=== PATIENT | male | born 1940 | race Caucasian/White ===

== ENCOUNTER → 2018-03-09 11:28 | Outpatient (CLI) | payer MEDICARE, SELFPAY ==
--- NOTE | 2018-03-09 11:35 | XR_ITS ---
XR KUB HISTORY: ITS.REASON: BLADDER CLACULUS ORDERING PHYSICIAN: Cong King MD PATIENT AGE: 77 years COMPARISON: None FINDINGS: The bowel gas pattern is unremarkable. No obvious obstruction.. No abnormal calcifications are evident. No obvious renal or ureteral calculi.. No acute bony anomalies evident. There are calcifications on the left-sided pelvis likely phleboliths. I see no definite abnormal calculus overlying the region of the urinary bladder. 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
== END ==
PROVIDERS: PCP Nurse Practitioner Family; Visit Provider Urology
DX: N21.0 Calculus in bladder (principal)
CPT/HCPCS: 74018

== ENCOUNTER → 2018-07-13 12:36 | Outpatient (CLI) | payer MEDICARE, SELFPAY | PROVIDERS: PCP Nurse Practitioner Family; Visit Provider Urology | DX: R97.20 Elevated prostate specific antigen [PSA] (principal) | CPT/HCPCS: 36415; 84153 ==

== ENCOUNTER → 2019-05-03 10:41 | Outpatient (CLI) | payer MEDICARE, SELFPAY ==
--- NOTE | 2019-05-03 10:45 | XR_ITS ---
PROCEDURE: XR CHEST 2V CLINICAL HISTORY: COUGH COMPARISON: No exams were available for comparison FINDINGS: There is mild cardiomegaly. There has been a prior median sternotomy. No CHF. Slight density is noted in the left lung base and could be due to an area of atelectasis or infiltrate. There is minimal blunting of the left CP angle. No acute bony findings. IMPRESSION: Mild left basilar atelectasis or infiltrate with small left effusion Dictated by: Taurus James MD 05/03/2019 17:04 Electronically signed by Taurus James MD in [place] 05/03/2019 17:04
== END ==
PROVIDERS: PCP Nurse Practitioner Family; Visit Provider Nurse Practitioner Family
DX: R05 Cough (principal)
CPT/HCPCS: 71046

== ENCOUNTER → 2019-06-14 13:09 | Outpatient (POV) | payer MEDICARE, SELFPAY | PROVIDERS: Visit Provider Dermatology | DX: Z00.00 Encounter for general adult medical examination without abnormal findings (principal) ==

== ENCOUNTER → 2019-09-23 10:44 | Outpatient (CLI) | payer MEDICARE, SELFPAY ==
--- NOTE | 2019-09-23 10:50 | XR_ITS ---
PROCEDURE: XR CHEST 2V CLINICAL HISTORY: COUGH COMPARISON: XR CHEST 2V from 05/03/2019 FINDINGS: There has been a prior median sternotomy. There is moderate patient rotation. There is borderline cardiomegaly without failure. Lungs are clear. There are mild degenerative changes in the thoracic spine No acute bony abnormalities. IMPRESSION: No acute findings. Dictated by: Taurus James MD 09/23/2019 11:24 Electronically signed by Taurus James MD in [place] 09/23/2019 11:24
== END ==
PROVIDERS: PCP Nurse Practitioner Family; Visit Provider Nurse Practitioner Family
DX: R05 Cough (principal)
CPT/HCPCS: 71046

== ENCOUNTER → 2020-02-29 11:09 | Outpatient (CLI) | payer MEDICARE, SELFPAY ==
[2020-02-29 13:21] LABS: Alanine Aminotransferase 16 U/L (12-78); Albumin/Globulin Ratio 1.3 (1.1-1.8); Alkaline Phosphatase 74 U/L (38-126); Anion Gap 10.2 mEq/L (5-15); Aspartate Amino Transferase 30 U/L (17-59); Bilirubin,Total 1.6 mg/dl (0.2-1.3); Blood Urea Nitrogen 17 mg/dl (9-20); Carbon Dioxide 29 mmol/L (22.0-30.0); Chloride 100 mmol/L (98-107); Cholesterol 119 mg/dl (140-200); Estimated Glomerular Filt Rate 93 ml/min (>60); GFR (African American) 113 ML/MIN (>60); Glucose 93 mg/dl (74-100); HDL Cholesterol 60 mg/dl (40-60); Potassium 4.2 mmoL/L (3.5-5.1); Sodium 135 mmol/L (136-145); Triglycerides 64 mg/dl (30-150); VLDL Cholesterol 13 mg/dL (0-40)
[2020-02-29 13:32] LABS: Direct LDL Cholesterol 53.76 mg/dL (100-129)
== END ==
PROVIDERS: Visit Provider Internal Medicine Cardiovascular Disease
DX: E78.2 Mixed hyperlipidemia (principal)
CPT/HCPCS: 36415; 80053; 80061

== ENCOUNTER → 2020-05-01 11:10 | Outpatient (POV) | payer MEDICARE, SELFPAY | PROVIDERS: Visit Provider Dermatology | DX: Z00.00 Encounter for general adult medical examination without abnormal findings (principal) ==

== ENCOUNTER → 2020-10-29 12:44 | Outpatient (CLI) | payer MEDICARE, SELFPAY ==
--- NOTE | 2020-10-29 12:55 | XR_ITS ---
PROCEDURE: XR FOOT WT BEARING LT 3V CLINICAL INDICATION: PAIN COMPARISON: No exams were available for comparison FINDINGS: No fracture or dislocation. No lytic or blastic change. There is normal mineralization. There is mild hallux valgus with mild osteoarthritic change of the 1st metatarsophalangeal joint and at the 1st interphalangeal joint. Flexion deformity involves the 2nd through 5th toes. There is a lucency present at the base of the 5th metatarsal and may be due to an old fracture or ununited ossification center. Other findings:None. IMPRESSION: The flexion deformity of the toes with old fracture versus ununited ossification center at the base of the 5th metatarsal. Mild hallux valgus with osteoarthritic change of the 1st MTP joint and 1st interphalangeal joint Dictated by: Taurus James MD 10/29/2020 13:39 Taurus James MD in [place] 10/29/2020 13:39
--- NOTE | 2020-10-29 12:55 | XR_ITS ---
PROCEDURE: XR FOOT WT BEARING RT 3V CLINICAL INDICATION: PAIN COMPARISON: No exams were available for comparison FINDINGS: No fracture or dislocation. No lytic or blastic change. There is normal mineralization. Flexion deformity involves the 1st 2nd 3rd 4th and 5th toes. No significant arthritic change. Other findings:None. IMPRESSION: Flexion deformity of the toes otherwise negative Dictated by: Taurus James MD 10/29/2020 13:37 Taurus James MD in [place] 10/29/2020 13:37
== END ==
PROVIDERS: PCP Nurse Practitioner Family; Visit Provider Podiatrist
DX: M79.673 Pain in unspecified foot (principal)
CPT/HCPCS: 73630

== ENCOUNTER → 2020-11-16 09:27 | Outpatient (CLI) | payer MEDICARE, SELFPAY ==
--- NOTE | 2020-11-16 09:37 | MR_ITS ---
PROCEDURE: MR ABDOMEN WO/W CON CLINICAL INDICATION: EVALUATE LIVER LESION No prior abdominal imaging done here. Pt had prior cholecystectomy and denies any abdominal pain. Pt's son states he has this area on his liver for years , had imaging many years ago, and was told it was nothing to worry about. Pt's bilirubin has recently elevated from 1.1 to 1.6. His new doctor wanted imaging to evaluate the liver and bile ducts. COMPARISON: DX XR CHEST 2V from 09/23/2019 TECHNIQUE: Routine multiplanar multi echo sequences are performed without and with gadolinium enhancement. FINDINGS: There is a 3 x 1.7 x 1.8 cm lobulated lesion within the anterior segment of the right hepatic lobe hypointense on T1 and hyperintense on T2 demonstrating lobular peripheral contrast enhancement with centripetal filling in of the enhancement on the delayed images. This is consistent with a hemangioma. There is some nonspecific flash enhancement adjacent to this lesion on the arterial phase images and also some minimal subcapsular enhancement just posterior to this area on the arterial images. Incidental note is made of a small cystic area in the body of the pancreas posteriorly measuring approximately 7 mm and suggestion of a small cystic area in the tail the pancreas at 7 mm. Motion artifact somewhat obscures fine detail at these areas. There are small bilateral renal cysts. Artifact is present from median sternotomy wires. There has been a prior cholecystectomy. There is mild biliary ectasia which may be reservoir response to the prior cholecystectomy. No filling defects are evident. No evidence of common duct stones. IMPRESSION: 1. 3 cm lobulated lesion in the right hepatic lobe consistent with a hemangioma as described above. 2. Nonspecific flash enhancement adjacent to this area and in the right hepatic lobe laterally. 3. Prior cholecystectomy with mild biliary ectasia. 4. Small cystic lesions of the pancreas nonspecific. Follow-up may confirm stability. Dictated by: Taurus James MD 11/18/2020 11:07 Taurus James MD in [place] 11/18/2020 11:07
== END ==
PROVIDERS: PCP Nurse Practitioner Family; Visit Provider Nurse Practitioner Family
DX: D37.6 Neoplasm of uncertain behavior of liver, gallbladder and bile ducts (principal)
CPT/HCPCS: 74183; 76376; A9576

== ENCOUNTER 2020-12-16 12:30 | Emergency (ER) | payer MEDICARE, SELFPAY ==
[2020-12-16 12:40] VITALS: BP 180/101; PULSE 79; RESP 18; TEMP 36.5; O2SAT 97; BMI 23.7
[2020-12-16 13:09] VITALS: BP 165/87; PULSE 79; RESP 18; TEMP 36.5; O2SAT 97; BMI 23.7
[2020-12-16 13:16] LABS: Apearance,Urine Clear (Clear); Color,Urine Dark Yellow (Yellow); Glucose,Urine (UA) Negative (Negative); Ketones,Urine Negative (Negative); Protein,Urine Negative (Negative); Specific Gravity, Urine 1.025 (1.005-1.030)
--- NOTE | 2020-12-16 13:16 | HMH.EDUTC ---
[facility] [place] Disposition Clinical Impression: UTI (urinary tract infection) Qualifiers: Urinary tract infection type: acute cystitis Hematuria presence: with hematuria Qualified Code(s): N30.01 - Acute cystitis with hematuria Disposition: Home, Self-Care Condition on Discharge: Good Instructions: DI for Urinary Tract Infection (UTI) Additional Instructions: Pauly Martinez or your urologist should be able to request urine culture results Thursday afternoon or Thursday to confirm you are on the right antibiotic Prescriptions: levoFLOXacin [Levaquin 500mg tab] 500 mg PO DAILY 7 Days #7 tab Transmission Status: Pending to [facility] Referrals: Pauly aMrtinez [Primary Care Provider] - Time of Disposition: 13:25 Medical Decision Making - Raúl Inquiry Pt receiving controlled substance: No Vital Signs: 12/16/20 12:40 12/16/20 13:09 Temperature 97.7 F 97.7 F Temperature Source Oral Oral Pulse Rate [Left Radial] 79 79 Respiratory Rate 18 18 Blood Pressure [Left Arm] 180/101 H 165/87 H Blood Pressure Mean [Left Arm] 127 113 Blood Pressure Source [Left Arm] Automatic Cuff Automatic Cuff Blood Pressure Position [Left Arm] Sitting Sitting 02 Sat by Pulse Oximetry 97 97 Oxygen Delivery Method Room Air Room Air - Lab Data Lab results reviewed: Yes: I reviewed the patient's lab results. Orders (Tests/Meds): ORDERS Category Date Time Status Urine Culture Stat Micro 12/16/20 13:15 Ordered [facility] [place] HPI - General Stated complaint: possible UTI Time Seen by Provider: 12/16/20 13:17 Mode of Arrival: Ambulatory Source of Information: Patient Limitations: No Limitations Description of Symptoms (Recalled from Triage Doc. by RN): pt reports burning with urination since having a scope to his bladder on Thursday of last week. Pt reports he has previously had a scope and developed a UTI afterwards. Pt reports he did take a 3 day course of Bactrim after procedure last week but his symptoms have not improved. Pt also reports frequent urination. HEENT Symptoms (Recalled from RN notes): No Resp Symptoms (Recalled from RN notes): No Skin Symptoms (Recalled from RN notes): No MS Symptoms (Recalled from RN notes): No Functional Status (Recalled from RN notes): wnl - History of Present Illness Provider Complaint: Patient had a cystoscopy nearly 2 weeks ago for pre-op testing prior to having a procedure for BPH. He took 3 days of Bactrim following procedure. He complains of frequency, urgency, dysuria, and feeling on incomplete emptying of bladder. No fever. No nausea or vomiting. Onset (ago): week(s) (2) Quality: burning Relieving factors: none Exacerbating factors: none Associated symptoms: denies other symptoms Treatments prior to arrival: other (Bactrim) - Related Data Home Medications Medication Instructions Recorded Confirmed dutasteride 0.5 mg capsule 0.5 mg PO ONCE 12/01/17 11/01/20 levothyroxine 50 mcg tablet 50 mcg PO DAILY tab 12/01/17 11/01/20 ropinirole 0.25 mg tablet 0.25 mg PO TID 12/01/17 11/01/20 alfuzosin 10 mg tablet,extended 10 mg PO DAILY 11/01/20 11/01/20 release 24 hr aspirin 81 mg tablet,delayed 81 mg PO DAILY 11/01/20 11/01/20 release atorvastatin 20 mg tablet 20 mg PO DAILY 11/01/20 11/01/20 ergocalciferol (vitamin D2) 1,250 1,250 mcg PO WEEKLY 11/01/20 11/01/20 mcg (50,000 unit) capsule losartan 50 mg tablet 50 mg PO DAILY 11/01/20 11/01/20 metoprolol succinate 50 mg 50 mg PO DAILY 11/01/20 11/01/20 tablet,extended release 24 hr pantoprazole 40 mg tablet,delayed 40 mg PO DAILY 11/01/20 11/01/20 release ropinirole 3 mg tablet 3 mg PO HS 11/01/20 11/01/20 tamsulosin 0.4 mg capsule 0.4 mg PO HS 11/01/20 11/01/20 Previous Rx's Medication Instructions Recorded levoFLOXacin [Levaquin 500mg 500 mg PO DAILY 7 Days #7 tab 12/16/20 tab] Allergies Allergy/AdvReac Type Severity Reaction Status Date / Time No Known Allergies Allergy Verified 11/01/20 1
[2020-12-16 13:17] LABS: Bilirubin,Urine Negative (Negative); Blood, Urine Trace (Negative); UTC Leukocyte Esterase,Urine 2+ (Negative); UTC Nitrate,Urine Negative (Negative); Urobilinogen,Urine 2 EU/dl (0.2)
[2020-12-16 13:37] VITALS: BP 165/87; PULSE 79; RESP 18; TEMP 36.5; O2SAT 97
== END 2020-12-16 13:37 | disposition home or self-care (01) ==
PROVIDERS: Emergency Provider Physician Assistant; PCP Nurse Practitioner Family
DX: N30.01 Acute cystitis with hematuria (principal); I10 Essential (primary) hypertension; E03.9 Hypothyroidism, unspecified; Z79.899 Other long term (current) drug therapy
CPT/HCPCS: G0463; 81003; 87086; 87088; 87186; 99202

== ENCOUNTER → 2021-03-14 12:50 | Outpatient (CLI) | payer MEDICARE, SELFPAY | PROVIDERS: Visit Provider Physician Assistant | DX: R05 Cough (principal) | CPT/HCPCS: 87070; 87205 ==

== ENCOUNTER → 2021-03-18 11:58 | Outpatient (CLI) | payer MEDICARE, SELFPAY ==
--- NOTE | 2021-03-18 | CA_ITS ---
APPROVED REPORT Administrative Aide: SHILPA Laterality: Bilateral Study Quality: Adequate Indications: CVA/ suspected stroke Risk Factors Hypertension: TIA/CVA History Hx. of CVA two years ago Doppler Spectral Velocity Analysis ECA (R) 70.60/7.10 cm/s ECA (L) 59.10/5.80 cm/s dICA (R) 70.60/19.30 cm/s dICA (L) 54.60/18.60 cm/s Rogelio (R) 57.80/18.00 cm/s Rogelio (L) 48.80/16.10 cm/s pICA (R) 33.70/9.60 cm/s pICA (L) 55.20/16.10 cm/s dCCA (R) 48.20/12.20 cm/s dCCA (L) 41.10/9.60 cm/s pCCA (R) 59.90/9.00 cm/s pCCA (L) 49.40/10.90 cm/s Vert (R) 41.10/10.90 cm/s Vert (L) 30.80/9.00 cm/s ICA/CCA 1.47 ICA/CCA 1.34 Findings Study suggests less than 20% stenosis of the bilateral internal carotid arteries. Duplex evaluation demonstrates antegrade flow of the bilateral vertebral arteries. Conclusion Study suggests less than 20% stenosis of the bilateral internal carotid arteries. Duplex evaluation demonstrates antegrade flow of the bilateral vertebral arteries. Electronically signed by : Taurus James MD 03/18/2021 17:16:22
[2021-03-18 12:54] LABS: Basophils # 0.1 K/mm3 (0-0.2); Basophils % 0.4 % (0.1-2.0); Eosinophils # 0.1 K/mm3 (0.0-0.4); Eosinophils % 0.6 % (0.1-12.0); Hematocrit 42.8 % (42.0-52.0); Hemoglobin 13.3 g/dL (14.1-18.0); Lymphocytes # 3.2 K/mm3 (0.7-4.5); Lymphocytes % 27.7 % (10-50); Mean Corpuscular HGB Conc 31.1 g/dL (31.8-35.4); Mean Corpuscular Hemoglobin 27.5 pg (27.0-31.2); Mean Corpuscular Volume 88.4 fl (80-94); Mean Platelet Volume 7.9 fl (7.4-10.4); Monocytes # 0.9 K/mm3 (0.1-1.0); Monocytes % 7.3 % (1.7-9.3); Neutrophils # 7.5 K/mm3 (1.8-7.8); Neutrophils % 63.9 % (37.0-80.0); Platelet Count 200 K/mm3 (142-424); Red Blood Count 4.84 M/mm3 (4.60-6.20); Red Cell Distribution Width 13.9 % (11.5-17.5); White Blood Count 11.7 K/mm3 (4.8-10.8)
[2021-03-18 13:50] LABS: Ferritin 38.7 ng/ml (17.9-464)
== END ==
PROVIDERS: PCP Family Medicine; Visit Provider Specialist
DX: E83.10 Disorder of iron metabolism, unspecified (principal); I63.89 Other cerebral infarction
CPT/HCPCS: 36415; 82728; 82746; 85025; 93880

== ENCOUNTER → 2021-06-18 17:10 | Outpatient (CLI) | payer MEDICARE, SELFPAY ==
[2021-06-18 18:11] LABS: Basophils # 0.1 K/mm3 (0-0.2); Basophils % 0.6 % (0.1-2.0); Eosinophils # 0.1 K/mm3 (0.0-0.4); Eosinophils % 1.8 % (0.1-12.0); Hematocrit 45.3 % (42.0-52.0); Hemoglobin 14.2 g/dL (14.1-18.0); Lymphocytes # 2.3 K/mm3 (0.7-4.5); Lymphocytes % 28.8 % (10-50); Mean Corpuscular HGB Conc 31.4 g/dL (31.8-35.4); Mean Corpuscular Hemoglobin 29.8 pg (27.0-31.2); Mean Corpuscular Volume 94.7 fl (80-94); Mean Platelet Volume 9.7 fl (7.4-10.4); Monocytes # 0.6 K/mm3 (0.1-1.0); Monocytes % 7.6 % (1.7-9.3); Neutrophils # 4.9 K/mm3 (1.8-7.8); Neutrophils % 61.3 % (37.0-80.0); Platelet Count 242 K/mm3 (142-424); Red Blood Count 4.79 M/mm3 (4.60-6.20); Red Cell Distribution Width 14.5 % (11.5-17.5)
[2021-06-18 18:46] LABS: Alanine Aminotransferase 18 U/L (12-78); Albumin Level 3.8 g/dl (3.5-5.0); Albumin/Globulin Ratio 1.4 (1.1-1.8); Alkaline Phosphatase 63 U/L (38-126); Anion Gap 13.2 mEq/L (5-15); Aspartate Amino Transferase 27 U/L (17-59); Bilirubin,Total 1.3 mg/dl (0.2-1.3); Blood Urea Nitrogen 16 mg/dl (9-20); Calcium 8.9 mg/dl (8.4-10.2); Carbon Dioxide 31 mmol/L (22.0-30.0); Chloride 100 mmol/L (98-107); Chol/HDL Ratio 3.5 (1-3.5); Cholesterol 159 mg/dl (140-200); Estimated Glomerular Filt Rate 93 ml/min (>60); GFR (African American) 112 ML/MIN (>60); Globulin 2.8 g/dL (1.3-3.2); Glucose 75 mg/dl (74-100); HDL Cholesterol 46 mg/dl (40-60); Potassium 4.2 mmoL/L (3.5-5.1); Sodium 140 mmol/L (136-145); Total Protein,Serum 6.6 g/dl (6.3-8.2); Triglycerides 64 mg/dl (30-150); VLDL Cholesterol 13 mg/dL (0-40)
[2021-06-18 18:57] LABS: Direct LDL Cholesterol 82.18 mg/dL (100-129)
[2021-06-18 19:14] LABS: Prostate Specific Ag Screen 2.9 ng/ml (0.0-4.0); Thyroid Stimulating Hormone 2.72 uIU/mL (0.465-4.68)
== END ==
PROVIDERS: Visit Provider Internal Medicine
DX: I25.10 Atherosclerotic heart disease of native coronary artery without angina pectoris (principal); I10 Essential (primary) hypertension; E78.5 Hyperlipidemia, unspecified; I69.998 Other sequelae following unspecified cerebrovascular disease; R63.1 Polydipsia; N40.1 Benign prostatic hyperplasia with lower urinary tract symptoms; Z12.5 Encounter for screening for malignant neoplasm of prostate; Z95.3 Presence of xenogenic heart valve
CPT/HCPCS: 80053; 80061; 84443; 85025; G0103

== ENCOUNTER → 2022-04-30 19:27 | Outpatient (CLI) | payer MEDICARE, SELFPAY ==
[2022-04-30 20:27] LABS: Basophils # 0.1 K/mm3 (0-0.2); Basophils % 0.9 % (0.1-2.0); Eosinophils # 0.2 K/mm3 (0.0-0.4); Hematocrit 43.3 % (42.0-52.0); Hemoglobin 13.4 g/dL (14.1-18.0); Lymphocytes # 2.1 K/mm3 (0.7-4.5); Lymphocytes % 27.3 % (10-50); Mean Corpuscular HGB Conc 30.9 g/dL (31.8-35.4); Mean Corpuscular Hemoglobin 28.7 pg (27.0-31.2); Mean Corpuscular Volume 92.8 fl (80-94); Mean Platelet Volume 9.2 fl (7.4-10.4); Monocytes # 0.6 K/mm3 (0.1-1.0); Monocytes % 7.4 % (1.7-9.3); Neutrophils # 4.9 K/mm3 (1.8-7.8); Neutrophils % 62.4 % (37.0-80.0); Platelet Count 250 K/mm3 (142-424); Red Blood Count 4.66 M/mm3 (4.60-6.20); Red Cell Distribution Width 14.4 % (11.5-17.5); White Blood Count 7.8 K/mm3 (4.8-10.8)
[2022-04-30 20:54] LABS: Erythrocyte Sedimentation Rate 10 mm/hr (0-20)
[2022-04-30 20:57] LABS: Alanine Aminotransferase 17 U/L (12-78); Albumin Level 3.8 g/dl (3.5-5.0); Albumin/Globulin Ratio 1.4 (1.1-1.8); Alkaline Phosphatase 74 U/L (38-126); Anion Gap 10.3 mEq/L (5-15); Aspartate Amino Transferase 26 U/L (17-59); Bilirubin,Total 1.2 mg/dl (0.2-1.3); Blood Urea Nitrogen 21 mg/dl (9-20); Calcium 8.5 mg/dl (8.4-10.2); Carbon Dioxide 30 mmol/L (22.0-30.0); Chloride 102 mmol/L (98-107); Chol/HDL Ratio 3.1 (1-3.5); Cholesterol 116 mg/dl (140-200); Estimated Glomerular Filt Rate 81 ml/min (>60); GFR (African American) 98 ML/MIN (>60); Globulin 2.8 g/dL (1.3-3.2); Glucose 69 mg/dl (74-100); HDL Cholesterol 37 mg/dl (40-60); Potassium 4.3 mmoL/L (3.5-5.1); Sodium 138 mmol/L (136-145); Total Protein,Serum 6.6 g/dl (6.3-8.2); Triglycerides 90 mg/dl (30-150); VLDL Cholesterol 18 mg/dL (0-40)
[2022-04-30 21:28] LABS: Prostate Specific Ag Screen 3.4 ng/ml (0.0-4.0); Thyroid Stimulating Hormone 4.01 uIU/mL (0.465-4.68)
[2022-05-02 14:12] LABS: Direct LDL Cholesterol 53 mg/dL (100-129)
== END ==
PROVIDERS: PCP Internal Medicine; Visit Provider Internal Medicine
DX: I25.10 Atherosclerotic heart disease of native coronary artery without angina pectoris (principal); I10 Essential (primary) hypertension; E03.9 Hypothyroidism, unspecified; E78.5 Hyperlipidemia, unspecified; M79.671 Pain in right foot; G25.81 Restless legs syndrome; Z12.5 Encounter for screening for malignant neoplasm of prostate
CPT/HCPCS: 80053; 80061; 84443; 85025; 85651; G0103

== ENCOUNTER → 2023-01-21 17:01 | Outpatient (CLI) | payer MEDICARE, SELFPAY ==
[2023-01-21 18:25] LABS: Basophils % 0.5 % (0.1-2.0); Eosinophils # 0.2 K/mm3 (0.0-0.4); Eosinophils % 2.3 % (0.1-12.0); Hematocrit 44.8 % (42.0-52.0); Hemoglobin 14.1 g/dL (14.1-18.0); Lymphocytes # 2.1 K/mm3 (0.7-4.5); Lymphocytes % 27.4 % (10-50); Mean Corpuscular HGB Conc 31.4 g/dL (31.8-35.4); Mean Corpuscular Hemoglobin 27.9 pg (27.0-31.2); Mean Platelet Volume 9.4 fl (7.4-10.4); Monocytes # 0.7 K/mm3 (0.1-1.0); Neutrophils # 4.6 K/mm3 (1.8-7.8); Neutrophils % 60.7 % (37.0-80.0); Platelet Count 229 K/mm3 (142-424); Red Blood Count 5.04 M/mm3 (4.60-6.20); Red Cell Distribution Width 14.8 % (11.5-17.5); White Blood Count 7.6 K/mm3 (4.8-10.8)
[2023-01-21 19:11] LABS: Alanine Aminotransferase 25 U/L (12-78); Albumin Level 3.9 g/dl (3.5-5.0); Albumin/Globulin Ratio 1.5 (1.1-1.8); Alkaline Phosphatase 66 U/L (38-126); Anion Gap 14.3 mEq/L (5-15); Aspartate Amino Transferase 31 U/L (17-59); Bilirubin,Total 1.4 mg/dl (0.2-1.3); Blood Urea Nitrogen 18 mg/dl (9-20); Calcium 8.6 mg/dl (8.4-10.2); Carbon Dioxide 29 mmol/L (22.0-30.0); Chloride 101 mmol/L (98-107); Chol/HDL Ratio 3.2 (1-3.5); Cholesterol 121 mg/dl (140-200); Estimated Glomerular Filt Rate 81 ml/min (>60); GFR (African American) 98 ML/MIN (>60); Globulin 2.6 g/dL (1.3-3.2); Glucose 81 mg/dl (74-100); HDL Cholesterol 38 mg/dl (40-60); Potassium 4.3 mmoL/L (3.5-5.1); Sodium 140 mmol/L (136-145); Total Protein,Serum 6.5 g/dl (6.3-8.2); Triglycerides 100 mg/dl (30-150); VLDL Cholesterol 20 mg/dL (0-40)
[2023-01-21 19:23] LABS: Direct LDL Cholesterol 61.92 mg/dL (100-129)
[2023-01-21 19:43] LABS: Prostate Specific Ag Screen 3.8 ng/ml (0.0-4.0); Thyroid Stimulating Hormone 3.88 uIU/mL (0.465-4.68)
== END ==
PROVIDERS: PCP Internal Medicine; Visit Provider Internal Medicine
DX: I25.10 Atherosclerotic heart disease of native coronary artery without angina pectoris (principal); I10 Essential (primary) hypertension; E78.5 Hyperlipidemia, unspecified; R53.83 Other fatigue; G25.81 Restless legs syndrome; Z85.820 Personal history of malignant melanoma of skin; Z95.3 Presence of xenogenic heart valve; Z12.5 Encounter for screening for malignant neoplasm of prostate
CPT/HCPCS: 80053; 80061; 84443; 85025; G0103

== ENCOUNTER → 2023-04-06 11:56 | Outpatient (CLI) | payer MEDICARE, SELFPAY ==
--- NOTE | 2023-04-06 12:05 | XR_ITS ---
FINAL REPORT CLINICAL HISTORY: Ankle Pain FINDINGS: LEFT ANKLE Three views demonstrate no acute fracture or dislocation. The visualized joint spaces are normally aligned there are mild degenerative changes. A small posterior calcaneal spur is noted. There is soft tissue swelling. IMPRESSION: No acute bony abnormality. Reviewed, Interpreted and Dictated by Bull Walker III, MD Transcribed by Giselle Ríos Authenticated and [facility]
--- NOTE | 2023-04-06 12:05 | XR_ITS ---
FINAL REPORT CLINICAL HISTORY: Foot Pain COMPARISON: 10/29/2020 FINDINGS: RIGHT FOOT 3 views of the right foot were obtained. There is no acute fracture or dislocation. There are mild degenerative changes. Small calcaneal spurs are seen. There is a stable subchondral focus in the third metatarsal which could represent bone island. Soft tissues are unremarkable. IMPRESSION: No acute bony abnormality. Reviewed, Interpreted and Dictated by Bull Walker III, MD Transcribed by Giselle Ríos Authenticated and [facility]
--- NOTE | 2023-04-06 12:05 | XR_ITS ---
FINAL REPORT CLINICAL HISTORY: Foot Pain FINDINGS: LEFT FOOT Three views demonstrate no acute fracture or dislocation. The visualized joint spaces are normally aligned. There are mild degenerative changes. A small posterior calcaneal spur is noted. There is soft tissue swelling. IMPRESSION: No acute bony abnormality. Reviewed, Interpreted and Dictated by Bull Walker III, MD Transcribed by Giselle Ríos Authenticated and [facility]
--- NOTE | 2023-04-06 12:05 | XR_ITS ---
FINAL REPORT CLINICAL HISTORY: Ankle Pain COMPARISON: 10/29/2020 FINDINGS: RIGHT ANKLE 3 views of the right ankle were obtained. There is no acute fracture or dislocation. There are mild degenerative changes. Small calcaneal spurs are seen. There is a stable subchondral focus in the third metatarsal which could represent bone island. Soft tissues are unremarkable. IMPRESSION: No acute bony abnormality. Reviewed, Interpreted and Dictated by Bull Walker III, MD Transcribed by Giselle Ríos Authenticated and [facility]
== END ==
PROVIDERS: PCP Internal Medicine; Visit Provider Nurse Practitioner Family
DX: M25.572 Pain in left ankle and joints of left foot (principal); M25.571 Pain in right ankle and joints of right foot; M79.672 Pain in left foot; M79.671 Pain in right foot
CPT/HCPCS: 73610; 73630

== ENCOUNTER → 2023-04-28 16:49 | Outpatient (CLI) | payer MEDICARE, SELFPAY ==
[2023-04-28 16:53] LABS: Microscopic, Urine URINE MICROSCOPIC (MICROSCOPIC)
[2023-04-28 17:49] LABS: Appearance,Urine CLOUDY (Clear); Blood, Urine 3+ (Negative); Color,Urine RED (Yellow); Glucose,Urine (UA) TRACE (Negative); Ketones,Urine TRACE (Negative); Leukocyte Esterase,Urine 2+ (Negative); Nitrate,Urine POSITIVE (Negative); PH,Urine 6.5 (5.0-8.5); Protein,Urine 3+ (Negative)
[2023-04-28 17:52] LABS: Bilirubin,Urine 2+ (Negative)
[2023-04-28 18:18] LABS: Bacteria,Urine 1+ /lpf; RBC,Urine TNTC #/hpf (0-3); WBC,Urine TNTC #/hpf (0-3)
== END ==
PROVIDERS: PCP Internal Medicine; Visit Provider Internal Medicine
DX: R31.0 Gross hematuria (principal); R10.9 Unspecified abdominal pain; N39.0 Urinary tract infection, site not specified
CPT/HCPCS: 81001; 87086

== ENCOUNTER → 2023-04-29 12:52 | Outpatient (CLI) | payer MEDICARE, SELFPAY ==
--- NOTE | 2023-04-29 | CT_ITS ---
FINAL REPORT TECHNIQUE: Axial images through the abdomen and pelvis were performed without contrast. This study was performed with techniques to keep radiation doses as low as reasonably achievable, (ALARA). Individualized dose reduction techniques using automated exposure control or adjustment of mA and/or kV according to the patient's size were employed. CLINICAL HISTORY: gross hematuria, UTI, abd pain FINDINGS: ABDOMEN: There is mild atelectasis or scar in the lung bases. The heart size is normal. There is a nonspecific low-attenuation area in the mid liver measuring 25 mm of uncertain etiology, could represent focal fatty infiltration or a mass. The patient is status post cholecystectomy. The spleen is normal. No adrenal mass is identified. The aorta is normal in caliber. There is no significant free fluid or adenopathy. There is a 16 mm mass in the lateral left kidney which can not be accurately characterized without contrast, favor a cyst. There is a 7 mm mass in the medial right kidney which is not definitely a cyst. Moderate vascular calcification is identified. There is no nephrolithiasis. There is no hydronephrosis. PELVIS: The appendix is not identified. There is diffuse colonic diverticulosis. There is a probable stone in the bladder measuring 15 mm. There is diffuse prostate enlargement. There is no significant free fluid or adenopathy. There are severe degenerative changes of the hips. IMPRESSION: Probable bladder stone. Diffuse prostate enlargement, may represent BPH. Bilateral renal masses. If indicated, renal mass protocol CT or MRI may be helpful. Nonspecific hepatic abnormality. Follow-up CT or MRI may be helpful. Reviewed, Interpreted and Dictated by Bull Walker III, MD Transcribed by Reena Burch Authenticated and [facility]
== END ==
PROVIDERS: PCP Internal Medicine; Visit Provider Internal Medicine
DX: R10.9 Unspecified abdominal pain (principal); N39.0 Urinary tract infection, site not specified; R31.0 Gross hematuria
CPT/HCPCS: 74176

== ENCOUNTER → 2023-05-06 11:41 | Outpatient (CLI) | payer MEDICARE, SELFPAY ==
[2023-05-06 13:43] LABS: Blood Urea Nitrogen 18 mg/dl (9-20)
[2023-05-06 17:24] LABS: Estimated Glomerular Filt Rate 64 ml/min (>60); GFR (African American) 77 ML/MIN (>60)
== END ==
PROVIDERS: PCP Internal Medicine; Visit Provider Internal Medicine
DX: N28.89 Other specified disorders of kidney and ureter (principal)
CPT/HCPCS: 36415; 82565; 84520

== ENCOUNTER 2023-11-11 11:04 | Emergency (ER) | payer MEDICARE, SELFPAY ==
[2023-11-11] VITALS (8 sets, daily range): BP systolic 165–198; BP diastolic 91–112; PULSE 77–106; RESP 20–22; TEMP 36.4–36.7; O2SAT 93–95; BMI 29.8
--- NOTE | 2023-11-11 11:32 | XR_ITS ---
FINAL REPORT CLINICAL HISTORY: HTN, hypoxemia FINDINGS: SINGLE-VIEW CHEST There is cardiomegaly. The patient is status post median sternotomy. The lungs are clear. There is no pneumothorax. IMPRESSION: No acute cardiopulmonary process. Reviewed, Interpreted and Dictated by Bull Walker III, MD Transcribed by Reena Burch Authenticated and [facility]
--- NOTE | 2023-11-11 11:33 | CT_ITS ---
FINAL REPORT CLINICAL HISTORY: tachycardia, hypoxemia COMPARISON: None FINDINGS: Thin section axial CT images of the chest were obtained with contrast. 3D reformatted images were also obtained. This study was performed with techniques to keep radiation doses as low as reasonably achievable (ALARA). Individualized dose reduction techniques using automated exposure control or adjustment of mA and/or kV according to the patient's size were employed. There is no evidence of pulmonary embolism. 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 There is no evidence of mediastinal or hilar mass or adenopathy. Cardiomegaly is noted. Prior median sternotomy. There is no evidence of pulmonary mass or nodule. There is mild scarring. There is mild atelectasis in the lung bases. Limited images of the upper abdomen demonstrate a 24 mm low-attenuation focus in the lateral aspect of the liver which is nonspecific. Postcholecystectomy. IMPRESSION: No evidence of pulmonary embolism. 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 24 mm focus lateral aspect of the liver, nonspecific. If indicated, follow-up abdomen CT with contrast or liver MRI could better evaluate. Reviewed, Interpreted and Dictated by Bull Walker III, MD Transcribed by Laura Casiano Authenticated and [facility]
--- NOTE | 2023-11-11 11:39 | ECG_ITS ---
APPROVED REPORT Exam: Resting ECG HR:92 bpm ECG Measurements Heart Rate [address] 181 P 41 QRSd 98 QRS -31 QT 356 T 62 QTc 405 Conclusion SINUS RHYTHM Electronically signed by : KIMBERLY LOUIS, 11/12/2023 12:50:40
--- NOTE | 2023-11-11 11:44 | HMH.EDGENADL ---
Discharge Plan Disposition Patient Disposition: Home, Self-Care Chief Complaint: Weakness Prescriptions Prescriptions: No Action losartan 50 mg tablet 50 mg PO DAILY aspirin [Adult Aspirin Regimen] 81 mg tablet,delayed release (DR/EC) 81 mg PO DAILY atorvastatin 20 mg tablet 20 mg PO DAILY tamsulosin 0.4 mg capsule 0.4 mg PO HS pantoprazole 40 mg tablet,delayed release (DR/EC) 40 mg PO DAILY loratadine [Allergy Relief (loratadine)] 10 mg tablet 10 mg PO DAILY Qty: 30 2RF dutasteride [Avodart] 0.5 mg capsule 0.5 mg PO ONCE levothyroxine [Synthroid] 50 mcg tablet 50 mcg PO DAILY Bystolic 10 mg tablet 10 mg PO DAILY Qty: 90 3RF Slow Fe 142 mg (45 mg iron) tablet extended release 142 mg PO DAILY Qty: 30 12RF Referrals Follow up/Referrals: Clifford Horner MD [Primary Care Provider] - See instructions Activity Restrictions/Add. Instructions Additional Instructions/Restrictions: Call your family doctor to establish care for this visit to the emergency department and schedule follow-up within 48 hours to ensure improvement. If you have any worsening of your condition or any other concerning signs or symptoms, return to the emergency department or your primary care doctor for further evaluation. Take 2 losartan daily and continue monitoring your blood pressure for a week. If it continues to be elevated beyond that, you can talk to your family physician about adding on hydrochlorothiazide, or taking combination pill of losartan and hydrochlorothiazide (or a combination pill with a similar family of drugs) Clinical Impressions Clinical Impression: Hypertension Discharge ED Provider: Xavier Sy General Adult HPI General Chief complaint: Weakness Stated complaint: High BP Time Seen by Provider: 11/11/23 11:08 Mode of Arrival: Wheelchair Source of Information: Patient Limitations: No Limitations Description of Symptoms (Recalled from ER Triage Doc. by RN): Pt. is here with complaints of hypertension and dizziness for about 1 week. He has a history of a CABG with valve replacement in 2020 and a subsequent stroke after. He has residual left sided weakeness. He ambulates with a walker at home most of the time, but in the last week has become more weak and dizzy. He states he takes Losartan 50 mg daily but since his BP has been running high he has been taking 2 tablets (100 mg) daily for the last week. 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 Patient states that he has had hypertensive blood pressures at home over the past 2 or 3 weeks. Has been taking his losartan 40 as prescribed, other than the past couple of days. He has taken 60 mg and 80 mg. He notes that when he takes 80 mg of losartan, his blood pressure is much more within control. Denies headache, dizziness, chest pain, shortness of breath, nausea or vomiting, lower extremity swelling, fevers or chills, or any other concerns. Came in for further evaluation because he was unable to see his family doctor today. Please note that above description of symptoms, in this electronic medical record under categorization of recalled from ER triage doctor by RN are reflective of an initial nursing assessment, however, is not reflective of my full history and physical exam that was personally taken and clarified. Consequentially, this preceding description of symptoms, which may include the patient's categorized chief complaint in the EMR, do not reflect my personal clinical impression, and the ultimate description of history of present illness and patient stated complaints should be deferred to this section of the note. Unless stated otherwise or congruent with this section of the note, additional signs, symptoms, or incongruence should be interpreted as inaccurate with my clinical impression. Related Data Home Medications Medication Instructions Recorded Confirmed dutasteride 0.5 mg capsule 0.5 mg PO ONCE stool softner 12/01/17 11/11/23 (Avodart) levothyroxine 50 mcg tablet 50 mcg PO DAILY hypothyroidism 12/01/17 11/11/23 (Synthroid) aspirin 81 mg tablet,delayed 81 mg PO DAILY Blood thinner 11/01/20 11/11/23 release (Adult Aspirin Regimen) atorvastatin 20 mg tablet 20 mg PO DAILY Cholesterol 11/01/20 11/11/23 losartan 50 mg tablet 50 mg PO DAILY Cholesterol 11/01/20 11/11/23 pantoprazole 40 mg tablet,delayed 40 mg PO DAILY GERD 11/01/20 11/11/23 release tamsulosin 0.4 mg capsule 0.4 mg PO HS BPH 11/01/20 11/11/23 Previous Rx's Medication Instructions Recorded nebivolol 10 mg tablet (Bystolic) 10 mg PO DAILY #90 tabs 02/11/21 loratadine 10 mg tablet (Allergy 10 mg PO DAILY #30 tabs 03/11/21 Relief (loratadine)) ferrous sulfate 142 mg (45 mg 142 mg PO DAILY #30 tabs 03/25/21 iron) tablet,extended release (Slow Fe) Allergies Allergy/AdvReac Type Severity Reaction Status Date / Time No Known Allergies Allergy Verified 04/06/23 13:33 [facility] Disclaimer: The information contained in this section may have been updated after the patient was seen, as this information can be updated by other users. Social History Smoking Status: Never smoker second hand exposure: No alcohol intake: never substance use type: denies use current occupational status: retired Travel in the last 8 weeks: None ROS Obtained: Yes All systems reviewed & no additional complaints except as documented Physical Exam General General appearance: alert and in no apparent distress Head Head exam: atraumatic and normocephalic Eye Eye exam: Present normal appearance, PERRL and EOMI ENT ENT exam: Present mucous membranes moist Neck Neck exam: Present normal inspection, full ROM and trachea midline Respiratory Respiratory exam: Absent respiratory distress, wheezes, stridor, accessory muscle use or prolonged expiratory phase Cardiovascular Cardiovascular exam: Present normal rhythm Abdominal Exam Abdominal exam: Present soft; Absent distention, tenderness, guarding, rebound or rigidity Extremities Exam Extremities exam: Absent edema Neurological Exam Neurological exam: Present alert, oriented X3, CN II-XII intact and normal gait; Absent motor sensory deficit Skin Skin exam: Present warm and dry; Absent diaphoresis or erythema Medical Decision Making Medical Records Medical records reviewed: Yes I reviewed the patient's medical records. Raúl Inquiry Pt receiving controlled substance: No Raúl was queried for this patient: No Vital Signs: 11/11/23 11:13 11/11/23 12:09 11/11/23 12:45 Temperature 97.6 F Temperature Source Oral Pulse Rate 89 106 H Pulse Rate [Right Brachial] 104 H Respiratory Rate 22 Blood Pressure 190/100 H 170/112 H Blood Pressure [Right Arm] 198/96 H Blood Pressure Mean [Right Arm] 130 Blood Pressure Source [Right Arm] Automatic Cuff Blood Pressure Position [Right Arm] Sitting 02 Sat by Pulse Oximetry 94 L 94 L 94 L Oxygen Delivery Method Room Air 11/11/23 13:15 11/11/23 13:30 11/11/23 14:00 Temperature Temperature Source Pulse Rate 84 77 Pulse Rate [Right Brachial] Respiratory Rate Blood Pressure 170/112 H 166/91 H 165/97 H Blood Pressure [Right Arm] Blood Pressure Mean [Right Arm] Blood Pressure Source [Right Arm] Blood Pressure Position [Right Arm] 02 Sat by Pulse Oximetry 95 93 L Oxygen Delivery Method Lab Data Lab Results 11/11/23 11:41: Urine Color Yellow, Urine Appearance Clear, Urine pH 7.0, Ur Specific [place] 1.015, Urine Protein Negative, Urine Glucose (UA) Negative, Urine Ketones Negative, Urine Blood Trace-i, Urine Nitrate Negative, Urine Bilirubin Negative, Urine Urobilinogen 0.2, Ur Leukocyte Esterase 1+ A, Urine RBC Occasional, Urine WBC 5-10, Ur Squamous Epith Cells Occasional, Urine Bacteria 1+ 11/11/23 11:48: WBC 9.0, RBC 5.19, Hgb 15.7, Hct 49.6, MCV 95.6 H, MCH 30.3, MCHC 31.7 L, RDW 14.3, Plt Count 232, MPV 8.9, Neut % (Auto) 78.2, Lymph % (Auto) 15.3, [place] % (Auto) 4.8, Eos % (Auto) 0.9, Baso % (Auto) 0.8, Neut # (Auto) 7.1, Lymph # (Auto) 1.4, [place] # (Auto) 0.4, Eos # (Auto) 0.1, Baso # (Auto) 0.1, Sodium 139, Potassium 3.6, Chloride 100, Carbon Dioxide 32 H, Anion Gap 10.6, BUN 15, Creatinine 1.00, Estimated Creat Clear 78, Estimated GFR 71, Est GFR ( Amer) 86, Glucose 118 H, Calcium 8.9, Total Bilirubin 1.5 H, AST 45, ALT 43, Alkaline Phosphatase 67, Troponin I < 0.01, NT-Pro-B Natriuret Pep 571 H, Total Protein 7.8, Albumin 4.5, Globulin 3.3 H, Albumin/Globulin Ratio 1.4 11/11/23 11:48 11/11/23 11:48 Orders (Tests/Meds): ED MEDICATIONS Generic Name Dose Route Start Last Admin Trade Name Freq PRN Reason Stop Dose Admin Sodium Chloride 10 ml 11/11/23 12:30 Sodium Chloride 0.9% 10ml Syr (Rad Only) IV 12/11/23 12:29 NEEDED PRN Maintain IV Site Discontinued Medications Generic Name Dose Route Start Last Admin Trade Name Kailyn PRN Reason Stop Dose Admin Iopamidol 70 ml 11/11/23 12:30 11/11/23 12:38 Iopamidol-370 (76%);100ml Bottle IV 11/11/23 12:31 70 ml ONCE ONE Administration Labetalol HCl 10 mg 11/11/23 12:50 11/11/23 13:15 Labetalol 20mg/4ml Syringe IV 11/11/23 12:51 10 mg ONCE ONE Administration Sodium Chloride 50 ml 11/11/23 12:30 11/11/23 12:38 0.9 % Sodium Chloride 50 Ml Vial IV 11/11/23 12:31 50 ml ONCE ONE Administration ORDERS Category Date Time Status CT angio chest PE protocol Stat Cat Scan 11/11/23 11:33 Completed CXR --portable [XR chest portable] Stat Exams 11/11/23 11:32 Completed Brain Natriuretic Peptide Stat Lab 11/11/23 11:48 Completed CBC w/Auto Diff [Complete Blood Count Auto Diff] Stat Lab 11/11/23 11:48 Completed CMP [Comprehensive Metabolic Panel] Stat Lab 11/11/23 11:48 Completed Trop I [Troponin I] Stat Lab 11/11/23 11:48 Completed Troponin I Q3H Lab 11/11/23 14:45 Ordered Troponin I Q3H Lab 11/11/23 17:45 Ordered UA [Urinalysis and Microscopic] Stat Lab 11/11/23 11:41 Completed Urine Culture Stat Micro 11/11/23 11:41 Received HEART Score History (anamnesis): Slightly suspicious ECG: Normal Age: >65 years Risk factors: 3 or more risk factors Troponin: </= normal limit HEART Score: 4 Medical Decision Narrative: 83-year-old male with history tension, previous CVA after CABG/aortic valve replacement with minimal deficits, but left-sided weakness presenting with hypertension. Patient states that he has had hypertensive blood pressures at home over the past 2 or 3 weeks. Has been taking his losartan 40 as prescribed, other than the past couple of days. He has taken 60 mg and 80 mg. He notes that when he takes 80 mg of losartan, his blood pressure is much more within control. Denies headache, dizziness, chest pain, shortness of breath, nausea or vomiting, lower extremity swelling, fevers or chills, or any other concerns. Came in for further evaluation because he was unable to see his family doctor today. History was obtained via conversation with patient. On arrival, patient hemodynamically stable, alert, oriented x4, appropriate, GCS 15, moving all extremities spontaneously, pupils equal and reactive to light. Full physical exam performed and significant for patient is hypertensive nearly 200/100. Intermittently tachycardic rate around 100 bpm. He is saturating 90 to 92% during my evaluation with good waveform on the monitor, but denying any shortness of breath or symptoms at this time.. Differential includes CHF, PE, pneumothorax, pneumonia, bronchitis, COPD, dissection, among others. Patient was given labetalol 10 mg for symptomatic management and correction of underlying abnormalities. Workup independently interpreted and significant for nonactionable CBC or chemistry. Kidney function normal. LFTs normal. Troponin negative, BNP mildly elevated at 570. Chest x-ray without acute cardiopulmonary airspace disease. Because patient initially hypoxemic on arrival, CTA of the chest was ordered. Patient has ectatic thoracic aorta, but no evidence of PE, pneumothorax, pneumonia. See radiology read for full review of final results. Independent interpretation of EKG shows sinus rhythm 92 beats a minute no ST or T wave changes concerning for acute ischemia. Patient has leftward leaning axis. OK, QRS, QT intervals within normal limits. Heart score 4. Given patient presentation, workup, history, this most likely represents asymptomatic hypertension. Prior to discharge, patient was given another dose of his home 50 mg losartan. Blood pressure steadily trended downward and patient remained asymptomatic. Is recommended he follow-up with family doctor regarding this visit to the emergency department. Because patient at baseline without signs or symptoms of clinical decompensation, deemed appropriate for discharge. Results were relayed to patient who voiced understanding and were agreeable to outpatient management and follow up. I discussed my clinical impression with patient and answered all questions. At this time, the evidence for any other entities in the differential is insufficient to warrant any further testing or ED observation. This was explained as well. Advisory was given that persistent or worsening symptoms require further evaluation. I confirmed the understanding of this discussion. Critical Care Critical Care Time Critical Care Time: No
[2023-11-11 11:46] LABS: Microscopic, Urine URINE MICROSCOPIC (MICROSCOPIC)
[2023-11-11 11:52] LABS: Appearance,Urine CLEAR (Clear); Bilirubin,Urine Negative (Negative); Blood, Urine TRACE-I (Negative); Color,Urine YELLOW (Yellow); Glucose,Urine (UA) Negative (Negative); Ketones,Urine Negative (Negative); Leukocyte Esterase,Urine 1+ (Negative); Nitrate,Urine Negative (Negative); Protein,Urine Negative (Negative); Specific Gravity, Urine 1.015 (1.005-1.030); Urobilinogen,Urine 0.2 EU/dl (0.2)
[2023-11-11 11:57] LABS: Basophils # 0.1 K/mm3 (0-0.2); Basophils % 0.8 % (0.1-2.0); Eosinophils # 0.1 K/mm3 (0.0-0.4); Eosinophils % 0.9 % (0.1-12.0); Hematocrit 49.6 % (42.0-52.0); Hemoglobin 15.7 g/dL (14.1-18.0); Lymphocytes # 1.4 K/mm3 (0.7-4.5); Lymphocytes % 15.3 % (10-50); Mean Corpuscular HGB Conc 31.7 g/dL (31.8-35.4); Mean Corpuscular Hemoglobin 30.3 pg (27.0-31.2); Mean Corpuscular Volume 95.6 fl (80-94); Mean Platelet Volume 8.9 fl (7.4-10.4); Monocytes # 0.4 K/mm3 (0.1-1.0); Monocytes % 4.8 % (1.7-9.3); Neutrophils # 7.1 K/mm3 (1.8-7.8); Neutrophils % 78.2 % (37.0-80.0); Platelet Count 232 K/mm3 (142-424); Red Blood Count 5.19 M/mm3 (4.60-6.20); Red Cell Distribution Width 14.3 % (11.5-17.5)
[2023-11-11 12:04] LABS: Alanine Aminotransferase 43 U/L (12-78); Albumin Level 4.5 g/dl (3.5-5.0); Albumin/Globulin Ratio 1.4 (1.1-1.8); Alkaline Phosphatase 67 U/L (38-126); Anion Gap 10.6 mEq/L (5-15); Aspartate Amino Transferase 45 U/L (17-59); Bilirubin,Total 1.5 mg/dl (0.2-1.3); Blood Urea Nitrogen 15 mg/dl (9-20); Calcium 8.9 mg/dl (8.4-10.2); Carbon Dioxide 32 mmol/L (22.0-30.0); Chloride 100 mmol/L (98-107); Creatinine Clearance Estimated 78 mL/min (50-200); Estimated Glomerular Filt Rate 71 ml/min (>60); GFR (African American) 86 ML/MIN (>60); Globulin 3.3 g/dL (1.3-3.2); Glucose 118 mg/dl (74-100); Potassium 3.6 mmoL/L (3.5-5.1); Sodium 139 mmol/L (136-145); Total Protein,Serum 7.8 g/dl (6.3-8.2)
[2023-11-11 12:18] LABS: NT Pro Brain Natriuretic Pep. 571 pg/mL (0-450)
[2023-11-11 12:26] LABS: Troponin I < 0.01 ng/ml (0.00-0.034)
--- NOTE | 2023-11-11 12:26 | PC.NURSE ---
pt gone to ct
[2023-11-11 12:28] LABS: Bacteria,Urine 1+ /lpf; RBC,Urine Occasional #/hpf (0-3); Squamous Epithelial Cell,Urine Occasional #/hpf (0-5)
[2023-11-11] MEDS: 0.9 % SODIUM CHLORIDE 50 ML VIAL IV (12:38)
[2023-11-11] MEDS: IOPAMIDOL-370 (76%);100ML BOTTLE 70 ML IV (12:38)
[2023-11-11] MEDS: LABETALOL 20MG/4ML SYRINGE 10 MG IV (13:15)
--- NOTE | 2023-11-11 13:16 | PC.NURSE ---
pt took home dose losartan 50mg, ok per MD
== END 2023-11-11 15:06 | disposition home or self-care (01) ==
PROVIDERS: Emergency Provider Emergency Medicine; PCP Internal Medicine
DX: R42 Dizziness and giddiness (principal); I10 Essential (primary) hypertension; I69.354 Hemiplegia and hemiparesis following cerebral infarction affecting left non-dominant side; I77.810 Thoracic aortic ectasia
CPT/HCPCS: 71045; 71275; 80053; 81001; 83880; 84484; 85025; 87086; 93005; 96374; 99285; Q9967

== ENCOUNTER 2024-05-24 13:00 | Outpatient (RCR) | payer MEDICARE, SELFPAY ==
--- NOTE | 2024-04-19 13:51 | HMH.PTOPEV ---
PT Outpatient Evaluation Rehab PT Outpatient Evaluation Start: 04/19/24 12:56 Freq: Status: Active Protocol: Document 04/19/24 13:40 JOSE J (Rec: 04/19/24 13:51 JOSE J [id number]) E-signed By Dangelo Rodriguez, PT Outpatient Therapy Subjective History Subjective History Pt reports h/o chronic left ankle stiffness since left sided CVA ~3 1/2 wks ago. Pt reports left ankle passive mobility has improved over the last 3 months following ~4 months of hyperbaric O2 chamber treatments. Pt reports no left ankle pain, able to ambulate at home w/RW for 1- 2minutes, despite limited left ankle and knee ROM and tone. New diagnosis of cancer in past 12 No months? Chief Complaint Spasms,Stiff Symptoms Relieved By Activity Current Functional Limitations Standing,Walking Ankle/Foot Eval Palpation Tenderness left Ankle/Foot Palpation Overall Comment 0/4 gloablly left foot, ankle ROM Ankle/Foot Dorsiflexion w/Knee Flexed +25 Active Range of Motion (degrees) Ankle/Foot Dorsiflexion W/Knee Flexed +5 Passive Range Motion (degrees) Ankle/Foot Plantar Flexion Active Range 25-50 of Motion (degrees) Ankle/Foot Plantar Flexion Passive Range 5-50 of Motion (degrees) Ankle/Foot Eversion Active Range of +35 Motion (degrees) Ankle/Foot Eversion Passive Range of 0 Motion (degrees) Ankle/Foot Inversion Active Range of 35-45 Motion (degrees) Ankle/Foot Inversion Passive Range of 0-45 Motion (degrees) MMT Ankle Dorsiflexion Strength Grade 1 Trace Ankle Plantarflexion Strength Grade 2- Poor- Foot Eversion Strength Grade 1 Trace Foot Inversion Strength Grade 2- Poor- Outpatient Therapy Assessment Impairments Problems/Impairmments Impaired Range of Motion, Impaired Strength,Impaired Walking,Impaired Standing, Subjective C/O Pain,Impaired Self Care/Self Management Prognosis Rehab Potential Fair Clinical Impression Consistent with Diagnosis Yes Short Term Goals Number of Weeks 4 Increase Range of Motion Yes: 35-50% of WFL PROM left ankle Increase Strength Yes: 2/5 left ankle Increase Ability to Walk Yes: 5min Increase Ability to Stand Yes: 5min Patient to be Ind w/ HEP Yes Patient to be Ind w/ Advanced HEP Yes Outpatient Therapy Plan of Care Treatment Plan May Include Therapeutic Exercise Including Home Yes Exercise Program Manual Therapy Techniques Yes Neuromuscular Re-education Yes Therapeutic Activities to Return to Yes Previous Functional/Work Level Gait Training Yes ADL/Self Care Education Yes Dry Needling Yes Thermal Modalities Yes Electrical Stimulation Yes Ultrasound/Phonophoresis Yes Iontophoresis Yes Orthotics/Bracing/Splinting Yes Eval/Re-Eval Yes Frequency Times per week 1-2 Duration Number of Weeks 4-6 Addendums This patient is a candidate for social No or vocational rehab? Patient/Guardian verbally acknowledges Yes understanding of treatment program and consents to further treatment? Patient/Guardian verbally acknowledges Yes understanding of diagnosis, prognosis and goals for treatment? Eval Complexity PT Charges 21113 - High Complexity Shoulder/Elbow Eval Shoulder Objective Measurements Elbow Objective Measurements PHYSICIAN CERTIFICATION: I certify the specified therapy services for Jorge King are required, authorized, and reviewed every 30 days.
--- NOTE | 2024-05-19 13:51 | HMH.RHREAS ---
Rehab Reassessment Rehab OP Re-assessment Start: 04/19/24 12:56 Freq: Status: Active Protocol: Document 05/19/24 13:43 JOSE J (Rec: 05/19/24 13:50 JOSE J [id number]) E-signed By Dangelo Rodriguez, PT Rehab Re-assessment Subjective Subjective Pt reports no pain in left LE/ foot/ankle this pm on VAS, and 'I think it looks better since we started and with doing the exercises at home.' Objective Objective Notes PROM: LEFT ANKLE DF +3, PF 3- 55, 0-30, EVR 0-9 MMT: LEFT ANKLE DF 1/5, PF 1/5 , EVR 0/5, INV 0/5 TTP: LEFT DISTAL FIBULAR HEAD 0-4 Assessment Progress Assessment Slower Than Expected Assessment Notes SIGNIFICANT PROGRESSION W/LEFT ANKLE PROM, OTHERWISE NO CHANGES IN STRENGTH OR TTP Patient goals met STG'S 2/6 Goals Not Met STG'S 4/6 Plan Plan Pt to continue w/skilled P.T. to make further improvements in ROM, strength, and TTP to allow for optimal function. Also, we are still awaiting from referring PCP office or [facility] George for possible (K) AFO fabrication for LLE. Frequency of Therapy 1-2x/wk Duration of therapy 2-4wks Time and Billing Re-Eval Time 11 Re-Eval Billing Units 0 PHYSICIAN CERTIFICATION: I certify the specified therapy services for Jorge King are required, authorized, and reviewed every 30 days.
== END 2024-05-24 23:59 | disposition home or self-care (01) ==
LOC: PT 13:00
PROVIDERS: Visit Provider Internal Medicine
DX: M21.372 Foot drop, left foot (principal); M25.572 Pain in left ankle and joints of left foot
CPT/HCPCS: 97014; 97140; 97163; 97164; G0283

== ENCOUNTER 2024-05-29 10:44 | Emergency (ER) | payer MEDICARE, SELFPAY ==
[2024-05-29 10:38] VITALS: BP 212/112; PULSE 106; RESP 18; TEMP 36.6; O2SAT 96; BMI 27.1
[2024-05-29 10:48] LABS: Microscopic, Urine URINE MICROSCOPIC (MICROSCOPIC)
[2024-05-29 10:49] LABS: Appearance,Urine SL CLOUDY (Clear); Bilirubin,Urine Negative (Negative); Blood, Urine 2+ (Negative); Color,Urine YELLOW (Yellow); Glucose,Urine (UA) Negative (Negative); Ketones,Urine Negative (Negative); Leukocyte Esterase,Urine 2+ (Negative); Nitrate,Urine Negative (Negative); Protein,Urine 1+ (Negative); Specific Gravity, Urine 1.025 (1.005-1.030); Urobilinogen,Urine 0.2 EU/dl (0.2)
[2024-05-29 11:05] LABS: Bacteria,Urine 1+ /lpf
--- NOTE | 2024-05-29 11:11 | CT_ITS ---
PROCEDURE INFORMATION: Exam: CTA Chest With Contrast Exam date and time: 05/29/2024 12:30 PM Age: 83 years old Clinical indication: Dyspnea; Additional info: Sirs +, janeway lesions, tachycardic TECHNIQUE: Imaging protocol: Computed tomographic angiography of the chest with contrast. Exam focused on the arteries. 3D rendering (Not supervised by radiologist): MIP and/or 3D reconstructed images were created by the technologist. Radiation optimization: All CT scans at this facility use at least one of these dose optimization techniques: automated exposure control; mA and/or kV adjustment per patient size (includes targeted exams where dose is matched to clinical indication); or iterative reconstruction. Contrast material: ISOVUE; Contrast volume: 70 ml; Contrast route: INTRAVENOUS (IV); COMPARISON: CT ANGIO CHEST PE PROTOCOL 11/11/2023 12:27 PM FINDINGS: Pulmonary arteries: Normal. No pulmonary emboli. Aorta: Unremarkable. No aortic aneurysm. No aortic dissection. Lungs: Calcified granuloma right middle lobe. Bibasilar atelectasis versus parenchymal scarring.Thoracic spondylosis with multilevel disc degeneration. Pleural spaces: Unremarkable. No pneumothorax. No pleural effusion. Heart: Unremarkable. No cardiomegaly. No pericardial effusion. Coronary arteries: Coronary artery calcification versus bypass Lymph nodes: Calcified mediastinal and hilar lymph nodes Liver: Decreased density throughout the liver compatible with hepatic steatosis. Bones/joints: Sternotomy Soft tissues: Unremarkable. IMPRESSION: 1. No evidence of acute abnormality. 2. Clinically correlate if appropriate, follow-up with PET-CT imaging for further evaluation
--- NOTE | 2024-05-29 11:11 | CT_ITS ---
PROCEDURE INFORMATION: Exam: CT Abdomen And Pelvis With Contrast Exam date and time: 05/29/2024 12:30 PM Age: 83 years old Clinical indication: Abdominal pain; Generalized; Additional info: Abd pain, inability to urinate, sirs + TECHNIQUE: Imaging protocol: Computed tomography of the abdomen and pelvis with contrast. Radiation optimization: All CT scans at this facility use at least one of these dose optimization techniques: automated exposure control; mA and/or kV adjustment per patient size (includes targeted exams where dose is matched to clinical indication); or iterative reconstruction. Contrast material: ISOVUE; Contrast volume: 70 ml; Contrast route: IV; COMPARISON: CT ABDOMEN PELVIS WO CON 04/29/2023 1:19 PM FINDINGS: Lungs: Bibasilar atelectasis versus parenchymal scarring. Diaphragm: Small hiatal hernia Liver: Decreased density throughout the liver compatible with hepatic steatosis. Persistent hypoattenuating focus within the right lobe of the liver findings may correspond to a slowly enhancing hemangioma. Gallbladder and biliary ducts: Cholecystectomy Pancreas: Pancreas unremarkable Spleen: The spleen is unremarkable. Adrenal glands: Adrenal glands unremarkable. Kidneys and ureters: Bilateral renal cysts Stomach and bowel: Colonic diverticulosis. No evidence of diverticulitis. Mild-moderate stool burden. Demonstration of focal stool ball in the rectum with associated mild dilatation of the rectum to 7 cm. Appendix: No evidence of appendicitis. Intraperitoneal space: Unremarkable. No free air. No significant fluid collection. Vasculature: Scattered regions of atherosclerotic vascular calcification within the abdominal aorta and common iliac arteries. Lymph nodes: Unremarkable. No enlarged lymph nodes. Urinary bladder: Mild thickening of the bladder wall may reflect incomplete distension. Could not exclude changes of cystitis. Reproductive: Markedly enlarged prostate gland demonstrating heterogeneous enhancement. Bones/joints: Unremarkable. No acute fracture. Soft tissues: Fat filled inguinal hernias. IMPRESSION: 1. Mild thickening of the bladder wall may reflect incomplete distension. Could not exclude changes of cystitis. 2. Markedly enlarged prostate gland demonstrating heterogeneous enhancement. Correlate with PSA levels. 3. Please see above report for discussion of nonacute findings. COMMENTS: Consistent with the [employer]'s Incidental Findings Committee white paper (J Am Collins Radiol 2018): Any incidental renal lesion less than 1 cm or classified as too small to characterize, or any incidental cystic renal lesion characterized as simple-appearing, is likely benign. No follow-up imaging is recommended for these lesions per consensus recommendations based on imaging criteria.
[2024-05-29 11:26] LABS: Alanine Aminotransferase 28 U/L (12-78); Albumin Level 3.9 g/dl (3.5-5.0); Albumin/Globulin Ratio 1.1 (1.1-1.8); Alkaline Phosphatase 55 U/L (38-126); Aspartate Amino Transferase 34 U/L (17-59); Bilirubin,Total 1.6 mg/dl (0.2-1.3); Blood Urea Nitrogen 19 mg/dl (9-20); Calcium 8.9 mg/dl (8.4-10.2); Carbon Dioxide 32 mmol/L (22.0-30.0); Chloride 98 mmol/L (98-107); Creatinine Clearance Estimated 71 mL/min (50-200); Estimated Glomerular Filt Rate 92 ml/min (>60); GFR (African American) 111 ML/MIN (>60); Globulin 3.7 g/dL (1.3-3.2); Glucose 116 mg/dl (74-100); Lactic Acid 1.4 mmol/L (0.7-2.1); Lipase 32 U/L (23-300); Sodium 133 mmol/L (136-145); Total Protein,Serum 7.6 g/dl (6.3-8.2)
[2024-05-29 11:31] LABS: C-Reactive Protein 173.9 mg/L (0-4)
[2024-05-29 11:38] VITALS: BP 159/93; PULSE 96; O2SAT 97
--- NOTE | 2024-05-29 11:43 | ED_ITS ---
Discharge Plan Disposition Patient Disposition: Home, Self-Care Condition: Good Prescriptions Prescriptions: New ciprofloxacin HCl 500 mg tablet 500 mg PO BID Qty: 20 0RF No Action aspirin [Adult Aspirin Regimen] 81 mg tablet,delayed release (DR/EC) 81 mg PO DAILY atorvastatin 20 mg tablet 20 mg PO DAILY tamsulosin 0.4 mg capsule 0.4 mg PO HS ropinirole 4 mg tablet PO HS Patient Comments: TAKE 1 TABLET BY MOUTH AT BEDTIME levothyroxine [Synthroid] 50 mcg tablet 50 mcg PO DAILY dutasteride [Avodart] 0.5 mg capsule 0.5 mg PO DAILY losartan 100 mg tablet See Rx Instructions .ROUTE .COMPLEX Qty: 90 1RF Dose Instruction: Take 1 tablet by mouth once daily Rx Instructions: Take 1 tablet by mouth once daily carvedilol 3.125 mg tablet 3.125 mg PO BID Qty: 60 2RF Rx Instructions: must administer with a meal/food Referrals Follow up/Referrals: Clifford Horner MD [Primary Care Provider] - See instructions Vinayak Sabillon MD [Staff Physician] - See instructions Activity Restrictions/Add. Instructions Additional Instructions/Restrictions: You were evaluated in the emergency department today. Please follow-up closely with your primary care provider as well as with urology. order to delivery supervisor your prescription for antibiotics and take the full course as prescribed. Make sure you stay hydrated. Return to the emergency department right away for new or worsening symptoms such as fevers greater than 100.4 ?F, intractable nausea and vomiting, or other concerns Clinical Impressions Clinical Impression: UTI (urinary tract infection) Qualifiers: Urinary tract infection type: acute cystitis Hematuria presence: with hematuria Qualified Code(s): N30.01 - Acute cystitis with hematuria Instructions Patient Instructions: DI for Urinary Tract Infection (UTI) Print Language Print Language: Malaysian Discharge ED Provider: Feli Freeman General Adult HPI General Chief complaint: Urogenital-Male Stated complaint: WEAKNESS Time Seen by Provider: 05/29/24 10:49 Mode of Arrival: EMS Source of Information: Patient and EMS Limitations: No Limitations Description of Symptoms (Recalled from ER Triage Doc. by RN): PT FROM HOME VIA EMS FOR WEAKNESS, NAUSEA, DECREASED URINARY OUTPUT AND PAINFUL URINATION. 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 He arrives by EMS from home, where he lives with his . He states that has been feeling bad for several days. He also notes that he had red spots pop up on his hands, which she notes are not painful or itchy. He denies experiencing any like this in the past. He also denies any history of urinary tract infection or need for Michele catheter placement in the past. No other concerns such as fevers, chills, chest pain, shortness of breath, vomiting, changes in bowel movements, or swelling. He denies any history of bloodstream infection or endocarditis. Related Data Home Medications ?Medication ?Instructions ?Recorded ?Confirmed levothyroxine 50 mcg tablet 50 mcg PO DAILY hypothyroidism 12/01/17 05/19/24 (Synthroid) aspirin 81 mg tablet,delayed 81 mg PO DAILY Blood thinner 11/01/20 05/19/24 release (Adult Aspirin Regimen) atorvastatin 20 mg tablet 20 mg PO DAILY Cholesterol 11/01/20 05/19/24 tamsulosin 0.4 mg capsule 0.4 mg PO HS BPH 11/01/20 05/19/24 dutasteride 0.5 mg capsule 0.5 mg PO DAILY stool softner 02/17/24 05/19/24 (Avodart) ropinirole 4 mg tablet mg PO HS 02/17/24 05/19/24 Previous Rx's ?Medication ?Instructions ?Recorded losartan 100 mg tablet See Rx Instructions .Route 05/20/24 .COMPLEX #90 tabs carvedilol 3.125 mg tablet 3.125 mg PO BID #60 tabs 05/26/24 ciprofloxacin HCl 500 mg tablet 500 mg PO BID #20 tabs 05/29/24 Allergies Allergy/AdvReac Type Severity Reaction Status Date / Time No Known Allergies Allergy Verified 05/19/24 14:38 [facility] Disclaimer: The information contained in this section may have been updated after the patient was seen, as this information can be updated by other users. Social History Smoking Status: Never smoker second hand exposure: No alcohol intake: never substance use type: denies use current occupational status: retired Travel in the last 8 weeks: None Other Medical History Have you received the Flu Vaccine for this season: Yes Have you received the Pneumonia Vaccine: No ROS Obtained: Yes All systems reviewed & no additional complaints except as documented Physical Exam General General appearance: alert, in no apparent distress and obese Head Head exam: atraumatic and normocephalic Eye Eye exam: Present normal appearance, PERRL and EOMI ENT ENT exam: Present normal exam, normal oropharynx, mucous membranes moist and normal external ear exam Neck Neck exam: Present normal inspection, full ROM and trachea midline; Absent tenderness Chest Chest inspection: Present normal inspection and symmetric chest wall rise; Absent tenderness Respiratory Respiratory exam: Present normal lung sounds bilaterally; Absent respiratory distress, wheezes, stridor or accessory muscle use Cardiovascular Cardiovascular exam: Present regular rate and normal rhythm Abdominal Exam Abdominal exam: Present soft, distention and tenderness; Absent guarding, rebound or rigidity Extremities Exam Extremities exam: Present normal inspection, full ROM and normal capillary refill; Absent tenderness or edema Back Exam Back exam: Present normal inspection and full ROM; Absent tenderness Neurological Exam Neurological exam: Present alert, oriented X3 and CN II-XII intact; Absent motor sensory deficit Psychiatric Psychiatric exam: Present normal affect and normal mood Skin Skin exam: Present warm, dry and rash (Nontender erythematous macules to the bilateral hands with no bullae or sloughing) Medical Decision Making Medical Records Medical records reviewed: Yes I reviewed the patient's medical records. Screening: Per USPSTF and CDC recommendations, given the prevalence of disease in our region, it is our hospital?s policy to screen for HIV and viral Hepatitis for all patients aged 18 and over and those with ongoing risk factors. Raúl Inquiry Pt receiving controlled substance: No Vital Signs: 05/29/24 10:38 05/29/24 11:38 05/29/24 12:01 Temperature 97.9 F Temperature Source Oral Pulse Rate 96 H 100 H Pulse Rate [Radial] 106 H Respiratory Rate 18 Blood Pressure 159/93 H 123/80 Blood Pressure [Right Arm] 212/112 H Blood Pressure Mean 115 94 Blood Pressure Mean [Right Arm] 145 Blood Pressure Source [Right Arm] Automatic Cuff Blood Pressure Position [Right Arm] Sitting 02 Sat by Pulse Oximetry 96 97 95 Oxygen Delivery Method Room Air Room Air Room Air 05/29/24 14:54 Temperature 98.9 F Temperature Source Pulse Rate 81 Pulse Rate [Radial] Respiratory Rate 18 Blood Pressure 167/93 H Blood Pressure [Right Arm] Blood Pressure Mean Blood Pressure Mean [Right Arm] Blood Pressure Source [Right Arm] Blood Pressure Position [Right Arm] 02 Sat by Pulse Oximetry Oxygen Delivery Method Lab Data Lab results reviewed: Yes I reviewed the patient's lab results. Lab Results 05/29/24 10:41: Urine Color Yellow, Urine Appearance Sl cloudy, Urine pH 6.0, Ur Specific [place] 1.025, Urine Protein 1+ A, Urine Glucose (UA) Negative, Urine Ketones Negative, Urine Blood 2+ A, Urine Nitrate Negative, Urine Bilirubin Negative, Urine Urobilinogen 0.2, Ur Leukocyte Esterase 2+ A, Urine RBC 5-10, Urine WBC 10-20, Ur Squamous Epith Cells 5-10, Urine Bacteria 1+ 05/29/24 10:55: PT 11.2, INR 1.00, APTT 23.9, Sodium 133 L, Potassium 4.0, Chloride 98, Carbon Dioxide 32 H, Anion Gap 7.0, BUN 19, Creatinine 0.80, Estimated Creat Clear 71, Estimated GFR 92, Est GFR ( Amer) 111, Glucose 116 H, Lactate 1.4, Calcium 8.9, Total Bilirubin 1.6 H, AST 34, ALT 28, Alkaline Phosphatase 55, Troponin I < 0.01, C-Reactive Protein 173.9 H, Total Protein 7.6, Albumin 3.9, Globulin 3.7 H, Albumin/Globulin Ratio 1.1, Lipase 32, Procalcitonin 0.079, TSH 3.06, Thyroxine (T4) 7.4 05/29/24 11:30: WBC 11.9 H, RBC 4.74, Hgb 13.8 L, Hct 41.4 L, MCV 87.2, MCH 29.1, MCHC 33.4, RDW 13.9, Plt Count 284, MPV 7.6, Neut % (Auto) 79.4, Lymph % (Auto) 11.6, [place] % (Auto) 8.2, Eos % (Auto) 0.3, Baso % (Auto) 0.6, Neut # (Auto) 9.4 H, Lymph # (Auto) 1.4, [place] # (Auto) 1.0, Eos # (Auto) 0.0, Baso # (Auto) 0.1, HIV 1&2 Antibody Rapid Nonreactive 05/29/24 11:30 05/29/24 10:55 Orders (Tests/Meds): ED MEDICATIONS Discontinued Medications Generic Name Dose Route Start Last Admin Trade Name Freq PRN Reason Stop Dose Admin Ceftriaxone Sodium 2 gm/ 100 mls @ 200 mls/hr 05/29/24 13:31 05/29/24 13:53 Sodium Chloride IV 05/29/24 14:00 200 mls/hr ONCE ONE Administration Sodium Chloride 1,000 mls @ 999 mls/hr 05/29/24 13:31 05/29/24 13:54 Sod Chlor 0.9% 1000ml Bag IV 05/29/24 14:31 999 mls/hr .Q1H1M ONE Administration Iopamidol 70 ml 05/29/24 12:28 05/29/24 12:30 Iopamidol-370 (76%);100ml Bottle IV 05/29/24 12:29 70 ml ONCE ONE Administration Sodium Chloride 50 ml 05/29/24 12:28 05/29/24 12:30 0.9 % Sodium Chloride 50 Ml Vial IV 05/29/24 12:29 50 ml ONCE ONE Administration Sodium Chloride 10 ml 05/29/24 12:28 05/29/24 12:30 Sodium Chloride 0.9% 10ml Syr (Rad Only) IV 06/28/24 12:27 10 ml NEEDED PRN Administration Maintain IV Site ORDERS Category Date Time Status CT abdomen pelvis w con Stat Cat Scan 05/29/24 11:[address] angio chest PE protocol Stat Cat Scan 05/29/24 11:11 Completed Activated Partial Thrombo Time Stat Lab 05/29/24 10:55 Completed CBC w/Auto Diff [Complete Blood Count Auto Diff] Stat Lab 05/29/24 11:30 Completed CMP [Comprehensive Metabolic Panel] Stat Lab 05/29/24 10:55 Completed CRP [C-Reactive Protein] Stat Lab 05/29/24 10:55 Completed HIV (1&2) Antibody Rapid Stat Lab 05/29/24 11:30 Completed Hep C Ab with Reflex to RNA Stat Lab 05/29/24 11:30 Received Lactic Acid Stat Lab 05/29/24 10:55 Completed Lipase Stat Lab 05/29/24 10:55 Completed Procalcitonin Stat Lab 05/29/24 10:55 Completed Prothrombin Time INR Stat Lab 05/29/24 10:55 Completed T4 (Thyroxine) Stat Lab 05/29/24 10:55 Completed TSH [Thyroid Stimulating Hormone] Stat Lab 05/29/24 10:55 Completed Trop I [Troponin I] Stat Lab 05/29/24 10:55 Completed UA [Urinalysis and Microscopic] Stat Lab 05/29/24 10:41 Completed Blood Culture Stat Micro 05/29/24 11:30 Received Urine Culture Stat Micro 05/29/24 10:41 Received ECG Data Tracing #1: I reviewed this ECG and interpreted as documented below: Sinus tachycardia with a ventricular rate of [address] changes concerning for ischemia. Normal intervals. ECG initial impression date: 05/29/24 ECG initial impression time: 12:18 Medical Decision Narrative: In summary, this patient is a 83-year-old male presenting to the Emergency Department for evaluation of urinary symptoms as well as red spots on his hands. Differential diagnoses considered include but are not limited to cystitis, pyelonephritis, sepsis, endocarditis, YASMIN, acute urinary retention, BPH, prostatitis. Ruling out the most morbid conditions drove assessment. It should be noted patient's history includes CAD status post CABG, aortic valve replacement, hypertension which may or may not be at goal therapy. This complicates all aspects of care by increasing patient's risk for morbidity. On exam, the patient is lying in bed in no acute distress. He is hypertensive and mildly tachycardic on cardiac telemetry. He has erythematous macules on his hands as well as mild abdominal distention and tenderness. No rebound or guarding. Considering the red spots on his hands, I considered a diagnosis of endocarditis, but he is afebrile and nontoxic-appearing. He is very mildly tachycardic, however, with a history of aortic valve replacement. Workup included broad lab evaluation to evaluate for infectious and metabolic causes of his symptoms including inflammatory markers, blood cultures, and lactic as well as CTA PE protocol and CT abdomen pelvis with IV contrast. Sepsis bolus not administered, as the patient has history of cardiac dysfunction and I feel it could be potentially detrimental to him. I independently interpreted CT scans prior to the radiologist read and noted concernsfor cystitis but no other acutely concerning abnormalities. Please see their read for final interpretation. Labs were obtained that demonstrated very mild leukocytosis and elevated CRP. Urinalysis is concerning for infection. He also has very mild hyponatremia. No significant YASMIN, no significant elevation in procalcitonin. Blood cultures were sent and are pending. On reassessment of the patient remains afebrile and vitals are normal on cardiac telemetry. Tachycardia improved with IV fluid resuscitation. I again considered endocarditis given the lesions on his hands, however he is afebrile with very minimal leukocytosis, no significant elevation in procalcitonin, no septic emboli or other concern noted on CT imaging. Nonetheless, I did send blood cultures which are pending and we will certainly call the patient back if they end up coming back positive. He was given a dose of IV Rocephin here to treat urinary tract infection, and ultimately I feel that given he is improved and has reassuring workup otherwise, he is appropriate for discharge home. I gave him prescription for ciprofloxacin to take at home, instructions for close outpatient follow-up, and strict return precautions. He was discharged after all questions were answered. Critical Care Critical Care Time Critical Care Time: No
[2024-05-29 11:45] LABS: Procalcitonin 0.079 ng/mL (0.0-2.0); T4 (Thyroxine) 7.4 ug/dl (5.53-11.0); Troponin I < 0.01 ng/ml (0.00-0.034)
[2024-05-29 11:46] LABS: Basophils # 0.1 K/mm3 (0-0.2); Basophils % 0.6 % (0.1-2.0); Eosinophils % 0.3 % (0.1-12.0); Hematocrit 41.4 % (42.0-52.0); Hemoglobin 13.8 g/dL (14.1-18.0); Lymphocytes # 1.4 K/mm3 (0.7-4.5); Lymphocytes % 11.6 % (10-50); Mean Corpuscular HGB Conc 33.4 g/dL (31.8-35.4); Mean Corpuscular Hemoglobin 29.1 pg (27.0-31.2); Mean Corpuscular Volume 87.2 fl (80-94); Mean Platelet Volume 7.6 fl (7.4-10.4); Monocytes % 8.2 % (1.7-9.3); Neutrophils # 9.4 K/mm3 (1.8-7.8); Neutrophils % 79.4 % (37.0-80.0); Platelet Count 284 K/mm3 (142-424); Red Blood Count 4.74 M/mm3 (4.60-6.20); Red Cell Distribution Width 13.9 % (11.5-17.5); White Blood Count 11.9 K/mm3 (4.8-10.8)
[2024-05-29 11:50] LABS: Activated Partial Thrombo Time 23.9 seconds (22.8-30.6); Prothrombin Time 11.2 seconds (10.1-12.5)
[2024-05-29 11:59] LABS: Thyroid Stimulating Hormone 3.06 uIU/mL (0.465-4.68)
[2024-05-29 12:01] VITALS: BP 123/80; PULSE 100; O2SAT 95
--- NOTE | 2024-05-29 12:17 | ECG_ITS ---
APPROVED REPORT Exam: Resting ECG HR:127 bpm ECG Measurements Heart Rate 127 AXES OR 148 P 38 QRSd 79 QRS -41 QT 307 T 57 QTc 382 Conclusion SINUS TACHYCARDIA POSSIBLE RIGHT VENTRICULAR CONDUCTION DELAY [RSR (QR) IN V1/V2] INFERIOR MYOCARDIAL INFARCTION , PROBABLY OLD [40+ ms Q WAVE AND/OR ST/T ABNORMALITY IN II/aVF] Electronically signed by : JINNY BACA, 05/29/2024 16:29:34
--- NOTE | 2024-05-29 12:28 | PC.NURSE ---
PT TO CT
[2024-05-29] MEDS: 0.9 % SODIUM CHLORIDE 50 ML VIAL IV (12:30)
[2024-05-29] MEDS: SODIUM CHLORIDE 0.9% 10ML SYR (RAD ONLY) 10 ML IV (12:30)
[2024-05-29] MEDS: IOPAMIDOL-370 (76%);100ML BOTTLE 70 ML IV (12:30)
--- NOTE | 2024-05-29 12:38 | PC.NURSE ---
PT RETURNED FROM CT
[2024-05-29] MEDS: CEFTRIAXONE SODIUM 2 GM in 0.9 % SODIUM CHLORIDE 100 ML IV (13:53)
[2024-05-29] MEDS: 0.9 % SODIUM CHLORIDE 1000ML 1,000 ML 999 ML IV (13:54)
--- NOTE | 2024-05-29 13:55 | PC.NURSE ---
SPOKE WITH FOR DISCHARGE PLAN, WILL ATTEMPT TO REACH NEIGHBOR FOR RIDE
[2024-05-29 14:36] LABS: HIV (1&2) Antibody Rapid NONREACTIVE (NONREACTIVE)
[2024-05-29 14:54] VITALS: BP 167/93; PULSE 81; RESP 18; TEMP 37.2; O2SAT 94
[2024-05-31 05:15] LABS: HCV Ab Non Reactive (Non Reactive)
== END 2024-05-29 14:57 | disposition home or self-care (01) ==
PROVIDERS: Emergency Provider Emergency Medicine; PCP Internal Medicine
DX: N30.01 Acute cystitis with hematuria (principal); R53.1 Weakness; R11.0 Nausea; R30.9 Painful micturition, unspecified; R33.9 Retention of urine, unspecified; R30.0 Dysuria; R14.0 Abdominal distension (gaseous); R21 Rash and other nonspecific skin eruption
CPT/HCPCS: 71275; 74177; 80053; 81001; 83605; 83690; 84145; 84436; 84443; 84484; 85025; 85610; 85730; 86140; 86803; 87040; 87086; 87389; 93005; 96360; 96361; 96374; 99285; J0696; J7030; Q9967

== ENCOUNTER 2024-06-23 17:09 | Outpatient (CLI) | payer MEDICARE, SELFPAY ==
[2024-06-23 16:13] LABS: Basophils # 0.1 K/mm3 (0-0.2); Basophils % 0.8 % (0.1-2.0); Eosinophils # 0.4 K/mm3 (0.0-0.4); Eosinophils % 5.6 % (0.1-12.0); Hematocrit 43.3 % (42.0-52.0); Hemoglobin 14.1 g/dL (14.1-18.0); Lymphocytes % 27.3 % (10-50); Mean Corpuscular HGB Conc 32.6 g/dL (31.8-35.4); Mean Corpuscular Hemoglobin 29.5 pg (27.0-31.2); Mean Corpuscular Volume 90.4 fl (80-94); Monocytes # 0.6 K/mm3 (0.1-1.0); Monocytes % 8.7 % (1.7-9.3); Neutrophils # 4.1 K/mm3 (1.8-7.8); Neutrophils % 57.6 % (37.0-80.0); Platelet Count 237 K/mm3 (142-424); Red Blood Count 4.79 M/mm3 (4.60-6.20); Red Cell Distribution Width 14.5 % (11.5-17.5); White Blood Count 7.1 K/mm3 (4.8-10.8)
[2024-06-23 18:10] LABS: Alanine Aminotransferase 19 U/L (12-78); Albumin Level 3.7 g/dl (3.5-5.0); Albumin/Globulin Ratio 1.4 (1.1-1.8); Alkaline Phosphatase 65 U/L (38-126); Anion Gap 10.3 mEq/L (5-15); Aspartate Amino Transferase 24 U/L (17-59); Bilirubin,Total 1.4 mg/dl (0.2-1.3); Blood Urea Nitrogen 17 mg/dl (9-20); Calcium 8.4 mg/dl (8.4-10.2); Carbon Dioxide 31 mmol/L (22.0-30.0); Chloride 101 mmol/L (98-107); Chol/HDL Ratio 2.9 (1-3.5); Cholesterol 124 mg/dl (140-200); Estimated Glomerular Filt Rate 92 ml/min (>60); GFR (African American) 111 ML/MIN (>60); Globulin 2.7 g/dL (1.3-3.2); Glucose 78 mg/dl (74-100); HDL Cholesterol 43 mg/dl (40-60); Potassium 4.3 mmoL/L (3.5-5.1); Sodium 138 mmol/L (136-145); Total Protein,Serum 6.4 g/dl (6.3-8.2); Triglycerides 96 mg/dl (30-150); VLDL Cholesterol 19 mg/dL (0-40)
[2024-06-23 18:21] LABS: Direct LDL Cholesterol 64.57 mg/dL (100-129)
[2024-06-23 18:40] LABS: Prostate Specific Ag Screen 6.3 ng/ml (0.0-4.0); Thyroid Stimulating Hormone 5.28 uIU/mL (0.465-4.68)
== END 2024-06-23 23:59 | disposition home or self-care (01) ==
LOC: LAB.DROPOF 17:09
PROVIDERS: PCP Internal Medicine; Visit Provider Internal Medicine
DX: E78.5 Hyperlipidemia, unspecified (principal); I10 Essential (primary) hypertension; I25.10 Atherosclerotic heart disease of native coronary artery without angina pectoris; Z12.5 Encounter for screening for malignant neoplasm of prostate; E03.9 Hypothyroidism, unspecified
CPT/HCPCS: 80053; 80061; 84443; 85025; G0103

== ENCOUNTER 2024-09-26 17:20 | Outpatient (CLI) | payer MEDICARE, SELFPAY ==
[2024-09-26 18:10] LABS: Anion Gap 12.4 mEq/L (5-15); Blood Urea Nitrogen 21 mg/dl (9-20); Calcium 8.9 mg/dl (8.4-10.2); Carbon Dioxide 31 mmol/L (22.0-30.0); Chloride 100 mmol/L (98-107); Estimated Glomerular Filt Rate 80 ml/min (>60); GFR (African American) 97 ML/MIN (>60); Glucose 80 mg/dl (74-100); Potassium 4.4 mmoL/L (3.5-5.1); Sodium 139 mmol/L (136-145)
== END 2024-09-26 23:59 | disposition home or self-care (01) ==
LOC: LAB.DROPOF 17:21
PROVIDERS: PCP Internal Medicine; Visit Provider Internal Medicine
DX: I10 Essential (primary) hypertension (principal)
CPT/HCPCS: 80048

== ENCOUNTER 2024-12-21 15:08 | Outpatient (RCR) | payer MEDICARE, SELFPAY ==
--- NOTE | 2024-12-21 17:17 | HMH.PTOPEV ---
PT Outpatient Evaluation Rehab PT Outpatient Evaluation Start: 12/21/24 15:24 Freq: Status: Active Protocol: Document 12/21/24 15:24 LEXY (Rec: 12/21/24 17:17 PHOARIA [id number]) E-signed By Saud Trerazas, PT Outpatient Therapy Subjective History Subjective History Mr. King is an 84 year-old man who presents with L sided weakness following a stroke ~4 -5 years ago from an open heart surgery complication. Pt has a PMH of HTN under control with medication, and had cataract surgery a few months ago. He denies any visual changes, loss of sensation, or numbness/ tingling from stroke. He currently lives with his who is his primary contractor buyer, and his son helps as well. He states that he can dress himself and requires some help bathing, cooking, and with transfers from his . He states that he is independent with bed mobility and requires some assist for transfers but tries to stand 15-20x/day. Pt has been in WC since the stroke and states that he can stand up for 6-7 minutes and can take a few steps to transfer but wants to get back to walking. His home has a ramp to enter and is accessible. Pt attended PT at [facility] in 2023, but had to quit because of the winter weather. Pt states he does not have pain, numbness, or tingling, except some pain in his R foot from a corn, but is going to see a DrChristiano in ~2 weeks to look at it. Pt states that his biggest goal is to get back to standing and walking around again. Chief Complaint Weakness Prior Functional Limitations Reaching,Lifting,Housework, Driving,Standing,Squatting, Recreation Activity,Walking, Stairs,Balance Current Functional Limitations Reaching,Lifting,Housework, Driving,Standing,Squatting, Recreation Activity,Walking, Stairs,Balance Hip/Knee Eval Assistive Device Assistive Devices Rolling / Wheeled Walker, Wheelchair MMT left Hip Flexion Strength Grade 4 Good Hip Abduction Strength Grade 5 Normal Hip Adduction Strength Grade 4 Good Knee Extension Strength Grade 4 Good Knee Flexion Strength Grade 4 Good Knee Flexors Muscle Tone Description Moderate Hypertonicity right Hip Flexion Strength Grade 5 Normal Hip Abduction Strength Grade 5 Normal Hip Adduction Strength Grade 4 Good Knee Extension Strength Grade 4 Good Knee Flexion Strength Grade 5 Normal Knee Flexors Muscle Tone Description Rigidity ROM left Knee Extension Passive Range of Motion ( Lacking 39 degrees) Knee Flexion Passive Range of Motion ( 39-115 degrees) Knee ROM Limitations Contracture,Muscle Tone right Hip ROM Limitations Muscle Tone,Contractures Knee Extension Passive Range of Motion ( Lacking 16 degrees) Knee Flexion Passive Range of Motion ( 16-116 degrees) Knee ROM Limitations Contracture,Muscle Tone DTR Rt Patellar 1+ Lt Patellar 1+ Sensation bilateral Comment ~equal bilaterally Ankle/Foot Eval ROM left Ankle/Foot Dorsiflexion W/Knee Flexed Lack 5 Passive Range Motion (degrees) Ankle/Foot Eversion Passive Range of 0 Motion (degrees) Ankle/Foot Inversion Passive Range of 0-44 Motion (degrees) Ankle/Foot ROM Limitations Muscle Tone right Ankle/Foot Dorsiflexion w/Knee Flexed Lack 5 Active Range of Motion (degrees) Ankle/Foot Eversion Passive Range of 0-20 Motion (degrees) Ankle/Foot Inversion Passive Range of 0 Motion (degrees) Ankle/Foot ROM Limitations Soft Tissue Tightness MMT left Ankle Dorsiflexion Strength Grade 2 Poor Ankle Plantarflexion Strength Grade Not Tested right Ankle Dorsiflexion Strength Grade 4 Good Ankle Plantarflexion Strength Grade Not Tested Lower Extremity Functional Index Activities Today, do you or would you have any difficulty at all with: a.Any of your usual work, housework or Extreme difficulty or unable school activities to perform activity b. Your usual hobbies, recreational or Extreme difficulty or unable sporting activities to perform activity c. Getting into or out of the bath Extreme difficulty or unable to perform activity d. Walking between rooms Extreme difficulty or unable to perform activity e. Putting on your shoes or socks Extreme difficulty or unable to perform activity f. Squatting Extreme difficulty or unable to perform activity g. Lifting an object, like a bag of Extreme difficulty or unable groceries from the floor to perform activity h. Performing light activities around Moderate difficulty your home i. Performing heavy activities around Extreme difficulty or unable your home to perform activity j. Getting into or out of a car Extreme difficulty or unable to perform activity k. Walking 2 blocks Extreme difficulty or unable to perform activity l. Walking a mile Extreme difficulty or unable to perform activity m. Going up or down 10 stairs (about 1 Extreme difficulty or unable flight of stairs) to perform activity n. Standing for 1 hour Moderate difficulty o. Sitting for 1 hour No difficulty p. Running on even ground Extreme difficulty or unable to perform activity q. Running on uneven ground Extreme difficulty or unable to perform activity r. Making sharp turns while running fast Extreme difficulty or unable to perform activity s. Hopping Extreme difficulty or unable to perform activity t. Rolling over in bed Moderate difficulty LEFI Score Lower Extremity Functional Index Score 10 Miscellaneous Dx PT Eval Objective Objective Patient has a L knee flexion contracture (lack 39 degrees of extension) and is limited in R knee extension (lack 16 degrees of extension). R ankle PF/INV increased tone, resting position in 44 degrees of ankle INV Significant B/L hip IR/ER musculature tightness and PROM limited to <5 degrees Sit/stand/step transfer ModA x2 Scooting in chair IND Supine/sit transfer Chase Outpatient Therapy Assessment Impairments Problems/Impairmments Impaired Range of Motion, Impaired Strength,Impaired Endurance,Impaired Transfers, Impaired Gait Pattern,Impaired Walking,Impaired Standing, Impaired Driving,Impaired Lifting,Impaired Shower/ Bathing,Impaired Household Care,Impaired Stair Climbing, Impaired Incline Stepping, Impaired Stepping on Uneven Surface,Impaired Bending, Impaired Recreational Activities,Impaired Self Care/ Self Management Prognosis Rehab Potential Good Comment Patient presents with signs/ symptoms consistent with L sided weakness and increased tightness of knee flexors and ankle plantarflexors/invertors from CVA. Patient has B/L knee contractures (lacking 39 of L knee extension and 16 deg of R knee extension), potentially from increased tonicity of knee flexors. Pt's L ankle was resting in 44 degrees of inversion due to PF /INV increased tone, but was able to get to neutral inv/ev with passive stretch. Patient demonstrated good isolated LE strength B/L, but due to knee flexion contractures and increased tone in PF/INV muscles, pt demonstrated poor gait mechanics. Pt demonstrated vaulting onto R LE with excessive hip flexion and knee flexion. Patient will benefit from skilled physical therapy to increase A/PROM and strength throughout BLE to improve gait mechanics and transfer ability to allow pt to walk around the house for his ADLs. Clinical Impression Consistent with Diagnosis Yes Additional details: R29.669 Other symptoms and signs involving the musculoskeletal system M62.58 Muscle wasting and atrophy, not elsewhere classified, other site Short Term Goals Number of Weeks 4 Increase Range of Motion Yes: Increase in 10 degrees of L knee extension PROM from baseline Increase Strength Yes: 3/5 L ankle DF Improve Transfers Yes: Sit/stand/step transfer with Chase Improve LEFI Score Yes: 13 Patient to be Ind w/ Advanced HEP Yes Skilled Nursing Goals Number of Weeks 6 Increase Range of Motion Yes: Increase in 20 degrees of L knee extension PROM from baseline Increase Strength Yes: L ankle DF 4/5 Improve Transfers Yes: Sit/stand/step transfer independently Increase Ability to Walk Yes: Walk 10 feet with Chase Increase Ability to Stand Yes: Stand for 15 minutes with CGA Improve LEFI Score Yes: 20 Patient to be Ind w/ Advanced HEP Yes Outpatient Therapy Plan of Care Treatment Plan May Include Therapeutic Exercise Including Home Yes Exercise Program Manual Therapy Techniques Yes Neuromuscular Re-education Yes Therapeutic Activities to Return to Yes Previous Functional/Work Level Gait Training Yes ADL/Self Care Education Yes Thermal Modalities Yes Electrical Stimulation Yes Ultrasound/Phonophoresis Yes Orthotics/Bracing/Splinting Yes Eval/Re-Eval Yes Frequency Times per week 2-3 Duration Number of Weeks 8 Addendums This patient is a candidate for social No or vocational rehab? Patient/Guardian verbally acknowledges Yes understanding of treatment program and consents to further treatment? Patient/Guardian verbally acknowledges Yes understanding of diagnosis, prognosis and goals for treatment? Eval Complexity PT Charges 50036 - High Complexity Shoulder/Elbow Eval Shoulder Objective Measurements Elbow Objective Measurements PHYSICIAN CERTIFICATION: I certify the specified therapy services for Jorge King are required, authorized, and reviewed every 30 days.
== END 2024-12-21 23:59 | disposition home or self-care (01) ==
LOC: PT 15:08
PROVIDERS: Visit Provider Internal Medicine
DX: M24.575 Contracture, left foot (principal); M62.58 Muscle wasting and atrophy, not elsewhere classified, other site; R29.898 Other symptoms and signs involving the musculoskeletal system
CPT/HCPCS: 97163; 97530

== ENCOUNTER 2025-01-19 14:00 | Outpatient (RCR) | payer MEDICARE, SELFPAY ==
--- NOTE | 2025-01-19 15:46 | HMH.RHREAS ---
Rehab Reassessment Rehab OP Re-assessment Start: 01/03/25 13:02 Freq: Status: Active Protocol: Document 01/19/25 15:32 PHOARIA (Rec: 01/19/25 15:46 PHORNE [id number]) E-signed By Saud Terrazas, PT Rehab Re-assessment Subjective Subjective Pt reports he feels he is slightly stronger and able to stand for longer periods of time. He reports he was unable to attend therapy last week due to lack of transportation. Objective Objective Notes MMT R LE: HIP FLEX 5/5, HIP ABD 4+/5, HIP ADD 5/5, ANKLE DF 4/5 MMT L LE: HIP FLEX 4+/5, HIP ABD 4/5, HIP ADD 4+/5, ANKLE DF 2/5 PROM R knee: 15-116 deg PROM L knee: 25-115 deg Standing: Pt able to stand for ~5 min total with CGA X 1 for statis standing balance. Sit/stand: Pt requires MOD A x 2 for sit/stand transfers at this time. Assessment Progress Assessment Progressing as Expected Assessment Notes Pt has shown some improvement in B LE knee flexion contracture and increased endurance to all standing activity. He has been unable to take steps or attempt gait at this time. B hip MMT strength has improved some , but L ankle ROM and strength have shown little improvement. Skilled therapy services continue to be indicated to improve strength, transfer ability, and endurance to standing activity to further aid improvements in all functional mobility. Patient goals met ST/5 LT/7 Plan Plan Continue per inititial POC. Frequency of Therapy 2 x/wk Duration of therapy 4 wks Time and Billing Re-Eval Time 12 Re-Eval Billing 0 Units Charge for PT No reassessment? PHYSICIAN CERTIFICATION: I certify the specified therapy services for Jorge King are required, authorized, and reviewed every 30 days.
== END 2025-01-19 23:59 | disposition home or self-care (01) ==
LOC: PT 14:00
PROVIDERS: Visit Provider Internal Medicine
DX: M24.575 Contracture, left foot (principal)
CPT/HCPCS: 97110; 97140; 97530

== ENCOUNTER 2025-02-16 13:00 | Outpatient (RCR) | payer MEDICARE, SELFPAY | END 2025-02-16 23:59 | disposition home or self-care (01) | LOC: PT 13:00 | PROVIDERS: Visit Provider Internal Medicine | DX: M24.575 Contracture, left foot (principal); M62.58 Muscle wasting and atrophy, not elsewhere classified, other site; R29.898 Other symptoms and signs involving the musculoskeletal system | CPT/HCPCS: 97110; 97140; 97530 ==

== ENCOUNTER 2025-02-21 11:49 | Outpatient (CLI) | payer MEDICARE, SELFPAY ==
--- OUTSIDE RECORDS SUMMARY | 2025-02-23 11:51 | XMS_ITS | Encounter Summary ---
Author Organization [employer] ([place], [place], [place], [place]) Address [address] [place] [address] Care Team Providers Care Tour Coordinator Name Role Phone Unavailable Primary Care Provider Unavailabl e Encounter Details Date Type Department Care Team (Late st Contact Info) Description 11/17/2018 Transcribed Document [facility] [place] [address] [place] [address] ProviderErika MD [address] [place] [address] Social History Tobacco Use Types Packs/Day Years Used Date Smoking Tobacco: Never Assessed Sex and Gender Information Value Date Recorded Sex Assigned at Not on file Legal Sex Male 5:03 PM CDT Gender Identity Not on file Sexual Orientation Not on file documented as of this encounter Miscellaneous Notes * Cerner Conversion Note - Erika Jose MD - 11/17/2018 11:22 AM CDT Care Management Assessment/Plan Entered On: 11/17/2018 11:25 EDT Performed On: 11/17/2018 11:22 EDT by ODALYS FAULKNER Rn-RotoprinterPheresis Specialist Note Documentation Status Complete : Yes ODALYS FAULKNER Rn-Rotoprinter - 11/17/2018 11:22 EDT Patient History Information Obtained from, Care Mgt : Medical Record Emergency Contact #1 : Connie Emergency Contact #1 (H) Emergency Contact #1 Relationship : Emergency Contact #2 : Sheridan King Emergency Contact #2 (C) Emergency Contact #2 Relationship : daughter Living Situation : Home Current Home Treatments : None Patient History Note : 11/17/18 Pt sleeping and no family at the bedside. 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 From the medical record it appears pt is . Currently on 2L nc and has iv drips of insulin and nitro. RRS MODERATE. Will discuss STR and hh and pt when pt is awake. CF ODALYS FAULKNER, Rn-Rotoprinter - 11/17/2018 11:22 EDT Electronically signed by Parveen hilario Conversion Security Control Center Operator Cerner at 12/08/2022 12:11 PM CDT documented in this encounter Plan of Treatment Not on file documented as of this encounter Visit Diagnoses Not on filedocumented in this encounter
--- OUTSIDE RECORDS SUMMARY | 2025-02-23 11:51 | XMS_ITS | Encounter Summary ---
Author Organization [employer] ([place], [place], [place], [place]) Address [address] [place] [address] Care Team Providers Care Coat Presser Name Role Phone Unavailable Primary Care Provider Unavailabl e Encounter Details Date Type Department Care Team (Late st Contact Info) Description 11/17/2018 Transcribed Document [facility] Cardiology [address] [place] [address] Lc Armendariz MD [address] [facility] [address] [place] [address] Social History Tobacco Use Types Packs/Day Years Used Date Smoking Tobacco: Never Assessed Sex and Gender Information Value Date Recorded Sex Assigned at Not on file Legal Sex Male 5:03 PM CDT Gender Identity Not on file Sexual Orientation Not on file documented as of this encounter Miscellaneous Notes * Cerner Conversion Note - Lc Armendariz MD - 11/17/2018 10:26 AM EDT Patient: DOTTIE VILLASENOR Age: 78 years Sex: Male : 1940 Associated Diagnoses: None Author: LC ARMENDARIZ MD-CAR Basic Information PCP: Sanjuana Espino MD Control Electrician: Porfirio Combs MD Chief Complaint s/p bioprosthetic AVR and root reimplantation with CABG x 1 (RUSSELL to LAD) History of Present Illness 78 year old male who is POD 1 AVR with root reimplantation and CABG x 1. He is extubated and hemodynamically stable, however he does not open his eyes or follow commands with no verbal response. Cardiology has been consulted post operatively. Review of Systems JESSICA secondary to :LOC Health Status Allergies (2) Active Reaction No Known Allergies None Documented No Known Medication Allergies None Documented Home Medications (5) Active Avodart 0.5 mg oral capsule 0.5 mg = 1 Cap, Oral, AC Dinner levothyroxine 50 mcg (0.05 mg) oral tablet 50 mcg = 1 Tab, Oral, Daily losartan 100 mg oral tablet 100 mg = 1 Tab, Oral, Daily metoprolol extended release 50 mg, Oral, Daily rOPINIRole 2 mg oral tablet 2 mg = 1 Tab, Oral, At Bedtime Allergies: Allergic Reactions (Selected) No Known Allergies No Known Medication Allergies Current medications: (Selected) Inpatient Medications Ordered Avodart: 0.5 mg, Oral, AC Dinner Bactroban 2% nasal ointment: 1 Application, Nostrils Both, BID Dextrose 5% with 0.225% NaCl intravenous solution 1,000 mL: 30 mL/Hr, IntraVENous DuoNeb 0.5 mg-2.5 mg/3 mL inhalation solution: 3 mL, Nebulized Inhalation, RT_Q4H, PRN: Shortness of Breath Insulin regular injection 100 Units + Sodium Chloride 0.9% intravenous solution 100 mL: Corrective Insulin Drip, IntraVENous Lasix: 20 mg, IV Push, 1-Time, PRN: Other (See Comment) Lopressor: 12.5 mg, Oral, Q12H Milk of Magnesia 8% oral suspension: 30 mL, Oral, Q8H, PRN: Constipation Nitrostat: 0.4 mg, SubLINgual, Q5Min, PRN: Pain Normal Saline Flush: 10 mL, IV Push, Q12H Normal Saline Flush: 10 mL, IV Push, See Comment, PRN: IV Use Reglan: 5 mg, IV Push, Q6H, PRN: Nausea/Vomiting Senokot: 17.2 mg, Oral, BID Zofran: 4 mg, IV Push, Q4H, PRN: Nausea acetaminophen: 325 mg, Oral, Q4H, PRN: Fever albumin human 5% intravenous solution: 12.5 Gram, 250 mL, IntraVENous, Daily, PRN: Other (See Comment) albuterol CFC free 90 mcg/inh inhalation aerosol with adapter: 2 Puff, Inhalation, 1-Time aspirin: 81 mg, Oral, Daily calcium chloride: 1 Gram, 10 mL, 200 mL/Hr, IV Piggyback, 1-Time, PRN: Other (See Comment) dexmedetomidine injection 400 mcg + NaCl 0.9% for drip 100 mL: Titrate, IntraVENous levothyroxine: 50 mcg, Oral, Daily losartan: 100 mg, Oral, Daily magnesium sulfate + Sodium Chloride 0.9% intravenous solution 50 mL: 1 Gram, 2 mL, 100 mL/Hr, IV Piggyback, 1-Time, PRN: Other (See Comment) morphine: 4 mg, IV Push, Q30Min, PRN: Pain (Severe 7-10) nitroglycerin injection 25 mg + D5W Premix Diluent for Drip 250 mL: TITRATE, IntraVENous oxyCODONE: 5 mg, Oral, Q6H, PRN: Pain (Moderate 4-6) potassium chloride 10 mEq/50 mL intravenous solution: 10 mEq, 50 mL, 50 mL/Hr, IV Piggyback, Q1H, PRN: Other (See Comment) rOPINIRole: 2 mg, Oral, At Bedtime sodium bicarbonate 50 mEq per amp (adult): 100 mEq, IV Push, 1-Time, PRN: Other (See Comment) sodium bicarbonate 50 mEq per amp (adult): 50 mEq, IV Push, 1-Time, PRN: Other (See Comment) Documented Medications Documented Avodart 0.5 mg oral capsule: 1 Cap, Oral, AC Dinner, 0 Refill(s) levothyroxine 50 mcg (0.05 mg) oral tablet: 1 Tab, Oral, Daily, 60 Tab, 0 Refill(s) losartan 100 mg oral tablet: 1 Tab, Oral, Daily, 0 Refill(s) metoprolol extended release: 50 mg, Oral, Daily, 0 Refill(s) rOPINIRole 2 mg oral tablet: 1 Tab, Oral, At Bedtime, 0 Refill(s) Problem list: All Problems Aneurysm, thoracic aortic / [id number] / Confirmed Aortic valve insufficiency / 022588410 / Confirmed Arthritis / 3733804 / Confirmed At risk for sleep apnea / 43003174 / Confirmed CAD (coronary artery disease) / 65660560 / Confirmed Disorder of prostate ( enlarged) / 00575806 / Confirmed HTN - Hypertension / 6561846967 / Confirmed Hypothyroidism / 70245631 / Confirmed Frequent urination / 290499559 / Confirmed Cancer of skin of face / 5037729725 / Confirmed Nocturia / 854503678 / Confirmed Restless legs syndrome / 15362623 / Confirmed Prostate stricture / 77725833 / Confirmed Resolved: Bladder stone / 687423001 Canceled: Aneurysm / [id number] Canceled: Thyroid disease / 881021309 Histories No education data available. Social & Psychosocial Habits Alcohol 04/16/2017 Alcohol Use History, Social Habits No Alcohol Use in Last Twelve Months No Home/Environment 11/15/2018 Lives with: Spouse Living situation: Home/Independent Substance Abuse 04/16/2017 Recreational Drug Use History No Recreational Drug Use Last 12 Months No Tobacco 04/16/2017 Smoking Status Never smoker Past Medical History: Active HTN - Hypertension (1129978386) Hypothyroidism (66360622) Family History: Entire family history is negative. Procedure history: heart cath on 11/05/2018 at 78 Years. cholescystectoy. right inguinal hernia repair. colonoscopy. Left hernia repair. Bladder stone removed. skin cancer removed from nose. Physical Examination VS/Measurements Vitals Signs (last 24 hrs) Last Charted Minimum Maximum Temp 97 (NOV 16 12:45) 97 (NOV 16 12:45) 97.5 (NOV 16 12:30) Apical HR 83 (NOV 17 08:54) 69 (NOV 16 20:59) 83 (NOV 17 08:54) Mon HR 85 (NOV 17 09:00) 59 (NOV 16 22:45) 90 (NOV 17 07:15) Resp Rate H 34 (NOV 17 09:00) L 7 (NOV 16 13:00) H 38 (NOV 17 04:00) SBP 123 (NOV 16 13:00) 123 (NOV 16 13:00) 123 (NOV 16 13:00) DBP 68 (NOV 16 13:00) 68 (NOV 16 13:00) 68 (NOV 16 13:00) MAP 95 (NOV 17 09:00) 62 (NOV 17 01:00) 123 (NOV 16 13:15) SpO2 100 (NOV 17 09:00) 96 (NOV 17 05:25) 100 (NOV 16 12:30) General: Mild distress, Not alert and oriented. Eye: Pupils are equal, round and reactive to light. HENT: Oral mucosa is moist, No pharyngeal erythema. Neck: Supple, Non-tender, No carotid bruit. Respiratory: Breath sounds: Bilateral, Rhonchi present. Cardiovascular: Normal rate, Regular rhythm, No murmur. Gastrointestinal: Soft, Non-tender. Musculoskeletal: No tenderness, No swelling. Integumentary: Warm, Dry, [place]. Neurologic: Not alert, Not oriented. Psychiatric: not responsive. Review / Management NOV 17 03:12 142 110 20 / H 115 4.1 25 1.10 \ NOV 17 03:12 \ L 10.7 / H 15.3 L 112 / L 32.1 \ Cardiac Markers (Current Encounter/Past 24 Hours) No Cardiac Marker Results Found (Past 24 Hours) Blood Gases (Current Encounter/Past 24 Hours) pH Art 7.48 HI 11/17/2018 05:17 pCO2 Art 31.2 LOW 11/17/2018 05:17 pO2 Art 93.1 11/17/2018 05:17 HCO3 Art 23.4 11/17/2018 05:17 BE Art .4 11/17/2018 05:17 sO2 Art 98.5 11/17/2018 05:17 tHb Art 11.0 LOW 11/17/2018 05:17 FHHb <2.4 NA 11/17/2018 05:17 ctO2 15.1 NA 11/17/2018 05:17 FIO2 Art 40 NA 11/17/2018 05:17 Delivery Device Type Art Non-Invasive Ventilation 11/17/2018 05:17 Temperature, F Art 98.6 NA 11/17/2018 05:17 Art Blood Gas (ABG) Site Arterial Line NA 11/17/2018 05:17 Acceptable Taurus's Test Art Non-Applicable NA 11/17/2018 05:17 Ventilator Mode Art N/A NA 11/17/2018 05:17 Tidal Volume Set Art 450.0 NA 11/16/2018 13:12 Set Rate Art 14.0 NA 11/17/2018 05:17 Respiratory Rate Art 52.0 NA 11/17/2018 05:17 CPAP/PEEP Art 5.0 NA 11/16/2018 18:24 Pressure Support Art 8.0 NA 11/16/2018 18:24 Comment Art nppv 18/8 NA 11/17/2018 05:17 pH Art POC 7.430 11/16/2018 12:06 pCO2 Art POC 43.0 11/16/2018 12:06 pO2 Art POC 433.0 HI 11/16/2018 12:06 HCO3 Art POC 28.5 HI 11/16/2018 12:06 tCO2 Art POC 30.0 HI 11/16/2018 12:06 BE Art POC 4.0 HI 11/16/2018 12:06 sO2 Art POC >99.9 HI 11/16/2018 12:06 ABG Num of Draw Attempts 1 NA 11/17/2018 05:17 Radiology Results (Last 48 hours) [id number] -- 11/16/2018 06:45 CR Chest 2 Vws (11/15/2018 15:38) Result: TWO VIEW CHEST 11/15/2018 1:33 PMHISTORY: Preoperative respiratory clearance. COMPARISON: None.FINDINGS: The heart is normal in size . There is ectasia of the aortawith calcified plaque identified. The mediastinum is unremarkable . Thelungs are hyperexpanded. There is emphysema. There is no pneumothorax .The osseous structures are unremarkable . IMPRESSION: No acute cardiopulmonary process .Images reviewed, interpreted, and dictated by Dr. Niles Escalante.Transcribed by Clarence Roberts PA-C.Simona have personally viewed, interpreted and dictated the examination. Ihave read and agree with the above final transcribed report. CR Chest 1 Vw Portable (11/16/2018 12:55) Result: PORTABLE CHEST HISTORY: Pneumothorax.COMPARISON: 1 day prior.FINDINGS: The heart is stable in size. The patient is status post mediansternotomy. The endotracheal tube is in the mid thoracic trachea. Anasogastric tube extends below the diaphragm. Left-sided Keller-Ganzcatheter tip is in the left main pulmonary artery. Left-sided chest tubeand mediastinal drain are present. There is no pneumothorax. There ispulmonary vascular congestion. IMPRESSION: Post-operative changes with pulmonary vascular congestion.Images reviewed, interpreted, and dictated by Dr. Mindy Jane.Transcribed by Daniel Houston PA-C.Simona have personally viewed, interpreted and dictated the examination. Ihave read and agree with the above final transcribed report. CR Chest 1 Vw Portable (11/17/2018 03:00) Result: PORTABLE CHEST HISTORY: Pneumothorax.COMPARISON: PCXR from the previous day.FINDINGS: The heart is normal in size. Keller-Jovanna catheter tips in theleft pulmonary artery. There is improved pulmonary vascular congestion.There is a trace left pleural effusion.. There is no pneumothorax. Thereis unusual air density in the superior mediastinum of unknown etiology.Pneumomediastinum is not excluded. IMPRESSION: Postoperative changes with unusual air density in thesuperior mediastinum of unknown etiology. Pneumomediastinum is notexcluded and close interval follow-up recommended.Images reviewed, interpreted, and dictated by Dr. Niles Escalante.Transcribed by Daniel Houston PA-C.I have personally viewed, interpreted and dictated the examination. Ihave read and agree with the above final transcribed report. Results review: Labs (Last four charted values) WBC H 15.3 (NOV 17) 7.2 (NOV 15) HB L 10.7 (NOV 17) L 10.7 (NOV 16) L 11.2 (NOV 16) L 11.4 (NOV 16) HCT L 32.1 (NOV 17) L 32.9 (NOV 16) L 33.9 (NOV 16) L 34.1 (NOV 16) Plt L 112 (NOV 17) L 104 (NOV 16) 204 (NOV 15) Na 142 (NOV 17) 142 (NOV 16) 140 (NOV 15) K 4.1 (NOV 17) 3.9 (NOV 16) 4.6 (NOV 16) 3.6 (NOV 16) Cl 110 (NOV 17) 111 (NOV 16) 105 (NOV 15) CO2 25 (NOV 17) 25 (NOV 16) 31 (NOV 15) BUN 20 (NOV 17) 19 (NOV 16) 18 (NOV 15) Cr 1.10 (NOV 17) 1.00 (NOV 16) 1.00 (NOV 15) Glu R H 115 (NOV 17) H 113 (NOV 16) 89 (NOV 15) Ca L 7.9 (NOV 17) L 8.0 (NOV 16) 8.7 (NOV 15) PT 11.3 (NOV 15) INR 1.0 (NOV 15) PTT 25.7 (NOV 15) AST 29 (NOV 15) ALT 33 (NOV 15) ALK P 65 (NOV 15) T Bili H 1.9 (NOV 15) PTN 6.5 (NOV 15) ALB 3.7 (NOV 15) . Open Heart - 11/16/18; Porfirio Gaxiola IV, MD Resection and Grafting of Ascending Thoracic Aortic Aneurysm (30 mm Hemashield graft), 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 and Reimplantation of Coronaries (29 mm Medtronic Freestyle) CABG x 1 (RUSSELL>LAD). Impression and Plan IMPRESSION: CAD post op CABG x 1 (RUSSELL to LAD) Aortic insufficiency with ascending arotic aneurysm S/P Resection and Grafting of Ascending Thoracic Aortic Aneurysm, 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 and Reimplantation of Coronaries, CABG x 1 (RUSSELL>LAD). 11/16/18 Metabolic encephalopathy post operative HTN HLD Hypothyroidism. PLAN; Agree with Metoprolol, continue ARB with hold parameters AM labs documented in this encounter Plan of Treatment Not on file documented as of this encounter Visit Diagnoses Not on filedocumented in this encounter
--- OUTSIDE RECORDS SUMMARY | 2025-02-23 11:51 | XMS_ITS | Encounter Summary ---
Author Organization [employer] ([place], [place], [place], [place]) Address [address] [place] [address] Care Team Providers Care News Gathering Technician Name Role Phone Unavailable Primary Care Provider Unavailabl e Encounter Details Date Type Department Care Team (Late st Contact Info) Description 11/21/2018 Transcribed Document [facility] [place] [address] [place] [address] ProviderErika MD [address] [place] [address] Social History Tobacco Use Types Packs/Day Years Used Date Smoking Tobacco: Never Assessed Sex and Gender Information Value Date Recorded Sex Assigned at Not on file Legal Sex Male 5:03 PM CDT Gender Identity Not on file Sexual Orientation Not on file documented as of this encounter Miscellaneous Notes * Cerner Conversion Note - Historical ProviderMD - 11/21/2018 2:00 AM CDT Doctor Of Osteopathy Details Entered On: 11/21/2018 1:40 EDT Performed On: 11/21/2018 2:00 EDT by SHERRIE FUENTES, RN Order Details Transport Mode Order Detail : Portable Isolation Precautions Order Detail : Contact precautions Order Detail : N/A IV Order Detail : 1 Oxygen Order Detail : 1 Nurse Collect Order Detail : 1 Lift/Transfer : Moderate assist Central Line Order Detail : Yes Room Service : Not Appropriate Arterial Line : No SHERRIE FUENTES, RN - 11/21/2018 1:40 EDT Electronically signed by Christina Saini Conversion Critical Power Install Technician Felipe at 12/08/2022 12:39 PM CDT documented in this encounter Plan of Treatment Not on file documented as of this encounter Visit Diagnoses Not on filedocumented in this encounter
--- OUTSIDE RECORDS SUMMARY | 2025-02-23 11:51 | XMS_ITS | Encounter Summary ---
Author Organization [employer] ([place], [place], [place], [place]) Address [address] [place] [address] Care Team Providers Care Manager Consumer Insights Name Role Phone Unavailable Primary Care Provider Unavailabl e Encounter Details Date Type Department Care Team (Late st Contact Info) Description 11/22/[address] [facility] [place] Family Medicine [address] [place] [address] ProviderErika MD [address] [place] [address] Social History Tobacco Use Types Packs/Day Years Used Date Smoking Tobacco: Never Assessed Sex and Gender Information Value Date Recorded Sex Assigned at Not on file Legal Sex Male 5:03 PM CDT Gender Identity Not on file Sexual Orientation Not on file documented as of this encounter Miscellaneous Notes * [employer]ner Conversion Note - Erika ProviderMD - 11/22/2018 8:21 AM CDT FEES Evaluation Entered On: 11/22/2018 9:34 EDT Performed On: 11/22/2018 9:23 EDT by JOSSUE RODRÍGUEZ DELIVERY DIRECTOR General Information Visit Type, DELIVERY DIRECTOR : Re-Evaluation Patient Orders : DELIVERY DIRECTOR Fxnl Limitation Documentation x 1 -111 Start: 11/22/18 8:22:14 EDT - SYSTEM, SYSTEM FEES - Start: 11/22/18 8:21:00 EDT, Routine, For Swallow Eval and Treat -111 MARIEL ROBLES PA DELIVERY DIRECTOR Fxnl Limitation Documentation - Start: 11/20/18 9:37:47 EDT, Continuous Order -111 SYSTEM, SYSTEM Speech Language Pathology Additional Tx - Start: 11/20/18 9:36:00 EDT, For Dysphagia, Continuous Order -111 Admission Date : Admission Date/Time: 11/16/18 06:45:00 Medical Chart Reviewed, DELIVERY DIRECTOR : Yes Personal Devices : Personal Devices No Devices Recorded Assistive Devices : Assistive Devices No Devices Recorded Active Diagnoses : 11/17/2018 00:00 Atherosclerotic heart disease of [place] coronary artery without angina pectoris 11/17/2018 00:00 Essential (primary) hypertension 11/17/2018 00:00 Hypothyroidism, unspecified 11/17/2018 00:00 Nonrheumatic aortic (valve) insufficiency 11/17/2018 00:00 Restless legs syndrome 11/17/2018 00:00 Thoracic aortic aneurysm, without rupture 11/17/2018 00:00 Thrombocytopenia, unspecified 11/16/2018 00:00 Atherosclerotic heart disease of [place] coronary artery without angina pectoris 11/16/2018 00:00 Nonrheumatic aortic (valve) insufficiency 11/16/2018 00:00 Thoracic aortic aneurysm, without rupture Therapy Diagnosis, DELIVERY DIRECTOR : normal oral skills, moderate pharyngeal dysphagia Previous Speech/Language Evaluations : N/A Previous Swallow Precautions : Bedside 11/20 recommended instrumental prior to initiating PO diet Previous Cognitive Evaluations : N/A Diet/Intake Prior to Current Admission : Regular/thin Diet/Intake During Current Admission : NPO with TF via Corpak Gag Reflex Intact : Yes Intubation Comment, DELIVERY DIRECTOR : 11/16-11/17 Vital Signs RTF : Vitals Temp BP Pulse RR SpO2 FIO2 Date Wt(kg) Wt(lb) 11/20 09:15 ---- 133/75 --- 18 97 --- 11/16 79.2 174 11/20 09:00 ---- 133/75 --- 22 97 3.0L/m 11/15 79.2 174 11/20 08:45 ---- 136/79 --- 25 97 --- 11/20 08:30 ---- 136/79 --- 20 97 --- 11/20 08:15 ---- 137/73 --- 21 98 --- 24 Hr Tmax: No Data Available 36 Hr Tmax: No Data Available Vital Signs are the last 5 in the past 48 hours. Weights display the last 5 within 7 days. Initial Wt: 11/15 79.2 kg 174 lb Respiratory Assessment Comment : nasal cannula JOSSUE RODRÍGUEZ SLP - 11/22/2018 9:23 EDT General Status Patient Received Status, DELIVERY DIRECTOR : Long sitting in bed Patient Left Status, DELIVERY DIRECTOR : Long sitting in bed JOSSUE RODRÍGUEZ SLP - 11/22/2018 9:23 EDT Pain Assessment Pain Scaled Used : FACES Pain Score Pre-Intervention : 2 JOSSUE RODRÍGUEZ SLP - 11/22/2018 9:23 EDT Image 1 - Images currently included in the form version of this document have not been included in the text rendition version of the form. FEES Exam Swallow Outcome FEES : Impaired Swallow Positions FEES : Upright 90 degrees Head Control FEES : Neutral head position Trunk Control FEES : Upright centered position Presentation Style FEES : Staff Location of Scope FEES : Naris, left Sensitive to Scope Movement : No Appearance of hypopharynx : Feeding tube Consistencies Trialed FEES : Thin by straw, [place] by straw, Pureed, Regular solids JOSSUE RODRÍGUEZ SLP - 11/22/2018 9:23 EDT Swallow Impressions Impressions, FEES : Pharyngeal dysphagia JOSSUE RODRÍGUEZ SLP - 11/22/2018 9:23 EDT 8 Point Penetration/Aspiration Grid Thin by Straw : 8 [place] by Straw : 1 Pureed : 1 Regular Solids : 1 JOSSUE RODRÍGUEZ SLP - 11/22/2018 9:23 EDT Swallow Impairment Severity : Moderate JOSSUE RODRÍGUEZ SLP - 11/22/2018 9:23 EDT FEES Overall Impressions : Pt seated at 90 degrees in bed. Scope passed easily via L naris, Corpak in place via R. Pharynx clear of pooled or standing secretions. Slightly asymmetric movement of the cords and arynteoids with reduced movement on the L. Pt presents with normal oral skills and moderate pharyngeal dysphagia. Pharyngeal skills are characterized by mistiming and impaired laryngeal sensation. There is trace silent aspiration of thins which occurs during the swallow. Cued coughs and throat clears are effective at clearing aspirated material. There is no further penetration or aspiration with nectar, puree, or regular solids. There is no abnormal pharyngeal residue. Pt is safe to initiate a reg/nectar diet. Discussed with CT Surgery PA who OK'd PO diet order. D/c Corpak at discretion of MD or when pt is consuming enough PO calories for adequate nutritional intake. ST will tx dysphagia, ice/sips of water OK after oral care and between meals. Repeat study end of the week JOSSUE RODRÍGUEZ SLP - 11/22/2018 9:34 EDT Swallow Recommendations Recommended Diet Type, SwRec : Regular Recommended Liquid Diet, SwRec : [place] Feeding Presentation Style, SwRec : No restrictions Swallow Position, SwRec : Upright 90 degrees Supervision Level w/Meals, SwRec : Assist, standby Recommended Med Present, SwRec : Crushed, Whole, With nectar, With puree/pudding, No medications with water Recommended Exam, Sw Rec : FEES Repeat Swallow Exam Timeframe : 3-6 days JOSSUE RODRÍGUEZ SLP - 11/22/2018 9:34 EDT Therapy Indication Assessment DELIVERY DIRECTOR Indicated : Yes DELIVERY DIRECTOR Problem List : Impaired, Swallowing JOSSUE RODRÍGUEZ SLP - 11/22/2018 9:34 EDT Swallow Plan/Goals Treatment Frequency, DELIVERY DIRECTOR : 5 times per wk Treatment Plan Est w/Pt/Caregvr, Swallow : Yes JOSSUE RODRÍGUEZ SLP - 11/22/2018 9:34 EDT Swallow LTG Grid DELIVERY DIRECTOR Shelter Goal #1 DELIVERY DIRECTOR Shelter Goal #2 Swallow LTG : Establish safe oral diet without aspiration Improve swallowing function for oral intake Status : Goal met Initial Date Met : 11/22/2018 EDT JOSSUE RODRÍGUEZ SLP - 11/22/2018 9:34 EDT JOSSUE RODRÍGUEZ SLP - 11/22/2018 9:34 EDT Swallow Goals Grid Goal #1 Goal #2 Goal #3 Goal #4 Swallow STG : Other: Participate in FEES Improve swallow timing Demonstrate/verbalize importance of oral care prior to ice/water Other: repeat instrumental Related To : Aspiration prevention, Return to oral intake Aspiration prevention Aspiration prevention Measurement by repeat instrumental exam Date to Meet : 11/21/2018 EDT 11/26/2018 EDT 11/26/2018 EDT 11/26/2018 EDT Status : Goal met Initial goal Initial goal Initial goal Date Met : 11/22/2018 EDT JOSSUE RODRÍGUEZ SLP - 11/22/2018 9:34 EDT JOSSUE RODRÍGUEZ SLP - 11/22/2018 9:34 EDT JOSSUE RODRÍGUEZ SLP - 11/22/2018 9:34 EDT JOSSUE RODRÍGUEZ SLP - 11/22/2018 9:34 EDT Education Barriers To Learning : Other: pt is confused Individuals Taught : Child JOSSUE RODRÍGUEZ SLP - 11/22/2018 9:34 EDT DELIVERY DIRECTOR Education Assessment Grid 1 Aspiration : Needs further teaching Diet Recommendation : Needs further teaching Dysphagia : Needs further teaching Free Water Protocol : Needs further teaching Ice Chips : Needs further teaching Oral Care : Needs further teaching JOSSUE RODRÍGUEZ SLP - 11/22/2018 9:34 EDT DELIVERY DIRECTOR Education Assessment Grid 2 Speech Language Pathology Treatment Plan : Needs further teaching JOSSUE RODRÍGUEZ SLP - 11/22/2018 9:[address] [facility] DELIVERY DIRECTOR Charges FEES : 1 JOSSUE RODRÍGUEZ SLP - 11/22/2018 9:34 EDT documented in this encounter Plan of Treatment Not on file documented as of this encounter Visit Diagnoses Not on filedocumented in this encounter
--- OUTSIDE RECORDS SUMMARY | 2025-02-23 11:51 | XMS_ITS | Encounter Summary ---
Author Organization [employer] ([place], [place], [place], [place]) Address [address] [place] [address] Care Team Providers Care Director School Of Nursing Name Role Phone Unavailable Primary Care Provider Unavailabl e Encounter Details Date Type Department Care Team (Late st Contact Info) Description 11/17/2018 Transcribed Document [facility] [place] [address] [place] [address] ProviderErika MD [address] [place] [address] Social History Tobacco Use Types Packs/Day Years Used Date Smoking Tobacco: Never Assessed Sex and Gender Information Value Date Recorded Sex Assigned at Not on file Legal Sex Male 5:03 PM CDT Gender Identity Not on file Sexual Orientation Not on file documented as of this encounter Miscellaneous Notes * [employer]ner Conversion Note - Historical ProviderMD - 11/17/2018 2:00 AM CDT Early Childhood Lead Teacher Details Entered On: 11/17/2018 7:39 EDT Performed On: 11/17/2018 2:00 EDT by Alpesh Barraza RN Order Details Transport Mode Order Detail : Ambulatory Isolation Precautions Order Detail : Contact precautions Order Detail : N/A IV Order Detail : 1 Oxygen Order Detail : 1 Nurse Collect Order Detail : 1 Lift/Transfer : Moderate assist Central Line Order Detail : Yes Room Service : Not Appropriate Arterial Line : Yes Alpesh Barraza RN - 11/17/2018 7:38 EDT Electronically signed by Christina Saini Conversion Manager Professional Development Cerner at 12/08/2022 12:10 PM CDT documented in this encounter Plan of Treatment Not on file documented as of this encounter Visit Diagnoses Not on filedocumented in this encounter
--- OUTSIDE RECORDS SUMMARY | 2025-02-23 11:51 | XMS_ITS | Encounter Summary ---
Author Organization [employer] ([place], [place], [place], [place]) Address [address] [place] [address] Care Team Providers Care Equipment Cleaner Name Role Phone Unavailable Primary Care Provider Unavailabl e Encounter Details Date Type Department Care Team (Late st Contact Info) Description 11/21/2018 Transcribed Document [facility] [place] Family Medicine [address] [place] [address] ProviderErika MD [address] [place] [address] Social History Tobacco Use Types Packs/Day Years Used Date Smoking Tobacco: Never Assessed Sex and Gender Information Value Date Recorded Sex Assigned at Not on file Legal Sex Male 5:03 PM CDT Gender Identity Not on file Sexual Orientation Not on file documented as of this encounter Miscellaneous Notes * [employer]ner Conversion Note - Historical ProviderMD - 11/21/2018 5:00 AM CDT Height and Weight, Routine Entered On: 11/21/2018 5:37 EDT Performed On: 11/21/2018 5:00 EDT by SHERRIE FUENTES RN Height and Weight, Routine Routine Weight Source : Bed scale Routine Weight Entry Format : Metric Routine Weight, Kilograms : 81.8 kg(Converted to: 180 lb 5 oz) Routine Weight Calculation : 81.8 kg Height Source : Measured Height Entry Format : [place] Height, Feet : 6 ft Height, Inches : 1 Inch Clinical Height : 185.42 cm Body Surface Area (BSA), Routine : 2.06 m2 Body Mass Index (BMI), Routine : 23.79 kg/m2 SHERRIE FUENTES RN - 11/21/2018 5:37 EDT documented in this encounter Plan of Treatment Not on file documented as of this encounter Visit Diagnoses Not on filedocumented in this encounter
--- OUTSIDE RECORDS SUMMARY | 2025-02-23 11:51 | XMS_ITS | Encounter Summary ---
Author Organization [employer] ([place], [place], [place], [place]) Address [address] [place] [address] Care Team Providers Care Coat Ironer Hand Name Role Phone Unavailable Primary Care Provider Unavailabl e Encounter Details Date Type Department Care Team (Late st Contact Info) Description 11/17/2018 Transcribed Document [facility] [place] [address] [place] [address] ProviderErika MD [address] [place] [address] Social History Tobacco Use Types Packs/Day Years Used Date Smoking Tobacco: Never Assessed Sex and Gender Information Value Date Recorded Sex Assigned at Not on file Legal Sex Male 5:03 PM CDT Gender Identity Not on file Sexual Orientation Not on file documented as of this encounter Miscellaneous Notes * [employer]ner Conversion Note - Historical ProviderMD - 11/17/2018 5:00 AM CDT Height and Weight, Routine Entered On: 11/17/2018 7:37 EDT Performed On: 11/17/2018 5:00 EDT by Alpesh Barraza RN Height and Weight, Routine Routine Weight Source : Bed scale Routine Weight Entry Format : Metric Routine Weight, Kilograms : 81.6 kg(Converted to: 179 lb 14 oz) Routine Weight Calculation : 81.6 kg Height Source : Measured Height Entry Format : [place] Height, Feet : 6 ft Height, Inches : 1 Inch Clinical Height : 185.42 cm Body Surface Area (BSA), Routine : 2.06 m2 Body Mass Index (BMI), Routine : 23.73 kg/m2 Alpesh Barraza RN - 11/17/2018 7:37 EDT documented in this encounter Plan of Treatment Not on file documented as of this encounter Visit Diagnoses Not on filedocumented in this encounter
--- OUTSIDE RECORDS SUMMARY | 2025-02-23 11:51 | XMS_ITS | Encounter Summary ---
Author Organization [employer] ([place], [place], [place], [place]) Address [address] [place] [address] Care Team Providers Care Field Application Engineer Name Role Phone Unavailable Primary Care Provider Unavailabl e Encounter Details Date Type Department Care Team (Late st Contact Info) Description 11/22/2018 Transcribed Document [facility] [place] [address] [place] [address] ProviderErika MD [address] [place] [address] Social History Tobacco Use Types Packs/Day Years Used Date Smoking Tobacco: Never Assessed Sex and Gender Information Value Date Recorded Sex Assigned at Not on file Legal Sex Male 5:03 PM CDT Gender Identity Not on file Sexual Orientation Not on file documented as of this encounter Miscellaneous Notes * [employer] Conversion Note - Historical ProviderMD - 11/22/2018 5:00 AM CDT Height and Weight, Routine Entered On: 11/22/2018 6:09 EDT Performed On: 11/22/2018 5:00 EDT by Amanda Sigala RN Height and Weight, Routine Routine Weight Source : Bed scale Routine Weight Entry Format : Metric Amanda Sigala RN - 11/22/2018 6:08 EDT Amanda Sigala RN - 11/22/2018 6:15 EDT Height Source : Measured Height Entry Format : [place] Height, Feet : 6 ft Height, Inches : 1 Inch Clinical Height : 185.42 cm Amanda Sigala RN - 11/22/2018 6:08 EDT Amanda Sigala RN - 11/22/2018 6:15 EDT documented in this encounter Plan of Treatment Not on file documented as of this encounter Visit Diagnoses Not on filedocumented in this encounter
--- OUTSIDE RECORDS SUMMARY | 2025-02-23 11:51 | XMS_ITS | Encounter Summary ---
Author Organization [email or web address] ([place], [place], [place], [place]) Address [address] [place] [address] Care Team Providers Care Marine Steam Fitter Helper Name Role Phone Unavailable Primary Care Provider Unavailabl e Encounter Details Date Type Department Care Team (Late st Contact Info) Description 11/21/2018 Transcribed Document [facility] [place] [address] [place] [address] ProviderErika MD [address] [place], [place] [id number] Social History Tobacco Use Types Packs/Day Years Used Date Smoking Tobacco: Never Assessed Sex and Gender Information Value Date Recorded Sex Assigned at Not on file Legal Sex Male 5:03 PM CDT Gender Identity Not on file Sexual Orientation Not on file documented as of this encounter Miscellaneous Notes * Cerner Conversion Note - Erika Jose MD - 11/21/2018 8:21 AM CDT Patient: DOTTIE VILLASENOR Age: 78 years Sex: Male : 1940 Associated Diagnoses: None Author: MICHAEL RODRIGUEZ MD Basic Information ICU Day 5 POD# 5 s/p AAA repair, aortic root replacement, CABG X 1 He is more awake now but is not moving left side either spontaneously or to commands. Review of Systems Constitutional: Negative, Lethargic . Eye: Negative. Ear/Nose/Mouth/Throat: Negative. Respiratory: Negative. Cardiovascular: Negative. Gastrointestinal: Negative. Genitourinary: Michele in place. Endocrine: Negative. Immunologic: Negative. Musculoskeletal: Negative. Integumentary: Negative. Neurologic: Confusion, Confusion improving., Not moving his left side to commands. Psychiatric: Negative. All other systems are negative Health Status Allergies: Allergies (2) Active Reaction No Known Allergies None Documented No Known Medication Allergies None Documented Current medications: Medications by Classification Cardiovascular nitroglycerin 25 mg + D5W Premix Diluent 250 mL (nitroglycer - Bag Volume (mL) = 250, Initial Rate: 5 mcg/Min, IntraVENous, TITRATE, SBP Less Than 140 nitroglycerin (Nitrostat) - 0.4 mg, SubLINgual, Tab, Q5Min, PRN for Pain, Routine metoprolol (metoprolol tartrate) - 50 mg, Oral, Tab, Q12H, Routine furosemide (Lasix) - 20 mg, IV Push, Inj, 1-Time, PRN for Other (See Comment), Routine losartan - 100 mg, Oral, Tab, Daily, Routine Respiratory albuterol (albuterol CFC free 90 mcg/inh inhalation aerosol - 2 Puff, Inhalation, Inh, 1-Time albuterol-ipratropium (DuoNeb 0.5 mg-2.5 mg/3 mL inhalation - 3 mL, Nebulized Inhalation, Inh, RT_Q4H, PRN for Shortness of Breath, Routine GI ondansetron (Zofran) - 4 mg, IV Push, Inj, Q4H, PRN for Nausea, Routine magnesium hydroxide (Milk of Magnesia 8% oral suspension) - 30 mL, Oral, Liquid, Q8H, PRN for Constipation, Routine sodium bicarbonate (sodium bicarbonate 50 mEq per amp (adult - 50 mEq, IV Push, Inj, 1-Time, PRN for Other (See Comment), Routine sodium bicarbonate (sodium bicarbonate 50 mEq per amp (adult - 100 mEq, IV Push, Inj, 1-Time, PRN for Other (See Comment), Routine magnesium sulfate + Sodium Chloride 0.9% intravenous solutio - 1 Gram 2 mL, IV Piggyback, 1-Time, Administer over 30 Minute(s), PRN for Other (See Comment), Routine senna (Senokot) - 17.2 mg, Oral, Tab, BID, Routine metoclopramide (Reglan) - 5 mg, IV Push, Inj, Q6H, PRN for Nausea/Vomiting, Routine Endocrine levothyroxine - 50 mcg, Oral, Tab, Daily, Routine Neuro magnesium sulfate + Sodium Chloride 0.9% intravenous solutio - 1 Gram 2 mL, IV Piggyback, 1-Time, Administer over 30 Minute(s), PRN for Other (See Comment), Routine *Duplicate* rOPINIRole - 2 mg, Oral, Tab, At Bedtime, Routine HEENT saliva substitutes - 1 Curtis, Buccal, Liquid, Q2H, PRN for Other (See Comment), Routine Pain Meds morphine - 4 mg, IV Push, Inj, Q30Min, PRN for Pain (Severe 7-10), Routine oxyCODONE - 5 mg, Oral, Tab, Q6H, PRN for Pain (Moderate 4-6), Routine aspirin - 81 mg, Oral, EC Tab, Daily, Routine acetaminophen - 325 mg, Oral, Tab, Q4H, PRN for Fever, Routine Sedatives dexmedetomidine 400 mcg + Sodium Chloride 0.9% intravenous s - Bag Volume (mL) = 100, Initial Rate: 0.2 mcg/kg/Hr, IntraVENous, Titrate, RASS Equal to 0, RASS Equal to -1 Vitamins calcium chloride - 1 Gram 10 mL, IV Piggyback, 1-Time, Administer over 30 Minute(s), PRN for Other (See Comment), Routine magnesium sulfate + Sodium Chloride 0.9% intravenous solutio - 1 Gram 2 mL, IV Piggyback, 1-Time, Administer over 30 Minute(s), PRN for Other (See Comment), Routine *Duplicate* potassium chloride (potassium chloride 10 mEq/50 mL intraven - 10 mEq 50 mL, IV Piggyback, Inj, Q1H, Administer over 1 Hour(s), PRN for Other (See Comment), Routine sodium chloride (Normal Saline Flush) - 10 mL, IV Push, Inj, Q12H, Routine sodium chloride (Normal Saline Flush) - 10 mL, IV Push, Inj, See Comment, PRN for IV Use, Routine Other albumin human (albumin human 5% intravenous solution) - 12.5 Gram 250 mL, IntraVENous, Inj, Daily, PRN for Other (See Comment), Routine Undefined Medications dutasteride (Avodart) - 0.5 mg, Oral, Cap, AC Dinner, Routine emollients, topical (Chap Stick) - 1 Application, Topical, Stick, Q1H, PRN for Other (See Comment), Routine hydrALAZINE - 10 mg, IV Push, Inj, Q6H, PRN for Hypertension, Routine insulin regular (insulin regular sliding scale) - Scale A, SubCutaneous, Inj, Q6H, Routine insulin regular 100 Units + Sodium Chloride 0.9% intravenous - 100 mL, Bag Volume (mL) = 100, IntraVENous Problem list: Active Problems (13) Aneurysm, thoracic aortic Aortic valve insufficiency Arthritis At risk for sleep apnea CAD (coronary artery disease) Cancer of skin of face Disorder of prostate ( enlarged) Frequent urination HTN - Hypertension Hypothyroidism Nocturia Prostate stricture Restless legs syndrome Physical Examination Intake and Output Intake & Output Totals Last 24 Hours (7a-7a) Intake (16 Events) Continuous Infusions (6 mL) Medications (34.17 mL) Enteral Feeding Amount (720 mL) Output (12 Events) Michele Catheter (1310 mL) Input Total: 760.17 mL Output Total: 1310 mL Balance: -549.83 mL VS/Measurements Vitals Signs (last 24 hrs) Last Charted Minimum Maximum Apical HR H 108 (NOV 20 21:26) H 108 (NOV 20:) H 115 (NOV 20 13:22) Mon HR 102 (NOV 21 07:52) 84 (NOV 20 22:30) 121 (NOV 20 13:00) Resp Rate H 23 (NOV 21 07:52) 18 (NOV 20 09:15) H 35 (NOV 20 11:43) SBP 130 (NOV 21 07:00) L 84 (NOV 20 22:00) H 157 (NOV 20 21:26) DBP 69 (NOV 21 07:00) L 50 (NOV 20 20:30) 88 (NOV 20 19:00) MAP 93 (NOV 21 07:00) 63 (NOV 20 22:00) 117 (NOV 20 21:00) SpO2 97 (NOV 21 07:52) L 92 (NOV 20 11:43) 99 (NOV 20 15:41) General: Awake but somnolent.. Eye: Pupils are equal, round and reactive to light. HENT: Normocephalic. Neck: Supple. Respiratory: Lungs are clear to auscultation. Cardiovascular: Normal rate, Sinus tachycardia. Gastrointestinal: Soft, Non-tender. Lymphatics: No lymphadenopathy neck, axilla, groin. Musculoskeletal: Normal range of motion. Integumentary: Warm, Dry. Neurologic: Awke but somnolent. More awake than yesterday., Not moving left side.. Review / Management Results review: Labs (Last four charted values) WBC 9.3 (NOV 21) H 11.1 (NOV 20) H 15.0 (NOV 19) H 17.7 (NOV 18) HB L 11.2 (NOV 21) L 9.8 (NOV 20) L 10.0 (NOV 19) L 10.2 (NOV 18) HCT L 33.2 (NOV 21) L 29.9 (NOV 20) L 30.3 (NOV 19) L 30.3 (NOV 18) Plt L 156 (NOV 21) L 108 (NOV 20) L 101 (NOV 19) L 103 (NOV 18) Na 139 (NOV 21) 139 (NOV 20) 138 (NOV 19) 138 (NOV 18) K 3.9 (NOV 21) 3.8 (NOV 20) 4.0 (NOV 19) 3.8 (NOV 18) Cl 104 (NOV 21) 106 (NOV 20) 105 (NOV 19) 106 (NOV 18) CO2 29 (NOV 21) 30 (NOV 20) 28 (NOV 19) 27 (NOV 18) BUN H 24 (NOV 21) H 24 (NOV 20) 21 (NOV 19) 19 (NOV 18) Cr 0.70 (NOV 21) 0.70 (NOV 20) 0.70 (NOV 19) 0.90 (NOV 18) Glu R H 129 (NOV 21) H 153 (NOV 20) H 184 (NOV 19) H 200 (NOV 18) Ca L 8.3 (NOV 21) L 8.0 (NOV 20) L 7.9 (NOV 19) L 7.7 (NOV 18) PT 11.3 (NOV 15) INR 1.0 (NOV 15) PTT 25.7 (NOV 15) AST 29 (NOV 15) ALT 33 (NOV 15) ALK P 65 (NOV 15) T Bili H 1.9 (NOV 15) PTN 6.5 (NOV 15) ALB 3.7 (NOV 15) . Radiology results Radiology Results (Last 48 hours) [id number] -- 11/16/2018 06:45 CR Chest 1 Vw Portable (11/20/2018 04:12) Result: PORTABLE CHEST 11/20/2018 4:00 AMHISTORY: Shortness of breathCOMPARISON: 1 day priorFINDINGS: A Pelsor-Jovanna catheter tip terminates in the SVC. The Pelsor-Ganzcatheter has been retracted. The cardiac silhouette is moderatelyenlarged. The mediastinal and hilar contours are unremarkable. Thereare slightly increased small bilateral pleural effusions. There is nopneumothorax. The visualized osseous structures demonstrate no acuteabnormalities.IMPRESSION: Slightly increased small bilateral pleural effusions. Images reviewed, interpreted, and dictated by Dr. Andres Arcos.Transcribed by Nilton Samayoa.I have personally viewed, interpreted and dictated the examination. Danial read and agree with the above final transcribed report. CR Abdomen 1 Vw Portable (11/20/2018 13:15) Result: KUB HISTORY: Feeding tube placement.COMPARISON: None.FINDINGS: The feeding tube is identified below the diaphragm. The bowelgas pattern is nonspecific. There are no abnormally dilated loops ofbowel.IMPRESSION: Feeding tube tip terminates at the junction of the secondand third portions of the duodenum.Images reviewed, interpreted, and dictated by Dr. Andres Arcos.Transcribed by Nilton Samayoa.I have personally viewed, interpreted and dictated the examination. Danial read and agree with the above final transcribed report. Impression and Plan POD# 4 s/p AAA repair, aortic root replacement and CABG X 1. NEURO: He is lethargic and more arousable but still has confusion persists. He is not moving his left side either spontaneously or to commands. He is requiring restraints for his own safety. We will obtain a heat CT. CVS: Hypertensive and tachycardic. Lopressor dose was increased but he was placed back on NTG drip. Will add Norvasc to his antihypertensive regimen and wean NTG off. RESP: Stable. Encourage IS use. Still requiring supplemental oxygen. GI: Needs swallow study and speech evaluation before resumption of diet. Will need feeding tube placed for meds and nutritional support if he fails swallow evaulation. RENAL: Cr is table at 0.7. HEME: Pletelet count is improving. Plt 156 today. HCT stable documented in this encounter Plan of Treatment Not on file documented as of this encounter Visit Diagnoses Not on filedocumented in this encounter
--- OUTSIDE RECORDS SUMMARY | 2025-02-23 11:51 | XMS_ITS | Encounter Summary ---
Author Organization [employer] ([place], [place], [place], [place]) Address [address] [place] [address] Care Team Providers Care Dross Skimmer Name Role Phone Unavailable Primary Care Provider Unavailabl e Encounter Details Date Type Department Care Team (Late st Contact Info) Description 11/22/2018 Transcribed Document [facility] Family Medicine [address] [place] [address] ProviderErika MD [address], [place] [id number] Social History Tobacco Use Types Packs/Day Years Used Date Smoking Tobacco: Never Assessed Sex and Gender Information Value Date Recorded Sex Assigned at Not on file Legal Sex Male 5:03 PM CDT Gender Identity Not on file Sexual Orientation Not on file documented as of this encounter Miscellaneous Notes * Cerner Conversion Note - Erika ProviderMD - 11/22/2018 11:21 AM CDT Patient: DOTTIE VILLASENOR Age: 78 Years Sex: Male : 1940 Subjective Patient lying in bed. Still weak on left side. Review of Systems Respiratory - wearing [address] GI - has NG tube. Objective Vitals & Measurements HR: 108(Monitored) RR: 35 BP: 129/70 SpO2: 96% HT: 185.42 cm HT: 185.42 cm WT: 84.3 kg BMI: 24.52 Physical Exam Speech - fluent Motor - 0/5 in left arm 1-2/5 in left leg. Assessment/Plan 78 year old male who underwent resection and grafting of ascending thoracic aortic aneurysm, aortic valve replacement with stentless aortic valve root and reimplantation of coronaries, coronary artery bypass grafting X 1 ( left internal mammary artery graft to left anterior descending ) on November 16 . Post operatively , staff has noted left sided weakness and neglect . A head CT suggests right parietal ischemia. A cranial MRI is pending . 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 Recommend : a) Agree with aspirin a day. b) Follow up on fasting lipid panel. c) Follow up on cranial MRI . d) I have initiated stroke order sets. e) If he developed atrial fibrillation, consideration would need to be given to anticoagulation. f) I agree with SCDs that have been ordered. g) NPO until cleared by Speech. h) At discharge he should follow up with an outpatient neurologist and not drive until released by a physician. Medications Inpatient acetaminophen, 325 mg= 1 Tab, Oral, Q4H, PRN albumin human 5% intravenous solution, 12.5 Gram= 250 mL, IntraVENous, Daily, PRN albuterol CFC free 90 mcg/inh inhalation aerosol with adapter, 2 Puff, Inhalation, 1-Time aspirin, 81 mg= 1 Tab, Oral, Daily Avodart, 0.5 mg= 1 Cap, Oral, AC Dinner calcium chloride Chap Stick, 1 Application, Topical, Q1H, PRN dexmedetomidine injection 400 mcg + NaCl 0.9% for drip 100 mL Dextrose 5% with 0.225% NaCl intravenous solution 1,000 mL, 1000 mL, IntraVENous DuoNeb 0.5 mg-2.5 mg/3 mL inhalation solution, 3 mL, Nebulized Inhalation , RT_Q4H, PRN hydrALAZINE, 10 mg= 0.5 mL, IV Push, Q6H, PRN insulin regular sliding scale, Scale A, SubCutaneous, Q6H Lasix, 20 mg= 2 mL, IV Push, 1-Time, PRN levothyroxine, 50 mcg= 1 Tab, Oral, Daily losartan, 100 mg= 2 Tab, Oral, Daily magnesium sulfate + Sodium Chloride 0.9% intravenous solution 50 mL metoprolol tartrate, 50 mg= 1 Tab, Oral, Q12H Milk of Magnesia 8% oral suspension, 30 mL, Oral, Q8H, PRN morphine, 4 mg= 1 mL, IV Push, Q30Min, PRN nitroglycerin injection 25 mg + D5W Premix Diluent for Drip 250 mL Nitrostat, 0.4 mg= 1 Tab, SubLINgual, Q5Min, PRN Normal Saline Flush, 10 mL, IV Push, Q12H Normal Saline Flush, 10 mL, IV Push, See Comment, PRN Norvasc, 10 mg= 1 Tab, Oral, Daily oxyCODONE, 5 mg= 1 Tab, Oral, Q6H, PRN potassium chloride 10 mEq/50 mL intravenous solution, 10 mEq= 50 mL, IV Piggyback, Q1H, PRN Reglan, 5 mg= 1 mL, IV Push, Q6H, PRN rOPINIRole, 2 mg= 2 Tab, Oral, At Bedtime saliva substitutes, 1 [place], Buccal, Q2H, PRN Senokot, 17.2 mg= 2 Tab, Oral, BID sodium bicarbonate 50 mEq per amp (adult), 50 mEq= 50 mL, IV Push, 1-Time, PRN sodium bicarbonate 50 mEq per amp (adult), 100 mEq= 100 mL, IV Push, 1-Time, PRN Zofran, 4 mg= 2 mL, IV Push, Q4H, PRN documented in this encounter Plan of Treatment Not on file documented as of this encounter Visit Diagnoses Not on filedocumented in this encounter
--- OUTSIDE RECORDS SUMMARY | 2025-02-23 11:51 | XMS_ITS | Encounter Summary ---
Author Organization [employer] ([place], [place], [place], [place]) Address [address] [place] [address] Care Team Providers Care Target Aircraft Controller Name Role Phone Unavailable Primary Care Provider Unavailabl e Encounter Details Date Type Department Care Team (Late st Contact Info) Description 11/21/2018 Transcribed Document [facility] [place] [address] [place] [address] ProviderErika MD [address] [place] [address] Social History Tobacco Use Types Packs/Day Years Used Date Smoking Tobacco: Never Assessed Sex and Gender Information Value Date Recorded Sex Assigned at Not on file Legal Sex Male 5:03 PM CDT Gender Identity Not on file Sexual Orientation Not on file documented as of this encounter Miscellaneous Notes * Cerner Conversion Note - Erika Jose MD - 11/21/2018 4:22 PM CDT Patient: JORGE VILLASENOR Age: 78 Years Sex: Male : 1940 Chief Complaint Date of Symptom Onset: 11/16/18 Time of Symptom Onset: NA History of Present Illness Patient is a 78 year old male with a history of CAD,HTN,hypothyroidism,restless leg syndrome. He was admitted for CABG and aortic valve replacement. After surgery, he was noted to have some less movement of his left side. However, he has been very hard to awake for the last 4 days. He woke up completely today, and he doesn't seem to notice any deficit, but is noted to be having trouble swallowing and is neglecting the left side. Review of Systems 10 point review of systems negative except for above Physical Exam Vitals & Measurements HR: 96(Monitored) RR: 26 BP: 128/63 BP: 142/66(Line) SpO2: 96% HT: 185.42 cm WT: 81.8 kg BMI: 23.79 NAD Neck supple, no carotid bruit, lymph node negative Cardiac rrr, slight murmur chest ctab Abdomen soft, non-tender, non-distended Calves supple extremities good pulses, skin noted large chest surgery A0x3 No Aphasia, noted dysarthria Fundoscopic exam deferred due to small pupils CN 2-12 intact (left sdie facial droop) Extremities 5/5 strength on right, Left side 1/5/strength, slight catch left arm sensation intact to light touch, neglecting Reflexes 1+ throughout, toes upgoing on left No tremor Gait deferred Assessment/Plan Orders: MRI Brain WO 78 year old male with recent surgery. He developed what appears to be a right parietal lobe infarct afterwards. He is noted to already have an ECHO and duplex. Will get an MRI to confirm. 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 Use in Last 12 Months: No. Home/Environment Lives with Spouse. Living situation: Home/Independent. Substance Abuse Drug Use Hx: No. Use in Last 12 Months: No. Tobacco Smoking Status Never smoker. Allergies No Known Allergies No Known Medication Allergies Medications Inpatient acetaminophen, 325 mg= 1 Tab, [...] mg= 0.5 mL, IV Push, Q6H, PRN Insulin regular injection 100 Units + Sodium Chloride 0.9% intravenous solution 100 mL insulin regular sliding scale, Scale A, SubCutaneous, [...] Tab, Oral, At Bedtime saliva substitutes, 1 [place], Buccal, Q2H, PRN Senokot, 17.2 mg= 2 Tab, Oral, BID sodium bicarbonate 50 mEq per amp (adult), 50 mEq= 50 mL, IV Push, 1-Time, PRN sodium bicarbonate 50 mEq per amp (adult), 100 mEq= 100 mL, IV Push, 1-Time, PRN Zofran, 4 mg= 2 mL, IV Push, Q4H, PRN Home Avodart 0.5 mg oral capsule, 0.5 mg= 1 Cap, Oral, AC Dinner levothyroxine 50 mcg (0.05 mg) oral tablet, 50 mcg= 1 Tab, Oral, Daily losartan 100 mg oral tablet, 100 mg= 1 Tab, Oral, Daily metoprolol extended release, 50 mg, Oral, Daily rOPINIRole 2 mg oral tablet, 2 mg= 1 Tab, Oral, At Bedtime Lab Results NOV 21 05:04 139 104 H 24 / H 129 3.9 29 0.70 \ Diagnostic Results Direct Visualization:yes,CT Discussed with Radiologist or Reviewed Report: HEAD CT 11/21/2018 8:22 AM IMPRESSION: Questionable loss of sulci in the right parietal region. Consider MRI. Duplex RIGHT: < 20% stenosis of the prox ICA. Normal antegrade vertebral flow. No evidence of subclavian steal. LEFT: Intimal thickening only in the prox ICA. Normal antegrade vertebral flow. No evidence of subclavian steal. ECHO IMPRESSION: 1. Normal left ventricular size, mild left ventricular hypertrophy. No regional wall motion abnormalities. Ejection fraction 55% to 60%. Normal right ventricular size and function. 2. 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 Mildly dilated aortic root measuring 3.9 cm. Mild central aortic insufficiency. 3. Mild mitral and tricuspid regurgitation. 4. Following cardiopulmonary bypass, left ventricular function was unchanged. 5. A bioprosthetic aortic valve, root and ascending aortic conduit had been placed. There was no perivalvular leak, no aortic insufficiency, and no significant gradient across the valve. documented in this encounter Plan of Treatment Not on file documented as of this encounter Visit Diagnoses Not on filedocumented in this encounter
--- OUTSIDE RECORDS SUMMARY | 2025-02-23 11:51 | XMS_ITS | Encounter Summary ---
Author Organization [employer] ([place], [place], [place], [place]) Address [address] [place] [address] Care Team Providers Care Project Management It Specialist Name Role Phone Unavailable Primary Care Provider Unavailabl e Encounter Details Date Type Department Care Team (Late st Contact Info) Description 11/22/2018 Transcribed Document [facility] [place] Family Medicine [address] [place] [address] ProviderErika MD [address] [place] [address] Social History Tobacco Use Types Packs/Day Years Used Date Smoking Tobacco: Never Assessed Sex and Gender Information Value Date Recorded Sex Assigned at Not on file Legal Sex Male 5:03 PM CDT Gender Identity Not on file Sexual Orientation Not on file documented as of this encounter Miscellaneous Notes * Cerner Conversion Note - Erika ProviderMD - 11/22/2018 1:55 PM CDT Care Management Assessment/Plan Entered On: 11/22/2018 13:56 EDT Performed On: 11/22/2018 13:55 EDT by ODALYS FAULKNER Rn-E Business ConsultantLoan Expeditor Note Care Management Note : 11/22/18 Pt has had a cva. Spoke to his Connie and son Sumeet at the bedside. Pt is lfacid on the left side. Discussed the need for STR and they decided on [facility]. Sent pt info via [facility] to [facility]. CF Documentation Status Complete : Yes ODALYS FAULKNER Rn-E Business Consultant - 11/22/2018 13:55 EDT Patient History Emergency Contact #1 : Connie Emergency Contact #1 (H) Emergency Contact #1 Relationship : Emergency Contact #2 : Sheridan Fernando Emergency Contact #2 (C) Emergency Contact #2 Relationship : daughter Living Situation : Home Patient Lives With : Spouse Current Home Treatments : None Patient History Note Report : ODALYS FAULKNER Rn-E Business Consultant - 11/17/18 11:25:13 11/17/18 Pt sleeping and no family at the bedside. 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 From the medical record it appears pt is . Currently on 2L nc and has iv drips of insulin and nitro. RRS MODERATE. Will discuss STR and hh and pt when pt is awake. CF ODALYS FAULKNER Rn-E Business Consultant - 11/22/2018 13:55 EDT Electronically signed by [facility], [facility] Conversion Human Resources Administrator Cerner at 12/08/2022 12:32 PM CDT documented in this encounter Plan of Treatment Not on file documented as of this encounter Visit Diagnoses Not on filedocumented in this encounter
--- OUTSIDE RECORDS SUMMARY | 2025-02-23 11:51 | XMS_ITS | Encounter Summary ---
Author Organization [employer] ([place], [place], [place], [place]) Address [address] [place] [address] Care Team Providers Care Surgery Scheduling Coordinator Name Role Phone Unavailable Primary Care Provider Unavailabl e Encounter Details Date Type Department Care Team (Late st Contact Info) Description 11/22/2018 Transcribed Document [facility] [place] Family Medicine [address] [place] [address] ProviderErika MD [address] [place] [address] Social History Tobacco Use Types Packs/Day Years Used Date Smoking Tobacco: Never Assessed Sex and Gender Information Value Date Recorded Sex Assigned at Not on file Legal Sex Male 5:03 PM CDT Gender Identity Not on file Sexual Orientation Not on file documented as of this encounter Miscellaneous Notes * Cerner Conversion Note - Erika ProviderMD - 11/22/2018 11:18 AM CDT Spiritual Care Assessment Entered On: 11/24/2018 2:44 EDT Performed On: 11/22/2018 11:18 EDT by LEONEL GUZMAN Chaplain General Information Alevism Preference : Hoahaoism LEONEL GUZMAN Chaplain - 11/24/2018 2:35 EDT Spiritual Assessment Spiritual Assessment Comment/Summary Points : Prov. empathetic engaged listening: Pt. is Hoahaoism, spouse & son visit pt. regularly, Spouse & Pt. in their late teens. Pt. enjoys reminiscing and story telling, Pt. looking forward to [facility] rehab noting he wants/needs to work hard, Prov. copy of [employer] for which pt. was very appreciative. Concluded visit with prayer. Spirital Assessment Comment/Summary Report : SPIRITUAL ASSESSMENT COMMENT/SUMMARY Spiritual Assessment Comment/Summary 11/18/18 10:32:00 Patient off vent, opens eyes but groggy. Nodded affirmatively to offer for prayer. A daughter arrived and confirmed patient open to prayer and making slow progress. She and family are alternating visiting. Signed By: MARCOS GASCA EDWIN, Chaplain - 11/24/2018 2:35 EDT documented in this encounter Plan of Treatment Not on file documented as of this encounter Visit Diagnoses Not on filedocumented in this encounter
--- OUTSIDE RECORDS SUMMARY | 2025-02-23 11:52 | XMS_ITS | Encounter Summary ---
Author Organization [employer] ([place], [place], [place], [place]) Address [address] [place] [address] Care Team Providers Care Inseam Trimmer Name Role Phone Unavailable Primary Care Provider Unavailabl e Encounter Details Date Type Department Care Team (Late st Contact Info) Description 11/30/2018 Transcribed Document [facility] [place] [address] [place] [address] ProviderErika MD [address] [place] [address] Social History Tobacco Use Types Packs/Day Years Used Date Smoking Tobacco: Never Assessed Sex and Gender Information Value Date Recorded Sex Assigned at Not on file Legal Sex Male 5:03 PM CDT Gender Identity Not on file Sexual Orientation Not on file documented as of this encounter Miscellaneous Notes * Cerner Conversion Note - Erika ProviderMD - 11/30/2018 3:24 PM CDT Care Management Assessment/Plan Entered On: 11/30/2018 15:30 EDT Performed On: 11/30/2018 15:24 EDT by SUZANNA HAINES Social Worker Care Management Note Anticipated Discharge Date : 12/01/2018 14:00 EDT Care Management Note : Covering today for D/c planning, pt back on 3E room 330. Discussed w/ Carmen from [facility] who is still following pt. She has submitted pt info to for approval. Pt had EGD 11/29 which revealed duodenal ulcer w/ clot but no bleeding, no intervention needed, Off heparin gtt, watching pt's INR and H & H. Speech signed off today, pt is cleared for thins. Met w/ pt and family and informed them of [facility] situation. Also discussed outpt Cardiac Rehab. They prefer to go to [facility]. Phoned them and left msg, sent pt info to them. CM will cont to follow. Care Management Note Report : ANGELA NAIR Social Worker - 11/26/18 11:20:05 Continue to follow for discharge needs and arrangements, chart reviewed, admission day 10, transfer from [facility], on room air, WBC=11.2, INR=1.1, PTT=55.8, on IV Heparin gtt due to DVT in left arm, MBS completed today now on regular cardiac diet with thin liquids, PT/OT following (not seen on 11/25/18) followed up with [facility] today regarding possible admission - plan is to submit for approval today after being seen by therapy. Awaiting ANGELA NAIR Social Worker - 11/26/18 11:24:04 Continue to follow for discharge needs and arrangements, chart reviewed, admission day 10, transfer from [facility], on room air, WBC=11.2, INR=1.1, PTT=55.8, on IV Heparin gtt due to DVT in left arm, MBS completed today now on regular cardiac diet with thin liquids, PT/OT following (not seen on 11/25/18) followed up with [facility] today regarding possible admission - plan is to submit for approval today after being seen by therapy, for their MD approval. Once accepting MD in place, bed in place and patient is medically stable will be able to transfer due to patient not requiring a insurance prior auth. CM will continue to follow. ODALYS FAULKNER Rn-Operation Agent - 11/24/18 13:22:19 11/24/18 Andra from [facility] called to let me know they started a precert on this pt. CF ODALYS FAULKNER Rn-Operation Agent - 11/22/18 13:56:32 11/22/18 Pt has had a cva. Spoke to his Connie and son Sumeet at the bedside. Pt is lfacid on the left side. Discussed the need for STR and they decided on [facility]. Sent pt info via [id number] to [facility]. CF Documentation Status Complete : Yes SUZANNA HAINES Gasoline Engine Inspector - 11/30/2018 15:24 EDT Discharge Planning Details Persons Assisting Patient at Home : Spouse SUZANNA HAINES Social Worker - 11/30/2018 15:24 EDT Electronically signed by [facility] Conversion Talkback Host Felipe at 12/08/2022 12:27 PM CDT documented in this encounter Plan of Treatment Not on file documented as of this encounter Visit Diagnoses Not on filedocumented in this encounter
--- OUTSIDE RECORDS SUMMARY | 2025-02-23 11:52 | XMS_ITS | Encounter Summary ---
Author Organization [employer] ([place], [place], [place], [place]) Address [address] [place] [address] Care Team Providers Care Electronic Gluing Machine Operator Name Role Phone Unavailable Primary Care Provider Unavailabl e Encounter Details Date Type Department Care Team (Late st Contact Info) Description 11/30/2018 Transcribed Document [facility] [place] Family Medicine [address] [place] [address] ProviderErika MD [address] [place] [address] Social History Tobacco Use Types Packs/Day Years Used Date Smoking Tobacco: Never Assessed Sex and Gender Information Value Date Recorded Sex Assigned at Not on file Legal Sex Male 5:03 PM CDT Gender Identity Not on file Sexual Orientation Not on file documented as of this encounter Miscellaneous Notes * Cerner Conversion Note - Historical ProviderMD - 11/30/2018 5:00 AM CDT Chart Check - Review Order Profile Entered On: 11/30/2018 3:25 EDT Performed On: 11/30/2018 5:00 EDT by Dixie Fox RN Chart Check Powerplans Initiated/Discontinued as Appropriate : Yes All Active Orders Reviewed : Yes Dixie Fox RN - 11/30/2018 3:25 EDT documented in this encounter Plan of Treatment Not on file documented as of this encounter Visit Diagnoses Not on filedocumented in this encounter
--- OUTSIDE RECORDS SUMMARY | 2025-02-23 11:52 | XMS_ITS | Encounter Summary ---
Author Organization [employer] ([place], [place], [place], [place]) Address [address] [place] [address] Care Team Providers Care Studio Operation Engineer Name Role Phone Unavailable Primary Care Provider Unavailabl e Encounter Details Date Type Department Care Team (Late st Contact Info) Description 11/29/2018 Transcribed Document [facility] [place] Family Medicine [address] [place] [address] ProviderErika MD [address] [place] [address] Social History Tobacco Use Types Packs/Day Years Used Date Smoking Tobacco: Never Assessed Sex and Gender Information Value Date Recorded Sex Assigned at Not on file Legal Sex Male 5:03 PM CDT Gender Identity Not on file Sexual Orientation Not on file documented as of this encounter Miscellaneous Notes * Cerner Conversion Note - Historical ProviderMD - 11/29/2018 5:00 PM CDT Chart Check - Review Order Profile Entered On: 11/29/2018 17:38 EDT Performed On: 11/29/2018 17:00 EDT by CHIQUI STATON, RN Chart Check All Active Orders Reviewed : Yes CHIQUI STATON RN - 11/29/2018 17:38 EDT Electronically signed by Christina Saini Conversion Door To Door Sales Representative Cerner at 12/08/2022 12:25 PM CDT documented in this encounter Plan of Treatment Not on file documented as of this encounter Visit Diagnoses Not on filedocumented in this encounter
--- OUTSIDE RECORDS SUMMARY | 2025-02-23 11:52 | XMS_ITS | Encounter Summary ---
Author Organization [employer] ([place], [place], [place], [place]) Address [address] [place] [address] Care Team Providers Care Officer Captain Name Role Phone Unavailable Primary Care Provider Unavailabl e Encounter Details Date Type Department Care Team (Late st Contact Info) Description 11/30/2018 Transcribed Document [facility] [place] [address] [place] [address] ProviderErika MD [address] [place] [address] Social History Tobacco Use Types Packs/Day Years Used Date Smoking Tobacco: Never Assessed Sex and Gender Information Value Date Recorded Sex Assigned at Not on file Legal Sex Male 5:03 PM CDT Gender Identity Not on file Sexual Orientation Not on file documented as of this encounter Miscellaneous Notes * Cerner Conversion Note - Historical ProviderMD - 11/30/2018 3:17 PM CDT Attempt to Treat, PT Entered On: 11/30/2018 15:17 EDT Performed On: 11/30/2018 15:17 EDT by SENIA QUINTANA PTA Attempt to Treat Unable to Treat Due To : Patient Refusal Inability to Treat Comment : Patient was eating; will check back 12/01. Notification : SENIA Soria PTA - 11/30/2018 15:17 EDT documented in this encounter Plan of Treatment Not on file documented as of this encounter Visit Diagnoses Not on filedocumented in this encounter
--- OUTSIDE RECORDS SUMMARY | 2025-02-23 11:52 | XMS_ITS | Encounter Summary ---
Author Organization [employer] ([place], [place], [place], [place]) Address [address] [place] [address] Care Team Providers Care Inserter Promotional Item Name Role Phone Unavailable Primary Care Provider Unavailjuliana e Encounter Details Date Type Department Care Team (Late st Contact Info) Description 11/29/2018 Transcribed Document [facility] [place] [address] [place] [address] ProviderErika MD [address] [place] [address] Social History Tobacco Use Types Packs/Day Years Used Date Smoking Tobacco: Never Assessed Sex and Gender Information Value Date Recorded Sex Assigned at Not on file Legal Sex Male 5:03 PM CDT Gender Identity Not on file Sexual Orientation Not on file documented as of this encounter Miscellaneous Notes * Cerner Conversion Note - Erika ProviderMD - 11/29/2018 9:14 AM CDT Treatment Intervention, OT Entered On: 11/29/2018 13:12 EDT Performed On: 11/29/2018 9:14 EDT by DAKOTA VELAZQUEZ, OTR/L General Information, OT Visit Type, OT : Treatment Note Patient Orders : Order Date Order Ordering 11/22/2018 11:18 OT Evaluation and Treatment Ordered By: JAY JAY CRESPO MD-DIANE 11/23/2018 15:21 OT Additional Treatment Ordered By: Active Diagnoses : Thoracic aortic aneurysm, ruptured 11/29/2018 00:00 Acute embolism and thrombosis of unspecified deep veins of unspecified lower extremity 11/29/2018 00:00 Acute posthemorrhagic anemia 11/29/2018 00:00 Gastrointestinal hemorrhage, unspecified 11/23/2018 00:00 Cerebral infarction, unspecified 11/17/2018 00:00 Atherosclerotic heart disease of [place] coronary artery without angina pectoris 11/17/2018 00:00 Essential (primary) hypertension 11/17/2018 00:00 Hypothyroidism, unspecified 11/17/2018 00:00 Nonrheumatic aortic (valve) insufficiency 11/17/2018 00:00 Restless legs syndrome 11/17/2018 00:00 Thoracic aortic aneurysm, without rupture 11/17/2018 00:00 Thrombocytopenia, unspecified 11/16/2018 00:00 Atherosclerotic heart disease of [place] coronary artery without angina pectoris 11/16/2018 00:00 Nonrheumatic aortic (valve) insufficiency 11/16/2018 00:00 Thoracic aortic aneurysm, without rupture Admission Date : 11/16/2018 06:45 Co-treated by, OT : ex assistant/program director (ROLL COVERER) Personal Devices : Personal Devices No Devices Recorded Assistive Devices : Assistive Devices No Devices Recorded DAKOTA VELAZQUEZ OTR/Ginny - 11/29/2018 13:08 EDT General Status Patient Received Status : Supine in bed Treatment Start Time : 11/29/2018 8:51 EDT Patient Left Status : Supine in bed, RN/PCT informed, All needs met and within reach RN/PCT Informed Comment : TONJA Sanchez Treatment End Time : 11/29/2018 9:14 EDT Treatment Time : 23 Minute(s) DAKOTA VELAZQUEZ OTR/Ginny - 11/29/2018 13:08 EDT Therapeutic Exercises, OT OT Range of Motion Grid Exercise #1 Exercise : Passive Range Of Motion (PROM) Location : Upper extremity Laterality : Left Position : Supine Reps : 10x Time : 8 mins DAKOTA VELAZQUEZ OTR/Ginny - 11/29/2018 13:08 EDT Functional Mobility Mobility Grid Bed Scooting : Rehab Total assistance Supine to Sit : Rehab Maximal assistance (Comment: x2 [DAKOTA VELAZQUEZ OTR/Ginny - 11/29/2018 13:08 EDT] ) Sit to Supine : Rehab Maximal assistance (Comment: x2 [DAKOTA VELAZQUEZ OTR/Ginny - 11/29/2018 13:08 EDT] ) DAKOTA VELAZQUEZ OTR/Ginny - 11/29/2018 13:08 EDT Plan of Care, OT OT Tx Plan/Goals Established w Patient : Yes DAKOTA VELAZQUEZ OTR/L - 11/29/2018 13:08 EDT Middle School Teacher Goals, OT Self Feeding LTG Grid Goal #1 Activity : Self feeding Assist : Independent, modified Date to Meet : 12/07/2018 EDT Goal Status : Progressing, continue CAROLINEDAKOTA Luana OTR/L - 11/29/2018 13:08 EDT Grooming LTG Grid Goal #1 Activity : Grooming Assist : Assist, minimal Date to Meet : 12/07/2018 EDT Goal Status : Initial goal CAROLINE TRISTANJAYCOB Craft OTR/L - 11/29/2018 13:08 EDT Dressing, Upper Body LTG Grid Goal #1 Activity : Dressing, Upper Body Assist : Assist, minimal Date to Meet : 12/07/2018 EDT Goal Status : Initial goal CAROLINE TRISTANJAYCOB Craft OTR/L - 11/29/2018 13:08 EDT Toilet Transfer LTG Grid Goal #1 Activity : Toilet Transfer, Stand Pivot Sit Assist : Assist, moderate Date to Meet : 12/07/2018 EDT Goal Status : Initial goal DAKOTA VELAZQUEZ OTR/L - 11/29/2018 13:08 EDT Bed Mobility/ Bed Transfer LTG Grid Goal #1 Activity : Bed Mobility/Bed Transfer Assist : Assist, moderate Date to Meet : 12/07/2018 EDT Goal Status : Progressing, continue CAROLINE TRISTANEULOGIOTYRELL Luana OTR/L - 11/29/2018 13:08 EDT Other LTG Grid Goal #1 Goal #2 Goal #3 Goal : pt to participate in AAROM of L UE Pt to complete self ROM of L UE Pt to sit EOB 5 minutes with supervision and cueing during functional task Date to Meet : 12/07/2018 EDT 12/07/2018 EDT 12/07/2018 EDT Goal Status : Progressing, continue Initial goal Progressing, continue DAKOTA VELAZQUEZ, OTR/L - 11/29/2018 13:08 EDT DAKOTA VELAZQUEZ OTR/L - 11/29/2018 13:08 EDT DAKOTA VELAZQUEZ, OTR/L - 11/29/2018 13:08 EDT Treatment Note Subjective Comment : Pt and RN okay'd OT tx at this time Patient's Response to Treatment : Pt tolerated OT tx well Additional Objective Information : Pt supine in bed upon OT arrival. Pt to EOB with Max Ax2. Pt sat EOB for ~10 mins with Min A initially, progressing to supervision for static sitting balance. Pt returned to supine with Max Ax2. While supine in bed, pt tolerated LUE PROM exercises (shoulder flexion, elbow flexion/extension, and wrist flexion/extension) 10x each. Pt required Total A to scoot toward HOB. Pt left supine in bed with call light/phone within reach. Assessment : Pt would continue to benefit from skilled OT services to improve fxnl status. Plan for Treatment : Continue with pt's POC per pt tolerance. DAKOTA VELAZQUEZ OTR/L - 11/29/2018 13:08 EDT Pain Assessment Pain Scaled Used : 0-10 Pain scale Pain Score Pre-Intervention : 0 DAKOTA VELAZQUEZ OTR/L - 11/29/2018 13:08 EDT Image 1 - Images currently included in the form version of this document have not been included in the text rendition version of the form. [facility] OT Charges OT Ther Activities Ea 15 Min : 1 OT Therapeutic Exercise Ea 15Min : 1 DAKOTA VELAZQUEZ OTR/L - 11/29/2018 13:08 EDT documented in this encounter Plan of Treatment Not on file documented as of this encounter Visit Diagnoses Not on filedocumented in this encounter
--- OUTSIDE RECORDS SUMMARY | 2025-02-23 11:52 | XMS_ITS | Encounter Summary ---
Author Organization [employer] ([place], [place], [place], [place]) Address [address] [place] [address] Care Team Providers Care Replenishment Buyer Name Role Phone Unavailable Primary Care Provider Unavailabl e Encounter Details Date Type Department Care Team (Late st Contact Info) Description 11/29/2018 Transcribed Document [facility] [place] [address] [place] [address] ProviderErika MD [address] [place] [address] Social History Tobacco Use Types Packs/Day Years Used Date Smoking Tobacco: Never Assessed Sex and Gender Information Value Date Recorded Sex Assigned at Not on file Legal Sex Male 5:03 PM CDT Gender Identity Not on file Sexual Orientation Not on file documented as of this encounter Miscellaneous Notes * Cerner Conversion Note - Erika ProviderMD - 11/29/2018 2:51 PM CDT [facility] Endo PACU Summary Primary Physician: RIGOBERTO YU MD Finalized Date/Time: 11/29/18 15:36:07 Pt. Name: VILLASENOR DOTTIE Ladan Gerber/Sex: 1940 Male Med Rec #: [id number] Physician: JULIO CESAR CARVALHO MD-[facility] Financial #: [id number] Pt. Type: I Room/Bed: 330/1 Admit/Disch: 11/16/18 06:45:00 - Institution: [facility] Endo PACU Case Times Entry 1 In PACU I 11/29/18 15:10:00 Ready for PACU 11/29/18 15:35:00 Discharge Discharge from PACU 11/29/18 15:35:00 I Last Modified By: Destiney Mckenzie RN 11/29/18 15:35:51 [facility] Endo PACU Case Times Audit 11/29/18 15:35:51 Industrial Maintenance Manager: JAYOSETC Modifier: DEROSETC <+> 1 Ready for PACU Discharge <+> 1 Discharge from PACU I Finalized By: Destiney Mckenzie RN Document Signatures Signed By: Destiney Mckenzie RN 11/29/18 15:36 Electronically signed by Parveen [facility] Conversion [employer] And Policy Professor Cerner at 12/08/2022 12:16 PM CDT documented in this encounter Plan of Treatment Not on file documented as of this encounter Visit Diagnoses Not on filedocumented in this encounter
--- OUTSIDE RECORDS SUMMARY | 2025-02-23 11:52 | XMS_ITS | Encounter Summary ---
Author Organization [employer] ([place], [place], [place], [place]) Address [address] [place] [address] Care Team Providers Care Library Attendant Name Role Phone Unavailable Primary Care Provider Unavailabl e Encounter Details Date Type Department Care Team (Late st Contact Info) Description 11/29/2018 Transcribed Document [facility] [place] Family Medicine [address] [place] [address] ProviderErika MD [address] [place], [place] [id number] Social History Tobacco Use Types Packs/Day Years Used Date Smoking Tobacco: Never Assessed Sex and Gender Information Value Date Recorded Sex Assigned at Not on file Legal Sex Male 5:03 PM CDT Gender Identity Not on file Sexual Orientation Not on file documented as of this encounter Miscellaneous Notes * Cerner Conversion Note - Erika Jose MD - 11/29/2018 8:28 AM CDT Patient: DOTTIE VILLASENOR Age: 78 years Sex: Male : 1940 Associated Diagnoses: CAD (coronary artery disease), [place] coronary artery; Thrombocytopenia; Coronary artery disease; HTN (hypertension); Hypothyroidism; Aortic insufficiency; RLS (restless legs syndrome); Thoracic ascending aortic aneurysm; Right MCA CVA (cerebral vascular accident); Acute blood loss anemia; LUE DVT (deep venous thrombosis); GI bleed Author: MARIEL ROBLES PA Basic Information POD#13 S/P Resection and Grafting of Ascending Thoracic Aortic Aneurysm (30 mm Hemashield graft), 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 and Reimplantation of Coronaries (29 mm Medtronic Freestyle), CABG x 1 (RUSSELL>LAD). 11/17/18: The pt is extubated and O2 saturations 100% 3L/NC. The pt does not follow commands. He did slightly node his head yes when I asked him if he could hear us. 11/18/18: The pt is more alert today. He is still extremely weak and voice is at a mumble and still not moving much. His dtr who is present at his bedside said that he was speaking mroe to her. 11/19/18 The pt is about the same today. He does open his eyes but did not tell me his name. He continues to be extremely weak and did not move his extremities to command. The RN states she did see him lift his right arm to scratch face when his bipap mask was on. 11/22/18: The pt has progressed over the weekend. His voice is much stronger. He is moving his right side. Left side is weak. 11/23/18: The pt is pleasant and working with S.T. He remains with left sided paralysis. He sat in a chair for several hours today. 11/24/18: The pt is OOB in a chair, eating breakfast. He is very pleasant and voices no complaints. 11/25/18: Sleepy this morning - wants to get up to chair today, no change in left side weakness 11/26/18: Improved left arm swelling, up to chair, eating without difficulty 11/27/18: Continued improvement in left arm swelling 11/28/18: Transferred back to CTVU with GI bleed 11/29/18: The pt is on protonix gtt. He voices no complaints. Review of Systems Constitutional: Weakness. Respiratory: No shortness of breath. Cardiovascular: No chest pain. Neurologic: left side paralysis. Health Status Allergies: Allergic Reactions (Selected) No Known Allergies No Known Medication Allergies, Allergies (2) Active Reaction No Known Allergies None Documented No Known Medication Allergies None Documented Physical Examination Intake and Output 24 hour intake: Total 1,918 ml 24 hour output: Total 1,750 ml VS/Measurements Vital Measurements 11/29/2018 7:00 EDT Heart Rate Monitored 102 bpm HI Systolic Blood Pressure 139 mmHg Diastolic Blood Pressure 64 mmHg Mean Arterial Pressure (MAP)-BMDI 89 Oxygen Saturation 100 % Oxygen Therapy Mode Nasal cannula Oxygen Flow Rate 2 Liter/Min 11/29/2018 4:00 EDT Temperature, Fahrenheit 97.9 Deg F Clinical Temperature, C 36.6 Deg C General: No acute distress, Alert and talking appropriatly, he doesn't remember events clearly. HENT: Normocephalic. Neck: Supple. Respiratory: Respirations are non-labored. Breath sounds: Diminished. Cardiovascular: 102 beats per minute, Regular rhythm, S1, S2, Tachycardia. Gastrointestinal: Soft, Non-tender, Non-distended, Normal bowel sounds. Integumentary: Warm, Dry, [place], incision is C/D/I. Neurologic: Alert, left sided paralysis. Psychiatric: Cooperative, Appropriate mood & affect. Review / Management Results review: NOV 29 06:05 139 108 H 34 / 102 4.4 25 0.90 \ NOV 29 06:05 \ L 9.8 / H 15.4 283 / L 29.8 \ Blood Gases (Current Encounter/Past 24 Hours) No Blood Gas Results Found (Past 24 Hours) Coagulation Results (Current Encounter/Past 24 Hours) PT 31.3 Second(s) NH 11/29/2018 06:38 PTT 27.6 Second(s) 11/28/2018 08:53 INR 3.0 NH 11/29/2018 06:38 . Impression and Plan Plan: 11/17/18 -POD#1 -MTs left in place secondary to drainage 11/18/18 -POD#2 -MTs D/C without any immediate complications and the pt tolerated well -PWs left in place 11/19/18 -POD#3 -Possible Neuro consult -Check ammonia level 11/20/18: -POD#4 -Ammonia level normal -NEURO: He was slow to wake up post op and is more lucid today but some element of confusion persists. He is able to converse but overnight he pulled in NGT out. he is requiring restraints for his own safety. CVS: Hypertensive and tachycardic. Will increase lopressor dose today. RESP: Stable. Encourage IS use. Still requiring supplemental oxygen. GI: Needs swallow study and speech evaluation before resumption of diet. Will need feeding tube placed for meds and nutritional support if he fails swallow evaulation. RENAL: Cr is stable at 0.7. HEME: [place] count is improving. HCT stable 11/21/18: -POD#5 -NEURO: He is lethargic and more arousable but still has confusion persists. He is not moving his left side either spontaneously or to commands. He is requiring restraints for his own safety. We will obtain a head CT. CVS: Hypertensive and tachycardic. Lopressor dose [...] is improving. Plt 156 today. HCT stable -CT Scan of Head without 11/22/18: -POD#6 -FEEs today -MRI -PWs D/C without any immediate complications and the pt tolerated well 11/23/18 -POD#7 -MRI of Brain: Multifocal areas restricted diffusion consistent with acute ischemic infarct. -S.Hannah. is working with pt -Pt will need inpatient rehab at the time of discharge- has sent information to [facility] -[facility] 11/24/18 -POD#8 -Awaiting [facility] -Awaiting response from [facility] 11/25/18 -POD#9 -left upper extremity venous doppler - doppler this am positive for LUE DVT - will start coumadin and heparin bridge -awaiting [facility] 11/26/18 -POD#10 -Heparin drip and coumadin for LUE DVT -Left arm swelling improved today -INR 1.1 today, INR goal 2-3 -Possibly transfer to [facility] this weekend 11/27/18: -POD#11 -Left arm swelling continues to improve -Continues on Coumadin and heparin bridge -INR: 1.4 (1.1 yesterday) goal: 2 to 3 -[facility] soon,? Tomorrow 11/28/18: -POD#12 -BP in 70s-80s this AM -He had a dark black stool and has had a couple of fluid boluses -Heparin was D/C'd and his INR is 2.0 this AM (on coumadin 5mg qd) -Hct is down to 23.6 -GI med has been consulted and he is to undergo EGD -Also some blood has been set up. -[facility] 11/29/18: -POD#13 -Upper endoscopy showed duodenal ulceration with a clot. Unable even to visualize the small pyloric ulcer. Unable to do any interventions. There was no active bleeding from the adherent clot and distal to the ulceration. The patient is to be kept in the intensive care unit. Talk to CT surgeon, Dr. Gaxiola and to the staff nurse if active bleeding. If not able to do endoscopic intervention, need a computerized tomographic angiogram and embolization or surgery. -H/H 9.8/29.8 -INR 3.0 -ASA and Coumadin D/C due to GI bleed. -Transfer [facility] EF 55-60% per echo 11/16/18 DVT Prophylaxis: SCDs Diagnosis CAD (coronary artery disease), [place] coronary artery - Admitting, Medical. Thrombocytopenia - Working, Medical. Coronary artery disease - Discharge, Medical. HTN (hypertension) - Pre-Op Diagnosis, Medical. Hypothyroidism - Pre-Op Diagnosis, Medical. Aortic insufficiency - Admitting, Medical. Aortic insufficiency - Discharge, Medical. RLS (restless legs syndrome) - Pre-Op Diagnosis, Medical. Thoracic ascending aortic aneurysm - Admitting, Medical. Thoracic ascending aortic aneurysm - Discharge, Medical. Right MCA CVA (cerebral vascular accident) - Discharge, Medical. Acute blood loss anemia - Discharge, Medical. LUE DVT (deep venous thrombosis) - Discharge, Medical. GI bleed - Discharge, Medical. documented in this encounter Plan of Treatment Not on file documented as of this encounter Visit Diagnoses Not on filedocumented in this encounter
--- OUTSIDE RECORDS SUMMARY | 2025-02-23 11:52 | XMS_ITS | Encounter Summary ---
Author Organization [employer] ([place], [place], [place], [place]) Address [address] [place] [address] Care Team Providers Care Segment Block Layer Name Role Phone Unavailable Primary Care Provider Unavailabl e Encounter Details Date Type Department Care Team (Late st Contact Info) Description 11/29/2018 Transcribed Document [facility] Family Medicine [address] [place] [address] ProviderErika MD [address] [place] [address] Social History Tobacco Use Types Packs/Day Years Used Date Smoking Tobacco: Never Assessed Sex and Gender Information Value Date Recorded Sex Assigned at Not on file Legal Sex Male 5:03 PM CDT Gender Identity Not on file Sexual Orientation Not on file documented as of this encounter Miscellaneous Notes * Cerner Conversion Note - Historical ProviderMD - 11/29/2018 5:00 AM CDT Chart Check - Review Order Profile Entered On: 11/29/2018 7:19 EDT Performed On: 11/29/2018 5:00 EDT by CHARLES LIAO RN Chart Check Chart Reviewed Date and Time : 11/29/2018 7:19 EDT Powerplans Initiated/Discontinued as Appropriate : Not applicable CHARLES LIAO RN - 11/29/2018 7:19 EDT Electronically signed by Christina Saini Conversion [employer] Measurer Cerner at 12/08/2022 12:13 PM CDT documented in this encounter Plan of Treatment Not on file documented as of this encounter Visit Diagnoses Not on filedocumented in this encounter
--- OUTSIDE RECORDS SUMMARY | 2025-02-23 11:52 | XMS_ITS | Encounter Summary ---
Author Organization [employer] ([place], [place], [place], [place]) Address [address] [place] [address] Care Team Providers Care Application Counselor Name Role Phone Unavailable Primary Care Provider Unavailabl e Encounter Details Date Type Department Care Team (Late st Contact Info) Description 11/29/2018 Transcribed Document [facility] Family Medicine [address] [place] [address] ProviderErika MD [address] [place], [place] [phone] Social History Tobacco Use Types Packs/Day Years Used Date Smoking Tobacco: Never Assessed Sex and Gender Information Value Date Recorded Sex Assigned at Not on file Legal Sex Male 5:03 PM CDT Gender Identity Not on file Sexual Orientation Not on file documented as of this encounter Miscellaneous Notes * Cerner Conversion Note - Erika ProviderMD - 11/29/2018 1:37 PM CDT Discharge Summary, PEWTER FINISHER Entered On: 11/29/2018 13:40 EDT Performed On: 11/29/2018 13:37 EDT by JOSSUE RODRÍGUEZ PEWTER FINISHER Discharge Notation. PEWTER FINISHER Dysphagia Treatment After Discharge : No Discharge Diet : Regular Discharge Liquids : Thin Discharge Summary Comment, PEWTER FINISHER : Attempted to see pt for language tx. Pt's and son are present who state that pt has returned entirely to baseline from a language and cognitive perspective. They state that pt currently has no deficits. Will go ahead and sign off in accordance to and son's wishes. Reviewed MBS results from last week. Nothing further for ST to offer. JOSSUE RODRÍGUEZ SLP - 11/29/2018 13:37 EDT LTG Lang/Comm/Cog LTG PEWTER FINISHER Operations Supervisor 2Nd Shift Goal 1 Operations Supervisor 2Nd Shift Goal 2 Goals : Improved spoken language expression at the time of discharge Improved auditory/spoken language comprehension at the time of discharge Status : Discontinue Discontinue JOSSUE RODRÍGUEZ SLP - 11/29/2018 13:37 EDT JOSSUE RODRÍGUEZ, [facility] - 11/29/2018 13:37 EDT STG Lang_Comm_Cog Motor Speech STG Grid Goal #1 Activity : Improve intelligibility of speech Status : Discontinue JOSSUE RODRÍGUEZ [facility] - 11/29/2018 13:37 EDT Auditory Comprehension Grid Goal #1 Goal #2 Activity : Follow directions, 3 step commands simple Comprehend paragraph complex Status : Discontinue Discontinue JOSSUE RODRÍGUEZ [facility] - 11/29/2018 13:37 EDT JOSSUE RODRÍGUEZ, [facility] - 11/29/2018 13:37 EDT Verbal Expression STG Grid Goal #1 Activity : Generate items in a category Status : Discontinue JOSSUE RODRÍGUEZ [employer] FINISHER - 11/29/2018 13:37 EDT Reading Comprehension STG Grid Goal #1 Activity : Visual perception deficits Status : Discontinue JOSSUE RODRÍGUEZ [facility] - 11/29/2018 13:37 EDT Attention STG Grid Goal #1 Activity : Other: Probe Status : Goal met Date Met : 11/24/2018 EDT JOSSUE RODRÍGUEZ [facility] - 11/29/2018 13:37 EDT Memory STG Grid Goal #1 Goal #2 Goal #3 Activity : Other: Probe Improve short term functional delayed Improve short term working memory Status : Goal met Discontinue Discontinue Date Met : 11/24/2018 EDT JOSSUE RODRÍGUEZ, [facility] - 11/29/2018 13:37 EDT JOSSUE RODRÍGUEZ, [facility] - 11/29/2018 13:37 EDT JOSSUE RODRÍGUEZ, [facility] - 11/29/2018 13:37 EDT Problem Solving STG Grid Goal #1 Goal #2 Goal #3 Goal #4 Activity : Generate a list of simple/concrete items Label items in a category, complex/abstract Other: Probe Improve simple problem solving Status : Discontinue Discontinue Goal met Discontinue Date Met : 11/24/2018 EDT JOSSUE RODRÍGUEZ, [facility] - 11/29/2018 13:37 EDT JOSSUE RODRÍGUEZ, [facility] - 11/29/2018 13:37 EDT JOSSUE RODRÍGUEZ, [facility] - 11/29/2018 13:37 EDT JOSSUE RODRÍGUEZ, PEWTER FINISHER - 11/29/2018 13:37 EDT Swallow Plan/Goals Swallow LTG Grid PEWTER FINISHER Operations Supervisor 2Nd Shift Goal #1 PEWTER FINISHER Fpc Goal #2 Swallow LTG : Establish safe oral diet without aspiration Improve swallowing function for oral intake Status : Goal met Goal met Date Met : 11/22/2018 EDT 11/26/2018 EDT JOSSUE RODRÍGUEZ SLP - 11/29/2018 13:37 EDT JOSSUE RODRÍGUEZ SLP - 11/29/2018 13:37 EDT Swallow Goals Grid Goal #1 Goal [...] EDT 11/26/2018 EDT Status : Goal met Goal met Discontinue Goal met Date Met : 11/22/2018 EDT 11/26/2018 EDT 11/26/2018 EDT JOSSUE RODRÍGUEZ SLP - 11/29/2018 13:37 EDT JOSSUE RODRÍGUEZ SLP - 11/29/2018 13:37 EDT JOSSUE RODRÍGUEZ SLP - 11/29/2018 13:37 EDT JOSSUE RODRÍGUEZ SLP - 11/29/2018 13:37 EDT documented in this encounter Plan of Treatment Not on file documented as of this encounter Visit Diagnoses Not on filedocumented in this encounter
--- OUTSIDE RECORDS SUMMARY | 2025-02-23 11:52 | XMS_ITS | Encounter Summary ---
Author Organization [employer] ([place], [place], [place], [place]) Address [address] [place] [address] Care Team Providers Care Entry Level Name Role Phone Unavailable Primary Care Provider Unavailabl e Encounter Details Date Type Department Care Team (Late st Contact Info) Description 11/17/2018 Transcribed Document [facility] Family Medicine [address] [place] [address] ProviderErika MD [address] [place], [place] [phone] Social History Tobacco Use Types Packs/Day Years Used Date Smoking Tobacco: Never Assessed Sex and Gender Information Value Date Recorded Sex Assigned at Not on file Legal Sex Male 5:03 PM CDT Gender Identity Not on file Sexual Orientation Not on file documented as of this encounter Miscellaneous Notes * Cerner Conversion Note - Erika Jose MD - 11/17/2018 8:35 AM CDT Patient: DOTTIE VILLASENOR Age: 78 years Sex: Male : 1940 Associated Diagnoses: CAD (coronary artery disease), [place] coronary artery; Thrombocytopenia; Coronary artery disease; HTN (hypertension); Hypothyroidism; Aortic insufficiency; RLS (restless legs syndrome); Thoracic ascending aortic aneurysm Author: MARIEL ROBLES PA Basic Information POD#1 S/P Resection and Grafting of Ascending Thoracic [...] asked him if he could hear us. Health Status Allergies: Allergies (2) Active Reaction No Known Allergies None Documented No Known Medication Allergies None Documented Current medications: Ntg 20mcg/min Insulin 1U/hr Physical Examination Intake and Output 24 hour intake: Total 3,245 ml 24 hour output: Urinary catheter 2,070 ml, Total 3,020 ml MT 500ml / 12 hours (950/24hr) VS/Measurements Vital Measurements 11/17/2018 7:44 EDT Heart Rate Monitored 86 bpm Oxygen Saturation 100 % Oxygen Therapy Mode Nasal cannula Oxygen Flow Rate 3 Liter/Min 11/17/2018 7:00 EDT Temperature, Celsius 38 Deg C Clinical Temperature, F 100.4 Deg F Systolic BP, Arterial Line 1 155 mmHg HI Diastolic BP, Arterial Line 1 67 mmHg Mean Arterial Pressure, Line 1 93 mmHg General: No acute distress, Not alert and oriented. HENT: Normocephalic. Neck: Supple. Respiratory: Respirations are non-labored. Breath sounds: Diminished. Cardiovascular: Normal rate, 86 beats per minute, Regular rhythm, S1, S2, No edema. Musculoskeletal: Lower extremity exam: Palpable bilateral DP pulses. Integumentary: Warm, Dry, [place]. Neurologic: Not alert. Review / Management Results review: NOV 17 03:12 142 110 20 / H 115 4.1 25 1.10 \ NOV 17 03:12 \ L 10.7 / H 15.3 L 112 / L 32.1 \ Blood Gases (Current Encounter/Past 24 Hours) pH Art 7.48 MT 11/17/2018 05:17 pCO2 Art 31.2 LOW 11/17/2018 [...] 43.0 11/16/2018 12:06 pO2 Art POC 433.0 MT 11/16/2018 12:06 HCO3 Art POC 28.5 MT 11/16/2018 12:06 tCO2 Art POC 30.0 MT 11/16/2018 12:06 BE Art POC 4.0 MT 11/16/2018 12:06 sO2 Art POC >99.9 MT 11/16/2018 12:06 ABG Num of Draw Attempts 1 11/17/2018 05:17 Coagulation Results (Current Encounter/Past 24 Hours) No Coagulation Results Found (Past 24 Hours) . Impression and Plan Plan: 11/17/18 -POD#1 -MTs left in place secondary to drainage EF 55-60% per echo 11/16/18 DVT Prophylaxis: SCDs Diagnosis CAD (coronary artery disease), [place] coronary artery - Admitting, Medical. Thrombocytopenia - Working, Medical. Coronary artery disease - Discharge, Medical. HTN (hypertension) - Pre-Op Diagnosis, Medical. Hypothyroidism - Pre-Op Diagnosis, Medical. Aortic insufficiency - Admitting, Medical. Aortic insufficiency - Discharge, Medical. RLS (restless legs syndrome) - Pre-Op Diagnosis, Medical. Thoracic ascending aortic aneurysm - Admitting, Medical. Thoracic ascending aortic aneurysm - Discharge, Medical. documented in this encounter Plan of Treatment Not on file documented as of this encounter Visit Diagnoses Not on filedocumented in this encounter
--- OUTSIDE RECORDS SUMMARY | 2025-02-23 11:52 | XMS_ITS | Encounter Summary ---
Author Organization [employer] ([place], [place], [place], [place]) Address [address] [place] [address] Care Team Providers Care Lace Winder Name Role Phone Unavailable Primary Care Provider Unavailabl e Encounter Details Date Type Department Care Team (Late st Contact Info) Description 11/23/2018 Transcribed Document [facility] [place] [address] [place] [address] ProviderErika MD [address] [place] [address] Social History Tobacco Use Types Packs/Day Years Used Date Smoking Tobacco: Never Assessed Sex and Gender Information Value Date Recorded Sex Assigned at Not on file Legal Sex Male 5:03 PM CDT Gender Identity Not on file Sexual Orientation Not on file documented as of this encounter Miscellaneous Notes * Cerner Conversion Note - Erika ProviderMD - 11/23/2018 3:21 PM CDT Treatment Intervention, OT Entered On: 11/30/2018 15:29 EDT Performed On: 11/30/2018 15:16 EDT by AUDREY GRANDE, OTR/L General Information, OT Visit Type, OT [...] unspecified 11/17/2018 00:00 Atherosclerotic heart disease of [place] coronary artery without angina pectoris 11/17/2018 00:00 Essential (primary) hypertension 11/17/2018 00:00 Hypothyroidism, unspecified 11/17/2018 00:00 Nonrheumatic aortic (valve) insufficiency 11/17/2018 00:00 Restless legs syndrome 11/17/2018 00:00 Thoracic aortic aneurysm, without rupture 11/17/2018 00:00 Thrombocytopenia, unspecified 11/16/2018 00:00 Atherosclerotic heart disease of [place] coronary artery without angina pectoris 11/16/2018 00:00 Nonrheumatic aortic (valve) insufficiency 11/16/2018 00:00 Thoracic aortic aneurysm, without rupture Admission Date : 11/16/2018 06:45 Assisted by, OT : Nursing Personal Devices : Personal Devices No Devices Recorded Assistive Devices : Assistive Devices No Devices Recorded AUDREY GRANDE OTR/Ginny - 11/30/2018 15:25 EDT General Status Patient Received Status : Up in chair Treatment Start Time : 11/30/2018 15:03 EDT Patient Left Status : Supine in bed, RN/PCT informed, All needs met and within reach RN/PCT Informed Comment : TONJA Franco Treatment End Time : 11/30/2018 15:16 EDT Treatment Time : 13 Minute(s) AUDREY GRANDE OTR/Ginny - 11/30/2018 15:25 EDT Functional Mobility Mobility Grid Sit to Stand : Rehab Maximal assistance (Comment: x2 [AUDREY GRANDE OTR/Ginny - 11/30/2018 15:25 EDT] ) Chair to Bed : Rehab Maximal assistance (Comment: x2 [AUDREY GRANDE OTR/Ginny - 11/30/2018 15:25 EDT] ) Stand to Sit : Rehab Maximal assistance (Comment: x2 [AUDREY GRANDE OTR/Ginny - 11/30/2018 15:25 EDT] ) Sit to Supine : Rehab Maximal assistance (Comment: x2 [AUDREY GRANDE OTR/Ginny - 11/30/2018 15:25 EDT] ) AUDREY GRANDE OTR/Ginny - 11/30/2018 15:25 EDT Plan of Care, OT OT Tx Plan/Goals Established w Patient : Yes AUDREY GRANDE OTR/Ginny - 11/30/2018 15:25 EDT Intermediate Goals, OT Self Feeding LTG Grid Goal #1 Activity : Self feeding Assist : Independent, modified Date to Meet : 12/07/2018 EDT Goal Status : Progressing, continue AUDREY GRANDE OTR/L - 11/30/2018 15:25 EDT Grooming LTG Grid Goal #1 Activity : Grooming Assist : Assist, minimal Date to Meet : 12/07/2018 EDT Goal Status : Initial goal AUDREY GRANDE OTR/L - 11/30/2018 15:25 EDT Dressing, Upper Body LTG Grid Goal #1 Activity : Dressing, Upper Body Assist : Assist, minimal Date to Meet : 12/07/2018 EDT Goal Status : Initial goal AUDREY GRANDE OTR/L - 11/30/2018 15:25 EDT Toilet Transfer LTG Grid Goal #1 Activity : Toilet Transfer, Stand Pivot Sit Assist : Assist, moderate Date to Meet : 12/07/2018 EDT Goal Status : Progressing, continue AUDREY GRANDE OTR/L - 11/30/2018 15:25 EDT Bed Mobility/ Bed Transfer LTG Grid Goal #1 Activity : Bed Mobility/Bed Transfer Assist : Assist, moderate Date to Meet : 12/07/2018 EDT Goal Status : Progressing, continue AUDREY GRANDE OTR/L - 11/30/2018 15:25 EDT Other LTG Grid Goal #1 Goal #2 Goal #3 Goal : pt to participate in AAROM of L UE Pt to complete self ROM of L UE Pt to sit EOB 5 minutes with supervision and cueing during functional task Date to Meet : 12/07/2018 EDT 12/07/2018 EDT 12/07/2018 EDT Goal Status : Progressing, continue Initial goal Progressing, continue AUDREY GRANDE OTR/L - 11/30/2018 15:25 EDT AUDREY GRANDE OTR/L - 11/30/2018 15:25 EDT AUDREY GRANDE OTR/L - 11/30/2018 15:25 EDT Treatment Note Subjective Comment : Pt agreeable. Patient's Response to Treatment : pt given UE and LE excercises. Educated pt on quad sets in supine. Pt's L LE knee is contracted. When asked how long it has been that why, pt stating he is not sure. Family states he has been in the hospital 2 weeks. Pt had a stroke s/p CABG. Additional Objective Information : Pt up in chair, just finished lunch. Family present. MaxAx2 chair to bed transfer, HIRE CAR DRIVER. RN assisting. Pt's L UE very weak. Pt's L LE very weak. MaxAx2 sit to supine and to scoot pt up in bed. Assessment : Progressing. AUDREY GRANDE OTR/L - 11/30/2018 15:25 EDT Pain Assessment Pain Scaled Used : 0-10 Pain scale Pain Score Post-Intervention. : 0 AUDREY GRANDE OTR/L - 11/30/2018 15:25 EDT Image 1 - Images currently included in the form version of this document have not been included in the text rendition version of the form. [facility] OT Charges OT Ther Activities Ea 15 Min : 1 AUDREY GRANDE OTR/Ginny - 11/30/2018 15:25 EDT Electronically signed by Christina Saini Conversion Hostess Party Sales Representative Cerner at 12/12/2022 8:26 AM CDT documented in this encounter Plan of Treatment Not on file documented as of this encounter Visit Diagnoses Not on filedocumented in this encounter
--- OUTSIDE RECORDS SUMMARY | 2025-02-23 11:52 | XMS_ITS | Encounter Summary ---
Author Organization [employer] ([place], [place], [place], [place]) Address [address] [place] [address] Care Team Providers Care Experimental Flight Test Mechanic Name Role Phone Unavailable Primary Care Provider Unavailabl e Encounter Details Date Type Department Care Team (Late st Contact Info) Description 11/22/2018 Transcribed Document [facility] [place] Family Medicine [address] [place] [address] ProviderErika MD [address] [place], [place] [id number] Social History Tobacco Use Types Packs/Day Years Used Date Smoking Tobacco: Never Assessed Sex and Gender Information Value Date Recorded Sex Assigned at Not on file Legal Sex Male 5:03 PM CDT Gender Identity Not on file Sexual Orientation Not on file documented as of this encounter Miscellaneous Notes * Cerner Conversion Note - Erika Jose MD - 11/22/2018 8:34 AM CDT Patient: DOTTIE VILLASENOR Age: 78 years Sex: Male : 1940 Associated Diagnoses: CAD (coronary artery disease), [place] coronary artery; Thrombocytopenia; Coronary artery disease; HTN (hypertension); Hypothyroidism; Aortic insufficiency; RLS (restless legs syndrome); Thoracic ascending aortic aneurysm Author: MARIEL ROBLES PA Basic Information POD#6 S/P Resection and Grafting of Ascending Thoracic [...] face when his bipap mask was on. : The pt has progressed over the weekend. His voice is much stronger. He is moving his right side. Left side is weak. Review of Systems Constitutional: Weakness. Health Status Allergies: Allergies (2) Active Reaction No Known Allergies None Documented No Known Medication Allergies None Documented Physical Examination Intake and Output 24 hour intake: Total 305 ml 24 hour output: Total 2275 ml VS/Measurements Vital Measurements 11/22/2018 7:58 EDT Oxygen Saturation 97 % Oxygen Therapy Mode Nasal cannula Oxygen Flow Rate 2 Liter/Min 11/22/2018 5:00 EDT Temperature, Celsius 37.7 Deg C Clinical Temperature, F 99.9 Deg F Heart Rate Monitored 98 bpm Systolic Blood Pressure 126 mmHg Diastolic Blood Pressure 76 mmHg Mean Arterial Pressure (MAP)-BMDI 94 Oxygen Saturation 98 % General: Alert and oriented, No acute distress. HENT: Normocephalic. Neck: Supple. Respiratory: Respirations are non-labored. Breath sounds: Diminished. Cardiovascular: Normal rate, 98 beats per minute, Regular rhythm, S1, S2, No edema. Integumentary: Warm, Dry, [place], incision is C/D/I. Neurologic: Alert, left sided weakness. Orientation: To person, To place, To time. Psychiatric: Cooperative, Appropriate mood & affect. Review / Management Results review: NOV 22 05:11 137 104 21 / H 142 4.3 28 0.70 \ NOV 22 05:11 \ L 11.6 / H 10.3 195 / L 34.7 \ Blood Gases (Current Encounter/Past 24 Hours) No Blood Gas Results Found (Past 24 Hours) Coagulation Results (Current Encounter/Past 24 Hours) No Coagulation Results Found (Past 24 Hours) . Impression and Plan Plan: 11/17/18 -POD#1 -MTs left in place secondary to drainage 11/18/18 -POD#2 -MTs D/C without any immediate complications and the pt tolerated well -PWs left in place 11/19/18 -POD#3 -Possible Neuro consult -Check ammonia level 11/20/18: -Ammonia level normal -NEURO: He was slow [...] Pletelet count is improving. HCT stable 11/21/18: -NEURO: He is lethargic and more arousable [...] stable -CT Scan of Head without 11/22/18: -FEEs today -MRI -PWs D/C without any immediate complications and the pt tolerated well EF 55-60% per echo 11/16/18 DVT Prophylaxis: SCDs Diagnosis CAD (coronary artery disease), [place] coronary artery - Admitting, Medical. Thrombocytopenia - Working, Medical. Coronary artery disease - Discharge, Medical. HTN (hypertension) - Pre-Op Diagnosis, Medical. Hypothyroidism - Pre-Op Diagnosis, Medical. Aortic insufficiency - Admitting, Medical. Aortic insufficiency - Discharge, Medical. RLS (restless legs syndrome) - Pre-Op Diagnosis, Medical. Thoracic ascending aortic aneurysm - Admitting, Medical. Thoracic ascending aortic aneurysm - Discharge, Medical. Electronically signed by Parveen, [facility] Conversion Independent Film Maker Cerner at 12/08/2022 12:25 PM CDT documented in this encounter Plan of Treatment Not on file documented as of this encounter Visit Diagnoses Not on filedocumented in this encounter
--- OUTSIDE RECORDS SUMMARY | 2025-02-23 11:52 | XMS_ITS | Encounter Summary ---
Author Organization [email or web address] ([place], [place], [place], [place]) Address [address] [place] [address] Care Team Providers Care Insurance Commissioner Name Role Phone Unavailable Primary Care Provider Unavailabl e Encounter Details Date Type Department Care Team (Late st Contact Info) Description 11/30/2018 Transcribed Document [facility] [place] Family Medicine [address] [place] [address] ProviderErika MD [address] [place] [address] Social History Tobacco Use Types Packs/Day Years Used Date Smoking Tobacco: Never Assessed Sex and Gender Information Value Date Recorded Sex Assigned at Not on file Legal Sex Male 5:03 PM CDT Gender Identity Not on file Sexual Orientation Not on file documented as of this encounter Miscellaneous Notes * Cerner Conversion Note - Erika Jose MD - 11/30/2018 12:24 PM CDT Patient: JORGE VILLASENOR Age: 78 Years Sex: Male : 1940 Subjective Patient continues to have left sided weakness. Since I last saw him, he developed a GI bleed and yesterday underwent an EGD which revealed a duodenal ulcer . A metal clip was placed at one side of the ulcer but another clip could not be placed at the other end of the ulcer. Patient has been started on Carafate and and Cytotec. Review of Systems Heme - Due to GI bleed, patient has been taken off Coumadin and aspirin. Dr. Perez is recommending that antiplatelets be held for one week from yesterday. Objective Vitals & Measurements T: 36.6 ??C TMIN: 36.3 ??C TMAX: 36.8 ??C HR: 97(Monitored) RR: 18 BP: 119/72 SpO2: 94% HT: 185.42 cm WT: 74.57 kg BMI: 21.69 Physical Exam Speech - fluent Motor - left sided hemiparesis. Assessment/Plan 78 year old male who underwent [...] suggests right parietal ischemia. A cranial MRI shows areas of bilateral acute ischemia , the most clinically relevant areas of ischemia being in the cortex of the right frontal and parietal lobes. A perioperative embolus is the most likely cause of the strokes. He also was started on anticoagulation earlier this month for a left upper extremity DVT . However, he has now been taken off anticoagulants and antiplatelet agents due to a bleeding duodenal ulcer. Recommend : a) When able , resume anti platelet agent and/ or anti coagulant. b) At discharge he should follow up with an outpatient neurologist and not drive until released by a physician. If patient is still here next week, I will check back next week. Medications Inpatient acetaminophen, 325 mg= 1 Tab, Oral, Q4H, PRN Avodart, 0.5 mg= 1 Cap, Oral, AC Dinner calcium chloride Carafate, 1 Gram= 10 mL, Oral, AC and at Bedtime Chap Stick, 1 Application, Topical, Q1H, PRN Colace, 100 mg= 1 Cap, Oral, BID Cytotec, 100 mcg= 1 Tab, Oral, QID Dulcolax Laxative, 10 mg= 1 Supp, Rectal, 1-Time, PRN DuoNeb 0.5 mg-2.5 mg/3 mL inhalation solution, 3 mL, Nebulized Inhalation , RT_Q4H, PRN hydrALAZINE, 10 mg= 0.5 mL, IV Push, Q6H, PRN Lactated Ringers Injection intravenous solution 1,000 mL, 1000 mL, IntraVENous lidocaine 1% injectable solution, 0.5 mL, IntraDermal, 1-Time, PRN losartan, 100 mg= 2 Tab, Oral, Daily metoprolol tartrate, 50 mg= 1 Tab, Oral, Q12H Milk of Magnesia 8% oral suspension, 30 mL, Oral, Q8H, PRN Normal Saline Flush, 10 mL, IV Push, See Comment, PRN Normal Saline Flush, 10 mL, IV Push, Q8H Norvasc, 10 mg= 1 Tab, Oral, Daily pantoprazole, 40 mg= 1 Tab, Oral, BID Reglan, 5 mg= 1 mL, IV Push, Q6H, PRN rOPINIRole, 2 mg= 2 Tab, Oral, BID saliva substitutes, 1 [place], Buccal, Q2H, PRN Senokot, 17.2 mg= 2 Tab, Oral, BID Synthroid, 50 mcg= 2.5 mL, IV Push, Q48H Zofran, 4 mg= 2 mL, IV Push, Q4H, PRN documented in this encounter Plan of Treatment Not on file documented as of this encounter Visit Diagnoses Not on filedocumented in this encounter
--- OUTSIDE RECORDS SUMMARY | 2025-02-23 11:52 | XMS_ITS | Encounter Summary ---
Author Organization [employer] ([place], [place], [place], [place]) Address [address] [place] [address] Care Team Providers Care Cleaner Signs Name Role Phone Unavailable Primary Care Provider Unavailabl e Encounter Details Date Type Department Care Team (Late st Contact Info) Description 11/22/2018 Transcribed Document [facility] [place] [address] [place] [address] ProviderErika MD [address] [place] [address] Social History Tobacco Use Types Packs/Day Years Used Date Smoking Tobacco: Never Assessed Sex and Gender Information Value Date Recorded Sex Assigned at Not on file Legal Sex Male 5:03 PM CDT Gender Identity Not on file Sexual Orientation Not on file documented as of this encounter Miscellaneous Notes * Cerner Conversion Note - Erika ProviderMD - 11/22/2018 11:16 AM CDT Discharge Instructions Entered On: 11/22/2018 11:16 EDT Performed On: 11/22/2018 11:16 EDT by JAY JAY CRESPO MD-NEU DC Instructions D Community Services : Outpt Cardiac Rehab [facility] [phone] F [phone] They will call pt w/ appt time. SUZANNA HAINES, Fast Food Restaurant Manager - 11/30/2018 15:30 EDT Driving After Discharge : Do not drive, Other: No driving or operating heavy machinery until released by a physician. JAY JAY CRESPO MD-NEU - 11/22/2018 11:16 EDT documented in this encounter Plan of Treatment Not on file documented as of this encounter Visit Diagnoses Not on filedocumented in this encounter
--- OUTSIDE RECORDS SUMMARY | 2025-02-23 11:52 | XMS_ITS | Encounter Summary ---
Author Organization [employer] ([place], [place], [place], [place]) Address [address] [place] [address] Care Team Providers Care Law Firm Receptionist Name Role Phone Unavailable Primary Care Provider Unavailabl e Encounter Details Date Type Department Care Team (Late st Contact Info) Description 11/30/2018 Transcribed Document [facility] [place] [address] [place] [address] ProviderErika MD [address] [place], [place] [id number] Social History Tobacco Use Types Packs/Day Years Used Date Smoking Tobacco: Never Assessed Sex and Gender Information Value Date Recorded Sex Assigned at Not on file Legal Sex Male 5:03 PM CDT Gender Identity Not on file Sexual Orientation Not on file documented as of this encounter Miscellaneous Notes * Cerner Conversion Note - Erika Jose MD - 11/30/2018 8:51 AM CDT Patient: JORGE VILLASENOR Age: 78 years Sex: Male : 1940 Associated Diagnoses: CAD (coronary artery disease), [place] coronary artery; Thrombocytopenia; Coronary artery disease; HTN (hypertension); Hypothyroidism; Aortic insufficiency; RLS (restless legs syndrome); Thoracic ascending aortic aneurysm; Right MCA CVA (cerebral vascular accident); Acute blood loss anemia; LUE DVT (deep venous thrombosis); GI bleed Author: GISSEL ZHANG PA Basic Information POD#14 S/P Resection and Grafting of Ascending Thoracic [...] on protonix gtt. He voices no complaints. 11/30/18: No complaints, transferred back to tele yesterday Review of Systems Constitutional: Weakness. Respiratory: No shortness of breath. Cardiovascular: No chest pain. Neurologic: left side paralysis. Health Status Allergies: Allergic Reactions (Selected) No Known Allergies No Known Medication Allergies, Allergies (2) Active Reaction No Known Allergies None Documented No Known Medication Allergies None Documented Physical Examination Intake and Output 24 hour intake: Total 140 ml 24 hour output: Total 225 ml VS/Measurements Vital Measurements 11/30/2018 6:10 EDT Temperature, Fahrenheit 97.3 Deg F Heart Rate Monitored 89 bpm Systolic Blood Pressure 116 mmHg Diastolic Blood Pressure 61 mmHg Oxygen Saturation 94 % Oxygen Therapy Mode Nasal cannula Oxygen Flow Rate 2 Liter/Min General: No acute distress, Alert and talking appropriatly, he doesn't remember events clearly. HENT: Normocephalic. Neck: Supple. Respiratory: Respirations are non-labored. Breath sounds: Diminished. Cardiovascular: Normal rate, 96 beats per minute, Regular rhythm, S1, S2. Gastrointestinal: Soft, Non-tender, Non-distended, Normal bowel sounds. Integumentary: Warm, Dry, [place], incision is C/D/I. Neurologic: Alert, left sided paralysis. Psychiatric: Cooperative, Appropriate mood & affect. Review / Management Results review: NOV 30 06:50 136 105 H 24 / 92 4.1 25 0.80 \ NOV 30 06:50 \ L 8.8 / H 11.8 288 / L 26.3 \ Blood Gases (Current Encounter/Past 24 Hours) No Blood Gas Results Found (Past 24 Hours) Coagulation Results (Current Encounter/Past 24 Hours) PT 27.4 Second(s) CA 11/30/2018 07:23 INR 2.6 CA 11/30/2018 07:23 . Impression and Plan Plan: 11/17/18 -POD#1 [...] restricted diffusion consistent with acute ischemic infarct. -S.T. is working with pt -Pt will need inpatient rehab at the time of discharge- CM has sent information to [facility]18 -POD#8 -[facility] -Awaiting response from [facility] 11/25/18 -POD#9 -left upper extremity venous doppler - doppler this am positive for LUE DVT - will start coumadin and heparin bridge -awaiting [facility] 11/26/18 -POD#10 -Heparin drip and coumadin for LUE DVT -Left arm swelling improved today -INR 1.1 today, INR goal 2-3 -Possibly transfer to [facility] this weekend 11/27/18: -POD#11 -Left arm swelling continues to improve -Continues on Coumadin and heparin bridge -INR: 1.4 (1.1 yesterday) goal: 2 to 3 -[facility] soon,? Tomorrow 11/28/18: -POD#12 -BP in 70s-80s this AM -He had a dark black stool and has had a couple of fluid boluses -Heparin was D/C'd and his INR is 2.0 this AM (on coumadin 5mg qd) -Hct is down to 23.6 -GI med has been consulted and he is to undergo EGD -Also some blood has been set up. -Transferred to [facility] 11/29/18: -POD#13 -Upper endoscopy showed duodenal ulceration [...] D/C due to GI bleed. -[facility] 11/30/18 POD # 14 EGD yesterday - duodenal ulceration with clot, no active bleeding and no intervention performed INR trending down, off coumadin and heparin Speech signed off yesterday - speech and cognition back to baseline Watch INR and [facility] upon discharge EF 55-60% per echo 11/16/18 DVT Prophylaxis: SCDs Diagnosis CAD (coronary artery disease), [place] coronary artery - Admitting, Medical. Thrombocytopenia - [...] Discharge, Medical. GI bleed - Discharge, Medical. Electronically signed by Interface, [facility] Conversion Varnish Blender Cerner at 12/08/2022 12:34 PM CDT documented in this encounter Plan of Treatment Not on file documented as of this encounter Visit Diagnoses Not on filedocumented in this encounter
--- OUTSIDE RECORDS SUMMARY | 2025-02-23 11:52 | XMS_ITS | Encounter Summary ---
Author Organization [employer] ([place], [place], [place], [place]) Address [address] [place] [address] Care Team Providers Care Sterile Instrument Technician Name Role Phone Unavailable Primary Care Provider Unavailabl e Encounter Details Date Type Department Care Team (Late st Contact Info) Description 11/22/2018 Transcribed Document [facility] [place] Family Medicine [address] [place] [address] ProviderErika MD [address] [place] [address] Social History Tobacco Use Types Packs/Day Years Used Date Smoking Tobacco: Never Assessed Sex and Gender Information Value Date Recorded Sex Assigned at Not on file Legal Sex Male 5:03 PM CDT Gender Identity Not on file Sexual Orientation Not on file documented as of this encounter Miscellaneous Notes * [employer]ner Conversion Note - Historical ProviderMD - 11/22/2018 12:18 PM CDT MARKETING CONTENT COORDINATOR Attempt to Treat Entered On: 11/22/2018 12:20 EDT Performed On: 11/22/2018 12:18 EDT by JOSSUE RODRÍGUEZ SLP Attempt to Treat Inability to Treat Comment : New orders received from Neurologist. ST is currently following pt for dysphagia. Will await neuro dx for full communication JOSSUE Mccarthy, MARKETING CONTENT COORDINATOR - 11/22/2018 12:18 EDT documented in this encounter Plan of Treatment Not on file documented as of this encounter Visit Diagnoses Not on filedocumented in this encounter
--- OUTSIDE RECORDS SUMMARY | 2025-02-23 11:52 | XMS_ITS | Encounter Summary ---
Author Organization [employer] ([place], [place], [place], [place]) Address [address] [place] [address] Care Team Providers Care Board Design Engineer Name Role Phone Unavailable Primary Care Provider Unavailabl e Encounter Details Date Type Department Care Team (Late st Contact Info) Description 11/22/2018 Transcribed Document [facility] [place] [address] [place] [address] ProviderErika MD [address] [place] [address] Social History Tobacco Use Types Packs/Day Years Used Date Smoking Tobacco: Never Assessed Sex and Gender Information Value Date Recorded Sex Assigned at Not on file Legal Sex Male 5:03 PM CDT Gender Identity Not on file Sexual Orientation Not on file documented as of this encounter Miscellaneous Notes * [employer]ner Conversion Note - Historical ProviderMD - 11/22/2018 5:00 AM CDT Chart Check - Review Order Profile Entered On: 11/22/2018 6:15 EDT Performed On: 11/22/2018 5:00 EDT by Amanda Sigala RN Chart Check Chart Reviewed Date and Time : 11/22/2018 6:15 EDT Powerplans Initiated/Discontinued as Appropriate : Yes All Active Orders Reviewed : Yes Amanda Sigala RN - 11/22/2018 6:15 EDT documented in this encounter Plan of Treatment Not on file documented as of this encounter Visit Diagnoses Not on filedocumented in this encounter
--- OUTSIDE RECORDS SUMMARY | 2025-02-23 11:52 | XMS_ITS | Encounter Summary ---
Author Organization [employer] ([place], [place], [place], [place]) Address [address] [place] [address] Care Team Providers Care Powder Core Tester Name Role Phone Unavailable Primary Care Provider Unavailabl e Encounter Details Date Type Department Care Team (Late st Contact Info) Description 11/29/2018 Transcribed Document [facility] [place] Family Medicine [address] [place] [address] ProviderErika MD [address] [place], [place] [id number] Social History Tobacco Use Types Packs/Day Years Used Date Smoking Tobacco: Never Assessed Sex and Gender Information Value Date Recorded Sex Assigned at Not on file Legal Sex Male 5:03 PM CDT Gender Identity Not on file Sexual Orientation Not on file documented as of this encounter Miscellaneous Notes * Cerner Conversion Note - Historical ProviderMD - 11/29/2018 2:00 AM CDT Certified Retinal Angiographer Details Entered On: 11/29/2018 1:39 EDT Performed On: 11/29/2018 2:00 EDT by CHARLES LIAO, RN Order Details Transport Mode Order Detail : Stretcher/Gurney Isolation Precautions Order Detail : Contact precautions Order Detail : N/A IV Order Detail : 1 Oxygen Order Detail : 0 Nurse Collect Order Detail : 1 Lift/Transfer : Maximal assist Central Line Order Detail : No Room Service : Not Appropriate Arterial Line : No CHARLES LIAO, RN - 11/29/2018 1:39 EDT documented in this encounter Plan of Treatment Not on file documented as of this encounter Visit Diagnoses Not on filedocumented in this encounter
--- OUTSIDE RECORDS SUMMARY | 2025-02-23 11:52 | XMS_ITS | Encounter Summary ---
Author Organization [employer] ([place], [place], [place], [place]) Address [address] [place] [address] Care Team Providers Care Manager Gyn Name Role Phone Unavailable Primary Care Provider Unavailabl e Encounter Details Date Type Department Care Team (Late st Contact Info) Description 11/18/2018 Transcribed Document [facility] [place] [address] [place] [address] ProviderErika MD [address] [place] [address] Social History Tobacco Use Types Packs/Day Years Used Date Smoking Tobacco: Never Assessed Sex and Gender Information Value Date Recorded Sex Assigned at Not on file Legal Sex Male 5:03 PM CDT Gender Identity Not on file Sexual Orientation Not on file documented as of this encounter Miscellaneous Notes * Cerner Conversion Note - Erika ProviderMD - 11/18/2018 4:18 PM CDT Treatment Intervention, PT Entered On: 11/23/2018 10:31 EDT Performed On: 11/23/2018 10:24 EDT by SENIA QUINTANA PTA General Information, PT Visit Type, PT : Treatment Note Patient Orders : Order Date Order Ordering 11/16/2018 12:28 Consult to Physical Therapy Ordered By: JULIO CESAR CARVALHO MD-CAT 11/18/2018 16:18 PT Additional Treatment Ordered By: ROGER LEWIS, PT 11/22/2018 11:18 PT Evaluation and Treatment Ordered By: JAY JAY CRESPO MD-DIANE Active Diagnoses : 11/17/2018 00:00 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 11/17/2018 00:00 Essential (primary) hypertension 11/17/2018 00:00 Hypothyroidism, unspecified 11/17/2018 00:00 Nonrheumatic aortic (valve) insufficiency 11/17/2018 00:00 Restless legs syndrome 11/17/2018 00:00 Thoracic aortic aneurysm, without rupture 11/17/2018 00:00 Thrombocytopenia, unspecified 11/16/2018 00:00 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 11/16/2018 00:00 Nonrheumatic aortic (valve) insufficiency 11/16/2018 00:00 Thoracic aortic aneurysm, without rupture Admission Date : 11/16/2018 06:45 Co-treated by, PT : Occupational Therapist Personal Devices : Personal Devices No Devices Recorded Assistive Devices : Assistive Devices No Devices Recorded SENIA QUINTANA PTA - 11/23/2018 10:24 EDT General Status Patient Received Status : Supine in bed Treatment Start Time : 11/23/2018 8:24 EDT Patient Left Status : Up in chair, Family/Visitors at bedside, All needs met and within reach RN/PCT Informed Comment : TONJA treviño to treat. Treatment End Time : 11/23/2018 8:50 EDT Treatment Time : 26 Minute(s) SENIA QUINTANA PTA - 11/23/2018 10:24 EDT Therapeutic Exercises PT Therapeutic Exercise Grid Exercise #1 Exercises : Ankle pumps, Long arc Location : Lower extremity Laterality : Right Position : Sitting supported Reps : 10 Sets : 1 Resistance : None Assistance : Supervision Cueing : Moderate verbal cues SENIA QUINTANA PTA - 11/23/2018 10:24 EDT PT Range of Motion Grid Exercise #1 Exercise #2 Exercise : Passive Range Of Motion (PROM) Active Assistive Range Of Motion (AAROM) Location : Upper extremity Upper extremity Laterality : Left Right Position : Supine Supine Reps : 10 10 Sets : 1 1 Resistance : None None Assistance : Assist, total Assist, minimal Cueing : Moderate verbal cues Moderate verbal cues Special Technique/Precautions : patient had muscle twitch with effort SENIA QUINTANA PTA - 11/23/2018 10:24 EDT SENIA QUINTANA PTA - 11/23/2018 10:24 EDT Functional Mobility Mobility Grid Supine to Sit : Rehab Maximal assistance (Comment: x2 [SENIA QUINTANA PTA - 11/23/2018 10:24 EDT] ) Sit to Stand : Rehab Total assistance Bed to Chair : Rehab Total assistance (Comment: SPT [SENIA QUINTANA PTA - 11/23/2018 10:24 EDT] ) SENIA QUINTANA PTA - 11/23/2018 10:24 EDT Bed Comment : patient required max verbal cues for assisting therapy with transfers; increased joint stiffness in brittany LE noted and flaccid LLE SENIA QUINTANA PTA - 11/23/2018 10:24 EDT Gait Training/Assessment, PT Weight Bearing Status Maintained : Yes Weight Bearing Status : Full Gait Assistance Level : Unable to assess/activity not appropriate SENIA QUINTANA PTA - 11/23/2018 10:24 EDT Cognitive Treatment, PT Orientation : Not oriented to time SENIA QUINTANA PTA - 11/23/2018 10:24 EDT Edu Topics Physical Therapy Education Grid Role of Physical Therapy : Returns demonstration Therapeutic Exercises : Returns demonstration, Needs further teaching Transfer Training : Returns demonstration, Needs further teaching SENIA QUINTANA PTA - 11/23/2018 10:24 EDT Indication Assesessment, PT Physical Therapy Indicated : Yes SENIA QUINTANA PTA - 11/23/2018 10:24 EDT Plan of Care, PT PT Tx Plan/Goals Established w Patient : Yes SENIA QUINTANA PTA - 11/23/2018 10:24 EDT Short Term Goals Mobility/Bed Mobility STG PT Grid Goal #1 Activity : Supine to sit Assist : Assist, minimal Date to Meet : 11/25/2018 EDT Goal Status : Progressing, continue SENIA QUINTANA PTA - 11/23/2018 10:24 EDT Transfer STG Grid Goal #1 Destination : Chair, with arms Type : Stand Pivot Sit Assist : Assist, moderate Date to Meet : 11/25/2018 EDT Goal Status : Progressing, continue SENIA QUINTANA PTA - 11/23/2018 10:24 EDT Resist Coater Developer Goals Mobility/Bed Mobility LTG PT Grid Goal #1 Activity : Sit to stand Assist : Assist, minimal Date to Meet : 12/02/2018 EDT Goal Status : Intial Goal SENIA QUNITANA PTA - 11/23/2018 10:24 EDT Transfer LTG Grid Goal #1 Destination : Chair, with arms Type : Stand Pivot Sit Assist : Assist, minimal Date to Meet : 12/02/2018 EDT Goal Status : Intial Goal SENIA QUINTANA PTA - 11/23/2018 10:24 EDT Treatment Note Subjective Comment : Patient agrees to treat and wants to get up to the chair Additional Objective Information : patients breakfast tray set up for him and was able to feed himself with RUE Assessment : Patient tolerated therapy well this date and would benefit from rehab placement Plan for Treatment : Continue per POC. SENIA QUINTANA PTA - 11/23/2018 10:24 EDT Pain Assessment Pain Comment : no complaints of pain noted SENIA QUINTANA PTA - 11/23/2018 10:24 EDT Image 1 - Images currently included in the form version of this document have not been included in the text rendition version of the form. Anticipated Discharge Needs, OT/PT Anticipated Discharge to OT : Unit, rehabilitation SENIA QUINTANA PTA - 11/23/2018 10:24 EDT [place] [facility] Charges PT Therap. Exercise 15 min : 1 PT Ther Activities Ea 15 Min : 1 SENIA QUINTANA PTA - 11/23/2018 10:24 EDT documented in this encounter Plan of Treatment Not on file documented as of this encounter Visit Diagnoses Not on filedocumented in this encounter
--- OUTSIDE RECORDS SUMMARY | 2025-02-23 11:52 | XMS_ITS | Encounter Summary ---
Author Organization [employer] ([place], [place], [place], [place]) Address [address] [place] [address] Care Team Providers Care Naval Aircrewman Name Role Phone Unavailable Primary Care Provider Unavailabl e Encounter Details Date Type Department Care Team (Late st Contact Info) Description 11/30/2018 Transcribed Document [facility] [place] [facility] [place] [address] ProviderErika MD [address] [place] [address] Social History Tobacco Use Types Packs/Day Years Used Date Smoking Tobacco: Never Assessed Sex and Gender Information Value Date Recorded Sex Assigned at Not on file Legal Sex Male 5:03 PM CDT Gender Identity Not on file Sexual Orientation Not on file documented as of this encounter Miscellaneous Notes * Cerner Conversion Note - Erika Jose MD - 11/30/2018 3:31 PM CDT [address] [address] Patient Copy Patient Information: Name: DOTTIE VILLASENOR Current Date: 11/30/2018 15:31:38 : 1940 Patient [address]: [address] [place] [id number] Patient Attending Physician: JULIO CESAR CARVALHO MD-CAT Primary Care Provider: DEMETRICE ARMIJO NP-[facility] Primary Care Provider Discharge Diagnosis: Acute blood loss anemia; Aortic insufficiency; Coronary artery disease; GI bleed; LUE DVT (deep venous thrombosis); Right MCA CVA (cerebral vascular accident); Thoracic ascending aortic aneurysm Weight on Admission: 174 lb, 5 oz Weight at Discharge: 164 lb, 1 oz Comment: Follow-up Instructions: With: Address: When: JOHN BOW[facility] [address], [address] [place] [address] Business (1) Within 6 weeks Comments: Patient should call for a follow up appointment with [facility]. Discharge Instructions: Driving after Discharge: Do not drive, Other: No driving or operating heavy machinery until released by a physician. Community Services: Outpt [facility] [phone] They will call pt w/ appt time. Immunizations Documented During Stay: No Immunizations Found Heart Failure Discharge Instructions (if any): Stroke Related Discharge Instructions (if any): Warfarin Related Discharge Instructions (if any): Final Medication List: Other Medications dutasteride (Avodart 0.5 mg oral capsule) 1 Capsule(s) Oral Before Dinner. levothyroxine (levothyroxine 50 mcg (0.05 mg) oral tablet) 1 Tablet(s) Oral Every Day. losartan (losartan 100 mg oral tablet) 1 Tablet(s) Oral Every Day. metoprolol (metoprolol extended release) 50 Milligram(s) Oral Every Day. rOPINIRole (rOPINIRole 2 mg oral tablet) 1 Tablet(s) Oral At Bedtime. Patient Allergies: No Known Medication Allergies; No Known Allergies Medication Instructions: Take your medications faithfully. Do NOT skip medication. Do NOT stop taking medications without the direction of a physician. Carry a list of your medications with you at all times, and take this medication list with you to your first follow up visit. Report any side effects. Avoid herbal remedies unless discussed with your physician. As part of your treatment plan, your physician may have prescribed a limited course of a controlled substance. This medication may be given to help people with moderate or severe pain or for other medical conditions, but there are risks involved with treatment. Common side effects may include nausea, constipation, drowsiness, sweating, itching, dry mouth, and rash. More serious side effects may include cognitive and motor impairment, like problems with thinking, concentrating, alertness, and movement (e.g. slowed reflexes), and driving and operating heavy machinery can be dangerous. It is important for you to talk to your physician if you have these side effects or questions. These controlled substances can produce physical dependence and be habit-forming if taken for an extended period of time, which means that the body has gotten used to them and may experience withdrawal symptoms if they are abruptly stopped. Withdrawal symptoms can include runny nose, sweating, goose bumps, diarrhea, abdominal cramping, rapid heartbeat, difficulty sleeping, and nervousness. Patient education materials: Stroke Prevention Some medical conditions and behaviors are associated with an increased chance of having a stroke. You may prevent a stroke by making healthy choices and managing medical conditions. How can I reduce my risk of having a stroke? Stay physically active. Get at least 30 minutes of activity on most or all days. ??? Do notsmoke. It may also be helpful to avoid exposure to secondhand smoke. ??? Limit alcohol use. Moderate alcohol use is considered to be: ? No more than 2 drinks per day for men. ? No more than 1 drink per day for non women. ??? Eat healthy foods. This involves: ? Eating 5 or more servings of fruits and vegetables a day. ? Making dietary changes that address high blood pressure (hypertension), high cholesterol, diabetes, or obesity. ??? Manage your cholesterol levels. ? Making food choices that are high in fiber and low in saturated fat, trans fat, and cholesterol may control cholesterol levels. ? Take any prescribed medicines to control cholesterol as directed by your health care provider. ??? Manage your diabetes. ? Controlling your carbohydrate and sugar intake is recommended to manage diabetes. ? Take any prescribed medicines to control diabetes as directed by your health care provider. ??? Control your hypertension. ? Making food choices that are low in salt (sodium), saturated fat, trans fat, and cholesterol is recommended to manage hypertension. ? Ask your health care provider if you need treatment to lower your blood pressure. Take any prescribed medicines to control hypertension as directed by your health care provider. ? If you are 18?39 years of age, have your blood pressure checked every 3?5 years. If you are 40 years of age or older, have your blood pressure checked every year. ??? Maintain a healthy weight. ? Reducing calorie intake and making food choices that are low in sodium, saturated fat, trans fat, and cholesterol are recommended to manage weight. ??? Stop drug abuse. ??? Avoid taking control pills. ? Talk to your health care provider about the risks of taking control pills if you are over 35 years old, smoke, get migraines, or have ever had a blood clot. ??? Get evaluated for sleep disorders (sleep apnea). ? Talk to your health care provider about getting a sleep evaluation if you snore a lot or have excessive sleepiness. ??? Take medicines only as directed by your health care provider. ? For some people, aspirin or blood thinners (anticoagulants) are helpful in reducing the risk of forming abnormal blood clots that can lead to stroke. If you have the irregular heart rhythm of atrial fibrillation, you should be on a blood thinner unless there is a good reason you cannot take them. ? Understand all your medicine instructions. ??? Make sure that other conditions (such as anemia or atherosclerosis) are addressed. Get help right away if: ??? You have sudden weakness or numbness of the face, arm, or leg, especially on one side of the body. ??? Your face or eyelid droops to one side. ??? You have sudden confusion. ??? You have trouble speaking (aphasia) or understanding. ??? You have sudden trouble seeing in one or both eyes. ??? You have sudden trouble walking. ??? You have dizziness. ??? You have a loss of balance or coordination. ??? You have a sudden, severe headache with no known cause. ??? You have new chest pain or an irregular heartbeat. Any of these symptoms may represent a serious problem that is an emergency. Do not wait to see if the symptoms will go away. Get medical help at once. Call your local emergency services (911 in [place] Do not drive yourself to the hospital. This information is not intended to replace advice given to you by your health care provider. Make sure you discuss any questions you have with your health care provider. Document Released: 09/17/2005 Document Revised: 01/15/2017 Document Reviewed: 02/10/2014 [employer] ([employer]) Interactive Patient Education ? 2017 [employer] CIGARETTE SMOKING: The facts are clear, cigarette smoking will shorten your life. Smoking can cause many illnesses along the way. As a healthcare provider, we recommend that you stop smoking. Assistance with quitting is available by contacting 2-786-WANS-NOW. This is a free resource providing counseling, support, and referral. Or you may contact your personal physician. 4 WAYS TO GET AHEAD OF SEPSIS SEPSIS is a MEDICAL EMERGENCY. Time matters! Infections put you and your family at risk for a life-threatening condition called sepsis. Sepsis is the body???s extreme response to an infection. It is life-threatening, and without timely treatment, sepsis can rapidly lead to tissue damage, organ failure, and . Sepsis happens when an infection you already have???in your skin, lungs, urinary tract or somewhere else???triggers a chain reaction throughout your body. 1 PREVENT INFECTIONS Take good care of chronic conditions. Talk to your doctor about getting the recommended vaccines. 2 PRACTICE GOOD HYGIENE Wash your hands frequently. Keep cuts or open sores clean and covered until they are healed. 3 KNOW THE SYMPTOMS Confusion or disorientation Shortness of breath High heart rate Fever, shivering, or feeling very cold Extreme pain or discomfort Clammy or sweaty skin 4 ACT FAST Get medical care IMMEDIATELY if you suspect sepsis or if you have an infection that???s not getting better or is getting worse. To learn more about sepsis and how to prevent infections, visit www.cdc.gov/sepsis. STROKE is an EMERGENCY Every Minute Counts ACT F.A.S.T! FACE ?? Facial droop ?? Uneven smile ARM ?? Arm numbness ?? Arm weakness SPEECH ?? Slurred speech ?? Difficulty speaking or understanding TIME ?? Call 911 and get to the hospital immediately Have the ambulance go to the nearest stroke center. STROKE Risk Factors High blood pressure High cholesterol Heart Disease Diabetes Smoking Heavy alcohol use Physical inactivity and obesity Atrial Fibrillation (irregular heartbeat) Family history of stroke Reminder: Be sure to sign up for the [facility] patient portal, which gives you 16/03 access to your medical information ??? including these discharge instructions ??? using your computer, smartphone, or tablet. Just go to [email or web address] to get started. Questions? Call . [facility] would like to thank you for allowing us to assist you with your healthcare needs. HAMILTON Jarvis ROBERT H, (or sales representative sales manager) have received the above patient education materials/instructions and have verbalized understanding: Patient Signature _ Date/Time Patient Pipeline Integrity Engineer Signature (if needed) Date/Time Clinician/Hospital Pipeline Integrity Engineer Signature (if needed) Date/Time Electronically signed by Parveen [facility] [place] Conversion Vp Corporate Partnerships Felipe at 12/08/2022 12:33 PM CDT documented in this encounter Plan of Treatment Not on file documented as of this encounter Visit Diagnoses Not on filedocumented in this encounter
--- OUTSIDE RECORDS SUMMARY | 2025-02-23 11:52 | XMS_ITS | Encounter Summary ---
Author Organization [employer] ([place], [place], [place], [place]) Address [address] [place] [address] Care Team Providers Care Physical Therapy Teacher Name Role Phone Unavailable Primary Care Provider Unavailjuliana e Encounter Details Date Type Department Care Team (Late st Contact Info) Description 11/17/2018 Transcribed Document [facility] [place] Family Medicine [address] [place] [address] ProviderErika MD [address] [place] [address] Social History Tobacco Use Types Packs/Day Years Used Date Smoking Tobacco: Never Assessed Sex and Gender Information Value Date Recorded Sex Assigned at Not on file Legal Sex Male 5:03 PM CDT Gender Identity Not on file Sexual Orientation Not on file documented as of this encounter Miscellaneous Notes * Cerner Conversion Note - Erika ProviderMD - 11/17/2018 11:49 AM CDT Nutrition Assessment Entered On: 11/17/2018 11:49 EDT Performed On: 11/17/2018 11:49 EDT by Lizabeth Marti, Signals Intelligence Analysis Manager Nutrition Assessment Nutrition Assessment Reason : Consult Current Nutrition Regimen Comment : 11/17: RD rec'd verbal consult from RN to initiate TF per Dr. Whiting. RN reports pt extubated but too sleepy for po diet. RN states pt has NGT. 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 No family present. DX: CAD, AAA, KATHRYN PMH: HTN, restless leg syndrome, hx of skin ca LABS: glucose 115, FSBG 132, 129, 127, 122, Mg2.7, K+ 3.4, WBC 15.3 MEDS: senna, albumin prn, KCl prn, pain prn Drips: insulin, D5W @ 30ml/hr (122 kcal) SKIN: wnls + sternum midline incision GI: LBM INDUSTRY ANALYST, hypoactive BS, +NGT, +chest tube (1030 ml) HT: 185cm (6'1) ADMIT WT: 79kg/174# BMI: 23 IBW: 79kg/100% NFPE: insignificant EST NEEDS: 8628-3334 kcal (25-30kcal/kg), 95g pro (1.2g/kg) Lizabeth Marti Dietician - 11/17/2018 11:44 EDT Teaching/Learning Assessment Lizabeth Marit Dietician - 11/17/2018 11:52 EDT Lizabeth Marti Dietician - 11/17/2018 11:53 EDT Nutrition Diagnoses Oral or Nutrition Support Intake : Inadequate oral intake Oral or Nutr Support Intake Related To : clinical condition/pt too dowsy for po intake Oral or Nutr Support Intake Evidenced by : need for EN Oral or Nutrition Support Intake Status : Active Lizabeth Marti Dietician - 11/17/2018 11:44 EDT Nutrition Interventions Enteral/Parenteral Nutrition : Initiate enteral nutrition Lizabeth Marti Dietician - 11/17/2018 11:44 EDT Monitoring/Evaluation Enteral Nutrition Intake : Formula/Solution, Feeding tube flush, Tube Feeding Tolerance Weight Status : Weight Maintanence Gastrointestinal Function : Bowel Function Lizabeth Marti Dietician - 11/17/2018 11:44 EDT Nutrition Recommendations Dietitian Recommendations : 1. recommend d/c D5W and initiate TF: osmolite 1.5 @ 60ml/hr + 1 proteinex daily (provides 2040 kcal, 98g pro). FW per MD. goal: provide nutrition, meet est needs 2. as medically able, recommend initate po diet (cardiac) w/consitencies per MANUFACTURING PLANT CONTROLLER. RD will monitor need for supplement. goal: establish po intake 3. obtain wt 2x weekly goal: no significant unintended changes high risk Nutrition Care Level : High Lizabeth Marti Dietician - 11/17/2018 11:44 EDT Electronically signed by Christina Siani Conversion Wire Winding Machine Tender Cerner at 12/08/2022 12:24 PM CDT documented in this encounter Plan of Treatment Not on file documented as of this encounter Visit Diagnoses Not on filedocumented in this encounter
--- OUTSIDE RECORDS SUMMARY | 2025-02-23 11:52 | XMS_ITS | Encounter Summary ---
Author Organization [facility] ([place], [place], [place], [place]) Address [address] [place] [address] Care Team Providers Care Mold Filler And Drainer Name Role Phone Unavailable Primary Care Provider Unavailabl e Encounter Details Date Type Department Care Team (Late st Contact Info) Description 11/30/2018 Transcribed Document [facility] [place] [address] [place] [address] ProviderErika MD [address] [place] [address] Social History Tobacco Use Types Packs/Day Years Used Date Smoking Tobacco: Never Assessed Sex and Gender Information Value Date Recorded Sex Assigned at Not on file Legal Sex Male 5:03 PM CDT Gender Identity Not on file Sexual Orientation Not on file documented as of this encounter Miscellaneous Notes * Cerner Conversion Note - Historical ProviderMD - 11/30/2018 1:56 PM CDT Attempt to Treat, OT Entered On: 11/30/2018 14:23 EDT Performed On: 11/30/2018 13:56 EDT by AUDREY GRANDE OTR/Ginny Attempt to Treat Unable to Treat Due To : Patient Unavailable Inability to Treat Comment : Pt eating at this time. OT will f/u as schedule permits. Notification : AUDREY Gonzalez OTR/L - 11/30/2018 14:22 EDT documented in this encounter Plan of Treatment Not on file documented as of this encounter Visit Diagnoses Not on filedocumented in this encounter
--- OUTSIDE RECORDS SUMMARY | 2025-02-23 11:52 | XMS_ITS | Encounter Summary ---
Author Organization [employer] ([place], [place], [place], [place]) Address [address] [place] [address] Care Team Providers Care Senior Web Analyst Name Role Phone Unavailable Primary Care Provider Unavailabl e Encounter Details Date Type Department Care Team (Late st Contact Info) Description 11/29/2018 Transcribed Document [facility] [place] [address] [place] [address] ProviderErika MD [address] [place] [address] Social History Tobacco Use Types Packs/Day Years Used Date Smoking Tobacco: Never Assessed Sex and Gender Information Value Date Recorded Sex Assigned at Not on file Legal Sex Male 5:03 PM CDT Gender Identity Not on file Sexual Orientation Not on file documented as of this encounter Miscellaneous Notes * Cerner Conversion Note - Historical ProviderMD - 11/29/2018 11:15 AM CDT CONTROL INTEGRATION ENGINEER Attempt to Treat Entered On: 11/29/2018 11:15 EDT Performed On: 11/29/2018 11:15 EDT by JOSSUE RODRÍGUEZ SLP Attempt to Treat Unable to Treat Due To : Patient Unavailable Inability to Treat Comment : Pt in the process of transferring to . RN reports pt is to have procedure this afternoon. ST will check back as schedule allows Notification : TONJA Sanchez, JOSSUE TELLEZ, ERIC - 11/29/2018 11:15 EDT documented in this encounter Plan of Treatment Not on file documented as of this encounter Visit Diagnoses Not on filedocumented in this encounter
--- OUTSIDE RECORDS SUMMARY | 2025-02-23 11:52 | XMS_ITS | Encounter Summary ---
Author Organization [employer] ([place], [place], [place], [place]) Address [address] [place] [address] Care Team Providers Care Construction Specialist Name Role Phone Unavailable Primary Care Provider Unavailabl e Encounter Details Date Type Department Care Team (Late st Contact Info) Description 11/30/2018 Transcribed Document [facility] [address] [place] [address] ProviderErika MD [address] [place] [address] Social History Tobacco Use Types Packs/Day Years Used Date Smoking Tobacco: Never Assessed Sex and Gender Information Value Date Recorded Sex Assigned at Not on file Legal Sex Male 5:03 PM CDT Gender Identity Not on file Sexual Orientation Not on file documented as of this encounter Miscellaneous Notes * Cerner Conversion Note - Historical ProviderMD - 11/30/2018 5:00 PM CDT Chart Check - Review Order Profile Entered On: 11/30/2018 18:03 EDT Performed On: 11/30/2018 17:00 EDT by CHIQUI STATON, RN Chart Check All Active Orders Reviewed : Yes CHIQUI STATON RN - 11/30/2018 18:02 EDT documented in this encounter Plan of Treatment Not on file documented as of this encounter Visit Diagnoses Not on filedocumented in this encounter
--- OUTSIDE RECORDS SUMMARY | 2025-02-23 11:52 | XMS_ITS | Encounter Summary ---
Author Organization [employer] ([place], [place], [place], [place]) Address [address] [place] [address] Care Team Providers Care Fuel Truck Driver Name Role Phone Unavailable Primary Care Provider Unavailabl e Encounter Details Date Type Department Care Team (Late st Contact Info) Description 11/29/2018 Transcribed Document [facility] [place] [address] [place] [address] ProviderErika MD [address] [place] [address] Social History Tobacco Use Types Packs/Day Years Used Date Smoking Tobacco: Never Assessed Sex and Gender Information Value Date Recorded Sex Assigned at Not on file Legal Sex Male 5:03 PM CDT Gender Identity Not on file Sexual Orientation Not on file documented as of this encounter Miscellaneous Notes * Cerner Conversion Note - Erika ProviderMD - 11/29/2018 2:[address] [facility] Endo IntraOp Summary Primary Physician: RIGOBERTO YU MD Finalized Date/Time: 11/29/18 15:07:06 Pt. Name: DOTTIE VILLASENOR /Sex: 1940 Male Med Rec #: [id number] Physician: JULIO CESAR CARVALHO MD-[facility] Financial #: [id number] Pt. Type: I Room/Bed: [facility]/ Admit/Disch: 11/16/18 06:45:00 - Institution: [facility] Endo - Case Attendance Entry 1 Entry 2 Entry 3 Case Attendee RIGOBERTO YU MD Reynolds, Ashley N, RN JONNATHAN LUBIN Role Performed Surgeon/Proceduralist, Wildlife Conservation Officer, First Scrub, First First Time In 11/29/18 14:47:00 11/29/18 14:47:00 11/29/18 14:47:00 Time Out 11/29/18 15:09:00 11/29/18 15:09:00 11/29/18 15:09:00 Procedure EGD w Control Bleeding EGD w Control Bleeding EGD w Control Bleeding Other Attendee Superficial Wound Closed By: Last Modified By: Gem Parekh RN Reynolds, Ashley N, RN Reynolds, Ashley N, RN 11/29/18 15:06:55 11/29/18 15:06:55 11/29/18 15:06:55 Entry 4 Entry 5 Case Attendee Cassie Patino Crna CORNEA, MIHAELA, MD Role Performed COST ENGINEER/Nurse Cosmetic Sales Consultant Anesthesiologist of Record Time In 11/29/18 14:47:00 11/29/18 14:47:00 Time Out 11/29/18 15:09:00 11/29/18 15:09:00 Procedure EGD w Control Bleeding EGD w Control Bleeding Other Attendee Superficial Wound Closed By: Last Modified By: Gem Parekh RN Reynolds, Ashley N, RN 11/29/18 15:06:55 11/29/18 15:06:55 [facility] Endo - Case Attendance Audit 11/29/18 15:06:55 Director Of Environmental Services: [email or web address] Modifier: [email or web address] 1 <+> Time Out 1 <*> Procedure EGD w Control Bleeding 2 <+> Time Out 2 <*> Procedure EGD w Control Bleeding 3 <+> Time Out 3 <*> Procedure EGD w Control Bleeding 4 <+> Time Out 4 <*> Procedure EGD w Control Bleeding 5 <+> Time Out 5 <*> Procedure EGD w Control Bleeding 11/29/18 14:59:16 Director Of Environmental Services: [email or web address] Modifier: [email or web address] <+> 1 Procedure <+> 2 Procedure <+> 3 Procedure <+> 4 Procedure <+> 5 Procedure 11/29/18 14:59:14 Director Of Environmental Services: [email or web address] Modifier: [email or web address] 1 <-> Procedure Esophagogastroduodenoscopy 2 <-> Procedure Esophagogastroduodenoscopy 3 <-> Procedure Esophagogastroduodenoscopy 4 <-> Procedure Esophagogastroduodenoscopy 5 <-> Procedure Esophagogastroduodenoscopy 11/29/18 14:49:19 Director Of Environmental Services: [email or web address] Modifier: [email or web address] 1 <*> Procedure Esophagogastroduodenoscopy 2 <+> Time In 2 <*> Procedure Esophagogastroduodenoscopy 3 <+> Time In 3 <*> Procedure Esophagogastroduodenoscopy 4 <+> Time In 4 <*> Procedure Esophagogastroduodenoscopy 5 <+> Time In 5 <*> Procedure Esophagogastroduodenoscopy 11/29/18 14:48:29 Director Of Environmental Services: [email or web address] Modifier: [email or web address] 1 <+> Time In 1 <*> Procedure Esophagogastroduodenoscopy <+> 2 Case Attendee <+> 2 Role Performed <+> 2 Procedure <+> 3 Case Attendee <+> 3 Role Performed <+> 3 Procedure <+> 4 Case Attendee <+> 4 Role Performed <+> 4 Procedure <+> 5 Case Attendee <+> 5 Role Performed <+> [address] [facility] Endo - Case times Entry 1 Patient In Room Time 11/29/18 14:47:00 Out Room Time 11/29/18 15:09:00 Anesthesia Start Time 11/29/18 14:47:00 Stop Time 11/29/18 15:09:00 Surgery / Procedure Times Start Time 11/29/18 14:51:00 Stop Time 11/29/18 15:06:00 Last Modified By: Gem Parekh RN 11/29/18 15:06:53 [facility] Endo - Case times Audit 11/29/18 15:06:53 Director Of Environmental Services: [email or web address] Modifier: [email or web address] <+> 1 Out Room Time <+> 1 Stop Time <+> 1 Stop Time 11/29/18 14:51:51 Director Of Environmental Services: [email or web address] Modifier: [email or web address] <+> [address] [facility] Endo - Delays Entry 1 Delay Reason Other Duration 0 Minute(s) Last Modified By: Gem Parekh RN 11/29/18 14:48:33 [facility] Endo - Departure from OR Entry 1 Integumentary Assessment Integumentary WDL Assessment WDL Transfer/Handoff Transfer to PACU Phase I Handoff Method Bedside/Face to face Post-op Transport Stretcher/Gurney Via Patient Transport Gem Parekh RN, Accompanied by Cassie Patino Crna Last Modified By: Gem Parekh RN 11/29/18 14:48:36 [facility] Endo - Endoscopy Details Entry 1 Abdomen Procedure Soft, Non-Tender Assessment Procedure Abdomen 11/29/18 14:47:00 Assessment D/T Radio Frequency Ablation Last Modified By: Gem Parekh RN 11/29/18 14:48:41 [facility] Endo - Fire Risk Assessment Entry 1 Fire Info Surgical Site or 1- Yes Incision Above the Xyphoid Open O2 Source 1- Yes (Mask or Cannula) Available Ignition 1- Yes (ESU, Laser, Light Source) Fire Risk 3 Assessment Score Fire Score Fire Risk Yes Assessment Complete Fire Risk Gem Parekh RN Assessment Verified By Fire Risk 11/29/18 14:47:00 Assessment Verified Date/Time Fire Risk High Risk Protocol Yes Implemented Standard Fire Yes Safety Precautions Followed Last Modified By: Gem Parekh RN 11/29/18 14:48:48 [facility] Endo - General Case Web Production Assistant 1 Case Information OR Endo 01 [facility] Case Level 1 Room Verified Yes Wound Class II - Clean-Contaminated Specialty SN Gastroenterology Anesthesia Type MAC ASA Class 4 Diagnosis Preop Diagnosis GI Bleed Postop Same As Preop Yes Postop Diagnosis GI Bleed Last Modified By: Gem Parekh RN 11/29/18 14:48:58 [facility] Endo - Implant Log Entry 1 Entry 2 Type Implant (Synthetic) Implant (Synthetic) Implant Log Implant Type Tissue Implant Type Implant CLIP II RESOLUTION CLIP II RESOLUTION Identification [id number] Description Implant Quantity 1 1 Implant Site Implant Identification Model Number Implant Identification Serial Number Implant [id number] Identification Lot Number Implant [place] Sci:Interv [place] Sci:Interv Identification Cardiology Cardiology Tire Servicer Name: Implant [id number] Identification Catalog Number Implant Size Implant Has an Yes Yes Expiration Date Implant Expiration 09/05/21 07/10/21 Date Wasted Radioactive Material Time Implanted Tissue Implant Continue for Tissue Implant Documentation Tissue Identification Number Graft Prep Per Tire Servicer Instructions: Tissue Preparation Method: Reconstitution Solution: Reconstitution Solution Lot Number Reconstitution Solution Expiration Date: Thawing Solution Thawing Solution Lot Number Thawing Solution Expiration Date Preparation Materials, Other Preparation Materials, Other Lot Number Preparation Materials, Other Expiration Date Tissue Prepared/Processed By Tire Servicer Paperwork Completed Implant Type Comment clip failed Last Modified By: Gem Parekh RN Reynolds, Ashley N, RN 11/29/18 15:00:27 11/29/18 15:06:45 [facility] Endo - Implant Log Audit 11/29/18 15:06:45 Director Of Environmental Services: GARY Modifier: [email or web address] 2 <*> Implant Identification Description CLIP II RESOLUTION [id number] <+> Implant Type Comment 11/29/18 15:04:27 Director Of Environmental Services: [email or web address] Modifier: [email or web address] <+> 2 Implant Identification Description <+> 2 Implant Identification Lot Number <+> 2 Implant Identification Tire Servicer Name: <+> 2 Implant Expiration Date <+> 2 Implant Quantity <+> 2 Implant Identification Catalog Number <+> 2 Implant Has an Expiration Date <+> [address] [facility] Endo - Intraoperative Assessment Entry 1 Valid History / Yes Physical in Chart Preoperative Yes Checklist Reviewed/Evaluated Patient is Latex No Sensitive Level of WDL Consciousness (WDL = Alert, Oriented to Person, Place, and Time) Last Modified By: Gem Parekh RN 11/29/18 14:49:01 [facility] Endo - Intraoperative Equipment Entry 1 Entry 2 Type Scope Scope Equipment Equipment ID Number Setting Intraop Monitoring Electrocardiogram Three lead placement Three lead placement (ECG) Electrode Placement Blood Pressure Source Blood Pressure Arm, left upper Arm, left upper Location Pulse Oximeter Hand, right Hand, right Probe Site Antiembolic Devices Antiembolic Devices Antiembolic Device Location Antiembolic Device ID Number Antiembolic Device Setting Scopes Flexible Endoscopes Gastroscope Gastroscope Used Scope Serial H E1 Number/Identificatio n Number Photo/Video Documentation Photo Yes Yes Video No No Intraop Equipment Comment Last Modified By: Gem Parekh RN Reynolds, Ashley N, RN 11/29/18 14:49:07 11/29/18 14:56:48 [facility] Endo - Intraoperative Equipment Audit 11/29/18 14:56:48 Director Of Environmental Services: [email or web address] Modifier: [email or web address] <+> 2 Photo <+> 2 Video <+> 2 Electrocardiogram (ECG) Electrode Placement <+> 2 Blood Pressure Location <+> 2 Pulse Oximeter Probe Site <+> 2 Flexible Endoscopes Used <+> 2 Scope Serial Number/Identification Number <+> [address] [facility] Endo - Patient Positioning Entry 1 Procedure EGD w Control Bleeding Body Position Lateral, right side up Left Arm Position Resting at side Right Arm Position Resting at side Left Leg Position Other Right Leg Position Other Position Comments Right leg over left leg, uncrossed Feet Uncrossed Yes Pressure Points Yes Checked Positioned By Gem Parekh RN Position Verified Positioning Yes Verified by Surgeon Last Modified By: Gem Parekh RN 11/29/18 14:59:16 [facility] Endo - Patient Positioning Audit 11/29/18 14:59:16 Director Of Environmental Services: [email or web address] Modifier: [email or web address] <+> 1 Procedure 11/29/18 14:59:14 Director Of Environmental Services: [email or web address] Modifier: [email or web address] 1 <-> Procedure Esophagogastroduodenoscopy [facility] Endo - Sign In Entry 1 Patient, Site, Yes Procedure Identified Surgical Consent Yes Confirmed Surgical Site N/A Marked by person performing procedure Airway Hypothermia Risk No Warming Measures No Taken Last Modified By: Gem Parekh RN 11/29/18 14:49:18 [facility] Endo - Sign Out Entry 1 RN Confirmation Surgical Yes Procedure(s) Identified Instrument, Sponge N/A and Sharps Counts Correct/Documented Equipment Problems N/A Documented Specimen Labeled N/A Correctly Urinary Catheter N/A Documented in IView Safety Checklist Yes Elements Complete? RN Sign Out Gem Parekh RN Signature RN Sign Out 11/29/18 15:07:00 Signature Date/Time Plan of Care Outcome - Fire Risk OUTCOME STATEMENT: Goal met Patient is free from injury related to surgical fire Plan of Care Outcome - Pt Positioning OUTCOME STATEMENT: Goal met Absence of signs and symptoms of positioning injury. Plan of Care Outcome - Skin Prep OUTCOME STATEMENT: Goal met Intraoperative care is consistent with measures to prevent infection Plan of Care Outcome - Xray/Images OUTCOME STATEMENT: N/A Absence of observable signs or symptoms of radiation injury Plan of Care Outcome - Counts OUTCOME STATEMENT: Goal met Absence of signs and symptoms of injury related to extraneous objects Last Modified By: Gem Parekh RN 11/29/18 15:07:01 [facility] Endo - Surgical Procedures Entry 1 Procedure EGD w Control Bleeding Primary Procedure Yes Primary Surgeon RIGOBERTO YU MD Start 11/29/18 14:51:00 Stop 11/29/18 15:06:00 Anesthesia Type MAC Specialty SN Gastroenterology Wound Class II - Clean-Contaminated Last Modified By: Gem Parekh RN 11/29/18 15:07:04 [facility] Endo - Surgical Procedures Audit 11/29/18 15:07:04 Director Of Environmental Services: [email or web address] Modifier: [email or web address] <+> 1 Stop 11/29/18 14:59:15 Director Of Environmental Services: [email or web address] Modifier: [email or web address] 1 <*> Procedure Esophagogastroduodenoscopy 1 <+> Start 11/29/18 14:49:23 Director Of Environmental Services: [email or web address] Modifier: [email or web address] 1 <*> Procedure Esophagogastroduodenoscopy 1 <+> Specialty [facility] Endo - Time Out Entry 1 Procedure to be EGD w Control Bleeding Performed Time Out Time Out Pause Time 11/29/18 14:49:00 All activity Yes suspended (unless life threatening emergency) Team Verbally Correct patient Confirms Information identity, Consent form is present and accurate, Agreement on the procedure to be done, Correct patient position, Performed before each procedure if multiple procedures, Reconcile problems if responses among team members differ Antibiotic N/A Prophylaxis Administered Or In Progress Within the Last 60 Minutes Beta Rachael N/A Administered Venous N/A Thromboembolism Prophylaxis Required Anticipated Critical Events Surgeon None expected Last Modified By: Gem Parekh RN 11/29/18 14:59:17 [facility] Endo - Time Out Audit 11/29/18 14:59:17 Director Of Environmental Services: [email or web address] Modifier: [email or web address] <+> 1 Procedure to be Performed 11/29/18 14:59:15 Director Of Environmental Services: [email or web address] Modifier: [email or web address] 1 <-> Procedure to be Performed Esophagogastroduodenoscopy Case Comments <None> Finalized By: Gem Parekh RN Document Signatures Signed By: Gem Parekh RN 11/29/18 15:07 Electronically signed by [facility] Conversion Glass Forming Engineer Cerner at 12/08/2022 12:33 PM CDT documented in this encounter Plan of Treatment Not on file documented as of this encounter Visit Diagnoses Not on filedocumented in this encounter
--- OUTSIDE RECORDS SUMMARY | 2025-02-23 11:52 | XMS_ITS | Encounter Summary ---
Author Organization [facility] ([place], [place], [place], [place]) Address [address] [place] [address] Care Team Providers Care Compressor Repairer Name Role Phone Unavailable Primary Care Provider Unavailabl e Encounter Details Date Type Department Care Team (Late st Contact Info) Description 11/17/2018 Transcribed Document [facility] [place] [address] [place] [address] ProviderErika MD [address] [place] [address] Social History Tobacco Use Types Packs/Day Years Used Date Smoking Tobacco: Never Assessed Sex and Gender Information Value Date Recorded Sex Assigned at Not on file Legal Sex Male 5:03 PM CDT Gender Identity Not on file Sexual Orientation Not on file documented as of this encounter Miscellaneous Notes * Cerner Conversion Note - Historical ProviderMD - 11/17/2018 5:00 AM CDT Chart Check - Review Order Profile Entered On: 11/17/2018 7:38 EDT Performed On: 11/17/2018 5:00 EDT by Alpesh Barraza RN Chart Check Chart Reviewed Date and Time : 11/17/2018 7:37 EDT Powerplans Initiated/Discontinued as Appropriate : Yes All Active Orders Reviewed : Yes Alpesh Barraza RN - 11/17/2018 7:37 EDT documented in this encounter Plan of Treatment Not on file documented as of this encounter Visit Diagnoses Not on filedocumented in this encounter
--- OUTSIDE RECORDS SUMMARY | 2025-02-23 11:52 | XMS_ITS | Encounter Summary ---
Author Organization [employer] ([place], [place], [place], [place]) Address [address] [place] [address] Care Team Providers Care Mule Rider Name Role Phone Unavailable Primary Care Provider Unavailabl e Encounter Details Date Type Department Care Team (Late st Contact Info) Description 11/22/2018 Transcribed Document [facility] [place] [address] [place] [address] ProviderErika MD [address] [place] [address] Social History Tobacco Use Types Packs/Day Years Used Date Smoking Tobacco: Never Assessed Sex and Gender Information Value Date Recorded Sex Assigned at Not on file Legal Sex Male 5:03 PM CDT Gender Identity Not on file Sexual Orientation Not on file documented as of this encounter Miscellaneous Notes * Cerner Conversion Note - Erika ProviderMD - 11/22/2018 11:18 AM CDT Evaluation, Occupational Therapy Entered On: 11/23/2018 15:09 EDT Performed On: 11/23/2018 8:50 EDT by TARI MOORE OTR/Ginny General Information, OT Visit Type, OT : Initial evaluation Patient Orders : Order Date Order Ordering 11/22/2018 11:18 OT Evaluation and Treatment Ordered By: JAY JAY CRESPO MD-DIANE Active Diagnoses : 11/23/2018 00:00 Cerebral infarction, unspecified 11/17/2018 00:00 Atherosclerotic heart disease of [place] coronary artery without angina pectoris 11/17/2018 00:00 Essential (primary) hypertension 11/17/2018 00:00 Hypothyroidism, unspecified 11/17/2018 00:00 Nonrheumatic aortic (valve) insufficiency 11/17/2018 00:00 Restless legs syndrome 11/17/2018 00:00 Thoracic aortic aneurysm, without rupture 11/17/2018 00:00 Thrombocytopenia, unspecified 11/16/2018 00:00 Atherosclerotic heart disease of [place] coronary artery without angina pectoris 11/16/2018 00:00 Nonrheumatic aortic (valve) insufficiency 11/16/2018 00:00 Thoracic aortic aneurysm, without rupture Therapy Diagnosis, OT : decreased independence secondary to weakness L sided weakness Onset of Problem, OT : 11/16/2018 EDT Admission Date : 11/16/2018 06:45 Co-treated by, OT : Physical Therapist Personal Devices : Personal Devices No Devices Recorded Assistive Devices : Assistive Devices No Devices Recorded TARI MOORE OTR/L 11/23/2018 15:07 EDT General Information Comment, OT : CVA L sided weakness. Aortic Aneurysm Ascending Repair, CABG w Aortic Valve, Transesophageal Echocardiogram TARI MOORE OTR/L 11/23/2018 15:10 EDT General Status Patient Received Status : Supine in bed Patient Left Status : Up in chair, RN/PCT informed, All needs met and within reach, Other: lift under RN/PCT Informed Comment : TARI Esquivel OTR/L 11/23/2018 15:10 EDT History and Environment, OT Living Situation, Therapy : Home Patient Lives With : Spouse Persons Assisting Patient at Home : Spouse Persons Providing Information : Child/Children Home Setup : One story Stairs : Yes Stair Location(s) : Inside, Outside Inside Stairs, Number of Steps : 1 Stairs Inside Comment : 1 step down into bedroom Outside Stairs, Number of Steps : 2 Railing Outside : No TARI MOORE OTR/L 11/23/2018 15:10 EDT Prior LOF Bathing, OT : Assist needed Prior LOF Bed Mobility : Assist needed Prior LOF Upper Body Dressing, OT : Assist needed Prior LOF Lower Body Dressing, OT : Assist needed Prior LOF Toileting : Assist needed Prior LOF Transfer : Assist needed Prior LOF Grooming, OT : Assist needed Prior LOF Wheel Chair Mobility : Assist needed Prior LOF for IADLs, OT : Assist needed TARI MOORE OTR/L 11/23/2018 15:10 EDT Upper Extremity Upper Extremity Dominance : Right Right UE Active ROM : Impaired Right UE Strength : Impaired TARI MOORE OTR/L 11/23/2018 15:10 EDT Right Upper Extremity Detailed ROM Grid Right Shoulder Flexion Range Right Elbow Flexion Range Active : 90 WFL TARI MOORE OTR/L 11/23/2018 15:10 EDT TARI MOORE OTR/L 11/23/2018 15:10 EDT Left UE Active ROM : Impaired Left UE Strength : Impaired TARI MOORE OTR/L 11/23/2018 15:10 EDT Left Upper Extremity Detailed ROM Grid Left Shoulder Flexion Range Active : 0 TARI MOORE OTR/L 11/23/2018 15:10 EDT RadialDeviation 0-20 LUE Elbow Flexion 0-150 : 1/trace Elbow Extension 0-0 : 1/trace Wrist Flexion 0-80 : 1/trace Wrist Extension 0-70 : 1/trace TARI MOORE OTR/L 11/23/2018 15:10 EDT Hand Histologist Technologist Test : trace with digits TARI MOORE OTR/L 11/23/2018 15:10 EDT Self Care/Home Management, OT Self Feeding Assist Level, OT : Assist, minimal Grooming Assist Level, OT : Assist, moderate Bathing Assist Level, OT : Assist, maximal Upper Body Dressing Assist Level, OT : Assist, maximal Lower Body Dressing Assist Level, OT : Assist, total Toileting Assist Level : Assist, total Toilet Transfer Assist Level : Assist, maximal Toilet Transfer Device : Belt, gait TARI MOORE OTRL 11/23/2018 15:10 EDT Cognition Assessment, OT Orientation : Not oriented to situation, Not oriented to time TARI MOORE OTRL 11/23/2018 15:10 EDT Indication Assessment, OT Occupational Therapy Indicated : Yes Problem List, OT : Impaired, bed mobility, Impaired, activities daily living, Impaired, endurance tolerance, Impaired functional mobility, Impaired, joint mobility, Impaired, muscle tone, Impaired, sitting balance, Impaired, standing balance, Impaired, strength, Impaired, transfers Potential Barriers, OT : Pain Rehabilitation Potential, OT : Guarded TARI MOORE OTR/L 11/23/2018 15:10 EDT Plan of Care, OT OT Tx Plan/Goals Established w Patient : Yes OT Frequency Rehab : Five days per week OT Duration Rehab : Fourteen days OT Treatments Planned : Activities of daily living, Balance training, Caregiver training, Functional mobility training, Neuromuscular reeducation, Safety education, Therapeutic activities, Therapeutic exercises TARI MOORE OTR/Ginny - 11/23/2018 15:10 EDT Irrigation Worker Goals, OT Self Feeding LTG Grid Goal #1 Activity : Self feeding Assist : Independent, modified Date to Meet : 12/07/2018 EDT Goal Status : Initial TERESABRYANTRAIMARY JANE ANGELES/Ginny - 11/23/2018 15:10 EDT Grooming LTG Grid Goal #1 Activity : Grooming Assist : Assist, minimal Date to Meet : 12/07/2018 EDT Goal Status : Initial goal TARI MOORE OTR/Ginny - 11/23/2018 15:10 EDT Dressing, Upper Body LTG Grid Goal #1 Activity : Dressing, Upper Body Assist : Assist, minimal Date to Meet : 12/07/2018 EDT Goal Status : Initial goal TARI MOORE OTR/Ginny - 11/23/2018 15:10 EDT Toilet Transfer LTG Grid Goal #1 Activity : Toilet Transfer, Stand Pivot Sit Assist : Assist, moderate Date to Meet : 12/07/2018 EDT Goal Status : Initial goal TARI MOORE OTR/L - 11/23/2018 15:10 EDT Bed Mobility/ Bed Transfer LTG Grid Goal #1 Activity : Bed Mobility/Bed Transfer Assist : Assist, moderate Date to Meet : 12/07/2018 EDT Goal Status : Initial goal TARI MOORE OTR/Ginny - 11/23/2018 15:10 EDT Other LTG Grid Goal #1 Goal #2 Goal #3 Goal : pt to participate in AAROM of L UE Pt to complete self ROM of L UE Pt to sit EOB 5 minutes with supervision and cueing during functional task Date to Meet : 12/07/2018 EDT 12/07/2018 EDT 12/07/2018 EDT Goal Status : Initial goal Initial goal Initial goal TARI MOORE OTR/Ginny - 11/23/2018 15:10 EDT TARI MOORE OTR/L - 11/23/2018 15:10 EDT TARI MOORE OTR/L - 11/23/2018 15:10 EDT Treatment Note Subjective Comment : agreeable Patient's Response to Treatment : pt tolerated fairly Additional Objective Information : pt to EOB max x2. Sat with min assist. Cueing to adjust lean. SPT max x2to chair. Min for self feeding. L hand with trace movements when cued to squeeze both hands at same time. Educated daugther on TA task. Assessment : pt will need rehab Plan for Treatment : see poc TARI MOORE OTR/L - 11/23/2018 15:10 EDT Pain Assessment Pain Score Post-Intervention. : not rated TARI MOORE OTR/L - 11/23/2018 15:10 EDT Image 1 - Images currently included in the form version of this document have not been included in the text rendition version of the form. Anticipated Discharge Needs, OT/PT Anticipated Discharge to OT : Unit, rehabilitation TARI MOORE OTR/L - 11/23/2018 15:[address] [facility] OT Charges OT Eval High Complexity : 1 TARI MOORE OTR/L - 11/23/2018 15:10 EDT documented in this encounter Plan of Treatment Not on file documented as of this encounter Visit Diagnoses Not on filedocumented in this encounter
--- OUTSIDE RECORDS SUMMARY | 2025-02-23 11:52 | XMS_ITS | Encounter Summary ---
Author Organization [employer] ([place], [place], [place], [place]) Address [address] [place] [address] Care Team Providers Care Loan Operations Specialist Name Role Phone Unavailable Primary Care Provider Unavailabl e Encounter Details Date Type Department Care Team (Late st Contact Info) Description 11/18/2018 Transcribed Document [facility] Cardiology [address] [place] [address] Lc Armendariz MD [address] [facility] [address] [place] [address] Social History Tobacco Use Types Packs/Day Years Used Date Smoking Tobacco: Never Assessed Sex and Gender Information Value Date Recorded Sex Assigned at Not on file Legal Sex Male 5:03 PM CDT Gender Identity Not on file Sexual Orientation Not on file documented as of this encounter Miscellaneous Notes * Cerner Conversion Note - Lc Armendariz MD - 11/18/2018 9:09 AM EDT Patient: DOTTIE VILLASENOR Age: 78 years Sex: Male : 1940 Associated Diagnoses: None Author: LC ARMENDARIZ MD-CAR Subjective Slightly more responsive today, family at bedside Health Status Current medications: (Selected) Inpatient Medications Ordered Avodart: 0.5 mg, Oral, AC Dinner Bactroban 2% nasal ointment: 1 Application, Nostrils Both, BID Chap Stick: 1 Application, Topical, Q1H, PRN: Other (See Comment) Dextrose 5% with 0.225% NaCl intravenous solution 1,000 mL: 30 mL/Hr, IntraVENous DuoNeb 0.5 mg-2.5 mg/3 mL inhalation solution: 3 mL, Nebulized Inhalation, RT_Q4H, PRN: Shortness of Breath Insulin regular injection 100 Units + Sodium Chloride 0.9% intravenous solution 100 mL: Corrective Insulin Drip, IntraVENous Lasix: 20 mg, IV Push, 1-Time, PRN: Other (See Comment) Lopressor: 25 mg, Oral, Q12H Milk of Magnesia 8% [...] 0.9% for drip 100 mL: Titrate, IntraVENous hydrALAZINE: 10 mg, IV Push, Q6H, PRN: Hypertension levothyroxine: 50 mcg, Oral, Daily losartan: 100 [...] Comment) rOPINIRole: 2 mg, Oral, At Bedtime saliva substitutes: 1 [place], Buccal, Q2H, PRN: Other (See Comment) sodium bicarbonate 50 mEq per amp (adult): 100 mEq, IV Push, 1-Time, PRN: Other (See Comment) sodium bicarbonate 50 mEq per amp (adult): 50 mEq, IV Push, 1-Time, PRN: Other (See Comment), Home Medications (5) Active Avodart 0.5 mg oral capsule 0.5 mg = 1 Cap, Oral, AC Dinner levothyroxine 50 mcg (0.05 mg) oral tablet 50 mcg = 1 Tab, Oral, Daily losartan 100 mg oral tablet 100 mg = 1 Tab, Oral, Daily metoprolol extended release 50 mg, Oral, Daily rOPINIRole 2 mg oral tablet 2 mg = 1 Tab, Oral, At Bedtime Objective Intake and Output 24 hour intake: Total 473 ml 24 hour output: Total 1,700 ml VS/Measurements Vitals Signs (last 24 hrs) Last Charted Minimum Maximum Apical HR H 103 (NOV 17 21:21) 83 (NOV 17 08:54) H 103 (NOV 17 21:21) Mon HR 91 (NOV 18 06:00) 81 (NOV 17 08:45) 117 (NOV 18 01:00) Resp Rate 20 (NOV 18 06:00) L 7 (NOV 17 08:30) H 34 (NOV 17 09:00) SBP 127 (NOV 18 06:00) 111 (NOV 17 16:00) 132 (NOV 18 04:00) DBP 66 (NOV 18 06:00) L 55 (NOV 17 23:00) 76 (NOV 17 19:00) MAP 93 (NOV 18 06:00) 73 (NOV 18 05:00) 100 (NOV 17 18:30) SpO2 100 (NOV 18 06:00) 97 (NOV 17 10:45) 100 (NOV 17 08:15) General: Alert and oriented, No acute distress. Eye: Pupils are equal, round and reactive to light, Normal conjunctiva, Vision unchanged. HENT: Normocephalic. Neck: Supple, Non-tender, No carotid bruit, No jugular venous distention. Respiratory: Lungs are clear to auscultation, Respirations are non-labored, Breath sounds are equal, Symmetrical chest wall expansion. Cardiovascular: Normal rate, Regular rhythm, No murmur, Good pulses equal in all extremities. Gastrointestinal: Soft, Non-distended, Normal bowel sounds. Musculoskeletal: Normal range of motion, Normal strength. Integumentary: Warm, Dry, [place]. Neurologic: Alert, Oriented. Psychiatric: Cooperative, Appropriate mood & affect. Results Review NOV 18 03:37 138 106 19 / H 200 3.8 27 0.90 \ NOV 18 03:37 \ L 10.2 / H 17.7 L 103 / L 30.3 \ Cardiac Markers (Current Encounter/Past 24 Hours) No Cardiac Marker Results Found (Past 24 Hours) Radiology Results (Last 48 hours) [id number] -- 11/16/2018 06:45 CR Chest 1 Vw Portable (11/16/2018 12:55) Result: PORTABLE CHEST HISTORY: Pneumothorax.COMPARISON: 1 day prior.FINDINGS: The heart is stable in size. The patient is status post mediansternotomy. The endotracheal tube is in the mid thoracic trachea. Anasogastric tube extends below the diaphragm. Left-sided Eleroy-Ganzcatheter tip is in the left main pulmonary artery. Left-sided chest tubeand mediastinal drain are present. There is no pneumothorax. There ispulmonary vascular congestion. IMPRESSION: Post-operative changes with pulmonary vascular congestion.Images reviewed, interpreted, and dictated by Dr. Mindy Jane.Transcribed by Daniel Houston PA-C.I have personally viewed, interpreted and dictated the examination. Ihave read and agree with the above final transcribed report. CR Chest 1 Vw Portable (11/17/2018 03:00) Result: PORTABLE CHEST HISTORY: Pneumothorax.COMPARISON: PCXR from the previous day.FINDINGS: The heart is normal in size. Eleroy-Jovanna catheter tips in theleft pulmonary artery. There [...] transcribed report. CR Chest 1 Vw Portable (11/18/2018 03:45) Result: PORTABLE CHESTHISTORY: Pleural effusion.COMPARISON: PCXR from the previous day.FINDINGS: The heart is stable in size. The patient has undergoneprevious CABG. Previously seen left pleural effusion has resolved. Thereis mild pulmonary vascular congestion. There is no pneumothorax. Thesupport devices are in good position. IMPRESSION: Improved vascular congestion with resolution of previouslyseen left pleural effusion.Images reviewed, interpreted, and dictated by Dr. Niles Escalante.Transcribed by Daniel Houston PA-C. Impression and Plan IMPRESSION: CAD post op CABG x 1 (RUSSELL to LAD) Aortic insufficiency with ascending arotic aneurysm S/P Resection and Grafting of Ascending Thoracic Aortic Aneurysm, 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 and Reimplantation of Coronaries, CABG x 1 (RUSSELL>LAD). 11/16/18 Metabolic encephalopathy post operative HTN HLD Hypothyroidism. PLAN; 11/18/18 Continue current CV Rx Consider adding PO hydralazine for better BP control AM Labs 11/17/18 Agree with Metoprolol, continue ARB with hold parameters AM labs documented in this encounter Plan of Treatment Not on file documented as of this encounter Visit Diagnoses Not on filedocumented in this encounter
--- OUTSIDE RECORDS SUMMARY | 2025-02-23 11:52 | XMS_ITS | Encounter Summary ---
Author Organization [employer] ([place], [place], [place], [place]) Address [address] [place] [address] Care Team Providers Care Credit Collection Specialist Name Role Phone Unavailable Primary Care Provider Unavailabl e Encounter Details Date Type Department Care Team (Late st Contact Info) Description 11/23/2018 Transcribed Document [facility] [place] [address] [place] [address] ProviderErika MD [address] [place] [address] Social History Tobacco Use Types Packs/Day Years Used Date Smoking Tobacco: Never Assessed Sex and Gender Information Value Date Recorded Sex Assigned at Not on file Legal Sex Male 5:03 PM CDT Gender Identity Not on file Sexual Orientation Not on file documented as of this encounter Miscellaneous Notes * Cerner Conversion Note - Erika ProviderMD - 11/23/2018 9:00 PM CDT NIH Stroke Scale *Q Entered On: 11/23/2018 20:19 EDT Performed On: 11/23/2018 21:00 EDT by SHELDON MUELLER RN NIH Stroke Scale *Q NIH Assessment Interval : Other: shift Time of Assessment : 11/23/2018 20:00 EDT [facility] Clinician Administering Scale : SHELDON MUELLER RN NIH Level of Consciousness (1A) : Alert NIH LOC Questions (1B) : Answers one question correctly NIH LOC Commands (1C) : Performs both tasks correctly NIH Best Gaze (2) : Normal NIH Visual (3) : No visual loss NIH Facial Palsy (4) : Normal symmetrical movements NIH Motor Arm, Left (5A) : No effort against gravity NIH Motor Arm, Right (5B) : No drift NIH Motor Leg, Left (6A) : No effort against gravity NIH Motor Leg, Right (6B) : No drift NIH Limb Ataxia (7) : Present in one limb NIH Sensory (8) : Xrhq-gt-[id number] sensory loss NIH Best Language (9) : No aphasia NIH Dysarthria (10) : Normal Extinction and Inattention (11) : No abnormality NIH Scale Score : 9 SHELDON MUELLER RN - 11/23/2018 20:14 EDT documented in this encounter Plan of Treatment Not on file documented as of this encounter Visit Diagnoses Not on filedocumented in this encounter
--- OUTSIDE RECORDS SUMMARY | 2025-02-23 11:52 | XMS_ITS | Encounter Summary ---
Author Organization [employer] ([place], [place], [place], [place]) Address [address] [place] [address] Care Team Providers Care Field Specialist Name Role Phone Unavailable Primary Care Provider Unavailabl e Encounter Details Date Type Department Care Team (Late st Contact Info) Description 11/22/2018 Transcribed Document [facility] [place] [address] [place] [address] ProviderErika MD [address] [place] [address] Social History Tobacco Use Types Packs/Day Years Used Date Smoking Tobacco: Never Assessed Sex and Gender Information Value Date Recorded Sex Assigned at Not on file Legal Sex Male 5:03 PM CDT Gender Identity Not on file Sexual Orientation Not on file documented as of this encounter Miscellaneous Notes * Cerner Conversion Note - Historical ProviderMD - 11/22/2018 3:00 AM CDT Nutrition Assessment Entered On: 11/22/2018 8:52 EDT Performed On: 11/22/2018 8:[address], TAMMIE Nutrition Assessment Nutrition Assessment Reason : Follow Up, Nutrition support DAVION GREEN RD, TAMMIE - 11/22/2018 8:48 EDT Current Nutrition Regimen Comment : 11/22: Pt remains on TF, tolerating Jevity 1.5 at goal rate. Did have BM yesterday. SCIENTIST ENGINEER okayed pt for po diet this am- follow up after breakfast and pt had eating 50% of meal. Pt stated he would enjoy ensure as well. Spoke with RN about observing 1-2 more meals before removing corpak and speaking with MD as well. 11/18: Check on: Pt is on Osmolite 1.5 @ 50m/hr + 1 [id number] daily advancing toward goal of 60ml/hr + 1 [id number] daily. No SCIENTIST ENGINEER consult noted, discussed if any concern for aspiration/lethargy to recommend swallow eval. Pt has cardiac diet and TF active but Pt not alert enough for diet, states he is only wetting mouth with sponge. She reports at home he was a great eater but that he is still coming out of anesthesia effects, has opened eyes but not moved around or been alert much yet. DX: CAD, AAA, KATHRYN PMH: HTN, restless leg syndrome, hx of skin ca LABS: Glu 142, WBC 10.3, FSB, 131, 145, 141 MEDS: senna, SSI SKIN: sternum midline incision; 1-2+ edema GI: + BM 11/21; 1-2+ edema Diet: Cardiac, NTL Intake: ~50% x 1 meal Nutrition Support: Jevity 1.5 @ 60ml/hr + 1 [id number] daily, HT: 185cm (6'1) ADMIT WT: 79kg/174# Current Wt: 81.6kg (11/17), 82.4kg (11/18) , 84.3 kg (11/22) BMI: 23 IBW: 79kg/100% EST NEEDS: 9568-6055 kcal (25-30kcal/kg), 95g pro (1.2g/kg) DAVION GREEN RD, LD - 11/22/2018 12:04 EDT Nutrition Diagnoses Oral or Nutrition Support Intake : Inadequate oral intake Oral or Nutr Support Intake Related To : clinical condition/pt too dowsy for po intake Oral or Nutr Support Intake Evidenced by : need for EN Oral or Nutrition Support Intake Status : Active DAVION GREEN RD, LD - 11/22/2018 8:48 EDT Nutrition Interventions Enteral/Parenteral Nutrition : Continue current enteral nutrition regimen DAVION GREEN RD, LD - 11/22/2018 8:48 EDT Monitoring/Evaluation Energy Intake : Total energy intake Enteral Nutrition Intake : Tube Feeding Tolerance Protein Intake : Total protein Weight Status : Weight Maintanence DAVION GREEN RD, LD - 11/22/2018 8:48 EDT Nutrition Recommendations Dietitian Recommendations : 1. If pt able to eat 50% of meals, recommend removal of corpak and D/C TF. Will add Ensure BID Goal: po intake >50%; incrase long/pro intake 2. If pt does not continue to eat at least 50% fo meals, consider changing TF to nocturnal regimen Jevity1.5 @ 60ml/hr x 12 hours ( Provides 1080 kcal; 46 gm pro) goal: provide nutrition, meet est needs 3. Obtain wt 2x weekly goal: no significant unintended changes high risk DAVION GREEN, RD, LD - 11/22/2018 12:04 EDT Electronically signed by Parveen, [facility] Conversion Vehicle Return Associate Cerner at 12/08/2022 12:11 PM CDT documented in this encounter Plan of Treatment Not on file documented as of this encounter Visit Diagnoses Not on filedocumented in this encounter
--- OUTSIDE RECORDS SUMMARY | 2025-02-23 11:52 | XMS_ITS | Encounter Summary ---
Author Organization [employer] ([place], [place], [place], [place]) Address [address] [place] [address] Care Team Providers Care Avionics Safety Inspector Name Role Phone Unavailable Primary Care Provider Unavailabl e Encounter Details Date Type Department Care Team (Late st Contact Info) Description 11/22/2018 Transcribed Document [facility] [place] [address] [place] [address] ProviderErika MD [address] [place] [address] Social History Tobacco Use Types [...] Height and Weight, Routine Entered On: 11/22/2018 6:36 EDT Performed On: 11/22/2018 5:00 EDT by Amanda Sigala RN Height and Weight, Routine Routine Weight Source : Bed scale Routine Weight Entry Format : Metric Routine Weight, Kilograms : 84.3 kg(Converted to: 185 lb 14 oz) Routine Weight Calculation : 84.3 kg Height Source : Measured Height Entry Format : [place] Height, Feet : 6 ft Height, Inches : 1 Inch Clinical Height : 185.42 cm Body Surface Area (BSA), Routine : 2.09 m2 Body Mass Index (BMI), Routine : 24.52 kg/m2 Amanda Sigala, TONJA - 11/22/2018 6:36 EDT documented in this encounter Plan of Treatment Not on file documented as of this encounter Visit Diagnoses Not on filedocumented in this encounter
--- OUTSIDE RECORDS SUMMARY | 2025-02-23 11:52 | XMS_ITS | Encounter Summary ---
Author Organization [employer] ([place], [place], [place], [place]) Address [address] [place] [address] Care Team Providers Care Catalog Specialist Name Role Phone Unavailable Primary Care Provider Unavailabl e Encounter Details Date Type Department Care Team (Late st Contact Info) Description 11/22/2018 Transcribed Document [facility] Family Medicine [address] [place] [address] ProviderErika MD [address] [place] [address] Social History Tobacco Use Types Packs/Day Years Used Date Smoking Tobacco: Never Assessed Sex and Gender Information Value Date Recorded Sex Assigned at Not on file Legal Sex Male 5:03 PM CDT Gender Identity Not on file Sexual Orientation Not on file documented as of this encounter Miscellaneous Notes * Cerner Conversion Note - Erika Jose MD - 11/22/2018 11:18 AM CDT Language/Communication/Cognition Eval Entered On: 11/23/2018 13:41 EDT Performed On: 11/23/2018 13:41 EDT by MAMTA SOLO SLP General Information Therapy Diagnosis, DRY CLEANER HELPER : 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 Respiratory Assessment Comment : Nasal cannula MAMTA SOLO, ERIC - 11/23/2018 14:12 EDT Visit Type, DRY CLEANER HELPER : Initial evaluation Patient Orders : Speech Language Pathology Evaluation and Treatment -111 Start: 11/22/18 11:18:00 EDT, Routine, For Speech Language Cognitive Eval and Treat - JAY JAY CRESPO MD-DIANE DRY CLEANER HELPER Fxnl Limitation Documentation - Start: 11/20/18 9:37:47 EDT, Continuous Order -111 SYSTEM, SYSTEM Speech Language Pathology Additional Tx - Start: 11/20/18 9:36:00 EDT, For Dysphagia, Continuous Order -111 Admission Date : Admission Date/Time: 11/16/18 06:45:00 Medical Chart Reviewed, DRY CLEANER HELPER : Yes Personal Devices : Personal Devices No Devices Recorded Assistive Devices : Assistive Devices No Devices Recorded Active Diagnoses : 11/23/2018 00:00 Cerebral infarction, unspecified 11/17/2018 00:00 Atherosclerotic heart disease of [place] coronary artery without angina pectoris 11/17/2018 00:00 Essential (primary) hypertension 11/17/2018 00:00 Hypothyroidism, unspecified 11/17/2018 00:00 Nonrheumatic aortic (valve) insufficiency 11/17/2018 00:00 Restless legs syndrome 11/17/2018 00:00 Thoracic aortic aneurysm, without rupture 11/17/2018 00:00 Thrombocytopenia, unspecified 11/16/2018 00:00 Atherosclerotic heart disease of [place] coronary artery without angina pectoris 11/16/2018 00:00 Nonrheumatic aortic (valve) insufficiency 11/16/2018 00:00 Thoracic aortic aneurysm, without rupture Previous Speech/Language Evaluations : N/A Previous Swallow Precautions : Bedside 11/20 recommended instrumental prior to initiating PO diet Previous Cognitive Evaluations : N/A Diet/Intake Prior to Current Admission : Regular/thin Diet/Intake During Current Admission : NPO with TF via Corpak Gag Reflex Intact : Yes Intubation Comment, DRY CLEANER HELPER : 11/16-11/17 Vital Signs RTF : Vitals [...] Initial Wt: 11/15 79.2 kg 174 lb MAMTA SOLO SLP - 11/23/2018 13:41 EDT General Status Patient Received Status, DRY CLEANER HELPER : Supine in bed Patient Left Status, DRY CLEANER HELPER : Supine in bed MAMTA SOLO SLP - 11/23/2018 14:12 EDT Pain Assessment Pain Scaled Used : 0-10 Pain scale Pain Score Pre-Intervention : 0 MAMTA SOLO SLP - 11/23/2018 14:12 EDT Image 1 - Images currently included in the form version of this document have not been included in the text rendition version of the form. Oral Mechanism Dysarthria : Yes Dysarthria Comment : Mild slurring of speech though speech remain 100% intelligible Brief Phonation Quality : Breathy Resonance Types : Appropriate Oral Mechanism for Daily Living : Intact DRY CLEANER HELPER Cough : Weak MAMTA SOLO SLP - 11/23/2018 14:12 EDT Motor Speech Intelligible Speech for Daily Living, Motor Sp : Intact MAMTA SOLO SLP - 11/23/2018 14:12 EDT Auditory Comprehension Auditory Comp for Daily Living : Impaired Body Parts Resp Possible, ASLC : 10 Body Parts Resp Correct, ASLC : 10 Body Parts Accuracy %, ASLC : 100 % Common Objects Resp Possible, ASLC : 10 Common Objects Resp Correct, ASLC : 10 Common Objects Accuracy %, ASLC : 100 % 1 Step Cmnds Resp Possible, ASLC : 5 1 Step Cmnds Resp Correct, ASLC : 5 1 Step Cmnds Accuracy %, ASLC : 100 % 2 Step Cmnds Sim Resp Possible, ASLC : 5 2 Step Cmnds Sim Resp Correct, ASLC : 5 2 Step Cmnds Sim Accuracy %, ASLC : 100 % 3 Step Cmnds Sim Resp Possible, ASLC : 3 3 Step Cmnds Sim Resp Correct, ASLC : 0 3 Step Cmnds Sim Accuracy %, ASLC : 0 % Yes/No Quest Sim Resp Possible, ASLC : 5 Yes/No Quest Sim Resp Correct, ASLC : 5 Yes/No Quest Sim Accuracy %, ASLC : 100 % Yes/No Quest Comp Resp Possible, ASLC : 7 Yes/No Quest Comp Resp Correct, ASLC : 7 Yes/No Quest Comp Accuracy %, ASLC : 100 % Paragraph Sim Resp Possible, ASLC : 6 Paragraph Sim Resp Correct, ASLC : 6 Paragraph Sim Accuracy %, ASLC : 100 % Conversation Simple : Follows conversation without difficulty. Responses are appropriate. Response Delayed : No MAMTA SOLO SLP - 11/23/2018 14:12 EDT Verbal Expression Verbal Expression for Daily Living : Impaired Able to Communicate Functional Needs : No diffiuculty Auto Seq: SUREKHA, # Possible Responses : 7 Auto Seq: SUREKHA, # Correct Responses : 7 Auto Seq: SUREKHA, Accuracy Percent : 100 % Auto Seq: Counting, # Possible Responses : 10 Automatic Sequence: Counting, Number of Correct Responses : 10 Auto Seq: Counting, Accuracy Percent : 100 % Phrases, # of Possible Responses : 5 Phrases, # of Correct Responses : 5 Repetition: Phrases, Accuracy Percent : 100 % Body Parts, # Possible Responses : 5 Body Parts, # Correct Responses : 5 Naming: Body Parts, Accuracy Percent : 100 % Objects, # of Possible Responses : 10 Objects, # of Correct Responses : 10 Naming: Objects, Accuracy Percent : 100 % Phrase Completion: # Possible Responses : 10 Phrase Completion: # Correct Responses : 8 Phrase Completion: Accuracy Percent : 80 % Wh- Qstn: OBJ Name, # Possible Responses : 10 Wh- Qstn: OBJ Name, # Correct Responses : 10 Wh- Qstn: OBJ Name, Accuracy Percent : 100 % Wh- Qstn: OBJ Funct, # Possible Response : 5 Wh- Qstn: OBJ Funct, # Correct Response : 5 Wh- Qstn: OBJ Function, Accuracy Pct : 100 % Divergent Naming #10 # Correct : 4 Divergent Naming #1 Time : 60 Second(s) MAMTA SOLO SLP - 11/23/2018 14:12 EDT Reading Comprehension Reading Comprehension for Daily Living : Impaired (Comment: Reading impacted by L neglect [MAMTA SOLO SLP - 11/23/2018 14:12 EDT] ) MAMTA SOLO SLP - 11/23/2018 14:12 EDT Written Expression Writing for Daily Living : Impaired, Could not complete assessment (Comment: Pt is L hand dominant per pt report. LUE paralysis noted. [MAMTA SOLO SLP - 11/23/2018 14:12 EDT] ) MAMTA SOLO SLP - 11/23/2018 14:12 EDT Attention Attention for Daily Living : Needs additional assessment MAMTA SOLO SLP - 11/23/2018 14:12 EDT Memory Memory for Daily Living : Could not complete assessment MAMTA SOLO SLP - 11/23/2018 14:12 EDT Problem Solving Problem Solving for Daily Living : Needs additional assessment Simple Naming: # Possible Responses : 5 Simple Naming: # Correct Responses : 0 Simple Convergent Naming: Cueing : None MAMTA SOLO SLP - 11/23/2018 14:12 EDT Evaluation Methods Types of Evaluation, DRY CLEANER HELPER : Informal MAMTA SOLO SLP - 11/23/2018 14:12 EDT [facility] Impressions Impressions, Speech/Lang/Cog : Other: Mixed expressive/receptive communication impairment [facility] Overall Impressions : Communication evaluation completed given acute L MCA infarct. 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 Pt presents with mild dysarthria of speech and a moderate mixed expressive/receptive language impairment. Speech is mildly slurred but remains 100% intelligible at the word, phrase, and conversational level. Pt is able to identify/name common body parts and objects. Y/n and simple paragraph comprehension are intact. Pt was able to follow 1 and 2 step directions without difficulty. Pt had noted difficulty with following 3 step commands, convergent naming, and divergent naming tasks. Seems to be unaware of deficits and may benefit from further cognitive evaluation. Reading is significantly impacted by L neglect and writing was not evaluated given LUE paralysis (pt is L hand dominant per his report). MAMTA SOLO SLP - 11/23/2018 14:12 EDT Therapy Indication Assessment DRY CLEANER HELPER Indicated : Yes DRY CLEANER HELPER Interdisciplinary Consultation Needs : No DRY CLEANER HELPER Problem List : Impaired, Spoken Language Comprehension, Impaired, Spoken Language Expression MAMTA SOLO SLP - 11/23/2018 14:12 EDT LTG Lang/Comm/Cog LTG DRY CLEANER HELPER Manager Communication Goal 1 Manager Communication Goal 2 Goals : Improved spoken language expression at the time of discharge Improved auditory/spoken language comprehension at the time of discharge Status : Initial Initial MAMTA SOLO SLP - 11/23/2018 14:12 EDT MAMTA SOLO SLP - 11/23/2018 14:12 EDT STG Lang_Comm_Cog Treatment Frequency, LCC : 5 times per wk Treatment Plan Est w/Pt/Caregvr, LCC : Yes Treatment Duration, LCC : One week Therapy at Next Level of Care, LCC : Acute inpatient rehab MAMTA SOLO SLP - 11/23/2018 14:12 EDT Motor Speech STG Grid Goal #1 Activity : Improve intelligibility of speech Comp Strategies : Slow rate, Overarticulation, Increased loudness Status : Initial MAMTA SOLO SLP - 11/23/2018 14:12 EDT Auditory Comprehension Grid Goal #1 Goal #2 Activity : Follow directions, 3 step commands simple Comprehend paragraph complex MAMTA SOLO SLP - 11/23/2018 14:12 EDT MAMTA SOLO SLP - 11/23/2018 14:12 EDT Verbal Expression STG Grid Goal #1 Activity : Generate items in a category MAMTA SOLO SLP - 11/23/2018 14:12 EDT Reading Comprehension STG Grid Goal #1 Activity : Visual perception deficits MAMTA SOLO SLP - 11/23/2018 14:12 EDT (Comment: L neglect [MAMTA SOLO SLP - 11/23/2018 14:12 EDT] ) Attention STG Grid Goal #1 Activity : Other: Probe MAMTA SOLO SLP - 11/23/2018 14:12 EDT Memory STG Grid Goal #1 Activity : Other: MAMTA Acharya SLP - 11/23/2018 14:12 EDT Problem Solving STG Grid Goal #1 Goal #2 Goal #3 Activity : Generate a list of simple/concrete items Label items in a category, complex/abstract Other: MAMTA Acharya SLP - 11/23/2018 14:12 EDT MAMTA SOLO SLP - 11/23/2018 14:12 EDT MAMTA SOLO SLP - 11/23/2018 14:12 EDT Education Barriers To Learning : Acuity of Illness, Cognitive deficit Individuals Taught : Patient Readiness to Learn : Cooperative Readiness to Learn : Explanation MAMTA SOLO SLP - 11/23/2018 14:12 EDT DRY CLEANER HELPER Education Assessment Grid 1 Evaluation Results : Verbalizes understanding MAMTA SOLO SLP - 11/23/2018 14:12 EDT DRY CLEANER HELPER Education Assessment Grid 2 Treatment Plan : Verbalizes understanding MAMTA SOLO SLP - 11/23/2018 14:[address] [facility] Evaluation of Speech Production & Language : 1 MAMTA SOLO SLP - 11/23/2018 14:12 EDT Anticipated Discharge Needs, DRY CLEANER HELPER Anticipated Discharge to OT : Rehab, high intensity Recommend Continued Therapy at Discharge : Yes MAMTA SOLO SLP - 11/23/2018 14:12 EDT documented in this encounter Plan of Treatment Not on file documented as of this encounter Visit Diagnoses Not on filedocumented in this encounter
--- OUTSIDE RECORDS SUMMARY | 2025-02-23 11:52 | XMS_ITS | Encounter Summary ---
Author Organization [employer] ([place], [place], [place], [place]) Address [address] [place] [address] Care Team Providers Care Bill Collector Name Role Phone Unavailable Primary Care Provider Unavailabl e Encounter Details Date Type Department Care Team (Late st Contact Info) Description 11/25/2018 Transcribed Document [facility] [place] [address] [place] [address] ProviderErika MD [address] [place] [address] Social History Tobacco Use Types Packs/Day Years Used Date Smoking Tobacco: Never Assessed Sex and Gender Information Value Date Recorded Sex Assigned at Not on file Legal Sex Male 5:03 PM CDT Gender Identity Not on file Sexual Orientation Not on file documented as of this encounter Miscellaneous Notes * Cerner Conversion Note - Erika ProviderMD - 11/25/2018 9:00 AM CDT NIH Stroke Scale *Q Entered On: 11/25/2018 11:41 EDT Performed On: 11/25/2018 9:00 EDT by Elissa Rodarte RN NIH Stroke Scale *Q NIH Assessment Interval : Other: Q12H Time of Assessment : 11/25/2018 9:00 EDT [facility] Clinician Administering Scale : Elissa Rodarte RN NIH Level of Consciousness (1A) : Alert NIH LOC Questions (1B) : Answers both questions correctly NIH LOC Commands (1C) : Performs [...] No drift NIH Limb Ataxia (7) : Absent NIH Sensory (8) : Normal NIH Best Language (9) : No aphasia NIH Dysarthria (10) : Normal Extinction and Inattention (11) : No abnormality NIH Scale Score : 6 Elissa Rodarte RN - 11/25/2018 11:39 EDT documented in this encounter Plan of Treatment Not on file documented as of this encounter Visit Diagnoses Not on filedocumented in this encounter
--- OUTSIDE RECORDS SUMMARY | 2025-02-23 11:52 | XMS_ITS | Encounter Summary ---
Author Organization [employer] ([place], [place], [place], [place]) Address [address] [place] [address] Care Team Providers Care Trim Sawyer Name Role Phone Unavailable Primary Care Provider Unavailabl e Encounter Details Date Type Department Care Team (Late st Contact Info) Description 11/29/2018 Transcribed Document [facility] [place] [facility] [place] [address] ProviderErika MD [address], [place] [id number] Social History Tobacco Use Types Packs/Day Years Used Date Smoking Tobacco: Never Assessed Sex and Gender Information Value Date Recorded Sex Assigned at Not on file Legal Sex Male 5:03 PM CDT Gender Identity Not on file Sexual Orientation Not on file documented as of this encounter Miscellaneous Notes * Cerner Conversion Note - Erika Jose MD - 11/29/2018 3:08 PM CDT Patient: DOTTIE VILLASENOR Age: 78 Years Sex: Male : 1940 *Operation EGD w Control Bleeding, Indication for Surgery GI bleed. *Preoperative Diagnosis GI Bleed *Postoperative Diagnosis Duodenal ulcer with bleeding. *Surgeon(s) Primary Surgeon RIGOBERTO YU MD (Surgeon/Proceduralist, First) *Estimated Blood Loss Minimal. *Findings Normal esophagus. Normal stomach. A semi-circumferential ulcer at the bulb with stigmata of bleeding. Confirmed with a duodenoscope. A metal clip was able to placed at one side of the ulcer. Attempt to place another clip to the other side of the ulcer was not successful. Washed with saline. No residual bleeding. *Specimen(s) NA Complications None Resume diet. Cytotec for 1 month. Carafate x 7 days. OK to start other antiplatelet agents one week after today if no evidence of rebleeding. Date of Service Date/Time of Service SN - Proc - Start Time: 11/29/18 14:51:00 (EDT) (11/29/18 14:59:15 EDT) documented in this encounter Plan of Treatment Not on file documented as of this encounter Visit Diagnoses Not on filedocumented in this encounter
--- OUTSIDE RECORDS SUMMARY | 2025-02-23 11:52 | XMS_ITS | Encounter Summary ---
Author Organization [employer] ([place], [place], [place], [place]) Address [address] [place] [address] Care Team Providers Care Form Setter Helper Name Role Phone Unavailable Primary Care Provider Unavailabl e Encounter Details Date Type Department Care Team (Late st Contact Info) Description 11/17/2018 Transcribed Document [facility] Family Medicine [address] [place] [address] ProviderErika MD [address] [place] [address] Social History Tobacco Use Types Packs/Day Years Used Date Smoking Tobacco: Never Assessed Sex and Gender Information Value Date Recorded Sex Assigned at Not on file Legal Sex Male 5:03 PM CDT Gender Identity Not on file Sexual Orientation Not on file documented as of this encounter Miscellaneous Notes * Cerner Conversion Note - Historical ProviderMD - 11/17/2018 5:00 PM CDT Chart Check - Review Order Profile Entered On: 11/17/2018 17:23 EDT Performed On: 11/17/2018 17:00 EDT by REESE OCONNOR Rn Chart Check Chart Reviewed Date and Time : 11/17/2018 17:23 EDT Powerplans Initiated/Discontinued as Appropriate : Yes All Active Orders Reviewed : Yes REESE OCONNOR Rn - 11/17/2018 17:23 EDT documented in this encounter Plan of Treatment Not on file documented as of this encounter Visit Diagnoses Not on filedocumented in this encounter
--- OUTSIDE RECORDS SUMMARY | 2025-02-23 11:52 | XMS_ITS | Encounter Summary ---
Author Organization [employer] ([place], [place], [place], [place]) Address [address] [place] [address] Care Team Providers Care Manager Nursing Name Role Phone Unavailable Primary Care Provider Unavailabl e Encounter Details Date Type Department Care Team (Late st Contact Info) Description 11/17/2018 Transcribed Document [facility] [place] [address] [place] [address] ProviderErika MD [address] [place] [address] Social History Tobacco Use Types Packs/Day Years Used Date Smoking Tobacco: Never Assessed Sex and Gender Information Value Date Recorded Sex Assigned at Not on file Legal Sex Male 5:03 PM CDT Gender Identity Not on file Sexual Orientation Not on file documented as of this encounter Miscellaneous Notes * Cerner Conversion Note - Historical ProviderMD - 11/17/2018 1:44 PM CDT Attempt to Treat, PT Entered On: 11/17/2018 13:45 EDT Performed On: 11/17/2018 13:44 EDT by ROGER LEWIS PT Attempt to Treat Unable to Treat Due To : Patient on hold Inability to Treat Comment : Hold today and check back tomorrow per Shonda EVANGELISTA due to pt not alert enough for PT ROGER LEWIS, PT - 11/17/2018 13:44 EDT documented in this encounter Plan of Treatment Not on file documented as of this encounter Visit Diagnoses Not on filedocumented in this encounter
--- OUTSIDE RECORDS SUMMARY | 2025-02-23 11:52 | XMS_ITS | Encounter Summary ---
Author Organization [employer] ([place], [place], [place], [place]) Address [address] [place] [address] Care Team Providers Care Hub Lead Name Role Phone Unavailable Primary Care Provider Unavailabl e Encounter Details Date Type Department Care Team (Late st Contact Info) Description 11/22/2018 Transcribed Document [facility] [address] [place] [address] ProviderErika MD [address] [place], [place] [id number] Social History Tobacco Use Types Packs/Day Years Used Date Smoking Tobacco: Never Assessed Sex and Gender Information Value Date Recorded Sex Assigned at Not on file Legal Sex Male 5:03 PM CDT Gender Identity Not on file Sexual Orientation Not on file documented as of this encounter Miscellaneous Notes * Cerner Conversion Note - Historical ProviderMD - 11/22/2018 2:00 AM CDT Planning Assistant Details Entered On: 11/22/2018 6:09 EDT Performed On: 11/22/2018 2:00 EDT by Amanda Sigala RN Order Details Transport Mode Order Detail : Portable Isolation Precautions Order Detail : Contact precautions Order Detail : N/A IV Order Detail : 1 Oxygen Order Detail : 1 Nurse Collect Order Detail : 1 Lift/Transfer : Maximal assist Central Line Order Detail : Yes Room Service : Not Appropriate Arterial Line : No Amanda Sigala RN - 11/22/2018 6:09 EDT documented in this encounter Plan of Treatment Not on file documented as of this encounter Visit Diagnoses Not on filedocumented in this encounter
--- OUTSIDE RECORDS SUMMARY | 2025-02-23 11:52 | XMS_ITS | Encounter Summary ---
Author Organization [email or web address] ([place], [place], [place], [place]) Address [address] [place] [address] Care Team Providers Care Seo Executive Name Role Phone Unavailable Primary Care Provider Unavailabl e Encounter Details Date Type Department Care Team (Late st Contact Info) Description 11/29/2018 Transcribed Document [facility] [place] [address] [place] [address] ProviderErika MD [address] [place] [address] Social History Tobacco Use Types Packs/Day Years Used Date Smoking Tobacco: Never Assessed Sex and Gender Information Value Date Recorded Sex Assigned at Not on file Legal Sex Male 5:03 PM CDT Gender Identity Not on file Sexual Orientation Not on file documented as of this encounter Miscellaneous Notes * Cerner Conversion Note - Erika ProviderMD - 11/29/2018 2:30 PM CDT [facility] Onel PreOp Summary Primary Physician: RIGBOERTO YU MD Finalized Date/Time: 11/29/18 14:12:35 Pt. Name: DOTTIE VILLASENOR Ladan /Sex: 1940 Male Med Rec #: [id number] Physician: JULIO CESAR CARVALHO [facility] Financial #: [id number] Pt. Type: I Room/Bed: 330/1 Admit/Disch: 11/16/18 06:45:00 - Institution: [facility] Onel PreOp Case Times Entry 1 In Preop 11/29/18 13:59:00 Ready for Holding n/a Room Patient Ready for 11/29/18 14:12:00 Surgery Patient Out of Preop 11/29/18 14:12:00 Patient Out of n/a Holding Room Last Modified By: Gem Osborne Rn 11/29/18 14:12:33 [facility] Endo PreOp Case Times Audit 11/29/18 14:12:33 Deck Lid Fitter: ASHLEYSTAPLETON Modifier: ASHLEYSTAPLETON <+> 1 Patient Out of Preop <+> 1 Patient Ready for Surgery Finalized By: Gem Osborne Rn Document Signatures Signed By: Gem Osborne Rn 11/29/18 14:12 documented in this encounter Plan of Treatment Not on file documented as of this encounter Visit Diagnoses Not on filedocumented in this encounter
--- OUTSIDE RECORDS SUMMARY | 2025-02-23 11:53 | XMS_ITS | Encounter Summary ---
Author Organization [employer] ([place], [place], [place], [place]) Address [address] [place] [address] Care Team Providers Care Transitional Care Nurse Name Role Phone Unavailable Primary Care Provider Unavailabl e Encounter Details Date Type Department Care Team (Late st Contact Info) Description 11/25/2018 Transcribed Document [facility] [place] [address] [place] [address] ProviderErika MD [address] [place] [address] Social History Tobacco Use Types Packs/Day Years Used Date Smoking Tobacco: Never Assessed Sex and Gender Information Value Date Recorded Sex Assigned at Not on file Legal Sex Male 5:03 PM CDT Gender Identity Not on file Sexual Orientation Not on file documented as of this encounter Miscellaneous Notes * Cerner Conversion Note - Historical ProviderMD - 11/25/2018 11:22 AM CDT RX Interventions Entered On: 11/25/2018 12:22 EDT Performed On: 11/25/2018 12:20 EDT by THERESA CAZARES [facility] Clinical Interventions Heparin Per Weight-Based Protocol : Yes THERESA CAZARES [facility] - 11/25/2018 12:20 EDT Heparin Per Weight-Based Protocol Heparin Per Wgt-Based Protocol, Order : Heparin - reviewed initiation with TONJA Randall 3E. wt 79.23 kg, rounded to 80 kg. Dx: DVT/Bridge to warfarin. Initial bolus: 80 Units/kg, 6400 Units Initial rate: 18 Units/kg/hr, 14.4 mL/hr. Heparin Per Wgt-Based Protocol, Value : 177 Dollar Heparin Per Wgt-Based Protocol, Time : 20 Minute(s) THERESA CAZARES RPh - 11/25/2018 12:20 EDT Electronically signed by Parveen [facility] Conversion [employer] Manager Cerner at 12/08/2022 12:35 PM CDT documented in this encounter Plan of Treatment Not on file documented as of this encounter Visit Diagnoses Not on filedocumented in this encounter
--- OUTSIDE RECORDS SUMMARY | 2025-02-23 11:53 | XMS_ITS | Encounter Summary ---
Author Organization [employer] ([place], [place], [place], [place]) Address [address] [place] [address] Care Team Providers Care Clinical Specialist Medical Device Name Role Phone Unavailable Primary Care Provider Unavailabl e Encounter Details Date Type Department Care Team (Late st Contact Info) Description 11/23/2018 Transcribed Document [facility] [place] [address] [place] [address] ProviderErika MD [address] [place] [address] Social History Tobacco Use Types Packs/Day Years Used Date Smoking Tobacco: Never Assessed Sex and Gender Information Value Date Recorded Sex Assigned at Not on file Legal Sex Male 5:03 PM CDT Gender Identity Not on file Sexual Orientation Not on file documented as of this encounter Miscellaneous Notes * Cerner Conversion Note - Historical ProviderMD - 11/23/2018 1:36 PM CDT Ferryboat Ticket Taker Details Entered On: 11/23/2018 16:44 EDT Performed On: 11/23/2018 13:36 EDT by Ana Munoz RN Order Details Transport Mode Order Detail : Portable Isolation Precautions Order Detail : Contact precautions Order Detail : N/A Lift/Transfer : Maximal assist Central Line Order Detail : Yes Room Service : Not Appropriate Arterial Line : No Ana Munoz RN - 11/23/2018 16:44 EDT documented in this encounter Plan of Treatment Not on file documented as of this encounter Visit Diagnoses Not on filedocumented in this encounter
--- OUTSIDE RECORDS SUMMARY | 2025-02-23 11:53 | XMS_ITS | Encounter Summary ---
Author Organization [employer] ([place], [place], [place], [place]) Address [address] [place] [address] Care Team Providers Care Sewing Machines Salesperson Name Role Phone Unavailable Primary Care Provider Unavailabl e Encounter Details Date Type Department Care Team (Late st Contact Info) Description 11/23/2018 Transcribed Document [facility] [place] Medicine [address] [place] [address] ProviderErika MD [address] [place] [address] Social History Tobacco Use Types Packs/Day Years Used Date Smoking Tobacco: Never Assessed Sex and Gender Information Value Date Recorded Sex Assigned at Not on file Legal Sex Male 5:03 PM CDT Gender Identity Not on file Sexual Orientation Not on file documented as of this encounter Miscellaneous Notes * Cerner Conversion Note - Historical ProviderMD - 11/23/2018 1:36 PM CDT Education-Cardiac Topics Entered On: 11/23/2018 16:44 EDT Performed On: 11/23/2018 13:36 EDT by Ana Munoz RN Teaching/Learning Assessment Barriers To Learning : Acuity of Illness, Cognitive deficit Highest Level of Education : University degree(s) Learning Style Preferences Patient : None Learning Style Preferences Family : None Ana Munoz RN - 11/23/2018 16:44 EDT Electronically signed by Christina Saini Conversion Jig Boring Machine Operator For Metal Cerner at 12/08/2022 12:29 PM CDT documented in this encounter Plan of Treatment Not on file documented as of this encounter Visit Diagnoses Not on filedocumented in this encounter
--- OUTSIDE RECORDS SUMMARY | 2025-02-23 11:53 | XMS_ITS | Encounter Summary ---
Author Organization [employer] ([place], [place], [place], [place]) Address [address] [place] [address] Care Team Providers Care Sliver Handler Name Role Phone Unavailable Primary Care Provider Unavailabl e Encounter Details Date Type Department Care Team (Late st Contact Info) Description 11/24/2018 Transcribed Document [facility] [place] [address] [place] [address] ProviderErika MD [address] [place], [place] [id number] Social History Tobacco Use Types Packs/Day Years Used Date Smoking Tobacco: Never Assessed Sex and Gender Information Value Date Recorded Sex Assigned at Not on file Legal Sex Male 5:03 PM CDT Gender Identity Not on file Sexual Orientation Not on file documented as of this encounter Miscellaneous Notes * Cerner Conversion Note - Erika Jose MD - 11/24/2018 10:15 AM CDT Patient: JORGE VILLASENOR Age: 78 years Sex: Male : 1940 Associated Diagnoses: CAD (coronary artery disease), [place] coronary artery; Thrombocytopenia; Coronary artery disease; HTN (hypertension); Hypothyroidism; Aortic insufficiency; RLS (restless legs syndrome); Thoracic ascending aortic aneurysm; Right MCA CVA (cerebral vascular accident) Author: MARIEL ROBLES PA Basic Information POD#8 S/P Resection and Grafting of Ascending Thoracic [...] is very pleasant and voices no complaints. Review of Systems Constitutional: Weakness. Health Status Allergies: Allergies (2) Active Reaction No Known Allergies None Documented No Known Medication Allergies None Documented Physical Examination Intake and Output 24 hour intake: Total 220 ml 24 hour output: Total 350 ml VS/Measurements Vital Measurements 11/24/2018 8:16 EDT Heart Rate, Apical 97 bpm 11/24/2018 8:00 EDT Temperature, Fahrenheit 97.1 Deg F Clinical Temperature, C 36.2 Deg C Systolic Blood Pressure 124 mmHg Diastolic Blood Pressure 66 mmHg Mean Arterial Pressure (MAP)-BMDI 90 Oxygen Saturation 95 % Oxygen Therapy Mode Nasal cannula Oxygen Flow Rate 3 Liter/Min General: Alert and oriented, No acute distress. HENT: Normocephalic. Neck: Supple. Respiratory: Respirations are non-labored. Breath sounds: Diminished. Cardiovascular: Normal rate, 82 beats per minute, Regular rhythm, S1, S2, No edema. Integumentary: Warm, Dry, [place], incision is C/D/I. Neurologic: Alert, left sided paralysis. Orientation: To person, To place, To time. Psychiatric: Cooperative, Appropriate mood & affect. Review / Management Results review: NOV 24 03:27 137 102 H 29 / 98 4.5 28 0.80 \ NOV 24 03:27 \ L 11.7 / H 13.1 272 / L 35.5 \ Blood Gases (Current Encounter/Past 24 Hours) [...] of discharge- CM has sent information to [facility] -Transfer to [facility] 11/24/18 -POD#8 -Awaiting transfer to [facility] -Awaiting response from [facility] EF 55-60% per echo 11/16/18 DVT Prophylaxis: SCDs Diagnosis CAD (coronary artery disease), [place] coronary artery - Admitting, Medical. Thrombocytopenia - [...] CVA (cerebral vascular accident) - Discharge, Medical. Electronically signed by Interface, [facility] Conversion Lean Engineer Cerner at 12/08/2022 12:10 PM CDT documented in this encounter Plan of Treatment Not on file documented as of this encounter Visit Diagnoses Not on filedocumented in this encounter
--- OUTSIDE RECORDS SUMMARY | 2025-02-23 11:53 | XMS_ITS | Encounter Summary ---
Author Organization [employer] ([place], [place], [place], [place]) Address [address] [place] [address] Care Team Providers Care Health Services Coordinator Name Role Phone Unavailable Primary Care Provider Unavailabl e Encounter Details Date Type Department Care Team (Late st Contact Info) Description 11/28/2018 Transcribed Document [facility] Family Medicine [address] [place] [address] ProviderErika MD [address] [place], [place] [id number] Social History Tobacco Use Types Packs/Day Years Used Date Smoking Tobacco: Never Assessed Sex and Gender Information Value Date Recorded Sex Assigned at Not on file Legal Sex Male 5:03 PM CDT Gender Identity Not on file Sexual Orientation Not on file documented as of this encounter Miscellaneous Notes * Cerner Conversion Note - Erika Jose MD - 11/28/2018 9:27 AM CDT Patient: DOTTIE VILLASENOR Age: 78 years Sex: Male : 1940 Associated Diagnoses: CAD (coronary artery disease), [place] coronary artery; Thrombocytopenia; Coronary artery disease; HTN (hypertension); Hypothyroidism; Aortic insufficiency; RLS (restless legs syndrome); Thoracic ascending aortic aneurysm; Right MCA CVA (cerebral vascular accident) Author: JULIO CESAR CARVALHO MD-CAT Basic Information POD#10 S/P Resection and Grafting of Ascending Thoracic [...] 11/27/18: Continued improvement in left arm swelling Review of Systems Constitutional: Weakness. Respiratory: No shortness of breath. Cardiovascular: No chest pain. Neurologic: Alert and oriented X4, left side paralysis. Health Status Allergies: Allergic Reactions (Selected) No Known Allergies No Known Medication Allergies, Allergies (2) Active Reaction No Known Allergies None Documented No Known Medication Allergies None Documented Current medications: (Selected) Inpatient Medications Ordered Avodart: 0.5 mg, Oral, AC Dinner Chap Stick: 1 Application, Topical, Q1H, PRN: Other (See Comment) Colace: 100 mg, Oral, BID Dulcolax Laxative: 10 mg, Rectal, 1-Time, PRN: Constipation DuoNeb 0.5 mg-2.5 mg/3 mL inhalation solution: 3 mL, Nebulized Inhalation, RT_Q4H, PRN: Shortness of Breath Milk of Magnesia 8% oral suspension: 30 mL, Oral, Q8H, PRN: Constipation Normal Saline 250 mL: 250 mL/Hr, IntraVENous Normal Saline Flush: 10 mL, IV Push, Q8H Normal Saline Flush: 10 mL, IV Push, See Comment, PRN: Other (See Comment) Norvasc: 10 mg, Oral, Daily Protonix: 40 mg, IV Push, BID Reglan: 5 mg, IV Push, Q6H, PRN: Nausea/Vomiting Senokot: 17.2 mg, Oral, BID Zofran: 4 mg, IV Push, Q4H, PRN: Nausea acetaminophen: 325 mg, Oral, Q4H, PRN: Fever aspirin: 81 mg, Oral, Daily calcium chloride: 1 Gram, 10 mL, 200 mL/Hr, IV Piggyback, 1-Time, PRN: Other (See Comment) hydrALAZINE: 10 mg, IV Push, Q6H, PRN: Hypertension levothyroxine: 50 mcg, Oral, Daily losartan: 100 mg, Oral, Daily metoprolol tartrate: 50 mg, Oral, Q12H rOPINIRole: 2 mg, Oral, At Bedtime saliva substitutes: 1 [place], Buccal, Q2H, PRN: Other (See Comment) warfarin: 5 mg, Oral, Daily Documented Medications Documented Avodart 0.5 mg oral capsule: 1 Cap, Oral, AC Dinner, 0 Refill(s) levothyroxine 50 mcg (0.05 mg) oral tablet: 1 Tab, Oral, Daily, 60 Tab, 0 Refill(s) losartan 100 mg oral tablet: 1 Tab, Oral, Daily, 0 Refill(s) metoprolol extended release: 50 mg, Oral, Daily, 0 Refill(s) rOPINIRole 2 mg oral tablet: 1 Tab, Oral, At Bedtime, 0 Refill(s), Medications (24) Active Scheduled: (12) #NaCl 0.9% *FLUSH* inj 10 mL 10 mL, IV Push, Q8H amLODIPine 10 mg tab 10 mg 1 Tab, Oral, Daily aspirin 81 mg chew tab 81 mg 1 Tab, Oral, Daily docusate sodium 100 mg cap 100 mg 1 Cap, Oral, BID dutasteride 0.5 mg cap 0.5 mg 1 Cap, Oral, AC Dinner levothyroxine 50 mcg tab 50 mcg 1 Tab, Oral, Daily losartan 50 mg tab 100 mg 2 Tab, Oral, Daily metoprolol tartrate 50 mg tab 50 mg 1 Tab, Oral, Q12H pantoprazole 40 mg inj 40 mg, IV Push, BID rOPINIRole 1 mg tab 2 mg 2 Tab, Oral, At Bedtime senna 8.6 mg tab 17.2 mg 2 Tab, Oral, BID warfarin 5 mg tab 5 mg 1 Tab, Oral, Daily Continuous: (1) NaCl 0.9% 250 mL 250 mL, IntraVENous, 250 mL/Hr PRN: (11) #NaCl 0.9% *FLUSH* inj 10 mL 10 mL, IV Push, See Comment acetaminophen 325 mg tab 325 mg 1 Tab, Oral, Q4H albuterol-ipratropium inh 3 mL 3 mL, Nebulized Inhalation, RT_Q4H bisacodyl 10 mg supp 10 mg 1 Supp, Rectal, 1-Time calcium chloride 1 Gram 10 mL, IV Piggyback, 1-Time hydrALAZINE 20 mg/1 mL inj 10 mg 0.5 mL, IV Push, Q6H magnesium hydroxide 8% liq 30 mL 30 mL, Oral, Q8H metoclopramide 10 mg/2 mL inj 5 mg 1 mL, IV Push, Q6H ondansetron 4 mg/2 mL inj 4 mg 2 mL, IV Push, Q4H padimate O Lip balm stick 1 Application, Topical, Q1H saliva substitute liq 59 mL 1 [place], Buccal, Q2H Problem list: Medical Aneurysm, thoracic aortic / SNOMED CT 7423720929 / Confirmed Aortic valve insufficiency / SNOMED CT 081627197 / Confirmed Arthritis / SNOMED CT 3070230 / Confirmed At risk for sleep apnea / IMO [id number] / Confirmed CAD (coronary artery disease) / SNOMED CT 86434934 / Confirmed HTN - Hypertension / SNOMED CT 3501800226 / Confirmed Hypothyroidism / SNOMED CT 56410771 / Confirmed Frequent urination / SNOMED CT 245205234 / Confirmed Nocturia / SNOMED CT 858235137 / Confirmed Prostate stricture / SNOMED CT 33294694 / Confirmed, Active Problems (13) Aneurysm, thoracic aortic Aortic valve insufficiency Arthritis At risk for sleep apnea CAD (coronary artery disease) Cancer of skin of face Disorder of prostate ( enlarged) Frequent urination HTN - Hypertension Hypothyroidism Nocturia Prostate stricture Restless legs syndrome Physical Examination VS/Measurements Vitals Signs (last 24 hrs) Last Charted Minimum Maximum Temp 97.5 (APR 07 08:34) 97.5 (NOV 28 08:34) 97.5 (NOV 27 09:31) Apical HR H 107 (NOV 27 21:21) H 101 (NOV 27 09:48) H 107 (NOV 27 21:21) Mon HR 106 (NOV 28 08:56) 94 (NOV 28 02:30) 107 (NOV 27 21:18) Resp Rate 18 (NOV 28 05:30) 16 (NOV 27 18:15) 20 (NOV 27 09:31) SBP 98 (NOV 28 08:56) L 70 (NOV 28 08:00) 105 (NOV 27 18:15) DBP L 57 (NOV 28 08:56) L 42 (NOV 28 05:10) 65 (NOV 28 08:30) MAP 69 (NOV 28 08:56) 52 (NOV 28 05:10) 75 (NOV 28 04:14) SpO2 98 (NOV 28 08:56) L 93 (NOV 27 21:18) 99 (NOV 28 08:27) General: No acute distress. Respiratory: Respirations are non-labored. Breath sounds: Diminished. Cardiovascular: Normal rate, 101 beats per minute, Regular rhythm, S1, S2, left upper extremity swelling - improved today. Integumentary: Warm, Dry, [place], incision is C/D/I. Neurologic: Alert, Oriented, left sided paralysis. Psychiatric: Cooperative, Appropriate mood & affect. Review / Management Results review: NOV 28 02:54 137 106 H 47 / H 129 4.7 25 0.90 \ NOV 28 02:54 \ L 7.9 / H 15.4 353 / L 23.6 \ Blood Gases (Current Encounter/Past 24 Hours) No Blood Gas Results Found (Past 24 Hours) Coagulation Results (Current Encounter/Past 24 Hours) PT 20.8 Second(s) [facility] 11/28/2018 09:08 PTT 27.6 Second(s) 11/28/2018 08:53 INR 2.0 [facility] 11/28/2018 09:08 . Impression and Plan Plan: 11/17/18 -POD#1 [...] of discharge- CM has sent information to [facility] -Transfer to [facility] 11/24/18 -POD#8 -Awaiting transfer to [facility] -Awaiting response from [facility] 11/25/18 -left upper extremity venous doppler - doppler this am positive for LUE DVT - will start coumadin and heparin bridge -awaiting [facility] 11/26/18 -Heparin drip and coumadin for LUE DVT Left arm swelling improved today INR 1.1 today, INR goal 2-3 Possibly transfer to [facility] this weekend 11/27/18: Left arm swelling continues to improve Continues on Coumadin and heparin bridge INR: 1.4 (1.1 yesterday) goal: 2 to 3 [facility] soon,? Tomorrow 11/28/18 BP in 70s-80s this AM He had a dark black stool and has had a couple of fluid boluses Heparin was D/C'd and his INR is 2.0 this AM (on coumadin 5mg qd) Hct is down to 23.6 GI med has been consulted and he is to undergo EGD Also some blood has been set up. Transferred to [facility] EF 55-60% per echo 11/16/18 DVT Prophylaxis: SCDs Diagnosis CAD (coronary artery disease), [place] coronary artery - Admitting, Medical. Thrombocytopenia - [...] CVA (cerebral vascular accident) - Discharge, Medical. documented in this encounter Plan of Treatment Not on file documented as of this encounter Visit Diagnoses Not on filedocumented in this encounter
--- OUTSIDE RECORDS SUMMARY | 2025-02-23 11:53 | XMS_ITS | Clinical Summary ---
Author Organization [facility] Address [address] [place] [address] Care Team Providers Care Cable Installer Repairer Name Role Phone Clifford Horner MD Primary Care Provider [phone] Allergies No known active allergies Medications dutasteride (Avodart) 0.5 MG capsule Take 1 capsule (0.5 mg) by mouth 1 (one) time each day. 07/04/2024 Active losartan (Cozaar) 100 MG tablet Take 1 tablet (100 mg) by mouth 1 (one) time each day. 05/22/2024 Active levothyroxine (Synthroid, Levoxyl) 50 MCG tablet Take 1 tablet (50 mcg) by mouth 1 (one) time each day. Active aspirin (Aspir-Low) 81 MG EC tablet 01/31/2019 Active carvedilol (Coreg) 3.125 MG tablet Take 1 tablet (3.125 mg) by mouth 2 (two) times a day with meals. 05/27/2024 Active ciprofloxacin (Cipro) 500 MG tablet Take 1 tablet (500 mg) by mouth 2 (two) times a day. 05/29/2024 Active metoprolol tartrate (Lopressor) 25 MG tablet 01/31/2019 Active rOPINIRole (Requip) 4 MG tablet Take 1 tablet (4 mg) by mouth every night. 02/06/2024 Active Baclofen 5 MG tablet Take 2 tablets (10 mg) by mouth every night. 90 tablet 2 07/19/2024 Active Active Problems Problem Noted Date Diagnosed Date Left spastic hemiparesis 08/11/2024 Family History Medical History Relation Name Comments Colon cancer Father Colon cancer Other Relation Name Status Comments Father Other Social History Tobacco Use Types Packs/Day Years Used Date Smoking Tobacco: Former PHQ-2 Answer Date Recorded Patient Health Questionnaire-2 Score 0 07/19/2024 Sex and Gender Information Value Date Recorded Sex Assigned at Not on file Legal Sex Male 8:11 PM EDT Gender Identity Not on file Sexual Orientation Not on file Last Filed Vital Signs Vital Sign Reading Time Taken Comments Blood Pressure 177/106 08/11/2024 12:35 PM EST Pulse 72 08/11/2024 12:35 PM EST Temperature 36.4 C (97.6 F) 07/28/2018 2:04 PM EST Respiratory Rate 18 08/11/2024 12:35 PM EST Oxygen Saturation 96% 08/11/2024 12:35 PM EST Inhaled Oxygen Concentration - - Weight 90.7 kg (200 lb) 08/11/2024 12:35 PM EST Height 182.9 cm (6') 08/11/2024 12:35 PM EST Body Mass Index 27.12 08/11/2024 12:35 PM EST Plan of Treatment Health Maintenance Due Date Last Done Comments [facility]-Medicare Annual Wellness (AWV) 1940 [facility]-Infant/Child/Adol SDOH Screenings 1940 [facility]- SDOH Screenings 1957 [facility]-Adult SDOH Screenings 1958 [facility]-DTaP,Tdap,and Td Vaccine s (1 - Tdap) 1959 [facility]-RSV Vaccine: 60+ Years o r (1 - 1-dose 75+ series) 2014 [facility]-CGHCO-09 Vaccine (3 - Moderna risk series) 02/11/2021 01/14/2021, 12/17/2020 [facility]-Influenza Vaccine (#1) 2025 07/12/2024 [facility]-Pneumococcal Vaccine: 50 + Years (2 of 2 - PCV) 07/12/2025 07/12/2024 [facility]-Depression Screening 07/19/2025 07/19/2024 [facility]-Zoster Vaccines Completed 06/25/2022, 01/17/2022 [facility]-Obesity Intervention Completed 024, 07/19/2024 HPV Vaccines Aged Out No longer eligi ble based on patient's age to complete this topic [facility]-HIB Vaccines Aged Out No longer e ligible based on patient's age to complete this topic [facility]-Hepatitis A Vaccines Aged Out No longer eligible based on patient's age to complete this topic [facility]-IPV Vaccines Aged Out No longer e ligible based on patient's age to complete this topic [facility]-Rotavirus Vaccines Aged Out No lo nger eligible based on patient's age to complete this topic Insurance MEDICARE Care Teams Cable Installer Repairer Relationship Specialty Start Date End Date Clifford Horner MD [address] [facility] [address] [place] [address] PCP - General 07/14/24
--- OUTSIDE RECORDS SUMMARY | 2025-02-23 11:53 | XMS_ITS | Encounter Summary ---
Author Organization [employer] ([place], [place], [place], [place]) Address [address] [place] [address] Care Team Providers Care Dishtank Operator Name Role Phone Unavailable Primary Care Provider Unavailabl e Encounter Details Date Type Department Care Team (Late st Contact Info) Description 11/24/2018 Transcribed Document [facility] [place] [address] [place] [address] ProviderErika MD [address] [place] [address] Social History Tobacco Use Types Packs/Day Years Used Date Smoking Tobacco: Never Assessed Sex and Gender Information Value Date Recorded Sex Assigned at Not on file Legal Sex Male 5:03 PM CDT Gender Identity Not on file Sexual Orientation Not on file documented as of this encounter Miscellaneous Notes * [employer]ner Conversion Note - Historical ProviderMD - 11/24/2018 3:37 PM CDT Attempt to Treat, OT Entered On: 11/24/2018 15:38 EDT Performed On: 11/24/2018 15:37 EDT by RASHIDA HAQ OTR/L Attempt to Treat Unable to Treat Due To : Patient Unavailable Inability to Treat Comment : Discussed with RN and RN states pt is not available due to in process of moving from CVT 3 to 300. RASHIDA HAQ OTR/L - 11/24/2018 15:37 EDT documented in this encounter Plan of Treatment Not on file documented as of this encounter Visit Diagnoses Not on filedocumented in this encounter
--- OUTSIDE RECORDS SUMMARY | 2025-02-23 11:53 | XMS_ITS | Encounter Summary ---
Author Organization [employer] ([place], [place], [place], [place]) Address [address] [place] [address] Care Team Providers Care Rigging Up Worker Name Role Phone Unavailable Primary Care Provider Unavailabl e Encounter Details Date Type Department Care Team (Late st Contact Info) Description 11/18/2018 Transcribed Document [facility] [place] Family Medicine [address] [place] [address] ProviderErika MD [address] [place] [address] Social History Tobacco Use Types Packs/Day Years Used Date Smoking Tobacco: Never Assessed Sex and Gender Information Value Date Recorded Sex Assigned at Not on file Legal Sex Male 5:03 PM CDT Gender Identity Not on file Sexual Orientation Not on file documented as of this encounter Miscellaneous Notes * [employer]ner Conversion Note - Historical ProviderMD - 11/18/2018 5:00 AM CDT Height and Weight, Routine Entered On: 11/18/2018 4:42 EDT Performed On: 11/18/2018 5:00 EDT by DANYA GILES RN Height and Weight, Routine Routine Weight Source : Bed scale Routine Weight Entry Format : Metric Routine Weight, Kilograms : 82.4 kg(Converted to: 181 lb 11 oz) Routine Weight Calculation : 82.4 kg Height Source : Measured Height Entry Format : Sebastian Height, Feet : 6 ft Height, Inches : 1 Inch Clinical Height : 185.42 cm Body Surface Area (BSA), Routine : 2.07 m2 Body Mass Index (BMI), Routine : 23.97 kg/m2 DANYA GILES RN - 11/18/2018 4:42 EDT documented in this encounter Plan of Treatment Not on file documented as of this encounter Visit Diagnoses Not on filedocumented in this encounter
--- OUTSIDE RECORDS SUMMARY | 2025-02-23 11:53 | XMS_ITS | Encounter Summary ---
Author Organization [employer] ([place], [place], [place], [place]) Address [address] [place] [address] Care Team Providers Care Bill Recapitulation Clerk Name Role Phone Unavailable Primary Care Provider Unavailabl e Encounter Details Date Type Department Care Team (Late st Contact Info) Description 11/25/2018 Transcribed Document [facility] [place] Family Medicine [address] [place] [address] ProviderErika MD [address] [place] [address] Social History Tobacco Use Types Packs/Day Years Used Date Smoking Tobacco: Never Assessed Sex and Gender Information Value Date Recorded Sex Assigned at Not on file Legal Sex Male 5:03 PM CDT Gender Identity Not on file Sexual Orientation Not on file documented as of this encounter Miscellaneous Notes * Cerner Conversion Note - Historical ProviderMD - 11/25/2018 3:00 AM CDT Nutrition Assessment Entered On: 11/25/2018 13:02 EDT Performed On: 11/25/2018 13:01 EDT by DAVION GREEN, RD, LD Nutrition Assessment Current Nutrition Regimen Comment : 11/25: Spoke with pt and family- reports good appetite and intake, eating almost all his lunch. Likes vanilla and chocolate ensures 11/22: Pt remains on TF, tolerating Jevity 1.5 at goal rate. Did have BM yesterday. RESIN COATER okayed pt for po diet this am- follow up after breakfast and pt had eating 50% of meal. Pt stated he would enjoy ensure as well. Spoke with RN about observing 1-2 more meals before removing corpak and speaking with MD as well. DX: CAD, AAA, KATHRYN PMH: HTN, restless leg syndrome, hx of skin ca LABS: BUN 29, WBC 11.5 MEDS: senna, SSI SKIN: sternum midline incision; 1-2+ edema GI: + BM 11/24 Diet: Cardiac, NTL + ensure BID Intake: avg 30% x 3 meals, however pt reports eating ~75% of lunch today (family confirmed this) HT: 185cm (6'1) ADMIT WT: 79kg/174# Current Wt: 81.6kg (11/17), 82.4kg (11/18) , 84.3 kg (11/22), 81.8 kg (11/24) BMI: 23 IBW: 79kg/100% EST NEEDS: 8232-3680 kcal (25-30kcal/kg), 95g pro (1.2g/kg) DAVION GREEN RD, TAMMIE - 11/25/2018 15:06 EDT Nutrition Diagnoses Oral or Nutrition Support Intake : Inadequate oral intake Oral or Nutr Support Intake Related To : clinical condition/pt too dowsy for po intake Oral or Nutr Support Intake Evidenced by : avg 30% of meals Oral or Nutrition Support Intake Status : Active DAVION GREEN RD, LD - 11/25/2018 13:03 EDT Nutrition Interventions Meals and Snacks : Liquid consistency-nectar thick liquids, Sodium modified diet Nutrition Supplement Therapy : Commercial beverage DAVION GREEN RD, LD - 11/25/2018 13:03 EDT Monitoring/Evaluation Energy Intake : Total energy intake Food Intake : Amount of food Protein Intake : Total protein Weight Status : Weight Maintanence DAVION GREEN RD, LD - 11/25/2018 13:03 EDT Nutrition Recommendations Dietitian Recommendations : 1. Continue po diet, encourage intake. Will increase Ensure to TID Goal: increase po intake of meals 2. Obtain wt 2x weekly goal: no significant unintended changes Moderate risk DAVION GREEN RD, TAMMIE - 11/25/2018 15:06 EDT Electronically signed by Christina Saini Conversion Radar Air Traffic Controller Cerner at 12/08/2022 12:13 PM CDT documented in this encounter Plan of Treatment Not on file documented as of this encounter Visit Diagnoses Not on filedocumented in this encounter
--- OUTSIDE RECORDS SUMMARY | 2025-02-23 11:53 | XMS_ITS | Encounter Summary ---
Author Organization [employer] ([place], [place], [place], [place]) Address [address] [place] [address] Care Team Providers Care Senior Medical Billing Specialist Name Role Phone Unavailable Primary Care Provider Unavailabl e Encounter Details Date Type Department Care Team (Late st Contact Info) Description 12/01/2018 Transcribed Document [facility] [place] [place] Family Medicine [address] [place] [address] ProviderErika MD [address] [place] [address] Social History Tobacco Use Types Packs/Day Years Used Date Smoking Tobacco: Never Assessed Sex and Gender Information Value Date Recorded Sex Assigned at Not on file Legal Sex Male 5:03 PM CDT Gender Identity Not on file Sexual Orientation Not on file documented as of this encounter Miscellaneous Notes * Cerner Conversion Note - Historical ProviderMD - 12/01/2018 5:00 AM CDT Chart Check - Review Order Profile Entered On: 12/01/2018 3:05 EDT Performed On: 12/01/2018 5:00 EDT by Dixie Fox RN Chart Check Powerplans Initiated/Discontinued as Appropriate : Yes All Active Orders Reviewed : Yes Dixie Fox RN - 12/01/2018 3:05 EDT Electronically signed by Christina Saini Conversion Building Guard Deputy Sheriff Cerner at 12/08/2022 12:10 PM CDT documented in this encounter Plan of Treatment Not on file documented as of this encounter Visit Diagnoses Not on filedocumented in this encounter
--- OUTSIDE RECORDS SUMMARY | 2025-02-23 11:53 | XMS_ITS | Encounter Summary ---
Author Organization [employer] ([place], [place], [place], [place]) Address [address] [place] [address] Care Team Providers Care Bilingual Hr Generalist Name Role Phone Unavailable Primary Care Provider Unavailabl e Encounter Details Date Type Department Care Team (Late st Contact Info) Description 12/01/2018 Transcribed Document [facility] Family Medicine [address] [place] [address] ProviderErika MD [address] [place] [address] Social History Tobacco Use Types Packs/Day Years Used Date Smoking Tobacco: Never Assessed Sex and Gender Information Value Date Recorded Sex Assigned at Not on file Legal Sex Male 5:03 PM CDT Gender Identity Not on file Sexual Orientation Not on file documented as of this encounter Miscellaneous Notes * Cerner Conversion Note - Erika Jose MD - 12/01/2018 1:54 PM CDT [facility] [place] [address] DOTTIE VILLASENOR :1940 Visit Time:11/16/2018 Your Visit Summary Your Care Team Admitting Physician - JULIO CESAR CARVALHO MD-CAT Attending Physician - JULIO CESAR CARVALHO MD-YADIRA Primary Care Physician - DEMETRICE ARMIJO NP-FAM Referring Physician - DEMETRICE ARMIJO NP-FAM Your Diagnosis Acute blood loss anemia Aortic insufficiency, Aortic insufficiency CAD (coronary artery disease), [place] coronary artery, Coronary artery disease GI bleed HTN (hypertension) Hypothyroidism LUE DVT (deep venous thrombosis) Right MCA CVA (cerebral vascular accident) RLS (restless legs syndrome) Thoracic aortic aneurysm, ruptured, Thoracic aortic aneurysm, ruptured Thoracic ascending aortic aneurysm, Thoracic ascending aortic aneurysm Thrombocytopenia Discharge Vitals Heart Rate (Monitored) 98 Blood Pressure 106/55 What to do next Instructions From Your Care Team [facility]Stroke [facility] RN report #[phone] DC Summary #[phone] You may shower. Make sure your back stays facing the shower head until you are ready to rinse. Use antibacterial soap and water daily. DO NOT soak in water or apply any antibiotic ointments or lotions. You may resume your usual bathing routine when all the scabs have fallen off and you are left with a pink scar. Any remaining stitches will be removed at the follow-up with your surgeon. Take your temperature daily. IF you have a fever greater than [address], call the surgeon. DO NOT drive for 6 weeks or operate any heavy machinery. MAKE sure you are having a bowel movement every 3 days while taking narcotic pain medication. Discharge Activity: Discharge Activity: Activity as tolerated Diet: Discharge Diet: Resume usual diet as tolerated Follow-Up Appointments Follow Up with JULIO CESAR DEY When 12/20/2018 01:15 PM EDT Where: [address] [place] [place] [address]- Business (1) Follow Up with JULIO CESAR CARVALHO When 12/15/2018 12:15 PM EDT Where: [address] [place] [address] Business (1) Follow Up with DEMETRICE ARMIJO When Within 1 week Comments When you are discharged from [facility] please call to make a 1 week hospital follow-up appointment. Where: [address] [place] [address]- Follow Up with JOHN BOWEN When Within 6 weeks Comments Patient should call for a follow up appointment with [facility]. Where: [address] [place] [address]- Business (1) Medications What How Much When Instructions Next Dose New acetaminophen (acetaminophen 325 mg oral tablet) 1 Tablet(s) Oral Every 4 Hours as needed for Fever New albuterol-ipratropium (DuoNeb 0.5 mg-2.5 mg/ 3 mL inhalation solution) 3 Milliliter(s) Nebulized Inhalation Every 4 Hours as needed for Shortness of Breath New amLODIPine (Norvasc 10 mg oral tablet) 1 Tablet(s) Oral Every Day New atorvastatin (Lipitor 20 mg oral tablet) 1 Tablet(s) Oral At Bedtime New docusate (Colace 100 mg oral capsule) 1 Capsule(s) Oral Two Times A Day New emollients, topical (Chap Stick) 1 Application(s) Topical Every Hour as needed for Other (See Comment) New magnesium hydroxide (Milk of Magnesia 8% oral suspension) 30 Milliliter(s) Oral Every 8 Hours as needed for Constipation New metoclopramide (Reglan) 5 Milligram(s) Intravenous Push Every 6 Hours as needed for Nausea/Vomiting New miSOPROStol (Cytotec 100 mcg oral tablet) 1 Tablet(s) Oral Four Times A Day New ondansetron (Zofran 2 mg/ mL injectable solution) 2 Milliliter(s) Intravenous Push Every 4 Hours as needed for Nausea New pantoprazole (pantoprazole 40 mg oral delayed release tablet) 1 Tablet(s) Oral Two Times A Day New sucralfate (Carafate 1 g/ 10 mL oral suspension) 10 Milliliter(s) Oral Before Meals and at Bedtime Changed metoprolol (Metoprolol Tartrate 25 mg oral tablet) 1 Tablet(s) Oral Two Times A Day Changed rOPINIRole (rOPINIRole 1 mg oral tablet) 2 Tablet(s) Oral Two Times A Day Unchanged dutasteride (Avodart 0.5 mg oral capsule) 1 Capsule(s) Oral Before Dinner Unchanged levothyroxine (levothyroxine 50 mcg (0.05 mg) oral tablet) 1 Tablet(s) Oral Every Day Unchanged losartan (losartan 100 mg oral tablet) 1 Tablet(s) Oral Every Day Take your medications faithfully. Do NOT skip [...] cramping, rapid heartbeat, difficulty sleeping, and nervousness. Please dispose of unused and medications per your retail pharmacy guidance. Allergies No Known Allergies No Known Medication Allergies Immunizations This Visit No Immunizations Found Stroke/TIA Instructions Individualized Stroke Risk Factors Individualized Stroke Risk Factors *Q: Coronary artery disease, High cholesterol, Previous stroke Stroke/TIA Signs/Symptoms to Report Immediately: Sudden onset difficulty speaking, Sudden onset difficulty understanding speech, Sudden onset change in vision, Sudden onset weakness particulary on one side of the body, Sudden onset numbness/tingling, Sudden severe headache, Sudden dizziness or trouble with gait, Call : EMS activation is crucial Mutually Agreed Upon Goals My LDL Level: My LDL Level: Education Materials Smoking Hazards Smoking cigarettes is extremely bad for your health. Tobacco smoke has over 200 known poisons in it. It contains the poisonous gases nitrogen oxide and carbon monoxide. There are over 60 chemicals in tobacco smoke that cause cancer. Some of the chemicals found in cigarette smoke include: ??? Cyanide. ??? Benzene. ??? Formaldehyde. ??? Methanol (wood alcohol). ??? Acetylene (fuel used in welding torches). ??? Ammonia. Even smoking lightly shortens your life expectancy by several years. You can greatly reduce the risk of medical problems for you and your family by stopping now. Smoking is the most preventable cause of and disease in our society. Within days of quitting smoking, your circulation improves, you decrease the risk of having a heart attack, and your lung capacity improves. There may be some increased phlegm in the first few days after quitting, and it may take months for your lungs to clear up completely. Quitting for 10 years reduces your risk of developing lung cancer to almost that of a nonsmoker. WHAT ARE THE RISKS OF SMOKING? Cigarette smokers have an increased risk of many serious medical problems, including: ??? Lung cancer. ??? Lung disease (such as pneumonia, bronchitis, and emphysema). ??? Heart attack and chest pain due to the heart not getting enough oxygen (angina). ??? Heart disease and peripheral blood vessel disease. ??? Hypertension. ??? Stroke. ??? Oral cancer (cancer of the lip, mouth, or voice box). ??? Bladder cancer. ??? Pancreatic cancer. ??? Cervical cancer. ??? complications, including premature . ??? Stillbirths and smaller babies, defects, and genetic damage to sperm. ??? Early menopause. ??? Lower estrogen level for women. ??? Infertility. ??? Facial wrinkles. ??? Blindness. ??? Increased risk of broken bones (fractures). ??? Senile dementia. ??? Stomach ulcers and internal bleeding. ??? Delayed wound healing and increased risk of complications during surgery. Because of secondhand smoke exposure, children of smokers have an increased risk of the following: ??? Sudden syndrome (SIDS). ??? Respiratory infections. ??? Lung cancer. ??? Heart disease. ??? Ear infections. WHY IS SMOKING ADDICTIVE? Nicotine is the chemical agent in tobacco that is capable of causing addiction or dependence. When you smoke and inhale, nicotine is absorbed rapidly into the bloodstream through your lungs. Both inhaled and noninhaled nicotine may be addictive. WHAT ARE THE BENEFITS OF QUITTING? There are many health benefits to quitting smoking. Some are: ??? The likelihood of developing cancer and heart disease decreases. Health improvements are seen almost immediately. ??? Blood pressure, pulse rate, and breathing patterns start returning to normal soon after quitting. ??? People who quit may see an improvement in their overall quality of life. HOW DO YOU QUIT SMOKING? Smoking is an addiction with both physical and psychological effects, and longtime habits can be hard to change. Your health care provider can recommend: ??? Programs and community resources, which may include group support, education, or therapy. ??? Replacement products, such as patches, gum, and nasal sprays. Use these products only as directed. Do not replace cigarette smoking with electronic cigarettes (commonly called e-cigarettes). The safety of e-cigarettes is unknown, and some may contain harmful chemicals. FOR MORE INFORMATION ??? [place] [employer]: www.lung.org ??? [place] [employer]: www.cancer.org This information is not intended to replace advice given to you by your health care provider. Make sure you discuss any questions you have with your health care provider. Document Released: 09/17/2005 Document Revised: 12/01/2016 Document Reviewed: 01/30/2014 [employer] Patient Education ?? 2017 [employer] How to Take Your Blood Pressure HOW DO I GET A BLOOD PRESSURE MACHINE? You can buy an electronic home blood pressure machine at your local pharmacy. Insurance will sometimes cover the cost if you have a prescription. ??? Ask your doctor what type of machine is best for you. There are different machines for your arm and your wrist. ??? If you decide to buy a machine to check your blood pressure on your arm, first check the size of your arm so you can buy the right size cuff. To check the size of your arm: ? Use a measuring tape that shows both inches and centimeters. ? Wrap the measuring tape around the upper-middle part of your arm. You may need someone to help you measure. ? Write down your arm measurement in both inches and centimeters. ??? To measure your blood pressure correctly, it is important to have the right size cuff. ? If your arm is up to 13 inches (up to 34 centimeters), get an adult cuff size. ? If your arm is 13 to 17 inches (35 to 44 centimeters), get a large adult cuff size. ? If your arm is 17 to 20 inches (45 to 52 centimeters), get an adult thigh cuff. WHAT DO THE NUMBERS MEAN? There are two numbers that make up your blood pressure. For example: 120/80. ? The first number (120 in our example) is called the systolic pressure. It is a measure of the pressure in your blood vessels when your heart is pumping blood. ? The second number (80 in our example) is called the diastolic pressure. It is a measure of the pressure in your blood vessels when your heart is resting between beats. ??? Your doctor will tell you what your blood pressure should be. WHAT SHOULD I DO BEFORE I CHECK MY BLOOD PRESSURE? Try to rest or relax for at least 30 minutes before you check your blood pressure. ??? Do notsmoke. ??? Do nothave any drinks with caffeine, such as: ? Soda. ? Coffee. ? Tea. ??? Check your blood pressure in a quiet room. ??? Sit down and stretch out your arm on a table. Keep your arm at about the level of your heart. Let your arm relax. ??? Make sure that your legs are not crossed. HOW DO I CHECK MY BLOOD PRESSURE? Follow the directions that came with your machine. ??? Make sure you remove any tight-fitting clothing from your arm or wrist. Wrap the cuff around your upper arm or wrist. You should be able to fit a finger between the cuff and your arm. If you cannot fit a finger between the cuff and your arm, it is too tight and should be removed and rewrapped. ??? Some units require you to manually pump up the arm cuff. ??? Automatic units inflate the cuff when you press a button. ??? Cuff deflation is automatic in both models. ??? After the cuff is inflated, the unit measures your blood pressure and pulse. The readings are shown on a monitor. Hold still and breathe normally while the cuff is inflated. ??? Getting a reading takes less than a minute. ??? Some models store readings in a memory. Some provide a printout of readings. If your machine does not store your readings, keep a written record. ??? Take readings with you to your next visit with your doctor. This information is not intended to replace advice given to you by your health care provider. Make sure you discuss any questions you have with your health care provider. Document Released: 07/23/2009 Document Revised: 08/31/2015 Document Reviewed: 10/05/2014 [employer] Interactive Patient Education ?? 2017 [employer] How to Take a Pulse Your pulse is the increase in pressure inside the blood vessels that carry blood from your heart to the rest of your body (arteries). Every time your heart beats, you can feel your pulse in an artery near the surface of your skin. You can easily feel your pulse in the artery in your wrist (radial artery) and in the artery in your neck (carotid artery). Taking your pulse can tell you how fast your heart is beating and whether it has a normal rhythm. You can also tell whether your heart is beating strongly or weakly. What you need to know about pulse rates Your pulse is the same as your heart rate. Both are measured in beats per minute (bpm). A normal resting heart rate varies depending on a person's age. ??? Infants under 1 year of age: Normal heart rate of 100???160 bpm. ??? Children 1???2 years of age: Normal heart rate of 90???150 bpm. ??? Children 2???5 years of age: Normal heart rate of 80???140 bpm. ??? Children 6???12 years of age: Normal heart rate of 70???120 bpm. ??? Everyone over 12 years of age: Normal heart rate of 60???100 bpm. There can be a lot of variation in your pulse. It can be different depending on the time of day or the amount of exercise that you get. It changes with your fitness level. Many things can change the speed and regularity of your pulse. These include: ??? Exercise. ??? Fever. ??? Stress. ??? Heart problems. ??? Poor circulation. ??? Medicines. How to take your pulse To take your pulse, all you need is a digital stopwatch or a clock or watch that has a second hand. The best time to measure your resting pulse is in the morning before you start moving around. Take it as soon as you wake up or after resting for about 10 minutes. There are no firm rules about how often to check your pulse. In general, it is a good idea to check your pulse at least once a month. Measuring your pulse is a good way to check your heart health. Checking your pulse before and after exercise can tell you if you are getting the right amount of exercise. This is called finding your target heart rate. Your target heart rate depends on your age, fitness, and health. Ask your health care provider what would be a safe target heart rate for you during exercise. Radial PulseTo check the pulse in your radial artery: 1. Turn one hand palm-up and relax your arm. 2. Place the first two fingers of your other hand gently over your wrist, just below the base of your thumb. 3. Place your fingertips just inside the bone that runs along the outside of your arm. 4. Slowly increase pressure until you feel a pulsing beneath your fingers. You may need to move your fingers slightly. 5. Do notpress too hard. Too much pressure may cut off blood supply. 6. Count how many pulse beats you feel in 1 minute. Or, count how many pulse beats you feel in 30 seconds and double that number. 7. Pay attention to the rhythm of the pulse. It should be steady and even. Carotid PulseTo check the pulse in your carotid artery: 1. Place two fingers just to one side of your Duc???s apple so that you feel a pulsing beneath your fingers. 2. Do notpress too hard. Too much pressure may cut off blood supply and can make you dizzy. 3. Count how many pulse beats you feel in 1 minute. Or, count how many pulse beats you feel in 30 seconds and double that number. 4. Pay attention to the rhythm of the pulse. It should be steady and even. Contact a health care provider if: ??? Your pulse is too slow or too fast. ??? Your pulse is weak or hard to find. ??? You have skipped beats or extra beats. ??? Your pulse has an irregular rhythm. ??? You have an abnormal pulse along with dizziness, fatigue, or shortness of breath. This information is not intended to replace advice given to you by your health care provider. Make sure you discuss any questions you have with your health care provider. Document Released: 02/14/2004 Document Revised: 02/27/2017 Document Reviewed: 01/13/2017 [employer] Interactive Patient Education ?? 2017 [employer] Coronary Artery Bypass Grafting, Care After Refer to this sheet in the next few weeks. These instructions provide you with information on caring for yourself after your procedure. Your health care provider may also give you more specific instructions. Your treatment has been planned according to current medical practices, but problems sometimes occur. Call your health care provider if you have any problems or questions after your procedure. WHAT TO EXPECT AFTER THE PROCEDURE Recovery from surgery will be different for everyone. Some people feel well after 3 or 4 weeks, while for others it takes longer. After your procedure, it is typical to have the following: ??? Nausea and a lack of appetite. ??? Constipation. ??? Weakness and fatigue. ??? Depression or irritability. ??? Pain or discomfort at your incision site. HOME CARE INSTRUCTIONS ??? Take medicines only as directed by your health care provider. Do not stop taking medicines or start any new medicines without first checking with your health care provider. ??? Take your pulse as directed by your health care provider. ??? Perform deep breathing as directed by your health care provider. If you were given a device called an incentive spirometer, use it to practice deep breathing several times a day. Support your chest with a pillow or your arms when you take deep breaths or cough. ??? Keep incision areas clean, dry, and protected. Remove or change any bandages (dressings) only as directed by your health care provider. You may have skin adhesive strips over the incision areas. Do not take the strips off. They will fall off on their own. ??? Check incision areas daily for any swelling, redness, or drainage. ??? If incisions were made in your legs, do the following: ? Avoid crossing your legs. ? Avoid sitting for long periods of time. Change positions every 30 minutes. ? Elevate your legs when you are sitting. ??? Wear compression stockings as directed by your health care provider. These stockings help keep blood clots from forming in your legs. ??? Take showers once your health care provider approves. Until then, only take sponge baths. Pat incisions dry. Do not rub incisions with a washcloth or towel. Do not take baths, swim, or use a hot tub until your health care provider approves. ??? Eat foods that are high in fiber, such as raw fruits and vegetables, whole grains, beans, and nuts. Meats should be lean cut. Avoid canned, processed, and fried foods. ??? Drink enough fluid to keep your urine clear or pale yellow. ??? Weigh yourself every day. This helps identify if you are retaining fluid that may make your heart and lungs work harder. ??? Rest and limit activity as directed by your health care provider. You may be instructed to: ? Stop any activity at once if you have chest pain, shortness of breath, irregular heartbeats, or dizziness. Get help right away if you have any of these symptoms. ? Move around frequently for short periods or take short walks as directed by your health care provider. Increase your activities gradually. You may need physical therapy or cardiac rehabilitation to help strengthen your muscles and build your endurance. ? Avoid lifting, pushing, or pulling anything heavier than 10 lb (4.5 kg) for at least 6 weeks after surgery. ??? Do not drive until your health care provider approves. ??? Ask your health care provider when you may return to work. ??? Ask your health care provider when you may resume sexual activity. ??? Keep all follow-up visits as directed by your health care provider. This is important. SEEK MEDICAL CARE IF: ??? You have swelling, redness, increasing pain, or drainage at the site of an incision. ??? You have a fever. ??? You have swelling in your ankles or legs. ??? You have pain in your legs. ??? You gain 2 or more pounds (0.9 kg) a day. ??? You are nauseous or vomit. ??? You have diarrhea. SEEK IMMEDIATE MEDICAL CARE IF: ??? You have chest pain that goes to your jaw or arms. ??? You have shortness of breath. ??? You have a fast or irregular heartbeat. ??? You notice a clicking in your breastbone (sternum) when you move. ??? You have numbness or weakness in your arms or legs. ??? You feel dizzy or light-headed. MAKE SURE YOU: ??? Understand these instructions. ??? Will watch your condition. ??? Will get help right away if you are not doing well or get worse. This information is not intended to replace advice given to you by your health care provider. Make sure you discuss any questions you have with your health care provider. Document Released: 02/27/2006 Document Revised: 08/31/2015 Document Reviewed: 01/17/2014 [employer] Interactive Patient Education ?? 2017 [employer] Bleeding Precautions When on Anticoagulant Therapy WHAT IS ANTICOAGULANT THERAPY? Anticoagulant therapy is taking medicine to prevent or reduce blood clots. It is also called blood thinner therapy. Blood clots that form in your blood vessels can be dangerous. They can break loose and travel to your heart, lungs, or brain. This increases your risk of a heart attack or stroke. Anticoagulant therapy causes blood to clot more slowly. You may need anticoagulant therapy if you have: ??? A medical condition that increases the likelihood that blood clots will form. ??? A heart defect or a problem with heart rhythm. It is also a common treatment after heart surgery, such as valve replacement. WHAT ARE COMMON TYPES OF ANTICOAGULANT THERAPY? Anticoagulant medicine can be injected or taken by mouth. If you need anticoagulant therapy quickly at the hospital, the medicine may be injected under your skin or given through an IV tube. Heparin is a common example of an anticoagulant that you may get at the hospital. Most anticoagulant therapy is in the form of pills that you take at home every day. These may include: ??? Aspirin. This common blood thinner works by preventing blood cells (platelets) from sticking together to form a clot. Aspirin is not as strong as anticoagulants that slow down the time that it takes for your body to form a clot. ??? Clopidogrel. This is a newer type of drug that affects platelets. It is stronger than aspirin. ??? Warfarin. This is the most common anticoagulant. It changes the way your body uses vitamin K, a vitamin that helps your blood to clot. The risk of bleeding is higher with warfarin than with aspirin. You will need frequent blood tests to make sure you are taking the safest amount. ??? New anticoagulants. Several new drugs have been approved. They are all taken by mouth. Studies show that these drugs work as well as warfarin. They do not require blood testing. They may cause less bleeding risk than warfarin. WHAT DO I NEED TO REMEMBER WHEN TAKING ANTICOAGULANT THERAPY? Anticoagulant therapy decreases your risk of forming a blood clot, but it increases your risk of bleeding. Work closely with your health care provider to make sure you are taking your medicine safely. These tips can help: ??? Learn ways to reduce your risk of bleeding. ??? If you are taking warfarin: ? Have blood tests as ordered by your health care provider. ? Do notmake any sudden changes to your diet. Vitamin K in your diet can make warfarin less effective. ? Do notget . This medicine may cause defects. ??? Take your medicine at the same time every day. If you forget to take your medicine, take it as soon as you remember. If you miss a whole day, do not double your dose of medicine. Take your normal dose and call your health care provider to check in. ??? Do notstop taking your medicine on your own. ??? Tell your health care provider before you start taking any new medicine, vitamin, or herbal product. Some of these could interfere with your therapy. ??? Tell all of your health care providers that you are on anticoagulant therapy. ??? Do nothave surgery, medical procedures, or dental work until you tell your health care provider that you are on anticoagulant therapy. WHAT CAN AFFECT HOW ANTICOAGULANTS WORK? Certain foods, vitamins, medicines, supplements, and herbal medicines change the way that anticoagulant therapy works. They may increase or decrease the effects of your anticoagulant therapy. Either result can be dangerous for you. ??? Many zdrw-uet-ijzicfw medicines for pain, colds, or stomach problems interfere with anticoagulant therapy. Take these only as told by your health care provider. ??? Do notdrink alcohol. It can interfere with your medicine and increase your risk of an injury that causes bleeding. ??? If you are taking warfarin, do not begin eating more foods that contain vitamin K. These include leafy green vegetables. Ask your health care provider if you should avoid any foods. WHAT ARE SOME WAYS TO PREVENT BLEEDING? You can prevent bleeding by taking certain precautions: ??? Be extra careful when you use knives, scissors, or other sharp objects. ??? Use an electric razor instead of a blade. ??? Do notuse toothpicks. ??? Use a soft toothbrush. ??? Wear shoes that have nonskid soles. ??? Use bath mats and handrails in your bathroom. ??? Wear gloves while you do yard work. ??? Wear a helmet when you ride a bike. ??? Wear your seat belt. ??? Prevent falls by removing loose rugs and extension cords from areas where you walk. ??? Do notplay contact sports or participate in other activities that have a high risk of injury. WHEN SHOULD I CONTACT MY HEALTH CARE PROVIDER? Call your health care provider if: ??? You miss a dose of medicine: ? And you are not sure what to do. ? For more than one day. ??? You have: ? Menstrual bleeding that is heavier than normal. ? Blood in your urine. ? A bloody nose or bleeding gums. ? Easy bruising. ? Blood in your stool (feces) or have black and tarry stool. ? Side effects from your medicine. ??? You feel weak or dizzy. ??? You become . Seek immediate medical care if: ??? You have bleeding that will not stop. ??? You have sudden and severe headache or belly pain. ??? You vomit or you cough up bright red blood. ??? You have a severe blow to your head. WHAT ARE SOME QUESTIONS TO ASK MY HEALTH CARE PROVIDER? What is the best anticoagulant therapy for my condition? What side effects should I watch for? When should I take my medicine? What should I do if I forget to take it? Will I need to have regular blood tests? Do I need to change my diet? Are there foods or drinks that I should avoid? What activities are safe for me? What should I do if I want to get ? This information is not intended to replace advice given to you by your health care provider. Make sure you discuss any questions you have with your health care provider. Document Released: 07/21/2016 Document Reviewed: 07/21/2016 [employer] Patient Education ?? 2017 [employer]. Atrial Fibrillation Introduction Atrial fibrillation is a type of heartbeat that is irregular or fast (rapid). If you have this condition, your heart keeps quivering in a weird (chaotic) way. This condition can make it so your heart cannot pump blood normally. Having this condition gives a person more risk for stroke, heart failure, and other heart problems. There are different types of atrial fibrillation. Talk with your doctor to learn about the type that you have. Follow these instructions at home: ??? Take wzmf-bxh-zjbmzqe and prescription medicines only as told by your doctor. ??? If your doctor prescribed a blood-thinning medicine, take it exactly as told. Taking too much of it can cause bleeding. If you do not take enough of it, you will not have the protection that you need against stroke and other problems. ??? Do notuse any tobacco products. These include cigarettes, chewing tobacco, and e-cigarettes. If you need help quitting, ask your doctor. ??? If you have apnea (obstructive sleep apnea), manage it as told by your doctor. ??? Do notdrink alcohol. ??? Do notdrink beverages that have caffeine. These include coffee, soda, and tea. ??? Maintain a healthy weight. Do not use diet pills unless your doctor says they are safe for you. Diet pills may make heart problems worse. ??? Follow diet instructions as told by your doctor. ??? Exercise regularly as told by your doctor. ??? Keep all follow-up visits as told by your doctor. This is important. Contact a doctor if: ??? You notice a change in the speed, rhythm, or strength of your heartbeat. ??? You are taking a blood-thinning medicine and you notice more bruising. ??? You get tired more easily when you move or exercise. Get help right away if: ??? You have pain in your chest or your belly (abdomen). ??? You have sweating or weakness. ??? You feel sick to your stomach (nauseous). ??? You notice blood in your throw up (vomit), poop (stool), or pee (urine). ??? You are short of breath. ??? You suddenly have swollen feet and ankles. ??? You feel dizzy. ??? Your suddenly get weak or numb in your face, arms, or legs, especially if it happens on one side of your body. ??? You have trouble talking, trouble understanding, or both. ??? Your face or your eyelid droops on one side. These symptoms may be an emergency. Do not wait to see if the symptoms will go away. Get medical help right away. Call your local emergency services (911 in the [place] Do not drive yourself to the hospital. This information is not intended to replace advice given to you by your health care provider. Make sure you discuss any questions you have with your health care provider. Document Released: 05/19/2009 Document Revised: 01/15/2017 Document Reviewed: 12/05/2015 ?? 2017 [employer] Stroke Prevention Some medical conditions and behaviors [...] health care provider. ? If you are 18???39 years of age, have your blood pressure checked every 3???5 years. If you are 40 years of [...] 09/17/2005 Document Revised: 01/15/2017 Document Reviewed: 02/10/2014 [employer] Patient Education ?? 2017 [employer]. misoprostol (reji ramos) [facility] What is the most important information I should know about misoprostol? Misoprostol can cause defects, premature , uterine rupture, miscarriage, or incomplete miscarriage and dangerous uterine bleeding. Do not use misoprostol if you are . If you are able to become , you will need to have a negative test before starting this treatment. You will also need to use effective control to prevent during treatment. What is misoprostol? Misoprostol reduces stomach acid and helps protect the stomach from damage that can be caused by taking a nonsteroidal anti-inflammatory drug (NSAID) such as aspirin, ibuprofen (Advil, Motrin), naproxen (Aleve), celecoxib, diclofenac, indomethacin, meloxicam, and others. Misoprostol is used to prevent stomach ulcers during treatment with aspirin or an NSAID. Misoprostol may also be used for purposes not listed in this medication guide. What should I discuss with my healthcare provider before taking misoprostol? You should not use this medicine if you are allergic to misoprostol or other prostaglandins, or if you are . To make sure misoprostol is safe for you, tell your doctor if you have: ? inflammatory bowel disease (IBD), irritable bowel syndrome (IBS), or other intestinal problems; ?? heart disease; or ?? if you are dehydrated. FDA category X. Misoprostol can cause defects, premature , uterine rupture, miscarriage, or incomplete miscarriage and dangerous uterine bleeding. Do not use misoprostol if you are . Use effective control to prevent while you are using this medicine, and for at least 1 month after your treatment ends. If you are able to become , you will need to have a negative test before you start taking misoprostol. Treatment with this medicine should begin on the second or third day of your menstrual period. Stop taking this medicine and tell your doctor right away if you become during treatment. It is not known whether misoprostol passes into breast milk or if it could harm a nursing baby. Tell your doctor if you are breast-feeding a baby. How should I take misoprostol? Follow all directions on your prescription label. Do not take this medicine in larger or smaller amounts or for longer than recommended. Do not share this medicine with another person. Misoprostol is usually taken with meals and at bedtime. Follow your doctor's instructions. You may have nausea, stomach cramps, or diarrhea while taking this medicine, especially during the first few weeks after you start taking misoprostol. These symptoms usually last for about a week. Call your doctor if you have severe nausea, stomach pain, or diarrhea lasting longer than 8 days. Read all medication guides or patient instructions provided with this medicine each time your receive a new supply. Store at room temperature away from moisture and heat. What happens if I miss a dose? Take the missed dose as soon as you remember. However, if it is almost time for the next dose, skip the missed dose and take only the next regularly scheduled dose. Do not take a double dose of this medication. What happens if I overdose? Seek emergency medical attention or call the Poison Help line at . What should I avoid while taking misoprostol? Ask your doctor before using an antacid, and use only the type your doctor recommends. Some antacids can increase your risk of diarrhea while you are taking misoprostol. What are the possible side effects of misoprostol? Get emergency medical help if you have any of these signs of an allergic reaction: hives; difficult breathing; swelling of your face, lips, tongue, or throat. Call your doctor at once if you have: ? severe ongoing stomach discomfort or diarrhea; or ?? dehydration symptoms--feeling very thirsty or hot, being unable to urinate, heavy sweating, or hot and dry skin. Common side effects may include: ? diarrhea; ?? stomach pain, nausea, upset stomach, gas; ?? vaginal bleeding or spotting, heavy menstrual flow; or ?? menstrual cramps. This is not a complete list of side effects and others may occur. Call your doctor for medical advice about side effects. You may report side effects to FDA at 9-734-IEC-4991. What other drugs will affect misoprostol? Other drugs may interact with misoprostol, including prescription and jakl-rfk-hdisuqy medicines, vitamins, and herbal products. Tell each of your health care providers about all medicines you use now and any medicine you start or stop using. Where can I get more information? Your pharmacist can provide more information about misoprostol. Remember, keep this and all other medicines out of the reach of children, never share your medicines with others, and use this medication only for the indication prescribed. Every effort has been made to ensure that the information provided by [employer] is accurate, up-to-date, and complete, but no guarantee is made to that effect. Drug information contained herein may be time sensitive. [employer] information has been compiled for use by healthcare practitioners and consumers in the [place] and therefore [employer] does not warrant that uses outside of the [place] are appropriate, unless specifically indicated otherwise. [employer] drug information does not endorse drugs, diagnose patients or recommend therapy. [employer] drug information is an informational resource designed to assist licensed healthcare practitioners in caring for their patients and/or to serve consumers viewing this service as a supplement to, and not a substitute for, the expertise, skill, knowledge and judgment of healthcare practitioners. The absence of a warning for a given drug or drug combination in no way should be construed to indicate that the drug or drug combination is safe, effective or appropriate for any given patient. [employer] does not assume any responsibility for any aspect of healthcare administered with the aid of information [employer] provides. The information contained herein is not intended to cover all possible uses, directions, precautions, warnings, drug interactions, allergic reactions, or adverse effects. If you have questions about the drugs you are taking, check with your doctor, nurse or pharmacist. Copyright 4136-2188 [employer] Version: 8.01. Revision Date: 03/02/2014.sucralfate (oral) (angelica MICHELE fate) Carafate What is the most important information I should know about sucralfate? Follow all directions on your medicine label and package. Tell each of your healthcare providers about all your medical conditions, allergies, and all medicines you use. What is sucralfate? Sucralfate is an anti-ulcer medication. Sucralfate is not greatly absorbed into the body through the digestive tract. It works mainly in the lining of the stomach by adhering to ulcer sites and protecting them from acids, enzymes, and bile salts. Sucralfate is used to treat an active duodenal ulcer. Sucralfate can heal an active ulcer, but it will not prevent future ulcers from occurring. Sucralfate may also be used for purposes not listed in this medication guide. What should I discuss with my healthcare provider before taking sucralfate? You should not use sucralfate if you are allergic to it. To make sure sucralfate is safe for you, tell your doctor if you have: ? diabetes; ?? kidney disease (or if you are on dialysis); or ?? trouble swallowing tablets. FDA category B. Sucralfate is not expected to harm an unborn baby. Tell your doctor if you are or plan to become during treatment. It is not known whether sucralfate passes into breast milk or if it could harm a nursing baby. Tell your doctor if you are breast-feeding a baby. How should I take sucralfate? Follow all directions on your prescription label. Do not take this medicine in larger or smaller amounts or for longer than recommended. Take sucralfate on an empty stomach, at least 1 hour before or 2 hours after a meal. Shake the oral suspension (liquid) well just before you measure a dose. Measure the liquid with a special dose-measuring spoon or medicine cup. If you do not have a dose-measuring device, ask your pharmacist for one. Use this medication for the full prescribed length of time. Your symptoms may improve before the ulcer is completely healed. Store at room temperature away from moisture and heat. What happens if I miss a dose? Take the missed dose as soon as you remember, but avoid taking any other medications within 2 hours before or after you take sucralfate. Skip the missed dose if it is almost time for your next scheduled dose. Do not take extra medicine to make up the missed dose. What happens if I overdose? Seek emergency medical attention or call the Poison Help line at . What should I avoid while taking sucralfate? Avoid taking any other medications within 2 hours before or after you take sucralfate. Sucralfate can make it harder for your body to absorb other medications you take by mouth. Avoid using antacids without your doctor's advice. Use only the type of antacid your doctor recommends. Some antacids can make it harder for sucralfate to work in your stomach. If your doctor does recommend using an antacid, avoid taking it within 30 minutes before or after taking sucralfate. What are the possible side effects of sucralfate? Get emergency medical help if you have any of these signs of an allergic reaction: hives; difficult breathing; swelling of your face, lips, tongue, or throat. Common side effects may include: ? nausea, vomiting, upset stomach; ?? stomach pain; ?? constipation, diarrhea; ?? mild itching or skin rash; ?? sleep problems (insomnia); ?? dizziness, drowsiness, spinning sensation; ?? headache; or ?? back pain. This is not a complete list of side effects and others may occur. Call your doctor for medical advice about side effects. You may report side effects to FDA at 5-963-IJE-6434. What other drugs will affect sucralfate? Sucralfate can make it harder for your body to absorb other medications you take by mouth. Avoid taking any other medications within 2 hours before or after you take sucralfate. Other drugs may interact with sucralfate, including prescription and rbkk-lqq-sipqmgi medicines, vitamins, and herbal products. Tell each of your health care providers about all medicines you use now and any medicine you start or stop using. Where can I get more information? Your pharmacist can provide more information about sucralfate. Remember, keep this and all other medicines out of the reach of children, never share your medicines with others, and use this medication only for the indication prescribed. Every effort has been made to ensure that the information provided by [employer] is accurate, up-to-date, and complete, but no guarantee is made to that effect. Drug information contained herein may be time sensitive. [employer] information has been compiled for use by healthcare practitioners and consumers in the [place] and therefore [employer] does not warrant that uses outside of the [place] are appropriate, unless specifically indicated otherwise. [employer] drug information does not endorse drugs, diagnose patients or recommend therapy. [employer] drug information is an informational resource designed to assist licensed healthcare practitioners in caring for their patients and/or to serve consumers viewing this service as a supplement to, and not a substitute for, the expertise, skill, knowledge and judgment of healthcare practitioners. The absence of a warning for a given drug or drug combination in no way should be construed to indicate that the drug or drug combination is safe, effective or appropriate for any given patient. [employer] does not assume any responsibility for any aspect of healthcare administered with the aid of information [employer] provides. The information contained herein is not intended to cover all possible uses, directions, precautions, warnings, drug interactions, allergic reactions, or adverse effects. If you have questions about the drugs you are taking, check with your doctor, nurse or pharmacist. Copyright 7145-2274 [employer] Version: 8.01. Revision Date: 01/03/2013.sucralfate (oral) (angelica MICHELE fate) Carafate What is the most important information I should know about sucralfate? Follow all directions on your medicine label and package. Tell each of your healthcare providers about all your medical conditions, allergies, and all medicines you use. What is sucralfate? Sucralfate is an anti-ulcer medication. Sucralfate is not greatly absorbed into the body through the digestive tract. It works mainly in the lining of the stomach by adhering to ulcer sites and protecting them from acids, enzymes, and bile salts. Sucralfate is used to treat an active duodenal ulcer. Sucralfate can heal an active ulcer, but it will not prevent future ulcers from occurring. Sucralfate may also be used for purposes not listed in this medication guide. What should I discuss with my healthcare provider before taking sucralfate? You should not use sucralfate if you are allergic to it. To make sure sucralfate is safe for you, tell your doctor if you have: ? diabetes; ?? kidney disease (or if you are on dialysis); or ?? trouble swallowing tablets. FDA category B. Sucralfate is not expected to harm an unborn baby. Tell your doctor if you are or plan to become during treatment. It is not known whether sucralfate passes into breast milk or if it could harm a nursing baby. Tell your doctor if you are breast-feeding a baby. How should I take sucralfate? Follow all directions on your prescription label. Do not take this medicine in larger or smaller amounts or for longer than recommended. Take sucralfate on an empty stomach, at least 1 hour before or 2 hours after a meal. Shake the oral suspension (liquid) well just before you measure a dose. Measure the liquid with a special dose-measuring spoon or medicine cup. If you do not have a dose-measuring device, ask your pharmacist for one. Use this medication for the full prescribed length of time. Your symptoms may improve before the ulcer is completely healed. Store at room temperature away from moisture and heat. What happens if I miss a dose? Take the missed dose as soon as you remember, but avoid taking any other medications within 2 hours before or after you take sucralfate. Skip the missed dose if it is almost time for your next scheduled dose. Do not take extra medicine to make up the missed dose. What happens if I overdose? Seek emergency medical attention or call the Poison Help line at . What should I avoid while taking sucralfate? Avoid taking any other medications within 2 hours before or after you take sucralfate. Sucralfate can make it harder for your body to absorb other medications you take by mouth. Avoid using antacids without your doctor's advice. Use only the type of antacid your doctor recommends. Some antacids can make it harder for sucralfate to work in your stomach. If your doctor does recommend using an antacid, avoid taking it within 30 minutes before or after taking sucralfate. What are the possible side effects of sucralfate? Get emergency medical help if you have any of these signs of an allergic reaction: hives; difficult breathing; swelling of your face, lips, tongue, or throat. Common side effects may include: ? nausea, vomiting, upset stomach; ?? stomach pain; ?? constipation, diarrhea; ?? mild itching or skin rash; ?? sleep problems (insomnia); ?? dizziness, drowsiness, spinning sensation; ?? headache; or ?? back pain. This is not a complete list of side effects and others may occur. Call your doctor for medical advice about side effects. You may report side effects to FDA at 7-188-WST-6263. What other drugs will affect sucralfate? Sucralfate can make it harder for your body to absorb other medications you take by mouth. Avoid taking any other medications within 2 hours before or after you take sucralfate. Other drugs may interact with sucralfate, including prescription and cmfv-sqn-pupnaif medicines, vitamins, and herbal products. Tell each of your health care providers about all medicines you use now and any medicine you start or stop using. Where can I get more information? Your pharmacist can provide more information about sucralfate. Remember, keep this and all other medicines out of the reach of children, never share your medicines with others, and use this medication only for the indication prescribed. Every effort has been made to ensure that the information provided by [employer] is accurate, up-to-date, and complete, but no guarantee is made to that effect. Drug information contained herein may be time sensitive. [employer] information has been compiled for use by healthcare practitioners and consumers in the [place] and therefore [employer] does not warrant that uses outside of the [place] are appropriate, unless specifically indicated otherwise. [employer] drug information does not endorse drugs, diagnose patients or recommend therapy. [employer] drug information is an informational resource designed to assist licensed healthcare practitioners in caring for their patients and/or to serve consumers viewing this service as a supplement to, and not a substitute for, the expertise, skill, knowledge and judgment of healthcare practitioners. The absence of a warning for a given drug or drug combination in no way should be construed to indicate that the drug or drug combination is safe, effective or appropriate for any given patient. [employer] does not assume any responsibility for any aspect of healthcare administered with the aid of information [facility] provides. The information contained herein is not intended to cover all possible uses, directions, precautions, warnings, drug interactions, allergic reactions, or adverse effects. If you have questions about the drugs you are taking, check with your doctor, nurse or pharmacist. Copyright 8162-9121 [employer]ub. Version: 8.01. Revision Date: 01/03/2013. Emergency Awareness and Preventative Care STROKE is an EMERGENCY Every Minute Counts Act FAST and Check for these signs: FACE Does the face look uneven? ARM Does one arm drift down? SPEECH Does their speech sound strange? TIME Call at any sign of stroke Stroke Risk Factors Atrial Fibrillation (irregular heartbeat) Diabetes Family history of stroke Heart Disease Heavy alcohol use High Blood Pressure High Cholesterol Physical inactivity and obesity Smoking Cigarette Smoking The facts are clear, cigarette smoking will shorten your life. Smoking can cause many illnesses along the way. As a healthcare provider, we recommend that you stop smoking. Assistance with quitting is available by contacting 1-958-[facility]. This is a free resource providing counseling, support, and referral. Or you may contact your personal physician. National Suicide Prevention Lifeline: The National Suicide Prevention Lifeline is a national network of local crisis centers that provides free and confidential emotional support to people in suicidal crisis or emotional distress 24 hours a day, 7 days a week. Don't Wait! Stop a Heart Attack Before it Starts What is a heart attack? A heart attack is damage or to a part of the heart from severely decreased or lack of blood flow to the heart. Over time, arteries can become narrow from the buildup of fat and cholesterol, which is called plaque. The plaque can rupture causing a blood clot to form. When the blood clot forms, the artery can become severely narrowed or completely blocked, causing a heart attack. Heart attack is the leading cause of in the [place]. 85% of muscle damage occurs within the first 2 hours. Delay in the recognition of heart attack symptoms increases the chances of . Know the early symptoms of a heart attack: Nausea Feeling of fullness in chest Jaw Pain Pain that travels down one or both arms Fatigue/being tired Anxiety Back Pain Chest pressure, squeezing, or discomfort Shortness of breath Sweating, or a cold sweat Feeling of impending doom There are unusual signs of a heart attack, too! Women, the elderly, and diabetics may present with atypical symptoms: Fainting/dizziness Weakness Confusion Risk Factors for a Heart Attack Some heart disease risk factors, such as age and family history, cannot be changed. Others, like smoking and lack of exercise, can be changed. Smoking High Cholesterol High Blood Pressure Family History Obesity Age Gender (Males are at higher risk) Lack of Exercise Diabetes Diet Stress Excessive Alcohol Intake If you or someone you know is experiencing the signs and symptoms of a heart attack, DON???T DELAY. Call immediately and seek help. If someone collapses, perform CPR! Do not attempt to drive if you are having symptoms of heart attack. Hands-Only CPR Why Hands-Only CPR? Hands-Only CPR has been shown to be as effective as conventional CPR for cardiac arrests that occur outside of a hospital. Survival depends on immediately receiving CPR from someone nearby. How do you perform Hands-Only CPR? There are two easy steps: Call if you see a teen or adult collapse Push hard and fast in the center of the chest at a beat of 100 beats per minute. Save a life! 4 WAYS TO GET AHEAD OF SEPSIS SEPSIS is a MEDICAL EMERGENCY. Time matters! Infections put you and your family at risk for a life-threatening condition called sepsis. Sepsis is the body's extreme response to an infection. It is life-threatening, and without timely treatment, sepsis can rapidly lead to tissue damage, organ failure, and . Sepsis happens when an infection you already have-in your skin, lungs, urinary tract or somewhere else-triggers a chain reaction throughout your body. 1 [...] sepsis or if you have an infection that is not getting better or is getting worse. To learn more about sepsis and how to prevent infections, visit www.cdc.gov/sepsis. Patient Portal documented in this encounter Plan of Treatment Not on file documented as of this encounter Visit Diagnoses Not on filedocumented in this encounter
--- OUTSIDE RECORDS SUMMARY | 2025-02-23 11:53 | XMS_ITS | Clinical Summary ---
Author Organization [facility] Address [address] [place] [phone] Phone Care Team Providers Care Machine Tool Designer Name Role Phone Svitlana Manley MD Primary Care Provider [phone] Social History Tobacco Use Types Packs/Day Years Used Date Smoking Tobacco: Never Assessed Sex and Gender Information Value Date Recorded Sex Assigned at Not on file Legal Sex Male 2:22 PM EDT Gender Identity Not on file Sexual Orientation Not on file Plan of Treatment Health Maintenance Due Date Last Done Comments Wellness Exam Medicare 1943 DTaP/TDaP/Td (1 - Tdap) 1958 Pneumococcal Vaccine 50+ (1 of 1 - PCV) 1989 Zoster (1 of 2) 1989 RSV or 60+ (1 - 1-d ose 75+ series) 2014 COVID-19 Vaccine ( - 2023-2 5 season) 2024 Influenza Vaccine (Season Ended) 2025 Hepatitis B Vaccine Aged Out No longe r eligible based on patient's age to complete this topic Meningococcal B Vaccine Aged Out No l onger eligible based on patient's age to complete this topic Insurance MEDICARE [place] PART A AND B Care Teams Machine Tool Designer Relationship Specialty Start Date End Date Svitlana Manley MD [address] [place] [phone] PCP - General Family Medicine 04/10/16
--- OUTSIDE RECORDS SUMMARY | 2025-02-23 11:53 | XMS_ITS | Encounter Summary ---
Author Organization [facility] ([place], [place], [place], [place]) Address [address] [place] [address] Care Team Providers Care Conveyor System Dispatcher Name Role Phone Unavailable Primary Care Provider Unavailabl e Encounter Details Date Type Department Care Team (Late st Contact Info) Description 11/20/2018 Transcribed Document [facility] Medicine [address] [place] [address] Eloy Rodrigues MD [address] [place], [place] [id number] Social History Tobacco Use Types Packs/Day Years Used Date Smoking Tobacco: Never Assessed Sex and Gender Information Value Date Recorded Sex Assigned at Not on file Legal Sex Male 5:03 PM CDT Gender Identity Not on file Sexual Orientation Not on file documented as of this encounter Miscellaneous Notes * Cerner Conversion Note - Eloy Rodrigues MD - 11/20/2018 5:32 PM EDT DATE OF STUDY: REFERRING PHYSICIAN: Porfirio Gaxiola IV, MD PATIENT DATA: Gender: Male. Age: 78. Race: . Height: 73 inches. Weight: 174 pounds. Body mass index: 23.11. TEST COMMENTS: Spirometry data is acceptable and reproducible according to ATS criteria. Flow volume loops are acceptable. Exhalation time more than 6 seconds. There is skewing of expiratory limb, hinting of airway obstruction. SPIROMETRY: 1. FVC 2.88 L, 63% predicted. 2. FEV1 1.93 L, 59% predicted. 3. FEV1/FVC percentage predicted 67. Diffusion lung capacity was 128% of predicted when corrected to alveolar volume. IMPRESSION: 1. Moderate airway obstruction, GOLD criteria, chronic obstructive pulmonary disease, stage II. 2. Diffusion lung capacity was increased when corrected to alveolar volume. Clinical correlation is indicated for hyperreactive airway disease versus obesity (body mass index really 23). Eloy Rodrigues M.D. Dict: 11/20/2018 16:32:27 Trans: 11/20/2018 22:52:43 Processed: 11/22/2018 09:57:30 [place] CC1: Eloy Rodrigues M.D. documented in this encounter Plan of Treatment Not on file documented as of this encounter Visit Diagnoses Not on filedocumented in this encounter
--- OUTSIDE RECORDS SUMMARY | 2025-02-23 11:53 | XMS_ITS | Encounter Summary ---
Author Organization [employer] ([place], [place], [place], [place]) Address [address] [place] [address] Care Team Providers Care Homicide Investigator Name Role Phone Unavailable Primary Care Provider Unavailabl e Encounter Details Date Type Department Care Team (Late st Contact Info) Description 12/01/2018 Transcribed Document [facility] [place] [address] [place] [address] ProviderErika MD [address] [place] [address] Social History Tobacco Use Types Packs/Day Years Used Date Smoking Tobacco: Never Assessed Sex and Gender Information Value Date Recorded Sex Assigned at Not on file Legal Sex Male 5:03 PM CDT Gender Identity Not on file Sexual Orientation Not on file documented as of this encounter Miscellaneous Notes * Cerner Conversion Note - Historical ProviderMD - 12/01/2018 5:00 PM CDT Discharge Summary, PT Entered On: 12/01/2018 18:31 EDT Performed On: 12/01/2018 17:00 EDT by KISHA BROWER, PT Discharge Summary Discharge Summary Provider Notified : Physical Therapy Reason for Discharge : Discharged from hospital Discharged to, Therapy : Unit, rehabilitation Discharge Summary Comment, PT : pt last seen 11/29 and noted to be max assist x 2 for supine to sit to supine had PROM done KISHA BROWER, PT - 12/01/2018 18:30 EDT Short Term Goals Mobility/Bed Mobility STG PT Grid Goal #1 Activity : Supine to sit Assist : Assist, minimal Date to Meet : 11/25/2018 EDT Goal Status : Not met KISHA BROWER, PT - 12/01/2018 18:30 EDT Transfer STG Grid Goal #1 Destination : Chair, with arms Type : Stand Pivot Sit Assist : Assist, moderate Date to Meet : 11/25/2018 EDT Goal Status : Not met KISHA BROWER, PT - 12/01/2018 18:30 EDT Longterm Goals Mobility/Bed Mobility LTG PT Grid Goal #1 Activity : Sit to stand Assist : Assist, minimal Date to Meet : 12/02/2018 EDT Goal Status : Not met KISHA BROWER, PT - 12/01/2018 18:30 EDT Transfer LTG Grid Goal #1 Destination : Chair, with arms Type : Stand Pivot Sit Assist : Assist, minimal Date to Meet : 12/02/2018 EDT Goal Status : Not met KISHA BROWER, PT - 12/01/2018 18:30 EDT Electronically signed by Christina Saini Conversion Aboriginal Education Worker Coordinator Cerner at 12/08/2022 12:38 PM CDT documented in this encounter Plan of Treatment Not on file documented as of this encounter Visit Diagnoses Not on filedocumented in this encounter
--- OUTSIDE RECORDS SUMMARY | 2025-02-23 11:53 | XMS_ITS | Clinical Summary ---
Author Organization [employer] ([place], [place], [place], [place]) Address [address] [place] [id number] Care Team Providers Care Install Technician Name Role Phone Unavailable Primary Care Provider Unavailabl e Social History Tobacco Use Types Packs/Day Years Used Date Smoking Tobacco: Never Assessed Sex and Gender Information Value Date Recorded Sex Assigned at Not on file Legal Sex Male 5:03 PM CDT Gender Identity Not on file Sexual Orientation Not on file Plan of Treatment Not on file
--- OUTSIDE RECORDS SUMMARY | 2025-02-23 11:53 | XMS_ITS | Encounter Summary ---
Author Organization [employer] ([place], [place], [place], [place]) Address [address] [place] [address] Care Team Providers Care Oil Distributor Tender Name Role Phone Unavailable Primary Care Provider Unavailabl e Encounter Details Date Type Department Care Team (Late st Contact Info) Description 11/20/2018 Transcribed Document [facility] [place] [address] [place] [address] ProviderErika MD [address] [place] [address] Social History Tobacco Use Types Packs/Day Years Used Date Smoking Tobacco: Never Assessed Sex and Gender Information Value Date Recorded Sex Assigned at Not on file Legal Sex Male 5:03 PM CDT Gender Identity Not on file Sexual Orientation Not on file documented as of this encounter Miscellaneous Notes * Cerner Conversion Note - Erika Jose MD - 11/20/2018 1:07 PM CDT Rapid Response Team Documentation Entered On: 11/20/2018 13:09 EDT Performed On: 11/20/2018 13:07 EDT by MICHAEL WALLER RN Rapid Response Event Time Rapid Response Team Called : 11/20/2018 9:53 EDT Rapid Response Team Arrival Time : 11/20/2018 12:30 EDT Rapid Response Team Event End Time : 11/20/2018 13:05 EDT Rapid Response Event Intiated By : Hospital Staff Rapid Response Team Initiation Reason : Other: Feeding tube placement Rapid Response Event Location Type : Critical Care Rapid Response Team Initiation Reason Details : CTVU3. Corpak feeding tube placed via Cortrak device for medication administration. 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 Essential (primary) hypertension Hypothyroidism, unspecified Nonrheumatic aortic (valve) insufficiency Nonrheumatic aortic (valve) insufficiency Restless legs syndrome Thoracic aortic aneurysm, without rupture Thoracic aortic aneurysm, without rupture Thrombocytopenia, unspecified Rapid Response Medical Background : Aneurysm, thoracic aortic (Medical) Aortic valve insufficiency (Medical) Arthritis (Medical) At risk for sleep apnea (Medical) CAD (coronary artery disease) (Medical) Cancer of skin of face (Patient Stated) Disorder of prostate ( enlarged) (Patient Stated) Frequent urination (Medical) HTN - Hypertension (Medical) Hypothyroidism (Medical) Nocturia (Medical) Prostate stricture (Medical) Restless legs syndrome (Patient Stated) Rapid Response Allergies : Substance Category Reactions Severity No Known Allergies Drug No Known Medication Allergies Drug Rapid Response Recent Vital Signs : 11/20/2018 11:00 Systolic Blood Pressure 120 11/20/2018 11:00 Diastolic Blood Pressure 69 11/20/2018 11:00 Systolic BP, Arterial Line 1 149 11/20/2018 11:00 Diastolic BP, Arterial Line 1 69 11/20/2018 11:43 Heart Rate Monitored 115 11/20/2018 11:43 Respiratory Rate 35 11/20/2018 11:00 Temperature, Celsius 37.9 11/20/2018 11:43 Oxygen Saturation 92 Rapid Response Recent Lab Results : 11/20/2018 03:22 Sodium Level 139 (136-146) 11/20/2018 03:22 Potassium Level 3.8 (3.5-5.1) 11/16/2018 12:38 Calcium Ionized 1.17 (1.12-1.32) 11/20/2018 03:22 Calcium Level LOW 8.0 (8.4-10.1) 11/17/2018 03:12 Magnesium Level HI 2.7 (1.5-2.4) 11/15/2018 14:15 eAVG Glucose NA 126 11/16/2018 11:57 Glucose POC HI 132 (70-105) 11/20/2018 06:51 Glucose POC2 HI 126 (70-110) 11/20/2018 03:22 Chloride Level 106 (102-112) 11/20/2018 03:22 Carbon Dioxide Level 30 (21-32) 11/20/2018 03:22 Blood Urea Nitrogen HI 24 (7-22) 11/20/2018 03:22 Creatinine Level 0.70 (0.70-1.30) 11/15/2018 14:15 PT 11.3 (9.6-12.0) 11/15/2018 14:15 INR 1.0 (0.9-1.1) 11/15/2018 14:15 PTT 25.7 (22.0-32.0) 11/15/2018 14:15 Hgb A1C 6.00 (4.20-6.30) 11/20/2018 03:22 Hgb LOW 9.8 (13.5-17.3) 11/20/2018 03:22 Hct LOW 29.9 (40.1-51.0) 11/20/2018 03:22 RBC LOW 3.39 (4.20-5.70) 11/20/2018 03:22 WBC HI 11.1 (3.6-9.5) 11/20/2018 03:22 Platelet Count LOW 108 (163-369) 11/17/2018 05:13 pH Art HI 7.48 (7.35-7.45) 11/17/2018 05:13 pCO2 Art LOW 31.2 (35.0-45.0) 11/17/2018 05:13 pO2 Art 93.1 (80.0-100.0) 11/17/2018 05:13 HCO3 Art 23.4 (20.0-26.0) 11/17/2018 05:13 BE Art .4 (-2.0-2.0) 11/17/2018 05:13 sO2 Art 98.5 (95.0-100.0) Weight/BMI : Clinical Weight/BMI CLINICALWEIGHT: 79.23 kg (11/16/18 13:40:00) CLINICALWEIGHT: 79.23 kg (11/15/18 13:52:00) Body Mass Index: 23 kg/m2 (11/16/18 13:40:00) Body Mass Index: 23 kg/m2 (11/15/18 13:52:00) Patient Condition at End of Event : No S/S of Acute Distress Patient Disposition Post Event : No change in location/level of care Rapid Response Oil Distributor Tender #1 : MICHAEL WALLER, RN MICHAEL WALLER, RN - 11/20/2018 13:07 EDT Electronically signed by Parveen [facility] Conversion Operations Forester Cerner at 12/08/2022 12:16 PM CDT documented in this encounter Plan of Treatment Not on file documented as of this encounter Visit Diagnoses Not on filedocumented in this encounter
--- OUTSIDE RECORDS SUMMARY | 2025-02-23 11:53 | XMS_ITS | Encounter Summary ---
Author Organization [employer] ([place], [place], [place], [place]) Address [address] [place] [address] Care Team Providers Care Bindery Assistant Name Role Phone Unavailable Primary Care Provider Unavailabl e Encounter Details Date Type Department Care Team (Late st Contact Info) Description 11/16/2018 Transcribed Document [facility] [place] [address] [place] [address] ProviderErika MD [address] [place] [address] Social History Tobacco Use Types Packs/Day Years Used Date Smoking Tobacco: Never Assessed Sex and Gender Information Value Date Recorded Sex Assigned at Not on file Legal Sex Male 5:03 PM CDT Gender Identity Not on file Sexual Orientation Not on file documented as of this encounter Miscellaneous Notes * Cerner Conversion Note - Erika Jose MD - 11/16/2018 12:15 PM CDT DATE OF PROCEDURE:11/16/2018 PREOPERATIVE DIAGNOSIS(ES): 1. Ascending thoracic aortic aneurysm. 2. Aortic insufficiency. 3. Coronary artery disease. 4. Hypertension. 5. Hypothyroidism. POSTOPERATIVE DIAGNOSIS(ES): 1. Ascending thoracic aortic aneurysm. 2. Aortic insufficiency. 3. Coronary artery disease. 4. Hypertension. 5. Hypothyroidism. PROCEDURE: Resection and grafting of ascending thoracic aortic aneurysm, aortic valve replacement with stentless aortic valve root and reimplantation of coronaries, coronary artery bypass grafting x1 (left internal mammary artery graft to left anterior descending). SURGEON: Porfirio Gaxiola IV, MD LAYUP WORKER: Saud Oliver (AMANDA) ANESTHESIA: General orotracheal. CLINICAL NOTE: The patient is a 78-year-old man with increasing fatigue over the past few months. He was noted to have a cardiac murmur and an echocardiogram revealed a severely dilated aorta, mild to moderate aortic insufficiency, and mild to moderate mitral insufficiency with an ejection fraction of 55%. Chest CT scan revealed an ascending thoracic aortic aneurysm of 6.4 cm with tapering of aorta to 3.5 cm prior to the aortic arch. Cardiac catheterization revealed one-vessel coronary artery disease of the left anterior descending coronary. DESCRIPTION OF PROCEDURE: With the patient in supine position and under adequate general anesthesia, the chest, abdomen, and legs were prepped and draped in a sterile manner. A median sternotomy was performed and the left internal mammary artery was taken down. The patient was fully heparinized. The pericardium was opened and a pericardial cradle was created. The aorta and right atrium were cannulated and cardiopulmonary bypass was begun. The coronary artery for grafting was dissected. A cannula for the administration of cardioplegia was inserted into the ascending aorta. The patient was maintained in normothermia and iced saline slush was placed on the surface of the heart. The aorta was clamped and cardioplegia was administered through the aortic root. Additional cardioplegia was given directly in the coronary ostia to maintain myocardial hypothermia. A small opening was made in the right superior pulmonary vein to provide a left heart vent. The ascending thoracic aorta was transected just above the sinotubular junction. The ascending thoracic aortic aneurysm was completely excised with a cuff of aortic tissue distally just below the cross-clamp. Since there was aneurysmal dilatation all the way to the aortic valve annulus, and with mild to moderate aortic insufficiency, it was elected to replace the aortic valve with a stentless aortic valve root. The left main and right coronary arteries were dissected out with surrounding buttons of aortic tissue. The remaining proximal aortic tissue was excised. The aortic valve was insufficient. The aortic valve was excised. The aortic valve annulus was sized to a 29-mm Medtronic Freestyle graft. While the graft was being washed, a 30-mm Hemashield woven Dacron graft was anastomosed to the patient's distal ascending thoracic aorta in an end-to-end fashion with continuous 4-0 Prolene. The aortic valve was then replaced with a 29-mm Medtronic Freestyle graft. The left main coronary artery stump of the graft was excised. The proximal end of the graft was then anastomosed to the patient's aortic valve annulus in an end-to-end fashion with continuous 4-0 Prolene. The patient's left main coronary artery was anastomosed to the previously made opening with continuous 4-0 Prolene. The right coronary artery stump of the graft was then excised, and the patient's right coronary artery was anastomosed to the graft in an end-to-end fashion. The woven Dacron graft was then cut to an appropriate length proximally. The Freestyle graft was then anastomosed to the woven Dacron graft in an end-to-end fashion with continuous 4-0 Prolene. The opening in the right superior pulmonary vein was closed with a 4-0 Prolene suture. All anastomotic sites were sealed with Tisseel sealant. The left internal mammary artery was then grafted to left anterior descending coronary. The quality of the coronary and conduit was good. The probe size was 1.5 mm and the anastomosis was done with continuous 7-0 Prolene. The mammary artery pedicle was tacked to the epicardium. Air was evacuated from the heart and the aorta was unclamped after a total cross-clamp time of 120 minutes. Epicardial pacing wires were placed on the surface of the right ventricle and right atrium and brought up percutaneously below the sternotomy. The patient was weaned from cardiopulmonary bypass on no inotropic support after a total bypass time of 153 minutes. After stability was assured, the venous and arterial cannulas were removed. Protamine was given to reverse the heparin. Hemostasis was obtained. One mediastinal tube and one left pleural tube were each inserted through separate stab wound incisions. The sternum was reapproximated with interrupted sternal wires and the wound was closed in layers. A sterile dressing was applied. All sponge, needle, and instrument counts were correct. The patient tolerated the procedure well and he went to the intensive care unit in stable condition. Porfirio Gaxiola IV, M.D. Dict: 11/16/2018 12:15:27 Trans: 11/16/2018 15:09:34 CC1: Porfirio Gaxiola IV, M.D. Electronically signed by Parveen [facility] Conversion Refrigerator Room Clerk Cerner at 12/08/2022 12:25 PM CDT documented in this encounter Plan of Treatment Not on file documented as of this encounter Visit Diagnoses Not on filedocumented in this encounter
--- OUTSIDE RECORDS SUMMARY | 2025-02-23 11:53 | XMS_ITS | Encounter Summary ---
Author Organization [employer] ([place], [place], [place], [place]) Address [address] [place] [address] Care Team Providers Care Junior Engineer Name Role Phone Unavailable Primary Care Provider Unavailabl e Encounter Details Date Type Department Care Team (Late st Contact Info) Description 11/25/2018 Transcribed Document [facility] [place] Family Medicine [address] [place] [address] ProviderErika MD [address] [place] [address] Social History Tobacco Use Types Packs/Day Years Used Date Smoking Tobacco: Never Assessed Sex and Gender Information Value Date Recorded Sex Assigned at Not on file Legal Sex Male 5:03 PM CDT Gender Identity Not on file Sexual Orientation Not on file documented as of this encounter Miscellaneous Notes * Cerner Conversion Note - Historical ProviderMD - 11/25/2018 5:00 PM CDT Chart Check - Review Order Profile Entered On: 11/25/2018 16:38 EDT Performed On: 11/25/2018 17:00 EDT by lEissa Rodarte RN Chart Check Chart Reviewed Date and Time : 11/25/2018 16:38 EDT Powerplans Initiated/Discontinued as Appropriate : Yes All Active Orders Reviewed : Yes Elissa Rodarte RN - 11/25/2018 16:38 EDT documented in this encounter Plan of Treatment Not on file documented as of this encounter Visit Diagnoses Not on filedocumented in this encounter
--- OUTSIDE RECORDS SUMMARY | 2025-02-23 11:53 | XMS_ITS | Encounter Summary ---
Author Organization [employer] ([place], [place], [place], [place]) Address [address] [place] [address] Care Team Providers Care Cordwood Cutter Name Role Phone Unavailable Primary Care Provider Unavailabl e Encounter Details Date Type Department Care Team (Late st Contact Info) Description 11/25/2018 Transcribed Document [facility] [place] [address] [place] [address] ProviderErika MD [address] [place] [address] Social History Tobacco Use Types Packs/Day Years Used Date Smoking Tobacco: Never Assessed Sex and Gender Information Value Date Recorded Sex Assigned at Not on file Legal Sex Male 5:03 PM CDT Gender Identity Not on file Sexual Orientation Not on file documented as of this encounter Miscellaneous Notes * Cerner Conversion Note - Historical ProviderMD - 11/25/2018 3:07 PM CDT Attempt to Treat, PT Entered On: 11/25/2018 15:08 EDT Performed On: 11/25/2018 15:07 EDT by SENIA QUINTANA PTA Attempt to Treat Unable to Treat Due To : Patient Unavailable Inability to Treat Comment : Patient was being put on the bed balderrama; willl check back 11/26. Notification : SENIA Snyder PTA - 11/25/2018 15:07 EDT documented in this encounter Plan of Treatment Not on file documented as of this encounter Visit Diagnoses Not on filedocumented in this encounter
--- OUTSIDE RECORDS SUMMARY | 2025-02-23 11:53 | XMS_ITS | Encounter Summary ---
Author Organization [employer] ([place], [place], [place], [place]) Address [address] [place] [address] Care Team Providers Care Salesperson Sewing Machines Name Role Phone Unavailable Primary Care Provider Unavailabl e Encounter Details Date Type Department Care Team (Late st Contact Info) Description 11/16/2018 Transcribed Document [facility] [place] Family Medicine [address] [place] [address] ProviderErika MD [address] [id number] Social History Tobacco Use Types Packs/Day Years Used Date Smoking Tobacco: Never Assessed Sex and Gender Information Value Date Recorded Sex Assigned at Not on file Legal Sex Male 5:03 PM CDT Gender Identity Not on file Sexual Orientation Not on file documented as of this encounter Miscellaneous Notes * Cerner Conversion Note - Erika Jose MD - 11/16/2018 12:30 PM CDT Patient: DOTTIE VILLASENOR Age: 78 years Sex: Male : 1940 Associated Diagnoses: Thoracic ascending aortic aneurysm; Aortic insufficiency; Coronary artery disease Author: JULIO CESAR CARVALHO MD-CAT Postoperative Information Preoperative Diagnosis: Thoracic ascending aortic aneurysm - Discharge, Medical, Aortic insufficiency - Discharge, Medical, Coronary artery disease - Discharge, Medical. Postoperative Diagnosis: Thoracic ascending aortic aneurysm - Discharge, Medical, Aortic insufficiency - Discharge, Medical, Coronary artery disease - Discharge, Medical. Performed by: JULIO CESAR CARVALHO MD-CAT. Mouthpiece Maker: ERASMO LÓPEZ PA. Notes: Procedure: Resection and Grafting of Ascending Thoracic Aortic Aneurysm (30 mm Hemashield graft), 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 and Reimplantation of Coronaries (29 mm Medtronic Freestyle), CABG x 1 (RUSSELL>LAD). documented in this encounter Plan of Treatment Not on file documented as of this encounter Visit Diagnoses Not on filedocumented in this encounter
--- OUTSIDE RECORDS SUMMARY | 2025-02-23 11:53 | XMS_ITS | Encounter Summary ---
Author Organization [employer] ([place], [place], [place], [place]) Address [address] [place] [address] Care Team Providers Care Business Operations Coordinator Name Role Phone Unavailable Primary Care Provider Unavailabl e Encounter Details Date Type Department Care Team (Late st Contact Info) Description 11/16/2018 Transcribed Document [facility] [place] Family Medicine [address] [place] [address] ProviderErika MD [address] [place] [address] Social History Tobacco Use Types Packs/Day Years Used Date Smoking Tobacco: Never Assessed Sex and Gender Information Value Date Recorded Sex Assigned at Not on file Legal Sex Male 5:03 PM CDT Gender Identity Not on file Sexual Orientation Not on file documented as of this encounter Miscellaneous Notes * Cerner Conversion Note - Erika ProviderMD - 11/16/2018 6:40 AM CDT Admission History, Adult Entered On: 11/16/2018 13:42 EDT Performed On: 11/16/2018 13:40 EDT by FROY NEIL RN Advance Directive Patient has Advance Directive *Q : No, patient refuses Advance Directive information FROY NEIL RN - 11/16/2018 13:37 EDT Anesthesia/Transfusion History Family History of Anesthesia Reaction : No prior transfusion(s) Transfusion History : Prior anesthesia without reaction Family History of Anesthesia Reaction : None FROY NEIL RN - 11/16/2018 13:37 EDT Functional Assessment Living Situation : Home Patient Lives With : Alone Current Home Treatments : None FROY NEIL RN - 11/16/2018 13:37 EDT General Info Contact Password : VANDANADBFROY CHEN RN - 11/16/2018 13:43 EDT Arrived From : Home Mode of Arrival on Unit : Ambulatory Legal Guardian : Spouse Support Person/Patient Hand Spring Repairer Helper : Yes Support Person/Pt Rep Name : Connie- Sumeet - son Support Person/Pt Rep Contact Information : [phone] home [phone] - cell Want Family/Rep/Phys Notified of Admit : No Emergency Contact #1 : Abydesi FROY NEIL RN - 11/16/2018 13:37 EDT Emergency Contact #1 (H) FROY NEIL RN - 11/16/2018 13:43 EDT Emergency Contact #1 Relationship : NEIL, FROY Tao RN - 11/16/2018 13:37 EDT Emergency Contact #2 : Sheridan King Emergency Contact #2 (C) Emergency Contact #2 Relationship : daughter RASHAAD FROY Tao RN - 11/16/2018 13:43 EDT Information Obtained From : Patient, Medical Record Primary Language : Citizen Of [place] Preferred Communication Mode : Verbal Communication Barrier : None Objects to Sharing Info w Family : No FROY NEIL RN - 11/16/2018 13:37 EDT Fall Risk Scales ABCs Fall Injury Risk Identification : Age, Bones ABC Fall Injury Risk : Moderate to high injury risk DECKER Hx Falls Immediate/Within 3 Months : No Decker Secondary Diagnosis : Yes DECKER Use of Ambulatory Aid : Bed rest/Nurse assist DECKER IV Therapy or IV Access : Yes Decker Gait/Transferring : Normal, bedrest, immobile Decker Mental Status : Oriented to own ability Decker Fall Risk Score : 35 DECKER Fall Scale Risk Level : 25-45 Medium Risk [place] Fall Interventions : Adequate lighting, Assistive devices within reach, Bed in low position, Call device within reach, Fall prevention handout/education per facility policy, Frequent orientation to call device, Frequent orientation to surroundings, Hourly comfort/safety rounds, Non-slip footwear, Personal items within reach, Reinforced to call for assistance before getting out of bed, Room free of clutter/spills, Upper side-rails up, Wheels locked, Wires/Cords secured FROY NEIL RN - 11/16/2018 13:37 EDT Health Histories Smoking Status : Never (less than 100 in lifetime; none in last 30 days) Smokeless Tobacco Status : Never FROY NEIL RN - 11/16/2018 13:37 EDT Social History (As Of: 11/16/2018 13:42:04 EDT) Tobacco: Smoking Status Never smoker. (Last Updated: 04/16/2017 10:10:58 EDT by ADRIANA YOUNG RN) Alcohol: Alcohol Use History No. Use in Last 12 Months: No. (Last Updated: 04/16/2017 10:11:06 EDT by ADRIANA YOUNG RN) Substance Abuse: Drug Use Hx: No. Use in Last 12 Months: No. (Last Updated: 04/16/2017 10:11:23 EDT by ADRIANA YOUNG RN) Home/Environment: Lives with Spouse. Living situation: Home/Independent. (Last Updated: 11/15/2018 13:53:56 EDT by ANGELA KEY RN) Height and Weight, Clinical Dosing Height Source : Measured Height Entry Format : [place] Height, Feet : 6 ft(Converted to: 183 cm, 72 Inch) Height, Inches : 1 Inch(Converted to: 0 ft 1 Inch, 2.54 cm) Clinical Height : 185.42 cm Weight Source : Standing scale Weight Entry Format : [place] Clinical Dosing Weight : 79.23 kg Weight, Pounds : 174 lb Weight, Ounces : 5 oz Body Surface Area (BSA) : 2.03 m2 Body Mass Index : 23 kg/m2 [place] Body Weight : 79 kg FROY NEIL RN - 11/16/2018 13:37 EDT Infectious Disease History Infectious Disease History : Chicken pox/Shingles, Measles, Mumps Fever/Chills Last 48 Hours : No Travel To Regions with Travel Advisories : No Travel Outside [place] Within Last 30 Days : No Contact With Traveler to Advisory Region : No Tuberculosis Symptoms : None FROY NEIL RN - 11/16/2018 13:37 EDT Influenza Vaccine Asmt, Adult Previous Vaccines from Immunization Schedule : No qualifying data available. Influenza Immunization, Current Season : No Inactivated Flu Vaccine Contraindications : No contraindications to inactivated influenza vaccine Transplant Workup/Recent Transplant : No Order for Influenza Vaccine : Declined Vaccination FROY NEIL RN - 11/16/2018 13:37 EDT Pneumococcal Vaccine Previous Vaccines from Immunization Schedule : No qualifying data available. Pneumonia Immunization Received : Yes FROY NEIL RN - 11/16/2018 13:37 EDT Nutrition History Eating Poorly Due to Decreased Appetite : No Unplanned Weight Loss in Past 3-6 Months : No Malnutrition Screening Tool Total(mal) : 0 Malnutrition Screening Tool Risk Level : Patient not at risk FROY NEIL RN - 11/16/2018 13:37 EDT Psychosocial History Do You Have a History of the Following? : Patient denies history Currently in Unsafe Situation : No Tried to Harm Yourself in the Past? : No Thoughts of Harming/Killing Yourself : No FROY NEIL RN - 11/16/2018 13:37 EDT Sleep Apnea Risk Assmt Hx of Obstructive Sleep Apnea Diagnosis : No Snore Loudly : No Tired, Fatigued, or Sleepy During Day : Yes Observed Stopping Breathing During Sleep : No Have/Are Being Treated for Hypertension : Yes BMI Greater Than 35 kg/m2 : No Age over 50 Years Old : Yes Neck Circumference Greater Than 40 cm : Yes Gender Male : Yes STOP-BANG Sleep Apnea Risk Level Score : 5 FROY NEIL RN - 11/16/2018 13:37 EDT Valuables and Belongings Valuables and Belongings : No clothing, No comfort items, No jewelry FROY NEIL RN - 11/16/2018 13:37 EDT documented in this encounter Plan of Treatment Not on file documented as of this encounter Visit Diagnoses Not on filedocumented in this encounter
--- OUTSIDE RECORDS SUMMARY | 2025-02-23 11:53 | XMS_ITS | Encounter Summary ---
Author Organization [employer] ([place], [place], [place], [place]) Address [address] [place] [address] Care Team Providers Care Metal Treater Name Role Phone Unavailable Primary Care Provider Unavailabl e Encounter Details Date Type Department Care Team (Late st Contact Info) Description 11/18/2018 Transcribed Document [facility] [place] Family Medicine [address] [place] [address] ProviderErika MD [address] [place] [address] Social History Tobacco Use Types Packs/Day Years Used Date Smoking Tobacco: Never Assessed Sex and Gender Information Value Date Recorded Sex Assigned at Not on file Legal Sex Male 5:03 PM CDT Gender Identity Not on file Sexual Orientation Not on file documented as of this encounter Miscellaneous Notes * Cerner Conversion Note - Erika ProviderMD - 11/18/2018 3:00 AM CDT Nutrition Assessment Entered On: 11/18/2018 11:22 EDT Performed On: 11/18/2018 10:37 EDT by Bev Olvera Clinical Dietitian Nutrition Assessment Nutrition Learning Needs : None at this time Bev Olvera Clinical Dietitian - 11/18/2018 11:31 EDT Nutrition Assessment Reason : Follow Up, Nutrition support Bev Olvera Clinical Dietitian - 11/18/2018 11:19 EDT Current Nutrition Regimen Comment : 11/18: Check on: Pt is on Osmolite 1.5 @ 50m/hr + 1 [id number] daily advancing toward goal of 60ml/hr + 1 [id number] daily. No BEATING MACHINE OPERATOR consult noted, discussed if any concern for [...] moved around or been alert much yet. 11/17: RD rec'd verbal consult from RN to initiate TF per Dr. Whiting. RN reports pt extubated but too sleepy for po diet. RN states pt has NGT. 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 No family present. DX: CAD, AAA, KATHRYN PMH: HTN, restless leg syndrome, hx of skin ca LABS: glucose 200, FSB, 153, 156, 184 MEDS: aspirin, levothyroxine, senna, PRN KCl Drips: insulin SKIN: sternum midline incision; chest tube 370ml GI: LBM FORMULATOR (admit 11/16), hypoactive BS, +NGT Nutrition Support: Osmolite 1.5 @ 60ml/hr + 1 [id number] daily, water flush 10ml q1hr HT: 185cm (6'1) ADMIT WT: 79kg/174# Current Wt: 81.6kg (11/17), 82.4kg (11/18) BMI: 23 IBW: 79kg/100% EST NEEDS: 5042-9069 kcal (25-30kcal/kg), 95g pro (1.2g/kg) Bev Olvera Clinical Dietitian - 11/18/2018 11:31 EDT Nutrition Diagnoses Oral or Nutrition Support Intake : Inadequate oral intake Oral or Nutr Support Intake Related To : clinical condition/pt too dowsy for po intake Oral or Nutr Support Intake Evidenced by : need for EN Oral or Nutrition Support Intake Status : Active Bev Olvera Clinical Dietitian - 11/18/2018 11:31 EDT Nutrition Interventions Enteral/Parenteral Nutrition : Continue current enteral nutrition regimen Nutrition Supplement Therapy : Food additives (specify) Bev Olvera Clinical Dietitian - 11/18/2018 11:31 EDT Monitoring/Evaluation Energy Intake : Total energy intake Enteral Nutrition Intake : Formula/Solution Protein Intake : Total protein Weight Status : Weight Maintanence Gastrointestinal Function : Bowel Function Integumentary : Wound Status Bev Olvera Clinical Dietitian - 11/18/2018 11:31 EDT Nutrition Recommendations Dietitian Recommendations : 1. Continue TF: Osmolite 1.5 @ 60ml/hr + 1 [id number] daily (provides 2040 kcal, 98g pro). FW per MD. goal: provide nutrition, meet est needs 2. As medically able, recommend swallow eval if appropriate; rec (cardiac) w/consistencies per BEATING MACHINE OPERATOR. RD will monitor need for supplement. goal: establish po intake 3. Obtain wt 2x weekly goal: no significant unintended changes high risk Nutrition Care Level : High Bev Olvera, Clinical Dietitian - 11/18/2018 11:31 EDT documented in this encounter Plan of Treatment Not on file documented as of this encounter Visit Diagnoses Not on filedocumented in this encounter
--- OUTSIDE RECORDS SUMMARY | 2025-02-23 11:53 | XMS_ITS | Encounter Summary ---
Author Organization [employer] ([place], [place], [place], [place]) Address [address] [place] [address] Care Team Providers Care Golf Starter And Ranger Name Role Phone Unavailable Primary Care Provider Unavailabl e Encounter Details Date Type Department Care Team (Late st Contact Info) Description 11/18/2018 Transcribed Document [facility] [place] [address] [place] [address] ProviderErika MD [address] [place] [address] Social History Tobacco Use Types Packs/Day Years Used Date Smoking Tobacco: Never Assessed Sex and Gender Information Value Date Recorded Sex Assigned at Not on file Legal Sex Male 5:03 PM CDT Gender Identity Not on file Sexual Orientation Not on file documented as of this encounter Miscellaneous Notes * Cerner Conversion Note - Historical ProviderMD - 11/18/2018 5:00 PM CDT Chart Check - Review Order Profile Entered On: 11/18/2018 19:20 EDT Performed On: 11/18/2018 17:00 EDT by Daksha Urrutia, RN Chart Check All Active Orders Reviewed : Yes Daksha Urrutia, RN - 11/18/2018 19:20 EDT documented in this encounter Plan of Treatment Not on file documented as of this encounter Visit Diagnoses Not on filedocumented in this encounter
--- OUTSIDE RECORDS SUMMARY | 2025-02-23 11:53 | XMS_ITS | Encounter Summary ---
Author Organization [employer] ([place], [place], [place], [place]) Address [address] [place] [address] Care Team Providers Care Agricultural Extension Officer Name Role Phone Unavailable Primary Care Provider Unavailabl e Encounter Details Date Type Department Care Team (Late st Contact Info) Description 11/28/2018 Transcribed Document [facility] [place] [address] [place] [address] ProviderErika MD [address] [place], [place] [id number] Social History Tobacco Use Types Packs/Day Years Used Date Smoking Tobacco: Never Assessed Sex and Gender Information Value Date Recorded Sex Assigned at Not on file Legal Sex Male 5:03 PM CDT Gender Identity Not on file Sexual Orientation Not on file documented as of this encounter Miscellaneous Notes * Cerner Conversion Note - Historical ProviderMD - 11/28/2018 2:00 AM CDT University Demonstrator Details Entered On: 11/28/2018 2:45 EDT Performed On: 11/28/2018 2:00 EDT by Robyn Benitez, RN Order Details Transport Mode Order Detail : Stretcher/Gurney Isolation Precautions Order Detail : Contact precautions Order Detail : N/A IV Order Detail : 1 Oxygen Order Detail : 0 Nurse Collect Order Detail : 0 Lift/Transfer : Maximal assist Central Line Order Detail : No Room Service : Not Appropriate Arterial Line : No Robyn Benitez, RN - 11/28/2018 2:44 EDT documented in this encounter Plan of Treatment Not on file documented as of this encounter Visit Diagnoses Not on filedocumented in this encounter
--- OUTSIDE RECORDS SUMMARY | 2025-02-23 11:53 | XMS_ITS | Encounter Summary ---
Author Organization [employer] ([place], [place], [place], [place]) Address [address] [place] [address] Care Team Providers Care Client Support Coordinator Name Role Phone Unavailable Primary Care Provider Unavailabl e Encounter Details Date Type Department Care Team (Late st Contact Info) Description 12/01/2018 Transcribed Document [facility] [place] Family Medicine [address] [place] [address] ProviderErika MD [address] [place] [address] Social History Tobacco Use Types Packs/Day Years Used Date Smoking Tobacco: Never Assessed Sex and Gender Information Value Date Recorded Sex Assigned at Not on file Legal Sex Male 5:03 PM CDT Gender Identity Not on file Sexual Orientation Not on file documented as of this encounter Miscellaneous Notes * Cerner Conversion Note - Historical ProviderMD - 12/01/2018 11:54 AM CDT QM STK-2 Antithrombotic - Disch v5.3 Entered On: 12/01/2018 11:54 EDT Performed On: 12/01/2018 11:54 EDT by GISSEL ZHANG PA Antithrombotic Therapy Reason for Not Prescribing Antithrombotic Therapy at Discharge : Risk of bleeding GISSEL ZHANG PA - 12/01/2018 11:54 EDT documented in this encounter Plan of Treatment Not on file documented as of this encounter Visit Diagnoses Not on filedocumented in this encounter
--- OUTSIDE RECORDS SUMMARY | 2025-02-23 11:53 | XMS_ITS | Encounter Summary ---
Author Organization [employer] ([place], [place], [place], [place]) Address [address] [place] [address] Care Team Providers Care Lead Ios Developer Name Role Phone Unavailable Primary Care Provider Unavailabl e Encounter Details Date Type Department Care Team (Late st Contact Info) Description 11/24/2018 Transcribed Document [facility] [place] Family Medicine [address] [place] [address] ProviderErika MD [address] [place] [address] Social History Tobacco Use Types Packs/Day Years Used Date Smoking Tobacco: Never Assessed Sex and Gender Information Value Date Recorded Sex Assigned at Not on file Legal Sex Male 5:03 PM CDT Gender Identity Not on file Sexual Orientation Not on file documented as of this encounter Miscellaneous Notes * Cerner Conversion Note - Historical ProviderMD - 11/24/2018 2:00 AM CDT Cold Rolling Machine Setter Details Entered On: 11/24/2018 3:36 EDT Performed On: 11/24/2018 2:00 EDT by SHELDON MUELLER RN Order Details Transport Mode Order Detail : Stretcher/Gurney Isolation Precautions Order Detail : Contact precautions Order Detail : N/A IV Order Detail : 1 Oxygen Order Detail : 1 Nurse Collect Order Detail : 1 Lift/Transfer : Maximal assist Central Line Order Detail : No Room Service : Not Appropriate Arterial Line : No SHELDON MUELLER RN - 11/24/2018 3:35 EDT documented in this encounter Plan of Treatment Not on file documented as of this encounter Visit Diagnoses Not on filedocumented in this encounter
--- OUTSIDE RECORDS SUMMARY | 2025-02-23 11:53 | XMS_ITS | Encounter Summary ---
Author Organization [employer] ([place], [place], [place], [place]) Address [address] [place] [address] Care Team Providers Care Supervisor Road Administrator Name Role Phone Unavailable Primary Care Provider Unavailabl e Encounter Details Date Type Department Care Team (Late st Contact Info) Description 12/01/2018 Transcribed Document [facility] [place] Family Medicine [address] [place] [address] ProviderErika MD [address] [place] [address] Social History Tobacco Use Types Packs/Day Years Used Date Smoking Tobacco: Never Assessed Sex and Gender Information Value Date Recorded Sex Assigned at Not on file Legal Sex Male 5:03 PM CDT Gender Identity Not on file Sexual Orientation Not on file documented as of this encounter Miscellaneous Notes * Cerner Conversion Note - Erika Jose MD - 12/01/2018 1:47 PM CDT Patient Education Materials Follows: Smoking Hazards Smoking cigarettes is extremely bad for your health. Tobacco smoke has over 200 known poisons in it. It contains the poisonous gases nitrogen oxide and carbon monoxide. There are over 60 chemicals in tobacco smoke that cause cancer. Some of the chemicals found in cigarette smoke include: ??? Cyanide. ? Benzene. ? Formaldehyde. ? Methanol (wood alcohol). ? Acetylene (fuel used in welding torches). ? Ammonia. ? Even smoking lightly shortens your life expectancy [...] serious medical problems, including: ??? Lung cancer. ? Lung disease (such as pneumonia, bronchitis, and emphysema). ? Heart attack and chest pain due to the heart not getting enough oxygen (angina). ? Heart disease and peripheral blood vessel disease. ? Hypertension. ? Stroke. ? Oral cancer (cancer of the lip, mouth, or voice box). ? Bladder cancer. ? Pancreatic cancer. ? Cervical cancer. ? complications, including premature . ? Stillbirths and smaller babies, defects, and genetic damage to sperm. ? Early menopause. ? Lower estrogen level for women. ? Infertility. ? Facial wrinkles. ? Blindness. ? Increased risk of broken bones (fractures). ? Senile dementia. ? Stomach ulcers and internal bleeding. ? Delayed wound healing and increased risk of complications during surgery. Because of secondhand smoke exposure, children of smokers have an increased risk of the following: ??? Sudden infant syndrome (SIDS). ? Respiratory infections. ? Lung cancer. ? Heart disease. ? Ear infections. ? WHY IS SMOKING ADDICTIVE? Nicotine is the [...] decreases. Health improvements are seen almost immediately. ? Blood pressure, pulse rate, and breathing patterns start returning to normal soon after quitting. ? People who quit may see an improvement in their overall quality of life. ? HOW DO YOU QUIT SMOKING? Smoking is [...] contain harmful chemicals. FOR MORE INFORMATION ??? [place] [employer]: www.lung.org ??? [place] [employer]: www.cancer.org This information is not intended to replace advice given to you by your health care provider. Make sure you discuss any questions you have with your health care provider. Document Released: 09/17/2005 Document Revised: 12/01/2016 Document Reviewed: 01/30/2014 [employer] Interactive Patient Education ? 2017 [employer] How to Take Your Blood Pressure [...] check the size of your arm: ? ? Use a measuring tape that shows both inches and centimeters. ? ? Wrap the measuring tape around the upper-middle part of your arm. You may need someone to help you measure. ? ? Write down your arm measurement in both inches and centimeters. ? To measure your blood pressure correctly, it is important to have the right size cuff. ? ? If your arm is up to 13 inches (up to 34 centimeters), get an adult cuff size. ? If your arm is 13 to 17 inches (35 to 44 centimeters), get a large adult cuff size. ? ? If your arm is 17 to 20 inches (45 to 52 centimeters), get an adult thigh cuff. ? WHAT DO THE NUMBERS MEAN? There are [...] 07/23/2009 Document Revised: 08/31/2015 Document Reviewed: 10/05/2014 [employer] Interactive Patient Education ? 2017 [employer] How to Take a Pulse Your [...] year of age: Normal heart rate of 100?160 bpm. ??? Children 1?2 years of age: Normal heart rate of 90?150 bpm. ??? Children 2?5 years of age: Normal heart rate of 80?140 bpm. ??? Children 6?12 years of age: Normal heart rate of 70?120 bpm. ??? Everyone over 12 years of age: Normal heart rate of 60?100 bpm. There can be a lot of [...] fingers just to one side of your Duc?s apple so that you feel a pulsing [...] 02/14/2004 Document Revised: 02/27/2017 Document Reviewed: 01/13/2017 [employer] Interactive Patient Education ? 2017 [employer] Coronary Artery Bypass Grafting, Care After [...] ??? Nausea and a lack of appetite. ? Constipation. ??? Weakness and fatigue. ? Depression or irritability. ? Pain or discomfort at your incision site. [...] following: ? Avoid crossing your legs. ? ? Avoid sitting for long periods of time. Change positions every 30 minutes. ? ? Elevate your legs when you are [...] not drive until your health care provider approves.? Ask your health care provider when you [...] ??? You have pain in your legs. ? You gain 2 or more pounds (0.9 kg) a day. ??? You are nauseous or vomit. ??? You have diarrhea.? SEEK IMMEDIATE MEDICAL CARE IF: ??? You have chest pain that goes to your jaw or arms. ??? You have shortness of breath. ? You have a fast or irregular heartbeat. ? You notice a clicking in your breastbone (sternum) when you move. ? You have numbness or weakness in your arms or legs. ??? You feel dizzy or light-headed. ? MAKE SURE YOU: ??? Understand these instructions. [...] 02/27/2006 Document Revised: 08/31/2015 Document Reviewed: 01/17/2014 [employer] Interactive Patient Education ? 2017 [employer] Bleeding Precautions When on Anticoagulant Therapy [...] medicine can be injected or taken by mouth.?If you need anticoagulant therapy quickly at the [...] can be dangerous for you. ??? Many [id number] medicines for pain, colds, or stomach problems [...] provider. Document Released: 07/21/2016 Document Reviewed: 07/21/2016 [employer] Interactive Patient Education ? 2017 [employer] Atrial Fibrillation Introduction Atrial fibrillation is a [...] Follow these instructions at home: ??? Take uvdt-vrq-gmkzkzo and prescription medicines only as told by [...] 05/19/2009 Document Revised: 01/15/2017 Document Reviewed: 12/05/2015 ? 2017 [employer] Stroke Prevention Some medical conditions and behaviors [...] 09/17/2005 Document Revised: 01/15/2017 Document Reviewed: 02/10/2014 [employer] Interactive Patient Education ? 2017 [employer] documented in this encounter Plan of Treatment Not on file documented as of this encounter Visit Diagnoses Not on filedocumented in this encounter
--- OUTSIDE RECORDS SUMMARY | 2025-02-23 11:53 | XMS_ITS | Encounter Summary ---
Author Organization [email or web address] ([place], [place], [place], [place]) Address [address] [place] [address] Care Team Providers Care Architectural Model Maker Name Role Phone Unavailable Primary Care Provider Unavailabl e Encounter Details Date Type Department Care Team (Late st Contact Info) Description 11/20/2018 Transcribed Document [facility] [place] Family Medicine [address] [place] [address] ProviderErika MD [address] [place], [place] [id number] Social History Tobacco Use Types Packs/Day Years Used Date Smoking Tobacco: Never Assessed Sex and Gender Information Value Date Recorded Sex Assigned at Not on file Legal Sex Male 5:03 PM CDT Gender Identity Not on file Sexual Orientation Not on file documented as of this encounter Miscellaneous Notes * Cerner Conversion Note - Erika Jose MD - 11/20/2018 8:02 AM CDT Patient: DOTTIE VILLASENOR Age: 78 years Sex: Male : 1940 Associated Diagnoses: None Author: MICHAEL RODRIGUEZ MD Basic Information ICU Day 4 POD# 4 s/p AAA repair, aortic root replacement, CABG X 1 Review of Systems Constitutional: Negative, Lethargic . Eye: Negative. Ear/Nose/Mouth/Throat: Negative. Respiratory: Negative. Cardiovascular: Negative. Gastrointestinal: Negative. Genitourinary: Michele in place. Endocrine: Negative. Immunologic: Negative. Musculoskeletal: Negative. Integumentary: Negative. Neurologic: Confusion, Confusion improving.. Psychiatric: Negative. All other systems are negative [...] Tab, Q5Min, PRN for Pain, Routine metoprolol (Lopressor) - 25 mg, Oral, Tab, Q12H, Routine metoprolol (metoprolol tartrate) - 50 mg, [...] Bedtime, Routine HEENT saliva substitutes - 1 [place], Buccal, Liquid, Q2H, PRN for Other (See [...] Output Totals Last 24 Hours (7a-7a) Intake (36 Events) Continuous Infusions (72 mL) Medications (10 mL) Enteral Feeding Amount (1380 mL) Output (12 Events) Michele Catheter (900 mL) Input Total: 1462 mL Output Total: 900 mL Balance: 562 mL VS/Measurements Vitals Signs (last 24 hrs) Last Charted Minimum Maximum Apical HR 97 (NOV 19 09:26) 97 (NOV 19 09:26) 97 (NOV 19 09:26) Mon HR 107 (NOV 20 07:34) 90 (NOV 19 13:15) 112 (NOV 19 21:00) Resp Rate 20 (NOV 20 07:34) 15 (NOV 19 13:15) H 28 (NOV 19 17:00) SBP 136 (NOV 20 06:00) 99 (NOV 19 09:30) 136 (NOV 20 06:00) DBP 77 (NOV 20 06:00) L 55 (NOV 19 09:30) 77 (NOV 20 03:00) MAP 98 (NOV 20 06:00) 71 (NOV 19 08:45) 100 (NOV 20 06:00) SpO2 99 (NOV 20 07:34) 98 (NOV 19 08:45) 100 (NOV 20 01:00) General: Awake but somnolent.. Eye: Pupils are equal, round and reactive to light. HENT: Normocephalic. Neck: Supple. Respiratory: Lungs are clear to auscultation. Cardiovascular: Normal rate, Sinus tachycardia. Gastrointestinal: Soft, Non-tender. Lymphatics: No lymphadenopathy neck, axilla, groin. Musculoskeletal: Normal range of motion. Integumentary: Warm, Dry. Neurologic: Awke but somnolent. More awake than yesterday.. Review / Management Results review: Labs (Last four charted values) WBC H 11.1 (NOV 20) H 15.0 (NOV 19) H 17.7 (NOV 18) H 15.3 (NOV 17) HB L 9.8 (NOV 20) L 10.0 (NOV 19) L 10.2 (NOV 18) L 10.4 (NOV 17) HCT L 29.9 (NOV 20) L 30.3 (NOV 19) L 30.3 (NOV 18) L 30.9 (NOV 17) Plt L 108 (NOV 20) L 101 (NOV 19) L 103 (NOV 18) L 112 (NOV 17) Na 139 (NOV 20) 138 (NOV 19) 138 (NOV 18) 142 (NOV 17) K 3.8 (NOV 20) 4.0 (NOV 19) 3.8 (NOV 18) 3.8 (NOV 17) Cl 106 (NOV 20) 105 (NOV 19) 106 (NOV 18) 110 (NOV 17) CO2 30 (NOV 20) 28 (NOV 19) 27 (NOV 18) 25 (NOV 17) BUN H 24 (NOV 20) 21 (NOV 19) 19 (NOV 18) 20 (NOV 17) Cr 0.70 (NOV 20) 0.70 (NOV 19) 0.90 (NOV 18) 1.10 (NOV 17) Glu R H 153 (NOV 20) H 184 (NOV 19) H 200 (NOV 18) H 115 (NOV 17) Ca L 8.0 (NOV 20) L 7.9 (NOV 19) L 7.7 (NOV 18) L 7.9 (NOV 17) PT 11.3 (NOV 15) INR 1.0 (NOV 15) PTT 25.7 (NOV 15) AST 29 (NOV 15) ALT 33 (NOV 15) ALK P 65 (NOV 15) T Bili H 1.9 (NOV 15) PTN 6.5 (NOV 15) ALB 3.7 (NOV 15) . Radiology results Radiology Results (Last 48 hours) [id number] -- 11/16/2018 06:45 CR Chest 1 Vw Portable (11/19/2018 03:30) Result: PORTABLE CHEST 11/19/2018 9:00 AM HISTORY: Pleural effusion.COMPARISON: 1 day prior.FINDINGS: The heart is stable in size. Left-sided chest tube has beenremoved while remaining support devices are stable in position. There ispersistent left basilar atelectasis. There is no pneumothorax . Theosseous structures are unremarkable . IMPRESSION: Left-sided chest tube removal without pneumothorax.Persistent left basilar atelectasis.Images reviewed, interpreted, and dictated by Dr. Niles Escalante.Transcribed by Daniel Houston PA-C.I have personally viewed, interpreted and dictated the examination. Ihave read and agree with the above final transcribed report. CR Chest 1 Vw Portable (11/20/2018 04:12) Result: PORTABLE CHEST 11/20/2018 4:00 AMHISTORY: Shortness of breathCOMPARISON: 1 day priorFINDINGS: A [place]-Jovanna catheter tip terminates in the SVC. The [place]-Ganzcatheter has been retracted. The cardiac silhouette is moderatelyenlarged. The mediastinal and hilar contours are unremarkable. Thereare slightly increased small bilateral pleural effusions. There is nopneumothorax. The visualized osseous structures demonstrate no acuteabnormalities.IMPRESSION: Slightly increased small bilateral pleural effusions. Images reviewed, interpreted, and dictated by Dr. Andres Arcos.Transcribed by Nilton Samayoa. Impression and Plan POD# 4 s/p AAA repair, aortic root replacement and CABG X 1. NEURO: He was slow to wake up post [...] HEME: Pletelet count is improving. HCT stable documented in this encounter Plan of Treatment Not on file documented as of this encounter Visit Diagnoses Not on filedocumented in this encounter
--- OUTSIDE RECORDS SUMMARY | 2025-02-23 11:53 | XMS_ITS | Encounter Summary ---
Author Organization [employer] ([place], [place], [place], [place]) Address [address] [place] [address] Care Team Providers Care Rack Loader Name Role Phone Unavailable Primary Care Provider Unavailabl e Encounter Details Date Type Department Care Team (Late st Contact Info) Description 11/28/2018 Transcribed Document [facility] [place] [address] [place] [address] ProviderErika MD [address] [place] [address] Social History Tobacco Use Types Packs/Day Years Used Date Smoking Tobacco: Never Assessed Sex and Gender Information Value Date Recorded Sex Assigned at Not on file Legal Sex Male 5:03 PM CDT Gender Identity Not on file Sexual Orientation Not on file documented as of this encounter Miscellaneous Notes * Cerner Conversion Note - Erika ProviderMD - 11/28/2018 8:36 AM CDT Rapid Response Team Documentation Entered On: 11/28/2018 8:40 EDT Performed On: 11/28/2018 8:36 EDT by MICHAEL WALLER RN Rapid Response Event Rapid Response Team Event Interventions : Additional Lab Testing, IV fluid bolus Patient Disposition Post Event : Transfer to critical care Rapid Response Rack Loader #1 : MICHAEL WALLER RN Rapid Response Rack Loader #2 : DIA BINGHAM RN Rapid Response Rack Loader #3 : SRINIVAS LEAL RN DURHAM, CAMERON, TONJA - 11/28/2018 10:24 EDT Time Rapid Response Team Called : 11/28/2018 8:05 EDT Rapid Response Team Arrival Time : 11/28/2018 8:06 EDT Rapid Response Team Event End Time : 11/28/2018 8:35 EDT Rapid Response Event Intiated By : Hospital Staff Rapid Response Team Initiation Reason : Systolic Blood Pressure <90 or >200 despite treatment Rapid Response Event Location Type : Non Critical Care Rapid Response Team Initiation Reason Details : [id number]. PRINCIPAL PROGRAMMER notified of pt with decrease in BP despite treatment. MD notified. Bolus given and pt labwork obtained. 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 Cerebral infarction, unspecified Essential (primary) hypertension Hypothyroidism, unspecified Nonrheumatic aortic (valve) insufficiency Nonrheumatic aortic (valve) insufficiency Restless legs syndrome Thoracic aortic aneurysm, ruptured Thoracic aortic aneurysm, ruptured Thoracic aortic aneurysm, without rupture Thoracic aortic [...] Drug Rapid Response Recent Vital Signs : 11/28/2018 08:30 Systolic Blood Pressure 101 11/28/2018 08:30 Diastolic Blood Pressure 65 11/28/2018 08:34 Heart Rate Monitored 103 11/27/2018 21:21 Heart Rate, Apical 107 11/28/2018 05:30 Respiratory Rate 18 11/28/2018 08:34 Temperature, Fahrenheit 97.5 11/28/2018 08:34 Oxygen Saturation 98 Rapid Response Recent Lab Results : 11/28/2018 02:54 Sodium Level 137 (136-146) 11/28/2018 02:54 Potassium Level 4.7 (3.5-5.1) 11/16/2018 12:38 Calcium Ionized 1.17 (1.12-1.32) 11/28/2018 02:54 Calcium Level LOW 8.2 (8.4-10.1) 11/17/2018 03:12 Magnesium Level HI 2.7 (1.5-2.4) 11/15/2018 14:15 eAVG Glucose NA 126 11/16/2018 11:57 Glucose POC HI 132 (70-105) 11/25/2018 05:35 Glucose POC2 87 (70-110) 11/28/2018 02:54 Chloride Level 106 (102-112) 11/28/2018 02:54 Carbon Dioxide Level 25 (21-32) 11/28/2018 02:54 Blood Urea Nitrogen HI 47 (7-22) 11/28/2018 02:54 Creatinine Level 0.90 (0.70-1.30) 11/28/2018 02:54 PT HI 19.3 (9.6-12.0) 11/28/2018 02:54 INR HI 1.8 (0.9-1.1) 11/26/2018 10:40 PTT HI 55.8 (22.0-32.0) 11/15/2018 14:15 Hgb A1C 6.00 (4.20-6.30) 11/28/2018 02:54 Hgb LOW 9.0 (13.5-17.3) 11/28/2018 02:54 Hct LOW 29.2 (40.1-51.0) 11/28/2018 02:54 RBC LOW 3.15 (4.20-5.70) 11/28/2018 02:54 WBC HI 15.4 (3.6-9.5) 11/28/2018 02:54 Platelet Count 353 (163-369) 11/17/2018 05:13 pH Art HI 7.48 [...] Body Mass Index: 23 kg/m2 (11/15/18 13:52:00) MICHAEL WALLER RN - 11/28/2018 8:[address] [facility] [facility] Con[facility] Clinical Dietitian Cerner at 12/08/2022 12:11 PM CDT documented in this encounter Plan of Treatment Not on file documented as of this encounter Visit Diagnoses Not on filedocumented in this encounter
--- OUTSIDE RECORDS SUMMARY | 2025-02-23 11:53 | XMS_ITS | Encounter Summary ---
Author Organization [employer] ([place], [place], [place], [place]) Address [address] [place] [address] Care Team Providers Care Stock Preparer Name Role Phone Unavailable Primary Care Provider Unavailabl e Encounter Details Date Type Department Care Team (Late st Contact Info) Description 11/16/2018 Transcribed Document [facility] [place] Family Medicine [address] [place] [address] ProviderErika MD [address] [place] [address] Social History Tobacco Use Types Packs/Day Years Used Date Smoking Tobacco: Never Assessed Sex and Gender Information Value Date Recorded Sex Assigned at Not on file Legal Sex Male 5:03 PM CDT Gender Identity Not on file Sexual Orientation Not on file documented as of this encounter Miscellaneous Notes * Cerner Conversion Note - Historical ProviderMD - 11/16/2018 12:27 PM CDT Pain Assessment Entered On: 11/20/2018 19:36 EDT Performed On: 11/20/2018 14:22 EDT by Pham King Rn Intervention Information: acetaminophen Performed by Pham King Rn on 11/20/2018 13:22:00 EDT acetaminophen,325mg Oral,Fever Pain Assessment Pain Assessment : Follow-up assessment Pain Scale Goal : 4 Pain Scale Used : 0-10 Scale Pham King Rn - 11/20/2018 19:36 EDT Pain Scale Intensity : Non pain medication administration Pham King Rn - 11/20/2018 19:36 EDT Image 4 - Images currently included in the form version of this document have not been included in the text rendition version of the form. documented in this encounter Plan of Treatment Not on file documented as of this encounter Visit Diagnoses Not on filedocumented in this encounter
--- OUTSIDE RECORDS SUMMARY | 2025-02-23 11:53 | XMS_ITS | Encounter Summary ---
Author Organization [employer] ([place], [place], [place], [place]) Address [address] [place] [address] Care Team Providers Care Travelers' Aid Worker Name Role Phone Unavailable Primary Care Provider Unavailabl e Encounter Details Date Type Department Care Team (Late st Contact Info) Description 11/30/2018 Transcribed Document [facility] [place] [address] [place] [address] ProviderErika MD [address] [place] [address] Social History Tobacco Use Types Packs/Day Years Used Date Smoking Tobacco: Never Assessed Sex and Gender Information Value Date Recorded Sex Assigned at Not on file Legal Sex Male 5:03 PM CDT Gender Identity Not on file Sexual Orientation Not on file documented as of this encounter Miscellaneous Notes * Cerner Conversion Note - Historical ProviderMD - 11/30/2018 2:00 AM CDT Insurance Sales Executive Details Entered On: 11/30/2018 0:59 EDT Performed On: 11/30/2018 2:00 EDT by Dixie Fox, RN Order Details Transport Mode Order Detail : Stretcher/Gurney Isolation Precautions Order Detail : Contact precautions Order Detail : N/A IV Order Detail : 1 Oxygen Order Detail : 1 Nurse Collect Order Detail : 0 Lift/Transfer : Maximal assist Central Line Order Detail : No Room Service : Not Appropriate Arterial Line : No Dixie Fox, RN - 11/30/2018 0:59 EDT documented in this encounter Plan of Treatment Not on file documented as of this encounter Visit Diagnoses Not on filedocumented in this encounter
--- OUTSIDE RECORDS SUMMARY | 2025-02-23 11:53 | XMS_ITS | Encounter Summary ---
Author Organization [employer] ([place], [place], [place], [place]) Address [address] [place] [address] Care Team Providers Care Merchant Mariner Name Role Phone Unavailable Primary Care Provider Unavailabl e Encounter Details Date Type Department Care Team (Late st Contact Info) Description 12/01/2018 Transcribed Document [facility] [place] [address] [place] [address] ProviderErika MD [address] [place] [address] Social History Tobacco Use Types Packs/Day Years Used Date Smoking Tobacco: Never Assessed Sex and Gender Information Value Date Recorded Sex Assigned at Not on file Legal Sex Male 5:03 PM CDT Gender Identity Not on file Sexual Orientation Not on file documented as of this encounter Miscellaneous Notes * Cerner Conversion Note - Erika Jose MD - 12/01/2018 11:24 AM CDT Care Management Assessment/Plan Entered On: 12/01/2018 11:25 EDT Performed On: 12/01/2018 11:24 EDT by ANGELA NAIR Social Worker Care Management Note Anticipated Discharge Date : 12/01/2018 14:00 EDT ANGELA NAIR Social Worker - 12/01/2018 11:24 EDT Care Management Note : Continue to follow for discharge needs and arrangements, chart reviewed, received word from [facility] that bed is available for patient today, on their stroke unit. Patient to be transported via [facility], p/u set for 3pm. RN report to be called to [phone] and discharge summary to be faxed to [phone]. Pt, RN and family aware and in agreement with plan. ANGELA NAIR Social Worker - 12/01/2018 11:35 EDT Care Management Note Report : SUZANNA HAINES Social Worker - 11/30/18 15:30:18 Covering today for D/c planning, pt back on 3E room 330. Discussed w/ Carmen from [facility] who is still following pt. She has submitted pt info to MD for approval. Pt had EGD 11/29 which revealed duodenal ulcer w/ clot but no bleeding, no intervention needed, Off heparin gtt, watching pt's INR and H & H. Speech signed off today, pt is cleared for thins. Met w/ pt and family and informed them of [facility] situation. Also discussed outpt Cardiac Rehab. They prefer to go to [facility]. Phoned them and left msg, sent pt info to them. CM will cont to follow. ANGELA NAIR Analysis Consultant - 11/26/18 11:20:05 Continue to follow for discharge needs and arrangements, chart reviewed, admission day 10, transfer from CTVU, on room air, WBC=11.2, INR=1.1, PTT=55.8, on IV Heparin gtt due to DVT in left arm, MBS completed today now on regular cardiac diet with thin liquids, PT/OT following (not seen on 11/25/18) followed up with [facility] today regarding possible admission - plan is to submit for approval today after being seen by therapy. Awaiting ANGELA NAIR Analysis Consultant - 11/26/18 11:24:04 Continue to follow for discharge needs and arrangements, chart reviewed, admission day 10, transfer from CTVU, on room air, WBC=11.2, INR=1.1, PTT=55.8, on IV Heparin gtt due to DVT in left arm, MBS completed today now on regular cardiac diet with thin liquids, PT/OT following (not seen on 11/25/18) followed up with [facility] today regarding possible admission - plan is to submit for approval today after being seen by therapy, for their MD approval. Once accepting MD in place, bed in place and patient is medically stable will be able to transfer due to patient not requiring a insurance prior auth. CM will continue to follow. ODALYS FAULKNER, Rn-Drop Man - 11/24/18 13:22:19 11/24/18 Andra from [facility] called to let me know they started a precert on this pt. CF ODALYS FAULKNER Rn-Drop Man - 11/22/18 13:56:32 11/22/18 Pt has had a cva. Spoke to his Connie and son Sumeet at the bedside. Pt is lfacid on the left side. Discussed the need for STR and they decided on [facility]. Sent pt info via [employer] to [facility]. CF Documentation Status Complete : Yes ANGELA NAIR Social Worker - 12/01/2018 11:24 EDT Discharge Planning Details Home Caregiver Name/Relationship : Connie King [phone] spouse Discharge Placement Needs : Rehabilitation unit/facility Persons Assisting Patient at Home : Caregiver(s) Transportation Needs : Ambulance Discharge Dialysis Arrangements : No Family/Guardian Notified Transfer Plans : Yes ANGELA NAIR Social Worker - 12/01/2018 11:35 EDT Info/List/Choices Provided Patient Offered Choice/Affiliations Explained : Yes List/Info Provided Pt/Fam/Support Person : Other: Acute Rehab Important Medicare Message Reviewed With : Spouse Important Medicare Message Reviewed D/T : 12/01/2018 11:15 EDT Patient/Family Notified of Plan : Yes Patient/Family Notified : Connie King Spouse [phone] ANGELA NAIR Social Worker - 12/01/2018 11:35 EDT Final Discharge Disposition Note-CM Discharge To Care Management : IRF -Inpatient Rehabilitation Facility-62 Name of Receiving Facility/Provider-CM : [facility] Stroke unit ANGELA NAIR Social Worker - 12/01/2018 11:35 EDT documented in this encounter Plan of Treatment Not on file documented as of this encounter Visit Diagnoses Not on filedocumented in this encounter
--- OUTSIDE RECORDS SUMMARY | 2025-02-23 11:53 | XMS_ITS | Encounter Summary ---
Author Organization [employer] ([place], [place], [place], [place]) Address [address] [place] [address] Care Team Providers Care Nursing Informatics Clinical Analyst Name Role Phone Unavailable Primary Care Provider Unavailabl e Encounter Details Date Type Department Care Team (Late st Contact Info) Description 11/18/2018 Transcribed Document [facility] [place] [address] [place] [address] ProviderErika MD [address] [place] [address] Social History Tobacco Use Types Packs/Day Years Used Date Smoking Tobacco: Never Assessed Sex and Gender Information Value Date Recorded Sex Assigned at Not on file Legal Sex Male 5:03 PM CDT Gender Identity Not on file Sexual Orientation Not on file documented as of this encounter Miscellaneous Notes * Cerner Conversion Note - Historical ProviderMD - 11/18/2018 2:00 AM CDT Senior Energy Consultant Details Entered On: 11/18/2018 4:41 EDT Performed On: 11/18/2018 2:00 EDT by DANYA GILES RN Order Details Transport Mode Order Detail : Ambulatory Isolation Precautions Order Detail : Contact precautions Order Detail : N/A IV Order Detail : 1 Oxygen Order Detail : 1 Nurse Collect Order Detail : 1 Lift/Transfer : Moderate assist Central Line Order Detail : Yes Room Service : Not Appropriate Arterial Line : Yes DANYA GILES RN - 11/18/2018 4:41 EDT Electronically signed by Christina Saini Conversion Science And Operations Officer Cerner at 12/08/2022 12:31 PM CDT documented in this encounter Plan of Treatment Not on file documented as of this encounter Visit Diagnoses Not on filedocumented in this encounter
--- OUTSIDE RECORDS SUMMARY | 2025-02-23 11:53 | XMS_ITS | Encounter Summary ---
Author Organization [employer] ([place], [place], [place], [place]) Address [address] [place] [address] Care Team Providers Care Supervisor Sawing And Assembly Name Role Phone Unavailable Primary Care Provider Unavailabl e Encounter Details Date Type Department Care Team (Late st Contact Info) Description 11/16/2018 Transcribed Document [facility] [place] [address] [place] [address] ProviderErika MD [address] [place] [address] Social History Tobacco Use Types Packs/Day Years Used Date Smoking Tobacco: Never Assessed Sex and Gender Information Value Date Recorded Sex Assigned at Not on file Legal Sex Male 5:03 PM CDT Gender Identity Not on file Sexual Orientation Not on file documented as of this encounter Miscellaneous Notes * Cerner Conversion Note - Erika ProviderMD - 11/16/2018 7:30 AM CDT [facility] Main OR Preop Summary Primary Physician: JULIO CESAR CARVALHO MD-CAT Finalized Date/Time: 11/16/18 07:12:04 Pt. Name: DOTTIE VILLASENOR D.O.B./Sex: 1940 Male Med Rec #: [id number] Physician: JULIO CESAR CARVALHO MD-CAT Financial #: [id number] Pt. Type: I Room/Bed: ASA/8 Admit/Disch: 11/16/18 06:45:00 - Institution: [facility] PreOp Case Times Entry 1 In Preop 11/16/18 05:35:00 Ready for Holding n/a Room Patient Ready for 11/16/18 06:30:00 Surgery Patient Out of Preop 11/16/18 07:05:00 Patient Out of n/a Holding Room Last Modified By: JILLIAN BEATTY TONJA 11/16/18 07:12:02 Finalized By: JILLIAN BEATTY RN Document Signatures Signed By: JILLIAN BEATTY RN 11/16/18 07:12 documented in this encounter Plan of Treatment Not on file documented as of this encounter Visit Diagnoses Not on filedocumented in this encounter
--- OUTSIDE RECORDS SUMMARY | 2025-02-23 11:53 | XMS_ITS | Encounter Summary ---
Author Organization [employer] ([place], [place], [place], [place]) Address [address] [place] [address] Care Team Providers Care Facility Maintenance Mechanic Name Role Phone Unavailable Primary Care Provider Unavailabl e Encounter Details Date Type Department Care Team (Late st Contact Info) Description 11/20/2018 Transcribed Document [facility] [place] Family Medicine [address] [place] [address] ProviderErika MD [address] [place] [address] Social History Tobacco Use Types Packs/Day Years Used Date Smoking Tobacco: Never Assessed Sex and Gender Information Value Date Recorded Sex Assigned at Not on file Legal Sex Male 5:03 PM CDT Gender Identity Not on file Sexual Orientation Not on file documented as of this encounter Miscellaneous Notes * Cerner Conversion Note - Erika ProviderMD - 11/20/2018 9:36 AM CDT MANDOLIN REPAIRER Note Entered On: 11/24/2018 13:28 EDT Performed On: 11/24/2018 13:19 EDT by MAMTA SOLO, MANDOLIN REPAIRER Dysphagia Exercise Technique Dysphagia Therapy/Treatment Type #1 : Timing exercises Dysphagia Therapy/Tx # Possible Resp #1 : 15 Dysphagia Therapy/Tx # Correct Resp #1 : 15 Dysphagia Therapy/Tx # % Accuracy #1 : 100 % Dysphagia Therapy/Treatment Type #2 : Swallow, effortful Dysphagia Therapy/Tx # Possible Resp #2 : 15 Dysphagia Therapy/Tx # Correct Resp #2 : 15 Dysphagia Therapy/Tx # % Accuracy #2 : 100 % MAMTA SOLO SLP - 11/24/2018 13:19 EDT PO Trials Dysphagia Exercise Technique PO Trial #1 Consistency Trialed : [place] Oral Symptoms : None observed Pharyngeal Signs : None observed MAMTA SOLO SLP - 11/24/2018 13:19 EDT Attention Attention for Daily Living : Intact Attention: Focused, # Possible Responses : 6 Attention: Focused, # Correct Responses : 6 Attention: Focused, Accuracy Percent : 100 % Attention: Focused, Cueing : None Attention: Sustained, Accuracy Percent : 100 % Attention: Sustained, # Possible Responses : 5 Attention: Sustained, # Correct Responses : 5 Attention: Sustained, Cueing : None MAMTA SOLO SLP - 11/24/2018 13:19 EDT Memory Memory for Daily Living : Impaired Biographical Orien, # Possible Responses : 8 Biographical Orien, # Correct Responses : 8 Biographical Orien, Accuracy Pct : 100 % Orien Remote Mem, # Possible Response : 4 Orien Remote Mem, # Correct Responses : 2 Temporal Orien Remote Mem, Accuracy Pct : 50 % Spatial Orientation, # Possible Response : 4 Spatial Orientation, # Correct Responses : 0 Spatial Orientation, Accuracy Percent : 0 % Immediate, Number of Possible Responses : 6 Immediate, Number of Correct Responses : 6 Immediate, Accuracy Percent : 100 % ST Funct Delayed, # Possible Responses : 5 ST Funct Delayed, # Correct Responses : 2 ST Functional Delayed, Accuracy Pct : 40 % Short Term Functional Delayed, Cueing : Moderate MAMTA SOLO SLP - 11/24/2018 13:19 EDT Problem Solving Cmplx Prob Solving: # Possible Responses : 6 Cmplx Prob Solving: # Correct Responses : 2 Cmplx Prob Solving: Accuracy Pct : 33.3 % MAMTA SOLO SLP - 11/24/2018 13:19 EDT Swallow Plan/Goals Swallow LTG Grid MANDOLIN REPAIRER Buffer Inflated Pad Goal #1 MANDOLIN REPAIRER Buffer Inflated Pad Goal #2 Swallow LTG : Establish safe oral diet without aspiration Improve swallowing function for oral intake Status : Goal met Progressing, continue Date Met : 11/22/2018 EDT MAMTA SOLO SLP - 11/24/2018 13:19 EDT MAMTA SOLO SLP - 11/24/2018 13:19 EDT Swallow Goals Grid Goal #1 Goal [...] EDT 11/26/2018 EDT Status : Goal met Progressing, continue Progressing, continue Initial goal Date Met : 11/22/2018 EDT MAMTA SOLO, [facility] - 11/24/2018 13:19 EDT MAMTA SOLO MANDOLIN REPAIRER - 11/24/2018 13:19 EDT MAMTA SOLO MANDOLIN REPAIRER - 11/24/2018 13:19 EDT MAMTA SOLO [facility] - 11/24/2018 13:19 EDT LTG Lang/Comm/Cog LTG MANDOLIN REPAIRER Penitentiary Goal 1 Penitentiary Goal 2 Goals : Improved spoken language expression at the time of discharge Improved auditory/spoken language comprehension at the time of discharge Status : Initial Initial MAMTA SOLO [facility] - 11/24/2018 13:19 EDT MAMTA SOLO SLP - 11/24/2018 13:19 EDT STG Lang_Comm_Cog Motor Speech STG Grid Goal #1 Activity : Improve intelligibility of speech Status : Initial MAMTA SOLO [facility] - 11/24/2018 13:19 EDT Auditory Comprehension Grid Goal #1 Goal #2 Activity : Follow directions, 3 step commands simple Comprehend paragraph complex MAMTA SOLO [facility] - 11/24/2018 13:19 EDT MAMTA SOLO [facility] - 11/24/2018 13:19 EDT Verbal Expression STG Grid Goal #1 Activity : Generate items in a category MAMTA SOLO [facility] - 11/24/2018 13:19 EDT Reading Comprehension STG Grid Goal #1 Activity : Visual perception deficits MAMTA SOLO [facility] - 11/24/2018 13:19 EDT Attention STG Grid Goal #1 Activity : Other: Probe Status : Goal met Date Met : 11/24/2018 TGT MAMTA SOLO [facility] - 11/24/2018 13:19 EDT Memory STG Grid Goal #1 Goal #2 Goal #3 Activity : Other: Probe Improve short term functional delayed Improve short term working memory Status : Goal met Initial Initial Date Met : 11/24/2018 TGT MAMTA SOLO [facility] - 11/24/2018 13:19 EDT MAMTA SOLO [facility] - 11/24/2018 13:19 EDT MAMTA SOLO [facility] - 11/24/2018 13:19 EDT Problem Solving STG Grid Goal #1 Goal #2 Goal #3 Goal #4 Activity : Generate a list of simple/concrete items Label items in a category, complex/abstract Other: Probe Improve simple problem solving Status : Initial Initial Goal met Date Met : 11/24/2018 EDT MAMTA SOLO SLP - 11/24/2018 13:19 EDT MAMTA SOLO SLP - 11/24/2018 13:19 EDT MAMTA SOLO SLP - 11/24/2018 13:19 EDT MAMTA SOLO SLP - 11/24/2018 13:19 EDT Subjective/Assessment/Plan MANDOLIN REPAIRER Patient Concern : Pt was awake and lying in bed. Agreeable to tx. MANDOLIN REPAIRER Therapy/Treatment Asmt Cmnt : Pt seen for speech and dysphagia tx. Great participation in tx. Requires continuous cues for accurate completion of timing exercises. No overt pharyngeal patterns with nectar liquids. Further cogntive probe completed. Pt presents with a moderate cognitive deficits characterized by impairments in memory, orientation, and problem solving. POC updated. MANDOLIN REPAIRER Plan : Continue per POC. Repeat swallow study Thursday. MAMTA SOLO SLP - 11/24/2018 13:19 EDT Education Barriers To Learning : Cognitive deficit Individuals Taught : Patient Readiness to Learn : Cooperative Readiness to Learn : Explanation MAMTA SOLO SLP - 11/24/2018 13:19 EDT MANDOLIN REPAIRER Education Assessment Grid 1 Evaluation Results : Verbalizes understanding MAMTA SOLO SLP - 11/24/2018 13:19 EDT MANDOLIN REPAIRER Education Assessment Grid 2 Treatment Plan : Verbalizes understanding MAMTA SOLO SLP - 11/24/2018 13:[address] [facility] MANDOLIN REPAIRER Charges Speech Therapy : 1 Treatment-Swallowing : 1 MAMTA SOLO SLP - 11/24/2018 13:19 EDT Anticipated Discharge Needs, MANDOLIN REPAIRER Anticipated Discharge to OT : Rehab, high intensity Recommend Continued Therapy at Discharge : Yes MAMTA SOLO SLP - 11/24/2018 13:19 EDT documented in this encounter Plan of Treatment Not on file documented as of this encounter Visit Diagnoses Not on filedocumented in this encounter
--- OUTSIDE RECORDS SUMMARY | 2025-02-23 11:53 | XMS_ITS | Encounter Summary ---
Author Organization [employer] ([place], [place], [place], [place]) Address [address] [place] [address] Care Team Providers Care Drawer Hardware Worker Name Role Phone Unavailable Primary Care Provider Unavailabl e Encounter Details Date Type Department Care Team (Late st Contact Info) Description 11/24/2018 Transcribed Document [facility] [place] Family Medicine [address] [place] [address] ProviderErika MD [address] [place] [address] Social History Tobacco Use Types Packs/Day Years Used Date Smoking Tobacco: Never Assessed Sex and Gender Information Value Date Recorded Sex Assigned at Not on file Legal Sex Male 5:03 PM CDT Gender Identity Not on file Sexual Orientation Not on file documented as of this encounter Miscellaneous Notes * Cerner Conversion Note - Historical ProviderMD - 11/24/2018 5:00 AM CDT Chart Check - Review Order Profile Entered On: 11/24/2018 3:38 EDT Performed On: 11/24/2018 5:00 EDT by SHELDON MUELLER RN Chart Check Chart Reviewed Date and Time : 11/24/2018 3:37 EDT Powerplans Initiated/Discontinued as Appropriate : Yes All Active Orders Reviewed : Yes Chart Reviewed With : SHELDON MUELLER, SHELDON DORMAN, TONJA - 11/24/2018 3:37 EDT documented in this encounter Plan of Treatment Not on file documented as of this encounter Visit Diagnoses Not on filedocumented in this encounter
--- OUTSIDE RECORDS SUMMARY | 2025-02-23 11:53 | XMS_ITS | Encounter Summary ---
Author Organization [employer] ([place], [place], [place], [place]) Address [address] [place] [address] Care Team Providers Care Process Tank Tender Name Role Phone Unavailable Primary Care Provider Unavailabl e Encounter Details Date Type Department Care Team (Late st Contact Info) Description 11/16/2018 Transcribed Document [facility] [place] [address] [place] [address] ProviderErika MD [address] [place] [address] Social History Tobacco Use Types Packs/Day Years Used Date Smoking Tobacco: Never Assessed Sex and Gender Information Value Date Recorded Sex Assigned at Not on file Legal Sex Male 5:03 PM CDT Gender Identity Not on file Sexual Orientation Not on file documented as of this encounter Miscellaneous Notes * Cerner Conversion Note - Historical ProviderMD - 11/16/2018 12:27 PM CDT Consult Phone Call Documentation Entered On: 11/16/2018 13:34 EDT Performed On: 11/16/2018 12:27 EDT [facility] Call for Consults Consult Phone Call/Page Attempt : First call [facility] Pratt [facility] - 11/16/2018 13:34 EDT Electronically signed by Christina Saini Conversion Medical Staff Services Manager Cerner at 12/08/2022 12:13 PM CDT documented in this encounter Plan of Treatment Not on file documented as of this encounter Visit Diagnoses Not on filedocumented in this encounter
--- OUTSIDE RECORDS SUMMARY | 2025-02-23 11:53 | XMS_ITS | Encounter Summary ---
Author Organization [employer] ([place], [place], [place], [place]) Address [address] [place] [address] Care Team Providers Care Electronics Processor Name Role Phone Unavailable Primary Care Provider Unavailabl e Encounter Details Date Type Department Care Team (Late st Contact Info) Description 11/25/2018 Transcribed Document [facility] [place] [address] [place] [address] ProviderErika MD [address] [place] [address] Social History Tobacco Use Types Packs/Day Years Used Date Smoking Tobacco: Never Assessed Sex and Gender Information Value Date Recorded Sex Assigned at Not on file Legal Sex Male 5:03 PM CDT Gender Identity Not on file Sexual Orientation Not on file documented as of this encounter Miscellaneous Notes * Cerner Conversion Note - Historical ProviderMD - 11/25/2018 6:00 PM CDT RX Interventions Entered On: 11/25/2018 11:43 EDT Performed On: 11/25/2018 11:42 EDT by MONSERRAT MERINO RPh Clinical Interventions Clarify Drug Order : Yes MONSERRAT MERINO RPh - 11/25/2018 11:42 EDT Clarify Drug Order Clarify Drug Order, Order : INR pending Clarify Drug Order, Value : 0 Dollar Clarify Drug Order, Time : 10 Minute(s) MONSERRAT MERINO RPh - 11/25/2018 11:42 EDT documented in this encounter Plan of Treatment Not on file documented as of this encounter Visit Diagnoses Not on filedocumented in this encounter
--- OUTSIDE RECORDS SUMMARY | 2025-02-23 11:53 | XMS_ITS | Encounter Summary ---
Author Organization [employer] ([place], [place], [place], [place]) Address [address] [place] [address] Care Team Providers Care Chef Manager Name Role Phone Unavailable Primary Care Provider Unavailabl e Encounter Details Date Type Department Care Team (Late st Contact Info) Description 11/30/2018 Transcribed Document [facility] [place] Medicine [address] [place] [address] ProviderErika MD [address] [place] [address] Social History Tobacco Use Types Packs/Day Years Used Date Smoking Tobacco: Never Assessed Sex and Gender Information Value Date Recorded Sex Assigned at Not on file Legal Sex Male 5:03 PM CDT Gender Identity Not on file Sexual Orientation Not on file documented as of this encounter Miscellaneous Notes * Cerner Conversion Note - Historical ProviderMD - 11/30/2018 4:00 AM CDT Height and Weight, Routine Entered On: 11/30/2018 6:12 EDT Performed On: 11/30/2018 4:00 EDT by Dixie Fox RN Height and Weight, Routine Routine Weight Source : Bed scale Routine Weight Entry Format : [place] Routine Weight, Pounds : 164 lb Routine Weight, Ounces : 1 oz Routine Weight Calculation : 74.57 kg Height Source : Measured Height Entry Format : [place] Height, Feet : 6 ft Height, Inches : 1 Inch Clinical Height : 185.42 cm Body Surface Area (BSA), Routine : 1.98 m2 Body Mass Index (BMI), Routine : 21.69 kg/m2 Dixie Fox RN - 11/30/2018 6:12 EDT Electronically signed by Christina Saini Conversion Inspector Assemblies And Installations Cerner at 12/08/2022 12:39 PM CDT documented in this encounter Plan of Treatment Not on file documented as of this encounter Visit Diagnoses Not on filedocumented in this encounter
--- OUTSIDE RECORDS SUMMARY | 2025-02-23 11:53 | XMS_ITS | Encounter Summary ---
Author Organization [employer] [facility] ([place], [place], [place], [place]) Address [address] [place] [address] Care Team Providers Care Billet Driller Name Role Phone Unavailable Primary Care Provider Unavailabl e Encounter Details Date Type Department Care Team (Late st Contact Info) Description 11/16/2018 Transcribed Document [facility] [place] [facility] [address] [place] [address] ProviderErika MD [address] [place] [address] Social History Tobacco Use Types Packs/Day Years Used Date Smoking Tobacco: Never Assessed Sex and Gender Information Value Date Recorded Sex Assigned at Not on file Legal Sex Male 5:03 PM CDT Gender Identity Not on file Sexual Orientation Not on file documented as of this encounter Miscellaneous Notes * Cerner Conversion Note - Erika ProviderMD - 11/16/2018 8:20 AM CDT [facility] Main OR IntraOp Summary Primary Physician: JULIO CESAR CARVALHO MD-CAT Finalized Date/Time: 11/17/18 10:03:54 Pt. Name: DOTTIE VILLASENOR D.O.B./Sex: 1940 Male Med Rec #: [id number] Physician: JULIO CESAR CARVALHO MD-CAT Financial #: [id number] Pt. Type: I Room/Bed: [facility] Admit/Disch: 11/16/18 06:45:00 - Institution: [facility] IntraOp Case Attendance Entry 1 Entry 2 Entry 3 Case Attendee JULIO CESAR CARVALHO MD-CAT ALTIZER, LISA E, RN Alton Gamble, water resources engineer Role Performed Surgeon/Proceduralist, Geospatial Intelligence Analyst, First Supervisor Slitting And Shipping First Time In 11/16/18 07:06:00 11/16/18 07:06:00 11/16/18 07:06:00 Time Out 11/16/18 12:30:00 11/16/18 12:30:00 11/16/18 11:07:00 Procedure Transesophageal Transesophageal Transesophageal Echocardiogram Echocardiogram Echocardiogram Other Attendee Superficial Wound Closed By: Last Modified By: RADHA VALENCIA, RN RADHA VALENCIA, RN RADHA VALENCIA, RN 11/16/18 12:40:56 11/16/18 12:40:56 11/16/18 11:17:17 Entry 4 Entry 5 Entry 6 Case Attendee MELODY MASON, MD BO GRIMM CAROLYN, RN Role Performed Scrub, First Anesthesiologist Geospatial Intelligence Analyst, Second Time In 11/16/18 07:06:00 11/16/18 07:06:00 11/16/18 07:06:00 Time Out 11/16/18 12:30:00 11/16/18 12:30:00 11/16/18 08:05:00 Procedure Transesophageal Transesophageal Transesophageal Echocardiogram Echocardiogram Echocardiogram Other Attendee Superficial Wound Closed By: Last Modified By: RADHA VALENCIA RN RADHA VALENCIA, RN RADHA VALENCIA, RN 11/16/18 12:40:56 11/16/18 12:40:56 11/16/18 08:21:45 Entry 7 Entry 8 Entry 9 Case Attendee ERASMO LÓPEZ PA MEECE, PAUL, PA Grimes, Jennifer, [place] Pref Card Builder Role Performed Physician mail handler assistant Physician mail handler assistant Geospatial Intelligence Analyst, Second Time In 11/16/18 07:06:00 11/16/18 09:00:00 11/16/18 09:31:00 Time Out 11/16/18 07:45:00 11/16/18 12:30:00 11/16/18 09:50:00 Procedure Aortic Aneurysm Aortic Aneurysm Aortic Aneurysm Ascending Repair, CABG Ascending Repair, CABG Ascending Repair, CABG w Aortic Valve, w Aortic Valve, w Aortic Valve, Transesophageal Transesophageal Transesophageal Echocardiogram Echocardiogram Echocardiogram Other Attendee BREAK Superficial Wound Closed By: Last Modified By: RADHA VALENCIA, RN RADHA VALENCIA, RN RADHA VALENCIA, RN 11/16/18 08:24:20 11/16/18 12:40:56 11/16/18 09:39:14 Entry 10 Entry 11 Entry 12 Case Attendee Colette Alexander, LISETH Dimas, Alton Gamble, water resources engineer Pref Card Builder Supervisor Slitting And Shipping Role Performed Scrub, First Supervisor Slitting And Shipping Supervisor Slitting And Shipping Time In 11/16/18 10:32:00 11/16/18 11:05:00 11/16/18 11:17:00 Time Out 11/16/18 10:47:00 11/16/18 11:18:00 11/16/18 12:13:00 Procedure Aortic Aneurysm Aortic Aneurysm Aortic Aneurysm Ascending Repair, CABG Ascending Repair, CABG Ascending Repair, CABG w Aortic Valve, w Aortic Valve, w Aortic Valve Transesophageal Transesophageal Echocardiogram Echocardiogram Other Attendee BREAK BRREAK Superficial Wound Closed By: Last Modified By: RADHA VALENCIA, RN RADHA VALENCIA RN ALTIZER, LISA E RN 11/16/18 10:47:10 11/16/18 11:17:17 11/16/18 12:25:17 Entry 13 Case Attendee LISETH ROE, Supervisor Slitting And Shipping Role Performed Supervisor Slitting And Shipping Time In 11/16/18 12:13:00 Time Out 11/16/18 12:30:00 Procedure Aortic Aneurysm Ascending Repair, CABG w Aortic Valve, Transesophageal Echocardiogram Other Attendee Superficial Wound Closed By: Last Modified By: RADHA VALENCIA, TONJA 11/16/18 12:40:56 [facility] IntraOp Case Attendance Audit 11/16/18 12:40:56 Fiscal Manager: ALTIZEL Modifier: ALTIZEL 1 <+> Time Out 1 <*> Procedure Transesophageal Echocardiogram 2 <+> Time Out 2 <*> Procedure Transesophageal Echocardiogram 3 <*> Procedure Transesophageal Echocardiogram 4 <+> Time Out 4 <*> Procedure Transesophageal Echocardiogram 5 <+> Time Out 5 <*> Procedure Transesophageal Echocardiogram 6 <*> Procedure Transesophageal Echocardiogram 7 <*> Procedure Aortic Aneurysm Ascending Repair, CABG w Aortic Valve, Transesophageal Echocardiogram 8 <+> Time Out 8 <*> Procedure Aortic Aneurysm Ascending Repair, CABG w Aortic Valve, Transesophageal Echocardiogram 9 <*> Procedure Aortic Aneurysm Ascending Repair, CABG w Aortic Valve, Transesophageal Echocardiogram 10 <*> Procedure Aortic Aneurysm Ascending Repair, CABG w Aortic Valve, Transesophageal Echocardiogram 11 <*> Procedure Aortic Aneurysm Ascending Repair, CABG w Aortic Valve, Transesophageal Echocardiogram 12 <*> Procedure Aortic Aneurysm Ascending Repair, CABG w Aortic Valve 13 <+> Time Out 13 <*> Procedure Aortic Aneurysm Ascending Repair, CABG w Aortic Valve, Transesophageal Echocardiogram 11/16/18 12:25:17 Fiscal Manager: ALTIZEL Modifier: ALTIZEL 12 <+> Time Out 12 <*> Procedure Aortic Aneurysm Ascending Repair, CABG w Aortic Valve <+> 13 Case Attendee <+> 13 Role Performed <+> 13 Time In <+> 13 Procedure 11/16/18 11:17:39 Fiscal Manager: ALTIZEL Modifier: ALTIZEL <+> 12 Case Attendee <+> 12 Role Performed <+> 12 Time In <+> 12 Procedure 11/16/18 11:17:17 Fiscal Manager: ALTIZEL Modifier: ALTIZEL 3 <+> Time Out 3 <*> Procedure Transesophageal Echocardiogram <+> 11 Case Attendee <+> 11 Role Performed <+> 11 Time In <+> 11 Time Out <+> 11 Procedure <+> 11 Other Attendee 11/16/18 10:47:10 Fiscal Manager: ALTIZEL Modifier: ALTIZEL <+> 10 Case Attendee <+> 10 Role Performed <+> 10 Time In <+> 10 Time Out <+> 10 Procedure <+> 10 Other Attendee 11/16/18 09:58:31 Fiscal Manager: ALTIZEL Modifier: ALTIZEL <+> 1 Procedure <+> 2 Procedure <+> 3 Procedure <+> 4 Procedure <+> 5 Procedure <+> 6 Procedure 7 <*> Procedure Aortic Aneurysm Ascending Repair, CABG w Aortic Valve 8 <*> Procedure Aortic Aneurysm Ascending Repair, CABG w Aortic Valve 9 <*> Procedure Aortic Aneurysm Ascending Repair, CABG w Aortic Valve 11/16/18 09:50:06 Fiscal Manager: ALTIZEL Modifier: ALTIZEL 9 <+> Time Out 9 <*> Procedure Aortic Aneurysm Ascending Repair, CABG w Aortic Valve 11/16/18 09:39:14 Fiscal Manager: ALTIZEL Modifier: ALTIZEL <+> 9 Case Attendee <+> 9 Role Performed <+> 9 Time In <+> 9 Procedure <+> 9 Other Attendee 11/16/18 09:28:12 Fiscal Manager: ALTIZEL Modifier: ALTIZEL <+> 8 Case Attendee <+> 8 Role Performed <+> 8 Time In <+> 8 Procedure 11/16/18 08:24:20 Fiscal Manager: ALTIZEL Modifier: ALTIZEL 7 <+> Time Out 7 <*> Procedure Aortic Aneurysm Ascending Repair, CABG w Aortic Valve 11/16/18 08:21:45 Fiscal Manager: ALTIZEL Modifier: ALTIZEL <+> 6 Time Out 11/16/18 08:10:59 Fiscal Manager: ALTIZEL Modifier: ALTIZEL 6 <*> Time In 11/16/18 07:00:00 <+> 7 Case Attendee <+> 7 Role Performed <+> 7 Time In <+> 7 Procedure 11/16/18 07:19:51 Fiscal Manager: ALTIZEL Modifier: ALTIZEL <+> 2 Time In <+> 3 Time In <+> 4 Time In <+> 5 Time In 11/16/18 07:19:37 Fiscal Manager: ALTIZEL Modifier: ALTIZEL <+> 1 Time In <+> 2 Case Attendee <+> 2 Role Performed <+> 3 Case Attendee <+> 3 Role Performed <+> 4 Case Attendee <+> 4 Role Performed <+> 5 Case Attendee <+> 5 Role Performed <+> 6 Case Attendee <+> 6 Role Performed <+> 6 Time In [facility] IntraOp Case Times Entry 1 Patient In Room Time 11/16/18 07:06:00 Out Room Time 11/16/18 12:30:00 Anesthesia Start Time 11/16/18 07:06:00 Stop Time 11/16/18 12:30:00 Anesthesia Ready 11/16/18 07:06:00 Surgery / Procedure Times Start Time 11/16/18 08:20:00 Stop Time 11/16/18 12:22:00 Last Modified By: RADHA VALENCIA RN 11/16/18 07:17:32 [facility] IntraOp Case Times Audit 11/16/18 12:30:30 Fiscal Manager: ALTIZEL Modifier: ALTIZEL <+> 1 Out Room Time <+> 1 Stop Time <+> 1 Stop Time 11/16/18 08:21:57 Fiscal Manager: ALTIZEL Modifier: ALTIZEL <+> 1 Start Time [facility] IntraOp Cautery Entry 1 ESU Identification Cautery Type Monopolar ESU ID Number [id number] ID Type Hospital Number Cautery Settings Cut Setting 20 Coag Setting 40 ESU Grounding Pad Ground Pad Type Adult Grounding Pad Site Left buttock Grounding Pad RADHA VALENCIA RN Applied By Grounding Pad Site Warm, Dry, Intact Skin Condition Before Cautery Site Skin Condition WDL Before Comment Grounding Pad Site Unchanged Skin Condition After Cautery Site Skin Condition WDL After Comment Last Modified By: RADHA VALENCIA RN 11/16/18 08:42:12 [facility] IntraOp Communication Entry 1 Entry 2 Entry 3 Communication To Family/Significant other Other Family/Significant other Comment CTVU-START Communication By RADHA VALENCIA, RN RADHA VALENCIA, RN RADHA VALENCIA, RN Date and Time 11/16/18 08:27:00 11/16/18 08:27:00 11/16/18 09:06:00 Last Modified By: RADHA VALENCIA RN RADHA VALENCIA, RN RADHA VALENCIA, RN 11/16/18 08:27:20 11/16/18 08:27:20 11/16/18 09:10:41 Entry 4 Entry 5 Entry 6 Communication To Other Family/Significant other Family/Significant other Comment CTVU-ON PUMP Communication By RADHA VALENCIA RN RADHA VALENCIA, RN RADHA VALENCIA, RN Date and Time 11/16/18 09:06:00 11/16/18 10:22:00 11/16/18 11:26:00 Last Modified By: RADHA VALENCIA RN RADHA VALENCIA, RN RADHA VALENCIA, RN 11/16/18 09:10:41 11/16/18 10:22:56 11/16/18 11:31:42 Entry 7 Entry 8 Entry 9 Communication To Other Family/Significant other Other Comment CTVU-OFF PUMP CTVU-CLOSING Communication By RADHA VALENCIA, RN RADHA VALENCIA, RN RADHA VALENCIA, RN Date and Time 11/16/18 11:38:00 11/16/18 12:01:00 11/16/18 12:04:00 Last Modified By: RADHA VALENCIA RN RADHA VALENCIA, RN RADHA VALENCIA, RN 11/16/18 11:53:58 11/16/18 12:13:00 11/16/18 12:13:00 [facility] IntraOp Communication Audit 11/16/18 12:13:00 Fiscal Manager: ALTIZEL Modifier: ALTIZEL <+> 8 Communication By <+> 8 Date and Time <+> 8 Communication To <+> 9 Communication By <+> 9 Date and Time <+> 9 Communication To <+> 9 Comment 11/16/18 11:53:58 Fiscal Manager: ALTIZEL Modifier: ALTIZEL <+> 7 Communication By <+> 7 Date and Time <+> 7 Communication To <+> 7 Comment 11/16/18 11:31:42 Fiscal Manager: ALTIZEL Modifier: ALTIZEL <+> 6 Communication By <+> 6 Date and Time <+> 6 Communication To 11/16/18 10:22:56 Fiscal Manager: ALTIZEL Modifier: ALTIZEL <+> 5 Communication By <+> 5 Date and Time <+> 5 Communication To 11/16/18 09:10:41 Fiscal Manager: ALTIZEL Modifier: ALTIZEL <+> 3 Communication By <+> 3 Date and Time <+> 3 Communication To <+> 4 Communication By <+> 4 Date and Time <+> 4 Communication To <+> 4 Comment [facility] IntraOp Counts Verification Entry 1 Entry 2 Procedure Aortic Aneurysm Aortic Aneurysm Ascending Repair, CABG Ascending Repair, CABG w Aortic Valve, w Aortic Valve, Transesophageal Transesophageal Echocardiogram Echocardiogram Count Info Count Type Sponge, Sharps, Sponge, Sharps, Instrument, Instrument, Miscellaneous Miscellaneous Counts Verification Baseline/pre-procedure Before wound closure Sequence Count Results Correct, surgeon notified If Incorrect or Waived complete the Counts Action Taken form: If Intentional Retention, complete the Intential Retention form: Counts Performed By Count Performed By MELODY MASON ROY (Scrub) Count Performed By RADHA VALENCIA RN ALTIZER, LISA E, RN (RN) Last Modified By: RADHA VALENCIA RN ALTIZER, LISA E, RN 11/16/18 07:20:29 11/16/18 11:54:29 [facility] IntraOp Counts Verification Audit 11/16/18 11:54:29 Fiscal Manager: ALTIZEL Modifier: ALTIZEL <+> 2 Procedure <+> 2 Count Type <+> 2 Counts Verification Sequence <+> 2 Count Results <+> 2 Count Performed By (Scrub) <+> 2 Count Performed By (RN) 11/16/18 09:58:33 Fiscal Manager: ALTIZEL Modifier: ALTIZEL 1 <*> Procedure Aortic Aneurysm Ascending Repair, CABG w Aortic Valve [facility] IntraOp Counts Final Entry 1 Procedure Aortic Aneurysm Ascending Repair, CABG w Aortic Valve, Transesophageal Echocardiogram Final Count Info Count Type Sponge, Sharps, Instrument, Miscellaneous Counts Verification Skin Closure/end of Sequence procedure Count Results Correct, surgeon notified Counts Performed By Count Performed By MELODY MASON (Scrub) Count Performed By RADHA VALENCIA RN (RN) Last Modified By: RADHA VALENCIA RN 11/16/18 12:01:46 [facility] IntraOp Cultures and Spec Summary Entry 1 Cultrures and Specimens Specimen Ordered: Yes Specimens Types Pathology Specimen(s) Labeled Pathology and Sent to Last Modified By: RADHA VALENCIA RN 11/16/18 09:22:38 [facility] IntraOp Departure from OR Entry 1 Integumentary Assessment Integumentary WDL Assessment WDL Transfer/Handoff Transfer to ICU - Cardiovascular Post-op Transport Bed (including Via specialty) Patient Transport SHERRY NICHOLS, Accompanied by Tye KHAN Tom, water resources engineer Last Modified By: RADHA VALENCIA RN 11/16/18 08:42:33 [facility] IntraOp Drains and Tubes Entry 1 Entry 2 Device Type Chest Tube Chest Tube Size 32 Fr. straight 28 Fr. right angle Drain/Tube Activity Tube secured/stabilized Tube secured/stabilized Drain/Tube Suction Drain/Tube Drainage Device Location Mediastinum Mediastinum Method of Drainage Continuous suction Continuous suction Chest Tubes Water-Seal 20 cm suction Water-Seal 20 cm suction Connectivity Tube Dressing Dry, Intact Dry, Intact Condition Surgical Drains and Tubes Irrigation Comment Last Modified By: RADHA VALENCIA RN ALTIZER, LISA E, RN 11/16/18 08:42:54 11/16/18 08:42:54 [facility] IntraOp Dressing and Packing Entry 1 Entry 2 Type Dressing Dressing Location Mediastinum Mediastinum Wound Dressing Item 4x4's, Skin Closure Glue 4x4's Wound Packing Type Tape Type Supplemental Applications Applied By Other Comments Soft cloth paper tape Soft cloth paper tape Last Modified By: RADHA VALENCIA RN ALTIZER, LISA E, RN 11/16/18 08:43:06 11/16/18 08:53:50 [facility] IntraOp Dressing and Packing Audit 11/16/18 08:53:50 Fiscal Manager: SAIGEIZEL Modifier: ALTIZEL <+> 2 Type <+> 2 Location <+> 2 Wound Dressing Item <+> 2 Other Comments [facility] IntraOp Fire Risk Assessment Entry 1 Fire Info Surgical Site or 1- Yes Incision Above the Xyphoid Open O2 Source 0- No (Mask or Cannula) Available Ignition 1- Yes (ESU, Laser, Light Source) Fire Risk 2 Assessment Score Fire Score Fire Risk Yes Assessment Complete Fire Risk RADHA VALENCIA RN Assessment Verified By Fire Risk 11/16/18 07:10:00 Assessment Verified Date/Time Fire Risk Standard Fire Yes Safety Precautions Followed Last Modified By: RADHA VALENCIA RN 11/16/18 07:20:01 [facility] IntraOp Fire Risk Assessment Audit 11/16/18 08:43:21 Fiscal Manager: SAIGEIZEL Modifier: ALTIZEL 1 <*> Fire Risk Assessment Verified 11/16/18 07:19:00 Date/Time [facility] IntraOp General Case Rotary Shear Operator 1 Case Information OR OR 14 [facility] Case Level 2 Room Verified Yes Wound Class I - Clean Specialty SN Cardio Thoracic Anesthesia Type General ASA Class 4 Diagnosis Preop Diagnosis CAD, AORTIC VALVE DISEASE, ASCENDING AORTIC ANEURSYM Postop Diagnosis SEE MD POST OP NOTE Last Modified By: RADHA VALENCIA RN 11/16/18 08:50:46 [facility] IntraOp Implant Log Entry 1 Entry 2 Type Implant (Synthetic) Tissue Implant (Biologic) Implant Log Implant Type Grafts, non-biological Tissue Implant Type Heart valve Implant [facility] PLAT VALVE AORT ROOT Identification [id number] [facility] [id number] Description Implant Quantity 1 1 Implant Site AORTA AORTA Implant Identification Model Number Implant [id number] Identification Serial Number Implant Identification Lot Number Implant Michel Ind:Maquet:Cv Medtronic:Card Surg:Tech Identification Survey Data Technician Name: Implant [id number] Identification Catalog Number Implant Size Implant Has an Yes Yes Expiration Date Implant Expiration 08/23/23 05/20/22 Date Wasted Radioactive Material Time Implanted Tissue Implant Continue for Tissue Implant Documentation Tissue Identification Number Graft Prep Per Yes Survey Data Technician Instructions: Tissue Preparation N/A Method: Reconstitution Solution: Reconstitution Solution Lot Number Reconstitution Solution Expiration Date: Thawing Solution Thawing Solution Lot Number Thawing Solution Expiration Date Preparation NACL Materials, Other Preparation [id number] Materials, Other Lot Number Preparation 06/22/22 Materials, Other Expiration Date Tissue MARLON, MELODY Prepared/Processed By Survey Data Technician Yes Paperwork Completed Implant Type Comment Last Modified By: RADHA VALENCIA RN ALTIZER, LISA E, RN 11/16/18 09:42:38 11/16/18 09:42:38 [facility] IntraOp Intraoperative Assessment Entry 1 Handoff Reported to RADHA VALENCIA RN Valid History / Yes Physical in Chart Preoperative Yes Checklist Reviewed/Evaluated Allergies Reviewed Yes Patient is Latex No Sensitive Isolation Not applicable Precautions Noted Level of WDL Consciousness (WDL = Alert, Oriented to Person, Place, and Time) Patient's Normal WDL Level of Consciousness Variance(s) Skin Assessment Yes Verified Present Upon IVs Arrival to OR Last Modified By: RADHA VALENCIA RN 11/16/18 08:25:54 [facility] IntraOp Intraoperative Equipment Entry 1 Equipment Intraop Monitoring Blood Pressure Non-Invasive BP Device Source Blood Pressure Arm, right upper Location Pulse Oximeter Hand, left Probe Site Antiembolic Devices Scopes Photo/Video Documentation Last Modified By: RADHA VALENCIA RN 11/16/18 08:51:22 [facility] IntraOp Medication Admin Entry 1 Entry 2 Entry 3 Medication/Irrigant papverine HCL 30mg/ml lidocaine 1% 50ml vial NS 0.9% 50ml injection 10ml - [id number] - [id number] - [id number] Combo Med List Time Administered Route of FLUSH MAMMARY LOCAL FLUSH Administration Dose Dose 150 8 30 Unit of Measure mg ml ml Volume Administered By JULIO CESAR CARVALHO MD-[facility] ERASMO LÓPEZ PA MEECE, PAUL, PA Procedure Irrigation Irrigant Volume In Irrigant Volume Out Last Modified By: RADHA VALENCIA RN ALTIZER, LISA E, RN ALTIZER, LISA E, RN 11/16/18 08:52:11 11/16/18 11:07:14 11/16/18 08:52:11 Entry 4 Entry 5 Medication/Irrigant Ancef 1Gm advantage KT TISSEEL VH SD vial - [id number] Combo Med List Time Administered Route of IRRIGATION TOPICAL Administration Dose Dose 1 10 Unit of Measure gram ml Volume Administered By JULIO CESAR CARVALHO MD-CAT JULIO CESAR CARVALHO MD-CAT Procedure Irrigation Irrigant Volume In Irrigant Volume Out Last Modified By: RADHA VALENCIA RN ALTIZER, LISA E, RN 11/16/18 08:52:11 11/16/18 09:49:07 [facility] IntraOp Medication Admin Audit 11/16/18 11:07:14 Fiscal Manager: ALTIZEL Modifier: ALTIZEL 2 <*> Medication/Irrigant lidocaine 1% 50ml vial - [id number] <*> Administered By ALLA SORIANO RN 11/16/18 09:49:07 Fiscal Manager: ALTIZEL Modifier: ALTIZEL <+> 5 Medication/Irrigant <+> 5 Route of Administration <+> 5 Administered By <+> 5 Dose <+> 5 Unit of Measure [facility] IntraOp Patient Positioning Entry 1 Procedure Aortic Aneurysm Ascending Repair, CABG w Aortic Valve, Transesophageal Echocardiogram Body Position Supine Left Arm Position Tucked and padded at side Right Arm Position Tucked and padded at side Left Leg Position Uncrossed, parallel Right Leg Position Uncrossed, parallel Feet Uncrossed Yes Pressure Points Yes Checked Positioning Devices Head Rest, Pad, Elbow, Safety Strap, Thighs, Wedge, Roll, Shoulder Device Position Tempurpedic mattress pad & Megadyne gel pad under patient, foam khoury headrest, foam ulnar nerve protectors, safety belt pre-prep, positioning assisted by anesthesiologist Positioned By RADHA VALENCIA RN, ALLA SORIANO RN, SHERRY NICHOLS MD Position Verified Positioning Yes Verified by Anesthesia Positioning Yes Verified by Surgeon Last Modified By: RADHA VALENCIA RN 11/16/18 08:49:03 [facility] IntraOp Patient Positioning Audit 11/16/18 09:58:34 Fiscal Manager: ALTIZEL Modifier: ALTIZEL 1 <*> Procedure Aortic Aneurysm Ascending Repair, CABG w Aortic Valve [facility] IntraOp Sign In Entry 1 Patient, Site, Yes Procedure Identified Surgical Consent Yes Confirmed Relevant Surgical Yes Documents Available Surgical Site N/A Marked by person performing procedure Anesthesia Machine Yes Check Completed Medication Checks Yes Completed Allergies Yes Airway Difficult Yes Airway/Aspiration Risk Difficult Yes Airway/Aspiration Intervention Equipment Available Blood Loss Risk Yes Blood Loss Yes Intervention Equipment Prepared and Ready Hypothermia Risk Yes Warming Measures Yes Taken Last Modified By: RADHA VALENCIA RN 11/16/18 07:19:47 [facility] IntraOp Sign Out Entry 1 RN Confirmation Surgical Yes Procedure(s) Identified Instrument, Sponge Yes and Sharps Counts Correct/Documented Equipment Problems Yes Documented Specimen Labeled Yes Correctly Urinary Catheter Yes Documented in IView Flores Patient Yes Recovery Concerns Reviewed with Anesthesia Provider, Surgeon and RN Flores Patient Yes Management Concerns Reviewed with Anesthesia Provider, Surgeon and RN Safety Checklist Yes Elements Complete? RN Sign Out RADHA VALENCIA RN Signature RN Sign Out 11/16/18 12:41:00 Signature Date/Time Plan of Care Outcome - [...] of Care Outcome - Xray/Images OUTCOME STATEMENT: Goal met Absence of observable signs or symptoms of radiation injury Plan of Care Outcome - Counts OUTCOME STATEMENT: Goal met Absence of signs and symptoms of injury related to extraneous objects Last Modified By: RADHA VALENCIA RN 11/16/18 12:41:17 [facility] IntraOp Skin Prep Entry 1 Procedure Transesophageal Echocardiogram Prescribed Yes Pre-Surgical Prep Completed Prep Area Chin to TOES Intraop Prep Integumentary WDL Assessment WDL Patients Normal WDL Integumentary Variance(s) Prep Agents Chloraprep Prep by RADHA VALENCIA RN Skin Prep Comment Xander Soriano also prepped Hair Removal Last Modified By: RADHA VALENCIA RN 11/16/18 08:52:45 [facility] IntraOp Skin Prep Audit 11/16/18 09:58:34 Fiscal Manager: ALTIZEL Modifier: ALTIZEL <+> 1 Procedure [facility] IntraOp Surgical Procedures Entry 1 Entry 2 Entry 3 Procedure Aortic Aneurysm CABG w Aortic Valve Transesophageal Ascending Repair Echocardiogram Modifiers Additional LUMA, MEDIAN STERNOTOMY, Procedure CABG X 1, DONOR Description RUSSELL,ASCENDING AORTIC ANEURYSM REPAIR, AORTIC VALVE REPLACEMENT Primary Procedure Yes No No Primary Surgeon JULIO CESAR CARVALHO MD-JULIO CESAR LLOYD MD-SHERRY JOHNSON MD Start 11/16/18 08:20:00 11/16/18 08:20:00 11/16/18 08:20:00 Stop 11/16/18 12:22:00 11/16/18 12:22:00 11/16/18 12:22:00 Physician States Cecum Reached Anesthesia Type General General General Specialty SN Cardio Thoracic SN Cardio Thoracic SN Anesthesia Wound Class I - Clean I - Clean I - Clean Last Modified By: RADHA VALENCIA RN ALTIZER, LISA E, RN ALTIZER, LISA E, RN 11/16/18 09:57:36 11/16/18 08:49:06 11/16/18 09:58:24 [facility] IntraOp Surgical Procedures Audit 11/16/18 12:41:26 Fiscal Manager: ALTIZEL Modifier: ALTIZEL <+> 1 Stop <+> 2 Stop <+> 3 Stop 11/16/18 10:51:43 Fiscal Manager: ALTIZEL Modifier: ALTIZEL 1 <*> Procedure Aortic Aneurysm Ascending Repair 11/16/18 10:17:14 Fiscal Manager: ALTIZEL Modifier: ALTIZEL <+> 3 Start 11/16/18 09:58:24 Fiscal Manager: ALTIZEL Modifier: ALTIZEL <+> 3 Procedure <+> 3 Primary Procedure <+> 3 Primary Surgeon <+> 3 Specialty <+> 3 Wound Class <+> 3 Anesthesia Type 11/16/18 09:57:36 Fiscal Manager: ALTIZEL Modifier: ALTIZEL 1 <*> Procedure Aortic Aneurysm Ascending Repair 1 <*> Additional Procedure Description (ASCENDING AORTIC ANEURYSM REPAIR, CABG, POSSIBLE AORTIC VALVE REPLACEMENT) [facility] IntraOp Temp Regulation Devices Entry 1 Entry 2 Temp Regulation Temperature Forced Air Warming Warm blankets Regulation Device device Temperature 180740 Regulation Device Serial/Unit Number Temperature Lower body Full body Regulation Site Temperature Device 43 DEG C Setting Temperature RADHA VALENCIA RN ALTIZER, LISA E, RN Regulation Device Applied by Temperature CATIA HUGGER TURNED ON Regulation Comment AFTER AORTIC CROSS CLAMP REMOVED Last Modified By: RADHA VALENCIA RN ALTIZER, LISA E, RN 11/16/18 08:53:25 11/16/18 08:53:25 [facility] IntraOP Time Out Entry 1 Procedure to be Aortic Aneurysm Performed Ascending Repair, CABG w Aortic Valve, Transesophageal Echocardiogram Time Out Time Out Pause Time 11/16/18 08:20:00 All activity Yes suspended (unless life threatening emergency) Team Verbally Correct patient Confirms Information identity, Consent form is present and accurate, Agreement on the procedure to be done, Correct patient position, Confirm antibiotics have been administered, Confirm the skin prep has dried, Confirm prosthesis/implant/devic e is present, Performed in location of procedure after prepped/draped Antibiotic Yes Prophylaxis Administered Or In Progress Within the Last 60 Minutes Beta Rachael Yes Administered Venous Yes Thromboembolism Prophylaxis Required Anticipated Critical Events Surgeon None expected Anesthesia Provider None expected Nursing Assures Sterility of instruments Essential Imaging N/A Labeled and Displayed Last Modified By: RADHA VALENCIA RN 11/16/18 09:58:34 [facility] IntraOP Time Out Audit 11/16/18 09:58:34 Fiscal Manager: EARNESTINE Modifier: ALTIZEL 1 <*> Procedure to be Performed Aortic Aneurysm Ascending Repair, CABG w Aortic Valve Case Comments <None> Finalized By: JODI PITT Document Signatures Signed By: RADHA VALENCIA RN 11/16/18 12:41 JODI PITT 11/17/18 10:03 Unfinalized History Date/Time Username Reason for Unfinalizing Freetext Reason for Unfinalizing 11/17/18 09:59 [email or web address] Correct Billing Electronically signed by Parveen [facility] Conversion Van Helper Cerner at 12/08/2022 12:09 PM CDT documented in this encounter Plan of Treatment Not on file documented as of this encounter Visit Diagnoses Not on filedocumented in this encounter
--- OUTSIDE RECORDS SUMMARY | 2025-02-23 11:53 | XMS_ITS | Encounter Summary ---
Author Organization [employer] ([place], [place], [place], [place]) Address [address] [place] [address] Care Team Providers Care Admissions Consultant Name Role Phone Unavailable Primary Care Provider Unavailabl e Encounter Details Date Type Department Care Team (Late st Contact Info) Description 11/20/2018 Transcribed Document [facility] [place] [address] [place] [address] ProviderErika MD [address] [place] [address] Social History Tobacco Use Types Packs/Day Years Used Date Smoking Tobacco: Never Assessed Sex and Gender Information Value Date Recorded Sex Assigned at Not on file Legal Sex Male 5:03 PM CDT Gender Identity Not on file Sexual Orientation Not on file documented as of this encounter Miscellaneous Notes * Cerner Conversion Note - Erika Jose MD - 11/20/2018 8:38 AM CDT Swallow Evaluation Entered On: 11/20/2018 9:26 EDT Performed On: 11/20/2018 9:21 EDT by TORREY ZUNIGA SLP General Information Visit Type, WATCH REPAIRER : Initial evaluation Patient Orders : WATCH REPAIRER Fxnl Limitation Documentation x 1 -111 Start: 11/20/18 8:39:00 EDT - SYSTEM, SYSTEM WATCH REPAIRER Bedside Swallow Evaluation - Start: 11/20/18 8:38:00 EDT, Routine, For Swallow Eval and Treat -111 MICHAEL RODRIGUEZ MD Ordering Provider : MICHAEL RODRIGUEZ MD Admission Date : Admission Date/Time: 11/16/18 06:45:00 Personal Devices : Personal Devices No Devices Recorded Assistive Devices : Assistive Devices No Devices Recorded Active Diagnoses : 11/17/2018 00:00 Atherosclerotic heart disease of [place] coronary artery without angina pectoris 11/17/2018 00:00 Essential (primary) hypertension 11/17/2018 00:00 Hypothyroidism, unspecified 11/17/2018 00:00 Nonrheumatic aortic (valve) insufficiency 11/17/2018 00:00 Restless legs syndrome 11/17/2018 00:00 Thoracic aortic aneurysm, without rupture 11/17/2018 00:00 Thrombocytopenia, unspecified 11/16/2018 00:00 Atherosclerotic heart disease of [place] coronary artery without angina pectoris 11/16/2018 00:00 Nonrheumatic aortic (valve) insufficiency 11/16/2018 00:00 Thoracic aortic aneurysm, without rupture Therapy Diagnosis, WATCH REPAIRER : overt signs and symptoms of aspiration at bedside Previous Speech/Language Evaluations : N/A Previous Swallow Precautions : N/A Previous Cognitive Evaluations : N/A Diet/Intake Prior to Current Admission : Regular/thin Diet/Intake During Current Admission : NPO Intubation Comment, WATCH REPAIRER : 11/16-11/17 Vital Signs RTF : Vitals [...] kg 174 lb Respiratory Assessment Comment : Nasal cannula 3 L/min TORREY ZUNIGA WATCH REPAIRER - 11/20/2018 9:21 EDT General Status Patient Received Status, WATCH REPAIRER : Long sitting in bed Patient Left Status, WATCH REPAIRER : Long sitting in bed TORREY ZUNIGA SLP - 11/20/2018 9:21 EDT Pain Assessment Pain Scaled Used : FACES Duration : 0 TORREY ZUNIGA SLP - 11/20/2018 9:21 EDT Image 1 - Images currently included in the form version of this document have not been included in the text rendition version of the form. Oral Mechanism Dysarthria : No Brief Phonation Quality : Hoarse, Other: Weak Resonance Types : Appropriate WATCH REPAIRER Cough : Weak Facial Appearance: : Symmetrical Labial Appearance : Symmetrical Labial Function : Weak lip strength, upper, Weak lip strength, lower Condition of Dentition : Intact Lingual Appearance : Symmetrical Lingual Function : Lateralization, impaired left, Lateralization, impaired right, Other: overall weakness Soft Palate (Velum) Appearance : Symmetrical Soft Palate Function : Function intact Hard Palate Appearance/ Structure : Structure intact Mandible Appearance/Structure : Intact Mandibular Function : Impaired strength with resistance, closing, Impaired strength with resistance, opening TORREY ZUNIGA SLP - 11/20/2018 9:21 EDT Bedside Swallow Swallow Outcome BS Swallow : Impaired Oral Care Completed : Yes Head Control BS Swallow : Neutral head position Presentation Style BS Swallow : Clinician Swallow Position BS Swallow : Upright 90 degrees Trunk Control BS Swallow : Upright centered position Consistencies Trialed BS Swallow : Ice chips, Thin by spoon, Thin by cup, Thin by straw, Pureed TORREY ZUNIGA SLP - 11/20/2018 9:21 EDT Swallow Impressions Bedside Swallow Overall Impressions : Patient is a 78 year old male status post resection and grafting of throacic aortic aneurysm, aortic valve replacement and CABG x1 on 11/16. Patient's voice and cough noted to be weak. Patient presents with overt signs and symptoms of aspiration at bedside. Patient throat cleared with ice chips on 1/2 trials and throat cleared with thin via straw. Multiple swallows noted with thin via straw and puree. WATCH REPAIRER unable to determine safe diet at bedside, recommend FEES to further assess swallow function. Continue NPO with alternate means of nutrition and meds until FEES. WATCH REPAIRER discussed results and recs with patient and family. TORREY ZUNIGA SLP - 11/20/2018 9:26 EDT Impressions, BS Swallow : Signs/Symptoms of pharyngeal dysphagia Swallowing Outcome Measures : Functional Oral Intake Scale (FOIS) Functional Oral Intake Scale (FOIS) : Level I TORREY ZUNIGA WATCH REPAIRER - 11/20/2018 9:21 EDT Swallow Recommendations Recommended Diet Type, SwRec : Non-oral feeding, NPO Swallow Position, SwRec : Upright 90 degrees Recommended Med Present, SwRec : Non-oral Recommended Exam, Sw Rec : FEES Repeat Swallow Exam Timeframe : 1-3 days TORREY ZUNIGA SLP - 11/20/2018 9:26 EDT Therapy Indication Assessment WATCH REPAIRER Indicated : Yes WATCH REPAIRER Problem List : Impaired, Swallowing TORREY ZUNIGA SLP - 11/20/2018 9:26 EDT Swallow Plan/Goals Treatment Frequency, WATCH REPAIRER : 4 times per wk Treatment Duration, WATCH REPAIRER : Two weeks TORREY ZUNIGA SLP - 11/20/2018 9:26 EDT Swallow LTG Grid WATCH REPAIRER Nurses Medical Assistants Phlebotomists Goal #1 Swallow LTG : Establish safe oral diet without aspiration Status : Initial TORREY ZUNIGA SLP - 11/20/2018 9:26 EDT Swallow Goals Grid Goal #1 Swallow STG : Other: Participate in FEES Related To : Aspiration prevention, Return to oral intake Date to Meet : 11/21/2018 EDT Status : Initial goal TORREY ZUNIGA SLP - 11/20/2018 9:26 EDT Education Barriers To Learning : None evident Individuals Taught : Patient Readiness to Learn : Cooperative Readiness to Learn : Demonstration TORREY ZUNIGA SLP - 11/20/2018 9:26 EDT WATCH REPAIRER Education Assessment Grid 1 Diet Recommendation : Verbalizes understanding Dysphagia : Verbalizes understanding Non-Oral Nutrition : Verbalizes understanding NPO : Verbalizes understanding TORREY ZUNIGA SLP - 11/20/2018 9:26 EDT WATCH REPAIRER Education Assessment Grid 2 Treatment Plan : Verbalizes understanding TORREY ZUNIGA SLP - 11/20/2018 9:[address] [place] WATCH REPAIRER Charges Evaluation Swallowing Function : 1 TORREY ZUNIGA SLP - 11/20/2018 9:26 EDT Functional Limitation Reporting, WATCH REPAIRER Functional Limitation Visit Type, WATCH REPAIRER : Initial evaluation Severity Determination Method, WATCH REPAIRER : Clinical Judgment, Swallowing Swallow G8996 - Current Mod, WATCH REPAIRER : 80 - 99% impaired, limited or restricted (CM) Swallow G8997 - Proj Goal Mod, WATCH REPAIRER : 1 - 19% impaired, limited or restricted (CI) TORREY ZUNIGA SLP - 11/20/2018 9:26 EDT Electronically signed by Parveen [facility] Conversion Sprinkling System Irrigator Cerner at 12/08/2022 12:30 PM CDT documented in this encounter Plan of Treatment Not on file documented as of this encounter Visit Diagnoses Not on filedocumented in this encounter
--- OUTSIDE RECORDS SUMMARY | 2025-02-23 11:53 | XMS_ITS | Encounter Summary ---
Author Organization [employer] ([place], [place], [place], [place]) Address [address] [place] [address] Care Team Providers Care Mine Production Engineer Name Role Phone Unavailable Primary Care Provider Unavailabl e Encounter Details Date Type Department Care Team (Late st Contact Info) Description 12/01/2018 Transcribed Document [facility] [place] [address] [place] [address] ProviderErika MD [address] [place] [address] Social History Tobacco Use Types Packs/Day Years Used Date Smoking Tobacco: Never Assessed Sex and Gender Information Value Date Recorded Sex Assigned at Not on file Legal Sex Male 5:03 PM CDT Gender Identity Not on file Sexual Orientation Not on file documented as of this encounter Miscellaneous Notes * Cerner Conversion Note - Historical ProviderMD - 12/01/2018 2:00 AM CDT Evaporator Helper Details Entered On: 12/01/2018 0:23 EDT Performed On: 12/01/2018 2:00 EDT by Dixie Fox, RN Order [...] Line : No Dixie Fox, RN - 12/01/2018 0:22 EDT documented in this encounter Plan of Treatment Not on file documented as of this encounter Visit Diagnoses Not on filedocumented in this encounter
--- OUTSIDE RECORDS SUMMARY | 2025-02-23 11:53 | XMS_ITS | Encounter Summary ---
Author Organization [employer] ([place], [place], [place], [place]) Address [address] [place] [address] Care Team Providers Care Supervisor Hot Strip Mill Name Role Phone Unavailable Primary Care Provider Unavailabl e Encounter Details Date Type Department Care Team (Late st Contact Info) Description 12/01/2018 Transcribed Document [facility] [place] [address] [place] [address] ProviderErika MD [address] [place] [address] Social History Tobacco Use Types Packs/Day Years Used Date Smoking Tobacco: Never Assessed Sex and Gender Information Value Date Recorded Sex Assigned at Not on file Legal Sex Male 5:03 PM CDT Gender Identity Not on file Sexual Orientation Not on file documented as of this encounter Miscellaneous Notes * Cerner Conversion Note - Erika Jose MD - 12/01/2018 1:35 PM CDT Stroke/Warfarin Instructions Entered On: 12/01/2018 13:36 EDT Performed On: 12/01/2018 13:35 EDT by NAIN JARRETT RN Stroke/Warfarin Instructions Stroke/TIA Discharge Ins : Open Warfarin Discharge Ins : N/A NAIN JARRETT RN - 12/01/2018 13:35 EDT Stroke/TIA Discharge Instructions Individualized Stroke Risk Factors *Q : Coronary artery disease, High cholesterol, Previous stroke Stroke Education Handouts Given *Q : Yes NAIN JARRETT RN - 12/01/2018 13:35 EDT Stroke Education Materials Given-Grid Activation of EMS *Q : Verbalizes understanding Follow-up Care After Discharge *Q : Verbalizes understanding Medications prescribed at DC *Q : Verbalizes understanding Risk Factors for Stroke *Q : Verbalizes understanding Warning S&S of Stroke *Q : Verbalizes understanding NAIN JARRETT RN - 12/01/2018 13:35 EDT Stroke/TIA Signs/Symptoms to Report Immediately : Sudden onset difficulty speaking, Sudden onset difficulty understanding speech, Sudden onset change in vision, Sudden onset weakness particulary on one side of the body, Sudden onset numbness/tingling, Sudden severe headache, Sudden dizziness or trouble with gait, Call : EMS activation is crucial My LDL Level: : LDL Level Cholesterol LDL Calculation: 62.2 mg/dL (11/15/18 14:15:00) NAIN JARRETT RN - 12/01/2018 13:35 EDT documented in this encounter Plan of Treatment Not on file documented as of this encounter Visit Diagnoses Not on filedocumented in this encounter
--- OUTSIDE RECORDS SUMMARY | 2025-02-23 11:53 | XMS_ITS | Encounter Summary ---
Author Organization [employer] ([place], [place], [place], [place]) Address [address] [place] [address] Care Team Providers Care Methodologist Name Role Phone Unavailable Primary Care Provider Unavailabl e Encounter Details Date Type Department Care Team (Late st Contact Info) Description 11/25/2018 Transcribed Document [facility] [place] Medicine [address] [place] [address] ProviderErika MD [address] [place] [address] Social History Tobacco Use Types Packs/Day Years Used Date Smoking Tobacco: Never Assessed Sex and Gender Information Value Date Recorded Sex Assigned at Not on file Legal Sex Male 5:03 PM CDT Gender Identity Not on file Sexual Orientation Not on file documented as of this encounter Miscellaneous Notes * Cerner Conversion Note - Erika Jose MD - 11/25/2018 1:48 PM CDT Patient: DOTTIE VILLASENOR Age: 78 Years Sex: Male : 1940 Subjective Patient has been moved to floor bed since I last saw him. His and son are in room and they tell me patient is still very weak on left side. Review of Systems heme - patient has been found to have a left upper extremity DVT and is being started on IV heparin and Coumadin. GI - nurse reports that patient ate about 30% of his breakfast. Objective Vitals & Measurements T: 36.9 ??C TMIN: 36.3 ??C TMAX: 37.2 ??C HR: 78(Monitored) RR: 18 BP: 124/74 SpO2: 95% Physical Exam Speech -fluent Motor - left sided weakness. Assessment/Plan 78 year old male who underwent [...] the most likely cause of the strokes. Recommend : a) Given DVT , I agree with anticoagulation. b) At discharge he should follow up with an outpatient neurologist and not drive until released by a physician. I have spent over 25 minutes on this case today. Over half that time was spent counseling and son. I pulled up MRI images and showed them the areas of cerebral infarction. I explained that the recovery from a stroke can take up to two years. I explained that strokes are unpredictable but that he could could regain anywhere between 20 - 80% function over months. I will follow intermittently. Medications Inpatient acetaminophen, 325 mg= 1 Tab, Oral, Q4H, PRN aspirin, 81 mg= 1 Tab, Oral, Daily Avodart, 0.5 mg= 1 Cap, Oral, AC Dinner calcium chloride Chap Stick, 1 Application, Topical, Q1H, PRN Colace, 100 mg= 1 Cap, Oral, BID Dulcolax Laxative, 10 mg= 1 Supp, Rectal, 1-Time, PRN DuoNeb 0.5 mg-2.5 mg/3 mL inhalation solution, 3 mL, Nebulized Inhalation , RT_Q4H, PRN heparin injection 25,000 Units + NaCl 0.45% Premix Diluent 250 mL hydrALAZINE, 10 mg= 0.5 mL, IV Push, Q6H, PRN levothyroxine, 50 mcg= 1 Tab, Oral, Daily losartan, 100 mg= 2 Tab, Oral, Daily metoprolol tartrate, 50 mg= 1 Tab, Oral, Q12H Milk of Magnesia 8% oral suspension, 30 mL, Oral, Q8H, PRN Normal Saline Flush, 10 mL, IV Push, See Comment, PRN Normal Saline Flush, 10 mL, IV Push, Q8H Norvasc, 10 mg= 1 Tab, Oral, Daily Reglan, 5 mg= 1 mL, IV Push, Q6H, PRN rOPINIRole, 2 mg= 2 Tab, Oral, At Bedtime saliva substitutes, 1 [place], Buccal, Q2H, PRN Senokot, 17.2 mg= 2 Tab, Oral, BID warfarin, 5 mg= 1 Tab, Oral, Daily Zofran, 4 mg= 2 mL, IV Push, Q4H, PRN Electronically signed by Parveen, [facility] Conversion Manufacturing Plant Technician Cerner at 12/08/2022 12:38 PM CDT documented in this encounter Plan of Treatment Not on file documented as of this encounter Visit Diagnoses Not on filedocumented in this encounter
--- OUTSIDE RECORDS SUMMARY | 2025-02-23 11:53 | XMS_ITS | Encounter Summary ---
Author Organization [employer] ([place], [place], [place], [place]) Address [address] [place] [address] Care Team Providers Care Production Recorder Name Role Phone Unavailable Primary Care Provider Unavailabl e Encounter Details Date Type Department Care Team (Late st Contact Info) Description 11/18/2018 Transcribed Document [facility] [place] [address] [place] [address] ProviderErika MD [address] [place] [address] Social History Tobacco Use Types Packs/Day Years Used Date Smoking Tobacco: Never Assessed Sex and Gender Information Value Date Recorded Sex Assigned at Not on file Legal Sex Male 5:03 PM CDT Gender Identity Not on file Sexual Orientation Not on file documented as of this encounter Miscellaneous Notes * Cerner Conversion Note - Erika ProviderMD - 11/18/2018 5:00 AM CDT Chart Check - Review Order Profile Entered On: 11/18/2018 4:42 EDT Performed On: 11/18/2018 5:00 EDT by DANYA GILES RN Chart Check Chart Reviewed Date and Time : 11/18/2018 4:42 EDT Powerplans Initiated/Discontinued as Appropriate : Yes All Active Orders Reviewed : Yes DANYA GILES RN - 11/18/2018 4:42 EDT documented in this encounter Plan of Treatment Not on file documented as of this encounter Visit Diagnoses Not on filedocumented in this encounter
--- OUTSIDE RECORDS SUMMARY | 2025-02-23 11:53 | XMS_ITS | Encounter Summary ---
Author Organization [employer] ([place], [place], [place], [place]) Address [address] [place] [address] Care Team Providers Care Turpentine Distiller Name Role Phone Unavailable Primary Care Provider Unavailabl e Encounter Details Date Type Department Care Team (Late st Contact Info) Description 11/28/2018 Transcribed Document [facility] [place] Family Medicine [address] [place] [address] ProviderErika MD [address] [place] [address] Social History Tobacco Use Types Packs/Day Years Used Date Smoking Tobacco: Never Assessed Sex and Gender Information Value Date Recorded Sex Assigned at Not on file Legal Sex Male 5:03 PM CDT Gender Identity Not on file Sexual Orientation Not on file documented as of this encounter Miscellaneous Notes * Cerner Conversion Note - Historical ProviderMD - 11/28/2018 5:00 PM CDT Chart Check - Review Order Profile Entered On: 11/28/2018 17:22 EDT Performed On: 11/28/2018 17:00 EDT by REESE OCONNOR Rn Chart Check Chart Reviewed Date and Time : 11/28/2018 17:22 EDT Powerplans Initiated/Discontinued as Appropriate : Yes All Active Orders Reviewed : Yes REESE OCONNOR Rn - 11/28/2018 17:22 EDT documented in this encounter Plan of Treatment Not on file documented as of this encounter Visit Diagnoses Not on filedocumented in this encounter
--- OUTSIDE RECORDS SUMMARY | 2025-02-23 11:53 | XMS_ITS | Encounter Summary ---
Author Organization [employer] ([place], [place], [place], [place]) Address [address] [place] [address] Care Team Providers Care Clothes Wringer Name Role Phone Unavailable Primary Care Provider Unavailabl e Encounter Details Date Type Department Care Team (Late st Contact Info) Description 11/16/2018 Transcribed Document [facility] [place] Family Medicine [address] [place] [address] ProviderErika MD [address] [place] [address] Social History Tobacco Use Types Packs/Day Years Used Date Smoking Tobacco: Never Assessed Sex and Gender Information Value Date Recorded Sex Assigned at Not on file Legal Sex Male 5:03 PM CDT Gender Identity Not on file Sexual Orientation Not on file documented as of this encounter Miscellaneous Notes * Cerner Conversion Note - Erika ProviderMD - 11/16/2018 12:27 PM CDT Pain Assessment Entered On: 11/16/2018 18:56 EDT Performed On: 11/16/2018 13:23 EDT by FROY NEIL RN Intervention Information: morphine Performed by FROY NEIL RN on 11/16/2018 12:53:00 EDT morphine,4mg IV Push,Cordis,Pain (Severe 7-10) Pain Assessment Pain Assessment : Follow-up assessment Pain Scale Goal : 4 Pain Scale Used : FACES FROY NEIL RN - 11/16/2018 18:55 EDT Pain Scale Intensity : 4 FROY NEIL RN - 11/16/2018 18:55 EDT Image 4 - Images currently included in the form version of this document have not been included in the text rendition version of the form. Electronically signed by Christina Saini Conversion Golf Club Head Inspector And Adjuster Cerner at 12/12/2022 8:26 AM CDT documented in this encounter Plan of Treatment Not on file documented as of this encounter Visit Diagnoses Not on filedocumented in this encounter
--- OUTSIDE RECORDS SUMMARY | 2025-02-23 11:53 | XMS_ITS | Encounter Summary ---
Author Organization [employer] ([place], [place], [place], [place]) Address [address] [place] [address] Care Team Providers Care Frontload Driver Name Role Phone Unavailable Primary Care Provider Unavailabl e Encounter Details Date Type Department Care Team (Late st Contact Info) Description 12/01/2018 Transcribed Document [facility] [place] [address] [place] [address] ProviderErika MD [address] [place] [address] Social History Tobacco Use Types Packs/Day Years Used Date Smoking Tobacco: Never Assessed Sex and Gender Information Value Date Recorded Sex Assigned at Not on file Legal Sex Male 5:03 PM CDT Gender Identity Not on file Sexual Orientation Not on file documented as of this encounter Miscellaneous Notes * Cerner Conversion Note - Erika Jose MD - 12/01/2018 1:32 PM CDT [address] [address] Patient Copy Patient Information: Name: DOTTIE VILLASENOR Current Date: 12/01/2018 13:32:25 : 1940 Patient Address: [address] [place] [id number] Patient Attending Physician: JULIO CESAR CARVALHO MD-CAT Primary Care Provider: DEMETRICE ARMIJO NP-[facility] Primary Care Provider Discharge Diagnosis: Acute blood loss anemia; Aortic insufficiency; Coronary artery disease; GI bleed; LUE DVT (deep venous thrombosis); Right MCA CVA (cerebral vascular accident); Thoracic ascending aortic aneurysm Weight on Admission: 174 lb, 5 oz Weight at Discharge: 159 lb Comment: Follow-up Instructions: With: Address: When: DEMETRICE ARMIJO [address] [place], [place] [id number] Within 1 week Comments: When you are discharged from [facility] please call to make a 1 week hospital follow-up appointment. With: Address: When: JULIO CESAR DEY [address] [place] [place] [address] Business (1) 1:15 PM With: Address: When: JULIO CESAR CARVALHO [address] [place] [address] Business (1) Within 2 weeks With: Address: When: JOHN BOWEN [address] [place] [address] Business (1) Within 6 weeks Comments: Patient should call for a follow up appointment with [facility]. Discharge Instructions: Driving after Discharge: Do not drive, Other: No driving or operating heavy machinery until released by a physician. Community Services: Outpt Cardiac Rehab [facility] [phone] They will call pt w/ appt time. Immunizations Documented During Stay: No Immunizations Found Heart Failure Discharge Instructions (if any): Stroke Related Discharge Instructions (if any): Warfarin Related Discharge Instructions (if any): Final Medication List: Other Medications acetaminophen (acetaminophen 325 mg oral tablet) 1 Tablet(s) Oral Every 4 Hours as needed Fever. albuterol-ipratropium (DuoNeb 0.5 mg-2.5 mg/3 mL inhalation solution) 3 Milliliter(s) Nebulized Inhalation Every 4 Hours as needed Shortness of Breath. amLODIPine (Norvasc 10 mg oral tablet) 1 Tablet(s) Oral Every Day. atorvastatin (Lipitor 20 mg oral tablet) 1 Tablet(s) Oral At Bedtime. docusate (Colace 100 mg oral capsule) 1 Capsule(s) Oral Two Times A Day. dutasteride (Avodart 0.5 mg oral capsule) 1 Capsule(s) Oral Before Dinner. emollients, topical (Chap Stick) 1 Application(s) Topical Every Hour as needed Other (See Comment). levothyroxine (levothyroxine 50 mcg (0.05 mg) oral tablet) 1 Tablet(s) Oral Every Day. losartan (losartan 100 mg oral tablet) 1 Tablet(s) Oral Every Day. magnesium hydroxide (Milk of Magnesia 8% oral suspension) 30 Milliliter(s) Oral Every 8 Hours as needed Constipation. metoclopramide (Reglan) 5 Milligram(s) Intravenous Push Every 6 Hours as needed Nausea/Vomiting. metoprolol (Metoprolol Tartrate 25 mg oral tablet) 1 Tablet(s) Oral Two Times A Day. miSOPROStol (Cytotec 100 mcg oral tablet) 1 Tablet(s) Oral Four Times A Day. ondansetron (Zofran 2 mg/mL injectable solution) 2 Milliliter(s) Intravenous Push Every 4 Hours as needed Nausea. pantoprazole (pantoprazole 40 mg oral delayed release tablet) 1 Tablet(s) Oral Two Times A Day. rOPINIRole (rOPINIRole 1 mg oral tablet) 2 Tablet(s) Oral Two Times A Day. sucralfate (Carafate 1 g/10 mL oral suspension) 10 Milliliter(s) Oral Before Meals and at Bedtime. Patient Allergies: No Known Medication Allergies; [...] 09/17/2005 Document Revised: 01/15/2017 Document Reviewed: 02/10/2014 [employer] Interactive Patient Education ? 2017 [employer] CIGARETTE SMOKING: The facts are clear, cigarette smoking will shorten your life. Smoking can cause many illnesses along the way. As a healthcare provider, we recommend that you stop smoking. Assistance with quitting is available by contacting 7-983-JGSJ-NOW. This is a free resource providing counseling, [...] Be sure to sign up for the [employer] patient portal, which gives you 16/03 access to your medical information ??? including these discharge instructions ??? using your computer, smartphone, or tablet. Just go to [employer] to get started. Questions? Call . [facility] would like to thank you for allowing us to assist you with your healthcare needs. HAMILTON Jarivs ROBERT H, (or patient care representative) have received the above patient education materials/instructions and have verbalized understanding: Patient Signature _ Date/Time Patient Lead Portfolio Manager Signature (if needed) Date/Time Clinician/Hospital Lead Portfolio Manager Signature (if needed) Date/Time documented in this encounter Plan of Treatment Not on file documented as of this encounter Visit Diagnoses Not on filedocumented in this encounter
--- OUTSIDE RECORDS SUMMARY | 2025-02-23 11:53 | XMS_ITS | Encounter Summary ---
Author Organization [employer] ([place], [place], [place], [place]) Address [address] [place] [address] Care Team Providers Care Hand Counter Name Role Phone Unavailable Primary Care Provider Unavailabl e Encounter Details Date Type Department Care Team (Late st Contact Info) Description 11/23/2018 Transcribed Document [facility] [place] Family Medicine [address] [place] [address] ProviderErika MD [address] [place], [place] [id number] Social History Tobacco Use Types Packs/Day Years Used Date Smoking Tobacco: Never Assessed Sex and Gender Information Value Date Recorded Sex Assigned at Not on file Legal Sex Male 5:03 PM CDT Gender Identity Not on file Sexual Orientation Not on file documented as of this encounter Miscellaneous Notes * Cerner Conversion Note - Erika Jose MD - 11/23/2018 1:08 PM CDT Patient: DOTTIE VILLASENOR Age: 78 years Sex: Male : 1940 Associated Diagnoses: CAD (coronary artery disease), [place] coronary artery; Thrombocytopenia; Coronary artery disease; HTN (hypertension); Hypothyroidism; Aortic insufficiency; RLS (restless legs syndrome); Thoracic ascending aortic aneurysm; Right MCA CVA (cerebral vascular accident) Author: MARIEL ROBLES [place] Basic Information POD#6 [...] in a chair for several hours today. Review of Systems Constitutional: Weakness. Health Status Allergies: Allergies (2) Active Reaction No Known Allergies None Documented No Known Medication Allergies None Documented Physical Examination Intake and Output 24 hour intake: Total 250 ml 24 hour output: Total 1,590 ml VS/Measurements Vital Measurements 11/23/2018 13:00 EDT Heart Rate Monitored 88 bpm Systolic Blood Pressure 96 mmHg Diastolic Blood Pressure 63 mmHg Mean Arterial Pressure (MAP)-BMDI 74 Oxygen Saturation 92 % LOW 11/23/2018 12:00 EDT Temperature, Fahrenheit 97.8 Deg F Clinical Temperature, C 36.6 Deg C Oxygen Therapy Mode Nasal cannula Oxygen Flow Rate 2 Liter/Min General: Alert and oriented, No acute distress. HENT: Normocephalic. Neck: Supple. Respiratory: Respirations are non-labored. Breath sounds: Diminished. Cardiovascular: Normal rate, 88 beats per minute, Regular rhythm, S1, S2, No edema. Integumentary: Warm, Dry, [place], incision is C/D/I. Neurologic: Alert, left sided weakness. Orientation: To person, To place, To time. Psychiatric: Cooperative, Appropriate mood & affect. Review / Management Results review: NOV 23 08:23 136 102 H 26 / 104 4.7 29 0.80 \ NOV 23 08:23 \ L 11.5 / H 13.5 254 / L 35.5 \ Blood Gases (Current [...] restricted diffusion consistent with acute ischemic infarct. -SChristianoT. is working with pt -Pt will need inpatient rehab at the time of discharge- MELLISSA has sent information to [facility] -Transfer to 3 east EF 55-60% per echo 11/16/18 DVT Prophylaxis: SCDs Diagnosis CAD (coronary artery disease), [place] coronary artery - Admitting, Medical. Thrombocytopenia - [...] accident) - Discharge, Medical. Electronically signed by Michele Saini Conversion Electrical And Instrument Engineer Cerner at 12/08/2022 12:36 PM CDT documented in this encounter Plan of Treatment Not on file documented as of this encounter Visit Diagnoses Not on filedocumented in this encounter
--- OUTSIDE RECORDS SUMMARY | 2025-02-23 11:53 | XMS_ITS | Encounter Summary ---
Author Organization [employer] ([place], [place], [place], [place]) Address [address] [place] [address] Care Team Providers Care Tuber Machine Operator Helper Name Role Phone Unavailable Primary Care Provider Unavailabl e Encounter Details Date Type Department Care Team (Late st Contact Info) Description 11/16/2018 Transcribed Document [facility] [place] Family Medicine [address] [place] [address] ProviderErika MD [address] [place] [address] Social History Tobacco Use Types Packs/Day Years Used Date Smoking Tobacco: Never Assessed Sex and Gender Information Value Date Recorded Sex Assigned at Not on file Legal Sex Male 5:03 PM CDT Gender Identity Not on file Sexual Orientation Not on file documented as of this encounter Miscellaneous Notes * Cerner Conversion Note - Erika ProviderMD - 11/16/2018 12:27 PM CDT Evaluation, Physical Therapy Entered On: 11/18/2018 11:59 EDT Performed On: 11/18/2018 9:32 EDT by ROGER LEWIS, PT General Information, PT Visit Type, PT : Initial evaluation Therapy Diagnosis, PT : Decreased strength and functional mobility General Information Comment, PT : Admitted with Ascending Thoracic Aortic Aneurysm, Aortic Insufficiency On 11/16 had Resection and Grafting of Ascending Thoracic Aortic Aneurysm, 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 and Reimplatation of Coronaries, CABGX1 Hx of CAD, HTN, Hypothyroidism ROGER LEWIS, PT - 11/18/2018 16:07 EDT Patient Orders : Order Date Order Ordering 11/16/2018 12:28 Consult to Physical Therapy Ordered By: JULIO CESAR CARVALHO MD-CAT Active Diagnoses : 11/17/2018 00:00 Atherosclerotic heart disease of [place] coronary artery without angina pectoris 11/17/2018 00:00 Essential (primary) hypertension 11/17/2018 00:00 Hypothyroidism, unspecified 11/17/2018 00:00 Nonrheumatic aortic (valve) insufficiency 11/17/2018 00:00 Restless legs syndrome 11/17/2018 00:00 Thoracic aortic aneurysm, without rupture 11/17/2018 00:00 Thrombocytopenia, unspecified 11/16/2018 00:00 Atherosclerotic heart disease of [place] coronary artery without angina pectoris 11/16/2018 00:00 Nonrheumatic aortic (valve) insufficiency 11/16/2018 00:00 Thoracic aortic aneurysm, without rupture Admission Date : 11/16/2018 06:45 Personal Devices : Personal Devices No Devices Recorded Assistive Devices : Assistive Devices No Devices Recorded ROGER LEWIS, PT - 11/18/2018 11:59 EDT General Status Patient Received Status : Supine in bed Treatment Start Time : 11/18/2018 9:17 EDT Patient Left Status : Supine in bed, RN/PCT informed, Communication board completed, All needs met and within reach RN/PCT Informed Comment : OK to see per RN but in bed only today Treatment End Time : 11/18/2018 9:32 EDT Treatment Time : 15 Minute(s) ROGER LEWIS PT - 11/18/2018 16:07 EDT History and Environment Living Situation, Therapy : Home Patient Lives With : Spouse Persons Assisting Patient at Home : Spouse Persons Providing Information : Child/Children Home Equipment Therapy, PT : None Home Setup : One story Stairs : Yes Stair Location(s) : Inside, Outside Inside Stairs, Number of Steps : 1 Stairs Inside Comment : 1 step down into bedroom Outside Stairs, Number of Steps : 2 Railing Outside : No ROGER LEWIS PT - 11/18/2018 16:07 EDT Prior Level of Function PT GRID Prior LOF Ambulation, Household : Independent Prior LOF Ambulation, Community : Independent Prior LOF Bed Mobility : Independent Prior LOF Toileting : Independent Prior LOF Transfer : Independent ROGER LEWIS PT - 11/18/2018 16:07 EDT Intervention Summary BP Systolic Pre-intervention : 137 mmHg BP Diastolic Pre-intervention : 80 mmHg O2 Pre-Intervention : 3 L SpO2 Pre-Intervention : 100 % BP Systolic Post-intervention : 143 mmHg BP Diastolic Post-intervention : 79 mmHg O2 Post-Intervention : 3 L ROGER LEWIS, PT - 11/18/2018 16:07 EDT Upper Extremity Upper Extremity Dominance : Left ROGER LEWIS, PT - 11/18/2018 16:07 EDT Right Upper Extremity Detailed ROM Grid Right Shoulder Flexion Range Right Shoulder Abduction Range Right Elbow Extension Range Passive : 45 45 Lacks 20 ROGER LEWIS, PT - 11/18/2018 16:07 EDT ROGER LEWIS, PT - 11/18/2018 16:07 EDT ROGER LEWIS, PT - 11/18/2018 16:07 EDT Left Upper Extremity Detailed ROM Grid Left Shoulder Flexion Range Left Shoulder Abduction Range Left Elbow Extension Range Passive : 10 10 Lacks 10 ROGER LEWIS, PT - 11/18/2018 16:07 EDT ROGER LEWIS, PT - 11/18/2018 16:07 EDT ROGER LEWIS, PT - 11/18/2018 16:07 EDT Upper Extremity Comment : No movement on command. LUE may have increased tone or tremor. Moves differently than GEORGI ROGER LEWIS, PT - 11/18/2018 16:07 EDT Lower Extremity RLE Passive ROM : WFL LLE Passive ROM : WFL Lower Extremity Comment : No movement on command but resists at times ROGER LEWIS, PT - 11/18/2018 16:07 EDT Gait Training/Assessment, PT Gait Assistance Level : Unable to assess/activity not appropriate Walking Distance : Too weak ROGER LEWIS, PT - 11/18/2018 16:07 EDT Cognition Assessment, PT Cognition Assessment Comment : Hard to understand. Nods head and answers questions but mumbles. OK Lethargic Follows Basic Command Assessment : No ROGER LEWIS, PT - 11/18/2018 16:07 EDT Edu Topics Physical Therapy Education Grid Therapeutic Exercises : Needs further teaching ROGER LEWIS, PT - 11/18/2018 16:07 EDT Indication Assesessment, PT Physical Therapy Indicated : Yes PT Problem List : Impaired, endurance tolerance, Impaired, strength Potential Barriers To Therapy : Acuity of Illness Rehabilitation Potential : Good ROGER LEWIS, PT - 11/18/2018 16:07 EDT Plan of Care, PT PT Tx Plan/Goals Established w Patient : Yes PT Frequency Rehab : Daily PT Duration Rehab : Fourteen days PT Treatments Planned : Balance training, Bed mobility training, Gait training, Therapeutic exercises, Transfer training ROGER LEWIS, PT - 11/18/2018 16:07 EDT Short Term Goals Mobility/Bed Mobility STG PT Grid Goal #1 Activity : Supine to sit Assist : Assist, minimal Date to Meet : 11/25/2018 EDT Goal Status : Initial goal ROGER LEWIS, PT - 11/18/2018 16:07 EDT Transfer STG Grid Goal #1 Destination : Chair, with arms Type : Stand Pivot Sit Assist : Assist, moderate Date to Meet : 11/25/2018 EDT Goal Status : Intial Goal ROGER LEWIS, PT - 11/18/2018 16:07 EDT Alf Goals Mobility/Bed Mobility LTG PT Grid Goal #1 Activity : Sit to stand Assist : Assist, minimal Date to Meet : 12/02/2018 EDT Goal Status : Intial Goal ROGER LEWIS, PT - 11/18/2018 16:07 EDT Transfer LTG Grid Goal #1 Destination : Chair, with arms Type : Stand Pivot Sit Assist : Assist, minimal Date to Meet : 12/02/2018 EDT Goal Status : Intial Goal ROGER LEWIS, PT - 11/18/2018 16:07 EDT Treatment Note Subjective Comment : Mumbled to answer questions and was hard to understand. Patient's Response to Treatment : Not following directions Additional Objective Information : He got PROMX10 with UE's and LE's with facilitation to promote active movement. Assessment : Needs to work on sitting balance EOB and transfers if able with 2 assist. May do better EOB Plan for Treatment : Ex Bed Mobiltiy Sitting Balance Transfers/Gt ROGER LEWIS, PT - 11/18/2018 16:07 EDT Pain Assessment Pain Scaled Used : 0-10 Pain scale Pain Score Pre-Intervention : 0 ROGER LEWIS, PT - 11/18/2018 16:07 EDT Image 1 - Images currently included in the form version of this document have not been included in the text rendition version of the form. Anticipated Discharge Needs, OT/PT Anticipated Discharge to OT : Unit, rehabilitation ROGER LEWIS, PT - 11/18/2018 16:07 EDT [place] PT Charges PT Eval Moderate Complexity : 1 ROGER LEWIS, PT - 11/18/2018 16:07 EDT documented in this encounter Plan of Treatment Not on file documented as of this encounter Visit Diagnoses Not on filedocumented in this encounter
--- OUTSIDE RECORDS SUMMARY | 2025-02-23 11:53 | XMS_ITS | Encounter Summary ---
Author Organization [employer] ([place], [place], [place], [place]) Address [address] [place] [address] Care Team Providers Care Collections Clerk Name Role Phone Unavailable Primary Care Provider Unavailabl e Encounter Details Date Type Department Care Team (Late st Contact Info) Description 12/01/2018 Transcribed Document [facility] [place] Family Medicine [address] [place] [address] ProviderErika MD [address] [place] [address] Social History Tobacco Use Types Packs/Day Years Used Date Smoking Tobacco: Never Assessed Sex and Gender Information Value Date Recorded Sex Assigned at Not on file Legal Sex Male 5:03 PM CDT Gender Identity Not on file Sexual Orientation Not on file documented as of this encounter Miscellaneous Notes * Cerner Conversion Note - Erika Jose MD - 12/01/2018 1:36 PM CDT Nursing Discharge Summary Entered On: 12/01/2018 13:45 EDT Performed On: 12/01/2018 13:36 EDT by NAIN JARRETT detective lieutenant Documentation Discharge Date/Time : 12/01/2018 15:13 EDT NAIN JARRETT RN - 12/01/2018 16:34 EDT Patient Disposition, General : Discharge Discharge To : Rehabilitation unit/facility Name of Receiving Facility/Provider : [facility] Mode Of Departure, General Discharge : Ambulance/BLS Accompanied By, Discharge : Unaccompanied IV Discontinued : Yes Medications Given to Patient : No Personal Belongings With Patient : Yes Pt's Own Supply of Medications Returned : No Prescriptions Given to Patient : No Discharge Instructions Reviewed With, Opportunity For Questions Given : Other: provided written information to patient. Teaching Method : Printed materials Teaching Evaluation : Verbalizes understanding Education Comment : explanation of all nursing procedyres and rationale for given CABG packet and BP information provided to patient and discussed at [place]. Verbalized understanding. Worker's Compensation Paperwork Completed : NAIN Gomez RN - 12/01/2018 13:36 EDT documented in this encounter Plan of Treatment Not on file documented as of this encounter Visit Diagnoses Not on filedocumented in this encounter
--- OUTSIDE RECORDS SUMMARY | 2025-02-23 11:53 | XMS_ITS | Encounter Summary ---
Author Organization [employer] ([place], [place], [place], [place]) Address [address] [place] [address] Care Team Providers Care Wet End Operator Name Role Phone Unavailable Primary Care Provider Unavailabl e Encounter Details Date Type Department Care Team (Late st Contact Info) Description 11/25/2018 Transcribed Document [facility] [place] Family Medicine [address] [place] [address] ProviderErika MD [address] [place], [place] [phone] Social History Tobacco Use Types Packs/Day Years Used Date Smoking Tobacco: Never Assessed Sex and Gender Information Value Date Recorded Sex Assigned at Not on file Legal Sex Male 5:03 PM CDT Gender Identity Not on file Sexual Orientation Not on file documented as of this encounter Miscellaneous Notes * Cerner Conversion Note - Erika Jose MD - 11/25/2018 9:33 AM CDT Patient: DOTTIE VILLASENOR Age: 78 years Sex: Male : 1940 Associated Diagnoses: CAD (coronary artery disease), [place] coronary artery; Thrombocytopenia; Coronary artery disease; HTN (hypertension); Hypothyroidism; Aortic insufficiency; RLS (restless legs syndrome); Thoracic ascending aortic aneurysm; Right MCA CVA (cerebral vascular accident) Author: GISSEL ZHANG [place] Basic Information POD#9 S/P Resection and Grafting of Ascending Thoracic [...] today, no change in left side weakness Review of Systems Constitutional: Weakness. Health Status Allergies: Allergies (2) Active Reaction No Known Allergies None Documented No Known Medication Allergies None Documented Physical Examination Intake and Output 24 hour intake: Total 20 ml 24 hour output: Total 200 ml VS/Measurements Vital Measurements 11/25/2018 9:05 EDT Oxygen Therapy Mode Nasal cannula Oxygen Flow Rate 3 Liter/Min 11/25/2018 8:21 EDT Heart Rate, Apical 86 bpm Oxygen Saturation 96 % 11/25/2018 5:26 EDT Temperature, Fahrenheit 97.3 Deg F Systolic Blood Pressure 110 mmHg Diastolic Blood Pressure 70 mmHg General: Alert and oriented, No acute distress. Respiratory: Respirations are non-labored. Breath sounds: Diminished. Cardiovascular: Normal rate, 82 beats per minute, Regular rhythm, S1, S2, left upper extremity swelling. Integumentary: Warm, Dry, [place], incision is C/D/I. Neurologic: Alert, left sided paralysis. Orientation: To person, To place, To time. Psychiatric: Cooperative, Appropriate mood & affect. Review / Management Results review: NOV 25 03:57 136 102 H 29 / 97 4.5 27 0.80 \ NOV 25 03:57 \ L 11.0 / H 11.1 284 / L 33.4 \ Blood Gases (Current Encounter/Past 24 Hours) [...] of discharge- CM has sent information to [facility] -Transfer to [facility] 11/24/18 -POD#8 -Awaiting transfer to [facility] -Awaiting response from [facility] 11/25/18 -left upper extremity venous doppler - doppler this am positive for LUE DVT - will start coumadin and heparin bridge -awaiting [facility] EF 55-60% per echo 11/16/18 DVT Prophylaxis: SCDs Diagnosis CAD (coronary artery disease), [place] coronary artery - Admitting, Medical. Thrombocytopenia - [...] accident) - Discharge, Medical. Electronically signed by Christina Saini Conversion Statistical Programmer Analyst Cerner at 12/08/2022 12:35 PM CDT documented in this encounter Plan of Treatment Not on file documented as of this encounter Visit Diagnoses Not on filedocumented in this encounter
--- OUTSIDE RECORDS SUMMARY | 2025-02-23 11:53 | XMS_ITS | Referral Summary ---
Author Organization [employer] ([place], [place], [place], [place]) Address [address] [place] [address] Care Team Providers Care Lead Developer Name Role Phone Unavailable Primary Care [...]
--- OUTSIDE RECORDS SUMMARY | 2025-02-23 11:53 | XMS_ITS | Encounter Summary ---
Author Organization [employer] ([place], [place], [place], [place]) Address [address] [place] [address] Care Team Providers Care Piper Installer Name Role Phone Unavailable Primary Care Provider Unavailabl e Encounter Details Date Type Department Care Team (Late st Contact Info) Description 11/23/2018 Transcribed Document [facility] [place] Family Medicine [address] [place] [address] ProviderErika MD [address] [place] [address] Social History Tobacco Use Types Packs/Day Years Used Date Smoking Tobacco: Never Assessed Sex and Gender Information Value Date Recorded Sex Assigned at Not on file Legal Sex Male 5:03 PM CDT Gender Identity Not on file Sexual Orientation Not on file documented as of this encounter Miscellaneous Notes * Cerner Conversion Note - Erika Jose MD - 11/23/2018 3:05 PM CDT Patient: JORGE VILLASENOR Age: 78 Years Sex: Male : 1940 Subjective Patient's daughter is in room and tells me patient is still weak on left side. Review of Systems GI - patient has NG tube in place. Objective Vitals & Measurements T: 36.6 ??C TMIN: 36.3 ??C TMAX: 37.2 ??C HR: 88(Monitored) RR: 7 BP: 96/63 SpO2: 92% Physical Exam EOMI Motor - 0/5 in left arm 1-2/5 in left leg. TESTS Cholesterol - 129 LDL - 62 Cranial MRI - a) Acute infarcts in the right frontal and parietal cortex. b) Patchy area of acute infarction in the area of the left frontal lobe. I have reviewed this film and the largest areas of infarctions are in the right frontal and right parietal cortex. Assessment/Plan 78 year old male who underwent [...] cause of the strokes. Recommend : a) Agree with aspirin a day. b) I have initiated stroke order sets. c) If he developed atrial fibrillation, consideration would need to be given to anticoagulation. d) I agree with SCDs that have been ordered. e) NPO until cleared by Speech. f) At discharge he should follow up with an outpatient neurologist and not drive until released by a physician. Medications Inpatient acetaminophen, 325 mg= 1 Tab, Oral, Q4H, PRN albuterol CFC free 90 mcg/inh inhalation [...] regular sliding scale, Scale A, SubCutaneous, Q6H levothyroxine, 50 mcg= 1 Tab, Oral, Daily [...] Tab, Oral, At Bedtime saliva substitutes, 1 [place], Buccal, Q2H, PRN Senokot, 17.2 mg= 2 Tab, Oral, BID Zofran, 4 mg= 2 mL, IV Push, Q4H, PRN Electronically signed by Praveen, [facility] Conversion Front Desk Team Member Cerner at 12/08/2022 12:26 PM CDT documented in this encounter Plan of Treatment Not on file documented as of this encounter Visit Diagnoses Not on filedocumented in this encounter
--- OUTSIDE RECORDS SUMMARY | 2025-02-23 11:53 | XMS_ITS | Encounter Summary ---
Author Organization [employer] ([place], [place], [place], [place]) Address [address] [place] [address] Care Team Providers Care Bootmaker Name Role Phone Unavailable Primary Care Provider Unavailabl e Encounter Details Date Type Department Care Team (Late st Contact Info) Description 12/01/2018 Transcribed Document [facility] [place] [address] [place] [address] ProviderErika MD [address] [place], [place] [id number] Social History Tobacco Use Types Packs/Day Years Used Date Smoking Tobacco: Never Assessed Sex and Gender Information Value Date Recorded Sex Assigned at Not on file Legal Sex Male 5:03 PM CDT Gender Identity Not on file Sexual Orientation Not on file documented as of this encounter Miscellaneous Notes * Cerner Conversion Note - Erika Jose MD - 12/01/2018 10:02 AM CDT Patient: DOTTIE VILLASENOR Age: 78 years Sex: Male : 1940 Associated Diagnoses: CAD (coronary artery disease), [place] coronary artery; Thrombocytopenia; Coronary artery disease; HTN (hypertension); Hypothyroidism; Aortic insufficiency; RLS (restless legs syndrome); Thoracic ascending aortic aneurysm; Right MCA CVA (cerebral vascular accident); Acute blood loss anemia; LUE DVT (deep venous thrombosis); GI bleed Author: GISSEL ZHANG PA Basic Information POD#15 S/P Resection and Grafting of Ascending Thoracic [...] complaints. 11/30/18: No complaints, transferred back to [facility] yesterday 12/01/18: Up to chair today, hopefully to [facility] today Review of Systems Constitutional: Weakness. Respiratory: No shortness of breath. Cardiovascular: No chest pain. Neurologic: left side paralysis. Health Status Allergies: Allergic Reactions (Selected) No Known Allergies No Known Medication Allergies, Allergies (2) Active Reaction No Known Allergies None Documented No Known Medication Allergies None Documented Physical Examination Intake and Output Is and Os not accurate VS/Measurements Vital Measurements 12/01/2018 6:00 EDT Temperature, Fahrenheit 97.8 Deg F Heart Rate Monitored 93 bpm Systolic Blood Pressure 119 mmHg Diastolic Blood Pressure 66 mmHg Oxygen Saturation 95 % Oxygen Therapy Mode Room air General: Alert and oriented, No acute distress, Alert and talking appropriatly, he doesn't remember events clearly. HENT: Normocephalic. Neck: Supple. Respiratory: Lungs are clear to auscultation, Respirations are non-labored, Breath sounds are equal. Cardiovascular: 107 beats per minute, Regular rhythm, S1, S2, Tachycardia, No edema. Gastrointestinal: Soft, Non-tender, Non-distended, Normal bowel sounds. Musculoskeletal: left arm swelling. Integumentary: Warm, Dry, [place], incision is C/D/I. Neurologic: Alert, left sided paralysis. Psychiatric: Cooperative, Appropriate mood & affect. Review / Management Results review: DEC 01 05:53 136 104 H 24 / 98 3.7 25 0.80 \ DEC 01 05:53 \ L 9.2 / H 10.8 315 / L 27.8 \ Blood Gases (Current Encounter/Past 24 Hours) No Blood Gas Results Found (Past 24 Hours) Coagulation Results (Current Encounter/Past 24 Hours) PT 14.6 Second(s) [facility] 12/01/2018 06:53 INR 1.4 [facility] 12/01/2018 06:53 . Impression and Plan Plan: 11/17/18 -POD#1 [...] time of discharge- has sent information to [facility] -Transfer to [facility] 11/24/18 -POD#8 -Awaiting transfer to [facility] -Awaiting response from [facility] 11/25/18 -POD#9 -left upper extremity venous doppler - doppler this am positive for LUE DVT - will start coumadin and heparin bridge -awaiting [facility] 11/26/18 -POD#10 -Heparin drip and coumadin for LUE DVT -Left arm swelling improved today -INR 1.1 today, INR goal 2-3 -Possibly transfer to [facility] this weekend 11/27/18: -POD#11 -Left arm swelling continues to improve -Continues on Coumadin and heparin bridge -INR: 1.4 (1.1 yesterday) goal: 2 to 3 -[facility] soon,? Tomorrow 11/28/18: -POD#12 -BP [...] blood has been set up. -Transferred to [facility] 11/29/18: -POD#13 -Upper endoscopy showed duodenal ulceration [...] D/C due to GI bleed. -Transfer to [facility] 11/30/18 POD # 14 EGD yesterday - duodenal ulceration with clot, no active bleeding and no intervention performed INR trending down, off coumadin and heparin Speech signed off yesterday - speech and cognition back to baseline Watch INR and [facility] upon discharge 12/01/18 POD # 15 Bed available at [facility] today\.brTH stable, INR 1.4 EF 55-60% per echo 11/16/18 DVT Prophylaxis: SCDs Diagnosis CAD (coronary artery disease), [place] coronary artery - Admitting, Medical. Thrombocytopenia - [...] bleed - Discharge, Medical. Electronically signed by Parveen [facility] Conversion Utility Driver Cerner at 12/08/2022 12:20 PM CDT documented in this encounter Plan of Treatment Not on file documented as of this encounter Visit Diagnoses Not on filedocumented in this encounter
--- OUTSIDE RECORDS SUMMARY | 2025-02-23 11:53 | XMS_ITS | Encounter Summary ---
Author Organization [employer] ([place], [place], [place], [place]) Address [address] [place] [address] Care Team Providers Care Wood Barrel Reconditioner Name Role Phone Unavailable Primary Care Provider Unavailabl e Encounter Details Date Type Department Care Team (Late st Contact Info) Description 11/18/2018 Transcribed Document [facility] [place] Family Medicine [address] [place] [address] ProviderErika MD [address] [place] [address] Social History Tobacco Use Types Packs/Day Years Used Date Smoking Tobacco: Never Assessed Sex and Gender Information Value Date Recorded Sex Assigned at Not on file Legal Sex Male 5:03 PM CDT Gender Identity Not on file Sexual Orientation Not on file documented as of this encounter Miscellaneous Notes * Cerner Conversion Note - Erika ProviderMD - 11/18/2018 10:32 AM CDT Spiritual Care Assessment Entered On: 11/18/2018 10:54 EDT Performed On: 11/18/2018 10:32 EDT by MARCOS GASCA General Information Initial Visit : Yes Referred by : Poly Packer And Heat Sealer initiated Referral Reason Comment : Post-op visit Ministry Provided to : Patient, Family/Significant other Holiness Preference : [employer] MARCOS GASCA P - 11/18/2018 10:51 EDT Spiritual Assessment Patient's Community/Relationship : Strength in patient's life Supportive/Healthy Relationships : Yes Spiritual Assessment Comment/Summary Points : Patient off vent, opens eyes but groggy. Nodded affirmatively to offer for prayer. A daughter arrived and confirmed patient open to prayer and making slow progress. She and family are alternating visiting. Spirital Assessment Comment/Summary Report : SPIRITUAL ASSESSMENT COMMENT/SUMMARY No qualifying data available. MARCOS GASCA - 11/18/2018 10:51 EDT Interventions Emotional Support : Empathic/Engaged listening, Family/Significant other supported, Relationship strengths identified Spiritual and Holiness : Prayer shared, Spiritual/Holiness support provided MARCOS GASCA P - 11/18/2018 10:51 EDT Electronically signed by Parveen, [facility] Conversion Pamphlet Distributor Cerner at 12/08/2022 12:34 PM CDT documented in this encounter Plan of Treatment Not on file documented as of this encounter Visit Diagnoses Not on filedocumented in this encounter
--- OUTSIDE RECORDS SUMMARY | 2025-02-23 11:53 | XMS_ITS | Encounter Summary ---
Author Organization [employer] ([place], [place], [place], [place]) Address [address] [place] [address] Care Team Providers Care Banking Center Manager Name Role Phone Unavailable Primary Care Provider Unavailabl e Encounter Details Date Type Department Care Team (Late st Contact Info) Description 11/18/2018 Transcribed Document [facility] [place] Family Medicine [address] [place] [address] ProviderErika MD [address] [place], [place] [phone] Social History Tobacco Use Types Packs/Day Years Used Date Smoking Tobacco: Never Assessed Sex and Gender Information Value Date Recorded Sex Assigned at Not on file Legal Sex Male 5:03 PM CDT Gender Identity Not on file Sexual Orientation Not on file documented as of this encounter Miscellaneous Notes * Cerner Conversion Note - Erika Jose MD - 11/18/2018 3:08 PM CDT Patient: DOTTIE VILLASENOR Age: 78 years Sex: Male : 1940 Associated Diagnoses: CAD (coronary artery disease), [place] coronary artery; Thrombocytopenia; Coronary artery disease; HTN (hypertension); Hypothyroidism; Aortic insufficiency; RLS (restless legs syndrome); Thoracic ascending aortic aneurysm Author: MARIEL ROBLES PA Basic Information POD#2 S/P Resection and Grafting of Ascending Thoracic [...] that he was speaking mroe to her. Review of Systems Constitutional: Weakness. Health Status Allergies: Allergies (2) Active Reaction No Known Allergies None Documented No Known Medication Allergies None Documented Current medications: Ntg 90mcg/min Insulin Physical Examination Intake and Output 24 hour intake: Total 1146 ml 24 hour output: Urinary catheter 910 ml, Total 1280 ml MT 140ml / 12 hours (370/24hr) VS/Measurements Vital Measurements 11/18/2018 14:00 EDT Temperature, Celsius 37.5 Deg C Clinical Temperature, F 99.5 Deg F Heart Rate Monitored 89 bpm Systolic Blood Pressure 106 mmHg Diastolic Blood Pressure 68 mmHg Mean Arterial Pressure (MAP)-BMDI 82 Systolic BP, Arterial Line 1 145 mmHg HI Diastolic BP, Arterial Line 1 62 mmHg Mean Arterial Pressure, Line 1 85 mmHg Oxygen Saturation 100 % Oxygen Therapy Mode Nasal cannula Oxygen Flow Rate 3 Liter/Min General: No acute distress, Alert. HENT: Normocephalic. Neck: Supple. Respiratory: Respirations are non-labored. Breath sounds: Diminished. Cardiovascular: Normal rate, 89 beats per minute, Regular rhythm, S1, S2, No edema. Integumentary: Warm, Dry, [place], incision is C/D/I. Neurologic: Alert, he did slightly move bilateral toes. Psychiatric: Cooperative. Review / Management Results review: NOV 18 03:37 138 106 19 / H 200 3.8 27 0.90 \ NOV 18 03:37 \ L 10.2 / H 17.7 L 103 / L 30.3 \ Blood Gases (Current Encounter/Past 24 Hours) No Blood Gas Results Found (Past 24 Hours) Coagulation Results (Current Encounter/Past 24 Hours) No Coagulation Results Found (Past 24 Hours) . Impression and Plan Plan: 11/17/18 -POD#1 -MTs left in place secondary to drainage 11/18/18 -POD#2 -MTs D/C without any immediate complications and the pt tolerated well -PWs left in place EF 55-60% per echo 11/16/18 DVT Prophylaxis: SCDs Diagnosis CAD (coronary artery disease), [place] coronary artery - Admitting, Medical. Thrombocytopenia - Working, Medical. Coronary artery disease - Discharge, Medical. HTN (hypertension) - Pre-Op Diagnosis, Medical. Hypothyroidism - Pre-Op Diagnosis, Medical. Aortic insufficiency - Admitting, Medical. Aortic insufficiency - Discharge, Medical. RLS (restless legs syndrome) - Pre-Op Diagnosis, Medical. Thoracic ascending aortic aneurysm - Admitting, Medical. Thoracic ascending aortic aneurysm - Discharge, Medical. Electronically signed by Parveen, [facility] Conversion Automatic Beading Lathe Operator Cerner at 12/08/2022 12:19 PM CDT documented in this encounter Plan of Treatment Not on file documented as of this encounter Visit Diagnoses Not on filedocumented in this encounter
--- OUTSIDE RECORDS SUMMARY | 2025-02-23 11:53 | XMS_ITS | Encounter Summary ---
Author Organization [employer] ([place], [place], [place], [place]) Address [address] [place] [address] Care Team Providers Care Vp Marketing Services And Skin Name Role Phone Unavailable Primary Care Provider Unavailabl e Encounter Details Date Type Department Care Team (Late st Contact Info) Description 11/25/2018 Transcribed Document [facility] [place] [address] [place] [address] ProviderErika MD [address] [place] [address] Social History Tobacco Use Types Packs/Day Years Used Date Smoking Tobacco: Never Assessed Sex and Gender Information Value Date Recorded Sex Assigned at Not on file Legal Sex Male 5:03 PM CDT Gender Identity Not on file Sexual Orientation Not on file documented as of this encounter Miscellaneous Notes * Cerner Conversion Note - Historical ProviderMD - 11/25/2018 2:16 PM CDT Attempt to Treat, OT Entered On: 11/25/2018 15:07 EDT Performed On: 11/25/2018 14:16 EDT by DAKOTA VELAZQUEZ OTR/Ginny Attempt to Treat Unable to Treat Due To : Patient Unavailable Inability to Treat Comment : Pt being placed on bed balderrama. OT will follow up as schedule permits. Notification : TONJA Bowers SHEENAGH E OTR/L - 11/25/2018 15:07 EDT documented in this encounter Plan of Treatment Not on file documented as of this encounter Visit Diagnoses Not on filedocumented in this encounter
--- OUTSIDE RECORDS SUMMARY | 2025-02-23 11:53 | XMS_ITS | Encounter Summary ---
Author Organization [employer] ([place], [place], [place], [place]) Address [address] [place] [address] Care Team Providers Care Substation Supervisor Name Role Phone Unavailable Primary Care Provider Unavailabl e Encounter Details Date Type Department Care Team (Late st Contact Info) Description 11/16/2018 Transcribed Document [facility] [place] [address] [place] [address] ProviderErika MD [address] [place] [address] Social History Tobacco Use Types [...] Performed On: 11/16/2018 12:27 EDT by Lorin Pratt, [facility] Phone Call for Consults Consult Phone Call/Page Attempt : Other: Valve: no call Lorin Pratt [facility] - 11/16/2018 13:34 EDT documented in this encounter Plan of Treatment Not on file documented as of this encounter Visit Diagnoses Not on filedocumented in this encounter
--- OUTSIDE RECORDS SUMMARY | 2025-02-23 11:53 | XMS_ITS | Encounter Summary ---
Author Organization [employer] [facility] ([place], [place], [place], [place]) Address [address] [place] [address] Care Team Providers Care Composer Teaching Artist Name Role Phone Unavailable Primary Care Provider Unavailabl e Encounter Details Date Type Department Care Team (Late st Contact Info) Description 11/28/2018 Transcribed Document [facility] [place] [address] [place] [address] ProviderErika MD [address] [place] [address] Social History Tobacco Use Types Packs/Day Years Used Date Smoking Tobacco: Never Assessed Sex and Gender Information Value Date Recorded Sex Assigned at Not on file Legal Sex Male 5:03 PM CDT Gender Identity Not on file Sexual Orientation Not on file documented as of this encounter Miscellaneous Notes * Cerner Conversion Note - Erika ProviderMD - 11/28/2018 10:19 AM CDT [facility] Main OR IntraOp Summary Primary Physician: SAMAN BERNSTEIN MD-GAE Finalized Date/Time: 11/30/18 09:14:16 Pt. Name: DOTTIE VILLASENOR D.O.B./Sex: 1940 Male Med Rec #: [id number] Physician: JULIO CESAR CARVALHO MD-[facility] Financial #: [id number] Pt. Type: I Room/Bed: [facility]/1 Admit/Disch: 11/16/18 06:45:00 - Institution: [facility] IntraOp Case Attendance Entry 1 Entry 2 Entry 3 Case Attendee SAMAN BERNSTEIN MD-SALMA GARCIA MD WURTELE, JOHN L. Role Performed Surgeon/Proceduralist, Anesthesiologist Certified Welding Inspector, Ancillary First Time In 11/28/18 10:10:00 11/28/18 10:10:00 11/28/18 10:10:00 Time Out 11/28/18 10:35:00 11/28/18 10:35:00 11/28/18 10:35:00 Procedure Esophagogastroduodenosco Esophagogastroduodenosco Esophagogastroduodenosco py py py Other Attendee Superficial Wound Closed By: Last Modified By: Sukumar Casanova, Sukumar Gibbs, Sukumar Gibbs RN 11/28/18 11:00:07 11/28/18 11:00:07 11/28/18 11:00:07 Entry 4 Entry 5 Case Attendee Dianne Garcia, Sukumar Gibbs, TONJA Role Performed Dowel Machine Operator, First Dowel Machine Operator, Second Time In 11/28/18 10:10:00 11/28/18 10:10:00 Time Out 11/28/18 10:35:00 11/28/18 10:35:00 Procedure Esophagogastroduodenosco Esophagogastroduodenosco py py Other Attendee Superficial Wound Closed By: Last Modified By: Sukumar Casanova, Sukumar Gibbs RN 11/28/18 11:00:07 11/28/18 11:00:07 [facility] IntraOp Case Attendance Audit 11/28/18 11:00:07 Drum Sander Offbearer: ANDRADES Modifier: PANTANOS 1 <+> Time Out 1 <*> Procedure Esophagogastroduodenoscopy 2 <+> Time Out 2 <*> Procedure Esophagogastroduodenoscopy 3 <+> Time Out 3 <*> Procedure Esophagogastroduodenoscopy 4 <+> Time Out 4 <*> Procedure Esophagogastroduodenoscopy 5 <+> Time Out 5 <*> Procedure Esophagogastroduodenoscopy 11/28/18 10:20:36 Drum Sander Offbearer: FABIANAANOS Modifier: PANTANOS <+> 1 Procedure 2 <+> Time In 2 <*> Procedure Esophagogastroduodenoscopy 3 <+> Time In 3 <*> Procedure Esophagogastroduodenoscopy 4 <+> Time In 4 <*> Procedure Esophagogastroduodenoscopy 5 <+> Time In 5 <*> Procedure Esophagogastroduodenoscopy [facility] IntraOp Case Times Entry 1 Patient In Room Time 11/28/18 10:10:00 Out Room Time 11/28/18 10:35:00 Anesthesia Start Time 11/28/18 10:10:00 Stop Time 11/28/18 10:35:00 Surgery / Procedure Times Start Time 11/28/18 10:19:00 Stop Time 11/28/18 10:33:00 Last Modified By: Sukumar Casanova RN 11/28/18 10:59:40 [facility] IntraOp Case Times Audit 11/28/18 10:59:40 Drum Sander Offbearer: PANTANOS Modifier: PANTANOS <+> 1 Out Room Time <+> 1 Stop Time <+> 1 Stop Time 11/28/18 10:22:00 Drum Sander Offbearer: PANTANOS Modifier: PANTANOS <+> 1 Start Time [facility] IntraOp Departure from OR Entry 1 Integumentary Assessment Transfer/Handoff Transfer to PACU Phase I Handoff Method Bedside/Face to face, Online nursing summary Post-op Transport Stretcher/Gurney Via Patient Transport Sukumar Casanova RN, Accompanied by SALMA MARROQUIN MD Last Modified By: Sukumar Casanova RN 11/28/18 10:25:50 [facility] IntraOp Departure from OR Audit 11/28/18 10:25:50 Drum Sander Offbearer: FABIANAANOS Modifier: PANTANOS 1 <*> Patient Transport Accompanied by Sukumar Casanova RN [facility] IntraOp Fire Risk Assessment Entry 1 Fire Info Surgical Site or 1- Yes Incision Above the Xyphoid Open O2 Source 0- No (Mask or Cannula) Available Ignition 0- No (ESU, Laser, Light Source) Fire Risk 1 Assessment Score Fire Score Fire Risk Yes Assessment Complete Fire Risk Sukumar Casanova RN Assessment Verified By Fire Risk 11/28/18 10:15:00 Assessment Verified Date/Time Fire Risk Standard Fire Yes Safety Precautions Followed Last Modified By: Sukumar Casanova RN 11/28/18 10:15:58 [facility] IntraOp General Case Elastic Tape Inserter 1 Case Information OR OR [facility] Case Level 1 Room Verified Yes Wound Class II - Clean-Contaminated Specialty SN Gastroenterology Anesthesia Type General ASA Class 4E Diagnosis Preop Diagnosis GASTRIC BLEED Postop Same As Preop Yes Postop Diagnosis GASTRIC BLEED Last Modified By: Sukumar Casanova RN 11/28/18 10:18:38 [facility] IntraOp General Case Data Audit 11/28/18 10:18:38 Drum Sander Offbearer: WILL Modifier: PANTANOS <+> 1 Postop Same As Preop <+> 1 Preop Diagnosis <+> 1 Postop Diagnosis [facility] IntraOp Intraoperative Assessment Entry 1 Handoff Method Bedside/Face to face, Online nursing summary Valid History / Yes Physical in Chart Preoperative Yes Checklist Reviewed/Evaluated Allergies Reviewed Yes Patient is Latex No Sensitive Level of WDL Consciousness (WDL = Alert, Oriented to Person, Place, and Time) Skin Assessment No Verified Present Upon IVs Arrival to OR Last Modified By: Sukumar Casanova RN 11/28/18 10:21:06 [facility] IntraOp Intraoperative Equipment Entry 1 Type Monitoring Equipment Intraop Monitoring Electrocardiogram Three lead placement (ECG) Electrode Placement Blood Pressure Non-Invasive BP Device Source Blood Pressure Arm, right upper Location Pulse Oximeter Hand, left Probe Site Antiembolic Devices Scopes Photo/Video Documentation Last Modified By: Sukumar Casanova RN 11/28/18 10:21:34 [facility] IntraOp Patient Positioning Entry 1 Procedure Esophagogastroduodenosco py Body Position Supine Left Arm Position Tucked and padded at side Right Arm Position Tucked and padded at side Left Leg Position Uncrossed, parallel Right Leg Position Uncrossed, parallel Feet Uncrossed Yes Pressure Points Yes Checked Positioning Devices Roll, Hip, Pillows, Safety Strap, Thighs Positioned By SAMAN BERNSTEIN MD-TAO, SALMA MARROQUIN MD, Dianne Garcia, TONJA Position Verified Positioning Yes Verified by Anesthesia Positioning Yes Verified by Surgeon Last Modified By: Sukumar Casanova RN 11/28/18 10:20:33 [facility] IntraOp Sign In Entry 1 Patient, Site, Yes Procedure Identified Surgical Consent Yes Confirmed Relevant Surgical Yes Documents Available Surgical Site N/A Marked by person performing procedure Anesthesia Machine Yes Check Completed Medication Checks Yes Completed Allergies No Airway Difficult Yes Airway/Aspiration Risk Difficult Yes Airway/Aspiration Intervention Equipment Available Blood Loss Risk No Blood Loss Yes Intervention Equipment Prepared and Ready Blood Identifiers Not applicable Verified Per Policy Hypothermia Risk No Warming Measures Yes Taken Last Modified By: Sukumar Casanova RN 11/28/18 10:22:31 [facility] IntraOp Sign Out Entry 1 RN Confirmation Surgical Yes Procedure(s) Identified Instrument, Sponge N/A and Sharps Counts Correct/Documented Equipment Problems N/A Documented Specimen Labeled N/A Correctly Urinary Catheter N/A Documented in IView Flores Patient Yes Recovery Concerns Reviewed with Anesthesia Provider, Surgeon and RN Flores Patient Yes Management Concerns Reviewed with Anesthesia Provider, Surgeon and RN Safety Checklist Yes Elements Complete? RN Sign Out Sukumar Casanova RN Signature RN Sign Out 11/28/18 10:59:00 Signature Date/Time Plan of Care Outcome - [...] related to extraneous objects Last Modified By: Sukumra Casanova RN 11/28/18 11:00:01 [facility] IntraOp Sign Out Audit 11/28/18 11:00:01 Drum Sander Offbearer: WILL Modifier: WILL <+> 1 RN Sign Out Signature Date/Time [facility] IntraOp Surgical Procedures Entry 1 Procedure Esophagogastroduodenosco py Additional (EGD WITH CONTROL OF Procedure BLEEDING) Description Primary Procedure Yes Primary Surgeon SAMAN BERNSTEIN MD-TAO Start 11/28/18 10:19:00 Stop 11/28/18 10:33:00 Anesthesia Type General Specialty SN Gastroenterology Wound Class II - Clean-Contaminated Last Modified By: Sukumar Casanova RN 11/28/18 10:59:52 [facility] IntraOp Surgical Procedures Audit 11/28/18 10:59:52 Drum Sander Offbearer: WILL Modifier: WILL 1 <*> Procedure Esophagogastroduodenoscopy 1 <+> Specialty 11/28/18 10:59:43 Drum Sander Offbearer: WILL Modifier: WILL <+> 1 Start <+> 1 Stop [facility] IntraOp Temp Regulation Devices Entry 1 Temp Regulation Temperature Warm blankets Regulation Device Temperature Full body Regulation Site Last Modified By: Sukumar Casanova RN 11/28/18 10:26:13 [facility] IntraOP Time Out Entry 1 Procedure to be Esophagogastroduodenosco Performed py Time Out Time Out Pause Time 11/28/18 10:18:00 All activity Yes suspended (unless life threatening emergency) Team Verbally Correct patient Confirms Information identity, Correct side and site are marked, Consent form is present and accurate, Agreement on the procedure to be done, Correct patient position, Relevant images/results properly labeled/appropriately displayed, Confirm antibiotics have been administered, Confirm the skin prep has dried, Confirm prosthesis/implant/devic e is present, Performed in location of procedure after prepped/draped Antibiotic N/A Prophylaxis Administered Or In Progress Within the Last 60 Minutes Beta Rachael N/A Administered Venous N/A Thromboembolism Prophylaxis Required Anticipated Critical Events Surgeon None expected, Critical or unexpected steps, Anticipated blood loss, Special equipment need Anesthesia Provider Patient specific concerns, None expected Nursing Assures Sterility of instruments, Equipment concerns or issues, Implant Availability Essential Imaging Yes Labeled and Displayed Last Modified By: Sukumar Casanova RN 11/28/18 10:21:53 [facility] IntraOP Time Out Audit 11/28/18 10:21:53 Drum Sander Offbearer: WILL Modifier: WILL 1 <+> Time Out Pause Time 1 <*> Procedure to be Performed Esophagogastroduodenoscopy Case Comments <None> Finalized By: JODI PITT Document Signatures Signed By: Sukumar Casanova RN 11/28/18 11:00 JODI PITT 11/30/18 09:14 Unfinalized History Date/Time Username Reason for Unfinalizing Freetext Reason for Unfinalizing 11/30/18 09:13 [email or web address] Correct Billing Electronically signed by Parveen [facility] Conversion Strategic Account Director Cerner at 12/08/2022 12:19 PM CDT documented in this encounter Plan of Treatment Not on file documented as of this encounter Visit Diagnoses Not on filedocumented in this encounter
--- OUTSIDE RECORDS SUMMARY | 2025-02-23 11:53 | XMS_ITS | Encounter Summary ---
Author Organization [employer] ([place], [place], [place], [place]) Address [address] [place] [address] Care Team Providers Care [place] Pilot Name Role Phone Unavailable Primary Care Provider Unavailabl e Encounter Details Date Type Department Care Team (Late st Contact Info) Description 11/28/2018 Transcribed Document [facility] [place] Family Medicine [address] [place] [address] ProviderErika MD [address] [place] [address] Social History Tobacco Use Types Packs/Day Years Used Date Smoking Tobacco: Never Assessed Sex and Gender Information Value Date Recorded Sex Assigned at Not on file Legal Sex Male 5:03 PM CDT Gender Identity Not on file Sexual Orientation Not on file documented as of this encounter Miscellaneous Notes * Cerner Conversion Note - Historical ProviderMD - 11/28/2018 5:00 AM CDT Chart Check - Review Order Profile Entered On: 11/28/2018 5:01 EDT Performed On: 11/28/2018 5:00 EDT by Robyn Benitez, RN Chart Check Chart Reviewed Date and Time : 11/28/2018 5:00 EDT All Active Orders Reviewed : Yes Robyn Benitez, RN - 11/28/2018 5:01 EDT Electronically signed by Christina Saini Conversion Licensed Physical Therapist Felipe at 12/08/2022 12:19 PM CDT documented in this encounter Plan of Treatment Not on file documented as of this encounter Visit Diagnoses Not on filedocumented in this encounter
--- OUTSIDE RECORDS SUMMARY | 2025-02-23 11:53 | XMS_ITS | Encounter Summary ---
Author Organization [employer] ([place], [place], [place], [place]) Address [address] [place] [address] Care Team Providers Care Physician/Ophthalmologist Name Role Phone Unavailable Primary Care Provider Unavailabl e Encounter Details Date Type Department Care Team (Late st Contact Info) Description 11/24/2018 Transcribed Document [facility] [place] [address] [place] [address] ProviderErika MD [address] [place] [address] Social History Tobacco Use Types Packs/Day Years Used Date Smoking Tobacco: Never Assessed Sex and Gender Information Value Date Recorded Sex Assigned at Not on file Legal Sex Male 5:03 PM CDT Gender Identity Not on file Sexual Orientation Not on file documented as of this encounter Miscellaneous Notes * Cerner Conversion Note - Erika ProviderMD - 11/24/2018 5:00 PM CDT Chart Check - Review Order Profile Entered On: 11/24/2018 16:47 EDT Performed On: 11/24/2018 17:00 EDT by Lizz Pedro Rn Chart Check Chart Reviewed Date and Time : 11/24/2018 16:47 EDT [employer] Initiated/Discontinued as Appropriate : Yes All Active Orders Reviewed : Yes Lizz Pedro Rn - 11/24/2018 16:47 EDT documented in this encounter Plan of Treatment Not on file documented as of this encounter Visit Diagnoses Not on filedocumented in this encounter
--- OUTSIDE RECORDS SUMMARY | 2025-02-23 11:53 | XMS_ITS | Encounter Summary ---
Author Organization [employer] ([place], [place], [place], [place]) Address [address] [place] [address] Care Team Providers Care Cosmetics Counter Manager Name Role Phone Unavailable Primary Care Provider Unavailabl e Encounter Details Date Type Department Care Team (Late st Contact Info) Description 12/01/2018 Transcribed Document [facility] [place] Family Medicine [address] [place] [address] ProviderErika MD [address] [place] [address] Social History Tobacco Use Types Packs/Day Years Used Date Smoking Tobacco: Never Assessed Sex and Gender Information Value Date Recorded Sex Assigned at Not on file Legal Sex Male 5:03 PM CDT Gender Identity Not on file Sexual Orientation Not on file documented as of this encounter Miscellaneous Notes * Cerner Conversion Note - Erika Jose MD - 12/01/2018 3:[address] [facility] [address] VILLASENOR DOTTIE Pickering :1940 Visit Time:11/16/2018 Your Visit Summary Your Care Team Admitting Physician - JULIO CESAR CARVALHO MD-CAT Attending Physician - JULIO CESAR CARVALHO MD-YADIRA Primary Care Physician - DEMETRICE ARMIJO NP-FAM Referring Physician - DEMETRICE ARMIJO NP-FAM Your Diagnosis Acute blood loss anemia Aortic insufficiency, Aortic insufficiency CAD (coronary artery disease), [place] coronary artery, Coronary artery disease GI bleed HTN (hypertension) Hypothyroidism LUE DVT (deep venous thrombosis) Right MCA CVA (cerebral vascular accident) RLS (restless legs syndrome) Thoracic aortic aneurysm, ruptured, Thoracic aortic aneurysm, ruptured Thoracic ascending aortic aneurysm, Thoracic ascending aortic aneurysm Thrombocytopenia Discharge Vitals Temperature 36.5 ??C Heart Rate 103 Respiratory Rate 16 Blood Pressure 108/62 What to do next Instructions From Your Care Team [facility]-Stroke Unit RN report #[phone] DC Summary #[phone] You may shower. Make sure your back [...] IF you have a fever greater than [address], call the surgeon. DO NOT drive for [...] Where: [address] [place] [address]- Business (1) Follow Up with JULIO CESAR CARVALHO When 12/15/2018 12:15 PM EDT Where: [address] [place] [address] Business (1) Follow Up with DEMETRICE ARMIJO When Within 1 week Comments When you are discharged from [facility] please call to make a 1 week hospital follow-up appointment. Where: [address] [place] [address]- Follow Up with JOHN BOWEN When Within 6 weeks Comments Patient should call for a follow up appointment with [facility]. Where: [address] [place] [address]- Business (1) Medications What How [...] oral tablet) 1 Tablet(s) Oral Every Day Hold if SBP < 90 New aspirin (Aspirin Enteric Coated 81 mg oral delayed release tablet) 1 Tablet(s) Oral Every Day Resume on if no evidence of re-bleeding. New atorvastatin (Lipitor 20 mg oral tablet) 1 Tablet(s) Oral At Bedtime New docusate (Colace 100 mg oral capsule) 1 Capsule(s) Oral Two Times A Day New emollients, topical (Chap Stick) 1 Application(s) Topical Every Hour as needed for Other (See Comment) New magnesium hydroxide (Milk of Magnesia 8% oral suspension) 30 Milliliter(s) Oral Every 8 Hours as needed for Constipation New metoclopramide (metoclopramide 5 mg oral tablet) 1 Tablet(s) Oral Every 6 Hours as needed for Nausea/Vomiting New miSOPROStol (Cytotec 100 mcg oral tablet) 1 Tablet(s) Oral Four Times A Day New ondansetron (ondansetron 4 mg oral tablet) 1 Tablet(s) Oral Every 4 Hours as needed for Nausea New pantoprazole (pantoprazole 40 mg oral delayed release tablet) 1 Tablet(s) Oral Two Times A Day New sucralfate (Carafate 1 g/ 10 mL oral suspension) 10 Milliliter(s) Oral Before Meals and at Bedtime Changed metoprolol (Metoprolol Tartrate 25 mg oral tablet) 1 Tablet(s) Oral Two Times A Day Hold if HR < 60 Changed rOPINIRole (rOPINIRole 1 mg oral tablet) 2 Tablet(s) Oral Two Times A Day Unchanged dutasteride (Avodart 0.5 mg oral capsule) 1 Capsule(s) Oral Before Dinner Unchanged levothyroxine (levothyroxine 50 mcg (0.05 mg) oral tablet) 1 Tablet(s) Oral Every Day Unchanged losartan (losartan 100 mg oral tablet) 1 Tablet(s) Oral Every Day Hold if SBP < 90 Take your medications faithfully. Do NOT skip [...] the following: ??? Sudden infant syndrome (SIDS). ??? Respiratory infections. ??? Lung [...] contain harmful chemicals. FOR MORE INFORMATION ??? [place] [employer]: www.lung.org ??? [place] [employer]: www.cancer.org This information is not intended to replace advice given to you by your health care provider. Make sure you discuss any questions you have with your health care provider. Document Released: 09/17/2005 Document Revised: 12/01/2016 Document Reviewed: 01/30/2014 [employer] Interactive Patient Education ?? 2017 [employer]. How to Take Your Blood Pressure HOW [...] 07/23/2009 Document Revised: 08/31/2015 Document Reviewed: 10/05/2014 Elsevier Interactive Patient Education ?? 2017 Elsevier Inc. How to Take a Pulse Your [...] 02/14/2004 Document Revised: 02/27/2017 Document Reviewed: 01/13/2017 [employer] Interactive Patient Education ?? 2017 [employer]. Coronary Artery Bypass Grafting, Care After [...] 02/27/2006 Document Revised: 08/31/2015 Document Reviewed: 01/17/2014 [employer] Interactive Patient Education ?? 2017 [employer]. Bleeding Precautions When on Anticoagulant Therapy [...] can be dangerous for you. ??? Many znrj-xdh-bopmhgp medicines for pain, colds, or stomach problems [...] provider. Document Released: 07/21/2016 Document Reviewed: 07/21/2016 [employer] Interactive Patient Education ?? 2017 [employer] Inc. Atrial Fibrillation Introduction Atrial fibrillation is [...] Follow these instructions at home: ??? Take ylsu-miz-hstmxcp and prescription medicines only as told by [...] 09/17/2005 Document Revised: 01/15/2017 Document Reviewed: 02/10/2014 [employer] Interactive Patient Education ?? 2017 [employer]. misoprostol (reji ramos) [facility] What is the most important information I [...] disease; or ?? if you are dehydrated. [facility] category X. Misoprostol can cause defects, premature [...] may report side effects to FDA at 5-088-HET-9731. What other drugs will affect misoprostol? Other drugs may interact with misoprostol, including prescription and eech-jxy-etnanis medicines, vitamins, and herbal products. Tell each [...] to ensure that the information provided by [employer]. ('[employer]') is accurate, up-to-date, and complete, but no guarantee is made to that effect. Drug information contained herein may be time sensitive. [employer] information has been compiled for use by healthcare practitioners and consumers in the [place] and therefore [employer] does not warrant that uses outside of the [place] are appropriate, unless specifically indicated otherwise. [employer] drug information does not endorse drugs, diagnose patients or recommend therapy. [employer] drug information is an informational resource designed [...] effective or appropriate for any given patient. [facility] does not assume any responsibility for any aspect of healthcare administered with the aid of information [facility] provides. The information contained herein is not intended to cover all possible uses, directions, precautions, warnings, drug interactions, allergic reactions, or adverse effects. If you have questions about the drugs you are taking, check with your doctor, nurse or pharmacist. Copyright 0829-3915 [facility]. Version: 8.01. Revision Date: 03/02/2014.sucralfate (oral) (angelica [...] may report side effects to FDA at 7-416-MGG-9745. What other drugs will affect sucralfate? Sucralfate can make it harder for your body to absorb other medications you take by mouth. Avoid taking any other medications within 2 hours before or after you take sucralfate. Other drugs may interact with sucralfate, including prescription and hago-idq-jjhezjc medicines, vitamins, and herbal products. Tell each [...] to ensure that the information provided by [employer]. ('[employer]um') is accurate, up-to-date, and complete, but no guarantee is made to that effect. Drug information contained herein may be time sensitive. [employer] information has been compiled for use by healthcare practitioners and consumers in the [place] and therefore [employer] does not warrant that uses outside of the [place] are appropriate, unless specifically indicated otherwise. [employer] drug information does not endorse drugs, diagnose patients or recommend therapy. [employer] drug information is an informational resource designed [...] effective or appropriate for any given patient. [employer] does not assume any responsibility for any aspect of healthcare administered with the aid of information [employer] provides. The information contained herein is not intended to cover all possible uses, directions, precautions, warnings, drug interactions, allergic reactions, or adverse effects. If you have questions about the drugs you are taking, check with your doctor, nurse or pharmacist. Copyright 3540-2270 [employer]. Version: 8.01. Revision Date: 01/03/2013.sucralfate (oral) (angelica [...] may report side effects to FDA at 4-747-YOL-3276. What other drugs will affect sucralfate? Sucralfate can make it harder for your body to absorb other medications you take by mouth. Avoid taking any other medications within 2 hours before or after you take sucralfate. Other drugs may interact with sucralfate, including prescription and gvga-jee-zfroqbt medicines, vitamins, and herbal products. Tell each [...] to ensure that the information provided by [employer]. ('[employer]um') is accurate, up-to-date, and complete, but no guarantee is made to that effect. Drug information contained herein may be time sensitive. [employer] information has been compiled for use by healthcare practitioners and consumers in the [place] and therefore [employer] does not warrant that uses outside of the [place] are appropriate, unless specifically indicated otherwise. [employer] drug information does not endorse drugs, diagnose patients or recommend therapy. [employer] drug information is an informational resource designed [...] effective or appropriate for any given patient. [facility] does not assume any responsibility for any aspect of healthcare administered with the aid of information [facility] provides. The information contained herein is not intended to cover all possible uses, directions, precautions, warnings, drug interactions, allergic reactions, or adverse effects. If you have questions about the drugs you are taking, check with your doctor, nurse or pharmacist. Copyright 3851-7466 [employer]. Version: 8.01. Revision Date: 01/03/2013. Emergency Awareness [...] Assistance with quitting is available by contacting 2-714-AFPX-NOW. This is a free resource providing counseling, [...] not getting better or is getting worse. Electronically signed by Parveen, Christina Conversion General Service Technician Cerner at 12/08/2022 12:20 PM CDT documented in this encounter Plan of Treatment Not on file documented as of this encounter Visit Diagnoses Not on filedocumented in this encounter
--- OUTSIDE RECORDS SUMMARY | 2025-02-23 11:53 | XMS_ITS | Encounter Summary ---
Author Organization [employer] ([place], [place], [place], [place]) Address [address] [place] [address] Care Team Providers Care Manager Health Name Role Phone Unavailable Primary Care Provider Unavailabl e Encounter Details Date Type Department Care Team (Late st Contact Info) Description 11/24/2018 Transcribed Document [facility] [place] [address] [place] [address] ProviderErika MD [address] [place] [address] Social History Tobacco Use Types Packs/Day Years Used Date Smoking Tobacco: Never Assessed Sex and Gender Information Value Date Recorded Sex Assigned at Not on file Legal Sex Male 5:03 PM CDT Gender Identity Not on file Sexual Orientation Not on file documented as of this encounter Miscellaneous Notes * Cerner Conversion Note - Historical ProviderMD - 11/24/2018 4:00 AM CDT Height and Weight, Routine Entered On: 11/24/2018 3:37 EDT Performed On: 11/24/2018 4:00 EDT by SHELDON MUELLER RN Height and Weight, Routine Routine Weight Source : Bed scale Routine Weight Entry Format : [place]berg Routine Weight, Pounds : 180 lb Routine Weight, Ounces : 8 oz Routine Weight Calculation : 82.05 kg Height Source : Measured Height Entry Format : [place]berg Height, Feet : 6 ft Height, Inches : 1 Inch Clinical Height : 185.42 cm Body Surface Area (BSA), Routine : 2.06 m2 Body Mass Index (BMI), Routine : 23.87 kg/m2 SHELDON MUELLER RN - 11/24/2018 3:36 EDT documented in this encounter Plan of Treatment Not on file documented as of this encounter Visit Diagnoses Not on filedocumented in this encounter
--- OUTSIDE RECORDS SUMMARY | 2025-02-23 11:53 | XMS_ITS | Encounter Summary ---
Author Organization [employer] ([place], [place], [place], [place]) Address [address] [place] [address] Care Team Providers Care Mitochondrial Disorders Counselor Name Role Phone Unavailable Primary Care Provider Unavailabl e Encounter Details Date Type Department Care Team (Late st Contact Info) Description 11/23/2018 Transcribed Document [facility] [place] Family Medicine [address] [place] [address] ProviderErika MD [address] [place] [address] Social History Tobacco Use Types Packs/Day Years Used Date Smoking Tobacco: Never Assessed Sex and Gender Information Value Date Recorded Sex Assigned at Not on file Legal Sex Male 5:03 PM CDT Gender Identity Not on file Sexual Orientation Not on file documented as of this encounter Miscellaneous Notes * Cerner Conversion Note - Historical ProviderMD - 11/23/2018 1:36 PM CDT Education-Wound Care Entered On: 11/23/2018 16:44 EDT Performed On: 11/23/2018 13:36 EDT by Ana Munoz RN Teaching/Learning Assessment Barriers To Learning : Acuity of Illness, Cognitive deficit Highest Level of Education : University degree(s) Learning Style Preferences Patient : None Learning Style Preferences Family : None Ana Munoz RN - 11/23/2018 16:44 EDT Electronically signed by Christina Saini Conversion Director Of Operations Home Health Cerner at 12/08/2022 12:25 PM CDT documented in this encounter Plan of Treatment Not on file documented as of this encounter Visit Diagnoses Not on filedocumented in this encounter
--- OUTSIDE RECORDS SUMMARY | 2025-02-23 11:53 | XMS_ITS | Encounter Summary ---
Author Organization [employer] ([place], [place], [place], [place]) Address [address] [place] [address] Care Team Providers Care Md Do Resident Urgent Care Name Role Phone Unavailable Primary Care Provider Unavailabl e Encounter Details Date Type Department Care Team (Late st Contact Info) Description 11/24/2018 Transcribed Document [facility] [place] [address] [place] [address] ProviderErika MD [address] [place] [address] Social History Tobacco Use Types Packs/Day Years Used Date Smoking Tobacco: Never Assessed Sex and Gender Information Value Date Recorded Sex Assigned at Not on file Legal Sex Male 5:03 PM CDT Gender Identity Not on file Sexual Orientation Not on file documented as of this encounter Miscellaneous Notes * Cerner Conversion Note - Historical ProviderMD - 11/24/2018 1:21 PM CDT Care Management Assessment/Plan Entered On: 11/24/2018 13:22 EDT Performed On: 11/24/2018 13:21 EDT by ODALYS FAULKNER Rn-It Operations SpecialistContract Coordinator Note Care Management Note : 11/24/18 Andra from [facility] called to let me know they started a precert on this pt. CF Care Management Note Report : ODALYS FAULKNER Rn-It Operations Specialist - 11/22/18 13:56:32 11/22/18 Pt has had a cva. Spoke to his Connie and son Sumeet at the bedside. Pt is lfacid on the left side. Discussed the need for STR and they decided on [facility]. Sent pt info via [employer] to [facility]. CF Documentation Status Complete : Yes ODALYS FAULKNER Rn-It Operations Specialist - 11/24/2018 13:21 EDT Electronically signed by Parveen [facility] Conversion Retail Support Manager [employer] at 12/08/2022 12:31 PM CDT documented in this encounter Plan of Treatment Not on file documented as of this encounter Visit Diagnoses Not on filedocumented in this encounter
--- OUTSIDE RECORDS SUMMARY | 2025-02-23 11:53 | XMS_ITS | Encounter Summary ---
Author Organization [employer] ([place], [place], [place], [place]) Address [address] [place] [address] Care Team Providers Care Major Assembler Name Role Phone Unavailable Primary Care Provider Unavailabl e Encounter Details Date Type Department Care Team (Late st Contact Info) Description 11/28/[address] [facility] [place] Family Medicine [address] [place] [address] ProviderErika MD [address] [place], [place] [id number] Social History Tobacco Use Types Packs/Day Years Used Date Smoking Tobacco: Never Assessed Sex and Gender Information Value Date Recorded Sex Assigned at Not on file Legal Sex Male 5:03 PM CDT Gender Identity Not on file Sexual Orientation Not on file documented as of this encounter Miscellaneous Notes * Cerner Conversion Note - Historical ProviderMD - 11/28/2018 4:12 AM CDT Spiritual Care Short Form Entered On: 11/28/2018 5:35 EDT Performed On: 11/28/2018 4:12 EDT by MALU SHEPARD Chaplain-Non Cert General Information, Spiritual Care Reason for Visit : Other: LEAD [employer]GOMAN Intervention/Comment/Summary Points : Pt fell back to sleep after RNs finished assessing pt. No needs at this time. Gnosticist Preference : Hindu MALU SHEPARD Chaplain-Non Cert - 11/28/2018 5:34 EDT documented in this encounter Plan of Treatment Not on file documented as of this encounter Visit Diagnoses Not on filedocumented in this encounter
--- OUTSIDE RECORDS SUMMARY | 2025-02-23 11:53 | XMS_ITS | Encounter Summary ---
Author Organization [facility] Address [address] [place] [address] Care Team Providers Care Blacksmith Helper Name Role Phone Sanjuana Valdez APRN Primary Care Provider [phone] Clifford Horner MD Primary Care Provider [phone] Encounter Details Date Type Department Care Team (Late st Contact Info) Description 06/02/2022 [facility] [address] [place] [address] Joanna Zamora, DPM [address] [place], [place] [id number] Contracture of left ankle (Primary Dx); Contracture of joint of left foot Social History Tobacco Use Types Packs/Day Years Used Date Smoking Tobacco: Former Sex and Gender Information Value Date Recorded Sex Assigned at Not on file Legal Sex Male 8:11 PM EDT Gender Identity Not on file Sexual Orientation Not on file documented as of this encounter Plan of Treatment Not on file documented as of this encounter Visit Diagnoses Diagnosis Contracture of left ankle- Primary Contracture of joint of left foot documented in this encounter Care Teams Blacksmith Helper Relationship Specialty Start Date End Date Sanjuana Valdez APRN [address] [place] [address] PCP - General 01/04/21 07/13/24 Clifford Horner MD [address] [place] [address] PCP - General 07/14/24 documented as of this encounter
--- OUTSIDE RECORDS SUMMARY | 2025-02-23 11:53 | XMS_ITS | Encounter Summary ---
Author Organization [employer] ([place], [place], [place], [place]) Address [address] [place] [address] Care Team Providers Care Supervising Fire Marshal Name Role Phone Unavailable Primary Care Provider Unavailabl e Encounter Details Date Type Department Care Team (Late st Contact Info) Description 11/28/2018 Transcribed Document [facility] [place] [facility] [place] [address] [place] [address] ProviderErika MD [address] [place] [address] Social History Tobacco Use Types Packs/Day Years Used Date Smoking Tobacco: Never Assessed Sex and Gender Information Value Date Recorded Sex Assigned at Not on file Legal Sex Male 5:03 PM CDT Gender Identity Not on file Sexual Orientation Not on file documented as of this encounter Miscellaneous Notes * Cerner Conversion Note - Erika Jose MD - 11/28/2018 1:58 PM CDT Rapid Response Team Documentation Entered On: 11/28/2018 14:02 EDT Performed On: 11/28/2018 13:58 EDT by MICHAEL WALLER RN Rapid Response Event Time Rapid Response Team Called : 11/28/2018 13:27 EDT Rapid Response Team Arrival Time : 11/28/2018 13:30 EDT Rapid Response Team Event End Time : 11/28/2018 13:50 EDT Rapid Response Event Intiated By : Hospital Staff Rapid Response Team Initiation Reason : Peripheral IV start Rapid Response Event Location Type : Critical Care Rapid Response Team Initiation Reason Details : [id number]. Pt requiring additional IV access. 20R shoulder x1 attempt using vein fisher troll line. Rapid Response Admission Diagnosis : Atherosclerotic heart disease of [place] coronary artery without angina pectoris Atherosclerotic heart disease of [place] coronary artery without angina pectoris Cerebral infarction, [...] Rapid Response Recent Vital Signs : 11/28/2018 10:00 Systolic Blood Pressure 84 11/28/2018 10:00 Diastolic Blood Pressure 52 11/28/2018 10:00 Heart Rate Monitored 104 11/28/2018 09:00 Heart Rate, Apical Not Done: Not Appropriate at t 11/28/2018 10:00 Respiratory Rate 19 11/28/2018 10:00 Temperature, Fahrenheit 98.6 11/28/2018 10:00 Oxygen Saturation 99 Rapid Response Recent Lab Results : 11/28/2018 [...] 11/28/2018 02:54 Creatinine Level 0.90 (0.70-1.30) 11/28/2018 08:27 PT HI 20.8 (9.6-12.0) 11/28/2018 08:27 INR HI 2.0 (0.9-1.1) 11/28/2018 08:27 PTT 27.6 (22.0-32.0) 11/15/2018 14:15 Hgb A1C 6.00 (4.20-6.30) 11/28/2018 08:27 Hgb LOW 7.9 (13.5-17.3) 11/28/2018 08:27 Hct LOW 23.6 (40.1-51.0) 11/28/2018 02:54 RBC LOW 3.15 (4.20-5.70) [...] change in location/level of care Rapid Response Supervising Fire Marshal #1 : MICHAEL WALLER, RN MICHAEL WALLER, RN - 11/28/2018 13:58 EDT Electronically signed by Parveen [facility] Conversion Head Athletic Trainer Cerner at 12/08/2022 12:28 PM CDT documented in this encounter Plan of Treatment Not on file documented as of this encounter Visit Diagnoses Not on filedocumented in this encounter
--- OUTSIDE RECORDS SUMMARY | 2025-02-23 11:53 | XMS_ITS | Encounter Summary ---
Author Organization [employer] ([place], [place], [place], [place]) Address [address] [place] [address] Care Team Providers Care Patient Intake Coordinator Name Role Phone Unavailable Primary Care Provider Unavailabl e Encounter Details Date Type Department Care Team (Late st Contact Info) Description 11/23/2018 Transcribed Document [facility] [place] [address] [place] [address] ProviderErika MD [address] [place] [address] Social History Tobacco Use Types Packs/Day Years Used Date Smoking Tobacco: Never Assessed Sex and Gender Information Value Date Recorded Sex Assigned at Not on file Legal Sex Male 5:03 PM CDT Gender Identity Not on file Sexual Orientation Not on file documented as of this encounter Miscellaneous Notes * Cerner Conversion Note - Historical ProviderMD - 11/23/2018 5:00 PM CDT Chart Check - Review Order Profile Entered On: 11/23/2018 16:45 EDT Performed On: 11/23/2018 17:00 EDT by Ana Munoz RN Chart Check Chart Reviewed Date and Time : 11/23/2018 16:45 EDT [employer] Initiated/Discontinued as Appropriate : Yes Ana Munoz RN - 11/23/2018 16:45 EDT Electronically signed by Christina Saini Conversion Meteorological Equipment Repairer Cerner at 12/08/2022 12:29 PM CDT documented in this encounter Plan of Treatment Not on file documented as of this encounter Visit Diagnoses Not on filedocumented in this encounter
--- OUTSIDE RECORDS SUMMARY | 2025-02-23 11:54 | XMS_ITS | Encounter Summary ---
Author Organization [employer] ([place], [place], [place], [place]) Address [address] [place] [address] Care Team Providers Care Cleaning Custodian Name Role Phone Unavailable Primary Care Provider Unavailabl e Encounter Details Date Type Department Care Team (Late st Contact Info) Description 11/19/2018 Transcribed Document [facility] [place] Family Medicine [address] [place] [address] ProviderErika MD [address] [place], [place] [id number] Social History Tobacco Use Types Packs/Day Years Used Date Smoking Tobacco: Never Assessed Sex and Gender Information Value Date Recorded Sex Assigned at Not on file Legal Sex Male 5:03 PM CDT Gender Identity Not on file Sexual Orientation Not on file documented as of this encounter Miscellaneous Notes * [employer]ner Conversion Note - Erika Jose MD - 11/19/2018 9:16 AM CDT Patient: DOTTIE VILLASENOR Age: 78 years Sex: Male : 1940 Associated Diagnoses: CAD (coronary artery disease), [place] coronary artery; Thrombocytopenia; Coronary artery disease; HTN (hypertension); Hypothyroidism; Aortic insufficiency; RLS (restless legs syndrome); Thoracic ascending aortic aneurysm Author: MARIEL ROBLES PA Basic Information POD#3 S/P Resection and Grafting of Ascending Thoracic [...] face when his bipap mask was on. Review of Systems Constitutional: Weakness. Health Status Allergies: Allergies (2) Active Reaction No Known Allergies None Documented No Known Medication Allergies None Documented Current medications: Ntg 30mcg/min Insulin 1U/hr Physical Examination Intake and Output 24 hour intake: Total 1813 ml 24 hour output: Urinary catheter 670 ml, Total 710 ml VS/Measurements Vital Measurements 11/19/2018 9:16 EDT Heart Rate Monitored 99 bpm Oxygen Saturation 98 % 11/19/2018 8:00 EDT Temperature, Celsius 37.6 Deg C Clinical Temperature, F 99.7 Deg F Systolic Blood Pressure 122 mmHg Diastolic Blood Pressure 69 mmHg Mean Arterial Pressure (MAP)-BMDI 88 Systolic BP, Arterial Line 1 138 mmHg Diastolic BP, Arterial Line 1 63 mmHg Mean Arterial Pressure, Line 1 85 mmHg Oxygen Therapy Mode BiPAP FiO2 50 % General: No acute distress, Alert. HENT: Normocephalic. Neck: Supple. Respiratory: Respirations are non-labored. Breath sounds: Diminished. Cardiovascular: Normal rate, 99 beats per minute, Regular rhythm, S1, S2, No edema. Integumentary: Warm, Dry, [place], incision is C/D/I, He did not follow any commands. Neurologic: Alert. Review / Management Results review: NOV 19 04:08 138 105 21 / H 184 4.0 28 0.70 \ NOV 19 04:08 \ L 10.0 / H 15.0 L 101 / L 30.3 \ Blood Gases (Current [...] -POD#3 -Possible Neuro consult -Check ammonia level EF 55-60% per echo 11/16/18 DVT Prophylaxis: SCDs Diagnosis CAD (coronary artery disease), [place] coronary artery - Admitting, Medical. Thrombocytopenia - [...]
--- OUTSIDE RECORDS SUMMARY | 2025-02-23 11:54 | XMS_ITS | Encounter Summary ---
Author Organization [employer] ([place], [place], [place], [place]) Address [address] [place] [address] Care Team Providers Care Poultry Farmer Egg Name Role Phone Unavailable Primary Care Provider Unavailabl e Encounter Details Date Type Department Care Team (Late st Contact Info) Description 11/27/2018 Transcribed Document [facility] [place] Family Medicine [address] [place] [address] ProviderErika MD [address] [place], [place] [id number] Social History Tobacco Use Types Packs/Day Years Used Date Smoking Tobacco: Never Assessed Sex and Gender Information Value Date Recorded Sex Assigned at Not on file Legal Sex Male 5:03 PM CDT Gender Identity Not on file Sexual Orientation Not on file documented as of this encounter Miscellaneous Notes * Cerner Conversion Note - Erika Jose MD - 11/27/2018 4:26 PM CDT Patient: DOTTIE VILLASENOR Age: 78 years Sex: Male : 1940 Associated Diagnoses: CAD (coronary artery disease), [place] coronary artery; Thrombocytopenia; Coronary artery disease; HTN (hypertension); Hypothyroidism; Aortic insufficiency; RLS (restless legs syndrome); Thoracic ascending aortic aneurysm; Right MCA CVA (cerebral vascular accident) Author: YOLANDA SWARTZ PA Basic Information POD#10 S/P Resection and Grafting [...] X4, left side paralysis. Health Status Allergies: Allergies (2) Active Reaction No Known Allergies None Documented No Known Medication Allergies None Documented Physical Examination VS/Measurements Vital Measurements 11/27/2018 9:48 EDT Heart Rate, Apical 101 bpm HI 11/27/2018 9:31 EDT Temperature, Fahrenheit 97.5 Deg F Systolic Blood Pressure 96 mmHg Diastolic Blood Pressure 58 mmHg LOW Oxygen Saturation 95 % Oxygen Therapy Mode Room air General: No acute distress. Respiratory: Respirations are non-labored. Breath sounds: Diminished. Cardiovascular: Normal rate, 101 beats per minute, Regular rhythm, S1, S2, left upper extremity swelling - improved today. Integumentary: Warm, Dry, [place], incision is C/D/I. Neurologic: Alert, Oriented, left sided paralysis. Psychiatric: Cooperative, Appropriate mood & affect. Review / Management Results review: NOV 27 06:12 136 102 21 / 96 4.3 27 0.80 \ NOV 27 06:12 \ L 11.8 / H 11.6 332 / L 35.7 \ Blood Gases (Current Encounter/Past 24 Hours) No Blood Gas Results Found (Past 24 Hours) Coagulation Results (Current Encounter/Past 24 Hours) PT 14.8 Second(s) ME 11/27/2018 07:36 PTT 55.8 Second(s) ME 11/26/2018 11:12 INR 1.4 ME 11/27/2018 07:36 . Impression and Plan Plan: 11/17/18 -POD#1 [...] restricted diffusion consistent with acute ischemic infarct. -[facility]ane is working with pt -Pt will need inpatient rehab at the time of discharge- has sent information to [facility] -Transfer to [facility] 11/24/18 -POD#8 -Awaiting transfer to [facility] -Awaiting response from [facility] 11/25/18 -left upper extremity venous doppler - doppler this am positive for LUE DVT - will start coumadin and heparin bridge -awaiting [facility] 11/26/18 -Heparin drip and coumadin for LUE DVT Left arm swelling improved today INR 1.1 today, INR goal 2-3 Possibly transfer to [facility] this weekend 11/27/18: Left arm swelling continues to improve Continues on Coumadin and heparin bridge INR: 1.4 (1.1 yesterday) goal: 2 to 3 [facility] soon,? Tomorrow EF 55-60% per echo 11/16/18 DVT Prophylaxis: SCDs Diagnosis CAD (coronary artery disease), [place] coronary artery - Admitting, Medical. Thrombocytopenia - [...]
--- OUTSIDE RECORDS SUMMARY | 2025-02-23 11:54 | XMS_ITS | Encounter Summary ---
Author Organization [employer] ([place], [place], [place], [place]) Address [address] [place] [address] Care Team Providers Care Correctional Case Manager Name Role Phone Unavailable Primary Care Provider Unavailabl e Encounter Details Date Type Department Care Team (Late st Contact Info) Description 11/05/2018 Transcribed Document [facility] [place] [address] [place] [address] ProviderErika MD [address] [place] [address] Social History Tobacco Use Types Packs/Day Years Used Date Smoking Tobacco: Never Assessed Sex and Gender Information Value Date Recorded Sex Assigned at Not on file Legal Sex Male 5:03 PM CDT Gender Identity Not on file Sexual Orientation Not on file documented as of this encounter Miscellaneous Notes * Cerner Conversion Note - Erika ProviderMD - 11/05/2018 12:46 PM CDT Nursing Discharge Summary Entered On: 11/05/2018 12:46 EDT Performed On: 11/05/2018 12:46 EDT by SRIRAM PATEL RN Discharge Documentation Discharge Date/Time : 11/05/2018 13:15 EDT SRIRAM PATEL RN - 11/05/2018 14:47 EDT Patient Disposition, General : Discharge Discharge To : Home with ambulatory/outpatient follow-up Mode Of Departure, General Discharge : Wheelchair Accompanied By, Discharge : Son IV Discontinued : Yes Medications Given to Patient : Yes Personal Belongings With Patient : Yes Prescriptions Given to Patient : No Discharge Instructions Reviewed With, Opportunity For Questions Given : Patient, Son Patient Education Completed : Yes Teaching Method : Explanation, Printed materials Teaching Evaluation : Returns demonstration, Verbalizes understanding Worker's Compensation Paperwork Completed : No SRIRAM PATEL RN - 11/05/2018 12:46 EDT Electronically signed by Parveen Cox [place] Conversion Branch Service Representative Cerner at 12/08/2022 12:20 PM CDT documented in this encounter Plan of Treatment Not on file documented as of this encounter Visit Diagnoses Not on filedocumented in this encounter
--- OUTSIDE RECORDS SUMMARY | 2025-02-23 11:54 | XMS_ITS | Encounter Summary ---
Author Organization [employer] ([place], [place], [place], [place]) Address [address] [place] [address] Care Team Providers Care Technology Infusion Specialist Name Role Phone Unavailable Primary Care Provider Unavailabl e Encounter Details Date Type Department Care Team (Late st Contact Info) Description 11/28/2018 Transcribed Document [facility] [place] Family Medicine [address] [place] [address] ProviderErika MD [address] [place] [address] Social History Tobacco Use Types Packs/Day Years Used Date Smoking Tobacco: Never Assessed Sex and Gender Information Value Date Recorded Sex Assigned at Not on file Legal Sex Male 5:03 PM CDT Gender Identity Not on file Sexual Orientation Not on file documented as of this encounter Miscellaneous Notes * Cerner Conversion Note - Historical ProviderMD - 11/28/2018 8:26 AM CDT Consult Phone Call Documentation Entered On: 11/28/2018 11:41 EDT Performed On: 11/28/2018 8:26 EDT by DIA BINGHAM, RN Phone Call for Consults Consult Phone Call/Page Attempt : First call DIA BINGHAM RN - 11/28/2018 11:41 EDT documented in this encounter Plan of Treatment Not on file documented as of this encounter Visit Diagnoses Not on filedocumented in this encounter
--- OUTSIDE RECORDS SUMMARY | 2025-02-23 11:54 | XMS_ITS | Encounter Summary ---
Author Organization [employer] ([place], [place], [place], [place]) Address [address] [place] [address] Care Team Providers Care Development Director Name Role Phone Unavailable Primary Care Provider Unavailabl e Encounter Details Date Type Department Care Team (Late st Contact Info) Description 11/27/2018 Transcribed Document [facility] [place] Family Medicine [address] [place] [address] ProviderErika MD [address] [place], [place] [id number] Social History Tobacco Use Types Packs/Day Years Used Date Smoking Tobacco: Never Assessed Sex and Gender Information Value Date Recorded Sex Assigned at Not on file Legal Sex Male 5:03 PM CDT Gender Identity Not on file Sexual Orientation Not on file documented as of this encounter Miscellaneous Notes * Cerner Conversion Note - Historical ProviderMD - 11/27/2018 2:00 AM CDT Node Js Developer Details Entered On: 11/27/2018 3:00 EDT Performed On: 11/27/2018 2:00 EDT by Robyn Benitez, RN Order [...] Line : No Robyn Benitez, RN - 11/27/2018 3:00 EDT Electronically signed by Christina Saini Conversion Collector Of Internal Revenue Cerner at 12/08/2022 12:30 PM CDT documented in this encounter Plan of Treatment Not on file documented as of this encounter Visit Diagnoses Not on filedocumented in this encounter
--- OUTSIDE RECORDS SUMMARY | 2025-02-23 11:54 | XMS_ITS | Encounter Summary ---
Author Organization [employer] ([place], [place], [place], [place]) Address [address] [place] [address] Care Team Providers Care Servomechanism Assembler Name Role Phone Unavailable Primary Care Provider Unavailabl e Encounter Details Date Type Department Care Team (Late st Contact Info) Description 11/19/2018 Transcribed Document [facility] [place] [address] [place] [address] ProviderErika MD [address] [place] [...] Note - Erika Jose MD - 11/19/2018 12:34 PM CDT Clinical Dietitian Note Entered On: 11/19/2018 12:36 EDT Performed On: 11/19/2018 12:[address], LD Clinical Dietitian Note Clinical Dietitian Note : 11/19: Checked on pt, tolerating TF at goal rate. No BM noted (day 4). Pt remains decreased alertness-unsafe for po. Spoke with RN about changing TF regimen to add fiber. EST NEEDS: [id number] kcal (25-30kcal/kg), 95g pro (1.2g/kg) 1. Change TF to Jevity 1.5 @ 60 ml/hr + 1 bottle [id number] daily (Provides 2040 kcal; 99 gm pro) Goal: meet est needs 2. Monitor alertness and appropriateness for TICKET COLLECTOR eval Goal: est safe po diet 3. Weigh pt 2x weekly Goal: no sig weight changes High Risk DAVION GREEN RD, LD - 11/19/2018 12:43 EDT Electronically signed by Parveen, [facility] Conversion [employer] Spanish Teacher Cerner at 12/08/2022 12:18 PM CDT documented in this encounter Plan of Treatment Not on file documented as of this encounter Visit Diagnoses Not on filedocumented in this encounter
--- OUTSIDE RECORDS SUMMARY | 2025-02-23 11:54 | XMS_ITS | Encounter Summary ---
Author Organization [employer] ([place], [place], [place], [place]) Address [address] [place] [address] Care Team Providers Care Neurosurgery Research Director Name Role Phone Unavailable Primary Care Provider Unavailabl e Encounter Details Date Type Department Care Team (Late st Contact Info) Description 11/05/2018 Transcribed Document [facility] Family Medicine [address] [place] [address] ProviderErika MD [address] [place] [address] Social History Tobacco Use Types Packs/Day Years Used Date Smoking Tobacco: Never Assessed Sex and Gender Information Value Date Recorded Sex Assigned at Not on file Legal Sex Male 5:03 PM CDT Gender Identity Not on file Sexual Orientation Not on file documented as of this encounter Miscellaneous Notes * [employer]ner Conversion Note - Historical ProviderMD - 11/05/2018 12:24 PM CDT Event Note Entered On: 11/05/2018 12:27 EDT Performed On: 11/05/2018 12:24 EDT by SRIRAM PATEL RN Event Note Event Date/Time : 11/05/2018 12:20 EDT Description of Event : 1220: Pt's heart rate is in 40's , low 50's. BP 143/76. Nina Garvin RN notified of heart rate. To keep medications/doseages the same since pt. is in need of aneurysm repair. TONJA Mcdonnell CARLA L, RN - 11/05/2018 12:24 EDT documented in this encounter Plan of Treatment Not on file documented as of this encounter Visit Diagnoses Not on filedocumented in this encounter
--- OUTSIDE RECORDS SUMMARY | 2025-02-23 11:54 | XMS_ITS | Encounter Summary ---
Author Organization [employer] ([place], [place], [place], [place]) Address [address] [place] [address] Care Team Providers Care Pilates Instructor Name Role Phone Unavailable Primary Care Provider Unavailabl e Encounter Details Date Type Department Care Team (Late st Contact Info) Description 11/21/2018 Transcribed Document [facility] [place] [address] [place] [address] ProviderErika MD [address] [place] [address] Social History Tobacco Use Types Packs/Day Years Used Date Smoking Tobacco: Never Assessed Sex and Gender Information Value Date Recorded Sex Assigned at Not on file Legal Sex Male 5:03 PM CDT Gender Identity Not on file Sexual Orientation Not on file documented as of this encounter Miscellaneous Notes * Cerner Conversion Note - Historical ProviderMD - 11/21/2018 5:00 AM CDT Chart Check - Review Order Profile Entered On: 11/21/2018 5:38 EDT Performed On: 11/21/2018 5:00 EDT by SHERRIE FUENTES RN Chart Check Chart Reviewed Date and Time : 11/21/2018 5:00 EDT Power[employer] Initiated/Discontinued as Appropriate : Yes All Active Orders Reviewed : Yes SHERRIE FUENTES RN - 11/21/2018 5:38 EDT documented in this encounter Plan of Treatment Not on file documented as of this encounter Visit Diagnoses Not on filedocumented in this encounter
--- OUTSIDE RECORDS SUMMARY | 2025-02-23 11:54 | XMS_ITS | Encounter Summary ---
Author Organization [employer] ([place], [place], [place], [place]) Address [address] [place] [address] Care Team Providers Care Drum Sander Offbearer Name Role Phone Unavailable Primary Care Provider Unavailabl e Encounter Details Date Type Department Care Team (Late st Contact Info) Description 11/16/2018 Transcribed Document [facility] [place] Family Medicine [address] [place] [address] ProviderErika MD [address] [place] [address] Social History Tobacco Use Types Packs/Day Years Used Date Smoking Tobacco: Never Assessed Sex and Gender Information Value Date Recorded Sex Assigned at Not on file Legal Sex Male 5:03 PM CDT Gender Identity Not on file Sexual Orientation Not on file documented as of this encounter Miscellaneous Notes * [employer]ner Conversion Note - Historical ProviderMD - 11/16/2018 5:00 PM CDT Chart Check - Review Order Profile Entered On: 11/16/2018 18:59 EDT Performed On: 11/16/2018 17:00 EDT by FROY NEIL RN Chart Check Chart Reviewed Date and Time : 11/16/2018 18:59 EDT Powerplans Initiated/Discontinued as Appropriate : Yes All Active Orders Reviewed : Yes FROY NEIL RN - 11/16/2018 18:59 EDT documented in this encounter Plan of Treatment Not on file documented as of this encounter Visit Diagnoses Not on filedocumented in this encounter
--- OUTSIDE RECORDS SUMMARY | 2025-02-23 11:54 | XMS_ITS | Encounter Summary ---
Author Organization [employer] ([place], [place], [place], [place]) Address [address] [place] [address] Care Team Providers Care Web Content Writer Name Role Phone Unavailable Primary Care Provider Unavailabl e Encounter Details Date Type Department Care Team (Late st Contact Info) Description 11/05/2018 Transcribed Document [facility] [place] Family Medicine [address] [place] [address] ProviderErika MD [address] [place] [address] Social History Tobacco Use Types Packs/Day Years Used Date Smoking Tobacco: Never Assessed Sex and Gender Information Value Date Recorded Sex Assigned at Not on file Legal Sex Male 5:03 PM CDT Gender Identity Not on file Sexual Orientation Not on file documented as of this encounter Miscellaneous Notes * Cerner Conversion Note - Erika ProviderMD - 11/05/2018 8:49 AM CDT Pre Procedure Adult Entered On: 11/05/2018 8:55 EDT Performed On: 11/05/2018 8:49 EDT by SRIRAM PATEL RN Height and Weight, Clinical Dosing Height Source : Stated Height Entry Format : [place] Height, Feet : 6 ft(Converted to: 183 cm, 72 Inch) Height, Inches : 1 Inch(Converted to: 0 ft 1 Inch, 2.54 cm) Clinical Height : 185.42 cm Weight Source : Standing scale Weight Entry Format : [place] Clinical Dosing Weight : 77.27 kg Weight, Pounds : 170 lb Body Surface Area (BSA) : 2.01 m2 Body Mass Index : 22.5 kg/m2 [place] Body Weight : 79 kg SRIRAM PATEL RN - 11/05/2018 8:49 EDT Health Histories Smoking Status : Never (less than 100 in lifetime; none in last 30 days) Smokeless Tobacco Status : Never SRIRAM PATEL RN - 11/05/2018 8:49 EDT Social History (As Of: 11/05/2018 08:55:48 EDT) Tobacco: Smoking Status Never smoker. (Last Updated: 04/16/2017 10:10:58 EDT by ADRIANA YOUNG RN) Alcohol: Alcohol Use History No. Use in Last 12 Months: No. (Last Updated: 04/16/2017 10:11:06 EDT by ADRIANA YOUNG RN) Substance Abuse: Drug Use Hx: No. Use in Last 12 Months: No. (Last Updated: 04/16/2017 10:11:23 EDT by ADRIANA YOUNG RN) Infectious Disease History Infectious Disease History : Chicken pox/Shingles, Measles, Mumps Fever/Chills Last 48 Hours : No Travel To Reg[place] with Travel Advisories : No Travel Outside [place] Within Last 30 Days : No Contact With Traveler to Advisory Region : No Tuberculosis Symptoms : None SRIRAM PATEL RN - 11/05/2018 8:49 EDT Anesthesia/Transfusion History Family History of Anesthesia Reaction : No prior transfusion(s) Blood Transfusion Acceptable to Patient : Yes Transfusion History : Prior anesthesia without reaction Family History of Anesthesia Reaction : None SRIRAM PATEL RN - 11/05/2018 8:49 EDT Functional Assessment Living Situation : Home Patient Lives With : Spouse Persons Assisting Patient at Home : Spouse Current Daily Living Assistance : None Mobility Assistance Prior to Admission : Independent Current Home Treatments : None Professional Skilled Services : None SRIRAM PATEL RN - 11/05/2018 8:49 EDT Psychosocial History Does Someone Depend on You for Care? : No Do You Have a History of the Following? : Patient denies history Currently in Unsafe Situation : No Tried to Harm Yourself in the Past? : No Thoughts of Harming/Killing Yourself : No SRIRAM PATEL RN - 11/05/2018 8:49 EDT Advance Directive Patient has Advance Directive *Q : No, patient refuses Advance Directive information SRIRAM PATEL RN - 11/05/2018 8:49 EDT Spiritual/Cultural Needs Significant Loss/Crisis in Past 3 Years : No Any Spiritual/Cultural Needs or Requests : No Oriental Orthodox Preference : Evangelical SRIRAM PATEL RN - 11/05/2018 8:49 EDT Teaching/Learning Assessment Barriers To Learning : None evident Individuals Taught : Patient Learning Style Preferences Patient : Verbal explanation SRIRAM PATEL RN - 11/05/2018 8:49 EDT Education Topics, Periop Preadmission Perioperative Education Grid IV's : Verbalizes understanding NPO Status/Directions : Verbalizes understanding Responsible Adult : Verbalizes understanding SRIRAM PATEL RN - 11/05/2018 8:49 EDT General Info Arrived From : Home Mode of Arrival on Unit : Ambulatory Legal Guardian : Son Want Family/Rep/Phys Notified of Admit : No Emergency Contact #1 : Dami Emergency Contact #1 Emergency Contact #1 Relationship : son Emergency Contact #2 : Connie Emergency Contact #2 Emergency Contact #2 Relationship : spouse Chief Complaint : Here for cardiac cath Information Obtained From : Patient Primary Language : Singaporean Preferred Communication Mode : Verbal Communication Barrier : None Objects to Sharing Info w Family : No SRIRAM PATEL RN - 11/05/2018 8:49 EDT Vital Measurements Temperature Source : Temporal artery scanning Temperature Mode : Fahrenheit Temperature, Fahrenheit : 98.2 Deg F Clinical Temperature, C : 36.8 Deg C Pulse Method : Non-Invasive BP Device Peripheral Pulse Rate : 72 bpm Respiratory Rate : 14 Breaths/Min Blood Pressure Location : Arm, right upper Blood Pressure Source : Non-Invasive BP Device Systolic Blood Pressure : 184 mmHg (HI) Diastolic Blood Pressure : 90 mmHg Oxygen Saturation : 98 % Oxygen Therapy Mode : Room air SRIRAM PATEL RN - 11/05/2018 8:49 EDT Sleep Apnea Risk Assmt Hx of [...] Sleep Apnea Risk Level Score : 5 SRIRAM PATEL RN - 11/05/2018 8:49 EDT Aiden Scale Aiden Sensory Perception : No impairment Aiden Moisture : Rarely moist Aiden Activity : Walks occasionally Aiden Mobility : No limitation Aiden Nutrition : Adequate Aiden Friction and Shear : Potential problem Aiden Score : 20 SRIRAM PATEL RN - 11/05/2018 8:49 EDT Oxygen Therapy Oxygen Therapy Mode : Room air SRIRAM PATEL RN - 11/05/2018 8:49 EDT Pain Assessment Pain Scale Used : 0-10 Scale SRIRAM PATEL RN - 11/05/2018 8:49 EDT Fall Risk Scales ABCs Fall Injury Risk Identification : None DECKER Hx Falls Immediate/Within 3 Months : No [place]cker Secondary Diagnosis : No DECKER Use of Ambulatory Aid : None DECKER IV Therapy or IV Access : Yes [place] Gait/Transferring : Normal, bedrest, immobile [place] Mental Status : Oriented to own ability [place] Fall Risk Score : 20 DECKER Fall Scale Risk Level : 0-24 Low Risk [place] Fall Interventions : Adequate lighting, Bed in low position, Hourly comfort/safety rounds, Non-slip footwear, Personal items within reach, Room free of clutter/spills, Upper side-rails up, Wheels locked, Wires/Cords secured SRIRAM PATEL RN - 11/05/2018 8:49 EDT Valuables and Belongings Valuables and Belongings : Clothing, Personal items, Medications, No comfort items, No jewelry, No assistive devices, No respiratory devices Clothing : Common streetwear Clothing Disposition : Bedside Personal Items : Reyes, Credit cards, Wallet Personal Items Disposition : With family Medication Disposition : With family Medication Brought With Patient : Yes SRIRAM PATEL RN - 11/05/2018 8:49 EDT Pain Scale Intensity : 0 SRIRAM PATEL RN - 11/05/2018 8:49 EDT Image 4 - Images currently included in the form version of this document have not been included in the text rendition version of the form. Kavin Coma Kavin Best Motor Response : Obey commands [place] Best Verbal Response : Oriented Kavin Eye Opening Response : Spontaneous [place] Coma Score : 15 SRIRAM PATEL RN - 11/05/2018 8:49 EDT documented in this encounter Plan of Treatment Not on file documented as of this encounter Visit Diagnoses Not on filedocumented in this encounter
--- OUTSIDE RECORDS SUMMARY | 2025-02-23 11:54 | XMS_ITS | Data Portability ---
Author Organization LIZ XIMENA Leavitt [facility] Address [address] [facility] [address] [place] [address] Assessment Encounter Date Assessment Date Assessment LastModified by Organization Details LastModified Time 07/01/2023 07/01/2023 PREOPERATIVE DIAGNOSIS: Bladder calculus, 13 mm. POSTOPERATIVE DIAGNOSIS: Bladder calculus, 13 mm with BPH. PROCEDURE: Cystolitholapaxy with dilation of distal urethra. 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 SURGEON: Cong Villasenor MD ANESTHESIA: General. DRAINS: 18-Serbian urethral Michele catheter. INDICATIONS: Patient with previous history of meatal stenosis. He recently presented with a finding of a 13-mm bladder calculus. We discussed removing this calculus to hopefully prevent infection and irritative symptoms. He understands and wishes to proceed. OPERATIVE NOTE: After satisfactory general anesthesia, he was carefully placed in the lithotomy position. He has previously had as stroke and has some contracture, but was able to place him in lithotomy in a very conservative manner. His adduction was carefully placed. Genitalia were prepped and draped in normal fashion. A 22-Serbian cystoscopy sheath was introduced. Pendulous urethra revealed some difficulty introducing at the meatus. I then used the Cheyenne sounds to dilate the distal urethra up to 24-Serbian. I then easily advanced down the urethra. The prostate was mildly obstructing. He had a slight median lobe. Upon entering the bladder, a single stone was seen. A 500 micron fiber was used to fragment the stone into tiny material, which was then irrigated free with a Urobag device. He had some slight bleeding at his bladder neck and I elected to place a Michele catheter considering his urethral dilation as well. I placed the catheter without difficulty, and placed 30 mL in the balloon. Clear urine emitted. It was placed to a leg bag. He was converted back to supine position, transferred to postop recovery room in stable condition. He will follow up early next week for ureteral catheter removal. Stone fragments were sent for analysis. [email or web address] Not available 07/02/2023 05:09:25 Plan of Treatment Reminders Order Date Submit Date Provider Last Modified By Organization Details Last Modified Time Details Appointments None recorded. Lab urinalysis , dipstick, auto 2018 019 [facility] Extended Services With [facility], [address], [address] [place] [address], [address], 9 08:09:21 urinalysis , dipstick, auto 2018 019 [facility] With [facility], [address], [place] [address], [place], [address], 9 14:02:35 Referral None recorded. Procedures None recorded. Surgeries None recorded. Imaging None recorded. Medication Orders trospium ER 60 mg capsule,ex tended release 24 hr 2022 023 [facility] [address] [place], [address], 3 14:33:52 alfuzosin ER 10 mg tablet,ext ended release 24 hr 2018 019 [facility] [address] [place], [address], 9 15:32:14 Patient TargetsNo targets recorded. Patient Instructions Encounter Date Encounter Id Patient Instructions Last Modified By Organization Details Last Modified Time 05/16/2019 [id number] At this point given the patient's comorbid status we would like to manage him medically if possible. I'm encouraged by his improvement with alpha yandy therapy. If he does not improve in not from medical therapy we may consider bladder outlet surgery. If he wanted to endeavor into bladder outlet surgery we would need to perform urodynamics given his history of stroke. He will follow-up in 6 weeks. [email or web address] Not available 05/16/2019 14:03:13 06/27/2019 [id number] continue medical therapy [email or web address] Not available 06/29/2019 08:09:20 Reason for Referral None Reported. Results Created Date Observation Date Name Description Value Unit Range Abnormal Flag Note LastModifiedBy Organization Detail LastModifiedTime 06/27/2006/27/2019 urina lysis , dipst ick, auto Unknown Analyte Yellow Not Available [facility] Extended Services With [address], [place], [address], 06/27/2019 15:52:46 06/27/2006/27/2019 urina lysis , dipst ick, auto Unknown Analyte Clear Not Available [facility] With [place] [address] [facility] [address], [place], [address], 06/27/2019 15:52:46 06/27/20 19 06/27/2019 urina lysis , dipst ick, auto Unknown Analyte 1.010 Not Available [facility] With [place] [address], [place], [address], 06/27/2019 15:52:46 06/27/20 19 06/27/2019 urina lysis , dipst ick, auto Unknown Analyte 1.003 - 1.035 Not Available [facility] [address], [place], [address], 06/27/2019 15:52:46 06/27/20 19 06/27/2019 urina lysis , dipst ick, auto Unknown Analyte 7.0 Not Available [facility] With [place] [address] [facility] [address], [place], [address], 06/27/2019 15:52:46 06/27/20 19 06/27/2019 urina lysis , dipst ick, auto Unknown Analyte 5.0 - 8.0 Not Available [facility] [place] Extended Services With [facility] [address], [place], [address], 06/27/2019 15:52:46 06/27/20 19 06/27/2019 urina lysis , dipst ick, auto Unknown Analyte Negati ve Not Available [facility] [place] Extended Services With [facility] [address], [place], [address], 06/27/2019 15:52:46 06/27/20 19 06/27/2019 urina lysis , dipst ick, auto Unknown Analyte Negati ve Not Available [facility] [place] Extended Services With [facility] [address], [place], [address], 06/27/2019 15:52:46 06/27/20 19 06/27/2019 urina lysis , dipst ick, auto Unknown Analyte Negati ve Not Available [facility] [place] Extended Services With [facility] [address], [place], [address], 06/27/2019 15:52:46 06/27/2006/27/2019 urina lysis , dipst ick, auto Unknown Analyte Negati ve Not Available [facility] [place] Extended Services With [facility] [address], [place], [address], 06/27/2019 15:52:46 06/27/20 19 06/27/2019 urina lysis , dipst ick, auto Unknown Analyte Negtiv e Not Available [facility] [place] Extended Services With [facility] [address], [place], [address], 06/27/2019 15:52:46 06/27/20 19 06/27/2019 urina lysis , dipst ick, auto Unknown Analyte Negati ve - Trace Not Available [facility] [place] Extended Services With [facility] [address], [place], [address], 06/27/2019 15:52:46 06/27/20 19 06/27/2019 urina lysis , dipst ick, auto Unknown Analyte Normal Not Available [facility] [place] Extended Services With [facility] [address], [place], [address], 06/27/2019 15:52:46 06/27/20 19 06/27/2019 urina lysis , dipst ick, auto Unknown Analyte Normal Not Available [facility] [place] Extended Services With [facility] [address], [place], [address], 06/27/2019 15:52:46 06/27/20 19 06/27/2019 urina lysis , dipst ick, auto Unknown Analyte Negati ve Not Available [facility] [place] Extended Services With [facility] [address], [place], [address], 06/27/2019 15:52:46 06/27/20 19 06/27/2019 urina lysis , dipst ick, auto Unknown Analyte Negati ve Not Available [facility] [place] Extended Services With [facility] [address], [place], [address], 06/27/2019 15:52:46 06/27/20 19 06/27/2019 urina lysis , dipst ick, auto Unknown Analyte Normal Not Available [facility] [place] Extended Services With [facility] [address], [place], [address], 06/27/2019 15:52:46 06/27/20 19 06/27/2019 urina lysis , dipst ick, auto Unknown Analyte Normal - 1mg/dl Not Available [facility] [place] Extended Services With [facility] [address], [place], [address], 06/27/2019 15:52:46 06/27/2006/27/2019 urina lysis , dipst ick, auto Unknown Analyte Negati ve Not Available [facility] [place] [facility] Services With [facility] [address], [place], [address], 06/27/2019 15:52:46 06/27/2006/27/2019 urina lysis , dipst ick, auto Unknown Analyte Negati ve Not Available [facility] [place] [facility] Services With [facility] [address], [place], [address], 06/27/2019 15:52:46 06/27/20 19 06/27/2019 urina lysis , dipst ick, auto Unknown Analyte Negati ve Not Available [facility] [place] [facility] With [facility] [address], [place], [address], 06/27/2019 15:52:46 06/27/2006/27/2019 urina lysis , dipst ick, auto Unknown Analyte Negati ve Not Available [facility] [place] [facility] Services With [facility] [address], [place], [address], 06/27/2019 15:52:46 06/27/20 19 06/27/2019 urina lysis , dipst ick, auto Unknown Analyte Clean Catch Not Available [facility] [place] [facility] Services With [facility] [address] [facility] [address], [place], [address], 06/27/2019 15:52:46 06/27/20 19 06/27/2019 urina lysis , dipst ick, auto Unknown Analyte Automa jamshid Not Available [facility] [place] [facility] Services With [facility] [address] [facility] [address], [place], [address], 06/27/2019 15:52:46 05/16/20 19 05/16/2019 urina lysis , dipst ick, auto Unknown Analyte Yellow Not Available [facility] [place] [facility] [address] [facility] [address], [place], [address], 05/16/2019 13:23:16 05/16/20 19 05/16/2019 urina lysis , dipst ick, auto Unknown Analyte Clear Not Available [facility] [place] [facility] [address] [facility] [address], [place], [address], 05/16/2019 13:23:16 05/16/20 19 05/16/2019 urina lysis , dipst ick, auto Unknown Analyte 1.020 Not Available [facility] With [facility] [address] [facility] [address], [place], [address], 05/16/2019 13:23:16 05/16/2005/16/2019 urina lysis , dipst ick, auto Unknown Analyte 1.003 - 1.035 Not Available [facility] [place] Extended Services With [facility] [address] [facility] [address], [place], [address], 05/16/2019 13:23:16 05/16/20 19 05/16/2019 urina lysis , dipst ick, auto Unknown Analyte 5.0 Not Available [facility] [place] [facility] [address] [facility] [address], [place], [address], 05/16/2019 13:23:16 05/16/20 19 05/16/2019 urina lysis , dipst ick, auto Unknown Analyte 5.0 - 8.0 Not Available [facility] [place] [facility] Services With [facility] [address], [place], [address], 05/16/2019 13:23:16 05/16/20 19 05/16/2019 urina lysis , dipst ick, auto Unknown Analyte Negati ve Not Available [facility] [place] [facility] With [facility] [address], [place], [address], 05/16/2019 13:23:16 05/16/20 19 05/16/2019 urina lysis , dipst ick, auto Unknown Analyte Negati ve Not Available [facility] [place] [facility] With [facility] [address], [place], [address], 05/16/2019 13:23:16 05/16/20 19 05/16/2019 urina lysis , dipst ick, auto Unknown Analyte Negati ve Not Available [facility] [place] [facility] With [facility] [address], [place], [address], 05/16/2019 13:23:16 05/16/20 19 05/16/2019 urina lysis , dipst ick, auto Unknown Analyte Negati ve Not Available [facility] [place] [facility] With [facility] [address], [place], [address], 05/16/2019 13:23:16 05/16/20 19 05/16/2019 urina lysis , dipst ick, auto Unknown Analyte Negtiv e Not Available [facility] [place] [facility] With [facility] [address], [place], [address], 05/16/2019 13:23:16 05/16/20 19 05/16/2019 urina lysis , dipst ick, auto Unknown Analyte Negati ve - Trace Not Available [facility] [place] [facility] With [facility] [address], [place], [address], 05/16/2019 13:23:16 05/16/20 19 05/16/2019 urina lysis , dipst ick, auto Unknown Analyte Normal Not Available [facility] With [facility] [address], [place], [address], 05/16/2019 13:23:16 05/16/20 19 05/16/2019 urina lysis , dipst ick, auto Unknown Analyte Normal Not Available [facility] [address], [place], [address], 05/16/2019 13:23:16 05/16/20 19 05/16/2019 urina lysis , dipst ick, auto Unknown Analyte 15 mg/dl (Sm) Not Available [facility] Extended Services With [facility] [address], [place], [address], 05/16/2019 13:23:16 05/16/20 19 05/16/2019 urina lysis , dipst ick, auto Unknown Analyte Negati ve Not Available [facility] Services With [facility] [address], [place], [address], 05/16/2019 13:23:16 05/16/20 19 05/16/2019 urina lysis , dipst ick, auto Unknown Analyte Normal Not Available [facility] [address], [place], [address], 05/16/2019 13:23:16 05/16/20 19 05/16/2019 urina lysis , dipst ick, auto Unknown Analyte Normal - 1mg/dl Not Available [facility] [place] [facility] Services With [facility] [address], [place], [address], 05/16/2019 13:23:16 05/16/20 19 05/16/2019 urina lysis , dipst ick, auto Unknown Analyte Negati ve Not Available [facility] [place] [facility] With [facility] [address], [place], [address], 05/16/2019 13:23:16 05/16/20 19 05/16/2019 urina lysis , dipst ick, auto Unknown Analyte Negati ve Not Available [facility] [place] [facility] With [facility] [address], [place], [address], 05/16/2019 13:23:16 05/16/20 19 05/16/2019 urina lysis , dipst ick, auto Unknown Analyte Negati ve Not Available [facility] [place] [facility] With [facility] [address], [place], [address], 05/16/2019 13:23:16 05/16/20 19 05/16/2019 urina lysis , dipst ick, auto Unknown Analyte Negati ve Not Available [facility] [place] [facility] With [facility] [address], [place], [address], 05/16/2019 13:23:16 05/16/20 19 05/16/2019 urina lysis , dipst ick, auto Unknown Analyte Clean Catch Not Available [facility] [place] [facility] With [facility] [address], [place], [address], 05/16/2019 13:23:16 05/16/20 19 05/16/2019 urina lysis , dipst ick, auto Unknown Analyte Automa jamshid Not Available [facility] [place] [facility] With [facility] [address], [place], [address], 05/16/2019 13:23:16 07/01/20 23 07/07/2023 STONE GERMAINE SIS composition SEE BELOW normal Calci um Oxala te Dihyd rate (Wedd ellit e) 15% Calci um Oxala te Monoh ydrat e (Whew ellit e) 70% Carbo stephany Apati te (Dahl lite) 15% See Note 1 Not Available [facility] [address] [place] [address], [address], 07/07/2023 18:14:54 07/01/2007/07/2023 STONE GERMAINE SIS weight 0.344 g normal Note 1 This test was devel oped and its germaine tical perfo rmanc e nadeem cteri stics have been deter mined by [facility]. It has not been clear ed or appro brayden by the FDA. This assay has been valid ated pursu ant to the CLIA regul ation s and is used for clini long purpo ses. Not Available [facility] [address] [place], [address], 07/07/2023 18:14:54 Result Notes None recorded. Problems Name Problem SNOMED Code Status Onset Date Resolution Date Notes Provider Name and Address Organization Details Recorded Time Lower urinary tract symptoms due to benign prostatic hypertrophy 7900393809478 1 Active 2018 LEYLA SHAH JR, MD [address] [place] [address], [address] , [facility] 9 11:50:21 Increased frequency of urination 870543181 Active 2018 LEYLA SHAH JR, MD [address] [place] [address], [address], [facility] 9 20:29:31 Nocturia 606075425 Active 2018 LEYLA SHAH JR, MD [address] [place] [address], [address], [facility] 9 20:29:35 Problem Notes None recorded. Procedures Surgical History Date Name Laterality Status Provider Name and Address Organization Details Recorded Time 03/02/20 19 Post Void Residual; Ultrasound completed Rima Ivory [facility] 03/02/2019 11:46:22 04/16/20 17 MEATOTOMY, EXCEPT IN INFANT (SURG) completed CONG VILLASENOR MD [address] [place] [address], [address], [facility] 04/29/2017 10:19:09 Heart Surgery completed Deseriee Flora [facility] 03/02/2019 11:35:52 cholecystectomy completed [facility] 05/19/2023 16:19:30 Hernia Repair completed [facility] 05/19/2023 16:19:41 Prostate Surgery completed [facility] 05/19/2023 16:19:58 Urinary Bladder completed [facility] 05/19/2023 16:20:09 Imaging Results None recorded. Procedure Notes None recorded. Medical Equipment None Reported. Allergies No known drug allergies Medications Name Sig Start Date Stop Date Status Note LastModified by Organization Details LastModified Time losartan 50 mg tablet Take 1 tablet every day by oral route. active Not Available Not Available No t Available atorvastat in 20 mg tablet Take 1 tablet every day by oral route. active Not Available Not Available No t Available Multiple Vitamin capsule Daily active Duration: 30 days;Frequ ency: daily;Medi cation Descriptio n: multivitam in; Dosage:1; Route:oral ; refills:3; Quantity:1 00 capsule Not Available Not Available Not Available Synthroid 100 mcg tablet Take 1 tablet every day by oral route. active Not Available Not Available No t Available sucralfate (bulk) powder active Not Available Not Available Not Available tamsulosin 0.4 mg capsule Take 1 capsule every day by oral route for 90 days. 2019 active Not Available Not Available Not Avai lable Micardis 80 mg tablet Daily active Frequency: daily;Medi cation Descriptio n: telmisarta n; Dosage:1; Route:oral ; refills:5; Quantity:3 0 tablet Not Available Not Available Not Available ropinirole 2 mg tablet Take 1 tablet 3 times a day by oral route. active Not Available Not Available No t Available pantoprazo le 40 mg tablet,del ayed release Take 1 tablet every day by oral route. active Not Available Not Available No t Available cefuroxime axetil 500 mg tablet Take 1 tablet every 12 hours by oral route. 2022 active son requests Rx changed to [facility] as pt will not be returning to [facility], so Rx called to new pharmacy per request Not Available Not Available Not Available dutasterid e 0.5 mg capsule Take 1 capsule by mouth once daily 2019 active Not Available Not Available Not Avai lable alfuzosin ER 10 mg tablet,ext ended release 24 hr Take 1 tablet every day by oral route. 2018 active Not Available Not Available Not Avai lable Vitamin C active Medication Descriptio n: ascorbic acid; refills:0 Not Available Not Available Not Available vitamin B complex active Medication Descriptio n: multivitam in; refills:0 Not Available Not Available Not Available Vitamin D3 Daily active Frequency : daily;Medi cation Descriptio n: cholecalci ferol; Route:oral ; refills:0 Not Available Not Available Not Available Asprin Ec Low Dose active Not Available Not Available Not Available trospium ER 60 mg capsule,ex tended release 24 hr Take 1 capsule every day by oral route. 2022 active Not Available Not Available Not Avai lable levothyrox ine 50 mcg capsule Take 1 capsule every day by oral route. active Not Available Not Available No t Available loratadine 10 mg capsule Take 1 capsule every day by oral route. active Not Available Not Available No t Available metoprolol succ 25 mg-hydroch lorothiazi de 12.5 mg tablet,ext .rel 24 hr Take 1 tablet every day by oral route. active Not Available Not Available No t Available Vitals Date Recorded Body height Body mass index (BMI) Body weight Provider Name and Address Organization Details Last Updated DateTime 05/16/2019 185.42 cm 21.1 kg/m2 66089.78 [facility] 05/16/2019 13:22:42 Date Recorded Body height Systolic And Diastolic Provider Name and Address Organization Details Last Updated DateTime 06/27/2019 185.42 cm 143/77 mm[Hg] [facility] 06/27/2019 15:52:00 Date Recorded Body height Body mass index (BMI) Body weight Provider Name and Address Organization Details Last Updated DateTime 07/08/2023 182.88 cm 29.8 kg/m2 66030.32 g John Emanuel [facility] 07/08/2023 13:21:37 Social History Question Answer Notes LastModified by Organizat ion Details LastModified Time Tobacco Smoking Status [facility]2019 11:35:35 Marital Status Informatio n not available 03/02/2019 What Was The Date Of Your Most Recent Tobacco Screening? 03/02/2019 Information not available 10/11/2019 What Is Your Relationship Status? [email or web address] Information not available 05/19/2023 Has Tobacco Cessation Counseling Been Provided? No [email or web address] Information not available 05/19/2023 Sex: Unknown Functional Status Question Answer Note LastModified by Organizat ion Details LastModified Time Do you use any illicit or recreational drugs? No [email or web address] Information not available 05/19/2023 Do you or have you ever used any other forms of tobacco or nicotine? No [email or web address] Information not available 05/19/2023 What is your level of alcohol consumption? 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 Family History Relationship Description Onset Age of this Age Resolved Age Notes LastModified by Organization Details LastModified Time Unspecified Relation Family history of malignant neoplasm colon cancer [id number] Not available 05/19/2023 16:18:41 Unspecified Relation Kidney stone paulina Not available 05/2019 11:35:27 Medical History Condition Response Other Y Arthritis Y Cancer Y Stroke Y High Cholesterol Y High PSA Y Kidney Disease Y Heart Attack (CA) Y Urinary Tract Infection Y Cardiac Disease Y Hypertension Y Past Encounters Encounter ID Performer Location Encounter Start Date Encounter Closed Date Diagnosis/Indication Diagnosis SNOMED-CT Code Diagnosis ICD10 Code Diagnosis Note [id number] LEYLA SHAH JR, MD [address] FLO[address] [place] [id number] 5 03/02/2019 11:00:32 03/07/2019 10:05:38 Lower urinary tract symptoms due to benign prostatic hypertrophy [id number] 9101 N40.1 Increased frequency of urination 462551003 R35.0 Nocturia [id number] R35.1 [id number] LEYLA SHAH JR, MD [facility] [address] [facility] [address] [place] [id number] 8 05/16/2019 13:05:53 05/18/2019 08:09:55 Lower urinary tract symptoms due to benign prostatic hypertrophy [id number] 9101 N40.1 [id number] LEYLA SHAH JR, MD [facility] N EXTENDED [facility] [address] [facility] [address] [place] [id number] [id number] 06/27/2019 14:58:19 06/30/2019 11:19:02 Lower urinary tract symptoms due to benign prostatic hypertrophy [id number] 9101 N40.1 Nocturia 161939012 R35.1 [id number] MD JONES [facility] [address] [place] [phone] 05/19/2023 14:49:48 05/19/2023 16:47:49 Urinary bladder stone [id number] N21.0 follow upp 2 months , earlier if necessary [id number] CONG VILLASENOR MD SURGERY SCHEDULE [address] [place] [address] 07/01/2023 10:05:11 07/01/2023 10:05:30 [id number] MD JONES [facility] [address] [place], [place] [phone] 07/08/2023 13:06:58 07/08/2023 14:09:02 Urinary bladder stone [id number] N21.0 follow upp 2 months , earlier if necessary, he will complete his antibiotic s Increased frequency of urination 240751045 R35.0 as above Health Concerns Section Related Observation LastModified by Organization Detai ls LastModified Time None Recorded Concern Status LastModified by Organization Details LastModified Time None Recorded Advance Directives Directive None Recorded Payers Insurance Date Sequence Insurance Name Policy Number Policy Mullen Covered Member ID Mullen Member ID Guarantor Name 05/19/2023 1 [place] Jorge Villasenor [id number] Jorge Pickering Fernando 09/06/2023 1 [employer] (MEDICARE REPLACEMENT/A DVANTAGE - PPO) Jorge Villasenor [id number] Jorge Villasenor Notes Date Note Type Note Provider Name and Address Organization Details Recorded Time 05/16/2019 text/html Patient is in to day for evaluation of frequency and urgency with diminished urine stream. He is a pleasant 78-year-old gentleman who is been treated with finasteride for BPH for years but is never been on alpha blockade. He estimates he has nocturia every 45 minutes and significant urgency and frequency during the day with occasional urgency incontinence. In November 2018 he underwent heart surgery with aortic valve replacement and suffered a stroke at that time. His urinary symptoms have worsened. He does have a history of bladder stone which was removed 2-3 years ago cystoscopically. He does report hypotensive side effects with Flomax. He denies hematuria and dysuria. Patient has been on Uroxatral for the last 6 weeks with improved lower urinary tract symptoms and no side effects. He continues to have frequency and urgency and is asking about considering bladder outlet surgery. He was evaluated by another urologist in the interim. Renal ultrasound in March 2019 is negative. 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 Uroflow shows voided volume of 151 mL, peak flow rate of 9.3 average flow rate of 9.3. LEYLA SHAH JR, MD [address] [place], [address], [facility] 05/16/2019 14:03:31 06/27/2019 text/html Patient is in to day for evaluation of frequency and urgency with diminished urine stream. He is a pleasant 78-year-old gentleman who is been treated with finasteride for BPH for years but is never been on alpha blockade. He estimates he has nocturia every 45 minutes and significant urgency and frequency during the day with occasional urgency incontinence. In November 2018 he underwent heart surgery with aortic valve replacement and suffered a stroke at that time. His urinary symptoms have worsened. He does have a history of bladder stone which was removed 2-3 years ago cystoscopically. He does report hypotensive side effects with Flomax. He denies hematuria and dysuria. He was evaluated by another urologist . Renal ultrasound in March 2019 is negative. 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 Uroflow shows voided volume of 151 mL, peak flow rate of 9.3 average flow rate of 9.3. patient is now treated with Avodart and Uroxatral. He has noticed significant improvement in lower urinary tract symptoms and does not think bladder outlet surgery is needed at this time. He wishes to continue with medical therapy. He does still have problems with nocturia but this is somewhat improved. LEYLA SHAH JR, MD [address] [place] [address], [phone], [facility] 06/29/2019 08:09:36 05/19/2023 text/html pt with h/o meat al stenosis and previous bladder stones. Since last visit with me he has had repair of ascending aortic and cabg during which he suffered a stroke. He has had some recent hematuria and found to has 13mm bladder stone. He does have urgency and discussed may be due to stone and or stroke. He is in wheel chair and has considerable weakness and unsteadiness. here today with his son. discussed stone removal would require anesthesia. certain risks associated with that for him. HE will consider it. HE had a Resume treatment in [place] about 3 years ago. I reviewed ct scan disc for [facility] CONG VILLASENOR MD [address] [place] [address] [place], [address], [facility] 05/21/2023 11:32:44 07/08/2023 text/html Patient is here to follow-up 1 week after cystoscopy and laser of bladder stone. He has a Michele catheter in place as he had urethral dilation for some meatal stenosis. Catheter was removed without difficulty. He has had previous history of stroke and has some issues with urinary urgency and frequency. We discussed a trial of trospium. His prostate did not appear to be significantly obstructing had recent cystoscopy. CONG VILLASENOR MD [facility] [place], [address], [facility] 07/08/2023 14:34:03
--- OUTSIDE RECORDS SUMMARY | 2025-02-23 11:54 | XMS_ITS | Encounter Summary ---
Author Organization [employer] ([place], [place], [place], [place]) Address [address] [place] [address] Care Team Providers Care Java Application Developer Name Role Phone Unavailable Primary Care Provider Unavailabl e Encounter Details Date Type Department Care Team (Late st Contact Info) Description 11/27/2018 Transcribed Document [facility] [place] [address] [place] [address] ProviderErika MD [address] [place] [address] Social History Tobacco Use Types Packs/Day Years Used Date Smoking Tobacco: Never Assessed Sex and Gender Information Value Date Recorded Sex Assigned at Not on file Legal Sex Male 5:03 PM CDT Gender Identity Not on file Sexual Orientation Not on file documented as of this encounter Miscellaneous Notes * Cerner Conversion Note - Historical ProviderMD - 11/27/2018 5:00 AM CDT Chart Check - Review Order Profile Entered On: 11/27/2018 3:00 EDT Performed On: 11/27/2018 5:00 EDT by Robyn Benitez, RN Chart Check Chart Reviewed Date and Time : 11/27/2018 3:00 EDT All Active Orders Reviewed : Yes Robyn Benitez, RN - 11/27/2018 3:00 EDT documented in this encounter Plan of Treatment Not on file documented as of this encounter Visit Diagnoses Not on filedocumented in this encounter
--- OUTSIDE RECORDS SUMMARY | 2025-02-23 11:54 | XMS_ITS | Encounter Summary ---
Author Organization [employer] ([place], [place], [place], [place]) Address [address] [place] [address] Care Team Providers Care Leather Case Finisher Name Role Phone Unavailable Primary Care Provider Unavailabl e Encounter Details Date Type Department Care Team (Late st Contact Info) Description 11/16/2018 Transcribed Document [facility] [place] Family Medicine [address] [place] [address] ProviderErika MD [address] [place] [address] Social History Tobacco Use Types Packs/Day Years Used Date Smoking Tobacco: Never Assessed Sex and Gender Information Value Date Recorded Sex Assigned at Not on file Legal Sex Male 5:03 PM CDT Gender Identity Not on file Sexual Orientation Not on file documented as of this encounter Miscellaneous Notes * Cerner Conversion Note - Erika Jose MD - 11/16/2018 8:44 AM CDT DATE OF PROCEDURE:11/16/2018 PREOPERATIVE DIAGNOSIS(ES): Ascending aortic aneurysm. POSTOPERATIVE DIAGNOSIS(ES): Ascending aortic aneurysm PROCEDURE: 1. Left radial arterial line. 2. Lak[place]-Jovanna catheter. SURGEON: Porfirio Gaxiola IV, MD Procedure performed by: Saud Oliver PA-C INDICATIONS: The patient is a 78-year-old male, who is being brought to the operating room today for repair of an ascending aortic aneurysm with possible aortic valvular replacement, requiring hemodynamic monitoring lines. Also, the patient has single-vessel coronary artery disease and will have a RUSSELL graft applied. DESCRIPTION OF PROCEDURE: The patient was brought into the operating room on 11/16/2018. His left wrist was prepped and draped in sterile fashion. An Arrow introducer was placed within the left radial artery receiving good systemic blood pressure tracings. We then went onto the left subclavian area, which was prepped and draped in sterile fashion. A guidewire was placed within the left subclavian vein. A MAC introducer was applied over guidewire, then a [place]-Jovanna catheter was advanced down MAC introducer to pulmonary artery, pulmonary artery wedge position. The patient tolerated both procedures well without any blood loss. Dictated By: Saud Oliver PA-C For Porfirio Gaxiola IV, M.D. Richard Floyd, IV, M.D. Dict: 11/16/2018 08:44:48 Trans: 11/16/2018 12:16:26 CC1: Porfirio Gaxiola IV, M.D. documented in this encounter Plan of Treatment Not on file documented as of this encounter Visit Diagnoses Not on filedocumented in this encounter
--- OUTSIDE RECORDS SUMMARY | 2025-02-23 11:54 | XMS_ITS | Encounter Summary ---
Author Organization [employer] ([place], [place], [place], [place]) Address [address] [place] [address] Care Team Providers Care Senior Product Development Scientist Name Role Phone Unavailable Primary Care Provider Unavailabl e Encounter Details Date Type Department Care Team (Late st Contact Info) Description 11/26/2018 Transcribed Document [facility] [place] [address] [place] [address] ProviderErika MD [address] [place], [place] [id number] Social History Tobacco Use Types Packs/Day Years Used Date Smoking Tobacco: Never Assessed Sex and Gender Information Value Date Recorded Sex Assigned at Not on file Legal Sex Male 5:03 PM CDT Gender Identity Not on file Sexual Orientation Not on file documented as of this encounter Miscellaneous Notes * Cerner Conversion Note - Erika Jose MD - 11/26/2018 11:29 AM CDT Patient: DOTTIE VILLASENOR Age: 78 years Sex: Male : 1940 Associated Diagnoses: CAD (coronary artery disease), [place] coronary artery; Thrombocytopenia; Coronary artery disease; HTN (hypertension); Hypothyroidism; Aortic insufficiency; RLS (restless legs syndrome); Thoracic ascending aortic aneurysm; Right MCA CVA (cerebral vascular accident) Author: GISSEL ZHANG PA Basic Information POD#10 S/P Resection and [...] swelling, up to chair, eating without difficulty Review of Systems Constitutional: Weakness. Respiratory: No shortness of breath. Cardiovascular: No chest pain. Neurologic: Alert and oriented X4, left side paralysis. Health Status Allergies: Allergies (2) Active Reaction No Known Allergies None Documented No Known Medication Allergies None Documented Physical Examination Intake and Output 24 hour intake: Total 7,250 ml 24 hour output: Total 120 ml VS/Measurements Vital Measurements 11/26/2018 9:59 EDT Heart Rate, Apical 96 bpm 11/26/2018 9:44 EDT Temperature, Fahrenheit 98.3 Deg F Systolic Blood Pressure 89 mmHg LOW Diastolic Blood Pressure 55 mmHg LOW 11/26/2018 8:33 EDT Oxygen Therapy Mode Room air 11/26/2018 5:41 EDT Oxygen Saturation 96 % General: Alert and oriented, No acute distress. Respiratory: Respirations are non-labored. Breath sounds: Diminished. Cardiovascular: Normal rate, 87 beats per minute, Regular rhythm, S1, S2, left upper extremity swelling - improved today. Integumentary: Warm, Dry, [place], incision is C/D/I. Neurologic: Alert, left sided paralysis. Orientation: To person, To place, To time. Psychiatric: Cooperative, Appropriate mood & affect. Review / Management Results review: NOV 26 04:46 136 L 101 H 24 / 105 4.2 29 0.80 \ NOV 26 04:46 \ L 12.6 / H 11.2 H 372 / L 38.1 \ Blood Gases (Current Encounter/Past 24 Hours) No Blood Gas Results Found (Past 24 Hours) Coagulation Results (Current Encounter/Past 24 Hours) PT 11.8 Second(s) 11/26/2018 05:49 PTT 55.8 Second(s) HI 11/26/2018 11:12 INR 1.1 11/26/2018 05:49 . Impression and Plan Plan: 11/17/18 -POD#1 [...] of discharge- CM has sent information to [facility] -Transfer to [facility] 11/24/18 -POD#8 -Awaiting transfer to [facility] -Awaiting response from [facility] 11/25/18 -left upper extremity venous doppler - doppler this am positive for LUE DVT - will start coumadin and heparin bridge -awaiting [facility] 11/26/18 -Heparin drip and coumadin for LUE DVT Left arm swelling improved today INR 1.1 today, INR goal 2-3 Possibly transfer to [facility] this weekend EF 55-60% per echo 11/16/18 DVT Prophylaxis: SCDs Diagnosis CAD (coronary artery disease), [place] coronary artery - Admitting, Medical. Thrombocytopenia - [...]
--- OUTSIDE RECORDS SUMMARY | 2025-02-23 11:54 | XMS_ITS | Encounter Summary ---
Author Organization [employer] ([place], [place], [place], [place]) Address [address] [place] [address] Care Team Providers Care E Commerce Director Name Role Phone Unavailable Primary Care Provider Unavailabl e Encounter Details Date Type Department Care Team (Late st Contact Info) Description 11/27/2018 Transcribed Document [facility] [place] Family Medicine [address] [place] [address] ProviderErika MD [address] [place] [address] Social History Tobacco Use Types Packs/Day Years Used Date Smoking Tobacco: Never Assessed Sex and Gender Information Value Date Recorded Sex Assigned at Not on file Legal Sex Male 5:03 PM CDT Gender Identity Not on file Sexual Orientation Not on file documented as of this encounter Miscellaneous Notes * Cerner Conversion Note - Historical ProviderMD - 11/27/2018 5:00 PM CDT Chart Check - Review Order Profile Entered On: 11/27/2018 19:40 EDT Performed On: 11/27/2018 17:00 EDT by Nida Thomas RN Chart Check Chart Reviewed Date and Time : 11/27/2018 19:40 EDT Powerplans Initiated/Discontinued as Appropriate : Yes All Active Orders Reviewed : Yes Nida Thomas RN - 11/27/2018 19:40 EDT documented in this encounter Plan of Treatment Not on file documented as of this encounter Visit Diagnoses Not on filedocumented in this encounter
--- OUTSIDE RECORDS SUMMARY | 2025-02-23 11:54 | XMS_ITS | Encounter Summary ---
Author Organization [email or web address] ([place], [place], [place], [place]) Address [address] [place] [address] Care Team Providers Care Efficiency Engineer Name Role Phone Unavailable Primary Care Provider Unavailabl e Encounter Details Date Type Department Care Team (Late st Contact Info) Description 11/28/2018 Transcribed Document [facility] [place] [address] [place] [address] ProviderErika MD [address] [place] [address] Social History Tobacco Use Types Packs/Day Years Used Date Smoking Tobacco: Never Assessed Sex and Gender Information Value Date Recorded Sex Assigned at Not on file Legal Sex Male 5:03 PM CDT Gender Identity Not on file Sexual Orientation Not on file documented as of this encounter Miscellaneous Notes * Cerner Conversion Note - Erika Jose MD - 11/28/2018 11:04 AM CDT DATE OF CONSULTATION: 11/28/2018 CONSULTING PHYSICIAN: CT Surgeon. REASON FOR CONSULTATION: For evaluation of melena. HISTORY OF PRESENT ILLNESS: This is a 78-year-old patient with multiple medical problems, history of CAD, hypertension, and hypothyroidism, who underwent CABG and thoracic aortic aneurysm repair on the , and developed an acute infarct, seen on MRI, and he was on warfarin and heparin drip. At 3:00 in the morning, he had a black tarry stool. So, heparin was discontinued at 3:00 in the morning. His PTT had come back normal. His PT was 2.0 this morning. Coumadin was held. His blood pressure was 70. Gave him fluid challenge. It came back to 100. I was consulted this morning at around 8:39 for evaluation for his GI bleeding. MEDICATIONS: 1. Tylenol. 2. Albumin. 3. Albuterol. 4. Aspirin. 5. Avodart. 6. Calcium. 7. DuoNeb. 8. Hydroxyzine. 9. Insulin. 10. Synthroid. 11. Morphine. 12. Nitroglycerin. 13. Normal saline fluid. 14. Reglan. REVIEW OF SYSTEMS: 12 systems reviewed from looking in the chart. Patient is a poor historian. PHYSICAL EXAMINATION: Difficult to get history from the patient, mostly from the old chart: GENERAL: Pale, dehydrated, sick-looking patient. No abdominal pain. VITAL SIGNS: Heart rate was in the 90s, blood pressure 110/70, respirations 26, weight ____ kg. HEENT: PERRLA. No cyanosis. NECK: No lymphadenopathy. LUNGS: No crackles or wheezing. HEART: No murmur. ABDOMEN: Soft. EXTREMITIES: Left-sided weakness noted. No edema. No lymphadenopathy. SKIN: Mid abdominal and mid chest scar noted from recent surgery. Otherwise, detailed examination could not be done. DATABASE: Laboratory evaluation report noted BUN 47, hemoglobin dropped from 12.8 to 7.9, creatinine was normal. BMP: White count was 11,000, it has gone to 15,000. Hemoglobin dropped from 9 to 7.9 this morning. Patient has had workup done in the past. Echo showed normal ventricular function with ejection fraction of 55%. Ascending aortic dilatation was 6 cm; this was before surgery. Aortic root was 3.9 cm with mild simple aortic insufficiency. IMPRESSION AND PLAN: 1. Upper gastrointestinal bleeding present with melena. 2. Severe anemia. 3. Severely elevated BUN and creatinine. 4. On heparin and Coumadin. Recommended Protonix drip, upper endoscopy, and 2 units of blood transfusion. Upper endoscopy showed duodenal ulceration with a clot. Unable even to visualize the small pyloric ulcer. Unable to do any interventions. There was no active bleeding from the adherent clot and distal to the ulceration. The patient is to be continued to be kept in the intensive care unit. Talk to CT surgeon, Dr. Gaxiola and to the staff nurse if active bleeding. If not able to do endoscopic intervention, need a computerized tomographic angiogram and embolization or surgery. Hold blood thinners if you give fresh frozen plasma. Now, the risk of thrombosis is high from stroke, infarction. INR is 2. Advise if bleeding, to give fresh frozen plasma and embolization at that time. Discussed with the cardiothoracic surgeon and he is agreeable with the plan and supportive therapy of 2 units of blood transfusion and n.p.o. on supportive management. Monitor the hemoglobin, INR, and BMP. Follow up tomorrow for postprocedure followup. Robinson Collazo M.D. Dict: 11/28/2018 11:04:00 Trans: 11/28/2018 13:39:59 CC1: Robinson oCllazo M.D. CC2: Negra Garcia M.D. CC3: Jacob Coy MD documented in this encounter Plan of Treatment Not on file documented as of this encounter Visit Diagnoses Not on filedocumented in this encounter
--- OUTSIDE RECORDS SUMMARY | 2025-02-23 11:54 | XMS_ITS | Encounter Summary ---
Author Organization [employer] ([place], [place], [place], [place]) Address [address] [place] [address] Care Team Providers Care Lean Manufacturing Engineer Name Role Phone Unavailable Primary Care Provider Unavailabl e Encounter Details Date Type Department Care Team (Late st Contact Info) Description 11/19/2018 Transcribed Document [facility] Cardiology [address] [place] [address] Lc Armendariz MD [address] [facility] [address] [place] [address] Social History Tobacco Use Types Packs/Day Years Used Date Smoking Tobacco: Never Assessed Sex and Gender Information Value Date Recorded Sex Assigned at Not on file Legal Sex Male 5:03 PM CDT Gender Identity Not on file Sexual Orientation Not on file documented as of this encounter Miscellaneous Notes * Cerner Conversion Note - Lc Armendariz MD - 11/19/2018 9:31 AM EDT Patient: DOTTIE VILLASENOR Age: 78 years Sex: Male : 1940 Associated Diagnoses: None Author: LC ARMENDARIZ MD-CAR Subjective Answers questions, still somewhat somnolent Health Status Current medications: (Selected) Inpatient Medications [...] mg, Oral, At Bedtime saliva substitutes: 1 [place], Buccal, Q2H, PRN: Other (See Comment) sodium [...] Intake and Output 24 hour intake: Total 1,815 ml 24 hour output: Total 710 ml VS/Measurements Vitals Signs (last 24 hrs) Last Charted Minimum Maximum Apical HR H 101 (NOV 18 20:33) H 101 (NOV 18 20:33) H 101 (NOV 18 20:33) Mon HR 97 (NOV 19 08:00) 80 (NOV 18 08:35) 102 (NOV 18 19:37) Resp Rate 17 (NOV 19 08:00) 17 (NOV 19 07:00) H 28 (NOV 19 01:00) SBP 122 (NOV 19 08:00) 101 (NOV 19 04:00) H 153 (NOV 18 12:00) DBP 69 (NOV 19 08:00) L 53 (NOV 19 04:00) 84 (NOV 18 12:00) MAP 85 (NOV 19 08:00) 71 (NOV 19 04:00) 111 (NOV 18 12:00) SpO2 99 (NOV 19 08:00) 97 (NOV 18 19:37) 100 (NOV 18 08:35) General: Alert and oriented, No acute distress. [...] of motion, Normal strength. Integumentary: Warm, Dry, [place]. Neurologic: Alert, Oriented. Psychiatric: Cooperative, Appropriate mood & affect. Results Review NOV 19 04:08 138 105 21 / H 184 4.0 28 0.70 \ NOV 19 04:08 \ L 10.0 / H 15.0 L 101 / L 30.3 \ Radiology Results (Last 48 hours) [id number] -- 11/16/2018 06:45 CR Chest 1 Vw Portable (11/18/2018 03:45) [...] transcribed report. CR Chest 1 Vw Portable (11/19/2018 03:30) [...] encephalopathy post operative HTN HLD Hypothyroidism. PLAN; 11/19/18 No changes to CV Rx at this point Encourage mobilization as appropriate Will sign off today 11/18/18 Continue current CV Rx Consider adding PO hydralazine for better BP control AM Labs 11/17/18 Agree with Metoprolol, continue ARB with hold parameters AM labs documented in this encounter Plan of Treatment Not on file documented as of this encounter Visit Diagnoses Not on filedocumented in this encounter
--- OUTSIDE RECORDS SUMMARY | 2025-02-23 11:54 | XMS_ITS | Encounter Summary ---
Author Organization [employer] ([place], [place], [place], [place]) Address [address] [place] [address] Care Team Providers Care Platen Drier Operator Name Role Phone Unavailable Primary Care Provider Unavailabl e Encounter Details Date Type Department Care Team (Late st Contact Info) Description 11/28/2018 Transcribed Document [facility] [place] Family Medicine [address] [place] [address] ProviderErika MD [address] [place] [address] Social History Tobacco Use Types Packs/Day Years Used Date Smoking Tobacco: Never Assessed Sex and Gender Information Value Date Recorded Sex Assigned at Not on file Legal Sex Male 5:03 PM CDT Gender Identity Not on file Sexual Orientation Not on file documented as of this encounter Miscellaneous Notes * Cerner Conversion Note - Erika Jose MD - 11/28/2018 4:37 AM CDT Rapid Response Team Documentation Entered On: 11/28/2018 4:44 EDT Performed On: 11/28/2018 4:37 EDT by COREY MACHUCA RN Rapid Response Event Rapid Response Event Intiated By : Hospital Staff Rapid Response Team Initiation Reason : Change in cardiovascular status Rapid Response Event Location Type : Non Critical Care Rapid Response Team Initiation Reason Details : 333 pt with dark tarry stool on heparin gtt paged heparin gtt stopped. CBC noted am labs completed. Rapid Response Admission Diagnosis : Atherosclerotic heart disease of [place] coronary artery without angina pectoris Atherosclerotic heart disease of [place] coronary artery without angina pectoris Cerebral infarction, [...] Rapid Response Recent Vital Signs : 11/28/2018 03:41 Systolic Blood Pressure 85 11/28/2018 03:41 Diastolic Blood Pressure 47 11/28/2018 03:41 Heart Rate Monitored 95 11/27/2018 21:21 Heart Rate, Apical 107 11/27/2018 18:15 Respiratory Rate 16 11/28/2018 02:30 Temperature, Fahrenheit 97.8 11/27/2018 21:18 Oxygen Saturation 93 Rapid Response Recent Lab Results : 11/28/2018 [...] (7-22) 11/28/2018 02:54 Creatinine Level 0.90 (0.70-1.30) 11/27/2018 06:12 PT HI 14.8 (9.6-12.0) 11/27/2018 06:12 INR HI 1.4 (0.9-1.1) 11/26/2018 10:40 PTT HI 55.8 (22.0-32.0) [...] Body Mass Index: 23 kg/m2 (11/15/18 13:52:00) Rapid Response Team Recommendation/Response : Call MD Request Critical care Telemetry standing orders NS bolus if ok with MD Type and cross if ok with MD q 15 minute blood pressure checks Patient Condition at End of Event : No S/S of Acute Distress Patient Disposition Post Event : No change in location/level of care Rapid Response Platen Drier Operator #1 : COREY MACHUCA, RN COREY MACHUCA, RN - 11/28/2018 4:37 EDT Electronically signed by Parveen [facility] Conversion Industrial Conveyor Belt Repairer Cerner at 12/08/2022 12:39 PM CDT documented in this encounter Plan of Treatment Not on file documented as of this encounter Visit Diagnoses Not on filedocumented in this encounter
--- OUTSIDE RECORDS SUMMARY | 2025-02-23 11:54 | XMS_ITS | Encounter Summary ---
Author Organization [employer] ([place], [place], [place], [place]) Address [address] [place] [address] Care Team Providers Care Railway Station Manager Name Role Phone Unavailable Primary Care Provider Unavailabl e Encounter Details Date Type Department Care Team (Late st Contact Info) Description 11/28/2018 Transcribed Document [facility] [place] Family Medicine [address] [place] [address] ProviderErika MD [address] [place] [address] Social History Tobacco Use Types Packs/Day Years Used Date Smoking Tobacco: Never Assessed Sex and Gender Information Value Date Recorded Sex Assigned at Not on file Legal Sex Male 5:03 PM CDT Gender Identity Not on file Sexual Orientation Not on file documented as of this encounter Miscellaneous Notes * Cerner Conversion Note - Historical ProviderMD - 11/28/2018 9:30 AM CDT Attempt to Treat, PT Entered On: 11/28/2018 10:30 EDT Performed On: 11/28/2018 9:30 EDT by DEMETRICE MURPHY, PT Attempt to Treat Unable to Treat Due To : Acuity of Illness, Patient on hold Inability to Treat Comment : pt transferred to CTVU 21 due to GI bleed and hypotension. WIll hold PTx today and check back tomorrow Notification : Discussed with DEMETRICE Hernandez RN, PT - 11/28/2018 10:29 EDT Electronically signed by Christina Saini Conversion Licensed Physical Therapist Assistant Cerjuju at 12/08/2022 12:29 PM CDT documented in this encounter Plan of Treatment Not on file documented as of this encounter Visit Diagnoses Not on filedocumented in this encounter
--- OUTSIDE RECORDS SUMMARY | 2025-02-23 11:54 | XMS_ITS | Encounter Summary ---
Author Organization [employer] ([place], [place], [place], [place]) Address [address] [place] [address] Care Team Providers Care Research Quality Assurance Analyst Name Role Phone Unavailable Primary Care Provider Unavailabl e Encounter Details Date Type Department Care Team (Late st Contact Info) Description 11/26/2018 Transcribed Document [facility] [address] [place] [address] ProviderErika MD [address] [place] [address] Social History Tobacco Use Types Packs/Day Years Used Date Smoking Tobacco: Never Assessed Sex and Gender Information Value Date Recorded Sex Assigned at Not on file Legal Sex Male 5:03 PM CDT Gender Identity Not on file Sexual Orientation Not on file documented as of this encounter Miscellaneous Notes * Cerner Conversion Note - Erika ProviderMD - 11/26/2018 11:16 AM CDT Care Management Assessment/Plan Entered On: 11/26/2018 11:20 EDT Performed On: 11/26/2018 11:16 EDT by ANGELA NAIR Social Worker Care Management Note Care Management Note : Continue to follow for discharge needs and arrangements, chart reviewed, admission day 10, transfer from CTVU, on room air, WBC=11.2, INR=1.1, PTT=55.8, on IV Heparin gtt due to DVT in left arm, MBS completed today now on regular cardiac diet with thin liquids, PT/OT following (not seen on 11/25/18) followed up with [facility] today regarding possible admission - plan is to submit for approval today after being seen by therapy, for their MD approval. Once accepting MD in place, bed in place and patient is medically stable will be able to transfer due to patient not requiring a insurance prior auth. CM will continue to follow. ANGELA NAIR Social Worker - 11/26/2018 11:21 EDT Care Management Note Report : LUCIE, ODALYS, Rn-Destination Sign Repairer - 11/24/18 13:22:19 11/24/18 Andra from [facility] called to let me know they started a precert on this pt. CF ODALYS FAULKNER, Rn-Destination Sign Repairer - 11/22/18 13:56:32 11/22/18 Pt has had a cva. Spoke to his Connie and son Sumeet at the bedside. Pt is lfacid on the left side. Discussed the need for STR and they decided on [facility]. Sent pt info via Tynt to [facility]. CF Documentation Status Complete : Yes ANGELA NAIR, Circle Edger - 11/26/2018 11:16 EDT Electronically signed by Parveen [facility] Conversion Clay Processing Labourer Cerner at 12/08/2022 12:12 PM CDT documented in this encounter Plan of Treatment Not on file documented as of this encounter Visit Diagnoses Not on filedocumented in this encounter
--- OUTSIDE RECORDS SUMMARY | 2025-02-23 11:54 | XMS_ITS | Encounter Summary ---
Author Organization [employer] [facility] ([place], [place], [place], [place]) Address [address] [place] [address] Care Team Providers Care Float Tender Name Role Phone Unavailable Primary Care Provider Unavailabl e Encounter Details Date Type Department Care Team (Late st Contact Info) Description 11/21/[address] [facility] [place] Family Medicine [address] [place] [address] ProviderErika MD [address] [place] [address] Social History Tobacco Use Types Packs/Day Years Used Date Smoking Tobacco: Never Assessed Sex and Gender Information Value Date Recorded Sex Assigned at Not on file Legal Sex Male 5:03 PM CDT Gender Identity Not on file Sexual Orientation Not on file documented as of this encounter Miscellaneous Notes * Cerner Conversion Note - Erika ProviderMD - 11/21/2018 9:37 AM CDT Consult Phone Call Documentation Entered On: 11/21/2018 9:41 EDT Performed On: 11/21/2018 9:37 EDT by José Miguel Tran, [facility] Phone Call for Consults Consult Phone Call/Page Attempt : Other: Nurse spoke to Dr. Amaro. José Miguel Tran [facility] - 11/21/2018 9:40 EDT documented in this encounter Plan of Treatment Not on file documented as of this encounter Visit Diagnoses Not on filedocumented in this encounter
--- OUTSIDE RECORDS SUMMARY | 2025-02-23 11:54 | XMS_ITS | Encounter Summary ---
Author Organization [employer] ([place], [place], [place], [place]) Address [address] [place] [address] Care Team Providers Care Facility Maintenance Worker Name Role Phone Unavailable Primary Care Provider Unavailabl e Encounter Details Date Type Department Care Team (Late st Contact Info) Description 11/05/2018 Transcribed Document [facility] [place] Family Medicine [address] [place] [address] ProviderErika MD [address] [place] [address] Social History Tobacco Use Types Packs/Day Years Used Date Smoking Tobacco: Never Assessed Sex and Gender Information Value Date Recorded Sex Assigned at Not on file Legal Sex Male 5:03 PM CDT Gender Identity Not on file Sexual Orientation Not on file documented as of this encounter Miscellaneous Notes * Cerner Conversion Note - Erika ProviderMD - 11/05/2018 12:48 PM CDT [address] [address] Patient Copy Patient Information: Name: DOTTIE VILLASENOR Current Date: 11/05/2018 12:48:54 : 1940 Patient Address: [address] [place] [id number] Patient Attending Physician: LEYLA ARMENDARIZ MD-CAR Primary Care Provider: DEMETRICE ARMIJO NP-JORGE Primary Care Provider Discharge Diagnosis: Weight on Admission: 170 lb, 0 oz Comment: Follow-up Instructions: With: Address: When: JULIO CESAR GAXIOLA [address] [place] [address], [address] [phone] Business (1) 1:30 PM Comments: Follow up with Dr. Gaxiola , surgeon, October at 1:30 pm With: Address: When: [address]IO [address]ESAR [address] [place] [address] Nightingale (1) 1:15 PM Comments: Follow up with Dr. Combs November at 1:15 pm ...notify him sooner if any problems Discharge Instructions: Diet after Discharge: Heart healthy diet Activity after Discharge: Rest and relax today, No strenuous activities, Other: do not lift over one pound with your right arm for 2 days Driving after Discharge: Other: do not drive for 24 hours after the procedure Showering/Bathing:Other: you may remove the dressing from your right arm tomorrow and then shower. No tub baths or soaking your arm in water until the incision has fully healed. Wound/Incision Care after Discharge: Keep operative site/wound site clean and dry, Other: remove the dressing from your right arm tomorrow and then gently clean with soap and water daily Immunizations Documented During Stay: No Immunizations Found Worker's Compensation Paperwork Completed: No Special Instructions: IF bleeding, apply pressure as shown and call 911. Follow post radial ( arm) instructions.....see attached sheet Heart Failure Discharge Instructions (if any): Stroke Related Discharge Instructions (if any): Warfarin Related Discharge Instructions (if any): Final Medication List: Other Medications dutasteride (Avodart 0.5 mg oral capsule) 1 Capsule(s) Oral At Bedtime. levothyroxine (levothyroxine 50 mcg (0.05 mg) oral tablet) 1 Tablet(s) Oral At Bedtime. losartan (losartan 100 mg oral tablet) 1 Tablet(s) Oral Every Day. metoprolol (metoprolol extended release) 1 Tablet(s) Oral Every Day. rOPINIRole (rOPINIRole 2 mg oral tablet) 1 Tablet(s) Oral Every Day. Patient Allergies: No Known Medication Allergies Medication Instructions: Take your medications faithfully. [...] difficulty sleeping, and nervousness. Patient education materials: Moderate Conscious Sedation, Adult, Care After These instructions provide you with information about caring for yourself after your procedure. Your health care provider may also give you more specific instructions. Your treatment has been planned according to current medical practices, but problems sometimes occur. Call your health care provider if you have any problems or questions after your procedure. What can I expect after the procedure? After your procedure, it is common: ??? To feel sleepy for several hours. ??? To feel clumsy and have poor balance for several hours. ??? To have poor judgment for several hours. ??? To vomit if you eat too soon. Follow these instructions at home: For at least 24 hours after the procedure: ??? Do not: ? Participate in activities where you could fall or become injured. ? Drive. ? Use heavy machinery. ? Drink alcohol. ? Take sleeping pills or medicines that cause drowsiness. ? Make important decisions or sign legal documents. ? Take care of children on your own. ??? Rest. Eating and drinking ??? Follow the diet recommended by your health care provider. ??? If you vomit: ? Drink water, juice, or soup when you can drink without vomiting. ? Make sure you have little or no nausea before eating solid foods. General instructions ??? Have a responsible adult stay with you until you are awake and alert. ??? Take [id number] and prescription medicines only as told by your health care provider. ??? If you smoke, do not smoke without supervision. ??? Keep all follow-up visits as told by your health care provider. This is important. Contact a health care provider if: ??? You keep feeling nauseous or you keep vomiting. ??? You feel light-headed. ??? You develop a rash. ??? You have a fever. Get help right away if: ??? You have trouble breathing. This information is not intended to replace advice given to you by your health care provider. Make sure you discuss any questions you have with your health care provider. Document Released: 05/31/2014 Document Revised: 01/12/2017 Document Reviewed: 11/29/2016 [employer] Interactive Patient Education ? 2017 [employer]. Radial Site Care Introduction Refer to this sheet in the next few weeks. These instructions provide you with information about caring for yourself after your procedure. Your health care provider may also give you more specific instructions. Your treatment has been planned according to current medical practices, but problems sometimes occur. Call your health care provider if you have any problems or questions after your procedure. What can I expect after the procedure? After your procedure, it is typical to have the following: ??? Bruising at the radial site that usually fades within 1?2 weeks. ??? Blood collecting in the tissue (hematoma) that may be painful to the touch. It should usually decrease in size and tenderness within 1?2 weeks. Follow these instructions at home: ??? Take medicines only as directed by your health care provider. ??? You may shower 24?48 hours after the procedure or as directed by your health care provider. Remove the bandage (dressing) and gently wash the site with plain soap and water. Pat the area dry with a clean towel. Do not rub the site, because this may cause bleeding. ??? Do nottake baths, swim, or use a hot tub until your health care provider approves. ??? Check your insertion site every day for redness, swelling, or drainage. ??? Do notapply powder or lotion to the site. ??? Do notflex or bend the affected arm for 24 hours or as directed by your health care provider. ??? Do notpush or pull heavy objects with the affected arm for 24 hours or as directed by your health care provider. ??? Do notlift over 10 lb (4.5 kg) for 5 days after your procedure or as directed by your health care provider. ??? Ask your health care provider when it is okay to:? Return to work or school. ? Resume usual physical activities or sports. ? Resume sexual activity. ??? Do notdrive home if you are discharged the same day as the procedure. Have someone else drive you. ??? You may drive 24 hours after the procedure unless otherwise instructed by your health care provider. ??? Do notoperate machinery or power tools for 24 hours after the procedure. ??? If your procedure was done as an outpatient procedure, which means that you went home the same day as your procedure, a responsible adult should be with you for the first 24 hours after you arrive home. ??? Keep all follow-up visits as directed by your health care provider. This is important. Contact a health care provider if: ??? You have a fever. ??? You have chills. ??? You have increased bleeding from the radial site. Hold pressure on the site. Get help right away if: ??? You have unusual pain at the radial site. ??? You have redness, warmth, or swelling at the radial site. ??? You have drainage (other than a small amount of blood on the dressing) from the radial site. ??? The radial site is bleeding, and the bleeding does not stop after 30 minutes of holding steady pressure on the site. ??? Your arm or hand becomes pale, cool, tingly, or numb. This information is not intended to replace advice given to you by your health care provider. Make sure you discuss any questions you have with your health care provider. Document Released: 09/12/2011 Document Revised: 01/15/2017 Document Reviewed: 02/26/2015 ? 2017 Elsevier Angiogram, Care After Refer to this sheet in the next few weeks. These instructions provide you with information about caring for yourself after your procedure. Your health care provider may also give you more specific instructions. Your treatment has been planned according to current medical practices, but problems sometimes occur. Call your health care provider if you have any problems or questions after your procedure. What can I expect after the procedure? After your procedure, it is typical to have the following: ??? Bruising at the catheter insertion site that usually fades within 1?2 weeks. ??? Blood collecting in the tissue (hematoma) that may be painful to the touch. It should usually decrease in size and tenderness within 1?2 weeks. Follow these instructions at home: ??? Take medicines only as directed by your health care provider. ??? You may shower 24?48 hours after the procedure or as directed by your health care provider. Remove the bandage (dressing) and gently wash the site with plain soap and water. Pat the area dry with a clean towel. Do not rub the site, because this may cause bleeding. ??? Do nottake baths, swim, or use a hot tub until your health care provider approves. ??? Check your insertion site every day for redness, swelling, or drainage. ??? Do not apply powder or lotion to the site. ??? Do notlift over 10 lb (4.5 kg) for 5 days after your procedure or as directed by your health care provider. ??? Ask your health care provider when it is okay to: ? Return to work or school. ? Resume usual physical activities or sports. ? Resume sexual activity. ??? Do notdrive home if you are discharged the same day as the procedure. Have someone else drive you. ??? You may drive 24 hours after the procedure unless otherwise instructed by your health care provider. ??? Do notoperate machinery or power tools for 24 hours after the procedure or as directed by your health care provider. ??? If your procedure was done as an outpatient procedure, which means that you went home the same day as your procedure, a responsible adult should be with you for the first 24 hours after you arrive home. ??? Keep all follow-up visits as directed by your health care provider. This is important. Contact a health care provider if: ??? You have a fever. ??? You have chills. ??? You have increased bleeding from the catheter insertion site. Hold pressure on the site. Get help right away if: ??? You have unusual pain at the catheter insertion site. ??? You have redness, warmth, or swelling at the catheter insertion site. ??? You have drainage (other than a small amount of blood on the dressing) from the catheter insertion site. ??? The catheter insertion site is bleeding, and the bleeding does not stop after 30 minutes of holding steady pressure on the site. ??? The area near or just beyond the catheter insertion site becomes pale, cool, tingly, or numb. This information is not intended to replace advice given to you by your health care provider. Make sure you discuss any questions you have with your health care provider. Document Released: 02/26/2006 Document Revised: 01/15/2017 Document Reviewed: 01/11/2014 [employer] Mail Interactive Patient Education ? 2017 [employer]. CIGARETTE SMOKING: The facts are clear, cigarette smoking will shorten your life. Smoking can cause many illnesses along the way. As a healthcare provider, we recommend that you stop smoking. Assistance with quitting is available by contacting 8-946-TFXY-NOW. This is a free resource providing counseling, [...] Be sure to sign up for the [employer] patient portal, which gives you 16/03 access to your medical information ??? including these discharge instructions ??? using your computer, smartphone, or tablet. Just go to [employer] to get started. Questions? Call . [facility] would like to thank you for allowing us to assist you with your healthcare needs. HAMILTON Jarvis ROBERT H, (or motor vehicle representative) have received the above patient education materials/instructions and have verbalized understanding: Patient Signature _ Date/Time Patient Foil Stamp Operator Signature (if needed) Date/Time Clinician/Hospital Foil Stamp Operator Signature (if needed) Date/Time Electronically signed by Parveen, [facility] Conversion Paintless Dent Repair Technician Cerner at 12/08/2022 12:14 PM CDT documented in this encounter Plan of Treatment Not on file documented as of this encounter Visit Diagnoses Not on filedocumented in this encounter
--- OUTSIDE RECORDS SUMMARY | 2025-02-23 11:54 | XMS_ITS | Encounter Summary ---
Author Organization [employer] ([place], [place], [place], [place]) Address [address] [place] [address] Care Team Providers Care Crusher Dry Ground Mica Name Role Phone Unavailable Primary Care Provider Unavailabl e Encounter Details Date Type Department Care Team (Late st Contact Info) Description 11/05/2018 Transcribed Document [facility] [place] Medicine [address] [place] [address] ProviderErika MD [address] [place] [address] Social History Tobacco Use Types Packs/Day Years Used Date Smoking Tobacco: Never Assessed Sex and Gender Information Value Date Recorded Sex Assigned at Not on file Legal Sex Male 5:03 PM CDT Gender Identity Not on file Sexual Orientation Not on file documented as of this encounter Miscellaneous Notes * Cerner Conversion Note - Erika Jose MD - 11/05/2018 12:46 PM CDT Discharge Instructions Entered On: 11/05/2018 12:48 EDT Performed On: 11/05/2018 12:46 EDT by SRIRAM PATEL RN DC Instructions HWD Stroke/TIA Discharge Ins : N/A Heart Failure Discharge Ins : N/A Warfarin Discharge Ins : N/A Diet After Discharge : Heart healthy diet Activity After Discharge : Rest and relax today, No strenuous activities, Other: do not lift over one pound with your right arm for 2 days Driving After Discharge : Other: do not drive for 24 hours after the procedure Showering/Bathing : Other: you may remove the dressing from your right arm tomorrow and then shower. No tub baths or soaking your arm in water until the incision has fully healed. Wound/Incision Care After Discharge : Keep operative site/wound site clean and dry, Other: remove the dressing from your right arm tomorrow and then gently clean with soap and water daily Special Instructions : IF bleeding, apply pressure as shown and call 911. Follow post radial ( arm) instructions.....see attached sheet SRIRAM PATEL RN - 11/05/2018 12:46 EDT documented in this encounter Plan of Treatment Not on file documented as of this encounter Visit Diagnoses Not on filedocumented in this encounter
--- OUTSIDE RECORDS SUMMARY | 2025-02-23 11:54 | XMS_ITS | Encounter Summary ---
Author Organization [employer] ([place], [place], [place], [place]) Address [address] [place] [address] Care Team Providers Care Irrigating Pump Operator Name Role Phone Unavailable Primary Care Provider Unavailabl e Encounter Details Date Type Department Care Team (Late st Contact Info) Description 11/16/2018 Transcribed Document [facility] [address] [place] [address] Niles Nunez MD [address] [place], [place] [id number] Social History Tobacco Use Types Packs/Day Years Used Date Smoking Tobacco: Never Assessed Sex and Gender Information Value Date Recorded Sex Assigned at Not on file Legal Sex Male 5:03 PM CDT Gender Identity Not on file Sexual Orientation Not on file documented as of this encounter Miscellaneous Notes * Cerner Conversion Note - Niles Nunez MD - 11/16/2018 2:07 PM EDT DATE OF SERVICE: 11/16/2018 INTRAOPERATIVE TRANSESOPHAGEAL ECHOCARDIOGRAM REPORT SURGEON: Porfirio Gaxiola IV, MD PROCEDURE: Coronary artery bypass grafting, aortic valve replacement, and ascending aorta replacement. CLINICAL INDICATION: For ascending aortic aneurysm. DESCRIPTION OF PROCEDURE: Procedure was carried out in the operating room with the patient under general anesthesia. The Blake Omniplane probe was passed easily and the images were acquired by Dr. Nunez. The aortic valve was tricuspid with normal mobile leaflets. There was mild aortic insufficiency with a central jet. There was no aortic stenosis from the aortic valve max and mean gradients of 4 and 2 mmHg, and aortic valve area of 3.3 square centimeter by continuity equation. The aortic annulus measured 2.2 cm. Aortic root was 3.9 cm. Sinotubular junction measured 3.5 cm. The ascending aorta was 6 cm. Aortic arch measured 3.2 cm and descending aorta measured 3.4 cm. Mitral valve leaflets were normal. There was no mitral stenosis with mitral valve mean gradient of 1 mmHg with mitral valve area of 3.8 square centimeter by pressure half-time. There was mild mitral regurgitation. Regurgitant jet was central. Pulmonary venous flow pattern showed normal flow. There was no clot noted in left atrial appendage. Tricuspid valve morphology was normal. There was mild tricuspid regurgitation. Interatrial septum was intact with a normal intact fossa ovalis. Color flow demonstrated no flow across the septum. Pulmonary valve showed trace insufficiency. Interventricular septum was intact. Left ventricle was normal size with mild left ventricular hypertrophy. Septal wall measuring 1.3 cm. There were no regional wall motion abnormalities. Ejection fraction was estimated to be 55% to 60%. Right ventricle was normal size and function. Lateral mitral E prime was greater than 10 cm/sec, consistent with normal diastolic function. There was minimal aortic atherosclerosis. There was no aortic dissection seen. There were no pleural effusions and no pericardial fluid. Following cardiopulmonary bypass, left ventricular function was unchanged. There were no new regional wall motion abnormalities. Ejection fraction was still 55% to 60%. A 29 mm freestyle aortic valve had been placed with no perivalvular leak and no aortic insufficiency. Max and mean gradients across the prosthetic valve were 5 and 3 mmHg. An ascending aortic tube graft had also been performed. There was no aortic dissection seen and there were no other significant changes following cardiopulmonary bypass. IMPRESSION: 1. Normal left ventricular size, mild [...] and no significant gradient across the valve. These findings were discussed with surgeon, Dr. Gaxiola. Niles Nunez M.D. Dict: 11/16/2018 13:07:12 Trans: 11/16/2018 19:19:29 CC1: Niles Nunez M.D. documented in this encounter Plan of Treatment Not on file documented as of this encounter Visit Diagnoses Not on filedocumented in this encounter
--- OUTSIDE RECORDS SUMMARY | 2025-02-23 11:54 | XMS_ITS | Encounter Summary ---
Author Organization [employer] ([place], [place], [place], [place]) Address [address] [place] [address] Care Team Providers Care Color Straining Bag Washer Name Role Phone Unavailable Primary Care Provider Unavailabl e Encounter Details Date Type Department Care Team (Late st Contact Info) Description 11/26/2018 Transcribed Document [facility] [place] [facility] [address] [place] [address] ProviderErika MD [address] [place] [address] Social History Tobacco Use Types Packs/Day Years Used Date Smoking Tobacco: Never Assessed Sex and Gender Information Value Date Recorded Sex Assigned at Not on file Legal Sex Male 5:03 PM CDT Gender Identity Not on file Sexual Orientation Not on file documented as of this encounter Miscellaneous Notes * Cerner Conversion Note - Erika ProviderMD - 11/26/2018 7:00 AM CDT MBSS/VFSS Evaluation Entered On: 11/26/2018 9:23 EDT Performed On: 11/26/2018 9:15 EDT by JOSSUE RODRÍGUEZ HOUSE PAINTER General Information Visit Type, HOUSE PAINTER : Re-Evaluation Patient Orders : HOUSE PAINTER Fxoliver Limitation Documentation x 1 -111 Start: 11/25/18 10:29:25 EDT - SYSTEM, SYSTEM Speech Language Pathology Modified Barium Swallow Study - Start: 11/26/18 7:00:00 EDT, Routine, For Other (see special instructions), Dysphagia -111 GISSEL ZHANG PA HOUSE PAINTER Fxnl Limitation Documentation - Start: 11/20/18 9:37:47 EDT, Continuous Order -111 SYSTEM, SYSTEM Speech Language Pathology Additional Tx - Start: 11/20/18 9:36:00 EDT, For Dysphagia, Continuous Order -111 Admission Date : Admission Date/Time: 11/16/18 06:45:00 Medical Chart Reviewed, HOUSE PAINTER : Yes Personal Devices : Personal Devices No Devices Recorded Assistive Devices : Assistive Devices No Devices Recorded Active Diagnoses : 11/23/2018 00:00 Cerebral infarction, unspecified 11/17/2018 00:00 Atherosclerotic heart disease of [place] coronary artery without angina pectoris 11/17/2018 00:00 Essential (primary) hypertension 11/17/2018 00:00 Hypothyroidism, unspecified 11/17/2018 00:00 Nonrheumatic aortic (valve) insufficiency 11/17/2018 00:00 Restless legs syndrome 11/17/2018 00:00 Thoracic aortic aneurysm, without rupture 11/17/2018 00:00 Thrombocytopenia, unspecified 11/16/2018 00:00 Atherosclerotic heart disease of [place] coronary artery without angina pectoris 11/16/2018 00:00 Nonrheumatic aortic (valve) insufficiency 11/16/2018 00:00 Thoracic aortic aneurysm, without rupture Therapy Diagnosis, HOUSE PAINTER : functional oropharyngeal skills Previous Speech/Language Evaluations : N/A Previous Swallow Precautions : Bedside 11/20 recommended instrumental prior to initiating PO diet, FEES recommended reg/nectar. Pt has participated in tx and is ready for a repeat study Previous Cognitive Evaluations : this admit Diet/Intake Prior to Current Admission : Regular/thin Diet/Intake During Current Admission : reg/thin following MBS Intubation Comment, HOUSE PAINTER : 11/16-11/17 Vital Signs RTF : Vitals [...] Respiratory Assessment Comment : nasal cannula JOSSUE RODRÍGUEZ, ERIC - 11/26/2018 9:15 EDT General Status Patient Received Status, HOUSE PAINTER : Up in chair Patient Left Status, HOUSE PAINTER : Up in chair JOSSUE RODRÍGUEZ SLP - 11/26/2018 9:15 EDT Pain Assessment Pain Scaled Used : FACES Pain Score Pre-Intervention : 2 JOSSUE RODRÍGUEZ SLP - 11/26/2018 9:15 EDT Image 1 - Images currently included in the form version of this document have not been included in the text rendition version of the form. MBSS/VFSS Exam Swallow Outcome MB/VFSS : Intact Swallow Positions MB/VFSS : Upright 90 degrees Head Control MB/VFSS : Neutral head position Trunk Control MB/VFSS : Upright centered position Presentation Style MB/VFSS : Clinician Consistencies Trialed MB/VFSS : Thin by straw, [place] by straw, Pudding JOSSUE RODRÍGUEZ, ERIC - 11/26/2018 9:15 EDT Swallow Impressions Impressions, MBSS/VFSS : Functional swallow for oral intake JOSSUE RODRÍGUEZ SLP - 11/26/2018 9:15 EDT 8 Point Penetration/Aspiration Grid Thin by Straw : 1 [place] by Straw : 1 Pudding : 1 JOSSUE RODRÍGUEZ SLP - 11/26/2018 9:15 EDT MBSS/VFSS Overall Impressions : Pt seated at 90 degrees in Haustead BRIDGER chair. Exaggerated lordosis of the cervical spine observed during study. Pt presents with functional oral and pharyngeal skills. Initially, there was trace penetration of thins which occured during the swallow as a result of mistiming. Cued coughs are required to clear the vestibule. As study and trials progressed, timing normalized and there was no further penetration with thins. Additionally, there was no penetration of nectar or pudding. Solids were not tested as he has been consuming them for a week now. There is very mild vallecular and pyriform residue which is cleared with a spontaneous reswallow. At this time, pt may advance to a reg/thin diet. No further dysphagia tx indicated though ST will continue to follow for cognition. Discussed briefly with CTS PA. JOSSUE RODRÍGUEZ, HOUSE PAINTER - 11/26/2018 9:15 EDT Swallow Recommendations Recommended Diet Type, SwRec : Regular Recommended Liquid Diet, SwRec : Thin Swallow Position, SwRec : Upright 90 degrees Supervision Level w/Meals, SwRec : Independent, modified Recommended Med Present, SwRec : As per nursing JOSSUE RODRÍGUEZ SLP - 11/26/2018 9:15 EDT Therapy Indication Assessment HOUSE PAINTER Indicated : No HOUSE PAINTER Not Indicated : At prior level of function JOSSUE RODRÍGUEZ SLP - 11/26/2018 9:15 EDT Swallow Plan/Goals Swallow LTG Grid HOUSE PAINTER Logging Crew Supervisor Goal #1 HOUSE PAINTER Assisted Goal #2 Swallow LTG : Establish safe oral diet without aspiration Improve swallowing function for oral intake Status : Goal met Goal met Date Met : 11/22/2018 EDT 11/26/2018 EDT JOSSUE RODRÍGUEZ SLP - 11/26/2018 9:15 EDT JOSSUE RODRÍGUEZ SLP - 11/26/2018 9:15 EDT Swallow Goals Grid Goal #1 Goal [...] EDT 11/26/2018 EDT JOSSUE RODRÍGUEZ SLP - 11/26/2018 9:15 EDT JOSSUE RODRÍGUEZ SLP - 11/26/2018 9:15 EDT JOSSUE RODRÍGUEZ SLP - 11/26/2018 9:15 EDT JOSSUE RODRÍGUEZ SLP - 11/26/2018 9:15 EDT Education Barriers To Learning : Cognitive deficit Individuals Taught : Patient JOSSUE RODRÍGUEZ SLP - 11/26/2018 9:15 EDT HOUSE PAINTER Education Assessment Grid 1 Aspiration : Needs further teaching Diet Recommendation : Needs further teaching JOSSUE RODRÍGUEZ SLP - 11/26/2018 9:[address] [facility] HOUSE PAINTER Charges Modified Barium Swallow : 1 JOSSUE RODRÍGUEZ SLP - 11/26/2018 9:15 EDT documented in this encounter Plan of Treatment Not on file documented as of this encounter Visit Diagnoses Not on filedocumented in this encounter
--- OUTSIDE RECORDS SUMMARY | 2025-02-23 11:54 | XMS_ITS | Encounter Summary ---
Author Organization [employer] ([place], [place], [place], [place]) Address [address] [place] [address] Care Team Providers Care Guide Foreign Tour Name Role Phone Unavailable Primary Care Provider Unavailabl e Encounter Details Date Type Department Care Team (Late st Contact Info) Description 11/26/2018 Transcribed Document [facility] [facility] [address] [place] [address] ProviderErika MD [address] [place] [address] Social History Tobacco Use Types Packs/Day Years Used Date Smoking Tobacco: Never Assessed Sex and Gender Information Value Date Recorded Sex Assigned at Not on file Legal Sex Male 5:03 PM CDT Gender Identity Not on file Sexual Orientation Not on file documented as of this encounter Miscellaneous Notes * Cerner Conversion Note - Historical ProviderMD - 11/26/2018 5:00 PM CDT Chart Check - Review Order Profile Entered On: 11/26/2018 20:37 EDT Performed On: 11/26/2018 17:00 EDT by Nida Thomas RN Chart Check Chart Reviewed Date and Time : 11/26/2018 20:37 EDT Powerplans Initiated/Discontinued as Appropriate : Yes All Active Orders Reviewed : Yes Nida Thomas RN - 11/26/2018 20:37 EDT documented in this encounter Plan of Treatment Not on file documented as of this encounter Visit Diagnoses Not on filedocumented in this encounter
--- OUTSIDE RECORDS SUMMARY | 2025-02-23 11:54 | XMS_ITS | Encounter Summary ---
Author Organization [employer] ([place], [place], [place], [place]) Address [address] [place] [address] Care Team Providers Care Truck Trailer Final Inspector Name Role Phone Unavailable Primary Care Provider Unavailabl e Encounter Details Date Type Department Care Team (Late st Contact Info) Description 11/15/2018 Transcribed Document [facility] [place] Family Medicine [address] [place] [address] ProviderErika MD [address] [place] [address] Social History Tobacco Use Types Packs/Day Years Used Date Smoking Tobacco: Never Assessed Sex and Gender Information Value Date Recorded Sex Assigned at Not on file Legal Sex Male 5:03 PM CDT Gender Identity Not on file Sexual Orientation Not on file documented as of this encounter Miscellaneous Notes * Cerner Conversion Note - Erika ProviderMD - 11/15/2018 1:52 PM CDT PAT Adult Entered On: 11/15/2018 14:02 EDT Performed On: 11/15/2018 13:52 EDT by ANGELA KEY RN Height and Weight, Clinical Dosing Height Source : Measured Height Entry Format : [place] Height, Feet : 6 ft(Converted to: 183 cm, 72 Inch) Height, Inches : 1 Inch(Converted to: 0 ft 1 Inch, 2.54 cm) Clinical Height : 185.42 cm Weight Source : Standing scale Weight Entry Format : [place] Clinical Dosing Weight : 79.23 kg Weight, Pounds : 174 lb Weight, Ounces : 5 oz Body Surface Area (BSA) : 2.03 m2 Body Mass Index : 23 kg/m2 [place] Body Weight : 79 kg ANGELA KEY RN - 11/15/2018 13:52 EDT Health Histories Smoking Status : Never (less than 100 in lifetime; none in last 30 days) Smokeless Tobacco Status : Never ANGELA KEY RN - 11/15/2018 13:52 EDT Social History (As Of: 11/15/2018 14:02:18 EDT) Tobacco: Smoking Status Never smoker. (Last [...] 11/15/2018 13:53:56 EDT by ANGELA KEY RN) Infectious Disease History Infectious Disease History : Chicken pox/Shingles, Measles, Mumps Active Surveillance Screen Assessment : Patient does not meet any of above criteria Active Surveillance Screen Negative : Yes Travel To Regions with Travel Advisories : No Travel Outside [place] Within Last 30 Days : No Contact With Traveler to Advisory Region : No Tuberculosis Symptoms : None ANGELA KEY RN - 11/15/2018 13:52 EDT Anesthesia/Transfusion History Family History of Anesthesia Reaction : No prior transfusion(s) Transfusion History : Prior anesthesia without reaction Family History of Anesthesia Reaction : None ANGELA KEY RN - 11/15/2018 13:52 EDT Functional Assessment Functional ADL Evaluation Index EBN Bathing : Independent (2) Dressing : Independent (2) Toileting : Independent (2) Transferring Bed or Chair : Independent (2) Continence : Independent (2) Feeding : Independent (2) ANGELA KEY RN - 11/15/2018 13:52 EDT ADL Index Score : 12 ANGELA KEY RN - 11/15/2018 13:52 EDT Advance Directive Patient has Advance Directive *Q : No, patient refuses Advance Directive information ANGELA KEY RN - 11/15/2018 13:52 EDT Spiritual/Cultural Needs Any Spiritual/Cultural Needs or Requests : No ANGELA KEY RN - 11/15/2018 13:52 EDT Psychosocial History Do You Have a History of the Following? : Patient denies history Currently in Unsafe Situation : No Tried to Harm Yourself in the Past? : No Thoughts of Harming/Killing Yourself : No ANGELA KEY RN - 11/15/2018 13:52 EDT Education Topics, Periop Preadmission Perioperative Education Grid Arrival Time/Place : Verbalizes understanding Central Lines : Verbalizes understanding CHG Preoperative Bathing/Cloths : Verbalizes understanding Incentive Spirometry : Verbalizes understanding Infection Control : Verbalizes understanding IV's : Verbalizes understanding NPO Status/Directions : Verbalizes understanding Pain Management : Verbalizes understanding Preprocedure Preparations : Verbalizes understanding Preprocedure Tests/Labs : Verbalizes understanding Remove Body Piercings : Verbalizes understanding Take/Hold Medications Pre-Procedure : Verbalizes understanding ANGELA KEY RN - 11/15/2018 13:52 EDT General Info Arrived From : Home Mode of Arrival on Unit : Ambulatory Legal Guardian : Spouse Support Person/Patient Bag Machine Operator : Yes Support Person/Pt Rep Name : Connie- Sumeet - son Support Person/Pt Rep Contact Information : [phone] home [phone] - cell Want Family/Rep/Phys Notified of Admit : No Emergency Contact #1 : Connie Emergency Contact #1 Emergency Contact #1 Relationship : Emergency Contact #2 : Sumeet Emergency Contact #2 Emergency Contact #2 Relationship : son Information Obtained From : Patient, Medical Record Primary Language : [place] Citizen Preferred Communication Mode : Verbal Communication Barrier : None Objects to Sharing Info w Family : No ANGELA KEY RN - 11/15/2018 13:52 EDT Aiden Scale Aiden Sensory Perception : No impairment Aiden Moisture : Rarely moist Aiden Activity : Walks frequently Aiden Mobility : No limitation Aiden Nutrition : Adequate Aiden Friction and Shear : No apparent problem Aiden Score : 22 ANGELA KEY RN - 11/15/2018 13:52 EDT Sleep Apnea Risk Assmt Hx of [...] Sleep Apnea Risk Level Score : 5 ANGELA KEY RN - 11/15/2018 13:52 EDT Electronically signed by Parveen [facility] Conversion Clinical Nursing Manager Cerner at 12/08/2022 12:30 PM CDT documented in this encounter Plan of Treatment Not on file documented as of this encounter Visit Diagnoses Not on filedocumented in this encounter
--- OUTSIDE RECORDS SUMMARY | 2025-02-23 11:54 | XMS_ITS | Encounter Summary ---
Author Organization [employer] ([place], [place], [place], [place]) Address [address] [place] [address] Care Team Providers Care Commercial Fisher Name Role Phone Unavailable Primary Care Provider Unavailabl e Encounter Details Date Type Department Care Team (Late st Contact Info) Description 11/28/2018 Transcribed Document [facility] [place] Family Medicine [address] [place] [address] ProviderErika MD [address] [place], [place] [address] Social History Tobacco Use Types Packs/Day Years Used Date Smoking Tobacco: Never Assessed Sex and Gender Information Value Date Recorded Sex Assigned at Not on file Legal Sex Male 5:03 PM CDT Gender Identity Not on file Sexual Orientation Not on file documented as of this encounter Miscellaneous Notes * Cerner Conversion Note - Historical ProviderMD - 11/28/2018 8:17 PM CDT Education-Wound Care Entered On: 11/29/2018 1:39 EDT Performed On: 11/28/2018 20:17 EDT by CHARLES LIAO RN Teaching/Learning Assessment Barriers To Learning : None evident Highest Level of Education : University degree(s) Learning Style Preferences Patient : Verbal explanation Learning Style Preferences Family : None CHARLES LIAO RN - 11/29/2018 1:35 EDT Education Topics, Wound Care Wound Education Grid Hygiene : Verbalizes understanding Incontinence Management : Verbalizes understanding Plan of Care : Verbalizes understanding Positioning : Verbalizes understanding Pressure Relief : Verbalizes understanding Skin Care : Verbalizes understanding CHARLES LIAO RN - 11/29/2018 1:35 EDT documented in this encounter Plan of Treatment Not on file documented as of this encounter Visit Diagnoses Not on filedocumented in this encounter
--- OUTSIDE RECORDS SUMMARY | 2025-02-23 11:54 | XMS_ITS | Encounter Summary ---
Author Organization [employer] ([place], [place], [place], [place]) Address [address] [place] [address] Care Team Providers Care Metal Tank Builder Name Role Phone Unavailable Primary Care Provider Unavailabl e Encounter Details Date Type Department Care Team (Late st Contact Info) Description 11/05/2018 Transcribed Document [facility] [place] Family [facility] [address] [place] [address] ProviderErika MD [address] [place] [address] Social History Tobacco Use Types Packs/Day Years Used Date Smoking Tobacco: Never Assessed Sex and Gender Information Value Date Recorded Sex Assigned at Not on file Legal Sex Male 5:03 PM CDT Gender Identity Not on file Sexual Orientation Not on file documented as of this encounter Miscellaneous Notes * Cerner Conversion Note - Erika Jose MD - 11/05/2018 12:48 PM CDT Patient Education Materials Follows: Moderate Conscious Sedation, Adult, Care After These [...] you are awake and alert. ??? Take [id number] and prescription medicines only as told by [...] 05/31/2014 Document Revised: 01/12/2017 Document Reviewed: 11/29/2016 [employer] Patient Education ? 2017 [employer] Pulmonary Medicine Radial Site Care Introduction Refer to this [...] 01/15/2017 Document Reviewed: 02/26/2015 ? 2017 [employer] Radiology Angiogram, Care After Refer to this sheet [...] 02/26/2006 Document Revised: 01/15/2017 Document Reviewed: 01/11/2014 [employer] Interactive Patient Education ? 2017 [employer] Electronically signed by Christina Saini Conversion Experimental Mechanic Electrical Felipe at 12/08/2022 12:35 PM CDT documented in this encounter Plan of Treatment Not on file documented as of this encounter Visit Diagnoses Not on filedocumented in this encounter
--- OUTSIDE RECORDS SUMMARY | 2025-02-23 11:54 | XMS_ITS | Encounter Summary ---
Author Organization [employer] ([place], [place], [place], [place]) Address [address] [place] [address] Care Team Providers Care Keno Writer / Runner Name Role Phone Unavailable Primary Care Provider Unavailabl e Encounter Details Date Type Department Care Team (Late st Contact Info) Description 11/05/2018 Transcribed Document [facility] Cardiology [address] [place] [address] Lc Armendariz MD [address] [facility] [address] [place] [address] Social History Tobacco Use Types Packs/Day Years Used Date Smoking Tobacco: Never Assessed Sex and Gender Information Value Date Recorded Sex Assigned at Not on file Legal Sex Male 5:03 PM CDT Gender Identity Not on file Sexual Orientation Not on file documented as of this encounter Miscellaneous Notes * Cerner Conversion Note - Lc Armendariz MD - 11/05/2018 9:00 AM EDT Patient: DOTTIE VILLASENOR Age: 78 years Sex: Male : 1940 Associated Diagnoses: None Author: LC ARMENDARIZ MD-[facility] Basic Information PCP: Sanjuana Valdez Cardiology; Porfirio Combs MD Chief Complaint Surgical clearance History of Present Illness This is a 78 year old male with a history of HTN and hypothyroidism. He was seeb by Dr Combs for evalaution of a heart murumur. The patient underwent an echo that revealed severely dialated aorta. He then underwent a CT of the chest that showed an ascending thoracic aortic aneurysm of 6.2cm in tansverse diameter which will require surgery. He has been scheduled for cardiac cath to assess need for CABG while undergoing repair of aneurysm. Review of Systems Constitutional: Negative except as documented in history of present illness. Eye: Negative except as documented in history of present illness. Ear/Nose/Mouth/Throat: Negative except as documented in history of present illness. Respiratory: Negative except as documented in history of present illness. Cardiovascular: Negative except as documented in history of present illness. Gastrointestinal: Negative except as documented in history of present illness. Genitourinary: Negative except as documented in history of present illness. Hematology/Lymphatics: Negative except as documented in history of present illness. Endocrine: Negative except as documented in history of present illness. Immunologic: Negative except as documented in history of present illness. Musculoskeletal: Negative except as documented in history of present illness. Integumentary: Negative except as documented in history of present illness. Neurologic: Negative except as documented in history of present illness. Psychiatric: Negative except as documented in history of present illness. Health Status Allergies (1) Active Reaction No Known Medication Allergies None Documented Home Medications (1) Active Avodart 0.5 mg oral capsule , Oral, Daily Allergies: Allergic Reactions (Selected) No Known Medication Allergies Current medications: (Selected) Inpatient Medications Ordered Normal Saline Flush: 10 mL, IV Push, Q12H Normal Saline Flush: 10 mL, IV Push, See Comment, PRN: IV Use Sodium Chloride 0.9% intravenous solution 500 mL: Titrate, IntraVENous Documented Medications Documented Avodart 0.5 mg oral capsule: 1 Cap, Oral, At Bedtime, 0 Refill(s) levothyroxine 50 mcg (0.05 mg) oral tablet: 1 Tab, Oral, At Bedtime, 60 Tab, 0 Refill(s) losartan 100 mg oral tablet: 1 Tab, Oral, Daily, 0 Refill(s) metoprolol extended release: 1 Tab, Oral, Daily, 0 Refill(s) rOPINIRole 2 mg oral tablet: 1 Tab, Oral, Daily, 0 Refill(s) Problem list: All Problems Prostate stricture / SNOMED CT 76015037 / Confirmed HTN - Hypertension / SNOMED CT 7351193193 / Confirmed Hypothyroidism / SNOMED CT 39229101 / Confirmed Aneurysm / SNOMED CT 8895659854 / Confirmed Disorder of prostate / SNOMED CT 84251243 / Confirmed Thyroid disease / SNOMED CT 442055776 / Confirmed Restless legs syndrome / SNOMED CT 56020450 / Confirmed Cancer of skin of face / SNOMED CT 6961145729 / Confirmed At risk for sleep apnea / IMO 65391591 / Confirmed Resolved: Bladder stone / SNOMED CT 862007618 Histories No education data available. Social & Psychosocial Habits Alcohol 04/16/2017 Alcohol Use History, Social Habits No Alcohol Use in Last Twelve Months No Substance Abuse 04/16/2017 Recreational Drug Use History No Recreational Drug Use Last 12 Months No Tobacco 04/16/2017 Smoking Status Never smoker Past Medical History: Active HTN - Hypertension (4184341703) Hypothyroidism (42221011) Family History: Entire family history is negative. Procedure history: cholescystectoy. right inguinal hernia repair. colonoscopy. Left hernia repair. Bladder stone removed. skin cancer removed from nose. Social History Social & Psychosocial Habits Alcohol 04/16/2017 Alcohol Use History, Social Habits No Alcohol Use in Last Twelve Months No Substance Abuse 04/16/2017 Recreational Drug Use History No Recreational Drug Use Last 12 Months No Tobacco 04/16/2017 Smoking Status Never smoker . Physical Examination General: Alert and oriented. Eye: Pupils are equal, round and reactive to light. HENT: Normocephalic. Neck: Supple, No carotid bruit, No jugular venous distention. Respiratory: Lungs are clear to auscultation, Respirations are non-labored, Breath sounds are equal. Cardiovascular: Normal rate, Regular rhythm, No murmur, No gallop, Good pulses equal in all extremities. Gastrointestinal: Soft, Non-tender, Non-distended, Normal bowel sounds. Musculoskeletal: Normal range of motion, Normal strength. Integumentary: Warm, Dry, [place]. Neurologic: Alert, Oriented. Psychiatric: Cooperative. Review / Management No qualifying data available Cardiac Markers (Current Encounter/Past 24 Hours) No Cardiac Marker Results Found (Past 24 Hours) Blood Gases (Current Encounter/Past 24 Hours) No Blood Gas Results Found (Past 24 Hours) No Radiology Results Found Results review: No qualifying data available. Impression and Plan IMPRESSION: * Ascending thoracic aortic aneurysm of 6.2cm in tansverse diameter * HTN * Hypothyroidism PLAN; Coronary angiogram. Risks, benefris, and alternative therapy discussed with the patient in detail. He has given verbal and written consent. documented in this encounter Plan of Treatment Not on file documented as of this encounter Visit Diagnoses Not on filedocumented in this encounter
--- OUTSIDE RECORDS SUMMARY | 2025-02-23 11:54 | XMS_ITS | Encounter Summary ---
Author Organization [employer] ([place], [place], [place], [place]) Address [address] [place] [address] Care Team Providers Care Bee Robber Name Role Phone Unavailable Primary Care Provider Unavailabl e Encounter Details Date Type Department Care Team (Late st Contact Info) Description 11/16/2018 Transcribed Document [facility] [place] [address] [place] [address] ProviderErika MD [address] [id number] Social History Tobacco Use Types Packs/Day Years Used Date Smoking Tobacco: Never Assessed Sex and Gender Information Value Date Recorded Sex Assigned at Not on file Legal Sex Male 5:03 PM CDT Gender Identity Not on file Sexual Orientation Not on file documented as of this encounter Miscellaneous Notes * Cerner Conversion Note - Erika Jose MD - 11/16/2018 7:08 AM CDT Patient: DOTTIE VILLASENOR Age: 78 years Sex: Male : 1940 Associated Diagnoses: None Author: COREY MADRIGAL APRN Chief Complaint CAD, KATHRYN, ascending aortic aneurysm Review of Systems ROS reviewed as documented in chart no change since last seen by surgeon Health Status Allergies: Allergic Reactions (Selected) No Known Allergies No Known Medication Allergies, Allergies (2) Active Reaction No Known Allergies None Documented No Known Medication Allergies None Documented Current medications: (Selected) Inpatient Medications Ordered Ancef: 2 Gram, 50 mL, 100 mL/Hr, IV Piggyback, PREOP Bactroban 2% nasal ointment: 1 Application, Nostrils Both, BID Lactated Ringers Injection intravenous solution 1,000 mL: 20 mL/Hr, IntraVENous Lactated Ringers Injection intravenous solution 1,000 mL: 30 mL/Hr, IntraVENous Nitrostat: 0.4 mg, SubLINgual, Q5Min, PRN: Pain albuterol CFC free 90 mcg/inh inhalation aerosol with adapter: 2 Puff, Inhalation, 1-Time lidocaine 1% preservative-free injectable solution: 0.5 mL, IntraDermal, 1-Time midazolam: 2 mg, IV Push, Q10Min, PRN: Anxiety Documented Medications Documented Avodart 0.5 mg oral capsule: 1 Cap, Oral, AC Dinner, 0 Refill(s) levothyroxine 50 mcg (0.05 mg) oral tablet: 1 Tab, Oral, Daily, 60 Tab, 0 Refill(s) losartan 100 mg oral tablet: 1 Tab, Oral, Daily, 0 Refill(s) metoprolol extended release: 50 mg, Oral, Daily, 0 Refill(s) rOPINIRole 2 mg oral tablet: 1 Tab, Oral, At Bedtime, 0 Refill(s), Home Medications (5) Active Avodart 0.5 mg oral capsule 0.5 mg = 1 Cap, Oral, AC Dinner levothyroxine 50 mcg (0.05 mg) oral tablet 50 mcg = 1 Tab, Oral, Daily losartan 100 mg oral tablet 100 mg = 1 Tab, Oral, Daily metoprolol extended release 50 mg, Oral, Daily rOPINIRole 2 mg oral tablet 2 mg = 1 Tab, Oral, At Bedtime , Medications (8) Active Scheduled: (4) albuterol 90 mcg/1 puff inh 6.7 g 2 Puff, Inhalation, 1-Time ceFAZolin/D5w 2 Gram 50 mL, IV Piggyback, PREOP lidocaine 1% *PF* inj 2 mL 0.5 mL, IntraDermal, 1-Time mupirocin 2% nasal oint 1 g 1 Application, Nostrils Both, BID Continuous: (2) lactated ringers 1,000 mL 1,000 mL, IntraVENous, 30 mL/Hr lactated ringers 1,000 mL 1,000 mL, IntraVENous, 20 mL/Hr PRN: (2) midazolam 1 mg/1 mL inj 2 mL 2 mg 2 mL, IV Push, Q10Min nitroglycerin 0.4 mg tab # 25 btl 0.4 mg 1 Tab, SubLINgual, Q5Min Problem list: All Problems Prostate stricture / SNOMED CT 70659745 / Confirmed Restless legs syndrome / SNOMED CT 45094354 / Confirmed Nocturia / SNOMED CT 061300905 / Confirmed Cancer of skin of face / SNOMED CT 1339788318 / Confirmed Frequent urination / SNOMED CT 255513034 / Confirmed Hypothyroidism / SNOMED CT 23865837 / Confirmed HTN - Hypertension / SNOMED CT 4819722025 / Confirmed Disorder of prostate ( enlarged) / SNOMED CT 47581303 / Confirmed CAD (coronary artery disease) / SNOMED CT 21635270 / Confirmed At risk for sleep apnea / IMO 01654440 / Confirmed Arthritis / SNOMED CT 9539593 / Confirmed Aortic valve insufficiency / SNOMED CT 515436855 / Confirmed Aneurysm, thoracic aortic / SNOMED CT 4622400078 / Confirmed, Active Problems (13) Aneurysm, thoracic aortic Aortic valve insufficiency Arthritis At risk for sleep apnea CAD (coronary artery disease) Cancer of skin of face Disorder of prostate ( enlarged) Frequent urination HTN - Hypertension Hypothyroidism Nocturia Prostate stricture Restless legs syndrome Histories Past Medical History: Active HTN - Hypertension (6819353859) Hypothyroidism (07125346) Family History: Entire family history is negative. [...] Smoking Status Never smoker . Physical Examination VS/Measurements Vital Signs/Vital Measures 11/16/2018 7:00 EDT Temperature Source Temporal artery scanning Temperature Mode Fahrenheit Temperature, Fahrenheit 98.7 Deg F Heart Rate Monitored 58 bpm LOW Respiratory Rate 18 Breaths/Min Systolic Blood Pressure 193 mmHg HI Diastolic Blood Pressure 82 mmHg Oxygen Saturation 96 % Oxygen Therapy Mode Room air , Vitals Signs (last 24 hrs) Last Charted Minimum Maximum Temp 98.7 (NOV 16 07:00) 98.7 (NOV 16 07:00) 98.7 (NOV 16 07:00) Mon HR 58 (NOV 16 07:00) 58 (NOV 16 07:00) 58 (NOV 16 07:00) Resp Rate 18 (NOV 16 07:00) 18 (NOV 16 07:00) 18 (NOV 16 07:00) SBP H 193 (NOV 16 07:00) H 193 (NOV 16 07:00) H 193 (NOV 16 07:00) DBP 82 (NOV 16 07:00) 82 (NOV 16 07:00) 82 (NOV 16 07:00) SpO2 96 (NOV 16 07:00) 96 (NOV 16 07:00) 96 (NOV 16 07:00) , Measurements from flowsheet : Measurements 11/15/2018 13:52 EDT Height Source Measured Height Entry Format [place] Height/Length, DANISH (ft) 6 ft Height/Length DANISH 1 Inch CLINICALHEIGHT 185.42 cm [place] Body Weight 79 kg Weight Source Standing scale Weight Entry Format [place] Weight Czech lb 174 lb Weight Czech oz 5 oz CLINICALWEIGHT 79.23 kg Body Surface Area (BSA) 2.03 m2 Body Mass Index 23 kg/m2 General: Alert and oriented, No acute distress. Eye: Pupils are equal, round and reactive to light, Extraocular movements are intact, glasses. HENT: Normocephalic, Normal hearing. Neck: Supple, Non-tender. Respiratory: Lungs are clear to auscultation, Respirations are non-labored. Cardiovascular: Normal rate, Regular rhythm, No gallop, No edema, murmur 2/6. Gastrointestinal: Soft, Non-tender. Genitourinary: No costovertebral angle tenderness. Lymphatics: No lymphadenopathy neck, axilla, groin. Musculoskeletal: Normal range of motion, Normal strength. Integumentary: Warm, Dry, [place]. Neurologic: Alert, Oriented. Psychiatric: Cooperative, Appropriate mood & affect. Review / Management Results review: Labs (Last four charted values) WBC 7.2 (NOV 15) HB 13.6 (NOV 15) HCT 41.9 (NOV 15) Plt 204 (NOV 15) Na 140 (NOV 15) K 4.3 (NOV 15) Cl 105 (NOV 15) CO2 31 (NOV 15) BUN 18 (NOV 15) Cr 1.00 (NOV 15) Glu R 89 (NOV 15) Ca 8.7 (NOV 15) PT 11.3 (NOV 15) INR 1.0 (NOV 15) PTT 25.7 (NOV 15) AST 29 (NOV 15) ALT 33 (NOV 15) ALK P 65 (NOV 15) T Bili H 1.9 (NOV 15) PTN 6.5 (NOV 15) ALB 3.7 (NOV 15) , Lab results 11/16/2018 6:29 EDT eGFR 78 mL/min/1.73m2 eGFR NonAfrican 65 mL/min/1.73m2 Creatinine POC 1.1 mg/dL 11/16/2018 6:25 EDT ABO/Rh Repeat O POS 11/15/2018 14:15 EDT Sodium Level 140 mmol/L Potassium Level 4.3 mmol/L Chloride Level 105 mmol/L Carbon Dioxide Level 31 mmol/L Anion Gap 8 LOW Glucose Level 89 mg/dL Blood Urea Nitrogen 18 mg/dL CREATININE 1.00 mg/dL eGFR >60 mL/min/1.73m2 eGFR NonAfrican >60 mL/min/1.73m2 Bun/Creatinine 18.0 Calcium Level 8.7 mg/dL Protein Total 6.5 Gram/dL Albumin Level 3.7 Gram/dL Globulin 2.8 Gram/dL A/G Ratio 1.3 Bilirubin Total 1.9 mg/dL HI Alk Phos 65 Units/Liter AST 29 Units/Liter ALT 33 Units/Liter Hgb A1C 6.00 % eAVG Glucose 126 mg/dL NA WBC 7.2 K/uL RBC 4.72 Million/uL Hgb 13.6 g/dL Hct 41.9 % MCV 88.8 fL MCH 28.8 pg MCHC 32.5 Gram/dL Platelet Count 204 K/uL MPV 10.8 fL RDW 14.2 % Neut % 56.0 % Neut # 4.00 K/uL Lymph % 32.4 % Lymph # 2.32 x10(3)/uL [place] % 9.5 % [place] # 0.68 K/uL Eos % 1.1 % Eos # 0.08 x10(3)/uL Baso % 0.7 % Baso # 0.05 x10(3)/uL Slide Review No IG# 0.02 x10(3)/uL IG% 0.30 % PT 11.3 Second(s) INR 1.0 PTT 25.7 Second(s) Cholesterol Tot 129 mg/dL Triglyceride 59 mg/dL Cholesterol HDL 55.0 mg/dL NA Cholesterol LDL Calculation 62.2 mg/dL Cholesterol/HDL Ratio 2.3 LDL/HDL Ratio 1.1 Cholesterol VLDL Calculation 11.8 mg/dL ABO/Rh O POS Antibody Screen Negative ABSC Crossmatch Computer XM OK Crossmatch Computer XM OK 11/15/2018 13:34 EDT Urine Type U CleanCatch Urine Color Yellow Urine Appearance Clear Urine Specific [place] 1.016 Urine pH Dipstick 6.5 Urine Leukocyte Esterase Negative Urine Nitrite Negative Urine Protein Dipstick Negative Urine Glucose Dipstick Negative Urine Ketones Dipstick Negative Urine Urobilinogen Dipstick 0.2 EU/dL Urine Bilirubin Dipstick Negative Urine Blood Dipstick Negative 11/15/2018 13:33 EDT RBC Product Ready RBC Ready # of Units 2 . Impression and Plan Condition: Stable. documented in this encounter Plan of Treatment Not on file documented as of this encounter Visit Diagnoses Not on filedocumented in this encounter
== END 2025-02-21 23:59 | disposition home or self-care (01) ==
LOC: LAB.DROPOF 02-23 11:50
PROVIDERS: PCP Internal Medicine; Visit Provider Internal Medicine
DX: N39.0 Urinary tract infection, site not specified (principal)
CPT/HCPCS: 87086; 87088; 87186

== ENCOUNTER 2025-03-02 15:26 | Outpatient (CLI) | payer MEDICARE, SELFPAY ==
--- OUTSIDE RECORDS SUMMARY | 2025-03-02 15:29 | XMS_ITS | Encounter Summary ---
Author Organization [employer] ([place], [place], [place], [place]) Address [address] [place] [address] Care Team Providers Care Waistband Setter Lockstitch Name Role Phone Unavailable Primary Care Provider Unavailabl e Encounter Details Date Type Department Care Team (Late st Contact Info) Description 11/22/2018 Transcribed Document [facility] [place] [address] [place] [address] ProviderErika MD [address] [place] [address] Social History Tobacco Use Types [...] Source : Measured Height Entry Format : [place] Height, Feet : 6 ft Height, Inches : 1 Inch Clinical Height : 185.42 cm Amanda Sigala RN - 11/22/2018 6:08 EDT Amanda Sigala RN - 11/22/2018 6:15 EDT Electronically signed by Christina Saini Conversion Commercial Real Estate Attorney Cerner at 12/08/2022 12:34 PM CDT documented in this encounter Plan of Treatment Not on file documented as of this encounter Visit Diagnoses Not on filedocumented in this encounter
--- OUTSIDE RECORDS SUMMARY | 2025-03-02 15:29 | XMS_ITS | Encounter Summary ---
Author Organization [employer] ([place], [place], [place], [place]) Address [address] [place] [address] Care Team Providers Care Income Tax Investigator Name Role Phone Unavailable Primary Care Provider Unavailabl e Encounter Details Date Type Department Care Team (Late st Contact Info) Description 11/17/2018 Transcribed Document [facility] [place] Medicine [address] [place] [address] ProviderErika MD [address] [place] [address] Social History Tobacco Use Types Packs/Day Years Used Date Smoking Tobacco: Never Assessed Sex and Gender Information Value Date Recorded Sex Assigned at Not on file Legal Sex Male 5:03 PM CDT Gender Identity Not on file Sexual Orientation Not on file documented as of this encounter Miscellaneous Notes * Cerner Conversion Note - Erika Joes MD - 11/17/2018 11:22 AM CDT Care Management Assessment/Plan Entered On: 11/17/2018 11:25 EDT Performed On: 11/17/2018 11:22 EDT by ODALYS FAULKNER Rn-Game And Fish ProtectorInternal Medicine Physician Assistant Note Documentation Status Complete : Yes ODALYS FAULKNER Rn-Game And Fish Protector - 11/17/2018 11:22 EDT Patient History Information [...] when pt is awake. CF ODALYS FAULKNER, Rn-Game And Fish Protector - 11/17/2018 11:22 EDT documented in this encounter Plan of Treatment Not on file documented as of this encounter Visit Diagnoses Not on filedocumented in this encounter
--- OUTSIDE RECORDS SUMMARY | 2025-03-02 15:29 | XMS_ITS | Encounter Summary ---
Author Organization [employer] ([place], [place], [place], [place]) Address [address] [place] [address] Care Team Providers Care Certified Medical Transcriptionist Name Role Phone Unavailable Primary Care Provider Unavailabl e Encounter Details Date Type Department Care Team (Late st Contact Info) Description 11/22/2018 Transcribed Document [facility] [place] [address] [place] [address] ProviderErika MD [address] [place] [address] Social History Tobacco Use Types [...] On: 11/22/2018 9:23 EDT by JOSSUE RODRÍGUEZ PULLEY MAINTAINER General Information Visit Type, PULLEY MAINTAINER : Re-Evaluation Patient Orders : PULLEY MAINTAINER Fxnl Limitation Documentation x 1 -111 Start: 11/22/18 8:22:14 EDT - SYSTEM, SYSTEM FEES - Start: 11/22/18 8:21:00 EDT, Routine, For Swallow Eval and Treat -111 MARIEL ROBLES PA PULLEY MAINTAINER Fxnl Limitation Documentation - Start: 11/20/18 9:37:47 EDT, Continuous Order -111 SYSTEM, SYSTEM Speech Language Pathology Additional Tx - Start: 11/20/18 9:36:00 EDT, For Dysphagia, Continuous Order -111 Admission Date : Admission Date/Time: 11/16/18 06:45:00 Medical Chart Reviewed, PULLEY MAINTAINER : Yes Personal Devices : Personal Devices No Devices Recorded Assistive Devices : Assistive Devices No Devices Recorded Active Diagnoses : 11/17/2018 00:00 Atherosclerotic heart disease of [place] coronary artery without angina pectoris 11/17/2018 00:00 Essential (primary) hypertension 11/17/2018 00:00 Hypothyroidism, unspecified 11/17/2018 00:00 Nonrheumatic aortic (valve) insufficiency 11/17/2018 00:00 Restless legs syndrome 11/17/2018 00:00 Thoracic aortic aneurysm, without rupture 11/17/2018 00:00 Thrombocytopenia, unspecified 11/16/2018 00:00 Atherosclerotic heart disease of [place] coronary artery without angina pectoris 11/16/2018 00:00 Nonrheumatic aortic (valve) insufficiency 11/16/2018 00:00 Thoracic aortic aneurysm, without rupture Therapy Diagnosis, PULLEY MAINTAINER : normal oral skills, moderate pharyngeal dysphagia Previous Speech/Language Evaluations : N/A Previous Swallow Precautions : Bedside 11/20 recommended instrumental prior to initiating PO diet Previous Cognitive Evaluations : N/A Diet/Intake Prior to Current Admission : Regular/thin Diet/Intake During Current Admission : NPO with TF via [place] Gag Reflex Intact : Yes Intubation Comment, PULLEY MAINTAINER : 11/16-11/17 Vital Signs RTF : Vitals [...] 9:23 EDT General Status Patient Received Status, PULLEY MAINTAINER : Long sitting in bed Patient Left Status, PULLEY MAINTAINER : Long sitting in bed JOSSUE RODRÍGUEZ [...] Consistencies Trialed FEES : Thin by straw, [place] by straw, Pureed, Regular solids JOSSUE RODRÍGUEZ SLP - 11/22/2018 9:23 EDT Swallow Impressions Impressions, FEES : Pharyngeal dysphagia JOSSUE RODRÍGUEZ SLP - 11/22/2018 9:23 EDT 8 Point Penetration/Aspiration Grid Thin by Straw : 8 [place] by Straw : 1 Pureed : 1 [...] : Regular Recommended Liquid Diet, SwRec : [place] Feeding Presentation Style, SwRec : No restrictions Swallow Position, SwRec : Upright 90 degrees Supervision Level w/Meals, SwRec : Assist, standby Recommended Med Present, SwRec : Crushed, Whole, With nectar, With puree/pudding, No medications with water Recommended Exam, Sw Rec : FEES Repeat Swallow Exam Timeframe : 3-6 days JOSSUE RODRÍGUEZ SLP - 11/22/2018 9:34 EDT Therapy Indication Assessment PULLEY MAINTAINER Indicated : Yes PULLEY MAINTAINER Problem List : Impaired, Swallowing JOSSUE RODRÍGUEZ SLP - 11/22/2018 9:34 EDT Swallow Plan/Goals Treatment Frequency, PULLEY MAINTAINER : 5 times per wk Treatment Plan Est w/Pt/Caregvr, Swallow : Yes JOSSUE RODRÍGUEZ SLP - 11/22/2018 9:34 EDT Swallow LTG Grid PULLEY MAINTAINER Mcfp Goal #1 PULLEY MAINTAINER Investigations Manager Goal #2 Swallow LTG : Establish safe [...] JOSSUE RODRÍGUEZ SLP - 11/22/2018 9:34 EDT PULLEY MAINTAINER Education Assessment Grid 1 Aspiration : Needs further teaching Diet Recommendation : Needs further teaching Dysphagia : Needs further teaching Free Water Protocol : Needs further teaching Ice Chips : Needs further teaching Oral Care : Needs further teaching JOSSUE RODRÍGUEZ SLP - 11/22/2018 9:34 EDT PULLEY MAINTAINER Education Assessment Grid 2 Speech Language Pathology Treatment Plan : Needs further teaching JOSSUE RODRÍGUEZ SLP - 11/22/2018 9:[address] [place] PULLEY MAINTAINER Charges FEES : 1 JOSSUE RODRÍGUEZ SLP - 11/22/2018 9:34 EDT documented in this encounter Plan of Treatment Not on file documented as of this encounter Visit Diagnoses Not on filedocumented in this encounter
--- OUTSIDE RECORDS SUMMARY | 2025-03-02 15:29 | XMS_ITS | Encounter Summary ---
Author Organization [employer] ([place], [place], [place], [place]) Address [address] [place] [address] Care Team Providers Care Aws Software Development Engineer Name Role Phone Unavailable Primary Care Provider Unavailabl e Encounter Details Date Type Department Care Team (Late st Contact Info) Description 11/17/2018 Transcribed Document [facility] [place] [address] [place] [address] ProviderErika MD [address] [place] [address] Social History Tobacco Use Types [...] Source : Measured Height Entry Format : [place] Height, Feet : 6 ft Height, Inches [...]
--- OUTSIDE RECORDS SUMMARY | 2025-03-02 15:29 | XMS_ITS | Encounter Summary ---
Author Organization [employer] ([place], [place], [place], [place]) Address [address] [place] [address] Care Team Providers Care Tongue And Groove Machine Operator Name Role Phone Unavailable Primary Care Provider Unavailabl e Encounter Details Date Type Department Care Team (Late st Contact Info) Description 11/22/2018 Transcribed Document [facility] [place] Family Medicine [address] [place] [address] ProviderErika MD [address] [place] [address] Social History Tobacco Use Types [...] On: 11/22/2018 13:55 EDT by ODALYS FAULKNER Rn-Radiology TransporterEntry Examiner Note Care Management Note : 11/22/18 Pt has had a cva. Spoke to his Connie and son Sumeet at the bedside. Pt is lfacid on the left side. Discussed the need for STR and they decided on [facility]. Sent pt info via Chug to [facility]. CF Documentation Status Complete : Yes ODALYS FAULKNER Rn-Radiology Transporter - 11/22/2018 13:55 EDT Patient History Emergency Contact #1 : Connie Emergency Contact #1 (H) Emergency Contact #1 Relationship : Emergency Contact #2 : Sheridan Fernando Emergency Contact #2 (C) Emergency Contact #2 Relationship : daughter Living Situation : Home Patient Lives With : Spouse Current Home Treatments : None Patient History Note Report : ODALYS FAULKNER Rn-Radiology Transporter - 11/17/18 11:25:13 11/17/18 Pt sleeping and [...] when pt is awake. CF ODALYS FAULKNER Rn-Radiology Transporter - 11/22/2018 13:55 EDT Electronically signed by [facility], [facility] Conversion Superintendent Marine Oil Terminal Cerner at 12/08/2022 12:32 PM CDT documented in this encounter Plan of Treatment Not on file documented as of this encounter Visit Diagnoses Not on filedocumented in this encounter
--- OUTSIDE RECORDS SUMMARY | 2025-03-02 15:29 | XMS_ITS | Encounter Summary ---
Author Organization [employer] ([place], [place], [place], [place]) Address [address] [place] [address] Care Team Providers Care Polishing Wheel Setter Name Role Phone Unavailable Primary Care Provider Unavailabl e Encounter Details Date Type Department Care Team (Late st Contact Info) Description 11/17/2018 Transcribed Document [facility] [address] [place] [address] Lc Armendariz MD [address] [facility] [address] [place] [address] Social History Tobacco Use Types [...] MD-CAR Basic Information PCP: Sanjuana Espino MD Grinder Hand: Porfirio Combs MD Chief Complaint s/p bioprosthetic [...] list: All Problems Aneurysm, thoracic aortic / 2395620484 / Confirmed Aortic valve insufficiency / 750133452 / Confirmed Arthritis / 1770529 / Confirmed At risk for sleep apnea / 36346487 / Confirmed CAD (coronary artery disease) / 48475561 / Confirmed Disorder of prostate ( enlarged) / 82126657 / Confirmed HTN - Hypertension / 6528863698 / Confirmed Hypothyroidism / 85189982 / Confirmed Frequent urination / 957441792 / Confirmed Cancer of skin of face / 3045346619 / Confirmed Nocturia / 998427266 / Confirmed Restless legs syndrome / 89492396 / Confirmed Prostate stricture / 09380623 / Confirmed Resolved: Bladder stone / 678600971 Canceled: Aneurysm / 2949081035 Canceled: Thyroid disease / 083601540 Histories No education data available. Social & Psychosocial Habits Alcohol 04/16/2017 Alcohol Use History, Social Habits No Alcohol Use in Last Twelve Months No Home/Environment 11/15/2018 Lives with: Spouse Living situation: Home/Independent Substance Abuse 04/16/2017 Recreational Drug Use History No Recreational Drug Use Last 12 Months No Tobacco 04/16/2017 Smoking Status Never smoker Past Medical History: Active HTN - Hypertension (2610399907) Hypothyroidism (43665344) Family History: Entire family history is negative. [...] No tenderness, No swelling. Integumentary: Warm, Dry, [place]. Neurologic: Not alert, Not oriented. Psychiatric: not [...] 11/17/2018 05:17 Radiology Results (Last 48 hours) [id number] -- 11/16/2018 06:45 CR Chest 2 Vws [...] Anasogastric tube extends below the diaphragm. Left-sided Mobile-Ganzcatheter tip is in the left main pulmonary [...] day.FINDINGS: The heart is normal in size. Mobile-Jovanna catheter tips in theleft pulmonary artery. There [...]
--- OUTSIDE RECORDS SUMMARY | 2025-03-02 15:29 | XMS_ITS | Encounter Summary ---
Author Organization [employer] ([place], [place], [place], [place]) Address [address] [place] [address] Care Team Providers Care Rental Car Ferry Driver Name Role Phone Unavailable Primary Care Provider Unavailabl e Encounter Details Date Type Department Care Team (Late st Contact Info) Description 11/17/2018 Transcribed Document [facility] Family Medicine [address] [place] [address] ProviderErika MD [address] [place] [address] Social History Tobacco Use [...] Historical ProviderMD - 11/17/2018 2:00 AM CDT Test Examiner Details Entered On: 11/17/2018 7:39 EDT Performed [...] EDT Electronically signed by Christina Saini Conversion Performance Test Consultant Cerner at 12/08/2022 12:10 PM CDT documented in this encounter Plan of Treatment Not on file documented as of this encounter Visit Diagnoses Not on filedocumented in this encounter
--- OUTSIDE RECORDS SUMMARY | 2025-03-02 15:29 | XMS_ITS | Encounter Summary ---
Author Organization [employer] ([place], [place], [place], [place]) Address [address] [place] [address] Care Team Providers Care Box Brander Name Role Phone Unavailable Primary Care Provider Unavailabl e Encounter Details Date Type Department Care Team (Late st Contact Info) Description 11/22/2018 Transcribed Document [facility] Family Medicine [address] [place] [address] ProviderErika MD [address] [place] [address] Social History Tobacco Use Types [...] EDT by LEONEL GUZMAN Chaplain General Information Jain Preference : Amish LEONEL GUZMAN Chaplain - 11/24/2018 2:35 EDT Spiritual Assessment Spiritual Assessment Comment/Summary Points : Prov. empathetic engaged listening: Pt. is Amish, spouse & son visit pt. regularly, Spouse & Pt. in their late teens. Pt. enjoys reminiscing and story telling, Pt. looking forward to [facility] rehab noting he wants/needs to work hard, [...]
--- OUTSIDE RECORDS SUMMARY | 2025-03-02 15:29 | XMS_ITS | Encounter Summary ---
Author Organization [employer] ([place], [place], [place], [place]) Address [address] [place] [address] Care Team Providers Care Online Media Director Name Role Phone Unavailable Primary Care Provider Unavailabl e Encounter Details Date Type Department Care Team (Late st Contact Info) Description 11/21/2018 Transcribed Document [facility] [place] [address] [place] [address] ProviderErika MD [address] [place] [address] Social History Tobacco Use Types [...] Source : Measured Height Entry Format : [place] Height, Feet : 6 ft Height, Inches [...]
--- OUTSIDE RECORDS SUMMARY | 2025-03-02 15:30 | XMS_ITS | Encounter Summary ---
Author Organization [employer] ([place], [place], [place], [place]) Address [address] [place] [address] Care Team Providers Care Transplanter Orchid Name Role Phone Unavailable Primary Care Provider Unavailabl e Encounter Details Date Type Department Care Team (Late st Contact Info) Description 11/25/2018 Transcribed Document [facility] [address] [place] [address] ProviderErika MD [address] [place], [place] [id number] Social History Tobacco Use Types Packs/Day Years [...] 1940 Associated Diagnoses: CAD (coronary artery disease), [place] coronary artery; Thrombocytopenia; Coronary artery disease; HTN [...] left upper extremity swelling. Integumentary: Warm, Dry, [place], incision is C/D/I. Neurologic: Alert, left sided [...] of discharge- CM has sent information to [facility] -[facility] -POD#8 -[facility] -Awaiting response from [facility] 11/25/18 -left upper extremity venous doppler - doppler this am positive for LUE DVT - will start coumadin and heparin bridge -awaiting [facility] EF 55-60% per echo 11/16/18 DVT Prophylaxis: SCDs Diagnosis CAD (coronary artery disease), [place] coronary artery - Admitting, Medical. Thrombocytopenia - [...]
--- OUTSIDE RECORDS SUMMARY | 2025-03-02 15:30 | XMS_ITS | Encounter Summary ---
Author Organization [employer] ([place], [place], [place], [place]) Address [address] [place] [address] Care Team Providers Care Boiler Room Helper Name Role Phone Unavailable Primary Care Provider Unavailabl e Encounter Details Date Type Department Care Team (Late st Contact Info) Description 11/29/2018 Transcribed Document [facility] [place] [facility] [place] [address] ProviderErika MD [address], [place] [id number] Social History Tobacco Use Types Packs/Day Years [...] Time: 11/29/18 14:51:00 (EDT) (11/29/18 14:59:15 EDT) Electronically signed by hCristina Saini Conversion Executive Administrative Assistant Cerner at 12/08/2022 12:28 PM CDT documented in this encounter Plan of Treatment Not on file documented as of this encounter Visit Diagnoses Not on filedocumented in this encounter
--- OUTSIDE RECORDS SUMMARY | 2025-03-02 15:30 | XMS_ITS | Encounter Summary ---
Author Organization [employer] ([place], [place], [place], [place]) Address [address] [place] [address] Care Team Providers Care Die Fitter Name Role Phone Unavailable Primary Care Provider Unavailabl e Encounter Details Date Type Department Care Team (Late st Contact Info) Description 11/30/2018 Transcribed Document [facility] [place] [address] [place] [address] ProviderErika MD [address] [place] [address] Social History Tobacco Use Types [...] CHIQUI STATON RN - 11/30/2018 18:02 EDT Electronically signed by Christina Saini Conversion Supervisor [employer] Cleaning [employer] Storage Cerner at 12/08/2022 12:16 PM CDT documented in this encounter Plan of Treatment Not on file documented as of this encounter Visit Diagnoses Not on filedocumented in this encounter
--- OUTSIDE RECORDS SUMMARY | 2025-03-02 15:30 | XMS_ITS | Encounter Summary ---
Author Organization [facility] Address [address] [place] [address] Care Team Providers Care Hard Rock Drill Operator Name Role Phone Sanjuana Valdez APRN Primary Care Provider [phone] Clifford Horner MD Primary Care Provider [phone] Encounter Details Date Type Department Care Team (Late st Contact Info) Description 06/02/2022 [facility] [address] [place] [address] Joanna Zamora, DPM [address] [place], [place] [id number] Contracture of left ankle (Primary Dx); Contracture [...] foot documented in this encounter Care Teams Hard Rock Drill Operator Relationship Specialty Start Date End Date Sanjuana Valdez APRN [address] [place] [address] PCP - General 01/04/21 07/13/24 Clifford Horner MD [address] [place] [address] PCP - General 07/14/24 documented as of this encounter
--- OUTSIDE RECORDS SUMMARY | 2025-03-02 15:30 | XMS_ITS | Encounter Summary ---
Author Organization [employer] ([place], [place], [place], [place]) Address [address] [place] [address] Care Team Providers Care Tire Balancer Name Role Phone Unavailable Primary Care Provider Unavailabl e Encounter Details Date Type Department Care Team (Late st Contact Info) Description 11/18/2018 Transcribed Document [facility] [place] [address] [place] [address] ProviderErika MD [address] [place] [address] Social History Tobacco Use Types [...] Source : Measured Height Entry Format : [place] Height, Feet : 6 ft Height, Inches [...]
--- OUTSIDE RECORDS SUMMARY | 2025-03-02 15:30 | XMS_ITS | Encounter Summary ---
Author Organization [employer] ([place], [place], [place], [place]) Address [address] [place] [address] Care Team Providers Care Retail Analytics Manager Name Role Phone Unavailable Primary Care Provider Unavailabl e Encounter Details Date Type Department Care Team (Late st Contact Info) Description 11/30/2018 Transcribed Document [facility] Family Medicine [address] [place] [address] ProviderErika MD [address] [place], [place] [id number] Social History Tobacco Use Types Packs/Day Years [...] 1940 Associated Diagnoses: CAD (coronary artery disease), [place] coronary artery; Thrombocytopenia; Coronary artery disease; HTN [...] Non-distended, Normal bowel sounds. Integumentary: Warm, Dry, [place], incision is C/D/I. Neurologic: Alert, left sided [...] (Current Encounter/Past 24 Hours) PT 27.4 Second(s) [place] 11/30/2018 07:23 INR 2.6 [place] 11/30/2018 07:23 . Impression and Plan Plan: [...] of discharge- CM has sent information to [facility] -Transfer to [facility] 11/24/18 -POD#8 -Awaiting transfer to [facility] -Awaiting response from [facility] 11/25/18 -POD#9 -left upper extremity venous doppler - doppler this am positive for LUE DVT - will start coumadin and heparin bridge -awaiting [facility] 11/26/18 -POD#10 -Heparin drip and coumadin for LUE DVT -Left arm swelling improved today -INR 1.1 today, INR goal 2-3 -Possibly transfer to [facility] this weekend 11/27/18: -POD#11 -Left arm swelling continues to improve -Continues on Coumadin and heparin bridge -INR: 1.4 (1.1 yesterday) goal: 2 to 3 -[facility] soon,? Tomorrow 11/28/18: -POD#12 -BP in 70s-80s this AM -He had a dark black stool and has had a couple of fluid boluses -Heparin was D/C'd and his INR is 2.0 this AM (on coumadin 5mg qd) -Hct is down to 23.6 -GI med has been consulted and he is to undergo EGD -Also some blood has been set up. -Transferred to [facility] 11/29/18: -POD#13 -Upper endoscopy showed duodenal ulceration [...] D/C due to GI bleed. -Transfer to [facility] 11/30/18 POD # 14 EGD yesterday - duodenal ulceration with clot, no active bleeding and no intervention performed INR trending down, off coumadin and heparin Speech signed off yesterday - speech and cognition back to baseline Watch INR and [facility] upon discharge EF 55-60% per echo 11/16/18 DVT Prophylaxis: SCDs Diagnosis CAD (coronary artery disease), [place] coronary artery - Admitting, Medical. Thrombocytopenia - [...] - Discharge, Medical. Electronically signed by Interface, [facility] Conversion Front Desk Person Cerner at 12/08/2022 12:34 PM CDT documented in this encounter Plan of Treatment Not on file documented as of this encounter Visit Diagnoses Not on filedocumented in this encounter
--- OUTSIDE RECORDS SUMMARY | 2025-03-02 15:30 | XMS_ITS | Encounter Summary ---
Author Organization [employer] ([place], [place], [place], [place]) Address [address] [place] [address] Care Team Providers Care Medical Customer Service Representative Name Role Phone Unavailable Primary Care Provider Unavailabl e Encounter Details Date Type Department Care Team (Late st Contact Info) Description 11/22/2018 Transcribed Document [facility] [place] [address] [place] [address] ProviderErika MD [address] [place] [address] Social History Tobacco Use Types [...] at goal rate. Did have BM yesterday. INSTALLER INSPECTOR FINAL okayed pt for po diet this am- follow up after breakfast and pt had eating 50% of meal. Pt stated he would enjoy ensure as well. Spoke with RN about observing 1-2 more meals before removing corpak and speaking with MD as well. 11/18: Check on: Pt is on Osmolite 1.5 @ 50m/hr + 1 [id number] daily advancing toward goal of 60ml/hr + 1 Qydhrenvd40 daily. No INSTALLER INSPECTOR FINAL consult noted, discussed if any concern for [...] Support: Jevity 1.5 @ 60ml/hr + 1 [id number] daily, HT: 185cm (6'1) ADMIT WT: 79kg/174# Current Wt: 81.6kg (11/17), 82.4kg (11/18) , 84.3 kg (11/22) BMI: 23 IBW: 79kg/100% EST NEEDS: 4558-8160 kcal (25-30kcal/kg), 95g pro (1.2g/kg) DAVION GREEN [...] 11/22/2018 12:04 EDT Electronically signed by Parveen, [facility] Conversion Director Of Reimbursement Cerner at 12/08/2022 12:11 PM CDT documented in this encounter Plan of Treatment Not on file documented as of this encounter Visit Diagnoses Not on filedocumented in this encounter
--- OUTSIDE RECORDS SUMMARY | 2025-03-02 15:30 | XMS_ITS | Encounter Summary ---
Author Organization [employer] ([place], [place], [place], [place]) Address [address] [place] [address] Care Team Providers Care Enterprise Systems Architect Name Role Phone Unavailable Primary Care Provider Unavailabl e Encounter Details Date Type Department Care Team (Late st Contact Info) Description 11/23/2018 Transcribed Document [facility] [place] Family Medicine [address] [place] [address] ProviderErika MD [address] [place] [address] Social History Tobacco Use Types [...] unspecified 11/17/2018 00:00 Atherosclerotic heart disease of [place] coronary artery without angina pectoris 11/17/2018 00:00 Essential (primary) hypertension 11/17/2018 00:00 Hypothyroidism, unspecified 11/17/2018 00:00 Nonrheumatic aortic (valve) insufficiency 11/17/2018 00:00 Restless legs syndrome 11/17/2018 00:00 Thoracic aortic aneurysm, without rupture 11/17/2018 00:00 Thrombocytopenia, unspecified 11/16/2018 00:00 Atherosclerotic heart disease of [place] coronary artery without angina pectoris 11/16/2018 00:00 [...] AUDREY GRANDE OTR/Ginny - 11/30/2018 15:25 EDT U.[employer]. Revenue Officer Goals, OT Self Feeding LTG Grid Goal [...] Family present. MaxAx2 chair to bed transfer, FLAVOR TANK TENDER. RN assisting. Pt's L UE very weak. [...] AUDREY GRANDE OTR/Ginny - 11/30/2018 15:25 EDT documented in this encounter Plan of Treatment Not on file documented as of this encounter Visit Diagnoses Not on filedocumented in this encounter
--- OUTSIDE RECORDS SUMMARY | 2025-03-02 15:30 | XMS_ITS | Clinical Summary ---
Author Organization [facility] Address [address] [place] [address] Care Team Providers Care Analytical Strategist Name Role Phone Clifford Horner MD Primary Care Provider [phone] Allergies No known active allergies Medications dutasteride [...] r (1 - 1-dose 75+ series) 2014 [id number] Vaccine (3 - Moderna risk series) 02/11/2021 [...] complete this topic Insurance MEDICARE Care Teams Analytical Strategist Relationship Specialty Start Date End Date Clifford Horner MD [address] [facility] [address] [place] [address] PCP - General 07/14/24
--- OUTSIDE RECORDS SUMMARY | 2025-03-02 15:30 | XMS_ITS | Encounter Summary ---
Author Organization [employer] ([place], [place], [place], [place]) Address [address] [place] [address] Care Team Providers Care Manager Of Network Name Role Phone Unavailable Primary Care Provider Unavailabl e Encounter Details Date Type Department Care Team (Late st Contact Info) Description 11/30/2018 Transcribed Document [facility] [place] [address] [place] [address] ProviderErika MD [address] [place] [address] Social History Tobacco Use Types [...]
--- OUTSIDE RECORDS SUMMARY | 2025-03-02 15:30 | XMS_ITS | Encounter Summary ---
Author Organization [employer] ([place], [place], [place], [place]) Address [address] [place] [address] Care Team Providers Care Director Packaging Name Role Phone Unavailable Primary Care Provider Unavailabl e Encounter Details Date Type Department Care Team (Late st Contact Info) Description 11/18/2018 Transcribed Document [facility] [place] [address] [place] [address] ProviderErika MD [address] [place] [address] Social History Tobacco Use Types [...] : 11/17/2018 00:00 Atherosclerotic heart disease of [place] coronary artery without angina pectoris 11/17/2018 00:00 Essential (primary) hypertension 11/17/2018 00:00 Hypothyroidism, unspecified 11/17/2018 00:00 Nonrheumatic aortic (valve) insufficiency 11/17/2018 00:00 Restless legs syndrome 11/17/2018 00:00 Thoracic aortic aneurysm, without rupture 11/17/2018 00:00 Thrombocytopenia, unspecified 11/16/2018 00:00 Atherosclerotic heart disease of [place] coronary artery without angina pectoris 11/16/2018 00:00 [...] SENIA QUINTANA PTA - 11/23/2018 10:24 EDT Half-Way Goals Mobility/Bed Mobility LTG PT Grid Goal #1 Activity : Sit to stand Assist : Assist, minimal Date to Meet : 12/02/2018 EDT Goal Status : Intial Goal SENIA QUINTANA PTA - 11/23/2018 10:24 EDT Transfer LTG [...] SENIA QUINTANA PTA - 11/23/2018 10:24 EDT [place] PT Charges PT Therap. Exercise 15 min : 1 PT Ther Activities Ea 15 Min : 1 SENIA QUINTANA PTA - 11/23/2018 10:24 EDT Electronically signed by Christina Saini Conversion Electrical Manufacturing Technician Cerner at 12/12/2022 8:26 AM CDT documented in this encounter Plan of Treatment Not on file documented as of this encounter Visit Diagnoses Not on filedocumented in this encounter
--- OUTSIDE RECORDS SUMMARY | 2025-03-02 15:30 | XMS_ITS | Encounter Summary ---
Author Organization [employer] ([place], [place], [place], [place]) Address [address] [place] [address] Care Team Providers Care Radiologic Technologist Name Role Phone Unavailable Primary Care Provider Unavailabl e Encounter Details Date Type Department Care Team (Late st Contact Info) Description 11/25/2018 Transcribed Document [facility] [place] [place] Medicine [address] [place] [address] ProviderErika MD [address] [place] [address] Social History Tobacco Use Types [...] Time of Assessment : 11/25/2018 9:00 EDT [facility] Clinician Administering Scale : Elissa Rodarte RN [...]
--- OUTSIDE RECORDS SUMMARY | 2025-03-02 15:30 | XMS_ITS | Encounter Summary ---
Author Organization [employer] ([place], [place], [place], [place]) Address [address] [place] [address] Care Team Providers Care Data Entry Representative Name Role Phone Unavailable Primary Care Provider Unavailabl e Encounter Details Date Type Department Care Team (Late st Contact Info) Description 11/22/2018 Transcribed Document [facility] [place] [address] [place] [address] ProviderErika MD [address] [place] [address] Social History Tobacco Use [...] EDT Electronically signed by Christina Saini Conversion [employer] Assistant Principal Cerner at 12/08/2022 12:18 PM CDT documented in this encounter Plan of Treatment Not on file documented as of this encounter Visit Diagnoses Not on filedocumented in this encounter
--- OUTSIDE RECORDS SUMMARY | 2025-03-02 15:30 | XMS_ITS | Encounter Summary ---
Author Organization [employer] ([place], [place], [place], [place]) Address [address] [place] [address] Care Team Providers Care Buff Wheel Fabricator Name Role Phone Unavailable Primary Care Provider Unavailabl e Encounter Details Date Type Department Care Team (Late st Contact Info) Description 11/22/2018 Transcribed Document [facility] [place] [place] [address] [place] [address] ProviderErika MD [address] [place], [place] [id number] Social History Tobacco Use Types Packs/Day Years [...] of Systems Respiratory - wearing 02 by [facility] - has NG tube. Objective Vitals [...] Tab, Oral, At Bedtime saliva substitutes, 1 [place], Buccal, Q2H, PRN Senokot, 17.2 mg= 2 [...]
--- OUTSIDE RECORDS SUMMARY | 2025-03-02 15:30 | XMS_ITS | Encounter Summary ---
Author Organization [employer] ([place], [place], [place], [place]) Address [address] [place] [address] Care Team Providers Care Bandage Maker Name Role Phone Unavailable Primary Care Provider Unavailabl e Encounter Details Date Type Department Care Team (Late st Contact Info) Description 11/18/2018 Transcribed Document [facility] Family Medicine [address] [place] [address] ProviderErika MD [address] [place] [address] Social History Tobacco Use Types [...]
--- OUTSIDE RECORDS SUMMARY | 2025-03-02 15:30 | XMS_ITS | Encounter Summary ---
Author Organization [employer] ([place], [place], [place], [place]) Address [address] [place] [address] Care Team Providers Care Passenger Relations Representative Name Role Phone Unavailable Primary Care Provider Unavailabl e Encounter Details Date Type Department Care Team (Late st Contact Info) Description 11/18/2018 Transcribed Document [facility] [place] Family Medicine [address] [place] [address] ProviderErika MD [address] [place] [address] Social History Tobacco Use Types [...] on Osmolite 1.5 @ 50m/hr + 1 [id number] daily advancing toward goal of 60ml/hr + 1 [id number] daily. No CAREER BASED INTERVENTION COORDINATOR consult noted, discussed if any concern for [...] midline incision; chest tube 370ml GI: LBM BRAKE ASSEMBLER (admit 11/16), hypoactive BS, +NGT Nutrition Support: Osmolite 1.5 @ 60ml/hr + 1 [id number] daily, water flush 10ml q1hr HT: 185cm (6'1) ADMIT WT: 79kg/174# Current Wt: 81.6kg (11/17), 82.4kg (11/18) BMI: 23 IBW: 79kg/100% EST NEEDS: 0189-9599 kcal (25-30kcal/kg), 95g pro (1.2g/kg) Bev Olvera [...] TF: Osmolite 1.5 @ 60ml/hr + 1 daily (provides 2040 kcal, 98g pro). FW per MD. goal: provide nutrition, meet est needs 2. As medically able, recommend swallow eval if appropriate; rec (cardiac) w/consistencies per CAREER BASED INTERVENTION COORDINATOR. RD will monitor need for supplement. goal: [...]
--- OUTSIDE RECORDS SUMMARY | 2025-03-02 15:30 | XMS_ITS | Encounter Summary ---
Author Organization [employer] ([place], [place], [place], [place]) Address [address] [place] [address] Care Team Providers Care Student Counsellor Name Role Phone Unavailable Primary Care Provider Unavailabl e Encounter Details Date Type Department Care Team (Late st Contact Info) Description 11/30/2018 Transcribed Document [facility] [place] Family Medicine [address] [place] [address] ProviderErika MD [address] [place] [address] Social History Tobacco Use Types [...] 3E room 330. Discussed w/ Carmen from [facility] who is still following pt. She has submitted pt info to for approval. Pt had EGD 11/29 which revealed duodenal ulcer w/ clot but no bleeding, no intervention needed, Off heparin gtt, watching pt's INR and H & H. Speech signed off today, pt is cleared for thins. Met w/ pt and family and informed them of [facility] situation. Also discussed outpt Cardiac Rehab. They prefer to go to [facility]. Phoned them and left msg, [...] (not seen on 11/25/18) followed up with [facility] today regarding possible admission - plan is [...] (not seen on 11/25/18) followed up with [facility] today regarding possible admission - plan is to submit for approval today after being seen by therapy, for their MD approval. Once accepting MD in place, bed in place and patient is medically stable will be able to transfer due to patient not requiring a insurance prior auth. CM will continue to follow. ODALYS FAULKNER Rn-Farmworker [employer] - 11/24/18 13:22:19 11/24/18 Andra from [facility] called to let me know they started a precert on this pt. CF ODALYS FAULKNER Rn-Farmworker [employer] - 11/22/18 13:56:32 11/22/18 Pt has had a cva. Spoke to his Connie and son Sumeet at the bedside. Pt is lfacid on the left side. Discussed the need for STR and they decided on [facility]. Sent pt info via [employer] to [facility]. CF Documentation Status Complete : Yes SUZANNA HAINES Welding Machine Operator - 11/30/2018 15:24 EDT Discharge Planning Details Persons Assisting Patient at Home : Spouse SUZANNA HAINES Social Worker - 11/30/2018 15:24 EDT Electronically signed by [facility] Conversion Rag Boiler Felipe at 12/08/2022 12:27 PM CDT documented in this encounter Plan of Treatment Not on file documented as of this encounter Visit Diagnoses Not on filedocumented in this encounter
--- OUTSIDE RECORDS SUMMARY | 2025-03-02 15:30 | XMS_ITS | Encounter Summary ---
Author Organization [employer] ([place], [place], [place], [place]) Address [address] [place] [address] Care Team Providers Care Group Rooms Coordinator Name Role Phone Unavailable Primary Care Provider Unavailabl e Encounter Details Date Type Department Care Team (Late st Contact Info) Description 11/29/2018 Transcribed Document [facility] [place] Family Medicine [address] [place] [address] ProviderErika MD [address] [place] [address] Social History Tobacco Use Types Packs/Day Years Used Date Smoking Tobacco: Never Assessed Sex and Gender Information Value Date Recorded Sex Assigned at Not on file Legal Sex Male 5:03 PM CDT Gender Identity Not on file Sexual Orientation Not on file documented as of this encounter Miscellaneous Notes * Cerner Conversion Note - Historical ProviderMD - 11/29/2018 11:15 AM CDT CRM DYNAMICS DEVELOPER Attempt to Treat Entered On: 11/29/2018 11:15 [...]
--- OUTSIDE RECORDS SUMMARY | 2025-03-02 15:30 | XMS_ITS | Encounter Summary ---
Author Organization [employer] ([place], [place], [place], [place]) Address [address] [place] [address] Care Team Providers Care Field Sales Executive Name Role Phone Unavailable Primary Care Provider Unavailabl e Encounter Details Date Type Department Care Team (Late st Contact Info) Description 11/30/2018 Transcribed Document [facility] [place] [address] [place] [address] ProviderErika MD [address] [place] [address] Social History Tobacco Use Types [...]
--- OUTSIDE RECORDS SUMMARY | 2025-03-02 15:30 | XMS_ITS | Encounter Summary ---
Author Organization [employer] ([place], [place], [place], [place]) Address [address] [place] [address] Care Team Providers Care Fleet Administrator Name Role Phone Unavailable Primary Care Provider Unavailabl e Encounter Details Date Type Department Care Team (Late st Contact Info) Description 11/30/2018 Transcribed Document [facility] [place] Family Medicine [address] [place] [address] ProviderErika MD [address] [place] [address] Social History Tobacco Use Types [...]
--- OUTSIDE RECORDS SUMMARY | 2025-03-02 15:30 | XMS_ITS | Encounter Summary ---
Author Organization [employer] ([place], [place], [place], [place]) Address [address] [place] [address] Care Team Providers Care Final Inspector Balance Wheel Name Role Phone Unavailable Primary Care Provider Unavailabl e Encounter Details Date Type Department Care Team (Late st Contact Info) Description 11/29/2018 Transcribed Document [facility] [place] [address] [place] [address] Provider, MD Erika [address] [place] [address] Social History Tobacco Use Types Packs/Day Years Used Date Smoking Tobacco: Never Assessed Sex and Gender Information Value Date Recorded Sex Assigned at Not on file Legal Sex Male 5:03 PM CDT Gender Identity Not on file Sexual Orientation Not on file documented as of this encounter Miscellaneous Notes * Cerner Conversion Note - Erika ProviderMD - 11/29/2018 2:30 PM CDT [facility] Onel PreOp Summary Primary Physician: RIGOBERTO YU MD Finalized Date/Time: 11/29/18 14:12:35 Pt. Name: DOTTIE VILLASENOR Ladan /Sex: 1940 Male Med Rec #: [id number] Physician: JULIO CESAR CARVALHO MD-[facility] Financial #: [id number] Pt. Type: I Room/Bed: 330/1 Admit/Disch: 11/16/18 06:45:00 - Institution: [facility] Onel PreOp Case Times Entry 1 In Preop 11/29/18 13:59:00 Ready for Holding n/a Room Patient Ready for 11/29/18 14:12:00 Surgery Patient Out of Preop 11/29/18 14:12:00 Patient Out of n/a Holding Room Last Modified By: Gem Osborne Rn 11/29/18 14:12:33 [facility] Endo PreOp Case Times Audit 11/29/18 14:12:33 Door Repairer Bus: ASHLEYSTAPLETON Modifier: ASHLEYSTAPLETON <+> 1 Patient Out of Preop <+> 1 Patient Ready for Surgery Finalized By: Gem Osborne Rn Document Signatures Signed By: Gem Osborne Rn 11/29/18 14:12 documented in this encounter Plan of Treatment Not on file documented as of this encounter Visit Diagnoses Not on filedocumented in this encounter
--- OUTSIDE RECORDS SUMMARY | 2025-03-02 15:30 | XMS_ITS | Encounter Summary ---
Author Organization [employer] ([place], [place], [place], [place]) Address [address] [place] [address] Care Team Providers Care Garage Door Technician Name Role Phone Unavailable Primary Care Provider Unavailabl e Encounter Details Date Type Department Care Team (Late st Contact Info) Description 11/22/2018 Transcribed Document [facility] [place] [address] [place] [address] ProviderErika MD [address] [place], [place] [id number] Social History Tobacco Use Types Packs/Day Years [...] 1940 Associated Diagnoses: CAD (coronary artery disease), [place] coronary artery; Thrombocytopenia; Coronary artery disease; HTN [...] S1, S2, No edema. Integumentary: Warm, Dry, [place], incision is C/D/I. Neurologic: Alert, left sided [...] Prophylaxis: SCDs Diagnosis CAD (coronary artery disease), [place] coronary artery - Admitting, Medical. Thrombocytopenia - Working, Medical. Coronary artery disease - Discharge, Medical. HTN (hypertension) - Pre-Op Diagnosis, Medical. Hypothyroidism - Pre-Op Diagnosis, Medical. Aortic insufficiency - Admitting, Medical. Aortic insufficiency - Discharge, Medical. RLS (restless legs syndrome) - Pre-Op Diagnosis, Medical. Thoracic ascending aortic aneurysm - Admitting, Medical. Thoracic ascending aortic aneurysm - Discharge, Medical. Electronically signed by Parveen, [facility] Conversion Head Of Sales Cerner at 12/08/2022 12:25 PM CDT documented in this encounter Plan of Treatment Not on file documented as of this encounter Visit Diagnoses Not on filedocumented in this encounter
--- OUTSIDE RECORDS SUMMARY | 2025-03-02 15:30 | XMS_ITS | Encounter Summary ---
Author Organization [employer] ([place], [place], [place], [place]) Address [address] [place] [address] Care Team Providers Care Surgical Garment Assembly Supervisor Name Role Phone Unavailable Primary Care Provider Unavailabl e Encounter Details Date Type Department Care Team (Late st Contact Info) Description 11/29/2018 Transcribed Document [facility] [place] [address] [place] [address] ProviderErika MD [address] [place] [address] Social History Tobacco Use Types [...] CHIQUI STATON RN - 11/29/2018 17:38 EDT documented in this encounter Plan of Treatment Not on file documented as of this encounter Visit Diagnoses Not on filedocumented in this encounter
--- OUTSIDE RECORDS SUMMARY | 2025-03-02 15:30 | XMS_ITS | Encounter Summary ---
Author Organization [employer] ([place], [place], [place], [place]) Address [address] [place] [address] Care Team Providers Care Production Planner Name Role Phone Unavailable Primary Care Provider Unavailabl e Encounter Details Date Type Department Care Team (Late st Contact Info) Description 11/18/2018 Transcribed Document [facility] [place] Family Medicine [address] [place] [address] ProviderErika MD [address] [place] [address] Social History Tobacco Use Types [...] Initial Visit : Yes Referred by : [place] Support Worker initiated Referral Reason Comment : Post-op visit Ministry Provided to : Patient, Family/Significant other Catholic Preference : Cheondo[employer] MARCOS GASCA P - [...] other supported, Relationship strengths identified Spiritual and Catholic : Prayer shared, Spiritual/Catholic support provided MARCOS GASCA P - 11/18/2018 10:51 EDT documented in this encounter Plan of Treatment Not on file documented as of this encounter Visit Diagnoses Not on filedocumented in this encounter
--- OUTSIDE RECORDS SUMMARY | 2025-03-02 15:30 | XMS_ITS | Encounter Summary ---
Author Organization [employer] ([place], [place], [place], [place]) Address [address] [place] [address] Care Team Providers Care Caterpillar Mechanic Name Role Phone Unavailable Primary Care Provider Unavailabl e Encounter Details Date Type Department Care Team (Late st Contact Info) Description 11/22/[address] [facility] [place] [address] [place] [address] ProviderErika MD [address] [place] [address] Social History Tobacco Use Types [...] unspecified 11/17/2018 00:00 Atherosclerotic heart disease of [place] coronary artery without angina pectoris 11/17/2018 00:00 Essential (primary) hypertension 11/17/2018 00:00 Hypothyroidism, unspecified 11/17/2018 00:00 Nonrheumatic aortic (valve) insufficiency 11/17/2018 00:00 Restless legs syndrome 11/17/2018 00:00 Thoracic aortic aneurysm, without rupture 11/17/2018 00:00 Thrombocytopenia, unspecified 11/16/2018 00:00 Atherosclerotic heart disease of [place] coronary artery without angina pectoris 11/16/2018 00:00 [...] TARI MOORE OTR/L 11/23/2018 15:10 EDT Hand Jewelry Sales Coordinator Test : trace with digits TARI MOORE [...] TARI MOORE OTR/Ginny - 11/23/2018 15:10 EDT Senior Care Goals, OT Self Feeding LTG Grid Goal #1 Activity : Self feeding Assist : Independent, modified Date to Meet : 12/07/2018 EDT Goal Status : Initial TERESABRYANTARIMARY JANE ANGELES/Ginny - 11/23/2018 15:10 EDT Grooming [...] TARI MOORE OTR/L - 11/23/2018 15:10 EDT Electronically signed by Michele Saini Conversion Supervisor Electron Tube Processing Cerner at 12/08/2022 12:19 PM CDT documented in this encounter Plan of Treatment Not on file documented as of this encounter Visit Diagnoses Not on filedocumented in this encounter
--- OUTSIDE RECORDS SUMMARY | 2025-03-02 15:30 | XMS_ITS | Encounter Summary ---
Author Organization [employer] ([place], [place], [place], [place]) Address [address] [place] [address] Care Team Providers Care Chemistry Physics Teacher Name Role Phone Unavailable Primary Care Provider Unavailabl e Encounter Details Date Type Department Care Team (Late st Contact Info) Description 11/17/2018 Transcribed Document [facility] [place] Family Medicine [address] [place] [address] ProviderErika MD [address] [place] [address] Social History Tobacco Use Types [...]
--- OUTSIDE RECORDS SUMMARY | 2025-03-02 15:30 | XMS_ITS | Encounter Summary ---
Author Organization [employer] ([place], [place], [place], [place]) Address [address] [place] [address] Care Team Providers Care Director Of Religious Life Name Role Phone Unavailable Primary Care Provider Unavailabl e Encounter Details Date Type Department Care Team (Late st Contact Info) Description 11/25/2018 Transcribed Document [facility] [place] [facility] [place] [address] [place] [address] ProviderErika MD [address] [place] [address] Social History Tobacco Use [...]
--- OUTSIDE RECORDS SUMMARY | 2025-03-02 15:30 | XMS_ITS | Encounter Summary ---
Author Organization [employer] ([place], [place], [place], [place]) Address [address] [place] [address] Care Team Providers Care Missile Inspector Preflight Name Role Phone Unavailable Primary Care Provider Unavailjuliana e Encounter Details Date Type Department Care Team (Late st Contact Info) Description 11/17/2018 Transcribed Document [facility] [place] Family Medicine [address] [place] [address] ProviderErika MD [address] [place] [address] Social History Tobacco Use Types [...] On: 11/17/2018 11:49 EDT by Lizabeth Marti, Hydroelectric Mechanic Nutrition Assessment Nutrition Assessment Reason : Consult [...] wnls + sternum midline incision GI: LBM VESSEL SLAGMAN, hypoactive BS, +NGT, +chest tube (1030 ml) HT: 185cm (6'1) ADMIT WT: 79kg/174# BMI: 23 IBW: 79kg/100% NFPE: insignificant EST NEEDS: 9859-9267 kcal (25-30kcal/kg), 95g pro (1.2g/kg) Lizabeth Marti Dietician - 11/17/2018 11:44 EDT Teaching/Learning Assessment Lizabeth Marti Dietician - 11/17/2018 11:52 EDT Lizabeth Marti [...] recommend initate po diet (cardiac) w/consitencies per PIG LEAD MELTER HELPER. RD will monitor need for supplement. goal: establish po intake 3. obtain wt 2x weekly goal: no significant unintended changes high risk Nutrition Care Level : High Lizabeth Marti Dietician - 11/17/2018 11:44 EDT documented in this encounter Plan of Treatment Not on file documented as of this encounter Visit Diagnoses Not on filedocumented in this encounter
--- OUTSIDE RECORDS SUMMARY | 2025-03-02 15:30 | XMS_ITS | Encounter Summary ---
Author Organization [employer] ([place], [place], [place], [place]) Address [address] [place] [address] Care Team Providers Care Operating Cost Clerk Name Role Phone Unavailable Primary Care Provider Unavailabl e Encounter Details Date Type Department Care Team (Late st Contact Info) Description 11/22/2018 Transcribed Document [facility] [place] Family Medicine [address] [place] [address] ProviderErika MD [address] [place] [address] Social History Tobacco Use Types [...] Source : Measured Height Entry Format : [place] Height, Feet : 6 ft Height, Inches [...]
--- OUTSIDE RECORDS SUMMARY | 2025-03-02 15:30 | XMS_ITS | Encounter Summary ---
Author Organization [employer] ([place], [place], [place], [place]) Address [address] [place] [address] Care Team Providers Care Housing Specialist Name Role Phone Unavailable Primary Care Provider Unavailabl e Encounter Details Date Type Department Care Team (Late st Contact Info) Description 11/29/2018 Transcribed Document [facility] [place] [address] [place] [address] ProviderErika MD [address] [place] [address] Social History Tobacco Use Types Packs/Day Years Used Date Smoking Tobacco: Never Assessed Sex and Gender Information Value Date Recorded Sex Assigned at Not on file Legal Sex Male 5:03 PM CDT Gender Identity Not on file Sexual Orientation Not on file documented as of this encounter Miscellaneous Notes * [employer] Conversion Note - Historical ProviderMD - 11/29/2018 2:00 AM CDT Weapons Officer Details Entered On: 11/29/2018 1:39 EDT Performed [...]
--- OUTSIDE RECORDS SUMMARY | 2025-03-02 15:30 | XMS_ITS | Encounter Summary ---
Author Organization [employer] ([place], [place], [place], [place]) Address [address] [place] [address] Care Team Providers Care Deputy General Counsel Name Role Phone Unavailable Primary Care Provider Unavailabl e Encounter Details Date Type Department Care Team (Late st Contact Info) Description 11/22/2018 Transcribed Document [facility] [place] [address] [place] [address] ProviderErika MD [address] [place] [address] Social History Tobacco Use Types Packs/Day Years Used Date Smoking Tobacco: Never Assessed Sex and Gender Information Value Date Recorded Sex Assigned at Not on file Legal Sex Male 5:03 PM CDT Gender Identity Not on file Sexual Orientation Not on file documented as of this encounter Miscellaneous Notes * [employer]ner Conversion Note - Historical ProviderMD - 11/22/2018 2:00 AM CDT Cottonseed Meat Presser Details Entered On: 11/22/2018 6:09 EDT Performed [...]
--- OUTSIDE RECORDS SUMMARY | 2025-03-02 15:30 | XMS_ITS | Encounter Summary ---
Author Organization [employer] ([place], [place], [place], [place]) Address [address] [place] [address] Care Team Providers Care Lobby Concierge Name Role Phone Unavailable Primary Care Provider Unavailabl e Encounter Details Date Type Department Care Team (Late st Contact Info) Description 11/18/2018 Transcribed Document [facility] [place] [address] [place] [address] ProviderErika MD [address] [place] [address] Social History Tobacco Use Types [...]
--- OUTSIDE RECORDS SUMMARY | 2025-03-02 15:30 | XMS_ITS | Encounter Summary ---
Author Organization [employer] ([place], [place], [place], [place]) Address [address] [place] [address] Care Team Providers Care Engraver Pantograph Name Role Phone Unavailable Primary Care Provider Unavailabl e Encounter Details Date Type Department Care Team (Late st Contact Info) Description 11/25/2018 Transcribed Document [facility] [place] [address] [place] [address] ProviderErika MD [address] [place] [address] Social History Tobacco Use Types [...]
--- OUTSIDE RECORDS SUMMARY | 2025-03-02 15:30 | XMS_ITS | Encounter Summary ---
Author Organization [employer] ([place], [place], [place], [place]) Address [address] [place] [address] Care Team Providers Care Seismic Computer Name Role Phone Unavailable Primary Care Provider Unavailjuliana e Encounter Details Date Type Department Care Team (Late st Contact Info) Description 11/29/2018 Transcribed Document [facility] [place] Family Medicine [address] [place] [address] ProviderErika MD [address] [place] [address] Social History Tobacco Use Types [...] unspecified 11/17/2018 00:00 Atherosclerotic heart disease of [place] coronary artery without angina pectoris 11/17/2018 00:00 Essential (primary) hypertension 11/17/2018 00:00 Hypothyroidism, unspecified 11/17/2018 00:00 Nonrheumatic aortic (valve) insufficiency 11/17/2018 00:00 Restless legs syndrome 11/17/2018 00:00 Thoracic aortic aneurysm, without rupture 11/17/2018 00:00 Thrombocytopenia, unspecified 11/16/2018 00:00 Atherosclerotic heart disease of [place] coronary artery without angina pectoris 11/16/2018 00:00 Nonrheumatic aortic (valve) insufficiency 11/16/2018 00:00 Thoracic aortic aneurysm, without rupture Admission Date : 11/16/2018 06:45 Co-treated by, OT : diversional therapist's assistant (CERAMIC COATER MACHINE) Personal Devices : Personal Devices No Devices [...] DAKOTA VELAZQUEZ OTR/L - 11/29/2018 13:08 EDT Mcfp Goals, OT Self Feeding LTG Grid Goal #1 Activity : Self feeding Assist : Independent, modified Date to Meet : 12/07/2018 EDT Goal Status : Progressing, continue CAROLINEDAKOTA Luana OTR/L - 11/29/2018 13:08 EDT Grooming LTG Grid Goal #1 Activity : Grooming Assist : Assist, minimal Date to Meet : 12/07/2018 EDT Goal Status : Initial goal CRAOLINE TRISTANJAYCOB Craft OTR/L - 11/29/2018 13:08 EDT [...]
--- OUTSIDE RECORDS SUMMARY | 2025-03-02 15:30 | XMS_ITS | Encounter Summary ---
Author Organization [employer] ([place], [place], [place], [place]) Address [address] [place] [address] Care Team Providers Care Branch Maker Name Role Phone Unavailable Primary Care Provider Unavailabl e Encounter Details Date Type Department Care Team (Late st Contact Info) Description 11/25/2018 Transcribed Document [facility] [place] Family Medicine [address] [place] [address] ProviderErika MD [address] [place] [address] Social History Tobacco Use Types [...] 11/25/2018 12:20 EDT by THERESA CAZARES [facility] Clinical Interventions Heparin Per Weight-Based Protocol : Yes THERESA CAZARES [facility] - 11/25/2018 12:20 EDT Heparin Per Weight-Based [...] THERESA CAZARES RPh - 11/25/2018 12:20 EDT documented in this encounter Plan of Treatment Not on file documented as of this encounter Visit Diagnoses Not on filedocumented in this encounter
--- OUTSIDE RECORDS SUMMARY | 2025-03-02 15:30 | XMS_ITS | Encounter Summary ---
Author Organization [employer] ([place], [place], [place], [place]) Address [address] [place] [address] Care Team Providers Care Dishwasher Preparer Name Role Phone Unavailable Primary Care Provider Unavailabl e Encounter Details Date Type Department Care Team (Late st Contact Info) Description 11/18/2018 Transcribed Document [facility] [place] [address] [place] [address] ProviderErika MD [address] [place], [place] [id number] Social History Tobacco Use Types Packs/Day Years [...] 1940 Associated Diagnoses: CAD (coronary artery disease), [place] coronary artery; Thrombocytopenia; Coronary artery disease; HTN [...] S1, S2, No edema. Integumentary: Warm, Dry, [place], incision is C/D/I. Neurologic: Alert, he did [...] Prophylaxis: SCDs Diagnosis CAD (coronary artery disease), in[place] coronary artery - Admitting, Medical. Thrombocytopenia - Working, Medical. Coronary artery disease - Discharge, Medical. HTN (hypertension) - Pre-Op Diagnosis, Medical. Hypothyroidism - Pre-Op Diagnosis, Medical. Aortic insufficiency - Admitting, Medical. Aortic insufficiency - Discharge, Medical. RLS (restless legs syndrome) - Pre-Op Diagnosis, Medical. Thoracic ascending aortic aneurysm - Admitting, Medical. Thoracic ascending aortic aneurysm - Discharge, Medical. Electronically signed by Parveen, [facility] Conversion Dust Collector Treater Cerner at 12/08/2022 12:19 PM CDT documented in this encounter Plan of Treatment Not on file documented as of this encounter Visit Diagnoses Not on filedocumented in this encounter
--- OUTSIDE RECORDS SUMMARY | 2025-03-02 15:30 | XMS_ITS | Encounter Summary ---
Author Organization [employer] ([place], [place], [place], [place]) Address [address] [place] [address] Care Team Providers Care Certified Professional Ergonomist Name Role Phone Unavailable Primary Care Provider Unavailabl e Encounter Details Date Type Department Care Team (Late st Contact Info) Description 11/23/2018 Transcribed Document [facility] [place] Family Medicine [address] [place] [address] ProviderErika MD [address] [place] [address] Social History Tobacco Use Types [...] Time of Assessment : 11/23/2018 20:00 EDT [facility] Clinician Administering Scale : SHELDON MUELLER RN [...] in one limb NIH Sensory (8) : [id number]-[id number] sensory loss NIH Best Language (9) : No aphasia NIH Dysarthria (10) : Normal Extinction and Inattention (11) : No abnormality NIH Scale Score : 9 SHELDON MUELLER RN - 11/23/2018 20:14 EDT documented in this encounter Plan of Treatment Not on file documented as of this encounter Visit Diagnoses Not on filedocumented in this encounter
--- OUTSIDE RECORDS SUMMARY | 2025-03-02 15:30 | XMS_ITS | Encounter Summary ---
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 Respiratory Assessment Comment : Nasal cannula MAMTA SOLO, ERIC - 11/23/2018 14:12 EDT Visit Type, SMALL BUSINESS SALES REPRESENTATIVE : Initial evaluation Patient Orders : Speech Language Pathology Evaluation and Treatment -111 Start: 11/22/18 11:18:00 EDT, Routine, For Speech Language Cognitive Eval and Treat - JAY JAY CRESPO MD-DIANE SMALL BUSINESS SALES REPRESENTATIVE Fxnl Limitation Documentation - Start: 11/20/18 9:37:47 EDT, Continuous Order -111 SYSTEM, SYSTEM Speech Language Pathology Additional Tx - Start: 11/20/18 9:36:00 EDT, For Dysphagia, Continuous Order -111 Admission Date : Admission Date/Time: 11/16/18 06:45:00 Medical Chart Reviewed, SMALL BUSINESS SALES REPRESENTATIVE : Yes Personal Devices : Personal Devices No Devices Recorded Assistive Devices : Assistive Devices No Devices Recorded Active Diagnoses : 11/23/2018 00:00 Cerebral infarction, unspecified 11/17/2018 00:00 Atherosclerotic heart disease of [place] coronary artery without angina pectoris 11/17/2018 00:00 Essential (primary) hypertension 11/17/2018 00:00 Hypothyroidism, unspecified 11/17/2018 00:00 Nonrheumatic aortic (valve) insufficiency 11/17/2018 00:00 Restless legs syndrome 11/17/2018 00:00 Thoracic aortic aneurysm, without rupture 11/17/2018 00:00 Thrombocytopenia, unspecified 11/16/2018 00:00 Atherosclerotic heart disease of [place] coronary artery without angina pectoris 11/16/2018 00:00 [...] Gag Reflex Intact : Yes Intubation Comment, SMALL BUSINESS SALES REPRESENTATIVE : 11/16-11/17 Vital Signs RTF : Vitals [...] 13:41 EDT General Status Patient Received Status, SMALL BUSINESS SALES REPRESENTATIVE : Supine in bed Patient Left Status, SMALL BUSINESS SALES REPRESENTATIVE : Supine in bed MAMTA SOLO SLP [...] Oral Mechanism for Daily Living : Intact SMALL BUSINESS SALES REPRESENTATIVE Cough : Weak MAMTA SOLO SLP - [...] 14:12 EDT Evaluation Methods Types of Evaluation, SMALL BUSINESS SALES REPRESENTATIVE : Informal MAMTA SOLO SLP - 11/23/2018 14:12 EDT [facility] Impressions Impressions, Speech/Lang/Cog : Other: Mixed expressive/receptive communication impairment [facility] Overall Impressions : Communication evaluation completed given [...] - 11/23/2018 14:12 EDT Therapy Indication Assessment SMALL BUSINESS SALES REPRESENTATIVE Indicated : Yes SMALL BUSINESS SALES REPRESENTATIVE Interdisciplinary Consultation Needs : No SMALL BUSINESS SALES REPRESENTATIVE Problem List : Impaired, Spoken Language Comprehension, Impaired, Spoken Language Expression MAMTA SOLO SLP - 11/23/2018 14:12 EDT LTG Lang/Comm/Cog LTG SMALL BUSINESS SALES REPRESENTATIVE Collector Of Aquarium Specimens Goal 1 Collector Of Aquarium Specimens Goal 2 Goals : Improved spoken language [...] MAMTA SOLO SLP - 11/23/2018 14:12 EDT SMALL BUSINESS SALES REPRESENTATIVE Education Assessment Grid 1 Evaluation Results : Verbalizes understanding MMATA SOLO SLP - 11/23/2018 14:12 EDT SMALL BUSINESS SALES REPRESENTATIVE Education Assessment Grid 2 Treatment Plan : Verbalizes understanding MAMTA SOLO SLP - 11/23/2018 14:[address] [facility] Evaluation of Speech Production & Language : 1 MAMTA SOLO SLP - 11/23/2018 14:12 EDT Anticipated Discharge Needs, SMALL BUSINESS SALES REPRESENTATIVE Anticipated Discharge to OT : Rehab, high intensity Recommend Continued Therapy at Discharge : Yes MAMTA SOLO SLP - 11/23/2018 14:12 EDT documented in this encounter Plan of Treatment Not on file documented as of this encounter Visit Diagnoses Not on filedocumented in this encounter
--- OUTSIDE RECORDS SUMMARY | 2025-03-02 15:30 | XMS_ITS | Encounter Summary ---
Author Organization [employer] ([place], [place], [place], [place]) Address [address] [place] [address] Care Team Providers Care Cattle Driver Name Role Phone Unavailable Primary Care Provider Unavailabl e Encounter Details Date Type Department Care Team (Late st Contact Info) Description 11/25/2018 Transcribed Document [facility] [place] [address] [place] [address] ProviderErika MD [address] [place] [address] Social History Tobacco Use Types [...] Tab, Oral, At Bedtime saliva substitutes, 1 [place], Buccal, Q2H, PRN Senokot, 17.2 mg= 2 Tab, Oral, BID warfarin, 5 mg= 1 Tab, Oral, Daily Zofran, 4 mg= 2 mL, IV Push, Q4H, PRN Electronically signed by Parveen, [facility] Conversion Assembler Insulator Cerner at 12/08/2022 12:38 PM CDT documented in this encounter Plan of Treatment Not on file documented as of this encounter Visit Diagnoses Not on filedocumented in this encounter
--- OUTSIDE RECORDS SUMMARY | 2025-03-02 15:30 | XMS_ITS | Encounter Summary ---
Author Organization [employer] ([place], [place], [place], [place]) Address [address] [place] [address] Care Team Providers Care Ice Cream Vendor Name Role Phone Unavailable Primary Care Provider Unavailabl e Encounter Details Date Type Department Care Team (Late st Contact Info) Description 11/21/2018 Transcribed Document [facility] [place] Medicine [address] [place] [address] ProviderErika MD [address] [place] [address] Social History Tobacco Use Types Packs/Day Years Used Date Smoking Tobacco: Never Assessed Sex and Gender Information Value Date Recorded Sex Assigned at Not on file Legal Sex Male 5:03 PM CDT Gender Identity Not on file Sexual Orientation Not on file documented as of this encounter Miscellaneous Notes * Cerner Conversion Note - Historical ProviderMD - 11/21/2018 2:00 AM CDT Traffic Supervisor Details Entered On: 11/21/2018 1:40 EDT Performed [...] EDT Electronically signed by Christina Saini Conversion Well Service Pump Equipment Operator Felipe at 12/08/2022 12:39 PM CDT documented in this encounter Plan of Treatment Not on file documented as of this encounter Visit Diagnoses Not on filedocumented in this encounter
--- OUTSIDE RECORDS SUMMARY | 2025-03-02 15:30 | XMS_ITS | Encounter Summary ---
Author Organization [employer] ([place], [place], [place], [place]) Address [address] [place] [address] Care Team Providers Care Crib Attendant Name Role Phone Unavailable Primary Care Provider Unavailabl e Encounter Details Date Type Department Care Team (Late st Contact Info) Description 11/21/2018 Transcribed Document [facility] [place] [address] [place] [address] ProviderErika MD [address] [place] [address] Social History Tobacco Use Types [...] MRI to confirm. -continue asa, statin -Continue PT/OT/HARVEST MANAGER -control blood pressure, aim for whatever is [...] Tab, Oral, At Bedtime saliva substitutes, 1 [place], Buccal, Q2H, PRN Senokot, 17.2 mg= 2 [...] and no significant gradient across the valve. Electronically signed by Christina Saini Conversion Interlocking Pavement Installer Cerner at 12/08/2022 12:30 PM CDT documented in this encounter Plan of Treatment Not on file documented as of this encounter Visit Diagnoses Not on filedocumented in this encounter
--- OUTSIDE RECORDS SUMMARY | 2025-03-02 15:30 | XMS_ITS | Encounter Summary ---
Author Organization [employer] ([place], [place], [place], [place]) Address [address] [place] [address] Care Team Providers Care Senior Clinical Sas Programmer Name Role Phone Unavailable Primary Care Provider Unavailabl e Encounter Details Date Type Department Care Team (Late st Contact Info) Description 11/22/2018 Transcribed Document [facility] [place] [address] [place] [address] ProviderErika MD [address] [place] [address] Social History Tobacco Use Types [...] D Community Services : Outpt Cardiac Rehab [facility] [phone] F [phone] They will call pt w/ appt time. SUZANNA HAINES, Workcell Operator - 11/30/2018 15:30 EDT Driving After Discharge : Do not drive, Other: No driving or operating heavy machinery until released by a physician. JAY JAY CRESPO MD-NEU - 11/22/2018 11:16 EDT documented in this encounter Plan of Treatment Not on file documented as of this encounter Visit Diagnoses Not on filedocumented in this encounter
--- OUTSIDE RECORDS SUMMARY | 2025-03-02 15:30 | XMS_ITS | Encounter Summary ---
Author Organization [employer] ([place], [place], [place], [place]) Address [address] [place] [address] Care Team Providers Care Traffic Inspector Name Role Phone Unavailable Primary Care Provider Unavailabl e Encounter Details Date Type Department Care Team (Late st Contact Info) Description 11/29/2018 Transcribed Document [facility] [place] Medicine [address] [place] [address] ProviderErika MD [address] [place] [address] Social History Tobacco Use Types Packs/Day Years Used Date Smoking Tobacco: Never Assessed Sex and Gender Information Value Date Recorded Sex Assigned at Not on file Legal Sex Male 5:03 PM CDT Gender Identity Not on file Sexual Orientation Not on file documented as of this encounter Miscellaneous Notes * Cerner Conversion Note - Erika ProviderMD - 11/29/2018 2:51 PM CDT [facility] IntraOp Summary Primary Physician: RIGOBERTO YU MD Finalized Date/Time: 11/29/18 15:07:06 Pt. Name: DOTTIE VILLASENOR Ladan Gerber/Sex: 1940 Male Med Rec #: [id number] Physician: JULIO CESAR CARVALHO MD-[facility] Financial #: [id number] Pt. Type: I Room/Bed: [facility]/ Admit/Disch: 11/16/18 06:45:00 - Institution: [facility] - Case Attendance Entry 1 Entry 2 Entry 3 Case Attendee RIGOBERTO YU MD Reynolds, Ashley N, RN JONNATHAN LUBIN Role Performed Surgeon/Proceduralist, Nozzleman, First Scrub, First First Time In 11/29/18 [...] Patino Crna CORNEA, MIHAELA, MD Role Performed NETWORK ADMIN/Nurse Chemical Sales Representative Anesthesiologist of Record Time In 11/29/18 14:47:00 11/29/18 14:47:00 Time Out 11/29/18 15:09:00 11/29/18 15:09:00 Procedure EGD w Control Bleeding EGD w Control Bleeding Other Attendee Superficial Wound Closed By: Last Modified By: Gem Parekh RN Reynolds, Ashley N, RN 11/29/18 15:06:55 11/29/18 15:06:55 [facility] - Case Attendance Audit 11/29/18 15:06:55 Receiving Tank Operator: [email or web address] Modifier: [email or web address] 1 <+> Time Out 1 <*> Procedure EGD w Control Bleeding 2 <+> Time Out 2 <*> Procedure EGD w Control Bleeding 3 <+> Time Out 3 <*> Procedure EGD w Control Bleeding 4 <+> Time Out 4 <*> Procedure EGD w Control Bleeding 5 <+> Time Out 5 <*> Procedure EGD w Control Bleeding 11/29/18 14:59:16 Receiving Tank Operator: [email or web address] Modifier: [email or web address] <+> 1 Procedure <+> 2 Procedure <+> 3 Procedure <+> 4 Procedure <+> 5 Procedure 11/29/18 14:59:14 Receiving Tank Operator: [email or web address] Modifier: [email or web address] 1 <-> Procedure Esophagogastroduodenoscopy 2 <-> Procedure Esophagogastroduodenoscopy 3 <-> Procedure Esophagogastroduodenoscopy 4 <-> Procedure Esophagogastroduodenoscopy 5 <-> Procedure Esophagogastroduodenoscopy 11/29/18 14:49:19 Receiving Tank Operator: [email or web address] Modifier: [email or web address] 1 <*> Procedure Esophagogastroduodenoscopy 2 <+> Time In 2 <*> Procedure Esophagogastroduodenoscopy 3 <+> Time In 3 <*> Procedure Esophagogastroduodenoscopy 4 <+> Time In 4 <*> Procedure Esophagogastroduodenoscopy 5 <+> Time In 5 <*> Procedure Esophagogastroduodenoscopy 11/29/18 14:48:29 Receiving Tank Operator: [email or web address] Modifier: [email or web address] 1 <+> Time In 1 <*> Procedure Esophagogastroduodenoscopy <+> 2 Case Attendee <+> 2 Role Performed <+> 2 Procedure <+> 3 Case Attendee <+> 3 Role Performed <+> 3 Procedure <+> 4 Case Attendee <+> 4 Role Performed <+> 4 Procedure <+> 5 Case Attendee <+> 5 Role Performed <+> 5 Procedure [facility] - Case times Entry 1 Patient In Room Time 11/29/18 14:47:00 Out Room Time 11/29/18 15:09:00 Anesthesia Start Time 11/29/18 14:47:00 Stop Time 11/29/18 15:09:00 Surgery / Procedure Times Start Time 11/29/18 14:51:00 Stop Time 11/29/18 15:06:00 Last Modified By: Gem Parekh RN 11/29/18 15:06:53 [facility] - Case times Audit 11/29/18 15:06:53 Receiving Tank Operator: [email or web address] Modifier: [email or web address] <+> 1 Out Room Time <+> 1 Stop Time <+> 1 Stop Time 11/29/18 14:51:51 Receiving Tank Operator: [email or web address] Modifier: [email or web address] <+> 1 Start Time [facility] - Delays Entry 1 Delay Reason Other Duration 0 Minute(s) Last Modified By: Gem Parekh RN 11/29/18 14:48:33 [facility] - Departure from OR Entry 1 Integumentary Assessment Integumentary WDL Assessment WDL Transfer/Handoff Transfer to PACU Phase I Handoff Method Bedside/Face to face Post-op Transport Stretcher/Gurney Via Patient Transport Gem Parekh RN, Accompanied by Cassie Patino Crna Last Modified By: Gem Parekh RN 11/29/18 14:48:36 [facility] - Endoscopy Details Entry 1 Abdomen Procedure Soft, Non-Tender Assessment Procedure Abdomen 11/29/18 14:47:00 Assessment D/T Radio Frequency Ablation Last Modified By: Gem Parekh RN 11/29/18 14:48:41 [facility] - Fire Risk Assessment Entry 1 [...] Modified By: Gem Parekh RN 11/29/18 14:48:48 [facility] - General Case Lamination Spinner 1 Case Information OR Endo 01 [facility] Case Level 1 Room Verified Yes Wound Class II - Clean-Contaminated Specialty SN Gastroenterology Anesthesia Type MAC ASA Class 4 Diagnosis Preop Diagnosis GI Bleed Postop Same As Preop Yes Postop Diagnosis GI Bleed Last Modified By: Gem Parekh RN 11/29/18 14:48:58 [facility] - Implant Log Entry 1 Entry 2 Type Implant (Synthetic) Implant (Synthetic) Implant Log Implant Type Tissue Implant Type Implant CLIP II RESOLUTION CLIP II RESOLUTION Identification [id number] Description Implant Quantity 1 1 Implant Site Implant Identification Model Number Implant Identification Serial Number Implant [id number] Identification Lot Number Implant [place] Sci:Interv [place] Sci:Interv Identification Cardiology Cardiology Circular Saw Filer Name: Implant [id number] Identification Catalog Number Implant Size Implant Has an Yes Yes Expiration Date Implant Expiration 09/05/21 07/10/21 Date Wasted Radioactive Material Time Implanted Tissue Implant Continue for Tissue Implant Documentation Tissue Identification Number Graft Prep Per Circular Saw Filer Instructions: Tissue Preparation Method: Reconstitution Solution: Reconstitution Solution Lot Number Reconstitution Solution Expiration Date: Thawing Solution Thawing Solution Lot Number Thawing Solution Expiration Date Preparation Materials, Other Preparation Materials, Other Lot Number Preparation Materials, Other Expiration Date Tissue Prepared/Processed By Circular Saw Filer Paperwork Completed Implant Type Comment clip failed Last Modified By: Gem Parekh RN Reynolds, Ashley N, RN 11/29/18 15:00:27 11/29/18 15:06:45 [facility] - Implant Log Audit 11/29/18 15:06:45 Receiving Tank Operator: GARY Modifier: [email or web address] 2 <*> Implant Identification Description CLIP II RESOLUTION [id number] <+> Implant Type Comment 11/29/18 15:04:27 Receiving Tank Operator: [email or web address] Modifier: [email or web address] <+> 2 Implant Identification Description <+> 2 Implant Identification Lot Number <+> 2 Implant Identification Circular Saw Filer Name: <+> 2 Implant Expiration Date <+> 2 Implant Quantity <+> 2 Implant Identification Catalog Number <+> 2 Implant Has an Expiration Date <+> 2 Type [facility] - Intraoperative Assessment Entry 1 Valid History / Yes Physical in Chart Preoperative Yes Checklist Reviewed/Evaluated Patient is Latex No Sensitive Level of WDL Consciousness (WDL = Alert, Oriented to Person, Place, and Time) Last Modified By: Gem Parekh RN 11/29/18 14:49:01 [facility] - Intraoperative Equipment Entry 1 Entry [...] Ashley N, RN 11/29/18 14:49:07 11/29/18 14:56:48 [facility] - Intraoperative Equipment Audit 11/29/18 14:56:48 Receiving Tank Operator: [email or web address] Modifier: [email or web address] <+> 2 Photo <+> 2 Video <+> 2 Electrocardiogram (ECG) Electrode Placement <+> 2 Blood Pressure Location <+> 2 Pulse Oximeter Probe Site <+> 2 Flexible Endoscopes Used <+> 2 Scope Serial Number/Identification Number <+> 2 Type [facility] - Patient Positioning Entry 1 Procedure [...] Modified By: Gem Parekh RN 11/29/18 14:59:16 [facility] - Patient Positioning Audit 11/29/18 14:59:16 Receiving Tank Operator: [email or web address] Modifier: [email or web address] <+> 1 Procedure 11/29/18 14:59:14 Receiving Tank Operator: [email or web address] Modifier: [email or web address] 1 <-> Procedure Esophagogastroduodenoscopy [facility] - Sign In Entry 1 Patient, Site, Yes Procedure Identified Surgical Consent Yes Confirmed Surgical Site N/A Marked by person performing procedure Airway Hypothermia Risk No Warming Measures No Taken Last Modified By: Gem Parekh RN 11/29/18 14:49:18 [facility] - Sign Out Entry 1 RN [...] Modified By: Gem Parekh RN 11/29/18 15:07:01 [facility] - Surgical Procedures Entry 1 Procedure EGD w Control Bleeding Primary Procedure Yes Primary Surgeon RIGOBERTO YU MD Start 11/29/18 14:51:00 Stop 11/29/18 15:06:00 Anesthesia Type MAC Specialty SN Gastroenterology Wound Class II - Clean-Contaminated Last Modified By: Gem Parekh RN 11/29/18 15:07:04 [facility] - Surgical Procedures Audit 11/29/18 15:07:04 Receiving Tank Operator: [email or web address] Modifier: [email or web address] <+> 1 Stop 11/29/18 14:59:15 Receiving Tank Operator: [email or web address] Modifier: [email or web address] 1 <*> Procedure Esophagogastroduodenoscopy 1 <+> Start 11/29/18 14:49:23 Receiving Tank Operator: [email or web address] Modifier: [email or web address] 1 <*> Procedure Esophagogastroduodenoscopy 1 <+> Specialty [facility] - Time Out Entry 1 Procedure [...] Modified By: Gem Parekh RN 11/29/18 14:59:17 [facility] - Time Out Audit 11/29/18 14:59:17 Receiving Tank Operator: [email or web address] Modifier: [email or web address] <+> 1 Procedure to be Performed 11/29/18 14:59:15 Receiving Tank Operator: [email or web address] Modifier: [email or web address] 1 <-> Procedure to be Performed Esophagogastroduodenoscopy Case Comments <None> Finalized By: Gem Parekh RN Document Signatures Signed By: Gem Parekh RN 11/29/18 15:07 Electronically signed by Parveen [facility] Conversion Thermodynamics Engineer Cerner at 12/08/2022 12:33 PM CDT documented in this encounter Plan of Treatment Not on file documented as of this encounter Visit Diagnoses Not on filedocumented in this encounter
--- OUTSIDE RECORDS SUMMARY | 2025-03-02 15:30 | XMS_ITS | Encounter Summary ---
Author Organization [employer] ([place], [place], [place], [place]) Address [address] [place] [address] Care Team Providers Care Scheduling Assistant Name Role Phone Unavailable Primary Care Provider Unavailabl e Encounter Details Date Type Department Care Team (Late st Contact Info) Description 11/22/2018 Transcribed Document [facility] [place] Family Medicine [address] [place] [address] ProviderErika MD [address] [place] [address] Social History Tobacco Use Types Packs/Day Years Used Date Smoking Tobacco: Never Assessed Sex and Gender Information Value Date Recorded Sex Assigned at Not on file Legal Sex Male 5:03 PM CDT Gender Identity Not on file Sexual Orientation Not on file documented as of this encounter Miscellaneous Notes * Cerner Conversion Note - Historical ProviderMD - 11/22/2018 12:18 PM CDT SERVICE OPERATOR Attempt to Treat Entered On: 11/22/2018 12:20 EDT Performed On: 11/22/2018 12:18 EDT by JOSSUE RODRÍGUEZ SLP Attempt to Treat Inability to Treat Comment : New orders received from Neurologist. ST is currently following pt for dysphagia. Will await neuro dx for full communication JOSSUE Mccarthy, SERVICE OPERATOR - 11/22/2018 12:18 EDT documented in this encounter Plan of Treatment Not on file documented as of this encounter Visit Diagnoses Not on filedocumented in this encounter
--- OUTSIDE RECORDS SUMMARY | 2025-03-02 15:30 | XMS_ITS | Encounter Summary ---
Author Organization [employer] ([place], [place], [place], [place]) Address [address] [place] [address] Care Team Providers Care Physician/Ophthalmologist Name Role Phone Unavailable Primary Care Provider Unavailabl e Encounter Details Date Type Department Care Team (Late st Contact Info) Description 11/29/2018 Transcribed Document [facility] [place] [address] [place] [address] ProviderErika MD [address] [place] [address] Social History Tobacco Use Types [...] CHARLES LIAO RN - 11/29/2018 7:19 EDT documented in this encounter Plan of Treatment Not on file documented as of this encounter Visit Diagnoses Not on filedocumented in this encounter
--- OUTSIDE RECORDS SUMMARY | 2025-03-02 15:30 | XMS_ITS | Encounter Summary ---
Author Organization [employer] ([place], [place], [place], [place]) Address [address] [place] [address] Care Team Providers Care Rotor Casting Machine Setup Operator Name Role Phone Unavailable Primary Care Provider Unavailabl e Encounter Details Date Type Department Care Team (Late st Contact Info) Description 11/25/2018 Transcribed Document [facility] Family Medicine [address] [place] [address] ProviderErika MD [address] [place] [address] Social History Tobacco Use Types [...]
--- OUTSIDE RECORDS SUMMARY | 2025-03-02 15:30 | XMS_ITS | Encounter Summary ---
Author Organization [employer] ([place], [place], [place], [place]) Address [address] [place] [address] Care Team Providers Care Video News Editor Name Role Phone Unavailable Primary Care Provider Unavailabl e Encounter Details Date Type Department Care Team (Late st Contact Info) Description 11/29/2018 Transcribed Document [facility] Family Medicine [address] [place] [address] ProviderErika MD [address] [place] [address] Social History Tobacco Use Types Packs/Day Years Used Date Smoking Tobacco: Never Assessed Sex and Gender Information Value Date Recorded Sex Assigned at Not on file Legal Sex Male 5:03 PM CDT Gender Identity Not on file Sexual Orientation Not on file documented as of this encounter Miscellaneous Notes * Cerner Conversion Note - Erika ProviderMD - 11/29/2018 2:51 PM CDT [facility] Endo PACU Summary Primary Physician: RIGOBERTO YU MD Finalized Date/Time: 11/29/18 15:36:07 Pt. Name: DOTTIE VILLASENORO.B./Sex: 1940 Male Med Rec #: [id number] Physician: JULIO CESAR CARVALHO MD-[facility] Financial #: [id number] Pt. Type: I Room/Bed: 330/1 Admit/Disch: 11/16/18 06:45:00 - Institution: [facility] Endo PACU Case Times Entry 1 In PACU I 11/29/18 15:10:00 Ready for PACU 11/29/18 15:35:00 Discharge Discharge from PACU 11/29/18 15:35:00 I Last Modified By: Destiney Mckenzie RN 11/29/18 15:35:51 [facility] Endo PACU Case Times Audit 11/29/18 15:35:51 Dentist/Owner: [email or web address] Modifier: [email or web address] <+> 1 Ready for PACU Discharge <+> 1 Discharge from PACU I Finalized By: Destiney Mckenzie RN Document Signatures Signed By: Destiney Mckenzie RN 11/29/18 15:36 Electronically signed by Parveen [facility] Conversion Leave Specialist Cerner at 12/08/2022 12:16 PM CDT documented in this encounter Plan of Treatment Not on file documented as of this encounter Visit Diagnoses Not on filedocumented in this encounter
--- OUTSIDE RECORDS SUMMARY | 2025-03-02 15:30 | XMS_ITS | Encounter Summary ---
Author Organization [employer] ([place], [place], [place], [place]) Address [address] [place] [address] Care Team Providers Care Marketing Secretary Name Role Phone Unavailable Primary Care Provider Unavailabl e Encounter Details Date Type Department Care Team (Late st Contact Info) Description 11/21/2018 Transcribed Document [facility] [place] Family Medicine [address] [place] [address] ProviderErika MD [address] [place], [place] [id number] Social History Tobacco Use Types Packs/Day Years [...] Bedtime, Routine HEENT saliva substitutes - 1 [place], Buccal, Liquid, Q2H, PRN for Other (See [...] Radiology results Radiology Results (Last 48 hours) [id number] -- 11/16/2018 06:45 CR Chest 1 Vw Portable (11/20/2018 04:12) Result: PORTABLE CHEST 11/20/2018 4:00 AMHISTORY: Shortness of breathCOMPARISON: 1 day priorFINDINGS: A [place]-Jovanna catheter tip terminates in the SVC. The [place]-Ganzcatheter has been retracted. The cardiac silhouette is [...]
--- OUTSIDE RECORDS SUMMARY | 2025-03-02 15:30 | XMS_ITS | Encounter Summary ---
Author Organization [employer] ([place], [place], [place], [place]) Address [address] [place] [address] Care Team Providers Care Chemical Research Worker Name Role Phone Unavailable Primary Care Provider Unavailabl e Encounter Details Date Type Department Care Team (Late st Contact Info) Description 11/17/2018 Transcribed Document [facility] [place] [address] [place] [address] ProviderErika MD [address] [place] [address] Social History Tobacco Use Types [...]
--- OUTSIDE RECORDS SUMMARY | 2025-03-02 15:30 | XMS_ITS | Encounter Summary ---
Author Organization [employer] ([place], [place], [place], [place]) Address [address] [place] [address] Care Team Providers Care Measurement And Sensing Technician Name Role Phone Unavailable Primary Care Provider Unavailabl e Encounter Details Date Type Department Care Team (Late st Contact Info) Description 11/29/2018 Transcribed Document [facility] Family Medicine [address] [place] [address] ProviderErika MD [address] [place], [place] [id number] Social History Tobacco Use Types Packs/Day Years [...] Non-distended, Normal bowel sounds. Integumentary: Warm, Dry, [place], incision is C/D/I. Neurologic: Alert, left sided [...] (Current Encounter/Past 24 Hours) PT 31.3 Second(s) MT 11/29/2018 06:38 PTT 27.6 Second(s) 11/28/2018 08:53 INR 3.0 MT 11/29/2018 06:38 . Impression and Plan Plan: [...] time of discharge- has sent information to [facility] -[facility] 11/24/18 -POD#8 -[facility]ing [facility] -Awaiting response from 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 11/26/18 -POD#10 -Heparin drip and coumadin for LUE DVT -Left arm swelling improved today -INR 1.1 today, INR goal 2-3 -Possibly transfer to [facility] this weekend 11/27/18: -POD#11 -Left arm swelling continues to improve -Continues on Coumadin and heparin bridge -INR: 1.4 (1.1 yesterday) goal: 2 to 3 -[facility] soon,? Tomorrow 11/28/18: -POD#12 -BP [...] blood has been set up. -[facility]18: -POD#13 -Upper endoscopy showed [...] D/C due to GI bleed. -[facility] EF 55-60% per echo 11/16/18 DVT Prophylaxis: [...]
--- OUTSIDE RECORDS SUMMARY | 2025-03-02 15:30 | XMS_ITS | Clinical Summary ---
Author Organization [email or web address] ([place], [place], [place], [place]) Address [address] [place] [address] Care Team Providers Care Deployment Engineer Name Role Phone Unavailable Primary Care [...]
--- OUTSIDE RECORDS SUMMARY | 2025-03-02 15:30 | XMS_ITS | Encounter Summary ---
Author Organization [employer] ([place], [place], [place], [place]) Address [address] [place] [address] Care Team Providers Care Roll Plugger Machine Operator Name Role Phone Unavailable Primary Care Provider Unavailabl e Encounter Details Date Type Department Care Team (Late st Contact Info) Description 11/29/2018 Transcribed Document [facility] [place] [address] [place] [address] ProviderErika MD [address] [place], [place] [phone] Social History Tobacco Use Types Packs/Day Years Used Date Smoking Tobacco: Never Assessed Sex and Gender Information Value Date Recorded Sex Assigned at Not on file Legal Sex Male 5:03 PM CDT Gender Identity Not on file Sexual Orientation Not on file documented as of this encounter Miscellaneous Notes * Cerner Conversion Note - Erika ProviderMD - 11/29/2018 1:37 PM CDT Discharge Summary, COMMERCIAL BANKER Entered On: 11/29/2018 13:40 EDT Performed On: 11/29/2018 13:37 EDT by JOSSUE RODRÍGUEZ COMMERCIAL BANKER Discharge Notation. COMMERCIAL BANKER Dysphagia Treatment After Discharge : No Discharge Diet : Regular Discharge Liquids : Thin Discharge Summary Comment, COMMERCIAL BANKER : Attempted to see pt for language [...] - 11/29/2018 13:37 EDT LTG Lang/Comm/Cog LTG COMMERCIAL BANKER Alf Goal 1 Alf Goal 2 Goals : Improved spoken language expression at the time of discharge Improved auditory/spoken language comprehension at the time of discharge Status : Discontinue Discontinue JOSSUE RODRÍGUEZ SLP - 11/29/2018 13:37 EDT JOSSUE RODRÍGUEZ, [facility] - 11/29/2018 13:37 EDT STG Lang_Comm_Cog Motor Speech STG Grid Goal #1 Activity : Improve intelligibility of speech Status : Discontinue JOSSUE RODRÍGUEZ [facility] - 11/29/2018 13:37 EDT Auditory Comprehension Grid Goal #1 Goal #2 Activity : Follow directions, 3 step commands simple Comprehend paragraph complex Status : Discontinue Discontinue JOSSUE RODRÍGUEZ [facility] - 11/29/2018 13:37 EDT JOSSUE RODRÍGUEZ, [facility] - 11/29/2018 13:37 EDT Verbal Expression STG Grid Goal #1 Activity : Generate items in a category Status : Discontinue JOSSUE RODRÍGUEZ COMMERCIAL BANKER - 11/29/2018 13:37 EDT Reading Comprehension STG Grid Goal #1 Activity : Visual perception deficits Status : Discontinue JOSSUE RODRÍGUEZ [facility] - 11/29/2018 13:37 EDT Attention STG Grid Goal #1 Activity : Other: Probe Status : Goal met Date Met : 11/24/2018 EDT JOSSUE RODRÍGUEZ [facility] - 11/29/2018 13:37 EDT Memory STG Grid Goal #1 Goal #2 Goal #3 Activity : Other: Probe Improve short term functional delayed Improve short term working memory Status : Goal met Discontinue Discontinue Date Met : 11/24/2018 EDT JOSSUE RODRÍGUEZ, [facility] - 11/29/2018 13:37 EDT JOSSUE RODRÍGUEZ, [facility] - 11/29/2018 13:37 EDT JOSSUE RODRÍGUEZ, [facility] - 11/29/2018 13:37 EDT Problem Solving STG Grid Goal #1 Goal #2 Goal #3 Goal #4 Activity : Generate a list of simple/concrete items Label items in a category, complex/abstract Other: Probe Improve simple problem solving Status : Discontinue Discontinue Goal met Discontinue Date Met : 11/24/2018 EDT JOSSUE RODRÍGUEZ, COMMERCIAL BANKER - 11/29/2018 13:37 EDT JOSSUE RODRÍGUEZ, [facility] - 11/29/2018 13:37 EDT JOSSUE RODRÍGUEZ, [facility] - 11/29/2018 13:37 EDT JOSSUE RODRÍGUEZ, COMMERCIAL BANKER - 11/29/2018 13:37 EDT Swallow Plan/Goals Swallow LTG Grid COMMERCIAL BANKER Alf Goal #1 COMMERCIAL BANKER Public Health Registrar Goal #2 Swallow LTG : Establish safe [...]
--- OUTSIDE RECORDS SUMMARY | 2025-03-02 15:30 | XMS_ITS | Encounter Summary ---
Author Organization [email or web address] ([place], [place], [place], [place]) Address [address] [place] [address] Care Team Providers Care Billing And Accounting Staff Assistant Name Role Phone Unavailable Primary Care Provider Unavailabl e Encounter Details Date Type Department Care Team (Late st Contact Info) Description 11/25/2018 Transcribed Document [facility] [place] [address] [place] [address] ProviderErika MD [address] [place] [address] Social History Tobacco Use Types [...] EDT Performed On: 11/25/2018 17:00 EDT by Elissa Rodarte RN Chart Check Chart Reviewed Date and Time : 11/25/2018 16:38 EDT Powerplans Initiated/Discontinued as Appropriate : Yes All Active Orders Reviewed : Yes Elissa Rodarte RN - 11/25/2018 16:38 EDT Electronically signed by Christina Saini Conversion Calendering Machine Operator Cerner at 12/08/2022 12:37 PM CDT documented in this encounter Plan of Treatment Not on file documented as of this encounter Visit Diagnoses Not on filedocumented in this encounter
--- OUTSIDE RECORDS SUMMARY | 2025-03-02 15:30 | XMS_ITS | Encounter Summary ---
Author Organization [employer] ([place], [place], [place], [place]) Address [address] [place] [address] Care Team Providers Care Coding Machine Operator Name Role Phone Unavailable Primary Care Provider Unavailabl e Encounter Details Date Type Department Care Team (Late st Contact Info) Description 11/30/2018 Transcribed Document [facility] [place] Family Medicine [facility] [place] [address] ProviderErika MD [address] [place] [address] Social History Tobacco Use Types [...] Jose MD - 11/30/2018 3:31 PM CDT [address] [address] Patient Copy Patient Information: Name: DOTTIE VILLASENOR Current Date: 11/30/2018 15:31:38 : 1940 Patient Address: [address] [place] [id number] Patient Attending Physician: JULIO CESAR CARVALHO MD-[facility] Primary Care Provider: DEMETRICE ARMIJO NP-[facility] Primary Care Provider Discharge Diagnosis: Acute blood loss anemia; Aortic insufficiency; Coronary artery disease; GI bleed; LUE DVT (deep venous thrombosis); Right MCA CVA (cerebral vascular accident); Thoracic ascending aortic aneurysm Weight on Admission: 174 lb, 5 oz Weight at Discharge: 164 lb, 1 oz Comment: Follow-up Instructions: With: Address: When: JOHN BOWEN [address], [address] [place] [address] Business (1) Within 6 weeks Comments: Patient should call for a follow up appointment with [facility]. Discharge Instructions: Driving after Discharge: Do not drive, Other: No driving or operating heavy machinery until released by a physician. Community Services: Outpt Cardiac Rehab [facility] [phone] They will call pt w/ appt time. [...] 09/17/2005 Document Revised: 01/15/2017 Document Reviewed: 02/10/2014 Elsewise[employer] Interactive Patient Education ? 2017 [employer] CIGARETTE SMOKING: The facts are clear, cigarette smoking will shorten your life. Smoking can cause many illnesses along the way. As a healthcare provider, we recommend that you stop smoking. Assistance with quitting is available by contacting 9-191-ZQGQ-NOW. This is a free resource providing counseling, [...] Be sure to sign up for the [facility] patient portal, which gives you 16/03 access to your medical information ??? including these discharge instructions ??? using your computer, smartphone, or tablet. Just go to [place] to get started. Questions? Call . [facility] would like to thank you for allowing us to assist you with your healthcare needs. HAMILTON Jarvis ROBERT H, (or novelties sales representative) have received the above patient education materials/instructions and have verbalized understanding: Patient Signature _ Date/Time Patient Machine Driller Signature (if needed) Date/Time Clinician/Hospital Machine Driller Signature (if needed) Date/Time Electronically signed by Parveen [facility] Conversion Formstone Fitter Felipe at 12/08/2022 12:33 PM CDT documented in this encounter Plan of Treatment Not on file documented as of this encounter Visit Diagnoses Not on filedocumented in this encounter
--- OUTSIDE RECORDS SUMMARY | 2025-03-02 15:30 | XMS_ITS | Encounter Summary ---
Author Organization [employer] ([place], [place], [place], [place]) Address [address] [place] [address] Care Team Providers Care Endocrinology Specialist Name Role Phone Unavailable Primary Care Provider Unavailabl e Encounter Details Date Type Department Care Team (Late st Contact Info) Description 11/18/2018 Transcribed Document [facility] Cardiology [address] [place] [address] Lc Armendariz MD [address] [facility] [address] [place] [address] Social History Tobacco Use Types [...] mg, Oral, At Bedtime saliva substitutes: 1 [place], Buccal, Q2H, PRN: Other (See Comment) sodium [...] of motion, Normal strength. Integumentary: Warm, Dry, [place]. Neurologic: Alert, Oriented. Psychiatric: Cooperative, Appropriate mood & affect. Results Review NOV 18 03:37 138 106 19 / H 200 3.8 27 0.90 \ NOV 18 03:37 \ L 10.2 / H 17.7 L 103 / L 30.3 \ Cardiac Markers (Current Encounter/Past 24 Hours) No Cardiac Marker Results Found (Past 24 Hours) Radiology Results (Last 48 hours) [id number] -- 11/16/2018 06:45 CR Chest 1 Vw Portable (11/16/2018 12:55) Result: PORTABLE CHEST HISTORY: Pneumothorax.COMPARISON: 1 day prior.FINDINGS: The heart is stable in size. The patient is status post mediansternotomy. The endotracheal tube is in the mid thoracic trachea. Anasogastric tube extends below the diaphragm. Left-sided [place]-Ganzcatheter tip is in the left main pulmonary [...] day.FINDINGS: The heart is normal in size. [place]-Jovanna catheter tips in theleft pulmonary artery. There [...]
--- OUTSIDE RECORDS SUMMARY | 2025-03-02 15:30 | XMS_ITS | Encounter Summary ---
Author Organization [employer] ([place], [place], [place], [place]) Address [address] [place] [address] Care Team Providers Care Cigarette Book Maker Name Role Phone Unavailable Primary Care Provider Unavailabl e Encounter Details Date Type Department Care Team (Late st Contact Info) Description 11/18/2018 Transcribed Document [facility] [place] [address] [place] [address] ProviderErika MD [address] [place] [address] Social History Tobacco Use Types Packs/Day Years Used Date Smoking Tobacco: Never Assessed Sex and Gender Information Value Date Recorded Sex Assigned at Not on file Legal Sex Male 5:03 PM CDT Gender Identity Not on file Sexual Orientation Not on file documented as of this encounter Miscellaneous Notes * Cerner Conversion Note - Historical ProviderMD - 11/18/2018 2:00 AM CDT Edge Worker Details Entered On: 11/18/2018 4:41 EDT Performed [...] DANYA GILES RN - 11/18/2018 4:41 EDT documented in this encounter Plan of Treatment Not on file documented as of this encounter Visit Diagnoses Not on filedocumented in this encounter
--- OUTSIDE RECORDS SUMMARY | 2025-03-02 15:30 | XMS_ITS | Encounter Summary ---
Author Organization [employer] ([place], [place], [place], [place]) Address [address] [place] [address] Care Team Providers Care Dye Can Operator Name Role Phone Unavailable Primary Care Provider Unavailabl e Encounter Details Date Type Department Care Team (Late st Contact Info) Description 11/17/2018 Transcribed Document [facility] [address] [place] [address] ProviderErika MD [address] [place], [place] [phone] Social History Tobacco Use Types Packs/Day Years [...] 1940 Associated Diagnoses: CAD (coronary artery disease), [place] coronary artery; Thrombocytopenia; Coronary artery disease; HTN [...] Palpable bilateral DP pulses. Integumentary: Warm, Dry, [place]. Neurologic: Not alert. Review / Management Results review: NOV 17 03:12 142 110 20 / H 115 4.1 25 1.10 \ NOV 17 03:12 \ L 10.7 / H 15.3 L 112 / L 32.1 \ Blood Gases (Current Encounter/Past 24 Hours) pH Art 7.48 [place] 11/17/2018 05:17 pCO2 Art 31.2 LOW 11/17/2018 [...] 43.0 11/16/2018 12:06 pO2 Art POC 433.0 [place] 11/16/2018 12:06 HCO3 Art POC 28.5 [place] 11/16/2018 12:06 tCO2 Art POC 30.0 [place] 11/16/2018 12:06 BE Art POC 4.0 [place] 11/16/2018 12:06 sO2 Art POC >99.9 [place] 11/16/2018 12:06 ABG Num of Draw Attempts 1 11/17/2018 05:17 Coagulation Results (Current Encounter/Past 24 Hours) No Coagulation Results Found (Past 24 Hours) . Impression and Plan Plan: 11/17/18 -POD#1 -MTs left in place secondary to drainage EF 55-60% per echo 11/16/18 DVT Prophylaxis: SCDs Diagnosis CAD (coronary artery disease), [place] coronary artery - Admitting, Medical. Thrombocytopenia - [...]
--- OUTSIDE RECORDS SUMMARY | 2025-03-02 15:30 | XMS_ITS | Encounter Summary ---
Author Organization [employer] ([place], [place], [place], [place]) Address [address] [place] [address] Care Team Providers Care Employee Benefits Manager Name Role Phone Unavailable Primary Care Provider Unavailabl e Encounter Details Date Type Department Care Team (Late st Contact Info) Description 11/17/2018 Transcribed Document [facility] [place] [address] [place] [address] ProviderErika MD [address] [place] [address] Social History Tobacco Use Types [...] ROGER LEWIS, PT - 11/17/2018 13:44 EDT Electronically signed by Christina Saini Conversion Wide Area Network Administrator Cerner at 12/08/2022 12:19 PM CDT documented in this encounter Plan of Treatment Not on file documented as of this encounter Visit Diagnoses Not on filedocumented in this encounter
--- OUTSIDE RECORDS SUMMARY | 2025-03-02 15:30 | XMS_ITS | Encounter Summary ---
Author Organization [employer] ([place], [place], [place], [place]) Address [address] [place] [address] Care Team Providers Care Two Needle Machine Operator Name Role Phone Unavailable Primary Care Provider Unavailabl e Encounter Details Date Type Department Care Team (Late st Contact Info) Description 11/25/2018 Transcribed Document [facility] [place] [address] [place] [address] ProviderErika MD [address] [place] [address] Social History Tobacco Use Types [...] at goal rate. Did have BM yesterday. SYNCHRONIZER okayed pt for po diet this am- [...] (11/24) BMI: 23 IBW: 79kg/100% EST NEEDS: 9226-8419 kcal (25-30kcal/kg), 95g pro (1.2g/kg) DAVION GREEN [...] GREEN RD, TAMMIE - 11/25/2018 15:06 EDT documented in this encounter Plan of Treatment Not on file documented as of this encounter Visit Diagnoses Not on filedocumented in this encounter
--- OUTSIDE RECORDS SUMMARY | 2025-03-02 15:30 | XMS_ITS | Encounter Summary ---
Author Organization [employer] ([place], [place], [place], [place]) Address [address] [place] [address] Care Team Providers Care Leather Cleaner Name Role Phone Unavailable Primary Care Provider Unavailabl e Encounter Details Date Type Department Care Team (Late st Contact Info) Description 11/30/2018 Transcribed Document [facility] [place] [address] [place] [address] ProviderErika MD [address] [place] [address] Social History Tobacco Use Types [...] 2 Tab, Oral, BID saliva substitutes, 1 [place], Buccal, Q2H, PRN Senokot, 17.2 mg= 2 Tab, Oral, BID Synthroid, 50 mcg= 2.5 mL, IV Push, Q48H Zofran, 4 mg= 2 mL, IV Push, Q4H, PRN documented in this encounter Plan of Treatment Not on file documented as of this encounter Visit Diagnoses Not on filedocumented in this encounter
--- NOTE | 2025-03-02 15:31 | XR_ITS ---
FINAL REPORT CLINICAL HISTORY: Right third toe pain, arthritis right foot COMPARISON: 04/06/2023 FINDINGS: RIGHT FOOT: 2 views of the right foot were obtained. There is no acute fracture or dislocation. However, visualization of the toes is limited of the mid and distal phalanges of the toes secondary to hammertoe deformity. There is no fracture identified of the visualized portions of the toes. There is mild degenerative change of the first MTP joint and of the midfoot. A small posterior calcaneal spur is identified. There is no soft tissue abnormality. IMPRESSION: Chronic changes as above. Given limitations of visualization of the mid and distal phalanges of the toes, if there is high suspicion of fracture recommend dedicated radiographs of the digits. Reviewed, Interpreted and Dictated by Anna Zabala MD Transcribed by Inge Fernandez Authenticated and [facility]
--- OUTSIDE RECORDS SUMMARY | 2025-03-02 15:31 | XMS_ITS | Encounter Summary ---
Author Organization [email or web address] ([place], [place], [place], [place]) Address [address] [place] [address] Care Team Providers Care Cook Fish Eggs Name Role Phone Unavailable Primary Care Provider Unavailabl e Encounter Details Date Type Department Care Team (Late st Contact Info) Description 11/23/2018 Transcribed Document [facility] [place] [address] [place] [address] ProviderErika MD [address] [place], [place] [phone] Social History Tobacco Use Types Packs/Day Years [...] 1940 Associated Diagnoses: CAD (coronary artery disease), [place] coronary artery; Thrombocytopenia; Coronary artery disease; [...] S1, S2, No edema. Integumentary: Warm, Dry, [place], incision is C/D/I. Neurologic: Alert, left sided [...] of discharge- MELLISSA has sent information to [facility] -Transfer to [address] EF 55-60% per echo 11/16/18 DVT Prophylaxis: SCDs Diagnosis CAD (coronary artery disease), [place] coronary artery - Admitting, Medical. Thrombocytopenia [...]
--- OUTSIDE RECORDS SUMMARY | 2025-03-02 15:31 | XMS_ITS | Encounter Summary ---
Author Organization [employer] ([place], [place], [place], [place]) Address [address] [place] [address] Care Team Providers Care Card Checker Name Role Phone Unavailable Primary Care Provider Unavailabl e Encounter Details Date Type Department Care Team (Late st Contact Info) Description 12/01/2018 Transcribed Document [facility] [place] Family Medicine [address] [place] [address] ProviderErika MD [address] [place] [address] Social History Tobacco Use Types Packs/Day Years Used Date Smoking Tobacco: Never Assessed Sex and Gender Information Value Date Recorded Sex Assigned at Not on file Legal Sex Male 5:03 PM CDT Gender Identity Not on file Sexual Orientation Not on file documented as of this encounter Miscellaneous Notes * Cerner Conversion Note - rEika Jose MD - 12/01/2018 1:36 PM CDT Nursing Discharge Summary Entered On: 12/01/2018 13:45 EDT Performed On: 12/01/2018 13:36 EDT by NAIN JARRETT science writer Documentation Discharge Date/Time : 12/01/2018 15:13 EDT NAIN JARRETT RN - 12/01/2018 16:34 EDT Patient Disposition, General : Discharge Discharge To : Rehabilitation unit/facility Name of Receiving Facility/Provider : [facility] Mode Of Departure, General Discharge : [...] information provided to patient and discussed at MT. Verbalized understanding. Worker's Compensation Paperwork Completed : NAIN Gomez RN - 12/01/2018 13:36 EDT documented in this encounter Plan of Treatment Not on file documented as of this encounter Visit Diagnoses Not on filedocumented in this encounter
--- OUTSIDE RECORDS SUMMARY | 2025-03-02 15:31 | XMS_ITS | Encounter Summary ---
Author Organization [employer] ([place], [place], [place], [place]) Address [address] [place] [address] Care Team Providers Care Pottery Kiln Builder Name Role Phone Unavailable Primary Care Provider Unavailabl e Encounter Details Date Type Department Care Team (Late st Contact Info) Description 11/28/2018 Transcribed Document [facility] [place] Family Medicine [address] [place] [address] ProviderErika MD [address] [place] [address] Social History Tobacco Use Types [...]
--- OUTSIDE RECORDS SUMMARY | 2025-03-02 15:31 | XMS_ITS | Encounter Summary ---
Author Organization [employer] ([place], [place], [place], [place]) Address [address] [place] [address] Care Team Providers Care Supervisor Pyrotechnic Loading Name Role Phone Unavailable Primary Care Provider Unavailabl e Encounter Details Date Type Department Care Team (Late st Contact Info) Description 12/01/2018 Transcribed Document [facility] [place] [address] [place] [address] ProviderErika MD [address] [place] [address] Social History Tobacco Use Types [...] KISHA BROWER, PT - 12/01/2018 18:30 EDT Skirt Trimmer Goals Mobility/Bed Mobility LTG PT Grid Goal [...] KISHA BROWER, PT - 12/01/2018 18:30 EDT documented in this encounter Plan of Treatment Not on file documented as of this encounter Visit Diagnoses Not on filedocumented in this encounter
--- OUTSIDE RECORDS SUMMARY | 2025-03-02 15:31 | XMS_ITS | Encounter Summary ---
Author Organization [employer] ([place], [place], [place], [place]) Address [address] [place] [address] Care Team Providers Care Glue Wheel Operator Name Role Phone Unavailable Primary Care Provider Unavailabl e Encounter Details Date Type Department Care Team (Late st Contact Info) Description 11/28/2018 Transcribed Document [facility] [place] [address] [place] [address] ProviderErika MD [address] [place] [address] Social History Tobacco Use Types [...] 11/28/2018 11:04:00 Trans: 11/28/2018 13:39:59 CC1: Robinson Collazo M.D. CC2: Negra Garcia M.D. CC3: Jacob Coy MD Electronically signed by Parveen [facility] Conversion Credit Support Specialist Cerner at 12/08/2022 12:31 PM CDT documented in this encounter Plan of Treatment Not on file documented as of this encounter Visit Diagnoses Not on filedocumented in this encounter
--- OUTSIDE RECORDS SUMMARY | 2025-03-02 15:31 | XMS_ITS | Encounter Summary ---
Author Organization [employer] [facility] ([place], [place], [place], [place]) Address [address] [place] [address] Care Team Providers Care Whey Department Operator Name Role Phone Unavailable Primary Care Provider Unavailabl e Encounter Details Date Type Department Care Team (Late st Contact Info) Description 11/28/2018 Transcribed Document [facility] [place] [address] [place] [address] ProviderErika MD [address] [place] [address] Social History Tobacco Use Types Packs/Day Years Used Date Smoking Tobacco: Never Assessed Sex and Gender Information Value Date Recorded Sex Assigned at Not on file Legal Sex Male 5:03 PM CDT Gender Identity Not on file Sexual Orientation Not on file documented as of this encounter Miscellaneous Notes * Cerner Conversion Note - Erika ProviderMD - 11/28/2018 10:19 AM CDT [facility] Main OR IntraOp Summary Primary Physician: SAMAN BERNSTEIN MD-GAE Finalized Date/Time: 11/30/18 09:14:16 Pt. Name: DOTTIE VILLASENOR D.O.B./Sex: 1940 Male Med Rec #: [id number] Physician: JULIO CESAR CARVALHO MD-[facility] Financial #: [id number] Pt. Type: I Room/Bed: [facility]/1 Admit/Disch: 11/16/18 06:45:00 - Institution: [facility] IntraOp Case Attendance Entry 1 Entry 2 Entry 3 Case Attendee SAMAN BERNSTEIN MD-SALMA GARCIA MD WURTELE, JOHN L. Role Performed Surgeon/Proceduralist, Anesthesiologist Psychotherapist Counselor, Ancillary First Time In 11/28/18 10:10:00 11/28/18 10:10:00 11/28/18 10:10:00 Time Out 11/28/18 10:35:00 11/28/18 10:35:00 11/28/18 10:35:00 Procedure Esophagogastroduodenosco Esophagogastroduodenosco Esophagogastroduodenosco py py py Other Attendee Superficial Wound Closed By: Last Modified By: Sukumar Casanova, Sukumar Gibbs, Sukumar Gibbs RN 11/28/18 11:00:07 11/28/18 11:00:07 11/28/18 11:00:07 Entry 4 Entry 5 Case Attendee Dianne Garcia, Sukumar Gibbs, TONJA Role Performed Transportation Dispatch Manager, First Transportation Dispatch Manager, Second Time In 11/28/18 10:10:00 11/28/18 10:10:00 Time Out 11/28/18 10:35:00 11/28/18 10:35:00 Procedure Esophagogastroduodenosco Esophagogastroduodenosco py py Other Attendee Superficial Wound Closed By: Last Modified By: Sukumar Casanova, Sukumar Gibbs RN 11/28/18 11:00:07 11/28/18 11:00:07 [facility] IntraOp Case Attendance Audit 11/28/18 11:00:07 Log Processor Operator: ANDRADES Modifier: PANTANOS 1 <+> Time Out 1 <*> Procedure Esophagogastroduodenoscopy 2 <+> Time Out 2 <*> Procedure Esophagogastroduodenoscopy 3 <+> Time Out 3 <*> Procedure Esophagogastroduodenoscopy 4 <+> Time Out 4 <*> Procedure Esophagogastroduodenoscopy 5 <+> Time Out 5 <*> Procedure Esophagogastroduodenoscopy 11/28/18 10:20:36 Log Processor Operator: FABIANAANOS Modifier: PANTANOS <+> 1 Procedure 2 <+> Time In 2 <*> Procedure Esophagogastroduodenoscopy 3 <+> Time In 3 <*> Procedure Esophagogastroduodenoscopy 4 <+> Time In 4 <*> Procedure Esophagogastroduodenoscopy 5 <+> Time In 5 <*> Procedure Esophagogastroduodenoscopy [facility] IntraOp Case Times Entry 1 Patient In Room Time 11/28/18 10:10:00 Out Room Time 11/28/18 10:35:00 Anesthesia Start Time 11/28/18 10:10:00 Stop Time 11/28/18 10:35:00 Surgery / Procedure Times Start Time 11/28/18 10:19:00 Stop Time 11/28/18 10:33:00 Last Modified By: Sukumar Casanova RN 11/28/18 10:59:40 [facility] IntraOp Case Times Audit 11/28/18 10:59:40 Log Processor Operator: PANTANOS Modifier: PANTANOS <+> 1 Out Room Time <+> 1 Stop Time <+> 1 Stop Time 11/28/18 10:22:00 Log Processor Operator: PANTANOS Modifier: PANTANOS <+> 1 Start Time [facility] IntraOp Departure from OR Entry 1 Integumentary Assessment Transfer/Handoff Transfer to PACU Phase I Handoff Method Bedside/Face to face, Online nursing summary Post-op Transport Stretcher/Gurney Via Patient Transport Sukumar Casanova RN, Accompanied by SALMA MARROQUIN MD Last Modified By: Sukumar Casanova RN 11/28/18 10:25:50 [facility] IntraOp Departure from OR Audit 11/28/18 10:25:50 Log Processor Operator: FABIANAANOS Modifier: PANTANOS 1 <*> Patient Transport Accompanied by Sukumar Casanova RN [facility] IntraOp Fire Risk Assessment Entry 1 [...] Modified By: Sukumar Casanova RN 11/28/18 10:15:58 [facility] IntraOp General Case Boiler House Operator 1 Case Information OR OR [facility] Case Level 1 Room Verified Yes Wound Class II - Clean-Contaminated Specialty SN Gastroenterology Anesthesia Type General ASA Class 4E Diagnosis Preop Diagnosis GASTRIC BLEED Postop Same As Preop Yes Postop Diagnosis GASTRIC BLEED Last Modified By: Sukumar Casanova RN 11/28/18 10:18:38 [facility] IntraOp General Case Data Audit 11/28/18 10:18:38 Log Processor Operator: WILL Modifier: PANTANOS <+> 1 Postop Same As Preop <+> 1 Preop Diagnosis <+> 1 Postop Diagnosis [facility] IntraOp Intraoperative Assessment Entry 1 Handoff [...] Modified By: Sukumar Casanova RN 11/28/18 10:21:06 [facility] IntraOp Intraoperative Equipment Entry 1 Type Monitoring Equipment Intraop Monitoring Electrocardiogram Three lead placement (ECG) Electrode Placement Blood Pressure Non-Invasive BP Device Source Blood Pressure Arm, right upper Location Pulse Oximeter Hand, left Probe Site Antiembolic Devices Scopes Photo/Video Documentation Last Modified By: Sukumar Casanova RN 11/28/18 10:21:34 [facility] IntraOp Patient Positioning Entry 1 Procedure [...] Modified By: Sukumar Casanova RN 11/28/18 10:20:33 [facility] IntraOp Sign In Entry 1 Patient, [...] Modified By: Sukumar Casanova RN 11/28/18 10:22:31 [facility] IntraOp Sign Out Entry 1 RN [...] related to extraneous objects Last Modified By: Sukumar Casanova RN 11/28/18 11:00:01 [facility] IntraOp Sign Out Audit 11/28/18 11:00:01 Log Processor Operator: WILL Modifier: WILL <+> 1 RN Sign Out Signature Date/Time [facility] IntraOp Surgical Procedures Entry 1 Procedure Esophagogastroduodenosco py Additional (EGD WITH CONTROL OF Procedure BLEEDING) Description Primary Procedure Yes Primary Surgeon SAMAN BERNSTEIN MD-TAO Start 11/28/18 10:19:00 Stop 11/28/18 10:33:00 Anesthesia Type General Specialty SN Gastroenterology Wound Class II - Clean-Contaminated Last Modified By: Sukumar Casanova RN 11/28/18 10:59:52 [facility] IntraOp Surgical Procedures Audit 11/28/18 10:59:52 Log Processor Operator: WILL Modifier: WILL 1 <*> Procedure Esophagogastroduodenoscopy 1 <+> Specialty 11/28/18 10:59:43 Log Processor Operator: WILL Modifier: WILL <+> 1 Start <+> 1 Stop [facility] IntraOp Temp Regulation Devices Entry 1 Temp Regulation Temperature Warm blankets Regulation Device Temperature Full body Regulation Site Last Modified By: Sukumar Casanova RN 11/28/18 10:26:13 [facility] IntraOP Time Out Entry 1 Procedure [...] Modified By: Sukumar Casanova RN 11/28/18 10:21:53 [facility] IntraOP Time Out Audit 11/28/18 10:21:53 Log Processor Operator: WILL Modifier: WILL 1 <+> Time Out Pause Time 1 <*> Procedure to be Performed Esophagogastroduodenoscopy Case Comments <None> Finalized By: JODI PITT Document Signatures Signed By: Sukumar Casanova RN 11/28/18 11:00 JODI PITT 11/30/18 09:14 Unfinalized History Date/Time Username Reason for Unfinalizing Freetext Reason for Unfinalizing 11/30/18 09:13 [email or web address] Correct Billing Electronically signed by Parveen [facility] Conversion Spindle Tester Cerner at 12/08/2022 12:19 PM CDT documented in this encounter Plan of Treatment Not on file documented as of this encounter Visit Diagnoses Not on filedocumented in this encounter
--- OUTSIDE RECORDS SUMMARY | 2025-03-02 15:31 | XMS_ITS | Encounter Summary ---
Author Organization [employer] ([place], [place], [place], [place]) Address [address] [place] [address] Care Team Providers Care Brass Plater Name Role Phone Unavailable Primary Care Provider Unavailabl e Encounter Details Date Type Department Care Team (Late st Contact Info) Description 11/16/2018 Transcribed Document [facility] [place] Family Medicine [address] [place] [address] ProviderErika MD [address] [id number] Social History Tobacco Use Types Packs/Day Years [...] All Problems Prostate stricture / SNOMED CT 11724967 / Confirmed Restless legs syndrome / SNOMED CT 93127324 / Confirmed Nocturia / SNOMED CT 761306475 / Confirmed Cancer of skin of face / SNOMED CT 4311885274 / Confirmed Frequent urination / SNOMED CT 041146006 / Confirmed Hypothyroidism / SNOMED CT 37915459 / Confirmed HTN - Hypertension / SNOMED CT 7829271538 / Confirmed Disorder of prostate ( enlarged) / SNOMED CT 77839660 / Confirmed CAD (coronary artery disease) / SNOMED CT 60505891 / Confirmed At risk for sleep apnea / IMO 52353790 / Confirmed Arthritis / SNOMED CT 4044854 / Confirmed Aortic valve insufficiency / SNOMED CT 414206317 / Confirmed Aneurysm, thoracic aortic / SNOMED CT 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 [...] EDT Height Source Measured Height Entry Format Cannon Height/Length, SWEDISH (ft) 6 ft Height/Length SWEDISH 1 Inch CLINICALHEIGHT 185.42 cm Ernul Body Weight 79 kg Weight Source Standing scale Weight Entry Format Cannon Weight Dominican lb 174 lb Weight Dominican oz 5 oz CLINICALWEIGHT 79.23 kg Body [...] of motion, Normal strength. Integumentary: Warm, Dry, [place]. Neurologic: Alert, Oriented. Psychiatric: Cooperative, Appropriate mood [...] % 32.4 % Lymph # 2.32 x10(3)/uL Blanco % 9.5 % HI Blanco # 0.68 K/uL Eos % 1.1 % [...] Color Yellow Urine Appearance Clear Urine Specific [place] 1.016 Urine pH Dipstick 6.5 Urine Leukocyte [...]
--- OUTSIDE RECORDS SUMMARY | 2025-03-02 15:31 | XMS_ITS | Encounter Summary ---
Author Organization [employer] ([place], [place], [place], [place]) Address [address] [place] [address] Care Team Providers Care [place] Program Coordinator Name Role Phone Unavailable Primary Care Provider Unavailabl e Encounter Details Date Type Department Care Team (Late st Contact Info) Description 11/16/2018 Transcribed Document [facility] [place] [facility] [address] [place] [address] ProviderErika MD [address] [place] [address] Social History Tobacco Use Types Packs/Day Years Used Date Smoking Tobacco: Never Assessed Sex and Gender Information Value Date Recorded Sex Assigned at Not on file Legal Sex Male 5:03 PM CDT Gender Identity Not on file Sexual Orientation Not on file documented as of this encounter Miscellaneous Notes * Cerner Conversion Note - Erika ProviderMD - 11/16/2018 8:20 AM CDT [facility] Main OR IntraOp Summary Primary Physician: JULIO CESAR CARVALHO MD-CAT Finalized Date/Time: 11/17/18 10:03:54 Pt. Name: DOTTIE VILLASENOR D.O.B./Sex: 1940 Male Med Rec #: [id number] Physician: JULIO CESAR CARVALHO MD-CAT Financial #: [id number] Pt. Type: I Room/Bed: [facility] Admit/Disch: 11/16/18 06:45:00 - Institution: [facility] IntraOp Case Attendance Entry 1 Entry 2 Entry 3 Case Attendee JULIO CESAR CARVALHO MD-CAT ALTIZER, LISA E, RN Alton Gamble, electrologist Role Performed Surgeon/Proceduralist, Paint Mixer Machine, First Special Education Math Teacher First Time In 11/16/18 07:06:00 11/16/18 07:06:00 [...] CAROLYN, RN Role Performed Scrub, First Anesthesiologist Paint Mixer Machine, Second Time In 11/16/18 07:06:00 11/16/18 07:06:00 [...] [place] Pref Card Builder Role Performed Physician application assistant Physician application assistant Paint Mixer Machine, Second Time In 11/16/18 07:06:00 11/16/18 09:00:00 [...] Attendee Colette Alexander, LISETH Dimas, Alton Gamble, electrologist Pref Card Builder Special Education Math Teacher Role Performed Scrub, First Special Education Math Teacher Special Education Math Teacher Time In 11/16/18 10:32:00 11/16/18 11:05:00 11/16/18 [...] 12:25:17 Entry 13 Case Attendee LISETH ROE, Special Education Math Teacher Role Performed Special Education Math Teacher Time In 11/16/18 12:13:00 Time Out 11/16/18 12:30:00 Procedure Aortic Aneurysm Ascending Repair, CABG w Aortic Valve, Transesophageal Echocardiogram Other Attendee Superficial Wound Closed By: Last Modified By: RADHA VALENCIA, TONJA 11/16/18 12:40:56 [facility] IntraOp Case Attendance Audit 11/16/18 12:40:56 Adult Education Teacher: ALTIZEL Modifier: ALTIZEL 1 <+> Time Out [...] w Aortic Valve, Transesophageal Echocardiogram 11/16/18 12:25:17 Adult Education Teacher: ALTIZEL Modifier: ALTIZEL 12 <+> Time Out 12 <*> Procedure Aortic Aneurysm Ascending Repair, CABG w Aortic Valve <+> 13 Case Attendee <+> 13 Role Performed <+> 13 Time In <+> 13 Procedure 11/16/18 11:17:39 Adult Education Teacher: ALTIZEL Modifier: ALTIZEL <+> 12 Case Attendee <+> 12 Role Performed <+> 12 Time In <+> 12 Procedure 11/16/18 11:17:17 Adult Education Teacher: ALTIZEL Modifier: ALTIZEL 3 <+> Time Out 3 <*> Procedure Transesophageal Echocardiogram <+> 11 Case Attendee <+> 11 Role Performed <+> 11 Time In <+> 11 Time Out <+> 11 Procedure <+> 11 Other Attendee 11/16/18 10:47:10 Adult Education Teacher: ALTIZEL Modifier: ALTIZEL <+> 10 Case Attendee <+> 10 Role Performed <+> 10 Time In <+> 10 Time Out <+> 10 Procedure <+> 10 Other Attendee 11/16/18 09:58:31 Adult Education Teacher: ALTIZEL Modifier: ALTIZEL <+> 1 Procedure <+> 2 Procedure <+> 3 Procedure <+> 4 Procedure <+> 5 Procedure <+> 6 Procedure 7 <*> Procedure Aortic Aneurysm Ascending Repair, CABG w Aortic Valve 8 <*> Procedure Aortic Aneurysm Ascending Repair, CABG w Aortic Valve 9 <*> Procedure Aortic Aneurysm Ascending Repair, CABG w Aortic Valve 11/16/18 09:50:06 Adult Education Teacher: ALTIZEL Modifier: ALTIZEL 9 <+> Time Out 9 <*> Procedure Aortic Aneurysm Ascending Repair, CABG w Aortic Valve 11/16/18 09:39:14 Adult Education Teacher: ALTIZEL Modifier: ALTIZEL <+> 9 Case Attendee <+> 9 Role Performed <+> 9 Time In <+> 9 Procedure <+> 9 Other Attendee 11/16/18 09:28:12 Adult Education Teacher: ALTIZEL Modifier: ALTIZEL <+> 8 Case Attendee <+> 8 Role Performed <+> 8 Time In <+> 8 Procedure 11/16/18 08:24:20 Adult Education Teacher: ALTIZEL Modifier: ALTIZEL 7 <+> Time Out 7 <*> Procedure Aortic Aneurysm Ascending Repair, CABG w Aortic Valve 11/16/18 08:21:45 Adult Education Teacher: ALTIZEL Modifier: ALTIZEL <+> 6 Time Out 11/16/18 08:10:59 Adult Education Teacher: ALTIZEL Modifier: ALTIZEL 6 <*> Time In 11/16/18 07:00:00 <+> 7 Case Attendee <+> 7 Role Performed <+> 7 Time In <+> 7 Procedure 11/16/18 07:19:51 Adult Education Teacher: ALTIZEL Modifier: ALTIZEL <+> 2 Time In <+> 3 Time In <+> 4 Time In <+> 5 Time In 11/16/18 07:19:37 Adult Education Teacher: ALTIZEL Modifier: ALTIZEL <+> 1 Time In <+> 2 Case Attendee <+> 2 Role Performed <+> 3 Case Attendee <+> 3 Role Performed <+> 4 Case Attendee <+> 4 Role Performed <+> 5 Case Attendee <+> 5 Role Performed <+> 6 Case Attendee <+> 6 Role Performed <+> 6 Time In [facility] IntraOp Case Times Entry 1 Patient In Room Time 11/16/18 07:06:00 Out Room Time 11/16/18 12:30:00 Anesthesia Start Time 11/16/18 07:06:00 Stop Time 11/16/18 12:30:00 Anesthesia Ready 11/16/18 07:06:00 Surgery / Procedure Times Start Time 11/16/18 08:20:00 Stop Time 11/16/18 12:22:00 Last Modified By: RADHA VALENCIA RN 11/16/18 07:17:32 [facility] IntraOp Case Times Audit 11/16/18 12:30:30 Adult Education Teacher: ALTIZEL Modifier: ALTIZEL <+> 1 Out Room Time <+> 1 Stop Time <+> 1 Stop Time 11/16/18 08:21:57 Adult Education Teacher: ALTIZEL Modifier: ALTIZEL <+> 1 Start Time [facility] IntraOp Cautery Entry 1 ESU Identification Cautery Type Monopolar ESU ID Number [id number] ID Type Hospital Number Cautery Settings Cut [...] Modified By: RADHA VALENCIA RN 11/16/18 08:42:12 [facility] IntraOp Communication Entry 1 Entry 2 [...] RN 11/16/18 11:53:58 11/16/18 12:13:00 11/16/18 12:13:00 [facility] IntraOp Communication Audit 11/16/18 12:13:00 Adult Education Teacher: ALTIZEL Modifier: ALTIZEL <+> 8 Communication By <+> 8 Date and Time <+> 8 Communication To <+> 9 Communication By <+> 9 Date and Time <+> 9 Communication To <+> 9 Comment 11/16/18 11:53:58 Adult Education Teacher: ALTIZEL Modifier: ALTIZEL <+> 7 Communication By <+> 7 Date and Time <+> 7 Communication To <+> 7 Comment 11/16/18 11:31:42 Adult Education Teacher: ALTIZEL Modifier: ALTIZEL <+> 6 Communication By <+> 6 Date and Time <+> 6 Communication To 11/16/18 10:22:56 Adult Education Teacher: ALTIZEL Modifier: ALTIZEL <+> 5 Communication By <+> 5 Date and Time <+> 5 Communication To 11/16/18 09:10:41 Adult Education Teacher: ALTIZEL Modifier: ALTIZEL <+> 3 Communication By <+> 3 Date and Time <+> 3 Communication To <+> 4 Communication By <+> 4 Date and Time <+> 4 Communication To <+> 4 Comment [facility] IntraOp Counts Verification Entry 1 Entry [...] LISA E, RN 11/16/18 07:20:29 11/16/18 11:54:29 [facility] IntraOp Counts Verification Audit 11/16/18 11:54:29 Adult Education Teacher: ALTIZEL Modifier: ALTIZEL <+> 2 Procedure <+> 2 Count Type <+> 2 Counts Verification Sequence <+> 2 Count Results <+> 2 Count Performed By (Scrub) <+> 2 Count Performed By (RN) 11/16/18 09:58:33 Adult Education Teacher: ALTIZEL Modifier: ALTIZEL 1 <*> Procedure Aortic Aneurysm Ascending Repair, CABG w Aortic Valve [facility] IntraOp Counts Final Entry 1 Procedure Aortic Aneurysm Ascending Repair, CABG w Aortic Valve, Transesophageal Echocardiogram Final Count Info Count Type Sponge, Sharps, Instrument, Miscellaneous Counts Verification Skin Closure/end of Sequence procedure Count Results Correct, surgeon notified Counts Performed By Count Performed By MELODY MASON (Scrub) Count Performed By RADHA VALENCIA RN (RN) Last Modified By: RADHA VALENCIA RN 11/16/18 12:01:46 [facility] IntraOp Cultures and Spec Summary Entry 1 Cultrures and Specimens Specimen Ordered: Yes Specimens Types Pathology Specimen(s) Labeled Pathology and Sent to Last Modified By: RADHA VALENCIA RN 11/16/18 09:22:38 [facility] IntraOp Departure from OR Entry 1 Integumentary Assessment Integumentary WDL Assessment WDL Transfer/Handoff Transfer to ICU - Cardiovascular Post-op Transport Bed (including Via specialty) Patient Transport SHERRY NICHOLS, Accompanied by Tye KHAN Tom, electrologist Last Modified By: RADHA VALENCIA RN 11/16/18 08:42:33 [facility] IntraOp Drains and Tubes Entry 1 [...] LISA E, RN 11/16/18 08:42:54 11/16/18 08:42:54 [facility] IntraOp Dressing and Packing Entry 1 Entry 2 Type Dressing Dressing Location Mediastinum Mediastinum Wound Dressing Item 4x4's, Skin Closure Glue 4x4's Wound Packing Type Tape Type Supplemental Applications Applied By Other Comments Soft cloth paper tape Soft cloth paper tape Last Modified By: RADHA VALENCIA RN ALTIZER, LISA E, RN 11/16/18 08:43:06 11/16/18 08:53:50 [facility] IntraOp Dressing and Packing Audit 11/16/18 08:53:50 Adult Education Teacher: SAIGEIZEL Modifier: ALTIZEL <+> 2 Type <+> 2 Location <+> 2 Wound Dressing Item <+> 2 Other Comments [facility] IntraOp Fire Risk Assessment Entry 1 [...] Yes Safety Precautions Followed Last Modified By: RAHDA VALENCIA RN 11/16/18 07:20:01 [facility] IntraOp Fire Risk Assessment Audit 11/16/18 08:43:21 Adult Education Teacher: SAIGEIZEL Modifier: ALTIZEL 1 <*> Fire Risk Assessment Verified 11/16/18 07:19:00 Date/Time [facility] IntraOp General Case Continuous Miner 1 Case Information OR OR 14 [facility] Case Level 2 Room Verified Yes Wound Class I - Clean Specialty SN Cardio Thoracic Anesthesia Type General ASA Class 4 Diagnosis Preop Diagnosis CAD, AORTIC VALVE DISEASE, ASCENDING AORTIC ANEURSYM Postop Diagnosis SEE MD POST OP NOTE Last Modified By: RADHA VALENCIA RN 11/16/18 08:50:46 [facility] IntraOp Implant Log Entry 1 Entry 2 Type Implant (Synthetic) Tissue Implant (Biologic) Implant Log Implant Type Grafts, non-biological Tissue Implant Type Heart valve Implant [facility] PLAT VALVE AORT ROOT Identification [id number] [id number] Description Implant Quantity 1 1 Implant Site AORTA AORTA Implant Identification Model Number Implant [id number] Identification Serial Number Implant Identification Lot Number Implant Michel Ind:Maquet:Cv Medtronic:Card Surg:Tech Identification Kitchen And Bath Designer Name: Implant [id number] Identification Catalog Number Implant Size Implant Has an Yes Yes Expiration Date Implant Expiration 08/23/23 05/20/22 Date Wasted Radioactive Material Time Implanted Tissue Implant Continue for Tissue Implant Documentation Tissue Identification Number Graft Prep Per Yes Kitchen And Bath Designer Instructions: Tissue Preparation N/A Method: Reconstitution Solution: Reconstitution Solution Lot Number Reconstitution Solution Expiration Date: Thawing Solution Thawing Solution Lot Number Thawing Solution Expiration Date Preparation NACL Materials, Other Preparation [id number] Materials, Other Lot Number Preparation 06/22/22 Materials, Other Expiration Date Tissue MARLON, MELODY Prepared/Processed By Kitchen And Bath Designer Yes Paperwork Completed Implant Type Comment Last Modified By: RADHA VALENCIA RN ALTIZER, LISA E, RN 11/16/18 09:42:38 11/16/18 09:42:38 [facility] IntraOp Intraoperative Assessment Entry 1 Handoff [...] Modified By: RADHA VALENCIA RN 11/16/18 08:25:54 [facility] IntraOp Intraoperative Equipment Entry 1 Equipment Intraop Monitoring Blood Pressure Non-Invasive BP Device Source Blood Pressure Arm, right upper Location Pulse Oximeter Hand, left Probe Site Antiembolic Devices Scopes Photo/Video Documentation Last Modified By: RADHA VALENCIA RN 11/16/18 08:51:22 [facility] IntraOp Medication Admin Entry 1 Entry 2 Entry 3 Medication/Irrigant papverine HCL 30mg/ml lidocaine 1% 50ml vial NS 0.9% 50ml injection 10ml - [id number] - [id number] - [id number] Combo Med List Time Administered Route of FLUSH MAMMARY LOCAL FLUSH Administration Dose Dose 150 8 30 Unit of Measure mg ml ml Volume Administered By JULIO CESAR CARVALHO MD-[facility] PA MEECE, PAUL, PA Procedure Irrigation Irrigant Volume In Irrigant Volume Out Last Modified By: RADHA VALENCIA RN ALTIZER, LISA E, RN ALTIZER, LISA E, RN 11/16/18 08:52:11 11/16/18 11:07:14 11/16/18 08:52:11 Entry 4 Entry 5 Medication/Irrigant Ancef 1Gm advantage KT TISSEEL VH SD vial - [id number] Combo Med List Time Administered Route of IRRIGATION TOPICAL Administration Dose Dose 1 10 Unit of Measure gram ml Volume Administered By JULIO CESAR CARVALHO MD-CAT JULIO CESAR CARVALHO MD-CAT Procedure Irrigation Irrigant Volume In Irrigant Volume Out Last Modified By: RADHA VALENCIA RN ALTIZER, LISA E, RN 11/16/18 08:52:11 11/16/18 09:49:07 [facility] IntraOp Medication Admin Audit 11/16/18 11:07:14 Adult Education Teacher: ALTIZEL Modifier: ALTIZEL 2 <*> Medication/Irrigant lidocaine 1% 50ml vial - [id number] 2 <*> Administered By ALLA SORIANO RN 11/16/18 09:49:07 Adult Education Teacher: ALTIZEL Modifier: ALTIZEL <+> 5 Medication/Irrigant <+> 5 Route of Administration <+> 5 Administered By <+> 5 Dose <+> 5 Unit of Measure [facility] IntraOp Patient Positioning Entry 1 Procedure [...] Modified By: RADHA VALENCIA RN 11/16/18 08:49:03 [facility] IntraOp Patient Positioning Audit 11/16/18 09:58:34 Adult Education Teacher: ALTIZEL Modifier: ALTIZEL 1 <*> Procedure Aortic Aneurysm Ascending Repair, CABG w Aortic Valve [facility] IntraOp Sign In Entry 1 Patient, [...] Modified By: RADHA VALENCIA RN 11/16/18 07:19:47 [facility] IntraOp Sign Out Entry 1 RN [...] Modified By: RADHA VALENCIA RN 11/16/18 12:41:17 [facility] IntraOp Skin Prep Entry 1 Procedure Transesophageal Echocardiogram Prescribed Yes Pre-Surgical Prep Completed Prep Area Chin to TOES Intraop Prep Integumentary WDL Assessment WDL Patients Normal WDL Integumentary Variance(s) Prep Agents Chloraprep Prep by RADHA VALENCIA RN Skin Prep Comment Xander Soriano also prepped Hair Removal Last Modified By: RADHA VALENCIA RN 11/16/18 08:52:45 [facility] IntraOp Skin Prep Audit 11/16/18 09:58:34 Adult Education Teacher: ALTIZEL Modifier: ALTIZEL <+> 1 Procedure [facility] IntraOp Surgical Procedures Entry 1 Entry [...] RN 11/16/18 09:57:36 11/16/18 08:49:06 11/16/18 09:58:24 [facility] IntraOp Surgical Procedures Audit 11/16/18 12:41:26 Adult Education Teacher: ALTIZEL Modifier: ALTIZEL <+> 1 Stop <+> 2 Stop <+> 3 Stop 11/16/18 10:51:43 Adult Education Teacher: ALTIZEL Modifier: ALTIZEL 1 <*> Procedure Aortic Aneurysm Ascending Repair 11/16/18 10:17:14 Adult Education Teacher: ALTIZEL Modifier: ALTIZEL <+> 3 Start 11/16/18 09:58:24 Adult Education Teacher: ALTIZEL Modifier: ALTIZEL <+> 3 Procedure <+> 3 Primary Procedure <+> 3 Primary Surgeon <+> 3 Specialty <+> 3 Wound Class <+> 3 Anesthesia Type 11/16/18 09:57:36 Adult Education Teacher: ALTIZEL Modifier: ALTIZEL 1 <*> Procedure Aortic Aneurysm Ascending Repair 1 <*> Additional Procedure Description (ASCENDING AORTIC ANEURYSM REPAIR, CABG, POSSIBLE AORTIC VALVE REPLACEMENT) [facility] IntraOp Temp Regulation Devices Entry 1 Entry 2 Temp Regulation Temperature Forced Air Warming Warm blankets Regulation Device device Temperature [id number] Regulation Device Serial/Unit Number Temperature Lower body Full body Regulation Site Temperature Device 43 DEG C Setting Temperature RADHA VALENCIA RN ALTIZER, LISA E, RN Regulation Device Applied by Temperature CATIA HUGGER TURNED ON Regulation Comment AFTER AORTIC CROSS CLAMP REMOVED Last Modified By: RADHA VALENCIA RN ALTIZER, LISA E, RN 11/16/18 08:53:25 11/16/18 08:53:25 [facility] IntraOP Time Out Entry 1 Procedure [...] Modified By: RADHA VALENCIA RN 11/16/18 09:58:34 [facility] IntraOP Time Out Audit 11/16/18 09:58:34 Adult Education Teacher: EARNESTINE Modifier: ALTIZEL 1 <*> Procedure to be Performed Aortic Aneurysm Ascending Repair, CABG w Aortic Valve Case Comments <None> Finalized By: JODI PITT Document Signatures Signed By: RADHA VALENCIA RN 11/16/18 12:41 JODI PITT 11/17/18 10:03 Unfinalized History Date/Time Username Reason for Unfinalizing Freetext Reason for Unfinalizing 11/17/18 09:59 [email or web address] Correct Billing Electronically signed by Parveen [facility] Conversion Building Maintenance Mechanic Cerner at 12/08/2022 12:09 PM CDT documented in this encounter Plan of Treatment Not on file documented as of this encounter Visit Diagnoses Not on filedocumented in this encounter
--- OUTSIDE RECORDS SUMMARY | 2025-03-02 15:31 | XMS_ITS | Encounter Summary ---
Author Organization [employer] ([place], [place], [place], [place]) Address [address] [place] [address] Care Team Providers Care Regional Sales Manager Name Role Phone Unavailable Primary Care Provider Unavailabl e Encounter Details Date Type Department Care Team (Late st Contact Info) Description 11/16/2018 Transcribed Document [facility] [place] [facility] [address] [place] [address] ProviderErika MD [address] [place] [address] Social History Tobacco Use Types Packs/Day Years Used Date Smoking Tobacco: Never Assessed Sex and Gender Information Value Date Recorded Sex Assigned at Not on file Legal Sex Male 5:03 PM CDT Gender Identity Not on file Sexual Orientation Not on file documented as of this encounter Miscellaneous Notes * Cerner Conversion Note - Erika ProviderMD - 11/16/2018 7:30 AM CDT [facility] Main OR Preop Summary Primary Physician: JULIO CESAR CARVALHO MD-CAT Finalized Date/Time: 11/16/18 07:12:04 Pt. Name: DOTTIE VILLASENOR D.O.B./Sex: 1940 Male Med Rec #: [id number] Physician: JULIO CESAR CARVALHO MD-CAT Financial #: [id number] Pt. Type: I Room/Bed: ASA/8 Admit/Disch: 11/16/18 06:45:00 - Institution: [facility] PreOp Case Times Entry 1 In Preop [...]
--- OUTSIDE RECORDS SUMMARY | 2025-03-02 15:31 | XMS_ITS | Encounter Summary ---
Author Organization [employer] ([place], [place], [place], [place]) Address [address] [place] [address] Care Team Providers Care Chief Executive Name Role Phone Unavailable Primary Care Provider Unavailabl e Encounter Details Date Type Department Care Team (Late st Contact Info) Description 11/24/2018 Transcribed Document [facility] [address] [place] [address] ProviderErika MD [address] [place] [address] Social History Tobacco Use Types [...] On: 11/24/2018 13:21 EDT by ODALYS FAULKNER Rn-Transportation Maintenance OperatorSquirt Machine Operator Note Care Management Note : 11/24/18 Andra from [facility] called to let me know they started a precert on this pt. CF Care Management Note Report : ODALYS FAULKNER Rn-Transportation Maintenance Operator - 11/22/18 13:56:32 11/22/18 Pt has had a cva. Spoke to his Connie and son Sumeet at the bedside. Pt is lfacid on the left side. Discussed the need for STR and they decided on [facility]. Sent pt info via [employer] to [facility]. CF Documentation Status Complete : Yes ODALYS FAULKNER Rn-Transportation Maintenance Operator - 11/24/2018 13:21 EDT Electronically signed by Parveen [facility] Conversion Mass Spectrometry Manager [employer] at 12/08/2022 12:31 PM CDT documented in this encounter Plan of Treatment Not on file documented as of this encounter Visit Diagnoses Not on filedocumented in this encounter
--- OUTSIDE RECORDS SUMMARY | 2025-03-02 15:31 | XMS_ITS | Encounter Summary ---
Author Organization [employer] ([place], [place], [place], [place]) Address [address] [place] [address] Care Team Providers Care Arts Manager Name Role Phone Unavailable Primary Care Provider Unavailabl e Encounter Details Date Type Department Care Team (Late st Contact Info) Description 11/23/2018 Transcribed Document [facility] [place] [address] [place] [address] ProviderErika MD [address] [place] [address] Social History Tobacco Use Types Packs/Day Years Used Date Smoking Tobacco: Never Assessed Sex and Gender Information Value Date Recorded Sex Assigned at Not on file Legal Sex Male 5:03 PM CDT Gender Identity Not on file Sexual Orientation Not on file documented as of this encounter Miscellaneous Notes * Cerner Conversion Note - Historical ProviderMD - 11/23/2018 1:36 PM CDT Refractory Repairer Details Entered On: 11/23/2018 16:44 EDT Performed [...]
--- OUTSIDE RECORDS SUMMARY | 2025-03-02 15:31 | XMS_ITS | Encounter Summary ---
Author Organization [employer] ([place], [place], [place], [place]) Address [address] [place] [address] Care Team Providers Care Automatic Glove Turner And Former Name Role Phone Unavailable Primary Care Provider Unavailabl e Encounter Details Date Type Department Care Team (Late st Contact Info) Description 11/16/2018 Transcribed Document [facility] [address] [place] [address] ProviderErika MD [address] [place] [address] Social History Tobacco Use Types [...] On: 11/16/2018 12:27 EDT by Lorin Pratt[facility] Phone Call for Consults Consult Phone Call/Page Attempt : Other: Valve: no call Lorin Pratt [facility] - 11/16/2018 13:34 EDT Electronically signed by Christina Saini Conversion Residential Direct Support Professional Cerner at 12/08/2022 12:36 PM CDT documented in this encounter Plan of Treatment Not on file documented as of this encounter Visit Diagnoses Not on filedocumented in this encounter
--- OUTSIDE RECORDS SUMMARY | 2025-03-02 15:31 | XMS_ITS | Encounter Summary ---
Author Organization [employer] ([place], [place], [place], [place]) Address [address] [place] [address] Care Team Providers Care Office Clerk Routine Name Role Phone Unavailable Primary Care Provider Unavailabl e Encounter Details Date Type Department Care Team (Late st Contact Info) Description 12/01/2018 Transcribed Document [facility] Family Medicine [address] [place] [address] ProviderErika MD [address] [place] [address] Social History Tobacco Use Types [...] GISSEL ZHANG PA - 12/01/2018 11:54 EDT Electronically signed by Christina Saini Conversion Regulatory Compliance Specialist Cerner at 12/08/2022 12:11 PM CDT documented in this encounter Plan of Treatment Not on file documented as of this encounter Visit Diagnoses Not on filedocumented in this encounter
--- OUTSIDE RECORDS SUMMARY | 2025-03-02 15:31 | XMS_ITS | Encounter Summary ---
Author Organization [employer] ([place], [place], [place], [place]) Address [address] [place] [address] Care Team Providers Care Stone Paver Name Role Phone Unavailable Primary Care Provider Unavailabl e Encounter Details Date Type Department Care Team (Late st Contact Info) Description 11/16/2018 Transcribed Document [facility] [place] [address] [place] [address] ProviderErika MD [address] [place] [address] Social History Tobacco Use Types [...] Ambulatory Legal Guardian : Spouse Support Person/Patient Restaurant Assistant Manager : Yes Support Person/Pt Rep Name : Connie- Sumeet - son Support Person/Pt Rep Contact Information : [phone] home [phone] - cell Want Family/Rep/Phys Notified of Admit [...] : Patient, Medical Record Primary Language : Zambian Preferred Communication Mode : Verbal Communication Barrier [...] Scale Risk Level : 25-45 Medium Risk [place] Fall Interventions : Adequate lighting, Assistive devices [...] Source : Measured Height Entry Format : Ida Height, Feet : 6 ft(Converted to: 183 cm, 72 Inch) Height, Inches : 1 Inch(Converted to: 0 ft 1 Inch, 2.54 cm) Clinical Height : 185.42 cm Weight Source : Standing scale Weight Entry Format : Ida Clinical Dosing Weight : 79.23 kg Weight, Pounds : 174 lb Weight, Ounces : 5 oz Body Surface Area (BSA) : 2.03 m2 Body Mass Index : 23 kg/m2 [place] Body Weight : 79 kg FROY NEIL [...] FROY NEIL RN - 11/16/2018 13:37 EDT Electronically signed by Christina Saini Conversion Telecommunication Tower Technician Cerner at 12/08/2022 12:19 PM CDT documented in this encounter Plan of Treatment Not on file documented as of this encounter Visit Diagnoses Not on filedocumented in this encounter
--- OUTSIDE RECORDS SUMMARY | 2025-03-02 15:31 | XMS_ITS | Encounter Summary ---
Author Organization [employer] ([place], [place], [place], [place]) Address [address] [place] [address] Care Team Providers Care Diving Instructor Name Role Phone Unavailable Primary Care Provider Unavailabl e Encounter Details Date Type Department Care Team (Late st Contact Info) Description 11/24/2018 Transcribed Document [facility] [place] Family Medicine [address] [place] [address] ProviderErika MD [address] [place] [address] Social History Tobacco Use Types [...] Bed scale Routine Weight Entry Format : [place] Routine Weight, Pounds : 180 lb Routine Weight, Ounces : 8 oz Routine Weight Calculation : 82.05 kg Height Source : Measured Height Entry Format : [place] Height, Feet : 6 ft Height, Inches : 1 Inch Clinical Height : 185.42 cm Body Surface Area (BSA), Routine : 2.06 m2 Body Mass Index (BMI), Routine : 23.87 kg/m2 SHELDON MUELLER RN - 11/24/2018 3:36 EDT Electronically signed by Christina Saini Conversion Traveling Repair Accountant Cerner at 12/08/2022 12:39 PM CDT documented in this encounter Plan of Treatment Not on file documented as of this encounter Visit Diagnoses Not on filedocumented in this encounter
--- OUTSIDE RECORDS SUMMARY | 2025-03-02 15:31 | XMS_ITS | Encounter Summary ---
Author Organization [employer] ([place], [place], [place], [place]) Address [address] [place] [address] Care Team Providers Care Building Mover Name Role Phone Unavailable Primary Care Provider Unavailabl e Encounter Details Date Type Department Care Team (Late st Contact Info) Description 12/01/2018 Transcribed Document [facility] [place] Family Medicine [address] [place] [address] ProviderErika MD [address] [place] [address] Social History Tobacco Use Types [...] Jose MD - 12/01/2018 1:32 PM CDT [address] [address] Patient Copy Patient Information: Name: DOTTIE VILLASENOR Current Date: 12/01/2018 13:32:25 : 1940 Patient Address: [address] [place] [id number] Patient Attending Physician: JULIO CESAR CARVALHO MD-CAT Primary Care Provider: DEMETRICE ARMIJO NP-[facility] Primary Care Provider Discharge Diagnosis: Acute blood loss anemia; Aortic insufficiency; Coronary artery disease; GI bleed; LUE DVT (deep venous thrombosis); Right MCA CVA (cerebral vascular accident); Thoracic ascending aortic aneurysm Weight on Admission: 174 lb, 5 oz Weight at Discharge: 159 lb Comment: Follow-up Instructions: With: Address: When: DEMETRICE ARMIJO [address] [place], [place] [id number] Within 1 week Comments: When you are discharged from [facility] please call to make a 1 week hospital follow-up appointment. With: Address: When: JULIO CESAR DEY [address] SE[place] [address] Business (1) 1:15 PM With: Address: When: JULIO CESAR CARVALHO [address] [place] [address] Business (1) Within 2 weeks With: Address: When: JOHN BOWEN [address], [address] [place] [address] Business (1) Within 6 weeks Comments: Patient should call for a follow up appointment with [facility] Neurology. Discharge Instructions: Driving after Discharge: Do not drive, Other: No driving or operating heavy machinery until released by a physician. Community Services: Outpt Cardiac [facility] [phone] They will call pt w/ appt time. [...] 09/17/2005 Document Revised: 01/15/2017 Document Reviewed: 02/10/2014 [employer] Interactive Patient Education ? 2017 [employer] CIGARETTE SMOKING: The facts are clear, cigarette smoking will shorten your life. Smoking can cause many illnesses along the way. As a healthcare provider, we recommend that you stop smoking. Assistance with quitting is available by contacting 2-348-UBHE-NOW. This is a free resource providing counseling, [...] Be sure to sign up for the [employer] [facility] patient portal, which gives you 16/03 access to your medical information ??? including these discharge instructions ??? using your computer, smartphone, or tablet. Just go to [employer] to get started. Questions? Call . [facility] would like to thank you for allowing us to assist you with your healthcare needs. HAMILTON Jarvis ROBERT H, (or accounts receivable representative) have received the above patient education materials/instructions and have verbalized understanding: Patient Signature _ Date/Time Patient Laundry Assistant Signature (if needed) Date/Time Clinician/Hospital Laundry Assistant Signature (if needed) Date/Time documented in this encounter Plan of Treatment Not on file documented as of this encounter Visit Diagnoses Not on filedocumented in this encounter
--- OUTSIDE RECORDS SUMMARY | 2025-03-02 15:31 | XMS_ITS | Encounter Summary ---
Author Organization [employer] ([place], [place], [place], [place]) Address [address] [place] [address] Care Team Providers Care Shrink Pit Operator Name Role Phone Unavailable Primary Care Provider Unavailabl e Encounter Details Date Type Department Care Team (Late st Contact Info) Description 11/23/2018 Transcribed Document [facility] [place] [address] [place] [address] ProviderErika MD [address] [place] [address] Social History Tobacco Use Types [...]
--- OUTSIDE RECORDS SUMMARY | 2025-03-02 15:31 | XMS_ITS | Encounter Summary ---
Author Organization [employer] ([place], [place], [place], [place]) Address [address] [place] [address] Care Team Providers Care Preparation Center Coordinator Name Role Phone Unavailable Primary Care Provider Unavailabl e Encounter Details Date Type Department Care Team (Late st Contact Info) Description 12/01/2018 Transcribed Document [facility] [place] [address] [place] [address] ProviderErika MD [address] [place] [address] Social History Tobacco Use Types [...] Jose MD - 12/01/2018 1:54 PM CDT [facility] [place] [address] DOTTIE VILLASENOR :1940 Visit Time:11/16/2018 Your Visit Summary Your Care Team Admitting Physician - JULIO CESAR CARVALHO MD-CAT Attending Physician - JULIO CESAR CARVALHO MD-YADIRA Primary Care Physician - DEMETRICE ARMIJO NP-FAM Referring Physician - DEMETRICE ARMIJO NP-FAM Your Diagnosis Acute blood loss anemia Aortic insufficiency, Aortic insufficiency CAD (coronary artery disease), [place] coronary artery, Coronary artery disease GI bleed [...] Your Care Team [facility]-Stroke [facility] RN report #[phone] [place] Summary #[phone] You may shower. Make sure your back [...] IF you have a fever greater than [id number], call the surgeon. DO NOT drive for [...] Where: [address] [place] [address]- Business (1) Follow Up with JULIO CESAR CARVALHO When 12/15/2018 12:15 PM EDT Where: [address] [place] [address] Business (1) Follow Up with DEMETRICE ARMIJO When Within 1 week Comments When you are discharged from [facility] please call to make a 1 week hospital follow-up appointment. Where: [address] [place] [address]- Follow Up with JOHN BOWEN When Within 6 weeks Comments Patient should call for a follow up appointment with [facility] Neurology. Where: [address] [place] [address]- Business (1) Medications What How [...] contain harmful chemicals. FOR MORE INFORMATION ??? [place] [employer]: www.lung.org ??? [place] [employer]: www.cancer.org This information is not intended to replace advice given to you by your health care provider. Make sure you discuss any questions you have with your health care provider. Document Released: 09/17/2005 Document Revised: 12/01/2016 Document Reviewed: 01/30/2014 [employer] Interactive Patient Education ?? 2017 [employer] How to Take Your Blood Pressure [...] 07/23/2009 Document Revised: 08/31/2015 Document Reviewed: 10/05/2014 [employer] Patient Education ?? 2017 [employer] How to Take a Pulse Your [...] 02/14/2004 Document Revised: 02/27/2017 Document Reviewed: 01/13/2017 [employer] Patient Education ?? 2017 [employer] Coronary Artery Bypass Grafting, Care After [...] 02/27/2006 Document Revised: 08/31/2015 Document Reviewed: 01/17/2014 [employer] Patient Education ?? 2017 [employer] Bleeding Precautions When on Anticoagulant Therapy [...] can be dangerous for you. ??? Many yogu-shb-iawilwc medicines for pain, colds, or stomach problems [...] provider. Document Released: 07/21/2016 Document Reviewed: 07/21/2016 [employer] Patient Education ?? 2017 [employer]. Atrial Fibrillation Introduction Atrial fibrillation is a [...] Follow these instructions at home: ??? Take meqz-fgg-qfpilxb and prescription medicines only as told by [...] 09/17/2005 Document Revised: 01/15/2017 Document Reviewed: 02/10/2014 [employer] Patient Education ?? 2017 [employer]. misoprostol (reji ramos) [facility] What is the most important information [...] may report side effects to FDA at 7-338-MLX-6472. What other drugs will affect misoprostol? Other drugs may interact with misoprostol, including prescription and gyop-lbl-zgjiclb medicines, vitamins, and herbal products. Tell each [...] to ensure that the information provided by [employer]. ('[employer]') is accurate, up-to-date, and complete, but no guarantee is made to that effect. Drug information contained herein may be time sensitive. [employer] information has been compiled for use by healthcare practitioners and consumers in the [place] and therefore [employer] does not warrant that uses outside of the [place] are appropriate, unless specifically indicated otherwise. [employer] drug information does not endorse drugs, diagnose patients or recommend therapy. [employer] drug information is an informational resource designed [...] effective or appropriate for any given patient. [employer] does not assume any responsibility for any aspect of healthcare administered with the aid of information [employer] provides. The information contained herein is not intended to cover all possible uses, directions, precautions, warnings, drug interactions, allergic reactions, or adverse effects. If you have questions about the drugs you are taking, check with your doctor, nurse or pharmacist. Copyright 5745-8383 [employer]. Version: 8.01. Revision Date: 03/02/2014.sucralfate (oral) (angelica [...] may report side effects to FDA at 0-471-PHR-1529. What other drugs will affect sucralfate? Sucralfate can make it harder for your body to absorb other medications you take by mouth. Avoid taking any other medications within 2 hours before or after you take sucralfate. Other drugs may interact with sucralfate, including prescription and tixm-rck-mcumfop medicines, vitamins, and herbal products. Tell each [...] to ensure that the information provided by [employer]. ('[employer]') is accurate, up-to-date, and complete, but no guarantee is made to that effect. Drug information contained herein may be time sensitive. [employer] information has been compiled for use by healthcare practitioners and consumers in the [place] and therefore [employer] does not warrant that uses outside of the [place] are appropriate, unless specifically indicated otherwise. [employer] drug information does not endorse drugs, diagnose patients or recommend therapy. [employer] drug information is an informational resource designed [...] effective or appropriate for any given patient. [employer] does not assume any responsibility for any aspect of healthcare administered with the aid of information [employer] provides. The information contained herein is not intended to cover all possible uses, directions, precautions, warnings, drug interactions, allergic reactions, or adverse effects. If you have questions about the drugs you are taking, check with your doctor, nurse or pharmacist. Copyright 5236-7806 [employer]. Version: 8.01. Revision Date: 01/03/2013.sucralfate (oral) (angelica [...] may report side effects to FDA at 0-020-XWR-8502. What other drugs will affect sucralfate? Sucralfate can make it harder for your body to absorb other medications you take by mouth. Avoid taking any other medications within 2 hours before or after you take sucralfate. Other drugs may interact with sucralfate, including prescription and ghai-swp-ukcpxfj medicines, vitamins, and herbal products. Tell each [...] to ensure that the information provided by [employer]. ('[employer]') is accurate, up-to-date, and complete, but no guarantee is made to that effect. Drug information contained herein may be time sensitive. [employer]Say information has been compiled for use by healthcare practitioners and consumers in the [place] and therefore [employer] does not warrant that uses outside of the [place] are appropriate, unless specifically indicated otherwise. [employer] drug information does not endorse drugs, diagnose patients or recommend therapy. [employer] drug information is an informational resource designed [...] effective or appropriate for any given patient. [employer] does not assume any responsibility for any aspect of healthcare administered with the aid of information [facility] provides. The information contained herein is not intended to cover all possible uses, directions, precautions, warnings, drug interactions, allergic reactions, or adverse effects. If you have questions about the drugs you are taking, check with your doctor, nurse or pharmacist. Copyright 1562-1798 [employer]. Version: 8.01. Revision Date: 01/03/2013. Emergency Awareness [...] Assistance with quitting is available by contacting 7-530-PUPOGameologyNOW. This is a free resource providing counseling, [...]
--- OUTSIDE RECORDS SUMMARY | 2025-03-02 15:31 | XMS_ITS | Encounter Summary ---
Author Organization [employer] ([place], [place], [place], [place]) Address [address] [place] [address] Care Team Providers Care Senior Loan Processor Name Role Phone Unavailable Primary Care Provider Unavailabl e Encounter Details Date Type Department Care Team (Late st Contact Info) Description 11/16/2018 Transcribed Document [facility] [place] [address] [place] [address] ProviderErika MD [address], [place] [id number] Social History Tobacco Use Types Packs/Day Years [...] Medical. Performed by: JULIO CESAR CARVALHO MD-CAT. Field Producer: ERASMO LÓPEZ PA. Notes: Procedure: Resection and [...]
--- OUTSIDE RECORDS SUMMARY | 2025-03-02 15:31 | XMS_ITS | Encounter Summary ---
Author Organization [employer] ([place], [place], [place], [place]) Address [address] [place] [address] Care Team Providers Care Research Soil Scientist Name Role Phone Unavailable Primary Care Provider Unavailabl e Encounter Details Date Type Department Care Team (Late st Contact Info) Description 11/28/2018 Transcribed Document [facility] [place] [address] [place] [address] ProviderErika MD [address] [place] [address] Social History Tobacco Use Types [...] Admission Diagnosis : Atherosclerotic heart disease of [place] coronary artery without angina pectoris Atherosclerotic heart disease of [place] coronary artery without angina pectoris Cerebral infarction, [...] change in location/level of care Rapid Response Research Soil Scientist #1 : COREY MACHUCA, RN COREY MACHUCA, RN - 11/28/2018 4:37 EDT Electronically signed by Parveen [facility] [place] Conversion Rib Sawyer Cerner at 12/08/2022 12:39 PM CDT documented in this encounter Plan of Treatment Not on file documented as of this encounter Visit Diagnoses Not on filedocumented in this encounter
--- OUTSIDE RECORDS SUMMARY | 2025-03-02 15:31 | XMS_ITS | Encounter Summary ---
Author Organization [employer] ([place], [place], [place], [place]) Address [address] [place] [address] Care Team Providers Care Veneer Stock Grader Name Role Phone Unavailable Primary Care Provider Unavailabl e Encounter Details Date Type Department Care Team (Late st Contact Info) Description 11/16/2018 Transcribed Document [facility] [place] [address] [place] [address] ProviderErika MD [address] [place] [address] Social History Tobacco Use Types [...]
--- OUTSIDE RECORDS SUMMARY | 2025-03-02 15:31 | XMS_ITS | Encounter Summary ---
Author Organization [employer] ([place], [place], [place], [place]) Address [address] [place] [address] Care Team Providers Care Assistant Professor Of Nursing Name Role Phone Unavailable Primary Care Provider Unavailabl e Encounter Details Date Type Department Care Team (Late st Contact Info) Description 11/24/2018 Transcribed Document [facility] [place] Family Medicine [address] [place] [address] ProviderErika MD [address] [place] [address] Social History Tobacco Use [...]
--- OUTSIDE RECORDS SUMMARY | 2025-03-02 15:31 | XMS_ITS | Encounter Summary ---
Author Organization [employer] ([place], [place], [place], [place]) Address [address] [place] [address] Care Team Providers Care Radiological Engineer Name Role Phone Unavailable Primary Care Provider Unavailabl e Encounter Details Date Type Department Care Team (Late st Contact Info) Description 11/24/2018 Transcribed Document [facility] [place] [address] [place] [address] ProviderErika MD [address] [place] [address] Social History Tobacco Use Types [...]
--- OUTSIDE RECORDS SUMMARY | 2025-03-02 15:31 | XMS_ITS | Encounter Summary ---
Author Organization [employer] ([place], [place], [place], [place]) Address [address] [place] [address] Care Team Providers Care Ferryboat Captain Name Role Phone Unavailable Primary Care Provider Unavailabl e Encounter Details Date Type Department Care Team (Late st Contact Info) Description 12/01/2018 Transcribed Document [facility] [place] [address] [place] [address] ProviderErika MD [address] [place] [address] Social History Tobacco Use Types [...] Jose MD - 12/01/2018 3:00 PM CDT [facility] [place] [address] VILLASENOR DOTTIE Ladan :1940 Visit Time:11/16/2018 Your Visit Summary Your Care Team Admitting Physician - JULIO CESAR CARVALHO MD-CAT Attending Physician - JULIO CESAR CARVALHO MD-YADIRA Primary Care Physician - DEMETRICE ARMIJO NP-FAM Referring Physician - DEMETRICE ARMIJO NP-FAM Your Diagnosis Acute blood loss anemia Aortic insufficiency, Aortic insufficiency CAD (coronary artery disease), [place] coronary artery, Coronary artery disease GI bleed [...] do next Instructions From Your Care Team [facility]-Stroke Unit RN report #[phone] DC Summary #[phone] You may shower. Make sure your back [...] IF you have a fever greater than [id number], call the surgeon. DO NOT drive for [...] Where: [address] [place] [address]- Business (1) Follow Up with JULIO CESAR CARVALHO When 12/15/2018 12:15 PM EDT Where: [address] [place] [address] Business (1) Follow Up with DEMETRICE ARMIJO When Within 1 week Comments When you are discharged from [facility] please call to make a 1 week hospital follow-up appointment. Where: [address] [place] [address]- Follow Up with JOHN BOWEN When Within 6 weeks Comments Patient should call for a follow up appointment with [facility]. Where: [address] [place] [address]- Business (1) Medications What How [...] contain harmful chemicals. FOR MORE INFORMATION ??? [place] [employer]: www.lung.org ??? [place] [employer]: www.cancer.org This information is not intended to replace advice given to you by your health care provider. Make sure you discuss any questions you have with your health care provider. Document Released: 09/17/2005 Document Revised: 12/01/2016 Document Reviewed: 01/30/2014 [employer] Interactive Patient Education ?? 2017 [employer]. How to Take Your Blood Pressure HOW [...] 02/14/2004 Document Revised: 02/27/2017 Document Reviewed: 01/13/2017 [employer] Patient Education ?? 2017 [employer]. Coronary Artery Bypass Grafting, Care After [...] 02/27/2006 Document Revised: 08/31/2015 Document Reviewed: 01/17/2014 [employer] Patient Education ?? 2017 [employer]. Bleeding Precautions When on Anticoagulant Therapy [...] can be dangerous for you. ??? Many xqwh-fmn-grzakyu medicines for pain, colds, or stomach problems [...] provider. Document Released: 07/21/2016 Document Reviewed: 07/21/2016 [employer] Interactive Patient Education ?? 2017 [employer]. Atrial Fibrillation Introduction Atrial fibrillation is [...] Follow these instructions at home: ??? Take wlpc-cbb-jngkndo and prescription medicines only as told by [...] 09/17/2005 Document Revised: 01/15/2017 Document Reviewed: 02/10/2014 [employer] Interactive Patient Education ?? 2017 [employer]. misoprostol (reji ramos) [facility] What is the most important information I [...] disease; or ?? if you are dehydrated. [facility] category X. Misoprostol can cause defects, [...] may report side effects to FDA at 7-126-QSM-5914. What other drugs will affect misoprostol? Other drugs may interact with misoprostol, including prescription and khfu-jgw-whxcvrf medicines, vitamins, and herbal products. Tell each [...] to ensure that the information provided by [employer]. ('Mult[employer]') is accurate, up-to-date, and complete, but no guarantee is made to that effect. Drug information contained herein may be time sensitive. [employer] information has been compiled for use by healthcare practitioners and consumers in the [place] and therefore Hitch does not warrant that uses outside of the [place] are appropriate, unless specifically indicated otherwise. [employer] drug information does not endorse drugs, diagnose patients or recommend therapy. [employer] drug information is an informational resource designed [...] effective or appropriate for any given patient. [facility] does not assume any responsibility for any aspect of healthcare administered with the aid of information [facility] provides. The information contained herein is not intended to cover all possible uses, directions, precautions, warnings, drug interactions, allergic reactions, or adverse effects. If you have questions about the drugs you are taking, check with your doctor, nurse or pharmacist. Copyright 8187-8170 [facility]. Version: 8.01. Revision Date: 03/02/2014.sucralfate (oral) (angelica [...] may report side effects to FDA at 3-010-TUN-2574. What other drugs will affect sucralfate? Sucralfate can make it harder for your body to absorb other medications you take by mouth. Avoid taking any other medications within 2 hours before or after you take sucralfate. Other drugs may interact with sucralfate, including prescription and bnnn-ebh-trmwifv medicines, vitamins, and herbal products. Tell each [...] to ensure that the information provided by [employer]. ('Multum') is accurate, up-to-date, and complete, but no guarantee is made to that effect. Drug information contained herein may be time sensitive. Hitch information has been compiled for use by healthcare practitioners and consumers in the [place] and therefore Hitch does not warrant that uses outside of the [place] are appropriate, unless specifically indicated otherwise. [employer] drug information does not endorse drugs, diagnose patients or recommend therapy. [employer] drug information is an informational resource designed [...] effective or appropriate for any given patient. [employer] does not assume any responsibility for any aspect of healthcare administered with the aid of information Hitch provides. The information contained herein is not intended to cover all possible uses, directions, precautions, warnings, drug interactions, allergic reactions, or adverse effects. If you have questions about the drugs you are taking, check with your doctor, nurse or pharmacist. Copyright 2025-5087 [employer]. Version: 8.01. Revision Date: 01/03/2013.sucralfate (oral) (angelica [...] may report side effects to FDA at 6-150-FZF-5250. What other drugs will affect sucralfate? Sucralfate can make it harder for your body to absorb other medications you take by mouth. Avoid taking any other medications within 2 hours before or after you take sucralfate. Other drugs may interact with sucralfate, including prescription and luqu-lyt-rtszgyf medicines, vitamins, and herbal products. Tell each [...] to ensure that the information provided by [employer]. ('Multum') is accurate, up-to-date, and complete, but no guarantee is made to that effect. Drug information contained herein may be time sensitive. Hitch information has been compiled for use by healthcare practitioners and consumers in the [place] and therefore Hitch does not warrant that uses outside of the [place] are appropriate, unless specifically indicated otherwise. [employer] drug information does not endorse drugs, diagnose patients or recommend therapy. [employer] drug information is an informational resource designed [...] effective or appropriate for any given patient. [facility] does not assume any responsibility for any aspect of healthcare administered with the aid of information [facility] provides. The information contained herein is not intended to cover all possible uses, directions, precautions, warnings, drug interactions, allergic reactions, or adverse effects. If you have questions about the drugs you are taking, check with your doctor, nurse or pharmacist. Copyright 1473-0848 [employer]. Version: 8.01. Revision Date: 01/03/2013. Emergency Awareness [...] Assistance with quitting is available by contacting 6-468-KBTM-NOW. This is a free resource providing counseling, [...] not getting better or is getting worse. documented in this encounter Plan of Treatment Not on file documented as of this encounter Visit Diagnoses Not on filedocumented in this encounter
--- OUTSIDE RECORDS SUMMARY | 2025-03-02 15:31 | XMS_ITS | Encounter Summary ---
Author Organization [employer] ([place], [place], [place], [place]) Address [address] [place] [address] Care Team Providers Care Director Teen Post Name Role Phone Unavailable Primary Care Provider Unavailabl e Encounter Details Date Type Department Care Team (Late st Contact Info) Description 11/30/2018 Transcribed Document [facility] [place] [address] [place] [address] ProviderErika MD [address] [place], [...] Bed scale Routine Weight Entry Format : Posey Routine Weight, Pounds : 164 lb Routine Weight, Ounces : 1 oz Routine Weight Calculation : 74.57 kg Height Source : Measured Height Entry Format : Posey Height, Feet : 6 ft Height, Inches : 1 Inch Clinical Height : 185.42 cm Body Surface Area (BSA), Routine : 1.98 m2 Body Mass Index (BMI), Routine : 21.69 kg/m2 Dixie Fox RN - 11/30/2018 6:12 EDT Electronically signed by Christina Saini Conversion Health And Safety Inspector Cerner at 12/08/2022 12:39 PM CDT documented in this encounter Plan of Treatment Not on file documented as of this encounter Visit Diagnoses Not on filedocumented in this encounter
--- OUTSIDE RECORDS SUMMARY | 2025-03-02 15:31 | XMS_ITS | Encounter Summary ---
Author Organization [employer] ([place], [place], [place], [place]) Address [address] [place] [address] Care Team Providers Care Cooling Tower Operator Name Role Phone Unavailable Primary Care Provider Unavailabl e Encounter Details Date Type Department Care Team (Late st Contact Info) Description 11/20/2018 Transcribed Document [facility] [place] Family Medicine [address] [place] [address] ProviderErika MD [address] [place] [address] Social History Tobacco Use Types Packs/Day Years Used Date Smoking Tobacco: Never Assessed Sex and Gender Information Value Date Recorded Sex Assigned at Not on file Legal Sex Male 5:03 PM CDT Gender Identity Not on file Sexual Orientation Not on file documented as of this encounter Miscellaneous Notes * Cerner Conversion Note - Erika ProviderMD - 11/20/2018 9:36 AM CDT GLASS ROLLING MACHINE OPERATOR Note Entered On: 11/24/2018 13:28 EDT Performed On: 11/24/2018 13:19 EDT by MAMTA SOLO, GLASS ROLLING MACHINE OPERATOR Dysphagia Exercise Technique Dysphagia Therapy/Treatment Type #1 [...] Technique PO Trial #1 Consistency Trialed : [place] Oral Symptoms : None observed Pharyngeal Signs [...] 13:19 EDT Swallow Plan/Goals Swallow LTG Grid GLASS ROLLING MACHINE OPERATOR Alf Goal #1 GLASS ROLLING MACHINE OPERATOR Alf Goal #2 Swallow LTG : Establish safe [...] Date Met : 11/22/2018 EDT MAMTA SOLO, [facility] - 11/24/2018 13:19 EDT MAMTA SOLO GLASS ROLLING MACHINE OPERATOR - 11/24/2018 13:19 EDT MAMTA SOLO GLASS ROLLING MACHINE OPERATOR - 11/24/2018 13:19 EDT MAMTA SOLO [facility] - 11/24/2018 13:19 EDT LTG Lang/Comm/Cog LTG GLASS ROLLING MACHINE OPERATOR Alf Goal 1 Alf Goal 2 Goals : Improved spoken language expression at the time of discharge Improved auditory/spoken language comprehension at the time of discharge Status : Initial Initial MAMTA SOLO [facility] - 11/24/2018 13:19 EDT MAMTA SOLO SLP - 11/24/2018 13:19 EDT STG Lang_Comm_Cog Motor Speech STG Grid Goal #1 Activity : Improve intelligibility of speech Status : Initial MAMTA SOLO [facility] - 11/24/2018 13:19 EDT Auditory Comprehension Grid Goal #1 Goal #2 Activity : Follow directions, 3 step commands simple Comprehend paragraph complex MAMTA SOLO [facility] - 11/24/2018 13:19 EDT MAMTA SOLO [facility] - 11/24/2018 13:19 EDT Verbal Expression STG Grid Goal #1 Activity : Generate items in a category MAMTA SOLO [facility] - 11/24/2018 13:19 EDT Reading Comprehension STG Grid Goal #1 Activity : Visual perception deficits MAMTA SOLO [facility] - 11/24/2018 13:19 EDT Attention STG Grid Goal #1 Activity : Other: Probe Status : Goal met Date Met : 11/24/2018 TGT MAMTA SOLO [facility] - 11/24/2018 13:19 EDT Memory STG Grid Goal #1 Goal #2 Goal #3 Activity : Other: Probe Improve short term functional delayed Improve short term working memory Status : Goal met Initial Initial Date Met : 11/24/2018 TGT MAMTA SOLO [facility] - 11/24/2018 13:19 EDT MAMTA SOLO [facility] - 11/24/2018 13:19 EDT MAMTA SOLO [facility] - 11/24/2018 13:19 EDT Problem Solving STG [...] SOLO SLP - 11/24/2018 13:19 EDT Subjective/Assessment/Plan GLASS ROLLING MACHINE OPERATOR Patient Concern : Pt was awake and lying in bed. Agreeable to tx. GLASS ROLLING MACHINE OPERATOR Therapy/Treatment Asmt Cmnt : Pt seen for speech and dysphagia tx. Great participation in tx. Requires continuous cues for accurate completion of timing exercises. No overt pharyngeal patterns with nectar liquids. Further cogntive probe completed. Pt presents with a moderate cognitive deficits characterized by impairments in memory, orientation, and problem solving. POC updated. GLASS ROLLING MACHINE OPERATOR Plan : Continue per POC. Repeat swallow study Thursday. MAMTA SOLO SLP - 11/24/2018 13:19 EDT Education Barriers To Learning : Cognitive deficit Individuals Taught : Patient Readiness to Learn : Cooperative Readiness to Learn : Explanation MAMTA SOLO SLP - 11/24/2018 13:19 EDT GLASS ROLLING MACHINE OPERATOR Education Assessment Grid 1 Evaluation Results : Verbalizes understanding MAMTA SOLO SLP - 11/24/2018 13:19 EDT GLASS ROLLING MACHINE OPERATOR Education Assessment Grid 2 Treatment Plan : Verbalizes understanding MAMTA SOLO SLP - 11/24/2018 13:[address] [facility] GLASS ROLLING MACHINE OPERATOR Charges Speech Therapy : 1 Treatment-Swallowing : 1 MAMTA SOLO SLP - 11/24/2018 13:19 EDT Anticipated Discharge Needs, GLASS ROLLING MACHINE OPERATOR Anticipated Discharge to OT : Rehab, high intensity Recommend Continued Therapy at Discharge : Yes MAMTA SOLO SLP - 11/24/2018 13:19 EDT documented in this encounter Plan of Treatment Not on file documented as of this encounter Visit Diagnoses Not on filedocumented in this encounter
--- OUTSIDE RECORDS SUMMARY | 2025-03-02 15:31 | XMS_ITS | Encounter Summary ---
Author Organization [employer] ([place], [place], [place], [place]) Address [address] [place] [address] Care Team Providers Care Registered Dietician Name Role Phone Unavailable Primary Care Provider Unavailabl e Encounter Details Date Type Department Care Team (Late st Contact Info) Description 11/30/2018 Transcribed Document [facility] [place] [address] [place] [address] ProviderErika MD [address] [place] [address] Social History Tobacco Use [...] Historical ProviderMD - 11/30/2018 2:00 AM CDT [employer] Details Entered On: 11/30/2018 0:59 EDT Performed [...]
--- OUTSIDE RECORDS SUMMARY | 2025-03-02 15:31 | XMS_ITS | Encounter Summary ---
Author Organization [employer] ([place], [place], [place], [place]) Address [address] [place] [address] Care Team Providers Care Firestopper Installer Name Role Phone Unavailable Primary Care Provider Unavailabl e Encounter Details Date Type Department Care Team (Late st Contact Info) Description 11/24/2018 Transcribed Document [facility] [place] [address] [place] [address] ProviderErika MD [address] [place], [place] [id number] Social History Tobacco Use Types Packs/Day Years [...] 1940 Associated Diagnoses: CAD (coronary artery disease), [facility] coronary artery; Thrombocytopenia; Coronary artery disease; HTN [...] S1, S2, No edema. Integumentary: Warm, Dry, [place], incision is C/D/I. Neurologic: Alert, left sided [...] of discharge- CM has sent information to [facility] -Transfer to [facility] 11/24/18 -POD#8 -Awaiting transfer to [facility] -Awaiting response from [facility] EF 55-60% per echo 11/16/18 DVT Prophylaxis: SCDs Diagnosis CAD (coronary artery disease), [facility] coronary artery - Admitting, Medical. Thrombocytopenia - [...] - Discharge, Medical. Electronically signed by Interface, [facility] Conversion Sales Representative Sales Manager Cerner at 12/08/2022 12:10 PM CDT documented in this encounter Plan of Treatment Not on file documented as of this encounter Visit Diagnoses Not on filedocumented in this encounter
--- OUTSIDE RECORDS SUMMARY | 2025-03-02 15:31 | XMS_ITS | Encounter Summary ---
Author Organization [employer] ([place], [place], [place], [place]) Address [address] [place] [address] Care Team Providers Care Enterprise Resource Planner Name Role Phone Unavailable Primary Care Provider Unavailabl e Encounter Details Date Type Department Care Team (Late st Contact Info) Description 11/16/2018 Transcribed Document [facility] [place] Family Medicine [address] [place] [address] ProviderErika MD [address] [place] [address] Social History Tobacco Use Types [...]
--- OUTSIDE RECORDS SUMMARY | 2025-03-02 15:31 | XMS_ITS | Clinical Summary ---
Author Organization [facility] Address [address] [place] [phone] Phone Care Team Providers Care Bullet Lubricant Mixer Name Role Phone Svitlana Manley MD Primary Care Provider [phone] Social History Tobacco Use Types Packs/Day Years [...] - 2023-2 5 season) 2024 Influenza Vaccine (#1) 2025 Hepatitis B Vaccine Aged Out No longe r eligible based on patient's age to complete this topic Meningococcal B Vaccine Aged Out No l onger eligible based on patient's age to complete this topic Insurance MEDICARE [place] PART A AND B Care Teams Bullet Lubricant Mixer Relationship Specialty Start Date End Date Svitlana Manley MD [address] [place] [phone] PCP - General Family Medicine 04/10/16
--- OUTSIDE RECORDS SUMMARY | 2025-03-02 15:31 | XMS_ITS | Encounter Summary ---
Author Organization [employer] ([place], [place], [place], [place]) Address [address] [place] [address] Care Team Providers Care Technology Applications Consultant Name Role Phone Unavailable Primary Care Provider Unavailabl e Encounter Details Date Type Department Care Team (Late st Contact Info) Description 11/16/2018 Transcribed Document [facility] [address] [place] [address] Niles Nunez MD [address] [place], [place] [id number] Social History Tobacco Use Types Packs/Day Years [...]
--- OUTSIDE RECORDS SUMMARY | 2025-03-02 15:31 | XMS_ITS | Encounter Summary ---
Author Organization [employer] ([place], [place], [place], [place]) Address [address] [place] [address] Care Team Providers Care American Indian Studies Professor Name Role Phone Unavailable Primary Care Provider Unavailabl e Encounter Details Date Type Department Care Team (Late st Contact Info) Description 11/28/2018 Transcribed Document [facility] [place] Family Medicine [address] [place] [address] ProviderErika MD [address] [place] [address] Social History Tobacco Use Types [...] Spiritual Care Reason for Visit : Other: NEUROLOGIST Intervention/Comment/Summary Points : Pt fell back to sleep after RNs finished assessing pt. No needs at this time. [facility] Preference : Nondenominational MALU SHEPARD Chaplain-Non Cert - 11/28/2018 5:34 EDT documented in this encounter Plan of Treatment Not on file documented as of this encounter Visit Diagnoses Not on filedocumented in this encounter
--- OUTSIDE RECORDS SUMMARY | 2025-03-02 15:31 | XMS_ITS | Encounter Summary ---
Author Organization [employer] ([place], [place], [place], [place]) Address [address] [place] [address] Care Team Providers Care Vat Packer Name Role Phone Unavailable Primary Care Provider Unavailabl e Encounter Details Date Type Department Care Team (Late st Contact Info) Description 12/01/2018 Transcribed Document [facility] [place] [address] [place] [address] ProviderErika MD [address] [place] [address] Social History Tobacco Use Types [...] Dixie Fox RN - 12/01/2018 3:05 EDT documented in this encounter Plan of Treatment Not on file documented as of this encounter Visit Diagnoses Not on filedocumented in this encounter
--- OUTSIDE RECORDS SUMMARY | 2025-03-02 15:31 | XMS_ITS | Encounter Summary ---
Author Organization [employer] ([place], [place], [place], [place]) Address [address] [place] [address] Care Team Providers Care Sales And Service Change Leader Name Role Phone Unavailable Primary Care Provider Unavailabl e Encounter Details Date Type Department Care Team (Late st Contact Info) Description 11/20/2018 Transcribed Document [facility] [place] Family Medicine [address] [place] [address] ProviderErika MD [address] [place] [address] Social History Tobacco Use [...] TORREY ZUNIGA SLP General Information Visit Type, GUIDE DELEGATE : Initial evaluation Patient Orders : GUIDE DELEGATE Fxnl Limitation Documentation x 1 -111 Start: 11/20/18 8:39:00 EDT - SYSTEM, SYSTEM GUIDE DELEGATE Bedside Swallow Evaluation - Start: 11/20/18 8:38:00 EDT, Routine, For Swallow Eval and Treat -111 MICHAEL RODRIGUEZ MD Ordering Provider : MICHAEL RODRIGUEZ MD Admission Date : Admission Date/Time: 11/16/18 06:45:00 Personal Devices : Personal Devices No Devices Recorded Assistive Devices : Assistive Devices No Devices Recorded Active Diagnoses : 11/17/2018 00:00 Atherosclerotic heart disease of [place] coronary artery without angina pectoris 11/17/2018 00:00 Essential (primary) hypertension 11/17/2018 00:00 Hypothyroidism, unspecified 11/17/2018 00:00 Nonrheumatic aortic (valve) insufficiency 11/17/2018 00:00 Restless legs syndrome 11/17/2018 00:00 Thoracic aortic aneurysm, without rupture 11/17/2018 00:00 Thrombocytopenia, unspecified 11/16/2018 00:00 Atherosclerotic heart disease of [place] coronary artery without angina pectoris 11/16/2018 00:00 Nonrheumatic aortic (valve) insufficiency 11/16/2018 00:00 Thoracic aortic aneurysm, without rupture Therapy Diagnosis, GUIDE DELEGATE : overt signs and symptoms of aspiration at bedside Previous Speech/Language Evaluations : N/A Previous Swallow Precautions : N/A Previous Cognitive Evaluations : N/A Diet/Intake Prior to Current Admission : Regular/thin Diet/Intake During Current Admission : NPO Intubation Comment, GUIDE DELEGATE : 11/16-11/17 Vital Signs RTF : Vitals [...] : Nasal cannula 3 L/min TORREY ZUNIGA GUIDE DELEGATE - 11/20/2018 9:21 EDT General Status Patient Received Status, GUIDE DELEGATE : Long sitting in bed Patient Left Status, GUIDE DELEGATE : Long sitting in bed TORREY ZUNIGA [...] Hoarse, Other: Weak Resonance Types : Appropriate GUIDE DELEGATE Cough : Weak Facial Appearance: : Symmetrical [...] noted with thin via straw and puree. GUIDE DELEGATE unable to determine safe diet at bedside, recommend FEES to further assess swallow function. Continue NPO with alternate means of nutrition and meds until FEES. GUIDE DELEGATE discussed results and recs with patient and family. TORREY ZUNIGA SLP - 11/20/2018 9:26 EDT Impressions, BS Swallow : Signs/Symptoms of pharyngeal dysphagia Swallowing Outcome Measures : Functional Oral Intake Scale (FOIS) Functional Oral Intake Scale (FOIS) : Level I TORREY ZUNIGA GUIDE DELEGATE - 11/20/2018 9:21 EDT Swallow Recommendations Recommended Diet Type, SwRec : Non-oral feeding, NPO Swallow Position, SwRec : Upright 90 degrees Recommended Med Present, SwRec : Non-oral Recommended Exam, Sw Rec : FEES Repeat Swallow Exam Timeframe : 1-3 days TORREY ZUNIGA SLP - 11/20/2018 9:26 EDT Therapy Indication Assessment GUIDE DELEGATE Indicated : Yes GUIDE DELEGATE Problem List : Impaired, Swallowing TORREY ZUNIGA SLP - 11/20/2018 9:26 EDT Swallow Plan/Goals Treatment Frequency, GUIDE DELEGATE : 4 times per wk Treatment Duration, GUIDE DELEGATE : Two weeks TORREY ZUNIGA SLP - 11/20/2018 9:26 EDT Swallow LTG Grid GUIDE DELEGATE Jail Goal #1 Swallow LTG : Establish safe [...] TORREY ZUNIGA SLP - 11/20/2018 9:26 EDT GUIDE DELEGATE Education Assessment Grid 1 Diet Recommendation : Verbalizes understanding Dysphagia : Verbalizes understanding Non-Oral Nutrition : Verbalizes understanding NPO : Verbalizes understanding TORREY ZUNIGA SLP - 11/20/2018 9:26 EDT GUIDE DELEGATE Education Assessment Grid 2 Treatment Plan : Verbalizes understanding TORREY ZUNIGA SLP - 11/20/2018 9:[address] [facility] GUIDE DELEGATE Charges Evaluation Swallowing Function : 1 TORREY ZUNIGA SLP - 11/20/2018 9:26 EDT Functional Limitation Reporting, GUIDE DELEGATE Functional Limitation Visit Type, GUIDE DELEGATE : Initial evaluation Severity Determination Method, GUIDE DELEGATE : Clinical Judgment, Swallowing Swallow G8996 - Current Mod, GUIDE DELEGATE : 80 - 99% impaired, limited or restricted (CM) Swallow G8997 - Proj Goal Mod, GUIDE DELEGATE : 1 - 19% impaired, limited or restricted (CI) TORREY ZUNIGA SLP - 11/20/2018 9:26 EDT Electronically signed by Parveen [facility] Conversion Extension Agent Cerner at 12/08/2022 12:30 PM CDT documented in this encounter Plan of Treatment Not on file documented as of this encounter Visit Diagnoses Not on filedocumented in this encounter
--- OUTSIDE RECORDS SUMMARY | 2025-03-02 15:31 | XMS_ITS | Encounter Summary ---
Author Organization [employer] ([place], [place], [place], [place]) Address [address] [place] [address] Care Team Providers Care Malted Milk Masher Name Role Phone Unavailable Primary Care Provider Unavailabl e Encounter Details Date Type Department Care Team (Late st Contact Info) Description 11/24/2018 Transcribed Document [facility] [place] Family Medicine [address] [place] [address] ProviderErika MD [address] [place] [address] Social History Tobacco Use Types [...]
--- OUTSIDE RECORDS SUMMARY | 2025-03-02 15:31 | XMS_ITS | Encounter Summary ---
Author Organization [employer] ([place], [place], [place], [place]) Address [address] [place] [address] Care Team Providers Care Licensed Massage Therapist Name Role Phone Unavailable Primary Care Provider Unavailabl e Encounter Details Date Type Department Care Team (Late st Contact Info) Description 11/16/2018 Transcribed Document [facility] [place] [facility] [address] [place] [address] ProviderErika MD [address] [place] [address] Social History Tobacco Use Types [...] On: 11/16/2018 12:27 EDT by Lorin Pratt [facility] Phone Call for Consults Consult Phone Call/Page Attempt : First call Lorin Pratt [facility] - 11/16/2018 13:34 EDT Electronically signed by Christina Saini Conversion Plywood And Veneer Repairer Cerner at 12/08/2022 12:13 PM CDT documented in this encounter Plan of Treatment Not on file documented as of this encounter Visit Diagnoses Not on filedocumented in this encounter
--- OUTSIDE RECORDS SUMMARY | 2025-03-02 15:31 | XMS_ITS | Encounter Summary ---
Author Organization [employer] ([place], [place], [place], [place]) Address [address] [place] [address] Care Team Providers Care Electrical Engineering Manager Name Role Phone Unavailable Primary Care Provider Unavailabl e Encounter Details Date Type Department Care Team (Late st Contact Info) Description 11/21/2018 Transcribed Document [facility] [place] Family Medicine [address] [place] [address] ProviderErika MD [address] [place] [address] Social History Tobacco Use Types [...] 11/21/2018 9:37 EDT by José Miguel Tran, [facility] COORD Phone Call for Consults Consult Phone Call/Page Attempt : Other: Nurse spoke to Dr. Amaro. José Miguel Tran [facility] COORD - 11/21/2018 9:40 EDT Electronically signed by Christina Saini Conversion Digital Marketing Apprentice Felipe at 12/08/2022 12:25 PM CDT documented in this encounter Plan of Treatment Not on file documented as of this encounter Visit Diagnoses Not on filedocumented in this encounter
--- OUTSIDE RECORDS SUMMARY | 2025-03-02 15:31 | XMS_ITS | Encounter Summary ---
Author Organization [employer] ([place], [place], [place], [place]) Address [address] [place] [address] Care Team Providers Care Air Tank Assembler Name Role Phone Unavailable Primary Care Provider Unavailabl e Encounter Details Date Type Department Care Team (Late st Contact Info) Description 11/16/2018 Transcribed Document [facility] [place] [address] [place] [address] ProviderErika MD [address] [place] [address] Social History Tobacco Use Types [...]
--- OUTSIDE RECORDS SUMMARY | 2025-03-02 15:31 | XMS_ITS | Encounter Summary ---
Author Organization [employer] ([place], [place], [place], [place]) Address [address] [place] [address] Care Team Providers Care Law Examiner Name Role Phone Unavailable Primary Care Provider Unavailabl e Encounter Details Date Type Department Care Team (Late st Contact Info) Description 11/28/2018 Transcribed Document [facility] [place] [address] [place] [address] ProviderErika MD [address] [place] [address] Social History Tobacco Use Types [...] Hernandez RN, PT - 11/28/2018 10:29 EDT documented in this encounter Plan of Treatment Not on file documented as of this encounter Visit Diagnoses Not on filedocumented in this encounter
--- OUTSIDE RECORDS SUMMARY | 2025-03-02 15:31 | XMS_ITS | Encounter Summary ---
Author Organization [employer] ([place], [place], [place], [place]) Address [address] [place] [address] Care Team Providers Care Shipper And Receiving Name Role Phone Unavailable Primary Care Provider Unavailabl e Encounter Details Date Type Department Care Team (Late st Contact Info) Description 11/16/2018 Transcribed Document [facility] [place] Family Medicine [address] [place] [address] ProviderErika MD [address] [place] [address] Social History Tobacco Use Types [...] : 11/17/2018 00:00 Atherosclerotic heart disease of [place] coronary artery without angina pectoris 11/17/2018 00:00 Essential (primary) hypertension 11/17/2018 00:00 Hypothyroidism, unspecified 11/17/2018 00:00 Nonrheumatic aortic (valve) insufficiency 11/17/2018 00:00 Restless legs syndrome 11/17/2018 00:00 Thoracic aortic aneurysm, without rupture 11/17/2018 00:00 Thrombocytopenia, unspecified 11/16/2018 00:00 Atherosclerotic heart disease of [place] coronary artery without angina pectoris 11/16/2018 00:00 [...] LEWIS, PT - 11/18/2018 16:07 EDT ROGER LEIWS, PT - 11/18/2018 16:07 EDT Left Upper [...] training, Gait training, Therapeutic exercises, Transfer training ROEGR LEWIS, PT - 11/18/2018 16:07 EDT Short [...] ROGER LEWIS, PT - 11/18/2018 16:07 EDT Detention Goals Mobility/Bed Mobility LTG PT Grid Goal [...] ROGER LEWIS, PT - 11/18/2018 16:07 EDT [place] PT Charges PT Eval Moderate Complexity : 1 ROGER LEWIS, PT - 11/18/2018 16:07 EDT Electronically signed by Parveen, Christina Conversion Exercise Equipment Repair Technician Cerner at 12/08/2022 12:19 PM CDT documented in this encounter Plan of Treatment Not on file documented as of this encounter Visit Diagnoses Not on filedocumented in this encounter
--- OUTSIDE RECORDS SUMMARY | 2025-03-02 15:31 | XMS_ITS | Encounter Summary ---
Author Organization [employer] ([place], [place], [place], [place]) Address [address] [place] [address] Care Team Providers Care General Helper Name Role Phone Unavailable Primary Care Provider Unavailabl e Encounter Details Date Type Department Care Team (Late st Contact Info) Description 11/16/2018 Transcribed Document [facility] [place] Family Medicine [address] [place] [address] ProviderErika MD [address] [place] [address] Social History Tobacco Use Types [...] PROCEDURE: 1. Left radial arterial line. 2. Gaylord-Jovanna catheter. SURGEON: Porfirio Gaxiola IV, MD Procedure [...] introducer was applied over guidewire, then a Gaylord-Jovanna catheter was advanced down MAC introducer to [...]
--- OUTSIDE RECORDS SUMMARY | 2025-03-02 15:31 | XMS_ITS | Encounter Summary ---
Author Organization [employer] ([place], [place], [place], [place]) Address [address] [place] [address] Care Team Providers Care Right Of Way Buyer Name Role Phone Unavailable Primary Care Provider Unavailabl e Encounter Details Date Type Department Care Team (Late st Contact Info) Description 11/28/2018 Transcribed Document [facility] [place] Family Medicine [address] [place] [address] ProviderErika MD [address] [place], [place] [address] Social History Tobacco Use Types Packs/Day Years [...]
--- OUTSIDE RECORDS SUMMARY | 2025-03-02 15:31 | XMS_ITS | Encounter Summary ---
Author Organization [email or web address] ([place], [place], [place], [place]) Address [address] [place] [address] Care Team Providers Care Hemodialysis Charge Nurse Name Role Phone Unavailable Primary Care Provider Unavailabl e Encounter Details Date Type Department Care Team (Late st Contact Info) Description 11/24/2018 Transcribed Document [facility] [place] Family Medicine [address] [place] [address] ProviderErika MD [address] [place] [address] Social History Tobacco Use Types Packs/Day Years Used Date Smoking Tobacco: Never Assessed Sex and Gender Information Value Date Recorded Sex Assigned at Not on file Legal Sex Male 5:03 PM CDT Gender Identity Not on file Sexual Orientation Not on file documented as of this encounter Miscellaneous Notes * Cerner Conversion Note - Historical ProviderMD - 11/24/2018 2:00 AM CDT [employer] Details Entered On: 11/24/2018 3:36 EDT Performed [...]
--- OUTSIDE RECORDS SUMMARY | 2025-03-02 15:31 | XMS_ITS | Encounter Summary ---
Author Organization [employer] ([place], [place], [place], [place]) Address [address] [place] [address] Care Team Providers Care Structural Steel Trades Worker Name Role Phone Unavailable Primary Care Provider Unavailabl e Encounter Details Date Type Department Care Team (Late st Contact Info) Description 11/28/2018 Transcribed Document [facility] [place] Family Medicine [address] [place] [address] ProviderErika MD [address] [place] [address] Social History Tobacco Use Types [...] access. 20R shoulder x1 attempt using vein dyeing machine back tender. 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 Audit Clerk Cerner at 12/08/2022 12:28 PM CDT documented in this encounter Plan of Treatment Not on file documented as of this encounter Visit Diagnoses Not on filedocumented in this encounter
--- OUTSIDE RECORDS SUMMARY | 2025-03-02 15:31 | XMS_ITS | Encounter Summary ---
Author Organization [employer] ([place], [place], [place], [place]) Address [address] [place] [address] Care Team Providers Care Sonography Technologist Name Role Phone Unavailable Primary Care Provider Unavailabl e Encounter Details Date Type Department Care Team (Late st Contact Info) Description 11/28/2018 Transcribed Document [facility] [place] Family Medicine [address] [place] [address] ProviderErika MD [address] [place] [address] Social History Tobacco Use Types [...] : Transfer to critical care Rapid Response Sonography Technologist #1 : MICHAEL WALLER RN Rapid Response Sonography Technologist #2 : DIA BINGHAM RN Rapid Response Sonography Technologist #3 : SRINIVAS LEAL RN [place], CAMERON, [...] Team Initiation Reason Details : [address]E 333. INWEAVER notified of pt with decrease in BP despite treatment. MD notified. Bolus given and pt labwork obtained. 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
--- OUTSIDE RECORDS SUMMARY | 2025-03-02 15:31 | XMS_ITS | Encounter Summary ---
Author Organization [employer] ([place], [place], [place], [place]) Address [address] [place] [address] Care Team Providers Care Bilingual Hr Generalist Name Role Phone Unavailable Primary Care Provider Unavailabl e Encounter Details Date Type Department Care Team (Late st Contact Info) Description 11/28/2018 Transcribed Document [facility] [place] [address] [place] [address] ProviderErika MD [address] [place] [address] Social History Tobacco Use Types [...] Robyn Benitez, RN - 11/28/2018 5:01 EDT documented in this encounter Plan of Treatment Not on file documented as of this encounter Visit Diagnoses Not on filedocumented in this encounter
--- OUTSIDE RECORDS SUMMARY | 2025-03-02 15:31 | XMS_ITS | Encounter Summary ---
Author Organization [employer] ([place], [place], [place], [place]) Address [address] [place] [address] Care Team Providers Care Safety Associate Name Role Phone Unavailable Primary Care Provider Unavailabl e Encounter Details Date Type Department Care Team (Late st Contact Info) Description 11/23/2018 Transcribed Document [facility] [place] Family Medicine [address] [place] [address] ProviderErika MD [address] [place] [address] Social History Tobacco Use Types [...]
--- OUTSIDE RECORDS SUMMARY | 2025-03-02 15:31 | XMS_ITS | Encounter Summary ---
Author Organization [employer] ([place], [place], [place], [place]) Address [address] [place] [address] Care Team Providers Care Beef Grinder Name Role Phone Unavailable Primary Care Provider Unavailabl e Encounter Details Date Type Department Care Team (Late st Contact Info) Description 11/20/2018 Transcribed Document [facility] Medicine [id number] Eloy Rodrigues MD [address] [place], [place] [id number] Social History Tobacco Use Types Packs/Day Years [...] 16:32:27 Trans: 11/20/2018 22:52:43 Processed: 11/22/2018 09:57:30 Pierz CC1: Eloy Rodrigues M.D. documented in this encounter Plan of Treatment Not on file documented as of this encounter Visit Diagnoses Not on filedocumented in this encounter
--- OUTSIDE RECORDS SUMMARY | 2025-03-02 15:31 | XMS_ITS | Encounter Summary ---
Author Organization [employer] ([place], [place], [place], [place]) Address [address] [place] [address] Care Team Providers Care Pharmacy Operations Manager Name Role Phone Unavailable Primary Care Provider Unavailabl e Encounter Details Date Type Department Care Team (Late st Contact Info) Description 12/01/2018 Transcribed Document [facility] [place] Family Medicine [address] [place] [address] ProviderErika MD [address] [place] [address] Social History Tobacco Use Types [...] and arrangements, chart reviewed, received word from [facility] that bed is available for patient today, on their stroke unit. Patient to be transported via [facility], p/u set for 3pm. RN report to be called to [phone] and discharge summary to be faxed to [phone]. Pt, RN and family aware and in agreement with plan. ANGELA NAIR Social Worker - 12/01/2018 11:35 EDT Care Management Note Report : SUZANNA HAINES Social Worker - 11/30/18 15:30:18 Covering today for D/c planning, pt back on 3E room 330. Discussed w/ Carmen from [facility] who is still following pt. She has submitted pt info to MD for approval. Pt had EGD 11/29 which revealed duodenal ulcer w/ clot but no bleeding, no intervention needed, Off heparin gtt, watching pt's INR and H & H. Speech signed off today, pt is cleared for thins. Met w/ pt and family and informed them of [facility] situation. Also discussed outpt Cardiac Rehab. They prefer to go to [facility]. Phoned them and left msg, sent pt info to them. CM will cont to follow. ANGELA NAIR Client Technical Support Associate - 11/26/18 11:20:05 Continue to follow for discharge needs and arrangements, chart reviewed, admission day 10, transfer from [facility], on room air, WBC=11.2, INR=1.1, PTT=55.8, on IV Heparin gtt due to DVT in left arm, MBS completed today now on regular cardiac diet with thin liquids, PT/OT following (not seen on 11/25/18) followed up with [facility] today regarding possible admission - plan is to submit for approval today after being seen by therapy. Awaiting ANGELA NAIR Client Technical Support Associate - 11/26/18 11:24:04 Continue to follow for discharge needs and arrangements, chart reviewed, admission day 10, transfer from [facility], on room air, WBC=11.2, INR=1.1, PTT=55.8, on IV Heparin gtt due to DVT in left arm, MBS completed today now on regular cardiac diet with thin liquids, PT/OT following (not seen on 11/25/18) followed up with [facility] today regarding possible admission - plan is to submit for approval today after being seen by therapy, for their MD approval. Once accepting MD in place, bed in place and patient is medically stable will be able to transfer due to patient not requiring a insurance prior auth. CM will continue to follow. ODALYS FAULKNER, Rn-Aerial Erector - 11/24/18 13:22:19 11/24/18 Andra from [facility] called to let me know they started a precert on this pt. CF ODALYS FAULKNER Rn-Aerial Erector - 11/22/18 13:56:32 11/22/18 Pt has had a cva. Spoke to his Connie and son Sumeet at the bedside. Pt is lfacid on the left side. Discussed the need for STR and they decided on [facility]. Sent pt info via [employer] to [facility]. CF Documentation Status Complete : Yes ANGELA NAIR Social Worker - 12/01/2018 11:24 EDT Discharge Planning Details Home Caregiver Name/Relationship : Connie King [phone] spouse Discharge Placement Needs : Rehabilitation unit/facility [...] Yes Patient/Family Notified : Connie King Spouse [phone] ANGELA NAIR Social Worker - 12/01/2018 11:35 EDT Final Discharge Disposition Note-CM Discharge To Care Management : IRF -Inpatient Rehabilitation Facility-62 Name of Receiving Facility/Provider-CM : [facility] Stroke unit ANGELA NAIR Social Worker - 12/01/2018 11:35 EDT documented in this encounter Plan of Treatment Not on file documented as of this encounter Visit Diagnoses Not on filedocumented in this encounter
--- OUTSIDE RECORDS SUMMARY | 2025-03-02 15:31 | XMS_ITS | Encounter Summary ---
Author Organization [employer] ([place], [place], [place], [place]) Address [address] [place] [address] Care Team Providers Care Clinical Sciences Professor Name Role Phone Unavailable Primary Care Provider Unavailabl e Encounter Details Date Type Department Care Team (Late st Contact Info) Description 12/01/2018 Transcribed Document [facility] [place] [address] [place] [address] ProviderErika MD [address] [place], [place] [id number] Social History Tobacco Use Types Packs/Day Years [...] 1940 Associated Diagnoses: CAD (coronary artery disease), [place] coronary artery; Thrombocytopenia; Coronary artery disease; HTN [...] complaints. 11/30/18: No complaints, transferred back to [facility] yesterday 12/01/18: Up to chair today, hopefully to [facility] today Review of Systems Constitutional: Weakness. [...] Musculoskeletal: left arm swelling. Integumentary: Warm, Dry, [place], incision is C/D/I. Neurologic: Alert, left sided [...] (Current Encounter/Past 24 Hours) PT 14.6 Second(s) AR 12/01/2018 06:53 INR 1.4 AR 12/01/2018 06:53 . Impression and Plan Plan: [...] time of discharge- has sent information to [facility] -Transfer to [facility] 11/24/18 -POD#8 -Awaiting transfer to [facility] -Awaiting response from [facility] 11/25/18 -POD#9 -left upper extremity venous doppler - doppler this am positive for LUE DVT - will start coumadin and heparin bridge -awaiting [facility] 11/26/18 -POD#10 -Heparin drip and coumadin for LUE DVT -Left arm swelling improved today -INR 1.1 today, INR goal 2-3 -Possibly transfer to [facility] this weekend 11/27/18: -POD#11 -Left arm swelling continues to improve -Continues on Coumadin and heparin bridge -INR: 1.4 (1.1 yesterday) goal: 2 to 3 -[facility] soon,? Tomorrow 11/28/18: -POD#12 -BP in 70s-80s this AM -He had a dark black stool and has had a couple of fluid boluses -Heparin was D/C'd and his INR is 2.0 this AM (on coumadin 5mg qd) -Hct is down to 23.6 -GI med has been consulted and he is to undergo EGD -Also some blood has been set up. -Transferred to [facility] 11/29/18: -POD#13 -Upper endoscopy showed duodenal [...] D/C due to GI bleed. -Transfer to [facility] 11/30/18 POD # 14 EGD yesterday - duodenal ulceration with clot, no active bleeding and no intervention performed INR trending down, off coumadin and heparin Speech signed off yesterday - speech and cognition back to baseline Watch INR and H&H [facility] upon discharge 12/01/18 POD # 15 Bed available at [facility] today\.brTH stable, INR 1.4 EF 55-60% per echo 11/16/18 DVT Prophylaxis: SCDs Diagnosis CAD (coronary artery disease), [place] coronary artery - Admitting, Medical. Thrombocytopenia - [...] - Discharge, Medical. Electronically signed by Parveen [facility] Conversion Quotation Checker Cerner at 12/08/2022 12:20 PM CDT documented in this encounter Plan of Treatment Not on file documented as of this encounter Visit Diagnoses Not on filedocumented in this encounter
--- OUTSIDE RECORDS SUMMARY | 2025-03-02 15:31 | XMS_ITS | Encounter Summary ---
Author Organization [employer] ([place], [place], [place], [place]) Address [address] [place] [address] Care Team Providers Care System Specialist Name Role Phone Unavailable Primary Care Provider Unavailabl e Encounter Details Date Type Department Care Team (Late st Contact Info) Description 11/16/2018 Transcribed Document [facility] [place] [address] [place] [address] ProviderErika MD [address] [place] [address] Social History Tobacco Use Types [...] anterior descending). SURGEON: Porfirio Gaxiola IV, MD CYLINDER BLOCK MECHANIC: Saud Oliver (AMANDA) ANESTHESIA: General orotracheal. CLINICAL [...] Gaxiola IV, M.D. Electronically signed by Parveen [facility] Conversion Field Assessor Cerner at 12/08/2022 12:25 PM CDT documented in this encounter Plan of Treatment Not on file documented as of this encounter Visit Diagnoses Not on filedocumented in this encounter
--- OUTSIDE RECORDS SUMMARY | 2025-03-02 15:31 | XMS_ITS | Encounter Summary ---
Author Organization [employer] ([place], [place], [place], [place]) Address [address] [place] [address] Care Team Providers Care Communication Instructor Name Role Phone Unavailable Primary Care Provider Unavailabl e Encounter Details Date Type Department Care Team (Late st Contact Info) Description 11/28/2018 Transcribed Document [facility] [place] [address] [place] [address] ProviderErika MD [address] [place] [address] Social History Tobacco Use Types [...]
--- OUTSIDE RECORDS SUMMARY | 2025-03-02 15:31 | XMS_ITS | Encounter Summary ---
Author Organization [employer] ([place], [place], [place], [place]) Address [address] [place] [address] Care Team Providers Care Construction Engineering Manager Name Role Phone Unavailable Primary Care Provider Unavailabl e Encounter Details Date Type Department Care Team (Late st Contact Info) Description 11/20/2018 Transcribed Document [facility] [place] [address] [place] [address] ProviderErika MD [address] [place] [address] Social History Tobacco Use Types [...] Admission Diagnosis : Atherosclerotic heart disease of [place] coronary artery without angina pectoris Atherosclerotic heart disease of [place] coronary artery without angina pectoris Essential (primary) [...] change in location/level of care Rapid Response Construction Engineering Manager #1 : MICHAEL WALLER, RN MICHAEL WALLER, RN - 11/20/2018 13:07 EDT Electronically signed by Parveen [facility] Conversion Medical Claims Processor Cerner at 12/08/2022 12:16 PM CDT documented in this encounter Plan of Treatment Not on file documented as of this encounter Visit Diagnoses Not on filedocumented in this encounter
--- OUTSIDE RECORDS SUMMARY | 2025-03-02 15:31 | XMS_ITS | Encounter Summary ---
Author Organization [employer] ([place], [place], [place], [place]) Address [address] [place] [address] Care Team Providers Care City Administrator Name Role Phone Unavailable Primary Care Provider Unavailabl e Encounter Details Date Type Department Care Team (Late st Contact Info) Description 12/01/2018 Transcribed Document [facility] [place] [address] [place] [address] ProviderErika MD [address] [place] [address] Social History Tobacco Use Types Packs/Day Years Used Date Smoking Tobacco: Never Assessed Sex and Gender Information Value Date Recorded Sex Assigned at Not on file Legal Sex Male 5:03 PM CDT Gender Identity Not on file Sexual Orientation Not on file documented as of this encounter Miscellaneous Notes * [employer]ner Conversion Note - Historical ProviderMD - 12/01/2018 2:00 AM CDT Pace Analyst Details Entered On: 12/01/2018 0:23 EDT Performed [...]
--- OUTSIDE RECORDS SUMMARY | 2025-03-02 15:31 | XMS_ITS | Encounter Summary ---
Author Organization [employer] ([place], [place], [place], [place]) Address [address] [place] [address] Care Team Providers Care Carrier Blower Name Role Phone Unavailable Primary Care Provider Unavailabl e Encounter Details Date Type Department Care Team (Late st Contact Info) Description 11/28/2018 Transcribed Document [facility] [place] [address] [place] [address] ProviderErika MD [address] [place], [place] [phone] Social History Tobacco Use Types Packs/Day Years [...] 1940 Associated Diagnoses: CAD (coronary artery disease), [place] coronary artery; Thrombocytopenia; Coronary artery disease; HTN [...] mg, Oral, At Bedtime saliva substitutes: 1 [place], Buccal, Q2H, PRN: Other (See Comment) warfarin: [...] Q1H saliva substitute liq 59 mL 1 [place], Buccal, Q2H Problem list: Medical Aneurysm, thoracic aortic / SNOMED CT 1505885497 / Confirmed Aortic valve insufficiency / SNOMED CT 612124612 / Confirmed Arthritis / SNOMED CT 6748051 / Confirmed At risk for sleep apnea / IMO 08172166 / Confirmed CAD (coronary artery disease) / SNOMED CT 19478210 / Confirmed HTN - Hypertension / SNOMED CT 8704810688 / Confirmed Hypothyroidism / SNOMED CT 27340186 / Confirmed Frequent urination / SNOMED CT 725767687 / Confirmed Nocturia / SNOMED CT 923736092 / Confirmed Prostate stricture / SNOMED CT 65014225 / Confirmed, Active Problems (13) Aneurysm, thoracic [...] swelling - improved today. Integumentary: Warm, Dry, [place], incision is C/D/I. Neurologic: Alert, Oriented, left [...] (Current Encounter/Past 24 Hours) PT 20.8 Second(s) AK 11/28/2018 09:08 PTT 27.6 Second(s) 11/28/2018 08:53 INR 2.0 AK 11/28/2018 09:08 . Impression and Plan Plan: [...] of discharge- CM has sent information to [facility] -Transfer to [facility] 11/24/18 -POD#8 -Awaiting transfer to [facility] -Awaiting response from [facility] 11/25/18 -left upper extremity venous doppler - doppler this am positive for LUE DVT - will start coumadin and heparin bridge -awaiting [facility] 11/26/18 -Heparin drip and coumadin for LUE DVT Left arm swelling improved today INR 1.1 today, INR goal 2-3 Possibly transfer to [facility] this weekend 11/27/18: Left arm swelling continues to improve Continues on Coumadin and heparin bridge INR: 1.4 (1.1 yesterday) goal: 2 to 3 [facility] soon,? Tomorrow 11/28/18 BP in 70s-80s [...] Prophylaxis: SCDs Diagnosis CAD (coronary artery disease), [place] coronary artery - Admitting, Medical. Thrombocytopenia - [...]
--- OUTSIDE RECORDS SUMMARY | 2025-03-02 15:31 | XMS_ITS | Referral Summary ---
Author Organization [employer] ([place], [place], [place], [place]) Address [address] [place] [address] Care Team Providers Care Parts Identifier Name Role Phone Unavailable Primary Care Provider [...]
--- OUTSIDE RECORDS SUMMARY | 2025-03-02 15:31 | XMS_ITS | Encounter Summary ---
Author Organization [employer] ([place], [place], [place], [place]) Address [address] [place] [address] Care Team Providers Care Security Officer Supervisor Name Role Phone Unavailable Primary Care Provider Unavailabl e Encounter Details Date Type Department Care Team (Late st Contact Info) Description 11/23/2018 Transcribed Document [facility] [place] Medicine [address] [place] [address] ProviderErika MD [address] [place] [address] Social History Tobacco Use Types [...] EDT Electronically signed by Christina Saini Conversion Electrocardiograph Operator Cerner at 12/08/2022 12:29 PM CDT documented in this encounter Plan of Treatment Not on file documented as of this encounter Visit Diagnoses Not on filedocumented in this encounter
--- OUTSIDE RECORDS SUMMARY | 2025-03-02 15:31 | XMS_ITS | Encounter Summary ---
Author Organization [employer] ([place], [place], [place], [place]) Address [address] [place] [address] Care Team Providers Care Data Librarian Name Role Phone Unavailable Primary Care Provider Unavailabl e Encounter Details Date Type Department Care Team (Late st Contact Info) Description 11/23/2018 Transcribed Document [facility] [place] [address] [place] [address] ProviderErika MD [address] [place] [address] Social History Tobacco Use Types [...] Tab, Oral, At Bedtime saliva substitutes, 1 [place], Buccal, Q2H, PRN Senokot, 17.2 mg= 2 Tab, Oral, BID Zofran, 4 mg= 2 mL, IV Push, Q4H, PRN Electronically signed by Parveen, [facility] Conversion Chemical Tester Cerner at 12/08/2022 12:26 PM CDT documented in this encounter Plan of Treatment Not on file documented as of this encounter Visit Diagnoses Not on filedocumented in this encounter
--- OUTSIDE RECORDS SUMMARY | 2025-03-02 15:31 | XMS_ITS | Encounter Summary ---
Author Organization [employer] ([place], [place], [place], [place]) Address [address] [place] [address] Care Team Providers Care Car Framer Name Role Phone Unavailable Primary Care Provider Unavailabl e Encounter Details Date Type Department Care Team (Late st Contact Info) Description 11/20/2018 Transcribed Document [facility] [place] [address] [place] [address] ProviderErika MD [address], [place] [phone] Social History Tobacco Use Types Packs/Day Years [...] Bedtime, Routine HEENT saliva substitutes - 1 [place], Buccal, Liquid, Q2H, PRN for Other (See [...] Radiology results Radiology Results (Last 48 hours) [id number] -- 11/16/2018 06:45 CR Chest 1 Vw [...] Shortness of breathCOMPARISON: 1 day priorFINDINGS: A [place] catheter tip terminates in the SVC. The [place]-Ganzcatheter has been retracted. The cardiac silhouette is [...] HEME: [place] count is improving. HCT stable Electronically signed by Christina Saini Conversion Supervisor Inventory Merchandising Cerner at 12/08/2022 12:13 PM CDT documented in this encounter Plan of Treatment Not on file documented as of this encounter Visit Diagnoses Not on filedocumented in this encounter
--- OUTSIDE RECORDS SUMMARY | 2025-03-02 15:31 | XMS_ITS | Encounter Summary ---
Author Organization [employer] ([place], [place], [place], [place]) Address [address] [place] [address] Care Team Providers Care Injection Molding Machine Tender Name Role Phone Unavailable Primary Care Provider Unavailabl e Encounter Details Date Type Department Care Team (Late st Contact Info) Description 12/01/2018 Transcribed Document [facility] [place] [address] [place] [address] ProviderErika MD [address] [place] [...] 09/17/2005 Document Revised: 12/01/2016 Document Reviewed: 01/30/2014 [employer] Interactive Patient Education ? 2017 [employer] How to Take Your Blood Pressure [...] 07/23/2009 Document Revised: 08/31/2015 Document Reviewed: 10/05/2014 [employer] Interactive Patient Education ? 2017 [employer] How to Take a Pulse Your [...] 02/14/2004 Document Revised: 02/27/2017 Document Reviewed: 01/13/2017 [employer] Interactive Patient Education ? 2017 [employer] Coronary Artery Bypass Grafting, Care After [...] 02/27/2006 Document Revised: 08/31/2015 Document Reviewed: 01/17/2014 [employer] Interactive Patient Education ? 2017 [employer] Bleeding Precautions When on Anticoagulant Therapy [...] can be dangerous for you. ??? Many oopk-cuo-leamsjq medicines for pain, colds, or stomach problems [...] provider. Document Released: 07/21/2016 Document Reviewed: 07/21/2016 [employer] Interactive Patient Education ? 2017 [employer] Atrial Fibrillation Introduction Atrial fibrillation is [...] Follow these instructions at home: ??? Take aqha-yko-xeiqgnv and prescription medicines only as told by [...] 02/10/2014 [employer] Interactive Patient Education ? 2017 [employer] documented in this encounter Plan of Treatment Not on file documented as of this encounter Visit Diagnoses Not on filedocumented in this encounter
--- OUTSIDE RECORDS SUMMARY | 2025-03-02 15:31 | XMS_ITS | Encounter Summary ---
Author Organization [employer] ([place], [place], [place], [place]) Address [address] [place] [address] Care Team Providers Care Rn Acute Name Role Phone Unavailable Primary Care Provider Unavailabl e Encounter Details Date Type Department Care Team (Late st Contact Info) Description 12/01/2018 Transcribed Document [facility] [place] [address] [place] [address] ProviderErika MD [address] [place] [address] Social History Tobacco Use Types [...]
--- OUTSIDE RECORDS SUMMARY | 2025-03-02 15:31 | XMS_ITS | Encounter Summary ---
Author Organization [employer] ([place], [place], [place], [place]) Address [address] [place] [address] Care Team Providers Care Childcare Center Administrator Name Role Phone Unavailable Primary Care Provider Unavailabl e Encounter Details Date Type Department Care Team (Late st Contact Info) Description 11/28/2018 Transcribed Document [facility] [place] [address] [place] [address] ProviderErika MD [address] [place] [address] Social History Tobacco Use [...] Historical ProviderMD - 11/28/2018 2:00 AM CDT Raw Material Handler Details Entered On: 11/28/2018 2:45 EDT Performed [...]
--- OUTSIDE RECORDS SUMMARY | 2025-03-02 15:31 | XMS_ITS | Encounter Summary ---
Author Organization [employer] ([place], [place], [place], [place]) Address [address] [place] [address] Care Team Providers Care Golf Professional Name Role Phone Unavailable Primary Care Provider Unavailabl e Encounter Details Date Type Department Care Team (Late st Contact Info) Description 11/21/2018 Transcribed Document [place] Family Medicine [address] [place] [address] ProviderErika MD [address] [place] [address] Social History Tobacco Use Types [...]
--- OUTSIDE RECORDS SUMMARY | 2025-03-02 15:32 | XMS_ITS | Encounter Summary ---
Author Organization [employer] ([place], [place], [place], [place]) Address [address] [place] [address] Care Team Providers Care Recycling Crew Supervisor Name Role Phone Unavailable Primary Care Provider Unavailabl e Encounter Details Date Type Department Care Team (Late st Contact Info) Description 11/26/2018 Transcribed Document [facility] Family Medicine [address] [place] [address] ProviderErika MD [address] [place] [address] Social History Tobacco Use Types [...] on 11/25/18) followed up with [facility] today regarding possible admission - plan [...] Care Management Note Report : LUCIE, ODALYS, Rn-Quality Specialist - 11/24/18 13:22:19 11/24/18 Andra from [facility] called to let me know they started a precert on this pt. CF ODALYS FAULKNER, Rn-Quality Specialist - 11/22/18 13:56:32 11/22/18 Pt has had a cva. Spoke to his Connie and son Sumeet at the bedside. Pt is lfacid on the left side. Discussed the need for STR and they decided on [facility]. Sent pt info via [employer] to [facility]. CF Documentation Status Complete : Yes ANGELA NAIR, Dermatology Teacher - 11/26/2018 11:16 EDT Electronically signed by Parveen [facility] Conversion Floating Labor Gang Supervisor Cerner at 12/08/2022 12:12 PM CDT documented in this encounter Plan of Treatment Not on file documented as of this encounter Visit Diagnoses Not on filedocumented in this encounter
--- OUTSIDE RECORDS SUMMARY | 2025-03-02 15:32 | XMS_ITS | Encounter Summary ---
Author Organization [employer] ([place], [place], [place], [place]) Address [address] [place] [address] Care Team Providers Care Microsoft Systems Engineer Name Role Phone Unavailable Primary Care Provider Unavailabl e Encounter Details Date Type Department Care Team (Late st Contact Info) Description 11/05/2018 Transcribed Document [facility] [place] Family Medicine [address] [place] [address] ProviderErika MD [address] [place] [address] Social History Tobacco Use Types [...] 11/05/2018 12:46 EDT Electronically signed by Parveen [facility] Conversion Back Seam Stitcher Cerner at 12/08/2022 12:20 PM CDT documented in this encounter Plan of Treatment Not on file documented as of this encounter Visit Diagnoses Not on filedocumented in this encounter
--- OUTSIDE RECORDS SUMMARY | 2025-03-02 15:32 | XMS_ITS | Encounter Summary ---
Author Organization [employer] ([place], [place], [place], [place]) Address [address] [place] [address] Care Team Providers Care Director Database Name Role Phone Unavailable Primary Care Provider Unavailabl e Encounter Details Date Type Department Care Team (Late st Contact Info) Description 11/05/2018 Transcribed Document [facility] Family Medicine [address] [place] [address] ProviderErika MD [address] [place] [address] Social History Tobacco Use [...] Source : Stated Height Entry Format : [place] Height, Feet : 6 ft(Converted to: 183 cm, 72 Inch) Height, Inches : 1 Inch(Converted to: 0 ft 1 Inch, 2.54 cm) Clinical Height : 185.42 cm Weight Source : Standing scale Weight Entry Format : [place] Clinical Dosing Weight : 77.27 kg Weight, Pounds : 170 lb Body Surface Area (BSA) : 2.01 m2 Body Mass Index : 22.5 kg/m2 [place] Body Weight : 79 kg SRIRAM PATEL [...] Any Spiritual/Cultural Needs or Requests : No Mandaen Preference : Sabianist SRIRAM PATEL RN - 11/05/2018 8:49 EDT [...] Obtained From : Patient Primary Language : [place] Island[place] Preferred Communication Mode : Verbal Communication Barrier [...] Scale Risk Level : 0-24 Low Risk [place] Fall Interventions : Adequate lighting, Bed in [...] the text rendition version of the form. Bath Coma Kavin Best Motor Response : Obey commands Kavin Best Verbal Response : Oriented Kavin Eye Opening Response : Spontaneous [place] Coma Score : 15 SRIRAM PATEL RN - 11/05/2018 8:49 EDT documented in this encounter Plan of Treatment Not on file documented as of this encounter Visit Diagnoses Not on filedocumented in this encounter
--- OUTSIDE RECORDS SUMMARY | 2025-03-02 15:32 | XMS_ITS | Encounter Summary ---
Author Organization [employer] ([place], [place], [place], [place]) Address [address] [place] [address] Care Team Providers Care Prints And Drawings Curator Name Role Phone Unavailable Primary Care Provider Unavailabl e Encounter Details Date Type Department Care Team (Late st Contact Info) Description 11/19/2018 Transcribed Document [facility] Cardiology [address] [place] [address] Lc Armendariz MD [address] [facility] [address] [place] [address] Social History Tobacco Use Types [...] mg, Oral, At Bedtime saliva substitutes: 1 [place], Buccal, Q2H, PRN: Other (See Comment) sodium [...] of motion, Normal strength. Integumentary: Warm, Dry, [place]. Neurologic: Alert, Oriented. Psychiatric: Cooperative, Appropriate mood & affect. Results Review NOV 19 04:08 138 105 21 / H 184 4.0 28 0.70 \ NOV 19 04:08 \ L 10.0 / H 15.0 L 101 / L 30.3 \ Radiology Results (Last 48 hours) [id number] -- 11/16/2018 06:45 CR Chest 1 Vw [...]
--- OUTSIDE RECORDS SUMMARY | 2025-03-02 15:32 | XMS_ITS | Encounter Summary ---
Author Organization [employer] ([place], [place], [place], [place]) Address [address] [place] [address] Care Team Providers Care Chicken Handler Name Role Phone Unavailable Primary Care Provider Unavailabl e Encounter Details Date Type Department Care Team (Late st Contact Info) Description 11/19/2018 Transcribed Document [facility] [place] [address] [place] [address] ProviderErika MD [address] [place], [place] [id number] Social History Tobacco Use Types Packs/Day Years [...] 1940 Associated Diagnoses: CAD (coronary artery disease), [place] coronary artery; Thrombocytopenia; Coronary artery disease; HTN [...] S1, S2, No edema. Integumentary: Warm, Dry, [place], incision is C/D/I, He did not follow [...] Prophylaxis: SCDs Diagnosis CAD (coronary artery disease), [place] coronary artery - Admitting, Medical. Thrombocytopenia - [...]
--- OUTSIDE RECORDS SUMMARY | 2025-03-02 15:32 | XMS_ITS | Encounter Summary ---
Author Organization [employer] ([place], [place], [place], [place]) Address [address] [place] [address] Care Team Providers Care Teacher Preschool Name Role Phone Unavailable Primary Care Provider Unavailabl e Encounter Details Date Type Department Care Team (Late st Contact Info) Description 11/05/2018 Transcribed Document [facility] Cardiology [address] [place] [address] Lc Armendariz MD [address] [facility] [address] [place] [address] Social History Tobacco Use Types [...] 1940 Associated Diagnoses: None Author: LC ARMENDARIZ MD-[facility] Basic Information PCP: Sanjuana Valdez Cardiology; Porfirio [...] All Problems Prostate stricture / SNOMED CT 62674632 / Confirmed HTN - Hypertension / SNOMED CT 7612941035 / Confirmed Hypothyroidism / SNOMED CT 45787759 / Confirmed Aneurysm / SNOMED CT 6840783659 / Confirmed Disorder of prostate / SNOMED CT 15416225 / Confirmed Thyroid disease / SNOMED CT 509819042 / Confirmed Restless legs syndrome / SNOMED CT 26624922 / Confirmed Cancer of skin of face / SNOMED CT 5394525723 / Confirmed At risk for sleep apnea / IMO 54814323 / Confirmed Resolved: Bladder stone / SNOMED CT 249747416 Histories No education data available. Social & Psychosocial Habits Alcohol 04/16/2017 Alcohol Use History, Social Habits No Alcohol Use in Last Twelve Months No Substance Abuse 04/16/2017 Recreational Drug Use History No Recreational Drug Use Last 12 Months No Tobacco 04/16/2017 Smoking Status Never smoker Past Medical History: Active HTN - Hypertension (8271388966) Hypothyroidism (79780950) Family History: Entire family history is negative. [...] of motion, Normal strength. Integumentary: Warm, Dry, [place]. Neurologic: Alert, Oriented. Psychiatric: Cooperative. Review / [...]
--- OUTSIDE RECORDS SUMMARY | 2025-03-02 15:32 | XMS_ITS | Encounter Summary ---
Author Organization [employer] ([place], [place], [place], [place]) Address [address] [place] [address] Care Team Providers Care Slot Ambassador Name Role Phone Unavailable Primary Care Provider Unavailabl e Encounter Details Date Type Department Care Team (Late st Contact Info) Description 11/05/2018 Transcribed Document [facility] [place] Family Medicine [address] [place] [address] ProviderErika MD [address] [place] [address] Social History Tobacco Use Types [...]
--- OUTSIDE RECORDS SUMMARY | 2025-03-02 15:32 | XMS_ITS | Encounter Summary ---
Author Organization [employer] ([place], [place], [place], [place]) Address [address] [place] [address] Care Team Providers Care Rides Attendant Name Role Phone Unavailable Primary Care Provider Unavailabl e Encounter Details Date Type Department Care Team (Late st Contact Info) Description 11/19/2018 Transcribed Document [facility] [place] Family Medicine [address] [place] [address] ProviderErika MD [address] [place] [address] Social History Tobacco Use Types [...] TF regimen to add fiber. EST NEEDS: 5575-7011 kcal (25-30kcal/kg), 95g pro (1.2g/kg) 1. Change TF to Jevity 1.5 @ 60 ml/hr + 1 bottle [id number] daily (Provides 2040 kcal; 99 gm pro) Goal: meet est needs 2. Monitor alertness and appropriateness for AUTOMOBILE BODY REPAIR CHIEF eval Goal: est safe po diet 3. Weigh pt 2x weekly Goal: no sig weight changes High Risk [address], LD - 11/19/2018 12:43 EDT Electronically signed by Parveen, [facility] Conversion Supervisor Telephone Clerks Cerner at 12/08/2022 12:18 PM CDT documented in this encounter Plan of Treatment Not on file documented as of this encounter Visit Diagnoses Not on filedocumented in this encounter
--- OUTSIDE RECORDS SUMMARY | 2025-03-02 15:32 | XMS_ITS | Encounter Summary ---
Author Organization [employer] ([place], [place], [place], [place]) Address [address] [place] [address] Care Team Providers Care Solutions Development Analyst Name Role Phone Unavailable Primary Care Provider Unavailabl e Encounter Details Date Type Department Care Team (Late st Contact Info) Description 11/27/2018 Transcribed Document [facility] [place] Family Medicine [address] [place] [address] ProviderErika MD [address] [place], [place] [id number] Social History Tobacco Use Types Packs/Day Years [...] 1940 Associated Diagnoses: CAD (coronary artery disease), [place] coronary artery; Thrombocytopenia; Coronary artery disease; HTN [...] swelling - improved today. Integumentary: Warm, Dry, [place], incision is C/D/I. Neurologic: Alert, Oriented, left [...] (Current Encounter/Past 24 Hours) PT 14.8 Second(s) CA 11/27/2018 07:36 PTT 55.8 Second(s) CA 11/26/2018 11:12 INR 1.4 CA 11/27/2018 07:36 . Impression and Plan Plan: [...] time of discharge- has sent information to [facility] -Transfer to [facility] 11/24/18 -POD#8 -Awaiting transfer to [facility] -Awaiting response from [facility] 11/25/18 -left upper extremity venous doppler - doppler this am positive for LUE DVT - will start coumadin and heparin bridge -awaiting [facility] 11/26/18 -Heparin drip and coumadin for LUE DVT Left arm swelling improved today INR 1.1 today, INR goal 2-3 Possibly transfer to [facility] this weekend 11/27/18: Left arm swelling continues to improve Continues on Coumadin and heparin bridge INR: 1.4 (1.1 yesterday) goal: 2 to [address] [facility] soon,? Tomorrow EF 55-60% per echo 11/16/18 DVT Prophylaxis: SCDs Diagnosis CAD (coronary artery disease), [place] coronary artery - Admitting, Medical. Thrombocytopenia - [...]
--- OUTSIDE RECORDS SUMMARY | 2025-03-02 15:32 | XMS_ITS | Encounter Summary ---
Author Organization [employer] ([place], [place], [place], [place]) Address [address] [place] [address] Care Team Providers Care Buzzle Buffer Name Role Phone Unavailable Primary Care Provider Unavailabl e Encounter Details Date Type Department Care Team (Late st Contact Info) Description 11/26/2018 Transcribed Document [facility] [place] Family Medicine [address] [place] [address] ProviderErika MD [address] [place], [place] [id number] Social History Tobacco Use Types Packs/Day Years [...] 1940 Associated Diagnoses: CAD (coronary artery disease), [place] coronary artery; Thrombocytopenia; Coronary artery disease; HTN [...] swelling - improved today. Integumentary: Warm, Dry, [place], incision is C/D/I. Neurologic: Alert, left sided [...] of discharge- CM has sent information to [facility] -Transfer to [facility] 11/24/18 -POD#8 -Awaiting transfer to [facility] -Awaiting response from [facility] 11/25/18 -left upper extremity venous doppler - doppler this am positive for LUE DVT - will start coumadin and heparin bridge -awaiting [facility] 11/26/18 -Heparin drip and coumadin for LUE DVT Left arm swelling improved today INR 1.1 today, INR goal 2-3 Possibly transfer to [facility] this weekend EF 55-60% per echo 11/16/18 DVT Prophylaxis: SCDs Diagnosis CAD (coronary artery disease), [place] coronary artery - Admitting, Medical. Thrombocytopenia - [...]
--- OUTSIDE RECORDS SUMMARY | 2025-03-02 15:32 | XMS_ITS | Encounter Summary ---
Author Organization [employer] ([place], [place], [place], [place]) Address [address] [place] [address] Care Team Providers Care Compound Worker Name Role Phone Unavailable Primary Care Provider Unavailabl e Encounter Details Date Type Department Care Team (Late st Contact Info) Description 11/15/2018 Transcribed Document [facility] Family Medicine [address] [place] [address] ProviderErika MD [address] [place] [address] Social History Tobacco Use Types [...] Source : Measured Height Entry Format : [place] Height, Feet : 6 ft(Converted to: 183 cm, 72 Inch) Height, Inches : 1 Inch(Converted to: 0 ft 1 Inch, 2.54 cm) Clinical Height : 185.42 cm Weight Source : Standing scale Weight Entry Format : [place] Clinical Dosing Weight : 79.23 kg Weight, Pounds : 174 lb Weight, Ounces : 5 oz Body Surface Area (BSA) : 2.03 m2 Body Mass Index : 23 kg/m2 [place] Body Weight : 79 kg ANGELA KEY [...] Ambulatory Legal Guardian : Spouse Support Person/Patient Infrastructure Manager : Yes Support Person/Pt Rep Name : Connie- Sumeet - son Support Person/Pt Rep Contact Information : [phone] home [phone] - cell Want Family/Rep/Phys Notified of Admit : No Emergency Contact #1 : Connie Emergency Contact #1 Emergency Contact #1 Relationship : Emergency Contact #2 : Sumeet Emergency Contact #2 Emergency Contact #2 Relationship : son Information Obtained From : Patient, Medical Record Primary Language : Pakistani Preferred Communication Mode : Verbal Communication Barrier [...] 11/15/2018 13:52 EDT Electronically signed by Parveen [facility] Conversion Medical Equipment Repair Technician Cerner at 12/08/2022 12:30 PM CDT documented in this encounter Plan of Treatment Not on file documented as of this encounter Visit Diagnoses Not on filedocumented in this encounter
--- OUTSIDE RECORDS SUMMARY | 2025-03-02 15:32 | XMS_ITS | Encounter Summary ---
Author Organization [employer] ([place], [place], [place], [place]) Address [address] [place] [address] Care Team Providers Care Accounts Adjustable Clerk Name Role Phone Unavailable Primary Care Provider Unavailabl e Encounter Details Date Type Department Care Team (Late st Contact Info) Description 11/05/2018 Transcribed Document [facility] [place] [address] [place] [address] ProviderErika MD [address] [place] [address] Social History Tobacco Use Types [...] you are awake and alert. ??? Take ztub-eyf-begygcg and prescription medicines only as told by [...] 05/31/2014 Document Revised: 01/12/2017 Document Reviewed: 11/29/2016 [employer] Interactive Patient Education ? 2017 [employer] Pulmonary Medicine Radial Site Care Introduction [...] 01/11/2014 Elsevier Interactive Patient Education ? 2017 [employer] documented in this encounter Plan of Treatment Not on file documented as of this encounter Visit Diagnoses Not on filedocumented in this encounter
--- OUTSIDE RECORDS SUMMARY | 2025-03-02 15:32 | XMS_ITS | Encounter Summary ---
Author Organization [employer] ([place], [place], [place], [place]) Address [address] [place] [address] Care Team Providers Care Oil Rigger Name Role Phone Unavailable Primary Care Provider Unavailabl e Encounter Details Date Type Department Care Team (Late st Contact Info) Description 11/05/2018 Transcribed Document [facility] [place] Family Medicine [address] [place] [address] ProviderErika MD [address] [place] [address] Social History Tobacco Use [...]
--- OUTSIDE RECORDS SUMMARY | 2025-03-02 15:32 | XMS_ITS | Encounter Summary ---
Author Organization [employer] ([place], [place], [place], [place]) Address [address] [place] [address] Care Team Providers Care Supervisor Type Bar And Segment Name Role Phone Unavailable Primary Care Provider Unavailabl e Encounter Details Date Type Department Care Team (Late st Contact Info) Description 11/26/[address] [facility] [place] Family Medicine [address] [place] [address] ProviderErika MD [address] [place] [address] Social History Tobacco Use Types [...] On: 11/26/2018 9:15 EDT by JOSSUE RODRÍGUEZ MODULAR SET CREW MEMBER General Information Visit Type, MODULAR SET CREW MEMBER : Re-Evaluation Patient Orders : MODULAR SET CREW MEMBER Fxoilver Limitation Documentation x 1 -111 Start: 11/25/18 10:29:25 EDT - SYSTEM, SYSTEM Speech Language Pathology Modified Barium Swallow Study - Start: 11/26/18 7:00:00 EDT, Routine, For Other (see special instructions), Dysphagia -111 GISSEL ZHANG PA MODULAR SET CREW MEMBER Fxnl Limitation Documentation - Start: 11/20/18 9:37:47 EDT, Continuous Order -111 SYSTEM, SYSTEM Speech Language Pathology Additional Tx - Start: 11/20/18 9:36:00 EDT, For Dysphagia, Continuous Order -111 Admission Date : Admission Date/Time: 11/16/18 06:45:00 Medical Chart Reviewed, MODULAR SET CREW MEMBER : Yes Personal Devices : Personal Devices No Devices Recorded Assistive Devices : Assistive Devices No Devices Recorded Active Diagnoses : 11/23/2018 00:00 Cerebral infarction, unspecified 11/17/2018 00:00 Atherosclerotic heart disease of [place] coronary artery without angina pectoris 11/17/2018 00:00 Essential (primary) hypertension 11/17/2018 00:00 Hypothyroidism, unspecified 11/17/2018 00:00 Nonrheumatic aortic (valve) insufficiency 11/17/2018 00:00 Restless legs syndrome 11/17/2018 00:00 Thoracic aortic aneurysm, without rupture 11/17/2018 00:00 Thrombocytopenia, unspecified 11/16/2018 00:00 Atherosclerotic heart disease of [place] coronary artery without angina pectoris 11/16/2018 00:00 Nonrheumatic aortic (valve) insufficiency 11/16/2018 00:00 Thoracic aortic aneurysm, without rupture Therapy Diagnosis, MODULAR SET CREW MEMBER : functional oropharyngeal skills Previous Speech/Language Evaluations : N/A Previous Swallow Precautions : Bedside 11/20 recommended instrumental prior to initiating PO diet, FEES recommended reg/nectar. Pt has participated in tx and is ready for a repeat study Previous Cognitive Evaluations : this admit Diet/Intake Prior to Current Admission : Regular/thin Diet/Intake During Current Admission : reg/thin following MBS Intubation Comment, MODULAR SET CREW MEMBER : 11/16-11/17 Vital Signs RTF : Vitals [...] 9:15 EDT General Status Patient Received Status, MODULAR SET CREW MEMBER : Up in chair Patient Left Status, MODULAR SET CREW MEMBER : Up in chair JOSSUE RODRÍGUEZ SLP [...] Consistencies Trialed MB/VFSS : Thin by straw, [place] by straw, Pudding JOSSUE RODRÍGUEZ, ERIC - 11/26/2018 9:15 EDT Swallow Impressions Impressions, MBSS/VFSS : Functional swallow for oral intake JOSSUE RODRÍGUEZ SLP - 11/26/2018 9:15 EDT 8 Point Penetration/Aspiration Grid Thin by Straw : 1 [place] by Straw : 1 Pudding : 1 [...] Discussed briefly with CTS PA. JOSSUE RODRÍGUEZ, MODULAR SET CREW MEMBER - 11/26/2018 9:15 EDT Swallow Recommendations Recommended Diet Type, SwRec : Regular Recommended Liquid Diet, SwRec : Thin Swallow Position, SwRec : Upright 90 degrees Supervision Level w/Meals, SwRec : Independent, modified Recommended Med Present, SwRec : As per nursing JOSSUE RODRÍGUEZ SLP - 11/26/2018 9:15 EDT Therapy Indication Assessment MODULAR SET CREW MEMBER Indicated : No MODULAR SET CREW MEMBER Not Indicated : At prior level of function JOSSUE RODRÍGUEZ SLP - 11/26/2018 9:15 EDT Swallow Plan/Goals Swallow LTG Grid MODULAR SET CREW MEMBER Nursing Home Goal #1 MODULAR SET CREW MEMBER Heart Doctor Goal #2 Swallow LTG : Establish safe oral diet without aspiration Improve swallowing function for oral intake Status : Goal met Goal met Date Met : 11/22/2018 EDT 11/26/2018 EDT JOSSUE RODRÍGUEZ SLP - 11/26/2018 9:15 EDT JOSSEU RODRÍGUEZ SLP - 11/26/2018 9:15 EDT Swallow [...] JOSSUE RODRÍGUEZ SLP - 11/26/2018 9:15 EDT MODULAR SET CREW MEMBER Education Assessment Grid 1 Aspiration : Needs further teaching Diet Recommendation : Needs further teaching JOSSUE RODRÍGUEZ SLP - 11/26/2018 9:[address] [facility] MODULAR SET CREW MEMBER Charges Modified Barium Swallow : 1 JOSSUE RODRÍGUEZ SLP - 11/26/2018 9:15 EDT documented in this encounter Plan of Treatment Not on file documented as of this encounter Visit Diagnoses Not on filedocumented in this encounter
--- OUTSIDE RECORDS SUMMARY | 2025-03-02 15:32 | XMS_ITS | Encounter Summary ---
Author Organization [employer] ([place], [place], [place], [place]) Address [address] [place] [address] Care Team Providers Care Linen Room Supervisor Name Role Phone Unavailable Primary Care Provider Unavailabl e Encounter Details Date Type Department Care Team (Late st Contact Info) Description 11/05/2018 Transcribed Document [facility] [place] [address] [place] [address] ProviderErika MD [address] [place] [address] Social History Tobacco Use Types Packs/Day Years Used Date Smoking Tobacco: Never Assessed Sex and Gender Information Value Date Recorded Sex Assigned at Not on file Legal Sex Male 5:03 PM CDT Gender Identity Not on file Sexual Orientation Not on file documented as of this encounter Miscellaneous Notes * Cerner Conversion Note - Erika ProviderMD - 11/05/2018 12:48 PM CDT [address] [address] Patient Copy Patient Information: Name: DOTTIE VILLASENOR Current Date: 11/05/2018 12:48:54 : 1940 Patient Address: [address] [place] [id number] Patient Attending Physician: LEYLA ARMENDARIZ MD-CAR Primary Care Provider: DEMETRICE ARMIJO NP-JORGE Primary Care Provider Discharge Diagnosis: Weight on Admission: 170 lb, 0 oz Comment: Follow-up Instructions: With: Address: When: JULIO CESAR GAXIOLA [address] [place] [address], [address] [address] Business (1) 1:30 PM Comments: Follow up with Dr. Gaxiola , surgeon, October at 1:30 pm With: Address: When: JULIO CESAR [address] [place] [address] [facility] (1) 1:15 PM Comments: Follow up with [...] you are awake and alert. ??? Take qwax-aqg-npkrhbr and prescription medicines only as told by [...] 05/31/2014 Document Revised: 01/12/2017 Document Reviewed: 11/29/2016 [employer] Interactive Patient Education ? 2017 [employer]. Radial Site Care Introduction Refer to this [...] 02/26/2006 Document Revised: 01/15/2017 Document Reviewed: 01/11/2014 [employer] Interactive Patient Education ? 2017 [employer]. CIGARETTE SMOKING: The facts are clear, cigarette smoking will shorten your life. Smoking can cause many illnesses along the way. As a healthcare provider, we recommend that you stop smoking. Assistance with quitting is available by contacting 8-219-ACFF-NOW. This is a free resource providing counseling, [...] Be sure to sign up for the [employer] patient portal, which gives you 16/03 access to your medical information ??? including these discharge instructions ??? using your computer, smartphone, or tablet. Just go to [employer] to get started. Questions? Call . [facility] would like to thank you for allowing us to assist you with your healthcare needs. HAMILTON Jarvis ROBERT H, (or customer development representative) have received the above patient education materials/instructions and have verbalized understanding: Patient Signature _ Date/Time Patient Lead Nitrate Processor Signature (if needed) Date/Time Clinician/Hospital Lead Nitrate Processor Signature (if needed) Date/Time Electronically signed by Parveen, [facility] Conversion Gear Shaver Set Up Operator Cerner at 12/08/2022 12:14 PM CDT documented in this encounter Plan of Treatment Not on file documented as of this encounter Visit Diagnoses Not on filedocumented in this encounter
--- OUTSIDE RECORDS SUMMARY | 2025-03-02 15:32 | XMS_ITS | Encounter Summary ---
Author Organization [employer] ([place], [place], [place], [place]) Address [address] [place] [address] Care Team Providers Care Police Sergeant Precinct Name Role Phone Unavailable Primary Care Provider Unavailabl e Encounter Details Date Type Department Care Team (Late st Contact Info) Description 11/27/2018 Transcribed Document [facility] [place] [address] [place] [address] ProviderErika MD [address] [place] [address] Social History Tobacco Use Types [...]
--- OUTSIDE RECORDS SUMMARY | 2025-03-02 15:32 | XMS_ITS | Encounter Summary ---
Author Organization [employer] ([place], [place], [place], [place]) Address [address] [place] [address] Care Team Providers Care Type Disk Quality Control Supervisor Name Role Phone Unavailable Primary Care Provider Unavailabl e Encounter Details Date Type Department Care Team (Late st Contact Info) Description 11/26/2018 Transcribed Document [facility] [place] Family Medicine [address] [place] [address] ProviderErika MD [address] [place] [address] Social History Tobacco Use Types [...]
--- OUTSIDE RECORDS SUMMARY | 2025-03-02 15:32 | XMS_ITS | Data Portability ---
Author Organization LIZ XIMENA Leavitt NEPHI CLOSED Address [address] [facility] [place] [address] Assessment Encounter Date Assessment Date Assessment LastModified by Organization Details LastModified Time 07/01/2023 07/01/2023 PREOPERATIVE DIAGNOSIS: Bladder calculus, 13 mm. POSTOPERATIVE DIAGNOSIS: Bladder calculus, 13 mm with BPH. PROCEDURE: Cystolitholapaxy with dilation of distal urethra. 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 SURGEON: Cong Villasenor MD ANESTHESIA: General. DRAINS: 18-Romanian urethral Michele catheter. INDICATIONS: Patient with previous [...] prepped and draped in normal fashion. A 22-Romanian cystoscopy sheath was introduced. Pendulous urethra revealed some difficulty introducing at the meatus. I then used the [place] sounds to dilate the distal urethra up to 24-Romanian. I then easily advanced down the urethra. [...] Lab urinalysis , dipstick, auto 2018 019 [facility], [address], [address] [place] [address], [address], 9 08:09:21 urinalysis , dipstick, auto 2018 019 [facility], [address], [address], [place], [address], 9 14:02:35 Referral None recorded. Procedures None recorded. Surgeries None recorded. Imaging None recorded. Medication Orders trospium ER 60 mg capsule,ex tended release [address] [facility] [address] [place], [address], 3 14:33:52 alfuzosin ER 10 mg tablet,ext ended release 24 hr 2018 019 [facility] [address], [address] [place], [address], 9 15:32:14 Patient TargetsNo targets recorded. Patient Instructions Encounter Date Encounter Id Patient Instructions Last Modified By Organization Details Last Modified Time 05/16/2019 [id number] At this point given the patient's comorbid [...] weeks. [email or web address] Not available 05/16/2019 14:03:13 06/27/2019 [id number] continue medical therapy [email or web address] Not available 06/29/2019 08:09:20 Reason for Referral None Reported. Results Created Date Observation Date Name Description Value Unit Range Abnormal Flag Note LastModifiedBy Organization Detail LastModifiedTime 06/27/2006/27/2019 urina lysis , dipst ick, auto Unknown Analyte Yellow Not Available [facility] Extended Services With [address], [place], [address], 06/27/2019 15:52:46 06/27/2006/27/2019 urina lysis , dipst ick, auto Unknown Analyte Clear Not Available [facility] Extended Services With [place] [address] [facility] [address], [place], [address], 06/27/2019 15:52:46 06/27/20 19 06/27/2019 urina lysis , dipst ick, auto Unknown Analyte 1.010 Not Available [facility] With [place] [address], [place], [address], 06/27/2019 15:52:46 06/27/20 19 06/27/2019 urina lysis , dipst ick, auto Unknown Analyte 1.003 - 1.035 Not Available [facility] [address], [place], [address], 06/27/2019 15:52:46 06/27/20 19 06/27/2019 urina lysis , dipst ick, auto Unknown Analyte 7.0 Not Available [facility] Extended Services With [place] [address] [facility] [address], [place], [address], 06/27/2019 15:52:46 06/27/20 19 06/27/2019 urina lysis , dipst ick, auto Unknown Analyte 5.0 - 8.0 Not Available [facility] [place] [facility] [address], [place], [address], 06/27/2019 15:52:46 06/27/20 19 06/27/2019 urina lysis , dipst ick, auto Unknown Analyte Negati ve Not Available [facility] [place] [facility] [address], [place], [address], 06/27/2019 15:52:46 06/27/20 19 06/27/2019 urina lysis , dipst ick, auto Unknown Analyte Negati ve Not Available [facility] [place] [facility] [address], [place], [address], 06/27/2019 15:52:46 06/27/20 19 06/27/2019 urina lysis , dipst ick, auto Unknown Analyte Negati ve Not Available [facility] [place] [facility] [address], [place], [address], 06/27/2019 15:52:46 06/27/2006/27/2019 urina lysis , dipst ick, auto Unknown Analyte Negati ve Not Available [facility] [place] [facility] [address], [place], [address], 06/27/2019 15:52:46 06/27/20 19 06/27/2019 urina lysis , dipst ick, auto Unknown Analyte Negtiv e Not Available [facility] [place] [facility] [address], [place], [address], 06/27/2019 15:52:46 06/27/20 19 06/27/2019 urina lysis , dipst ick, auto Unknown Analyte Negati ve - Trace Not Available [facility] [place] [facility] [address], [place], [address], 06/27/2019 15:52:46 06/27/20 19 06/27/2019 urina lysis , dipst ick, auto Unknown Analyte Normal Not Available [facility] [place] [facility] [address], [place], [address], 06/27/2019 15:52:46 06/27/20 19 06/27/2019 urina lysis , dipst ick, auto Unknown Analyte Normal Not Available [facility] [place] [facility] [address], [place], [address], 06/27/2019 15:52:46 06/27/20 19 06/27/2019 urina lysis , dipst ick, auto Unknown Analyte Negati ve Not Available [facility] [place] [facility] [address], [place], [address], 06/27/2019 15:52:46 06/27/20 19 06/27/2019 urina lysis , dipst ick, auto Unknown Analyte Negati ve Not Available [facility] [place] [facility] [address], [place], [address], 06/27/2019 15:52:46 06/27/20 19 06/27/2019 urina lysis , dipst ick, auto Unknown Analyte Normal Not Available [facility] [place] [facility] [address], [place], [address], 06/27/2019 15:52:46 06/27/20 19 06/27/2019 urina lysis , dipst ick, auto Unknown Analyte Normal - 1mg/dl Not Available [facility] [place] [facility] [address], [place], [address], 06/27/2019 15:52:46 06/27/2006/27/2019 urina lysis , dipst ick, auto Unknown Analyte Negati ve Not Available [facility] [place] [facility] [address], [place], [address], 06/27/2019 15:52:46 06/27/2006/27/2019 urina lysis , dipst ick, auto Unknown Analyte Negati ve Not Available [facility] [place] [facility] [address], [place], [address], 06/27/2019 15:52:46 06/27/20 19 06/27/2019 urina lysis , dipst ick, auto Unknown Analyte Negati ve Not Available [facility] [place] [facility] [address], [place], [address], 06/27/2019 15:52:46 06/27/2006/27/2019 urina lysis , dipst ick, auto Unknown Analyte Negati ve Not Available [facility] [place] [facility] [address], [place], [address], 06/27/2019 15:52:46 06/27/20 19 06/27/2019 urina lysis , dipst ick, auto Unknown Analyte Clean Catch Not Available [facility] [place] [facility] [address] [facility] [address], [place], [address], 06/27/2019 15:52:46 06/27/20 19 06/27/2019 urina lysis , dipst ick, auto Unknown Analyte Automa jamshid Not Available [facility] [place] [facility] [address] [facility] [address], [place], [address], 06/27/2019 15:52:46 05/16/20 19 05/16/2019 urina lysis , dipst ick, auto Unknown Analyte Yellow Not Available [facility] [place] [facility] [address] [facility] [address], [place], [address], 05/16/2019 13:23:16 05/16/20 19 05/16/2019 urina lysis , dipst ick, auto Unknown Analyte Clear Not Available [facility] [place] [facility] [address] [facility] [address], [place], [address], 05/16/2019 13:23:16 05/16/20 19 05/16/2019 urina lysis , dipst ick, auto Unknown Analyte 1.020 Not Available [facility] [address] [facility] [address], [place], [address], 05/16/2019 13:23:16 05/16/2005/16/2019 urina lysis , dipst ick, auto Unknown Analyte 1.003 - 1.035 Not Available [facility] [place] [facility] [address] [facility] [address], [place], [address], 05/16/2019 13:23:16 05/16/20 19 05/16/2019 urina lysis , dipst ick, auto Unknown Analyte 5.0 Not Available [facility] [place] [facility] [address] [facility] [address], [place], [address], 05/16/2019 13:23:16 05/16/20 19 05/16/2019 urina lysis , dipst ick, auto Unknown Analyte 5.0 - 8.0 Not Available [facility] [place] [facility] [address], [place], [address], 05/16/2019 13:23:16 05/16/20 19 05/16/2019 urina lysis , dipst ick, auto Unknown Analyte Negati ve Not Available [facility] [place] [facility] [address], [place], [address], 05/16/2019 13:23:16 05/16/20 19 05/16/2019 urina lysis , dipst ick, auto Unknown Analyte Negati ve Not Available [facility] [place] [facility] [address], [place], [address], 05/16/2019 13:23:16 05/16/20 19 05/16/2019 urina lysis , dipst ick, auto Unknown Analyte Negati ve Not Available [facility] [place] [facility] [address], [place], [address], 05/16/2019 13:23:16 05/16/20 19 05/16/2019 urina lysis , dipst ick, auto Unknown Analyte Negati ve Not Available [facility] [place] [facility] [address], [place], [address], 05/16/2019 13:23:16 05/16/20 19 05/16/2019 urina lysis , dipst ick, auto Unknown Analyte Negtiv e Not Available [facility] [place] [facility] [address], [place], [address], 05/16/2019 13:23:16 05/16/20 19 05/16/2019 urina lysis , dipst ick, auto Unknown Analyte Negati ve - Trace Not Available [facility] [place] [facility] [address], [place], [address], 05/16/2019 13:23:16 05/16/20 19 05/16/2019 urina lysis , dipst ick, auto Unknown Analyte Normal Not Available [facility] [address], [place], [address], 05/16/2019 13:23:16 05/16/20 19 05/16/2019 urina lysis , dipst ick, auto Unknown Analyte Normal Not Available [facility] [address], [place], [address], 05/16/2019 13:23:16 05/16/20 19 05/16/2019 urina lysis , dipst ick, auto Unknown Analyte 15 mg/dl (Sm) Not Available [facility] [address], [place], [address], 05/16/2019 13:23:16 05/16/20 19 05/16/2019 urina lysis , dipst ick, auto Unknown Analyte Negati ve Not Available [facility] [address], [place], [address], 05/16/2019 13:23:16 05/16/20 19 05/16/2019 urina lysis , dipst ick, auto Unknown Analyte Normal Not Available [facility] [address], [place], [address], 05/16/2019 13:23:16 05/16/20 19 05/16/2019 urina lysis , dipst ick, auto Unknown Analyte Normal - 1mg/dl Not Available [facility] [place] [facility] [address], [place], [address], 05/16/2019 13:23:16 05/16/20 19 05/16/2019 urina lysis , dipst ick, auto Unknown Analyte Negati ve Not Available [facility] [place] [facility] [address], [place], [address], 05/16/2019 13:23:16 05/16/20 19 05/16/2019 urina lysis , dipst ick, auto Unknown Analyte Negati ve Not Available [facility] [place] [facility] [address], [place], [address], 05/16/2019 13:23:16 05/16/20 19 05/16/2019 urina lysis , dipst ick, auto Unknown Analyte Negati ve Not Available [facility] [place] [facility] [address], [place], [address], 05/16/2019 13:23:16 05/16/20 19 05/16/2019 urina lysis , dipst ick, auto Unknown Analyte Negati ve Not Available [facility] [place] [facility] [address], [place], [address], 05/16/2019 13:23:16 05/16/20 19 05/16/2019 urina lysis , dipst ick, auto Unknown Analyte Clean Catch Not Available [facility] [place] [facility] [address], [place], [address], 05/16/2019 13:23:16 05/16/20 19 05/16/2019 urina lysis , dipst ick, auto Unknown Analyte Automa jamshid Not Available [facility] [place] [facility] [address], [place], [address], 05/16/2019 13:23:16 07/01/20 23 07/07/2023 STONE GERMAINE SIS composition SEE BELOW normal Calci um Oxala te Dihyd rate (Wedd ellit e) 15% Calci um Oxala te Monoh ydrat e (Whew ellit e) 70% Carbo stephany Apati te (Dahl lite) 15% See Note 1 Not Available [facility] [address] [place] [address], [address], 07/07/2023 18:14:54 07/01/2007/07/2023 STONE GERMAINE SIS weight [...] for clini long purpo ses. Not Available [facility] [address] [place], [address], 07/07/2023 18:14:54 Result Notes None recorded. Problems Name Problem SNOMED Code Status Onset Date Resolution Date Notes Provider Name and Address Organization Details Recorded Time Lower urinary tract symptoms due to benign prostatic hypertrophy 4250236866470 1 Active 2018 LEYLA SHAH JR, MD [address] [place] [address], [address] , [facility] 9 11:50:21 Increased frequency of urination 095342338 Active 2018 LEYLA SHAH JR, MD [address] [place] [address], [address], [facility] 9 20:29:31 Nocturia 012662785 Active 2018 LEYLA SHAH JR, MD [address] [place] [address], [address], [facility] 9 20:29:35 Problem Notes None recorded. Procedures Surgical History Date Name Laterality Status Provider Name and Address Organization Details Recorded Time 03/02/20 19 Post Void Residual; Ultrasound completed Rima Ivory [facility] 03/02/2019 11:46:22 04/16/20 17 MEATOTOMY, EXCEPT IN (SURG) completed CONG VILLASENOR MD [address] [place] [address], [address], [facility] 04/29/2017 10:19:09 Heart Surgery completed Deseriee Friendship [facility] 03/02/2019 11:35:52 cholecystectomy completed Mary [facility] 05/19/2023 16:19:30 Hernia Repair completed [facility] 05/19/2023 16:19:41 Prostate Surgery completed [facility] 05/19/2023 16:19:58 Urinary Bladder completed [facility] 05/19/2023 16:20:09 Imaging Results None recorded. Procedure [...] 2022 active son requests Rx changed to [facility] as pt will not be returning to [facility], so Rx called to new pharmacy [...] Updated DateTime 05/16/2019 185.42 cm 21.1 kg/m2 47196.78 g [facility] 05/16/2019 13:22:42 Date Recorded Body height Systolic And Diastolic Provider Name and Address Organization Details Last Updated DateTime 06/27/2019 185.42 cm 143/77 mm[facility]Hg[facility] 06/27/2019 15:52:00 Date Recorded Body height Body mass index (BMI) Body weight Provider Name and Address Organization Details Last Updated DateTime 07/08/2023 182.88 cm 29.8 kg/m2 82846.32 g John Emanuel [facility] 07/08/2023 13:21:37 Social History Question Answer Notes LastModified by Organizat ion Details LastModified Time Tobacco Smoking [facility] 03/02/2019 11:35:35 Marital Status Informatio n not available 03/02/2019 What Was The Date Of Your Most Recent Tobacco Screening? 03/02/2019 Information not available 10/11/2019 What Is Your Relationship Status? Information not available 05/19/2023 Has Tobacco Cessation Counseling Been Provided? No [email or web address] Information not available 05/19/2023 Sex: Unknown Functional Status Question Answer Note LastModified by Organizat ion Details LastModified Time Do you use any illicit or recreational drugs? No Information not available 05/19/2023 Do you or have you ever used any other forms of tobacco or nicotine? No [email or web address] Information not available 05/19/2023 What is your level of alcohol consumption? 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 Family History Relationship Description Onset Age of this Age Resolved Age Notes LastModified by Organization Details LastModified Time Unspecified Relation Family history of malignant neoplasm colon cancer [email or web address] Not available 05/19/2023 16:18:41 Unspecified Relation Kidney stone paulina Not available 05/2019 11:35:27 Medical History Condition Response Cardiac Disease Y Other Y Arthritis Y High Cholesterol Y High PSA Y Heart Attack ([place]) Y Cancer Y Urinary Tract Infection Y Stroke Y Hypertension Y Kidney Disease Y Past Encounters Encounter ID Performer Location Encounter Start Date Encounter Closed Date Diagnosis/Indication Diagnosis SNOMED-CT Code Diagnosis ICD10 Code Diagnosis Note [id number] LEYLA SHAH JR, MD [address] [place] [phone] 03/02/2019 11:00:32 03/07/2019 10:05:38 Lower urinary tract symptoms due to benign prostatic hypertrophy 1641658553 9101 N40.1 Increased frequency of urination 035415785 R35.0 Nocturia 290970778 R35.1 [id number] LEYLA SHAH JR, MD [facility] [address] [facility] [place] [phone] 05/16/2019 13:05:53 05/18/2019 08:09:55 Lower urinary tract symptoms due to benign prostatic hypertrophy 0933582920 9101 N40.1 [id number] LEYLA SHAH JR, MD [facility] EX[facility] [address] [facility] [place] [phone] 06/27/2019 14:58:19 06/30/2019 11:19:02 Lower urinary tract symptoms due to benign prostatic hypertrophy 6225363797 9101 N40.1 Nocturia 587594808 R35.1 [id number] MD JONES [facility]ONT[facility]Z [facility] [address] [place] [id number] 05/19/2023 14:49:48 05/19/2023 16:47:49 Urinary bladder stone 80672637 N21.0 follow upp 2 months , earlier if necessary [id number] CONG VILLASENOR MD SURGERY SCHEDULE [address] [place] [address] 07/01/2023 10:05:11 07/01/2023 10:05:30 [id number] MD JONES [facility]Z [facility] [address] [place], [place] [phone] 07/08/2023 13:06:58 07/08/2023 14:09:02 Urinary bladder stone 35895455 N21.0 follow upp 2 months , earlier if necessary, he will complete his antibiotic s Increased frequency of urination 802928166 R35.0 as above Health Concerns Section Related Observation LastModified by Organization Detai ls LastModified Time None Recorded Concern Status LastModified by Organization Details LastModified Time None Recorded Advance Directives Directive None Recorded Payers Insurance Date Sequence Insurance Name Policy Number Policy Mullen Covered Member ID Mullen Member ID Guarantor Name 05/19/2023 1 [place] Jorge Villasenor [id number] Jorge Pickering Fernando 09/06/2023 1 [employer] (MEDICARE REPLACEMENT/A DVANTAGE - PPO) Jorge Villasenor [id number] Jorge Villasenor Notes Date Note Type Note [...] of 9.3. LEYLA SHAH JR, MD [address] [place], [address], [facility] 05/16/2019 14:03:31 06/27/2019 text/html Patient is [...] is somewhat improved. LEYLA SHAH JR, MD [address] [place] [address], [phone], [facility] 06/29/2019 08:09:36 05/19/2023 text/html pt with [...] it. HE had a Resume treatment in [place] about 3 years ago[address] I reviewed ct scan disc for [facility] CONG VILLASENOR MD [address] [place] [address] [place], [address], [facility] 05/21/2023 11:32:44 07/08/2023 text/html Patient is [...] obstructing had recent cystoscopy. CONG VILLASENOR MD [facility] [place], [address], [facility] 07/08/2023 14:34:03
--- OUTSIDE RECORDS SUMMARY | 2025-03-02 15:32 | XMS_ITS | Encounter Summary ---
Author Organization [employer] ([place], [place], [place], [place]) Address [address] [place] [address] Care Team Providers Care Size Worker Name Role Phone Unavailable Primary Care Provider Unavailabl e Encounter Details Date Type Department Care Team (Late st Contact Info) Description 11/27/2018 Transcribed Document [facility] Family Medicine [address] [place] [address] ProviderErika MD [address] [place], [place] [id number] Social History Tobacco Use Types Packs/Day Years Used Date Smoking Tobacco: Never Assessed Sex and Gender Information Value Date Recorded Sex Assigned at Not on file Legal Sex Male 5:03 PM CDT Gender Identity Not on file Sexual Orientation Not on file documented as of this encounter Miscellaneous Notes * Cerner Conversion Note - Historical ProviderMD - 11/27/2018 2:00 AM CDT Registered Massage Therapist Details Entered On: 11/27/2018 3:00 EDT Performed [...]
--- OUTSIDE RECORDS SUMMARY | 2025-03-02 15:32 | XMS_ITS | Encounter Summary ---
Author Organization [employer] ([place], [place], [place], [place]) Address [address] [place] [address] Care Team Providers Care Fur Glazer Name Role Phone Unavailable Primary Care Provider Unavailabl e Encounter Details Date Type Department Care Team (Late st Contact Info) Description 11/27/2018 Transcribed Document [facility] [place] [address] [place] [address] ProviderErika MD [address] [place] [address] Social History Tobacco Use Types [...]
== END 2025-03-02 23:59 | disposition home or self-care (01) ==
LOC: RAD 15:27
PROVIDERS: PCP Internal Medicine; Visit Provider Internal Medicine
DX: M19.071 Primary osteoarthritis, right ankle and foot (principal); R93.6 Abnormal findings on diagnostic imaging of limbs; M20.41 Other hammer toe(s) (acquired), right foot; M20.42 Other hammer toe(s) (acquired), left foot; L98.491 Non-pressure chronic ulcer of skin of other sites limited to breakdown of skin
CPT/HCPCS: 73620

== ENCOUNTER 2025-04-27 13:00 | Outpatient (CLI) | payer MEDICARE, SELFPAY ==
--- OUTSIDE RECORDS SUMMARY | 2025-04-28 11:07 | XMS_ITS | Encounter Summary ---
Author Organization [employer] ([place], [place], [place], [place]) Address [address] [place] [address] Care Team Providers Care Chief Lifestyle Officer Name Role Phone Unavailable Primary Care Provider Unavailabl e Encounter Details Date Type Department Care Team (Late st Contact Info) Description 11/17/2018 Transcribed Document [facility] [place] [address] [place] [address] ProviderErika MD [address] [place] [address] Social History Tobacco Use Types [...] On: 11/17/2018 11:22 EDT by ODALYS FAULKNER Rn-Media ClerkPublic Address Servicer Note Documentation Status Complete : Yes ODALYS FAULKNER Rn-Media Clerk - 11/17/2018 11:22 EDT Patient History Information [...] when pt is awake. CF ODALYS FAULKNER, Rn-Media Clerk - 11/17/2018 11:22 EDT documented in this encounter Plan of Treatment Not on file documented as of this encounter Visit Diagnoses Not on filedocumented in this encounter
--- OUTSIDE RECORDS SUMMARY | 2025-04-28 11:07 | XMS_ITS | Encounter Summary ---
Author Organization [employer] ([place], [place], [place], [place]) Address [address] [place] [address] Care Team Providers Care Patient Care Assistant Name Role Phone Unavailable Primary Care Provider Unavailabl e Encounter Details Date Type Department Care Team (Late st Contact Info) Description 11/21/2018 Transcribed Document [facility] [place] [address] [place] [address] ProviderErika MD [address] [place] [address] Social History Tobacco Use Types [...] Source : Measured Height Entry Format : [place] Height, Feet : 6 ft Height, Inches [...]
--- OUTSIDE RECORDS SUMMARY | 2025-04-28 11:07 | XMS_ITS | Encounter Summary ---
Author Organization [employer] ([place], [place], [place], [place]) Address [address] [place] [address] Care Team Providers Care Right Of Way Clearer Name Role Phone Unavailable Primary Care Provider Unavailabl e Encounter Details Date Type Department Care Team (Late st Contact Info) Description 11/22/2018 Transcribed Document [facility] [place] [address] [place] [address] ProviderErika MD [address] [place] [address] Social History Tobacco Use Types [...] EDT by LEONEL GUZMAN Chaplain General Information Spiritism Preference : Taoism LEONEL GUZMAN Chaplain - 11/24/2018 2:35 EDT Spiritual Assessment Spiritual Assessment Comment/Summary Points : Prov. empathetic engaged listening: Pt. is Taoism, spouse & son visit pt. regularly, Spouse & Pt. in their late teens. Pt. enjoys reminiscing and story telling, Pt. looking forward to [facility] rehab noting he wants/needs to work hard, [...]
--- OUTSIDE RECORDS SUMMARY | 2025-04-28 11:07 | XMS_ITS | Encounter Summary ---
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 Respiratory Assessment Comment : Nasal cannula MAMTA SOLO, ERIC - 11/23/2018 14:12 EDT Visit Type, CYTOTECHNOLOGIST/HISTOTECHNOLOGIST : Initial evaluation Patient Orders : Speech Language Pathology Evaluation and Treatment -111 Start: 11/22/18 11:18:00 EDT, Routine, For Speech Language Cognitive Eval and Treat - JAY JAY CRESPO MD-DIANE CYTOTECHNOLOGIST/HISTOTECHNOLOGIST Fxnl Limitation Documentation - Start: 11/20/18 9:37:47 EDT, Continuous Order -111 SYSTEM, SYSTEM Speech Language Pathology Additional Tx - Start: 11/20/18 9:36:00 EDT, For Dysphagia, Continuous Order -111 Admission Date : Admission Date/Time: 11/16/18 06:45:00 Medical Chart Reviewed, CYTOTECHNOLOGIST/HISTOTECHNOLOGIST : Yes Personal Devices : Personal Devices No Devices Recorded Assistive Devices : Assistive Devices No Devices Recorded Active Diagnoses : 11/23/2018 00:00 Cerebral infarction, unspecified 11/17/2018 00:00 Atherosclerotic heart disease of [place] coronary artery without angina pectoris 11/17/2018 00:00 Essential (primary) hypertension 11/17/2018 00:00 Hypothyroidism, unspecified 11/17/2018 00:00 Nonrheumatic aortic (valve) insufficiency 11/17/2018 00:00 Restless legs syndrome 11/17/2018 00:00 Thoracic aortic aneurysm, without rupture 11/17/2018 00:00 Thrombocytopenia, unspecified 11/16/2018 00:00 Atherosclerotic heart disease of [place] coronary artery without angina pectoris 11/16/2018 00:00 [...] Gag Reflex Intact : Yes Intubation Comment, CYTOTECHNOLOGIST/HISTOTECHNOLOGIST : 11/16-11/17 Vital Signs RTF : Vitals [...] 13:41 EDT General Status Patient Received Status, CYTOTECHNOLOGIST/HISTOTECHNOLOGIST : Supine in bed Patient Left Status, CYTOTECHNOLOGIST/HISTOTECHNOLOGIST : Supine in bed MAMTA SOLO SLP [...] Oral Mechanism for Daily Living : Intact CYTOTECHNOLOGIST/HISTOTECHNOLOGIST Cough : Weak MAMTA SOLO SLP - [...] Responses are appropriate. Response Delayed : No AMMTA SOLO SLP - 11/23/2018 14:12 EDT Verbal [...] 14:12 EDT Evaluation Methods Types of Evaluation, CYTOTECHNOLOGIST/HISTOTECHNOLOGIST : Informal MAMTA SOLO SLP - 11/23/2018 14:12 EDT [facility] Impressions Impressions, Speech/Lang/Cog : Other: Mixed expressive/receptive communication impairment [facility] Overall Impressions : Communication evaluation [...] - 11/23/2018 14:12 EDT Therapy Indication Assessment CYTOTECHNOLOGIST/HISTOTECHNOLOGIST Indicated : Yes CYTOTECHNOLOGIST/HISTOTECHNOLOGIST Interdisciplinary Consultation Needs : No CYTOTECHNOLOGIST/HISTOTECHNOLOGIST Problem List : Impaired, Spoken Language Comprehension, Impaired, Spoken Language Expression MAMTA SOLO SLP - 11/23/2018 14:12 EDT LTG Lang/Comm/Cog LTG CYTOTECHNOLOGIST/HISTOTECHNOLOGIST Tax Accountant Goal 1 Tax Accountant Goal 2 Goals : Improved spoken language [...] MAMTA SOLO SLP - 11/23/2018 14:12 EDT CYTOTECHNOLOGIST/HISTOTECHNOLOGIST Education Assessment Grid 1 Evaluation Results : Verbalizes understanding MAMTA SOLO SLP - 11/23/2018 14:12 EDT CYTOTECHNOLOGIST/HISTOTECHNOLOGIST Education Assessment Grid 2 Treatment Plan : Verbalizes understanding MAMTA SOLO SLP - 11/23/2018 14:[address] [facility] Evaluation of Speech Production & Language : 1 MAMTA SOLO SLP - 11/23/2018 14:12 EDT Anticipated Discharge Needs, CYTOTECHNOLOGIST/HISTOTECHNOLOGIST Anticipated Discharge to OT : Rehab, high intensity Recommend Continued Therapy at Discharge : Yes MAMTA SOLO SLP - 11/23/2018 14:12 EDT documented in this encounter Plan of Treatment Not on file documented as of this encounter Visit Diagnoses Not on filedocumented in this encounter
--- OUTSIDE RECORDS SUMMARY | 2025-04-28 11:07 | XMS_ITS | Encounter Summary ---
Author Organization [employer] ([place], [place], [place], [place]) Address [address] [place] [address] Care Team Providers Care Shear Helper Name Role Phone Unavailable Primary Care Provider Unavailabl e Encounter Details Date Type Department Care Team (Late st Contact Info) Description 11/21/2018 Transcribed Document [facility] [place] [address] [place] [address] ProviderErika MD [address] [place] [address] Social History Tobacco Use Types [...] MRI to confirm. -continue asa, statin -Continue PT/OT/HEEL SEAT FITTER MACHINE -control blood pressure, aim for whatever is [...] Tab, Oral, At Bedtime saliva substitutes, 1 [place], Buccal, Q2H, PRN Senokot, 17.2 mg= 2 [...]
--- OUTSIDE RECORDS SUMMARY | 2025-04-28 11:07 | XMS_ITS | Encounter Summary ---
Author Organization [employer] ([place], [place], [place], [place]) Address [address] [place] [address] Care Team Providers Care Edge Molder Name Role Phone Unavailable Primary Care Provider Unavailabl e Encounter Details Date Type Department Care Team (Late st Contact Info) Description 11/17/2018 Transcribed Document [facility] [place] [address] [place] [address] ProviderErika MD [address] [place] [address] Social History Tobacco Use Types Packs/Day Years Used Date Smoking Tobacco: Never Assessed Sex and Gender Information Value Date Recorded Sex Assigned at Not on file Legal Sex Male 5:03 PM CDT Gender Identity Not on file Sexual Orientation Not on file documented as of this encounter Miscellaneous Notes * Cerner Conversion Note - Historical ProviderMD - 11/17/2018 2:00 AM CDT Bulb Assembler Details Entered On: 11/17/2018 7:39 EDT Performed [...] Alpesh Barraza RN - 11/17/2018 7:38 EDT documented in this encounter Plan of Treatment Not on file documented as of this encounter Visit Diagnoses Not on filedocumented in this encounter
--- OUTSIDE RECORDS SUMMARY | 2025-04-28 11:07 | XMS_ITS | Encounter Summary ---
Author Organization [employer] ([place], [place], [place], [place]) Address [address] [place] [address] Care Team Providers Care Duct Layer Helper Name Role Phone Unavailable Primary Care Provider Unavailabl e Encounter Details Date Type Department Care Team (Late st Contact Info) Description 11/22/2018 Transcribed Document [facility] [place] [address] [place] [address] ProviderErika MD [address] [place] [address] Social History Tobacco Use Types [...] Source : Measured Height Entry Format : [place] Height, Feet : 6 ft Height, Inches : 1 Inch Clinical Height : 185.42 cm Amanda Sigala RN - 11/22/2018 6:08 EDT Amanda Sigala RN - 11/22/2018 6:15 EDT documented in this encounter Plan of Treatment Not on file documented as of this encounter Visit Diagnoses Not on filedocumented in this encounter
--- OUTSIDE RECORDS SUMMARY | 2025-04-28 11:07 | XMS_ITS | Encounter Summary ---
Author Organization [employer] ([place], [place], [place], [place]) Address [address] [place] [address] Care Team Providers Care Electrical Systems Design Engineer Name Role Phone Unavailable Primary Care Provider Unavailabl e Encounter Details Date Type Department Care Team (Late st Contact Info) Description 11/22/2018 Transcribed Document [facility] [place] [address] [place] [address] ProviderErika MD [address] [place], [place] [id number] Social History Tobacco Use Types Packs/Day Years [...] 1940 Associated Diagnoses: CAD (coronary artery disease), elem coronary artery; Thrombocytopenia; Coronary artery disease; HTN [...] S1, S2, No edema. Integumentary: Warm, Dry, [place], incision is C/D/I. Neurologic: Alert, left sided [...] Prophylaxis: SCDs Diagnosis CAD (coronary artery disease), elem coronary artery - Admitting, Medical. Thrombocytopenia - Working, Medical. Coronary artery disease - Discharge, Medical. HTN (hypertension) - Pre-Op Diagnosis, Medical. Hypothyroidism - Pre-Op Diagnosis, Medical. Aortic insufficiency - Admitting, Medical. Aortic insufficiency - Discharge, Medical. RLS (restless legs syndrome) - Pre-Op Diagnosis, Medical. Thoracic ascending aortic aneurysm - Admitting, Medical. Thoracic ascending aortic aneurysm - Discharge, Medical. Electronically signed by Parveen, [facility] Conversion Chief Procurement Officer Cerner at 12/08/2022 12:25 PM CDT documented in this encounter Plan of Treatment Not on file documented as of this encounter Visit Diagnoses Not on filedocumented in this encounter
--- OUTSIDE RECORDS SUMMARY | 2025-04-28 11:07 | XMS_ITS | Encounter Summary ---
Author Organization [employer] ([place], [place], [place], [place]) Address [address] [place] [address] Care Team Providers Care Mobile Sales Technician Name Role Phone Unavailable Primary Care Provider Unavailabl e Encounter Details Date Type Department Care Team (Late st Contact Info) Description 11/22/2018 Transcribed Document [facility] [place] [address] [place] [address] ProviderErika MD [address] [place] [address] Social History Tobacco Use [...] at goal rate. Did have BM yesterday. KINDER TEACHER okayed pt for po diet this am- follow up after breakfast and pt had eating 50% of meal. Pt stated he would enjoy ensure as well. Spoke with RN about observing 1-2 more meals before removing corpak and speaking with MD as well. 11/18: Check on: Pt is on Osmolite 1.5 @ 50m/hr + 1 [id number] daily advancing toward goal of 60ml/hr + 1 [id number] daily. No KINDER TEACHER consult noted, discussed if any concern for [...] Support: Jevity 1.5 @ 60ml/hr + 1 [id number] daily, HT: 185cm (6'1) ADMIT WT: 79kg/174# Current Wt: 81.6kg (11/17), 82.4kg (11/18) , 84.3 kg (11/22) BMI: 23 IBW: 79kg/100% EST NEEDS: 7667-8169 kcal (25-30kcal/kg), 95g pro (1.2g/kg) DAVION GREEN [...] 11/22/2018 12:04 EDT Electronically signed by Parveen, [facility] Conversion Plunger Shovel Operator Cerner at 12/08/2022 12:11 PM CDT documented in this encounter Plan of Treatment Not on file documented as of this encounter Visit Diagnoses Not on filedocumented in this encounter
--- OUTSIDE RECORDS SUMMARY | 2025-04-28 11:07 | XMS_ITS | Encounter Summary ---
Author Organization [employer] ([place], [place], [place], [place]) Address [address] [place] [address] Care Team Providers Care Embroidery Finisher Name Role Phone Unavailable Primary Care Provider Unavailabl e Encounter Details Date Type Department Care Team (Late st Contact Info) Description 11/22/2018 Transcribed Document [facility] [place] [address] [place] [address] ProviderErika MD [address] [place] [address] Social History Tobacco Use Types [...] On: 11/22/2018 13:55 EDT by ODALYS FAULKNER Rn-Engineering OfficerContract Associate Manager Note Care Management Note : 11/22/18 Pt has had a cva. Spoke to his Connie and son Sumeet at the bedside. Pt is lfacid on the left side. Discussed the need for STR and they decided on [facility]. Sent pt info via [employer] to [facility]. CF Documentation Status Complete : Yes ODALYS FAULKNER Rn-Engineering Officer - 11/22/2018 13:55 EDT Patient History Emergency Contact #1 : Connie Emergency Contact #1 (H) Emergency Contact #1 Relationship : Emergency Contact #2 : Sheridan Fernando Emergency Contact #2 (C) Emergency Contact #2 Relationship : daughter Living Situation : Home Patient Lives With : Spouse Current Home Treatments : None Patient History Note Report : ODALYS FAULKNER Rn-Engineering Officer - 11/17/18 11:25:13 11/17/18 Pt sleeping and [...] when pt is awake. CF ODALYS FAULKNER Rn-Engineering Officer - 11/22/2018 13:55 EDT Electronically signed by [facility] Conversion Warranty Coordinator Cerner at 12/08/2022 12:32 PM CDT documented in this encounter Plan of Treatment Not on file documented as of this encounter Visit Diagnoses Not on filedocumented in this encounter
--- OUTSIDE RECORDS SUMMARY | 2025-04-28 11:07 | XMS_ITS | Encounter Summary ---
Author Organization [employer] ([place], [place], [place], [place]) Address [address] [place] [address] Care Team Providers Care Ic Engineer Name Role Phone Unavailable Primary Care Provider Unavailabl e Encounter Details Date Type Department Care Team (Late st Contact Info) Description 11/21/2018 Transcribed Document [facility] Family Medicine [address] [place] [address] ProviderErika MD [address] [place] [address] Social History Tobacco Use Types Packs/Day Years Used Date Smoking Tobacco: Never Assessed Sex and Gender Information Value Date Recorded Sex Assigned at Not on file Legal Sex Male 5:03 PM CDT Gender Identity Not on file Sexual Orientation Not on file documented as of this encounter Miscellaneous Notes * Cerner Conversion Note - Historical ProviderMD - 11/21/2018 2:00 AM CDT Pulley Mortiser Operator Details Entered On: 11/21/2018 1:40 EDT Performed [...] SHERRIE FUENTES, RN - 11/21/2018 1:40 EDT documented in this encounter Plan of Treatment Not on file documented as of this encounter Visit Diagnoses Not on filedocumented in this encounter
--- OUTSIDE RECORDS SUMMARY | 2025-04-28 11:07 | XMS_ITS | Encounter Summary ---
Author Organization [email or web address] ([place], [place], [place], [place]) Address [address] [place] [address] Care Team Providers Care Coffee Supervisor Name Role Phone Unavailable Primary Care Provider Unavailabl e Encounter Details Date Type Department Care Team (Late st Contact Info) Description 11/22/2018 Transcribed Document [facility] Family Medicine [address] [place] [address] ProviderErika MD [address] [id number] Social History Tobacco Use Types Packs/Day Years [...] of Systems Respiratory - wearing 02 by NE GI - has NG tube. Objective Vitals [...] Tab, Oral, At Bedtime saliva substitutes, 1 [place], Buccal, Q2H, PRN Senokot, 17.2 mg= 2 [...]
--- OUTSIDE RECORDS SUMMARY | 2025-04-28 11:07 | XMS_ITS | Encounter Summary ---
Author Organization [employer] ([place], [place], [place], [place]) Address [address] [place] [address] Care Team Providers Care Manager Human Resources Name Role Phone Unavailable Primary Care Provider Unavailabl e Encounter Details Date Type Department Care Team (Late st Contact Info) Description 11/22/2018 Transcribed Document [facility] [place] [address] [place] [address] ProviderErika MD [address] [place] [address] Social History Tobacco Use Types Packs/Day Years Used Date Smoking Tobacco: Never Assessed Sex and Gender Information Value Date Recorded Sex Assigned at Not on file Legal Sex Male 5:03 PM CDT Gender Identity Not on file Sexual Orientation Not on file documented as of this encounter Miscellaneous Notes * [employer]ner Conversion Note - Historical ProviderMD - 11/22/2018 12:18 PM CDT BREAD STACKER Attempt to Treat Entered On: 11/22/2018 12:20 EDT Performed On: 11/22/2018 12:18 EDT by JOSSUE RODRÍGUEZ SLP Attempt to Treat Inability to Treat Comment : New orders received from Neurologist. ST is currently following pt for dysphagia. Will await neuro dx for full communication JOSSUE Mccarthy, BREAD STACKER - 11/22/2018 12:18 EDT Electronically signed by Christina S[employer] Executive Security Cerner at 12/08/2022 12:12 PM CDT documented in this encounter Plan of Treatment Not on file documented as of this encounter Visit Diagnoses Not on filedocumented in this encounter
--- OUTSIDE RECORDS SUMMARY | 2025-04-28 11:07 | XMS_ITS | Encounter Summary ---
Author Organization [employer] ([place], [place], [place], [place]) Address [address] [place] [address] Care Team Providers Care Rotary Cutter Operator Name Role Phone Unavailable Primary Care Provider Unavailabl e Encounter Details Date Type Department Care Team (Late st Contact Info) Description 11/17/2018 Transcribed Document [facility] Cardiology [address] [place] [address] Lc Armendariz MD [address] [facility] [address] [place] [address] Social History Tobacco Use Types [...] MD-CAR Basic Information PCP: Sanjuana Espino MD Manager Multimedia: Porfirio Combs MD Chief Complaint s/p bioprosthetic [...] list: All Problems Aneurysm, thoracic aortic / 0923716495 / Confirmed Aortic valve insufficiency / 072633438 / Confirmed Arthritis / 7545329 / Confirmed At risk for sleep apnea / 25385154 / Confirmed CAD (coronary artery disease) / 84397742 / Confirmed Disorder of prostate ( enlarged) / 27379626 / Confirmed HTN - Hypertension / 7442163060 / Confirmed Hypothyroidism / 99486882 / Confirmed Frequent urination / 431693409 / Confirmed Cancer of skin of face / 5391433842 / Confirmed Nocturia / 630141788 / Confirmed Restless legs syndrome / 96062438 / Confirmed Prostate stricture / 93005930 / Confirmed Resolved: Bladder stone / 001005399 Canceled: Aneurysm / 2887726869 Canceled: Thyroid disease / 067298602 Histories No education data available. Social & Psychosocial Habits Alcohol 04/16/2017 Alcohol Use History, Social Habits No Alcohol Use in Last Twelve Months No Home/Environment 11/15/2018 Lives with: Spouse Living situation: Home/Independent Substance Abuse 04/16/2017 Recreational Drug Use History No Recreational Drug Use Last 12 Months No Tobacco 04/16/2017 Smoking Status Never smoker Past Medical History: Active HTN - Hypertension (2129100168) Hypothyroidism (66827749) Family History: Entire family history is negative. [...] No tenderness, No swelling. Integumentary: Warm, Dry, [place]. Neurologic: Not alert, Not oriented. Psychiatric: not [...] 11/17/2018 05:17 Radiology Results (Last 48 hours) [id number] -- 11/16/2018 06:45 CR Chest 2 Vws [...] Anasogastric tube extends below the diaphragm. Left-sided [place]-Ganzcatheter tip is in the left main pulmonary [...] day.FINDINGS: The heart is normal in size. [place]-Jovanna catheter tips in theleft pulmonary artery. There [...]
--- OUTSIDE RECORDS SUMMARY | 2025-04-28 11:07 | XMS_ITS | Encounter Summary ---
Author Organization [employer] ([place], [place], [place], [place]) Address [address] [place] [address] Care Team Providers Care Unstacker Name Role Phone Unavailable Primary Care Provider Unavailabl e Encounter Details Date Type Department Care Team (Late st Contact Info) Description 11/17/2018 Transcribed Document [facility] [place] [address] [place] [address] ProviderErika MD [address] [place] [address] Social History Tobacco Use Types [...] Source : Measured Height Entry Format : [place] Height, Feet : 6 ft Height, Inches [...]
--- OUTSIDE RECORDS SUMMARY | 2025-04-28 11:07 | XMS_ITS | Encounter Summary ---
Author Organization [employer] ([place], [place], [place], [place]) Address [address] [place] [address] Care Team Providers Care Defence Intelligence Analyst Name Role Phone Unavailable Primary Care Provider Unavailabl e Encounter Details Date Type Department Care Team (Late st Contact Info) Description 11/21/2018 Transcribed Document [facility] [place] [address] [place] [address] ProviderErika MD [address] [place], [place] [id number] Social History Tobacco Use Types Packs/Day Years [...] Bedtime, Routine HEENT saliva substitutes - 1 [place], Buccal, Liquid, Q2H, PRN for Other (See [...] Radiology results Radiology Results (Last 48 hours) [id number] -- 11/16/2018 06:45 CR Chest 1 Vw Portable (11/20/2018 04:12) Result: PORTABLE CHEST 11/20/2018 4:00 AMHISTORY: Shortness of breathCOMPARISON: 1 day priorFINDINGS: A [place]-Jovanna catheter tip terminates in the SVC. The [place]-Ganzcatheter has been retracted. The cardiac silhouette is [...]
--- OUTSIDE RECORDS SUMMARY | 2025-04-28 11:07 | XMS_ITS | Encounter Summary ---
Author Organization [employer] ([place], [place], [place], [place]) Address [address] [place] [address] Care Team Providers Care Frame Bender Name Role Phone Unavailable Primary Care Provider Unavailabl e Encounter Details Date Type Department Care Team (Late st Contact Info) Description 11/22/2018 Transcribed Document [facility] [place] [address] [place] [address] ProviderErika MD [address] [place], [place] [id number] Social History Tobacco Use Types Packs/Day Years Used Date Smoking Tobacco: Never Assessed Sex and Gender Information Value Date Recorded Sex Assigned at Not on file Legal Sex Male 5:03 PM CDT Gender Identity Not on file Sexual Orientation Not on file documented as of this encounter Miscellaneous Notes * Cerner Conversion Note - Historical ProviderMD - 11/22/2018 2:00 AM CDT Internet Database Specialist Details Entered On: 11/22/2018 6:09 EDT Performed [...]
--- OUTSIDE RECORDS SUMMARY | 2025-04-28 11:07 | XMS_ITS | Encounter Summary ---
Author Organization [employer] ([place], [place], [place], [place]) Address [address] [place] [address] Care Team Providers Care Primary Education Professor Name Role Phone Unavailable Primary Care Provider Unavailabl e Encounter Details Date Type Department Care Team (Late st Contact Info) Description 11/22/2018 Transcribed Document [facility] [place] [address] [place] [address] ProviderErika MD [address] [place] [address] Social History Tobacco Use Types [...] On: 11/22/2018 9:23 EDT by JOSSUE RODRÍGUEZ NETWORK OPERATIONS MANAGER General Information Visit Type, NETWORK OPERATIONS MANAGER : Re-Evaluation Patient Orders : NETWORK OPERATIONS MANAGER Fxnl Limitation Documentation x 1 -111 Start: 11/22/18 8:22:14 EDT - SYSTEM, SYSTEM FEES - Start: 11/22/18 8:21:00 EDT, Routine, For Swallow Eval and Treat -111 MARILE ROBLES PA NETWORK OPERATIONS MANAGER Fxnl Limitation Documentation - Start: 11/20/18 9:37:47 EDT, Continuous Order -111 SYSTEM, SYSTEM Speech Language Pathology Additional Tx - Start: 11/20/18 9:36:00 EDT, For Dysphagia, Continuous Order -111 Admission Date : Admission Date/Time: 11/16/18 06:45:00 Medical Chart Reviewed, NETWORK OPERATIONS MANAGER : Yes Personal Devices : Personal Devices No Devices Recorded Assistive Devices : Assistive Devices No Devices Recorded Active Diagnoses : 11/17/2018 00:00 Atherosclerotic heart disease of [place] coronary artery without angina pectoris 11/17/2018 00:00 Essential (primary) hypertension 11/17/2018 00:00 Hypothyroidism, unspecified 11/17/2018 00:00 Nonrheumatic aortic (valve) insufficiency 11/17/2018 00:00 Restless legs syndrome 11/17/2018 00:00 Thoracic aortic aneurysm, without rupture 11/17/2018 00:00 Thrombocytopenia, unspecified 11/16/2018 00:00 Atherosclerotic heart disease of [place] coronary artery without angina pectoris 11/16/2018 00:00 Nonrheumatic aortic (valve) insufficiency 11/16/2018 00:00 Thoracic aortic aneurysm, without rupture Therapy Diagnosis, NETWORK OPERATIONS MANAGER : normal oral skills, moderate pharyngeal dysphagia Previous Speech/Language Evaluations : N/A Previous Swallow Precautions : Bedside 11/20 recommended instrumental prior to initiating PO diet Previous Cognitive Evaluations : N/A Diet/Intake Prior to Current Admission : Regular/thin Diet/Intake During Current Admission : NPO with TF via [place] Gag Reflex Intact : Yes Intubation Comment, NETWORK OPERATIONS MANAGER : 11/16-11/17 Vital Signs RTF : Vitals [...] 9:23 EDT General Status Patient Received Status, NETWORK OPERATIONS MANAGER : Long sitting in bed Patient Left Status, NETWORK OPERATIONS MANAGER : Long sitting in bed JOSSUE RODRÍGUEZ [...] Consistencies Trialed FEES : Thin by straw, [place] by straw, Pureed, Regular solids JOSSUE RODRÍGUEZ SLP - 11/22/2018 9:23 EDT Swallow Impressions Impressions, FEES : Pharyngeal dysphagia JOSSUE RODRÍGUEZ SLP - 11/22/2018 9:23 EDT 8 Point Penetration/Aspiration Grid Thin by Straw : 8 [place] by Straw : 1 Pureed : 1 Regular Solids : 1 JSOSUE RODRÍGUEZ SLP - 11/22/2018 9:23 EDT Swallow [...] : Regular Recommended Liquid Diet, SwRec : [place] Feeding Presentation Style, SwRec : No restrictions Swallow Position, SwRec : Upright 90 degrees Supervision Level w/Meals, SwRec : Assist, standby Recommended Med Present, SwRec : Crushed, Whole, With nectar, With puree/pudding, No medications with water Recommended Exam, Sw Rec : FEES Repeat Swallow Exam Timeframe : 3-6 days JOSSUE RODRÍGUEZ SLP - 11/22/2018 9:34 EDT Therapy Indication Assessment NETWORK OPERATIONS MANAGER Indicated : Yes NETWORK OPERATIONS MANAGER Problem List : Impaired, Swallowing JOSSUE RODRÍGUEZ SLP - 11/22/2018 9:34 EDT Swallow Plan/Goals Treatment Frequency, NETWORK OPERATIONS MANAGER : 5 times per wk Treatment Plan Est w/Pt/Caregvr, Swallow : Yes JOSSUE RODRÍGUEZ SLP - 11/22/2018 9:34 EDT Swallow LTG Grid NETWORK OPERATIONS MANAGER Crew Member Goal #1 NETWORK OPERATIONS MANAGER Crew Member Goal #2 Swallow LTG : Establish safe oral diet without aspiration Improve swallowing function for oral intake Status : Goal met Initial Date Met : 11/22/2018 EDT JOSSUE RODRÍGUEZ SLP - 11/22/2018 9:34 EDT JSOSUE RODRÍGUEZ SLP - 11/22/2018 9:34 EDT Swallow [...] JOSSUE RODRÍGUEZ SLP - 11/22/2018 9:34 EDT NETWORK OPERATIONS MANAGER Education Assessment Grid 1 Aspiration : Needs further teaching Diet Recommendation : Needs further teaching Dysphagia : Needs further teaching Free Water Protocol : Needs further teaching Ice Chips : Needs further teaching Oral Care : Needs further teaching JOSSUE RODRÍGUEZ SLP - 11/22/2018 9:34 EDT NETWORK OPERATIONS MANAGER Education Assessment Grid 2 Speech Language Pathology Treatment Plan : Needs further teaching JOSSUE RODRÍGUEZ SLP - 11/22/2018 9:[address] [facility] NETWORK OPERATIONS MANAGER Charges FEES : 1 JOSSUE RODRÍGUEZ SLP - 11/22/2018 9:34 EDT documented in this encounter Plan of Treatment Not on file documented as of this encounter Visit Diagnoses Not on filedocumented in this encounter
--- OUTSIDE RECORDS SUMMARY | 2025-04-28 11:08 | XMS_ITS | Encounter Summary ---
Author Organization [employer] ([place], [place], [place], [place]) Address [address] [place] [address] Care Team Providers Care Benefits Consultant Name Role Phone Unavailable Primary Care Provider Unavailabl e Encounter Details Date Type Department Care Team (Late st Contact Info) Description 11/23/2018 Transcribed Document [facility] [place] [address] [place] [address] ProviderErika MD [address] [place] [address] Social History Tobacco Use Types [...] unspecified 11/17/2018 00:00 Atherosclerotic heart disease of [place] coronary artery without angina pectoris 11/17/2018 00:00 Essential (primary) hypertension 11/17/2018 00:00 Hypothyroidism, unspecified 11/17/2018 00:00 Nonrheumatic aortic (valve) insufficiency 11/17/2018 00:00 Restless legs syndrome 11/17/2018 00:00 Thoracic aortic aneurysm, without rupture 11/17/2018 00:00 Thrombocytopenia, unspecified 11/16/2018 00:00 Atherosclerotic heart disease of [place] coronary artery without angina pectoris 11/16/2018 00:00 [...] AUDREY GRANDE OTR/Ginny - 11/30/2018 15:25 EDT Power Tong Operator Goals, OT Self Feeding LTG Grid Goal [...] Family present. MaxAx2 chair to bed transfer, BARBER SHOP MANAGER. RN assisting. Pt's L UE very weak. [...] EDT Electronically signed by Christina Saini Conversion Type Disk Quality Control Supervisor Cerner at 12/12/2022 8:26 AM CDT documented in this encounter Plan of Treatment Not on file documented as of this encounter Visit Diagnoses Not on filedocumented in this encounter
--- OUTSIDE RECORDS SUMMARY | 2025-04-28 11:08 | XMS_ITS | Encounter Summary ---
Author Organization [employer] ([place], [place], [place], [place]) Address [address] [place] [address] Care Team Providers Care Director Compliance Name Role Phone Unavailable Primary Care Provider Unavailabl e Encounter Details Date Type Department Care Team (Late st Contact Info) Description 11/29/2018 Transcribed Document [facility] [place] [address] [place] [address] ProviderErika MD [address] [place] [address] Social History Tobacco Use Types [...]
--- OUTSIDE RECORDS SUMMARY | 2025-04-28 11:08 | XMS_ITS | Encounter Summary ---
Author Organization [employer] ([place], [place], [place], [place]) Address [address] [place] [address] Care Team Providers Care Cane Furniture Maker Name Role Phone Unavailable Primary Care Provider Unavailabl e Encounter Details Date Type Department Care Team (Late st Contact Info) Description 11/29/2018 Transcribed Document [facility] [place] [facility] [place] [address] ProviderErika MD [address] [id number] Social History Tobacco Use Types Packs/Day Years [...] (EDT) (11/29/18 14:59:15 EDT) Electronically signed by Christina Saini Conversion Processing Talc And Borate Supervisor Cerner at 12/08/2022 12:28 PM CDT documented in this encounter Plan of Treatment Not on file documented as of this encounter Visit Diagnoses Not on filedocumented in this encounter
--- OUTSIDE RECORDS SUMMARY | 2025-04-28 11:08 | XMS_ITS | Encounter Summary ---
Author Organization [employer] ([place], [place], [place], [place]) Address [address] [place] [address] Care Team Providers Care Grades 7 And 8 Visiting Teacher Name Role Phone Unavailable Primary Care Provider Unavailabl e Encounter Details Date Type Department Care Team (Late st Contact Info) Description 11/22/2018 Transcribed Document [facility] [place] [address] [place] [address] ProviderErika MD [address] [place] [address] Social History Tobacco Use Types [...] D Community Services : Outpt Cardiac Rehab [facility] [phone] F [phone] They will call pt w/ appt time. SUZANNA HAINES, Service Electrician - 11/30/2018 15:30 EDT Driving After Discharge : Do not drive, Other: No driving or operating heavy machinery until released by a physician. JAY JAY CRESPO MD-NEU - 11/22/2018 11:16 EDT documented in this encounter Plan of Treatment Not on file documented as of this encounter Visit Diagnoses Not on filedocumented in this encounter
--- OUTSIDE RECORDS SUMMARY | 2025-04-28 11:08 | XMS_ITS | Encounter Summary ---
Author Organization [employer] ([place], [place], [place], [place]) Address [address] [place] [address] Care Team Providers Care Best Worker Name Role Phone Unavailable Primary Care Provider Unavailabl e Encounter Details Date Type Department Care Team (Late st Contact Info) Description 11/29/2018 Transcribed Document [facility] [place] [address] [place] [address] ProviderErika MD [address] [place], [place] [id number] Social History Tobacco Use Types Packs/Day Years Used Date Smoking Tobacco: Never Assessed Sex and Gender Information Value Date Recorded Sex Assigned at Not on file Legal Sex Male 5:03 PM CDT Gender Identity Not on file Sexual Orientation Not on file documented as of this encounter Miscellaneous Notes * Cerner Conversion Note - Erika ProviderMD - 11/29/2018 1:37 PM CDT Discharge Summary, EX CHEF Entered On: 11/29/2018 13:40 EDT Performed On: 11/29/2018 13:37 EDT by JOSSUE RODRÍGUEZ EX CHEF Discharge Notation. EX CHEF Dysphagia Treatment After Discharge : No Discharge Diet : Regular Discharge Liquids : Thin Discharge Summary Comment, EX CHEF : Attempted to see pt for language [...] - 11/29/2018 13:37 EDT LTG Lang/Comm/Cog LTG EX CHEF Nursing Home Goal 1 Nursing Home Goal 2 Goals : Improved spoken language expression at the time of discharge Improved auditory/spoken language comprehension at the time of discharge Status : Discontinue Discontinue JOSSUE RODRÍGUEZ SLP - 11/29/2018 13:37 EDT JOSSUE RODRÍGUEZ, [facility] - 11/29/2018 13:37 EDT STG Lang_Comm_Cog Motor Speech STG Grid Goal #1 Activity : Improve intelligibility of speech Status : Discontinue JOSSUE RODRÍGUEZ [facility] - 11/29/2018 13:37 EDT Auditory Comprehension Grid Goal #1 Goal #2 Activity : Follow directions, 3 step commands simple Comprehend paragraph complex Status : Discontinue Discontinue JOSSUE RODRÍGUEZ [facility] - 11/29/2018 13:37 EDT JOSSUE RODRÍGUEZ, [facility] - 11/29/2018 13:37 EDT Verbal Expression STG Grid Goal #1 Activity : Generate items in a category Status : Discontinue JOSSUE RODRÍGUEZ EX CHEF - 11/29/2018 13:37 EDT Reading Comprehension STG Grid Goal #1 Activity : Visual perception deficits Status : Discontinue JOSSUE RODRÍGUEZ [facility] - 11/29/2018 13:37 EDT Attention STG Grid Goal #1 Activity : Other: Probe Status : Goal met Date Met : 11/24/2018 EDT JOSSUE RODRÍGUEZ [facility] - 11/29/2018 13:37 EDT Memory STG Grid Goal #1 Goal #2 Goal #3 Activity : Other: Probe Improve short term functional delayed Improve short term working memory Status : Goal met Discontinue Discontinue Date Met : 11/24/2018 EDT JOSSUE RODRÍGUEZ, [facility] - 11/29/2018 13:37 EDT JOSSUE RODRÍGUEZ, [facility] - 11/29/2018 13:37 EDT JOSSUE RODRÍGUEZ, [facility] - 11/29/2018 13:37 EDT Problem Solving STG Grid Goal #1 Goal #2 Goal #3 Goal #4 Activity : Generate a list of simple/concrete items Label items in a category, complex/abstract Other: Probe Improve simple problem solving Status : Discontinue Discontinue Goal met Discontinue Date Met : 11/24/2018 EDT JOSSUE RODRÍGUEZ, [facility] - 11/29/2018 13:37 EDT JOSSUE RODRÍGUEZ, [facility] - 11/29/2018 13:37 EDT JOSSUE RODRÍGUEZ, [facility] - 11/29/2018 13:37 EDT JOSSUE RODRÍGUEZ, EX CHEF - 11/29/2018 13:37 EDT Swallow Plan/Goals Swallow LTG Grid EX CHEF Orthotic/Prosthetic Clinician Goal #1 EX CHEF Nursing Home Goal #2 Swallow LTG : Establish safe [...]
--- OUTSIDE RECORDS SUMMARY | 2025-04-28 11:08 | XMS_ITS | Encounter Summary ---
Author Organization [employer] ([place], [place], [place], [place]) Address [address] [place] [address] Care Team Providers Care Research Rn Spec Name Role Phone Unavailable Primary Care Provider Unavailabl e Encounter Details Date Type Department Care Team (Late st Contact Info) Description 11/30/2018 Transcribed Document [facility] [place] [address] [place] [address] ProviderErika MD [address] [place] [address] Social History Tobacco Use Types [...] SENIA Soria PTA - 11/30/2018 15:17 EDT Electronically signed by Christina Saini Conversion Radiology Interventional Physician Cerner at 12/08/2022 12:19 PM CDT documented in this encounter Plan of Treatment Not on file documented as of this encounter Visit Diagnoses Not on filedocumented in this encounter
--- OUTSIDE RECORDS SUMMARY | 2025-04-28 11:08 | XMS_ITS | Encounter Summary ---
Author Organization [employer] ([place], [place], [place], [place]) Address [address] [place] [address] Care Team Providers Care Deck Mechanic Name Role Phone Unavailable Primary Care Provider Unavailabl e Encounter Details Date Type Department Care Team (Late st Contact Info) Description 11/23/2018 Transcribed Document [facility] [place] [address] [place] [address] ProviderErika MD [address] [place] [address] Social History Tobacco Use Types [...] Time of Assessment : 11/23/2018 20:00 EDT [facility] Clinician Administering Scale : SHELDON MUELLER [...] in one limb NIH Sensory (8) : Amod-jm-ijdooayr sensory loss NIH Best Language (9) : No aphasia NIH Dysarthria (10) : Normal Extinction and Inattention (11) : No abnormality NIH Scale Score : 9 SHELDON MUELLER RN - 11/23/2018 20:14 EDT Electronically signed by Christina Saini Conversion Workforce Development Assistant Cerner at 12/08/2022 12:13 PM CDT documented in this encounter Plan of Treatment Not on file documented as of this encounter Visit Diagnoses Not on filedocumented in this encounter
--- OUTSIDE RECORDS SUMMARY | 2025-04-28 11:08 | XMS_ITS | Encounter Summary ---
Author Organization [employer] ([place], [place], [place], [place]) Address [address] [place] [address] Care Team Providers Care Asset Protection Representative Name Role Phone Unavailable Primary Care Provider Unavailabl e Encounter Details Date Type Department Care Team (Late st Contact Info) Description 11/29/2018 Transcribed Document [facility] [place] [address] [place] [address] ProviderErika MD [address] [place] [address] Social History Tobacco Use [...] Performed On: 11/29/2018 5:00 EDT by CHARLES ILAO RN Chart Check Chart Reviewed Date and Time : 11/29/2018 7:19 EDT Powerplans Initiated/Discontinued as Appropriate : Not applicable CHARLES LIAO RN - 11/29/2018 7:19 EDT documented in this encounter Plan of Treatment Not on file documented as of this encounter Visit Diagnoses Not on filedocumented in this encounter
--- OUTSIDE RECORDS SUMMARY | 2025-04-28 11:08 | XMS_ITS | Encounter Summary ---
Author Organization [employer] ([place], [place], [place], [place]) Address [address] [place] [address] Care Team Providers Care Pest Control Worker Helper Name Role Phone Unavailable Primary Care Provider Unavailabl e Encounter Details Date Type Department Care Team (Late st Contact Info) Description 11/30/2018 Transcribed Document [facility] [place] [address] [place] [address] ProviderErika MD [address] [place] [address] Social History Tobacco Use Types [...]
--- OUTSIDE RECORDS SUMMARY | 2025-04-28 11:08 | XMS_ITS | Encounter Summary ---
Author Organization [employer] ([place], [place], [place], [place]) Address [address] [place] [address] Care Team Providers Care Director Multimedia Name Role Phone Unavailable Primary Care Provider Unavailabl e Encounter Details Date Type Department Care Team (Late st Contact Info) Description 11/30/2018 Transcribed Document [facility] [place] [address] [place] [address] ProviderErika MD [address] [place] [address] Social History Tobacco Use Types [...] 3E room 330. Discussed w/ Carmen from [facility] who is still following pt. She has submitted pt info to for approval. Pt had EGD 11/29 which revealed duodenal ulcer w/ clot but no bleeding, no intervention needed, Off heparin gtt, watching pt's INR and H & H. Speech signed off today, pt is cleared for thins. Met w/ pt and family and informed them of [facility] situation. Also discussed outpt Cardiac Rehab. They prefer to go to [facility]. Phoned them and left msg, sent [...] (not seen on 11/25/18) followed up with [facility] today regarding possible admission - plan is [...] (not seen on 11/25/18) followed up with [facility] today regarding possible admission - plan is to submit for approval today after being seen by therapy, for their MD approval. Once accepting MD in place, bed in place and patient is medically stable will be able to transfer due to patient not requiring a insurance prior auth. CM will continue to follow. ODALYS FAULKNER Rn-Dealer Card Room - 11/24/18 13:22:19 11/24/18 Andra from [facility] called to let me know they started a precert on this pt. CF ODALYS FAULKNER Rn-Dealer Card Room - 11/22/18 13:56:32 11/22/18 Pt has had a cva. Spoke to his Connie and son Sumeet at the bedside. Pt is lfacid on the left side. Discussed the need for STR and they decided on [facility]. Sent pt info via [employer] to [facility]. CF Documentation Status Complete : Yes SUZANNA HAINES Check Writer - 11/30/2018 15:24 EDT Discharge Planning Details Persons Assisting Patient at Home : Spouse SUZANNA HAINES Social Worker - 11/30/2018 15:24 EDT Electronically signed by [facility] Conversion Offset Label Rewinder Felipe at 12/08/2022 12:27 PM CDT documented in this encounter Plan of Treatment Not on file documented as of this encounter Visit Diagnoses Not on filedocumented in this encounter
--- OUTSIDE RECORDS SUMMARY | 2025-04-28 11:08 | XMS_ITS | Encounter Summary ---
Author Organization [employer] ([place], [place], [place], [place]) Address [address] [place] [address] Care Team Providers Care Wood Heel Flap Trimmer Name Role Phone Unavailable Primary Care Provider Unavailabl e Encounter Details Date Type Department Care Team (Late st Contact Info) Description 11/30/[address] [facility] [place] [address] [place] [address] ProviderErika MD [address] [place], [place] [phone] Social History Tobacco Use Types Packs/Day Years [...] 1940 Associated Diagnoses: CAD (coronary artery disease), [place] coronary artery; Thrombocytopenia; Coronary artery disease; HTN [...] Non-distended, Normal bowel sounds. Integumentary: Warm, Dry, [place], incision is C/D/I. Neurologic: Alert, left sided [...] (Current Encounter/Past 24 Hours) PT 27.4 Second(s) NV 11/30/2018 07:23 INR 2.6 NV 11/30/2018 07:23 . Impression and Plan Plan: [...] of discharge- CM has sent information to [facility] -Transfer to [facility] 11/24/18 -POD#8 -Awaiting transfer to [facility] -Awaiting response from [facility] 11/25/18 -POD#9 -left upper extremity venous doppler - doppler this am positive for LUE DVT - will start coumadin and heparin bridge -awaiting [facility] 11/26/18 -POD#10 -Heparin drip and coumadin for LUE DVT -Left arm swelling improved today -INR 1.1 today, INR goal 2-3 -Possibly transfer to [facility] this weekend 11/27/18: -POD#11 -Left arm swelling continues to improve -Continues on Coumadin and heparin bridge -INR: 1.4 (1.1 yesterday) goal: 2 to 3 -[facility] soon,? Tomorrow 11/28/18: -POD#12 -BP [...] blood has been set up. -Transferred to [facility] 11/29/18: -POD#13 -Upper endoscopy showed duodenal [...] D/C due to GI bleed. -Transfer to [facility] 11/30/18 POD # 14 EGD yesterday - duodenal ulceration with clot, no active bleeding and no intervention performed INR trending down, off coumadin and heparin Speech signed off yesterday - speech and cognition back to baseline Watch INR and H&H [facility] upon discharge EF 55-60% per echo 11/16/18 DVT Prophylaxis: SCDs Diagnosis CAD (coronary artery disease), [place] coronary artery - Admitting, Medical. Thrombocytopenia - [...] - Discharge, Medical. Electronically signed by Interface, [facility] Conversion Environment Coordinator Cerner at 12/08/2022 12:34 PM CDT documented in this encounter Plan of Treatment Not on file documented as of this encounter Visit Diagnoses Not on filedocumented in this encounter
--- OUTSIDE RECORDS SUMMARY | 2025-04-28 11:08 | XMS_ITS | Encounter Summary ---
Author Organization [employer] ([place], [place], [place], [place]) Address [address] [place] [address] Care Team Providers Care Motor Vehicle Dispatcher Name Role Phone Unavailable Primary Care Provider Unavailabl e Encounter Details Date Type Department Care Team (Late st Contact Info) Description 11/29/2018 Transcribed Document [facility] [place] [address] [place] [address] ProviderErika MD [address] [place] [address] Social History Tobacco Use Types Packs/Day Years Used Date Smoking Tobacco: Never Assessed Sex and Gender Information Value Date Recorded Sex Assigned at Not on file Legal Sex Male 5:03 PM CDT Gender Identity Not on file Sexual Orientation Not on file documented as of this encounter Miscellaneous Notes * Cerner Conversion Note - Historical ProviderMD - 11/29/2018 11:15 AM CDT UNIFORM ROOM ATTENDANT Attempt to Treat Entered On: 11/29/2018 11:15 [...]
--- OUTSIDE RECORDS SUMMARY | 2025-04-28 11:08 | XMS_ITS | Encounter Summary ---
Author Organization [employer] ([place], [place], [place], [place]) Address [address] [place] [address] Care Team Providers Care Bull Gang Worker Name Role Phone Unavailable Primary Care Provider Unavailabl e Encounter Details Date Type Department Care Team (Late st Contact Info) Description 11/30/2018 Transcribed Document [facility] [place] [address] [place] [address] ProviderErika MD [address] [place] [address] Social History Tobacco Use [...] 2 Tab, Oral, BID saliva substitutes, 1 Jordan, Buccal, Q2H, PRN Senokot, 17.2 mg= 2 Tab, Oral, BID Synthroid, 50 mcg= 2.5 mL, IV Push, Q48H Zofran, 4 mg= 2 mL, IV Push, Q4H, PRN documented in this encounter Plan of Treatment Not on file documented as of this encounter Visit Diagnoses Not on filedocumented in this encounter
--- OUTSIDE RECORDS SUMMARY | 2025-04-28 11:08 | XMS_ITS | Encounter Summary ---
Author Organization [employer] ([place], [place], [place], [place]) Address [address] [place] [address] Care Team Providers Care Pipeline Construction Inspector Name Role Phone Unavailable Primary Care Provider Unavailabl e Encounter Details Date Type Department Care Team (Late st Contact Info) Description 11/22/2018 Transcribed Document [facility] [place] Family Medicine [address] [place] [address] ProviderErika MD [address] [place] [address] Social History Tobacco Use Types [...] unspecified 11/17/2018 00:00 Atherosclerotic heart disease of [place] coronary artery without angina pectoris 11/17/2018 00:00 Essential (primary) hypertension 11/17/2018 00:00 Hypothyroidism, unspecified 11/17/2018 00:00 Nonrheumatic aortic (valve) insufficiency 11/17/2018 00:00 Restless legs syndrome 11/17/2018 00:00 Thoracic aortic aneurysm, without rupture 11/17/2018 00:00 Thrombocytopenia, unspecified 11/16/2018 00:00 Atherosclerotic heart disease of [place] coronary artery without angina pectoris 11/16/2018 00:00 [...] TARI MOORE OTR/L 11/23/2018 15:10 EDT Hand Construction Crew Member Test : trace with digits TARI MOORE [...] TARI MOORE OTR/Ginny - 11/23/2018 15:10 EDT Perlite Grinder Goals, OT Self Feeding LTG Grid Goal [...]
--- OUTSIDE RECORDS SUMMARY | 2025-04-28 11:08 | XMS_ITS | Encounter Summary ---
Author Organization [employer] ([place], [place], [place], [place]) Address [address] [place] [address] Care Team Providers Care Reel Film Inspector Name Role Phone Unavailable Primary Care Provider Unavailabl e Encounter Details Date Type Department Care Team (Late st Contact Info) Description 11/29/2018 Transcribed Document [facility] [place] Family Medicine [address] [place] [address] ProviderErika MD [address] [place], [place] [id number] Social History Tobacco Use Types Packs/Day Years Used Date Smoking Tobacco: Never Assessed Sex and Gender Information Value Date Recorded Sex Assigned at Not on file Legal Sex Male 5:03 PM CDT Gender Identity Not on file Sexual Orientation Not on file documented as of this encounter Miscellaneous Notes * Cerner Conversion Note - Historical ProviderMD - 11/29/2018 2:00 AM CDT Supervisory Aide Details Entered On: 11/29/2018 1:39 EDT Performed On: 11/29/2018 2:00 EDT by CAHRLES LIAO, RN Order Details Transport Mode Order [...]
--- OUTSIDE RECORDS SUMMARY | 2025-04-28 11:08 | XMS_ITS | Encounter Summary ---
Author Organization [employer] ([place], [place], [place], [place]) Address [address] [place] [address] Care Team Providers Care Asp Net C Developer Name Role Phone Unavailable Primary Care Provider Unavailabl e Encounter Details Date Type Department Care Team (Late st Contact Info) Description 11/30/2018 Transcribed Document [facility] [place] [facility] [place] [address] ProviderErika MD [address] [place] [address] Social History Tobacco Use Types [...] Jose MD - 11/30/2018 3:31 PM CDT [address] [address] Patient Copy Patient Information: Name: DOTTIE VILLASENOR Current Date: 11/30/2018 15:31:38 : 1940 Patient Address: [address] [place] [id number] Patient Attending Physician: JULIO CESAR CARVALHO MD-[facility] Primary Care Provider: DEMETRICE ARMIJO NP-[facility] Primary Care Provider Discharge Diagnosis: Acute blood loss anemia; Aortic insufficiency; Coronary artery disease; GI bleed; LUE DVT (deep venous thrombosis); Right MCA CVA (cerebral vascular accident); Thoracic ascending aortic aneurysm Weight on Admission: 174 lb, 5 oz Weight at Discharge: 164 lb, 1 oz Comment: Follow-up Instructions: With: Address: When: JOHN BOWEN [address], [address] [place] [address] Business (1) Within 6 weeks Comments: Patient should call for a follow up appointment with [facility]. Discharge Instructions: Driving after Discharge: Do not drive, Other: No driving or operating heavy machinery until released by a physician. Community Services: Outpt Cardiac Rehab [facility] [phone] They will call pt w/ appt time. [...] 09/17/2005 Document Revised: 01/15/2017 Document Reviewed: 02/10/2014 [employer] Interactive Patient Education ? 2017 [employer] CIGARETTE SMOKING: The facts are clear, cigarette smoking will shorten your life. Smoking can cause many illnesses along the way. As a healthcare provider, we recommend that you stop smoking. Assistance with quitting is available by contacting 1-744-SZKS-NOW. This is a free resource providing counseling, [...] Be sure to sign up for the [facility] patient portal, which gives you 16/03 access to your medical information ??? including these discharge instructions ??? using your computer, smartphone, or tablet. Just go to [employer] to get started. Questions? Call . [facility] would like to thank you for allowing us to assist you with your healthcare needs. HAMILTON Jarvis ROBERT H, (or marketing sales representative) have received the above patient education materials/instructions and have verbalized understanding: Patient Signature _ Date/Time Patient Meal Miller Signature (if needed) Date/Time Clinician/Hospital Meal Miller Signature (if needed) Date/Time documented in this encounter Plan of Treatment Not on file documented as of this encounter Visit Diagnoses Not on filedocumented in this encounter
--- OUTSIDE RECORDS SUMMARY | 2025-04-28 11:08 | XMS_ITS | Encounter Summary ---
Author Organization [employer] ([place], [place], [place], [place]) Address [address] [place] [address] Care Team Providers Care Soybean Specialties Cook Name Role Phone Unavailable Primary Care Provider Unavailabl e Encounter Details Date Type Department Care Team (Late st Contact Info) Description 11/29/2018 Transcribed Document [facility] [place] [address] [place] [address] ProviderErika MD [address] [place], [place] [id number] Social History Tobacco Use Types Packs/Day Years [...] 1940 Associated Diagnoses: CAD (coronary artery disease), [place] coronary artery; Thrombocytopenia; Coronary artery disease; HTN [...] Non-distended, Normal bowel sounds. Integumentary: Warm, Dry, Luis M. Cintron, incision is C/D/I. Neurologic: Alert, left sided [...] (Current Encounter/Past 24 Hours) PT 31.3 Second(s) [place] 11/29/2018 06:38 PTT 27.6 Second(s) 11/28/2018 08:53 INR 3.0 [place] 11/29/2018 06:38 . Impression and Plan Plan: [...] time of discharge- has sent information to [facility] -Transfer to [facility] 11/24/18 -POD#8 -Awaiting transfer to [facility] -Awaiting response from [facility] 11/25/18 -POD#9 -left upper extremity venous doppler - doppler this am positive for LUE DVT - will start coumadin and heparin bridge -awaiting [facility] 11/26/18 -POD#10 -Heparin drip and coumadin for LUE DVT -Left arm swelling improved today -INR 1.1 today, INR goal 2-3 -Possibly transfer to [facility] this weekend 11/27/18: -POD#11 -Left arm swelling continues to improve -Continues on Coumadin and heparin bridge -INR: 1.4 (1.1 yesterday) goal: 2 to 3 -[facility] soon,? Tomorrow 11/28/18: -POD#12 -BP [...] blood has been set up. -[facility] 11/29/18: -POD#13 -Upper endoscopy showed duodenal ulceration [...] D/C due to GI bleed. -Transfer to [facility] EF 55-60% per echo 11/16/18 DVT Prophylaxis: SCDs Diagnosis CAD (coronary artery disease), [place] coronary artery - Admitting, Medical. Thrombocytopenia - [...]
--- OUTSIDE RECORDS SUMMARY | 2025-04-28 11:08 | XMS_ITS | Encounter Summary ---
Author Organization [employer] ([place], [place], [place], [place]) Address [address] [place] [address] Care Team Providers Care Quenching Machine Operator Name Role Phone Unavailable Primary Care Provider Unavailjuliana e Encounter Details Date Type Department Care Team (Late st Contact Info) Description 11/29/2018 Transcribed Document [facility] [place] [address] [place] [address] ProviderErika MD [address] [place] [address] Social History Tobacco Use Types [...] unspecified 11/17/2018 00:00 Atherosclerotic heart disease of [place] coronary artery without angina pectoris 11/17/2018 00:00 Essential (primary) hypertension 11/17/2018 00:00 Hypothyroidism, unspecified 11/17/2018 00:00 Nonrheumatic aortic (valve) insufficiency 11/17/2018 00:00 Restless legs syndrome 11/17/2018 00:00 Thoracic aortic aneurysm, without rupture 11/17/2018 00:00 Thrombocytopenia, unspecified 11/16/2018 00:00 Atherosclerotic heart disease of [place] coronary artery without angina pectoris 11/16/2018 00:00 Nonrheumatic aortic (valve) insufficiency 11/16/2018 00:00 Thoracic aortic aneurysm, without rupture Admission Date : 11/16/2018 06:45 Co-treated by, OT : phlebotomy lab assistant (ECONOMICS INSTRUCTOR) Personal Devices : Personal Devices No Devices [...] DAKOTA VELAZQUEZ OTR/L - 11/29/2018 13:08 EDT Mental Health Director Goals, OT Self Feeding LTG Grid Goal [...]
--- OUTSIDE RECORDS SUMMARY | 2025-04-28 11:08 | XMS_ITS | Encounter Summary ---
Author Organization [employer] ([place], [place], [place], [place]) Address [address] [place] [address] Care Team Providers Care Fish And Wildlife Warden Name Role Phone Unavailable Primary Care Provider Unavailabl e Encounter Details Date Type Department Care Team (Late st Contact Info) Description 11/22/2018 Transcribed Document [facility] [place] Family Medicine [address] [place] [address] ProviderErika MD [address] [place] [address] Social History Tobacco Use Types [...] Source : Measured Height Entry Format : Upson Height, Feet : 6 ft Height, Inches [...]
--- OUTSIDE RECORDS SUMMARY | 2025-04-28 11:08 | XMS_ITS | Encounter Summary ---
Author Organization [employer] ([place], [place], [place], [place]) Address [address] [place] [address] Care Team Providers Care Road Engineer Name Role Phone Unavailable Primary Care Provider Unavailabl e Encounter Details Date Type Department Care Team (Late st Contact Info) Description 11/22/2018 Transcribed Document [facility] [place] Family Medicine [address] [place] [address] ProviderErika MD [address] [place] [address] Social History Tobacco Use Types [...] EDT Electronically signed by Christina Saini Conversion Reproductive Healthcare Assistant Cerner at 12/08/2022 12:18 PM CDT documented in this encounter Plan of Treatment Not on file documented as of this encounter Visit Diagnoses Not on filedocumented in this encounter
--- OUTSIDE RECORDS SUMMARY | 2025-04-28 11:08 | XMS_ITS | Encounter Summary ---
Author Organization [employer] ([place], [place], [place], [place]) Address [address] [place] [address] Care Team Providers Care Airport Ramp Supervisor Name Role Phone Unavailable Primary Care Provider Unavailabl e Encounter Details Date Type Department Care Team (Late st Contact Info) Description 11/30/2018 Transcribed Document [facility] [place] Family Medicine [address] [place] [address] ProviderErika MD [address] [place] [address] Social History Tobacco Use Types [...]
--- OUTSIDE RECORDS SUMMARY | 2025-04-28 11:08 | XMS_ITS | Encounter Summary ---
Author Organization [employer] ([place], [place], [place], [place]) Address [address] [place] [address] Care Team Providers Care Supervisory It Specialist Name Role Phone Unavailable Primary Care Provider Unavailabl e Encounter Details Date Type Department Care Team (Late st Contact Info) Description 11/29/2018 Transcribed Document [facility] [place] Family Medicine [address] [place] [address] ProviderErika MD [address] [place] [address] Social History Tobacco Use Types Packs/Day Years Used Date Smoking Tobacco: Never Assessed Sex and Gender Information Value Date Recorded Sex Assigned at Not on file Legal Sex Male 5:03 PM CDT Gender Identity Not on file Sexual Orientation Not on file documented as of this encounter Miscellaneous Notes * Cerner Conversion Note - Erika ProviderMD - 11/29/2018 2:51 PM CDT [facility]o IntraOp Summary Primary Physician: RIGOBERTO YU MD Finalized Date/Time: 11/29/18 15:07:06 Pt. Name: DOTTIE VILLASENOR /Sex: 1940 Male Med Rec #: [id number] Physician: JULIO CESAR CARVALHO MD-[facility] Financial #: [id number] Pt. Type: I Room/Bed: [facility]/ Admit/Disch: 11/16/18 06:45:00 - Institution: [facility] End[facility] - Case Attendance Entry 1 Entry 2 Entry 3 Case Attendee RIGOBERTO YU MD Reynolds, Ashley N, RN JONNATHAN LUBIN Role Performed Surgeon/Proceduralist, Electronics Maintenance Technician, First Scrub, First First Time In 11/29/18 [...] Patino Crna CORNEA, MIHAELA, MD Role Performed ENTRY LEVEL ACCOUNTING CLERK/Nurse Laboratory Analyst Anesthesiologist of Record Time In 11/29/18 14:47:00 11/29/18 14:47:00 Time Out 11/29/18 15:09:00 11/29/18 15:09:00 Procedure EGD w Control Bleeding EGD w Control Bleeding Other Attendee Superficial Wound Closed By: Last Modified By: Gem Parekh RN Reynolds, Ashley N, RN 11/29/18 15:06:55 11/29/18 15:06:55 [facility] - Case Attendance Audit 11/29/18 15:06:55 Biophysics Professor: [email or web address] Modifier: [email or web address] 1 <+> Time Out 1 <*> Procedure EGD w Control Bleeding 2 <+> Time Out 2 <*> Procedure EGD w Control Bleeding 3 <+> Time Out 3 <*> Procedure EGD w Control Bleeding 4 <+> Time Out 4 <*> Procedure EGD w Control Bleeding 5 <+> Time Out 5 <*> Procedure EGD w Control Bleeding 11/29/18 14:59:16 Biophysics Professor: [email or web address] Modifier: [email or web address] <+> 1 Procedure <+> 2 Procedure <+> 3 Procedure <+> 4 Procedure <+> 5 Procedure 11/29/18 14:59:14 Biophysics Professor: [email or web address] Modifier: [email or web address] 1 <-> Procedure Esophagogastroduodenoscopy 2 <-> Procedure Esophagogastroduodenoscopy 3 <-> Procedure Esophagogastroduodenoscopy 4 <-> Procedure Esophagogastroduodenoscopy 5 <-> Procedure Esophagogastroduodenoscopy 11/29/18 14:49:19 Biophysics Professor: [email or web address] Modifier: [email or web address] 1 <*> Procedure Esophagogastroduodenoscopy 2 <+> Time In 2 <*> Procedure Esophagogastroduodenoscopy 3 <+> Time In 3 <*> Procedure Esophagogastroduodenoscopy 4 <+> Time In 4 <*> Procedure Esophagogastroduodenoscopy 5 <+> Time In 5 <*> Procedure Esophagogastroduodenoscopy 11/29/18 14:48:29 Biophysics Professor: [email or web address] Modifier: [email or web address] 1 <+> Time In 1 <*> Procedure Esophagogastroduodenoscopy <+> 2 Case Attendee <+> 2 Role Performed <+> 2 Procedure <+> 3 Case Attendee <+> 3 Role Performed <+> 3 Procedure <+> 4 Case Attendee <+> 4 Role Performed <+> 4 Procedure <+> 5 Case Attendee <+> 5 Role Performed <+> 5 Procedure [facility] - Case times Entry 1 Patient In Room Time 11/29/18 14:47:00 Out Room Time 11/29/18 15:09:00 Anesthesia Start Time 11/29/18 14:47:00 Stop Time 11/29/18 15:09:00 Surgery / Procedure Times Start Time 11/29/18 14:51:00 Stop Time 11/29/18 15:06:00 Last Modified By: Gem Parekh RN 11/29/18 15:06:53 [facility] - Case times Audit 11/29/18 15:06:53 Biophysics Professor: [email or web address] Modifier: [email or web address] <+> 1 Out Room Time <+> 1 Stop Time <+> 1 Stop Time 11/29/18 14:51:51 Biophysics Professor: [email or web address] Modifier: [email or web address] <+> 1 Start Time [facility] - Delays Entry 1 Delay Reason Other Duration 0 Minute(s) Last Modified By: Gem Parekh RN 11/29/18 14:48:33 [facility] - Departure from OR Entry 1 Integumentary Assessment Integumentary WDL Assessment WDL Transfer/Handoff Transfer to PACU Phase I Handoff Method Bedside/Face to face Post-op Transport Stretcher/Gurney Via Patient Transport Gem Parekh RN, Accompanied by Cassie Patino Crna Last Modified By: Gem Parekh RN 11/29/18 14:48:36 [facility] - Endoscopy Details Entry 1 Abdomen Procedure Soft, Non-Tender Assessment Procedure Abdomen 11/29/18 14:47:00 Assessment D/T Radio Frequency Ablation Last Modified By: Gem Parekh RN 11/29/18 14:48:41 [facility] - Fire Risk Assessment Entry 1 [...] Modified By: Gem Parekh RN 11/29/18 14:48:48 [facility] - General Case Insurance Actuary 1 Case Information OR Endo 01 [facility] Case Level 1 Room Verified Yes Wound Class II - Clean-Contaminated Specialty SN Gastroenterology Anesthesia Type MAC ASA Class 4 Diagnosis Preop Diagnosis GI Bleed Postop Same As Preop Yes Postop Diagnosis GI Bleed Last Modified By: Gem Parekh RN 11/29/18 14:48:58 [facility] - Implant Log Entry 1 Entry 2 Type Implant (Synthetic) Implant (Synthetic) Implant Log Implant Type Tissue Implant Type Implant CLIP II RESOLUTION CLIP II RESOLUTION Identification [id number] Description Implant Quantity 1 1 Implant Site Implant Identification Model Number Implant Identification Serial Number Implant [id number] Identification Lot Number Implant [place] Sci:Interv [place] Sci:Interv Identification Cardiology Cardiology Service Center Appraiser Name: Implant [id number] Identification Catalog Number Implant Size Implant Has an Yes Yes Expiration Date Implant Expiration 09/05/21 07/10/21 Date Wasted Radioactive Material Time Implanted Tissue Implant Continue for Tissue Implant Documentation Tissue Identification Number Graft Prep Per Service Center Appraiser Instructions: Tissue Preparation Method: Reconstitution Solution: Reconstitution Solution Lot Number Reconstitution Solution Expiration Date: Thawing Solution Thawing Solution Lot Number Thawing Solution Expiration Date Preparation Materials, Other Preparation Materials, Other Lot Number Preparation Materials, Other Expiration Date Tissue Prepared/Processed By Service Center Appraiser Paperwork Completed Implant Type Comment clip failed Last Modified By: Gem Parekh RN Reynolds, Ashley N, RN 11/29/18 15:00:27 11/29/18 15:06:45 [facility] - Implant Log Audit 11/29/18 15:06:45 Biophysics Professor: GARY Modifier: [email or web address] 2 <*> Implant Identification Description CLIP II RESOLUTION [id number] 2 <+> Implant Type Comment 11/29/18 15:04:27 Biophysics Professor: [email or web address] Modifier: [email or web address] <+> 2 Implant Identification Description <+> 2 Implant Identification Lot Number <+> 2 Implant Identification Service Center Appraiser Name: <+> 2 Implant Expiration Date <+> 2 Implant Quantity <+> 2 Implant Identification Catalog Number <+> 2 Implant Has an Expiration Date <+> 2 Type [facility] - Intraoperative Assessment Entry 1 Valid History / Yes Physical in Chart Preoperative Yes Checklist Reviewed/Evaluated Patient is Latex No Sensitive Level of WDL Consciousness (WDL = Alert, Oriented to Person, Place, and Time) Last Modified By: Gem Parekh RN 11/29/18 14:49:01 [facility] - Intraoperative Equipment Entry 1 Entry [...] Ashley N, RN 11/29/18 14:49:07 11/29/18 14:56:48 [facility] - Intraoperative Equipment Audit 11/29/18 14:56:48 Biophysics Professor: [email or web address] Modifier: [email or web address] <+> 2 Photo <+> 2 Video <+> 2 Electrocardiogram (ECG) Electrode Placement <+> 2 Blood Pressure Location <+> 2 Pulse Oximeter Probe Site <+> 2 Flexible Endoscopes Used <+> 2 Scope Serial Number/Identification Number <+> 2 Type [facility] - Patient Positioning Entry 1 Procedure [...] Modified By: Gem Parekh RN 11/29/18 14:59:16 [facility] - Patient Positioning Audit 11/29/18 14:59:16 Biophysics Professor: [email or web address] Modifier: [email or web address] <+> 1 Procedure 11/29/18 14:59:14 Biophysics Professor: [email or web address] Modifier: [email or web address] 1 <-> Procedure Esophagogastroduodenoscopy [facility] - Sign In Entry 1 Patient, Site, Yes Procedure Identified Surgical Consent Yes Confirmed Surgical Site N/A Marked by person performing procedure Airway Hypothermia Risk No Warming Measures No Taken Last Modified By: Gem Parekh RN 11/29/18 14:49:18 [facility] - Sign Out Entry 1 RN [...] Modified By: Gem Parekh RN 11/29/18 15:07:01 [facility] - Surgical Procedures Entry 1 Procedure EGD w Control Bleeding Primary Procedure Yes Primary Surgeon RIGOBERTO YU MD Start 11/29/18 14:51:00 Stop 11/29/18 15:06:00 Anesthesia Type MAC Specialty SN Gastroenterology Wound Class II - Clean-Contaminated Last Modified By: Gem Parekh RN 11/29/18 15:07:04 [facility] - Surgical Procedures Audit 11/29/18 15:07:04 Biophysics Professor: [email or web address] Modifier: [email or web address] <+> 1 Stop 11/29/18 14:59:15 Biophysics Professor: [email or web address] Modifier: [email or web address] 1 <*> Procedure Esophagogastroduodenoscopy 1 <+> Start 11/29/18 14:49:23 Biophysics Professor: [email or web address] Modifier: [email or web address] 1 <*> Procedure Esophagogastroduodenoscopy 1 <+> Specialty [facility] - Time Out Entry 1 Procedure [...] Modified By: Gem Parekh RN 11/29/18 14:59:17 [facility] - Time Out Audit 11/29/18 14:59:17 Biophysics Professor: [email or web address] Modifier: [email or web address] <+> 1 Procedure to be Performed 11/29/18 14:59:15 Biophysics Professor: [email or web address] Modifier: [email or web address] 1 <-> Procedure to be Performed Esophagogastroduodenoscopy Case Comments <None> Finalized By: Gem Parekh RN Document Signatures Signed By: Gem Parekh RN 11/29/18 15:07 Electronically signed by Parveen [facility] Conversion Batch Attendant Cerner at 12/08/2022 12:33 PM CDT documented in this encounter Plan of Treatment Not on file documented as of this encounter Visit Diagnoses Not on filedocumented in this encounter
--- OUTSIDE RECORDS SUMMARY | 2025-04-28 11:08 | XMS_ITS | Encounter Summary ---
Author Organization [employer] ([place], [place], [place], [place]) Address [address] [place] [address] Care Team Providers Care Medical Records Receptionist Name Role Phone Unavailable Primary Care Provider Unavailabl e Encounter Details Date Type Department Care Team (Late st Contact Info) Description 11/30/2018 Transcribed Document [facility] Family Medicine [address] [place] [address] ProviderErika MD [address] [place] [address] Social History Tobacco Use Types [...]
--- OUTSIDE RECORDS SUMMARY | 2025-04-28 11:08 | XMS_ITS | Encounter Summary ---
Author Organization [employer] ([place], [place], [place], [place]) Address [address] [place] [address] Care Team Providers Care Chemistry Account Manager Name Role Phone Unavailable Primary Care Provider Unavailabl e Encounter Details Date Type Department Care Team (Late st Contact Info) Description 11/29/2018 Transcribed Document [facility] [place] Family Medicine [address] [place] [address] ProviderErika MD [address] [place] [address] Social History Tobacco Use [...] - 11/29/2018 2:51 PM CDT [facility] Endo PACU Summary Primary Physician: RIGOBERTO YU MD Finalized Date/Time: 11/29/18 15:36:07 Pt. Name: VILLASENOR DOTTIE Ladan /Sex: 1940 Male Med Rec #: [id number] Physician: JULIO CESAR CARVALHO MD-[facility] Financial #: [id number] Pt. Type: I Room/Bed: 330/1 Admit/Disch: 11/16/18 06:45:00 - Institution: [facility] Endo PACU Case Times Entry 1 In PACU I 11/29/18 15:10:00 Ready for PACU 11/29/18 15:35:00 Discharge Discharge from PACU 11/29/18 15:35:00 I Last Modified By: Destiney Mckenzie RN 11/29/18 15:35:51 [facility] Endo PACU Case Times Audit 11/29/18 15:35:51 Ui Ux Developer: [email or web address] Modifier: [email or web address] <+> 1 Ready for PACU Discharge <+> 1 Discharge from PACU I Finalized By: Destiney Mckenzie RN Document Signatures Signed By: Destiney Mckenzie RN 11/29/18 15:36 documented in this encounter Plan of Treatment Not on file documented as of this encounter Visit Diagnoses Not on filedocumented in this encounter
--- OUTSIDE RECORDS SUMMARY | 2025-04-28 11:09 | XMS_ITS | Encounter Summary ---
Author Organization [employer] ([place], [place], [place], [place]) Address [address] [place] [address] Care Team Providers Care Scheduler Conveyor Name Role Phone Unavailable Primary Care Provider Unavailabl e Encounter Details Date Type Department Care Team (Late st Contact Info) Description 11/17/2018 Transcribed Document [facility] [place] [address] [place] [address] ProviderErika MD [address] [place] [address] Social History Tobacco Use Types [...]
--- OUTSIDE RECORDS SUMMARY | 2025-04-28 11:09 | XMS_ITS | Encounter Summary ---
Author Organization [employer] ([place], [place], [place], [place]) Address [address] [place] [address] Care Team Providers Care Dean Of Chapel Name Role Phone Unavailable Primary Care Provider Unavailabl e Encounter Details Date Type Department Care Team (Late st Contact Info) Description 11/17/2018 Transcribed Document [facility] [place] [address] [place] [address] ProviderErika MD [address] [place] [address] Social History Tobacco Use Types [...] REESE OCONNOR Rn - 11/17/2018 17:23 EDT Electronically signed by Christina Saini Conversion Superintendent Renting Managing Cerner at 12/08/2022 12:31 PM CDT documented in this encounter Plan of Treatment Not on file documented as of this encounter Visit Diagnoses Not on filedocumented in this encounter
--- OUTSIDE RECORDS SUMMARY | 2025-04-28 11:10 | XMS_ITS | Encounter Summary ---
Author Organization [employer] ([place], [place], [place], [place]) Address [address] [place] [address] Care Team Providers Care Chief Reservoir Engineering Name Role Phone Unavailable Primary Care Provider Unavailjuliana e Encounter Details Date Type Department Care Team (Late st Contact Info) Description 11/17/2018 Transcribed Document [facility] [place] [address] [place] [address] ProviderErika MD [address] [place] [address] Social History Tobacco Use Types [...] On: 11/17/2018 11:49 EDT by Lizabeth Marti, Signal Repairer Nutrition Assessment Nutrition Assessment Reason : Consult [...] wnls + sternum midline incision GI: LBM TREASURY REPRESENTATIVE, hypoactive BS, +NGT, +chest tube (1030 ml) HT: 185cm (6'1) ADMIT WT: 79kg/174# BMI: 23 IBW: 79kg/100% NFPE: insignificant EST NEEDS: 3920-0360 kcal (25-30kcal/kg), 95g pro (1.2g/kg) Lizabeth Marti [...] recommend initate po diet (cardiac) w/consitencies per PIERCE AND SHAVE PRESS OPERATOR. RD will monitor need for supplement. [...]
--- OUTSIDE RECORDS SUMMARY | 2025-04-28 11:10 | XMS_ITS | Encounter Summary ---
Author Organization [employer] ([place], [place], [place], [place]) Address [address] [place] [address] Care Team Providers Care Centerless Grinding Machine Adjuster Name Role Phone Unavailable Primary Care Provider Unavailabl e Encounter Details Date Type Department Care Team (Late st Contact Info) Description 11/17/2018 Transcribed Document [facility] [place] [address] [place] [address] ProviderErika MD [address] [place] [address] Social History Tobacco Use Types [...]
--- OUTSIDE RECORDS SUMMARY | 2025-04-28 11:11 | XMS_ITS | Encounter Summary ---
Author Organization [employer] ([place], [place], [place], [place]) Address [address] [place] [address] Care Team Providers Care Cargo Station Worker Name Role Phone Unavailable Primary Care Provider Unavailabl e Encounter Details Date Type Department Care Team (Late st Contact Info) Description 11/17/2018 Transcribed Document [facility] [place] [address] [place] [address] ProviderErika MD [address] [place], [place] [id number] Social History Tobacco Use Types Packs/Day Years [...] 1940 Associated Diagnoses: CAD (coronary artery disease), [place] coronary artery; Thrombocytopenia; Coronary artery disease; [...] Palpable bilateral DP pulses. Integumentary: Warm, Dry, [place]. Neurologic: Not alert. Review / Management Results review: NOV 17 03:12 142 110 20 / H 115 4.1 25 1.10 \ NOV 17 03:12 \ L 10.7 / H 15.3 L 112 / L 32.1 \ Blood Gases (Current Encounter/Past 24 Hours) pH Art 7.48 TX 11/17/2018 05:17 pCO2 Art 31.2 LOW 11/17/2018 [...] 43.0 11/16/2018 12:06 pO2 Art POC 433.0 TX 11/16/2018 12:06 HCO3 Art POC 28.5 TX 11/16/2018 12:06 tCO2 Art POC 30.0 TX 11/16/2018 12:06 BE Art POC 4.0 TX 11/16/2018 12:06 sO2 Art POC >99.9 TX 11/16/2018 12:06 ABG Num of Draw Attempts 1 11/17/2018 05:17 Coagulation Results (Current Encounter/Past 24 Hours) No Coagulation Results Found (Past 24 Hours) . Impression and Plan Plan: 11/17/18 -POD#1 -MTs left in place secondary to drainage EF 55-60% per echo 11/16/18 DVT Prophylaxis: SCDs Diagnosis CAD (coronary artery disease), [place] coronary artery - Admitting, Medical. Thrombocytopenia [...]
--- OUTSIDE RECORDS SUMMARY | 2025-04-28 11:12 | XMS_ITS | Encounter Summary ---
Author Organization [employer] ([place], [place], [place], [place]) Address [address] [place] [address] Care Team Providers Care Peoplesoft Financials Name Role Phone Unavailable Primary Care Provider Unavailabl e Encounter Details Date Type Department Care Team (Late st Contact Info) Description 12/01/2018 Transcribed Document [facility] [place] [address] [place] [address] ProviderErika MD [address] [place] [address] Social History Tobacco Use Types [...] Jose MD - 12/01/2018 1:54 PM CDT [facility] [place] [address] DOTTIE VILLASENOR :1940 Visit Time:11/16/2018 Your Visit Summary Your Care Team Admitting Physician - JULIO CESAR CARVALHO MD-CAT Attending Physician - JULIO CESAR CARVALHO MD-YADIRA Primary Care Physician - DEMETRICE ARMIJO NP-FAM Referring Physician - DEMETRICE ARMIJO NP-FAM Your Diagnosis Acute blood loss anemia Aortic insufficiency, Aortic insufficiency CAD (coronary artery disease), [place] coronary artery, Coronary artery disease GI bleed [...] Your Care Team [facility]-Stroke [facility] RN report #[phone] DC Summary #[phone] You may shower. Make sure your back [...] IF you have a fever greater than [address], call the surgeon. DO NOT drive for [...] Where: [address] [place] [address]- Business (1) Follow Up with JULIO CESAR CARVALHO When 12/15/2018 12:15 PM EDT Where: [address] [place] [address] Business (1) Follow Up with DEMETRICE ARMIJO When Within 1 week Comments When you are discharged from [facility] please call to make a 1 week hospital follow-up appointment. Where: [address] [place] [address]- Follow Up with JOHN BOWEN When Within 6 weeks Comments Patient should call for a follow up appointment with [facility]. Where: [address] [place] [address]- Business (1) Medications What How [...] contain harmful chemicals. FOR MORE INFORMATION ??? [place] [employer]: www.lung.org ??? [place] Cancer Society: www.cancer.org This information is not intended to replace advice given to you by your health care provider. Make sure you discuss any questions you have with your health care provider. Document Released: 09/17/2005 Document Revised: 12/01/2016 Document Reviewed: 01/30/2014 ElseClipmarks Interactive Patient Education ?? 2017 [employer] How to Take Your Blood Pressure [...] 07/23/2009 Document Revised: 08/31/2015 Document Reviewed: 10/05/2014 [employer] Interactive Patient Education ?? 2017 [employer]. How to Take a Pulse Your [...] 02/14/2004 Document Revised: 02/27/2017 Document Reviewed: 01/13/2017 [employer] Interactive Patient Education ?? 2017 [employer]. Coronary Artery Bypass Grafting, Care After [...] 02/27/2006 Document Revised: 08/31/2015 Document Reviewed: 01/17/2014 [employer] Interactive Patient Education ?? 2017 [employer] Bleeding Precautions When on Anticoagulant Therapy [...] can be dangerous for you. ??? Many ukrj-vii-nlrnnfo medicines for pain, colds, or stomach problems [...] provider. Document Released: 07/21/2016 Document Reviewed: 07/21/2016 [employer] Interactive Patient Education ?? 2017 [employer]. Atrial Fibrillation Introduction Atrial fibrillation is a [...] Follow these instructions at home: ??? Take wymc-gkc-glvlnes and prescription medicines only as told by [...] 09/17/2005 Document Revised: 01/15/2017 Document Reviewed: 02/10/2014 [employer] Interactive Patient Education ?? 2017 [employer]. misoprostol (reji ramos) [facility] What is the most important information [...] may report side effects to FDA at 2-156-JLG-4768. What other drugs will affect misoprostol? Other drugs may interact with misoprostol, including prescription and nkfa-hjs-vanhoni medicines, vitamins, and herbal products. Tell each [...] to ensure that the information provided by [employer]Plan[employer]. ('Multum') is accurate, up-to-date, and complete, but no guarantee is made to that effect. Drug information contained herein may be time sensitive. Kypha information has been compiled for use by healthcare practitioners and consumers in the [place] and therefore Kypha does not warrant that uses outside of the [place] are appropriate, unless specifically indicated otherwise. StickyADS.tvs drug information does not endorse drugs, diagnose patients or recommend therapy. StickyADS.tvs drug information is an informational resource designed [...] effective or appropriate for any given patient. Kypha does not assume any responsibility for any aspect of healthcare administered with the aid of information Kypha provides. The information contained herein is not intended to cover all possible uses, directions, precautions, warnings, drug interactions, allergic reactions, or adverse effects. If you have questions about the drugs you are taking, check with your doctor, nurse or pharmacist. Copyright 4178-8194 [employer]Planet. Version: 8.01. Revision Date: 03/02/2014.sucralfate (oral) (angelica [...] may report side effects to FDA at 5-852-UCF-5241. What other drugs will affect sucralfate? Sucralfate can make it harder for your body to absorb other medications you take by mouth. Avoid taking any other medications within 2 hours before or after you take sucralfate. Other drugs may interact with sucralfate, including prescription and mxsr-nsz-fmobmyb medicines, vitamins, and herbal products. Tell each [...] to ensure that the information provided by [employer]. ('Multum') is accurate, up-to-date, and complete, but no guarantee is made to that effect. Drug information contained herein may be time sensitive. Kypha information has been compiled for use by healthcare practitioners and consumers in the [place] and therefore Kypha does not warrant that uses outside of the [place] are appropriate, unless specifically indicated otherwise. StickyADS.tvs drug information does not endorse drugs, diagnose patients or recommend therapy. StickyADS.tvs drug information is an informational resource designed [...] effective or appropriate for any given patient. Kypha does not assume any responsibility for any aspect of healthcare administered with the aid of information Kypha provides. The information contained herein is not intended to cover all possible uses, directions, precautions, warnings, drug interactions, allergic reactions, or adverse effects. If you have questions about the drugs you are taking, check with your doctor, nurse or pharmacist. Copyright 5322-5728 [employer]. Version: 8.01. Revision Date: 01/03/2013.sucralfate (oral) (angelica [...] may report side effects to FDA at 2-774-ODG-8279. What other drugs will affect sucralfate? Sucralfate can make it harder for your body to absorb other medications you take by mouth. Avoid taking any other medications within 2 hours before or after you take sucralfate. Other drugs may interact with sucralfate, including prescription and zhlu-ona-qavfpdc medicines, vitamins, and herbal products. Tell each [...] to ensure that the information provided by [employer]. ('Multum') is accurate, up-to-date, and complete, but no guarantee is made to that effect. Drug information contained herein may be time sensitive. Kypha information has been compiled for use by healthcare practitioners and consumers in the [place] and therefore Kypha does not warrant that uses outside of the [place] are appropriate, unless specifically indicated otherwise. StickyADS.tvs drug information does not endorse drugs, diagnose patients or recommend therapy. StickyADS.tvs drug information is an informational resource designed [...] effective or appropriate for any given patient. Kypha does not assume any responsibility for any aspect of healthcare administered with the aid of information [facility] provides. The information contained herein is not intended to cover all possible uses, directions, precautions, warnings, drug interactions, allergic reactions, or adverse effects. If you have questions about the drugs you are taking, check with your doctor, nurse or pharmacist. Copyright 7117-3153 [employer]. Version: 8.01. Revision Date: 01/03/2013. Emergency Awareness [...] Assistance with quitting is available by contacting 5-782-XJXYMaventus Group IncNOW. This is a free resource providing counseling, [...]
--- OUTSIDE RECORDS SUMMARY | 2025-04-28 11:12 | XMS_ITS | Encounter Summary ---
Author Organization [employer] ([place], [place], [place], [place]) Address [address] [place] [address] Care Team Providers Care Research Interviewer Name Role Phone Unavailable Primary Care Provider Unavailabl e Encounter Details Date Type Department Care Team (Late st Contact Info) Description 12/01/2018 Transcribed Document [facility] [place] [address] [place] [address] ProviderErika MD [address] [place] [address] Social History Tobacco Use Types [...] On: 12/01/2018 13:36 EDT by NAIN JARRETT automotive paint technician Documentation Discharge Date/Time : 12/01/2018 15:13 EDT NAIN JARRETT RN - 12/01/2018 16:34 EDT Patient Disposition, General : Discharge Discharge To : Rehabilitation unit/facility Name of Receiving Facility/Provider : [facility] Mode Of Departure, General Discharge : [...] information provided to patient and discussed at GA. Verbalized understanding. Worker's Compensation Paperwork Completed : NAIN Gomez RN - 12/01/2018 13:36 EDT documented in this encounter Plan of Treatment Not on file documented as of this encounter Visit Diagnoses Not on filedocumented in this encounter
--- OUTSIDE RECORDS SUMMARY | 2025-04-28 11:12 | XMS_ITS | Encounter Summary ---
Author Organization [employer] ([place], [place], [place], [place]) Address [address] [place] [address] Care Team Providers Care Phys Assistant Name Role Phone Unavailable Primary Care Provider Unavailabl e Encounter Details Date Type Department Care Team (Late st Contact Info) Description 11/25/2018 Transcribed Document [facility] [place] [address] [place] [address] ProviderrEika MD [address] [place], [place] [id number] Social History Tobacco Use Types Packs/Day Years [...] 1940 Associated Diagnoses: CAD (coronary artery disease), [place] coronary artery; Thrombocytopenia; Coronary artery disease; HTN [...] left upper extremity swelling. Integumentary: Warm, Dry, [place], incision is C/D/I. Neurologic: Alert, left sided [...] of discharge- CM has sent information to [facility] -[facility] 11/24/18 -POD#8 -Awaiting [facility] to [facility] -Awaiting response from [facility] 11/25/18 -left upper extremity venous doppler - doppler this am positive for LUE DVT - will start coumadin and heparin bridge -awaiting [facility] EF 55-60% per echo 11/16/18 DVT Prophylaxis: SCDs Diagnosis CAD (coronary artery disease), [place] coronary artery - Admitting, Medical. Thrombocytopenia - [...] Medical. Electronically signed by Christina Saini Conversion Research Quality Assurance Analyst Cerner at 12/08/2022 12:35 PM CDT documented in this encounter Plan of Treatment Not on file documented as of this encounter Visit Diagnoses Not on filedocumented in this encounter
--- OUTSIDE RECORDS SUMMARY | 2025-04-28 11:12 | XMS_ITS | Encounter Summary ---
Author Organization Healthcare Address [address] [place] [address] Care Team Providers Care Middle School French Teacher Name Role Phone Sanjuana Valdez APRN Primary Care Provider [phone] Clifford Horner MD Primary Care Provider [phone] Encounter Details Date Type Department Care Team (Late st Contact Info) Description 06/02/2022 Community [facility] Community Practice [address] [place] [address] Joanna Zamora, DPM [address] [place], [place] [id number] Contracture of left ankle (Primary Dx); Contracture [...] foot documented in this encounter Care Teams Middle [employer] French Teacher Relationship Specialty Start Date End Date Sanjuana Valdez APRN [address] [place] [address] PCP - General 01/04/21 07/13/24 Clifford Horner MD [address] [place] [address] PCP - General 07/14/24 documented as of this encounter
--- OUTSIDE RECORDS SUMMARY | 2025-04-28 11:12 | XMS_ITS | Encounter Summary ---
Author Organization [employer] ([place], [place], [place], [place]) Address [address] [place] [address] Care Team Providers Care Resource Coordinator Name Role Phone Unavailable Primary Care Provider Unavailabl e Encounter Details Date Type Department Care Team (Late st Contact Info) Description 12/01/2018 Transcribed Document [facility] Family Medicine [facility] [place] [address] ProviderErika MD [address] [place] [address] Social History Tobacco Use [...] Jose MD - 12/01/2018 1:32 PM CDT [address] [address] Patient Copy Patient Information: Name: DOTTIE VILLASENOR Current Date: 12/01/2018 13:32:25 : 1940 Patient Address: [address] [place] [id number] Patient Attending Physician: JULIO CESAR CARVALHO MD-CAT Primary Care Provider: DEMETRICE ARMIJO NP-[facility] Primary Care Provider Discharge Diagnosis: Acute blood loss anemia; Aortic insufficiency; Coronary artery disease; GI bleed; LUE DVT (deep venous thrombosis); Right MCA CVA (cerebral vascular accident); Thoracic ascending aortic aneurysm Weight on Admission: 174 lb, 5 oz Weight at Discharge: 159 lb Comment: Follow-up Instructions: With: Address: When: DEMETRICE ARMIJO [address] [place], [place] [id number] Within 1 week Comments: When you are discharged from [facility] please call to make a 1 week hospital follow-up appointment. With: Address: When: JULIO CESAR DEY [address] [place] [address] Business (1) 1:15 PM With: Address: When: JULIO CESAR CARVALHO [address] [place] [address] Business (1) Within 2 weeks With: Address: When: JOHN BOWEN [address] [place] [address] Business (1) Within 6 weeks Comments: Patient should call for a follow up appointment with [facility]. Discharge Instructions: Driving after Discharge: Do not drive, Other: No driving or operating heavy machinery until released by a physician. Community Services: Outpt Cardiac Rehab [facility] [phone] They will call pt w/ appt time. [...] 09/17/2005 Document Revised: 01/15/2017 Document Reviewed: 02/10/2014 [employer] Interactive Patient Education ? 2017 [employer]. CIGARETTE SMOKING: The facts are clear, cigarette smoking will shorten your life. Smoking can cause many illnesses along the way. As a healthcare provider, we recommend that you stop smoking. Assistance with quitting is available by contacting 8-427-OIFP-NOW. This is a free resource providing counseling, [...] Be sure to sign up for the [facility] patient portal, which gives you 16/03 access to your medical information ??? including these discharge instructions ??? using your computer, smartphone, or tablet. Just go to [employer] to get started. Questions? Call . [facility] would like to thank you for allowing us to assist you with your healthcare needs. HAMILTON Jarvis ROBERT H, (or sales representative marine supplies) have received the above patient education materials/instructions and have verbalized understanding: Patient Signature _ Date/Time Patient Windshield Repair Technician Signature (if needed) Date/Time Clinician/Hospital Windshield Repair Technician Signature (if needed) Date/Time documented in this encounter Plan of Treatment Not on file documented as of this encounter Visit Diagnoses Not on filedocumented in this encounter
--- OUTSIDE RECORDS SUMMARY | 2025-04-28 11:12 | XMS_ITS | Encounter Summary ---
Author Organization [employer] ([place], [place], [place], [place]) Address [address] [place] [address] Care Team Providers Care Licensed Veterinary Technician Name Role Phone Unavailable Primary Care Provider Unavailabl e Encounter Details Date Type Department Care Team (Late st Contact Info) Description 11/18/2018 Transcribed Document [facility] [place] [address] [place] [address] ProviderErika MD [address] [place] [address] Social History Tobacco Use Types [...] Initial Visit : Yes Referred by : Medical Records Assistant initiated Referral Reason Comment : Post-op visit Ministry Provided to : Patient, Family/Significant other Quaker Preference : Sabianism MARCOS GASCA P - 11/18/2018 10:51 EDT [...] other supported, Relationship strengths identified Spiritual and Quaker : Prayer shared, Spiritual/Quaker support provided MARCOS GASCA P - 11/18/2018 10:51 EDT documented in this encounter Plan of Treatment Not on file documented as of this encounter Visit Diagnoses Not on filedocumented in this encounter
--- OUTSIDE RECORDS SUMMARY | 2025-04-28 11:12 | XMS_ITS | Encounter Summary ---
Author Organization [employer] ([place], [place], [place], [place]) Address [address] [place] [address] Care Team Providers Care Geothermal Technician Name Role Phone Unavailable Primary Care Provider Unavailabl e Encounter Details Date Type Department Care Team (Late st Contact Info) Description 11/18/2018 Transcribed Document [facility] [place] [address] [place] [address] ProviderErika MD [address] [place] [address] Social History Tobacco Use Types [...] Source : Measured Height Entry Format : [place] Height, Feet : 6 ft Height, Inches [...]
--- OUTSIDE RECORDS SUMMARY | 2025-04-28 11:12 | XMS_ITS | Encounter Summary ---
Author Organization [employer] ([place], [place], [place], [place]) Address [address] [place] [address] Care Team Providers Care Saxophone Assembler Name Role Phone Unavailable Primary Care Provider Unavailabl e Encounter Details Date Type Department Care Team (Late st Contact Info) Description 11/18/2018 Transcribed Document [facility] [place] [address] [place] [address] ProviderErika MD [address] [place] [address] Social History Tobacco Use Types [...]
--- OUTSIDE RECORDS SUMMARY | 2025-04-28 11:12 | XMS_ITS | Encounter Summary ---
Author Organization [employer] ([place], [place], [place], [place]) Address [address] [place] [address] Care Team Providers Care Vasc Tech Name Role Phone Unavailable Primary Care Provider Unavailabl e Encounter Details Date Type Department Care Team (Late st Contact Info) Description 11/18/2018 Transcribed Document [facility] [place] [address] [place] [address] ProviderErika MD [address] [place] [address] Social History Tobacco Use Types Packs/Day Years Used Date Smoking Tobacco: Never Assessed Sex and Gender Information Value Date Recorded Sex Assigned at Not on file Legal Sex Male 5:03 PM CDT Gender Identity Not on file Sexual Orientation Not on file documented as of this encounter Miscellaneous Notes * Cerner Conversion Note - Historical ProviderMD - 11/18/2018 2:00 AM CDT Loft Worker Apprentice Details Entered On: 11/18/2018 4:41 EDT Performed [...] EDT Electronically signed by Christina Saini Conversion Hoop Flaring Machine Operator Cerner at 12/08/2022 12:31 PM CDT documented in this encounter Plan of Treatment Not on file documented as of this encounter Visit Diagnoses Not on filedocumented in this encounter
--- OUTSIDE RECORDS SUMMARY | 2025-04-28 11:12 | XMS_ITS | Clinical Summary ---
Author Organization [facility] Address [address] [place] [phone] Phone Care Team Providers Care Manager Video Games Name Role Phone Svitlana Manley MD Primary Care Provider [phone] Social History Tobacco Use Types Packs/Day Years [...] [place] PART A [place] B Care Teams Manager Video Games Relationship Specialty Start Date End Date Svitlana Manley MD [address] [place] [phone] PCP - General Family Medicine 04/10/16
--- OUTSIDE RECORDS SUMMARY | 2025-04-28 11:12 | XMS_ITS | Encounter Summary ---
Author Organization [employer] ([place], [place], [place], [place]) Address [address] [place] [address] Care Team Providers Care Law Office Receptionist Name Role Phone Unavailable Primary Care Provider Unavailabl e Encounter Details Date Type Department Care Team (Late st Contact Info) Description 11/25/2018 Transcribed Document [facility] [place] [address] [place] [address] ProviderErika MD [address] [place] [address] Social History Tobacco Use Types [...] at goal rate. Did have BM yesterday. IC DESIGNER CUSTOM okayed pt for po diet this am- [...] (11/24) BMI: 23 IBW: 79kg/100% EST NEEDS: 8685-5440 kcal (25-30kcal/kg), 95g pro (1.2g/kg) DAVION GREEN [...]
--- OUTSIDE RECORDS SUMMARY | 2025-04-28 11:12 | XMS_ITS | Encounter Summary ---
Author Organization [employer] ([place], [place], [place], [place]) Address [address] [place] [address] Care Team Providers Care Head Machinist Name Role Phone Unavailable Primary Care Provider Unavailabl e Encounter Details Date Type Department Care Team (Late st Contact Info) Description 11/25/2018 Transcribed Document [facility] [place] [address] [place] [address] ProviderErika MD [address] [place] [address] Social History Tobacco Use Types [...]
--- OUTSIDE RECORDS SUMMARY | 2025-04-28 11:12 | XMS_ITS | Encounter Summary ---
Author Organization [employer] ([place], [place], [place], [place]) Address [address] [place] [address] Care Team Providers Care Denture Contour Wire Specialist Name Role Phone Unavailable Primary Care Provider Unavailabl e Encounter Details Date Type Department Care Team (Late st Contact Info) Description 11/25/2018 Transcribed Document [facility] [place] [address] [place] [address] ProviderErika MD [address] [place] [address] Social History Tobacco Use Types [...]
--- OUTSIDE RECORDS SUMMARY | 2025-04-28 11:12 | XMS_ITS | Clinical Summary ---
Author Organization [facility] Address [address] [place] [address] Care Team Providers Care Back Filler Operator Name Role Phone Clifford Horner MD Primary Care Provider [phone] Allergies No known active allergies Medications dutasteride [...] Done Comments [facility]-Medicare Annual Wellness (AWV) 1940 [facility]-/Child/Adol SDOH Screenings 1940 [facility]- SDOH Screenings 1957 [facility]-Adult SDOH Screenings 1957 [facility]-DTaP,Tdap,and Td Vaccine s (1 - Tdap) 1958 [facility]-RSV Vaccine: 60+ Years o r (1 - 1-dose 75+ series) 2014 [id number] Vaccine (3 - Moderna risk series) 02/11/2021 [...] complete this topic Insurance MEDICARE Care Teams Back Filler Operator Relationship Specialty Start Date End Date Clifford Horner MD [address] [facility] [address] [place] [address] PCP - General 07/14/24
--- OUTSIDE RECORDS SUMMARY | 2025-04-28 11:12 | XMS_ITS | Encounter Summary ---
Author Organization [employer] ([place], [place], [place], [place]) Address [address] [place] [address] Care Team Providers Care Control Room Operator Name Role Phone Unavailable Primary Care Provider Unavailabl e Encounter Details Date Type Department Care Team (Late st Contact Info) Description 11/25/2018 Transcribed Document [facility] [place] Family [place] [address] [place] [address] ProviderErika MD [address] [place] [address] Social History Tobacco Use Types [...]
--- OUTSIDE RECORDS SUMMARY | 2025-04-28 11:12 | XMS_ITS | Encounter Summary ---
Author Organization [employer] ([place], [place], [place], [place]) Address [address] [place] [address] Care Team Providers Care Cigarette Package Examiner Name Role Phone Unavailable Primary Care Provider Unavailabl e Encounter Details Date Type Department Care Team (Late st Contact Info) Description 12/01/2018 Transcribed Document [facility] [place] Family Medicine [address] [place] [address] ProviderErika MD [address] [place] [address] Social History Tobacco Use Types [...] of the following: ??? Sudden syndrome (SIDS). ? Respiratory infections. ? Lung [...] contain harmful chemicals. FOR MORE INFORMATION ??? [place] [employer]: www.lung.org ??? [place] [employer]: www.cancer.org This information is not intended to replace advice given to you by your health care provider. Make sure you discuss any questions you have with your health care provider. Document Released: 09/17/2005 Document Revised: 12/01/2016 Document Reviewed: 01/30/2014 [employer] Interactive Patient Education ? 2017 [employer] How to Take Your Blood Pressure [...] 07/23/2009 Document Revised: 08/31/2015 Document Reviewed: 10/05/2014 [employer] Interactive Patient Education ? 2017 [employer]. How to Take a Pulse Your [...] 02/14/2004 Document Revised: 02/27/2017 Document Reviewed: 01/13/2017 [employer] Interactive Patient Education ? 2017 [employer] Coronary Artery Bypass Grafting, Care After [...] 02/27/2006 Document Revised: 08/31/2015 Document Reviewed: 01/17/2014 [employer] Interactive Patient Education ? 2017 [employer] Bleeding Precautions When on Anticoagulant Therapy [...] can be dangerous for you. ??? Many tfsm-poq-nyhyzdd medicines for pain, colds, or stomach problems [...] provider. Document Released: 07/21/2016 Document Reviewed: 07/21/2016 [employer] Interactive Patient Education ? 2017 [employer] Atrial Fibrillation Introduction Atrial fibrillation is [...] Follow these instructions at home: ??? Take cyyb-lnz-tgcfhku and prescription medicines only as told by [...] 02/10/2014 Elsevier Interactive Patient Education ? 2017 [employer] documented in this encounter Plan of Treatment Not on file documented as of this encounter Visit Diagnoses Not on filedocumented in this encounter
--- OUTSIDE RECORDS SUMMARY | 2025-04-28 11:12 | XMS_ITS | Encounter Summary ---
Author Organization [employer] ([place], [place], [place], [place]) Address [address] [place] [address] Care Team Providers Care Electronic Warfare Specialist Name Role Phone Unavailable Primary Care Provider Unavailabl e Encounter Details Date Type Department Care Team (Late st Contact Info) Description 11/18/2018 Transcribed Document [facility] [place] [address] [place] [address] ProviderErika MD [address] [place] [address] Social History Tobacco Use Types [...]
--- OUTSIDE RECORDS SUMMARY | 2025-04-28 11:12 | XMS_ITS | Encounter Summary ---
Author Organization [employer] ([place], [place], [place], [place]) Address [address] [place] [address] Care Team Providers Care Gyroscopic Instrument Tester Name Role Phone Unavailable Primary Care Provider Unavailabl e Encounter Details Date Type Department Care Team (Late st Contact Info) Description 11/18/2018 Transcribed Document [facility] [place] [address] [place] [address] ProviderErika MD [address] [place] [address] Social History Tobacco Use Types [...] on Osmolite 1.5 @ 50m/hr + 1 [id number] daily advancing toward goal of 60ml/hr + 1 [id number] daily. No ICHTHYOLOGY TEACHER consult noted, discussed if any concern [...] midline incision; chest tube 370ml GI: LBM DRAMATIC TEACHER (admit 11/16), hypoactive BS, +NGT Nutrition Support: Osmolite 1.5 @ 60ml/hr + 1 [id number] daily, water flush 10ml q1hr HT: 185cm (6'1) ADMIT WT: 79kg/174# Current Wt: 81.6kg (11/17), 82.4kg (11/18) BMI: 23 IBW: 79kg/100% EST NEEDS: 7729-8699 kcal (25-30kcal/kg), 95g pro (1.2g/kg) Bev Olvera [...] TF: Osmolite 1.5 @ 60ml/hr + 1 [id number] daily (provides 2040 kcal, 98g pro). FW per MD. goal: provide nutrition, meet est needs 2. As medically able, recommend swallow eval if appropriate; rec (cardiac) w/consistencies per ICHTHYOLOGY TEACHER. RD will monitor need for supplement. goal: [...]
--- OUTSIDE RECORDS SUMMARY | 2025-04-28 11:12 | XMS_ITS | Encounter Summary ---
Author Organization [employer] ([place], [place], [place], [place]) Address [address] [place] [address] Care Team Providers Care Wood Bucker Name Role Phone Unavailable Primary Care Provider Unavailabl e Encounter Details Date Type Department Care Team (Late st Contact Info) Description 11/25/2018 Transcribed Document [facility] [place] Family Medicine [address] [place] [address] ProviderErika MD [address] [place] [address] Social History Tobacco Use Types [...]
--- OUTSIDE RECORDS SUMMARY | 2025-04-28 11:12 | XMS_ITS | Encounter Summary ---
Author Organization [employer] ([place], [place], [place], [place]) Address [address] [place] [address] Care Team Providers Care Global Supply Chain Director Name Role Phone Unavailable Primary Care Provider Unavailabl e Encounter Details Date Type Department Care Team (Late st Contact Info) Description 11/18/2018 Transcribed Document [facility] Cardiology [address] [place] [address] Lc Armendariz MD [address] [facility] [address] [place] [address] Social History Tobacco Use Types [...] mg, Oral, At Bedtime saliva substitutes: 1 [place], Buccal, Q2H, PRN: Other (See Comment) sodium [...] of motion, Normal strength. Integumentary: Warm, Dry, [place]. Neurologic: Alert, Oriented. Psychiatric: Cooperative, Appropriate mood & affect. Results Review NOV 18 03:37 138 106 19 / H 200 3.8 27 0.90 \ NOV 18 03:37 \ L 10.2 / H 17.7 L 103 / L 30.3 \ Cardiac Markers (Current Encounter/Past 24 Hours) No Cardiac Marker Results Found (Past 24 Hours) Radiology Results (Last 48 hours) [id number] -- 11/16/2018 06:45 CR Chest 1 Vw Portable (11/16/2018 12:55) Result: PORTABLE CHEST HISTORY: Pneumothorax.COMPARISON: 1 day prior.FINDINGS: The heart is stable in size. The patient is status post mediansternotomy. The endotracheal tube is in the mid thoracic trachea. Anasogastric tube extends below the diaphragm. Left-sided [place]-Ganzcatheter tip is in the left main pulmonary [...] day.FINDINGS: The heart is normal in size. [place]ov[place] catheter tips in theleft pulmonary artery. There [...]
--- OUTSIDE RECORDS SUMMARY | 2025-04-28 11:12 | XMS_ITS | Clinical Summary ---
Author Organization [employer] ([place], [place], [place], [place]) Address [address] [place] [address] Care Team Providers Care Manager Leadership Development Name Role Phone Unavailable Primary Care Provider [...]
--- OUTSIDE RECORDS SUMMARY | 2025-04-28 11:12 | XMS_ITS | Encounter Summary ---
Author Organization [employer] ([place], [place], [place], [place]) Address [address] [place] [address] Care Team Providers Care Patient Day Coordinator Name Role Phone Unavailable Primary Care Provider Unavailabl e Encounter Details Date Type Department Care Team (Late st Contact Info) Description 11/25/2018 Transcribed Document [facility] [place] [address] [place] [address] ProviderErika MD [address] [place], [place] [id number] Social History Tobacco Use Types Packs/Day Years [...] Tab, Oral, At Bedtime saliva substitutes, 1 [place], Buccal, Q2H, PRN Senokot, 17.2 mg= 2 Tab, Oral, BID warfarin, 5 mg= 1 Tab, Oral, Daily Zofran, 4 mg= 2 mL, IV Push, Q4H, PRN Electronically signed by Parveen, [facility] Conversion Snow Removal/Plowing Cerner at 12/08/2022 12:38 PM CDT documented in this encounter Plan of Treatment Not on file documented as of this encounter Visit Diagnoses Not on filedocumented in this encounter
--- OUTSIDE RECORDS SUMMARY | 2025-04-28 11:12 | XMS_ITS | Encounter Summary ---
Author Organization [employer] ([place], [place], [place], [place]) Address [address] [place] [address] Care Team Providers Care Market President Name Role Phone Unavailable Primary Care Provider Unavailabl e Encounter Details Date Type Department Care Team (Late st Contact Info) Description 11/18/2018 Transcribed Document [facility] [place] [address] [place] [address] ProviderErika MD [address] [place] [address] Social History Tobacco Use Types [...] : 11/17/2018 00:00 Atherosclerotic heart disease of [place] coronary artery without angina pectoris 11/17/2018 00:00 Essential (primary) hypertension 11/17/2018 00:00 Hypothyroidism, unspecified 11/17/2018 00:00 Nonrheumatic aortic (valve) insufficiency 11/17/2018 00:00 Restless legs syndrome 11/17/2018 00:00 Thoracic aortic aneurysm, without rupture 11/17/2018 00:00 Thrombocytopenia, unspecified 11/16/2018 00:00 Atherosclerotic heart disease of [place] coronary artery without angina pectoris 11/16/2018 00:00 [...] SENIA QUINTANA PTA - 11/23/2018 10:24 EDT [facility] Goals Mobility/Bed Mobility LTG PT Grid Goal [...] SENIA QUINTANA PTA - 11/23/2018 10:24 EDT [place] PT Charges PT Therap. Exercise 15 min : 1 PT Ther Activities Ea 15 Min : 1 SENIA QUINTANA PTA - 11/23/2018 10:24 EDT documented in this encounter Plan of Treatment Not on file documented as of this encounter Visit Diagnoses Not on filedocumented in this encounter
--- OUTSIDE RECORDS SUMMARY | 2025-04-28 11:12 | XMS_ITS | Encounter Summary ---
Author Organization [employer] ([place], [place], [place], [place]) Address [address] [place] [address] Care Team Providers Care Senior Principal Architect Name Role Phone Unavailable Primary Care Provider Unavailabl e Encounter Details Date Type Department Care Team (Late st Contact Info) Description 11/25/2018 Transcribed Document [facility] [place] [address] [place] [address] ProviderErika MD [address] [place] [address] Social History Tobacco Use Types [...] On: 11/25/2018 12:20 EDT by THERESA CAZARES [facility] Clinical Interventions Heparin Per Weight-Based Protocol : Yes THERESA CAZARES [facility] - 11/25/2018 12:20 EDT Heparin Per [...] 11/25/2018 12:20 EDT Electronically signed by Parveen [facility] Conversion Birth Attendant Cerner at 12/08/2022 12:35 PM CDT documented in this encounter Plan of Treatment Not on file documented as of this encounter Visit Diagnoses Not on filedocumented in this encounter
--- OUTSIDE RECORDS SUMMARY | 2025-04-28 11:12 | XMS_ITS | Encounter Summary ---
Author Organization [employer] ([place], [place], [place], [place]) Address [address] [place] [address] Care Team Providers Care Roofing Supervisor Name Role Phone Unavailable Primary Care Provider Unavailabl e Encounter Details Date Type Department Care Team (Late st Contact Info) Description 11/18/2018 Transcribed Document [facility] [place] Family Medicine [address] [place] [address] ProviderErika MD [address] [place], [place] [id number] Social History Tobacco Use Types Packs/Day Years [...] 1940 Associated Diagnoses: CAD (coronary artery disease), [place] coronary artery; Thrombocytopenia; Coronary artery disease; HTN [...] S1, S2, No edema. Integumentary: Warm, Dry, [place], incision is C/D/I. Neurologic: Alert, he did [...] Prophylaxis: SCDs Diagnosis CAD (coronary artery disease), [place] coronary artery - Admitting, Medical. Thrombocytopenia - Working, Medical. Coronary artery disease - Discharge, Medical. HTN (hypertension) - Pre-Op Diagnosis, Medical. Hypothyroidism - Pre-Op Diagnosis, Medical. Aortic insufficiency - Admitting, Medical. Aortic insufficiency - Discharge, Medical. RLS (restless legs syndrome) - Pre-Op Diagnosis, Medical. Thoracic ascending aortic aneurysm - Admitting, Medical. Thoracic ascending aortic aneurysm - Discharge, Medical. Electronically signed by Parveen, [facility] Conversion Photo Lab Manager Cerner at 12/08/2022 12:19 PM CDT documented in this encounter Plan of Treatment Not on file documented as of this encounter Visit Diagnoses Not on filedocumented in this encounter
--- OUTSIDE RECORDS SUMMARY | 2025-04-28 11:12 | XMS_ITS | Encounter Summary ---
Author Organization [employer] ([place], [place], [place], [place]) Address [address] [place] [address] Care Team Providers Care Quill Machine Tender Name Role Phone Unavailable Primary Care Provider Unavailabl e Encounter Details Date Type Department Care Team (Late st Contact Info) Description 11/25/2018 Transcribed Document [facility] [place] [address] [place] [address] ProviderErika MD [address] [place] [address] Social History Tobacco Use Types [...] Time of Assessment : 11/25/2018 9:00 EDT [facility] Clinician Administering Scale : Elissa Rodarte [...]
--- OUTSIDE RECORDS SUMMARY | 2025-04-28 11:13 | XMS_ITS | Encounter Summary ---
Author Organization [employer] ([place], [place], [place], [place]) Address [address] [place] [address] Care Team Providers Care Croze Cutter Helper Name Role Phone Unavailable Primary Care Provider Unavailabl e Encounter Details Date Type Department Care Team (Late st Contact Info) Description 11/15/2018 Transcribed Document [facility] [place] [address] [place] [address] ProviderErika MD [address] [place] [address] Social History Tobacco Use Types [...] Source : Measured Height Entry Format : [place] Height, Feet : 6 ft(Converted to: 183 cm, 72 Inch) Height, Inches : 1 Inch(Converted to: 0 ft 1 Inch, 2.54 cm) Clinical Height : 185.42 cm Weight Source : Standing scale Weight Entry Format : [place] Clinical Dosing Weight : 79.23 kg Weight, Pounds : 174 lb Weight, Ounces : 5 oz Body Surface Area (BSA) : 2.03 m2 Body Mass Index : 23 kg/m2 [place] Body Weight : 79 kg ANGELA KEY [...] Ambulatory Legal Guardian : Spouse Support Person/Patient Sports Management Intern : Yes Support Person/Pt Rep Name : Connie- Sumeet - son Support Person/Pt Rep Contact Information : [phone] home [phone] - cell Want Family/Rep/Phys Notified of Admit : No Emergency Contact #1 : Connie Emergency Contact #1 Emergency Contact #1 Relationship : Emergency Contact #2 : Smueet Emergency Contact #2 Emergency Contact #2 Relationship [...] 11/15/2018 13:52 EDT Electronically signed by Parveen [facility] Conversion Tent Assembler Cerner at 12/08/2022 12:30 PM CDT documented in this encounter Plan of Treatment Not on file documented as of this encounter Visit Diagnoses Not on filedocumented in this encounter
--- OUTSIDE RECORDS SUMMARY | 2025-04-28 11:13 | XMS_ITS | Encounter Summary ---
Author Organization [employer] ([place], [place], [place], [place]) Address [address] [place] [address] Care Team Providers Care Underwater Roboticist Name Role Phone Unavailable Primary Care Provider Unavailabl e Encounter Details Date Type Department Care Team (Late st Contact Info) Description 11/24/2018 Transcribed Document [facility] [place] [address] [place] [address] ProviderErika MD [address] [place], [place] [id number] Social History Tobacco Use Types Packs/Day Years [...] 1940 Associated Diagnoses: CAD (coronary artery disease), [place] coronary artery; Thrombocytopenia; Coronary artery disease; HTN [...] S1, S2, No edema. Integumentary: Warm, Dry, [place], incision is C/D/I. Neurologic: Alert, left sided [...] of discharge- CM has sent information to [facility] -Transfer to [facility] 11/24/18 -POD#8 -Awaiting transfer to [facility] -Awaiting response from [facility] EF 55-60% per echo 11/16/18 DVT Prophylaxis: SCDs Diagnosis CAD (coronary artery disease), [place] coronary artery - Admitting, Medical. Thrombocytopenia - [...] - Discharge, Medical. Electronically signed by Interface, [facility] Conversion Floor Molder Cerner at 12/08/2022 12:10 PM CDT documented in this encounter Plan of Treatment Not on file documented as of this encounter Visit Diagnoses Not on filedocumented in this encounter
--- OUTSIDE RECORDS SUMMARY | 2025-04-28 11:13 | XMS_ITS | Encounter Summary ---
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
--- OUTSIDE RECORDS SUMMARY | 2025-04-28 11:13 | XMS_ITS | Encounter Summary ---
Author Organization [employer] ([place], [place], [place], [place]) Address [address] [place] [address] Care Team Providers Care Corporate Strategy Analyst Name Role Phone Unavailable Primary Care Provider Unavailabl e Encounter Details Date Type Department Care Team (Late st Contact Info) Description 11/23/2018 Transcribed Document [facility] [place] [address] [place] [address] ProviderErika MD [address] [place] [address] Social History Tobacco Use Types [...]
--- OUTSIDE RECORDS SUMMARY | 2025-04-28 11:13 | XMS_ITS | Encounter Summary ---
Author Organization [employer] ([place], [place], [place], [place]) Address [address] [place] [address] Care Team Providers Care Junior Data Analyst Name Role Phone Unavailable Primary Care Provider Unavailabl e Encounter Details Date Type Department Care Team (Late st Contact Info) Description 12/01/2018 Transcribed Document [facility] [place] Family Medicine [address] [place] [address] ProviderErika MD [address] [place] [address] Social History Tobacco Use Types [...] Jose MD - 12/01/2018 3:00 PM CDT [facility] [place] [address] VILLASENOR DOTTIE Pickering :1940 Visit Time:11/16/2018 Your Visit Summary Your Care Team Admitting Physician - JULIO CESAR CARVALHO MD-CAT Attending Physician - JULIO CESAR CARVALHO MD-YADIRA Primary Care Physician - DEMETRICE ARMIJO NP-FAM Referring Physician - DEMETRICE ARMIJO NP-FAM Your Diagnosis Acute blood loss anemia Aortic insufficiency, Aortic insufficiency CAD (coronary artery disease), [place] coronary artery, Coronary artery disease GI bleed [...] do next Instructions From Your Care Team [facility]-Stroke Unit RN report #[phone] DC Summary #[phone] You may shower. Make sure your back [...] IF you have a fever greater than [id number], call the surgeon. DO NOT drive for [...] Where: [address] [place] [address]- Business (1) Follow Up with JULIO CESAR CARVALHO When 12/15/2018 12:15 PM EDT Where: [address] [place] [address] Business (1) Follow Up with DEMETRICE ARMIJO When Within 1 week Comments When you are discharged from [facility] please call to make a 1 week hospital follow-up appointment. Where: [address] [place] [address]- Follow Up with JOHN BOWEN When Within 6 weeks Comments Patient should call for a follow up appointment with [facility]. Where: [address] [place] [address]- Business (1) Medications What How [...] contain harmful chemicals. FOR MORE INFORMATION ??? [place] [employer]: www.lung.org ??? [place] [employer]: www.cancer.org This information is not intended to replace advice given to you by your health care provider. Make sure you discuss any questions you have with your health care provider. Document Released: 09/17/2005 Document Revised: 12/01/2016 Document Reviewed: 01/30/2014 [employer] Interactive Patient Education ?? 2017 [employer]. How to Take Your Blood Pressure HOW [...] 02/14/2004 Document Revised: 02/27/2017 Document Reviewed: 01/13/2017 [employer] Interactive Patient Education ?? 2017 [employer] Coronary Artery Bypass Grafting, Care After [...] 02/27/2006 Document Revised: 08/31/2015 Document Reviewed: 01/17/2014 [employer] Interactive Patient Education ?? 2017 [employer] Bleeding Precautions When on Anticoagulant Therapy [...] can be dangerous for you. ??? Many uqwm-lcu-liqzdfv medicines for pain, colds, or stomach problems [...] provider. Document Released: 07/21/2016 Document Reviewed: 07/21/2016 [employer] Interactive Patient Education ?? 2017 [employer] Atrial Fibrillation Introduction Atrial fibrillation is [...] Follow these instructions at home: ??? Take hozl-bnj-ylfgduz and prescription medicines only as told by [...] 09/17/2005 Document Revised: 01/15/2017 Document Reviewed: 02/10/2014 [employer] Interactive Patient Education ?? 2017 XIHA. misoprostol (reji ramos) [facility] What is the most important [...] disease; or ?? if you are dehydrated. [facility] category X. Misoprostol can cause defects, premature [...] may report side effects to FDA at 2-357-WHF-1512. What other drugs will affect misoprostol? Other drugs may interact with misoprostol, including prescription and mmhn-gqk-nawghfr medicines, vitamins, and herbal products. Tell each [...] to ensure that the information provided by Section 101. ('Mult[employer]') is accurate, up-to-date, and complete, but no guarantee is made to that effect. Drug information contained herein may be time sensitive. [employer] information has been compiled for use by healthcare practitioners and consumers in the [place] and therefore [employer] does not warrant that uses outside of the [place] are appropriate, unless specifically indicated otherwise. [employer] drug information does not endorse drugs, diagnose patients or recommend therapy. [employer] drug information is an informational resource designed [...] effective or appropriate for any given patient. [facility] does not assume any responsibility for any aspect of healthcare administered with the aid of information [facility] provides. The information contained herein is not intended to cover all possible uses, directions, precautions, warnings, drug interactions, allergic reactions, or adverse effects. If you have questions about the drugs you are taking, check with your doctor, nurse or pharmacist. Copyright 2998-9153 [facility]. Version: 8.01. Revision Date: 03/02/2014.sucralfate (oral) [...] may report side effects to FDA at 9-316-MBQ-5289. What other drugs will affect sucralfate? Sucralfate can make it harder for your body to absorb other medications you take by mouth. Avoid taking any other medications within 2 hours before or after you take sucralfate. Other drugs may interact with sucralfate, including prescription and chxe-gwq-nedzlsf medicines, vitamins, and herbal products. Tell each [...] to ensure that the information provided by Section 101. ('[employer]') is accurate, up-to-date, and complete, but no guarantee is made to that effect. Drug information contained herein may be time sensitive. [employer] information has been compiled for use by healthcare practitioners and consumers in the [place] and therefore [employer] does not warrant that uses outside of the [place] are appropriate, unless specifically indicated otherwise. [employer] drug information does not endorse drugs, diagnose patients or recommend therapy. [employer] drug information is an informational resource designed [...] effective or appropriate for any given patient. [employer] does not assume any responsibility for any aspect of healthcare administered with the aid of information [employer] provides. The information contained herein is not intended to cover all possible uses, directions, precautions, warnings, drug interactions, allergic reactions, or adverse effects. If you have questions about the drugs you are taking, check with your doctor, nurse or pharmacist. Copyright 0792-6158 Section 101. Version: 8.01. Revision Date: 01/03/2013.sucralfate (oral) (angelica [...] may report side effects to FDA at 2-590-EMI-5001. What other drugs will affect sucralfate? Sucralfate can make it harder for your body to absorb other medications you take by mouth. Avoid taking any other medications within 2 hours before or after you take sucralfate. Other drugs may interact with sucralfate, including prescription and iykx-jgh-wzzdqol medicines, vitamins, and herbal products. Tell each [...] to ensure that the information provided by Section 101. ('Multum') is accurate, up-to-date, and complete, but no guarantee is made to that effect. Drug information contained herein may be time sensitive. [employer] information has been compiled for use by healthcare practitioners and consumers in the [place] and therefore [employer] does not warrant that uses outside of the [place] are appropriate, unless specifically indicated otherwise. [employer] drug information does not endorse drugs, diagnose patients or recommend therapy. [employer] drug information is an informational resource designed [...] effective or appropriate for any given patient. [facility] does not assume any responsibility for any aspect of healthcare administered with the aid of information [facility] provides. The information contained herein is not intended to cover all possible uses, directions, precautions, warnings, drug interactions, allergic reactions, or adverse effects. If you have questions about the drugs you are taking, check with your doctor, nurse or pharmacist. Copyright 4095-4917 Section 101. Version: 8.01. Revision Date: 01/03/2013. Emergency Awareness [...] Assistance with quitting is available by contacting 3-603-DSWZ-NOW. This is a free resource providing counseling, [...] worse. Electronically signed by Parveen, Christina Conversion Cable Installer Repairer Cerner at 12/08/2022 12:20 PM CDT documented in this encounter Plan of Treatment Not on file documented as of this encounter Visit Diagnoses Not on filedocumented in this encounter
--- OUTSIDE RECORDS SUMMARY | 2025-04-28 11:13 | XMS_ITS | Encounter Summary ---
Author Organization [employer] ([place], [place], [place], [place]) Address [address] [place] [address] Care Team Providers Care Dispatcher Tugboat Name Role Phone Unavailable Primary Care Provider Unavailabl e Encounter Details Date Type Department Care Team (Late st Contact Info) Description 11/20/2018 Transcribed Document [facility] [place] Family Medicine [address] [place] [address] ProviderErika MD [address] [place] [address] Social History Tobacco Use Types [...] TORREY ZUNIGA SLP General Information Visit Type, GEODETIC ENGINEER : Initial evaluation Patient Orders : GEODETIC ENGINEER Fxnl Limitation Documentation x 1 -111 Start: 11/20/18 8:39:00 EDT - SYSTEM, SYSTEM GEODETIC ENGINEER Bedside Swallow Evaluation - Start: 11/20/18 8:38:00 EDT, Routine, For Swallow Eval and Treat -111 MICHAEL RODRIGUEZ MD Ordering Provider : MICHAEL RODRIGUEZ MD Admission Date : Admission Date/Time: 11/16/18 06:45:00 Personal Devices : Personal Devices No Devices Recorded Assistive Devices : Assistive Devices No Devices Recorded Active Diagnoses : 11/17/2018 00:00 Atherosclerotic heart disease of [place] coronary artery without angina pectoris 11/17/2018 00:00 Essential (primary) hypertension 11/17/2018 00:00 Hypothyroidism, unspecified 11/17/2018 00:00 Nonrheumatic aortic (valve) insufficiency 11/17/2018 00:00 Restless legs syndrome 11/17/2018 00:00 Thoracic aortic aneurysm, without rupture 11/17/2018 00:00 Thrombocytopenia, unspecified 11/16/2018 00:00 Atherosclerotic heart disease of [place] coronary artery without angina pectoris 11/16/2018 00:00 Nonrheumatic aortic (valve) insufficiency 11/16/2018 00:00 Thoracic aortic aneurysm, without rupture Therapy Diagnosis, GEODETIC ENGINEER : overt signs and symptoms of aspiration at bedside Previous Speech/Language Evaluations : N/A Previous Swallow Precautions : N/A Previous Cognitive Evaluations : N/A Diet/Intake Prior to Current Admission : Regular/thin Diet/Intake During Current Admission : NPO Intubation Comment, GEODETIC ENGINEER : 11/16-11/17 Vital Signs RTF : Vitals [...] Assessment Comment : Nasal cannula 3 L/min TORRYE ZUNIGA GEODETIC ENGINEER - 11/20/2018 9:21 EDT General Status Patient Received Status, GEODETIC ENGINEER : Long sitting in bed Patient Left Status, GEODETIC ENGINEER : Long sitting in bed TORREY ZUNIGA [...] Hoarse, Other: Weak Resonance Types : Appropriate GEODETIC ENGINEER Cough : Weak Facial Appearance: : Symmetrical [...] noted with thin via straw and puree. GEODETIC ENGINEER unable to determine safe diet at bedside, recommend FEES to further assess swallow function. Continue NPO with alternate means of nutrition and meds until FEES. GEODETIC ENGINEER discussed results and recs with patient and family. TORREY ZUNIGA SLP - 11/20/2018 9:26 EDT Impressions, BS Swallow : Signs/Symptoms of pharyngeal dysphagia Swallowing Outcome Measures : Functional Oral Intake Scale (FOIS) Functional Oral Intake Scale (FOIS) : Level I TORREY ZUNIGA GEODETIC ENGINEER - 11/20/2018 9:21 EDT Swallow Recommendations Recommended Diet Type, SwRec : Non-oral feeding, NPO Swallow Position, SwRec : Upright 90 degrees Recommended Med Present, SwRec : Non-oral Recommended Exam, Sw Rec : FEES Repeat Swallow Exam Timeframe : 1-3 days TORREY ZUNIGA SLP - 11/20/2018 9:26 EDT Therapy Indication Assessment GEODETIC ENGINEER Indicated : Yes GEODETIC ENGINEER Problem List : Impaired, Swallowing TORREY ZUNIGA SLP - 11/20/2018 9:26 EDT Swallow Plan/Goals Treatment Frequency, GEODETIC ENGINEER : 4 times per wk Treatment Duration, GEODETIC ENGINEER : Two weeks TORREY ZUNIGA SLP - 11/20/2018 9:26 EDT Swallow LTG Grid GEODETIC ENGINEER Book Or Script Editor Goal #1 Swallow LTG : Establish safe [...] TORREY ZUNIGA SLP - 11/20/2018 9:26 EDT GEODETIC ENGINEER Education Assessment Grid 1 Diet Recommendation : Verbalizes understanding Dysphagia : Verbalizes understanding Non-Oral Nutrition : Verbalizes understanding NPO : Verbalizes understanding TORREY ZUNIGA SLP - 11/20/2018 9:26 EDT GEODETIC ENGINEER Education Assessment Grid 2 Treatment Plan : Verbalizes understanding TORREY ZUNIGA SLP - 11/20/2018 9:[address] [place] GEODETIC ENGINEER Charges Evaluation Swallowing Function : 1 TORREY ZUNIGA SLP - 11/20/2018 9:26 EDT Functional Limitation Reporting, GEODETIC ENGINEER Functional Limitation Visit Type, GEODETIC ENGINEER : Initial evaluation Severity Determination Method, GEODETIC ENGINEER : Clinical Judgment, Swallowing Swallow G8996 - Current Mod, GEODETIC ENGINEER : 80 - 99% impaired, limited or restricted (CM) Swallow G8997 - Proj Goal Mod, GEODETIC ENGINEER : 1 - 19% impaired, limited or restricted (CI) TORREY ZUNIGA SLP - 11/20/2018 9:26 EDT documented in this encounter Plan of Treatment Not on file documented as of this encounter Visit Diagnoses Not on filedocumented in this encounter
--- OUTSIDE RECORDS SUMMARY | 2025-04-28 11:13 | XMS_ITS | Encounter Summary ---
Author Organization [employer] ([place], [place], [place], [place]) Address [address] [place] [address] Care Team Providers Care Dispatch Clerk Name Role Phone Unavailable Primary Care Provider Unavailabl e Encounter Details Date Type Department Care Team (Late st Contact Info) Description 11/05/2018 Transcribed Document [facility] [place] Family Medicine [address] [place] [address] ProviderErika MD [address] [place] [address] Social History Tobacco Use Types [...] you are awake and alert. ??? Take ximj-dzl-rljjxbz and prescription medicines only as told by [...] 05/31/2014 Document Revised: 01/12/2017 Document Reviewed: 11/29/2016 [employer] Interactive Patient Education ? 2017 [employer] Pulmonary Medicine Radial Site Care Introduction [...] 01/11/2014 Elsevier Interactive Patient Education ? 2017 [employer] documented in this encounter Plan of Treatment Not on file documented as of this encounter Visit Diagnoses Not on filedocumented in this encounter
--- OUTSIDE RECORDS SUMMARY | 2025-04-28 11:13 | XMS_ITS | Encounter Summary ---
Author Organization [employer] ([place], [place], [place], [place]) Address [address] [place] [address] Care Team Providers Care Earth Science Teacher Name Role Phone Unavailable Primary Care Provider Unavailabl e Encounter Details Date Type Department Care Team (Late st Contact Info) Description 11/23/2018 Transcribed Document [facility] [place] Family Medicine [address] [place] [address] ProviderErika MD [address] [place], [place] [id number] Social History Tobacco Use Types Packs/Day Years Used Date Smoking Tobacco: Never Assessed Sex and Gender Information Value Date Recorded Sex Assigned at Not on file Legal Sex Male 5:03 PM CDT Gender Identity Not on file Sexual Orientation Not on file documented as of this encounter Miscellaneous Notes * Cerner Conversion Note - Eirka Jose MD - 11/23/2018 1:08 PM CDT [...] S1, S2, No edema. Integumentary: Warm, Dry, [place], incision is C/D/I. Neurologic: Alert, left sided [...] of discharge- MELLISSA has sent information to [facility] -Transfer to 3 east EF 55-60% per [...]
--- OUTSIDE RECORDS SUMMARY | 2025-04-28 11:13 | XMS_ITS | Encounter Summary ---
Author Organization [employer] ([place], [place], [place], [place]) Address [address] [place] [address] Care Team Providers Care Wood Car Builder Name Role Phone Unavailable Primary Care Provider Unavailabl e Encounter Details Date Type Department Care Team (Late st Contact Info) Description 12/01/2018 Transcribed Document [facility] [place] [address] [place] [address] ProviderErika MD [address] [place] [address] Social History Tobacco Use Types [...]
--- OUTSIDE RECORDS SUMMARY | 2025-04-28 11:13 | XMS_ITS | Encounter Summary ---
Author Organization [employer] ([place], [place], [place], [place]) Address [address] [place] [address] Care Team Providers Care Assistant Child Care Teacher Name Role Phone Unavailable Primary Care Provider Unavailabl e Encounter Details Date Type Department Care Team (Late st Contact Info) Description 11/24/2018 Transcribed Document [facility] [place] Family Medicine [address] [place] [address] ProviderErika MD [address] [place] [address] Social History Tobacco Use Types [...] Bed scale Routine Weight Entry Format : [place] Routine Weight, Pounds : 180 lb Routine Weight, Ounces : 8 oz Routine Weight Calculation : 82.05 kg Height Source : Measured Height Entry Format : [place] Height, Feet : 6 ft Height, Inches [...]
--- OUTSIDE RECORDS SUMMARY | 2025-04-28 11:13 | XMS_ITS | Encounter Summary ---
Author Organization [employer] ([place], [place], [place], [place]) Address [address] [place] [address] Care Team Providers Care Adjunct Art History Instructor Name Role Phone Unavailable Primary Care Provider Unavailabl e Encounter Details Date Type Department Care Team (Late st Contact Info) Description 11/16/2018 Transcribed Document [facility] [place] [address] [place] [address] ProviderErika MD [address] [place] [address] Social History Tobacco Use Types Packs/Day Years Used Date Smoking Tobacco: Never Assessed Sex and Gender Information Value Date Recorded Sex Assigned at Not on file Legal Sex Male 5:03 PM CDT Gender Identity Not on file Sexual Orientation Not on file documented as of this encounter Miscellaneous Notes * Cerner Conversion Note - Erika ProviderMD - 11/16/2018 8:20 AM CDT [facility] Main OR IntraOp Summary Primary Physician: JULIO CESAR CARVALHO MD-CAT Finalized Date/Time: 11/17/18 10:03:54 Pt. Name: DOTTIE VILLASENOR D.O.B./Sex: 1940 Male Med Rec #: [id number] Physician: JULIO CESAR CARVALHO MD-CAT Financial #: [id number] Pt. Type: I Room/Bed: [facility] Admit/Disch: 11/16/18 06:45:00 - Institution: [facility] IntraOp Case Attendance Entry 1 Entry 2 Entry 3 Case Attendee JULIO CESAR CARVALHO MD-CAT ALTIZER, LISA E, RN Alton Gamble, acetylene cylinder packing mixer Role Performed Surgeon/Proceduralist, Sterile Processing Technologist, First Senior Oracle Soa Developer First Time In 11/16/18 07:06:00 11/16/18 07:06:00 [...] CAROLYN, RN Role Performed Scrub, First Anesthesiologist Sterile Processing Technologist, Second Time In 11/16/18 07:06:00 11/16/18 07:06:00 [...] [place] Pref Card Builder Role Performed Physician press assistant and feeder Physician press assistant and feeder Sterile Processing Technologist, Second Time In 11/16/18 07:06:00 11/16/18 09:00:00 [...] Attendee Colette Alexander, LISETH Dimas, Alton Gamble, acetylene cylinder packing mixer Pref Card Builder Senior Oracle Soa Developer Role Performed Scrub, First Senior Oracle Soa Developer Senior Oracle Soa Developer Time In 11/16/18 10:32:00 11/16/18 11:05:00 11/16/18 [...] 12:25:17 Entry 13 Case Attendee LISETH ROE, Senior Oracle Soa Developer Role Performed Senior Oracle Soa Developer Time In 11/16/18 12:13:00 Time Out 11/16/18 12:30:00 Procedure Aortic Aneurysm Ascending Repair, CABG w Aortic Valve, Transesophageal Echocardiogram Other Attendee Superficial Wound Closed By: Last Modified By: RADHA VALENCIA, TONJA 11/16/18 12:40:56 [facility] IntraOp Case Attendance Audit 11/16/18 12:40:56 Stack Attendant: ALTIZEL Modifier: ALTIZEL 1 <+> Time Out [...] w Aortic Valve, Transesophageal Echocardiogram 11/16/18 12:25:17 Stack Attendant: ALTIZEL Modifier: ALTIZEL 12 <+> Time Out 12 <*> Procedure Aortic Aneurysm Ascending Repair, CABG w Aortic Valve <+> 13 Case Attendee <+> 13 Role Performed <+> 13 Time In <+> 13 Procedure 11/16/18 11:17:39 Stack Attendant: ALTIZEL Modifier: ALTIZEL <+> 12 Case Attendee <+> 12 Role Performed <+> 12 Time In <+> 12 Procedure 11/16/18 11:17:17 Stack Attendant: ALTIZEL Modifier: ALTIZEL 3 <+> Time Out 3 <*> Procedure Transesophageal Echocardiogram <+> 11 Case Attendee <+> 11 Role Performed <+> 11 Time In <+> 11 Time Out <+> 11 Procedure <+> 11 Other Attendee 11/16/18 10:47:10 Stack Attendant: ALTIZEL Modifier: ALTIZEL <+> 10 Case Attendee <+> 10 Role Performed <+> 10 Time In <+> 10 Time Out <+> 10 Procedure <+> 10 Other Attendee 11/16/18 09:58:31 Stack Attendant: ALTIZEL Modifier: ALTIZEL <+> 1 Procedure <+> 2 Procedure <+> 3 Procedure <+> 4 Procedure <+> 5 Procedure <+> 6 Procedure 7 <*> Procedure Aortic Aneurysm Ascending Repair, CABG w Aortic Valve 8 <*> Procedure Aortic Aneurysm Ascending Repair, CABG w Aortic Valve 9 <*> Procedure Aortic Aneurysm Ascending Repair, CABG w Aortic Valve 11/16/18 09:50:06 Stack Attendant: ALTIZEL Modifier: ALTIZEL 9 <+> Time Out 9 <*> Procedure Aortic Aneurysm Ascending Repair, CABG w Aortic Valve 11/16/18 09:39:14 Stack Attendant: ALTIZEL Modifier: ALTIZEL <+> 9 Case Attendee <+> 9 Role Performed <+> 9 Time In <+> 9 Procedure <+> 9 Other Attendee 11/16/18 09:28:12 Stack Attendant: ALTIZEL Modifier: ALTIZEL <+> 8 Case Attendee <+> 8 Role Performed <+> 8 Time In <+> 8 Procedure 11/16/18 08:24:20 Stack Attendant: ALTIZEL Modifier: ALTIZEL 7 <+> Time Out 7 <*> Procedure Aortic Aneurysm Ascending Repair, CABG w Aortic Valve 11/16/18 08:21:45 Stack Attendant: ALTIZEL Modifier: ALTIZEL <+> 6 Time Out 11/16/18 08:10:59 Stack Attendant: ALTIZEL Modifier: ALTIZEL 6 <*> Time In 11/16/18 07:00:00 <+> 7 Case Attendee <+> 7 Role Performed <+> 7 Time In <+> 7 Procedure 11/16/18 07:19:51 Stack Attendant: ALTIZEL Modifier: ALTIZEL <+> 2 Time In <+> 3 Time In <+> 4 Time In <+> 5 Time In 11/16/18 07:19:37 Stack Attendant: ALTIZEL Modifier: ALTIZEL <+> 1 Time In <+> 2 Case Attendee <+> 2 Role Performed <+> 3 Case Attendee <+> 3 Role Performed <+> 4 Case Attendee <+> 4 Role Performed <+> 5 Case Attendee <+> 5 Role Performed <+> 6 Case Attendee <+> 6 Role Performed <+> 6 Time In [facility] IntraOp Case Times Entry 1 Patient In Room Time 11/16/18 07:06:00 Out Room Time 11/16/18 12:30:00 Anesthesia Start Time 11/16/18 07:06:00 Stop Time 11/16/18 12:30:00 Anesthesia Ready 11/16/18 07:06:00 Surgery / Procedure Times Start Time 11/16/18 08:20:00 Stop Time 11/16/18 12:22:00 Last Modified By: RADHA VALENCIA RN 11/16/18 07:17:32 [facility] IntraOp Case Times Audit 11/16/18 12:30:30 Stack Attendant: ALTIZEL Modifier: ALTIZEL <+> 1 Out Room Time <+> 1 Stop Time <+> 1 Stop Time 11/16/18 08:21:57 Stack Attendant: ALTIZEL Modifier: ALTIZEL <+> 1 Start Time [facility] IntraOp Cautery Entry 1 ESU Identification Cautery Type Monopolar ESU ID Number [id number] ID Type Hospital Number Cautery Settings Cut [...] Modified By: RADHA VALENCIA RN 11/16/18 08:42:12 [facility] IntraOp Communication Entry 1 Entry 2 [...] RN 11/16/18 11:53:58 11/16/18 12:13:00 11/16/18 12:13:00 [facility] IntraOp Communication Audit 11/16/18 12:13:00 Stack Attendant: ALTIZEL Modifier: ALTIZEL <+> 8 Communication By <+> 8 Date and Time <+> 8 Communication To <+> 9 Communication By <+> 9 Date and Time <+> 9 Communication To <+> 9 Comment 11/16/18 11:53:58 Stack Attendant: ALTIZEL Modifier: ALTIZEL <+> 7 Communication By <+> 7 Date and Time <+> 7 Communication To <+> 7 Comment 11/16/18 11:31:42 Stack Attendant: ALTIZEL Modifier: ALTIZEL <+> 6 Communication By <+> 6 Date and Time <+> 6 Communication To 11/16/18 10:22:56 Stack Attendant: ALTIZEL Modifier: ALTIZEL <+> 5 Communication By <+> 5 Date and Time <+> 5 Communication To 11/16/18 09:10:41 Stack Attendant: ALTIZEL Modifier: ALTIZEL <+> 3 Communication By <+> 3 Date and Time <+> 3 Communication To <+> 4 Communication By <+> 4 Date and Time <+> 4 Communication To <+> 4 Comment [facility] IntraOp Counts Verification Entry 1 Entry [...] LISA E, RN 11/16/18 07:20:29 11/16/18 11:54:29 [facility] IntraOp Counts Verification Audit 11/16/18 11:54:29 Stack Attendant: ALTIZEL Modifier: ALTIZEL <+> 2 Procedure <+> 2 Count Type <+> 2 Counts Verification Sequence <+> 2 Count Results <+> 2 Count Performed By (Scrub) <+> 2 Count Performed By (RN) 11/16/18 09:58:33 Stack Attendant: ALTIZEL Modifier: ALTIZEL 1 <*> Procedure Aortic Aneurysm Ascending Repair, CABG w Aortic Valve [facility] IntraOp Counts Final Entry 1 Procedure Aortic Aneurysm Ascending Repair, CABG w Aortic Valve, Transesophageal Echocardiogram Final Count Info Count Type Sponge, Sharps, Instrument, Miscellaneous Counts Verification Skin Closure/end of Sequence procedure Count Results Correct, surgeon notified Counts Performed By Count Performed By MELODY MASON (Scrub) Count Performed By RADHA VALENCIA RN (RN) Last Modified By: RADHA VALENCIA RN 11/16/18 12:01:46 [facility] IntraOp Cultures and Spec Summary Entry 1 Cultrures and Specimens Specimen Ordered: Yes Specimens Types Pathology Specimen(s) Labeled Pathology and Sent to Last Modified By: RADHA VALENCIA RN 11/16/18 09:22:38 [facility] IntraOp Departure from OR Entry 1 Integumentary Assessment Integumentary WDL Assessment WDL Transfer/Handoff Transfer to ICU - Cardiovascular Post-op Transport Bed (including Via specialty) Patient Transport SHERRY NICHOLS, Accompanied by Tye KHAN Tom, acetylene cylinder packing mixer Last Modified By: RADHA VALENCIA RN 11/16/18 08:42:33 [facility] IntraOp Drains and Tubes Entry 1 [...] LISA E, RN 11/16/18 08:42:54 11/16/18 08:42:54 [facility] IntraOp Dressing and Packing Entry 1 Entry 2 Type Dressing Dressing Location Mediastinum Mediastinum Wound Dressing Item 4x4's, Skin Closure Glue 4x4's Wound Packing Type Tape Type Supplemental Applications Applied By Other Comments Soft cloth paper tape Soft cloth paper tape Last Modified By: RADHA VALENCIA RN ALTIZER, LISA E, RN 11/16/18 08:43:06 11/16/18 08:53:50 [facility] IntraOp Dressing and Packing Audit 11/16/18 08:53:50 Stack Attendant: SAIGEIZEL Modifier: ALTIZEL <+> 2 Type <+> 2 Location <+> 2 Wound Dressing Item <+> 2 Other Comments [facility] IntraOp Fire Risk Assessment Entry 1 [...] Modified By: RADHA VALENCIA RN 11/16/18 07:20:01 [facility] IntraOp Fire Risk Assessment Audit 11/16/18 08:43:21 Stack Attendant: SAIGEIZEL Modifier: ALTIZEL 1 <*> Fire Risk Assessment Verified 11/16/18 07:19:00 Date/Time [facility] IntraOp General Case Button Maker And Installer 1 Case Information OR OR 14 [facility] Case Level 2 Room Verified Yes Wound Class I - Clean Specialty SN Cardio Thoracic Anesthesia Type General ASA Class 4 Diagnosis Preop Diagnosis CAD, AORTIC VALVE DISEASE, ASCENDING AORTIC ANEURSYM Postop Diagnosis SEE MD POST OP NOTE Last Modified By: RADHA VALENCIA RN 11/16/18 08:50:46 [facility] IntraOp Implant Log Entry 1 Entry 2 Type Implant (Synthetic) Tissue Implant (Biologic) Implant Log Implant Type Grafts, non-biological Tissue Implant Type Heart valve Implant [facility]N PLAT VALVE AORT ROOT Identification [id number] [id number] Description Implant Quantity 1 1 Implant Site AORTA AORTA Implant Identification Model Number Implant [id number] Identification Serial Number Implant Identification Lot Number Implant Michel Ind:Maquet:Cv Medtronic:Card Surg:Tech Identification Corporate Risk Analyst Name: Implant [id number] Identification Catalog Number Implant Size Implant Has an Yes Yes Expiration Date Implant Expiration 08/23/23 05/20/22 Date Wasted Radioactive Material Time Implanted Tissue Implant Continue for Tissue Implant Documentation Tissue Identification Number Graft Prep Per Yes Corporate Risk Analyst Instructions: Tissue Preparation N/A Method: Reconstitution Solution: Reconstitution Solution Lot Number Reconstitution Solution Expiration Date: Thawing Solution Thawing Solution Lot Number Thawing Solution Expiration Date Preparation NACL Materials, Other Preparation [id number] Materials, Other Lot Number Preparation 06/22/22 Materials, Other Expiration Date Tissue MARLON, MELODY Prepared/Processed By Corporate Risk Analyst Yes Paperwork Completed Implant Type Comment Last Modified By: RADHA VALENCIA RN ALTIZER, LISA E, RN 11/16/18 09:42:38 11/16/18 09:42:38 [facility] IntraOp Intraoperative Assessment Entry 1 Handoff [...] Modified By: RADHA VALENCIA RN 11/16/18 08:25:54 [facility] IntraOp Intraoperative Equipment Entry 1 Equipment Intraop Monitoring Blood Pressure Non-Invasive BP Device Source Blood Pressure Arm, right upper Location Pulse Oximeter Hand, left Probe Site Antiembolic Devices Scopes Photo/Video Documentation Last Modified By: RADHA VALENCIA RN 11/16/18 08:51:22 [facility] IntraOp Medication Admin Entry 1 Entry 2 Entry 3 Medication/Irrigant papverine HCL 30mg/ml lidocaine 1% 50ml vial NS 0.9% 50ml injection 10ml - [id number] - [id number] - [id number] Combo Med List Time Administered Route of FLUSH MAMMARY LOCAL FLUSH Administration Dose Dose 150 8 30 Unit of Measure mg ml ml Volume Administered By JULIO CESAR CARVALHO MD-[facility] ERASMO LÓPEZ PA MEECE, PAUL, PA Procedure Irrigation Irrigant Volume In Irrigant Volume Out Last Modified By: RADHA VALENCIA RN ALTIZER, LISA E, RN ALTIZER, LISA E, RN 11/16/18 08:52:11 11/16/18 11:07:14 11/16/18 08:52:11 Entry 4 Entry 5 Medication/Irrigant Ancef 1Gm advantage KT TISSEEL VH SD vial - [id number] Combo Med List Time Administered Route of IRRIGATION TOPICAL Administration Dose Dose 1 10 Unit of Measure gram ml Volume Administered By JULIO CESAR CARVALHO MD-CAT JULIO CESAR CARVALHO MD-CAT Procedure Irrigation Irrigant Volume In Irrigant Volume Out Last Modified By: RADHA VALENCIA RN ALTIZER, LISA E, RN 11/16/18 08:52:11 11/16/18 09:49:07 [facility] IntraOp Medication Admin Audit 11/16/18 11:07:14 Stack Attendant: ALTIZEL Modifier: ALTIZEL 2 <*> Medication/Irrigant lidocaine 1% 50ml vial - [id number] <*> Administered By ALLA SORIANO RN 11/16/18 09:49:07 Stack Attendant: ALTIZEL Modifier: ALTIZEL <+> 5 Medication/Irrigant <+> 5 Route of Administration <+> 5 Administered By <+> 5 Dose <+> 5 Unit of Measure [facility] IntraOp Patient Positioning Entry 1 Procedure [...] Modified By: RADHA VALENCIA RN 11/16/18 08:49:03 [facility] IntraOp Patient Positioning Audit 11/16/18 09:58:34 Stack Attendant: ALTIZEL Modifier: ALTIZEL 1 <*> Procedure Aortic Aneurysm Ascending Repair, CABG w Aortic Valve [facility] IntraOp Sign In Entry 1 Patient, [...] Modified By: RADHA VALENCIA RN 11/16/18 07:19:47 [facility] IntraOp Sign Out Entry 1 RN [...] Modified By: RADHA VALENCIA RN 11/16/18 12:41:17 [facility] IntraOp Skin Prep Entry 1 Procedure Transesophageal Echocardiogram Prescribed Yes Pre-Surgical Prep Completed Prep Area Chin to TOES Intraop Prep Integumentary WDL Assessment WDL Patients Normal WDL Integumentary Variance(s) Prep Agents Chloraprep Prep by RADHA VALENCIA RN Skin Prep Comment Xander Soriano also prepped Hair Removal Last Modified By: RADHA VALENCIA RN 11/16/18 08:52:45 [facility] IntraOp Skin Prep Audit 11/16/18 09:58:34 Stack Attendant: ALTIZEL Modifier: ALTIZEL <+> 1 Procedure [facility] IntraOp Surgical Procedures Entry 1 Entry [...] RN 11/16/18 09:57:36 11/16/18 08:49:06 11/16/18 09:58:24 [facility] IntraOp Surgical Procedures Audit 11/16/18 12:41:26 Stack Attendant: ALTIZEL Modifier: ALTIZEL <+> 1 Stop <+> 2 Stop <+> 3 Stop 11/16/18 10:51:43 Stack Attendant: ALTIZEL Modifier: ALTIZEL 1 <*> Procedure Aortic Aneurysm Ascending Repair 11/16/18 10:17:14 Stack Attendant: ALTIZEL Modifier: ALTIZEL <+> 3 Start 11/16/18 09:58:24 Stack Attendant: ALTIZEL Modifier: ALTIZEL <+> 3 Procedure <+> 3 Primary Procedure <+> 3 Primary Surgeon <+> 3 Specialty <+> 3 Wound Class <+> 3 Anesthesia Type 11/16/18 09:57:36 Stack Attendant: ALTIZEL Modifier: ALTIZEL 1 <*> Procedure Aortic Aneurysm Ascending Repair 1 <*> Additional Procedure Description (ASCENDING AORTIC ANEURYSM REPAIR, CABG, POSSIBLE AORTIC VALVE REPLACEMENT) [facility] IntraOp Temp Regulation Devices Entry 1 Entry 2 Temp Regulation Temperature Forced Air Warming Warm blankets Regulation Device device Temperature [id number] Regulation Device Serial/Unit Number Temperature Lower body Full body Regulation Site Temperature Device 43 DEG C Setting Temperature RADHA VALENCIA RN ALTIZER, LISA E, RN Regulation Device Applied by Temperature CATIA HUGGER TURNED ON Regulation Comment AFTER AORTIC CROSS CLAMP REMOVED Last Modified By: RADHA VALENCIA RN ALTIZER, LISA E, RN 11/16/18 08:53:25 11/16/18 08:53:25 [facility] IntraOP Time Out Entry 1 Procedure [...] Modified By: RADHA VALENCIA RN 11/16/18 09:58:34 [facility] IntraOP Time Out Audit 11/16/18 09:58:34 Stack Attendant: EARNESTINE Modifier: ALTIZEL 1 <*> Procedure to be Performed Aortic Aneurysm Ascending Repair, CABG w Aortic Valve Case Comments <None> Finalized By: JODI PITT Document Signatures Signed By: RADHA VALENCIA RN 11/16/18 12:41 JODI PITT 11/17/18 10:03 Unfinalized History Date/Time Username Reason for Unfinalizing Freetext Reason for Unfinalizing 11/17/18 09:59 [email or web address] Correct Billing Electronically signed by Parveen [facility] Conversion Mobile Game Engineer Cerner at 12/08/2022 12:09 PM CDT documented in this encounter Plan of Treatment Not on file documented as of this encounter Visit Diagnoses Not on filedocumented in this encounter
--- OUTSIDE RECORDS SUMMARY | 2025-04-28 11:13 | XMS_ITS | Encounter Summary ---
Author Organization [employer] ([place], [place], [place], [place]) Address [address] [place] [address] Care Team Providers Care Coating Mixer Supervisor Name Role Phone Unavailable Primary Care Provider Unavailabl e Encounter Details Date Type Department Care Team (Late st Contact Info) Description 12/01/2018 Transcribed Document [facility] [place] [address] [place] [address] ProviderErika MD [address] [place] [address] Social History Tobacco Use Types Packs/Day Years Used Date Smoking Tobacco: Never Assessed Sex and Gender Information Value Date Recorded Sex Assigned at Not on file Legal Sex Male 5:03 PM CDT Gender Identity Not on file Sexual Orientation Not on file documented as of this encounter Miscellaneous Notes * Cerner Conversion Note - Historical ProviderMD - 12/01/2018 2:00 AM CDT Sales Representative Wire Rope Details Entered On: 12/01/2018 0:23 EDT Performed [...] Dixie Fox, RN - 12/01/2018 0:22 EDT Electronically signed by Christina Saini Conversion Natural Resources Specialist Cerner at 12/08/2022 12:32 PM CDT documented in this encounter Plan of Treatment Not on file documented as of this encounter Visit Diagnoses Not on filedocumented in this encounter
--- OUTSIDE RECORDS SUMMARY | 2025-04-28 11:13 | XMS_ITS | Encounter Summary ---
Author Organization [employer] ([place], [place], [place], [place]) Address [address] [place] [address] Care Team Providers Care Outdoor Education Teacher Name Role Phone Unavailable Primary Care Provider Unavailabl e Encounter Details Date Type Department Care Team (Late st Contact Info) Description 11/16/2018 Transcribed Document [facility] [place] [address] [place] [address] ProviderErika MD [address] [place] [address] Social History Tobacco Use [...] Erika ProviderMD - 11/16/2018 7:[address] [facility] Main OR Preop Summary Primary Physician: JULIO CESAR CARVALHO MD-CAT Finalized Date/Time: 11/16/18 07:12:04 Pt. Name: DOTTIE VILLASENOR D.O.B./Sex: 1940 Male Med Rec #: [id number] Physician: JULIO CESAR CARVALHO MD-CAT Financial #: [id number] Pt. Type: I Room/Bed: ASA/8 Admit/Disch: 11/16/18 06:45:00 - Institution: [facility] PreOp Case Times Entry 1 In Preop [...]
--- OUTSIDE RECORDS SUMMARY | 2025-04-28 11:13 | XMS_ITS | Encounter Summary ---
Author Organization [employer] ([place], [place], [place], [place]) Address [address] [place] [address] Care Team Providers Care Automatic Bow Maker Machine Tender Name Role Phone Unavailable Primary Care Provider Unavailabl e Encounter Details Date Type Department Care Team (Late st Contact Info) Description 11/20/2018 Transcribed Document [facility] [place] [address] [place] [address] ProviderErika MD [address] [id number] Social History Tobacco Use Types [...] Bedtime, Routine HEENT saliva substitutes - 1 [place], Buccal, Liquid, Q2H, PRN for Other (See [...] Radiology results Radiology Results (Last 48 hours) [id number] -- 11/16/2018 06:45 CR Chest 1 Vw [...] Shortness of breathCOMPARISON: 1 day priorFINDINGS: A Buchanan-Jovanna catheter tip terminates in the SVC. The Buchanan-Ganzcatheter has been retracted. The cardiac silhouette is [...]
--- OUTSIDE RECORDS SUMMARY | 2025-04-28 11:13 | XMS_ITS | Encounter Summary ---
Author Organization [employer] ([place], [place], [place], [place]) Address [address] [place] [address] Care Team Providers Care Child Caregiver Private Home Name Role Phone Unavailable Primary Care Provider Unavailabl e Encounter Details Date Type Department Care Team (Late st Contact Info) Description 12/01/2018 Transcribed Document [facility] [place] [address] [place] [address] ProviderErika MD [address] [place] [address] Social History Tobacco Use [...]
--- OUTSIDE RECORDS SUMMARY | 2025-04-28 11:13 | XMS_ITS | Encounter Summary ---
Author Organization [employer] ([place], [place], [place], [place]) Address [address] [place] [address] Care Team Providers Care Beam House Inspector Name Role Phone Unavailable Primary Care Provider Unavailabl e Encounter Details Date Type Department Care Team (Late st Contact Info) Description 11/16/2018 Transcribed Document [facility] [place] [address] [place] [address] ProviderErika MD [address] [place] [address] Social History Tobacco Use Types [...] Ambulatory Legal Guardian : Spouse Support Person/Patient Animal Care Giver : Yes Support Person/Pt Rep Name : Connie- Sumeet - son Support Person/Pt Rep Contact Information : [phone] home [phone] - cell Want Family/Rep/Phys Notified of Admit [...] : Patient, Medical Record Primary Language : Zimbabwean Preferred Communication Mode : Verbal Communication Barrier [...] Scale Risk Level : 25-45 Medium Risk [place] Fall Interventions : Adequate lighting, Assistive devices [...] Source : Measured Height Entry Format : Pitman Height, Feet : 6 ft(Converted to: 183 cm, 72 Inch) Height, Inches : 1 Inch(Converted to: 0 ft 1 Inch, 2.54 cm) Clinical Height : 185.42 cm Weight Source : Standing scale Weight Entry Format : Pitman Clinical Dosing Weight : 79.23 kg Weight, Pounds : 174 lb Weight, Ounces : 5 oz Body Surface Area (BSA) : 2.03 m2 Body Mass Index : 23 kg/m2 [place] Body Weight : 79 kg FROY NEIL [...]
--- OUTSIDE RECORDS SUMMARY | 2025-04-28 11:13 | XMS_ITS | Encounter Summary ---
Author Organization [employer] ([place], [place], [place], [place]) Address [address] [place] [address] Care Team Providers Care Rotating Field Assembler Name Role Phone Unavailable Primary Care Provider Unavailabl e Encounter Details Date Type Department Care Team (Late st Contact Info) Description 11/26/2018 Transcribed Document [facility] [place] Family Medicine [address] [place] [address] ProviderErika MD [address] [place] [address] Social History Tobacco Use Types [...]
--- OUTSIDE RECORDS SUMMARY | 2025-04-28 11:13 | XMS_ITS | Encounter Summary ---
Author Organization [employer] ([place], [place], [place], [place]) Address [address] [place] [address] Care Team Providers Care Risk Assessor Name Role Phone Unavailable Primary Care Provider Unavailabl e Encounter Details Date Type Department Care Team (Late st Contact Info) Description 11/23/2018 Transcribed Document [facility] [place] [address] [place] [address] ProviderErika MD [address] [place], [...] Historical ProviderMD - 11/23/2018 1:36 PM CDT Manager Fraud Details Entered On: 11/23/2018 16:44 EDT Performed [...]
--- OUTSIDE RECORDS SUMMARY | 2025-04-28 11:13 | XMS_ITS | Referral Summary ---
Author Organization [employer] ([place], [place]) Address [address] [place] [address] Care Team Providers Care Systems Support Engineer Name Role Phone Unavailable Primary Care [...]
--- OUTSIDE RECORDS SUMMARY | 2025-04-28 11:13 | XMS_ITS | Encounter Summary ---
Author Organization [facility] ([place], [place], [place], [place]) Address [address] [place] [address] Care Team Providers Care Lead Auditor Name Role Phone Unavailable Primary Care Provider Unavailabl e Encounter Details Date Type Department Care Team (Late st Contact Info) Description 11/28/2018 Transcribed Document [facility] [place] [address] [place] [address] ProviderErika MD [address] [place], [place] [id number] Social History Tobacco Use Types Packs/Day Years [...] 1940 Associated Diagnoses: CAD (coronary artery disease), [place] coronary artery; Thrombocytopenia; Coronary artery disease; HTN [...] mg, Oral, At Bedtime saliva substitutes: 1 [place], Buccal, Q2H, PRN: Other (See Comment) warfarin: [...] Q1H saliva substitute liq 59 mL 1 [place], Buccal, Q2H Problem list: Medical Aneurysm, thoracic aortic / SNOMED CT 7079417698 / Confirmed Aortic valve insufficiency / SNOMED CT 485807992 / Confirmed Arthritis / SNOMED CT 9874247 / Confirmed At risk for sleep apnea / IMO 94527254 / Confirmed CAD (coronary artery disease) / SNOMED CT 25435581 / Confirmed HTN - Hypertension / SNOMED CT 9606062214 / Confirmed Hypothyroidism / SNOMED CT 54530588 / Confirmed Frequent urination / SNOMED CT 705283710 / Confirmed Nocturia / SNOMED CT 880140574 / Confirmed Prostate stricture / SNOMED CT 00911916 / Confirmed, Active Problems (13) Aneurysm, thoracic [...] swelling - improved today. Integumentary: Warm, Dry, Gas, incision is C/D/I. Neurologic: Alert, Oriented, left [...] of discharge- CM has sent information to [facility] -Transfer to [facility] 11/24/18 -POD#8 -Awaiting transfer to [facility] -Awaiting response from [facility] 11/25/18 -left upper extremity venous doppler - doppler this am positive for LUE DVT - will start coumadin and heparin bridge -awaiting [facility] 11/26/18 -Heparin drip and coumadin for LUE DVT Left arm swelling improved today INR 1.1 today, INR goal 2-3 Possibly transfer to [facility] this weekend 11/27/18: Left arm swelling continues to improve Continues on Coumadin and heparin bridge INR: 1.4 (1.1 yesterday) goal: 2 to 3 [facility] soon,? Tomorrow 11/28/18 BP in 70s-80s this [...] Prophylaxis: SCDs Diagnosis CAD (coronary artery disease), [place] coronary artery - Admitting, Medical. Thrombocytopenia - [...] Medical. Electronically signed by Christina Saini Conversion Picker And Sorter Load And Unload Cerner at 12/08/2022 12:16 PM CDT documented in this encounter Plan of Treatment Not on file documented as of this encounter Visit Diagnoses Not on filedocumented in this encounter
--- OUTSIDE RECORDS SUMMARY | 2025-04-28 11:13 | XMS_ITS | Encounter Summary ---
Author Organization [employer] ([place], [place], [place], [place]) Address [address] [place] [address] Care Team Providers Care Career Manager Name Role Phone Unavailable Primary Care Provider Unavailabl e Encounter Details Date Type Department Care Team (Late st Contact Info) Description 11/24/2018 Transcribed Document [facility] [place] [address] [place] [address] ProviderErika MD [address] [place] [address] Social History Tobacco Use Types [...] ProviderMD - 11/24/2018 2:00 AM CDT Marine Animal Trainer Details Entered On: 11/24/2018 3:36 EDT Performed [...]
--- OUTSIDE RECORDS SUMMARY | 2025-04-28 11:13 | XMS_ITS | Encounter Summary ---
Author Organization [email or web address] ([place], [place], [place], [place]) Address [address] [place] [address] Care Team Providers Care Extras Casting Director Name Role Phone Unavailable Primary Care Provider Unavailabl e Encounter Details Date Type Department Care Team (Late st Contact Info) Description 11/16/2018 Transcribed Document [facility] [place] [address] [place] [address] ProviderErika MD [address] [place] [address] Social History Tobacco Use Types [...] : 11/17/2018 00:00 Atherosclerotic heart disease of [place] coronary artery without angina pectoris 11/17/2018 00:00 Essential (primary) hypertension 11/17/2018 00:00 Hypothyroidism, unspecified 11/17/2018 00:00 Nonrheumatic aortic (valve) insufficiency 11/17/2018 00:00 Restless legs syndrome 11/17/2018 00:00 Thoracic aortic aneurysm, without rupture 11/17/2018 00:00 Thrombocytopenia, unspecified 11/16/2018 00:00 Atherosclerotic heart disease of [place] coronary artery without angina pectoris 11/16/2018 00:00 [...] ROGER LEWIS, PT - 11/18/2018 16:07 EDT [place] PT Charges PT Eval Moderate Complexity : 1 ROGER LEWIS, PT - 11/18/2018 16:07 EDT documented in this encounter Plan of Treatment Not on file documented as of this encounter Visit Diagnoses Not on filedocumented in this encounter
--- OUTSIDE RECORDS SUMMARY | 2025-04-28 11:13 | XMS_ITS | Encounter Summary ---
Author Organization [employer] ([place], [place], [place], [place]) Address [address] [place] [address] Care Team Providers Care Scout Executive Name Role Phone Unavailable Primary Care Provider Unavailabl e Encounter Details Date Type Department Care Team (Late st Contact Info) Description 11/05/2018 Transcribed Document [facility] [place] [address] [place] [address] ProviderErika MD [address] [place] [address] Social History Tobacco Use Types [...] Source : Stated Height Entry Format : Dickenson Height, Feet : 6 ft(Converted to: 183 cm, 72 Inch) Height, Inches : 1 Inch(Converted to: 0 ft 1 Inch, 2.54 cm) Clinical Height : 185.42 cm Weight Source : Standing scale Weight Entry Format : Dickenson Clinical Dosing Weight : 77.27 kg Weight, Pounds : 170 lb Body Surface Area (BSA) : 2.01 m2 Body Mass Index : 22.5 kg/m2 [place] Body Weight : 79 kg SRIRAM PATEL [...] Any Spiritual/Cultural Needs or Requests : No Gnosticist Preference : Caodaism SRIRAM PATEL RN - 11/05/2018 8:49 EDT [...] Obtained From : Patient Primary Language : Luxembourger Preferred Communication Mode : Verbal Communication Barrier [...] % Oxygen Therapy Mode : Room air SRRIAM PATEL RN - 11/05/2018 8:49 EDT Sleep [...] Scale Risk Level : 0-24 Low Risk [place] Fall Interventions : Adequate lighting, Bed in [...] rendition version of the form. Kavin Coma [place] Best Motor Response : Obey commands Kavin Best Verbal Response : Oriented [place] Eye Opening Response : Spontaneous Kavin Coma Score : 15 SRIRAM PATEL RN - 11/05/2018 8:49 EDT documented in this encounter Plan of Treatment Not on file documented as of this encounter Visit Diagnoses Not on filedocumented in this encounter
--- OUTSIDE RECORDS SUMMARY | 2025-04-28 11:13 | XMS_ITS | Encounter Summary ---
Author Organization [employer] ([place], [place], [place], [place]) Address [address] [place] [address] Care Team Providers Care Direct Care Staffer Name Role Phone Unavailable Primary Care Provider Unavailabl e Encounter Details Date Type Department Care Team (Late st Contact Info) Description 11/23/2018 Transcribed Document [facility] [place] [address] [place] [address] ProviderErika MD [address] [place] [address] Social History Tobacco Use Types [...] Ana Munoz RN - 11/23/2018 16:45 EDT documented in this encounter Plan of Treatment Not on file documented as of this encounter Visit Diagnoses Not on filedocumented in this encounter
--- OUTSIDE RECORDS SUMMARY | 2025-04-28 11:13 | XMS_ITS | Encounter Summary ---
Author Organization [employer] ([place], [place], [place], [place]) Address [address] [place] [address] Care Team Providers Care Atomic Physics Teacher Name Role Phone Unavailable Primary Care Provider Unavailabl e Encounter Details Date Type Department Care Team (Late st Contact Info) Description 11/16/2018 Transcribed Document [facility] [place] [address] [place] [address] ProviderErika MD [address] [place] [address] Social History Tobacco Use [...]
--- OUTSIDE RECORDS SUMMARY | 2025-04-28 11:13 | XMS_ITS | Encounter Summary ---
Author Organization [employer] ([place], [place], [place], [place]) Address [address] [place] [address] Care Team Providers Care Ctrs Name Role Phone Unavailable Primary Care Provider Unavailabl e Encounter Details Date Type Department Care Team (Late st Contact Info) Description 11/24/2018 Transcribed Document [facility] [place] [address] [place] [address] ProviderErika MD [address] [place] [address] Social History Tobacco Use Types [...]
--- OUTSIDE RECORDS SUMMARY | 2025-04-28 11:13 | XMS_ITS | Encounter Summary ---
Author Organization [employer] ([place], [place], [place], [place]) Address [address] [place] [address] Care Team Providers Care Photo Lab Manager Name Role Phone Unavailable Primary Care Provider Unavailabl e Encounter Details Date Type Department Care Team (Late st Contact Info) Description 11/16/2018 Transcribed Document [facility] [place] [address] [place] [address] ProviderErika MD [address] [place] [address] Social History Tobacco Use Types [...] anterior descending). SURGEON: Porfirio Gaxiola IV, MD PUBLIC SAFETY TELECOMMUNICATOR: Saud Oliver (AMANDA) ANESTHESIA: General orotracheal. CLINICAL [...] Gaxiola IV, M.D. Electronically signed by Parveen [facility] Conversion Principal Law Clerk Cerner at 12/08/2022 12:25 PM CDT documented in this encounter Plan of Treatment Not on file documented as of this encounter Visit Diagnoses Not on filedocumented in this encounter
--- OUTSIDE RECORDS SUMMARY | 2025-04-28 11:13 | XMS_ITS | Encounter Summary ---
Author Organization [employer] ([place], [place], [place], [place]) Address [address] [place] [address] Care Team Providers Care Pillowcase Sewer Name Role Phone Unavailable Primary Care Provider Unavailabl e Encounter Details Date Type Department Care Team (Late st Contact Info) Description 11/16/2018 Transcribed Document [facility] [place] Family Medicine [address] [place] [address] ProviderErika MD [address] [place] [address] Social History Tobacco Use Types [...] PROCEDURE: 1. Left radial arterial line. 2. [place]-Jovanna catheter. SURGEON: Porfirio Gaxiola IV, MD Procedure [...] introducer was applied over guidewire, then a [place]-Jovanna catheter was advanced down MAC introducer to pulmonary artery, pulmonary artery wedge position. The patient tolerated both procedures well without any blood loss. Dictated By: Saud Oliver PA-C For Porfirio Gaxiola IV, M.D. Richard Floyd, IV, M.D. Dict: 11/16/2018 08:44:48 Trans: 11/16/2018 12:16:26 CC1: Porfirio Gaxiola IV, M.D. Electronically signed by Christina Saini Conversion Director Of Sales Marketing Cerner at 12/08/2022 12:37 PM CDT documented in this encounter Plan of Treatment Not on file documented as of this encounter Visit Diagnoses Not on filedocumented in this encounter
--- OUTSIDE RECORDS SUMMARY | 2025-04-28 11:13 | XMS_ITS | Encounter Summary ---
Author Organization [employer] ([place], [place], [place], [place]) Address [address] [place] [address] Care Team Providers Care Medical Device Name Role Phone Unavailable Primary Care Provider Unavailabl e Encounter Details Date Type Department Care Team (Late st Contact Info) Description 11/16/2018 Transcribed Document [facility] [place] [address] [place] [address] ProviderErika MD [address], [place] [id number] Social History Tobacco Use Types Packs/Day Years [...] Medical. Performed by: JULIO CESAR CARVALHO MD-CAT. Prepleater: ERASMO LÓPEZ PA. Notes: Procedure: Resection and [...]
--- OUTSIDE RECORDS SUMMARY | 2025-04-28 11:13 | XMS_ITS | Encounter Summary ---
Author Organization [employer] ([place], [place], [place], [place]) Address [address] [place] [address] Care Team Providers Care Cut Out Machine Operator Name Role Phone Unavailable Primary Care Provider Unavailabl e Encounter Details Date Type Department Care Team (Late st Contact Info) Description 11/16/2018 Transcribed Document [facility] [place] [address] [place] [address] ProviderErika MD [address] [place], [...] On: 11/16/2018 12:27 EDT by [facility] Pratt [facility] Phone Call for Consults Consult Phone Call/Page Attempt : First call [facility] - 11/16/2018 13:34 EDT documented in this encounter Plan of Treatment Not on file documented as of this encounter Visit Diagnoses Not on filedocumented in this encounter
--- OUTSIDE RECORDS SUMMARY | 2025-04-28 11:13 | XMS_ITS | Encounter Summary ---
Author Organization [employer] ([place], [place], [place], [place]) Address [address] [place] [address] Care Team Providers Care Household Refrigerator Mechanic Name Role Phone Unavailable Primary Care Provider Unavailabl e Encounter Details Date Type Department Care Team (Late st Contact Info) Description 11/28/2018 Transcribed Document [facility] [place] [address] [place] [address] ProviderErika MD [address] [place], [place] [id number] Social History Tobacco Use Types Packs/Day Years [...] Spiritual Care Reason for Visit : Other: INSTRUCTION ASSISTANT PRINCIPAL Intervention/Comment/Summary Points : Pt fell back to sleep after RNs finished assessing pt. No needs at this time. Sikhism Preference : Voodoo MALU SHEPARD Chaplain-Non Cert - 11/28/2018 5:34 EDT documented in this encounter Plan of Treatment Not on file documented as of this encounter Visit Diagnoses Not on filedocumented in this encounter
--- OUTSIDE RECORDS SUMMARY | 2025-04-28 11:13 | XMS_ITS | Encounter Summary ---
Author Organization [employer] ([place], [place], [place], [place]) Address [address] [place] [address] Care Team Providers Care Seo Executive Name Role Phone Unavailable Primary Care Provider Unavailabl e Encounter Details Date Type Department Care Team (Late st Contact Info) Description 11/05/2018 Transcribed Document [facility] [place] Family Medicine [address] [place] [address] ProviderErika MD [address] [place] [address] Social History Tobacco Use Types [...]
--- OUTSIDE RECORDS SUMMARY | 2025-04-28 11:13 | XMS_ITS | Encounter Summary ---
Author Organization [employer] ([place], [place], [place], [place]) Address [address] [place] [address] Care Team Providers Care Newspaper Clipper Name Role Phone Unavailable Primary Care Provider Unavailabl e Encounter Details Date Type Department Care Team (Late st Contact Info) Description 11/30/2018 Transcribed Document [facility] [place] [address] [place] [address] ProviderErika MD [address] [place] [address] Social History Tobacco Use Types [...] ProviderMD - 11/30/2018 2:00 AM CDT Teacher Of The Visually Impaired Details Entered On: 11/30/2018 0:59 EDT Performed [...] Dixie Fox, RN - 11/30/2018 0:59 EDT Electronically signed by Christina Saini Conversion Carpet Yarn Winder Operator Cerner at 12/08/2022 12:34 PM CDT documented in this encounter Plan of Treatment Not on file documented as of this encounter Visit Diagnoses Not on filedocumented in this encounter
--- OUTSIDE RECORDS SUMMARY | 2025-04-28 11:13 | XMS_ITS | Encounter Summary ---
Author Organization [employer] ([place], [place], [place], [place]) Address [address] [place] [address] Care Team Providers Care Lead Nuclear Medicine Technologist Name Role Phone Unavailable Primary Care Provider Unavailabl e Encounter Details Date Type Department Care Team (Late st Contact Info) Description 11/28/2018 Transcribed Document [facility] [place] [address] [place] [address] ProviderErika MD [address] [place] [address] Social History Tobacco Use Types [...]
--- OUTSIDE RECORDS SUMMARY | 2025-04-28 11:13 | XMS_ITS | Encounter Summary ---
Author Organization [employer] ([place], [place], [place], [place]) Address [address] [place] [address] Care Team Providers Care Poultry Boner Name Role Phone Unavailable Primary Care Provider Unavailabl e Encounter Details Date Type Department Care Team (Late st Contact Info) Description 11/28/2018 Transcribed Document [facility] [place] [address] [place] [address] ProviderErika MD [address] [place] [address] Social History Tobacco Use Types [...] EDT Electronically signed by Christina Saini Conversion Title One Kindergarten Teacher Felipe at 12/08/2022 12:19 PM CDT documented in this encounter Plan of Treatment Not on file documented as of this encounter Visit Diagnoses Not on filedocumented in this encounter
--- OUTSIDE RECORDS SUMMARY | 2025-04-28 11:13 | XMS_ITS | Encounter Summary ---
Author Organization [employer] ([place], [place], [place], [place]) Address [address] [place] [address] Care Team Providers Care Glass Selector Name Role Phone Unavailable Primary Care Provider Unavailabl e Encounter Details Date Type Department Care Team (Late st Contact Info) Description 12/01/2018 Transcribed Document [facility] [place] [address] [place] [address] ProviderErika MD [address] [place] [address] Social History Tobacco Use Types [...] and arrangements, chart reviewed, received word from [facility] that bed is available for patient today, on their stroke unit. Patient to be transported via [facility], p/u set for 3pm. RN report to be called to [phone] and discharge summary to be faxed to [phone]. Pt, RN and family aware and in agreement with plan. ANGELA NAIR Social Worker - 12/01/2018 11:35 EDT Care Management Note Report : SUZANNA HAINES Social Worker - 11/30/18 15:30:18 Covering today for D/c planning, pt back on 3E room 330. Discussed w/ Carmen from [facility] who is still following pt. She has submitted pt info to MD for approval. Pt had EGD 11/29 which revealed duodenal ulcer w/ clot but no bleeding, no intervention needed, Off heparin gtt, watching pt's INR and H & H. Speech signed off today, pt is cleared for thins. Met w/ pt and family and informed them of [facility] situation. Also discussed outpt Cardiac Rehab. [facility]. Phoned them and left msg, sent pt info to them. CM will cont to follow. ANGELA NAIR Chief Of Staff - 11/26/18 11:20:05 Continue to follow for discharge needs and arrangements, chart reviewed, admission day 10, transfer from [facility], on room air, WBC=11.2, INR=1.1, PTT=55.8, on IV Heparin gtt due to DVT in left arm, MBS completed today now on regular cardiac diet with thin liquids, PT/OT following (not seen on 11/25/18) followed up with [facility] today regarding possible admission - plan is to submit for approval today after being seen by therapy. Awaiting ANGELA NAIR Chief Of Staff - 11/26/18 11:24:04 Continue to follow for discharge needs and arrangements, chart reviewed, admission day 10, transfer from [facility], on room air, WBC=11.2, INR=1.1, PTT=55.8, on IV Heparin gtt due to DVT in left arm, MBS completed today now on regular cardiac diet with thin liquids, PT/OT following (not seen on 11/25/18) followed up with [facility] today regarding possible admission - plan is to submit for approval today after being seen by therapy, for their MD approval. Once accepting MD in place, bed in place and patient is medically stable will be able to transfer due to patient not requiring a insurance prior auth. CM will continue to follow. ODALYS FAULKNER, Rn-Cis Coordinator - 11/24/18 13:22:19 11/24/[address] [facility] called to let me know they started a precert on this pt. CF ODALYS FAULKNER Rn-Cis Coordinator - 11/22/18 13:56:32 11/22/18 Pt has had a cva. Spoke to his Connie and son Sumeet at the bedside. Pt is lfacid on the left side. Discussed the need for STR and they decided on [facility]. Sent pt info via [facility] to [facility]. CF Documentation Status Complete : Yes ANGELA NAIR Social Worker - 12/01/2018 11:24 EDT Discharge Planning Details Home Caregiver Name/Relationship : Connie King [phone] spouse Discharge Placement Needs : Rehabilitation unit/facility [...] Yes Patient/Family Notified : Connie King Spouse [phone] ANGELA NAIR Social Worker - 12/01/2018 11:35 EDT Final Discharge Disposition Note-CM Discharge To Care Management : IRF -Inpatient Rehabilitation Facility-62 Name of Receiving Facility/Provider-CM : [facility] Stroke unit ANGELA NAIR Social Worker - 12/01/2018 11:35 EDT Electronically signed by Christina Saini Conversion Dumper Central Concrete Mixing Plant Cerner at 12/08/2022 12:25 PM CDT documented in this encounter Plan of Treatment Not on file documented as of this encounter Visit Diagnoses Not on filedocumented in this encounter
--- OUTSIDE RECORDS SUMMARY | 2025-04-28 11:13 | XMS_ITS | Encounter Summary ---
Author Organization [employer] ([place], [place], [place], [place]) Address [address] [place] [address] Care Team Providers Care Satellite Dish Technician Name Role Phone Unavailable Primary Care Provider Unavailabl e Encounter Details Date Type Department Care Team (Late st Contact Info) Description 11/16/2018 Transcribed Document [facility] [address] [place] [address] Niles Nunez MD [address] [place], [place] [id number] Social History Tobacco Use Types Packs/Day Years [...]
--- OUTSIDE RECORDS SUMMARY | 2025-04-28 11:13 | XMS_ITS | Encounter Summary ---
Author Organization [employer] ([place], [place], [place], [place]) Address [address] [place] [address] Care Team Providers Care Early Interventionist Name Role Phone Unavailable Primary Care Provider Unavailabl e Encounter Details Date Type Department Care Team (Late st Contact Info) Description 11/23/2018 Transcribed Document [facility] [place] [address] [place] [address] ProviderErika MD [address] [place] [address] Social History Tobacco Use Types [...]
--- OUTSIDE RECORDS SUMMARY | 2025-04-28 11:13 | XMS_ITS | Encounter Summary ---
Author Organization [employer] ([place], [place], [place], [place]) Address [address] [place] [address] Care Team Providers Care Filler And Trimmer Name Role Phone Unavailable Primary Care Provider Unavailabl e Encounter Details Date Type Department Care Team (Late st Contact Info) Description 11/24/2018 Transcribed Document [facility] [place] [address] [place] [address] ProviderErika MD [address] [place] [address] Social History Tobacco Use Types [...] RASHIDA HAQ OTR/L - 11/24/2018 15:37 EDT Electronically signed by Christina Saini Conversion Rope Making Machine Operator Cerner at 12/08/2022 12:32 PM CDT documented in this encounter Plan of Treatment Not on file documented as of this encounter Visit Diagnoses Not on filedocumented in this encounter
--- OUTSIDE RECORDS SUMMARY | 2025-04-28 11:13 | XMS_ITS | Encounter Summary ---
Author Organization [employer] ([place], [place], [place], [place]) Address [address] [place] [address] Care Team Providers Care Set Illustrator Name Role Phone Unavailable Primary Care Provider Unavailabl e Encounter Details Date Type Department Care Team (Late st Contact Info) Description 11/20/2018 Transcribed Document [facility] Family Medicine [address] [place] [address] ProviderErika MD [address] [place] [...] Erika ProviderMD - 11/20/2018 9:36 AM CDT CAST [employer] DRAIN PIPE LAYER Note Entered On: 11/24/2018 13:28 EDT Performed On: 11/24/2018 13:19 EDT by MAMTA SOLO, [employer] PIPE L[employer]ER Dysphagia Exercise Technique Dysphagia Therapy/Treatment Type #1 [...] Technique PO Trial #1 Consistency Trialed : [place] Oral Symptoms : None observed Pharyngeal Signs [...] 13:19 EDT Swallow Plan/Goals Swallow LTG Grid [employer] LAYER Rug Layer Goal #1 CAST [employer]ON DRAIN PIPE LAYER Rug Layer Goal #2 Swallow LTG : Establish safe [...] Date Met : 11/22/2018 EDT MAMTA SOLO, [facility] - 11/24/2018 13:19 EDT MAMAT SOLO [employer] - 11/24/2018 13:19 EDT MAMTA SOLO [employer] - 11/24/2018 13:19 EDT MAMTA SOLO [facility] - 11/24/2018 13:19 EDT LTG Lang/Comm/Cog LTG CA[employer] Rug Layer Goal 1 Rug Layer Goal 2 Goals : Improved spoken language expression at the time of discharge Improved auditory/spoken language comprehension at the time of discharge Status : Initial Initial MAMTA SOLO [facility] - 11/24/2018 13:19 EDT MAMTA SOLO SLP - 11/24/2018 13:19 EDT STG Lang_Comm_Cog Motor Speech STG Grid Goal #1 Activity : Improve intelligibility of speech Status : Initial MAMTA SOLO [facility] - 11/24/2018 13:19 EDT Auditory Comprehension Grid Goal #1 Goal #2 Activity : Follow directions, 3 step commands simple Comprehend paragraph complex MAMTA SOLO [facility] - 11/24/2018 13:19 EDT MAMTA SOLO [facility] - 11/24/2018 13:19 EDT Verbal Expression STG Grid Goal #1 Activity : Generate items in a category MAMTA SOLO [facility] - 11/24/2018 13:19 EDT Reading Comprehension STG Grid Goal #1 Activity : Visual perception deficits MAMTA SOLO [facility] - 11/24/2018 13:19 EDT Attention STG Grid Goal #1 Activity : Other: Probe Status : Goal met Date Met : 11/24/2018 TGT MAMTA SOLO [facility] - 11/24/2018 13:19 EDT Memory STG Grid Goal #1 Goal #2 Goal #3 Activity : Other: Probe Improve short term functional delayed Improve short term working memory Status : Goal met Initial Initial Date Met : 11/24/2018 TGT MAMTA SOLO [facility] - 11/24/2018 13:19 EDT MAMTA SOLO [facility] - 11/24/2018 13:19 EDT MAMTA SOLO [facility] - 11/24/2018 13:19 EDT Problem [...] SOLO SLP - 11/24/2018 13:19 EDT Subjective/Assessment/Plan CA[employer] P[employer] LAYER Patient Concern : Pt was awake and lying in bed. Agreeable to tx. CA[employer] D[employer] PIPE LAYER Therapy/Treatment Asmt Cmnt : Pt seen for speech and dysphagia tx. Great participation in tx. Requires continuous cues for accurate completion of timing exercises. No overt pharyngeal patterns with nectar liquids. Further cogntive probe completed. Pt presents with a moderate cognitive deficits characterized by impairments in memory, orientation, and problem solving. POC updated. CA[employer] DRA[employer] PIPE LAYER Plan : Continue per POC. Repeat swallow study Thursday. MAMTA SOLO SLP - 11/24/2018 13:19 EDT Education Barriers To Learning : Cognitive deficit Individuals Taught : Patient Readiness to Learn : Cooperative Readiness to Learn : Explanation MAMTA SOLO SLP - 11/24/2018 13:19 EDT [employer]IPE [employer] Education Assessment Grid 1 Evaluation Results : Verbalizes understanding MAMTA SOLO SLP - 11/24/2018 13:19 EDT [employer] Education Assessment Grid 2 Treatment Plan : Verbalizes understanding MAMTA SOLO SLP - 11/24/2018 13:[address] [facility] [facility] [employer]ER Charges Speech Therapy : 1 Treatment-Swallowing : 1 MAMTA SOLO SLP - 11/24/2018 13:19 EDT Anticipated Discharge Needs, [employer]ER Anticipated Discharge to OT : Rehab, high intensity Recommend Continued Therapy at Discharge : Yes MAMTA SOLO SLP - 11/24/2018 13:19 EDT documented in this encounter Plan of Treatment Not on file documented as of this encounter Visit Diagnoses Not on filedocumented in this encounter
--- OUTSIDE RECORDS SUMMARY | 2025-04-28 11:13 | XMS_ITS | Encounter Summary ---
Author Organization [employer] ([place], [place], [place], [place]) Address [address] [place] [address] Care Team Providers Care Airline Lounge Receptionist Name Role Phone Unavailable Primary Care Provider Unavailabl e Encounter Details Date Type Department Care Team (Late st Contact Info) Description 12/01/2018 Transcribed Document [facility] [place] [address] [place] [address] ProviderErika MD [address] [place] [address] Social History Tobacco Use Types [...]
--- OUTSIDE RECORDS SUMMARY | 2025-04-28 11:13 | XMS_ITS | Encounter Summary ---
Author Organization [employer] ([place], [place], [place], [place]) Address [address] [place] [address] Care Team Providers Care Molder Sweep Name Role Phone Unavailable Primary Care Provider Unavailabl e Encounter Details Date Type Department Care Team (Late st Contact Info) Description 11/21/2018 Transcribed Document [facility] [place] Family Medicine [address] [place] [address] ProviderErika MD [address] [place] [address] Social History Tobacco Use Types Packs/Day Years Used Date Smoking Tobacco: Never Assessed Sex and Gender Information Value Date Recorded Sex Assigned at Not on file Legal Sex Male 5:03 PM CDT Gender Identity Not on file Sexual Orientation Not on file documented as of this encounter Miscellaneous Notes * Radhaner Conversion Note - Erika ProviderMD - 11/21/2018 9:37 AM CDT Consult Phone Call Documentation Entered On: 11/21/2018 9:41 EDT Performed On: 11/21/2018 9:37 EDT by José Miguel Tran, [facility] Phone Call for Consults Consult Phone Call/Page Attempt : Other: Nurse spoke to Dr. Amaro. José Miguel Tran [facility] - 11/21/2018 9:40 EDT documented in this encounter Plan of Treatment Not on file documented as of this encounter Visit Diagnoses Not on filedocumented in this encounter
--- OUTSIDE RECORDS SUMMARY | 2025-04-28 11:13 | XMS_ITS | Encounter Summary ---
Author Organization [employer] ([place], [place], [place], [place]) Address [address] [place] [address] Care Team Providers Care Railroad Cook Name Role Phone Unavailable Primary Care Provider Unavailabl e Encounter Details Date Type Department Care Team (Late st Contact Info) Description 11/28/2018 Transcribed Document [facility] [place] Family Medicine [address] [place] [address] ProviderErika MD [address] [place] [address] Social History Tobacco Use Types [...]
--- OUTSIDE RECORDS SUMMARY | 2025-04-28 11:13 | XMS_ITS | Encounter Summary ---
Author Organization [employer] [facility] ([place], [place], [place], [place]) Address [address] [place] [address] Care Team Providers Care Suction Plate Carrier Cleaner Name Role Phone Unavailable Primary Care Provider Unavailabl e Encounter Details Date Type Department Care Team (Late st Contact Info) Description 11/28/2018 Transcribed Document [facility] [place] [address] [place] [address] ProviderErika MD [address] [place] [address] Social History Tobacco Use Types Packs/Day Years Used Date Smoking Tobacco: Never Assessed Sex and Gender Information Value Date Recorded Sex Assigned at Not on file Legal Sex Male 5:03 PM CDT Gender Identity Not on file Sexual Orientation Not on file documented as of this encounter Miscellaneous Notes * Cerner Conversion Note - Erika ProviderMD - 11/28/2018 10:19 AM CDT [facility] Main OR IntraOp Summary Primary Physician: SAMAN BERNSTEIN MD-GAE Finalized Date/Time: 11/30/18 09:14:16 Pt. Name: DOTTIE VILLASENOR D.O.B./Sex: 1940 Male Med Rec #: [id number] Physician: JULIO CESAR CARVALHO MD-[facility] Financial #: [id number] Pt. Type: I Room/Bed: [facility]/1 Admit/Disch: 11/16/18 06:45:00 - Institution: [facility] IntraOp Case Attendance Entry 1 Entry 2 Entry 3 Case Attendee SAMAN BERNSTEIN MD-SALMA GARCIA MD WURTELE, JOHN L. Role Performed Surgeon/Proceduralist, Anesthesiologist Hedis Registered Nurse Rn, Ancillary First Time In 11/28/18 10:10:00 11/28/18 10:10:00 11/28/18 10:10:00 Time Out 11/28/18 10:35:00 11/28/18 10:35:00 11/28/18 10:35:00 Procedure Esophagogastroduodenosco Esophagogastroduodenosco Esophagogastroduodenosco py py py Other Attendee Superficial Wound Closed By: Last Modified By: Sukumar Casanova, Sukumar Gibbs, Sukumar Gibbs RN 11/28/18 11:00:07 11/28/18 11:00:07 11/28/18 11:00:07 Entry 4 Entry 5 Case Attendee Dianne Garcia, Sukumar Gibbs, TONJA Role Performed Scientific Laboratory Supervisor, First Scientific Laboratory Supervisor, Second Time In 11/28/18 10:10:00 11/28/18 10:10:00 Time Out 11/28/18 10:35:00 11/28/18 10:35:00 Procedure Esophagogastroduodenosco Esophagogastroduodenosco py py Other Attendee Superficial Wound Closed By: Last Modified By: Sukumar Casanova, Sukumar Gibbs RN 11/28/18 11:00:07 11/28/18 11:00:07 [facility] IntraOp Case Attendance Audit 11/28/18 11:00:07 Instrumentation Manager: ANDRADES Modifier: PANTANOS 1 <+> Time Out 1 <*> Procedure Esophagogastroduodenoscopy 2 <+> Time Out 2 <*> Procedure Esophagogastroduodenoscopy 3 <+> Time Out 3 <*> Procedure Esophagogastroduodenoscopy 4 <+> Time Out 4 <*> Procedure Esophagogastroduodenoscopy 5 <+> Time Out 5 <*> Procedure Esophagogastroduodenoscopy 11/28/18 10:20:36 Instrumentation Manager: FABIANAANOS Modifier: PANTANOS <+> 1 Procedure 2 <+> Time In 2 <*> Procedure Esophagogastroduodenoscopy 3 <+> Time In 3 <*> Procedure Esophagogastroduodenoscopy 4 <+> Time In 4 <*> Procedure Esophagogastroduodenoscopy 5 <+> Time In 5 <*> Procedure Esophagogastroduodenoscopy [facility] IntraOp Case Times Entry 1 Patient In Room Time 11/28/18 10:10:00 Out Room Time 11/28/18 10:35:00 Anesthesia Start Time 11/28/18 10:10:00 Stop Time 11/28/18 10:35:00 Surgery / Procedure Times Start Time 11/28/18 10:19:00 Stop Time 11/28/18 10:33:00 Last Modified By: Sukumar Casanova RN 11/28/18 10:59:40 [facility] IntraOp Case Times Audit 11/28/18 10:59:40 Instrumentation Manager: PANTANOS Modifier: PANTANOS <+> 1 Out Room Time <+> 1 Stop Time <+> 1 Stop Time 11/28/18 10:22:00 Instrumentation Manager: PANTANOS Modifier: PANTANOS <+> 1 Start Time [facility] IntraOp Departure from OR Entry 1 Integumentary Assessment Transfer/Handoff Transfer to PACU Phase I Handoff Method Bedside/Face to face, Online nursing summary Post-op Transport Stretcher/Gurney Via Patient Transport Sukumar Casanova RN, Accompanied by SALMA MARROQUIN MD Last Modified By: Sukumar Casanova RN 11/28/18 10:25:50 [facility] IntraOp Departure from OR Audit 11/28/18 10:25:50 Instrumentation Manager: FABIANAANOS Modifier: PANTANOS 1 <*> Patient Transport Accompanied by Sukumar Casanova RN [facility] IntraOp Fire Risk Assessment Entry 1 Fire [...] Modified By: Sukumar Casanova RN 11/28/18 10:15:58 [facility] IntraOp General Case Director Of Sustainable Design 1 Case Information OR OR [facility] Case Level 1 Room Verified Yes Wound Class II - Clean-Contaminated Specialty SN Gastroenterology Anesthesia Type General ASA Class 4E Diagnosis Preop Diagnosis GASTRIC BLEED Postop Same As Preop Yes Postop Diagnosis GASTRIC BLEED Last Modified By: Sukumar Casanova RN 11/28/18 10:18:38 [facility] IntraOp General Case Data Audit 11/28/18 10:18:38 Instrumentation Manager: WILL Modifier: PANTANOS <+> 1 Postop Same As Preop <+> 1 Preop Diagnosis <+> 1 Postop Diagnosis [facility] IntraOp Intraoperative Assessment Entry 1 Handoff Method Bedside/Face to face, Online nursing summary Valid History / Yes Physical in Chart Preoperative Yes Checklist Reviewed/Evaluated Allergies Reviewed Yes Patient is Latex No Sensitive Level of WDL Consciousness (WDL = Alert, Oriented to Person, Place, and Time) Skin Assessment No Verified Present Upon IVs Arrival to OR Last Modified By: Sukumar Casanova RN 11/28/18 10:21:06 [facility] IntraOp Intraoperative Equipment Entry 1 Type Monitoring Equipment Intraop Monitoring Electrocardiogram Three lead placement (ECG) Electrode Placement Blood Pressure Non-Invasive BP Device Source Blood Pressure Arm, right upper Location Pulse Oximeter Hand, left Probe Site Antiembolic Devices Scopes Photo/Video Documentation Last Modified By: Sukumar Casanova RN 11/28/18 10:21:34 [facility] IntraOp Patient Positioning Entry 1 Procedure Esophagogastroduodenosco [...] Modified By: Sukumar Casanova RN 11/28/18 10:20:33 [facility] IntraOp Sign In Entry 1 Patient, Site, [...] Modified By: Sukumar Casanova RN 11/28/18 10:22:31 [facility] IntraOp Sign Out Entry 1 RN Confirmation [...] Modified By: Sukumar Casanova RN 11/28/18 11:00:01 [facility] IntraOp Sign Out Audit 11/28/18 11:00:01 Instrumentation Manager: WILL Modifier: WILL <+> 1 RN Sign Out Signature Date/Time [facility] IntraOp Surgical Procedures Entry 1 Procedure Esophagogastroduodenosco py Additional (EGD WITH CONTROL OF Procedure BLEEDING) Description Primary Procedure Yes Primary Surgeon SAMAN BERNSTEIN MD-TAO Start 11/28/18 10:19:00 Stop 11/28/18 10:33:00 Anesthesia Type General Specialty SN Gastroenterology Wound Class II - Clean-Contaminated Last Modified By: Sukumar Casanova RN 11/28/18 10:59:52 [facility] IntraOp Surgical Procedures Audit 11/28/18 10:59:52 Instrumentation Manager: WILL Modifier: WILL 1 <*> Procedure Esophagogastroduodenoscopy 1 <+> Specialty 11/28/18 10:59:43 Instrumentation Manager: WILL Modifier: WILL <+> 1 Start <+> 1 Stop [facility] IntraOp Temp Regulation Devices Entry 1 Temp Regulation Temperature Warm blankets Regulation Device Temperature Full body Regulation Site Last Modified By: Sukumar Casanova RN 11/28/18 10:26:13 [facility] IntraOP Time Out Entry 1 Procedure to [...] Modified By: Sukumar Casanova RN 11/28/18 10:21:53 [facility] IntraOP Time Out Audit 11/28/18 10:21:53 Instrumentation Manager: WILL Modifier: WILL 1 <+> Time Out Pause Time 1 <*> Procedure to be Performed Esophagogastroduodenoscopy Case Comments <None> Finalized By: JODI PITT Document Signatures Signed By: Sukumar Casanova RN 11/28/18 11:00 JODI PITT 11/30/18 09:14 Unfinalized History Date/Time Username Reason for Unfinalizing Freetext Reason for Unfinalizing 11/30/18 09:13 [email or web address] Correct Billing Electronically signed by Parveen [facility] Conversion Foil Spooler Cerner at 12/08/2022 12:19 PM CDT documented in this encounter Plan of Treatment Not on file documented as of this encounter Visit Diagnoses Not on filedocumented in this encounter
--- OUTSIDE RECORDS SUMMARY | 2025-04-28 11:13 | XMS_ITS | Encounter Summary ---
Author Organization [employer] ([place], [place], [place], [place]) Address [address] [place] [address] Care Team Providers Care Aircraft Maintenance Manager Name Role Phone Unavailable Primary Care Provider Unavailabl e Encounter Details Date Type Department Care Team (Late st Contact Info) Description 11/16/2018 Transcribed Document [facility] [place] Family Medicine [address] [place] [address] ProviderErika MD [address] [place] [address] Social History Tobacco Use Types [...] form. Electronically signed by Christina Saini Conversion Operating Room Registered Nurse Cerner at 12/12/2022 8:26 AM CDT documented in this encounter Plan of Treatment Not on file documented as of this encounter Visit Diagnoses Not on filedocumented in this encounter
--- OUTSIDE RECORDS SUMMARY | 2025-04-28 11:13 | XMS_ITS | Encounter Summary ---
Author Organization [employer] ([place], [place], [place], [place]) Address [address] [place] [address] Care Team Providers Care Fuel Island Attendant Name Role Phone Unavailable Primary Care Provider Unavailabl e Encounter Details Date Type Department Care Team (Late st Contact Info) Description 11/23/2018 Transcribed Document [facility] [place] [address] [place] [address] ProviderErika MD [address] [place] [address] Social History Tobacco Use Types [...] Tab, Oral, At Bedtime saliva substitutes, 1 [place], Buccal, Q2H, PRN Senokot, 17.2 mg= 2 Tab, Oral, BID Zofran, 4 mg= 2 mL, IV Push, Q4H, PRN Electronically signed by Parveen, [facility] Conversion Electrical Journeyman Cerner at 12/08/2022 12:26 PM CDT documented in this encounter Plan of Treatment Not on file documented as of this encounter Visit Diagnoses Not on filedocumented in this encounter
--- OUTSIDE RECORDS SUMMARY | 2025-04-28 11:13 | XMS_ITS | Encounter Summary ---
Author Organization [employer] ([place], [place], [place], [place]) Address [address] [place] [address] Care Team Providers Care Laundry Room Attendant Name Role Phone Unavailable Primary Care Provider Unavailabl e Encounter Details Date Type Department Care Team (Late st Contact Info) Description 11/24/2018 Transcribed Document [facility] [place] [address] [place] [address] ProviderErika MD [address] [place] [address] Social History Tobacco Use Types [...]
--- OUTSIDE RECORDS SUMMARY | 2025-04-28 11:13 | XMS_ITS | Encounter Summary ---
Author Organization [employer] ([place], [place], [place], [place]) Address [address] [place] [address] Care Team Providers Care Seismic Prospecting Observer Helper Name Role Phone Unavailable Primary Care Provider Unavailabl e Encounter Details Date Type Department Care Team (Late st Contact Info) Description 11/28/2018 Transcribed Document [facility] [place] [address] [place] [address] ProviderErika MD [address] [place], [place] [id number] Social History Tobacco Use Types Packs/Day Years Used Date Smoking Tobacco: Never Assessed Sex and Gender Information Value Date Recorded Sex Assigned at Not on file Legal Sex Male 5:03 PM CDT Gender Identity Not on file Sexual Orientation Not on file documented as of this encounter Miscellaneous Notes * Cerner Conversion Note - Historical ProviderMD - 11/28/2018 2:00 AM CDT Safety Consultant Details Entered On: 11/28/2018 2:45 EDT Performed [...]
--- OUTSIDE RECORDS SUMMARY | 2025-04-28 11:13 | XMS_ITS | Encounter Summary ---
Author Organization [employer] ([place], [place], [place], [place]) Address [address] [place] [address] Care Team Providers Care Wastewater Analyst Lab Analyst Name Role Phone Unavailable Primary Care Provider Unavailabl e Encounter Details Date Type Department Care Team (Late st Contact Info) Description 12/01/2018 Transcribed Document [facility] [place] Family Medicine [address] [place] [address] ProviderErika MD [address] [place], [place] [id number] Social History Tobacco Use Types Packs/Day Years [...] 1940 Associated Diagnoses: CAD (coronary artery disease), [place] coronary artery; Thrombocytopenia; Coronary artery disease; HTN [...] complaints. 11/30/18: No complaints, transferred back to [facility] yesterday 12/01/18: Up to chair today, hopefully to [facility] today Review of Systems Constitutional: Weakness. [...] Musculoskeletal: left arm swelling. Integumentary: Warm, Dry, [place], incision is C/D/I. Neurologic: Alert, left sided [...] (Current Encounter/Past 24 Hours) PT 14.6 Second(s) [place] 12/01/2018 06:53 INR 1.4 [place] 12/01/2018 06:53 . Impression and Plan Plan: [...] time of discharge- has sent information to [facility] -Transfer to [facility] 11/24/18 -POD#8 -Awaiting transfer to [facility] -Awaiting response from [facility] 11/25/18 -POD#9 -left upper extremity venous doppler - doppler this am positive for LUE DVT - will start coumadin and heparin bridge -awaiting [facility] 11/26/18 -POD#10 -Heparin drip and coumadin for LUE DVT -Left arm swelling improved today -INR 1.1 today, INR goal 2-3 -Possibly transfer to [facility] this weekend 11/27/18: -POD#11 -Left arm swelling continues to improve -Continues on Coumadin and heparin bridge -INR: 1.4 (1.1 yesterday) goal: 2 to 3 -[facility] soon,? Tomorrow 11/28/18: -POD#12 -BP in [...] has been set up. -Transferred to [facility] 11/29/18: -POD#13 -Upper endoscopy showed duodenal [...] D/C due to GI bleed. -[facility] 11/30/18 POD # 14 EGD yesterday - duodenal ulceration with clot, no active bleeding and no intervention performed INR trending down, off coumadin and heparin Speech signed off yesterday - speech and cognition back to baseline Watch INR and H&[facility] upon discharge 12/01/18 POD # 15 Bed available at [facility] today\.brTH stable, INR 1.4 EF 55-60% per echo 11/16/18 DVT Prophylaxis: SCDs Diagnosis CAD (coronary artery disease), [place] coronary artery - Admitting, Medical. Thrombocytopenia - [...] - Discharge, Medical. Electronically signed by Parveen [facility] Conversion Medical Instrument Technician Cerner at 12/08/2022 12:20 PM CDT documented in this encounter Plan of Treatment Not on file documented as of this encounter Visit Diagnoses Not on filedocumented in this encounter
--- OUTSIDE RECORDS SUMMARY | 2025-04-28 11:13 | XMS_ITS | Encounter Summary ---
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
--- OUTSIDE RECORDS SUMMARY | 2025-04-28 11:13 | XMS_ITS | Encounter Summary ---
Author Organization [employer] ([place], [place], [place], [place]) Address [address] [place] [address] Care Team Providers Care Survey Analyst Name Role Phone Unavailable Primary Care Provider Unavailabl e Encounter Details Date Type Department Care Team (Late st Contact Info) Description 11/16/2018 Transcribed Document [facility] [place] Family Medicine [address] [place] [address] ProviderErika MD [address] [place] [address] Social History Tobacco Use Types [...]
--- OUTSIDE RECORDS SUMMARY | 2025-04-28 11:13 | XMS_ITS | Encounter Summary ---
Author Organization [employer] ([place], [place], [place], [place]) Address [address] [place] [address] Care Team Providers Care Telegraph Printer Mechanic Name Role Phone Unavailable Primary Care Provider Unavailabl e Encounter Details Date Type Department Care Team (Late st Contact Info) Description 11/28/2018 Transcribed Document [facility] [place] [address] [place] [address] ProviderErika MD [address] [place] [address] Social History Tobacco Use Types [...]
--- OUTSIDE RECORDS SUMMARY | 2025-04-28 11:13 | XMS_ITS | Encounter Summary ---
Author Organization [employer] ([place], [place], [place], [place]) Address [address] [place] [address] Care Team Providers Care Agile Scrum Coach Name Role Phone Unavailable Primary Care Provider Unavailabl e Encounter Details Date Type Department Care Team (Late st Contact Info) Description 11/28/2018 Transcribed Document [facility] [place] [address] [place] [address] ProviderErika MD [address] [place] [address] Social History Tobacco Use Types [...] access. 20R shoulder x1 attempt using vein cut filer. 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
--- OUTSIDE RECORDS SUMMARY | 2025-04-28 11:13 | XMS_ITS | Encounter Summary ---
Author Organization [employer] ([place], [place], [place], [place]) Address [address] [place] [address] Care Team Providers Care Regional Account Manager Name Role Phone Unavailable Primary Care Provider Unavailabl e Encounter Details Date Type Department Care Team (Late st Contact Info) Description 11/16/2018 Transcribed Document [facility] [place] [address] [place] [address] ProviderErika MD [address] [place] [address] Social History Tobacco Use Types [...] On: 11/16/2018 12:27 EDT by Lorin Pratt, [facility] Phone Call for Consults Consult Phone Call/Page Attempt : Other: Valve: no call Lorin Pratt [facility] - 11/16/2018 13:34 EDT documented in this encounter Plan of Treatment Not on file documented as of this encounter Visit Diagnoses Not on filedocumented in this encounter
--- OUTSIDE RECORDS SUMMARY | 2025-04-28 11:13 | XMS_ITS | Encounter Summary ---
Author Organization [employer] ([place], [place], [place], [place]) Address [address] [place] [address] Care Team Providers Care Hand Nailer Name Role Phone Unavailable Primary Care Provider Unavailabl e Encounter Details Date Type Department Care Team (Late st Contact Info) Description 11/21/2018 Transcribed Document [facility] [place] [address] [place] [address] ProviderErika MD [address] [place] [address] Social History Tobacco Use [...]
--- OUTSIDE RECORDS SUMMARY | 2025-04-28 11:13 | XMS_ITS | Encounter Summary ---
Author Organization [employer] ([place], [place], [place], [place]) Address [address] [place] [address] Care Team Providers Care Silver Designer Name Role Phone Unavailable Primary Care Provider Unavailabl e Encounter Details Date Type Department Care Team (Late st Contact Info) Description 11/28/2018 Transcribed Document [facility] [place] Family Medicine [address] [place] [address] ProviderErika MD [address] [place] [address] Social History Tobacco Use Types [...] : Transfer to critical care Rapid Response Silver Designer #1 : MICHAEL WALLER RN Rapid Response Silver Designer #2 : DIA BINGHAM RN Rapid Response Silver Designer #3 : SRINIVAS LEAL RN [place], CAMER[place], [...] Team Initiation Reason Details : 3E 333. YARN HAULER notified of pt with decrease in BP despite treatment. MD notified. Bolus given and pt labwork obtained. 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
--- OUTSIDE RECORDS SUMMARY | 2025-04-28 11:13 | XMS_ITS | Encounter Summary ---
Author Organization [employer] ([place], [place], [place], [place]) Address [address] [place] [address] Care Team Providers Care Meter Repairer Name Role Phone Unavailable Primary Care Provider Unavailabl e Encounter Details Date Type Department Care Team (Late st Contact Info) Description 11/20/2018 Transcribed Document [facility] Pulm & Critical Care Medicine [address] [place] [address] Eloy Rodrigues MD [address] [place], [place] [id number] Social History Tobacco Use Types Packs/Day Years [...] 16:32:27 Trans: 11/20/2018 22:52:43 Processed: 11/22/2018 09:57:30 [place] CC1: Eloy Rodrigues M.D. documented in this encounter Plan of Treatment Not on file documented as of this encounter Visit Diagnoses Not on filedocumented in this encounter
--- OUTSIDE RECORDS SUMMARY | 2025-04-28 11:13 | XMS_ITS | Encounter Summary ---
Author Organization [employer] ([place], [place], [place], [place]) Address [address] [place] [address] Care Team Providers Care Cushion Stuffer Name Role Phone Unavailable Primary Care Provider Unavailabl e Encounter Details Date Type Department Care Team (Late st Contact Info) Description 11/28/2018 Transcribed Document [facility] [place] [address] [place] [address] ProviderErika MD [address] [place] [address] Social History Tobacco Use Types [...]
--- OUTSIDE RECORDS SUMMARY | 2025-04-28 11:13 | XMS_ITS | Encounter Summary ---
Author Organization [employer] ([place], [place], [place], [place]) Address [address] [place] [address] Care Team Providers Care Stroke Coordinator Name Role Phone Unavailable Primary Care Provider Unavailabl e Encounter Details Date Type Department Care Team (Late st Contact Info) Description 11/28/2018 Transcribed Document [facility] [place] Family Medicine [address] [place] [address] ProviderErika MD [address] [place], [place] [address] Social History Tobacco Use Types Packs/Day Years [...]
--- OUTSIDE RECORDS SUMMARY | 2025-04-28 11:13 | XMS_ITS | Encounter Summary ---
Author Organization [employer] ([place], [place], [place], [place]) Address [address] [place] [address] Care Team Providers Care Salvation Army Officer Name Role Phone Unavailable Primary Care Provider Unavailabl e Encounter Details Date Type Department Care Team (Late st Contact Info) Description 11/24/2018 Transcribed Document [facility] [place] Family Medicine [address] [place] [address] ProviderErika MD [address] [place] [address] Social History Tobacco Use Types [...] On: 11/24/2018 13:21 EDT by ODALYS FAULKNER Rn-Shampoo TechnicianLobster Fisherman Note Care Management Note : 11/24/18 Andra from [facility] called to let me know they started a precert on this pt. CF Care Management Note Report : ODALYS FAULKNER Rn-Shampoo Technician - 11/22/18 13:56:32 11/22/18 Pt has had a cva. Spoke to his Connie and son Sumeet at the bedside. Pt is lfacid on the left side. Discussed the need for STR and they decided on [facility]. Sent pt info via [employer] to [facility]. CF Documentation Status Complete : Yes ODALYS FAULKNER Rn-Shampoo Technician - 11/24/2018 13:21 EDT Electronically signed by Parveen [facility] Conversion Deflector Operator Cerjuju at 12/08/2022 12:31 PM CDT documented in this encounter Plan of Treatment Not on file documented as of this encounter Visit Diagnoses Not on filedocumented in this encounter
--- OUTSIDE RECORDS SUMMARY | 2025-04-28 11:13 | XMS_ITS | Encounter Summary ---
Author Organization [employer] ([place], [place], [place], [place]) Address [address] [place] [address] Care Team Providers Care Credit Officer Name Role Phone Unavailable Primary Care Provider Unavailabl e Encounter Details Date Type Department Care Team (Late st Contact Info) Description 12/01/2018 Transcribed Document [facility] [place] [address] [place] [address] ProviderErika MD [address] [place] [address] Social History Tobacco Use Types [...] KISHA BROWER, PT - 12/01/2018 18:30 EDT [facility] Goals Mobility/Bed Mobility LTG PT Grid Goal [...] EDT Electronically signed by Christina Saini Conversion Duplicating Machine Servicer Cerner at 12/08/2022 12:38 PM CDT documented in this encounter Plan of Treatment Not on file documented as of this encounter Visit Diagnoses Not on filedocumented in this encounter
--- OUTSIDE RECORDS SUMMARY | 2025-04-28 11:13 | XMS_ITS | Encounter Summary ---
Author Organization [employer] ([place], [place], [place], [place]) Address [address] [place] [address] Care Team Providers Care Aeronautical Engineering Professor Name Role Phone Unavailable Primary Care Provider Unavailabl e Encounter Details Date Type Department Care Team (Late st Contact Info) Description 11/30/2018 Transcribed Document [facility] [place] Family Medicine [address] [place] [address] ProviderErika MD [address] [place] [address] Social History Tobacco Use Types [...] Bed scale Routine Weight Entry Format : [place] Routine Weight, Pounds : 164 lb Routine Weight, Ounces : 1 oz Routine Weight Calculation : 74.57 kg Height Source : Measured Height Entry Format : [place] Height, Feet : 6 ft Height, Inches : 1 Inch Clinical Height : 185.42 cm Body Surface Area (BSA), Routine : 1.98 m2 Body Mass Index (BMI), Routine : 21.69 kg/m2 Dixie Fox RN - 11/30/2018 6:12 EDT documented in this encounter Plan of Treatment Not on file documented as of this encounter Visit Diagnoses Not on filedocumented in this encounter
--- OUTSIDE RECORDS SUMMARY | 2025-04-28 11:13 | XMS_ITS | Encounter Summary ---
Author Organization [employer] ([place], [place], [place], [place]) Address [address] [place] [address] Care Team Providers Care Cloth Washer Operator Name Role Phone Unavailable Primary Care Provider Unavailabl e Encounter Details Date Type Department Care Team (Late st Contact Info) Description 11/16/2018 Transcribed Document [facility] [place] [address] [place] [address] ProviderErika MD [address], [place] [id number] Social History Tobacco Use Types Packs/Day Years [...] All Problems Prostate stricture / SNOMED CT 87588748 / Confirmed Restless legs syndrome / SNOMED CT 72299503 / Confirmed Nocturia / SNOMED CT 925381354 / Confirmed Cancer of skin of face / SNOMED CT 9435561450 / Confirmed Frequent urination / SNOMED CT 597175261 / Confirmed Hypothyroidism / SNOMED CT 29881985 / Confirmed HTN - Hypertension / SNOMED CT 6919260658 / Confirmed Disorder of prostate ( enlarged) / SNOMED CT 88296288 / Confirmed CAD (coronary artery disease) / SNOMED CT 58653217 / Confirmed At risk for sleep apnea / IMO 95200842 / Confirmed Arthritis / SNOMED CT 9623787 / Confirmed Aortic valve insufficiency / SNOMED CT 496582904 / Confirmed Aneurysm, 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 [...] EDT Height Source Measured Height Entry Format [place] Height/Length, TOGOLESE (ft) 6 ft Height/Length TOGOLESE 1 Inch CLINICALHEIGHT 185.42 cm [place] Body Weight 79 kg Weight Source Standing scale Weight Entry Format [place] Weight [place] lb 174 lb Weight [place] oz 5 oz CLINICALWEIGHT 79.23 kg Body [...] of motion, Normal strength. Integumentary: Warm, Dry, [place]. Neurologic: Alert, Oriented. Psychiatric: Cooperative, Appropriate mood [...] % 32.4 % Lymph # 2.32 x10(3)/uL [place] % 9.5 % HI [place] # 0.68 K/uL Eos % 1.1 % [...] Color Yellow Urine Appearance Clear Urine Specific [place] 1.016 Urine pH Dipstick 6.5 Urine Leukocyte Esterase Negative Urine Nitrite Negative Urine Protein Dipstick Negative Urine Glucose Dipstick Negative Urine Ketones Dipstick Negative Urine Urobilinogen Dipstick 0.2 EU/dL Urine Bilirubin Dipstick Negative Urine Blood Dipstick Negative 11/15/2018 13:33 EDT RBC Product Ready RBC Ready # of Units 2 . Impression and Plan Condition: Stable. Electronically signed by Christina Saini Conversion Head Banquet Waiter/Waitress Cerner at 12/08/2022 12:35 PM CDT documented in this encounter Plan of Treatment Not on file documented as of this encounter Visit Diagnoses Not on filedocumented in this encounter
--- OUTSIDE RECORDS SUMMARY | 2025-04-28 11:14 | XMS_ITS | Encounter Summary ---
Author Organization [employer] ([place], [place], [place], [place]) Address [address] [place] [address] Care Team Providers Care Water Plumber Name Role Phone Unavailable Primary Care Provider Unavailabl e Encounter Details Date Type Department Care Team (Late st Contact Info) Description 11/05/2018 Transcribed Document [facility] [place] [address] [place] [address] ProviderErika MD [address] [place] [address] Social History Tobacco Use Types [...] - 11/05/2018 12:46 EDT Electronically signed by Christina Saini Conversion Superintendent Marine Oil Terminal Cerner at 12/08/2022 12:12 PM CDT documented in this encounter Plan of Treatment Not on file documented as of this encounter Visit Diagnoses Not on filedocumented in this encounter
--- OUTSIDE RECORDS SUMMARY | 2025-04-28 11:14 | XMS_ITS | Encounter Summary ---
Author Organization [employer] ([place], [place], [place], [place]) Address [address] [place] [address] Care Team Providers Care Circular Tank Cooper Name Role Phone Unavailable Primary Care Provider Unavailabl e Encounter Details Date Type Department Care Team (Late st Contact Info) Description 11/27/2018 Transcribed Document [facility] [place] [address] [place] [address] ProviderErika MD [address] [place] [address] Social History Tobacco Use Types [...]
--- OUTSIDE RECORDS SUMMARY | 2025-04-28 11:14 | XMS_ITS | Encounter Summary ---
Author Organization [employer] ([place], [place], [place], [place]) Address [address] [place] [address] Care Team Providers Care Tuber Operator Name Role Phone Unavailable Primary Care Provider Unavailabl e Encounter Details Date Type Department Care Team (Late st Contact Info) Description 11/27/2018 Transcribed Document [facility] [place] [address] [place] [address] ProviderErika MD [address] [place], [place] [id number] Social History Tobacco Use Types Packs/Day Years Used Date Smoking Tobacco: Never Assessed Sex and Gender Information Value Date Recorded Sex Assigned at Not on file Legal Sex Male 5:03 PM CDT Gender Identity Not on file Sexual Orientation Not on file documented as of this encounter Miscellaneous Notes * Cerner Conversion Note - Historical ProviderMD - 11/27/2018 2:00 AM CDT Plant Operations Vice President Details Entered On: 11/27/2018 3:00 EDT Performed [...]
--- OUTSIDE RECORDS SUMMARY | 2025-04-28 11:14 | XMS_ITS | Encounter Summary ---
Author Organization [employer] ([place], [place], [place], [place]) Address [address] [place] [address] Care Team Providers Care Fiber Designer Name Role Phone Unavailable Primary Care Provider Unavailabl e Encounter Details Date Type Department Care Team (Late st Contact Info) Description 11/05/2018 Transcribed Document [facility] [place] [address] [place] [address] ProviderErika MD [address] [place] [address] Social History Tobacco Use Types [...] 11/05/2018 12:46 EDT Electronically signed by Parveen [facility] Conversion Value Analysis Coordinator Cerner at 12/08/2022 12:20 PM CDT documented in this encounter Plan of Treatment Not on file documented as of this encounter Visit Diagnoses Not on filedocumented in this encounter
--- OUTSIDE RECORDS SUMMARY | 2025-04-28 11:14 | XMS_ITS | Encounter Summary ---
Author Organization [employer] ([place], [place], [place], [place]) Address [address] [place] [address] Care Team Providers Care Telegraphic Typewriter Operator Chief Name Role Phone Unavailable Primary Care Provider Unavailabl e Encounter Details Date Type Department Care Team (Late st Contact Info) Description 11/05/2018 Transcribed Document [facility] [place] [address] [place] [address] ProviderErika MD [address] [place] [address] Social History Tobacco Use Types Packs/Day Years Used Date Smoking Tobacco: Never Assessed Sex and Gender Information Value Date Recorded Sex Assigned at Not on file Legal Sex Male 5:03 PM CDT Gender Identity Not on file Sexual Orientation Not on file documented as of this encounter Miscellaneous Notes * Cerner Conversion Note - Erika ProviderMD - 11/05/2018 12:48 PM CDT [address] [address] Patient Copy Patient Information: Name: DOTTIE VILLASENOR Current Date: 11/05/2018 12:48:54 : 1940 Patient Address: [address] [place] [id number] Patient Attending Physician: LEYLA ARMENDARIZ MD-CAR Primary Care Provider: DEMETRICE ARMIJO NP-JORGE Primary Care Provider Discharge Diagnosis: Weight on Admission: 170 lb, 0 oz Comment: Follow-up Instructions: With: Address: When: JULIO CESAR GAXIOLA [address] [place] [address], [address] [address] Business (1) 1:30 PM Comments: Follow up with Dr. Gaxiola , surgeon, October at 1:30 pm With: Address: When: JULIO [address]ESAR [address] [place] [address] [email or web address] (1) 1:15 PM Comments: Follow up with [...] you are awake and alert. ??? Take fonb-qys-uotpdgb and prescription medicines only as told by [...] 05/31/2014 Document Revised: 01/12/2017 Document Reviewed: 11/29/2016 [employer] Interactive Patient Education ? 2017 [employer]. Radial Site Care Introduction Refer to this [...] 02/26/2006 Document Revised: 01/15/2017 Document Reviewed: 01/11/2014 [employer] Interactive Patient Education ? 2017 [employer]. CIGARETTE SMOKING: The facts are clear, cigarette smoking will shorten your life. Smoking can cause many illnesses along the way. As a healthcare provider, we recommend that you stop smoking. Assistance with quitting is available by contacting 2-548-TCAW-NOW. This is a free resource providing counseling, [...] Be sure to sign up for the [email or web address] patient portal, which gives you 16/03 access to your medical information ??? including these discharge instructions ??? using your computer, smartphone, or tablet. Just go to [employer] to get started. Questions? Call . [facility] would like to thank you for allowing us to assist you with your healthcare needs. HAMILTON Jarvis ROBERT H, (or investment representative) have received the above patient education materials/instructions and have verbalized understanding: Patient Signature _ Date/Time Patient Sewer Pipe Layer Signature (if needed) Date/Time Clinician/Hospital Sewer Pipe Layer Signature (if needed) Date/Time Electronically signed by Parveen, [facility] Conversion Retanned Leather Roller Cerner at 12/08/2022 12:14 PM CDT documented in this encounter Plan of Treatment Not on file documented as of this encounter Visit Diagnoses Not on filedocumented in this encounter
--- OUTSIDE RECORDS SUMMARY | 2025-04-28 11:14 | XMS_ITS | Encounter Summary ---
Author Organization [employer] ([place], [place], [place], [place]) Address [address] [place] [address] Care Team Providers Care Engineer Design And Construction Name Role Phone Unavailable Primary Care Provider Unavailabl e Encounter Details Date Type Department Care Team (Late st Contact Info) Description 11/27/2018 Transcribed Document [facility] [place] Family Medicine [address] [place] [address] ProviderErika MD [address] [place], [place] [id number] Social History Tobacco Use Types Packs/Day Years [...] 1940 Associated Diagnoses: CAD (coronary artery disease), nikolai coronary artery; Thrombocytopenia; Coronary artery disease; HTN [...] swelling - improved today. Integumentary: Warm, Dry, [place], incision is C/D/I. Neurologic: Alert, Oriented, left [...] (Current Encounter/Past 24 Hours) PT 14.8 Second(s) [place] 11/27/2018 07:36 PTT 55.8 Second(s) [place] 11/26/2018 11:12 INR 1.4 [place] 11/27/2018 07:36 . Impression and Plan Plan: [...] time of discharge- has sent information to [facility] -Transfer to [facility] 11/24/18 -POD#8 -Awaiting transfer to [facility] -Awaiting response from [facility] 11/25/18 -left upper extremity venous doppler - doppler this am positive for LUE DVT - will start coumadin and heparin bridge -awaiting [facility] 11/26/18 -Heparin drip and coumadin for LUE DVT Left arm swelling improved today INR 1.1 today, INR goal 2-3 Possibly transfer to [facility] this weekend 11/27/18: Left arm swelling continues to improve Continues on Coumadin and heparin bridge INR: 1.4 (1.1 yesterday) goal: 2 to 3 [facility] soon,? Tomorrow EF 55-60% per echo 11/16/18 DVT Prophylaxis: SCDs Diagnosis CAD (coronary artery disease), nikolai coronary artery - Admitting, Medical. Thrombocytopenia - [...]
--- OUTSIDE RECORDS SUMMARY | 2025-04-28 11:14 | XMS_ITS | Encounter Summary ---
Author Organization [employer] ([place], [place], [place], [place]) Address [address] [place] [address] Care Team Providers Care Retail Consultant Name Role Phone Unavailable Primary Care Provider Unavailabl e Encounter Details Date Type Department Care Team (Late st Contact Info) Description 11/19/2018 Transcribed Document [facility] [place] [address] [place] [address] ProviderErika MD [address] [place], [place] [id number] Social History Tobacco Use Types Packs/Day Years [...] 1940 Associated Diagnoses: CAD (coronary artery disease), [place] coronary artery; Thrombocytopenia; Coronary artery disease; HTN [...] S1, S2, No edema. Integumentary: Warm, Dry, [place], incision is C/D/I, He did not follow [...] Prophylaxis: SCDs Diagnosis CAD (coronary artery disease), [place]q coronary artery - Admitting, Medical. Thrombocytopenia - [...]
--- OUTSIDE RECORDS SUMMARY | 2025-04-28 11:14 | XMS_ITS | Encounter Summary ---
Author Organization [employer] ([place], [place], [place], [place]) Address [address] [place] [address] Care Team Providers Care Solar Installation Helper Name Role Phone Unavailable Primary Care Provider Unavailabl e Encounter Details Date Type Department Care Team (Late st Contact Info) Description 11/26/2018 Transcribed Document [facility] [place] Family Medicine [address] [place] [address] ProviderErika MD [address] [place], [place] [id number] Social History Tobacco Use Types Packs/Day Years [...] 1940 Associated Diagnoses: CAD (coronary artery disease), [place] coronary artery; Thrombocytopenia; Coronary artery disease; HTN [...] swelling - improved today. Integumentary: Warm, Dry, [place], incision is C/D/I. Neurologic: Alert, left sided [...] of discharge- CM has sent information to [facility] -Transfer to [facility] 11/24/18 -POD#8 -Awaiting transfer to [facility] -Awaiting response from [facility] 11/25/18 -left upper extremity venous doppler - doppler this am positive for LUE DVT - will start coumadin and heparin bridge -awaiting [facility] 11/26/18 -Heparin drip and coumadin for LUE DVT Left arm swelling improved today INR 1.1 today, INR goal 2-3 Possibly transfer to [facility] this weekend EF 55-60% per echo 11/16/18 DVT Prophylaxis: SCDs Diagnosis CAD (coronary artery disease), [place] coronary artery - Admitting, Medical. Thrombocytopenia - [...]
--- OUTSIDE RECORDS SUMMARY | 2025-04-28 11:14 | XMS_ITS | Encounter Summary ---
Author Organization [employer] ([place], [place], [place], [place]) Address [address] [place] [address] Care Team Providers Care Bowling Ball Patcher Name Role Phone Unavailable Primary Care Provider Unavailabl e Encounter Details Date Type Department Care Team (Late st Contact Info) Description 11/27/2018 Transcribed Document [facility] [place] Family Medicine [address] [place] [address] ProviderErika MD [address] [place] [address] Social History Tobacco Use Types [...]
--- OUTSIDE RECORDS SUMMARY | 2025-04-28 11:14 | XMS_ITS | Encounter Summary ---
Author Organization [employer] ([place], [place], [place], [place]) Address [address] [place] [address] Care Team Providers Care Astronomy Teacher Name Role Phone Unavailable Primary Care Provider Unavailabl e Encounter Details Date Type Department Care Team (Late st Contact Info) Description 11/05/2018 Transcribed Document [facility] Cardiology [address] [place] [address] Lc Armendariz MD [address] [facility] [address] [place] [address] Social History Tobacco Use Types Packs/Day Years Used Date Smoking Tobacco: Never Assessed Sex and Gender Information Value Date Recorded Sex Assigned at Not on file Legal Sex Male 5:03 PM CDT Gender Identity Not on file Sexual Orientation Not on file documented as of this encounter Miscellaneous Notes * Cerner Conversion Note - Lc Armendarzi MD - 11/05/2018 9:00 AM EDT Patient: DOTTIE VILLASENOR Age: 78 years Sex: Male : 1940 Associated Diagnoses: None Author: LC ARMENDARIZ [facility] Basic Information PCP: Sanjuana Valdez Cardiology; Porfirio [...] All Problems Prostate stricture / SNOMED CT 71266396 / Confirmed HTN - Hypertension / SNOMED CT 3289557148 / Confirmed Hypothyroidism / SNOMED CT 61033273 / Confirmed Aneurysm / SNOMED CT 4667083507 / Confirmed Disorder of prostate / SNOMED CT 34330507 / Confirmed Thyroid disease / SNOMED CT 853312052 / Confirmed Restless legs syndrome / SNOMED CT 11588988 / Confirmed Cancer of skin of face / SNOMED CT 6514079139 / Confirmed At risk for sleep apnea / IMO 43022495 / Confirmed Resolved: Bladder stone / SNOMED CT 514947070 Histories No education data available. Social & Psychosocial Habits Alcohol 04/16/2017 Alcohol Use History, Social Habits No Alcohol Use in Last Twelve Months No Substance Abuse 04/16/2017 Recreational Drug Use History No Recreational Drug Use Last 12 Months No Tobacco 04/16/2017 Smoking Status Never smoker Past Medical History: Active HTN - Hypertension (4129054209) Hypothyroidism (85016660) Family History: Entire family history is negative. [...] of motion, Normal strength. Integumentary: Warm, Dry, [place]. Neurologic: Alert, Oriented. Psychiatric: Cooperative. Review / [...]
--- OUTSIDE RECORDS SUMMARY | 2025-04-28 11:14 | XMS_ITS | Encounter Summary ---
Author Organization [employer] ([place], [place], [place], [place]) Address [address] [place] [address] Care Team Providers Care Production Control Expert Name Role Phone Unavailable Primary Care Provider Unavailabl e Encounter Details Date Type Department Care Team (Late st Contact Info) Description 11/26/2018 Transcribed Document [facility] Family Medicine [address] [place] [address] ProviderErika MD [address] [place] [address] Social History Tobacco Use Types [...] (not seen on 11/25/18) followed up with [facility] today regarding possible admission - plan is [...] Care Management Note Report : LUCIE, ODALYS, Rn-Collar Tacker - 11/24/18 13:22:19 11/24/18 Andra from [facility] called to let me know they started a precert on this pt. CF ODALYS FAULKNER, Rn-Collar Tacker - 11/22/18 13:56:32 11/22/18 Pt has had a cva. Spoke to his Connie and son Sumeet at the bedside. Pt is lfacid on the left side. Discussed the need for STR and they decided on [facility]. Sent pt info via Vericept to [facility]. CF Documentation Status Complete : Yes ANGELA NAIR, Elementary Teacher - 11/26/2018 11:16 EDT Electronically signed by Parveen [facility] Conversion Manager Policy Cerner at 12/08/2022 12:12 PM CDT documented in this encounter Plan of Treatment Not on file documented as of this encounter Visit Diagnoses Not on filedocumented in this encounter
--- OUTSIDE RECORDS SUMMARY | 2025-04-28 11:14 | XMS_ITS | Encounter Summary ---
Author Organization [employer] ([place], [place], [place], [place]) Address [address] [place] [address] Care Team Providers Care Supplier Quality Engineering Manager Name Role Phone Unavailable Primary Care Provider Unavailabl e Encounter Details Date Type Department Care Team (Late st Contact Info) Description 11/26/2018 Transcribed Document [facility] [place] Family Medicine [address] [place] [address] ProviderErika MD [address] [place] [address] Social History Tobacco Use Types [...] On: 11/26/2018 9:15 EDT by JOSSUE RODRÍGUEZ REGISTERED SAFETY ENGINEER General Information Visit Type, REGISTERED SAFETY ENGINEER : Re-Evaluation Patient Orders : REGISTERED SAFETY ENGINEER Fxoliver Limitation Documentation x 1 -111 Start: 11/25/18 10:29:25 EDT - SYSTEM, SYSTEM Speech Language Pathology Modified Barium Swallow Study - Start: 11/26/18 7:00:00 EDT, Routine, For Other (see special instructions), Dysphagia -111 GISSEL ZHANG PA REGISTERED SAFETY ENGINEER Fxnl Limitation Documentation - Start: 11/20/18 9:37:47 EDT, Continuous Order -111 SYSTEM, SYSTEM Speech Language Pathology Additional Tx - Start: 11/20/18 9:36:00 EDT, For Dysphagia, Continuous Order -111 Admission Date : Admission Date/Time: 11/16/18 06:45:00 Medical Chart Reviewed, REGISTERED SAFETY ENGINEER : Yes Personal Devices : Personal Devices No Devices Recorded Assistive Devices : Assistive Devices No Devices Recorded Active Diagnoses : 11/23/2018 00:00 Cerebral infarction, unspecified 11/17/2018 00:00 Atherosclerotic heart disease of [place] coronary artery without angina pectoris 11/17/2018 00:00 Essential (primary) hypertension 11/17/2018 00:00 Hypothyroidism, unspecified 11/17/2018 00:00 Nonrheumatic aortic (valve) insufficiency 11/17/2018 00:00 Restless legs syndrome 11/17/2018 00:00 Thoracic aortic aneurysm, without rupture 11/17/2018 00:00 Thrombocytopenia, unspecified 11/16/2018 00:00 Atherosclerotic heart disease of [place] coronary artery without angina pectoris 11/16/2018 00:00 Nonrheumatic aortic (valve) insufficiency 11/16/2018 00:00 Thoracic aortic aneurysm, without rupture Therapy Diagnosis, REGISTERED SAFETY ENGINEER : functional oropharyngeal skills Previous Speech/Language Evaluations : N/A Previous Swallow Precautions : Bedside 11/20 recommended instrumental prior to initiating PO diet, FEES recommended reg/nectar. Pt has participated in tx and is ready for a repeat study Previous Cognitive Evaluations : this admit Diet/Intake Prior to Current Admission : Regular/thin Diet/Intake During Current Admission : reg/thin following MBS Intubation Comment, REGISTERED SAFETY ENGINEER : 11/16-11/17 Vital Signs RTF : [...] 9:15 EDT General Status Patient Received Status, REGISTERED SAFETY ENGINEER : Up in chair Patient Left Status, REGISTERED SAFETY ENGINEER : Up in chair JOSSUE RODRÍGUEZ SLP [...] Consistencies Trialed MB/VFSS : Thin by straw, [place] by straw, Pudding JOSSUE RODRÍGUEZ, ERIC - 11/26/2018 9:15 EDT Swallow Impressions Impressions, MBSS/VFSS : Functional swallow for oral intake JOSSUE RODRÍGUEZ SLP - 11/26/2018 9:15 EDT 8 Point Penetration/Aspiration Grid Thin by Straw : 1 [place] by Straw : 1 Pudding : 1 [...] Discussed briefly with CTS PA. JOSSUE RODRÍGUEZ, REGISTERED SAFETY ENGINEER - 11/26/2018 9:15 EDT Swallow Recommendations Recommended Diet Type, SwRec : Regular Recommended Liquid Diet, SwRec : Thin Swallow Position, SwRec : Upright 90 degrees Supervision Level w/Meals, SwRec : Independent, modified Recommended Med Present, SwRec : As per nursing JOSSUE RODRÍGUEZ SLP - 11/26/2018 9:15 EDT Therapy Indication Assessment REGISTERED SAFETY ENGINEER Indicated : No REGISTERED SAFETY ENGINEER Not Indicated : At prior level of function JOSSUE RODRÍGUEZ SLP - 11/26/2018 9:15 EDT Swallow Plan/Goals Swallow LTG Grid REGISTERED SAFETY ENGINEER Senior Living Goal #1 REGISTERED SAFETY ENGINEER Senior Living Goal #2 Swallow LTG : Establish safe [...] JOSSUE RODRÍGUEZ SLP - 11/26/2018 9:15 EDT REGISTERED SAFETY ENGINEER Education Assessment Grid 1 Aspiration : Needs further teaching Diet Recommendation : Needs further teaching JOSSUE RODRÍGUEZ SLP - 11/26/2018 9:[address] [facility] REGISTERED SAFETY ENGINEER Charges Modified Barium Swallow : 1 JOSSUE RODRÍGUEZ SLP - 11/26/2018 9:15 EDT Electronically signed by Christina Saini Conversion Account Classification Clerk Cerner at 12/08/2022 12:34 PM CDT documented in this encounter Plan of Treatment Not on file documented as of this encounter Visit Diagnoses Not on filedocumented in this encounter
--- OUTSIDE RECORDS SUMMARY | 2025-04-28 11:14 | XMS_ITS | Encounter Summary ---
Author Organization [employer] ([place], [place], [place], [place]) Address [address] [place] [address] Care Team Providers Care Gas Plant Dispatcher Name Role Phone Unavailable Primary Care Provider Unavailabl e Encounter Details Date Type Department Care Team (Late st Contact Info) Description 11/19/2018 Transcribed Document [facility] Cardiology [address] [place] [address] Lc Armendariz MD [address] [facility] [address] [place] [address] Social History Tobacco Use Types [...] mg, Oral, At Bedtime saliva substitutes: 1 [place], Buccal, Q2H, PRN: Other (See Comment) sodium [...] of motion, Normal strength. Integumentary: Warm, Dry, [place]. Neurologic: Alert, Oriented. Psychiatric: Cooperative, Appropriate mood & affect. Results Review NOV 19 04:08 138 105 21 / H 184 4.0 28 0.70 \ NOV 19 04:08 \ L 10.0 / H 15.0 L 101 / L 30.3 \ Radiology Results (Last 48 hours) [id number] -- 11/16/2018 06:45 CR Chest 1 Vw [...]
--- OUTSIDE RECORDS SUMMARY | 2025-04-28 11:14 | XMS_ITS | Encounter Summary ---
Author Organization [employer] ([place], [place], [place], [place]) Address [address] [place] [address] Care Team Providers Care Radioactive Waste Disposal Dispatcher Name Role Phone Unavailable Primary Care Provider Unavailabl e Encounter Details Date Type Department Care Team (Late st Contact Info) Description 11/19/2018 Transcribed Document [facility] Family Medicine [address] [place] [address] ProviderErika MD [address] [place] [address] Social History Tobacco Use [...] TF regimen to add fiber. EST NEEDS: 3552-3055 kcal (25-30kcal/kg), 95g pro (1.2g/kg) 1. Change TF to Jevity 1.5 @ 60 ml/hr + 1 bottle [id number] daily (Provides 2040 kcal; 99 gm pro) Goal: meet est needs 2. Monitor alertness and appropriateness for HOSIERY OPERATOR eval Goal: est safe po diet 3. Weigh pt 2x weekly Goal: no sig weight changes High Risk [address]ION [address], LD - 11/19/2018 12:43 EDT Electronically signed by Parveen, [facility] Conversion Nurse Substance Abuse Cerner at 12/08/2022 12:18 PM CDT documented in this encounter Plan of Treatment Not on file documented as of this encounter Visit Diagnoses Not on filedocumented in this encounter
== END 2025-04-27 23:59 ==
LOC: LAB.DROPOF 04-28 11:05
PROVIDERS: PCP Internal Medicine; Visit Provider Internal Medicine
DX: N39.0 Urinary tract infection, site not specified (principal)
CPT/HCPCS: 87086; 87088

== ENCOUNTER 2025-05-04 13:38 | Outpatient (RCR) | payer MEDICARE, SELFPAY ==
[2025-05-04] MEDS: ERTAPENEM SODIUM 1 GM VIAL IM (14:09)
[2025-05-04 14:15] VITALS: BP 168/85; PULSE 95; RESP 18; O2SAT 98
[2025-05-04 14:43] LABS: Chloride 104 mmol/L (98-107)
[2025-05-04 14:44] LABS: Potassium 3.9 mmoL/L (3.5-5.1); Sodium 138 mmol/L (136-145)
[2025-05-04 14:46] LABS: Blood Urea Nitrogen 17 mg/dl (9-20); Creatinine,Serum 0.90 mg/dl (0.66-1.25); Estimated Glomerular Filt Rate 80 ml/min (>60); GFR (African American) 97 ML/MIN (>60)
[2025-05-04 14:47] LABS: Anion Gap 9.9 mEq/L (5-15); Calcium 8.8 mg/dl (8.4-10.2); Carbon Dioxide 28 mmol/L (22.0-30.0); Glucose 102 mg/dl (74-100)
== END 2025-05-04 14:30 ==
LOC: INF 13:38
PROVIDERS: PCP Internal Medicine; Visit Provider Internal Medicine
DX: N39.0 Urinary tract infection, site not specified (principal); B96.20 Unspecified Escherichia coli [E. coli] as the cause of diseases classified elsewhere; Z16.12 Extended spectrum beta lactamase (ESBL) resistance
CPT/HCPCS: 36415; 80048; 96372; J1335

== ENCOUNTER 2025-05-08 12:52 | Outpatient (CLI) | payer MEDICARE, SELFPAY ==
--- OUTSIDE RECORDS SUMMARY | 2025-05-08 12:55 | XMS_ITS | Encounter Summary ---
Author Organization [employer] ([place], [place], [place], [place]) Address [address] [place] [address] Care Team Providers Care Slitter Cut Off Operator Name Role Phone Unavailable Primary Care Provider Unavailabl e Encounter Details Date Type Department Care Team (Late st Contact Info) Description 11/22/2018 Transcribed Document [facility] [address] [place] [address] ProviderErika MD [address] [place] [address] Social History Tobacco Use Types [...] EDT by LEONEL GUZMAN Chaplain General Information Restorationist Preference : [employer]eterian LEONEL GUZMAN Chaplain - 11/24/2018 2:35 EDT Spiritual Assessment Spiritual Assessment Comment/Summary Points : Prov. empathetic engaged listening: Pt. is [employer]ian, spouse & son visit pt. regularly, Spouse & Pt. in their late teens. Pt. enjoys reminiscing and story telling, Pt. looking forward to [facility] rehab noting he wants/needs to work hard, [...]
--- OUTSIDE RECORDS SUMMARY | 2025-05-08 12:55 | XMS_ITS | Encounter Summary ---
Author Organization [employer] ([place], [place], [place], [place]) Address [address] [place] [address] Care Team Providers Care Supervisor Lending Activities Name Role Phone Unavailable Primary Care Provider Unavailabl e Encounter Details Date Type Department Care Team (Late st Contact Info) Description 11/17/2018 Transcribed Document [facility] [place] [address] [place] [address] ProviderErika MD [address] [place] [address] Social History Tobacco Use Types [...] Source : Measured Height Entry Format : [place] Height, Feet : 6 ft Height, Inches : 1 Inch Clinical Height : 185.42 cm Body Surface Area (BSA), Routine : 2.06 m2 Body Mass Index (BMI), Routine : 23.73 kg/m2 Alpesh Barraza RN - 11/17/2018 7:37 EDT Electronically signed by Christina Saini Conversion Bag Filler Machine Operator Cerner at 12/08/2022 12:13 PM CDT documented in this encounter Plan of Treatment Not on file documented as of this encounter Visit Diagnoses Not on filedocumented in this encounter
--- OUTSIDE RECORDS SUMMARY | 2025-05-08 12:55 | XMS_ITS | Encounter Summary ---
Author Organization [employer] ([place], [place], [place], [place]) Address [address] [place] [address] Care Team Providers Care Material Control Clerk Name Role Phone Unavailable Primary Care Provider Unavailabl e Encounter Details Date Type Department Care Team (Late st Contact Info) Description 11/21/2018 Transcribed Document [facility] Family Medicine [address] [place] [address] ProviderErika MD [address] [place] [address] Social History Tobacco Use [...] Source : Measured Height Entry Format : [place] Height, Feet : 6 ft Height, Inches [...]
--- OUTSIDE RECORDS SUMMARY | 2025-05-08 12:55 | XMS_ITS | Encounter Summary ---
Author Organization [employer] ([place], [place], [place], [place]) Address [address] [place] [address] Care Team Providers Care Fourdrinier Machine Operator Name Role Phone Unavailable Primary Care Provider Unavailabl e Encounter Details Date Type Department Care Team (Late st Contact Info) Description 11/17/2018 Transcribed Document [facility] [place] Family Medicine [address] [place] [address] ProviderErika MD [address] [place] [address] Social History Tobacco Use Types Packs/Day Years Used Date Smoking Tobacco: Never Assessed Sex and Gender Information Value Date Recorded Sex Assigned at Not on file Legal Sex Male 5:03 PM CDT Gender Identity Not on file Sexual Orientation Not on file documented as of this encounter Miscellaneous Notes * Cerner Conversion Note - Historical ProviderMD - 11/17/2018 2:00 AM CDT Ship Rigger Apprentice Details Entered On: 11/17/2018 7:39 EDT Performed [...]
--- OUTSIDE RECORDS SUMMARY | 2025-05-08 12:55 | XMS_ITS | Encounter Summary ---
Author Organization [employer] ([place], [place], [place], [place]) Address [address] [place] [address] Care Team Providers Care Papier Mache' Molder Name Role Phone Unavailable Primary Care Provider Unavailabl e Encounter Details Date Type Department Care Team (Late st Contact Info) Description 11/17/2018 Transcribed Document [facility] [place] Family Medicine [address] [place] [address] ProviderErika MD [address] [place] [address] Social History Tobacco Use Types [...] On: 11/17/2018 11:22 EDT by ODALYS FAULKNER Rn-Java LeadTmr Teacher Note Documentation Status Complete : Yes ODALYS FAULKNER Rn-Java Lead - 11/17/2018 11:22 EDT Patient History Information [...] when pt is awake. CF ODALYS FAULKNER, Rn-Java Lead - 11/17/2018 11:22 EDT documented in this encounter Plan of Treatment Not on file documented as of this encounter Visit Diagnoses Not on filedocumented in this encounter
--- OUTSIDE RECORDS SUMMARY | 2025-05-08 12:55 | XMS_ITS | Encounter Summary ---
Author Organization [employer] ([place], [place], [place], [place]) Address [address] [place] [address] Care Team Providers Care Band Sawmill Operator Name Role Phone Unavailable Primary Care Provider Unavailabl e Encounter Details Date Type Department Care Team (Late st Contact Info) Description 11/22/2018 Transcribed Document [facility] [place] Family Medicine [address] [place] [address] ProviderErika MD [address] [place] [address] Social History Tobacco Use [...] On: 11/22/2018 9:23 EDT by JOSSUE RODRÍGUEZ PAINT STOCKMAN General Information Visit Type, PAINT STOCKMAN : Re-Evaluation Patient Orders : PAINT STOCKMAN Fxnl Limitation Documentation x 1 -111 Start: 11/22/18 8:22:14 EDT - SYSTEM, SYSTEM FEES - Start: 11/22/18 8:21:00 EDT, Routine, For Swallow Eval and Treat -111 MARIEL ROBLES PA PAINT STOCKMAN Fxnl Limitation Documentation - Start: 11/20/18 9:37:47 EDT, Continuous Order -111 SYSTEM, SYSTEM Speech Language Pathology Additional Tx - Start: 11/20/18 9:36:00 EDT, For Dysphagia, Continuous Order -111 Admission Date : Admission Date/Time: 11/16/18 06:45:00 Medical Chart Reviewed, PAINT STOCKMAN : Yes Personal Devices : Personal Devices No Devices Recorded Assistive Devices : Assistive Devices No Devices Recorded Active Diagnoses : 11/17/2018 00:00 Atherosclerotic heart disease of [place] coronary artery without angina pectoris 11/17/2018 00:00 Essential (primary) hypertension 11/17/2018 00:00 Hypothyroidism, unspecified 11/17/2018 00:00 Nonrheumatic aortic (valve) insufficiency 11/17/2018 00:00 Restless legs syndrome 11/17/2018 00:00 Thoracic aortic aneurysm, without rupture 11/17/2018 00:00 Thrombocytopenia, unspecified 11/16/2018 00:00 Atherosclerotic heart disease of [place] coronary artery without angina pectoris 11/16/2018 00:00 Nonrheumatic aortic (valve) insufficiency 11/16/2018 00:00 Thoracic aortic aneurysm, without rupture Therapy Diagnosis, PAINT STOCKMAN : normal oral skills, moderate pharyngeal dysphagia Previous Speech/Language Evaluations : N/A Previous Swallow Precautions : Bedside 11/20 recommended instrumental prior to initiating PO diet Previous Cognitive Evaluations : N/A Diet/Intake Prior to Current Admission : Regular/thin Diet/Intake During Current Admission : NPO with TF via [place] Gag Reflex Intact : Yes Intubation Comment, PAINT STOCKMAN : 11/16-11/17 Vital Signs RTF : Vitals [...] 9:23 EDT General Status Patient Received Status, PAINT STOCKMAN : Long sitting in bed Patient Left Status, PAINT STOCKMAN : Long sitting in bed JOSSUE RODRÍGUEZ [...] Consistencies Trialed FEES : Thin by straw, [place] by straw, Pureed, Regular solids JOSSUE RODRÍGUEZ SLP - 11/22/2018 9:23 EDT Swallow Impressions Impressions, FEES : Pharyngeal dysphagia JOSSUE RODRÍGUEZ SLP - 11/22/2018 9:23 EDT 8 Point Penetration/Aspiration Grid Thin by Straw : 8 [place] by Straw : 1 Pureed : 1 [...] : Regular Recommended Liquid Diet, SwRec : [place] Feeding Presentation Style, SwRec : No restrictions Swallow Position, SwRec : Upright 90 degrees Supervision Level w/Meals, SwRec : Assist, standby Recommended Med Present, SwRec : Crushed, Whole, With nectar, With puree/pudding, No medications with water Recommended Exam, Sw Rec : FEES Repeat Swallow Exam Timeframe : 3-6 days JOSSUE RODRÍGUEZ SLP - 11/22/2018 9:34 EDT Therapy Indication Assessment PAINT STOCKMAN Indicated : Yes PAINT STOCKMAN Problem List : Impaired, Swallowing JOSSUE RODRÍGUEZ SLP - 11/22/2018 9:34 EDT Swallow Plan/Goals Treatment Frequency, PAINT STOCKMAN : 5 times per wk Treatment Plan Est w/Pt/Caregvr, Swallow : Yes JOSSUE RODRÍGUEZ SLP - 11/22/2018 9:34 EDT Swallow LTG Grid PAINT STOCKMAN Celery Stripper Goal #1 PAINT STOCKMAN Residential Goal #2 Swallow LTG : Establish safe oral diet without aspiration Improve swallowing function for oral intake Status : Goal met Initial Date Met : 11/22/2018 EDT JOSSUE RODRÍGUZE SLP - 11/22/2018 9:34 EDT JOSSUE RODRÍGUEZ [...] JOSSUE RODRÍGUEZ SLP - 11/22/2018 9:34 EDT PAINT STOCKMAN Education Assessment Grid 1 Aspiration : Needs further teaching Diet Recommendation : Needs further teaching Dysphagia : Needs further teaching Free Water Protocol : Needs further teaching Ice Chips : Needs further teaching Oral Care : Needs further teaching JOSSUE RODRÍGUEZ SLP - 11/22/2018 9:34 EDT PAINT STOCKMAN Education Assessment Grid 2 Speech Language Pathology Treatment Plan : Needs further teaching JOSSUE RODRÍGUEZ SLP - 11/22/2018 9:[address] [facility] PAINT STOCKMAN Charges FEES : 1 JOSSUE RODRÍGUEZ SLP - 11/22/2018 9:34 EDT documented in this encounter Plan of Treatment Not on file documented as of this encounter Visit Diagnoses Not on filedocumented in this encounter
--- OUTSIDE RECORDS SUMMARY | 2025-05-08 12:55 | XMS_ITS | Encounter Summary ---
Author Organization [employer] ([place], [place], [place], [place]) Address [address] [place] [address] Care Team Providers Care Dress Designer Name Role Phone Unavailable Primary Care Provider Unavailabl e Encounter Details Date Type Department Care Team (Late st Contact Info) Description 11/22/2018 Transcribed Document [facility] [place] [address] [place] [address] ProviderErika MD [address] [place] [address] Social History Tobacco Use [...] On: 11/22/2018 13:55 EDT by ODALYS FAULKNER Rn-Calibration EngineerCharge Entry Note Care Management Note : 11/22/18 Pt has had a cva. Spoke to his Connie and son Sumeet at the bedside. Pt is lfacid on the left side. Discussed the need for STR and they decided on [facility]. Sent pt info via [facility] to [facility]. CF Documentation Status Complete : Yes ODALYS FAULKNER Rn-Calibration Engineer - 11/22/2018 13:55 EDT Patient History Emergency Contact #1 : Connie Emergency Contact #1 (H) Emergency Contact #1 Relationship : Emergency Contact #2 : Sheridan Fernando Emergency Contact #2 (C) Emergency Contact #2 Relationship : daughter Living Situation : Home Patient Lives With : Spouse Current Home Treatments : None Patient History Note Report : ODALYS FAULKNER Rn-Calibration Engineer - 11/17/18 11:25:13 11/17/18 Pt sleeping and [...] when pt is awake. CF ODALYS FAULKNER Rn-Calibration Engineer - 11/22/2018 13:55 EDT Electronically signed by [facility], [facility] Conversion Business Analyst Sales Operations Cerner at 12/08/2022 12:32 PM CDT documented in this encounter Plan of Treatment Not on file documented as of this encounter Visit Diagnoses Not on filedocumented in this encounter
--- OUTSIDE RECORDS SUMMARY | 2025-05-08 12:55 | XMS_ITS | Encounter Summary ---
Author Organization [employer] ([place], [place], [place], [place]) Address [address] [place] [address] Care Team Providers Care Teletype Clerk Name Role Phone Unavailable Primary Care Provider Unavailabl e Encounter Details Date Type Department Care Team (Late st Contact Info) Description 11/21/2018 Transcribed Document [facility] [place] Family Medicine [address] [place] [address] ProviderErika MD [address] [place] [address] Social History Tobacco Use Types Packs/Day Years Used Date Smoking Tobacco: Never Assessed Sex and Gender Information Value Date Recorded Sex Assigned at Not on file Legal Sex Male 5:03 PM CDT Gender Identity Not on file Sexual Orientation Not on file documented as of this encounter Miscellaneous Notes * Cerner Conversion Note - Historical ProviderMD - 11/21/2018 2:00 AM CDT Master Technician Details Entered On: 11/21/2018 1:40 EDT Performed [...]
--- OUTSIDE RECORDS SUMMARY | 2025-05-08 12:55 | XMS_ITS | Encounter Summary ---
Author Organization [employer] ([place], [place], [place], [place]) Address [address] [place] [address] Care Team Providers Care Artist Suspect Name Role Phone Unavailable Primary Care Provider Unavailabl e Encounter Details Date Type Department Care Team (Late st Contact Info) Description 11/17/2018 Transcribed Document [facility] Cardiology [address] [place] [address] Lc Armendariz MD [address] [facility] [address] [place] [address] Social History Tobacco Use Types [...] MD-CAR Basic Information PCP: Sanjuana Espino MD Cabin Service Agent: Porfirio Combs MD Chief Complaint s/p bioprosthetic [...] list: All Problems Aneurysm, thoracic aortic / 0635755355 / Confirmed Aortic valve insufficiency / 773958084 / Confirmed Arthritis / 9392373 / Confirmed At risk for sleep apnea / 44359164 / Confirmed CAD (coronary artery disease) / 13267267 / Confirmed Disorder of prostate ( enlarged) / 08031461 / Confirmed HTN - Hypertension / 8659906713 / Confirmed Hypothyroidism / 21422177 / Confirmed Frequent urination / 314857868 / Confirmed Cancer of skin of face / 3330078736 / Confirmed Nocturia / 596069580 / Confirmed Restless legs syndrome / 78271613 / Confirmed Prostate stricture / 86325896 / Confirmed Resolved: Bladder stone / 393319465 Canceled: Aneurysm / 2633379419 Canceled: Thyroid disease / 374811633 Histories No education data available. Social & Psychosocial Habits Alcohol 04/16/2017 Alcohol Use History, Social Habits No Alcohol Use in Last Twelve Months No Home/Environment 11/15/2018 Lives with: Spouse Living situation: Home/Independent Substance Abuse 04/16/2017 Recreational Drug Use History No Recreational Drug Use Last 12 Months No Tobacco 04/16/2017 Smoking Status Never smoker Past Medical History: Active HTN - Hypertension (2473756012) Hypothyroidism (80524408) Family History: Entire family history is negative. [...] No tenderness, No swelling. Integumentary: Warm, Dry, [place]. Neurologic: Not alert, Not oriented. Psychiatric: not [...] 11/17/2018 05:17 Radiology Results (Last 48 hours) [id number] -- 11/16/2018 06:45 CR Chest 2 Vws [...] Anasogastric tube extends below the diaphragm. Left-sided Hills-Ganzcatheter tip is in the left main pulmonary [...] day.FINDINGS: The heart is normal in size. Hills-Jovanna catheter tips in theleft pulmonary artery. There [...]
--- OUTSIDE RECORDS SUMMARY | 2025-05-08 12:55 | XMS_ITS | Encounter Summary ---
Author Organization [employer] ([place], [place], [place], [place]) Address [address] [place] [address] Care Team Providers Care Security Orderly Name Role Phone Unavailable Primary Care Provider Unavailabl e Encounter Details Date Type Department Care Team (Late st Contact Info) Description 11/22/2018 Transcribed Document [facility] [place] [address] [place] [address] ProviderErika MD [address] [place] [address] Social History Tobacco Use Types [...] Source : Measured Height Entry Format : [place] Height, Feet : 6 ft Height, Inches : 1 Inch Clinical Height : 185.42 cm Amanda Sigala RN - 11/22/2018 6:08 EDT Amanda Sigala RN - 11/22/2018 6:15 EDT Electronically signed by Christina Saini Conversion Operations Systems Specialist Cerner at 12/08/2022 12:34 PM CDT documented in this encounter Plan of Treatment Not on file documented as of this encounter Visit Diagnoses Not on filedocumented in this encounter
--- OUTSIDE RECORDS SUMMARY | 2025-05-08 12:55 | XMS_ITS | Encounter Summary ---
Author Organization [employer] ([place], [place], [place], [place]) Address [address] [place] [address] Care Team Providers Care Development Advisor Name Role Phone Unavailable Primary Care Provider Unavailabl e Encounter Details Date Type Department Care Team (Late st Contact Info) Description 11/21/2018 Transcribed Document [facility] [place] [address] [place] [address] ProviderErika MD [address] [place] [address] Social History Tobacco Use [...] MRI to confirm. -continue asa, statin -Continue PT/OT/TACTICAL RESPONSE GROUP OFFICER -control blood pressure, aim for whatever is [...] Tab, Oral, At Bedtime saliva substitutes, 1 [place], Buccal, Q2H, PRN Senokot, 17.2 mg= 2 [...]
--- OUTSIDE RECORDS SUMMARY | 2025-05-08 12:55 | XMS_ITS | Encounter Summary ---
Author Organization [employer] ([place], [place], [place], [place]) Address [address] [place] [address] Care Team Providers Care Talent Associate Name Role Phone Unavailable Primary Care Provider Unavailabl e Encounter Details Date Type Department Care Team (Late st Contact Info) Description 11/21/2018 Transcribed Document [facility] [place] [address] [place] [address] ProviderErika MD [address] [place], [place] [id number] Social History Tobacco Use Types Packs/Day Years [...] Bedtime, Routine HEENT saliva substitutes - 1 [place], Buccal, Liquid, Q2H, PRN for Other (See [...] Radiology results Radiology Results (Last 48 hours) [id number] -- 11/16/2018 06:45 CR Chest 1 Vw Portable (11/20/2018 04:12) Result: PORTABLE CHEST 11/20/2018 4:00 AMHISTORY: Shortness of breathCOMPARISON: 1 day priorFINDINGS: A [place]-Jovanna catheter tip terminates in the SVC. The Marquette-Ganzcatheter has been retracted. The cardiac silhouette is [...]
--- OUTSIDE RECORDS SUMMARY | 2025-05-08 12:56 | XMS_ITS | Encounter Summary ---
Author Organization [employer] ([place], [place], [place], [place]) Address [address] [place] [address] Care Team Providers Care Manager Requirements Name Role Phone Unavailable Primary Care Provider Unavailabl e Encounter Details Date Type Department Care Team (Late st Contact Info) Description 11/30/2018 Transcribed Document [facility] [place] [address] [place] [address] ProviderErika MD [address] [place], [place] [phone] Social History Tobacco Use Types Packs/Day Years [...] 1940 Associated Diagnoses: CAD (coronary artery disease), [place] coronary artery; Thrombocytopenia; Coronary artery disease; HTN [...] Non-distended, Normal bowel sounds. Integumentary: Warm, Dry, [place], incision is C/D/I. Neurologic: Alert, left sided [...] (Current Encounter/Past 24 Hours) PT 27.4 Second(s) FL 11/30/2018 07:23 INR 2.6 FL 11/30/2018 07:23 . Impression and Plan Plan: [...] of discharge- CM has sent information to [facility] -Transfer to [facility] 11/24/18 -POD#8 -Awaiting transfer to [facility] -Awaiting response from [facility] 11/25/18 -POD#9 -left upper extremity venous doppler - doppler this am positive for LUE DVT - will start coumadin and heparin bridge -awaiting [facility] 11/26/18 -POD#10 -Heparin drip and coumadin for LUE DVT -Left arm swelling improved today -INR 1.1 today, INR goal 2-3 -Possibly transfer to [facility] this weekend 11/27/18: -POD#11 -Left arm swelling continues to improve -Continues on Coumadin and heparin bridge -INR: 1.4 (1.1 yesterday) goal: 2 to 3 -[facility] soon,? Tomorrow 11/28/18: -POD#12 -BP in 70s-80s this AM -He had a dark black stool and has had a couple of fluid boluses -Heparin was D/C'd and his INR is 2.0 this AM (on coumadin 5mg qd) -Hct is down to 23.6 -GI med has been consulted and he is to undergo EGD -Also some blood has been set up. -Transferred to [facility] 11/29/18: -POD#13 -Upper endoscopy showed [...] D/C due to GI bleed. -Transfer to [facility] 11/30/18 POD # 14 EGD yesterday - duodenal ulceration with clot, no active bleeding and no intervention performed INR trending down, off coumadin and heparin Speech signed off yesterday - speech and cognition back to baseline Watch INR and [facility] upon discharge EF 55-60% per echo 11/16/18 DVT Prophylaxis: SCDs Diagnosis CAD (coronary artery disease), [place] coronary artery - Admitting, Medical. Thrombocytopenia - [...] - Discharge, Medical. Electronically signed by Interface, [facility] Conversion Line Assigner Cerner at 12/08/2022 12:34 PM CDT documented in this encounter Plan of Treatment Not on file documented as of this encounter Visit Diagnoses Not on filedocumented in this encounter
--- OUTSIDE RECORDS SUMMARY | 2025-05-08 12:56 | XMS_ITS | Encounter Summary ---
Author Organization [employer] ([place], [place], [place], [place]) Address [address] [place] [address] Care Team Providers Care Director Of Sustainability Name Role Phone Unavailable Primary Care Provider Unavailabl e Encounter Details Date Type Department Care Team (Late st Contact Info) Description 11/17/2018 Transcribed Document [facility] [place] Medicine [address] [place] [address] ProviderErika MD [address] [place] [address] Social History Tobacco Use Types [...]
--- OUTSIDE RECORDS SUMMARY | 2025-05-08 12:56 | XMS_ITS | Encounter Summary ---
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 Respiratory Assessment Comment : Nasal cannula MAMTA SOLO, ERIC - 11/23/2018 14:12 EDT Visit Type, AIRCRAFT PAINTER : Initial evaluation Patient Orders : Speech Language Pathology Evaluation and Treatment -111 Start: 11/22/18 11:18:00 EDT, Routine, For Speech Language Cognitive Eval and Treat - JAY JAY CRESPO MD-DIANE AIRCRAFT PAINTER Fxnl Limitation Documentation - Start: 11/20/18 9:37:47 EDT, Continuous Order -111 SYSTEM, SYSTEM Speech Language Pathology Additional Tx - Start: 11/20/18 9:36:00 EDT, For Dysphagia, Continuous Order -111 Admission Date : Admission Date/Time: 11/16/18 06:45:00 Medical Chart Reviewed, AIRCRAFT PAINTER : Yes Personal Devices : Personal Devices No Devices Recorded Assistive Devices : Assistive Devices No Devices Recorded Active Diagnoses : 11/23/2018 00:00 Cerebral infarction, unspecified 11/17/2018 00:00 Atherosclerotic heart disease of [place] coronary artery without angina pectoris 11/17/2018 00:00 Essential (primary) hypertension 11/17/2018 00:00 Hypothyroidism, unspecified 11/17/2018 00:00 Nonrheumatic aortic (valve) insufficiency 11/17/2018 00:00 Restless legs syndrome 11/17/2018 00:00 Thoracic aortic aneurysm, without rupture 11/17/2018 00:00 Thrombocytopenia, unspecified 11/16/2018 00:00 Atherosclerotic heart disease of [place] coronary artery without angina pectoris 11/16/2018 00:00 [...] Gag Reflex Intact : Yes Intubation Comment, AIRCRAFT PAINTER : 11/16-11/17 Vital Signs RTF : [...] 13:41 EDT General Status Patient Received Status, AIRCRAFT PAINTER : Supine in bed Patient Left Status, AIRCRAFT PAINTER : Supine in bed MAMTA SOLO SLP [...] Oral Mechanism for Daily Living : Intact AIRCRAFT PAINTER Cough : Weak MAMTA SOLO SLP - [...] (Comment: Reading impacted by L neglect [MAMTA SLOO SLP - 11/23/2018 14:12 EDT] ) MAMTA SOLO SLP - 11/23/2018 14:12 EDT Written Expression Writing for Daily Living : Impaired, Could not complete assessment (Comment: Pt is L hand dominant per pt report. LUE paralysis noted. [AMMTA SOLO SLP - 11/23/2018 14:12 EDT] ) [...] 14:12 EDT Evaluation Methods Types of Evaluation, AIRCRAFT PAINTER : Informal MAMTA SOLO SLP - 11/23/2018 14:12 EDT [facility] Impressions Impressions, Speech/Lang/Cog : Other: Mixed expressive/receptive communication impairment [facility] Overall Impressions : Communication evaluation completed [...] - 11/23/2018 14:12 EDT Therapy Indication Assessment AIRCRAFT PAINTER Indicated : Yes AIRCRAFT PAINTER Interdisciplinary Consultation Needs : No AIRCRAFT PAINTER Problem List : Impaired, Spoken Language Comprehension, Impaired, Spoken Language Expression MAMTA SOLO SLP - 11/23/2018 14:12 EDT LTG Lang/Comm/Cog LTG AIRCRAFT PAINTER Detention Goal 1 Detention Goal 2 Goals : Improved spoken language [...] MAMTA SOLO SLP - 11/23/2018 14:12 EDT AIRCRAFT PAINTER Education Assessment Grid 1 Evaluation Results : Verbalizes understanding MAMTA SOLO SLP - 11/23/2018 14:12 EDT AIRCRAFT PAINTER Education Assessment Grid 2 Treatment Plan : Verbalizes understanding MAMTA SOLO SLP - 11/23/2018 14:[address] [facility] Evaluation of Speech Production & Language : 1 MAMTA SOLO SLP - 11/23/2018 14:12 EDT Anticipated Discharge Needs, AIRCRAFT PAINTER Anticipated Discharge to OT : Rehab, high intensity Recommend Continued Therapy at Discharge : Yes MAMTA SOLO SLP - 11/23/2018 14:12 EDT documented in this encounter Plan of Treatment Not on file documented as of this encounter Visit Diagnoses Not on filedocumented in this encounter
--- OUTSIDE RECORDS SUMMARY | 2025-05-08 12:56 | XMS_ITS | Encounter Summary ---
Author Organization [employer] ([place], [place], [place], [place]) Address [address] [place] [address] Care Team Providers Care Him Analyst Name Role Phone Unavailable Primary Care Provider Unavailabl e Encounter Details Date Type Department Care Team (Late st Contact Info) Description 11/30/2018 Transcribed Document [facility] [place] Family Medicine [address] [place] [address] ProviderErika MD [address] [place] [address] Social History Tobacco Use Types [...]
--- OUTSIDE RECORDS SUMMARY | 2025-05-08 12:56 | XMS_ITS | Encounter Summary ---
Author Organization [employer] ([place], [place], [place], [place]) Address [address] [place] [address] Care Team Providers Care Clinical Ob Name Role Phone Unavailable Primary Care Provider Unavailabl e Encounter Details Date Type Department Care Team (Late st Contact Info) Description 11/30/2018 Transcribed Document [facility] [place] Family Medicine [address] [place] [address] ProviderErika MD [address] [place] [address] Social History Tobacco Use Types [...]
--- OUTSIDE RECORDS SUMMARY | 2025-05-08 12:56 | XMS_ITS | Encounter Summary ---
Author Organization [employer] ([place], [place], [place], [place]) Address [address] [place] [address] Care Team Providers Care Slot Shift Supervisor Name Role Phone Unavailable Primary Care Provider Unavailabl e Encounter Details Date Type Department Care Team (Late st Contact Info) Description 11/30/2018 Transcribed Document [facility] [place] [address] [place] [address] ProviderErika MD [address] [place] [address] Social History Tobacco Use Types [...]
--- OUTSIDE RECORDS SUMMARY | 2025-05-08 12:56 | XMS_ITS | Encounter Summary ---
Author Organization [employer] ([place], [place], [place], [place]) Address [address] [place] [address] Care Team Providers Care Packing And Wrapping Supervisor Name Role Phone Unavailable Primary Care Provider Unavailabl e Encounter Details Date Type Department Care Team (Late st Contact Info) Description 11/29/2018 Transcribed Document [facility] [place] [address] [place] [address] ProviderErika MD [address] [place], [place] [phone] Social History Tobacco Use Types Packs/Day Years Used Date Smoking Tobacco: Never Assessed Sex and Gender Information Value Date Recorded Sex Assigned at Not on file Legal Sex Male 5:03 PM CDT Gender Identity Not on file Sexual Orientation Not on file documented as of this encounter Miscellaneous Notes * [employer] Conversion Note - Erika ProviderMD - 11/29/2018 1:37 PM CDT Discharge Summary, COMMISSIONING SPECIALIST Entered On: 11/29/2018 13:40 EDT Performed On: 11/29/2018 13:37 EDT by JOSSUE RODRÍGUEZ COMMISSIONING SPECIALIST Discharge Notation. COMMISSIONING SPECIALIST Dysphagia Treatment After Discharge : No Discharge Diet : Regular Discharge Liquids : Thin Discharge Summary Comment, COMMISSIONING SPECIALIST : Attempted to see pt for language [...] - 11/29/2018 13:37 EDT LTG Lang/Comm/Cog LTG COMMISSIONING SPECIALIST Detention Goal 1 Detention Goal 2 Goals : Improved spoken language expression at the time of discharge Improved auditory/spoken language comprehension at the time of discharge Status : Discontinue Discontinue JOSSUE RODRÍGUEZ SLP - 11/29/2018 13:37 EDT JOSSUE RODRÍGUEZ, [facility] - 11/29/2018 13:37 EDT STG Lang_Comm_Cog Motor Speech STG Grid Goal #1 Activity : Improve intelligibility of speech Status : Discontinue JOSSUE RODRÍGUEZ [facility] - 11/29/2018 13:37 EDT Auditory Comprehension Grid Goal #1 Goal #2 Activity : Follow directions, 3 step commands simple Comprehend paragraph complex Status : Discontinue Discontinue JOSSUE RODRÍGUEZ [facility] - 11/29/2018 13:37 EDT JOSSUE RODRÍGUEZ, [facility] - 11/29/2018 13:37 EDT Verbal Expression STG Grid Goal #1 Activity : Generate items in a category Status : Discontinue JOSSUE RODRÍGUEZ COMMISSIONING SPECIALIST - 11/29/2018 13:37 EDT Reading Comprehension STG Grid Goal #1 Activity : Visual perception deficits Status : Discontinue JOSSUE RODRÍGUEZ [facility] - 11/29/2018 13:37 EDT Attention STG Grid Goal #1 Activity : Other: Probe Status : Goal met Date Met : 11/24/2018 EDT JOSSUE RODRÍGUEZ [facility] - 11/29/2018 13:37 EDT Memory STG Grid Goal #1 Goal #2 Goal #3 Activity : Other: Probe Improve short term functional delayed Improve short term working memory Status : Goal met Discontinue Discontinue Date Met : 11/24/2018 EDT JOSSUE RODRÍGUEZ, [facility] - 11/29/2018 13:37 EDT JOSSUE RODRÍGUEZ, [facility] - 11/29/2018 13:37 EDT JOSSUE RODRÍGUEZ, [facility] - 11/29/2018 13:37 EDT Problem Solving STG Grid Goal #1 Goal #2 Goal #3 Goal #4 Activity : Generate a list of simple/concrete items Label items in a category, complex/abstract Other: Probe Improve simple problem solving Status : Discontinue Discontinue Goal met Discontinue Date Met : 11/24/2018 EDT JOSSUE RODRÍGUEZ, COMMISSIONING SPECIALIST - 11/29/2018 13:37 EDT JOSSUE RODRÍGUEZ, [facility] - 11/29/2018 13:37 EDT JOSSUE RODRÍGUEZ, [facility] - 11/29/2018 13:37 EDT JOSSUE RODRÍGUEZ, COMMISSIONING SPECIALIST - 11/29/2018 13:37 EDT Swallow Plan/Goals Swallow LTG Grid COMMISSIONING SPECIALIST Detention Goal #1 COMMISSIONING SPECIALIST Final Inspection Supervisor Goal #2 Swallow LTG : Establish safe [...]
--- OUTSIDE RECORDS SUMMARY | 2025-05-08 12:56 | XMS_ITS | Encounter Summary ---
Author Organization [employer] ([place], [place], [place], [place]) Address [address] [place] [address] Care Team Providers Care Peanut Shaker Name Role Phone Unavailable Primary Care Provider Unavailabl e Encounter Details Date Type Department Care Team (Late st Contact Info) Description 11/29/2018 Transcribed Document [facility] [place] [address] [place] [address] ProviderErika MD [address] [place] [address] Social History Tobacco Use Types [...] ProviderMD - 11/29/2018 2:51 PM CDT [facility] Endo PACU Summary Primary Physician: RIGOBERTO YU MD Finalized Date/Time: 11/29/18 15:36:07 Pt. Name: VILLASENOR DOTTIE Ladan /Sex: 1940 Male Med Rec #: [id number] Physician: JULIO CESAR CARVALHO MD-[facility] Financial #: [id number] Pt. Type: I Room/Bed: 330/1 Admit/Disch: 11/16/18 06:45:00 - Institution: [facility] Endo PACU Case Times Entry 1 In PACU I 11/29/18 15:10:00 Ready for PACU 11/29/18 15:35:00 Discharge Discharge from PACU 11/29/18 15:35:00 I Last Modified By: Destiney Mckenzie RN 11/29/18 15:35:51 [facility] Endo PACU Case Times Audit 11/29/18 15:35:51 Childcare Attendant: JAYOSETC Modifier: DEROSETC <+> 1 Ready for PACU Discharge <+> 1 Discharge from PACU I Finalized By: Destiney Mckenzie RN Document Signatures Signed By: Destiney Mckenzie RN 11/29/18 15:36 documented in this encounter Plan of Treatment Not on file documented as of this encounter Visit Diagnoses Not on filedocumented in this encounter
--- OUTSIDE RECORDS SUMMARY | 2025-05-08 12:56 | XMS_ITS | Encounter Summary ---
Author Organization [employer] ([place], [place], [place], [place]) Address [address] [place] [address] Care Team Providers Care Blow Pit Helper Name Role Phone Unavailable Primary Care Provider Unavailabl e Encounter Details Date Type Department Care Team (Late st Contact Info) Description 11/29/2018 Transcribed Document [facility] [place] [address] [place] [address] ProviderErika MD [address] [place], [place] [id number] Social History Tobacco Use Types Packs/Day Years [...] 1940 Associated Diagnoses: CAD (coronary artery disease), apache coronary artery; Thrombocytopenia; Coronary artery disease; HTN [...] Non-distended, Normal bowel sounds. Integumentary: Warm, Dry, [place], incision is C/D/I. Neurologic: Alert, left sided [...] (Current Encounter/Past 24 Hours) PT 31.3 Second(s) PA 11/29/2018 06:38 PTT 27.6 Second(s) 11/28/2018 08:53 INR 3.0 PA 11/29/2018 06:38 . Impression and Plan Plan: [...] time of discharge- has sent information to [facility] -Transfer to [facility] 11/24/18 -POD#8 -Awaiting transfer to [facility] -Awaiting response from [facility] 11/25/18 -POD#9 -left upper extremity venous doppler - doppler this am positive for LUE DVT - will start coumadin and heparin bridge -awaiting [facility] 11/26/18 -POD#10 -Heparin drip and coumadin for LUE DVT -Left arm swelling improved today -INR 1.1 today, INR goal 2-3 -Possibly transfer to [facility] this weekend 11/27/18: -POD#11 -Left arm swelling continues to improve -Continues on Coumadin and heparin bridge -INR: 1.4 (1.1 yesterday) goal: 2 to 3 -[facility] soon,? Tomorrow 11/28/18: -POD#12 -BP [...] blood has been set up. -[facility] 11/29/18: -POD#13 -Upper endoscopy showed duodenal [...] D/C due to GI bleed. -Transfer to [facility] EF 55-60% per echo 11/16/18 DVT Prophylaxis: SCDs Diagnosis CAD (coronary artery disease), apache coronary artery - Admitting, Medical. Thrombocytopenia - [...]
--- OUTSIDE RECORDS SUMMARY | 2025-05-08 12:56 | XMS_ITS | Encounter Summary ---
Author Organization [employer] ([place], [place], [place], [place]) Address [address] [place] [address] Care Team Providers Care Tag And Label Cutter Name Role Phone Unavailable Primary Care Provider Unavailabl e Encounter Details Date Type Department Care Team (Late st Contact Info) Description 11/22/2018 Transcribed Document [facility] [place] Family Medicine [address] [place] [address] ProviderErika MD [address] [place] [address] Social History Tobacco Use Types [...] Source : Measured Height Entry Format : Garza Height, Feet : 6 ft Height, Inches [...]
--- OUTSIDE RECORDS SUMMARY | 2025-05-08 12:56 | XMS_ITS | Encounter Summary ---
Author Organization [employer] ([place], [place], [place], [place]) Address [address] [place] [address] Care Team Providers Care Shipwright Apprentice Name Role Phone Unavailable Primary Care Provider Unavailabl e Encounter Details Date Type Department Care Team (Late st Contact Info) Description 11/29/2018 Transcribed Document [facility] [place] [address] ProviderErika MD [address] [place], [place] [id number] Social History Tobacco Use Types Packs/Day Years [...] EDT) Electronically signed by Christina Saini Conversion Explosive Ordnance Technician Cerner at 12/08/2022 12:28 PM CDT documented in this encounter Plan of Treatment Not on file documented as of this encounter Visit Diagnoses Not on filedocumented in this encounter
--- OUTSIDE RECORDS SUMMARY | 2025-05-08 12:56 | XMS_ITS | Encounter Summary ---
Author Organization [email or web address] ([place], [place], [place], [place]) Address [address] [place] [address] Care Team Providers Care Stitcher Utility Name Role Phone Unavailable Primary Care Provider Unavailabl e Encounter Details Date Type Department Care Team (Late st Contact Info) Description 11/30/2018 Transcribed Document [facility] [place] [address] [place] [address] ProviderErika MD [address] [place] [address] Social History Tobacco Use Types [...] 3E room 330. Discussed w/ Carmen from [facility] who is still following pt. She has submitted pt info to for approval. Pt had EGD 11/29 which revealed duodenal ulcer w/ clot but no bleeding, no intervention needed, Off heparin gtt, watching pt's INR and H & H. Speech signed off today, pt is cleared for thins. Met w/ pt and family and informed them of [facility] situation. Also discussed outpt Cardiac Rehab. They prefer to go to [facility]. Phoned them and left msg, sent [...] (not seen on 11/25/18) followed up with [facility] today regarding possible admission - [...] (not seen on 11/25/18) followed up with [facility] today regarding possible admission - plan is to submit for approval today after being seen by therapy, for their MD approval. Once accepting MD in place, bed in place and patient is medically stable will be able to transfer due to patient not requiring a insurance prior auth. CM will continue to follow. ODALYS FAULKNER Rn-Sheet Rock Installer - 11/24/18 13:22:19 11/24/18 Andra from [facility] called to let me know they started a precert on this pt. CF ODALYS FAULKNER Rn-Sheet Rock Installer - 11/22/18 13:56:32 11/22/18 Pt has had a cva. Spoke to his Connie and son Sumeet at the bedside. Pt is lfacid on the left side. Discussed the need for STR and they decided on [facility]. Sent pt info via [employer] to [facility]. CF Documentation Status Complete : Yes SUZANNA HAINES Building Custodian - 11/30/2018 15:24 EDT Discharge Planning Details Persons Assisting Patient at Home : Spouse SUZANNA HAINES Social Worker - 11/30/2018 15:24 EDT Electronically signed by [facility] Conversion Machine Stuffer Felipe at 12/08/2022 12:27 PM CDT documented in this encounter Plan of Treatment Not on file documented as of this encounter Visit Diagnoses Not on filedocumented in this encounter
--- OUTSIDE RECORDS SUMMARY | 2025-05-08 12:56 | XMS_ITS | Encounter Summary ---
Author Organization [employer] ([place], [place], [place], [place]) Address [address] [place] [address] Care Team Providers Care Water Attendant Name Role Phone Unavailable Primary Care Provider Unavailabl e Encounter Details Date Type Department Care Team (Late st Contact Info) Description 11/23/2018 Transcribed Document [facility] [place] Family Medicine [address] [place] [address] ProviderErika MD [address] [place] [address] Social History Tobacco Use Types [...] unspecified 11/17/2018 00:00 Atherosclerotic heart disease of [place] coronary artery without angina pectoris 11/17/2018 00:00 Essential (primary) hypertension 11/17/2018 00:00 Hypothyroidism, unspecified 11/17/2018 00:00 Nonrheumatic aortic (valve) insufficiency 11/17/2018 00:00 Restless legs syndrome 11/17/2018 00:00 Thoracic aortic aneurysm, without rupture 11/17/2018 00:00 Thrombocytopenia, unspecified 11/16/2018 00:00 Atherosclerotic heart disease of [place] coronary artery without angina pectoris 11/16/2018 00:00 [...] AUDREY GRANDE OTR/Ginny - 11/30/2018 15:25 EDT Electrical Machinist Goals, OT Self Feeding LTG Grid Goal [...] Family present. MaxAx2 chair to bed transfer, PREPRESS TECHNICIAN. RN assisting. Pt's L UE very weak. [...] Ther Activities Ea 15 Min : 1 UADREY GRANDE OTR/Ginny - 11/30/2018 15:25 EDT Electronically signed by Christina Saini Conversion Boat Canvas Maker And Installer Cerner at 12/12/2022 8:26 AM CDT documented in this encounter Plan of Treatment Not on file documented as of this encounter Visit Diagnoses Not on filedocumented in this encounter
--- OUTSIDE RECORDS SUMMARY | 2025-05-08 12:56 | XMS_ITS | Encounter Summary ---
Author Organization [employer] ([place], [place], [place], [place]) Address [address] [place] [address] Care Team Providers Care Greenhouse Instructor Name Role Phone Unavailable Primary Care Provider Unavailabl e Encounter Details Date Type Department Care Team (Late st Contact Info) Description 11/22/[address] [facility] [place] Family Medicine [address] [place] [address] ProviderErika MD [address], [place] [id number] Social History Tobacco Use Types Packs/Day Years [...] of Systems Respiratory - wearing 02 by [facility] - has NG tube. Objective Vitals [...] Tab, Oral, At Bedtime saliva substitutes, 1 [place], Buccal, Q2H, PRN Senokot, 17.2 mg= 2 [...]
--- OUTSIDE RECORDS SUMMARY | 2025-05-08 12:56 | XMS_ITS | Encounter Summary ---
Author Organization [employer] ([place], [place], [place], [place]) Address [address] [place] [address] Care Team Providers Care Machinist Supervisor Name Role Phone Unavailable Primary Care Provider Unavailabl e Encounter Details Date Type Department Care Team (Late st Contact Info) Description 11/29/2018 Transcribed Document [facility] [place] Family Medicine [address] [place] [address] ProviderErika MD [address] [place] [address] Social History Tobacco Use Types [...]
--- OUTSIDE RECORDS SUMMARY | 2025-05-08 12:56 | XMS_ITS | Encounter Summary ---
Author Organization [employer] ([place], [place], [place], [place]) Address [address] [place] [address] Care Team Providers Care Structural Steel Trades Worker Name Role Phone Unavailable Primary Care Provider Unavailabl e Encounter Details Date Type Department Care Team (Late st Contact Info) Description 11/22/2018 Transcribed Document [facility] [place] Family Medicine [address] [place] [address] ProviderErika MD [address] [place] [address] Social History Tobacco Use Types [...] at goal rate. Did have BM yesterday. UPWARD BOUND DIRECTOR okayed pt for po diet this am- follow up after breakfast and pt had eating 50% of meal. Pt stated he would enjoy ensure as well. Spoke with RN about observing 1-2 more meals before removing corpak and speaking with MD as well. 11/18: Check on: Pt is on Osmolite 1.5 @ 50m/hr + 1 [id number] daily advancing toward goal of 60ml/hr + 1 [id number] daily. No UPWARD BOUND DIRECTOR consult noted, discussed if any concern for [...] Support: Jevity 1.5 @ 60ml/hr + 1 [id number] daily, HT: 185cm (6'1) ADMIT WT: 79kg/174# Current Wt: 81.6kg (11/17), 82.4kg (11/18) , 84.3 kg (11/22) BMI: 23 IBW: 79kg/100% EST NEEDS: 2144-7937 kcal (25-30kcal/kg), 95g pro (1.2g/kg) DAVION GREEN [...] 11/22/2018 12:04 EDT Electronically signed by Parveen, [facility] Conversion Architecture Professor Cerner at 12/08/2022 12:11 PM CDT documented in this encounter Plan of Treatment Not on file documented as of this encounter Visit Diagnoses Not on filedocumented in this encounter
--- OUTSIDE RECORDS SUMMARY | 2025-05-08 12:56 | XMS_ITS | Encounter Summary ---
Author Organization [employer] ([place], [place], [place], [place]) Address [address] [place] [address] Care Team Providers Care Field Cane Scaler Name Role Phone Unavailable Primary Care Provider Unavailabl e Encounter Details Date Type Department Care Team (Late st Contact Info) Description 11/29/[address] [facility] [place] Family Medicine [address] [place] [address] ProviderErika MD [address] [place], [place] [id number] Social History Tobacco Use Types Packs/Day Years Used Date Smoking Tobacco: Never Assessed Sex and Gender Information Value Date Recorded Sex Assigned at Not on file Legal Sex Male 5:03 PM CDT Gender Identity Not on file Sexual Orientation Not on file documented as of this encounter Miscellaneous Notes * Cerner Conversion Note - Historical ProviderMD - 11/29/2018 2:00 AM CDT Alliances Consultant Details Entered On: 11/29/2018 1:39 EDT Performed [...]
--- OUTSIDE RECORDS SUMMARY | 2025-05-08 12:56 | XMS_ITS | Encounter Summary ---
Author Organization [employer] ([place], [place], [place], [place]) Address [address] [place] [address] Care Team Providers Care Robotic Welding Operator Name Role Phone Unavailable Primary Care Provider Unavailabl e Encounter Details Date Type Department Care Team (Late st Contact Info) Description 11/30/2018 Transcribed Document [facility] [place] Family Medicine [address] [place] [address] ProviderErika MD [address] [place] [address] Social History Tobacco Use Types [...]
--- OUTSIDE RECORDS SUMMARY | 2025-05-08 12:56 | XMS_ITS | Encounter Summary ---
Author Organization [employer] ([place], [place], [place], [place]) Address [address] [place] [address] Care Team Providers Care Clinical Cytogeneticist Name Role Phone Unavailable Primary Care Provider Unavailabl e Encounter Details Date Type Department Care Team (Late st Contact Info) Description 11/22/2018 Transcribed Document [facility] [place] [address] [place] [address] ProviderErika MD [address] [place], [place] [id number] Social History Tobacco Use Types Packs/Day Years Used Date Smoking Tobacco: Never Assessed Sex and Gender Information Value Date Recorded Sex Assigned at Not on file Legal Sex Male 5:03 PM CDT Gender Identity Not on file Sexual Orientation Not on file documented as of this encounter Miscellaneous Notes * Cerner Conversion Note - Historical ProviderMD - 11/22/2018 2:00 AM CDT Software Client Architect Details Entered On: 11/22/2018 6:09 EDT Performed [...]
--- OUTSIDE RECORDS SUMMARY | 2025-05-08 12:56 | XMS_ITS | Encounter Summary ---
Author Organization [employer] ([place], [place], [place], [place]) Address [address] [place] [address] Care Team Providers Care Pot Reliner Name Role Phone Unavailable Primary Care Provider Unavailabl e Encounter Details Date Type Department Care Team (Late st Contact Info) Description 11/22/2018 Transcribed Document [facility] [place] [address] [place] [address] ProviderErika MD [address] [place] [address] Social History Tobacco Use Types [...] unspecified 11/17/2018 00:00 Atherosclerotic heart disease of [place] coronary artery without angina pectoris 11/17/2018 00:00 Essential (primary) hypertension 11/17/2018 00:00 Hypothyroidism, unspecified 11/17/2018 00:00 Nonrheumatic aortic (valve) insufficiency 11/17/2018 00:00 Restless legs syndrome 11/17/2018 00:00 Thoracic aortic aneurysm, without rupture 11/17/2018 00:00 Thrombocytopenia, unspecified 11/16/2018 00:00 Atherosclerotic heart disease of [place] coronary artery without angina pectoris 11/16/2018 00:00 [...] TARI MOORE OTR/L 11/23/2018 15:10 EDT Hand Marketing Information Analyst Test : trace with digits TARI MOORE [...] TARI MOORE OTR/Ginny - 11/23/2018 15:10 EDT Skiver Machine Goals, OT Self Feeding LTG Grid Goal [...]
--- OUTSIDE RECORDS SUMMARY | 2025-05-08 12:56 | XMS_ITS | Encounter Summary ---
Author Organization [employer] ([place], [place], [place], [place]) Address [address] [place] [address] Care Team Providers Care Slab Depiler Operator Name Role Phone Unavailable Primary Care Provider Unavailabl e Encounter Details Date Type Department Care Team (Late st Contact Info) Description 11/30/2018 Transcribed Document [facility] [place] [address] [place] [address] ProviderErika MD [address] [place] [address] Social History Tobacco Use Types [...] 2 Tab, Oral, BID saliva substitutes, 1 [place], Buccal, Q2H, PRN Senokot, 17.2 mg= 2 Tab, Oral, BID Synthroid, 50 mcg= 2.5 mL, IV Push, Q48H Zofran, 4 mg= 2 mL, IV Push, Q4H, PRN documented in this encounter Plan of Treatment Not on file documented as of this encounter Visit Diagnoses Not on filedocumented in this encounter
--- OUTSIDE RECORDS SUMMARY | 2025-05-08 12:56 | XMS_ITS | Encounter Summary ---
Author Organization [employer] ([place], [place], [place], [place]) Address [address] [place] [address] Care Team Providers Care Vision Therapist Name Role Phone Unavailable Primary Care Provider Unavailabl e Encounter Details Date Type Department Care Team (Late st Contact Info) Description 11/30/2018 Transcribed Document [facility] [place] [facility] [address] ProviderErika MD [address] [place] [address] Social History Tobacco Use Types [...] Jose MD - 11/30/2018 3:31 PM CDT [address] [address] Patient Copy Patient Information: Name: DOTTIE VILLASENOR Current Date: 11/30/2018 15:31:38 : 1940 Patient Address: [address] [place] [id number] Patient Attending Physician: JULIO CESAR CARVALHO MD-CAT Primary Care Provider: DEMETRICE ARMIJO NP-[facility] Primary Care Provider Discharge Diagnosis: Acute blood loss anemia; Aortic insufficiency; Coronary artery disease; GI bleed; LUE DVT (deep venous thrombosis); Right MCA CVA (cerebral vascular accident); Thoracic ascending aortic aneurysm Weight on Admission: 174 lb, 5 oz Weight at Discharge: 164 lb, 1 oz Comment: Follow-up Instructions: With: Address: When: JOHN BOWEN [address], [address] [place] [address] Business (1) Within 6 weeks Comments: Patient should call for a follow up appointment with [facility]. Discharge Instructions: Driving after Discharge: Do not drive, Other: No driving or operating heavy machinery until released by a physician. Community Services: Outpt Cardiac Rehab [facility] [phone] They will call pt w/ appt time. [...] 09/17/2005 Document Revised: 01/15/2017 Document Reviewed: 02/10/2014 [employer] Interactive Patient Education ? 2017 [employer] CIGARETTE SMOKING: The facts are clear, cigarette smoking will shorten your life. Smoking can cause many illnesses along the way. As a healthcare provider, we recommend that you stop smoking. Assistance with quitting is available by contacting 2-877-RICR-NOW. This is a free resource providing counseling, [...] Be sure to sign up for the [facility] patient portal, which gives you 16/03 access to your medical information ??? including these discharge instructions ??? using your computer, smartphone, or tablet. Just go to [place] to get started. Questions? Call . [facility] would like to thank you for allowing us to assist you with your healthcare needs. HAMILTON Jarvis ROBERT H, (or labor representative) have received the above patient education materials/instructions and have verbalized understanding: Patient Signature _ Date/Time Patient Steam Drier Operator Signature (if needed) Date/Time Clinician/Hospital Steam Drier Operator Signature (if needed) Date/Time Electronically signed by Parveen [facility] Conversion Clinical Documentation Specialist Felipe at 12/08/2022 12:33 PM CDT documented in this encounter Plan of Treatment Not on file documented as of this encounter Visit Diagnoses Not on filedocumented in this encounter
--- OUTSIDE RECORDS SUMMARY | 2025-05-08 12:56 | XMS_ITS | Encounter Summary ---
Author Organization [employer] ([place], [place], [place], [place]) Address [address] [place] [address] Care Team Providers Care Rail Engineer Name Role Phone Unavailable Primary Care Provider Unavailabl e Encounter Details Date Type Department Care Team (Late st Contact Info) Description 11/29/2018 Transcribed Document [facility] [place] [address] [place] [address] ProviderErika MD [address] [place] [address] Social History Tobacco Use Types Packs/Day Years Used Date Smoking Tobacco: Never Assessed Sex and Gender Information Value Date Recorded Sex Assigned at Not on file Legal Sex Male 5:03 PM CDT Gender Identity Not on file Sexual Orientation Not on file documented as of this encounter Miscellaneous Notes * Cerner Conversion Note - Erika ProviderMD - 11/29/2018 2:51 PM CDT [facility] IntraOp Summary Primary Physician: RIGOBERTO YU MD Finalized Date/Time: 11/29/18 15:07:06 Pt. Name: DOTTIE VILLASENOR /Sex: 1940 Male Med Rec #: [id number] Physician: JULIO CESAR CARVALHO MD[facility] Financial #: [id number] Pt. Type: I Room/Bed: [facility]/ Admit/Disch: 11/16/18 06:45:00 - Institution: [facility] - Case Attendance Entry 1 Entry 2 Entry 3 Case Attendee RIGOBERTO YU MD Reynolds, Ashley N, RN JONNATHAN LUBIN Role Performed Surgeon/Proceduralist, Teacher Adventure Education, First Scrub, First First Time In 11/29/18 [...] Patino Crna CORNEA, MIHAELA, MD Role Performed APPLICATION INTEGRATOR/Nurse Circular Distributor Anesthesiologist of Record Time In 11/29/18 14:47:00 11/29/18 14:47:00 Time Out 11/29/18 15:09:00 11/29/18 15:09:00 Procedure EGD w Control Bleeding EGD w Control Bleeding Other Attendee Superficial Wound Closed By: Last Modified By: Gem Parekh RN Reynolds, Ashley N, RN 11/29/18 15:06:55 11/29/18 15:06:55 [facility] - Case Attendance Audit 11/29/18 15:06:55 Back Seam Stitcher: [email or web address] Modifier: [email or web address] 1 <+> Time Out 1 <*> Procedure EGD w Control Bleeding 2 <+> Time Out 2 <*> Procedure EGD w Control Bleeding 3 <+> Time Out 3 <*> Procedure EGD w Control Bleeding 4 <+> Time Out 4 <*> Procedure EGD w Control Bleeding 5 <+> Time Out 5 <*> Procedure EGD w Control Bleeding 11/29/18 14:59:16 Back Seam Stitcher: [email or web address] Modifier: [email or web address] <+> 1 Procedure <+> 2 Procedure <+> 3 Procedure <+> 4 Procedure <+> 5 Procedure 11/29/18 14:59:14 Back Seam Stitcher: [email or web address] Modifier: [email or web address] 1 <-> Procedure Esophagogastroduodenoscopy 2 <-> Procedure Esophagogastroduodenoscopy 3 <-> Procedure Esophagogastroduodenoscopy 4 <-> Procedure Esophagogastroduodenoscopy 5 <-> Procedure Esophagogastroduodenoscopy 11/29/18 14:49:19 Back Seam Stitcher: [email or web address] Modifier: [email or web address] 1 <*> Procedure Esophagogastroduodenoscopy 2 <+> Time In 2 <*> Procedure Esophagogastroduodenoscopy 3 <+> Time In 3 <*> Procedure Esophagogastroduodenoscopy 4 <+> Time In 4 <*> Procedure Esophagogastroduodenoscopy 5 <+> Time In 5 <*> Procedure Esophagogastroduodenoscopy 11/29/18 14:48:29 Back Seam Stitcher: [email or web address] Modifier: [email or web address] 1 <+> Time In 1 <*> Procedure Esophagogastroduodenoscopy <+> 2 Case Attendee <+> 2 Role Performed <+> 2 Procedure <+> 3 Case Attendee <+> 3 Role Performed <+> 3 Procedure <+> 4 Case Attendee <+> 4 Role Performed <+> 4 Procedure <+> 5 Case Attendee <+> 5 Role Performed <+> 5 Procedure [facility] - Case times Entry 1 Patient In Room Time 11/29/18 14:47:00 Out Room Time 11/29/18 15:09:00 Anesthesia Start Time 11/29/18 14:47:00 Stop Time 11/29/18 15:09:00 Surgery / Procedure Times Start Time 11/29/18 14:51:00 Stop Time 11/29/18 15:06:00 Last Modified By: Gem Parekh RN 11/29/18 15:06:53 [facility] - Case times Audit 11/29/18 15:06:53 Back Seam Stitcher: [email or web address] Modifier: [email or web address] <+> 1 Out Room Time <+> 1 Stop Time <+> 1 Stop Time 11/29/18 14:51:51 Back Seam Stitcher: [email or web address] Modifier: [email or web address] <+> 1 Start Time [facility] - Delays Entry 1 Delay Reason Other Duration 0 Minute(s) Last Modified By: Gem Parekh RN 11/29/18 14:48:33 [facility] - Departure from OR Entry 1 Integumentary Assessment Integumentary WDL Assessment WDL Transfer/Handoff Transfer to PACU Phase I Handoff Method Bedside/Face to face Post-op Transport Stretcher/Gurney Via Patient Transport Gem Parekh RN, Accompanied by Cassie Patino Crna Last Modified By: Gem Parekh RN 11/29/18 14:48:36 [facility] - Endoscopy Details Entry 1 Abdomen Procedure Soft, Non-Tender Assessment Procedure Abdomen 11/29/18 14:47:00 Assessment D/T Radio Frequency Ablation Last Modified By: Gem Parekh RN 11/29/18 14:48:41 [facility] - Fire Risk Assessment Entry 1 [...] Modified By: Gem Parekh RN 11/29/18 14:48:48 [facility] - General Case Lumber Estimator 1 Case Information OR Endo 01 [facility] Case Level 1 Room Verified Yes Wound Class II - Clean-Contaminated Specialty SN Gastroenterology Anesthesia Type MAC ASA Class 4 Diagnosis Preop Diagnosis GI Bleed Postop Same As Preop Yes Postop Diagnosis GI Bleed Last Modified By: Gem Parekh RN 11/29/18 14:48:58 [facility] - Implant Log Entry 1 Entry 2 Type Implant (Synthetic) Implant (Synthetic) Implant Log Implant Type Tissue Implant Type Implant CLIP II RESOLUTION CLIP II RESOLUTION Identification [id number] Description Implant Quantity 1 1 Implant Site Implant Identification Model Number Implant Identification Serial Number Implant [id number] Identification Lot Number Implant [place] Sci:Interv [place] Sci:Interv Identification Cardiology Cardiology Hospice Volunteer Coordinator Name: Implant 3 [id number] Identification Catalog Number Implant Size Implant Has an Yes Yes Expiration Date Implant Expiration 09/05/21 07/10/21 Date Wasted Radioactive Material Time Implanted Tissue Implant Continue for Tissue Implant Documentation Tissue Identification Number Graft Prep Per Hospice Volunteer Coordinator Instructions: Tissue Preparation Method: Reconstitution Solution: Reconstitution Solution Lot Number Reconstitution Solution Expiration Date: Thawing Solution Thawing Solution Lot Number Thawing Solution Expiration Date Preparation Materials, Other Preparation Materials, Other Lot Number Preparation Materials, Other Expiration Date Tissue Prepared/Processed By Hospice Volunteer Coordinator Paperwork Completed Implant Type Comment clip failed Last Modified By: Gem Parekh RN Reynolds, Ashley N, RN 11/29/18 15:00:27 11/29/18 15:06:45 [facility] - Implant Log Audit 11/29/18 15:06:45 Back Seam Stitcher: GARY Modifier: [email or web address] 2 <*> Implant Identification Description CLIP II RESOLUTION [id number] <+> Implant Type Comment 11/29/18 15:04:27 Back Seam Stitcher: [email or web address] Modifier: [email or web address] <+> 2 Implant Identification Description <+> 2 Implant Identification Lot Number <+> 2 Implant Identification Hospice Volunteer Coordinator Name: <+> 2 Implant Expiration Date <+> 2 Implant Quantity <+> 2 Implant Identification Catalog Number <+> 2 Implant Has an Expiration Date <+> 2 Type [facility] - Intraoperative Assessment Entry 1 Valid History / Yes Physical in Chart Preoperative Yes Checklist Reviewed/Evaluated Patient is Latex No Sensitive Level of WDL Consciousness (WDL = Alert, Oriented to Person, Place, and Time) Last Modified By: Gem Parekh RN 11/29/18 14:49:01 [facility] - Intraoperative Equipment Entry 1 Entry [...] Ashley N, RN 11/29/18 14:49:07 11/29/18 14:56:48 [facility] - Intraoperative Equipment Audit 11/29/18 14:56:48 Back Seam Stitcher: [email or web address] Modifier: [email or web address] <+> 2 Photo <+> 2 Video <+> 2 Electrocardiogram (ECG) Electrode Placement <+> 2 Blood Pressure Location <+> 2 Pulse Oximeter Probe Site <+> 2 Flexible Endoscopes Used <+> 2 Scope Serial Number/Identification Number <+> 2 Type [facility] - Patient Positioning Entry 1 Procedure [...] Modified By: Gem Parekh RN 11/29/18 14:59:16 [facility] - Patient Positioning Audit 11/29/18 14:59:16 Back Seam Stitcher: [email or web address] Modifier: [email or web address] <+> 1 Procedure 11/29/18 14:59:14 Back Seam Stitcher: [email or web address] Modifier: [email or web address] 1 <-> Procedure Esophagogastroduodenoscopy [facility] - Sign In Entry 1 Patient, Site, Yes Procedure Identified Surgical Consent Yes Confirmed Surgical Site N/A Marked by person performing procedure Airway Hypothermia Risk No Warming Measures No Taken Last Modified By: Gem Parekh RN 11/29/18 14:49:18 [facility] - Sign Out Entry 1 RN [...] Modified By: Gem Parekh RN 11/29/18 15:07:01 [facility] - Surgical Procedures Entry 1 Procedure EGD w Control Bleeding Primary Procedure Yes Primary Surgeon RIGOBERTO YU MD Start 11/29/18 14:51:00 Stop 11/29/18 15:06:00 Anesthesia Type MAC Specialty SN Gastroenterology Wound Class II - Clean-Contaminated Last Modified By: Gem Parekh RN 11/29/18 15:07:04 [facility] - Surgical Procedures Audit 11/29/18 15:07:04 Back Seam Stitcher: [email or web address] Modifier: [email or web address] <+> 1 Stop 11/29/18 14:59:15 Back Seam Stitcher: [email or web address] Modifier: [email or web address] 1 <*> Procedure Esophagogastroduodenoscopy 1 <+> Start 11/29/18 14:49:23 Back Seam Stitcher: [email or web address] Modifier: [email or web address] 1 <*> Procedure Esophagogastroduodenoscopy 1 <+> Specialty [facility] - Time Out Entry 1 Procedure [...] Modified By: Gem Parekh RN 11/29/18 14:59:17 [facility] - Time Out Audit 11/29/18 14:59:17 Back Seam Stitcher: [email or web address] Modifier: [email or web address] <+> 1 Procedure to be Performed 11/29/18 14:59:15 Back Seam Stitcher: [email or web address] Modifier: [email or web address] 1 <-> Procedure to be Performed Esophagogastroduodenoscopy Case Comments <None> Finalized By: Gem Parekh RN Document Signatures Signed By: Gem Parekh RN 11/29/18 15:07 Electronically signed by Parveen [facility] Conversion Metaphysics Teacher Cerner at 12/08/2022 12:33 PM CDT documented in this encounter Plan of Treatment Not on file documented as of this encounter Visit Diagnoses Not on filedocumented in this encounter
--- OUTSIDE RECORDS SUMMARY | 2025-05-08 12:56 | XMS_ITS | Encounter Summary ---
Author Organization [employer] ([place], [place], [place], [place]) Address [address] [place] [address] Care Team Providers Care Furniture Sprayer Name Role Phone Unavailable Primary Care Provider Unavailabl e Encounter Details Date Type Department Care Team (Late st Contact Info) Description 11/23/2018 Transcribed Document [facility] [place] Family Medicine [address] [place] [address] ProviderErika MD [address] [place] [address] Social History Tobacco Use [...] Time of Assessment : 11/23/2018 20:00 EDT [facility] Clinician Administering Scale : SHELDON MUELLER RN [...] in one limb NIH Sensory (8) : Xckr-rn-hoxiwson sensory loss NIH Best Language (9) : No aphasia NIH Dysarthria (10) : Normal Extinction and Inattention (11) : No abnormality NIH Scale Score : 9 SHELDON MUELLER RN - 11/23/2018 20:14 EDT documented in this encounter Plan of Treatment Not on file documented as of this encounter Visit Diagnoses Not on filedocumented in this encounter
--- OUTSIDE RECORDS SUMMARY | 2025-05-08 12:56 | XMS_ITS | Encounter Summary ---
Author Organization [facility] ([place], [place], [place], [place]) Address [address] [place] [address] Care Team Providers Care Financial Reporting Analyst Name Role Phone Unavailable Primary Care Provider Unavailabl e Encounter Details Date Type Department Care Team (Late st Contact Info) Description 11/22/2018 Transcribed Document [facility] [place] Family Medicine [address] [place] [address] ProviderErika MD [address] [place], [place] [id number] Social History Tobacco Use Types Packs/Day Years [...] 1940 Associated Diagnoses: CAD (coronary artery disease), [place] coronary artery; Thrombocytopenia; Coronary artery disease; HTN [...] S1, S2, No edema. Integumentary: Warm, Dry, [place], incision is C/D/I. Neurologic: Alert, left sided [...] Prophylaxis: SCDs Diagnosis CAD (coronary artery disease), [place] coronary artery - Admitting, Medical. Thrombocytopenia - Working, Medical. Coronary artery disease - Discharge, Medical. HTN (hypertension) - Pre-Op Diagnosis, Medical. Hypothyroidism - Pre-Op Diagnosis, Medical. Aortic insufficiency - Admitting, Medical. Aortic insufficiency - Discharge, Medical. RLS (restless legs syndrome) - Pre-Op Diagnosis, Medical. Thoracic ascending aortic aneurysm - Admitting, Medical. Thoracic ascending aortic aneurysm - Discharge, Medical. Electronically signed by Parveen, [facility] Conversion Regional Coordinator Cerner at 12/08/2022 12:25 PM CDT documented in this encounter Plan of Treatment Not on file documented as of this encounter Visit Diagnoses Not on filedocumented in this encounter
--- OUTSIDE RECORDS SUMMARY | 2025-05-08 12:56 | XMS_ITS | Encounter Summary ---
Author Organization [employer] ([place], [place], [place], [place]) Address [address] [place] [address] Care Team Providers Care Business Economist Name Role Phone Unavailable Primary Care Provider Unavailabl e Encounter Details Date Type Department Care Team (Late st Contact Info) Description 11/22/2018 Transcribed Document [facility] [place] Family Medicine [address] [place] [address] ProviderErika MD [address] [place] [address] Social History Tobacco Use Types [...] D Community Services : Outpt Cardiac Rehab [facility] [phone] F [phone] They will call pt w/ appt time. SUZANNA HAINES, Licensed Loan Officer Assistant - 11/30/2018 15:30 EDT Driving After Discharge : Do not drive, Other: No driving or operating heavy machinery until released by a physician. JAY JAY CRESPO MD-NEU - 11/22/2018 11:16 EDT Electronically signed by Christina Saini Conversion Java Front End Web Developer Cerner at 12/08/2022 12:24 PM CDT documented in this encounter Plan of Treatment Not on file documented as of this encounter Visit Diagnoses Not on filedocumented in this encounter
--- OUTSIDE RECORDS SUMMARY | 2025-05-08 12:56 | XMS_ITS | Encounter Summary ---
Author Organization [employer] ([place], [place], [place], [place]) Address [address] [place] [address] Care Team Providers Care Manufacturing Engineering Technologist Name Role Phone Unavailable Primary Care Provider Unavailabl e Encounter Details Date Type Department Care Team (Late st Contact Info) Description 11/29/2018 Transcribed Document [facility] [place] Family Medicine [address] [place] [address] ProviderErika MD [address] [place] [address] Social History Tobacco Use Types [...]
--- OUTSIDE RECORDS SUMMARY | 2025-05-08 12:56 | XMS_ITS | Encounter Summary ---
Author Organization [employer] ([place], [place], [place], [place]) Address [address] [place] [address] Care Team Providers Care Sap Data Architect Name Role Phone Unavailable Primary Care Provider Unavailabl e Encounter Details Date Type Department Care Team (Late st Contact Info) Description 11/22/2018 Transcribed Document [facility] [place] [address] [place] [address] ProviderErika MD [address] [place] [address] Social History Tobacco Use Types [...]
--- OUTSIDE RECORDS SUMMARY | 2025-05-08 12:56 | XMS_ITS | Encounter Summary ---
Author Organization [employer] ([place], [place], [place], [place]) Address [address] [place] [address] Care Team Providers Care Watch Parts Inspector Name Role Phone Unavailable Primary Care Provider Unavailabl e Encounter Details Date Type Department Care Team (Late st Contact Info) Description 11/22/2018 Transcribed Document [facility] [place] Family Medicine [address] [place] [address] ProviderErika MD [address] [place] [address] Social History Tobacco Use Types Packs/Day Years Used Date Smoking Tobacco: Never Assessed Sex and Gender Information Value Date Recorded Sex Assigned at Not on file Legal Sex Male 5:03 PM CDT Gender Identity Not on file Sexual Orientation Not on file documented as of this encounter Miscellaneous Notes * Cerner Conversion Note - Historical ProviderMD - 11/22/2018 12:18 PM CDT PATIENT EDUCATOR Attempt to Treat Entered On: 11/22/2018 12:20 EDT Performed On: 11/22/2018 12:18 EDT by JOSSUE RODRÍGUEZ SLP Attempt to Treat Inability to Treat Comment : New orders received from Neurologist. ST is currently following pt for dysphagia. Will await neuro dx for full communication JOSSUE Mccarthy, PATIENT EDUCATOR - 11/22/2018 12:18 EDT Electronically signed by Christina Saini Conversion Orthodontic Laboratory Technician Cerner at 12/08/2022 12:12 PM CDT documented in this encounter Plan of Treatment Not on file documented as of this encounter Visit Diagnoses Not on filedocumented in this encounter
--- OUTSIDE RECORDS SUMMARY | 2025-05-08 12:56 | XMS_ITS | Encounter Summary ---
Author Organization [employer] ([place], [place], [place], [place]) Address [address] [place] [address] Care Team Providers Care Black Mill Operator Name Role Phone Unavailable Primary Care Provider Unavailjuliana e Encounter Details Date Type Department Care Team (Late st Contact Info) Description 11/29/2018 Transcribed Document [facility] [place] [address] [place] [address] ProviderErika MD [address] [place] [address] Social History Tobacco Use Types [...] unspecified 11/17/2018 00:00 Atherosclerotic heart disease of [place] coronary artery without angina pectoris 11/17/2018 00:00 Essential (primary) hypertension 11/17/2018 00:00 Hypothyroidism, unspecified 11/17/2018 00:00 Nonrheumatic aortic (valve) insufficiency 11/17/2018 00:00 Restless legs syndrome 11/17/2018 00:00 Thoracic aortic aneurysm, without rupture 11/17/2018 00:00 Thrombocytopenia, unspecified 11/16/2018 00:00 Atherosclerotic heart disease of [place] coronary artery without angina pectoris 11/16/2018 00:00 Nonrheumatic aortic (valve) insufficiency 11/16/2018 00:00 Thoracic aortic aneurysm, without rupture Admission Date : 11/16/2018 06:45 Co-treated by, OT : licensed physical therapist assistant (INTERVENTIONAL RADIOLOGY RN) Personal Devices : Personal Devices No Devices [...] DAKOTA VELAZQUEZ OTR/L - 11/29/2018 13:08 EDT Penitentiary Goals, OT Self Feeding LTG Grid Goal [...] DAKOTA VELAZQUEZ OTR/L - 11/29/2018 13:08 EDT Electronically signed by Christina Saini Conversion Men'S Locker Room Attendant Cerner at 12/08/2022 12:19 PM CDT documented in this encounter Plan of Treatment Not on file documented as of this encounter Visit Diagnoses Not on filedocumented in this encounter
--- OUTSIDE RECORDS SUMMARY | 2025-05-08 12:56 | XMS_ITS | Encounter Summary ---
Author Organization [employer] ([place], [place], [place], [place]) Address [address] [place] [address] Care Team Providers Care Data Management Specialist Name Role Phone Unavailable Primary Care Provider Unavailabl e Encounter Details Date Type Department Care Team (Late st Contact Info) Description 11/29/2018 Transcribed Document [facility] [place] Family Medicine [address] [place] [address] ProviderErika MD [address] [place] [address] Social History Tobacco Use Types Packs/Day Years Used Date Smoking Tobacco: Never Assessed Sex and Gender Information Value Date Recorded Sex Assigned at Not on file Legal Sex Male 5:03 PM CDT Gender Identity Not on file Sexual Orientation Not on file documented as of this encounter Miscellaneous Notes * Cerner Conversion Note - Historical ProviderMD - 11/29/2018 11:15 AM CDT BOX OFFICE MANAGER Attempt to Treat Entered On: 11/29/2018 11:15 [...]
--- OUTSIDE RECORDS SUMMARY | 2025-05-08 12:57 | XMS_ITS | Encounter Summary ---
Author Organization [employer] ([place], [place], [place], [place]) Address [address] [place] [address] Care Team Providers Care Hat Binder Name Role Phone Unavailable Primary Care Provider Unavailabl e Encounter Details Date Type Department Care Team (Late st Contact Info) Description 12/01/2018 Transcribed Document [facility] [place] Family Medicine [address] [place] [address] ProviderErika MD [address] [place] [address] Social History Tobacco Use Types [...]
--- OUTSIDE RECORDS SUMMARY | 2025-05-08 12:57 | XMS_ITS | Encounter Summary ---
Author Organization [employer] ([place], [place], [place], [place]) Address [address] [place] [address] Care Team Providers Care Motor Patrol Operator Name Role Phone Unavailable Primary Care Provider Unavailabl e Encounter Details Date Type Department Care Team (Late st Contact Info) Description 12/01/2018 Transcribed Document [facility] [place] [address] [place] [address] ProviderErika MD [address] [place] [address] Social History Tobacco Use Types [...] contain harmful chemicals. FOR MORE INFORMATION ??? [place] [employer]: www.lung.org ??? [place] [employer]: www.cancer.org This information is not intended to replace advice given to you by your health care provider. Make sure you discuss any questions you have with your health care provider. Document Released: 09/17/2005 Document Revised: 12/01/2016 Document Reviewed: 01/30/2014 [employer] Interactive Patient Education ? 2017 [employer] How to Take Your Blood Pressure [...] 07/23/2009 Document Revised: 08/31/2015 Document Reviewed: 10/05/2014 [employer] Interactive Patient Education ? 2017 [employer] How to Take a Pulse Your [...] 02/14/2004 Document Revised: 02/27/2017 Document Reviewed: 01/13/2017 [employer] Interactive Patient Education ? 2017 [employer] Coronary Artery Bypass Grafting, Care After [...] 02/27/2006 Document Revised: 08/31/2015 Document Reviewed: 01/17/2014 [employer] Interactive Patient Education ? 2017 [employer] Bleeding Precautions When on Anticoagulant Therapy [...] can be dangerous for you. ??? Many lfrv-ahv-sociknm medicines for pain, colds, or stomach problems [...] provider. Document Released: 07/21/2016 Document Reviewed: 07/21/2016 [employer] Interactive Patient Education ? 2017 [employer] Atrial Fibrillation Introduction Atrial fibrillation is [...] Follow these instructions at home: ??? Take jtil-fqp-mbuztgc and prescription medicines only as told by [...] 02/10/2014 [employer] Interactive Patient Education ? 2017 [employer] documented in this encounter Plan of Treatment Not on file documented as of this encounter Visit Diagnoses Not on filedocumented in this encounter
--- OUTSIDE RECORDS SUMMARY | 2025-05-08 12:57 | XMS_ITS | Encounter Summary ---
Author Organization [employer] ([place], [place], [place], [place]) Address [address] [place] [address] Care Team Providers Care Crushed Stone Grader Name Role Phone Unavailable Primary Care Provider Unavailabl e Encounter Details Date Type Department Care Team (Late st Contact Info) Description 11/23/2018 Transcribed Document [facility] [place] [address] [place] [address] ProviderErika MD [address] [place] [address] Social History Tobacco Use [...] Historical ProviderMD - 11/23/2018 1:36 PM CDT Ecology Teacher Details Entered On: 11/23/2018 16:44 EDT Performed [...] EDT Electronically signed by Christina Saini Conversion Head Sugar Reprocess Operator Cerner at 12/08/2022 12:18 PM CDT documented in this encounter Plan of Treatment Not on file documented as of this encounter Visit Diagnoses Not on filedocumented in this encounter
--- OUTSIDE RECORDS SUMMARY | 2025-05-08 12:57 | XMS_ITS | Encounter Summary ---
Author Organization Healthcare Address [address] [place] [address] Care Team Providers Care Urban Gardening Specialist Name Role Phone Sanjuana Valdez APRN Primary Care Provider [phone] Clifford Horner MD Primary Care Provider [phone] Encounter Details Date Type Department Care Team (Late st Contact Info) Description 06/02/2022 Community [facility] Community Practice [address] [place] [address] Joanna Zamora, DPM [address] [place], [place] [id number] Contracture of left ankle (Primary Dx); Contracture [...] foot documented in this encounter Care Teams Urban Gardening Specialist Relationship Specialty Start Date End Date Sanjuana Valdez APRN [address] [place] [address] PCP - General 01/04/21 07/13/24 Clifford Horner MD [address] [place] [address] PCP - General 07/14/24 documented as of this encounter
--- OUTSIDE RECORDS SUMMARY | 2025-05-08 12:57 | XMS_ITS | Encounter Summary ---
Author Organization [employer] ([place], [place], [place], [place]) Address [address] [place] [address] Care Team Providers Care Application Performance Engineer Name Role Phone Unavailable Primary Care Provider Unavailabl e Encounter Details Date Type Department Care Team (Late st Contact Info) Description 11/16/2018 Transcribed Document [facility] Family Medicine [address] [place] [address] ProviderErika MD [address] [place] [address] Social History Tobacco Use Types Packs/Day Years Used Date Smoking Tobacco: Never Assessed Sex and Gender Information Value Date Recorded Sex Assigned at Not on file Legal Sex Male 5:03 PM CDT Gender Identity Not on file Sexual Orientation Not on file documented as of this encounter Miscellaneous Notes * Cerner Conversion Note - Erika ProviderMD - 11/16/2018 8:20 AM CDT [facility] Main OR IntraOp Summary Primary Physician: JULIO CESAR CARVALHO MD-CAT Finalized Date/Time: 11/17/18 10:03:54 Pt. Name: DOTTIE VILLASENOR D.O.B./Sex: 1940 Male Med Rec #: [id number] Physician: JULIO CESAR CARVALHO MD-CAT Financial #: [id number] Pt. Type: I Room/Bed: [facility] Admit/Disch: 11/16/18 06:45:00 - Institution: [facility] IntraOp Case Attendance Entry 1 Entry 2 Entry 3 Case Attendee JULIO CESAR CARVALHO MD-CAT ALTIZER, LISA E, RN Alton Gamble, salon leader Role Performed Surgeon/Proceduralist, Filenet Developer, First Dental Laboratory Technician Apprentice First Time In 11/16/18 07:06:00 11/16/18 07:06:00 [...] CAROLYN, RN Role Performed Scrub, First Anesthesiologist Filenet Developer, Second Time In 11/16/18 07:06:00 11/16/18 07:06:00 [...] [place] Pref Card Builder Role Performed Physician assistant winemaker Physician assistant winemaker Filenet Developer, Second Time In 11/16/18 07:06:00 11/16/18 09:00:00 [...] Attendee Colette Alexander, LISETH Dimas, Alton Gamble, salon leader Pref Card Builder Dental Laboratory Technician Apprentice Role Performed Scrub, First Dental Laboratory Technician Apprentice Dental Laboratory Technician Apprentice Time In 11/16/18 10:32:00 11/16/18 11:05:00 11/16/18 [...] 12:25:17 Entry 13 Case Attendee LISETH ROE, Dental Laboratory Technician Apprentice Role Performed Dental Laboratory Technician Apprentice Time In 11/16/18 12:13:00 Time Out 11/16/18 12:30:00 Procedure Aortic Aneurysm Ascending Repair, CABG w Aortic Valve, Transesophageal Echocardiogram Other Attendee Superficial Wound Closed By: Last Modified By: RADHA VALENCIA, TONJA 11/16/18 12:40:56 [facility] IntraOp Case Attendance Audit 11/16/18 12:40:56 Oil Mixer: ALTIZEL Modifier: ALTIZEL 1 <+> Time Out [...] w Aortic Valve, Transesophageal Echocardiogram 11/16/18 12:25:17 Oil Mixer: ALTIZEL Modifier: ALTIZEL 12 <+> Time Out 12 <*> Procedure Aortic Aneurysm Ascending Repair, CABG w Aortic Valve <+> 13 Case Attendee <+> 13 Role Performed <+> 13 Time In <+> 13 Procedure 11/16/18 11:17:39 Oil Mixer: ALTIZEL Modifier: ALTIZEL <+> 12 Case Attendee <+> 12 Role Performed <+> 12 Time In <+> 12 Procedure 11/16/18 11:17:17 Oil Mixer: ALTIZEL Modifier: ALTIZEL 3 <+> Time Out 3 <*> Procedure Transesophageal Echocardiogram <+> 11 Case Attendee <+> 11 Role Performed <+> 11 Time In <+> 11 Time Out <+> 11 Procedure <+> 11 Other Attendee 11/16/18 10:47:10 Oil Mixer: ALTIZEL Modifier: ALTIZEL <+> 10 Case Attendee <+> 10 Role Performed <+> 10 Time In <+> 10 Time Out <+> 10 Procedure <+> 10 Other Attendee 11/16/18 09:58:31 Oil Mixer: ALTIZEL Modifier: ALTIZEL <+> 1 Procedure <+> 2 Procedure <+> 3 Procedure <+> 4 Procedure <+> 5 Procedure <+> 6 Procedure 7 <*> Procedure Aortic Aneurysm Ascending Repair, CABG w Aortic Valve 8 <*> Procedure Aortic Aneurysm Ascending Repair, CABG w Aortic Valve 9 <*> Procedure Aortic Aneurysm Ascending Repair, CABG w Aortic Valve 11/16/18 09:50:06 Oil Mixer: ALTIZEL Modifier: ALTIZEL 9 <+> Time Out 9 <*> Procedure Aortic Aneurysm Ascending Repair, CABG w Aortic Valve 11/16/18 09:39:14 Oil Mixer: ALTIZEL Modifier: ALTIZEL <+> 9 Case Attendee <+> 9 Role Performed <+> 9 Time In <+> 9 Procedure <+> 9 Other Attendee 11/16/18 09:28:12 Oil Mixer: ALTIZEL Modifier: ALTIZEL <+> 8 Case Attendee <+> 8 Role Performed <+> 8 Time In <+> 8 Procedure 11/16/18 08:24:20 Oil Mixer: ALTIZEL Modifier: ALTIZEL 7 <+> Time Out 7 <*> Procedure Aortic Aneurysm Ascending Repair, CABG w Aortic Valve 11/16/18 08:21:45 Oil Mixer: ALTIZEL Modifier: ALTIZEL <+> 6 Time Out 11/16/18 08:10:59 Oil Mixer: ALTIZEL Modifier: ALTIZEL 6 <*> Time In 11/16/18 07:00:00 <+> 7 Case Attendee <+> 7 Role Performed <+> 7 Time In <+> 7 Procedure 11/16/18 07:19:51 Oil Mixer: ALTIZEL Modifier: ALTIZEL <+> 2 Time In <+> 3 Time In <+> 4 Time In <+> 5 Time In 11/16/18 07:19:37 Oil Mixer: ALTIZEL Modifier: ALTIZEL <+> 1 Time In <+> 2 Case Attendee <+> 2 Role Performed <+> 3 Case Attendee <+> 3 Role Performed <+> 4 Case Attendee <+> 4 Role Performed <+> 5 Case Attendee <+> 5 Role Performed <+> 6 Case Attendee <+> 6 Role Performed <+> 6 Time In [facility] IntraOp Case Times Entry 1 Patient In Room Time 11/16/18 07:06:00 Out Room Time 11/16/18 12:30:00 Anesthesia Start Time 11/16/18 07:06:00 Stop Time 11/16/18 12:30:00 Anesthesia Ready 11/16/18 07:06:00 Surgery / Procedure Times Start Time 11/16/18 08:20:00 Stop Time 11/16/18 12:22:00 Last Modified By: RADHA VALENCIA RN 11/16/18 07:17:32 [facility] IntraOp Case Times Audit 11/16/18 12:30:30 Oil Mixer: ALTIZEL Modifier: ALTIZEL <+> 1 Out Room Time <+> 1 Stop Time <+> 1 Stop Time 11/16/18 08:21:57 Oil Mixer: ALTIZEL Modifier: ALTIZEL <+> 1 Start Time [facility] IntraOp Cautery Entry 1 ESU Identification Cautery Type Monopolar ESU ID Number [id number] ID Type Hospital Number Cautery Settings Cut [...] Modified By: RADHA VALENCIA RN 11/16/18 08:42:12 [facility] IntraOp Communication Entry 1 Entry 2 [...] RN 11/16/18 11:53:58 11/16/18 12:13:00 11/16/18 12:13:00 [facility] IntraOp Communication Audit 11/16/18 12:13:00 Oil Mixer: ALTIZEL Modifier: ALTIZEL <+> 8 Communication By <+> 8 Date and Time <+> 8 Communication To <+> 9 Communication By <+> 9 Date and Time <+> 9 Communication To <+> 9 Comment 11/16/18 11:53:58 Oil Mixer: ALTIZEL Modifier: ALTIZEL <+> 7 Communication By <+> 7 Date and Time <+> 7 Communication To <+> 7 Comment 11/16/18 11:31:42 Oil Mixer: ALTIZEL Modifier: ALTIZEL <+> 6 Communication By <+> 6 Date and Time <+> 6 Communication To 11/16/18 10:22:56 Oil Mixer: ALTIZEL Modifier: ALTIZEL <+> 5 Communication By <+> 5 Date and Time <+> 5 Communication To 11/16/18 09:10:41 Oil Mixer: ALTIZEL Modifier: ALTIZEL <+> 3 Communication By <+> 3 Date and Time <+> 3 Communication To <+> 4 Communication By <+> 4 Date and Time <+> 4 Communication To <+> 4 Comment [facility] IntraOp Counts Verification Entry 1 Entry [...] LISA E, RN 11/16/18 07:20:29 11/16/18 11:54:29 [facility] IntraOp Counts Verification Audit 11/16/18 11:54:29 Oil Mixer: ALTIZEL Modifier: ALTIZEL <+> 2 Procedure <+> 2 Count Type <+> 2 Counts Verification Sequence <+> 2 Count Results <+> 2 Count Performed By (Scrub) <+> 2 Count Performed By (RN) 11/16/18 09:58:33 Oil Mixer: ALTIZEL Modifier: ALTIZEL 1 <*> Procedure Aortic Aneurysm Ascending Repair, CABG w Aortic Valve [facility] IntraOp Counts Final Entry 1 Procedure Aortic Aneurysm Ascending Repair, CABG w Aortic Valve, Transesophageal Echocardiogram Final Count Info Count Type Sponge, Sharps, Instrument, Miscellaneous Counts Verification Skin Closure/end of Sequence procedure Count Results Correct, surgeon notified Counts Performed By Count Performed By MELODY MASON (Scrub) Count Performed By RADHA VALENCIA RN (RN) Last Modified By: RADHA VALENCIA RN 11/16/18 12:01:46 [facility] IntraOp Cultures and Spec Summary Entry 1 Cultrures and Specimens Specimen Ordered: Yes Specimens Types Pathology Specimen(s) Labeled Pathology and Sent to Last Modified By: RADHA VALENCIA RN 11/16/18 09:22:38 [facility] IntraOp Departure from OR Entry 1 Integumentary Assessment Integumentary WDL Assessment WDL Transfer/Handoff Transfer to ICU - Cardiovascular Post-op Transport Bed (including Via specialty) Patient Transport SHERRY NICHOLS, Accompanied by Tye KHAN Tom, salon leader Last Modified By: RADHA VALENCIA RN 11/16/18 08:42:33 [facility] IntraOp Drains and Tubes Entry 1 [...] LISA E, RN 11/16/18 08:42:54 11/16/18 08:42:54 [facility] IntraOp Dressing and Packing Entry 1 Entry 2 Type Dressing Dressing Location Mediastinum Mediastinum Wound Dressing Item 4x4's, Skin Closure Glue 4x4's Wound Packing Type Tape Type Supplemental Applications Applied By Other Comments Soft cloth paper tape Soft cloth paper tape Last Modified By: RADHA VALENCIA RN ALTIZER, LISA E, RN 11/16/18 08:43:06 11/16/18 08:53:50 [facility] IntraOp Dressing and Packing Audit 11/16/18 08:53:50 Oil Mixer: SAIGEIZEL Modifier: ALTIZEL <+> 2 Type <+> 2 Location <+> 2 Wound Dressing Item <+> 2 Other Comments [facility] IntraOp Fire Risk Assessment Entry 1 [...] Modified By: RADHA VALENCIA RN 11/16/18 07:20:01 [facility] IntraOp Fire Risk Assessment Audit 11/16/18 08:43:21 Oil Mixer: SAIGEIZEL Modifier: ALTIZEL 1 <*> Fire Risk Assessment Verified 11/16/18 07:19:00 Date/Time [facility] IntraOp General Case Environmental Auditor 1 Case Information OR OR 14 [facility] Case Level 2 Room Verified Yes Wound Class I - Clean Specialty SN Cardio Thoracic Anesthesia Type General ASA Class 4 Diagnosis Preop Diagnosis CAD, AORTIC VALVE DISEASE, ASCENDING AORTIC ANEURSYM Postop Diagnosis SEE MD POST OP NOTE Last Modified By: RADHA VALENCIA RN 11/16/18 08:50:46 [facility] IntraOp Implant Log Entry 1 Entry 2 Type Implant (Synthetic) Tissue Implant (Biologic) Implant Log Implant Type Grafts, non-biological Tissue Implant Type Heart valve Implant [facility] PLAT VALVE AORT ROOT Identification [id number] [facility] [id number] Description Implant Quantity 1 1 Implant Site AORTA AORTA Implant Identification Model Number Implant [id number] Identification Serial Number Implant Identification Lot Number Implant Michel Ind:Maquet:Cv Medtronic:Card Surg:Tech Identification Supervisor Grower Name: Implant [id number] Identification Catalog Number Implant Size Implant Has an Yes Yes Expiration Date Implant Expiration 08/23/23 05/20/22 Date Wasted Radioactive Material Time Implanted Tissue Implant Continue for Tissue Implant Documentation Tissue Identification Number Graft Prep Per Yes Supervisor Grower Instructions: Tissue Preparation N/A Method: Reconstitution Solution: Reconstitution Solution Lot Number Reconstitution Solution Expiration Date: Thawing Solution Thawing Solution Lot Number Thawing Solution Expiration Date Preparation NACL Materials, Other Preparation [id number] Materials, Other Lot Number Preparation 06/22/22 Materials, Other Expiration Date Tissue MARLON, MELODY Prepared/Processed By Supervisor Grower Yes Paperwork Completed Implant Type Comment Last Modified By: RADHA VALENCIA RN ALTIZER, LISA E, RN 11/16/18 09:42:38 11/16/18 09:42:38 [facility] IntraOp Intraoperative Assessment Entry 1 Handoff [...] Modified By: RADHA VALENCIA RN 11/16/18 08:25:54 [facility] IntraOp Intraoperative Equipment Entry 1 Equipment Intraop Monitoring Blood Pressure Non-Invasive BP Device Source Blood Pressure Arm, right upper Location Pulse Oximeter Hand, left Probe Site Antiembolic Devices Scopes Photo/Video Documentation Last Modified By: RADHA VALENCIA RN 11/16/18 08:51:22 [facility] IntraOp Medication Admin Entry 1 Entry 2 Entry 3 Medication/Irrigant papverine HCL 30mg/ml lidocaine 1% 50ml vial NS 0.9% 50ml injection 10ml - [id number] - [id number] - [id number] Combo Med List Time Administered Route of FLUSH MAMMARY LOCAL FLUSH Administration Dose Dose 150 8 30 Unit of Measure mg ml ml Volume Administered By JULIO CESAR CARVALHO MD-[facility] LÓPEZ PA MEECE, PAUL, PA Procedure Irrigation Irrigant Volume In Irrigant Volume Out Last Modified By: RADHA VALENCIA RN ALTIZER, LISA E, RN ALTIZER, LISA E, RN 11/16/18 08:52:11 11/16/18 11:07:14 11/16/18 08:52:11 Entry 4 Entry 5 Medication/Irrigant Ancef 1Gm advantage KT TISSEEL VH SD vial - [id number] Combo Med List Time Administered Route of IRRIGATION TOPICAL Administration Dose Dose 1 10 Unit of Measure gram ml Volume Administered By JULIO CESAR CARVALHO MD-CAT JULIO CESAR CARVALHO MD-CAT Procedure Irrigation Irrigant Volume In Irrigant Volume Out Last Modified By: RADHA VALENCIA RN ALTIZER, LISA E, RN 11/16/18 08:52:11 11/16/18 09:49:07 [facility] IntraOp Medication Admin Audit 11/16/18 11:07:14 Oil Mixer: ALTIZEL Modifier: ALTIZEL 2 <*> Medication/Irrigant lidocaine 1% 50ml vial - [id number] <*> Administered By ALLA SORIANO RN 11/16/18 09:49:07 Oil Mixer: ALTIZEL Modifier: ALTIZEL <+> 5 Medication/Irrigant <+> 5 Route of Administration <+> 5 Administered By <+> 5 Dose <+> 5 Unit of Measure [facility] IntraOp Patient Positioning Entry 1 Procedure [...] Modified By: RADHA VALENCIA RN 11/16/18 08:49:03 [facility] IntraOp Patient Positioning Audit 11/16/18 09:58:34 Oil Mixer: ALTIZEL Modifier: ALTIZEL 1 <*> Procedure Aortic Aneurysm Ascending Repair, CABG w Aortic Valve [facility] IntraOp Sign In Entry 1 Patient, [...] Modified By: RADHA VALENCIA RN 11/16/18 07:19:47 [facility] IntraOp Sign Out Entry 1 RN [...] Modified By: RADHA VALENCIA RN 11/16/18 12:41:17 [facility] IntraOp Skin Prep Entry 1 Procedure Transesophageal Echocardiogram Prescribed Yes Pre-Surgical Prep Completed Prep Area Chin to TOES Intraop Prep Integumentary WDL Assessment WDL Patients Normal WDL Integumentary Variance(s) Prep Agents Chloraprep Prep by RADHA VALENCIA RN Skin Prep Comment Xander Soriano also prepped Hair Removal Last Modified By: RADHA VALENCIA RN 11/16/18 08:52:45 [facility] IntraOp Skin Prep Audit 11/16/18 09:58:34 Oil Mixer: ALTIZEL Modifier: ALTIZEL <+> 1 Procedure [facility] IntraOp Surgical Procedures Entry 1 Entry [...] RN 11/16/18 09:57:36 11/16/18 08:49:06 11/16/18 09:58:24 [facility] IntraOp Surgical Procedures Audit 11/16/18 12:41:26 Oil Mixer: ALTIZEL Modifier: ALTIZEL <+> 1 Stop <+> 2 Stop <+> 3 Stop 11/16/18 10:51:43 Oil Mixer: ALTIZEL Modifier: ALTIZEL 1 <*> Procedure Aortic Aneurysm Ascending Repair 11/16/18 10:17:14 Oil Mixer: ALTIZEL Modifier: ALTIZEL <+> 3 Start 11/16/18 09:58:24 Oil Mixer: ALTIZEL Modifier: ALTIZEL <+> 3 Procedure <+> 3 Primary Procedure <+> 3 Primary Surgeon <+> 3 Specialty <+> 3 Wound Class <+> 3 Anesthesia Type 11/16/18 09:57:36 Oil Mixer: ALTIZEL Modifier: ALTIZEL 1 <*> Procedure Aortic Aneurysm Ascending Repair 1 <*> Additional Procedure Description (ASCENDING AORTIC ANEURYSM REPAIR, CABG, POSSIBLE AORTIC VALVE REPLACEMENT) [facility] IntraOp Temp Regulation Devices Entry 1 Entry 2 Temp Regulation Temperature Forced Air Warming Warm blankets Regulation Device device Temperature [id number] Regulation Device Serial/Unit Number Temperature Lower body Full body Regulation Site Temperature Device 43 DEG C Setting Temperature RADHA VALENCIA RN ALTIZER, LISA E, RN Regulation Device Applied by Temperature CATIA HUGGER TURNED ON Regulation Comment AFTER AORTIC CROSS CLAMP REMOVED Last Modified By: RADHA VALENCIA RN ALTIZER, LISA E, RN 11/16/18 08:53:25 11/16/18 08:53:25 [facility] IntraOP Time Out Entry 1 Procedure [...] Modified By: RADHA VALENCIA RN 11/16/18 09:58:34 [facility] IntraOP Time Out Audit 11/16/18 09:58:34 Oil Mixer: EARNESTINE Modifier: ALTIZEL 1 <*> Procedure to be Performed Aortic Aneurysm Ascending Repair, CABG w Aortic Valve Case Comments <None> Finalized By: JODI PITT Document Signatures Signed By: RADHA VALENCIA RN 11/16/18 12:41 JODI PITT 11/17/18 10:03 Unfinalized History Date/Time Username Reason for Unfinalizing Freetext Reason for Unfinalizing 11/17/18 09:59 [email or web address] Correct Billing Electronically signed by Parveen [facility] Conversion Assistant Winemaker Cerner at 12/08/2022 12:09 PM CDT documented in this encounter Plan of Treatment Not on file documented as of this encounter Visit Diagnoses Not on filedocumented in this encounter
--- OUTSIDE RECORDS SUMMARY | 2025-05-08 12:57 | XMS_ITS | Encounter Summary ---
Author Organization [employer] ([place], [place], [place], [place]) Address [address] [place] [address] Care Team Providers Care Supervisor Dry Paste Name Role Phone Unavailable Primary Care Provider Unavailabl e Encounter Details Date Type Department Care Team (Late st Contact Info) Description 12/01/2018 Transcribed Document [facility] Family Medicine Replaced by [facility] [place] [address] ProviderErika MD [address] [place] [address] Social History Tobacco Use Types [...] Jose MD - 12/01/2018 1:32 PM CDT [address] [address] Patient Copy Patient Information: Name: DOTTIE VILLASENOR Current Date: 12/01/2018 13:32:25 : 1940 Patient Address: [address] [place] [id number] Patient Attending Physician: JULIO CESAR CARVALHO MD-CAT Primary Care Provider: DEMETRICE ARMIJO NP-[facility] Primary Care Provider Discharge Diagnosis: Acute blood loss anemia; Aortic insufficiency; Coronary artery disease; GI bleed; LUE DVT (deep venous thrombosis); Right MCA CVA (cerebral vascular accident); Thoracic ascending aortic aneurysm Weight on Admission: 174 lb, 5 oz Weight at Discharge: 159 lb Comment: Follow-up Instructions: With: Address: When: DEMETRICE ARMIJO [address] [place], [place] [id number] Within 1 week Comments: When you are discharged from [facility] please call to make a 1 week hospital follow-up appointment. With: Address: When: JULIO CESAR DEY [address] [place] [address] Business (1) 1:15 PM With: Address: When: JULIO CESAR CARVALHO [address] [place] [address] Business (1) Within 2 weeks With: Address: When: JOHN BOWEN [address] [place] [address] Business (1) Within 6 weeks Comments: Patient should call for a follow up appointment with [facility] Neurology. Discharge Instructions: Driving after Discharge: Do not drive, Other: No driving or operating heavy machinery until released by a physician. Community Services: Outpt Cardiac Rehab [facility] [phone] They will call pt w/ appt time. [...] 09/17/2005 Document Revised: 01/15/2017 Document Reviewed: 02/10/2014 [employer] Patient Education ? 2017 [employer] CIGARETTE SMOKING: The facts are clear, cigarette smoking will shorten your life. Smoking can cause many illnesses along the way. As a healthcare provider, we recommend that you stop smoking. Assistance with quitting is available by contacting 3-647-EXAJ-NOW. This is a free resource providing counseling, [...] Be sure to sign up for the [facility] patient portal, which gives you 16/03 access to your medical information ??? including these discharge instructions ??? using your computer, smartphone, or tablet. Just go to [employer] to get started. Questions? Call . [facility] would like to thank you for allowing us to assist you with your healthcare needs. HAMILTON Jarvis ROBERT H, (or publications sales representative) have received the above patient education materials/instructions and have verbalized understanding: Patient Signature _ Date/Time Patient Pipe Line Walker Signature (if needed) Date/Time Clinician/Hospital Pipe Line Walker Signature (if needed) Date/Time documented in this encounter Plan of Treatment Not on file documented as of this encounter Visit Diagnoses Not on filedocumented in this encounter
--- OUTSIDE RECORDS SUMMARY | 2025-05-08 12:57 | XMS_ITS | Encounter Summary ---
Author Organization [employer] ([place], [place], [place], [place]) Address [address] [place] [address] Care Team Providers Care Medical Imaging Technologist Name Role Phone Unavailable Primary Care Provider Unavailabl e Encounter Details Date Type Department Care Team (Late st Contact Info) Description 11/25/2018 Transcribed Document [facility] Family Medicine [address] [place] [address] ProviderErika MD [address] [place] [address] Social History Tobacco Use Types [...]
--- OUTSIDE RECORDS SUMMARY | 2025-05-08 12:57 | XMS_ITS | Encounter Summary ---
Author Organization [employer] ([place], [place], [place], [place]) Address [address] [place] [address] Care Team Providers Care Driller And Reamer Name Role Phone Unavailable Primary Care Provider Unavailabl e Encounter Details Date Type Department Care Team (Late st Contact Info) Description 11/24/2018 Transcribed Document [facility] [place] [facility] Family Medicine [address] [place] [address] ProviderErika MD [address] [place] [address] Social History Tobacco Use Types [...] On: 11/24/2018 13:21 EDT by ODALYS FAULKNER Rn-Visual DeveloperWastewater Supervisor Note Care Management Note : 11/24/18 Andra from [facility] called to let me know they started a precert on this pt. CF Care Management Note Report : ODALYS FUALKNER Rn-Visual Developer - 11/22/18 13:56:32 11/22/18 Pt has had a cva. Spoke to his Connie and son Sumeet at the bedside. Pt is lfacid on the left side. Discussed the need for STR and they decided on [facility]. Sent pt info via [employer] to [facility]. CF Documentation Status Complete : Yes ODALYS FAULKNER Rn-Visual Developer - 11/24/2018 13:21 EDT Electronically signed by Parveen [facility] Conversion Cannery Worker [employer] at 12/08/2022 12:31 PM CDT documented in this encounter Plan of Treatment Not on file documented as of this encounter Visit Diagnoses Not on filedocumented in this encounter
--- OUTSIDE RECORDS SUMMARY | 2025-05-08 12:57 | XMS_ITS | Clinical Summary ---
Author Organization [facility] Address [address] [place] [phone] Phone Care Team Providers Care Insight Leader Name Role Phone Svitlana Manley MD Primary Care Provider Social History Tobacco Use Types Packs/Day Years [...] COVID-19 Vaccine ( - 2023-2 5 season) 2025 Influenza Vaccine (#1) 2025 Hepatitis B Vaccine Aged Out No longe r eligible based on patient's age to complete this topic Meningococcal B Vaccine Aged Out No l onger eligible based on patient's age to complete this topic Insurance MEDICARE [place] PART A AND B Care Teams Insight Leader Relationship Specialty Start Date End Date Svitlana Manley MD [address] [place] [phone] PCP - General Family Medicine 04/10/16
--- OUTSIDE RECORDS SUMMARY | 2025-05-08 12:57 | XMS_ITS | Encounter Summary ---
Author Organization [employer] ([place], [place], [place], [place]) Address [address] [place] [address] Care Team Providers Care Doggy Daycare Activities Director Name Role Phone Unavailable Primary Care Provider Unavailabl e Encounter Details Date Type Department Care Team (Late st Contact Info) Description 11/17/2018 Transcribed Document [facility] [place] Family Medicine [address] [place] [address] ProviderErika MD [address] [place], [place] [id number] Social History Tobacco Use Types Packs/Day Years [...] 1940 Associated Diagnoses: CAD (coronary artery disease), [place] coronary artery; Thrombocytopenia; Coronary artery disease; HTN [...] Palpable bilateral DP pulses. Integumentary: Warm, Dry, [place]. Neurologic: Not alert. Review / Management Results review: NOV 17 03:12 142 110 20 / H 115 4.1 25 1.10 \ NOV 17 03:12 \ L 10.7 / H 15.3 L 112 / L 32.1 \ Blood Gases (Current Encounter/Past 24 Hours) pH Art 7.48 MN 11/17/2018 05:17 pCO2 Art 31.2 LOW 11/17/2018 [...] 43.0 11/16/2018 12:06 pO2 Art POC 433.0 MN 11/16/2018 12:06 HCO3 Art POC 28.5 MN 11/16/2018 12:06 tCO2 Art POC 30.0 MN 11/16/2018 12:06 BE Art POC 4.0 MN 11/16/2018 12:06 sO2 Art POC >99.9 MN 11/16/2018 12:06 ABG Num of Draw Attempts 1 11/17/2018 05:17 Coagulation Results (Current Encounter/Past 24 Hours) No Coagulation Results Found (Past 24 Hours) . Impression and Plan Plan: 11/17/18 -POD#1 -MTs left in place secondary to drainage EF 55-60% per echo 11/16/18 DVT Prophylaxis: SCDs Diagnosis CAD (coronary artery disease), [place] coronary artery - Admitting, Medical. Thrombocytopenia - Working, Medical. Coronary artery disease - Discharge, Medical. HTN (hypertension) - Pre-Op Diagnosis, Medical. Hypothyroidism - Pre-Op Diagnosis, Medical. Aortic insufficiency - Admitting, Medical. Aortic insufficiency - Discharge, Medical. RLS (restless legs syndrome) - Pre-Op Diagnosis, Medical. Thoracic ascending aortic aneurysm - Admitting, Medical. Thoracic ascending aortic aneurysm - Discharge, Medical. Electronically signed by Christina Saini Conversion Induction Coordination Engineer Cerner at 12/08/2022 12:19 PM CDT documented in this encounter Plan of Treatment Not on file documented as of this encounter Visit Diagnoses Not on filedocumented in this encounter
--- OUTSIDE RECORDS SUMMARY | 2025-05-08 12:57 | XMS_ITS | Encounter Summary ---
Author Organization [employer] ([place], [place], [place], [place]) Address [address] [place] [address] Care Team Providers Care Test Desk Operator Name Role Phone Unavailable Primary Care Provider Unavailabl e Encounter Details Date Type Department Care Team (Late st Contact Info) Description 11/18/2018 Transcribed Document [facility] Cardiology [address] [place] [address] Lc Armendariz MD [address] [facility] [address] [place] [address] Social History Tobacco Use Types [...] mg, Oral, At Bedtime saliva substitutes: 1 [place], Buccal, Q2H, PRN: Other (See Comment) sodium [...] of motion, Normal strength. Integumentary: Warm, Dry, [place]. Neurologic: Alert, Oriented. Psychiatric: Cooperative, Appropriate mood & affect. Results Review NOV 18 03:37 138 106 19 / H 200 3.8 27 0.90 \ NOV 18 03:37 \ L 10.2 / H 17.7 L 103 / L 30.3 \ Cardiac Markers (Current Encounter/Past 24 Hours) No Cardiac Marker Results Found (Past 24 Hours) Radiology Results (Last 48 hours) [id number] -- 11/16/2018 06:45 CR Chest 1 Vw Portable (11/16/2018 12:55) Result: PORTABLE CHEST HISTORY: Pneumothorax.COMPARISON: 1 day prior.FINDINGS: The heart is stable in size. The patient is status post mediansternotomy. The endotracheal tube is in the mid thoracic trachea. Anasogastric tube extends below the diaphragm. Left-sided [place]-Ganzcatheter tip is in the left main pulmonary [...] day.FINDINGS: The heart is normal in size. [place]ov[place] catheter tips in theleft pulmonary artery. There [...]
--- OUTSIDE RECORDS SUMMARY | 2025-05-08 12:57 | XMS_ITS | Encounter Summary ---
Author Organization [employer] ([place], [place], [place], [place]) Address [address] [place] [address] Care Team Providers Care Extension Associate Name Role Phone Unavailable Primary Care Provider Unavailabl e Encounter Details Date Type Department Care Team (Late st Contact Info) Description 11/18/2018 Transcribed Document [facility] [place] [address] [place] [address] ProviderErika MD [address] [place], [place] [phone] Social History Tobacco Use Types Packs/Day Years [...] 1940 Associated Diagnoses: CAD (coronary artery disease), [place] coronary artery; Thrombocytopenia; Coronary artery disease; HTN [...] S1, S2, No edema. Integumentary: Warm, Dry, [place], incision is C/D/I. Neurologic: Alert, he did [...] Prophylaxis: SCDs Diagnosis CAD (coronary artery disease), [place] coronary artery - Admitting, Medical. Thrombocytopenia - Working, Medical. Coronary artery disease - Discharge, Medical. HTN (hypertension) - Pre-Op Diagnosis, Medical. Hypothyroidism - Pre-Op Diagnosis, Medical. Aortic insufficiency - Admitting, Medical. Aortic insufficiency - Discharge, Medical. RLS (restless legs syndrome) - Pre-Op Diagnosis, Medical. Thoracic ascending aortic aneurysm - Admitting, Medical. Thoracic ascending aortic aneurysm - Discharge, Medical. Electronically signed by Parveen, [facility] Conversion Wood Flour Miller Cerner at 12/08/2022 12:19 PM CDT documented in this encounter Plan of Treatment Not on file documented as of this encounter Visit Diagnoses Not on filedocumented in this encounter
--- OUTSIDE RECORDS SUMMARY | 2025-05-08 12:57 | XMS_ITS | Encounter Summary ---
Author Organization [employer] ([place], [place], [place], [place]) Address [address] [place] [address] Care Team Providers Care Refueling Ramp Supervisor Name Role Phone Unavailable Primary Care Provider Unavailabl e Encounter Details Date Type Department Care Team (Late st Contact Info) Description 11/18/2018 Transcribed Document [facility] [place] Family Medicine [address] [place] [address] ProviderErika MD [address] [place] [address] Social History Tobacco Use [...] : 11/17/2018 00:00 Atherosclerotic heart disease of three affiliated coronary artery without angina pectoris 11/17/2018 00:00 Essential (primary) hypertension 11/17/2018 00:00 Hypothyroidism, unspecified 11/17/2018 00:00 Nonrheumatic aortic (valve) insufficiency 11/17/2018 00:00 Restless legs syndrome 11/17/2018 00:00 Thoracic aortic aneurysm, without rupture 11/17/2018 00:00 Thrombocytopenia, unspecified 11/16/2018 00:00 Atherosclerotic heart disease of three affiliated coronary artery without angina pectoris 11/16/2018 00:00 [...] SENIA QUINTANA PTA - 11/23/2018 10:24 EDT Fdc Goals Mobility/Bed Mobility LTG PT Grid Goal [...] SENIA QUINTANA PTA - 11/23/2018 10:24 EDT [place] PT Charges PT Therap. Exercise 15 min : 1 PT Ther Activities Ea 15 Min : 1 SENIA QUINTANA PTA - 11/23/2018 10:24 EDT documented in this encounter Plan of Treatment Not on file documented as of this encounter Visit Diagnoses Not on filedocumented in this encounter
--- OUTSIDE RECORDS SUMMARY | 2025-05-08 12:57 | XMS_ITS | Encounter Summary ---
Author Organization [employer] ([place], [place], [place], [place]) Address [address] [place] [address] Care Team Providers Care Speech Therapist Name Role Phone Unavailable Primary Care Provider Unavailabl e Encounter Details Date Type Department Care Team (Late st Contact Info) Description 12/01/2018 Transcribed Document [facility] [place] Family Medicine [address] [place] [address] ProviderErika MD [address] [place] [address] Social History Tobacco Use Types Packs/Day Years Used Date Smoking Tobacco: Never Assessed Sex and Gender Information Value Date Recorded Sex Assigned at Not on file Legal Sex Male 5:03 PM CDT Gender Identity Not on file Sexual Orientation Not on file documented as of this encounter Miscellaneous Notes * Cerner Conversion Note - Historical ProviderMD - 12/01/2018 2:00 AM CDT Casting Director Details Entered On: 12/01/2018 0:23 EDT Performed [...] EDT Electronically signed by Christina Saini Conversion Apartment Leasing Consultant Cerner at 12/08/2022 12:32 PM CDT documented in this encounter Plan of Treatment Not on file documented as of this encounter Visit Diagnoses Not on filedocumented in this encounter
--- OUTSIDE RECORDS SUMMARY | 2025-05-08 12:57 | XMS_ITS | Encounter Summary ---
Author Organization [employer] ([place], [place], [place], [place]) Address [address] [place] [address] Care Team Providers Care Purchasing Buyer Name Role Phone Unavailable Primary Care Provider Unavailabl e Encounter Details Date Type Department Care Team (Late st Contact Info) Description 11/23/2018 Transcribed Document [facility] Family Medicine [address] [place] [address] ProviderErika MD [address] [place], [place] [phone] Social History Tobacco Use Types Packs/Day Years [...] 1940 Associated Diagnoses: CAD (coronary artery disease), [place] coronary artery; Thrombocytopenia; Coronary artery disease; HTN [...] S1, S2, No edema. Integumentary: Warm, Dry, [place], incision is C/D/I. Neurologic: Alert, left sided [...] of discharge- MELLISSA has sent information to [facility] -Transfer to 3 east EF 55-60% per echo 11/16/18 DVT Prophylaxis: SCDs Diagnosis CAD (coronary artery disease), [place] coronary artery - Admitting, Medical. Thrombocytopenia - [...]
--- OUTSIDE RECORDS SUMMARY | 2025-05-08 12:57 | XMS_ITS | Encounter Summary ---
Author Organization [employer] ([place], [place], [place], [place]) Address [address] [place] [address] Care Team Providers Care Art Manager Name Role Phone Unavailable Primary Care Provider Unavailabl e Encounter Details Date Type Department Care Team (Late st Contact Info) Description 12/01/2018 Transcribed Document [facility] [place] Medicine [address] [place] [address] ProviderErika MD [address] [place], [...] and arrangements, chart reviewed, received word from [facility] that bed is available for patient today, on their stroke unit. Patient to be transported via [facility], p/u set for 3pm. RN report to be called to [phone] and discharge summary to be faxed to [phone]. Pt, RN and family aware and in agreement with plan. ANGELA NAIR Social Worker - 12/01/2018 11:35 EDT Care Management Note Report : SUZANNA HAINES Social Worker - 11/30/18 15:30:18 Covering today for D/c planning, pt back on 3E room 330. Discussed w/ Carmen from [facility] who is still following pt. She has submitted pt info to MD for approval. Pt had EGD 11/29 which revealed duodenal ulcer w/ clot but no bleeding, no intervention needed, Off heparin gtt, watching pt's INR and H & H. Speech signed off today, pt is cleared for thins. Met w/ pt and family and informed them of [facility] situation. Also discussed outpt Cardiac Rehab. They prefer to go to [facility]. Phoned them and left msg, sent pt info to them. CM will cont to follow. ANGELA NAIR Mold Laminator - 11/26/18 11:20:05 Continue to follow for discharge needs and arrangements, chart reviewed, admission day 10, transfer from [facility], on room air, WBC=11.2, INR=1.1, PTT=55.8, on IV Heparin gtt due to DVT in left arm, MBS completed today now on regular cardiac diet with thin liquids, PT/OT following (not seen on 11/25/18) followed up with [facility] today regarding possible admission - plan is to submit for approval today after being seen by therapy. Awaiting ANGELA NAIR Mold Laminator - 11/26/18 11:24:04 Continue to follow for discharge needs and arrangements, chart reviewed, admission day 10, transfer from [facility]VU, on room air, WBC=11.2, INR=1.1, PTT=55.8, on IV Heparin gtt due to DVT in left arm, MBS completed today now on regular cardiac diet with thin liquids, PT/OT following (not seen on 11/25/18) followed up with [facility] today regarding possible admission - plan is to submit for approval today after being seen by therapy, for their MD approval. Once accepting MD in place, bed in place and patient is medically stable will be able to transfer due to patient not requiring a insurance prior auth. CM will continue to follow. ODALYS FAULKNER, Rn-Resistor Inspector - 11/24/18 13:22:19 11/24/18 Andra from [facility] called to let me know they started a precert on this pt. CF ODAYLS FAULKNER Rn-Resistor Inspector - 11/22/18 13:56:32 11/22/18 Pt has had a cva. Spoke to his Connie and son Sumeet at the bedside. Pt is lfacid on the left side. Discussed the need for STR and they decided on [facility]. Sent pt info via [employer] to [facility]. CF Documentation Status Complete : Yes ANGELA NAIR Social Worker - 12/01/2018 11:24 EDT Discharge Planning Details Home Caregiver Name/Relationship : Connie King [phone] spouse Discharge Placement Needs : Rehabilitation unit/facility [...] Yes Patient/Family Notified : Connie King Spouse [phone] ANGELA NAIR Social Worker - 12/01/2018 11:35 EDT Final Discharge Disposition Note-CM Discharge To Care Management : IRF -Inpatient Rehabilitation Facility-62 Name of Receiving Facility/Provider-CM : [facility] Stroke unit ANGELA NAIR Social Worker - 12/01/2018 11:35 EDT documented in this encounter Plan of Treatment Not on file documented as of this encounter Visit Diagnoses Not on filedocumented in this encounter
--- OUTSIDE RECORDS SUMMARY | 2025-05-08 12:57 | XMS_ITS | Encounter Summary ---
Author Organization [employer] ([place], [place], [place], [place]) Address [address] [place] [address] Care Team Providers Care Forensic Specialist Name Role Phone Unavailable Primary Care Provider Unavailabl e Encounter Details Date Type Department Care Team (Late st Contact Info) Description 12/01/2018 Transcribed Document [facility] [place] Family Medicine [address] [place] [address] ProviderErika MD [address] [place] [address] Social History Tobacco Use Types [...] Jose MD - 12/01/2018 3:00 PM CDT [facility] [place] [address] VILLASENOR DOTTIE Pickering :1940 Visit Time:11/16/2018 Your Visit Summary Your Care Team Admitting Physician - JULIO CESAR CARVALHO MD-CAT Attending Physician - JULIO CESAR CARVALHO MD-YADIRA Primary Care Physician - DEMETRICE ARMIJO NP-FAM Referring Physician - DEMETRICE ARMIJO NP-FAM Your Diagnosis Acute blood loss anemia Aortic insufficiency, Aortic insufficiency CAD (coronary artery disease), [place] coronary artery, Coronary artery disease GI bleed [...] do next Instructions From Your Care Team [facility]-Stroke Unit RN report #[phone] DC Summary #[phone] You may shower. Make sure your back [...] IF you have a fever greater than [address], call the surgeon. DO NOT drive for [...] Where: [address] [place] [address]- Business (1) Follow Up with JULIO CESAR CARVALHO When 12/15/2018 12:15 PM EDT Where: [address] [place] [address] Business (1) Follow Up with DEMETRICE ARMIJO When Within 1 week Comments When you are discharged from [facility] please call to make a 1 week hospital follow-up appointment. Where: [address] [place] [address]- Follow Up with JOHN BOWEN When Within 6 weeks Comments Patient should call for a follow up appointment with [facility] Neurology. Where: [address] [place] [address]- Business (1) Medications What How [...] contain harmful chemicals. FOR MORE INFORMATION ??? [place] [employer]: www.lung.org ??? [place] [employer]: www.cancer.org This information is not intended to replace advice given to you by your health care provider. Make sure you discuss any questions you have with your health care provider. Document Released: 09/17/2005 Document Revised: 12/01/2016 Document Reviewed: 01/30/2014 [employer] Patient Education ?? 2017 [employer] [place]. How to Take Your Blood Pressure HOW [...] 02/14/2004 Document Revised: 02/27/2017 Document Reviewed: 01/13/2017 [employer] Interactive Patient Education ?? 2017 [employer] Coronary Artery Bypass Grafting, Care After [...] 02/27/2006 Document Revised: 08/31/2015 Document Reviewed: 01/17/2014 [employer] Patient Education ?? 2017 [employer] Bleeding Precautions When on Anticoagulant Therapy [...] can be dangerous for you. ??? Many dwub-yin-ddhsbxc medicines for pain, colds, or stomach problems [...] provider. Document Released: 07/21/2016 Document Reviewed: 07/21/2016 [employer] Interactive Patient Education ?? 2017 [employer] Atrial Fibrillation Introduction Atrial fibrillation is [...] Follow these instructions at home: ??? Take tywe-xcl-mntqqyi and prescription medicines only as told by [...] 09/17/2005 Document Revised: 01/15/2017 Document Reviewed: 02/10/2014 [employer] Interactive Patient Education ?? 2017 [employer] [place]. misoprostol (reji ramos) [facility] What is the most important information [...] disease; or ?? if you are dehydrated. [facility] category X. Misoprostol can cause defects, premature [...] may report side effects to FDA at 1-859-QDC-0545. What other drugs will affect misoprostol? Other drugs may interact with misoprostol, including prescription and iczp-kyz-bronvse medicines, vitamins, and herbal products. Tell each [...] to ensure that the information provided by [employer]. [employer]') is accurate, up-to-date, and complete, but no guarantee is made to that effect. Drug information contained herein may be time sensitive. [employer] information has been compiled for use by healthcare practitioners and consumers in the [place] and therefore [employer] does not warrant that uses outside of the [place] are appropriate, unless specifically indicated otherwise. [employer] drug information does not endorse drugs, diagnose patients or recommend therapy. [employer] drug information is an informational resource designed [...] effective or appropriate for any given patient. [facility] does not assume any responsibility for any aspect of healthcare administered with the aid of information [facility] provides. The information contained herein is not intended to cover all possible uses, directions, precautions, warnings, drug interactions, allergic reactions, or adverse effects. If you have questions about the drugs you are taking, check with your doctor, nurse or pharmacist. Copyright 8509-4447 [facility]. Version: 8.01. Revision Date: 03/02/2014.sucralfate (oral) [...] may report side effects to FDA at 8-490-OJL-1605. What other drugs will affect sucralfate? Sucralfate can make it harder for your body to absorb other medications you take by mouth. Avoid taking any other medications within 2 hours before or after you take sucralfate. Other drugs may interact with sucralfate, including prescription and jglt-woc-ocrrbez medicines, vitamins, and herbal products. Tell each [...] to ensure that the information provided by [employer]') is accurate, up-to-date, and complete, but no guarantee is made to that effect. Drug information contained herein may be time sensitive. [employer] information has been compiled for use by healthcare practitioners and consumers in the [place] and therefore [employer] does not warrant that uses outside of the [place] are appropriate, unless specifically indicated otherwise. [employer] drug information does not endorse drugs, diagnose patients or recommend therapy. [employer] drug information is an informational resource designed [...] effective or appropriate for any given patient. [employer] does not assume any responsibility for any aspect of healthcare administered with the aid of information [employer] provides. The information contained herein is not intended to cover all possible uses, directions, precautions, warnings, drug interactions, allergic reactions, or adverse effects. If you have questions about the drugs you are taking, check with your doctor, nurse or pharmacist. Copyright 3239-6853 [employer]. Version: 8.01. Revision Date: 01/03/2013.sucralfate (oral) (angelica [...] may report side effects to FDA at 4-156-KYF-4595. What other drugs will affect sucralfate? Sucralfate can make it harder for your body to absorb other medications you take by mouth. Avoid taking any other medications within 2 hours before or after you take sucralfate. Other drugs may interact with sucralfate, including prescription and avsz-cao-mgfmtws medicines, vitamins, and herbal products. Tell each [...] to ensure that the information provided by [employer]') is accurate, up-to-date, and complete, but no guarantee is made to that effect. Drug information contained herein may be time sensitive. [employer] information has been compiled for use by healthcare practitioners and consumers in the [place] and therefore [employer] does not warrant that uses outside of the [place] are appropriate, unless specifically indicated otherwise. [employer] drug information does not endorse drugs, diagnose patients or recommend therapy. [employer] drug information is an informational resource designed [...] effective or appropriate for any given patient. [facility] does not assume any responsibility for any aspect of healthcare administered with the aid of information [facility] provides. The information contained herein is not intended to cover all possible uses, directions, precautions, warnings, drug interactions, allergic reactions, or adverse effects. If you have questions about the drugs you are taking, check with your doctor, nurse or pharmacist. Copyright 8868-5109 [employer]. Version: 8.01. Revision Date: 01/03/2013. Emergency Awareness [...] Assistance with quitting is available by contacting 6-815-ELWI-NOW. This is a free resource providing counseling, [...]
--- OUTSIDE RECORDS SUMMARY | 2025-05-08 12:57 | XMS_ITS | Encounter Summary ---
Author Organization [employer] ([place], [place], [place], [place]) Address [address] [place] [address] Care Team Providers Care Furnace Reliner Name Role Phone Unavailable Primary Care Provider Unavailabl e Encounter Details Date Type Department Care Team (Late st Contact Info) Description 11/17/2018 Transcribed Document [facility] [place] Family Medicine [address] [place] [address] ProviderErika MD [address] [place] [address] Social History Tobacco Use Types [...]
--- OUTSIDE RECORDS SUMMARY | 2025-05-08 12:57 | XMS_ITS | Encounter Summary ---
Author Organization [employer] ([place], [place], [place], [place]) Address [address] [place] [address] Care Team Providers Care Station Mechanic Name Role Phone Unavailable Primary Care Provider Unavailabl e Encounter Details Date Type Department Care Team (Late st Contact Info) Description 11/28/2018 Transcribed Document [facility] [place] Family Medicine [address] [place] [address] ProviderErika MD [address] [place] [address] Social History Tobacco Use [...] : Transfer to critical care Rapid Response Station Mechanic #1 : MICHAEL WALLER RN Rapid Response Station Mechanic #2 : DIA BINGHAM RN Rapid Response Station Mechanic #3 : SRINIVAS LEAL RN [place], [place], [...] Team Initiation Reason Details : 3E 333. PRESS BRAKE OPERATOR notified of pt with decrease in BP despite treatment. MD notified. Bolus given and pt labwork obtained. Rapid Response Admission Diagnosis : Atherosclerotic heart disease of [place] coronary artery without angina pectoris Atherosclerotic heart disease of [place] coronary artery without angina pectoris Cerebral infarction, [...] MICHAEL WALLER RN - 11/28/2018 8:36 EDT documented in this encounter Plan of Treatment Not on file documented as of this encounter Visit Diagnoses Not on filedocumented in this encounter
--- OUTSIDE RECORDS SUMMARY | 2025-05-08 12:57 | XMS_ITS | Encounter Summary ---
Author Organization [employer] ([place], [place], [place], [place]) Address [address] [place] [address] Care Team Providers Care Modeling Teacher Name Role Phone Unavailable Primary Care Provider Unavailabl e Encounter Details Date Type Department Care Team (Late st Contact Info) Description 11/24/2018 Transcribed Document [facility] [place] Family Medicine [address] [place] [address] ProviderErika MD [address] [place] [address] Social History Tobacco Use Types [...]
--- OUTSIDE RECORDS SUMMARY | 2025-05-08 12:57 | XMS_ITS | Referral Summary ---
Author Organization [employer] ([place], [place], [place], [place]) Address [address] [place] [address] Care Team Providers Care Precision Layout Worker Name Role Phone Unavailable Primary Care [...]
--- OUTSIDE RECORDS SUMMARY | 2025-05-08 12:57 | XMS_ITS | Encounter Summary ---
Author Organization [employer] ([place], [place], [place], [place]) Address [address] [place] [address] Care Team Providers Care Hand Tire Trimmer Name Role Phone Unavailable Primary Care Provider Unavailabl e Encounter Details Date Type Department Care Team (Late st Contact Info) Description 11/29/2018 Transcribed Document [facility] [place] Family Medicine [address] [place] [address] ProviderErika MD [address] [place] [address] Social History Tobacco Use Types Packs/Day Years Used Date Smoking Tobacco: Never Assessed Sex and Gender Information Value Date Recorded Sex Assigned at Not on file Legal Sex Male 5:03 PM CDT Gender Identity Not on file Sexual Orientation Not on file documented as of this encounter Miscellaneous Notes * Cerner Conversion Note - Erika ProviderMD - 11/29/2018 2:30 PM CDT [facility] Onel PreOp Summary Primary Physician: RIGOBERTO YU MD Finalized Date/Time: 11/29/18 14:12:35 Pt. Name: DOTTIE VILLASENOR Ladan /Sex: 1940 Male Med Rec #: [id number] Physician: JULIO CESAR CARVALHO MD-[facility] Financial #: [id number] Pt. Type: I Room/Bed: 330/1 Admit/Disch: 11/16/18 06:45:00 - Institution: [facility] Onel PreOp Case Times Entry 1 In Preop 11/29/18 13:59:00 Ready for Holding n/a Room Patient Ready for 11/29/18 14:12:00 Surgery Patient Out of Preop 11/29/18 14:12:00 Patient Out of n/a Holding Room Last Modified By: Gem Osborne Rn 11/29/18 14:12:33 [facility] Endo PreOp Case Times Audit 11/29/18 14:12:33 Manager Restaurant: [employer] Modifier: [place] <+> 1 Patient Out of Preop <+> 1 Patient Ready for Surgery Finalized By: Gem Osborne Rn Document Signatures Signed By: Gem Osborne Rn 11/29/18 14:12 documented in this encounter Plan of Treatment Not on file documented as of this encounter Visit Diagnoses Not on filedocumented in this encounter
--- OUTSIDE RECORDS SUMMARY | 2025-05-08 12:57 | XMS_ITS | Encounter Summary ---
Author Organization [employer] ([place], [place], [place], [place]) Address [address] [place] [address] Care Team Providers Care Window Framer Name Role Phone Unavailable Primary Care Provider Unavailabl e Encounter Details Date Type Department Care Team (Late st Contact Info) Description 11/25/2018 Transcribed Document [facility] [place] Family Medicine [address] [place] [address] ProviderErika MD [address] [place], [...] at goal rate. Did have BM yesterday. RECAPPER okayed pt for po diet this am- [...] (11/24) BMI: 23 IBW: 79kg/100% EST NEEDS: 9340-6219 kcal (25-30kcal/kg), 95g pro (1.2g/kg) DAVION GREEN [...]
--- OUTSIDE RECORDS SUMMARY | 2025-05-08 12:57 | XMS_ITS | Encounter Summary ---
Author Organization [employer] ([place], [place], [place], [place]) Address [address] [place] [address] Care Team Providers Care Broadcast Transmitter Operator Name Role Phone Unavailable Primary Care Provider Unavailabl e Encounter Details Date Type Department Care Team (Late st Contact Info) Description 12/01/2018 Transcribed Document [facility] [place] Family Medicine [address] [place] [address] ProviderErika MD [address] [place], [place] [id number] Social History Tobacco Use Types Packs/Day Years [...] 1940 Associated Diagnoses: CAD (coronary artery disease), [place] coronary artery; Thrombocytopenia; Coronary artery disease; HTN [...] complaints. 11/30/18: No complaints, transferred back to [facility] yesterday 12/01/18: Up to chair today, hopefully to [facility] today Review of Systems Constitutional: Weakness. [...] Musculoskeletal: left arm swelling. Integumentary: Warm, Dry, Twodot, incision is C/D/I. Neurologic: Alert, left sided [...] (Current Encounter/Past 24 Hours) PT 14.6 Second(s) DC 12/01/2018 06:53 INR 1.4 DC 12/01/2018 06:53 . Impression and Plan Plan: [...] time of discharge- has sent information to [facility] -Transfer to [facility] 11/24/18 -POD#8 -Awaiting transfer to [facility] -Awaiting response from [facility] 11/25/18 -POD#9 -left upper extremity venous doppler - doppler this am positive for LUE DVT - will start coumadin and heparin bridge -awaiting [facility] 11/26/18 -POD#10 -Heparin drip and coumadin for LUE DVT -Left arm swelling improved today -INR 1.1 today, INR goal 2-3 -Possibly transfer to [facility] this weekend 11/27/18: -POD#11 -Left arm swelling continues to improve -Continues on Coumadin and heparin bridge -INR: 1.4 (1.1 yesterday) goal: 2 to 3 -[facility] soon,? Tomorrow 11/28/18: -POD#12 -BP in 70s-80s this AM -He had a dark black stool and has had a couple of fluid boluses -Heparin was D/C'd and his INR is 2.0 this AM (on coumadin 5mg qd) -Hct is down to 23.6 -GI med has been consulted and he is to undergo EGD -Also some blood has been set up. -Transferred to [facility] 11/29/18: -POD#13 -Upper endoscopy showed duodenal ulceration [...] D/C due to GI bleed. -Transfer to [facility] 11/30/18 POD # 14 EGD yesterday - duodenal ulceration with clot, no active bleeding and no intervention performed INR trending down, off coumadin and heparin Speech signed off yesterday - speech and cognition back to baseline Watch INR and [facility] upon discharge 12/01/18 POD # 15 Bed available at [facility] today\.brTH stable, INR 1.4 EF 55-60% per echo 11/16/18 DVT Prophylaxis: SCDs Diagnosis CAD (coronary artery disease), [place] coronary artery - Admitting, Medical. Thrombocytopenia - [...] Medical. Electronically signed by Parveen [facility] Conversion Item Repair Manager Cerner at 12/08/2022 12:20 PM CDT documented in this encounter Plan of Treatment Not on file documented as of this encounter Visit Diagnoses Not on filedocumented in this encounter
--- OUTSIDE RECORDS SUMMARY | 2025-05-08 12:57 | XMS_ITS | Encounter Summary ---
Author Organization [employer] ([place], [place], [place], [place]) Address [address] [place] [address] Care Team Providers Care Office Machine Punch Operator Name Role Phone Unavailable Primary Care Provider Unavailabl e Encounter Details Date Type Department Care Team (Late st Contact Info) Description 11/17/2018 Transcribed Document [facility] [place] [address] [place] [address] ProviderErika MD [address] [place] [address] Social History Tobacco Use Types [...]
--- OUTSIDE RECORDS SUMMARY | 2025-05-08 12:57 | XMS_ITS | Encounter Summary ---
Author Organization [employer] ([place], [place], [place], [place]) Address [address] [place] [address] Care Team Providers Care Cement Mason Maintenance Name Role Phone Unavailable Primary Care Provider Unavailabl e Encounter Details Date Type Department Care Team (Late st Contact Info) Description 11/23/2018 Transcribed Document [facility] [place] [facility] [place] Medicine [address] [place] [address] ProviderErika MD [address] [place], [...] Tab, Oral, At Bedtime saliva substitutes, 1 [place], Buccal, Q2H, PRN Senokot, 17.2 mg= 2 Tab, Oral, BID Zofran, 4 mg= 2 mL, IV Push, Q4H, PRN Electronically signed by Parveen, [facility] Conversion School Age Program Associate Cerner at 12/08/2022 12:26 PM CDT documented in this encounter Plan of Treatment Not on file documented as of this encounter Visit Diagnoses Not on filedocumented in this encounter
--- OUTSIDE RECORDS SUMMARY | 2025-05-08 12:57 | XMS_ITS | Encounter Summary ---
Author Organization [employer] ([place], [place], [place], [place]) Address [address] [place] [address] Care Team Providers Care Manager Inpatient Name Role Phone Unavailable Primary Care Provider Unavailabl e Encounter Details Date Type Department Care Team (Late st Contact Info) Description 11/25/2018 Transcribed Document [facility] [place] Family Medicine [address] [place] [address] ProviderErika MD [address] [place] [address] Social History Tobacco Use [...] On: 11/25/2018 14:16 EDT by DAKOTA VELAZQUEZ OTR/L Attempt to Treat Unable to Treat [...]
--- OUTSIDE RECORDS SUMMARY | 2025-05-08 12:57 | XMS_ITS | Encounter Summary ---
Author Organization [employer] ([place], [place], [place], [place]) Address [address] [place] [address] Care Team Providers Care Wharfmaster Name Role Phone Unavailable Primary Care Provider Unavailabl e Encounter Details Date Type Department Care Team (Late st Contact Info) Description 11/18/2018 Transcribed Document [facility] [place] [address] [place] [address] ProviderErika MD [address] [place] [address] Social History Tobacco Use [...] Source : Measured Height Entry Format : [place] Height, Feet : 6 ft Height, Inches : 1 Inch Clinical Height : 185.42 cm Body Surface Area (BSA), Routine : 2.07 m2 Body Mass Index (BMI), Routine : 23.97 kg/m2 DANYA GILES RN - 11/18/2018 4:42 EDT Electronically signed by Christina Saini Conversion Horizontal Boring Mill Operator Cerner at 12/08/2022 12:30 PM CDT documented in this encounter Plan of Treatment Not on file documented as of this encounter Visit Diagnoses Not on filedocumented in this encounter
--- OUTSIDE RECORDS SUMMARY | 2025-05-08 12:57 | XMS_ITS | Encounter Summary ---
Author Organization [employer] ([place], [place], [place], [place]) Address [address] [place] [address] Care Team Providers Care Federal Mediation Commissioner Name Role Phone Unavailable Primary Care Provider Unavailabl e Encounter Details Date Type Department Care Team (Late st Contact Info) Description 11/25/2018 Transcribed Document [facility] [place] Family Medicine [address] [place] [address] ProviderErika MD [address] [place] [address] Social History Tobacco Use Types [...] SENIA Snyder PTA - 11/25/2018 15:07 EDT Electronically signed by Christina Saini Conversion Marketing Traffic Coordinator Cerner at 12/08/2022 12:26 PM CDT documented in this encounter Plan of Treatment Not on file documented as of this encounter Visit Diagnoses Not on filedocumented in this encounter
--- OUTSIDE RECORDS SUMMARY | 2025-05-08 12:57 | XMS_ITS | Encounter Summary ---
Author Organization [employer] ([place], [place], [place], [place]) Address [address] [place] [address] Care Team Providers Care Marketing Producer Name Role Phone Unavailable Primary Care Provider Unavailabl e Encounter Details Date Type Department Care Team (Late st Contact Info) Description 11/25/2018 Transcribed Document [facility] [place] [address] [place] [address] ProviderErika MD [address] [place] [address] Social History Tobacco Use Types [...] On: 11/25/2018 12:20 EDT by THERESA CAZARES [facility] Clinical Interventions Heparin Per Weight-Based Protocol : Yes THERESA CAZARES [facility] - 11/25/2018 12:20 EDT Heparin Per [...] 11/25/2018 12:20 EDT Electronically signed by Parveen [facility] Conversion Business Analysis Analyst Cerner at 12/08/2022 12:35 PM CDT documented in this encounter Plan of Treatment Not on file documented as of this encounter Visit Diagnoses Not on filedocumented in this encounter
--- OUTSIDE RECORDS SUMMARY | 2025-05-08 12:57 | XMS_ITS | Encounter Summary ---
Author Organization [employer] ([place], [place], [place], [place]) Address [address] [place] [address] Care Team Providers Care Ice Guard Inspector Name Role Phone Unavailable Primary Care Provider Unavailabl e Encounter Details Date Type Department Care Team (Late st Contact Info) Description 12/01/2018 Transcribed Document [facility] [place] Family Medicine [address] [place] [address] ProviderErika MD [address] [place] [address] Social History Tobacco Use Types [...]
--- OUTSIDE RECORDS SUMMARY | 2025-05-08 12:57 | XMS_ITS | Encounter Summary ---
Author Organization [employer] ([place], [place], [place], [place]) Address [address] [place] [address] Care Team Providers Care P D Driver Name Role Phone Unavailable Primary Care Provider Unavailabl e Encounter Details Date Type Department Care Team (Late st Contact Info) Description 11/25/2018 Transcribed Document [facility] [place] [address] [place] [address] ProviderErika MD [address] [place], [place] [id number] Social History Tobacco Use Types Packs/Day Years [...] Tab, Oral, At Bedtime saliva substitutes, 1 [place], Buccal, Q2H, PRN Senokot, 17.2 mg= 2 Tab, Oral, BID warfarin, 5 mg= 1 Tab, Oral, Daily Zofran, 4 mg= 2 mL, IV Push, Q4H, PRN Electronically signed by Parveen, [facility] Conversion Programmer Business Cerner at 12/08/2022 12:38 PM CDT documented in this encounter Plan of Treatment Not on file documented as of this encounter Visit Diagnoses Not on filedocumented in this encounter
--- OUTSIDE RECORDS SUMMARY | 2025-05-08 12:57 | XMS_ITS | Encounter Summary ---
Author Organization [employer] ([place], [place], [place], [place]) Address [address] [place] [address] Care Team Providers Care Frozen Food Department Manager Name Role Phone Unavailable Primary Care Provider Unavailabl e Encounter Details Date Type Department Care Team (Late st Contact Info) Description 12/01/2018 Transcribed Document [facility] [place] Family Medicine [address] [place] [address] ProviderErika MD [address] [place] [address] Social History Tobacco Use Types [...]
--- OUTSIDE RECORDS SUMMARY | 2025-05-08 12:57 | XMS_ITS | Encounter Summary ---
Author Organization [employer] ([place], [place], [place], [place]) Address [address] [place] [address] Care Team Providers Care Chief Service Observer Name Role Phone Unavailable Primary Care Provider Unavailabl e Encounter Details Date Type Department Care Team (Late st Contact Info) Description 11/18/[address] [facility] [place] Family Medicine [address] [place] [address] ProviderErika MD [address] [place] [address] Social History Tobacco Use Types Packs/Day Years Used Date Smoking Tobacco: Never Assessed Sex and Gender Information Value Date Recorded Sex Assigned at Not on file Legal Sex Male 5:03 PM CDT Gender Identity Not on file Sexual Orientation Not on file documented as of this encounter Miscellaneous Notes * Cerner Conversion Note - Historical ProviderMD - 11/18/2018 2:00 AM CDT Light Truck Driver Details Entered On: 11/18/2018 4:41 EDT Performed [...]
--- OUTSIDE RECORDS SUMMARY | 2025-05-08 12:57 | XMS_ITS | Encounter Summary ---
Author Organization [employer] ([place], [place], [place], [place]) Address [address] [place] [address] Care Team Providers Care Food And Beverage Operations Manager Name Role Phone Unavailable Primary Care Provider Unavailabl e Encounter Details Date Type Department Care Team (Late st Contact Info) Description 11/18/2018 Transcribed Document [facility] [place] [address] [place] [address] ProviderErika MD [address] [place] [address] Social History Tobacco Use Types [...] on Osmolite 1.5 @ 50m/hr + 1 [id number] daily advancing toward goal of 60ml/hr + 1 [id number] daily. No CLINICAL SALES CONSULTANT consult noted, discussed if any concern for [...] midline incision; chest tube 370ml GI: LBM VICE PRESIDENT OF PROCUREMENT (admit 11/16), hypoactive BS, +NGT Nutrition Support: Osmolite 1.5 @ 60ml/hr + 1 [id number] daily, water flush 10ml q1hr HT: 185cm (6'1) ADMIT WT: 79kg/174# Current Wt: 81.6kg (11/17), 82.4kg (11/18) BMI: 23 IBW: 79kg/100% EST NEEDS: 3372-3621 kcal (25-30kcal/kg), 95g pro (1.2g/kg) Bev Olvera [...] TF: Osmolite 1.5 @ 60ml/hr + 1 [id number] daily (provides 2040 kcal, 98g pro). FW per MD. goal: provide nutrition, meet est needs 2. As medically able, recommend swallow eval if appropriate; rec (cardiac) w/consistencies per CLINICAL SALES CONSULTANT. RD will monitor need for supplement. goal: [...]
--- OUTSIDE RECORDS SUMMARY | 2025-05-08 12:57 | XMS_ITS | Encounter Summary ---
Author Organization [employer] ([place], [place], [place], [place]) Address [address] [place] [address] Care Team Providers Care Form Designer Name Role Phone Unavailable Primary Care Provider Unavailabl e Encounter Details Date Type Department Care Team (Late st Contact Info) Description 12/01/2018 Transcribed Document [facility] [place] Family Medicine [address] [place] [address] ProviderErika MD [address] [place] [address] Social History Tobacco Use Types [...] Jose MD - 12/01/2018 1:54 PM CDT [place] [address] DOTTIE VILLASENOR :1940 Visit Time:11/16/2018 Your Visit Summary Your Care Team Admitting Physician - JULIO CESAR CARVALHO MD-CAT Attending Physician - JULIO CESAR CARVALHO MD-YADIRA Primary Care Physician - DEMETRICE ARMIJO NP-FAM Referring Physician - DEMETRICE ARMIJO NP-FAM Your Diagnosis Acute blood loss anemia Aortic insufficiency, Aortic insufficiency CAD (coronary artery disease), [place] coronary artery, Coronary artery disease GI bleed [...] Your Care Team [facility] RN report #[phone] DC Summary #[phone] You may shower. Make sure your back [...] IF you have a fever greater than [address], call the surgeon. DO NOT drive for [...] Where: [address] [place] [address]- Business (1) Follow Up with JULIO CESAR CARVALHO When 12/15/2018 12:15 PM EDT Where: [address] [place] [address] Business (1) Follow Up with DEMETRICE ARMIJO When Within 1 week Comments When you are discharged from [facility] please call to make a 1 week hospital follow-up appointment. Where: [address] [place] [address]- Follow Up with JOHN BOWEN When Within 6 weeks Comments Patient should call for a follow up appointment with [facility]. Where: [address] [place] [address]- Business (1) Medications What How [...] contain harmful chemicals. FOR MORE INFORMATION ??? [place] [employer]: www.lung.org ??? [place] [employer]: www.cancer.org This information is not intended to replace advice given to you by your health care provider. Make sure you discuss any questions you have with your health care provider. Document Released: 09/17/2005 Document Revised: 12/01/2016 Document Reviewed: 01/30/2014 [employer] Interactive Patient Education ?? 2017 [employer] How to Take Your Blood Pressure [...] 07/23/2009 Document Revised: 08/31/2015 Document Reviewed: 10/05/2014 [employer] Interactive Patient Education ?? 2017 [employer]. How to Take a Pulse Your [...] 02/14/2004 Document Revised: 02/27/2017 Document Reviewed: 01/13/2017 [employer] Patient Education ?? 2017 [employer]. Coronary Artery Bypass Grafting, Care After [...] 02/27/2006 Document Revised: 08/31/2015 Document Reviewed: 01/17/2014 [employer] Interactive Patient Education ?? 2017 [employer] Bleeding Precautions When on Anticoagulant Therapy [...] can be dangerous for you. ??? Many hler-ncb-bymvpwh medicines for pain, colds, or stomach problems [...] provider. Document Released: 07/21/2016 Document Reviewed: 07/21/2016 [employer] Interactive Patient Education ?? 2017 [employer]. Atrial Fibrillation Introduction Atrial fibrillation is a [...] Follow these instructions at home: ??? Take owzp-ygy-rqzlhav and prescription medicines only as told by [...] 09/17/2005 Document Revised: 01/15/2017 Document Reviewed: 02/10/2014 [employer] Interactive Patient Education ?? 2017 [employer]. misoprostol (reji ramos) [facility] What is the most important information [...] may report side effects to FDA at 0-786-IQL-4214. What other drugs will affect misoprostol? Other drugs may interact with misoprostol, including prescription and zzuv-lqn-ijitojz medicines, vitamins, and herbal products. Tell each [...] to ensure that the information provided by [employer]. ('Multum') is accurate, up-to-date, and complete, but no guarantee is made to that effect. Drug information contained herein may be time sensitive. [employer] information has been compiled for use by healthcare practitioners and consumers in the [place] and therefore [employer] does not warrant that uses outside of the [place] are appropriate, unless specifically indicated otherwise. [employer] drug information does not endorse drugs, diagnose patients or recommend therapy. [employer] drug information is an informational resource designed [...] effective or appropriate for any given patient. [employer] does not assume any responsibility for any aspect of healthcare administered with the aid of information [employer] provides. The information contained herein is not intended to cover all possible uses, directions, precautions, warnings, drug interactions, allergic reactions, or adverse effects. If you have questions about the drugs you are taking, check with your doctor, nurse or pharmacist. Copyright 4219-0372 [employer]. Version: 8.01. Revision Date: 03/02/2014.sucralfate (oral) (angelica [...] may report side effects to FDA at 0-549-YGU-3035. What other drugs will affect sucralfate? Sucralfate can make it harder for your body to absorb other medications you take by mouth. Avoid taking any other medications within 2 hours before or after you take sucralfate. Other drugs may interact with sucralfate, including prescription and puqr-qpv-ypvmyiw medicines, vitamins, and herbal products. Tell each [...] to ensure that the information provided by [employer]. ('Multum') is accurate, up-to-date, and complete, but no guarantee is made to that effect. Drug information contained herein may be time sensitive. [employer] information has been compiled for use by healthcare practitioners and consumers in the [place] and therefore [employer] does not warrant that uses outside of the [place] are appropriate, unless specifically indicated otherwise. [employer] drug information does not endorse drugs, diagnose patients or recommend therapy. [employer] drug information is an informational resource designed [...] effective or appropriate for any given patient. [employer] does not assume any responsibility for any aspect of healthcare administered with the aid of information [employer] provides. The information contained herein is not intended to cover all possible uses, directions, precautions, warnings, drug interactions, allergic reactions, or adverse effects. If you have questions about the drugs you are taking, check with your doctor, nurse or pharmacist. Copyright 8733-4633 [employer]. Version: 8.01. Revision Date: 01/03/2013.sucralfate (oral) (angelica [...] may report side effects to FDA at 3-454-QFT-3232. What other drugs will affect sucralfate? Sucralfate can make it harder for your body to absorb other medications you take by mouth. Avoid taking any other medications within 2 hours before or after you take sucralfate. Other drugs may interact with sucralfate, including prescription and amze-fgx-zpqrhoo medicines, vitamins, and herbal products. Tell each [...] to ensure that the information provided by [employer]. ('Multum') is accurate, up-to-date, and complete, but no guarantee is made to that effect. Drug information contained herein may be time sensitive. [employer] information has been compiled for use by healthcare practitioners and consumers in the [place] and therefore [employer] does not warrant that uses outside of the [place] are appropriate, unless specifically indicated otherwise. [employer] drug information does not endorse drugs, diagnose patients or recommend therapy. [employer] drug information is an informational resource designed [...] effective or appropriate for any given patient. [employer] does not assume any responsibility for any aspect of healthcare administered with the aid of information [facility] provides. The information contained herein is not intended to cover all possible uses, directions, precautions, warnings, drug interactions, allergic reactions, or adverse effects. If you have questions about the drugs you are taking, check with your doctor, nurse or pharmacist. Copyright 2641-3486 [employer]. Version: 8.01. Revision Date: 01/03/2013. Emergency Awareness [...] Assistance with quitting is available by contacting 8-279-UEODSofa LabsNOW. This is a free resource providing counseling, [...]
--- OUTSIDE RECORDS SUMMARY | 2025-05-08 12:57 | XMS_ITS | Encounter Summary ---
Author Organization [employer] ([place], [place], [place], [place]) Address [address] [place] [address] Care Team Providers Care Brick Setter Operator Name Role Phone Unavailable Primary Care Provider Unavailabl e Encounter Details Date Type Department Care Team (Late st Contact Info) Description 11/30/2018 Transcribed Document [facility] [place] [address] [place] [address] ProviderErika MD [address] [place], [...] Bed scale Routine Weight Entry Format : Aurora Routine Weight, Pounds : 164 lb Routine Weight, Ounces : 1 oz Routine Weight Calculation : 74.57 kg Height Source : Measured Height Entry Format : Aurora Height, Feet : 6 ft Height, Inches [...]
--- OUTSIDE RECORDS SUMMARY | 2025-05-08 12:57 | XMS_ITS | Encounter Summary ---
Author Organization [employer] ([place], [place], [place], [place]) Address [address] [place] [address] Care Team Providers Care Ripsaw Operator Name Role Phone Unavailable Primary Care Provider Unavailabl e Encounter Details Date Type Department Care Team (Late st Contact Info) Description 11/18/2018 Transcribed Document [facility] [place] Medicine [address] [place] [address] ProviderErika MD [address] [place] [address] Social History Tobacco Use Types [...] Initial Visit : Yes Referred by : Flexible Nanny initiated Referral Reason Comment : Post-op visit Ministry Provided to : Patient, Family/Significant other Lutheran Preference : Holiness MARCOS GASCA P - 11/18/2018 10:51 EDT [...] other supported, Relationship strengths identified Spiritual and Lutheran : Prayer shared, Spiritual/Lutheran support provided MARCOS GASCA P - 11/18/2018 10:51 EDT Electronically signed by Parveen, [facility] Conversion Balance Bridge Assembler Cerner at 12/08/2022 12:34 PM CDT documented in this encounter Plan of Treatment Not on file documented as of this encounter Visit Diagnoses Not on filedocumented in this encounter
--- OUTSIDE RECORDS SUMMARY | 2025-05-08 12:57 | XMS_ITS | Encounter Summary ---
Author Organization [employer] ([place], [place], [place], [place]) Address [address] [place] [address] Care Team Providers Care Valve Steamer Name Role Phone Unavailable Primary Care Provider Unavailabl e Encounter Details Date Type Department Care Team (Late st Contact Info) Description 11/18/2018 Transcribed Document [facility] [place] Family Medicine [address] [place] [address] ProviderErika MD [address] [place] [address] Social History Tobacco Use Types [...]
--- OUTSIDE RECORDS SUMMARY | 2025-05-08 12:57 | XMS_ITS | Encounter Summary ---
Author Organization [employer] ([place], [place], [place], [place]) Address [address] [place] [address] Care Team Providers Care Professional Wrestler Name Role Phone Unavailable Primary Care Provider Unavailabl e Encounter Details Date Type Department Care Team (Late st Contact Info) Description 11/25/[address] [facility] [place] [address] [place] [address] ProviderErika MD [address] [place] [address] Social History Tobacco Use Types [...]
--- OUTSIDE RECORDS SUMMARY | 2025-05-08 12:57 | XMS_ITS | Encounter Summary ---
Author Organization [employer] ([place], [place], [place], [place]) Address [address] [place] [address] Care Team Providers Care Assisted Sales Representative Name Role Phone Unavailable Primary Care Provider Unavailabl e Encounter Details Date Type Department Care Team (Late st Contact Info) Description 12/01/2018 Transcribed Document [facility] [place] Family Medicine [address] [place] [address] ProviderErika MD [address] [place] [address] Social History Tobacco Use Types [...] On: 12/01/2018 13:36 EDT by NAIN JARRETT sanitation laborer Documentation Discharge Date/Time : 12/01/2018 15:13 EDT NAIN JARRETT RN - 12/01/2018 16:34 EDT Patient Disposition, General : Discharge Discharge To : Rehabilitation unit/facility Name of Receiving Facility/Provider : [facility] Mode Of Departure, General Discharge : Ambulance/BLS [...] information provided to patient and discussed at [place]. Verbalized understanding. Worker's Compensation Paperwork Completed : NAIN Gomez RN - 12/01/2018 13:36 EDT documented in this encounter Plan of Treatment Not on file documented as of this encounter Visit Diagnoses Not on filedocumented in this encounter
--- OUTSIDE RECORDS SUMMARY | 2025-05-08 12:57 | XMS_ITS | Encounter Summary ---
Author Organization [employer] ([place], [place], [place], [place]) Address [address] [place] [address] Care Team Providers Care High Density Press Operator Name Role Phone Unavailable Primary Care Provider Unavailabl e Encounter Details Date Type Department Care Team (Late st Contact Info) Description 11/24/2018 Transcribed Document [facility] [place] Family Medicine [address] [place] [address] ProviderErika MD [address] [place], [place] [id number] Social History Tobacco Use Types Packs/Day Years [...] 1940 Associated Diagnoses: CAD (coronary artery disease), [place] coronary artery; Thrombocytopenia; Coronary artery disease; HTN [...] S1, S2, No edema. Integumentary: Warm, Dry, [place], incision is C/D/I. Neurologic: Alert, left sided [...] of discharge- CM has sent information to [facility] -Transfer to [facility] 11/24/18 -POD#8 -Awaiting transfer to [facility] -Awaiting response from [facility] EF 55-60% per echo 11/16/18 DVT Prophylaxis: SCDs Diagnosis CAD (coronary artery disease), [place] coronary artery - Admitting, Medical. Thrombocytopenia - [...] - Discharge, Medical. Electronically signed by Interface, [facility] Conversion Switchman Supervisor Cerner at 12/08/2022 12:10 PM CDT documented in this encounter Plan of Treatment Not on file documented as of this encounter Visit Diagnoses Not on filedocumented in this encounter
--- OUTSIDE RECORDS SUMMARY | 2025-05-08 12:57 | XMS_ITS | Encounter Summary ---
Author Organization [employer] ([place], [place], [place], [place]) Address [address] [place] [address] Care Team Providers Care Document Preparer Microfilming Name Role Phone Unavailable Primary Care Provider Unavailabl e Encounter Details Date Type Department Care Team (Late st Contact Info) Description 11/30/2018 Transcribed Document [facility] [place] [address] [place] [address] ProviderErika MD [address] [place] [address] Social History Tobacco Use Types Packs/Day Years Used Date Smoking Tobacco: Never Assessed Sex and Gender Information Value Date Recorded Sex Assigned at Not on file Legal Sex Male 5:03 PM CDT Gender Identity Not on file Sexual Orientation Not on file documented as of this encounter Miscellaneous Notes * Cerner Conversion Note - Historical ProviderMD - 11/30/2018 2:00 AM CDT Ophthalmic Technologist Details Entered On: 11/30/2018 0:59 EDT Performed [...]
--- OUTSIDE RECORDS SUMMARY | 2025-05-08 12:57 | XMS_ITS | Clinical Summary ---
Author Organization [employer] ([place], [place], [place], [place]) Address [address] [place] [address] Care Team Providers Care Vice President Digital Strategist Name Role Phone Unavailable Primary Care Provider [...]
--- OUTSIDE RECORDS SUMMARY | 2025-05-08 12:57 | XMS_ITS | Encounter Summary ---
Author Organization [employer] ([place], [place], [place], [place]) Address [address] [place] [address] Care Team Providers Care Bobbin Cleaner Name Role Phone Unavailable Primary Care Provider Unavailabl e Encounter Details Date Type Department Care Team (Late st Contact Info) Description 11/25/[address] [facility] [place] Family Medicine [address] [place] [address] ProviderErika MD [address] [place], [place] [id number] Social History Tobacco Use Types Packs/Day Years [...] 1940 Associated Diagnoses: CAD (coronary artery disease), [place] coronary artery; Thrombocytopenia; Coronary artery disease; HTN [...] left upper extremity swelling. Integumentary: Warm, Dry, [place], incision is C/D/I. Neurologic: Alert, left sided [...] information to [facility] -Transfer to [facility] 11/24/18 -POD#8 -Awaiting transfer to [facility] -Awaiting response from [facility] 11/25/18 -left upper extremity venous doppler - doppler this am positive for LUE DVT - will start coumadin and heparin bridge -awaiting [facility] EF 55-60% per echo 11/16/18 DVT Prophylaxis: SCDs Diagnosis CAD (coronary artery disease), [place] coronary artery - Admitting, Medical. Thrombocytopenia - [...]
--- OUTSIDE RECORDS SUMMARY | 2025-05-08 12:57 | XMS_ITS | Encounter Summary ---
Author Organization [employer] ([place], [place], [place], [place]) Address [address] [place] [address] Care Team Providers Care Piece Dye Worker Name Role Phone Unavailable Primary Care Provider Unavailabl e Encounter Details Date Type Department Care Team (Late st Contact Info) Description 11/16/2018 Transcribed Document [facility] [place] [address] [place] [address] ProviderErika MD [address] [place] [address] Social History Tobacco Use Types [...] Performed On: 11/16/2018 13:23 EDT by FROY NELI RN Intervention Information: morphine Performed by FROY [...]
--- OUTSIDE RECORDS SUMMARY | 2025-05-08 12:57 | XMS_ITS | Encounter Summary ---
Author Organization [employer] ([place], [place], [place], [place]) Address [address] [place] [address] Care Team Providers Care Denier Control Operator Name Role Phone Unavailable Primary Care Provider Unavailabl e Encounter Details Date Type Department Care Team (Late st Contact Info) Description 11/25/[address] [facility] [place] Family Medicine [address] [place] [address] ProviderErika MD [address] [place] [address] Social History Tobacco Use Types [...] Time of Assessment : 11/25/2018 9:00 EDT [facility] Clinician Administering Scale : Elissa [...]
--- OUTSIDE RECORDS SUMMARY | 2025-05-08 12:57 | XMS_ITS | Encounter Summary ---
Author Organization [employer] ([place], [place], [place], [place]) Address [address] [place] [address] Care Team Providers Care Automotive Brake Technician Name Role Phone Unavailable Primary Care Provider Unavailabl e Encounter Details Date Type Department Care Team (Late st Contact Info) Description 11/24/2018 Transcribed Document [facility] [place] [address] [place] [address] ProviderErika MD [address] [place] [address] Social History Tobacco Use Types Packs/Day Years Used Date Smoking Tobacco: Never Assessed Sex and Gender Information Value Date Recorded Sex Assigned at Not on file Legal Sex Male 5:03 PM CDT Gender Identity Not on file Sexual Orientation Not on file documented as of this encounter Miscellaneous Notes * Cerner Conversion Note - Historical ProviderMD - 11/24/2018 2:00 AM CDT Chief Transfer And Pumphouse Operator Details Entered On: 11/24/2018 3:36 EDT Performed [...]
--- OUTSIDE RECORDS SUMMARY | 2025-05-08 12:57 | XMS_ITS | Encounter Summary ---
Author Organization [employer] ([place], [place], [place], [place]) Address [address] [place] [address] Care Team Providers Care Events And Promotions Assistant Name Role Phone Unavailable Primary Care Provider Unavailabl e Encounter Details Date Type Department Care Team (Late st Contact Info) Description 11/23/2018 Transcribed Document [facility] [place] Family Medicine [address] [place] [address] ProviderErika MD [address] [place] [address] Social History Tobacco Use [...]
--- OUTSIDE RECORDS SUMMARY | 2025-05-08 12:57 | XMS_ITS | Encounter Summary ---
Author Organization [employer] ([place], [place], [place], [place]) Address [address] [place] [address] Care Team Providers Care Port Warden Name Role Phone Unavailable Primary Care Provider Unavailabl e Encounter Details Date Type Department Care Team (Late st Contact Info) Description 11/24/2018 Transcribed Document [facility] [place] [address] [place] [address] ProviderErika MD [address] [place] [address] Social History Tobacco Use Types [...] Bed scale Routine Weight Entry Format : Hines Routine Weight, Pounds : 180 lb Routine Weight, Ounces : 8 oz Routine Weight Calculation : 82.05 kg Height Source : Measured Height Entry Format : Hines Height, Feet : 6 ft Height, Inches [...]
--- OUTSIDE RECORDS SUMMARY | 2025-05-08 12:57 | XMS_ITS | Encounter Summary ---
Author Organization [employer] ([place], [place], [place], [place]) Address [address] [place] [address] Care Team Providers Care Finger Waver Name Role Phone Unavailable Primary Care Provider Unavailabl e Encounter Details Date Type Department Care Team (Late st Contact Info) Description 11/24/2018 Transcribed Document [facility] [place] Family Medicine [address] [place] [address] ProviderErika MD [address] [place] [address] Social History Tobacco Use Types [...]
--- OUTSIDE RECORDS SUMMARY | 2025-05-08 12:57 | XMS_ITS | Encounter Summary ---
Author Organization [employer] ([place], [place], [place], [place]) Address [address] [place] [address] Care Team Providers Care Fire And Safety Helper Name Role Phone Unavailable Primary Care Provider Unavailabl e Encounter Details Date Type Department Care Team (Late st Contact Info) Description 11/23/2018 Transcribed Document [facility] [place] Family Medicine [address] [place] [address] ProviderErika MD [address] [place] [address] Social History Tobacco Use Types [...]
--- OUTSIDE RECORDS SUMMARY | 2025-05-08 12:57 | XMS_ITS | Encounter Summary ---
Author Organization [employer] ([place], [place], [place], [place]) Address [address] [place] [address] Care Team Providers Care Commercial Construction Project Manager Name Role Phone Unavailable Primary Care Provider Unavailjuliana e Encounter Details Date Type Department Care Team (Late st Contact Info) Description 11/17/2018 Transcribed Document [facility] Family Medicine [address] [place] [address] ProviderErika MD [address] [place] [address] Social History Tobacco Use Types [...] On: 11/17/2018 11:49 EDT by Lizabeth Marti, Supervisor Metal [employer]ans Nutrition Assessment Nutrition Assessment Reason : Consult [...] wnls + sternum midline incision GI: LBM PLANT SUPERINTENDENT, hypoactive BS, +NGT, +chest tube (1030 ml) HT: 185cm (6'1) ADMIT WT: 79kg/174# BMI: 23 IBW: 79kg/100% NFPE: insignificant EST NEEDS: 3607-9923 kcal (25-30kcal/kg), 95g pro (1.2g/kg) Lizabeth Marti [...] recommend initate po diet (cardiac) w/consitencies per ALUMINUM SIDING MECHANIC. RD will monitor need for supplement. goal: [...]
--- OUTSIDE RECORDS SUMMARY | 2025-05-08 12:57 | XMS_ITS | Encounter Summary ---
Author Organization [employer] ([place], [place], [place], [place]) Address [address] [place] [address] Care Team Providers Care Hydraulic Operator Name Role Phone Unavailable Primary Care Provider Unavailabl e Encounter Details Date Type Department Care Team (Late st Contact Info) Description 12/01/2018 Transcribed Document [facility] [place] Family Medicine [address] [place] [address] ProviderErika MD [address] [place] [address] Social History Tobacco Use Types [...] KISHA BROWER, PT - 12/01/2018 18:30 EDT Detention Goals Mobility/Bed Mobility LTG PT [...]
--- OUTSIDE RECORDS SUMMARY | 2025-05-08 12:57 | XMS_ITS | Encounter Summary ---
Author Organization [employer] ([place], [place], [place], [place]) Address [address] [place] [address] Care Team Providers Care Pollution Control Chemist Name Role Phone Unavailable Primary Care Provider Unavailabl e Encounter Details Date Type Department Care Team (Late st Contact Info) Description 11/23/2018 Transcribed Document [facility] [place] [address] [place] [address] ProviderErika MD [address] [place] [address] Social History Tobacco Use [...]
--- OUTSIDE RECORDS SUMMARY | 2025-05-08 12:57 | XMS_ITS | Encounter Summary ---
Author Organization [employer] ([place], [place], [place], [place]) Address [address] [place] [address] Care Team Providers Care Arts Manager Name Role Phone Unavailable Primary Care Provider Unavailabl e Encounter Details Date Type Department Care Team (Late st Contact Info) Description 11/18/2018 Transcribed Document [facility] [place] [address] [place] [address] ProviderErika MD [address] [place] [address] Social History Tobacco Use Types [...]
--- OUTSIDE RECORDS SUMMARY | 2025-05-08 12:57 | XMS_ITS | Clinical Summary ---
Author Organization [facility] Address [address] [place] [address] Care Team Providers Care Transfusion Nurse Name Role Phone Clifford Horner MD Primary Care Provider [phone] Allergies No known active allergies Medications dutasteride [...] r (1 - 1-dose 75+ series) 2014 [id number] Vaccine (3 - Moderna risk series) 02/11/2021 [...] complete this topic Insurance MEDICARE Care Teams Transfusion Nurse Relationship Specialty Start Date End Date Clifford Horner MD [address] [facility] [address] [place] [address] PCP - General 07/14/24
--- OUTSIDE RECORDS SUMMARY | 2025-05-08 12:57 | XMS_ITS | Encounter Summary ---
Author Organization [employer] ([place], [place], [place], [place]) Address [address] [place] [address] Care Team Providers Care Gas Main Fitter Helper Name Role Phone Unavailable Primary Care Provider Unavailabl e Encounter Details Date Type Department Care Team (Late st Contact Info) Description 11/24/2018 Transcribed Document [facility] [place] [address] [place] [address] ProviderErika MD [address] [place] [address] Social History Tobacco Use Types [...] SHELDON DORMAN, TONJA - 11/24/2018 3:37 EDT Electronically signed by Christina Saini Conversion Veterinary Surgery Technologist Felipe at 12/08/2022 12:12 PM CDT documented in this encounter Plan of Treatment Not on file documented as of this encounter Visit Diagnoses Not on filedocumented in this encounter
--- OUTSIDE RECORDS SUMMARY | 2025-05-08 12:58 | XMS_ITS | Encounter Summary ---
Author Organization [employer] ([place], [place], [place], [place]) Address [address] [place] [address] Care Team Providers Care Career Development Manager Name Role Phone Unavailable Primary Care Provider Unavailabl e Encounter Details Date Type Department Care Team (Late st Contact Info) Description 11/28/2018 Transcribed Document [facility] [place] [address] [place] [address] ProviderErika MD [address] [place] [address] Social History Tobacco Use Types [...] Jacob Coy MD Electronically signed by Parveen [facility] Conversion Kennel Hand Cerner at 12/08/2022 12:31 PM CDT documented in this encounter Plan of Treatment Not on file documented as of this encounter Visit Diagnoses Not on filedocumented in this encounter
--- OUTSIDE RECORDS SUMMARY | 2025-05-08 12:58 | XMS_ITS | Encounter Summary ---
Author Organization [employer] ([place], [place], [place], [place]) Address [address] [place] [address] Care Team Providers Care Access Representative Name Role Phone Unavailable Primary Care Provider Unavailabl e Encounter Details Date Type Department Care Team (Late st Contact Info) Description 11/20/2018 Transcribed Document [facility] [place] [facility] [place] [address] [place] [address] ProviderErika MD [address] [id number] Social History Tobacco Use Types Packs/Day Years [...] Bedtime, Routine HEENT saliva substitutes - 1 [place], Buccal, Liquid, Q2H, PRN for Other (See [...] Radiology results Radiology Results (Last 48 hours) [id number] -- 11/16/2018 06:45 CR Chest 1 Vw [...] Shortness of breathCOMPARISON: 1 day priorFINDINGS: A Williams-Jovanna catheter tip terminates in the SVC. The Williams-Ganzcatheter has been retracted. The cardiac silhouette is [...]
--- OUTSIDE RECORDS SUMMARY | 2025-05-08 12:58 | XMS_ITS | Encounter Summary ---
Author Organization [employer] [place] ([place], [place], [place], [place]) Address [address] [place] [address] Care Team Providers Care Ditcher Operator Name Role Phone Unavailable Primary Care Provider Unavailabl e Encounter Details Date Type Department Care Team (Late st Contact Info) Description 11/28/2018 Transcribed Document [facility] [place] [address] [place] [address] ProviderErika MD [address] [place] [address] Social History Tobacco Use Types [...]
--- OUTSIDE RECORDS SUMMARY | 2025-05-08 12:58 | XMS_ITS | Encounter Summary ---
Author Organization [employer] ([place], [place], [place], [place]) Address [address] [place] [address] Care Team Providers Care Bdr Name Role Phone Unavailable Primary Care Provider Unavailabl e Encounter Details Date Type Department Care Team (Late st Contact Info) Description 11/28/2018 Transcribed Document 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
--- OUTSIDE RECORDS SUMMARY | 2025-05-08 12:58 | XMS_ITS | Encounter Summary ---
Author Organization [employer] ([place], [place], [place], [place]) Address [address] [place] [address] Care Team Providers Care Systems Specialist Name Role Phone Unavailable Primary Care Provider Unavailabl e Encounter Details Date Type Department Care Team (Late st Contact Info) Description 11/16/2018 Transcribed Document [facility] [place] [address] [place] [address] ProviderErika MD [address] [place] [address] Social History Tobacco Use Types [...] On: 11/16/2018 12:27 EDT by Lorin Pratt, [facility] Phone Call for Consults Consult Phone Call/Page Attempt : Other: Valve: no call Lorin Pratt [facility] - 11/16/2018 13:34 EDT documented in this encounter Plan of Treatment Not on file documented as of this encounter Visit Diagnoses Not on filedocumented in this encounter
--- OUTSIDE RECORDS SUMMARY | 2025-05-08 12:58 | XMS_ITS | Encounter Summary ---
Author Organization [employer] ([place], [place], [place], [place]) Address [address] [place] [address] Care Team Providers Care Interventional Pain Physician Name Role Phone Unavailable Primary Care Provider Unavailabl e Encounter Details Date Type Department Care Team (Late st Contact Info) Description 11/16/2018 Transcribed Document [facility] [place] [address] [place] [address] ProviderErika MD [address] [id number] Social History Tobacco Use Types Packs/Day Years [...] All Problems Prostate stricture / SNOMED CT 65010224 / Confirmed Restless legs syndrome / SNOMED CT 85665581 / Confirmed Nocturia / SNOMED CT 502568083 / Confirmed Cancer of skin of face / SNOMED CT 2826853281 / Confirmed Frequent urination / SNOMED CT 497661137 / Confirmed Hypothyroidism / SNOMED CT 65763337 / Confirmed HTN - Hypertension / SNOMED CT 6053561624 / Confirmed Disorder of prostate ( enlarged) / SNOMED CT 31881108 / Confirmed CAD (coronary artery disease) / SNOMED CT 33788653 / Confirmed At risk for sleep apnea / IMO 68023342 / Confirmed Arthritis / SNOMED CT 9079175 / Confirmed Aortic valve insufficiency / SNOMED CT 119401614 / Confirmed Aneurysm, 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 [...] EDT Height Source Measured Height Entry Format Charles Height/Length, BENGALI (ft) 6 ft Height/Length BENGALI 1 Inch CLINICALHEIGHT 185.42 cm [place] Body Weight 79 kg Weight Source Standing scale Weight Entry Format Charles Weight Swiss lb 174 lb Weight Swiss oz 5 oz CLINICALWEIGHT 79.23 kg Body [...] of motion, Normal strength. Integumentary: Warm, Dry, [place]. Neurologic: Alert, Oriented. Psychiatric: Cooperative, Appropriate mood [...] % 32.4 % Lymph # 2.32 x10(3)/uL Angelina % 9.5 % HI Angelina # 0.68 K/uL Eos % 1.1 % [...] Color Yellow Urine Appearance Clear Urine Specific [place] 1.016 Urine pH Dipstick 6.5 Urine Leukocyte [...]
--- OUTSIDE RECORDS SUMMARY | 2025-05-08 12:58 | XMS_ITS | Encounter Summary ---
Author Organization [employer] ([place], [place], [place], [place]) Address [address] [place] [address] Care Team Providers Care Backhoe Operator Name Role Phone Unavailable Primary Care Provider Unavailabl e Encounter Details Date Type Department Care Team (Late st Contact Info) Description 11/16/2018 Transcribed Document [facility] [place] [address] [place] [address] ProviderErika MD [address] [place] [address] Social History Tobacco Use Types [...] anterior descending). SURGEON: Porfirio Gaxiola IV, MD FITTER MECHANIC: Saud Oliver (AMANDA) ANESTHESIA: General orotracheal. [...] Gaxiola IV, M.D. Electronically signed by Parveen [facility] Conversion Welding Process Engineer Cerner at 12/08/2022 12:25 PM CDT documented in this encounter Plan of Treatment Not on file documented as of this encounter Visit Diagnoses Not on filedocumented in this encounter
--- OUTSIDE RECORDS SUMMARY | 2025-05-08 12:58 | XMS_ITS | Encounter Summary ---
Author Organization [employer] ([place], [place], [place], [place]) Address [address] [place] [address] Care Team Providers Care Publishing Editor Name Role Phone Unavailable Primary Care Provider Unavailabl e Encounter Details Date Type Department Care Team (Late st Contact Info) Description 11/28/2018 Transcribed Document [facility] [place] [address] [place] [address] ProviderErika MD [address] [place] [address] Social History Tobacco Use Types [...]
--- OUTSIDE RECORDS SUMMARY | 2025-05-08 12:58 | XMS_ITS | Encounter Summary ---
Author Organization [employer] ([place], [place], [place], [place]) Address [address] [place] [address] Care Team Providers Care Galvanizer Zinc Name Role Phone Unavailable Primary Care Provider Unavailabl e Encounter Details Date Type Department Care Team (Late st Contact Info) Description 11/16/2018 Transcribed Document [facility] [place] [address] [place] [address] ProviderErika MD [address] [place] [address] Social History Tobacco Use Types [...]
--- OUTSIDE RECORDS SUMMARY | 2025-05-08 12:58 | XMS_ITS | Encounter Summary ---
Author Organization [employer] ([place], [place], [place], [place]) Address [address] [place] [address] Care Team Providers Care Community Relations Police Lieutenant Name Role Phone Unavailable Primary Care Provider Unavailabl e Encounter Details Date Type Department Care Team (Late st Contact Info) Description 11/16/2018 Transcribed Document [facility] [place] [address] [place] [address] ProviderErika MD [address] [place] [address] Social History Tobacco Use Types [...] ROGER LEWIS, PT - 11/18/2018 16:07 EDT Salesperson Flying Squad Goals Mobility/Bed Mobility LTG PT Grid Goal [...] ROGER LEWIS, PT - 11/18/2018 16:07 EDT [place] PT Charges PT Eval Moderate Complexity : 1 ROGER LEWIS, PT - 11/18/2018 16:07 EDT documented in this encounter Plan of Treatment Not on file documented as of this encounter Visit Diagnoses Not on filedocumented in this encounter
--- OUTSIDE RECORDS SUMMARY | 2025-05-08 12:58 | XMS_ITS | Encounter Summary ---
Author Organization [employer] ([place], [place], [place], [place]) Address [address] [place] [address] Care Team Providers Care Supervisor Cold Rolling Name Role Phone Unavailable Primary Care Provider Unavailabl e Encounter Details Date Type Department Care Team (Late st Contact Info) Description 11/28/2018 Transcribed Document [facility] [place] [address] [place] [address] ProviderErika MD [address] [place], [place] [phone] Social History Tobacco Use Types Packs/Day Years Used Date Smoking Tobacco: Never Assessed Sex and Gender Information Value Date Recorded Sex Assigned at Not on file Legal Sex Male 5:03 PM CDT Gender Identity Not on file Sexual Orientation Not on file documented as of this encounter Miscellaneous Notes * Cerner Conversion Note - Historical ProviderMD - 11/28/2018 2:00 AM CDT Scientific Programmer Details Entered On: 11/28/2018 2:45 EDT Performed [...]
--- OUTSIDE RECORDS SUMMARY | 2025-05-08 12:58 | XMS_ITS | Encounter Summary ---
Author Organization [employer] ([place], [place], [place], [place]) Address [address] [place] [address] Care Team Providers Care Head Rigger Name Role Phone Unavailable Primary Care Provider Unavailabl e Encounter Details Date Type Department Care Team (Late st Contact Info) Description 11/16/2018 Transcribed Document [facility] [place] [address] [place] [address] ProviderErika MD [address] [place] [address] Social History Tobacco Use Types [...] PROCEDURE: 1. Left radial arterial line. 2. [place]-Jovanna catheter. SURGEON: Porfirio Gaxiola IV, MD Procedure [...] introducer was applied over guidewire, then a [place]-Jovanna catheter was advanced down MAC introducer to [...]
--- OUTSIDE RECORDS SUMMARY | 2025-05-08 12:58 | XMS_ITS | Encounter Summary ---
Author Organization [facility] ([place], [place], [place], [place]) Address [address] [place] [address] Care Team Providers Care Non Cdl Driver Name Role Phone Unavailable Primary Care Provider Unavailabl e Encounter Details Date Type Department Care Team (Late st Contact Info) Description 11/28/2018 Transcribed Document [facility] [place] [address] [place] [address] ProviderErika MD [address] [place] [address] Social History Tobacco Use Types Packs/Day Years Used Date Smoking Tobacco: Never Assessed Sex and Gender Information Value Date Recorded Sex Assigned at Not on file Legal Sex Male 5:03 PM CDT Gender Identity Not on file Sexual Orientation Not on file documented as of this encounter Miscellaneous Notes * Cerner Conversion Note - Erika ProviderMD - 11/28/2018 10:19 AM CDT [facility] Main OR IntraOp Summary Primary Physician: SAMAN BERNSTEIN MD-GAE Finalized Date/Time: 11/30/18 09:14:16 Pt. Name: DOTTIE VILLASENOR D.O.B./Sex: 1940 Male Med Rec #: [id number] Physician: JULIO CESAR CARVALHO MD-[facility] Financial #: [id number] Pt. Type: I Room/Bed: [facility]/1 Admit/Disch: 11/16/18 06:45:00 - Institution: [facility] IntraOp Case Attendance Entry 1 Entry 2 Entry 3 Case Attendee SAMAN BERNSTEIN MD-SALMA GARCIA MD WURTELE, JOHN L. Role Performed Surgeon/Proceduralist, Anesthesiologist Solvent Process Extractor Operator, Ancillary First Time In 11/28/18 10:10:00 11/28/18 10:10:00 11/28/18 10:10:00 Time Out 11/28/18 10:35:00 11/28/18 10:35:00 11/28/18 10:35:00 Procedure Esophagogastroduodenosco Esophagogastroduodenosco Esophagogastroduodenosco py py py Other Attendee Superficial Wound Closed By: Last Modified By: Sukumar Casanova, Sukumar Gibbs, Sukumar Gibbs RN 11/28/18 11:00:07 11/28/18 11:00:07 11/28/18 11:00:07 Entry 4 Entry 5 Case Attendee Dianne Garcia, Sukumar Gibbs, TONJA Role Performed Tunnel Miner, First Tunnel Miner, Second Time In 11/28/18 10:10:00 11/28/18 10:10:00 Time Out 11/28/18 10:35:00 11/28/18 10:35:00 Procedure Esophagogastroduodenosco Esophagogastroduodenosco py py Other Attendee Superficial Wound Closed By: Last Modified By: Sukumar Casanova, Sukumar Gibbs RN 11/28/18 11:00:07 11/28/18 11:00:07 [facility] IntraOp Case Attendance Audit 11/28/18 11:00:07 Strip Machine Operator: ANDRADES Modifier: PANTANOS 1 <+> Time Out 1 <*> Procedure Esophagogastroduodenoscopy 2 <+> Time Out 2 <*> Procedure Esophagogastroduodenoscopy 3 <+> Time Out 3 <*> Procedure Esophagogastroduodenoscopy 4 <+> Time Out 4 <*> Procedure Esophagogastroduodenoscopy 5 <+> Time Out 5 <*> Procedure Esophagogastroduodenoscopy 11/28/18 10:20:36 Strip Machine Operator: FABIANAANOS Modifier: PANTANOS <+> 1 Procedure 2 <+> Time In 2 <*> Procedure Esophagogastroduodenoscopy 3 <+> Time In 3 <*> Procedure Esophagogastroduodenoscopy 4 <+> Time In 4 <*> Procedure Esophagogastroduodenoscopy 5 <+> Time In 5 <*> Procedure Esophagogastroduodenoscopy [facility] IntraOp Case Times Entry 1 Patient In Room Time 11/28/18 10:10:00 Out Room Time 11/28/18 10:35:00 Anesthesia Start Time 11/28/18 10:10:00 Stop Time 11/28/18 10:35:00 Surgery / Procedure Times Start Time 11/28/18 10:19:00 Stop Time 11/28/18 10:33:00 Last Modified By: Sukumar Casanova RN 11/28/18 10:59:40 [facility] IntraOp Case Times Audit 11/28/18 10:59:40 Strip Machine Operator: PANTANOS Modifier: PANTANOS <+> 1 Out Room Time <+> 1 Stop Time <+> 1 Stop Time 11/28/18 10:22:00 Strip Machine Operator: PANTANOS Modifier: PANTANOS <+> 1 Start Time [facility] IntraOp Departure from OR Entry 1 Integumentary Assessment Transfer/Handoff Transfer to PACU Phase I Handoff Method Bedside/Face to face, Online nursing summary Post-op Transport Stretcher/Gurney Via Patient Transport Sukumar Casanova RN, Accompanied by SALMA MARROQUIN MD Last Modified By: Sukumar Casanova RN 11/28/18 10:25:50 [facility] IntraOp Departure from OR Audit 11/28/18 10:25:50 Strip Machine Operator: FABIANAANOS Modifier: PANTANOS 1 <*> Patient Transport Accompanied by Sukumar Casanova RN [facility] IntraOp Fire Risk Assessment Entry 1 Fire [...] Modified By: Sukumar Casanova RN 11/28/18 10:15:58 [facility] IntraOp General Case Kitchen Runner 1 Case Information OR OR [facility] Case Level 1 Room Verified Yes Wound Class II - Clean-Contaminated Specialty SN Gastroenterology Anesthesia Type General ASA Class 4E Diagnosis Preop Diagnosis GASTRIC BLEED Postop Same As Preop Yes Postop Diagnosis GASTRIC BLEED Last Modified By: Sukumar Casanova RN 11/28/18 10:18:38 [facility] IntraOp General Case Data Audit 11/28/18 10:18:38 Strip Machine Operator: WILL Modifier: PANTANOS <+> 1 Postop Same As Preop <+> 1 Preop Diagnosis <+> 1 Postop Diagnosis [facility] IntraOp Intraoperative Assessment Entry 1 Handoff Method Bedside/Face to face, Online nursing summary Valid History / Yes Physical in Chart Preoperative Yes Checklist Reviewed/Evaluated Allergies Reviewed Yes Patient is Latex No Sensitive Level of WDL Consciousness (WDL = Alert, Oriented to Person, Place, and Time) Skin Assessment No Verified Present Upon IVs Arrival to OR Last Modified By: Sukumar Casanova RN 11/28/18 10:21:06 [facility] IntraOp Intraoperative Equipment Entry 1 Type Monitoring Equipment Intraop Monitoring Electrocardiogram Three lead placement (ECG) Electrode Placement Blood Pressure Non-Invasive BP Device Source Blood Pressure Arm, right upper Location Pulse Oximeter Hand, left Probe Site Antiembolic Devices Scopes Photo/Video Documentation Last Modified By: Sukumar Casanova RN 11/28/18 10:21:34 [facility] IntraOp Patient Positioning Entry 1 Procedure Esophagogastroduodenosco [...] Modified By: Sukumar Casanova RN 11/28/18 10:20:33 [facility] IntraOp Sign In Entry 1 Patient, Site, [...] Modified By: Sukumar Casanova RN 11/28/18 10:22:31 [facility] IntraOp Sign Out Entry 1 RN Confirmation [...] Modified By: Sukumar Casanova RN 11/28/18 11:00:01 [facility] IntraOp Sign Out Audit 11/28/18 11:00:01 Strip Machine Operator: WILL Modifier: WILL <+> 1 RN Sign Out Signature Date/Time [facility] IntraOp Surgical Procedures Entry 1 Procedure Esophagogastroduodenosco py Additional (EGD WITH CONTROL OF Procedure BLEEDING) Description Primary Procedure Yes Primary Surgeon SAMAN BERNSTEIN MD-TAO Start 11/28/18 10:19:00 Stop 11/28/18 10:33:00 Anesthesia Type General Specialty SN Gastroenterology Wound Class II - Clean-Contaminated Last Modified By: Sukumar Casanova RN 11/28/18 10:59:52 [facility] IntraOp Surgical Procedures Audit 11/28/18 10:59:52 Strip Machine Operator: WILL Modifier: WILL 1 <*> Procedure Esophagogastroduodenoscopy 1 <+> Specialty 11/28/18 10:59:43 Strip Machine Operator: WILL Modifier: WILL <+> 1 Start <+> 1 Stop [facility] IntraOp Temp Regulation Devices Entry 1 Temp Regulation Temperature Warm blankets Regulation Device Temperature Full body Regulation Site Last Modified By: Sukumar Casanova RN 11/28/18 10:26:13 [facility] IntraOP Time Out Entry 1 Procedure to [...] Labeled and Displayed Last Modified By: Sukumar aCsanova RN 11/28/18 10:21:53 [facility] IntraOP Time Out Audit 11/28/18 10:21:53 Strip Machine Operator: WILL Modifier: WILL 1 <+> Time Out Pause Time 1 <*> Procedure to be Performed Esophagogastroduodenoscopy Case Comments <None> Finalized By: JODI PITT Document Signatures Signed By: Sukumar Casanova RN 11/28/18 11:00 JODI PITT 11/30/18 09:14 Unfinalized History Date/Time Username Reason for Unfinalizing Freetext Reason for Unfinalizing 11/30/18 09:13 [email or web address] Correct Billing Electronically signed by Parveen [facility] Conversion Crop Adjuster Cerner at 12/08/2022 12:19 PM CDT documented in this encounter Plan of Treatment Not on file documented as of this encounter Visit Diagnoses Not on filedocumented in this encounter
--- OUTSIDE RECORDS SUMMARY | 2025-05-08 12:58 | XMS_ITS | Encounter Summary ---
Author Organization [employer] ([place], [place], [place], [place]) Address [address] [place] [address] Care Team Providers Care Radar Scientist Name Role Phone Unavailable Primary Care Provider Unavailabl e Encounter Details Date Type Department Care Team (Late st Contact Info) Description 11/16/2018 Transcribed Document [facility] [place] Medicine [address] [place] [address] ProviderErika MD [address] [id number] Social History Tobacco Use Types Packs/Day Years [...] Medical. Performed by: JULIO CESAR CARVALHO MD-CAT. Personnel Placement Specialist: ERASMO LÓPEZ PA. Notes: Procedure: Resection and [...]
--- OUTSIDE RECORDS SUMMARY | 2025-05-08 12:58 | XMS_ITS | Encounter Summary ---
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
--- OUTSIDE RECORDS SUMMARY | 2025-05-08 12:58 | XMS_ITS | Encounter Summary ---
Author Organization [employer] ([place], [place], [place], [place]) Address [address] [place] [address] Care Team Providers Care Field Marketer Name Role Phone Unavailable Primary Care Provider Unavailabl e Encounter Details Date Type Department Care Team (Late st Contact Info) Description 11/28/2018 Transcribed Document [facility] [place] Family Medicine [address] [place] [address] ProviderErika MD [address] [place], [place] [id number] Social History Tobacco Use Types Packs/Day Years [...] 1940 Associated Diagnoses: CAD (coronary artery disease), elim ir[place] coronary artery; Thrombocytopenia; Coronary artery disease; [...] mg, Oral, At Bedtime saliva substitutes: 1 [place], Buccal, Q2H, PRN: Other (See Comment) warfarin: [...] Q1H saliva substitute liq 59 mL 1 [place], Buccal, Q2H Problem list: Medical Aneurysm, thoracic aortic / SNOMED CT 4401276740 / Confirmed Aortic valve insufficiency / SNOMED CT 371186286 / Confirmed Arthritis / SNOMED CT 9627084 / Confirmed At risk for sleep apnea / IMO [id number] / Confirmed CAD (coronary artery disease) / SNOMED CT 78655004 / Confirmed HTN - Hypertension / SNOMED CT 0314417626 / Confirmed Hypothyroidism / SNOMED CT 55979689 / Confirmed Frequent urination / SNOMED CT 150047295 / Confirmed Nocturia / SNOMED CT 191813633 / Confirmed Prostate stricture / SNOMED CT 12990196 / Confirmed, Active Problems (13) Aneurysm, thoracic [...] swelling - improved today. Integumentary: Warm, Dry, [place], incision is C/D/I. Neurologic: Alert, Oriented, left [...] (Current Encounter/Past 24 Hours) PT 20.8 Second(s) IA 11/28/2018 09:08 PTT 27.6 Second(s) 11/28/2018 08:53 INR 2.0 IA 11/28/2018 09:08 . Impression and Plan Plan: [...] of discharge- CM has sent information to [facility] -Transfer [facility] 11/24/18 -POD#8 -Awaiting transfer to [facility] -Awaiting response from [facility] 11/25/18 -left upper extremity venous doppler - doppler this am positive for LUE DVT - will start coumadin and heparin bridge -awaiting [facility] 11/26/18 -Heparin drip and coumadin for LUE DVT Left arm swelling improved today INR 1.1 today, INR goal 2-3 Possibly transfer to [facility] this weekend 11/27/18: Left arm swelling continues to improve Continues on Coumadin and heparin bridge INR: 1.4 (1.1 yesterday) goal: 2 to 3 [facility] soon,? Tomorrow 11/28/18 BP in 70s-80s this [...] Prophylaxis: SCDs Diagnosis CAD (coronary artery disease), elim ira coronary artery - Admitting, Medical. Thrombocytopenia [...]
--- OUTSIDE RECORDS SUMMARY | 2025-05-08 12:58 | XMS_ITS | Encounter Summary ---
Author Organization [employer] ([place], [place], [place], [place]) Address [address] [place] [address] Care Team Providers Care Patrol Inspector Name Role Phone Unavailable Primary Care Provider Unavailabl e Encounter Details Date Type Department Care Team (Late st Contact Info) Description 11/16/2018 Transcribed Document [facility] [place] [address] [place] [address] ProviderErika MD [address] [place] [address] Social History Tobacco Use Types [...] Ambulatory Legal Guardian : Spouse Support Person/Patient Ice Cream Scooper : Yes Support Person/Pt Rep Name : Connie- Sumeet - son Support Person/Pt Rep Contact Information : [phone] home [phone] - cell Want Family/Rep/Phys Notified of Admit [...] : Patient, Medical Record Primary Language : Irish Preferred Communication Mode : Verbal Communication Barrier [...] Scale Risk Level : 25-45 Medium Risk Sieper Fall Interventions : Adequate lighting, Assistive devices [...] Source : Measured Height Entry Format : [place] Height, Feet : 6 ft(Converted to: 183 cm, 72 Inch) Height, Inches : 1 Inch(Converted to: 0 ft 1 Inch, 2.54 cm) Clinical Height : 185.42 cm Weight Source : Standing scale Weight Entry Format : [place] Clinical Dosing Weight : 79.23 kg Weight, Pounds : 174 lb Weight, Ounces : 5 oz Body Surface Area (BSA) : 2.03 m2 Body Mass Index : 23 kg/m2 Sedan Body Weight : 79 kg FROY NEIL [...]
--- OUTSIDE RECORDS SUMMARY | 2025-05-08 12:58 | XMS_ITS | Encounter Summary ---
Author Organization [employer] ([place], [place], [place], [place]) Address [address] [place] [address] Care Team Providers Care Supervisor Compressed Yeast Name Role Phone Unavailable Primary Care Provider Unavailabl e Encounter Details Date Type Department Care Team (Late st Contact Info) Description 11/16/2018 Transcribed Document [facility] [address] [place] [address] Niles Nunez MD [address] [place], [place] [id number] Social History Tobacco Use Types Packs/Day Years [...]
--- OUTSIDE RECORDS SUMMARY | 2025-05-08 12:58 | XMS_ITS | Encounter Summary ---
Author Organization [employer] ([place], [place], [place], [place]) Address [address] [place] [address] Care Team Providers Care Retail Financial Analyst Name Role Phone Unavailable Primary Care Provider Unavailabl e Encounter Details Date Type Department Care Team (Late st Contact Info) Description 11/28/2018 Transcribed Document [facility] [place] [address] [place] [address] ProviderErika MD [address] [place] [address] Social History Tobacco Use Types [...] access. 20R shoulder x1 attempt using vein hog stomach preparer. 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
--- OUTSIDE RECORDS SUMMARY | 2025-05-08 12:58 | XMS_ITS | Encounter Summary ---
Author Organization [employer] ([place], [place], [place], [place]) Address [address] [place] [address] Care Team Providers Care Commercial Real Estate Agent Name Role Phone Unavailable Primary Care Provider Unavailabl e Encounter Details Date Type Department Care Team (Late st Contact Info) Description 11/28/2018 Transcribed Document [facility] [place] Medicine [address] [place] [address] ProviderErika MD [address] [place], [...]
--- OUTSIDE RECORDS SUMMARY | 2025-05-08 12:58 | XMS_ITS | Encounter Summary ---
Author Organization [employer] ([place], [place], [place], [place]) Address [address] [place] [address] Care Team Providers Care Creative Manager Name Role Phone Unavailable Primary Care Provider Unavailabl e Encounter Details Date Type Department Care Team (Late st Contact Info) Description 11/28/2018 Transcribed Document [facility] [place] Family Medicine [address] [place] [address] ProviderErika MD [address] [place] [address] Social History Tobacco Use Types [...]
--- OUTSIDE RECORDS SUMMARY | 2025-05-08 12:58 | XMS_ITS | Encounter Summary ---
Author Organization [employer] ([place], [place], [place], [place]) Address [address] [place] [address] Care Team Providers Care Leather Piece Inspector Name Role Phone Unavailable Primary Care Provider Unavailabl e Encounter Details Date Type Department Care Team (Late st Contact Info) Description 11/28/2018 Transcribed Document [facility] [place] Medicine [address] [place] [address] ProviderErika MD [address] [place] [address] Social History Tobacco Use Types [...] Spiritual Care Reason for Visit : Other: CUSHION GUM APPLICATOR Intervention/Comment/Summary Points : Pt fell back to sleep after RNs finished assessing pt. No needs at this time. Presybeterian Preference : Yazidi MALU SHEPARD Chaplain-Non Cert - 11/28/2018 5:34 EDT Electronically signed by Christina Saini Conversion Photographic Machine Operator Felipe at 12/08/2022 12:11 PM CDT documented in this encounter Plan of Treatment Not on file documented as of this encounter Visit Diagnoses Not on filedocumented in this encounter
--- OUTSIDE RECORDS SUMMARY | 2025-05-08 12:58 | XMS_ITS | Encounter Summary ---
Author Organization [employer] ([place], [place], [place], [place]) Address [address] [place] [address] Care Team Providers Care Hematology Oncology Consultant Name Role Phone Unavailable Primary Care Provider Unavailabl e Encounter Details Date Type Department Care Team (Late st Contact Info) Description 11/16/2018 Transcribed Document [facility] [place] Family [place] [address] [place] [address] ProviderErika MD [address] [place] [address] Social History Tobacco Use Types [...]
--- OUTSIDE RECORDS SUMMARY | 2025-05-08 12:58 | XMS_ITS | Encounter Summary ---
Author Organization [employer] ([place], [place], [place], [place]) Address [address] [place] [address] Care Team Providers Care Vice President Of Talent Acquisition Name Role Phone Unavailable Primary Care Provider Unavailabl e Encounter Details Date Type Department Care Team (Late st Contact Info) Description 11/16/2018 Transcribed Document [facility] [place] [address] [place] [address] ProviderErika MD [address] [place] [address] Social History Tobacco Use Types Packs/Day Years Used Date Smoking Tobacco: Never Assessed Sex and Gender Information Value Date Recorded Sex Assigned at Not on file Legal Sex Male 5:03 PM CDT Gender Identity Not on file Sexual Orientation Not on file documented as of this encounter Miscellaneous Notes * [employer]ner Conversion Note - Erika ProviderMD - 11/16/2018 7:30 AM CDT [facility] Main OR Preop Summary Primary Physician: JULIO CESAR CARVALHO MD-CAT Finalized Date/Time: 11/16/18 07:12:04 Pt. Name: DOTTIE VILLASENOR D.O.B./Sex: 1940 Male Med Rec #: [id number] Physician: JULIO CESAR CARVALHO MD-CAT Financial #: [id number] Pt. Type: I Room/Bed: ASA/8 Admit/Disch: 11/16/18 06:45:00 - Institution: [facility] PreOp Case Times Entry 1 In Preop [...]
--- OUTSIDE RECORDS SUMMARY | 2025-05-08 12:58 | XMS_ITS | Encounter Summary ---
Author Organization [employer] ([place], [place], [place], [place]) Address [address] [place] [address] Care Team Providers Care Needle Setter Name Role Phone Unavailable Primary Care Provider Unavailabl e Encounter Details Date Type Department Care Team (Late st Contact Info) Description 11/21/2018 Transcribed Document [facility] [place] Family Medicine [address] [place] [address] ProviderErika MD [address] [place] [address] Social History Tobacco Use Types [...] SHERRIE FUENTES RN - 11/21/2018 5:38 EDT Electronically signed by Christina Saini Conversion Business English Instructor Cerner at 12/08/2022 12:24 PM CDT documented in this encounter Plan of Treatment Not on file documented as of this encounter Visit Diagnoses Not on filedocumented in this encounter
--- OUTSIDE RECORDS SUMMARY | 2025-05-08 12:58 | XMS_ITS | Encounter Summary ---
Author Organization [employer] ([place], [place], [place], [place]) Address [address] [place] [address] Care Team Providers Care Pickler Helper Name Role Phone Unavailable Primary Care Provider Unavailabl e Encounter Details Date Type Department Care Team (Late st Contact Info) Description 11/20/2018 Transcribed Document [facility] [place] Family Medicine [address] [place] [address] ProviderErika MD [address] [place] [address] Social History Tobacco Use Types [...] TORREY ZUNIGA SLP General Information Visit Type, SQL ENGINEER : Initial evaluation Patient Orders : SQL ENGINEER Fxnl Limitation Documentation x 1 -111 Start: 11/20/18 8:39:00 EDT - SYSTEM, SYSTEM SQL ENGINEER Bedside Swallow Evaluation - Start: 11/20/18 8:38:00 EDT, Routine, For Swallow Eval and Treat -111 MICHAEL RODRIGUEZ MD Ordering Provider : MICHAEL RODRIGUEZ MD Admission Date : Admission Date/Time: 11/16/18 06:45:00 Personal Devices : Personal Devices No Devices Recorded Assistive Devices : Assistive Devices No Devices Recorded Active Diagnoses : 11/17/2018 00:00 Atherosclerotic heart disease of [place] coronary artery without angina pectoris 11/17/2018 00:00 Essential (primary) hypertension 11/17/2018 00:00 Hypothyroidism, unspecified 11/17/2018 00:00 Nonrheumatic aortic (valve) insufficiency 11/17/2018 00:00 Restless legs syndrome 11/17/2018 00:00 Thoracic aortic aneurysm, without rupture 11/17/2018 00:00 Thrombocytopenia, unspecified 11/16/2018 00:00 Atherosclerotic heart disease of [place] coronary artery without angina pectoris 11/16/2018 00:00 Nonrheumatic aortic (valve) insufficiency 11/16/2018 00:00 Thoracic aortic aneurysm, without rupture Therapy Diagnosis, SQL ENGINEER : overt signs and symptoms of aspiration at bedside Previous Speech/Language Evaluations : N/A Previous Swallow Precautions : N/A Previous Cognitive Evaluations : N/A Diet/Intake Prior to Current Admission : Regular/thin Diet/Intake During Current Admission : NPO Intubation Comment, SQL ENGINEER : 11/16-11/17 Vital Signs RTF : [...] : Nasal cannula 3 L/min TORREY ZUNIGA SQL ENGINEER - 11/20/2018 9:21 EDT General Status Patient Received Status, SQL ENGINEER : Long sitting in bed Patient Left Status, SQL ENGINEER : Long sitting in bed TORREY [...] Hoarse, Other: Weak Resonance Types : Appropriate SQL ENGINEER Cough : Weak Facial Appearance: : [...] noted with thin via straw and puree. SQL ENGINEER unable to determine safe diet at bedside, recommend FEES to further assess swallow function. Continue NPO with alternate means of nutrition and meds until FEES. SQL ENGINEER discussed results and recs with patient and family. TORREY ZUNIGA SLP - 11/20/2018 9:26 EDT Impressions, BS Swallow : Signs/Symptoms of pharyngeal dysphagia Swallowing Outcome Measures : Functional Oral Intake Scale (FOIS) Functional Oral Intake Scale (FOIS) : Level I TORREY ZUNIGA SQL ENGINEER - 11/20/2018 9:21 EDT Swallow Recommendations Recommended Diet Type, SwRec : Non-oral feeding, NPO Swallow Position, SwRec : Upright 90 degrees Recommended Med Present, SwRec : Non-oral Recommended Exam, Sw Rec : FEES Repeat Swallow Exam Timeframe : 1-3 days TORREY ZUNIGA SLP - 11/20/2018 9:26 EDT Therapy Indication Assessment SQL ENGINEER Indicated : Yes SQL ENGINEER Problem List : Impaired, Swallowing TORREY ZUNIGA SLP - 11/20/2018 9:26 EDT Swallow Plan/Goals Treatment Frequency, SQL ENGINEER : 4 times per wk Treatment Duration, SQL ENGINEER : Two weeks TORREY ZUNIGA SLP - 11/20/2018 9:26 EDT Swallow LTG Grid SQL ENGINEER [employer] Barista Goal #1 Swallow LTG : Establish safe [...] TORREY ZUNIGA SLP - 11/20/2018 9:26 EDT SQL ENGINEER Education Assessment Grid 1 Diet Recommendation : Verbalizes understanding Dysphagia : Verbalizes understanding Non-Oral Nutrition : Verbalizes understanding NPO : Verbalizes understanding TORREY ZUNIGA SLP - 11/20/2018 9:26 EDT SQL ENGINEER Education Assessment Grid 2 Treatment Plan : Verbalizes understanding TORREY ZUNIGA SLP - 11/20/2018 9:[address] [facility] SQL ENGINEER Charges Evaluation Swallowing Function : 1 TORREY ZUNIGA SLP - 11/20/2018 9:26 EDT Functional Limitation Reporting, SQL ENGINEER Functional Limitation Visit Type, SQL ENGINEER : Initial evaluation Severity Determination Method, SQL ENGINEER : Clinical Judgment, Swallowing Swallow G8996 - Current Mod, SQL ENGINEER : 80 - 99% impaired, limited or restricted (CM) Swallow G8997 - Proj Goal Mod, SQL ENGINEER : 1 - 19% impaired, limited or restricted (CI) TORREY ZUNIGA SLP - 11/20/2018 9:26 EDT Electronically signed by Parveen [facility] Conversion Exercise Scientist Cerner at 12/08/2022 12:30 PM CDT documented in this encounter Plan of Treatment Not on file documented as of this encounter Visit Diagnoses Not on filedocumented in this encounter
--- OUTSIDE RECORDS SUMMARY | 2025-05-08 12:58 | XMS_ITS | Encounter Summary ---
Author Organization [employer] ([place], [place], [place], [place]) Address [address] [place] [address] Care Team Providers Care Hat Brim Curler Name Role Phone Unavailable Primary Care Provider Unavailabl e Encounter Details Date Type Department Care Team (Late st Contact Info) Description 11/21/2018 Transcribed Document [facility] [place] Family Medicine [address] [place] [address] ProviderErika MD [address] [place] [address] Social History Tobacco Use Types [...] On: 11/21/2018 9:37 EDT by José Miguel rTan, [facility] Phone Call for Consults Consult Phone Call/Page Attempt : Other: Nurse spoke to Dr. Amaro. José Miguel Tran [facility] - 11/21/2018 9:40 EDT documented in this encounter Plan of Treatment Not on file documented as of this encounter Visit Diagnoses Not on filedocumented in this encounter
--- OUTSIDE RECORDS SUMMARY | 2025-05-08 12:58 | XMS_ITS | Encounter Summary ---
Author Organization [employer] ([place], [place], [place], [place]) Address [address] [place] [address] Care Team Providers Care Transmission Superintendent Name Role Phone Unavailable Primary Care Provider Unavailabl e Encounter Details Date Type Department Care Team (Late st Contact Info) Description 11/20/2018 Transcribed Document [facility] [place] [address] [place] [address] ProviderErika MD [address] [place] [address] Social History Tobacco Use Types Packs/Day Years Used Date Smoking Tobacco: Never Assessed Sex and Gender Information Value Date Recorded Sex Assigned at Not on file Legal Sex Male 5:03 PM CDT Gender Identity Not on file Sexual Orientation Not on file documented as of this encounter Miscellaneous Notes * [employer]ner Conversion Note - Erika ProviderMD - 11/20/2018 9:36 AM CDT BALANCE STAFF INSPECTOR Note Entered On: 11/24/2018 13:28 EDT Performed On: 11/24/2018 13:19 EDT by MAMTA SOLO, BALANCE STAFF INSPECTOR Dysphagia Exercise Technique Dysphagia Therapy/Treatment Type #1 [...] Technique PO Trial #1 Consistency Trialed : [place] Oral Symptoms : None observed Pharyngeal Signs [...] 13:19 EDT Swallow Plan/Goals Swallow LTG Grid BALANCE STAFF INSPECTOR J2Ee Application Developer Goal #1 BALANCE STAFF INSPECTOR J2Ee Application Developer Goal #2 Swallow LTG : Establish safe [...] Date Met : 11/22/2018 EDT MAMTA SOLO, [facility] - 11/24/2018 13:19 EDT MAMTA SOLO BALANCE STAFF INSPECTOR - 11/24/2018 13:19 EDT MAMTA SOLO BALANCE STAFF INSPECTOR - 11/24/2018 13:[address] [facility] - 11/24/2018 13:19 EDT LTG Lang/Comm/Cog LTG BALANCE STAFF INSPECTOR Jail Goal 1 J2Ee Application Developer Goal 2 Goals : Improved spoken language expression at the time of discharge Improved auditory/spoken language comprehension at the time of discharge Status : Initial Initial MAMTA SOLO [facility] - 11/24/2018 13:19 EDT MAMTA SOLO SLP - 11/24/2018 13:19 EDT STG Lang_Comm_Cog Motor Speech STG Grid Goal #1 Activity : Improve intelligibility of speech Status : Initial MAMTA SOLO [facility] - 11/24/2018 13:19 EDT Auditory Comprehension Grid Goal #1 Goal #2 Activity : Follow directions, 3 step commands simple Comprehend paragraph complex MAMTA SOLO [facility] [place] - 11/24/2018 13:[address] [facility] - 11/24/2018 13:19 EDT Verbal Expression STG Grid Goal #1 Activity : Generate items in a category MAMTA SOLO [facility] - 11/24/2018 13:19 EDT Reading Comprehension STG Grid Goal #1 Activity : Visual perception deficits MAMTA SOLO [facility] - 11/24/2018 13:19 EDT Attention STG Grid Goal #1 Activity : Other: Probe Status : Goal met Date Met : 11/24/[address] [facility] - 11/24/2018 13:19 EDT Memory STG Grid Goal #1 Goal #2 Goal #3 Activity : Other: Probe Improve short term functional delayed Improve short term working memory Status : Goal met Initial Initial Date Met : 11/24/[address] [facility] - 11/24/2018 13:[address] [facility] - 11/24/2018 13:[address] [facility] - 11/24/2018 13:19 EDT Problem Solving STG [...] SOLO SLP - 11/24/2018 13:19 EDT Subjective/Assessment/Plan BALANCE STAFF INSPECTOR Patient Concern : Pt was awake and lying in bed. Agreeable to tx. BALANCE STAFF INSPECTOR Therapy/Treatment Asmt Cmnt : Pt seen for speech and dysphagia tx. Great participation in tx. Requires continuous cues for accurate completion of timing exercises. No overt pharyngeal patterns with nectar liquids. Further cogntive probe completed. Pt presents with a moderate cognitive deficits characterized by impairments in memory, orientation, and problem solving. POC updated. BALANCE STAFF INSPECTOR Plan : Continue per POC. Repeat swallow study Thursday. MAMTA SOLO SLP - 11/24/2018 13:19 EDT Education Barriers To Learning : Cognitive deficit Individuals Taught : Patient Readiness to Learn : Cooperative Readiness to Learn : Explanation MAMTA SOLO SLP - 11/24/2018 13:19 EDT BALANCE STAFF INSPECTOR Education Assessment Grid 1 Evaluation Results : Verbalizes understanding MAMTA SOLO SLP - 11/24/2018 13:19 EDT BALANCE STAFF INSPECTOR Education Assessment Grid 2 Treatment Plan : Verbalizes understanding MAMTA SOLO SLP - 11/24/2018 13:[address] [facility] BALANCE STAFF INSPECTOR Charges Speech Therapy : 1 Treatment-Swallowing : 1 MAMTA SOLO SLP - 11/24/2018 13:19 EDT Anticipated Discharge Needs, BALANCE STAFF INSPECTOR Anticipated Discharge to OT : Rehab, high intensity Recommend Continued Therapy at Discharge : Yes MAMTA SOLO SLP - 11/24/2018 13:19 EDT documented in this encounter Plan of Treatment Not on file documented as of this encounter Visit Diagnoses Not on filedocumented in this encounter
--- OUTSIDE RECORDS SUMMARY | 2025-05-08 12:58 | XMS_ITS | Encounter Summary ---
Author Organization [employer] ([place], [place], [place], [place]) Address [address] [place] [address] Care Team Providers Care Airbrush Artist Name Role Phone Unavailable Primary Care Provider Unavailabl e Encounter Details Date Type Department Care Team (Late st Contact Info) Description 11/20/2018 Transcribed Document [facility] Pulm & Critical Care Medicine [address] [place] [address] Eloy Rodrigues MD [address] [place], [place] [id number] Social History Tobacco Use Types Packs/Day Years [...] versus obesity (body mass index really 23). Eoly Rodrigues M.D. Dict: 11/20/2018 16:32:27 Trans: 11/20/2018 22:52:43 Processed: 11/22/2018 09:57:30 [place] CC1: Eloy Rodrigues M.D. documented in this encounter Plan of Treatment Not on file documented as of this encounter Visit Diagnoses Not on filedocumented in this encounter
--- OUTSIDE RECORDS SUMMARY | 2025-05-08 12:58 | XMS_ITS | Encounter Summary ---
Author Organization [employer] ([place], [place], [place], [place]) Address [address] [place] [address] Care Team Providers Care Press Department Manager Name Role Phone Unavailable Primary Care Provider Unavailabl e Encounter Details Date Type Department Care Team (Late st Contact Info) Description 11/28/2018 Transcribed Document [facility] [place] [address] [place] [address] ProviderErika MD [address] [place], [place] [id number] Social History Tobacco Use Types Packs/Day Years [...]
--- OUTSIDE RECORDS SUMMARY | 2025-05-08 12:58 | XMS_ITS | Encounter Summary ---
Author Organization [employer] ([place], [place], [place], [place]) Address [address] [place] [address] Care Team Providers Care Registered Dietetic Technician Name Role Phone Unavailable Primary Care Provider Unavailabl e Encounter Details Date Type Department Care Team (Late st Contact Info) Description 11/16/2018 Transcribed Document [facility] [place] Family Medicine [address] [place] [address] ProviderErika MD [address] [place] [address] Social History Tobacco Use Types [...] On: 11/16/2018 12:27 EDT by [facility]att [facility] Phone Call for Consults Consult Phone Call/Page Attempt : First call [facility] 11/16/2018 13:34 EDT documented in this encounter Plan of Treatment Not on file documented as of this encounter Visit Diagnoses Not on filedocumented in this encounter
--- OUTSIDE RECORDS SUMMARY | 2025-05-08 12:59 | XMS_ITS | Encounter Summary ---
Author Organization [employer] ([place], [place], [place], [place]) Address [address] [place] [address] Care Team Providers Care Tomahawk Weapon System Operator Name Role Phone Unavailable Primary Care Provider Unavailabl e Encounter Details Date Type Department Care Team (Late st Contact Info) Description 11/26/2018 Transcribed Document [facility] [place] Family Medicine [address] [place] [address] ProviderErika MD [address] [place], [place] [id number] Social History Tobacco Use Types Packs/Day Years [...] 1940 Associated Diagnoses: CAD (coronary artery disease), [place] coronary artery; Thrombocytopenia; Coronary artery disease; HTN [...] swelling - improved today. Integumentary: Warm, Dry, [place], incision is C/D/I. Neurologic: Alert, left sided [...] to [facility] -Transfer to [facility] 11/24/18 -POD#8 -Awaiting transfer to [facility] -Awaiting response from [facility] 11/25/18 -left upper extremity venous doppler - doppler this am positive for LUE DVT - will start coumadin and heparin bridge -awaiting [facility] 11/26/18 -Heparin drip and coumadin for LUE DVT Left arm swelling improved today INR 1.1 today, INR goal 2-3 Possibly transfer to [facility] this weekend EF 55-60% per echo 11/16/18 DVT Prophylaxis: SCDs Diagnosis CAD (coronary artery disease), [place] coronary artery - Admitting, Medical. Thrombocytopenia - [...] Medical. Electronically signed by Michele Saini Conversion Bevel Gear Generator Operator Cerner at 12/08/2022 12:25 PM CDT documented in this encounter Plan of Treatment Not on file documented as of this encounter Visit Diagnoses Not on filedocumented in this encounter
--- OUTSIDE RECORDS SUMMARY | 2025-05-08 12:59 | XMS_ITS | Encounter Summary ---
Author Organization [employer] ([place], [place], [place], [place]) Address [address] [place] [address] Care Team Providers Care Mold Setter Name Role Phone Unavailable Primary Care Provider Unavailabl e Encounter Details Date Type Department Care Team (Late st Contact Info) Description 11/05/2018 Transcribed Document [facility] [place] [address] [place] [address] ProviderErika MD [address] [place] [address] Social History Tobacco Use Types [...] 11/05/2018 12:46 EDT Electronically signed by Parveen [facility] Conversion President Commercial Bank Cerner at 12/08/2022 12:20 PM CDT documented in this encounter Plan of Treatment Not on file documented as of this encounter Visit Diagnoses Not on filedocumented in this encounter
--- OUTSIDE RECORDS SUMMARY | 2025-05-08 12:59 | XMS_ITS | Encounter Summary ---
Author Organization [employer] ([place], [place], [place], [place]) Address [address] [place] [address] Care Team Providers Care Merchandising Team Lead Name Role Phone Unavailable Primary Care Provider Unavailabl e Encounter Details Date Type Department Care Team (Late st Contact Info) Description 11/19/2018 Transcribed Document [facility] [place] Medicine [address] [place] [address] ProviderErika MD [address] [place] [address] Social History Tobacco Use Types [...] TF regimen to add fiber. EST NEEDS: 3994-3786 kcal (25-30kcal/kg), 95g pro (1.2g/kg) 1. Change TF to Jevity 1.5 @ 60 ml/hr + 1 bottle [id number] daily (Provides 2040 kcal; 99 gm pro) Goal: meet est needs 2. Monitor alertness and appropriateness for BLOCK CUTTER eval Goal: est safe po diet 3. Weigh pt 2x weekly Goal: no sig weight changes High Risk [address], LD - 11/19/2018 12:43 EDT Electronically signed by Parveen, [facility] Conversion Die Storage Clerk Cerner at 12/08/2022 12:18 PM CDT documented in this encounter Plan of Treatment Not on file documented as of this encounter Visit Diagnoses Not on filedocumented in this encounter
--- OUTSIDE RECORDS SUMMARY | 2025-05-08 12:59 | XMS_ITS | Encounter Summary ---
Author Organization [employer] ([place], [place], [place], [place]) Address [address] [place] [address] Care Team Providers Care Entry Level Software Developer Name Role Phone Unavailable Primary Care Provider Unavailabl e Encounter Details Date Type Department Care Team (Late st Contact Info) Description 11/15/2018 Transcribed Document [facility] [place] [address] [place] [address] ProviderErika MD [address] [place] [address] Social History Tobacco Use Types [...] Source : Measured Height Entry Format : [place] Height, Feet : 6 ft(Converted to: 183 cm, 72 Inch) Height, Inches : 1 Inch(Converted to: 0 ft 1 Inch, 2.54 cm) Clinical Height : 185.42 cm Weight Source : Standing scale Weight Entry Format : [place] Clinical Dosing Weight : 79.23 kg Weight, Pounds : 174 lb Weight, Ounces : 5 oz Body Surface Area (BSA) : 2.03 m2 Body Mass Index : 23 kg/m2 [place] Body Weight : 79 kg ANGELA KEY [...] Ambulatory Legal Guardian : Spouse Support Person/Patient Hosiery Operator : Yes Support Person/Pt Rep Name : Connie- Sumeet - son Support Person/Pt Rep Contact Information : [phone] home [phone] - cell Want Family/Rep/Phys Notified of Admit : No Emergency Contact #1 : Connie Emergency Contact #1 Emergency Contact #1 Relationship : Emergency Contact #2 : Sumeet Emergency Contact #2 Emergency Contact #2 Relationship : son Information Obtained From : Patient, Medical Record Primary Language : Croatian Preferred Communication Mode : Verbal Communication Barrier : None Objects to Sharing Info w Family : No ANGELA EKY RN - 11/15/2018 13:52 EDT Aiden Scale [...] 11/15/2018 13:52 EDT Electronically signed by Parveen [facility] Conversion Batter Depositor Cerner at 12/08/2022 12:30 PM CDT documented in this encounter Plan of Treatment Not on file documented as of this encounter Visit Diagnoses Not on filedocumented in this encounter
--- OUTSIDE RECORDS SUMMARY | 2025-05-08 12:59 | XMS_ITS | Encounter Summary ---
Author Organization [employer] ([place], [place], [place], [place]) Address [address] [place] [address] Care Team Providers Care Parts Order And Stock Clerk Name Role Phone Unavailable Primary Care Provider Unavailabl e Encounter Details Date Type Department Care Team (Late st Contact Info) Description 11/19/2018 Transcribed Document [facility] Cardiology [address] [place] [address] Lc Armendariz MD [address] [facility] [address] [place] [address] Social History Tobacco Use Types [...] mg, Oral, At Bedtime saliva substitutes: 1 [place], Buccal, Q2H, PRN: Other (See Comment) sodium [...] of motion, Normal strength. Integumentary: Warm, Dry, [place]. Neurologic: Alert, Oriented. Psychiatric: Cooperative, Appropriate mood & affect. 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 11/16/18 Metabolic encephalopathy post operative HTN HLD [...]
--- OUTSIDE RECORDS SUMMARY | 2025-05-08 12:59 | XMS_ITS | Encounter Summary ---
Author Organization [employer] ([place], [place], [place], [place]) Address [address] [place] [address] Care Team Providers Care Interpreter And Translator Name Role Phone Unavailable Primary Care Provider Unavailabl e Encounter Details Date Type Department Care Team (Late st Contact Info) Description 11/26/2018 Transcribed Document [facility] [place] [address] [place] [address] ProviderErika MD [address] [place] [address] Social History Tobacco Use Types [...] (not seen on 11/25/18) followed up with [facility] today regarding possible admission - plan [...] Care Management Note Report : LUCIE, ODALYS, Rn-Meat Specialist - 11/24/18 13:22:19 11/24/18 Andra from [facility] called to let me know they started a precert on this pt. CF ODALYS FAULKNER, Rn-Meat Specialist - 11/22/18 13:56:32 11/22/18 Pt has had a cva. Spoke to his Connie and son Sumeet at the bedside. Pt is lfacid on the left side. Discussed the need for STR and they decided on [facility]. Sent pt info via [employer] to [facility]. CF Documentation Status Complete : Yes ANGELA NAIR, Production Clerk - 11/26/2018 11:16 EDT Electronically signed by Parveen [facility] Conversion Clay Digger Cerner at 12/08/2022 12:12 PM CDT documented in this encounter Plan of Treatment Not on file documented as of this encounter Visit Diagnoses Not on filedocumented in this encounter
--- OUTSIDE RECORDS SUMMARY | 2025-05-08 12:59 | XMS_ITS | Encounter Summary ---
Author Organization [employer] ([place], [place], [place], [place]) Address [address] [place] [address] Care Team Providers Care Hereditary Cancer Program Coordinator Name Role Phone Unavailable Primary Care Provider Unavailabl e Encounter Details Date Type Department Care Team (Late st Contact Info) Description 11/05/2018 Transcribed Document [facility] [place] [address] [place] [address] ProviderErika MD [address] [place] [address] Social History Tobacco Use Types [...] Jose MD - 11/05/2018 12:48 PM CDT [address] [address] Patient Copy Patient Information: Name: DOTTIE VILLASENOR Current Date: 11/05/2018 12:48:54 : 1940 Patient Address: [address] [place] [id number] Patient Attending Physician: LEYLA ARMENDARIZ MD-CAR Primary Care Provider: DEMETRICE ARMIJO NP-JORGE Primary Care Provider Discharge Diagnosis: Weight on Admission: 170 lb, 0 oz Comment: Follow-up Instructions: With: Address: When: JULIO CESAR GAXIOLA [address] [place] [address], [address] [address] Business (1) 1:30 PM Comments: Follow up with Dr. Gaxiola , surgeon, October at 1:30 pm With: Address: When: JULIO CESAR [address] [place] [address] K Spine (1) 1:15 PM Comments: Follow up with [...] you are awake and alert. ??? Take bxxi-bmo-mkothqj and prescription medicines only as told by [...] 05/31/2014 Document Revised: 01/12/2017 Document Reviewed: 11/29/2016 [employer] Interactive Patient Education ? 2017 [employer]. Radial Site Care Introduction Refer to this [...] 02/26/2006 Document Revised: 01/15/2017 Document Reviewed: 01/11/2014 [employer] Interactive Patient Education ? 2017 [employer]. CIGARETTE SMOKING: The facts are clear, cigarette smoking will shorten your life. Smoking can cause many illnesses along the way. As a healthcare provider, we recommend that you stop smoking. Assistance with quitting is available by contacting 7-377-FIBU-NOW. This is a free resource providing counseling, [...] Be sure to sign up for the [employer] patient portal, which gives you 16/03 access to your medical information ??? including these discharge instructions ??? using your computer, smartphone, or tablet. Just go to [employer] to get started. Questions? Call . [facility] would like to thank you for allowing us to assist you with your healthcare needs. HAMILTON Jarvis ROBERT H, (or payable representative) have received the above patient education materials/instructions and have verbalized understanding: Patient Signature _ Date/Time Patient Fitness And Wellness Coordinator Signature (if needed) Date/Time Clinician/Hospital Fitness And Wellness Coordinator Signature (if needed) Date/Time Electronically signed by Parveen, [facility] Conversion Radiology Scheduler Cerner at 12/08/2022 12:14 PM CDT documented in this encounter Plan of Treatment Not on file documented as of this encounter Visit Diagnoses Not on filedocumented in this encounter
--- OUTSIDE RECORDS SUMMARY | 2025-05-08 12:59 | XMS_ITS | Encounter Summary ---
Author Organization [employer] ([place], [place], [place], [place]) Address [address] [place] [address] Care Team Providers Care Early Morning Name Role Phone Unavailable Primary Care Provider Unavailabl e Encounter Details Date Type Department Care Team (Late st Contact Info) Description 11/05/2018 Transcribed Document [facility] [place] Family Medicine [address] [place] [address] ProviderErika MD [address] [place] [address] Social History Tobacco Use Types [...]
--- OUTSIDE RECORDS SUMMARY | 2025-05-08 12:59 | XMS_ITS | Encounter Summary ---
Author Organization [employer] ([place], [place], [place], [place]) Address [address] [place] [address] Care Team Providers Care Drilling Engineering Manager Name Role Phone Unavailable Primary Care Provider Unavailabl e Encounter Details Date Type Department Care Team (Late st Contact Info) Description 11/05/2018 Transcribed Document [facility] [place] [address] [place] [address] ProviderErika MD [address] [place], [...]
--- OUTSIDE RECORDS SUMMARY | 2025-05-08 12:59 | XMS_ITS | Encounter Summary ---
Author Organization [employer] ([place], [place], [place], [place]) Address [address] [place] [address] Care Team Providers Care Heel Builder Machine Name Role Phone Unavailable Primary Care Provider Unavailabl e Encounter Details Date Type Department Care Team (Late st Contact Info) Description 11/19/2018 Transcribed Document [facility] [place] Medicine [address] [place] [address] ProviderErika MD [address] [place], [place] [id number] Social History Tobacco Use Types Packs/Day Years [...] 1940 Associated Diagnoses: CAD (coronary artery disease), [place] coronary artery; Thrombocytopenia; Coronary artery disease; HTN [...] S1, S2, No edema. Integumentary: Warm, Dry, [place], incision is C/D/I, He did not follow [...] Prophylaxis: SCDs Diagnosis CAD (coronary artery disease), [place] coronary artery - Admitting, Medical. Thrombocytopenia - [...]
--- OUTSIDE RECORDS SUMMARY | 2025-05-08 12:59 | XMS_ITS | Encounter Summary ---
Author Organization [employer] ([place], [place], [place], [place]) Address [address] [place] [address] Care Team Providers Care Coal Getter Name Role Phone Unavailable Primary Care Provider Unavailabl e Encounter Details Date Type Department Care Team (Late st Contact Info) Description 11/05/2018 Transcribed Document [facility] Cardiology [address] [place] [address] Lc Armendariz MD [address] [facility] [address] [place] [address] Social History Tobacco Use Types [...] 1940 Associated Diagnoses: None Author: LC ARMENDARIZ MD-[facility] Basic Information PCP: Sanjuana Valdez [...] All Problems Prostate stricture / SNOMED CT 70909181 / Confirmed HTN - Hypertension / SNOMED CT 3754884845 / Confirmed Hypothyroidism / SNOMED CT 64485098 / Confirmed Aneurysm / SNOMED CT 4476539142 / Confirmed Disorder of prostate / SNOMED CT 53353800 / Confirmed Thyroid disease / SNOMED CT 801572871 / Confirmed Restless legs syndrome / SNOMED CT 54437512 / Confirmed Cancer of skin of face / SNOMED CT 9297236240 / Confirmed At risk for sleep apnea / IMO 19935074 / Confirmed Resolved: Bladder stone / SNOMED CT 576606331 Histories No education data available. Social & Psychosocial Habits Alcohol 04/16/2017 Alcohol Use History, Social Habits No Alcohol Use in Last Twelve Months No Substance Abuse 04/16/2017 Recreational Drug Use History No Recreational Drug Use Last 12 Months No Tobacco 04/16/2017 Smoking Status Never smoker Past Medical History: Active HTN - Hypertension (7183371629) Hypothyroidism (73292001) Family History: Entire family history is negative. [...] of motion, Normal strength. Integumentary: Warm, Dry, [place]. Neurologic: Alert, Oriented. Psychiatric: Cooperative. Review / [...]
--- OUTSIDE RECORDS SUMMARY | 2025-05-08 12:59 | XMS_ITS | Encounter Summary ---
Author Organization [employer] ([place], [place], [place], [place]) Address [address] [place] [address] Care Team Providers Care Disk Sharpener Name Role Phone Unavailable Primary Care Provider Unavailabl e Encounter Details Date Type Department Care Team (Late st Contact Info) Description 11/27/2018 Transcribed Document [facility] [place] [address] [place] [address] ProviderErika MD [address] [place] [address] Social History Tobacco Use Types [...]
--- OUTSIDE RECORDS SUMMARY | 2025-05-08 12:59 | XMS_ITS | Encounter Summary ---
Author Organization [employer] ([place], [place], [place], [place]) Address [address] [place] [address] Care Team Providers Care Millwright Apprentice Name Role Phone Unavailable Primary Care Provider Unavailabl e Encounter Details Date Type Department Care Team (Late st Contact Info) Description 11/27/2018 Transcribed Document [facility] [place] [address] [place] [address] ProviderErika MD [address] [place], [place] [id number] Social History Tobacco Use Types Packs/Day Years [...] 1940 Associated Diagnoses: CAD (coronary artery disease), [place] coronary artery; Thrombocytopenia; Coronary artery disease; HTN [...] swelling - improved today. Integumentary: Warm, Dry, [place], incision is C/D/I. Neurologic: Alert, Oriented, left [...] (Current Encounter/Past 24 Hours) PT 14.8 Second(s) [place] 11/27/2018 07:36 PTT 55.8 Second(s) NH 11/26/2018 11:12 INR 1.4 [place] 11/27/2018 07:36 . Impression and Plan Plan: [...] time of discharge- has sent information to [facility] -Transfer to [facility] 11/24/18 -POD#8 -Awaiting transfer to [facility] -Awaiting response from [facility] 11/25/18 -left upper extremity venous doppler - doppler this am positive for LUE DVT - will start coumadin and heparin bridge -awaiting [facility] 11/26/18 -Heparin drip and coumadin for LUE DVT Left arm swelling improved today INR 1.1 today, INR goal 2-3 Possibly transfer to [facility] this weekend 11/27/18: Left arm swelling continues to improve Continues on Coumadin and heparin bridge INR: 1.4 (1.1 yesterday) goal: 2 to 3 [facility] soon,? Tomorrow EF 55-60% per echo 11/16/18 DVT Prophylaxis: SCDs Diagnosis CAD (coronary artery disease), [place] coronary artery - Admitting, Medical. Thrombocytopenia - [...]
--- OUTSIDE RECORDS SUMMARY | 2025-05-08 12:59 | XMS_ITS | Encounter Summary ---
Author Organization [employer] ([place], [place], [place], [place]) Address [address] [place] [address] Care Team Providers Care Director Of Manufacturing Operations Name Role Phone Unavailable Primary Care Provider Unavailabl e Encounter Details Date Type Department Care Team (Late st Contact Info) Description 11/05/2018 Transcribed Document [facility] [place] Family Medicine [address] [place] [address] ProviderErika MD [address] [place] [address] Social History Tobacco Use Types [...] Source : Stated Height Entry Format : [place] Height, Feet : 6 ft(Converted to: 183 cm, 72 Inch) Height, Inches : 1 Inch(Converted to: 0 ft 1 Inch, 2.54 cm) Clinical Height : 185.42 cm Weight Source : Standing scale Weight Entry Format : [place] Clinical Dosing Weight : 77.27 kg Weight, Pounds : 170 lb Body Surface Area (BSA) : 2.01 m2 Body Mass Index : 22.5 kg/m2 [place] Body Weight : 79 kg SRIRAM PATEL [...] Any Spiritual/Cultural Needs or Requests : No Worship Preference : Denominational SRIRAM PATEL RN - 11/05/2018 8:49 EDT [...] Obtained From : Patient Primary Language : Macedonian Preferred Communication Mode : Verbal Communication Barrier [...] Scale Risk Level : 0-24 Low Risk [place] Fall Interventions : Adequate lighting, Bed in [...] Oriented [place] Eye Opening Response : Spontaneous [place] Coma Score : 15 SRIRAM PATEL RN - 11/05/2018 8:49 EDT documented in this encounter Plan of Treatment Not on file documented as of this encounter Visit Diagnoses Not on filedocumented in this encounter
--- OUTSIDE RECORDS SUMMARY | 2025-05-08 12:59 | XMS_ITS | Encounter Summary ---
Author Organization [employer] ([place], [place], [place], [place]) Address [address] [place] [address] Care Team Providers Care Vacuum Frame Operator Name Role Phone Unavailable Primary Care Provider Unavailabl e Encounter Details Date Type Department Care Team (Late st Contact Info) Description 11/05/2018 Transcribed Document [facility] [place] Family [place] [address] [place] [address] ProviderErika MD [address] [place] [address] Social History Tobacco Use Types [...] you are awake and alert. ??? Take ofmt-nkk-lwvnuxt and prescription medicines only as told by [...] 05/31/2014 Document Revised: 01/12/2017 Document Reviewed: 11/29/2016 [employer] Interactive Patient Education ? 2017 [employer] Pulmonary Medicine Radial Site Care Introduction [...] 01/11/2014 Elsevier Interactive Patient Education ? 2017 [employer] documented in this encounter Plan of Treatment Not on file documented as of this encounter Visit Diagnoses Not on filedocumented in this encounter
--- OUTSIDE RECORDS SUMMARY | 2025-05-08 12:59 | XMS_ITS | Encounter Summary ---
Author Organization [employer] ([place], [place], [place], [place]) Address [address] [place] [address] Care Team Providers Care Aircraft Accessories Mechanic Name Role Phone Unavailable Primary Care Provider Unavailabl e Encounter Details Date Type Department Care Team (Late st Contact Info) Description 11/26/2018 Transcribed Document [facility] Family Medicine [address] [place] [address] ProviderErika MD [address] [place] [address] Social History Tobacco Use Types [...]
--- OUTSIDE RECORDS SUMMARY | 2025-05-08 12:59 | XMS_ITS | Encounter Summary ---
Author Organization [employer] ([place], [place], [place], [place]) Address [address] [place] [address] Care Team Providers Care Sausage Canner Name Role Phone Unavailable Primary Care Provider Unavailabl e Encounter Details Date Type Department Care Team (Late st Contact Info) Description 11/27/2018 Transcribed Document [facility] [place] [address] [place] [address] ProviderErika MD [address] [place] [address] Social History Tobacco Use Types [...]
--- OUTSIDE RECORDS SUMMARY | 2025-05-08 12:59 | XMS_ITS | Encounter Summary ---
Author Organization [employer] ([place], [place], [place], [place]) Address [address] [place] [address] Care Team Providers Care Flight Control Specialist Name Role Phone Unavailable Primary Care Provider Unavailabl e Encounter Details Date Type Department Care Team (Late st Contact Info) Description 11/26/[address] [facility] [place] Family Medicine [address] [place] [address] ProviderErika MD [address] [place] [address] Social History Tobacco Use Types [...] On: 11/26/2018 9:15 EDT by JOSSUE RODRÍGUEZ FEDERAL JUDGE General Information Visit Type, FEDERAL JUDGE : Re-Evaluation Patient Orders : FEDERAL JUDGE Fxoliver Limitation Documentation x 1 -111 Start: 11/25/18 10:29:25 EDT - SYSTEM, SYSTEM Speech Language Pathology Modified Barium Swallow Study - Start: 11/26/18 7:00:00 EDT, Routine, For Other (see special instructions), Dysphagia -111 GISSEL ZHANG PA FEDERAL JUDGE Fxnl Limitation Documentation - Start: 11/20/18 9:37:47 EDT, Continuous Order -111 SYSTEM, SYSTEM Speech Language Pathology Additional Tx - Start: 11/20/18 9:36:00 EDT, For Dysphagia, Continuous Order -111 Admission Date : Admission Date/Time: 11/16/18 06:45:00 Medical Chart Reviewed, FEDERAL JUDGE : Yes Personal Devices : Personal Devices No Devices Recorded Assistive Devices : Assistive Devices No Devices Recorded Active Diagnoses : 11/23/2018 00:00 Cerebral infarction, unspecified 11/17/2018 00:00 Atherosclerotic heart disease of [place] coronary artery without angina pectoris 11/17/2018 00:00 Essential (primary) hypertension 11/17/2018 00:00 Hypothyroidism, unspecified 11/17/2018 00:00 Nonrheumatic aortic (valve) insufficiency 11/17/2018 00:00 Restless legs syndrome 11/17/2018 00:00 Thoracic aortic aneurysm, without rupture 11/17/2018 00:00 Thrombocytopenia, unspecified 11/16/2018 00:00 Atherosclerotic 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 Pt has participated in tx and is ready for a repeat study Previous Cognitive Evaluations : this admit Diet/Intake Prior to Current Admission : Regular/thin Diet/Intake During Current Admission : reg/thin following MBS Intubation Comment, FEDERAL JUDGE : 11/16-11/17 Vital Signs RTF : Vitals [...] 9:15 EDT General Status Patient Received Status, FEDERAL JUDGE : Up in chair Patient Left Status, FEDERAL JUDGE : Up in chair JOSSUE RODRÍGUEZ SLP [...] Consistencies Trialed MB/VFSS : Thin by straw, [place] by straw, Pudding JOSSUE RODRÍGUEZ, ERIC - 11/26/2018 9:15 EDT Swallow Impressions Impressions, MBSS/VFSS : Functional swallow for oral intake JOSSUE RODRÍGUEZ SLP - 11/26/2018 9:15 EDT 8 Point Penetration/Aspiration Grid Thin by Straw : 1 [place] by Straw : 1 Pudding : 1 [...] Discussed briefly with CTS PA. JOSSUE RODRÍGUEZ, FEDERAL JUDGE - 11/26/2018 9:15 EDT Swallow Recommendations Recommended Diet Type, SwRec : Regular Recommended Liquid Diet, SwRec : Thin Swallow Position, SwRec : Upright 90 degrees Supervision Level w/Meals, SwRec : Independent, modified Recommended Med Present, SwRec : As per nursing JOSSUE RODRÍGUEZ SLP - 11/26/2018 9:15 EDT Therapy Indication Assessment FEDERAL JUDGE Indicated : No FEDERAL JUDGE Not Indicated : At prior level of function JOSSUE RODRÍGUEZ SLP - 11/26/2018 9:15 EDT Swallow Plan/Goals Swallow LTG Grid FEDERAL JUDGE Jail Goal #1 FEDERAL JUDGE Filter Press Tender Head Goal #2 Swallow LTG : Establish safe [...] JOSSUE RODRÍGUEZ SLP - 11/26/2018 9:15 EDT FEDERAL JUDGE Education Assessment Grid 1 Aspiration : Needs further teaching Diet Recommendation : Needs further teaching JOSSUE RODRÍGUEZ SLP - 11/26/2018 9:[address] [facility] [facility] FEDERAL JUDGE Charges Modified Barium Swallow : 1 JOSSUE RODRÍGUEZ SLP - 11/26/2018 9:15 EDT documented in this encounter Plan of Treatment Not on file documented as of this encounter Visit Diagnoses Not on filedocumented in this encounter
--- OUTSIDE RECORDS SUMMARY | 2025-05-08 12:59 | XMS_ITS | Encounter Summary ---
Author Organization [employer] ([place], [place], [place], [place]) Address [address] [place] [address] Care Team Providers Care Acid Loader Name Role Phone Unavailable Primary Care Provider Unavailabl e Encounter Details Date Type Department Care Team (Late st Contact Info) Description 11/27/2018 Transcribed Document [facility] [place] Family Medicine [address] [place] [address] ProviderErika MD [address] [place], [place] [id number] Social History Tobacco Use Types Packs/Day Years Used Date Smoking Tobacco: Never Assessed Sex and Gender Information Value Date Recorded Sex Assigned at Not on file Legal Sex Male 5:03 PM CDT Gender Identity Not on file Sexual Orientation Not on file documented as of this encounter Miscellaneous Notes * Cerner Conversion Note - Historical ProviderMD - 11/27/2018 2:00 AM CDT Control Tower Radio Operator Details Entered On: 11/27/2018 3:00 EDT Performed [...]
[2025-05-08] MEDS: ERTAPENEM SODIUM 1 GM VIAL IM (13:23)
[2025-05-08 13:32] VITALS: BP 181/87; PULSE 89; RESP 18; O2SAT 94
== END 2025-05-08 13:32 | disposition home or self-care (01) ==
LOC: INF 12:53
PROVIDERS: PCP Internal Medicine; Visit Provider Internal Medicine
DX: N30.01 Acute cystitis with hematuria (principal)
CPT/HCPCS: 96372; J1335

== ENCOUNTER 2025-05-09 13:02 | Outpatient (CLI) | payer MEDICARE, SELFPAY ==
--- OUTSIDE RECORDS SUMMARY | 2025-05-09 13:07 | XMS_ITS | Encounter Summary ---
Author Organization [employer] ([place], [place], [place], [place]) Address [address] [place] [address] Care Team Providers Care Language Interpreter Name Role Phone Unavailable Primary Care Provider Unavailabl e Encounter Details Date Type Department Care Team (Late st Contact Info) Description 11/22/2018 Transcribed Document [facility] [place] [address] [place] [address] ProviderErika MD [address] [place] [address] Social History Tobacco Use Types [...] On: 11/22/2018 9:23 EDT by JOSSUE RODRÍGUEZ INTERNET SECURITY SPECIALIST General Information Visit Type, INTERNET SECURITY SPECIALIST : Re-Evaluation Patient Orders : INTERNET SECURITY SPECIALIST Fxnl Limitation Documentation x 1 -111 Start: 11/22/18 8:22:14 EDT - SYSTEM, SYSTEM FEES - Start: 11/22/18 8:21:00 EDT, Routine, For Swallow Eval and Treat -111 MARIEL ROBLES PA INTERNET SECURITY SPECIALIST Fxnl Limitation Documentation - Start: 11/20/18 9:37:47 EDT, Continuous Order -111 SYSTEM, SYSTEM Speech Language Pathology Additional Tx - Start: 11/20/18 9:36:00 EDT, For Dysphagia, Continuous Order -111 Admission Date : Admission Date/Time: 11/16/18 06:45:00 Medical Chart Reviewed, INTERNET SECURITY SPECIALIST : Yes Personal Devices : Personal Devices No Devices Recorded Assistive Devices : Assistive Devices No Devices Recorded Active Diagnoses : 11/17/2018 00:00 Atherosclerotic heart disease of [place] coronary artery without angina pectoris 11/17/2018 00:00 Essential (primary) hypertension 11/17/2018 00:00 Hypothyroidism, unspecified 11/17/2018 00:00 Nonrheumatic aortic (valve) insufficiency 11/17/2018 00:00 Restless legs syndrome 11/17/2018 00:00 Thoracic aortic aneurysm, without rupture 11/17/2018 00:00 Thrombocytopenia, unspecified 11/16/2018 00:00 Atherosclerotic heart disease of [place] coronary artery without angina pectoris 11/16/2018 00:00 Nonrheumatic aortic (valve) insufficiency 11/16/2018 00:00 Thoracic aortic aneurysm, without rupture Therapy Diagnosis, INTERNET SECURITY SPECIALIST : normal oral skills, moderate pharyngeal dysphagia Previous Speech/Language Evaluations : N/A Previous Swallow Precautions : Bedside 11/20 recommended instrumental prior to initiating PO diet Previous Cognitive Evaluations : N/A Diet/Intake Prior to Current Admission : Regular/thin Diet/Intake During Current Admission : NPO with TF via [place] Gag Reflex Intact : Yes Intubation Comment, INTERNET SECURITY SPECIALIST : 11/16-11/17 Vital Signs RTF : Vitals [...] 9:23 EDT General Status Patient Received Status, INTERNET SECURITY SPECIALIST : Long sitting in bed Patient Left Status, INTERNET SECURITY SPECIALIST : Long sitting in bed JOSSUE RODRÍGUEZ [...] Consistencies Trialed FEES : Thin by straw, [place] by straw, Pureed, Regular solids JOSSUE RODRÍGUEZ SLP - 11/22/2018 9:23 EDT Swallow Impressions Impressions, FEES : Pharyngeal dysphagia JOSSUE RODRÍGUEZ SLP - 11/22/2018 9:23 EDT 8 Point Penetration/Aspiration Grid Thin by Straw : 8 [place] by Straw : 1 Pureed : 1 [...] : Regular Recommended Liquid Diet, SwRec : [place] Feeding Presentation Style, SwRec : No restrictions Swallow Position, SwRec : Upright 90 degrees Supervision Level w/Meals, SwRec : Assist, standby Recommended Med Present, SwRec : Crushed, Whole, With nectar, With puree/pudding, No medications with water Recommended Exam, Sw Rec : FEES Repeat Swallow Exam Timeframe : 3-6 days JOSSUE RODRÍGUEZ SLP - 11/22/2018 9:34 EDT Therapy Indication Assessment INTERNET SECURITY SPECIALIST Indicated : Yes INTERNET SECURITY SPECIALIST Problem List : Impaired, Swallowing JOSSUE RODRÍGUEZ SLP - 11/22/2018 9:34 EDT Swallow Plan/Goals Treatment Frequency, INTERNET SECURITY SPECIALIST : 5 times per wk Treatment Plan Est w/Pt/Caregvr, Swallow : Yes JOSSUE RODRÍGUEZ SLP - 11/22/2018 9:34 EDT Swallow LTG Grid INTERNET SECURITY SPECIALIST Trust Advisor Goal #1 INTERNET SECURITY SPECIALIST Long-Term Goal #2 Swallow LTG : Establish safe [...] JOSSUE RODRÍGUEZ SLP - 11/22/2018 9:34 EDT INTERNET SECURITY SPECIALIST Education Assessment Grid 1 Aspiration : Needs further teaching Diet Recommendation : Needs further teaching Dysphagia : Needs further teaching Free Water Protocol : Needs further teaching Ice Chips : Needs further teaching Oral Care : Needs further teaching JOSSUE RODRÍGUEZ SLP - 11/22/2018 9:34 EDT INTERNET SECURITY SPECIALIST Education Assessment Grid 2 Speech Language Pathology Treatment Plan : Needs further teaching JOSSUE RODRÍGUEZ SLP - 11/22/2018 9:[address] [facility] INTERNET SECURITY SPECIALIST Charges FEES : 1 JOSSUE RODRÍGUEZ SLP - 11/22/2018 9:34 EDT documented in this encounter Plan of Treatment Not on file documented as of this encounter Visit Diagnoses Not on filedocumented in this encounter
--- OUTSIDE RECORDS SUMMARY | 2025-05-09 13:07 | XMS_ITS | Encounter Summary ---
Author Organization [employer] ([place], [place], [place], [place]) Address [address] [place] [address] Care Team Providers Care Obstetrics Technician Name Role Phone Unavailable Primary Care Provider Unavailabl e Encounter Details Date Type Department Care Team (Late st Contact Info) Description 11/22/2018 Transcribed Document [facility] [place] [address] [place] [address] ProviderErika MD [address] [place] [...] Source : Measured Height Entry Format : [place] Height, Feet : 6 ft Height, Inches : 1 Inch Clinical Height : 185.42 cm Amanda Sigala RN - 11/22/2018 6:08 EDT Amanda Sigala RN - 11/22/2018 6:15 EDT documented in this encounter Plan of Treatment Not on file documented as of this encounter Visit Diagnoses Not on filedocumented in this encounter
--- OUTSIDE RECORDS SUMMARY | 2025-05-09 13:07 | XMS_ITS | Encounter Summary ---
Author Organization [employer] ([place], [place], [place], [place]) Address [address] [place] [address] Care Team Providers Care Electronic Technologist Name Role Phone Unavailable Primary Care Provider Unavailabl e Encounter Details Date Type Department Care Team (Late st Contact Info) Description 11/22/2018 Transcribed Document [facility] [place] Family Medicine [address] [place] [address] ProviderErika MD [address] [place] [address] Social History Tobacco Use [...] EDT by LEONEL GUZMAN Chaplain General Information Mosque Preference : Orthodoxy LEONEL GUZMAN Chaplain - 11/24/2018 2:35 EDT Spiritual Assessment Spiritual Assessment Comment/Summary Points : Prov. empathetic engaged listening: Pt. is Orthodoxy, spouse & son visit pt. regularly, Spouse & Pt. in their late teens. Pt. enjoys reminiscing and story telling, Pt. looking forward to [facility] rehab noting he wants/needs to work [...]
--- OUTSIDE RECORDS SUMMARY | 2025-05-09 13:08 | XMS_ITS | Encounter Summary ---
Author Organization [employer] ([place], [place], [place], [place]) Address [address] [place] [address] Care Team Providers Care Hairspring Inspector Name Role Phone Unavailable Primary Care Provider Unavailabl e Encounter Details Date Type Department Care Team (Late st Contact Info) Description 11/29/[address] [facility] [place] Family Medicine [address] [place] [address] ProviderErika MD [address] [place] [address] Social History Tobacco Use Types [...] EDT Electronically signed by Christina Saini Conversion Quality Assurance Project Manager Cerner at 12/08/2022 12:25 PM CDT documented in this encounter Plan of Treatment Not on file documented as of this encounter Visit Diagnoses Not on filedocumented in this encounter
--- OUTSIDE RECORDS SUMMARY | 2025-05-09 13:08 | XMS_ITS | Encounter Summary ---
Author Organization [employer] ([place], [place], [place], [place]) Address [address] [place] [address] Care Team Providers Care Windows Systems Admin Name Role Phone Unavailable Primary Care Provider Unavailabl e Encounter Details Date Type Department Care Team (Late st Contact Info) Description 11/25/2018 Transcribed Document [facility] [place] [address] [place] [address] ProviderErika MD [address] [place], [...] Time of Assessment : 11/25/2018 9:00 EDT [facility] Clinician Administering Scale : Elissa [...]
--- OUTSIDE RECORDS SUMMARY | 2025-05-09 13:08 | XMS_ITS | Encounter Summary ---
Author Organization [employer] ([place], [place], [place], [place]) Address [address] [place] [address] Care Team Providers Care Office Assistant Name Role Phone Unavailable Primary Care Provider Unavailabl e Encounter Details Date Type Department Care Team (Late st Contact Info) Description 11/29/2018 Transcribed Document [facility] [place] Family Medicine [address] [place] [address] ProviderErika MD [address] [place], [place] [phone] Social History Tobacco Use Types Packs/Day Years [...] 1940 Associated Diagnoses: CAD (coronary artery disease), [place] coronary artery; Thrombocytopenia; Coronary artery disease; HTN [...] Non-distended, Normal bowel sounds. Integumentary: Warm, Dry, [place], incision is C/D/I. Neurologic: Alert, left sided [...] (Current Encounter/Past 24 Hours) PT 31.3 Second(s) AL 11/29/2018 06:38 PTT 27.6 Second(s) 11/28/2018 08:53 INR 3.0 [place] 11/29/2018 06:38 . Impression and Plan Plan: [...] time of discharge- has sent information to [facility] -Transfer to [facility] 11/24/18 -POD#8 -Awaiting transfer to [facility] -Awaiting response from [facility] 11/25/18 -POD#9 -left upper extremity venous doppler - doppler this am positive for LUE DVT - will start coumadin and heparin bridge -awaiting [facility] 11/26/18 -POD#10 -Heparin drip and coumadin for LUE DVT -Left arm swelling improved today -INR 1.1 today, INR goal 2-3 -Possibly transfer to [facility] this weekend 11/27/18: -POD#11 -Left arm swelling continues to improve -Continues on Coumadin and heparin bridge -INR: 1.4 (1.1 yesterday) goal: 2 to 3 -[facility] soon,? Tomorrow 11/28/18: -POD#12 -BP in 70s-80s this AM -He had a dark black stool and has had a couple of fluid boluses -Heparin was D/C'd and his INR is 2.0 this AM (on coumadin 5mg qd) -Hct is down to 23.6 -GI med has been consulted and he is to undergo EGD -Also some blood has been set up. -[facility]red to [facility] 11/29/18: -POD#13 -Upper endoscopy showed duodenal [...] D/C due to GI bleed. -Transfer to [facility] EF 55-60% per echo 11/16/18 DVT Prophylaxis: SCDs Diagnosis CAD (coronary artery disease), [place] coronary artery - Admitting, Medical. Thrombocytopenia - [...] bleed - Discharge, Medical. Electronically signed by Christina Saini Conversion Security Flex Utility Officer Cerner at 12/08/2022 12:15 PM CDT documented in this encounter Plan of Treatment Not on file documented as of this encounter Visit Diagnoses Not on filedocumented in this encounter
--- OUTSIDE RECORDS SUMMARY | 2025-05-09 13:08 | XMS_ITS | Encounter Summary ---
Author Organization [employer] ([place], [place], [place], [place]) Address [address] [place] [address] Care Team Providers Care Tire Maintenance Technician Name Role Phone Unavailable Primary Care Provider Unavailjuliana e Encounter Details Date Type Department Care Team (Late st Contact Info) Description 11/29/2018 Transcribed Document [facility] [place] Family Medicine [address] [place] [address] ProviderErika MD [address] [place] [address] Social History Tobacco Use [...] unspecified 11/17/2018 00:00 Atherosclerotic heart disease of [place] coronary artery without angina pectoris 11/17/2018 00:00 Essential (primary) hypertension 11/17/2018 00:00 Hypothyroidism, unspecified 11/17/2018 00:00 Nonrheumatic aortic (valve) insufficiency 11/17/2018 00:00 Restless legs syndrome 11/17/2018 00:00 Thoracic aortic aneurysm, without rupture 11/17/2018 00:00 Thrombocytopenia, unspecified 11/16/2018 00:00 Atherosclerotic heart 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
--- OUTSIDE RECORDS SUMMARY | 2025-05-09 13:08 | XMS_ITS | Encounter Summary ---
Author Organization [employer] ([place], [place], [place], [place]) Address [address] [place] [address] Care Team Providers Care Exhibitions Curator Name Role Phone Unavailable Primary Care Provider Unavailabl e Encounter Details Date Type Department Care Team (Late st Contact Info) Description 11/18/2018 Transcribed Document [facility] Cardiology [address] [place] [address] Lc Armendariz MD [address] [facility] [address] [place] [address] Social History Tobacco Use Types [...] mg, Oral, At Bedtime saliva substitutes: 1 [place], Buccal, Q2H, PRN: Other (See Comment) sodium [...] of motion, Normal strength. Integumentary: Warm, Dry, [place]. Neurologic: Alert, Oriented. Psychiatric: Cooperative, Appropriate mood & affect. Results Review NOV 18 03:37 138 106 19 / H 200 3.8 27 0.90 \ NOV 18 03:37 \ L 10.2 / H 17.7 L 103 / L 30.3 \ Cardiac Markers (Current Encounter/Past 24 Hours) No Cardiac Marker Results Found (Past 24 Hours) Radiology Results (Last 48 hours) [id number] -- 11/16/2018 06:45 CR Chest 1 Vw Portable (11/16/2018 12:55) Result: PORTABLE CHEST HISTORY: Pneumothorax.COMPARISON: 1 day prior.FINDINGS: The heart is stable in size. The patient is status post mediansternotomy. The endotracheal tube is in the mid thoracic trachea. Anasogastric tube extends below the diaphragm. Left-sided [place]-Ganzcatheter tip is in the left main pulmonary [...] day.FINDINGS: The heart is normal in size. [place] catheter tips in theleft pulmonary artery. There [...]
--- OUTSIDE RECORDS SUMMARY | 2025-05-09 13:08 | XMS_ITS | Encounter Summary ---
Author Organization [employer] ([place], [place], [place], [place]) Address [address] [place] [address] Care Team Providers Care Pre Sales Technical Engineer Name Role Phone Unavailable Primary Care Provider Unavailabl e Encounter Details Date Type Department Care Team (Late st Contact Info) Description 11/25/2018 Transcribed Document [facility] [place] [address] [place] [address] ProviderErika MD [address] [place], [...]
--- OUTSIDE RECORDS SUMMARY | 2025-05-09 13:08 | XMS_ITS | Encounter Summary ---
Author Organization [employer] ([place], [place], [place], [place]) Address [address] [place] [address] Care Team Providers Care Creative Writer Name Role Phone Unavailable Primary Care Provider Unavailabl e Encounter Details Date Type Department Care Team (Late st Contact Info) Description 11/29/2018 Transcribed Document [facility] [place] Family Medicine [address] [place] [address] ProviderErika MD [address] [place] [address] Social History Tobacco Use Types [...]
--- OUTSIDE RECORDS SUMMARY | 2025-05-09 13:08 | XMS_ITS | Encounter Summary ---
Author Organization [employer] ([place], [place], [place], [place]) Address [address] [place] [address] Care Team Providers Care Brand Inspector Name Role Phone Unavailable Primary Care Provider Unavailabl e Encounter Details Date Type Department Care Team (Late st Contact Info) Description 11/17/2018 Transcribed Document [facility] Cardiology [address] [place] [address] cL Armendariz MD [address] [facility] [address] [place] [address] Social History Tobacco Use Types [...] MD-CAR Basic Information PCP: Sanjuana Espino MD Car Unloader: Porfirio Combs MD Chief Complaint s/p bioprosthetic [...] list: All Problems Aneurysm, thoracic aortic / [id number] / Confirmed Aortic valve insufficiency / 242961939 / Confirmed Arthritis / 6804676 / Confirmed At risk for sleep apnea / 16682939 / Confirmed CAD (coronary artery disease) / 98864236 / Confirmed Disorder of prostate ( enlarged) / 34419451 / Confirmed HTN - Hypertension / 6921394835 / Confirmed Hypothyroidism / 88207234 / Confirmed Frequent urination / 176082728 / Confirmed Cancer of skin of face / 8591918357 / Confirmed Nocturia / 121533385 / Confirmed Restless legs syndrome / 28846875 / Confirmed Prostate stricture / 70818331 / Confirmed Resolved: Bladder stone / 671211504 Canceled: Aneurysm / 0311281911 Canceled: Thyroid disease / 344593038 Histories No education data available. Social & Psychosocial Habits Alcohol 04/16/2017 Alcohol Use History, Social Habits No Alcohol Use in Last Twelve Months No Home/Environment 11/15/2018 Lives with: Spouse Living situation: Home/Independent Substance Abuse 04/16/2017 Recreational Drug Use History No Recreational Drug Use Last 12 Months No Tobacco 04/16/2017 Smoking Status Never smoker Past Medical History: Active HTN - Hypertension (9057574671) Hypothyroidism (35864733) Family History: Entire family history is negative. [...] No tenderness, No swelling. Integumentary: Warm, Dry, [place]. Neurologic: Not alert, Not oriented. Psychiatric: not [...] 11/17/2018 05:17 Radiology Results (Last 48 hours) [id number] -- 11/16/2018 06:45 CR Chest 2 Vws [...] Anasogastric tube extends below the diaphragm. Left-sided [place]-Ganzcatheter tip is in the left main pulmonary [...] day.FINDINGS: The heart is normal in size. [place]ovanna catheter tips in theleft pulmonary artery. There [...]
--- OUTSIDE RECORDS SUMMARY | 2025-05-09 13:08 | XMS_ITS | Encounter Summary ---
Author Organization [employer] ([place], [place], [place], [place]) Address [address] [place] [address] Care Team Providers Care Shrimping Boat Captain Name Role Phone Unavailable Primary Care Provider Unavailabl e Encounter Details Date Type Department Care Team (Late st Contact Info) Description 11/29/2018 Transcribed Document [facility] [place] Family Medicine [facility] [place] [address] ProviderErika MD [address], [place] [phone] Social History Tobacco Use Types Packs/Day Years [...] EDT) Electronically signed by Christina Saini Conversion Single Fold Machine Operator Cerner at 12/08/2022 12:28 PM CDT documented in this encounter Plan of Treatment Not on file documented as of this encounter Visit Diagnoses Not on filedocumented in this encounter
--- OUTSIDE RECORDS SUMMARY | 2025-05-09 13:08 | XMS_ITS | Encounter Summary ---
Author Organization [employer] ([place], [place], [place], [place]) Address [address] [place] [address] Care Team Providers Care Soil Conservation Technician Name Role Phone Unavailable Primary Care Provider Unavailabl e Encounter Details Date Type Department Care Team (Late st Contact Info) Description 11/22/2018 Transcribed Document [facility] [place] [address] [place] [address] ProviderErika MD [address] [place], [place] [phone] Social History Tobacco Use Types Packs/Day Years [...] S1, S2, No edema. Integumentary: Warm, Dry, [place], incision is C/D/I. Neurologic: Alert, left sided [...] - Discharge, Medical. Electronically signed by Parveen, [facility] Conversion Real Estate Internship Cerner at 12/08/2022 12:25 PM CDT documented in this encounter Plan of Treatment Not on file documented as of this encounter Visit Diagnoses Not on filedocumented in this encounter
--- OUTSIDE RECORDS SUMMARY | 2025-05-09 13:08 | XMS_ITS | Encounter Summary ---
Author Organization [employer] ([place], [place], [place], [place]) Address [address] [place] [address] Care Team Providers Care Life Management Teacher Name Role Phone Unavailable Primary Care Provider Unavailabl e Encounter Details Date Type Department Care Team (Late st Contact Info) Description 11/21/2018 Transcribed Document [facility] [place] Family Medicine [address] [place] [address] ProviderErika MD [address] [place] [address] Social History Tobacco Use [...] Source : Measured Height Entry Format : [place] Height, Feet : 6 ft Height, Inches [...]
--- OUTSIDE RECORDS SUMMARY | 2025-05-09 13:08 | XMS_ITS | Encounter Summary ---
Author Organization [employer] ([place], [place], [place], [place]) Address [address] [place] [address] Care Team Providers Care Physical Chemistry Teacher Name Role Phone Unavailable Primary Care Provider Unavailabl e Encounter Details Date Type Department Care Team (Late st Contact Info) Description 11/29/2018 Transcribed Document [facility] [place] [address] [place] [address] ProviderErika MD [address] [place] [address] Social History Tobacco Use Types Packs/Day Years Used Date Smoking Tobacco: Never Assessed Sex and Gender Information Value Date Recorded Sex Assigned at Not on file Legal Sex Male 5:03 PM CDT Gender Identity Not on file Sexual Orientation Not on file documented as of this encounter Miscellaneous Notes * Cerner Conversion Note - Erika ProviderMD - 11/29/2018 2:51 PM CDT [facility] Endo PACU Summary Primary Physician: RIGOBERTO YU MD Finalized Date/Time: 11/29/18 15:36:07 Pt. Name: VILLASENOR DOTTIE Ladan /Sex: 1940 Male Med Rec #: [id number] Physician: JULIO CESAR CARVALHO MD-[facility] Financial #: [id number] Pt. Type: I Room/Bed: 330/1 Admit/Disch: 11/16/18 06:45:00 - Institution: [facility] Endo PACU Case Times Entry 1 In PACU I 11/29/18 15:10:00 Ready for PACU 11/29/18 15:35:00 Discharge Discharge from PACU 11/29/18 15:35:00 I Last Modified By: Destiney Mckenzie RN 11/29/18 15:35:51 [facility] Endo PACU Case Times Audit 11/29/18 15:35:51 Java Front End Web Developer: [email or web address] Modifier: [email or web address] <+> 1 Ready for PACU Discharge <+> 1 Discharge from PACU I Finalized By: Destiney Mckenzie RN Document Signatures Signed By: Destiney Mckenzie RN 11/29/18 15:36 Electronically signed by Parveen [facility] Conversion Automatic Equipment Technician Cerner at 12/08/2022 12:16 PM CDT documented in this encounter Plan of Treatment Not on file documented as of this encounter Visit Diagnoses Not on filedocumented in this encounter
--- OUTSIDE RECORDS SUMMARY | 2025-05-09 13:08 | XMS_ITS | Encounter Summary ---
Author Organization [employer] ([place], [place], [place], [place]) Address [address] [place] [address] Care Team Providers Care Global Clinical Leader Name Role Phone Unavailable Primary Care Provider Unavailabl e Encounter Details Date Type Department Care Team (Late st Contact Info) Description 11/23/2018 Transcribed Document [facility] [place] [address] [place] [address] ProviderErika MD [address] [place] [address] Social History Tobacco Use Types [...] Time of Assessment : 11/23/2018 20:00 EDT [facility] Clinician Administering Scale : SHELDON MUELLER RN [...] in one limb NIH Sensory (8) : Aiau-cc-hqzyonoa sensory loss NIH Best Language (9) : No aphasia NIH Dysarthria (10) : Normal Extinction and Inattention (11) : No abnormality NIH Scale Score : 9 SHELDON MUELLER RN - 11/23/2018 20:14 EDT documented in this encounter Plan of Treatment Not on file documented as of this encounter Visit Diagnoses Not on filedocumented in this encounter
--- OUTSIDE RECORDS SUMMARY | 2025-05-09 13:08 | XMS_ITS | Encounter Summary ---
Author Organization [employer] ([place], [place], [place], [place]) Address [address] [place] [address] Care Team Providers Care Commercial Lines Sales Executive Name Role Phone Unavailable Primary Care Provider Unavailabl e Encounter Details Date Type Department Care Team (Late st Contact Info) Description 11/17/2018 Transcribed Document [facility] [place] [address] [place] [address] ProviderErika MD [address] [place], [place] [phone] Social History Tobacco Use Types Packs/Day Years [...] 1940 Associated Diagnoses: CAD (coronary artery disease), [place] coronary artery; Thrombocytopenia; Coronary artery disease; HTN [...] Palpable bilateral DP pulses. Integumentary: Warm, Dry, [place]. Neurologic: Not alert. Review / Management Results review: NOV 17 03:12 142 110 20 / H 115 4.1 25 1.10 \ NOV 17 03:12 \ L 10.7 / H 15.3 L 112 / L 32.1 \ Blood Gases (Current Encounter/Past 24 Hours) pH Art 7.48 VT 11/17/2018 05:17 pCO2 Art 31.2 LOW 11/17/2018 [...] 43.0 11/16/2018 12:06 pO2 Art POC 433.0 VT 11/16/2018 12:06 HCO3 Art POC 28.5 VT 11/16/2018 12:06 tCO2 Art POC 30.0 VT 11/16/2018 12:06 BE Art POC 4.0 VT 11/16/2018 12:06 sO2 Art POC >99.9 VT 11/16/2018 12:06 ABG Num of Draw Attempts 1 11/17/2018 05:17 Coagulation Results (Current Encounter/Past 24 Hours) No Coagulation Results Found (Past 24 Hours) . Impression and Plan Plan: 11/17/18 -POD#1 -MTs left in place secondary to drainage EF 55-60% per echo 11/16/18 DVT Prophylaxis: SCDs Diagnosis CAD (coronary artery disease), [place] coronary artery - Admitting, Medical. Thrombocytopenia - [...] Medical. Electronically signed by Christina Saini Conversion Electronics Warfare Technician Cerner at 12/08/2022 12:19 PM CDT documented in this encounter Plan of Treatment Not on file documented as of this encounter Visit Diagnoses Not on filedocumented in this encounter
--- OUTSIDE RECORDS SUMMARY | 2025-05-09 13:08 | XMS_ITS | Encounter Summary ---
Author Organization [employer] ([place], [place], [place], [place]) Address [address] [place] [address] Care Team Providers Care Physical Plant Manager Name Role Phone Unavailable Primary Care Provider Unavailabl e Encounter Details Date Type Department Care Team (Late st Contact Info) Description 11/29/2018 Transcribed Document [facility] [place] [address] [place] [address] ProviderErika MD [address] [place], [place] [id number] Social History Tobacco Use Types Packs/Day Years Used Date Smoking Tobacco: Never Assessed Sex and Gender Information Value Date Recorded Sex Assigned at Not on file Legal Sex Male 5:03 PM CDT Gender Identity Not on file Sexual Orientation Not on file documented as of this encounter Miscellaneous Notes * Cerner Conversion Note - Historical ProviderMD - 11/29/2018 2:00 AM CDT Control Room Supervisor Details Entered On: 11/29/2018 1:39 EDT Performed [...] CHARLES LIAO, RN - 11/29/2018 1:39 EDT Electronically signed by Christina Saini Conversion Licensed Psychiatric Technician Cerner at 12/08/2022 12:30 PM CDT documented in this encounter Plan of Treatment Not on file documented as of this encounter Visit Diagnoses Not on filedocumented in this encounter
--- OUTSIDE RECORDS SUMMARY | 2025-05-09 13:08 | XMS_ITS | Encounter Summary ---
Author Organization [employer] ([place], [place], [place], [place]) Address [address] [place] [address] Care Team Providers Care Dietary Internship Name Role Phone Unavailable Primary Care Provider Unavailabl e Encounter Details Date Type Department Care Team (Late st Contact Info) Description 11/23/2018 Transcribed Document [facility] [place] [address] [place] [address] ProviderErika MD [address] [place] [address] Social History Tobacco Use Types [...] unspecified 11/17/2018 00:00 Atherosclerotic heart disease of [place] coronary artery without angina pectoris 11/17/2018 00:00 Essential (primary) hypertension 11/17/2018 00:00 Hypothyroidism, unspecified 11/17/2018 00:00 Nonrheumatic aortic (valve) insufficiency 11/17/2018 00:00 Restless legs syndrome 11/17/2018 00:00 Thoracic aortic aneurysm, without rupture 11/17/2018 00:00 Thrombocytopenia, unspecified 11/16/2018 00:00 Atherosclerotic heart disease of [place] coronary artery without angina pectoris 11/16/2018 00:00 [...] Plan/Goals Established w Patient : Yes AUDREY GARNDE OTR/Ginny - 11/30/2018 15:25 EDT Disassembler Goals, OT Self Feeding LTG Grid Goal [...] Family present. MaxAx2 chair to bed transfer, SPANISH TRANSLATOR. RN assisting. Pt's L UE very weak. [...] EDT Electronically signed by Christina Saini Conversion Echocardiography Radiology Technologist Cerner at 12/12/2022 8:26 AM CDT documented in this encounter Plan of Treatment Not on file documented as of this encounter Visit Diagnoses Not on filedocumented in this encounter
--- OUTSIDE RECORDS SUMMARY | 2025-05-09 13:08 | XMS_ITS | Encounter Summary ---
Author Organization [employer] ([place], [place], [place], [place]) Address [address] [place] [address] Care Team Providers Care Funeral Car Chauffeur Name Role Phone Unavailable Primary Care Provider Unavailjuliana e Encounter Details Date Type Department Care Team (Late st Contact Info) Description 11/17/2018 Transcribed Document [facility] [place] [address] [place] [address] ProviderErika MD [address] [place] [address] Social History Tobacco Use Types [...] On: 11/17/2018 11:49 EDT by Lizabeth Marti, Retail District Manager Nutrition Assessment Nutrition Assessment Reason : [...] wnls + sternum midline incision GI: LBM CONSERVATION ENFORCEMENT OFFICER, hypoactive BS, +NGT, +chest tube (1030 ml) HT: 185cm (6'1) ADMIT WT: 79kg/174# BMI: 23 IBW: 79kg/100% NFPE: insignificant EST NEEDS: 6981-3717 kcal (25-30kcal/kg), 95g pro (1.2g/kg) Lizabeth Marti [...] recommend initate po diet (cardiac) w/consitencies per MACHINING TECHNICIAN. RD will monitor need for supplement. goal: [...]
--- OUTSIDE RECORDS SUMMARY | 2025-05-09 13:08 | XMS_ITS | Encounter Summary ---
Author Organization [employer] ([place], [place], [place], [place]) Address [address] [place] [address] Care Team Providers Care Corporate Lawyer Name Role Phone Unavailable Primary Care Provider Unavailabl e Encounter Details Date Type Department Care Team (Late st Contact Info) Description 11/17/2018 Transcribed Document [facility] [place] [address] [place] [address] ProviderErika MD [address] [place] [address] Social History Tobacco Use Types [...] Source : Measured Height Entry Format : [place] Height, Feet : 6 ft Height, Inches : 1 Inch Clinical Height : 185.42 cm Body Surface Area (BSA), Routine : 2.06 m2 Body Mass Index (BMI), Routine : 23.73 kg/m2 Alpesh Barraza RN - 11/17/2018 7:37 EDT Electronically signed by Christina Saini Conversion Costumed Character Entertainer Cerner at 12/08/2022 12:13 PM CDT documented in this encounter Plan of Treatment Not on file documented as of this encounter Visit Diagnoses Not on filedocumented in this encounter
--- OUTSIDE RECORDS SUMMARY | 2025-05-09 13:08 | XMS_ITS | Encounter Summary ---
Author Organization [employer] ([place], [place], [place], [place]) Address [address] [place] [address] Care Team Providers Care Station Worker Name Role Phone Unavailable Primary Care Provider Unavailabl e Encounter Details Date Type Department Care Team (Late st Contact Info) Description 11/30/2018 Transcribed Document [facility] [place] [address] [place] [address] ProviderErika MD [address] [place] [address] Social History Tobacco Use Types [...]
--- OUTSIDE RECORDS SUMMARY | 2025-05-09 13:08 | XMS_ITS | Encounter Summary ---
Author Organization [employer] ([place], [place], [place], [place]) Address [address] [place] [address] Care Team Providers Care Elementary School Director Name Role Phone Unavailable Primary Care Provider Unavailabl e Encounter Details Date Type Department Care Team (Late st Contact Info) Description 11/22/2018 Transcribed Document [facility] [place] [address] [place] [address] ProviderErika MD [address] [place] [phone] Social History Tobacco Use Types Packs/Day Years [...] of Systems Respiratory - wearing 02 by [place] GI - has NG tube. Objective Vitals [...] Tab, Oral, At Bedtime saliva substitutes, 1 [place], Buccal, Q2H, PRN Senokot, 17.2 mg= 2 [...]
--- OUTSIDE RECORDS SUMMARY | 2025-05-09 13:08 | XMS_ITS | Encounter Summary ---
Author Organization [employer] ([place], [place], [place], [place]) Address [address] [place] [address] Care Team Providers Care Airplane Mechanic Apprentice Name Role Phone Unavailable Primary Care Provider Unavailabl e Encounter Details Date Type Department Care Team (Late st Contact Info) Description 11/22/2018 Transcribed Document [facility] [place] [address] [place] [address] ProviderErika MD [address] [place] [address] Social History Tobacco Use [...] at goal rate. Did have BM yesterday. POUNCING LATHE OPERATOR okayed pt for po diet this am- follow up after breakfast and pt had eating 50% of meal. Pt stated he would enjoy ensure as well. Spoke with RN about observing 1-2 more meals before removing corpak and speaking with MD as well. 11/18: Check on: Pt is on Osmolite 1.5 @ 50m/hr + 1 [id number] daily advancing toward goal of 60ml/hr + 1 [id number] daily. No POUNCING LATHE OPERATOR consult noted, discussed if any concern [...] Support: Jevity 1.5 @ 60ml/hr + 1 [id number] daily, HT: 185cm (6'1) ADMIT WT: 79kg/174# Current Wt: 81.6kg (11/17), 82.4kg (11/18) , 84.3 kg (11/22) BMI: 23 IBW: 79kg/100% EST NEEDS: 8504-5858 kcal (25-30kcal/kg), 95g pro (1.2g/kg) DAVION GREEN [...] 11/22/2018 12:04 EDT Electronically signed by Parveen, [facility] Conversion Computer Education Teacher Cerner at 12/08/2022 12:11 PM CDT documented in this encounter Plan of Treatment Not on file documented as of this encounter Visit Diagnoses Not on filedocumented in this encounter
--- OUTSIDE RECORDS SUMMARY | 2025-05-09 13:08 | XMS_ITS | Encounter Summary ---
Author Organization [employer] ([place], [place], [place], [place]) Address [address] [place] [address] Care Team Providers Care Rustic Fence Builder Name Role Phone Unavailable Primary Care Provider Unavailabl e Encounter Details Date Type Department Care Team (Late st Contact Info) Description 11/17/2018 Transcribed Document [facility] [place] [address] [place] [address] ProviderErika MD [address] [place] [address] Social History Tobacco Use Types Packs/Day Years Used Date Smoking Tobacco: Never Assessed Sex and Gender Information Value Date Recorded Sex Assigned at Not on file Legal Sex Male 5:03 PM CDT Gender Identity Not on file Sexual Orientation Not on file documented as of this encounter Miscellaneous Notes * Cerner Conversion Note - Historical ProviderMD - 11/17/2018 2:00 AM CDT Scanning Clerk Details Entered On: 11/17/2018 7:39 EDT Performed [...]
--- OUTSIDE RECORDS SUMMARY | 2025-05-09 13:08 | XMS_ITS | Encounter Summary ---
Author Organization [employer] ([place], [place], [place], [place]) Address [address] [place] [address] Care Team Providers Care Pre K Special Education Teacher Name Role Phone Unavailable Primary Care Provider Unavailabl e Encounter Details Date Type Department Care Team (Late st Contact Info) Description 11/22/2018 Transcribed Document [facility] [place] [address] [place] [address] ProviderErika MD [address] [place] [address] Social History Tobacco Use [...] Source : Measured Height Entry Format : [place] Height, Feet : 6 ft Height, Inches [...]
--- OUTSIDE RECORDS SUMMARY | 2025-05-09 13:08 | XMS_ITS | Encounter Summary ---
Author Organization [employer] ([place], [place], [place], [place]) Address [address] [place] [address] Care Team Providers Care Assistant Dean Of Students Name Role Phone Unavailable Primary Care Provider Unavailabl e Encounter Details Date Type Department Care Team (Late st Contact Info) Description 11/30/2018 Transcribed Document [facility] [place] Family Medicine [address] [place] [address] ProviderErika MD [address] [place] [address] Social History Tobacco Use Types [...]
--- OUTSIDE RECORDS SUMMARY | 2025-05-09 13:08 | XMS_ITS | Encounter Summary ---
Author Organization [employer] ([place], [place], [place], [place]) Address [address] [place] [address] Care Team Providers Care Community Support Specialist Name Role Phone Unavailable Primary Care Provider Unavailabl e Encounter Details Date Type Department Care Team (Late st Contact Info) Description 11/22/2018 Transcribed Document [facility] [place] [address] [place] [address] ProviderErika MD [address] [place] [address] Social History Tobacco Use Types [...] D Community Services : Outpt Cardiac Rehab [facility] [phone] F [phone] They will call pt w/ appt time. SUZANNA HAINES, Finished Cloth Examiner - 11/30/2018 15:30 EDT Driving After Discharge : Do not drive, Other: No driving or operating heavy machinery until released by a physician. JAY JAY CRESPO MD-NEU - 11/22/2018 11:16 EDT documented in this encounter Plan of Treatment Not on file documented as of this encounter Visit Diagnoses Not on filedocumented in this encounter
--- OUTSIDE RECORDS SUMMARY | 2025-05-09 13:08 | XMS_ITS | Encounter Summary ---
Author Organization [employer] ([place], [place], [place], [place]) Address [address] [place] [address] Care Team Providers Care Offset Plate Maker Name Role Phone Unavailable Primary Care Provider Unavailabl e Encounter Details Date Type Department Care Team (Late st Contact Info) Description 11/30/2018 Transcribed Document [facility] [place] [address] [place] [address] ProviderErkia MD [address] [place], [place] [phone] Social History Tobacco Use Types Packs/Day Years [...] Non-distended, Normal bowel sounds. Integumentary: Warm, Dry, [place], incision is C/D/I. Neurologic: Alert, left sided [...] (Current Encounter/Past 24 Hours) PT 27.4 Second(s) NE 11/30/2018 07:23 INR 2.6 NE 11/30/2018 07:23 . 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 Tomorrow 11/28/18: -POD#12 -BP in [...] has been set up. -Transferred to [facility] 11/29/18: -POD#13 -Upper endoscopy showed duodenal [...] D/C due to GI bleed. -Transfer to [facility] 11/30/18 POD # 14 EGD yesterday [...] - Discharge, Medical. Electronically signed by Interface, [facility] Conversion Solutions Delivery Consultant Cerner at 12/08/2022 12:34 PM CDT documented in this encounter Plan of Treatment Not on file documented as of this encounter Visit Diagnoses Not on filedocumented in this encounter
--- OUTSIDE RECORDS SUMMARY | 2025-05-09 13:08 | XMS_ITS | Encounter Summary ---
Author Organization [employer] ([place], [place], [place], [place]) Address [address] [place] [address] Care Team Providers Care Color Strainer Name Role Phone Unavailable Primary Care Provider Unavailabl e Encounter Details Date Type Department Care Team (Late st Contact Info) Description 11/22/2018 Transcribed Document [facility] [place] [address] [place] [address] ProviderErika MD [address] [place] [address] Social History Tobacco Use [...] On: 11/22/2018 13:55 EDT by ODALYS FAULKNER Rn-Mailroom PersonnelSupervisor Accounting Clerks Note Care Management Note : 11/22/18 Pt has had a cva. Spoke to his Connie and son Sumeet at the bedside. Pt is lfacid on the left side. Discussed the need for STR and they decided on [facility]. Sent pt info via [employer] to [facility]. CF Documentation Status Complete : Yes ODALYS FAULKNER Rn-Mailroom Personnel - 11/22/2018 13:55 EDT Patient History Emergency Contact #1 : Connie Emergency Contact #1 (H) Emergency Contact #1 Relationship : Emergency Contact #2 : Sheridan Fernando Emergency Contact #2 (C) Emergency Contact #2 Relationship : daughter Living Situation : Home Patient Lives With : Spouse Current Home Treatments : None Patient History Note Report : ODALYS FAULKNER Rn-Mailroom Personnel - 11/17/18 11:25:13 11/17/18 Pt sleeping and [...] when pt is awake. CF ODALYS FAULKNER Rn-Mailroom Personnel - 11/22/2018 13:55 EDT Electronically signed by [facility] Conversion Trim Die Maker Cerner at 12/08/2022 12:32 PM CDT documented in this encounter Plan of Treatment Not on file documented as of this encounter Visit Diagnoses Not on filedocumented in this encounter
--- OUTSIDE RECORDS SUMMARY | 2025-05-09 13:08 | XMS_ITS | Encounter Summary ---
Author Organization [employer] ([place], [place], [place], [place]) Address [address] [place] [address] Care Team Providers Care Reversal Print Inspector Name Role Phone Unavailable Primary Care Provider Unavailabl e Encounter Details Date Type Department Care Team (Late st Contact Info) Description 11/17/2018 Transcribed Document [facility] [place] [address] [place] [address] ProviderErika MD [address] [place] [address] Social History Tobacco Use Types [...]
--- OUTSIDE RECORDS SUMMARY | 2025-05-09 13:08 | XMS_ITS | Encounter Summary ---
Author Organization [employer] ([place], [place], [place], [place]) Address [address] [place] [address] Care Team Providers Care Transactional Paralegal Name Role Phone Unavailable Primary Care Provider Unavailabl e Encounter Details Date Type Department Care Team (Late st Contact Info) Description 11/22/2018 Transcribed Document [facility] [place] Family Medicine [address] [place] [address] ProviderErika MD [address] [place], [place] [id number] Social History Tobacco Use Types Packs/Day Years Used Date Smoking Tobacco: Never Assessed Sex and Gender Information Value Date Recorded Sex Assigned at Not on file Legal Sex Male 5:03 PM CDT Gender Identity Not on file Sexual Orientation Not on file documented as of this encounter Miscellaneous Notes * [employer]ner Conversion Note - Historical ProviderMD - 11/22/2018 2:00 AM CDT [facility] Sales Details Entered On: 11/22/2018 6:09 EDT Performed [...] Amanda Sigala RN - 11/22/2018 6:09 EDT Electronically signed by Christina Saini Conversion Learning Disabilities Teacher Cerner at 12/08/2022 12:17 PM CDT documented in this encounter Plan of Treatment Not on file documented as of this encounter Visit Diagnoses Not on filedocumented in this encounter
--- OUTSIDE RECORDS SUMMARY | 2025-05-09 13:08 | XMS_ITS | Encounter Summary ---
Author Organization [employer] ([place], [place], [place], [place]) Address [address] [place] [address] Care Team Providers Care Charge Entry Name Role Phone Unavailable Primary Care Provider Unavailabl e Encounter Details Date Type Department Care Team (Late st Contact Info) Description 11/17/2018 Transcribed Document [facility] [place] [address] [place] [address] ProviderErika MD [address] [place], [...] EDT Electronically signed by Christina Saini Conversion Electrolysis Needle Operator Cerner at 12/08/2022 12:19 PM CDT documented in this encounter Plan of Treatment Not on file documented as of this encounter Visit Diagnoses Not on filedocumented in this encounter
--- OUTSIDE RECORDS SUMMARY | 2025-05-09 13:08 | XMS_ITS | Encounter Summary ---
Author Organization [employer] ([place], [place], [place], [place]) Address [address] [place] [address] Care Team Providers Care Freight Car Repairer Name Role Phone Unavailable Primary Care Provider Unavailabl e Encounter Details Date Type Department Care Team (Late st Contact Info) Description 11/22/2018 Transcribed Document [facility] [place] [address] [place] [address] ProviderErika MD [address] [place] [address] Social History Tobacco Use Types [...] unspecified 11/17/2018 00:00 Atherosclerotic heart disease of [place] coronary artery without angina pectoris 11/17/2018 00:00 Essential (primary) hypertension 11/17/2018 00:00 Hypothyroidism, unspecified 11/17/2018 00:00 Nonrheumatic aortic (valve) insufficiency 11/17/2018 00:00 Restless legs syndrome 11/17/2018 00:00 Thoracic aortic aneurysm, without rupture 11/17/2018 00:00 Thrombocytopenia, unspecified 11/16/2018 00:00 Atherosclerotic heart disease of [place] coronary artery without angina pectoris 11/16/2018 00:00 [...] TARI MOORE OTR/L 11/23/2018 15:10 EDT Hand Teletype Technician Test : trace with digits TARI MOORE [...] TARI MOORE OTR/Ginny - 11/23/2018 15:10 EDT Vehicle Sales Professional Goals, OT Self Feeding LTG Grid Goal [...]
--- OUTSIDE RECORDS SUMMARY | 2025-05-09 13:08 | XMS_ITS | Encounter Summary ---
Author Organization [employer] ([place], [place], [place], [place]) Address [address] [place] [address] Care Team Providers Care Ear Nose Throat Physician Name Role Phone Unavailable Primary Care Provider Unavailabl e Encounter Details Date Type Department Care Team (Late st Contact Info) Description 11/29/2018 Transcribed Document [facility] [place] [address] [place] [address] ProviderErika MD [address] [place] [address] Social History Tobacco Use Types Packs/Day Years Used Date Smoking Tobacco: Never Assessed Sex and Gender Information Value Date Recorded Sex Assigned at Not on file Legal Sex Male 5:03 PM CDT Gender Identity Not on file Sexual Orientation Not on file documented as of this encounter Miscellaneous Notes * Cerner Conversion Note - Historical ProviderMD - 11/29/2018 11:15 AM CDT TAILMAN Attempt to Treat Entered On: 11/29/2018 11:15 [...]
--- OUTSIDE RECORDS SUMMARY | 2025-05-09 13:08 | XMS_ITS | Encounter Summary ---
Author Organization [employer] ([place], [place], [place], [place]) Address [address] [place] [address] Care Team Providers Care Equipment Operator Wage Hand Name Role Phone Unavailable Primary Care Provider Unavailabl e Encounter Details Date Type Department Care Team (Late st Contact Info) Description 11/29/2018 Transcribed Document [facility] [place] [address] [place] [address] ProviderErika MD [address] [place] [address] Social History Tobacco Use Types [...] VILLASENOR /Sex: 1940 Male Med Rec #: [id number] Physician: JULIO CESAR CARVALHO MD-[facility] Financial #: [id number] Pt. Type: I Room/Bed: [facility]/ Admit/Disch: 11/16/18 06:45:00 - Institution: [facility] Endo - Case Attendance Entry 1 Entry 2 Entry 3 Case Attendee RIGOBERTO YU MD Reynolds, Ashley N, RN JONNATHAN LUBIN Role Performed Surgeon/Proceduralist, Ict Security Specialist, First Scrub, First First Time In 11/29/18 [...] Patino Crna CORNEA, MIHAELA, MD Role Performed STREET COMMISSIONER/Nurse Ecological Economist Anesthesiologist of Record Time In 11/29/18 14:47:00 11/29/18 14:47:00 Time Out 11/29/18 15:09:00 11/29/18 15:09:00 Procedure EGD w Control Bleeding EGD w Control Bleeding Other Attendee Superficial Wound Closed By: Last Modified By: Gem Parekh RN Reynolds, Ashley N, RN 11/29/18 15:06:55 11/29/18 15:06:55 [facility] Endo - Case Attendance Audit 11/29/18 15:06:55 Circuit Design Engineer: [email or web address] Modifier: [email or web address] 1 <+> Time Out 1 <*> Procedure EGD w Control Bleeding 2 <+> Time Out 2 <*> Procedure EGD w Control Bleeding 3 <+> Time Out 3 <*> Procedure EGD w Control Bleeding 4 <+> Time Out 4 <*> Procedure EGD w Control Bleeding 5 <+> Time Out 5 <*> Procedure EGD w Control Bleeding 11/29/18 14:59:16 Circuit Design Engineer: [email or web address] Modifier: [email or web address] <+> 1 Procedure <+> 2 Procedure <+> 3 Procedure <+> 4 Procedure <+> 5 Procedure 11/29/18 14:59:14 Circuit Design Engineer: [email or web address] Modifier: [email or web address] 1 <-> Procedure Esophagogastroduodenoscopy 2 <-> Procedure Esophagogastroduodenoscopy 3 <-> Procedure Esophagogastroduodenoscopy 4 <-> Procedure Esophagogastroduodenoscopy 5 <-> Procedure Esophagogastroduodenoscopy 11/29/18 14:49:19 Circuit Design Engineer: [email or web address] Modifier: [email or web address] 1 <*> Procedure Esophagogastroduodenoscopy 2 <+> Time In 2 <*> Procedure Esophagogastroduodenoscopy 3 <+> Time In 3 <*> Procedure Esophagogastroduodenoscopy 4 <+> Time In 4 <*> Procedure Esophagogastroduodenoscopy 5 <+> Time In 5 <*> Procedure Esophagogastroduodenoscopy 11/29/18 14:48:29 Circuit Design Engineer: [email or web address] Modifier: [email or web address] 1 <+> Time In [...] Endo - Case times Audit 11/29/18 15:06:53 Circuit Design Engineer: [email or web address] Modifier: [email or web address] <+> 1 Out Room Time <+> 1 Stop Time <+> 1 Stop Time 11/29/18 14:51:51 Circuit Design Engineer: [email or web address] Modifier: [email or web address] <+> 1 Start Time [...] Patient Transport Gem Parekh RN, Accompanied by Casise Patino Crna Last Modified By: Gem Parekh [...] 14:48:48 [facility] Endo - General Case Rug Sizer 1 Case Information OR Endo 01 [facility] [...] CLIP II RESOLUTION CLIP II RESOLUTION Identification [id number] Description Implant Quantity 1 1 Implant Site Implant Identification Model Number Implant Identification Serial Number Implant [id number] Identification Lot Number Implant Napoleon Sci:Interv Napoleon Sci:Interv Identification Cardiology Cardiology City Bus Driver Name: Implant 3 [id number] Identification Catalog Number Implant Size Implant Has an Yes Yes Expiration Date Implant Expiration 09/05/21 07/10/21 Date Wasted Radioactive Material Time Implanted Tissue Implant Continue for Tissue Implant Documentation Tissue Identification Number Graft Prep Per City Bus Driver Instructions: Tissue Preparation Method: Reconstitution Solution: Reconstitution Solution Lot Number Reconstitution Solution Expiration Date: Thawing Solution Thawing Solution Lot Number Thawing Solution Expiration Date Preparation Materials, Other Preparation Materials, Other Lot Number Preparation Materials, Other Expiration Date Tissue Prepared/Processed By City Bus Driver Paperwork Completed Implant Type Comment clip failed Last Modified By: Gem Parekh RN Reynolds, Ashley N, RN 11/29/18 15:00:27 11/29/18 15:06:45 [facility] Endo - Implant Log Audit 11/29/18 15:06:45 Circuit Design Engineer: GARY Modifier: [email or web address] 2 <*> Implant Identification Description CLIP II RESOLUTION [id number] <+> Implant Type Comment 11/29/18 15:04:27 Circuit Design Engineer: [email or web address] Modifier: [email or web address] <+> 2 Implant Identification Description <+> 2 Implant Identification Lot Number <+> 2 Implant Identification City Bus Driver Name: <+> 2 Implant Expiration Date <+> [...] Endo - Intraoperative Equipment Audit 11/29/18 14:56:48 Circuit Design Engineer: [email or web address] Modifier: [email or web address] <+> 2 Photo <+> [...] Endo - Patient Positioning Audit 11/29/18 14:59:16 Circuit Design Engineer: [email or web address] Modifier: [email or web address] <+> 1 Procedure 11/29/18 14:59:14 Circuit Design Engineer: [email or web address] Modifier: [email or web address] 1 <-> Procedure Esophagogastroduodenoscopy [...] Endo - Surgical Procedures Audit 11/29/18 15:07:04 Circuit Design Engineer: [email or web address] Modifier: [email or web address] <+> 1 Stop 11/29/18 14:59:15 Circuit Design Engineer: [email or web address] Modifier: [email or web address] 1 <*> Procedure Esophagogastroduodenoscopy 1 <+> Start 11/29/18 14:49:23 Circuit Design Engineer: [email or web address] Modifier: [email or web address] 1 <*> Procedure Esophagogastroduodenoscopy [...] Endo - Time Out Audit 11/29/18 14:59:17 Circuit Design Engineer: [email or web address] Modifier: [email or web address] <+> 1 Procedure to be Performed 11/29/18 14:59:15 Circuit Design Engineer: [email or web address] Modifier: [email or web address] 1 <-> Procedure to be Performed Esophagogastroduodenoscopy Case Comments <None> Finalized By: Gem Parekh RN Document Signatures Signed By: Gem Parekh RN 11/29/18 15:07 Electronically signed by Parveen [facility] Conversion Car Park Attendant Cerner at 12/08/2022 12:33 PM CDT documented in this encounter Plan of Treatment Not on file documented as of this encounter Visit Diagnoses Not on filedocumented in this encounter
--- OUTSIDE RECORDS SUMMARY | 2025-05-09 13:08 | XMS_ITS | Encounter Summary ---
Author Organization [employer] ([place], [place], [place], [place]) Address [address] [place] [address] Care Team Providers Care Cdl Truck Driver Name Role Phone Unavailable Primary Care Provider Unavailabl e Encounter Details Date Type Department Care Team (Late st Contact Info) Description 11/30/2018 Transcribed Document [facility] [place] [address] [place] [address] ProviderErika MD [address] [place] [address] Social History Tobacco Use Types [...]
--- OUTSIDE RECORDS SUMMARY | 2025-05-09 13:08 | XMS_ITS | Encounter Summary ---
Author Organization [employer] ([place], [place], [place], [place]) Address [address] [place] [address] Care Team Providers Care Lab Head Name Role Phone Unavailable Primary Care Provider Unavailabl e Encounter Details Date Type Department Care Team (Late st Contact Info) Description 11/29/2018 Transcribed Document [facility] [place] [address] [place] [address] ProviderErika MD [address] [place] [address] Social History Tobacco Use Types Packs/Day Years Used Date Smoking Tobacco: Never Assessed Sex and Gender Information Value Date Recorded Sex Assigned at Not on file Legal Sex Male 5:03 PM CDT Gender Identity Not on file Sexual Orientation Not on file documented as of this encounter Miscellaneous Notes * Cerner Conversion Note - Erika ProviderMD - 11/29/2018 2:30 PM CDT [facility] Onel PreOp Summary Primary Physician: RIGOBERTO YU MD Finalized Date/Time: 11/29/18 14:12:35 Pt. Name: DOTTIE VILLASENOR Ladan /Sex: 1940 Male Med Rec #: [id number] Physician: JULIO CESAR CARVALHO [facility] Financial #: [id number] Pt. Type: I Room/Bed: 330/1 Admit/Disch: 11/16/18 06:45:00 - Institution: [facility] Onel PreOp Case Times Entry 1 In Preop 11/29/18 13:59:00 Ready for Holding n/a Room Patient Ready for 11/29/18 14:12:00 Surgery Patient Out of Preop 11/29/18 14:12:00 Patient Out of n/a Holding Room Last Modified By: Gem Osborne Rn 11/29/18 14:12:33 [facility] Endo PreOp Case Times Audit 11/29/18 14:12:33 Group Home Worker: ASHLEYSTAPLETON Modifier: [email or web address] <+> 1 Patient Out of Preop <+> 1 Patient Ready for Surgery Finalized By: Gem Osborne Rn Document Signatures Signed By: Gem Osborne Rn 11/29/18 14:12 documented in this encounter Plan of Treatment Not on file documented as of this encounter Visit Diagnoses Not on filedocumented in this encounter
--- OUTSIDE RECORDS SUMMARY | 2025-05-09 13:08 | XMS_ITS | Encounter Summary ---
Author Organization [employer] ([place], [place], [place], [place]) Address [address] [place] [address] Care Team Providers Care Educational Advisor Name Role Phone Unavailable Primary Care Provider Unavailabl e Encounter Details Date Type Department Care Team (Late st Contact Info) Description 11/22/[address] [facility] [place] [address] [place] [address] ProviderErika MD [address] [place] [address] Social History Tobacco Use Types [...]
--- OUTSIDE RECORDS SUMMARY | 2025-05-09 13:08 | XMS_ITS | Encounter Summary ---
Author Organization [employer] ([place], [place], [place], [place]) Address [address] [place] [address] Care Team Providers Care Tilt Tray Driver Name Role Phone Unavailable Primary Care Provider Unavailabl e Encounter Details Date Type Department Care Team (Late st Contact Info) Description 11/22/2018 Transcribed Document [facility] [address] [place] [address] ProviderErika MD [address] [place] [address] Social History Tobacco Use Types Packs/Day Years Used Date Smoking Tobacco: Never Assessed Sex and Gender Information Value Date Recorded Sex Assigned at Not on file Legal Sex Male 5:03 PM CDT Gender Identity Not on file Sexual Orientation Not on file documented as of this encounter Miscellaneous Notes * Cerner Conversion Note - Historical ProviderMD - 11/22/2018 12:18 PM CDT GASOLINE POWER SHOVEL OPERATOR Attempt to Treat Entered On: 11/22/2018 12:20 EDT Performed On: 11/22/2018 12:18 EDT by JOSSUE RODRÍGUEZ SLP Attempt to Treat Inability to Treat Comment : New orders received from Neurologist. ST is currently following pt for dysphagia. Will await neuro dx for full communication JOSSUE Mccarthy, GASOLINE POWER SHOVEL OPERATOR - 11/22/2018 12:18 EDT documented in this encounter Plan of Treatment Not on file documented as of this encounter Visit Diagnoses Not on filedocumented in this encounter
--- OUTSIDE RECORDS SUMMARY | 2025-05-09 13:08 | XMS_ITS | Encounter Summary ---
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 Respiratory Assessment Comment : Nasal cannula MAMTA SOLO, ERIC - 11/23/2018 14:12 EDT Visit Type, FLEECE TIER : Initial evaluation Patient Orders : Speech Language Pathology Evaluation and Treatment -111 Start: 11/22/18 11:18:00 EDT, Routine, For Speech Language Cognitive Eval and Treat - JAY JAY CRESPO MD-DIANE FLEECE TIER Fxnl Limitation Documentation - Start: 11/20/18 9:37:47 EDT, Continuous Order -111 SYSTEM, SYSTEM Speech Language Pathology Additional Tx - Start: 11/20/18 9:36:00 EDT, For Dysphagia, Continuous Order -111 Admission Date : Admission Date/Time: 11/16/18 06:45:00 Medical Chart Reviewed, FLEECE TIER : Yes Personal Devices : Personal Devices No Devices Recorded Assistive Devices : Assistive Devices No Devices Recorded Active Diagnoses : 11/23/2018 00:00 Cerebral infarction, unspecified 11/17/2018 00:00 Atherosclerotic heart disease of [place] coronary artery without angina pectoris 11/17/2018 00:00 Essential (primary) hypertension 11/17/2018 00:00 Hypothyroidism, unspecified 11/17/2018 00:00 Nonrheumatic aortic (valve) insufficiency 11/17/2018 00:00 Restless legs syndrome 11/17/2018 00:00 Thoracic aortic aneurysm, without rupture 11/17/2018 00:00 Thrombocytopenia, unspecified 11/16/2018 00:00 Atherosclerotic heart disease of [place] coronary artery without angina pectoris 11/16/2018 00:00 [...] Gag Reflex Intact : Yes Intubation Comment, FLEECE TIER : 11/16-11/17 Vital Signs RTF : Vitals [...] Wt: 11/15 79.2 kg 174 lb MAMTA SLOO SLP - 11/23/2018 13:41 EDT General Status Patient Received Status, FLEECE TIER : Supine in bed Patient Left Status, FLEECE TIER : Supine in bed MAMTA SOLO SLP [...] Oral Mechanism for Daily Living : Intact FLEECE TIER Cough : Weak MAMTA SOLO SLP - [...] 14:12 EDT Evaluation Methods Types of Evaluation, FLEECE TIER : Informal MAMTA SOLO SLP - 11/23/2018 14:12 EDT [facility] Impressions Impressions, Speech/Lang/Cog : Other: Mixed expressive/receptive communication impairment [facility] Overall Impressions : Communication evaluation completed given [...] - 11/23/2018 14:12 EDT Therapy Indication Assessment FLEECE TIER Indicated : Yes FLEECE TIER Interdisciplinary Consultation Needs : No FLEECE TIER Problem List : Impaired, Spoken Language Comprehension, Impaired, Spoken Language Expression MAMTA SOLO SLP - 11/23/2018 14:12 EDT LTG Lang/Comm/Cog LTG FLEECE TIER Fpc Goal 1 Fpc Goal 2 Goals : Improved spoken language [...] Grid Goal #1 Activity : Other: Probe MATMA SOLO SLP - 11/23/2018 14:12 EDT Memory [...] MAMTA SOLO SLP - 11/23/2018 14:12 EDT FLEECE TIER Education Assessment Grid 1 Evaluation Results : Verbalizes understanding MAMTA SOLO SLP - 11/23/2018 14:12 EDT FLEECE TIER Education Assessment Grid 2 Treatment Plan : Verbalizes understanding MAMTA SOLO SLP - 11/23/2018 14:[address] [facility] Evaluation of Speech Production & Language : 1 MAMTA SOLO SLP - 11/23/2018 14:12 EDT Anticipated Discharge Needs, FLEECE TIER Anticipated Discharge to OT : Rehab, high intensity Recommend Continued Therapy at Discharge : Yes MAMTA SOLO SLP - 11/23/2018 14:12 EDT documented in this encounter Plan of Treatment Not on file documented as of this encounter Visit Diagnoses Not on filedocumented in this encounter
--- OUTSIDE RECORDS SUMMARY | 2025-05-09 13:08 | XMS_ITS | Encounter Summary ---
Author Organization [employer] ([place], [place], [place], [place]) Address [address] [place] [address] Care Team Providers Care Seniour Insight Manager Name Role Phone Unavailable Primary Care Provider Unavailabl e Encounter Details Date Type Department Care Team (Late st Contact Info) Description 11/25/2018 Transcribed Document [facility] [place] [address] [place] [address] ProviderErika MD [address] [place] [address] Social History Tobacco Use Types [...] MONSERRAT MERINO RPh - 11/25/2018 11:42 EDT Electronically signed by Christina Saini Conversion Development System Efficiency Manager Felipe at 12/08/2022 12:18 PM CDT documented in this encounter Plan of Treatment Not on file documented as of this encounter Visit Diagnoses Not on filedocumented in this encounter
--- OUTSIDE RECORDS SUMMARY | 2025-05-09 13:08 | XMS_ITS | Encounter Summary ---
Author Organization [employer] ([place], [place], [place], [place]) Address [address] [place] [address] Care Team Providers Care Casting Plug Assembler Name Role Phone Unavailable Primary Care Provider Unavailabl e Encounter Details Date Type Department Care Team (Late st Contact Info) Description 11/30/2018 Transcribed Document [facility] [place] [address] [place] [address] ProviderErika MD [address] [place] [address] Social History Tobacco Use Types [...] 2 Tab, Oral, BID saliva substitutes, 1 [place], Buccal, Q2H, PRN Senokot, 17.2 mg= 2 Tab, Oral, BID Synthroid, 50 mcg= 2.5 mL, IV Push, Q48H Zofran, 4 mg= 2 mL, IV Push, Q4H, PRN documented in this encounter Plan of Treatment Not on file documented as of this encounter Visit Diagnoses Not on filedocumented in this encounter
--- OUTSIDE RECORDS SUMMARY | 2025-05-09 13:08 | XMS_ITS | Encounter Summary ---
Author Organization [employer] ([place], [place], [place], [place]) Address [address] [place] [address] Care Team Providers Care Fish And Wildlife Warden Name Role Phone Unavailable Primary Care Provider Unavailabl e Encounter Details Date Type Department Care Team (Late st Contact Info) Description 11/30/2018 Transcribed Document [facility] [place] [facility] [place] [address] ProviderErika MD [address] [place] [address] Social History Tobacco Use Types [...] Jose MD - 11/30/2018 3:31 PM CDT [address] [address] Patient Copy Patient Information: Name: DOTTIE VILLASENOR Current Date: 11/30/2018 15:31:38 : 1940 Patient Address: [address] [place] [id number] Patient Attending Physician: JULIO CESAR CARVALHO MD-[facility] Primary Care Provider: DEMETRICE ARMIJO NP-[facility] Primary Care Provider Discharge Diagnosis: Acute blood loss anemia; Aortic insufficiency; Coronary artery disease; GI bleed; LUE DVT (deep venous thrombosis); Right MCA CVA (cerebral vascular accident); Thoracic ascending aortic aneurysm Weight on Admission: 174 lb, 5 oz Weight at Discharge: 164 lb, 1 oz Comment: Follow-up Instructions: With: Address: When: JOHN BOWEN [address], [address] [place] [address] Business (1) Within 6 weeks Comments: Patient should call for a follow up appointment with [facility]. Discharge Instructions: Driving after Discharge: Do not drive, Other: No driving or operating heavy machinery until released by a physician. Community Services: Outpt Cardiac Rehab [facility] [phone] They will call pt w/ appt time. [...] 09/17/2005 Document Revised: 01/15/2017 Document Reviewed: 02/10/2014 [employer] Interactive Patient Education ? 2017 [employer] CIGARETTE SMOKING: The facts are clear, cigarette smoking will shorten your life. Smoking can cause many illnesses along the way. As a healthcare provider, we recommend that you stop smoking. Assistance with quitting is available by contacting 3-688-CRIF-NOW. This is a free resource providing counseling, [...] Be sure to sign up for the [employer] patient portal, which gives you 16/03 access to your medical information ??? including these discharge instructions ??? using your computer, smartphone, or tablet. Just go to [employer] to get started. Questions? Call . [facility] would like to thank you for allowing us to assist you with your healthcare needs. HAMILTON Jarvis ROBERT H, (or premium service representative) have received the above patient education materials/instructions and have verbalized understanding: Patient Signature _ Date/Time Patient Board Of Education Secretary Signature (if needed) Date/Time Clinician/Hospital Board Of Education Secretary Signature (if needed) Date/Time Electronically signed by Parveen [facility] Conversion Spin Instructor Felipe at 12/08/2022 12:33 PM CDT documented in this encounter Plan of Treatment Not on file documented as of this encounter Visit Diagnoses Not on filedocumented in this encounter
--- OUTSIDE RECORDS SUMMARY | 2025-05-09 13:08 | XMS_ITS | Encounter Summary ---
Author Organization [employer] ([place], [place], [place], [place]) Address [address] [place] [address] Care Team Providers Care Rn Oncology Name Role Phone Unavailable Primary Care Provider Unavailabl e Encounter Details Date Type Department Care Team (Late st Contact Info) Description 11/30/2018 Transcribed Document [facility] [place] Family [place] [address] [place] [address] ProviderErika MD [address] [place] [address] Social History Tobacco Use Types [...]
--- OUTSIDE RECORDS SUMMARY | 2025-05-09 13:08 | XMS_ITS | Encounter Summary ---
Author Organization [employer] ([place], [place], [place], [place]) Address [address] [place] [address] Care Team Providers Care Curb Setter Name Role Phone Unavailable Primary Care Provider Unavailabl e Encounter Details Date Type Department Care Team (Late st Contact Info) Description 11/25/2018 Transcribed Document [facility] [place] Family Medicine [address] [place] [address] ProviderErika MD [address] [place] [address] Social History Tobacco Use Types [...] On: 11/25/2018 12:20 EDT by THERESA CAZARES [facility] Clinical Interventions Heparin Per Weight-Based Protocol : Yes THERESA CAZARES [facility] - 11/25/2018 12:20 EDT Heparin Per Weight-Based [...] 11/25/2018 12:20 EDT Electronically signed by Parveen [facility] Conversion Cement Rubber Cerner at 12/08/2022 12:35 PM CDT documented in this encounter Plan of Treatment Not on file documented as of this encounter Visit Diagnoses Not on filedocumented in this encounter
--- OUTSIDE RECORDS SUMMARY | 2025-05-09 13:08 | XMS_ITS | Encounter Summary ---
Author Organization [employer] ([place], [place], [place], [place]) Address [address] [place] [address] Care Team Providers Care Booster Operator Name Role Phone Unavailable Primary Care Provider Unavailabl e Encounter Details Date Type Department Care Team (Late st Contact Info) Description 11/18/2018 Transcribed Document [facility] [place] [address] [place] [address] ProviderErika MD [address] [place] [address] Social History Tobacco Use Types [...] : 11/17/2018 00:00 Atherosclerotic heart disease of nome coronary artery without angina pectoris 11/17/2018 00:00 Essential (primary) hypertension 11/17/2018 00:00 Hypothyroidism, unspecified 11/17/2018 00:00 Nonrheumatic aortic (valve) insufficiency 11/17/2018 00:00 Restless legs syndrome 11/17/2018 00:00 Thoracic aortic aneurysm, without rupture 11/17/2018 00:00 Thrombocytopenia, unspecified 11/16/2018 00:00 Atherosclerotic heart disease of nome coronary artery without angina pectoris 11/16/2018 00:00 [...] SENIA QUINTANA PTA - 11/23/2018 10:24 EDT Usp Goals Mobility/Bed Mobility LTG PT Grid Goal [...] SENIA QUINTANA PTA - 11/23/2018 10:24 EDT [place] PT Charges PT Therap. Exercise 15 min : 1 PT Ther Activities Ea 15 Min : 1 SENIA QUINTANA PTA - 11/23/2018 10:24 EDT documented in this encounter Plan of Treatment Not on file documented as of this encounter Visit Diagnoses Not on filedocumented in this encounter
--- OUTSIDE RECORDS SUMMARY | 2025-05-09 13:08 | XMS_ITS | Encounter Summary ---
Author Organization [employer] ([place], [place], [place], [place]) Address [address] [place] [address] Care Team Providers Care Polymerization Engineer Name Role Phone Unavailable Primary Care Provider Unavailabl e Encounter Details Date Type Department Care Team (Late st Contact Info) Description 11/29/2018 Transcribed Document [facility] [place] Family Medicine [address] [place] [address] ProviderErika MD [address] [place], [place] [id number] Social History Tobacco Use Types Packs/Day Years Used Date Smoking Tobacco: Never Assessed Sex and Gender Information Value Date Recorded Sex Assigned at Not on file Legal Sex Male 5:03 PM CDT Gender Identity Not on file Sexual Orientation Not on file documented as of this encounter Miscellaneous Notes * Cerner Conversion Note - Erika ProviderMD - 11/29/2018 1:37 PM CDT Discharge Summary, RUBBER STAMP DIE INSPECTOR Entered On: 11/29/2018 13:40 EDT Performed On: 11/29/2018 13:37 EDT by JOSSUE RODRÍGUEZ RUBBER STAMP DIE INSPECTOR Discharge Notation. RUBBER STAMP DIE INSPECTOR Dysphagia Treatment After Discharge : No Discharge Diet : Regular Discharge Liquids : Thin Discharge Summary Comment, RUBBER STAMP DIE INSPECTOR : Attempted to see pt for language [...] - 11/29/2018 13:37 EDT LTG Lang/Comm/Cog LTG RUBBER STAMP DIE INSPECTOR Group Home Goal 1 Group Home Goal 2 Goals : Improved spoken language expression at the time of discharge Improved auditory/spoken language comprehension at the time of discharge Status : Discontinue Discontinue JOSSUE RODRÍGUEZ SLP - 11/29/2018 13:37 EDT JOSSUE RODRÍGUEZ, [facility] - 11/29/2018 13:37 EDT STG Lang_Comm_Cog Motor Speech STG Grid Goal #1 Activity : Improve intelligibility of speech Status : Discontinue JOSSUE RODRÍGUEZ [facility] - 11/29/2018 13:37 EDT Auditory Comprehension Grid Goal #1 Goal #2 Activity : Follow directions, 3 step commands simple Comprehend paragraph complex Status : Discontinue Discontinue JOSSUE RODRÍGUEZ [facility] - 11/29/2018 13:37 EDT JOSSUE RODRÍGUEZ, [facility] - 11/29/2018 13:37 EDT Verbal Expression STG Grid Goal #1 Activity : Generate items in a category Status : Discontinue JOSSUE RODRÍGUEZ RUBBER STAMP DIE INSPECTOR - 11/29/2018 13:37 EDT Reading Comprehension STG Grid Goal #1 Activity : Visual perception deficits Status : Discontinue JOSSUE RODRÍGUEZ [facility] - 11/29/2018 13:37 EDT Attention STG Grid Goal #1 Activity : Other: Probe Status : Goal met Date Met : 11/24/2018 EDT JOSSUE RODRÍGUEZ [facility] - 11/29/2018 13:37 EDT Memory STG Grid Goal #1 Goal #2 Goal #3 Activity : Other: Probe Improve short term functional delayed Improve short term working memory Status : Goal met Discontinue Discontinue Date Met : 11/24/2018 EDT JOSSUE RODRÍGUEZ, [facility] - 11/29/2018 13:37 EDT JOSSUE RODRÍGUEZ, [facility] - 11/29/2018 13:37 EDT JOSSUE RODRÍGUEZ, [facility] - 11/29/2018 13:37 EDT Problem Solving STG Grid Goal #1 Goal #2 Goal #3 Goal #4 Activity : Generate a list of simple/concrete items Label items in a category, complex/abstract Other: Probe Improve simple problem solving Status : Discontinue Discontinue Goal met Discontinue Date Met : 11/24/2018 EDT JOSSUE RODRÍGUEZ, RUBBER STAMP DIE INSPECTOR - 11/29/2018 13:37 EDT JOSSUE RODRÍGUEZ, [facility] - 11/29/2018 13:37 EDT JOSSUE RODRÍGUEZ, [facility] - 11/29/2018 13:37 EDT JOSSUE RODRÍGUEZ, RUBBER STAMP DIE INSPECTOR - 11/29/2018 13:37 EDT Swallow Plan/Goals Swallow LTG Grid RUBBER STAMP DIE INSPECTOR Group Home Goal #1 RUBBER STAMP DIE INSPECTOR Strategic Advisor Goal #2 Swallow LTG : Establish safe [...]
--- OUTSIDE RECORDS SUMMARY | 2025-05-09 13:08 | XMS_ITS | Encounter Summary ---
Author Organization [employer] ([place], [place], [place], [place]) Address [address] [place] [address] Care Team Providers Care Seed Service Advisor Name Role Phone Unavailable Primary Care Provider Unavailabl e Encounter Details Date Type Department Care Team (Late st Contact Info) Description 11/17/2018 Transcribed Document [facility] [place] [address] [place] [address] ProviderErika MD [address] [place] [address] Social History Tobacco Use Types [...]
--- OUTSIDE RECORDS SUMMARY | 2025-05-09 13:08 | XMS_ITS | Encounter Summary ---
Author Organization [employer] ([place], [place], [place], [place]) Address [address] [place] [address] Care Team Providers Care Control Board Operator Name Role Phone Unavailable Primary Care Provider Unavailabl e Encounter Details Date Type Department Care Team (Late st Contact Info) Description 11/21/2018 Transcribed Document [facility] [place] Family Medicine [address] [place] [address] ProviderErika MD [address] [place] [address] Social History Tobacco Use Types [...] MRI to confirm. -continue asa, statin -Continue PT/OT/BOX TOE CUTTER -control blood pressure, aim for whatever is [...] Tab, Oral, At Bedtime saliva substitutes, 1 [place], Buccal, Q2H, PRN Senokot, 17.2 mg= 2 [...]
--- OUTSIDE RECORDS SUMMARY | 2025-05-09 13:08 | XMS_ITS | Encounter Summary ---
Author Organization [employer] ([place], [place], [place], [place]) Address [address] [place] [address] Care Team Providers Care Manager Loss Prevention Name Role Phone Unavailable Primary Care Provider Unavailabl e Encounter Details Date Type Department Care Team (Late st Contact Info) Description 11/21/2018 Transcribed Document [facility] [place] Family Medicine [address] [place] [address] ProviderErika MD [address] [place] [address] Social History Tobacco Use Types Packs/Day Years Used Date Smoking Tobacco: Never Assessed Sex and Gender Information Value Date Recorded Sex Assigned at Not on file Legal Sex Male 5:03 PM CDT Gender Identity Not on file Sexual Orientation Not on file documented as of this encounter Miscellaneous Notes * Cerner Conversion Note - Historical ProviderMD - 11/21/2018 2:00 AM CDT Sales Center Associate Details Entered On: 11/21/2018 1:40 EDT Performed [...]
--- OUTSIDE RECORDS SUMMARY | 2025-05-09 13:08 | XMS_ITS | Encounter Summary ---
Author Organization [employer] ([place], [place], [place], [place]) Address [address] [place] [address] Care Team Providers Care Requisition Approver Name Role Phone Unavailable Primary Care Provider Unavailabl e Encounter Details Date Type Department Care Team (Late st Contact Info) Description 11/17/2018 Transcribed Document [facility] [place] Family Medicine [address] [place] [address] ProviderErika MD [address] [place] [address] Social History Tobacco Use Types [...] On: 11/17/2018 11:22 EDT by ODALYS FAULKNER Rn-Director Investment BankingDean Of Women Note Documentation Status Complete : Yes ODALYS FAULKNER Rn-Director Investment Banking - 11/17/2018 11:22 EDT Patient History Information [...] when pt is awake. CF ODALYS FAULKNER, Rn-Director Investment Banking - 11/17/2018 11:22 EDT Electronically signed by Parveen hilario Conversion Engineering Technology Instructor Cerner at 12/08/2022 12:11 PM CDT documented in this encounter Plan of Treatment Not on file documented as of this encounter Visit Diagnoses Not on filedocumented in this encounter
--- OUTSIDE RECORDS SUMMARY | 2025-05-09 13:08 | XMS_ITS | Encounter Summary ---
Author Organization [employer] ([place], [place], [place], [place]) Address [address] [place] [address] Care Team Providers Care Style Advisor Name Role Phone Unavailable Primary Care Provider Unavailabl e Encounter Details Date Type Department Care Team (Late st Contact Info) Description 11/30/2018 Transcribed Document [facility] [place] [address] [place] [address] ProviderErika MD [address] [place] [address] Social History Tobacco Use Types [...] 3E room 330. Discussed w/ Carmen from [facility] who is still following pt. She has submitted pt info to for approval. Pt had EGD 11/29 which revealed duodenal ulcer w/ clot but no bleeding, no intervention needed, Off heparin gtt, watching pt's INR and H & H. Speech signed off today, pt is cleared for thins. Met w/ pt and family and informed them of [facility] situation. Also discussed outpt Cardiac Rehab. They prefer to go to [facility]. Phoned them and left msg, [...] (not seen on 11/25/18) followed up with [facility] today regarding possible admission - [...] (not seen on 11/25/18) followed up with [facility] today regarding possible admission - plan is to submit for approval today after being seen by therapy, for their MD approval. Once accepting MD in place, bed in place and patient is medically stable will be able to transfer due to patient not requiring a insurance prior auth. CM will continue to follow. ODALYS FAULKNER Rn-Carbon Coater Machine Operator - 11/24/18 13:22:19 11/24/18 Andra from [facility] called to let me know they started a precert on this pt. CF ODALYS FAULKNER Rn-Carbon Coater Machine Operator - 11/22/18 13:56:32 11/22/18 Pt has had a cva. Spoke to his Connie and son Sumeet at the bedside. Pt is lfacid on the left side. Discussed the need for STR and they decided on [facility]. Sent pt info via [employer] to [facility]. CF Documentation Status Complete : Yes SUZANNA HAINES Rail Track Layer - 11/30/2018 15:24 EDT Discharge Planning Details Persons Assisting Patient at Home : Spouse SUZANNA HAINES Social Worker - 11/30/2018 15:24 EDT Electronically signed by [facility] Conversion Installers Mechanical Felipe at 12/08/2022 12:27 PM CDT documented in this encounter Plan of Treatment Not on file documented as of this encounter Visit Diagnoses Not on filedocumented in this encounter
--- OUTSIDE RECORDS SUMMARY | 2025-05-09 13:08 | XMS_ITS | Encounter Summary ---
Author Organization [employer] ([place], [place], [place], [place]) Address [address] [place] [address] Care Team Providers Care Beef Breaker Name Role Phone Unavailable Primary Care Provider Unavailabl e Encounter Details Date Type Department Care Team (Late st Contact Info) Description 11/21/2018 Transcribed Document [facility] [place] Family Medicine [address] [place] [address] ProviderErika MD [address] [place], [place] [id number] Social History Tobacco Use Types Packs/Day Years [...] Bedtime, Routine HEENT saliva substitutes - 1 [place], Buccal, Liquid, Q2H, PRN for Other (See [...] Radiology results Radiology Results (Last 48 hours) [id number] -- 11/16/2018 06:45 CR Chest 1 Vw Portable (11/20/2018 04:12) Result: PORTABLE CHEST 11/20/2018 4:00 AMHISTORY: Shortness of breathCOMPARISON: 1 day priorFINDINGS: A [place]-Jovanna catheter tip terminates in the SVC. The [place]-Ganzcatheter has been retracted. The cardiac silhouette is [...]
--- OUTSIDE RECORDS SUMMARY | 2025-05-09 13:09 | XMS_ITS | Encounter Summary ---
Author Organization [employer] ([place], [place], [place], [place]) Address [address] [place] [address] Care Team Providers Care Under Trimmer Name Role Phone Unavailable Primary Care Provider Unavailabl e Encounter Details Date Type Department Care Team (Late st Contact Info) Description 12/01/2018 Transcribed Document [facility] [place] Family Medicine [address] [place] [address] ProviderErika MD [address] [place] [address] Social History Tobacco Use Types [...] contain harmful chemicals. FOR MORE INFORMATION ??? [place] [employer]: www.lung.org ??? [place] [employer]: www.cancer.org This information is not intended to replace advice given to you by your health care provider. Make sure you discuss any questions you have with your health care provider. Document Released: 09/17/2005 Document Revised: 12/01/2016 Document Reviewed: 01/30/2014 [employer] Interactive Patient Education ? 2017 [employer] How to Take Your Blood Pressure [...] 07/23/2009 Document Revised: 08/31/2015 Document Reviewed: 10/05/2014 [employer] Interactive Patient Education ? 2017 [employer] How to Take a Pulse Your [...] 02/14/2004 Document Revised: 02/27/2017 Document Reviewed: 01/13/2017 [employer] Interactive Patient Education ? 2017 [employer] Coronary Artery Bypass Grafting, Care After [...] 02/27/2006 Document Revised: 08/31/2015 Document Reviewed: 01/17/2014 [employer] Interactive Patient Education ? 2017 [employer] Bleeding Precautions When on Anticoagulant Therapy [...] can be dangerous for you. ??? Many jtuv-klw-wfkkkwr medicines for pain, colds, or stomach problems [...] provider. Document Released: 07/21/2016 Document Reviewed: 07/21/2016 [employer] Interactive Patient Education ? 2017 [employer] Atrial Fibrillation Introduction Atrial fibrillation is [...] Follow these instructions at home: ??? Take bylo-kyj-fmudwoi and prescription medicines only as told by [...] 02/10/2014 [employer] Interactive Patient Education ? 2017 [employer] documented in this encounter Plan of Treatment Not on file documented as of this encounter Visit Diagnoses Not on filedocumented in this encounter
--- OUTSIDE RECORDS SUMMARY | 2025-05-09 13:09 | XMS_ITS | Encounter Summary ---
Author Organization [employer] ([place], [place], [place], [place]) Address [address] [place] [address] Care Team Providers Care Yarn Comber Name Role Phone Unavailable Primary Care Provider Unavailabl e Encounter Details Date Type Department Care Team (Late st Contact Info) Description 11/25/2018 Transcribed Document [facility] Family Medicine [address] [place] [address] ProviderErika MD [address] [place], [place] [phone] Social History Tobacco Use Types Packs/Day Years [...] Tab, Oral, At Bedtime saliva substitutes, 1 [place], Buccal, Q2H, PRN Senokot, 17.2 mg= 2 Tab, Oral, BID warfarin, 5 mg= 1 Tab, Oral, Daily Zofran, 4 mg= 2 mL, IV Push, Q4H, PRN Electronically signed by Parveen, [facility] Conversion Gill Box Tender Cerner at 12/08/2022 12:38 PM CDT documented in this encounter Plan of Treatment Not on file documented as of this encounter Visit Diagnoses Not on filedocumented in this encounter
--- OUTSIDE RECORDS SUMMARY | 2025-05-09 13:09 | XMS_ITS | Encounter Summary ---
Author Organization [employer] ([place], [place], [place], [place]) Address [address] [place] [address] Care Team Providers Care Book Packer Name Role Phone Unavailable Primary Care Provider Unavailabl e Encounter Details Date Type Department Care Team (Late st Contact Info) Description 11/18/2018 Transcribed Document [facility] [place] [address] [place] [address] ProviderErika MD [address] [place] [address] Social History Tobacco Use Types [...]
--- OUTSIDE RECORDS SUMMARY | 2025-05-09 13:09 | XMS_ITS | Encounter Summary ---
Author Organization [employer] ([place], [place], [place], [place]) Address [address] [place] [address] Care Team Providers Care Parole Hearing Officer Name Role Phone Unavailable Primary Care Provider Unavailabl e Encounter Details Date Type Department Care Team (Late st Contact Info) Description 11/23/2018 Transcribed Document [facility] [place] [address] [place] [address] ProviderErika MD [address] [place] [address] Social History Tobacco Use Types Packs/Day Years Used Date Smoking Tobacco: Never Assessed Sex and Gender Information Value Date Recorded Sex Assigned at Not on file Legal Sex Male 5:03 PM CDT Gender Identity Not on file Sexual Orientation Not on file documented as of this encounter Miscellaneous Notes * Cerner Conversion Note - Historical ProviderMD - 11/23/2018 1:36 PM CDT Locomotive Supervisor Details Entered On: 11/23/2018 16:44 EDT Performed [...] EDT Electronically signed by Christina Saini Conversion Lead Man Over All Dies In Pattern Shop Cerner at 12/08/2022 12:18 PM CDT documented in this encounter Plan of Treatment Not on file documented as of this encounter Visit Diagnoses Not on filedocumented in this encounter
--- OUTSIDE RECORDS SUMMARY | 2025-05-09 13:09 | XMS_ITS | Encounter Summary ---
Author Organization [employer] ([place], [place], [place], [place]) Address [address] [place] [address] Care Team Providers Care Optical Effects Line Up Person Name Role Phone Unavailable Primary Care Provider Unavailabl e Encounter Details Date Type Department Care Team (Late st Contact Info) Description 11/25/2018 Transcribed Document [facility] [place] [address] [place] [address] ProviderErika MD [address] [place], [place] [id number] Social History Tobacco Use Types Packs/Day Years [...] 1940 Associated Diagnoses: CAD (coronary artery disease), [place] coronary artery; Thrombocytopenia; Coronary artery disease; HTN [...] left upper extremity swelling. Integumentary: Warm, Dry, [place], incision is C/D/I. Neurologic: Alert, left sided [...] discharge- CM has sent information to [facility] -Transfer to [facility] 11/24/18 -POD#8 -Awaiting transfer to [facility] -Awaiting response from [facility] 11/25/18 -left upper extremity venous doppler - doppler this am positive for LUE DVT - will start coumadin and heparin bridge -awaiting [facility] EF 55-60% per echo 11/16/18 DVT Prophylaxis: SCDs Diagnosis CAD (coronary artery disease), [place] coronary artery - Admitting, Medical. Thrombocytopenia - [...]
--- OUTSIDE RECORDS SUMMARY | 2025-05-09 13:09 | XMS_ITS | Encounter Summary ---
Author Organization [employer] ([place], [place], [place], [place]) Address [address] [place] [address] Care Team Providers Care Survey Instrument Operator Name Role Phone Unavailable Primary Care Provider Unavailabl e Encounter Details Date Type Department Care Team (Late st Contact Info) Description 11/24/2018 Transcribed Document [facility] [place] [address] [place] [address] ProviderErika MD [address] [place] [address] Social History Tobacco Use Types [...] Bed scale Routine Weight Entry Format : [place] Routine Weight, Pounds : 180 lb Routine Weight, Ounces : 8 oz Routine Weight Calculation : 82.05 kg Height Source : Measured Height Entry Format : [place] Height, Feet : 6 ft Height, Inches [...]
--- OUTSIDE RECORDS SUMMARY | 2025-05-09 13:09 | XMS_ITS | Encounter Summary ---
Author Organization [employer] ([place], [place], [place], [place]) Address [address] [place] [address] Care Team Providers Care Charge Account Identification Clerk Name Role Phone Unavailable Primary Care Provider Unavailabl e Encounter Details Date Type Department Care Team (Late st Contact Info) Description 11/18/2018 Transcribed Document [facility] [place] [address] [place] [address] ProviderErika MD [address] [place] [address] Social History Tobacco Use Types [...] Initial Visit : Yes Referred by : Supervisor Photocomposition initiated Referral Reason Comment : Post-op visit Ministry Provided to : Patient, Family/Significant other Yarsani Preference : [employer] MARCOS GASCA P - 11/18/2018 10:51 EDT [...] other supported, Relationship strengths identified Spiritual and Yarsani : Prayer shared, Spiritual/Yarsani support provided MARCOS GASCA P - 11/18/2018 10:51 EDT Electronically signed by Parveen, [facility] Conversion Hospital Nursing Assistant Cerner at 12/08/2022 12:34 PM CDT documented in this encounter Plan of Treatment Not on file documented as of this encounter Visit Diagnoses Not on filedocumented in this encounter
--- OUTSIDE RECORDS SUMMARY | 2025-05-09 13:09 | XMS_ITS | Encounter Summary ---
Author Organization [employer] ([place], [place], [place], [place]) Address [address] [place] [address] Care Team Providers Care Literacy Consultant Name Role Phone Unavailable Primary Care Provider Unavailabl e Encounter Details Date Type Department Care Team (Late st Contact Info) Description 11/30/2018 Transcribed Document [facility] [place] [address] [place] [address] ProviderErika MD [address] [place] [address] Social History Tobacco Use Types Packs/Day Years Used Date Smoking Tobacco: Never Assessed Sex and Gender Information Value Date Recorded Sex Assigned at Not on file Legal Sex Male 5:03 PM CDT Gender Identity Not on file Sexual Orientation Not on file documented as of this encounter Miscellaneous Notes * Cerner Conversion Note - Historical ProviderMD - 11/30/2018 2:00 AM CDT Patient Relations Manager Details Entered On: 11/30/2018 0:59 EDT Performed [...]
--- OUTSIDE RECORDS SUMMARY | 2025-05-09 13:09 | XMS_ITS | Encounter Summary ---
Author Organization [employer] ([place], [place], [place], [place]) Address [address] [place] [address] Care Team Providers Care Shading Painter Name Role Phone Unavailable Primary Care Provider Unavailabl e Encounter Details Date Type Department Care Team (Late st Contact Info) Description 11/24/2018 Transcribed Document [facility] [place] Family Medicine [address] [place] [address] ProviderErika MD [address] [place] [address] Social History Tobacco Use Types [...] EDT Electronically signed by Christina Saini Conversion Pineapple Plantation Manager Cerner at 12/08/2022 12:32 PM CDT documented in this encounter Plan of Treatment Not on file documented as of this encounter Visit Diagnoses Not on filedocumented in this encounter
--- OUTSIDE RECORDS SUMMARY | 2025-05-09 13:09 | XMS_ITS | Encounter Summary ---
Author Organization [employer] ([place], [place], [place], [place]) Address [address] [place] [address] Care Team Providers Care Card Placer Name Role Phone Unavailable Primary Care Provider Unavailabl e Encounter Details Date Type Department Care Team (Late st Contact Info) Description 12/01/2018 Transcribed Document [facility] [place] Family Medicine [address] [place] [address] ProviderErika MD [address] [place] [address] Social History Tobacco Use Types [...]
--- OUTSIDE RECORDS SUMMARY | 2025-05-09 13:09 | XMS_ITS | Encounter Summary ---
Author Organization [employer] ([place], [place], [place], [place]) Address [address] [place] [address] Care Team Providers Care Wharf Tender Name Role Phone Unavailable Primary Care Provider Unavailabl e Encounter Details Date Type Department Care Team (Late st Contact Info) Description 11/18/[address] [facility] [place] Medicine [address] [place] [address] ProviderErika MD [address] [place] [address] Social History Tobacco Use Types Packs/Day Years Used Date Smoking Tobacco: Never Assessed Sex and Gender Information Value Date Recorded Sex Assigned at Not on file Legal Sex Male 5:03 PM CDT Gender Identity Not on file Sexual Orientation Not on file documented as of this encounter Miscellaneous Notes * Cerner Conversion Note - Historical ProviderMD - 11/18/2018 2:00 AM CDT Sofa Inspector Details Entered On: 11/18/2018 4:41 EDT Performed [...]
--- OUTSIDE RECORDS SUMMARY | 2025-05-09 13:09 | XMS_ITS | Encounter Summary ---
Author Organization [employer] ([place], [place], [place]) Address [address] [place] [address] Care Team Providers Care Equine Dentist Name Role Phone Unavailable Primary Care Provider Unavailabl e Encounter Details Date Type Department Care Team (Late st Contact Info) Description 11/24/2018 Transcribed Document [facility] [place] [address] [place] [address] ProviderErika MD [address] [place] [address] Social History Tobacco Use [...] Historical ProviderMD - 11/24/2018 2:00 AM CDT Electrical Manufacturing Engineer Details Entered On: 11/24/2018 3:36 EDT Performed [...] SHELDON MUELLER RN - 11/24/2018 3:35 EDT Electronically signed by Christina Saini Conversion Balancing Machine Set Up Worker Cerner at 12/08/2022 12:38 PM CDT documented in this encounter Plan of Treatment Not on file documented as of this encounter Visit Diagnoses Not on filedocumented in this encounter
--- OUTSIDE RECORDS SUMMARY | 2025-05-09 13:09 | XMS_ITS | Encounter Summary ---
Author Organization [employer] ([place], [place], [place], [place]) Address [address] [place] [address] Care Team Providers Care Infection Control Practitioner Name Role Phone Unavailable Primary Care Provider Unavailabl e Encounter Details Date Type Department Care Team (Late st Contact Info) Description 11/18/2018 Transcribed Document [facility] [place] Family Medicine [address] [place] [address] ProviderErika MD [address] [place] [address] Social History Tobacco Use [...] Daksha Urrutia, RN - 11/18/2018 19:20 EDT Electronically signed by Christina Saini Conversion Marketing Education Teacher Cerner at 12/08/2022 12:26 PM CDT documented in this encounter Plan of Treatment Not on file documented as of this encounter Visit Diagnoses Not on filedocumented in this encounter
--- OUTSIDE RECORDS SUMMARY | 2025-05-09 13:09 | XMS_ITS | Encounter Summary ---
Author Organization [employer] ([place], [place], [place], [place]) Address [address] [place] [address] Care Team Providers Care Champagne Maker Name Role Phone Unavailable Primary Care Provider Unavailabl e Encounter Details Date Type Department Care Team (Late st Contact Info) Description 11/23/2018 Transcribed Document [facility] [place] [address] [place] [address] ProviderErika MD [address] [place], [...] Tab, Oral, At Bedtime saliva substitutes, 1 [place], Buccal, Q2H, PRN Senokot, 17.2 mg= 2 Tab, Oral, BID Zofran, 4 mg= 2 mL, IV Push, Q4H, PRN Electronically signed by Parveen, [facility] Conversion Photonics Technician Cerner at 12/08/2022 12:26 PM CDT documented in this encounter Plan of Treatment Not on file documented as of this encounter Visit Diagnoses Not on filedocumented in this encounter
--- OUTSIDE RECORDS SUMMARY | 2025-05-09 13:09 | XMS_ITS | Encounter Summary ---
Author Organization [employer] ([place], [place], [place], [place]) Address [address] [place] [address] Care Team Providers Care Engineering Leader Name Role Phone Unavailable Primary Care Provider Unavailabl e Encounter Details Date Type Department Care Team (Late st Contact Info) Description 11/23/2018 Transcribed Document [facility] [place] Family Medicine [address] [place] [address] ProviderErika MD [address] [place] [address] Social History Tobacco Use [...]
--- OUTSIDE RECORDS SUMMARY | 2025-05-09 13:09 | XMS_ITS | Encounter Summary ---
Author Organization [employer] ([place], [place], [place], [place]) Address [address] [place] [address] Care Team Providers Care Systems Architecture Analyst Name Role Phone Unavailable Primary Care Provider Unavailabl e Encounter Details Date Type Department Care Team (Late st Contact Info) Description 12/01/2018 Transcribed Document [facility] [place] Family Medicine [address] [place] [address] ProviderErika MD [address] [place] [address] Social History Tobacco Use Types [...] KISHA BROWER, PT - 12/01/2018 18:30 EDT Retirement Goals Mobility/Bed Mobility LTG PT Grid Goal [...]
--- OUTSIDE RECORDS SUMMARY | 2025-05-09 13:09 | XMS_ITS | Encounter Summary ---
Author Organization [employer] ([place], [place], [place], [place]) Address [address] [place] [address] Care Team Providers Care Motion Graphics Designer Name Role Phone Unavailable Primary Care Provider Unavailabl e Encounter Details Date Type Department Care Team (Late st Contact Info) Description 11/30/2018 Transcribed Document [facility] [place] [address] [place] [address] ProviderErika MD [address] [place] [address] Social History Tobacco Use Types [...] Bed scale Routine Weight Entry Format : [place] Routine Weight, Pounds : 164 lb Routine Weight, Ounces : 1 oz Routine Weight Calculation : 74.57 kg Height Source : Measured Height Entry Format : [place] Height, Feet : 6 ft Height, Inches [...]
--- OUTSIDE RECORDS SUMMARY | 2025-05-09 13:09 | XMS_ITS | Encounter Summary ---
Author Organization [employer] ([place], [place], [place], [place]) Address [address] [place] [address] Care Team Providers Care Mechanic/Welder Name Role Phone Unavailable Primary Care Provider Unavailabl e Encounter Details Date Type Department Care Team (Late st Contact Info) Description 12/01/2018 Transcribed Document [facility] [place] [address] [place] [address] ProviderErika MD [address] [place] [address] Social History Tobacco Use [...]
--- OUTSIDE RECORDS SUMMARY | 2025-05-09 13:09 | XMS_ITS | Encounter Summary ---
Author Organization [employer] ([place], [place], [place], [place]) Address [address] [place] [address] Care Team Providers Care Mission Planner Name Role Phone Unavailable Primary Care Provider Unavailabl e Encounter Details Date Type Department Care Team (Late st Contact Info) Description 11/18/2018 Transcribed Document [facility] [place] [address] [place] [address] ProviderErika MD [address] [place] [address] Social History Tobacco Use Types [...] on Osmolite 1.5 @ 50m/hr + 1 [id number] daily advancing toward goal of 60ml/hr + 1 Rjkugcaut52 daily. No CHARGE AUDITOR consult noted, discussed if any concern for [...] midline incision; chest tube 370ml GI: LBM PONY EDGER (admit 11/16), hypoactive BS, +NGT Nutrition Support: Osmolite 1.5 @ 60ml/hr + 1 Jyffxhomf25 daily, water flush 10ml q1hr HT: 185cm (6'1) ADMIT WT: 79kg/174# Current Wt: 81.6kg (11/17), 82.4kg (11/18) BMI: 23 IBW: 79kg/100% EST NEEDS: 1748-5335 kcal (25-30kcal/kg), 95g pro (1.2g/kg) Bev Olvera [...] TF: Osmolite 1.5 @ 60ml/hr + 1 yvdjfetgf58 daily (provides 2040 kcal, 98g pro). FW per MD. goal: provide nutrition, meet est needs 2. As medically able, recommend swallow eval if appropriate; rec (cardiac) w/consistencies per CHARGE AUDITOR. RD will monitor need for supplement. goal: [...]
--- OUTSIDE RECORDS SUMMARY | 2025-05-09 13:09 | XMS_ITS | Clinical Summary ---
Author Organization [facility] Address [address] [place] [phone] Phone Care Team Providers Care Rv Repair Technician Name Role Phone Svitlana Manley MD Primary [...] [place] PART A [place] B Care Teams Rv Repair Technician Relationship Specialty Start Date End Date Svitlana Manley MD [address] [place] [phone] PCP - General Family Medicine 04/10/16
--- OUTSIDE RECORDS SUMMARY | 2025-05-09 13:09 | XMS_ITS | Encounter Summary ---
Author Organization [employer] ([place], [place], [place], [place]) Address [address] [place] [address] Care Team Providers Care Customer Success Manager Name Role Phone Unavailable Primary Care Provider Unavailabl e Encounter Details Date Type Department Care Team (Late st Contact Info) Description 11/24/2018 Transcribed Document [facility] [place] [address] [place] [address] ProviderErika MD [address] [place] [address] Social History Tobacco Use Types [...] EDT Electronically signed by Christina Saini Conversion Respiratory Medicine Physician Felipe at 12/08/2022 12:12 PM CDT documented in this encounter Plan of Treatment Not on file documented as of this encounter Visit Diagnoses Not on filedocumented in this encounter
--- OUTSIDE RECORDS SUMMARY | 2025-05-09 13:09 | XMS_ITS | Encounter Summary ---
Author Organization [employer] ([place], [place], [place], [place]) Address [address] [place] [address] Care Team Providers Care Pulling Unit Operator Name Role Phone Unavailable Primary Care Provider Unavailabl e Encounter Details Date Type Department Care Team (Late st Contact Info) Description 11/23/2018 Transcribed Document [facility] [place] [address] [place] [address] ProviderErika MD [address] [place] [address] Social History Tobacco Use Types [...]
--- OUTSIDE RECORDS SUMMARY | 2025-05-09 13:09 | XMS_ITS | Encounter Summary ---
Author Organization [employer] ([place], [place], [place], [place]) Address [address] [place] [address] Care Team Providers Care Strawhat Blocking Operator Name Role Phone Unavailable Primary Care Provider Unavailabl e Encounter Details Date Type Department Care Team (Late st Contact Info) Description 11/23/2018 Transcribed Document [facility] [place] [address] [place] [address] ProviderErika MD [address] [place], [place] [id number] Social History Tobacco Use Types Packs/Day Years [...] 1940 Associated Diagnoses: CAD (coronary artery disease), [place] coronary artery; Thrombocytopenia; Coronary artery disease; HTN (hypertension); Hypothyroidism; Aortic insufficiency; RLS (restless legs syndrome); Thoracic ascending aortic aneurysm; Right MCA CVA (cerebral vascular accident) Author: MARIEL RBOLES [place] Basic Information POD#6 S/P Resection and [...] S1, S2, No edema. Integumentary: Warm, Dry, [place], incision is C/D/I. Neurologic: Alert, left sided [...] of discharge- MELLISSA has sent information to [facility] -Transfer to 3 east EF 55-60% per echo 11/16/18 DVT Prophylaxis: SCDs Diagnosis CAD (coronary artery disease), [place] coronary artery - Admitting, Medical. Thrombocytopenia - [...]
--- OUTSIDE RECORDS SUMMARY | 2025-05-09 13:09 | XMS_ITS | Encounter Summary ---
Author Organization [employer] ([place], [place], [place], [place]) Address [address] [place] [address] Care Team Providers Care Hair Salon Manager Name Role Phone Unavailable Primary Care Provider Unavailabl e Encounter Details Date Type Department Care Team (Late st Contact Info) Description 11/23/[address] [facility] [place] Family Medicine [address] [place] [address] ProviderErika MD [address] [place] [address] Social History Tobacco Use Types [...] EDT Electronically signed by Christina Saini Conversion Tunnel Elastic Operator Zigzag Cerner at 12/08/2022 12:29 PM CDT documented in this encounter Plan of Treatment Not on file documented as of this encounter Visit Diagnoses Not on filedocumented in this encounter
--- OUTSIDE RECORDS SUMMARY | 2025-05-09 13:09 | XMS_ITS | Encounter Summary ---
Author Organization [employer] ([place], [place], [place], [place]) Address [address] [place] [address] Care Team Providers Care Cement Rubber Name Role Phone Unavailable Primary Care Provider Unavailabl e Encounter Details Date Type Department Care Team (Late st Contact Info) Description 12/01/2018 Transcribed Document [facility] [place] [address] [place] [address] ProviderErika MD [address] [place] [address] Social History Tobacco Use Types [...] Jose MD - 12/01/2018 1:54 PM CDT [facility] [place] [address] DOTTIE VILLASENOR :1940 Visit Time:11/16/2018 Your Visit Summary Your Care Team Admitting Physician - JULIO CESAR CARVALHO MD-CAT Attending Physician - JULIO CESAR CARVALHO MD-YADIRA Primary Care Physician - DEMETRICE ARMIJO NP-FAM Referring Physician - DEMETRICE ARMIJO NP-FAM Your Diagnosis Acute blood loss anemia Aortic insufficiency, Aortic insufficiency CAD (coronary artery disease), [place] coronary artery, Coronary artery disease GI bleed [...] Your Care Team [facility]-Stroke Unit RN report #[id number] DC Summary #[phone] You may shower. Make sure your back [...] IF you have a fever greater than [address], call the surgeon. DO NOT drive for [...] Where: [address] [place] [place] [address]- Business (1) Follow Up with JULIO CESAR CARVALHO When 12/15/2018 12:15 PM EDT Where: [address] [place] [address] Business (1) Follow Up with DEMETRICE ARMIJO When Within 1 week Comments When you are discharged from [facility] please call to make a 1 week hospital follow-up appointment. Where: [address] [place] [address]- Follow Up with JOHN BOWEN When Within 6 weeks Comments Patient should call for a follow up appointment with [facility]. Where: [address] [place] [address]- Business (1) Medications What How [...] contain harmful chemicals. FOR MORE INFORMATION ??? [place] [employer]: www.lung.org ??? [place] [employer]: www.cancer.org This information is not intended to replace advice given to you by your health care provider. Make sure you discuss any questions you have with your health care provider. Document Released: 09/17/2005 Document Revised: 12/01/2016 Document Reviewed: 01/30/2014 [employer] Interactive Patient Education ?? 2017 [employer] How to Take Your Blood Pressure [...] 07/23/2009 Document Revised: 08/31/2015 Document Reviewed: 10/05/2014 [employer] Interactive Patient Education ?? 2017 [employer] How to Take a Pulse Your [...] 02/14/2004 Document Revised: 02/27/2017 Document Reviewed: 01/13/2017 [employer] Interactive Patient Education ?? 2017 [employer] Coronary Artery Bypass Grafting, Care After [...] 02/27/2006 Document Revised: 08/31/2015 Document Reviewed: 01/17/2014 [employer] Interactive Patient Education ?? 2017 [employer] Bleeding Precautions When on Anticoagulant Therapy [...] can be dangerous for you. ??? Many jukg-tuq-shpnamf medicines for pain, colds, or stomach problems [...] provider. Document Released: 07/21/2016 Document Reviewed: 07/21/2016 [employer] Interactive Patient Education ?? 2017 [employer]. Atrial Fibrillation Introduction Atrial fibrillation is a [...] Follow these instructions at home: ??? Take jdzn-gwf-lrortqv and prescription medicines only as told by [...] 09/17/2005 Document Revised: 01/15/2017 Document Reviewed: 02/10/2014 [employer] Interactive Patient Education ?? 2017 [employer]. misoprostol (reji ramos) [facility] What is the most important [...] may report side effects to FDA at 3-797-OKP-8266. What other drugs will affect misoprostol? Other drugs may interact with misoprostol, including prescription and rxre-dvx-dotvvkl medicines, vitamins, and herbal products. Tell each [...] to ensure that the information provided by [employer]. ('[employer]') is accurate, up-to-date, and complete, but no guarantee is made to that effect. Drug information contained herein may be time sensitive. [employer] information has been compiled for use by healthcare practitioners and consumers in the [place] and therefore [employer] does not warrant that uses outside of the [place] are appropriate, unless specifically indicated otherwise. [employer]s drug information does not endorse drugs, diagnose patients or recommend therapy. [employer]s drug information is an informational resource designed [...] effective or appropriate for any given patient. [employer] does not assume any responsibility for any aspect of healthcare administered with the aid of information [employer] provides. The information contained herein is not intended to cover all possible uses, directions, precautions, warnings, drug interactions, allergic reactions, or adverse effects. If you have questions about the drugs you are taking, check with your doctor, nurse or pharmacist. Copyright 2703-1434 [employer]. Version: 8.01. Revision Date: 03/02/2014.sucralfate (oral) (angelica [...] may report side effects to FDA at 4-307-OZH-1301. What other drugs will affect sucralfate? Sucralfate can make it harder for your body to absorb other medications you take by mouth. Avoid taking any other medications within 2 hours before or after you take sucralfate. Other drugs may interact with sucralfate, including prescription and ebtf-cnx-cobsjnk medicines, vitamins, and herbal products. Tell each [...] to ensure that the information provided by [employer]. ('[employer]') is accurate, up-to-date, and complete, but no guarantee is made to that effect. Drug information contained herein may be time sensitive. [employer] information has been compiled for use by healthcare practitioners and consumers in the [place] and therefore [employer] does not warrant that uses outside of the [place] are appropriate, unless specifically indicated otherwise. [employer]s drug information does not endorse drugs, diagnose patients or recommend therapy. [employer]s drug information is an informational resource designed [...] effective or appropriate for any given patient. [employer] does not assume any responsibility for any aspect of healthcare administered with the aid of information [employer] provides. The information contained herein is not intended to cover all possible uses, directions, precautions, warnings, drug interactions, allergic reactions, or adverse effects. If you have questions about the drugs you are taking, check with your doctor, nurse or pharmacist. Copyright 7919-5162 [employer]. Version: 8.01. Revision Date: 01/03/2013.sucralfate (oral) (angelica [...] may report side effects to FDA at 0-437-VCC-8249. What other drugs will affect sucralfate? Sucralfate can make it harder for your body to absorb other medications you take by mouth. Avoid taking any other medications within 2 hours before or after you take sucralfate. Other drugs may interact with sucralfate, including prescription and diue-cjz-qsefgxm medicines, vitamins, and herbal products. Tell each [...] to ensure that the information provided by [employer]. ('[employer]') is accurate, up-to-date, and complete, but no guarantee is made to that effect. Drug information contained herein may be time sensitive. [employer] information has been compiled for use by healthcare practitioners and consumers in the [place] and therefore [employer] does not warrant that uses outside of the [place] are appropriate, unless specifically indicated otherwise. [employer]s drug information does not endorse drugs, diagnose patients or recommend therapy. [employer]s drug information is an informational resource designed [...] effective or appropriate for any given patient. [employer] does not assume any responsibility for any aspect of healthcare administered with the aid of information [facility] provides. The information contained herein is not intended to cover all possible uses, directions, precautions, warnings, drug interactions, allergic reactions, or adverse effects. If you have questions about the drugs you are taking, check with your doctor, nurse or pharmacist. Copyright 5735-6227 [employer]. Version: 8.01. Revision Date: 01/03/2013. Emergency Awareness [...] Assistance with quitting is available by contacting 2-556-OWUMBirdbackNOW. This is a free resource providing counseling, [...]
--- OUTSIDE RECORDS SUMMARY | 2025-05-09 13:09 | XMS_ITS | Clinical Summary ---
Author Organization [employer] ([place], [place], [place], [place]) Address [address] [place] [address] Care Team Providers Care Judge Name Role Phone Unavailable Primary Care Provider [...]
--- OUTSIDE RECORDS SUMMARY | 2025-05-09 13:09 | XMS_ITS | Encounter Summary ---
Author Organization [employer] ([place], [place], [place], [place]) Address [address] [place] [address] Care Team Providers Care Plater Production Name Role Phone Unavailable Primary Care Provider Unavailabl e Encounter Details Date Type Department Care Team (Late st Contact Info) Description 11/24/2018 Transcribed Document [facility] [place] Family Medicine [address] [place] [address] ProviderErika MD [address] [place] [address] Social History Tobacco Use Types [...] On: 11/24/2018 13:21 EDT by ODALYS FAULKNER Rn-All Source Intelligence AnalystStress Analyst Note Care Management Note : 11/24/18 Andra from [facility] called to let me know they started a precert on this pt. CF Care Management Note Report : ODALYS FAULKNER Rn-All Source Intelligence Analyst - 11/22/18 13:56:32 11/22/18 Pt has had a cva. Spoke to his Connie and son Sumeet at the bedside. Pt is lfacid on the left side. Discussed the need for STR and they decided on [facility]. Sent pt info via [employer] to [facility]. CF Documentation Status Complete : Yes ODALYS FAULKNER Rn-All Source Intelligence Analyst - 11/24/2018 13:21 EDT Electronically signed by Parveen [facility] Conversion Nuclear Design Engineer Cerjuju at 12/08/2022 12:31 PM CDT documented in this encounter Plan of Treatment Not on file documented as of this encounter Visit Diagnoses Not on filedocumented in this encounter
--- OUTSIDE RECORDS SUMMARY | 2025-05-09 13:09 | XMS_ITS | Clinical Summary ---
Author Organization [facility] Address [address] [place] [address] Care Team Providers Care Freezing Room Worker Name Role Phone Clifford Horner MD Primary Care Provider [phone] Allergies No known active allergies Medications dutasteride [...] r (1 - 1-dose 75+ series) 2014 [id number] Vaccine (3 - Moderna risk series) 02/11/2021 [...] complete this topic Insurance MEDICARE Care Teams Freezing Room Worker Relationship Specialty Start Date End Date Clifford Horner MD [address] [facility] [address] [place] [address] PCP - General 07/14/24
--- OUTSIDE RECORDS SUMMARY | 2025-05-09 13:09 | XMS_ITS | Encounter Summary ---
Author Organization [employer] ([place], [place], [place], [place]) Address [address] [place] [address] Care Team Providers Care Creative Arts Music Therapist Name Role Phone Unavailable Primary Care Provider Unavailabl e Encounter Details Date Type Department Care Team (Late st Contact Info) Description 12/01/2018 Transcribed Document [facility] [place] [address] [place] [address] ProviderErika MD [address] [place] [address] Social History Tobacco Use Types [...] Jose MD - 12/01/2018 1:32 PM CDT [address] [address] Patient Copy Patient Information: Name: DOTTIE VILLASENOR Current Date: 12/01/2018 13:32:25 : 1940 Patient Address: [address] [place] [id number] Patient Attending Physician: JULIO CESAR CARVALHO MD-CAT Primary Care Provider: DEMETRICE ARMIJO NP-[facility] Primary Care Provider Discharge Diagnosis: Acute blood loss anemia; Aortic insufficiency; Coronary artery disease; GI bleed; LUE DVT (deep venous thrombosis); Right MCA CVA (cerebral vascular accident); Thoracic ascending aortic aneurysm Weight on Admission: 174 lb, 5 oz Weight at Discharge: 159 lb Comment: Follow-up Instructions: With: Address: When: DEMETRICE ARMIJO [address] [place], [place] [id number] Within 1 week Comments: When you are discharged from [facility] please call to make a 1 week hospital follow-up appointment. With: Address: When: JULIO CESAR DEY [address] [place] [address] Business (1) 1:15 PM With: Address: When: JULIO CESAR CARVALHO [address] [place] [address] Business (1) Within 2 weeks With: Address: When: JOHN BOWEN [address], [address] [place] [address] Business (1) Within 6 weeks Comments: Patient should call for a follow up appointment with [facility] Neurology. Discharge Instructions: Driving after Discharge: Do not drive, Other: No driving or operating heavy machinery until released by a physician. Community Services: Outpt Cardiac Rehab [facility] [phone] They will call pt w/ appt time. [...] 09/17/2005 Document Revised: 01/15/2017 Document Reviewed: 02/10/2014 [employer] Patient Education ? 2017 [employer] CIGARETTE SMOKING: The facts are clear, cigarette smoking will shorten your life. Smoking can cause many illnesses along the way. As a healthcare provider, we recommend that you stop smoking. Assistance with quitting is available by contacting 8-232-MLTG-NOW. This is a free resource providing counseling, [...] Be sure to sign up for the [facility] patient portal, which gives you 16/03 access to your medical information ??? including these discharge instructions ??? using your computer, smartphone, or tablet. Just go to [employer] to get started. Questions? Call . [facility] would like to thank you for allowing us to assist you with your healthcare needs. HAMILTON Jarvis ROBERT H, (or self pay representative) have received the above patient education materials/instructions and have verbalized understanding: Patient Signature _ Date/Time Patient Journeyman Pipefitter Signature (if needed) Date/Time Clinician/Hospital Journeyman Pipefitter Signature (if needed) Date/Time documented in this encounter Plan of Treatment Not on file documented as of this encounter Visit Diagnoses Not on filedocumented in this encounter
--- OUTSIDE RECORDS SUMMARY | 2025-05-09 13:09 | XMS_ITS | Encounter Summary ---
Author Organization [employer] ([place], [place], [place], [place]) Address [address] [place] [address] Care Team Providers Care Carrot Grader Inspector Name Role Phone Unavailable Primary Care Provider Unavailabl e Encounter Details Date Type Department Care Team (Late st Contact Info) Description 11/25/2018 Transcribed Document [facility] [place] [address] [place] [address] ProviderErika MD [address] [place] [address] Social History Tobacco Use Types [...]
--- OUTSIDE RECORDS SUMMARY | 2025-05-09 13:09 | XMS_ITS | Encounter Summary ---
Author Organization [employer] ([place], [place], [place], [place]) Address [address] [place] [address] Care Team Providers Care Bulk Driver Name Role Phone Unavailable Primary Care Provider Unavailabl e Encounter Details Date Type Department Care Team (Late st Contact Info) Description 11/25/2018 Transcribed Document [facility] [place] [address] [place] [address] ProviderErika MD [address] [place] [address] Social History Tobacco Use Types [...]
--- OUTSIDE RECORDS SUMMARY | 2025-05-09 13:09 | XMS_ITS | Encounter Summary ---
Author Organization [employer] ([place], [place], [place], [place]) Address [address] [place] [address] Care Team Providers Care Vision Impaired Teacher Name Role Phone Unavailable Primary Care Provider Unavailabl e Encounter Details Date Type Department Care Team (Late st Contact Info) Description 11/18/2018 Transcribed Document [facility] [place] [address] [place] [address] ProviderErika MD [address] [place], [place] [id number] Social History Tobacco Use Types Packs/Day Years [...] 1940 Associated Diagnoses: CAD (coronary artery disease), [place] coronary artery; Thrombocytopenia; Coronary artery disease; HTN [...] S1, S2, No edema. Integumentary: Warm, Dry, [place], incision is C/D/I. Neurologic: Alert, he did [...] Prophylaxis: SCDs Diagnosis CAD (coronary artery disease), [place] coronary artery - Admitting, Medical. Thrombocytopenia - [...]
--- OUTSIDE RECORDS SUMMARY | 2025-05-09 13:09 | XMS_ITS | Encounter Summary ---
Author Organization Healthcare Address [address] [place] [address] Care Team Providers Care Key Filer Name Role Phone Sanjuana Valdez APRN Primary Care Provider [phone] Clifford Horner MD Primary Care Provider [phone] Encounter Details Date Type Department Care Team (Late st Contact Info) Description 06/02/2022 [facility] [address] [place] [address] Joanna Zamora, DPM [address] [place], [place] [id number] Contracture of left ankle (Primary Dx); Contracture [...] foot documented in this encounter Care Teams Key Filer Relationship Specialty Start Date End Date Sanjuana Valdez APRN [address] [place] [address] PCP - General 01/04/21 07/13/24 Clifford Horner MD [address] [place] [address] PCP - General 07/14/24 documented as of this encounter
--- OUTSIDE RECORDS SUMMARY | 2025-05-09 13:09 | XMS_ITS | Encounter Summary ---
Author Organization [employer] ([place], [place], [place], [place]) Address [address] [place] [address] Care Team Providers Care Plant Care Worker Name Role Phone Unavailable Primary Care Provider Unavailabl e Encounter Details Date Type Department Care Team (Late st Contact Info) Description 11/25/2018 Transcribed Document [facility] [place] [address] [place] [address] ProviderErika MD [address] [place] [address] Social History Tobacco Use Types [...] at goal rate. Did have BM yesterday. JEWELRY MANAGER okayed pt for po diet this am- [...] (11/24) BMI: 23 IBW: 79kg/100% EST NEEDS: 3670-0049 kcal (25-30kcal/kg), 95g pro (1.2g/kg) DAVION GREEN [...]
--- OUTSIDE RECORDS SUMMARY | 2025-05-09 13:09 | XMS_ITS | Encounter Summary ---
Author Organization [employer] ([place], [place], [place], [place]) Address [address] [place] [address] Care Team Providers Care Section Gang Worker Name Role Phone Unavailable Primary Care Provider Unavailabl e Encounter Details Date Type Department Care Team (Late st Contact Info) Description 12/01/2018 Transcribed Document [facility] [place] [address] [place] [address] ProviderErika MD [address] [place] [address] Social History Tobacco Use Types [...] On: 12/01/2018 13:36 EDT by NAIN JARRETT undercollar baster Documentation Discharge Date/Time : 12/01/2018 15:13 EDT NAIN JARRETT RN - 12/01/2018 16:34 EDT Patient Disposition, General : Discharge Discharge To : Rehabilitation unit/facility Name of Receiving Facility/Provider : [facility] Mode Of Departure, General Discharge : Ambulance/BLS [...] information provided to patient and discussed at [place]. Verbalized understanding. Worker's Compensation Paperwork Completed : NAIN Gomez RN - 12/01/2018 13:36 EDT documented in this encounter Plan of Treatment Not on file documented as of this encounter Visit Diagnoses Not on filedocumented in this encounter
--- OUTSIDE RECORDS SUMMARY | 2025-05-09 13:09 | XMS_ITS | Encounter Summary ---
Author Organization [employer] ([place], [place], [place], [place]) Address [address] [place] [address] Care Team Providers Care Turbine Measurements Engineer Name Role Phone Unavailable Primary Care Provider Unavailabl e Encounter Details Date Type Department Care Team (Late st Contact Info) Description 11/18/2018 Transcribed Document [facility] [place] [address] [place] [address] ProviderErika MD [address] [place] [address] Social History Tobacco Use Types [...] Source : Measured Height Entry Format : [place] Height, Feet : 6 ft Height, Inches [...]
--- OUTSIDE RECORDS SUMMARY | 2025-05-09 13:10 | XMS_ITS | Encounter Summary ---
Author Organization [employer] ([place], [place], [place], [place]) Address [address] [place] [address] Care Team Providers Care Room Designer Name Role Phone Unavailable Primary Care Provider Unavailabl e Encounter Details Date Type Department Care Team (Late st Contact Info) Description 11/26/2018 Transcribed Document [facility] [place] [address] [place] [address] ProviderErika MD [address] [place] [address] Social History Tobacco Use [...] On: 11/26/2018 9:15 EDT by JOSSUE RODRÍGUEZ SUPPLY CHAIN PROJECT MANAGER General Information Visit Type, SUPPLY CHAIN PROJECT MANAGER : Re-Evaluation Patient Orders : SUPPLY CHAIN PROJECT MANAGER Fxoliver Limitation Documentation x 1 -111 Start: 11/25/18 10:29:25 EDT - SYSTEM, SYSTEM Speech Language Pathology Modified Barium Swallow Study - Start: 11/26/18 7:00:00 EDT, Routine, For Other (see special instructions), Dysphagia -111 GISSEL ZHANG PA SUPPLY CHAIN PROJECT MANAGER Fxnl Limitation Documentation - Start: 11/20/18 9:37:47 EDT, Continuous Order -111 SYSTEM, SYSTEM Speech Language Pathology Additional Tx - Start: 11/20/18 9:36:00 EDT, For Dysphagia, Continuous Order -111 Admission Date : Admission Date/Time: 11/16/18 06:45:00 Medical Chart Reviewed, SUPPLY CHAIN PROJECT MANAGER : Yes Personal Devices : Personal Devices No Devices Recorded Assistive Devices : Assistive Devices No Devices Recorded Active Diagnoses : 11/23/2018 00:00 Cerebral infarction, unspecified 11/17/2018 00:00 Atherosclerotic heart disease of [place] coronary artery without angina pectoris 11/17/2018 00:00 Essential (primary) hypertension 11/17/2018 00:00 Hypothyroidism, unspecified 11/17/2018 00:00 Nonrheumatic aortic (valve) insufficiency 11/17/2018 00:00 Restless legs syndrome 11/17/2018 00:00 Thoracic aortic aneurysm, without rupture 11/17/2018 00:00 Thrombocytopenia, unspecified 11/16/2018 00:00 Atherosclerotic heart disease of [place] coronary artery without angina pectoris 11/16/2018 00:00 Nonrheumatic aortic (valve) insufficiency 11/16/2018 00:00 Thoracic aortic aneurysm, without rupture Therapy Diagnosis, SUPPLY CHAIN PROJECT MANAGER : functional oropharyngeal skills Previous Speech/Language Evaluations : N/A Previous Swallow Precautions : Bedside 11/20 recommended instrumental prior to initiating PO diet, FEES recommended reg/nectar. Pt has participated in tx and is ready for a repeat study Previous Cognitive Evaluations : this admit Diet/Intake Prior to Current Admission : Regular/thin Diet/Intake During Current Admission : reg/thin following MBS Intubation Comment, SUPPLY CHAIN PROJECT MANAGER : 11/16-11/17 Vital Signs RTF : [...] 9:15 EDT General Status Patient Received Status, SUPPLY CHAIN PROJECT MANAGER : Up in chair Patient Left Status, SUPPLY CHAIN PROJECT MANAGER : Up in chair JOSSUE RODRÍGUEZ SLP [...] Trialed MB/VFSS : Thin by straw, [place] by straw, Pudding JOSSUE RODRÍGEUZ, ERIC - 11/26/2018 9:15 EDT Swallow Impressions Impressions, MBSS/VFSS : Functional swallow for oral intake JOSSUE RODRÍGUEZ SLP - 11/26/2018 9:15 EDT 8 Point Penetration/Aspiration Grid Thin by Straw : 1 [place] by Straw : 1 Pudding : 1 [...] Discussed briefly with CTS PA. JOSSUE RODRÍGUEZ, SUPPLY CHAIN PROJECT MANAGER - 11/26/2018 9:15 EDT Swallow Recommendations Recommended Diet Type, SwRec : Regular Recommended Liquid Diet, SwRec : Thin Swallow Position, SwRec : Upright 90 degrees Supervision Level w/Meals, SwRec : Independent, modified Recommended Med Present, SwRec : As per nursing JOSSUE RODRÍGUEZ SLP - 11/26/2018 9:15 EDT Therapy Indication Assessment SUPPLY CHAIN PROJECT MANAGER Indicated : No SUPPLY CHAIN PROJECT MANAGER Not Indicated : At prior level of function JOSSUE RODRÍGUEZ SLP - 11/26/2018 9:15 EDT Swallow Plan/Goals Swallow LTG Grid SUPPLY CHAIN PROJECT MANAGER Jail Goal #1 SUPPLY CHAIN PROJECT MANAGER Record Producer Goal #2 Swallow LTG : Establish safe [...] JOSSUE RODRÍGUEZ SLP - 11/26/2018 9:15 EDT SUPPLY CHAIN PROJECT MANAGER Education Assessment Grid 1 Aspiration : Needs further teaching Diet Recommendation : Needs further teaching JOSSUE RODRÍGUEZ SLP - 11/26/2018 9:[address] [place] SUPPLY CHAIN PROJECT MANAGER Charges Modified Barium Swallow : 1 JOSSUE RODRÍGUEZ SLP - 11/26/2018 9:15 EDT documented in this encounter Plan of Treatment Not on file documented as of this encounter Visit Diagnoses Not on filedocumented in this encounter
--- OUTSIDE RECORDS SUMMARY | 2025-05-09 13:10 | XMS_ITS | Encounter Summary ---
Author Organization [employer] ([place], [place], [place], [place]) Address [address] [place] [address] Care Team Providers Care Continuous Improvement Director Name Role Phone Unavailable Primary Care Provider Unavailabl e Encounter Details Date Type Department Care Team (Late st Contact Info) Description 11/28/2018 Transcribed Document [facility] [facility] [place] [address] [place] [address] ProviderErika MD [address] [place] [address] Social History Tobacco Use Types [...] Jacob Coy MD Electronically signed by Parveen [facility] Conversion Brush Hand Cerner at 12/08/2022 12:31 PM CDT documented in this encounter Plan of Treatment Not on file documented as of this encounter Visit Diagnoses Not on filedocumented in this encounter
--- OUTSIDE RECORDS SUMMARY | 2025-05-09 13:10 | XMS_ITS | Encounter Summary ---
Author Organization [employer] ([place], [place], [place], [place]) Address [address] [place] [address] Care Team Providers Care Furniture Technician Name Role Phone Unavailable Primary Care Provider Unavailabl e Encounter Details Date Type Department Care Team (Late st Contact Info) Description 11/26/2018 Transcribed Document [facility] [place] [address] [place] [address] ProviderErika MD [address] [place], [place] [phone] Social History Tobacco Use Types Packs/Day Years [...] 1940 Associated Diagnoses: CAD (coronary artery disease), [place] coronary artery; Thrombocytopenia; Coronary artery disease; HTN [...] swelling - improved today. Integumentary: Warm, Dry, [place], incision is C/D/I. Neurologic: Alert, left sided [...] to [facility] -Transfer to [facility] 11/24/18 -POD#8 -Awaiting transfer to [facility] -Awaiting response from [facility] 11/25/18 -left upper extremity venous doppler - doppler this am positive for LUE DVT - will start coumadin and heparin bridge -awaiting [facility] 11/26/18 -Heparin drip and coumadin for LUE DVT Left arm swelling improved today INR 1.1 today, INR goal 2-3 Possibly transfer to [facility] this weekend EF 55-60% per echo 11/16/18 DVT Prophylaxis: SCDs Diagnosis CAD (coronary artery disease), [place] coronary artery - Admitting, Medical. Thrombocytopenia - [...]
--- OUTSIDE RECORDS SUMMARY | 2025-05-09 13:10 | XMS_ITS | Encounter Summary ---
Author Organization [employer] ([place], [place], [place], [place]) Address [address] [place] [address] Care Team Providers Care Aoc Airspace Control Officer Name Role Phone Unavailable Primary Care Provider Unavailabl e Encounter Details Date Type Department Care Team (Late st Contact Info) Description 12/01/2018 Transcribed Document [facility] [place] [address] [place] [address] ProviderErika MD [address] [place], [place] [phone] Social History Tobacco Use Types Packs/Day Years [...] complaints. 11/30/18: No complaints, transferred back to [facility] yesterday 12/01/18: Up to chair today, hopefully to [facility] today Review of Systems Constitutional: Weakness. [...] Musculoskeletal: left arm swelling. Integumentary: Warm, Dry, [place], incision is C/D/I. Neurologic: Alert, left sided [...] (Current Encounter/Past 24 Hours) PT 14.6 Second(s) [place] 12/01/2018 06:53 INR 1.4 [place] 12/01/2018 06:53 . Impression and Plan Plan: [...] time of discharge- has sent information to [facility] -Transfer to [facility] 11/24/18 -POD#8 -Awaiting transfer to [facility] -Awaiting response from [facility] 11/25/18 -POD#9 -left upper extremity venous doppler - doppler this am positive for LUE DVT - will start coumadin and heparin bridge -awaiting [facility] 11/26/18 -POD#10 -Heparin drip and coumadin for LUE DVT -Left arm swelling improved today -INR 1.1 today, INR goal 2-3 -Possibly transfer to [facility] this weekend 11/27/18: -POD#11 -Left arm swelling continues to improve -Continues on Coumadin and heparin bridge -INR: 1.4 (1.1 yesterday) goal: 2 to 3 -[facility] soon,? Tomorrow 11/28/18: -POD#12 -BP in 70s-80s this AM -He had a dark black stool and has had a couple of fluid boluses -Heparin was D/C'd and his INR is 2.0 this AM (on coumadin 5mg qd) -Hct is down to 23.6 -GI med has been consulted and he is to undergo EGD -Also some blood has been set up. -Transferred to [facility] 11/29/18: -POD#13 -Upper endoscopy showed duodenal [...] D/C due to GI bleed. -Transfer to [facility] 11/30/18 POD # 14 EGD yesterday - duodenal ulceration with clot, no active bleeding and no intervention performed INR trending down, off coumadin and heparin Speech signed off yesterday - speech and cognition back to baseline Watch INR and [facility] upon discharge 12/01/18 POD # 15 Bed available at [facility] today\.brTH stable, INR 1.4 EF 55-60% [...] - Discharge, Medical. Electronically signed by Parveen [facility] Conversion Senior Sourcing Manager Cerner at 12/08/2022 12:20 PM CDT documented in this encounter Plan of Treatment Not on file documented as of this encounter Visit Diagnoses Not on filedocumented in this encounter
--- OUTSIDE RECORDS SUMMARY | 2025-05-09 13:10 | XMS_ITS | Encounter Summary ---
Author Organization [employer] ([place], [place], [place], [place]) Address [address] [place] [address] Care Team Providers Care Metal Drawer Name Role Phone Unavailable Primary Care Provider Unavailabl e Encounter Details Date Type Department Care Team (Late st Contact Info) Description 11/28/2018 Transcribed Document [facility] [place] [address] [place] [address] ProviderErika MD [address] [place] [address] Social History Tobacco Use Types [...] DIA BINGHAM RN - 11/28/2018 11:41 EDT Electronically signed by Christina Saini Conversion Portable Grinding Machine Operator Cerner at 12/08/2022 12:39 PM CDT documented in this encounter Plan of Treatment Not on file documented as of this encounter Visit Diagnoses Not on filedocumented in this encounter
--- OUTSIDE RECORDS SUMMARY | 2025-05-09 13:10 | XMS_ITS | Encounter Summary ---
Author Organization [employer] ([place], [place], [place], [place]) Address [address] [place] [address] Care Team Providers Care Color Technician Name Role Phone Unavailable Primary Care Provider Unavailabl e Encounter Details Date Type Department Care Team (Late st Contact Info) Description 11/28/2018 Transcribed Document [facility] [place] [address] [place] [address] ProviderErika MD [address] [place] [address] Social History Tobacco Use [...] : Transfer to critical care Rapid Response Color Technician #1 : MICHAEL WALLER RN Rapid Response Color Technician #2 : DIA BINGHAM RN Rapid Response Color Technician #3 : SRINIVAS LEAL RN [place], [place]ER[place], [...] Team Initiation Reason Details : 3E 333. MANUAL LATHE OPERATOR notified of pt with decrease in BP despite treatment. MD notified. Bolus given and pt labwork obtained. Rapid Response Admission Diagnosis : Atherosclerotic heart disease of [place] coronary artery without angina pectoris Atherosclerotic heart disease of [place] coronary artery without angina pectoris Cerebral infarction, [...] - 11/28/2018 8:36 EDT Electronically signed by [facility] Conversion Facility Maintenance Worker Cerner at 12/08/2022 12:11 PM CDT documented in this encounter Plan of Treatment Not on file documented as of this encounter Visit Diagnoses Not on filedocumented in this encounter
--- OUTSIDE RECORDS SUMMARY | 2025-05-09 13:10 | XMS_ITS | Encounter Summary ---
Author Organization [employer] ([place], [place], [place], [place]) Address [address] [place] [address] Care Team Providers Care Auth Specialist Name Role Phone Unavailable Primary Care Provider Unavailabl e Encounter Details Date Type Department Care Team (Late st Contact Info) Description 11/16/2018 Transcribed Document [facility] [place] [address] [place] [address] ProviderErika MD [address] [place], [place] [id number] Social History Tobacco Use Types Packs/Day Years [...] All Problems Prostate stricture / SNOMED CT 77004761 / Confirmed Restless legs syndrome / SNOMED CT 29027810 / Confirmed Nocturia / SNOMED CT 178501912 / Confirmed Cancer of skin of face / SNOMED CT 7176753491 / Confirmed Frequent urination / SNOMED CT 150371276 / Confirmed Hypothyroidism / SNOMED CT 34087207 / Confirmed HTN - Hypertension / SNOMED CT 7624397262 / Confirmed Disorder of prostate ( enlarged) / SNOMED CT 83318236 / Confirmed CAD (coronary artery disease) / SNOMED CT 50188750 / Confirmed At risk for sleep apnea / IMO 74858338 / Confirmed Arthritis / SNOMED CT 7771135 / Confirmed Aortic valve insufficiency / SNOMED CT 237305089 / Confirmed Aneurysm, thoracic aortic / SNOMED CT 5277508165 / Confirmed, Active Problems (13) Aneurysm, thoracic aortic Aortic valve insufficiency Arthritis At risk for sleep apnea CAD (coronary artery disease) Cancer of skin of face Disorder of prostate ( enlarged) Frequent urination HTN - Hypertension Hypothyroidism Nocturia Prostate stricture Restless legs syndrome Histories Past Medical History: Active HTN - Hypertension (0588266738) Hypothyroidism (18796755) Family History: Entire family history is negative. [...] EDT Height Source Measured Height Entry Format [place] Height/Length, HUNG[place]IAN (ft) 6 ft Height/Length HUNGARIAN 1 Inch CLINICALHEIGHT 185.42 cm [place] Body Weight 79 kg Weight Source Standing scale Weight Entry Format [place] Weight [place] lb 174 lb Weight Ghanaian oz 5 oz CLINICALWEIGHT 79.23 kg Body [...] of motion, Normal strength. Integumentary: Warm, Dry, [place]. Neurologic: Alert, Oriented. Psychiatric: Cooperative, Appropriate mood [...] % 32.4 % Lymph # 2.32 x10(3)/uL Grand % 9.5 % HI Grand # 0.68 K/uL Eos % 1.1 % [...] Color Yellow Urine Appearance Clear Urine Specific [place] 1.016 Urine pH Dipstick 6.5 Urine Leukocyte [...]
--- OUTSIDE RECORDS SUMMARY | 2025-05-09 13:10 | XMS_ITS | Encounter Summary ---
Author Organization [employer] ([place], [place], [place]) Address [address] [place] [address] Care Team Providers Care Biomedical Engineering Professor Name Role Phone Unavailable Primary Care Provider Unavailabl e Encounter Details Date Type Department Care Team (Late st Contact Info) Description 11/15/2018 Transcribed Document [facility] [place] [address] [place] [address] ProviderErika MD [address] [place] [address] Social History Tobacco Use Types [...] Source : Measured Height Entry Format : [place] Height, Feet : 6 ft(Converted to: 183 cm, 72 Inch) Height, Inches : 1 Inch(Converted to: 0 ft 1 Inch, 2.54 cm) Clinical Height : 185.42 cm Weight Source : Standing scale Weight Entry Format : [place] Clinical Dosing Weight : 79.23 kg Weight, Pounds : 174 lb Weight, Ounces : 5 oz Body Surface Area (BSA) : 2.03 m2 Body Mass Index : 23 kg/m2 [place] [employer] Body Weight : 79 kg ANGELA KEY [...] No. (Last Updated: 04/16/2017 10:11:06 EDT by ARDIANA YOUNG RN) Substance Abuse: Drug Use Hx: [...] Ambulatory Legal Guardian : Spouse Support Person/Patient Center Mgr : Yes Support Person/Pt Rep Name : Connie- Sumeet - son Support Person/Pt Rep Contact Information : [phone] home [phone] - cell Want Family/Rep/Phys Notified of Admit : No Emergency Contact #1 : Connie Emergency Contact #1 Emergency Contact #1 Relationship : Emergency Contact #2 : Sumeet Emergency Contact #2 Emergency Contact #2 Relationship : son Information Obtained From : Patient, Medical Record Primary Language : Kinyarwanda Preferred Communication Mode : Verbal Communication Barrier [...] 11/15/2018 13:52 EDT Electronically signed by Parveen [facility] Conversion Paving Foreman Cerner at 12/08/2022 12:30 PM CDT documented in this encounter Plan of Treatment Not on file documented as of this encounter Visit Diagnoses Not on filedocumented in this encounter
--- OUTSIDE RECORDS SUMMARY | 2025-05-09 13:10 | XMS_ITS | Referral Summary ---
Author Organization [employer] ([place], [place], [place], [place]) Address [address] [place] [address] Care Team Providers Care Repairer Pump Name Role Phone Unavailable Primary Care Provider [...]
--- OUTSIDE RECORDS SUMMARY | 2025-05-09 13:10 | XMS_ITS | Encounter Summary ---
Author Organization [employer] [facility] ([place], [place], [place], [place]) Address [address] [place] [address] Care Team Providers Care Insurance Processor Name Role Phone Unavailable Primary Care Provider Unavailabl e Encounter Details Date Type Department Care Team (Late st Contact Info) Description 11/28/2018 Transcribed Document [facility] [place] Medicine [address] [place] [address] ProviderErika MD [address] [place] [address] Social History Tobacco Use [...] Erika ProviderMD - 11/28/2018 10:19 AM CDT [facility] Main OR IntraOp Summary Primary Physician: SAMAN BERNSTEIN MD-GAE Finalized Date/Time: 11/30/18 09:14:16 Pt. Name: DOTTIE VILLASENOR D.O.B./Sex: 1940 Male Med Rec #: [id number] Physician: JULIO CESAR CARVALHO MD-[facility] Financial #: [id number] Pt. Type: I Room/Bed: [facility]/1 Admit/Disch: 11/16/18 06:45:00 - Institution: [facility] IntraOp Case Attendance Entry 1 Entry 2 Entry 3 Case Attendee SAMAN BERNSTEIN MD-SALMA GARCIA MD WURTELE, JOHN L. Role Performed Surgeon/Proceduralist, Anesthesiologist Marine Pilot, Ancillary First Time In 11/28/18 10:10:00 11/28/18 10:10:00 11/28/18 10:10:00 Time Out 11/28/18 10:35:00 11/28/18 10:35:00 11/28/18 10:35:00 Procedure Esophagogastroduodenosco Esophagogastroduodenosco Esophagogastroduodenosco py py py Other Attendee Superficial Wound Closed By: Last Modified By: Sukumar Casanova, Sukumar Gibbs, Sukumar Gibbs RN 11/28/18 11:00:07 11/28/18 11:00:07 11/28/18 11:00:07 Entry 4 Entry 5 Case Attendee Dianne Garcia, Sukumar Gibbs, TONJA Role Performed Staff Developer, First Staff Developer, Second Time In 11/28/18 10:10:00 11/28/18 10:10:00 Time Out 11/28/18 10:35:00 11/28/18 10:35:00 Procedure Esophagogastroduodenosco Esophagogastroduodenosco py py Other Attendee Superficial Wound Closed By: Last Modified By: Sukumar Casanova, Sukumar Gibbs RN 11/28/18 11:00:07 11/28/18 11:00:07 [facility] IntraOp Case Attendance Audit 11/28/18 11:00:07 Production Shift Supervisor: ANDRADES Modifier: PANTANOS 1 <+> Time Out 1 <*> Procedure Esophagogastroduodenoscopy 2 <+> Time Out 2 <*> Procedure Esophagogastroduodenoscopy 3 <+> Time Out 3 <*> Procedure Esophagogastroduodenoscopy 4 <+> Time Out 4 <*> Procedure Esophagogastroduodenoscopy 5 <+> Time Out 5 <*> Procedure Esophagogastroduodenoscopy 11/28/18 10:20:36 Production Shift Supervisor: FABIANAANOS Modifier: PANTANOS <+> 1 Procedure 2 <+> Time In 2 <*> Procedure Esophagogastroduodenoscopy 3 <+> Time In 3 <*> Procedure Esophagogastroduodenoscopy 4 <+> Time In 4 <*> Procedure Esophagogastroduodenoscopy 5 <+> Time In 5 <*> Procedure Esophagogastroduodenoscopy [facility] IntraOp Case Times Entry 1 Patient In Room Time 11/28/18 10:10:00 Out Room Time 11/28/18 10:35:00 Anesthesia Start Time 11/28/18 10:10:00 Stop Time 11/28/18 10:35:00 Surgery / Procedure Times Start Time 11/28/18 10:19:00 Stop Time 11/28/18 10:33:00 Last Modified By: Sukumar Casanova RN 11/28/18 10:59:40 [facility] IntraOp Case Times Audit 11/28/18 10:59:40 Production Shift Supervisor: PANTANOS Modifier: PANTANOS <+> 1 Out Room Time <+> 1 Stop Time <+> 1 Stop Time 11/28/18 10:22:00 Production Shift Supervisor: PANTANOS Modifier: PANTANOS <+> 1 Start Time [facility] IntraOp Departure from OR Entry 1 Integumentary Assessment Transfer/Handoff Transfer to PACU Phase I Handoff Method Bedside/Face to face, Online nursing summary Post-op Transport Stretcher/Gurney Via Patient Transport Sukumar Casanova RN, Accompanied by SALMA MARROQUIN MD Last Modified By: Sukumar Casanova RN 11/28/18 10:25:50 [facility] IntraOp Departure from OR Audit 11/28/18 10:25:50 Production Shift Supervisor: FABIANAANOS Modifier: PANTANOS 1 <*> Patient Transport Accompanied by Sukumar Casanova RN [facility] IntraOp Fire Risk Assessment Entry 1 Fire [...] Modified By: Sukumar Casanova RN 11/28/18 10:15:58 [facility] IntraOp General Case Sales Producer 1 Case Information OR OR [facility] Case Level 1 Room Verified Yes Wound Class II - Clean-Contaminated Specialty SN Gastroenterology Anesthesia Type General ASA Class 4E Diagnosis Preop Diagnosis GASTRIC BLEED Postop Same As Preop Yes Postop Diagnosis GASTRIC BLEED Last Modified By: Sukumar Casanova RN 11/28/18 10:18:38 [facility] IntraOp General Case Data Audit 11/28/18 10:18:38 Production Shift Supervisor: WILL Modifier: PANTANOS <+> 1 Postop Same As Preop <+> 1 Preop Diagnosis <+> 1 Postop Diagnosis [facility] IntraOp Intraoperative Assessment Entry 1 Handoff Method Bedside/Face to face, Online nursing summary Valid History / Yes Physical in Chart Preoperative Yes Checklist Reviewed/Evaluated Allergies Reviewed Yes Patient is Latex No Sensitive Level of WDL Consciousness (WDL = Alert, Oriented to Person, Place, and Time) Skin Assessment No Verified Present Upon IVs Arrival to OR Last Modified By: Sukumar Casanova RN 11/28/18 10:21:06 [facility] IntraOp Intraoperative Equipment Entry 1 Type Monitoring Equipment Intraop Monitoring Electrocardiogram Three lead placement (ECG) Electrode Placement Blood Pressure Non-Invasive BP Device Source Blood Pressure Arm, right upper Location Pulse Oximeter Hand, left Probe Site Antiembolic Devices Scopes Photo/Video Documentation Last Modified By: Sukumar Casanova RN 11/28/18 10:21:34 [facility] IntraOp Patient Positioning Entry 1 Procedure Esophagogastroduodenosco [...] Modified By: Sukumar Casanova RN 11/28/18 10:20:33 [facility] IntraOp Sign In Entry 1 Patient, Site, [...] Modified By: Sukumar Casanova RN 11/28/18 10:22:31 [facility] IntraOp Sign Out Entry 1 RN Confirmation [...] Modified By: Sukumar Casanova RN 11/28/18 11:00:01 [facility] IntraOp Sign Out Audit 11/28/18 11:00:01 Production Shift Supervisor: WILL Modifier: WILL <+> 1 RN Sign Out Signature Date/Time [facility] IntraOp Surgical Procedures Entry 1 Procedure Esophagogastroduodenosco py Additional (EGD WITH CONTROL OF Procedure BLEEDING) Description Primary Procedure Yes Primary Surgeon SAMAN BERNSTEIN MD-TAO Start 11/28/18 10:19:00 Stop 11/28/18 10:33:00 Anesthesia Type General Specialty SN Gastroenterology Wound Class II - Clean-Contaminated Last Modified By: Sukumar Casanova RN 11/28/18 10:59:52 [facility] IntraOp Surgical Procedures Audit 11/28/18 10:59:52 Production Shift Supervisor: WILL Modifier: WILL 1 <*> Procedure Esophagogastroduodenoscopy 1 <+> Specialty 11/28/18 10:59:43 Production Shift Supervisor: WILL Modifier: WILL <+> 1 Start <+> 1 Stop [facility] IntraOp Temp Regulation Devices Entry 1 Temp Regulation Temperature Warm blankets Regulation Device Temperature Full body Regulation Site Last Modified By: Sukumar Casanova RN 11/28/18 10:26:13 [facility] IntraOP Time Out Entry 1 Procedure to [...] Modified By: Sukumar Casanova RN 11/28/18 10:21:53 [facility] IntraOP Time Out Audit 11/28/18 10:21:53 Production Shift Supervisor: WILL Modifier: WILL 1 <+> Time Out Pause Time 1 <*> Procedure to be Performed Esophagogastroduodenoscopy Case Comments <None> Finalized By: JODI PITT Document Signatures Signed By: Sukumar Casanova RN 11/28/18 11:00 JODI PITT 11/30/18 09:14 Unfinalized History Date/Time Username Reason for Unfinalizing Freetext Reason for Unfinalizing 11/30/18 09:13 [email or web address] Correct Billing Electronically signed by Parveen [facility] Conversion Apprenticeship Training Representative Cerner at 12/08/2022 12:19 PM CDT documented in this encounter Plan of Treatment Not on file documented as of this encounter Visit Diagnoses Not on filedocumented in this encounter
--- OUTSIDE RECORDS SUMMARY | 2025-05-09 13:10 | XMS_ITS | Encounter Summary ---
Author Organization [employer] ([place], [place], [place], [place]) Address [address] [place] [address] Care Team Providers Care Refrigeration Supervisor Name Role Phone Unavailable Primary Care Provider Unavailabl e Encounter Details Date Type Department Care Team (Late st Contact Info) Description 11/24/2018 Transcribed Document [facility] [place] Medicine [address] [place] [address] ProviderErika MD [address] [place], [place] [id number] Social History Tobacco Use Types Packs/Day Years [...] 1940 Associated Diagnoses: CAD (coronary artery disease), [place] coronary artery; Thrombocytopenia; Coronary artery disease; HTN [...] S1, S2, No edema. Integumentary: Warm, Dry, [place], incision is C/D/I. Neurologic: Alert, left sided [...] CM has sent information to [facility] -Transfer to [facility] 11/24/18 -POD#8 -Awaiting transfer to [facility] -Awaiting response from [facility] EF 55-60% per echo 11/16/18 DVT Prophylaxis: SCDs Diagnosis CAD (coronary artery disease), [place] coronary artery - Admitting, Medical. Thrombocytopenia - [...] - Discharge, Medical. Electronically signed by Interface, [facility] Conversion Welt Pocket Machine Operator Cerner at 12/08/2022 12:10 PM CDT documented in this encounter Plan of Treatment Not on file documented as of this encounter Visit Diagnoses Not on filedocumented in this encounter
--- OUTSIDE RECORDS SUMMARY | 2025-05-09 13:10 | XMS_ITS | Encounter Summary ---
Author Organization [employer] ([place], [place], [place], [place]) Address [address] [place] [address] Care Team Providers Care Small Electric Engine Technician Name Role Phone Unavailable Primary Care Provider Unavailabl e Encounter Details Date Type Department Care Team (Late st Contact Info) Description 11/16/2018 Transcribed Document [facility] [place] [address] [place] [address] ProviderErika MD [address] [place] [address] Social History Tobacco Use Types [...] PROCEDURE: 1. Left radial arterial line. 2. Heber-Jovanna catheter. SURGEON: Porfirio Gaxiola IV, MD Procedure [...] introducer was applied over guidewire, then a Heber-Jovanna catheter was advanced down MAC introducer to [...]
--- OUTSIDE RECORDS SUMMARY | 2025-05-09 13:10 | XMS_ITS | Encounter Summary ---
Author Organization [employer] ([place], [place], [place], [place]) Address [address] [place] [address] Care Team Providers Care Teasel Setter Name Role Phone Unavailable Primary Care Provider Unavailabl e Encounter Details Date Type Department Care Team (Late st Contact Info) Description 11/16/2018 Transcribed Document [facility] [place] Family Medicine [address] [place] [address] ProviderErika MD [address] [place] [address] Social History Tobacco Use Types [...] form. Electronically signed by Christina Saini Conversion Electric Organ Inspector And Repairer Cerner at 12/12/2022 8:26 AM CDT documented in this encounter Plan of Treatment Not on file documented as of this encounter Visit Diagnoses Not on filedocumented in this encounter
--- OUTSIDE RECORDS SUMMARY | 2025-05-09 13:10 | XMS_ITS | Encounter Summary ---
Author Organization [employer] ([place], [place], [place], [place]) Address [address] [place] [address] Care Team Providers Care Mental Health Coordinator Name Role Phone Unavailable Primary Care Provider Unavailabl e Encounter Details Date Type Department Care Team (Late st Contact Info) Description 11/28/2018 Transcribed Document [facility] [place] [address] [place] [address] ProviderErika MD [address] [place] [address] Social History Tobacco Use Types [...] REESE OCONNOR Rn - 11/28/2018 17:22 EDT Electronically signed by Christina Saini Conversion Fighting Vehicle Systems Maintainer Cerner at 12/08/2022 12:28 PM CDT documented in this encounter Plan of Treatment Not on file documented as of this encounter Visit Diagnoses Not on filedocumented in this encounter
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
--- OUTSIDE RECORDS SUMMARY | 2025-05-09 13:10 | XMS_ITS | Encounter Summary ---
Author Organization [employer] ([place], [place], [place], [place]) Address [address] [place] [address] Care Team Providers Care Colorist Photography Name Role Phone Unavailable Primary Care Provider Unavailabl e Encounter Details Date Type Department Care Team (Late st Contact Info) Description 11/05/2018 Transcribed Document [facility] [place] [address] [place] [address] ProviderErika MD [address] [place] [address] Social History Tobacco Use Types [...] 11/05/2018 12:46 EDT Electronically signed by Parveen [facility] Conversion Master Black Belt Cerner at 12/08/2022 12:20 PM CDT documented in this encounter Plan of Treatment Not on file documented as of this encounter Visit Diagnoses Not on filedocumented in this encounter
--- OUTSIDE RECORDS SUMMARY | 2025-05-09 13:10 | XMS_ITS | Encounter Summary ---
Author Organization [employer] ([place], [place], [place], [place]) Address [address] [place] [address] Care Team Providers Care Airplane Tube Builder Name Role Phone Unavailable Primary Care Provider Unavailabl e Encounter Details Date Type Department Care Team (Late st Contact Info) Description 11/28/[address] 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
--- OUTSIDE RECORDS SUMMARY | 2025-05-09 13:10 | XMS_ITS | Encounter Summary ---
Author Organization [employer] ([place], [place], [place], [place]) Address [address] [place] [address] Care Team Providers Care Model And Mold Maker Plaster Name Role Phone Unavailable Primary Care Provider Unavailabl e Encounter Details Date Type Department Care Team (Late st Contact Info) Description 11/20/2018 Transcribed Document [facility] [place] [address] [place] [address] ProviderErika MD [address] [id number] Social History Tobacco Use Types Packs/Day Years [...] Bedtime, Routine HEENT saliva substitutes - 1 Meredith, Buccal, Liquid, Q2H, PRN for Other (See [...] Radiology results Radiology Results (Last 48 hours) [id number] -- 11/16/2018 06:45 CR Chest 1 Vw [...] Shortness of breathCOMPARISON: 1 day priorFINDINGS: A Elma-Jovanna catheter tip terminates in the SVC. The Elma-Ganzcatheter has been retracted. The cardiac silhouette is [...]
--- OUTSIDE RECORDS SUMMARY | 2025-05-09 13:10 | XMS_ITS | Encounter Summary ---
Author Organization [employer] ([place], [place], [place], [place]) Address [address] [place] [address] Care Team Providers Care Railroad Engineer Name Role Phone Unavailable Primary Care Provider Unavailabl e Encounter Details Date Type Department Care Team (Late st Contact Info) Description 11/28/2018 Transcribed Document [facility] [facility] [place] [address] [place] [address] ProviderErika MD [address] [place] [address] Social History Tobacco Use Types [...]
--- OUTSIDE RECORDS SUMMARY | 2025-05-09 13:10 | XMS_ITS | Encounter Summary ---
Author Organization [employer] ([place], [place], [place], [place]) Address [address] [place] [address] Care Team Providers Care Set Up And Lay Out Inspector Name Role Phone Unavailable Primary Care Provider Unavailabl e Encounter Details Date Type Department Care Team (Late st Contact Info) Description 11/16/2018 Transcribed Document [facility] [place] [address] [place] [address] ProviderErika MD [address] [place] [address] Social History Tobacco Use Types [...] Ambulatory Legal Guardian : Spouse Support Person/Patient Overage Shortage And Damage Clerk : Yes Support Person/Pt Rep Name : Connie- Sumeet - son Support Person/Pt Rep Contact Information : [phone] home [phone] - cell Want Family/Rep/Phys Notified of Admit [...] : Patient, Medical Record Primary Language : Hungarian Preferred Communication Mode : Verbal Communication Barrier [...] Scale Risk Level : 25-45 Medium Risk [place] Fall Interventions : Adequate lighting, Assistive devices [...] Source : Measured Height Entry Format : [place] Height, Feet : 6 ft(Converted to: 183 cm, 72 Inch) Height, Inches : 1 Inch(Converted to: 0 ft 1 Inch, 2.54 cm) Clinical Height : 185.42 cm Weight Source : Standing scale Weight Entry Format : [place] Clinical Dosing Weight : 79.23 kg Weight, Pounds : 174 lb Weight, Ounces : 5 oz Body Surface Area (BSA) : 2.03 m2 Body Mass Index : 23 kg/m2 [place] Body Weight : 79 kg FROY NEIL [...]
--- OUTSIDE RECORDS SUMMARY | 2025-05-09 13:10 | XMS_ITS | Encounter Summary ---
Author Organization [employer] ([place], [place], [place], [place]) Address [address] [place] [address] Care Team Providers Care Agriculture Laboratory Technician Name Role Phone Unavailable Primary Care Provider Unavailabl e Encounter Details Date Type Department Care Team (Late st Contact Info) Description 11/05/2018 Transcribed Document [facility] [place] Family Medicine [address] [place] [address] ProviderErika MD [address] [place] [address] Social History Tobacco Use Types Packs/Day Years Used Date Smoking Tobacco: Never Assessed Sex and Gender Information Value Date Recorded Sex Assigned at Not on file Legal Sex Male 5:03 PM CDT Gender Identity Not on file Sexual Orientation Not on file documented as of this encounter Miscellaneous Notes * Cerner Conversion Note - Erika ProviderMD - 11/05/2018 12:48 PM [address]T [address] [address] Patient Copy Patient Information: Name: DOTTIE VILLASENOR Current Date: 11/05/2018 12:48:54 : 1940 Patient Address: [address] [place] [id number] Patient Attending Physician: LEYLA ARMENDARIZ MD-CAR Primary Care Provider: DEMETRICE ARMIJO NP-JORGE Primary Care Provider Discharge Diagnosis: Weight on Admission: 170 lb, 0 oz Comment: Follow-up Instructions: With: Address: When: JULIO CESAR GAXIOLA [address] [place] [address], [address] [id number] Business (1) 1:30 PM Comments: Follow up with Dr. Gaxiola , surgeon, October at 1:30 pm With: Address: When: JULIO CESAR [address] [place] [address] Sencera (1) 1:15 PM Comments: Follow up with [...] you are awake and alert. ??? Take mfdh-ejd-pakukyk and prescription medicines only as told by [...] 05/31/2014 Document Revised: 01/12/2017 Document Reviewed: 11/29/2016 [employer] Interactive Patient Education ? 2017 Gem. Radial Site Care Introduction Refer to this [...] 02/26/2006 Document Revised: 01/15/2017 Document Reviewed: 01/11/2014 [employer] Interactive Patient Education ? 2017 Gem. CIGARETTE SMOKING: The facts are clear, cigarette smoking will shorten your life. Smoking can cause many illnesses along the way. As a healthcare provider, we recommend that you stop smoking. Assistance with quitting is available by contacting 5-560-XOPS-NOW. This is a free resource providing counseling, [...] Be sure to sign up for the [employer] patient portal, which gives you 16/03 access to your medical information ??? including these discharge instructions ??? using your computer, smartphone, or tablet. Just go to [employer] to get started. Questions? Call . [facility] would like to thank you for allowing us to assist you with your healthcare needs. HAMILTON Jarvis ROBERT H, (or screening representative) have received the above patient education materials/instructions and have verbalized understanding: Patient Signature _ Date/Time Patient Large Engine Assembler Signature (if needed) Date/Time Clinician/Hospital Large Engine Assembler Signature (if needed) Date/Time Electronically signed by Parveen, [facility] Conversion Supervisor Belt And Link Assembly Cerner at 12/08/2022 12:14 PM CDT documented in this encounter Plan of Treatment Not on file documented as of this encounter Visit Diagnoses Not on filedocumented in this encounter
--- OUTSIDE RECORDS SUMMARY | 2025-05-09 13:10 | XMS_ITS | Encounter Summary ---
Author Organization [employer] ([place], [place], [place], [place]) Address [address] [place] [address] Care Team Providers Care Class B Truck Driver Name Role Phone Unavailable Primary Care Provider Unavailabl e Encounter Details Date Type Department Care Team (Late st Contact Info) Description 11/05/2018 Transcribed Document [facility] [place] Family Medicine [address] [place] [address] ProviderErika MD [address] [place], [...] Electronically signed by Christina Saini Conversion Business Analysis Consultant Cerner at 12/08/2022 12:12 PM CDT documented in this encounter Plan of Treatment Not on file documented as of this encounter Visit Diagnoses Not on filedocumented in this encounter
--- OUTSIDE RECORDS SUMMARY | 2025-05-09 13:10 | XMS_ITS | Encounter Summary ---
Author Organization [employer] ([place], [place], [place], [place]) Address [address] [place] [address] Care Team Providers Care Technology Specialist Name Role Phone Unavailable Primary Care Provider Unavailabl e Encounter Details Date Type Department Care Team (Late st Contact Info) Description 11/05/2018 Transcribed Document [facility] Cardiology [address] [place] [address] Lc Armendariz MD [address] [facility] [address] [place] [address] Social History Tobacco Use Types [...] 1940 Associated Diagnoses: None Author: LC ARMENDARIZ MD-[facility] Basic Information PCP: Sanjuana Valdez Cardiology; Porfirio [...] All Problems Prostate stricture / SNOMED CT 57372654 / Confirmed HTN - Hypertension / SNOMED CT 2964364633 / Confirmed Hypothyroidism / SNOMED CT 17972134 / Confirmed Aneurysm / SNOMED CT 5428846823 / Confirmed Disorder of prostate / SNOMED CT 51518398 / Confirmed Thyroid disease / SNOMED CT 153849910 / Confirmed Restless legs syndrome / SNOMED CT 95925748 / Confirmed Cancer of skin of face / SNOMED CT 8859278843 / Confirmed At risk for sleep apnea / IMO 26139099 / Confirmed Resolved: Bladder stone / SNOMED CT 225544765 Histories No education data available. Social & Psychosocial Habits Alcohol 04/16/2017 Alcohol Use History, Social Habits No Alcohol Use in Last Twelve Months No Substance Abuse 04/16/2017 Recreational Drug Use History No Recreational Drug Use Last 12 Months No Tobacco 04/16/2017 Smoking Status Never smoker Past Medical History: Active HTN - Hypertension (2314291423) Hypothyroidism (08203390) Family History: Entire family history is negative. [...] of motion, Normal strength. Integumentary: Warm, Dry, [place]. Neurologic: Alert, Oriented. Psychiatric: Cooperative. Review / [...]
--- OUTSIDE RECORDS SUMMARY | 2025-05-09 13:10 | XMS_ITS | Encounter Summary ---
Author Organization [employer] ([place], [place], [place], [place]) Address [address] [place] [address] Care Team Providers Care Pond Scaler Name Role Phone Unavailable Primary Care Provider Unavailabl e Encounter Details Date Type Department Care Team (Late st Contact Info) Description 12/01/2018 Transcribed Document [facility] [place] [address] [place] [address] ProviderErika MD [address] [place] [address] Social History Tobacco Use Types Packs/Day Years Used Date Smoking Tobacco: Never Assessed Sex and Gender Information Value Date Recorded Sex Assigned at Not on file Legal Sex Male 5:03 PM CDT Gender Identity Not on file Sexual Orientation Not on file documented as of this encounter Miscellaneous Notes * Cerner Conversion Note - Historical ProviderMD - 12/01/2018 2:00 AM CDT Speech Language Specialist Details Entered On: 12/01/2018 0:23 EDT Performed [...] EDT Electronically signed by Christina Saini Conversion Category Development Analyst Cerner at 12/08/2022 12:32 PM CDT documented in this encounter Plan of Treatment Not on file documented as of this encounter Visit Diagnoses Not on filedocumented in this encounter
--- OUTSIDE RECORDS SUMMARY | 2025-05-09 13:10 | XMS_ITS | Encounter Summary ---
Author Organization [employer] ([place], [place], [place]) Address [address] [place] [address] Care Team Providers Care Intervention Specialist Name Role Phone Unavailable Primary Care Provider Unavailabl e Encounter Details Date Type Department Care Team (Late st Contact Info) Description 11/28/2018 Transcribed Document [facility] [place] Medicine [address] [place] [address] ProviderErika MD [address] [place] [address] Social History Tobacco Use Types [...] access. 20R shoulder x1 attempt using vein roving hand. 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
--- OUTSIDE RECORDS SUMMARY | 2025-05-09 13:10 | XMS_ITS | Encounter Summary ---
Author Organization [employer] ([place], [place], [place], [place]) Address [address] [place] [address] Care Team Providers Care Senior Analyst Programmer Name Role Phone Unavailable Primary Care Provider Unavailabl e Encounter Details Date Type Department Care Team (Late st Contact Info) Description 11/20/2018 Transcribed Document [facility] Medicine [address] [facility] [address] [place] [address] Eloy Rodrigues MD [address] [facility] [address] [place], [place] [id number] Social History Tobacco Use Types Packs/Day Years [...] 16:32:27 Trans: 11/20/2018 22:52:43 Processed: 11/22/2018 09:57:30 [place] [employer] CC1: Eloy Rodrigues M.D. documented in this encounter Plan of Treatment Not on file documented as of this encounter Visit Diagnoses Not on filedocumented in this encounter
--- OUTSIDE RECORDS SUMMARY | 2025-05-09 13:10 | XMS_ITS | Encounter Summary ---
Author Organization [employer] ([place], [place], [place], [place]) Address [address] [place] [address] Care Team Providers Care Education Officer Name Role Phone Unavailable Primary Care Provider Unavailabl e Encounter Details Date Type Department Care Team (Late st Contact Info) Description 11/19/2018 Transcribed Document [facility] [place] Medicine [address] [place] [address] ProviderErika MD [address] [place], [place] [id number] Social History Tobacco Use Types Packs/Day Years [...] 1940 Associated Diagnoses: CAD (coronary artery disease), [place] coronary artery; Thrombocytopenia; Coronary artery disease; HTN [...] S1, S2, No edema. Integumentary: Warm, Dry, [place], incision is C/D/I, He did not follow [...] Prophylaxis: SCDs Diagnosis CAD (coronary artery disease), [place] coronary artery - Admitting, Medical. Thrombocytopenia - [...]
--- OUTSIDE RECORDS SUMMARY | 2025-05-09 13:10 | XMS_ITS | Encounter Summary ---
Author Organization [employer] ([place], [place], [place], [place]) Address [address] [place] [address] Care Team Providers Care Ear Flap Binder Name Role Phone Unavailable Primary Care Provider Unavailabl e Encounter Details Date Type Department Care Team (Late st Contact Info) Description 11/27/2018 Transcribed Document [facility] [place] Family Medicine [address] [place] [address] ProviderErika MD [address] [place] [address] Social History Tobacco Use Types [...]
--- OUTSIDE RECORDS SUMMARY | 2025-05-09 13:10 | XMS_ITS | Encounter Summary ---
Author Organization [employer] ([place], [place], [place], [place]) Address [address] [place] [address] Care Team Providers Care Security Expert Name Role Phone Unavailable Primary Care Provider Unavailabl e Encounter Details Date Type Department Care Team (Late st Contact Info) Description 11/16/2018 Transcribed Document [facility] [place] Family Medicine [address] [place] [address] ProviderErika MD [address] [place] [address] Social History Tobacco Use Types [...] VILLASENOR D.O.B./Sex: 1940 Male Med Rec #: [id number] Physician: JULIO CESAR CARVALHO MD-CAT Financial #: [id number] Pt. Type: I Room/Bed: ASA/8 Admit/Disch: 11/16/18 [...]
--- OUTSIDE RECORDS SUMMARY | 2025-05-09 13:10 | XMS_ITS | Encounter Summary ---
Author Organization [employer] ([place], [place], [place], [place]) Address [address] [place] [address] Care Team Providers Care Relations Specialist Name Role Phone Unavailable Primary Care Provider Unavailabl e Encounter Details Date Type Department Care Team (Late st Contact Info) Description 11/19/2018 Transcribed Document [facility] [place] [address] [place] [address] ProviderErika MD [address] [place] [address] Social History Tobacco Use Types [...] TF regimen to add fiber. EST NEEDS: 0494-0983 kcal (25-30kcal/kg), 95g pro (1.2g/kg) 1. Change TF to Jevity 1.5 @ 60 ml/hr + 1 bottle [id number] daily (Provides 2040 kcal; 99 gm pro) Goal: meet est needs 2. Monitor alertness and appropriateness for FLOW WORKER eval Goal: est safe po diet 3. Weigh pt 2x weekly Goal: no sig weight changes High Risk DAVION GREEN RD, LD - 11/19/2018 12:43 EDT Electronically signed by Parveen, [facility] Conversion Marine Consultant Cerner at 12/08/2022 12:18 PM CDT documented in this encounter Plan of Treatment Not on file documented as of this encounter Visit Diagnoses Not on filedocumented in this encounter
--- OUTSIDE RECORDS SUMMARY | 2025-05-09 13:10 | XMS_ITS | Encounter Summary ---
Author Organization [employer] ([place], [place], [place], [place]) Address [address] [place] [address] Care Team Providers Care Ambulance Assistant Name Role Phone Unavailable Primary Care Provider Unavailabl e Encounter Details Date Type Department Care Team (Late st Contact Info) Description 11/27/2018 Transcribed Document [facility] [place] [address] [place] [address] ProviderErika MD [address] [place], [place] [id number] Social History Tobacco Use Types Packs/Day Years Used Date Smoking Tobacco: Never Assessed Sex and Gender Information Value Date Recorded Sex Assigned at Not on file Legal Sex Male 5:03 PM CDT Gender Identity Not on file Sexual Orientation Not on file documented as of this encounter Miscellaneous Notes * Cerner Conversion Note - Historical ProviderMD - 11/27/2018 2:00 AM CDT Online Marketer Details Entered On: 11/27/2018 3:00 EDT Performed [...]
--- OUTSIDE RECORDS SUMMARY | 2025-05-09 13:10 | XMS_ITS | Encounter Summary ---
Author Organization [employer] ([place], [place], [place], [place]) Address [address] [place] [address] Care Team Providers Care Fiberglass Boat Assembly Supervisor Name Role Phone Unavailable Primary Care Provider Unavailabl e Encounter Details Date Type Department Care Team (Late st Contact Info) Description 11/24/2018 Transcribed Document [facility] [place] [address] [place] [address] ProviderErika MD [address] [place], [...]
--- OUTSIDE RECORDS SUMMARY | 2025-05-09 13:10 | XMS_ITS | Encounter Summary ---
Author Organization [employer] ([place], [place], [place], [place]) Address [address] [place] [address] Care Team Providers Care Ends Breakage Clerk Name Role Phone Unavailable Primary Care Provider Unavailabl e Encounter Details Date Type Department Care Team (Late st Contact Info) Description 11/16/2018 Transcribed Document [facility] [place] Family Medicine [address] [place] [address] ProviderErika MD [address] [place] [address] Social History Tobacco Use Types [...] : 11/17/2018 00:00 Atherosclerotic heart disease of [place] dehe coronary artery without angina pectoris 11/17/2018 00:00 Essential (primary) hypertension 11/17/2018 00:00 Hypothyroidism, unspecified 11/17/2018 00:00 Nonrheumatic aortic (valve) insufficiency 11/17/2018 00:00 Restless legs syndrome 11/17/2018 00:00 Thoracic aortic aneurysm, without rupture 11/17/2018 00:00 Thrombocytopenia, unspecified 11/16/2018 00:00 Atherosclerotic heart disease of yocha dehe coronary artery without angina pectoris 11/16/2018 [...] ROGER LEWIS, PT - 11/18/2018 16:07 EDT Fishing Floats Assembler Goals Mobility/Bed Mobility LTG PT Grid Goal [...] ROGER LEWIS, PT - 11/18/2018 16:07 EDT [place] PT Charges PT Eval Moderate Complexity : 1 ROGER LEWIS, PT - 11/18/2018 16:07 EDT documented in this encounter Plan of Treatment Not on file documented as of this encounter Visit Diagnoses Not on filedocumented in this encounter
--- OUTSIDE RECORDS SUMMARY | 2025-05-09 13:10 | XMS_ITS | Encounter Summary ---
Author Organization [employer] ([place], [place], [place], [place]) Address [address] [place] [address] Care Team Providers Care Plaster Pattern Caster Name Role Phone Unavailable Primary Care Provider Unavailabl e Encounter Details Date Type Department Care Team (Late st Contact Info) Description 11/16/2018 Transcribed Document [facility] [address] [place] [address] Niles Nunez MD [address] [place], [place] [address] Social History Tobacco Use Types Packs/Day Years [...]
--- OUTSIDE RECORDS SUMMARY | 2025-05-09 13:10 | XMS_ITS | Encounter Summary ---
Author Organization [employer] ([place], [place], [place], [place]) Address [address] [place] [address] Care Team Providers Care Button Station Worker Name Role Phone Unavailable Primary Care Provider Unavailabl e Encounter Details Date Type Department Care Team (Late st Contact Info) Description 11/27/2018 Transcribed Document [facility] [place] [address] [place] [address] ProviderErika MD [address] [place] [address] Social History Tobacco Use Types [...]
--- OUTSIDE RECORDS SUMMARY | 2025-05-09 13:10 | XMS_ITS | Encounter Summary ---
Author Organization [employer] ([place], [place], [place], [place]) Address [address] [place] [address] Care Team Providers Care Envelope Adjuster Name Role Phone Unavailable Primary Care Provider Unavailabl e Encounter Details Date Type Department Care Team (Late st Contact Info) Description 11/16/2018 Transcribed Document [facility] [place] Family Medicine [address] [place] [address] ProviderErika MD [address] [place] [address] Social History Tobacco Use [...] On: 11/16/2018 12:27 EDT by Lorin Pratt [facility] Phone Call for Consults Consult Phone Call/Page Attempt : First call Lorin Pratt [facility] - 11/16/2018 13:34 EDT documented in this encounter Plan of Treatment Not on file documented as of this encounter Visit Diagnoses Not on filedocumented in this encounter
--- OUTSIDE RECORDS SUMMARY | 2025-05-09 13:10 | XMS_ITS | Encounter Summary ---
Author Organization [employer] ([place], [place], [place], [place]) Address [address] [place] [address] Care Team Providers Care Catcher Plug Name Role Phone Unavailable Primary Care Provider Unavailabl e Encounter Details Date Type Department Care Team (Late st Contact Info) Description 11/26/2018 Transcribed Document [facility] [place] Family Medicine [address] [place] [address] ProviderErika MD [address] [place] [address] Social History Tobacco Use Types [...]
--- OUTSIDE RECORDS SUMMARY | 2025-05-09 13:10 | XMS_ITS | Encounter Summary ---
Author Organization [employer] ([place], [place], [place], [place]) Address [address] [place] [address] Care Team Providers Care Research Laboratory Specialist Name Role Phone Unavailable Primary Care Provider Unavailabl e Encounter Details Date Type Department Care Team (Late st Contact Info) Description 11/28/2018 Transcribed Document [facility] [place] Family [place] [address] [place] [address] ProviderErika MD [address] [place], [place] [phone] Social History Tobacco Use Types Packs/Day Years [...] mg, Oral, At Bedtime saliva substitutes: 1 Saxe, Buccal, Q2H, PRN: Other (See Comment) warfarin: [...] Q1H saliva substitute liq 59 mL 1 Saxe, Buccal, Q2H Problem list: Medical Aneurysm, thoracic aortic / SNOMED CT 2264770443 / Confirmed Aortic valve insufficiency / SNOMED CT 172767565 / Confirmed Arthritis / SNOMED CT 6623446 / Confirmed At risk for sleep apnea / IMO 44710594 / Confirmed CAD (coronary artery disease) / SNOMED CT 02580805 / Confirmed HTN - Hypertension / SNOMED CT 6549697400 / Confirmed Hypothyroidism / SNOMED CT 29998059 / Confirmed Frequent urination / SNOMED CT 025696891 / Confirmed Nocturia / SNOMED CT 492120463 / Confirmed Prostate stricture / SNOMED CT 59465202 / Confirmed, Active Problems (13) Aneurysm, thoracic [...] swelling - improved today. Integumentary: Warm, Dry, [place], incision is C/D/I. Neurologic: Alert, Oriented, left [...] (Current Encounter/Past 24 Hours) PT 20.8 Second(s) [place] 11/28/2018 09:08 PTT 27.6 Second(s) 11/28/2018 08:53 INR 2.0 [place] 11/28/2018 09:08 . Impression and Plan Plan: [...] of discharge- CM has sent information to [facility] -Transfer to [facility] 11/24/18 -POD#8 -Awaiting transfer to [facility] -Awaiting response from [facility] 11/25/18 -left upper extremity venous doppler - doppler this am positive for LUE DVT - will start coumadin and heparin bridge -awaiting [facility] 11/26/18 -Heparin drip and coumadin for LUE DVT Left arm swelling improved today INR 1.1 today, INR goal 2-3 Possibly transfer to [facility] this weekend 11/27/18: Left arm swelling continues to improve Continues on Coumadin and heparin bridge INR: 1.4 (1.1 yesterday) goal: 2 to 3 [facility] soon,? Tomorrow 11/28/18 BP in [...]
--- OUTSIDE RECORDS SUMMARY | 2025-05-09 13:10 | XMS_ITS | Encounter Summary ---
Author Organization [employer] ([place], [place], [place], [place]) Address [address] [place] [address] Care Team Providers Care Coil Winder Repair Name Role Phone Unavailable Primary Care Provider Unavailabl e Encounter Details Date Type Department Care Team (Late st Contact Info) Description 11/05/2018 Transcribed Document [facility] [place] [address] [place] [address] ProviderErika MD [address] [place] [address] Social History Tobacco Use Types [...]
--- OUTSIDE RECORDS SUMMARY | 2025-05-09 13:10 | XMS_ITS | Encounter Summary ---
Author Organization [employer] ([place], [place], [place], [place]) Address [address] [place] [address] Care Team Providers Care Licensed Pesticide Applicator Name Role Phone Unavailable Primary Care Provider Unavailabl e Encounter Details Date Type Department Care Team (Late st Contact Info) Description 12/01/2018 Transcribed Document [facility] [place] [address] [place] [address] ProviderErika MD [address] [place] [address] Social History Tobacco Use Types [...]
--- OUTSIDE RECORDS SUMMARY | 2025-05-09 13:10 | XMS_ITS | Encounter Summary ---
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 No needs at this time. Mandaeism Preference : Episcopalian MALU SHEPARD Chaplain-Non Cert - 11/28/2018 5:34 EDT documented in this encounter Plan of Treatment Not on file documented as of this encounter Visit Diagnoses Not on filedocumented in this encounter
--- OUTSIDE RECORDS SUMMARY | 2025-05-09 13:10 | XMS_ITS | Encounter Summary ---
Author Organization [employer] ([place], [place], [place], [place]) Address [address] [place] [address] Care Team Providers Care Interlocking Installer Name Role Phone Unavailable Primary Care Provider Unavailabl e Encounter Details Date Type Department Care Team (Late st Contact Info) Description 11/16/2018 Transcribed Document [facility] [place] Family Medicine [address] [place] [address] ProviderErika MD [address] [place] [address] Social History Tobacco Use Types Packs/Day Years Used Date Smoking Tobacco: Never Assessed Sex and Gender Information Value Date Recorded Sex Assigned at Not on file Legal Sex Male 5:03 PM CDT Gender Identity Not on file Sexual Orientation Not on file documented as of this encounter Miscellaneous Notes * Cerner Conversion Note - Erika ProviderMD - 11/16/2018 8:20 AM CDT [facility] Main OR IntraOp Summary Primary Physician: JULIO CESAR CARVALHO MD-CAT Finalized Date/Time: 11/17/18 10:03:54 Pt. Name: DOTTIE VILLASENOR D.O.B./Sex: 1940 Male Med Rec #: [id number] Physician: JULIO CESAR CARVALHO MD-CAT Financial #: [id number] Pt. Type: I Room/Bed: [facility] Admit/Disch: 11/16/18 06:45:00 - Institution: [facility] IntraOp Case Attendance Entry 1 Entry 2 Entry 3 Case Attendee JULIO CESAR CARVALHO MD-CAT ALTIZER, LISA E, RN Alton Gamble, utility repairer Role Performed Surgeon/Proceduralist, Microscopist, First Rand Butting Machine Operator First Time In 11/16/18 07:06:00 11/16/18 07:06:00 [...] CAROLYN, RN Role Performed Scrub, First Anesthesiologist Microscopist, Second Time In 11/16/18 07:06:00 11/16/18 07:06:00 [...] Pref Card Builder Role Performed Physician assistant professor of criminal justice Physician assistant professor of criminal justice Microscopist, Second Time In 11/16/18 07:06:00 11/16/18 09:00:00 [...] Attendee Colette Alexander, LISETH Dimas, Alton Gamble, utility repairer Pref Card Builder Rand Butting Machine Operator Role Performed Scrub, First Rand Butting Machine Operator Rand Butting Machine Operator Time In 11/16/18 10:32:00 11/16/18 11:05:00 11/16/18 [...] 12:25:17 Entry 13 Case Attendee LISETH ROE, Rand Butting Machine Operator Role Performed Rand Butting Machine Operator Time In 11/16/18 12:13:00 Time Out 11/16/18 12:30:00 Procedure Aortic Aneurysm Ascending Repair, CABG w Aortic Valve, Transesophageal Echocardiogram Other Attendee Superficial Wound Closed By: Last Modified By: RADHA VALENCIA, TONJA 11/16/18 12:40:56 [facility] IntraOp Case Attendance Audit 11/16/18 12:40:56 Ice Cream Dipper: ALTIZEL Modifier: ALTIZEL 1 <+> Time Out [...] w Aortic Valve, Transesophageal Echocardiogram 11/16/18 12:25:17 Ice Cream Dipper: ALTIZEL Modifier: ALTIZEL 12 <+> Time Out 12 <*> Procedure Aortic Aneurysm Ascending Repair, CABG w Aortic Valve <+> 13 Case Attendee <+> 13 Role Performed <+> 13 Time In <+> 13 Procedure 11/16/18 11:17:39 Ice Cream Dipper: ALTIZEL Modifier: ALTIZEL <+> 12 Case Attendee <+> 12 Role Performed <+> 12 Time In <+> 12 Procedure 11/16/18 11:17:17 Ice Cream Dipper: ALTIZEL Modifier: ALTIZEL 3 <+> Time Out 3 <*> Procedure Transesophageal Echocardiogram <+> 11 Case Attendee <+> 11 Role Performed <+> 11 Time In <+> 11 Time Out <+> 11 Procedure <+> 11 Other Attendee 11/16/18 10:47:10 Ice Cream Dipper: ALTIZEL Modifier: ALTIZEL <+> 10 Case Attendee <+> 10 Role Performed <+> 10 Time In <+> 10 Time Out <+> 10 Procedure <+> 10 Other Attendee 11/16/18 09:58:31 Ice Cream Dipper: ALTIZEL Modifier: ALTIZEL <+> 1 Procedure <+> 2 Procedure <+> 3 Procedure <+> 4 Procedure <+> 5 Procedure <+> 6 Procedure 7 <*> Procedure Aortic Aneurysm Ascending Repair, CABG w Aortic Valve 8 <*> Procedure Aortic Aneurysm Ascending Repair, CABG w Aortic Valve 9 <*> Procedure Aortic Aneurysm Ascending Repair, CABG w Aortic Valve 11/16/18 09:50:06 Ice Cream Dipper: ALTIZEL Modifier: ALTIZEL 9 <+> Time Out 9 <*> Procedure Aortic Aneurysm Ascending Repair, CABG w Aortic Valve 11/16/18 09:39:14 Ice Cream Dipper: ALTIZEL Modifier: ALTIZEL <+> 9 Case Attendee <+> 9 Role Performed <+> 9 Time In <+> 9 Procedure <+> 9 Other Attendee 11/16/18 09:28:12 Ice Cream Dipper: ALTIZEL Modifier: ALTIZEL <+> 8 Case Attendee <+> 8 Role Performed <+> 8 Time In <+> 8 Procedure 11/16/18 08:24:20 Ice Cream Dipper: ALTIZEL Modifier: ALTIZEL 7 <+> Time Out 7 <*> Procedure Aortic Aneurysm Ascending Repair, CABG w Aortic Valve 11/16/18 08:21:45 Ice Cream Dipper: ALTIZEL Modifier: ALTIZEL <+> 6 Time Out 11/16/18 08:10:59 Ice Cream Dipper: ALTIZEL Modifier: ALTIZEL 6 <*> Time In 11/16/18 07:00:00 <+> 7 Case Attendee <+> 7 Role Performed <+> 7 Time In <+> 7 Procedure 11/16/18 07:19:51 Ice Cream Dipper: ALTIZEL Modifier: ALTIZEL <+> 2 Time In <+> 3 Time In <+> 4 Time In <+> 5 Time In 11/16/18 07:19:37 Ice Cream Dipper: ALTIZEL Modifier: ALTIZEL <+> 1 Time In <+> 2 Case Attendee <+> 2 Role Performed <+> 3 Case Attendee <+> 3 Role Performed <+> 4 Case Attendee <+> 4 Role Performed <+> 5 Case Attendee <+> 5 Role Performed <+> 6 Case Attendee <+> 6 Role Performed <+> 6 Time In [facility] IntraOp Case Times Entry 1 Patient In Room Time 11/16/18 07:06:00 Out Room Time 11/16/18 12:30:00 Anesthesia Start Time 11/16/18 07:06:00 Stop Time 11/16/18 12:30:00 Anesthesia Ready 11/16/18 07:06:00 Surgery / Procedure Times Start Time 11/16/18 08:20:00 Stop Time 11/16/18 12:22:00 Last Modified By: RADHA VALENCIA RN 11/16/18 07:17:32 [facility] IntraOp Case Times Audit 11/16/18 12:30:30 Ice Cream Dipper: ALTIZEL Modifier: ALTIZEL <+> 1 Out Room Time <+> 1 Stop Time <+> 1 Stop Time 11/16/18 08:21:57 Ice Cream Dipper: ALTIZEL Modifier: ALTIZEL <+> 1 Start Time [facility] IntraOp Cautery Entry 1 ESU Identification Cautery Type Monopolar ESU ID Number [id number] ID Type Hospital Number Cautery Settings Cut [...] Modified By: RADHA VALENCIA RN 11/16/18 08:42:12 [facility] IntraOp Communication Entry 1 Entry [...] RN 11/16/18 11:53:58 11/16/18 12:13:00 11/16/18 12:13:00 [facility] IntraOp Communication Audit 11/16/18 12:13:00 Ice Cream Dipper: ALTIZEL Modifier: ALTIZEL <+> 8 Communication By <+> 8 Date and Time <+> 8 Communication To <+> 9 Communication By <+> 9 Date and Time <+> 9 Communication To <+> 9 Comment 11/16/18 11:53:58 Ice Cream Dipper: ALTIZEL Modifier: ALTIZEL <+> 7 Communication By <+> 7 Date and Time <+> 7 Communication To <+> 7 Comment 11/16/18 11:31:42 Ice Cream Dipper: ALTIZEL Modifier: ALTIZEL <+> 6 Communication By <+> 6 Date and Time <+> 6 Communication To 11/16/18 10:22:56 Ice Cream Dipper: ALTIZEL Modifier: ALTIZEL <+> 5 Communication By <+> 5 Date and Time <+> 5 Communication To 11/16/18 09:10:41 Ice Cream Dipper: ALTIZEL Modifier: ALTIZEL <+> 3 Communication By <+> 3 Date and Time <+> 3 Communication To <+> 4 Communication By <+> 4 Date and Time <+> 4 Communication To <+> 4 Comment [facility] IntraOp Counts Verification Entry 1 [...] LISA E, RN 11/16/18 07:20:29 11/16/18 11:54:29 [facility] IntraOp Counts Verification Audit 11/16/18 11:54:29 Ice Cream Dipper: ALTIZEL Modifier: ALTIZEL <+> 2 Procedure <+> 2 Count Type <+> 2 Counts Verification Sequence <+> 2 Count Results <+> 2 Count Performed By (Scrub) <+> 2 Count Performed By (RN) 11/16/18 09:58:33 Ice Cream Dipper: ALTIZEL Modifier: ALTIZEL 1 <*> Procedure Aortic Aneurysm Ascending Repair, CABG w Aortic Valve [facility] IntraOp Counts Final Entry 1 Procedure Aortic Aneurysm Ascending Repair, CABG w Aortic Valve, Transesophageal Echocardiogram Final Count Info Count Type Sponge, Sharps, Instrument, Miscellaneous Counts Verification Skin Closure/end of Sequence procedure Count Results Correct, surgeon notified Counts Performed By Count Performed By MELODY MASON (Scrub) Count Performed By RADHA VALENCIA RN (RN) Last Modified By: RADHA VALENCIA RN 11/16/18 12:01:46 [facility] IntraOp Cultures and Spec Summary Entry 1 Cultrures and Specimens Specimen Ordered: Yes Specimens Types Pathology Specimen(s) Labeled Pathology and Sent to Last Modified By: RADHA VALENCIA RN 11/16/18 09:22:38 [facility] IntraOp Departure from OR Entry 1 Integumentary Assessment Integumentary WDL Assessment WDL Transfer/Handoff Transfer to ICU - Cardiovascular Post-op Transport Bed (including Via specialty) Patient Transport SHERRY NICHOLS, Accompanied by Tye KHAN Tom, utility repairer Last Modified By: RADHA VALENCIA RN 11/16/18 08:42:33 [facility] IntraOp Drains and Tubes Entry [...] LISA E, RN 11/16/18 08:42:54 11/16/18 08:42:54 [facility] IntraOp Dressing and Packing Entry 1 Entry 2 Type Dressing Dressing Location Mediastinum Mediastinum Wound Dressing Item 4x4's, Skin Closure Glue 4x4's Wound Packing Type Tape Type Supplemental Applications Applied By Other Comments Soft cloth paper tape Soft cloth paper tape Last Modified By: RADHA VALENCIA RN ALTIZER, LISA E, RN 11/16/18 08:43:06 11/16/18 08:53:50 [facility] IntraOp Dressing and Packing Audit 11/16/18 08:53:50 Ice Cream Dipper: SAIGEIZEL Modifier: ALTIZEL <+> 2 Type <+> 2 Location <+> 2 Wound Dressing Item <+> 2 Other Comments [facility] IntraOp Fire Risk Assessment Entry [...] Modified By: RADHA VALENCIA RN 11/16/18 07:20:01 [facility] IntraOp Fire Risk Assessment Audit 11/16/18 08:43:21 Ice Cream Dipper: SAIGEIZEL Modifier: ALTIZEL 1 <*> Fire Risk Assessment Verified 11/16/18 07:19:00 Date/Time [facility] IntraOp General Case Video News Editor 1 Case Information OR OR 14 [facility] Case Level 2 Room Verified Yes Wound Class I - Clean Specialty SN Cardio Thoracic Anesthesia Type General ASA Class 4 Diagnosis Preop Diagnosis CAD, AORTIC VALVE DISEASE, ASCENDING AORTIC ANEURSYM Postop Diagnosis SEE MD POST OP NOTE Last Modified By: RADHA VALENCIA RN 11/16/18 08:50:46 [facility] IntraOp Implant Log Entry 1 Entry 2 Type Implant (Synthetic) Tissue Implant (Biologic) Implant Log Implant Type Grafts, non-biological Tissue Implant Type Heart valve Implant [facility] PLAT VALVE AORT ROOT Identification [id number] [facility] [id number] Description Implant Quantity 1 1 Implant Site AORTA AORTA Implant Identification Model Number Implant [id number] Identification Serial Number Implant Identification Lot Number Implant Michel Ind:Maquet:Cv Medtronic:Card Surg:Tech Identification Director Pharmacovigilance Name: Implant [id number] Identification Catalog Number Implant Size Implant Has an Yes Yes Expiration Date Implant Expiration 08/23/23 05/20/22 Date Wasted Radioactive Material Time Implanted Tissue Implant Continue for Tissue Implant Documentation Tissue Identification Number Graft Prep Per Yes Director Pharmacovigilance Instructions: Tissue Preparation N/A Method: Reconstitution Solution: Reconstitution Solution Lot Number Reconstitution Solution Expiration Date: Thawing Solution Thawing Solution Lot Number Thawing Solution Expiration Date Preparation NACL Materials, Other Preparation [id number] Materials, Other Lot Number Preparation 06/22/22 Materials, Other Expiration Date Tissue MARLON, MELODY Prepared/Processed By Director Pharmacovigilance Yes Paperwork Completed Implant Type Comment Last Modified By: RADHA VALENCIA RN ALTIZER, LISA E, RN 11/16/18 09:42:38 11/16/18 09:42:38 [facility] IntraOp Intraoperative Assessment Entry 1 [...] Modified By: RADHA VALENCIA RN 11/16/18 08:25:54 [facility] IntraOp Intraoperative Equipment Entry 1 Equipment Intraop Monitoring Blood Pressure Non-Invasive BP Device Source Blood Pressure Arm, right upper Location Pulse Oximeter Hand, left Probe Site Antiembolic Devices Scopes Photo/Video Documentation Last Modified By: RADHA VALENCIA RN 11/16/18 08:51:22 [facility] IntraOp Medication Admin Entry 1 Entry 2 Entry 3 Medication/Irrigant papverine HCL 30mg/ml lidocaine 1% 50ml vial NS 0.9% 50ml injection 10ml - [id number] - [id number] - [id number] Combo Med List Time Administered Route of FLUSH MAMMARY LOCAL FLUSH Administration Dose Dose 150 8 30 Unit of Measure mg ml ml Volume Administered By JULIO CESAR CARVALHO MD-[facility] ERASMO LÓPEZ PA MEECE, PAUL, PA Procedure Irrigation Irrigant Volume In Irrigant Volume Out Last Modified By: RADHA VALENCIA RN ALTIZER, LISA E, RN ALTIZER, LISA E, RN 11/16/18 08:52:11 11/16/18 11:07:14 11/16/18 08:52:11 Entry 4 Entry 5 Medication/Irrigant Ancef 1Gm advantage KT TISSEEL VH SD vial - [id number] Combo Med List Time Administered Route of IRRIGATION TOPICAL Administration Dose Dose 1 10 Unit of Measure gram ml Volume Administered By JULIO CESAR CARVALHO MD-CAT JULIO CESAR CARVALHO MD-CAT Procedure Irrigation Irrigant Volume In Irrigant Volume Out Last Modified By: RADHA VALENCIA RN ALTIZER, LISA E, RN 11/16/18 08:52:11 11/16/18 09:49:07 [facility] IntraOp Medication Admin Audit 11/16/18 11:07:14 Ice Cream Dipper: ALTIZEL Modifier: ALTIZEL 2 <*> Medication/Irrigant lidocaine 1% 50ml vial - [id number] 2 <*> Administered By ALLA SORIANO RN 11/16/18 09:49:07 Ice Cream Dipper: ALTIZEL Modifier: ALTIZEL <+> 5 Medication/Irrigant <+> 5 Route of Administration <+> 5 Administered By <+> 5 Dose <+> 5 Unit of Measure [facility] IntraOp Patient Positioning Entry 1 [...] Modified By: RADHA VALENCIA RN 11/16/18 08:49:03 [facility] IntraOp Patient Positioning Audit 11/16/18 09:58:34 Ice Cream Dipper: ALTIZEL Modifier: ALTIZEL 1 <*> Procedure Aortic Aneurysm Ascending Repair, CABG w Aortic Valve [facility] IntraOp Sign In Entry 1 [...] Modified By: RADHA VALENCIA RN 11/16/18 07:19:47 [facility] IntraOp Sign Out Entry 1 [...] Modified By: RADHA VALENCIA RN 11/16/18 12:41:17 [facility] IntraOp Skin Prep Entry 1 Procedure Transesophageal Echocardiogram Prescribed Yes Pre-Surgical Prep Completed Prep Area Chin to TOES Intraop Prep Integumentary WDL Assessment WDL Patients Normal WDL Integumentary Variance(s) Prep Agents Chloraprep Prep by RADHA VALENCIA RN Skin Prep Comment Xander Soriano also prepped Hair Removal Last Modified By: RADHA VALENCIA RN 11/16/18 08:52:45 [facility] IntraOp Skin Prep Audit 11/16/18 09:58:34 Ice Cream Dipper: ALTIZEL Modifier: ALTIZEL <+> 1 Procedure [facility] IntraOp Surgical Procedures Entry 1 [...] RN 11/16/18 09:57:36 11/16/18 08:49:06 11/16/18 09:58:24 [facility] IntraOp Surgical Procedures Audit 11/16/18 12:41:26 Ice Cream Dipper: ALTIZEL Modifier: ALTIZEL <+> 1 Stop <+> 2 Stop <+> 3 Stop 11/16/18 10:51:43 Ice Cream Dipper: ALTIZEL Modifier: ALTIZEL 1 <*> Procedure Aortic Aneurysm Ascending Repair 11/16/18 10:17:14 Ice Cream Dipper: ALTIZEL Modifier: ALTIZEL <+> 3 Start 11/16/18 09:58:24 Ice Cream Dipper: ALTIZEL Modifier: ALTIZEL <+> 3 Procedure <+> 3 Primary Procedure <+> 3 Primary Surgeon <+> 3 Specialty <+> 3 Wound Class <+> 3 Anesthesia Type 11/16/18 09:57:36 Ice Cream Dipper: ALTIZEL Modifier: ALTIZEL 1 <*> Procedure Aortic Aneurysm Ascending Repair 1 <*> Additional Procedure Description (ASCENDING AORTIC ANEURYSM REPAIR, CABG, POSSIBLE AORTIC VALVE REPLACEMENT) [facility] IntraOp Temp Regulation Devices Entry 1 Entry 2 Temp Regulation Temperature Forced Air Warming Warm blankets Regulation Device device Temperature 400189 Regulation Device Serial/Unit Number Temperature Lower body Full body Regulation Site Temperature Device 43 DEG C Setting Temperature RADHA VALENCIA RN ALTIZER, LISA E, RN Regulation Device Applied by Temperature CATIA HUGGER TURNED ON Regulation Comment AFTER AORTIC CROSS CLAMP REMOVED Last Modified By: RADHA VALENCIA RN ALTIZER, LISA E, RN 11/16/18 08:53:25 11/16/18 08:53:25 [facility] IntraOP Time Out Entry 1 [...] Modified By: RADHA VALENCIA RN 11/16/18 09:58:34 [facility] IntraOP Time Out Audit 11/16/18 09:58:34 Ice Cream Dipper: EARNESTINE Modifier: ALTIZEL 1 <*> Procedure to be Performed Aortic Aneurysm Ascending Repair, CABG w Aortic Valve Case Comments <None> Finalized By: JODI PITT Document Signatures Signed By: RADHA VALENCIA RN 11/16/18 12:41 JODI PITT 11/17/18 10:03 Unfinalized History Date/Time Username Reason for Unfinalizing Freetext Reason for Unfinalizing 11/17/18 09:59 [email or web address] Correct Billing Electronically signed by Parveen [facility] Conversion Peer Tutor Cerner at 12/08/2022 12:09 PM CDT documented in this encounter Plan of Treatment Not on file documented as of this encounter Visit Diagnoses Not on filedocumented in this encounter
--- OUTSIDE RECORDS SUMMARY | 2025-05-09 13:10 | XMS_ITS | Encounter Summary ---
Author Organization [employer] ([place], [place], [place], [place]) Address [address] [place] [address] Care Team Providers Care Tape Fastener Machine Operator Name Role Phone Unavailable Primary Care Provider Unavailabl e Encounter Details Date Type Department Care Team (Late st Contact Info) Description 12/01/2018 Transcribed Document [facility] [place] Family Medicine [address] [place] [address] ProviderErika MD [address] [place] [address] Social History Tobacco Use Types [...] Jose MD - 12/01/2018 3:00 PM CDT [facility] [place] [address] VILLASENOR DOTTIE Pickering :1940 Visit Time:11/16/2018 Your Visit Summary Your Care Team Admitting Physician - JULIO CESAR CARVALHO MD-CAT Attending Physician - JULIO CESAR CARVALHO MD-YADIRA Primary Care Physician - DEMETRICE ARMIJO NP-FAM Referring Physician - DEMETRICE ARMIJO NP-FAM Your Diagnosis Acute blood loss anemia Aortic insufficiency, Aortic insufficiency CAD (coronary artery disease), [place] coronary artery, Coronary artery disease GI bleed [...] do next Instructions From Your Care Team [facility]-Stroke Unit RN report #[phone] DC Summary #[phone] You may shower. Make sure your back [...] IF you have a fever greater than [id number], call the surgeon. DO NOT drive for [...] Where: [address] [place] [address]- Business (1) Follow Up with JULIO CESAR CARVALHO When 12/15/2018 12:15 PM EDT Where: [address] [place] [address] Business (1) Follow Up with DEMETRICE ARMIJO When Within 1 week Comments When you are discharged from [facility] please call to make a 1 week hospital follow-up appointment. Where: [address] [place] [address]- Follow Up with JOHN BOWEN When Within 6 weeks Comments Patient should call for a follow up appointment with [facility]. Where: [address] [place] [address]- Business (1) Medications What How [...] contain harmful chemicals. FOR MORE INFORMATION ??? [place] [employer]: www.lung.org ??? [place] [employer]: www.cancer.org This information is not intended to replace advice given to you by your health care provider. Make sure you discuss any questions you have with your health care provider. Document Released: 09/17/2005 Document Revised: 12/01/2016 Document Reviewed: 01/30/2014 [employer] Interactive Patient Education ?? 2017 [employer]. How to Take Your Blood Pressure HOW [...] 02/14/2004 Document Revised: 02/27/2017 Document Reviewed: 01/13/2017 [employer] Interactive Patient Education ?? 2017 [employer]. Coronary Artery Bypass Grafting, Care After [...] 02/27/2006 Document Revised: 08/31/2015 Document Reviewed: 01/17/2014 [employer] Interactive Patient Education ?? 2017 [employer] Bleeding Precautions When on Anticoagulant Therapy [...] can be dangerous for you. ??? Many pizx-vmb-meuzrbx medicines for pain, colds, or stomach problems [...] provider. Document Released: 07/21/2016 Document Reviewed: 07/21/2016 [employer] Interactive Patient Education ?? 2017 [employer] Atrial Fibrillation Introduction Atrial fibrillation is [...] Follow these instructions at home: ??? Take pstd-afz-xzjeiyv and prescription medicines only as told by [...] 09/17/2005 Document Revised: 01/15/2017 Document Reviewed: 02/10/2014 [employer] Interactive Patient Education ?? 2017 [employer]. misoprostol (reji ramos) [facility] What is the most important information [...] disease; or ?? if you are dehydrated. [facility] category X. Misoprostol can cause defects, premature [...] may report side effects to FDA at 2-894-VQT-0800. What other drugs will affect misoprostol? Other drugs may interact with misoprostol, including prescription and awfr-ran-vdsdtkf medicines, vitamins, and herbal products. Tell each [...] to ensure that the information provided by [employer]. ('[employer]') is accurate, up-to-date, and complete, but no guarantee is made to that effect. Drug information contained herein may be time sensitive. Liquid [employer] information has been compiled for use by healthcare practitioners and consumers in the [place] and therefore [employer] does not warrant that uses outside of the [place] are appropriate, unless specifically indicated otherwise. [employer] drug information does not endorse drugs, diagnose patients or recommend therapy. [employer] drug information is an informational resource designed [...] effective or appropriate for any given patient. [facility] does not assume any responsibility for any aspect of healthcare administered with the aid of information [facility] provides. The information contained herein is not intended to cover all possible uses, directions, precautions, warnings, drug interactions, allergic reactions, or adverse effects. If you have questions about the drugs you are taking, check with your doctor, nurse or pharmacist. Copyright 5388-8834 [facility]. Version: 8.01. Revision Date: 03/02/2014.sucralfate [...] may report side effects to FDA at 8-288-UAX-6882. What other drugs will affect sucralfate? Sucralfate can make it harder for your body to absorb other medications you take by mouth. Avoid taking any other medications within 2 hours before or after you take sucralfate. Other drugs may interact with sucralfate, including prescription and qgju-drn-dizjtyq medicines, vitamins, and herbal products. Tell each [...] to ensure that the information provided by [employer]. ('[employer]') is accurate, up-to-date, and complete, but no guarantee is made to that effect. Drug information contained herein may be time sensitive. [employer] information has been compiled for use by healthcare practitioners and consumers in the [place] and therefore [employer] does not warrant that uses outside of the [place] are appropriate, unless specifically indicated otherwise. [employer] drug information does not endorse drugs, diagnose patients or recommend therapy. [employer] drug information is an informational resource designed [...] effective or appropriate for any given patient. [employer] does not assume any responsibility for any aspect of healthcare administered with the aid of information [employer] provides. The information contained herein is not intended to cover all possible uses, directions, precautions, warnings, drug interactions, allergic reactions, or adverse effects. If you have questions about the drugs you are taking, check with your doctor, nurse or pharmacist. Copyright 7085-9987 [employer]. Version: 8.01. Revision Date: 01/03/2013.sucralfate (oral) (angelica [...] may report side effects to FDA at 4-310-RCZ-0495. What other drugs will affect sucralfate? Sucralfate can make it harder for your body to absorb other medications you take by mouth. Avoid taking any other medications within 2 hours before or after you take sucralfate. Other drugs may interact with sucralfate, including prescription and cqiv-kjb-clbemke medicines, vitamins, and herbal products. Tell each [...] to ensure that the information provided by [employer]. ('[employer]') is accurate, up-to-date, and complete, but no guarantee is made to that effect. Drug information contained herein may be time sensitive. [employer] information has been compiled for use by healthcare practitioners and consumers in the [place] and therefore [employer] does not warrant that uses outside of the [place] are appropriate, unless specifically indicated otherwise. [employer] drug information does not endorse drugs, diagnose patients or recommend therapy. [employer] drug information is an informational resource designed [...] effective or appropriate for any given patient. [facility] does not assume any responsibility for any aspect of healthcare administered with the aid of information [facility] provides. The information contained herein is not intended to cover all possible uses, directions, precautions, warnings, drug interactions, allergic reactions, or adverse effects. If you have questions about the drugs you are taking, check with your doctor, nurse or pharmacist. Copyright 1115-2548 [employer]. Version: 8.01. Revision Date: 01/03/2013. Emergency Awareness [...] Assistance with quitting is available by contacting 7-831-HCHI-NOW. This is a free resource providing counseling, [...]
--- OUTSIDE RECORDS SUMMARY | 2025-05-09 13:10 | XMS_ITS | Encounter Summary ---
Author Organization [employer] ([place], [place], [place], [place]) Address [address] [place] [address] Care Team Providers Care Rolling Mill Operator Helper Name Role Phone Unavailable Primary Care Provider Unavailabl e Encounter Details Date Type Department Care Team (Late st Contact Info) Description 11/16/2018 Transcribed Document [facility] [place] [address] [place] [address] ProviderErika MD [address] [place] [address] Social History Tobacco Use Types [...] On: 11/16/2018 12:27 EDT by Lorin Pratt, [facility] Phone Call for Consults Consult Phone Call/Page Attempt : Other: Valve: no call Lorin Pratt [facility] - 11/16/2018 13:34 EDT Electronically signed by Christina Saini Conversion Senior Medical Billing Specialist Cerner at 12/08/2022 12:36 PM CDT documented in this encounter Plan of Treatment Not on file documented as of this encounter Visit Diagnoses Not on filedocumented in this encounter
--- OUTSIDE RECORDS SUMMARY | 2025-05-09 13:10 | XMS_ITS | Encounter Summary ---
Author Organization [employer] ([place], [place], [place], [place]) Address [address] [place] [address] Care Team Providers Care Endband Sizer Name Role Phone Unavailable Primary Care Provider Unavailabl e Encounter Details Date Type Department Care Team (Late st Contact Info) Description 11/26/2018 Transcribed Document [facility] Family Medicine [address] [place] [address] ProviderErika MD [address] [place] [address] Social History Tobacco Use Types [...] (not seen on 11/25/18) followed up with [facility] today regarding possible admission - plan is [...] Care Management Note Report : LUCIE, ODALYS, Rn-Hand Mica Plate Layer - 11/24/18 13:22:19 11/24/18 Andra from [facility] called to let me know they started a precert on this pt. CF ODALYS FAULKNER, Rn-Hand Mica Plate Layer - 11/22/18 13:56:32 11/22/18 Pt has had a cva. Spoke to his Connie and son Sumeet at the bedside. Pt is lfacid on the left side. Discussed the need for STR and they decided on [facility]. Sent pt info via [employer] to [facility]. CF Documentation Status Complete : Yes ANGELA NAIR, State Pilot - 11/26/2018 11:16 EDT Electronically signed by Parveen [facility] Conversion Shooter Helper Cerner at 12/08/2022 12:12 PM CDT documented in this encounter Plan of Treatment Not on file documented as of this encounter Visit Diagnoses Not on filedocumented in this encounter
--- OUTSIDE RECORDS SUMMARY | 2025-05-09 13:10 | XMS_ITS | Encounter Summary ---
Author Organization [employer] ([place], [place], [place], [place]) Address [address] [place] [address] Care Team Providers Care Diamond Selector Name Role Phone Unavailable Primary Care Provider Unavailabl e Encounter Details Date Type Department Care Team (Late st Contact Info) Description 11/21/2018 Transcribed Document [facility] [place] [address] [place] [address] ProviderErika MD [address] [place] [address] Social History Tobacco Use Types [...]
--- OUTSIDE RECORDS SUMMARY | 2025-05-09 13:10 | XMS_ITS | Encounter Summary ---
Author Organization [employer] ([place], [place], [place], [place]) Address [address] [place] [address] Care Team Providers Care Sorting Machine Operator Name Role Phone Unavailable Primary Care Provider Unavailabl e Encounter Details Date Type Department Care Team (Late st Contact Info) Description 11/16/2018 Transcribed Document [facility] [place] Family Medicine [address] [place] [address] ProviderErika MD [address] [place] [id number] Social History Tobacco Use Types Packs/Day Years [...] Medical. Performed by: JULIO CESAR CARVALHO MD-CAT. Talent Associate: ERASMO LÓPEZ PA. Notes: Procedure: Resection and [...]
--- OUTSIDE RECORDS SUMMARY | 2025-05-09 13:10 | XMS_ITS | Encounter Summary ---
Author Organization [employer] ([place], [place], [place], [place]) Address [address] [place] [address] Care Team Providers Care Twist Maker Name Role Phone Unavailable Primary Care Provider Unavailabl e Encounter Details Date Type Department Care Team (Late st Contact Info) Description 11/20/2018 Transcribed Document [facility] Family Medicine [address] [place] [address] ProviderErika MD [address] [place] [address] Social History Tobacco Use Types Packs/Day Years Used Date Smoking Tobacco: Never Assessed Sex and Gender Information Value Date Recorded Sex Assigned at Not on file Legal Sex Male 5:03 PM CDT Gender Identity Not on file Sexual Orientation Not on file documented as of this encounter Miscellaneous Notes * Cerner Conversion Note - Erika ProviderMD - 11/20/2018 9:36 AM CDT INTEGRATION SOFTWARE ENGINEER Note Entered On: 11/24/2018 13:28 EDT Performed On: 11/24/2018 13:19 EDT by MAMTA SOLO, INTEGRATION SOFTWARE ENGINEER Dysphagia Exercise Technique Dysphagia Therapy/Treatment Type #1 [...] Technique PO Trial #1 Consistency Trialed : [place] Oral Symptoms : None observed Pharyngeal Signs [...] 13:19 EDT Swallow Plan/Goals Swallow LTG Grid INTEGRATION SOFTWARE ENGINEER Naval Architect Specialist Goal #1 INTEGRATION SOFTWARE ENGINEER Naval Architect Specialist Goal #2 Swallow LTG : Establish safe [...] Date Met : 11/22/2018 EDT MAMTA SOLO, [facility] - 11/24/2018 13:19 EDT MAMTA SOLO INTEGRATION SOFTWARE ENGINEER - 11/24/2018 13:19 EDT MAMTA SOLO INTEGRATION SOFTWARE ENGINEER - 11/24/2018 13:19 EDT MAMTA SOLO [facility] - 11/24/2018 13:19 EDT LTG Lang/Comm/Cog LTG INTEGRATION SOFTWARE ENGINEER [place] Goal 1 Naval Architect Specialist Goal 2 Goals : Improved spoken language expression at the time of discharge Improved auditory/spoken language comprehension at the time of discharge Status : Initial Initial MAMTA SOLO [facility] - 11/24/2018 13:19 EDT MAMTA SOLO SLP - 11/24/2018 13:19 EDT STG Lang_Comm_Cog Motor Speech STG Grid Goal #1 Activity : Improve intelligibility of speech Status : Initial MAMTA SOLO [facility] - 11/24/2018 13:19 EDT Auditory Comprehension Grid Goal #1 Goal #2 Activity : Follow directions, 3 step commands simple Comprehend paragraph complex MAMTA SOLO [facility] - 11/24/2018 13:19 EDT MAMTA SOLO [facility] - 11/24/2018 13:19 EDT Verbal Expression STG Grid Goal #1 Activity : Generate items in a category MAMTA SOLO [facility] - 11/24/2018 13:19 EDT Reading Comprehension STG Grid Goal #1 Activity : Visual perception deficits MAMTA SOLO [facility] - 11/24/2018 13:19 EDT Attention STG Grid Goal #1 Activity : Other: Probe Status : Goal met Date Met : 11/24/2018 TGT MAMTA SOLO [facility] - 11/24/2018 13:19 EDT Memory STG Grid Goal #1 Goal #2 Goal #3 Activity : Other: Probe Improve short term functional delayed Improve short term working memory Status : Goal met Initial Initial Date Met : 11/24/2018 TGT MAMTA SOLO [facility] - 11/24/2018 13:19 EDT MAMTA SOLO [facility] - 11/24/2018 13:19 EDT MAMTA SOLO [facility] - 11/24/2018 13:19 EDT Problem [...] SOLO SLP - 11/24/2018 13:19 EDT Subjective/Assessment/Plan INTEGRATION SOFTWARE ENGINEER Patient Concern : Pt was awake and lying in bed. Agreeable to tx. INTEGRATION SOFTWARE ENGINEER Therapy/Treatment Asmt Cmnt : Pt seen for speech and dysphagia tx. Great participation in tx. Requires continuous cues for accurate completion of timing exercises. No overt pharyngeal patterns with nectar liquids. Further cogntive probe completed. Pt presents with a moderate cognitive deficits characterized by impairments in memory, orientation, and problem solving. POC updated. INTEGRATION SOFTWARE ENGINEER Plan : Continue per POC. Repeat swallow study Thursday. MAMTA SOLO SLP - 11/24/2018 13:19 EDT Education Barriers To Learning : Cognitive deficit Individuals Taught : Patient Readiness to Learn : Cooperative Readiness to Learn : Explanation MAMTA SOLO SLP - 11/24/2018 13:19 EDT INTEGRATION SOFTWARE ENGINEER Education Assessment Grid 1 Evaluation Results : Verbalizes understanding MAMTA SOLO SLP - 11/24/2018 13:19 EDT INTEGRATION SOFTWARE ENGINEER Education Assessment Grid 2 Treatment Plan : Verbalizes understanding MAMTA SOLO SLP - 11/24/2018 13:[address] [facility] INTEGRATION SOFTWARE ENGINEER Charges Speech Therapy : 1 Treatment-Swallowing : 1 MAMTA SOLO SLP - 11/24/2018 13:19 EDT Anticipated Discharge Needs, INTEGRATION SOFTWARE ENGINEER Anticipated Discharge to OT : Rehab, high intensity Recommend Continued Therapy at Discharge : Yes MAMTA SOLO SLP - 11/24/2018 13:19 EDT documented in this encounter Plan of Treatment Not on file documented as of this encounter Visit Diagnoses Not on filedocumented in this encounter
--- OUTSIDE RECORDS SUMMARY | 2025-05-09 13:10 | XMS_ITS | Encounter Summary ---
Author Organization [employer] ([place], [place], [place], [place]) Address [address] [place] [address] Care Team Providers Care Hazmat Tanker Driver Name Role Phone Unavailable Primary Care Provider Unavailabl e Encounter Details Date Type Department Care Team (Late st Contact Info) Description 11/16/2018 Transcribed Document [facility] [place] Family Medicine [address] [place] [address] ProviderErika MD [address] [place] [address] Social History Tobacco Use Types [...]
--- OUTSIDE RECORDS SUMMARY | 2025-05-09 13:10 | XMS_ITS | Encounter Summary ---
Author Organization [employer] ([place], [place], [place], [place]) Address [address] [place] [address] Care Team Providers Care Industrial Property Appraiser Name Role Phone Unavailable Primary Care Provider Unavailabl e Encounter Details Date Type Department Care Team (Late st Contact Info) Description 11/05/2018 Transcribed Document [facility] [place] [address] [place] [address] ProviderErika MD [address] [place] [address] Social History Tobacco Use [...] Source : Stated Height Entry Format : Williams Height, Feet : 6 ft(Converted to: 183 cm, 72 Inch) Height, Inches : 1 Inch(Converted to: 0 ft 1 Inch, 2.54 cm) Clinical Height : 185.42 cm Weight Source : Standing scale Weight Entry Format : Williams Clinical Dosing Weight : 77.27 kg Weight, Pounds : 170 lb Body Surface Area (BSA) : 2.01 m2 Body Mass Index : 22.5 kg/m2 [place] Body Weight : 79 kg SRIRAM PATEL [...] Any Spiritual/Cultural Needs or Requests : No Protestant Preference : Latter-Day SRIRAM PATEL RN - 11/05/2018 8:49 EDT [...] Obtained From : Patient Primary Language : Argentine Preferred Communication Mode : Verbal Communication Barrier [...] Scale Risk Level : 0-24 Low Risk [place] Fall Interventions : Adequate lighting, Bed in [...] Oriented [place] Eye Opening Response : Spontaneous [place] Coma Score : 15 SRIRAM PATEL RN - 11/05/2018 8:49 EDT documented in this encounter Plan of Treatment Not on file documented as of this encounter Visit Diagnoses Not on filedocumented in this encounter
--- OUTSIDE RECORDS SUMMARY | 2025-05-09 13:10 | XMS_ITS | Encounter Summary ---
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 Conversion Manager Background Cerner at 12/08/2022 12:16 PM CDT documented in this encounter Plan of Treatment Not on file documented as of this encounter Visit Diagnoses Not on filedocumented in this encounter
--- OUTSIDE RECORDS SUMMARY | 2025-05-09 13:10 | XMS_ITS | Encounter Summary ---
Author Organization [employer] ([place], [place], [place], [place]) Address [address] [place] [address] Care Team Providers Care Piggery Worker Name Role Phone Unavailable Primary Care Provider Unavailabl e Encounter Details Date Type Department Care Team (Late st Contact Info) Description 11/28/2018 Transcribed Document [facility] [place] Family Medicine [address] [place] [address] ProviderErika MD [address] [place] [address] Social History Tobacco Use Types [...]
--- OUTSIDE RECORDS SUMMARY | 2025-05-09 13:10 | XMS_ITS | Encounter Summary ---
Author Organization [employer] ([place], [place], [place], [place]) Address [address] [place] [address] Care Team Providers Care Pension Fund Manager Name Role Phone Unavailable Primary Care Provider Unavailabl e Encounter Details Date Type Department Care Team (Late st Contact Info) Description 11/05/2018 Transcribed Document [facility] [place] Family Medicine [address] [place] [address] ProviderErika MD [address] [place] [address] Social History Tobacco Use Types [...] you are awake and alert. ??? Take saag-wrx-kljvyui and prescription medicines only as told by [...] 05/31/2014 Document Revised: 01/12/2017 Document Reviewed: 11/29/2016 [employer] Interactive Patient Education ? 2017 [employer] Pulmonary Medicine Radial Site Care Introduction [...] 01/11/2014 Elsevier Interactive Patient Education ? 2017 [employer] Electronically signed by Christina Saini Conversion Protective Services Case Worker Felipe at 12/08/2022 12:35 PM CDT documented in this encounter Plan of Treatment Not on file documented as of this encounter Visit Diagnoses Not on filedocumented in this encounter
--- OUTSIDE RECORDS SUMMARY | 2025-05-09 13:10 | XMS_ITS | Encounter Summary ---
Author Organization [employer] ([place], [place], [place], [place]) Address [address] [place] [address] Care Team Providers Care Dairy Farm Supervisor Name Role Phone Unavailable Primary Care Provider Unavailabl e Encounter Details Date Type Department Care Team (Late st Contact Info) Description 11/21/2018 Transcribed Document [facility] [place] Family Medicine [address] [place] [address] ProviderErika MD [address] [place] [address] Social History Tobacco Use [...] 11/21/2018 9:37 EDT by José Miguel Tran, [facility] Phone Call for Consults Consult Phone Call/Page Attempt : Other: Nurse spoke to Dr. Amaro. José Miguel Tran [facility] - 11/21/2018 9:40 EDT Electronically signed by Christina Saini Conversion Technical Services Librarian Felipe at 12/08/2022 12:25 PM CDT documented in this encounter Plan of Treatment Not on file documented as of this encounter Visit Diagnoses Not on filedocumented in this encounter
--- OUTSIDE RECORDS SUMMARY | 2025-05-09 13:10 | XMS_ITS | Encounter Summary ---
Author Organization [employer] ([place], [place], [place], [place]) Address [address] [place] [address] Care Team Providers Care Wood Gouger Name Role Phone Unavailable Primary Care Provider Unavailabl e Encounter Details Date Type Department Care Team (Late st Contact Info) Description 11/16/2018 Transcribed Document [facility] [place] [address] [place] [address] ProviderErika MD [address] [place] [address] Social History Tobacco Use Types [...] anterior descending). SURGEON: Porfirio Gaxiola IV, MD LIBERAL ARTS DEAN: Saud Oliver (AMANDA) ANESTHESIA: General orotracheal. CLINICAL [...] Gaxiola IV, M.D. Electronically signed by Parveen [facility] Conversion Local Owner Operator Truck Driver Cerner at 12/08/2022 12:25 PM CDT documented in this encounter Plan of Treatment Not on file documented as of this encounter Visit Diagnoses Not on filedocumented in this encounter
--- OUTSIDE RECORDS SUMMARY | 2025-05-09 13:10 | XMS_ITS | Encounter Summary ---
Author Organization [employer] ([place], [place], [place], [place]) Address [address] [place] [address] Care Team Providers Care Brake Holder Name Role Phone Unavailable Primary Care Provider Unavailabl e Encounter Details Date Type Department Care Team (Late st Contact Info) Description 11/27/2018 Transcribed Document [facility] [place] [address] [place] [address] ProviderErika MD [address] [place], [place] [id number] Social History Tobacco Use Types Packs/Day Years [...] 1940 Associated Diagnoses: CAD (coronary artery disease), [place] coronary artery; Thrombocytopenia; Coronary artery disease; HTN [...] swelling - improved today. Integumentary: Warm, Dry, [place], incision is C/D/I. Neurologic: Alert, Oriented, left [...] (Current Encounter/Past 24 Hours) PT 14.8 Second(s) AR 11/27/2018 07:36 PTT 55.8 Second(s) AR 11/26/2018 11:12 INR 1.4 AR 11/27/2018 07:36 . Impression and Plan Plan: [...] time of discharge- has sent information to [facility] -Transfer to [facility] 11/24/18 -POD#8 -Awaiting transfer to [facility] -Awaiting response from [facility] 11/25/18 -left upper extremity venous doppler - doppler this am positive for LUE DVT - will start coumadin and heparin bridge -awaiting [facility] 11/26/18 -Heparin drip and coumadin for LUE DVT Left arm swelling improved today INR 1.1 today, INR goal 2-3 Possibly transfer to [facility] this weekend 11/27/18: Left arm swelling continues to improve Continues on Coumadin and heparin bridge INR: 1.4 (1.1 yesterday) goal: 2 to 3 [facility] soon,? Tomorrow EF 55-60% per echo 11/16/18 DVT Prophylaxis: SCDs Diagnosis CAD (coronary artery disease), [place] coronary artery - Admitting, Medical. Thrombocytopenia - [...]
--- OUTSIDE RECORDS SUMMARY | 2025-05-09 13:10 | XMS_ITS | Encounter Summary ---
Author Organization [employer] ([place], [place], [place], [place]) Address [address] [place] [address] Care Team Providers Care Release Manager Name Role Phone Unavailable Primary Care Provider Unavailabl e Encounter Details Date Type Department Care Team (Late st Contact Info) Description 11/28/2018 Transcribed Document [facility] [place] [address] [place] [address] ProviderErika MD [address] [place], [place] [id number] Social History Tobacco Use Types Packs/Day Years [...]
--- OUTSIDE RECORDS SUMMARY | 2025-05-09 13:10 | XMS_ITS | Encounter Summary ---
Author Organization [employer] ([place], [place], [place], [place]) Address [address] [place] [address] Care Team Providers Care Chairman Of The Board Name Role Phone Unavailable Primary Care Provider Unavailabl e Encounter Details Date Type Department Care Team (Late st Contact Info) Description 12/01/[address] [facility] [place] [address] [place] [address] ProviderErika MD [address] [place] [address] Social History Tobacco Use Types [...] and arrangements, chart reviewed, received word from [facility] that bed is available for patient today, on their stroke unit. Patient to be transported via [facility], p/u set for 3pm. RN report to be called to [phone] and discharge summary to be faxed to [phone]. Pt, RN and family aware and in agreement with plan. ANGELA NAIR Social Worker - 12/01/2018 11:35 EDT Care Management Note Report : SUZANNA HAINES Social Worker - 11/30/18 15:30:18 Covering today for D/c planning, pt back on 3E room 330. Discussed w/ Carmen from [facility] who is still following pt. She has submitted pt info to MD for approval. Pt had EGD 11/29 which revealed duodenal ulcer w/ clot but no bleeding, no intervention needed, Off heparin gtt, watching pt's INR and H & H. Speech signed off today, pt is cleared for thins. Met w/ pt and family and informed them of [facility] situation. Also discussed outpt Cardiac Rehab. They prefer to go to [facility]. Phoned them and left msg, sent pt info to them. CM will cont to follow. ANGELA NAIR Group Account Director - 11/26/18 11:20:05 Continue to follow for discharge needs and arrangements, chart reviewed, admission day 10, transfer from [facility], on room air, WBC=11.2, INR=1.1, PTT=55.8, on IV Heparin gtt due to DVT in left arm, MBS completed today now on regular cardiac diet with thin liquids, PT/OT following (not seen on 11/25/18) followed up with [facility] today regarding possible admission - plan is to submit for approval today after being seen by therapy. Awaiting ANGELA NAIR Group Account Director - 11/26/18 11:24:04 Continue to follow for discharge needs and arrangements, chart reviewed, admission day 10, transfer from [facility], on room air, WBC=11.2, INR=1.1, PTT=55.8, on IV Heparin gtt due to DVT in left arm, MBS completed today now on regular cardiac diet with thin liquids, PT/OT following (not seen on 11/25/18) followed up with [facility] today regarding possible admission - plan is to submit for approval today after being seen by therapy, for their MD approval. Once accepting MD in place, bed in place and patient is medically stable will be able to transfer due to patient not requiring a insurance prior auth. CM will continue to follow. ODALYS FAULKNER, Rn-Mems Device Scientist - 11/24/18 13:22:19 11/24/18 Andra from [facility] called to let me know they started a precert on this pt. CF ODALYS FAULKNER Rn-Mems Device Scientist - 11/22/18 13:56:32 11/22/18 Pt has had a cva. Spoke to his Connie and son Sumeet at the bedside. Pt is lfacid on the left side. Discussed the need for STR and they decided on [facility]. Sent pt info via [employer] to [facility]. CF Documentation Status Complete : Yes ANGELA NAIR Social Worker - 12/01/2018 11:24 EDT Discharge Planning Details Home Caregiver Name/Relationship : Connie King [phone] spouse Discharge Placement Needs : Rehabilitation unit/facility [...] Yes Patient/Family Notified : Connie King Spouse [phone] ANGELA NAIR Social Worker - 12/01/2018 11:35 EDT Final Discharge Disposition Note-CM Discharge To Care Management : IRF -Inpatient Rehabilitation Facility-62 Name of Receiving Facility/Provider-CM : [facility] Stroke unit ANGELA NAIR Social Worker - 12/01/2018 11:35 EDT documented in this encounter Plan of Treatment Not on file documented as of this encounter Visit Diagnoses Not on filedocumented in this encounter
--- OUTSIDE RECORDS SUMMARY | 2025-05-09 13:10 | XMS_ITS | Encounter Summary ---
Author Organization [employer] ([place], [place], [place], [place]) Address [address] [place] [address] Care Team Providers Care Wind Technician Name Role Phone Unavailable Primary Care Provider Unavailabl e Encounter Details Date Type Department Care Team (Late st Contact Info) Description 11/20/2018 Transcribed Document [facility] [place] [address] [place] [address] ProviderErika MD [address] [place] [address] Social History Tobacco Use Types [...] TORREY ZUNIGA SLP General Information Visit Type, CRANKSHAFT STRAIGHTENER : Initial evaluation Patient Orders : CRANKSHAFT STRAIGHTENER Fxnl Limitation Documentation x 1 -111 Start: 11/20/18 8:39:00 EDT - SYSTEM, SYSTEM CRANKSHAFT STRAIGHTENER Bedside Swallow Evaluation - Start: 11/20/18 8:38:00 EDT, Routine, For Swallow Eval and Treat -111 MICHAEL RODRIGUEZ MD Ordering Provider : MICHAEL RODRIGUEZ MD Admission Date : Admission Date/Time: 11/16/18 06:45:00 Personal Devices : Personal Devices No Devices Recorded Assistive Devices : Assistive Devices No Devices Recorded Active Diagnoses : 11/17/2018 00:00 Atherosclerotic heart disease of [place] coronary artery without angina pectoris 11/17/2018 00:00 Essential (primary) hypertension 11/17/2018 00:00 Hypothyroidism, unspecified 11/17/2018 00:00 Nonrheumatic aortic (valve) insufficiency 11/17/2018 00:00 Restless legs syndrome 11/17/2018 00:00 Thoracic aortic aneurysm, without rupture 11/17/2018 00:00 Thrombocytopenia, unspecified 11/16/2018 00:00 Atherosclerotic heart disease of [place] coronary artery without angina pectoris 11/16/2018 00:00 Nonrheumatic aortic (valve) insufficiency 11/16/2018 00:00 Thoracic aortic aneurysm, without rupture Therapy Diagnosis, CRANKSHAFT STRAIGHTENER : overt signs and symptoms of aspiration at bedside Previous Speech/Language Evaluations : N/A Previous Swallow Precautions : N/A Previous Cognitive Evaluations : N/A Diet/Intake Prior to Current Admission : Regular/thin Diet/Intake During Current Admission : NPO Intubation Comment, CRANKSHAFT STRAIGHTENER : 11/16-11/17 Vital Signs RTF : Vitals [...] : Nasal cannula 3 L/min TORREY ZUNIGA CRANKSHAFT STRAIGHTENER - 11/20/2018 9:21 EDT General Status Patient Received Status, CRANKSHAFT STRAIGHTENER : Long sitting in bed Patient Left Status, CRANKSHAFT STRAIGHTENER : Long sitting in bed TORREY ZUNIGA [...] Hoarse, Other: Weak Resonance Types : Appropriate CRANKSHAFT STRAIGHTENER Cough : Weak Facial Appearance: : Symmetrical [...] noted with thin via straw and puree. CRANKSHAFT STRAIGHTENER unable to determine safe diet at bedside, recommend FEES to further assess swallow function. Continue NPO with alternate means of nutrition and meds until FEES. CRANKSHAFT STRAIGHTENER discussed results and recs with patient and family. TORREY ZUNIGA SLP - 11/20/2018 9:26 EDT Impressions, BS Swallow : Signs/Symptoms of pharyngeal dysphagia Swallowing Outcome Measures : Functional Oral Intake Scale (FOIS) Functional Oral Intake Scale (FOIS) : Level I TORREY ZUNIGA CRANKSHAFT STRAIGHTENER - 11/20/2018 9:21 EDT Swallow Recommendations Recommended Diet Type, SwRec : Non-oral feeding, NPO Swallow Position, SwRec : Upright 90 degrees Recommended Med Present, SwRec : Non-oral Recommended Exam, Sw Rec : FEES Repeat Swallow Exam Timeframe : 1-3 days TORREY ZUNIGA SLP - 11/20/2018 9:26 EDT Therapy Indication Assessment CRANKSHAFT STRAIGHTENER Indicated : Yes CRANKSHAFT STRAIGHTENER Problem List : Impaired, Swallowing TORREY ZUNIGA SLP - 11/20/2018 9:26 EDT Swallow Plan/Goals Treatment Frequency, CRANKSHAFT STRAIGHTENER : 4 times per wk Treatment Duration, CRANKSHAFT STRAIGHTENER : Two weeks TORREY ZUNIGA SLP - 11/20/2018 9:26 EDT Swallow LTG Grid CRANKSHAFT STRAIGHTENER Spotter Goal #1 Swallow LTG : Establish safe [...] TORREY ZUNIGA SLP - 11/20/2018 9:26 EDT CRANKSHAFT STRAIGHTENER Education Assessment Grid 1 Diet Recommendation : Verbalizes understanding Dysphagia : Verbalizes understanding Non-Oral Nutrition : Verbalizes understanding NPO : Verbalizes understanding TORREY ZUNIGA SLP - 11/20/2018 9:26 EDT CRANKSHAFT STRAIGHTENER Education Assessment Grid 2 Treatment Plan : Verbalizes understanding TORREY ZUNIGA SLP - 11/20/2018 9:[address] [facility] CRANKSHAFT STRAIGHTENER Charges Evaluation Swallowing Function : 1 TORREY ZUNIGA SLP - 11/20/2018 9:26 EDT Functional Limitation Reporting, CRANKSHAFT STRAIGHTENER Functional Limitation Visit Type, CRANKSHAFT STRAIGHTENER : Initial evaluation Severity Determination Method, CRANKSHAFT STRAIGHTENER : Clinical Judgment, Swallowing Swallow G8996 - Current Mod, CRANKSHAFT STRAIGHTENER : 80 - 99% impaired, limited or restricted (CM) Swallow G8997 - Proj Goal Mod, CRANKSHAFT STRAIGHTENER : 1 - 19% impaired, limited or restricted (CI) TORREY ZUNIGA SLP - 11/20/2018 9:26 EDT Electronically signed by Parveen [facility] Conversion Admissions Director Cerner at 12/08/2022 12:30 PM CDT documented in this encounter Plan of Treatment Not on file documented as of this encounter Visit Diagnoses Not on filedocumented in this encounter
--- OUTSIDE RECORDS SUMMARY | 2025-05-09 13:10 | XMS_ITS | Encounter Summary ---
Author Organization [employer] ([place], [place], [place], [place]) Address [address] [place] [address] Care Team Providers Care Corporate Learning Consultant Name Role Phone Unavailable Primary Care Provider Unavailabl e Encounter Details Date Type Department Care Team (Late st Contact Info) Description 11/19/2018 Transcribed Document [facility] Cardiology [address] [place] [address] Lc Armendariz MD [address] [facility] [address] [place] [address] Social History Tobacco Use Types [...] mg, Oral, At Bedtime saliva substitutes: 1 [place], Buccal, Q2H, PRN: Other (See Comment) sodium [...] of motion, Normal strength. Integumentary: Warm, Dry, [place]. Neurologic: Alert, Oriented. Psychiatric: Cooperative, Appropriate mood & affect. Results Review NOV 19 04:08 138 105 21 / H 184 4.0 28 0.70 \ NOV 19 04:08 \ L 10.0 / H 15.0 L 101 / L 30.3 \ Radiology Results (Last 48 hours) [id number] -- 11/16/2018 06:45 CR Chest 1 Vw [...]
--- OUTSIDE RECORDS SUMMARY | 2025-05-09 13:10 | XMS_ITS | Encounter Summary ---
Author Organization [employer] ([place], [place], [place], [place]) Address [address] [place] [address] Care Team Providers Care Crusher Screen Repairer Name Role Phone Unavailable Primary Care Provider Unavailabl e Encounter Details Date Type Department Care Team (Late st Contact Info) Description 11/16/2018 Transcribed Document [facility] [place] Medicine [address] [place] [address] ProviderErika MD [address] [place] [address] Social History Tobacco Use Types [...] form. Electronically signed by Christina Saini Conversion Wet Process Assistant Head Miller Cerner at 12/08/2022 12:14 PM CDT documented in this encounter Plan of Treatment Not on file documented as of this encounter Visit Diagnoses Not on filedocumented in this encounter
[2025-05-09 13:19] VITALS: BP 180/88; PULSE 81; RESP 18; TEMP 36.7; O2SAT 96
[2025-05-09] MEDS: ERTAPENEM SODIUM 1 GM VIAL IM (13:19)
== END 2025-05-09 13:25 | disposition home or self-care (01) ==
LOC: INF 13:04
PROVIDERS: PCP Internal Medicine; Visit Provider Internal Medicine
DX: N30.01 Acute cystitis with hematuria (principal)
CPT/HCPCS: 96372; J1335

== ENCOUNTER 2025-05-10 12:48 | Outpatient (CLI) | payer MEDICARE, SELFPAY ==
--- OUTSIDE RECORDS SUMMARY | 2025-05-10 12:51 | XMS_ITS | Encounter Summary ---
Author Organization [employer] ([place], [place], [place], [place]) Address [address] [place] [address] Care Team Providers Care Respiratory Medicine Physician Name Role Phone Unavailable Primary Care Provider Unavailabl e Encounter Details Date Type Department Care Team (Late st Contact Info) Description 11/29/2018 Transcribed Document [facility] Family Medicine [address] [place] [address] ProviderErika MD [address] [place] [address] Social History Tobacco Use Types [...] EDT Performed On: 11/29/2018 5:00 EDT by CHALRES LIAO RN Chart Check Chart Reviewed Date and Time : 11/29/2018 7:19 EDT Powerplans Initiated/Discontinued as Appropriate : Not applicable CHARLES LIAO RN - 11/29/2018 7:19 EDT documented in this encounter Plan of Treatment Not on file documented as of this encounter Visit Diagnoses Not on filedocumented in this encounter
--- OUTSIDE RECORDS SUMMARY | 2025-05-10 12:51 | XMS_ITS | Encounter Summary ---
Author Organization [employer] ([place], [place], [place], [place]) Address [address] [place] [address] Care Team Providers Care Drywall Taper Name Role Phone Unavailable Primary Care Provider Unavailjuliana e Encounter Details Date Type Department Care Team (Late st Contact Info) Description 11/29/2018 Transcribed Document [facility] [place] [address] [place] [address] ProviderErika MD [address] [place] [address] Social History Tobacco Use Types [...] Evaluation and Treatment Ordered By: JAY JAY CREPSO MD-DIANE 11/23/2018 15:21 OT Additional Treatment Ordered By: Active Diagnoses : Thoracic aortic aneurysm, ruptured 11/29/2018 00:00 Acute embolism and thrombosis of unspecified deep veins of unspecified lower extremity 11/29/2018 00:00 Acute posthemorrhagic anemia 11/29/2018 00:00 Gastrointestinal hemorrhage, unspecified 11/23/2018 00:00 Cerebral infarction, unspecified 11/17/2018 00:[address] disease [address] [place] coronary artery without angina pectoris 11/17/2018 00:00 Essential (primary) hypertension 11/17/2018 00:00 Hypothyroidism, unspecified 11/17/2018 00:00 Nonrheumatic aortic (valve) insufficiency 11/17/2018 00:00 Restless legs syndrome 11/17/2018 00:00 Thoracic aortic aneurysm, without rupture 11/17/2018 00:00 Thrombocytopenia, unspecified 11/16/2018 00:[address] heart disease of [place] coronary artery without angina pectoris 11/16/2018 00:00 Nonrheumatic aortic (valve) insufficiency 11/16/2018 00:00 Thoracic aortic aneurysm, without rupture Admission Date : 11/16/2018 06:45 Co-treated by, OT : property assistant (MEDIA SUPERVISOR) Personal Devices : Personal Devices No Devices [...] DAKOTA VELAZQUEZ OTR/L - 11/29/2018 13:08 EDT Long-Term Goals, OT Self Feeding LTG Grid Goal [...] VELAZQUEZ, OTR/L - 11/29/2018 13:08 EDT DAKOTA VEALZQUEZ OTR/L - 11/29/2018 13:08 EDT DAKOTA VELAZQUEZ, [...]
--- OUTSIDE RECORDS SUMMARY | 2025-05-10 12:51 | XMS_ITS | Encounter Summary ---
Author Organization [employer] ([place], [place], [place], [place]) Address [address] [place] [address] Care Team Providers Care Metal Casket Assembler Name Role Phone Unavailable Primary Care Provider Unavailabl e Encounter Details Date Type Department Care Team (Late st Contact Info) Description 11/21/2018 Transcribed Document [facility] [place] Family Medicine [address] [place] [address] ProviderErika MD [address] [place] [address] Social History Tobacco Use Types [...] MRI to confirm. -continue asa, statin -Continue PT/OT/SENIOR STEREO COMPILER TEAM LEAD -control blood pressure, aim for whatever is [...] Tab, Oral, At Bedtime saliva substitutes, 1 [place], Buccal, Q2H, PRN Senokot, 17.2 mg= 2 [...]
--- OUTSIDE RECORDS SUMMARY | 2025-05-10 12:51 | XMS_ITS | Encounter Summary ---
Author Organization [employer] ([place], [place], [place], [place]) Address [address] [place] [address] Care Team Providers Care Net Trainer Name Role Phone Unavailable Primary Care Provider Unavailabl e Encounter Details Date Type Department Care Team (Late st Contact Info) Description 11/22/2018 Transcribed Document [facility] [place] [address] [place] [address] ProviderErika MD [address] [place] [address] Social History Tobacco Use Types [...] EDT by LEONEL GUZMAN Chaplain General Information Mu-Ism Preference : Alevism LEONEL GUZMAN Chaplain - 11/24/2018 2:35 EDT Spiritual Assessment Spiritual Assessment Comment/Summary Points : Prov. empathetic engaged listening: Pt. is Alevism, spouse & son visit pt. regularly, Spouse & Pt. in their late teens. Pt. enjoys reminiscing and story telling, Pt. looking forward to [facility] rehab noting he wants/needs to work [...]
--- OUTSIDE RECORDS SUMMARY | 2025-05-10 12:51 | XMS_ITS | Encounter Summary ---
Author Organization [employer] ([place], [place], [place], [place]) Address [address] [place] [address] Care Team Providers Care Plug And Mold Finisher Name Role Phone Unavailable Primary Care Provider Unavailabl e Encounter Details Date Type Department Care Team (Late st Contact Info) Description 11/17/2018 Transcribed Document [facility] [place] Family Medicine [address] [place] [address] ProviderErika MD [address] [place] [address] Social History Tobacco Use Types [...] Source : Measured Height Entry Format : [place] Height, Feet : 6 ft Height, Inches [...]
--- OUTSIDE RECORDS SUMMARY | 2025-05-10 12:51 | XMS_ITS | Encounter Summary ---
Author Organization [employer] ([place], [place], [place], [place]) Address [address] [place] [address] Care Team Providers Care Statistical Typist Name Role Phone Unavailable Primary Care Provider Unavailabl e Encounter Details Date Type Department Care Team (Late st Contact Info) Description 11/22/2018 Transcribed Document [facility] [place] [address] [place] [address] ProviderErika MD [address] [place] [address] Social History Tobacco Use Types [...] Services : Outpt Cardiac Rehab [facility] [phone] F [phone] They will call pt w/ appt time. SUZANNA HAINES, Process Chemist - 11/30/2018 15:30 EDT Driving After Discharge : Do not drive, Other: No driving or operating heavy machinery until released by a physician. JAY JAY CRESPO MD-NEU - 11/22/2018 11:16 EDT documented in this encounter Plan of Treatment Not on file documented as of this encounter Visit Diagnoses Not on filedocumented in this encounter
--- OUTSIDE RECORDS SUMMARY | 2025-05-10 12:51 | XMS_ITS | Encounter Summary ---
Author Organization [employer] ([place], [place], [place], [place]) Address [address] [place] [address] Care Team Providers Care Human Factors Specialist Name Role Phone Unavailable Primary Care Provider Unavailabl e Encounter Details Date Type Department Care Team (Late st Contact Info) Description 11/22/2018 Transcribed Document [facility] [place] Medicine [address] [place] [address] ProviderErika MD [address] [place] [address] Social History Tobacco Use Types Packs/Day Years Used Date Smoking Tobacco: Never Assessed Sex and Gender Information Value Date Recorded Sex Assigned at Not on file Legal Sex Male 5:03 PM CDT Gender Identity Not on file Sexual Orientation Not on file documented as of this encounter Miscellaneous Notes * Cerner Conversion Note - Historical ProviderMD - 11/22/2018 2:00 AM CDT Crate Opener Details Entered On: 11/22/2018 6:09 EDT Performed [...]
--- OUTSIDE RECORDS SUMMARY | 2025-05-10 12:51 | XMS_ITS | Encounter Summary ---
Author Organization [employer] ([place], [place], [place], [place]) Address [address] [place] [address] Care Team Providers Care Manufacturing Engineer Assembly Name Role Phone Unavailable Primary Care Provider Unavailabl e Encounter Details Date Type Department Care Team (Late st Contact Info) Description 11/17/[address] [facility] [place] [address] [place] [address] ProviderErika MD [address] [place] [address] Social History Tobacco Use Types [...]
--- OUTSIDE RECORDS SUMMARY | 2025-05-10 12:51 | XMS_ITS | Encounter Summary ---
Author Organization [employer] ([place], [place], [place], [place]) Address [address] [place] [address] Care Team Providers Care Human Resource Consultant Name Role Phone Unavailable Primary Care Provider Unavailabl e Encounter Details Date Type Department Care Team (Late st Contact Info) Description 11/30/2018 Transcribed Document [facility] [place] [address] [place] [address] ProviderErika MD [address] [place] [address] Social History Tobacco Use Types [...] AUDREY Gonzalez OTR/L - 11/30/2018 14:22 EDT Electronically signed by Christina Saini Conversion Automotive Fuel Injection Servicer Cerner at 12/08/2022 12:25 PM CDT documented in this encounter Plan of Treatment Not on file documented as of this encounter Visit Diagnoses Not on filedocumented in this encounter
--- OUTSIDE RECORDS SUMMARY | 2025-05-10 12:51 | XMS_ITS | Encounter Summary ---
Author Organization [employer] ([place], [place], [place], [place]) Address [address] [place] [address] Care Team Providers Care Production Machine Tender Name Role Phone Unavailable Primary Care Provider Unavailabl e Encounter Details Date Type Department Care Team (Late st Contact Info) Description 11/17/2018 Transcribed Document [facility] [place] Family Medicine [address] [place] [address] ProviderErika MD [address] [place] [address] Social History Tobacco Use [...]
--- OUTSIDE RECORDS SUMMARY | 2025-05-10 12:51 | XMS_ITS | Encounter Summary ---
Author Organization [employer] ([place], [place], [place], [place]) Address [address] [place] [address] Care Team Providers Care Escalator Mechanic Name Role Phone Unavailable Primary Care Provider Unavailabl e Encounter Details Date Type Department Care Team (Late st Contact Info) Description 11/29/2018 Transcribed Document [facility] [place] [address] [place] [address] ProviderErika MD [address] [place] [address] Social History Tobacco Use Types Packs/Day Years Used Date Smoking Tobacco: Never Assessed Sex and Gender Information Value Date Recorded Sex Assigned at Not on file Legal Sex Male 5:03 PM CDT Gender Identity Not on file Sexual Orientation Not on file documented as of this encounter Miscellaneous Notes * Cerner Conversion Note - Erika ProviderMD - 11/29/2018 2:51 PM CDT [facility] Endo PACU Summary Primary Physician: RIGOBERTO YU MD Finalized Date/Time: 11/29/18 15:36:07 Pt. Name: VILLASENOR DOTTIE Ladan /Sex: 1940 Male Med Rec #: [id number] Physician: JULIO CESAR CARVALHO MD-[facility] Financial #: [id number] Pt. Type: I Room/Bed: 330/1 Admit/Disch: 11/16/18 06:45:00 - Institution: [facility] Endo PACU Case Times Entry 1 In PACU I 11/29/18 15:10:00 Ready for PACU 11/29/18 15:35:00 Discharge Discharge from PACU 11/29/18 15:35:00 I Last Modified By: Destiney Mckenzie RN 11/29/18 15:35:51 [facility] Endo PACU Case Times Audit 11/29/18 15:35:51 Banker Mason: [email or web address] Modifier: [email or web address] <+> 1 Ready for PACU Discharge <+> 1 Discharge from PACU I Finalized By: Destiney Mckenzie RN Document Signatures Signed By: Destiney Mckenzie RN 11/29/18 15:36 Electronically signed by Parveen [facility] Conversion Block Cleaner Cerner at 12/08/2022 12:16 PM CDT documented in this encounter Plan of Treatment Not on file documented as of this encounter Visit Diagnoses Not on filedocumented in this encounter
--- OUTSIDE RECORDS SUMMARY | 2025-05-10 12:51 | XMS_ITS | Encounter Summary ---
Author Organization [employer] ([place], [place], [place], [place]) Address [address] [place] [address] Care Team Providers Care Hand Candy Dipper Name Role Phone Unavailable Primary Care Provider Unavailabl e Encounter Details Date Type Department Care Team (Late st Contact Info) Description 11/22/2018 Transcribed Document [facility] [place] Family Medicine [address] [place] [address] ProviderErika MD [address] [place] [address] Social History Tobacco Use [...] Source : Measured Height Entry Format : [place] Height, Feet : 6 ft Height, Inches : 1 Inch Clinical Height : 185.42 cm Amanda Sigala RN - 11/22/2018 6:08 EDT Amanda Sigala RN - 11/22/2018 6:15 EDT documented in this encounter Plan of Treatment Not on file documented as of this encounter Visit Diagnoses Not on filedocumented in this encounter
--- OUTSIDE RECORDS SUMMARY | 2025-05-10 12:51 | XMS_ITS | Encounter Summary ---
Author Organization [employer] ([place], [place], [place], [place]) Address [address] [place] [address] Care Team Providers Care Picking Belt Operator Name Role Phone Unavailable Primary Care Provider Unavailabl e Encounter Details Date Type Department Care Team (Late st Contact Info) Description 11/23/2018 Transcribed Document [facility] [place] Family Medicine [address] [place] [address] ProviderErika MD [address] [place] [address] Social History Tobacco Use [...] unspecified 11/17/2018 00:00 Atherosclerotic heart disease of [place] coronary artery without angina pectoris 11/17/2018 00:00 Essential (primary) hypertension 11/17/2018 00:00 Hypothyroidism, unspecified 11/17/2018 00:00 Nonrheumatic aortic (valve) insufficiency 11/17/2018 00:00 Restless legs syndrome 11/17/2018 00:00 Thoracic aortic aneurysm, without rupture 11/17/2018 00:00 Thrombocytopenia, unspecified 11/16/2018 00:00 Atherosclerotic heart disease of [place] coronary artery without angina pectoris 11/16/2018 [...] AUDREY GRANDE OTR/Ginny - 11/30/2018 15:25 EDT Field Support Rep Goals, OT Self Feeding LTG Grid Goal [...] Family present. MaxAx2 chair to bed transfer, ENGINEERING PSYCHOLOGIST. RN assisting. Pt's L UE very weak. [...]
--- OUTSIDE RECORDS SUMMARY | 2025-05-10 12:51 | XMS_ITS | Encounter Summary ---
Author Organization [employer] ([place], [place], [place], [place]) Address [address] [place] [address] Care Team Providers Care Tailer In Name Role Phone Unavailable Primary Care Provider Unavailabl e Encounter Details Date Type Department Care Team (Late st Contact Info) Description 11/22/2018 Transcribed Document [facility] [place] [address] [place] [address] ProviderErika MD [address] [place], [place] [id number] Social History Tobacco Use Types Packs/Day Years [...] 1940 Associated Diagnoses: CAD (coronary artery disease), [place] coronary artery; Thrombocytopenia; Coronary artery disease; HTN [...] S1, S2, No edema. Integumentary: Warm, Dry, [place], incision is C/D/I. Neurologic: Alert, left sided [...] Prophylaxis: SCDs Diagnosis CAD (coronary artery disease), [place] coronary artery - Admitting, Medical. Thrombocytopenia - Working, Medical. Coronary artery disease - Discharge, Medical. HTN (hypertension) - Pre-Op Diagnosis, Medical. Hypothyroidism - Pre-Op Diagnosis, Medical. Aortic insufficiency - Admitting, Medical. Aortic insufficiency - Discharge, Medical. RLS (restless legs syndrome) - Pre-Op Diagnosis, Medical. Thoracic ascending aortic aneurysm - Admitting, Medical. Thoracic ascending aortic aneurysm - Discharge, Medical. Electronically signed by Parveen, [facility] Conversion Sales Representative Groceries Cerner at 12/08/2022 12:25 PM CDT documented in this encounter Plan of Treatment Not on file documented as of this encounter Visit Diagnoses Not on filedocumented in this encounter
--- OUTSIDE RECORDS SUMMARY | 2025-05-10 12:51 | XMS_ITS | Encounter Summary ---
Author Organization [employer] ([place], [place], [place], [place]) Address [address] [place] [address] Care Team Providers Care Central Melt Specialist Name Role Phone Unavailable Primary Care Provider Unavailabl e Encounter Details Date Type Department Care Team (Late st Contact Info) Description 11/30/2018 Transcribed Document [facility] [place] Family Medicine [address] [place] [address] ProviderErika MD [address] [place] [address] Social History Tobacco Use Types [...]
--- OUTSIDE RECORDS SUMMARY | 2025-05-10 12:51 | XMS_ITS | Encounter Summary ---
Author Organization [employer] ([place], [place], [place], [place]) Address [address] [place] [address] Care Team Providers Care Director Business Management Name Role Phone Unavailable Primary Care Provider Unavailabl e Encounter Details Date Type Department Care Team (Late st Contact Info) Description 11/30/2018 Transcribed Document [facility] [place] Family Medicine [facility] [place] [address] ProviderErika MD [address] [place] [address] Social History Tobacco Use Types [...] Jose MD - 11/30/2018 3:31 PM CDT [address] [address] Patient Copy Patient Information: Name: DOTTIE VILLASENOR Current Date: 11/30/2018 15:31:38 : 1940 Patient Address: [address] [place] [id number] Patient Attending Physician: JULIO CESAR CARVALHO MD-[facility] Primary Care Provider: DEMETRICE ARMIJO NP-[facility] Primary Care Provider Discharge Diagnosis: Acute blood loss anemia; Aortic insufficiency; Coronary artery disease; GI bleed; LUE DVT (deep venous thrombosis); Right MCA CVA (cerebral vascular accident); Thoracic ascending aortic aneurysm Weight on Admission: 174 lb, 5 oz Weight at Discharge: 164 lb, 1 oz Comment: Follow-up Instructions: With: Address: When: JOHN BOWEN [address], [address] [place] [address] Business (1) Within 6 weeks Comments: Patient should call for a follow up appointment with [facility]. Discharge Instructions: Driving after Discharge: Do not drive, Other: No driving or operating heavy machinery until released by a physician. Community Services: Outpt Cardiac Rehab [facility] [phone] They will call pt w/ appt time. [...] 09/17/2005 Document Revised: 01/15/2017 Document Reviewed: 02/10/2014 [employer] Interactive Patient Education ? 2017 [employer] CIGARETTE SMOKING: The facts are clear, cigarette smoking will shorten your life. Smoking can cause many illnesses along the way. As a healthcare provider, we recommend that you stop smoking. Assistance with quitting is available by contacting 1-790-MPTC-NOW. This is a free resource providing counseling, [...] Be sure to sign up for the [employer] patient portal, which gives you 16/03 access to your medical information ??? including these discharge instructions ??? using your computer, smartphone, or tablet. Just go to [employer] to get started. Questions? Call . [facility] would like to thank you for allowing us to assist you with your healthcare needs. HAMILTON Jarvis ROBERT H, (or termite control representative) have received the above patient education materials/instructions and have verbalized understanding: Patient Signature _ Date/Time Patient Funder Signature (if needed) Date/Time Clinician/Hospital Funder Signature (if needed) Date/Time Electronically signed by Parveen [facility] Conversion Plumbing Service Technician Felipe at 12/08/2022 12:33 PM CDT documented in this encounter Plan of Treatment Not on file documented as of this encounter Visit Diagnoses Not on filedocumented in this encounter
--- OUTSIDE RECORDS SUMMARY | 2025-05-10 12:51 | XMS_ITS | Encounter Summary ---
Author Organization [employer] ([place], [place], [place], [place]) Address [address] [place] [address] Care Team Providers Care Veterinary Science Teacher Name Role Phone Unavailable Primary Care Provider Unavailabl e Encounter Details Date Type Department Care Team (Late st Contact Info) Description 11/29/2018 Transcribed Document [facility] [place] [address] [place] [address] ProviderErika MD [address] [place], [...] Historical ProviderMD - 11/29/2018 11:15 AM CDT INFORMATION TECHNOLOGY TECHNICIAN Attempt to Treat Entered On: 11/29/2018 11:15 [...]
--- OUTSIDE RECORDS SUMMARY | 2025-05-10 12:51 | XMS_ITS | Encounter Summary ---
Author Organization [employer] ([place], [place], [place], [place]) Address [address] [place] [address] Care Team Providers Care Dyer Helper Name Role Phone Unavailable Primary Care Provider Unavailabl e Encounter Details Date Type Department Care Team (Late st Contact Info) Description 11/22/2018 Transcribed Document [facility] [place] [address] [place] [address] ProviderErika MD [address] [place] [address] Social History Tobacco Use Types [...]
--- OUTSIDE RECORDS SUMMARY | 2025-05-10 12:51 | XMS_ITS | Encounter Summary ---
Author Organization [employer] ([place], [place], [place], [place]) Address [address] [place] [address] Care Team Providers Care Director [employer] Name Role Phone Unavailable Primary Care Provider Unavailabl e Encounter Details Date Type Department Care Team (Late st Contact Info) Description 11/29/2018 Transcribed Document [facility] [place] Family Medicine [address] [place] [address] ProviderErika MD [address] [place], [place] [id number] Social History Tobacco Use Types Packs/Day Years Used Date Smoking Tobacco: Never Assessed Sex and Gender Information Value Date Recorded Sex Assigned at Not on file Legal Sex Male 5:03 PM CDT Gender Identity Not on file Sexual Orientation Not on file documented as of this encounter Miscellaneous Notes * Cerner Conversion Note - Erika ProviderMD - 11/29/2018 1:37 PM CDT Discharge Summary, ASSISTANCE SPECIALIST Entered On: 11/29/2018 13:40 EDT Performed On: 11/29/2018 13:37 EDT by JOSSUE RODRÍGUEZ ASSISTANCE SPECIALIST Discharge Notation. ASSISTANCE SPECIALIST Dysphagia Treatment After Discharge : No Discharge Diet : Regular Discharge Liquids : Thin Discharge Summary Comment, ASSISTANCE SPECIALIST : Attempted to see pt for [...] - 11/29/2018 13:37 EDT LTG Lang/Comm/Cog LTG ASSISTANCE SPECIALIST Fci Goal 1 Fci Goal 2 Goals : Improved spoken language expression at the time of discharge Improved auditory/spoken language comprehension at the time of discharge Status : Discontinue Discontinue JOSSUE RODRÍGUEZ SLP - 11/29/2018 13:37 EDT JOSSUE RODRÍGUEZ, [facility] - 11/29/2018 13:37 EDT STG Lang_Comm_Cog Motor Speech STG Grid Goal #1 Activity : Improve intelligibility of speech Status : Discontinue JOSSUE RODRÍGUEZ [facility] - 11/29/2018 13:37 EDT Auditory Comprehension Grid Goal #1 Goal #2 Activity : Follow directions, 3 step commands simple Comprehend paragraph complex Status : Discontinue Discontinue JOSSUE RODRÍGUEZ [facility] - 11/29/2018 13:37 EDT JOSSUE RORDÍGUEZ, [facility] - 11/29/2018 13:37 EDT Verbal Expression STG Grid Goal #1 Activity : Generate items in a category Status : Discontinue JOSSUE RODRÍGUEZ ASSISTANCE SPECIALIST - 11/29/2018 13:37 EDT Reading Comprehension STG Grid Goal #1 Activity : Visual perception deficits Status : Discontinue JOSSUE RODRÍGUEZ [facility] - 11/29/2018 13:37 EDT Attention STG Grid Goal #1 Activity : Other: Probe Status : Goal met Date Met : 11/24/2018 EDT JOSSUE RODRÍGUEZ [facility] - 11/29/2018 13:37 EDT Memory STG Grid Goal #1 Goal #2 Goal #3 Activity : Other: Probe Improve short term functional delayed Improve short term working memory Status : Goal met Discontinue Discontinue Date Met : 11/24/2018 EDT JOSSUE RODRÍGUEZ, [facility] - 11/29/2018 13:37 EDT JOSSUE RODRÍGUEZ, [facility] - 11/29/2018 13:37 EDT JOSSUE RODRÍGUEZ, [facility] - 11/29/2018 13:37 EDT Problem Solving STG Grid Goal #1 Goal #2 Goal #3 Goal #4 Activity : Generate a list of simple/concrete items Label items in a category, complex/abstract Other: Probe Improve simple problem solving Status : Discontinue Discontinue Goal met Discontinue Date Met : 11/24/2018 EDT JOSSUE RODRÍGUEZ, ASSISTANCE SPECIALIST - 11/29/2018 13:37 EDT JOSSUE RODRÍGUEZ, [facility] - 11/29/2018 13:37 EDT JOSSUE RODRÍGUEZ, [facility] - 11/29/2018 13:37 EDT JOSSUE RODRÍGUEZ, ASSISTANCE SPECIALIST - 11/29/2018 13:37 EDT Swallow Plan/Goals Swallow LTG Grid ASSISTANCE SPECIALIST Fci Goal #1 ASSISTANCE SPECIALIST Calibration Checker Goal #2 Swallow LTG : Establish safe [...]
--- OUTSIDE RECORDS SUMMARY | 2025-05-10 12:51 | XMS_ITS | Encounter Summary ---
Author Organization [employer] ([place], [place], [place], [place]) Address [address] [place] [address] Care Team Providers Care Tape Control Skin Or Spar Mill Operator Name Role Phone Unavailable Primary Care Provider Unavailabl e Encounter Details Date Type Department Care Team (Late st Contact Info) Description 11/22/2018 Transcribed Document [facility] [place] [address] [place] [address] ProviderErika MD [address] [place] [address] Social History Tobacco Use Types [...] On: 11/22/2018 9:23 EDT by JOSSUE RODRÍGUEZ WEB ASSISTANT General Information Visit Type, WEB ASSISTANT : Re-Evaluation Patient Orders : WEB ASSISTANT Fxnl Limitation Documentation x 1 -111 Start: 11/22/18 8:22:14 EDT - SYSTEM, SYSTEM FEES - Start: 11/22/18 8:21:00 EDT, Routine, For Swallow Eval and Treat -111 MARIEL ROBLES PA WEB ASSISTANT Fxnl Limitation Documentation - Start: 11/20/18 9:37:47 EDT, Continuous Order -111 SYSTEM, SYSTEM Speech Language Pathology Additional Tx - Start: 11/20/18 9:36:00 EDT, For Dysphagia, Continuous Order -111 Admission Date : Admission Date/Time: 11/16/18 06:45:00 Medical Chart Reviewed, WEB ASSISTANT : Yes Personal Devices : Personal Devices No Devices Recorded Assistive Devices : Assistive Devices No Devices Recorded Active Diagnoses : 11/17/2018 00:00 Atherosclerotic heart disease of [place] coronary artery without angina pectoris 11/17/2018 00:00 Essential (primary) hypertension 11/17/2018 00:00 Hypothyroidism, unspecified 11/17/2018 00:00 Nonrheumatic aortic (valve) insufficiency 11/17/2018 00:00 Restless legs syndrome 11/17/2018 00:00 Thoracic aortic aneurysm, without rupture 11/17/2018 00:00 Thrombocytopenia, unspecified 11/16/2018 00:00 Atherosclerotic heart disease of [place] coronary artery without angina pectoris 11/16/2018 00:00 Nonrheumatic aortic (valve) insufficiency 11/16/2018 00:00 Thoracic aortic aneurysm, without rupture Therapy Diagnosis, WEB ASSISTANT : normal oral skills, moderate pharyngeal dysphagia Previous Speech/Language Evaluations : N/A Previous Swallow Precautions : Bedside 11/20 recommended instrumental prior to initiating PO diet Previous Cognitive Evaluations : N/A Diet/Intake Prior to Current Admission : Regular/thin Diet/Intake During Current Admission : NPO with TF via [place] Gag Reflex Intact : Yes Intubation Comment, WEB ASSISTANT : 11/16-11/17 Vital Signs RTF : Vitals [...] 9:23 EDT General Status Patient Received Status, WEB ASSISTANT : Long sitting in bed Patient Left Status, WEB ASSISTANT : Long sitting in bed JOSSUE RODRÍGUEZ [...] Consistencies Trialed FEES : Thin by straw, [place] by straw, Pureed, Regular solids JOSSUE RODRÍGUEZ SLP - 11/22/2018 9:23 EDT Swallow Impressions Impressions, FEES : Pharyngeal dysphagia JOSSUE RODRÍGUEZ SLP - 11/22/2018 9:23 EDT 8 Point Penetration/Aspiration Grid Thin by Straw : 8 [place] by Straw : 1 Pureed : 1 [...] : Regular Recommended Liquid Diet, SwRec : [place] Feeding Presentation Style, SwRec : No restrictions Swallow Position, SwRec : Upright 90 degrees Supervision Level w/Meals, SwRec : Assist, standby Recommended Med Present, SwRec : Crushed, Whole, With nectar, With puree/pudding, No medications with water Recommended Exam, Sw Rec : FEES Repeat Swallow Exam Timeframe : 3-6 days JOSSUE RODRÍGUEZ SLP - 11/22/2018 9:34 EDT Therapy Indication Assessment WEB ASSISTANT Indicated : Yes WEB ASSISTANT Problem List : Impaired, Swallowing JOSSUE RODRÍGUEZ SLP - 11/22/2018 9:34 EDT Swallow Plan/Goals Treatment Frequency, WEB ASSISTANT : 5 times per wk Treatment Plan Est w/Pt/Caregvr, Swallow : Yes JOSSUE RODRÍGUEZ SLP - 11/22/2018 9:34 EDT Swallow LTG Grid WEB ASSISTANT Cold Saw Operator Goal #1 WEB ASSISTANT Mcfp Goal #2 Swallow LTG : Establish safe [...] JOSSUE RODRÍGUEZ SLP - 11/22/2018 9:34 EDT WEB ASSISTANT Education Assessment Grid 1 Aspiration : Needs further teaching Diet Recommendation : Needs further teaching Dysphagia : Needs further teaching Free Water Protocol : Needs further teaching Ice Chips : Needs further teaching Oral Care : Needs further teaching JOSSUE RODRÍGUEZ SLP - 11/22/2018 9:34 EDT WEB ASSISTANT Education Assessment Grid 2 Speech Language Pathology Treatment Plan : Needs further teaching JOSSUE RODRÍGUEZ SLP - 11/22/2018 9:[address] [facility] [facility] WEB ASSISTANT Charges FEES : 1 JOSSUE RODRÍGUEZ SLP - 11/22/2018 9:34 EDT documented in this encounter Plan of Treatment Not on file documented as of this encounter Visit Diagnoses Not on filedocumented in this encounter
--- OUTSIDE RECORDS SUMMARY | 2025-05-10 12:51 | XMS_ITS | Encounter Summary ---
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 Respiratory Assessment Comment : Nasal cannula MAMTA SOLO, ERIC - 11/23/2018 14:12 EDT Visit Type, GAS SCRUBBER OPERATOR : Initial evaluation Patient Orders : Speech Language Pathology Evaluation and Treatment -111 Start: 11/22/18 11:18:00 EDT, Routine, For Speech Language Cognitive Eval and Treat - JAY JAY CRESPO MD-DIANE GAS SCRUBBER OPERATOR Fxnl Limitation Documentation - Start: 11/20/18 9:37:47 EDT, Continuous Order -111 SYSTEM, SYSTEM Speech Language Pathology Additional Tx - Start: 11/20/18 9:36:00 EDT, For Dysphagia, Continuous Order -111 Admission Date : Admission Date/Time: 11/16/18 06:45:00 Medical Chart Reviewed, GAS SCRUBBER OPERATOR : Yes Personal Devices : Personal Devices No Devices Recorded Assistive Devices : Assistive Devices No Devices Recorded Active Diagnoses : 11/23/2018 00:00 Cerebral infarction, unspecified 11/17/2018 00:00 Atherosclerotic heart disease of [place] coronary artery without angina pectoris 11/17/2018 00:00 Essential (primary) hypertension 11/17/2018 00:00 Hypothyroidism, unspecified 11/17/2018 00:00 Nonrheumatic aortic (valve) insufficiency 11/17/2018 00:00 Restless legs syndrome 11/17/2018 00:00 Thoracic aortic aneurysm, without rupture 11/17/2018 00:00 Thrombocytopenia, unspecified 11/16/2018 00:00 Atherosclerotic heart disease of [place] coronary artery without angina pectoris 11/16/2018 00:00 [...] Gag Reflex Intact : Yes Intubation Comment, GAS SCRUBBER OPERATOR : 11/16-11/17 Vital Signs RTF : Vitals [...] 13:41 EDT General Status Patient Received Status, GAS SCRUBBER OPERATOR : Supine in bed Patient Left Status, GAS SCRUBBER OPERATOR : Supine in bed MAMTA SOLO SLP [...] Oral Mechanism for Daily Living : Intact GAS SCRUBBER OPERATOR Cough : Weak MAMTA SOLO SLP - [...] 14:12 EDT Evaluation Methods Types of Evaluation, GAS SCRUBBER OPERATOR : Informal MAMTA SOLO SLP - 11/23/2018 14:12 EDT [facility] Impressions Impressions, Speech/Lang/Cog : Other: Mixed expressive/receptive communication impairment [facility] Overall Impressions : Communication evaluation completed [...] - 11/23/2018 14:12 EDT Therapy Indication Assessment GAS SCRUBBER OPERATOR Indicated : Yes GAS SCRUBBER OPERATOR Interdisciplinary Consultation Needs : No GAS SCRUBBER OPERATOR Problem List : Impaired, Spoken Language Comprehension, Impaired, Spoken Language Expression MAMTA SOLO SLP - 11/23/2018 14:12 EDT LTG Lang/Comm/Cog LTG GAS SCRUBBER OPERATOR Detention Goal 1 Detention Goal 2 Goals [...] MAMTA SOLO SLP - 11/23/2018 14:12 EDT GAS SCRUBBER OPERATOR Education Assessment Grid 1 Evaluation Results : Verbalizes understanding MAMTA SOLO SLP - 11/23/2018 14:12 EDT GAS SCRUBBER OPERATOR Education Assessment Grid 2 Treatment Plan : Verbalizes understanding MAMTA SOLO SLP - 11/23/2018 14:[address] [facility] Charges Evaluation of Speech Production & Language : 1 MAMTA SOLO SLP - 11/23/2018 14:12 EDT Anticipated Discharge Needs, GAS SCRUBBER OPERATOR Anticipated Discharge to OT : Rehab, high intensity Recommend Continued Therapy at Discharge : Yes MAMTA SOLO SLP - 11/23/2018 14:12 EDT documented in this encounter Plan of Treatment Not on file documented as of this encounter Visit Diagnoses Not on filedocumented in this encounter
--- OUTSIDE RECORDS SUMMARY | 2025-05-10 12:51 | XMS_ITS | Encounter Summary ---
Author Organization [employer] ([place], [place], [place], [place]) Address [address] [place] [address] Care Team Providers Care Inspector Aligning Name Role Phone Unavailable Primary Care Provider Unavailabl e Encounter Details Date Type Department Care Team (Late st Contact Info) Description 11/22/2018 Transcribed Document [facility] [place] [address] [place] [address] ProviderErika MD [address], [place] [id number] Social History Tobacco Use Types Packs/Day Years [...] of Systems Respiratory - wearing 02 by [facility] - has NG tube. Objective Vitals [...] Tab, Oral, At Bedtime saliva substitutes, 1 [place], Buccal, Q2H, PRN Senokot, 17.2 mg= 2 Tab, Oral, BID sodium bicarbonate 50 mEq per amp (adult), 50 mEq= 50 mL, IV Push, 1-Time, PRN sodium bicarbonate 50 mEq per amp (adult), 100 mEq= 100 mL, IV Push, 1-Time, PRN Zofran, 4 mg= 2 mL, IV Push, Q4H, PRN Electronically signed by Christina Saini Conversion Marketing Services Specialist Cerner at 12/08/2022 12:16 PM CDT documented in this encounter Plan of Treatment Not on file documented as of this encounter Visit Diagnoses Not on filedocumented in this encounter
--- OUTSIDE RECORDS SUMMARY | 2025-05-10 12:51 | XMS_ITS | Encounter Summary ---
Author Organization [employer] ([place], [place], [place], [place]) Address [address] [place] [address] Care Team Providers Care Configuration Technician Name Role Phone Unavailable Primary Care Provider Unavailabl e Encounter Details Date Type Department Care Team (Late st Contact Info) Description 11/17/2018 Transcribed Document [facility] [place] [address] [place] [address] ProviderErika MD [address] [place] [address] Social History Tobacco Use Types [...] On: 11/17/2018 11:22 EDT by ODALYS FAULKNER Rn-Emergency Response OfficerPublic Health Physician Note Documentation Status Complete : Yes ODALYS FAULKNER Rn-Emergency Response Officer - 11/17/2018 11:22 EDT Patient History Information [...] when pt is awake. CF ODALYS FAULKNER, Rn-Emergency Response Officer - 11/17/2018 11:22 EDT Electronically signed by Parveen hilario Conversion Avionics Electrical Engineer Cerner at 12/08/2022 12:11 PM CDT documented in this encounter Plan of Treatment Not on file documented as of this encounter Visit Diagnoses Not on filedocumented in this encounter
--- OUTSIDE RECORDS SUMMARY | 2025-05-10 12:51 | XMS_ITS | Encounter Summary ---
Author Organization [employer] ([place], [place], [place], [place]) Address [address] [place] [address] Care Team Providers Care Scanning Tech Name Role Phone Unavailable Primary Care Provider Unavailabl e Encounter Details Date Type Department Care Team (Late st Contact Info) Description 11/30/2018 Transcribed Document [facility] [place] [address] [place] [address] ProviderErika MD [address] [place] [address] Social History Tobacco Use Types [...] 3E room 330. Discussed w/ Carmen from [facility] who is still following pt. She has submitted pt info to for approval. Pt had EGD 11/29 which revealed duodenal ulcer w/ clot but no bleeding, no intervention needed, Off heparin gtt, watching pt's INR and H & H. Speech signed off today, pt is cleared for thins. Met w/ pt and family and informed them of [facility] situation. Also discussed outpt Cardiac Rehab. They prefer to go to [facility]. Phoned them and left msg, sent [...] (not seen on 11/25/18) followed up with [facility] today regarding possible admission - plan [...] (not seen on 11/25/18) followed up with [facility] today regarding possible admission - plan is to submit for approval today after being seen by therapy, for their MD approval. Once accepting MD in place, bed in place and patient is medically stable will be able to transfer due to patient not requiring a insurance prior auth. CM will continue to follow. ODALYS FAULKNER Rn-Morgue Attendant - 11/24/18 13:22:19 11/24/18 Andra from [facility] called to let me know they started a precert on this pt. CF ODALYS FAULKNER Rn-Morgue Attendant - 11/22/18 13:56:32 11/22/18 Pt has had a cva. Spoke to his Connie and son Sumeet at the bedside. Pt is lfacid on the left side. Discussed the need for STR and they decided on [facility]. Sent pt info via [employer] to [facility]. CF Documentation Status Complete : Yes SUZANNA HAINES Plant Protection Superintendent - 11/30/2018 15:24 EDT Discharge Planning Details Persons Assisting Patient at Home : Spouse SUZANNA HAINES Social Worker - 11/30/2018 15:24 EDT Electronically signed by [facility] Conversion Director Educational Radio Felipe at 12/08/2022 12:27 PM CDT documented in this encounter Plan of Treatment Not on file documented as of this encounter Visit Diagnoses Not on filedocumented in this encounter
--- OUTSIDE RECORDS SUMMARY | 2025-05-10 12:51 | XMS_ITS | Encounter Summary ---
Author Organization [employer] ([place], [place], [place], [place]) Address [address] [place] [address] Care Team Providers Care Fundraising Assistant Name Role Phone Unavailable Primary Care Provider Unavailabl e Encounter Details Date Type Department Care Team (Late st Contact Info) Description 11/21/2018 Transcribed Document [facility] [place] [address] [place] [address] ProviderErika MD [address] [place] [address] Social History Tobacco Use Types Packs/Day Years Used Date Smoking Tobacco: Never Assessed Sex and Gender Information Value Date Recorded Sex Assigned at Not on file Legal Sex Male 5:03 PM CDT Gender Identity Not on file Sexual Orientation Not on file documented as of this encounter Miscellaneous Notes * Cerner Conversion Note - Historical ProviderMD - 11/21/2018 2:00 AM CDT Wall Mirror Department Supervisor Details Entered On: 11/21/2018 1:40 EDT [...] - 11/21/2018 1:40 EDT Electronically signed by hCristina Saini Conversion Manufacturing Project Engineer Felipe at 12/08/2022 12:39 PM CDT documented in this encounter Plan of Treatment Not on file documented as of this encounter Visit Diagnoses Not on filedocumented in this encounter
--- OUTSIDE RECORDS SUMMARY | 2025-05-10 12:51 | XMS_ITS | Encounter Summary ---
Author Organization [employer] ([place], [place], [place], [place]) Address [address] [place] [address] Care Team Providers Care Semi Driver Name Role Phone Unavailable Primary Care Provider Unavailabl e Encounter Details Date Type Department Care Team (Late st Contact Info) Description 11/21/2018 Transcribed Document [facility] [place] Medicine [address] [place] [address] ProviderErika MD [address] [place] [address] Social History Tobacco Use Types [...] Source : Measured Height Entry Format : Cook Height, Feet : 6 ft Height, Inches [...]
--- OUTSIDE RECORDS SUMMARY | 2025-05-10 12:51 | XMS_ITS | Encounter Summary ---
Author Organization [employer] ([place], [place], [place], [place]) Address [address] [place] [address] Care Team Providers Care Superintendent Division Name Role Phone Unavailable Primary Care Provider Unavailabl e Encounter Details Date Type Department Care Team (Late st Contact Info) Description 11/23/2018 Transcribed Document [facility] [place] [address] [place] [address] ProviderErika MD [address] [place] [address] Social History Tobacco Use Types [...] Time of Assessment : 11/23/2018 20:00 EDT [facility] Clinician Administering Scale : SHELDON MUELLER [...] in one limb NIH Sensory (8) : Bust-rh-ublgcnqt sensory loss NIH Best Language (9) : No aphasia NIH Dysarthria (10) : Normal Extinction and Inattention (11) : No abnormality NIH Scale Score : 9 SHELDON MUELLER RN - 11/23/2018 20:14 EDT documented in this encounter Plan of Treatment Not on file documented as of this encounter Visit Diagnoses Not on filedocumented in this encounter
--- OUTSIDE RECORDS SUMMARY | 2025-05-10 12:51 | XMS_ITS | Encounter Summary ---
Author Organization [employer] ([place], [place], [place], [place]) Address [address] [place] [address] Care Team Providers Care Supervisor Canvas Products Name Role Phone Unavailable Primary Care Provider Unavailabl e Encounter Details Date Type Department Care Team (Late st Contact Info) Description 11/22/2018 Transcribed Document [facility] [place] [address] [place] [address] ProviderErika MD [address] [place] [address] Social History Tobacco Use Types [...] unspecified 11/17/2018 00:00 Atherosclerotic heart disease of [place] [...] TARI MOORE OTR/L 11/23/2018 15:10 EDT Hand Certified Physical Therapist Assistant Test : trace with digits TARI MOORE [...] TARI MOORE OTR/Ginny - 11/23/2018 15:10 EDT Supervisor Dry Paste Goals, OT Self Feeding LTG Grid Goal [...]
--- OUTSIDE RECORDS SUMMARY | 2025-05-10 12:51 | XMS_ITS | Encounter Summary ---
Author Organization [employer] ([place], [place], [place], [place]) Address [address] [place] [address] Care Team Providers Care Shoe Lacer Name Role Phone Unavailable Primary Care Provider Unavailabl e Encounter Details Date Type Department Care Team (Late st Contact Info) Description 11/30/[address] [facility] [place] [address] [place] [address] ProviderErika MD [address] [place], [place] [id number] Social History Tobacco Use Types Packs/Day Years [...] 1940 Associated Diagnoses: CAD (coronary artery disease), [place] coronary artery; Thrombocytopenia; Coronary artery disease; HTN [...] Non-distended, Normal bowel sounds. Integumentary: Warm, Dry, [place], incision is C/D/I. Neurologic: Alert, left sided [...] (Current Encounter/Past 24 Hours) PT 27.4 Second(s) VT 11/30/2018 07:23 INR 2.6 VT 11/30/2018 07:23 . Impression and Plan Plan: [...] of discharge- CM has sent information to [facility] -Transfer to [facility] 11/24/18 -POD#8 -Awaiting transfer to [facility] -Awaiting response from [facility] 11/25/18 -POD#9 -left upper extremity venous doppler - doppler this am positive for LUE DVT - will start coumadin and heparin bridge -awaiting [facility] 11/26/18 -POD#10 -Heparin drip and coumadin for LUE DVT -Left arm swelling improved today -INR 1.1 today, INR goal 2-3 -Possibly transfer to [facility] this weekend 11/27/18: -POD#11 -Left arm swelling continues to improve -Continues on Coumadin and heparin bridge -INR: 1.4 (1.1 yesterday) goal: 2 to 3 -[facility] soon,? Tomorrow 11/28/18: -POD#12 -BP in 70s-80s this AM -He had a dark black stool and has had a couple of fluid boluses -Heparin was D/C'd and his INR is 2.0 this AM (on coumadin 5mg qd) -Hct is down to 23.6 -GI med has been consulted and he is to undergo EGD -Also some blood has been set up. -Transferred to [facility] 11/29/18: -POD#13 -Upper endoscopy showed [...] D/C due to GI bleed. -Transfer to [facility] 11/30/18 POD # 14 EGD yesterday - duodenal ulceration with clot, no active bleeding and no intervention performed INR trending down, off coumadin and heparin Speech signed off yesterday - speech and cognition back to baseline Watch INR and H&H [facility] upon discharge EF 55-60% per echo 11/16/18 DVT Prophylaxis: SCDs Diagnosis CAD (coronary artery disease), [place] coronary artery - Admitting, Medical. Thrombocytopenia - [...] Discharge, Medical. Electronically signed by Interface, [facility] Conversion Avionics Engineer Cerner at 12/08/2022 12:34 PM CDT documented in this encounter Plan of Treatment Not on file documented as of this encounter Visit Diagnoses Not on filedocumented in this encounter
--- OUTSIDE RECORDS SUMMARY | 2025-05-10 12:51 | XMS_ITS | Encounter Summary ---
Author Organization [employer] ([place], [place], [place], [place]) Address [address] [place] [address] Care Team Providers Care Clinical Trainer Name Role Phone Unavailable Primary Care Provider Unavailabl e Encounter Details Date Type Department Care Team (Late st Contact Info) Description 11/21/2018 Transcribed Document [facility] [place] [address] [place] [address] ProviderErika MD [address] [place], [place] [phone] Social History Tobacco Use Types Packs/Day Years [...] Bedtime, Routine HEENT saliva substitutes - 1 [place], Buccal, Liquid, Q2H, PRN for Other (See [...] Radiology results Radiology Results (Last 48 hours) [id number] -- 11/16/2018 06:45 CR Chest 1 Vw Portable (11/20/2018 04:12) Result: PORTABLE CHEST 11/20/2018 4:00 AMHISTORY: Shortness of breathCOMPARISON: 1 day priorFINDINGS: A [place]-Jovanna catheter tip terminates in the SVC. The [place]-Ganzcatheter has been retracted. The cardiac silhouette is [...]
--- OUTSIDE RECORDS SUMMARY | 2025-05-10 12:51 | XMS_ITS | Encounter Summary ---
Author Organization [employer] ([place], [place], [place], [place]) Address [address] [place] [address] Care Team Providers Care Scientific Recruiter Name Role Phone Unavailable Primary Care Provider Unavailabl e Encounter Details Date Type Department Care Team (Late st Contact Info) Description 11/30/2018 Transcribed Document [facility] [place] Medicine [address] [place] [address] ProviderErika MD [address] [place] [address] Social History Tobacco Use Types [...]
--- OUTSIDE RECORDS SUMMARY | 2025-05-10 12:51 | XMS_ITS | Encounter Summary ---
Author Organization [employer] ([place], [place], [place], [place]) Address [address] [place] [address] Care Team Providers Care Pin Feather Machine Operator Name Role Phone Unavailable Primary Care Provider Unavailabl e Encounter Details Date Type Department Care Team (Late st Contact Info) Description 11/22/2018 Transcribed Document [facility] [place] [address] [address] ProviderErika MD [address] [place] [address] Social History Tobacco Use Types [...] On: 11/22/2018 13:55 EDT by ODALYS FAULKNER Rn-Centrifugal Station OperatorChild Care Education Coordinator Note Care Management Note : 11/22/18 Pt has had a cva. Spoke to his Connie and son Sumeet at the bedside. Pt is lfacid on the left side. Discussed the need for STR and they decided on [facility]. Sent pt info via [employer] to [facility]. CF Documentation Status Complete : Yes ODALYS FAULKNER Rn-Centrifugal Station Operator - 11/22/2018 13:55 EDT Patient History Emergency Contact #1 : Connie Emergency Contact #1 (H) Emergency Contact #1 Relationship : Emergency Contact #2 : Sheridan Fernando Emergency Contact #2 (C) Emergency Contact #2 Relationship : daughter Living Situation : Home Patient Lives With : Spouse Current Home Treatments : None Patient History Note Report : ODALYS FAULKNER Rn-Centrifugal Station Operator - 11/17/18 11:25:13 11/17/18 Pt sleeping and [...] when pt is awake. CF ODALYS FAULKNER Rn-Centrifugal Station Operator - 11/22/2018 13:55 EDT Electronically signed by [facility], [facility] Conversion Plastic Surgery Coordinator Cerner at 12/08/2022 12:32 PM CDT documented in this encounter Plan of Treatment Not on file documented as of this encounter Visit Diagnoses Not on filedocumented in this encounter
--- OUTSIDE RECORDS SUMMARY | 2025-05-10 12:51 | XMS_ITS | Encounter Summary ---
Author Organization [employer] ([place], [place], [place], [place]) Address [address] [place] [address] Care Team Providers Care Mobility Specialist Name Role Phone Unavailable Primary Care Provider Unavailabl e Encounter Details Date Type Department Care Team (Late st Contact Info) Description 11/29/2018 Transcribed Document [facility] [place] [facility] [place] [address] ProviderErika MD [address], [place] [phone] Social History Tobacco Use Types Packs/Day Years [...]
--- OUTSIDE RECORDS SUMMARY | 2025-05-10 12:51 | XMS_ITS | Encounter Summary ---
Author Organization [employer] ([place], [place], [place], [place]) Address [address] [place] [address] Care Team Providers Care Certified Legal Investigator Name Role Phone Unavailable Primary Care Provider Unavailabl e Encounter Details Date Type Department Care Team (Late st Contact Info) Description 11/30/2018 Transcribed Document [facility] [place] [address] [place] [address] ProviderErika MD [address] [place] [address] Social History Tobacco Use Types [...]
--- OUTSIDE RECORDS SUMMARY | 2025-05-10 12:51 | XMS_ITS | Encounter Summary ---
Author Organization [employer] ([place], [place], [place], [place]) Address [address] [place] [address] Care Team Providers Care Electronic Health Records Specialist Name Role Phone Unavailable Primary Care Provider Unavailabl e Encounter Details Date Type Department Care Team (Late st Contact Info) Description 11/17/2018 Transcribed Document [facility] Cardiology [address] [place] [address] Lc Armendariz MD [address] [facility] [address] [place] [address] Social History Tobacco Use Types [...] MD-CAR Basic Information PCP: Sanjuana Espino MD Hand Deicer Element Winder: Porfirio Combs MD Chief Complaint s/p bioprosthetic [...] list: All Problems Aneurysm, thoracic aortic / 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 / Confirmed Aortic valve insufficiency / 445390112 / Confirmed Arthritis / 7657591 / Confirmed At risk for sleep apnea / 18498557 / Confirmed CAD (coronary artery disease) / 04968797 / Confirmed Disorder of prostate ( enlarged) / 98606104 / Confirmed HTN - Hypertension / 6176043642 / Confirmed Hypothyroidism / 56211325 / Confirmed Frequent urination / 835355396 / Confirmed Cancer of skin of face / 2195034359 / Confirmed Nocturia / 320479782 / Confirmed Restless legs syndrome / 22556240 / Confirmed Prostate stricture / 49216593 / Confirmed Resolved: Bladder stone / 798188165 Canceled: Aneurysm / 1046978530 Canceled: Thyroid disease / 122207594 Histories No education data available. Social & Psychosocial Habits Alcohol 04/16/2017 Alcohol Use History, Social Habits No Alcohol Use in Last Twelve Months No Home/Environment 11/15/2018 Lives with: Spouse Living situation: Home/Independent Substance Abuse 04/16/2017 Recreational Drug Use History No Recreational Drug Use Last 12 Months No Tobacco 04/16/2017 Smoking Status Never smoker Past Medical History: Active HTN - Hypertension (0078175439) Hypothyroidism (42337075) Family History: Entire family history is negative. [...] No tenderness, No swelling. Integumentary: Warm, Dry, [place]. Neurologic: Not alert, Not oriented. Psychiatric: not [...] 11/17/2018 05:17 Radiology Results (Last 48 hours) [id number] -- 11/16/2018 06:45 CR Chest 2 Vws [...] Anasogastric tube extends below the diaphragm. Left-sided [place]-Ganzcatheter tip is in the left main pulmonary [...] day.FINDINGS: The heart is normal in size. [place]-Jovanna catheter tips in theleft pulmonary artery. There [...]
--- OUTSIDE RECORDS SUMMARY | 2025-05-10 12:51 | XMS_ITS | Encounter Summary ---
Author Organization [employer] ([place], [place], [place], [place]) Address [address] [place] [address] Care Team Providers Care Cold Working Inspector Name Role Phone Unavailable Primary Care Provider Unavailabl e Encounter Details Date Type Department Care Team (Late st Contact Info) Description 11/22/2018 Transcribed Document [facility] [place] [address] [place] [address] ProviderErika MD [address] [place] [address] Social History Tobacco Use Types [...] at goal rate. Did have BM yesterday. TRAFFIC MANAGER okayed pt for po diet this am- follow up after breakfast and pt had eating 50% of meal. Pt stated he would enjoy ensure as well. Spoke with RN about observing 1-2 more meals before removing corpak and speaking with MD as well. 11/18: Check on: Pt is on Osmolite 1.5 @ 50m/hr + 1 [id number] daily advancing toward goal of 60ml/hr + 1 Dupxlnpxg42 daily. No TRAFFIC MANAGER consult noted, discussed if any concern for [...] Support: Jevity 1.5 @ 60ml/hr + 1 [id number] daily, HT: 185cm (6'1) ADMIT WT: 79kg/174# Current Wt: 81.6kg (11/17), 82.4kg (11/18) , 84.3 kg (11/22) BMI: 23 IBW: 79kg/100% EST NEEDS: 7245-3069 kcal (25-30kcal/kg), 95g pro (1.2g/kg) DAVION GREEN [...] 11/22/2018 12:04 EDT Electronically signed by Parveen, [facility] Conversion Supervisor Lump Room Cerner at 12/08/2022 12:11 PM CDT documented in this encounter Plan of Treatment Not on file documented as of this encounter Visit Diagnoses Not on filedocumented in this encounter
--- OUTSIDE RECORDS SUMMARY | 2025-05-10 12:51 | XMS_ITS | Encounter Summary ---
Author Organization [employer] ([place], [place], [place], [place]) Address [address] [place] [address] Care Team Providers Care Aerographer Name Role Phone Unavailable Primary Care Provider Unavailabl e Encounter Details Date Type Department Care Team (Late st Contact Info) Description 11/29/2018 Transcribed Document [facility] [place] [address] [place] [address] ProviderErika MD [address] [place], [place] [phone] Social History Tobacco Use Types Packs/Day Years Used Date Smoking Tobacco: Never Assessed Sex and Gender Information Value Date Recorded Sex Assigned at Not on file Legal Sex Male 5:03 PM CDT Gender Identity Not on file Sexual Orientation Not on file documented as of this encounter Miscellaneous Notes * Cerner Conversion Note - Historical ProviderMD - 11/29/2018 2:00 AM CDT Strap Cutting Machine Operator Details Entered On: 11/29/2018 1:39 EDT Performed [...]
--- OUTSIDE RECORDS SUMMARY | 2025-05-10 12:51 | XMS_ITS | Encounter Summary ---
Author Organization [employer] ([place], [place], [place], [place]) Address [address] [place] [address] Care Team Providers Care Weatherization Administrator Name Role Phone Unavailable Primary Care Provider Unavailabl e Encounter Details Date Type Department Care Team (Late st Contact Info) Description 11/30/2018 Transcribed Document [facility] [place] [address] [place] [address] ProviderErika MD [address] [place], [...] 2 Tab, Oral, BID saliva substitutes, 1 [place], Buccal, Q2H, PRN Senokot, 17.2 mg= 2 Tab, Oral, BID Synthroid, 50 mcg= 2.5 mL, IV Push, Q48H Zofran, 4 mg= 2 mL, IV Push, Q4H, PRN Electronically signed by Christina Saini Conversion Accounts Payable Administrator Cerner at 12/08/2022 12:29 PM CDT documented in this encounter Plan of Treatment Not on file documented as of this encounter Visit Diagnoses Not on filedocumented in this encounter
--- OUTSIDE RECORDS SUMMARY | 2025-05-10 12:51 | XMS_ITS | Encounter Summary ---
Author Organization [employer] ([place], [place], [place], [place]) Address [address] [place] [address] Care Team Providers Care Applications Instructor Name Role Phone Unavailable Primary Care Provider Unavailabl e Encounter Details Date Type Department Care Team (Late st Contact Info) Description 11/17/2018 Transcribed Document [facility] [place] [address] [place] [address] ProviderErika MD [address] [place] [address] Social History Tobacco Use Types [...]
--- OUTSIDE RECORDS SUMMARY | 2025-05-10 12:51 | XMS_ITS | Encounter Summary ---
Author Organization [employer] ([place], [place], [place], [place]) Address [address] [place] [address] Care Team Providers Care Bench Molder Apprentice Name Role Phone Unavailable Primary Care Provider Unavailabl e Encounter Details Date Type Department Care Team (Late st Contact Info) Description 11/22/2018 Transcribed Document [facility] [place] Family Medicine [address] [place] [address] ProviderErika MD [address] [place] [address] Social History Tobacco Use Types Packs/Day Years Used Date Smoking Tobacco: Never Assessed Sex and Gender Information Value Date Recorded Sex Assigned at Not on file Legal Sex Male 5:03 PM CDT Gender Identity Not on file Sexual Orientation Not on file documented as of this encounter Miscellaneous Notes * Cerner Conversion Note - Historical ProviderMD - 11/22/2018 12:18 PM CDT HOLTER TECHNICIAN Attempt to Treat Entered On: 11/22/2018 12:20 EDT Performed On: 11/22/2018 12:18 EDT by JOSSUE RODRÍGUEZ SLP Attempt to Treat Inability to Treat Comment : New orders received from Neurologist. ST is currently following pt for dysphagia. Will await neuro dx for full communication JOSSUE Mccarthy, HOLTER TECHNICIAN - 11/22/2018 12:18 EDT Electronically signed by Christina Saini Conversion Wafer Fabrication Technician Cerner at 12/08/2022 12:12 PM CDT documented in this encounter Plan of Treatment Not on file documented as of this encounter Visit Diagnoses Not on filedocumented in this encounter
--- OUTSIDE RECORDS SUMMARY | 2025-05-10 12:51 | XMS_ITS | Encounter Summary ---
Author Organization [employer] ([place], [place], [place], [place]) Address [address] [place] [address] Care Team Providers Care Oil And Gas Drafter Name Role Phone Unavailable Primary Care Provider Unavailabl e Encounter Details Date Type Department Care Team (Late st Contact Info) Description 11/29/[address] [facility] [place] Family Medicine [address] [place] [address] ProviderErika MD [address] [place] [address] Social History Tobacco Use [...] EDT Electronically signed by Christina Saini Conversion Wastewater Treatment Engineer Cerner at 12/08/2022 12:25 PM CDT documented in this encounter Plan of Treatment Not on file documented as of this encounter Visit Diagnoses Not on filedocumented in this encounter
--- OUTSIDE RECORDS SUMMARY | 2025-05-10 12:51 | XMS_ITS | Encounter Summary ---
Author Organization [employer] ([place], [place], [place], [place]) Address [address] [place] [address] Care Team Providers Care Windrower Operator Name Role Phone Unavailable Primary Care Provider Unavailabl e Encounter Details Date Type Department Care Team (Late st Contact Info) Description 11/29/2018 Transcribed Document [facility] [place] [address] [place] [address] ProviderErika MD [address] [place] [address] Social History Tobacco Use Types Packs/Day Years Used Date Smoking Tobacco: Never Assessed Sex and Gender Information Value Date Recorded Sex Assigned at Not on file Legal Sex Male 5:03 PM CDT Gender Identity Not on file Sexual Orientation Not on file documented as of this encounter Miscellaneous Notes * Cerner Conversion Note - Erika ProviderMD - 11/29/2018 2:51 PM CDT [facility] IntraOp Summary Primary Physician: RIGOBERTO YU MD Finalized Date/Time: 11/29/18 15:07:06 Pt. Name: DOTTIE VILLASENOR /Sex: 1940 Male Med Rec #: [id number] Physician: JULIO CESAR CARVALHO MD-[facility] Financial #: [id number] Pt. Type: I Room/Bed: [facility]/ Admit/Disch: 11/16/18 06:45:00 - Institution: [facility] - Case Attendance Entry 1 Entry 2 Entry 3 Case Attendee RIGOBERTO YU MD Reynolds, Ashley N, RN JONNATHAN LUBIN Role Performed Surgeon/Proceduralist, Superintendent Operations Division, First Scrub, First First Time In 11/29/18 [...] Patino Crna CORNEA, MIHAELA, MD Role Performed INSTRUCTOR APPAREL MANUFACTURE/Nurse Automotive Wholesale Parts Advisor Anesthesiologist of Record Time In 11/29/18 14:47:00 11/29/18 14:47:00 Time Out 11/29/18 15:09:00 11/29/18 15:09:00 Procedure EGD w Control Bleeding EGD w Control Bleeding Other Attendee Superficial Wound Closed By: Last Modified By: Gem Parekh RN Reynolds, Ashley N, RN 11/29/18 15:06:55 11/29/18 15:06:55 [facility] - Case Attendance Audit 11/29/18 15:06:55 Cold Molding Press Operator: [email or web address] Modifier: [email or web address] 1 <+> Time Out 1 <*> Procedure EGD w Control Bleeding 2 <+> Time Out 2 <*> Procedure EGD w Control Bleeding 3 <+> Time Out 3 <*> Procedure EGD w Control Bleeding 4 <+> Time Out 4 <*> Procedure EGD w Control Bleeding 5 <+> Time Out 5 <*> Procedure EGD w Control Bleeding 11/29/18 14:59:16 Cold Molding Press Operator: [email or web address] Modifier: [email or web address] <+> 1 Procedure <+> 2 Procedure <+> 3 Procedure <+> 4 Procedure <+> 5 Procedure 11/29/18 14:59:14 Cold Molding Press Operator: [email or web address] Modifier: [email or web address] 1 <-> Procedure Esophagogastroduodenoscopy 2 <-> Procedure Esophagogastroduodenoscopy 3 <-> Procedure Esophagogastroduodenoscopy 4 <-> Procedure Esophagogastroduodenoscopy 5 <-> Procedure Esophagogastroduodenoscopy 11/29/18 14:49:19 Cold Molding Press Operator: [email or web address] Modifier: [email or web address] 1 <*> Procedure Esophagogastroduodenoscopy 2 <+> Time In 2 <*> Procedure Esophagogastroduodenoscopy 3 <+> Time In 3 <*> Procedure Esophagogastroduodenoscopy 4 <+> Time In 4 <*> Procedure Esophagogastroduodenoscopy 5 <+> Time In 5 <*> Procedure Esophagogastroduodenoscopy 11/29/18 14:48:29 Cold Molding Press Operator: [email or web address] Modifier: [email or web address] 1 <+> Time In 1 <*> Procedure Esophagogastroduodenoscopy <+> 2 Case Attendee <+> 2 Role Performed <+> 2 Procedure <+> 3 Case Attendee <+> 3 Role Performed <+> 3 Procedure <+> 4 Case Attendee <+> 4 Role Performed <+> 4 Procedure <+> 5 Case Attendee <+> 5 Role Performed <+> 5 Procedure [facility] - Case times Entry 1 Patient In Room Time 11/29/18 14:47:00 Out Room Time 11/29/18 15:09:00 Anesthesia Start Time 11/29/18 14:47:00 Stop Time 11/29/18 15:09:00 Surgery / Procedure Times Start Time 11/29/18 14:51:00 Stop Time 11/29/18 15:06:00 Last Modified By: Gem Parekh RN 11/29/18 15:06:53 [facility] - Case times Audit 11/29/18 15:06:53 Cold Molding Press Operator: [email or web address] Modifier: [email or web address] <+> 1 Out Room Time <+> 1 Stop Time <+> 1 Stop Time 11/29/18 14:51:51 Cold Molding Press Operator: [email or web address] Modifier: [email or web address] <+> 1 Start Time [facility] - Delays Entry 1 Delay Reason Other Duration 0 Minute(s) Last Modified By: Gem Parekh RN 11/29/18 14:48:33 [facility] - Departure from OR Entry 1 Integumentary Assessment Integumentary WDL Assessment WDL Transfer/Handoff Transfer to PACU Phase I Handoff Method Bedside/Face to face Post-op Transport Stretcher/Gurney Via Patient Transport Gem Parekh RN, Accompanied by Cassie Patino Crna Last Modified By: Gem Parekh RN 11/29/18 14:48:36 [facility] - Endoscopy Details Entry 1 Abdomen Procedure Soft, Non-Tender Assessment Procedure Abdomen 11/29/18 14:47:00 Assessment D/T Radio Frequency Ablation Last Modified By: Gem Parekh RN 11/29/18 14:48:41 [facility] - Fire Risk Assessment Entry 1 [...] Modified By: Gem Parekh RN 11/29/18 14:48:48 [facility] - General Case Executive Recruiter 1 Case Information OR Endo 01 [facility] Case Level 1 Room Verified Yes Wound Class II - Clean-Contaminated Specialty SN Gastroenterology Anesthesia Type MAC ASA Class 4 Diagnosis Preop Diagnosis GI Bleed Postop Same As Preop Yes Postop Diagnosis GI Bleed Last Modified By: Gem Parekh RN 11/29/18 14:48:58 [facility] - Implant Log Entry 1 Entry 2 Type Implant (Synthetic) Implant (Synthetic) Implant Log Implant Type Tissue Implant Type Implant CLIP II RESOLUTION CLIP II RESOLUTION Identification [id number] Description Implant Quantity 1 1 Implant Site Implant Identification Model Number Implant Identification Serial Number Implant [id number] Identification Lot Number Implant [employer]:Interv [employer] Sci:Interv Identification Cardiology Cardiology Neurology Physician Assistant Name: Implant [id number] Identification Catalog Number Implant Size Implant Has an Yes Yes Expiration Date Implant Expiration 09/05/21 07/10/21 Date Wasted Radioactive Material Time Implanted Tissue Implant Continue for Tissue Implant Documentation Tissue Identification Number Graft Prep Per Neurology Physician Assistant Instructions: Tissue Preparation Method: Reconstitution Solution: Reconstitution Solution Lot Number Reconstitution Solution Expiration Date: Thawing Solution Thawing Solution Lot Number Thawing Solution Expiration Date Preparation Materials, Other Preparation Materials, Other Lot Number Preparation Materials, Other Expiration Date Tissue Prepared/Processed By Neurology Physician Assistant Paperwork Completed Implant Type Comment clip failed Last Modified By: Gem Parekh RN Reynolds, Ashley N, RN 11/29/18 15:00:27 11/29/18 15:06:45 [facility] - Implant Log Audit 11/29/18 15:06:45 Cold Molding Press Operator: GARY Modifier: [email or web address] 2 <*> Implant Identification Description CLIP II RESOLUTION [id number] <+> Implant Type Comment 11/29/18 15:04:27 Cold Molding Press Operator: [email or web address] Modifier: [email or web address] <+> 2 Implant Identification Description <+> 2 Implant Identification Lot Number <+> 2 Implant Identification Neurology Physician Assistant Name: <+> 2 Implant Expiration Date <+> 2 Implant Quantity <+> 2 Implant Identification Catalog Number <+> 2 Implant Has an Expiration Date <+> 2 Type [facility] - Intraoperative Assessment Entry 1 Valid History / Yes Physical in Chart Preoperative Yes Checklist Reviewed/Evaluated Patient is Latex No Sensitive Level of WDL Consciousness (WDL = Alert, Oriented to Person, Place, and Time) Last Modified By: eGm Parekh RN 11/29/18 14:49:01 [facility] - Intraoperative Equipment Entry 1 Entry [...] Ashley N, RN 11/29/18 14:49:07 11/29/18 14:56:48 [facility] - Intraoperative Equipment Audit 11/29/18 14:56:48 Cold Molding Press Operator: [email or web address] Modifier: [email or web address] <+> 2 Photo <+> 2 Video <+> 2 Electrocardiogram (ECG) Electrode Placement <+> 2 Blood Pressure Location <+> 2 Pulse Oximeter Probe Site <+> 2 Flexible Endoscopes Used <+> 2 Scope Serial Number/Identification Number <+> 2 Type [facility] - Patient Positioning Entry 1 Procedure [...] Modified By: Gem Parekh RN 11/29/18 14:59:16 [facility] - Patient Positioning Audit 11/29/18 14:59:16 Cold Molding Press Operator: [email or web address] Modifier: [email or web address] <+> 1 Procedure 11/29/18 14:59:14 Cold Molding Press Operator: [email or web address] Modifier: [email or web address] 1 <-> Procedure Esophagogastroduodenoscopy [facility] - Sign In Entry 1 Patient, Site, Yes Procedure Identified Surgical Consent Yes Confirmed Surgical Site N/A Marked by person performing procedure Airway Hypothermia Risk No Warming Measures No Taken Last Modified By: Gem Parekh RN 11/29/18 14:49:18 [facility] - Sign Out Entry 1 RN [...] Modified By: Gem Parekh RN 11/29/18 15:07:01 [facility] - Surgical Procedures Entry 1 Procedure EGD w Control Bleeding Primary Procedure Yes Primary Surgeon RIGOBERTO YU MD Start 11/29/18 14:51:00 Stop 11/29/18 15:06:00 Anesthesia Type MAC Specialty SN Gastroenterology Wound Class II - Clean-Contaminated Last Modified By: Gem Parekh RN 11/29/18 15:07:04 [facility] - Surgical Procedures Audit 11/29/18 15:07:04 Cold Molding Press Operator: [email or web address] Modifier: [email or web address] <+> 1 Stop 11/29/18 14:59:15 Cold Molding Press Operator: [email or web address] Modifier: [email or web address] 1 <*> Procedure Esophagogastroduodenoscopy 1 <+> Start 11/29/18 14:49:23 Cold Molding Press Operator: [email or web address] Modifier: [email or web address] 1 <*> Procedure Esophagogastroduodenoscopy 1 <+> Specialty [facility] - Time Out Entry 1 Procedure [...] Modified By: Gem Parekh RN 11/29/18 14:59:17 [facility] - Time Out Audit 11/29/18 14:59:17 Cold Molding Press Operator: [email or web address] Modifier: [email or web address] <+> 1 Procedure to be Performed 11/29/18 14:59:15 Cold Molding Press Operator: [email or web address] Modifier: [email or web address] 1 <-> Procedure to be Performed Esophagogastroduodenoscopy Case Comments <None> Finalized By: Gem Parekh RN Document Signatures Signed By: Gem Parekh RN 11/29/18 15:07 documented in this encounter Plan of Treatment Not on file documented as of this encounter Visit Diagnoses Not on filedocumented in this encounter
--- OUTSIDE RECORDS SUMMARY | 2025-05-10 12:51 | XMS_ITS | Encounter Summary ---
Author Organization [employer] ([place], [place], [place], [place]) Address [address] [place] [address] Care Team Providers Care Capacity Manager Name Role Phone Unavailable Primary Care Provider Unavailabl e Encounter Details Date Type Department Care Team (Late st Contact Info) Description 11/17/2018 Transcribed Document [facility] [place] Family Medicine [address] [place] [address] ProviderErika MD [address] [place] [address] Social History Tobacco Use Types Packs/Day Years Used Date Smoking Tobacco: Never Assessed Sex and Gender Information Value Date Recorded Sex Assigned at Not on file Legal Sex Male 5:03 PM CDT Gender Identity Not on file Sexual Orientation Not on file documented as of this encounter Miscellaneous Notes * Cerner Conversion Note - Historical ProviderMD - 11/17/2018 2:00 AM CDT Parts Clerk Plant Maintenance Details Entered On: 11/17/2018 7:39 EDT Performed [...]
--- OUTSIDE RECORDS SUMMARY | 2025-05-10 12:51 | XMS_ITS | Encounter Summary ---
Author Organization [employer] ([place], [place], [place], [place]) Address [address] [place] [address] Care Team Providers Care Director Of Retail Analytics Name Role Phone Unavailable Primary Care Provider Unavailabl e Encounter Details Date Type Department Care Team (Late st Contact Info) Description 11/29/2018 Transcribed Document [facility] [place] Family Medicine [address] [place] [address] ProviderErika MD [address] [place], [place] [id number] Social History Tobacco Use Types Packs/Day Years [...] 1940 Associated Diagnoses: CAD (coronary artery disease), eagle coronary artery; Thrombocytopenia; Coronary artery disease; HTN [...] Non-distended, Normal bowel sounds. Integumentary: Warm, Dry, [place], incision is C/D/I. Neurologic: Alert, left sided [...] (Current Encounter/Past 24 Hours) PT 31.3 Second(s) [place] 11/29/2018 06:38 PTT 27.6 Second(s) 11/28/2018 08:53 INR 3.0 [place] 11/29/2018 06:38 . Impression and Plan Plan: [...] time of discharge- has sent information to [facility] -Transfer to [facility] 11/24/18 -POD#8 -Awaiting transfer to [facility] -Awaiting response from [facility] 11/25/18 -POD#9 -left upper extremity venous doppler - doppler this am positive for LUE DVT - will start coumadin and heparin bridge -awaiting [facility] 11/26/18 -POD#10 -Heparin drip and coumadin for LUE DVT -Left arm swelling improved today -INR 1.1 today, INR goal 2-3 -Possibly transfer to [facility] this weekend 11/27/18: -POD#11 -Left arm swelling continues to improve -Continues on Coumadin and heparin bridge -INR: 1.4 (1.1 yesterday) goal: 2 to 3 -[facility] soon,? Tomorrow 11/28/18: -POD#12 -BP [...] blood has been set up. -[facility] 11/29/18: -POD#13 -Upper endoscopy showed duodenal [...] D/C due to GI bleed. -Transfer to [facility] EF 55-60% per echo 11/16/18 DVT Prophylaxis: SCDs Diagnosis CAD (coronary artery disease), eagle coronary artery - Admitting, Medical. Thrombocytopenia - [...]
--- OUTSIDE RECORDS SUMMARY | 2025-05-10 12:51 | XMS_ITS | Encounter Summary ---
Author Organization [employer] ([place], [place], [place], [place]) Address [address] [place] [address] Care Team Providers Care Order Dispatcher Name Role Phone Unavailable Primary Care Provider Unavailabl e Encounter Details Date Type Department Care Team (Late st Contact Info) Description 11/22/2018 Transcribed Document [facility] [place] Medicine [address] [place] [address] ProviderErika MD [address] [place] [address] Social History Tobacco Use Types [...] Source : Measured Height Entry Format : [place] Height, Feet : 6 ft Height, Inches [...]
--- OUTSIDE RECORDS SUMMARY | 2025-05-10 12:52 | XMS_ITS | Encounter Summary ---
Author Organization [employer] ([place], [place], [place], [place]) Address [address] [place] [address] Care Team Providers Care Manager Business Banking Name Role Phone Unavailable Primary Care Provider Unavailabl e Encounter Details Date Type Department Care Team (Late st Contact Info) Description 12/01/[address] [facility] [place] Family Medicine [address] [place] [address] ProviderErika MD [address] [place] [address] Social History Tobacco Use Types [...] Jose MD - 12/01/2018 1:54 PM CDT [facility] [address] DOTTIE VILLASENOR :1940 Visit Time:11/16/2018 Your Visit Summary Your Care Team Admitting Physician - JULIO CESAR CARVALHO MD-CAT Attending Physician - JULIO CESAR CARVALHO MD-YADIRA Primary Care Physician - DEMETRICE ARMIJO NP-FAM Referring Physician - DEMETRICE ARMIJO NP-FAM Your Diagnosis Acute blood loss anemia Aortic insufficiency, Aortic insufficiency CAD (coronary artery disease), [place] coronary artery, Coronary artery disease GI [...] Your Care Team [facility] RN report #[phone] DC Summary #[phone] You may shower. Make sure your back [...] IF you have a fever greater than [address], call the surgeon. DO NOT drive for [...] Where: [address] [place] [address]- Business (1) Follow Up with JULIO CESAR CARVALHO When 12/15/2018 12:15 PM EDT Where: [address] [place] [address] Business (1) Follow Up with DEMETRICE ARMIJO When Within 1 week Comments When you are discharged from [facility] please call to make a 1 week hospital follow-up appointment. Where: [address] [place] [address]- Follow Up with JOHN BOWEN When Within 6 weeks Comments Patient should call for a follow up appointment with [facility]. Where: [address] [place] [address]- Business (1) Medications What How [...] contain harmful chemicals. FOR MORE INFORMATION ??? [place] Lung Association: www.lung.org ??? [place] Cancer Society: www.cancer.org This information is not intended to replace advice given to you by your health care provider. Make sure you discuss any questions you have with your health care provider. Document Released: 09/17/2005 Document Revised: 12/01/2016 Document Reviewed: 01/30/2014 ElseRealDeck Interactive Patient Education ?? 2017 [employer]Mob Inc. How to Take Your Blood Pressure [...] 07/23/2009 Document Revised: 08/31/2015 Document Reviewed: 10/05/2014 AdMob Interactive Patient Education ?? 2017 [employer] Inc. How to Take a Pulse Your [...] 02/14/2004 Document Revised: 02/27/2017 Document Reviewed: 01/13/2017 [employer]Mob Interactive Patient Education ?? 2017 [employer] Inc. Coronary Artery Bypass Grafting, Care After [...] 02/27/2006 Document Revised: 08/31/2015 Document Reviewed: 01/17/2014 AdMob Interactive Patient Education ?? 2017 [employer] Inc. Bleeding Precautions When on Anticoagulant Therapy [...] can be dangerous for you. ??? Many aplq-dgz-gddphde medicines for pain, colds, or stomach problems [...] provider. Document Released: 07/21/2016 Document Reviewed: 07/21/2016 [employer]Mob Interactive Patient Education ?? 2017 [employer]. Atrial Fibrillation Introduction Atrial fibrillation is a [...] Follow these instructions at home: ??? Take tlwk-psz-msmpfyz and prescription medicines only as told by [...] 09/17/2005 Document Revised: 01/15/2017 Document Reviewed: 02/10/2014 [employer]Mob Interactive Patient Education ?? 2017 [employer]. misoprostol (reji ramos) [facility] What is the most important information [...] may report side effects to FDA at 9-470-WNS-7172. What other drugs will affect misoprostol? Other drugs may interact with misoprostol, including prescription and pbpq-jyw-tkmfkng medicines, vitamins, and herbal products. Tell each [...] to ensure that the information provided by [employer]. ('Multum') is accurate, up-to-date, and complete, but no guarantee is made to that effect. Drug information contained herein may be time sensitive. [employer] information has been compiled for use by healthcare practitioners and consumers in the [place] and therefore [employer]ic[employer] does not warrant that uses outside of the [place] are appropriate, unless specifically indicated otherwise. Healthline Networkss drug information does not endorse drugs, diagnose patients or recommend therapy. Healthline [employer]s drug information is an informational resource designed [...] effective or appropriate for any given patient. [employer] does not assume any responsibility for any aspect of healthcare administered with the aid of information [employer] provides. The information contained herein is not intended to cover all possible uses, directions, precautions, warnings, drug interactions, allergic reactions, or adverse effects. If you have questions about the drugs you are taking, check with your doctor, nurse or pharmacist. Copyright 8144-9268 Sur[employer]. Version: 8.01. Revision Date: 03/02/2014.sucralfate (oral) (angelica [...] may report side effects to FDA at 2-780-NKQ-4649. What other drugs will affect sucralfate? Sucralfate can make it harder for your body to absorb other medications you take by mouth. Avoid taking any other medications within 2 hours before or after you take sucralfate. Other drugs may interact with sucralfate, including prescription and qpwg-gnn-nmhtbkk medicines, vitamins, and herbal products. Tell each [...] to ensure that the information provided by [employer]. ('Multum') is accurate, up-to-date, and complete, but no guarantee is made to that effect. Drug information contained herein may be time sensitive. [employer]icii information has been compiled for use by healthcare practitioners and consumers in the [place] and therefore [employer]icii does not warrant that uses outside of the [place] are appropriate, unless specifically indicated otherwise. Healthline Networkss drug information does not endorse drugs, diagnose patients or recommend therapy. Healthline Networkss drug information is an informational resource designed [...] effective or appropriate for any given patient. [employer] does not assume any responsibility for any aspect of healthcare administered with the aid of information Sedic[employer] provides. The information contained herein is not intended to cover all possible uses, directions, precautions, warnings, drug interactions, allergic reactions, or adverse effects. If you have questions about the drugs you are taking, check with your doctor, nurse or pharmacist. Copyright 0436-2761 Surphace. Version: 8.01. Revision Date: 01/03/2013.sucralfate (oral) (angelica [...] may report side effects to FDA at 6-976-HKM-7157. What other drugs will affect sucralfate? Sucralfate can make it harder for your body to absorb other medications you take by mouth. Avoid taking any other medications within 2 hours before or after you take sucralfate. Other drugs may interact with sucralfate, including prescription and bbxf-ups-ailampe medicines, vitamins, and herbal products. Tell each [...] to ensure that the information provided by Sur[employer]. ('Multum') is accurate, up-to-date, and complete, but no guarantee is made to that effect. Drug information contained herein may be time sensitive. Sedicii information has been compiled for use by healthcare practitioners and consumers in the [place] and therefore [employer]icii does not warrant that uses outside of the [place] are appropriate, unless specifically indicated otherwise. Healthline Networkss drug information does not endorse drugs, diagnose patients or recommend therapy. Healthline Networkss drug information is an informational resource designed [...] effective or appropriate for any given patient. [employer] does not assume any responsibility for any aspect of healthcare administered with the aid of information [facility] [employer] provides. The information contained herein is not intended to cover all possible uses, directions, precautions, warnings, drug interactions, allergic reactions, or adverse effects. If you have questions about the drugs you are taking, check with your doctor, nurse or pharmacist. Copyright 5155-5898 Surphace. Version: 8.01. Revision Date: 01/03/2013. Emergency Awareness [...] Assistance with quitting is available by contacting 5-034-YHHPMakers AcademyNOW. This is a free resource providing counseling, [...]
--- OUTSIDE RECORDS SUMMARY | 2025-05-10 12:52 | XMS_ITS | Encounter Summary ---
Author Organization [employer] ([place], [place], [place], [place]) Address [address] [place] [address] Care Team Providers Care Paper Inserter Name Role Phone Unavailable Primary Care Provider Unavailabl e Encounter Details Date Type Department Care Team (Late st Contact Info) Description 11/18/2018 Transcribed Document [facility] [place] [address] [place] [address] ProviderErika MD [address] [place] [address] Social History Tobacco Use [...] EDT Electronically signed by Christina Saini Conversion Automatic Pad Making Machine Operator Cerner at 12/08/2022 12:26 PM CDT documented in this encounter Plan of Treatment Not on file documented as of this encounter Visit Diagnoses Not on filedocumented in this encounter
--- OUTSIDE RECORDS SUMMARY | 2025-05-10 12:52 | XMS_ITS | Encounter Summary ---
Author Organization [employer] ([place], [place], [place], [place]) Address [address] [place] [address] Care Team Providers Care Home Stereo Equipment Installer Name Role Phone Unavailable Primary Care Provider Unavailabl e Encounter Details Date Type Department Care Team (Late st Contact Info) Description 12/01/2018 Transcribed Document [facility] [place] [address] [place] [address] ProviderErika MD [address] [place] [address] Social History Tobacco Use Types Packs/Day Years Used Date Smoking Tobacco: Never Assessed Sex and Gender Information Value Date Recorded Sex Assigned at Not on file Legal Sex Male 5:03 PM CDT Gender Identity Not on file Sexual Orientation Not on file documented as of this encounter Miscellaneous Notes * Cerner Conversion Note - Erika oJse MD - 12/01/2018 1:47 PM CDT Patient [...] contain harmful chemicals. FOR MORE INFORMATION ??? [place] Lung Association: www.lung.org ??? [place] Cancer Society: www.cancer.org This information is not intended to replace advice given to you by your health care provider. Make sure you discuss any questions you have with your health care provider. Document Released: 09/17/2005 Document Revised: 12/01/2016 Document Reviewed: 01/30/2014 Aviso[employer] Inc. Interactive Patient Education ? 2017 Aviso, Inc. Inc. How to Take Your Blood Pressure [...] 07/23/2009 Document Revised: 08/31/2015 Document Reviewed: 10/05/2014 ElseQuibb Interactive Patient Education ? 2017 ElseQuibb Inc. How to Take a Pulse Your [...] 02/14/2004 Document Revised: 02/27/2017 Document Reviewed: 01/13/2017 A[employer]o, Inc. Interactive Patient Education ? 2017 Aviso, Inc. Inc. Coronary Artery Bypass Grafting, Care After [...] 02/27/2006 Document Revised: 08/31/2015 Document Reviewed: 01/17/2014 ElseQuibb Interactive Patient Education ? 2017 Aviso, Inc. Inc. Bleeding Precautions When on Anticoagulant Therapy [...] can be dangerous for you. ??? Many hqmg-tcf-igdigcv medicines for pain, colds, or stomach problems [...] provider. Document Released: 07/21/2016 Document Reviewed: 07/21/2016 A[employer] Inc. Interactive Patient Education ? 2017 Aviso, Inc. Inc. Atrial Fibrillation Introduction Atrial fibrillation is [...] Follow these instructions at home: ??? Take vilr-umj-dsmeivm and prescription medicines only as told by [...] 02/10/2014 Elsevier Interactive Patient Education ? 2017 ElseQuibb Inc. documented in this encounter Plan of Treatment Not on file documented as of this encounter Visit Diagnoses Not on filedocumented in this encounter
--- OUTSIDE RECORDS SUMMARY | 2025-05-10 12:52 | XMS_ITS | Encounter Summary ---
Author Organization [employer] ([place], [place], [place], [place]) Address [address] [place] [address] Care Team Providers Care Investment Executive Name Role Phone Unavailable Primary Care Provider Unavailabl e Encounter Details Date Type Department Care Team (Late st Contact Info) Description 11/25/2018 Transcribed Document [facility] [place] [address] [place] [address] ProviderErika MD [address] [place] [address] Social History Tobacco Use Types [...] On: 11/25/2018 12:20 EDT by THERESA CAZARES [facility] Clinical Interventions Heparin Per Weight-Based Protocol : Yes THERESA CAZARES [facility] - 11/25/2018 12:20 EDT Heparin Per Weight-Based [...]
--- OUTSIDE RECORDS SUMMARY | 2025-05-10 12:52 | XMS_ITS | Encounter Summary ---
Author Organization Healthcare Address [address] [place] [address] Care Team Providers Care Barrel Rifler Broach Name Role Phone Sanjuana aVldez APRN Primary Care Provider [phone] Clifford Horner MD Primary Care Provider [phone] Encounter Details Date Type Department Care Team (Late st Contact Info) Description 06/02/2022 [facility] [address] [place] [address] Joanna Zamora, DPM [address] [place], [place] [id number] Contracture of left ankle (Primary Dx); Contracture [...] foot documented in this encounter Care Teams Barrel Rifler Broach Relationship Specialty Start Date End Date Sanjuana Valdez APRN [address] [place] [address] PCP - General 01/04/21 07/13/24 Clifford Horner MD [address] [place] [address] PCP - General 07/14/24 documented as of this encounter
--- OUTSIDE RECORDS SUMMARY | 2025-05-10 12:52 | XMS_ITS | Encounter Summary ---
Author Organization [employer] ([place], [place], [place]) Address [address] [place] [address] Care Team Providers Care Level Vial Setter Name Role Phone Unavailable Primary Care Provider Unavailabl e Encounter Details Date Type Department Care Team (Late st Contact Info) Description 11/18/2018 Transcribed Document [facility] [place] [address] [place] [address] ProviderErika MD [address] [place] [address] Social History Tobacco Use Types [...] : 11/17/2018 00:00 Atherosclerotic heart disease of [place] coronary artery without angina pectoris 11/17/2018 00:00 Essential (primary) hypertension 11/17/2018 00:00 Hypothyroidism, unspecified 11/17/2018 00:00 Nonrheumatic aortic (valve) insufficiency 11/17/2018 00:00 Restless legs syndrome 11/17/2018 00:00 Thoracic aortic aneurysm, without rupture 11/17/2018 00:00 Thrombocytopenia, unspecified 11/16/2018 00:00 Atherosclerotic heart disease of [place] coronary artery without angina pectoris 11/16/2018 00:00 [...] PT Orientation : Not oriented to time SENAI QUINTANA PTA - 11/23/2018 10:24 EDT Edu [...] SENIA QUINTANA PTA - 11/23/2018 10:24 EDT [facility] Goals Mobility/Bed Mobility LTG PT Grid Goal [...] SENIA QUINTANA PTA - 11/23/2018 10:24 EDT [place] PT Charges PT Therap. Exercise 15 min : 1 PT Ther Activities Ea 15 Min : 1 SENIA QUINTANA PTA - 11/23/2018 10:24 EDT documented in this encounter Plan of Treatment Not on file documented as of this encounter Visit Diagnoses Not on filedocumented in this encounter
--- OUTSIDE RECORDS SUMMARY | 2025-05-10 12:52 | XMS_ITS | Encounter Summary ---
Author Organization [employer] ([place], [place], [place], [place]) Address [address] [place] [address] Care Team Providers Care Third Helper Name Role Phone Unavailable Primary Care Provider Unavailabl e Encounter Details Date Type Department Care Team (Late st Contact Info) Description 11/25/2018 Transcribed Document [facility] [place] Family Medicine [address] [place] [address] ProviderErika MD [address] [place], [place] [id number] Social History Tobacco Use Types Packs/Day Years [...] 1940 Associated Diagnoses: CAD (coronary artery disease), [place] coronary artery; Thrombocytopenia; Coronary artery disease; HTN [...] left upper extremity swelling. Integumentary: Warm, Dry, [place], incision is C/D/I. Neurologic: Alert, left sided [...] of discharge- CM has sent information to [facility] -Transfer to [facility] 11/24/18 -POD#8 -Awaiting transfer to [facility] -Awaiting response from [facility] 11/25/18 -left upper extremity venous doppler - doppler this am positive for LUE DVT - will start coumadin and heparin bridge -awaiting [facility] EF 55-60% per echo 11/16/18 DVT Prophylaxis: SCDs Diagnosis CAD (coronary artery disease), [place] coronary artery - Admitting, Medical. Thrombocytopenia - [...]
--- OUTSIDE RECORDS SUMMARY | 2025-05-10 12:52 | XMS_ITS | Encounter Summary ---
Author Organization [employer] ([place], [place], [place], [place]) Address [address] [place] [address] Care Team Providers Care Foster Parent Name Role Phone Unavailable Primary Care Provider Unavailabl e Encounter Details Date Type Department Care Team (Late st Contact Info) Description 11/17/2018 Transcribed Document [facility] [place] Family Medicine [address] [place] [address] ProviderErika MD [address] [place], [place] [id number] Social History Tobacco Use Types Packs/Day Years [...] 1940 Associated Diagnoses: CAD (coronary artery disease), [place] coronary artery; Thrombocytopenia; Coronary artery disease; HTN [...] Palpable bilateral DP pulses. Integumentary: Warm, Dry, [place]. Neurologic: Not alert. Review / Management Results review: NOV 17 03:12 142 110 20 / H 115 4.1 25 1.10 \ NOV 17 03:12 \ L 10.7 / H 15.3 L 112 / L 32.1 \ Blood Gases (Current Encounter/Past 24 Hours) pH Art 7.48 KS 11/17/2018 05:17 pCO2 Art 31.2 LOW 11/17/2018 [...] 43.0 11/16/2018 12:06 pO2 Art POC 433.0 [place] 11/16/2018 12:06 HCO3 Art POC 28.5 [place] 11/16/2018 12:06 tCO2 Art POC 30.0 KS 11/16/2018 12:06 BE Art POC 4.0 KS 11/16/2018 12:06 sO2 Art POC >99.9 [place] 11/16/2018 12:06 ABG Num of Draw Attempts 1 11/17/2018 05:17 Coagulation Results (Current Encounter/Past 24 Hours) No Coagulation Results Found (Past 24 Hours) . Impression and Plan Plan: 11/17/18 -POD#1 -MTs left in place secondary to drainage EF 55-60% per echo 11/16/18 DVT Prophylaxis: SCDs Diagnosis CAD (coronary artery disease), [place] coronary artery - Admitting, Medical. Thrombocytopenia - [...]
--- OUTSIDE RECORDS SUMMARY | 2025-05-10 12:52 | XMS_ITS | Encounter Summary ---
Author Organization [employer] ([place], [place], [place], [place]) Address [address] [place] [address] Care Team Providers Care Print Production Manager Name Role Phone Unavailable Primary Care Provider Unavailabl e Encounter Details Date Type Department Care Team (Late st Contact Info) Description 11/25/2018 Transcribed Document [facility] [place] Family Medicine [address] [place] [address] ProviderErika MD [address] [place], [...] SHEENAGH E OTR/L - 11/25/2018 15:07 EDT Electronically signed by Christina Saini Conversion V Belt Mold Assembler And Curer Cerner at 12/08/2022 12:14 PM CDT documented in this encounter Plan of Treatment Not on file documented as of this encounter Visit Diagnoses Not on filedocumented in this encounter
--- OUTSIDE RECORDS SUMMARY | 2025-05-10 12:52 | XMS_ITS | Encounter Summary ---
Author Organization [employer] ([place], [place], [place], [place]) Address [address] [place] [address] Care Team Providers Care Bottom Crane Operator Name Role Phone Unavailable Primary Care Provider Unavailabl e Encounter Details Date Type Department Care Team (Late st Contact Info) Description 11/23/2018 Transcribed Document [facility] [place] [address] [place] [address] ProviderErika MD [address] [place] [address] Social History Tobacco Use Types [...]
--- OUTSIDE RECORDS SUMMARY | 2025-05-10 12:52 | XMS_ITS | Encounter Summary ---
Author Organization [employer] ([place], [place], [place], [place]) Address [address] [place] [address] Care Team Providers Care Wrapper Operator Name Role Phone Unavailable Primary Care Provider Unavailabl e Encounter Details Date Type Department Care Team (Late st Contact Info) Description 11/18/2018 Transcribed Document [facility] [place] Medicine [address] [place] [address] ProviderErika MD [address] [place] [address] Social History Tobacco Use Types [...]
--- OUTSIDE RECORDS SUMMARY | 2025-05-10 12:52 | XMS_ITS | Encounter Summary ---
Author Organization [employer] ([place], [place], [place], [place]) Address [address] [place] [address] Care Team Providers Care Pie Crimping Machine Operator Name Role Phone Unavailable Primary Care Provider Unavailabl e Encounter Details Date Type Department Care Team (Late st Contact Info) Description 11/25/2018 Transcribed Document [facility] [place] [address] [place] [address] ProviderErika MD [address] [place] [address] Social History Tobacco Use Types [...] Tab, Oral, At Bedtime saliva substitutes, 1 Cactus, Buccal, Q2H, PRN Senokot, 17.2 mg= 2 Tab, Oral, BID warfarin, 5 mg= 1 Tab, Oral, Daily Zofran, 4 mg= 2 mL, IV Push, Q4H, PRN Electronically signed by Parveen, [facility] Conversion Form Layer Cerner at 12/08/2022 12:38 PM CDT documented in this encounter Plan of Treatment Not on file documented as of this encounter Visit Diagnoses Not on filedocumented in this encounter
--- OUTSIDE RECORDS SUMMARY | 2025-05-10 12:52 | XMS_ITS | Clinical Summary ---
Author Organization [employer] ([place], [place], [place], [place]) Address [address] [place] [address] Care Team Providers Care Fbi Profiler Name Role Phone Unavailable Primary Care Provider [...]
--- OUTSIDE RECORDS SUMMARY | 2025-05-10 12:52 | XMS_ITS | Encounter Summary ---
Author Organization [employer] ([place], [place], [place], [place]) Address [address] [place] [address] Care Team Providers Care Billing Manager Name Role Phone Unavailable Primary Care Provider Unavailabl e Encounter Details Date Type Department Care Team (Late st Contact Info) Description 11/18/2018 Transcribed Document [facility] [place] [address] [place] [address] ProviderErika MD [address] [place] [address] Social History Tobacco Use Types [...] on Osmolite 1.5 @ 50m/hr + 1 [id number] daily advancing toward goal of 60ml/hr + 1 [id number] daily. No DIPPER AND DRIER consult noted, discussed if any concern for [...] midline incision; chest tube 370ml GI: LBM WELLNESS PROGRAM COORDINATOR (admit 11/16), hypoactive BS, +NGT Nutrition Support: Osmolite 1.5 @ 60ml/hr + 1 [id number] daily, water flush 10ml q1hr HT: 185cm (6'1) ADMIT WT: 79kg/174# Current Wt: 81.6kg (11/17), 82.4kg (11/18) BMI: 23 IBW: 79kg/100% EST NEEDS: 0649-4743 kcal (25-30kcal/kg), 95g pro (1.2g/kg) Bev Olvera [...] TF: Osmolite 1.5 @ 60ml/hr + 1 [id number] daily (provides 2040 kcal, 98g pro). FW per MD. goal: provide nutrition, meet est needs 2. As medically able, recommend swallow eval if appropriate; rec (cardiac) w/consistencies per DIPPER AND DRIER. RD will monitor need for supplement. goal: [...]
--- OUTSIDE RECORDS SUMMARY | 2025-05-10 12:52 | XMS_ITS | Encounter Summary ---
Author Organization [employer] ([place], [place], [place], [place]) Address [address] [place] [address] Care Team Providers Care Appliance Service Technician Name Role Phone Unavailable Primary Care Provider Unavailabl e Encounter Details Date Type Department Care Team (Late st Contact Info) Description 11/18/2018 Transcribed Document [facility] [place] Family Medicine [address] [place] [address] ProviderErika MD [address] [place] [address] Social History Tobacco Use Types Packs/Day Years Used Date Smoking Tobacco: Never Assessed Sex and Gender Information Value Date Recorded Sex Assigned at Not on file Legal Sex Male 5:03 PM CDT Gender Identity Not on file Sexual Orientation Not on file documented as of this encounter Miscellaneous Notes * Cerner Conversion Note - Historical ProviderMD - 11/18/2018 2:00 AM CDT Turpentiner Details Entered On: 11/18/2018 4:41 EDT Performed [...] EDT Electronically signed by Christina Saini Conversion Nursing Information Systems Coordinator Cerner at 12/08/2022 12:31 PM CDT documented in this encounter Plan of Treatment Not on file documented as of this encounter Visit Diagnoses Not on filedocumented in this encounter
--- OUTSIDE RECORDS SUMMARY | 2025-05-10 12:52 | XMS_ITS | Clinical Summary ---
Author Organization [facility] Address [address] [place] [phone] Phone Care Team Providers Care Hand Profiler Name Role Phone Svitlana Manley MD Primary Care Provider [phone] Social History Tobacco Use Types Packs/Day Years [...] [place] PART A AND B Care Teams Hand Profiler Relationship Specialty Start Date End Date Svitlana Manley MD [address] [place] [phone] PCP - General Family Medicine 04/10/16
--- OUTSIDE RECORDS SUMMARY | 2025-05-10 12:52 | XMS_ITS | Encounter Summary ---
Author Organization [employer] ([place], [place], [place], [place]) Address [address] [place] [address] Care Team Providers Care Solution Maker Name Role Phone Unavailable Primary Care Provider Unavailabl e Encounter Details Date Type Department Care Team (Late st Contact Info) Description 11/29/2018 Transcribed Document [facility] [place] [address] [place] [address] ProviderErika MD [address] [place] [address] Social History Tobacco Use Types [...] Ladan /Sex: 1940 Male Med Rec #: [id number] Physician: JULIO CESAR CARVALHO MD-[facility] Financial #: [id number] Pt. Type: I Room/Bed: 330/1 Admit/Disch: 11/16/18 [...] Endo PreOp Case Times Audit 11/29/18 14:12:33 Sock Knitter: ASHLEYSTAPLETON Modifier: ASHLEYSTAPLETON <+> 1 Patient Out of Preop <+> 1 Patient Ready for Surgery Finalized By: Gem Osborne Rn Document Signatures Signed By: Gem Osborne Rn 11/29/18 14:12 Electronically signed by Christina Saini Conversion Material Handling Technician Cerner at 12/08/2022 12:10 PM CDT documented in this encounter Plan of Treatment Not on file documented as of this encounter Visit Diagnoses Not on filedocumented in this encounter
--- OUTSIDE RECORDS SUMMARY | 2025-05-10 12:52 | XMS_ITS | Encounter Summary ---
Author Organization [employer] ([place], [place], [place], [place]) Address [address] [place] [address] Care Team Providers Care Manager Protein Name Role Phone Unavailable Primary Care Provider Unavailabl e Encounter Details Date Type Department Care Team (Late st Contact Info) Description 11/18/2018 Transcribed Document [facility] [place] [address] [place] [address] ProviderErika MD [address] [place] [address] Social History Tobacco Use [...] Source : Measured Height Entry Format : [place] Height, Feet : 6 ft Height, Inches [...]
--- OUTSIDE RECORDS SUMMARY | 2025-05-10 12:52 | XMS_ITS | Encounter Summary ---
Author Organization [employer] ([place], [place], [place], [place]) Address [address] [place] [address] Care Team Providers Care Tapper Helper Name Role Phone Unavailable Primary Care Provider Unavailjluiana e Encounter Details Date Type Department Care Team (Late st Contact Info) Description 11/17/2018 Transcribed Document [facility] [place] [address] [place] [address] ProviderErika MD [address] [place] [address] Social History Tobacco Use Types [...] On: 11/17/2018 11:49 EDT by Lizabeth Marti, Gray Mixing Operator Nutrition Assessment Nutrition Assessment Reason : Consult [...] wnls + sternum midline incision GI: LBM CORKING MACHINE OPERATOR, hypoactive BS, +NGT, +chest tube (1030 ml) HT: 185cm (6'1) ADMIT WT: 79kg/174# BMI: 23 IBW: 79kg/100% NFPE: insignificant EST NEEDS: 7110-6612 kcal (25-30kcal/kg), 95g pro (1.2g/kg) Lizabeth Marti [...] recommend initate po diet (cardiac) w/consitencies per ZINC SKIMMER. RD will monitor need for supplement. goal: [...]
--- OUTSIDE RECORDS SUMMARY | 2025-05-10 12:52 | XMS_ITS | Encounter Summary ---
Author Organization [employer] ([place], [place], [place], [place]) Address [address] [place] [address] Care Team Providers Care Filter Press Operator Name Role Phone Unavailable Primary Care Provider Unavailabl e Encounter Details Date Type Department Care Team (Late st Contact Info) Description 11/25/2018 Transcribed Document [facility] [place] [address] [place] [address] ProviderErika MD [address] [place] [address] Social History Tobacco Use [...]
--- OUTSIDE RECORDS SUMMARY | 2025-05-10 12:52 | XMS_ITS | Encounter Summary ---
Author Organization [employer] ([place], [place], [place], [place]) Address [address] [place] [address] Care Team Providers Care Incident Commander Name Role Phone Unavailable Primary Care Provider Unavailabl e Encounter Details Date Type Department Care Team (Late st Contact Info) Description 11/25/2018 Transcribed Document [facility] [place] [address] [place] [address] ProviderErika MD [address] [place] [address] Social History Tobacco Use Types [...]
--- OUTSIDE RECORDS SUMMARY | 2025-05-10 12:52 | XMS_ITS | Encounter Summary ---
Author Organization [employer] ([place], [place], [place], [place]) Address [address] [place] [address] Care Team Providers Care Research Geneticist Name Role Phone Unavailable Primary Care Provider Unavailabl e Encounter Details Date Type Department Care Team (Late st Contact Info) Description 12/01/2018 Transcribed Document [facility] Family Medicine [address] [place] [address] ProviderErika MD [address] [place] [address] Social History Tobacco Use Types [...]
--- OUTSIDE RECORDS SUMMARY | 2025-05-10 12:52 | XMS_ITS | Encounter Summary ---
Author Organization [employer] ([place], [place], [place], [place]) Address [address] [place] [address] Care Team Providers Care Ship [place] Pilot Name Role Phone Unavailable Primary Care Provider Unavailabl e Encounter Details Date Type Department Care Team (Late st Contact Info) Description 12/01/2018 Transcribed Document [facility] [place] [address] [place] [address] ProviderErika MD [address] [place] [address] Social History Tobacco Use Types [...]
--- OUTSIDE RECORDS SUMMARY | 2025-05-10 12:52 | XMS_ITS | Encounter Summary ---
Author Organization [email or web address] ([place], [place], [place], [place]) Address [address] [place] [address] Care Team Providers Care Extension Supervisor Name Role Phone Unavailable Primary Care Provider Unavailabl e Encounter Details Date Type Department Care Team (Late st Contact Info) Description 11/25/2018 Transcribed Document [facility] [place] [address] [place] [address] ProviderErika MD [address] [place] [address] Social History Tobacco Use Types [...] EDT Electronically signed by Christina Saini Conversion Raschel Knitting Machine Operator Felipe at 12/08/2022 12:18 PM CDT documented in this encounter Plan of Treatment Not on file documented as of this encounter Visit Diagnoses Not on filedocumented in this encounter
--- OUTSIDE RECORDS SUMMARY | 2025-05-10 12:52 | XMS_ITS | Encounter Summary ---
Author Organization [employer] ([place], [place], [place], [place]) Address [address] [place] [address] Care Team Providers Care Cloud Architect Name Role Phone Unavailable Primary Care Provider Unavailabl e Encounter Details Date Type Department Care Team (Late st Contact Info) Description 11/18/2018 Transcribed Document [facility] Cardiology [address] [place] [address] Lc Armendariz MD [address] [facility] [address] [place] [address] Social History Tobacco Use Types [...] mg, Oral, At Bedtime saliva substitutes: 1 [place], Buccal, Q2H, PRN: Other (See Comment) sodium [...] of motion, Normal strength. Integumentary: Warm, Dry, [place]. Neurologic: Alert, Oriented. Psychiatric: Cooperative, Appropriate mood & affect. Results Review NOV 18 03:37 138 106 19 / H 200 3.8 27 0.90 \ NOV 18 03:37 \ L 10.2 / H 17.7 L 103 / L 30.3 \ Cardiac Markers (Current Encounter/Past 24 Hours) No Cardiac Marker Results Found (Past 24 Hours) Radiology Results (Last 48 hours) [id number] -- 11/16/2018 06:45 CR Chest 1 Vw Portable (11/16/2018 12:55) Result: PORTABLE CHEST HISTORY: Pneumothorax.COMPARISON: 1 day prior.FINDINGS: The heart is stable in size. The patient is status post mediansternotomy. The endotracheal tube is in the mid thoracic trachea. Anasogastric tube extends below the diaphragm. Left-sided [place]-Ganzcatheter tip is in the left main pulmonary [...] day.FINDINGS: The heart is normal in size. [place]-Jovanna catheter tips in theleft pulmonary artery. There [...]
--- OUTSIDE RECORDS SUMMARY | 2025-05-10 12:52 | XMS_ITS | Clinical Summary ---
Author Organization [facility] Address [address] [place] [address] Care Team Providers Care Casing Runner Name Role Phone Clifford Horner MD Primary Care Provider [phone] Allergies No known active allergies Medications dutasteride [...] r (1 - 1-dose 75+ series) 2014 [id number] Vaccine (3 - Moderna risk series) 02/11/2021 [...] complete this topic Insurance MEDICARE Care Teams Casing Runner Relationship Specialty Start Date End Date Clifford Horner MD [address] [facility] [address] [place] [address] PCP - General 07/14/24
--- OUTSIDE RECORDS SUMMARY | 2025-05-10 12:52 | XMS_ITS | Encounter Summary ---
Author Organization [employer] ([place], [place], [place], [place]) Address [address] [place] [address] Care Team Providers Care Fish And Wildlife Biologist Name Role Phone Unavailable Primary Care Provider Unavailabl e Encounter Details Date Type Department Care Team (Late st Contact Info) Description 11/25/2018 Transcribed Document [facility] [place] [address] [place] [address] ProviderErika MD [address] [place] [address] Social History Tobacco Use [...] Time of Assessment : 11/25/2018 9:00 EDT [facility] Clinician Administering Scale : Elissa [...]
--- OUTSIDE RECORDS SUMMARY | 2025-05-10 12:52 | XMS_ITS | Encounter Summary ---
Author Organization [employer] ([place], [place], [place], [place]) Address [address] [place] [address] Care Team Providers Care Orthotic/Prosthetic Practitioner Name Role Phone Unavailable Primary Care Provider Unavailabl e Encounter Details Date Type Department Care Team (Late st Contact Info) Description 12/01/2018 Transcribed Document [facility] [place] Family Medicine [facility] [place] [address] ProviderErika MD [address] [place] [address] Social History Tobacco Use Types [...] Jose MD - 12/01/2018 1:32 PM CDT [address] [address] Patient Copy Patient Information: Name: DOTTIE VILLASENOR Current Date: 12/01/2018 13:32:25 : 1940 Patient Address: [address] [place] [phone] Patient Attending Physician: JULIO CESAR CARVALHO MD-[facility] Primary Care Provider: DEMETRICE ARMIJO NP-[facility] Primary Care Provider Discharge Diagnosis: Acute blood loss anemia; Aortic insufficiency; Coronary artery disease; GI bleed; LUE DVT (deep venous thrombosis); Right MCA CVA (cerebral vascular accident); Thoracic ascending aortic aneurysm Weight on Admission: 174 lb, 5 oz Weight at Discharge: 159 lb Comment: Follow-up Instructions: With: Address: When: DEMETRICE ARMIJO [address] [place], [place] [id number] Within 1 week Comments: When you are discharged from [facility] please call to make a 1 week hospital follow-up appointment. With: Address: When: JULIO CESAR DEY [address] [place] [address] Business (1) 1:15 PM With: Address: When: JULIO CESAR CARVALHO [address] [place] [address] Business (1) Within 2 weeks With: Address: When: JOHN BOWEN [address] [place] [address] Business (1) Within 6 weeks Comments: Patient should call for a follow up appointment with [facility] Neurology. Discharge Instructions: Driving after Discharge: Do not drive, Other: No driving or operating heavy machinery until released by a physician. Community Services: Outpt Cardiac Rehab [facility] [phone] They will call pt w/ appt time. [...] 09/17/2005 Document Revised: 01/15/2017 Document Reviewed: 02/10/2014 [employer] Patient Education ? 2017 [employer] CIGARETTE SMOKING: The facts are clear, cigarette smoking will shorten your life. Smoking can cause many illnesses along the way. As a healthcare provider, we recommend that you stop smoking. Assistance with quitting is available by contacting 1-030-DRGB-NOW. This is a free resource providing counseling, [...] Be sure to sign up for the [facility] patient portal, which gives you 16/03 access to your medical information ??? including these discharge instructions ??? using your computer, smartphone, or tablet. Just go to [employer] to get started. Questions? Call . [facility] would like to thank you for allowing us to assist you with your healthcare needs. HAMILTON Jarvis ROBERT H, (or artist's representative) have received the above patient education materials/instructions and have verbalized understanding: Patient Signature _ Date/Time Patient Forestry Professor Signature (if needed) Date/Time Clinician/Hospital Forestry Professor Signature (if needed) Date/Time documented in this encounter Plan of Treatment Not on file documented as of this encounter Visit Diagnoses Not on filedocumented in this encounter
--- OUTSIDE RECORDS SUMMARY | 2025-05-10 12:52 | XMS_ITS | Encounter Summary ---
Author Organization [employer] ([place], [place], [place], [place]) Address [address] [place] [address] Care Team Providers Care Ore Sampler Name Role Phone Unavailable Primary Care Provider Unavailabl e Encounter Details Date Type Department Care Team (Late st Contact Info) Description 11/25/2018 Transcribed Document [facility] [place] [address] [place] [address] ProviderErika MD [address] [place], [...] at goal rate. Did have BM yesterday. LAND LEASE INFORMATION CLERK okayed pt for po diet this am- [...] (11/24) BMI: 23 IBW: 79kg/100% EST NEEDS: 9551-5506 kcal (25-30kcal/kg), 95g pro (1.2g/kg) DAVION GREEN [...]
--- OUTSIDE RECORDS SUMMARY | 2025-05-10 12:52 | XMS_ITS | Encounter Summary ---
Author Organization [employer] ([place], [place], [place], [place]) Address [address] [place] [address] Care Team Providers Care Medicare Insurance Specialist Name Role Phone Unavailable Primary Care Provider Unavailabl e Encounter Details Date Type Department Care Team (Late st Contact Info) Description 12/01/2018 Transcribed Document [facility] [place] [address] [place] [address] ProviderErika MD [address] [place] [address] Social History Tobacco Use Types [...] On: 12/01/2018 13:36 EDT by NAIN JARRETT chief wheelage clerk Documentation Discharge Date/Time : 12/01/2018 15:13 EDT NAIN JARRETT RN - 12/01/2018 16:34 EDT Patient Disposition, General : Discharge Discharge To : Rehabilitation unit/facility Name of Receiving Facility/Provider : [facility] Mode Of Departure, General Discharge : [...] information provided to patient and discussed at [place]. Verbalized understanding. Worker's Compensation Paperwork Completed : NAIN Gomez RN - 12/01/2018 13:36 EDT documented in this encounter Plan of Treatment Not on file documented as of this encounter Visit Diagnoses Not on filedocumented in this encounter
--- OUTSIDE RECORDS SUMMARY | 2025-05-10 12:52 | XMS_ITS | Encounter Summary ---
Author Organization [employer] ([place], [place], [place], [place]) Address [address] [place] [address] Care Team Providers Care Family Law Mediator Name Role Phone Unavailable Primary Care Provider Unavailabl e Encounter Details Date Type Department Care Team (Late st Contact Info) Description 11/18/2018 Transcribed Document [facility] [place] Family Medicine [address] [place] [address] ProviderErika MD [address] [place] [address] Social History Tobacco Use [...] Initial Visit : Yes Referred by : Tariff Counsel initiated Referral Reason Comment : Post-op visit Ministry Provided to : Patient, Family/Significant other Voodoo Preference : Latter-Day MARCOS GASCA P - 11/18/2018 10:51 EDT [...] other supported, Relationship strengths identified Spiritual and Voodoo : Prayer shared, Spiritual/Voodoo support provided MARCOS GASCA P - 11/18/2018 10:51 EDT Electronically signed by Parveen, [facility] Conversion Light Fixture Servicer Cerner at 12/08/2022 12:34 PM CDT documented in this encounter Plan of Treatment Not on file documented as of this encounter Visit Diagnoses Not on filedocumented in this encounter
--- OUTSIDE RECORDS SUMMARY | 2025-05-10 12:52 | XMS_ITS | Encounter Summary ---
Author Organization [employer] ([place], [place], [place], [place]) Address [address] [place] [address] Care Team Providers Care Fractionation Supervisor Name Role Phone Unavailable Primary Care Provider Unavailabl e Encounter Details Date Type Department Care Team (Late st Contact Info) Description 11/18/2018 Transcribed Document [facility] [place] [address] [place] [address] ProviderErika MD [address] [place], [place] [id number] Social History Tobacco Use Types Packs/Day Years [...] 1940 Associated Diagnoses: CAD (coronary artery disease), [place] coronary artery; Thrombocytopenia; Coronary artery disease; [...] S1, S2, No edema. Integumentary: Warm, Dry, [place], incision is C/D/I. Neurologic: Alert, he did [...] Prophylaxis: SCDs Diagnosis CAD (coronary artery disease), [place] coronary artery - Admitting, Medical. Thrombocytopenia [...] Medical. Electronically signed by Parveen, [facility] Conversion Detention Officer Cerner at 12/08/2022 12:19 PM CDT documented in this encounter Plan of Treatment Not on file documented as of this encounter Visit Diagnoses Not on filedocumented in this encounter
--- OUTSIDE RECORDS SUMMARY | 2025-05-10 12:53 | XMS_ITS | Encounter Summary ---
Author Organization [email or web address] ([place], [place], [place], [place]) Address [address] [place] [address] Care Team Providers Care Ux Visual Designer Name Role Phone Unavailable Primary Care Provider Unavailabl e Encounter Details Date Type Department Care Team (Late st Contact Info) Description 11/16/2018 Transcribed Document [facility] [place] [address] [place] [address] ProviderErika MD [address] [place] [address] Social History Tobacco Use Types [...]
--- OUTSIDE RECORDS SUMMARY | 2025-05-10 12:53 | XMS_ITS | Encounter Summary ---
Author Organization [employer] ([place], [place], [place], [place]) Address [address] [place] [address] Care Team Providers Care Technician Support Engineer Name Role Phone Unavailable Primary Care Provider Unavailabl e Encounter Details Date Type Department Care Team (Late st Contact Info) Description 11/20/2018 Transcribed Document [facility] [place] Family Medicine [address] [place] [address] ProviderErika MD [address] [place] [address] Social History Tobacco Use Types [...] TORREY ZUNIGA SLP General Information Visit Type, GHOST WRITER : Initial evaluation Patient Orders : GHOST WRITER Fxnl Limitation Documentation x 1 -111 Start: 11/20/18 8:39:00 EDT - SYSTEM, SYSTEM GHOST WRITER Bedside Swallow Evaluation - Start: 11/20/18 8:38:00 EDT, Routine, For Swallow Eval and Treat -111 MICHAEL RODRIGUEZ MD Ordering Provider : MICHAEL RODRIGUEZ MD Admission Date : Admission Date/Time: 11/16/18 06:45:00 Personal Devices : Personal Devices No Devices Recorded Assistive Devices : Assistive Devices No Devices Recorded Active Diagnoses : 11/17/2018 00:00 Atherosclerotic heart disease of red devil coronary artery without angina pectoris 11/17/2018 00:00 Essential (primary) hypertension 11/17/2018 00:00 Hypothyroidism, unspecified 11/17/2018 00:00 Nonrheumatic aortic (valve) insufficiency 11/17/2018 00:00 Restless legs syndrome 11/17/2018 00:00 Thoracic aortic aneurysm, without rupture 11/17/2018 00:00 Thrombocytopenia, unspecified 11/16/2018 00:00 Atherosclerotic heart disease of red devil coronary artery without angina pectoris 11/16/2018 00:00 Nonrheumatic aortic (valve) insufficiency 11/16/2018 00:00 Thoracic aortic aneurysm, without rupture Therapy Diagnosis, GHOST WRITER : overt signs and symptoms of aspiration at bedside Previous Speech/Language Evaluations : N/A Previous Swallow Precautions : N/A Previous Cognitive Evaluations : N/A Diet/Intake Prior to Current Admission : Regular/thin Diet/Intake During Current Admission : NPO Intubation Comment, GHOST WRITER : 11/16-11/17 Vital Signs RTF : Vitals [...] : Nasal cannula 3 L/min TORREY ZUNIGA GHOST WRITER - 11/20/2018 9:21 EDT General Status Patient Received Status, GHOST WRITER : Long sitting in bed Patient Left Status, GHOST WRITER : Long sitting in bed TORREY ZUNIGA [...] Hoarse, Other: Weak Resonance Types : Appropriate GHOST WRITER Cough : Weak Facial Appearance: : Symmetrical [...] noted with thin via straw and puree. GHOST WRITER unable to determine safe diet at bedside, recommend FEES to further assess swallow function. Continue NPO with alternate means of nutrition and meds until FEES. GHOST WRITER discussed results and recs with patient and family. TORREY ZUNIGA SLP - 11/20/2018 9:26 EDT Impressions, BS Swallow : Signs/Symptoms of pharyngeal dysphagia Swallowing Outcome Measures : Functional Oral Intake Scale (FOIS) Functional Oral Intake Scale (FOIS) : Level I TORREY ZUNIGA GHOST WRITER - 11/20/2018 9:21 EDT Swallow Recommendations Recommended Diet Type, SwRec : Non-oral feeding, NPO Swallow Position, SwRec : Upright 90 degrees Recommended Med Present, SwRec : Non-oral Recommended Exam, Sw Rec : FEES Repeat Swallow Exam Timeframe : 1-3 days TORREY ZUNIGA SLP - 11/20/2018 9:26 EDT Therapy Indication Assessment GHOST WRITER Indicated : Yes GHOST WRITER Problem List : Impaired, Swallowing TORREY ZUNIGA SLP - 11/20/2018 9:26 EDT Swallow Plan/Goals Treatment Frequency, GHOST WRITER : 4 times per wk Treatment Duration, GHOST WRITER : Two weeks TORREY ZUNIGA SLP - 11/20/2018 9:26 EDT Swallow LTG Grid GHOST WRITER Jew[employer] Casting Model Maker Apprentice Goal #1 Swallow LTG : Establish safe [...] TORREY ZUNIGA SLP - 11/20/2018 9:26 EDT GHOST WRITER Education Assessment Grid 1 Diet Recommendation : Verbalizes understanding Dysphagia : Verbalizes understanding Non-Oral Nutrition : Verbalizes understanding NPO : Verbalizes understanding TORREY ZUNIGA SLP - 11/20/2018 9:26 EDT GHOST WRITER Education Assessment Grid 2 Treatment Plan : Verbalizes understanding TORREY ZUNIGA SLP - 11/20/2018 9:[address] [facility] GHOST WRITER Charges Evaluation Swallowing Function : 1 TORREY ZUNIGA SLP - 11/20/2018 9:26 EDT Functional Limitation Reporting, GHOST WRITER Functional Limitation Visit Type, GHOST WRITER : Initial evaluation Severity Determination Method, GHOST WRITER : Clinical Judgment, Swallowing Swallow G8996 - Current Mod, GHOST WRITER : 80 - 99% impaired, limited or restricted (CM) Swallow G8997 - Proj Goal Mod, GHOST WRITER : 1 - 19% impaired, limited or restricted (CI) TORREY ZUNIGA SLP - 11/20/2018 9:26 EDT Electronically signed by Parveen [facility] Conversion Contracts Advisor Cerner at 12/08/2022 12:30 PM CDT documented in this encounter Plan of Treatment Not on file documented as of this encounter Visit Diagnoses Not on filedocumented in this encounter
--- OUTSIDE RECORDS SUMMARY | 2025-05-10 12:53 | XMS_ITS | Encounter Summary ---
Author Organization [employer] ([place], [place], [place], [place]) Address [address] [place] [address] Care Team Providers Care Equipment Driver Name Role Phone Unavailable Primary Care Provider Unavailabl e Encounter Details Date Type Department Care Team (Late st Contact Info) Description 11/28/2018 Transcribed Document [facility] [place] [address] [place] [address] ProviderErika MD [address] [place], [...] Admission Diagnosis : Atherosclerotic heart disease of sun'aq coronary artery without angina pectoris Atherosclerotic heart disease of sun'aq coronary artery without angina pectoris Cerebral infarction, [...] change in location/level of care Rapid Response Equipment Driver #1 : COREY MACHUCA, RN COREY MACHUCA, RN - 11/28/2018 4:37 EDT Electronically signed by Parveen [facility] Conversion Motorcycle Repair Shop Supervisor Cerner at 12/08/2022 12:39 PM CDT documented in this encounter Plan of Treatment Not on file documented as of this encounter Visit Diagnoses Not on filedocumented in this encounter
--- OUTSIDE RECORDS SUMMARY | 2025-05-10 12:53 | XMS_ITS | Encounter Summary ---
Author Organization [employer] ([place], [place], [place], [place]) Address [address] [place] [address] Care Team Providers Care Auto Clutch Rebuilder Name Role Phone Unavailable Primary Care Provider Unavailabl e Encounter Details Date Type Department Care Team (Late st Contact Info) Description 12/01/2018 Transcribed Document [facility] [place] Family Medicine [address] [place] [address] ProviderErika MD [address] [place] [address] Social History Tobacco Use Types [...] Jose MD - 12/01/2018 3:00 PM CDT [facility] [place] [address] VILLASENOR DOTTIE Pickering :1940 Visit Time:11/16/2018 Your Visit Summary Your Care Team Admitting Physician - JULIO CESAR CARVALHO MD-CAT Attending Physician - JULIO CESAR CARVALHO MD-YADIRA Primary Care Physician - DEMETRICE ARMIJO NP-FAM Referring Physician - DEMETRICE ARMIJO NP-FAM Your Diagnosis Acute blood loss anemia Aortic insufficiency, Aortic insufficiency CAD (coronary artery disease), [place] coronary artery, Coronary artery disease GI bleed [...] do next Instructions From Your Care Team [facility]-Stroke Unit RN report #[phone] DC Summary #[phone] You may shower. Make sure your back [...] IF you have a fever greater than [address], call the surgeon. DO NOT drive for [...] Where: [address] [place] [address]- Business (1) Follow Up with JULIO CESAR CARVALHO When 12/15/2018 12:15 PM EDT Where: [address] [place] [address] Business (1) Follow Up with DEMETRICE ARMIJO When Within 1 week Comments When you are discharged from [facility] please call to make a 1 week hospital follow-up appointment. Where: [address] [place] [address]- Follow Up with JOHN BOWEN When Within 6 weeks Comments Patient should call for a follow up appointment with [facility] Neurology. Where: [address] [place] [address]- Business (1) Medications What How [...] contain harmful chemicals. FOR MORE INFORMATION ??? [place] [employer]: www.lung.org ??? [place] [employer]: www.cancer.org This information is not intended to replace advice given to you by your health care provider. Make sure you discuss any questions you have with your health care provider. Document Released: 09/17/2005 Document Revised: 12/01/2016 Document Reviewed: 01/30/2014 [employer] Interactive Patient Education ?? 2017 [employer]. How to Take Your Blood Pressure HOW [...] 02/14/2004 Document Revised: 02/27/2017 Document Reviewed: 01/13/2017 [employer] Interactive Patient Education ?? 2017 [employer]. Coronary Artery Bypass Grafting, Care After [...] 02/27/2006 Document Revised: 08/31/2015 Document Reviewed: 01/17/2014 [employer] Interactive Patient Education ?? 2017 [employer]. Bleeding Precautions When on Anticoagulant Therapy [...] can be dangerous for you. ??? Many sdhm-dil-fssepjs medicines for pain, colds, or stomach problems [...] provider. Document Released: 07/21/2016 Document Reviewed: 07/21/2016 [employer] Interactive Patient Education ?? 2017 [employer]. Atrial Fibrillation Introduction Atrial fibrillation is [...] Follow these instructions at home: ??? Take lxlx-tlb-ntdrovm and prescription medicines only as told by [...] 09/17/2005 Document Revised: 01/15/2017 Document Reviewed: 02/10/2014 [employer] Interactive Patient Education ?? 2017 [employer]. misoprostol (reji ramos) [facility] What is the most important information [...] disease; or ?? if you are dehydrated. [facility] category X. Misoprostol can cause defects, [...] may report side effects to FDA at 7-781-YLQ-3630. What other drugs will affect misoprostol? Other drugs may interact with misoprostol, including prescription and qqrr-icm-lvfwyvo medicines, vitamins, and herbal products. Tell each [...] to ensure that the information provided by [employer]. ('[employer]') is accurate, up-to-date, and complete, but no guarantee is made to that effect. Drug information contained herein may be time sensitive. [employer]um information has been compiled for use by healthcare practitioners and consumers in the [place] and therefore [employer] does not warrant that uses outside of the [place] are appropriate, unless specifically indicated otherwise. [employer] drug information does not endorse drugs, diagnose patients or recommend therapy. [employer] drug information is an informational resource designed [...] effective or appropriate for any given patient. [facility] does not assume any responsibility for any aspect of healthcare administered with the aid of information [facility] provides. The information contained herein is not intended to cover all possible uses, directions, precautions, warnings, drug interactions, allergic reactions, or adverse effects. If you have questions about the drugs you are taking, check with your doctor, nurse or pharmacist. Copyright 8854-4528 [facility]. Version: 8.01. Revision Date: 03/02/2014.sucralfate (oral) [...] may report side effects to FDA at 2-602-UBM-5580. What other drugs will affect sucralfate? Sucralfate can make it harder for your body to absorb other medications you take by mouth. Avoid taking any other medications within 2 hours before or after you take sucralfate. Other drugs may interact with sucralfate, including prescription and nili-iww-eqbwkzj medicines, vitamins, and herbal products. Tell each [...] to ensure that the information provided by [employer]. ('[employer]') is accurate, up-to-date, and complete, but no guarantee is made to that effect. Drug information contained herein may be time sensitive. [employer] information has been compiled for use by healthcare practitioners and consumers in the [place] and therefore [employer] does not warrant that uses outside of the [place] are appropriate, unless specifically indicated otherwise. [employer] drug information does not endorse drugs, diagnose patients or recommend therapy. [employer] drug information is an informational resource designed [...] effective or appropriate for any given patient. [employer] does not assume any responsibility for any aspect of healthcare administered with the aid of information [employer] provides. The information contained herein is not intended to cover all possible uses, directions, precautions, warnings, drug interactions, allergic reactions, or adverse effects. If you have questions about the drugs you are taking, check with your doctor, nurse or pharmacist. Copyright 0674-0493 [employer]. Version: 8.01. Revision Date: 01/03/2013.sucralfate (oral) (angelica [...] may report side effects to FDA at 7-146-NYB-8038. What other drugs will affect sucralfate? Sucralfate can make it harder for your body to absorb other medications you take by mouth. Avoid taking any other medications within 2 hours before or after you take sucralfate. Other drugs may interact with sucralfate, including prescription and jzpp-ufy-ftoerty medicines, vitamins, and herbal products. Tell each [...] to ensure that the information provided by [employer]. ('[employer]') is accurate, up-to-date, and complete, but no guarantee is made to that effect. Drug information contained herein may be time sensitive. [employer] information has been compiled for use by healthcare practitioners and consumers in the [place] and therefore [employer] does not warrant that uses outside of the [place] are appropriate, unless specifically indicated otherwise. [employer] drug information does not endorse drugs, diagnose patients or recommend therapy. [employer] drug information is an informational resource designed [...] effective or appropriate for any given patient. [facility] does not assume any responsibility for any aspect of healthcare administered with the aid of information [facility] provides. The information contained herein is not intended to cover all possible uses, directions, precautions, warnings, drug interactions, allergic reactions, or adverse effects. If you have questions about the drugs you are taking, check with your doctor, nurse or pharmacist. Copyright 6609-3883 [employer]. Version: 8.01. Revision Date: 01/03/2013. Emergency Awareness [...] Assistance with quitting is available by contacting 9-502-NFIL-NOW. This is a free resource providing counseling, [...]
--- OUTSIDE RECORDS SUMMARY | 2025-05-10 12:53 | XMS_ITS | Encounter Summary ---
Author Organization [employer] ([place], [place], [place], [place]) Address [address] [place] [address] Care Team Providers Care Taker Down Name Role Phone Unavailable Primary Care Provider Unavailabl e Encounter Details Date Type Department Care Team (Late st Contact Info) Description 11/24/2018 Transcribed Document [facility] [place] [address] [place] [address] ProviderErika MD [address] [place] [address] Social History Tobacco Use Types [...] EDT Electronically signed by Christina Saini [employer]version [employer] Laboratory Director Cerner at 12/08/2022 12:32 PM CDT documented in this encounter Plan of Treatment Not on file documented as of this encounter Visit Diagnoses Not on filedocumented in this encounter
--- OUTSIDE RECORDS SUMMARY | 2025-05-10 12:53 | XMS_ITS | Encounter Summary ---
Author Organization [employer] ([place], [place], [place], [place]) Address [address] [place] [address] Care Team Providers Care Log Check Scaler Name Role Phone Unavailable Primary Care Provider Unavailabl e Encounter Details Date Type Department Care Team (Late st Contact Info) Description 11/28/2018 Transcribed Document [facility] [place] Family Medicine [address] [place] [address] ProviderErika MD [address] [place] [address] Social History Tobacco Use Types [...]
--- OUTSIDE RECORDS SUMMARY | 2025-05-10 12:53 | XMS_ITS | Encounter Summary ---
Author Organization [employer] ([place], [place], [place], [place]) Address [address] [place] [address] Care Team Providers Care Negative Retoucher Name Role Phone Unavailable Primary Care Provider Unavailabl e Encounter Details Date Type Department Care Team (Late st Contact Info) Description 11/16/2018 Transcribed Document [facility] [place] [address] [place] [address] ProviderErkia MD [address], [place] [id number] Social History Tobacco Use Types Packs/Day Years [...] All Problems Prostate stricture / SNOMED CT 63295844 / Confirmed Restless legs syndrome / SNOMED CT 65670766 / Confirmed Nocturia / SNOMED CT 019758393 / Confirmed Cancer of skin of face / SNOMED CT 1624418302 / Confirmed Frequent urination / SNOMED CT 942436545 / Confirmed Hypothyroidism / SNOMED CT 56212785 / Confirmed HTN - Hypertension / SNOMED CT 6121939560 / Confirmed Disorder of prostate ( enlarged) / SNOMED CT 54355444 / Confirmed CAD (coronary artery disease) / SNOMED CT 40975262 / Confirmed At risk for sleep apnea / IMO 26841977 / Confirmed Arthritis / SNOMED CT 3168886 / Confirmed Aortic valve insufficiency / SNOMED CT 053969844 / Confirmed Aneurysm, thoracic aortic / SNOMED CT 5072002734 / Confirmed, Active Problems (13) Aneurysm, thoracic aortic Aortic valve insufficiency Arthritis At risk for sleep apnea CAD (coronary artery disease) Cancer of skin of face Disorder of prostate ( enlarged) Frequent urination HTN - Hypertension Hypothyroidism Nocturia Prostate stricture Restless legs syndrome Histories Past Medical History: Active HTN - Hypertension (0357942137) Hypothyroidism (32572638) Family History: Entire family history is negative. [...] EDT Height Source Measured Height Entry Format [place] Height/Length, MACEDONIAN (ft) 6 ft Height/Length MACEDONIAN 1 Inch CLINICALHEIGHT 185.42 cm P[place]ys Body Weight 79 kg Weight Source Standing scale Weight Entry Format [place] Weight Nigerian lb 174 lb Weight Nigerian oz 5 oz CLINICALWEIGHT 79.23 kg Body [...] of motion, Normal strength. Integumentary: Warm, Dry, Ferdinand. Neurologic: Alert, Oriented. Psychiatric: Cooperative, Appropriate mood [...] % 32.4 % Lymph # 2.32 x10(3)/uL [place] % 9.5 % HI [place] # 0.68 K/uL Eos % 1.1 % [...] Color Yellow Urine Appearance Clear Urine Specific [place] 1.016 Urine pH Dipstick 6.5 Urine Leukocyte [...]
--- OUTSIDE RECORDS SUMMARY | 2025-05-10 12:53 | XMS_ITS | Encounter Summary ---
Author Organization [employer] ([place], [place], [place], [place]) Address [address] [place] [address] Care Team Providers Care Energy Manager Name Role Phone Unavailable Primary Care Provider Unavailabl e Encounter Details Date Type Department Care Team (Late st Contact Info) Description 11/20/2018 Transcribed Document [facility] [place] Family Medicine [address] [place] [address] ProviderErika MD [address] [id number] Social History Tobacco Use Types Packs/Day Years [...] Routine HEENT saliva substitutes - 1 [place], Buccal, Liquid, Q2H, PRN for Other (See [...] Radiology results Radiology Results (Last 48 hours) [id number] -- 11/16/2018 06:45 CR Chest 1 Vw [...] Shortness of breathCOMPARISON: 1 day priorFINDINGS: A Livingston-Jovanna catheter tip terminates in the SVC. The Livingston-Ganzcatheter has been retracted. The cardiac silhouette is [...]
--- OUTSIDE RECORDS SUMMARY | 2025-05-10 12:53 | XMS_ITS | Encounter Summary ---
Author Organization [facility] ([place], [place], [place], [place]) Address [address] [place] [address] Care Team Providers Care Greenhouse Specialist Name Role Phone Unavailable Primary Care Provider Unavailabl e Encounter Details Date Type Department Care Team (Late st Contact Info) Description 11/28/2018 Transcribed Document [facility] [place] [address] [place] [address] ProviderErika MD [address] [place] [address] Social History Tobacco Use Types Packs/Day Years Used Date Smoking Tobacco: Never Assessed Sex and Gender Information Value Date Recorded Sex Assigned at Not on file Legal Sex Male 5:03 PM CDT Gender Identity Not on file Sexual Orientation Not on file documented as of this encounter Miscellaneous Notes * Cerner Conversion Note - Erika ProviderMD - 11/28/2018 10:19 AM CDT [facility] Main OR IntraOp Summary Primary Physician: SAMAN BERNSTEIN MD-GAE Finalized Date/Time: 11/30/18 09:14:16 Pt. Name: DOTTIE VILLASEONR D.O.B./Sex: 1940 Male Med Rec #: [id number] Physician: JULIO CESAR CARVALHO MD-[facility] Financial #: [id number] Pt. Type: I Room/Bed: [facility]/1 Admit/Disch: 11/16/18 06:45:00 - Institution: [facility] IntraOp Case Attendance Entry 1 Entry 2 Entry 3 Case Attendee SAMAN BERNSTEIN MD-SALMA GARCIA MD WURTELE, JOHN L. Role Performed Surgeon/Proceduralist, Anesthesiologist Endocrinologist, Ancillary First Time In 11/28/18 10:10:00 11/28/18 10:10:00 11/28/18 10:10:00 Time Out 11/28/18 10:35:00 11/28/18 10:35:00 11/28/18 10:35:00 Procedure Esophagogastroduodenosco Esophagogastroduodenosco Esophagogastroduodenosco py py py Other Attendee Superficial Wound Closed By: Last Modified By: Sukumar Casanova, Sukumar Gibbs, Sukumar Gibbs RN 11/28/18 11:00:07 11/28/18 11:00:07 11/28/18 11:00:07 Entry 4 Entry 5 Case Attendee Dianne Garcia, Sukumar Gibbs, TONJA Role Performed Managed Care Analyst, First Managed Care Analyst, Second Time In 11/28/18 10:10:00 11/28/18 10:10:00 Time Out 11/28/18 10:35:00 11/28/18 10:35:00 Procedure Esophagogastroduodenosco Esophagogastroduodenosco py py Other Attendee Superficial Wound Closed By: Last Modified By: Sukumar Casanova, Sukumar Gibbs RN 11/28/18 11:00:07 11/28/18 11:00:07 [facility] IntraOp Case Attendance Audit 11/28/18 11:00:07 Electrical Instrument Technician: ANDRADES Modifier: PANTANOS 1 <+> Time Out 1 <*> Procedure Esophagogastroduodenoscopy 2 <+> Time Out 2 <*> Procedure Esophagogastroduodenoscopy 3 <+> Time Out 3 <*> Procedure Esophagogastroduodenoscopy 4 <+> Time Out 4 <*> Procedure Esophagogastroduodenoscopy 5 <+> Time Out 5 <*> Procedure Esophagogastroduodenoscopy 11/28/18 10:20:36 Electrical Instrument Technician: FABIANAANOS Modifier: PANTANOS <+> 1 Procedure 2 <+> Time In 2 <*> Procedure Esophagogastroduodenoscopy 3 <+> Time In 3 <*> Procedure Esophagogastroduodenoscopy 4 <+> Time In 4 <*> Procedure Esophagogastroduodenoscopy 5 <+> Time In 5 <*> Procedure Esophagogastroduodenoscopy [facility] IntraOp Case Times Entry 1 Patient In Room Time 11/28/18 10:10:00 Out Room Time 11/28/18 10:35:00 Anesthesia Start Time 11/28/18 10:10:00 Stop Time 11/28/18 10:35:00 Surgery / Procedure Times Start Time 11/28/18 10:19:00 Stop Time 11/28/18 10:33:00 Last Modified By: Sukumar Casanova RN 11/28/18 10:59:40 [facility] IntraOp Case Times Audit 11/28/18 10:59:40 Electrical Instrument Technician: PANTANOS Modifier: PANTANOS <+> 1 Out Room Time <+> 1 Stop Time <+> 1 Stop Time 11/28/18 10:22:00 Electrical Instrument Technician: PANTANOS Modifier: PANTANOS <+> 1 Start Time [facility] IntraOp Departure from OR Entry 1 Integumentary Assessment Transfer/Handoff Transfer to PACU Phase I Handoff Method Bedside/Face to face, Online nursing summary Post-op Transport Stretcher/Gurney Via Patient Transport Sukumar Casanova RN, Accompanied by SALMA MARROQUIN MD Last Modified By: Sukumar Casanova RN 11/28/18 10:25:50 [facility] IntraOp Departure from OR Audit 11/28/18 10:25:50 Electrical Instrument Technician: FABIANAANOS Modifier: PANTANOS 1 <*> Patient Transport Accompanied by Sukumar Casanova RN [facility] IntraOp Fire Risk Assessment Entry [...] Modified By: Sukumar Casanova RN 11/28/18 10:15:58 [facility] IntraOp General Case Sales Vendor 1 Case Information OR OR [facility] Case Level 1 Room Verified Yes Wound Class II - Clean-Contaminated Specialty SN Gastroenterology Anesthesia Type General ASA Class 4E Diagnosis Preop Diagnosis GASTRIC BLEED Postop Same As Preop Yes Postop Diagnosis GASTRIC BLEED Last Modified By: Sukumar Casanova RN 11/28/18 10:18:38 [facility] IntraOp General Case Data Audit 11/28/18 10:18:38 Electrical Instrument Technician: WILL Modifier: PANTANOS <+> 1 Postop Same As Preop <+> 1 Preop Diagnosis <+> 1 Postop Diagnosis [facility] IntraOp Intraoperative Assessment Entry 1 [...] Modified By: Sukumar Casanova RN 11/28/18 10:21:06 [facility] IntraOp Intraoperative Equipment Entry 1 Type Monitoring Equipment Intraop Monitoring Electrocardiogram Three lead placement (ECG) Electrode Placement Blood Pressure Non-Invasive BP Device Source Blood Pressure Arm, right upper Location Pulse Oximeter Hand, left Probe Site Antiembolic Devices Scopes Photo/Video Documentation Last Modified By: Sukumar Casanova RN 11/28/18 10:21:34 [facility] IntraOp Patient Positioning Entry 1 [...] Modified By: Sukumar Casanova RN 11/28/18 10:20:33 [facility] IntraOp Sign In Entry 1 [...] Modified By: Sukumar Casanova RN 11/28/18 10:22:31 [facility] IntraOp Sign Out Entry 1 [...] Modified By: Sukumar Casanova RN 11/28/18 11:00:01 [facility] IntraOp Sign Out Audit 11/28/18 11:00:01 Electrical Instrument Technician: WILL Modifier: WILL <+> 1 RN Sign Out Signature Date/Time [facility] IntraOp Surgical Procedures Entry 1 Procedure Esophagogastroduodenosco py Additional (EGD WITH CONTROL OF Procedure BLEEDING) Description Primary Procedure Yes Primary Surgeon SAMAN BERNSTEIN MD-TAO Start 11/28/18 10:19:00 Stop 11/28/18 10:33:00 Anesthesia Type General Specialty SN Gastroenterology Wound Class II - Clean-Contaminated Last Modified By: Sukumar Casanova RN 11/28/18 10:59:52 [facility] IntraOp Surgical Procedures Audit 11/28/18 10:59:52 Electrical Instrument Technician: WILL Modifier: WILL 1 <*> Procedure Esophagogastroduodenoscopy 1 <+> Specialty 11/28/18 10:59:43 Electrical Instrument Technician: WILL Modifier: WILL <+> 1 Start <+> 1 Stop [facility] IntraOp Temp Regulation Devices Entry 1 Temp Regulation Temperature Warm blankets Regulation Device Temperature Full body Regulation Site Last Modified By: Sukumar Casanova RN 11/28/18 10:26:13 [facility] IntraOP Time Out Entry 1 [...] Modified By: Sukumar Casanova RN 11/28/18 10:21:53 [facility] IntraOP Time Out Audit 11/28/18 10:21:53 Electrical Instrument Technician: WILL Modifier: WILL 1 <+> Time Out Pause Time 1 <*> Procedure to be Performed Esophagogastroduodenoscopy Case Comments <None> Finalized By: JODI PITT Document Signatures Signed By: Sukumar Casanova RN 11/28/18 11:00 JODI PITT 11/30/18 09:14 Unfinalized History Date/Time Username Reason for Unfinalizing Freetext Reason for Unfinalizing 11/30/18 09:13 [email or web address] Correct Billing Electronically signed by Parveen [facility] Conversion Transit Manager Cerner at 12/08/2022 12:19 PM CDT documented in this encounter Plan of Treatment Not on file documented as of this encounter Visit Diagnoses Not on filedocumented in this encounter
--- OUTSIDE RECORDS SUMMARY | 2025-05-10 12:53 | XMS_ITS | Encounter Summary ---
Author Organization [employer] ([place], [place], [place], [place]) Address [address] [place] [address] Care Team Providers Care Silk Blocker Name Role Phone Unavailable Primary Care Provider Unavailabl e Encounter Details Date Type Department Care Team (Late st Contact Info) Description 11/16/2018 Transcribed Document [facility] [address] [place] [address] ProviderErika MD [address], [place] [id number] Social History Tobacco Use Types Packs/Day Years [...] Medical. Performed by: JULIO CESAR CARVALHO MD-CAT. Data Integration Developer: ERASMO LÓPEZ PA. Notes: Procedure: Resection and [...]
--- OUTSIDE RECORDS SUMMARY | 2025-05-10 12:53 | XMS_ITS | Encounter Summary ---
Author Organization [employer] ([place], [place], [place], [place]) Address [address] [place] [address] Care Team Providers Care Rn Field Name Role Phone Unavailable Primary Care Provider Unavailabl e Encounter Details Date Type Department Care Team (Late st Contact Info) Description 11/24/2018 Transcribed Document [facility] [place] [address] [place] [address] ProviderErika MD [address] [place] [address] Social History Tobacco Use Types [...]
--- OUTSIDE RECORDS SUMMARY | 2025-05-10 12:53 | XMS_ITS | Encounter Summary ---
Author Organization [employer] ([place], [place], [place], [place]) Address [address] [place] [address] Care Team Providers Care Child Protective Investigator Name Role Phone Unavailable Primary Care Provider Unavailabl e Encounter Details Date Type Department Care Team (Late st Contact Info) Description 11/24/2018 Transcribed Document [facility] [place] [address] [place] [address] ProviderErika MD [address] [place] [address] Social History Tobacco Use Types [...]
--- OUTSIDE RECORDS SUMMARY | 2025-05-10 12:53 | XMS_ITS | Encounter Summary ---
Author Organization [employer] ([place], [place], [place], [place]) Address [address] [place] [address] Care Team Providers Care Retail Reset Merchandiser Name Role Phone Unavailable Primary Care Provider Unavailabl e Encounter Details Date Type Department Care Team (Late st Contact Info) Description 12/01/2018 Transcribed Document [facility] [place] [address] [place] [address] ProviderErika MD [address] [place] [address] Social History Tobacco Use Types [...]
--- OUTSIDE RECORDS SUMMARY | 2025-05-10 12:53 | XMS_ITS | Encounter Summary ---
Author Organization [employer] ([place], [place], [place], [place]) Address [address] [place] [address] Care Team Providers Care Online Merchandiser Name Role Phone Unavailable Primary Care Provider Unavailabl e Encounter Details Date Type Department Care Team (Late st Contact Info) Description 12/01/2018 Transcribed Document [facility] [place] Family Medicine [address] [place] [address] ProviderErika MD [address] [place], [place] [id number] Social History Tobacco Use Types Packs/Day Years [...] 1940 Associated Diagnoses: CAD (coronary artery disease), [place] coronary artery; Thrombocytopenia; Coronary artery disease; HTN [...] No complaints, transferred back to [facility] yesterday 12/01/18: Up to chair today, hopefully to [facility] today Review of Systems Constitutional: Weakness. Respiratory: [...] Musculoskeletal: left arm swelling. Integumentary: Warm, Dry, [place], incision is C/D/I. Neurologic: Alert, left [...] (Current Encounter/Past 24 Hours) PT 14.6 Second(s) [place] 12/01/2018 06:53 INR 1.4 [place] 12/01/2018 06:53 . Impression and Plan Plan: [...] time of discharge- has sent information to [facility] -Transfer to [facility] 11/24/18 -POD#8 -Awaiting transfer to [facility] -Awaiting response from [facility] 11/25/18 -POD#9 -left upper extremity venous doppler - doppler this am positive for LUE DVT - will start coumadin and heparin bridge -awaiting [facility] 11/26/18 -POD#10 -Heparin drip and coumadin for LUE DVT -Left arm swelling improved today -INR 1.1 today, INR goal 2-3 -Possibly transfer to [facility] this weekend 11/27/18: -POD#11 -Left arm swelling continues to improve -Continues on Coumadin and heparin bridge -INR: 1.4 (1.1 yesterday) goal: 2 to 3 -[facility] soon,? Tomorrow 11/28/18: -POD#12 -BP in 70s-80s this AM -He had a dark black stool and has had a couple of fluid boluses -Heparin was D/C'd and his INR is 2.0 this AM (on coumadin 5mg qd) -Hct is down to 23.6 -GI med has been consulted and he is to undergo EGD -Also some blood has been set up. -Transferred to [facility] 11/29/18: -POD#13 -Upper endoscopy showed duodenal [...] D/C due to GI bleed. -Transfer to [facility] 11/30/18 POD # 14 EGD yesterday - duodenal ulceration with clot, no active bleeding and no intervention performed INR trending down, off coumadin and heparin Speech signed off yesterday - speech and cognition back to baseline Watch INR and H&[facility] upon discharge 12/01/18 POD # 15 Bed available at [facility] today\.brTH stable, INR 1.4 EF 55-60% per echo 11/16/18 DVT Prophylaxis: SCDs Diagnosis CAD (coronary artery disease), [place] coronary artery - Admitting, Medical. Thrombocytopenia - [...] - Discharge, Medical. Electronically signed by Parveen [facility] Conversion Printing Table Worker Cerner at 12/08/2022 12:20 PM CDT documented in this encounter Plan of Treatment Not on file documented as of this encounter Visit Diagnoses Not on filedocumented in this encounter
--- OUTSIDE RECORDS SUMMARY | 2025-05-10 12:53 | XMS_ITS | Encounter Summary ---
Author Organization [employer] ([place], [place], [place], [place]) Address [address] [place] [address] Care Team Providers Care Instrument Technician Helper Name Role Phone Unavailable Primary Care Provider Unavailabl e Encounter Details Date Type Department Care Team (Late st Contact Info) Description 11/23/2018 Transcribed Document [facility] [place] [address] [place] [address] ProviderErika MD [address] [place] [address] Social History Tobacco Use Types [...]
--- OUTSIDE RECORDS SUMMARY | 2025-05-10 12:53 | XMS_ITS | Encounter Summary ---
Author Organization [employer] ([place], [place], [place], [place]) Address [address] [place] [address] Care Team Providers Care Learning And Development Associate Name Role Phone Unavailable Primary Care Provider Unavailabl e Encounter Details Date Type Department Care Team (Late st Contact Info) Description 11/15/2018 Transcribed Document [facility] [place] Family Medicine [address] [place] [address] ProviderErika MD [address] [place] [address] Social History Tobacco Use Types [...] Source : Measured Height Entry Format : [place] Height, Feet : 6 ft(Converted to: 183 cm, 72 Inch) Height, Inches : 1 Inch(Converted to: 0 ft 1 Inch, 2.54 cm) Clinical Height : 185.42 cm Weight Source : Standing scale Weight Entry Format : [place] Clinical Dosing Weight : 79.23 kg Weight, Pounds : 174 lb Weight, Ounces : 5 oz Body Surface Area (BSA) : 2.03 m2 Body Mass Index : 23 kg/m2 [place] Body Weight : 79 kg ANGELA KEY [...] Ambulatory Legal Guardian : Spouse Support Person/Patient Reconciling Clerk : Yes Support Person/Pt Rep Name : Connie- Sumeet - son Support Person/Pt Rep Contact Information : [phone] home [phone] - cell Want Family/Rep/Phys Notified of Admit : No Emergency Contact #1 : Connie Emergency Contact #1 Emergency Contact #1 Relationship : Emergency Contact #2 : Sumeet Emergency Contact #2 Emergency Contact #2 Relationship : son Information Obtained From : Patient, Medical Record Primary Language : Syriac Preferred Communication Mode : Verbal Communication Barrier [...] 11/15/2018 13:52 EDT Electronically signed by Parveen [facility] Conversion Wallpaper Inspector And Shipper Cerner at 12/08/2022 12:30 PM CDT documented in this encounter Plan of Treatment Not on file documented as of this encounter Visit Diagnoses Not on filedocumented in this encounter
--- OUTSIDE RECORDS SUMMARY | 2025-05-10 12:53 | XMS_ITS | Encounter Summary ---
Author Organization [employer] ([place], [place], [place], [place]) Address [address] [place] [address] Care Team Providers Care Registered Nurse Cardiac Name Role Phone Unavailable Primary Care Provider Unavailabl e Encounter Details Date Type Department Care Team (Late st Contact Info) Description 11/16/2018 Transcribed Document [facility] [place] Family Medicine [address] [place] [address] ProviderErika MD [address] [place] [address] Social History Tobacco Use Types [...] form. Electronically signed by Christina Saini Conversion Computer Programming Professor Cerner at 12/08/2022 12:14 PM CDT documented in this encounter Plan of Treatment Not on file documented as of this encounter Visit Diagnoses Not on filedocumented in this encounter
--- OUTSIDE RECORDS SUMMARY | 2025-05-10 12:53 | XMS_ITS | Encounter Summary ---
Author Organization [employer] ([place], [place], [place], [place]) Address [address] [place] [address] Care Team Providers Care Dealer Sales Manager Name Role Phone Unavailable Primary Care Provider Unavailabl e Encounter Details Date Type Department Care Team (Late st Contact Info) Description 11/24/2018 Transcribed Document [facility] [place] [address] [place] [address] ProviderErika MD [address] [place] [address] Social History Tobacco Use Types [...] Bed scale Routine Weight Entry Format : [place] Routine Weight, Pounds : 180 lb Routine Weight, Ounces : 8 oz Routine Weight Calculation : 82.05 kg Height Source : Measured Height Entry Format : [place] Height, Feet : 6 ft Height, Inches [...]
--- OUTSIDE RECORDS SUMMARY | 2025-05-10 12:53 | XMS_ITS | Encounter Summary ---
Author Organization [employer] ([place], [place], [place], [place]) Address [address] [place] [address] Care Team Providers Care Core Machine Operator Name Role Phone Unavailable Primary Care Provider Unavailabl e Encounter Details Date Type Department Care Team (Late st Contact Info) Description 11/28/2018 Transcribed Document [facility] [place] [address] [place] [address] ProviderErika MD [address] [place], [place] [phone] Social History Tobacco Use Types Packs/Day Years Used Date Smoking Tobacco: Never Assessed Sex and Gender Information Value Date Recorded Sex Assigned at Not on file Legal Sex Male 5:03 PM CDT Gender Identity Not on file Sexual Orientation Not on file documented as of this encounter Miscellaneous Notes * [employer] Conversion Note - Historical ProviderMD - 11/28/2018 2:00 AM CDT Public Opinion Survey Taker Details Entered On: 11/28/2018 2:45 EDT Performed On: 11/28/2018 2:00 EDT by Robny Benitez, RN Order Details Transport Mode Order [...]
--- OUTSIDE RECORDS SUMMARY | 2025-05-10 12:53 | XMS_ITS | Encounter Summary ---
Author Organization [employer] ([place], [place], [place], [place]) Address [address] [place] [address] Care Team Providers Care Safety Technician Name Role Phone Unavailable Primary Care Provider Unavailabl e Encounter Details Date Type Department Care Team (Late st Contact Info) Description 11/23/2018 Transcribed Document [facility] [place] [address] [place] [address] ProviderErika MD [address] [place] [address] Social History Tobacco Use [...]
--- OUTSIDE RECORDS SUMMARY | 2025-05-10 12:53 | XMS_ITS | Encounter Summary ---
Author Organization [employer] ([place], [place], [place], [place]) Address [address] [place] [address] Care Team Providers Care Glue Cook Name Role Phone Unavailable Primary Care Provider Unavailabl e Encounter Details Date Type Department Care Team (Late st Contact Info) Description 11/16/2018 Transcribed Document [facility] [place] Family Medicine [address] [place] [address] ProviderErika MD [address] [place] [address] Social History Tobacco Use Types Packs/Day Years Used Date Smoking Tobacco: Never Assessed Sex and Gender Information Value Date Recorded Sex Assigned at Not on file Legal Sex Male 5:03 PM CDT Gender Identity Not on file Sexual Orientation Not on file documented as of this encounter Miscellaneous Notes * Cerner Conversion Note - Erika ProviderMD - 11/16/2018 8:20 AM CDT [facility] Main OR IntraOp Summary Primary Physician: JULIO CESAR CARVALHO MD-CAT Finalized Date/Time: 11/17/18 10:03:54 Pt. Name: DOTTIE VILLASENOR D.O.B./Sex: 1940 Male Med Rec #: [id number] Physician: JULIO CESAR CARVALHO MD-CAT Financial #: [id number] Pt. Type: I Room/Bed: [facility] Admit/Disch: 11/16/18 06:45:00 - Institution: [facility] IntraOp Case Attendance Entry 1 Entry 2 Entry 3 Case Attendee JULIO CESAR CARVALHO MD-CAT ALTIZER, LISA E, RN Alton Gamble, manager food beverage Role Performed Surgeon/Proceduralist, Game Bird Farmer, First Vp Training First Time In 11/16/18 07:06:00 11/16/18 07:06:00 [...] CAROLYN, RN Role Performed Scrub, First Anesthesiologist Game Bird Farmer, Second Time In 11/16/18 07:06:00 11/16/18 07:06:00 [...] Pref Card Builder Role Performed Physician assistant operator Physician assistant operator Game Bird Farmer, Second Time In 11/16/18 07:06:00 11/16/18 09:00:00 [...] Attendee Colette Alexander, LISETH Dimas, Alton Gamble, manager food beverage Pref Card Builder Vp Training Role Performed Scrub, First Vp Training Vp Training Time In 11/16/18 10:32:00 11/16/18 11:05:00 11/16/18 [...] 12:25:17 Entry 13 Case Attendee LISETH ROE, Vp Training Role Performed Vp Training Time In 11/16/18 12:13:00 Time Out 11/16/18 12:30:00 Procedure Aortic Aneurysm Ascending Repair, CABG w Aortic Valve, Transesophageal Echocardiogram Other Attendee Superficial Wound Closed By: Last Modified By: RADHA VALENCIA, TONJA 11/16/18 12:40:56 [facility] IntraOp Case Attendance Audit 11/16/18 12:40:56 Physical Therapy Aid: ALTIZEL Modifier: ALTIZEL 1 <+> Time Out [...] w Aortic Valve, Transesophageal Echocardiogram 11/16/18 12:25:17 Physical Therapy Aid: ALTIZEL Modifier: ALTIZEL 12 <+> Time Out 12 <*> Procedure Aortic Aneurysm Ascending Repair, CABG w Aortic Valve <+> 13 Case Attendee <+> 13 Role Performed <+> 13 Time In <+> 13 Procedure 11/16/18 11:17:39 Physical Therapy Aid: ALTIZEL Modifier: ALTIZEL <+> 12 Case Attendee <+> 12 Role Performed <+> 12 Time In <+> 12 Procedure 11/16/18 11:17:17 Physical Therapy Aid: ALTIZEL Modifier: ALTIZEL 3 <+> Time Out 3 <*> Procedure Transesophageal Echocardiogram <+> 11 Case Attendee <+> 11 Role Performed <+> 11 Time In <+> 11 Time Out <+> 11 Procedure <+> 11 Other Attendee 11/16/18 10:47:10 Physical Therapy Aid: ALTIZEL Modifier: ALTIZEL <+> 10 Case Attendee <+> 10 Role Performed <+> 10 Time In <+> 10 Time Out <+> 10 Procedure <+> 10 Other Attendee 11/16/18 09:58:31 Physical Therapy Aid: ALTIZEL Modifier: ALTIZEL <+> 1 Procedure <+> 2 Procedure <+> 3 Procedure <+> 4 Procedure <+> 5 Procedure <+> 6 Procedure 7 <*> Procedure Aortic Aneurysm Ascending Repair, CABG w Aortic Valve 8 <*> Procedure Aortic Aneurysm Ascending Repair, CABG w Aortic Valve 9 <*> Procedure Aortic Aneurysm Ascending Repair, CABG w Aortic Valve 11/16/18 09:50:06 Physical Therapy Aid: ALTIZEL Modifier: ALTIZEL 9 <+> Time Out 9 <*> Procedure Aortic Aneurysm Ascending Repair, CABG w Aortic Valve 11/16/18 09:39:14 Physical Therapy Aid: ALTIZEL Modifier: ALTIZEL <+> 9 Case Attendee <+> 9 Role Performed <+> 9 Time In <+> 9 Procedure <+> 9 Other Attendee 11/16/18 09:28:12 Physical Therapy Aid: ALTIZEL Modifier: ALTIZEL <+> 8 Case Attendee <+> 8 Role Performed <+> 8 Time In <+> 8 Procedure 11/16/18 08:24:20 Physical Therapy Aid: ALTIZEL Modifier: ALTIZEL 7 <+> Time Out 7 <*> Procedure Aortic Aneurysm Ascending Repair, CABG w Aortic Valve 11/16/18 08:21:45 Physical Therapy Aid: ALTIZEL Modifier: ALTIZEL <+> 6 Time Out 11/16/18 08:10:59 Physical Therapy Aid: ALTIZEL Modifier: ALTIZEL 6 <*> Time In 11/16/18 07:00:00 <+> 7 Case Attendee <+> 7 Role Performed <+> 7 Time In <+> 7 Procedure 11/16/18 07:19:51 Physical Therapy Aid: ALTIZEL Modifier: ALTIZEL <+> 2 Time In <+> 3 Time In <+> 4 Time In <+> 5 Time In 11/16/18 07:19:37 Physical Therapy Aid: ALTIZEL Modifier: ALTIZEL <+> 1 Time In <+> 2 Case Attendee <+> 2 Role Performed <+> 3 Case Attendee <+> 3 Role Performed <+> 4 Case Attendee <+> 4 Role Performed <+> 5 Case Attendee <+> 5 Role Performed <+> 6 Case Attendee <+> 6 Role Performed <+> 6 Time In [facility] IntraOp Case Times Entry 1 Patient In Room Time 11/16/18 07:06:00 Out Room Time 11/16/18 12:30:00 Anesthesia Start Time 11/16/18 07:06:00 Stop Time 11/16/18 12:30:00 Anesthesia Ready 11/16/18 07:06:00 Surgery / Procedure Times Start Time 11/16/18 08:20:00 Stop Time 11/16/18 12:22:00 Last Modified By: RADHA VALENCIA RN 11/16/18 07:17:32 [facility] IntraOp Case Times Audit 11/16/18 12:30:30 Physical Therapy Aid: ALTIZEL Modifier: ALTIZEL <+> 1 Out Room Time <+> 1 Stop Time <+> 1 Stop Time 11/16/18 08:21:57 Physical Therapy Aid: ALTIZEL Modifier: ALTIZEL <+> 1 Start Time [facility] IntraOp Cautery Entry 1 ESU Identification Cautery Type Monopolar ESU ID Number [id number] ID Type Hospital Number Cautery Settings Cut [...] Modified By: RADHA VALENCIA RN 11/16/18 08:42:12 [facility] IntraOp Communication Entry 1 Entry 2 Entry [...] RN 11/16/18 11:53:58 11/16/18 12:13:00 11/16/18 12:13:00 [facility] IntraOp Communication Audit 11/16/18 12:13:00 Physical Therapy Aid: ALTIZEL Modifier: ALTIZEL <+> 8 Communication By <+> 8 Date and Time <+> 8 Communication To <+> 9 Communication By <+> 9 Date and Time <+> 9 Communication To <+> 9 Comment 11/16/18 11:53:58 Physical Therapy Aid: ALTIZEL Modifier: ALTIZEL <+> 7 Communication By <+> 7 Date and Time <+> 7 Communication To <+> 7 Comment 11/16/18 11:31:42 Physical Therapy Aid: ALTIZEL Modifier: ALTIZEL <+> 6 Communication By <+> 6 Date and Time <+> 6 Communication To 11/16/18 10:22:56 Physical Therapy Aid: ALTIZEL Modifier: ALTIZEL <+> 5 Communication By <+> 5 Date and Time <+> 5 Communication To 11/16/18 09:10:41 Physical Therapy Aid: ALTIZEL Modifier: ALTIZEL <+> 3 Communication By <+> 3 Date and Time <+> 3 Communication To <+> 4 Communication By <+> 4 Date and Time <+> 4 Communication To <+> 4 Comment [facility] IntraOp Counts Verification Entry 1 Entry 2 [...] LISA E, RN 11/16/18 07:20:29 11/16/18 11:54:29 [facility] IntraOp Counts Verification Audit 11/16/18 11:54:29 Physical Therapy Aid: ALTIZEL Modifier: ALTIZEL <+> 2 Procedure <+> 2 Count Type <+> 2 Counts Verification Sequence <+> 2 Count Results <+> 2 Count Performed By (Scrub) <+> 2 Count Performed By (RN) 11/16/18 09:58:33 Physical Therapy Aid: ALTIZEL Modifier: ALTIZEL 1 <*> Procedure Aortic Aneurysm Ascending Repair, CABG w Aortic Valve [facility] IntraOp Counts Final Entry 1 Procedure Aortic Aneurysm Ascending Repair, CABG w Aortic Valve, Transesophageal Echocardiogram Final Count Info Count Type Sponge, Sharps, Instrument, Miscellaneous Counts Verification Skin Closure/end of Sequence procedure Count Results Correct, surgeon notified Counts Performed By Count Performed By MELODY MASON (Scrub) Count Performed By RADHA VALENCIA RN (RN) Last Modified By: RADHA VALENCIA RN 11/16/18 12:01:46 [facility] IntraOp Cultures and Spec Summary Entry 1 Cultrures and Specimens Specimen Ordered: Yes Specimens Types Pathology Specimen(s) Labeled Pathology and Sent to Last Modified By: RADHA VALENCIA RN 11/16/18 09:22:38 [facility] IntraOp Departure from OR Entry 1 Integumentary Assessment Integumentary WDL Assessment WDL Transfer/Handoff Transfer to ICU - Cardiovascular Post-op Transport Bed (including Via specialty) Patient Transport SHERRY NICHOLS, Accompanied by Tye KHAN Tom, manager food beverage Last Modified By: RADHA VALENCIA RN 11/16/18 08:42:33 [facility] IntraOp Drains and Tubes Entry 1 Entry [...] LISA E, RN 11/16/18 08:42:54 11/16/18 08:42:54 [facility] IntraOp Dressing and Packing Entry 1 Entry 2 Type Dressing Dressing Location Mediastinum Mediastinum Wound Dressing Item 4x4's, Skin Closure Glue 4x4's Wound Packing Type Tape Type Supplemental Applications Applied By Other Comments Soft cloth paper tape Soft cloth paper tape Last Modified By: RADHA VALENCIA RN ALTIZER, LISA E, RN 11/16/18 08:43:06 11/16/18 08:53:50 [facility] IntraOp Dressing and Packing Audit 11/16/18 08:53:50 Physical Therapy Aid: SAIGEIZEL Modifier: ALTIZEL <+> 2 Type <+> 2 Location <+> 2 Wound Dressing Item <+> 2 Other Comments [facility] IntraOp Fire Risk Assessment Entry 1 Fire [...] Modified By: RADHA VALENCIA RN 11/16/18 07:20:01 [facility] IntraOp Fire Risk Assessment Audit 11/16/18 08:43:21 Physical Therapy Aid: SAIGEIZEL Modifier: ALTIZEL 1 <*> Fire Risk Assessment Verified 11/16/18 07:19:00 Date/Time [facility] IntraOp General Case Research Editor 1 Case Information OR OR 14 [facility] Case Level 2 Room Verified Yes Wound Class I - Clean Specialty SN Cardio Thoracic Anesthesia Type General ASA Class 4 Diagnosis Preop Diagnosis CAD, AORTIC VALVE DISEASE, ASCENDING AORTIC ANEURSYM Postop Diagnosis SEE MD POST OP NOTE Last Modified By: RADHA VALENCIA RN 11/16/18 08:50:46 [facility] IntraOp Implant Log Entry 1 Entry 2 Type Implant (Synthetic) Tissue Implant (Biologic) Implant Log Implant Type Grafts, non-biological Tissue Implant Type Heart valve Implant [facility] PLAT VALVE AORT ROOT Identification [id number] [facility] [id number] Description Implant Quantity 1 1 Implant Site AORTA AORTA Implant Identification Model Number Implant [id number] Identification Serial Number Implant Identification Lot Number Implant Michel Ind:Maquet:Cv Medtronic:Card Surg:Tech Identification Twist Maker Name: Implant [id number] Identification Catalog Number Implant Size Implant Has an Yes Yes Expiration Date Implant Expiration 08/23/23 05/20/22 Date Wasted Radioactive Material Time Implanted Tissue Implant Continue for Tissue Implant Documentation Tissue Identification Number Graft Prep Per Yes Twist Maker Instructions: Tissue Preparation N/A Method: Reconstitution Solution: Reconstitution Solution Lot Number Reconstitution Solution Expiration Date: Thawing Solution Thawing Solution Lot Number Thawing Solution Expiration Date Preparation NACL Materials, Other Preparation [id number] Materials, Other Lot Number Preparation 06/22/22 Materials, Other Expiration Date Tissue MARLON, MELODY Prepared/Processed By Twist Maker Yes Paperwork Completed Implant Type Comment Last Modified By: RADHA VALENCIA RN ALTIZER, LISA E, RN 11/16/18 09:42:38 11/16/18 09:42:38 [facility] IntraOp Intraoperative Assessment Entry 1 Handoff Reported [...] Modified By: RADHA VALENCIA RN 11/16/18 08:25:54 [facility] IntraOp Intraoperative Equipment Entry 1 Equipment Intraop Monitoring Blood Pressure Non-Invasive BP Device Source Blood Pressure Arm, right upper Location Pulse Oximeter Hand, left Probe Site Antiembolic Devices Scopes Photo/Video Documentation Last Modified By: RADHA VALENCIA RN 11/16/18 08:51:22 [facility] IntraOp Medication Admin Entry 1 Entry 2 Entry 3 Medication/Irrigant papverine HCL 30mg/ml lidocaine 1% 50ml vial NS 0.9% 50ml injection 10ml - [id number] - [id number] - [id number] Combo Med List Time Administered Route of FLUSH MAMMARY LOCAL FLUSH Administration Dose Dose 150 8 30 Unit of Measure mg ml ml Volume Administered By JULIO CESAR CARVALHO MD-[facility] ERASMO LÓPEZ PA MEECE, PAUL, PA Procedure Irrigation Irrigant Volume In Irrigant Volume Out Last Modified By: RADHA VALENCIA RN ALTIZER, LISA E, RN ALTIZER, LISA E, RN 11/16/18 08:52:11 11/16/18 11:07:14 11/16/18 08:52:11 Entry 4 Entry 5 Medication/Irrigant Ancef 1Gm advantage KT TISSEEL VH SD vial - [id number] Combo Med List Time Administered Route of IRRIGATION TOPICAL Administration Dose Dose 1 10 Unit of Measure gram ml Volume Administered By JULIO CESAR CARVALHO MD-CAT JULIO CESAR CARVALHO MD-CAT Procedure Irrigation Irrigant Volume In Irrigant Volume Out Last Modified By: RADHA VALENCIA RN ALTIZER, LISA E, RN 11/16/18 08:52:11 11/16/18 09:49:07 [facility] IntraOp Medication Admin Audit 11/16/18 11:07:14 Physical Therapy Aid: ALTIZEL Modifier: ALTIZEL 2 <*> Medication/Irrigant lidocaine 1% 50ml vial - [id number] <*> Administered By ALLA SORIANO RN 11/16/18 09:49:07 Physical Therapy Aid: ALTIZEL Modifier: ALTIZEL <+> 5 Medication/Irrigant <+> 5 Route of Administration <+> 5 Administered By <+> 5 Dose <+> 5 Unit of Measure [facility] IntraOp Patient Positioning Entry 1 Procedure Aortic [...] Modified By: RADHA VALENCIA RN 11/16/18 08:49:03 [facility] IntraOp Patient Positioning Audit 11/16/18 09:58:34 Physical Therapy Aid: ALTIZEL Modifier: ALTIZEL 1 <*> Procedure Aortic Aneurysm Ascending Repair, CABG w Aortic Valve [facility] IntraOp Sign In Entry 1 Patient, Site, [...] Modified By: RADHA VALENCIA RN 11/16/18 07:19:47 [facility] IntraOp Sign Out Entry 1 RN Confirmation [...] Modified By: RADHA VALENCIA RN 11/16/18 12:41:17 [facility] IntraOp Skin Prep Entry 1 Procedure Transesophageal Echocardiogram Prescribed Yes Pre-Surgical Prep Completed Prep Area Chin to TOES Intraop Prep Integumentary WDL Assessment WDL Patients Normal WDL Integumentary Variance(s) Prep Agents Chloraprep Prep by RADHA VALENCIA RN Skin Prep Comment Xander Soriano also prepped Hair Removal Last Modified By: RADHA VALENCIA RN 11/16/18 08:52:45 [facility] IntraOp Skin Prep Audit 11/16/18 09:58:34 Physical Therapy Aid: ALTIZEL Modifier: ALTIZEL <+> 1 Procedure [facility] IntraOp Surgical Procedures Entry 1 Entry 2 [...] RN 11/16/18 09:57:36 11/16/18 08:49:06 11/16/18 09:58:24 [facility] IntraOp Surgical Procedures Audit 11/16/18 12:41:26 Physical Therapy Aid: ALTIZEL Modifier: ALTIZEL <+> 1 Stop <+> 2 Stop <+> 3 Stop 11/16/18 10:51:43 Physical Therapy Aid: ALTIZEL Modifier: ALTIZEL 1 <*> Procedure Aortic Aneurysm Ascending Repair 11/16/18 10:17:14 Physical Therapy Aid: ALTIZEL Modifier: ALTIZEL <+> 3 Start 11/16/18 09:58:24 Physical Therapy Aid: ALTIZEL Modifier: ALTIZEL <+> 3 Procedure <+> 3 Primary Procedure <+> 3 Primary Surgeon <+> 3 Specialty <+> 3 Wound Class <+> 3 Anesthesia Type 11/16/18 09:57:36 Physical Therapy Aid: ALTIZEL Modifier: ALTIZEL 1 <*> Procedure Aortic Aneurysm Ascending Repair 1 <*> Additional Procedure Description (ASCENDING AORTIC ANEURYSM REPAIR, CABG, POSSIBLE AORTIC VALVE REPLACEMENT) [facility] IntraOp Temp Regulation Devices Entry 1 Entry 2 Temp Regulation Temperature Forced Air Warming Warm blankets Regulation Device device Temperature [id number] Regulation Device Serial/Unit Number Temperature Lower body Full body Regulation Site Temperature Device 43 DEG C Setting Temperature RADHA VALENCIA RN ALTIZER, LISA E, RN Regulation Device Applied by Temperature CATIA HUGGER TURNED ON Regulation Comment AFTER AORTIC CROSS CLAMP REMOVED Last Modified By: RADHA VALENCIA RN ALTIZER, LISA E, RN 11/16/18 08:53:25 11/16/18 08:53:25 [facility] IntraOP Time Out Entry 1 Procedure to [...] Modified By: RADHA VALENCIA RN 11/16/18 09:58:34 [facility] IntraOP Time Out Audit 11/16/18 09:58:34 Physical Therapy Aid: EARNESTINE Modifier: ALTIZEL 1 <*> Procedure to be Performed Aortic Aneurysm Ascending Repair, CABG w Aortic Valve Case Comments <None> Finalized By: JODI PITT Document Signatures Signed By: RADHA VALENCIA RN 11/16/18 12:41 JODI PITT 11/17/18 10:03 Unfinalized History Date/Time Username Reason for Unfinalizing Freetext Reason for Unfinalizing 11/17/18 09:59 [email or web address] Correct Billing Electronically signed by Parveen [facility] Conversion Cook Box Filler Cerner at 12/08/2022 12:09 PM CDT documented in this encounter Plan of Treatment Not on file documented as of this encounter Visit Diagnoses Not on filedocumented in this encounter
--- OUTSIDE RECORDS SUMMARY | 2025-05-10 12:53 | XMS_ITS | Encounter Summary ---
Author Organization [employer] ([place], [place], [place], [place]) Address [address] [place] [address] Care Team Providers Care Senior Software Qa Engineer Name Role Phone Unavailable Primary Care Provider Unavailabl e Encounter Details Date Type Department Care Team (Late st Contact Info) Description 11/23/2018 Transcribed Document [facility] [place] Family Medicine [address] [place] [address] ProviderErika MD [address] [place], [place] [id number] Social History Tobacco Use Types Packs/Day Years [...] 1940 Associated Diagnoses: CAD (coronary artery disease), [place] coronary artery; Thrombocytopenia; Coronary artery disease; HTN [...] S1, S2, No edema. Integumentary: Warm, Dry, [place], incision is C/D/I. Neurologic: Alert, left sided [...] of discharge- MELLISSA has sent information to [facility] -Transfer to [address] EF 55-60% per echo 11/16/18 DVT Prophylaxis: SCDs Diagnosis CAD (coronary artery disease), [place] coronary artery - Admitting, Medical. Thrombocytopenia - [...]
--- OUTSIDE RECORDS SUMMARY | 2025-05-10 12:53 | XMS_ITS | Encounter Summary ---
Author Organization [employer] ([place], [place], [place], [place]) Address [address] [place] [address] Care Team Providers Care Manager Urgent Care Name Role Phone Unavailable Primary Care Provider Unavailabl e Encounter Details Date Type Department Care Team (Late st Contact Info) Description 11/28/2018 Transcribed Document [facility] [place] Medicine [address] [place] [address] ProviderErika MD [address] [place] [address] Social History Tobacco Use Types [...] access. 20R shoulder x1 attempt using vein residential property manager. 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
--- OUTSIDE RECORDS SUMMARY | 2025-05-10 12:53 | XMS_ITS | Encounter Summary ---
Author Organization [employer] ([place], [place], [place], [place]) Address [address] [place] [address] Care Team Providers Care Ladle Watcher Name Role Phone Unavailable Primary Care Provider Unavailabl e Encounter Details Date Type Department Care Team (Late st Contact Info) Description 11/28/2018 Transcribed Document [facility] [place] [address] [place] [address] ProviderErika MD [address] [place] [address] Social History Tobacco Use Types [...] EDT Electronically signed by Christina Saini Conversion Turner Splitter Machine Operator Cerner at 12/08/2022 12:29 PM CDT documented in this encounter Plan of Treatment Not on file documented as of this encounter Visit Diagnoses Not on filedocumented in this encounter
--- OUTSIDE RECORDS SUMMARY | 2025-05-10 12:53 | XMS_ITS | Encounter Summary ---
Author Organization [employer] ([place], [place], [place], [place]) Address [address] [place] [address] Care Team Providers Care Accounts Executive Name Role Phone Unavailable Primary Care Provider Unavailabl e Encounter Details Date Type Department Care Team (Late st Contact Info) Description 11/16/2018 Transcribed Document [facility] [place] [address] [place] [address] ProviderErika MD [address] [place] [address] Social History Tobacco Use Types Packs/Day Years Used Date Smoking Tobacco: Never Assessed Sex and Gender Information Value Date Recorded Sex Assigned at Not on file Legal Sex Male 5:03 PM CDT Gender Identity Not on file Sexual Orientation Not on file documented as of this encounter Miscellaneous Notes * Cerner Conversion Note - Erika ProviderMD - 11/16/2018 7:30 AM CDT [facility] Main OR Preop Summary Primary Physician: JULIO CESAR CARVALHO MD-CAT Finalized Date/Time: 11/16/18 07:12:04 Pt. Name: DOTTIE VILLASENOR D.O.B./Sex: 1940 Male Med Rec #: [id number] Physician: JULIO CESAR CARVALHO MD-CAT Financial #: [id number] Pt. Type: I Room/Bed: ASA/8 Admit/Disch: 11/16/18 06:45:00 - Institution: [facility] PreOp Case Times Entry 1 In Preop [...]
--- OUTSIDE RECORDS SUMMARY | 2025-05-10 12:53 | XMS_ITS | Encounter Summary ---
Author Organization [employer] ([place], [place], [place], [place]) Address [address] [place] [address] Care Team Providers Care Category Director Name Role Phone Unavailable Primary Care Provider Unavailabl e Encounter Details Date Type Department Care Team (Late st Contact Info) Description 11/24/2018 Transcribed Document [facility] [place] Family Medicine [address] [place] [address] ProviderErika MD [address] [place], [place] [phone] Social History Tobacco Use Types Packs/Day Years [...] 1940 Associated Diagnoses: CAD (coronary artery disease), [place] coronary artery; Thrombocytopenia; Coronary artery disease; HTN [...] S1, S2, No edema. Integumentary: Warm, Dry, [place], incision is C/D/I. Neurologic: Alert, left sided [...] of discharge- CM has sent information to [facility] -Transfer to [facility] 11/24/18 -POD#8 -Awaiting transfer to [facility] -Awaiting response from [facility] EF 55-60% per echo 11/16/18 DVT Prophylaxis: SCDs Diagnosis CAD (coronary artery disease), [place] coronary artery - Admitting, Medical. Thrombocytopenia - [...] - Discharge, Medical. Electronically signed by Interface, [facility] Conversion Bulk Sausage Casing Tier Off Cerner at 12/08/2022 12:10 PM CDT documented in this encounter Plan of Treatment Not on file documented as of this encounter Visit Diagnoses Not on filedocumented in this encounter
--- OUTSIDE RECORDS SUMMARY | 2025-05-10 12:53 | XMS_ITS | Encounter Summary ---
Author Organization [employer] ([place], [place], [place], [place]) Address [address] [place] [address] Care Team Providers Care Fuel Pilot Engineer Name Role Phone Unavailable Primary Care Provider Unavailabl e Encounter Details Date Type Department Care Team (Late st Contact Info) Description 12/01/2018 Transcribed Document [facility] [place] Family Medicine [address] [place] [address] ProviderErika MD [address] [place] [address] Social History Tobacco Use Types [...] KISHA BROWER, PT - 12/01/2018 18:30 EDT Correction Goals Mobility/Bed Mobility LTG PT Grid Goal [...] EDT Electronically signed by Christina Saini Conversion Landscape Horticulture Instructor Cerner at 12/08/2022 12:38 PM CDT documented in this encounter Plan of Treatment Not on file documented as of this encounter Visit Diagnoses Not on filedocumented in this encounter
--- OUTSIDE RECORDS SUMMARY | 2025-05-10 12:53 | XMS_ITS | Encounter Summary ---
Author Organization [employer] ([place], [place], [place], [place]) Address [address] [place] [address] Care Team Providers Care Wool Hat Hydraulicker Name Role Phone Unavailable Primary Care Provider Unavailabl e Encounter Details Date Type Department Care Team (Late st Contact Info) Description 11/28/2018 Transcribed Document [facility] [place] [address] [place] [address] ProviderErika MD [address] [place] [address] Social History Tobacco Use Types [...] EDT Electronically signed by Christina Saini Conversion Dynamite Packing Machine Operator Cerner at 12/08/2022 12:28 PM CDT documented in this encounter Plan of Treatment Not on file documented as of this encounter Visit Diagnoses Not on filedocumented in this encounter
--- OUTSIDE RECORDS SUMMARY | 2025-05-10 12:53 | XMS_ITS | Encounter Summary ---
Author Organization [employer] ([place], [place], [place], [place]) Address [address] [place] [address] Care Team Providers Care Insolvency Practitioner Name Role Phone Unavailable Primary Care Provider Unavailabl e Encounter Details Date Type Department Care Team (Late st Contact Info) Description 11/23/2018 Transcribed Document [facility] [place] [address] [place] [address] ProviderErika MD [address] [place] [address] Social History Tobacco Use Types [...] Tab, Oral, At Bedtime saliva substitutes, 1 [place], Buccal, Q2H, PRN Senokot, 17.2 mg= 2 Tab, Oral, BID Zofran, 4 mg= 2 mL, IV Push, Q4H, PRN Electronically signed by Parveen, [facility] Conversion Program Facilitator Cerner at 12/08/2022 12:26 PM CDT documented in this encounter Plan of Treatment Not on file documented as of this encounter Visit Diagnoses Not on filedocumented in this encounter
--- OUTSIDE RECORDS SUMMARY | 2025-05-10 12:53 | XMS_ITS | Encounter Summary ---
Author Organization [employer] ([place], [place], [place], [place]) Address [address] [place] [address] Care Team Providers Care Editing Computer Publisher Name Role Phone Unavailable Primary Care Provider Unavailabl e Encounter Details Date Type Department Care Team (Late st Contact Info) Description 11/24/2018 Transcribed Document [facility] [place] Family Medicine [address] [place] [address] ProviderErika MD [address] [place] [address] Social History Tobacco Use Types Packs/Day Years Used Date Smoking Tobacco: Never Assessed Sex and Gender Information Value Date Recorded Sex Assigned at Not on file Legal Sex Male 5:03 PM CDT Gender Identity Not on file Sexual Orientation Not on file documented as of this encounter Miscellaneous Notes * Cerner Conversion Note - Historical ProviderMD - 11/24/2018 2:00 AM CDT Mold Forms Builder Details Entered On: 11/24/2018 3:36 EDT Performed [...]
--- OUTSIDE RECORDS SUMMARY | 2025-05-10 12:53 | XMS_ITS | Encounter Summary ---
Author Organization [employer] ([place], [place], [place], [place]) Address [address] [place] [address] Care Team Providers Care Dialysis Clinical Manager Name Role Phone Unavailable Primary Care Provider Unavailabl e Encounter Details Date Type Department Care Team (Late st Contact Info) Description 12/01/2018 Transcribed Document [facility] [place] [address] [place] [address] ProviderErika MD [address] [place] [address] Social History Tobacco Use Types Packs/Day Years Used Date Smoking Tobacco: Never Assessed Sex and Gender Information Value Date Recorded Sex Assigned at Not on file Legal Sex Male 5:03 PM CDT Gender Identity Not on file Sexual Orientation Not on file documented as of this encounter Miscellaneous Notes * Cerner Conversion Note - Historical ProviderMD - 12/01/2018 2:00 AM CDT Thermostat Repairer Details Entered On: 12/01/2018 0:23 EDT Performed [...]
--- OUTSIDE RECORDS SUMMARY | 2025-05-10 12:53 | XMS_ITS | Encounter Summary ---
Author Organization [employer] ([place], [place], [place], [place]) Address [address] [place] [address] Care Team Providers Care Halfway House Counselor Name Role Phone Unavailable Primary Care Provider Unavailabl e Encounter Details Date Type Department Care Team (Late st Contact Info) Description 11/28/2018 Transcribed Document [facility] [place] [address] [place] [address] ProviderErika MD [address] [place] [address] Social History Tobacco Use [...] Jacob Coy MD Electronically signed by Parveen [facility] Conversion Firer Tunnel Kiln Cerner at 12/08/2022 12:31 PM CDT documented in this encounter Plan of Treatment Not on file documented as of this encounter Visit Diagnoses Not on filedocumented in this encounter
--- OUTSIDE RECORDS SUMMARY | 2025-05-10 12:53 | XMS_ITS | Encounter Summary ---
Author Organization [employer] ([place], [place], [place], [place]) Address [address] [place] [address] Care Team Providers Care Steward/Stewardess Bath Name Role Phone Unavailable Primary Care Provider Unavailabl e Encounter Details Date Type Department Care Team (Late st Contact Info) Description 11/30/2018 Transcribed Document [facility] [place] [address] [place] [address] ProviderErika MD [address] [place] [address] Social History Tobacco Use Types Packs/Day Years Used Date Smoking Tobacco: Never Assessed Sex and Gender Information Value Date Recorded Sex Assigned at Not on file Legal Sex Male 5:03 PM CDT Gender Identity Not on file Sexual Orientation Not on file documented as of this encounter Miscellaneous Notes * Cerner Conversion Note - Historical ProviderMD - 11/30/2018 2:00 AM CDT Candy Spreader Helper Details Entered On: 11/30/2018 0:59 EDT Performed [...]
--- OUTSIDE RECORDS SUMMARY | 2025-05-10 12:53 | XMS_ITS | Encounter Summary ---
Author Organization [employer] ([place], [place], [place], [place]) Address [address] [place] [address] Care Team Providers Care Manager Retail Name Role Phone Unavailable Primary Care Provider Unavailabl e Encounter Details Date Type Department Care Team (Late st Contact Info) Description 11/28/2018 Transcribed Document [facility] [place] [address] [place] [address] ProviderErika MD [address] [place] [address] Social History Tobacco Use Types [...] : Transfer to critical care Rapid Response Manager Retail #1 : MICHAEL WALLER RN Rapid Response Manager Retail #2 : DIA BINGHAM RN Rapid Response Manager Retail #3 : SRINIVAS LEAL RN [place], [place]ER[place], [...] Team Initiation Reason Details : 3E 333. VP LAB notified of pt with decrease in BP despite treatment. MD notified. Bolus given and pt labwork obtained. 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 Conversion Turret Punch Operator Cerner at 12/08/2022 12:11 PM CDT documented in this encounter Plan of Treatment Not on file documented as of this encounter Visit Diagnoses Not on filedocumented in this encounter
--- OUTSIDE RECORDS SUMMARY | 2025-05-10 12:53 | XMS_ITS | Encounter Summary ---
Author Organization [employer] ([place], [place], [place], [place]) Address [address] [place] [address] Care Team Providers Care Air Cargo Agent Name Role Phone Unavailable Primary Care Provider Unavailabl e Encounter Details Date Type Department Care Team (Late st Contact Info) Description 11/16/2018 Transcribed Document [facility] [place] [address] [place] [address] ProviderErika MD [address] [place] [address] Social History Tobacco Use Types [...] : 11/17/2018 00:00 Atherosclerotic heart disease of [place] coronary artery without angina pectoris 11/17/2018 00:00 Essential (primary) hypertension 11/17/2018 00:00 Hypothyroidism, unspecified 11/17/2018 00:00 Nonrheumatic aortic (valve) insufficiency 11/17/2018 00:00 Restless legs syndrome 11/17/2018 00:00 Thoracic aortic aneurysm, without rupture 11/17/2018 00:00 Thrombocytopenia, unspecified 11/16/2018 00:00 Atherosclerotic heart disease of [place] coronary artery without angina pectoris 11/16/2018 00:00 [...] ROGER LEWIS, PT - 11/18/2018 16:07 EDT Farm Implement Mechanic Goals Mobility/Bed Mobility LTG PT Grid Goal [...] ROGER LEWIS, PT - 11/18/2018 16:07 EDT [place] PT Charges PT Eval Moderate Complexity : 1 ROGER LEWIS, PT - 11/18/2018 16:07 EDT documented in this encounter Plan of Treatment Not on file documented as of this encounter Visit Diagnoses Not on filedocumented in this encounter
--- OUTSIDE RECORDS SUMMARY | 2025-05-10 12:53 | XMS_ITS | Encounter Summary ---
Author Organization [employer] ([place], [place], [place], [place]) Address [address] [place] [address] Care Team Providers Care Gas Station Cashier Name Role Phone Unavailable Primary Care Provider Unavailabl e Encounter Details Date Type Department Care Team (Late st Contact Info) Description 11/28/2018 Transcribed Document [facility] [place] [address] [place] [address] ProviderErika MD [address] [place], [place] [address] Social History Tobacco Use Types Packs/Day Years [...] CHARLES LIAO RN - 11/29/2018 1:35 EDT Electronically signed by Christina Saini Conversion Industrial Chemistry Teacher Cerner at 12/08/2022 12:33 PM CDT documented in this encounter Plan of Treatment Not on file documented as of this encounter Visit Diagnoses Not on filedocumented in this encounter
--- OUTSIDE RECORDS SUMMARY | 2025-05-10 12:53 | XMS_ITS | Encounter Summary ---
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
--- OUTSIDE RECORDS SUMMARY | 2025-05-10 12:53 | XMS_ITS | Encounter Summary ---
Author Organization [employer] ([place], [place], [place], [place]) Address [address] [place] [address] Care Team Providers Care Cath Lab Nurse Name Role Phone Unavailable Primary Care Provider Unavailabl e Encounter Details Date Type Department Care Team (Late st Contact Info) Description 11/28/2018 Transcribed Document [facility] [place] [address] [place] [address] ProviderErika MD [address] [place] [address] Social History Tobacco Use Types [...] Spiritual Care Reason for Visit : Other: PROTECTION OFFICER Intervention/Comment/Summary Points : Pt fell back to sleep after RNs finished assessing pt. No needs at this time. Congregational Preference : Oriental Orthodox MALU SHEPARD Chaplain-Non Cert - 11/28/2018 5:34 EDT Electronically signed by Christina Saini Conversion Director [facility] Felipe at 12/08/2022 12:11 PM CDT documented in this encounter Plan of Treatment Not on file documented as of this encounter Visit Diagnoses Not on filedocumented in this encounter
--- OUTSIDE RECORDS SUMMARY | 2025-05-10 12:53 | XMS_ITS | Encounter Summary ---
Author Organization [employer] ([place], [place], [place], [place]) Address [address] [place] [address] Care Team Providers Care Truck Loader Name Role Phone Unavailable Primary Care Provider Unavailabl e Encounter Details Date Type Department Care Team (Late st Contact Info) Description 11/16/2018 Transcribed Document [facility] [address] [place] [address] Niles Nunez MD [address] [place], [place] [id number] Social History Tobacco Use Types Packs/Day Years [...]
--- OUTSIDE RECORDS SUMMARY | 2025-05-10 12:53 | XMS_ITS | Encounter Summary ---
Author Organization [employer] ([place], [place], [place], [place]) Address [address] [place] [address] Care Team Providers Care Chief Of Party Name Role Phone Unavailable Primary Care Provider Unavailabl e Encounter Details Date Type Department Care Team (Late st Contact Info) Description 11/16/2018 Transcribed Document [facility] [place] Family Medicine [address] [place] [address] ProviderErika MD [address] [place] [address] Social History Tobacco Use [...] On: 11/16/2018 12:27 EDT by Lorin Pratt, [facility] Phone Call for Consults Consult Phone Call/Page Attempt : Other: Valve: no call Lorin Pratt [facility] - 11/16/2018 13:34 EDT documented in this encounter Plan of Treatment Not on file documented as of this encounter Visit Diagnoses Not on filedocumented in this encounter
--- OUTSIDE RECORDS SUMMARY | 2025-05-10 12:53 | XMS_ITS | Encounter Summary ---
Author Organization [employer] ([place], [place], [place], [place]) Address [address] [place] [address] Care Team Providers Care Anode Adjuster Name Role Phone Unavailable Primary Care Provider Unavailabl e Encounter Details Date Type Department Care Team (Late st Contact Info) Description 11/20/2018 Transcribed Document [facility] [place] [address] [place] [address] ProviderErika MD [address] [place] [address] Social History Tobacco Use Types Packs/Day Years Used Date Smoking Tobacco: Never Assessed Sex and Gender Information Value Date Recorded Sex Assigned at Not on file Legal Sex Male 5:03 PM CDT Gender Identity Not on file Sexual Orientation Not on file documented as of this encounter Miscellaneous Notes * Cerner Conversion Note - Erika ProviderMD - 11/20/2018 9:36 AM CDT TRAFFIC LINE PAINTER Note Entered On: 11/24/2018 13:28 EDT Performed On: 11/24/2018 13:19 EDT by MAMTA SOLO, TRAFFIC LINE PAINTER Dysphagia Exercise Technique Dysphagia Therapy/Treatment Type #1 [...] Technique PO Trial #1 Consistency Trialed : [place] Oral Symptoms : None observed Pharyngeal Signs [...] 13:19 EDT Swallow Plan/Goals Swallow LTG Grid TRAFFIC LINE PAINTER Parts Finisher Goal #1 TRAFFIC LINE PAINTER Parts Finisher Goal #2 Swallow LTG : Establish safe [...] Date Met : 11/22/2018 EDT MAMTA SOLO, [facility] - 11/24/2018 13:19 EDT MAMTA SOLO TRAFFIC LINE PAINTER - 11/24/2018 13:19 EDT MAMTA SOLO TRAFFIC LINE PAINTER - 11/24/2018 13:19 EDT MAMTA SOLO [facility] - 11/24/2018 13:19 EDT LTG Lang/Comm/Cog LTG TRAFFIC LINE PAINTER Custodial Goal 1 Parts Finisher Goal 2 Goals : Improved spoken language expression at the time of discharge Improved auditory/spoken language comprehension at the time of discharge Status : Initial Initial MAMTA SOLO [facility] - 11/24/2018 13:19 EDT MAMTA SOLO SLP - 11/24/2018 13:19 EDT STG Lang_Comm_Cog Motor Speech STG Grid Goal #1 Activity : Improve intelligibility of speech Status : Initial MAMTA SOLO [facility] - 11/24/2018 13:19 EDT Auditory Comprehension Grid Goal #1 Goal #2 Activity : Follow directions, 3 step commands simple Comprehend paragraph complex MAMTA SOLO [facility] - 11/24/2018 13:19 EDT MAMTA SOLO [facility] - 11/24/2018 13:19 EDT Verbal Expression STG Grid Goal #1 Activity : Generate items in a category MAMTA SOLO [facility] - 11/24/2018 13:19 EDT Reading Comprehension STG Grid Goal #1 Activity : Visual perception deficits MAMTA SOLO [facility] - 11/24/2018 13:19 EDT Attention STG Grid Goal #1 Activity : Other: Probe Status : Goal met Date Met : 11/24/2018 TGT MAMTA SOLO [facility] - 11/24/2018 13:19 EDT Memory STG Grid Goal #1 Goal #2 Goal #3 Activity : Other: Probe Improve short term functional delayed Improve short term working memory Status : Goal met Initial Initial Date Met : 11/24/2018 TGT MAMTA SOLO [facility] - 11/24/2018 13:19 EDT MAMTA SOLO [facility] - 11/24/2018 13:19 EDT MAMTA SOLO [facility] - 11/24/2018 13:19 EDT Problem Solving STG Grid Goal #1 Goal #2 Goal #3 Goal #4 Activity : Generate a list of simple/concrete items Label items in a category, complex/abstract Other: Probe Improve simple problem solving Status : Initial Initial Goal met Date Met : 11/24/2018 EDT MAMTA SOLO SLP - 11/24/2018 13:19 EDT MAMTA SOLO SLP - 11/24/2018 13:19 EDT MAMAT SOLO SLP - 11/24/2018 13:19 EDT MAMTA SOLO SLP - 11/24/2018 13:19 EDT Subjective/Assessment/Plan TRAFFIC LINE PAINTER Patient Concern : Pt was awake and lying in bed. Agreeable to tx. TRAFFIC LINE PAINTER Therapy/Treatment Asmt Cmnt : Pt seen for speech and dysphagia tx. Great participation in tx. Requires continuous cues for accurate completion of timing exercises. No overt pharyngeal patterns with nectar liquids. Further cogntive probe completed. Pt presents with a moderate cognitive deficits characterized by impairments in memory, orientation, and problem solving. POC updated. TRAFFIC LINE PAINTER Plan : Continue per POC. Repeat swallow study Thursday. MAMTA SOLO SLP - 11/24/2018 13:19 EDT Education Barriers To Learning : Cognitive deficit Individuals Taught : Patient Readiness to Learn : Cooperative Readiness to Learn : Explanation MAMTA SOLO SLP - 11/24/2018 13:19 EDT TRAFFIC LINE PAINTER Education Assessment Grid 1 Evaluation Results : Verbalizes understanding MAMTA SOLO SLP - 11/24/2018 13:19 EDT TRAFFIC LINE PAINTER Education Assessment Grid 2 Treatment Plan : Verbalizes understanding MAMTA OSLO SLP - 11/24/2018 13:[address] [facility] TRAFFIC LINE PAINTER Charges Speech Therapy : 1 Treatment-Swallowing : 1 MAMTA SOLO SLP - 11/24/2018 13:19 EDT Anticipated Discharge Needs, TRAFFIC LINE PAINTER Anticipated Discharge to OT : Rehab, high intensity Recommend Continued Therapy at Discharge : Yes MAMTA SOLO SLP - 11/24/2018 13:19 EDT documented in this encounter Plan of Treatment Not on file documented as of this encounter Visit Diagnoses Not on filedocumented in this encounter
--- OUTSIDE RECORDS SUMMARY | 2025-05-10 12:53 | XMS_ITS | Encounter Summary ---
Author Organization [employer] ([place], [place], [place], [place]) Address [address] [place] [address] Care Team Providers Care Refrigerating Engineer Name Role Phone Unavailable Primary Care Provider Unavailabl e Encounter Details Date Type Department Care Team (Late st Contact Info) Description 11/26/[address] [facility] [place] [address] [place] [address] ProviderErika MD [address] [place] [address] Social History Tobacco Use Types [...]
--- OUTSIDE RECORDS SUMMARY | 2025-05-10 12:53 | XMS_ITS | Referral Summary ---
Author Organization [employer] ([place], [place], [place], [place]) Address [address] [place] [address] Care Team Providers Care Literature Teacher Name Role Phone Unavailable Primary Care [...]
--- OUTSIDE RECORDS SUMMARY | 2025-05-10 12:53 | XMS_ITS | Encounter Summary ---
Author Organization [employer] ([place], [place], [place], [place]) Address [address] [place] [address] Care Team Providers Care Hat Designer Name Role Phone Unavailable Primary Care Provider Unavailabl e Encounter Details Date Type Department Care Team (Late st Contact Info) Description 11/23/2018 Transcribed Document [facility] [place] [address] [place] [address] ProviderErika MD [address] [place] [address] Social History Tobacco Use Types Packs/Day Years Used Date Smoking Tobacco: Never Assessed Sex and Gender Information Value Date Recorded Sex Assigned at Not on file Legal Sex Male 5:03 PM CDT Gender Identity Not on file Sexual Orientation Not on file documented as of this encounter Miscellaneous Notes * Cerner Conversion Note - Historical ProviderMD - 11/23/2018 1:36 PM CDT Higher Level Teaching Assistant Details Entered On: 11/23/2018 16:44 EDT Performed [...]
--- OUTSIDE RECORDS SUMMARY | 2025-05-10 12:53 | XMS_ITS | Encounter Summary ---
Author Organization [employer] ([place], [place], [place], [place]) Address [address] [place] [address] Care Team Providers Care Animal Feeder Name Role Phone Unavailable Primary Care Provider Unavailabl e Encounter Details Date Type Department Care Team (Late st Contact Info) Description 11/16/2018 Transcribed Document [facility] [place] [address] [place] [address] ProviderErika MD [address] [place] [address] Social History Tobacco Use Types [...] 11/16/2018 12:27 EDT by [facility]in [facility]att [facility] Phone Call for Consults Consult Phone Call/Page Attempt : First call Lorin Pratt [facility] - 11/16/2018 13:34 EDT documented in this encounter Plan of Treatment Not on file documented as of this encounter Visit Diagnoses Not on filedocumented in this encounter
--- OUTSIDE RECORDS SUMMARY | 2025-05-10 12:53 | XMS_ITS | Encounter Summary ---
Author Organization [employer] ([place], [place], [place], [place]) Address [address] [place] [address] Care Team Providers Care Swimming Pool Cleaner Name Role Phone Unavailable Primary Care Provider Unavailabl e Encounter Details Date Type Department Care Team (Late st Contact Info) Description 11/05/2018 Transcribed Document [facility] [place] Medicine [address] [place] [address] ProviderErika MD [address] [place] [address] Social History Tobacco Use Types [...]
--- OUTSIDE RECORDS SUMMARY | 2025-05-10 12:53 | XMS_ITS | Encounter Summary ---
Author Organization [employer] ([place], [place], [place], [place]) Address [address] [place] [address] Care Team Providers Care Copy Clerk Name Role Phone Unavailable Primary Care Provider Unavailabl e Encounter Details Date Type Department Care Team (Late st Contact Info) Description 11/20/2018 Transcribed Document [facility] Pulm & Critical Care Medicine [address] [facility] [facility] [address] [place] [address] Eloy Rodrigues MD [address] [place], [place] [id number] Social History Tobacco Use Types Packs/Day Years Used Date Smoking Tobacco: Never Assessed Sex and Gender Information Value Date Recorded Sex Assigned at Not on file Legal Sex Male 5:03 PM CDT Gender Identity Not on file Sexual Orientation Not on file documented as of this encounter Miscellaneous Notes * Cerner Conversion Note - lEoy Rodrigues MD - 11/20/2018 5:32 PM EDT [...] Trans: 11/20/2018 22:52:43 Processed: 11/22/2018 09:57:30 [place] CC1: Eloy Rodrigues M.D. documented in this encounter Plan of Treatment Not on file documented as of this encounter Visit Diagnoses Not on filedocumented in this encounter
--- OUTSIDE RECORDS SUMMARY | 2025-05-10 12:53 | XMS_ITS | Encounter Summary ---
Author Organization [employer] ([place], [place], [place], [place]) Address [address] [place] [address] Care Team Providers Care Dictaphone Operator Name Role Phone Unavailable Primary Care Provider Unavailabl e Encounter Details Date Type Department Care Team (Late st Contact Info) Description 11/16/2018 Transcribed Document [facility] [place] Family Medicine [address] [place] [address] ProviderErika MD [address] [place] [address] Social History Tobacco Use Types [...] Ambulatory Legal Guardian : Spouse Support Person/Patient Nanosystems Engineer : Yes Support Person/Pt Rep Name : Connie- Sumeet - son Support Person/Pt Rep Contact Information : [phone] home [phone] - cell Want Family/Rep/Phys Notified of Admit [...] : Patient, Medical Record Primary Language : Czech Preferred Communication Mode : Verbal Communication Barrier [...] Scale Risk Level : 25-45 Medium Risk [place] Fall Interventions : Adequate lighting, Assistive devices [...] Home/Independent. (Last Updated: 11/15/2018 13:53:56 EDT by ANEGLA KEY RN) Height and Weight, Clinical Dosing Height Source : Measured Height Entry Format : [place] Height, Feet : 6 ft(Converted to: 183 cm, 72 Inch) Height, Inches : 1 Inch(Converted to: 0 ft 1 Inch, 2.54 cm) Clinical Height : 185.42 cm Weight Source : Standing scale Weight Entry Format : [place] Clinical Dosing Weight : 79.23 kg Weight, Pounds : 174 lb Weight, Ounces : 5 oz Body Surface Area (BSA) : 2.03 m2 Body Mass Index : 23 kg/m2 [place] Body Weight : 79 kg FROY NEIL [...]
--- OUTSIDE RECORDS SUMMARY | 2025-05-10 12:53 | XMS_ITS | Encounter Summary ---
Author Organization [employer] ([place], [place], [place], [place]) Address [address] [place] [address] Care Team Providers Care Supervisor [place] Name Role Phone Unavailable Primary Care Provider Unavailabl e Encounter Details Date Type Department Care Team (Late st Contact Info) Description 11/16/2018 Transcribed Document [facility] [place] Family Medicine [address] [place] [address] ProviderErika MD [address] [place] [address] Social History Tobacco Use [...] PROCEDURE: 1. Left radial arterial line. 2. [place]-Jovanna catheter. SURGEON: Porfirio Gaxiola IV, MD Procedure [...] introducer was applied over guidewire, then a [place]-Ojvanna catheter was advanced down MAC introducer to [...]
--- OUTSIDE RECORDS SUMMARY | 2025-05-10 12:53 | XMS_ITS | Encounter Summary ---
Author Organization [employer] ([place], [place], [place], [place]) Address [address] [place] [address] Care Team Providers Care Trigonometry Tutor Name Role Phone Unavailable Primary Care Provider Unavailabl e Encounter Details Date Type Department Care Team (Late st Contact Info) Description 11/28/2018 Transcribed Document [facility] [place] Family Medicine [address] [place] [address] ProviderErika MD [address] [place] [address] Social History Tobacco Use Types [...]
--- OUTSIDE RECORDS SUMMARY | 2025-05-10 12:53 | XMS_ITS | Encounter Summary ---
Author Organization [employer] ([place], [place], [place], [place]) Address [address] [place] [address] Care Team Providers Care Core Winder Machine Operator Name Role Phone Unavailable Primary Care Provider Unavailabl e Encounter Details Date Type Department Care Team (Late st Contact Info) Description 11/24/2018 Transcribed Document [facility] [place] Family Medicine [address] [place] [address] ProviderErika MD [address] [place] [address] Social History Tobacco Use Types [...] On: 11/24/2018 13:21 EDT by ODALYS FAULKNER Rn-Refinery Operator Helper Crude UnitPerforator Operator Oil Well Note Care Management Note : 11/24/18 Andra from [facility] called to let me know they started a precert on this pt. CF Care Management Note Report : ODALYS FAULKNER Rn-Refinery Operator Helper Crude Unit - 11/22/18 13:56:32 11/22/18 Pt has had a cva. Spoke to his Connie and son Sumeet at the bedside. Pt is lfacid on the left side. Discussed the need for STR and they decided on [facility]. Sent pt info via Circle to [facility]. CF Documentation Status Complete : Yes ODALYS FAULKNER Rn-Refinery Operator Helper Crude Unit - 11/24/2018 13:21 EDT Electronically signed by Parveen [facility] Conversion Edi Programmer Cerjuju at 12/08/2022 12:31 PM CDT documented in this encounter Plan of Treatment Not on file documented as of this encounter Visit Diagnoses Not on filedocumented in this encounter
--- OUTSIDE RECORDS SUMMARY | 2025-05-10 12:53 | XMS_ITS | Encounter Summary ---
Author Organization [employer] ([place], [place], [place], [place]) Address [address] [place] [address] Care Team Providers Care Trimmer Hand Name Role Phone Unavailable Primary Care Provider Unavailabl e Encounter Details Date Type Department Care Team (Late st Contact Info) Description 11/16/2018 Transcribed Document [facility] [place] Family Medicine [address] [place] [address] ProviderErika MD [address] [place] [address] Social History Tobacco Use Types [...] anterior descending). SURGEON: Porfirio Gaxiola IV, MD GLASS ENAMEL MIXER: Saud Oliver (AMANDA) ANESTHESIA: General orotracheal. CLINICAL [...] Gaxiola IV, M.D. Electronically signed by Parveen [facility] Conversion Ranch Hand Livestock Cerner at 12/08/2022 12:25 PM CDT documented in this encounter Plan of Treatment Not on file documented as of this encounter Visit Diagnoses Not on filedocumented in this encounter
--- OUTSIDE RECORDS SUMMARY | 2025-05-10 12:53 | XMS_ITS | Encounter Summary ---
Author Organization [employer] ([place], [place], [place], [place]) Address [address] [place] [address] Care Team Providers Care Internal Audit Director Name Role Phone Unavailable Primary Care Provider Unavailabl e Encounter Details Date Type Department Care Team (Late st Contact Info) Description 11/16/2018 Transcribed Document [facility] [place] Family Medicine [address] [place] [address] ProviderErika MD [address] [place] [address] Social History Tobacco Use Types [...] FROY NEIL RN - 11/16/2018 18:59 EDT Electronically signed by Christina Saini Conversion Senior Mobile Web Developer Cerner at 12/08/2022 12:37 PM CDT documented in this encounter Plan of Treatment Not on file documented as of this encounter Visit Diagnoses Not on filedocumented in this encounter
--- OUTSIDE RECORDS SUMMARY | 2025-05-10 12:53 | XMS_ITS | Encounter Summary ---
Author Organization [employer] ([place], [place], [place], [place]) Address [address] [place] [address] Care Team Providers Care Senior Java Web Developer Name Role Phone Unavailable Primary Care Provider Unavailabl e Encounter Details Date Type Department Care Team (Late st Contact Info) Description 11/21/2018 Transcribed Document [facility] [place] Medicine [address] [place] [address] ProviderErika MD [address] [place], [...] 11/21/2018 9:37 EDT by José Miguel Tran, [facility] Phone Call for Consults Consult Phone Call/Page Attempt : Other: Nurse spoke to Dr. Amaro. José Miguel Trna [facility] - 11/21/2018 9:40 EDT documented in this encounter Plan of Treatment Not on file documented as of this encounter Visit Diagnoses Not on filedocumented in this encounter
--- OUTSIDE RECORDS SUMMARY | 2025-05-10 12:53 | XMS_ITS | Encounter Summary ---
Author Organization [employer] ([place], [place], [place], [place]) Address [address] [place] [address] Care Team Providers Care Die Maker Electronic Name Role Phone Unavailable Primary Care Provider Unavailabl e Encounter Details Date Type Department Care Team (Late st Contact Info) Description 11/30/2018 Transcribed Document [facility] [place] [address] [place] [address] ProviderErika MD [address] [place] [address] Social History Tobacco Use [...] Bed scale Routine Weight Entry Format : [place] Routine Weight, Pounds : 164 lb Routine Weight, Ounces : 1 oz Routine Weight Calculation : 74.57 kg Height Source : Measured Height Entry Format : [place] Height, Feet : 6 ft Height, Inches [...]
--- OUTSIDE RECORDS SUMMARY | 2025-05-10 12:53 | XMS_ITS | Encounter Summary ---
Author Organization [employer] ([place], [place], [place], [place]) Address [address] [place] [address] Care Team Providers Care Fountain Operator Name Role Phone Unavailable Primary Care Provider Unavailabl e Encounter Details Date Type Department Care Team (Late st Contact Info) Description 11/21/2018 Transcribed Document [facility] [place] Family Medicine [address] [place] [address] ProviderErika MD [address] [place] [address] Social History Tobacco Use Types [...]
--- OUTSIDE RECORDS SUMMARY | 2025-05-10 12:53 | XMS_ITS | Encounter Summary ---
Author Organization [employer] ([place], [place], [place], [place]) Address [address] [place] [address] Care Team Providers Care Demonstrator Electric Gas Appliances Name Role Phone Unavailable Primary Care Provider Unavailabl e Encounter Details Date Type Department Care Team (Late st Contact Info) Description 11/28/2018 Transcribed Document [facility] [place] [address] [place] [address] ProviderErika MD [address] [place], [place] [id number] Social History Tobacco Use Types Packs/Day Years [...] mg, Oral, At Bedtime saliva substitutes: 1 [place], Buccal, Q2H, PRN: Other (See Comment) warfarin: [...] Q1H saliva substitute liq 59 mL 1 [place], Buccal, Q2H Problem list: Medical Aneurysm, thoracic aortic / SNOMED CT 8435289886 / Confirmed Aortic valve insufficiency / SNOMED CT 741293117 / Confirmed Arthritis / SNOMED CT 5492419 / Confirmed At risk for sleep apnea / IMO [id number] / Confirmed CAD (coronary artery disease) / SNOMED CT 70970124 / Confirmed HTN - Hypertension / SNOMED CT 4112451929 / Confirmed Hypothyroidism / SNOMED CT 44824677 / Confirmed Frequent urination / SNOMED CT 128943414 / Confirmed Nocturia / SNOMED CT 889507044 / Confirmed Prostate stricture / SNOMED CT 67848150 / Confirmed, Active Problems (13) Aneurysm, thoracic [...] swelling - improved today. Integumentary: Warm, Dry, [place], incision is C/D/I. Neurologic: Alert, Oriented, left [...] (Current Encounter/Past 24 Hours) PT 20.8 Second(s) NC 11/28/2018 09:08 PTT 27.6 Second(s) 11/28/2018 08:53 INR 2.0 NC 11/28/2018 09:08 . Impression and Plan Plan: [...] of discharge- CM has sent information to [facility] -Transfer [facility] 11/24/18 -POD#8 -Awaiting transfer to [facility] -Awaiting response from [facility] 11/25/18 -left upper extremity venous doppler - doppler this am positive for LUE DVT - will start coumadin and heparin bridge -awaiting [facility] 11/26/18 -Heparin drip and coumadin for LUE DVT Left arm swelling improved today INR 1.1 today, INR goal 2-3 Possibly transfer to [facility] this weekend 11/27/18: Left arm swelling continues to improve Continues on Coumadin and heparin bridge INR: 1.4 (1.1 yesterday) goal: 2 to 3 [facility] soon,? Tomorrow 11/28/18 BP in 70s-80s this [...]
--- OUTSIDE RECORDS SUMMARY | 2025-05-10 12:53 | XMS_ITS | Encounter Summary ---
Author Organization [employer] ([place], [place], [place], [place]) Address [address] [place] [address] Care Team Providers Care Public Speaking Coach Name Role Phone Unavailable Primary Care Provider Unavailabl e Encounter Details Date Type Department Care Team (Late st Contact Info) Description 12/01/2018 Transcribed Document [facility] [place] Family Medicine [address] [place] [address] ProviderErika MD [address] [place] [address] Social History Tobacco Use Types [...] and arrangements, chart reviewed, received word from [facility] that bed is available for patient today, on their stroke unit. Patient to be transported via [facility], p/u set for 3pm. RN report to be called to [phone] and discharge summary to be faxed to [phone]. Pt, RN and family aware and in agreement with plan. ANGELA NAIR Social Worker - 12/01/2018 11:35 EDT Care Management Note Report : SUZANNA HAINES Social Worker - 11/30/18 15:30:18 Covering today for D/c planning, pt back on 3E room 330. Discussed w/ Carmen from [facility] who is still following pt. She has submitted pt info to MD for approval. Pt had EGD 11/29 which revealed duodenal ulcer w/ clot but no bleeding, no intervention needed, Off heparin gtt, watching pt's INR and H & H. Speech signed off today, pt is cleared for thins. Met w/ pt and family and informed them of [facility] situation. Also discussed outpt Cardiac Rehab. They prefer to go to [facility]. Phoned them and left msg, sent pt info to them. CM will cont to follow. ANGELA NAIR Cabana Attendant - 11/26/18 11:20:05 Continue to follow for discharge needs and arrangements, chart reviewed, admission day 10, transfer from [facility], on room air, WBC=11.2, INR=1.1, PTT=55.8, on IV Heparin gtt due to DVT in left arm, MBS completed today now on regular cardiac diet with thin liquids, PT/OT following (not seen on 11/25/18) followed up with [facility] today regarding possible admission - plan is to submit for approval today after being seen by therapy. Awaiting ANGELA NAIR Cabana Attendant - 11/26/18 11:24:04 Continue to follow for discharge needs and arrangements, chart reviewed, admission day 10, transfer from [facility], on room air, WBC=11.2, INR=1.1, PTT=55.8, on IV Heparin gtt due to DVT in left arm, MBS completed today now on regular cardiac diet with thin liquids, PT/OT following (not seen on 11/25/18) followed up with [facility] today regarding possible admission - plan is to submit for approval today after being seen by therapy, for their MD approval. Once accepting MD in place, bed in place and patient is medically stable will be able to transfer due to patient not requiring a insurance prior auth. CM will continue to follow. ODALYS FAULKNER, Rn-Cabinet Finisher - 11/24/18 13:22:19 11/24/18 Andra from [facility] called to let me know they started a precert on this pt. CF ODALYS FAULKNER Rn-Cabinet Finisher - 11/22/18 13:56:32 11/22/18 Pt has had a cva. Spoke to his Connie and son Sumeet at the bedside. Pt is lfacid on the left side. Discussed the need for STR and they decided on [facility]. Sent pt info via [employer] to [facility]. CF Documentation Status Complete : Yes ANGELA NAIR Social Worker - 12/01/2018 11:24 EDT Discharge Planning Details Home Caregiver Name/Relationship : Connie King [phone] spouse Discharge Placement Needs : Rehabilitation unit/facility [...] Yes Patient/Family Notified : Connie King Spouse [phone] ANGELA NAIR Social Worker - 12/01/2018 11:35 EDT Final Discharge Disposition Note-CM Discharge To Care Management : IRF -Inpatient Rehabilitation Facility-62 Name of Receiving Facility/Provider-CM : [facility] Stroke unit ANGELA NAIR Social Worker - 12/01/2018 11:35 EDT documented in this encounter Plan of Treatment Not on file documented as of this encounter Visit Diagnoses Not on filedocumented in this encounter
--- OUTSIDE RECORDS SUMMARY | 2025-05-10 12:54 | XMS_ITS | Encounter Summary ---
Author Organization [employer] ([place], [place], [place], [place]) Address [address] [place] [address] Care Team Providers Care Locomotive Repairer Diesel Name Role Phone Unavailable Primary Care Provider Unavailabl e Encounter Details Date Type Department Care Team (Late st Contact Info) Description 11/19/2018 Transcribed Document [facility] Cardiology [address] [place] [address] Lc Armendariz MD [address] [facility] [address] [place] [address] Social History Tobacco Use Types [...] mg, Oral, At Bedtime saliva substitutes: 1 [place], Buccal, Q2H, PRN: Other (See Comment) sodium [...] of motion, Normal strength. Integumentary: Warm, Dry, [place]. Neurologic: Alert, Oriented. Psychiatric: Cooperative, Appropriate mood & affect. Results Review NOV 19 04:08 138 105 21 / H 184 4.0 28 0.70 \ NOV 19 04:08 \ L 10.0 / H 15.0 L 101 / L 30.3 \ Radiology Results (Last 48 hours) [id number] -- 11/16/2018 06:45 CR Chest 1 Vw [...]
--- OUTSIDE RECORDS SUMMARY | 2025-05-10 12:54 | XMS_ITS | Encounter Summary ---
Author Organization [employer] ([place], [place], [place], [place]) Address [address] [place] [address] Care Team Providers Care Watch Engineer Name Role Phone Unavailable Primary Care Provider Unavailabl e Encounter Details Date Type Department Care Team (Late st Contact Info) Description 11/19/2018 Transcribed Document [facility] [place] Family Medicine [address] [place] [address] ProviderErika MD [address] [place] [address] Social History Tobacco Use Types [...] TF regimen to add fiber. EST NEEDS: 6734-4575 kcal (25-30kcal/kg), 95g pro (1.2g/kg) 1. Change TF to Jevity 1.5 @ 60 ml/hr + 1 bottle [id number] daily (Provides 2040 kcal; 99 gm pro) Goal: meet est needs 2. Monitor alertness and appropriateness for PIANO PLAYER eval Goal: est safe po diet 3. Weigh pt 2x weekly Goal: no sig weight changes High Risk DAVION [address]EN RD, LD - 11/19/2018 12:43 EDT Electronically signed by Parveen, [facility] Conversion Financial Auditor Cerner at 12/08/2022 12:18 PM CDT documented in this encounter Plan of Treatment Not on file documented as of this encounter Visit Diagnoses Not on filedocumented in this encounter
--- OUTSIDE RECORDS SUMMARY | 2025-05-10 12:54 | XMS_ITS | Encounter Summary ---
Author Organization [employer] ([place], [place], [place], [place]) Address [address] [place] [address] Care Team Providers Care Stock Car Driver Name Role Phone Unavailable Primary Care Provider Unavailabl e Encounter Details Date Type Department Care Team (Late st Contact Info) Description 11/26/2018 Transcribed Document [facility] [place] [address] [place] [address] ProviderErika MD [address] [place] [address] Social History Tobacco Use Types [...] (not seen on 11/25/18) followed up with [facility] today regarding possible admission - plan is [...] Care Management Note Report : LUCIE, ODALYS, Rn-Automatic Door Mechanic - 11/24/18 13:22:19 11/24/18 Andra from [facility] called to let me know they started a precert on this pt. CF ODALYS FAULKNER, Rn-Automatic Door Mechanic - 11/22/18 13:56:32 11/22/18 Pt has had a cva. Spoke to his Connie and son Sumeet at the bedside. Pt is lfacid on the left side. Discussed the need for STR and they decided on [facility]. Sent pt info via [employer] to [facility]. CF Documentation Status Complete : Yes ANGELA NAIR, Retail Sales Consultant - 11/26/2018 11:16 EDT Electronically signed by Parveen [facility] Conversion Casting Coordinator Cerner at 12/08/2022 12:12 PM CDT documented in this encounter Plan of Treatment Not on file documented as of this encounter Visit Diagnoses Not on filedocumented in this encounter
--- OUTSIDE RECORDS SUMMARY | 2025-05-10 12:54 | XMS_ITS | Encounter Summary ---
Author Organization [employer] ([place], [place], [place], [place]) Address [address] [place] [address] Care Team Providers Care Coal Trimmer Machine Operator Name Role Phone Unavailable Primary Care Provider Unavailabl e Encounter Details Date Type Department Care Team (Late st Contact Info) Description 11/05/[address] [facility] [place] Family Medicine [address] [place] [address] ProviderErika MD [address] [place] [address] Social History Tobacco Use [...] Erika ProviderMD - 11/05/2018 12:48 PM CDT [address] [address] Patient Copy Patient Information: Name: DOTTIE VILLASENOR Current Date: 11/05/2018 12:48:54 : 1940 Patient Address: [address] [place] [id number] Patient Attending Physician: LEYLA ARMENDARIZ MD-CAR Primary Care Provider: DEMETRICE ARMIJO NP-JORGE Primary Care Provider Discharge Diagnosis: Weight on Admission: 170 lb, 0 oz Comment: Follow-up Instructions: With: Address: When: JULIO CESAR GAXIOLA [address] [place] [address], [address] [address] Business (1) 1:30 PM Comments: Follow up with Dr. Gaxiola , surgeon, October at 1:30 pm With: Address: When: JULIO CESAR [address] [place] [address] [employer] (1) 1:15 PM Comments: Follow up with [...] you are awake and alert. ??? Take mqar-aai-fiuhsyj and prescription medicines only as told by [...] 05/31/2014 Document Revised: 01/12/2017 Document Reviewed: 11/29/2016 [employer] Patient Education ? 2017 Postcard on the Run. Radial Site Care Introduction Refer to this [...] 02/26/2006 Document Revised: 01/15/2017 Document Reviewed: 01/11/2014 [employer] Patient Education ? 2017 Postcard on the Run. CIGARETTE SMOKING: The facts are clear, cigarette smoking will shorten your life. Smoking can cause many illnesses along the way. As a healthcare provider, we recommend that you stop smoking. Assistance with quitting is available by contacting 1-843-BGTZ-NOW. This is a free resource providing counseling, [...] Be sure to sign up for the [employer] patient portal, which gives you 16/03 access to your medical information ??? including these discharge instructions ??? using your computer, smartphone, or tablet. Just go to [employer] to get started. Questions? Call . [facility] would like to thank you for allowing us to assist you with your healthcare needs. HAMILTON Jarvis ROBERT H, (or door to door sales representative) have received the above patient education materials/instructions and have verbalized understanding: Patient Signature _ Date/Time Patient Tour Sales Representative Signature (if needed) Date/Time Clinician/Hospital Tour Sales Representative Signature (if needed) Date/Time Electronically signed by Parveen, [facility] Conversion Pan Cleaner Cerner at 12/08/2022 12:14 PM CDT documented in this encounter Plan of Treatment Not on file documented as of this encounter Visit Diagnoses Not on filedocumented in this encounter
--- OUTSIDE RECORDS SUMMARY | 2025-05-10 12:54 | XMS_ITS | Encounter Summary ---
Author Organization [employer] ([place], [place], [place], [place]) Address [address] [place] [address] Care Team Providers Care Incinerator Operator Name Role Phone Unavailable Primary Care Provider Unavailabl e Encounter Details Date Type Department Care Team (Late st Contact Info) Description 11/27/2018 Transcribed Document [facility] [place] Family Medicine [address] [place] [address] ProviderErika MD [address] [place], [place] [id number] Social History Tobacco Use Types Packs/Day Years [...] 1940 Associated Diagnoses: CAD (coronary artery disease), [place] coronary artery; Thrombocytopenia; Coronary artery disease; HTN [...] swelling - improved today. Integumentary: Warm, Dry, [place], incision is C/D/I. Neurologic: Alert, Oriented, left [...] (Current Encounter/Past 24 Hours) PT 14.8 Second(s) GA 11/27/2018 07:36 PTT 55.8 Second(s) GA 11/26/2018 11:12 INR 1.4 [place] 11/27/2018 07:36 . Impression and Plan Plan: [...] discharge- has sent information to [facility] -Transfer to [facility] 11/24/18 -POD#8 -Awaiting transfer to [facility] -Awaiting response from [facility] 11/25/18 -left upper extremity venous doppler - doppler this am positive for LUE DVT - will start coumadin and heparin bridge -awaiting [facility] 11/26/18 -Heparin drip and coumadin for LUE DVT Left arm swelling improved today INR 1.1 today, INR goal 2-3 Possibly transfer to [facility] this weekend 11/27/18: Left arm swelling continues to improve Continues on Coumadin and heparin bridge INR: 1.4 (1.1 yesterday) goal: 2 to 3 [facility] soon,? Tomorrow EF 55-60% per echo 11/16/18 DVT Prophylaxis: SCDs Diagnosis CAD (coronary artery disease), [place] coronary artery - Admitting, Medical. Thrombocytopenia - [...]
--- OUTSIDE RECORDS SUMMARY | 2025-05-10 12:54 | XMS_ITS | Encounter Summary ---
Author Organization [employer] ([place], [place], [place], [place]) Address [address] [place] [address] Care Team Providers Care Commercial Banker Name Role Phone Unavailable Primary Care Provider Unavailabl e Encounter Details Date Type Department Care Team (Late st Contact Info) Description 11/05/2018 Transcribed Document [facility] [place] [address] [place] [address] ProviderErika MD [address] [place] [address] Social History Tobacco Use Types [...] 11/05/2018 12:46 EDT Electronically signed by Parveen [facility] Conversion Building Principal Cerner at 12/08/2022 12:20 PM CDT documented in this encounter Plan of Treatment Not on file documented as of this encounter Visit Diagnoses Not on filedocumented in this encounter
--- OUTSIDE RECORDS SUMMARY | 2025-05-10 12:54 | XMS_ITS | Encounter Summary ---
Author Organization [employer] ([place], [place], [place], [place]) Address [address] [place] [address] Care Team Providers Care Superintendent Oil Field Drilling Name Role Phone Unavailable Primary Care Provider Unavailabl e Encounter Details Date Type Department Care Team (Late st Contact Info) Description 11/05/2018 Transcribed Document [facility] Cardiology [address] [place] [address] Lc Armendariz MD [address] [facility] [address] [place] [address] Social History Tobacco Use Types [...] 1940 Associated Diagnoses: None Author: LC ARMENDARIZ MD-[facility] Basic Information PCP: Sanjuana Valdez [...] All Problems Prostate stricture / SNOMED CT 32695499 / Confirmed HTN - Hypertension / SNOMED CT 7331291934 / Confirmed Hypothyroidism / SNOMED CT 61468639 / Confirmed Aneurysm / SNOMED CT 5882186290 / Confirmed Disorder of prostate / SNOMED CT 65100715 / Confirmed Thyroid disease / SNOMED CT 486325889 / Confirmed Restless legs syndrome / SNOMED CT 27469177 / Confirmed Cancer of skin of face / SNOMED CT 6209418202 / Confirmed At risk for sleep apnea / IMO 91718731 / Confirmed Resolved: Bladder stone / SNOMED CT 071839796 Histories No education data available. Social & Psychosocial Habits Alcohol 04/16/2017 Alcohol Use History, Social Habits No Alcohol Use in Last Twelve Months No Substance Abuse 04/16/2017 Recreational Drug Use History No Recreational Drug Use Last 12 Months No Tobacco 04/16/2017 Smoking Status Never smoker Past Medical History: Active HTN - Hypertension (8889193887) Hypothyroidism (89706800) Family History: Entire family history is negative. [...] of motion, Normal strength. Integumentary: Warm, Dry, [place]. Neurologic: Alert, Oriented. Psychiatric: Cooperative. Review / [...]
--- OUTSIDE RECORDS SUMMARY | 2025-05-10 12:54 | XMS_ITS | Encounter Summary ---
Author Organization [employer] ([place], [place], [place], [place]) Address [address] [place] [address] Care Team Providers Care Poultry Hanger Name Role Phone Unavailable Primary Care Provider Unavailabl e Encounter Details Date Type Department Care Team (Late st Contact Info) Description 11/26/2018 Transcribed Document [facility] [place] [address] [place] [address] ProviderErika MD [address] [place], [place] [id number] Social History Tobacco Use Types Packs/Day Years [...] 1940 Associated Diagnoses: CAD (coronary artery disease), [place] coronary artery; Thrombocytopenia; Coronary artery disease; HTN [...] swelling - improved today. Integumentary: Warm, Dry, [place], incision is C/D/I. Neurologic: Alert, left sided [...] discharge- CM has sent information to [facility] -Transfer to [facility] 11/24/18 -POD#8 -Awaiting transfer to [facility] -Awaiting response from [facility] 11/25/18 -left upper extremity venous doppler - doppler this am positive for LUE DVT - will start coumadin and heparin bridge -awaiting [facility] 11/26/18 -Heparin drip and coumadin for LUE DVT Left arm swelling improved today INR 1.1 today, INR goal 2-[address] [facility] this weekend EF 55-60% per echo 11/16/18 DVT Prophylaxis: SCDs Diagnosis CAD (coronary artery disease), [place] coronary artery - Admitting, Medical. Thrombocytopenia - [...]
--- OUTSIDE RECORDS SUMMARY | 2025-05-10 12:54 | XMS_ITS | Encounter Summary ---
Author Organization [employer] ([place], [place], [place], [place]) Address [address] [place] [address] Care Team Providers Care Credit Reporting Clerk Name Role Phone Unavailable Primary Care Provider Unavailabl e Encounter Details Date Type Department Care Team (Late st Contact Info) Description 11/05/2018 Transcribed Document [facility] [place] [address] [place] [address] ProviderErika MD [address] [place] [address] Social History Tobacco Use Types [...]
--- OUTSIDE RECORDS SUMMARY | 2025-05-10 12:54 | XMS_ITS | Encounter Summary ---
Author Organization [employer] ([place], [place], [place], [place]) Address [address] [place] [address] Care Team Providers Care Allopathic Doctor Name Role Phone Unavailable Primary Care Provider Unavailabl e Encounter Details Date Type Department Care Team (Late st Contact Info) Description 11/27/2018 Transcribed Document [facility] [place] [address] [place] [address] ProviderErika MD [address] [place], [place] [id number] Social History Tobacco Use Types Packs/Day Years Used Date Smoking Tobacco: Never Assessed Sex and Gender Information Value Date Recorded Sex Assigned at Not on file Legal Sex Male 5:03 PM CDT Gender Identity Not on file Sexual Orientation Not on file documented as of this encounter Miscellaneous Notes * Cerner Conversion Note - Historical ProviderMD - 11/27/2018 2:00 AM CDT Retail Furniture Sales Details Entered On: 11/27/2018 3:00 EDT Performed [...]
--- OUTSIDE RECORDS SUMMARY | 2025-05-10 12:54 | XMS_ITS | Encounter Summary ---
Author Organization [facility] ([place], [place], [place], [place]) Address [address] [place] [address] Care Team Providers Care Supplier Quality Manager Name Role Phone Unavailable Primary Care Provider Unavailabl e Encounter Details Date Type Department Care Team (Late st Contact Info) Description 11/26/2018 Transcribed Document [facility] [place] [address] [place] [address] ProviderErika MD [address] [place] [address] Social History Tobacco Use Types [...] On: 11/26/2018 9:15 EDT by JOSSUE RODRÍGUEZ LENS INSERTER General Information Visit Type, LENS INSERTER : Re-Evaluation Patient Orders : LENS INSERTER Fxoliver Limitation Documentation x 1 -111 Start: 11/25/18 10:29:25 EDT - SYSTEM, SYSTEM Speech Language Pathology Modified Barium Swallow Study - Start: 11/26/18 7:00:00 EDT, Routine, For Other (see special instructions), Dysphagia -111 GISSEL ZHANG PA LENS INSERTER Fxnl Limitation Documentation - Start: 11/20/18 9:37:47 EDT, Continuous Order -111 SYSTEM, SYSTEM Speech Language Pathology Additional Tx - Start: 11/20/18 9:36:00 EDT, For Dysphagia, Continuous Order -111 Admission Date : Admission Date/Time: 11/16/18 06:45:00 Medical Chart Reviewed, LENS INSERTER : Yes Personal Devices : Personal Devices [...] Thoracic aortic aneurysm, without rupture Therapy Diagnosis, LENS INSERTER : functional oropharyngeal skills Previous Speech/Language Evaluations : N/A Previous Swallow Precautions : Bedside 11/20 recommended instrumental prior to initiating PO diet, FEES recommended reg/nectar. Pt has participated in tx and is ready for a repeat study Previous Cognitive Evaluations : this admit Diet/Intake Prior to Current Admission : Regular/thin Diet/Intake During Current Admission : reg/thin following MBS Intubation Comment, LENS INSERTER : 11/16-11/17 Vital Signs RTF : Vitals [...] 9:15 EDT General Status Patient Received Status, LENS INSERTER : Up in chair Patient Left Status, LENS INSERTER : Up in chair JOSSUE RODRÍGUEZ SLP [...] Consistencies Trialed MB/VFSS : Thin by straw, [place] by straw, Pudding JOSSUE RODRÍGUEZ, ERIC - 11/26/2018 9:15 EDT Swallow Impressions Impressions, MBSS/VFSS : Functional swallow for oral intake JOSSUE RODRÍGUEZ SLP - 11/26/2018 9:15 EDT 8 Point Penetration/Aspiration Grid Thin by Straw : 1 [place] by Straw : 1 Pudding : 1 [...] Discussed briefly with CTS PA. JOSSUE RODRÍGUEZ, LENS INSERTER - 11/26/2018 9:15 EDT Swallow Recommendations Recommended Diet Type, SwRec : Regular Recommended Liquid Diet, SwRec : Thin Swallow Position, SwRec : Upright 90 degrees Supervision Level w/Meals, SwRec : Independent, modified Recommended Med Present, SwRec : As per nursing JOSSUE RODRÍGUEZ SLP - 11/26/2018 9:15 EDT Therapy Indication Assessment LENS INSERTER Indicated : No LENS INSERTER Not Indicated : At prior level of function JOSSUE RODRÍGUEZ SLP - 11/26/2018 9:15 EDT Swallow Plan/Goals Swallow LTG Grid LENS INSERTER Long-Term Goal #1 LENS INSERTER Chip Frier Goal #2 Swallow LTG : Establish safe [...] : 11/22/2018 EDT 11/26/2018 EDT 11/26/2018 EDT JOSSEU RODRÍGUEZ SLP - 11/26/2018 9:15 EDT JOSSUE RODRÍGUEZ SLP - 11/26/2018 9:15 EDT JOSSUE RODRÍGUEZ SLP - 11/26/2018 9:15 EDT JOSSUE RODRÍGUEZ SLP - 11/26/2018 9:15 EDT Education Barriers To Learning : Cognitive deficit Individuals Taught : Patient JOSSUE RODRÍGUEZ SLP - 11/26/2018 9:15 EDT LENS INSERTER Education Assessment Grid 1 Aspiration : Needs further teaching Diet Recommendation : Needs further teaching JOSSUE RODRÍGUEZ SLP - 11/26/2018 9:[address] [facility] LENS INSERTER Charges Modified Barium Swallow : 1 JOSSUE RODRÍGUEZ SLP - 11/26/2018 9:15 EDT documented in this encounter Plan of Treatment Not on file documented as of this encounter Visit Diagnoses Not on filedocumented in this encounter
--- OUTSIDE RECORDS SUMMARY | 2025-05-10 12:54 | XMS_ITS | Encounter Summary ---
Author Organization [employer] ([place], [place], [place], [place]) Address [address] [place] [address] Care Team Providers Care Ware Finisher Name Role Phone Unavailable Primary Care Provider Unavailabl e Encounter Details Date Type Department Care Team (Late st Contact Info) Description 11/05/2018 Transcribed Document [facility] [place] [address] [place] [address] ProviderErika MD [address] [place] [address] Social History Tobacco Use [...] Source : Stated Height Entry Format : Swift Height, Feet : 6 ft(Converted to: 183 cm, 72 Inch) Height, Inches : 1 Inch(Converted to: 0 ft 1 Inch, 2.54 cm) Clinical Height : 185.42 cm Weight Source : Standing scale Weight Entry Format : Swift Clinical Dosing Weight : 77.27 kg Weight, Pounds : 170 lb Body Surface Area (BSA) : 2.01 m2 Body Mass Index : 22.5 kg/m2 [place] Body Weight : 79 kg SRIRAM PATEL [...] Thoughts of Harming/Killing Yourself : No SRIRAM APTEL RN - 11/05/2018 8:49 EDT Advance Directive Patient has Advance Directive *Q : No, patient refuses Advance Directive information SRIRAM PATEL RN - 11/05/2018 8:49 EDT Spiritual/Cultural Needs Significant Loss/Crisis in Past 3 Years : No Any Spiritual/Cultural Needs or Requests : No Catholic Preference : Baptism SRIRAM PATEL RN - 11/05/2018 8:49 EDT [...] Obtained From : Patient Primary Language : Montenegrin Preferred Communication Mode : Verbal Communication Barrier [...] Scale Risk Level : 0-24 Low Risk [place] Fall Interventions : Adequate lighting, Bed in [...] Oriented [place] Eye Opening Response : Spontaneous [place] Coma Score : 15 SRIRAM PATEL RN - 11/05/2018 8:49 EDT documented in this encounter Plan of Treatment Not on file documented as of this encounter Visit Diagnoses Not on filedocumented in this encounter
--- OUTSIDE RECORDS SUMMARY | 2025-05-10 12:54 | XMS_ITS | Encounter Summary ---
Author Organization [employer] ([place], [place], [place], [place]) Address [address] [place] [address] Care Team Providers Care Braille Translator Name Role Phone Unavailable Primary Care Provider Unavailabl e Encounter Details Date Type Department Care Team (Late st Contact Info) Description 11/19/2018 Transcribed Document [facility] [place] [address] [place] [address] ProviderErika MD [address] [place], [place] [phone] Social History Tobacco Use Types Packs/Day Years [...] 1940 Associated Diagnoses: CAD (coronary artery disease), [place] coronary artery; Thrombocytopenia; Coronary artery disease; HTN [...] S1, S2, No edema. Integumentary: Warm, Dry, [place], incision is C/D/I, He did not follow [...] Prophylaxis: SCDs Diagnosis CAD (coronary artery disease), [place] coronary artery - Admitting, Medical. Thrombocytopenia - [...]
--- OUTSIDE RECORDS SUMMARY | 2025-05-10 12:54 | XMS_ITS | Encounter Summary ---
Author Organization [employer] ([place], [place], [place], [place]) Address [address] [place] [address] Care Team Providers Care Level Vial Setter Name Role Phone Unavailable Primary Care Provider Unavailabl e Encounter Details Date Type Department Care Team (Late st Contact Info) Description 11/05/2018 Transcribed Document [facility] [place] [address] [place] [address] ProviderErika MD [address] [place] [address] Social History Tobacco Use Types [...] you are awake and alert. ??? Take nkcx-xnq-yvqfeno and prescription medicines only as told by [...] 05/31/2014 Document Revised: 01/12/2017 Document Reviewed: 11/29/2016 [employer] Interactive Patient Education ? 2017 [employer] Pulmonary Medicine Radial Site Care Introduction [...] 01/11/2014 Elsevier Interactive Patient Education ? 2017 [employer] documented in this encounter Plan of Treatment Not on file documented as of this encounter Visit Diagnoses Not on filedocumented in this encounter
--- OUTSIDE RECORDS SUMMARY | 2025-05-10 12:54 | XMS_ITS | Encounter Summary ---
Author Organization [employer] ([place], [place], [place], [place]) Address [address] [place] [address] Care Team Providers Care Sight Effects Specialist Name Role Phone Unavailable Primary Care Provider Unavailabl e Encounter Details Date Type Department Care Team (Late st Contact Info) Description 11/27/2018 Transcribed Document [facility] [place] [address] [place] [address] ProviderErika MD [address] [place], [...]
--- OUTSIDE RECORDS SUMMARY | 2025-05-10 12:54 | XMS_ITS | Encounter Summary ---
Author Organization [employer] ([place], [place], [place], [place]) Address [address] [place] [address] Care Team Providers Care Skill Training Program Coordinator Name Role Phone Unavailable Primary Care Provider Unavailabl e Encounter Details Date Type Department Care Team (Late st Contact Info) Description 11/27/2018 Transcribed Document [facility] [place] [address] [place] [address] ProviderErika MD [address] [place] [address] Social History Tobacco Use Types [...]
[2025-05-10] MEDS: ERTAPENEM SODIUM 1 GM VIAL IM (13:14)
[2025-05-10 13:15] VITALS: BP 180/95; PULSE 82; RESP 18; O2SAT 95
== END 2025-05-10 13:20 | disposition home or self-care (01) ==
LOC: INF 12:49
PROVIDERS: PCP Internal Medicine; Visit Provider Internal Medicine
DX: N39.0 Urinary tract infection, site not specified (principal); B96.20 Unspecified Escherichia coli [E. coli] as the cause of diseases classified elsewhere
CPT/HCPCS: 96372; J1335

== ENCOUNTER 2025-05-11 13:07 | Outpatient (CLI) | payer MEDICARE, SELFPAY ==
--- OUTSIDE RECORDS SUMMARY | 2025-05-11 13:10 | XMS_ITS | Clinical Summary ---
Author Organization [facility] Address [address] [place] [phone] Phone Care Team Providers Care Production Painter Name Role Phone Svitlana Manley MD Primary [...] [place] A [place] B Care Teams Production Painter Relationship Specialty Start Date End Date Svitlana Manley MD [address] [place] [phone] PCP - General Family Medicine 04/10/16
--- OUTSIDE RECORDS SUMMARY | 2025-05-11 13:10 | XMS_ITS | Clinical Summary ---
Author Organization Address [address] [place] [address] Care Team Providers Care Media Services Coordinator Name Role Phone Clifford Horner MD Primary Care Provider [phone] Allergies No known active allergies Medications dutasteride [...] r (1 - 1-dose 75+ series) 2014 [id number] Vaccine (3 - Moderna risk series) 02/11/2021 [...] complete this topic Insurance MEDICARE Care Teams Media Services Coordinator Relationship Specialty Start Date End Date Clifford Horner MD [address] [facility] [address] [place] [address] PCP - General 07/14/24
--- OUTSIDE RECORDS SUMMARY | 2025-05-11 13:10 | XMS_ITS | Encounter Summary ---
Author Organization [facility] Address [address] [place] [address] Care Team Providers Care Knurling Machine Operator Name Role Phone Sanjuana aVldez APRN Primary Care Provider [phone] Clifford Horner MD Primary Care Provider [phone] Encounter Details Date Type Department Care Team (Late st Contact Info) Description 06/02/2022 Community [facility] Community Practice [address] [place] [address] Joanna Zamora, DPM [address] [place], [place] [id number] Contracture of left ankle (Primary Dx); Contracture [...] foot documented in this encounter Care Teams Knurling Machine Operator Relationship Specialty Start Date End Date Sanjuana Valdez APRN [address] [place] [address] PCP - General 01/04/21 07/13/24 Clifford Horner MD [address] [place] [address] PCP - General 07/14/24 documented as of this encounter
[2025-05-11] MEDS: ERTAPENEM SODIUM 1 GM VIAL IM (13:27)
[2025-05-11 13:30] VITALS: BP 192/89; PULSE 79; RESP 18; TEMP 36.6; O2SAT 98
== END 2025-05-11 13:40 | disposition home or self-care (01) ==
LOC: INF 13:08
PROVIDERS: PCP Internal Medicine; Visit Provider Internal Medicine
DX: N39.0 Urinary tract infection, site not specified (principal); B96.20 Unspecified Escherichia coli [E. coli] as the cause of diseases classified elsewhere; Z16.12 Extended spectrum beta lactamase (ESBL) resistance
CPT/HCPCS: 96372; J1335

== ENCOUNTER 2025-05-12 13:15 | Outpatient (CLI) | payer MEDICARE, SELFPAY ==
--- OUTSIDE RECORDS SUMMARY | 2025-05-12 13:18 | XMS_ITS | Clinical Summary ---
Author Organization [facility] Address [address] [place] [phone] Phone Care Team Providers Care Rail Flaw Detector Operator Name Role Phone Svitlana Manley MD Primary [...] [place] PART A [place] B Care Teams Rail Flaw Detector Operator Relationship Specialty Start Date End Date Svitlana Manley MD [address] [place] [phone] PCP - General Family Medicine 04/10/16
--- OUTSIDE RECORDS SUMMARY | 2025-05-12 13:18 | XMS_ITS | Clinical Summary ---
Author Organization [facility] Address [address] [place] [address] Care Team Providers Care Talend Developer Name Role Phone Clifford Horner MD Primary Care Provider [phone] Allergies No known active allergies Medications dutasteride [...] r (1 - 1-dose 75+ series) 2014 [id number]-08 Vaccine (3 - Moderna risk series) 02/11/2021 [...] complete this topic Insurance MEDICARE Care Teams Talend Developer Relationship Specialty Start Date End Date Clifford Horner MD [address] [facility] [address] [place] [address] PCP - General 07/14/24
--- OUTSIDE RECORDS SUMMARY | 2025-05-12 13:18 | XMS_ITS | Encounter Summary ---
Author Organization Healthcare Address [address] [place] [address] Care Team Providers Care Supervisor Broadloom Name Role Phone Sanjuana Valdez APRN Primary Care Provider [phone] lCifford Horner MD Primary Care Provider [phone] Encounter Details Date Type Department Care Team (Late st Contact Info) Description 06/02/2022 Community [facility] Community Practice [address] [place] [address] Joanna Zamora, DPM [address] [place] [address] [place], [place] [phone] Contracture of left ankle (Primary Dx); Contracture [...] foot documented in this encounter Care Teams Supervisor [place]loom Relationship Specialty Start Date End Date Sanjuana Valdez APRN [address] [place] [address] PCP - General 01/04/21 07/13/24 Clifford Horner MD [address] [place] [address] PCP - General 07/14/24 documented as of this encounter
[2025-05-12] MEDS: ERTAPENEM SODIUM 1 GM VIAL IM (13:28)
[2025-05-12 13:40] VITALS: BP 152/87; PULSE 77; RESP 20; O2SAT 95
== END 2025-05-12 23:59 | disposition home or self-care (01) ==
LOC: INF 13:16
PROVIDERS: PCP Internal Medicine; Visit Provider Internal Medicine
DX: N39.0 Urinary tract infection, site not specified (principal); B96.20 Unspecified Escherichia coli [E. coli] as the cause of diseases classified elsewhere
CPT/HCPCS: 96372; J1335

== ENCOUNTER 2025-05-13 13:02 | Outpatient (CLI) | payer MEDICARE, SELFPAY ==
--- OUTSIDE RECORDS SUMMARY | 2025-05-13 13:06 | XMS_ITS | Encounter Summary ---
Author Organization [employer] ([place], [place], [place], [place]) Address [address] [place] [address] Care Team Providers Care Third Helper Name Role Phone Unavailable Primary Care Provider Unavailabl e Encounter Details Date Type Department Care Team (Late st Contact Info) Description 11/23/2018 Transcribed Document [facility] [place] Family Medicine [address] [place] [address] ProviderErika MD [address] [place] [address] Social History Tobacco Use Types [...] Time of Assessment : 11/23/2018 20:00 EDT [facility] Clinician Administering Scale : SHELDON MUELLER [...] in one limb NIH Sensory (8) : Jeyy-gh-jxoavzne sensory loss NIH Best Language (9) : No aphasia NIH Dysarthria (10) : Normal Extinction and Inattention (11) : No abnormality NIH Scale Score : 9 SHELDON MUELLER RN - 11/23/2018 20:14 EDT Electronically signed by Christina Saini Conversion Java User Interface Developer Cerner at 12/08/2022 12:13 PM CDT documented in this encounter Plan of Treatment Not on file documented as of this encounter Visit Diagnoses Not on filedocumented in this encounter
--- OUTSIDE RECORDS SUMMARY | 2025-05-13 13:06 | XMS_ITS | Encounter Summary ---
Author Organization [employer] ([place], [place], [place], [place]) Address [address] [place] [address] Care Team Providers Care Director Of Nuclear Medicine Name Role Phone Unavailable Primary Care Provider Unavailabl e Encounter Details Date Type Department Care Team (Late st Contact Info) Description 11/29/2018 Transcribed Document [facility] [place] Family Medicine [address] [place] [address] ProviderErika MD [address] [place] [address] Social History Tobacco Use Types [...]
--- OUTSIDE RECORDS SUMMARY | 2025-05-13 13:06 | XMS_ITS | Encounter Summary ---
Author Organization [employer] ([place], [place], [place], [place]) Address [address] [place] [address] Care Team Providers Care Film Sound Coordinator Name Role Phone Unavailable Primary Care Provider Unavailabl e Encounter Details Date Type Department Care Team (Late st Contact Info) Description 11/29/2018 Transcribed Document [facility] [place] [address] [place] [address] ProviderErika MD [address] [place] [address] Social History Tobacco Use Types Packs/Day Years Used Date Smoking Tobacco: Never Assessed Sex and Gender Information Value Date Recorded Sex Assigned at Not on file Legal Sex Male 5:03 PM CDT Gender Identity Not on file Sexual Orientation Not on file documented as of this encounter Miscellaneous Notes * [employer]ner Conversion Note - Erika ProviderMD - 11/29/2018 2:30 PM CDT [facility] Onel PreOp Summary Primary Physician: RIGOBERTO YU MD Finalized Date/Time: 11/29/18 14:12:35 Pt. Name: DOTTIE VILLASENOR Ladan /Sex: 1940 Male Med Rec #: [id number] Physician: JULIO CESAR CARVALHO MD-[facility] Financial #: [id number] Pt. Type: I Room/Bed: 330/1 Admit/Disch: 11/16/18 06:45:00 - Institution: [facility] Onel PreOp Case Times Entry 1 In Preop 11/29/18 13:59:00 Ready for Holding n/a Room Patient Ready for 11/29/18 14:12:00 Surgery Patient Out of Preop 11/29/18 14:12:00 Patient Out of n/a Holding Room Last Modified By: Gem Osborne Rn 11/29/18 14:12:33 [facility] Endo PreOp Case Times Audit 11/29/18 14:12:33 News Clerk: ASHLEYSTAPLETON Modifier: ASHLEYSTAPLETON <+> 1 Patient Out of Preop <+> 1 Patient Ready for Surgery Finalized By: Gem Osborne Rn Document Signatures Signed By: Gem Osborne Rn 11/29/18 14:12 documented in this encounter Plan of Treatment Not on file documented as of this encounter Visit Diagnoses Not on filedocumented in this encounter
--- OUTSIDE RECORDS SUMMARY | 2025-05-13 13:06 | XMS_ITS | Encounter Summary ---
Author Organization [employer] ([place], [place], [place], [place]) Address [address] [place] [address] Care Team Providers Care Sorting Livestock Worker Name Role Phone Unavailable Primary Care Provider Unavailabl e Encounter Details Date Type Department Care Team (Late st Contact Info) Description 11/18/2018 Transcribed Document [facility] [place] Family Medicine [address] [place] [address] ProviderErika MD [address] [place] [address] Social History Tobacco Use Types [...] : 11/17/2018 00:00 Atherosclerotic heart disease of elem coronary artery without angina pectoris 11/17/2018 00:00 Essential (primary) hypertension 11/17/2018 00:00 Hypothyroidism, unspecified 11/17/2018 00:00 Nonrheumatic aortic (valve) insufficiency 11/17/2018 00:00 Restless legs syndrome 11/17/2018 00:00 Thoracic aortic aneurysm, without rupture 11/17/2018 00:00 Thrombocytopenia, unspecified 11/16/2018 00:00 Atherosclerotic heart disease of elem coronary artery without angina pectoris 11/16/2018 00:00 [...] SENIA QUINTANA PTA - 11/23/2018 10:24 EDT [facility] Goals Mobility/Bed Mobility LTG PT Grid Goal [...] SENIA QUINTANA PTA - 11/23/2018 10:24 EDT [place] PT Charges PT Therap. Exercise 15 min : 1 PT Ther Activities Ea 15 Min : 1 SENIA QUINTANA PTA - 11/23/2018 10:24 EDT Electronically signed by Christina Saini Conversion Senior Marketing Data Analyst Cerner at 12/12/2022 8:26 AM CDT documented in this encounter Plan of Treatment Not on file documented as of this encounter Visit Diagnoses Not on filedocumented in this encounter
--- OUTSIDE RECORDS SUMMARY | 2025-05-13 13:06 | XMS_ITS | Encounter Summary ---
Author Organization [employer] ([place], [place], [place], [place]) Address [address] [place] [address] Care Team Providers Care Directional Survey Drafter Name Role Phone Unavailable Primary Care Provider Unavailabl e Encounter Details Date Type Department Care Team (Late st Contact Info) Description 11/30/2018 Transcribed Document [facility] [place] Family Medicine [address] [place] [address] ProviderErika MD [address] [place], [place] [id number] Social History Tobacco Use Types Packs/Day Years [...] 1940 Associated Diagnoses: CAD (coronary artery disease), [place] coronary artery; Thrombocytopenia; Coronary artery disease; HTN [...] Non-distended, Normal bowel sounds. Integumentary: Warm, Dry, [place], incision is C/D/I. Neurologic: Alert, left sided [...] (Current Encounter/Past 24 Hours) PT 27.4 Second(s) DE 11/30/2018 07:23 INR 2.6 DE 11/30/2018 07:23 . Impression and Plan Plan: [...] of discharge- CM has sent information to [facility] -Transfer to [facility] 11/24/18 -POD#8 -Awaiting transfer to [facility] -Awaiting response from [facility] 11/25/18 -POD#9 -left upper extremity venous doppler - doppler this am positive for LUE DVT - will start coumadin and heparin bridge -awaiting [facility] 11/26/18 -POD#10 -Heparin drip and coumadin for LUE DVT -Left arm swelling improved today -INR 1.1 today, INR goal 2-3 -Possibly transfer to [facility] this weekend 11/27/18: -POD#11 -Left arm swelling continues to improve -Continues on Coumadin and heparin bridge -INR: 1.4 (1.1 yesterday) goal: 2 to 3 -[facility] soon,? Tomorrow 11/28/18: -POD#12 -BP in [...] been set up. -Transferred to [facility] 11/29/18: -POD#13 -Upper endoscopy showed duodenal [...] D/C due to GI bleed. -Transfer to [facility] 11/30/18 POD # 14 EGD yesterday - duodenal ulceration with clot, no active bleeding and no intervention performed INR trending down, off coumadin and heparin Speech signed off yesterday - speech and cognition back to baseline Watch INR and [facility] upon discharge EF 55-60% per echo 11/16/18 DVT Prophylaxis: SCDs Diagnosis CAD (coronary artery disease), [place] coronary artery - Admitting, Medical. Thrombocytopenia - [...] - Discharge, Medical. Electronically signed by Interface, [facility] Conversion Jack Machine Operator Cerner at 12/08/2022 12:34 PM CDT documented in this encounter Plan of Treatment Not on file documented as of this encounter Visit Diagnoses Not on filedocumented in this encounter
--- OUTSIDE RECORDS SUMMARY | 2025-05-13 13:06 | XMS_ITS | Encounter Summary ---
Author Organization [employer] ([place], [place], [place], [place]) Address [address] [place] [address] Care Team Providers Care Scouring Train Operator Name Role Phone Unavailable Primary Care Provider Unavailabl e Encounter Details Date Type Department Care Team (Late st Contact Info) Description 11/21/2018 Transcribed Document [facility] [place] Family Medicine [address] [place] [address] ProviderErika MD [address] [place] [address] Social History Tobacco Use [...] Historical ProviderMD - 11/21/2018 2:00 AM CDT Spreader Details Entered On: 11/21/2018 1:40 EDT Performed [...]
--- OUTSIDE RECORDS SUMMARY | 2025-05-13 13:06 | XMS_ITS | Encounter Summary ---
Author Organization [email or web address] ([place], [place], [place], [place]) Address [address] [place] [address] Care Team Providers Care Medicare Biller Name Role Phone Unavailable Primary Care Provider Unavailabl e Encounter Details Date Type Department Care Team (Late st Contact Info) Description 11/22/2018 Transcribed Document [facility] [place] Family Medicine [address] [place] [address] ProviderErika MD [address] [place] [address] Social History Tobacco Use [...] D Community Services : Outpt Cardiac Rehab [facility] [phone] F [phone] They will call pt w/ appt time. SUZANNA HAINES, Store Receiving Clerk - 11/30/2018 15:30 EDT Driving After Discharge : Do not drive, Other: No driving or operating heavy machinery until released by a physician. JAY JAY CRESPO MD-NEU - 11/22/2018 11:16 EDT Electronically signed by Christina Saini Conversion Wood Boat Builder Supervisor Cerner at 12/08/2022 12:24 PM CDT documented in this encounter Plan of Treatment Not on file documented as of this encounter Visit Diagnoses Not on filedocumented in this encounter
--- OUTSIDE RECORDS SUMMARY | 2025-05-13 13:06 | XMS_ITS | Encounter Summary ---
Author Organization [employer] ([place], [place], [place], [place]) Address [address] [place] [address] Care Team Providers Care Business Operations Consultant Name Role Phone Unavailable Primary Care Provider Unavailabl e Encounter Details Date Type Department Care Team (Late st Contact Info) Description 11/22/2018 Transcribed Document [facility] [place] [address] [place] [address] ProviderErika MD [address] [place] [address] Social History Tobacco Use Types [...] at goal rate. Did have BM yesterday. CONSERVATION ASSISTANT okayed pt for po diet this am- follow up after breakfast and pt had eating 50% of meal. Pt stated he would enjoy ensure as well. Spoke with RN about observing 1-2 more meals before removing corpak and speaking with MD as well. 11/18: Check on: Pt is on Osmolite 1.5 @ 50m/hr + 1 Vflxqxump62 daily advancing toward goal of 60ml/hr + 1 Qzxqsvxol77 daily. No CONSERVATION ASSISTANT consult noted, discussed if any concern for [...] Support: Jevity 1.5 @ 60ml/hr + 1 Tzmdxqvib11 daily, HT: 185cm (6'1) ADMIT WT: 79kg/174# Current Wt: 81.6kg (11/17), 82.4kg (11/18) , 84.3 kg (11/22) BMI: 23 IBW: 79kg/100% EST NEEDS: 8026-1283 kcal (25-30kcal/kg), 95g pro (1.2g/kg) DAVION GREEN [...] 11/22/2018 12:04 EDT Electronically signed by Parveen, [facility] Conversion Director Of Strategic Partnerships Cerner at 12/08/2022 12:11 PM CDT documented in this encounter Plan of Treatment Not on file documented as of this encounter Visit Diagnoses Not on filedocumented in this encounter
--- OUTSIDE RECORDS SUMMARY | 2025-05-13 13:06 | XMS_ITS | Encounter Summary ---
Author Organization [employer] ([place], [place], [place], [place]) Address [address] [place] [address] Care Team Providers Care Laboratory Technician Name Role Phone Unavailable Primary Care Provider Unavailabl e Encounter Details Date Type Department Care Team (Late st Contact Info) Description 11/30/2018 Transcribed Document [facility] [place] Family Medicine [address] [place] [address] ProviderErika MD [address] [place] [address] Social History Tobacco Use Types [...]
--- OUTSIDE RECORDS SUMMARY | 2025-05-13 13:06 | XMS_ITS | Encounter Summary ---
Author Organization [employer] ([place], [place], [place], [place]) Address [address] [place] [address] Care Team Providers Care Perinatal Coordinator Name Role Phone Unavailable Primary Care Provider Unavailabl e Encounter Details Date Type Department Care Team (Late st Contact Info) Description 11/22/2018 Transcribed Document [facility] [place] Family Medicine [address] [place] [address] ProviderErika MD [address] [place] [address] Social History Tobacco Use Types [...] : Measured Height Entry Format : [place] Height, Feet : 6 ft Height, Inches [...]
--- OUTSIDE RECORDS SUMMARY | 2025-05-13 13:06 | XMS_ITS | Encounter Summary ---
Author Organization [employer] ([place], [place], [place], [place]) Address [address] [place] [address] Care Team Providers Care Apparel Embroidery Digitizer Name Role Phone Unavailable Primary Care Provider Unavailabl e Encounter Details Date Type Department Care Team (Late st Contact Info) Description 11/30/2018 Transcribed Document [facility] [place] Family Medicine [address] [place] [address] ProviderErika MD [address] [place] [address] Social History Tobacco Use Types [...]
--- OUTSIDE RECORDS SUMMARY | 2025-05-13 13:06 | XMS_ITS | Encounter Summary ---
Author Organization [email or web address] ([place], [place], [place], [place]) Address [address] [place] [address] Care Team Providers Care Health And Safety Representative Name Role Phone Unavailable Primary Care Provider Unavailabl e Encounter Details Date Type Department Care Team (Late st Contact Info) Description 11/17/2018 Transcribed Document [facility] [place] Family Medicine [address] [place] [address] ProviderErika MD [address] [place] [address] Social History Tobacco Use Types [...] Source : Measured Height Entry Format : [place] Height, Feet : 6 ft Height, Inches : 1 Inch Clinical Height : 185.42 cm Body Surface Area (BSA), Routine : 2.06 m2 Body Mass Index (BMI), Routine : 23.73 kg/m2 Alpesh Barraza RN - 11/17/2018 7:37 EDT Electronically signed by Christina Saini Conversion Segmental Paving Supervisor Cerner at 12/08/2022 12:13 PM CDT documented in this encounter Plan of Treatment Not on file documented as of this encounter Visit Diagnoses Not on filedocumented in this encounter
--- OUTSIDE RECORDS SUMMARY | 2025-05-13 13:06 | XMS_ITS | Encounter Summary ---
Author Organization [facility] ([place], [place], [place], [place]) Address [address] [place] [address] Care Team Providers Care Billboard Mechanic Name Role Phone Unavailable Primary Care Provider Unavailabl e Encounter Details Date Type Department Care Team (Late st Contact Info) Description 11/29/2018 Transcribed Document [facility] [place] [address] [place] [address] ProviderErika MD [address] [place], [place] [id number] Social History Tobacco Use Types Packs/Day Years [...] 1940 Associated Diagnoses: CAD (coronary artery disease), [place] coronary artery; Thrombocytopenia; Coronary artery disease; HTN [...] Non-distended, Normal bowel sounds. Integumentary: Warm, Dry, [place], incision is C/D/I. Neurologic: Alert, left sided [...] (Current Encounter/Past 24 Hours) PT 31.3 Second(s) CT 11/29/2018 06:38 PTT 27.6 Second(s) 11/28/2018 08:[address] 11/29/2018 06:38 . Impression and Plan Plan: [...] time of discharge- has sent information to [facility] -Transfer to [facility] 11/24/18 -POD#8 -Awaiting transfer to [facility] -Awaiting response from [facility] 11/25/18 -POD#9 -left upper extremity venous doppler - doppler this am positive for LUE DVT - will start coumadin and heparin bridge -awaiting [facility] 11/26/18 -POD#10 -Heparin drip and coumadin for LUE DVT -Left arm swelling improved today -INR 1.1 today, INR goal 2-3 -Possibly transfer to [facility] this weekend 11/27/18: -POD#11 -Left arm swelling continues to improve -Continues on Coumadin and heparin bridge -INR: 1.4 (1.1 yesterday) goal: 2 to 3 -[facility] soon,? Tomorrow 11/28/18: -POD#12 -BP [...] blood has been set up. -Transferred to [facility] 11/29/18: -POD#13 -Upper endoscopy showed duodenal ulceration [...] D/C due to GI bleed. -Transfer to [facility] EF 55-60% per echo 11/16/18 DVT Prophylaxis: SCDs Diagnosis CAD (coronary artery disease), [place] coronary artery - Admitting, Medical. Thrombocytopenia - [...]
--- OUTSIDE RECORDS SUMMARY | 2025-05-13 13:06 | XMS_ITS | Encounter Summary ---
Author Organization [employer] ([place], [place], [place], [place]) Address [address] [place] [address] Care Team Providers Care Gambreler Helper Name Role Phone Unavailable Primary Care Provider Unavailabl e Encounter Details Date Type Department Care Team (Late st Contact Info) Description 11/22/2018 Transcribed Document [facility] [place] Medicine [address] [place] [address] ProviderErika MD [address] [phone] Social History Tobacco Use Types Packs/Day Years [...] of Systems Respiratory - wearing 02 by [facility] GI - has NG tube. Objective Vitals [...] Tab, Oral, At Bedtime saliva substitutes, 1 [place], Buccal, Q2H, PRN Senokot, 17.2 mg= 2 [...]
--- OUTSIDE RECORDS SUMMARY | 2025-05-13 13:06 | XMS_ITS | Encounter Summary ---
Author Organization [employer] ([place], [place], [place], [place]) Address [address] [place] [address] Care Team Providers Care Ski Patroller Name Role Phone Unavailable Primary Care Provider Unavailabl e Encounter Details Date Type Department Care Team (Late st Contact Info) Description 11/21/2018 Transcribed Document [facility] [place] Family Medicine [address] [place] [address] ProviderErika MD [address] [place], [place] [id number] Social History Tobacco Use Types Packs/Day Years [...] Bedtime, Routine HEENT saliva substitutes - 1 [place], Buccal, Liquid, Q2H, PRN for Other (See [...] Radiology results Radiology Results (Last 48 hours) [id number] -- 11/16/2018 06:45 CR Chest 1 Vw Portable (11/20/2018 04:12) Result: PORTABLE CHEST 11/20/2018 4:00 AMHISTORY: Shortness of breathCOMPARISON: 1 day priorFINDINGS: A Gulliver-Jovanna catheter tip terminates in the SVC. The Gulliver-Ganzcatheter has been retracted. The cardiac silhouette is [...]
--- OUTSIDE RECORDS SUMMARY | 2025-05-13 13:06 | XMS_ITS | Encounter Summary ---
Author Organization [employer] ([place], [place], [place], [place]) Address [address] [place] [address] Care Team Providers Care Extract Wringer Name Role Phone Unavailable Primary Care Provider Unavailabl e Encounter Details Date Type Department Care Team (Late st Contact Info) Description 11/29/2018 Transcribed Document [facility] [place] [address] [place] [address] ProviderErika MD [address] [place] [...] Erika ProviderMD - 11/29/2018 2:51 PM CDT [facility] Endo PACU Summary Primary Physician: RIGOBERTO YU MD Finalized Date/Time: 11/29/18 15:36:07 Pt. Name: VILLASENOR DOTTIE Ladan /Sex: 1940 Male Med Rec #: [id number] Physician: JULIO CESAR CARVALHO MD-[facility] Financial #: [id number] Pt. Type: I Room/Bed: 330/1 Admit/Disch: 11/16/18 06:45:00 - Institution: [facility] Endo PACU Case Times Entry 1 In PACU I 11/29/18 15:10:00 Ready for PACU 11/29/18 15:35:00 Discharge Discharge from PACU 11/29/18 15:35:00 I Last Modified By: Destiney Mckenzie RN 11/29/18 15:35:51 [facility] Endo PACU Case Times Audit 11/29/18 15:35:51 Sap Crm Developer: [email or web address] Modifier: [email or web address] <+> 1 Ready for PACU Discharge <+> 1 Discharge from PACU I Finalized By: Destiney Mckenzie RN Document Signatures Signed By: Destiney Mckenzie RN 11/29/18 15:36 Electronically signed by Parveen [facility] Conversion Licensed Practical Nurse Cerner at 12/08/2022 12:16 PM CDT documented in this encounter Plan of Treatment Not on file documented as of this encounter Visit Diagnoses Not on filedocumented in this encounter
--- OUTSIDE RECORDS SUMMARY | 2025-05-13 13:06 | XMS_ITS | Encounter Summary ---
Author Organization [employer] ([place], [place], [place], [place]) Address [address] [place] [address] Care Team Providers Care Cow Tester Name Role Phone Unavailable Primary Care Provider Unavailabl e Encounter Details Date Type Department Care Team (Late st Contact Info) Description 11/29/2018 Transcribed Document [facility] [place] Family Medicine [address] [place] [address] ProviderErika MD [address] [place] [address] Social History Tobacco Use Types Packs/Day Years Used Date Smoking Tobacco: Never Assessed Sex and Gender Information Value Date Recorded Sex Assigned at Not on file Legal Sex Male 5:03 PM CDT Gender Identity Not on file Sexual Orientation Not on file documented as of this encounter Miscellaneous Notes * Cerner Conversion Note - Historical ProviderMD - 11/29/2018 11:15 AM CDT JOURNEYMAN MEAT CUTTER Attempt to Treat Entered On: 11/29/2018 11:15 [...] JOSSUE TELLEZ, ERIC - 11/29/2018 11:15 EDT Electronically signed by Christina Saini Conversion Marine Engineering Professor Cerner at 12/08/2022 12:18 PM CDT documented in this encounter Plan of Treatment Not on file documented as of this encounter Visit Diagnoses Not on filedocumented in this encounter
--- OUTSIDE RECORDS SUMMARY | 2025-05-13 13:06 | XMS_ITS | Encounter Summary ---
Author Organization [employer] ([place], [place], [place], [place]) Address [address] [place] [address] Care Team Providers Care Clinical Lab Assistant Name Role Phone Unavailable Primary Care Provider Unavailabl e Encounter Details Date Type Department Care Team (Late st Contact Info) Description 11/29/2018 Transcribed Document [facility] [place] [address] [place] [address] ProviderErika MD [address] [place] [address] Social History Tobacco Use Types [...] MD Finalized Date/Time: 11/29/18 15:07:06 Pt. Name: DTOTIE VILLASENOR /Sex: 1940 Male Med Rec #: [id number] Physician: JULIO CESAR CARVALHO MD-[facility] Financial #: [id number] Pt. Type: I Room/Bed: [facility]/ Admit/Disch: 11/16/18 06:45:00 - Institution: [facility] Endo - Case Attendance Entry 1 Entry 2 Entry 3 Case Attendee RIGOBERTO YU MD Reynolds, Ashley N, RN JONNATHAN LUBIN Role Performed Surgeon/Proceduralist, Ed Educational Aide, First Scrub, First First Time In 11/29/18 [...] Patino Crna CORNEA, MIHAELA, MD Role Performed SEA FOAM KISS MAKER/Nurse Egg Packer Anesthesiologist of Record Time In 11/29/18 14:47:00 11/29/18 14:47:00 Time Out 11/29/18 15:09:00 11/29/18 15:09:00 Procedure EGD w Control Bleeding EGD w Control Bleeding Other Attendee Superficial Wound Closed By: Last Modified By: Gem Parekh RN Reynolds, Ashley N, RN 11/29/18 15:06:55 11/29/18 15:06:55 [facility] Endo - Case Attendance Audit 11/29/18 15:06:55 Physician/Internist: [email or web address] Modifier: [email or web address] 1 <+> Time Out 1 <*> Procedure EGD w Control Bleeding 2 <+> Time Out 2 <*> Procedure EGD w Control Bleeding 3 <+> Time Out 3 <*> Procedure EGD w Control Bleeding 4 <+> Time Out 4 <*> Procedure EGD w Control Bleeding 5 <+> Time Out 5 <*> Procedure EGD w Control Bleeding 11/29/18 14:59:16 Physician/Internist: [email or web address] Modifier: [email or web address] <+> 1 Procedure <+> 2 Procedure <+> 3 Procedure <+> 4 Procedure <+> 5 Procedure 11/29/18 14:59:14 Physician/Internist: [email or web address] Modifier: [email or web address] 1 <-> Procedure Esophagogastroduodenoscopy 2 <-> Procedure Esophagogastroduodenoscopy 3 <-> Procedure Esophagogastroduodenoscopy 4 <-> Procedure Esophagogastroduodenoscopy 5 <-> Procedure Esophagogastroduodenoscopy 11/29/18 14:49:19 Physician/Internist: [email or web address] Modifier: [email or web address] 1 <*> Procedure Esophagogastroduodenoscopy 2 <+> Time In 2 <*> Procedure Esophagogastroduodenoscopy 3 <+> Time In 3 <*> Procedure Esophagogastroduodenoscopy 4 <+> Time In 4 <*> Procedure Esophagogastroduodenoscopy 5 <+> Time In 5 <*> Procedure Esophagogastroduodenoscopy 11/29/18 14:48:29 Physician/Internist: [email or web address] Modifier: [email or web address] 1 <+> Time In [...] Endo - Case times Audit 11/29/18 15:06:53 Physician/Internist: [email or web address] Modifier: [email or web address] <+> 1 Out Room Time <+> 1 Stop Time <+> 1 Stop Time 11/29/18 14:51:51 Physician/Internist: [email or web address] Modifier: [email or web address] <+> 1 Start Time [...] [facility] Endo - General Case Realty Specialist 1 Case Information [facility] 01 [facility] [...] CLIP II RESOLUTION CLIP II RESOLUTION Identification [id number] Description Implant Quantity 1 1 Implant Site Implant Identification Model Number Implant Identification Serial Number Implant [id number] Identification Lot Number Implant [place] [employer]:Interv [place] Sci:Interv Identification Cardiology Cardiology Spring Salvage Worker Name: Implant 3 [id number] Identification Catalog Number Implant Size Implant Has an Yes Yes Expiration Date Implant Expiration 09/05/21 07/10/21 Date Wasted Radioactive Material Time Implanted Tissue Implant Continue for Tissue Implant Documentation Tissue Identification Number Graft Prep Per Spring Salvage Worker Instructions: Tissue Preparation Method: Reconstitution Solution: Reconstitution Solution Lot Number Reconstitution Solution Expiration Date: Thawing Solution Thawing Solution Lot Number Thawing Solution Expiration Date Preparation Materials, Other Preparation Materials, Other Lot Number Preparation Materials, Other Expiration Date Tissue Prepared/Processed By Spring Salvage Worker Paperwork Completed Implant Type Comment clip failed Last Modified By: Gem Parekh RN Reynolds, Ashley N, RN 11/29/18 15:00:27 11/29/18 15:06:45 [facility] Endo - Implant Log Audit 11/29/18 15:06:45 Physician/Internist: GARY Modifier: [email or web address] 2 <*> Implant Identification Description CLIP II RESOLUTION [id number] <+> Implant Type Comment 11/29/18 15:04:27 Physician/Internist: [email or web address] Modifier: [email or web address] <+> 2 Implant Identification Description <+> 2 Implant Identification Lot Number <+> 2 Implant Identification Spring Salvage Worker Name: <+> 2 Implant Expiration Date <+> [...] Endo - Intraoperative Equipment Audit 11/29/18 14:56:48 Physician/Internist: [email or web address] Modifier: [email or web address] <+> 2 Photo <+> [...] Endo - Patient Positioning Audit 11/29/18 14:59:16 Physician/Internist: [email or web address] Modifier: [email or web address] <+> 1 Procedure 11/29/18 14:59:14 Physician/Internist: [email or web address] Modifier: [email or web address] 1 <-> Procedure Esophagogastroduodenoscopy [...] Endo - Surgical Procedures Audit 11/29/18 15:07:04 Physician/Internist: [email or web address] Modifier: [email or web address] <+> 1 Stop 11/29/18 14:59:15 Physician/Internist: [email or web address] Modifier: [email or web address] 1 <*> Procedure Esophagogastroduodenoscopy 1 <+> Start 11/29/18 14:49:23 Physician/Internist: [email or web address] Modifier: [email or web address] 1 <*> Procedure Esophagogastroduodenoscopy [...] Endo - Time Out Audit 11/29/18 14:59:17 Physician/Internist: [email or web address] Modifier: [email or web address] <+> 1 Procedure to be Performed 11/29/18 14:59:15 Physician/Internist: [email or web address] Modifier: [email or web address] 1 <-> Procedure to be Performed Esophagogastroduodenoscopy Case Comments <None> Finalized By: Gem Parekh RN Document Signatures Signed By: Gem Parekh RN 11/29/18 15:07 Electronically signed by Parveen [facility] Conversion Ware Finisher Cerner at 12/08/2022 12:33 PM CDT documented in this encounter Plan of Treatment Not on file documented as of this encounter Visit Diagnoses Not on filedocumented in this encounter
--- OUTSIDE RECORDS SUMMARY | 2025-05-13 13:06 | XMS_ITS | Encounter Summary ---
Author Organization [employer] ([place], [place], [place], [place]) Address [address] [place] [address] Care Team Providers Care Cisco Certified Network Associate Name Role Phone Unavailable Primary Care Provider Unavailabl e Encounter Details Date Type Department Care Team (Late st Contact Info) Description 11/17/[address] [facility] [place] Family Medicine [address] [place] [address] ProviderErika MD [address] [place] [...] Historical ProviderMD - 11/17/2018 2:00 AM CDT Special Education Resource Teacher Details Entered On: 11/17/2018 7:39 EDT [...]
--- OUTSIDE RECORDS SUMMARY | 2025-05-13 13:06 | XMS_ITS | Encounter Summary ---
Author Organization [employer] ([place], [place], [place], [place]) Address [address] [place] [address] Care Team Providers Care Clinical Trial Coordinator Name Role Phone Unavailable Primary Care Provider Unavailabl e Encounter Details Date Type Department Care Team (Late st Contact Info) Description 11/22/2018 Transcribed Document [facility] [place] Family Medicine [address] [place] [address] ProviderErika MD [address] [place] [address] Social History Tobacco Use Types [...] On: 11/22/2018 9:23 EDT by JOSSUE RODRÍGUEZ INSTRUMENT REPAIRER General Information Visit Type, INSTRUMENT REPAIRER : Re-Evaluation Patient Orders : INSTRUMENT REPAIRER Fxnl Limitation Documentation x 1 -111 Start: 11/22/18 8:22:14 EDT - SYSTEM, SYSTEM FEES - Start: 11/22/18 8:21:00 EDT, Routine, For Swallow Eval and Treat -111 MARIEL ROBLES PA INSTRUMENT REPAIRER Fxnl Limitation Documentation - Start: 11/20/18 9:37:47 EDT, Continuous Order -111 SYSTEM, SYSTEM Speech Language Pathology Additional Tx - Start: 11/20/18 9:36:00 EDT, For Dysphagia, Continuous Order -111 Admission Date : Admission Date/Time: 11/16/18 06:45:00 Medical Chart Reviewed, INSTRUMENT REPAIRER : Yes Personal Devices : Personal Devices No Devices Recorded Assistive Devices : Assistive Devices No Devices Recorded Active Diagnoses : 11/17/2018 00:00 Atherosclerotic heart disease of [place] coronary artery without angina pectoris 11/17/2018 00:00 Essential (primary) hypertension 11/17/2018 00:00 Hypothyroidism, unspecified 11/17/2018 00:00 Nonrheumatic aortic (valve) insufficiency 11/17/2018 00:00 Restless legs syndrome 11/17/2018 00:00 Thoracic aortic aneurysm, without rupture 11/17/2018 00:00 Thrombocytopenia, unspecified 11/16/2018 00:00 Atherosclerotic heart disease of [place] coronary artery without angina pectoris 11/16/2018 00:00 Nonrheumatic aortic (valve) insufficiency 11/16/2018 00:00 Thoracic aortic aneurysm, without rupture Therapy Diagnosis, INSTRUMENT REPAIRER : normal oral skills, moderate pharyngeal dysphagia Previous Speech/Language Evaluations : N/A Previous Swallow Precautions : Bedside 11/20 recommended instrumental prior to initiating PO diet Previous Cognitive Evaluations : N/A Diet/Intake Prior to Current Admission : Regular/thin Diet/Intake During Current Admission : NPO with TF via [place]ak Gag Reflex Intact : Yes Intubation Comment, INSTRUMENT REPAIRER : 11/16-11/17 Vital Signs RTF : [...] 9:23 EDT General Status Patient Received Status, INSTRUMENT REPAIRER : Long sitting in bed Patient Left Status, INSTRUMENT REPAIRER : Long sitting in bed JOSSUE RODRÍGUEZ [...] Consistencies Trialed FEES : Thin by straw, [place] by straw, Pureed, Regular solids JOSSUE RODRÍGUEZ SLP - 11/22/2018 9:23 EDT Swallow Impressions Impressions, FEES : Pharyngeal dysphagia JOSSUE RODRÍGUEZ SLP - 11/22/2018 9:23 EDT 8 Point Penetration/Aspiration Grid Thin by Straw : 8 [place] by Straw : 1 Pureed : 1 [...] : Regular Recommended Liquid Diet, SwRec : [place] Feeding Presentation Style, SwRec : No restrictions Swallow Position, SwRec : Upright 90 degrees Supervision Level w/Meals, SwRec : Assist, standby Recommended Med Present, SwRec : Crushed, Whole, With nectar, With puree/pudding, No medications with water Recommended Exam, Sw Rec : FEES Repeat Swallow Exam Timeframe : 3-6 days JOSSUE RODRÍGUEZ SLP - 11/22/2018 9:34 EDT Therapy Indication Assessment INSTRUMENT REPAIRER Indicated : Yes INSTRUMENT REPAIRER Problem List : Impaired, Swallowing JOSSUE RODRÍGUEZ SLP - 11/22/2018 9:34 EDT Swallow Plan/Goals Treatment Frequency, INSTRUMENT REPAIRER : 5 times per wk Treatment Plan Est w/Pt/Caregvr, Swallow : Yes JOSSUE RODRÍGUEZ SLP - 11/22/2018 9:34 EDT Swallow LTG Grid INSTRUMENT REPAIRER Diver Pumper Goal #1 INSTRUMENT REPAIRER Fci Goal #2 Swallow LTG : Establish safe [...] JOSSUE RODRÍGUEZ SLP - 11/22/2018 9:34 EDT INSTRUMENT REPAIRER Education Assessment Grid 1 Aspiration : Needs further teaching Diet Recommendation : Needs further teaching Dysphagia : Needs further teaching Free Water Protocol : Needs further teaching Ice Chips : Needs further teaching Oral Care : Needs further teaching JOSSUE RODRÍGUEZ SLP - 11/22/2018 9:34 EDT INSTRUMENT REPAIRER Education Assessment Grid 2 Speech Language Pathology Treatment Plan : Needs further teaching JOSSUE RODRÍGUEZ SLP - 11/22/2018 9:[address] [facility] INSTRUMENT REPAIRER Charges FEES : 1 JOSSUE RODRÍGUEZ SLP - 11/22/2018 9:34 EDT Electronically signed by Christina Saini Conversion Client Technical Support Associate Cerner at 12/08/2022 12:37 PM CDT documented in this encounter Plan of Treatment Not on file documented as of this encounter Visit Diagnoses Not on filedocumented in this encounter
--- OUTSIDE RECORDS SUMMARY | 2025-05-13 13:06 | XMS_ITS | Encounter Summary ---
Author Organization [employer] ([place], [place], [place], [place]) Address [address] [place] [address] Care Team Providers Care Cardiopulmonary Technician And Eeg Tech Name Role Phone Unavailable Primary Care Provider Unavailabl e Encounter Details Date Type Department Care Team (Late st Contact Info) Description 11/17/2018 Transcribed Document [facility] Cardiology [address] [place] [address] Lc Armendariz MD [address] [facility] [address] [place] [address] Social History Tobacco Use Types [...] Male : 1940 Associated Diagnoses: None Author: CL ARMENDARIZ MD-CAR Basic Information PCP: Sanjuana Espino MD Jewelry Bench Molder: Porfirio Combs MD Chief Complaint s/p bioprosthetic [...] list: All Problems Aneurysm, thoracic aortic / 6457908713 / Confirmed Aortic valve insufficiency / 776870194 / Confirmed Arthritis / 9404007 / Confirmed At risk for sleep apnea / 68478272 / Confirmed CAD (coronary artery disease) / 54140594 / Confirmed Disorder of prostate ( enlarged) / 66238559 / Confirmed HTN - Hypertension / 3375444593 / Confirmed Hypothyroidism / 87371393 / Confirmed Frequent urination / 775361567 / Confirmed Cancer of skin of face / 1150043651 / Confirmed Nocturia / 019027340 / Confirmed Restless legs syndrome / 65994278 / Confirmed Prostate stricture / 09957319 / Confirmed Resolved: Bladder stone / 264638090 Canceled: Aneurysm / 4346701374 Canceled: Thyroid disease / 613309804 Histories No education data available. Social & Psychosocial Habits Alcohol 04/16/2017 Alcohol Use History, Social Habits No Alcohol Use in Last Twelve Months No Home/Environment 11/15/2018 Lives with: Spouse Living situation: Home/Independent Substance Abuse 04/16/2017 Recreational Drug Use History No Recreational Drug Use Last 12 Months No Tobacco 04/16/2017 Smoking Status Never smoker Past Medical History: Active HTN - Hypertension (3815511828) Hypothyroidism (39457725) Family History: Entire family history is negative. [...] No tenderness, No swelling. Integumentary: Warm, Dry, [place]. Neurologic: Not alert, Not oriented. Psychiatric: not [...] 11/17/2018 05:17 Radiology Results (Last 48 hours) [id number] -- 11/16/2018 06:45 CR Chest 2 Vws [...] Anasogastric tube extends below the diaphragm. Left-sided [place]-Ganzcatheter tip is in the left main pulmonary [...] day.FINDINGS: The heart is normal in size. [place]-Jovanna catheter tips in theleft pulmonary artery. There [...]
--- OUTSIDE RECORDS SUMMARY | 2025-05-13 13:06 | XMS_ITS | Encounter Summary ---
Author Organization [employer] ([place], [place], [place], [place]) Address [address] [place] [address] Care Team Providers Care Ground Operations Superintendent Name Role Phone Unavailable Primary Care Provider Unavailabl e Encounter Details Date Type Department Care Team (Late st Contact Info) Description 11/22/2018 Transcribed Document [facility] [place] Family Medicine [address] [place] [address] ProviderErika MD [address] [place] [address] Social History Tobacco Use Types [...]
--- OUTSIDE RECORDS SUMMARY | 2025-05-13 13:06 | XMS_ITS | Encounter Summary ---
Author Organization [employer] ([place], [place], [place], [place]) Address [address] [place] [address] Care Team Providers Care Plumbing Manager Name Role Phone Unavailable Primary Care Provider Unavailabl e Encounter Details Date Type Department Care Team (Late st Contact Info) Description 11/17/2018 Transcribed Document [facility] [place] [address] [place] [address] ProviderErika MD [address] [place] [address] Social History Tobacco Use Types [...] On: 11/17/2018 11:22 EDT by ODALYS FAULKNER Rn-Spray ApplicatorManager Reimbursement Note Documentation Status Complete : Yes ODALYS FAULKNER Rn-Spray Applicator - 11/17/2018 11:22 EDT Patient History Information [...] when pt is awake. CF ODALYS FAULKNER, Rn-Spray Applicator - 11/17/2018 11:22 EDT documented in this encounter Plan of Treatment Not on file documented as of this encounter Visit Diagnoses Not on filedocumented in this encounter
--- OUTSIDE RECORDS SUMMARY | 2025-05-13 13:06 | XMS_ITS | Encounter Summary ---
Author Organization [employer] ([place], [place], [place], [place]) Address [address] [place] [address] Care Team Providers Care Repairer Welding Systems And Equipment Name Role Phone Unavailable Primary Care Provider Unavailabl e Encounter Details Date Type Department Care Team (Late st Contact Info) Description 11/21/2018 Transcribed Document [facility] [place] [address] [place] [address] ProviderErika MD [address] [place] [address] Social History Tobacco Use Types [...] MRI to confirm. -continue asa, statin -Continue PT/OT/PETROLEUM PRODUCTION ENGINEER -control blood pressure, aim for whatever is [...] Tab, Oral, At Bedtime saliva substitutes, 1 [place], Buccal, Q2H, PRN Senokot, 17.2 mg= 2 [...] valve. Electronically signed by Christina Saini Conversion Catering Convention Services Manager Cerner at 12/08/2022 12:30 PM CDT documented in this encounter Plan of Treatment Not on file documented as of this encounter Visit Diagnoses Not on filedocumented in this encounter
--- OUTSIDE RECORDS SUMMARY | 2025-05-13 13:06 | XMS_ITS | Encounter Summary ---
Author Organization [employer] ([place], [place], [place], [place]) Address [address] [place] [address] Care Team Providers Care Beater Boss Name Role Phone Unavailable Primary Care Provider Unavailabl e Encounter Details Date Type Department Care Team (Late st Contact Info) Description 11/29/2018 Transcribed Document [facility] [place] [address] [place] [address] ProviderErika MD [address] [place], [place] [id number] Social History Tobacco Use Types Packs/Day Years Used Date Smoking Tobacco: Never Assessed Sex and Gender Information Value Date Recorded Sex Assigned at Not on file Legal Sex Male 5:03 PM CDT Gender Identity Not on file Sexual Orientation Not on file documented as of this encounter Miscellaneous Notes * Cerner Conversion Note - Historical ProviderMD - 11/29/2018 2:00 AM CDT Restaurant Supervisor Details Entered On: 11/29/2018 1:39 EDT [...] EDT Electronically signed by Christina Saini Conversion [employer] Chemistry Teacher Cerner at 12/08/2022 12:30 PM CDT documented in this encounter Plan of Treatment Not on file documented as of this encounter Visit Diagnoses Not on filedocumented in this encounter
--- OUTSIDE RECORDS SUMMARY | 2025-05-13 13:06 | XMS_ITS | Encounter Summary ---
Author Organization [employer] ([place], [place], [place], [place]) Address [address] [place] [address] Care Team Providers Care Leaf Sorter Name Role Phone Unavailable Primary Care Provider Unavailabl e Encounter Details Date Type Department Care Team (Late st Contact Info) Description 11/22/2018 Transcribed Document [facility] [place] [address] [place] [address] ProviderErika MD [address] [place] [...] On: 11/22/2018 13:55 EDT by ODALYS FAULKNER Rn-Refueling Ramp SupervisorSoftware Test Automation Engineer Note Care Management Note : 11/22/18 Pt has had a cva. Spoke to his Connie and son Sumeet at the bedside. Pt is lfacid on the left side. Discussed the need for STR and they decided on [facility]. Sent pt info via [employer] to [facility]. CF Documentation Status Complete : Yes ODALYS FAULKNER Rn-Refueling Ramp Supervisor - 11/22/2018 13:55 EDT Patient History Emergency Contact #1 : Connie Emergency Contact #1 (H) Emergency Contact #1 Relationship : Emergency Contact #2 : Sheridan Fernando Emergency Contact #2 (C) Emergency Contact #2 Relationship : daughter Living Situation : Home Patient Lives With : Spouse Current Home Treatments : None Patient History Note Report : ODALYS FAULKNER Rn-Refueling Ramp Supervisor - 11/17/18 11:25:13 11/17/18 Pt sleeping and [...] when pt is awake. CF ODALYS FAULKNER Rn-Refueling Ramp Supervisor - 11/22/2018 13:55 EDT Electronically signed by [facility] Conversion Interventional Physiatrist Cerner at 12/08/2022 12:32 PM CDT documented in this encounter Plan of Treatment Not on file documented as of this encounter Visit Diagnoses Not on filedocumented in this encounter
--- OUTSIDE RECORDS SUMMARY | 2025-05-13 13:06 | XMS_ITS | Encounter Summary ---
Author Organization [employer] ([place], [place], [place], [place]) Address [address] [place] [address] Care Team Providers Care Home Performance Consultant Name Role Phone Unavailable Primary Care Provider Unavailabl e Encounter Details Date Type Department Care Team (Late st Contact Info) Description 11/30/2018 Transcribed Document [facility] [place] Family [place] [address] [place] [address] ProviderErika MD [address] [place] [address] Social History Tobacco Use Types [...]
--- OUTSIDE RECORDS SUMMARY | 2025-05-13 13:06 | XMS_ITS | Encounter Summary ---
Author Organization [employer] ([place], [place], [place], [place]) Address [address] [place] [address] Care Team Providers Care Brood Station Manager Name Role Phone Unavailable Primary Care Provider Unavailabl e Encounter Details Date Type Department Care Team (Late st Contact Info) Description 11/17/2018 Transcribed Document [facility] [place] [address] [place] [address] ProviderErika MD [address] [place] [address] Social History Tobacco Use [...]
--- OUTSIDE RECORDS SUMMARY | 2025-05-13 13:06 | XMS_ITS | Encounter Summary ---
Author Organization [employer] ([place], [place], [place], [place]) Address [address] [place] [address] Care Team Providers Care Tactical Debriefer Officer Name Role Phone Unavailable Primary Care Provider Unavailabl e Encounter Details Date Type Department Care Team (Late st Contact Info) Description 11/22/2018 Transcribed Document [facility] [place] Family Medicine [address] [place] [address] ProviderErika MD [address] [place] [address] Social History Tobacco Use [...] EDT by LEONEL GUZMAN Chaplain General Information Anabaptist Preference : Anabaptism LEONEL GUZMAN Chaplain - 11/24/2018 2:35 EDT Spiritual Assessment Spiritual Assessment Comment/Summary Points : Prov. empathetic engaged listening: Pt. is Anabaptism, spouse & son visit pt. regularly, Spouse & Pt. in their late teens. Pt. enjoys reminiscing and story telling, Pt. looking forward to [facility] rehab noting he wants/needs to work [...]
--- OUTSIDE RECORDS SUMMARY | 2025-05-13 13:06 | XMS_ITS | Encounter Summary ---
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 Respiratory Assessment Comment : Nasal cannula MAMTA SOLO, ERIC - 11/23/2018 14:12 EDT Visit Type, CLERK SPECIALIST : Initial evaluation Patient Orders : Speech Language Pathology Evaluation and Treatment -111 Start: 11/22/18 11:18:00 EDT, Routine, For Speech Language Cognitive Eval and Treat - JAY JAY CRESPO MD-DIANE CLERK SPECIALIST Fxnl Limitation Documentation - Start: 11/20/18 9:37:47 EDT, Continuous Order -111 SYSTEM, SYSTEM Speech Language Pathology Additional Tx - Start: 11/20/18 9:36:00 EDT, For Dysphagia, Continuous Order -111 Admission Date : Admission Date/Time: 11/16/18 06:45:00 Medical Chart Reviewed, CLERK SPECIALIST : Yes Personal Devices : Personal Devices No Devices Recorded Assistive Devices : Assistive Devices No Devices Recorded Active Diagnoses : 11/23/2018 00:00 Cerebral infarction, unspecified 11/17/2018 00:00 Atherosclerotic heart disease of [place] coronary artery without angina pectoris 11/17/2018 00:00 Essential (primary) hypertension 11/17/2018 00:00 Hypothyroidism, unspecified 11/17/2018 00:00 Nonrheumatic aortic (valve) insufficiency 11/17/2018 00:00 Restless legs syndrome 11/17/2018 00:00 Thoracic aortic aneurysm, without rupture 11/17/2018 00:00 Thrombocytopenia, unspecified 11/16/2018 00:00 Atherosclerotic heart disease of [place] coronary artery without angina pectoris 11/16/2018 00:00 [...] Gag Reflex Intact : Yes Intubation Comment, CLERK SPECIALIST : 11/16-11/17 Vital Signs RTF : [...] 13:41 EDT General Status Patient Received Status, CLERK SPECIALIST : Supine in bed Patient Left Status, CLERK SPECIALIST : Supine in bed MAMTA SOLO SLP [...] Oral Mechanism for Daily Living : Intact CLERK SPECIALIST Cough : Weak MAMTA SOLO SLP - [...] 14:12 EDT Evaluation Methods Types of Evaluation, CLERK SPECIALIST : Informal MAMTA SOLO SLP - 11/23/2018 [...] - 11/23/2018 14:12 EDT Therapy Indication Assessment CLERK SPECIALIST Indicated : Yes CLERK SPECIALIST Interdisciplinary Consultation Needs : No CLERK SPECIALIST Problem List : Impaired, Spoken Language Comprehension, Impaired, Spoken Language Expression MAMTA SOLO SLP - 11/23/2018 14:12 EDT LTG Lang/Comm/Cog LTG CLERK SPECIALIST Intermediate Goal 1 Intermediate Goal 2 Goals : Improved spoken language [...] MAMTA SOLO SLP - 11/23/2018 14:12 EDT AMMTA SOLO SLP - 11/23/2018 14:12 EDT Education Barriers To Learning : Acuity of Illness, Cognitive deficit Individuals Taught : Patient Readiness to Learn : Cooperative Readiness to Learn : Explanation MAMTA SOLO SLP - 11/23/2018 14:12 EDT CLERK SPECIALIST Education Assessment Grid 1 Evaluation Results : Verbalizes understanding MAMTA SOLO SLP - 11/23/2018 14:12 EDT CLERK SPECIALIST Education Assessment Grid 2 Treatment Plan : Verbalizes understanding MAMTA SOLO SLP - 11/23/2018 14:[address] [facility] Evaluation of Speech Production & Language : 1 MAMTA SOLO SLP - 11/23/2018 14:12 EDT Anticipated Discharge Needs, CLERK SPECIALIST Anticipated Discharge to OT : Rehab, high intensity Recommend Continued Therapy at Discharge : Yes MAMTA SOLO SLP - 11/23/2018 14:12 EDT documented in this encounter Plan of Treatment Not on file documented as of this encounter Visit Diagnoses Not on filedocumented in this encounter
--- OUTSIDE RECORDS SUMMARY | 2025-05-13 13:06 | XMS_ITS | Encounter Summary ---
Author Organization [employer] ([place], [place], [place], [place]) Address [address] [place] [address] Care Team Providers Care Otologist Name Role Phone Unavailable Primary Care Provider Unavailabl e Encounter Details Date Type Department Care Team (Late st Contact Info) Description 11/17/2018 Transcribed Document [facility] [place] [address] [place] [address] ProviderErika MD [address] [place], [place] [id number] Social History Tobacco Use Types Packs/Day Years [...] 1940 Associated Diagnoses: CAD (coronary artery disease), [place] coronary artery; Thrombocytopenia; Coronary artery disease; HTN [...] Palpable bilateral DP pulses. Integumentary: Warm, Dry, [place]. Neurologic: Not alert. Review / Management Results review: NOV 17 03:12 142 110 20 / H 115 4.1 25 1.10 \ NOV 17 03:12 \ L 10.7 / H 15.3 L 112 / L 32.1 \ Blood Gases (Current Encounter/Past 24 Hours) pH Art 7.48 [place] 11/17/2018 05:17 pCO2 Art 31.2 LOW 11/17/2018 [...] 43.0 11/16/2018 12:06 pO2 Art POC 433.0 [place] 11/16/2018 12:06 HCO3 Art POC 28.5 [place] 11/16/2018 12:06 tCO2 Art POC 30.0 [place] 11/16/2018 12:06 BE Art POC 4.0 [place] 11/16/2018 12:06 sO2 Art POC >99.9 [place] 11/16/2018 12:06 ABG Num of Draw Attempts 1 11/17/2018 05:17 Coagulation Results (Current Encounter/Past 24 Hours) No Coagulation Results Found (Past 24 Hours) . Impression and Plan Plan: 11/17/18 -POD#1 -MTs left in place secondary to drainage EF 55-60% per echo 11/16/18 DVT Prophylaxis: SCDs Diagnosis CAD (coronary artery disease), [place] coronary artery - Admitting, Medical. Thrombocytopenia - [...]
--- OUTSIDE RECORDS SUMMARY | 2025-05-13 13:06 | XMS_ITS | Encounter Summary ---
Author Organization [employer] ([place], [place], [place], [place]) Address [address] [place] [address] Care Team Providers Care Instrument Maker Apprentice Name Role Phone Unavailable Primary Care Provider Unavailabl e Encounter Details Date Type Department Care Team (Late st Contact Info) Description 11/30/2018 Transcribed Document [facility] [place] [address] [place] [address] ProviderErika MD [address] [place] [address] Social History Tobacco Use Types [...] 2 Tab, Oral, BID saliva substitutes, 1 [place], Buccal, Q2H, PRN Senokot, 17.2 mg= 2 Tab, Oral, BID Synthroid, 50 mcg= 2.5 mL, IV Push, Q48H Zofran, 4 mg= 2 mL, IV Push, Q4H, PRN documented in this encounter Plan of Treatment Not on file documented as of this encounter Visit Diagnoses Not on filedocumented in this encounter
--- OUTSIDE RECORDS SUMMARY | 2025-05-13 13:06 | XMS_ITS | Encounter Summary ---
Author Organization [employer] ([place], [place], [place], [place]) Address [address] [place] [address] Care Team Providers Care Rn Paralegal Name Role Phone Unavailable Primary Care Provider Unavailabl e Encounter Details Date Type Department Care Team (Late st Contact Info) Description 11/22/2018 Transcribed Document [facility] [place] [address] [place] [address] ProviderErika MD [address] [place] [address] Social History Tobacco Use Types [...] Source : Measured Height Entry Format : [place] Height, Feet : 6 ft Height, Inches : 1 Inch Clinical Height : 185.42 cm Amanda Sigala RN - 11/22/2018 6:08 EDT Amanda Sigala RN - 11/22/2018 6:15 EDT documented in this encounter Plan of Treatment Not on file documented as of this encounter Visit Diagnoses Not on filedocumented in this encounter
--- OUTSIDE RECORDS SUMMARY | 2025-05-13 13:06 | XMS_ITS | Encounter Summary ---
Author Organization [employer] ([place], [place], [place], [place]) Address [address] [place] [address] Care Team Providers Care Bodily Injury Adjuster Name Role Phone Unavailable Primary Care Provider Unavailabl e Encounter Details Date Type Department Care Team (Late st Contact Info) Description 11/29/2018 Transcribed Document [facility] [place] Medicine [address] [place] [address] ProviderErika MD [address] [place], [place] [id number] Social History Tobacco Use Types Packs/Day Years Used Date Smoking Tobacco: Never Assessed Sex and Gender Information Value Date Recorded Sex Assigned at Not on file Legal Sex Male 5:03 PM CDT Gender Identity Not on file Sexual Orientation Not on file documented as of this encounter Miscellaneous Notes * Cerner Conversion Note - Erika ProviderMD - 11/29/2018 1:37 PM CDT Discharge Summary, GRAIN SPOUTER Entered On: 11/29/2018 13:40 EDT Performed On: 11/29/2018 13:37 EDT by JOSSUE RODRÍGUEZ GRAIN SPOUTER Discharge Notation. GRAIN SPOUTER Dysphagia Treatment After Discharge : No Discharge Diet : Regular Discharge Liquids : Thin Discharge Summary Comment, GRAIN SPOUTER : Attempted to see pt for language [...] - 11/29/2018 13:37 EDT LTG Lang/Comm/Cog LTG GRAIN SPOUTER Mcc Goal 1 Mcc Goal 2 Goals : Improved spoken language expression at the time of discharge Improved auditory/spoken language comprehension at the time of discharge Status : Discontinue Discontinue JOSSUE RODRÍGUEZ SLP - 11/29/2018 13:37 EDT JOSSUE RODRÍGUEZ, [facility] - 11/29/2018 13:37 EDT STG Lang_Comm_Cog Motor Speech STG Grid Goal #1 Activity : Improve intelligibility of speech Status : Discontinue JSOSUE RODRÍGUEZ [facility] - 11/29/2018 13:37 [...] a category Status : Discontinue JOSSUE RODRÍGUEZ GRAIN SPOUTER - 11/29/2018 13:37 EDT Reading Comprehension STG [...] Date Met : 11/24/2018 EDT JOSSUE RODRÍGUEZ, GRAIN SPOUTER - 11/29/2018 13:37 EDT JOSSUE ORDRÍGUEZ, [facility] - 11/29/2018 13:37 EDT JOSSUE RODRÍGUEZ, [facility] - 11/29/2018 13:37 EDT JOSSUE RODRÍGUEZ, GRAIN SPOUTER - 11/29/2018 13:37 EDT Swallow Plan/Goals Swallow LTG Grid GRAIN SPOUTER Mcc Goal #[address] Interpreter Goal #2 Swallow LTG : Establish safe [...]
--- OUTSIDE RECORDS SUMMARY | 2025-05-13 13:06 | XMS_ITS | Encounter Summary ---
Author Organization [employer] ([place], [place], [place], [place]) Address [address] [place] [address] Care Team Providers Care Storm Window Installer Name Role Phone Unavailable Primary Care Provider Unavailjuliana e Encounter Details Date Type Department Care Team (Late st Contact Info) Description 11/17/2018 Transcribed Document [facility] [place] Family Medicine [address] [place] [address] ProviderErika MD [address] [place] [address] Social History Tobacco Use Types [...] On: 11/17/2018 11:49 EDT by Lizabeth Marti, Roof Bolter Nutrition Assessment Nutrition Assessment Reason : Consult [...] wnls + sternum midline incision GI: LBM PRODUCT DEVELOPMENT ECOLOGIST, hypoactive BS, +NGT, +chest tube (1030 ml) HT: 185cm (6'1) ADMIT WT: 79kg/174# BMI: 23 IBW: 79kg/100% NFPE: insignificant EST NEEDS: 5031-2828 kcal (25-30kcal/kg), 95g pro (1.2g/kg) Lizabeth Marti [...] recommend initate po diet (cardiac) w/consitencies per DRAPERY HANGER. RD will monitor need for supplement. goal: [...]
--- OUTSIDE RECORDS SUMMARY | 2025-05-13 13:06 | XMS_ITS | Encounter Summary ---
Author Organization [employer] ([place], [place], [place], [place]) Address [address] [place] [address] Care Team Providers Care Artificial Cherry Maker Name Role Phone Unavailable Primary Care Provider Unavailabl e Encounter Details Date Type Department Care Team (Late st Contact Info) Description 11/30/2018 Transcribed Document [facility] [place] [address] [place] [address] ProviderErika MD [address] [place] [address] Social History Tobacco Use Types [...]
--- OUTSIDE RECORDS SUMMARY | 2025-05-13 13:06 | XMS_ITS | Encounter Summary ---
Author Organization [employer] ([place], [place], [place], [place]) Address [address] [place] [address] Care Team Providers Care Event Coordinator Marketing And Sales Name Role Phone Unavailable Primary Care Provider Unavailjuliana e Encounter Details Date Type Department Care Team (Late st Contact Info) Description 11/29/2018 Transcribed Document [facility] [place] Family Medicine [address] [place] [address] ProviderErika MD [address] [place] [address] Social History Tobacco Use Types [...] unspecified 11/17/2018 00:00 Atherosclerotic heart disease of [place] coronary artery without angina pectoris 11/17/2018 00:00 Essential (primary) hypertension 11/17/2018 00:00 Hypothyroidism, unspecified 11/17/2018 00:00 Nonrheumatic aortic (valve) insufficiency 11/17/2018 00:00 Restless legs syndrome 11/17/2018 00:00 Thoracic aortic aneurysm, without rupture 11/17/2018 00:00 Thrombocytopenia, unspecified 11/16/2018 00:00 Atherosclerotic heart disease of [place] coronary artery without angina pectoris 11/16/2018 00:00 Nonrheumatic aortic (valve) insufficiency 11/16/2018 00:00 Thoracic aortic aneurysm, without rupture Admission Date : 11/16/2018 06:45 Co-treated by, OT : conservation assistant (OVER THE HORIZON TARGETING SUPERVISOR) Personal Devices : Personal Devices No [...] DAKOTA VELAZQUEZ OTR/L - 11/29/2018 13:08 EDT Retirement Goals, OT Self Feeding LTG Grid Goal [...] Electronically signed by Christina Saini Conversion Industrial Electrician Journeyman Cerner at 12/08/2022 12:19 PM CDT documented in this encounter Plan of Treatment Not on file documented as of this encounter Visit Diagnoses Not on filedocumented in this encounter
--- OUTSIDE RECORDS SUMMARY | 2025-05-13 13:06 | XMS_ITS | Encounter Summary ---
Author Organization [employer] ([place], [place], [place], [place]) Address [address] [place] [address] Care Team Providers Care Service Correspondent Name Role Phone Unavailable Primary Care Provider Unavailabl e Encounter Details Date Type Department Care Team (Late st Contact Info) Description 11/22/2018 Transcribed Document [facility] [place] Family Medicine [address] [place] [address] ProviderErika MD [address] [place], [place] [phone] Social History Tobacco Use Types Packs/Day Years [...] 1940 Associated Diagnoses: CAD (coronary artery disease), [place] coronary artery; Thrombocytopenia; Coronary artery disease; HTN [...] S1, S2, No edema. Integumentary: Warm, Dry, [place], incision is C/D/I. Neurologic: Alert, left sided [...] Prophylaxis: SCDs Diagnosis CAD (coronary artery disease), [place] coronary artery - Admitting, Medical. Thrombocytopenia - Working, Medical. Coronary artery disease - Discharge, Medical. HTN (hypertension) - Pre-Op Diagnosis, Medical. Hypothyroidism - Pre-Op Diagnosis, Medical. Aortic insufficiency - Admitting, Medical. Aortic insufficiency - Discharge, Medical. RLS (restless legs syndrome) - Pre-Op Diagnosis, Medical. Thoracic ascending aortic aneurysm - Admitting, Medical. Thoracic ascending aortic aneurysm - Discharge, Medical. Electronically signed by Parveen, [facility] Conversion Soda Column Operator Cerner at 12/08/2022 12:25 PM CDT documented in this encounter Plan of Treatment Not on file documented as of this encounter Visit Diagnoses Not on filedocumented in this encounter
--- OUTSIDE RECORDS SUMMARY | 2025-05-13 13:06 | XMS_ITS | Encounter Summary ---
Author Organization [employer] ([place], [place], [place], [place]) Address [address] [place] [address] Care Team Providers Care Compensation Intern Name Role Phone Unavailable Primary Care Provider Unavailabl e Encounter Details Date Type Department Care Team (Late st Contact Info) Description 11/17/2018 Transcribed Document [facility] [place] Family Medicine [address] [place] [address] ProviderErika MD [address] [place] [address] Social History Tobacco Use Types [...]
--- OUTSIDE RECORDS SUMMARY | 2025-05-13 13:06 | XMS_ITS | Encounter Summary ---
Author Organization [employer] ([place], [place], [place], [place]) Address [address] [place] [address] Care Team Providers Care Agriscience Instructor Name Role Phone Unavailable Primary Care Provider Unavailabl e Encounter Details Date Type Department Care Team (Late st Contact Info) Description 11/30/2018 Transcribed Document [facility] [place] Family Medicine [address] [place] [address] ProviderErika MD [address] [place] [address] Social History Tobacco Use Types [...] 3E room 330. Discussed w/ Carmen from [facility] who is still following pt. She has submitted pt info to for approval. Pt had EGD 11/29 which revealed duodenal ulcer w/ clot but no bleeding, no intervention needed, Off heparin gtt, watching pt's INR and H & H. Speech signed off today, pt is cleared for thins. Met w/ pt and family and informed them of [facility] situation. Also discussed outpt Cardiac Rehab. They prefer to go to [facility]. Phoned them and left msg, [...] (not seen on 11/25/18) followed up with [facility] today regarding possible admission - plan [...] (not seen on 11/25/18) followed up with [facility] today regarding possible admission - plan is to submit for approval today after being seen by therapy, for their MD approval. Once accepting MD in place, bed in place and patient is medically stable will be able to transfer due to patient not requiring a insurance prior auth. CM will continue to follow. ODALYS FAULKNER Rn-Silk Screener - 11/24/18 13:22:19 11/24/18 Andra from [facility] called to let me know they started a precert on this pt. CF ODALYS FAULKNER Rn-Silk Screener - 11/22/18 13:56:32 11/22/18 Pt has had a cva. Spoke to his Connie and son Sumeet at the bedside. Pt is lfacid on the left side. Discussed the need for STR and they decided on [facility]. Sent pt info via [employer] to [facility]. CF Documentation Status Complete : Yes SUZANNA HAINES Assistant Quality Manager - 11/30/2018 15:24 EDT Discharge Planning Details Persons Assisting Patient at Home : Spouse SUZANNA HAINES Social Worker - 11/30/2018 15:24 EDT Electronically signed by [facility] Conversion Sports Lawyer Felipe at 12/08/2022 12:27 PM CDT documented in this encounter Plan of Treatment Not on file documented as of this encounter Visit Diagnoses Not on filedocumented in this encounter
--- OUTSIDE RECORDS SUMMARY | 2025-05-13 13:06 | XMS_ITS | Encounter Summary ---
Author Organization [employer] ([place], [place], [place], [place]) Address [address] [place] [address] Care Team Providers Care Wedding Planner Name Role Phone Unavailable Primary Care Provider Unavailabl e Encounter Details Date Type Department Care Team (Late st Contact Info) Description 11/21/2018 Transcribed Document [facility] [place] [address] [place] [address] ProviderErika MD [address] [place] [address] Social History Tobacco Use Types [...] Source : Measured Height Entry Format : [place] Height, Feet : 6 ft Height, Inches [...]
--- OUTSIDE RECORDS SUMMARY | 2025-05-13 13:06 | XMS_ITS | Encounter Summary ---
Author Organization [employer] ([place], [place], [place], [place]) Address [address] [place] [address] Care Team Providers Care Silk Top Hat Body Maker Name Role Phone Unavailable Primary Care Provider Unavailabl e Encounter Details Date Type Department Care Team (Late st Contact Info) Description 11/25/2018 Transcribed Document [facility] [place] [address] [place] [address] ProviderErika MD [address] [place] [address] Social History Tobacco Use Types [...] Time of Assessment : 11/25/2018 9:00 EDT [facility] Clinician Administering Scale : Elissa Rodarte RN [...]
--- OUTSIDE RECORDS SUMMARY | 2025-05-13 13:06 | XMS_ITS | Encounter Summary ---
Author Organization [employer] ([place], [place], [place], [place]) Address [address] [place] [address] Care Team Providers Care Computer Lab Para Professional Name Role Phone Unavailable Primary Care Provider Unavailabl e Encounter Details Date Type Department Care Team (Late st Contact Info) Description 11/17/2018 Transcribed Document [facility] [place] [address] [place] [address] ProviderErika MD [address] [place] [address] Social History Tobacco Use Types [...]
--- OUTSIDE RECORDS SUMMARY | 2025-05-13 13:06 | XMS_ITS | Encounter Summary ---
Author Organization [employer] ([place], [place], [place], [place]) Address [address] [place] [address] Care Team Providers Care Fire Hydrant Operator Name Role Phone Unavailable Primary Care Provider Unavailabl e Encounter Details Date Type Department Care Team (Late st Contact Info) Description 11/29/2018 Transcribed Document [facility] [place] Family Medicine [address] [place] [address] ProviderErika MD [address] [place] [address] Social History Tobacco Use Types [...]
--- OUTSIDE RECORDS SUMMARY | 2025-05-13 13:06 | XMS_ITS | Encounter Summary ---
Author Organization [employer] ([place], [place], [place], [place]) Address [address] [place] [address] Care Team Providers Care Washer And Capper Machine Operator Name Role Phone Unavailable Primary Care Provider Unavailabl e Encounter Details Date Type Department Care Team (Late st Contact Info) Description 11/30/2018 Transcribed Document [facility] [place] [facility] [place] [address] ProviderErika MD [address] [place] [address] Social History Tobacco Use Types [...] Jose MD - 11/30/2018 3:31 PM CDT [address] [address] Patient Copy Patient Information: Name: DOTTIE VILLASENOR Current Date: 11/30/2018 15:31:38 : 1940 Patient Address: [address] [place] [id number] Patient Attending Physician: JULIO CESAR CARVALHO MD-CAT Primary Care Provider: DEMETRICE ARMIJO NP-[facility] Primary Care Provider Discharge Diagnosis: Acute blood loss anemia; Aortic insufficiency; Coronary artery disease; GI bleed; LUE DVT (deep venous thrombosis); Right MCA CVA (cerebral vascular accident); Thoracic ascending aortic aneurysm Weight on Admission: 174 lb, 5 oz Weight at Discharge: 164 lb, 1 oz Comment: Follow-up Instructions: With: Address: When: JOHN BOWEN [address], [address] [place] [address] Business (1) Within 6 weeks Comments: Patient should call for a follow up appointment with [facility]. Discharge Instructions: Driving after Discharge: Do not drive, Other: No driving or operating heavy machinery until released by a physician. Community Services: Outpt Cardiac Rehab [facility] [phone] They will call pt w/ appt time. [...] 09/17/2005 Document Revised: 01/15/2017 Document Reviewed: 02/10/2014 [employer] Interactive Patient Education ? 2017 [employer] CIGARETTE SMOKING: The facts are clear, cigarette smoking will shorten your life. Smoking can cause many illnesses along the way. As a healthcare provider, we recommend that you stop smoking. Assistance with quitting is available by contacting 3-598-GULO-NOW. This is a free resource providing counseling, [...] Be sure to sign up for the [facility] patient portal, which gives you 16/03 access to your medical information ??? including these discharge instructions ??? using your computer, smartphone, or tablet. Just go to [employer] to get started. Questions? Call . [facility] would like to thank you for allowing us to assist you with your healthcare needs. HAMILTON Jarvis ROBERT H, (or wireless sales representative) have received the above patient education materials/instructions and have verbalized understanding: Patient Signature _ Date/Time Patient Combined Rail Operator Signature (if needed) Date/Time Clinician/Hospital Combined Rail Operator Signature (if needed) Date/Time Electronically signed by Parveen [facility] Conversion District Court Judge Felipe at 12/08/2022 12:33 PM CDT documented in this encounter Plan of Treatment Not on file documented as of this encounter Visit Diagnoses Not on filedocumented in this encounter
--- OUTSIDE RECORDS SUMMARY | 2025-05-13 13:06 | XMS_ITS | Encounter Summary ---
Author Organization [employer] ([place], [place], [place], [place]) Address [address] [place] [address] Care Team Providers Care Autographer Name Role Phone Unavailable Primary Care Provider Unavailabl e Encounter Details Date Type Department Care Team (Late st Contact Info) Description 11/29/2018 Transcribed Document [facility] [place] [facility] [place] [address] ProviderErika MD [address] [id number] Social History Tobacco Use Types Packs/Day Years [...]
--- OUTSIDE RECORDS SUMMARY | 2025-05-13 13:06 | XMS_ITS | Encounter Summary ---
Author Organization [employer] ([place], [place], [place], [place]) Address [address] [place] [address] Care Team Providers Care Gasoline Tractor Operator Name Role Phone Unavailable Primary Care Provider Unavailabl e Encounter Details Date Type Department Care Team (Late st Contact Info) Description 11/22/2018 Transcribed Document [facility] [place] [address] [place] [address] ProviderErkia MD [address] [place] [address] Social [...] unspecified 11/17/2018 00:00 Atherosclerotic heart disease of [place] coronary artery without angina pectoris 11/17/2018 00:00 Essential (primary) hypertension 11/17/2018 00:00 Hypothyroidism, unspecified 11/17/2018 00:00 Nonrheumatic aortic (valve) insufficiency 11/17/2018 00:00 Restless legs syndrome 11/17/2018 00:00 Thoracic aortic aneurysm, without rupture 11/17/2018 00:00 Thrombocytopenia, unspecified 11/16/2018 00:00 Atherosclerotic heart disease of [place] coronary artery without angina pectoris 11/16/2018 [...] TARI MOORE OTR/L 11/23/2018 15:10 EDT Hand Factory Supervisor Test : trace with digits TARI MOORE [...] TARI MOORE OTR/Ginny - 11/23/2018 15:10 EDT Manager Card Goals, OT Self Feeding LTG Grid Goal [...]
--- OUTSIDE RECORDS SUMMARY | 2025-05-13 13:06 | XMS_ITS | Encounter Summary ---
Author Organization [employer] ([place], [place], [place], [place]) Address [address] [place] [address] Care Team Providers Care Fabric Designer Name Role Phone Unavailable Primary Care Provider Unavailabl e Encounter Details Date Type Department Care Team (Late st Contact Info) Description 11/22/2018 Transcribed Document [facility] [place] Family Medicine [address] [place] [address] ProviderErika MD [address] [place], [place] [phone] Social History Tobacco Use Types Packs/Day Years Used Date Smoking Tobacco: Never Assessed Sex and Gender Information Value Date Recorded Sex Assigned at Not on file Legal Sex Male 5:03 PM CDT Gender Identity Not on file Sexual Orientation Not on file documented as of this encounter Miscellaneous Notes * Cerner Conversion Note - Historical ProviderMD - 11/22/2018 2:00 AM CDT Hogshead Wrecker Details Entered On: 11/22/2018 6:09 EDT Performed [...] EDT Electronically signed by Christina Saini Conversion Associate Director Of Development Cerner at 12/08/2022 12:17 PM CDT documented in this encounter Plan of Treatment Not on file documented as of this encounter Visit Diagnoses Not on filedocumented in this encounter
--- OUTSIDE RECORDS SUMMARY | 2025-05-13 13:06 | XMS_ITS | Encounter Summary ---
Author Organization [employer] ([place], [place], [place], [place]) Address [address] [place] [address] Care Team Providers Care Engineering Department Chair Name Role Phone Unavailable Primary Care Provider Unavailabl e Encounter Details Date Type Department Care Team (Late st Contact Info) Description 11/23/2018 Transcribed Document [facility] [place] [address] [place] [address] ProviderErika MD [address] [place] [address] Social History Tobacco Use Types [...] unspecified 11/17/2018 00:00 Atherosclerotic heart disease of [place] coronary artery without angina pectoris 11/17/2018 00:00 Essential (primary) hypertension 11/17/2018 00:00 Hypothyroidism, unspecified 11/17/2018 00:00 Nonrheumatic aortic (valve) insufficiency 11/17/2018 00:00 Restless legs syndrome 11/17/2018 00:00 Thoracic aortic aneurysm, without rupture 11/17/2018 00:00 Thrombocytopenia, unspecified 11/16/2018 00:00 Atherosclerotic heart disease of [place] coronary artery without angina pectoris 11/16/2018 00:00 [...] AUDREY GRANDE OTR/Ginny - 11/30/2018 15:25 EDT Machinist Goals, OT Self Feeding LTG Grid [...] AUDREY GRANDE OTR/L - 11/30/2018 15:25 EDT AUDERY GRANDE OTR/L - 11/30/2018 15:25 EDT Treatment [...] Family present. MaxAx2 chair to bed transfer, PROGRAM HOST. RN assisting. Pt's L UE very weak. [...]
--- OUTSIDE RECORDS SUMMARY | 2025-05-13 13:06 | XMS_ITS | Encounter Summary ---
Author Organization [employer] ([place], [place], [place], [place]) Address [address] [place] [address] Care Team Providers Care Shift Mgr Name Role Phone Unavailable Primary Care Provider Unavailabl e Encounter Details Date Type Department Care Team (Late st Contact Info) Description 11/22/2018 Transcribed Document [facility] [place] [address] [place] [address] ProviderErika MD [address] [place] [address] Social History Tobacco Use Types Packs/Day Years Used Date Smoking Tobacco: Never Assessed Sex and Gender Information Value Date Recorded Sex Assigned at Not on file Legal Sex Male 5:03 PM CDT Gender Identity Not on file Sexual Orientation Not on file documented as of this encounter Miscellaneous Notes * Cerner Conversion Note - Historical ProviderMD - 11/22/2018 12:18 PM CDT CORROSION CONTROL SPECIALIST Attempt to Treat Entered On: 11/22/2018 12:20 EDT Performed On: 11/22/2018 12:18 EDT by JOSSUE RODRÍGUEZ SLP Attempt to Treat Inability to Treat Comment : New orders received from Neurologist. ST is currently following pt for dysphagia. Will await neuro dx for full communication JOSSUE Mccarthy, CORROSION CONTROL SPECIALIST - 11/22/2018 12:18 EDT documented in this encounter Plan of Treatment Not on file documented as of this encounter Visit Diagnoses Not on filedocumented in this encounter
--- OUTSIDE RECORDS SUMMARY | 2025-05-13 13:07 | XMS_ITS | Encounter Summary ---
Author Organization [employer] ([place], [place], [place], [place]) Address [address] [place] [address] Care Team Providers Care Firefighting Equipment Specialist Name Role Phone Unavailable Primary Care Provider Unavailabl e Encounter Details Date Type Department Care Team (Late st Contact Info) Description 11/20/2018 Transcribed Document [facility] [place] [address] [place] [address] ProviderErika MD [address] [place] [address] Social History Tobacco Use Types [...] TORREY ZUNIGA SLP General Information Visit Type, PARKING ASSISTANT : Initial evaluation Patient Orders : PARKING ASSISTANT Fxnl Limitation Documentation x 1 -111 Start: 11/20/18 8:39:00 EDT - SYSTEM, SYSTEM PARKING ASSISTANT Bedside Swallow Evaluation - Start: 11/20/18 8:38:00 EDT, Routine, For Swallow Eval and Treat -111 MICHAEL RODRIGUEZ MD Ordering Provider : MICHAEL RODRIGUEZ MD Admission Date : Admission Date/Time: 11/16/18 06:45:00 Personal Devices : Personal Devices No Devices Recorded Assistive Devices : Assistive Devices No Devices Recorded Active Diagnoses : 11/17/2018 00:00 Atherosclerotic heart disease of [place] coronary artery without angina pectoris 11/17/2018 00:00 Essential (primary) hypertension 11/17/2018 00:00 Hypothyroidism, unspecified 11/17/2018 00:00 Nonrheumatic aortic (valve) insufficiency 11/17/2018 00:00 Restless legs syndrome 11/17/2018 00:00 Thoracic aortic aneurysm, without rupture 11/17/2018 00:00 Thrombocytopenia, unspecified 11/16/2018 00:00 Atherosclerotic heart disease of [place] coronary artery without angina pectoris 11/16/2018 00:00 Nonrheumatic aortic (valve) insufficiency 11/16/2018 00:00 Thoracic aortic aneurysm, without rupture Therapy Diagnosis, PARKING ASSISTANT : overt signs and symptoms of aspiration at bedside Previous Speech/Language Evaluations : N/A Previous Swallow Precautions : N/A Previous Cognitive Evaluations : N/A Diet/Intake Prior to Current Admission : Regular/thin Diet/Intake During Current Admission : NPO Intubation Comment, PARKING ASSISTANT : 11/16-11/17 Vital Signs RTF : [...] : Nasal cannula 3 L/min TORREY ZUNIGA PARKING ASSISTANT - 11/20/2018 9:21 EDT General Status Patient Received Status, PARKING ASSISTANT : Long sitting in bed Patient Left Status, PARKING ASSISTANT : Long sitting in bed TORREY ZUNIGA [...] Hoarse, Other: Weak Resonance Types : Appropriate PARKING ASSISTANT Cough : Weak Facial Appearance: : Symmetrical [...] noted with thin via straw and puree. PARKING ASSISTANT unable to determine safe diet at bedside, recommend FEES to further assess swallow function. Continue NPO with alternate means of nutrition and meds until FEES. PARKING ASSISTANT discussed results and recs with patient and family. TORREY ZUNIGA SLP - 11/20/2018 9:26 EDT Impressions, BS Swallow : Signs/Symptoms of pharyngeal dysphagia Swallowing Outcome Measures : Functional Oral Intake Scale (FOIS) Functional Oral Intake Scale (FOIS) : Level I TORREY ZUNIGA PARKING ASSISTANT - 11/20/2018 9:21 EDT Swallow Recommendations Recommended Diet Type, SwRec : Non-oral feeding, NPO Swallow Position, SwRec : Upright 90 degrees Recommended Med Present, SwRec : Non-oral Recommended Exam, Sw Rec : FEES Repeat Swallow Exam Timeframe : 1-3 days TORREY ZUNIGA SLP - 11/20/2018 9:26 EDT Therapy Indication Assessment PARKING ASSISTANT Indicated : Yes PARKING ASSISTANT Problem List : Impaired, Swallowing TORREY ZUNIGA SLP - 11/20/2018 9:26 EDT Swallow Plan/Goals Treatment Frequency, PARKING ASSISTANT : 4 times per wk Treatment Duration, PARKING ASSISTANT : Two weeks TORREY ZUNIGA SLP - 11/20/2018 9:26 EDT Swallow LTG Grid PARKING ASSISTANT Residential Fee Appraiser Goal #1 Swallow LTG : Establish safe [...] TORREY ZUNIGA SLP - 11/20/2018 9:26 EDT PARKING ASSISTANT Education Assessment Grid 1 Diet Recommendation : Verbalizes understanding Dysphagia : Verbalizes understanding Non-Oral Nutrition : Verbalizes understanding NPO : Verbalizes understanding TORREY ZUNIGA SLP - 11/20/2018 9:26 EDT PARKING ASSISTANT Education Assessment Grid 2 Treatment Plan : Verbalizes understanding TORREY ZUNIGA SLP - 11/20/2018 9:[address] [facility] PARKING ASSISTANT Charges Evaluation Swallowing Function : 1 TORREY ZUNIGA SLP - 11/20/2018 9:26 EDT Functional Limitation Reporting, PARKING ASSISTANT Functional Limitation Visit Type, PARKING ASSISTANT : Initial evaluation Severity Determination Method, PARKING ASSISTANT : Clinical Judgment, Swallowing Swallow G8996 - Current Mod, PARKING ASSISTANT : 80 - 99% impaired, limited or restricted (CM) Swallow G8997 - Proj Goal Mod, PARKING ASSISTANT : 1 - 19% impaired, limited or restricted (CI) TORREY ZUNIGA SLP - 11/20/2018 9:26 EDT Electronically signed by Parveen [facility] Conversion Casing Machine Operator Cerner at 12/08/2022 12:30 PM CDT documented in this encounter Plan of Treatment Not on file documented as of this encounter Visit Diagnoses Not on filedocumented in this encounter
--- OUTSIDE RECORDS SUMMARY | 2025-05-13 13:07 | XMS_ITS | Encounter Summary ---
Author Organization [employer] ([place], [place], [place], [place]) Address [address] [place] [address] Care Team Providers Care Furnace Installer Helper Name Role Phone Unavailable Primary Care Provider Unavailabl e Encounter Details Date Type Department Care Team (Late st Contact Info) Description 11/28/2018 Transcribed Document [facility] [place] [address] [place] [address] ProviderErika MD [address] [place] [address] Social History Tobacco Use Types [...] access. 20R shoulder x1 attempt using vein hand lens polisher. Rapid Response Admission Diagnosis : Atherosclerotic heart disease of [place] coronary artery without angina pectoris Atherosclerotic heart disease of [place] coronary artery without angina pectoris Cerebral infarction, [...] change in location/level of care Rapid Response Furnace Installer Helper #1 : MICHAEL WALLER, RN MICHAEL WALLER, RN - 11/28/2018 13:58 EDT Electronically signed by Parveen [facility] Conversion Vessel Ordinary Seaman Cerner at 12/08/2022 12:28 PM CDT documented in this encounter Plan of Treatment Not on file documented as of this encounter Visit Diagnoses Not on filedocumented in this encounter
--- OUTSIDE RECORDS SUMMARY | 2025-05-13 13:07 | XMS_ITS | Encounter Summary ---
Author Organization [employer] ([place], [place], [place], [place]) Address [address] [place] [address] Care Team Providers Care Press Feeder Broomcorn Name Role Phone Unavailable Primary Care Provider Unavailabl e Encounter Details Date Type Department Care Team (Late st Contact Info) Description 11/23/2018 Transcribed Document [facility] [place] [address] [place] [address] ProviderErika MD [address] [place] [address] Social History Tobacco Use Types Packs/Day Years Used Date Smoking Tobacco: Never Assessed Sex and Gender Information Value Date Recorded Sex Assigned at Not on file Legal Sex Male 5:03 PM CDT Gender Identity Not on file Sexual Orientation Not on file documented as of this encounter Miscellaneous Notes * Cerner Conversion Note - Historical ProviderMD - 11/23/2018 1:36 PM CDT [employer] Skilled Maintenance Supervisor Details Entered On: 11/23/2018 16:44 EDT [...]
--- OUTSIDE RECORDS SUMMARY | 2025-05-13 13:07 | XMS_ITS | Encounter Summary ---
Author Organization [employer] [facility] ([place], [place], [place], [place]) Address [address] [place] [address] Care Team Providers Care Barrel Planer Name Role Phone Unavailable Primary Care Provider Unavailabl e Encounter Details Date Type Department Care Team (Late st Contact Info) Description 11/28/2018 Transcribed Document [facility] [place] [address] [place] [address] ProviderErika MD [address] [place] [address] Social History Tobacco Use Types Packs/Day Years Used Date Smoking Tobacco: Never Assessed Sex and Gender Information Value Date Recorded Sex Assigned at Not on file Legal Sex Male 5:03 PM CDT Gender Identity Not on file Sexual Orientation Not on file documented as of this encounter Miscellaneous Notes * Cerner Conversion Note - Erika ProviderMD - 11/28/2018 10:19 AM CDT [facility] Main OR IntraOp Summary Primary Physician: SAMAN BERNSTEIN MD-GAE Finalized Date/Time: 11/30/18 09:14:16 Pt. Name: DOTTIE VILLASENOR D.O.B./Sex: 1940 Male Med Rec #: [id number] Physician: JULIO CESAR CARVALHO MD-[facility] Financial #: [id number] Pt. Type: I Room/Bed: [facility]/1 Admit/Disch: 11/16/18 06:45:00 - Institution: [facility] IntraOp Case Attendance Entry 1 Entry 2 Entry 3 Case Attendee SAMAN BERNSTEIN MD-SALMA GARCIA MD WURTELE, JOHN L. Role Performed Surgeon/Proceduralist, Anesthesiologist Slat Basket Maker Helper Machine, Ancillary First Time In 11/28/18 10:10:00 11/28/18 10:10:00 11/28/18 10:10:00 Time Out 11/28/18 10:35:00 11/28/18 10:35:00 11/28/18 10:35:00 Procedure Esophagogastroduodenosco Esophagogastroduodenosco Esophagogastroduodenosco py py py Other Attendee Superficial Wound Closed By: Last Modified By: Sukumar Casanova, Sukumar Gibbs, Sukumar Gibbs RN 11/28/18 11:00:07 11/28/18 11:00:07 11/28/18 11:00:07 Entry 4 Entry 5 Case Attendee Dianne Garcia, Sukumar Gibbs, TONJA Role Performed Electromyographic Technician, First Electromyographic Technician, Second Time In 11/28/18 10:10:00 11/28/18 10:10:00 Time Out 11/28/18 10:35:00 11/28/18 10:35:00 Procedure Esophagogastroduodenosco Esophagogastroduodenosco py py Other Attendee Superficial Wound Closed By: Last Modified By: Sukumar Casanova, Sukumar Gibbs RN 11/28/18 11:00:07 11/28/18 11:00:07 [facility] IntraOp Case Attendance Audit 11/28/18 11:00:07 Kick Plate Installer: ANDRADES Modifier: PANTANOS 1 <+> Time Out 1 <*> Procedure Esophagogastroduodenoscopy 2 <+> Time Out 2 <*> Procedure Esophagogastroduodenoscopy 3 <+> Time Out 3 <*> Procedure Esophagogastroduodenoscopy 4 <+> Time Out 4 <*> Procedure Esophagogastroduodenoscopy 5 <+> Time Out 5 <*> Procedure Esophagogastroduodenoscopy 11/28/18 10:20:36 Kick Plate Installer: FABIANAANOS Modifier: PANTANOS <+> 1 Procedure 2 <+> Time In 2 <*> Procedure Esophagogastroduodenoscopy 3 <+> Time In 3 <*> Procedure Esophagogastroduodenoscopy 4 <+> Time In 4 <*> Procedure Esophagogastroduodenoscopy 5 <+> Time In 5 <*> Procedure Esophagogastroduodenoscopy [facility] IntraOp Case Times Entry 1 Patient In Room Time 11/28/18 10:10:00 Out Room Time 11/28/18 10:35:00 Anesthesia Start Time 11/28/18 10:10:00 Stop Time 11/28/18 10:35:00 Surgery / Procedure Times Start Time 11/28/18 10:19:00 Stop Time 11/28/18 10:33:00 Last Modified By: Sukumar Casanova RN 11/28/18 10:59:40 [facility] IntraOp Case Times Audit 11/28/18 10:59:40 Kick Plate Installer: PANTANOS Modifier: PANTANOS <+> 1 Out Room Time <+> 1 Stop Time <+> 1 Stop Time 11/28/18 10:22:00 Kick Plate Installer: PANTANOS Modifier: PANTANOS <+> 1 Start Time [facility] IntraOp Departure from OR Entry 1 Integumentary Assessment Transfer/Handoff Transfer to PACU Phase I Handoff Method Bedside/Face to face, Online nursing summary Post-op Transport Stretcher/Gurney Via Patient Transport Sukumar Casanova RN, Accompanied by SALMA MARROQUIN MD Last Modified By: Sukumar Casanova RN 11/28/18 10:25:50 [facility] IntraOp Departure from OR Audit 11/28/18 10:25:50 Kick Plate Installer: FABIANAANOS Modifier: PANTANOS 1 <*> Patient Transport Accompanied by Sukumar Casanova RN [facility] IntraOp Fire Risk Assessment Entry 1 Fire [...] Modified By: Sukumar Casanova RN 11/28/18 10:15:58 [facility] IntraOp General Case Gristmill Operator 1 Case Information OR OR [facility] Case Level 1 Room Verified Yes Wound Class II - Clean-Contaminated Specialty SN Gastroenterology Anesthesia Type General ASA Class 4E Diagnosis Preop Diagnosis GASTRIC BLEED Postop Same As Preop Yes Postop Diagnosis GASTRIC BLEED Last Modified By: Sukumar Casanova RN 11/28/18 10:18:38 [facility] IntraOp General Case Data Audit 11/28/18 10:18:38 Kick Plate Installer: WILL Modifier: PANTANOS <+> 1 Postop Same As Preop <+> 1 Preop Diagnosis <+> 1 Postop Diagnosis [facility] IntraOp Intraoperative Assessment Entry 1 Handoff Method Bedside/Face to face, Online nursing summary Valid History / Yes Physical in Chart Preoperative Yes Checklist Reviewed/Evaluated Allergies Reviewed Yes Patient is Latex No Sensitive Level of WDL Consciousness (WDL = Alert, Oriented to Person, Place, and Time) Skin Assessment No Verified Present Upon IVs Arrival to OR Last Modified By: Sukumar Casanova RN 11/28/18 10:21:06 [facility] IntraOp Intraoperative Equipment Entry 1 Type Monitoring Equipment Intraop Monitoring Electrocardiogram Three lead placement (ECG) Electrode Placement Blood Pressure Non-Invasive BP Device Source Blood Pressure Arm, right upper Location Pulse Oximeter Hand, left Probe Site Antiembolic Devices Scopes Photo/Video Documentation Last Modified By: Sukumar Casanova RN 11/28/18 10:21:34 [facility] IntraOp Patient Positioning Entry 1 Procedure Esophagogastroduodenosco [...] Modified By: Sukumar Casanova RN 11/28/18 10:20:33 [facility] IntraOp Sign In Entry 1 Patient, Site, [...] Modified By: Sukumar Casanova RN 11/28/18 10:22:31 [facility] IntraOp Sign Out Entry 1 RN Confirmation [...] Checklist Yes Elements Complete? RN Sign Out uSkumar Casanova RN Signature RN Sign Out 11/28/18 [...] Modified By: Sukumar Casanova RN 11/28/18 11:00:01 [facility] IntraOp Sign Out Audit 11/28/18 11:00:01 Kick Plate Installer: WILL Modifier: WILL <+> 1 RN Sign Out Signature Date/Time [facility] IntraOp Surgical Procedures Entry 1 Procedure Esophagogastroduodenosco py Additional (EGD WITH CONTROL OF Procedure BLEEDING) Description Primary Procedure Yes Primary Surgeon SAMAN BERNSTEIN MD-TAO Start 11/28/18 10:19:00 Stop 11/28/18 10:33:00 Anesthesia Type General Specialty SN Gastroenterology Wound Class II - Clean-Contaminated Last Modified By: Sukumar Casanova RN 11/28/18 10:59:52 [facility] IntraOp Surgical Procedures Audit 11/28/18 10:59:52 Kick Plate Installer: WILL Modifier: WILL 1 <*> Procedure Esophagogastroduodenoscopy 1 <+> Specialty 11/28/18 10:59:43 Kick Plate Installer: WILL Modifier: WILL <+> 1 Start <+> 1 Stop [facility] IntraOp Temp Regulation Devices Entry 1 Temp Regulation Temperature Warm blankets Regulation Device Temperature Full body Regulation Site Last Modified By: Sukumar Casanova RN 11/28/18 10:26:13 [facility] IntraOP Time Out Entry 1 Procedure to [...] Modified By: Sukumar Casanova RN 11/28/18 10:21:53 [facility] IntraOP Time Out Audit 11/28/18 10:21:53 Kick Plate Installer: WILL Modifier: WILL 1 <+> Time Out Pause Time 1 <*> Procedure to be Performed Esophagogastroduodenoscopy Case Comments <None> Finalized By: JODI PITT Document Signatures Signed By: Sukumar Casanova RN 11/28/18 11:00 JODI PITT 11/30/18 09:14 Unfinalized History Date/Time Username Reason for Unfinalizing Freetext Reason for Unfinalizing 11/30/18 09:13 [email or web address] Correct Billing Electronically signed by Parveen [facility] Conversion Occupational Therapy Department Chair Cerner at 12/08/2022 12:19 PM CDT documented in this encounter Plan of Treatment Not on file documented as of this encounter Visit Diagnoses Not on filedocumented in this encounter
--- OUTSIDE RECORDS SUMMARY | 2025-05-13 13:07 | XMS_ITS | Encounter Summary ---
Author Organization [employer] ([place], [place], [place], [place]) Address [address] [place] [address] Care Team Providers Care Building Manager Name Role Phone Unavailable Primary Care Provider Unavailabl e Encounter Details Date Type Department Care Team (Late st Contact Info) Description 11/28/2018 Transcribed Document [facility] [place] [address] [place] [address] ProviderErika MD [address] [place] [address] Social History Tobacco Use Types [...] : Transfer to critical care Rapid Response Building Manager #1 : MICHAEL WALLER RN Rapid Response Building Manager #2 : DIA BINGHAM RN Rapid Response Building Manager #3 : SRINIVAS LEAL RN [place], [place], [...] Team Initiation Reason Details : 3E 333. MUTUAL FUNDS AGENT notified of pt with decrease in BP despite treatment. MD notified. Bolus given and pt labwork obtained. 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
--- OUTSIDE RECORDS SUMMARY | 2025-05-13 13:07 | XMS_ITS | Encounter Summary ---
Author Organization [employer] ([place], [place], [place], [place]) Address [address] [place] [address] Care Team Providers Care Recovery Engineer Name Role Phone Unavailable Primary Care Provider Unavailabl e Encounter Details Date Type Department Care Team (Late st Contact Info) Description 12/01/2018 Transcribed Document [facility] [place] [address] [place] [address] ProviderErika MD [address] [place] [address] Social History Tobacco Use Types [...]
--- OUTSIDE RECORDS SUMMARY | 2025-05-13 13:07 | XMS_ITS | Encounter Summary ---
Author Organization [employer] ([place], [place], [place], [place]) Address [address] [place] [address] Care Team Providers Care L D Rn Name Role Phone Unavailable Primary Care Provider Unavailabl e Encounter Details Date Type Department Care Team (Late st Contact Info) Description 11/25/2018 Transcribed Document [facility] [place] [address] [place] [address] ProviderErika MD [address] [place] [address] Social History Tobacco Use Types [...]
--- OUTSIDE RECORDS SUMMARY | 2025-05-13 13:07 | XMS_ITS | Encounter Summary ---
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 No needs at this time. Roman Catholic Preference : Pentecostal MALU SHEPARD Chaplain-Non Cert - 11/28/2018 5:34 EDT Electronically signed by Christina Saini Conversion Configuration Management Analyst Felipe at 12/08/2022 12:11 PM CDT documented in this encounter Plan of Treatment Not on file documented as of this encounter Visit Diagnoses Not on filedocumented in this encounter
--- OUTSIDE RECORDS SUMMARY | 2025-05-13 13:07 | XMS_ITS | Encounter Summary ---
Author Organization [employer] ([place], [place], [place], [place]) Address [address] [place] [address] Care Team Providers Care Bathhouse Keeper Name Role Phone Unavailable Primary Care Provider Unavailabl e Encounter Details Date Type Department Care Team (Late st Contact Info) Description 12/01/2018 Transcribed Document [facility] [place] [address] [place] [address] ProviderErika MD [address] [place] [address] Social History Tobacco Use Types [...] MD - 12/01/2018 3:[address] [facility] [place] [address] VILLASENOR DOTTIE Pickering :1940 Visit Time:11/16/2018 Your Visit Summary Your Care Team Admitting Physician - JULIO CESAR CARVALHO MD-CAT Attending Physician - JULIO CESAR CARVALHO MD-YADIRA Primary Care Physician - DEMETRICE ARMIJO NP-FAM Referring Physician - DEMETRICE ARMIJO NP-FAM Your Diagnosis Acute blood loss anemia Aortic insufficiency, Aortic insufficiency CAD (coronary artery disease), [place] coronary artery, Coronary artery disease GI bleed [...] do next Instructions From Your Care Team [facility]-Stroke Unit RN report #[phone] [place] Summary #[phone] You may shower. Make sure your back [...] IF you have a fever greater than [id number], call the surgeon. DO NOT drive for [...] Where: [address] [facility] [address]- Business (1) Follow Up with JULIO CESAR CARVALHO When 12/15/2018 12:15 PM EDT Where: [address] [place] [address] Business (1) Follow Up with DEMETRICE ARMIJO When Within 1 week Comments When you are discharged from [facility] please call to make a 1 week hospital follow-up appointment. Where: [address] [place] [address]- Follow Up with JOHN BOWEN When Within 6 weeks Comments Patient should call for a follow up appointment with [facility]. Where: [address] [place] [address]- Business (1) Medications What How [...] contain harmful chemicals. FOR MORE INFORMATION ??? [place] [employer]: www.lung.org ??? [place] [employer]: www.cancer.org This information is not intended to replace advice given to you by your health care provider. Make sure you discuss any questions you have with your health care provider. Document Released: 09/17/2005 Document Revised: 12/01/2016 Document Reviewed: 01/30/2014 [employer] Patient Education ?? 2017 [employer]. How to Take Your Blood Pressure HOW [...] 02/14/2004 Document Revised: 02/27/2017 Document Reviewed: 01/13/2017 [employer] Patient Education ?? 2017 [employer] Coronary Artery Bypass Grafting, Care After [...] 02/27/2006 Document Revised: 08/31/2015 Document Reviewed: 01/17/2014 [employer] Patient Education ?? 2017 [employer] Bleeding Precautions When on Anticoagulant Therapy [...] can be dangerous for you. ??? Many cazr-kpn-lvwrqnp medicines for pain, colds, or stomach problems [...] provider. Document Released: 07/21/2016 Document Reviewed: 07/21/2016 [employer] Patient Education ?? 2017 [employer] Atrial Fibrillation Introduction Atrial fibrillation is [...] Follow these instructions at home: ??? Take joas-urd-vusjcvy and prescription medicines only as told by [...] 09/17/2005 Document Revised: 01/15/2017 Document Reviewed: 02/10/2014 [employer] Patient Education ?? 2017 [employer]. misoprostol (reji ramos) [facility] What is the most important [...] disease; or ?? if you are dehydrated. [facility] category X. Misoprostol can cause defects, premature [...] may report side effects to FDA at 8-142-QCY-4131. What other drugs will affect misoprostol? Other drugs may interact with misoprostol, including prescription and jijf-ice-gdewbvu medicines, vitamins, and herbal products. Tell each [...] to ensure that the information provided by [employer]. ('[employer]') is accurate, up-to-date, and complete, but no guarantee is made to that effect. Drug information contained herein may be time sensitive. [employer] information has been compiled for use by healthcare practitioners and consumers in the [place] and therefore [employer] does not warrant that uses outside of the [place] are appropriate, unless specifically indicated otherwise. [employer] drug information does not endorse drugs, diagnose patients or recommend therapy. [employer] drug information is an informational resource designed [...] effective or appropriate for any given patient. [facility] does not assume any responsibility for any aspect of healthcare administered with the aid of information [facility] provides. The information contained herein is not intended to cover all possible uses, directions, precautions, warnings, drug interactions, allergic reactions, or adverse effects. If you have questions about the drugs you are taking, check with your doctor, nurse or pharmacist. Copyright 3171-6025 [facility] [employer] [facility] [facility]. Version: 8.01. Revision Date: 03/02/2014.sucralfate (oral) [...] may report side effects to FDA at 5-013-PPI-2322. What other drugs will affect sucralfate? Sucralfate can make it harder for your body to absorb other medications you take by mouth. Avoid taking any other medications within 2 hours before or after you take sucralfate. Other drugs may interact with sucralfate, including prescription and sqel-suq-xcwewra medicines, vitamins, and herbal products. Tell each [...] to ensure that the information provided by [employer]. ('[employer]') is accurate, up-to-date, and complete, but no guarantee is made to that effect. Drug information contained herein may be time sensitive. [employer] information has been compiled for use by healthcare practitioners and consumers in the [place] and therefore [employer] does not warrant that uses outside of the [place] are appropriate, unless specifically indicated otherwise. [employer] drug information does not endorse drugs, diagnose patients or recommend therapy. [employer] drug information is an informational resource designed [...] effective or appropriate for any given patient. [employer] does not assume any responsibility for any aspect of healthcare administered with the aid of information [employer] provides. The information contained herein is not intended to cover all possible uses, directions, precautions, warnings, drug interactions, allergic reactions, or adverse effects. If you have questions about the drugs you are taking, check with your doctor, nurse or pharmacist. Copyright 9407-1432 [employer]. Version: 8.01. Revision Date: 01/03/2013.sucralfate (oral) (angelica [...] may report side effects to FDA at 2-423-UAP-4142. What other drugs will affect sucralfate? Sucralfate can make it harder for your body to absorb other medications you take by mouth. Avoid taking any other medications within 2 hours before or after you take sucralfate. Other drugs may interact with sucralfate, including prescription and wplt-rtn-ftieevg medicines, vitamins, and herbal products. Tell each [...] to ensure that the information provided by [employer]. ('[employer]') is accurate, up-to-date, and complete, but no guarantee is made to that effect. Drug information contained herein may be time sensitive. [employer] information has been compiled for use by healthcare practitioners and consumers in the [place] and therefore [employer] does not warrant that uses outside of the [place] are appropriate, unless specifically indicated otherwise. [employer] drug information does not endorse drugs, diagnose patients or recommend therapy. [employer] drug information is an informational resource designed [...] effective or appropriate for any given patient. [facility] does not assume any responsibility for any aspect of healthcare administered with the aid of information [facility] provides. The information contained herein is not intended to cover all possible uses, directions, precautions, warnings, drug interactions, allergic reactions, or adverse effects. If you have questions about the drugs you are taking, check with your doctor, nurse or pharmacist. Copyright 9710-2659 [employer]. Version: 8.01. Revision Date: 01/03/2013. Emergency Awareness [...] Assistance with quitting is available by contacting 8-280-LUJH-NOW. This is a free resource providing counseling, [...] worse. Electronically signed by Parveen, Christina [employer] Traveling Sales Executive [employer]ner at 12/08/2022 12:20 PM CDT documented in this encounter Plan of Treatment Not on file documented as of this encounter Visit Diagnoses Not on filedocumented in this encounter
--- OUTSIDE RECORDS SUMMARY | 2025-05-13 13:07 | XMS_ITS | Encounter Summary ---
Author Organization [employer] ([place], [place], [place], [place]) Address [address] [place] [address] Care Team Providers Care Fruit Preserver Name Role Phone Unavailable Primary Care Provider Unavailabl e Encounter Details Date Type Department Care Team (Late st Contact Info) Description 11/25/2018 Transcribed Document [facility] [place] Medicine [address] [place] [address] ProviderErika MD [address] [place] [address] Social History Tobacco Use Types [...] Patient was being put on the bed balderraam; willl check back 11/26. Notification : SENIA Snyder PTA - 11/25/2018 15:07 EDT Electronically signed by Christina Saini [employer] Field Technician Cerner at 12/08/2022 12:26 PM CDT documented in this encounter Plan of Treatment Not on file documented as of this encounter Visit Diagnoses Not on filedocumented in this encounter
--- OUTSIDE RECORDS SUMMARY | 2025-05-13 13:07 | XMS_ITS | Encounter Summary ---
Author Organization [employer] ([place], [place], [place], [place]) Address [address] [place] [address] Care Team Providers Care Canary Raiser Name Role Phone Unavailable Primary Care Provider Unavailabl e Encounter Details Date Type Department Care Team (Late st Contact Info) Description 11/18/2018 Transcribed Document [facility] [place] [address] [place] [address] ProviderErika MD [address] [place], [...]
--- OUTSIDE RECORDS SUMMARY | 2025-05-13 13:07 | XMS_ITS | Encounter Summary ---
Author Organization [employer] ([place], [place], [place], [place]) Address [address] [place] [address] Care Team Providers Care Trial Manager Name Role Phone Unavailable Primary Care Provider Unavailabl e Encounter Details Date Type Department Care Team (Late st Contact Info) Description 11/16/2018 Transcribed Document [facility] [place] Family Medicine [address] [place] [address] ProviderErika MD [address] [place] [address] Social History Tobacco Use Types Packs/Day Years Used Date Smoking Tobacco: Never Assessed Sex and Gender Information Value Date Recorded Sex Assigned at Not on file Legal Sex Male 5:03 PM CDT Gender Identity Not on file Sexual Orientation Not on file documented as of this encounter Miscellaneous Notes * Cerner Conversion Note - Erika ProviderMD - 11/16/2018 8:20 AM CDT [facility] Main OR IntraOp Summary Primary Physician: JULIO CESAR CARVALHO MD-CAT Finalized Date/Time: 11/17/18 10:03:54 Pt. Name: DOTTIE VILLASENOR D.O.B./Sex: 1940 Male Med Rec #: [id number] Physician: JULIO CESAR CARVALHO MD-CAT Financial #: [id number] Pt. Type: I Room/Bed: [facility] Admit/Disch: 11/16/18 06:45:00 - Institution: [facility] IntraOp Case Attendance Entry 1 Entry 2 Entry 3 Case Attendee JULIO CESAR CARVALHO MD-CAT ALTIZER, LISA E, RN Alton Gamble, remote inpatient coder Role Performed Surgeon/Proceduralist, Walking Dragline Operator, First Director Of Outside Sales First Time In 11/16/18 07:06:00 11/16/18 07:06:00 [...] CAROLYN, RN Role Performed Scrub, First Anesthesiologist Walking Dragline Operator, Second Time In 11/16/18 07:06:00 11/16/18 07:06:00 [...] Pref Card Builder Role Performed Physician assistant plant controller Physician assistant plant controller Walking Dragline Operator, Second Time In 11/16/18 07:06:00 11/16/18 09:00:00 [...] Attendee Colette Alexander, LISETH Dimas, Alton Gamble, remote inpatient coder Pref Card Builder Director Of Outside Sales Role Performed Scrub, First Director Of Outside Sales Director Of Outside Sales Time In 11/16/18 10:32:00 11/16/18 11:05:00 11/16/18 [...] 12:25:17 Entry 13 Case Attendee LISETH ROE, Director Of Outside Sales Role Performed Director Of Outside Sales Time In 11/16/18 12:13:00 Time Out 11/16/18 12:30:00 Procedure Aortic Aneurysm Ascending Repair, CABG w Aortic Valve, Transesophageal Echocardiogram Other Attendee Superficial Wound Closed By: Last Modified By: RADHA VALENCIA, TONJA 11/16/18 12:40:56 [facility] IntraOp Case Attendance Audit 11/16/18 12:40:56 Binder Cutter Hand: ALTIZEL Modifier: ALTIZEL 1 <+> Time Out [...] w Aortic Valve, Transesophageal Echocardiogram 11/16/18 12:25:17 Binder Cutter Hand: ALTIZEL Modifier: ALTIZEL 12 <+> Time Out 12 <*> Procedure Aortic Aneurysm Ascending Repair, CABG w Aortic Valve <+> 13 Case Attendee <+> 13 Role Performed <+> 13 Time In <+> 13 Procedure 11/16/18 11:17:39 Binder Cutter Hand: ALTIZEL Modifier: ALTIZEL <+> 12 Case Attendee <+> 12 Role Performed <+> 12 Time In <+> 12 Procedure 11/16/18 11:17:17 Binder Cutter Hand: ALTIZEL Modifier: ALTIZEL 3 <+> Time Out 3 <*> Procedure Transesophageal Echocardiogram <+> 11 Case Attendee <+> 11 Role Performed <+> 11 Time In <+> 11 Time Out <+> 11 Procedure <+> 11 Other Attendee 11/16/18 10:47:10 Binder Cutter Hand: ALTIZEL Modifier: ALTIZEL <+> 10 Case Attendee <+> 10 Role Performed <+> 10 Time In <+> 10 Time Out <+> 10 Procedure <+> 10 Other Attendee 11/16/18 09:58:31 Binder Cutter Hand: ALTIZEL Modifier: ALTIZEL <+> 1 Procedure <+> 2 Procedure <+> 3 Procedure <+> 4 Procedure <+> 5 Procedure <+> 6 Procedure 7 <*> Procedure Aortic Aneurysm Ascending Repair, CABG w Aortic Valve 8 <*> Procedure Aortic Aneurysm Ascending Repair, CABG w Aortic Valve 9 <*> Procedure Aortic Aneurysm Ascending Repair, CABG w Aortic Valve 11/16/18 09:50:06 Binder Cutter Hand: ALTIZEL Modifier: ALTIZEL 9 <+> Time Out 9 <*> Procedure Aortic Aneurysm Ascending Repair, CABG w Aortic Valve 11/16/18 09:39:14 Binder Cutter Hand: ALTIZEL Modifier: ALTIZEL <+> 9 Case Attendee <+> 9 Role Performed <+> 9 Time In <+> 9 Procedure <+> 9 Other Attendee 11/16/18 09:28:12 Binder Cutter Hand: ALTIZEL Modifier: ALTIZEL <+> 8 Case Attendee <+> 8 Role Performed <+> 8 Time In <+> 8 Procedure 11/16/18 08:24:20 Binder Cutter Hand: ALTIZEL Modifier: ALTIZEL 7 <+> Time Out 7 <*> Procedure Aortic Aneurysm Ascending Repair, CABG w Aortic Valve 11/16/18 08:21:45 Binder Cutter Hand: ALTIZEL Modifier: ALTIZEL <+> 6 Time Out 11/16/18 08:10:59 Binder Cutter Hand: ALTIZEL Modifier: ALTIZEL 6 <*> Time In 11/16/18 07:00:00 <+> 7 Case Attendee <+> 7 Role Performed <+> 7 Time In <+> 7 Procedure 11/16/18 07:19:51 Binder Cutter Hand: ALTIZEL Modifier: ALTIZEL <+> 2 Time In <+> 3 Time In <+> 4 Time In <+> 5 Time In 11/16/18 07:19:37 Binder Cutter Hand: ALTIZEL Modifier: ALTIZEL <+> 1 Time In <+> 2 Case Attendee <+> 2 Role Performed <+> 3 Case Attendee <+> 3 Role Performed <+> 4 Case Attendee <+> 4 Role Performed <+> 5 Case Attendee <+> 5 Role Performed <+> 6 Case Attendee <+> 6 Role Performed <+> 6 Time In [facility] IntraOp Case Times Entry 1 Patient In Room Time 11/16/18 07:06:00 Out Room Time 11/16/18 12:30:00 Anesthesia Start Time 11/16/18 07:06:00 Stop Time 11/16/18 12:30:00 Anesthesia Ready 11/16/18 07:06:00 Surgery / Procedure Times Start Time 11/16/18 08:20:00 Stop Time 11/16/18 12:22:00 Last Modified By: RADHA VALENCIA RN 11/16/18 07:17:32 [facility] IntraOp Case Times Audit 11/16/18 12:30:30 Binder Cutter Hand: ALTIZEL Modifier: ALTIZEL <+> 1 Out Room Time <+> 1 Stop Time <+> 1 Stop Time 11/16/18 08:21:57 Binder Cutter Hand: ALTIZEL Modifier: ALTIZEL <+> 1 Start Time [facility] IntraOp Cautery Entry 1 ESU Identification Cautery Type Monopolar ESU ID Number [id number] ID Type Hospital Number Cautery Settings Cut [...] Modified By: RADHA VALENCIA RN 11/16/18 08:42:12 [facility] IntraOp Communication Entry 1 Entry 2 Entry [...] RN 11/16/18 11:53:58 11/16/18 12:13:00 11/16/18 12:13:00 [facility] IntraOp Communication Audit 11/16/18 12:13:00 Binder Cutter Hand: ALTIZEL Modifier: ALTIZEL <+> 8 Communication By <+> 8 Date and Time <+> 8 Communication To <+> 9 Communication By <+> 9 Date and Time <+> 9 Communication To <+> 9 Comment 11/16/18 11:53:58 Binder Cutter Hand: ALTIZEL Modifier: ALTIZEL <+> 7 Communication By <+> 7 Date and Time <+> 7 Communication To <+> 7 Comment 11/16/18 11:31:42 Binder Cutter Hand: ALTIZEL Modifier: ALTIZEL <+> 6 Communication By <+> 6 Date and Time <+> 6 Communication To 11/16/18 10:22:56 Binder Cutter Hand: ALTIZEL Modifier: ALTIZEL <+> 5 Communication By <+> 5 Date and Time <+> 5 Communication To 11/16/18 09:10:41 Binder Cutter Hand: ALTIZEL Modifier: ALTIZEL <+> 3 Communication By <+> 3 Date and Time <+> 3 Communication To <+> 4 Communication By <+> 4 Date and Time <+> 4 Communication To <+> 4 Comment [facility] IntraOp Counts Verification Entry 1 Entry 2 [...] LISA E, RN 11/16/18 07:20:29 11/16/18 11:54:29 [facility] IntraOp Counts Verification Audit 11/16/18 11:54:29 Binder Cutter Hand: ALTIZEL Modifier: ALTIZEL <+> 2 Procedure <+> 2 Count Type <+> 2 Counts Verification Sequence <+> 2 Count Results <+> 2 Count Performed By (Scrub) <+> 2 Count Performed By (RN) 11/16/18 09:58:33 Binder Cutter Hand: ALTIZEL Modifier: ALTIZEL 1 <*> Procedure Aortic Aneurysm Ascending Repair, CABG w Aortic Valve [facility] IntraOp Counts Final Entry 1 Procedure Aortic Aneurysm Ascending Repair, CABG w Aortic Valve, Transesophageal Echocardiogram Final Count Info Count Type Sponge, Sharps, Instrument, Miscellaneous Counts Verification Skin Closure/end of Sequence procedure Count Results Correct, surgeon notified Counts Performed By Count Performed By MELODY MASON (Scrub) Count Performed By RADHA VALENCIA RN (RN) Last Modified By: RADHA VALENCIA RN 11/16/18 12:01:46 [facility] IntraOp Cultures and Spec Summary Entry 1 Cultrures and Specimens Specimen Ordered: Yes Specimens Types Pathology Specimen(s) Labeled Pathology and Sent to Last Modified By: RADHA VALENCIA RN 11/16/18 09:22:38 [facility] IntraOp Departure from OR Entry 1 Integumentary Assessment Integumentary WDL Assessment WDL Transfer/Handoff Transfer to ICU - Cardiovascular Post-op Transport Bed (including Via specialty) Patient Transport SHERRY NICHOLS, Accompanied by Tye KHAN Tom, remote inpatient coder Last Modified By: RADHA VALENCIA RN 11/16/18 08:42:33 [facility] IntraOp Drains and Tubes Entry 1 Entry [...] LISA E, RN 11/16/18 08:42:54 11/16/18 08:42:54 [facility] IntraOp Dressing and Packing Entry 1 Entry 2 Type Dressing Dressing Location Mediastinum Mediastinum Wound Dressing Item 4x4's, Skin Closure Glue 4x4's Wound Packing Type Tape Type Supplemental Applications Applied By Other Comments Soft cloth paper tape Soft cloth paper tape Last Modified By: RADHA VALENCIA RN ALTIZER, LISA E, RN 11/16/18 08:43:06 11/16/18 08:53:50 [facility] IntraOp Dressing and Packing Audit 11/16/18 08:53:50 Binder Cutter Hand: SAIGEIZEL Modifier: ALTIZEL <+> 2 Type <+> 2 Location <+> 2 Wound Dressing Item <+> 2 Other Comments [facility] IntraOp Fire Risk Assessment Entry 1 Fire [...] Modified By: RADHA VALENCIA RN 11/16/18 07:20:01 [facility] IntraOp Fire Risk Assessment Audit 11/16/18 08:43:21 Binder Cutter Hand: SAIGEIZEL Modifier: ALTIZEL 1 <*> Fire Risk Assessment Verified 11/16/18 07:19:00 Date/Time [facility] IntraOp General Case Tile Picker 1 Case Information OR OR 14 [facility] Case Level 2 Room Verified Yes Wound Class I - Clean Specialty SN Cardio Thoracic Anesthesia Type General ASA Class 4 Diagnosis Preop Diagnosis CAD, AORTIC VALVE DISEASE, ASCENDING AORTIC ANEURSYM Postop Diagnosis SEE MD POST OP NOTE Last Modified By: RADHA VALENCIA RN 11/16/18 08:50:46 [facility] IntraOp Implant Log Entry 1 Entry 2 Type Implant (Synthetic) Tissue Implant (Biologic) Implant Log Implant Type Grafts, non-biological Tissue Implant Type Heart valve Implant [facility] PLAT VALVE AORT ROOT Identification [id number] [facility] [id number] Description Implant Quantity 1 1 Implant Site AORTA AORTA Implant Identification Model Number Implant [id number] Identification Serial Number Implant Identification Lot Number Implant Michel Ind:Maquet:Cv Medtronic:Card Surg:Tech Identification Caddy Master Name: Implant [id number] Identification Catalog Number Implant Size Implant Has an Yes Yes Expiration Date Implant Expiration 08/23/23 05/20/22 Date Wasted Radioactive Material Time Implanted Tissue Implant Continue for Tissue Implant Documentation Tissue Identification Number Graft Prep Per Yes Caddy Master Instructions: Tissue Preparation N/A Method: Reconstitution Solution: Reconstitution Solution Lot Number Reconstitution Solution Expiration Date: Thawing Solution Thawing Solution Lot Number Thawing Solution Expiration Date Preparation NACL Materials, Other Preparation [id number] Materials, Other Lot Number Preparation 06/22/22 Materials, Other Expiration Date Tissue MARLON, MELODY Prepared/Processed By Caddy Master Yes Paperwork Completed Implant Type Comment Last Modified By: RADHA VALENCIA RN ALTIZER, LISA E, RN 11/16/18 09:42:38 11/16/18 09:42:38 [facility] IntraOp Intraoperative Assessment Entry 1 Handoff Reported [...] Modified By: RADHA VALENCIA RN 11/16/18 08:25:54 [facility] IntraOp Intraoperative Equipment Entry 1 Equipment Intraop Monitoring Blood Pressure Non-Invasive BP Device Source Blood Pressure Arm, right upper Location Pulse Oximeter Hand, left Probe Site Antiembolic Devices Scopes Photo/Video Documentation Last Modified By: RADHA VALENCIA RN 11/16/18 08:51:22 [facility] IntraOp Medication Admin Entry 1 Entry 2 Entry 3 Medication/Irrigant papverine HCL 30mg/ml lidocaine 1% 50ml vial NS 0.9% 50ml injection 10ml - [id number] - [id number] - [id number] Combo Med List Time Administered Route of FLUSH MAMMARY LOCAL FLUSH Administration Dose Dose 150 8 30 Unit of Measure mg ml ml Volume Administered By JULIO CESAR CARVALHO MD-[facility] ERASMO LÓPEZ PA MEECE, PAUL, PA Procedure Irrigation Irrigant Volume In Irrigant Volume Out Last Modified By: RADHA VALENCIA RN ALTIZER, LISA E, RN ALTIZER, LISA E, RN 11/16/18 08:52:11 11/16/18 11:07:14 11/16/18 08:52:11 Entry 4 Entry 5 Medication/Irrigant Ancef 1Gm advantage KT TISSEEL VH SD vial - [id number] Combo Med List Time Administered Route of IRRIGATION TOPICAL Administration Dose Dose 1 10 Unit of Measure gram ml Volume Administered By JULIO CESAR CARVALHO MD-CAT JULIO CESAR CARVALHO MD-CAT Procedure Irrigation Irrigant Volume In Irrigant Volume Out Last Modified By: RADHA VALENCIA RN ALTIZER, LISA E, RN 11/16/18 08:52:11 11/16/18 09:49:07 [facility] IntraOp Medication Admin Audit 11/16/18 11:07:14 Binder Cutter Hand: ALTIZEL Modifier: ALTIZEL 2 <*> Medication/Irrigant lidocaine 1% 50ml vial - [id number] 2 <*> Administered By ALLA SORIANO RN 11/16/18 09:49:07 Binder Cutter Hand: ALTIZEL Modifier: ALTIZEL <+> 5 Medication/Irrigant <+> 5 Route of Administration <+> 5 Administered By <+> 5 Dose <+> 5 Unit of Measure [facility] IntraOp Patient Positioning Entry 1 Procedure Aortic [...] Modified By: RADHA VALENCIA RN 11/16/18 08:49:03 [facility] IntraOp Patient Positioning Audit 11/16/18 09:58:34 Binder Cutter Hand: ALTIZEL Modifier: ALTIZEL 1 <*> Procedure Aortic Aneurysm Ascending Repair, CABG w Aortic Valve [facility] IntraOp Sign In Entry 1 Patient, Site, [...] Modified By: RADHA VALENCIA RN 11/16/18 07:19:47 [facility] IntraOp Sign Out Entry 1 RN Confirmation [...] Modified By: RADHA VALENCIA RN 11/16/18 12:41:17 [facility] IntraOp Skin Prep Entry 1 Procedure Transesophageal Echocardiogram Prescribed Yes Pre-Surgical Prep Completed Prep Area Chin to TOES Intraop Prep Integumentary WDL Assessment WDL Patients Normal WDL Integumentary Variance(s) Prep Agents Chloraprep Prep by RADHA VALENCIA RN Skin Prep Comment Xander Soriano also prepped Hair Removal Last Modified By: RADHA VALENCIA RN 11/16/18 08:52:45 [facility] Intra[facility] Skin Prep Audit 11/16/18 09:58:34 Binder Cutter Hand: ALTIZEL Modifier: ALTIZEL <+> 1 Procedure [facility] IntraOp Surgical Procedures Entry 1 Entry 2 [...] I - Clean Last Modified By: RADHA VLAENCIA RN ALTIZER, LISA E, RN ALTIZER, LISA E, RN 11/16/18 09:57:36 11/16/18 08:49:06 11/16/18 09:58:24 [facility] IntraOp Surgical Procedures Audit 11/16/18 12:41:26 Binder Cutter Hand: ALTIZEL Modifier: ALTIZEL <+> 1 Stop <+> 2 Stop <+> 3 Stop 11/16/18 10:51:43 Binder Cutter Hand: ALTIZEL Modifier: ALTIZEL 1 <*> Procedure Aortic Aneurysm Ascending Repair 11/16/18 10:17:14 Binder Cutter Hand: ALTIZEL Modifier: ALTIZEL <+> 3 Start 11/16/18 09:58:24 Binder Cutter Hand: ALTIZEL Modifier: ALTIZEL <+> 3 Procedure <+> 3 Primary Procedure <+> 3 Primary Surgeon <+> 3 Specialty <+> 3 Wound Class <+> 3 Anesthesia Type 11/16/18 09:57:36 Binder Cutter Hand: ALTIZEL Modifier: ALTIZEL 1 <*> Procedure Aortic Aneurysm Ascending Repair 1 <*> Additional Procedure Description (ASCENDING AORTIC ANEURYSM REPAIR, CABG, POSSIBLE AORTIC VALVE REPLACEMENT) [facility] IntraOp Temp Regulation Devices Entry 1 Entry 2 Temp Regulation Temperature Forced Air Warming Warm blankets Regulation Device device Temperature [id number] Regulation Device Serial/Unit Number Temperature Lower body Full body Regulation Site Temperature Device 43 DEG C Setting Temperature RADHA VALENCIA RN ALTIZER, LISA E, RN Regulation Device Applied by Temperature CATIA HUGGER TURNED ON Regulation Comment AFTER AORTIC CROSS CLAMP REMOVED Last Modified By: RADHA VALENCIA RN ALTIZER, LISA E, RN 11/16/18 08:53:25 11/16/18 08:53:25 [facility] Intra[facility] Time Out Entry 1 Procedure to [...] Modified By: RADHA VALENCIA RN 11/16/18 09:58:34 [facility] Intra[facility] Time Out Audit 11/16/18 09:58:34 Binder Cutter Hand: EARNESTINE Modifier: ALTIZEL 1 <*> Procedure to be Performed Aortic Aneurysm Ascending Repair, CABG w Aortic Valve Case Comments <None> Finalized By: JODI PITT Document Signatures Signed By: RADHA VALENCIA RN 11/16/18 12:41 JODI PITT 11/17/18 10:03 Unfinalized History Date/Time Username Reason for Unfinalizing Freetext Reason for Unfinalizing 11/17/18 09:59 [email or web address] Correct Billing Electronically signed by Parveen [facility] Conversion Appliance Sales Associate Cerner at 12/08/2022 12:09 PM CDT documented in this encounter Plan of Treatment Not on file documented as of this encounter Visit Diagnoses Not on filedocumented in this encounter
--- OUTSIDE RECORDS SUMMARY | 2025-05-13 13:07 | XMS_ITS | Encounter Summary ---
Author Organization [employer] ([place], [place], [place], [place]) Address [address] [place] [address] Care Team Providers Care Generation Mechanic Helper Name Role Phone Unavailable Primary Care Provider Unavailabl e Encounter Details Date Type Department Care Team (Late st Contact Info) Description 11/20/2018 Transcribed Document 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
--- OUTSIDE RECORDS SUMMARY | 2025-05-13 13:07 | XMS_ITS | Encounter Summary ---
Author Organization [employer] ([place], [place], [place], [place]) Address [address] [place] [address] Care Team Providers Care Marine Pilot Name Role Phone Unavailable Primary Care Provider Unavailabl e Encounter Details Date Type Department Care Team (Late st Contact Info) Description 12/01/2018 Transcribed Document [facility] [place] [address] [place] [address] ProviderErika MD [address] [place], [...] and arrangements, chart reviewed, received word from [facility] that bed is available for patient today, on their stroke unit. Patient to be transported via [facility], p/u set for 3pm. RN report to be called to [phone] and discharge summary to be faxed to [phone]. Pt, RN and family aware and in agreement with plan. ANGELA NAIR Social Worker - 12/01/2018 11:35 EDT Care Management Note Report : SUZANNA HAINES Social Worker - 11/30/18 15:30:18 Covering today for D/c planning, pt back on 3E room 330. Discussed w/ Carmen from [facility] who is still following pt. She has submitted pt info to MD for approval. Pt had EGD 11/29 which revealed duodenal ulcer w/ clot but no bleeding, no intervention needed, Off heparin gtt, watching pt's INR and H & H. Speech signed off today, pt is cleared for thins. Met w/ pt and family and informed them of [facility] situation. Also discussed outpt Cardiac Rehab. They prefer to go to [facility]. Phoned them and left msg, sent pt info to them. CM will cont to follow. ANGELA NAIR Sorority Supervisor - 11/26/18 11:20:05 Continue to follow for discharge needs and arrangements, chart reviewed, admission day 10, transfer from [facility], on room air, WBC=11.2, INR=1.1, PTT=55.8, on IV Heparin gtt due to DVT in left arm, MBS completed today now on regular cardiac diet with thin liquids, PT/OT following (not seen on 11/25/18) followed up with [facility] today regarding possible admission - plan is to submit for approval today after being seen by therapy. Awaiting ANGELA NAIR Sorority Supervisor - 11/26/18 11:24:04 Continue to follow for discharge needs and arrangements, chart reviewed, admission day 10, transfer from [facility], on room air, WBC=11.2, INR=1.1, PTT=55.8, on IV Heparin gtt due to DVT in left arm, MBS completed today now on regular cardiac diet with thin liquids, PT/OT following (not seen on 11/25/18) followed up with [facility] today regarding possible admission - plan is to submit for approval today after being seen by therapy, for their MD approval. Once accepting MD in place, bed in place and patient is medically stable will be able to transfer due to patient not requiring a insurance prior auth. CM will continue to follow. ODALYS FAULKNER, Rn-Ultrasound Sonographer - 11/24/18 13:22:19 11/24/18 Andra from [facility] called to let me know they started a precert on this pt. CF ODALYS FAULKNER Rn-Ultrasound Sonographer - 11/22/18 13:56:32 11/22/18 Pt has had a cva. Spoke to his Connie and son Sumeet at the bedside. Pt is lfacid on the left side. Discussed the need for STR and they decided on [facility]. Sent pt info via [employer] to [facility]. CF Documentation Status Complete : Yes ANGELA NAIR Social Worker - 12/01/2018 11:24 EDT Discharge Planning Details Home Caregiver Name/Relationship : Connie King [phone] spouse Discharge Placement Needs : Rehabilitation unit/facility [...] Yes Patient/Family Notified : Connie King Spouse [phone] ANGELA NAIR Social Worker - 12/01/2018 11:35 EDT Final Discharge Disposition Note-CM Discharge To Care Management : IRF -Inpatient Rehabilitation Facility-62 Name of Receiving Facility/Provider-CM : [facility] Stroke unit ANGELA NAIR Social Worker - 12/01/2018 11:35 EDT documented in this encounter Plan of Treatment Not on file documented as of this encounter Visit Diagnoses Not on filedocumented in this encounter
--- OUTSIDE RECORDS SUMMARY | 2025-05-13 13:07 | XMS_ITS | Encounter Summary ---
Author Organization [employer] ([place], [place], [place], [place]) Address [address] [place] [address] Care Team Providers Care Supervisor Drying And Softening Name Role Phone Unavailable Primary Care Provider Unavailabl e Encounter Details Date Type Department Care Team (Late st Contact Info) Description 11/24/2018 Transcribed Document [facility] [place] [address] [place] [address] ProviderErika MD [address] [place] [address] Social History Tobacco Use Types [...] On: 11/24/2018 13:21 EDT by ODALYS FAULKNER Rn-Ultrasound Applications SpecialistLapel Padder Blindstitch Note Care Management Note : 11/24/18 Andra from [facility] called to let me know they started a precert on this pt. CF Care Management Note Report : ODALYS FAULKNER Rn-Ultrasound Applications Specialist - 11/22/18 13:56:32 11/22/18 Pt has had a cva. Spoke to his Connie and son Sumeet at the bedside. Pt is lfacid on the left side. Discussed the need for STR and they decided on [facility]. Sent pt info via [employer] to [facility]. CF Documentation Status Complete : Yes ODALYS FAULKNER Rn-Ultrasound Applications Specialist - 11/24/2018 13:21 EDT Electronically signed by Parveen [facility] Conversion Law Examiner Cerjuju at 12/08/2022 12:31 PM CDT documented in this encounter Plan of Treatment Not on file documented as of this encounter Visit Diagnoses Not on filedocumented in this encounter
--- OUTSIDE RECORDS SUMMARY | 2025-05-13 13:07 | XMS_ITS | Encounter Summary ---
Author Organization [employer] ([place], [place], [place], [place]) Address [address] [place] [address] Care Team Providers Care Dragsaw Operator Name Role Phone Unavailable Primary Care Provider Unavailabl e Encounter Details Date Type Department Care Team (Late st Contact Info) Description 11/24/2018 Transcribed Document [facility] [place] Family Medicine [address] [place] [address] ProviderErika MD [address] [place], [...] EDT Electronically signed by Christina Saini Conversion Hospitalist Nocturnist Physician Felipe at 12/08/2022 12:12 PM CDT documented in this encounter Plan of Treatment Not on file documented as of this encounter Visit Diagnoses Not on filedocumented in this encounter
--- OUTSIDE RECORDS SUMMARY | 2025-05-13 13:07 | XMS_ITS | Clinical Summary ---
Author Organization [employer] ([place], [place], [place], [place]) Address [address] [place] [id number] Care Team Providers Care Supervisor Files Name Role Phone Unavailable Primary Care Provider [...]
--- OUTSIDE RECORDS SUMMARY | 2025-05-13 13:07 | XMS_ITS | Encounter Summary ---
Author Organization [employer] ([place], [place], [place], [place]) Address [address] [place] [address] Care Team Providers Care Technical Service Engineer Name Role Phone Unavailable Primary Care Provider Unavailabl e Encounter Details Date Type Department Care Team (Late st Contact Info) Description 11/18/2018 Transcribed Document [facility] Family Medicine [address] [place] [address] ProviderErika MD [address] [place] [address] Social History Tobacco Use Types [...] Initial Visit : Yes Referred by : Hair Mixer initiated Referral Reason Comment : Post-op visit Ministry Provided to : Patient, Family/Significant other Baptist Preference : Lutheran MARCOS GASCA P - 11/18/2018 10:51 EDT [...] other supported, Relationship strengths identified Spiritual and Baptist : Prayer shared, Spiritual/Baptist support provided MARCOS GASCA P - 11/18/2018 10:51 EDT documented in this encounter Plan of Treatment Not on file documented as of this encounter Visit Diagnoses Not on filedocumented in this encounter
--- OUTSIDE RECORDS SUMMARY | 2025-05-13 13:07 | XMS_ITS | Encounter Summary ---
Author Organization [employer] ([place], [place], [place], [place]) Address [address] [place] [address] Care Team Providers Care Predictive Maintenance Specialist Name Role Phone Unavailable Primary Care Provider Unavailabl e Encounter Details Date Type Department Care Team (Late st Contact Info) Description 12/01/2018 Transcribed Document [facility] [place] Family Medicine [address] [place] [address] ProviderErika MD [address] [place] [address] Social History Tobacco Use Types [...] contain harmful chemicals. FOR MORE INFORMATION ??? [place] [employer]: www.lung.org ??? [place] [employer]: www.cancer.org This information is not intended to replace advice given to you by your health care provider. Make sure you discuss any questions you have with your health care provider. Document Released: 09/17/2005 Document Revised: 12/01/2016 Document Reviewed: 01/30/2014 Optify Interactive Patient Education ? 2017 Optify Inc. How to Take Your Blood Pressure [...] 07/23/2009 Document Revised: 08/31/2015 Document Reviewed: 10/05/2014 ElseKSE Interactive Patient Education ? 2017 ElseKSE Inc. How to Take a Pulse Your [...] 02/14/2004 Document Revised: 02/27/2017 Document Reviewed: 01/13/2017 Optify Interactive Patient Education ? 2017 [employer]ify Inc. Coronary Artery Bypass Grafting, Care After [...] 02/27/2006 Document Revised: 08/31/2015 Document Reviewed: 01/17/2014 ElseKSE Interactive Patient Education ? 2017 Optify Inc. Bleeding Precautions When on Anticoagulant Therapy [...] can be dangerous for you. ??? Many wnsc-vzy-lxirnaj medicines for pain, colds, or stomach problems [...] provider. Document Released: 07/21/2016 Document Reviewed: 07/21/2016 Optify Interactive Patient Education ? 2017 Optify Inc. Atrial Fibrillation Introduction Atrial fibrillation is [...] Follow these instructions at home: ??? Take oorg-nmj-ksxbomg and prescription medicines only as told by [...] 02/10/2014 Elsevier Interactive Patient Education ? 2017 ElseKSE Inc. documented in this encounter Plan of Treatment Not on file documented as of this encounter Visit Diagnoses Not on filedocumented in this encounter
--- OUTSIDE RECORDS SUMMARY | 2025-05-13 13:07 | XMS_ITS | Encounter Summary ---
Author Organization [facility] Address [address] [place] [address] Care Team Providers Care Director Of Dance Name Role Phone Sanjuana Valdez APRN Primary Care Provider [phone] Clifford Horner MD Primary Care Provider [phone] Encounter Details Date Type Department Care Team (Late st Contact Info) Description 06/02/2022 [facility] Community [facility] [address] [place] [address] Joanna Zamora, DPM [address] [place], [place] [id number] Contracture of left ankle (Primary Dx); Contracture [...] foot documented in this encounter Care Teams Director Of Dance Relationship Specialty Start Date End Date Sanjuana Valdez APRN [address] [place] [address] PCP - General 01/04/21 07/13/24 Clifford Horner MD [address] [place] [address] PCP - General 07/14/24 documented as of this encounter
--- OUTSIDE RECORDS SUMMARY | 2025-05-13 13:07 | XMS_ITS | Clinical Summary ---
Author Organization [facility] Address [address] [place] [phone] Phone Care Team Providers Care Sheet Metal Helper Name Role Phone Svitlana Manley MD Primary [...] [place] PART A [place] B Care Teams Sheet Metal Helper Relationship Specialty Start Date End Date Svitlana Manley MD [address] [place] [phone] PCP - General Family Medicine 04/10/16
--- OUTSIDE RECORDS SUMMARY | 2025-05-13 13:07 | XMS_ITS | Encounter Summary ---
Author Organization [employer] ([place], [place], [place], [place]) Address [address] [place] [address] Care Team Providers Care Down Filler Name Role Phone Unavailable Primary Care Provider Unavailabl e Encounter Details Date Type Department Care Team (Late st Contact Info) Description 11/18/2018 Transcribed Document [facility] Family Medicine [address] [place] [address] ProviderErika MD [address] [place] [address] Social History Tobacco Use Types [...] on Osmolite 1.5 @ 50m/hr + 1 [id number] daily advancing toward goal of 60ml/hr + 1 [id number] daily. No RESTAURANT ASSISTANT consult noted, discussed if any concern [...] midline incision; chest tube 370ml GI: LBM SUPERVISOR ASPHALT PAVING (admit 11/16), hypoactive BS, +NGT Nutrition Support: Osmolite 1.5 @ 60ml/hr + 1 [id number] daily, water flush 10ml q1hr HT: 185cm (6'1) ADMIT WT: 79kg/174# Current Wt: 81.6kg (11/17), 82.4kg (11/18) BMI: 23 IBW: 79kg/100% EST NEEDS: 0018-8234 kcal (25-30kcal/kg), 95g pro (1.2g/kg) Bev Olvera [...] TF: Osmolite 1.5 @ 60ml/hr + 1 [id number] daily (provides 2040 kcal, 98g pro). FW per MD. goal: provide nutrition, meet est needs 2. As medically able, recommend swallow eval if appropriate; rec (cardiac) w/consistencies per RESTAURANT ASSISTANT. RD will monitor need for supplement. goal: [...]
--- OUTSIDE RECORDS SUMMARY | 2025-05-13 13:07 | XMS_ITS | Encounter Summary ---
Author Organization [employer] ([place], [place], [place], [place]) Address [address] [place] [address] Care Team Providers Care Joint Creaser Name Role Phone Unavailable Primary Care Provider Unavailabl e Encounter Details Date Type Department Care Team (Late st Contact Info) Description 12/01/2018 Transcribed Document [facility] [place] [address] [place] [address] ProviderErika MD [address] [place], [place] [id number] Social History Tobacco Use Types Packs/Day Years [...] 1940 Associated Diagnoses: CAD (coronary artery disease), [place] coronary artery; Thrombocytopenia; Coronary artery disease; HTN [...] complaints. 11/30/18: No complaints, transferred back to [facility] yesterday 12/01/18: Up to chair today, hopefully to [facility] today Review of Systems Constitutional: Weakness. [...] Musculoskeletal: left arm swelling. Integumentary: Warm, Dry, Olar, incision is C/D/I. Neurologic: Alert, left sided [...] time of discharge- has sent information to [facility] -Transfer to [facility] 11/24/18 -POD#8 -Awaiting [facility] -Awaiting response from [facility] 11/25/18 -POD#9 -left upper extremity venous doppler - doppler this am positive for LUE DVT - will start coumadin and heparin bridge -awaiting [facility] 11/26/18 -POD#10 -Heparin drip and coumadin for LUE DVT -Left arm swelling improved today -INR 1.1 today, INR goal 2-3 -Possibly transfer to [facility] this weekend 11/27/18: -POD#11 -Left arm swelling continues to improve -Continues on Coumadin and heparin bridge -INR: 1.4 (1.1 yesterday) goal: 2 to 3 -[facility] soon,? Tomorrow 11/28/18: -POD#12 -BP in 70s-80s this AM -He had a dark black stool and has had a couple of fluid boluses -Heparin was D/C'd and his INR is 2.0 this AM (on coumadin 5mg qd) -Hct is down to 23.6 -GI med has been consulted and he is to undergo EGD -Also some blood has been set up. -Transferred to [facility] 11/29/18: -POD#13 -Upper endoscopy showed duodenal ulceration [...] D/C due to GI bleed. -Transfer [facility] 11/30/18 POD # 14 EGD yesterday - duodenal ulceration with clot, no active bleeding and no intervention performed INR trending down, off coumadin and heparin Speech signed off yesterday - speech and cognition back to baseline Watch INR and [facility] upon discharge 12/01/18 POD # 15 Bed available at [facility] today\.brTH stable, INR 1.4 EF 55-60% per echo 11/16/18 DVT Prophylaxis: SCDs Diagnosis CAD (coronary artery disease), [place] coronary artery - Admitting, Medical. Thrombocytopenia - [...] - Discharge, Medical. Electronically signed by Parveen [facility] Conversion Supervisor Cereal Cerner at 12/08/2022 12:20 PM CDT documented in this encounter Plan of Treatment Not on file documented as of this encounter Visit Diagnoses Not on filedocumented in this encounter
--- OUTSIDE RECORDS SUMMARY | 2025-05-13 13:07 | XMS_ITS | Encounter Summary ---
Author Organization [employer] ([place], [place], [place], [place]) Address [address] [place] [address] Care Team Providers Care Commercial Baker Helper Name Role Phone Unavailable Primary Care Provider Unavailabl e Encounter Details Date Type Department Care Team (Late st Contact Info) Description 11/28/2018 Transcribed Document [facility] Family Medicine [address] [place] [address] ProviderErika MD [address] [place], [place] [id number] Social History Tobacco Use Types Packs/Day Years Used Date Smoking Tobacco: Never Assessed Sex and Gender Information Value Date Recorded Sex Assigned at Not on file Legal Sex Male 5:03 PM CDT Gender Identity Not on file Sexual Orientation Not on file documented as of this encounter Miscellaneous Notes * Cerner Conversion Note - Historical ProviderMD - 11/28/2018 2:00 AM CDT Injection Moulding Machine Operator Details Entered On: 11/28/2018 2:45 EDT Performed [...]
--- OUTSIDE RECORDS SUMMARY | 2025-05-13 13:07 | XMS_ITS | Encounter Summary ---
Author Organization [employer] ([place], [place], [place], [place]) Address [address] [place] [address] Care Team Providers Care Campus Recruiting Coordinator Name Role Phone Unavailable Primary Care Provider Unavailabl e Encounter Details Date Type Department Care Team (Late st Contact Info) Description 11/25/2018 Transcribed Document [facility] Family Medicine [address] [place] [address] ProviderErika MD [address] [place] [address] Social History Tobacco Use Types [...]
--- OUTSIDE RECORDS SUMMARY | 2025-05-13 13:07 | XMS_ITS | Encounter Summary ---
Author Organization [employer] ([place], [place], [place], [place]) Address [address] [place] [address] Care Team Providers Care Legal Archivist Name Role Phone Unavailable Primary Care Provider Unavailabl e Encounter Details Date Type Department Care Team (Late st Contact Info) Description 11/20/2018 Transcribed Document [facility] Pulm & Critical Care Medicine [address] [facility] [address] [place] [address] Eloy Rodrigues MD [address] [facility] [address] [place], [place] [id number] Social History Tobacco Use Types Packs/Day Years [...] 16:32:27 Trans: 11/20/2018 22:52:43 Processed: 11/22/2018 09:57:30 [place] CC1: Eloy Rodrigues M.D. documented in this encounter Plan of Treatment Not on file documented as of this encounter Visit Diagnoses Not on filedocumented in this encounter
--- OUTSIDE RECORDS SUMMARY | 2025-05-13 13:07 | XMS_ITS | Encounter Summary ---
Author Organization [facility] ([place], [place], [place], [place]) Address [address] [place] [address] Care Team Providers Care Improvement Director Name Role Phone Unavailable Primary Care Provider Unavailabl e Encounter Details Date Type Department Care Team (Late st Contact Info) Description 11/16/[address] [facility] Family Medicine [address] [place] [address] ProviderErika MD [address] [place] [address] Social History Tobacco Use Types [...] form. Electronically signed by Christina Saini Conversion Senior Field Service Engineer Cerner at 12/12/2022 8:26 AM CDT documented in this encounter Plan of Treatment Not on file documented as of this encounter Visit Diagnoses Not on filedocumented in this encounter
--- OUTSIDE RECORDS SUMMARY | 2025-05-13 13:07 | XMS_ITS | Encounter Summary ---
Author Organization [employer] ([place], [place], [place], [place]) Address [address] [place] [address] Care Team Providers Care Marketing Operations Analyst Name Role Phone Unavailable Primary Care Provider Unavailabl e Encounter Details Date Type Department Care Team (Late st Contact Info) Description 11/18/2018 Transcribed Document [facility] Family Medicine [address] [place] [address] ProviderErika MD [address] [place] [address] Social History Tobacco Use Types [...]
--- OUTSIDE RECORDS SUMMARY | 2025-05-13 13:07 | XMS_ITS | Encounter Summary ---
Author Organization [employer] ([place], [place], [place], [place]) Address [address] [place] [address] Care Team Providers Care Resource Coordinator Name Role Phone Unavailable Primary Care Provider Unavailabl e Encounter Details Date Type Department Care Team (Late st Contact Info) Description 12/01/2018 Transcribed Document [facility] [place] [address] [place] [address] ProviderErika MD [address] [place] [address] Social History Tobacco Use Types [...]
--- OUTSIDE RECORDS SUMMARY | 2025-05-13 13:07 | XMS_ITS | Encounter Summary ---
Author Organization [employer] ([place], [place], [place], [place]) Address [address] [place] [address] Care Team Providers Care Cooker Operator Name Role Phone Unavailable Primary Care Provider Unavailabl e Encounter Details Date Type Department Care Team (Late st Contact Info) Description 12/01/2018 Transcribed Document [facility] [place] [facility] [place] [address] ProviderErika MD [address] [place] [address] Social History Tobacco Use Types [...] Jose MD - 12/01/2018 1:32 PM CDT [address] [address] Patient Copy Patient Information: Name: DOTTIE VILLASENOR Current Date: 12/01/2018 13:32:25 : 1940 Patient Address: [address] [place] [phone] Patient Attending Physician: JULIO CESAR CARVALHO MD-CAT Primary Care Provider: DEMETRICE ARMIJO NP-[facility] Primary Care Provider Discharge Diagnosis: Acute blood loss anemia; Aortic insufficiency; Coronary artery disease; GI bleed; LUE DVT (deep venous thrombosis); Right MCA CVA (cerebral vascular accident); Thoracic ascending aortic aneurysm Weight on Admission: 174 lb, 5 oz Weight at Discharge: 159 lb Comment: Follow-up Instructions: With: Address: When: DEMETRICE ARMIJO [address] [place], [place] [id number] Within 1 week Comments: When you are discharged from [facility] please call to make a 1 week hospital follow-up appointment. With: Address: When: JULIO CESAR DEY [address] [place] [address] Business (1) 1:15 PM With: Address: When: JULIO CESAR CARVALHO [address] [place] [address] Business (1) Within 2 weeks With: Address: When: JOHN BOWEN [address] [place] [address] Business (1) Within 6 weeks Comments: Patient should call for a follow up appointment with [facility] Neurology. Discharge Instructions: Driving after Discharge: Do not drive, Other: No driving or operating heavy machinery until released by a physician. Community Services: Outpt Cardiac Rehab [facility] [phone] They will call pt w/ appt time. [...] 09/17/2005 Document Revised: 01/15/2017 Document Reviewed: 02/10/2014 Bl[employer] Interactive Patient Education ? 2017 [employer] Inc. CIGARETTE SMOKING: The facts are clear, cigarette smoking will shorten your life. Smoking can cause many illnesses along the way. As a healthcare provider, we recommend that you stop smoking. Assistance with quitting is available by contacting 5-378-VSDN-NOW. This is a free resource providing counseling, [...] Be sure to sign up for the [facility] patient portal, which gives you 16/03 access to your medical information ??? including these discharge instructions ??? using your computer, smartphone, or tablet. Just go to [employer] to get started. Questions? Call . [facility] would like to thank you for allowing us to assist you with your healthcare needs. HAMILTON Jarvis ROBERT H, (or passenger relations representative) have received the above patient education materials/instructions and have verbalized understanding: Patient Signature _ Date/Time Patient Retail Service Lead Merchandiser Signature (if needed) Date/Time Clinician/Hospital Retail Service Lead Merchandiser Signature (if needed) Date/Time documented in this encounter Plan of Treatment Not on file documented as of this encounter Visit Diagnoses Not on filedocumented in this encounter
--- OUTSIDE RECORDS SUMMARY | 2025-05-13 13:07 | XMS_ITS | Encounter Summary ---
Author Organization [employer] ([place], [place], [place], [place]) Address [address] [place] [address] Care Team Providers Care Inspector Aide Name Role Phone Unavailable Primary Care Provider Unavailabl e Encounter Details Date Type Department Care Team (Late st Contact Info) Description 11/25/2018 Transcribed Document [facility] Family Medicine [address] [place] [address] ProviderErika MD [address] [place], [place] [id number] Social History Tobacco Use Types Packs/Day Years [...] Push, Q4H, PRN Electronically signed by Parveen, [facility] Conversion Third Rigger Cerner at 12/08/2022 12:38 PM CDT documented in this encounter Plan of Treatment Not on file documented as of this encounter Visit Diagnoses Not on filedocumented in this encounter
--- OUTSIDE RECORDS SUMMARY | 2025-05-13 13:07 | XMS_ITS | Encounter Summary ---
Author Organization [employer] ([place], [place], [place], [place]) Address [address] [place] [address] Care Team Providers Care Motor Driver Name Role Phone Unavailable Primary Care Provider Unavailabl e Encounter Details Date Type Department Care Team (Late st Contact Info) Description 11/30/2018 Transcribed Document [facility] [place] Family Medicine [address] [place] [address] ProviderErika MD [address] [place] [address] Social History Tobacco Use Types [...] Bed scale Routine Weight Entry Format : Cecil Routine Weight, Pounds : 164 lb Routine Weight, Ounces : 1 oz Routine Weight Calculation : 74.57 kg Height Source : Measured Height Entry Format : Cecil Height, Feet : 6 ft Height, Inches [...]
--- OUTSIDE RECORDS SUMMARY | 2025-05-13 13:07 | XMS_ITS | Encounter Summary ---
Author Organization [employer] ([place], [place], [place], [place]) Address [address] [place] [address] Care Team Providers Care Technical Operations Specialist Name Role Phone Unavailable Primary Care Provider Unavailabl e Encounter Details Date Type Department Care Team (Late st Contact Info) Description 11/25/2018 Transcribed Document [facility] [place] [place] Medicine [address] [place] [address] ProviderErika MD [address] [place] [address] Social History Tobacco Use Types [...] On: 11/25/2018 12:20 EDT by THERESA CAZARES [facility] Clinical Interventions Heparin Per Weight-Based Protocol : Yes THERESA CAZARES [facility] - 11/25/2018 12:20 EDT Heparin Per [...] 11/25/2018 12:20 EDT Electronically signed by Parveen [facility] Conversion Epic Trainer Cerner at 12/08/2022 12:35 PM CDT documented in this encounter Plan of Treatment Not on file documented as of this encounter Visit Diagnoses Not on filedocumented in this encounter
--- OUTSIDE RECORDS SUMMARY | 2025-05-13 13:07 | XMS_ITS | Encounter Summary ---
Author Organization [facility] ([place], [place], [place], [place]) Address [address] [place] [address] Care Team Providers Care Housekeeper Child Care Name Role Phone Unavailable Primary Care Provider Unavailabl e Encounter Details Date Type Department Care Team (Late st Contact Info) Description 12/01/2018 Transcribed Document [facility] [place] [address] [place] [address] ProviderErika MD [address] [place] [address] Social History Tobacco Use Types [...]
--- OUTSIDE RECORDS SUMMARY | 2025-05-13 13:07 | XMS_ITS | Encounter Summary ---
Author Organization [employer] ([place], [place], [place], [place]) Address [address] [place] [address] Care Team Providers Care Rolling Chair Pusher Name Role Phone Unavailable Primary Care Provider Unavailabl e Encounter Details Date Type Department Care Team (Late st Contact Info) Description 11/28/2018 Transcribed Document [facility] [place] [address] [place] [address] ProviderErika MD [address] [place] [address] Social History Tobacco Use Types [...]
--- OUTSIDE RECORDS SUMMARY | 2025-05-13 13:07 | XMS_ITS | Referral Summary ---
Author Organization [employer] ([place], [place], [place], [place]) Address [address] [place] [address] Care Team Providers Care Substitute Bus Driver Name Role Phone Unavailable Primary Care [...]
--- OUTSIDE RECORDS SUMMARY | 2025-05-13 13:07 | XMS_ITS | Encounter Summary ---
Author Organization [employer] ([place], [place], [place], [place]) Address [address] [place] [address] Care Team Providers Care Shot Core Drill Operator Name Role Phone Unavailable Primary Care Provider Unavailabl e Encounter Details Date Type Department Care Team (Late st Contact Info) Description 11/24/[address] [facility] [place] [address] [place] [address] ProviderErika MD [address] [place] [address] Social History Tobacco Use [...] EDT Electronically signed by Christina Saini Conversion Aqueduct And Reservoir Keeper Cerner at 12/08/2022 12:32 PM CDT documented in this encounter Plan of Treatment Not on file documented as of this encounter Visit Diagnoses Not on filedocumented in this encounter
--- OUTSIDE RECORDS SUMMARY | 2025-05-13 13:07 | XMS_ITS | Encounter Summary ---
Author Organization [employer] ([place], [place], [place], [place]) Address [address] [place] [address] Care Team Providers Care Home Theater Experience Expert Name Role Phone Unavailable Primary Care Provider Unavailabl e Encounter Details Date Type Department Care Team (Late st Contact Info) Description 12/01/2018 Transcribed Document [facility] [place] Medicine [address] [place] [address] ProviderErika MD [address] [place] [address] Social History Tobacco Use Types [...]
--- OUTSIDE RECORDS SUMMARY | 2025-05-13 13:07 | XMS_ITS | Encounter Summary ---
Author Organization [employer] ([place], [place], [place], [place]) Address [address] [place] [address] Care Team Providers Care Weather Reporter Name Role Phone Unavailable Primary Care Provider Unavailabl e Encounter Details Date Type Department Care Team (Late st Contact Info) Description 11/18/2018 Transcribed Document [facility] [place] [address] [place] [address] ProviderErika MD [address] [place] [address] Social History Tobacco Use Types Packs/Day Years Used Date Smoking Tobacco: Never Assessed Sex and Gender Information Value Date Recorded Sex Assigned at Not on file Legal Sex Male 5:03 PM CDT Gender Identity Not on file Sexual Orientation Not on file documented as of this encounter Miscellaneous Notes * Cerner Conversion Note - Historical ProviderMD - 11/18/2018 2:00 AM CDT Crop Puller Details Entered On: 11/18/2018 4:41 EDT Performed [...]
--- OUTSIDE RECORDS SUMMARY | 2025-05-13 13:07 | XMS_ITS | Encounter Summary ---
Author Organization [employer] ([place], [place], [place], [place]) Address [address] [place] [address] Care Team Providers Care Base Filler Operator Name Role Phone Unavailable Primary Care Provider Unavailabl e Encounter Details Date Type Department Care Team (Late st Contact Info) Description 11/20/2018 Transcribed Document [facility] [place] [address] [place] [address] ProviderErika MD [address] [place] [address] Social History Tobacco Use Types Packs/Day Years Used Date Smoking Tobacco: Never Assessed Sex and Gender Information Value Date Recorded Sex Assigned at Not on file Legal Sex Male 5:03 PM CDT Gender Identity Not on file Sexual Orientation Not on file documented as of this encounter Miscellaneous Notes * Cerner Conversion Note - Erika ProviderMD - 11/20/2018 9:36 AM CDT SUPERVISOR NUCLEAR MEDICINE Note Entered On: 11/24/2018 13:28 EDT Performed On: 11/24/2018 13:19 EDT by MAMTA SOLO, SUPERVISOR NUCLEAR MEDICINE Dysphagia Exercise Technique Dysphagia Therapy/Treatment Type #1 [...] Technique PO Trial #1 Consistency Trialed : [place] Oral Symptoms : None observed Pharyngeal Signs [...] 13:19 EDT Swallow Plan/Goals Swallow LTG Grid SUPERVISOR NUCLEAR MEDICINE [place] Goal #1 SUPERVISOR NUCLEAR MEDICINE [place] Goal #2 Swallow LTG : Establish safe [...] Date Met : 11/22/2018 EDT MAMTA SOLO, [facility] - 11/24/2018 13:19 EDT MAMTA SOLO SUPERVISOR NUCLEAR MEDICINE - 11/24/2018 13:19 EDT MAMTA SOLO SUPERVISOR NUCLEAR MEDICINE - 11/24/2018 13:19 EDT MAMTA SOLO [facility] - 11/24/2018 13:19 EDT LTG Lang/Comm/Cog LTG SUPERVISOR NUCLEAR MEDICINE Detention Goal 1 [place] Goal 2 Goals : Improved spoken language expression at the time of discharge Improved auditory/spoken language comprehension at the time of discharge Status : Initial Initial MAMTA SOLO [facility] - 11/24/2018 13:19 EDT MAMTA SOLO SLP - 11/24/2018 13:19 EDT STG Lang_Comm_Cog Motor Speech STG Grid Goal #1 Activity : Improve intelligibility of speech Status : Initial MAMTA SOLO [facility] - 11/24/2018 13:19 EDT Auditory Comprehension Grid Goal #1 Goal #2 Activity : Follow directions, 3 step commands simple Comprehend paragraph complex MAMTA SOLO [facility] - 11/24/2018 13:19 EDT MAMTA SOLO [facility] - 11/24/2018 13:19 EDT Verbal Expression STG Grid Goal #1 Activity : Generate items in a category MAMTA SOLO [facility] - 11/24/2018 13:19 EDT Reading Comprehension STG Grid Goal #1 Activity : Visual perception deficits MAMTA SOLO [facility] - 11/24/2018 13:19 EDT Attention STG Grid Goal #1 Activity : Other: Probe Status : Goal met Date Met : 11/24/2018 TGT MAMTA SOLO [facility] - 11/24/2018 13:19 EDT Memory STG Grid Goal #1 Goal #2 Goal #3 Activity : Other: Probe Improve short term functional delayed Improve short term working memory Status : Goal met Initial Initial Date Met : 11/24/2018 TGT MAMTA SOLO [facility] - 11/24/2018 13:19 EDT MAMTA SOLO [facility] - 11/24/2018 13:19 EDT MAMTA SOLO [facility] - 11/24/2018 13:19 EDT Problem Solving STG [...] SOLO SLP - 11/24/2018 13:19 EDT Subjective/Assessment/Plan SUPERVISOR NUCLEAR MEDICINE Patient Concern : Pt was awake and lying in bed. Agreeable to tx. SUPERVISOR NUCLEAR MEDICINE Therapy/Treatment Asmt Cmnt : Pt seen for speech and dysphagia tx. Great participation in tx. Requires continuous cues for accurate completion of timing exercises. No overt pharyngeal patterns with nectar liquids. Further cogntive probe completed. Pt presents with a moderate cognitive deficits characterized by impairments in memory, orientation, and problem solving. POC updated. SUPERVISOR NUCLEAR MEDICINE Plan : Continue per POC. Repeat swallow study Thursday. MAMTA SOLO SLP - 11/24/2018 13:19 EDT Education Barriers To Learning : Cognitive deficit Individuals Taught : Patient Readiness to Learn : Cooperative Readiness to Learn : Explanation MAMTA SOLO SLP - 11/24/2018 13:19 EDT SUPERVISOR NUCLEAR MEDICINE Education Assessment Grid 1 Evaluation Results : Verbalizes understanding MAMTA SOLO SLP - 11/24/2018 13:19 EDT SUPERVISOR NUCLEAR MEDICINE Education Assessment Grid 2 Treatment Plan : Verbalizes understanding MAMTA SOLO SLP - 11/24/2018 13:[address] [place] SUPERVISOR NUCLEAR MEDICINE Charges Speech Therapy : 1 Treatment-Swallowing : 1 MAMTA SOLO SLP - 11/24/2018 13:19 EDT Anticipated Discharge Needs, SUPERVISOR NUCLEAR MEDICINE Anticipated Discharge to OT : Rehab, high intensity Recommend Continued Therapy at Discharge : Yes MAMTA SOLO SLP - 11/24/2018 13:19 EDT documented in this encounter Plan of Treatment Not on file documented as of this encounter Visit Diagnoses Not on filedocumented in this encounter
--- OUTSIDE RECORDS SUMMARY | 2025-05-13 13:07 | XMS_ITS | Encounter Summary ---
Author Organization [employer] ([place], [place], [place], [place]) Address [address] [place] [address] Care Team Providers Care Boarding Room Fixer Name Role Phone Unavailable Primary Care Provider Unavailabl e Encounter Details Date Type Department Care Team (Late st Contact Info) Description 11/25/2018 Transcribed Document [facility] [place] [address] [place] [address] ProviderErika MD [address] [place] [...] at goal rate. Did have BM yesterday. WOODENWARE ASSEMBLER okayed pt for po diet this am- [...] (11/24) BMI: 23 IBW: 79kg/100% EST NEEDS: [id number] kcal (25-30kcal/kg), 95g pro (1.2g/kg) DAVION GREEN [...]
--- OUTSIDE RECORDS SUMMARY | 2025-05-13 13:07 | XMS_ITS | Encounter Summary ---
Author Organization [employer] ([place], [place], [place], [place]) Address [address] [place] [address] Care Team Providers Care Reagent Tender Name Role Phone Unavailable Primary Care Provider Unavailabl e Encounter Details Date Type Department Care Team (Late st Contact Info) Description 11/18/2018 Transcribed Document [facility] Cardiology [address] [place] [address] Lc Armendariz MD [address] [facility] [address] [place] [address] Social History Tobacco Use Types [...] mg, Oral, At Bedtime saliva substitutes: 1 [place], Buccal, Q2H, PRN: Other (See Comment) sodium [...] of motion, Normal strength. Integumentary: Warm, Dry, [place]. Neurologic: Alert, Oriented. Psychiatric: Cooperative, Appropriate mood & affect. Results Review NOV 18 03:37 138 106 19 / H 200 3.8 27 0.90 \ NOV 18 03:37 \ L 10.2 / H 17.7 L 103 / L 30.3 \ Cardiac Markers (Current Encounter/Past 24 Hours) No Cardiac Marker Results Found (Past 24 Hours) Radiology Results (Last 48 hours) [id number] -- 11/16/2018 06:45 CR Chest 1 Vw Portable (11/16/2018 12:55) Result: PORTABLE CHEST HISTORY: Pneumothorax.COMPARISON: 1 day prior.FINDINGS: The heart is stable in size. The patient is status post mediansternotomy. The endotracheal tube is in the mid thoracic trachea. Anasogastric tube extends below the diaphragm. Left-sided Ferguson-Ganzcatheter tip is in the left main pulmonary [...] day.FINDINGS: The heart is normal in size. Ferguson-Jovanna catheter tips in theleft pulmonary artery. There [...]
--- OUTSIDE RECORDS SUMMARY | 2025-05-13 13:07 | XMS_ITS | Encounter Summary ---
Author Organization [employer] ([place], [place], [place], [place]) Address [address] [place] [address] Care Team Providers Care Jacket Changer Name Role Phone Unavailable Primary Care Provider Unavailabl e Encounter Details Date Type Department Care Team (Late st Contact Info) Description 11/18/2018 Transcribed Document [facility] [place] [address] [place] [address] ProviderErika MD [address] [place], [place] [id number] Social History Tobacco Use Types Packs/Day Years [...] 1940 Associated Diagnoses: CAD (coronary artery disease), [place] coronary artery; Thrombocytopenia; Coronary artery disease; HTN [...] S1, S2, No edema. Integumentary: Warm, Dry, [place], incision is C/D/I. Neurologic: Alert, he did [...] Prophylaxis: SCDs Diagnosis CAD (coronary artery disease), [place] coronary artery - Admitting, Medical. Thrombocytopenia - Working, Medical. Coronary artery disease - Discharge, Medical. HTN (hypertension) - Pre-Op Diagnosis, Medical. Hypothyroidism - Pre-Op Diagnosis, Medical. Aortic insufficiency - Admitting, Medical. Aortic insufficiency - Discharge, Medical. RLS (restless legs syndrome) - Pre-Op Diagnosis, Medical. Thoracic ascending aortic aneurysm - Admitting, Medical. Thoracic ascending aortic aneurysm - Discharge, Medical. Electronically signed by Parveen, [facility] Conversion Theology Professor Cerner at 12/08/2022 12:19 PM CDT documented in this encounter Plan of Treatment Not on file documented as of this encounter Visit Diagnoses Not on filedocumented in this encounter
--- OUTSIDE RECORDS SUMMARY | 2025-05-13 13:07 | XMS_ITS | Encounter Summary ---
Author Organization [employer] ([place], [place], [place], [place]) Address [address] [place] [address] Care Team Providers Care Assisted Living Home Director Name Role Phone Unavailable Primary Care Provider Unavailabl e Encounter Details Date Type Department Care Team (Late st Contact Info) Description 11/16/2018 Transcribed Document [facility] [place] [address] [place] [address] ProviderErika MD [address] [place] [address] Social History Tobacco Use Types [...]
--- OUTSIDE RECORDS SUMMARY | 2025-05-13 13:07 | XMS_ITS | Encounter Summary ---
Author Organization [employer] ([place], [place], [place], [place]) Address [address] [place] [address] Care Team Providers Care Adolescent Coordinator Name Role Phone Unavailable Primary Care Provider Unavailabl e Encounter Details Date Type Department Care Team (Late st Contact Info) Description 11/25/2018 Transcribed Document [facility] [place] [address] [place] [address] ProviderErika MD [address] [place], [place] [id number] Social History Tobacco Use Types Packs/Day Years [...] 1940 Associated Diagnoses: CAD (coronary artery disease), [place] coronary artery; Thrombocytopenia; Coronary artery disease; HTN [...] left upper extremity swelling. Integumentary: Warm, Dry, [place], incision is C/D/I. Neurologic: Alert, left sided [...] of discharge- CM has sent information to [facility] -Transfer to [facility] 11/24/18 -POD#8 -Awaiting transfer to [facility] -Awaiting response from [facility] 11/25/18 -left upper extremity venous doppler - doppler this am positive for LUE DVT - will start coumadin and heparin bridge -awaiting [facility] EF 55-60% per echo 11/16/18 DVT Prophylaxis: SCDs Diagnosis CAD (coronary artery disease), [place] coronary artery - Admitting, Medical. Thrombocytopenia - [...]
--- OUTSIDE RECORDS SUMMARY | 2025-05-13 13:07 | XMS_ITS | Encounter Summary ---
Author Organization [employer] ([place], [place], [place], [place]) Address [address] [place] [address] Care Team Providers Care Solar Energy Sales Specialist Name Role Phone Unavailable Primary Care Provider Unavailabl e Encounter Details Date Type Department Care Team (Late st Contact Info) Description 12/01/2018 Transcribed Document [facility] [place] [address] [place] [address] ProviderErika MD [address] [place] [address] Social History Tobacco Use Types [...] MD - 12/01/2018 1:54 PM CDT [facility] [place] [address] DOTTIE VILLASENOR :1940 Visit Time:11/16/2018 Your Visit Summary Your Care Team Admitting Physician - JULIO CESAR CARVALHO MD-CAT Attending Physician - JULIO CESAR CARVALHO MD-YADIRA Primary Care Physician - DEMETRICE ARMIJO NP-FAM Referring Physician - DEMETRICE ARMIJO NP-FAM Your Diagnosis Acute blood loss anemia Aortic insufficiency, Aortic insufficiency CAD (coronary artery disease), [place] coronary artery, Coronary artery disease GI [...] Your Care Team [facility]-Stroke Unit RN report #[phone] [place] Summary #[phone] You may shower. Make sure your back [...] IF you have a fever greater than [id number], call the surgeon. DO NOT drive for [...] Where: [address] [place] [address]- Business (1) Follow Up with JULIO CESAR CARVALHO When 12/15/2018 12:15 PM EDT Where: [address] [place] [address] Business (1) Follow Up with DEMETRICE ARMIJO When Within 1 week Comments When you are discharged from [facility] please call to make a 1 week hospital follow-up appointment. Where: [address] [place] [address]- Follow Up with JOHN BOWEN When Within 6 weeks Comments Patient should call for a follow up appointment with [facility] Neurology. Where: [address] [place] [address]- Business (1) Medications What How [...] contain harmful chemicals. FOR MORE INFORMATION ??? [employer]: www.lung.org ??? [employer] Society: www.cancer.org This information is not intended to replace advice given to you by your health care provider. Make sure you discuss any questions you have with your health care provider. Document Released: 09/17/2005 Document Revised: 12/01/2016 Document Reviewed: 01/30/2014 [employer] Interactive Patient Education ?? 2017 [employer] How to Take Your Blood Pressure [...] 07/23/2009 Document Revised: 08/31/2015 Document Reviewed: 10/05/2014 [employer] Interactive Patient Education ?? 2017 [employer] How to Take a Pulse Your [...] 02/14/2004 Document Revised: 02/27/2017 Document Reviewed: 01/13/2017 [employer] Interactive Patient Education ?? 2017 [employer] Coronary Artery Bypass Grafting, Care After [...] 02/27/2006 Document Revised: 08/31/2015 Document Reviewed: 01/17/2014 [employer] Interactive Patient Education ?? 2017 [employer] Bleeding Precautions When on Anticoagulant Therapy [...] can be dangerous for you. ??? Many hnxg-njk-kxhadov medicines for pain, colds, or stomach problems [...] provider. Document Released: 07/21/2016 Document Reviewed: 07/21/2016 [employer] Interactive Patient Education ?? 2017 [employer]. Atrial Fibrillation Introduction Atrial fibrillation is a [...] Follow these instructions at home: ??? Take fljq-huc-kiakpin and prescription medicines only as told by [...] 09/17/2005 Document Revised: 01/15/2017 Document Reviewed: 02/10/2014 [employer] Interactive Patient Education ?? 2017 [employer]. misoprostol (reji ramos) [facility] What is the most important [...] may report side effects to FDA at 0-543-RWB-5149. What other drugs will affect misoprostol? Other drugs may interact with misoprostol, including prescription and aqwo-mdi-olabrul medicines, vitamins, and herbal products. Tell each [...] to ensure that the information provided by [employer]. ('[employer]') is accurate, up-to-date, and complete, but no guarantee is made to that effect. Drug information contained herein may be time sensitive. [employer] information has been compiled for use by healthcare practitioners and consumers in the [place] and therefore [employer] does not warrant that uses outside of the [place] are appropriate, unless specifically indicated otherwise. [employer] drug information does not endorse drugs, diagnose patients or recommend therapy. [employer] drug information is an informational resource designed [...] effective or appropriate for any given patient. [employer] does not assume any responsibility for any aspect of healthcare administered with the aid of information [employer] provides. The information contained herein is not intended to cover all possible uses, directions, precautions, warnings, drug interactions, allergic reactions, or adverse effects. If you have questions about the drugs you are taking, check with your doctor, nurse or pharmacist. Copyright 3576-4318 [employer]. Version: 8.01. Revision Date: 03/02/2014.sucralfate (oral) (angelica [...] may report side effects to FDA at 4-148-VKA-5163. What other drugs will affect sucralfate? Sucralfate can make it harder for your body to absorb other medications you take by mouth. Avoid taking any other medications within 2 hours before or after you take sucralfate. Other drugs may interact with sucralfate, including prescription and wlfc-gey-pitbyxk medicines, vitamins, and herbal products. Tell each [...] to ensure that the information provided by [employer] ('[employer]') is accurate, up-to-date, and complete, but no guarantee is made to that effect. Drug information contained herein may be time sensitive. [employer] information has been compiled for use by healthcare practitioners and consumers in the [place] and therefore [employer] does not warrant that uses outside of the [place] are appropriate, unless specifically indicated otherwise. [employer] drug information does not endorse drugs, diagnose patients or recommend therapy. [employer] drug information is an informational resource designed [...] effective or appropriate for any given patient. [employer] does not assume any responsibility for any aspect of healthcare administered with the aid of information [employer] provides. The information contained herein is not intended to cover all possible uses, directions, precautions, warnings, drug interactions, allergic reactions, or adverse effects. If you have questions about the drugs you are taking, check with your doctor, nurse or pharmacist. Copyright 3845-7262 [employer]. Version: 8.01. Revision Date: 01/03/2013.sucralfate (oral) (angelica [...] may report side effects to FDA at 4-681-KTB-7002. What other drugs will affect sucralfate? Sucralfate can make it harder for your body to absorb other medications you take by mouth. Avoid taking any other medications within 2 hours before or after you take sucralfate. Other drugs may interact with sucralfate, including prescription and keas-bmo-yksxtvn medicines, vitamins, and herbal products. Tell each [...] to ensure that the information provided by [employer]. ('[employer]') is accurate, up-to-date, and complete, but no guarantee is made to that effect. Drug information contained herein may be time sensitive. [employer] information has been compiled for use by healthcare practitioners and consumers in the [place] and therefore [employer] does not warrant that uses outside of the [place] are appropriate, unless specifically indicated otherwise. [employer] drug information does not endorse drugs, diagnose patients or recommend therapy. [employer] drug information is an informational resource designed [...] effective or appropriate for any given patient. [employer] does not assume any responsibility for any aspect of healthcare administered with the aid of information [facility] provides. The information contained herein is not intended to cover all possible uses, directions, precautions, warnings, drug interactions, allergic reactions, or adverse effects. If you have questions about the drugs you are taking, check with your doctor, nurse or pharmacist. Copyright 4156-1380 [employer]. Version: 8.01. Revision Date: 01/03/2013. Emergency Awareness [...] Assistance with quitting is available by contacting 1-441-FULQDotfluxNOW. This is a free resource providing counseling, [...]
--- OUTSIDE RECORDS SUMMARY | 2025-05-13 13:07 | XMS_ITS | Encounter Summary ---
Author Organization [employer] ([place], [place], [place], [place]) Address [address] [place] [address] Care Team Providers Care Sales Service Executive Name Role Phone Unavailable Primary Care Provider Unavailabl e Encounter Details Date Type Department Care Team (Late st Contact Info) Description 11/28/2018 Transcribed Document [facility] Family Medicine [address] [place] [address] ProviderErika MD [address] [place], [...]
--- OUTSIDE RECORDS SUMMARY | 2025-05-13 13:07 | XMS_ITS | Encounter Summary ---
Author Organization [employer] ([place], [place], [place], [place]) Address [address] [place] [address] Care Team Providers Care Cobol Mainframe Developer Name Role Phone Unavailable Primary Care Provider Unavailabl e Encounter Details Date Type Department Care Team (Late st Contact Info) Description 11/16/2018 Transcribed Document [facility] Family Medicine [address] [place] [address] ProviderErika MD [address] [place] [address] Social History Tobacco Use Types [...] : 11/17/2018 00:00 Atherosclerotic heart disease of [place] coronary artery without angina pectoris 11/17/2018 00:00 Essential (primary) hypertension 11/17/2018 00:00 Hypothyroidism, unspecified 11/17/2018 00:00 Nonrheumatic aortic (valve) insufficiency 11/17/2018 00:00 Restless legs syndrome 11/17/2018 00:00 Thoracic aortic aneurysm, without rupture 11/17/2018 00:00 Thrombocytopenia, unspecified 11/16/2018 00:00 Atherosclerotic heart disease of [place] coronary artery without angina pectoris 11/16/2018 [...] ROGER LEWIS, PT - 11/18/2018 16:07 EDT Utility Worker Roller Shop Goals Mobility/Bed Mobility LTG PT Grid Goal [...] ROGER LEWIS, PT - 11/18/2018 16:07 EDT [place] PT Charges PT Eval Moderate Complexity : 1 ROGER LEWIS, PT - 11/18/2018 16:07 EDT Electronically signed by Parveen, Christina Conversion Trimming Department Blocker Cerner at 12/08/2022 12:19 PM CDT documented in this encounter Plan of Treatment Not on file documented as of this encounter Visit Diagnoses Not on filedocumented in this encounter
--- OUTSIDE RECORDS SUMMARY | 2025-05-13 13:07 | XMS_ITS | Encounter Summary ---
Author Organization [employer] ([place], [place], [place], [place]) Address [address] [place] [address] Care Team Providers Care Resource Analyst Name Role Phone Unavailable Primary Care Provider Unavailabl e Encounter Details Date Type Department Care Team (Late st Contact Info) Description 11/23/2018 Transcribed Document [facility] [place] [address] [place] [address] ProviderErika MD [address] [place] [address] Social History Tobacco Use Types [...] EDT Electronically signed by Christina Saini Conversion Cement Production Plant Operator Cerner at 12/08/2022 12:25 PM CDT documented in this encounter Plan of Treatment Not on file documented as of this encounter Visit Diagnoses Not on filedocumented in this encounter
--- OUTSIDE RECORDS SUMMARY | 2025-05-13 13:07 | XMS_ITS | Encounter Summary ---
Author Organization [employer] ([place], [place], [place], [place]) Address [address] [place] [address] Care Team Providers Care Rim Roller Operator Name Role Phone Unavailable Primary Care Provider Unavailabl e Encounter Details Date Type Department Care Team (Late st Contact Info) Description 12/01/2018 Transcribed Document [facility] [place] Family Medicine [address] [place] [address] ProviderErika MD [address] [place] [address] Social History Tobacco Use Types [...] On: 12/01/2018 13:36 EDT by NAIN JARRETT oracle security consultant Documentation Discharge Date/Time : 12/01/2018 15:13 EDT NAIN JARRETT RN - 12/01/2018 16:34 EDT Patient Disposition, General : Discharge Discharge To : Rehabilitation unit/facility Name of Receiving Facility/Provider : [facility] Mode Of Departure, General Discharge [...]
--- OUTSIDE RECORDS SUMMARY | 2025-05-13 13:07 | XMS_ITS | Encounter Summary ---
Author Organization [employer] ([place], [place], [place], [place]) Address [address] [place] [address] Care Team Providers Care Security Operations Manager Name Role Phone Unavailable Primary Care Provider Unavailabl e Encounter Details Date Type Department Care Team (Late st Contact Info) Description 11/23/2018 Transcribed Document [facility] [place] Family Medicine [address] [place] [address] ProviderErika MD [address] [place], [place] [id number] Social History Tobacco Use Types Packs/Day Years Used Date Smoking Tobacco: Never Assessed Sex and Gender Information Value Date Recorded Sex Assigned at Not on file Legal Sex Male 5:03 PM CDT Gender Identity Not on file Sexual Orientation Not on file documented as of this encounter Miscellaneous Notes * Cerner Conversion Note - Erika Jose MD - 11/23/2018 3:05 PM CDT Patient: DOTTIE VILLASENOR Age: 78 [...] Tab, Oral, At Bedtime saliva substitutes, 1 [place], Buccal, Q2H, PRN Senokot, 17.2 mg= 2 Tab, Oral, BID Zofran, 4 mg= 2 mL, IV Push, Q4H, PRN documented in this encounter Plan of Treatment Not on file documented as of this encounter Visit Diagnoses Not on filedocumented in this encounter
--- OUTSIDE RECORDS SUMMARY | 2025-05-13 13:07 | XMS_ITS | Encounter Summary ---
Author Organization [employer] ([place], [place], [place], [place]) Address [address] [place] [address] Care Team Providers Care Manager Advertising Name Role Phone Unavailable Primary Care Provider Unavailabl e Encounter Details Date Type Department Care Team (Late st Contact Info) Description 11/16/2018 Transcribed Document [facility] [place] Family Medicine [address] [place] [address] ProviderErika MD [address] [place] [address] Social History Tobacco Use Types [...] Ambulatory Legal Guardian : Spouse Support Person/Patient Clothing Cutter : Yes Support Person/Pt Rep Name : Connie- Sumeet - son Support Person/Pt Rep Contact Information : [phone] home [phone] - cell Want Family/Rep/Phys Notified of Admit : No Emergency Contact #1 : Abydesi FROY NEIL RN - 11/16/2018 13:37 EDT Emergency Contact #1 (H) FROY NEIL RN - 11/16/2018 13:43 EDT Emergency Contact #1 Relationship : NEIL, FROY Tao RN - 11/16/2018 13:37 EDT Emergency Contact #2 : Sheridan King Emergency Contact #2 (C) Emergency Contact #2 Relationship : daughter RASHAAD FROY aTo RN - 11/16/2018 13:43 EDT Information Obtained From : Patient, Medical Record Primary Language : Tamazight Preferred Communication Mode : Verbal Communication Barrier [...] Scale Risk Level : 25-45 Medium Risk Carbon Fall Interventions : Adequate lighting, Assistive devices [...] Source : Measured Height Entry Format : [place] Height, Feet : 6 ft(Converted to: 183 cm, 72 Inch) Height, Inches : 1 Inch(Converted to: 0 ft 1 Inch, 2.54 cm) Clinical Height : 185.42 cm Weight Source : Standing scale Weight Entry Format : [place] Clinical Dosing Weight : 79.23 kg Weight, Pounds : 174 lb Weight, Ounces : 5 oz Body Surface Area (BSA) : 2.03 m2 Body Mass Index : 23 kg/m2 [place] Body Weight : 79 kg FROY NEIL [...]
--- OUTSIDE RECORDS SUMMARY | 2025-05-13 13:07 | XMS_ITS | Encounter Summary ---
Author Organization [employer] ([place], [place], [place], [place]) Address [address] [place] [address] Care Team Providers Care Rn Pool Name Role Phone Unavailable Primary Care Provider Unavailabl e Encounter Details Date Type Department Care Team (Late st Contact Info) Description 11/16/2018 Transcribed Document [facility] [place] Family Medicine [address] [place] [address] ProviderErika MD [address] [place] [address] Social History Tobacco Use Types [...] On: 11/16/2018 12:27 EDT by [facility]att [facility] Phone Call for Consults Consult Phone Call/Page Attempt : First call Lorin [facility]att [facility] - 11/16/2018 13:34 EDT documented in this encounter Plan of Treatment Not on file documented as of this encounter Visit Diagnoses Not on filedocumented in this encounter
--- OUTSIDE RECORDS SUMMARY | 2025-05-13 13:07 | XMS_ITS | Encounter Summary ---
Author Organization [employer] ([place], [place], [place], [place]) Address [address] [place] [address] Care Team Providers Care Head Esthetician Name Role Phone Unavailable Primary Care Provider Unavailabl e Encounter Details Date Type Department Care Team (Late st Contact Info) Description 11/24/2018 Transcribed Document [facility] [place] Family Medicine [address] [place] [address] ProviderErika MD [address] [place] [address] Social History Tobacco Use Types [...] Bed scale Routine Weight Entry Format : [place] Routine Weight, Pounds : 180 lb Routine Weight, Ounces : 8 oz Routine Weight Calculation : 82.05 kg Height Source : Measured Height Entry Format : [place] Height, Feet : 6 ft Height, Inches [...]
--- OUTSIDE RECORDS SUMMARY | 2025-05-13 13:07 | XMS_ITS | Clinical Summary ---
Author Organization [facility] Address [address] [place] [address] Care Team Providers Care Red Hat Linux Engineer Name Role Phone Clifford Horner MD Primary Care Provider [phone] Allergies No known active allergies Medications dutasteride [...] r (1 - 1-dose 75+ series) 2014 [id number] Vaccine (3 - Moderna risk series) 02/11/2021 [...] complete this topic Insurance MEDICARE Care Teams Red Hat Linux Engineer Relationship Specialty Start Date End Date Clifford Horner MD [address] [facility] [address] [place] [address] PCP - General 07/14/24
--- OUTSIDE RECORDS SUMMARY | 2025-05-13 13:07 | XMS_ITS | Encounter Summary ---
Author Organization [employer] ([place], [place], [place], [place]) Address [address] [place] [address] Care Team Providers Care Flight Manager Name Role Phone Unavailable Primary Care Provider Unavailabl e Encounter Details Date Type Department Care Team (Late st Contact Info) Description 11/25/2018 Transcribed Document [facility] [place] [address] [place] [address] ProviderErika MD [address] [place] [address] Social History Tobacco Use Types [...] EDT Electronically signed by Christina Saini Conversion Telecommunications Professional Cerner at 12/08/2022 12:37 PM CDT documented in this encounter Plan of Treatment Not on file documented as of this encounter Visit Diagnoses Not on filedocumented in this encounter
--- OUTSIDE RECORDS SUMMARY | 2025-05-13 13:07 | XMS_ITS | Encounter Summary ---
Author Organization [employer] ([place], [place], [place], [place]) Address [address] [place] [address] Care Team Providers Care Executive Director Of Nursing Name Role Phone Unavailable Primary Care Provider Unavailabl e Encounter Details Date Type Department Care Team (Late st Contact Info) Description 12/01/2018 Transcribed Document [facility] [place] Family Medicine [address] [place] [address] ProviderErika MD [address] [place] [address] Social History Tobacco Use Types Packs/Day Years Used Date Smoking Tobacco: Never Assessed Sex and Gender Information Value Date Recorded Sex Assigned at Not on file Legal Sex Male 5:03 PM CDT Gender Identity Not on file Sexual Orientation Not on file documented as of this encounter Miscellaneous Notes * Cerner Conversion Note - Historical ProviderMD - 12/01/2018 2:00 AM CDT Spa Receptionist Details Entered On: 12/01/2018 0:23 EDT Performed [...]
--- OUTSIDE RECORDS SUMMARY | 2025-05-13 13:07 | XMS_ITS | Encounter Summary ---
Author Organization [employer] ([place], [place], [place], [place]) Address [address] [place] [address] Care Team Providers Care Tripper Name Role Phone Unavailable Primary Care Provider Unavailabl e Encounter Details Date Type Department Care Team (Late st Contact Info) Description 11/18/2018 Transcribed Document [facility] [place] Family Medicine [address] [place] [address] ProviderErika MD [address] [place] [address] Social History Tobacco Use Types [...] Source : Measured Height Entry Format : [place] Height, Feet : 6 ft Height, Inches [...]
--- OUTSIDE RECORDS SUMMARY | 2025-05-13 13:07 | XMS_ITS | Encounter Summary ---
Author Organization [employer] ([place], [place], [place], [place]) Address [address] [place] [address] Care Team Providers Care Air Value Tester Name Role Phone Unavailable Primary Care Provider Unavailabl e Encounter Details Date Type Department Care Team (Late st Contact Info) Description 11/16/2018 Transcribed Document [facility] [place] Medicine [address] [place] [address] ProviderErika MD [address] [place] [address] Social History Tobacco Use [...] ProviderMD - 11/16/2018 7:30 AM CDT [facility] Main OR Preop Summary Primary Physician: JULIO CESAR CARVALHO MD-CAT Finalized Date/Time: 11/16/18 07:12:04 Pt. Name: DOTTIE VILLASENOR D.O.B./Sex: 1940 Male Med Rec #: [id number] Physician: JULIO CESAR CARVALHO MD-CAT Financial #: [id number] Pt. Type: I Room/Bed: ASA/8 Admit/Disch: 11/16/18 06:45:00 - Institution: [facility] PreOp Case Times Entry 1 In [...]
--- OUTSIDE RECORDS SUMMARY | 2025-05-13 13:07 | XMS_ITS | Encounter Summary ---
Author Organization [employer] ([place], [place], [place], [place]) Address [address] [place] [address] Care Team Providers Care Animal Stunner Name Role Phone Unavailable Primary Care Provider Unavailabl e Encounter Details Date Type Department Care Team (Late st Contact Info) Description 11/23/2018 Transcribed Document [facility] [place] Family Medicine [address] [place] [address] ProviderErika MD [address] [place], [place] [id number] Social History Tobacco Use Types Packs/Day Years [...] 1940 Associated Diagnoses: CAD (coronary artery disease), [place] coronary artery; Thrombocytopenia; Coronary artery disease; HTN [...] S1, S2, No edema. Integumentary: Warm, Dry, [place], incision is C/D/I. Neurologic: Alert, left sided [...] Prophylaxis: SCDs Diagnosis CAD (coronary artery disease), [place] coronary artery - Admitting, Medical. Thrombocytopenia - [...] Medical. Electronically signed by Michele Saini Conversion Ultrasound Applications Specialist Cerner at 12/08/2022 12:36 PM CDT documented in this encounter Plan of Treatment Not on file documented as of this encounter Visit Diagnoses Not on filedocumented in this encounter
--- OUTSIDE RECORDS SUMMARY | 2025-05-13 13:07 | XMS_ITS | Encounter Summary ---
Author Organization [employer] ([place], [place], [place], [place]) Address [address] [place] [address] Care Team Providers Care Business Banking Sales Assistant Name Role Phone Unavailable Primary Care Provider Unavailabl e Encounter Details Date Type Department Care Team (Late st Contact Info) Description 11/23/2018 Transcribed Document [facility] [place] [address] [place] [address] ProviderErika MD [address] [place] [address] Social History Tobacco Use Types [...]
--- OUTSIDE RECORDS SUMMARY | 2025-05-13 13:07 | XMS_ITS | Encounter Summary ---
Author Organization [employer] ([place], [place], [place], [place]) Address [address] [place] [address] Care Team Providers Care Ironworker Apprentice Shop Name Role Phone Unavailable Primary Care Provider Unavailabl e Encounter Details Date Type Department Care Team (Late st Contact Info) Description 11/24/2018 Transcribed Document [facility] [place] [address] [place] [address] ProviderErika MD [address] [place], [place] [id number] Social History Tobacco Use Types Packs/Day Years [...] 1940 Associated Diagnoses: CAD (coronary artery disease), [place] coronary artery; Thrombocytopenia; Coronary artery disease; HTN [...] S1, S2, No edema. Integumentary: Warm, Dry, [place], incision is C/D/I. Neurologic: Alert, left sided [...] information to [facility] -Transfer to [facility] 11/24/18 -POD#8 -Awaiting transfer to [facility] -Awaiting response from [facility] EF 55-60% per echo 11/16/18 DVT Prophylaxis: SCDs Diagnosis CAD (coronary artery disease), [place] coronary artery - Admitting, Medical. Thrombocytopenia - [...] - Discharge, Medical. Electronically signed by Interface, [facility] Conversion Autocad Electrical Designer Cerner at 12/08/2022 12:10 PM CDT documented in this encounter Plan of Treatment Not on file documented as of this encounter Visit Diagnoses Not on filedocumented in this encounter
--- OUTSIDE RECORDS SUMMARY | 2025-05-13 13:07 | XMS_ITS | Encounter Summary ---
Author Organization [employer] ([place], [place], [place], [place]) Address [address] [place] [address] Care Team Providers Care Sand Worker Name Role Phone Unavailable Primary Care Provider Unavailabl e Encounter Details Date Type Department Care Team (Late st Contact Info) Description 11/30/2018 Transcribed Document [facility] [place] Family Medicine [address] [place] [address] ProviderErika MD [address] [place] [address] Social History Tobacco Use Types Packs/Day Years Used Date Smoking Tobacco: Never Assessed Sex and Gender Information Value Date Recorded Sex Assigned at Not on file Legal Sex Male 5:03 PM CDT Gender Identity Not on file Sexual Orientation Not on file documented as of this encounter Miscellaneous Notes * Cerner Conversion Note - Historical ProviderMD - 11/30/2018 2:00 AM CDT Night Time Babysitter Details Entered On: 11/30/2018 0:59 EDT Performed [...]
--- OUTSIDE RECORDS SUMMARY | 2025-05-13 13:07 | XMS_ITS | Encounter Summary ---
Author Organization [employer] ([place], [place], [place], [place]) Address [address] [place] [address] Care Team Providers Care Director School Of Nursing Name Role Phone Unavailable Primary Care Provider Unavailabl e Encounter Details Date Type Department Care Team (Late st Contact Info) Description 11/16/2018 Transcribed Document [facility] [place] [facility] [place] [address] [place] [address] ProviderErika MD [address] [place] [address] Social History Tobacco Use Types [...] anterior descending). SURGEON: Porfirio Gaxiola IV, MD EMISSIONS TECHNICIAN: Saud Oliver (AMANDA) ANESTHESIA: General orotracheal. CLINICAL [...] IV, M.D. Electronically signed by Parveen [facility] Conversion Pilot Steam Yacht Cerner at 12/08/2022 12:25 PM CDT documented in this encounter Plan of Treatment Not on file documented as of this encounter Visit Diagnoses Not on filedocumented in this encounter
--- OUTSIDE RECORDS SUMMARY | 2025-05-13 13:07 | XMS_ITS | Encounter Summary ---
Author Organization [employer] ([place], [place], [place], [place]) Address [address] [place] [address] Care Team Providers Care Quality Assurance Inspector Name Role Phone Unavailable Primary Care Provider Unavailabl e Encounter Details Date Type Department Care Team (Late st Contact Info) Description 11/24/2018 Transcribed Document [facility] [place] [address] [place] [address] ProviderErika MD [address] [place] [address] Social History Tobacco Use Types [...]
--- OUTSIDE RECORDS SUMMARY | 2025-05-13 13:07 | XMS_ITS | Encounter Summary ---
Author Organization [employer] ([place], [place], [place], [place]) Address [address] [place] [address] Care Team Providers Care Pushcart Peddler Name Role Phone Unavailable Primary Care Provider Unavailabl e Encounter Details Date Type Department Care Team (Late st Contact Info) Description 11/23/2018 Transcribed Document [facility] [place] [address] [place] [address] ProviderErika MD [address] [place], [...] EDT Electronically signed by Christina Saini Conversion Movement Education Specialist Cerner at 12/08/2022 12:29 PM CDT documented in this encounter Plan of Treatment Not on file documented as of this encounter Visit Diagnoses Not on filedocumented in this encounter
--- OUTSIDE RECORDS SUMMARY | 2025-05-13 13:07 | XMS_ITS | Encounter Summary ---
Author Organization [employer] ([place], [place], [place], [place]) Address [address] [place] [address] Care Team Providers Care Forestry Patrolman Name Role Phone Unavailable Primary Care Provider Unavailabl e Encounter Details Date Type Department Care Team (Late st Contact Info) Description 11/24/2018 Transcribed Document [facility] [place] [address] [place] [address] ProviderErika MD [address] [place] [address] Social History Tobacco Use Types Packs/Day Years Used Date Smoking Tobacco: Never Assessed Sex and Gender Information Value Date Recorded Sex Assigned at Not on file Legal Sex Male 5:03 PM CDT Gender Identity Not on file Sexual Orientation Not on file documented as of this encounter Miscellaneous Notes * Cerner Conversion Note - Historical ProviderMD - 11/24/2018 2:00 AM CDT Director Of Research Center Details Entered On: 11/24/2018 3:36 EDT Performed [...]
--- OUTSIDE RECORDS SUMMARY | 2025-05-13 13:08 | XMS_ITS | Encounter Summary ---
Author Organization [employer] ([place], [place], [place], [place]) Address [address] [place] [address] Care Team Providers Care Band Bias Machine Operator Name Role Phone Unavailable Primary Care Provider Unavailabl e Encounter Details Date Type Department Care Team (Late st Contact Info) Description 11/15/2018 Transcribed Document [facility] [place] Family Medicine [address] [place] [address] ProviderErika MD [address] [place] [address] Social History Tobacco Use Types [...] Source : Measured Height Entry Format : [place] Height, Feet : 6 ft(Converted to: 183 cm, 72 Inch) Height, Inches : 1 Inch(Converted to: 0 ft 1 Inch, 2.54 cm) Clinical Height : 185.42 cm Weight Source : Standing scale Weight Entry Format : [place] Clinical Dosing Weight : 79.23 kg Weight, Pounds : 174 lb Weight, Ounces : 5 oz Body Surface Area (BSA) : 2.03 m2 Body Mass Index : 23 kg/m2 [place] Body Weight : 79 kg ANGELA KEY [...] Ambulatory Legal Guardian : Spouse Support Person/Patient Shearing Machine Operator : Yes Support Person/Pt Rep Name : Connie- Sumeet - son Support Person/Pt Rep Contact Information : [phone] home [phone] - cell Want Family/Rep/Phys Notified of Admit : No Emergency Contact #1 : Connie Emergency Contact #1 Emergency Contact #1 Relationship : Emergency Contact #2 : Sumeet Emergency Contact #2 Emergency Contact #2 Relationship : son Information Obtained From : Patient, Medical Record Primary Language : Frisian Preferred Communication Mode : Verbal Communication Barrier [...] ANGELA KEY RN - 11/15/2018 13:52 EDT documented in this encounter Plan of Treatment Not on file documented as of this encounter Visit Diagnoses Not on filedocumented in this encounter
--- OUTSIDE RECORDS SUMMARY | 2025-05-13 13:08 | XMS_ITS | Encounter Summary ---
Author Organization [employer] ([place], [place], [place], [place]) Address [address] [place] [address] Care Team Providers Care Auto Body Straightener Name Role Phone Unavailable Primary Care Provider Unavailabl e Encounter Details Date Type Department Care Team (Late st Contact Info) Description 11/05/2018 Transcribed Document [facility] [place] Family Medicine [address] [place] [address] ProviderErika MD [address] [place] [address] Social History Tobacco Use Types [...]
--- OUTSIDE RECORDS SUMMARY | 2025-05-13 13:08 | XMS_ITS | Encounter Summary ---
Author Organization [employer] ([place], [place], [place], [place]) Address [address] [place] [address] Care Team Providers Care Fine Wire Drawer Name Role Phone Unavailable Primary Care Provider Unavailabl e Encounter Details Date Type Department Care Team (Late st Contact Info) Description 11/28/2018 Transcribed Document [facility] [place] Family Medicine [address] [place] [address] ProviderErika MD [address] [place] [address] Social History Tobacco Use Types [...]
--- OUTSIDE RECORDS SUMMARY | 2025-05-13 13:08 | XMS_ITS | Encounter Summary ---
Author Organization [employer] ([place], [place], [place], [place]) Address [address] [place] [address] Care Team Providers Care Interior Design Faculty Member Name Role Phone Unavailable Primary Care Provider Unavailabl e Encounter Details Date Type Department Care Team (Late st Contact Info) Description 11/16/2018 Transcribed Document [facility] [place] Family Medicine [address] [place] [address] ProviderErika MD [address] [place] [address] Social History Tobacco Use Types [...] On: 11/16/2018 12:27 EDT by Lorin Pratt, [facility] Phone Call for Consults Consult Phone Call/Page Attempt : Other: Valve: no call Lorin Pratt [facility] - 11/16/2018 13:34 EDT documented in this encounter Plan of Treatment Not on file documented as of this encounter Visit Diagnoses Not on filedocumented in this encounter
--- OUTSIDE RECORDS SUMMARY | 2025-05-13 13:08 | XMS_ITS | Encounter Summary ---
Author Organization [employer] ([place], [place], [place], [place]) Address [address] [place] [address] Care Team Providers Care Legal Records Manager Name Role Phone Unavailable Primary Care Provider Unavailabl e Encounter Details Date Type Department Care Team (Late st Contact Info) Description 11/20/2018 Transcribed Document [facility] [place] Family Medicine [address] [place] [address] ProviderErika MD [address] [place], [place] [id number] Social History Tobacco Use Types Packs/Day Years [...] Bedtime, Routine HEENT saliva substitutes - 1 [place], Buccal, Liquid, Q2H, PRN for Other (See [...] Radiology results Radiology Results (Last 48 hours) [id number] -- 11/16/2018 06:45 CR Chest 1 Vw [...] Shortness of breathCOMPARISON: 1 day priorFINDINGS: A [place]ov[place] catheter tip terminates in the SVC. The [place]-Ganzcatheter has been retracted. The cardiac silhouette is [...]
--- OUTSIDE RECORDS SUMMARY | 2025-05-13 13:08 | XMS_ITS | Encounter Summary ---
Author Organization [employer] ([place], [place], [place], [place]) Address [address] [place] [address] Care Team Providers Care Break Off Worker Name Role Phone Unavailable Primary Care Provider Unavailabl e Encounter Details Date Type Department Care Team (Late st Contact Info) Description 11/27/2018 Transcribed Document [facility] [place] Family Medicine [address] [place] [address] ProviderErika MD [address] [place], [place] [id number] Social History Tobacco Use Types Packs/Day Years [...] 1940 Associated Diagnoses: CAD (coronary artery disease), [place] coronary artery; Thrombocytopenia; Coronary artery disease; HTN [...] swelling - improved today. Integumentary: Warm, Dry, [place], incision is C/D/I. Neurologic: Alert, Oriented, left [...] (Current Encounter/Past 24 Hours) PT 14.8 Second(s) IN 11/27/2018 07:36 PTT 55.8 Second(s) IN 11/26/2018 11:12 INR 1.4 IN 11/27/2018 07:36 . Impression and Plan Plan: [...] time of discharge- has sent information to [facility] -Transfer to [facility] 11/24/18 -POD#8 -Awaiting transfer to [facility] -Awaiting response from [facility] 11/25/18 -left upper extremity venous doppler - doppler this am positive for LUE DVT - will start coumadin and heparin bridge -awaiting [facility] 11/26/18 -Heparin drip and coumadin for LUE DVT Left arm swelling improved today INR 1.1 today, INR goal 2-3 Possibly transfer to [facility] this weekend 11/27/18: Left arm swelling continues to improve Continues on Coumadin and heparin bridge INR: 1.4 (1.1 yesterday) goal: 2 to 3 [facility] soon,? Tomorrow EF 55-60% per echo 11/16/18 DVT Prophylaxis: SCDs Diagnosis CAD (coronary artery disease), [place] coronary artery - Admitting, Medical. Thrombocytopenia - [...]
--- OUTSIDE RECORDS SUMMARY | 2025-05-13 13:08 | XMS_ITS | Encounter Summary ---
Author Organization [employer] ([place], [place], [place], [place]) Address [address] [place] [address] Care Team Providers Care Surveillance Officer Name Role Phone Unavailable Primary Care Provider Unavailabl e Encounter Details Date Type Department Care Team (Late st Contact Info) Description 11/16/2018 Transcribed Document [facility] [place] Family Medicine [address] [place] [address] ProviderErika MD [address], [place] [id number] Social History Tobacco Use Types Packs/Day Years [...] All Problems Prostate stricture / SNOMED CT 93397876 / Confirmed Restless legs syndrome / SNOMED CT 98750145 / Confirmed Nocturia / SNOMED CT 567759318 / Confirmed Cancer of skin of face / SNOMED CT 9740605352 / Confirmed Frequent urination / SNOMED CT 868638003 / Confirmed Hypothyroidism / SNOMED CT 14205032 / Confirmed HTN - Hypertension / SNOMED CT 3241460403 / Confirmed Disorder of prostate ( enlarged) / SNOMED CT 47099312 / Confirmed CAD (coronary artery disease) / SNOMED CT 18393751 / Confirmed At risk for sleep apnea / IMO 76985212 / Confirmed Arthritis / SNOMED CT 1178291 / Confirmed Aortic valve insufficiency / SNOMED CT 824497510 / Confirmed Aneurysm, 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 [...] EDT Height Source Measured Height Entry Format Barnes Height/Length, LATVIAN (ft) 6 ft Height/Length LATVIAN 1 Inch CLINICALHEIGHT 185.42 cm [place] Body Weight 79 kg Weight Source Standing scale Weight Entry Format Barnes Weight Russian lb 174 lb Weight Russian oz 5 oz CLINICALWEIGHT 79.23 kg Body [...] of motion, Normal strength. Integumentary: Warm, Dry, [place]. Neurologic: Alert, Oriented. Psychiatric: Cooperative, Appropriate mood [...] % 32.4 % Lymph # 2.32 x10(3)/uL [place] % 9.5 % HI [place] # 0.68 K/uL Eos % 1.1 % [...] Color Yellow Urine Appearance Clear Urine Specific Gamaliel 1.016 Urine pH Dipstick 6.5 Urine Leukocyte [...]
--- OUTSIDE RECORDS SUMMARY | 2025-05-13 13:08 | XMS_ITS | Encounter Summary ---
Author Organization [employer] ([place], [place], [place], [place]) Address [address] [place] [address] Care Team Providers Care Fish Pitcher Name Role Phone Unavailable Primary Care Provider Unavailabl e Encounter Details Date Type Department Care Team (Late st Contact Info) Description 11/27/2018 Transcribed Document [facility] [place] [address] [place] [address] ProviderErika MD [address] [place] [address] Social History Tobacco Use Types [...] Electronically signed by Christina Saini Conversion Operations Management Professionals Felipe at 12/08/2022 12:24 PM CDT documented in this encounter Plan of Treatment Not on file documented as of this encounter Visit Diagnoses Not on filedocumented in this encounter
--- OUTSIDE RECORDS SUMMARY | 2025-05-13 13:08 | XMS_ITS | Encounter Summary ---
Author Organization [employer] ([place], [place], [place], [place]) Address [address] [place] [address] Care Team Providers Care Parasitologist Name Role Phone Unavailable Primary Care Provider Unavailabl e Encounter Details Date Type Department Care Team (Late st Contact Info) Description 11/05/2018 Transcribed Document [facility] Cardiology [address] [place] [address] Lc Armendariz MD [address] [facility] [address] [place] [address] Social History Tobacco Use Types [...] 1940 Associated Diagnoses: None Author: LC ARMENDARIZ MD-[facility] Basic Information PCP: [facility]; Porfirio [...] All Problems Prostate stricture / SNOMED CT 17827923 / Confirmed HTN - Hypertension / SNOMED CT 2689142659 / Confirmed Hypothyroidism / SNOMED CT 81348875 / Confirmed Aneurysm / SNOMED CT 7687628817 / Confirmed Disorder of prostate / SNOMED CT 47959966 / Confirmed Thyroid disease / SNOMED CT 196180480 / Confirmed Restless legs syndrome / SNOMED CT 69464678 / Confirmed Cancer of skin of face / SNOMED CT 0914156258 / Confirmed At risk for sleep apnea / IMO 06696982 / Confirmed Resolved: Bladder stone / SNOMED CT 718308490 Histories No education data available. Social & Psychosocial Habits Alcohol 04/16/2017 Alcohol Use History, Social Habits No Alcohol Use in Last Twelve Months No Substance Abuse 04/16/2017 Recreational Drug Use History No Recreational Drug Use Last 12 Months No Tobacco 04/16/2017 Smoking Status Never smoker Past Medical History: Active HTN - Hypertension (8722246832) Hypothyroidism (20624064) Family History: Entire family history is negative. [...] of motion, Normal strength. Integumentary: Warm, Dry, [place]. Neurologic: Alert, Oriented. Psychiatric: Cooperative. Review / [...]
--- OUTSIDE RECORDS SUMMARY | 2025-05-13 13:08 | XMS_ITS | Encounter Summary ---
Author Organization [employer] ([place], [place], [place], [place]) Address [address] [place] [address] Care Team Providers Care Physician Chief Of Pathology Name Role Phone Unavailable Primary Care Provider Unavailabl e Encounter Details Date Type Department Care Team (Late st Contact Info) Description 11/27/2018 Transcribed Document [facility] [place] Family Medicine [address] [place] [address] ProviderErika MD [address] [place] [address] Social History Tobacco Use Types [...]
--- OUTSIDE RECORDS SUMMARY | 2025-05-13 13:08 | XMS_ITS | Encounter Summary ---
Author Organization [employer] ([place], [place], [place], [place]) Address [address] [place] [address] Care Team Providers Care Telemarketing Manager Name Role Phone Unavailable Primary Care Provider Unavailabl e Encounter Details Date Type Department Care Team (Late st Contact Info) Description 11/05/2018 Transcribed Document [facility] [place] Family Medicine [address] [place] [address] ProviderErika MD [address] [place] [address] Social History Tobacco Use Types [...] you are awake and alert. ??? Take ceco-oku-ayfsypf and prescription medicines only as told by [...] 05/31/2014 Document Revised: 01/12/2017 Document Reviewed: 11/29/2016 [employer] Interactive Patient Education ? 2017 [employer] Pulmonary Medicine Radial Site Care Introduction [...] 01/11/2014 Elsevier Interactive Patient Education ? 2017 [employer] Electronically signed by Christina Saini Conversion Manager Process Improvement Felipe at 12/08/2022 12:35 PM CDT documented in this encounter Plan of Treatment Not on file documented as of this encounter Visit Diagnoses Not on filedocumented in this encounter
--- OUTSIDE RECORDS SUMMARY | 2025-05-13 13:08 | XMS_ITS | Encounter Summary ---
Author Organization [employer] ([place], [place], [place], [place]) Address [address] [place] [address] Care Team Providers Care Tank Setter Name Role Phone Unavailable Primary Care Provider Unavailabl e Encounter Details Date Type Department Care Team (Late st Contact Info) Description 11/28/2018 Transcribed Document [facility] [place] [address] [place] [address] ProviderErika MD [address] [place] [address] Social History Tobacco Use Types [...]
--- OUTSIDE RECORDS SUMMARY | 2025-05-13 13:08 | XMS_ITS | Encounter Summary ---
Author Organization [employer] ([place], [place], [place], [place]) Address [address] [place] [address] Care Team Providers Care Circulation Tender Name Role Phone Unavailable Primary Care Provider Unavailabl e Encounter Details Date Type Department Care Team (Late st Contact Info) Description 11/28/2018 Transcribed Document [facility] [place] [address] [place] [address] ProviderErika MD [address] [place] [address] Social History Tobacco Use Types [...] Jacob Coy MD Electronically signed by Parveen [facility] Conversion Application Support Analyst Cerner at 12/08/2022 12:31 PM CDT documented in this encounter Plan of Treatment Not on file documented as of this encounter Visit Diagnoses Not on filedocumented in this encounter
--- OUTSIDE RECORDS SUMMARY | 2025-05-13 13:08 | XMS_ITS | Encounter Summary ---
Author Organization [employer] ([place], [place], [place], [place]) Address [address] [place] [address] Care Team Providers Care Children'S Court Magistrate Name Role Phone Unavailable Primary Care Provider Unavailabl e Encounter Details Date Type Department Care Team (Late st Contact Info) Description 11/26/2018 Transcribed Document [facility] [place] [address] [place] [address] ProviderErika MD [address] [place] [address] Social History Tobacco Use Types [...] (not seen on 11/25/18) followed up with [facility] today regarding possible admission - [...] Care Management Note Report : LUCIE, ODALYS, Rn-Finishing Inspector - 11/24/18 13:22:19 11/24/18 Andra from [facility] called to let me know they started a precert on this pt. CF ODALYS FAULKNER, Rn-Finishing Inspector - 11/22/18 13:56:32 11/22/18 Pt has had a cva. Spoke to his Connie and son Sumeet at the bedside. Pt is lfacid on the left side. Discussed the need for STR and they decided on [facility]. Sent pt info via [employer] to [facility]. CF Documentation Status Complete : Yes ANGELA NAIR, Chemical Recovery Operator - 11/26/2018 11:16 EDT Electronically signed by Parveen [facility] Conversion Health Social Work Professor Cerner at 12/08/2022 12:12 PM CDT documented in this encounter Plan of Treatment Not on file documented as of this encounter Visit Diagnoses Not on filedocumented in this encounter
--- OUTSIDE RECORDS SUMMARY | 2025-05-13 13:08 | XMS_ITS | Encounter Summary ---
Author Organization [employer] ([place], [place], [place], [place]) Address [address] [place] [address] Care Team Providers Care Lamination Technician Name Role Phone Unavailable Primary Care Provider Unavailabl e Encounter Details Date Type Department Care Team (Late st Contact Info) Description 11/16/2018 Transcribed Document [facility] [place] Family Medicine [address] [place] [address] ProviderErika MD [address], [place] [id number] Social History Tobacco Use Types Packs/Day Years [...] Medical. Performed by: JULIO CESAR CARVALHO MD-CAT. Bandoleer Packer: ERASMO LÓPEZ PA. Notes: Procedure: Resection and [...]
--- OUTSIDE RECORDS SUMMARY | 2025-05-13 13:08 | XMS_ITS | Encounter Summary ---
Author Organization [employer] ([place], [place], [place], [place]) Address [address] [place] [address] Care Team Providers Care Family Practice Doctor Name Role Phone Unavailable Primary Care Provider Unavailabl e Encounter Details Date Type Department Care Team (Late st Contact Info) Description 11/26/2018 Transcribed Document [facility] [place] Family Medicine [address] [place] [address] ProviderErika MD [address] [place], [place] [phone] Social History Tobacco Use Types Packs/Day Years [...] 1940 Associated Diagnoses: CAD (coronary artery disease), [place] coronary artery; Thrombocytopenia; Coronary artery disease; HTN [...] swelling - improved today. Integumentary: Warm, Dry, [place], incision is C/D/I. Neurologic: Alert, left sided [...] to [facility] -Transfer to [facility] 11/24/18 -POD#8 -Awaiting transfer to [facility] -Awaiting response from [facility] 11/25/18 -left upper extremity venous doppler - doppler this am positive for LUE DVT - will start coumadin and heparin bridge -awaiting [facility] 11/26/18 -Heparin drip and coumadin for LUE DVT Left arm swelling improved today INR 1.1 today, INR goal 2-3 Possibly transfer to [facility] this weekend EF 55-60% per echo 11/16/18 DVT Prophylaxis: SCDs Diagnosis CAD (coronary artery disease), [place] coronary artery - Admitting, Medical. Thrombocytopenia - [...]
--- OUTSIDE RECORDS SUMMARY | 2025-05-13 13:08 | XMS_ITS | Encounter Summary ---
Author Organization [employer] ([place], [place], [place], [place]) Address [address] [place] [address] Care Team Providers Care Land Sales Agent Name Role Phone Unavailable Primary Care Provider Unavailabl e Encounter Details Date Type Department Care Team (Late st Contact Info) Description 11/16/2018 Transcribed Document [facility] [address] [place] [address] Niles Nunez MD [address] [place], [place] [id number] Social History Tobacco Use Types Packs/Day Years [...]
--- OUTSIDE RECORDS SUMMARY | 2025-05-13 13:08 | XMS_ITS | Encounter Summary ---
Author Organization [employer] ([place], [place], [place], [place]) Address [address] [place] [address] Care Team Providers Care Ibm Bpm Architect Name Role Phone Unavailable Primary Care Provider Unavailabl e Encounter Details Date Type Department Care Team (Late st Contact Info) Description 11/16/2018 Transcribed Document [facility] [place] Family Medicine [address] [place] [address] ProviderErika MD [address] [place] [address] Social History Tobacco Use Types [...]
--- OUTSIDE RECORDS SUMMARY | 2025-05-13 13:08 | XMS_ITS | Encounter Summary ---
Author Organization [employer] ([place], [place], [place], [place]) Address [address] [place] [address] Care Team Providers Care Application Packaging Specialist Name Role Phone Unavailable Primary Care Provider Unavailabl e Encounter Details Date Type Department Care Team (Late st Contact Info) Description 11/19/2018 Transcribed Document [facility] [place] Family Medicine [address] [place] [address] ProviderErika MD [address] [place], [place] [phone] Social History Tobacco Use Types Packs/Day Years [...] 1940 Associated Diagnoses: CAD (coronary artery disease), [place] coronary artery; Thrombocytopenia; Coronary artery disease; HTN [...] S1, S2, No edema. Integumentary: Warm, Dry, [place], incision is C/D/I, He did not follow [...] Prophylaxis: SCDs Diagnosis CAD (coronary artery disease), [place] coronary artery - Admitting, Medical. Thrombocytopenia - [...]
--- OUTSIDE RECORDS SUMMARY | 2025-05-13 13:08 | XMS_ITS | Encounter Summary ---
Author Organization [employer] ([place], [place], [place], [place]) Address [address] [place] [address] Care Team Providers Care Wardrobe Mistress Name Role Phone Unavailable Primary Care Provider Unavailabl e Encounter Details Date Type Department Care Team (Late st Contact Info) Description 11/05/2018 Transcribed Document [facility] [place] [address] [place] [address] ProviderErika MD [address] [place] [address] Social History Tobacco Use Types [...]
--- OUTSIDE RECORDS SUMMARY | 2025-05-13 13:08 | XMS_ITS | Encounter Summary ---
Author Organization [employer] ([place], [place], [place], [place]) Address [address] [place] [address] Care Team Providers Care Causticiser Name Role Phone Unavailable Primary Care Provider Unavailabl e Encounter Details Date Type Department Care Team (Late st Contact Info) Description 11/26/2018 Transcribed Document [facility] [place] Family Medicine [address] [place] [address] ProviderErika MD [address] [place] [address] Social History Tobacco Use Types [...]
--- OUTSIDE RECORDS SUMMARY | 2025-05-13 13:08 | XMS_ITS | Encounter Summary ---
Author Organization [employer] ([place], [place], [place], [place]) Address [address] [place] [address] Care Team Providers Care Laborer Filter Plant Name Role Phone Unavailable Primary Care Provider Unavailabl e Encounter Details Date Type Department Care Team (Late st Contact Info) Description 11/16/2018 Transcribed Document [facility] [place] Family Medicine [address] [place] [address] ProviderErika MD [address] [place] [address] Social History Tobacco Use Types [...] PROCEDURE: 1. Left radial arterial line. 2. Astatula-Jovanna catheter. SURGEON: Porfirio Gaxiola IV, MD Procedure [...] introducer was applied over guidewire, then a Astatula-Jovanna catheter was advanced down MAC introducer to pulmonary artery, pulmonary artery wedge position. The patient tolerated both procedures well without any blood loss. Dictated By: Saud Oliver PA-C For Porfirio Gaxiola IV, M.D. Richard Floyd, IV, M.D. Dict: 11/16/2018 08:44:48 Trans: 11/16/2018 12:16:26 CC1: Porfirio Gaxiola IV, M.D. Electronically signed by Christina Saini Conversion Operations Officer Trust Department Cerner at 12/08/2022 12:37 PM CDT documented in this encounter Plan of Treatment Not on file documented as of this encounter Visit Diagnoses Not on filedocumented in this encounter
--- OUTSIDE RECORDS SUMMARY | 2025-05-13 13:08 | XMS_ITS | Encounter Summary ---
Author Organization [employer] ([place], [place], [place], [place]) Address [address] [place] [address] Care Team Providers Care Bus Driver Supervisor Name Role Phone Unavailable Primary Care Provider Unavailabl e Encounter Details Date Type Department Care Team (Late st Contact Info) Description 11/28/2018 Transcribed Document [facility] [place] [address] [place] [address] ProviderErika MD [address] [place], [place] [id number] Social History Tobacco Use Types Packs/Day Years [...] 1940 Associated Diagnoses: CAD (coronary artery disease), [place] coronary artery; Thrombocytopenia; Coronary artery disease; HTN [...] mg, Oral, At Bedtime saliva substitutes: 1 [place], Buccal, Q2H, PRN: Other (See Comment) warfarin: [...] Q1H saliva substitute liq 59 mL 1 [place], Buccal, Q2H Problem list: Medical Aneurysm, thoracic aortic / SNOMED CT 4940118391 / Confirmed Aortic valve insufficiency / SNOMED CT 137380856 / Confirmed Arthritis / SNOMED CT 0830201 / Confirmed At risk for sleep apnea / IMO 31056672 / Confirmed CAD (coronary artery disease) / SNOMED CT 28956714 / Confirmed HTN - Hypertension / SNOMED CT 2423017070 / Confirmed Hypothyroidism / SNOMED CT 39686855 / Confirmed Frequent urination / SNOMED CT 752883912 / Confirmed Nocturia / SNOMED CT 080798875 / Confirmed Prostate stricture / SNOMED CT 57136744 / Confirmed, Active Problems (13) Aneurysm, thoracic [...] swelling - improved today. Integumentary: Warm, Dry, [place], incision is C/D/I. Neurologic: Alert, Oriented, left [...] (Current Encounter/Past 24 Hours) PT 20.8 Second(s) [place] 11/28/2018 09:08 PTT 27.6 Second(s) 11/28/2018 08:53 INR 2.0 [place] 11/28/2018 09:08 . Impression and Plan Plan: [...] CM has sent information to [facility] -Transfer to [facility] 11/24/18 -POD#8 -Awaiting transfer to [facility] -Awaiting response from [facility] 11/25/18 -left upper extremity venous doppler - doppler this am positive for LUE DVT - will start coumadin and heparin bridge -awaiting [facility] 11/26/18 -Heparin drip and coumadin for LUE DVT Left arm swelling improved today INR 1.1 today, INR goal 2-3 Possibly transfer to [facility] this weekend 11/27/18: Left arm swelling continues to improve Continues on Coumadin and heparin bridge INR: 1.4 (1.1 yesterday) goal: 2 to 3 [facility] soon,? Tomorrow 11/28/18 BP in 70s-80s this [...] Prophylaxis: SCDs Diagnosis CAD (coronary artery disease), [place] coronary artery - Admitting, Medical. Thrombocytopenia - [...]
--- OUTSIDE RECORDS SUMMARY | 2025-05-13 13:08 | XMS_ITS | Encounter Summary ---
Author Organization [employer] ([place], [place], [place], [place]) Address [address] [place] [address] Care Team Providers Care Inserter Name Role Phone Unavailable Primary Care Provider Unavailabl e Encounter Details Date Type Department Care Team (Late st Contact Info) Description 11/28/2018 Transcribed Document [facility] [place] [place] Family Medicine [address] [place] [address] ProviderErika MD [address] [place] [address] Social History Tobacco Use [...] Admission Diagnosis : Atherosclerotic heart disease of [place] coronary artery without angina pectoris Atherosclerotic heart disease of [place] coronary artery without angina pectoris Cerebral infarction, [...] change in location/level of care Rapid Response Inserter #1 : COREY MACHUCA, RN COREY MACHUCA, RN - 11/28/2018 4:37 EDT Electronically signed by Parveen [facility] Conversion Kennel Technician Cerner at 12/08/2022 12:39 PM CDT documented in this encounter Plan of Treatment Not on file documented as of this encounter Visit Diagnoses Not on filedocumented in this encounter
--- OUTSIDE RECORDS SUMMARY | 2025-05-13 13:08 | XMS_ITS | Encounter Summary ---
Author Organization [employer] ([place], [place], [place], [place]) Address [address] [place] [address] Care Team Providers Care End Lathe Operator Name Role Phone Unavailable Primary Care Provider Unavailabl e Encounter Details Date Type Department Care Team (Late st Contact Info) Description 11/21/2018 Transcribed Document [facility] [place] [address] [place] [address] ProviderErika MD [address] [place] [address] Social History Tobacco Use Types [...]
--- OUTSIDE RECORDS SUMMARY | 2025-05-13 13:08 | XMS_ITS | Encounter Summary ---
Author Organization [employer] ([place], [place], [place], [place]) Address [address] [place] [address] Care Team Providers Care Barrel Builder Name Role Phone Unavailable Primary Care Provider Unavailabl e Encounter Details Date Type Department Care Team (Late st Contact Info) Description 11/19/2018 Transcribed Document [facility] Cardiology [address] [place] [address] Lc Armendariz MD [address] [facility] [address] [place] [address] Social History Tobacco Use Types [...] mg, Oral, At Bedtime saliva substitutes: 1 [place], Buccal, Q2H, PRN: Other (See Comment) sodium [...] of motion, Normal strength. Integumentary: Warm, Dry, [place]. Neurologic: Alert, Oriented. Psychiatric: Cooperative, Appropriate mood & affect. Results Review NOV 19 04:08 138 105 21 / H 184 4.0 28 0.70 \ NOV 19 04:08 \ L 10.0 / H 15.0 L 101 / L 30.3 \ Radiology Results (Last 48 hours) [id number] -- 11/16/2018 06:45 CR Chest 1 Vw [...]
--- OUTSIDE RECORDS SUMMARY | 2025-05-13 13:08 | XMS_ITS | Encounter Summary ---
Author Organization [employer] ([place], [place], [place], [place]) Address [address] [place] [address] Care Team Providers Care Mother'S Helper Name Role Phone Unavailable Primary Care Provider Unavailabl e Encounter Details Date Type Department Care Team (Late st Contact Info) Description 11/28/2018 Transcribed Document [facility] [place] [address] [place] [address] ProviderErika MD [address] [place], [place] [address] Social History Tobacco Use Types Packs/Day Years [...]
--- OUTSIDE RECORDS SUMMARY | 2025-05-13 13:08 | XMS_ITS | Encounter Summary ---
Author Organization [employer] ([place], [place], [place], [place]) Address [address] [place] [address] Care Team Providers Care Wind Energy Technician Name Role Phone Unavailable Primary Care Provider Unavailabl e Encounter Details Date Type Department Care Team (Late st Contact Info) Description 11/19/2018 Transcribed Document [facility] [place] [place] [address] [place] [address] ProviderErika MD [address] [place] [address] Social History Tobacco Use Types [...] TF regimen to add fiber. EST NEEDS: 8091-6816 kcal (25-30kcal/kg), 95g pro (1.2g/kg) 1. Change TF to Jevity 1.5 @ 60 ml/hr + 1 bottle daily (Provides 2040 kcal; 99 gm pro) Goal: meet est needs 2. Monitor alertness and appropriateness for BEEF FARMER eval Goal: est safe po diet 3. Weigh pt 2x weekly Goal: no sig weight changes High Risk DAVION [address], LD - 11/19/2018 12:43 EDT Electronically signed by Parveen, [facility] Conversion Electric Blasting Cap Assembler Cerner at 12/08/2022 12:18 PM CDT documented in this encounter Plan of Treatment Not on file documented as of this encounter Visit Diagnoses Not on filedocumented in this encounter
--- OUTSIDE RECORDS SUMMARY | 2025-05-13 13:08 | XMS_ITS | Encounter Summary ---
Author Organization [employer] ([place], [place], [place], [place]) Address [address] [place] [address] Care Team Providers Care Airplane Pilot Supervisor Name Role Phone Unavailable Primary Care Provider Unavailabl e Encounter Details Date Type Department Care Team (Late st Contact Info) Description 11/26/2018 Transcribed Document [facility] [place] [address] [place] [address] ProviderErika MD [address] [place] [address] Social History Tobacco Use Types [...] On: 11/26/2018 9:15 EDT by JOSSUE RODRÍGUEZ COLOR DIPPER General Information Visit Type, COLOR DIPPER : Re-Evaluation Patient Orders : COLOR DIPPER Fxoliver Limitation Documentation x 1 -111 Start: 11/25/18 10:29:25 EDT - SYSTEM, SYSTEM Speech Language Pathology Modified Barium Swallow Study - Start: 11/26/18 7:00:00 EDT, Routine, For Other (see special instructions), Dysphagia -111 GISSEL ZHANG PA COLOR DIPPER Fxnl Limitation Documentation - Start: 11/20/18 9:37:47 EDT, Continuous Order -111 SYSTEM, SYSTEM Speech Language Pathology Additional Tx - Start: 11/20/18 9:36:00 EDT, For Dysphagia, Continuous Order -111 Admission Date : Admission Date/Time: 11/16/18 06:45:00 Medical Chart Reviewed, COLOR DIPPER : Yes Personal Devices : Personal Devices No Devices Recorded Assistive Devices : Assistive Devices No Devices Recorded Active Diagnoses : 11/23/2018 00:00 Cerebral infarction, unspecified 11/17/2018 00:00 Atherosclerotic heart disease of [place] coronary artery without angina pectoris 11/17/2018 00:00 Essential (primary) hypertension 11/17/2018 00:00 Hypothyroidism, unspecified 11/17/2018 00:00 Nonrheumatic aortic (valve) insufficiency 11/17/2018 00:00 Restless legs syndrome 11/17/2018 00:00 Thoracic aortic aneurysm, without rupture 11/17/2018 00:00 Thrombocytopenia, unspecified 11/16/2018 00:00 Atherosclerotic heart disease of [place] coronary artery without angina pectoris 11/16/2018 00:00 Nonrheumatic aortic (valve) insufficiency 11/16/2018 00:00 Thoracic aortic aneurysm, without rupture Therapy Diagnosis, COLOR DIPPER : functional oropharyngeal skills Previous Speech/Language Evaluations : N/A Previous Swallow Precautions : Bedside 11/20 recommended instrumental prior to initiating PO diet, FEES recommended reg/nectar. Pt has participated in tx and is ready for a repeat study Previous Cognitive Evaluations : this admit Diet/Intake Prior to Current Admission : Regular/thin Diet/Intake During Current Admission : reg/thin following MBS Intubation Comment, COLOR DIPPER : 11/16-11/17 Vital Signs RTF : Vitals [...] 9:15 EDT General Status Patient Received Status, COLOR DIPPER : Up in chair Patient Left Status, COLOR DIPPER : Up in chair JOSSUE RODRÍGUEZ SLP [...] Consistencies Trialed MB/VFSS : Thin by straw, [place] by straw, Pudding JOSSUE RODRÍGUEZ, ERIC - 11/26/2018 9:15 EDT Swallow Impressions Impressions, MBSS/VFSS : Functional swallow for oral intake JOSSUE RODRÍGUEZ SLP - 11/26/2018 9:15 EDT 8 Point Penetration/Aspiration Grid Thin by Straw : 1 [place] by Straw : 1 Pudding : 1 [...] Discussed briefly with CTS PA. JOSSUE RODRÍGUEZ, COLOR DIPPER - 11/26/2018 9:15 EDT Swallow Recommendations Recommended Diet Type, SwRec : Regular Recommended Liquid Diet, SwRec : Thin Swallow Position, SwRec : Upright 90 degrees Supervision Level w/Meals, SwRec : Independent, modified Recommended Med Present, SwRec : As per nursing JOSSUE RODRÍGUEZ SLP - 11/26/2018 9:15 EDT Therapy Indication Assessment COLOR DIPPER Indicated : No COLOR DIPPER Not Indicated : At prior level of function JOSSUE RODRÍGUEZ SLP - 11/26/2018 9:15 EDT Swallow Plan/Goals Swallow LTG Grid COLOR DIPPER Jail Goal #1 COLOR DIPPER Auto Body Estimator Goal #2 Swallow LTG : Establish safe [...] JOSSUE RODRÍGUEZ SLP - 11/26/2018 9:15 EDT COLOR DIPPER Education Assessment Grid 1 Aspiration : Needs further teaching Diet Recommendation : Needs further teaching JOSSUE RODRÍGUEZ SLP - 11/26/2018 9:[address] [facility] COLOR DIPPER Charges Modified Barium Swallow : 1 JOSSUE RODRÍGUEZ SLP - 11/26/2018 9:15 EDT Electronically signed by Christina Saini Conversion Residential Framing Carpenter Cerner at 12/08/2022 12:34 PM CDT documented in this encounter Plan of Treatment Not on file documented as of this encounter Visit Diagnoses Not on filedocumented in this encounter
--- OUTSIDE RECORDS SUMMARY | 2025-05-13 13:08 | XMS_ITS | Encounter Summary ---
Author Organization [employer] ([place], [place], [place], [place]) Address [address] [place] [address] Care Team Providers Care Hairspring I Inspector Name Role Phone Unavailable Primary Care Provider Unavailabl e Encounter Details Date Type Department Care Team (Late st Contact Info) Description 11/05/2018 Transcribed Document [facility] [place] [address] [place] [address] ProviderErika MD [address] [place] [address] Social History Tobacco Use Types [...] Source : Stated Height Entry Format : [place] Height, Feet : 6 ft(Converted to: 183 cm, 72 Inch) Height, Inches : 1 Inch(Converted to: 0 ft 1 Inch, 2.54 cm) Clinical Height : 185.42 cm Weight Source : Standing scale Weight Entry Format : [place] Clinical Dosing Weight : 77.27 kg Weight, Pounds : 170 lb Body Surface Area (BSA) : 2.01 m2 Body Mass Index : 22.5 kg/m2 [place] Body Weight : 79 kg SRIRAM PATEL [...] Any Spiritual/Cultural Needs or Requests : No Congregation Preference : Sabianism SRIRAM PATEL RN - 11/05/2018 8:49 EDT [...] Obtained From : Patient Primary Language : Brazilian Preferred Communication Mode : Verbal Communication Barrier [...] Potential problem Aiden Score : 20 SRIRAM PAETL RN - 11/05/2018 8:49 EDT Oxygen Therapy [...] Scale Risk Level : 0-24 Low Risk [place] Fall Interventions : Adequate lighting, Bed in [...] Oriented Kavin Eye Opening Response : Spontaneous [place] Coma Score : 15 SRIRAM PATEL RN - 11/05/2018 8:49 EDT Electronically signed by Christina Saini Conversion Electrical Service Technician Cerner at 12/08/2022 12:36 PM CDT documented in this encounter Plan of Treatment Not on file documented as of this encounter Visit Diagnoses Not on filedocumented in this encounter
--- OUTSIDE RECORDS SUMMARY | 2025-05-13 13:08 | XMS_ITS | Encounter Summary ---
Author Organization [employer] ([place], [place], [place], [place]) Address [address] [place] [address] Care Team Providers Care Stud Setter Name Role Phone Unavailable Primary Care Provider Unavailabl e Encounter Details Date Type Department Care Team (Late st Contact Info) Description 11/05/2018 Transcribed Document [facility] [place] [address] [place] [address] ProviderErika MD [address] [place] [address] Social History Tobacco Use Types Packs/Day Years Used Date Smoking Tobacco: Never Assessed Sex and Gender Information Value Date Recorded Sex Assigned at Not on file Legal Sex Male 5:03 PM CDT Gender Identity Not on file Sexual Orientation Not on file documented as of this encounter Miscellaneous Notes * Cerner Conversion Note - Erika ProviderMD - 11/05/2018 12:48 PM CDT [address] [address] Patient Copy Patient Information: Name: DOTTIE VILLASENOR Current Date: 11/05/2018 12:48:54 : 1940 Patient Address: [address] [place] [id number] Patient Attending Physician: LEYLA ARMENDARIZ MD-CAR Primary Care Provider: DEMETRICE ARMIJO NP-JORGE Primary Care Provider Discharge Diagnosis: Weight on Admission: 170 lb, 0 oz Comment: Follow-up Instructions: With: Address: When: JULIO CESAR GAXIOLA [address] [place] [address], [address] [phone] Business (1) 1:30 PM Comments: Follow up with Dr. Gaxiola , surgeon, October at 1:30 pm With: Address: When: JULIO CESAR [address] [place] [address] Scrybe (1) 1:15 PM Comments: Follow up with [...] you are awake and alert. ??? Take hykv-mup-szhagqu and prescription medicines only as told by [...] 05/31/2014 Document Revised: 01/12/2017 Document Reviewed: 11/29/2016 [employer] Interactive Patient Education ? 2017 [employer]. Radial Site Care Introduction Refer to this [...] 02/26/2006 Document Revised: 01/15/2017 Document Reviewed: 01/11/2014 [employer] Interactive Patient Education ? 2017 [employer]. CIGARETTE SMOKING: The facts are clear, cigarette smoking will shorten your life. Smoking can cause many illnesses along the way. As a healthcare provider, we recommend that you stop smoking. Assistance with quitting is available by contacting 5-114-YXAP-NOW. This is a free resource providing counseling, [...] Be sure to sign up for the [employer] patient portal, which gives you 16/03 access to your medical information ??? including these discharge instructions ??? using your computer, smartphone, or tablet. Just go to [employer] to get started. Questions? Call . [facility] would like to thank you for allowing us to assist you with your healthcare needs. HAMILTON Jarvis ROBERT H, (or enrollment eligibility representative) have received the above patient education materials/instructions and have verbalized understanding: Patient Signature _ Date/Time Patient Game Design Instructor Signature (if needed) Date/Time Clinician/Hospital Game Design Instructor Signature (if needed) Date/Time Electronically signed by Parveen, [facility] Conversion Automatic Clipper And Stripper Cerner at 12/08/2022 12:14 PM CDT documented in this encounter Plan of Treatment Not on file documented as of this encounter Visit Diagnoses Not on filedocumented in this encounter
--- OUTSIDE RECORDS SUMMARY | 2025-05-13 13:08 | XMS_ITS | Encounter Summary ---
Author Organization [employer] ([place], [place], [place], [place]) Address [address] [place] [address] Care Team Providers Care Epic Professional Name Role Phone Unavailable Primary Care Provider Unavailabl e Encounter Details Date Type Department Care Team (Late st Contact Info) Description 11/21/2018 Transcribed Document [facility] [place] [address] [place] [address] ProviderErika MD [address] [place] [address] Social History Tobacco Use Types [...] 11/21/2018 9:37 EDT by José Miguel Tran, [facility] Phone Call for Consults Consult Phone Call/Page Attempt : Other: Nurse spoke to Dr. Amaro. José Miguel Tran [facility] - 11/21/2018 9:40 EDT documented in this encounter Plan of Treatment Not on file documented as of this encounter Visit Diagnoses Not on filedocumented in this encounter
--- OUTSIDE RECORDS SUMMARY | 2025-05-13 13:08 | XMS_ITS | Encounter Summary ---
Author Organization [employer] ([place], [place], [place], [place]) Address [address] [place] [address] Care Team Providers Care Butter Melter Name Role Phone Unavailable Primary Care Provider Unavailabl e Encounter Details Date Type Department Care Team (Late st Contact Info) Description 11/05/2018 Transcribed Document [facility] [place] [address] [place] [address] ProviderErika MD [address] [place] [address] Social History Tobacco Use Types [...] 11/05/2018 12:46 EDT Electronically signed by Parveen [facility] Conversion Senior Solutions Consultant Cerner at 12/08/2022 12:20 PM CDT documented in this encounter Plan of Treatment Not on file documented as of this encounter Visit Diagnoses Not on filedocumented in this encounter
--- OUTSIDE RECORDS SUMMARY | 2025-05-13 13:08 | XMS_ITS | Encounter Summary ---
Author Organization [employer] ([place], [place], [place], [place]) Address [address] [place] [address] Care Team Providers Care Fisher Terrapin Name Role Phone Unavailable Primary Care Provider Unavailabl e Encounter Details Date Type Department Care Team (Late st Contact Info) Description 11/27/2018 Transcribed Document [facility] [place] [address] [place] [address] ProviderErika MD [address] [place], [place] [id number] Social History Tobacco Use Types Packs/Day Years Used Date Smoking Tobacco: Never Assessed Sex and Gender Information Value Date Recorded Sex Assigned at Not on file Legal Sex Male 5:03 PM CDT Gender Identity Not on file Sexual Orientation Not on file documented as of this encounter Miscellaneous Notes * Cerner Conversion Note - Historical ProviderMD - 11/27/2018 2:00 AM CDT Manager Integrity Details Entered On: 11/27/2018 3:00 EDT Performed [...] EDT Electronically signed by Christina Saini Conversion Checkering Machine Adjuster Cerner at 12/08/2022 12:30 PM CDT documented in this encounter Plan of Treatment Not on file documented as of this encounter Visit Diagnoses Not on filedocumented in this encounter
[2025-05-13] MEDS: ERTAPENEM SODIUM 1 GM VIAL IM (13:15)
== END 2025-05-13 13:30 | disposition home or self-care (01) ==
LOC: INF 13:04
PROVIDERS: PCP Internal Medicine; Visit Provider Internal Medicine
DX: N39.0 Urinary tract infection, site not specified (principal); B96.20 Unspecified Escherichia coli [E. coli] as the cause of diseases classified elsewhere; Z16.12 Extended spectrum beta lactamase (ESBL) resistance
CPT/HCPCS: 96372; J1335

== ENCOUNTER 2025-05-26 08:52 | Outpatient (CLI) | payer MEDICARE, SELFPAY ==
[2025-05-26 13:18] LABS: Microscopic, Urine URINE MICROSCOPIC (MICROSCOPIC)
[2025-05-26 14:19] LABS: Bilirubin,Urine Negative (Negative); Color,Urine YELLOW (Yellow); Glucose,Urine (UA) Negative (Negative); Ketones,Urine Negative (Negative); Leukocyte Esterase,Urine Negative (Negative); PH,Urine 6.5 (5.0-8.5); Protein,Urine Negative (Negative); Specific Gravity, Urine 1.015 (1.005-1.030); Urobilinogen,Urine 0.2 EU/dl (0.2)
[2025-05-26 14:32] LABS: Squamous Epithelial Cell,Urine Occasional #/hpf (0-5)
[2025-05-26 14:33] LABS: Amorphous Sediment,Urine 2+ /lpf; Bacteria,Urine 1+ /lpf
--- OUTSIDE RECORDS SUMMARY | 2025-05-29 08:56 | XMS_ITS | Encounter Summary ---
Author Organization [employer] ([place], [place], [place], [place]) Address [address] [place] [address] Care Team Providers Care Supervisor Contact And Service Clerks Name Role Phone Unavailable Primary Care Provider Unavailabl e Encounter Details Date Type Department Care Team (Late st Contact Info) Description 11/22/2018 Transcribed Document [facility] [place] [facility] [place] [address] [place] [address] ProviderErika MD [address] [place] [address] Social History Tobacco Use Types Packs/Day Years Used Date Smoking Tobacco: Never Assessed Sex and Gender Information Value Date Recorded Sex Assigned at Not on file Legal Sex Male 5:03 PM CDT Gender Identity Not on file Sexual Orientation Not on file documented as of this encounter Miscellaneous Notes * [employer] Conversion Note - Historical ProviderMD - 11/22/2018 12:18 PM CDT CONTINUOUS PROCESS MACHINE OPERATOR Attempt to Treat Entered On: 11/22/2018 12:20 EDT Performed On: 11/22/2018 12:18 EDT by JOSSUE RODRÍGUEZ SLP Attempt to Treat Inability to Treat Comment : New orders received from Neurologist. ST is currently following pt for dysphagia. Will await neuro dx for full communication JOSSUE Mccarthy, CONTINUOUS PROCESS MACHINE OPERATOR - 11/22/2018 12:18 EDT documented in this encounter Plan of Treatment Not on file documented as of this encounter Visit Diagnoses Not on filedocumented in this encounter
--- OUTSIDE RECORDS SUMMARY | 2025-05-29 08:56 | XMS_ITS | Encounter Summary ---
Author Organization [employer] ([place], [place], [place], [place]) Address [address] [place] [address] Care Team Providers Care Design Quality Engineer Name Role Phone Unavailable Primary Care Provider Unavailabl e Encounter Details Date Type Department Care Team (Late st Contact Info) Description 11/22/2018 Transcribed Document [facility] [place] [address] [place] [address] ProviderErika MD [address] [place], [place] [id number] Social History Tobacco Use Types Packs/Day Years Used Date Smoking Tobacco: Never Assessed Sex and Gender Information Value Date Recorded Sex Assigned at Not on file Legal Sex Male 5:03 PM CDT Gender Identity Not on file Sexual Orientation Not on file documented as of this encounter Miscellaneous Notes * Cerner Conversion Note - Historical ProviderMD - 11/22/2018 2:00 AM CDT Professor Of Kinesiology Details Entered On: 11/22/2018 6:09 EDT Performed [...]
--- OUTSIDE RECORDS SUMMARY | 2025-05-29 08:56 | XMS_ITS | Encounter Summary ---
Author Organization [employer] ([place], [place], [place], [place]) Address [address] [place] [address] Care Team Providers Care Notching Machine Operator Name Role Phone Unavailable Primary Care Provider Unavailabl e Encounter Details Date Type Department Care Team (Late st Contact Info) Description 11/17/2018 Transcribed Document [facility] [place] Medicine [address] [place] [address] ProviderErika MD [address] [place] [address] Social History Tobacco Use Types Packs/Day Years Used Date Smoking Tobacco: Never Assessed Sex and Gender Information Value Date Recorded Sex Assigned at Not on file Legal Sex Male 5:03 PM CDT Gender Identity Not on file Sexual Orientation Not on file documented as of this encounter Miscellaneous Notes * Cerner Conversion Note - Historical ProviderMD - 11/17/2018 2:00 AM CDT Machine Setup Operator Details Entered On: 11/17/2018 7:39 EDT Performed [...]
--- OUTSIDE RECORDS SUMMARY | 2025-05-29 08:56 | XMS_ITS | Encounter Summary ---
Author Organization [employer] ([place], [place], [place], [place]) Address [address] [place] [address] Care Team Providers Care Poultry Trimmer Name Role Phone Unavailable Primary Care Provider Unavailabl e Encounter Details Date Type Department Care Team (Late st Contact Info) Description 11/22/2018 Transcribed Document [facility] [place] [address] [place] [address] ProviderErika MD [address] [place] [address] Social History Tobacco Use Types [...] EDT by LEONEL GUZMAN Chaplain General Information Shinto Preference : Restorationist LEONEL GUZMAN Chaplain - 11/24/2018 2:35 EDT Spiritual Assessment Spiritual Assessment Comment/Summary Points : Prov. empathetic engaged listening: Pt. is Restorationist, spouse & son visit pt. regularly, Spouse & Pt. in their late teens. Pt. enjoys reminiscing and story telling, Pt. looking forward to [facility] rehab noting he wants/needs to work [...]
--- OUTSIDE RECORDS SUMMARY | 2025-05-29 08:56 | XMS_ITS | Encounter Summary ---
Author Organization [employer] ([place], [place], [place], [place]) Address [address] [place] [address] Care Team Providers Care Medical Communication Specialist Name Role Phone Unavailable Primary Care Provider Unavailabl e Encounter Details Date Type Department Care Team (Late st Contact Info) Description 11/21/2018 Transcribed Document [facility] [place] Family [place] [address] [place] [address] ProviderErika MD [address] [place] [address] Social History Tobacco Use Types [...] Source : Measured Height Entry Format : [place] Height, Feet : 6 ft Height, Inches : 1 Inch Clinical Height : 185.42 cm Body Surface Area (BSA), Routine : 2.06 m2 Body Mass Index (BMI), Routine : 23.79 kg/m2 SHERRIE FUENTES RN - 11/21/2018 5:37 EDT Electronically signed by Christina Saini Conversion Circular Knife Cutter Machine Cerner at 12/08/2022 12:31 PM CDT documented in this encounter Plan of Treatment Not on file documented as of this encounter Visit Diagnoses Not on filedocumented in this encounter
--- OUTSIDE RECORDS SUMMARY | 2025-05-29 08:56 | XMS_ITS | Encounter Summary ---
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 Respiratory Assessment Comment : Nasal cannula MAMTA SOLO, ERIC - 11/23/2018 14:12 EDT Visit Type, OBSTETRICS TECH : Initial evaluation Patient Orders : Speech Language Pathology Evaluation and Treatment -111 Start: 11/22/18 11:18:00 EDT, Routine, For Speech Language Cognitive Eval and Treat - JAY JAY CRESPO MD-DIANE OBSTETRICS TECH Fxnl Limitation Documentation - Start: 11/20/18 9:37:47 EDT, Continuous Order -111 SYSTEM, SYSTEM Speech Language Pathology Additional Tx - Start: 11/20/18 9:36:00 EDT, For Dysphagia, Continuous Order -111 Admission Date : Admission Date/Time: 11/16/18 06:45:00 Medical Chart Reviewed, OBSTETRICS TECH : Yes Personal Devices : Personal Devices No Devices Recorded Assistive Devices : Assistive Devices No Devices Recorded Active Diagnoses : 11/23/2018 00:00 Cerebral infarction, unspecified 11/17/2018 00:00 Atherosclerotic heart disease of [place] [...] Gag Reflex Intact : Yes Intubation Comment, OBSTETRICS TECH : 11/16-11/17 Vital Signs RTF : Vitals [...] 13:41 EDT General Status Patient Received Status, OBSTETRICS TECH : Supine in bed Patient Left Status, OBSTETRICS TECH : Supine in bed MAMTA SOLO SLP [...] Oral Mechanism for Daily Living : Intact OBSTETRICS TECH Cough : Weak MAMTA SOLO SLP - [...] 14:12 EDT Evaluation Methods Types of Evaluation, OBSTETRICS TECH : Informal MAMTA SOLO SLP - 11/23/2018 14:12 EDT [facility] Impressions Impressions, Speech/Lang/Cog : Other: Mixed expressive/receptive communication impairment [facility] Overall Impressions : Communication evaluation [...] - 11/23/2018 14:12 EDT Therapy Indication Assessment OBSTETRICS TECH Indicated : Yes OBSTETRICS TECH Interdisciplinary Consultation Needs : No OBSTETRICS TECH Problem List : Impaired, Spoken Language Comprehension, Impaired, Spoken Language Expression MAMTA SOLO SLP - 11/23/2018 14:12 EDT LTG Lang/Comm/Cog LTG OBSTETRICS TECH Ribbon Hand Goal 1 Ribbon Hand Goal 2 Goals : Improved spoken language [...] items in a category, complex/abstract Other: MAMTA Achraya SLP - 11/23/2018 14:12 EDT MAMTA SOLO SLP - 11/23/2018 14:12 EDT MAMTA SOLO SLP - 11/23/2018 14:12 EDT Education Barriers To Learning : Acuity of Illness, Cognitive deficit Individuals Taught : Patient Readiness to Learn : Cooperative Readiness to Learn : Explanation MAMTA SOLO SLP - 11/23/2018 14:12 EDT OBSTETRICS TECH Education Assessment Grid 1 Evaluation Results : Verbalizes understanding MAMTA SOLO SLP - 11/23/2018 14:12 EDT OBSTETRICS TECH Education Assessment Grid 2 Treatment Plan : Verbalizes understanding MAMTA SOLO SLP - 11/23/2018 14:[address] [facility] Evaluation of Speech Production & Language : 1 MAMTA SOLO SLP - 11/23/2018 14:12 EDT Anticipated Discharge Needs, OBSTETRICS TECH Anticipated Discharge to OT : Rehab, high intensity Recommend Continued Therapy at Discharge : Yes MAMTA SOLO SLP - 11/23/2018 14:12 EDT Electronically signed by Michele Saini Conversion Software Development Test Engineer Cerner at 12/08/2022 12:14 PM CDT documented in this encounter Plan of Treatment Not on file documented as of this encounter Visit Diagnoses Not on filedocumented in this encounter
--- OUTSIDE RECORDS SUMMARY | 2025-05-29 08:56 | XMS_ITS | Encounter Summary ---
Author Organization [employer] ([place], [place], [place], [place]) Address [address] [place] [address] Care Team Providers Care Health Outreach Worker Name Role Phone Unavailable Primary Care Provider Unavailabl e Encounter Details Date Type Department Care Team (Late st Contact Info) Description 11/22/2018 Transcribed Document [facility] [place] [address] [place] [address] ProviderErika MD [address] [place] [address] Social History Tobacco Use Types [...] On: 11/22/2018 9:23 EDT by JOSSUE RODRÍGUEZ PLAYBACK OPERATOR General Information Visit Type, PLAYBACK OPERATOR : Re-Evaluation Patient Orders : PLAYBACK OPERATOR Fxnl Limitation Documentation x 1 -111 Start: 11/22/18 8:22:14 EDT - SYSTEM, SYSTEM FEES - Start: 11/22/18 8:21:00 EDT, Routine, For Swallow Eval and Treat -111 MARIEL ROBLES PA PLAYBACK OPERATOR Fxnl Limitation Documentation - Start: 11/20/18 9:37:47 EDT, Continuous Order -111 SYSTEM, SYSTEM Speech Language Pathology Additional Tx - Start: 11/20/18 9:36:00 EDT, For Dysphagia, Continuous Order -111 Admission Date : Admission Date/Time: 11/16/18 06:45:00 Medical Chart Reviewed, PLAYBACK OPERATOR : Yes Personal Devices : Personal Devices No Devices Recorded Assistive Devices : Assistive Devices No Devices Recorded Active Diagnoses : 11/17/2018 00:00 Atherosclerotic heart disease of [place] coronary artery without angina pectoris 11/17/2018 00:00 Essential (primary) hypertension 11/17/2018 00:00 Hypothyroidism, unspecified 11/17/2018 00:00 Nonrheumatic aortic (valve) insufficiency 11/17/2018 00:00 Restless legs syndrome 11/17/2018 00:00 Thoracic aortic aneurysm, without rupture 11/17/2018 00:00 Thrombocytopenia, unspecified 11/16/2018 00:00 Atherosclerotic heart disease of [place] coronary artery without angina pectoris 11/16/2018 00:00 Nonrheumatic aortic (valve) insufficiency 11/16/2018 00:00 Thoracic aortic aneurysm, without rupture Therapy Diagnosis, PLAYBACK OPERATOR : normal oral skills, moderate pharyngeal dysphagia Previous Speech/Language Evaluations : N/A Previous Swallow Precautions : Bedside 11/20 recommended instrumental prior to initiating PO diet Previous Cognitive Evaluations : N/A Diet/Intake Prior to Current Admission : Regular/thin Diet/Intake During Current Admission : NPO with TF via [place] Gag Reflex Intact : Yes Intubation Comment, PLAYBACK OPERATOR : 11/16-11/17 Vital Signs RTF : [...] 9:23 EDT General Status Patient Received Status, PLAYBACK OPERATOR : Long sitting in bed Patient Left Status, PLAYBACK OPERATOR : Long sitting in bed JOSSUE RODRÍGUEZ [...] Consistencies Trialed FEES : Thin by straw, [place] by straw, Pureed, Regular solids JOSSUE RODRÍGUEZ SLP - 11/22/2018 9:23 EDT Swallow Impressions Impressions, FEES : Pharyngeal dysphagia JOSSUE RODRÍGUEZ SLP - 11/22/2018 9:23 EDT 8 Point Penetration/Aspiration Grid Thin by Straw : 8 [place] by Straw : 1 Pureed : 1 [...] : Regular Recommended Liquid Diet, SwRec : [place] Feeding Presentation Style, SwRec : No restrictions Swallow Position, SwRec : Upright 90 degrees Supervision Level w/Meals, SwRec : Assist, standby Recommended Med Present, SwRec : Crushed, Whole, With nectar, With puree/pudding, No medications with water Recommended Exam, Sw Rec : FEES Repeat Swallow Exam Timeframe : 3-6 days JOSSUE RODRÍGUEZ SLP - 11/22/2018 9:34 EDT Therapy Indication Assessment PLAYBACK OPERATOR Indicated : Yes PLAYBACK OPERATOR Problem List : Impaired, Swallowing JOSSUE RODRÍGUEZ SLP - 11/22/2018 9:34 EDT Swallow Plan/Goals Treatment Frequency, PLAYBACK OPERATOR : 5 times per wk Treatment Plan Est w/Pt/Caregvr, Swallow : Yes JOSSUE RODRÍGUEZ SLP - 11/22/2018 9:34 EDT Swallow LTG Grid PLAYBACK OPERATOR Long-Term Goal #1 PLAYBACK OPERATOR Long-Term Goal #2 Swallow LTG : Establish [...] JOSSUE RODRÍGUEZ SLP - 11/22/2018 9:34 EDT PLAYBACK OPERATOR Education Assessment Grid 1 Aspiration : Needs further teaching Diet Recommendation : Needs further teaching Dysphagia : Needs further teaching Free Water Protocol : Needs further teaching Ice Chips : Needs further teaching Oral Care : Needs further teaching JOSSUE RODRÍGUEZ SLP - 11/22/2018 9:34 EDT PLAYBACK OPERATOR Education Assessment Grid 2 Speech Language Pathology Treatment Plan : Needs further teaching JOSSUE RODRÍGUEZ SLP - 11/22/2018 9:[address] [place] PLAYBACK OPERATOR Charges FEES : 1 JOSSUE RODRÍGUEZ SLP - 11/22/2018 9:34 EDT documented in this encounter Plan of Treatment Not on file documented as of this encounter Visit Diagnoses Not on filedocumented in this encounter
--- OUTSIDE RECORDS SUMMARY | 2025-05-29 08:56 | XMS_ITS | Encounter Summary ---
Author Organization [employer] ([place], [place], [place], [place]) Address [address] [place] [address] Care Team Providers Care Screen Printing Machine Operator Helper Name Role Phone Unavailable Primary Care Provider Unavailabl e Encounter Details Date Type Department Care Team (Late st Contact Info) Description 11/22/2018 Transcribed Document [facility] [place] [address] [place] [address] ProviderErika MD [address] [place] [address] Social History Tobacco Use Types [...] On: 11/22/2018 13:55 EDT by ODALYS FAULKNER Rn-Senior Clinical Data ManagerLab Manager Note Care Management Note : 11/22/18 Pt has had a cva. Spoke to his Connie and son Sumeet at the bedside. Pt is lfacid on the left side. Discussed the need for STR and they decided on [facility]. Sent pt info via [employer] to [facility]. CF Documentation Status Complete : Yes ODALYS FAULKNER Rn-Senior Clinical Data Manager - 11/22/2018 13:55 EDT Patient History Emergency Contact #1 : Connie Emergency Contact #1 (H) Emergency Contact #1 Relationship : Emergency Contact #2 : Sheridan Fernando Emergency Contact #2 (C) Emergency Contact #2 Relationship : daughter Living Situation : Home Patient Lives With : Spouse Current Home Treatments : None Patient History Note Report : ODALYS FAULKNER Rn-Senior Clinical Data Manager - 11/17/18 11:25:13 11/17/18 Pt sleeping and [...] when pt is awake. CF ODALYS FAULKNER Rn-Senior Clinical Data Manager - 11/22/2018 13:55 EDT Electronically signed by [facility], [facility] Conversion Laboratory Inspector Cerner at 12/08/2022 12:32 PM CDT documented in this encounter Plan of Treatment Not on file documented as of this encounter Visit Diagnoses Not on filedocumented in this encounter
--- OUTSIDE RECORDS SUMMARY | 2025-05-29 08:56 | XMS_ITS | Encounter Summary ---
Author Organization [employer] ([place], [place], [place], [place]) Address [address] [place] [address] Care Team Providers Care Entry Level Web Developer Name Role Phone Unavailable Primary Care Provider Unavailabl e Encounter Details Date Type Department Care Team (Late st Contact Info) Description 11/17/2018 Transcribed Document [facility] Cardiology [address] [place] [address] Lc Armendariz MD [address] [facility] [address] [place] [address] Social History Tobacco Use Types [...] LC ARMENDARIZ MD-CAR Basic Information PCP: Sanjuana Espnio MD Computer Programming Manager: Porfirio Combs MD Chief Complaint s/p bioprosthetic [...] list: All Problems Aneurysm, thoracic aortic / 6092953849 / Confirmed Aortic valve insufficiency / 842068750 / Confirmed Arthritis / 9466736 / Confirmed At risk for sleep apnea / 14835954 / Confirmed CAD (coronary artery disease) / 31902989 / Confirmed Disorder of prostate ( enlarged) / 25014990 / Confirmed HTN - Hypertension / 7342445131 / Confirmed Hypothyroidism / 72604306 / Confirmed Frequent urination / 572053015 / Confirmed Cancer of skin of face / 2083297756 / Confirmed Nocturia / 808859810 / Confirmed Restless legs syndrome / 91331317 / Confirmed Prostate stricture / 42058471 / Confirmed Resolved: Bladder stone / 280034367 Canceled: Aneurysm / 4199746912 Canceled: Thyroid disease / 835606851 Histories No education data available. Social & Psychosocial Habits Alcohol 04/16/2017 Alcohol Use History, Social Habits No Alcohol Use in Last Twelve Months No Home/Environment 11/15/2018 Lives with: Spouse Living situation: Home/Independent Substance Abuse 04/16/2017 Recreational Drug Use History No Recreational Drug Use Last 12 Months No Tobacco 04/16/2017 Smoking Status Never smoker Past Medical History: Active HTN - Hypertension (9151617528) Hypothyroidism (71267929) Family History: Entire family history is negative. [...] No tenderness, No swelling. Integumentary: Warm, Dry, [place]. Neurologic: Not alert, Not oriented. Psychiatric: not [...] 11/17/2018 05:17 Radiology Results (Last 48 hours) [id number] -- 11/16/2018 06:45 CR Chest 2 Vws [...] Anasogastric tube extends below the diaphragm. Left-sided [place]-Ganzcatheter tip is in the left main pulmonary [...] day.FINDINGS: The heart is normal in size. [place]-Jovanna catheter tips in theleft pulmonary artery. There [...]
--- OUTSIDE RECORDS SUMMARY | 2025-05-29 08:56 | XMS_ITS | Encounter Summary ---
Author Organization [employer] ([place], [place], [place], [place]) Address [address] [place] [address] Care Team Providers Care Explosives Truck Driver Name Role Phone Unavailable Primary Care Provider Unavailabl e Encounter Details Date Type Department Care Team (Late st Contact Info) Description 11/21/2018 Transcribed Document [facility] [place] [address] [place] [address] ProviderErika MD [address] [place] [address] Social History Tobacco Use Types [...] MRI to confirm. -continue asa, statin -Continue PT/OT/DESIGNER -control blood pressure, aim for whatever is [...] Tab, Oral, At Bedtime saliva substitutes, 1 [place], Buccal, Q2H, PRN Senokot, 17.2 mg= 2 [...]
--- OUTSIDE RECORDS SUMMARY | 2025-05-29 08:56 | XMS_ITS | Encounter Summary ---
Author Organization [employer] ([place], [place], [place], [place]) Address [address] [place] [address] Care Team Providers Care Lead Android Developer Name Role Phone Unavailable Primary Care Provider Unavailabl e Encounter Details Date Type Department Care Team (Late st Contact Info) Description 11/17/2018 Transcribed Document [facility] [place] Family Medicine [address] [place] [address] ProviderErika MD [address] [place] [address] Social History Tobacco Use Types [...] Source : Measured Height Entry Format : [place] Height, Feet : 6 ft Height, Inches [...]
--- OUTSIDE RECORDS SUMMARY | 2025-05-29 08:56 | XMS_ITS | Encounter Summary ---
Author Organization [employer] ([place], [place], [place], [place]) Address [address] [place] [address] Care Team Providers Care Electrical Design Engineer Name Role Phone Unavailable Primary Care Provider Unavailabl e Encounter Details Date Type Department Care Team (Late st Contact Info) Description 11/21/2018 Transcribed Document [facility] [place] [address] [place] [address] ProviderErika MD [address] [place], [place] [id number] Social History Tobacco Use Types Packs/Day Years [...] Bedtime, Routine HEENT saliva substitutes - 1 [place], Buccal, Liquid, Q2H, PRN for Other (See [...] Radiology results Radiology Results (Last 48 hours) [id number] -- 11/16/2018 06:45 CR Chest 1 Vw Portable (11/20/2018 04:12) Result: PORTABLE CHEST 11/20/2018 4:00 AMHISTORY: Shortness of breathCOMPARISON: 1 day priorFINDINGS: A [place]-Jovanna catheter tip terminates in the SVC. The [place]-Ganzcatheter has been retracted. The cardiac silhouette is [...]
--- OUTSIDE RECORDS SUMMARY | 2025-05-29 08:56 | XMS_ITS | Encounter Summary ---
Author Organization [employer] ([place], [place], [place], [place]) Address [address] [place] [address] Care Team Providers Care Forester Silviculture Name Role Phone Unavailable Primary Care Provider Unavailabl e Encounter Details Date Type Department Care Team (Late st Contact Info) Description 11/22/2018 Transcribed Document [facility] [place] [address] [place] [address] ProviderErika MD [address] [place] [address] Social History Tobacco Use Types [...] Source : Measured Height Entry Format : [place] Height, Feet : 6 ft Height, Inches : 1 Inch Clinical Height : 185.42 cm Amanda Sigala RN - 11/22/2018 6:08 EDT Amanda Sigala RN - 11/22/2018 6:15 EDT documented in this encounter Plan of Treatment Not on file documented as of this encounter Visit Diagnoses Not on filedocumented in this encounter
--- OUTSIDE RECORDS SUMMARY | 2025-05-29 08:56 | XMS_ITS | Encounter Summary ---
Author Organization [facility] ([place], [place], [place], [place]) Address [address] [place] [address] Care Team Providers Care Pediatric Genetic Counselor Name Role Phone Unavailable Primary Care Provider Unavailabl e Encounter Details Date Type Department Care Team (Late st Contact Info) Description 11/22/2018 Transcribed Document [facility] [place] [address] [place] [address] ProviderErika MD [address] [place] [id number] Social History Tobacco Use Types Packs/Day Years [...] of Systems Respiratory - wearing 02 by IN GI - has NG tube. Objective Vitals [...] Tab, Oral, At Bedtime saliva substitutes, 1 [place], Buccal, Q2H, PRN Senokot, 17.2 mg= 2 [...]
--- OUTSIDE RECORDS SUMMARY | 2025-05-29 08:56 | XMS_ITS | Encounter Summary ---
Author Organization [employer] ([place], [place], [place], [place]) Address [address] [place] [address] Care Team Providers Care Porter Luggage Name Role Phone Unavailable Primary Care Provider Unavailabl e Encounter Details Date Type Department Care Team (Late st Contact Info) Description 11/21/2018 Transcribed Document [facility] [place] [address] [place] [address] ProviderErika MD [address] [place] [address] Social History Tobacco Use Types Packs/Day Years Used Date Smoking Tobacco: Never Assessed Sex and Gender Information Value Date Recorded Sex Assigned at Not on file Legal Sex Male 5:03 PM CDT Gender Identity Not on file Sexual Orientation Not on file documented as of this encounter Miscellaneous Notes * Cerner Conversion Note - Historical ProviderMD - 11/21/2018 2:00 AM CDT Cartridge Feeder Details Entered On: 11/21/2018 1:40 EDT Performed [...] signed by Christina Saini Conversion [employer] Technology Teacher Felipe at 12/08/2022 12:39 PM CDT documented in this encounter Plan of Treatment Not on file documented as of this encounter Visit Diagnoses Not on filedocumented in this encounter
--- OUTSIDE RECORDS SUMMARY | 2025-05-29 08:56 | XMS_ITS | Encounter Summary ---
Author Organization [employer] ([place], [place], [place], [place]) Address [address] [place] [address] Care Team Providers Care Pocket Setter Lockstitch Name Role Phone Unavailable Primary Care Provider Unavailabl e Encounter Details Date Type Department Care Team (Late st Contact Info) Description 11/17/2018 Transcribed Document [facility] [place] [address] [place] [address] ProviderErika MD [address] [place] [address] Social History Tobacco Use Types [...] 11/17/2018 11:22 EDT by ODALYS FAULKNER Rn-Director Of Home EconomicsRadial Drill Operator For Plastic Note Documentation Status Complete : Yes ODALYS FAULKNER Rn-Director Of Home Economics - 11/17/2018 11:22 EDT Patient History Information [...] pt is awake. CF ODALYS FAULKNER, Rn-Director Of Home Economics - 11/17/2018 11:22 EDT documented in this encounter Plan of Treatment Not on file documented as of this encounter Visit Diagnoses Not on filedocumented in this encounter
--- OUTSIDE RECORDS SUMMARY | 2025-05-29 08:57 | XMS_ITS | Encounter Summary ---
Author Organization [employer] ([place], [place], [place], [place]) Address [address] [place] [address] Care Team Providers Care Data Center Operator Name Role Phone Unavailable Primary Care Provider Unavailabl e Encounter Details Date Type Department Care Team (Late st Contact Info) Description 11/22/2018 Transcribed Document [facility] [place] [address] [place] [address] ProviderErika MD [address] [place], [place] [phone] Social History Tobacco Use Types Packs/Day Years [...] 1940 Associated Diagnoses: CAD (coronary artery disease), [place] coronary artery; Thrombocytopenia; Coronary artery disease; HTN [...] S1, S2, No edema. Integumentary: Warm, Dry, [place], incision is C/D/I. Neurologic: Alert, left sided [...] Prophylaxis: SCDs Diagnosis CAD (coronary artery disease), [place] coronary artery - Admitting, Medical. Thrombocytopenia - Working, Medical. Coronary artery disease - Discharge, Medical. HTN (hypertension) - Pre-Op Diagnosis, Medical. Hypothyroidism - Pre-Op Diagnosis, Medical. Aortic insufficiency - Admitting, Medical. Aortic insufficiency - Discharge, Medical. RLS (restless legs syndrome) - Pre-Op Diagnosis, Medical. Thoracic ascending aortic aneurysm - Admitting, Medical. Thoracic ascending aortic aneurysm - Discharge, Medical. Electronically signed by Parveen, [facility] Conversion Check Processing Clerk Cerner at 12/08/2022 12:25 PM CDT documented in this encounter Plan of Treatment Not on file documented as of this encounter Visit Diagnoses Not on filedocumented in this encounter
--- OUTSIDE RECORDS SUMMARY | 2025-05-29 08:57 | XMS_ITS | Encounter Summary ---
Author Organization [employer] ([place], [place], [place], [place]) Address [address] [place] [address] Care Team Providers Care Pants Presser Automatic Name Role Phone Unavailable Primary Care Provider Unavailabl e Encounter Details Date Type Department Care Team (Late st Contact Info) Description 11/29/2018 Transcribed Document [facility] [place] Family Medicine [address] [place] [address] ProviderErika MD [address] [place] [address] Social History Tobacco Use Types [...] - 11/29/2018 2:51 PM CDT [facility] Endo IntraOp Summary Primary Physician: RIGOBERTO YU MD Finalized Date/Time: 11/29/18 15:07:06 Pt. Name: DOTTIE VILLASENOR /Sex: 1940 Male Med Rec #: [id number] Physician: JULIO CESAR CARVALHO MD-[facility] Financial #: [id number] Pt. Type: I Room/Bed: [facility]/ Admit/Disch: 11/16/18 06:45:00 - Institution: [facility] Endo - Case Attendance Entry 1 Entry 2 Entry 3 Case Attendee RIGOBERTO YU MD Reynolds, Ashley N, RN JONNATHAN LUBIN Role Performed Surgeon/Proceduralist, Laboratory Coordinator, First Scrub, First First Time In 11/29/18 [...] Patino Crna CORNEA, MIHAELA, MD Role Performed DERMATOLOGY SALES REPRESENTATIVE/Nurse Project Construction Manager Anesthesiologist of Record Time In 11/29/18 14:47:00 11/29/18 14:47:00 Time Out 11/29/18 15:09:00 11/29/18 15:09:00 Procedure EGD w Control Bleeding EGD w Control Bleeding Other Attendee Superficial Wound Closed By: Last Modified By: Gem Parekh RN Reynolds, Ashley N, RN 11/29/18 15:06:55 11/29/18 15:06:55 [facility] Endo - Case Attendance Audit 11/29/18 15:06:55 Spareribs Trimmer: [email or web address] Modifier: [email or web address] 1 <+> Time Out 1 <*> Procedure EGD w Control Bleeding 2 <+> Time Out 2 <*> Procedure EGD w Control Bleeding 3 <+> Time Out 3 <*> Procedure EGD w Control Bleeding 4 <+> Time Out 4 <*> Procedure EGD w Control Bleeding 5 <+> Time Out 5 <*> Procedure EGD w Control Bleeding 11/29/18 14:59:16 Spareribs Trimmer: [email or web address] Modifier: [email or web address] <+> 1 Procedure <+> 2 Procedure <+> 3 Procedure <+> 4 Procedure <+> 5 Procedure 11/29/18 14:59:14 Spareribs Trimmer: [email or web address] Modifier: [email or web address] 1 <-> Procedure Esophagogastroduodenoscopy 2 <-> Procedure Esophagogastroduodenoscopy 3 <-> Procedure Esophagogastroduodenoscopy 4 <-> Procedure Esophagogastroduodenoscopy 5 <-> Procedure Esophagogastroduodenoscopy 11/29/18 14:49:19 Spareribs Trimmer: [email or web address] Modifier: [email or web address] 1 <*> Procedure Esophagogastroduodenoscopy 2 <+> Time In 2 <*> Procedure Esophagogastroduodenoscopy 3 <+> Time In 3 <*> Procedure Esophagogastroduodenoscopy 4 <+> Time In 4 <*> Procedure Esophagogastroduodenoscopy 5 <+> Time In 5 <*> Procedure Esophagogastroduodenoscopy 11/29/18 14:48:29 Spareribs Trimmer: [email or web address] Modifier: [email or web address] 1 <+> Time In 1 <*> Procedure Esophagogastroduodenoscopy <+> 2 Case Attendee <+> 2 Role Performed <+> 2 Procedure <+> 3 Case Attendee <+> 3 Role Performed <+> 3 Procedure <+> 4 Case Attendee <+> 4 Role Performed <+> 4 Procedure <+> 5 Case Attendee <+> 5 Role Performed <+> 5 Procedure [facility] Endo - Case times Entry 1 Patient In Room Time 11/29/18 14:47:00 Out Room Time 11/29/18 15:09:00 Anesthesia Start Time 11/29/18 14:47:00 Stop Time 11/29/18 15:09:00 Surgery / Procedure Times Start Time 11/29/18 14:51:00 Stop Time 11/29/18 15:06:00 Last Modified By: Gem Parekh RN 11/29/18 15:06:53 [facility] Endo - Case times Audit 11/29/18 15:06:53 Spareribs Trimmer: [email or web address] Modifier: [email or web address] <+> 1 Out Room Time <+> 1 Stop Time <+> 1 Stop Time 11/29/18 14:51:51 Spareribs Trimmer: [email or web address] Modifier: [email or web address] <+> 1 Start Time [facility] Endo - Delays Entry 1 Delay Reason Other Duration 0 Minute(s) Last Modified By: Gem Parekh RN 11/29/18 14:48:33 [facility] Endo - Departure from OR Entry 1 Integumentary Assessment Integumentary WDL Assessment WDL Transfer/Handoff Transfer to PACU Phase I Handoff Method Bedside/Face to face Post-op Transport Stretcher/Gurney Via Patient Transport Gem Parekh RN, Accompanied by Cassie Patino Crna Last Modified By: Gem Parekh RN 11/29/18 14:48:36 [facility] Endo - Endoscopy Details Entry 1 Abdomen Procedure Soft, Non-Tender Assessment Procedure Abdomen 11/29/18 14:47:00 Assessment D/T Radio Frequency Ablation Last Modified By: Gem Parekh RN 11/29/18 14:48:41 [facility] Endo - Fire Risk Assessment Entry 1 [...] Modified By: Gem Parekh RN 11/29/18 14:48:48 [facility] Endo - General Case Manager Photography 1 Case Information OR Endo 01 [facility] Case Level 1 Room Verified Yes Wound Class II - Clean-Contaminated Specialty SN Gastroenterology Anesthesia Type MAC ASA Class 4 Diagnosis Preop Diagnosis GI Bleed Postop Same As Preop Yes Postop Diagnosis GI Bleed Last Modified By: Gem Parekh RN 11/29/18 14:48:58 [facility] Endo - Implant Log Entry 1 Entry 2 Type Implant (Synthetic) Implant (Synthetic) Implant Log Implant Type Tissue Implant Type Implant CLIP II RESOLUTION CLIP II RESOLUTION Identification [id number] Description Implant Quantity 1 1 Implant Site Implant Identification Model Number Implant Identification Serial Number Implant [id number] Identification Lot Number Implant [place] Sci:Interv [place] Sci:Interv Identification Cardiology Cardiology Outreach Liaison Name: Implant [id number] Identification Catalog Number Implant Size Implant Has an Yes Yes Expiration Date Implant Expiration 09/05/21 07/10/21 Date Wasted Radioactive Material Time Implanted Tissue Implant Continue for Tissue Implant Documentation Tissue Identification Number Graft Prep Per Outreach Liaison Instructions: Tissue Preparation Method: Reconstitution Solution: Reconstitution Solution Lot Number Reconstitution Solution Expiration Date: Thawing Solution Thawing Solution Lot Number Thawing Solution Expiration Date Preparation Materials, Other Preparation Materials, Other Lot Number Preparation Materials, Other Expiration Date Tissue Prepared/Processed By Outreach Liaison Paperwork Completed Implant Type Comment clip failed Last Modified By: Gem Parekh RN Reynolds, Ashley N, RN 11/29/18 15:00:27 11/29/18 15:06:45 [facility] Endo - Implant Log Audit 11/29/18 15:06:45 Spareribs Trimmer: [email or web address] Modifier: [email or web address] 2 <*> Implant Identification Description CLIP II RESOLUTION [id number] <+> Implant Type Comment 11/29/18 15:04:27 Spareribs Trimmer: [email or web address] Modifier: [email or web address] <+> 2 Implant Identification Description <+> 2 Implant Identification Lot Number <+> 2 Implant Identification Outreach Liaison Name: <+> 2 Implant Expiration Date <+> 2 Implant Quantity <+> 2 Implant Identification Catalog Number <+> 2 Implant Has an Expiration Date <+> 2 Type [facility] Endo - Intraoperative Assessment Entry 1 Valid History / Yes Physical in Chart Preoperative Yes Checklist Reviewed/Evaluated Patient is Latex No Sensitive Level of WDL Consciousness (WDL = Alert, Oriented to Person, Place, and Time) Last Modified By: Gem Parekh RN 11/29/18 14:49:01 [facility] Endo - Intraoperative Equipment Entry 1 Entry [...] Ashley N, RN 11/29/18 14:49:07 11/29/18 14:56:48 [facility] Endo - Intraoperative Equipment Audit 11/29/18 14:56:48 Spareribs Trimmer: [email or web address] Modifier: [email or web address] <+> 2 Photo <+> 2 Video <+> 2 Electrocardiogram (ECG) Electrode Placement <+> 2 Blood Pressure Location <+> 2 Pulse Oximeter Probe Site <+> 2 Flexible Endoscopes Used <+> 2 Scope Serial Number/Identification Number <+> 2 Type [facility] Endo - Patient Positioning Entry 1 Procedure [...] Modified By: Gem Parekh RN 11/29/18 14:59:16 [facility] Endo - Patient Positioning Audit 11/29/18 14:59:16 Spareribs Trimmer: [email or web address] Modifier: [email or web address] <+> 1 Procedure 11/29/18 14:59:14 Spareribs Trimmer: [email or web address] Modifier: [email or web address] 1 <-> Procedure Esophagogastroduodenoscopy [facility] Endo - Sign In Entry 1 Patient, Site, Yes Procedure Identified Surgical Consent Yes Confirmed Surgical Site N/A Marked by person performing procedure Airway Hypothermia Risk No Warming Measures No Taken Last Modified By: Gem Parekh RN 11/29/18 14:49:18 [facility] Endo - Sign Out Entry 1 RN [...] Modified By: Gem Parekh RN 11/29/18 15:07:01 [facility] Endo - Surgical Procedures Entry 1 Procedure EGD w Control Bleeding Primary Procedure Yes Primary Surgeon RIGOBERTO YU MD Start 11/29/18 14:51:00 Stop 11/29/18 15:06:00 Anesthesia Type MAC Specialty SN Gastroenterology Wound Class II - Clean-Contaminated Last Modified By: Gem Parekh RN 11/29/18 15:07:04 [facility] Endo - Surgical Procedures Audit 11/29/18 15:07:04 Spareribs Trimmer: [email or web address] Modifier: [email or web address] <+> 1 Stop 11/29/18 14:59:15 Spareribs Trimmer: [email or web address] Modifier: [email or web address] 1 <*> Procedure Esophagogastroduodenoscopy 1 <+> Start 11/29/18 14:49:23 Spareribs Trimmer: [email or web address] Modifier: [email or web address] 1 <*> Procedure Esophagogastroduodenoscopy 1 <+> Specialty [facility] Endo - Time Out Entry 1 Procedure [...] Modified By: Gem Parekh RN 11/29/18 14:59:17 [facility] Endo - Time Out Audit 11/29/18 14:59:17 Spareribs Trimmer: [email or web address] Modifier: [email or web address] <+> 1 Procedure to be Performed 11/29/18 14:59:15 Spareribs Trimmer: [email or web address] Modifier: [email or web address] 1 <-> Procedure to be Performed Esophagogastroduodenoscopy Case Comments <None> Finalized By: Gem Parekh RN Document Signatures Signed By: Gem Parekh RN 11/29/18 15:07 Electronically signed by Parveen [facility] Conversion Research Soil Scientist Cerner at 12/08/2022 12:33 PM CDT documented in this encounter Plan of Treatment Not on file documented as of this encounter Visit Diagnoses Not on filedocumented in this encounter
--- OUTSIDE RECORDS SUMMARY | 2025-05-29 08:57 | XMS_ITS | Encounter Summary ---
Author Organization [employer] ([place], [place], [place], [place]) Address [address] [place] [address] Care Team Providers Care Maintenance Helper Utility Engineer Name Role Phone Unavailable Primary Care Provider Unavailabl e Encounter Details Date Type Department Care Team (Late st Contact Info) Description 11/29/2018 Transcribed Document [facility] [place] Family Medicine [address] [place] [address] ProviderErika MD [address] [place] [address] Social History Tobacco Use Types Packs/Day Years Used Date Smoking Tobacco: Never Assessed Sex and Gender Information Value Date Recorded Sex Assigned at Not on file Legal Sex Male 5:03 PM CDT Gender Identity Not on file Sexual Orientation Not on file documented as of this encounter Miscellaneous Notes * Cerner Conversion Note - Erika ProviderMD - 11/29/2018 2:51 PM CDT [facility] Endo PACU Summary Primary Physician: RIGOBERTO YU MD Finalized Date/Time: 11/29/18 15:36:07 Pt. Name: VILLASENOR DOTTIE Ladan /Sex: 1940 Male Med Rec #: [id number] Physician: JULIO CESAR CARVALHO MD-[facility] Financial #: [id number] Pt. Type: I Room/Bed: 330/1 Admit/Disch: 11/16/18 06:45:00 - Institution: [facility] Endo PACU Case Times Entry 1 In PACU I 11/29/18 15:10:00 Ready for PACU 11/29/18 15:35:00 Discharge Discharge from PACU 11/29/18 15:35:00 I Last Modified By: Destiney Mckenzie RN 11/29/18 15:35:51 [facility] Endo PACU Case Times Audit 11/29/18 15:35:51 Research Instructor: [email or web address] Modifier: [email or web address] <+> 1 Ready for PACU Discharge <+> 1 Discharge from PACU I Finalized By: Destiney Mckenzie RN Document Signatures Signed By: Destiney Mckenzie RN 11/29/18 15:36 Electronically signed by Parveen [facility] Conversion Entry Level Accounting Clerk Cerner at 12/08/2022 12:16 PM CDT documented in this encounter Plan of Treatment Not on file documented as of this encounter Visit Diagnoses Not on filedocumented in this encounter
--- OUTSIDE RECORDS SUMMARY | 2025-05-29 08:57 | XMS_ITS | Encounter Summary ---
Author Organization [employer] ([place], [place], [place], [place]) Address [address] [place] [address] Care Team Providers Care Asphalt Still Operator Name Role Phone Unavailable Primary Care Provider Unavailabl e Encounter Details Date Type Department Care Team (Late st Contact Info) Description 11/22/2018 Transcribed Document [facility] [place] [address] [place] [address] ProviderErika MD [address] [place], [...] unspecified 11/17/2018 00:00 Atherosclerotic heart disease of [place] coronary artery without angina pectoris 11/17/2018 00:00 Essential (primary) hypertension 11/17/2018 00:00 Hypothyroidism, unspecified 11/17/2018 00:00 Nonrheumatic aortic (valve) insufficiency 11/17/2018 00:00 Restless legs syndrome 11/17/2018 00:00 Thoracic aortic aneurysm, without rupture 11/17/2018 00:00 Thrombocytopenia, unspecified 11/16/2018 00:00 Atherosclerotic heart disease of [place] coronary artery without angina pectoris 11/16/2018 00:00 [...] TARI MOORE OTR/L 11/23/2018 15:10 EDT Hand Translational Specialist Test : trace with digits TARI MOORE [...] TARI MOORE OTR/Ginny - 11/23/2018 15:10 EDT Detention Goals, OT Self Feeding LTG Grid Goal [...]
--- OUTSIDE RECORDS SUMMARY | 2025-05-29 08:57 | XMS_ITS | Encounter Summary ---
Author Organization [employer] ([place], [place], [place], [place]) Address [address] [place] [address] Care Team Providers Care Marking Clerk Name Role Phone Unavailable Primary Care Provider Unavailabl e Encounter Details Date Type Department Care Team (Late st Contact Info) Description 11/30/2018 Transcribed Document [facility] [place] [address] [place] [address] ProviderErika MD [address] [place], [place] [id number] Social History Tobacco Use Types Packs/Day Years [...] 1940 Associated Diagnoses: CAD (coronary artery disease), [place] coronary artery; Thrombocytopenia; Coronary artery disease; HTN [...] Non-distended, Normal bowel sounds. Integumentary: Warm, Dry, [place], incision is C/D/I. Neurologic: Alert, left sided [...] (Current Encounter/Past 24 Hours) PT 27.4 Second(s) UT 11/30/2018 07:23 INR 2.6 UT 11/30/2018 07:23 . Impression and Plan Plan: [...] discharge- CM has sent information to [facility] -Transfer to [facility] 11/24/18 -POD#8 -Awaiting transfer to [facility] -Awaiting response from [facility] 11/25/18 -POD#9 -left upper extremity venous doppler - doppler this am positive for LUE DVT - will start coumadin and heparin bridge -awaiting [facility] 11/26/18 -POD#10 -Heparin drip and coumadin for LUE DVT -Left arm swelling improved today -INR 1.1 today, INR goal 2-3 -Possibly transfer to [facility] this weekend 11/27/18: -POD#11 -Left arm swelling continues to improve -Continues on Coumadin and heparin bridge -INR: 1.4 (1.1 yesterday) goal: 2 to 3 -[facility] soon,? Tomorrow 11/28/18: -POD#12 -BP in 70s-80s this AM -He had a dark black stool and has had a couple of fluid boluses -Heparin was D/C'd and his INR is 2.0 this AM (on coumadin 5mg qd) -Hct is down to 23.6 -GI med has been consulted and he is to undergo EGD -Also some blood has been set up. -Transferred to [facility] 11/29/18: -POD#13 -Upper endoscopy showed [...] D/C due to GI bleed. -Transfer to [facility] 11/30/18 POD # 14 EGD yesterday - duodenal ulceration with clot, no active bleeding and no intervention performed INR trending down, off coumadin and heparin Speech signed off yesterday - speech and cognition back to baseline Watch INR and [facility] upon discharge EF 55-60% per echo 11/16/18 DVT Prophylaxis: SCDs Diagnosis CAD (coronary artery disease), [place] coronary artery - Admitting, Medical. Thrombocytopenia - [...] - Discharge, Medical. Electronically signed by Interface, [facility] Conversion Death Clearance Coordinator Cerner at 12/08/2022 12:34 PM CDT documented in this encounter Plan of Treatment Not on file documented as of this encounter Visit Diagnoses Not on filedocumented in this encounter
--- OUTSIDE RECORDS SUMMARY | 2025-05-29 08:57 | XMS_ITS | Encounter Summary ---
Author Organization [employer] ([place], [place], [place], [place]) Address [address] [place] [address] Care Team Providers Care Drum Straightener Name Role Phone Unavailable Primary Care Provider Unavailabl e Encounter Details Date Type Department Care Team (Late st Contact Info) Description 11/22/2018 Transcribed Document [facility] [place] Family Medicine [address] [place] [address] ProviderErika MD [address] [place] [address] Social History Tobacco Use Types [...]
--- OUTSIDE RECORDS SUMMARY | 2025-05-29 08:57 | XMS_ITS | Encounter Summary ---
Author Organization [employer] ([place], [place], [place], [place]) Address [address] [place] [address] Care Team Providers Care Bioinformatics Team Member Name Role Phone Unavailable Primary Care Provider Unavailabl e Encounter Details Date Type Department Care Team (Late st Contact Info) Description 11/22/2018 Transcribed Document [facility] [place] Family Medicine [address] [place] [address] ProviderErika MD [address] [place] [address] Social History Tobacco Use Types [...] at goal rate. Did have BM yesterday. CABBAGE SALTER okayed pt for po diet this am- follow up after breakfast and pt had eating 50% of meal. Pt stated he would enjoy ensure as well. Spoke with RN about observing 1-2 more meals before removing corpak and speaking with MD as well. 11/18: Check on: Pt is on Osmolite 1.5 @ 50m/hr + 1 [id number] daily advancing toward goal of 60ml/hr + 1 [id number] daily. No CABBAGE SALTER consult noted, discussed if any concern for [...] Support: Jevity 1.5 @ 60ml/hr + 1 [id number] daily, HT: 185cm (6'1) ADMIT WT: 79kg/174# Current Wt: 81.6kg (11/17), 82.4kg (11/18) , 84.3 kg (11/22) BMI: 23 IBW: 79kg/100% EST NEEDS: 7815-9149 kcal (25-30kcal/kg), 95g pro (1.2g/kg) DAVION GREEN [...] 11/22/2018 12:04 EDT Electronically signed by Parveen, [facility] Conversion Hotel Security Officer Cerner at 12/08/2022 12:11 PM CDT documented in this encounter Plan of Treatment Not on file documented as of this encounter Visit Diagnoses Not on filedocumented in this encounter
--- OUTSIDE RECORDS SUMMARY | 2025-05-29 08:57 | XMS_ITS | Encounter Summary ---
Author Organization [employer] ([place], [place], [place], [place]) Address [address] [place] [address] Care Team Providers Care Veneer Stock Grader Name Role Phone Unavailable Primary Care Provider Unavailabl e Encounter Details Date Type Department Care Team (Late st Contact Info) Description 11/29/2018 Transcribed Document [facility] [place] Family Medicine [address] [place] [address] ProviderErika MD [address] [place] [address] Social History Tobacco Use [...]
--- OUTSIDE RECORDS SUMMARY | 2025-05-29 08:57 | XMS_ITS | Encounter Summary ---
Author Organization [employer] ([place], [place], [place], [place]) Address [address] [place] [address] Care Team Providers Care Greenhouse Assistant Name Role Phone Unavailable Primary Care Provider Unavailabl e Encounter Details Date Type Department Care Team (Late st Contact Info) Description 11/29/2018 Transcribed Document [facility] [place] [address] [place] [address] ProviderErika MD [address] [place] [address] Social History Tobacco Use Types [...] Electronically signed by Christina Saini Conversion Manager Environmental Affairs Cerner at 12/08/2022 12:13 PM CDT documented in this encounter Plan of Treatment Not on file documented as of this encounter Visit Diagnoses Not on filedocumented in this encounter
--- OUTSIDE RECORDS SUMMARY | 2025-05-29 08:57 | XMS_ITS | Encounter Summary ---
Author Organization [employer] ([place], [place], [place], [place]) Address [address] [place] [address] Care Team Providers Care Program Management Specialist Name Role Phone Unavailable Primary Care Provider Unavailabl e Encounter Details Date Type Department Care Team (Late st Contact Info) Description 11/30/2018 Transcribed Document [facility] [place] [address] [place] [address] ProviderErika MD [address] [place] [address] Social History Tobacco Use Types [...] 2 Tab, Oral, BID saliva substitutes, 1 [place], Buccal, Q2H, PRN Senokot, 17.2 mg= 2 Tab, Oral, BID Synthroid, 50 mcg= 2.5 mL, IV Push, Q48H Zofran, 4 mg= 2 mL, IV Push, Q4H, PRN documented in this encounter Plan of Treatment Not on file documented as of this encounter Visit Diagnoses Not on filedocumented in this encounter
--- OUTSIDE RECORDS SUMMARY | 2025-05-29 08:57 | XMS_ITS | Encounter Summary ---
Author Organization [employer] ([place], [place], [place], [place]) Address [address] [place] [address] Care Team Providers Care Retort Pre Cooker Name Role Phone Unavailable Primary Care Provider Unavailabl e Encounter Details Date Type Department Care Team (Late st Contact Info) Description 11/29/2018 Transcribed Document [facility] [place] [facility] [place] [address] ProviderErika MD [address] [place], [place] [phone] Social History Tobacco Use Types Packs/Day Years [...] EDT) Electronically signed by Christina Saini Conversion Route Sales Delivery Driver Cerner at 12/08/2022 12:28 PM CDT documented in this encounter Plan of Treatment Not on file documented as of this encounter Visit Diagnoses Not on filedocumented in this encounter
--- OUTSIDE RECORDS SUMMARY | 2025-05-29 08:57 | XMS_ITS | Encounter Summary ---
Author Organization [facility] ([place], [place], [place], [place]) Address [address] [place] [address] Care Team Providers Care Flat Folder Name Role Phone Unavailable Primary Care Provider Unavailabl e Encounter Details Date Type Department Care Team (Late st Contact Info) Description 11/30/2018 Transcribed Document [facility] [place] [address] ProviderErika MD [address] [place] [address] Social History Tobacco Use [...] Jose MD - 11/30/2018 3:31 PM CDT [address] [address] Patient Copy Patient Information: Name: DOTTIE VILLASENOR Current Date: 11/30/2018 15:31:38 : 1940 Patient Address: [address] [place] [phone] Patient Attending Physician: JULIO CESAR CARVALHO MD-[facility] Primary Care Provider: DEMETRICE ARMIJO NP-[facility] Primary Care Provider Discharge Diagnosis: Acute blood loss anemia; Aortic insufficiency; Coronary artery disease; GI bleed; LUE DVT (deep venous thrombosis); Right MCA CVA (cerebral vascular accident); Thoracic ascending aortic aneurysm Weight on Admission: 174 lb, 5 oz Weight at Discharge: 164 lb, 1 oz Comment: Follow-up Instructions: With: Address: When: JOHN BOWEN [address], [address] [place] [address] Business (1) Within 6 weeks Comments: Patient should call for a follow up appointment with [facility]. Discharge Instructions: Driving after Discharge: Do not drive, Other: No driving or operating heavy machinery until released by a physician. Community Services: Outpt Cardiac Rehab [facility] [phone] They will call pt w/ appt time. [...] 09/17/2005 Document Revised: 01/15/2017 Document Reviewed: 02/10/2014 [employer] Interactive Patient Education ? 2017 [employer] CIGARETTE SMOKING: The facts are clear, cigarette smoking will shorten your life. Smoking can cause many illnesses along the way. As a healthcare provider, we recommend that you stop smoking. Assistance with quitting is available by contacting 9-371-YZZS-NOW. This is a free resource providing counseling, [...] Be sure to sign up for the [facility] patient portal, which gives you 16/03 access to your medical information ??? including these discharge instructions ??? using your computer, smartphone, or tablet. Just go to [facility] to get started. Questions? Call . [facility] would like to thank you for allowing us to assist you with your healthcare needs. HAMILTON Jarvis ROBERT H, (or financial service representative) have received the above patient education materials/instructions and have verbalized understanding: Patient Signature _ Date/Time Patient Time Clock Repairer Signature (if needed) Date/Time Clinician/Hospital Time Clock Repairer Signature (if needed) Date/Time Electronically signed by Parveen [facility] [employer] Taxonomist Felipe at 12/08/2022 12:33 PM CDT documented in this encounter Plan of Treatment Not on file documented as of this encounter Visit Diagnoses Not on filedocumented in this encounter
--- OUTSIDE RECORDS SUMMARY | 2025-05-29 08:57 | XMS_ITS | Data Portability ---
Author Organization [facility] XIME[facility] CLOSED Address [address] [place] [address] Assessment Encounter Date Assessment Date Assessment LastModified by Organization Details LastModified Time 07/01/2023 07/01/2023 PREOPERATIVE DIAGNOSIS: Bladder calculus, 13 mm. POSTOPERATIVE DIAGNOSIS: Bladder calculus, 13 mm with BPH. PROCEDURE: Cystolitholapaxy with dilation of distal urethra. 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 SURGEON: Cong Villasenor MD ANESTHESIA: General. DRAINS: 18-[place] Islander urethral Michele catheter. INDICATIONS: Patient with previous [...] prepped and draped in normal fashion. A 22-[place] Islander cystoscopy sheath was introduced. Pendulous urethra revealed some difficulty introducing at the meatus. I then used the [place] sounds to dilate the distal urethra up to 24-[place] Islander. I then easily advanced down the urethra. [...] Lab urinalysis , dipstick, auto 2018 019 [facility] Extended Services With [facility], [address], [address] [place] [address], [address], 9 08:09:21 urinalysis , dipstick, auto 2018 019 [facility] Extended Services With [facility], [address], [place] [address], [place], [address], 9 14:02:35 Referral None recorded. Procedures None recorded. Surgeries None recorded. Imaging None recorded. Medication Orders trospium ER 60 mg capsule,ex tended release 24 hr [address] [facility] [address] [place], [address], 3 14:33:52 alfuzosin ER 10 mg tablet,ext ended release 24 hr 2018 019 [facility] [address] [place], [address], 9 15:32:14 Patient TargetsNo targets recorded. Patient Instructions Encounter Date Encounter Id Patient Instructions Last Modified By Organization Details Last Modified Time 05/16/2019 [id number] At this point given the patient's comorbid [...] weeks. [email or web address] Not available 05/16/2019 14:03:13 06/27/2019 [id number] continue medical therapy [email or web address] Not available 06/29/2019 08:09:20 Reason for Referral None Reported. Results Created Date Observation Date Name Description Value Unit Range Abnormal Flag Note LastModifiedBy Organization Detail LastModifiedTime 06/27/2006/27/2019 urina lysis , dipst ick, auto Unknown Analyte Yellow Not Available [facility] Extended Services With [address], [place], [address], 06/27/2019 15:52:46 06/27/2006/27/2019 urina lysis , dipst ick, auto Unknown Analyte Clear Not Available [facility] Extended Services With [place] [address] [facility] [address], [place], [address], 06/27/2019 15:52:46 06/27/20 19 06/27/2019 urina lysis , dipst ick, auto Unknown Analyte 1.010 Not Available [facility] Extended Services With [place] [address], [place], [address], 06/27/2019 15:52:46 06/27/20 19 06/27/2019 urina lysis , dipst ick, auto Unknown Analyte 1.003 - 1.035 Not Available [facility] With [facility] [address], [place], [address], 06/27/2019 15:52:46 06/27/20 19 06/27/2019 urina lysis , dipst ick, auto Unknown Analyte 7.0 Not Available [facility] Extended Services With [place] [address] [facility] [address], [place], [address], 06/27/2019 15:52:46 06/27/20 19 06/27/2019 urina lysis , dipst ick, auto Unknown Analyte 5.0 - 8.0 Not Available [facility] With [facility] [address], [place], [address], 06/27/2019 15:52:46 06/27/20 19 06/27/2019 urina lysis , dipst ick, auto Unknown Analyte Negati ve Not Available [facility] With [facility] [address], [place], [address], 06/27/2019 15:52:46 06/27/20 19 06/27/2019 urina lysis , dipst ick, auto Unknown Analyte Negati ve Not Available [facility] [place] [facility] With [facility] [address], [place], [address], 06/27/2019 15:52:46 06/27/20 19 06/27/2019 urina lysis , dipst ick, auto Unknown Analyte Negati ve Not Available [facility] With [facility] [address], [place], [address], 06/27/2019 15:52:46 06/27/2006/27/2019 urina lysis , dipst ick, auto Unknown Analyte Negati ve Not Available [facility] With [facility] [address], [place], [address], 06/27/2019 15:52:46 06/27/20 19 06/27/2019 urina lysis , dipst ick, auto Unknown Analyte Negtiv e Not Available [facility] With [facility] [address], [place], [address], 06/27/2019 15:52:46 06/27/20 19 06/27/2019 urina lysis , dipst ick, auto Unknown Analyte Negati ve - Trace Not Available [facility] With [facility] [address], [place], [address], 06/27/2019 15:52:46 06/27/20 19 06/27/2019 urina lysis , dipst ick, auto Unknown Analyte Normal Not Available [facility] [place] [facility] Services With [facility] [address], [place], [address], 06/27/2019 15:52:46 06/27/20 19 06/27/2019 urina lysis , dipst ick, auto Unknown Analyte Normal Not Available [facility] [place] [facility] With [facility] [address], [place], [address], 06/27/2019 15:52:46 06/27/20 19 06/27/2019 urina lysis , dipst ick, auto Unknown Analyte Negati ve Not Available [facility] [place] [facility] With [facility] [address], [place], [address], 06/27/2019 15:52:46 06/27/20 19 06/27/2019 urina lysis , dipst ick, auto Unknown Analyte Negati ve Not Available [facility] [place] [facility] With [facility] [address], [place], [address], 06/27/2019 15:52:46 06/27/20 19 06/27/2019 urina lysis , dipst ick, auto Unknown Analyte Normal Not Available [facility] [place] [facility] Services With [facility] [address], [place], [address], 06/27/2019 15:52:46 06/27/20 19 06/27/2019 urina lysis , dipst ick, auto Unknown Analyte Normal - 1mg/dl Not Available [facility] [place] [facility] With [facility] [address], [place], [address], 06/27/2019 15:52:46 06/27/2006/27/2019 urina lysis , dipst ick, auto Unknown Analyte Negati ve Not Available [facility] [place] [facility] With [facility] [address], [place], [address], 06/27/2019 15:52:46 06/27/2006/27/2019 urina lysis , dipst ick, auto Unknown Analyte Negati ve Not Available [facility] [place] [facility] With [facility] [address], [place], [address], 06/27/2019 15:52:46 06/27/20 19 06/27/2019 urina lysis , dipst ick, auto Unknown Analyte Negati ve Not Available [facility] [place] [facility] [address], [place], [address], 06/27/2019 15:52:46 06/27/2006/27/2019 urina lysis , dipst ick, auto Unknown Analyte Negati ve Not Available [facility] With [facility] [address], [place], [address], 06/27/2019 15:52:46 06/27/20 19 06/27/2019 urina lysis , dipst ick, auto Unknown Analyte Clean Catch Not Available [facility] [address] [facility] [address], [place], [address], 06/27/2019 15:52:46 06/27/20 19 06/27/2019 urina lysis , dipst ick, auto Unknown Analyte Automa jamshid Not Available [facility] [address] [facility] [address], [place], [address], 06/27/2019 15:52:46 05/16/20 19 05/16/2019 urina lysis , dipst ick, auto Unknown Analyte Yellow Not Available [facility] [address] [facility] [address], [place], [address], 05/16/2019 13:23:16 05/16/20 19 05/16/2019 urina lysis , dipst ick, auto Unknown Analyte Clear Not Available [facility] [address] [facility] [address], [place], [address], 05/16/2019 13:23:16 05/16/20 19 05/16/2019 urina lysis , dipst ick, auto Unknown Analyte 1.020 Not Available [facility] Extended Services With [facility] [address] [facility] [address], [place], [address], 05/16/2019 13:23:16 05/16/2005/16/2019 urina lysis , dipst ick, auto Unknown Analyte 1.003 - 1.035 Not Available [facility] [place] [facility] With [facility] [address] [facility] [address], [place], [address], 05/16/2019 13:23:16 05/16/20 19 05/16/2019 urina lysis , dipst ick, auto Unknown Analyte 5.0 Not Available [facility] [address] [facility] [address], [place], [address], 05/16/2019 13:23:16 05/16/20 19 05/16/2019 urina lysis , dipst ick, auto Unknown Analyte 5.0 - 8.0 Not Available [facility] With [facility] [address], [place], [address], 05/16/2019 13:23:16 05/16/20 19 05/16/2019 urina lysis , dipst ick, auto Unknown Analyte Negati ve Not Available [facility] With [facility] [address], [place], [address], 05/16/2019 13:23:16 05/16/20 19 05/16/2019 urina lysis , dipst ick, auto Unknown Analyte Negati ve Not Available [facility] With [facility] [address], [place], [address], 05/16/2019 13:23:16 05/16/20 19 05/16/2019 urina lysis , dipst ick, auto Unknown Analyte Negati ve Not Available [facility] [place] [facility] With [facility] [address], [place], [address], 05/16/2019 13:23:16 05/16/20 19 05/16/2019 urina lysis , dipst ick, auto Unknown Analyte Negati ve Not Available [facility] With [facility] [address], [place], [address], 05/16/2019 13:23:16 05/16/20 19 05/16/2019 urina lysis , dipst ick, auto Unknown Analyte Negtiv e Not Available [facility] [place] [facility] With [facility] [address], [place], [address], 05/16/2019 13:23:16 05/16/20 19 05/16/2019 urina lysis , dipst ick, auto Unknown Analyte Negati ve - Trace Not Available [facility] [place] [facility] With [facility] [address], [place], [address], 05/16/2019 13:23:16 05/16/20 19 05/16/2019 urina lysis , dipst ick, auto Unknown Analyte Normal Not Available [facility] Extended Services With [facility] [address], [place], [address], 05/16/2019 13:23:16 05/16/20 19 05/16/2019 urina lysis , dipst ick, auto Unknown Analyte Normal Not Available [facility] Extended Services With [facility] [address], [place], [address], 05/16/2019 13:23:16 05/16/20 19 05/16/2019 urina lysis , dipst ick, auto Unknown Analyte 15 mg/dl (Sm) Not Available [facility] Extended Services With [facility] [address], [place], [address], 05/16/2019 13:23:16 05/16/20 19 05/16/2019 urina lysis , dipst ick, auto Unknown Analyte Negati ve Not Available [facility] Extended Services With [facility] [address], [place], [address], 05/16/2019 13:23:16 05/16/20 19 05/16/2019 urina lysis , dipst ick, auto Unknown Analyte Normal Not Available [facility] Extended Services With [facility] [address], [place], [address], 05/16/2019 13:23:16 05/16/20 19 05/16/2019 urina lysis , dipst ick, auto Unknown Analyte Normal - 1mg/dl Not Available [facility] [place] [facility] With [facility] [address], [place], [address], 05/16/2019 13:23:16 05/16/20 19 05/16/2019 urina lysis , dipst ick, auto Unknown Analyte Negati ve Not Available [facility] With [facility] [address], [place], [address], 05/16/2019 13:23:16 05/16/20 19 05/16/2019 urina lysis , dipst ick, auto Unknown Analyte Negati ve Not Available [facility] With [facility] [address], [place], [address], 05/16/2019 13:23:16 05/16/20 19 05/16/2019 urina lysis , dipst ick, auto Unknown Analyte Negati ve Not Available [facility] [address], [place], [address], 05/16/2019 13:23:16 05/16/20 19 05/16/2019 urina lysis , dipst ick, auto Unknown Analyte Negati ve Not Available [facility] With [facility] [address], [place], [address], 05/16/2019 13:23:16 05/16/20 19 05/16/2019 urina lysis , dipst ick, auto Unknown Analyte Clean Catch Not Available [facility] With [facility] [address], [place], [address], 05/16/2019 13:23:16 05/16/20 19 05/16/2019 urina lysis , dipst ick, auto Unknown Analyte Automa jamshid Not Available [facility] With [facility] [address], [place], [address], 05/16/2019 13:23:16 07/01/20 23 07/07/2023 STONE GERMAINE SIS composition SEE BELOW normal Calci um Oxala te Dihyd rate (Wedd ellit e) 15% Calci um Oxala te Monoh ydrat e (Whew ellit e) 70% Carbo stephany Apati te (Dahl lite) 15% See Note 1 Not Available [facility] [address] [place] [address], [address], 07/07/2023 18:14:54 07/01/2007/07/2023 STONE GERMAINE SIS weight [...] for clini long purpo ses. Not Available [facility] [address] [place], [address], 07/07/2023 18:14:54 Result Notes None recorded. Problems Name Problem SNOMED Code Status Onset Date Resolution Date Notes Provider Name and Address Organization Details Recorded Time Lower urinary tract symptoms due to benign prostatic hypertrophy 6517658727039 1 Active 2018 LEYLA SHAH JR, MD [address] [place] [address], [address] , [facility] 9 11:50:21 Increased frequency of urination 697556507 Active 2018 LEYLA SHAH JR, MD [address] [place] [address], [address], [facility] 9 20:29:31 Nocturia 925856689 Active 2018 LEYLA SHAH JR, MD [address] [place] [address], [address], [facility] 9 20:29:35 Problem Notes None recorded. Procedures Surgical History Date Name Laterality Status Provider Name and Address Organization Details Recorded Time 03/02/20 19 Post Void Residual; Ultrasound completed Rima Ivory [facility] 03/02/2019 11:46:22 04/16/20 17 MEATOTOMY, EXCEPT IN (SURG) completed CONG VILLASENOR MD [address] [place] [address], [address], [facility] 04/29/2017 10:19:09 Heart Surgery completed Deseriee Erie [facility] 03/02/2019 11:35:52 cholecystectomy completed [facility] 05/19/2023 16:19:30 Hernia Repair completed [facility] 05/19/2023 16:19:41 Prostate Surgery completed [facility] 05/19/2023 16:19:58 Urinary Bladder completed [facility] 05/19/2023 16:20:09 Imaging Results None recorded. [...] 2022 active son requests Rx changed to [facility] as pt will not be returning to [facility], so Rx called to new pharmacy per [...] Updated DateTime 05/16/2019 185.42 cm 21.1 kg/m2 54328.78 [facility] 05/16/2019 13:22:42 Date Recorded Body height Systolic And Diastolic Provider Name and Address Organization Details Last Updated DateTime 06/27/2019 185.42 cm 143/77 mm[Hg] [facility] 06/27/2019 15:52:00 Date Recorded Body height Body mass index (BMI) Body weight Provider Name and Address Organization Details Last Updated DateTime 07/08/2023 182.88 cm 29.8 kg/m2 81462.32 g John Emanuel [facility] 07/08/2023 13:21:37 Social History Question Answer Notes LastModified by Organizat ion Details LastModified Time Tobacco Smoking Status Never Smoker [facility] 03/02/2019 11:35:35 Marital Status Informatio n not available 03/02/2019 What Was The Date Of Your Most Recent Tobacco Screening? 03/02/2019 Information not available 10/11/2019 What Is Your Relationship Status? Information not available 05/19/2023 Has Tobacco Cessation Counseling Been Provided? No [email or web address] Information not available 05/19/2023 Sex: Unknown Functional Status Question Answer Note LastModified by Organizat ion Details LastModified Time Do you use any illicit or recreational drugs? No [email or web address] Information not available 05/19/2023 Do you or have you ever used any other forms of tobacco or nicotine? No Information not available 05/19/2023 What is your level of alcohol consumption? 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 Family History Relationship Description Onset Age of this Age Resolved Age Notes LastModified by Organization Details LastModified Time Unspecified Relation Family history of malignant neoplasm colon cancer [email or web address] Not available 05/19/2023 16:18:41 Unspecified Relation Kidney stone paulina Not available 05/2019 11:35:27 Medical History Condition Response Cardiac Disease Y Other Y Arthritis Y High Cholesterol Y High PSA Y Heart Attack ([place]) Y Cancer Y Urinary Tract Infection Y Stroke Y Hypertension Y Kidney Disease Y Past Encounters Encounter ID Performer Location Encounter Start Date Encounter Closed Date Diagnosis/Indication Diagnosis SNOMED-CT Code Diagnosis ICD10 Code Diagnosis IMO Codes Diagnosis Note [id number] LEYLA SHAH JR, MD [address] [place] [address] 03/02/2019 11:00:32 03/07/2019 10:05:38 Lower urinary tract symptoms due to benign prostatic hypertrophy 7050013593 9101 N40.1 Increased frequency of urination 851121116 R35.0 Nocturia 566590233 R35.1 [id number] LEYLA SHAH JR, MD [facility] [address] [facility] [address] [place] [phone] 05/16/2019 13:05:53 05/18/2019 08:09:55 Lower urinary tract symptoms due to benign prostatic hypertrophy 2805173844 9101 N40.1 [id number] LEYLA SHAH JR, MD [facility]ED SERVICES [address] [facility] [address] [place] [phone] 06/27/2019 14:58:19 06/30/2019 11:19:02 Lower urinary tract symptoms due to benign prostatic hypertrophy 9832554712 9101 N40.1 Nocturia 350315517 R35.1 [id number] MD JONES FONTANEZ [facility] [address] [place] [address] 05/19/2023 14:49:48 05/19/2023 16:47:49 Urinary bladder stone 07487687 N21.0 follow upp 2 months , earlier if necessary [id number] CONG VILLASENOR MD SURGERY SCHEDULE [address] [place] [address] 07/01/2023 10:05:11 07/01/2023 10:05:30 [id number] MD JONES FONTANEZ [facility] [address] [place] [address] 07/08/2023 13:06:58 07/08/2023 14:09:02 Urinary bladder stone 50926289 N21.0 follow upp 2 months , earlier if necessary, he will complete his antibiotic s Increased frequency of urination 692881673 R35.0 as above Health Concerns Section Related Observation LastModified by Organization Detai ls LastModified Time None Recorded Concern Status LastModified by Organization Details LastModified Time None Recorded Advance Directives Directive None Recorded Payers Insurance Date Sequence Insurance Name Policy Number Policy Mullen Covered Member ID Mullen Member ID Guarantor Name 05/19/2023 1 [place] Jorge Villasenor [id number] Jorge Pickering Fernando 09/06/2023 1 [employer] (MEDICARE REPLACEMENT/A DVANTAGE - PPO) Jorge Pickering Fernando [id number] Jorge Pickering Fernando Notes Date Note Type Note Provider Name and Address Organization Details Recorded Time 05/16/2019 text/html Patient is in today for evaluation of frequency and urgency with [...] of 9.3. LEYLA SHAH JR, MD [address] [place], [address], [facility] 05/16/2019 14:03:31 06/27/2019 text/html Patient is in today for evaluation of frequency and urgency with [...] is somewhat improved. LEYLA SHAH JR, MD [address] [place] [address], [address], [facility] 06/29/2019 08:09:36 05/19/2023 text/html pt with h/o meatal stenosis and previous bladder stones. Since last [...] it. HE had a Resume treatment in [place] about 3 years ago. I reviewed ct scan disc for [facility] CONG VILLASENOR MD [address] [place] [address] [place], [address], [facility] 05/21/2023 11:32:44 07/08/2023 text/html Patient is [...] obstructing had recent cystoscopy. CONG VILLASENOR MD [address] [place], [address], [facility] 07/08/2023 14:34:03
--- OUTSIDE RECORDS SUMMARY | 2025-05-29 08:57 | XMS_ITS | Encounter Summary ---
Author Organization [employer] ([place], [place], [place], [place]) Address [address] [place] [address] Care Team Providers Care Scientific Photographer Name Role Phone Unavailable Primary Care Provider Unavailabl e Encounter Details Date Type Department Care Team (Late st Contact Info) Description 11/29/2018 Transcribed Document [facility] [place] Family Medicine [address] [place] [address] ProviderErika MD [address] [place], [place] [id number] Social History Tobacco Use Types Packs/Day Years Used Date Smoking Tobacco: Never Assessed Sex and Gender Information Value Date Recorded Sex Assigned at Not on file Legal Sex Male 5:03 PM CDT Gender Identity Not on file Sexual Orientation Not on file documented as of this encounter Miscellaneous Notes * Cerner Conversion Note - Erika ProviderMD - 11/29/2018 1:37 PM CDT Discharge Summary, MACHINE WELDER Entered On: 11/29/2018 13:40 EDT Performed On: 11/29/2018 13:37 EDT by JOSSUE RODRÍGUEZ MACHINE WELDER Discharge Notation. MACHINE WELDER Dysphagia Treatment After Discharge : No Discharge Diet : Regular Discharge Liquids : Thin Discharge Summary Comment, MACHINE WELDER : Attempted to see pt for language [...] - 11/29/2018 13:37 EDT LTG Lang/Comm/Cog LTG MACHINE WELDER Skilled Nursing Goal 1 Skilled Nursing Goal 2 Goals : Improved spoken language expression at the time of discharge Improved auditory/spoken language comprehension at the time of discharge Status : Discontinue Discontinue JOSSUE RODRÍGUEZ SLP - 11/29/2018 13:37 EDT JOSSUE RODRÍGUEZ, [facility] - 11/29/2018 13:37 EDT STG Lang_Comm_Cog Motor Speech STG Grid Goal #1 Activity : Improve intelligibility of speech Status : Discontinue JOSSUE RODRÍGUEZ [facility] - 11/29/2018 13:37 EDT Auditory Comprehension Grid Goal #1 Goal #2 Activity : Follow directions, 3 step commands simple Comprehend paragraph complex Status : Discontinue Discontinue JOSSUE RODRÍGUEZ [facility] - 11/29/2018 13:37 EDT JOSSUE RODRÍGUEZ, [facility] - 11/29/2018 13:37 EDT Verbal Expression STG Grid Goal #1 Activity : Generate items in a category Status : Discontinue JOSSUE RODRÍGUEZ MACHINE WELDER - 11/29/2018 13:37 EDT Reading Comprehension STG Grid Goal #1 Activity : Visual perception deficits Status : Discontinue JOSSUE RODRÍGUEZ [facility] - 11/29/2018 13:37 EDT Attention STG Grid Goal #1 Activity : Other: Probe Status : Goal met Date Met : 11/24/2018 EDT JOSSUE RODRÍGUEZ [facility] - 11/29/2018 13:37 EDT Memory STG Grid Goal #1 Goal #2 Goal #3 Activity : Other: Probe Improve short term functional delayed Improve short term working memory Status : Goal met Discontinue Discontinue Date Met : 11/24/2018 EDT JOSSUE RODRÍGUEZ, [facility] - 11/29/2018 13:37 EDT JOSSUE RODRÍGUEZ, [facility] - 11/29/2018 13:37 EDT JOSSUE RODRÍGUEZ, [facility] - 11/29/2018 13:37 EDT Problem Solving STG Grid Goal #1 Goal #2 Goal #3 Goal #4 Activity : Generate a list of simple/concrete items Label items in a category, complex/abstract Other: Probe Improve simple problem solving Status : Discontinue Discontinue Goal met Discontinue Date Met : 11/24/2018 EDT JOSSUE RODRGÍUEZ, [facility] - 11/29/2018 13:37 EDT JOSSUE RODRÍGUEZ, [facility] - 11/29/2018 13:37 EDT JOSSUE RODRÍGUEZ, [facility] - 11/29/2018 13:37 EDT JOSSUE RODRÍGUEZ, MACHINE WELDER - 11/29/2018 13:37 EDT Swallow Plan/Goals Swallow LTG Grid MACHINE WELDER Skilled Nursing Goal #1 MACHINE WELDER Runner Out Goal #2 Swallow LTG : Establish safe [...]
--- OUTSIDE RECORDS SUMMARY | 2025-05-29 08:57 | XMS_ITS | Encounter Summary ---
Author Organization [employer] ([place], [place], [place], [place]) Address [address] [place] [address] Care Team Providers Care Fisher Reef Net Name Role Phone Unavailable Primary Care Provider Unavailjuliana e Encounter Details Date Type Department Care Team (Late st Contact Info) Description 11/29/2018 Transcribed Document [facility] [place] Family Medicine [address] [place] [address] ProviderErika MD [address] [place] [address] Social History Tobacco Use Types [...] 11/17/2018 00:00 Atherosclerotic heart disease of [place] coronary artery without angina pectoris 11/17/2018 00:00 Essential (primary) hypertension 11/17/2018 00:00 Hypothyroidism, unspecified 11/17/2018 00:00 Nonrheumatic aortic (valve) insufficiency 11/17/2018 00:00 Restless legs syndrome 11/17/2018 00:00 Thoracic aortic aneurysm, without rupture 11/17/2018 00:00 Thrombocytopenia, unspecified 11/16/2018 00:00 Atherosclerotic heart disease of [place] coronary artery without angina pectoris 11/16/2018 00:00 Nonrheumatic aortic (valve) insufficiency 11/16/2018 00:00 Thoracic aortic aneurysm, without rupture Admission Date : 11/16/2018 06:45 Co-treated by, OT : real estate executive assistant (OPERATIONS PLANT ATTENDANT) Personal Devices : Personal Devices No Devices [...] DAKOTA VELAZQUEZ OTR/L - 11/29/2018 13:08 EDT Group Home Goals, OT Self Feeding LTG Grid Goal [...]
--- OUTSIDE RECORDS SUMMARY | 2025-05-29 08:57 | XMS_ITS | Encounter Summary ---
Author Organization [employer] ([place], [place], [place], [place]) Address [address] [place] [address] Care Team Providers Care Renewals Specialist Name Role Phone Unavailable Primary Care Provider Unavailabl e Encounter Details Date Type Department Care Team (Late st Contact Info) Description 11/22/2018 Transcribed Document [facility] [place] Family Medicine [address] [place] [address] ProviderErika MD [address] [place] [address] Social History Tobacco Use Types [...] Community Services : Outpt Cardiac Rehab [facility] [phone] They will call pt w/ appt time. SUZANNA HAINES, Fixed Income Manager - 11/30/2018 15:30 EDT Driving After Discharge : Do not drive, Other: No driving or operating heavy machinery until released by a physician. JAY JAY CRESPO MD-NEU - 11/22/2018 11:16 EDT documented in this encounter Plan of Treatment Not on file documented as of this encounter Visit Diagnoses Not on filedocumented in this encounter
--- OUTSIDE RECORDS SUMMARY | 2025-05-29 08:57 | XMS_ITS | Encounter Summary ---
Author Organization [employer] ([place], [place], [place], [place]) Address [address] [place] [address] Care Team Providers Care Svp Group Director Name Role Phone Unavailable Primary Care Provider Unavailabl e Encounter Details Date Type Department Care Team (Late st Contact Info) Description 11/22/2018 Transcribed Document [facility] [place] Family Medicine [address] [place] [address] ProviderErika MD [address] [place] [address] Social History Tobacco Use [...] Source : Measured Height Entry Format : Vale Height, Feet : 6 ft Height, Inches : 1 Inch Clinical Height : 185.42 cm Body Surface Area (BSA), Routine : 2.09 m2 Body Mass Index (BMI), Routine : 24.52 kg/m2 Amanda Sigala, TONJA - 11/22/2018 6:36 EDT Electronically signed by Christina Saini Conversion Heavy Equipment Diesel Mechanic Cerner at 12/08/2022 12:18 PM CDT documented in this encounter Plan of Treatment Not on file documented as of this encounter Visit Diagnoses Not on filedocumented in this encounter
--- OUTSIDE RECORDS SUMMARY | 2025-05-29 08:57 | XMS_ITS | Encounter Summary ---
Author Organization [employer] ([place], [place], [place], [place]) Address [address] [place] [address] Care Team Providers Care Animator Name Role Phone Unavailable Primary Care Provider Unavailabl e Encounter Details Date Type Department Care Team (Late st Contact Info) Description 11/30/[address] [facility] [place] Family Medicine [address] [place] [address] ProviderErika MD [address] [place] [address] Social History Tobacco Use [...] room 330. Discussed w/ Carmen from [facility] who is still following pt. She has submitted pt info to for approval. Pt had EGD 11/29 which revealed duodenal ulcer w/ clot but no bleeding, no intervention needed, Off heparin gtt, watching pt's INR and H & H. Speech signed off today, pt is cleared for thins. Met w/ pt and family and informed them of [facility] situation. Also discussed outpt Cardiac Rehab. They prefer to go to [facility]. Phoned them and left msg, sent pt [...] seen on 11/25/18) followed up with [facility] today regarding possible admission - plan [...] seen on 11/25/18) followed up with [facility] today regarding possible admission - plan is to submit for approval today after being seen by therapy, for their MD approval. Once accepting MD in place, bed in place and patient is medically stable will be able to transfer due to patient not requiring a insurance prior auth. CM will continue to follow. ODALYS FAULKNER Rn-Account [employer] - 11/24/18 13:22:19 11/24/[address] [facility] called to let me know they started a precert on this pt. CF ODALYS FAULKNER Rn-[employer] - 11/22/18 13:56:32 11/22/18 Pt has had a cva. Spoke to his Connie and son Sumeet at the bedside. Pt is lfacid on the left side. Discussed the need for STR and they decided on [facility]. Sent pt info via [facility] to [facility]. CF Documentation Status Complete : Yes SUZANNA HAINES C4 Planner - 11/30/2018 15:24 EDT Discharge Planning Details Persons Assisting Patient at Home : Spouse SUZANNA HAINES Social Worker - 11/30/2018 15:24 EDT Electronically signed by [facility] Conversion Street Department Dispatcher Felipe at 12/08/2022 12:27 PM CDT documented in this encounter Plan of Treatment Not on file documented as of this encounter Visit Diagnoses Not on filedocumented in this encounter
--- OUTSIDE RECORDS SUMMARY | 2025-05-29 08:57 | XMS_ITS | Encounter Summary ---
Author Organization [employer] ([place], [place], [place], [place]) Address [address] [place] [address] Care Team Providers Care Handle Attacher Name Role Phone Unavailable Primary Care Provider Unavailabl e Encounter Details Date Type Department Care Team (Late st Contact Info) Description 11/29/2018 Transcribed Document [facility] [place] Family Medicine [address] [place] [address] ProviderErika MD [address] [place], [place] [id number] Social History Tobacco Use Types Packs/Day Years [...] 1940 Associated Diagnoses: CAD (coronary artery disease), [place] coronary artery; Thrombocytopenia; Coronary artery disease; HTN [...] Non-distended, Normal bowel sounds. Integumentary: Warm, Dry, [place], incision is C/D/I. Neurologic: Alert, left sided [...] (Current Encounter/Past 24 Hours) PT 31.3 Second(s) MA 11/29/2018 06:38 PTT 27.6 Second(s) 11/28/2018 08:53 INR 3.0 MA 11/29/2018 06:38 . Impression and Plan Plan: [...] discharge- has sent information to [facility] -Transfer to [facility] 11/24/18 -POD#8 -Awaiting transfer to [facility] -Awaiting response from [facility] [...] been set up. -[facility] 11/29/18: -POD#13 -Upper endoscopy showed duodenal [...] to GI bleed. -Transfer to [facility] EF 55-60% per echo 11/16/18 DVT Prophylaxis: SCDs Diagnosis CAD (coronary artery disease), [place] coronary artery - Admitting, Medical. Thrombocytopenia - [...]
--- OUTSIDE RECORDS SUMMARY | 2025-05-29 08:57 | XMS_ITS | Encounter Summary ---
Author Organization [employer] ([place], [place], [place], [place]) Address [address] [place] [address] Care Team Providers Care Basin Finish Operator Tig Welder Name Role Phone Unavailable Primary Care Provider Unavailabl e Encounter Details Date Type Department Care Team (Late st Contact Info) Description 11/23/2018 Transcribed Document [facility] [place] Family Medicine [address] [place] [address] ProviderErika MD [address] [place] [address] Social History Tobacco Use Types [...] unspecified 11/17/2018 00:00 Atherosclerotic heart disease of [place] coronary artery without angina pectoris 11/17/2018 00:00 Essential (primary) hypertension 11/17/2018 00:00 Hypothyroidism, unspecified 11/17/2018 00:00 Nonrheumatic aortic (valve) insufficiency 11/17/2018 00:00 Restless legs syndrome 11/17/2018 00:00 Thoracic aortic aneurysm, without rupture 11/17/2018 00:00 Thrombocytopenia, unspecified 11/16/2018 00:00 Atherosclerotic heart disease of [place] coronary artery without angina pectoris 11/16/2018 [...] AUDREY GRANDE OTR/Ginny - 11/30/2018 15:25 EDT Outpatient Coding Specialist Goals, OT Self Feeding LTG Grid Goal [...] Family present. MaxAx2 chair to bed transfer, POLISHER HAND. RN assisting. Pt's L UE very weak. [...]
--- OUTSIDE RECORDS SUMMARY | 2025-05-29 08:57 | XMS_ITS | Encounter Summary ---
Author Organization [employer] ([place], [place], [place], [place]) Address [address] [place] [address] Care Team Providers Care Perinatal Social Worker Name Role Phone Unavailable Primary Care Provider Unavailabl e Encounter Details Date Type Department Care Team (Late st Contact Info) Description 11/29/[address] [facility] [place] Family Medicine [address] [place] [address] ProviderErika MD [address] [place], [place] [id number] Social History Tobacco Use Types Packs/Day Years Used Date Smoking Tobacco: Never Assessed Sex and Gender Information Value Date Recorded Sex Assigned at Not on file Legal Sex Male 5:03 PM CDT Gender Identity Not on file Sexual Orientation Not on file documented as of this encounter Miscellaneous Notes * Cerner Conversion Note - Historical ProviderMD - 11/29/2018 2:00 AM CDT Manager Wound Care Details Entered On: 11/29/2018 1:39 EDT Performed [...] EDT Electronically signed by Christina Saini Conversion Lithographic Press Operator Apprentice Cerner at 12/08/2022 12:30 PM CDT documented in this encounter Plan of Treatment Not on file documented as of this encounter Visit Diagnoses Not on filedocumented in this encounter
--- OUTSIDE RECORDS SUMMARY | 2025-05-29 08:57 | XMS_ITS | Encounter Summary ---
Author Organization [employer] ([place], [place], [place], [place]) Address [address] [place] [address] Care Team Providers Care Science Professor Name Role Phone Unavailable Primary Care Provider Unavailabl e Encounter Details Date Type Department Care Team (Late st Contact Info) Description 11/23/2018 Transcribed Document [facility] Family Medicine [address] [place] [address] ProviderErika MD [address] [place] [address] Social History Tobacco Use Types [...] Time of Assessment : 11/23/2018 20:00 EDT [facility] Clinician Administering Scale : SHELDON MUELLER [...] in one limb NIH Sensory (8) : [id number] sensory loss NIH Best Language (9) : No aphasia NIH Dysarthria (10) : Normal Extinction and Inattention (11) : No abnormality NIH Scale Score : 9 SHELDON MUELLER RN - 11/23/2018 20:14 EDT documented in this encounter Plan of Treatment Not on file documented as of this encounter Visit Diagnoses Not on filedocumented in this encounter
--- OUTSIDE RECORDS SUMMARY | 2025-05-29 08:57 | XMS_ITS | Encounter Summary ---
Author Organization [employer] ([place], [place], [place], [place]) Address [address] [place] [address] Care Team Providers Care Global Sales Director Name Role Phone Unavailable Primary Care Provider Unavailabl e Encounter Details Date Type Department Care Team (Late st Contact Info) Description 11/29/2018 Transcribed Document [facility] [place] [address] [place] [address] ProviderErika MD [address] [place] [address] Social History Tobacco Use Types Packs/Day Years Used Date Smoking Tobacco: Never Assessed Sex and Gender Information Value Date Recorded Sex Assigned at Not on file Legal Sex Male 5:03 PM CDT Gender Identity Not on file Sexual Orientation Not on file documented as of this encounter Miscellaneous Notes * Cerner Conversion Note - Historical ProviderMD - 11/29/2018 11:15 AM CDT COTTON MACHINE OPERATOR Attempt to Treat Entered On: 11/29/2018 11:15 [...]
--- OUTSIDE RECORDS SUMMARY | 2025-05-29 08:58 | XMS_ITS | Encounter Summary ---
Author Organization [employer] ([place], [place], [place], [place]) Address [address] [place] [address] Care Team Providers Care Vp Analytics Name Role Phone Unavailable Primary Care Provider Unavailabl e Encounter Details Date Type Department Care Team (Late st Contact Info) Description 11/17/2018 Transcribed Document [facility] [place] Family Medicine [address] [place] [address] ProviderErika MD [address] [place], [place] [phone] Social History Tobacco Use Types Packs/Day Years [...] 1940 Associated Diagnoses: CAD (coronary artery disease), [place] coronary artery; Thrombocytopenia; Coronary artery disease; HTN [...] Palpable bilateral DP pulses. Integumentary: Warm, Dry, [place]. Neurologic: Not alert. Review / Management Results review: NOV 17 03:12 142 110 20 / H 115 4.1 25 1.10 \ NOV 17 03:12 \ L 10.7 / H 15.3 L 112 / L 32.1 \ Blood Gases (Current Encounter/Past 24 Hours) pH Art 7.48 MI 11/17/2018 05:17 pCO2 Art 31.2 LOW 11/17/2018 [...] 43.0 11/16/2018 12:06 pO2 Art POC 433.0 MI 11/16/2018 12:06 HCO3 Art POC 28.5 MI 11/16/2018 12:06 tCO2 Art POC 30.0 MI 11/16/2018 12:06 BE Art POC 4.0 MI 11/16/2018 12:06 sO2 Art POC >99.9 MI 11/16/2018 12:06 ABG Num of Draw Attempts 1 11/17/2018 05:17 Coagulation Results (Current Encounter/Past 24 Hours) No Coagulation Results Found (Past 24 Hours) . Impression and Plan Plan: 11/17/18 -POD#1 -MTs left in place secondary to drainage EF 55-60% per echo 11/16/18 DVT Prophylaxis: SCDs Diagnosis CAD (coronary artery disease), [place] coronary artery - Admitting, Medical. Thrombocytopenia - [...]
--- OUTSIDE RECORDS SUMMARY | 2025-05-29 08:58 | XMS_ITS | Encounter Summary ---
Author Organization [employer] ([place], [place], [place], [place]) Address [address] [place] [address] Care Team Providers Care Inspector And Mender Name Role Phone Unavailable Primary Care Provider Unavailabl e Encounter Details Date Type Department Care Team (Late st Contact Info) Description 11/30/2018 Transcribed Document [facility] [place] Family Medicine [address] [place] [address] ProviderErika MD [address] [place] [address] Social History Tobacco Use [...]
--- OUTSIDE RECORDS SUMMARY | 2025-05-29 08:58 | XMS_ITS | Encounter Summary ---
Author Organization [facility] Address [address] [place] [address] Care Team Providers Care Scruff Worker Name Role Phone Sanjuana Valdez APRN Primary Care Provider [phone] Clifford Horner MD Primary Care Provider [phone] Encounter Details Date Type Department Care Team (Late st Contact Info) Description 06/02/2022 [facility] [address] [place] [address] Joanna Zamora, DPM [address] [place], [place] [phone] Contracture of left ankle (Primary Dx); Contracture [...] foot documented in this encounter Care Teams Scruff Worker Relationship Specialty Start Date End Date Sanjuana Valdez APRN [address] [place] [address] PCP - General 01/04/21 07/13/24 Clifford Horner MD [address] [place] [address] PCP - General 07/14/24 documented as of this encounter
--- OUTSIDE RECORDS SUMMARY | 2025-05-29 08:58 | XMS_ITS | Encounter Summary ---
Author Organization [employer] ([place], [place], [place], [place]) Address [address] [place] [address] Care Team Providers Care Electrical Lineworker Name Role Phone Unavailable Primary Care Provider Unavailabl e Encounter Details Date Type Department Care Team (Late st Contact Info) Description 11/25/2018 Transcribed Document [facility] [place] Family Medicine [address] [place] [address] ProviderErika MD [address] [place] [address] Social History Tobacco Use Types [...] Time of Assessment : 11/25/2018 9:00 EDT [facility] Clinician Administering Scale : Elissa Rodarte [...]
--- OUTSIDE RECORDS SUMMARY | 2025-05-29 08:58 | XMS_ITS | Encounter Summary ---
Author Organization [employer] ([place], [place], [place], [place]) Address [address] [place] [address] Care Team Providers Care Risk Officer Name Role Phone Unavailable Primary Care Provider Unavailabl e Encounter Details Date Type Department Care Team (Late st Contact Info) Description 11/18/2018 Transcribed Document [facility] [place] Family Medicine [address] [place] [address] ProviderErika MD [address] [place] [address] Social History Tobacco Use Types Packs/Day Years Used Date Smoking Tobacco: Never Assessed Sex and Gender Information Value Date Recorded Sex Assigned at Not on file Legal Sex Male 5:03 PM CDT Gender Identity Not on file Sexual Orientation Not on file documented as of this encounter Miscellaneous Notes * Cerner Conversion Note - Historical ProviderMD - 11/18/2018 2:00 AM CDT Lumber Estimator Details Entered On: 11/18/2018 4:41 EDT Performed [...] EDT Electronically signed by Christina Saini Conversion Broke Beater Machine Operator Cerner at 12/08/2022 12:31 PM CDT documented in this encounter Plan of Treatment Not on file documented as of this encounter Visit Diagnoses Not on filedocumented in this encounter
--- OUTSIDE RECORDS SUMMARY | 2025-05-29 08:58 | XMS_ITS | Encounter Summary ---
Author Organization [employer] ([place], [place], [place], [place]) Address [address] [place] [address] Care Team Providers Care Record Retrieval Specialist Name Role Phone Unavailable Primary Care Provider Unavailabl e Encounter Details Date Type Department Care Team (Late st Contact Info) Description 11/25/2018 Transcribed Document [facility] [place] [address] [place] [address] ProviderErika MD [address] [place], [place] [phone] Social History Tobacco Use Types Packs/Day Years [...] 1940 Associated Diagnoses: CAD (coronary artery disease), [place] coronary artery; Thrombocytopenia; Coronary artery disease; HTN [...] left upper extremity swelling. Integumentary: Warm, Dry, [place], incision is C/D/I. Neurologic: Alert, left [...] of discharge- CM has sent information to [facility] -Transfer to [facility] 11/24/18 -POD#8 -Awaiting transfer to [facility] -Awaiting response from [facility] 11/25/18 -left upper extremity venous doppler - doppler this am positive for LUE DVT - will start coumadin and heparin bridge -awaiting [facility] EF 55-60% per echo 11/16/18 DVT Prophylaxis: SCDs Diagnosis CAD (coronary artery disease), [place] coronary artery - Admitting, Medical. Thrombocytopenia - [...]
--- OUTSIDE RECORDS SUMMARY | 2025-05-29 08:58 | XMS_ITS | Encounter Summary ---
Author Organization [employer] ([place], [place], [place], [place]) Address [address] [place] [address] Care Team Providers Care Quality Assurance Assistant Name Role Phone Unavailable Primary Care Provider Unavailabl e Encounter Details Date Type Department Care Team (Late st Contact Info) Description 11/23/2018 Transcribed Document [facility] [place] [address] [place] [address] ProviderErika MD [address] [place], [place] [phone] Social History Tobacco Use Types Packs/Day Years [...] 1940 Associated Diagnoses: CAD (coronary artery disease), [place] coronary artery; Thrombocytopenia; Coronary artery disease; HTN [...] S1, S2, No edema. Integumentary: Warm, Dry, [place], incision is C/D/I. Neurologic: Alert, left sided [...] of discharge- MELLISSA has sent information to [facility] -Transfer to [facility] EF 55-60% per echo 11/16/18 DVT Prophylaxis: SCDs Diagnosis CAD (coronary artery disease), [place] coronary artery - Admitting, Medical. Thrombocytopenia - [...]
--- OUTSIDE RECORDS SUMMARY | 2025-05-29 08:58 | XMS_ITS | Clinical Summary ---
Author Organization [employer] ([place], [place], [place], [place]) Address [address] [place] [address] Care Team Providers Care Velvet Weaver Name Role Phone Unavailable Primary Care Provider [...]
--- OUTSIDE RECORDS SUMMARY | 2025-05-29 08:58 | XMS_ITS | Encounter Summary ---
Author Organization [employer] ([place], [place], [place], [place]) Address [address] [place] [address] Care Team Providers Care Robotics Technician Name Role Phone Unavailable Primary Care Provider Unavailabl e Encounter Details Date Type Department Care Team (Late st Contact Info) Description 11/18/2018 Transcribed Document [facility] [place] Family Medicine [address] [place] [address] ProviderErika MD [address] [place], [...] on Osmolite 1.5 @ 50m/hr + 1 [id number] daily advancing toward goal of 60ml/hr + 1 [id number] daily. No SECRETARY BOOK KEEPER consult noted, discussed if any concern for [...] midline incision; chest tube 370ml GI: LBM FROG OR OYSTER FARMWORKER (admit 11/16), hypoactive BS, +NGT Nutrition Support: Osmolite 1.5 @ 60ml/hr + 1 [id number] daily, water flush 10ml q1hr HT: 185cm (6'1) ADMIT WT: 79kg/174# Current Wt: 81.6kg (11/17), 82.4kg (11/18) BMI: 23 IBW: 79kg/100% EST NEEDS: 7491-5453 kcal (25-30kcal/kg), 95g pro (1.2g/kg) Bev Olvera [...] TF: Osmolite 1.5 @ 60ml/hr + 1 [id number] daily (provides 2040 kcal, 98g pro). FW per MD. goal: provide nutrition, meet est needs 2. As medically able, recommend swallow eval if appropriate; rec (cardiac) w/consistencies per SECRETARY BOOK KEEPER. RD will monitor need for supplement. goal: [...]
--- OUTSIDE RECORDS SUMMARY | 2025-05-29 08:58 | XMS_ITS | Clinical Summary ---
Author Organization [facility] Address [address] [place] [address] Care Team Providers Care Dev Technical Mgr Name Role Phone Clifford Horner MD Primary Care Provider Allergies No known active allergies Medications dutasteride [...] r (1 - 1-dose 75+ series) 2014 [id number] Vaccine (3 - Moderna risk series) 02/11/2021 [...] complete this topic Insurance MEDICARE Care Teams Dev Technical Mgr Relationship Specialty Start Date End Date Clifford Horner MD [address] [facility] [address] [place] [address] PCP - General 07/14/24
--- OUTSIDE RECORDS SUMMARY | 2025-05-29 08:58 | XMS_ITS | Encounter Summary ---
Author Organization [employer] ([place], [place], [place], [place]) Address [address] [place] [address] Care Team Providers Care Facility Mechanic Name Role Phone Unavailable Primary Care Provider Unavailabl e Encounter Details Date Type Department Care Team (Late st Contact Info) Description 11/23/2018 Transcribed Document [facility] [place] [address] [place] [address] ProviderErika MD [address] [place] [address] Social History Tobacco Use Types Packs/Day Years Used Date Smoking Tobacco: Never Assessed Sex and Gender Information Value Date Recorded Sex Assigned at Not on file Legal Sex Male 5:03 PM CDT Gender Identity Not on file Sexual Orientation Not on file documented as of this encounter Miscellaneous Notes * Cerner Conversion Note - Historical ProviderMD - 11/23/2018 1:36 PM CDT Photoengraving Etcher Apprentice Details Entered On: 11/23/2018 16:44 EDT Performed [...] Electronically signed by Christina Saini Conversion Automotive Brake Specialist Cerner at 12/08/2022 12:18 PM CDT documented in this encounter Plan of Treatment Not on file documented as of this encounter Visit Diagnoses Not on filedocumented in this encounter
--- OUTSIDE RECORDS SUMMARY | 2025-05-29 08:58 | XMS_ITS | Encounter Summary ---
Author Organization [employer] ([place], [place], [place], [place]) Address [address] [place] [address] Care Team Providers Care Chief Contract Officer Name Role Phone Unavailable Primary Care Provider Unavailabl e Encounter Details Date Type Department Care Team (Late st Contact Info) Description 11/17/2018 Transcribed Document [facility] [place] [address] [place] [address] ProviderErika MD [address] [place], [...] EDT Electronically signed by Christina Saini Conversion Irrigation Equipment Remover Cerner at 12/08/2022 12:19 PM CDT documented in this encounter Plan of Treatment Not on file documented as of this encounter Visit Diagnoses Not on filedocumented in this encounter
--- OUTSIDE RECORDS SUMMARY | 2025-05-29 08:58 | XMS_ITS | Encounter Summary ---
Author Organization [employer] ([place], [place], [place], [place]) Address [address] [place] [address] Care Team Providers Care Cardiothoracic Surgeon Name Role Phone Unavailable Primary Care Provider Unavailabl e Encounter Details Date Type Department Care Team (Late st Contact Info) Description 11/25/2018 Transcribed Document [facility] [place] [address] [place] [address] ProviderErika MD [address] [place] [address] Social History Tobacco Use Types [...]
--- OUTSIDE RECORDS SUMMARY | 2025-05-29 08:58 | XMS_ITS | Encounter Summary ---
Author Organization [employer] ([place], [place], [place], [place]) Address [address] [place] [address] Care Team Providers Care Journeyman Painter Name Role Phone Unavailable Primary Care Provider Unavailabl e Encounter Details Date Type Department Care Team (Late st Contact Info) Description 11/23/2018 Transcribed Document [facility] [place] Family Medicine [address] [place] [address] ProviderErika MD [address] [place] [address] Social History Tobacco Use Types [...]
--- OUTSIDE RECORDS SUMMARY | 2025-05-29 08:58 | XMS_ITS | Encounter Summary ---
Author Organization [employer] ([place], [place], [place], [place]) Address [address] [place] [address] Care Team Providers Care Bank Credit Card Collection Clerk Name Role Phone Unavailable Primary Care Provider Unavailabl e Encounter Details Date Type Department Care Team (Late st Contact Info) Description 11/30/2018 Transcribed Document [facility] [place] [address] [place] [address] ProviderErika MD [address] [place] [address] Social History Tobacco Use Types Packs/Day Years Used Date Smoking Tobacco: Never Assessed Sex and Gender Information Value Date Recorded Sex Assigned at Not on file Legal Sex Male 5:03 PM CDT Gender Identity Not on file Sexual Orientation Not on file documented as of this encounter Miscellaneous Notes * Cerner Conversion Note - Historical ProviderMD - 11/30/2018 2:00 AM CDT Milieu Technician Details Entered On: 11/30/2018 0:59 EDT Performed [...]
--- OUTSIDE RECORDS SUMMARY | 2025-05-29 08:58 | XMS_ITS | Encounter Summary ---
Author Organization [employer] ([place], [place], [place], [place]) Address [address] [place] [address] Care Team Providers Care President & Ceo [employer] Name Role Phone Unavailable Primary Care Provider Unavailabl e Encounter Details Date Type Department Care Team (Late st Contact Info) Description 11/18/2018 Transcribed Document [facility] [place] [address] [place] [address] ProviderErika MD [address] [place] [address] Social History Tobacco Use Types [...] Initial Visit : Yes Referred by : Parts Sales Associate initiated Referral Reason Comment : Post-op visit Ministry Provided to : Patient, Family/Significant other Judaism Preference : Buddhist MARCOS GASCA P - 11/18/2018 10:51 EDT [...] other supported, Relationship strengths identified Spiritual and Judaism : Prayer shared, Spiritual/Judaism support provided MARCOS GASCA P - 11/18/2018 10:51 EDT Electronically signed by Parveen, [facility] Conversion Stripper And Taper Cerner at 12/08/2022 12:34 PM CDT documented in this encounter Plan of Treatment Not on file documented as of this encounter Visit Diagnoses Not on filedocumented in this encounter
--- OUTSIDE RECORDS SUMMARY | 2025-05-29 08:58 | XMS_ITS | Encounter Summary ---
Author Organization [employer] ([place], [place], [place], [place]) Address [address] [place] [address] Care Team Providers Care Chairlift Operator Name Role Phone Unavailable Primary Care Provider Unavailabl e Encounter Details Date Type Department Care Team (Late st Contact Info) Description 11/25/2018 Transcribed Document [facility] [place] [address] [place] [address] ProviderErika MD [address] [place], [place] [id number] Social History Tobacco Use Types Packs/Day Years [...] Tab, Oral, At Bedtime saliva substitutes, 1 [place], Buccal, Q2H, PRN Senokot, 17.2 mg= 2 Tab, Oral, BID warfarin, 5 mg= 1 Tab, Oral, Daily Zofran, 4 mg= 2 mL, IV Push, Q4H, PRN Electronically signed by Parveen, [facility] Conversion Materials Inspector Cerner at 12/08/2022 12:38 PM CDT documented in this encounter Plan of Treatment Not on file documented as of this encounter Visit Diagnoses Not on filedocumented in this encounter
--- OUTSIDE RECORDS SUMMARY | 2025-05-29 08:58 | XMS_ITS | Encounter Summary ---
Author Organization [employer] ([place], [place], [place], [place]) Address [address] [place] [address] Care Team Providers Care Slab Stripper Name Role Phone Unavailable Primary Care Provider Unavailjuliana e Encounter Details Date Type Department Care Team (Late st Contact Info) Description 11/17/2018 Transcribed Document [facility] [place] Family Medicine [address] [place] [address] ProviderErika MD [address] [place] [address] Social History Tobacco Use Types [...] On: 11/17/2018 11:49 EDT by Lizabeth Marti, Clinical Data Manager Nutrition Assessment Nutrition Assessment Reason : [...] wnls + sternum midline incision GI: LBM TRANSIT SPECIALIST, hypoactive BS, +NGT, +chest tube (1030 ml) HT: 185cm (6'1) ADMIT WT: 79kg/174# BMI: 23 IBW: 79kg/100% NFPE: insignificant EST NEEDS: 2402-5195 kcal (25-30kcal/kg), 95g pro (1.2g/kg) Lizabeth Marti [...] recommend initate po diet (cardiac) w/consitencies per RIGHT OF WAY WORKER. RD will monitor need for supplement. goal: establish po intake 3. obtain wt 2x weekly goal: no significant unintended changes high risk Nutrition Care Level : High Lizabeth Marti Dietician - 11/17/2018 11:44 EDT Electronically signed by Christina Saini Conversion Java Web Application Developer Cerner at 12/08/2022 12:24 PM CDT documented in this encounter Plan of Treatment Not on file documented as of this encounter Visit Diagnoses Not on filedocumented in this encounter
--- OUTSIDE RECORDS SUMMARY | 2025-05-29 08:58 | XMS_ITS | Encounter Summary ---
Author Organization [employer] ([place], [place], [place], [place]) Address [address] [place] [address] Care Team Providers Care Operating Table Assembler Name Role Phone Unavailable Primary Care Provider Unavailabl e Encounter Details Date Type Department Care Team (Late st Contact Info) Description 11/25/2018 Transcribed Document [facility] [place] [address] [place] [address] ProviderErika MD [address] [place] [address] Social History Tobacco Use [...]
--- OUTSIDE RECORDS SUMMARY | 2025-05-29 08:58 | XMS_ITS | Encounter Summary ---
Author Organization [employer] ([place], [place], [place], [place]) Address [address] [place] [address] Care Team Providers Care Production Cook Name Role Phone Unavailable Primary Care Provider Unavailabl e Encounter Details Date Type Department Care Team (Late st Contact Info) Description 11/17/2018 Transcribed Document [facility] [place] [address] [place] [address] ProviderErika MD [address] [place] [address] Social History Tobacco Use Types [...]
--- OUTSIDE RECORDS SUMMARY | 2025-05-29 08:58 | XMS_ITS | Encounter Summary ---
Author Organization [employer] ([place], [place], [place], [place]) Address [address] [place] [address] Care Team Providers Care Home Child Care Provider Name Role Phone Unavailable Primary Care Provider Unavailabl e Encounter Details Date Type Department Care Team (Late st Contact Info) Description 11/29/2018 Transcribed Document [facility] Family Medicine [address] [place] [address] ProviderErika MD [address] [place] [address] Social History Tobacco Use Types [...] ProviderMD - 11/29/2018 2:30 PM CDT [facility] Onel PreOp Summary Primary Physician: RIGOBERTO YU MD Finalized Date/Time: 11/29/18 14:12:35 Pt. Name: DOTTIE VILLASENOR Ladan /Sex: 1940 Male Med Rec #: [id number] Physician: JULIO CESAR CARVALHO MD-[facility] Financial #: [id number] Pt. Type: I Room/Bed: 330/1 Admit/Disch: 11/16/18 06:45:00 - Institution: [facility] Onel PreOp Case Times Entry 1 In Preop 11/29/18 13:59:00 Ready for Holding n/a Room Patient Ready for 11/29/18 14:12:00 Surgery Patient Out of Preop 11/29/18 14:12:00 Patient Out of n/a Holding Room Last Modified By: Gem Osborne Rn 11/29/18 14:12:33 [facility] Endo PreOp Case Times Audit 11/29/18 14:12:33 Manager Food Beverage: ASHLEYSTAPLETON Modifier: ASHLEYSTAPLETON <+> 1 Patient Out of Preop <+> 1 Patient Ready for Surgery Finalized By: Gem Osborne Rn Document Signatures Signed By: Gem Osborne Rn 11/29/18 14:12 documented in this encounter Plan of Treatment Not on file documented as of this encounter Visit Diagnoses Not on filedocumented in this encounter
--- OUTSIDE RECORDS SUMMARY | 2025-05-29 08:58 | XMS_ITS | Encounter Summary ---
Author Organization [employer] ([place], [place], [place], [place]) Address [address] [place] [address] Care Team Providers Care Recycling Assistant Name Role Phone Unavailable Primary Care Provider Unavailabl e Encounter Details Date Type Department Care Team (Late st Contact Info) Description 12/01/2018 Transcribed Document [facility] [place] Family [place] [address] [place] [address] ProviderErika MD [address] [place] [address] Social History Tobacco Use Types [...]
--- OUTSIDE RECORDS SUMMARY | 2025-05-29 08:58 | XMS_ITS | Encounter Summary ---
Author Organization [employer] ([place], [place], [place], [place]) Address [address] [place] [address] Care Team Providers Care Executive Consultant Name Role Phone Unavailable Primary Care Provider Unavailabl e Encounter Details Date Type Department Care Team (Late st Contact Info) Description 11/18/2018 Transcribed Document [facility] [place] Family [place] [address] [place] [address] ProviderErika MD [address] [place], [place] [id number] Social History Tobacco Use Types Packs/Day Years [...] 1940 Associated Diagnoses: CAD (coronary artery disease), cachil dehe coronary artery; Thrombocytopenia; Coronary artery disease; [...] S1, S2, No edema. Integumentary: Warm, Dry, [place], incision is C/D/I. Neurologic: Alert, he did [...] Prophylaxis: SCDs Diagnosis CAD (coronary artery disease), cachil dehe coronary artery - Admitting, Medical. Thrombocytopenia - Working, Medical. Coronary artery disease - Discharge, Medical. HTN (hypertension) - Pre-Op Diagnosis, Medical. Hypothyroidism - Pre-Op Diagnosis, Medical. Aortic insufficiency - Admitting, Medical. Aortic insufficiency - Discharge, Medical. RLS (restless legs syndrome) - Pre-Op Diagnosis, Medical. Thoracic ascending aortic aneurysm - Admitting, Medical. Thoracic ascending aortic aneurysm - Discharge, Medical. Electronically signed by Parveen, [facility] Conversion Informatics Nurse Cerner at 12/08/2022 12:19 PM CDT documented in this encounter Plan of Treatment Not on file documented as of this encounter Visit Diagnoses Not on filedocumented in this encounter
--- OUTSIDE RECORDS SUMMARY | 2025-05-29 08:58 | XMS_ITS | Encounter Summary ---
Author Organization [employer] ([place], [place], [place], [place]) Address [address] [place] [address] Care Team Providers Care Supervisory Cbp Officer Name Role Phone Unavailable Primary Care Provider Unavailabl e Encounter Details Date Type Department Care Team (Late st Contact Info) Description 12/01/2018 Transcribed Document [facility] [place] [address] [place] [address] ProviderErika MD [address] [place], [...]
--- OUTSIDE RECORDS SUMMARY | 2025-05-29 08:58 | XMS_ITS | Encounter Summary ---
Author Organization [employer] ([place], [place], [place], [place]) Address [address] [place] [address] Care Team Providers Care Casino Operations Supervisor Name Role Phone Unavailable Primary Care Provider Unavailabl e Encounter Details Date Type Department Care Team (Late st Contact Info) Description 11/18/2018 Transcribed Document [facility] [place] Family Medicine [address] [place] [address] ProviderErika MD [address] [place] [address] Social History Tobacco Use Types [...] EDT Electronically signed by Christina Saini Conversion Electrogalvanizing Machine Operator Cerner at 12/08/2022 12:26 PM CDT documented in this encounter Plan of Treatment Not on file documented as of this encounter Visit Diagnoses Not on filedocumented in this encounter
--- OUTSIDE RECORDS SUMMARY | 2025-05-29 08:58 | XMS_ITS | Encounter Summary ---
Author Organization [employer] ([place], [place], [place], [place]) Address [address] [place] [address] Care Team Providers Care Director Of Outreach Name Role Phone Unavailable Primary Care Provider Unavailabl e Encounter Details Date Type Department Care Team (Late st Contact Info) Description 11/25/2018 Transcribed Document [facility] [place] Family Medicine [address] [place] [address] ProviderErika MD [address] [place] [address] Social History Tobacco Use Types [...] at goal rate. Did have BM yesterday. WARP PREPARER okayed pt for po diet this am- [...] (11/24) BMI: 23 IBW: 79kg/100% EST NEEDS: 3454-1184 kcal (25-30kcal/kg), 95g pro (1.2g/kg) DAVION GREEN [...]
--- OUTSIDE RECORDS SUMMARY | 2025-05-29 08:58 | XMS_ITS | Encounter Summary ---
Author Organization [employer] ([place], [place], [place], [place]) Address [address] [place] [address] Care Team Providers Care Open Hearth Door Liner Name Role Phone Unavailable Primary Care Provider Unavailabl e Encounter Details Date Type Department Care Team (Late st Contact Info) Description 11/25/2018 Transcribed Document [facility] [place] [address] [place] [address] ProviderErika MD [address] [place] [address] Social History Tobacco Use Types [...] On: 11/25/2018 12:20 EDT by THERESA CAZARES [facility] Clinical Interventions Heparin Per Weight-Based Protocol : Yes THERESA CAZARES [facility] - 11/25/2018 12:20 EDT Heparin Per Weight-Based [...]
--- OUTSIDE RECORDS SUMMARY | 2025-05-29 08:58 | XMS_ITS | Encounter Summary ---
Author Organization [employer] ([place], [place], [place], [place]) Address [address] [place] [address] Care Team Providers Care Budget Engineer Name Role Phone Unavailable Primary Care Provider Unavailabl e Encounter Details Date Type Department Care Team (Late st Contact Info) Description 11/30/2018 Transcribed Document [facility] [place] Family [place] [address] [place] [address] ProviderErika MD [address] [place] [address] Social History Tobacco Use Types [...] signed by Christina Saini Conversion Director Of Retail Operations Cerner at 12/08/2022 12:25 PM CDT documented in this encounter Plan of Treatment Not on file documented as of this encounter Visit Diagnoses Not on filedocumented in this encounter
--- OUTSIDE RECORDS SUMMARY | 2025-05-29 08:58 | XMS_ITS | Encounter Summary ---
Author Organization [employer] ([place], [place], [place], [place]) Address [address] [place] [address] Care Team Providers Care Manager Molecular Name Role Phone Unavailable Primary Care Provider Unavailabl e Encounter Details Date Type Department Care Team (Late st Contact Info) Description 11/18/2018 Transcribed Document [facility] [place] [address] [place] [address] ProviderErika MD [address] [place] [address] Social History Tobacco Use [...]
--- OUTSIDE RECORDS SUMMARY | 2025-05-29 08:58 | XMS_ITS | Encounter Summary ---
Author Organization [employer] ([place], [place], [place], [place]) Address [address] [place] [address] Care Team Providers Care Traffic And Transport Planner Name Role Phone Unavailable Primary Care Provider Unavailabl e Encounter Details Date Type Department Care Team (Late st Contact Info) Description 11/30/[address] [facility] [place] Family Medicine [address] [place] [address] ProviderErika MD [address] [place] [address] Social History Tobacco Use Types [...]
--- OUTSIDE RECORDS SUMMARY | 2025-05-29 08:58 | XMS_ITS | Encounter Summary ---
Author Organization [employer] ([place], [place], [place], [place]) Address [address] [place] [address] Care Team Providers Care Buckle Strap Puncher Name Role Phone Unavailable Primary Care Provider Unavailabl e Encounter Details Date Type Department Care Team (Late st Contact Info) Description 11/23/2018 Transcribed Document [facility] [place] Family [place] [address] [place] [address] ProviderErika MD [address] [place] [address] Social History Tobacco Use Types [...]
--- OUTSIDE RECORDS SUMMARY | 2025-05-29 08:58 | XMS_ITS | Encounter Summary ---
Author Organization [employer] ([place], [place], [place], [place]) Address [address] [place] [address] Care Team Providers Care Wrapper Caser Name Role Phone Unavailable Primary Care Provider Unavailabl e Encounter Details Date Type Department Care Team (Late st Contact Info) Description 11/25/2018 Transcribed Document [facility] [place] Family [place] [address] [place] [address] ProviderErika MD [address] [place] [address] Social History Tobacco Use Types [...] EDT Performed On: 11/25/2018 17:00 EDT by Elisas Rodarte RN Chart Check Chart Reviewed Date and Time : 11/25/2018 16:38 EDT [employer] Initiated/Discontinued as Appropriate : Yes All Active Orders Reviewed : Yes Elissa Rodarte RN - 11/25/2018 16:38 EDT documented in this encounter Plan of Treatment Not on file documented as of this encounter Visit Diagnoses Not on filedocumented in this encounter
--- OUTSIDE RECORDS SUMMARY | 2025-05-29 08:58 | XMS_ITS | Encounter Summary ---
Author Organization [employer] ([place], [place], [place], [place]) Address [address] [place] [address] Care Team Providers Care Surveillance Observer Name Role Phone Unavailable Primary Care Provider Unavailabl e Encounter Details Date Type Department Care Team (Late st Contact Info) Description 11/18/2018 Transcribed Document [facility] Cardiology [address] [place] [address] Lc Armendariz MD [address] [facility] [address] [place] [address] Social History Tobacco Use Types [...] mg, Oral, At Bedtime saliva substitutes: 1 [place], Buccal, Q2H, PRN: Other (See Comment) sodium [...] of motion, Normal strength. Integumentary: Warm, Dry, [place]. Neurologic: Alert, Oriented. Psychiatric: Cooperative, Appropriate mood & affect. Results Review NOV 18 03:37 138 106 19 / H 200 3.8 27 0.90 \ NOV 18 03:37 \ L 10.2 / H 17.7 L 103 / L 30.3 \ Cardiac Markers (Current Encounter/Past 24 Hours) No Cardiac Marker Results Found (Past 24 Hours) Radiology Results (Last 48 hours) [id number] -- 11/16/2018 06:45 CR Chest 1 Vw Portable (11/16/2018 12:55) Result: PORTABLE CHEST HISTORY: Pneumothorax.COMPARISON: 1 day prior.FINDINGS: The heart is stable in size. The patient is status post mediansternotomy. The endotracheal tube is in the mid thoracic trachea. Anasogastric tube extends below the diaphragm. Left-sided Spofford-Ganzcatheter tip is in the left main pulmonary [...] day.FINDINGS: The heart is normal in size. Spofford-Jovanna catheter tips in theleft pulmonary artery. There [...]
--- OUTSIDE RECORDS SUMMARY | 2025-05-29 08:58 | XMS_ITS | Encounter Summary ---
Author Organization [employer] ([place], [place], [place], [place]) Address [address] [place] [address] Care Team Providers Care Seed Buyer Name Role Phone Unavailable Primary Care Provider Unavailabl e Encounter Details Date Type Department Care Team (Late st Contact Info) Description 11/23/2018 Transcribed Document [facility] [place] [address] [place] [address] ProviderErika MD [address] [place] [address] Social History Tobacco Use Types [...] Tab, Oral, At Bedtime saliva substitutes, 1 [place], Buccal, Q2H, PRN Senokot, 17.2 mg= 2 Tab, Oral, BID Zofran, 4 mg= 2 mL, IV Push, Q4H, PRN Electronically signed by Parveen, [facility] Conversion Demolition Hammer Operator Cerner at 12/08/2022 12:26 PM CDT documented in this encounter Plan of Treatment Not on file documented as of this encounter Visit Diagnoses Not on filedocumented in this encounter
--- OUTSIDE RECORDS SUMMARY | 2025-05-29 08:58 | XMS_ITS | Encounter Summary ---
Author Organization [employer] ([place], [place], [place], [place]) Address [address] [place] [address] Care Team Providers Care Mechanical Striper Name Role Phone Unavailable Primary Care Provider Unavailabl e Encounter Details Date Type Department Care Team (Late st Contact Info) Description 11/17/2018 Transcribed Document [facility] [place] Family Medicine [address] [place] [address] ProviderErika MD [address] [place] [...] EDT Electronically signed by Christina Saini Conversion Hog Confinement System Manager Cerner at 12/08/2022 12:31 PM CDT documented in this encounter Plan of Treatment Not on file documented as of this encounter Visit Diagnoses Not on filedocumented in this encounter
--- OUTSIDE RECORDS SUMMARY | 2025-05-29 08:58 | XMS_ITS | Encounter Summary ---
Author Organization [employer] ([place], [place], [place], [place]) Address [address] [place] [address] Care Team Providers Care Granite Cutter Apprentice Name Role Phone Unavailable Primary Care Provider Unavailabl e Encounter Details Date Type Department Care Team (Late st Contact Info) Description 11/18/2018 Transcribed Document [facility] [place] [address] [place] [address] ProviderErika MD [address] [place] [address] Social History Tobacco Use Types [...] : 11/17/2018 00:00 Atherosclerotic heart disease of [place] coronary artery without angina pectoris 11/17/2018 00:00 Essential (primary) hypertension 11/17/2018 00:00 Hypothyroidism, unspecified 11/17/2018 00:00 Nonrheumatic aortic (valve) insufficiency 11/17/2018 00:00 Restless legs syndrome 11/17/2018 00:00 Thoracic aortic aneurysm, without rupture 11/17/2018 00:00 Thrombocytopenia, unspecified 11/16/2018 00:00 Atherosclerotic heart disease of [place] coronary artery without angina pectoris 11/16/2018 00:00 [...] SENIA QUINTANA PTA - 11/23/2018 10:24 EDT Fpc Goals Mobility/Bed Mobility LTG PT Grid Goal [...] SENIA QUINTANA PTA - 11/23/2018 10:24 EDT Parchment PT Charges PT Therap. Exercise 15 min : 1 PT Ther Activities Ea 15 Min : 1 SENIA QUINTANA PTA - 11/23/2018 10:24 EDT documented in this encounter Plan of Treatment Not on file documented as of this encounter Visit Diagnoses Not on filedocumented in this encounter
--- OUTSIDE RECORDS SUMMARY | 2025-05-29 08:58 | XMS_ITS | Encounter Summary ---
Author Organization [employer] ([place], [place], [place], [place]) Address [address] [place] [address] Care Team Providers Care Grounds Foreman Name Role Phone Unavailable Primary Care Provider Unavailabl e Encounter Details Date Type Department Care Team (Late st Contact Info) Description 11/18/2018 Transcribed Document [facility] [place] Family Medicine [address] [place] [address] ProviderErika MD [address] [place] [address] Social History Tobacco Use Types [...] Source : Measured Height Entry Format : Tofte Height, Feet : 6 ft Height, Inches [...]
--- OUTSIDE RECORDS SUMMARY | 2025-05-29 08:58 | XMS_ITS | Encounter Summary ---
Author Organization [employer] ([place], [place], [place], [place]) Address [address] [place] [address] Care Team Providers Care Lens Mold Setter Name Role Phone Unavailable Primary Care Provider Unavailabl e Encounter Details Date Type Department Care Team (Late st Contact Info) Description 11/30/2018 Transcribed Document [facility] [place] Family Medicine [address] [place] [address] ProviderErika MD [address] [place] [address] Social History Tobacco Use Types [...]
--- OUTSIDE RECORDS SUMMARY | 2025-05-29 08:58 | XMS_ITS | Encounter Summary ---
Author Organization [employer] ([place], [place], [place], [place]) Address [address] [place] [address] Care Team Providers Care Weight Count Operator Name Role Phone Unavailable Primary Care Provider Unavailabl e Encounter Details Date Type Department Care Team (Late st Contact Info) Description 12/01/2018 Transcribed Document [facility] [place] Family Medicine [address] [place] [address] ProviderErika MD [address] [place] [address] Social History Tobacco Use Types [...] Jose MD - 12/01/2018 1:[address] [facility] [place] [address] DOTTIE VILLASENOR :1940 Visit Time:11/16/2018 Your Visit Summary Your Care Team Admitting Physician - JULIO CESAR CARVALHO MD-CAT Attending Physician - JULIO CESAR CARVALHO MD-YADIRA Primary Care Physician - DEMETRICE ARMIJO NP-FAM Referring Physician - DEMETRICE ARMIJO NP-FAM Your Diagnosis Acute blood loss anemia Aortic insufficiency, Aortic insufficiency CAD (coronary artery disease), [place] coronary artery, Coronary artery disease GI bleed [...] Your Care Team [facility]-Stroke [facility] RN report #[phone] DC Summary #[phone] You may shower. Make sure your back [...] IF you have a fever greater than [address], call the surgeon. DO NOT drive for [...] Where: [address] [place] [address]- Business (1) Follow Up with JULIO CESAR CARVALHO When 12/15/2018 12:15 PM EDT Where: [address] [place] [address] Business (1) Follow Up with DEMETRICE ARMIJO When Within 1 week Comments When you are discharged from [facility] please call to make a 1 week hospital follow-up appointment. Where: [address] [place] [address]- Follow Up with JOHN BOWEN When Within 6 weeks Comments Patient should call for a follow up appointment with [facility] Neurology. Where: [address] [place] [address]- Business (1) Medications What How [...] contain harmful chemicals. FOR MORE INFORMATION ??? [place] Lung Association: www.lung.org ??? [place] Cancer Society: www.cancer.org This information is not intended to replace advice given to you by your health care provider. Make sure you discuss any questions you have with your health care provider. Document Released: 09/17/2005 Document Revised: 12/01/2016 Document Reviewed: 01/30/2014 ElseSynosia The[employer] Interactive Patient Education ?? 2017 [employer] Inc. How to Take Your Blood Pressure [...] 07/23/2009 Document Revised: 08/31/2015 Document Reviewed: 10/05/2014 [employer] Interactive Patient Education ?? 2017 [employer] Inc. How to Take a Pulse Your [...] 02/14/2004 Document Revised: 02/27/2017 Document Reviewed: 01/13/2017 [employer] Interactive Patient Education ?? 2017 [employer]. Coronary Artery Bypass Grafting, Care After [...] 02/27/2006 Document Revised: 08/31/2015 Document Reviewed: 01/17/2014 [employer] Interactive Patient Education ?? 2017 [employer] Inc. Bleeding Precautions When on Anticoagulant Therapy [...] can be dangerous for you. ??? Many xsse-mco-gftvaiz medicines for pain, colds, or stomach problems [...] provider. Document Released: 07/21/2016 Document Reviewed: 07/21/2016 [employer] Interactive Patient Education ?? 2017 [employer]. Atrial Fibrillation Introduction Atrial fibrillation is a [...] Follow these instructions at home: ??? Take kpod-ore-rzbvcxi and prescription medicines only as told by [...] 09/17/2005 Document Revised: 01/15/2017 Document Reviewed: 02/10/2014 [employer] Interactive Patient Education ?? 2017 [employer]. misoprostol (reji ramos) [facility] What is the most [...] may report side effects to FDA at 1-550-JHY-0087. What other drugs will affect misoprostol? Other drugs may interact with misoprostol, including prescription and ufrl-rmx-zwgzsxu medicines, vitamins, and herbal products. Tell each [...] to ensure that the information provided by [employer]. ('Multum') is accurate, up-to-date, and complete, but no guarantee is made to that effect. Drug information contained herein may be time sensitive. mth sense information has been compiled for use by healthcare practitioners and consumers in the [place] and therefore mth sense does not warrant that uses outside of the [place] are appropriate, unless specifically indicated otherwise. Exo[employer]ous drug information does not endorse drugs, diagnose patients or recommend therapy. ExoYous drug information is an informational resource designed [...] effective or appropriate for any given patient. mth sense does not assume any responsibility for any aspect of healthcare administered with the aid of information mth sense provides. The information contained herein is not intended to cover all possible uses, directions, precautions, warnings, drug interactions, allergic reactions, or adverse effects. If you have questions about the drugs you are taking, check with your doctor, nurse or pharmacist. Copyright 0005-1114 [employer]. Version: 8.01. Revision Date: 03/02/2014.sucralfate (oral) (angelica [...] may report side effects to FDA at 2-541-SEO-6774. What other drugs will affect sucralfate? Sucralfate can make it harder for your body to absorb other medications you take by mouth. Avoid taking any other medications within 2 hours before or after you take sucralfate. Other drugs may interact with sucralfate, including prescription and ffgc-hrl-cxjyygb medicines, vitamins, and herbal products. Tell each [...] to ensure that the information provided by [employer]. ('Multum') is accurate, up-to-date, and complete, but no guarantee is made to that effect. Drug information contained herein may be time sensitive. mth sense information has been compiled for use by healthcare practitioners and consumers in the [place] and therefore mth sense does not warrant that uses outside of the [place] are appropriate, unless specifically indicated otherwise. ExoYous drug information does not endorse drugs, diagnose patients or recommend therapy. ExoYous drug information is an informational resource designed [...] effective or appropriate for any given patient. mth sense does not assume any responsibility for any aspect of healthcare administered with the aid of information mth sense provides. The information contained herein is not intended to cover all possible uses, directions, precautions, warnings, drug interactions, allergic reactions, or adverse effects. If you have questions about the drugs you are taking, check with your doctor, nurse or pharmacist. Copyright 3340-4423 [employer]. Version: 8.01. Revision Date: 01/03/2013.sucralfate (oral) (angelica [...] may report side effects to FDA at 8-808-ERZ-3358. What other drugs will affect sucralfate? Sucralfate can make it harder for your body to absorb other medications you take by mouth. Avoid taking any other medications within 2 hours before or after you take sucralfate. Other drugs may interact with sucralfate, including prescription and vtqc-kxc-lvjklfw medicines, vitamins, and herbal products. Tell each [...] to ensure that the information provided by [employer]. ('Multum') is accurate, up-to-date, and complete, but no guarantee is made to that effect. Drug information contained herein may be time sensitive. mth sense information has been compiled for use by healthcare practitioners and consumers in the [place] and therefore mth sense does not warrant that uses outside of the [place] are appropriate, unless specifically indicated otherwise. ExoYous drug information does not endorse drugs, diagnose patients or recommend therapy. ExoYous drug information is an informational resource designed [...] effective or appropriate for any given patient. mth sense does not assume any responsibility for any aspect of healthcare administered with the aid of information Merged With [facility] provides. The information contained herein is not intended to cover all possible uses, directions, precautions, warnings, drug interactions, allergic reactions, or adverse effects. If you have questions about the drugs you are taking, check with your doctor, nurse or pharmacist. Copyright 7828-6587 [employer]. Version: 8.01. Revision Date: 01/03/2013. Emergency Awareness [...] Assistance with quitting is available by contacting 9-142-OXYXEmunamedicaNOW. This is a free resource providing counseling, [...]
--- OUTSIDE RECORDS SUMMARY | 2025-05-29 08:58 | XMS_ITS | Encounter Summary ---
Author Organization [email or web address] ([place], [place], [place], [place]) Address [address] [place] [address] Care Team Providers Care Commodity Buyer Name Role Phone Unavailable Primary Care Provider Unavailabl e Encounter Details Date Type Department Care Team (Late st Contact Info) Description 12/01/2018 Transcribed Document [facility] [place] Family Medicine [address] [place] [address] ProviderErika MD [address] [place] [address] Social History Tobacco Use Types [...] On: 12/01/2018 13:36 EDT by NAIN JARRETT analysis mgr Documentation Discharge Date/Time : 12/01/2018 15:13 EDT NAIN JARRETT RN - 12/01/2018 16:34 EDT Patient Disposition, General : Discharge Discharge To : Rehabilitation unit/facility Name of Receiving Facility/Provider : [facility] Mode Of Departure, General Discharge : [...] information provided to patient and discussed at [place]. Verbalized understanding. Worker's Compensation Paperwork Completed : NAIN Gomez RN - 12/01/2018 13:36 EDT documented in this encounter Plan of Treatment Not on file documented as of this encounter Visit Diagnoses Not on filedocumented in this encounter
--- OUTSIDE RECORDS SUMMARY | 2025-05-29 08:58 | XMS_ITS | Clinical Summary ---
Author Organization [facility] Address [address] [place] [phone] Phone Care Team Providers Care Children'S Nursery Assistant Name Role Phone Svitlana Manley MD Primary [...] [place] PART A AND B Care Teams Children'S Nursery Assistant Relationship Specialty Start Date End Date Svitlana Manley MD [address] [place] [phone] PCP - General Family Medicine 04/10/16
--- OUTSIDE RECORDS SUMMARY | 2025-05-29 08:58 | XMS_ITS | Encounter Summary ---
Author Organization [employer] ([place], [place], [place], [place]) Address [address] [place] [address] Care Team Providers Care Grapple Operator Name Role Phone Unavailable Primary Care Provider Unavailabl e Encounter Details Date Type Department Care Team (Late st Contact Info) Description 12/01/2018 Transcribed Document [facility] [place] [facility] [place] [address] ProviderErika MD [address] [place] [address] Social History Tobacco Use [...] Jose MD - 12/01/2018 1:32 PM CDT [address] [address] Patient Copy Patient Information: Name: DOTTIE VILLASENOR Current Date: 12/01/2018 13:32:25 : 1940 Patient Address: [address] [place] [phone] Patient Attending Physician: JULIO CESAR CARVALHO MD-CAT Primary Care Provider: DEMETRICE ARMIJO NP-[facility] Primary Care Provider Discharge Diagnosis: Acute blood loss anemia; Aortic insufficiency; Coronary artery disease; GI bleed; LUE DVT (deep venous thrombosis); Right MCA CVA (cerebral vascular accident); Thoracic ascending aortic aneurysm Weight on Admission: 174 lb, 5 oz Weight at Discharge: 159 lb Comment: Follow-up Instructions: With: Address: When: DEMETRICE ARMIJO [address] [place], [place] [id number] Within 1 week Comments: When you are discharged from [facility] please call to make a 1 week hospital follow-up appointment. With: Address: When: JULIO CESAR DEY [address] [place] [address] Business (1) 1:15 PM With: Address: When: JULIO CESAR CARVALHO [address] [place] [address] Business (1) Within 2 weeks With: Address: When: JOHN BOWEN [address] [place] [address] Business (1) Within 6 weeks Comments: Patient should call for a follow up appointment with [facility] Neurology. Discharge Instructions: Driving after Discharge: Do not drive, Other: No driving or operating heavy machinery until released by a physician. Community Services: Outpt Cardiac Rehab [facility] [phone] They will call pt w/ appt time. [...] 09/17/2005 Document Revised: 01/15/2017 Document Reviewed: 02/10/2014 [employer] Interactive Patient Education ? 2017 [employer]. CIGARETTE SMOKING: The facts are clear, cigarette smoking will shorten your life. Smoking can cause many illnesses along the way. As a healthcare provider, we recommend that you stop smoking. Assistance with quitting is available by contacting 1-635-ARFI-NOW. This is a free resource providing counseling, [...] Be sure to sign up for the [employer] patient portal, which gives you 16/03 access to your medical information ??? including these discharge instructions ??? using your computer, smartphone, or tablet. Just go to [employer] to get started. Questions? Call . [facility] would like to thank you for allowing us to assist you with your healthcare needs. HAMILTON Jarvis ROBERT H, (or cash applications representative) have received the above patient education materials/instructions and have verbalized understanding: Patient Signature _ Date/Time Patient Oracle Scm Consultant Signature (if needed) Date/Time Clinician/Hospital Oracle Scm Consultant Signature (if needed) Date/Time documented in this encounter Plan of Treatment Not on file documented as of this encounter Visit Diagnoses Not on filedocumented in this encounter
--- OUTSIDE RECORDS SUMMARY | 2025-05-29 08:58 | XMS_ITS | Encounter Summary ---
Author Organization [employer] ([place], [place], [place], [place]) Address [address] [place] [address] Care Team Providers Care Fowl Blood Tester Name Role Phone Unavailable Primary Care Provider Unavailabl e Encounter Details Date Type Department Care Team (Late st Contact Info) Description 11/25/2018 Transcribed Document [facility] [place] [address] [place] [address] ProviderErika MD [address] [place] [address] Social History Tobacco Use Types [...]
--- OUTSIDE RECORDS SUMMARY | 2025-05-29 08:58 | XMS_ITS | Encounter Summary ---
Author Organization [employer] ([place], [place], [place], [place]) Address [address] [place] [address] Care Team Providers Care Public Health Administrator Name Role Phone Unavailable Primary Care Provider Unavailabl e Encounter Details Date Type Department Care Team (Late st Contact Info) Description 12/01/2018 Transcribed Document [facility] [place] [address] [place] [address] ProviderErika MD [address] [place] [address] Social History Tobacco Use Types [...] contain harmful chemicals. FOR MORE INFORMATION ??? [place] [employer]: www.lung.org ??? [place] Cancer Society: www.cancer.org This information is not intended to replace advice given to you by your health care provider. Make sure you discuss any questions you have with your health care provider. Document Released: 09/17/2005 Document Revised: 12/01/2016 Document Reviewed: 01/30/2014 [employer] Interactive Patient Education ? 2017 [employer] Inc. How to Take Your Blood Pressure [...] 07/23/2009 Document Revised: 08/31/2015 Document Reviewed: 10/05/2014 Else[employer]fold[employer] Inc[employer] Interactive Patient Education ? 2017 Else[employer]fold, Inc. Inc. How to Take a Pulse Your [...] 02/14/2004 Document Revised: 02/27/2017 Document Reviewed: 01/13/2017 [employer] Interactive Patient Education ? 2017 [employer]. Coronary Artery Bypass Grafting, Care After [...] 02/27/2006 Document Revised: 08/31/2015 Document Reviewed: 01/17/2014 [employer]fold, [employer] Interactive Patient Education ? 2017 [employer]. Bleeding Precautions When on Anticoagulant Therapy [...] can be dangerous for you. ??? Many dqcs-tuu-xywdzyw medicines for pain, colds, or stomach problems [...] provider. Document Released: 07/21/2016 Document Reviewed: 07/21/2016 [employer] Interactive Patient Education ? 2017 [employer]. Atrial Fibrillation Introduction Atrial fibrillation is [...] Follow these instructions at home: ??? Take wgjs-gsf-kfafrkq and prescription medicines only as told by [...] 02/10/2014 Elsevier Interactive Patient Education ? 2017 ElseEnfold, Inc. Inc. documented in this encounter Plan of Treatment Not on file documented as of this encounter Visit Diagnoses Not on filedocumented in this encounter
--- OUTSIDE RECORDS SUMMARY | 2025-05-29 08:59 | XMS_ITS | Encounter Summary ---
Author Organization [employer] ([place], [place], [place], [place]) Address [address] [place] [address] Care Team Providers Care Administrative Judge Name Role Phone Unavailable Primary Care Provider Unavailabl e Encounter Details Date Type Department Care Team (Late st Contact Info) Description 11/20/2018 Transcribed Document [facility] [place] Family Medicine [address] [place] [address] ProviderErika MD [address] [place] [...] TORREY ZUNIGA SLP General Information Visit Type, PANELBOARD TANK PUMPER : Initial evaluation Patient Orders : PANELBOARD TANK PUMPER Fxnl Limitation Documentation x 1 -111 Start: 11/20/18 8:39:00 EDT - SYSTEM, SYSTEM PANELBOARD TANK PUMPER Bedside Swallow Evaluation - Start: 11/20/18 8:38:00 [...] Thoracic aortic aneurysm, without rupture Therapy Diagnosis, PANELBOARD TANK PUMPER : overt signs and symptoms of aspiration at bedside Previous Speech/Language Evaluations : N/A Previous Swallow Precautions : N/A Previous Cognitive Evaluations : N/A Diet/Intake Prior to Current Admission : Regular/thin Diet/Intake During Current Admission : NPO Intubation Comment, PANELBOARD TANK PUMPER : 11/16-11/17 Vital Signs RTF : Vitals [...] : Nasal cannula 3 L/min TORREY ZUNIGA PANELBOARD TANK PUMPER - 11/20/2018 9:21 EDT General Status Patient Received Status, PANELBOARD TANK PUMPER : Long sitting in bed Patient Left Status, PANELBOARD TANK PUMPER : Long sitting in bed TORREY ZUNIGA [...] Hoarse, Other: Weak Resonance Types : Appropriate PANELBOARD TANK PUMPER Cough : Weak Facial Appearance: : Symmetrical [...] noted with thin via straw and puree. PANELBOARD TANK PUMPER unable to determine safe diet at bedside, recommend FEES to further assess swallow function. Continue NPO with alternate means of nutrition and meds until FEES. PANELBOARD TANK PUMPER discussed results and recs with patient and family. TORREY ZUNIGA SLP - 11/20/2018 9:26 EDT Impressions, BS Swallow : Signs/Symptoms of pharyngeal dysphagia Swallowing Outcome Measures : Functional Oral Intake Scale (FOIS) Functional Oral Intake Scale (FOIS) : Level I TORREY ZUNIGA PANELBOARD TANK PUMPER - 11/20/2018 9:21 EDT Swallow Recommendations Recommended Diet Type, SwRec : Non-oral feeding, NPO Swallow Position, SwRec : Upright 90 degrees Recommended Med Present, SwRec : Non-oral Recommended Exam, Sw Rec : FEES Repeat Swallow Exam Timeframe : 1-3 days TORREY ZUNIGA SLP - 11/20/2018 9:26 EDT Therapy Indication Assessment PANELBOARD TANK PUMPER Indicated : Yes PANELBOARD TANK PUMPER Problem List : Impaired, Swallowing TORREY ZUNIGA SLP - 11/20/2018 9:26 EDT Swallow Plan/Goals Treatment Frequency, PANELBOARD TANK PUMPER : 4 times per wk Treatment Duration, PANELBOARD TANK PUMPER : Two weeks TORREY ZUNIGA SLP - 11/20/2018 9:26 EDT Swallow LTG Grid PANELBOARD TANK PUMPER Diesel Engine Ii Pipe Fitter Goal #1 Swallow LTG : Establish safe [...] TORREY ZUNIGA SLP - 11/20/2018 9:26 EDT PANELBOARD TANK PUMPER Education Assessment Grid 1 Diet Recommendation : Verbalizes understanding Dysphagia : Verbalizes understanding Non-Oral Nutrition : Verbalizes understanding NPO : Verbalizes understanding TORREY ZUNIGA SLP - 11/20/2018 9:26 EDT PANELBOARD TANK PUMPER Education Assessment Grid 2 Treatment Plan : Verbalizes understanding TORREY ZUNIGA SLP - 11/20/2018 9:[address] [facility] PANELBOARD TANK PUMPER Charges Evaluation Swallowing Function : 1 TORREY ZUNIGA SLP - 11/20/2018 9:26 EDT Functional Limitation Reporting, PANELBOARD TANK PUMPER Functional Limitation Visit Type, PANELBOARD TANK PUMPER : Initial evaluation Severity Determination Method, PANELBOARD TANK PUMPER : Clinical Judgment, Swallowing Swallow G8996 - Current Mod, PANELBOARD TANK PUMPER : 80 - 99% impaired, limited or restricted (CM) Swallow G8997 - Proj Goal Mod, PANELBOARD TANK PUMPER : 1 - 19% impaired, limited or restricted (CI) TORREY ZUNIGA SLP - 11/20/2018 9:26 EDT Electronically signed by Parveen [facility] Conversion Lithographic Press Feeder Cerner at 12/08/2022 12:30 PM CDT documented in this encounter Plan of Treatment Not on file documented as of this encounter Visit Diagnoses Not on filedocumented in this encounter
--- OUTSIDE RECORDS SUMMARY | 2025-05-29 08:59 | XMS_ITS | Encounter Summary ---
Author Organization [employer] ([place], [place], [place], [place]) Address [address] [place] [address] Care Team Providers Care District Superintendent Name Role Phone Unavailable Primary Care Provider Unavailabl e Encounter Details Date Type Department Care Team (Late st Contact Info) Description 12/01/2018 Transcribed Document [facility] [place] [address] [place] [address] ProviderErika MD [address] [place] [address] Social History Tobacco Use Types [...] MD - 12/01/2018 3:00 PM CDT [facility] [place] [address] VILLASENOR DOTTIE Pickering :1940 Visit Time:11/16/2018 Your Visit Summary Your Care Team Admitting Physician - JULIO CESAR CARVALHO MD-CAT Attending Physician - JULIO CESAR CARVALHO MD-YADIRA Primary Care Physician - DEMETRICE ARMIJO NP-FAM Referring Physician - DEMETRICE ARMIJO NP-FAM Your Diagnosis Acute blood loss anemia Aortic insufficiency, Aortic insufficiency CAD (coronary artery disease), [place]andreau coronary artery, Coronary artery disease GI bleed [...] do next Instructions From Your Care Team [facility]-Stroke Unit RN report #[phone] DC Summary #[phone] You may shower. Make sure your back [...] IF you have a fever greater than [address]387, call the surgeon. DO NOT drive for [...] Where: [address] [place] [address]- Business (1) Follow Up with JULIO CESAR CARVALHO When 12/15/2018 12:15 PM EDT Where: [address] [place] [address] Business (1) Follow Up with DEMETRICE ARMIJO When Within 1 week Comments When you are discharged from [facility] please call to make a 1 week hospital follow-up appointment. Where: [address] [place] [address]- Follow Up with JOHN BOWEN When Within 6 weeks Comments Patient should call for a follow up appointment with [facility]. Where: [address] [place] [address]- Business (1) Medications What How [...] 09/17/2005 Document Revised: 12/01/2016 Document Reviewed: 01/30/2014 [employer] Patient Education ?? 2017 [employer]. How to Take Your Blood Pressure HOW [...] 02/14/2004 Document Revised: 02/27/2017 Document Reviewed: 01/13/2017 [employer] Patient Education ?? 2017 [employer]. Coronary Artery Bypass Grafting, Care After [...] 02/27/2006 Document Revised: 08/31/2015 Document Reviewed: 01/17/2014 [employer] Patient Education ?? 2017 [employer]. Bleeding Precautions When on Anticoagulant Therapy [...] can be dangerous for you. ??? Many newk-xwg-yyvuene medicines for pain, colds, or stomach problems [...] provider. Document Released: 07/21/2016 Document Reviewed: 07/21/2016 [employer] Patient Education ?? 2017 [employer]. Atrial Fibrillation Introduction Atrial fibrillation is [...] Follow these instructions at home: ??? Take xbkt-ttw-nveyrtv and prescription medicines only as told by [...] 09/17/2005 Document Revised: 01/15/2017 Document Reviewed: 02/10/2014 [employer] Patient Education ?? 2017 [employer]. misoprostol (reji ramos) [facility] What is the most [...] disease; or ?? if you are dehydrated. [facility] category X. Misoprostol can cause defects, [...] may report side effects to FDA at 6-971-GMJ-6388. What other drugs will affect misoprostol? Other drugs may interact with misoprostol, including prescription and jcyd-deg-kptaznb medicines, vitamins, and herbal products. Tell each [...] to ensure that the information provided by [employer]. ('[employer]') is accurate, up-to-date, and complete, but no guarantee is made to that effect. Drug information contained herein may be time sensitive. [employer] information has been compiled for use by healthcare practitioners and consumers in the [place] and therefore [employer] does not warrant that uses outside of the [place] are appropriate, unless specifically indicated otherwise. [employer] drug information does not endorse drugs, diagnose patients or recommend therapy. [employer] drug information is an informational resource designed [...] effective or appropriate for any given patient. [facility] does not assume any responsibility for any aspect of healthcare administered with the aid of information [facility] provides. The information contained herein is not intended to cover all possible uses, directions, precautions, warnings, drug interactions, allergic reactions, or adverse effects. If you have questions about the drugs you are taking, check with your doctor, nurse or pharmacist. Copyright 9822-7938 [facility]. Version: 8.01. Revision Date: [...] may report side effects to FDA at 7-461-LXZ-7119. What other drugs will affect sucralfate? Sucralfate can make it harder for your body to absorb other medications you take by mouth. Avoid taking any other medications within 2 hours before or after you take sucralfate. Other drugs may interact with sucralfate, including prescription and ofzo-awo-ihxupvh medicines, vitamins, and herbal products. Tell each [...] to ensure that the information provided by [employer]. ('[employer]') is accurate, up-to-date, and complete, but no guarantee is made to that effect. Drug information contained herein may be time sensitive. [employer] information has been compiled for use by healthcare practitioners and consumers in the [place] and therefore [employer] does not warrant that uses outside of the [place] are appropriate, unless specifically indicated otherwise. [employer] drug information does not endorse drugs, diagnose patients or recommend therapy. [employer] drug information is an informational resource designed [...] effective or appropriate for any given patient. [employer] does not assume any responsibility for any aspect of healthcare administered with the aid of information [employer] provides. The information contained herein is not intended to cover all possible uses, directions, precautions, warnings, drug interactions, allergic reactions, or adverse effects. If you have questions about the drugs you are taking, check with your doctor, nurse or pharmacist. Copyright 5424-5156 [employer]. Version: 8.01. Revision Date: 01/03/2013.sucralfate (oral) (angelica [...] may report side effects to FDA at 0-427-MHA-8715. What other drugs will affect sucralfate? Sucralfate can make it harder for your body to absorb other medications you take by mouth. Avoid taking any other medications within 2 hours before or after you take sucralfate. Other drugs may interact with sucralfate, including prescription and ogko-kpr-xioojac medicines, vitamins, and herbal products. Tell each [...] to ensure that the information provided by [employer]. ('[employer]') is accurate, up-to-date, and complete, but no guarantee is made to that effect. Drug information contained herein may be time sensitive. [employer] information has been compiled for use by healthcare practitioners and consumers in the [place] and therefore [employer] does not warrant that uses outside of the [place] are appropriate, unless specifically indicated otherwise. [employer] drug information does not endorse drugs, diagnose patients or recommend therapy. [employer] drug information is an informational resource designed [...] effective or appropriate for any given patient. [facility] does not assume any responsibility for any aspect of healthcare administered with the aid of information [facility] provides. The information contained herein is not intended to cover all possible uses, directions, precautions, warnings, drug interactions, allergic reactions, or adverse effects. If you have questions about the drugs you are taking, check with your doctor, nurse or pharmacist. Copyright 2890-4453 [employer]. Version: 8.01. Revision Date: 01/03/2013. Emergency Awareness [...] Assistance with quitting is available by contacting 8-288-DJYV-NOW. This is a free resource providing counseling, [...]
--- OUTSIDE RECORDS SUMMARY | 2025-05-29 08:59 | XMS_ITS | Encounter Summary ---
Author Organization [employer] ([place], [place], [place], [place]) Address [address] [place] [address] Care Team Providers Care Community Outreach Coordinator Name Role Phone Unavailable Primary Care Provider Unavailabl e Encounter Details Date Type Department Care Team (Late st Contact Info) Description 11/21/2018 Transcribed Document [facility] [place] Family Medicine [address] [place] [address] ProviderErika MD [address] [place] [address] Social History Tobacco Use Types [...] 11/21/2018 9:37 EDT by José Miguel Tran, [facility] Phone Call for Consults Consult Phone Call/Page Attempt : Other: Nurse spoke to Dr. Amaro. José Miguel Tran [facility] - 11/21/2018 9:40 EDT documented in this encounter Plan of Treatment Not on file documented as of this encounter Visit Diagnoses Not on filedocumented in this encounter
--- OUTSIDE RECORDS SUMMARY | 2025-05-29 08:59 | XMS_ITS | Encounter Summary ---
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 Conversion Track Supervisor Cerner at 12/08/2022 12:16 PM CDT documented in this encounter Plan of Treatment Not on file documented as of this encounter Visit Diagnoses Not on filedocumented in this encounter
--- OUTSIDE RECORDS SUMMARY | 2025-05-29 08:59 | XMS_ITS | Encounter Summary ---
Author Organization [employer] ([place], [place], [place], [place]) Address [address] [place] [address] Care Team Providers Care Devops Solutions Architect Name Role Phone Unavailable Primary Care Provider Unavailabl e Encounter Details Date Type Department Care Team (Late st Contact Info) Description 12/01/2018 Transcribed Document [facility] [place] Family Medicine [address] [place] [address] ProviderErika MD [address] [place] [address] Social History Tobacco Use Types [...] KISHA BROWER, PT - 12/01/2018 18:30 EDT Web Production Manager Goals Mobility/Bed Mobility LTG PT Grid Goal [...]
--- OUTSIDE RECORDS SUMMARY | 2025-05-29 08:59 | XMS_ITS | Encounter Summary ---
Author Organization [employer] ([place], [place], [place], [place]) Address [address] [place] [address] Care Team Providers Care Rib Builder Name Role Phone Unavailable Primary Care Provider Unavailabl e Encounter Details Date Type Department Care Team (Late st Contact Info) Description 11/16/2018 Transcribed Document [facility] [address] [place] [address] Niles Nunez MD [address] [place], [place] [id number] Social History Tobacco Use Types Packs/Day Years [...]
--- OUTSIDE RECORDS SUMMARY | 2025-05-29 08:59 | XMS_ITS | Encounter Summary ---
Author Organization [employer] ([place], [place], [place], [place]) Address [address] [place] [address] Care Team Providers Care Sales Representative Electric Service Name Role Phone Unavailable Primary Care Provider Unavailabl e Encounter Details Date Type Department Care Team (Late st Contact Info) Description 11/28/[address] [facility] [place] [address] [place] [address] ProviderErika MD [address] [place] [address] Social History Tobacco Use [...]
--- OUTSIDE RECORDS SUMMARY | 2025-05-29 08:59 | XMS_ITS | Encounter Summary ---
Author Organization [employer] ([place], [place], [place], [place]) Address [address] [place] [address] Care Team Providers Care Carton Counter Feeder Name Role Phone Unavailable Primary Care Provider Unavailabl e Encounter Details Date Type Department Care Team (Late st Contact Info) Description 11/24/2018 Transcribed Document [facility] [place] Family Medicine [address] [place] [address] ProviderErika MD [address] [place] [address] Social History Tobacco Use Types [...] On: 11/24/2018 13:21 EDT by ODALYS FAULKNER Rn-Looper FixerAudio Experience Expert Note Care Management Note : 11/24/18 Andra from [facility] called to let me know they started a precert on this pt. CF Care Management Note Report : ODALYS FAULKNER Rn-Looper Fixer - 11/22/18 13:56:32 11/22/18 Pt has had a cva. Spoke to his Connie and son Sumeet at the bedside. Pt is lfacid on the left side. Discussed the need for STR and they decided on [facility]. Sent pt info via [employer] to [facility]. CF Documentation Status Complete : Yes ODALYS FAULKNER Rn-Looper Fixer - 11/24/2018 13:21 EDT Electronically signed by Parveen [facility] Conversion Photo Journalist Cerjuju at 12/08/2022 12:31 PM CDT documented in this encounter Plan of Treatment Not on file documented as of this encounter Visit Diagnoses Not on filedocumented in this encounter
--- OUTSIDE RECORDS SUMMARY | 2025-05-29 08:59 | XMS_ITS | Encounter Summary ---
Author Organization [employer] ([place], [place], [place], [place]) Address [address] [place] [address] Care Team Providers Care Flare Maker Name Role Phone Unavailable Primary Care Provider Unavailabl e Encounter Details Date Type Department Care Team (Late st Contact Info) Description 11/28/2018 Transcribed Document [facility] [place] [address] [place] [address] ProviderErika MD [address] [place] [address] Social History Tobacco Use Types [...] Jacob Coy MD Electronically signed by Parveen [facility] Conversion Food And Beverage Director Cerner at 12/08/2022 12:31 PM CDT documented in this encounter Plan of Treatment Not on file documented as of this encounter Visit Diagnoses Not on filedocumented in this encounter
--- OUTSIDE RECORDS SUMMARY | 2025-05-29 08:59 | XMS_ITS | Encounter Summary ---
Author Organization [employer] ([place], [place], [place], [place]) Address [address] [place] [address] Care Team Providers Care Hospice Administrator Name Role Phone Unavailable Primary Care Provider Unavailabl e Encounter Details Date Type Department Care Team (Late st Contact Info) Description 12/01/2018 Transcribed Document [facility] [place] [address] [place] [address] ProviderErika MD [address] [place], [place] [id number] Social History Tobacco Use Types Packs/Day Years [...] complaints. 11/30/18: No complaints, transferred back to [facility] yesterday 12/01/18: Up to chair today, hopefully to [facility] today Review of Systems Constitutional: [...] Musculoskeletal: left arm swelling. Integumentary: Warm, Dry, [place], incision is C/D/I. Neurologic: Alert, left sided [...] (Current Encounter/Past 24 Hours) PT 14.6 Second(s) [place] 12/01/2018 06:53 INR 1.4 [place] 12/01/2018 06:53 . Impression and Plan Plan: [...] time of discharge- has sent information to [facility] -Transfer to [facility] 11/24/18 -POD#8 -Awaiting transfer to [facility] -Awaiting response from [facility] 11/25/18 -POD#9 -left upper extremity venous doppler - doppler this am positive for LUE DVT - will start coumadin and heparin bridge -awaiting [facility] 11/26/18 -POD#10 -Heparin drip and coumadin for LUE DVT -Left arm swelling improved today -INR 1.1 today, INR goal 2-3 -Possibly transfer to [facility] this weekend 11/27/18: -POD#11 -Left arm swelling continues to improve -Continues on Coumadin and heparin bridge -INR: 1.4 (1.1 yesterday) goal: 2 to 3 -[facility] soon,? Tomorrow 11/28/18: -POD#12 -BP [...] blood has been set up. -Transferred to [facility] 11/29/18: -POD#13 -Upper endoscopy showed duodenal [...] D/C due to GI bleed. -Transfer to [facility] 11/30/18 POD # 14 EGD yesterday - duodenal ulceration with clot, no active bleeding and no intervention performed INR trending down, off coumadin and heparin Speech signed off yesterday - speech and cognition back to baseline Watch INR and H&H [facility] upon discharge 12/01/18 POD # 15 Bed available at [facility] today\.brTH stable, INR 1.4 EF [...] - Discharge, Medical. Electronically signed by Parveen [facility] Conversion Pharmacy Benefits Coordinator Cerner at 12/08/2022 12:20 PM CDT documented in this encounter Plan of Treatment Not on file documented as of this encounter Visit Diagnoses Not on filedocumented in this encounter
--- OUTSIDE RECORDS SUMMARY | 2025-05-29 08:59 | XMS_ITS | Encounter Summary ---
Author Organization [employer] ([place], [place], [place], [place]) Address [address] [place] [address] Care Team Providers Care Quality Assurance Assistant Name Role Phone Unavailable Primary Care Provider Unavailabl e Encounter Details Date Type Department Care Team (Late st Contact Info) Description 11/24/2018 Transcribed Document [facility] [place] Family Medicine [address] [place] [address] ProviderErika MD [address] [place] [address] Social History Tobacco Use Types [...]
--- OUTSIDE RECORDS SUMMARY | 2025-05-29 08:59 | XMS_ITS | Encounter Summary ---
Author Organization [employer] ([place], [place], [place], [place]) Address [address] [place] [address] Care Team Providers Care Insulation Worker Interior Surface Name Role Phone Unavailable Primary Care Provider Unavailabl e Encounter Details Date Type Department Care Team (Late st Contact Info) Description 11/16/2018 Transcribed Document [facility] [place] [address] [place] [address] ProviderErika MD [address] [place], [place] [id number] Social History Tobacco Use Types Packs/Day Years [...] disease - Discharge, Medical. Performed by: JULIO CSEAR CARVALHO MD-CAT. Operations And Maintenance Technican: ERASMO LÓPEZ PA. Notes: Procedure: Resection and [...]
--- OUTSIDE RECORDS SUMMARY | 2025-05-29 08:59 | XMS_ITS | Encounter Summary ---
Author Organization [employer] ([place], [place], [place], [place]) Address [address] [place] [address] Care Team Providers Care Horseradish Grinder Name Role Phone Unavailable Primary Care Provider Unavailabl e Encounter Details Date Type Department Care Team (Late st Contact Info) Description 11/24/2018 Transcribed Document [facility] [place] Family Medicine [address] [place] [address] ProviderErika MD [address] [place], [place] [phone] Social History Tobacco Use Types Packs/Day Years [...] Associated Diagnoses: CAD (coronary artery disease), [place] coronary artery; Thrombocytopenia; Coronary artery disease; HTN [...] S1, S2, No edema. Integumentary: Warm, Dry, [place], incision is C/D/I. Neurologic: Alert, left sided [...] CM has sent information to [facility] -Transfer to [facility] 11/24/18 -POD#8 -Awaiting transfer to [facility] -Awaiting response from [facility] EF 55-60% per echo 11/16/18 DVT Prophylaxis: SCDs Diagnosis CAD (coronary artery disease), [place] coronary artery - Admitting, Medical. Thrombocytopenia - [...] - Discharge, Medical. Electronically signed by Interface, [facility] Conversion Vascular Specialists Cerner at 12/08/2022 12:10 PM CDT documented in this encounter Plan of Treatment Not on file documented as of this encounter Visit Diagnoses Not on filedocumented in this encounter
--- OUTSIDE RECORDS SUMMARY | 2025-05-29 08:59 | XMS_ITS | Encounter Summary ---
Author Organization [employer] ([place], [place], [place], [place]) Address [address] [place] [address] Care Team Providers Care Ballistics Expert Name Role Phone Unavailable Primary Care Provider Unavailabl e Encounter Details Date Type Department Care Team (Late st Contact Info) Description 11/24/2018 Transcribed Document [facility] [place] [address] [place] [address] ProviderErika MD [address] [place] [address] Social History Tobacco Use Types Packs/Day Years Used Date Smoking Tobacco: Never Assessed Sex and Gender Information Value Date Recorded Sex Assigned at Not on file Legal Sex Male 5:03 PM CDT Gender Identity Not on file Sexual Orientation Not on file documented as of this encounter Miscellaneous Notes * Cerner Conversion Note - Historical ProviderMD - 11/24/2018 2:00 AM CDT Milieu Technician Details Entered On: 11/24/2018 3:36 EDT Performed [...]
--- OUTSIDE RECORDS SUMMARY | 2025-05-29 08:59 | XMS_ITS | Encounter Summary ---
Author Organization [employer] ([place], [place], [place], [place]) Address [address] [place] [address] Care Team Providers Care Booth Cashier Name Role Phone Unavailable Primary Care Provider Unavailabl e Encounter Details Date Type Department Care Team (Late st Contact Info) Description 11/30/2018 Transcribed Document [facility] [place] Medicine [address] [place] [address] ProviderErika MD [address] [place] [address] Social History Tobacco Use Types [...] Bed scale Routine Weight Entry Format : [place] Routine Weight, Pounds : 164 lb Routine Weight, Ounces : 1 oz Routine Weight Calculation : 74.57 kg Height Source : Measured Height Entry Format : [place] Height, Feet : 6 ft Height, Inches [...]
--- OUTSIDE RECORDS SUMMARY | 2025-05-29 08:59 | XMS_ITS | Encounter Summary ---
Author Organization [employer] ([place], [place], [place], [place]) Address [address] [place] [address] Care Team Providers Care Manager Zone Name Role Phone Unavailable Primary Care Provider Unavailabl e Encounter Details Date Type Department Care Team (Late st Contact Info) Description 11/16/2018 Transcribed Document [facility] [place] Family Medicine [address] [place] [address] ProviderErika MD [address] [place] [address] Social History Tobacco Use Types [...]
--- OUTSIDE RECORDS SUMMARY | 2025-05-29 08:59 | XMS_ITS | Encounter Summary ---
Author Organization [employer] ([place], [place], [place], [place]) Address [address] [place] [address] Care Team Providers Care Employment Specialist Name Role Phone Unavailable Primary Care Provider Unavailabl e Encounter Details Date Type Department Care Team (Late st Contact Info) Description 11/28/2018 Transcribed Document [facility] [place] Family Medicine [address] [place] [address] ProviderErika MD [address] [place], [place] [phone] Social History Tobacco Use Types Packs/Day Years [...] Spiritual Care Reason for Visit : Other: HOME CARE ASSOCIATE Intervention/Comment/Summary Points : Pt fell back to sleep after RNs finished assessing pt. No needs at this time. Faith Preference : [employer] MALU SHEPARD Chaplain-Non Cert - 11/28/2018 5:34 EDT documented in this encounter Plan of Treatment Not on file documented as of this encounter Visit Diagnoses Not on filedocumented in this encounter
--- OUTSIDE RECORDS SUMMARY | 2025-05-29 08:59 | XMS_ITS | Encounter Summary ---
Author Organization [employer] ([place], [place], [place], [place]) Address [address] [place] [address] Care Team Providers Care Wash Box Operator Name Role Phone Unavailable Primary Care Provider Unavailabl e Encounter Details Date Type Department Care Team (Late st Contact Info) Description 11/20/2018 Transcribed Document [facility] [place] [address] [place] [address] ProviderErika MD [address] [place], [place] [phone] Social History Tobacco Use Types Packs/Day Years [...] Bedtime, Routine HEENT saliva substitutes - 1 [place], Buccal, Liquid, Q2H, PRN for Other (See [...] Radiology results Radiology Results (Last 48 hours) [id number] -- 11/16/2018 06:45 CR Chest 1 Vw [...] Shortness of breathCOMPARISON: 1 day priorFINDINGS: A [place]ok[place]-Jovanna catheter tip terminates in the SVC. The Mokane-Ganzcatheter has been retracted. The cardiac silhouette is [...]
--- OUTSIDE RECORDS SUMMARY | 2025-05-29 08:59 | XMS_ITS | Encounter Summary ---
Author Organization [employer] ([place], [place], [place], [place]) Address [address] [place] [address] Care Team Providers Care Turn Down Attendant Name Role Phone Unavailable Primary Care Provider Unavailabl e Encounter Details Date Type Department Care Team (Late st Contact Info) Description 11/20/2018 Transcribed Document [facility] Pulm & Critical Care Medicine [address] [facility] [address] [place] [address] Eloy Rodrigues MD [address] [facility] [address] [address] [facility] [address] [place], [place] [address] Social History Tobacco Use Types Packs/Day Years [...] 16:32:27 Trans: 11/20/2018 22:52:43 Processed: 11/22/2018 09:57:30 [place] CC1: Eloy Rodrigues M.D. documented in this encounter Plan of Treatment Not on file documented as of this encounter Visit Diagnoses Not on filedocumented in this encounter
--- OUTSIDE RECORDS SUMMARY | 2025-05-29 08:59 | XMS_ITS | Encounter Summary ---
Author Organization [employer] ([place], [place], [place], [place]) Address [address] [place] [address] Care Team Providers Care Credit Counselor Name Role Phone Unavailable Primary Care Provider Unavailabl e Encounter Details Date Type Department Care Team (Late st Contact Info) Description 11/28/2018 Transcribed Document [facility] [place] Medicine [address] [place] [address] ProviderErika MD [address] [place] [address] Social History Tobacco Use Types [...] : Transfer to critical care Rapid Response Credit Counselor #1 : MICHAEL WALLER RN Rapid Response Credit Counselor #2 : DIA BINGHAM RN Rapid Response Credit Counselor #3 : SRINIVAS LEAL RN [place], [place], [...] Team Initiation Reason Details : 3E 333. DIRECTOR MEDICAL notified of pt with decrease in BP despite treatment. MD notified. Bolus given and pt labwork obtained. 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
--- OUTSIDE RECORDS SUMMARY | 2025-05-29 08:59 | XMS_ITS | Encounter Summary ---
Author Organization [employer] ([place], [place], [place], [place]) Address [address] [place] [address] Care Team Providers Care Mold Sheet Cleaner Name Role Phone Unavailable Primary Care Provider Unavailabl e Encounter Details Date Type Department Care Team (Late st Contact Info) Description 12/01/2018 Transcribed Document [facility] [place] [address] [place] [address] ProviderErika MD [address] [place] [address] Social History Tobacco Use Types Packs/Day Years Used Date Smoking Tobacco: Never Assessed Sex and Gender Information Value Date Recorded Sex Assigned at Not on file Legal Sex Male 5:03 PM CDT Gender Identity Not on file Sexual Orientation Not on file documented as of this encounter Miscellaneous Notes * Cerner Conversion Note - Historical ProviderMD - 12/01/2018 2:00 AM CDT Automatic Lehr Operator Details Entered On: 12/01/2018 0:23 EDT Performed [...]
--- OUTSIDE RECORDS SUMMARY | 2025-05-29 08:59 | XMS_ITS | Encounter Summary ---
Author Organization [employer] ([place], [place], [place], [place]) Address [address] [place] [address] Care Team Providers Care Production Painter Name Role Phone Unavailable Primary Care Provider Unavailabl e Encounter Details Date Type Department Care Team (Late st Contact Info) Description 11/28/2018 Transcribed Document [facility] [place] Family Medicine [address] [place] [address] ProviderErika MD [address] [place], [place] [address] Social History Tobacco Use Types Packs/Day Years [...]
--- OUTSIDE RECORDS SUMMARY | 2025-05-29 08:59 | XMS_ITS | Encounter Summary ---
Author Organization [employer] ([place], [place], [place], [place]) Address [address] [place] [address] Care Team Providers Care Scientific Database Curator Name Role Phone Unavailable Primary Care Provider Unavailabl e Encounter Details Date Type Department Care Team (Late st Contact Info) Description 11/28/2018 Transcribed Document [facility] [place] [address] [place] [address] ProviderErika MD [address] [place] [address] Social History Tobacco Use Types [...]
--- OUTSIDE RECORDS SUMMARY | 2025-05-29 08:59 | XMS_ITS | Encounter Summary ---
Author Organization [employer] ([place], [place], [place], [place]) Address [address] [place] [address] Care Team Providers Care Wholesaler Name Role Phone Unavailable Primary Care Provider Unavailabl e Encounter Details Date Type Department Care Team (Late st Contact Info) Description 11/16/2018 Transcribed Document [facility] [place] Family Medicine [address] [place] [address] ProviderErika MD [address] [place] [address] Social History Tobacco Use Types Packs/Day Years Used Date Smoking Tobacco: Never Assessed Sex and Gender Information Value Date Recorded Sex Assigned at Not on file Legal Sex Male 5:03 PM CDT Gender Identity Not on file Sexual Orientation Not on file documented as of this encounter Miscellaneous Notes * Cerner Conversion Note - Erika ProviderMD - 11/16/2018 7:30 AM CDT [facility] Main OR Preop Summary Primary Physician: JULIO CESAR CARVALHO MD-CAT Finalized Date/Time: 11/16/18 07:12:04 Pt. Name: DOTTIE VILLASENOR D.O.B./Sex: 1940 Male Med Rec #: [id number] Physician: JULIO CESAR CARVALHO MD-CAT Financial #: [id number] Pt. Type: I Room/Bed: ASA/8 Admit/Disch: 11/16/18 06:45:00 - Institution: [facility] PreOp Case Times Entry 1 In Preop [...]
--- OUTSIDE RECORDS SUMMARY | 2025-05-29 08:59 | XMS_ITS | Encounter Summary ---
Author Organization [employer] ([place], [place], [place], [place]) Address [address] [place] [address] Care Team Providers Care Tailor Fitter Name Role Phone Unavailable Primary Care Provider Unavailabl e Encounter Details Date Type Department Care Team (Late st Contact Info) Description 11/24/2018 Transcribed Document [facility] [place] [address] [place] [address] ProviderErika MD [address] [place] [address] Social History Tobacco Use Types [...]
--- OUTSIDE RECORDS SUMMARY | 2025-05-29 08:59 | XMS_ITS | Encounter Summary ---
Author Organization [employer] ([place], [place], [place], [place]) Address [address] [place] [address] Care Team Providers Care Dial Equipment Engineer Name Role Phone Unavailable Primary Care Provider Unavailabl e Encounter Details Date Type Department Care Team (Late st Contact Info) Description 11/28/2018 Transcribed Document [facility] [place] [address] [place] [address] ProviderErika MD [address] [place] [...] access. 20R shoulder x1 attempt using vein momd teacher. 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
--- OUTSIDE RECORDS SUMMARY | 2025-05-29 08:59 | XMS_ITS | Encounter Summary ---
Author Organization [employer] ([place], [place], [place], [place]) Address [address] [place] [address] Care Team Providers Care Medical Driver Name Role Phone Unavailable Primary Care Provider Unavailabl e Encounter Details Date Type Department Care Team (Late st Contact Info) Description 11/23/2018 Transcribed Document [facility] [place] Family Medicine [address] [place] [address] ProviderErika MD [address] [place] [address] Social History Tobacco Use Types [...]
--- OUTSIDE RECORDS SUMMARY | 2025-05-29 08:59 | XMS_ITS | Encounter Summary ---
Author Organization [employer] ([place], [place], [place], [place]) Address [address] [place] [address] Care Team Providers Care Senior Managing Director Name Role Phone Unavailable Primary Care Provider Unavailabl e Encounter Details Date Type Department Care Team (Late st Contact Info) Description 11/21/2018 Transcribed Document [facility] [place] [address] [place] [address] ProviderErika MD [address] [place] [address] Social History Tobacco Use [...]
--- OUTSIDE RECORDS SUMMARY | 2025-05-29 08:59 | XMS_ITS | Referral Summary ---
Author Organization [employer] ([place], [place], [place], [place]) Address [address] [place] [address] Care Team Providers Care Senior Partner Name Role Phone Unavailable Primary Care Provider [...]
--- OUTSIDE RECORDS SUMMARY | 2025-05-29 08:59 | XMS_ITS | Encounter Summary ---
Author Organization [employer] ([place], [place], [place], [place]) Address [address] [place] [address] Care Team Providers Care Dean Name Role Phone Unavailable Primary Care Provider Unavailabl e Encounter Details Date Type Department Care Team (Late st Contact Info) Description 11/16/2018 Transcribed Document [facility] [place] Family Medicine [address] [place] [address] ProviderErika MD [address] [place] [address] Social History Tobacco Use Types [...] : 11/17/2018 00:00 Atherosclerotic heart disease of [place] coronary artery without angina pectoris 11/17/2018 00:00 Essential (primary) hypertension 11/17/2018 00:00 Hypothyroidism, unspecified 11/17/2018 00:00 Nonrheumatic aortic (valve) insufficiency 11/17/2018 00:00 Restless legs syndrome 11/17/2018 00:00 Thoracic aortic aneurysm, without rupture 11/17/2018 00:00 Thrombocytopenia, unspecified 11/16/2018 00:00 Atherosclerotic heart disease of [place] coronary artery without angina pectoris 11/16/2018 00:00 [...] ROGER LEWIS, PT - 11/18/2018 16:07 EDT Skilled Nursing Goals Mobility/Bed Mobility LTG PT Grid Goal [...] ROGER LEWIS, PT - 11/18/2018 16:07 EDT [place] PT Charges PT Eval Moderate Complexity : 1 ROGER LEWIS, PT - 11/18/2018 16:07 EDT Electronically signed by Parveen, Christina Conversion Deputy Sheriff Building Guard Cerner at 12/08/2022 12:19 PM CDT documented in this encounter Plan of Treatment Not on file documented as of this encounter Visit Diagnoses Not on filedocumented in this encounter
--- OUTSIDE RECORDS SUMMARY | 2025-05-29 08:59 | XMS_ITS | Encounter Summary ---
Author Organization [employer] ([place], [place], [place], [place]) Address [address] [place] [address] Care Team Providers Care Triple Valve Mechanic Name Role Phone Unavailable Primary Care Provider Unavailabl e Encounter Details Date Type Department Care Team (Late st Contact Info) Description 12/01/2018 Transcribed Document [facility] [place] Family Medicine [address] [place] [address] ProviderErika MD [address] [place] [address] Social History Tobacco Use Types [...]
--- OUTSIDE RECORDS SUMMARY | 2025-05-29 08:59 | XMS_ITS | Encounter Summary ---
Author Organization [employer] ([place], [place], [place], [place]) Address [address] [place] [address] Care Team Providers Care Closet Organizer Name Role Phone Unavailable Primary Care Provider Unavailabl e Encounter Details Date Type Department Care Team (Late st Contact Info) Description 11/28/2018 Transcribed Document [facility] [place] Family Medicine [address] [place] [address] ProviderErika MD [address] [place], [place] [id number] Social History Tobacco Use Types Packs/Day Years Used Date Smoking Tobacco: Never Assessed Sex and Gender Information Value Date Recorded Sex Assigned at Not on file Legal Sex Male 5:03 PM CDT Gender Identity Not on file Sexual Orientation Not on file documented as of this encounter Miscellaneous Notes * Cerner Conversion Note - Historical ProviderMD - 11/28/2018 2:00 AM CDT Web Applications Administrator Details Entered On: 11/28/2018 2:45 EDT Performed [...] Robyn Benitez, RN - 11/28/2018 2:44 EDT Electronically signed by Christina Saini Conversion Family And Consumer Education Teacher Cerner at 12/08/2022 12:20 PM CDT documented in this encounter Plan of Treatment Not on file documented as of this encounter Visit Diagnoses Not on filedocumented in this encounter
--- OUTSIDE RECORDS SUMMARY | 2025-05-29 08:59 | XMS_ITS | Encounter Summary ---
Author Organization [employer] ([place], [place], [place], [place]) Address [address] [place] [address] Care Team Providers Care Pump And Blower Operator Name Role Phone Unavailable Primary Care Provider Unavailabl e Encounter Details Date Type Department Care Team (Late st Contact Info) Description 11/16/2018 Transcribed Document [facility] [place] [address] [place] [address] ProviderErika MD [address] [place] [address] Social History Tobacco Use Types [...] On: 11/16/2018 12:27 EDT by Lorin Pratt, [facility] Phone Call for Consults Consult Phone Call/Page Attempt : Other: Valve: no call Lorin Pratt [facility] - 11/16/2018 13:34 EDT documented in this encounter Plan of Treatment Not on file documented as of this encounter Visit Diagnoses Not on filedocumented in this encounter
--- OUTSIDE RECORDS SUMMARY | 2025-05-29 08:59 | XMS_ITS | Encounter Summary ---
Author Organization [employer] ([place], [place], [place], [place]) Address [address] [place] [address] Care Team Providers Care Sheet Rock Layer Name Role Phone Unavailable Primary Care Provider Unavailabl e Encounter Details Date Type Department Care Team (Late st Contact Info) Description 11/16/2018 Transcribed Document [facility] [place] Family Medicine [address] [place] [address] ProviderErika MD [address] [place] [address] Social History Tobacco Use Types [...] On: 11/16/2018 12:27 EDT by Lorin Pratt [facility] Phone Call for Consults Consult Phone Call/Page Attempt : First call Lorin Pratt [facility] - 11/16/2018 13:34 EDT documented in this encounter Plan of Treatment Not on file documented as of this encounter Visit Diagnoses Not on filedocumented in this encounter
--- OUTSIDE RECORDS SUMMARY | 2025-05-29 08:59 | XMS_ITS | Encounter Summary ---
Author Organization [facility] ([place], [place], [place], [place]) Address [address] [place] [address] Care Team Providers Care Software Tools Engineer Name Role Phone Unavailable Primary Care Provider Unavailabl e Encounter Details Date Type Department Care Team (Late st Contact Info) Description 11/16/2018 Transcribed Document [facility] [place] Family Medicine [address] [place] [address] ProviderErika MD [address] [place] [address] Social History Tobacco Use Types [...] form. Electronically signed by Christina Saini Conversion Construction Field Engineer Cerner at 12/12/2022 8:26 AM CDT documented in this encounter Plan of Treatment Not on file documented as of this encounter Visit Diagnoses Not on filedocumented in this encounter
--- OUTSIDE RECORDS SUMMARY | 2025-05-29 08:59 | XMS_ITS | Encounter Summary ---
Author Organization [employer] ([place], [place], [place], [place]) Address [address] [place] [address] Care Team Providers Care Perinatal Tech Name Role Phone Unavailable Primary Care Provider Unavailabl e Encounter Details Date Type Department Care Team (Late st Contact Info) Description 11/28/2018 Transcribed Document [facility] [place] Family Medicine [address] [place] [address] ProviderErika MD [address] [place], [place] [phone] Social History Tobacco Use Types Packs/Day Years [...] 1940 Associated Diagnoses: CAD (coronary artery disease), [place] coronary artery; Thrombocytopenia; Coronary artery disease; HTN [...] mg, Oral, At Bedtime saliva substitutes: 1 [place], Buccal, Q2H, PRN: Other (See Comment) warfarin: [...] Q1H saliva substitute liq 59 mL 1 [place], Buccal, Q2H Problem list: Medical Aneurysm, thoracic aortic / SNOMED CT 3258542475 / Confirmed Aortic valve insufficiency / SNOMED CT 930048932 / Confirmed Arthritis / SNOMED CT 3417457 / Confirmed At risk for sleep apnea / IMO [id number] / Confirmed CAD (coronary artery disease) / SNOMED CT 85487470 / Confirmed HTN - Hypertension / SNOMED CT 9367000816 / Confirmed Hypothyroidism / SNOMED CT 53981006 / Confirmed Frequent urination / SNOMED CT 686989737 / Confirmed Nocturia / SNOMED CT 035891637 / Confirmed Prostate stricture / SNOMED CT 69003105 / Confirmed, Active Problems (13) Aneurysm, thoracic [...] swelling - improved today. Integumentary: Warm, Dry, [place], incision is C/D/I. Neurologic: Alert, Oriented, left [...] (Current Encounter/Past 24 Hours) PT 20.8 Second(s) [place] 11/28/2018 09:08 PTT 27.6 Second(s) 11/28/2018 08:53 INR 2.0 [place] 11/28/2018 09:08 . Impression and Plan Plan: [...] of discharge- CM has sent information to [facility] -Transfer to [facility] 11/24/18 -POD#8 -Awaiting transfer to [facility] -Awaiting response from [facility] 11/25/18 -left upper extremity venous doppler - doppler this am positive for LUE DVT - will start coumadin and heparin bridge -awaiting [facility] 11/26/18 -Heparin drip and coumadin for LUE DVT Left arm swelling improved today INR 1.1 today, INR goal 2-3 Possibly transfer to [facility] this weekend 11/27/18: Left arm swelling continues to improve Continues on Coumadin and heparin bridge INR: 1.4 (1.1 yesterday) goal: 2 to 3 [facility] soon,? Tomorrow 11/28/18 BP in 70s-80s this [...] Prophylaxis: SCDs Diagnosis CAD (coronary artery disease), [place] coronary artery - Admitting, Medical. Thrombocytopenia - [...]
--- OUTSIDE RECORDS SUMMARY | 2025-05-29 08:59 | XMS_ITS | Encounter Summary ---
Author Organization [employer] ([place], [place], [place], [place]) Address [address] [place] [address] Care Team Providers Care Auto Rental Clerk Name Role Phone Unavailable Primary Care Provider Unavailabl e Encounter Details Date Type Department Care Team (Late st Contact Info) Description 11/16/2018 Transcribed Document [facility] [place] [address] [place] [address] ProviderErika MD [address] [place] [address] Social History Tobacco Use Types [...] Ambulatory Legal Guardian : Spouse Support Person/Patient Earth Science Professor : Yes Support Person/Pt Rep Name : Connie- Sumeet - son Support Person/Pt Rep Contact Information : [phone] home [phone] - cell Want Family/Rep/Phys Notified of Admit [...] : Patient, Medical Record Primary Language : Khmer Preferred Communication Mode : Verbal Communication Barrier [...] Scale Risk Level : 25-45 Medium Risk [place] Fall Interventions : Adequate lighting, Assistive devices [...] Source : Measured Height Entry Format : Jenkins Height, Feet : 6 ft(Converted to: 183 cm, 72 Inch) Height, Inches : 1 Inch(Converted to: 0 ft 1 Inch, 2.54 cm) Clinical Height : 185.42 cm Weight Source : Standing scale Weight Entry Format : Jenkins Clinical Dosing Weight : 79.23 kg Weight, Pounds : 174 lb Weight, Ounces : 5 oz Body Surface Area (BSA) : 2.03 m2 Body Mass Index : 23 kg/m2 Carter Body Weight : 79 kg FROY NEIL [...]
--- OUTSIDE RECORDS SUMMARY | 2025-05-29 08:59 | XMS_ITS | Encounter Summary ---
Author Organization [employer] ([place], [place], [place], [place]) Address [address] [place] [address] Care Team Providers Care Green Lumber Grader Name Role Phone Unavailable Primary Care Provider Unavailabl e Encounter Details Date Type Department Care Team (Late st Contact Info) Description 11/20/2018 Transcribed Document [facility] [place] [address] [place] [address] ProviderErika MD [address] [place] [address] Social History Tobacco Use Types Packs/Day Years Used Date Smoking Tobacco: Never Assessed Sex and Gender Information Value Date Recorded Sex Assigned at Not on file Legal Sex Male 5:03 PM CDT Gender Identity Not on file Sexual Orientation Not on file documented as of this encounter Miscellaneous Notes * Cerner Conversion Note - Erika ProviderMD - 11/20/2018 9:36 AM CDT GENETICS NURSE Note Entered On: 11/24/2018 13:28 EDT Performed On: 11/24/2018 13:19 EDT by MAMTA SOLO, GENETICS NURSE Dysphagia Exercise Technique Dysphagia Therapy/Treatment Type #1 [...] Technique PO Trial #1 Consistency Trialed : [place] Oral Symptoms : None observed Pharyngeal Signs [...] 13:19 EDT Swallow Plan/Goals Swallow LTG Grid GENETICS NURSE Checkout Operator Goal #1 GENETICS NURSE Fci Goal #2 Swallow LTG : Establish [...] Met : 11/22/2018 EDT MAMTA SOLO, [facility] - 11/24/2018 13:19 EDT MAMTA SOLO GENETICS NURSE - 11/24/2018 13:19 EDT MAMTA SOLO GENETICS NURSE - 11/24/2018 13:19 EDT MAMTA SOLO [facility] - 11/24/2018 13:19 EDT LTG Lang/Comm/Cog LTG GENETICS NURSE Checkout Operator Goal 1 Checkout Operator Goal 2 Goals : Improved spoken language expression at the time of discharge Improved auditory/spoken language comprehension at the time of discharge Status : Initial Initial MAMTA SOLO [facility] - 11/24/2018 13:19 EDT MAMTA SOLO SLP - 11/24/2018 13:19 EDT STG Lang_Comm_Cog Motor Speech STG Grid Goal #1 Activity : Improve intelligibility of speech Status : Initial MAMTA SOLO [facility] - 11/24/2018 13:19 EDT Auditory Comprehension Grid Goal #1 Goal #2 Activity : Follow directions, 3 step commands simple Comprehend paragraph complex MAMTA SOLO [facility] - 11/24/2018 13:19 EDT MAMTA SOLO [facility] - 11/24/2018 13:19 EDT Verbal Expression STG Grid Goal #1 Activity : Generate items in a category MAMTA SOLO [facility] - 11/24/2018 13:19 EDT Reading Comprehension STG Grid Goal #1 Activity : Visual perception deficits MAMTA SOLO [facility] - 11/24/2018 13:19 EDT Attention STG Grid Goal #1 Activity : Other: Probe Status : Goal met Date Met : 11/24/2018 TGT MAMTA SOLO [facility] - 11/24/2018 13:19 EDT Memory STG Grid Goal #1 Goal #2 Goal #3 Activity : Other: Probe Improve short term functional delayed Improve short term working memory Status : Goal met Initial Initial Date Met : 11/24/2018 TGT MAMTA SOLO [facility] - 11/24/2018 13:19 EDT MAMTA SOLO [facility] - 11/24/2018 13:19 EDT MAMTA SOLO [facility] - 11/24/2018 13:19 EDT Problem [...] SOLO SLP - 11/24/2018 13:19 EDT Subjective/Assessment/Plan GENETICS NURSE Patient Concern : Pt was awake and lying in bed. Agreeable to tx. GENETICS NURSE Therapy/Treatment Asmt Cmnt : Pt seen for speech and dysphagia tx. Great participation in tx. Requires continuous cues for accurate completion of timing exercises. No overt pharyngeal patterns with nectar liquids. Further cogntive probe completed. Pt presents with a moderate cognitive deficits characterized by impairments in memory, orientation, and problem solving. POC updated. GENETICS NURSE Plan : Continue per POC. Repeat swallow study Thursday. MAMTA SOLO SLP - 11/24/2018 13:19 EDT Education Barriers To Learning : Cognitive deficit Individuals Taught : Patient Readiness to Learn : Cooperative Readiness to Learn : Explanation MAMTA SOLO SLP - 11/24/2018 13:19 EDT GENETICS NURSE Education Assessment Grid 1 Evaluation Results : Verbalizes understanding MAMTA SOLO SLP - 11/24/2018 13:19 EDT GENETICS NURSE Education Assessment Grid 2 Treatment Plan : Verbalizes understanding MAMTA SOLO SLP - 11/24/2018 13:[address] [facility] [place] GENETICS NURSE Charges Speech Therapy : 1 Treatment-Swallowing : 1 MAMTA SOLO SLP - 11/24/2018 13:19 EDT Anticipated Discharge Needs, GENETICS NURSE Anticipated Discharge to OT : Rehab, high intensity Recommend Continued Therapy at Discharge : Yes MAMTA SOLO SLP - 11/24/2018 13:19 EDT documented in this encounter Plan of Treatment Not on file documented as of this encounter Visit Diagnoses Not on filedocumented in this encounter
--- OUTSIDE RECORDS SUMMARY | 2025-05-29 08:59 | XMS_ITS | Encounter Summary ---
Author Organization [employer] ([place], [place], [place], [place]) Address [address] [place] [address] Care Team Providers Care Agency Cashier Name Role Phone Unavailable Primary Care Provider Unavailabl e Encounter Details Date Type Department Care Team (Late st Contact Info) Description 12/01/2018 Transcribed Document [facility] [place] [address] [place] [address] ProviderErika MD [address] [place] [address] Social History Tobacco Use Types [...] chart reviewed, received word from [facility] that bed is available for patient today, on their stroke unit. Patient to be transported via [facility], p/u set for 3pm. RN report to be called to [phone] and discharge summary to be faxed to [phone]. Pt, RN and family aware and in agreement with plan. ANGELA NAIR Social Worker - 12/01/2018 11:35 EDT Care Management Note Report : SUZANNA HAINES Social Worker - 11/30/18 15:30:18 Covering today for D/c planning, pt back on 3E room 330. Discussed w/ Carmen from [facility] who is still following pt. She has submitted pt info to MD for approval. Pt had EGD 11/29 which revealed duodenal ulcer w/ clot but no bleeding, no intervention needed, Off heparin gtt, watching pt's INR and H & H. Speech signed off today, pt is cleared for thins. Met w/ pt and family and informed them of [facility] situation. Also discussed outpt Cardiac Rehab. They prefer to go to [facility]. Phoned them and left msg, sent pt info to them. CM will cont to follow. ANGELA NAIR Crimping Machine Operator - 11/26/18 11:20:05 Continue to follow for discharge needs and arrangements, chart reviewed, admission day 10, transfer from CTVU, on room air, WBC=11.2, INR=1.1, PTT=55.8, on IV Heparin gtt due to DVT in left arm, MBS completed today now on regular cardiac diet with thin liquids, PT/OT following (not seen on 11/25/18) followed up with [facility] today regarding possible admission - plan is to submit for approval today after being seen by therapy. Awaiting ANGELA NAIR Crimping Machine Operator - 11/26/18 11:24:04 Continue to follow for discharge needs and arrangements, chart reviewed, admission day 10, transfer from CTVU, on room air, WBC=11.2, INR=1.1, PTT=55.8, on IV Heparin gtt due to DVT in left arm, MBS completed today now on regular cardiac diet with thin liquids, PT/OT following (not seen on 11/25/18) followed up with [facility] today regarding possible admission - plan is to submit for approval today after being seen by therapy, for their MD approval. Once accepting MD in place, bed in place and patient is medically stable will be able to transfer due to patient not requiring a insurance prior auth. CM will continue to follow. ODALYS FAULKNER, Rn-Pest Control Supervisor - 11/24/18 13:22:19 11/24/18 Andra from [facility] called to let me know they started a precert on this pt. CF ODALYS FAULKNER Rn-Pest Control Supervisor - 11/22/18 13:56:32 11/22/18 Pt has had a cva. Spoke to his Connie and son Sumeet at the bedside. Pt is lfacid on the left side. Discussed the need for STR and they decided on [facility]. Sent pt info via [employer] to [facility]. CF Documentation Status Complete : Yes ANGELA NAIR Social Worker - 12/01/2018 11:24 EDT Discharge Planning Details Home Caregiver Name/Relationship : Connie King [phone] spouse Discharge Placement Needs : Rehabilitation unit/facility [...] Yes Patient/Family Notified : Connie King Spouse [phone] ANGELA NAIR Social Worker - 12/01/2018 11:35 EDT Final Discharge Disposition Note-CM Discharge To Care Management : IRF -Inpatient Rehabilitation Facility-62 Name of Receiving Facility/Provider-CM : [facility] Stroke unit ANGELA NAIR Social Worker - 12/01/2018 11:35 EDT documented in this encounter Plan of Treatment Not on file documented as of this encounter Visit Diagnoses Not on filedocumented in this encounter
--- OUTSIDE RECORDS SUMMARY | 2025-05-29 08:59 | XMS_ITS | Encounter Summary ---
Author Organization [facility] [facility] ([place], [place], [place], [place]) Address [address] [place] [address] Care Team Providers Care Advice Nurse Name Role Phone Unavailable Primary Care Provider Unavailabl e Encounter Details Date Type Department Care Team (Late st Contact Info) Description 11/28/2018 Transcribed Document [facility] [place] [address] [place] [address] ProviderErika MD [address] [place] [address] Social History Tobacco Use Types Packs/Day Years Used Date Smoking Tobacco: Never Assessed Sex and Gender Information Value Date Recorded Sex Assigned at Not on file Legal Sex Male 5:03 PM CDT Gender Identity Not on file Sexual Orientation Not on file documented as of this encounter Miscellaneous Notes * Cerner Conversion Note - Erika ProviderMD - 11/28/2018 10:[address] [facility] Main OR IntraOp Summary Primary Physician: SAMAN BERNSTEIN MD-GAE Finalized Date/Time: 11/30/18 09:14:16 Pt. Name: DOTTIE VILLASENOR D.O.B./Sex: 1940 Male Med Rec #: [id number] Physician: JULIO CESAR CARVALHO MD-[facility] Financial #: [id number] Pt. Type: I Room/Bed: [facility]/1 Admit/Disch: 11/16/18 06:45:00 - Institution: [facility] IntraOp Case Attendance Entry 1 Entry 2 Entry 3 Case Attendee SAMAN BERNSTEIN MD-SALMA GARCIA MD WURTELE, JOHN L. Role Performed Surgeon/Proceduralist, Anesthesiologist Hydrogen Operator, Ancillary First Time In 11/28/18 10:10:00 11/28/18 10:10:00 11/28/18 10:10:00 Time Out 11/28/18 10:35:00 11/28/18 10:35:00 11/28/18 10:35:00 Procedure Esophagogastroduodenosco Esophagogastroduodenosco Esophagogastroduodenosco py py py Other Attendee Superficial Wound Closed By: Last Modified By: Sukumar Casanova, Sukumar Gibbs, Sukumar Gibbs RN 11/28/18 11:00:07 11/28/18 11:00:07 11/28/18 11:00:07 Entry 4 Entry 5 Case Attendee Dianne Garcia, Sukumar Gibbs, TONJA Role Performed Data Integration Developer, First Data Integration Developer, Second Time In 11/28/18 10:10:00 11/28/18 10:10:00 Time Out 11/28/18 10:35:00 11/28/18 10:35:00 Procedure Esophagogastroduodenosco Esophagogastroduodenosco py py Other Attendee Superficial Wound Closed By: Last Modified By: Sukumar Casanova, Sukumar Gibbs RN 11/28/18 11:00:07 11/28/18 11:00:07 [facility] IntraOp Case Attendance Audit 11/28/18 11:00:07 Tube Skiver: ANDRADES Modifier: PANTANOS 1 <+> Time Out 1 <*> Procedure Esophagogastroduodenoscopy 2 <+> Time Out 2 <*> Procedure Esophagogastroduodenoscopy 3 <+> Time Out 3 <*> Procedure Esophagogastroduodenoscopy 4 <+> Time Out 4 <*> Procedure Esophagogastroduodenoscopy 5 <+> Time Out 5 <*> Procedure Esophagogastroduodenoscopy 11/28/18 10:20:36 Tube Skiver: FABIANAANOS Modifier: PANTANOS <+> 1 Procedure 2 <+> Time In 2 <*> Procedure Esophagogastroduodenoscopy 3 <+> Time In 3 <*> Procedure Esophagogastroduodenoscopy 4 <+> Time In 4 <*> Procedure Esophagogastroduodenoscopy 5 <+> Time In 5 <*> Procedure Esophagogastroduodenoscopy [facility] IntraOp Case Times Entry 1 Patient In Room Time 11/28/18 10:10:00 Out Room Time 11/28/18 10:35:00 Anesthesia Start Time 11/28/18 10:10:00 Stop Time 11/28/18 10:35:00 Surgery / Procedure Times Start Time 11/28/18 10:19:00 Stop Time 11/28/18 10:33:00 Last Modified By: Sukumar Casanova RN 11/28/18 10:59:40 [facility] IntraOp Case Times Audit 11/28/18 10:59:40 Tube Skiver: PANTANOS Modifier: PANTANOS <+> 1 Out Room Time <+> 1 Stop Time <+> 1 Stop Time 11/28/18 10:22:00 Tube Skiver: PANTANOS Modifier: PANTANOS <+> [address] [facility] IntraOp Departure from OR Entry 1 Integumentary Assessment Transfer/Handoff Transfer to PACU Phase I Handoff Method Bedside/Face to face, Online nursing summary Post-op Transport Stretcher/Gurney Via Patient Transport Sukumar Casanova RN, Accompanied by SALMA MARROQUIN MD Last Modified By: Sukumar Casanova RN 11/28/18 10:25:50 [facility] IntraOp Departure from OR Audit 11/28/18 10:25:50 Tube Skiver: FABIANAANOS Modifier: PANTANOS 1 <*> Patient Transport Accompanied by Sukumar Casanova RN [facility] IntraOp Fire Risk Assessment Entry 1 [...] Modified By: Sukumar Casanova RN 11/28/18 10:15:58 [facility] IntraOp General Case Raise Miner 1 Case Information OR OR [facility] Case Level 1 Room Verified Yes Wound Class II - Clean-Contaminated Specialty SN Gastroenterology Anesthesia Type General ASA Class 4E Diagnosis Preop Diagnosis GASTRIC BLEED Postop Same As Preop Yes Postop Diagnosis GASTRIC BLEED Last Modified By: Sukumar Casanova RN 11/28/18 10:18:38 [facility] IntraOp General Case Data Audit 11/28/18 10:18:38 Tube Skiver: WILL Modifier: PANTANOS <+> 1 Postop Same As Preop <+> 1 Preop Diagnosis <+> [address] [facility] IntraOp Intraoperative Assessment Entry 1 Handoff [...] Modified By: Sukumar Casanova RN 11/28/18 10:21:06 [facility] IntraOp Intraoperative Equipment Entry 1 Type Monitoring Equipment Intraop Monitoring Electrocardiogram Three lead placement (ECG) Electrode Placement Blood Pressure Non-Invasive BP Device Source Blood Pressure Arm, right upper Location Pulse Oximeter Hand, left Probe Site Antiembolic Devices Scopes Photo/Video Documentation Last Modified By: Sukumar Casanova RN 11/28/18 10:21:34 [facility] IntraOp Patient Positioning Entry 1 Procedure [...] Modified By: Sukumar Casanova RN 11/28/18 10:20:33 [facility] IntraOp Sign In Entry 1 Patient, [...] Modified By: Sukumar Casanova RN 11/28/18 10:22:31 [facility] IntraOp Sign Out Entry 1 RN [...] Modified By: Sukumar Casanova RN 11/28/18 11:00:01 [facility] IntraOp Sign Out Audit 11/28/18 11:00:01 Tube Skiver: WILL Modifier: WILL <+> 1 RN Sign Out Signature Date/Time [facility] IntraOp Surgical Procedures Entry 1 Procedure Esophagogastroduodenosco py Additional (EGD WITH CONTROL OF Procedure BLEEDING) Description Primary Procedure Yes Primary Surgeon SAMAN BERNSTEIN MD-TAO Start 11/28/18 10:19:00 Stop 11/28/18 10:33:00 Anesthesia Type General Specialty SN Gastroenterology Wound Class II - Clean-Contaminated Last Modified By: Sukumar Casanova RN 11/28/18 10:59:52 [facility] IntraOp Surgical Procedures Audit 11/28/18 10:59:52 Tube Skiver: WILL Modifier: WILL 1 <*> Procedure Esophagogastroduodenoscopy 1 <+> Specialty 11/28/18 10:59:43 Tube Skiver: WILL Modifier: WILL <+> 1 Start <+> [address] [facility] IntraOp Temp Regulation Devices Entry 1 Temp Regulation Temperature Warm blankets Regulation Device Temperature Full body Regulation Site Last Modified By: Sukumar Casanova RN 11/28/18 10:26:13 [facility] IntraOP Time Out Entry 1 Procedure [...] Modified By: Sukumar Casanova RN 11/28/18 10:21:53 [facility] IntraOP Time Out Audit 11/28/18 10:21:53 Tube Skiver: WILL Modifier: WILL 1 <+> Time Out Pause Time 1 <*> Procedure to be Performed Esophagogastroduodenoscopy Case Comments <None> Finalized By: JODI PITT Document Signatures Signed By: Sukumar Casanova RN 11/28/18 11:00 JODI PITT 11/30/18 09:14 Unfinalized History Date/Time Username Reason for Unfinalizing Freetext Reason for Unfinalizing 11/30/18 09:13 [email or web address] Correct Billing Electronically signed by Parveen [facility] Conversion Abalone Sheller Cerner at 12/08/2022 12:19 PM CDT documented in this encounter Plan of Treatment Not on file documented as of this encounter Visit Diagnoses Not on filedocumented in this encounter
--- OUTSIDE RECORDS SUMMARY | 2025-05-29 08:59 | XMS_ITS | Encounter Summary ---
Author Organization [employer] ([place], [place], [place], [place]) Address [address] [place] [address] Care Team Providers Care Manager Telecom Name Role Phone Unavailable Primary Care Provider Unavailabl e Encounter Details Date Type Department Care Team (Late st Contact Info) Description 11/16/2018 Transcribed Document [facility] [place] Family Medicine [address] [place] [address] ProviderErika MD [address] [place] [address] Social History Tobacco Use Types Packs/Day Years Used Date Smoking Tobacco: Never Assessed Sex and Gender Information Value Date Recorded Sex Assigned at Not on file Legal Sex Male 5:03 PM CDT Gender Identity Not on file Sexual Orientation Not on file documented as of this encounter Miscellaneous Notes * Cerner Conversion Note - Erika ProviderMD - 11/16/2018 8:20 AM CDT [facility] Main OR IntraOp Summary Primary Physician: JULIO CESAR CARVALHO MD-CAT Finalized Date/Time: 11/17/18 10:03:54 Pt. Name: DOTTIE VILLASENOR D.O.B./Sex: 1940 Male Med Rec #: [id number] Physician: JULIO CESAR CARVALHO MD-CAT Financial #: [id number] Pt. Type: I Room/Bed: [facility] Admit/Disch: 11/16/18 06:45:00 - Institution: [facility] IntraOp Case Attendance Entry 1 Entry 2 Entry 3 Case Attendee JULIO CESAR CARVALHO MD-CAT ALTIZER, LISA E, RN Alton Gamble, office clin asst Role Performed Surgeon/Proceduralist, Segmental Wall Installer, First Certified Registered Nurse Practitioner First Time In 11/16/18 07:06:00 11/16/18 07:06:00 [...] CAROLYN, RN Role Performed Scrub, First Anesthesiologist Segmental Wall Installer, Second Time In 11/16/18 07:06:00 11/16/18 07:06:00 [...] [place] Pref Card Builder Role Performed Physician orthodontist assistant Physician orthodontist assistant Segmental Wall Installer, Second Time In 11/16/18 07:06:00 11/16/18 09:00:00 [...] Attendee Colette Alexander, LISETH Dimas, Alton Gamble, office clin asst Pref Card Builder Certified Registered Nurse Practitioner Role Performed Scrub, First Certified Registered Nurse Practitioner Certified Registered Nurse Practitioner Time In 11/16/18 10:32:00 11/16/18 11:05:00 11/16/18 [...] 12:25:17 Entry 13 Case Attendee LISETH ROE, Certified Registered Nurse Practitioner Role Performed Certified Registered Nurse Practitioner Time In 11/16/18 12:13:00 Time Out 11/16/18 12:30:00 Procedure Aortic Aneurysm Ascending Repair, CABG w Aortic Valve, Transesophageal Echocardiogram Other Attendee Superficial Wound Closed By: Last Modified By: RADHA VALENCIA, TONJA 11/16/18 12:40:56 [facility] IntraOp Case Attendance Audit 11/16/18 12:40:56 Spanner Operator: ALTIZEL Modifier: ALTIZEL 1 <+> Time Out [...] w Aortic Valve, Transesophageal Echocardiogram 11/16/18 12:25:17 Spanner Operator: ALTIZEL Modifier: ALTIZEL 12 <+> Time Out 12 <*> Procedure Aortic Aneurysm Ascending Repair, CABG w Aortic Valve <+> 13 Case Attendee <+> 13 Role Performed <+> 13 Time In <+> 13 Procedure 11/16/18 11:17:39 Spanner Operator: ALTIZEL Modifier: ALTIZEL <+> 12 Case Attendee <+> 12 Role Performed <+> 12 Time In <+> 12 Procedure 11/16/18 11:17:17 Spanner Operator: ALTIZEL Modifier: ALTIZEL 3 <+> Time Out 3 <*> Procedure Transesophageal Echocardiogram <+> 11 Case Attendee <+> 11 Role Performed <+> 11 Time In <+> 11 Time Out <+> 11 Procedure <+> 11 Other Attendee 11/16/18 10:47:10 Spanner Operator: ALTIZEL Modifier: ALTIZEL <+> 10 Case Attendee <+> 10 Role Performed <+> 10 Time In <+> 10 Time Out <+> 10 Procedure <+> 10 Other Attendee 11/16/18 09:58:31 Spanner Operator: ALTIZEL Modifier: ALTIZEL <+> 1 Procedure <+> 2 Procedure <+> 3 Procedure <+> 4 Procedure <+> 5 Procedure <+> 6 Procedure 7 <*> Procedure Aortic Aneurysm Ascending Repair, CABG w Aortic Valve 8 <*> Procedure Aortic Aneurysm Ascending Repair, CABG w Aortic Valve 9 <*> Procedure Aortic Aneurysm Ascending Repair, CABG w Aortic Valve 11/16/18 09:50:06 Spanner Operator: ALTIZEL Modifier: ALTIZEL 9 <+> Time Out 9 <*> Procedure Aortic Aneurysm Ascending Repair, CABG w Aortic Valve 11/16/18 09:39:14 Spanner Operator: ALTIZEL Modifier: ALTIZEL <+> 9 Case Attendee <+> 9 Role Performed <+> 9 Time In <+> 9 Procedure <+> 9 Other Attendee 11/16/18 09:28:12 Spanner Operator: ALTIZEL Modifier: ALTIZEL <+> 8 Case Attendee <+> 8 Role Performed <+> 8 Time In <+> 8 Procedure 11/16/18 08:24:20 Spanner Operator: ALTIZEL Modifier: ALTIZEL 7 <+> Time Out 7 <*> Procedure Aortic Aneurysm Ascending Repair, CABG w Aortic Valve 11/16/18 08:21:45 Spanner Operator: ALTIZEL Modifier: ALTIZEL <+> 6 Time Out 11/16/18 08:10:59 Spanner Operator: ALTIZEL Modifier: ALTIZEL 6 <*> Time In 11/16/18 07:00:00 <+> 7 Case Attendee <+> 7 Role Performed <+> 7 Time In <+> 7 Procedure 11/16/18 07:19:51 Spanner Operator: ALTIZEL Modifier: ALTIZEL <+> 2 Time In <+> 3 Time In <+> 4 Time In <+> 5 Time In 11/16/18 07:19:37 Spanner Operator: ALTIZEL Modifier: ALTIZEL <+> 1 Time In <+> 2 Case Attendee <+> 2 Role Performed <+> 3 Case Attendee <+> 3 Role Performed <+> 4 Case Attendee <+> 4 Role Performed <+> 5 Case Attendee <+> 5 Role Performed <+> 6 Case Attendee <+> 6 Role Performed <+> 6 Time In [facility] Intra[facility] Case Times Entry 1 Patient In Room Time 11/16/18 07:06:00 Out Room Time 11/16/18 12:30:00 Anesthesia Start Time 11/16/18 07:06:00 Stop Time 11/16/18 12:30:00 Anesthesia Ready 11/16/18 07:06:00 Surgery / Procedure Times Start Time 11/16/18 08:20:00 Stop Time 11/16/18 12:22:00 Last Modified By: RADHA VALENCIA RN 11/16/18 07:17:32 [facility] IntraOp Case Times Audit 11/16/18 12:30:30 Spanner Operator: ALTIZEL Modifier: ALTIZEL <+> 1 Out Room Time <+> 1 Stop Time <+> 1 Stop Time 11/16/18 08:21:57 Spanner Operator: ALTIZEL Modifier: ALTIZEL <+> 1 Start Time [facility] IntraOp Cautery Entry 1 ESU Identification Cautery Type Monopolar ESU ID Number [id number] ID Type Hospital Number Cautery Settings Cut [...] Modified By: RADHA VALENCIA RN 11/16/18 08:42:12 [facility] IntraOp Communication Entry 1 Entry 2 Entry [...] RN 11/16/18 11:53:58 11/16/18 12:13:00 11/16/18 12:13:00 [facility] IntraOp Communication Audit 11/16/18 12:13:00 Spanner Operator: ALTIZEL Modifier: ALTIZEL <+> 8 Communication By <+> 8 Date and Time <+> 8 Communication To <+> 9 Communication By <+> 9 Date and Time <+> 9 Communication To <+> 9 Comment 11/16/18 11:53:58 Spanner Operator: ALTIZEL Modifier: ALTIZEL <+> 7 Communication By <+> 7 Date and Time <+> 7 Communication To <+> 7 Comment 11/16/18 11:31:42 Spanner Operator: ALTIZEL Modifier: ALTIZEL <+> 6 Communication By <+> 6 Date and Time <+> 6 Communication To 11/16/18 10:22:56 Spanner Operator: ALTIZEL Modifier: ALTIZEL <+> 5 Communication By <+> 5 Date and Time <+> 5 Communication To 11/16/18 09:10:41 Spanner Operator: ALTIZEL Modifier: ALTIZEL <+> 3 Communication By <+> 3 Date and Time <+> 3 Communication To <+> 4 Communication By <+> 4 Date and Time <+> 4 Communication To <+> 4 Comment [facility] Intra[facility] Counts Verification Entry 1 Entry 2 [...] LISA E, RN 11/16/18 07:20:29 11/16/18 11:54:29 [facility] Intra[facility] Counts Verification Audit 11/16/18 11:54:29 Spanner Operator: ALTIZEL Modifier: ALTIZEL <+> 2 Procedure <+> 2 Count Type <+> 2 Counts Verification Sequence <+> 2 Count Results <+> 2 Count Performed By (Scrub) <+> 2 Count Performed By (RN) 11/16/18 09:58:33 Spanner Operator: ALTIZEL Modifier: ALTIZEL 1 <*> Procedure Aortic Aneurysm Ascending Repair, CABG w Aortic Valve [facility] IntraOp Counts Final Entry 1 Procedure Aortic Aneurysm Ascending Repair, CABG w Aortic Valve, Transesophageal Echocardiogram Final Count Info Count Type Sponge, Sharps, Instrument, Miscellaneous Counts Verification Skin Closure/end of Sequence procedure Count Results Correct, surgeon notified Counts Performed By Count Performed By MELODY MASON (Scrub) Count Performed By RADHA VALENCIA RN (RN) Last Modified By: RADHA VALENCIA RN 11/16/18 12:01:46 [facility] IntraOp Cultures and Spec Summary Entry 1 Cultrures and Specimens Specimen Ordered: Yes Specimens Types Pathology Specimen(s) Labeled Pathology and Sent to Last Modified By: RADHA VALENCIA RN 11/16/18 09:22:38 [facility] IntraOp Departure from OR Entry 1 Integumentary Assessment Integumentary WDL Assessment WDL Transfer/Handoff Transfer to ICU - Cardiovascular Post-op Transport Bed (including Via specialty) Patient Transport SHERRY NICHOLS, Accompanied by Tye KHAN Tom, office clin asst Last Modified By: RADHA VALENCIA RN 11/16/18 08:42:33 [facility] IntraOp Drains and Tubes Entry 1 Entry [...] LISA E, RN 11/16/18 08:42:54 11/16/18 08:42:54 [facility] IntraOp Dressing and Packing Entry 1 Entry 2 Type Dressing Dressing Location Mediastinum Mediastinum Wound Dressing Item 4x4's, Skin Closure Glue 4x4's Wound Packing Type Tape Type Supplemental Applications Applied By Other Comments Soft cloth paper tape Soft cloth paper tape Last Modified By: RADHA VALENCIA RN ALTIZER, LISA E, RN 11/16/18 08:43:06 11/16/18 08:53:50 [facility] Intra[facility] Dressing and Packing Audit 11/16/18 08:53:50 Spanner Operator: SAIGEIZEL Modifier: ALTIZEL <+> 2 Type <+> 2 Location <+> 2 Wound Dressing Item <+> 2 Other Comments [facility] IntraOp Fire Risk Assessment Entry 1 Fire [...] Modified By: RADHA VALENCIA RN 11/16/18 07:20:01 [facility] IntraOp Fire Risk Assessment Audit 11/16/18 08:43:21 Spanner Operator: SAIGEIZEL Modifier: ALTIZEL 1 <*> Fire Risk Assessment Verified 11/16/18 07:19:00 Date/Time [facility] IntraOp General Case Bench Lay Out Technician 1 Case Information OR OR 14 [facility] Case Level 2 Room Verified Yes Wound Class I - Clean Specialty SN Cardio Thoracic Anesthesia Type General ASA Class 4 Diagnosis Preop Diagnosis CAD, AORTIC VALVE DISEASE, ASCENDING AORTIC ANEURSYM Postop Diagnosis SEE MD POST OP NOTE Last Modified By: RADHA VALENCIA RN 11/16/18 08:50:46 [facility] IntraOp Implant Log Entry 1 Entry 2 Type Implant (Synthetic) Tissue Implant (Biologic) Implant Log Implant Type Grafts, non-biological Tissue Implant Type Heart valve Implant [facility] [place] PLAT VALVE AORT ROOT Identification [id number] [facility] [id number] Description Implant Quantity 1 1 Implant Site AORTA AORTA Implant Identification Model Number Implant [id number] Identification Serial Number Implant Identification Lot Number Implant Michel Ind:Maquet:Cv Medtronic:Card Surg:Tech Identification Rn Maternity Name: Implant [id number] Identification Catalog Number Implant Size Implant Has an Yes Yes Expiration Date Implant Expiration 08/23/23 05/20/22 Date Wasted Radioactive Material Time Implanted Tissue Implant Continue for Tissue Implant Documentation Tissue Identification Number Graft Prep Per Yes Rn Maternity Instructions: Tissue Preparation N/A Method: Reconstitution Solution: Reconstitution Solution Lot Number Reconstitution Solution Expiration Date: Thawing Solution Thawing Solution Lot Number Thawing Solution Expiration Date Preparation NACL Materials, Other Preparation [id number] Materials, Other Lot Number Preparation 06/22/22 Materials, Other Expiration Date Tissue MARLON, MELODY Prepared/Processed By Rn Maternity Yes Paperwork Completed Implant Type Comment Last Modified By: RADHA VALENCIA RN ALTIZER, LISA E, RN 11/16/18 09:42:38 11/16/18 09:42:38 [facility] Intra[facility] Intraoperative Assessment Entry 1 Handoff Reported [...] Modified By: RADHA VALENCIA RN 11/16/18 08:25:54 [facility] IntraOp Intraoperative Equipment Entry 1 Equipment Intraop Monitoring Blood Pressure Non-Invasive BP Device Source Blood Pressure Arm, right upper Location Pulse Oximeter Hand, left Probe Site Antiembolic Devices Scopes Photo/Video Documentation Last Modified By: RADHA VALENCIA RN 11/16/18 08:51:22 [facility] Intra[facility] Medication Admin Entry 1 Entry 2 Entry 3 Medication/Irrigant papverine HCL 30mg/ml lidocaine 1% 50ml vial NS 0.9% 50ml injection 10ml - [id number] - [id number] - [id number] Combo Med List Time Administered Route of FLUSH MAMMARY LOCAL FLUSH Administration Dose Dose 150 8 30 Unit of Measure mg ml ml Volume Administered By JULIO CESAR CARVALHO MD-[facility] ERASMO LÓPEZ PA MEECE, PAUL, PA Procedure Irrigation Irrigant Volume In Irrigant Volume Out Last Modified By: RADHA VALENCIA RN ALTIZER, LISA E, RN ALTIZER, LISA E, RN 11/16/18 08:52:11 11/16/18 11:07:14 11/16/18 08:52:11 Entry 4 Entry 5 Medication/Irrigant Ancef 1Gm advantage KT TISSEEL VH SD vial - [id number] Combo Med List Time Administered Route of IRRIGATION TOPICAL Administration Dose Dose 1 10 Unit of Measure gram ml Volume Administered By JULIO CESAR CARVALHO MD-CAT JULIO CESAR CARVALHO MD-CAT Procedure Irrigation Irrigant Volume In Irrigant Volume Out Last Modified By: RADHA VALENCIA RN ALTIZER, LISA E, RN 11/16/18 08:52:11 11/16/18 09:49:07 [facility] Intra[facility] Medication Admin Audit 11/16/18 11:07:14 Spanner Operator: ALTIZEL Modifier: ALTIZEL 2 <*> Medication/Irrigant lidocaine 1% 50ml vial - [id number] 2 <*> Administered By ALLA SORIANO RN 11/16/18 09:49:07 Spanner Operator: ALTIZEL Modifier: ALTIZEL <+> 5 Medication/Irrigant <+> 5 Route of Administration <+> 5 Administered By <+> 5 Dose <+> 5 Unit of Measure [facility] IntraOp Patient Positioning Entry 1 Procedure Aortic [...] Modified By: RADHA VALENCIA RN 11/16/18 08:49:03 [facility] IntraOp Patient Positioning Audit 11/16/18 09:58:34 Spanner Operator: ALTIZEL Modifier: ALTIZEL 1 <*> Procedure Aortic Aneurysm Ascending Repair, CABG w Aortic Valve [facility] IntraOp Sign In Entry 1 Patient, Site, [...] Modified By: RADHA VALENCIA RN 11/16/18 07:19:47 [facility] Intra[facility] Sign Out Entry 1 RN Confirmation [...] Modified By: RADHA VALENCIA RN 11/16/18 12:41:17 [facility] IntraOp Skin Prep Entry 1 Procedure Transesophageal Echocardiogram Prescribed Yes Pre-Surgical Prep Completed Prep Area Chin to TOES Intraop Prep Integumentary WDL Assessment WDL Patients Normal WDL Integumentary Variance(s) Prep Agents Chloraprep Prep by RADHA VALENCIA RN Skin Prep Comment Xander Soriano also prepped Hair Removal Last Modified By: RADHA VALENCIA RN 11/16/18 08:52:45 [facility] Intra[facility] Skin Prep Audit 11/16/18 09:58:34 Spanner Operator: ALTIZEL Modifier: ALTIZEL <+> 1 Procedure [facility] IntraOp Surgical Procedures Entry 1 Entry 2 [...] RN 11/16/18 09:57:36 11/16/18 08:49:06 11/16/18 09:58:24 [facility] IntraOp Surgical Procedures Audit 11/16/18 12:41:26 Spanner Operator: ALTIZEL Modifier: ALTIZEL <+> 1 Stop <+> 2 Stop <+> 3 Stop 11/16/18 10:51:43 Spanner Operator: ALTIZEL Modifier: ALTIZEL 1 <*> Procedure Aortic Aneurysm Ascending Repair 11/16/18 10:17:14 Spanner Operator: ALTIZEL Modifier: ALTIZEL <+> 3 Start 11/16/18 09:58:24 Spanner Operator: ALTIZEL Modifier: ALTIZEL <+> 3 Procedure <+> 3 Primary Procedure <+> 3 Primary Surgeon <+> 3 Specialty <+> 3 Wound Class <+> 3 Anesthesia Type 11/16/18 09:57:36 Spanner Operator: ALTIZEL Modifier: ALTIZEL 1 <*> Procedure Aortic Aneurysm Ascending Repair 1 <*> Additional Procedure Description (ASCENDING AORTIC ANEURYSM REPAIR, CABG, POSSIBLE AORTIC VALVE REPLACEMENT) [facility] Intra[facility] Temp Regulation Devices Entry 1 Entry 2 Temp Regulation Temperature Forced Air Warming Warm blankets Regulation Device device Temperature [id number] Regulation Device Serial/Unit Number Temperature Lower body Full body Regulation Site Temperature Device 43 DEG C Setting Temperature RADHA VALENCIA RN ALTIZER, LISA E, RN Regulation Device Applied by Temperature CATIA HUGGER TURNED ON Regulation Comment AFTER AORTIC CROSS CLAMP REMOVED Last Modified By: RADHA VALENCIA RN ALTIZER, LISA E, RN 11/16/18 08:53:25 11/16/18 08:53:25 [facility] Intra[facility] Time Out Entry 1 Procedure to [...] Modified By: RADHA VALENCIA RN 11/16/18 09:58:34 [facility] Intra[facility] Time Out Audit 11/16/18 09:58:34 Spanner Operator: EARNESTINE Modifier: ALTIZEL 1 <*> Procedure to be Performed Aortic Aneurysm Ascending Repair, CABG w Aortic Valve Case Comments <None> Finalized By: JODI PITT Document Signatures Signed By: RADHA VALENCIA RN 11/16/18 12:41 JODI PITT 11/17/18 10:03 Unfinalized History Date/Time Username Reason for Unfinalizing Freetext Reason for Unfinalizing 11/17/18 09:59 [email or web address] Correct Billing Electronically signed by Parveen [facility] Conversion Slot Editor Cerner at 12/08/2022 12:09 PM CDT documented in this encounter Plan of Treatment Not on file documented as of this encounter Visit Diagnoses Not on filedocumented in this encounter
--- OUTSIDE RECORDS SUMMARY | 2025-05-29 08:59 | XMS_ITS | Encounter Summary ---
Author Organization [employer] ([place], [place], [place], [place]) Address [address] [place] [address] Care Team Providers Care City Letter Carrier Name Role Phone Unavailable Primary Care Provider Unavailabl e Encounter Details Date Type Department Care Team (Late st Contact Info) Description 11/24/2018 Transcribed Document [facility] [place] Family Medicine [address] [place] [address] ProviderErika MD [address] [place], [...] Electronically signed by Christina Saini Conversion Quality Control Lab Technician Felipe at 12/08/2022 12:12 PM CDT documented in this encounter Plan of Treatment Not on file documented as of this encounter Visit Diagnoses Not on filedocumented in this encounter
--- OUTSIDE RECORDS SUMMARY | 2025-05-29 08:59 | XMS_ITS | Encounter Summary ---
Author Organization [employer] ([place], [place], [place], [place]) Address [address] [place] [address] Care Team Providers Care Final Expense Agent Name Role Phone Unavailable Primary Care Provider Unavailabl e Encounter Details Date Type Department Care Team (Late st Contact Info) Description 11/24/[address] [facility] [place] Family Medicine [address] [place] [address] ProviderErika MD [address] [place], [...] Bed scale Routine Weight Entry Format : Rena Lara Routine Weight, Pounds : 180 lb Routine Weight, Ounces : 8 oz Routine Weight Calculation : 82.05 kg Height Source : Measured Height Entry Format : Rena Lara Height, Feet : 6 ft Height, Inches : 1 Inch Clinical Height : 185.42 cm Body Surface Area (BSA), Routine : 2.06 m2 Body Mass Index (BMI), Routine : 23.87 kg/m2 SHELDON MUELLER RN - 11/24/2018 3:36 EDT Electronically signed by Christina Saini Conversion Hotel Assistant General Manager Cerner at 12/08/2022 12:39 PM CDT documented in this encounter Plan of Treatment Not on file documented as of this encounter Visit Diagnoses Not on filedocumented in this encounter
--- OUTSIDE RECORDS SUMMARY | 2025-05-29 08:59 | XMS_ITS | Encounter Summary ---
Author Organization [employer] ([place], [place], [place], [place]) Address [address] [place] [address] Care Team Providers Care Live Truck Operator Name Role Phone Unavailable Primary Care Provider Unavailabl e Encounter Details Date Type Department Care Team (Late st Contact Info) Description 11/16/2018 Transcribed Document [facility] [place] [address] [place] [address] ProviderErika MD [address] [place] [address] Social History Tobacco Use Types [...] anterior descending). SURGEON: Porfirio Gaxiola IV, MD FILM ARCHIVIST: Saud Oliver (AMANDA) ANESTHESIA: General orotracheal. CLINICAL [...] Gaxiola IV, M.D. Electronically signed by Parveen [facility] Conversion Jewelry Estimator Cerner at 12/08/2022 12:25 PM CDT documented in this encounter Plan of Treatment Not on file documented as of this encounter Visit Diagnoses Not on filedocumented in this encounter
--- OUTSIDE RECORDS SUMMARY | 2025-05-29 09:00 | XMS_ITS | Encounter Summary ---
Author Organization [employer] ([place], [place], [place], [place]) Address [address] [place] [address] Care Team Providers Care Software Support Analyst Name Role Phone Unavailable Primary Care Provider Unavailabl e Encounter Details Date Type Department Care Team (Late st Contact Info) Description 11/19/2018 Transcribed Document [facility] [place] [address] [place] [address] ProviderErika MD [address] [place], [place] [id number] Social History Tobacco Use Types Packs/Day Years [...] 1940 Associated Diagnoses: CAD (coronary artery disease), [place] coronary artery; Thrombocytopenia; Coronary artery disease; [...] S1, S2, No edema. Integumentary: Warm, Dry, [place], incision is C/D/I, He did not follow [...] Prophylaxis: SCDs Diagnosis CAD (coronary artery disease), [place] coronary artery - Admitting, Medical. Thrombocytopenia [...]
--- OUTSIDE RECORDS SUMMARY | 2025-05-29 09:00 | XMS_ITS | Encounter Summary ---
Author Organization [employer] ([place], [place], [place], [place]) Address [address] [place] [address] Care Team Providers Care Curb And Gutter Laborer Name Role Phone Unavailable Primary Care Provider Unavailabl e Encounter Details Date Type Department Care Team (Late st Contact Info) Description 11/27/2018 Transcribed Document [facility] [place] [address] [place] [address] ProviderErika MD [address] [place], [place] [id number] Social History Tobacco Use Types Packs/Day Years [...] Diagnoses: CAD (coronary artery disease), [place] coronary artery; Thrombocytopenia; Coronary artery disease; HTN [...] swelling - improved today. Integumentary: Warm, Dry, [place], incision is C/D/I. Neurologic: Alert, Oriented, left [...] (Current Encounter/Past 24 Hours) PT 14.8 Second(s) [place] 11/27/2018 07:36 PTT 55.8 Second(s) [place] 11/26/2018 11:12 INR 1.4 [place] 11/27/2018 07:36 . Impression and Plan Plan: [...] time of discharge- has sent information to [facility] -Transfer to [facility] 11/24/18 -POD#8 -Awaiting transfer to [facility] -Awaiting response from [facility] 11/25/18 -left upper extremity venous doppler - doppler this am positive for LUE DVT - will start coumadin and heparin bridge -awaiting [facility] 11/26/18 -Heparin drip and coumadin for LUE DVT Left arm swelling improved today INR 1.1 today, INR goal 2-3 Possibly transfer to [facility] this weekend 11/27/18: Left arm swelling continues to improve Continues on Coumadin and heparin bridge INR: 1.4 (1.1 yesterday) goal: 2 to 3 [facility] soon,? Tomorrow EF 55-60% per echo 11/16/18 DVT Prophylaxis: SCDs Diagnosis CAD (coronary artery disease), [place] coronary artery - Admitting, Medical. Thrombocytopenia - [...]
--- OUTSIDE RECORDS SUMMARY | 2025-05-29 09:00 | XMS_ITS | Encounter Summary ---
Author Organization [employer] ([place], [place], [place], [place]) Address [address] [place] [address] Care Team Providers Care Medic Technician Name Role Phone Unavailable Primary Care Provider Unavailabl e Encounter Details Date Type Department Care Team (Late st Contact Info) Description 11/05/2018 Transcribed Document [facility] Cardiology [address] [place] [address] Lc Armendariz MD [address] [facility] [address] [place] [address] Social History Tobacco Use Types [...] 1940 Associated Diagnoses: None Author: LC ARMENDARIZ MD-[facility] Basic Information PCP: Sanjuana Valdez [...] All Problems Prostate stricture / SNOMED CT 73091495 / Confirmed HTN - Hypertension / SNOMED CT 6985994226 / Confirmed Hypothyroidism / SNOMED CT 69065091 / Confirmed Aneurysm / SNOMED CT 0014113399 / Confirmed Disorder of prostate / SNOMED CT 31463462 / Confirmed Thyroid disease / SNOMED CT 757110349 / Confirmed Restless legs syndrome / SNOMED CT 52735817 / Confirmed Cancer of skin of face / SNOMED CT 7083689263 / Confirmed At risk for sleep apnea / IMO 91960091 / Confirmed Resolved: Bladder stone / SNOMED CT 372153335 Histories No education data available. Social & Psychosocial Habits Alcohol 04/16/2017 Alcohol Use History, Social Habits No Alcohol Use in Last Twelve Months No Substance Abuse 04/16/2017 Recreational Drug Use History No Recreational Drug Use Last 12 Months No Tobacco 04/16/2017 Smoking Status Never smoker Past Medical History: Active HTN - Hypertension (8218646705) Hypothyroidism (22281227) Family History: Entire family history is negative. [...] of motion, Normal strength. Integumentary: Warm, Dry, [place]. Neurologic: Alert, Oriented. Psychiatric: Cooperative. Review / [...]
--- OUTSIDE RECORDS SUMMARY | 2025-05-29 09:00 | XMS_ITS | Encounter Summary ---
Author Organization [employer] ([place], [place], [place], [place]) Address [address] [place] [address] Care Team Providers Care Manager Laboratory Name Role Phone Unavailable Primary Care Provider Unavailabl e Encounter Details Date Type Department Care Team (Late st Contact Info) Description 11/26/2018 Transcribed Document [facility] [place] Family Medicine [address] [place] [address] ProviderErika MD [address] [place] [address] Social History Tobacco Use Types [...]
--- OUTSIDE RECORDS SUMMARY | 2025-05-29 09:00 | XMS_ITS | Encounter Summary ---
Author Organization [employer] ([place], [place], [place], [place]) Address [address] [place] [address] Care Team Providers Care Physician Practice Market Manager Name Role Phone Unavailable Primary Care Provider Unavailabl e Encounter Details Date Type Department Care Team (Late st Contact Info) Description 11/19/2018 Transcribed Document [facility] [place] Family Medicine [address] [place] [address] ProviderErika MD [address] [place] [address] Social History Tobacco Use Types [...] TF regimen to add fiber. EST NEEDS: 1031-1810 kcal (25-30kcal/kg), 95g pro (1.2g/kg) 1. Change TF to Jevity 1.5 @ 60 ml/hr + 1 bottle [id number] daily (Provides 2040 kcal; 99 gm pro) Goal: meet est needs 2. Monitor alertness and appropriateness for GEM TECHNICIAN eval Goal: est safe po diet 3. Weigh pt 2x weekly Goal: no sig weight changes High Risk DAVION GREEN RD, LD - 11/19/2018 12:43 EDT Electronically signed by Parveen, [facility] Conversion Electrical Products Sales Engineer Cerner at 12/08/2022 12:18 PM CDT documented in this encounter Plan of Treatment Not on file documented as of this encounter Visit Diagnoses Not on filedocumented in this encounter
--- OUTSIDE RECORDS SUMMARY | 2025-05-29 09:00 | XMS_ITS | Encounter Summary ---
Author Organization [employer] ([place], [place], [place], [place]) Address [address] [place] [address] Care Team Providers Care Body Sander Name Role Phone Unavailable Primary Care Provider Unavailabl e Encounter Details Date Type Department Care Team (Late st Contact Info) Description 11/05/2018 Transcribed Document [facility] [place] Family Medicine [address] [place] [address] ProviderErika MD [address] [place] [address] Social History Tobacco Use Types Packs/Day Years Used Date Smoking Tobacco: Never Assessed Sex and Gender Information Value Date Recorded Sex Assigned at Not on file Legal Sex Male 5:03 PM CDT Gender Identity Not on file Sexual Orientation Not on file documented as of this encounter Miscellaneous Notes * Cerner Conversion Note - Erika ProviderMD - 11/05/2018 12:48 PM CDT [address] [address] Patient Copy Patient Information: Name: DOTTIE VILLASENOR Current Date: 11/05/2018 12:48:54 : 1940 Patient Address: [address] [place] [id number] Patient Attending Physician: LEYLA ARMENDARIZ MD-CAR Primary Care Provider: DEMETRICE ARMIJO NP-JORGE Primary Care Provider Discharge Diagnosis: Weight on Admission: 170 lb, 0 oz Comment: Follow-up Instructions: With: Address: When: JULIO CESAR GAXIOLA [address] [place] [address], [address] [address] Business (1) 1:30 PM Comments: Follow up with Dr. Gaxiola , surgeon, October at 1:30 pm With: Address: When: JULIO CESAR [address] [place] [address] Profista (1) 1:15 PM Comments: Follow up with [...] you are awake and alert. ??? Take dqxq-fof-vzglakp and prescription medicines only as told by [...] 05/31/2014 Document Revised: 01/12/2017 Document Reviewed: 11/29/2016 [employer] Interactive Patient Education ? 2017 [employer]. Radial Site Care Introduction Refer to [...] 02/26/2006 Document Revised: 01/15/2017 Document Reviewed: 01/11/2014 [employer]il[employer] Interactive Patient Education ? 2017 [employer]. CIGARETTE SMOKING: The facts are clear, cigarette smoking will shorten your life. Smoking can cause many illnesses along the way. As a healthcare provider, we recommend that you stop smoking. Assistance with quitting is available by contacting 0-594-ANGU-NOW. This is a free resource providing counseling, [...] Be sure to sign up for the [facility] patient portal, which gives you 16/03 access to your medical information ??? including these discharge instructions ??? using your computer, smartphone, or tablet. Just go to ebookpie to get started. Questions? Call . [facility] would like to thank you for allowing us to assist you with your healthcare needs. HAMILTON Jarvis ROBERT H, (or international sales representative) have received the above patient education materials/instructions and have verbalized understanding: Patient Signature _ Date/Time Patient Service Employee Signature (if needed) Date/Time Clinician/Hospital Service Employee Signature (if needed) Date/Time Electronically signed by Parveen, [facility] Conversion Children'S Program Coordinator Cerner at 12/08/2022 12:14 PM CDT documented in this encounter Plan of Treatment Not on file documented as of this encounter Visit Diagnoses Not on filedocumented in this encounter
--- OUTSIDE RECORDS SUMMARY | 2025-05-29 09:00 | XMS_ITS | Encounter Summary ---
Author Organization [employer] ([place], [place], [place], [place]) Address [address] [place] [address] Care Team Providers Care Outreach Representative Name Role Phone Unavailable Primary Care Provider Unavailabl e Encounter Details Date Type Department Care Team (Late st Contact Info) Description 11/05/2018 Transcribed Document [facility] [place] [address] [place] [address] ProviderErika MD [address] [place] [address] Social History Tobacco Use Types [...]
--- OUTSIDE RECORDS SUMMARY | 2025-05-29 09:00 | XMS_ITS | Encounter Summary ---
Author Organization [email or web address] ([place], [place], [place], [place]) Address [address] [place] [address] Care Team Providers Care Rug Inspector Helper Name Role Phone Unavailable Primary Care Provider Unavailabl e Encounter Details Date Type Department Care Team (Late st Contact Info) Description 11/27/2018 Transcribed Document [facility] [place] Family Medicine [address] [place] [address] ProviderErika MD [address] [place] [address] Social History Tobacco Use Types [...] EDT Electronically signed by Christina Saini Conversion Application Design Engineer Felipe at 12/08/2022 12:24 PM CDT documented in this encounter Plan of Treatment Not on file documented as of this encounter Visit Diagnoses Not on filedocumented in this encounter
--- OUTSIDE RECORDS SUMMARY | 2025-05-29 09:00 | XMS_ITS | Encounter Summary ---
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
--- OUTSIDE RECORDS SUMMARY | 2025-05-29 09:00 | XMS_ITS | Encounter Summary ---
Author Organization [email or web address] ([place], [place], [place], [place]) Address [address] [place] [address] Care Team Providers Care Movie Editor Name Role Phone Unavailable Primary Care Provider Unavailabl e Encounter Details Date Type Department Care Team (Late st Contact Info) Description 11/16/2018 Transcribed Document [facility] [place] [address] [place] [address] ProviderErika MD [address] [place] [address] Social History Tobacco Use Types [...]
--- OUTSIDE RECORDS SUMMARY | 2025-05-29 09:00 | XMS_ITS | Encounter Summary ---
Author Organization [employer] ([place], [place], [place], [place]) Address [address] [place] [address] Care Team Providers Care Computerized Mill Mill Recorder Name Role Phone Unavailable Primary Care Provider Unavailabl e Encounter Details Date Type Department Care Team (Late st Contact Info) Description 11/05/2018 Transcribed Document [facility] [place] [address] [place] [address] ProviderErika MD [address] [place] [address] Social History Tobacco Use [...] Source : Stated Height Entry Format : [place] Height, Feet : 6 ft(Converted to: 183 cm, 72 Inch) Height, Inches : 1 Inch(Converted to: 0 ft 1 Inch, 2.54 cm) Clinical Height : 185.42 cm Weight Source : Standing scale Weight Entry Format : [place] Clinical Dosing Weight : 77.27 kg Weight, Pounds : 170 lb Body Surface Area (BSA) : 2.01 m2 Body Mass Index : 22.5 kg/m2 [place] Body Weight : 79 kg SRIRAM PATEL [...] Any Spiritual/Cultural Needs or Requests : No Christianity Preference : Evangelical SRIRAM PATEL RN - [...] Obtained From : Patient Primary Language : Greek Preferred Communication Mode : Verbal Communication Barrier [...] Scale Risk Level : 0-24 Low Risk [place] Fall Interventions : Adequate lighting, Bed in [...] the text rendition version of the form. Landrum Coma Landrum Best Motor Response : Obey commands Kavin Best Verbal Response : Oriented [place] Eye Opening Response : Spontaneous Kavin Coma Score : 15 SRIRAM PATEL RN - 11/05/2018 8:49 EDT documented in this encounter Plan of Treatment Not on file documented as of this encounter Visit Diagnoses Not on filedocumented in this encounter
--- OUTSIDE RECORDS SUMMARY | 2025-05-29 09:00 | XMS_ITS | Encounter Summary ---
Author Organization [employer] ([place], [place], [place], [place]) Address [address] [place] [address] Care Team Providers Care Local Government Legislator Name Role Phone Unavailable Primary Care Provider Unavailabl e Encounter Details Date Type Department Care Team (Late st Contact Info) Description 11/15/2018 Transcribed Document [facility] [place] [address] [place] [address] ProviderErika MD [address] [place], [...] : Measured Height Entry Format : [place] Height, Feet : 6 ft(Converted to: 183 cm, 72 Inch) Height, Inches : 1 Inch(Converted to: 0 ft 1 Inch, 2.54 cm) Clinical Height : 185.42 cm Weight Source : Standing scale Weight Entry Format : [place] Clinical Dosing Weight : 79.23 kg Weight, Pounds : 174 lb Weight, Ounces : 5 oz Body Surface Area (BSA) : 2.03 m2 Body Mass Index : 23 kg/m2 [place] Body Weight : 79 kg ANGELA KEY [...] Ambulatory Legal Guardian : Spouse Support Person/Patient Business Dean : Yes Support Person/Pt Rep Name : Connie- Sumeet - son Support Person/Pt Rep Contact Information : [phone] home [phone] - cell Want Family/Rep/Phys Notified of Admit : No Emergency Contact #1 : Connie Emergency Contact #1 Emergency Contact #1 Relationship : Emergency Contact #2 : Sumeet Emergency Contact #2 Emergency Contact #2 Relationship : son Information Obtained From : Patient, Medical Record Primary Language : Wallisian Preferred Communication Mode : Verbal Communication Barrier [...] 11/15/2018 13:52 EDT Electronically signed by Parveen [facility] Conversion Chicle Grinder Feeder Cerner at 12/08/2022 12:30 PM CDT documented in this encounter Plan of Treatment Not on file documented as of this encounter Visit Diagnoses Not on filedocumented in this encounter
--- OUTSIDE RECORDS SUMMARY | 2025-05-29 09:00 | XMS_ITS | Encounter Summary ---
Author Organization [employer] ([place], [place], [place], [place]) Address [address] [place] [address] Care Team Providers Care Pension Agent Name Role Phone Unavailable Primary Care Provider Unavailabl e Encounter Details Date Type Department Care Team (Late st Contact Info) Description 11/27/2018 Transcribed Document [facility] [place] Family Medicine [address] [place] [address] ProviderErika MD [address] [place] [...] Nida Thomas RN - 11/27/2018 19:40 EDT Electronically signed by Parveen hilario Conversion Special Projects Coordinator Cerner at 12/08/2022 12:32 PM CDT documented in this encounter Plan of Treatment Not on file documented as of this encounter Visit Diagnoses Not on filedocumented in this encounter
--- OUTSIDE RECORDS SUMMARY | 2025-05-29 09:00 | XMS_ITS | Encounter Summary ---
Author Organization [employer] ([place], [place], [place], [place]) Address [address] [place] [address] Care Team Providers Care Environmental Epidemiologist Name Role Phone Unavailable Primary Care Provider Unavailabl e Encounter Details Date Type Department Care Team (Late st Contact Info) Description 11/26/2018 Transcribed Document [facility] [place] Family Medicine [address] [place] [address] ProviderErika MD [address] [place] [address] Social History Tobacco Use Types [...] On: 11/26/2018 9:15 EDT by JOSSUE RODRÍGUEZ PELLETIZER OPERATOR General Information Visit Type, PELLETIZER OPERATOR : Re-Evaluation Patient Orders : PELLETIZER OPERATOR Fxoliver Limitation Documentation x 1 -111 Start: 11/25/18 10:29:25 EDT - SYSTEM, SYSTEM Speech Language Pathology Modified Barium Swallow Study - Start: 11/26/18 7:00:00 EDT, Routine, For Other (see special instructions), Dysphagia -111 GISSEL ZHANG PA PELLETIZER OPERATOR Fxnl Limitation Documentation - Start: 11/20/18 9:37:47 EDT, Continuous Order -111 SYSTEM, SYSTEM Speech Language Pathology Additional Tx - Start: 11/20/18 9:36:00 EDT, For Dysphagia, Continuous Order -111 Admission Date : Admission Date/Time: 11/16/18 06:45:00 Medical Chart Reviewed, PELLETIZER OPERATOR : Yes Personal Devices : Personal Devices No Devices Recorded Assistive Devices : Assistive Devices No Devices Recorded Active Diagnoses : 11/23/2018 00:00 Cerebral infarction, unspecified 11/17/2018 00:00 Atherosclerotic heart disease of [place] coronary artery without angina pectoris 11/17/2018 00:00 Essential (primary) hypertension 11/17/2018 00:00 Hypothyroidism, unspecified 11/17/2018 00:00 Nonrheumatic aortic (valve) insufficiency 11/17/2018 00:00 Restless legs syndrome 11/17/2018 00:00 Thoracic aortic aneurysm, without rupture 11/17/2018 00:00 Thrombocytopenia, unspecified 11/16/2018 00:00 Atherosclerotic heart disease of [place] coronary artery without angina pectoris 11/16/2018 00:00 Nonrheumatic aortic (valve) insufficiency 11/16/2018 00:00 Thoracic aortic aneurysm, without rupture Therapy Diagnosis, PELLETIZER OPERATOR : functional oropharyngeal skills Previous Speech/Language Evaluations : N/A Previous Swallow Precautions : Bedside 11/20 recommended instrumental prior to initiating PO diet, FEES recommended reg/nectar. Pt has participated in tx and is ready for a repeat study Previous Cognitive Evaluations : this admit Diet/Intake Prior to Current Admission : Regular/thin Diet/Intake During Current Admission : reg/thin following MBS Intubation Comment, PELLETIZER OPERATOR : 11/16-11/17 Vital Signs RTF : [...] 9:15 EDT General Status Patient Received Status, PELLETIZER OPERATOR : Up in chair Patient Left Status, PELLETIZER OPERATOR : Up in chair JOSSUE RODRÍGUEZ SLP [...] Consistencies Trialed MB/VFSS : Thin by straw, [place] by straw, Pudding JOSSUE RODRÍGUEZ, ERIC - 11/26/2018 9:15 EDT Swallow Impressions Impressions, MBSS/VFSS : Functional swallow for oral intake JOSSUE RODRÍGUEZ SLP - 11/26/2018 9:15 EDT 8 Point Penetration/Aspiration Grid Thin by Straw : 1 [place] by Straw : 1 Pudding : 1 [...] Discussed briefly with CTS PA. JOSSUE RODRÍGUEZ, PELLETIZER OPERATOR - 11/26/2018 9:15 EDT Swallow Recommendations Recommended Diet Type, SwRec : Regular Recommended Liquid Diet, SwRec : Thin Swallow Position, SwRec : Upright 90 degrees Supervision Level w/Meals, SwRec : Independent, modified Recommended Med Present, SwRec : As per nursing JOSSUE RODRÍGUEZ SLP - 11/26/2018 9:15 EDT Therapy Indication Assessment PELLETIZER OPERATOR Indicated : No PELLETIZER OPERATOR Not Indicated : At prior level of function JOSSUE RODRÍGUEZ SLP - 11/26/2018 9:15 EDT Swallow Plan/Goals Swallow LTG Grid PELLETIZER OPERATOR Medical Surgery Nurse Goal #1 PELLETIZER OPERATOR Alf Goal #2 Swallow LTG : [...] JOSSUE RODRÍGUEZ SLP - 11/26/2018 9:15 EDT PELLETIZER OPERATOR Education Assessment Grid 1 Aspiration : Needs further teaching Diet Recommendation : Needs further teaching JOSSUE RODRÍGUEZ SLP - 11/26/2018 9:[address] [facility] PELLETIZER OPERATOR Charges Modified Barium Swallow : 1 JOSSUE RODRÍGUEZ SLP - 11/26/2018 9:15 EDT documented in this encounter Plan of Treatment Not on file documented as of this encounter Visit Diagnoses Not on filedocumented in this encounter
--- OUTSIDE RECORDS SUMMARY | 2025-05-29 09:00 | XMS_ITS | Encounter Summary ---
Author Organization [employer] ([place], [place], [place], [place]) Address [address] [place] [address] Care Team Providers Care Digital Advisor Name Role Phone Unavailable Primary Care Provider Unavailabl e Encounter Details Date Type Department Care Team (Late st Contact Info) Description 11/05/2018 Transcribed Document [facility] [place] [address] [place] [address] ProviderErika MD [address] [place] [address] Social History Tobacco Use Types [...] you are awake and alert. ??? Take xpby-qpb-xxezrzn and prescription medicines only as told by [...] 05/31/2014 Document Revised: 01/12/2017 Document Reviewed: 11/29/2016 [employer] Interactive Patient Education ? 2017 [employer] Pulmonary Medicine Radial Site Care Introduction [...] 01/11/2014 Elsevier Interactive Patient Education ? 2017 [employer] documented in this encounter Plan of Treatment Not on file documented as of this encounter Visit Diagnoses Not on filedocumented in this encounter
--- OUTSIDE RECORDS SUMMARY | 2025-05-29 09:00 | XMS_ITS | Encounter Summary ---
Author Organization [employer] ([place], [place], [place], [place]) Address [address] [place] [address] Care Team Providers Care Project Specialist Name Role Phone Unavailable Primary Care Provider Unavailabl e Encounter Details Date Type Department Care Team (Late st Contact Info) Description 11/05/2018 Transcribed Document [facility] [place] Family Medicine [address] [place] [address] ProviderErika MD [address] [place] [address] Social History Tobacco Use [...]
--- OUTSIDE RECORDS SUMMARY | 2025-05-29 09:00 | XMS_ITS | Encounter Summary ---
Author Organization [employer] ([place], [place], [place], [place]) Address [address] [place] [address] Care Team Providers Care Utilities Ground Worker Name Role Phone Unavailable Primary Care Provider Unavailabl e Encounter Details Date Type Department Care Team (Late st Contact Info) Description 11/19/2018 Transcribed Document [facility] Cardiology [address] [place] [address] Lc Armendariz MD [address] [facility] [address] [place] [address] Social History Tobacco Use Types [...] mg, Oral, At Bedtime saliva substitutes: 1 [place], Buccal, Q2H, PRN: Other (See Comment) sodium [...] of motion, Normal strength. Integumentary: Warm, Dry, [place]. Neurologic: Alert, Oriented. Psychiatric: Cooperative, Appropriate mood & affect. Results Review NOV 19 04:08 138 105 21 / H 184 4.0 28 0.70 \ NOV 19 04:08 \ L 10.0 / H 15.0 L 101 / L 30.3 \ Radiology Results (Last 48 hours) [id number] -- 11/16/2018 06:45 CR Chest 1 Vw [...]
--- OUTSIDE RECORDS SUMMARY | 2025-05-29 09:00 | XMS_ITS | Encounter Summary ---
Author Organization [employer] ([place], [place], [place], [place]) Address [address] [place] [address] Care Team Providers Care Strip Machine Tender Name Role Phone Unavailable Primary Care Provider Unavailabl e Encounter Details Date Type Department Care Team (Late st Contact Info) Description 11/16/2018 Transcribed Document [facility] [place] [address] [place] [address] ProviderErika MD [address] [place], [place] [id number] Social History Tobacco Use Types Packs/Day Years [...] All Problems Prostate stricture / SNOMED CT 59341292 / Confirmed Restless legs syndrome / SNOMED CT 08484372 / Confirmed Nocturia / SNOMED CT 655821026 / Confirmed Cancer of skin of face / SNOMED CT 2525012769 / Confirmed Frequent urination / SNOMED CT 447254821 / Confirmed Hypothyroidism / SNOMED CT 97918277 / Confirmed HTN - Hypertension / SNOMED CT 1713281535 / Confirmed Disorder of prostate ( enlarged) / SNOMED CT 95569388 / Confirmed CAD (coronary artery disease) / SNOMED CT 87588544 / Confirmed At risk for sleep apnea / IMO 79153679 / Confirmed Arthritis / SNOMED CT 4417237 / Confirmed Aortic valve insufficiency / SNOMED CT 969938334 / Confirmed Aneurysm, thoracic aortic / SNOMED CT 8550954102 / Confirmed, Active Problems (13) Aneurysm, thoracic aortic Aortic valve insufficiency Arthritis At risk for sleep apnea CAD (coronary artery disease) Cancer of skin of face Disorder of prostate ( enlarged) Frequent urination HTN - Hypertension Hypothyroidism Nocturia Prostate stricture Restless legs syndrome Histories Past Medical History: Active HTN - Hypertension (0571953958) Hypothyroidism (90509376) Family History: Entire family history is negative. [...] EDT Height Source Measured Height Entry Format [facility] Height/Length, [place] (ft) 6 ft Height/Length [place] 1 Inch CLINICALHEIGHT 185.42 cm [place] Body Weight 79 kg Weight Source Standing scale Weight Entry Format [facility] Weight [place] lb 174 lb Weight [place] oz 5 oz CLINICALWEIGHT 79.23 kg Body [...] of motion, Normal strength. Integumentary: Warm, Dry, [place]. Neurologic: Alert, Oriented. Psychiatric: Cooperative, Appropriate mood [...] % 32.4 % Lymph # 2.32 x10(3)/uL [place] % 9.5 % HI Sampson # 0.68 K/uL Eos % 1.1 % [...] Color Yellow Urine Appearance Clear Urine Specific [place] 1.016 Urine pH Dipstick 6.5 Urine Leukocyte [...]
--- OUTSIDE RECORDS SUMMARY | 2025-05-29 09:00 | XMS_ITS | Encounter Summary ---
Author Organization [employer] ([place], [place], [place], [place]) Address [address] [place] [address] Care Team Providers Care Template Storage Clerk Name Role Phone Unavailable Primary Care Provider Unavailabl e Encounter Details Date Type Department Care Team (Late st Contact Info) Description 11/26/2018 Transcribed Document [facility] [place] [address] [place] [address] ProviderErika MD [address] [place], [place] [id number] Social History Tobacco Use Types Packs/Day Years [...] 1940 Associated Diagnoses: CAD (coronary artery disease), [place] coronary artery; Thrombocytopenia; Coronary artery disease; [...] swelling - improved today. Integumentary: Warm, Dry, [place], incision is C/D/I. Neurologic: Alert, left [...] of discharge- CM has sent information to [facility] -Transfer to [facility] 11/24/18 -POD#8 -Awaiting transfer to [facility] -Awaiting response from [facility] 11/25/18 -left upper extremity venous doppler - doppler this am positive for LUE DVT - will start coumadin and heparin bridge -awaiting [facility] 11/26/18 -Heparin drip and coumadin for LUE DVT Left arm swelling improved today INR 1.1 today, INR goal 2-3 Possibly transfer to [facility] this weekend EF 55-60% per echo 11/16/18 DVT Prophylaxis: SCDs Diagnosis CAD (coronary artery disease), [place] coronary artery - Admitting, Medical. Thrombocytopenia [...]
--- OUTSIDE RECORDS SUMMARY | 2025-05-29 09:00 | XMS_ITS | Encounter Summary ---
Author Organization [employer] ([place], [place], [place], [place]) Address [address] [place] [address] Care Team Providers Care Change Of Address Clerk Name Role Phone Unavailable Primary Care Provider Unavailabl e Encounter Details Date Type Department Care Team (Late st Contact Info) Description 11/05/2018 Transcribed Document [facility] Family Medicine [address] [place] [address] ProviderErika MD [address] [place] [address] Social History Tobacco Use Types [...] 11/05/2018 12:46 EDT Electronically signed by Parveen [facility] Conversion Step Finisher Cerner at 12/08/2022 12:20 PM CDT documented in this encounter Plan of Treatment Not on file documented as of this encounter Visit Diagnoses Not on filedocumented in this encounter
--- OUTSIDE RECORDS SUMMARY | 2025-05-29 09:00 | XMS_ITS | Encounter Summary ---
Author Organization [employer] ([place], [place], [place], [place]) Address [address] [place] [address] Care Team Providers Care Back Padder Name Role Phone Unavailable Primary Care Provider Unavailabl e Encounter Details Date Type Department Care Team (Late st Contact Info) Description 11/26/2018 Transcribed Document [facility] [place] [address] [place] [address] ProviderErika MD [address] [place] [address] Social History Tobacco Use Types [...] Care Management Note Report : LUCIE, ODALYS, Rn-Analysis Consultant - 11/24/18 13:22:19 11/24/18 Andra from [facility] called to let me know they started a precert on this pt. CF ODALYS FAULKNER, Rn-Analysis Consultant - 11/22/18 13:56:32 11/22/18 Pt has had a cva. Spoke to his Connie and son Sumeet at the bedside. Pt is lfacid on the left side. Discussed the need for STR and they decided on [facility]. Sent pt info via [facility] to [facility]. CF Documentation Status Complete : Yes ANGELA NAIR, Kettle Fry Cook Operator - 11/26/2018 11:16 EDT Electronically signed by Parveen [facility] Conversion Share[employer]ker Cerner at 12/08/2022 12:12 PM CDT documented in this encounter Plan of Treatment Not on file documented as of this encounter Visit Diagnoses Not on filedocumented in this encounter
--- OUTSIDE RECORDS SUMMARY | 2025-05-29 09:00 | XMS_ITS | Encounter Summary ---
Author Organization [employer] ([place], [place], [place], [place]) Address [address] [place] [address] Care Team Providers Care Etl Manager Name Role Phone Unavailable Primary Care Provider Unavailabl e Encounter Details Date Type Department Care Team (Late st Contact Info) Description 11/27/2018 Transcribed Document [facility] [place] [address] [place] [address] ProviderErika MD [address] [place], [place] [phone] Social History Tobacco Use Types Packs/Day Years Used Date Smoking Tobacco: Never Assessed Sex and Gender Information Value Date Recorded Sex Assigned at Not on file Legal Sex Male 5:03 PM CDT Gender Identity Not on file Sexual Orientation Not on file documented as of this encounter Miscellaneous Notes * [employer]ner Conversion Note - Historical ProviderMD - 11/27/2018 2:00 AM CDT Vocational Rehabilitation Specialist Details Entered On: 11/27/2018 3:00 EDT Performed [...]
== END 2025-05-26 23:59 ==
LOC: LAB.DROPOF 05-29 08:53
PROVIDERS: PCP Internal Medicine; Visit Provider Internal Medicine
DX: N39.0 Urinary tract infection, site not specified (principal)
CPT/HCPCS: 81001; 87086; 87088; 87186

== ENCOUNTER 2025-06-08 13:08 | Outpatient (CLI) | payer MEDICARE, SELFPAY ==
--- OUTSIDE RECORDS SUMMARY | 2025-06-08 13:16 | XMS_ITS | Data Portability ---
Author Organization LIZ XIMENA Leavitt DUNLEVY CLOSED Address [address] [place] [address] Assessment Encounter Date Assessment Date Assessment LastModified by Organization Details LastModified Time 07/01/2023 07/01/2023 PREOPERATIVE DIAGNOSIS: Bladder calculus, 13 mm. POSTOPERATIVE DIAGNOSIS: Bladder calculus, 13 mm with BPH. PROCEDURE: Cystolitholapaxy with dilation of distal urethra. 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 SURGEON: Cong Villasenor MD ANESTHESIA: General. DRAINS: 18-Malaysian urethral Michele catheter. INDICATIONS: Patient with previous [...] prepped and draped in normal fashion. A 22-Malaysian cystoscopy sheath was introduced. Pendulous urethra revealed some difficulty introducing at the meatus. I then used the [place] sounds to dilate the distal urethra up to 24-Malaysian. I then easily advanced down the urethra. [...] Lab urinalysis , dipstick, auto 2018 019 [facility] Extended Services With [facility], [address], [address] [place] [address], [address], 9 08:09:21 urinalysis , dipstick, auto 2018 019 [facility] Extended Services With [facility], [address], [address], [place], [address], 9 14:02:35 Referral None recorded. Procedures None recorded. Surgeries None recorded. Imaging None recorded. Medication Orders trospium ER 60 mg capsule,ex tended release 24 hr 2022 023 [facility] [address] [place], [address], 3 14:33:52 alfuzosin ER 10 mg tablet,ext ended release 24 hr 2018 019 [facility] [address] [place], [address], 9 15:32:14 Patient TargetsNo targets recorded. Patient Instructions Encounter Date Encounter Id Patient Instructions Last Modified By Organization Details Last Modified Time 05/16/2019 [id number] At this point given the patient's comorbid [...] weeks. [email or web address] Not available 05/16/2019 14:03:13 06/27/2019 [id number] continue medical therapy [email or web address] Not available 06/29/2019 08:09:20 Reason for Referral None Reported. Results Created Date Observation Date Name Description Value Unit Range Abnormal Flag Note LastModifiedBy Organization Detail LastModifiedTime 06/27/2006/27/2019 urina lysis , dipst ick, auto Unknown Analyte Yellow Not Available [facility] Extended Services With [address], [place], [address], 06/27/2019 15:52:46 06/27/2006/27/2019 urina lysis , dipst ick, auto Unknown Analyte Clear Not Available [facility] Extended Services With [place] [address] [facility] [address], [place], [address], 06/27/2019 15:52:46 06/27/20 19 06/27/2019 urina lysis , dipst ick, auto Unknown Analyte 1.010 Not Available [facility] Extended Services With [place] [address], [place], [address], 06/27/2019 15:52:46 06/27/20 19 06/27/2019 urina lysis , dipst ick, auto Unknown Analyte 1.003 - 1.035 Not Available [facility] With [facility] [address], [place], [address], 06/27/2019 15:52:46 06/27/20 19 06/27/2019 urina lysis , dipst ick, auto Unknown Analyte 7.0 Not Available [facility] Extended Services With [place] [address] [facility] [address], [place], [address], 06/27/2019 15:52:46 06/27/20 19 06/27/2019 urina lysis , dipst ick, auto Unknown Analyte 5.0 - 8.0 Not Available [facility] [place] [facility] Services With [facility] [address], [place], [address], 06/27/2019 15:52:46 06/27/20 19 06/27/2019 urina lysis , dipst ick, auto Unknown Analyte Negati ve Not Available [facility] [place] Extended Services With [facility] [address], [place], [address], 06/27/2019 15:52:46 06/27/20 19 06/27/2019 urina lysis , dipst ick, auto Unknown Analyte Negati ve Not Available [facility] [place] Extended Services With [facility] [address], [place], [address], 06/27/2019 15:52:46 06/27/20 19 06/27/2019 urina lysis , dipst ick, auto Unknown Analyte Negati ve Not Available [facility] [place] [facility] Services With [facility] [address], [place], [address], 06/27/2019 15:52:46 06/27/2006/27/2019 urina lysis , dipst ick, auto Unknown Analyte Negati ve Not Available [facility] [place] Extended Services With [facility] [address], [place], [address], 06/27/2019 15:52:46 06/27/20 19 06/27/2019 urina lysis , dipst ick, auto Unknown Analyte Negtiv e Not Available [facility] [place] Extended Services With [facility] [address], [place], [address], 06/27/2019 15:52:46 06/27/20 19 06/27/2019 urina lysis , dipst ick, auto Unknown Analyte Negati ve - Trace Not Available [facility] [place] Extended Services With [facility] [address], [place], [address], 06/27/2019 15:52:46 06/27/20 19 06/27/2019 urina lysis , dipst ick, auto Unknown Analyte Normal Not Available [facility] [place] Extended Services With [facility] [address], [place], [address], 06/27/2019 15:52:46 06/27/20 19 06/27/2019 urina lysis , dipst ick, auto Unknown Analyte Normal Not Available [facility] [place] Extended Services With [facility] [address], [place], [address], 06/27/2019 15:52:46 06/27/20 19 06/27/2019 urina lysis , dipst ick, auto Unknown Analyte Negati ve Not Available [facility] [place] Extended Services With [facility] [address], [place], [address], 06/27/2019 15:52:46 06/27/20 19 06/27/2019 urina lysis , dipst ick, auto Unknown Analyte Negati ve Not Available [facility] [place] Extended Services With [facility] [address], [place], [address], 06/27/2019 15:52:46 06/27/20 19 06/27/2019 urina lysis , dipst ick, auto Unknown Analyte Normal Not Available [facility] [place] Extended Services With [facility] [address], [place], [address], 06/27/2019 15:52:46 06/27/20 19 06/27/2019 urina lysis , dipst ick, auto Unknown Analyte Normal - 1mg/dl Not Available [facility] [place] Extended Services With [facility] [address], [place], [address], 06/27/2019 15:52:46 06/27/2006/27/2019 urina lysis , dipst ick, auto Unknown Analyte Negati ve Not Available [facility] [place] Extended Services With [facility] [address], [place], [address], 06/27/2019 15:52:46 06/27/2006/27/2019 urina lysis , dipst ick, auto Unknown Analyte Negati ve Not Available [facility] [place] Extended Services With [facility] [address], [place], [address], 06/27/2019 15:52:46 06/27/20 19 06/27/2019 urina lysis , dipst ick, auto Unknown Analyte Negati ve Not Available [facility] [place] Extended Services With [facility] [address], [place], [address], 06/27/2019 15:52:46 06/27/2006/27/2019 urina lysis , dipst ick, auto Unknown Analyte Negati ve Not Available [facility] [place] Extended Services With [facility] [address], [place], [address], 06/27/2019 15:52:46 06/27/20 19 06/27/2019 urina lysis , dipst ick, auto Unknown Analyte Clean Catch Not Available [facility] [place] Extended Services With [facility] [address] [facility] [address], [place], [address], 06/27/2019 15:52:46 06/27/20 19 06/27/2019 urina lysis , dipst ick, auto Unknown Analyte Automa jamshid Not Available [facility] [place] Extended Services With [facility] [address] [facility] [address], [place], [address], 06/27/2019 15:52:46 05/16/20 19 05/16/2019 urina lysis , dipst ick, auto Unknown Analyte Yellow Not Available [facility] [place] [facility] With [facility] [address] [facility] [address], [place], [address], 05/16/2019 13:23:16 05/16/20 19 05/16/2019 urina lysis , dipst ick, auto Unknown Analyte Clear Not Available [facility] [place] [facility] [address] [facility] [address], [place], [address], 05/16/2019 13:23:16 05/16/20 19 05/16/2019 urina lysis , dipst ick, auto Unknown Analyte 1.020 Not Available [facility] Services With [facility] [address] [facility] [address], [place], [address], 05/16/2019 13:23:16 05/16/2005/16/2019 urina lysis , dipst ick, auto Unknown Analyte 1.003 - 1.035 Not Available [facility] [place] Extended Services With [facility] [address] [facility] [address], [place], [address], 05/16/2019 13:23:16 05/16/20 19 05/16/2019 urina lysis , dipst ick, auto Unknown Analyte 5.0 Not Available [facility] [place] [facility] With [facility] [address] [facility] [address], [place], [address], 05/16/2019 13:23:16 05/16/20 19 05/16/2019 urina lysis , dipst ick, auto Unknown Analyte 5.0 - 8.0 Not Available [facility] [place] Extended Services With [facility] [address], [place], [address], 05/16/2019 13:23:16 05/16/20 19 05/16/2019 urina lysis , dipst ick, auto Unknown Analyte Negati ve Not Available [facility] [place] Extended Services With [facility] [address], [place], [address], 05/16/2019 13:23:16 05/16/20 19 05/16/2019 urina lysis , dipst ick, auto Unknown Analyte Negati ve Not Available [facility] [place] Extended Services With [facility] [address], [place], [address], 05/16/2019 13:23:16 05/16/20 19 05/16/2019 urina lysis , dipst ick, auto Unknown Analyte Negati ve Not Available [facility] [place] Extended Services With [facility] [address], [place], [address], 05/16/2019 13:23:16 05/16/20 19 05/16/2019 urina lysis , dipst ick, auto Unknown Analyte Negati ve Not Available [facility] [place] Extended Services With [facility] [address], [place], [address], 05/16/2019 13:23:16 05/16/20 19 05/16/2019 urina lysis , dipst ick, auto Unknown Analyte Negtiv e Not Available [facility] [place] [facility] Services With [facility] [address], [place], [address], 05/16/2019 13:23:16 05/16/20 19 05/16/2019 urina lysis , dipst ick, auto Unknown Analyte Negati ve - Trace Not Available [facility] [place] [facility] With [facility] [address], [place], [address], 05/16/2019 13:23:16 05/16/20 19 05/16/2019 urina lysis , dipst ick, auto Unknown Analyte Normal Not Available [facility] Services With [facility] [address], [place], [address], 05/16/2019 13:23:16 05/16/20 19 05/16/2019 urina lysis , dipst ick, auto Unknown Analyte Normal Not Available [facility] Services With [facility] [address], [place], [address], 05/16/2019 13:23:16 05/16/20 19 05/16/2019 urina lysis , dipst ick, auto Unknown Analyte 15 mg/dl (Sm) Not Available [facility] Extended Services With [facility] [address], [place], [address], 05/16/2019 13:23:16 05/16/20 19 05/16/2019 urina lysis , dipst ick, auto Unknown Analyte Negati ve Not Available [facility] Extended Services With [facility] [address], [place], [address], 05/16/2019 13:23:16 05/16/20 19 05/16/2019 urina lysis , dipst ick, auto Unknown Analyte Normal Not Available [facility] With [facility] [address], [place], [address], 05/16/2019 13:23:16 05/16/20 19 05/16/2019 urina lysis , dipst ick, auto Unknown Analyte Normal - 1mg/dl Not Available [facility] [place] Extended Services With [facility] [address], [place], [address], 05/16/2019 13:23:16 05/16/20 19 05/16/2019 urina lysis , dipst ick, auto Unknown Analyte Negati ve Not Available [facility] [place] Extended Services With [facility] [address], [place], [address], 05/16/2019 13:23:16 05/16/20 19 05/16/2019 urina lysis , dipst ick, auto Unknown Analyte Negati ve Not Available [facility] [place] Extended Services With [facility] [address], [place], [address], 05/16/2019 13:23:16 05/16/20 19 05/16/2019 urina lysis , dipst ick, auto Unknown Analyte Negati ve Not Available [facility] [place] Extended Services With [facility] [address], [place], [address], 05/16/2019 13:23:16 05/16/20 19 05/16/2019 urina lysis , dipst ick, auto Unknown Analyte Negati ve Not Available [facility] [place] [facility] With [facility] [address], [place], [address], 05/16/2019 13:23:16 05/16/20 19 05/16/2019 urina lysis , dipst ick, auto Unknown Analyte Clean Catch Not Available [facility] [place] [facility] With [facility] [address], [place], [address], 05/16/2019 13:23:16 05/16/20 19 05/16/2019 urina lysis , dipst ick, auto Unknown Analyte Automa jamshid Not Available [facility] [place] Extended Services With [facility] [address], [place], [address], 05/16/2019 13:23:16 07/01/20 23 07/07/2023 STONE GERMAINE SIS composition SEE BELOW normal Calci um Oxala te Dihyd rate (Wedd ellit e) 15% Calci um Oxala te Monoh ydrat e (Whew ellit e) 70% Carbo stephany Apati te (Dahl lite) 15% See Note 1 Not Available [facility] [address] [place] [address], [address], 07/07/2023 18:14:54 07/01/2007/07/2023 STONE GERMAINE SIS weight [...] for clini long purpo ses. Not Available [facility] [address] [place], [address], 07/07/2023 18:14:54 Result Notes None recorded. Problems Name Problem SNOMED Code Status Onset Date Resolution Date Notes Provider Name and Address Organization Details Recorded Time Lower urinary tract symptoms due to benign prostatic hypertrophy 3169549034103 1 Active 2018 LEYLA SHAH JR, MD [address] [place] [address], [address] , [facility] 9 11:50:21 Increased frequency of urination 454170186 Active 2018 LEYLA SHAH JR, MD [address] [place] [address], [address], [facility] 9 20:29:31 Nocturia 567998598 Active 2018 LEYLA SHAH JR, MD [address] [place] [address], [address], [facility] 9 20:29:35 Problem Notes None recorded. Procedures Surgical History Date Name Laterality Status Provider Name and Address Organization Details Recorded Time 03/02/20 19 Post Void Residual; Ultrasound completed Rima Ivory [facility] 03/02/2019 11:46:22 04/16/20 17 MEATOTOMY, EXCEPT IN (SURG) completed CONG VILLASENOR MD [address] [place] [address], [address], [facility] 04/29/2017 10:19:09 Heart Surgery completed Deseriee [place] [facility] 03/02/2019 11:35:52 cholecystectomy completed [facility] 05/19/2023 16:19:30 Hernia Repair completed [facility] 05/19/2023 16:19:41 Prostate Surgery completed [facility] 05/19/2023 16:19:58 Urinary Bladder completed [facility] 05/19/2023 16:20:09 Imaging Results None recorded. [...] 2022 active son requests Rx changed to [facility] as pt will not be returning to [facility], so Rx called to new pharmacy [...] Updated DateTime 05/16/2019 185.42 cm 21.1 kg/m2 84547.78 g [facility] 05/16/2019 13:22:42 Date Recorded Body height Systolic And Diastolic Provider Name and Address Organization Details Last Updated DateTime 06/27/2019 185.42 cm 143/77 mm[Hg] [facility] 06/27/2019 15:52:00 Date Recorded Body height Body mass index (BMI) Body weight Provider Name and Address Organization Details Last Updated DateTime 07/08/2023 182.88 cm 29.8 kg/m2 27269.32 g John Emanuel [facility] 07/08/2023 13:21:37 Social History Question Answer Notes LastModified by Organizat ion Details LastModified Time Tobacco Smoking Status Never Smoker [facility] 03/02/2019 11:35:35 Marital Status Informatio n not available 03/02/2019 What Was The Date Of Your Most Recent Tobacco Screening? 03/02/2019 Information not available 10/11/2019 What Is Your Relationship Status? [email or web address] Information not available 05/19/2023 Has Tobacco Cessation Counseling Been Provided? No [email or web address] Information not available 05/19/2023 Sex: Unknown Functional Status Question Answer Note LastModified by Organizat ion Details LastModified Time Do you use any illicit or recreational drugs? No [email or web address] Information not available 05/19/2023 Do you or have you ever used any other forms of tobacco or nicotine? No [email or web address] Information not available 05/19/2023 What is your level of alcohol consumption? 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 Family History Relationship Description Onset Age of this Age Resolved Age Notes LastModified by Organization Details LastModified Time Unspecified Relation Family history of malignant neoplasm colon cancer [email or web address] Not available 05/19/2023 16:18:41 Unspecified Relation Kidney stone paulina Not available 05/2019 11:35:27 Medical History Condition Response Other Y Arthritis Y Cancer Y Stroke Y Kidney Disease Y Urinary Tract Infection Y Cardiac Disease Y High Cholesterol Y High PSA Y Heart Attack ([place]) Y Hypertension Y Past Encounters Encounter ID Performer Location Encounter Start Date Encounter Closed Date Diagnosis/Indication Diagnosis SNOMED-CT Code Diagnosis ICD10 Code Diagnosis IMO Codes Diagnosis Note [id number] LEYLA SHAH JR, MD [address] [place] [address] 03/02/2019 11:00:32 03/07/2019 10:05:38 Lower urinary tract symptoms due to benign prostatic hypertrophy 2399765562 9101 N40.1 Increased frequency of urination 611356415 R35.0 Nocturia 512221955 R35.1 [id number] LEYLA SHAH JR, MD [facility] [address] [facility] [address] [place] [address] 05/16/2019 13:05:53 05/18/2019 08:09:55 Lower urinary tract symptoms due to benign prostatic hypertrophy 3837047514 9101 N40.1 [id number] LEYLA SHAH JR, MD [facility] [address] [facility] [address] [place] [address] 06/27/2019 14:58:19 06/30/2019 11:19:02 Lower urinary tract symptoms due to benign prostatic hypertrophy 5778977083 9101 N40.1 Nocturia 907728067 R35.1 [id number] MD JONES FONTANEZ [facility] [address] [place] [address] 05/19/2023 14:49:48 05/19/2023 16:47:49 Urinary bladder stone 43954615 N21.0 follow upp 2 months , earlier if necessary [id number] CONG VILLASENOR MD SURGERY SCHEDULE [address] [place] [address] 07/01/2023 10:05:11 07/01/2023 10:05:30 [id number] MD JONES FONTANEZ [facility] [address] [place] [phone] 07/08/2023 13:06:58 07/08/2023 14:09:02 Urinary bladder stone 72329217 N21.0 follow upp 2 months , earlier if necessary, he will complete his antibiotic s Increased frequency of urination 188690050 R35.0 as above Health Concerns Section Related Observation LastModified by Organization Detai ls LastModified Time None Recorded Concern Status LastModified by Organization Details LastModified Time None Recorded Advance Directives Directive None Recorded Payers Insurance Date Sequence Insurance Name Policy Number Policy Mullen Covered Member ID Mullen Member ID Guarantor Name 05/19/2023 1 [place] Jorge Villasenor [id number] Jorge Pickering Fernando 09/06/2023 1 [employer] (MEDICARE REPLACEMENT/A DVANTAGE - PPO) Jorge Pickering Fernando [id number] Jorge Pickering Fernando Notes Date Note Type [...] of 9.3. LEYLA SHAH JR, MD [address] [place], [address], [facility] 05/16/2019 14:03:31 06/27/2019 text/html Patient is [...] is somewhat improved. LEYLA SHAH JR, MD [address] [place] [address], [address], [facility] 06/29/2019 08:09:36 05/19/2023 text/html pt with [...] it. HE had a Resume treatment in [place] about 3 years ago[address] I reviewed ct scan disc for [facility] CONG VILLASENOR MD [address] [place] [address] [place], [address], [facility] 05/21/2023 11:32:44 07/08/2023 text/html Patient is [...] had recent cystoscopy. CONG VILLASENOR MD [address] [place], [address], [facility] 07/08/2023 14:34:03
[2025-06-08 13:38] VITALS: BP 124/68; PULSE 67; RESP 18; O2SAT 98
[2025-06-08] MEDS: ERTAPENEM SODIUM 1 GM VIAL IM (13:38)
[2025-06-08 13:43] LABS: Chloride 99 mmol/L (98-107); Potassium 3.9 mmoL/L (3.5-5.1); Sodium 140 mmol/L (136-145)
[2025-06-08 13:46] LABS: Anion Gap 11.9 mEq/L (5-15); Blood Urea Nitrogen 22 mg/dl (9-20); Carbon Dioxide 33 mmol/L (22.0-30.0); Creatinine,Serum 1.00 mg/dl (0.66-1.25); Estimated Glomerular Filt Rate 71 ml/min (>60); GFR (African American) 86 ML/MIN (>60)
[2025-06-08 13:47] LABS: Calcium 8.5 mg/dl (8.4-10.2); Glucose 100 mg/dl (74-100)
== END 2025-06-08 23:59 | disposition home or self-care (01) ==
LOC: INF 13:09
PROVIDERS: PCP Internal Medicine; Visit Provider Internal Medicine
DX: N39.0 Urinary tract infection, site not specified (principal); Z16.12 Extended spectrum beta lactamase (ESBL) resistance
CPT/HCPCS: 80048; 96372; J1335

== ENCOUNTER 2025-06-09 12:53 | Outpatient (CLI) | payer MEDICARE, SELFPAY ==
[2025-06-09] MEDS: ERTAPENEM SODIUM 1 GM VIAL IM (13:13)
[2025-06-09 13:15] VITALS: BP 186/84; PULSE 73; RESP 15; O2SAT 95
== END 2025-06-09 23:59 | disposition home or self-care (01) ==
LOC: INF 12:54
PROVIDERS: PCP Internal Medicine; Visit Provider Internal Medicine
DX: N39.0 Urinary tract infection, site not specified (principal); B96.20 Unspecified Escherichia coli [E. coli] as the cause of diseases classified elsewhere; Z16.12 Extended spectrum beta lactamase (ESBL) resistance
CPT/HCPCS: 96372; J1335

== ENCOUNTER 2025-06-10 13:11 | Outpatient (CLI) | payer MEDICARE, SELFPAY ==
--- OUTSIDE RECORDS SUMMARY | 2025-06-10 13:14 | XMS_ITS | Encounter Summary ---
Author Organization [employer] ([place], [place], [place], [place]) Address [address] [place] [address] Care Team Providers Care Angle Furnaceman Name Role Phone Unavailable Primary Care Provider Unavailabl e Encounter Details Date Type Department Care Team (Late st Contact Info) Description 11/22/2018 Transcribed Document [facility] Medicine [address] [place] [address] ProviderErika MD [address] [place] [address] Social History Tobacco Use Types [...] Source : Measured Height Entry Format : Closplint Height, Feet : 6 ft Height, Inches : 1 Inch Clinical Height : 185.42 cm Amanda Sigala RN - 11/22/2018 6:08 EDT Amanda Sigala RN - 11/22/2018 6:15 EDT documented in this encounter Plan of Treatment Not on file documented as of this encounter Visit Diagnoses Not on filedocumented in this encounter
--- OUTSIDE RECORDS SUMMARY | 2025-06-10 13:14 | XMS_ITS | Encounter Summary ---
Author Organization Info ([place], [place], [place], [place]) Address [address] [place] [address] Care Team Providers Care Graphic Illustrator Name Role Phone Unavailable Primary Care Provider Unavailabl e Encounter Details Date Type Department Care Team (Late st Contact Info) Description 11/22/2018 Transcribed Document [facility] [place] Family Medicine [address] [place] [address] ProviderErika MD [address] [place] [address] Social History Tobacco Use Types [...] EDT by LEONEL GUZMAN Chaplain General Information Sabianist Preference : Latter Day LEONEL GUZMAN Chaplain - 11/24/2018 2:35 EDT Spiritual Assessment Spiritual Assessment Comment/Summary Points : Prov. empathetic engaged listening: Pt. is Latter Day, spouse & son visit pt. regularly, Spouse & Pt. in their late teens. Pt. enjoys reminiscing and story telling, Pt. looking forward to [facility] rehab noting he wants/needs to work [...]
--- OUTSIDE RECORDS SUMMARY | 2025-06-10 13:14 | XMS_ITS | Encounter Summary ---
Author Organization [employer] ([place], [place], [place], [place]) Address [address] [place] [address] Care Team Providers Care Steam Shovel Runner Name Role Phone Unavailable Primary Care Provider Unavailabl e Encounter Details Date Type Department Care Team (Late st Contact Info) Description 11/22/2018 Transcribed Document [facility] [place] Family Medicine [address] [place] [address] ProviderErika MD [address] [place] [address] Social History Tobacco Use [...] On: 11/22/2018 9:23 EDT by JOSSUE RODRÍGUEZ CELLOPHANE BAG MACHINE OPERATOR General Information Visit Type, CELLOPHANE BAG MACHINE OPERATOR : Re-Evaluation Patient Orders : CELLOPHANE BAG MACHINE OPERATOR Fxnl Limitation Documentation x 1 -111 Start: 11/22/18 8:22:14 EDT - SYSTEM, SYSTEM FEES - Start: 11/22/18 8:21:00 EDT, Routine, For Swallow Eval and Treat -111 MARIEL ROBLES PA CELLOPHANE BAG MACHINE OPERATOR Fxnl Limitation Documentation - Start: 11/20/18 9:37:47 EDT, Continuous Order -111 SYSTEM, SYSTEM Speech Language Pathology Additional Tx - Start: 11/20/18 9:36:00 EDT, For Dysphagia, Continuous Order -111 Admission Date : Admission Date/Time: 11/16/18 06:45:00 Medical Chart Reviewed, CELLOPHANE BAG MACHINE OPERATOR : Yes Personal Devices : Personal Devices No Devices Recorded Assistive Devices : Assistive Devices No Devices Recorded Active Diagnoses : 11/17/2018 00:00 Atherosclerotic heart disease of [place] coronary artery without angina pectoris 11/17/2018 00:00 Essential (primary) hypertension 11/17/2018 00:00 Hypothyroidism, unspecified 11/17/2018 00:00 Nonrheumatic aortic (valve) insufficiency 11/17/2018 00:00 Restless legs syndrome 11/17/2018 00:00 Thoracic aortic aneurysm, without rupture 11/17/2018 00:00 Thrombocytopenia, unspecified 11/16/2018 00:00 Atherosclerotic heart disease of [place] coronary artery without angina pectoris 11/16/2018 00:00 Nonrheumatic aortic (valve) insufficiency 11/16/2018 00:00 Thoracic aortic aneurysm, without rupture Therapy Diagnosis, CELLOPHANE BAG MACHINE OPERATOR : normal oral skills, moderate pharyngeal dysphagia Previous Speech/Language Evaluations : N/A Previous Swallow Precautions : Bedside 11/20 recommended instrumental prior to initiating PO diet Previous Cognitive Evaluations : N/A Diet/Intake Prior to Current Admission : Regular/thin Diet/Intake During Current Admission : NPO with TF via Corpak Gag Reflex Intact : Yes Intubation Comment, CELLOPHANE BAG MACHINE OPERATOR : 11/16-11/17 Vital Signs RTF : [...] 9:23 EDT General Status Patient Received Status, CELLOPHANE BAG MACHINE OPERATOR : Long sitting in bed Patient Left Status, CELLOPHANE BAG MACHINE OPERATOR : Long sitting in bed JOSSUE [...] Consistencies Trialed FEES : Thin by straw, [place] by straw, Pureed, Regular solids JOSSUE RODRÍGUEZ SLP - 11/22/2018 9:23 EDT Swallow Impressions Impressions, FEES : Pharyngeal dysphagia JOSSUE RODRÍGUEZ SLP - 11/22/2018 9:23 EDT 8 Point Penetration/Aspiration Grid Thin by Straw : 8 [place] by Straw : 1 Pureed : 1 [...] : Regular Recommended Liquid Diet, SwRec : [place] Feeding Presentation Style, SwRec : No restrictions Swallow Position, SwRec : Upright 90 degrees Supervision Level w/Meals, SwRec : Assist, standby Recommended Med Present, SwRec : Crushed, Whole, With nectar, With puree/pudding, No medications with water Recommended Exam, Sw Rec : FEES Repeat Swallow Exam Timeframe : 3-6 days JOSSUE RODRÍGUEZ SLP - 11/22/2018 9:34 EDT Therapy Indication Assessment CELLOPHANE BAG MACHINE OPERATOR Indicated : Yes CELLOPHANE BAG MACHINE OPERATOR Problem List : Impaired, Swallowing JOSSUE RODRÍGUEZ SLP - 11/22/2018 9:34 EDT Swallow Plan/Goals Treatment Frequency, CELLOPHANE BAG MACHINE OPERATOR : 5 times per wk Treatment Plan Est w/Pt/Caregvr, Swallow : Yes JOSSUE RODRÍGUEZ SLP - 11/22/2018 9:34 EDT Swallow LTG Grid CELLOPHANE BAG MACHINE OPERATOR [facility] Goal #1 CELLOPHANE BAG MACHINE OPERATOR Belt Molder Goal #2 Swallow LTG : Establish safe [...] JOSSUE RODRÍGUEZ SLP - 11/22/2018 9:34 EDT CELLOPHANE BAG MACHINE OPERATOR Education Assessment Grid 1 Aspiration : Needs further teaching Diet Recommendation : Needs further teaching Dysphagia : Needs further teaching Free Water Protocol : Needs further teaching Ice Chips : Needs further teaching Oral Care : Needs further teaching JOSSUE RODRÍGUEZ SLP - 11/22/2018 9:34 EDT CELLOPHANE BAG MACHINE OPERATOR Education Assessment Grid 2 Speech Language Pathology Treatment Plan : Needs further teaching JOSSUE RODRÍGUEZ SLP - 11/22/2018 9:[address] [facility] CELLOPHANE BAG MACHINE OPERATOR Charges FEES : 1 JOSSUE RODRÍGUEZ SLP - 11/22/2018 9:34 EDT Electronically signed by Christina Saini Conversion Respiratory Therapy Director Cerner at 12/08/2022 12:37 PM CDT documented in this encounter Plan of Treatment Not on file documented as of this encounter Visit Diagnoses Not on filedocumented in this encounter
--- OUTSIDE RECORDS SUMMARY | 2025-06-10 13:15 | XMS_ITS | Encounter Summary ---
Author Organization [employer] ([place], [place], [place], [place]) Address [address] [place] [address] Care Team Providers Care It Help Desk Analyst Name Role Phone Unavailable Primary Care Provider Unavailabl e Encounter Details Date Type Department Care Team (Late st Contact Info) Description 11/21/2018 Transcribed Document [facility] [place] Medicine [address] [place] [address] ProviderErika MD [address] [place] [address] Social History Tobacco Use Types Packs/Day Years Used Date Smoking Tobacco: Never Assessed Sex and Gender Information Value Date Recorded Sex Assigned at Not on file Legal Sex Male 5:03 PM CDT Gender Identity Not on file Sexual Orientation Not on file documented as of this encounter Miscellaneous Notes * Cerner Conversion Note - Historical ProviderMD - 11/21/2018 2:00 AM CDT Phys Assistant Details Entered On: 11/21/2018 1:40 EDT Performed [...]
--- OUTSIDE RECORDS SUMMARY | 2025-06-10 13:15 | XMS_ITS | Encounter Summary ---
Author Organization [employer] ([place], [place], [place], [place]) Address [address] [place] [address] Care Team Providers Care Brand Executive Name Role Phone Unavailable Primary Care Provider Unavailabl e Encounter Details Date Type Department Care Team (Late st Contact Info) Description 11/17/2018 Transcribed Document [facility] [place] [address] [place] [address] ProviderErika MD [address] [place] [address] Social History Tobacco Use Types [...] On: 11/17/2018 11:22 EDT by ODALYS FAULKNER Rn-Lavender Farm WorkerForestry Supervisor Note Documentation Status Complete : Yes ODALYS FAULKNER Rn-Lavender Farm Worker - 11/17/2018 11:22 EDT Patient History Information [...] when pt is awake. CF ODALYS FAULKNER, Rn-Lavender Farm Worker - 11/17/2018 11:22 EDT documented in this encounter Plan of Treatment Not on file documented as of this encounter Visit Diagnoses Not on filedocumented in this encounter
--- OUTSIDE RECORDS SUMMARY | 2025-06-10 13:15 | XMS_ITS | Encounter Summary ---
Author Organization [employer] ([place], [place], [place], [place]) Address [address] [place] [address] Care Team Providers Care Hop Grower Name Role Phone Unavailable Primary Care Provider Unavailabl e Encounter Details Date Type Department Care Team (Late st Contact Info) Description 11/17/2018 Transcribed Document [facility] Cardiology [address] [place] [address] Lc Armendariz MD [address] [facility] [address] [place] [address] Social History Tobacco Use Types [...] MD-CAR Basic Information PCP: Sanjuana Espino MD Director Radiation Oncology: Porfirio Combs MD Chief Complaint s/p bioprosthetic [...] list: All Problems Aneurysm, thoracic aortic / 7722699504 / Confirmed Aortic valve insufficiency / 634047733 / Confirmed Arthritis / 8486775 / Confirmed At risk for sleep apnea / 18156085 / Confirmed CAD (coronary artery disease) / 12228346 / Confirmed Disorder of prostate ( enlarged) / 68099427 / Confirmed HTN - Hypertension / 3556955719 / Confirmed Hypothyroidism / 13117720 / Confirmed Frequent urination / 600090281 / Confirmed Cancer of skin of face / 1206914181 / Confirmed Nocturia / 937370465 / Confirmed Restless legs syndrome / 37193539 / Confirmed Prostate stricture / 18836401 / Confirmed Resolved: Bladder stone / 999656867 Canceled: Aneurysm / 1678377037 Canceled: Thyroid disease / 159567440 Histories No education data available. Social & Psychosocial Habits Alcohol 04/16/2017 Alcohol Use History, Social Habits No Alcohol Use in Last Twelve Months No Home/Environment 11/15/2018 Lives with: Spouse Living situation: Home/Independent Substance Abuse 04/16/2017 Recreational Drug Use History No Recreational Drug Use Last 12 Months No Tobacco 04/16/2017 Smoking Status Never smoker Past Medical History: Active HTN - Hypertension (0271746226) Hypothyroidism (55161374) Family History: Entire family history is negative. [...] No tenderness, No swelling. Integumentary: Warm, Dry, [place]. Neurologic: Not alert, Not oriented. Psychiatric: not [...] 11/17/2018 05:17 Radiology Results (Last 48 hours) [id number] -- 11/16/2018 06:45 CR Chest 2 Vws [...] Anasogastric tube extends below the diaphragm. Left-sided [place]-Ganzcatheter tip is in the left main pulmonary [...] day.FINDINGS: The heart is normal in size. [place]-Jovanna catheter tips in theleft pulmonary artery. There [...]
--- OUTSIDE RECORDS SUMMARY | 2025-06-10 13:15 | XMS_ITS | Encounter Summary ---
Author Organization [employer] ([place], [place], [place], [place]) Address [address] [place] [address] Care Team Providers Care Focusing Machine Operator Name Role Phone Unavailable Primary Care Provider Unavailabl e Encounter Details Date Type Department Care Team (Late st Contact Info) Description 11/17/2018 Transcribed Document [facility] [place] [address] [place] [address] ProviderErika MD [address] [place] [address] Social History Tobacco Use [...] Historical ProviderMD - 11/17/2018 2:00 AM CDT Rough Patcher Details Entered On: 11/17/2018 7:39 EDT Performed [...]
--- OUTSIDE RECORDS SUMMARY | 2025-06-10 13:15 | XMS_ITS | Encounter Summary ---
Author Organization [employer] ([place], [place], [place], [place]) Address [address] [place] [address] Care Team Providers Care Automotive Mechanic Name Role Phone Unavailable Primary Care Provider Unavailabl e Encounter Details Date Type Department Care Team (Late st Contact Info) Description 11/22/2018 Transcribed Document [facility] [place] [address] [place] [address] ProviderErika MD [address] [place] [address] Social History Tobacco Use Types [...] On: 11/22/2018 13:55 EDT by ODALYS FAULKNER Rn-Fisher NetTrial Consultant Note Care Management Note : 11/22/18 Pt has had a cva. Spoke to his Connie and son Sumeet at the bedside. Pt is lfacid on the left side. Discussed the need for STR and they decided on [facility]. Sent pt info via [facility] to [facility]. CF Documentation Status Complete : Yes ODALYS FAULKNER Rn-Fisher Net - 11/22/2018 13:55 EDT Patient History Emergency Contact #1 : Connie Emergency Contact #1 (H) Emergency Contact #1 Relationship : Emergency Contact #2 : Sheridan Fernando Emergency Contact #2 (C) Emergency Contact #2 Relationship : daughter Living Situation : Home Patient Lives With : Spouse Current Home Treatments : None Patient History Note Report : ODALYS FAULKNER Rn-Fisher Net - 11/17/18 11:25:13 11/17/18 Pt sleeping and [...] when pt is awake. CF ODALYS FAULKNER Rn-Fisher Net - 11/22/2018 13:55 EDT Electronically signed by [facility], [facility] Conversion Lottery Clerk Cerner at 12/08/2022 12:32 PM CDT documented in this encounter Plan of Treatment Not on file documented as of this encounter Visit Diagnoses Not on filedocumented in this encounter
--- OUTSIDE RECORDS SUMMARY | 2025-06-10 13:15 | XMS_ITS | Encounter Summary ---
Author Organization [employer] ([place], [place], [place], [place]) Address [address] [place] [address] Care Team Providers Care Overhead Crane Inspector Name Role Phone Unavailable Primary Care Provider Unavailabl e Encounter Details Date Type Department Care Team (Late st Contact Info) Description 11/21/2018 Transcribed Document [facility] [place] Family Medicine [address] [place] [address] ProviderErika MD [address] [place] [...] Source : Measured Height Entry Format : [place]a Height, Feet : 6 ft Height, Inches [...]
--- OUTSIDE RECORDS SUMMARY | 2025-06-10 13:15 | XMS_ITS | Encounter Summary ---
Author Organization [employer] ([place], [place], [place], [place]) Address [address] [place] [address] Care Team Providers Care Eeg Technologist Name Role Phone Unavailable Primary Care Provider Unavailabl e Encounter Details Date Type Department Care Team (Late st Contact Info) Description 11/21/2018 Transcribed Document [facility] [place] [address] [place] [address] ProviderErika MD [address] [place], [place] [id number] Social History Tobacco Use Types Packs/Day Years [...] Bedtime, Routine HEENT saliva substitutes - 1 [place], Buccal, Liquid, Q2H, PRN for Other (See [...] Radiology results Radiology Results (Last 48 hours) [id number] -- 11/16/2018 06:45 CR Chest 1 Vw Portable (11/20/2018 04:12) Result: PORTABLE CHEST 11/20/2018 4:00 AMHISTORY: Shortness of breathCOMPARISON: 1 day priorFINDINGS: A [place]-Jovanna catheter tip terminates in the SVC. The [place]-Ganzcatheter has been retracted. The cardiac silhouette is [...]
--- OUTSIDE RECORDS SUMMARY | 2025-06-10 13:15 | XMS_ITS | Encounter Summary ---
Author Organization [employer] ([place], [place], [place], [place]) Address [address] [place] [address] Care Team Providers Care Product Safety Head Name Role Phone Unavailable Primary Care Provider Unavailabl e Encounter Details Date Type Department Care Team (Late st Contact Info) Description 11/17/2018 Transcribed Document [facility] [place] Family Medicine [address] [place] [address] ProviderErika MD [address] [place] [address] Social History Tobacco Use Types [...] Performed On: 11/17/2018 5:00 EDT by Alpesh Barrzaa RN Height and Weight, Routine Routine Weight Source : Bed scale Routine Weight Entry Format : Metric Routine Weight, Kilograms : 81.6 kg(Converted to: 179 lb 14 oz) Routine Weight Calculation : 81.6 kg Height Source : Measured Height Entry Format : [place] Height, Feet : 6 ft Height, Inches [...]
--- OUTSIDE RECORDS SUMMARY | 2025-06-10 13:16 | XMS_ITS | Encounter Summary ---
Author Organization [employer] ([place], [place], [place], [place]) Address [address] [place] [address] Care Team Providers Care Ironer Sock Name Role Phone Unavailable Primary Care Provider Unavailabl e Encounter Details Date Type Department Care Team (Late st Contact Info) Description 11/22/2018 Transcribed Document [facility] [place] Family Medicine [address] [place] [address] ProviderErika MD [address] [place] [address] Social History Tobacco Use Types Packs/Day Years Used Date Smoking Tobacco: Never Assessed Sex and Gender Information Value Date Recorded Sex Assigned at Not on file Legal Sex Male 5:03 PM CDT Gender Identity Not on file Sexual Orientation Not on file documented as of this encounter Miscellaneous Notes * [employer]ner Conversion Note - Historical ProviderMD - 11/22/2018 12:18 PM CDT SYSTEMS ANALYST DEVELOPER Attempt to Treat Entered On: 11/22/2018 12:20 EDT Performed On: 11/22/2018 12:18 EDT by JOSSUE RODRÍGUEZ SLP Attempt to Treat Inability to Treat Comment : New orders received from Neurologist. ST is currently following pt for dysphagia. Will await neuro dx for full communication JOSSUE Mccarthy, SYSTEMS ANALYST DEVELOPER - 11/22/2018 12:18 EDT documented in this encounter Plan of Treatment Not on file documented as of this encounter Visit Diagnoses Not on filedocumented in this encounter
--- OUTSIDE RECORDS SUMMARY | 2025-06-10 13:16 | XMS_ITS | Encounter Summary ---
Author Organization [employer] ([place], [place], [place], [place]) Address [address] [place] [address] Care Team Providers Care Real Estate Investment Analyst Name Role Phone Unavailable Primary Care Provider Unavailabl e Encounter Details Date Type Department Care Team (Late st Contact Info) Description 11/22/2018 Transcribed Document [facility] [place] [address] [place] [address] ProviderErika MD [address] [place], [place] [id number] Social History Tobacco Use Types Packs/Day Years Used Date Smoking Tobacco: Never Assessed Sex and Gender Information Value Date Recorded Sex Assigned at Not on file Legal Sex Male 5:03 PM CDT Gender Identity Not on file Sexual Orientation Not on file documented as of this encounter Miscellaneous Notes * Cerner Conversion Note - Historical ProviderMD - 11/22/2018 2:00 AM CDT Pluck Trimmer Details Entered On: 11/22/2018 6:09 EDT Performed [...]
--- OUTSIDE RECORDS SUMMARY | 2025-06-10 13:16 | XMS_ITS | Encounter Summary ---
Author Organization [employer] ([place], [place], [place], [place]) Address [address] [place] [address] Care Team Providers Care Locomotive Oiler Name Role Phone Unavailable Primary Care Provider Unavailabl e Encounter Details Date Type Department Care Team (Late st Contact Info) Description 11/29/2018 Transcribed Document [facility] [place] Family Medicine [address] [place] [address] ProviderErika MD [address] [place] [address] Social History Tobacco Use Types Packs/Day Years Used Date Smoking Tobacco: Never Assessed Sex and Gender Information Value Date Recorded Sex Assigned at Not on file Legal Sex Male 5:03 PM CDT Gender Identity Not on file Sexual Orientation Not on file documented as of this encounter Miscellaneous Notes * Cerner Conversion Note - Erika ProviderMD - 11/29/2018 2:51 PM CDT [facility] Endo IntraOp Summary Primary Physician: RIGOBERTO YU MD Finalized Date/Time: 11/29/18 15:07:06 Pt. Name: DOTTIE VILLASENOR /Sex: 1940 Male Med Rec #: [id number] Physician: JULIO CESAR CARVALHO MD-[facility] Financial #: [id number] Pt. Type: I Room/Bed: [facility]/ Admit/Disch: 11/16/18 06:45:00 - Institution: [facility] Endo - Case Attendance Entry 1 Entry 2 Entry 3 Case Attendee RIGOBERTO YU MD Reynolds, Ashley N, RN JONNATHAN LUBIN Role Performed Surgeon/Proceduralist, Health Services Manager, First Scrub, First First Time In 11/29/18 [...] Patino Crna CORNEA, MIHAELA, MD Role Performed REELER OPERATOR/Nurse Javascript Ui Developer Anesthesiologist of Record Time In 11/29/18 14:47:00 11/29/18 14:47:00 Time Out 11/29/18 15:09:00 11/29/18 15:09:00 Procedure EGD w Control Bleeding EGD w Control Bleeding Other Attendee Superficial Wound Closed By: Last Modified By: Gem Parekh RN Reynolds, Ashley N, RN 11/29/18 15:06:55 11/29/18 15:06:55 [facility] Endo - Case Attendance Audit 11/29/18 15:06:55 Deicer Finisher: [email or web address] Modifier: [email or web address] 1 <+> Time Out 1 <*> Procedure EGD w Control Bleeding 2 <+> Time Out 2 <*> Procedure EGD w Control Bleeding 3 <+> Time Out 3 <*> Procedure EGD w Control Bleeding 4 <+> Time Out 4 <*> Procedure EGD w Control Bleeding 5 <+> Time Out 5 <*> Procedure EGD w Control Bleeding 11/29/18 14:59:16 Deicer Finisher: [email or web address] Modifier: [email or web address] <+> 1 Procedure <+> 2 Procedure <+> 3 Procedure <+> 4 Procedure <+> 5 Procedure 11/29/18 14:59:14 Deicer Finisher: [email or web address] Modifier: [email or web address] 1 <-> Procedure Esophagogastroduodenoscopy 2 <-> Procedure Esophagogastroduodenoscopy 3 <-> Procedure Esophagogastroduodenoscopy 4 <-> Procedure Esophagogastroduodenoscopy 5 <-> Procedure Esophagogastroduodenoscopy 11/29/18 14:49:19 Deicer Finisher: [email or web address] Modifier: [email or web address] 1 <*> Procedure Esophagogastroduodenoscopy 2 <+> Time In 2 <*> Procedure Esophagogastroduodenoscopy 3 <+> Time In 3 <*> Procedure Esophagogastroduodenoscopy 4 <+> Time In 4 <*> Procedure Esophagogastroduodenoscopy 5 <+> Time In 5 <*> Procedure Esophagogastroduodenoscopy 11/29/18 14:48:29 Deicer Finisher: [email or web address] Modifier: [email or web address] 1 <+> Time In 1 <*> Procedure Esophagogastroduodenoscopy <+> 2 Case Attendee <+> 2 Role Performed <+> 2 Procedure <+> 3 Case Attendee <+> 3 Role Performed <+> 3 Procedure <+> 4 Case Attendee <+> 4 Role Performed <+> 4 Procedure <+> 5 Case Attendee <+> 5 Role Performed <+> 5 Procedure [facility] Endo - Case times Entry 1 Patient In Room Time 11/29/18 14:47:00 Out Room Time 11/29/18 15:09:00 Anesthesia Start Time 11/29/18 14:47:00 Stop Time 11/29/18 15:09:00 Surgery / Procedure Times Start Time 11/29/18 14:51:00 Stop Time 11/29/18 15:06:00 Last Modified By: Gem Parekh RN 11/29/18 15:06:53 [facility] Endo - Case times Audit 11/29/18 15:06:53 Deicer Finisher: [email or web address] Modifier: [email or web address] <+> 1 Out Room Time <+> 1 Stop Time <+> 1 Stop Time 11/29/18 14:51:51 Deicer Finisher: [email or web address] Modifier: [email or web address] <+> 1 Start Time [facility] Endo - Delays Entry 1 Delay Reason Other Duration 0 Minute(s) Last Modified By: Gem Parekh RN 11/29/18 14:48:33 [facility] Endo - Departure from OR Entry 1 Integumentary Assessment Integumentary WDL Assessment WDL Transfer/Handoff Transfer to PACU Phase I Handoff Method Bedside/Face to face Post-op Transport Stretcher/Gurney Via Patient Transport Gem Parekh RN, Accompanied by Cassie Patino Crna Last Modified By: Gem Parekh RN 11/29/18 14:48:36 [facility] Endo - Endoscopy Details Entry 1 Abdomen Procedure Soft, Non-Tender Assessment Procedure Abdomen 11/29/18 14:47:00 Assessment D/T Radio Frequency Ablation Last Modified By: Gem Parekh RN 11/29/18 14:48:41 [facility] Endo - Fire Risk Assessment Entry [...] Modified By: Gem Parekh RN 11/29/18 14:48:48 [facility] Endo - General Case Civil Engineer In Training 1 Case Information OR Endo 01 [facility] Case Level 1 Room Verified Yes Wound Class II - Clean-Contaminated Specialty SN Gastroenterology Anesthesia Type MAC ASA Class 4 Diagnosis Preop Diagnosis GI Bleed Postop Same As Preop Yes Postop Diagnosis GI Bleed Last Modified By: Gem Parekh RN 11/29/18 14:48:58 [facility] Endo - Implant Log Entry 1 Entry 2 Type Implant (Synthetic) Implant (Synthetic) Implant Log Implant Type Tissue Implant Type Implant CLIP II RESOLUTION CLIP II RESOLUTION Identification [id number] Description Implant Quantity 1 1 Implant Site Implant Identification Model Number Implant Identification Serial Number Implant [id number] Identification Lot Number Implant Ute Sci:Interv Ute Sci:Interv Identification Cardiology Cardiology Head Of Marketing Analytics Name: Implant [id number] Identification Catalog Number Implant Size Implant Has an Yes Yes Expiration Date Implant Expiration 09/05/21 07/10/21 Date Wasted Radioactive Material Time Implanted Tissue Implant Continue for Tissue Implant Documentation Tissue Identification Number Graft Prep Per Head Of Marketing Analytics Instructions: Tissue Preparation Method: Reconstitution Solution: Reconstitution Solution Lot Number Reconstitution Solution Expiration Date: Thawing Solution Thawing Solution Lot Number Thawing Solution Expiration Date Preparation Materials, Other Preparation Materials, Other Lot Number Preparation Materials, Other Expiration Date Tissue Prepared/Processed By Head Of Marketing Analytics Paperwork Completed Implant Type Comment clip failed Last Modified By: Gem Parekh RN Reynolds, Ashley N, RN 11/29/18 15:00:27 11/29/18 15:06:45 [facility] Endo - Implant Log Audit 11/29/18 15:06:45 Deicer Finisher: GARY Modifier: [email or web address] 2 <*> Implant Identification Description CLIP II RESOLUTION [id number] <+> Implant Type Comment 11/29/18 15:04:27 Deicer Finisher: [email or web address] Modifier: [email or web address] <+> 2 Implant Identification Description <+> 2 Implant Identification Lot Number <+> 2 Implant Identification Head Of Marketing Analytics Name: <+> 2 Implant Expiration Date <+> 2 Implant Quantity <+> 2 Implant Identification Catalog Number <+> 2 Implant Has an Expiration Date <+> 2 Type [facility] Endo - Intraoperative Assessment Entry 1 Valid History / Yes Physical in Chart Preoperative Yes Checklist Reviewed/Evaluated Patient is Latex No Sensitive Level of WDL Consciousness (WDL = Alert, Oriented to Person, Place, and Time) Last Modified By: Gem Parekh RN 11/29/18 14:49:01 [facility] Endo - Intraoperative Equipment Entry 1 [...] Ashley N, RN 11/29/18 14:49:07 11/29/18 14:56:48 [facility] Endo - Intraoperative Equipment Audit 11/29/18 14:56:48 Deicer Finisher: [email or web address] Modifier: [email or web address] <+> 2 Photo <+> 2 Video <+> 2 Electrocardiogram (ECG) Electrode Placement <+> 2 Blood Pressure Location <+> 2 Pulse Oximeter Probe Site <+> 2 Flexible Endoscopes Used <+> 2 Scope Serial Number/Identification Number <+> 2 Type [facility] Endo - Patient Positioning Entry 1 [...] Modified By: Gem Parekh RN 11/29/18 14:59:16 [facility] Endo - Patient Positioning Audit 11/29/18 14:59:16 Deicer Finisher: [email or web address] Modifier: [email or web address] <+> 1 Procedure 11/29/18 14:59:14 Deicer Finisher: [email or web address] Modifier: [email or web address] 1 <-> Procedure Esophagogastroduodenoscopy [facility] Endo - Sign In Entry 1 Patient, Site, Yes Procedure Identified Surgical Consent Yes Confirmed Surgical Site N/A Marked by person performing procedure Airway Hypothermia Risk No Warming Measures No Taken Last Modified By: Gem Parekh RN 11/29/18 14:49:18 [facility] Endo - Sign Out Entry 1 [...] Modified By: Gem Parekh RN 11/29/18 15:07:01 [facility] Endo - Surgical Procedures Entry 1 Procedure EGD w Control Bleeding Primary Procedure Yes Primary Surgeon RIGOBERTO YU MD Start 11/29/18 14:51:00 Stop 11/29/18 15:06:00 Anesthesia Type MAC Specialty SN Gastroenterology Wound Class II - Clean-Contaminated Last Modified By: Gem Parekh RN 11/29/18 15:07:04 [facility] Endo - Surgical Procedures Audit 11/29/18 15:07:04 Deicer Finisher: [email or web address] Modifier: [email or web address] <+> 1 Stop 11/29/18 14:59:15 Deicer Finisher: [email or web address] Modifier: [email or web address] 1 <*> Procedure Esophagogastroduodenoscopy 1 <+> Start 11/29/18 14:49:23 Deicer Finisher: [email or web address] Modifier: [email or web address] 1 <*> Procedure Esophagogastroduodenoscopy 1 <+> Specialty [facility] Endo - Time Out Entry 1 [...] Modified By: Gem Parekh RN 11/29/18 14:59:17 [facility] Endo - Time Out Audit 11/29/18 14:59:17 Deicer Finisher: [email or web address] Modifier: [email or web address] <+> 1 Procedure to be Performed 11/29/18 14:59:15 Deicer Finisher: [email or web address] Modifier: [email or web address] 1 <-> Procedure to be Performed Esophagogastroduodenoscopy Case Comments <None> Finalized By: Gem Parekh RN Document Signatures Signed By: Gem Parekh RN 11/29/18 15:07 Electronically signed by Parveen [facility] Conversion Relations Director Cerner at 12/08/2022 12:33 PM CDT documented in this encounter Plan of Treatment Not on file documented as of this encounter Visit Diagnoses Not on filedocumented in this encounter
--- OUTSIDE RECORDS SUMMARY | 2025-06-10 13:16 | XMS_ITS | Encounter Summary ---
Author Organization [employer] ([place], [place], [place], [place]) Address [address] [place] [address] Care Team Providers Care Network Operations Lead Name Role Phone Unavailable Primary Care Provider Unavailabl e Encounter Details Date Type Department Care Team (Late st Contact Info) Description 11/22/2018 Transcribed Document [facility] [place] [address] [place] [address] ProviderErika MD [address] [place], [place] [id number] Social History Tobacco Use Types Packs/Day Years [...] 1940 Associated Diagnoses: CAD (coronary artery disease), [place] coronary artery; Thrombocytopenia; Coronary artery disease; HTN [...] S1, S2, No edema. Integumentary: Warm, Dry, [place], incision is C/D/I. Neurologic: Alert, left sided [...] Prophylaxis: SCDs Diagnosis CAD (coronary artery disease), [place] coronary artery - Admitting, Medical. Thrombocytopenia - Working, Medical. Coronary artery disease - Discharge, Medical. HTN (hypertension) - Pre-Op Diagnosis, Medical. Hypothyroidism - Pre-Op Diagnosis, Medical. Aortic insufficiency - Admitting, Medical. Aortic insufficiency - Discharge, Medical. RLS (restless legs syndrome) - Pre-Op Diagnosis, Medical. Thoracic ascending aortic aneurysm - Admitting, Medical. Thoracic ascending aortic aneurysm - Discharge, Medical. Electronically signed by Parveen, [facility] Conversion Contact Lens Flashing Puncher Cerner at 12/08/2022 12:25 PM CDT documented in this encounter Plan of Treatment Not on file documented as of this encounter Visit Diagnoses Not on filedocumented in this encounter
--- OUTSIDE RECORDS SUMMARY | 2025-06-10 13:16 | XMS_ITS | Encounter Summary ---
Author Organization [employer] ([place], [place], [place], [place]) Address [address] [place] [address] Care Team Providers Care Slunk Skinner Name Role Phone Unavailable Primary Care Provider Unavailabl e Encounter Details Date Type Department Care Team (Late st Contact Info) Description 11/22/2018 Transcribed Document [facility] [place] [address] [place] [address] ProviderErika MD [address] [place], [...] at goal rate. Did have BM yesterday. CERTIFIED MORTICIAN okayed pt for po diet this am- follow up after breakfast and pt had eating 50% of meal. Pt stated he would enjoy ensure as well. Spoke with RN about observing 1-2 more meals before removing corpak and speaking with MD as well. 11/18: Check on: Pt is on Osmolite 1.5 @ 50m/hr + 1 [id number] daily advancing toward goal of 60ml/hr + 1 [id number] daily. No CERTIFIED MORTICIAN consult noted, discussed if any concern for [...] Support: Jevity 1.5 @ 60ml/hr + 1 [id number] daily, HT: 185cm (6'1) ADMIT WT: 79kg/174# Current Wt: 81.6kg (11/17), 82.4kg (11/18) , 84.3 kg (11/22) BMI: 23 IBW: 79kg/100% EST NEEDS: 6191-9516 kcal (25-30kcal/kg), 95g pro (1.2g/kg) DAVION GREEN [...] 12:04 EDT Electronically signed by Parveen, [facility] Conversion Betting Agency Manager Cerner at 12/08/2022 12:11 PM CDT documented in this encounter Plan of Treatment Not on file documented as of this encounter Visit Diagnoses Not on filedocumented in this encounter
--- OUTSIDE RECORDS SUMMARY | 2025-06-10 13:16 | XMS_ITS | Encounter Summary ---
Author Organization [employer] ([place], [place], [place], [place]) Address [address] [place] [address] Care Team Providers Care Stone Paver Name Role Phone Unavailable Primary Care Provider Unavailabl e Encounter Details Date Type Department Care Team (Late st Contact Info) Description 11/22/2018 Transcribed Document [facility] [place] [address] [place] [address] ProviderErika MD [address] [place] [address] Social History Tobacco Use Types [...] unspecified 11/17/2018 00:00 Atherosclerotic heart disease of [place] coronary artery without angina pectoris 11/17/2018 00:00 Essential (primary) hypertension 11/17/2018 00:00 Hypothyroidism, unspecified 11/17/2018 00:00 Nonrheumatic aortic (valve) insufficiency 11/17/2018 00:00 Restless legs syndrome 11/17/2018 00:00 Thoracic aortic aneurysm, without rupture 11/17/2018 00:00 Thrombocytopenia, unspecified 11/16/2018 00:00 Atherosclerotic heart disease of [place] coronary artery without angina pectoris 11/16/2018 [...] TARI MOORE OTR/L 11/23/2018 15:10 EDT Hand Higher Education Administrator Test : trace with digits TARI MOORE [...] TARI MOORE OTR/Ginny - 11/23/2018 15:10 EDT Long-Term Goals, OT Self Feeding LTG [...]
--- OUTSIDE RECORDS SUMMARY | 2025-06-10 13:16 | XMS_ITS | Encounter Summary ---
Author Organization [employer] ([place], [place], [place], [place]) Address [address] [place] [address] Care Team Providers Care Gas Or Petroleum Operator Name Role Phone Unavailable Primary Care Provider Unavailabl e Encounter Details Date Type Department Care Team (Late st Contact Info) Description 11/29/2018 Transcribed Document [facility] [place] [facility] [place] [address] ProviderErika MD [address] [place], [place] [phone] Social History Tobacco Use Types Packs/Day Years [...]
--- OUTSIDE RECORDS SUMMARY | 2025-06-10 13:16 | XMS_ITS | Encounter Summary ---
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 Respiratory Assessment Comment : Nasal cannula MAMTA SOLO, ERIC - 11/23/2018 14:12 EDT Visit Type, FILAMENT CUTTER : Initial evaluation Patient Orders : Speech Language Pathology Evaluation and Treatment -111 Start: 11/22/18 11:18:00 EDT, Routine, For Speech Language Cognitive Eval and Treat - JAY JAY CRESPO MD-DIANE FILAMENT CUTTER Fxnl Limitation Documentation - Start: 11/20/18 9:37:47 EDT, Continuous Order -111 SYSTEM, SYSTEM Speech Language Pathology Additional Tx - Start: 11/20/18 9:36:00 EDT, For Dysphagia, Continuous Order -111 Admission Date : Admission Date/Time: 11/16/18 06:45:00 Medical Chart Reviewed, FILAMENT CUTTER : Yes Personal Devices : Personal Devices No Devices Recorded Assistive Devices : Assistive Devices No Devices Recorded Active Diagnoses : 11/23/2018 00:00 Cerebral infarction, unspecified 11/17/2018 00:00 Atherosclerotic heart disease of [place] coronary artery without angina pectoris 11/17/2018 00:00 Essential (primary) hypertension 11/17/2018 00:00 Hypothyroidism, unspecified 11/17/2018 00:00 Nonrheumatic aortic (valve) insufficiency 11/17/2018 00:00 Restless legs syndrome 11/17/2018 00:00 Thoracic aortic aneurysm, without rupture 11/17/2018 00:00 Thrombocytopenia, unspecified 11/16/2018 00:00 Atherosclerotic heart disease of [place] coronary artery without angina pectoris 11/16/2018 00:00 [...] Gag Reflex Intact : Yes Intubation Comment, FILAMENT CUTTER : 11/16-11/17 Vital Signs RTF : Vitals [...] 13:41 EDT General Status Patient Received Status, FILAMENT CUTTER : Supine in bed Patient Left Status, FILAMENT CUTTER : Supine in bed MAMTA SOLO SLP [...] Oral Mechanism for Daily Living : Intact FILAMENT CUTTER Cough : Weak MAMTA SOLO SLP - [...] 14:12 EDT Evaluation Methods Types of Evaluation, FILAMENT CUTTER : Informal MAMTA SOLO SLP - 11/23/2018 [...] - 11/23/2018 14:12 EDT Therapy Indication Assessment FILAMENT CUTTER Indicated : Yes FILAMENT CUTTER Interdisciplinary Consultation Needs : No FILAMENT CUTTER Problem List : Impaired, Spoken Language Comprehension, Impaired, Spoken Language Expression MAMTA SOLO SLP - 11/23/2018 14:12 EDT LTG Lang/Comm/Cog LTG FILAMENT CUTTER Lime Hide Inspector Goal 1 Lime Hide Inspector Goal 2 Goals : Improved spoken language [...] MAMTA SOLO SLP - 11/23/2018 14:12 EDT FILAMENT CUTTER Education Assessment Grid 1 Evaluation Results : Verbalizes understanding MAMTA SOLO SLP - 11/23/2018 14:12 EDT FILAMENT CUTTER Education Assessment Grid 2 Treatment Plan : Verbalizes understanding MAMTA SOLO SLP - 11/23/2018 14:[address] [facility] Charges Evaluation of Speech Production & Language : 1 MAMTA SOLO SLP - 11/23/2018 14:12 EDT Anticipated Discharge Needs, FILAMENT CUTTER Anticipated Discharge to OT : Rehab, high intensity Recommend Continued Therapy at Discharge : Yes MAMTA SOLO SLP - 11/23/2018 14:12 EDT documented in this encounter Plan of Treatment Not on file documented as of this encounter Visit Diagnoses Not on filedocumented in this encounter
--- OUTSIDE RECORDS SUMMARY | 2025-06-10 13:16 | XMS_ITS | Encounter Summary ---
Author Organization [employer] ([place], [place], [place], [place]) Address [address] [place] [address] Care Team Providers Care Environmental Manager Name Role Phone Unavailable Primary Care Provider Unavailabl e Encounter Details Date Type Department Care Team (Late st Contact Info) Description 11/22/2018 Transcribed Document [facility] [place] [address] [place] [address] ProviderErika MD [address], [place] [phone] Social History Tobacco Use Types Packs/Day Years [...] Tab, Oral, At Bedtime saliva substitutes, 1 Supply, Buccal, Q2H, PRN Senokot, 17.2 mg= 2 [...]
--- OUTSIDE RECORDS SUMMARY | 2025-06-10 13:16 | XMS_ITS | Encounter Summary ---
Author Organization [employer] ([place], [place], [place], [place]) Address [address] [place] [address] Care Team Providers Care Silviculture Teacher Name Role Phone Unavailable Primary Care Provider Unavailabl e Encounter Details Date Type Department Care Team (Late st Contact Info) Description 11/22/2018 Transcribed Document [facility] [place] [address] [place] [address] ProviderErika MD [address] [place] [address] Social History Tobacco Use Types [...] Source : Measured Height Entry Format : [place] Height, Feet : 6 ft Height, Inches [...]
--- OUTSIDE RECORDS SUMMARY | 2025-06-10 13:16 | XMS_ITS | Encounter Summary ---
Author Organization [employer] ([place], [place], [place], [place]) Address [address] [place] [address] Care Team Providers Care Drill Doctor Name Role Phone Unavailable Primary Care Provider Unavailabl e Encounter Details Date Type Department Care Team (Late st Contact Info) Description 11/21/2018 Transcribed Document [facility] [place] [address] [place] [address] ProviderErika MD [address] [place] [address] Social History Tobacco Use Types [...] MRI to confirm. -continue asa, statin -Continue PT/OT/TANNING SALON ATTENDANT -control blood pressure, aim for whatever is [...] Tab, Oral, At Bedtime saliva substitutes, 1 [place], Buccal, Q2H, PRN Senokot, 17.2 mg= 2 [...]
--- OUTSIDE RECORDS SUMMARY | 2025-06-10 13:16 | XMS_ITS | Encounter Summary ---
Author Organization [employer] ([place], [place], [place], [place]) Address [address] [place] [address] Care Team Providers Care Burglar Alarm Mechanic Name Role Phone Unavailable Primary Care Provider Unavailabl e Encounter Details Date Type Department Care Team (Late st Contact Info) Description 11/22/2018 Transcribed Document [facility] [place] [address] [place] [address] ProviderErika MD [address] [place] [address] Social History Tobacco Use Types [...] EDT Electronically signed by Christina Saini Conversion Photolettering Machine Operator Cerner at 12/08/2022 12:18 PM CDT documented in this encounter Plan of Treatment Not on file documented as of this encounter Visit Diagnoses Not on filedocumented in this encounter
--- OUTSIDE RECORDS SUMMARY | 2025-06-10 13:16 | XMS_ITS | Encounter Summary ---
Author Organization [email or web address] ([place], [place], [place], [place]) Address [address] [place] [address] Care Team Providers Care Glaze Carrier Name Role Phone Unavailable Primary Care Provider Unavailabl e Encounter Details Date Type Department Care Team (Late st Contact Info) Description 11/22/2018 Transcribed Document [facility] [place] [address] [place] [address] ProviderErika MD [address] [place] [address] Social History Tobacco Use Types [...] Services : Outpt Cardiac Rehab [facility] [phone] F [phone] They will call pt w/ appt time. SUZANNA HAINES, Manager Plumbing - 11/30/2018 15:30 EDT Driving After Discharge : Do not drive, Other: No driving or operating heavy machinery until released by a physician. JAY JAY CRESPO MD-NEU - 11/22/2018 11:16 EDT documented in this encounter Plan of Treatment Not on file documented as of this encounter Visit Diagnoses Not on filedocumented in this encounter
--- OUTSIDE RECORDS SUMMARY | 2025-06-10 13:17 | XMS_ITS | Encounter Summary ---
Author Organization [employer] ([place], [place], [place], [place]) Address [address] [place] [address] Care Team Providers Care Armed Custom Protection Officer Name Role Phone Unavailable Primary Care Provider Unavailabl e Encounter Details Date Type Department Care Team (Late st Contact Info) Description 11/29/2018 Transcribed Document [facility] [place] Family Medicine [address] [place] [address] ProviderErika MD [address] [place], [place] [id number] Social History Tobacco Use Types Packs/Day Years Used Date Smoking Tobacco: Never Assessed Sex and Gender Information Value Date Recorded Sex Assigned at Not on file Legal Sex Male 5:03 PM CDT Gender Identity Not on file Sexual Orientation Not on file documented as of this encounter Miscellaneous Notes * Cerner Conversion Note - Historical ProviderMD - 11/29/2018 2:00 AM CDT Online Content Coordinator Details Entered On: 11/29/2018 1:39 EDT Performed [...] EDT Electronically signed by Christina Saini Conversion Die Casting Machine Maintainer Cerner at 12/08/2022 12:30 PM CDT documented in this encounter Plan of Treatment Not on file documented as of this encounter Visit Diagnoses Not on filedocumented in this encounter
--- OUTSIDE RECORDS SUMMARY | 2025-06-10 13:17 | XMS_ITS | Encounter Summary ---
Author Organization [employer] ([place], [place], [place], [place]) Address [address] [place] [address] Care Team Providers Care Group Work Program Aide Name Role Phone Unavailable Primary Care Provider Unavailabl e Encounter Details Date Type Department Care Team (Late st Contact Info) Description 11/29/2018 Transcribed Document [facility] [place] Family Medicine [address] [place] [address] ProviderErika MD [address] [place], [place] [id number] Social History Tobacco Use Types Packs/Day Years [...] 1940 Associated Diagnoses: CAD (coronary artery disease), [place] coronary artery; Thrombocytopenia; Coronary artery disease; HTN [...] Non-distended, Normal bowel sounds. Integumentary: Warm, Dry, [place], incision is C/D/I. Neurologic: Alert, left sided [...] (Current Encounter/Past 24 Hours) PT 31.3 Second(s) NV 11/29/2018 06:38 PTT 27.6 Second(s) 11/28/2018 08:53 INR 3.0 NV 11/29/2018 06:38 . Impression and Plan Plan: [...] discharge- has sent information to [facility] -Transfer to [facility] 11/24/18 -POD#8 -Awaiting transfer to [facility] -Awaiting response from [facility] 11/25/18 -POD#9 -left upper extremity venous doppler - doppler this am positive for LUE DVT - will start coumadin and heparin bridge -awaiting [facility] 11/26/18 -POD#10 -Heparin drip and coumadin for LUE DVT -Left arm swelling improved today -INR 1.1 today, INR goal 2-3 -Possibly transfer to [facility] this weekend 11/27/18: -POD#11 -Left arm swelling continues to improve -Continues on Coumadin and heparin bridge -INR: 1.4 (1.1 yesterday) goal: 2 to 3 -[facility] soon,? Tomorrow 11/28/18: -POD#12 -BP in 70s-80s this AM -He had a dark black stool and has had a couple of fluid boluses -Heparin was D/C'd and his INR is 2.0 this AM (on coumadin 5mg qd) -Hct is down to 23.6 -GI med has been consulted and he is to undergo EGD -Also some blood has been set up. -[facility] 11/29/18: -POD#13 -Upper endoscopy showed duodenal ulceration [...] D/C due to GI bleed. -Transfer to [facility] EF 55-60% per echo 11/16/18 DVT Prophylaxis: SCDs Diagnosis CAD (coronary artery disease), [place] coronary artery - Admitting, Medical. Thrombocytopenia - [...]
--- OUTSIDE RECORDS SUMMARY | 2025-06-10 13:17 | XMS_ITS | Encounter Summary ---
Author Organization [employer] ([place], [place], [place], [place]) Address [address] [place] [address] Care Team Providers Care Scrap Baler Name Role Phone Unavailable Primary Care Provider Unavailabl e Encounter Details Date Type Department Care Team (Late st Contact Info) Description 11/29/2018 Transcribed Document [facility] [place] [address] [place] [address] ProviderErika MD [address] [place] [address] Social History Tobacco Use Types [...]
--- OUTSIDE RECORDS SUMMARY | 2025-06-10 13:17 | XMS_ITS | Encounter Summary ---
Author Organization [employer] ([place], [place], [place], [place]) Address [address] [place] [address] Care Team Providers Care Demo Coordinator Name Role Phone Unavailable Primary Care Provider Unavailabl e Encounter Details Date Type Department Care Team (Late st Contact Info) Description 11/29/2018 Transcribed Document [facility] [place] [address] [place] [address] ProviderErika MD [address] [place] [address] Social History Tobacco Use Types [...]
--- OUTSIDE RECORDS SUMMARY | 2025-06-10 13:17 | XMS_ITS | Encounter Summary ---
Author Organization [employer] ([place], [place], [place], [place]) Address [address] [place] [address] Care Team Providers Care Mother Repairer Name Role Phone Unavailable Primary Care Provider Unavailabl e Encounter Details Date Type Department Care Team (Late st Contact Info) Description 11/29/2018 Transcribed Document [facility] [place] Family Medicine [address] [place] [address] ProviderErika MD [address] [place] [address] Social History Tobacco Use Types Packs/Day Years Used Date Smoking Tobacco: Never Assessed Sex and Gender Information Value Date Recorded Sex Assigned at Not on file Legal Sex Male 5:03 PM CDT Gender Identity Not on file Sexual Orientation Not on file documented as of this encounter Miscellaneous Notes * Cerner Conversion Note - Erika ProviderMD - 11/29/2018 2:51 PM CDT [facility] Endo PACU Summary Primary Physician: RIGOBERTO YU MD Finalized Date/Time: 11/29/18 15:36:07 Pt. Name: VILLASENOR DOTTIE Ladan /Sex: 1940 Male Med Rec #: [id number] Physician: JULIO CESAR CARVALHO [facility] Financial #: [id number] Pt. Type: I Room/Bed: 330/1 Admit/Disch: 11/16/18 06:45:00 - Institution: [facility] Endo PACU Case Times Entry 1 In PACU I 11/29/18 15:10:00 Ready for PACU 11/29/18 15:35:00 Discharge Discharge from PACU 11/29/18 15:35:00 I Last Modified By: Destiney Mckenzie RN 11/29/18 15:35:51 [facility] Endo PACU Case Times Audit 11/29/18 15:35:51 Licensed Practical Nurse Clinic Nurse: JAYOSETC Modifier: [email or web address] <+> 1 Ready for PACU Discharge <+> 1 Discharge from PACU I Finalized By: Destiney Mckenzie RN Document Signatures Signed By: Destiney Mckenzie RN 11/29/18 15:36 Electronically signed by [facility] Conversion Flat Knitter Cerner at 12/08/2022 12:16 PM CDT documented in this encounter Plan of Treatment Not on file documented as of this encounter Visit Diagnoses Not on filedocumented in this encounter
--- OUTSIDE RECORDS SUMMARY | 2025-06-10 13:17 | XMS_ITS | Encounter Summary ---
Author Organization [employer] ([place], [place], [place], [place]) Address [address] [place] [address] Care Team Providers Care Corporate Auditor Name Role Phone Unavailable Primary Care Provider Unavailabl e Encounter Details Date Type Department Care Team (Late st Contact Info) Description 11/29/2018 Transcribed Document [facility] [place] Family Medicine [address] [place] [address] ProviderErika MD [address] [place], [place] [phone] Social History Tobacco Use Types Packs/Day Years Used Date Smoking Tobacco: Never Assessed Sex and Gender Information Value Date Recorded Sex Assigned at Not on file Legal Sex Male 5:03 PM CDT Gender Identity Not on file Sexual Orientation Not on file documented as of this encounter Miscellaneous Notes * Cerner Conversion Note - Erika ProviderMD - 11/29/2018 1:37 PM CDT Discharge Summary, FORMULATION CHEMIST Entered On: 11/29/2018 13:40 EDT Performed On: 11/29/2018 13:37 EDT by JOSSUE RODRÍGUEZ FORMULATION CHEMIST Discharge Notation. FORMULATION CHEMIST Dysphagia Treatment After Discharge : No Discharge Diet : Regular Discharge Liquids : Thin Discharge Summary Comment, FORMULATION CHEMIST : Attempted to see pt for language [...] - 11/29/2018 13:37 EDT LTG Lang/Comm/Cog LTG FORMULATION CHEMIST Qa Test Analyst Goal 1 Jail Goal 2 Goals : Improved spoken language expression at the time of discharge Improved auditory/spoken language comprehension at the time of discharge Status : Discontinue Discontinue JOSSUE RODRÍGUEZ SLP - 11/29/2018 13:37 EDT JOSSUE RODRÍGUEZ, [facility] - 11/29/2018 13:37 EDT STG Lang_Comm_Cog Motor Speech STG Grid Goal #1 Activity : Improve intelligibility of speech Status : Discontinue JOSSUE RODRÍGUEZ [facility] - 11/29/2018 13:37 EDT Auditory Comprehension Grid Goal #1 Goal #2 Activity : Follow directions, 3 step commands simple Comprehend paragraph complex Status : Discontinue Discontinue JOSSUE RODRÍGUEZ [facility] - 11/29/2018 13:37 EDT JOSSUE RODRÍGUEZ, [facility] - 11/29/2018 13:37 EDT Verbal Expression STG Grid Goal #1 Activity : Generate items in a category Status : Discontinue JOSSUE RODRÍGUEZ FORMULATION CHEMIST - 11/29/2018 13:37 EDT Reading Comprehension STG Grid Goal #1 Activity : Visual perception deficits Status : Discontinue JOSSUE RODRÍGUEZ [facility] - 11/29/2018 13:37 EDT Attention STG Grid Goal #1 Activity : Other: Probe Status : Goal met Date Met : 11/24/2018 EDT JOSSUE RODRÍGUEZ [facility] - 11/29/2018 13:37 EDT Memory STG Grid Goal #1 Goal #2 Goal #3 Activity : Other: Probe Improve short term functional delayed Improve short term working memory Status : Goal met Discontinue Discontinue Date Met : 11/24/2018 EDT JOSSUE RODRÍGUEZ, [facility] - 11/29/2018 13:37 EDT JOSSUE RODRÍGUEZ, [facility] - 11/29/2018 13:37 EDT JOSSUE RODRÍGUEZ, [facility] - 11/29/2018 13:37 EDT Problem Solving STG Grid Goal #1 Goal #2 Goal #3 Goal #4 Activity : Generate a list of simple/concrete items Label items in a category, complex/abstract Other: Probe Improve simple problem solving Status : Discontinue Discontinue Goal met Discontinue Date Met : 11/24/2018 EDT JOSSUE RODRÍGUEZ, [facility] - 11/29/2018 13:37 EDT JOSSUE RODRÍGUEZ, [facility] - 11/29/2018 13:37 EDT JOSSUE RODRÍGUEZ, [facility] - 11/29/2018 13:37 EDT JOSSUE RODRÍGUEZ, FORMULATION CHEMIST - 11/29/2018 13:37 EDT Swallow Plan/Goals Swallow LTG Grid FORMULATION CHEMIST Jail Goal #1 FORMULATION CHEMIST Qa Test Analyst Goal #2 Swallow LTG : Establish safe [...]
--- OUTSIDE RECORDS SUMMARY | 2025-06-10 13:17 | XMS_ITS | Encounter Summary ---
Author Organization [employer] ([place], [place], [place], [place]) Address [address] [place] [address] Care Team Providers Care Thumb Sewer Name Role Phone Unavailable Primary Care Provider Unavailabl e Encounter Details Date Type Department Care Team (Late st Contact Info) Description 11/29/2018 Transcribed Document [facility] [place] [address] [place] [address] ProviderErika MD [address] [place] [address] Social History Tobacco Use Types Packs/Day Years Used Date Smoking Tobacco: Never Assessed Sex and Gender Information Value Date Recorded Sex Assigned at Not on file Legal Sex Male 5:03 PM CDT Gender Identity Not on file Sexual Orientation Not on file documented as of this encounter Miscellaneous Notes * Cerner Conversion Note - Historical ProviderMD - 11/29/2018 11:15 AM CDT ASSISTANT SITE MANAGER Attempt to Treat Entered On: 11/29/2018 [...]
--- OUTSIDE RECORDS SUMMARY | 2025-06-10 13:17 | XMS_ITS | Encounter Summary ---
Author Organization [employer] ([place], [place], [place], [place]) Address [address] [place] [address] Care Team Providers Care Sulfate Drier Machine Operator Name Role Phone Unavailable Primary Care Provider Unavailjuliana e Encounter Details Date Type Department Care Team (Late st Contact Info) Description 11/29/2018 Transcribed Document [facility] [place] Family Medicine [address] [place] [address] ProviderErika MD [address] [place] [address] Social History Tobacco Use Types [...] unspecified 11/17/2018 00:00 Atherosclerotic heart disease of [place] coronary artery without angina pectoris 11/17/2018 00:00 Essential (primary) hypertension 11/17/2018 00:00 Hypothyroidism, unspecified 11/17/2018 00:00 Nonrheumatic aortic (valve) insufficiency 11/17/2018 00:00 Restless legs syndrome 11/17/2018 00:00 Thoracic aortic aneurysm, without rupture 11/17/2018 00:00 Thrombocytopenia, unspecified 11/16/2018 00:00 Atherosclerotic heart disease of [place] coronary artery without angina pectoris 11/16/2018 00:00 Nonrheumatic aortic (valve) insufficiency 11/16/2018 00:00 Thoracic aortic aneurysm, without rupture Admission Date : 11/16/2018 06:45 Co-treated by, OT : budget assistant (BOILER ROOM OPERATOR) Personal Devices : Personal Devices No Devices [...] DAKOTA VELAZQUEZ OTR/L - 11/29/2018 13:08 EDT [facility] Goals, OT Self Feeding LTG Grid Goal #1 Activity : Self feeding Assist : Independent, modified Date to Meet : 12/07/2018 EDT Goal Status : Progressing, continue CAROLINEDAKOTA Luana OTR/L - 11/29/2018 13:08 EDT Grooming LTG Grid Goal #1 Activity : Grooming Assist : Assist, minimal Date to Meet : 12/07/2018 EDT Goal Status : Initial goal CAROLINE TRISTANJACYOB Craft OTR/L - 11/29/2018 13:08 EDT Dressing, [...] Electronically signed by Christina Saini Conversion Head Of Operation And Logistics Cerner at 12/08/2022 12:19 PM CDT documented in this encounter Plan of Treatment Not on file documented as of this encounter Visit Diagnoses Not on filedocumented in this encounter
--- OUTSIDE RECORDS SUMMARY | 2025-06-10 13:18 | XMS_ITS | Encounter Summary ---
Author Organization [employer] ([place], [place], [place], [place]) Address [address] [place] [address] Care Team Providers Care Metal Precision Machine Assembler Name Role Phone Unavailable Primary Care Provider Unavailabl e Encounter Details Date Type Department Care Team (Late st Contact Info) Description 11/30/2018 Transcribed Document [facility] [place] Family Medicine [address] [place] [address] ProviderErika MD [address] [place], [...] 330. Discussed w/ Carmen from [facility] who is still following pt. She has submitted pt info to for approval. Pt had EGD 11/29 which revealed duodenal ulcer w/ clot but no bleeding, no intervention needed, Off heparin gtt, watching pt's INR and H & H. Speech signed off today, pt is cleared for thins. Met w/ pt and family and informed them of [facility] situation. Also discussed outpt Cardiac Rehab. They prefer to go to [facility]. Phoned them and left msg, sent [...] on 11/25/18) followed up with [facility] today regarding possible admission - plan [...] on 11/25/18) followed up with [facility] today regarding possible admission - plan is to submit for approval today after being seen by therapy, for their MD approval. Once accepting MD in place, bed in place and patient is medically stable will be able to transfer due to patient not requiring a insurance prior auth. CM will continue to follow. ODALYS FAULKNER Rn-Rod Finisher - 11/24/18 13:22:19 11/24/18 Andra from [facility] called to let me know they started a precert on this pt. CF ODALYS FAULKNER Rn-Rod Finisher - 11/22/18 13:56:32 11/22/18 Pt has had a cva. Spoke to his Connie and son Sumeet at the bedside. Pt is lfacid on the left side. Discussed the need for STR and they decided on [facility]. Sent pt info via [employer] to [facility]. CF Documentation Status Complete : Yes SUZANNA HAINES Leasing Agent - 11/30/2018 15:24 EDT Discharge Planning Details Persons Assisting Patient at Home : Spouse SUZANNA HAINES Social Worker - 11/30/2018 15:24 EDT Electronically signed by [facility] Conversion Paperboard Boxes Estimator Felipe at 12/08/2022 12:27 PM CDT documented in this encounter Plan of Treatment Not on file documented as of this encounter Visit Diagnoses Not on filedocumented in this encounter
--- OUTSIDE RECORDS SUMMARY | 2025-06-10 13:18 | XMS_ITS | Encounter Summary ---
Author Organization [employer] ([place], [place], [place], [place]) Address [address] [place] [address] Care Team Providers Care Teenage Program Director Name Role Phone Unavailable Primary Care Provider Unavailabl e Encounter Details Date Type Department Care Team (Late st Contact Info) Description 11/30/2018 Transcribed Document [facility] [place] Family Medicine [facility] [address] ProviderErika MD [address] [place] [address] Social History Tobacco Use Types [...] Jose MD - 11/30/2018 3:31 PM CDT [address] [address] Patient Copy Patient Information: Name: DOTTIE VILLASENOR Current Date: 11/30/2018 15:31:38 : 1940 Patient Address: [address] [place] [id number] Patient Attending Physician: JULIO CESAR CARVALHO MD-[facility] Primary Care Provider: DEMETRICE ARMIJO NP-[facility] Primary Care Provider Discharge Diagnosis: Acute blood loss anemia; Aortic insufficiency; Coronary artery disease; GI bleed; LUE DVT (deep venous thrombosis); Right MCA CVA (cerebral vascular accident); Thoracic ascending aortic aneurysm Weight on Admission: 174 lb, 5 oz Weight at Discharge: 164 lb, 1 oz Comment: Follow-up Instructions: With: Address: When: JOHN BOWEN [address], [address] [place] [address] Business (1) Within 6 weeks Comments: Patient should call for a follow up appointment with [facility]. Discharge Instructions: Driving after Discharge: Do not drive, Other: No driving or operating heavy machinery until released by a physician. Community Services: Outpt Cardiac Rehab [facility] [phone] They will call pt w/ appt time. [...] 09/17/2005 Document Revised: 01/15/2017 Document Reviewed: 02/10/2014 [employer] Patient Education ? 2017 [employer] CIGARETTE SMOKING: The facts are clear, cigarette smoking will shorten your life. Smoking can cause many illnesses along the way. As a healthcare provider, we recommend that you stop smoking. Assistance with quitting is available by contacting 7-546-TPSJ-NOW. This is a free resource providing counseling, [...] Be sure to sign up for the [facility] patient portal, which gives you 16/03 access to your medical information ??? including these discharge instructions ??? using your computer, smartphone, or tablet. Just go to [employer] to get started. Questions? Call . [facility] would like to thank you for allowing us to assist you with your healthcare needs. HAMILTON Jarvis ROBERT H, (or mechanical service representative) have received the above patient education materials/instructions and have verbalized understanding: Patient Signature _ Date/Time Patient Assembly Manager Signature (if needed) Date/Time Clinician/Hospital Assembly Manager Signature (if needed) Date/Time documented in this encounter Plan of Treatment Not on file documented as of this encounter Visit Diagnoses Not on filedocumented in this encounter
--- OUTSIDE RECORDS SUMMARY | 2025-06-10 13:18 | XMS_ITS | Data Portability ---
Author Organization LIZ XIMENA Leav[facility] [place] [facility] Address [address] [place] [address] Assessment Encounter Date Assessment Date Assessment LastModified by Organization Details LastModified Time 07/01/2023 07/01/2023 PREOPERATIVE DIAGNOSIS: Bladder calculus, 13 mm. POSTOPERATIVE DIAGNOSIS: Bladder calculus, 13 mm with BPH. PROCEDURE: Cystolitholapaxy with dilation of distal urethra. 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 SURGEON: Cong Villasenor MD ANESTHESIA: General. DRAINS: 18-Libyan urethral Michele catheter. INDICATIONS: Patient with previous [...] prepped and draped in normal fashion. A 22-Libyan cystoscopy sheath was introduced. Pendulous urethra revealed some difficulty introducing at the meatus. I then used the Hardin sounds to dilate the distal urethra up to 24-Libyan. I then easily advanced down the urethra. [...] Lab urinalysis , dipstick, auto 2018 019 [facility] Extended Services With [facility], [address], [address] [place] [address], [address], 9 08:09:21 urinalysis , dipstick, auto 2018 019 [facility] Extended Services With [facility], [address], [address], [place], [address], 9 14:02:35 Referral None recorded. Procedures None recorded. Surgeries None recorded. Imaging None recorded. Medication Orders trospium ER 60 mg capsule,ex tended release [address] [facility] [address] [place], [address], 3 14:33:52 alfuzosin ER 10 mg tablet,ext ended release 24 hr 2018 019 [facility] [address] [place], [address], 9 15:32:14 Patient TargetsNo targets recorded. Patient Instructions Encounter Date Encounter Id Patient Instructions Last Modified By Organization Details Last Modified Time 05/16/2019 [id number] At this point given the patient's comorbid [...] weeks. [email or web address] Not available 05/16/2019 14:03:13 06/27/2019 [id number] continue medical therapy [email or web address] Not available 06/29/2019 08:09:20 Reason for Referral None Reported. Results Created Date Observation Date Name Description Value Unit Range Abnormal Flag Note LastModifiedBy Organization Detail LastModifiedTime 06/27/2006/27/2019 urina lysis , dipst ick, auto Unknown Analyte Yellow Not Available [facility] Extended Services With [address], [place], [address], 06/27/2019 15:52:46 06/27/2006/27/2019 urina lysis , dipst ick, auto Unknown Analyte Clear Not Available [facility] Extended Services With [place] [address] [facility] [address], [place], [address], 06/27/2019 15:52:46 06/27/20 19 06/27/2019 urina lysis , dipst ick, auto Unknown Analyte 1.010 Not Available [facility] Extended Services With [place] [address], [place], [address], 06/27/2019 15:52:46 06/27/20 19 06/27/2019 urina lysis , dipst ick, auto Unknown Analyte 1.003 - 1.035 Not Available [facility] [address], [place], [address], 06/27/2019 15:52:46 06/27/20 19 06/27/2019 urina lysis , dipst ick, auto Unknown Analyte 7.0 Not Available [facility] Extended Services With [place] [address] [facility] [address], [place], [address], 06/27/2019 15:52:46 06/27/20 19 06/27/2019 urina lysis , dipst ick, auto Unknown Analyte 5.0 - 8.0 Not Available [facility] [place] Extended Services With [facility] [address], [place], [address], 06/27/2019 15:52:46 06/27/20 19 06/27/2019 urina lysis , dipst ick, auto Unknown Analyte Negati ve Not Available [facility] [place] Extended Services With [facility] [address], [place], [address], 06/27/2019 15:52:46 06/27/20 19 06/27/2019 urina lysis , dipst ick, auto Unknown Analyte Negati ve Not Available [facility] [place] Extended Services With [facility] [address], [place], [address], 06/27/2019 15:52:46 06/27/20 19 06/27/2019 urina lysis , dipst ick, auto Unknown Analyte Negati ve Not Available [facility] [place] Extended Services With [facility] [address], [place], [address], 06/27/2019 15:52:46 06/27/2006/27/2019 urina lysis , dipst ick, auto Unknown Analyte Negati ve Not Available [facility] [place] Extended Services With [facility] [address], [place], [address], 06/27/2019 15:52:46 06/27/20 19 06/27/2019 urina lysis , dipst ick, auto Unknown Analyte Negtiv e Not Available [facility] [place] Extended [facility] With [facility] [address], [place], [address], 06/27/2019 15:52:46 06/27/20 19 06/27/2019 urina lysis , dipst ick, auto Unknown Analyte Negati ve - Trace Not Available [facility] [place] Extended Services With [facility] [address], [place], [address], 06/27/2019 15:52:46 06/27/20 19 06/27/2019 urina lysis , dipst ick, auto Unknown Analyte Normal Not Available [facility] [place] Extended Services With [facility] [address], [place], [address], 06/27/2019 15:52:46 06/27/20 19 06/27/2019 urina lysis , dipst ick, auto Unknown Analyte Normal Not Available [facility] [place] Extended Services With [facility] [address], [place], [address], 06/27/2019 15:52:46 06/27/20 19 06/27/2019 urina lysis , dipst ick, auto Unknown Analyte Negati ve Not Available [facility] [place] [facility] [address], [place], [address], 06/27/2019 15:52:46 06/27/20 19 06/27/2019 urina lysis , dipst ick, auto Unknown Analyte Negati ve Not Available [facility] [place] [facility] With [facility] [address], [place], [address], 06/27/2019 15:52:46 06/27/20 19 06/27/2019 urina lysis , dipst ick, auto Unknown Analyte Normal Not Available [facility] [place] [facility] Services With [facility] [address], [place], [address], 06/27/2019 15:52:46 06/27/20 19 06/27/2019 urina lysis , dipst ick, auto Unknown Analyte Normal - 1mg/dl Not Available [facility] [place] Extended Services With [facility] [address], [place], [address], 06/27/2019 15:52:46 06/27/2006/27/2019 urina lysis , dipst ick, auto Unknown Analyte Negati ve Not Available [facility] [place] [facility] With [facility] [address], [place], [address], 06/27/2019 15:52:46 06/27/2006/27/2019 urina lysis , dipst ick, auto Unknown Analyte Negati ve Not Available [facility] [place] [facility] [address], [place], [address], 06/27/2019 15:52:46 06/27/20 19 06/27/2019 urina lysis , dipst ick, auto Unknown Analyte Negati ve Not Available [facility] [place] [facility] [address], [place], [address], 06/27/2019 15:52:46 06/27/2006/27/2019 urina lysis , dipst ick, auto Unknown Analyte Negati ve Not Available [facility] [place] [facility] [address], [place], [address], 06/27/2019 15:52:46 06/27/20 19 06/27/2019 urina lysis , dipst ick, auto Unknown Analyte Clean Catch Not Available [facility] [place] [facility] [address] [facility] [address], [place], [address], 06/27/2019 15:52:46 06/27/20 19 06/27/2019 urina lysis , dipst ick, auto Unknown Analyte Automa jamshid Not Available [facility] [place] [facility] [address] [facility] [address], [place], [address], 06/27/2019 15:52:46 05/16/20 19 05/16/2019 urina lysis , dipst ick, auto Unknown Analyte Yellow Not Available [facility] [place] [facility] [address] [facility] [address], [place], [address], 05/16/2019 13:23:16 05/16/20 19 05/16/2019 urina lysis , dipst ick, auto Unknown Analyte Clear Not Available [facility] [place] [facility] [address] [facility] [address], [place], [address], 05/16/2019 13:23:16 05/16/20 19 05/16/2019 urina lysis , dipst ick, auto Unknown Analyte 1.020 Not Available [facility] Extended Services With [facility] [address] [facility] [address], [place], [address], 05/16/2019 13:23:16 05/16/2005/16/2019 urina lysis , dipst ick, auto Unknown Analyte 1.003 - 1.035 Not Available [facility] [place] [facility] With [facility] [address] [facility] [address], [place], [address], 05/16/2019 13:23:16 05/16/20 19 05/16/2019 urina lysis , dipst ick, auto Unknown Analyte 5.0 Not Available [facility] [place] [facility] [address] [facility] [address], [place], [address], 05/16/2019 13:23:16 05/16/20 19 05/16/2019 urina lysis , dipst ick, auto Unknown Analyte 5.0 - 8.0 Not Available [facility] [place] [facility] With [facility] [address], [place], [address], 05/16/2019 13:23:16 05/16/20 19 05/16/2019 urina lysis , dipst ick, auto Unknown Analyte Negati ve Not Available [facility] [place] [facility] With [facility] [address], [place], [address], 05/16/2019 13:23:16 05/16/20 19 05/16/2019 urina lysis , dipst ick, auto Unknown Analyte Negati ve Not Available [facility] [place] [facility] [address], [place], [address], 05/16/2019 13:23:16 05/16/20 19 05/16/2019 urina lysis , dipst ick, auto Unknown Analyte Negati ve Not Available [facility] [place] [facility] [address], [place], [address], 05/16/2019 13:23:16 05/16/20 19 05/16/2019 urina lysis , dipst ick, auto Unknown Analyte Negati ve Not Available [facility] [place] [facility] With [facility] [address], [place], [address], 05/16/2019 13:23:16 05/16/20 19 05/16/2019 urina lysis , dipst ick, auto Unknown Analyte Negtiv e Not Available [facility] [place] [facility] [address], [place], [address], 05/16/2019 13:23:16 05/16/20 19 05/16/2019 urina lysis , dipst ick, auto Unknown Analyte Negati ve - Trace Not Available [facility] [place] [facility] [address], [place], [address], 05/16/2019 13:23:16 05/16/20 19 05/16/2019 urina lysis , dipst ick, auto Unknown Analyte Normal Not Available [facility] Extended Services With [facility] [address], [place], [address], 05/16/2019 13:23:16 05/16/20 19 05/16/2019 urina lysis , dipst ick, auto Unknown Analyte Normal Not Available [facility] Extended Services With [facility] [address], [place], [address], 05/16/2019 13:23:16 05/16/20 19 05/16/2019 urina lysis , dipst ick, auto Unknown Analyte 15 mg/dl (Sm) Not Available [facility] Services With [facility] [address], [place], [address], 05/16/2019 13:23:16 05/16/20 19 05/16/2019 urina lysis , dipst ick, auto Unknown Analyte Negati ve Not Available [facility] Extended Services With [facility] [address], [place], [address], 05/16/2019 13:23:16 05/16/20 19 05/16/2019 urina lysis , dipst ick, auto Unknown Analyte Normal Not Available [facility] Extended Services With [facility] [address], [place], [address], 05/16/2019 13:23:16 05/16/20 19 05/16/2019 urina lysis , dipst ick, auto Unknown Analyte Normal - 1mg/dl Not Available [facility] [place] [facility] With [facility] [address], [place], [address], 05/16/2019 13:23:16 05/16/20 19 05/16/2019 urina lysis , dipst ick, auto Unknown Analyte Negati ve Not Available [facility] [place] [facility] With [facility] [address], [place], [address], 05/16/2019 13:23:16 05/16/20 19 05/16/2019 urina lysis , dipst ick, auto Unknown Analyte Negati ve Not Available [facility] [place] [facility] With [facility] [address], [place], [address], 05/16/2019 13:23:16 05/16/20 19 05/16/2019 urina lysis , dipst ick, auto Unknown Analyte Negati ve Not Available [facility] [place] [facility] [address], [place], [address], 05/16/2019 13:23:16 05/16/20 19 05/16/2019 urina lysis , dipst ick, auto Unknown Analyte Negati ve Not Available [facility] [place] [facility] [address], [place], [address], 05/16/2019 13:23:16 05/16/20 19 05/16/2019 urina lysis , dipst ick, auto Unknown Analyte Clean Catch Not Available [facility] [place] [facility] [address], [place], [address], 05/16/2019 13:23:16 05/16/20 19 05/16/2019 urina lysis , dipst ick, auto Unknown Analyte Automa [email or web address] Not Available [facility] [place] [facility] [address], [place], [address], 05/16/2019 13:23:16 07/01/20 23 07/07/2023 STONE GERMAINE SIS composition SEE BELOW normal Calci um Oxala te Dihyd rate (Wedd ellit e) 15% Calci um Oxala te Monoh ydrat e (Whew ellit e) 70% Carbo stephany Apati te (Dahl lite) 15% See Note 1 Not Available [facility] [address] [place] [address], [address], 07/07/2023 18:14:54 07/01/2007/07/2023 STONE GERMAINE SIS weight [...] for clini long purpo ses. Not Available [facility] [address] [place], [address], 07/07/2023 18:14:54 Result Notes None recorded. Problems Name Problem SNOMED Code Status Onset Date Resolution Date Notes Provider Name and Address Organization Details Recorded Time Lower urinary tract symptoms due to benign prostatic hypertrophy 9757319670844 1 Active 2018 LEYLA SHAH JR, MD [address] [place] [address], [address] , [facility] 9 11:50:21 Increased frequency of urination 509180274 Active 2018 LEYLA SHAH JR, MD [address] [place] [address], [address], [facility] 9 20:29:31 Nocturia 016325977 Active 2018 LEYLA SHAH JR, MD [address] [place] [address], [address], [facility] 9 20:29:35 Problem Notes None recorded. Procedures Surgical History Date Name Laterality Status Provider Name and Address Organization Details Recorded Time 03/02/20 19 Post Void Residual; Ultrasound completed Rima [facility] 03/02/2019 11:46:22 04/16/20 17 MEATOTOMY, EXCEPT IN (SURG) completed CONG VILLASENOR MD [address] [place] [address], [address], [facility] 04/29/2017 10:19:09 Heart Surgery completed Deseriee [facility] 03/02/2019 11:35:52 cholecystectomy completed [facility] 05/19/2023 16:19:30 Hernia Repair completed [facility] 05/19/2023 16:19:41 Prostate Surgery completed [facility] 05/19/2023 16:19:58 Urinary Bladder completed [facility] 05/19/2023 16:20:09 Imaging Results None recorded. Procedure [...] 2022 active son requests Rx changed to [facility] as pt will not be returning to [facility], so Rx called to new pharmacy per [...] Updated DateTime 05/16/2019 185.42 cm 21.1 kg/m2 48682.78 g [facility] 05/16/2019 13:22:42 Date Recorded Body height Systolic And Diastolic Provider Name and Address Organization Details Last Updated DateTime 06/27/2019 185.42 cm 143/77 mm[Hg[facility] 06/27/2019 15:52:00 Date Recorded Body height Body mass index (BMI) Body weight Provider Name and Address Organization Details Last Updated DateTime 07/08/2023 182.88 cm 29.8 kg/m2 30150.32 g John [facility] 07/08/2023 13:21:37 Social History Question Answer Notes LastModified by Organizat ion Details LastModified Time Tobacco Smoking Status [facility]/2019 11:35:35 Marital Status Informatio n not available 03/02/2019 What Was The Date Of Your Most Recent Tobacco Screening? 03/02/2019 Information not available 10/11/2019 What Is Your Relationship Status? Information not available 05/19/2023 Has Tobacco Cessation Counseling Been Provided? No Information not available 05/19/2023 Sex: Unknown Functional Status Question Answer Note LastModified by Organizat ion Details LastModified Time Do you use any illicit or recreational drugs? No [email or web address] Information not available 05/19/2023 Do you or have you ever used any other forms of tobacco or nicotine? No [email or web address] Information not available 05/19/2023 What is your level of alcohol consumption? 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 Family History Relationship Description Onset Age of this Age Resolved Age Notes LastModified by Organization Details LastModified Time Unspecified Relation Family history of malignant neoplasm colon cancer [email or web address] Not available 05/19/2023 16:18:41 Unspecified Relation Kidney stone paulina Not available 05/2019 11:35:27 Medical History Condition Response Other Y Heart Attack ([place]) Y Arthritis Y Cancer Y Urinary Tract Infection Y Stroke Y Cardiac Disease Y High Cholesterol Y High PSA Y Hypertension Y Kidney Disease Y Past Encounters Encounter ID Performer Location Encounter Start Date Encounter Closed Date Diagnosis/Indication Diagnosis SNOMED-CT Code Diagnosis ICD10 Code Diagnosis IMO Codes Diagnosis Note [id number] LEYLA SHAH JR, MD [address] [place] [address] 03/02/2019 11:00:32 03/07/2019 10:05:38 Lower urinary tract symptoms due to benign prostatic hypertrophy 4764290910 9101 N40.1 Increased frequency of urination 107612397 R35.0 Nocturia 148999069 R35.1 [id number] LEYLA SHAH JR, MD [facility] [address] [facility] [address] [place] [address] 05/16/2019 13:05:53 05/18/2019 08:09:55 Lower urinary tract symptoms due to benign prostatic hypertrophy 1642681512 9101 N40.1 [id number] LEYLA SHAH JR, MD [facility] SERVICES [address] [facility] [address] [place] [address] 06/27/2019 14:58:19 06/30/2019 11:19:02 Lower urinary tract symptoms due to benign prostatic hypertrophy 6268028359 9101 N40.1 Nocturia 000443541 R35.1 [id number] MD JONES FONTANEZ [facility] [address] [place] [address] 05/19/2023 14:49:48 05/19/2023 16:47:49 Urinary bladder stone 01660394 N21.0 follow upp 2 months , earlier if necessary [id number] CONG VILLASENOR MD SURGERY SCHEDULE [address] [place] [address] 07/01/2023 10:05:11 07/01/2023 10:05:30 [id number] MD JONES FONTANEZ [facility] [address] [place] [address] 07/08/2023 13:06:58 07/08/2023 14:09:02 Urinary bladder stone 83830035 N21.0 follow upp 2 months , earlier if necessary, he will complete his antibiotic s Increased frequency of urination 546561757 R35.0 as above Health Concerns Section Related Observation LastModified by Organization Detai ls LastModified Time None Recorded Concern Status LastModified by Organization Details LastModified Time None Recorded Advance Directives Directive None Recorded Payers Insurance Date Sequence Insurance Name Policy Number Policy Mullen Covered Member ID Mullen Member ID Guarantor Name 05/19/2023 1 [place] Jorge Villasenor [id number] Jorge Pickering Fernando 09/06/2023 1 [employer] (MEDICARE REPLACEMENT/A DVANTAGE - PPO) Jorge Pickering Fernando [id number] Jorge Pickering Fernando Notes Date Note Type [...] of 9.3. LEYLA SHAH JR, MD [address] [place], [address], [facility] 05/16/2019 14:03:31 06/27/2019 text/html Patient is in [...] is somewhat improved. LEYLA SHAH JR, MD [address] [place] [address], [address], [facility] 06/29/2019 08:09:36 05/19/2023 text/html pt with h/o [...] it. HE had a Resume treatment in [place] about 3 years ago[address] I reviewed ct scan disc for [facility] CONG VILLASENOR MD [address] [place] [address] [place], [address], [facility] 05/21/2023 11:32:44 07/08/2023 text/html Patient is here [...] had recent cystoscopy. CONG VILLASENOR MD [address] [place], [address], [facility] 07/08/2023 14:34:03
--- OUTSIDE RECORDS SUMMARY | 2025-06-10 13:18 | XMS_ITS | Encounter Summary ---
Author Organization [employer] ([place], [place], [place], [place]) Address [address] [place] [address] Care Team Providers Care Spinner Fixer Name Role Phone Unavailable Primary Care Provider Unavailabl e Encounter Details Date Type Department Care Team (Late st Contact Info) Description 11/30/2018 Transcribed Document [facility] [address] [place] [address] ProviderErika MD [address] [place] [address] Social History Tobacco Use Types [...] Dixie Fox RN - 11/30/2018 3:25 EDT Electronically signed by Christina Saini Conversion Flight Reservations Manager Cerner at 12/08/2022 12:26 PM CDT documented in this encounter Plan of Treatment Not on file documented as of this encounter Visit Diagnoses Not on filedocumented in this encounter
--- OUTSIDE RECORDS SUMMARY | 2025-06-10 13:18 | XMS_ITS | Encounter Summary ---
Author Organization [employer] ([place], [place], [place], [place]) Address [address] [place] [address] Care Team Providers Care Plant Protection Guard Name Role Phone Unavailable Primary Care Provider Unavailabl e Encounter Details Date Type Department Care Team (Late st Contact Info) Description 11/23/[address] [facility] [place] Family Medicine [address] [place] [address] ProviderErika MD [address] [place], [...] unspecified 11/17/2018 00:00 Atherosclerotic heart disease of [place] coronary artery without angina pectoris 11/17/2018 00:00 Essential (primary) hypertension 11/17/2018 00:00 Hypothyroidism, unspecified 11/17/2018 00:00 Nonrheumatic aortic (valve) insufficiency 11/17/2018 00:00 Restless legs syndrome 11/17/2018 00:00 Thoracic aortic aneurysm, without rupture 11/17/2018 00:00 Thrombocytopenia, unspecified 11/16/2018 00:00 Atherosclerotic heart disease of [place] coronary artery without angina pectoris 11/16/2018 00:00 [...] AUDREY GRANDE OTR/Ginny - 11/30/2018 15:25 EDT Correction Goals, OT Self Feeding LTG Grid Goal [...] Family present. MaxAx2 chair to bed transfer, SYSTEM AUDITOR. RN assisting. Pt's L UE very weak. [...]
--- OUTSIDE RECORDS SUMMARY | 2025-06-10 13:18 | XMS_ITS | Encounter Summary ---
Author Organization [employer] ([place], [place], [place], [place]) Address [address] [place] [address] Care Team Providers Care Analysis Intern Name Role Phone Unavailable Primary Care Provider Unavailabl e Encounter Details Date Type Department Care Team (Late st Contact Info) Description 11/30/2018 Transcribed Document [facility] [place] Family Medicine [address] [place] [address] ProviderErika MD [address] [place], [place] [id number] Social History Tobacco Use Types Packs/Day Years [...] Non-distended, Normal bowel sounds. Integumentary: Warm, Dry, [place], incision is C/D/I. Neurologic: Alert, left sided [...] (Current Encounter/Past 24 Hours) PT 27.4 Second(s) [place] 11/30/2018 07:23 INR 2.6 [place] 11/30/2018 07:23 . Impression and Plan Plan: [...] of discharge- CM has sent information to [facility] -Transfer to [facility] 11/24/18 -POD#8 -Awaiting transfer to [facility] -Awaiting response from [facility] 11/25/18 -POD#9 -left upper extremity venous doppler - doppler this am positive for LUE DVT - will start coumadin and heparin bridge -awaiting [facility] 11/26/18 -POD#10 -Heparin drip and coumadin for LUE DVT -Left arm swelling improved today -INR 1.1 today, INR goal 2-3 -Possibly transfer to [facility] this weekend 11/27/18: -POD#11 -Left arm swelling continues to improve -Continues on Coumadin and heparin bridge -INR: 1.4 (1.1 yesterday) goal: 2 to 3 -[facility] soon,? Tomorrow 11/28/18: -POD#12 -BP [...] set up. -Transferred to [facility] 11/29/18: -POD#13 -Upper endoscopy showed duodenal [...] D/C due to GI bleed. -Transfer to [facility] 11/30/18 POD # 14 EGD [...] - Discharge, Medical. Electronically signed by Interface, [facility] Conversion Rug Sample Beveler Cerner at 12/08/2022 12:34 PM CDT documented in this encounter Plan of Treatment Not on file documented as of this encounter Visit Diagnoses Not on filedocumented in this encounter
--- OUTSIDE RECORDS SUMMARY | 2025-06-10 13:18 | XMS_ITS | Encounter Summary ---
Author Organization [employer] ([place], [place], [place], [place]) Address [address] [place] [address] Care Team Providers Care Lubricating Machine Tender Name Role Phone Unavailable Primary Care Provider Unavailabl e Encounter Details Date Type Department Care Team (Late st Contact Info) Description 11/30/2018 Transcribed Document [facility] [place] Family Medicine [address] [place] [address] ProviderErika MD [address] [place] [address] Social History Tobacco Use Types [...] 2 Tab, Oral, BID saliva substitutes, 1 [place], Buccal, Q2H, PRN Senokot, 17.2 mg= 2 Tab, Oral, BID Synthroid, 50 mcg= 2.5 mL, IV Push, Q48H Zofran, 4 mg= 2 mL, IV Push, Q4H, PRN documented in this encounter Plan of Treatment Not on file documented as of this encounter Visit Diagnoses Not on filedocumented in this encounter
--- OUTSIDE RECORDS SUMMARY | 2025-06-10 13:18 | XMS_ITS | Encounter Summary ---
Author Organization [employer] ([place], [place], [place], [place]) Address [address] [place] [address] Care Team Providers Care Iron Guardrail Installer Name Role Phone Unavailable Primary Care Provider Unavailabl e Encounter Details Date Type Department Care Team (Late st Contact Info) Description 11/23/2018 Transcribed Document [facility] [place] [address] [place] [address] ProviderErika MD [address] [place] [address] Social History Tobacco Use Types [...] of Assessment : 11/23/2018 20:00 EDT [facility] Clinician Administering Scale : SHELDON MUELLER [...] in one limb NIH Sensory (8) : Cxhl-wj-sccrtyrn sensory loss NIH Best Language (9) : No aphasia NIH Dysarthria (10) : Normal Extinction and Inattention (11) : No abnormality NIH Scale Score : 9 SHELDON MUELLER RN - 11/23/2018 20:14 EDT documented in this encounter Plan of Treatment Not on file documented as of this encounter Visit Diagnoses Not on filedocumented in this encounter
--- OUTSIDE RECORDS SUMMARY | 2025-06-10 13:19 | XMS_ITS | Encounter Summary ---
Author Organization [employer] ([place], [place], [place], [place]) Address [address] [place] [address] Care Team Providers Care Valve Mechanic Name Role Phone Unavailable Primary Care Provider Unavailabl e Encounter Details Date Type Department Care Team (Late st Contact Info) Description 11/18/2018 Transcribed Document [facility] [place] Family Medicine [address] [place] [address] ProviderErika MD [address] [place] [address] Social History Tobacco Use Types [...] : 11/17/2018 00:00 Atherosclerotic heart disease of [place] coronary artery without angina pectoris 11/17/2018 00:00 Essential (primary) hypertension 11/17/2018 00:00 Hypothyroidism, unspecified 11/17/2018 00:00 Nonrheumatic aortic (valve) insufficiency 11/17/2018 00:00 Restless legs syndrome 11/17/2018 00:00 Thoracic aortic aneurysm, without rupture 11/17/2018 00:00 Thrombocytopenia, unspecified 11/16/2018 00:00 Atherosclerotic heart disease of [place] coronary artery without angina pectoris 11/16/2018 00:00 [...] SENIA QUINTANA PTA - 11/23/2018 10:24 EDT Custodial Goals Mobility/Bed Mobility LTG PT Grid Goal [...] SENIA QUINTANA PTA - 11/23/2018 10:24 EDT [place] PT Charges PT Therap. Exercise 15 min : 1 PT Ther Activities Ea 15 Min : 1 SENIA QUINTANA PTA - 11/23/2018 10:24 EDT documented in this encounter Plan of Treatment Not on file documented as of this encounter Visit Diagnoses Not on filedocumented in this encounter
--- OUTSIDE RECORDS SUMMARY | 2025-06-10 13:19 | XMS_ITS | Encounter Summary ---
Author Organization [employer] ([place], [place], [place], [place]) Address [address] [place] [address] Care Team Providers Care Microfilm Mounter Name Role Phone Unavailable Primary Care Provider Unavailabl e Encounter Details Date Type Department Care Team (Late st Contact Info) Description 11/17/2018 Transcribed Document [facility] [place] [address] [place] [address] ProviderErika MD [address] [place] [address] Social History Tobacco Use Types [...]
--- OUTSIDE RECORDS SUMMARY | 2025-06-10 13:19 | XMS_ITS | Encounter Summary ---
Author Organization [employer] ([place], [place], [place], [place]) Address [address] [place] [address] Care Team Providers Care Health Researcher Name Role Phone Unavailable Primary Care Provider Unavailabl e Encounter Details Date Type Department Care Team (Late st Contact Info) Description 11/30/2018 Transcribed Document [facility] [place] [address] [place] [address] ProviderErika MD [address] [place], [...]
--- OUTSIDE RECORDS SUMMARY | 2025-06-10 13:19 | XMS_ITS | Encounter Summary ---
Author Organization [employer] ([place], [place], [place], [place]) Address [address] [place] [address] Care Team Providers Care Stripe Matcher Name Role Phone Unavailable Primary Care Provider Unavailabl e Encounter Details Date Type Department Care Team (Late st Contact Info) Description 11/30/2018 Transcribed Document [facility] [place] [address] [place] [address] ProviderErika MD [address] [place], [...] EDT Electronically signed by Christina Saini Conversion Assistant Refinery Operator Cerner at 12/08/2022 12:16 PM CDT documented in this encounter Plan of Treatment Not on file documented as of this encounter Visit Diagnoses Not on filedocumented in this encounter
--- OUTSIDE RECORDS SUMMARY | 2025-06-10 13:19 | XMS_ITS | Encounter Summary ---
Author Organization [employer] ([place], [place], [place], [place]) Address [address] [place] [address] Care Team Providers Care Consulting Hr Professional Name Role Phone Unavailable Primary Care Provider Unavailabl e Encounter Details Date Type Department Care Team (Late st Contact Info) Description 11/25/2018 Transcribed Document [facility] [place] Family Medicine [address] [place] [address] ProviderErika MD [address] [place] [address] Social History Tobacco Use Types [...] Time of Assessment : 11/25/2018 9:00 EDT [facility] [place] Clinician Administering Scale : Elissa Rodarte RN [...]
--- OUTSIDE RECORDS SUMMARY | 2025-06-10 13:19 | XMS_ITS | Encounter Summary ---
Author Organization [employer] ([place], [place], [place], [place]) Address [address] [place] [address] Care Team Providers Care Marketing Researcher Name Role Phone Unavailable Primary Care Provider Unavailjuliana e Encounter Details Date Type Department Care Team (Late st Contact Info) Description 11/17/2018 Transcribed Document [facility] [place] Family Medicine [address] [place] [address] ProviderErika MD [address] [place] [address] Social History Tobacco Use Types [...] On: 11/17/2018 11:49 EDT by Lizabeth Marti, Petroleum Products District Supervisor Nutrition Assessment Nutrition Assessment Reason : Consult [...] wnls + sternum midline incision GI: LBM TIMBER MANAGEMENT ASSISTANT, hypoactive BS, +NGT, +chest tube (1030 ml) HT: 185cm (6'1) ADMIT WT: 79kg/174# BMI: 23 IBW: 79kg/100% NFPE: insignificant EST NEEDS: 8272-8909 kcal (25-30kcal/kg), 95g pro (1.2g/kg) Lizabeth Marti [...] recommend initate po diet (cardiac) w/consitencies per EXPEDITIONARY FIGHTING VEHICLE CREWMAN. RD will monitor need for supplement. goal: [...]
--- OUTSIDE RECORDS SUMMARY | 2025-06-10 13:19 | XMS_ITS | Encounter Summary ---
Author Organization [employer] ([place], [place], [place], [place]) Address [address] [place] [address] Care Team Providers Care Store Management Trainee Name Role Phone Unavailable Primary Care Provider Unavailabl e Encounter Details Date Type Department Care Team (Late st Contact Info) Description 11/17/2018 Transcribed Document [facility] [place] Family Medicine [address] [place] [address] ProviderErika MD [address] [place] [address] Social History Tobacco Use Types [...]
--- OUTSIDE RECORDS SUMMARY | 2025-06-10 13:19 | XMS_ITS | Encounter Summary ---
Author Organization [employer] ([place], [place], [place], [place]) Address [address] [place] [address] Care Team Providers Care Metalizing Machine Operator Automatic Name Role Phone Unavailable Primary Care Provider Unavailabl e Encounter Details Date Type Department Care Team (Late st Contact Info) Description 11/17/2018 Transcribed Document [facility] [place] [address] [place] [address] ProviderErika MD [address] [place], [place] [id number] Social History Tobacco Use Types Packs/Day Years [...] 1940 Associated Diagnoses: CAD (coronary artery disease), [place] coronary artery; Thrombocytopenia; Coronary artery disease; HTN [...] Palpable bilateral DP pulses. Integumentary: Warm, Dry, [place]. Neurologic: Not alert. Review / Management Results review: NOV 17 03:12 142 110 20 / H 115 4.1 25 1.10 \ NOV 17 03:12 \ L 10.7 / H 15.3 L 112 / L 32.1 \ Blood Gases (Current Encounter/Past 24 Hours) pH Art 7.48 [place] 11/17/2018 05:17 pCO2 Art 31.2 LOW 11/17/2018 [...] 43.0 11/16/2018 12:06 pO2 Art POC 433.0 [place] 11/16/2018 12:06 HCO3 Art POC 28.5 [place] 11/16/2018 12:06 tCO2 Art POC 30.0 LA 11/16/2018 12:06 BE Art POC 4.0 [place] 11/16/2018 12:06 sO2 Art POC >99.9 [place] 11/16/2018 12:06 ABG Num of Draw Attempts 1 11/17/2018 05:17 Coagulation Results (Current Encounter/Past 24 Hours) No Coagulation Results Found (Past 24 Hours) . Impression and Plan Plan: 11/17/18 -POD#1 -MTs left in place secondary to drainage EF 55-60% per echo 11/16/18 DVT Prophylaxis: SCDs Diagnosis CAD (coronary artery disease), [place] coronary artery - Admitting, Medical. Thrombocytopenia - [...]
--- OUTSIDE RECORDS SUMMARY | 2025-06-10 13:19 | XMS_ITS | Encounter Summary ---
Author Organization [employer] ([place], [place], [place], [place]) Address [address] [place] [address] Care Team Providers Care Welcome Center Agent Name Role Phone Unavailable Primary Care Provider Unavailabl e Encounter Details Date Type Department Care Team (Late st Contact Info) Description 11/30/2018 Transcribed Document [facility] [place] [address] [place] [address] ProviderErika MD [address] [place] [address] Social History Tobacco Use Types [...]
--- OUTSIDE RECORDS SUMMARY | 2025-06-10 13:19 | XMS_ITS | Encounter Summary ---
Author Organization [employer] ([place], [place], [place], [place]) Address [address] [place] [address] Care Team Providers Care Internet Marketing Specialist Name Role Phone Unavailable Primary Care Provider Unavailabl e Encounter Details Date Type Department Care Team (Late st Contact Info) Description 11/29/2018 Transcribed Document [facility] [place] Family Medicine [address] [place] [address] ProviderErika MD [address] [place] [address] Social History Tobacco Use Types [...] Ladan /Sex: 1940 Male Med Rec #: [id number] Physician: JULIO CESAR CARVALHO MD-[facility] Financial #: [id number] Pt. Type: I Room/Bed: 330/1 Admit/Disch: 11/16/18 [...] Endo PreOp Case Times Audit 11/29/18 14:12:33 Franchise Sales Manager: ASHLEYSTAPLETON Modifier: ASHLEYSTAPLETON <+> 1 Patient Out of Preop <+> 1 Patient Ready for Surgery Finalized By: Gem Osborne Rn Document Signatures Signed By: Gem Osborne Rn 11/29/18 14:12 documented in this encounter Plan of Treatment Not on file documented as of this encounter Visit Diagnoses Not on filedocumented in this encounter
--- OUTSIDE RECORDS SUMMARY | 2025-06-10 13:19 | XMS_ITS | Encounter Summary ---
Author Organization [employer] ([place], [place], [place], [place]) Address [address] [place] [address] Care Team Providers Care Ham Clerk Name Role Phone Unavailable Primary Care Provider Unavailabl e Encounter Details Date Type Department Care Team (Late st Contact Info) Description 11/17/2018 Transcribed Document [facility] [place] [address] [place] [address] ProviderErika MD [address] [place] [address] Social History Tobacco Use Types [...]
--- OUTSIDE RECORDS SUMMARY | 2025-06-10 13:20 | XMS_ITS | Encounter Summary ---
Author Organization [employer] ([place], [place], [place], [place]) Address [address] [place] [address] Care Team Providers Care Office System Analyst Name Role Phone Unavailable Primary Care Provider Unavailabl e Encounter Details Date Type Department Care Team (Late st Contact Info) Description 11/18/2018 Transcribed Document [facility] [place] [address] [place] [address] ProviderErika MD [address] [place] [address] Social History Tobacco Use [...] on Osmolite 1.5 @ 50m/hr + 1 [id number] daily advancing toward goal of 60ml/hr + 1 [id number] daily. No AUTO BATTERY BUILDER consult noted, discussed if any concern for [...] midline incision; chest tube 370ml GI: LBM LEASING PROFESSIONAL (admit 11/16), hypoactive BS, +NGT Nutrition Support: Osmolite 1.5 @ 60ml/hr + 1 [id number] daily, water flush 10ml q1hr HT: 185cm (6'1) ADMIT WT: 79kg/174# Current Wt: 81.6kg (11/17), 82.4kg (11/18) BMI: 23 IBW: 79kg/100% EST NEEDS: 0291-3532 kcal (25-30kcal/kg), 95g pro (1.2g/kg) Bev Olvera [...] TF: Osmolite 1.5 @ 60ml/hr + 1 [id number] daily (provides 2040 kcal, 98g pro). FW per MD. goal: provide nutrition, meet est needs 2. As medically able, recommend swallow eval if appropriate; rec (cardiac) w/consistencies per AUTO BATTERY BUILDER. RD will monitor need for supplement. goal: [...]
--- OUTSIDE RECORDS SUMMARY | 2025-06-10 13:20 | XMS_ITS | Encounter Summary ---
Author Organization [employer] ([place], [place], [place], [place]) Address [address] [place] [address] Care Team Providers Care Button Spindler Name Role Phone Unavailable Primary Care Provider Unavailabl e Encounter Details Date Type Department Care Team (Late st Contact Info) Description 11/25/2018 Transcribed Document [facility] [place] [address] [place] [address] ProviderErika MD [address] [place] [address] Social History Tobacco Use [...]
--- OUTSIDE RECORDS SUMMARY | 2025-06-10 13:20 | XMS_ITS | Encounter Summary ---
Author Organization [employer] ([place], [place], [place], [place]) Address [address] [place] [address] Care Team Providers Care Health Services Director Name Role Phone Unavailable Primary Care Provider Unavailabl e Encounter Details Date Type Department Care Team (Late st Contact Info) Description 11/25/2018 Transcribed Document [facility] [place] [address] [place] [address] ProviderErika MD [address] [place] [address] Social History Tobacco Use Types [...] Tab, Oral, At Bedtime saliva substitutes, 1 [place], Buccal, Q2H, PRN Senokot, 17.2 mg= 2 Tab, Oral, BID warfarin, 5 mg= 1 Tab, Oral, Daily Zofran, 4 mg= 2 mL, IV Push, Q4H, PRN Electronically signed by Parveen, [facility] Conversion Supervisor Printing Shop Cerner at 12/08/2022 12:38 PM CDT documented in this encounter Plan of Treatment Not on file documented as of this encounter Visit Diagnoses Not on filedocumented in this encounter
--- OUTSIDE RECORDS SUMMARY | 2025-06-10 13:20 | XMS_ITS | Encounter Summary ---
Author Organization [employer] ([place], [place], [place], [place]) Address [address] [place] [address] Care Team Providers Care Survey Research Teacher Name Role Phone Unavailable Primary Care Provider Unavailabl e Encounter Details Date Type Department Care Team (Late st Contact Info) Description 11/25/2018 Transcribed Document [facility] [place] [address] [place] [address] ProviderErika MD [address] [place] [address] Social History Tobacco Use Types [...] at goal rate. Did have BM yesterday. WORKFORCE CONSULTANT okayed pt for po diet this am- [...] (11/24) BMI: 23 IBW: 79kg/100% EST NEEDS: 3841-6669 kcal (25-30kcal/kg), 95g pro (1.2g/kg) DAVION GREEN [...] EDT Electronically signed by Christina Saini Conversion Railroad Wheels And Axle Inspector Cerner at 12/08/2022 12:13 PM CDT documented in this encounter Plan of Treatment Not on file documented as of this encounter Visit Diagnoses Not on filedocumented in this encounter
--- OUTSIDE RECORDS SUMMARY | 2025-06-10 13:20 | XMS_ITS | Encounter Summary ---
Author Organization [employer] ([place], [place], [place], [place]) Address [address] [place] [address] Care Team Providers Care Top Printing Press Operator Name Role Phone Unavailable Primary Care Provider Unavailabl e Encounter Details Date Type Department Care Team (Late st Contact Info) Description 11/25/2018 Transcribed Document [facility] [place] [address] [place] [address] ProviderErika MD [address] [place] [address] Social History Tobacco Use Types [...] Performed On: 11/25/2018 15:07 EDT by SENIA QIUNTANA PTA Attempt to Treat Unable to Treat [...]
--- OUTSIDE RECORDS SUMMARY | 2025-06-10 13:20 | XMS_ITS | Encounter Summary ---
Author Organization [employer] ([place], [place], [place], [place]) Address [address] [place] [address] Care Team Providers Care Analytical Chemistry Teacher Name Role Phone Unavailable Primary Care Provider Unavailabl e Encounter Details Date Type Department Care Team (Late st Contact Info) Description 11/18/2018 Transcribed Document [facility] Cardiology [address] [place] [address] Lc Armendariz MD [address] [facility] [address] [place] [address] Social History Tobacco Use Types [...] mg, Oral, At Bedtime saliva substitutes: 1 [place], Buccal, Q2H, PRN: Other (See Comment) sodium [...] of motion, Normal strength. Integumentary: Warm, Dry, [place]. Neurologic: Alert, Oriented. Psychiatric: Cooperative, Appropriate mood & affect. Results Review NOV 18 03:37 138 106 19 / H 200 3.8 27 0.90 \ NOV 18 03:37 \ L 10.2 / H 17.7 L 103 / L 30.3 \ Cardiac Markers (Current Encounter/Past 24 Hours) No Cardiac Marker Results Found (Past 24 Hours) Radiology Results (Last 48 hours) [id number] -- 11/16/2018 06:45 CR Chest 1 Vw Portable (11/16/2018 12:55) Result: PORTABLE CHEST HISTORY: Pneumothorax.COMPARISON: 1 day prior.FINDINGS: The heart is stable in size. The patient is status post mediansternotomy. The endotracheal tube is in the mid thoracic trachea. Anasogastric tube extends below the diaphragm. Left-sided Huron-Ganzcatheter tip is in the left main pulmonary [...] day.FINDINGS: The heart is normal in size. Huron-Jovanna catheter tips in theleft pulmonary artery. There [...]
--- OUTSIDE RECORDS SUMMARY | 2025-06-10 13:20 | XMS_ITS | Encounter Summary ---
Author Organization [employer] ([place], [place], [place], [place]) Address [address] [place] [address] Care Team Providers Care Regulatory Assistant Name Role Phone Unavailable Primary Care Provider Unavailabl e Encounter Details Date Type Department Care Team (Late st Contact Info) Description 11/25/2018 Transcribed Document [facility] [place] [address] [place] [address] ProviderErika MD [address] [place] [address] Social History Tobacco Use [...]
--- OUTSIDE RECORDS SUMMARY | 2025-06-10 13:20 | XMS_ITS | Encounter Summary ---
Author Organization [employer] ([place], [place], [place], [place]) Address [address] [place] [address] Care Team Providers Care Vice President Of Consulting Services Name Role Phone Unavailable Primary Care Provider Unavailabl e Encounter Details Date Type Department Care Team (Late st Contact Info) Description 11/25/2018 Transcribed Document [facility] [place] Family Medicine [address] [place] [address] ProviderErika MD [address] [place] [address] Social History Tobacco Use Types [...] On: 11/25/2018 12:20 EDT by THERESA CAZARES [facility] Clinical Interventions Heparin Per Weight-Based Protocol : Yes THERESA CAZARES [facility] - 11/25/2018 12:20 EDT Heparin Per Weight-Based [...] 11/25/2018 12:20 EDT Electronically signed by Parveen [facility] Conversion Business Operations Consultant Cerner at 12/08/2022 12:35 PM CDT documented in this encounter Plan of Treatment Not on file documented as of this encounter Visit Diagnoses Not on filedocumented in this encounter
--- OUTSIDE RECORDS SUMMARY | 2025-06-10 13:20 | XMS_ITS | Encounter Summary ---
Author Organization [employer] ([place], [place], [place], [place]) Address [address] [place] [address] Care Team Providers Care Halal Butcher Name Role Phone Unavailable Primary Care Provider Unavailabl e Encounter Details Date Type Department Care Team (Late st Contact Info) Description 11/18/2018 Transcribed Document [facility] [place] [address] [place] [address] ProviderErika MD [address] [place] [address] Social History Tobacco Use Types [...]
--- OUTSIDE RECORDS SUMMARY | 2025-06-10 13:20 | XMS_ITS | Clinical Summary ---
Author Organization [employer] ([place], [place], [place], [place]) Address [address] [place] [address] Care Team Providers Care Postal Clerk Name Role Phone Unavailable Primary Care [...]
--- OUTSIDE RECORDS SUMMARY | 2025-06-10 13:20 | XMS_ITS | Encounter Summary ---
Author Organization [employer] ([place], [place], [place], [place]) Address [address] [place] [address] Care Team Providers Care Financial Services Auditor Name Role Phone Unavailable Primary Care Provider Unavailabl e Encounter Details Date Type Department Care Team (Late st Contact Info) Description 11/18/2018 Transcribed Document [facility] [place] Family Medicine [address] [place] [address] ProviderErika MD [address] [place], [place] [id number] Social History Tobacco Use Types Packs/Day Years [...] 1940 Associated Diagnoses: CAD (coronary artery disease), [place] coronary artery; Thrombocytopenia; Coronary artery disease; HTN [...] S1, S2, No edema. Integumentary: Warm, Dry, Ambia, incision is C/D/I. Neurologic: Alert, he did [...] Prophylaxis: SCDs Diagnosis CAD (coronary artery disease), [place] coronary artery - Admitting, Medical. Thrombocytopenia - Working, Medical. Coronary artery disease - Discharge, Medical. HTN (hypertension) - Pre-Op Diagnosis, Medical. Hypothyroidism - Pre-Op Diagnosis, Medical. Aortic insufficiency - Admitting, Medical. Aortic insufficiency - Discharge, Medical. RLS (restless legs syndrome) - Pre-Op Diagnosis, Medical. Thoracic ascending aortic aneurysm - Admitting, Medical. Thoracic ascending aortic aneurysm - Discharge, Medical. Electronically signed by Parveen, [facility] Conversion Autism Motor Specialist Cerner at 12/08/2022 12:19 PM CDT documented in this encounter Plan of Treatment Not on file documented as of this encounter Visit Diagnoses Not on filedocumented in this encounter
--- OUTSIDE RECORDS SUMMARY | 2025-06-10 13:20 | XMS_ITS | Encounter Summary ---
Author Organization [employer] ([place], [place], [place], [place]) Address [address] [place] [address] Care Team Providers Care Behavioral Health Case Manager Name Role Phone Unavailable Primary Care Provider Unavailabl e Encounter Details Date Type Department Care Team (Late st Contact Info) Description 11/18/2018 Transcribed Document [facility] [place] [address] [place] [address] ProviderErika MD [address] [place] [address] Social History Tobacco Use Types Packs/Day Years Used Date Smoking Tobacco: Never Assessed Sex and Gender Information Value Date Recorded Sex Assigned at Not on file Legal Sex Male 5:03 PM CDT Gender Identity Not on file Sexual Orientation Not on file documented as of this encounter Miscellaneous Notes * Cerner Conversion Note - Historical ProviderMD - 11/18/2018 2:00 AM CDT Substance Abuse Specialist Details Entered On: 11/18/2018 4:41 EDT Performed [...] EDT Electronically signed by Christina Saini Conversion National Flatbed Truck Driver Cerner at 12/08/2022 12:31 PM CDT documented in this encounter Plan of Treatment Not on file documented as of this encounter Visit Diagnoses Not on filedocumented in this encounter
--- OUTSIDE RECORDS SUMMARY | 2025-06-10 13:20 | XMS_ITS | Clinical Summary ---
Author Organization [facility] Address [address] [place] [address] Care Team Providers Care Geological Survey Field Assistant Name Role Phone Clifford Horner MD Primary Care Provider [phone] Allergies No known active allergies Medications dutasteride [...] r (1 - 1-dose 75+ series) 2014 [id number] Vaccine (3 - Moderna risk series) 02/11/2021 [...] complete this topic Insurance MEDICARE Care Teams Geological Survey Field Assistant Relationship Specialty Start Date End Date Clifford Horner MD [address] [facility] [address] [place] [address] PCP - General 07/14/24
--- OUTSIDE RECORDS SUMMARY | 2025-06-10 13:20 | XMS_ITS | Encounter Summary ---
Author Organization [facility] Address [address] [place] [address] Care Team Providers Care Tenant Coordinator Name Role Phone Sanjuana Valdez APRN Primary Care Provider [phone] Clifford Horner MD Primary Care Provider [phone] Encounter Details Date Type Department Care Team (Late st Contact Info) Description 06/02/2022 [facility] Community Practice [address] [place] [address] Joanna Zamora, DPM [address] [place], [place] [id number] Contracture of left ankle (Primary Dx); Contracture [...] foot documented in this encounter Care Teams Tenant Coordinator Relationship Specialty Start Date End Date Sanjuana Valdez APRN [address] [place] [address] PCP - General 01/04/21 07/13/24 Clifford Horner MD [address] [place] [address] PCP - General 07/14/24 documented as of this encounter
--- OUTSIDE RECORDS SUMMARY | 2025-06-10 13:20 | XMS_ITS | Encounter Summary ---
Author Organization [employer] ([place], [place], [place], [place]) Address [address] [place] [address] Care Team Providers Care Integrity Manager Name Role Phone Unavailable Primary Care Provider Unavailabl e Encounter Details Date Type Department Care Team (Late st Contact Info) Description 11/18/2018 Transcribed Document [facility] [place] [address] [place] [address] ProviderErika MD [address] [place] [address] Social History Tobacco Use Types [...] Initial Visit : Yes Referred by : Blending Machine Feeder initiated Referral Reason Comment : Post-op visit Ministry Provided to : Patient, Family/Significant other Rastafari Preference : Anglican MARCOS GASCA P - 11/18/2018 10:51 EDT [...] other supported, Relationship strengths identified Spiritual and Rastafari : Prayer shared, Spiritual/Rastafari support provided MARCOS GASCA P - 11/18/2018 10:51 EDT Electronically signed by Parveen, [facility] Conversion Instructor Tap Dancing Cerner at 12/08/2022 12:34 PM CDT documented in this encounter Plan of Treatment Not on file documented as of this encounter Visit Diagnoses Not on filedocumented in this encounter
--- OUTSIDE RECORDS SUMMARY | 2025-06-10 13:20 | XMS_ITS | Encounter Summary ---
Author Organization [employer] ([place], [place], [place], [place]) Address [address] [place] [address] Care Team Providers Care Shop Steward Name Role Phone Unavailable Primary Care Provider Unavailabl e Encounter Details Date Type Department Care Team (Late st Contact Info) Description 11/18/2018 Transcribed Document [facility] [address] [place] [address] ProviderErika MD [address] [place] [address] Social History Tobacco Use Types [...] Source : Measured Height Entry Format : [place] Height, Feet : 6 ft Height, Inches : 1 Inch Clinical Height : 185.42 cm Body Surface Area (BSA), Routine : 2.07 m2 Body Mass Index (BMI), Routine : 23.97 kg/m2 DANYA GILES RN - 11/18/2018 4:42 EDT Electronically signed by Christina Saini Conversion Presidential Helicopter Crew Chief Cerner at 12/08/2022 12:30 PM CDT documented in this encounter Plan of Treatment Not on file documented as of this encounter Visit Diagnoses Not on filedocumented in this encounter
--- OUTSIDE RECORDS SUMMARY | 2025-06-10 13:21 | XMS_ITS | Encounter Summary ---
Author Organization [employer] ([place], [place], [place], [place]) Address [address] [place] [address] Care Team Providers Care Oil Sales And Service Rep Name Role Phone Unavailable Primary Care Provider Unavailabl e Encounter Details Date Type Department Care Team (Late st Contact Info) Description 11/23/2018 Transcribed Document [facility] [place] Family Medicine [address] [place] [address] ProviderErika MD [address] [place] [address] Social History Tobacco Use Types [...] EDT Electronically signed by Christina Saini Conversion Electronics Maintenance Technician Cerner at 12/08/2022 12:29 PM CDT documented in this encounter Plan of Treatment Not on file documented as of this encounter Visit Diagnoses Not on filedocumented in this encounter
--- OUTSIDE RECORDS SUMMARY | 2025-06-10 13:21 | XMS_ITS | Encounter Summary ---
Author Organization [employer] ([place], [place], [place], [place]) Address [address] [place] [address] Care Team Providers Care Conference Services Director Name Role Phone Unavailable Primary Care Provider Unavailabl e Encounter Details Date Type Department Care Team (Late st Contact Info) Description 12/01/2018 Transcribed Document [facility] [facility] [place] [address] ProviderErika MD [address] [place] [address] Social History Tobacco Use Types [...] MD - 12/01/2018 1:32 PM CDT [address] [address] Patient Copy Patient Information: Name: DOTTIE VILLASENOR Current Date: 12/01/2018 13:32:25 : 1940 Patient Address: [address] [place] [id number] Patient Attending Physician: JULIO CESAR CARVALHO MD-CAT Primary Care Provider: DEMETRICE ARMIJO NP-[facility] Primary Care Provider Discharge Diagnosis: Acute blood loss anemia; Aortic insufficiency; Coronary artery disease; GI bleed; LUE DVT (deep venous thrombosis); Right MCA CVA (cerebral vascular accident); Thoracic ascending aortic aneurysm Weight on Admission: 174 lb, 5 oz Weight at Discharge: 159 lb Comment: Follow-up Instructions: With: Address: When: DEMETRICE ARMIJO [address] [place], [place] [id number] Within 1 week Comments: When you are discharged from [facility] please call to make a 1 week hospital follow-up appointment. With: Address: When: JULIO CESAR DEY [address] [place] [address] Business (1) 1:15 PM With: Address: When: JULIO CESAR CARVALHO [address] [place] [address] Business (1) Within 2 weeks With: Address: When: JOHN BOWEN [address], [address] [place] [address] Business (1) Within 6 weeks Comments: Patient should call for a follow up appointment with [facility] Neurology. Discharge Instructions: Driving after Discharge: Do not drive, Other: No driving or operating heavy machinery until released by a physician. Community Services: Outpt Cardiac Rehab [facility] [phone] They will call pt w/ appt time. [...] 09/17/2005 Document Revised: 01/15/2017 Document Reviewed: 02/10/2014 [employer] Interactive Patient Education ? 2017 [employer] CIGARETTE SMOKING: The facts are clear, cigarette smoking will shorten your life. Smoking can cause many illnesses along the way. As a healthcare provider, we recommend that you stop smoking. Assistance with quitting is available by contacting 2-314-MHLH-NOW. This is a free resource providing counseling, [...] Be sure to sign up for the [facility] patient portal, which gives you 16/03 access to your medical information ??? including these discharge instructions ??? using your computer, smartphone, or tablet. Just go to [employer] to get started. Questions? Call . [facility] would like to thank you for allowing us to assist you with your healthcare needs. AHMILTON Jarvis ROBERT H, (or motor vehicle representative) have received the above patient education materials/instructions and have verbalized understanding: Patient Signature _ Date/Time Patient Shelf Stocker Signature (if needed) Date/Time Clinician/Hospital Shelf Stocker Signature (if needed) Date/Time documented in this encounter Plan of Treatment Not on file documented as of this encounter Visit Diagnoses Not on filedocumented in this encounter
--- OUTSIDE RECORDS SUMMARY | 2025-06-10 13:21 | XMS_ITS | Encounter Summary ---
Author Organization [employer] ([place], [place], [place], [place]) Address [address] [place] [address] Care Team Providers Care Carpentry Professional Name Role Phone Unavailable Primary Care Provider Unavailabl e Encounter Details Date Type Department Care Team (Late st Contact Info) Description 12/01/2018 Transcribed Document [facility] Family Medicine [address] [place] [address] ProviderErika MD [address] [place] [address] Social History Tobacco Use Types [...] On: 12/01/2018 13:36 EDT by NAIN JARRETT insulation worker Documentation Discharge Date/Time : 12/01/2018 15:13 EDT NAIN JARRETT RN - 12/01/2018 16:34 EDT Patient Disposition, General : Discharge Discharge To : Rehabilitation unit/facility Name of Receiving Facility/Provider : [facility] Mode Of Departure, General Discharge : [...] information provided to patient and discussed at AL. Verbalized understanding. Worker's Compensation Paperwork Completed : NAIN Gomez RN - 12/01/2018 13:36 EDT documented in this encounter Plan of Treatment Not on file documented as of this encounter Visit Diagnoses Not on filedocumented in this encounter
--- OUTSIDE RECORDS SUMMARY | 2025-06-10 13:21 | XMS_ITS | Encounter Summary ---
Author Organization [employer] ([place], [place], [place], [place]) Address [address] [place] [address] Care Team Providers Care Tobacco Warehouse Agent Name Role Phone Unavailable Primary Care Provider Unavailabl e Encounter Details Date Type Department Care Team (Late st Contact Info) Description 12/01/2018 Transcribed Document [facility] [place] Family Medicine [address] [place] [address] ProviderErika MD [address] [place] [...]
--- OUTSIDE RECORDS SUMMARY | 2025-06-10 13:21 | XMS_ITS | Encounter Summary ---
Author Organization [employer] ([place], [place], [place], [place]) Address [address] [place] [address] Care Team Providers Care Plasma Table Operator Name Role Phone Unavailable Primary Care Provider Unavailabl e Encounter Details Date Type Department Care Team (Late st Contact Info) Description 11/23/2018 Transcribed Document [facility] [place] [address] [place] [address] ProviderErika MD [address] [place] [address] Social History Tobacco Use Types [...] Tab, Oral, At Bedtime saliva substitutes, 1 [place], Buccal, Q2H, PRN Senokot, 17.2 mg= 2 Tab, Oral, BID Zofran, 4 mg= 2 mL, IV Push, Q4H, PRN Electronically signed by Parveen, [facility] Conversion Gerontological Nurse Practitioner Cerner at 12/08/2022 12:26 PM CDT documented in this encounter Plan of Treatment Not on file documented as of this encounter Visit Diagnoses Not on filedocumented in this encounter
--- OUTSIDE RECORDS SUMMARY | 2025-06-10 13:21 | XMS_ITS | Encounter Summary ---
Author Organization [employer] ([place], [place], [place], [place]) Address [address] [place] [address] Care Team Providers Care Account Management Specialist Name Role Phone Unavailable Primary Care Provider Unavailabl e Encounter Details Date Type Department Care Team (Late st Contact Info) Description 12/01/2018 Transcribed Document [facility] [place] Family Medicine [address] [place] [address] ProviderErika MD [address] [place] [address] Social History Tobacco Use Types [...] Jose MD - 12/01/2018 1:54 PM CDT [facility] [place] [address] DOTTIE VILLASENOR :1940 Visit Time:11/16/2018 Your Visit Summary Your Care Team Admitting Physician - JULIO CESAR CARVALHO MD-CAT Attending Physician - JULIO CESAR CARVALHO MD-YADIRA Primary Care Physician - DEMETRICE ARMIJO NP-FAM Referring Physician - DEMETRICE ARMIJO NP-FAM Your Diagnosis Acute blood loss anemia Aortic insufficiency, Aortic insufficiency CAD (coronary artery disease), [place] coronary artery, Coronary artery disease GI bleed [...] Your Care Team [facility]-Stroke [facility] RN report #[phone] DC Summary #[phone] You may shower. Make sure your back [...] IF you have a fever greater than [id number], call the surgeon. DO NOT drive for [...] Where: [address] [place] [address]- Business (1) Follow Up with JULIO CESAR CARVALHO When 12/15/2018 12:15 PM EDT Where: [address] [place] [address] Business (1) Follow Up with DEMETRICE ARMIJO When Within 1 week Comments When you are discharged from [facility] please call to make a 1 week hospital follow-up appointment. Where: [address] [place] [address]- Follow Up with JOHN BOWEN When Within 6 weeks Comments Patient should call for a follow up appointment with [facility] Neurology. Where: [address] [place] [address]- Business (1) Medications What How [...] contain harmful chemicals. FOR MORE INFORMATION ??? [place] Lung Association: www.lung.org ??? [place] Cancer Society: www.cancer.org This information is not intended to replace advice given to you by your health care provider. Make sure you discuss any questions you have with your health care provider. Document Released: 09/17/2005 Document Revised: 12/01/2016 Document Reviewed: 01/30/2014 [employer] Interactive Patient Education ?? 2017 [employer] How to Take Your Blood Pressure [...] 07/23/2009 Document Revised: 08/31/2015 Document Reviewed: 10/05/2014 [employer] Interactive Patient Education ?? 2017 [employer] How to Take a Pulse Your [...] 02/14/2004 Document Revised: 02/27/2017 Document Reviewed: 01/13/2017 [employer] Interactive Patient Education ?? 2017 [employer] Coronary Artery Bypass Grafting, Care After [...] 02/27/2006 Document Revised: 08/31/2015 Document Reviewed: 01/17/2014 [employer] Interactive Patient Education ?? 2017 [employer] Bleeding Precautions When on Anticoagulant Therapy [...] can be dangerous for you. ??? Many jewf-lzd-eljkrtj medicines for pain, colds, or stomach problems [...] provider. Document Released: 07/21/2016 Document Reviewed: 07/21/2016 [employer] Interactive Patient Education ?? 2017 [employer]. Atrial Fibrillation Introduction Atrial fibrillation is a [...] Follow these instructions at home: ??? Take zmuh-kta-owesjgt and prescription medicines only as told by [...] 09/17/2005 Document Revised: 01/15/2017 Document Reviewed: 02/10/2014 [employer] Interactive Patient Education ?? 2017 [employer]. misoprostol (reji ramos) [facility] What is the most important information I [...] may report side effects to FDA at 4-163-XYF-9483. What other drugs will affect misoprostol? Other drugs may interact with misoprostol, including prescription and pdtz-lzk-pmhqdxj medicines, vitamins, and herbal products. Tell each [...] to ensure that the information provided by [employer]. ('[employer]') is accurate, up-to-date, and complete, but no guarantee is made to that effect. Drug information contained herein may be time sensitive. [employer] information has been compiled for use by healthcare practitioners and consumers in the [place] and therefore [employer] does not warrant that uses outside of the [place] are appropriate, unless specifically indicated otherwise. [employer] drug information does not endorse drugs, diagnose patients or recommend therapy. [employer] drug information is an informational resource designed [...] effective or appropriate for any given patient. [employer] does not assume any responsibility for any aspect of healthcare administered with the aid of information [employer] provides. The information contained herein is not intended to cover all possible uses, directions, precautions, warnings, drug interactions, allergic reactions, or adverse effects. If you have questions about the drugs you are taking, check with your doctor, nurse or pharmacist. Copyright 1105-8627 [employer]. Version: 8.01. Revision Date: 03/02/2014.sucralfate (oral) (angelica [...] may report side effects to FDA at 6-897-KYX-1402. What other drugs will affect sucralfate? Sucralfate can make it harder for your body to absorb other medications you take by mouth. Avoid taking any other medications within 2 hours before or after you take sucralfate. Other drugs may interact with sucralfate, including prescription and wveu-vte-ciiwcvo medicines, vitamins, and herbal products. Tell each [...] to ensure that the information provided by [employer] ('[employer]') is accurate, up-to-date, and complete, but no guarantee is made to that effect. Drug information contained herein may be time sensitive. [employer] information has been compiled for use by healthcare practitioners and consumers in the [place] and therefore [employer] does not warrant that uses outside of the [place] are appropriate, unless specifically indicated otherwise. [employer] drug information does not endorse drugs, diagnose patients or recommend therapy. [employer] drug information is an informational resource designed [...] effective or appropriate for any given patient. [employer] does not assume any responsibility for any aspect of healthcare administered with the aid of information [employer] provides. The information contained herein is not intended to cover all possible uses, directions, precautions, warnings, drug interactions, allergic reactions, or adverse effects. If you have questions about the drugs you are taking, check with your doctor, nurse or pharmacist. Copyright 0221-3543 [employer]. Version: 8.01. Revision Date: 01/03/2013.sucralfate (oral) (angelica [...] may report side effects to FDA at 6-757-JHX-5614. What other drugs will affect sucralfate? Sucralfate can make it harder for your body to absorb other medications you take by mouth. Avoid taking any other medications within 2 hours before or after you take sucralfate. Other drugs may interact with sucralfate, including prescription and nwkf-ziz-bevjsno medicines, vitamins, and herbal products. Tell each [...] to ensure that the information provided by [employer] ('[employer]') is accurate, up-to-date, and complete, but no guarantee is made to that effect. Drug information contained herein may be time sensitive. [employer] information has been compiled for use by healthcare practitioners and consumers in the [place] and therefore [employer] does not warrant that uses outside of the [place] are appropriate, unless specifically indicated otherwise. [employer] drug information does not endorse drugs, diagnose patients or recommend therapy. [employer] drug information is an informational resource designed [...] effective or appropriate for any given patient. [employer] does not assume any responsibility for any aspect of healthcare administered with the aid of information [employer] provides. The information contained herein is not intended to cover all possible uses, directions, precautions, warnings, drug interactions, allergic reactions, or adverse effects. If you have questions about the drugs you are taking, check with your doctor, nurse or pharmacist. Copyright 7803-1115 [employer]. Version: 8.01. Revision Date: 01/03/2013. Emergency Awareness [...] Assistance with quitting is available by contacting 4-818-XGCGBungolowNOW. This is a free resource providing counseling, [...]
--- OUTSIDE RECORDS SUMMARY | 2025-06-10 13:21 | XMS_ITS | Encounter Summary ---
Author Organization [employer] ([place], [place], [place], [place]) Address [address] [place] [address] Care Team Providers Care Investigation Division Sergeant Name Role Phone Unavailable Primary Care Provider Unavailabl e Encounter Details Date Type Department Care Team (Late st Contact Info) Description 11/23/2018 Transcribed Document [facility] [place] [address] [place] [address] ProviderErkia MD [address] [place] [address] Social History Tobacco Use Types [...]
--- OUTSIDE RECORDS SUMMARY | 2025-06-10 13:21 | XMS_ITS | Encounter Summary ---
Author Organization [employer] ([place], [place], [place], [place]) Address [address] [place] [address] Care Team Providers Care Gin Operator Name Role Phone Unavailable Primary Care Provider Unavailabl e Encounter Details Date Type Department Care Team (Late st Contact Info) Description 11/23/2018 Transcribed Document [facility] [place] [address] [place] [address] ProviderErika MD [address] [place], [place] [id number] Social History Tobacco Use Types Packs/Day Years [...] 1940 Associated Diagnoses: CAD (coronary artery disease), [place] coronary artery; Thrombocytopenia; Coronary artery disease; HTN [...] S1, S2, No edema. Integumentary: Warm, Dry, [place], incision is C/D/I. Neurologic: Alert, left [...] of discharge- MELLISSA has sent information to [facility] -Transfer to [facility] EF 55-60% per echo 11/16/18 DVT Prophylaxis: SCDs Diagnosis CAD (coronary artery disease), [place] coronary artery - Admitting, Medical. Thrombocytopenia - [...]
--- OUTSIDE RECORDS SUMMARY | 2025-06-10 13:21 | XMS_ITS | Encounter Summary ---
Author Organization [employer] ([place], [place], [place]) Address [address] [place] [address] Care Team Providers Care Auto Mechanic Supervisor Name Role Phone Unavailable Primary Care Provider Unavailabl e Encounter Details Date Type Department Care Team (Late st Contact Info) Description 12/01/2018 Transcribed Document [facility] [place] Family Medicine [address] [place] [address] ProviderErika MD [address] [place] [address] Social History Tobacco Use Types [...] EDT Electronically signed by Christina Saini Conversion Sales And Production Manager Cerner at 12/08/2022 12:10 PM CDT documented in this encounter Plan of Treatment Not on file documented as of this encounter Visit Diagnoses Not on filedocumented in this encounter
--- OUTSIDE RECORDS SUMMARY | 2025-06-10 13:21 | XMS_ITS | Encounter Summary ---
Author Organization [employer] ([place], [place], [place], [place]) Address [address] [place] [address] Care Team Providers Care Personal Lines Underwriter Name Role Phone Unavailable Primary Care Provider Unavailabl e Encounter Details Date Type Department Care Team (Late st Contact Info) Description 11/25/2018 Transcribed Document [place] [facility] [address] [place] [address] ProviderErika MD [address] [place], [place] [id number] Social History Tobacco Use Types Packs/Day Years [...] 1940 Associated Diagnoses: CAD (coronary artery disease), [place] coronary artery; Thrombocytopenia; Coronary artery disease; [...] left upper extremity swelling. Integumentary: Warm, Dry, [place], incision is C/D/I. Neurologic: Alert, left sided [...] CM has sent information to [facility] -Transfer to [facility] 11/24/18 -POD#8 -Awaiting transfer to [facility] -Awaiting response from [facility] 11/25/18 -left upper extremity venous doppler - doppler this am positive for LUE DVT - will start coumadin and heparin bridge -awaiting [facility] EF 55-60% per echo 11/16/18 DVT Prophylaxis: SCDs Diagnosis CAD (coronary artery disease), [place] coronary artery - Admitting, Medical. Thrombocytopenia [...]
--- OUTSIDE RECORDS SUMMARY | 2025-06-10 13:21 | XMS_ITS | Encounter Summary ---
Author Organization [employer] ([place], [place], [place], [place]) Address [address] [place] [address] Care Team Providers Care Architecture Technician Name Role Phone Unavailable Primary Care Provider Unavailabl e Encounter Details Date Type Department Care Team (Late st Contact Info) Description 11/25/2018 Transcribed Document [facility] [place] Family Medicine [address] [place] [address] ProviderErika MD [address] [place] [address] Social History Tobacco Use [...]
--- OUTSIDE RECORDS SUMMARY | 2025-06-10 13:21 | XMS_ITS | Encounter Summary ---
Author Organization [employer] ([place], [place], [place], [place]) Address [address] [place] [address] Care Team Providers Care Seed Trucker Name Role Phone Unavailable Primary Care Provider Unavailabl e Encounter Details Date Type Department Care Team (Late st Contact Info) Description 11/23/2018 Transcribed Document [facility] [place] [address] [place] [address] ProviderErika MD [address] [place] [address] Social History Tobacco Use Types Packs/Day Years Used Date Smoking Tobacco: Never Assessed Sex and Gender Information Value Date Recorded Sex Assigned at Not on file Legal Sex Male 5:03 PM CDT Gender Identity Not on file Sexual Orientation Not on file documented as of this encounter Miscellaneous Notes * [employer] Conversion Note - Historical ProviderMD - 11/23/2018 1:36 PM CDT Sports Activities Foul Judge Details Entered On: 11/23/2018 16:44 EDT Performed [...]
--- OUTSIDE RECORDS SUMMARY | 2025-06-10 13:21 | XMS_ITS | Encounter Summary ---
Author Organization [employer] ([place], [place], [place], [place]) Address [address] [place] [address] Care Team Providers Care Gluing Machine Operator Name Role Phone Unavailable Primary Care Provider Unavailabl e Encounter Details Date Type Department Care Team (Late st Contact Info) Description 11/18/2018 Transcribed Document [facility] [place] Family Medicine [address] [place] [address] ProviderErika MD [address] [place], [...]
--- OUTSIDE RECORDS SUMMARY | 2025-06-10 13:21 | XMS_ITS | Encounter Summary ---
Author Organization [employer] ([place], [place], [place], [place]) Address [address] [place] [address] Care Team Providers Care Lunchroom Monitor Name Role Phone Unavailable Primary Care Provider Unavailabl e Encounter Details Date Type Department Care Team (Late st Contact Info) Description 11/30/2018 Transcribed Document [facility] [place] [address] [place] [address] ProviderErika MD [address] [place] [address] Social History Tobacco Use Types Packs/Day Years Used Date Smoking Tobacco: Never Assessed Sex and Gender Information Value Date Recorded Sex Assigned at Not on file Legal Sex Male 5:03 PM CDT Gender Identity Not on file Sexual Orientation Not on file documented as of this encounter Miscellaneous Notes * Cerner Conversion Note - Historical ProviderMD - 11/30/2018 2:00 AM CDT Monitoring Manager Details Entered On: 11/30/2018 0:59 EDT [...]
--- OUTSIDE RECORDS SUMMARY | 2025-06-10 13:21 | XMS_ITS | Encounter Summary ---
Author Organization [employer] ([place], [place], [place], [place]) Address [address] [place] [address] Care Team Providers Care Dental Practitioner Name Role Phone Unavailable Primary Care Provider Unavailabl e Encounter Details Date Type Department Care Team (Late st Contact Info) Description 12/01/2018 Transcribed Document [facility] [place] [address] [place] [address] ProviderErika MD [address] [place] [address] Social History Tobacco Use Types [...] contain harmful chemicals. FOR MORE INFORMATION ??? [employer] Association: www.lung.org ??? [employer] Cancer Society: www.cancer.org This information is not intended to replace advice given to you by your health care provider. Make sure you discuss any questions you have with your health care provider. Document Released: 09/17/2005 Document Revised: 12/01/2016 Document Reviewed: 01/30/2014 Payment plugin Interactive Patient Education ? 2017 [employer] plugin Inc. How to Take Your Blood Pressure [...] 07/23/2009 Document Revised: 08/31/2015 Document Reviewed: 10/05/2014 ElseAkita Interactive Patient Education ? 2017 [employer] Inc. How to Take a Pulse Your [...] 02/14/2004 Document Revised: 02/27/2017 Document Reviewed: 01/13/2017 Payment plugin Interactive Patient Education ? 2017 [employer] plugin Inc. Coronary Artery Bypass Grafting, Care After [...] 02/27/2006 Document Revised: 08/31/2015 Document Reviewed: 01/17/2014 [employer]Akita Interactive Patient Education ? 2017 [employer] Inc. Bleeding Precautions When on Anticoagulant Therapy [...] can be dangerous for you. ??? Many fnye-gqf-sxgfepf medicines for pain, colds, or stomach problems [...] provider. Document Released: 07/21/2016 Document Reviewed: 07/21/2016 Payment plugin Interactive Patient Education ? 2017 [employer] plugin Inc. Atrial Fibrillation Introduction Atrial fibrillation is [...] Follow these instructions at home: ??? Take kiyt-ocy-vcztrtr and prescription medicines only as told by [...] 02/10/2014 Elsevier Interactive Patient Education ? 2017 [employer]ita Inc. documented in this encounter Plan of Treatment Not on file documented as of this encounter Visit Diagnoses Not on filedocumented in this encounter
--- OUTSIDE RECORDS SUMMARY | 2025-06-10 13:21 | XMS_ITS | Clinical Summary ---
Author Organization [facility] Address [address] [place] [phone] Phone Care Team Providers Care Spray Pilot Name Role Phone Svitlana Manley MD Primary [...] 75+ series) 2014 COVID-19 Vaccine ( - 2024-2 6 season) 2025 Influenza Vaccine (#1) 2025 Hepatitis B Vaccine Aged Out No longe r eligible based on patient's age to complete this topic Meningococcal B Vaccine Aged Out No l onger eligible based on patient's age to complete this topic Insurance MEDICARE [place] PART A AND B Care Teams Spray Pilot Relationship Specialty Start Date End Date Svitlana Manley MD [address] [place] [phone] PCP - General Family Medicine 04/10/16
--- OUTSIDE RECORDS SUMMARY | 2025-06-10 13:21 | XMS_ITS | Encounter Summary ---
Author Organization [employer] ([place], [place], [place], [place]) Address [address] [place] [address] Care Team Providers Care Impregnating Tank Operator Name Role Phone Unavailable Primary Care Provider Unavailabl e Encounter Details Date Type Department Care Team (Late st Contact Info) Description 11/23/2018 Transcribed Document [facility] [place] [address] [place] [address] ProviderErika MD [address] [place] [address] Social History Tobacco Use Types [...]
--- OUTSIDE RECORDS SUMMARY | 2025-06-10 13:22 | XMS_ITS | Encounter Summary ---
Author Organization [employer] ([place], [place], [place], [place]) Address [address] [place] [address] Care Team Providers Care Maintenance Dispatcher Name Role Phone Unavailable Primary Care Provider Unavailabl e Encounter Details Date Type Department Care Team (Late st Contact Info) Description 12/01/[address] [facility] [place] Family Medicine [address] [place] [address] ProviderErika MD [address] [place] [address] Social History Tobacco Use Types Packs/Day Years Used Date Smoking Tobacco: Never Assessed Sex and Gender Information Value Date Recorded Sex Assigned at Not on file Legal Sex Male 5:03 PM CDT Gender Identity Not on file Sexual Orientation Not on file documented as of this encounter Miscellaneous Notes * Cerner Conversion Note - Historical ProviderMD - 12/01/2018 2:00 AM CDT C Application Developer Details Entered On: 12/01/2018 0:23 EDT Performed [...]
--- OUTSIDE RECORDS SUMMARY | 2025-06-10 13:22 | XMS_ITS | Encounter Summary ---
Author Organization [employer] ([place], [place], [place], [place]) Address [address] [place] [address] Care Team Providers Care Automotive Detailer Name Role Phone Unavailable Primary Care Provider Unavailabl e Encounter Details Date Type Department Care Team (Late st Contact Info) Description 11/24/2018 Transcribed Document [facility] [place] [address] [place] [address] ProviderErika MD [address] [place] [address] Social History Tobacco Use Types Packs/Day Years Used Date Smoking Tobacco: Never Assessed Sex and Gender Information Value Date Recorded Sex Assigned at Not on file Legal Sex Male 5:03 PM CDT Gender Identity Not on file Sexual Orientation Not on file documented as of this encounter Miscellaneous Notes * Cerner Conversion Note - Historical ProviderMD - 11/24/2018 2:00 AM CDT Custom Decorating Consultant Details Entered On: 11/24/2018 3:36 EDT Performed [...]
--- OUTSIDE RECORDS SUMMARY | 2025-06-10 13:22 | XMS_ITS | Encounter Summary ---
Author Organization [employer] ([place], [place], [place], [place]) Address [address] [place] [address] Care Team Providers Care Urban Anthropologist Name Role Phone Unavailable Primary Care Provider Unavailabl e Encounter Details Date Type Department Care Team (Late st Contact Info) Description 11/24/2018 Transcribed Document [facility] [place] Family Medicine [address] [place] [address] ProviderErika MD [address] [place] [address] Social History Tobacco Use Types [...] Bed scale Routine Weight Entry Format : [place] Routine Weight, Pounds : 180 lb Routine Weight, Ounces : 8 oz Routine Weight Calculation : 82.05 kg Height Source : Measured Height Entry Format : [place] Height, Feet : 6 ft Height, Inches [...]
--- OUTSIDE RECORDS SUMMARY | 2025-06-10 13:22 | XMS_ITS | Encounter Summary ---
Author Organization [employer] ([place], [place], [place], [place]) Address [address] [place] [address] Care Team Providers Care Intensivist Name Role Phone Unavailable Primary Care Provider Unavailabl e Encounter Details Date Type Department Care Team (Late st Contact Info) Description 11/24/2018 Transcribed Document [facility] [place] [address] [place] [address] ProviderErika MD [address] [place] [...] EDT Electronically signed by Christina Saini Conversion Environmental Services Associate Felipe at 12/08/2022 12:12 PM CDT documented in this encounter Plan of Treatment Not on file documented as of this encounter Visit Diagnoses Not on filedocumented in this encounter
--- OUTSIDE RECORDS SUMMARY | 2025-06-10 13:22 | XMS_ITS | Encounter Summary ---
Author Organization [employer] ([place], [place], [place], [place]) Address [address] [place] [address] Care Team Providers Care Stock Broker Name Role Phone Unavailable Primary Care Provider Unavailabl e Encounter Details Date Type Department Care Team (Late st Contact Info) Description 11/30/2018 Transcribed Document [facility] [place] [address] [place] [address] ProviderErika MD [address] [place] [address] Social History Tobacco Use Types [...] Bed scale Routine Weight Entry Format : [place] Routine Weight, Pounds : 164 lb Routine Weight, Ounces : 1 oz Routine Weight Calculation : 74.57 kg Height Source : Measured Height Entry Format : [place] Height, Feet : 6 ft Height, Inches [...]
--- OUTSIDE RECORDS SUMMARY | 2025-06-10 13:22 | XMS_ITS | Encounter Summary ---
Author Organization [employer] ([place], [place], [place], [place]) Address [address] [place] [address] Care Team Providers Care Hydration Plant Operator Name Role Phone Unavailable Primary Care Provider Unavailabl e Encounter Details Date Type Department Care Team (Late st Contact Info) Description 11/24/2018 Transcribed Document [facility] [place] [address] [place] [address] ProviderErika MD [address] [place] [address] Social History Tobacco Use Types [...] On: 11/24/2018 13:21 EDT by ODALYS FAULKNER Rn-Family Support CoordinatorMachine Leather Trimmer Note Care Management Note : 11/24/18 Andra from [facility] called to let me know they started a precert on this pt. CF Care Management Note Report : ODALYS FAULKNER Rn-Family Support Coordinator - 11/22/18 13:56:32 11/22/18 Pt has had a cva. Spoke to his Connie and son Sumeet at the bedside. Pt is lfacid on the left side. Discussed the need for STR and they decided on [facility]. Sent pt info via emaze to [facility]. CF Documentation Status Complete : Yes ODALYS FAULKNER Rn-Family Support Coordinator - 11/24/2018 13:21 EDT Electronically signed by Parveen [facility] Conversion Burn Center Nurse Cerjuju at 12/08/2022 12:31 PM CDT documented in this encounter Plan of Treatment Not on file documented as of this encounter Visit Diagnoses Not on filedocumented in this encounter
--- OUTSIDE RECORDS SUMMARY | 2025-06-10 13:22 | XMS_ITS | Encounter Summary ---
Author Organization [employer] ([place], [place], [place], [place]) Address [address] [place] [address] Care Team Providers Care Ice House Supervisor Name Role Phone Unavailable Primary Care Provider Unavailabl e Encounter Details Date Type Department Care Team (Late st Contact Info) Description 11/24/2018 Transcribed Document [facility] [place] [address] [place] [address] ProviderErika MD [address] [place], [...]
--- OUTSIDE RECORDS SUMMARY | 2025-06-10 13:22 | XMS_ITS | Encounter Summary ---
Author Organization [employer] ([place], [place], [place], [place]) Address [address] [place] [address] Care Team Providers Care Rn Forensic Name Role Phone Unavailable Primary Care Provider Unavailabl e Encounter Details Date Type Department Care Team (Late st Contact Info) Description 12/01/2018 Transcribed Document [facility] [place] Family [place] [address] [place] [address] ProviderErika MD [address] [place] [address] Social History Tobacco Use [...] KISHA BROWER, PT - 12/01/2018 18:30 EDT Care Home Goals Mobility/Bed Mobility LTG PT Grid Goal [...]
--- OUTSIDE RECORDS SUMMARY | 2025-06-10 13:22 | XMS_ITS | Referral Summary ---
Author Organization [employer] ([place], [place], [place], [place]) Address [address] [place] [address] Care Team Providers Care Ic Design Manager Name Role Phone Unavailable Primary Care [...]
--- OUTSIDE RECORDS SUMMARY | 2025-06-10 13:23 | XMS_ITS | Encounter Summary ---
Author Organization [employer] ([place], [place], [place], [place]) Address [address] [place] [address] Care Team Providers Care Tank Wagon Driver Name Role Phone Unavailable Primary Care Provider Unavailabl e Encounter Details Date Type Department Care Team (Late st Contact Info) Description 11/24/2018 Transcribed Document [facility] [place] [address] [place] [address] ProviderErika MD [address] [place], [place] [id number] Social History Tobacco Use Types Packs/Day Years [...] S1, S2, No edema. Integumentary: Warm, Dry, [place], incision is C/D/I. [...] has sent information to [facility] -Transfer to [facility] 11/24/18 -POD#8 -Awaiting transfer to [facility] -Awaiting response from [facility] EF 55-60% per echo 11/16/18 DVT [...] - Discharge, Medical. Electronically signed by Interface, [facility] Conversion Appellate Court Clerk Cerner at 12/08/2022 12:10 PM CDT documented in this encounter Plan of Treatment Not on file documented as of this encounter Visit Diagnoses Not on filedocumented in this encounter
--- OUTSIDE RECORDS SUMMARY | 2025-06-10 13:23 | XMS_ITS | Encounter Summary ---
Author Organization [employer] ([place], [place], [place], [place]) Address [address] [place] [address] Care Team Providers Care Gynecologist Name Role Phone Unavailable Primary Care Provider Unavailabl e Encounter Details Date Type Department Care Team (Late st Contact Info) Description 12/01/2018 Transcribed Document [facility] [place] Family Medicine [address] [place] [address] ProviderErika MD [address] [place] [address] Social History Tobacco Use Types [...]
--- OUTSIDE RECORDS SUMMARY | 2025-06-10 13:23 | XMS_ITS | Encounter Summary ---
Author Organization [employer] ([place], [place], [place], [place]) Address [address] [place] [address] Care Team Providers Care Structures Assembler Name Role Phone Unavailable Primary Care Provider Unavailabl e Encounter Details Date Type Department Care Team (Late st Contact Info) Description 12/01/2018 Transcribed Document [facility] [place] [address] [place] [address] ProviderErika MD [address] [place] [address] Social History Tobacco Use Types [...] and arrangements, chart reviewed, received word from [facility] that bed is available for patient today, on their stroke unit. Patient to be transported via [facility], p/u set for 3pm. RN report to be called to [phone] and discharge summary to be faxed to [phone]. Pt, RN and family aware and in [...] Cardiac Rehab. They prefer to go to [facility]. Phoned them and left msg, sent pt info to them. CM will cont to follow. ANGELA NAIR Pcat Instructor - 11/26/18 11:20:05 Continue to follow for [...] being seen by therapy. Awaiting ANGELA NAIR Pcat Instructor - 11/26/18 11:24:04 Continue to follow for [...] CM will continue to follow. ODALYS FAULKNER, Rn-Reference Investigator - 11/24/18 13:22:19 11/24/18 Andra from [facility] called to let me know they started a precert on this pt. CF ODALYS FAULKNER Rn-Reference Investigator - 11/22/18 13:56:32 11/22/18 Pt has had a cva. Spoke to his Connie and son Sumeet at the bedside. Pt is lfacid on the left side. Discussed the need for STR and they decided on [facility]. Sent pt info via [employer] to [facility]. CF Documentation Status Complete : Yes ANGELA NAIR Social Worker - 12/01/2018 11:24 EDT Discharge Planning Details Home Caregiver Name/Relationship : Connie King [phone] spouse Discharge Placement Needs : Rehabilitation unit/facility [...] Yes Patient/Family Notified : Connie King Spouse [phone] ANGELA NAIR Social Worker - 12/01/2018 11:35 EDT Final Discharge Disposition Note-CM Discharge To Care Management : IRF -Inpatient Rehabilitation Facility-62 Name of Receiving Facility/Provider-CM : [facility] Stroke unit ANGELA NAIR Social Worker - 12/01/2018 11:35 EDT documented in this encounter Plan of Treatment Not on file documented as of this encounter Visit Diagnoses Not on filedocumented in this encounter
--- OUTSIDE RECORDS SUMMARY | 2025-06-10 13:23 | XMS_ITS | Encounter Summary ---
Author Organization [employer] ([place], [place], [place], [place]) Address [address] [place] [address] Care Team Providers Care Corporate Development Intern Name Role Phone Unavailable Primary Care Provider Unavailabl e Encounter Details Date Type Department Care Team (Late st Contact Info) Description 11/24/2018 Transcribed Document [facility] [place] [address] [place] [address] ProviderErika MD [address] [place], [...]
--- OUTSIDE RECORDS SUMMARY | 2025-06-10 13:25 | XMS_ITS | Encounter Summary ---
Author Organization [employer] ([place], [place], [place], [place]) Address [address] [place] [address] Care Team Providers Care Police Booking Officer Name Role Phone Unavailable Primary Care Provider Unavailabl e Encounter Details Date Type Department Care Team (Late st Contact Info) Description 12/01/2018 Transcribed Document [facility] [place] [facility] [place] [address] [place] [address] ProviderErika MD [address] [place], [place] [phone] Social History Tobacco Use Types Packs/Day Years [...] 1940 Associated Diagnoses: CAD (coronary artery disease), [place] coronary artery; Thrombocytopenia; Coronary artery disease; HTN [...] No complaints, transferred back to [facility] yesterday 12/01/18: Up to chair today, hopefully to [facility] today Review of Systems Constitutional: Weakness. [...] Musculoskeletal: left arm swelling. Integumentary: Warm, Dry, Octavia, incision is C/D/I. Neurologic: Alert, left sided [...] (Current Encounter/Past 24 Hours) PT 14.6 Second(s) MA 12/01/2018 06:53 INR 1.4 MA 12/01/2018 06:53 . Impression and Plan Plan: [...] of discharge- has sent information to [facility] -Transfer to [facility] 11/24/18 -POD#8 -Awaiting transfer to [facility] -Awaiting response from [facility] 11/25/18 -POD#9 -left upper extremity venous doppler - doppler this am positive for LUE DVT - will start coumadin and heparin bridge -awaiting [facility] 11/26/18 -POD#10 -Heparin drip and coumadin for LUE DVT -Left arm swelling improved today -INR 1.1 today, INR goal 2-3 -Possibly transfer to [facility] this weekend 11/27/18: -POD#11 -Left arm swelling continues to improve -Continues on Coumadin and heparin bridge -INR: 1.4 (1.1 yesterday) goal: 2 to 3 -[facility] soon,? Tomorrow 11/28/18: -POD#12 -BP in [...] to GI bleed. -Transfer to [facility] 11/30/18 POD # 14 EGD yesterday - duodenal ulceration with clot, no active bleeding and no intervention performed INR trending down, off coumadin and heparin Speech signed off yesterday - speech and cognition back to baseline Watch INR and [facility] upon discharge 12/01/18 POD # [address] [facility] today\.brTH stable, INR 1.4 EF 55-60% per echo 11/16/18 DVT Prophylaxis: SCDs Diagnosis CAD (coronary artery disease), [place] coronary artery - Admitting, Medical. Thrombocytopenia - [...] - Discharge, Medical. Electronically signed by Parveen [facility] Conversion Disintegrator Feeder Cerner at 12/08/2022 12:20 PM CDT documented in this encounter Plan of Treatment Not on file documented as of this encounter Visit Diagnoses Not on filedocumented in this encounter
--- OUTSIDE RECORDS SUMMARY | 2025-06-10 13:25 | XMS_ITS | Encounter Summary ---
Author Organization [employer] ([place], [place], [place], [place]) Address [address] [place] [address] Care Team Providers Care Reconsignment Clerk Name Role Phone Unavailable Primary Care Provider Unavailabl e Encounter Details Date Type Department Care Team (Late st Contact Info) Description 11/28/2018 Transcribed Document [facility] [place] [address] [place] [address] ProviderErika MD [address] [place] [address] Social History Tobacco Use Types [...] access. 20R shoulder x1 attempt using vein lodge attendant. 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
--- OUTSIDE RECORDS SUMMARY | 2025-06-10 13:25 | XMS_ITS | Encounter Summary ---
Author Organization [employer] ([place], [place], [place], [place]) Address [address] [place] [address] Care Team Providers Care Senior It Specialist Name Role Phone Unavailable Primary Care Provider Unavailabl e Encounter Details Date Type Department Care Team (Late st Contact Info) Description 11/28/2018 Transcribed Document [facility] [place] Family Medicine [address] [place] [address] ProviderErika MD [address] [place], [place] [phone] Social History Tobacco Use Types Packs/Day Years Used Date Smoking Tobacco: Never Assessed Sex and Gender Information Value Date Recorded Sex Assigned at Not on file Legal Sex Male 5:03 PM CDT Gender Identity Not on file Sexual Orientation Not on file documented as of this encounter Miscellaneous Notes * Cerner Conversion Note - Historical ProviderMD - 11/28/2018 2:00 AM CDT Executive Chairman Details Entered On: 11/28/2018 2:45 EDT Performed [...]
--- OUTSIDE RECORDS SUMMARY | 2025-06-10 13:25 | XMS_ITS | Encounter Summary ---
Author Organization [employer] ([place], [place], [place], [place]) Address [address] [place] [address] Care Team Providers Care Equipment Records Supervisor Name Role Phone Unavailable Primary Care Provider Unavailabl e Encounter Details Date Type Department Care Team (Late st Contact Info) Description 11/16/2018 Transcribed Document [facility] [place] [address] [place] [address] ProviderErika MD [address] [place] [address] Social History Tobacco Use Types [...] anterior descending). SURGEON: Porfirio Gaxiola IV, MD AUTO CLUTCH SPECIALIST: Saud Oliver (AMANDA) ANESTHESIA: General orotracheal. CLINICAL [...] Gaxiola IV, M.D. Electronically signed by Parveen [facility] Conversion Electronic Equipment Installer Cerner at 12/08/2022 12:25 PM CDT documented in this encounter Plan of Treatment Not on file documented as of this encounter Visit Diagnoses Not on filedocumented in this encounter
--- OUTSIDE RECORDS SUMMARY | 2025-06-10 13:25 | XMS_ITS | Encounter Summary ---
Author Organization [employer] ([place], [place], [place], [place]) Address [address] [place] [address] Care Team Providers Care Want Ad Receiver Name Role Phone Unavailable Primary Care Provider Unavailabl e Encounter Details Date Type Department Care Team (Late st Contact Info) Description 11/16/2018 Transcribed Document [facility] [place] [address] [place] [address] ProviderErika MD [address] [place] [address] Social History Tobacco Use [...]
--- OUTSIDE RECORDS SUMMARY | 2025-06-10 13:25 | XMS_ITS | Encounter Summary ---
Author Organization [employer] ([place], [place], [place], [place]) Address [address] [place] [address] Care Team Providers Care Service Manager Name Role Phone Unavailable Primary Care Provider Unavailabl e Encounter Details Date Type Department Care Team (Late st Contact Info) Description 11/20/2018 Transcribed Document [facility] [place] [address] [place] [address] ProviderErika MD [address] [place] [...] TORREY ZUNIGA SLP General Information Visit Type, HAT LACER : Initial evaluation Patient Orders : HAT LACER Fxnl Limitation Documentation x 1 -111 Start: 11/20/18 8:39:00 EDT - SYSTEM, SYSTEM HAT LACER Bedside Swallow Evaluation - Start: 11/20/18 8:38:00 EDT, Routine, For Swallow Eval and Treat -111 MICHAEL RODRIGUEZ MD Ordering Provider : MICHAEL RODRIGUEZ MD Admission Date : Admission Date/Time: 11/16/18 06:45:00 Personal Devices : Personal Devices No Devices Recorded Assistive Devices : Assistive Devices No Devices Recorded Active Diagnoses : 11/17/2018 00:00 Atherosclerotic heart disease of [place] coronary artery without angina pectoris 11/17/2018 00:00 Essential (primary) hypertension 11/17/2018 00:00 Hypothyroidism, unspecified 11/17/2018 00:00 Nonrheumatic aortic (valve) insufficiency 11/17/2018 00:00 Restless legs syndrome 11/17/2018 00:00 Thoracic aortic aneurysm, without rupture 11/17/2018 00:00 Thrombocytopenia, unspecified 11/16/2018 00:00 Atherosclerotic heart disease of [place] coronary artery without angina pectoris 11/16/2018 00:00 Nonrheumatic aortic (valve) insufficiency 11/16/2018 00:00 Thoracic aortic aneurysm, without rupture Therapy Diagnosis, HAT LACER : overt signs and symptoms of aspiration at bedside Previous Speech/Language Evaluations : N/A Previous Swallow Precautions : N/A Previous Cognitive Evaluations : N/A Diet/Intake Prior to Current Admission : Regular/thin Diet/Intake During Current Admission : NPO Intubation Comment, HAT LACER : 11/16-11/17 Vital Signs RTF : Vitals [...] : Nasal cannula 3 L/min TORREY ZUNIGA HAT LACER - 11/20/2018 9:21 EDT General Status Patient Received Status, HAT LACER : Long sitting in bed Patient Left Status, HAT LACER : Long sitting in bed TORREY ZUNIGA [...] Hoarse, Other: Weak Resonance Types : Appropriate HAT LACER Cough : Weak Facial Appearance: : Symmetrical [...] noted with thin via straw and puree. HAT LACER unable to determine safe diet at bedside, recommend FEES to further assess swallow function. Continue NPO with alternate means of nutrition and meds until FEES. HAT LACER discussed results and recs with patient and family. TORREY ZUNIGA SLP - 11/20/2018 9:26 EDT Impressions, BS Swallow : Signs/Symptoms of pharyngeal dysphagia Swallowing Outcome Measures : Functional Oral Intake Scale (FOIS) Functional Oral Intake Scale (FOIS) : Level I TORREY ZUNIGA HAT LACER - 11/20/2018 9:21 EDT Swallow Recommendations Recommended Diet Type, SwRec : Non-oral feeding, NPO Swallow Position, SwRec : Upright 90 degrees Recommended Med Present, SwRec : Non-oral Recommended Exam, Sw Rec : FEES Repeat Swallow Exam Timeframe : 1-3 days TORREY ZUNIGA SLP - 11/20/2018 9:26 EDT Therapy Indication Assessment HAT LACER Indicated : Yes HAT LACER Problem List : Impaired, Swallowing TORREY ZUNIGA SLP - 11/20/2018 9:26 EDT Swallow Plan/Goals Treatment Frequency, HAT LACER : 4 times per wk Treatment Duration, HAT LACER : Two weeks TORREY ZUNIGA SLP - 11/20/2018 9:26 EDT Swallow LTG Grid HAT LACER Fci Goal #1 Swallow LTG : Establish safe [...] : Cooperative Readiness to Learn : Demonstration TORERY ZUNIGA SLP - 11/20/2018 9:26 EDT HAT LACER Education Assessment Grid 1 Diet Recommendation : Verbalizes understanding Dysphagia : Verbalizes understanding Non-Oral Nutrition : Verbalizes understanding NPO : Verbalizes understanding TORREY ZUNIGA SLP - 11/20/2018 9:26 EDT HAT LACER Education Assessment Grid 2 Treatment Plan : Verbalizes understanding TORREY ZUNIGA SLP - 11/20/2018 9:[address] [facility] HAT LACER Charges Evaluation Swallowing Function : 1 TORREY ZUNIGA SLP - 11/20/2018 9:26 EDT Functional Limitation Reporting, HAT LACER Functional Limitation Visit Type, HAT LACER : Initial evaluation Severity Determination Method, HAT LACER : Clinical Judgment, Swallowing Swallow G8996 - Current Mod, HAT LACER : 80 - 99% impaired, limited or restricted (CM) Swallow G8997 - Proj Goal Mod, HAT LACER : 1 - 19% impaired, limited or restricted (CI) TORREY ZUNIGA SLP - 11/20/2018 9:26 EDT Electronically signed by Parveen [facility] Conversion Die Engraver Cerner at 12/08/2022 12:30 PM CDT documented in this encounter Plan of Treatment Not on file documented as of this encounter Visit Diagnoses Not on filedocumented in this encounter
--- OUTSIDE RECORDS SUMMARY | 2025-06-10 13:25 | XMS_ITS | Encounter Summary ---
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
--- OUTSIDE RECORDS SUMMARY | 2025-06-10 13:25 | XMS_ITS | Encounter Summary ---
Author Organization [employer] ([place], [place], [place], [place]) Address [address] [place] [address] Care Team Providers Care Millwright Instructor Name Role Phone Unavailable Primary Care Provider Unavailabl e Encounter Details Date Type Department Care Team (Late st Contact Info) Description 11/16/2018 Transcribed Document [facility] [place] [address] [place] [address] ProviderErika MD [address] [place] [address] Social History Tobacco Use Types [...] : 11/17/2018 00:00 Atherosclerotic heart disease of [place] coronary artery without angina pectoris 11/17/2018 00:00 Essential (primary) hypertension 11/17/2018 00:00 Hypothyroidism, unspecified 11/17/2018 00:00 Nonrheumatic aortic (valve) insufficiency 11/17/2018 00:00 Restless legs syndrome 11/17/2018 00:00 Thoracic aortic aneurysm, without rupture 11/17/2018 00:00 Thrombocytopenia, unspecified 11/16/2018 00:00 Atherosclerotic heart disease of [place] coronary artery without angina pectoris 11/16/2018 00:00 [...] ROGER LEWIS, PT - 11/18/2018 16:07 EDT Film Reader Goals Mobility/Bed Mobility LTG PT Grid Goal [...] ROGER LEWIS, PT - 11/18/2018 16:07 EDT [place] PT Charges PT Eval Moderate Complexity : 1 ROGER LEWIS, PT - 11/18/2018 16:07 EDT documented in this encounter Plan of Treatment Not on file documented as of this encounter Visit Diagnoses Not on filedocumented in this encounter
--- OUTSIDE RECORDS SUMMARY | 2025-06-10 13:25 | XMS_ITS | Encounter Summary ---
Author Organization [employer] ([place], [place], [place], [place]) Address [address] [place] [address] Care Team Providers Care Parts Consultant Name Role Phone Unavailable Primary Care Provider Unavailabl e Encounter Details Date Type Department Care Team (Late st Contact Info) Description 11/16/2018 Transcribed Document [facility] [place] Family Medicine [address] [place] [address] ProviderErika MD [address] [place] [address] Social History Tobacco Use Types Packs/Day Years Used Date Smoking Tobacco: Never Assessed Sex and Gender Information Value Date Recorded Sex Assigned at Not on file Legal Sex Male 5:03 PM CDT Gender Identity Not on file Sexual Orientation Not on file documented as of this encounter Miscellaneous Notes * Cerner Conversion Note - Erika ProviderMD - 11/16/2018 8:20 AM CDT [facility] Main OR IntraOp Summary Primary Physician: JULIO CESAR CARVALHO MD-CAT Finalized Date/Time: 11/17/18 10:03:54 Pt. Name: DOTTIE VILLASENOR D.O.B./Sex: 1940 Male Med Rec #: [id number] Physician: JULIO CESAR CARVALHO MD-CAT Financial #: [id number] Pt. Type: I Room/Bed: [facility] Admit/Disch: 11/16/18 06:45:00 - Institution: [facility] IntraOp Case Attendance Entry 1 Entry 2 Entry 3 Case Attendee JULIO CESAR CARVALHO MD-CAT ALTIZER, LISA E, RN Alton Gamble, religious education coordinator Role Performed Surgeon/Proceduralist, Animal Treatment Investigator, First Properties Supervisor First Time In 11/16/18 07:06:00 11/16/18 07:06:00 [...] CAROLYN, RN Role Performed Scrub, First Anesthesiologist Animal Treatment Investigator, Second Time In 11/16/18 07:06:00 11/16/18 07:06:00 [...] [place] Pref Card Builder Role Performed Physician graduate research assistant Physician graduate research assistant Animal Treatment Investigator, Second Time In 11/16/18 07:06:00 11/16/18 09:00:00 [...] Attendee Colette Alexander, LISETH Dimas, Alton Gamble, religious education coordinator Pref Card Builder Properties Supervisor Role Performed Scrub, First Properties Supervisor Properties Supervisor Time In 11/16/18 10:32:00 11/16/18 11:05:00 11/16/18 [...] 12:25:17 Entry 13 Case Attendee LISETH ROE, Properties Supervisor Role Performed Properties Supervisor Time In 11/16/18 12:13:00 Time Out 11/16/18 12:30:00 Procedure Aortic Aneurysm Ascending Repair, CABG w Aortic Valve, Transesophageal Echocardiogram Other Attendee Superficial Wound Closed By: Last Modified By: RADHA VALENCIA, TONJA 11/16/18 12:40:56 [facility] IntraOp Case Attendance Audit 11/16/18 12:40:56 Sound Ranging Crewmember: ALTIZEL Modifier: ALTIZEL 1 <+> Time Out [...] w Aortic Valve, Transesophageal Echocardiogram 11/16/18 12:25:17 Sound Ranging Crewmember: ALTIZEL Modifier: ALTIZEL 12 <+> Time Out 12 <*> Procedure Aortic Aneurysm Ascending Repair, CABG w Aortic Valve <+> 13 Case Attendee <+> 13 Role Performed <+> 13 Time In <+> 13 Procedure 11/16/18 11:17:39 Sound Ranging Crewmember: ALTIZEL Modifier: ALTIZEL <+> 12 Case Attendee <+> 12 Role Performed <+> 12 Time In <+> 12 Procedure 11/16/18 11:17:17 Sound Ranging Crewmember: ALTIZEL Modifier: ALTIZEL 3 <+> Time Out 3 <*> Procedure Transesophageal Echocardiogram <+> 11 Case Attendee <+> 11 Role Performed <+> 11 Time In <+> 11 Time Out <+> 11 Procedure <+> 11 Other Attendee 11/16/18 10:47:10 Sound Ranging Crewmember: ALTIZEL Modifier: ALTIZEL <+> 10 Case Attendee <+> 10 Role Performed <+> 10 Time In <+> 10 Time Out <+> 10 Procedure <+> 10 Other Attendee 11/16/18 09:58:31 Sound Ranging Crewmember: ALTIZEL Modifier: ALTIZEL <+> 1 Procedure <+> 2 Procedure <+> 3 Procedure <+> 4 Procedure <+> 5 Procedure <+> 6 Procedure 7 <*> Procedure Aortic Aneurysm Ascending Repair, CABG w Aortic Valve 8 <*> Procedure Aortic Aneurysm Ascending Repair, CABG w Aortic Valve 9 <*> Procedure Aortic Aneurysm Ascending Repair, CABG w Aortic Valve 11/16/18 09:50:06 Sound Ranging Crewmember: ALTIZEL Modifier: ALTIZEL 9 <+> Time Out 9 <*> Procedure Aortic Aneurysm Ascending Repair, CABG w Aortic Valve 11/16/18 09:39:14 Sound Ranging Crewmember: ALTIZEL Modifier: ALTIZEL <+> 9 Case Attendee <+> 9 Role Performed <+> 9 Time In <+> 9 Procedure <+> 9 Other Attendee 11/16/18 09:28:12 Sound Ranging Crewmember: ALTIZEL Modifier: ALTIZEL <+> 8 Case Attendee <+> 8 Role Performed <+> 8 Time In <+> 8 Procedure 11/16/18 08:24:20 Sound Ranging Crewmember: ALTIZEL Modifier: ALTIZEL 7 <+> Time Out 7 <*> Procedure Aortic Aneurysm Ascending Repair, CABG w Aortic Valve 11/16/18 08:21:45 Sound Ranging Crewmember: ALTIZEL Modifier: ALTIZEL <+> 6 Time Out 11/16/18 08:10:59 Sound Ranging Crewmember: ALTIZEL Modifier: ALTIZEL 6 <*> Time In 11/16/18 07:00:00 <+> 7 Case Attendee <+> 7 Role Performed <+> 7 Time In <+> 7 Procedure 11/16/18 07:19:51 Sound Ranging Crewmember: ALTIZEL Modifier: ALTIZEL <+> 2 Time In <+> 3 Time In <+> 4 Time In <+> 5 Time In 11/16/18 07:19:37 Sound Ranging Crewmember: ALTIZEL Modifier: ALTIZEL <+> 1 Time In <+> 2 Case Attendee <+> 2 Role Performed <+> 3 Case Attendee <+> 3 Role Performed <+> 4 Case Attendee <+> 4 Role Performed <+> 5 Case Attendee <+> 5 Role Performed <+> 6 Case Attendee <+> 6 Role Performed <+> 6 Time In [facility] IntraOp Case Times Entry 1 Patient In Room Time 11/16/18 07:06:00 Out Room Time 11/16/18 12:30:00 Anesthesia Start Time 11/16/18 07:06:00 Stop Time 11/16/18 12:30:00 Anesthesia Ready 11/16/18 07:06:00 Surgery / Procedure Times Start Time 11/16/18 08:20:00 Stop Time 11/16/18 12:22:00 Last Modified By: RADHA VALENCIA RN 11/16/18 07:17:32 [facility] IntraOp Case Times Audit 11/16/18 12:30:30 Sound Ranging Crewmember: ALTIZEL Modifier: ALTIZEL <+> 1 Out Room Time <+> 1 Stop Time <+> 1 Stop Time 11/16/18 08:21:57 Sound Ranging Crewmember: ALTIZEL Modifier: ALTIZEL <+> 1 Start Time [facility] IntraOp Cautery Entry 1 ESU Identification Cautery Type Monopolar ESU ID Number [id number] ID Type Hospital Number Cautery Settings Cut [...] Modified By: RADHA VALENCIA RN 11/16/18 08:42:12 [facility] IntraOp Communication Entry 1 Entry 2 [...] RN 11/16/18 11:53:58 11/16/18 12:13:00 11/16/18 12:13:00 [facility] IntraOp Communication Audit 11/16/18 12:13:00 Sound Ranging Crewmember: ALTIZEL Modifier: ALTIZEL <+> 8 Communication By <+> 8 Date and Time <+> 8 Communication To <+> 9 Communication By <+> 9 Date and Time <+> 9 Communication To <+> 9 Comment 11/16/18 11:53:58 Sound Ranging Crewmember: ALTIZEL Modifier: ALTIZEL <+> 7 Communication By <+> 7 Date and Time <+> 7 Communication To <+> 7 Comment 11/16/18 11:31:42 Sound Ranging Crewmember: ALTIZEL Modifier: ALTIZEL <+> 6 Communication By <+> 6 Date and Time <+> 6 Communication To 11/16/18 10:22:56 Sound Ranging Crewmember: ALTIZEL Modifier: ALTIZEL <+> 5 Communication By <+> 5 Date and Time <+> 5 Communication To 11/16/18 09:10:41 Sound Ranging Crewmember: ALTIZEL Modifier: ALTIZEL <+> 3 Communication By <+> 3 Date and Time <+> 3 Communication To <+> 4 Communication By <+> 4 Date and Time <+> 4 Communication To <+> 4 Comment [facility] IntraOp Counts Verification Entry 1 Entry [...] LISA E, RN 11/16/18 07:20:29 11/16/18 11:54:29 [facility] IntraOp Counts Verification Audit 11/16/18 11:54:29 Sound Ranging Crewmember: ALTIZEL Modifier: ALTIZEL <+> 2 Procedure <+> 2 Count Type <+> 2 Counts Verification Sequence <+> 2 Count Results <+> 2 Count Performed By (Scrub) <+> 2 Count Performed By (RN) 11/16/18 09:58:33 Sound Ranging Crewmember: ALTIZEL Modifier: ALTIZEL 1 <*> Procedure Aortic Aneurysm Ascending Repair, CABG w Aortic Valve [facility] IntraOp Counts Final Entry 1 Procedure Aortic Aneurysm Ascending Repair, CABG w Aortic Valve, Transesophageal Echocardiogram Final Count Info Count Type Sponge, Sharps, Instrument, Miscellaneous Counts Verification Skin Closure/end of Sequence procedure Count Results Correct, surgeon notified Counts Performed By Count Performed By MELODY MASON (Scrub) Count Performed By RADHA VALENCIA RN (RN) Last Modified By: RADHA VALENCIA RN 11/16/18 12:01:46 [facility] IntraOp Cultures and Spec Summary Entry 1 Cultrures and Specimens Specimen Ordered: Yes Specimens Types Pathology Specimen(s) Labeled Pathology and Sent to Last Modified By: RADHA VALENCIA RN 11/16/18 09:22:38 [facility] IntraOp Departure from OR Entry 1 Integumentary Assessment Integumentary WDL Assessment WDL Transfer/Handoff Transfer to ICU - Cardiovascular Post-op Transport Bed (including Via specialty) Patient Transport SHERRY NICHOLS, Accompanied by Tye KHAN Tom, religious education coordinator Last Modified By: RADHA VALENCIA RN 11/16/18 08:42:33 [facility] IntraOp Drains and Tubes Entry 1 [...] LISA E, RN 11/16/18 08:42:54 11/16/18 08:42:54 [facility] IntraOp Dressing and Packing Entry 1 Entry 2 Type Dressing Dressing Location Mediastinum Mediastinum Wound Dressing Item 4x4's, Skin Closure Glue 4x4's Wound Packing Type Tape Type Supplemental Applications Applied By Other Comments Soft cloth paper tape Soft cloth paper tape Last Modified By: RADHA VALENCIA RN ALTIZER, LISA E, RN 11/16/18 08:43:06 11/16/18 08:53:50 [facility] IntraOp Dressing and Packing Audit 11/16/18 08:53:50 Sound Ranging Crewmember: SAIGEIZEL Modifier: ALTIZEL <+> 2 Type <+> 2 Location <+> 2 Wound Dressing Item <+> 2 Other Comments [facility] IntraOp Fire Risk Assessment Entry 1 [...] Modified By: RADHA VALENCIA RN 11/16/18 07:20:01 [facility] IntraOp Fire Risk Assessment Audit 11/16/18 08:43:21 Sound Ranging Crewmember: SAGIEIZEL Modifier: ALTIZEL 1 <*> Fire Risk Assessment Verified 11/16/18 07:19:00 Date/Time [facility] IntraOp General Case Reduction Furnace Operator 1 Case Information OR OR 14 [facility] Case Level 2 Room Verified Yes Wound Class I - Clean Specialty SN Cardio Thoracic Anesthesia Type General ASA Class 4 Diagnosis Preop Diagnosis CAD, AORTIC VALVE DISEASE, ASCENDING AORTIC ANEURSYM Postop Diagnosis SEE MD POST OP NOTE Last Modified By: RADHA VALENCIA RN 11/16/18 08:50:46 [facility] IntraOp Implant Log Entry 1 Entry 2 Type Implant (Synthetic) Tissue Implant (Biologic) Implant Log Implant Type Grafts, non-biological Tissue Implant Type Heart valve Implant [facility] PLAT VALVE AORT ROOT Identification [id number] [facility] [id number] Description Implant Quantity 1 1 Implant Site AORTA AORTA Implant Identification Model Number Implant [id number] Identification Serial Number Implant Identification Lot Number Implant Michel Ind:Maquet:Cv Medtronic:Card Surg:Tech Identification Delivery Stock Clerk Name: Implant [id number] Identification Catalog Number Implant Size Implant Has an Yes Yes Expiration Date Implant Expiration 08/23/23 05/20/22 Date Wasted Radioactive Material Time Implanted Tissue Implant Continue for Tissue Implant Documentation Tissue Identification Number Graft Prep Per Yes Delivery Stock Clerk Instructions: Tissue Preparation N/A Method: Reconstitution Solution: Reconstitution Solution Lot Number Reconstitution Solution Expiration Date: Thawing Solution Thawing Solution Lot Number Thawing Solution Expiration Date Preparation NACL Materials, Other Preparation [id number] Materials, Other Lot Number Preparation 06/22/22 Materials, Other Expiration Date Tissue MARLON, MELODY Prepared/Processed By Delivery Stock Clerk Yes Paperwork Completed Implant Type Comment Last Modified By: RADHA VALENCIA RN ALTIZER, LISA E, RN 11/16/18 09:42:38 11/16/18 09:42:38 [facility] IntraOp Intraoperative Assessment Entry 1 Handoff [...] Modified By: RADHA VALENCIA RN 11/16/18 08:25:54 [facility] IntraOp Intraoperative Equipment Entry 1 Equipment Intraop Monitoring Blood Pressure Non-Invasive BP Device Source Blood Pressure Arm, right upper Location Pulse Oximeter Hand, left Probe Site Antiembolic Devices Scopes Photo/Video Documentation Last Modified By: RADHA VALENCIA RN 11/16/18 08:51:22 [facility] IntraOp Medication Admin Entry 1 Entry 2 Entry 3 Medication/Irrigant papverine HCL 30mg/ml lidocaine 1% 50ml vial NS 0.9% 50ml injection 10ml - [id number] - [id number] - [id number] Combo Med List Time Administered Route of FLUSH MAMMARY LOCAL FLUSH Administration Dose Dose 150 8 30 Unit of Measure mg ml ml Volume Administered By JULIO CESAR CARVALHO MD-[facility] ERASMO LÓPEZ PA MEECE, PAUL, PA Procedure Irrigation Irrigant Volume In Irrigant Volume Out Last Modified By: RADHA VALENCIA RN ALTIZER, LISA E, RN ALTIZER, LISA E, RN 11/16/18 08:52:11 11/16/18 11:07:14 11/16/18 08:52:11 Entry 4 Entry 5 Medication/Irrigant Ancef 1Gm advantage KT TISSEEL VH SD vial - [id number] Combo Med List Time Administered Route of IRRIGATION TOPICAL Administration Dose Dose 1 10 Unit of Measure gram ml Volume Administered By JULIO CESAR CARVALHO MD-CAT JULIO CESAR CARVALHO MD-CAT Procedure Irrigation Irrigant Volume In Irrigant Volume Out Last Modified By: RADHA VALENCIA RN ALTIZER, LISA E, RN 11/16/18 08:52:11 11/16/18 09:49:07 [facility] IntraOp Medication Admin Audit 11/16/18 11:07:14 Sound Ranging Crewmember: ALTIZEL Modifier: ALTIZEL 2 <*> Medication/Irrigant lidocaine 1% 50ml vial - [id number] 2 <*> Administered By ALLA SORIANO RN 11/16/18 09:49:07 Sound Ranging Crewmember: ALTIZEL Modifier: ALTIZEL <+> 5 Medication/Irrigant <+> 5 Route of Administration <+> 5 Administered By <+> 5 Dose <+> 5 Unit of Measure [facility] IntraOp Patient Positioning Entry 1 Procedure [...] Modified By: RADHA VALENCIA RN 11/16/18 08:49:03 [facility] IntraOp Patient Positioning Audit 11/16/18 09:58:34 Sound Ranging Crewmember: ALTIZEL Modifier: ALTIZEL 1 <*> Procedure Aortic Aneurysm Ascending Repair, CABG w Aortic Valve [facility] IntraOp Sign In Entry 1 Patient, [...] Modified By: RADHA VALENCIA RN 11/16/18 07:19:47 [facility] IntraOp Sign Out Entry 1 RN [...] Modified By: RADHA VALENCIA RN 11/16/18 12:41:17 [facility] IntraOp Skin Prep Entry 1 Procedure Transesophageal Echocardiogram Prescribed Yes Pre-Surgical Prep Completed Prep Area Chin to TOES Intraop Prep Integumentary WDL Assessment WDL Patients Normal WDL Integumentary Variance(s) Prep Agents Chloraprep Prep by RADHA VALENCIA RN Skin Prep Comment Xander Soriano also prepped Hair Removal Last Modified By: RADHA VALENCIA RN 11/16/18 08:52:45 [facility] IntraOp Skin Prep Audit 11/16/18 09:58:34 Sound Ranging Crewmember: ALTIZEL Modifier: ALTIZEL <+> 1 Procedure [facility] IntraOp Surgical Procedures Entry 1 Entry [...] RN 11/16/18 09:57:36 11/16/18 08:49:06 11/16/18 09:58:24 [facility] IntraOp Surgical Procedures Audit 11/16/18 12:41:26 Sound Ranging Crewmember: ALTIZEL Modifier: ALTIZEL <+> 1 Stop <+> 2 Stop <+> 3 Stop 11/16/18 10:51:43 Sound Ranging Crewmember: ALTIZEL Modifier: ALTIZEL 1 <*> Procedure Aortic Aneurysm Ascending Repair 11/16/18 10:17:14 Sound Ranging Crewmember: ALTIZEL Modifier: ALTIZEL <+> 3 Start 11/16/18 09:58:24 Sound Ranging Crewmember: ALTIZEL Modifier: ALTIZEL <+> 3 Procedure <+> 3 Primary Procedure <+> 3 Primary Surgeon <+> 3 Specialty <+> 3 Wound Class <+> 3 Anesthesia Type 11/16/18 09:57:36 Sound Ranging Crewmember: ALTIZEL Modifier: ALTIZEL 1 <*> Procedure Aortic Aneurysm Ascending Repair 1 <*> Additional Procedure Description (ASCENDING AORTIC ANEURYSM REPAIR, CABG, POSSIBLE AORTIC VALVE REPLACEMENT) [facility] IntraOp Temp Regulation Devices Entry 1 Entry 2 Temp Regulation Temperature Forced Air Warming Warm blankets Regulation Device device Temperature [id number] Regulation Device Serial/Unit Number Temperature Lower body Full body Regulation Site Temperature Device 43 DEG C Setting Temperature RADHA VALENCIA RN ALTIZER, LISA E, RN Regulation Device Applied by Temperature CATIA HUGGER TURNED ON Regulation Comment AFTER AORTIC CROSS CLAMP REMOVED Last Modified By: RADHA VALENCIA RN ALTIZER, LISA E, RN 11/16/18 08:53:25 11/16/18 08:53:25 [facility] IntraOP Time Out Entry 1 Procedure [...] Modified By: RADHA VALENCIA RN 11/16/18 09:58:34 [facility] IntraOP Time Out Audit 11/16/18 09:58:34 Sound Ranging Crewmember: EARNESTINE Modifier: ALTIZEL 1 <*> Procedure to be Performed Aortic Aneurysm Ascending Repair, CABG w Aortic Valve Case Comments <None> Finalized By: JODI PITT Document Signatures Signed By: RADHA VALENCIA RN 11/16/18 12:41 JODI PITT 11/17/18 10:03 Unfinalized History Date/Time Username Reason for Unfinalizing Freetext Reason for Unfinalizing 11/17/18 09:59 [email or web address] Correct Billing Electronically signed by Parveen [facility] Conversion Bale Tie Machine Operator Cerner at 12/08/2022 12:09 PM CDT documented in this encounter Plan of Treatment Not on file documented as of this encounter Visit Diagnoses Not on filedocumented in this encounter
--- OUTSIDE RECORDS SUMMARY | 2025-06-10 13:25 | XMS_ITS | Encounter Summary ---
Author Organization [email or web address] ([place], [place], [place], [place]) Address [address] [place] [address] Care Team Providers Care Client Service Consultant Name Role Phone Unavailable Primary Care Provider Unavailabl e Encounter Details Date Type Department Care Team (Late st Contact Info) Description 11/16/2018 Transcribed Document [facility] [place] Family Medicine [address] [place] [address] ProviderErika MD [address] [place], [...] Erika ProviderMD - 11/16/2018 7:30 AM CDT [facility] Main OR Preop Summary Primary Physician: JULIO CESAR CARVALHO MD-CAT Finalized Date/Time: 11/16/18 07:12:04 Pt. Name: DOTTIE VILLASENOR D.O.B./Sex: 1940 Male Med Rec #: [id number] Physician: JULIO CESAR CARVALHO MD-CAT Financial #: [id number] Pt. Type: I Room/Bed: ASA/8 Admit/Disch: 11/16/18 06:45:00 - Institution: [facility] PreOp Case Times Entry 1 In [...]
--- OUTSIDE RECORDS SUMMARY | 2025-06-10 13:25 | XMS_ITS | Encounter Summary ---
Author Organization [employer] ([place], [place], [place], [place]) Address [address] [place] [address] Care Team Providers Care Manager Field Investigations Name Role Phone Unavailable Primary Care Provider Unavailabl e Encounter Details Date Type Department Care Team (Late st Contact Info) Description 11/28/2018 Transcribed Document [facility] [place] [address] [place] [address] ProviderErika MD [address] [place] [address] Social History Tobacco Use Types [...] Transfer to critical care Rapid Response Manager Field Investigations #1 : MICHAEL WALLER RN Rapid Response Manager Field Investigations #2 : DIA BINGHAM RN Rapid Response Manager Field Investigations #3 : SRINIVAS LEAL RN [place], CAMER[place], [...] Team Initiation Reason Details : 3E 333. SUPERVISOR BOARDING notified of pt with decrease in BP despite treatment. MD notified. Bolus given and pt labwork obtained. 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
--- OUTSIDE RECORDS SUMMARY | 2025-06-10 13:26 | XMS_ITS | Encounter Summary ---
Author Organization [employer] ([place], [place], [place], [place]) Address [address] [place] [address] Care Team Providers Care Manufacturing Storeperson Name Role Phone Unavailable Primary Care Provider Unavailabl e Encounter Details Date Type Department Care Team (Late st Contact Info) Description 11/16/2018 Transcribed Document [facility] [place] [address] [place] [address] ProviderErika MD [address] [place] [address] Social History Tobacco Use [...] On: 11/16/2018 12:27 EDT by [facility] Phone Call for Consults Consult Phone Call/Page Attempt : First call Lorin Pratt [facility] - 11/16/2018 13:34 EDT documented in this encounter Plan of Treatment Not on file documented as of this encounter Visit Diagnoses Not on filedocumented in this encounter
--- OUTSIDE RECORDS SUMMARY | 2025-06-10 13:26 | XMS_ITS | Encounter Summary ---
Author Organization [employer] ([place], [place], [place], [place]) Address [address] [place] [address] Care Team Providers Care Oil Agent Name Role Phone Unavailable Primary Care Provider Unavailabl e Encounter Details Date Type Department Care Team (Late st Contact Info) Description 11/16/2018 Transcribed Document [facility] [place] [address] [place] [address] ProviderErika MD [address] [place], [...]
--- OUTSIDE RECORDS SUMMARY | 2025-06-10 13:26 | XMS_ITS | Encounter Summary ---
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 No needs at this time. Quaker Preference : Worship MALU SHEPARD Chaplain-Non Cert - 11/28/2018 5:34 EDT documented in this encounter Plan of Treatment Not on file documented as of this encounter Visit Diagnoses Not on filedocumented in this encounter
--- OUTSIDE RECORDS SUMMARY | 2025-06-10 13:26 | XMS_ITS | Encounter Summary ---
Author Organization [employer] ([place], [place], [place], [place]) Address [address] [place] [address] Care Team Providers Care Technical Staff Engineer Name Role Phone Unavailable Primary Care Provider Unavailabl e Encounter Details Date Type Department Care Team (Late st Contact Info) Description 11/20/2018 Transcribed Document [facility] Pulm & Critical Care Medicine [address] [place] [address] Eloy Rodrigues MD [address] [place], [place] [id number] Social History Tobacco Use Types Packs/Day Years [...] 16:32:27 Trans: 11/20/2018 22:52:43 Processed: 11/22/2018 09:57:30 [place] CC1: Eloy Rodrigues M.D. documented in this encounter Plan of Treatment Not on file documented as of this encounter Visit Diagnoses Not on filedocumented in this encounter
--- OUTSIDE RECORDS SUMMARY | 2025-06-10 13:26 | XMS_ITS | Encounter Summary ---
Author Organization [employer] ([place], [place], [place], [place]) Address [address] [place] [address] Care Team Providers Care Paving Plant Operator Name Role Phone Unavailable Primary Care Provider Unavailabl e Encounter Details Date Type Department Care Team (Late st Contact Info) Description 11/28/2018 Transcribed Document [facility] [place] Family Medicine [address] [place] [address] ProviderErika MD [address] [place] [address] Social History Tobacco Use Types [...]
--- OUTSIDE RECORDS SUMMARY | 2025-06-10 13:26 | XMS_ITS | Encounter Summary ---
Author Organization [facility] ([place], [place], [place], [place]) Address [address] [place] [address] Care Team Providers Care Cell Repairer Name Role Phone Unavailable Primary Care Provider Unavailabl e Encounter Details Date Type Department Care Team (Late st Contact Info) Description 11/28/2018 Transcribed Document [facility] [place] [address] [place] [address] ProviderErika MD [address] [place] [address] Social History Tobacco Use Types Packs/Day Years Used Date Smoking Tobacco: Never Assessed Sex and Gender Information Value Date Recorded Sex Assigned at Not on file Legal Sex Male 5:03 PM CDT Gender Identity Not on file Sexual Orientation Not on file documented as of this encounter Miscellaneous Notes * Cerner Conversion Note - Erika ProviderMD - 11/28/2018 10:19 AM CDT [facility] Main OR IntraOp Summary Primary Physician: SAMAN BERNSTEIN MD-GAE Finalized Date/Time: 11/30/18 09:14:16 Pt. Name: DOTTIE VILLASENOR D.O.B./Sex: 1940 Male Med Rec #: [id number] Physician: JULIO CESAR CARVALHO MD-[facility] Financial #: [id number] Pt. Type: I Room/Bed: [facility]/1 Admit/Disch: 11/16/18 06:45:00 - Institution: [facility] IntraOp Case Attendance Entry 1 Entry 2 Entry 3 Case Attendee SAMAN BERNSTEIN MD-SALMA GARCIA MD WURTELE, JOHN L. Role Performed Surgeon/Proceduralist, Anesthesiologist [employer], Ancillary First Time In 11/28/18 10:10:00 11/28/18 10:10:00 11/28/18 10:10:00 Time Out 11/28/18 10:35:00 11/28/18 10:35:00 11/28/18 10:35:00 Procedure Esophagogastroduodenosco Esophagogastroduodenosco Esophagogastroduodenosco py py py Other Attendee Superficial Wound Closed By: Last Modified By: Sukumar Casanova, Sukumar Gibbs, Sukumar Gibbs RN 11/28/18 11:00:07 11/28/18 11:00:07 11/28/18 11:00:07 Entry 4 Entry 5 Case Attendee Dianne Garcia, Sukumar Gibbs, TONJA Role Performed Manager Mall, First Manager Mall, Second Time In 11/28/18 10:10:00 11/28/18 10:10:00 Time Out 11/28/18 10:35:00 11/28/18 10:35:00 Procedure Esophagogastroduodenosco Esophagogastroduodenosco py py Other Attendee Superficial Wound Closed By: Last Modified By: Sukumar Casanova, Sukumar Gibbs RN 11/28/18 11:00:07 11/28/18 11:00:07 [facility] IntraOp Case Attendance Audit 11/28/18 11:00:07 Books Binder: ANDRADES Modifier: PANTANOS 1 <+> Time Out 1 <*> Procedure Esophagogastroduodenoscopy 2 <+> Time Out 2 <*> Procedure Esophagogastroduodenoscopy 3 <+> Time Out 3 <*> Procedure Esophagogastroduodenoscopy 4 <+> Time Out 4 <*> Procedure Esophagogastroduodenoscopy 5 <+> Time Out 5 <*> Procedure Esophagogastroduodenoscopy 11/28/18 10:20:36 Books Binder: FABIANAANOS Modifier: PANTANOS <+> 1 Procedure 2 <+> Time In 2 <*> Procedure Esophagogastroduodenoscopy 3 <+> Time In 3 <*> Procedure Esophagogastroduodenoscopy 4 <+> Time In 4 <*> Procedure Esophagogastroduodenoscopy 5 <+> Time In 5 <*> Procedure Esophagogastroduodenoscopy [facility] IntraOp Case Times Entry 1 Patient In Room Time 11/28/18 10:10:00 Out Room Time 11/28/18 10:35:00 Anesthesia Start Time 11/28/18 10:10:00 Stop Time 11/28/18 10:35:00 Surgery / Procedure Times Start Time 11/28/18 10:19:00 Stop Time 11/28/18 10:33:00 Last Modified By: Sukumar Casanova RN 11/28/18 10:59:40 [facility] IntraOp Case Times Audit 11/28/18 10:59:40 Books Binder: PANTANOS Modifier: PANTANOS <+> 1 Out Room Time <+> 1 Stop Time <+> 1 Stop Time 11/28/18 10:22:00 Books Binder: PANTANOS Modifier: PANTANOS <+> 1 Start Time [facility] IntraOp Departure from OR Entry 1 Integumentary Assessment Transfer/Handoff Transfer to PACU Phase I Handoff Method Bedside/Face to face, Online nursing summary Post-op Transport Stretcher/Gurney Via Patient Transport Sukumar Casanova RN, Accompanied by SALMA MARROQUIN MD Last Modified By: Sukumar Casanova RN 11/28/18 10:25:50 [facility] IntraOp Departure from OR Audit 11/28/18 10:25:50 Books Binder: FABIANAANOS Modifier: PANTANOS 1 <*> Patient Transport Accompanied by Sukumar Casanova RN [facility] IntraOp Fire Risk Assessment Entry 1 [...] Modified By: Sukumar Casanova RN 11/28/18 10:15:58 [facility] IntraOp General Case Mold Making Supervisor 1 Case Information OR OR [facility] Case Level 1 Room Verified Yes Wound Class II - Clean-Contaminated Specialty SN Gastroenterology Anesthesia Type General ASA Class 4E Diagnosis Preop Diagnosis GASTRIC BLEED Postop Same As Preop Yes Postop Diagnosis GASTRIC BLEED Last Modified By: Sukumar Casanova RN 11/28/18 10:18:38 [facility] IntraOp General Case Data Audit 11/28/18 10:18:38 Books Binder: WILL Modifier: PANTANOS <+> 1 Postop Same As Preop <+> 1 Preop Diagnosis <+> 1 Postop Diagnosis [facility] IntraOp Intraoperative Assessment Entry 1 Handoff [...] Modified By: Sukumar Casanova RN 11/28/18 10:21:06 [facility] IntraOp Intraoperative Equipment Entry 1 Type Monitoring Equipment Intraop Monitoring Electrocardiogram Three lead placement (ECG) Electrode Placement Blood Pressure Non-Invasive BP Device Source Blood Pressure Arm, right upper Location Pulse Oximeter Hand, left Probe Site Antiembolic Devices Scopes Photo/Video Documentation Last Modified By: Sukumar Casanova RN 11/28/18 10:21:34 [facility] IntraOp Patient Positioning Entry 1 Procedure [...] Modified By: Sukumar Casanova RN 11/28/18 10:20:33 [facility] IntraOp Sign In Entry 1 Patient, [...] Modified By: Sukumar Casanova RN 11/28/18 10:22:31 [facility] IntraOp Sign Out Entry 1 RN [...] Modified By: Sukumar Casanova RN 11/28/18 11:00:01 [facility] IntraOp Sign Out Audit 11/28/18 11:00:01 Books Binder: WILL Modifier: WILL <+> 1 RN Sign Out Signature Date/Time [facility] IntraOp Surgical Procedures Entry 1 Procedure Esophagogastroduodenosco py Additional (EGD WITH CONTROL OF Procedure BLEEDING) Description Primary Procedure Yes Primary Surgeon SAMAN BERNSTEIN MD-TAO Start 11/28/18 10:19:00 Stop 11/28/18 10:33:00 Anesthesia Type General Specialty SN Gastroenterology Wound Class II - Clean-Contaminated Last Modified By: Sukumar Casanova RN 11/28/18 10:59:52 [facility] IntraOp Surgical Procedures Audit 11/28/18 10:59:52 Books Binder: WILL Modifier: WILL 1 <*> Procedure Esophagogastroduodenoscopy 1 <+> Specialty 11/28/18 10:59:43 Books Binder: WILL Modifier: WILL <+> 1 Start <+> 1 Stop [facility] IntraOp Temp Regulation Devices Entry 1 Temp Regulation Temperature Warm blankets Regulation Device Temperature Full body Regulation Site Last Modified By: Sukumar Casanova RN 11/28/18 10:26:13 [facility] IntraOP Time Out Entry 1 Procedure [...] Modified By: Sukumar Casanova RN 11/28/18 10:21:53 [facility] IntraOP Time Out Audit 11/28/18 10:21:53 Books Binder: WILL Modifier: WILL 1 <+> Time Out Pause Time 1 <*> Procedure to be Performed Esophagogastroduodenoscopy Case Comments <None> Finalized By: JODI PITT Document Signatures Signed By: Sukumar Casanova RN 11/28/18 11:00 JODI PITT 11/30/18 09:14 Unfinalized History Date/Time Username Reason for Unfinalizing Freetext Reason for Unfinalizing 11/30/18 09:13 [email or web address] Correct Billing documented in this encounter Plan of Treatment Not on file documented as of this encounter Visit Diagnoses Not on filedocumented in this encounter
--- OUTSIDE RECORDS SUMMARY | 2025-06-10 13:26 | XMS_ITS | Encounter Summary ---
Author Organization [employer] ([place], [place], [place], [place]) Address [address] [place] [address] Care Team Providers Care Manager Recovery Name Role Phone Unavailable Primary Care Provider Unavailabl e Encounter Details Date Type Department Care Team (Late st Contact Info) Description 11/28/2018 Transcribed Document [facility] [place] [address] [place] [address] ProviderErika MD [address] [place] [address] Social History Tobacco Use Types [...] EDT Electronically signed by Christina Saini Conversion Day Habilitation Supervisor Felipe at 12/08/2022 12:19 PM CDT documented in this encounter Plan of Treatment Not on file documented as of this encounter Visit Diagnoses Not on filedocumented in this encounter
--- OUTSIDE RECORDS SUMMARY | 2025-06-10 13:26 | XMS_ITS | Encounter Summary ---
Author Organization [employer] ([place], [place], [place], [place]) Address [address] [place] [address] Care Team Providers Care Caul Puller Name Role Phone Unavailable Primary Care Provider Unavailabl e Encounter Details Date Type Department Care Team (Late st Contact Info) Description 11/16/2018 Transcribed Document [facility] [place] [address] [place] [address] ProviderErika MD [address] [id number] Social History Tobacco Use Types Packs/Day Years [...] Medical. Performed by: JULIO CESAR CARVALHO MD-CAT. Triage Rn: ERASMO LÓPEZ PA. Notes: Procedure: Resection and [...]
--- OUTSIDE RECORDS SUMMARY | 2025-06-10 13:26 | XMS_ITS | Encounter Summary ---
Author Organization [employer] ([place], [place], [place], [place]) Address [address] [place] [address] Care Team Providers Care Homeowner Association Manager Name Role Phone Unavailable Primary Care Provider Unavailabl e Encounter Details Date Type Department Care Team (Late st Contact Info) Description 11/20/2018 Transcribed Document [facility] [place] [address] [place] [address] ProviderErika MD [address], [place] [id number] Social History Tobacco Use Types Packs/Day Years [...] Bedtime, Routine HEENT saliva substitutes - 1 [place], Buccal, Liquid, Q2H, PRN for Other (See [...] Radiology results Radiology Results (Last 48 hours) [id number] -- 11/16/2018 06:45 CR Chest 1 Vw [...] Shortness of breathCOMPARISON: 1 day priorFINDINGS: A Sebastian-Jovanna catheter tip terminates in the SVC. The Sebastian-Ganzcatheter has been retracted. The cardiac silhouette is [...] stable Electronically signed by Christina Saini Conversion Paint Striping Machine Operator Cerner at 12/08/2022 12:13 PM CDT documented in this encounter Plan of Treatment Not on file documented as of this encounter Visit Diagnoses Not on filedocumented in this encounter
--- OUTSIDE RECORDS SUMMARY | 2025-06-10 13:26 | XMS_ITS | Encounter Summary ---
Author Organization [employer] ([place], [place], [place], [place]) Address [address] [place] [address] Care Team Providers Care Power Plant Manager Name Role Phone Unavailable Primary Care Provider Unavailabl e Encounter Details Date Type Department Care Team (Late st Contact Info) Description 11/16/2018 Transcribed Document [facility] [place] [address] [place] [address] ProviderErika MD [address] [place] [address] Social History Tobacco Use Types [...] Ambulatory Legal Guardian : Spouse Support Person/Patient Emergency Medical Dispatcher : Yes Support Person/Pt Rep Name : Connie- Sumeet - son Support Person/Pt Rep Contact Information : [phone] home [phone] - cell Want Family/Rep/Phys Notified of Admit [...] : Patient, Medical Record Primary Language : [place] Preferred Communication Mode : Verbal Communication Barrier [...] Scale Risk Level : 25-45 Medium Risk [place] Fall Interventions : Adequate lighting, Assistive devices [...] Source : Measured Height Entry Format : [place] Height, Feet : 6 ft(Converted to: 183 cm, 72 Inch) Height, Inches : 1 Inch(Converted to: 0 ft 1 Inch, 2.54 cm) Clinical Height : 185.42 cm Weight Source : Standing scale Weight Entry Format : [place] Clinical Dosing Weight : 79.23 kg Weight, Pounds : 174 lb Weight, Ounces : 5 oz Body Surface Area (BSA) : 2.03 m2 Body Mass Index : 23 kg/m2 [place] Body Weight : 79 kg FROY NEIL [...] Electronically signed by Christina Saini Conversion Manager Inventory Management Cerner at 12/08/2022 12:19 PM CDT documented in this encounter Plan of Treatment Not on file documented as of this encounter Visit Diagnoses Not on filedocumented in this encounter
--- OUTSIDE RECORDS SUMMARY | 2025-06-10 13:26 | XMS_ITS | Encounter Summary ---
Author Organization [employer] ([place], [place], [place], [place]) Address [address] [place] [address] Care Team Providers Care Boiler Out Name Role Phone Unavailable Primary Care Provider Unavailabl e Encounter Details Date Type Department Care Team (Late st Contact Info) Description 11/20/2018 Transcribed Document [facility] [place] [address] [place] [address] ProviderErika MD [address] [place] [address] Social History Tobacco Use Types Packs/Day Years Used Date Smoking Tobacco: Never Assessed Sex and Gender Information Value Date Recorded Sex Assigned at Not on file Legal Sex Male 5:03 PM CDT Gender Identity Not on file Sexual Orientation Not on file documented as of this encounter Miscellaneous Notes * Cerner Conversion Note - Erika ProviderMD - 11/20/2018 9:36 AM CDT BENEFITS SPECIALIST Note Entered On: 11/24/2018 13:28 EDT Performed On: 11/24/2018 13:19 EDT by MAMTA SOLO, BENEFITS SPECIALIST Dysphagia Exercise Technique Dysphagia Therapy/Treatment Type #1 [...] Technique PO Trial #1 Consistency Trialed : [place] Oral Symptoms : None observed Pharyngeal Signs [...] 13:19 EDT Swallow Plan/Goals Swallow LTG Grid BENEFITS SPECIALIST Splicer Apprentice Goal #1 BENEFITS SPECIALIST [facility] Goal #2 Swallow LTG : Establish safe [...] Date Met : 11/22/2018 EDT MAMTA SOLO, [facility] - 11/24/2018 13:19 EDT MAMTA SOLO BENEFITS SPECIALIST - 11/24/2018 13:19 EDT MAMTA SOLO BENEFITS SPECIALIST - 11/24/2018 13:19 EDT MAMTA SOLO [facility] - 11/24/2018 13:19 EDT LTG Lang/Comm/Cog LTG BENEFITS SPECIALIST Splicer Apprentice Goal 1 [facility] Goal 2 Goals : Improved spoken language expression at the time of discharge Improved auditory/spoken language comprehension at the time of discharge Status : Initial Initial MAMTA SOLO [facility] - 11/24/2018 13:19 EDT MAMTA SOLO SLP - 11/24/2018 13:19 EDT STG Lang_Comm_Cog Motor Speech STG Grid Goal #1 Activity : Improve intelligibility of speech Status : Initial MAMTA SOLO [facility] - 11/24/2018 13:19 EDT Auditory Comprehension Grid Goal #1 Goal #2 Activity : Follow directions, 3 step commands simple Comprehend paragraph complex MAMTA SOLO [facility] - 11/24/2018 13:19 EDT MMATA SOLO [facility] - 11/24/2018 13:19 EDT Verbal Expression STG Grid Goal #1 Activity : Generate items in a category MAMTA SOLO [facility] - 11/24/2018 13:19 EDT Reading Comprehension STG Grid Goal #1 Activity : Visual perception deficits MAMTA SOLO [facility] - 11/24/2018 13:19 EDT Attention STG Grid Goal #1 Activity : Other: Probe Status : Goal met Date Met : 11/24/2018 TGT MAMTA SOLO [facility] - 11/24/2018 13:19 EDT Memory STG Grid Goal #1 Goal #2 Goal #3 Activity : Other: Probe Improve short term functional delayed Improve short term working memory Status : Goal met Initial Initial Date Met : 11/24/2018 TGT MAMTA SOLO [facility] - 11/24/2018 13:19 EDT MAMTA SOLO [facility] - 11/24/2018 13:19 EDT MAMTA SOLO [facility] - 11/24/2018 13:19 EDT Problem Solving [...] SOLO SLP - 11/24/2018 13:19 EDT Subjective/Assessment/Plan BENEFITS SPECIALIST Patient Concern : Pt was awake and lying in bed. Agreeable to tx. BENEFITS SPECIALIST Therapy/Treatment Asmt Cmnt : Pt seen for speech and dysphagia tx. Great participation in tx. Requires continuous cues for accurate completion of timing exercises. No overt pharyngeal patterns with nectar liquids. Further cogntive probe completed. Pt presents with a moderate cognitive deficits characterized by impairments in memory, orientation, and problem solving. POC updated. BENEFITS SPECIALIST Plan : Continue per POC. Repeat swallow study Thursday. MAMTA SOLO SLP - 11/24/2018 13:19 EDT Education Barriers To Learning : Cognitive deficit Individuals Taught : Patient Readiness to Learn : Cooperative Readiness to Learn : Explanation MAMTA SOLO SLP - 11/24/2018 13:19 EDT BENEFITS SPECIALIST Education Assessment Grid 1 Evaluation Results : Verbalizes understanding MAMTA SOLO SLP - 11/24/2018 13:19 EDT BENEFITS SPECIALIST Education Assessment Grid 2 Treatment Plan : Verbalizes understanding MAMTA SOLO SLP - 11/24/2018 13:[address] [facility] [facility] BENEFITS SPECIALIST Charges Speech Therapy : 1 Treatment-Swallowing : 1 MAMTA SOLO SLP - 11/24/2018 13:19 EDT Anticipated Discharge Needs, BENEFITS SPECIALIST Anticipated Discharge to OT : Rehab, high intensity Recommend Continued Therapy at Discharge : Yes MAMTA SOLO SLP - 11/24/2018 13:19 EDT documented in this encounter Plan of Treatment Not on file documented as of this encounter Visit Diagnoses Not on filedocumented in this encounter
--- OUTSIDE RECORDS SUMMARY | 2025-06-10 13:27 | XMS_ITS | Encounter Summary ---
Author Organization [employer] ([place], [place], [place], [place]) Address [address] [place] [address] Care Team Providers Care Senior Research Consultant Name Role Phone Unavailable Primary Care Provider Unavailabl e Encounter Details Date Type Department Care Team (Late st Contact Info) Description 11/16/2018 Transcribed Document [facility] [place] [address] [place] [address] ProviderErika MD [address] [place] [address] Social History Tobacco Use Types [...] 11/16/2018 12:27 EDT by Lorin Pratt, [facility] Phone Call for Consults Consult Phone Call/Page Attempt : Other: Valve: no call Lorin Pratt [facility] - 11/16/2018 13:34 EDT Electronically signed by Christina Saini Conversion Telegraphic Typewriter Installer Cerner at 12/08/2022 12:36 PM CDT documented in this encounter Plan of Treatment Not on file documented as of this encounter Visit Diagnoses Not on filedocumented in this encounter
--- OUTSIDE RECORDS SUMMARY | 2025-06-10 13:27 | XMS_ITS | Encounter Summary ---
Author Organization [employer] ([place], [place], [place], [place]) Address [address] [place] [address] Care Team Providers Care Gear Hobber Set Up Operator Name Role Phone Unavailable Primary Care Provider Unavailabl e Encounter Details Date Type Department Care Team (Late st Contact Info) Description 11/28/2018 Transcribed Document [facility] [place] [address] [place] [address] ProviderErika MD [address] [place], [...]
--- OUTSIDE RECORDS SUMMARY | 2025-06-10 13:27 | XMS_ITS | Encounter Summary ---
Author Organization [employer] ([place], [place], [place], [place]) Address [address] [place] [address] Care Team Providers Care Accounting Lecturer Name Role Phone Unavailable Primary Care Provider Unavailabl e Encounter Details Date Type Department Care Team (Late st Contact Info) Description 11/28/2018 Transcribed Document [facility] [place] [address] [place] [address] ProviderErika MD [address] [place], [place] [phone] Social History Tobacco Use Types Packs/Day Years [...] 1940 Associated Diagnoses: CAD (coronary artery disease), [place] coronary artery; Thrombocytopenia; Coronary artery disease; HTN [...] Oral, At Bedtime saliva substitutes: 1 [place], Buccal, Q2H, PRN: Other (See Comment) warfarin: [...] Q1H saliva substitute liq 59 mL 1 [place], Buccal, Q2H Problem list: Medical Aneurysm, thoracic aortic / SNOMED CT 6962260574 / Confirmed Aortic valve insufficiency / SNOMED CT 397199835 / Confirmed Arthritis / SNOMED CT 8698720 / Confirmed At risk for sleep apnea / IMO 11123661 / Confirmed CAD (coronary artery disease) / SNOMED CT 40744520 / Confirmed HTN - Hypertension / SNOMED CT 5859478497 / Confirmed Hypothyroidism / SNOMED CT 65510510 / Confirmed Frequent urination / SNOMED CT 288503884 / Confirmed Nocturia / SNOMED CT 413465271 / Confirmed Prostate stricture / SNOMED CT 29995117 / Confirmed, Active Problems (13) Aneurysm, thoracic [...] swelling - improved today. Integumentary: Warm, Dry, [place], incision is C/D/I. Neurologic: Alert, Oriented, left [...] of discharge- CM has sent information to [facility] -Transfer to [facility] 11/24/18 -POD#8 -Awaiting transfer to [facility] -Awaiting response from [facility] 11/25/18 -left upper extremity venous doppler - doppler this am positive for LUE DVT - will start coumadin and heparin bridge -awaiting [facility] 11/26/18 -Heparin drip and coumadin for LUE DVT Left arm swelling improved today INR 1.1 today, INR goal 2-3 Possibly transfer to [facility] this weekend 11/27/18: Left arm swelling continues to improve Continues on Coumadin and heparin bridge INR: 1.4 (1.1 yesterday) goal: 2 to 3 [facility] soon,? Tomorrow 11/28/18 BP in 70s-80s this [...] Prophylaxis: SCDs Diagnosis CAD (coronary artery disease), [place] coronary artery - Admitting, Medical. Thrombocytopenia - [...] Medical. Electronically signed by Christina Saini Conversion Superintendent Drilling And Production Cerner at 12/08/2022 12:16 PM CDT documented in this encounter Plan of Treatment Not on file documented as of this encounter Visit Diagnoses Not on filedocumented in this encounter
--- OUTSIDE RECORDS SUMMARY | 2025-06-10 13:27 | XMS_ITS | Encounter Summary ---
Author Organization [employer] ([place], [place], [place], [place]) Address [address] [place] [address] Care Team Providers Care Lumber Puller Name Role Phone Unavailable Primary Care Provider Unavailabl e Encounter Details Date Type Department Care Team (Late st Contact Info) Description 11/28/2018 Transcribed Document [facility] [place] [address] [place] [address] ProviderErika MD [address] [place], [place] [address] Social History Tobacco Use Types Packs/Day Years [...] EDT Electronically signed by Christina Saini Conversion Global Transportation Manager Cerner at 12/08/2022 12:33 PM CDT documented in this encounter Plan of Treatment Not on file documented as of this encounter Visit Diagnoses Not on filedocumented in this encounter
--- OUTSIDE RECORDS SUMMARY | 2025-06-10 13:27 | XMS_ITS | Encounter Summary ---
Author Organization [employer] ([place], [place], [place], [place]) Address [address] [place] [address] Care Team Providers Care Billet Sawyer Name Role Phone Unavailable Primary Care Provider Unavailabl e Encounter Details Date Type Department Care Team (Late st Contact Info) Description 11/16/2018 Transcribed Document [facility] Family Medicine [address] [place] [address] ProviderErika MD [address], [place] [...] PROCEDURE: 1. Left radial arterial line. 2. [place]-Jovanna catheter. SURGEON: Porfirio Gaxiola IV, MD Procedure [...] introducer was applied over guidewire, then a [place]-Jovanna catheter was advanced down MAC introducer to [...]
--- OUTSIDE RECORDS SUMMARY | 2025-06-10 13:28 | XMS_ITS | Encounter Summary ---
Author Organization [employer] ([place], [place], [place], [place]) Address [address] [place] [address] Care Team Providers Care Envelope Adjuster Name Role Phone Unavailable Primary Care Provider Unavailabl e Encounter Details Date Type Department Care Team (Late st Contact Info) Description 11/05/2018 Transcribed Document [facility] [place] Family Medicine [address] [place] [address] ProviderErika MD [address] [place] [address] Social History Tobacco Use Types Packs/Day Years Used Date Smoking Tobacco: Never Assessed Sex and Gender Information Value Date Recorded Sex Assigned at Not on file Legal Sex Male 5:03 PM CDT Gender Identity Not on file Sexual Orientation Not on file documented as of this encounter Miscellaneous Notes * Cerner Conversion Note - Erika ProviderMD - 11/05/2018 12:48 PM CDT [address] [address] Patient Copy Patient Information: Name: DOTTIE VILLASENOR Current Date: 11/05/2018 12:48:54 : 1940 Patient Address: [address] [place] [id number] Patient Attending Physician: LEYLA ARMENDARIZ MD-CAR Primary Care Provider: DEMETRICE ARMIJO NP-JORGE Primary Care Provider Discharge Diagnosis: Weight on Admission: 170 lb, 0 oz Comment: Follow-up Instructions: With: Address: When: JULIO CESAR GAXIOLA [address] [place] [address], [address] [address] Business (1) 1:30 PM Comments: Follow up with Dr. Gaxiola , surgeon, October at 1:30 pm With: Address: When: JULIO CESAR [address] [place] [address] Istpika (1) 1:15 PM Comments: Follow up with [...] you are awake and alert. ??? Take mwlg-uxd-ikcnfen and prescription medicines only as told by [...] 05/31/2014 Document Revised: 01/12/2017 Document Reviewed: 11/29/2016 [employer] Interactive Patient Education ? 2017 SayNow. Radial Site Care Introduction Refer to this [...] 02/26/2006 Document Revised: 01/15/2017 Document Reviewed: 01/11/2014 [employer] Interactive Patient Education ? 2017 SayNow. CIGARETTE SMOKING: The facts are clear, cigarette smoking will shorten your life. Smoking can cause many illnesses along the way. As a healthcare provider, we recommend that you stop smoking. Assistance with quitting is available by contacting 4-699-WJKQ-NOW. This is a free resource providing counseling, [...] Be sure to sign up for the [employer] patient portal, which gives you 16/03 access to your medical information ??? including these discharge instructions ??? using your computer, smartphone, or tablet. Just go to [employer] to get started. Questions? Call . [facility] would like to thank you for allowing us to assist you with your healthcare needs. HAMILTON Jarvis ROBERT H, (or insurance verification representative) have received the above patient education materials/instructions and have verbalized understanding: Patient Signature _ Date/Time Patient Casino Gaming Inspector Signature (if needed) Date/Time Clinician/Hospital Casino Gaming Inspector Signature (if needed) Date/Time Electronically signed by Parveen, [facility] Conversion Anesthesiologist/Physician Cerner at 12/08/2022 12:14 PM CDT documented in this encounter Plan of Treatment Not on file documented as of this encounter Visit Diagnoses Not on filedocumented in this encounter
--- OUTSIDE RECORDS SUMMARY | 2025-06-10 13:28 | XMS_ITS | Encounter Summary ---
Author Organization [email or web address] ([place], [place], [place], [place]) Address [address] [place] [address] Care Team Providers Care Psychiatric Technician Name Role Phone Unavailable Primary Care Provider Unavailabl e Encounter Details Date Type Department Care Team (Late st Contact Info) Description 11/16/2018 Transcribed Document [facility] [place] Family Medicine [address] [place] [address] ProviderErika MD [address], [place] [id number] Social History Tobacco Use Types Packs/Day Years [...] All Problems Prostate stricture / SNOMED CT 89071832 / Confirmed Restless legs syndrome / SNOMED CT 62123497 / Confirmed Nocturia / SNOMED CT 908605244 / Confirmed Cancer of skin of face / SNOMED CT 9894553011 / Confirmed Frequent urination / SNOMED CT 521619992 / Confirmed Hypothyroidism / SNOMED CT 25909570 / Confirmed HTN - Hypertension / SNOMED CT 0226280722 / Confirmed Disorder of prostate ( enlarged) / SNOMED CT 50970970 / Confirmed CAD (coronary artery disease) / SNOMED CT 12409956 / Confirmed At risk for sleep apnea / IMO 72098143 / Confirmed Arthritis / SNOMED CT 2258609 / Confirmed Aortic valve insufficiency / SNOMED CT 012189879 / Confirmed Aneurysm, thoracic aortic / SNOMED CT 4317927901 / Confirmed, Active Problems (13) Aneurysm, thoracic aortic Aortic valve insufficiency Arthritis At risk for sleep apnea CAD (coronary artery disease) Cancer of skin of face Disorder of prostate ( enlarged) Frequent urination HTN - Hypertension Hypothyroidism Nocturia Prostate stricture Restless legs syndrome Histories Past Medical History: Active HTN - Hypertension (9146591658) Hypothyroidism (08921827) Family History: Entire family history is negative. [...] EDT Height Source Measured Height Entry Format [place] Height/Length, WALLISIAN (ft) 6 ft Height/Length W[place] 1 Inch CLINICALHEIGHT 185.42 cm [place] Body Weight 79 kg Weight Source Standing scale Weight Entry Format [place] Weight Kyrgyz lb 174 lb Weight Kyrgyz oz 5 oz CLINICALWEIGHT 79.23 kg Body [...] of motion, Normal strength. Integumentary: Warm, Dry, [place]. Neurologic: Alert, Oriented. Psychiatric: Cooperative, Appropriate mood [...] % 32.4 % Lymph # 2.32 x10(3)/uL [place] % 9.5 % HI [place] # 0.68 K/uL Eos % 1.1 % [...] Color Yellow Urine Appearance Clear Urine Specific [place] 1.016 Urine pH Dipstick 6.5 Urine Leukocyte Esterase Negative Urine Nitrite Negative Urine Protein Dipstick Negative Urine Glucose Dipstick Negative Urine Ketones Dipstick Negative Urine Urobilinogen Dipstick 0.2 EU/dL Urine Bilirubin Dipstick Negative Urine Blood Dipstick Negative 11/15/2018 13:33 EDT RBC Product Ready RBC Ready # of Units 2 . Impression and Plan Condition: Stable. Electronically signed by Christina Saini Conversion Plastic Die Maker Apprentice Cerner at 12/08/2022 12:35 PM CDT documented in this encounter Plan of Treatment Not on file documented as of this encounter Visit Diagnoses Not on filedocumented in this encounter
--- OUTSIDE RECORDS SUMMARY | 2025-06-10 13:28 | XMS_ITS | Encounter Summary ---
Author Organization [employer] ([place], [place], [place], [place]) Address [address] [place] [address] Care Team Providers Care Block Sorter Name Role Phone Unavailable Primary Care Provider Unavailabl e Encounter Details Date Type Department Care Team (Late st Contact Info) Description 11/05/2018 Transcribed Document [facility] Cardiology [address] [place] [address] Lc Armendariz MD [address] [facility] [address] [place] [address] Social History Tobacco Use Types [...] 1940 Associated Diagnoses: None Author: LC ARMENDARIZ MD-[facility] Basic Information PCP: [facility]; Porfirio [...] All Problems Prostate stricture / SNOMED CT 01393692 / Confirmed HTN - Hypertension / SNOMED CT 2641169703 / Confirmed Hypothyroidism / SNOMED CT 77836911 / Confirmed Aneurysm / SNOMED CT 5987709736 / Confirmed Disorder of prostate / SNOMED CT 92293212 / Confirmed Thyroid disease / SNOMED CT 855410471 / Confirmed Restless legs syndrome / SNOMED CT 02137191 / Confirmed Cancer of skin of face / SNOMED CT 2041396530 / Confirmed At risk for sleep apnea / IMO 98697892 / Confirmed Resolved: Bladder stone / SNOMED CT 564142572 Histories No education data available. Social & Psychosocial Habits Alcohol 04/16/2017 Alcohol Use History, Social Habits No Alcohol Use in Last Twelve Months No Substance Abuse 04/16/2017 Recreational Drug Use History No Recreational Drug Use Last 12 Months No Tobacco 04/16/2017 Smoking Status Never smoker Past Medical History: Active HTN - Hypertension (2630868916) Hypothyroidism (71052660) Family History: Entire family history is negative. [...] of motion, Normal strength. Integumentary: Warm, Dry, [place]. Neurologic: Alert, Oriented. Psychiatric: Cooperative. Review / [...]
--- OUTSIDE RECORDS SUMMARY | 2025-06-10 13:28 | XMS_ITS | Encounter Summary ---
Author Organization [employer] ([place], [place], [place], [place]) Address [address] [place] [address] Care Team Providers Care Sap Manager Name Role Phone Unavailable Primary Care Provider Unavailabl e Encounter Details Date Type Department Care Team (Late st Contact Info) Description 11/21/2018 Transcribed Document [facility] Family Medicine [address] [place] [address] ProviderErika MD [address] [place] [address] Social History Tobacco Use Types [...]
--- OUTSIDE RECORDS SUMMARY | 2025-06-10 13:28 | XMS_ITS | Encounter Summary ---
Author Organization [employer] ([place], [place], [place], [place]) Address [address] [place] [address] Care Team Providers Care Interior Painter Name Role Phone Unavailable Primary Care Provider Unavailabl e Encounter Details Date Type Department Care Team (Late st Contact Info) Description 11/05/2018 Transcribed Document [facility] [place] Family Medicine [address] [place] [address] ProviderErika MD [address] [place] [address] Social History Tobacco Use Types [...] Source : Stated Height Entry Format : [place] Height, Feet : 6 ft(Converted to: 183 cm, 72 Inch) Height, Inches : 1 Inch(Converted to: 0 ft 1 Inch, 2.54 cm) Clinical Height : 185.42 cm Weight Source : Standing scale Weight Entry Format : [place] Clinical Dosing Weight : 77.27 kg Weight, Pounds : 170 lb Body Surface Area (BSA) : 2.01 m2 Body Mass Index : 22.5 kg/m2 [place] Body Weight : 79 kg SRIRAM PATEL [...] Any Spiritual/Cultural Needs or Requests : No Muslim Preference : Shinto SRIRAM PATEL RN - 11/05/2018 8:49 EDT [...] Obtained From : Patient Primary Language : Ukrainian Preferred Communication Mode : Verbal Communication Barrier [...] Scale Risk Level : 0-24 Low Risk [place] Fall Interventions : Adequate lighting, Bed in [...] rendition version of the form. Kavin Coma [place] Best Motor Response : Obey commands Kavin Best Verbal Response : Oriented [place] Eye Opening Response : Spontaneous Kavin Coma Score : 15 SRIRAM PATEL RN - 11/05/2018 8:49 EDT documented in this encounter Plan of Treatment Not on file documented as of this encounter Visit Diagnoses Not on filedocumented in this encounter
--- OUTSIDE RECORDS SUMMARY | 2025-06-10 13:28 | XMS_ITS | Encounter Summary ---
Author Organization [employer] ([place], [place], [place], [place]) Address [address] [place] [address] Care Team Providers Care Lapper Name Role Phone Unavailable Primary Care Provider Unavailabl e Encounter Details Date Type Department Care Team (Late st Contact Info) Description 11/16/2018 Transcribed Document [facility] [address] [place] [address] Niles Nunez MD [address] [place], [place] [id number] Social History Tobacco Use Types Packs/Day Years [...]
--- OUTSIDE RECORDS SUMMARY | 2025-06-10 13:28 | XMS_ITS | Encounter Summary ---
Author Organization [employer] ([place], [place], [place], [place]) Address [address] [place] [address] Care Team Providers Care Mutuel Cashier Name Role Phone Unavailable Primary Care Provider Unavailabl e Encounter Details Date Type Department Care Team (Late st Contact Info) Description 11/21/2018 Transcribed Document [facility] [place] [address] [place] [address] ProviderErika MD [address] [place] [address] Social History Tobacco Use Types [...] 11/21/2018 9:37 EDT by José Miguel Tran, [facility] Phone Call for Consults Consult Phone Call/Page Attempt : Other: Nurse spoke to Dr. Amaro. José Miguel Tran [facility] COORD - 11/21/2018 9:40 EDT documented in this encounter Plan of Treatment Not on file documented as of this encounter Visit Diagnoses Not on filedocumented in this encounter
--- OUTSIDE RECORDS SUMMARY | 2025-06-10 13:28 | XMS_ITS | Encounter Summary ---
Author Organization [employer] ([place], [place], [place], [place]) Address [address] [place] [address] Care Team Providers Care Retail Banker Name Role Phone Unavailable Primary Care Provider Unavailabl e Encounter Details Date Type Department Care Team (Late st Contact Info) Description 11/28/2018 Transcribed Document [facility] [place] Family Medicine [address] [place] [address] ProviderErika MD [address] [place] [address] Social History Tobacco Use Types [...] Jacob Coy MD Electronically signed by Parveen [facility] Conversion Wound Specialist Cerner at 12/08/2022 12:31 PM CDT documented in this encounter Plan of Treatment Not on file documented as of this encounter Visit Diagnoses Not on filedocumented in this encounter
--- OUTSIDE RECORDS SUMMARY | 2025-06-10 13:28 | XMS_ITS | Encounter Summary ---
Author Organization [employer] ([place], [place], [place], [place]) Address [address] [place] [address] Care Team Providers Care Kiln Stacker Name Role Phone Unavailable Primary Care Provider Unavailabl e Encounter Details Date Type Department Care Team (Late st Contact Info) Description 11/16/2018 Transcribed Document [facility] [place] [address] [place] [address] ProviderErika MD [address] [place] [address] Social History Tobacco Use Types [...] - 11/16/2018 18:59 EDT Electronically signed by Parveen hilario Conversion Mechanical Product Design Engineer Cerner at 12/08/2022 12:37 PM CDT documented in this encounter Plan of Treatment Not on file documented as of this encounter Visit Diagnoses Not on filedocumented in this encounter
--- OUTSIDE RECORDS SUMMARY | 2025-06-10 13:28 | XMS_ITS | Encounter Summary ---
Author Organization [employer] ([place], [place], [place], [place]) Address [address] [place] [address] Care Team Providers Care Excelsior Machine Operator Name Role Phone Unavailable Primary Care Provider Unavailabl e Encounter Details Date Type Department Care Team (Late st Contact Info) Description 11/05/2018 Transcribed Document [facility] [place] Family Medicine [address] [place] [address] ProviderErika MD [address] [place] [address] Social History Tobacco Use Types [...] you are awake and alert. ??? Take tteg-peg-ugjrrve and prescription medicines only as told by [...] 05/31/2014 Document Revised: 01/12/2017 Document Reviewed: 11/29/2016 [employer] Interactive Patient Education ? 2017 [employer] Pulmonary Medicine Radial Site Care Introduction [...] 01/11/2014 Elsevier Interactive Patient Education ? 2017 [employer] Electronically signed by Christina Saini Conversion Hostess Party Sales Representative Felipe at 12/08/2022 12:35 PM CDT documented in this encounter Plan of Treatment Not on file documented as of this encounter Visit Diagnoses Not on filedocumented in this encounter
--- OUTSIDE RECORDS SUMMARY | 2025-06-10 13:28 | XMS_ITS | Encounter Summary ---
Author Organization [employer] ([place], [place], [place], [place]) Address [address] [place] [address] Care Team Providers Care Occupational Health Physician Name Role Phone Unavailable Primary Care Provider Unavailabl e Encounter Details Date Type Department Care Team (Late st Contact Info) Description 11/28/2018 Transcribed Document [facility] [place] Family Medicine [address] [place] [address] ProviderErika MD [address] [place], [...] change in location/level of care Rapid Response Occupational Health Physician #1 : COREY MACHUCA, RN COREY MACHUCA, RN - 11/28/2018 4:37 EDT Electronically signed by Parveen [facility] Conversion Construction Grip Cerner at 12/08/2022 12:39 PM CDT documented in this encounter Plan of Treatment Not on file documented as of this encounter Visit Diagnoses Not on filedocumented in this encounter
--- OUTSIDE RECORDS SUMMARY | 2025-06-10 13:28 | XMS_ITS | Encounter Summary ---
Author Organization [employer] ([place], [place], [place], [place]) Address [address] [place] [address] Care Team Providers Care Dolly Pusher Name Role Phone Unavailable Primary Care Provider Unavailabl e Encounter Details Date Type Department Care Team (Late st Contact Info) Description 11/26/2018 Transcribed Document [facility] [place] Family Medicine [address] [place] [address] ProviderErika MD [address] [place] [address] Social History Tobacco Use Types [...] On: 11/26/2018 9:15 EDT by JOSSUE RODRÍGUEZ ADMIN DIR General Information Visit Type, ADMIN DIR : Re-Evaluation Patient Orders : ADMIN DIR Fxoliver Limitation Documentation x 1 -111 Start: 11/25/18 10:29:25 EDT - SYSTEM, SYSTEM Speech Language Pathology Modified Barium Swallow Study - Start: 11/26/18 7:00:00 EDT, Routine, For Other (see special instructions), Dysphagia -111 GISSEL ZHANG PA ADMIN DIR Fxnl Limitation Documentation - Start: 11/20/18 9:37:47 EDT, Continuous Order -111 SYSTEM, SYSTEM Speech Language Pathology Additional Tx - Start: 11/20/18 9:36:00 EDT, For Dysphagia, Continuous Order -111 Admission Date : Admission Date/Time: 11/16/18 06:45:00 Medical Chart Reviewed, ADMIN DIR : Yes Personal Devices : Personal Devices No Devices Recorded Assistive Devices : Assistive Devices No Devices Recorded Active Diagnoses : 11/23/2018 00:00 Cerebral infarction, unspecified 11/17/2018 00:00 Atherosclerotic heart disease of mi'kmaq coronary artery without angina pectoris 11/17/2018 00:00 Essential (primary) hypertension 11/17/2018 00:00 Hypothyroidism, unspecified 11/17/2018 00:00 Nonrheumatic aortic (valve) insufficiency 11/17/2018 00:00 Restless legs syndrome 11/17/2018 00:00 Thoracic aortic aneurysm, without rupture 11/17/2018 00:00 Thrombocytopenia, unspecified 11/16/2018 00:00 Atherosclerotic heart disease of mi'kmaq coronary artery without angina pectoris 11/16/2018 00:00 Nonrheumatic aortic (valve) insufficiency 11/16/2018 00:00 Thoracic aortic aneurysm, without rupture Therapy Diagnosis, ADMIN DIR : functional oropharyngeal skills Previous Speech/Language Evaluations : N/A Previous Swallow Precautions : Bedside 11/20 recommended instrumental prior to initiating PO diet, FEES recommended reg/nectar. Pt has participated in tx and is ready for a repeat study Previous Cognitive Evaluations : this admit Diet/Intake Prior to Current Admission : Regular/thin Diet/Intake During Current Admission : reg/thin following MBS Intubation Comment, ADMIN DIR : 11/16-11/17 Vital Signs RTF : Vitals [...] 9:15 EDT General Status Patient Received Status, ADMIN DIR : Up in chair Patient Left Status, ADMIN DIR : Up in chair JOSSUE RODRÍGUEZ SLP [...] Consistencies Trialed MB/VFSS : Thin by straw, [place] by straw, Pudding JOSSUE RODRÍGUEZ, ERIC - 11/26/2018 9:15 EDT Swallow Impressions Impressions, MBSS/VFSS : Functional swallow for oral intake JOSSUE RODRÍGUEZ SLP - 11/26/2018 9:15 EDT 8 Point Penetration/Aspiration Grid Thin by Straw : 1 [place] by Straw : 1 Pudding : 1 [...] Discussed briefly with CTS PA. JOSSUE RODRÍGUEZ, ADMIN DIR - 11/26/2018 9:15 EDT Swallow Recommendations Recommended Diet Type, SwRec : Regular Recommended Liquid Diet, SwRec : Thin Swallow Position, SwRec : Upright 90 degrees Supervision Level w/Meals, SwRec : Independent, modified Recommended Med Present, SwRec : As per nursing JOSSUE RODRÍGUEZ SLP - 11/26/2018 9:15 EDT Therapy Indication Assessment ADMIN DIR Indicated : No ADMIN DIR Not Indicated : At prior level of function JOSSUE RODRÍGUEZ SLP - 11/26/2018 9:15 EDT Swallow Plan/Goals Swallow LTG Grid ADMIN DIR Cathodic Protection Technician Goal #1 ADMIN DIR Cathodic Protection Technician Goal #2 Swallow LTG : Establish safe [...] JOSSUE RODRÍGUEZ SLP - 11/26/2018 9:15 EDT ADMIN DIR Education Assessment Grid 1 Aspiration : Needs further teaching Diet Recommendation : Needs further teaching JOSSUE RODRÍGUEZ SLP - 11/26/2018 9:[address] [facility] ADMIN DIR Charges Modified Barium Swallow : 1 JOSSUE RODRÍGUEZ SLP - 11/26/2018 9:15 EDT documented in this encounter Plan of Treatment Not on file documented as of this encounter Visit Diagnoses Not on filedocumented in this encounter
--- OUTSIDE RECORDS SUMMARY | 2025-06-10 13:28 | XMS_ITS | Encounter Summary ---
Author Organization [employer] ([place], [place], [place], [place]) Address [address] [place] [address] Care Team Providers Care Fish Hatchery Inspector Name Role Phone Unavailable Primary Care Provider Unavailabl e Encounter Details Date Type Department Care Team (Late st Contact Info) Description 11/26/2018 Transcribed Document [facility] [address] [place] [address] ProviderErika MD [address] [place] [address] Social History Tobacco Use Types [...]
--- OUTSIDE RECORDS SUMMARY | 2025-06-10 13:28 | XMS_ITS | Encounter Summary ---
Author Organization [employer] ([place], [place], [place], [place]) Address [address] [place] [address] Care Team Providers Care Senior Materials Analyst Name Role Phone Unavailable Primary Care Provider Unavailabl e Encounter Details Date Type Department Care Team (Late st Contact Info) Description 11/05/2018 Transcribed Document [facility] [place] Family Medicine [address] [place] [address] ProviderErika MD [address] [place] [address] Social History Tobacco Use Types [...] 11/05/2018 12:46 EDT Electronically signed by Parveen [facility] Conversion Plating Engineer Cerner at 12/08/2022 12:20 PM CDT documented in this encounter Plan of Treatment Not on file documented as of this encounter Visit Diagnoses Not on filedocumented in this encounter
--- OUTSIDE RECORDS SUMMARY | 2025-06-10 13:28 | XMS_ITS | Encounter Summary ---
Author Organization [employer] ([place], [place], [place], [place]) Address [address] [place] [address] Care Team Providers Care Mechanical Engineering Professor Name Role Phone Unavailable Primary Care Provider Unavailabl e Encounter Details Date Type Department Care Team (Late st Contact Info) Description 11/26/2018 Transcribed Document [facility] [place] [address] [place] [address] ProviderErika MD [address] [place] [address] Social History Tobacco Use Types [...] (not seen on 11/25/18) followed up with [facility] today regarding possible admission - [...] Care Management Note Report : LUCIE, ODALYS, Rn-Lapel Stitcher - 11/24/18 13:22:19 11/24/18 Andra from [facility] called to let me know they started a precert on this pt. CF ODALYS FAULKNER, Rn-Lapel Stitcher - 11/22/18 13:56:32 11/22/18 Pt has had a cva. Spoke to his Connie and son Sumeet at the bedside. Pt is lfacid on the left side. Discussed the need for STR and they decided on [facility]. Sent pt info via [employer] to [facility]. CF Documentation Status Complete : Yes ANGELA NARI, Production Mechanic - 11/26/2018 11:16 EDT Electronically signed by Parveen [facility] Conversion Branding Specialist Cerner at 12/08/2022 12:12 PM CDT documented in this encounter Plan of Treatment Not on file documented as of this encounter Visit Diagnoses Not on filedocumented in this encounter
--- OUTSIDE RECORDS SUMMARY | 2025-06-10 13:28 | XMS_ITS | Encounter Summary ---
Author Organization [employer] ([place], [place], [place], [place]) Address [address] [place] [address] Care Team Providers Care Electrical Machine Builder Name Role Phone Unavailable Primary Care Provider Unavailabl e Encounter Details Date Type Department Care Team (Late st Contact Info) Description 11/05/2018 Transcribed Document [facility] [place] [address] [place] [address] ProviderErika MD [address] [place] [address] Social History Tobacco Use Types [...]
--- OUTSIDE RECORDS SUMMARY | 2025-06-10 13:28 | XMS_ITS | Encounter Summary ---
Author Organization [employer] ([place], [place], [place], [place]) Address [address] [place] [address] Care Team Providers Care Waterway Traffic Checker Name Role Phone Unavailable Primary Care Provider Unavailabl e Encounter Details Date Type Department Care Team (Late st Contact Info) Description 11/28/2018 Transcribed Document [facility] [place] Family Medicine [address] [place] [address] ProviderErika MD [address] [place] [address] Social History Tobacco Use Types [...]
--- OUTSIDE RECORDS SUMMARY | 2025-06-10 13:28 | XMS_ITS | Encounter Summary ---
Author Organization [email or web address] ([place], [place], [place], [place]) Address [address] [place] [address] Care Team Providers Care Silk Washing Machine Operator Name Role Phone Unavailable Primary Care Provider Unavailabl e Encounter Details Date Type Department Care Team (Late st Contact Info) Description 11/15/2018 Transcribed Document [facility] [place] Family Medicine [address] [place] [address] ProviderErika MD [address] [place] [address] Social History Tobacco Use Types [...] Source : Measured Height Entry Format : Andrew Height, Feet : 6 ft(Converted to: 183 cm, 72 Inch) Height, Inches : 1 Inch(Converted to: 0 ft 1 Inch, 2.54 cm) Clinical Height : 185.42 cm Weight Source : Standing scale Weight Entry Format : Andrew Clinical Dosing Weight : 79.23 kg Weight, Pounds : 174 lb Weight, Ounces : 5 oz Body Surface Area (BSA) : 2.03 m2 Body Mass Index : 23 kg/m2 [place] Body Weight : 79 kg ANGELA KEY [...] Ambulatory Legal Guardian : Spouse Support Person/Patient Picking Machine Operator : Yes Support Person/Pt Rep Name : Connie- Sumeet - son Support Person/Pt Rep Contact Information : [phone] home [phone] - cell Want Family/Rep/Phys Notified of Admit : No Emergency Contact #1 : Connie Emergency Contact #1 Emergency Contact #1 Relationship : Emergency Contact #2 : Sumeet Emergency Contact #2 Emergency Contact #2 Relationship : son Information Obtained From : Patient, Medical Record Primary Language : Bhutanese Preferred Communication Mode : Verbal Communication Barrier [...] 11/15/2018 13:52 EDT Electronically signed by Parveen [facility] Conversion Coal Deliverer Cerner at 12/08/2022 12:30 PM CDT documented in this encounter Plan of Treatment Not on file documented as of this encounter Visit Diagnoses Not on filedocumented in this encounter
--- OUTSIDE RECORDS SUMMARY | 2025-06-10 13:29 | XMS_ITS | Encounter Summary ---
Author Organization [employer] ([place], [place], [place], [place]) Address [address] [place] [address] Care Team Providers Care Biofuels Plant Manager Name Role Phone Unavailable Primary Care Provider Unavailabl e Encounter Details Date Type Department Care Team (Late st Contact Info) Description 11/19/[address] [facility] [place] Family Medicine [address] [place] [address] ProviderErika MD [address] [place], [place] [id number] Social History Tobacco Use Types Packs/Day Years [...] 1940 Associated Diagnoses: CAD (coronary artery disease), [place] coronary artery; Thrombocytopenia; Coronary artery disease; HTN [...] S1, S2, No edema. Integumentary: Warm, Dry, [place], incision is C/D/I, He did not follow [...] Prophylaxis: SCDs Diagnosis CAD (coronary artery disease), [place] coronary artery - Admitting, Medical. Thrombocytopenia - [...]
--- OUTSIDE RECORDS SUMMARY | 2025-06-10 13:29 | XMS_ITS | Encounter Summary ---
Author Organization [employer] ([place], [place], [place], [place]) Address [address] [place] [address] Care Team Providers Care Lumber Press Operator Name Role Phone Unavailable Primary Care Provider Unavailabl e Encounter Details Date Type Department Care Team (Late st Contact Info) Description 11/19/2018 Transcribed Document [facility] Cardiology [address] [place] [address] Lc Armendariz MD [address] [facility] [address] [place] [address] Social History Tobacco Use Types [...] mg, Oral, At Bedtime saliva substitutes: 1 [place], Buccal, Q2H, PRN: Other (See Comment) sodium [...] of motion, Normal strength. Integumentary: Warm, Dry, [place]. Neurologic: Alert, Oriented. Psychiatric: Cooperative, Appropriate mood & affect. Results Review NOV 19 04:08 138 105 21 / H 184 4.0 28 0.70 \ NOV 19 04:08 \ L 10.0 / H 15.0 L 101 / L 30.3 \ Radiology Results (Last 48 hours) [id number] -- 11/16/2018 06:45 CR Chest 1 Vw [...]
--- OUTSIDE RECORDS SUMMARY | 2025-06-10 13:29 | XMS_ITS | Encounter Summary ---
Author Organization [employer] ([place], [place], [place], [place]) Address [address] [place] [address] Care Team Providers Care Surgical Services Tech Name Role Phone Unavailable Primary Care Provider Unavailabl e Encounter Details Date Type Department Care Team (Late st Contact Info) Description 11/27/2018 Transcribed Document [facility] [place] Family Medicine [address] [place] [address] ProviderErika MD [address] [place], [place] [id number] Social History Tobacco Use Types Packs/Day Years [...] 1940 Associated Diagnoses: CAD (coronary artery disease), [place] coronary artery; Thrombocytopenia; Coronary artery disease; HTN [...] swelling - improved today. Integumentary: Warm, Dry, [place], incision is C/D/I. Neurologic: Alert, Oriented, left [...] (Current Encounter/Past 24 Hours) PT 14.8 Second(s) AL 11/27/2018 07:36 PTT 55.8 Second(s) AL 11/26/2018 11:12 INR 1.4 AL 11/27/2018 07:36 . Impression and Plan Plan: [...] time of discharge- has sent information to [facility] -Transfer to [facility] 11/24/18 -POD#8 -Awaiting transfer to [facility] -Awaiting response from [facility] 11/25/18 -left upper extremity venous doppler - doppler this am positive for LUE DVT - will start coumadin and heparin bridge -awaiting [facility] 11/26/18 -Heparin drip and coumadin for LUE DVT Left arm swelling improved today INR 1.1 today, INR goal 2-3 Possibly transfer to [facility] this weekend 11/27/18: Left arm swelling continues to improve Continues on Coumadin and heparin bridge INR: 1.4 (1.1 yesterday) goal: 2 to 3 [facility] soon,? Tomorrow EF 55-60% per echo 11/16/18 DVT Prophylaxis: SCDs Diagnosis CAD (coronary artery disease), [place] coronary artery - Admitting, Medical. Thrombocytopenia - [...]
--- OUTSIDE RECORDS SUMMARY | 2025-06-10 13:29 | XMS_ITS | Encounter Summary ---
Author Organization [employer] ([place], [place], [place], [place]) Address [address] [place] [address] Care Team Providers Care Supervisor Uranium Processing Name Role Phone Unavailable Primary Care Provider Unavailabl e Encounter Details Date Type Department Care Team (Late st Contact Info) Description 11/26/2018 Transcribed Document [facility] [place] Family Medicine [address] [place] [address] ProviderErika MD [address] [place], [place] [id number] Social History Tobacco Use Types Packs/Day Years [...] 1940 Associated Diagnoses: CAD (coronary artery disease), [place] coronary artery; Thrombocytopenia; Coronary artery disease; [...] swelling - improved today. Integumentary: Warm, Dry, [place], incision is C/D/I. Neurologic: Alert, left sided [...] of discharge- CM has sent information to [facility] -Transfer to [facility] 11/24/18 -POD#8 -Awaiting transfer to [facility] -Awaiting response from [facility] 11/25/18 -left upper extremity venous doppler - doppler this am positive for LUE DVT - will start coumadin and heparin bridge -awaiting [facility] 11/26/18 -Heparin drip and coumadin for LUE DVT Left arm swelling improved today INR 1.1 today, INR goal 2-3 Possibly transfer to [facility] this weekend EF 55-60% per echo 11/16/18 DVT Prophylaxis: SCDs Diagnosis CAD (coronary artery disease), [place] coronary artery - Admitting, Medical. Thrombocytopenia [...]
--- OUTSIDE RECORDS SUMMARY | 2025-06-10 13:29 | XMS_ITS | Encounter Summary ---
Author Organization [employer] ([place], [place], [place], [place]) Address [address] [place] [address] Care Team Providers Care Cement Mason Highways And Streets Name Role Phone Unavailable Primary Care Provider Unavailabl e Encounter Details Date Type Department Care Team (Late st Contact Info) Description 11/27/2018 Transcribed Document [facility] [place] [address] [place] [address] ProviderErika MD [address] [place] [address] Social History Tobacco Use Types [...]
--- OUTSIDE RECORDS SUMMARY | 2025-06-10 13:29 | XMS_ITS | Encounter Summary ---
Author Organization [employer] ([place], [place], [place], [place]) Address [address] [place] [address] Care Team Providers Care User Experience Architect Name Role Phone Unavailable Primary Care Provider Unavailabl e Encounter Details Date Type Department Care Team (Late st Contact Info) Description 11/05/2018 Transcribed Document [facility] [place] [address] [place] [address] ProviderErika MD [address] [place] [address] Social History Tobacco Use Types [...]
--- OUTSIDE RECORDS SUMMARY | 2025-06-10 13:29 | XMS_ITS | Encounter Summary ---
Author Organization [employer] ([place], [place], [place], [place]) Address [address] [place] [address] Care Team Providers Care Ammonia Refrigeration Worker Name Role Phone Unavailable Primary Care Provider Unavailabl e Encounter Details Date Type Department Care Team (Late st Contact Info) Description 11/19/2018 Transcribed Document [facility] [place] [address] [place] [address] ProviderErika MD [address] [place] [address] Social History Tobacco Use Types [...] TF regimen to add fiber. EST NEEDS: [id number] kcal (25-30kcal/kg), 95g pro (1.2g/kg) 1. Change TF to Jevity 1.5 @ 60 ml/hr + 1 bottle [id number] daily (Provides 2040 kcal; 99 gm pro) Goal: meet est needs 2. Monitor alertness and appropriateness for CASING OPERATOR eval Goal: est safe po diet 3. Weigh pt 2x weekly Goal: no sig weight changes High Risk [address], LD - 11/19/2018 12:43 EDT Electronically signed by Parveen, [facility] Conversion Air Intercept Controller Cerner at 12/08/2022 12:18 PM CDT documented in this encounter Plan of Treatment Not on file documented as of this encounter Visit Diagnoses Not on filedocumented in this encounter
--- OUTSIDE RECORDS SUMMARY | 2025-06-10 13:29 | XMS_ITS | Encounter Summary ---
Author Organization [employer] ([place], [place], [place], [place]) Address [address] [place] [address] Care Team Providers Care Overedge Sewer Name Role Phone Unavailable Primary Care Provider Unavailabl e Encounter Details Date Type Department Care Team (Late st Contact Info) Description 11/27/2018 Transcribed Document [facility] [place] Family Medicine [address] [place] [address] ProviderErika MD [address] [place], [place] [id number] Social History Tobacco Use Types Packs/Day Years Used Date Smoking Tobacco: Never Assessed Sex and Gender Information Value Date Recorded Sex Assigned at Not on file Legal Sex Male 5:03 PM CDT Gender Identity Not on file Sexual Orientation Not on file documented as of this encounter Miscellaneous Notes * Cerner Conversion Note - Historical ProviderMD - 11/27/2018 2:00 AM CDT Bilingual Secretary Details Entered On: 11/27/2018 3:00 EDT Performed [...]
--- OUTSIDE RECORDS SUMMARY | 2025-06-10 13:29 | XMS_ITS | Encounter Summary ---
Author Organization [employer] ([place], [place], [place], [place]) Address [address] [place] [address] Care Team Providers Care Manager Life Name Role Phone Unavailable Primary Care Provider Unavailabl e Encounter Details Date Type Department Care Team (Late st Contact Info) Description 11/27/2018 Transcribed Document [facility] [place] [address] [place] [address] ProviderErika MD [address] [place] [address] Social History Tobacco Use Types [...] EDT Electronically signed by Parveen hilario Conversion Information Resources Manager Cerner at 12/08/2022 12:32 PM CDT documented in this encounter Plan of Treatment Not on file documented as of this encounter Visit Diagnoses Not on filedocumented in this encounter
[2025-06-10 13:30] VITALS: BP 187/99; PULSE 87; RESP 16; TEMP 36.6; O2SAT 98
[2025-06-10] MEDS: ERTAPENEM SODIUM 1 GM VIAL IM (13:43)
[2025-06-10 13:50] VITALS: BP 179/91; PULSE 81; RESP 16; TEMP 36.6; O2SAT 97
== END 2025-06-10 14:01 | disposition home or self-care (01) ==
LOC: INF 13:13
PROVIDERS: PCP Internal Medicine; Visit Provider Internal Medicine
DX: Z01.89 Encounter for other specified special examinations (principal)
CPT/HCPCS: 96372; J1335

== ENCOUNTER 2025-06-12 13:15 | Outpatient (CLI) | payer MEDICARE, SELFPAY ==
[2025-06-12] MEDS: ERTAPENEM SODIUM 1 GM VIAL IM (13:30)
[2025-06-12 13:35] VITALS: BP 160/97; PULSE 76; RESP 18; TEMP 36.6; O2SAT 98
== END 2025-06-12 13:45 | disposition home or self-care (01) ==
LOC: INF 13:17
PROVIDERS: PCP Internal Medicine; Visit Provider Internal Medicine
DX: N39.0 Urinary tract infection, site not specified (principal); B96.20 Unspecified Escherichia coli [E. coli] as the cause of diseases classified elsewhere; Z16.12 Extended spectrum beta lactamase (ESBL) resistance
CPT/HCPCS: 96372; J1335

== ENCOUNTER 2025-06-13 13:36 | Outpatient (CLI) | payer MEDICARE, SELFPAY ==
[2025-06-13] MEDS: ERTAPENEM SODIUM 1 GM VIAL IM (13:55)
--- OUTSIDE RECORDS SUMMARY | 2025-06-13 13:55 | XMS_ITS | Data Portability ---
Author Organization LIZ XIMENA Leavitt [facility] Address [address] [facility] [address] [place] [address] Assessment Encounter Date Assessment Date Assessment LastModified by Organization Details LastModified Time 07/01/2023 07/01/2023 PREOPERATIVE DIAGNOSIS: Bladder calculus, 13 mm. POSTOPERATIVE DIAGNOSIS: Bladder calculus, 13 mm with BPH. PROCEDURE: Cystolitholapaxy with dilation of distal urethra. 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 SURGEON: Cong Villasenor MD ANESTHESIA: General. DRAINS: 18-Cymro urethral Michele catheter. INDICATIONS: Patient with previous [...] prepped and draped in normal fashion. A 22-Cymro cystoscopy sheath was introduced. Pendulous urethra revealed some difficulty introducing at the meatus. I then used the [place] sounds to dilate the distal urethra up to 24-Cymro. I then easily advanced down the urethra. [...] Lab urinalysis , dipstick, auto 2018 019 [facility] Extended Services With [facility], [address], [address] [place] [address], [address], 9 08:09:21 urinalysis , dipstick, auto 2018 019 [facility] Extended Services With [facility], [address], [address] [address], [address], 9 14:02:35 Referral None recorded. Procedures None recorded. Surgeries None recorded. Imaging None recorded. Medication Orders trospium ER 60 mg capsule,ex tended release 24 hr 2022 023 [facility] [address] [place], [address], 3 14:33:52 alfuzosin ER 10 mg tablet,ext ended release 24 hr 2018 019 [facility] [address] [place], [address], 9 15:32:14 Patient TargetsNo targets recorded. Patient Instructions Encounter Date Encounter Id Patient Instructions Last Modified By Organization Details Last Modified Time 05/16/2019 [id number] At this point given the patient's comorbid [...] weeks. [email or web address] Not available 05/16/2019 14:03:13 06/27/2019 [id number] continue medical therapy [email or web address] Not available 06/29/2019 08:09:20 Reason for Referral None Reported. Results Created Date Observation Date Name Description Value Unit Range Abnormal Flag Note LastModifiedBy Organization Detail LastModifiedTime 06/27/2006/27/2019 urina lysis , dipst ick, auto Unknown Analyte Yellow Not Available [facility] Extended Services With [address], [place], [address], 06/27/2019 15:52:46 06/27/2006/27/2019 urina lysis , dipst ick, auto Unknown Analyte Clear Not Available [facility] Extended Services With [place] [address] [facility] [address], [place], [address], 06/27/2019 15:52:46 06/27/20 19 06/27/2019 urina lysis , dipst ick, auto Unknown Analyte 1.010 Not Available [facility] Extended Services With [place] [address], [place], [address], 06/27/2019 15:52:46 06/27/20 19 06/27/2019 urina lysis , dipst ick, auto Unknown Analyte 1.003 - 1.035 Not Available [facility] Extended Services With [facility] [address], [place], [address], 06/27/2019 15:52:46 06/27/20 19 06/27/2019 urina lysis , dipst ick, auto Unknown Analyte 7.0 Not Available [facility] Extended Services With [place] [address] [facility] [address], [place], [address], 06/27/2019 15:52:46 06/27/20 19 06/27/2019 urina lysis , dipst ick, auto Unknown Analyte 5.0 - 8.0 Not Available [facility] [place] [facility] With [facility] [address], [place], [address], 06/27/2019 15:52:46 06/27/20 19 06/27/2019 urina lysis , dipst ick, auto Unknown Analyte Negati ve Not Available [facility] [place] [facility] With [facility] [address], [place], [address], 06/27/2019 15:52:46 06/27/20 19 06/27/2019 urina lysis , dipst ick, auto Unknown Analyte Negati ve Not Available [facility] [place] [facility] With [facility] [address], [place], [address], 06/27/2019 15:52:46 06/27/20 19 06/27/2019 urina lysis , dipst ick, auto Unknown Analyte Negati ve Not Available [facility] [place] [facility] With [facility] [address], [place], [address], 06/27/2019 15:52:46 06/27/2006/27/2019 urina lysis , dipst ick, auto Unknown Analyte Negati ve Not Available [facility] [place] [facility] With [facility] [address], [place], [address], 06/27/2019 15:52:46 06/27/20 19 06/27/2019 urina lysis , dipst ick, auto Unknown Analyte Negtiv e Not Available [facility] [place] [facility] With [facility] [address], [place], [address], 06/27/2019 15:52:46 06/27/20 19 06/27/2019 urina lysis , dipst ick, auto Unknown Analyte Negati ve - Trace Not Available [facility] [place] [facility] With [facility] [address], [place], [address], 06/27/2019 15:52:46 06/27/20 19 06/27/2019 urina lysis , dipst ick, auto Unknown Analyte Normal Not Available [facility] [place] Extended Services With [facility] [address], [place], [address], 06/27/2019 15:52:46 06/27/20 19 06/27/2019 urina lysis , dipst ick, auto Unknown Analyte Normal Not Available [facility] [place] Extended Services With [facility] [address], [place], [address], 06/27/2019 15:52:46 06/27/20 19 06/27/2019 urina lysis , dipst ick, auto Unknown Analyte Negati ve Not Available [facility] [place] [facility] With [facility] [address], [place], [address], 06/27/2019 15:52:46 06/27/20 19 06/27/2019 urina lysis , dipst ick, auto Unknown Analyte Negati ve Not Available [facility] [place] [facility] With [facility] [address], [place], [address], 06/27/2019 15:52:46 06/27/20 19 06/27/2019 urina lysis , dipst ick, auto Unknown Analyte Normal Not Available [facility] [place] [facility] With [facility] [address], [place], [address], 06/27/2019 15:52:46 06/27/20 19 06/27/2019 urina lysis , dipst ick, auto Unknown Analyte Normal - 1mg/dl Not Available [facility] [place] [facility] With [facility] [address], [place], [address], 06/27/2019 15:52:46 06/27/2006/27/2019 urina lysis , dipst ick, auto Unknown Analyte Negati ve Not Available [facility] [place] [facility] With [facility] [address], [place], [address], 06/27/2019 15:52:46 06/27/2006/27/2019 urina lysis , dipst ick, auto Unknown Analyte Negati ve Not Available [facility] [place] [facility] With [facility] [address], [place], [address], 06/27/2019 15:52:46 06/27/20 19 06/27/2019 urina lysis , dipst ick, auto Unknown Analyte Negati ve Not Available [facility] [place] [facility] With [facility] [address], [place], [address], 06/27/2019 15:52:46 06/27/2006/27/2019 urina lysis , dipst ick, auto Unknown Analyte Negati ve Not Available [facility] [place] [facility] With [facility] [address], [place], [address], 06/27/2019 15:52:46 06/27/20 19 06/27/2019 urina lysis , dipst ick, auto Unknown Analyte Clean Catch Not Available [facility] [place] [facility] With [facility] [address] [facility] [address], [place], [address], 06/27/2019 15:52:46 06/27/20 19 06/27/2019 urina lysis , dipst ick, auto Unknown Analyte Automa jamshid Not Available [facility] [place] [facility] With [facility] [address] [facility] [address], [place], [address], 06/27/2019 15:52:46 05/16/20 19 05/16/2019 urina lysis , dipst ick, auto Unknown Analyte Yellow Not Available [facility] [place] [facility] With [facility] [address] [facility] [address], [place], [address], 05/16/2019 13:23:16 05/16/20 19 05/16/2019 urina lysis , dipst ick, auto Unknown Analyte Clear Not Available [facility] [place] [facility] With [facility] [address] [facility] [address], [place], [address], 05/16/2019 13:23:16 05/16/20 19 05/16/2019 urina lysis , dipst ick, auto Unknown Analyte 1.020 Not Available [facility] Extended Services With [facility] [address] [facility] [address], [place], [address], 05/16/2019 13:23:16 05/16/2005/16/2019 urina lysis , dipst ick, auto Unknown Analyte 1.003 - 1.035 Not Available [facility] [place] [facility] With [facility] [address] [facility] [address], [place], [address], 05/16/2019 13:23:16 05/16/20 19 05/16/2019 urina lysis , dipst ick, auto Unknown Analyte 5.0 Not Available [facility] [place] [facility] With [facility] [address] [facility] [address], [place], [address], 05/16/2019 13:23:16 05/16/20 19 05/16/2019 urina lysis , dipst ick, auto Unknown Analyte 5.0 - 8.0 Not Available [facility] [place] [facility] With [facility] [address], [place], [address], 05/16/2019 13:23:16 05/16/20 19 05/16/2019 urina lysis , dipst ick, auto Unknown Analyte Negati ve Not Available [facility] [place] [facility] With [facility] [address], [place], [address], 05/16/2019 13:23:16 05/16/20 19 05/16/2019 urina lysis , dipst ick, auto Unknown Analyte Negati ve Not Available [facility] [place] [facility] With [facility] [address], [place], [address], 05/16/2019 13:23:16 05/16/20 19 05/16/2019 urina lysis , dipst ick, auto Unknown Analyte Negati ve Not Available [facility] [place] [facility] With [facility] [address], [place], [address], 05/16/2019 13:23:16 05/16/20 19 05/16/2019 urina lysis , dipst ick, auto Unknown Analyte Negati ve Not Available [facility] [place] [facility] With [facility] [address], [place], [address], 05/16/2019 13:23:16 05/16/20 19 05/16/2019 urina lysis , dipst ick, auto Unknown Analyte Negtiv e Not Available [facility] [place] [facility] With [facility] [address], [place], [address], 05/16/2019 13:23:16 05/16/20 19 05/16/2019 urina lysis , dipst ick, auto Unknown Analyte Negati ve - Trace Not Available [facility] [place] [facility] With [facility] [address], [place], [address], 05/16/2019 13:23:16 05/16/20 19 05/16/2019 urina lysis , dipst ick, auto Unknown Analyte Normal Not Available [facility] Extended Services With [facility] [address], [place], [address], 05/16/2019 13:23:16 05/16/20 19 05/16/2019 urina lysis , dipst ick, auto Unknown Analyte Normal Not Available [facility] Extended Services With [facility] [address], [place], [address], 05/16/2019 13:23:16 05/16/20 19 05/16/2019 urina lysis , dipst ick, auto Unknown Analyte 15 mg/dl (Sm) Not Available [facility] Extended Services With [facility] [address], [place], [address], 05/16/2019 13:23:16 05/16/20 19 05/16/2019 urina lysis , dipst ick, auto Unknown Analyte Negati ve Not Available [facility] Extended Services With [facility] [address], [place], [address], 05/16/2019 13:23:16 05/16/20 19 05/16/2019 urina lysis , dipst ick, auto Unknown Analyte Normal Not Available [facility] Extended Services With [facility] [address], [place], [address], 05/16/2019 13:23:16 05/16/20 19 05/16/2019 urina lysis , dipst ick, auto Unknown Analyte Normal - 1mg/dl Not Available [facility] [place] Extended Services With [facility] [address], [place], [address], 05/16/2019 13:23:16 05/16/20 19 05/16/2019 urina lysis , dipst ick, auto Unknown Analyte Negati ve Not Available [facility] [place] Extended Services With [facility] [address], [place], [address], 05/16/2019 13:23:16 05/16/20 19 05/16/2019 urina lysis , dipst ick, auto Unknown Analyte Negati ve Not Available [facility] [place] [facility] Services With [facility] [address], [place], [address], 05/16/2019 13:23:16 05/16/20 19 05/16/2019 urina lysis , dipst ick, auto Unknown Analyte Negati ve Not Available [facility] [place] [facility] With [facility] [address], [place], [address], 05/16/2019 13:23:16 05/16/20 19 05/16/2019 urina lysis , dipst ick, auto Unknown Analyte Negati ve Not Available [facility] [place] [facility] With [facility] [address], [place], [address], 05/16/2019 13:23:16 05/16/20 19 05/16/2019 urina lysis , dipst ick, auto Unknown Analyte Clean Catch Not Available [facility] [place] [facility] With [facility] [address], [place], [address], 05/16/2019 13:23:16 05/16/20 19 05/16/2019 urina lysis , dipst ick, auto Unknown Analyte Automa jamshid Not Available [facility] [place] [facility] With [facility] [address], [place], [address], 05/16/2019 13:23:16 07/01/20 23 07/07/2023 STONE GERMAINE SIS composition SEE BELOW normal Calci um Oxala te Dihyd rate (Wedd ellit e) 15% Calci um Oxala te Monoh ydrat e (Whew ellit e) 70% Carbo stephany Apati te (Dahl lite) 15% See Note 1 Not Available [facility] [address] [place] [address], [address], 07/07/2023 18:14:54 07/01/2007/07/2023 STONE GERMAINE SIS weight [...] for clini long purpo ses. Not Available [facility] [address] [place], [address], 07/07/2023 18:14:54 Result Notes None recorded. Problems Name Problem SNOMED Code Status Onset Date Resolution Date Notes Provider Name and Address Organization Details Recorded Time Lower urinary tract symptoms due to benign prostatic hypertrophy 9975717779475 1 Active 2018 LEYLA SHAH JR, MD [address] [place] [address], [address] , [facility] 9 11:50:21 Increased frequency of urination 230915074 Active 2018 LEYLA SHHA JR, MD [address] [place] [address], [address], [facility] 9 20:29:31 Nocturia 453801116 Active 2018 LEYLA SHAH JR, MD [address] [place] [address], [address], [facility] 9 20:29:35 Problem Notes None recorded. Procedures Surgical History Date Name Laterality Status Provider Name and Address Organization Details Recorded Time 03/02/20 19 Post Void Residual; Ultrasound completed Rima Ivory [facility] 03/02/2019 11:46:22 04/16/20 17 MEATOTOMY, EXCEPT IN (SURG) completed CONG VILLASENOR MD [address] [place] [address], [address], [facility] 04/29/2017 10:19:09 Heart Surgery completed Deseriee [place] [facility] 03/02/2019 11:35:52 cholecystectomy completed [facility] 05/19/2023 16:19:30 Hernia Repair completed [facility] 05/19/2023 16:19:41 Prostate Surgery completed [facility] 05/19/2023 16:19:58 Urinary Bladder completed [facility] 05/19/2023 16:20:09 Imaging Results None recorded. Procedure [...] 2022 active son requests Rx changed to [facility] as pt will not be returning [...] Updated DateTime 05/16/2019 185.42 cm 21.1 kg/m2 88036.78 g [facility] 05/16/2019 13:22:42 Date Recorded Body height Systolic And Diastolic Provider Name and Address Organization Details Last Updated DateTime 06/27/2019 185.42 cm 143/77 mm[Hg] [facility] 06/27/2019 15:52:00 Date Recorded Body height Body mass index (BMI) Body weight Provider Name and Address Organization Details Last Updated DateTime 07/08/2023 182.88 cm 29.8 kg/m2 51001.32 g John Emanuel [facility] 07/08/2023 13:21:37 Social History Question Answer Notes LastModified by Organizat ion Details LastModified Time Tobacco Smoking Status [facility]oker [facility] 03/02/2019 11:35:35 Marital Status Informatio n not available 03/02/2019 What Was The Date Of Your Most Recent Tobacco Screening? 03/02/2019 Information not available 10/11/2019 What Is Your Relationship Status? [email or web address] Information not available 05/19/2023 Has Tobacco Cessation Counseling Been Provided? No [email or web address] Information not available 05/19/2023 Sex: Unknown Functional Status Question Answer Note LastModified by Organizat ion Details LastModified Time Do you use any illicit or recreational drugs? No [email or web address] Information not available 05/19/2023 Do you or have you ever used any other forms of tobacco or nicotine? No [email or web address] Information not available 05/19/2023 What is your level of alcohol consumption? 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 Family History Relationship Description Onset Age of this Age Resolved Age Notes LastModified by Organization Details LastModified Time Unspecified Relation Family history of malignant neoplasm colon cancer Not available 05/19/2023 16:18:41 Unspecified Relation Kidney stone paulina Not available 05/2019 11:35:27 Medical History Condition Response Other Y Arthritis Y Cancer Y Stroke Y Kidney Disease Y Urinary Tract Infection Y Cardiac Disease Y High Cholesterol Y High PSA Y Heart Attack ([place]) Y Hypertension Y Past Encounters Encounter ID Performer Location Encounter Start Date Encounter Closed Date Diagnosis/Indication Diagnosis SNOMED-CT Code Diagnosis ICD10 Code Diagnosis IMO Codes Diagnosis Note [id number] LEYLA SHAH JR, MD [address] [place] [address] 03/02/2019 11:00:32 03/07/2019 10:05:38 Lower urinary tract symptoms due to benign prostatic hypertrophy 2659104169 9101 N40.1 Increased frequency of urination 578527329 R35.0 Nocturia 678839279 R35.1 [id number] LEYLA SHAH JR, MD [facility] [address] [facility] [address] [place] [address] 05/16/2019 13:05:53 05/18/2019 08:09:55 Lower urinary tract symptoms due to benign prostatic hypertrophy 7068108210 9101 N40.1 [id number] LEYLA SHAH JR, MD [facility] [address] [facility] [address] [place] [address] 06/27/2019 14:58:19 06/30/2019 11:19:02 Lower urinary tract symptoms due to benign prostatic hypertrophy 0431201854 9101 N40.1 Nocturia 831728164 R35.1 [id number] MD JONES FONTANEZ [facility] [address] [place] [address] 05/19/2023 14:49:48 05/19/2023 16:47:49 Urinary bladder stone 85621592 N21.0 follow upp 2 months , earlier if necessary [id number] CONG VILLASENOR MD SURGERY SCHEDULE [address] [place] [address] 07/01/2023 10:05:11 07/01/2023 10:05:30 [id number] MD JONES FONTANEZ [facility] [address] [place] [address] 07/08/2023 13:06:58 07/08/2023 14:09:02 Urinary bladder stone 70601387 N21.0 follow upp 2 months , earlier if necessary, he will complete his antibiotic s Increased frequency of urination 340825280 R35.0 as above Health Concerns Section Related Observation LastModified by Organization Detai ls LastModified Time None Recorded Concern Status LastModified by Organization Details LastModified Time None Recorded Advance Directives Directive None Recorded Payers Insurance Date Sequence Insurance Name Policy Number Policy Mullen Covered Member ID Mullen Member ID Guarantor Name 05/19/2023 1 [place] Jorge Villasenor [id number] Jorge Pickering Fernando 09/06/2023 1 [employer] (MEDICARE REPLACEMENT/A DVANTAGE - PPO) Jorge Pickering Fernando [id number] Jorge Pickering Fernando Notes Date Note Type [...] of 9.3. LEYLA SHAH JR, MD [address] [place], [address], [facility] 05/16/2019 14:03:31 06/27/2019 text/html Patient is in [...] is somewhat improved. LEYLA SHAH JR, MD [address] [place] [address], [address], [facility] 06/29/2019 08:09:36 05/19/2023 text/html pt with h/o [...] it. HE had a Resume treatment in [place] about 3 [address] ago[address] I reviewed ct scan disc for [facility] CONG VILLASENOR MD [address] [place] [address] [place], [address], [facility] 05/21/2023 11:32:44 07/08/2023 text/html Patient is here [...] had recent cystoscopy. CONG VILLASENOR MD [address] [place], [address], [facility] 07/08/2023 14:34:03
[2025-06-13 14:00] VITALS: BP 172/98; PULSE 87; RESP 18; TEMP 36.6; O2SAT 98
== END 2025-06-13 23:59 | disposition home or self-care (01) ==
LOC: INF 13:37
PROVIDERS: PCP Internal Medicine; Visit Provider Internal Medicine
DX: N39.0 Urinary tract infection, site not specified (principal); B96.20 Unspecified Escherichia coli [E. coli] as the cause of diseases classified elsewhere; Z16.12 Extended spectrum beta lactamase (ESBL) resistance
CPT/HCPCS: 96372; J1335

== ENCOUNTER 2025-06-14 12:47 | Outpatient (CLI) | payer MEDICARE, SELFPAY ==
[2025-06-14 13:02] VITALS: BP 179/98; PULSE 82; RESP 20; TEMP 36.6; O2SAT 98
[2025-06-14] MEDS: ERTAPENEM SODIUM 1 GM VIAL IM (13:02)
--- OUTSIDE RECORDS SUMMARY | 2025-06-14 13:20 | XMS_ITS | Encounter Summary ---
Author Organization [employer] ([place], [place], [place], [place]) Address [address] [place] [address] Care Team Providers Care Special Procedures Tech Name Role Phone Unavailable Primary Care Provider Unavailabl e Encounter Details Date Type Department Care Team (Late st Contact Info) Description 11/22/2018 Transcribed Document [facility] Family Medicine [address] [place] [address] ProviderErika MD [address] [place] [address] Social History Tobacco Use Types [...] Source : Measured Height Entry Format : [place] Height, Feet : 6 ft Height, Inches : 1 Inch Clinical Height : 185.42 cm Amanda Sigala RN - 11/22/2018 6:08 EDT Amanda Sigala RN - 11/22/2018 6:15 EDT Electronically signed by Christina Saini Conversion [employer] at 12/08/2022 12:34 PM CDT documented in this encounter Plan of Treatment Not on file documented as of this encounter Visit Diagnoses Not on filedocumented in this encounter
--- OUTSIDE RECORDS SUMMARY | 2025-06-14 13:20 | XMS_ITS | Encounter Summary ---
Author Organization [employer] ([place], [place], [place], [place]) Address [address] [place] [address] Care Team Providers Care Boiler Tenders Supervisor Name Role Phone Unavailable Primary Care Provider Unavailabl e Encounter Details Date Type Department Care Team (Late st Contact Info) Description 11/22/2018 Transcribed Document [facility] [place] [address] [place] [address] ProviderErika MD [address] [place] [address] Social History Tobacco Use Types [...] On: 11/22/2018 9:23 EDT by JOSSUE RODRÍGUEZ SOIL SCIENCE TEACHER General Information Visit Type, SOIL SCIENCE TEACHER : Re-Evaluation Patient Orders : SOIL SCIENCE TEACHER Fxnl Limitation Documentation x 1 -111 Start: 11/22/18 8:22:14 EDT - SYSTEM, SYSTEM FEES - Start: 11/22/18 8:21:00 EDT, Routine, For Swallow Eval and Treat -111 MARIEL ROBLES PA SOIL SCIENCE TEACHER Fxnl Limitation Documentation - Start: 11/20/18 9:37:47 EDT, Continuous Order -111 SYSTEM, SYSTEM Speech Language Pathology Additional Tx - Start: 11/20/18 9:36:00 EDT, For Dysphagia, Continuous Order -111 Admission Date : Admission Date/Time: 11/16/18 06:45:00 Medical Chart Reviewed, SOIL SCIENCE TEACHER : Yes Personal Devices : Personal Devices No Devices Recorded Assistive Devices : Assistive Devices No Devices Recorded Active Diagnoses : 11/17/2018 00:00 Atherosclerotic heart disease of [place] coronary artery without angina pectoris 11/17/2018 00:00 Essential (primary) hypertension 11/17/2018 00:00 Hypothyroidism, unspecified 11/17/2018 00:00 Nonrheumatic aortic (valve) insufficiency 11/17/2018 00:00 Restless legs syndrome 11/17/2018 00:00 Thoracic aortic aneurysm, without rupture 11/17/2018 00:00 Thrombocytopenia, unspecified 11/16/2018 00:00 Atherosclerotic heart disease of [place] coronary artery without angina pectoris 11/16/2018 00:00 Nonrheumatic aortic (valve) insufficiency 11/16/2018 00:00 Thoracic aortic aneurysm, without rupture Therapy Diagnosis, SOIL SCIENCE TEACHER : normal oral skills, moderate pharyngeal dysphagia Previous Speech/Language Evaluations : N/A Previous Swallow Precautions : Bedside 11/20 recommended instrumental prior to initiating PO diet Previous Cognitive Evaluations : N/A Diet/Intake Prior to Current Admission : Regular/thin Diet/Intake During Current Admission : NPO with TF via Corpak Gag Reflex Intact : Yes Intubation Comment, SOIL SCIENCE TEACHER : 11/16-11/17 Vital Signs RTF : Vitals [...] 9:23 EDT General Status Patient Received Status, SOIL SCIENCE TEACHER : Long sitting in bed Patient Left Status, SOIL SCIENCE TEACHER : Long sitting in bed JOSSUE RODRÍGUEZ [...] Consistencies Trialed FEES : Thin by straw, [place] by straw, Pureed, Regular solids JOSSUE RODRÍGUEZ SLP - 11/22/2018 9:23 EDT Swallow Impressions Impressions, FEES : Pharyngeal dysphagia JOSSUE RODRÍGUEZ SLP - 11/22/2018 9:23 EDT 8 Point Penetration/Aspiration Grid Thin by Straw : 8 [place] by Straw : 1 Pureed : 1 [...] : Regular Recommended Liquid Diet, SwRec : [place] Feeding Presentation Style, SwRec : No restrictions Swallow Position, SwRec : Upright 90 degrees Supervision Level w/Meals, SwRec : Assist, standby Recommended Med Present, SwRec : Crushed, Whole, With nectar, With puree/pudding, No medications with water Recommended Exam, Sw Rec : FEES Repeat Swallow Exam Timeframe : 3-6 days JOSSUE RODRÍGUEZ SLP - 11/22/2018 9:34 EDT Therapy Indication Assessment SOIL SCIENCE TEACHER Indicated : Yes SOIL SCIENCE TEACHER Problem List : Impaired, Swallowing JOSSUE RODRÍGUEZ SLP - 11/22/2018 9:34 EDT Swallow Plan/Goals Treatment Frequency, SOIL SCIENCE TEACHER : 5 times per wk Treatment Plan Est w/Pt/Caregvr, Swallow : Yes JOSSUE RODRÍGUEZ SLP - 11/22/2018 9:34 EDT Swallow LTG Grid SOIL SCIENCE TEACHER [place]way Goal #1 SOIL SCIENCE TEACHER Uniform Cap Operator Goal #2 Swallow LTG : Establish safe [...] JOSSUE RODRÍGUEZ SLP - 11/22/2018 9:34 EDT SOIL SCIENCE TEACHER Education Assessment Grid 1 Aspiration : Needs further teaching Diet Recommendation : Needs further teaching Dysphagia : Needs further teaching Free Water Protocol : Needs further teaching Ice Chips : Needs further teaching Oral Care : Needs further teaching JOSSUE RODRÍGUEZ SLP - 11/22/2018 9:34 EDT SOIL SCIENCE TEACHER Education Assessment Grid 2 Speech Language Pathology Treatment Plan : Needs further teaching JOSSUE RODRÍGUEZ SLP - 11/22/2018 9:[address] [facility] SOIL SCIENCE TEACHER Charges FEES : 1 JOSSUE RODRÍGUEZ SLP - 11/22/2018 9:34 EDT documented in this encounter Plan of Treatment Not on file documented as of this encounter Visit Diagnoses Not on filedocumented in this encounter
--- OUTSIDE RECORDS SUMMARY | 2025-06-14 13:21 | XMS_ITS | Encounter Summary ---
Author Organization [employer] ([place], [place], [place], [place]) Address [address] [place] [address] Care Team Providers Care Sales Manager Name Role Phone Unavailable Primary Care Provider Unavailabl e Encounter Details Date Type Department Care Team (Late st Contact Info) Description 11/22/2018 Transcribed Document [facility] [place] [address] [place] [address] ProviderErika MD [address] [place] [address] Social History Tobacco Use Types [...] EDT by LEONEL GUZMAN Chaplain General Information Jew Preference : Episcopal LEONEL GUZMAN Chaplain - 11/24/2018 2:35 EDT Spiritual Assessment Spiritual Assessment Comment/Summary Points : Prov. empathetic engaged listening: Pt. is Episcopal, spouse & son visit pt. regularly, Spouse & Pt. in their late teens. Pt. enjoys reminiscing and story telling, Pt. looking forward to [facility] rehab noting he wants/needs to [...]
--- OUTSIDE RECORDS SUMMARY | 2025-06-14 13:21 | XMS_ITS | Encounter Summary ---
Author Organization [employer] ([place], [place], [place], [place]) Address [address] [place] [address] Care Team Providers Care Electrician Deck Name Role Phone Unavailable Primary Care Provider Unavailabl e Encounter Details Date Type Department Care Team (Late st Contact Info) Description 11/17/2018 Transcribed Document [facility] [place] [address] [place] [address] ProviderErika MD [address] [place] [address] Social History Tobacco Use [...] Historical ProviderMD - 11/17/2018 2:00 AM CDT Report Developer Details Entered On: 11/17/2018 7:39 EDT Performed [...]
--- OUTSIDE RECORDS SUMMARY | 2025-06-14 13:21 | XMS_ITS | Encounter Summary ---
Author Organization [employer] ([place], [place], [place], [place]) Address [address] [place] [address] Care Team Providers Care Sliver Lapper Name Role Phone Unavailable Primary Care Provider Unavailabl e Encounter Details Date Type Department Care Team (Late st Contact Info) Description 11/17/2018 Transcribed Document [facility] [place] [address] [place] [address] ProviderErika MD [address] [place] [address] Social History Tobacco Use Types [...] Source : Measured Height Entry Format : [place] Height, Feet : 6 ft Height, Inches : 1 Inch Clinical Height : 185.42 cm Body Surface Area (BSA), Routine : 2.06 m2 Body Mass Index (BMI), Routine : 23.73 kg/m2 Alpesh Barraza RN - 11/17/2018 7:37 EDT Electronically signed by Christina Saini Conversion Orthotics Prosthetics Assistant Cerner at 12/08/2022 12:13 PM CDT documented in this encounter Plan of Treatment Not on file documented as of this encounter Visit Diagnoses Not on filedocumented in this encounter
--- OUTSIDE RECORDS SUMMARY | 2025-06-14 13:21 | XMS_ITS | Encounter Summary ---
Author Organization [employer] ([place], [place], [place], [place]) Address [address] [place] [address] Care Team Providers Care Enterprise Application Analyst Name Role Phone Unavailable Primary Care Provider Unavailabl e Encounter Details Date Type Department Care Team (Late st Contact Info) Description 11/17/2018 Transcribed Document [facility] Cardiology [address] [place] [address] Lc Armendariz MD [address] [facility] [address] [place] [address] Social History Tobacco Use Types [...] MD-CAR Basic Information PCP: Sanjuana Espino MD Wax Machine Operator: Porfirio Combs MD Chief Complaint s/p bioprosthetic [...] list: All Problems Aneurysm, thoracic aortic / 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 / Confirmed Aortic valve insufficiency / 166925324 / Confirmed Arthritis / 0655815 / Confirmed At risk for sleep apnea / 62261128 / Confirmed CAD (coronary artery disease) / 36023695 / Confirmed Disorder of prostate ( enlarged) / 52392471 / Confirmed HTN - Hypertension / 4602909518 / Confirmed Hypothyroidism / 35091185 / Confirmed Frequent urination / 172767743 / Confirmed Cancer of skin of face / 3731417969 / Confirmed Nocturia / 410252259 / Confirmed Restless legs syndrome / 51528464 / Confirmed Prostate stricture / 24552196 / Confirmed Resolved: Bladder stone / 512287742 Canceled: Aneurysm / 7284565315 Canceled: Thyroid disease / 806492428 Histories No education data available. Social & Psychosocial Habits Alcohol 04/16/2017 Alcohol Use History, Social Habits No Alcohol Use in Last Twelve Months No Home/Environment 11/15/2018 Lives with: Spouse Living situation: Home/Independent Substance Abuse 04/16/2017 Recreational Drug Use History No Recreational Drug Use Last 12 Months No Tobacco 04/16/2017 Smoking Status Never smoker Past Medical History: Active HTN - Hypertension (9313721111) Hypothyroidism (99701698) Family History: Entire family history is negative. [...] No tenderness, No swelling. Integumentary: Warm, Dry, [place]. Neurologic: Not alert, Not oriented. Psychiatric: not [...] 11/17/2018 05:17 Radiology Results (Last 48 hours) [id number] -- 11/16/2018 06:45 CR Chest 2 Vws [...] Anasogastric tube extends below the diaphragm. Left-sided [place]-Ganzcatheter tip is in the left main pulmonary [...] day.FINDINGS: The heart is normal in size. [place]-Jovanna catheter tips in theleft pulmonary artery. There [...]
--- OUTSIDE RECORDS SUMMARY | 2025-06-14 13:21 | XMS_ITS | Encounter Summary ---
Author Organization [employer] ([place], [place], [place], [place]) Address [address] [place] [address] Care Team Providers Care Automotive Fleet Supervisor Name Role Phone Unavailable Primary Care Provider Unavailabl e Encounter Details Date Type Department Care Team (Late st Contact Info) Description 11/22/2018 Transcribed Document [facility] [place] [address] [place] [address] ProviderErika MD [address] [place] [address] Social History Tobacco Use Types [...] On: 11/22/2018 13:55 EDT by ODALYS FAULKNER Rn-Material AttendantWinding Machine Operator Note Care Management Note : 11/22/18 Pt has had a cva. Spoke to his Connie and son Sumeet at the bedside. Pt is lfacid on the left side. Discussed the need for STR and they decided on [facility]. Sent pt info via [employer] to [facility]. CF Documentation Status Complete : Yes ODALYS FAULKNER Rn-Material Attendant - 11/22/2018 13:55 EDT Patient History Emergency Contact #1 : Connie Emergency Contact #1 (H) Emergency Contact #1 Relationship : Emergency Contact #2 : Sheridan Fernando Emergency Contact #2 (C) Emergency Contact #2 Relationship : daughter Living Situation : Home Patient Lives With : Spouse Current Home Treatments : None Patient History Note Report : ODALYS FAULKNER Rn-Material Attendant - 11/17/18 11:25:13 11/17/18 Pt sleeping and [...] when pt is awake. CF ODALYS FAULKNER Rn-Material Attendant - 11/22/2018 13:55 EDT Electronically signed by [facility], [facility] Conversion Fiber Locking Supervisor Cerner at 12/08/2022 12:32 PM CDT documented in this encounter Plan of Treatment Not on file documented as of this encounter Visit Diagnoses Not on filedocumented in this encounter
--- OUTSIDE RECORDS SUMMARY | 2025-06-14 13:22 | XMS_ITS | Encounter Summary ---
Author Organization [employer] ([place], [place], [place], [place]) Address [address] [place] [address] Care Team Providers Care Etymology Teacher Name Role Phone Unavailable Primary Care Provider Unavailabl e Encounter Details Date Type Department Care Team (Late st Contact Info) Description 11/21/2018 Transcribed Document [facility] [place] [address] [place] [address] ProviderErika MD [address] [place] [address] Social History Tobacco Use [...] Source : Measured Height Entry Format : [place] Height, Feet : 6 ft Height, Inches [...]
--- OUTSIDE RECORDS SUMMARY | 2025-06-14 13:22 | XMS_ITS | Encounter Summary ---
Author Organization [employer] ([place], [place], [place], [place]) Address [address] [place] [address] Care Team Providers Care Conveyor Line Bakery Worker Name Role Phone Unavailable Primary Care Provider Unavailabl e Encounter Details Date Type Department Care Team (Late st Contact Info) Description 11/22/2018 Transcribed Document [facility] [place] [address] [place] [address] ProviderErika MD [address] [place], [place] [id number] Social History Tobacco Use Types Packs/Day Years Used Date Smoking Tobacco: Never Assessed Sex and Gender Information Value Date Recorded Sex Assigned at Not on file Legal Sex Male 5:03 PM CDT Gender Identity Not on file Sexual Orientation Not on file documented as of this encounter Miscellaneous Notes * Cerner Conversion Note - Historical ProviderMD - 11/22/2018 2:00 AM CDT Fire Chief'S Aide Details Entered On: 11/22/2018 6:09 EDT Performed [...]
--- OUTSIDE RECORDS SUMMARY | 2025-06-14 13:22 | XMS_ITS | Encounter Summary ---
Author Organization [employer] ([place], [place], [place], [place]) Address [address] [place] [address] Care Team Providers Care Student Support Counselor Name Role Phone Unavailable Primary Care Provider Unavailabl e Encounter Details Date Type Department Care Team (Late st Contact Info) Description 11/22/2018 Transcribed Document [facility] [place] [address] [place] [address] ProviderErika MD [address] [place] [address] Social History Tobacco Use Types [...] at goal rate. Did have BM yesterday. SHIP LABORER okayed pt for po diet this am- follow up after breakfast and pt had eating 50% of meal. Pt stated he would enjoy ensure as well. Spoke with RN about observing 1-2 more meals before removing corpak and speaking with MD as well. 11/18: Check on: Pt is on Osmolite 1.5 @ 50m/hr + 1 [id number] daily advancing toward goal of 60ml/hr + 1 [id number] daily. No SHIP LABORER consult noted, discussed if any concern for [...] Support: Jevity 1.5 @ 60ml/hr + 1 [id number] daily, HT: 185cm (6'1) ADMIT WT: 79kg/174# Current Wt: 81.6kg (11/17), 82.4kg (11/18) , 84.3 kg (11/22) BMI: 23 IBW: 79kg/100% EST NEEDS: 3583-7654 kcal (25-30kcal/kg), 95g pro (1.2g/kg) DAVION GREEN [...] 11/22/2018 12:04 EDT Electronically signed by Parveen, [facility] Conversion Morning Show Producer Cerner at 12/08/2022 12:11 PM CDT documented in this encounter Plan of Treatment Not on file documented as of this encounter Visit Diagnoses Not on filedocumented in this encounter
--- OUTSIDE RECORDS SUMMARY | 2025-06-14 13:22 | XMS_ITS | Encounter Summary ---
Author Organization [employer] ([place], [place], [place], [place]) Address [address] [place] [address] Care Team Providers Care Chip Applying Machine Tender Name Role Phone Unavailable Primary Care Provider Unavailabl e Encounter Details Date Type Department Care Team (Late st Contact Info) Description 11/21/2018 Transcribed Document [facility] [place] [address] [place] [address] ProviderErika MD [address] [place], [place] [id number] Social History Tobacco Use Types Packs/Day Years [...] Bedtime, Routine HEENT saliva substitutes - 1 [place], Buccal, Liquid, Q2H, PRN for Other (See [...] Radiology results Radiology Results (Last 48 hours) [id number] -- 11/16/2018 06:45 CR Chest 1 Vw Portable (11/20/2018 04:12) Result: PORTABLE CHEST 11/20/2018 4:00 AMHISTORY: Shortness of breathCOMPARISON: 1 day priorFINDINGS: A [place]-Jovanna catheter tip terminates in the SVC. The [place]-Ganzcatheter has been retracted. The cardiac silhouette is [...]
--- OUTSIDE RECORDS SUMMARY | 2025-06-14 13:22 | XMS_ITS | Encounter Summary ---
Author Organization [employer] ([place], [place], [place], [place]) Address [address] [place] [address] Care Team Providers Care Branch Or Department Chief Librarian Name Role Phone Unavailable Primary Care Provider Unavailabl e Encounter Details Date Type Department Care Team (Late st Contact Info) Description 11/22/2018 Transcribed Document [facility] [place] [address] [place] [address] ProviderErika MD [address] [place] [address] Social History Tobacco Use Types Packs/Day Years Used Date Smoking Tobacco: Never Assessed Sex and Gender Information Value Date Recorded Sex Assigned at Not on file Legal Sex Male 5:03 PM CDT Gender Identity Not on file Sexual Orientation Not on file documented as of this encounter Miscellaneous Notes * Cerner Conversion Note - Historical ProviderMD - 11/22/2018 12:18 PM CDT REHAB TECH Attempt to Treat Entered On: 11/22/2018 12:20 EDT Performed On: 11/22/2018 12:18 EDT by JOSSUE RODRÍGUEZ SLP Attempt to Treat Inability to Treat Comment : New orders received from Neurologist. ST is currently following pt for dysphagia. Will await neuro dx for full communication JOSSUE Mccarthy, REHAB TECH - 11/22/2018 12:18 EDT documented in this encounter Plan of Treatment Not on file documented as of this encounter Visit Diagnoses Not on filedocumented in this encounter
--- OUTSIDE RECORDS SUMMARY | 2025-06-14 13:22 | XMS_ITS | Encounter Summary ---
Author Organization [employer] ([place], [place], [place], [place]) Address [address] [place] [address] Care Team Providers Care Global Director Air And Climate Change Name Role Phone Unavailable Primary Care Provider Unavailabl e Encounter Details Date Type Department Care Team (Late st Contact Info) Description 11/17/2018 Transcribed Document [facility] [place] [address] [place] [address] ProviderErika MD [address] [place] [address] Social History Tobacco Use Types [...] On: 11/17/2018 11:22 EDT by ODALYS FAULKNER Rn-Title LawyerConcrete Pump Operator Note Documentation Status Complete : Yes ODALYS FAULKNER Rn-Title Lawyer - 11/17/2018 11:22 EDT Patient History Information [...] when pt is awake. CF ODALYS FAULKNER, Rn-Title Lawyer - 11/17/2018 11:22 EDT documented in this encounter Plan of Treatment Not on file documented as of this encounter Visit Diagnoses Not on filedocumented in this encounter
--- OUTSIDE RECORDS SUMMARY | 2025-06-14 13:22 | XMS_ITS | Encounter Summary ---
Author Organization [employer] ([place], [place], [place], [place]) Address [address] [place] [address] Care Team Providers Care Locksmith Helper Name Role Phone Unavailable Primary Care Provider Unavailabl e Encounter Details Date Type Department Care Team (Late st Contact Info) Description 11/29/2018 Transcribed Document [facility] [place] [address] [place] [address] ProviderErika MD [address] [place] [address] Social History Tobacco Use Types Packs/Day Years Used Date Smoking Tobacco: Never Assessed Sex and Gender Information Value Date Recorded Sex Assigned at Not on file Legal Sex Male 5:03 PM CDT Gender Identity Not on file Sexual Orientation Not on file documented as of this encounter Miscellaneous Notes * Cerner Conversion Note - Erika ProviderMD - 11/29/2018 2:51 PM CDT [facility] Endo IntraOp Summary Primary Physician: RIGOBERTO YU MD Finalized Date/Time: 11/29/18 15:07:06 Pt. Name: DOTTIE VILLASENOR /Sex: 1940 Male Med Rec #: [id number] Physician: JULIO CESAR CARVALHO MD-[facility] Financial #: [id number] Pt. Type: I Room/Bed: [facility]/ Admit/Disch: 11/16/18 06:45:00 - Institution: [facility] Endo - Case Attendance Entry 1 Entry 2 Entry 3 Case Attendee RIGOBERTO YU MD Reynolds, Ashley N, RN JONNATHAN LUBIN Role Performed Surgeon/Proceduralist, Quality Assurance, First Scrub, First First Time In 11/29/18 [...] Patino Crna CORNEA, MIHAELA, MD Role Performed LICENSED TAX CONSULTANT/Nurse Tester Rocket Engine Anesthesiologist of Record Time In 11/29/18 14:47:00 11/29/18 14:47:00 Time Out 11/29/18 15:09:00 11/29/18 15:09:00 Procedure EGD w Control Bleeding EGD w Control Bleeding Other Attendee Superficial Wound Closed By: Last Modified By: Gem Parekh RN Reynolds, Ashley N, RN 11/29/18 15:06:55 11/29/18 15:06:55 [facility] End[facility] - Case Attendance Audit 11/29/18 15:06:55 Equipment Washer: [email or web address] Modifier: [email or web address] 1 <+> Time Out 1 <*> Procedure EGD w Control Bleeding 2 <+> Time Out 2 <*> Procedure EGD w Control Bleeding 3 <+> Time Out 3 <*> Procedure EGD w Control Bleeding 4 <+> Time Out 4 <*> Procedure EGD w Control Bleeding 5 <+> Time Out 5 <*> Procedure EGD w Control Bleeding 11/29/18 14:59:16 Equipment Washer: [email or web address] Modifier: [email or web address] <+> 1 Procedure <+> 2 Procedure <+> 3 Procedure <+> 4 Procedure <+> 5 Procedure 11/29/18 14:59:14 Equipment Washer: [email or web address] Modifier: [email or web address] 1 <-> Procedure Esophagogastroduodenoscopy 2 <-> Procedure Esophagogastroduodenoscopy 3 <-> Procedure Esophagogastroduodenoscopy 4 <-> Procedure Esophagogastroduodenoscopy 5 <-> Procedure Esophagogastroduodenoscopy 11/29/18 14:49:19 Equipment Washer: [email or web address] Modifier: [email or web address] 1 <*> Procedure Esophagogastroduodenoscopy 2 <+> Time In 2 <*> Procedure Esophagogastroduodenoscopy 3 <+> Time In 3 <*> Procedure Esophagogastroduodenoscopy 4 <+> Time In 4 <*> Procedure Esophagogastroduodenoscopy 5 <+> Time In 5 <*> Procedure Esophagogastroduodenoscopy 11/29/18 14:48:29 Equipment Washer: [email or web address] Modifier: [email or web address] 1 <+> Time In 1 <*> Procedure Esophagogastroduodenoscopy <+> 2 Case Attendee <+> 2 Role Performed <+> 2 Procedure <+> 3 Case Attendee <+> 3 Role Performed <+> 3 Procedure <+> 4 Case Attendee <+> 4 Role Performed <+> 4 Procedure <+> 5 Case Attendee <+> 5 Role Performed <+> 5 Procedure [facility] End[facility] - Case times Entry 1 Patient In Room Time 11/29/18 14:47:00 Out Room Time 11/29/18 15:09:00 Anesthesia Start Time 11/29/18 14:47:00 Stop Time 11/29/18 15:09:00 Surgery / Procedure Times Start Time 11/29/18 14:51:00 Stop Time 11/29/18 15:06:00 Last Modified By: Gem Parekh RN 11/29/18 15:06:53 [facility] End[facility] - Case times Audit 11/29/18 15:06:53 Equipment Washer: [email or web address] Modifier: [email or web address] <+> 1 Out Room Time <+> 1 Stop Time <+> 1 Stop Time 11/29/18 14:51:51 Equipment Washer: [email or web address] Modifier: [email or web address] <+> 1 Start Time [facility] Endo - Delays Entry 1 Delay Reason Other Duration 0 Minute(s) Last Modified By: Gem Parekh RN 11/29/18 14:48:33 [facility] Endo - Departure from OR Entry 1 Integumentary Assessment Integumentary WDL Assessment WDL Transfer/Handoff Transfer to PACU Phase I Handoff Method Bedside/Face to face Post-op Transport Stretcher/Gurney Via Patient Transport Gem Parekh RN, Accompanied by Cassie Patino Crna Last Modified By: Gem Parekh RN 11/29/18 14:48:36 [facility] Endo - Endoscopy Details Entry 1 Abdomen Procedure Soft, Non-Tender Assessment Procedure Abdomen 11/29/18 14:47:00 Assessment D/T Radio Frequency Ablation Last Modified By: Gem Parekh RN 11/29/18 14:48:41 [facility] Endo - Fire Risk Assessment Entry 1 [...] Modified By: Gem Parekh RN 11/29/18 14:48:48 [facility] Endo - General Case Dehairing Machine Tender 1 Case Information OR Endo 01 [facility] Case Level 1 Room Verified Yes Wound Class II - Clean-Contaminated Specialty SN Gastroenterology Anesthesia Type MAC ASA Class 4 Diagnosis Preop Diagnosis GI Bleed Postop Same As Preop Yes Postop Diagnosis GI Bleed Last Modified By: Gem Parekh RN 11/29/18 14:48:58 [facility] Endo - Implant Log Entry 1 Entry 2 Type Implant (Synthetic) Implant (Synthetic) Implant Log Implant Type Tissue Implant Type Implant CLIP II RESOLUTION CLIP II RESOLUTION Identification [id number] Description Implant Quantity 1 1 Implant Site Implant Identification Model Number Implant Identification Serial Number Implant [id number] Identification Lot Number Implant Orlando Sci:Interv Orlando Sci:Interv Identification Cardiology Cardiology Slubber Tender Name: Implant [id number] Identification Catalog Number Implant Size Implant Has an Yes Yes Expiration Date Implant Expiration 09/05/21 07/10/21 Date Wasted Radioactive Material Time Implanted Tissue Implant Continue for Tissue Implant Documentation Tissue Identification Number Graft Prep Per Slubber Tender Instructions: Tissue Preparation Method: Reconstitution Solution: Reconstitution Solution Lot Number Reconstitution Solution Expiration Date: Thawing Solution Thawing Solution Lot Number Thawing Solution Expiration Date Preparation Materials, Other Preparation Materials, Other Lot Number Preparation Materials, Other Expiration Date Tissue Prepared/Processed By Slubber Tender Paperwork Completed Implant Type Comment clip failed Last Modified By: Gem Parekh RN Reynolds, Ashley N, RN 11/29/18 15:00:27 11/29/18 15:06:45 [facility] Endo - Implant Log Audit 11/29/18 15:06:45 Equipment Washer: [email or web address] Modifier: [email or web address] 2 <*> Implant Identification Description CLIP II RESOLUTION [id number] 2 <+> Implant Type Comment 11/29/18 15:04:27 Equipment Washer: [email or web address] Modifier: [email or web address] <+> 2 Implant Identification Description <+> 2 Implant Identification Lot Number <+> 2 Implant Identification Slubber Tender Name: <+> 2 Implant Expiration Date <+> 2 Implant Quantity <+> 2 Implant Identification Catalog Number <+> 2 Implant Has an Expiration Date <+> 2 Type [facility] Endo - Intraoperative Assessment Entry 1 Valid History / Yes Physical in Chart Preoperative Yes Checklist Reviewed/Evaluated Patient is Latex No Sensitive Level of WDL Consciousness (WDL = Alert, Oriented to Person, Place, and Time) Last Modified By: Gem Parekh RN 11/29/18 14:49:01 [facility] Endo - Intraoperative Equipment Entry 1 Entry [...] Ashley N, RN 11/29/18 14:49:07 11/29/18 14:56:48 [facility] Endo - Intraoperative Equipment Audit 11/29/18 14:56:48 Equipment Washer: [email or web address] Modifier: [email or web address] <+> 2 Photo <+> 2 Video <+> 2 Electrocardiogram (ECG) Electrode Placement <+> 2 Blood Pressure Location <+> 2 Pulse Oximeter Probe Site <+> 2 Flexible Endoscopes Used <+> 2 Scope Serial Number/Identification Number <+> 2 Type [facility] Endo - Patient Positioning Entry 1 Procedure [...] Modified By: Gem Parekh RN 11/29/18 14:59:16 [facility] Endo - Patient Positioning Audit 11/29/18 14:59:16 Equipment Washer: [email or web address] Modifier: [email or web address] <+> 1 Procedure 11/29/18 14:59:14 Equipment Washer: [email or web address] Modifier: [email or web address] 1 <-> Procedure Esophagogastroduodenoscopy [facility] Endo - Sign In Entry 1 Patient, Site, Yes Procedure Identified Surgical Consent Yes Confirmed Surgical Site N/A Marked by person performing procedure Airway Hypothermia Risk No Warming Measures No Taken Last Modified By: Gem Parekh RN 11/29/18 14:49:18 [facility] Endo - Sign Out Entry 1 RN [...] Modified By: Gem Parekh RN 11/29/18 15:07:01 [facility] Endo - Surgical Procedures Entry 1 Procedure EGD w Control Bleeding Primary Procedure Yes Primary Surgeon RIGOBERTO YU MD Start 11/29/18 14:51:00 Stop 11/29/18 15:06:00 Anesthesia Type MAC Specialty SN Gastroenterology Wound Class II - Clean-Contaminated Last Modified By: Gem Parekh RN 11/29/18 15:07:04 [facility] Endo - Surgical Procedures Audit 11/29/18 15:07:04 Equipment Washer: [email or web address] Modifier: [email or web address] <+> 1 Stop 11/29/18 14:59:15 Equipment Washer: [email or web address] Modifier: [email or web address] 1 <*> Procedure Esophagogastroduodenoscopy 1 <+> Start 11/29/18 14:49:23 Equipment Washer: [email or web address] Modifier: [email or web address] 1 <*> Procedure Esophagogastroduodenoscopy 1 <+> Specialty [facility] Endo - Time Out Entry 1 Procedure [...] Modified By: Gem Parekh RN 11/29/18 14:59:17 [facility] Endo - Time Out Audit 11/29/18 14:59:17 Equipment Washer: [email or web address] Modifier: [email or web address] <+> 1 Procedure to be Performed 11/29/18 14:59:15 Equipment Washer: [email or web address] Modifier: [email or web address] 1 <-> Procedure to be Performed Esophagogastroduodenoscopy Case Comments <None> Finalized By: Gem Parekh RN Document Signatures Signed By: Gem Parekh RN 11/29/18 15:07 Electronically signed by Parveen [facility] Conversion Licensed Practical Vocational Nurse Cerner at 12/08/2022 12:33 PM CDT documented in this encounter Plan of Treatment Not on file documented as of this encounter Visit Diagnoses Not on filedocumented in this encounter
--- OUTSIDE RECORDS SUMMARY | 2025-06-14 13:22 | XMS_ITS | Encounter Summary ---
Author Organization [employer] ([place], [place], [place], [place]) Address [address] [place] [address] Care Team Providers Care Catering And Events Manager Name Role Phone Unavailable Primary Care Provider Unavailabl e Encounter Details Date Type Department Care Team (Late st Contact Info) Description 11/22/2018 Transcribed Document [facility] [place] [address] [place] [address] ProviderErika MD [address] [place] [address] Social History Tobacco Use Types [...] D Community Services : Outpt Cardiac Rehab [facility] [phone] F [phone] They will call pt w/ appt time. SUZANNA HAINES, Police Liaison - 11/30/2018 15:30 EDT Driving After Discharge : Do not drive, Other: No driving or operating heavy machinery until released by a physician. JAY JAY CRESPO MD-NEU - 11/22/2018 11:16 EDT documented in this encounter Plan of Treatment Not on file documented as of this encounter Visit Diagnoses Not on filedocumented in this encounter
--- OUTSIDE RECORDS SUMMARY | 2025-06-14 13:22 | XMS_ITS | Encounter Summary ---
Author Organization [employer] ([place], [place], [place], [place]) Address [address] [place] [address] Care Team Providers Care Script Coordinator Name Role Phone Unavailable Primary Care Provider Unavailjuliana e Encounter Details Date Type Department Care Team (Late st Contact Info) Description 11/29/2018 Transcribed Document [facility] [place] [address] [place] [address] ProviderErika MD [address] [place] [address] Social History Tobacco Use Types [...] unspecified 11/17/2018 00:00 Atherosclerotic heart disease of [place] coronary artery without angina pectoris 11/17/2018 00:00 Essential (primary) hypertension 11/17/2018 00:00 Hypothyroidism, unspecified 11/17/2018 00:00 Nonrheumatic aortic (valve) insufficiency 11/17/2018 00:00 Restless legs syndrome 11/17/2018 00:00 Thoracic aortic aneurysm, without rupture 11/17/2018 00:00 Thrombocytopenia, unspecified 11/16/2018 00:00 Atherosclerotic heart disease of [place] coronary artery without angina pectoris 11/16/2018 00:00 Nonrheumatic aortic (valve) insufficiency 11/16/2018 00:00 Thoracic aortic aneurysm, without rupture Admission Date : 11/16/2018 06:45 Co-treated by, OT : office administrative assistant (EMPLOYMENT LEGAL ASSISTANT) Personal Devices : Personal Devices No Devices [...] DAKOTA VELAZQUEZ OTR/L - 11/29/2018 13:08 EDT Senior Living Goals, OT Self Feeding LTG Grid Goal [...]
--- OUTSIDE RECORDS SUMMARY | 2025-06-14 13:22 | XMS_ITS | Encounter Summary ---
Author Organization [employer] ([place], [place], [place], [place]) Address [address] [place] [address] Care Team Providers Care Makeup Sales Advisor Name Role Phone Unavailable Primary Care Provider Unavailabl e Encounter Details Date Type Department Care Team (Late st Contact Info) Description 11/29/2018 Transcribed Document [facility] [place] [facility] [place] [address] ProviderErika MD [address], [place] [id number] Social History Tobacco Use Types Packs/Day Years [...]
--- OUTSIDE RECORDS SUMMARY | 2025-06-14 13:22 | XMS_ITS | Encounter Summary ---
Author Organization [employer] ([place], [place], [place], [place]) Address [address] [place] [address] Care Team Providers Care Geodetic Computator Name Role Phone Unavailable Primary Care Provider Unavailabl e Encounter Details Date Type Department Care Team (Late st Contact Info) Description 11/21/2018 Transcribed Document [facility] [place] [address] [place] [address] ProviderErika MD [address] [place] [address] Social History Tobacco Use Types Packs/Day Years Used Date Smoking Tobacco: Never Assessed Sex and Gender Information Value Date Recorded Sex Assigned at Not on file Legal Sex Male 5:03 PM CDT Gender Identity Not on file Sexual Orientation Not on file documented as of this encounter Miscellaneous Notes * Cerner Conversion Note - Historical ProviderMD - 11/21/2018 2:00 AM CDT Hotel Breakfast Attendant Details Entered On: 11/21/2018 1:40 EDT Performed [...]
--- OUTSIDE RECORDS SUMMARY | 2025-06-14 13:22 | XMS_ITS | Encounter Summary ---
Author Organization [employer] ([place], [place], [place], [place]) Address [address] [place] [address] Care Team Providers Care Parachute Repairer Name Role Phone Unavailable Primary Care Provider Unavailabl e Encounter Details Date Type Department Care Team (Late st Contact Info) Description 11/29/2018 Transcribed Document [facility] [place] [address] [place] [address] ProviderErika MD [address] [place] [address] Social History Tobacco Use Types Packs/Day Years Used Date Smoking Tobacco: Never Assessed Sex and Gender Information Value Date Recorded Sex Assigned at Not on file Legal Sex Male 5:03 PM CDT Gender Identity Not on file Sexual Orientation Not on file documented as of this encounter Miscellaneous Notes * Cerner Conversion Note - Historical ProviderMD - 11/29/2018 11:15 AM CDT BUNDLE SORTER Attempt to Treat Entered On: 11/29/2018 11:15 EDT Performed On: 11/29/2018 11:15 EDT by JOSSUE RODRÍGUEZ SLP Attempt to Treat Unable to Treat Due To : Patient Unavailable Inability to Treat Comment : Pt in the process of transferring to . RN reports pt is to have procedure this afternoon. ST will check back as schedule allows Notification : TONJA Sanchez, OJSSUE TELLEZ, ERIC - 11/29/2018 11:15 EDT documented in this encounter Plan of Treatment Not on file documented as of this encounter Visit Diagnoses Not on filedocumented in this encounter
--- OUTSIDE RECORDS SUMMARY | 2025-06-14 13:22 | XMS_ITS | Encounter Summary ---
Author Organization [employer] ([place], [place], [place], [place]) Address [address] [place] [address] Care Team Providers Care Hose Turner Name Role Phone Unavailable Primary Care Provider Unavailabl e Encounter Details Date Type Department Care Team (Late st Contact Info) Description 11/22/2018 Transcribed Document [facility] Family Medicine [address] [place] [address] ProviderErika MD [address] [id number] Social History Tobacco Use Types Packs/Day Years [...] of Systems Respiratory - wearing 02 by ID GI - has NG tube. Objective Vitals [...] Tab, Oral, At Bedtime saliva substitutes, 1 [place], Buccal, Q2H, PRN Senokot, 17.2 mg= 2 [...]
--- OUTSIDE RECORDS SUMMARY | 2025-06-14 13:22 | XMS_ITS | Encounter Summary ---
Author Organization [employer] ([place], [place], [place], [place]) Address [address] [place] [address] Care Team Providers Care Inset Cutter Name Role Phone Unavailable Primary Care Provider Unavailabl e Encounter Details Date Type Department Care Team (Late st Contact Info) Description 11/22/2018 Transcribed Document [facility] [place] [address] [place] [address] ProviderErika MD [address] [place], [place] [id number] Social History Tobacco Use Types Packs/Day Years [...] 1940 Associated Diagnoses: CAD (coronary artery disease), [place] coronary artery; Thrombocytopenia; Coronary artery disease; HTN [...] S1, S2, No edema. Integumentary: Warm, Dry, [place], incision is C/D/I. Neurologic: Alert, left sided [...] Prophylaxis: SCDs Diagnosis CAD (coronary artery disease), [place] coronary artery - Admitting, Medical. Thrombocytopenia - Working, Medical. Coronary artery disease - Discharge, Medical. HTN (hypertension) - Pre-Op Diagnosis, Medical. Hypothyroidism - Pre-Op Diagnosis, Medical. Aortic insufficiency - Admitting, Medical. Aortic insufficiency - Discharge, Medical. RLS (restless legs syndrome) - Pre-Op Diagnosis, Medical. Thoracic ascending aortic aneurysm - Admitting, Medical. Thoracic ascending aortic aneurysm - Discharge, Medical. Electronically signed by Parveen, [facility] Conversion Billing Machine Operator Cerner at 12/08/2022 12:25 PM CDT documented in this encounter Plan of Treatment Not on file documented as of this encounter Visit Diagnoses Not on filedocumented in this encounter
--- OUTSIDE RECORDS SUMMARY | 2025-06-14 13:22 | XMS_ITS | Encounter Summary ---
Author Organization [employer] ([place], [place], [place], [place]) Address [address] [place] [address] Care Team Providers Care Service Delivery Supervisor Name Role Phone Unavailable Primary Care Provider Unavailabl e Encounter Details Date Type Department Care Team (Late st Contact Info) Description 11/21/2018 Transcribed Document [facility] [place] [address] [place] [address] ProviderErika MD [address] [place], [...] MRI to confirm. -continue asa, statin -Continue PT/OT/PRINT BINDING WORKER -control blood pressure, aim for whatever is [...] Tab, Oral, At Bedtime saliva substitutes, 1 [place], Buccal, Q2H, PRN Senokot, 17.2 mg= 2 [...]
--- OUTSIDE RECORDS SUMMARY | 2025-06-14 13:22 | XMS_ITS | Encounter Summary ---
Author Organization [employer] ([place], [place], [place], [place]) Address [address] [place] [address] Care Team Providers Care Outfitter Cabin Name Role Phone Unavailable Primary Care Provider Unavailabl e Encounter Details Date Type Department Care Team (Late st Contact Info) Description 11/29/2018 Transcribed Document [facility] [place] [address] [place] [address] ProviderErika MD [address] [place] [address] Social History Tobacco Use Types [...]
--- OUTSIDE RECORDS SUMMARY | 2025-06-14 13:22 | XMS_ITS | Encounter Summary ---
Author Organization [employer] ([place], [place], [place], [place]) Address [address] [place] [address] Care Team Providers Care Tubing Machine Tender Name Role Phone Unavailable Primary Care Provider Unavailabl e Encounter Details Date Type Department Care Team (Late st Contact Info) Description 11/29/[address] [facility] [place] [address] [place] [address] ProviderErika MD [address] [place], [place] [id number] Social History Tobacco Use Types Packs/Day Years Used Date Smoking Tobacco: Never Assessed Sex and Gender Information Value Date Recorded Sex Assigned at Not on file Legal Sex Male 5:03 PM CDT Gender Identity Not on file Sexual Orientation Not on file documented as of this encounter Miscellaneous Notes * Cerner Conversion Note - Historical ProviderMD - 11/29/2018 2:00 AM CDT Advertising Material Distributor Details Entered On: 11/29/2018 1:39 EDT Performed [...]
--- OUTSIDE RECORDS SUMMARY | 2025-06-14 13:22 | XMS_ITS | Encounter Summary ---
Author Organization [employer] ([place], [place], [place], [place]) Address [address] [place] [address] Care Team Providers Care Adjunct Professor Of English Name Role Phone Unavailable Primary Care Provider Unavailabl e Encounter Details Date Type Department Care Team (Late st Contact Info) Description 11/22/2018 Transcribed Document [facility] [place] [address] [place] [address] ProviderErika MD [address] [place], [...] Source : Measured Height Entry Format : [place] Height, Feet : 6 ft Height, Inches [...]
--- OUTSIDE RECORDS SUMMARY | 2025-06-14 13:22 | XMS_ITS | Encounter Summary ---
Author Organization [employer] ([place], [place], [place], [place]) Address [address] [place] [address] Care Team Providers Care Butcher Helper Name Role Phone Unavailable Primary Care Provider Unavailabl e Encounter Details Date Type Department Care Team (Late st Contact Info) Description 11/22/2018 Transcribed Document [facility] [place] [address] [place] [address] ProviderErika MD [address] [place] [address] Social History Tobacco Use Types [...]
--- OUTSIDE RECORDS SUMMARY | 2025-06-14 13:22 | XMS_ITS | Encounter Summary ---
Author Organization [employer] ([place], [place], [place], [place]) Address [address] [place] [address] Care Team Providers Care Physical Therapy Coordinator Name Role Phone Unavailable Primary Care Provider Unavailabl e Encounter Details Date Type Department Care Team (Late st Contact Info) Description 11/22/2018 Transcribed Document [facility] [place] [address] [place] [address] ProviderErika MD [address] [place] [address] Social History Tobacco Use Types [...] unspecified 11/17/2018 00:00 Atherosclerotic heart disease of [place] coronary artery without angina pectoris 11/17/2018 00:00 Essential (primary) hypertension 11/17/2018 00:00 Hypothyroidism, unspecified 11/17/2018 00:00 Nonrheumatic aortic (valve) insufficiency 11/17/2018 00:00 Restless legs syndrome 11/17/2018 00:00 Thoracic aortic aneurysm, without rupture 11/17/2018 00:00 Thrombocytopenia, unspecified 11/16/2018 00:00 Atherosclerotic heart disease of [place] coronary artery without angina pectoris 11/16/2018 00:00 [...] TARI MOORE OTR/L 11/23/2018 15:10 EDT Hand Sand Filler Test : trace with digits TARI MOORE [...] TARI MOORE OTR/Ginny - 11/23/2018 15:10 EDT Prison Goals, OT Self Feeding LTG Grid Goal [...] EDT Electronically signed by Michele Saini Conversion V Belt Mold Assembler And Curer Cerner at 12/08/2022 12:19 PM CDT documented in this encounter Plan of Treatment Not on file documented as of this encounter Visit Diagnoses Not on filedocumented in this encounter
--- OUTSIDE RECORDS SUMMARY | 2025-06-14 13:22 | XMS_ITS | Encounter Summary ---
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 Respiratory Assessment Comment : Nasal cannula MAMTA SOLO, ERIC - 11/23/2018 14:12 EDT Visit Type, HOT PRESS OPERATOR : Initial evaluation Patient Orders : Speech Language Pathology Evaluation and Treatment -111 Start: 11/22/18 11:18:00 EDT, Routine, For Speech Language Cognitive Eval and Treat - JAY JAY CRESPO MD-DIANE HOT PRESS OPERATOR Fxnl Limitation Documentation - Start: 11/20/18 9:37:47 EDT, Continuous Order -111 SYSTEM, SYSTEM Speech Language Pathology Additional Tx - Start: 11/20/18 9:36:00 EDT, For Dysphagia, Continuous Order -111 Admission Date : Admission Date/Time: 11/16/18 06:45:00 Medical Chart Reviewed, HOT PRESS OPERATOR : Yes Personal Devices : Personal Devices No Devices Recorded Assistive Devices : Assistive Devices No Devices Recorded Active Diagnoses : 11/23/2018 00:00 Cerebral infarction, unspecified 11/17/2018 00:00 Atherosclerotic heart disease of [place] coronary artery without angina pectoris 11/17/2018 00:00 Essential (primary) hypertension 11/17/2018 00:00 Hypothyroidism, unspecified 11/17/2018 00:00 Nonrheumatic aortic (valve) insufficiency 11/17/2018 00:00 Restless legs syndrome 11/17/2018 00:00 Thoracic aortic aneurysm, without rupture 11/17/2018 00:00 Thrombocytopenia, unspecified 11/16/2018 00:00 Atherosclerotic heart disease of [place] coronary artery without angina pectoris 11/16/2018 00:00 [...] Gag Reflex Intact : Yes Intubation Comment, HOT PRESS OPERATOR : 11/16-11/17 Vital Signs RTF : [...] 13:41 EDT General Status Patient Received Status, HOT PRESS OPERATOR : Supine in bed Patient Left Status, HOT PRESS OPERATOR : Supine in bed MAMTA SOLO [...] Oral Mechanism for Daily Living : Intact HOT PRESS OPERATOR Cough : Weak MMATA SOLO SLP - 11/23/2018 14:12 EDT Motor [...] 14:12 EDT Evaluation Methods Types of Evaluation, HOT PRESS OPERATOR : Informal MAMTA SOLO SLP - 11/23/2018 14:12 EDT [facility] Impressions Impressions, Speech/Lang/Cog : Other: Mixed expressive/receptive communication impairment [facility] Overall Impressions : Communication [...] - 11/23/2018 14:12 EDT Therapy Indication Assessment HOT PRESS OPERATOR Indicated : Yes HOT PRESS OPERATOR Interdisciplinary Consultation Needs : No HOT PRESS OPERATOR Problem List : Impaired, Spoken Language Comprehension, Impaired, Spoken Language Expression MAMTA SOLO SLP - 11/23/2018 14:12 EDT LTG Lang/Comm/Cog LTG HOT PRESS OPERATOR [employer]cher [employer] Boards Goal 1 [employer] Bo[employer] Goal 2 Goals : Improved spoken language [...] MAMTA SOLO SLP - 11/23/2018 14:12 EDT HOT PRESS OPERATOR Education Assessment Grid 1 Evaluation Results : Verbalizes understanding MAMTA SOLO SLP - 11/23/2018 14:12 EDT HOT PRESS OPERATOR Education Assessment Grid 2 Treatment Plan : Verbalizes understanding MAMTA SOLO SLP - 11/23/2018 14:[address] [facility] Evaluation of Speech Production & Language : 1 MAMTA SOLO SLP - 11/23/2018 14:12 EDT Anticipated Discharge Needs, HOT PRESS OPERATOR Anticipated Discharge to OT : Rehab, high intensity Recommend Continued Therapy at Discharge : Yes MAMTA SOLO SLP - 11/23/2018 14:12 EDT documented in this encounter Plan of Treatment Not on file documented as of this encounter Visit Diagnoses Not on filedocumented in this encounter
--- OUTSIDE RECORDS SUMMARY | 2025-06-14 13:23 | XMS_ITS | Encounter Summary ---
Author Organization [employer] ([place], [place], [place], [place]) Address [address] [place] [address] Care Team Providers Care Binder Stripper Machine Name Role Phone Unavailable Primary Care Provider Unavailabl e Encounter Details Date Type Department Care Team (Late st Contact Info) Description 11/23/2018 Transcribed Document [facility] [place] [address] [place] [address] ProviderErika MD [address] [place] [address] Social History Tobacco Use Types [...] Time of Assessment : 11/23/2018 20:00 EDT [facility] Clinician Administering Scale : SHELDON MUELLER [...] in one limb NIH Sensory (8) : [id number] sensory loss NIH Best Language (9) : No aphasia NIH Dysarthria (10) : Normal Extinction and Inattention (11) : No abnormality NIH Scale Score : 9 SHELDON MUELLER RN - 11/23/2018 20:14 EDT documented in this encounter Plan of Treatment Not on file documented as of this encounter Visit Diagnoses Not on filedocumented in this encounter
--- OUTSIDE RECORDS SUMMARY | 2025-06-14 13:23 | XMS_ITS | Encounter Summary ---
Author Organization [employer] ([place], [place], [place], [place]) Address [address] [place] [address] Care Team Providers Care Drafter Civil Engineering Name Role Phone Unavailable Primary Care Provider Unavailabl e Encounter Details Date Type Department Care Team (Late st Contact Info) Description 11/29/2018 Transcribed Document [facility] [place] [address] [place] [address] ProviderErika MD [address] [place], [place] [id number] Social History Tobacco Use Types Packs/Day Years [...] 1940 Associated Diagnoses: CAD (coronary artery disease), [place] coronary artery; Thrombocytopenia; Coronary artery disease; [...] Non-distended, Normal bowel sounds. Integumentary: Warm, Dry, [place], incision is C/D/I. Neurologic: Alert, left sided [...] (Current Encounter/Past 24 Hours) PT 31.3 Second(s) [place] 11/29/2018 06:38 PTT 27.6 Second(s) 11/28/2018 08:53 INR 3.0 [place] 11/29/2018 06:38 . Impression and Plan Plan: [...] time of discharge- has sent information to [facility] -Transfer to [facility] 11/24/18 -POD#8 -Awaiting transfer to [facility] -Awaiting response from [facility] 11/25/18 -POD#9 -left upper extremity venous doppler - doppler this am positive for LUE DVT - will start coumadin and heparin bridge -awaiting [facility] 11/26/18 -POD#10 -Heparin drip and coumadin for LUE DVT -Left arm swelling improved today -INR 1.1 today, INR goal 2-3 -Possibly transfer to [facility] this weekend 11/27/18: -POD#11 -Left arm swelling continues to improve -Continues on Coumadin and heparin bridge -INR: 1.4 (1.1 yesterday) goal: 2 to 3 -[facility] soon,? Tomorrow 11/28/18: -POD#12 -BP [...] blood has been set up. -[facility] 11/29/18: -POD#13 -Upper endoscopy showed duodenal [...] D/C due to GI bleed. -Transfer to [facility] EF 55-60% per echo 11/16/18 DVT Prophylaxis: SCDs Diagnosis CAD (coronary artery disease), [place] coronary artery - Admitting, Medical. Thrombocytopenia [...] Medical. Electronically signed by Christina Saini Conversion Clinical Documentation Spec Cerner at 12/08/2022 12:15 PM CDT documented in this encounter Plan of Treatment Not on file documented as of this encounter Visit Diagnoses Not on filedocumented in this encounter
--- OUTSIDE RECORDS SUMMARY | 2025-06-14 13:23 | XMS_ITS | Encounter Summary ---
Author Organization [employer] ([place], [place], [place], [place]) Address [address] [place] [address] Care Team Providers Care Search Consultant Name Role Phone Unavailable Primary Care Provider Unavailabl e Encounter Details Date Type Department Care Team (Late st Contact Info) Description 11/30/2018 Transcribed Document [facility] [place] [address] [place] [address] ProviderErika MD [address] [place] [address] Social History Tobacco Use Types [...]
--- OUTSIDE RECORDS SUMMARY | 2025-06-14 13:23 | XMS_ITS | Encounter Summary ---
Author Organization [employer] ([place], [place], [place], [place]) Address [address] [place] [address] Care Team Providers Care Athletic Agent Name Role Phone Unavailable Primary Care Provider Unavailabl e Encounter Details Date Type Department Care Team (Late st Contact Info) Description 11/30/2018 Transcribed Document [facility] [place] Family Medicine [address] [place] [address] ProviderErika MD [address] [place], [place] [id number] Social History Tobacco Use Types Packs/Day Years [...] 1940 Associated Diagnoses: CAD (coronary artery disease), [place] coronary artery; Thrombocytopenia; Coronary artery disease; HTN [...] Non-distended, Normal bowel sounds. Integumentary: Warm, Dry, [place], incision is C/D/I. Neurologic: Alert, left sided [...] (Current Encounter/Past 24 Hours) PT 27.4 Second(s) [place] 11/30/2018 07:23 INR 2.6 [place] 11/30/2018 07:23 . Impression and Plan Plan: [...] of discharge- CM has sent information to [facility] -Transfer to [facility] 11/24/18 -POD#8 -Awaiting transfer to [facility] -Awaiting response from [facility] 11/25/18 -POD#9 -left upper extremity venous doppler - doppler this am positive for LUE DVT - will start coumadin and heparin bridge -awaiting [facility] 11/26/18 -POD#10 -Heparin drip and coumadin for LUE DVT -Left arm swelling improved today -INR 1.1 today, INR goal 2-3 -Possibly transfer to [facility] this weekend 11/27/18: -POD#11 -Left arm swelling continues to improve -Continues on Coumadin and heparin bridge -INR: 1.4 (1.1 yesterday) goal: 2 to 3 -[facility] soon,? Tomorrow 11/28/18: -POD#12 -BP in 70s-80s this AM -He had a dark black stool and has had a couple of fluid boluses -Heparin was D/C'd and his INR is 2.0 this AM (on coumadin 5mg qd) -Hct is down to 23.6 -GI med has been consulted and he is to undergo EGD -Also some blood has been set up. -Transferred to [facility] 11/29/18: -POD#13 -Upper endoscopy showed [...] D/C due to GI bleed. -Transfer to [facility] 11/30/18 POD # 14 EGD yesterday - duodenal ulceration with clot, no active bleeding and no intervention performed INR trending down, off coumadin and heparin Speech signed off yesterday - speech and cognition back to baseline Watch INR and H&H [facility] upon discharge EF 55-60% per echo 11/16/18 DVT Prophylaxis: SCDs Diagnosis CAD (coronary artery disease), [place] coronary artery - Admitting, Medical. Thrombocytopenia - [...] - Discharge, Medical. Electronically signed by Interface, [facility] Conversion Catalogue And Special Products Manager Cerner at 12/08/2022 12:34 PM CDT documented in this encounter Plan of Treatment Not on file documented as of this encounter Visit Diagnoses Not on filedocumented in this encounter
--- OUTSIDE RECORDS SUMMARY | 2025-06-14 13:23 | XMS_ITS | Encounter Summary ---
Author Organization [employer] ([place], [place], [place], [place]) Address [address] [place] [address] Care Team Providers Care Talent Manager Name Role Phone Unavailable Primary Care Provider Unavailabl e Encounter Details Date Type Department Care Team (Late st Contact Info) Description 11/30/2018 Transcribed Document [facility] [place] Family Medicine [address] [place] [address] ProviderErika MD [address] [place] [address] Social History Tobacco Use Types [...]
--- OUTSIDE RECORDS SUMMARY | 2025-06-14 13:23 | XMS_ITS | Encounter Summary ---
Author Organization [employer] ([place], [place], [place], [place]) Address [address] [place] [address] Care Team Providers Care Auto Clutch Rebuilder Name Role Phone Unavailable Primary Care Provider Unavailabl e Encounter Details Date Type Department Care Team (Late st Contact Info) Description 11/17/2018 Transcribed Document [facility] [place] [address] [place] [address] ProviderErika MD [address] [place], [...]
--- OUTSIDE RECORDS SUMMARY | 2025-06-14 13:23 | XMS_ITS | Encounter Summary ---
Author Organization [employer] ([place], [place], [place], [place]) Address [address] [place] [address] Care Team Providers Care Manager Chemistry Name Role Phone Unavailable Primary Care Provider Unavailabl e Encounter Details Date Type Department Care Team (Late st Contact Info) Description 11/17/2018 Transcribed Document [facility] [place] [address] [place] [address] ProviderErika MD [address] [place] [address] Social History Tobacco Use Types [...] Electronically signed by Christina Saini Conversion Automatic Lump Making Machine Tender Cerner at 12/08/2022 12:31 PM CDT documented in this encounter Plan of Treatment Not on file documented as of this encounter Visit Diagnoses Not on filedocumented in this encounter
--- OUTSIDE RECORDS SUMMARY | 2025-06-14 13:23 | XMS_ITS | Encounter Summary ---
Author Organization [employer] ([place], [place], [place], [place]) Address [address] [place] [address] Care Team Providers Care Oncology Registrar Name Role Phone Unavailable Primary Care Provider Unavailabl e Encounter Details Date Type Department Care Team (Late st Contact Info) Description 11/30/2018 Transcribed Document [facility] [place] Family Medicine [address] [place] [address] ProviderErika MD [address] [place] [address] Social History Tobacco Use Types [...]
--- OUTSIDE RECORDS SUMMARY | 2025-06-14 13:23 | XMS_ITS | Encounter Summary ---
Author Organization [employer] ([place], [place], [place], [place]) Address [address] [place] [address] Care Team Providers Care Cobbler Sole Name Role Phone Unavailable Primary Care Provider Unavailabl e Encounter Details Date Type Department Care Team (Late st Contact Info) Description 11/29/2018 Transcribed Document [facility] [place] Family Medicine [address] [place] [address] ProviderErika MD [address] [place], [...] Erika ProviderMD - 11/29/2018 2:51 PM CDT [facility] Endo PACU Summary Primary Physician: RIGOBERTO YU MD Finalized Date/Time: 11/29/18 15:36:07 Pt. Name: DOTTIE VILLASENORO.B./Sex: 1940 Male Med Rec #: [id number] Physician: JULIO CESAR CARVALHO MD-[facility] Financial #: [id number] Pt. Type: I Room/Bed: 330/1 Admit/Disch: 11/16/18 06:45:00 - Institution: [facility] Endo PACU Case Times Entry 1 In PACU I 11/29/18 15:10:00 Ready for PACU 11/29/18 15:35:00 Discharge Discharge from PACU 11/29/18 15:35:00 I Last Modified By: Destiney Mckenzie RN 11/29/18 15:35:51 [facility] Endo PACU Case Times Audit 11/29/18 15:35:51 Vp Product Management: [email or web address] Modifier: [email or web address] <+> 1 Ready for PACU Discharge <+> 1 Discharge from PACU I Finalized By: Destiney Mckenzie RN Document Signatures Signed By: Destiney Mckenzie RN 11/29/18 15:36 Electronically signed by Parveen [facility] Conversion Concrete Carpenter Cerner at 12/08/2022 12:16 PM CDT documented in this encounter Plan of Treatment Not on file documented as of this encounter Visit Diagnoses Not on filedocumented in this encounter
--- OUTSIDE RECORDS SUMMARY | 2025-06-14 13:23 | XMS_ITS | Encounter Summary ---
Author Organization [employer] ([place], [place], [place], [place]) Address [address] [place] [address] Care Team Providers Care Slp Teacher Name Role Phone Unavailable Primary Care Provider Unavailabl e Encounter Details Date Type Department Care Team (Late st Contact Info) Description 11/23/2018 Transcribed Document [facility] [place] [address] [place] [address] ProviderErika MD [address] [place] [address] Social History Tobacco Use Types [...] unspecified 11/17/2018 00:00 Atherosclerotic heart disease of [place] coronary artery without angina pectoris 11/17/2018 00:00 Essential (primary) hypertension 11/17/2018 00:00 Hypothyroidism, unspecified 11/17/2018 00:00 Nonrheumatic aortic (valve) insufficiency 11/17/2018 00:00 Restless legs syndrome 11/17/2018 00:00 Thoracic aortic aneurysm, without rupture 11/17/2018 00:00 Thrombocytopenia, unspecified 11/16/2018 00:00 Atherosclerotic heart disease of [place] coronary artery without angina pectoris 11/16/2018 00:00 [...] AUDREY GRANDE OTR/Ginny - 11/30/2018 15:25 EDT Long-Term Goals, OT Self Feeding LTG [...] Family present. MaxAx2 chair to bed transfer, SALES AMBASSADOR. RN assisting. Pt's L UE very weak. [...]
--- OUTSIDE RECORDS SUMMARY | 2025-06-14 13:23 | XMS_ITS | Encounter Summary ---
Author Organization [employer] ([place], [place], [place], [place]) Address [address] [place] [address] Care Team Providers Care Rescue Worker Name Role Phone Unavailable Primary Care Provider Unavailabl e Encounter Details Date Type Department Care Team (Late st Contact Info) Description 11/30/[address] [facility] [place] [address] [place] [address] ProviderErika MD [address] [place], [...] room 330. Discussed w/ Carmen from [facility] who is still following pt. She has submitted pt info to for approval. Pt had EGD 11/29 which revealed duodenal ulcer w/ clot but no bleeding, no intervention needed, Off heparin gtt, watching pt's INR and H & H. Speech signed off today, pt is cleared for thins. Met w/ pt and family and informed them of [facility] situation. Also discussed outpt Cardiac Rehab. They prefer to go to [facility]. Phoned them and left msg, [...] on 11/25/18) followed up with [facility] today regarding possible admission - [...] on 11/25/18) followed up with [facility] today regarding possible admission - plan is to submit for approval today after being seen by therapy, for their MD approval. Once accepting MD in place, bed in place and patient is medically stable will be able to transfer due to patient not requiring a insurance prior auth. CM will continue to follow. ODALYS FAULKNER Rn-Wrecking Supervisor - 11/24/18 13:22:19 11/24/18 Andra from [facility] called to let me know they started a precert on this pt. CF ODALYS FAULKNER Rn-Wrecking Supervisor - 11/22/18 13:56:32 11/22/18 Pt has had a cva. Spoke to his Connie and son Sumeet at the bedside. Pt is lfacid on the left side. Discussed the need for STR and they decided on [facility]. Sent pt info via [employer] to [facility]. CF Documentation Status Complete : Yes SUZANNA HAINES Urban Planning Teacher - 11/30/2018 15:24 EDT Discharge Planning Details Persons Assisting Patient at Home : Spouse SUZANNA HAINES Social Worker - 11/30/2018 15:24 EDT Electronically signed by [facility] Conversion Car Checker Felipe at 12/08/2022 12:27 PM CDT documented in this encounter Plan of Treatment Not on file documented as of this encounter Visit Diagnoses Not on filedocumented in this encounter
--- OUTSIDE RECORDS SUMMARY | 2025-06-14 13:23 | XMS_ITS | Encounter Summary ---
Author Organization [employer] ([place], [place], [place], [place]) Address [address] [place] [address] Care Team Providers Care Software Sales Manager Name Role Phone Unavailable Primary Care Provider Unavailjuliana e Encounter Details Date Type Department Care Team (Late st Contact Info) Description 11/17/2018 Transcribed Document [facility] [place] [address] [place] [address] ProviderErika MD [address] [place] [address] Social History Tobacco Use Types [...] On: 11/17/2018 11:49 EDT by Lizabeth Marti, Organizational Development Manager Nutrition Assessment Nutrition Assessment Reason : [...] wnls + sternum midline incision GI: LBM EGYPTOLOGIST, hypoactive BS, +NGT, +chest tube (1030 ml) HT: 185cm (6'1) ADMIT WT: 79kg/174# BMI: 23 IBW: 79kg/100% NFPE: insignificant EST NEEDS: 4437-2976 kcal (25-30kcal/kg), 95g pro (1.2g/kg) Lizabeth Marti [...] recommend initate po diet (cardiac) w/consitencies per ASSISTANT GROCERY STORE MANAGER. RD will monitor need for supplement. goal: [...]
--- OUTSIDE RECORDS SUMMARY | 2025-06-14 13:23 | XMS_ITS | Encounter Summary ---
Author Organization [employer] ([place], [place], [place], [place]) Address [address] [place] [address] Care Team Providers Care Processing Manager Name Role Phone Unavailable Primary Care Provider Unavailabl e Encounter Details Date Type Department Care Team (Late st Contact Info) Description 11/30/2018 Transcribed Document [facility] [place] [facility] [place] [address] ProviderErika MD [address] [place] [address] Social History Tobacco Use Types [...] Jose MD - 11/30/2018 3:31 PM CDT [address] [address] Patient Copy Patient Information: Name: DOTTIE VILLASENOR Current Date: 11/30/2018 15:31:38 : 1940 Patient Address: [address] [place] [id number] Patient Attending Physician: JULIO CESAR CARVALHO MD-[facility] Primary Care Provider: DEMETRICE ARMIJO NP-[facility] Primary Care Provider Discharge Diagnosis: Acute blood loss anemia; Aortic insufficiency; Coronary artery disease; GI bleed; LUE DVT (deep venous thrombosis); Right MCA CVA (cerebral vascular accident); Thoracic ascending aortic aneurysm Weight on Admission: 174 lb, 5 oz Weight at Discharge: 164 lb, 1 oz Comment: Follow-up Instructions: With: Address: When: JOHN BOWEN [address], [address] [place] [address] Business (1) Within 6 weeks Comments: Patient should call for a follow up appointment with [facility]. Discharge Instructions: Driving after Discharge: Do not drive, Other: No driving or operating heavy machinery until released by a physician. Community Services: Outpt Cardiac Rehab [facility] [phone] They will call pt w/ appt time. [...] 09/17/2005 Document Revised: 01/15/2017 Document Reviewed: 02/10/2014 [employer] Interactive Patient Education ? 2017 [employer] CIGARETTE SMOKING: The facts are clear, cigarette smoking will shorten your life. Smoking can cause many illnesses along the way. As a healthcare provider, we recommend that you stop smoking. Assistance with quitting is available by contacting 0-061-XKTG-NOW. This is a free resource providing counseling, [...] Be sure to sign up for the [facility] patient portal, which gives you 16/03 access to your medical information ??? including these discharge instructions ??? using your computer, smartphone, or tablet. Just go to [employer] to get started. Questions? Call . [facility] would like to thank you for allowing us to assist you with your healthcare needs. HAMILTON Jarvis ROBERT H, (or herbicide service sales representative) have received the above patient education materials/instructions and have verbalized understanding: Patient Signature _ Date/Time Patient Tail Trimmer Signature (if needed) Date/Time Clinician/Hospital Tail Trimmer Signature (if needed) Date/Time Electronically signed by Parveen [facility] Conversion Steam Press Operator Felipe at 12/08/2022 12:33 PM CDT documented in this encounter Plan of Treatment Not on file documented as of this encounter Visit Diagnoses Not on filedocumented in this encounter
--- OUTSIDE RECORDS SUMMARY | 2025-06-14 13:23 | XMS_ITS | Encounter Summary ---
Author Organization [employer] ([place], [place], [place], [place]) Address [address] [place] [address] Care Team Providers Care Nuclear Waste Management Engineer Name Role Phone Unavailable Primary Care Provider Unavailabl e Encounter Details Date Type Department Care Team (Late st Contact Info) Description 11/29/2018 Transcribed Document [facility] [place] [address] [place] [address] ProviderErika MD [address] [place], [...]
--- OUTSIDE RECORDS SUMMARY | 2025-06-14 13:23 | XMS_ITS | Encounter Summary ---
Author Organization [employer] ([place], [place], [place], [place]) Address [address] [place] [address] Care Team Providers Care Vegetable Vendor Name Role Phone Unavailable Primary Care Provider Unavailabl e Encounter Details Date Type Department Care Team (Late st Contact Info) Description 11/17/2018 Transcribed Document [facility] [place] Family Medicine [address] [place] [address] ProviderErika MD [address] [place] [address] Social History Tobacco Use [...] EDT Electronically signed by Christina Saini Conversion Absorption Plant Operator Helper Cerner at 12/08/2022 12:31 PM CDT documented in this encounter Plan of Treatment Not on file documented as of this encounter Visit Diagnoses Not on filedocumented in this encounter
--- OUTSIDE RECORDS SUMMARY | 2025-06-14 13:23 | XMS_ITS | Encounter Summary ---
Author Organization [employer] ([place], [place], [place], [place]) Address [address] [place] [address] Care Team Providers Care Production Metal Sprayer Name Role Phone Unavailable Primary Care Provider Unavailabl e Encounter Details Date Type Department Care Team (Late st Contact Info) Description 11/29/2018 Transcribed Document [facility] [place] Family Medicine [address] [place] [address] ProviderErika MD [address] [place], [place] [id number] Social History Tobacco Use Types Packs/Day Years Used Date Smoking Tobacco: Never Assessed Sex and Gender Information Value Date Recorded Sex Assigned at Not on file Legal Sex Male 5:03 PM CDT Gender Identity Not on file Sexual Orientation Not on file documented as of this encounter Miscellaneous Notes * Cerner Conversion Note - Erika ProviderMD - 11/29/2018 1:37 PM CDT Discharge Summary, MAINTENANCE REPAIRER Entered On: 11/29/2018 13:40 EDT Performed On: 11/29/2018 13:37 EDT by JOSSUE RODRÍGUEZ MAINTENANCE REPAIRER Discharge Notation. MAINTENANCE REPAIRER Dysphagia Treatment After Discharge : No Discharge Diet : Regular Discharge Liquids : Thin Discharge Summary Comment, MAINTENANCE REPAIRER : Attempted to see pt for language [...] - 11/29/2018 13:37 EDT LTG Lang/Comm/Cog LTG MAINTENANCE REPAIRER Bridge Painter Helper Goal 1 Retirement Goal 2 Goals : Improved spoken language expression at the time of discharge Improved auditory/spoken language comprehension at the time of discharge Status : Discontinue Discontinue JOSSUE RODRÍGUEZ SLP - 11/29/2018 13:37 EDT JOSSUE RODRÍGUEZ, [facility] - 11/29/2018 13:37 EDT STG Lang_Comm_Cog Motor Speech STG Grid Goal #1 Activity : Improve intelligibility of speech Status : Discontinue JOSSUE RODRÍGUEZ [facility] - 11/29/2018 13:37 EDT Auditory Comprehension Grid Goal #1 Goal #2 Activity : Follow directions, 3 step commands simple Comprehend paragraph complex Status : Discontinue Discontinue JOSSUE RODRÍGUEZ [facility] - 11/29/2018 13:37 EDT JOSSUE RODRÍGUEZ, [facility] - 11/29/2018 13:37 EDT Verbal Expression STG Grid Goal #1 Activity : Generate items in a category Status : Discontinue JOSSUE RODRÍGUEZ MAINTENANCE REPAIRER - 11/29/2018 13:37 EDT Reading Comprehension STG Grid Goal #1 Activity : Visual perception deficits Status : Discontinue JOSSUE RODRÍGUEZ [facility] - 11/29/2018 13:37 EDT Attention STG Grid Goal #1 Activity : Other: Probe Status : Goal met Date Met : 11/24/2018 [address]T [address]UE R[address]RÍ[address]UEZ [facility] - 11/29/2018 13:37 EDT Memory STG Grid Goal #1 Goal #2 Goal #3 Activity : Other: Probe Improve short term functional delayed Improve short term working memory Status : Goal met Discontinue Discontinue Date Met : 11/24/2018 EDT JOSSUE RODRÍGUEZ, [facility] - 11/29/2018 13:37 EDT JOSSUE RODRÍGUEZ, [facility] - 11/29/2018 13:37 EDT JOSSUE RODRÍGUEZ, [facility] - 11/29/2018 13:37 EDT Problem Solving STG Grid Goal #1 Goal #2 Goal #3 Goal #4 Activity : Generate a list of simple/concrete items Label items in a category, complex/abstract Other: Probe Improve simple problem solving Status : Discontinue Discontinue Goal met Discontinue Date Met : 11/24/2018 EDT JOSSUE RODRÍGUEZ, [facility] - 11/29/2018 13:37 EDT JOSSUE RODRÍGUEZ, [facility] - 11/29/2018 13:37 EDT JOSSUE RODRÍGUEZ, [facility] - 11/29/2018 13:37 EDT JOSSUE RODRÍGUEZ, MAINTENANCE REPAIRER - 11/29/2018 13:37 EDT Swallow Plan/Goals Swallow LTG Grid MAINTENANCE REPAIRER Retirement Goal #1 MAINTENANCE REPAIRER Bridge Painter Helper Goal #2 Swallow LTG : Establish safe [...]
--- OUTSIDE RECORDS SUMMARY | 2025-06-14 13:23 | XMS_ITS | Encounter Summary ---
Author Organization [employer] ([place], [place], [place], [place]) Address [address] [place] [address] Care Team Providers Care Rubber Compounder Mixer Name Role Phone Unavailable Primary Care Provider Unavailabl e Encounter Details Date Type Department Care Team (Late st Contact Info) Description 11/30/2018 Transcribed Document [place] Family Medicine [address] [place] [address] ProviderErika MD [address] [place], [...]
--- OUTSIDE RECORDS SUMMARY | 2025-06-14 13:23 | XMS_ITS | Encounter Summary ---
Author Organization [employer] ([place], [place], [place], [place]) Address [address] [place] [address] Care Team Providers Care Deputy County Attorney Name Role Phone Unavailable Primary Care Provider Unavailabl e Encounter Details Date Type Department Care Team (Late st Contact Info) Description 11/30/2018 Transcribed Document [facility] [place] Family Medicine [address] [place] [address] ProviderErika MD [address] [place] [address] Social History Tobacco Use Types [...] 2 Tab, Oral, BID saliva substitutes, 1 [place], Buccal, Q2H, PRN Senokot, 17.2 mg= 2 Tab, Oral, BID Synthroid, 50 mcg= 2.5 mL, IV Push, Q48H Zofran, 4 mg= 2 mL, IV Push, Q4H, PRN documented in this encounter Plan of Treatment Not on file documented as of this encounter Visit Diagnoses Not on filedocumented in this encounter
--- OUTSIDE RECORDS SUMMARY | 2025-06-14 13:24 | XMS_ITS | Encounter Summary ---
Author Organization [employer] ([place], [place], [place], [place]) Address [address] [place] [address] Care Team Providers Care Cart Pusher Name Role Phone Unavailable Primary Care Provider Unavailabl e Encounter Details Date Type Department Care Team (Late st Contact Info) Description 11/18/2018 Transcribed Document [facility] [place] Family Medicine [address] [place] [address] ProviderErika MD [address] [place] [address] Social History Tobacco Use Types [...] : 11/17/2018 00:00 Atherosclerotic heart disease of [place] coronary artery without angina pectoris 11/17/2018 00:00 Essential (primary) hypertension 11/17/2018 00:00 Hypothyroidism, unspecified 11/17/2018 00:00 Nonrheumatic aortic (valve) insufficiency 11/17/2018 00:00 Restless legs syndrome 11/17/2018 00:00 Thoracic aortic aneurysm, without rupture 11/17/2018 00:00 Thrombocytopenia, unspecified 11/16/2018 00:00 Atherosclerotic heart disease of [place] coronary artery without angina pectoris 11/16/2018 00:00 [...] SENIA QUINTANA PTA - 11/23/2018 10:24 EDT [facility] Goals Mobility/Bed Mobility LTG PT Grid Goal [...] SENIA QUINTANA PTA - 11/23/2018 10:24 EDT [place] PT Charges PT Therap. Exercise 15 min : 1 PT Ther Activities Ea 15 Min : 1 SENIA QUINTANA PTA - 11/23/2018 10:24 EDT documented in this encounter Plan of Treatment Not on file documented as of this encounter Visit Diagnoses Not on filedocumented in this encounter
--- OUTSIDE RECORDS SUMMARY | 2025-06-14 13:24 | XMS_ITS | Encounter Summary ---
Author Organization [employer] ([place], [place], [place], [place]) Address [address] [place] [address] Care Team Providers Care Flaking Roll Operator Name Role Phone Unavailable Primary Care Provider Unavailabl e Encounter Details Date Type Department Care Team (Late st Contact Info) Description 11/25/2018 Transcribed Document [facility] [place] Family Medicine [address] [place] [address] ProviderErika MD [address] [place] [address] Social History Tobacco Use Types [...] On: 11/25/2018 12:20 EDT by THERESA CAZARES [facility] Clinical Interventions Heparin Per Weight-Based Protocol : Yes THERESA CAZARES [facility] - 11/25/2018 12:20 EDT Heparin [...] 11/25/2018 12:20 EDT Electronically signed by Parveen [facility] Conversion Coating Technician Cerner at 12/08/2022 12:35 PM CDT documented in this encounter Plan of Treatment Not on file documented as of this encounter Visit Diagnoses Not on filedocumented in this encounter
--- OUTSIDE RECORDS SUMMARY | 2025-06-14 13:24 | XMS_ITS | Encounter Summary ---
Author Organization [employer] ([place], [place], [place], [place]) Address [address] [place] [address] Care Team Providers Care Hot Air Furnace Installer Repairer Name Role Phone Unavailable Primary Care Provider Unavailabl e Encounter Details Date Type Department Care Team (Late st Contact Info) Description 11/25/2018 Transcribed Document [facility] [place] Family Medicine [address] [place] [address] ProviderErika MD [address] [place] [address] Social History Tobacco Use Types [...] Time of Assessment : 11/25/2018 9:00 EDT [facility] Clinician Administering Scale : Elissa Rodarte RN [...]
--- OUTSIDE RECORDS SUMMARY | 2025-06-14 13:24 | XMS_ITS | Encounter Summary ---
Author Organization [employer] ([place], [place], [place], [place]) Address [address] [place] [address] Care Team Providers Care Respiratory Tech Name Role Phone Unavailable Primary Care Provider Unavailabl e Encounter Details Date Type Department Care Team (Late st Contact Info) Description 11/17/2018 Transcribed Document [facility] [place] Family Medicine [address] [place] [address] ProviderErika MD [address] [place], [place] [id number] Social History Tobacco Use Types Packs/Day Years [...] 1940 Associated Diagnoses: CAD (coronary artery disease), lumbee coronary artery; Thrombocytopenia; Coronary artery disease; HTN (hypertension); Hypothyroidism; Aortic insufficiency; RLS (restless legs syndrome); Thoracic ascending aortic aneurysm Author: MARIEL ROBLES PA Basic Information POD#1 S/P Resection and Grafting of Ascending Thoracic Aortic Aneurysm (30 mm Hemashield graft), 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 and Reimplantation of Coronaries (29 mm Medtronic Freestyle), CABG x 1 (RUSESLL>LAD). 11/17/18: The pt is extubated and O2 [...] Palpable bilateral DP pulses. Integumentary: Warm, Dry, [place]. Neurologic: Not alert. Review / Management Results [...] Prophylaxis: SCDs Diagnosis CAD (coronary artery disease), lumbee coronary artery - Admitting, Medical. Thrombocytopenia - [...] Medical. Electronically signed by Christina Saini Conversion Technical Services Specialist Cerner at 12/08/2022 12:19 PM CDT documented in this encounter Plan of Treatment Not on file documented as of this encounter Visit Diagnoses Not on filedocumented in this encounter
--- OUTSIDE RECORDS SUMMARY | 2025-06-14 13:24 | XMS_ITS | Encounter Summary ---
Author Organization [employer] ([place], [place], [place], [place]) Address [address] [place] [address] Care Team Providers Care Python Engineer Name Role Phone Unavailable Primary Care Provider Unavailabl e Encounter Details Date Type Department Care Team (Late st Contact Info) Description 11/25/2018 Transcribed Document [facility] [place] Family Medicine [address] [place] [address] ProviderErika MD [address] [place] [address] Social History Tobacco Use Types [...] at goal rate. Did have BM yesterday. ICE CRUSHER okayed pt for po diet this am- [...] (11/24) BMI: 23 IBW: 79kg/100% EST NEEDS: 9399-6248 kcal (25-30kcal/kg), 95g pro (1.2g/kg) DAVION GREEN [...] EDT Electronically signed by Christina Saini Conversion Concrete Boom Pump Operator Cerner at 12/08/2022 12:13 PM CDT documented in this encounter Plan of Treatment Not on file documented as of this encounter Visit Diagnoses Not on filedocumented in this encounter
--- OUTSIDE RECORDS SUMMARY | 2025-06-14 13:24 | XMS_ITS | Encounter Summary ---
Author Organization [employer] ([place], [place], [place], [place]) Address [address] [place] [address] Care Team Providers Care Visual Stylist Name Role Phone Unavailable Primary Care Provider Unavailabl e Encounter Details Date Type Department Care Team (Late st Contact Info) Description 11/29/2018 Transcribed Document [facility] [place] Family Medicine [address] [place] [address] Provider, MD Erika [address] [place] [address] Social History Tobacco Use Types Packs/Day Years Used Date Smoking Tobacco: Never Assessed Sex and Gender Information Value Date Recorded Sex Assigned at Not on file Legal Sex Male 5:03 PM CDT Gender Identity Not on file Sexual Orientation Not on file documented as of this encounter Miscellaneous Notes * Cerner Conversion Note - Erika ProviderMD - 11/29/2018 2:30 PM CDT [facility] Onel PreOp Summary Primary Physician: RIGOBERTO YU MD Finalized Date/Time: 11/29/18 14:12:35 Pt. Name: DOTTIE VILLASENOR Ladan /Sex: 1940 Male Med Rec #: [id number] Physician: JULIO CESAR CARVALHO [facility] Financial #: [id number] Pt. Type: I Room/Bed: 330/1 Admit/Disch: 11/16/18 06:45:00 - Institution: [facility] Onel PreOp Case Times Entry 1 In Preop 11/29/18 13:59:00 Ready for Holding n/a Room Patient Ready for 11/29/18 14:12:00 Surgery Patient Out of Preop 11/29/18 14:12:00 Patient Out of n/a Holding Room Last Modified By: Gem Osborne Rn 11/29/18 14:12:33 [facility] Endo PreOp Case Times Audit 11/29/18 14:12:33 Erp Specialist: ASHLEYSTAPLETON Modifier: ASHLEYSTAPLETON <+> 1 Patient Out of Preop <+> 1 Patient Ready for Surgery Finalized By: Gem Osborne Rn Document Signatures Signed By: Gem Osborne Rn 11/29/18 14:12 documented in this encounter Plan of Treatment Not on file documented as of this encounter Visit Diagnoses Not on filedocumented in this encounter
--- OUTSIDE RECORDS SUMMARY | 2025-06-14 13:24 | XMS_ITS | Encounter Summary ---
Author Organization [employer] ([place], [place], [place], [place]) Address [address] [place] [address] Care Team Providers Care Pyroglazer Name Role Phone Unavailable Primary Care Provider Unavailabl e Encounter Details Date Type Department Care Team (Late st Contact Info) Description 11/18/2018 Transcribed Document [facility] Cardiology [address] [place] [address] Lc Armendariz MD [address] [facility] [address] [place] [address] Social History Tobacco Use Types [...] mg, Oral, At Bedtime saliva substitutes: 1 [place], Buccal, Q2H, PRN: Other (See Comment) sodium [...] of motion, Normal strength. Integumentary: Warm, Dry, [place]. Neurologic: Alert, Oriented. Psychiatric: Cooperative, Appropriate mood & affect. Results Review NOV 18 03:37 138 106 19 / H 200 3.8 27 0.90 \ NOV 18 03:37 \ L 10.2 / H 17.7 L 103 / L 30.3 \ Cardiac Markers (Current Encounter/Past 24 Hours) No Cardiac Marker Results Found (Past 24 Hours) Radiology Results (Last 48 hours) [id number] -- 11/16/2018 06:45 CR Chest 1 Vw Portable (11/16/2018 12:55) Result: PORTABLE CHEST HISTORY: Pneumothorax.COMPARISON: 1 day prior.FINDINGS: The heart is stable in size. The patient is status post mediansternotomy. The endotracheal tube is in the mid thoracic trachea. Anasogastric tube extends below the diaphragm. Left-sided [place]-Ganzcatheter tip is in the left main pulmonary [...] day.FINDINGS: The heart is normal in size. [place]-Jovanna catheter tips in theleft pulmonary artery. There [...]
--- OUTSIDE RECORDS SUMMARY | 2025-06-14 13:24 | XMS_ITS | Encounter Summary ---
Author Organization [employer] ([place], [place], [place], [place]) Address [address] [place] [address] Care Team Providers Care Pocketed Spring Assembler Name Role Phone Unavailable Primary Care Provider Unavailabl e Encounter Details Date Type Department Care Team (Late st Contact Info) Description 11/25/2018 Transcribed Document [facility] [place] Family Medicine [address] [place] [address] ProviderErika MD [address] [place] [address] Social History Tobacco Use Types [...]
--- OUTSIDE RECORDS SUMMARY | 2025-06-14 13:24 | XMS_ITS | Encounter Summary ---
Author Organization [employer] ([place], [place], [place], [place]) Address [address] [place] [address] Care Team Providers Care System Support Specialist Name Role Phone Unavailable Primary Care Provider Unavailabl e Encounter Details Date Type Department Care Team (Late st Contact Info) Description 11/25/2018 Transcribed Document [facility] [place] Family Medicine [address] [place] [address] ProviderErika MD [address] [place] [address] Social History Tobacco Use Types [...]
--- OUTSIDE RECORDS SUMMARY | 2025-06-14 13:24 | XMS_ITS | Encounter Summary ---
Author Organization [employer] ([place], [place], [place], [place]) Address [address] [place] [address] Care Team Providers Care Qa Automation Architect Name Role Phone Unavailable Primary Care Provider Unavailabl e Encounter Details Date Type Department Care Team (Late st Contact Info) Description 11/25/2018 Transcribed Document [facility] [place] Family Medicine [address] [place] [address] ProviderErika MD [address] [place] [address] Social History Tobacco Use Types [...]
--- OUTSIDE RECORDS SUMMARY | 2025-06-14 13:25 | XMS_ITS | Encounter Summary ---
Author Organization [employer] ([place], [place], [place], [place]) Address [address] [place] [address] Care Team Providers Care Heavy Equipment Operating Engineer Name Role Phone Unavailable Primary Care Provider Unavailabl e Encounter Details Date Type Department Care Team (Late st Contact Info) Description 12/01/2018 Transcribed Document [facility] [place] [address] [place] [address] ProviderErika MD [address] [place] [address] Social History Tobacco Use Types [...] On: 12/01/2018 13:36 EDT by NAIN JARRETT electrical installation inspector Documentation Discharge Date/Time : 12/01/2018 15:13 EDT NAIN JARRETT RN - 12/01/2018 16:34 EDT Patient Disposition, General : Discharge Discharge To : Rehabilitation unit/facility Name of Receiving Facility/Provider : [facility] Mode Of Departure, General Discharge : [...] information provided to patient and discussed at MD. Verbalized understanding. Worker's Compensation Paperwork Completed : NAIN Gomez RN - 12/01/2018 13:36 EDT documented in this encounter Plan of Treatment Not on file documented as of this encounter Visit Diagnoses Not on filedocumented in this encounter
--- OUTSIDE RECORDS SUMMARY | 2025-06-14 13:25 | XMS_ITS | Clinical Summary ---
Author Organization [facility] Address [address] [place] [address] Care Team Providers Care Securities Lending Trader Name Role Phone Clifford Horner MD Primary Care Provider [phone] Allergies No known active allergies Medications dutasteride [...] r (1 - 1-dose 75+ series) 2014 [id number] Vaccine (3 - Moderna risk series) 02/11/2021 [...] complete this topic Insurance MEDICARE Care Teams Securities Lending Trader Relationship Specialty Start Date End Date Clifford Horner MD [address] [facility] [address] [place] [address] PCP - General 07/14/24
--- OUTSIDE RECORDS SUMMARY | 2025-06-14 13:25 | XMS_ITS | Encounter Summary ---
Author Organization [employer] ([place], [place], [place], [place]) Address [address] [place] [address] Care Team Providers Care Decision Science Analyst Name Role Phone Unavailable Primary Care Provider Unavailabl e Encounter Details Date Type Department Care Team (Late st Contact Info) Description 12/01/2018 Transcribed Document [facility] [place] Family Medicine [address] [place] [address] ProviderErika MD [address] [place] [address] Social History Tobacco Use Types [...] MD - 12/01/2018 1:54 PM CDT [facility] [place] [address] DOTTIE VILLASENOR :1940 Visit Time:11/16/2018 Your Visit Summary Your Care Team Admitting Physician - JULIO CESAR CARVALHO MD-CAT Attending Physician - JULIO CESAR CARVALHO MD-YADIRA Primary Care Physician - DEMETRICE ARMIJO NP-FAM Referring Physician - DEMETRICE ARMIJO NP-FAM Your Diagnosis Acute blood loss anemia Aortic insufficiency, Aortic insufficiency CAD (coronary artery disease), [place] coronary artery, Coronary artery disease GI bleed [...] Your Care Team [facility] RN report #[phone] DC Summary #[phone] You may shower. Make sure your back [...] IF you have a fever greater than [address], call the surgeon. DO NOT drive for [...] Where: [address] [place] [place] [address]- Business (1) Follow Up with JULIO CESAR CARVALHO When 12/15/2018 12:15 PM EDT Where: [address] [place] [address] Business (1) Follow Up with DEMETRICE ARMIJO When Within 1 week Comments When you are discharged from [facility] please call to make a 1 week hospital follow-up appointment. Where: [address] [place] [address]- Follow Up with JOHN BOWEN When Within 6 weeks Comments Patient should call for a follow up appointment with [facility] Neurology. Where: [address] [place] [address]- Business (1) Medications What How [...] contain harmful chemicals. FOR MORE INFORMATION ??? [employer]: www.lung.org ??? [employer]: www.cancer.org This information is not intended to replace advice given to you by your health care provider. Make sure you discuss any questions you have with your health care provider. Document Released: 09/17/2005 Document Revised: 12/01/2016 Document Reviewed: 01/30/2014 [employer] Interactive Patient Education ?? 2017 [employer] How to Take Your Blood Pressure [...] 07/23/2009 Document Revised: 08/31/2015 Document Reviewed: 10/05/2014 [employer] Patient Education ?? 2017 [employer] How to Take a Pulse Your [...] 02/14/2004 Document Revised: 02/27/2017 Document Reviewed: 01/13/2017 [employer] Patient Education ?? 2017 [employer]. Coronary Artery Bypass Grafting, Care After [...] 02/27/2006 Document Revised: 08/31/2015 Document Reviewed: 01/17/2014 [employer] Interactive Patient Education ?? 2017 [employer] Bleeding Precautions When on Anticoagulant Therapy [...] can be dangerous for you. ??? Many gkjr-tif-onivzxt medicines for pain, colds, or stomach problems [...] provider. Document Released: 07/21/2016 Document Reviewed: 07/21/2016 [employer] Interactive Patient Education ?? 2017 [employer]. Atrial Fibrillation Introduction Atrial fibrillation is a [...] Follow these instructions at home: ??? Take ilxv-lqf-wvpupzr and prescription medicines only as told by [...] 09/17/2005 Document Revised: 01/15/2017 Document Reviewed: 02/10/2014 [employer] Interactive Patient Education ?? 2017 [employer]edo. misoprostol (reji ramos) [facility] What is the most important information I [...] may report side effects to FDA at 1-498-YIK-1377. What other drugs will affect misoprostol? Other drugs may interact with misoprostol, including prescription and ibzv-fhd-yskexni medicines, vitamins, and herbal products. Tell each [...] to ensure that the information provided by [employer]. ('Multum') is accurate, up-to-date, and complete, but no guarantee is made to that effect. Drug information contained herein may be time sensitive. Web[employer]ayers information has been compiled for use by healthcare practitioners and consumers in the [place] and therefore WebLayers does not warrant that uses outside of the [place] are appropriate, unless specifically indicated otherwise. [employer] drug information does not endorse drugs, diagnose patients or recommend therapy. [employer] drug information is an informational resource designed [...] effective or appropriate for any given patient. [employer] does not assume any responsibility for any aspect of healthcare administered with the aid of information [employer]ayers provides. The information contained herein is not intended to cover all possible uses, directions, precautions, warnings, drug interactions, allergic reactions, or adverse effects. If you have questions about the drugs you are taking, check with your doctor, nurse or pharmacist. Copyright 4584-9112 [employer]. Version: 8.01. Revision Date: 03/02/2014.sucralfate (oral) [...] may report side effects to FDA at 3-670-KZN-5487. What other drugs will affect sucralfate? Sucralfate can make it harder for your body to absorb other medications you take by mouth. Avoid taking any other medications within 2 hours before or after you take sucralfate. Other drugs may interact with sucralfate, including prescription and hsrw-uws-jmcdssp medicines, vitamins, and herbal products. Tell each [...] to ensure that the information provided by [employer]. ('Multum') is accurate, up-to-date, and complete, but no guarantee is made to that effect. Drug information contained herein may be time sensitive. WebLayers information has been compiled for use by healthcare practitioners and consumers in the [place] and therefore [employer] does not warrant that uses outside of the [place] are appropriate, unless specifically indicated otherwise. [employer] drug information does not endorse drugs, diagnose patients or recommend therapy. [employer] drug information is an informational resource designed [...] effective or appropriate for any given patient. [employer] does not assume any responsibility for any aspect of healthcare administered with the aid of information [employer]Layers provides. The information contained herein is not intended to cover all possible uses, directions, precautions, warnings, drug interactions, allergic reactions, or adverse effects. If you have questions about the drugs you are taking, check with your doctor, nurse or pharmacist. Copyright 8110-2245 [employer]. Version: 8.01. Revision Date: 01/03/2013.sucralfate (oral) [...] may report side effects to FDA at 1-375-CKO-7087. What other drugs will affect sucralfate? Sucralfate can make it harder for your body to absorb other medications you take by mouth. Avoid taking any other medications within 2 hours before or after you take sucralfate. Other drugs may interact with sucralfate, including prescription and kltt-ttm-prghgjo medicines, vitamins, and herbal products. Tell each [...] to ensure that the information provided by [employer]. ('Multum') is accurate, up-to-date, and complete, but no guarantee is made to that effect. Drug information contained herein may be time sensitive. WebLayers information has been compiled for use by healthcare practitioners and consumers in the [place] and therefore [employer]Layers does not warrant that uses outside of the [place] are appropriate, unless specifically indicated otherwise. On[employer]opes drug information does not endorse drugs, diagnose patients or recommend therapy. On[employer]opes drug information is an informational resource designed [...] effective or appropriate for any given patient. [employer]ayers does not assume any responsibility for any aspect of healthcare administered with the aid of information [facility] [employer] provides. The information contained herein is not intended to cover all possible uses, directions, precautions, warnings, drug interactions, allergic reactions, or adverse effects. If you have questions about the drugs you are taking, check with your doctor, nurse or pharmacist. Copyright 7651-1146 [employer]. Version: 8.01. Revision Date: 01/03/2013. Emergency [...] Assistance with quitting is available by contacting 6-650-LSQMGarmentoryNOW. This is a free resource providing counseling, [...]
--- OUTSIDE RECORDS SUMMARY | 2025-06-14 13:25 | XMS_ITS | Encounter Summary ---
Author Organization [employer] ([place], [place], [place], [place]) Address [address] [place] [address] Care Team Providers Care Motor And Chassis Inspector Name Role Phone Unavailable Primary Care Provider Unavailabl e Encounter Details Date Type Department Care Team (Late st Contact Info) Description 11/18/2018 Transcribed Document [facility] [place] [address] [place] [address] ProviderErika MD [address] [place] [address] Social History Tobacco Use Types [...] Source : Measured Height Entry Format : [place] Height, Feet : 6 ft Height, Inches [...]
--- OUTSIDE RECORDS SUMMARY | 2025-06-14 13:25 | XMS_ITS | Encounter Summary ---
Author Organization [employer] ([place], [place], [place], [place]) Address [address] [place] [address] Care Team Providers Care Multiple Pressure Riveter Operator Name Role Phone Unavailable Primary Care Provider Unavailabl e Encounter Details Date Type Department Care Team (Late st Contact Info) Description 11/18/2018 Transcribed Document [facility] [place] [address] [place] [address] ProviderErika MD [address] [place], [place] [id number] Social History Tobacco Use Types Packs/Day Years [...] 1940 Associated Diagnoses: CAD (coronary artery disease), [place] coronary artery; Thrombocytopenia; Coronary artery disease; HTN [...] S1, S2, No edema. Integumentary: Warm, Dry, [place], incision is C/D/I. Neurologic: Alert, he did [...] Prophylaxis: SCDs Diagnosis CAD (coronary artery disease), [place] coronary artery - Admitting, Medical. Thrombocytopenia - Working, Medical. Coronary artery disease - Discharge, Medical. HTN (hypertension) - Pre-Op Diagnosis, Medical. Hypothyroidism - Pre-Op Diagnosis, Medical. Aortic insufficiency - Admitting, Medical. Aortic insufficiency - Discharge, Medical. RLS (restless legs syndrome) - Pre-Op Diagnosis, Medical. Thoracic ascending aortic aneurysm - Admitting, Medical. Thoracic ascending aortic aneurysm - Discharge, Medical. Electronically signed by Parveen, [facility] Conversion Change Control Coordinator Cerner at 12/08/2022 12:19 PM CDT documented in this encounter Plan of Treatment Not on file documented as of this encounter Visit Diagnoses Not on filedocumented in this encounter
--- OUTSIDE RECORDS SUMMARY | 2025-06-14 13:25 | XMS_ITS | Encounter Summary ---
Author Organization [employer] ([place], [place], [place], [place]) Address [address] [place] [address] Care Team Providers Care Cable Wirer Name Role Phone Unavailable Primary Care Provider Unavailabl e Encounter Details Date Type Department Care Team (Late st Contact Info) Description 11/18/2018 Transcribed Document [facility] [place] Family Medicine [address] [place] [address] ProviderErika MD [address] [place] [address] Social History Tobacco Use Types [...] EDT Electronically signed by Christina Saini Conversion Aircraft Landing Gear Inspector Cerner at 12/08/2022 12:26 PM CDT documented in this encounter Plan of Treatment Not on file documented as of this encounter Visit Diagnoses Not on filedocumented in this encounter
--- OUTSIDE RECORDS SUMMARY | 2025-06-14 13:25 | XMS_ITS | Encounter Summary ---
Author Organization Healthcare Address [address] [place] [address] Care Team Providers Care Crm Technical Lead Name Role Phone Sanjuana Valdez APRN Primary Care Provider [phone] Clifford Horner MD Primary Care Provider [phone] Encounter Details Date Type Department Care Team (Late st Contact Info) Description 06/02/2022 Community [facility] Community Practice [address] [place] [address] Joanna Zamora, DPM [address] [place], [place] [id number] Contracture of left ankle (Primary Dx); Contracture [...] foot documented in this encounter Care Teams Crm Technical Lead Relationship Specialty Start Date End Date Sanjuana Valdez APRN [address] [place] [address] PCP - General 01/04/21 07/13/24 Clifford Horner MD [address] [place] [address] PCP - General 07/14/24 documented as of this encounter
--- OUTSIDE RECORDS SUMMARY | 2025-06-14 13:25 | XMS_ITS | Encounter Summary ---
Author Organization [employer] ([place], [place], [place], [place]) Address [address] [place] [address] Care Team Providers Care Tag Machine Operator Name Role Phone Unavailable Primary Care Provider Unavailabl e Encounter Details Date Type Department Care Team (Late st Contact Info) Description 12/01/2018 Transcribed Document [facility] [place] [address] [place] [address] ProviderErika MD [address] [place] [address] Social History Tobacco Use [...] Jose MD - 12/01/2018 1:32 PM CDT [address] [address] Patient Copy Patient Information: Name: DOTTIE VILLASENOR Current Date: 12/01/2018 13:32:25 : 1940 Patient Address: [address] [place] [phone] Patient Attending Physician: JULIO CESAR CARVALHO MD-CAT Primary Care Provider: DEMETRICE ARMIJO NP-[facility] Primary Care Provider Discharge Diagnosis: Acute blood loss anemia; Aortic insufficiency; Coronary artery disease; GI bleed; LUE DVT (deep venous thrombosis); Right MCA CVA (cerebral vascular accident); Thoracic ascending aortic aneurysm Weight on Admission: 174 lb, 5 oz Weight at Discharge: 159 lb Comment: Follow-up Instructions: With: Address: When: DEMETRICE ARMIJO [address] [place], [place] [id number] Within 1 week Comments: When you are discharged from [facility] please call to make a 1 week hospital follow-up appointment. With: Address: When: JULIO CESAR DEY [address] [place] [address] Business (1) 1:15 PM With: Address: When: JULIO CESAR CARVALHO [address] [place] [address] Business (1) Within 2 weeks With: Address: When: JOHN BOWEN [address] [place] [address] Business (1) Within 6 weeks Comments: Patient should call for a follow up appointment with [facility] Neurology. Discharge Instructions: Driving after Discharge: Do not drive, Other: No driving or operating heavy machinery until released by a physician. Community Services: Outpt Cardiac Rehab [facility] [phone] They will call pt w/ appt time. [...] 09/17/2005 Document Revised: 01/15/2017 Document Reviewed: 02/10/2014 [employer] Interactive Patient Education ? 2017 [employer]. CIGARETTE SMOKING: The facts are clear, cigarette smoking will shorten your life. Smoking can cause many illnesses along the way. As a healthcare provider, we recommend that you stop smoking. Assistance with quitting is available by contacting 9-360-ZVJK-NOW. This is a free resource providing counseling, [...] Be sure to sign up for the [facility] patient portal, which gives you 16/03 access to your medical information ??? including these discharge instructions ??? using your computer, smartphone, or tablet. Just go to MojoPages to get started. Questions? Call . [facility] would like to thank you for allowing us to assist you with your healthcare needs. HAMILTON Jarvis ROBERT H, (or sales representatives) have received the above patient education materials/instructions and have verbalized understanding: Patient Signature _ Date/Time Patient Burling And Joining Supervisor Signature (if needed) Date/Time Clinician/Hospital Burling And Joining Supervisor Signature (if needed) Date/Time documented in this encounter Plan of Treatment Not on file documented as of this encounter Visit Diagnoses Not on filedocumented in this encounter
--- OUTSIDE RECORDS SUMMARY | 2025-06-14 13:25 | XMS_ITS | Encounter Summary ---
Author Organization [employer] ([place], [place], [place], [place]) Address [address] [place] [address] Care Team Providers Care Monument Setter Name Role Phone Unavailable Primary Care Provider Unavailabl e Encounter Details Date Type Department Care Team (Late st Contact Info) Description 11/18/2018 Transcribed Document [facility] [place] Family Medicine [address] [place] [address] ProviderErika MD [address] [place] [address] Social History Tobacco Use Types Packs/Day Years Used Date Smoking Tobacco: Never Assessed Sex and Gender Information Value Date Recorded Sex Assigned at Not on file Legal Sex Male 5:03 PM CDT Gender Identity Not on file Sexual Orientation Not on file documented as of this encounter Miscellaneous Notes * Cerner Conversion Note - Historical ProviderMD - 11/18/2018 2:00 AM CDT Exhibit Artist Details Entered On: 11/18/2018 4:41 EDT Performed [...]
--- OUTSIDE RECORDS SUMMARY | 2025-06-14 13:25 | XMS_ITS | Encounter Summary ---
Author Organization [employer] ([place], [place], [place], [place]) Address [address] [place] [address] Care Team Providers Care Magnaflux Operator Name Role Phone Unavailable Primary Care Provider Unavailabl e Encounter Details Date Type Department Care Team (Late st Contact Info) Description 11/25/2018 Transcribed Document [facility] [place] Family Medicine [address] [place] [address] ProviderErika MD [address] [place] [address] Social History Tobacco Use Types [...] All Active Orders Reviewed : Yes Elissa Roadrte RN - 11/25/2018 16:38 EDT Electronically signed by Christina Saini Conversion Garage Construction Equipment Mechanic Cerner at 12/08/2022 12:37 PM CDT documented in this encounter Plan of Treatment Not on file documented as of this encounter Visit Diagnoses Not on filedocumented in this encounter
--- OUTSIDE RECORDS SUMMARY | 2025-06-14 13:25 | XMS_ITS | Encounter Summary ---
Author Organization [employer] ([place], [place], [place], [place]) Address [address] [place] [address] Care Team Providers Care Tank Cleaner Name Role Phone Unavailable Primary Care Provider Unavailabl e Encounter Details Date Type Department Care Team (Late st Contact Info) Description 11/18/2018 Transcribed Document [facility] [place] [address] [place] [address] ProviderErika MD [address] [place] [address] Social History Tobacco Use Types [...] Initial Visit : Yes Referred by : Bag End Sewer initiated Referral Reason Comment : Post-op visit Ministry Provided to : Patient, Family/Significant other Yarsanism Preference : Mandaeism MARCOS GASCA P - 11/18/2018 10:51 EDT [...] other supported, Relationship strengths identified Spiritual and Yarsanism : Prayer shared, Spiritual/Yarsanism support provided MARCOS GASCA P - 11/18/2018 10:51 EDT Electronically signed by Parveen, [facility] Conversion Focus Puller Cerner at 12/08/2022 12:34 PM CDT documented in this encounter Plan of Treatment Not on file documented as of this encounter Visit Diagnoses Not on filedocumented in this encounter
--- OUTSIDE RECORDS SUMMARY | 2025-06-14 13:25 | XMS_ITS | Encounter Summary ---
Author Organization [employer] ([place], [place], [place], [place]) Address [address] [place] [address] Care Team Providers Care Automation Controls Specialist Name Role Phone Unavailable Primary Care Provider Unavailabl e Encounter Details Date Type Department Care Team (Late st Contact Info) Description 11/25/2018 Transcribed Document [facility] [place] Family Medicine [address] [place] [address] ProviderErika MD [address] [place], [place] [id number] Social History Tobacco Use Types Packs/Day Years [...] 1940 Associated Diagnoses: CAD (coronary artery disease), [place] coronary artery; Thrombocytopenia; Coronary artery disease; HTN [...] left upper extremity swelling. Integumentary: Warm, Dry, [place], incision is C/D/I. Neurologic: Alert, left sided [...] CM has sent information to [facility] -Transfer to [facility] 11/24/18 -POD#8 -Awaiting transfer to [facility] -Awaiting response from [facility] 11/25/18 -left upper extremity venous doppler - doppler this am positive for LUE DVT - will start coumadin and heparin bridge -awaiting [facility] EF 55-60% per echo 11/16/18 DVT Prophylaxis: SCDs Diagnosis CAD (coronary artery disease), [place] coronary artery - Admitting, Medical. Thrombocytopenia - [...] Medical. Electronically signed by Christina Saini Conversion Parts Identification Technician Cerner at 12/08/2022 12:35 PM CDT documented in this encounter Plan of Treatment Not on file documented as of this encounter Visit Diagnoses Not on filedocumented in this encounter
--- OUTSIDE RECORDS SUMMARY | 2025-06-14 13:25 | XMS_ITS | Encounter Summary ---
Author Organization [employer] ([place], [place], [place], [place]) Address [address] [place] [address] Care Team Providers Care Sample Worker Name Role Phone Unavailable Primary Care Provider Unavailabl e Encounter Details Date Type Department Care Team (Late st Contact Info) Description 11/25/2018 Transcribed Document [facility] [place] [address] [place] [address] ProviderErika MD [address] [place] [address] Social History Tobacco Use Types [...] Tab, Oral, At Bedtime saliva substitutes, 1 Romeo, Buccal, Q2H, PRN Senokot, 17.2 mg= 2 Tab, Oral, BID warfarin, 5 mg= 1 Tab, Oral, Daily Zofran, 4 mg= 2 mL, IV Push, Q4H, PRN Electronically signed by Parveen, [facility] Conversion Aluminum Welder Cerner at 12/08/2022 12:38 PM CDT documented in this encounter Plan of Treatment Not on file documented as of this encounter Visit Diagnoses Not on filedocumented in this encounter
--- OUTSIDE RECORDS SUMMARY | 2025-06-14 13:25 | XMS_ITS | Clinical Summary ---
Author Organization [facility] Address [address] [place] [phone] Phone Care Team Providers Care Cashiers Bussers Food Runners Name Role Phone Svitlana Manley MD Primary [...] [place] PART A AND B Care Teams Cashiers Bussers Food Runners Relationship Specialty Start Date End Date Svitlana Manley MD [address] [place] [phone] PCP - General Family Medicine 04/10/16
--- OUTSIDE RECORDS SUMMARY | 2025-06-14 13:25 | XMS_ITS | Encounter Summary ---
Author Organization [employer] ([place], [place], [place], [place]) Address [address] [place] [address] Care Team Providers Care Solid Waste Technician Name Role Phone Unavailable Primary Care Provider Unavailabl e Encounter Details Date Type Department Care Team (Late st Contact Info) Description 11/18/2018 Transcribed Document [facility] [place] Family Medicine [address] [place] [address] ProviderErika MD [address] [place] [address] Social History Tobacco Use [...] on Osmolite 1.5 @ 50m/hr + 1 [id number] daily advancing toward goal of 60ml/hr + 1 [id number] daily. No METROLOGY MANAGER consult noted, discussed if any concern [...] midline incision; chest tube 370ml GI: LBM DISABILITY MANAGER (admit 11/16), hypoactive BS, +NGT Nutrition Support: Osmolite 1.5 @ 60ml/hr + 1 [id number] daily, water flush 10ml q1hr HT: 185cm (6'1) ADMIT WT: 79kg/174# Current Wt: 81.6kg (11/17), 82.4kg (11/18) BMI: 23 IBW: 79kg/100% EST NEEDS: 3273-1117 kcal (25-30kcal/kg), 95g pro (1.2g/kg) Bev Olvera [...] TF: Osmolite 1.5 @ 60ml/hr + 1 [id number] daily (provides 2040 kcal, 98g pro). FW per MD. goal: provide nutrition, meet est needs 2. As medically able, recommend swallow eval if appropriate; rec (cardiac) w/consistencies per METROLOGY MANAGER. RD will monitor need for supplement. goal: establish po intake 3. Obtain wt 2x weekly goal: no significant unintended changes high risk Nutrition Care Level : High Bev Olvera, Clinical Dietitian - 11/18/2018 11:31 EDT Electronically signed by Christina Saini Conversion Computer Help Desk Representative Cerner at 12/08/2022 12:30 PM CDT documented in this encounter Plan of Treatment Not on file documented as of this encounter Visit Diagnoses Not on filedocumented in this encounter
--- OUTSIDE RECORDS SUMMARY | 2025-06-14 13:25 | XMS_ITS | Clinical Summary ---
Author Organization [employer] ([place], [place], [place], [place]) Address [address] [place] [address] Care Team Providers Care Auditor Appraiser Name Role Phone Unavailable Primary Care [...]
--- OUTSIDE RECORDS SUMMARY | 2025-06-14 13:25 | XMS_ITS | Encounter Summary ---
Author Organization [employer] ([place], [place], [place], [place]) Address [address] [place] [address] Care Team Providers Care Waiter/Waitress Economy Class Name Role Phone Unavailable Primary Care Provider Unavailabl e Encounter Details Date Type Department Care Team (Late st Contact Info) Description 11/18/2018 Transcribed Document [facility] [place] Family Medicine [address] [place] [address] ProviderErika MD [address] [place] [address] Social History Tobacco Use Types [...]
--- OUTSIDE RECORDS SUMMARY | 2025-06-14 13:25 | XMS_ITS | Encounter Summary ---
Author Organization [employer] ([place], [place], [place], [place]) Address [address] [place] [address] Care Team Providers Care Human Resources Records Clerk Name Role Phone Unavailable Primary Care Provider Unavailabl e Encounter Details Date Type Department Care Team (Late st Contact Info) Description 12/01/2018 Transcribed Document [facility] [place] Family Medicine [address] [place] [address] ProviderErika MD [address] [place] [address] Social History Tobacco Use Types [...] contain harmful chemicals. FOR MORE INFORMATION ??? [place] [employer]: www.lung.org ??? [place] [employer]: www.cancer.org This information is not intended to replace advice given to you by your health care provider. Make sure you discuss any questions you have with your health care provider. Document Released: 09/17/2005 Document Revised: 12/01/2016 Document Reviewed: 01/30/2014 [employer] Interactive Patient Education ? 2017 [employer] How to Take Your Blood Pressure [...] 07/23/2009 Document Revised: 08/31/2015 Document Reviewed: 10/05/2014 [employer] Interactive Patient Education ? 2017 [employer] How to Take a Pulse Your [...] 02/14/2004 Document Revised: 02/27/2017 Document Reviewed: 01/13/2017 [employer] Interactive Patient Education ? 2017 [employer] Coronary Artery Bypass Grafting, Care After [...] 02/27/2006 Document Revised: 08/31/2015 Document Reviewed: 01/17/2014 [employer] Interactive Patient Education ? 2017 [employer] Bleeding Precautions When on Anticoagulant Therapy [...] can be dangerous for you. ??? Many qqxu-xeb-xbnjctd medicines for pain, colds, or stomach problems [...] provider. Document Released: 07/21/2016 Document Reviewed: 07/21/2016 [employer] Interactive Patient Education ? 2017 [employer] Atrial Fibrillation Introduction Atrial fibrillation is [...] Follow these instructions at home: ??? Take misd-wud-uwuabie and prescription medicines only as told by [...] 02/10/2014 [employer] Interactive Patient Education ? 2017 [employer] documented in this encounter Plan of Treatment Not on file documented as of this encounter Visit Diagnoses Not on filedocumented in this encounter
--- OUTSIDE RECORDS SUMMARY | 2025-06-14 13:26 | XMS_ITS | Encounter Summary ---
Author Organization [employer] ([place], [place], [place], [place]) Address [address] [place] [address] Care Team Providers Care Underground Supervisor Name Role Phone Unavailable Primary Care Provider Unavailabl e Encounter Details Date Type Department Care Team (Late st Contact Info) Description 11/23/2018 Transcribed Document [facility] [place] Family Medicine [address] [place] [address] ProviderErika MD [address] [place] [address] Social History Tobacco Use [...]
--- OUTSIDE RECORDS SUMMARY | 2025-06-14 13:26 | XMS_ITS | Encounter Summary ---
Author Organization [employer] ([place], [place], [place], [place]) Address [address] [place] [address] Care Team Providers Care Finish Patcher Name Role Phone Unavailable Primary Care Provider Unavailabl e Encounter Details Date Type Department Care Team (Late st Contact Info) Description 11/30/2018 Transcribed Document [facility] [place] Family Medicine [address] [place] [address] ProviderErika MD [address] [place], [...] Bed scale Routine Weight Entry Format : [place] Routine Weight, Pounds : 164 lb Routine Weight, Ounces : 1 oz Routine Weight Calculation : 74.57 kg Height Source : Measured Height Entry Format : [place] Height, Feet : 6 ft Height, Inches [...]
--- OUTSIDE RECORDS SUMMARY | 2025-06-14 13:26 | XMS_ITS | Encounter Summary ---
Author Organization [employer] ([place], [place], [place], [place]) Address [address] [place] [address] Care Team Providers Care Liner Installer Name Role Phone Unavailable Primary Care Provider Unavailabl e Encounter Details Date Type Department Care Team (Late st Contact Info) Description 11/24/2018 Transcribed Document [facility] [place] Family Medicine [address] [place] [address] ProviderErika MD [address] [place] [address] Social History Tobacco Use Types [...] Bed scale Routine Weight Entry Format : [place] Routine Weight, Pounds : 180 lb Routine Weight, Ounces : 8 oz Routine Weight Calculation : 82.05 kg Height Source : Measured Height Entry Format : [place] Height, Feet : 6 ft Height, Inches [...]
--- OUTSIDE RECORDS SUMMARY | 2025-06-14 13:26 | XMS_ITS | Encounter Summary ---
Author Organization [employer] ([place], [place], [place], [place]) Address [address] [place] [address] Care Team Providers Care Fiberglass Boat Maker Name Role Phone Unavailable Primary Care Provider Unavailabl e Encounter Details Date Type Department Care Team (Late st Contact Info) Description 11/23/2018 Transcribed Document [facility] [place] Family Medicine [address] [place] [address] ProviderErika MD [address] [place] [address] Social History Tobacco Use [...] Tab, Oral, At Bedtime saliva substitutes, 1 [place], Buccal, Q2H, PRN Senokot, 17.2 mg= 2 Tab, Oral, BID Zofran, 4 mg= 2 mL, IV Push, Q4H, PRN Electronically signed by Parveen, [facility] Conversion Optical Instrument Inspector Cerner at 12/08/2022 12:26 PM CDT documented in this encounter Plan of Treatment Not on file documented as of this encounter Visit Diagnoses Not on filedocumented in this encounter
--- OUTSIDE RECORDS SUMMARY | 2025-06-14 13:26 | XMS_ITS | Encounter Summary ---
Author Organization [employer] ([place], [place], [place], [place]) Address [address] [place] [address] Care Team Providers Care Referral Manager Name Role Phone Unavailable Primary Care Provider Unavailabl e Encounter Details Date Type Department Care Team (Late st Contact Info) Description 12/01/2018 Transcribed Document [facility] [place] [address] [place] [address] ProviderErika MD [address] [place] [address] Social History Tobacco Use [...]
--- OUTSIDE RECORDS SUMMARY | 2025-06-14 13:26 | XMS_ITS | Encounter Summary ---
Author Organization [employer] ([place], [place], [place], [place]) Address [address] [place] [address] Care Team Providers Care Health Program Manager Name Role Phone Unavailable Primary Care Provider Unavailabl e Encounter Details Date Type Department Care Team (Late st Contact Info) Description 11/30/2018 Transcribed Document [facility] [place] [address] [place] [address] ProviderErika MD [address] [place] [address] Social History Tobacco Use Types Packs/Day Years Used Date Smoking Tobacco: Never Assessed Sex and Gender Information Value Date Recorded Sex Assigned at Not on file Legal Sex Male 5:03 PM CDT Gender Identity Not on file Sexual Orientation Not on file documented as of this encounter Miscellaneous Notes * Cerner Conversion Note - Historical ProviderMD - 11/30/2018 2:00 AM CDT Polyethylene Bag Machine Operator Details Entered On: 11/30/2018 0:59 EDT Performed [...]
--- OUTSIDE RECORDS SUMMARY | 2025-06-14 13:26 | XMS_ITS | Encounter Summary ---
Author Organization [employer] ([place], [place], [place], [place]) Address [address] [place] [address] Care Team Providers Care Technical Publications Writer Name Role Phone Unavailable Primary Care Provider Unavailabl e Encounter Details Date Type Department Care Team (Late st Contact Info) Description 12/01/2018 Transcribed Document [facility] [place] Family Medicine [address] [place] [address] ProviderErika MD [address] [place] [address] Social History Tobacco Use Types [...]
--- OUTSIDE RECORDS SUMMARY | 2025-06-14 13:26 | XMS_ITS | Encounter Summary ---
Author Organization [employer] ([place], [place], [place], [place]) Address [address] [place] [address] Care Team Providers Care Student Services Coordinator Name Role Phone Unavailable Primary Care Provider Unavailabl e Encounter Details Date Type Department Care Team (Late st Contact Info) Description 11/23/2018 Transcribed Document [facility] [place] [place] Family [place] [address] [place] [address] ProviderErika MD [address] [place] [address] Social History Tobacco Use Types [...]
--- OUTSIDE RECORDS SUMMARY | 2025-06-14 13:26 | XMS_ITS | Encounter Summary ---
Author Organization [employer] ([place], [place], [place], [place]) Address [address] [place] [address] Care Team Providers Care Court Orderly Name Role Phone Unavailable Primary Care Provider Unavailabl e Encounter Details Date Type Department Care Team (Late st Contact Info) Description 11/23/2018 Transcribed Document [facility] [place] Family Medicine [address] [place] [address] ProviderErika MD [address] [place] [address] Social History Tobacco Use Types Packs/Day Years Used Date Smoking Tobacco: Never Assessed Sex and Gender Information Value Date Recorded Sex Assigned at Not on file Legal Sex Male 5:03 PM CDT Gender Identity Not on file Sexual Orientation Not on file documented as of this encounter Miscellaneous Notes * Cerner Conversion Note - Historical ProviderMD - 11/23/2018 1:36 PM CDT Intellectual Property Paralegal Details Entered On: 11/23/2018 16:44 EDT Performed [...]
--- OUTSIDE RECORDS SUMMARY | 2025-06-14 13:26 | XMS_ITS | Encounter Summary ---
Author Organization [employer] ([place], [place], [place], [place]) Address [address] [place] [address] Care Team Providers Care Payroll Accounting Clerk Name Role Phone Unavailable Primary Care Provider Unavailabl e Encounter Details Date Type Department Care Team (Late st Contact Info) Description 11/23/2018 Transcribed Document [facility] [place] Family Medicine [address] [place] [address] ProviderErika MD [address] [place] [address] Social History Tobacco Use Types [...]
--- OUTSIDE RECORDS SUMMARY | 2025-06-14 13:26 | XMS_ITS | Encounter Summary ---
Author Organization [employer] ([place], [place], [place], [place]) Address [address] [place] [address] Care Team Providers Care Electronics Mechanic Apprentice Name Role Phone Unavailable Primary Care Provider Unavailabl e Encounter Details Date Type Department Care Team (Late st Contact Info) Description 11/23/2018 Transcribed Document [facility] [place] [address] [place] [address] ProviderErika MD [address] [place], [place] [id number] Social History Tobacco Use Types Packs/Day Years [...] 1940 Associated Diagnoses: CAD (coronary artery disease), [place] coronary artery; Thrombocytopenia; Coronary artery disease; HTN [...] S1, S2, No edema. Integumentary: Warm, Dry, Luis M. Cintron, incision [...] of discharge- MELLISSA has sent information to [facility] -Transfer to 3 east EF 55-60% per echo 11/16/18 DVT Prophylaxis: SCDs Diagnosis CAD (coronary artery disease), [place] coronary artery - Admitting, Medical. Thrombocytopenia - [...]
--- OUTSIDE RECORDS SUMMARY | 2025-06-14 13:27 | XMS_ITS | Encounter Summary ---
Author Organization [employer] ([place], [place], [place], [place]) Address [address] [place] [address] Care Team Providers Care Employment Service Specialist Name Role Phone Unavailable Primary Care Provider Unavailabl e Encounter Details Date Type Department Care Team (Late st Contact Info) Description 11/24/2018 Transcribed Document [facility] [place] Family Medicine [address] [place] [address] ProviderErika MD [address] [place], [place] [id number] Social History Tobacco Use Types Packs/Day Years [...] 1940 Associated Diagnoses: CAD (coronary artery disease), [place] coronary artery; Thrombocytopenia; Coronary artery disease; HTN [...] S1, S2, No edema. Integumentary: Warm, Dry, [place], incision is C/D/I. Neurologic: Alert, left sided [...] of discharge- CM has sent information to [facility] -Transfer to [facility] 11/24/18 -POD#8 -Awaiting transfer to [facility] -Awaiting response from [facility] EF 55-60% per echo 11/16/18 DVT Prophylaxis: SCDs Diagnosis CAD (coronary artery disease), [place] coronary artery - Admitting, Medical. Thrombocytopenia - [...] - Discharge, Medical. Electronically signed by Interface, [facility] Conversion Squirt Machine Operator Cerner at 12/08/2022 12:10 PM CDT documented in this encounter Plan of Treatment Not on file documented as of this encounter Visit Diagnoses Not on filedocumented in this encounter
--- OUTSIDE RECORDS SUMMARY | 2025-06-14 13:27 | XMS_ITS | Encounter Summary ---
Author Organization [employer] ([place], [place], [place], [place]) Address [address] [place] [address] Care Team Providers Care Machine Preservative Filler Name Role Phone Unavailable Primary Care Provider Unavailabl e Encounter Details Date Type Department Care Team (Late st Contact Info) Description 11/24/2018 Transcribed Document [facility] [place] Family Medicine [address] [place] [address] ProviderErika MD [address] [place] [address] Social History Tobacco Use Types [...] EDT Electronically signed by Christina Saini Conversion Water Pumping Station Engineer Felipe at 12/08/2022 12:12 PM CDT documented in this encounter Plan of Treatment Not on file documented as of this encounter Visit Diagnoses Not on filedocumented in this encounter
--- OUTSIDE RECORDS SUMMARY | 2025-06-14 13:27 | XMS_ITS | Encounter Summary ---
Author Organization [employer] ([place], [place], [place], [place]) Address [address] [place] [address] Care Team Providers Care Driller'S Assistant Name Role Phone Unavailable Primary Care Provider Unavailabl e Encounter Details Date Type Department Care Team (Late st Contact Info) Description 11/28/2018 Transcribed Document [facility] [place] [address] [place] [address] ProviderErika MD [address] [place] [address] Social History Tobacco Use Types [...] access. 20R shoulder x1 attempt using vein gas mask assembler. Rapid Response Admission Diagnosis : Atherosclerotic heart disease of [place] coronary artery without angina pectoris Atherosclerotic heart disease of [place] coronary artery without angina pectoris Cerebral infarction, [...] change in location/level of care Rapid Response Driller'S Assistant #1 : MICHAEL WALLER, RN MICHAEL WALLER, RN - 11/28/2018 13:58 EDT Electronically signed by Parveen [facility] Conversion Box Toe Stitcher Cerner at 12/08/2022 12:28 PM CDT documented in this encounter Plan of Treatment Not on file documented as of this encounter Visit Diagnoses Not on filedocumented in this encounter
--- OUTSIDE RECORDS SUMMARY | 2025-06-14 13:27 | XMS_ITS | Encounter Summary ---
Author Organization [employer] ([place], [place], [place], [place]) Address [address] [place] [address] Care Team Providers Care Airport Manager Name Role Phone Unavailable Primary Care Provider Unavailabl e Encounter Details Date Type Department Care Team (Late st Contact Info) Description 11/20/2018 Transcribed Document [facility] [place] Family Medicine [address] [place] [address] ProviderErika MD [address] [place] [address] Social History Tobacco Use Types [...] Admission Diagnosis : Atherosclerotic heart disease of [place] coronary artery without angina pectoris Atherosclerotic heart disease of [place] coronary artery without angina pectoris Essential (primary) [...] change in location/level of care Rapid Response Airport Manager #1 : MICHAEL WALLER, RN MICHAEL WALLER, RN - 11/20/2018 13:07 EDT Electronically signed by Parveen [facility] Conversion Bar Finish Operator Cerner at 12/08/2022 12:16 PM CDT documented in this encounter Plan of Treatment Not on file documented as of this encounter Visit Diagnoses Not on filedocumented in this encounter
--- OUTSIDE RECORDS SUMMARY | 2025-06-14 13:27 | XMS_ITS | Referral Summary ---
Author Organization [employer] ([place], [place], [place], [place]) Address [address] [place] [address] Care Team Providers Care Hotel Reservation Agent Name Role Phone Unavailable Primary Care [...]
--- OUTSIDE RECORDS SUMMARY | 2025-06-14 13:27 | XMS_ITS | Encounter Summary ---
Author Organization [employer] ([place], [place], [place], [place]) Address [address] [place] [address] Care Team Providers Care Sample Collector Name Role Phone Unavailable Primary Care Provider Unavailabl e Encounter Details Date Type Department Care Team (Late st Contact Info) Description 12/01/2018 Transcribed Document [facility] [place] Family Medicine [address] [place] [address] ProviderErika MD [address] [place] [address] Social History Tobacco Use Types Packs/Day Years Used Date Smoking Tobacco: Never Assessed Sex and Gender Information Value Date Recorded Sex Assigned at Not on file Legal Sex Male 5:03 PM CDT Gender Identity Not on file Sexual Orientation Not on file documented as of this encounter Miscellaneous Notes * Cerner Conversion Note - Historical ProviderMD - 12/01/2018 2:00 AM CDT Head Baker Details Entered On: 12/01/2018 0:23 EDT Performed [...]
--- OUTSIDE RECORDS SUMMARY | 2025-06-14 13:27 | XMS_ITS | Encounter Summary ---
Author Organization [employer] ([place], [place], [place], [place]) Address [address] [place] [address] Care Team Providers Care Physical Therapist Clinic Director Name Role Phone Unavailable Primary Care Provider Unavailabl e Encounter Details Date Type Department Care Team (Late st Contact Info) Description 11/28/2018 Transcribed Document [facility] [place] Family Medicine [address] [place] [address] ProviderErika MD [address] [place] [address] Social History Tobacco Use [...] : Transfer to critical care Rapid Response Physical Therapist Clinic Director #1 : MICHAEL WALLER RN Rapid Response Physical Therapist Clinic Director #2 : DIA BINGHAM RN Rapid Response Physical Therapist Clinic Director #3 : SRINIVAS LEAL RN [place], [place], [...] Team Initiation Reason Details : [address]E 333. COLLISION MECHANIC notified of pt with decrease in BP despite treatment. MD notified. Bolus given and pt labwork obtained. 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
--- OUTSIDE RECORDS SUMMARY | 2025-06-14 13:27 | XMS_ITS | Encounter Summary ---
Author Organization [employer] ([place], [place], [place], [place]) Address [address] [place] [address] Care Team Providers Care Crabbing Machine Operator Name Role Phone Unavailable Primary Care Provider Unavailabl e Encounter Details Date Type Department Care Team (Late st Contact Info) Description 11/24/2018 Transcribed Document [facility] [place] Family Medicine [address] [place] [address] ProviderErika MD [address] [place] [address] Social History Tobacco Use Types [...]
--- OUTSIDE RECORDS SUMMARY | 2025-06-14 13:27 | XMS_ITS | Encounter Summary ---
Author Organization [employer] ([place], [place], [place], [place]) Address [address] [place] [address] Care Team Providers Care Senior Biostatistician/Group Leader Name Role Phone Unavailable Primary Care Provider Unavailabl e Encounter Details Date Type Department Care Team (Late st Contact Info) Description 11/16/2018 Transcribed Document [facility] [place] Family Medicine [address] [place] [address] ProviderErika MD [address] [place], [...]
--- OUTSIDE RECORDS SUMMARY | 2025-06-14 13:27 | XMS_ITS | Encounter Summary ---
Author Organization [employer] ([place], [place], [place], [place]) Address [address] [place] [address] Care Team Providers Care Poultry Boner Name Role Phone Unavailable Primary Care Provider Unavailabl e Encounter Details Date Type Department Care Team (Late st Contact Info) Description 12/01/2018 Transcribed Document [facility] [place] [address] [place] [address] ProviderErika MD [address] [place] [address] Social History Tobacco Use Types [...] NAIN JARRETT RN - 12/01/2018 13:35 EDT Electronically signed by Christina Saini Conversion Air Conditioning Installer Supervisor Cerner at 12/08/2022 12:31 PM CDT documented in this encounter Plan of Treatment Not on file documented as of this encounter Visit Diagnoses Not on filedocumented in this encounter
--- OUTSIDE RECORDS SUMMARY | 2025-06-14 13:27 | XMS_ITS | Encounter Summary ---
Author Organization [employer] ([place], [place], [place], [place]) Address [address] [place] [address] Care Team Providers Care Dental Technician Metal Name Role Phone Unavailable Primary Care Provider Unavailabl e Encounter Details Date Type Department Care Team (Late st Contact Info) Description 11/24/2018 Transcribed Document [facility] [place] Family Medicine [address] [place] [address] ProviderErika MD [address] [place] [address] Social History Tobacco Use Types [...] Lizz Pedro Rn - 11/24/2018 16:47 EDT Electronically signed by Christina Saini Conversion Sed Special Education Teacher Cerner at 12/08/2022 12:11 PM CDT documented in this encounter Plan of Treatment Not on file documented as of this encounter Visit Diagnoses Not on filedocumented in this encounter
--- OUTSIDE RECORDS SUMMARY | 2025-06-14 13:27 | XMS_ITS | Encounter Summary ---
Author Organization [employer] ([place], [place], [place], [place]) Address [address] [place] [address] Care Team Providers Care Bosom Presser Name Role Phone Unavailable Primary Care Provider Unavailabl e Encounter Details Date Type Department Care Team (Late st Contact Info) Description 11/24/2018 Transcribed Document [facility] [place] [address] [place] [address] ProviderErika MD [address] [place] [address] Social History Tobacco Use Types [...] On: 11/24/2018 13:21 EDT by ODALYS FAULKNER Rn-Credit Union ManagerAir Quality Manager Note Care Management Note : 11/24/18 Andra from [facility] called to let me know they started a precert on this pt. CF Care Management Note Report : ODALYS FAULKNER Rn-Credit Union Manager - 11/22/18 13:56:32 11/22/18 Pt has had a cva. Spoke to his Connie and son Sumeet at the bedside. Pt is lfacid on the left side. Discussed the need for STR and they decided on [facility]. Sent pt info via [employer] to [facility]. CF Documentation Status Complete : Yes ODALYS FAULKNER Rn-Credit Union Manager - 11/24/2018 13:21 EDT Electronically signed by Parveen [facility] Conversion Teradata Architect Cerjuju at 12/08/2022 12:31 PM CDT documented in this encounter Plan of Treatment Not on file documented as of this encounter Visit Diagnoses Not on filedocumented in this encounter
--- OUTSIDE RECORDS SUMMARY | 2025-06-14 13:27 | XMS_ITS | Encounter Summary ---
Author Organization [employer] ([place], [place], [place], [place]) Address [address] [place] [address] Care Team Providers Care Team Leader/Research Psychologist Name Role Phone Unavailable Primary Care Provider Unavailabl e Encounter Details Date Type Department Care Team (Late st Contact Info) Description 11/24/2018 Transcribed Document [facility] [place] [address] [place] [address] ProviderErika MD [address] [place] [address] Social History Tobacco Use Types Packs/Day Years Used Date Smoking Tobacco: Never Assessed Sex and Gender Information Value Date Recorded Sex Assigned at Not on file Legal Sex Male 5:03 PM CDT Gender Identity Not on file Sexual Orientation Not on file documented as of this encounter Miscellaneous Notes * Cerner Conversion Note - Historical ProviderMD - 11/24/2018 2:00 AM CDT Abnormal Psychology Teacher Details Entered On: 11/24/2018 3:36 EDT Performed [...]
--- OUTSIDE RECORDS SUMMARY | 2025-06-14 13:27 | XMS_ITS | Encounter Summary ---
Author Organization [employer] ([place], [place], [place], [place]) Address [address] [place] [address] Care Team Providers Care Cut Out Press Operator Name Role Phone Unavailable Primary Care Provider Unavailabl e Encounter Details Date Type Department Care Team (Late st Contact Info) Description 12/01/2018 Transcribed Document [facility] [place] Family Medicine [address] [place] [address] ProviderErika MD [address] [place] [address] Social History Tobacco Use Types [...] Jose MD - 12/01/2018 3:00 PM CDT [facility] [place] [address] VILLASENOR DOTTIE Ladan :1940 Visit Time:11/16/2018 Your Visit Summary Your Care Team Admitting Physician - JULIO CESAR CARVALHO MD-CAT Attending Physician - JULIO CESAR CARVALHO MD-YADIRA Primary Care Physician - DEMETRICE ARMIJO NP-FAM Referring Physician - DEMETRICE ARMIJO NP-FAM Your Diagnosis Acute blood loss anemia Aortic insufficiency, Aortic insufficiency CAD (coronary artery disease), ione coronary artery, Coronary artery disease GI bleed [...] do next Instructions From Your Care Team [facility]-Stroke Unit RN report #[phone] DC Summary #[phone] You may shower. Make sure your back [...] IF you have a fever greater than [address], call the surgeon. DO NOT drive for [...] Where: [address] [place] [address]- Business (1) Follow Up with JULIO CESAR CARVALHO When 12/15/2018 12:15 PM EDT Where: [address] [place] [address] Business (1) Follow Up with DEMETRICE ARMIJO When Within 1 week Comments When you are discharged from [facility] please call to make a 1 week hospital follow-up appointment. Where: [address] [place] [address]- Follow Up with JOHN BOWEN When Within 6 weeks Comments Patient should call for a follow up appointment with [facility] Neurology. Where: [address] [place] [address]- Business (1) Medications What How [...] contain harmful chemicals. FOR MORE INFORMATION ??? [place] [employer]: www.lung.org ??? [employer]: www.cancer.org This information is not intended to replace advice given to you by your health care provider. Make sure you discuss any questions you have with your health care provider. Document Released: 09/17/2005 Document Revised: 12/01/2016 Document Reviewed: 01/30/2014 [employer] Interactive Patient Education ?? 2017 [employer]. How to Take Your Blood Pressure HOW [...] 02/14/2004 Document Revised: 02/27/2017 Document Reviewed: 01/13/2017 [employer] Patient Education ?? 2017 [employer] Coronary Artery Bypass Grafting, Care After [...] 02/27/2006 Document Revised: 08/31/2015 Document Reviewed: 01/17/2014 [employer] Interactive Patient Education ?? 2017 [employer] Bleeding Precautions When on Anticoagulant Therapy [...] can be dangerous for you. ??? Many fvft-waz-igxrble medicines for pain, colds, or stomach problems [...] provider. Document Released: 07/21/2016 Document Reviewed: 07/21/2016 [employer] Interactive Patient Education ?? 2017 [employer] Atrial Fibrillation Introduction Atrial fibrillation is [...] Follow these instructions at home: ??? Take imos-xtm-xcjmglg and prescription medicines only as told by [...] 09/17/2005 Document Revised: 01/15/2017 Document Reviewed: 02/10/2014 [employer] Interactive Patient Education ?? 2017 [employer]. misoprostol (reji ramos) [facility] What is the most important [...] disease; or ?? if you are dehydrated. [facility] category X. Misoprostol can cause defects, [...] may report side effects to FDA at 8-803-IOJ-9141. What other drugs will affect misoprostol? Other drugs may interact with misoprostol, including prescription and pifw-zsu-xvbhvzl medicines, vitamins, and herbal products. Tell each [...] to ensure that the information provided by [employer] ('[employer]') is accurate, up-to-date, and complete, but no guarantee is made to that effect. Drug information contained herein may be time sensitive. [employer] information has been compiled for use by healthcare practitioners and consumers in the [place] and therefore [employer] does not warrant that uses outside of the [place] are appropriate, unless specifically indicated otherwise. [employer] drug information does not endorse drugs, diagnose patients or recommend therapy. [employer] drug information is an informational resource designed [...] effective or appropriate for any given patient. [facility] does not assume any responsibility for any aspect of healthcare administered with the aid of information [facility] provides. The information contained herein is not intended to cover all possible uses, directions, precautions, warnings, drug interactions, allergic reactions, or adverse effects. If you have questions about the drugs you are taking, check with your doctor, nurse or pharmacist. Copyright 4770-4620 [facility]. Version: 8.01. Revision Date: 03/02/2014.sucralfate (oral) (angelica [...] may report side effects to FDA at 2-730-HNN-3045. What other drugs will affect sucralfate? Sucralfate can make it harder for your body to absorb other medications you take by mouth. Avoid taking any other medications within 2 hours before or after you take sucralfate. Other drugs may interact with sucralfate, including prescription and uhty-ejy-ucmewkk medicines, vitamins, and herbal products. Tell each [...] to ensure that the information provided by [employer] ('[employer]') is accurate, up-to-date, and complete, but no guarantee is made to that effect. Drug information contained herein may be time sensitive. [employer] information has been compiled for use by healthcare practitioners and consumers in the [place] and therefore [employer] does not warrant that uses outside of the [place] are appropriate, unless specifically indicated otherwise. [employer] drug information does not endorse drugs, diagnose patients or recommend therapy. [employer] drug information is an informational resource designed [...] effective or appropriate for any given patient. [employer] does not assume any responsibility for any aspect of healthcare administered with the aid of information [employer] provides. The information contained herein is not intended to cover all possible uses, directions, precautions, warnings, drug interactions, allergic reactions, or adverse effects. If you have questions about the drugs you are taking, check with your doctor, nurse or pharmacist. Copyright 4009-7815 [employer]. Version: 8.01. Revision Date: 01/03/2013.sucralfate (oral) (angelica [...] may report side effects to FDA at 2-455-XWO-1835. What other drugs will affect sucralfate? Sucralfate can make it harder for your body to absorb other medications you take by mouth. Avoid taking any other medications within 2 hours before or after you take sucralfate. Other drugs may interact with sucralfate, including prescription and otrc-gpl-gmdozih medicines, vitamins, and herbal products. Tell each [...] to ensure that the information provided by [employer] ('[employer]') is accurate, up-to-date, and complete, but no guarantee is made to that effect. Drug information contained herein may be time sensitive. [employer] information has been compiled for use by healthcare practitioners and consumers in the [place] and therefore [employer] does not warrant that uses outside of the [place] are appropriate, unless specifically indicated otherwise. [employer] drug information does not endorse drugs, diagnose patients or recommend therapy. [employer] drug information is an informational resource designed [...] effective or appropriate for any given patient. [facility] does not assume any responsibility for any aspect of healthcare administered with the aid of information [facility] provides. The information contained herein is not intended to cover all possible uses, directions, precautions, warnings, drug interactions, allergic reactions, or adverse effects. If you have questions about the drugs you are taking, check with your doctor, nurse or pharmacist. Copyright 3577-1011 [employer]. Version: 8.01. Revision Date: 01/03/2013. Emergency Awareness [...] Assistance with quitting is available by contacting 6-474-QCPR-NOW. This is a free resource providing counseling, [...]
--- OUTSIDE RECORDS SUMMARY | 2025-06-14 13:27 | XMS_ITS | Encounter Summary ---
Author Organization [employer] ([place], [place], [place], [place]) Address [address] [place] [address] Care Team Providers Care Incident Manager Name Role Phone Unavailable Primary Care Provider Unavailabl e Encounter Details Date Type Department Care Team (Late st Contact Info) Description 12/01/2018 Transcribed Document [facility] [place] [address] [place] [address] ProviderErika MD [address] [place] [address] Social History Tobacco Use [...] KISHA BROWER, PT - 12/01/2018 18:30 EDT Skilled Nursing Goals Mobility/Bed Mobility LTG [...] EDT Electronically signed by Christina Saini Conversion Remote Sensing Research Scientist Cerner at 12/08/2022 12:38 PM CDT documented in this encounter Plan of Treatment Not on file documented as of this encounter Visit Diagnoses Not on filedocumented in this encounter
--- OUTSIDE RECORDS SUMMARY | 2025-06-14 13:27 | XMS_ITS | Encounter Summary ---
Author Organization [employer] ([place], [place], [place], [place]) Address [address] [place] [address] Care Team Providers Care Chart Snatcher Name Role Phone Unavailable Primary Care Provider Unavailabl e Encounter Details Date Type Department Care Team (Late st Contact Info) Description 12/01/2018 Transcribed Document [facility] [place] [address] [place] [address] ProviderErika MD [address] [place] [address] Social History Tobacco Use Types [...] and arrangements, chart reviewed, received word from [facility] that bed is available for patient today, on their stroke unit. Patient to be transported via [facility], p/u set for 3pm. RN report to be called to [phone] and discharge summary to be faxed to [phone]. Pt, RN and family aware and in agreement with plan. ANGELA NAIR Social Worker - 12/01/2018 11:35 EDT Care Management Note Report : SUZANNA HAINES Social Worker - 11/30/18 15:30:18 Covering today for D/c planning, pt back on 3E room 330. Discussed w/ Carmen from [facility] who is still following pt. She has submitted pt info to MD for approval. Pt had EGD 11/29 which revealed duodenal ulcer w/ clot but no bleeding, no intervention needed, Off heparin gtt, watching pt's INR and H & H. Speech signed off today, pt is cleared for thins. Met w/ pt and family and informed them of [facility] situation. Also discussed outpt Cardiac Rehab. They prefer to go to [facility]. Phoned them and left msg, sent pt info to them. CM will cont to follow. ANGELA NAIR Heading Up Machine Operator - 11/26/18 11:20:05 Continue to follow for discharge needs and arrangements, chart reviewed, admission day 10, transfer from [facility], on room air, WBC=11.2, INR=1.1, PTT=55.8, on IV Heparin gtt due to DVT in left arm, MBS completed today now on regular cardiac diet with thin liquids, PT/OT following (not seen on 11/25/18) followed up with [facility] today regarding possible admission - plan is to submit for approval today after being seen by therapy. Awaiting ANGELA NAIR Heading Up Machine Operator - 11/26/18 11:24:04 Continue to follow for discharge needs and arrangements, chart reviewed, admission day 10, transfer from [facility], on room air, WBC=11.2, INR=1.1, PTT=55.8, on IV Heparin gtt due to DVT in left arm, MBS completed today now on regular cardiac diet with thin liquids, PT/OT following (not seen on 11/25/18) followed up with [facility] today regarding possible admission - plan is to submit for approval today after being seen by therapy, for their MD approval. Once accepting MD in place, bed in place and patient is medically stable will be able to transfer due to patient not requiring a insurance prior auth. CM will continue to follow. ODALYS FAULKNER, Rn-First Aid Instructor - 11/24/18 13:22:19 11/24/18 Andra from [facility] called to let me know they started a precert on this pt. CF ODALYS FAULKNER Rn-First Aid Instructor - 11/22/18 13:56:32 11/22/18 Pt has had a cva. Spoke to his Connie and son Sumeet at the bedside. Pt is lfacid on the left side. Discussed the need for STR and they decided on [facility]. Sent pt info via [employer] to [facility]. CF Documentation Status Complete : Yes ANGELA NAIR Social Worker - 12/01/2018 11:24 EDT Discharge Planning Details Home Caregiver Name/Relationship : Connie King [phone] spouse Discharge Placement Needs : Rehabilitation unit/facility [...] Yes Patient/Family Notified : Connie King Spouse [phone] ANGELA NAIR Social Worker - 12/01/2018 11:35 EDT Final Discharge Disposition Note-CM Discharge To Care Management : IRF -Inpatient Rehabilitation Facility-62 Name of Receiving Facility/Provider-CM : [facility] Stroke unit ANGELA NAIR Social Worker - 12/01/2018 11:35 EDT documented in this encounter Plan of Treatment Not on file documented as of this encounter Visit Diagnoses Not on filedocumented in this encounter
--- OUTSIDE RECORDS SUMMARY | 2025-06-14 13:27 | XMS_ITS | Encounter Summary ---
Author Organization [employer] ([place], [place], [place], [place]) Address [address] [place] [address] Care Team Providers Care Paid Search Specialist Name Role Phone Unavailable Primary Care Provider Unavailabl e Encounter Details Date Type Department Care Team (Late st Contact Info) Description 12/01/2018 Transcribed Document [facility] [place] [address] [place] [address] ProviderErika MD [address] [place], [place] [id number] Social History Tobacco Use Types Packs/Day Years [...] 1940 Associated Diagnoses: CAD (coronary artery disease), nondalton coronary artery; Thrombocytopenia; Coronary artery disease; HTN [...] complaints. 11/30/18: No complaints, transferred back to [facility] yesterday 12/01/18: Up to chair today, hopefully to [facility] today Review of Systems Constitutional: [...] Musculoskeletal: left arm swelling. Integumentary: Warm, Dry, [place], incision is C/D/I. Neurologic: Alert, left sided [...] (Current Encounter/Past 24 Hours) PT 14.6 Second(s) [place] 12/01/2018 06:53 INR 1.4 [place] 12/01/2018 06:53 . Impression and Plan Plan: [...] information to [facility] -Transfer to [facility] 11/24/18 -POD#8 -Awaiting transfer to [facility] -Awaiting response from [facility] 11/25/18 [...] blood has been set up. -Transferred to [facility] 11/29/18: -POD#13 -Upper endoscopy showed duodenal [...] D/C due to GI bleed. -Transfer to [facility] 11/30/18 POD # 14 EGD yesterday - duodenal ulceration with clot, no active bleeding and no intervention performed INR trending down, off coumadin and heparin Speech signed off yesterday - speech and cognition back to baseline Watch INR and H&H [facility] upon discharge 12/01/18 POD # 15 Bed available at [facility] today\.brTH stable, INR 1.4 EF 55-60% per echo 11/16/18 DVT Prophylaxis: SCDs Diagnosis CAD (coronary artery disease), nondalton coronary artery - Admitting, Medical. Thrombocytopenia - [...] by Parveen [facility] Conversion Rooming House Inspector Cerner at 12/08/2022 12:20 PM CDT documented in this encounter Plan of Treatment Not on file documented as of this encounter Visit Diagnoses Not on filedocumented in this encounter
--- OUTSIDE RECORDS SUMMARY | 2025-06-14 13:27 | XMS_ITS | Encounter Summary ---
Author Organization [employer] ([place], [place], [place], [place]) Address [address] [place] [address] Care Team Providers Care Hanger Name Role Phone Unavailable Primary Care Provider Unavailabl e Encounter Details Date Type Department Care Team (Late st Contact Info) Description 11/16/2018 Transcribed Document [facility] [place] [address] [place] [address] ProviderErika MD [address] [place] [address] Social History Tobacco Use Types Packs/Day Years Used Date Smoking Tobacco: Never Assessed Sex and Gender Information Value Date Recorded Sex Assigned at Not on file Legal Sex Male 5:03 PM CDT Gender Identity Not on file Sexual Orientation Not on file documented as of this encounter Miscellaneous Notes * Cerner Conversion Note - Erika ProviderMD - 11/16/2018 8:20 AM CDT [facility] Main OR IntraOp Summary Primary Physician: JULIO CESAR CARVALHO MD-CAT Finalized Date/Time: 11/17/18 10:03:54 Pt. Name: DOTTIE VILLASENOR D.O.B./Sex: 1940 Male Med Rec #: [id number] Physician: JULIO CESAR CARVALHO MD-CAT Financial #: [id number] Pt. Type: I Room/Bed: [facility] Admit/Disch: 11/16/18 06:45:00 - Institution: [facility] IntraOp Case Attendance Entry 1 Entry 2 Entry 3 Case Attendee JULIO CESAR CARVALHO MD-CAT ALTIZER, LISA E, RN Alton Gamble, online retailer Role Performed Surgeon/Proceduralist, Milk Tester, First Radio Script Writer First Time In 11/16/18 07:06:00 11/16/18 07:06:00 [...] CAROLYN, RN Role Performed Scrub, First Anesthesiologist Milk Tester, Second Time In 11/16/18 07:06:00 11/16/18 07:06:00 [...] [place] Pref Card Builder Role Performed Physician claims assistant Physician claims assistant Milk Tester, Second Time In 11/16/18 07:06:00 11/16/18 09:00:00 [...] Attendee Colette Alexander, LISETH Dimas, Alton Gamble, online retailer Pref Card Builder Radio Script Writer Role Performed Scrub, First Radio Script Writer Radio Script Writer Time In 11/16/18 10:32:00 11/16/18 11:05:00 11/16/18 [...] 12:25:17 Entry 13 Case Attendee LISETH ROE, Radio Script Writer Role Performed Radio Script Writer Time In 11/16/18 12:13:00 Time Out 11/16/18 12:30:00 Procedure Aortic Aneurysm Ascending Repair, CABG w Aortic Valve, Transesophageal Echocardiogram Other Attendee Superficial Wound Closed By: Last Modified By: RADHA VALENCIA, TONJA 11/16/18 12:40:56 [facility] IntraOp Case Attendance Audit 11/16/18 12:40:56 Coal Wheeler: ALTIZEL Modifier: ALTIZEL 1 <+> Time Out [...] w Aortic Valve, Transesophageal Echocardiogram 11/16/18 12:25:17 Coal Wheeler: ALTIZEL Modifier: ALTIZEL 12 <+> Time Out 12 <*> Procedure Aortic Aneurysm Ascending Repair, CABG w Aortic Valve <+> 13 Case Attendee <+> 13 Role Performed <+> 13 Time In <+> 13 Procedure 11/16/18 11:17:39 Coal Wheeler: ALTIZEL Modifier: ALTIZEL <+> 12 Case Attendee <+> 12 Role Performed <+> 12 Time In <+> 12 Procedure 11/16/18 11:17:17 Coal Wheeler: ALTIZEL Modifier: ALTIZEL 3 <+> Time Out 3 <*> Procedure Transesophageal Echocardiogram <+> 11 Case Attendee <+> 11 Role Performed <+> 11 Time In <+> 11 Time Out <+> 11 Procedure <+> 11 Other Attendee 11/16/18 10:47:10 Coal Wheeler: ALTIZEL Modifier: ALTIZEL <+> 10 Case Attendee <+> 10 Role Performed <+> 10 Time In <+> 10 Time Out <+> 10 Procedure <+> 10 Other Attendee 11/16/18 09:58:31 Coal Wheeler: ALTIZEL Modifier: ALTIZEL <+> 1 Procedure <+> 2 Procedure <+> 3 Procedure <+> 4 Procedure <+> 5 Procedure <+> 6 Procedure 7 <*> Procedure Aortic Aneurysm Ascending Repair, CABG w Aortic Valve 8 <*> Procedure Aortic Aneurysm Ascending Repair, CABG w Aortic Valve 9 <*> Procedure Aortic Aneurysm Ascending Repair, CABG w Aortic Valve 11/16/18 09:50:06 Coal Wheeler: ALTIZEL Modifier: ALTIZEL 9 <+> Time Out 9 <*> Procedure Aortic Aneurysm Ascending Repair, CABG w Aortic Valve 11/16/18 09:39:14 Coal Wheeler: ALTIZEL Modifier: ALTIZEL <+> 9 Case Attendee <+> 9 Role Performed <+> 9 Time In <+> 9 Procedure <+> 9 Other Attendee 11/16/18 09:28:12 Coal Wheeler: ALTIZEL Modifier: ALTIZEL <+> 8 Case Attendee <+> 8 Role Performed <+> 8 Time In <+> 8 Procedure 11/16/18 08:24:20 Coal Wheeler: ALTIZEL Modifier: ALTIZEL 7 <+> Time Out 7 <*> Procedure Aortic Aneurysm Ascending Repair, CABG w Aortic Valve 11/16/18 08:21:45 Coal Wheeler: ALTIZEL Modifier: ALTIZEL <+> 6 Time Out 11/16/18 08:10:59 Coal Wheeler: ALTIZEL Modifier: ALTIZEL 6 <*> Time In 11/16/18 07:00:00 <+> 7 Case Attendee <+> 7 Role Performed <+> 7 Time In <+> 7 Procedure 11/16/18 07:19:51 Coal Wheeler: ALTIZEL Modifier: ALTIZEL <+> 2 Time In <+> 3 Time In <+> 4 Time In <+> 5 Time In 11/16/18 07:19:37 Coal Wheeler: ALTIZEL Modifier: ALTIZEL <+> 1 Time In <+> 2 Case Attendee <+> 2 Role Performed <+> 3 Case Attendee <+> 3 Role Performed <+> 4 Case Attendee <+> 4 Role Performed <+> 5 Case Attendee <+> 5 Role Performed <+> 6 Case Attendee <+> 6 Role Performed <+> 6 Time In [facility] IntraOp Case Times Entry 1 Patient In Room Time 11/16/18 07:06:00 Out Room Time 11/16/18 12:30:00 Anesthesia Start Time 11/16/18 07:06:00 Stop Time 11/16/18 12:30:00 Anesthesia Ready 11/16/18 07:06:00 Surgery / Procedure Times Start Time 11/16/18 08:20:00 Stop Time 11/16/18 12:22:00 Last Modified By: RADHA VALENCIA RN 11/16/18 07:17:32 [facility] IntraOp Case Times Audit 11/16/18 12:30:30 Coal Wheeler: ALTIZEL Modifier: ALTIZEL <+> 1 Out Room Time <+> 1 Stop Time <+> 1 Stop Time 11/16/18 08:21:57 Coal Wheeler: ALTIZEL Modifier: ALTIZEL <+> 1 Start Time [facility] IntraOp Cautery Entry 1 ESU Identification Cautery Type Monopolar ESU ID Number [id number] ID Type Hospital Number Cautery Settings Cut [...] Modified By: RADHA VALENCIA RN 11/16/18 08:42:12 [facility] IntraOp Communication Entry 1 Entry 2 [...] RN 11/16/18 11:53:58 11/16/18 12:13:00 11/16/18 12:13:00 [facility] IntraOp Communication Audit 11/16/18 12:13:00 Coal Wheeler: ALTIZEL Modifier: ALTIZEL <+> 8 Communication By <+> 8 Date and Time <+> 8 Communication To <+> 9 Communication By <+> 9 Date and Time <+> 9 Communication To <+> 9 Comment 11/16/18 11:53:58 Coal Wheeler: ALTIZEL Modifier: ALTIZEL <+> 7 Communication By <+> 7 Date and Time <+> 7 Communication To <+> 7 Comment 11/16/18 11:31:42 Coal Wheeler: ALTIZEL Modifier: ALTIZEL <+> 6 Communication By <+> 6 Date and Time <+> 6 Communication To 11/16/18 10:22:56 Coal Wheeler: ALTIZEL Modifier: ALTIZEL <+> 5 Communication By <+> 5 Date and Time <+> 5 Communication To 11/16/18 09:10:41 Coal Wheeler: ALTIZEL Modifier: ALTIZEL <+> 3 Communication By <+> 3 Date and Time <+> 3 Communication To <+> 4 Communication By <+> 4 Date and Time <+> 4 Communication To <+> 4 Comment [facility] IntraOp Counts Verification Entry 1 Entry [...] LISA E, RN 11/16/18 07:20:29 11/16/18 11:54:29 [facility] IntraOp Counts Verification Audit 11/16/18 11:54:29 Coal Wheeler: ALTIZEL Modifier: ALTIZEL <+> 2 Procedure <+> 2 Count Type <+> 2 Counts Verification Sequence <+> 2 Count Results <+> 2 Count Performed By (Scrub) <+> 2 Count Performed By (RN) 11/16/18 09:58:33 Coal Wheeler: ALTIZEL Modifier: ALTIZEL 1 <*> Procedure Aortic Aneurysm Ascending Repair, CABG w Aortic Valve [facility] IntraOp Counts Final Entry 1 Procedure Aortic Aneurysm Ascending Repair, CABG w Aortic Valve, Transesophageal Echocardiogram Final Count Info Count Type Sponge, Sharps, Instrument, Miscellaneous Counts Verification Skin Closure/end of Sequence procedure Count Results Correct, surgeon notified Counts Performed By Count Performed By MELODY MASON (Scrub) Count Performed By RADHA VALENCIA RN (RN) Last Modified By: RADHA VALENCIA RN 11/16/18 12:01:46 [facility] IntraOp Cultures and Spec Summary Entry 1 Cultrures and Specimens Specimen Ordered: Yes Specimens Types Pathology Specimen(s) Labeled Pathology and Sent to Last Modified By: RADHA VALENCIA RN 11/16/18 09:22:38 [facility] IntraOp Departure from OR Entry 1 Integumentary Assessment Integumentary WDL Assessment WDL Transfer/Handoff Transfer to ICU - Cardiovascular Post-op Transport Bed (including Via specialty) Patient Transport SHERRY NICHOLS, Accompanied by Tye KHAN Tom, online retailer Last Modified By: RADHA VALENCIA RN 11/16/18 08:42:33 [facility] IntraOp Drains and Tubes Entry 1 [...] LISA E, RN 11/16/18 08:42:54 11/16/18 08:42:54 [facility] IntraOp Dressing and Packing Entry 1 Entry 2 Type Dressing Dressing Location Mediastinum Mediastinum Wound Dressing Item 4x4's, Skin Closure Glue 4x4's Wound Packing Type Tape Type Supplemental Applications Applied By Other Comments Soft cloth paper tape Soft cloth paper tape Last Modified By: RADHA VALENCIA RN ALTIZER, LISA E, RN 11/16/18 08:43:06 11/16/18 08:53:50 [facility] IntraOp Dressing and Packing Audit 11/16/18 08:53:50 Coal Wheeler: SAIGEIZEL Modifier: ALTIZEL <+> 2 Type <+> 2 Location <+> 2 Wound Dressing Item <+> 2 Other Comments [facility] IntraOp Fire Risk Assessment Entry 1 [...] Modified By: RADHA VALENCIA RN 11/16/18 07:20:01 [facility] IntraOp Fire Risk Assessment Audit 11/16/18 08:43:21 Coal Wheeler: SAIGEIZEL Modifier: ALTIZEL 1 <*> Fire Risk Assessment Verified 11/16/18 07:19:00 Date/Time [facility] IntraOp General Case Service Dismantler 1 Case Information OR OR 14 [facility] Case Level 2 Room Verified Yes Wound Class I - Clean Specialty SN Cardio Thoracic Anesthesia Type General ASA Class 4 Diagnosis Preop Diagnosis CAD, AORTIC VALVE DISEASE, ASCENDING AORTIC ANEURSYM Postop Diagnosis SEE MD POST OP NOTE Last Modified By: RADHA VALENCIA RN 11/16/18 08:50:46 [facility] IntraOp Implant Log Entry 1 Entry 2 Type Implant (Synthetic) Tissue Implant (Biologic) Implant Log Implant Type Grafts, non-biological Tissue Implant Type Heart valve Implant [facility] [place] PLAT VALVE AORT ROOT Identification [id number] [facility] [id number] Description Implant Quantity 1 1 Implant Site AORTA AORTA Implant Identification Model Number Implant [id number] Identification Serial Number Implant Identification Lot Number Implant Michel Ind:Maquet:Cv Medtronic:Card Surg:Tech Identification Set Up Mechanic Name: Implant [id number] Identification Catalog Number Implant Size Implant Has an Yes Yes Expiration Date Implant Expiration 08/23/23 05/20/22 Date Wasted Radioactive Material Time Implanted Tissue Implant Continue for Tissue Implant Documentation Tissue Identification Number Graft Prep Per Yes Set Up Mechanic Instructions: Tissue Preparation N/A Method: Reconstitution Solution: Reconstitution Solution Lot Number Reconstitution Solution Expiration Date: Thawing Solution Thawing Solution Lot Number Thawing Solution Expiration Date Preparation NACL Materials, Other Preparation [id number] Materials, Other Lot Number Preparation 06/22/22 Materials, Other Expiration Date Tissue MARLON, MELODY Prepared/Processed By Set Up Mechanic Yes Paperwork Completed Implant Type Comment Last Modified By: RADHA VALENCIA RN ALTIZER, LISA E, RN 11/16/18 09:42:38 11/16/18 09:42:38 [facility] IntraOp Intraoperative Assessment Entry 1 Handoff [...] Modified By: RADHA VALENCIA RN 11/16/18 08:25:54 [facility] IntraOp Intraoperative Equipment Entry 1 Equipment Intraop Monitoring Blood Pressure Non-Invasive BP Device Source Blood Pressure Arm, right upper Location Pulse Oximeter Hand, left Probe Site Antiembolic Devices Scopes Photo/Video Documentation Last Modified By: RADHA VALENCIA RN 11/16/18 08:51:22 [facility] IntraOp Medication Admin Entry 1 Entry 2 Entry 3 Medication/Irrigant papverine HCL 30mg/ml lidocaine 1% 50ml vial NS 0.9% 50ml injection 10ml - [id number] - [id number] - [id number] Combo Med List Time Administered Route of [...] advantage KT TISSEEL VH SD vial - [id number] Combo Med List Time Administered Route of IRRIGATION TOPICAL Administration Dose Dose 1 10 Unit of Measure gram ml Volume Administered By JULIO CESAR CARVALHO MD-CAT JULIO CESAR CARVALHO MD-CAT Procedure Irrigation Irrigant Volume In Irrigant Volume Out Last Modified By: RADHA VALENCIA RN ALTIZER, LISA E, RN 11/16/18 08:52:11 11/16/18 09:49:07 [facility] IntraOp Medication Admin Audit 11/16/18 11:07:14 [place]: ALTIZEL Modifier: ALTIZEL 2 <*> Medication/Irrigant lidocaine 1% 50ml vial - [id number] 2 <*> Administered By ALLA SORIANO RN 11/16/18 09:49:07 [place] Wheeler: ALTIZEL Modifier: ALTIZEL <+> 5 Medication/Irrigant <+> 5 Route of Administration <+> 5 Administered By <+> 5 Dose <+> 5 Unit of Measure [facility] IntraOp Patient Positioning Entry 1 Procedure [...] Modified By: RADHA VALENCIA RN 11/16/18 08:49:03 [facility] IntraOp Patient Positioning Audit 11/16/18 09:58:34 Coal Wheeler: ALTIZEL Modifier: ALTIZEL 1 <*> Procedure Aortic Aneurysm Ascending Repair, CABG w Aortic Valve [facility] IntraOp Sign In Entry 1 Patient, [...] Modified By: RADHA VALENCIA RN 11/16/18 07:19:47 [facility] IntraOp Sign Out Entry 1 RN [...] Modified By: RADHA VALENCIA RN 11/16/18 12:41:17 [facility] IntraOp Skin Prep Entry 1 Procedure Transesophageal Echocardiogram Prescribed Yes Pre-Surgical Prep Completed Prep Area Chin to TOES Intraop Prep Integumentary WDL Assessment WDL Patients Normal WDL Integumentary Variance(s) Prep Agents Chloraprep Prep by RADHA VALENCIA RN Skin Prep Comment Xander Soriano also prepped Hair Removal Last Modified By: RADHA VALENCIA RN 11/16/18 08:52:45 [facility] IntraOp Skin Prep Audit 11/16/18 09:58:34 Coal Wheeler: ALTIZEL Modifier: ALTIZEL <+> 1 Procedure [facility] IntraOp Surgical Procedures Entry 1 Entry [...] RN 11/16/18 09:57:36 11/16/18 08:49:06 11/16/18 09:58:24 [facility] IntraOp Surgical Procedures Audit 11/16/18 12:41:26 Coal Wheeler: ALTIZEL Modifier: ALTIZEL <+> 1 Stop <+> 2 Stop <+> 3 Stop 11/16/18 10:51:43 Coal Wheeler: ALTIZEL Modifier: ALTIZEL 1 <*> Procedure Aortic Aneurysm Ascending Repair 11/16/18 10:17:14 Coal Wheeler: ALTIZEL Modifier: ALTIZEL <+> 3 Start 11/16/18 09:58:24 Coal Wheeler: ALTIZEL Modifier: ALTIZEL <+> 3 Procedure <+> 3 Primary Procedure <+> 3 Primary Surgeon <+> 3 Specialty <+> 3 Wound Class <+> 3 Anesthesia Type 11/16/18 09:57:36 Coal Wheeler: ALTIZEL Modifier: ALTIZEL 1 <*> Procedure Aortic Aneurysm Ascending Repair 1 <*> Additional Procedure Description (ASCENDING AORTIC ANEURYSM REPAIR, CABG, POSSIBLE AORTIC VALVE REPLACEMENT) [facility] IntraOp Temp Regulation Devices Entry 1 Entry 2 Temp Regulation Temperature Forced Air Warming Warm blankets Regulation Device device Temperature [id number] Regulation Device Serial/Unit Number Temperature Lower body Full body Regulation Site Temperature Device 43 DEG C Setting Temperature RADHA VALENCIA RN ALTIZER, LISA E, RN Regulation Device Applied by Temperature CATIA HUGGER TURNED ON Regulation Comment AFTER AORTIC CROSS CLAMP REMOVED Last Modified By: RADHA VALENCIA RN ALTIZER, LISA E, RN 11/16/18 08:53:25 11/16/18 08:53:25 [facility] IntraOP Time Out Entry 1 Procedure [...] Modified By: RADHA VALENCIA RN 11/16/18 09:58:34 [facility] IntraOP Time Out Audit 11/16/18 09:58:34 Coal Wheeler: EARNESTINE Modifier: ALTIZEL 1 <*> Procedure to be Performed Aortic Aneurysm Ascending Repair, CABG w Aortic Valve Case Comments <None> Finalized By: JODI PITT Document Signatures Signed By: RADHA VALENCIA RN 11/16/18 12:41 JODI PITT 11/17/18 10:03 Unfinalized History Date/Time Username Reason for Unfinalizing Freetext Reason for Unfinalizing 11/17/18 09:59 [email or web address] Correct Billing Electronically signed by Parveen [facility] Conversion Retail Leader Cerner at 12/08/2022 12:09 PM CDT documented in this encounter Plan of Treatment Not on file documented as of this encounter Visit Diagnoses Not on filedocumented in this encounter
--- OUTSIDE RECORDS SUMMARY | 2025-06-14 13:27 | XMS_ITS | Encounter Summary ---
Author Organization [employer] ([place], [place], [place], [place]) Address [address] [place] [address] Care Team Providers Care Chiller Operator Name Role Phone Unavailable Primary Care Provider Unavailabl e Encounter Details Date Type Department Care Team (Late st Contact Info) Description 11/16/2018 Transcribed Document [facility] [place] Family Medicine [address] [place] [address] ProviderErika MD [address] [place] [address] Social History Tobacco Use Types Packs/Day Years Used Date Smoking Tobacco: Never Assessed Sex and Gender Information Value Date Recorded Sex Assigned at Not on file Legal Sex Male 5:03 PM CDT Gender Identity Not on file Sexual Orientation Not on file documented as of this encounter Miscellaneous Notes * Cerner Conversion Note - Erika ProviderMD - 11/16/2018 7:30 AM CDT [facility] Main OR Preop Summary Primary Physician: JULIO CESAR CARVALHO MD-CAT Finalized Date/Time: 11/16/18 07:12:04 Pt. Name: DOTTIE VILLASENOR D.O.B./Sex: 1940 Male Med Rec #: [id number] Physician: JULIO CESAR CARVALHO MD-CAT Financial #: [id number] Pt. Type: I Room/Bed: ASA/8 Admit/Disch: 11/16/18 06:45:00 - Institution: [facility] PreOp Case Times Entry 1 In [...]
--- OUTSIDE RECORDS SUMMARY | 2025-06-14 13:27 | XMS_ITS | Encounter Summary ---
Author Organization [employer] ([place], [place], [place], [place]) Address [address] [place] [address] Care Team Providers Care Zone Manager Name Role Phone Unavailable Primary Care Provider Unavailabl e Encounter Details Date Type Department Care Team (Late st Contact Info) Description 11/16/2018 Transcribed Document [facility] [place] [address] [place] [address] ProviderErika MD [address] [place] [address] Social History Tobacco Use Types [...] : 11/17/2018 00:00 Atherosclerotic heart disease of [place] coronary artery without angina pectoris 11/17/2018 00:00 Essential (primary) hypertension 11/17/2018 00:00 Hypothyroidism, unspecified 11/17/2018 00:00 Nonrheumatic aortic (valve) insufficiency 11/17/2018 00:00 Restless legs syndrome 11/17/2018 00:00 Thoracic aortic aneurysm, without rupture 11/17/2018 00:00 Thrombocytopenia, unspecified 11/16/2018 00:00 Atherosclerotic heart disease of [place] coronary artery without angina pectoris 11/16/2018 00:00 [...] ROGER LEWIS, PT - 11/18/2018 16:07 EDT [employer] Slide Assembler Goals Mobility/Bed Mobility LTG PT Grid [...] ROGER LEWIS, PT - 11/18/2018 16:07 EDT [place] PT Charges PT Eval Moderate Complexity : 1 ROGER LEWIS, PT - 11/18/2018 16:07 EDT documented in this encounter Plan of Treatment Not on file documented as of this encounter Visit Diagnoses Not on filedocumented in this encounter
--- OUTSIDE RECORDS SUMMARY | 2025-06-14 13:28 | XMS_ITS | Encounter Summary ---
Author Organization [employer] ([place], [place], [place], [place]) Address [address] [place] [address] Care Team Providers Care Set Up Mechanic Heading Machines Name Role Phone Unavailable Primary Care Provider Unavailabl e Encounter Details Date Type Department Care Team (Late st Contact Info) Description 11/20/2018 Transcribed Document [facility] [place] Family Medicine [address] [place] [address] ProviderErika MD [address] [place] [address] Social History Tobacco Use [...] Erika ProviderMD - 11/20/2018 9:36 AM CDT DIRECTOR TALENT Note Entered On: 11/24/2018 13:28 EDT Performed On: 11/24/2018 13:19 EDT by MAMTA SOLO, DIRECTOR TALENT Dysphagia Exercise Technique Dysphagia Therapy/Treatment Type #1 [...] Technique PO Trial #1 Consistency Trialed : [place] Oral Symptoms : None observed Pharyngeal Signs [...] 13:19 EDT Swallow Plan/Goals Swallow LTG Grid DIRECTOR TALENT Turn Down Worker Goal #1 DIRECTOR TALENT Long-Term Goal #2 Swallow LTG : Establish [...] Date Met : 11/22/2018 EDT MAMTA SOLO, [facility] - 11/24/2018 13:19 EDT MAMTA SOLO DIRECTOR TALENT - 11/24/2018 13:19 EDT MAMTA SOLO DIRECTOR TALENT - 11/24/2018 13:19 EDT MAMTA SOLO [facility] - 11/24/2018 13:19 EDT LTG Lang/Comm/Cog LTG DIRECTOR TALENT Turn Down Worker Goal 1 Long-Term Goal 2 Goals : Improved spoken language expression at the time of discharge Improved auditory/spoken language comprehension at the time of discharge Status : Initial Initial MAMTA SOLO [facility] - 11/24/2018 13:19 EDT MAMTA SOLO SLP - 11/24/2018 13:19 EDT STG Lang_Comm_Cog Motor Speech STG Grid Goal #1 Activity : Improve intelligibility of speech Status : Initial MAMTA SOLO [facility] - 11/24/2018 13:19 EDT Auditory Comprehension Grid Goal #1 Goal #2 Activity : Follow directions, 3 step commands simple Comprehend paragraph complex MAMTA SOLO [facility] - 11/24/2018 13:19 EDT MAMTA SOLO [facility] - 11/24/2018 13:19 EDT Verbal Expression STG Grid Goal #1 Activity : Generate items in a category MAMTA SOLO [facility] - 11/24/2018 13:19 EDT Reading Comprehension STG Grid Goal #1 Activity : Visual perception deficits MAMTA SOLO [facility] - 11/24/2018 13:19 EDT Attention STG Grid Goal #1 Activity : Other: Probe Status : Goal met Date Met : 11/24/2018 TGT MAMTA SOLO [facility] - 11/24/2018 13:19 EDT Memory STG Grid Goal #1 Goal #2 Goal #3 Activity : Other: Probe Improve short term functional delayed Improve short term working memory Status : Goal met Initial Initial Date Met : 11/24/2018 TGT MAMTA SOLO [facility] - 11/24/2018 13:19 EDT MAMTA SOLO [facility] - 11/24/2018 13:19 EDT MAMTA SOLO [facility] - 11/24/2018 13:19 EDT Problem [...] SOLO SLP - 11/24/2018 13:19 EDT Subjective/Assessment/Plan DIRECTOR TALENT Patient Concern : Pt was awake and lying in bed. Agreeable to tx. DIRECTOR TALENT Therapy/Treatment Asmt Cmnt : Pt seen for speech and dysphagia tx. Great participation in tx. Requires continuous cues for accurate completion of timing exercises. No overt pharyngeal patterns with nectar liquids. Further cogntive probe completed. Pt presents with a moderate cognitive deficits characterized by impairments in memory, orientation, and problem solving. POC updated. DIRECTOR TALENT Plan : Continue per POC. Repeat swallow study Thursday. MAMTA SOLO SLP - 11/24/2018 13:19 EDT Education Barriers To Learning : Cognitive deficit Individuals Taught : Patient Readiness to Learn : Cooperative Readiness to Learn : Explanation MAMTA SOLO SLP - 11/24/2018 13:19 EDT DIRECTOR TALENT Education Assessment Grid 1 Evaluation Results : Verbalizes understanding MAMTA SOLO SLP - 11/24/2018 13:19 EDT DIRECTOR TALENT Education Assessment Grid 2 Treatment Plan : Verbalizes understanding MAMTA SOLO SLP - 11/24/2018 13:[address] [place] [place] DIRECTOR TALENT Charges Speech Therapy : 1 Treatment-Swallowing : 1 MAMTA SOLO SLP - 11/24/2018 13:19 EDT Anticipated Discharge Needs, DIRECTOR TALENT Anticipated Discharge to OT : Rehab, high intensity Recommend Continued Therapy at Discharge : Yes MAMTA SOLO SLP - 11/24/2018 13:19 EDT Electronically signed by Christina Saini Conversion Teacher Emotionally Impaired Cerner at 12/12/2022 8:26 AM CDT documented in this encounter Plan of Treatment Not on file documented as of this encounter Visit Diagnoses Not on filedocumented in this encounter
--- OUTSIDE RECORDS SUMMARY | 2025-06-14 13:28 | XMS_ITS | Encounter Summary ---
Author Organization [employer] ([place], [place], [place], [place]) Address [address] [place] [address] Care Team Providers Care Zumba Instructor Name Role Phone Unavailable Primary Care Provider Unavailabl e Encounter Details Date Type Department Care Team (Late st Contact Info) Description 11/28/2018 Transcribed Document [facility] [place] [address] [place] [address] ProviderErika MD [address] [place], [place] [id number] Social History Tobacco Use Types Packs/Day Years Used Date Smoking Tobacco: Never Assessed Sex and Gender Information Value Date Recorded Sex Assigned at Not on file Legal Sex Male 5:03 PM CDT Gender Identity Not on file Sexual Orientation Not on file documented as of this encounter Miscellaneous Notes * Cerner Conversion Note - Historical ProviderMD - 11/28/2018 2:00 AM CDT Data Governance Analyst Details Entered On: 11/28/2018 2:45 EDT Performed [...] EDT Electronically signed by Christina Saini Conversion Chip Applying Machine Tender Cerner at 12/08/2022 12:20 PM CDT documented in this encounter Plan of Treatment Not on file documented as of this encounter Visit Diagnoses Not on filedocumented in this encounter
--- OUTSIDE RECORDS SUMMARY | 2025-06-14 13:28 | XMS_ITS | Encounter Summary ---
Author Organization [employer] ([place], [place], [place], [place]) Address [address] [place] [address] Care Team Providers Care Information Receptionist Name Role Phone Unavailable Primary Care Provider Unavailabl e Encounter Details Date Type Department Care Team (Late st Contact Info) Description 11/20/2018 Transcribed Document [facility] Pulm & Critical Care Medicine [address] [facility] [place] [address] Eloy Rodrigues MD [address] [place], [place] [id number] Social History Tobacco Use Types Packs/Day Years [...] 16:32:27 Trans: 11/20/2018 22:52:43 Processed: 11/22/2018 09:57:30 [place] CC1: Eloy Rodrigues M.D. documented in this encounter Plan of Treatment Not on file documented as of this encounter Visit Diagnoses Not on filedocumented in this encounter
--- OUTSIDE RECORDS SUMMARY | 2025-06-14 13:28 | XMS_ITS | Encounter Summary ---
Author Organization [employer] ([place], [place], [place], [place]) Address [address] [place] [address] Care Team Providers Care Children'S Minister Name Role Phone Unavailable Primary Care Provider Unavailabl e Encounter Details Date Type Department Care Team (Late st Contact Info) Description 11/16/2018 Transcribed Document [facility] [place] Family Medicine [address] [place] [address] ProviderErika MD [address] [place] [address] Social History Tobacco Use [...] Ambulatory Legal Guardian : Spouse Support Person/Patient Renewable Energy Technician : Yes Support Person/Pt Rep Name : Connie- Sumeet - son Support Person/Pt Rep Contact Information : [phone] home [phone] - cell Want Family/Rep/Phys Notified of Admit [...] : Patient, Medical Record Primary Language : Armenian Preferred Communication Mode : Verbal Communication Barrier [...] Scale Risk Level : 25-45 Medium Risk [place] Fall Interventions : Adequate lighting, Assistive devices [...] Source : Measured Height Entry Format : [place] Height, Feet : 6 ft(Converted to: 183 cm, 72 Inch) Height, Inches : 1 Inch(Converted to: 0 ft 1 Inch, 2.54 cm) Clinical Height : 185.42 cm Weight Source : Standing scale Weight Entry Format : [place] Clinical Dosing Weight : 79.23 kg Weight, Pounds : 174 lb Weight, Ounces : 5 oz Body Surface Area (BSA) : 2.03 m2 Body Mass Index : 23 kg/m2 [place] Body Weight : 79 kg FROY NEIL [...]
--- OUTSIDE RECORDS SUMMARY | 2025-06-14 13:28 | XMS_ITS | Encounter Summary ---
Author Organization [employer] [facility] ([place], [place], [place], [place]) Address [address] [place] [address] Care Team Providers Care Referral Specialist Name Role Phone Unavailable Primary Care Provider Unavailabl e Encounter Details Date Type Department Care Team (Late st Contact Info) Description 11/28/2018 Transcribed Document [facility] [place] Family Medicine [address] [place] [address] ProviderErika MD [address] [place] [address] Social History Tobacco Use Types Packs/Day Years Used Date Smoking Tobacco: Never Assessed Sex and Gender Information Value Date Recorded Sex Assigned at Not on file Legal Sex Male 5:03 PM CDT Gender Identity Not on file Sexual Orientation Not on file documented as of this encounter Miscellaneous Notes * Cerner Conversion Note - Erika ProviderMD - 11/28/2018 10:19 AM CDT [facility] Main OR IntraOp Summary Primary Physician: SAMAN BERNSTEIN MD-GAE Finalized Date/Time: 11/30/18 09:14:16 Pt. Name: DOTTIE VILLASENOR D.O.B./Sex: 1940 Male Med Rec #: [id number] Physician: JULIO CESAR CARVALHO MD-[facility] Financial #: [id number] Pt. Type: I Room/Bed: [facility] Admit/Disch: 11/16/18 06:45:00 - Institution: [facility] IntraOp Case Attendance Entry 1 Entry 2 Entry 3 Case Attendee SAMAN BERNSTEIN MD-SALMA GARCIA MD WURTELE, JOHN L. Role Performed Surgeon/Proceduralist, Anesthesiologist Brim Pouncer Machine Operator, Ancillary First Time In 11/28/18 10:10:00 11/28/18 10:10:00 11/28/18 10:10:00 Time Out 11/28/18 10:35:00 11/28/18 10:35:00 11/28/18 10:35:00 Procedure Esophagogastroduodenosco Esophagogastroduodenosco Esophagogastroduodenosco py py py Other Attendee Superficial Wound Closed By: Last Modified By: Sukumar Casanova, Sukumar Gibbs, Sukumar Gibbs RN 11/28/18 11:00:07 11/28/18 11:00:07 11/28/18 11:00:07 Entry 4 Entry 5 Case Attendee Dianne Garcia, Sukumar Gibbs, TONJA Role Performed Technical Sales Advisor, First Technical Sales Advisor, Second Time In 11/28/18 10:10:00 11/28/18 10:10:00 Time Out 11/28/18 10:35:00 11/28/18 10:35:00 Procedure Esophagogastroduodenosco Esophagogastroduodenosco py py Other Attendee Superficial Wound Closed By: Last Modified By: Sukumar Casanova, Sukumar Gibbs RN 11/28/18 11:00:07 11/28/18 11:00:07 [facility] IntraOp Case Attendance Audit 11/28/18 11:00:07 Pvc Monitor: ANDRADES Modifier: PANTANOS 1 <+> Time Out 1 <*> Procedure Esophagogastroduodenoscopy 2 <+> Time Out 2 <*> Procedure Esophagogastroduodenoscopy 3 <+> Time Out 3 <*> Procedure Esophagogastroduodenoscopy 4 <+> Time Out 4 <*> Procedure Esophagogastroduodenoscopy 5 <+> Time Out 5 <*> Procedure Esophagogastroduodenoscopy 11/28/18 10:20:36 Pvc Monitor: FABIANAANOS Modifier: PANTANOS <+> 1 Procedure 2 <+> Time In 2 <*> Procedure Esophagogastroduodenoscopy 3 <+> Time In 3 <*> Procedure Esophagogastroduodenoscopy 4 <+> Time In 4 <*> Procedure Esophagogastroduodenoscopy 5 <+> Time In 5 <*> Procedure Esophagogastroduodenoscopy [facility] IntraOp Case Times Entry 1 Patient In Room Time 11/28/18 10:10:00 Out Room Time 11/28/18 10:35:00 Anesthesia Start Time 11/28/18 10:10:00 Stop Time 11/28/18 10:35:00 Surgery / Procedure Times Start Time 11/28/18 10:19:00 Stop Time 11/28/18 10:33:00 Last Modified By: Sukumar Casanova RN 11/28/18 10:59:40 [facility] IntraOp Case Times Audit 11/28/18 10:59:40 Pvc Monitor: PANTANOS Modifier: PANTANOS <+> 1 Out Room Time <+> 1 Stop Time <+> 1 Stop Time 11/28/18 10:22:00 Pvc Monitor: PANTANOS Modifier: PANTANOS <+> 1 Start Time [facility] IntraOp Departure from OR Entry 1 Integumentary Assessment Transfer/Handoff Transfer to PACU Phase I Handoff Method Bedside/Face to face, Online nursing summary Post-op Transport Stretcher/Gurney Via Patient Transport Sukumar Casanova RN, Accompanied by SALMA MARROQUIN MD Last Modified By: Sukumar Casanova RN 11/28/18 10:25:50 [facility] IntraOp Departure from OR Audit 11/28/18 10:25:50 Pvc Monitor: FABIANAANOS Modifier: PANTANOS 1 <*> Patient Transport Accompanied by Sukumar Casanova RN [facility] IntraOp Fire Risk Assessment Entry 1 [...] Modified By: Sukumar Casanova RN 11/28/18 10:15:58 [facility] IntraOp General Case Jigger Machine Operator 1 Case Information OR OR [facility] Case Level 1 Room Verified Yes Wound Class II - Clean-Contaminated Specialty SN Gastroenterology Anesthesia Type General ASA Class 4E Diagnosis Preop Diagnosis GASTRIC BLEED Postop Same As Preop Yes Postop Diagnosis GASTRIC BLEED Last Modified By: Sukumar Casanova RN 11/28/18 10:18:38 [facility] IntraOp General Case Data Audit 11/28/18 10:18:38 Pvc Monitor: WILL Modifier: PANTANOS <+> 1 Postop Same As Preop <+> 1 Preop Diagnosis <+> 1 Postop Diagnosis [facility] IntraOp Intraoperative Assessment Entry 1 Handoff [...] Modified By: Sukumar Casanova RN 11/28/18 10:21:06 [facility] IntraOp Intraoperative Equipment Entry 1 Type Monitoring Equipment Intraop Monitoring Electrocardiogram Three lead placement (ECG) Electrode Placement Blood Pressure Non-Invasive BP Device Source Blood Pressure Arm, right upper Location Pulse Oximeter Hand, left Probe Site Antiembolic Devices Scopes Photo/Video Documentation Last Modified By: Sukumar Casanova RN 11/28/18 10:21:34 [facility] IntraOp Patient Positioning Entry 1 Procedure Esophagogastroduodenosco py Body Position Supine Left Arm Position Tucked and padded at side Right Arm Position Tucked and padded at side Left Leg Position Uncrossed, parallel Right Leg Position Uncrossed, parallel Feet Uncrossed Yes Pressure Points Yes Checked Positioning Devices Roll, Hip, Pillows, Safety Strap, Thighs Positioned By SAMAN BERNSTEIN MD-TAO, SALMA MARROQUIN MD, Dianne Gracia, TONJA Position Verified Positioning Yes Verified by Anesthesia Positioning Yes Verified by Surgeon Last Modified By: Sukumar Casanova RN 11/28/18 10:20:33 [facility] IntraOp Sign In Entry 1 Patient, [...] Modified By: Sukumar Casanova RN 11/28/18 10:22:31 [facility] IntraOp Sign Out Entry 1 RN [...] Modified By: Sukumar Casanova RN 11/28/18 11:00:01 [facility] IntraOp Sign Out Audit 11/28/18 11:00:01 Pvc Monitor: WILL Modifier: WILL <+> 1 RN Sign Out Signature Date/Time [facility] IntraOp Surgical Procedures Entry 1 Procedure Esophagogastroduodenosco py Additional (EGD WITH CONTROL OF Procedure BLEEDING) Description Primary Procedure Yes Primary Surgeon SAMAN BERNSTEIN MD-TAO Start 11/28/18 10:19:00 Stop 11/28/18 10:33:00 Anesthesia Type General Specialty SN Gastroenterology Wound Class II - Clean-Contaminated Last Modified By: Sukumar Casanova RN 11/28/18 10:59:52 [facility] IntraOp Surgical Procedures Audit 11/28/18 10:59:52 Pvc Monitor: WILL Modifier: WILL 1 <*> Procedure Esophagogastroduodenoscopy 1 <+> Specialty 11/28/18 10:59:43 Pvc Monitor: WILL Modifier: WILL <+> 1 Start <+> 1 Stop [facility] IntraOp Temp Regulation Devices Entry 1 Temp Regulation Temperature Warm blankets Regulation Device Temperature Full body Regulation Site Last Modified By: Sukumar Casanova RN 11/28/18 10:26:13 [facility] IntraOP Time Out Entry 1 Procedure [...] Modified By: Sukumar Casanova RN 11/28/18 10:21:53 [facility] IntraOP Time Out Audit 11/28/18 10:21:53 Pvc Monitor: WILL Modifier: WILL 1 <+> Time Out Pause Time 1 <*> Procedure to be Performed Esophagogastroduodenoscopy Case Comments <None> Finalized By: JODI PITT Document Signatures Signed By: Sukumar Casanova RN 11/28/18 11:00 JODI PITT 11/30/18 09:14 Unfinalized History Date/Time Username Reason for Unfinalizing Freetext Reason for Unfinalizing 11/30/18 09:13 [email or web address] Correct Billing Electronically signed by Parveen [facility] Conversion Metaphysics Teacher Cerner at 12/08/2022 12:19 PM CDT documented in this encounter Plan of Treatment Not on file documented as of this encounter Visit Diagnoses Not on filedocumented in this encounter
--- OUTSIDE RECORDS SUMMARY | 2025-06-14 13:28 | XMS_ITS | Encounter Summary ---
Author Organization [employer] ([place], [place], [place], [place]) Address [address] [place] [address] Care Team Providers Care Plaster Molder Name Role Phone Unavailable Primary Care Provider Unavailabl e Encounter Details Date Type Department Care Team (Late st Contact Info) Description 11/28/2018 Transcribed Document [facility] [place] Family Medicine [address] [place] [address] ProviderErika MD [address] [place] [address] Social History Tobacco Use Types [...]
--- OUTSIDE RECORDS SUMMARY | 2025-06-14 13:28 | XMS_ITS | Encounter Summary ---
Author Organization [employer] ([place], [place], [place], [place]) Address [address] [place] [address] Care Team Providers Care Government Auditor Name Role Phone Unavailable Primary Care Provider Unavailabl e Encounter Details Date Type Department Care Team (Late st Contact Info) Description 11/20/2018 Transcribed Document [facility] [place] Family Medicine [address] [place] [address] ProviderErika MD [address] [place] [address] Social History Tobacco Use Types [...] TORREY ZUNIGA SLP General Information Visit Type, DRILL PRESSER : Initial evaluation Patient Orders : DRILL PRESSER Fxnl Limitation Documentation x 1 -111 Start: 11/20/18 8:39:00 EDT - SYSTEM, SYSTEM DRILL PRESSER Bedside Swallow Evaluation - Start: 11/20/18 8:38:00 EDT, Routine, For Swallow Eval and Treat -111 MICHAEL RODRIGUEZ MD Ordering Provider : MICHAEL RODRIGUEZ MD Admission Date : Admission Date/Time: 11/16/18 06:45:00 Personal Devices : Personal Devices No Devices Recorded Assistive Devices : Assistive Devices No Devices Recorded Active Diagnoses : 11/17/2018 00:00 Atherosclerotic heart disease of [place] coronary artery without angina pectoris 11/17/2018 00:00 Essential (primary) hypertension 11/17/2018 00:00 Hypothyroidism, unspecified 11/17/2018 00:00 Nonrheumatic aortic (valve) insufficiency 11/17/2018 00:00 Restless legs syndrome 11/17/2018 00:00 Thoracic aortic aneurysm, without rupture 11/17/2018 00:00 Thrombocytopenia, unspecified 11/16/2018 00:00 Atherosclerotic heart disease of [place] coronary artery without angina pectoris 11/16/2018 00:00 Nonrheumatic aortic (valve) insufficiency 11/16/2018 00:00 Thoracic aortic aneurysm, without rupture Therapy Diagnosis, DRILL PRESSER : overt signs and symptoms of aspiration at bedside Previous Speech/Language Evaluations : N/A Previous Swallow Precautions : N/A Previous Cognitive Evaluations : N/A Diet/Intake Prior to Current Admission : Regular/thin Diet/Intake During Current Admission : NPO Intubation Comment, DRILL PRESSER : 11/16-11/17 Vital Signs RTF : Vitals [...] : Nasal cannula 3 L/min TORREY ZUNIGA DRILL PRESSER - 11/20/2018 9:21 EDT General Status Patient Received Status, DRILL PRESSER : Long sitting in bed Patient Left Status, DRILL PRESSER : Long sitting in bed TORREY ZUNIGA [...] Hoarse, Other: Weak Resonance Types : Appropriate DRILL PRESSER Cough : Weak Facial Appearance: : Symmetrical [...] noted with thin via straw and puree. DRILL PRESSER unable to determine safe diet at bedside, recommend FEES to further assess swallow function. Continue NPO with alternate means of nutrition and meds until FEES. DRILL PRESSER discussed results and recs with patient and family. TORREY ZUNIGA SLP - 11/20/2018 9:26 EDT Impressions, BS Swallow : Signs/Symptoms of pharyngeal dysphagia Swallowing Outcome Measures : Functional Oral Intake Scale (FOIS) Functional Oral Intake Scale (FOIS) : Level I TORREY ZUNIGA DRILL PRESSER - 11/20/2018 9:21 EDT Swallow Recommendations Recommended Diet Type, SwRec : Non-oral feeding, NPO Swallow Position, SwRec : Upright 90 degrees Recommended Med Present, SwRec : Non-oral Recommended Exam, Sw Rec : FEES Repeat Swallow Exam Timeframe : 1-3 days TORREY ZUNIGA SLP - 11/20/2018 9:26 EDT Therapy Indication Assessment DRILL PRESSER Indicated : Yes DRILL PRESSER Problem List : Impaired, Swallowing TORREY ZUNIGA SLP - 11/20/2018 9:26 EDT Swallow Plan/Goals Treatment Frequency, DRILL PRESSER : 4 times per wk Treatment Duration, DRILL PRESSER : Two weeks TORREY ZUNIGA SLP - 11/20/2018 9:26 EDT Swallow LTG Grid DRILL PRESSER Longterm Goal #1 Swallow LTG : Establish safe [...] TORREY ZUNIGA SLP - 11/20/2018 9:26 EDT DRILL PRESSER Education Assessment Grid 1 Diet Recommendation : Verbalizes understanding Dysphagia : Verbalizes understanding Non-Oral Nutrition : Verbalizes understanding NPO : Verbalizes understanding TORREY ZUNIGA SLP - 11/20/2018 9:26 EDT DRILL PRESSER Education Assessment Grid 2 Treatment Plan : Verbalizes understanding TORREY ZUNIGA SLP - 11/20/2018 9:[address] [facility] DRILL PRESSER Charges Evaluation Swallowing Function : 1 TORREY ZUNIGA SLP - 11/20/2018 9:26 EDT Functional Limitation Reporting, DRILL PRESSER Functional Limitation Visit Type, DRILL PRESSER : Initial evaluation Severity Determination Method, DRILL PRESSER : Clinical Judgment, Swallowing Swallow G8996 - Current Mod, DRILL PRESSER : 80 - 99% impaired, limited or restricted (CM) Swallow G8997 - Proj Goal Mod, DRILL PRESSER : 1 - 19% impaired, limited or restricted (CI) TORREY ZUNIGA SLP - 11/20/2018 9:26 EDT Electronically signed by Parveen [facility] Conversion Sugar Coating Hand Cerner at 12/08/2022 12:30 PM CDT documented in this encounter Plan of Treatment Not on file documented as of this encounter Visit Diagnoses Not on filedocumented in this encounter
--- OUTSIDE RECORDS SUMMARY | 2025-06-14 13:28 | XMS_ITS | Encounter Summary ---
Author Organization [employer] ([place], [place], [place], [place]) Address [address] [place] [address] Care Team Providers Care Museum Tour Guide Name Role Phone Unavailable Primary Care Provider Unavailabl e Encounter Details Date Type Department Care Team (Late st Contact Info) Description 11/16/2018 Transcribed Document [facility] [place] Family Medicine [address] [place] [address] ProviderErika MD [address] [place] [address] Social History Tobacco Use Types [...] form. Electronically signed by Christina Saini Conversion Lithographic Plate Maker Apprentice Cerner at 12/08/2022 12:14 PM CDT documented in this encounter Plan of Treatment Not on file documented as of this encounter Visit Diagnoses Not on filedocumented in this encounter
--- OUTSIDE RECORDS SUMMARY | 2025-06-14 13:28 | XMS_ITS | Encounter Summary ---
Author Organization [employer] ([place], [place], [place], [place]) Address [address] [place] [address] Care Team Providers Care Stores Assistant Name Role Phone Unavailable Primary Care Provider Unavailabl e Encounter Details Date Type Department Care Team (Late st Contact Info) Description 11/16/2018 Transcribed Document [facility] [place] Family Medicine [address] [place] [address] ProviderErika MD [address] [place] [address] Social History Tobacco Use Types [...] anterior descending). SURGEON: Porfirio Gaxiola IV, MD WOODWORKING BENCH CARPENTER: Saud Oliver (AMANDA) ANESTHESIA: General orotracheal. CLINICAL [...] Gaxiola IV, M.D. Electronically signed by Parveen [facility] Conversion Skating Rink Ice Maker Cerner at 12/08/2022 12:25 PM CDT documented in this encounter Plan of Treatment Not on file documented as of this encounter Visit Diagnoses Not on filedocumented in this encounter
--- OUTSIDE RECORDS SUMMARY | 2025-06-14 13:29 | XMS_ITS | Encounter Summary ---
Author Organization [employer] ([place], [place], [place], [place]) Address [address] [place] [address] Care Team Providers Care Reliability Engineer Name Role Phone Unavailable Primary Care Provider Unavailabl e Encounter Details Date Type Department Care Team (Late st Contact Info) Description 11/16/2018 Transcribed Document [facility] [place] Family Medicine [address] [place] [address] ProviderErika MD [address] [id number] Social History Tobacco Use Types Packs/Day Years [...] insufficiency; Coronary artery disease Author: JULIO CESAR CARVAHLO MD-CAT Postoperative Information Preoperative Diagnosis: Thoracic ascending aortic aneurysm - Discharge, Medical, Aortic insufficiency - Discharge, Medical, Coronary artery disease - Discharge, Medical. Postoperative Diagnosis: Thoracic ascending aortic aneurysm - Discharge, Medical, Aortic insufficiency - Discharge, Medical, Coronary artery disease - Discharge, Medical. Performed by: JULIO CESAR CARVALHO MD-CAT. Visual Stylist: ERASMO LÓPEZ PA. Notes: Procedure: Resection and [...]
--- OUTSIDE RECORDS SUMMARY | 2025-06-14 13:29 | XMS_ITS | Encounter Summary ---
Author Organization [employer] ([place], [place], [place], [place]) Address [address] [place] [address] Care Team Providers Care Collection Supervisor Name Role Phone Unavailable Primary Care Provider Unavailabl e Encounter Details Date Type Department Care Team (Late st Contact Info) Description 11/05/2018 Transcribed Document [facility] [place] [address] [place] [address] ProviderErika MD [address] [place] [address] Social History Tobacco Use Types [...] Source : Stated Height Entry Format : [place] Height, Feet : 6 ft(Converted to: 183 cm, 72 Inch) Height, Inches : 1 Inch(Converted to: 0 ft 1 Inch, 2.54 cm) Clinical Height : 185.42 cm Weight Source : Standing scale Weight Entry Format : [place] Clinical Dosing Weight : 77.27 kg Weight, Pounds : 170 lb Body Surface Area (BSA) : 2.01 m2 Body Mass Index : 22.5 kg/m2 [place] Body Weight : 79 kg SRIRAM PATEL [...] Any Spiritual/Cultural Needs or Requests : No Hindu Preference : Christian SRIRAM PATEL RN - 11/05/2018 8:49 EDT [...] Obtained From : Patient Primary Language : Indian Preferred Communication Mode : Verbal Communication Barrier [...] Scale Risk Level : 0-24 Low Risk [place] Fall Interventions : Adequate lighting, Bed in [...] rendition version of the form. Kavin Coma [place] Best Motor Response : Obey commands Kavin Best Verbal Response : Oriented [place] Eye Opening Response : Spontaneous Kavin Coma Score : 15 SRIRAM PATEL RN - 11/05/2018 8:49 EDT documented in this encounter Plan of Treatment Not on file documented as of this encounter Visit Diagnoses Not on filedocumented in this encounter
--- OUTSIDE RECORDS SUMMARY | 2025-06-14 13:29 | XMS_ITS | Encounter Summary ---
Author Organization [employer] ([place], [place], [place], [place]) Address [address] [place] [address] Care Team Providers Care Profile Saw Setup Operator Name Role Phone Unavailable Primary Care Provider Unavailabl e Encounter Details Date Type Department Care Team (Late st Contact Info) Description 11/16/2018 Transcribed Document [facility] [place] [address] [place] [address] ProviderErika MD [address] [place] [address] Social History Tobacco Use Types [...] On: 11/16/2018 12:27 EDT by [facility], [facility] Phone Call for Consults Consult Phone Call/Page Attempt : Other: Valve: no call [facility]in Pratt [facility] - 11/16/2018 13:34 EDT documented in this encounter Plan of Treatment Not on file documented as of this encounter Visit Diagnoses Not on filedocumented in this encounter
--- OUTSIDE RECORDS SUMMARY | 2025-06-14 13:29 | XMS_ITS | Encounter Summary ---
Author Organization [employer] ([place], [place], [place], [place]) Address [address] [place] [address] Care Team Providers Care Core Layer Machine Operator Name Role Phone Unavailable Primary Care Provider Unavailabl e Encounter Details Date Type Department Care Team (Late st Contact Info) Description 11/21/2018 Transcribed Document [facility] [place] Family Medicine [address] [place] [address] ProviderErika MD [address] [place] [address] Social History Tobacco Use Types [...] 11/21/2018 9:37 EDT by José Miguel Tran, [facility] Phone Call for Consults Consult Phone Call/Page Attempt : Other: Nurse spoke to Dr. Amaro. José Miguel Tran [facility] - 11/21/2018 9:40 EDT documented in this encounter Plan of Treatment Not on file documented as of this encounter Visit Diagnoses Not on filedocumented in this encounter
--- OUTSIDE RECORDS SUMMARY | 2025-06-14 13:29 | XMS_ITS | Encounter Summary ---
Author Organization [employer] ([place], [place], [place], [place]) Address [address] [place] [address] Care Team Providers Care Systems Navigator Name Role Phone Unavailable Primary Care Provider Unavailabl e Encounter Details Date Type Department Care Team (Late st Contact Info) Description 11/16/2018 Transcribed Document [facility] [place] Family Medicine [address] [place] [address] ProviderErika MD [address], [place] [id number] Social History Tobacco Use Types Packs/Day Years [...] All Problems Prostate stricture / SNOMED CT 95557024 / Confirmed Restless legs syndrome / SNOMED CT 89347632 / Confirmed Nocturia / SNOMED CT 430367043 / Confirmed Cancer of skin of face / SNOMED CT 6445725321 / Confirmed Frequent urination / SNOMED CT 206731621 / Confirmed Hypothyroidism / SNOMED CT 53544026 / Confirmed HTN - Hypertension / SNOMED CT 8368503116 / Confirmed Disorder of prostate ( enlarged) / SNOMED CT 25832768 / Confirmed CAD (coronary artery disease) / SNOMED CT 62765204 / Confirmed At risk for sleep apnea / IMO 91928461 / Confirmed Arthritis / SNOMED CT 4493963 / Confirmed Aortic valve insufficiency / SNOMED CT 909718867 / Confirmed Aneurysm, thoracic aortic / SNOMED CT 3648276637 / Confirmed, Active Problems (13) Aneurysm, thoracic aortic Aortic valve insufficiency Arthritis At risk for sleep apnea CAD (coronary artery disease) Cancer of skin of face Disorder of prostate ( enlarged) Frequent urination HTN - Hypertension Hypothyroidism Nocturia Prostate stricture Restless legs syndrome Histories Past Medical History: Active HTN - Hypertension (2425330663) Hypothyroidism (72472061) Family History: Entire family history is negative. [...] EDT Height Source Measured Height Entry Format [place] Height/Length, HUNGARIAN (ft) 6 ft Height/Length HUNGARIAN 1 Inch CLINICALHEIGHT 185.42 cm [place] Body Weight 79 kg Weight Source Standing scale Weight Entry Format [place] Weight Tongan lb 174 lb Weight Tongan oz 5 oz CLINICALWEIGHT 79.23 kg Body [...] of motion, Normal strength. Integumentary: Warm, Dry, [place]. Neurologic: Alert, Oriented. Psychiatric: Cooperative, Appropriate mood [...] % 32.4 % Lymph # 2.32 x10(3)/uL Wagoner % 9.5 % HI Wagoner # 0.68 K/uL Eos % 1.1 % [...] Color Yellow Urine Appearance Clear Urine Specific Wilmer 1.016 Urine pH Dipstick 6.5 Urine Leukocyte [...]
--- OUTSIDE RECORDS SUMMARY | 2025-06-14 13:29 | XMS_ITS | Encounter Summary ---
Author Organization [employer] ([place], [place], [place], [place]) Address [address] [place] [address] Care Team Providers Care Steamboat Inspector Name Role Phone Unavailable Primary Care Provider Unavailabl e Encounter Details Date Type Department Care Team (Late st Contact Info) Description 11/28/2018 Transcribed Document [facility] [place] [address] [place] [address] ProviderErika MD [address] [place], [place] [id number] Social History Tobacco Use Types Packs/Day Years [...] mg, Oral, At Bedtime saliva substitutes: 1 Clarence, Buccal, Q2H, PRN: Other (See Comment) warfarin: [...] Q1H saliva substitute liq 59 mL 1 Clarence, Buccal, Q2H Problem list: Medical Aneurysm, thoracic aortic / SNOMED CT 1449040659 / Confirmed Aortic valve insufficiency / SNOMED CT 597158925 / Confirmed Arthritis / SNOMED CT 3708296 / Confirmed At risk for sleep apnea / IMO 98001825 / Confirmed CAD (coronary artery disease) / SNOMED CT 20921556 / Confirmed HTN - Hypertension / SNOMED CT 4151802556 / Confirmed Hypothyroidism / SNOMED CT 72480519 / Confirmed Frequent urination / SNOMED CT 779637837 / Confirmed Nocturia / SNOMED CT 849509723 / Confirmed Prostate stricture / SNOMED CT 68860753 / Confirmed, Active Problems (13) Aneurysm, thoracic [...] swelling - improved today. Integumentary: Warm, Dry, [place], incision is C/D/I. Neurologic: Alert, Oriented, left [...] (Current Encounter/Past 24 Hours) PT 20.8 Second(s) KS 11/28/2018 09:08 PTT 27.6 Second(s) 11/28/2018 08:53 INR 2.0 KS 11/28/2018 09:08 . Impression and Plan Plan: [...] CM has sent information to [facility] -Transfer to [facility] 11/24/18 -POD#8 -Awaiting transfer to [facility] -Awaiting response from [facility] 11/25/18 -left upper extremity venous doppler - doppler this am positive for LUE DVT - will start coumadin and heparin bridge -awaiting [facility] 11/26/18 -Heparin drip and coumadin for LUE DVT Left arm swelling improved today INR 1.1 today, INR goal 2-3 Possibly transfer to [facility] this weekend 11/27/18: Left arm swelling continues to improve Continues on Coumadin and heparin bridge INR: 1.4 (1.1 yesterday) goal: 2 to 3 [facility] soon,? Tomorrow 11/28/18 BP in [...]
--- OUTSIDE RECORDS SUMMARY | 2025-06-14 13:29 | XMS_ITS | Encounter Summary ---
Author Organization [employer] ([place], [place], [place], [place]) Address [address] [place] [address] Care Team Providers Care Visually Impaired Teacher Name Role Phone Unavailable Primary Care Provider Unavailabl e Encounter Details Date Type Department Care Team (Late st Contact Info) Description 11/28/2018 Transcribed Document [facility] [place] Medicine [address] [place] [address] ProviderErika MD [address] [place] [address] Social History Tobacco Use Types [...]
--- OUTSIDE RECORDS SUMMARY | 2025-06-14 13:29 | XMS_ITS | Encounter Summary ---
Author Organization [employer] ([place], [place], [place], [place]) Address [address] [place] [address] Care Team Providers Care Aircraft Instrument Mechanic Name Role Phone Unavailable Primary Care Provider Unavailabl e Encounter Details Date Type Department Care Team (Late st Contact Info) Description 11/05/2018 Transcribed Document [facility] [place] Family Medicine [address] [place] [address] ProviderErika MD [address] [place] [address] Social History Tobacco Use Types Packs/Day Years Used Date Smoking Tobacco: Never Assessed Sex and Gender Information Value Date Recorded Sex Assigned at Not on file Legal Sex Male 5:03 PM CDT Gender Identity Not on file Sexual Orientation Not on file documented as of this encounter Miscellaneous Notes * Cerner Conversion Note - Erika ProviderMD - 11/05/2018 12:48 PM CDT [address] [address] Patient Copy Patient Information: Name: DOTTIE VILLASENOR Current Date: 11/05/2018 12:48:54 : 1940 Patient Address: [address] [place] [id number] Patient Attending Physician: LEYLA ARMENDARIZ MD-CAR Primary Care Provider: DEMETRICE ARMIJO NP-JORGE Primary Care Provider Discharge Diagnosis: Weight on Admission: 170 lb, 0 oz Comment: Follow-up Instructions: With: Address: When: JULIO CESAR GAXIOLA [address] [place] [address], [address] [address] Business (1) 1:30 PM Comments: Follow up with Dr. Gaxiola , surgeon, October at 1:30 pm With: Address: When: JULIO CESAR [address] [place] [address] ev-social (1) 1:15 PM Comments: Follow up with [...] you are awake and alert. ??? Take qfke-rsb-ucyqwsw and prescription medicines only as told by [...] 05/31/2014 Document Revised: 01/12/2017 Document Reviewed: 11/29/2016 [employer] Interactive Patient Education ? 2017 [employer]. Radial Site Care Introduction Refer to this [...] 02/26/2006 Document Revised: 01/15/2017 Document Reviewed: 01/11/2014 [employer] Interactive Patient Education ? 2017 [employer]. CIGARETTE SMOKING: The facts are clear, cigarette smoking will shorten your life. Smoking can cause many illnesses along the way. As a healthcare provider, we recommend that you stop smoking. Assistance with quitting is available by contacting 3-371-SFXG-NOW. This is a free resource providing counseling, [...] Be sure to sign up for the [employer] patient portal, which gives you 16/03 access to your medical information ??? including these discharge instructions ??? using your computer, smartphone, or tablet. Just go to [employer] to get started. Questions? Call . [facility] would like to thank you for allowing us to assist you with your healthcare needs. HAMILTON Jarvis ROBERT H, (or product support representative) have received the above patient education materials/instructions and have verbalized understanding: Patient Signature _ Date/Time Patient Local Company Flatbed Truck Driver Signature (if needed) Date/Time Clinician/Hospital Local Company Flatbed Truck Driver Signature (if needed) Date/Time Electronically signed by Parveen, [facility] Conversion Tire Layer Cerner at 12/08/2022 12:14 PM CDT documented in this encounter Plan of Treatment Not on file documented as of this encounter Visit Diagnoses Not on filedocumented in this encounter
--- OUTSIDE RECORDS SUMMARY | 2025-06-14 13:29 | XMS_ITS | Encounter Summary ---
Author Organization [employer] ([place], [place], [place], [place]) Address [address] [place] [address] Care Team Providers Care Chemical Research Worker Name Role Phone Unavailable Primary Care Provider Unavailabl e Encounter Details Date Type Department Care Team (Late st Contact Info) Description 11/16/2018 Transcribed Document [facility] [place] Family Medicine [address] [place] [address] ProviderErika MD [address] [place] [address] Social History Tobacco Use Types [...] On: 11/16/2018 12:27 EDT by [facility] Phone Call for Consults Consult Phone Call/Page Attempt : First call [facility] - 11/16/2018 13:34 EDT documented in this encounter Plan of Treatment Not on file documented as of this encounter Visit Diagnoses Not on filedocumented in this encounter
--- OUTSIDE RECORDS SUMMARY | 2025-06-14 13:29 | XMS_ITS | Encounter Summary ---
Author Organization [employer] ([place], [place], [place], [place]) Address [address] [place] [address] Care Team Providers Care Research Agricultural Engineer Name Role Phone Unavailable Primary Care Provider Unavailabl e Encounter Details Date Type Department Care Team (Late st Contact Info) Description 11/28/2018 Transcribed Document [facility] [place] [address] [place] [address] ProviderErika MD [address] [place], [place] [id number] Social History Tobacco Use Types Packs/Day Years [...]
--- OUTSIDE RECORDS SUMMARY | 2025-06-14 13:29 | XMS_ITS | Encounter Summary ---
Author Organization [employer] ([place], [place], [place], [place]) Address [address] [place] [address] Care Team Providers Care Project Management Intern Name Role Phone Unavailable Primary Care Provider Unavailabl e Encounter Details Date Type Department Care Team (Late st Contact Info) Description 11/28/2018 Transcribed Document [facility] [place] Family Medicine [address] [place] [address] ProviderErika MD [address] [place], [place] [id number] Social History Tobacco Use Types Packs/Day Years [...] Spiritual Care Reason for Visit : Other: LIGHT RAIL TRAIN OPERATOR Intervention/Comment/Summary Points : Pt fell back to sleep after RNs finished assessing pt. No needs at this time. Jew Preference : Alevism MALU SHEPARD Chaplain-Non Cert - 11/28/2018 5:34 EDT documented in this encounter Plan of Treatment Not on file documented as of this encounter Visit Diagnoses Not on filedocumented in this encounter
--- OUTSIDE RECORDS SUMMARY | 2025-06-14 13:29 | XMS_ITS | Encounter Summary ---
Author Organization [employer] ([place], [place], [place], [place]) Address [address] [place] [address] Care Team Providers Care Wash Helper Name Role Phone Unavailable Primary Care Provider Unavailabl e Encounter Details Date Type Department Care Team (Late st Contact Info) Description 11/15/2018 Transcribed Document [facility] [place] Family Medicine [address] [place] [address] ProviderErika MD [address] [place] [address] Social History Tobacco Use Types [...] Source : Measured Height Entry Format : [place] Height, Feet : 6 ft(Converted to: 183 cm, 72 Inch) Height, Inches : 1 Inch(Converted to: 0 ft 1 Inch, 2.54 cm) Clinical Height : 185.42 cm Weight Source : Standing scale Weight Entry Format : [place] Clinical Dosing Weight : 79.23 kg Weight, Pounds : 174 lb Weight, Ounces : 5 oz Body Surface Area (BSA) : 2.03 m2 Body Mass Index : 23 kg/m2 [place] Body Weight : 79 kg ANGELA KEY [...] Ambulatory Legal Guardian : Spouse Support Person/Patient Bellman : Yes Support Person/Pt Rep Name : Connie- Sumeet - son Support Person/Pt Rep Contact Information : [phone] home [phone] - cell Want Family/Rep/Phys Notified of Admit : No Emergency Contact #1 : Connie Emergency Contact #1 Emergency Contact #1 Relationship : Emergency Contact #2 : Sumeet Emergency Contact #2 Emergency Contact #2 Relationship : son Information Obtained From : Patient, Medical Record Primary Language : Jamaican Preferred Communication Mode : Verbal Communication Barrier [...] 11/15/2018 13:52 EDT Electronically signed by Parveen [facility] Conversion Drug And Alcohol Treatment Specialist Cerner at 12/08/2022 12:30 PM CDT documented in this encounter Plan of Treatment Not on file documented as of this encounter Visit Diagnoses Not on filedocumented in this encounter
--- OUTSIDE RECORDS SUMMARY | 2025-06-14 13:29 | XMS_ITS | Encounter Summary ---
Author Organization [employer] ([place], [place], [place], [place]) Address [address] [place] [address] Care Team Providers Care Housing Installer Name Role Phone Unavailable Primary Care Provider Unavailabl e Encounter Details Date Type Department Care Team (Late st Contact Info) Description 11/05/2018 Transcribed Document [facility] [place] [address] [place] [address] ProviderErika MD [address] [place] [address] Social History Tobacco Use Types [...] you are awake and alert. ??? Take eadl-zvj-ktdkqat and prescription medicines only as told by [...] 05/31/2014 Document Revised: 01/12/2017 Document Reviewed: 11/29/2016 [employer] Interactive Patient Education ? 2017 [employer] Pulmonary Medicine Radial Site Care Introduction [...] 01/11/2014 Elsevier Interactive Patient Education ? 2017 [employer] documented in this encounter Plan of Treatment Not on file documented as of this encounter Visit Diagnoses Not on filedocumented in this encounter
--- OUTSIDE RECORDS SUMMARY | 2025-06-14 13:29 | XMS_ITS | Encounter Summary ---
Author Organization [employer] ([place], [place], [place], [place]) Address [address] [place] [address] Care Team Providers Care Executive Associate Name Role Phone Unavailable Primary Care Provider Unavailabl e Encounter Details Date Type Department Care Team (Late st Contact Info) Description 11/16/2018 Transcribed Document [facility] [address] [place] [address] iNles Nunez MD [address] [place], [place] [id number] Social History Tobacco Use Types Packs/Day Years [...]
--- OUTSIDE RECORDS SUMMARY | 2025-06-14 13:29 | XMS_ITS | Encounter Summary ---
Author Organization [employer] ([place], [place], [place], [place]) Address [address] [place] [address] Care Team Providers Care Spoilage Worker Name Role Phone Unavailable Primary Care Provider Unavailabl e Encounter Details Date Type Department Care Team (Late st Contact Info) Description 11/21/2018 Transcribed Document [facility] [place] [address] [place] [address] ProviderErika MD [address] [place], [...]
--- OUTSIDE RECORDS SUMMARY | 2025-06-14 13:29 | XMS_ITS | Encounter Summary ---
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
--- OUTSIDE RECORDS SUMMARY | 2025-06-14 13:29 | XMS_ITS | Encounter Summary ---
Author Organization [employer] ([place], [place], [place], [place]) Address [address] [place] [address] Care Team Providers Care Resident Program Specialist Name Role Phone Unavailable Primary Care Provider Unavailabl e Encounter Details Date Type Department Care Team (Late st Contact Info) Description 11/28/[address] [facility] [place] [address] [place] [address] ProviderErika MD [address] [place] [address] Social History Tobacco Use Types [...] Jacob Coy MD Electronically signed by Parveen [facility] Conversion Shank Threader Cerner at 12/08/2022 12:31 PM CDT documented in this encounter Plan of Treatment Not on file documented as of this encounter Visit Diagnoses Not on filedocumented in this encounter
--- OUTSIDE RECORDS SUMMARY | 2025-06-14 13:29 | XMS_ITS | Encounter Summary ---
Author Organization [employer] ([place], [place], [place], [place]) Address [address] [place] [address] Care Team Providers Care Cable Operator Name Role Phone Unavailable Primary Care Provider Unavailabl e Encounter Details Date Type Department Care Team (Late st Contact Info) Description 11/28/2018 Transcribed Document [facility] [place] [address] [place] [address] ProviderErika MD [address] [place] [address] Social History Tobacco Use Types [...]
--- OUTSIDE RECORDS SUMMARY | 2025-06-14 13:29 | XMS_ITS | Encounter Summary ---
Author Organization [employer] ([place], [place], [place], [place]) Address [address] [place] [address] Care Team Providers Care Can Intake Worker Name Role Phone Unavailable Primary Care Provider Unavailabl e Encounter Details Date Type Department Care Team (Late st Contact Info) Description 11/16/2018 Transcribed Document [facility] [place] [facility] [place] [address] [place] [address] ProviderErika MD [address] [place] [address] Social History Tobacco Use Types [...] PROCEDURE: 1. Left radial arterial line. 2. Carmel-Jovanna catheter. SURGEON: Porfirio Gaxiola IV, MD Procedure [...] introducer was applied over guidewire, then a Carmel-Jovanna catheter was advanced down MAC introducer to [...]
--- OUTSIDE RECORDS SUMMARY | 2025-06-14 13:29 | XMS_ITS | Encounter Summary ---
Author Organization [employer] ([place], [place], [place], [place]) Address [address] [place] [address] Care Team Providers Care Fleet Technician Name Role Phone Unavailable Primary Care Provider Unavailabl e Encounter Details Date Type Department Care Team (Late st Contact Info) Description 11/26/2018 Transcribed Document [facility] [place] Family Medicine [address] [place] [address] ProviderErika MD [address] [place] [address] Social History Tobacco Use [...] On: 11/26/2018 9:15 EDT by JOSSUE RODRÍGUEZ SALVAGE MEND WORKER General Information Visit Type, SALVAGE MEND WORKER : Re-Evaluation Patient Orders : SALVAGE MEND WORKER Fxoliver Limitation Documentation x 1 -111 Start: 11/25/18 10:29:25 EDT - SYSTEM, SYSTEM Speech Language Pathology Modified Barium Swallow Study - Start: 11/26/18 7:00:00 EDT, Routine, For Other (see special instructions), Dysphagia -111 GISSEL ZHANG PA SALVAGE MEND WORKER Fxnl Limitation Documentation - Start: 11/20/18 9:37:47 EDT, Continuous Order -111 SYSTEM, SYSTEM Speech Language Pathology Additional Tx - Start: 11/20/18 9:36:00 EDT, For Dysphagia, Continuous Order -111 Admission Date : Admission Date/Time: 11/16/18 06:45:00 Medical Chart Reviewed, SALVAGE MEND WORKER : Yes Personal Devices : Personal Devices No Devices Recorded Assistive Devices : Assistive Devices No Devices Recorded Active Diagnoses : 11/23/2018 00:00 Cerebral infarction, unspecified 11/17/2018 00:00 Atherosclerotic heart disease of [place] coronary artery without angina pectoris 11/17/2018 00:00 Essential (primary) hypertension 11/17/2018 00:00 Hypothyroidism, unspecified 11/17/2018 00:00 Nonrheumatic aortic (valve) insufficiency 11/17/2018 00:00 Restless legs syndrome 11/17/2018 00:00 Thoracic aortic aneurysm, without rupture 11/17/2018 00:00 Thrombocytopenia, unspecified 11/16/2018 00:00 Atherosclerotic heart disease of [place] coronary artery without angina pectoris 11/16/2018 00:00 Nonrheumatic aortic (valve) insufficiency 11/16/2018 00:00 Thoracic aortic aneurysm, without rupture Therapy Diagnosis, SALVAGE MEND WORKER : functional oropharyngeal skills Previous Speech/Language Evaluations : N/A Previous Swallow Precautions : Bedside 11/20 recommended instrumental prior to initiating PO diet, FEES recommended reg/nectar. Pt has participated in tx and is ready for a repeat study Previous Cognitive Evaluations : this admit Diet/Intake Prior to Current Admission : Regular/thin Diet/Intake During Current Admission : reg/thin following MBS Intubation Comment, SALVAGE MEND WORKER : 11/16-11/17 Vital Signs RTF : Vitals [...] 9:15 EDT General Status Patient Received Status, SALVAGE MEND WORKER : Up in chair Patient Left Status, SALVAGE MEND WORKER : Up in chair JOSSUE RODRÍGUEZ SLP [...] Consistencies Trialed MB/VFSS : Thin by straw, Olga by straw, Pudding JOSSUE RODRÍGUEZ, ERIC - 11/26/2018 9:15 EDT Swallow Impressions Impressions, MBSS/VFSS : Functional swallow for oral intake JOSSUE RODRÍGUEZ SLP - 11/26/2018 9:15 EDT 8 Point Penetration/Aspiration Grid Thin by Straw : 1 Olga by Straw : 1 Pudding : 1 [...] Discussed briefly with CTS PA. JOSSUE RODRÍGUEZ, SALVAGE MEND WORKER - 11/26/2018 9:15 EDT Swallow Recommendations Recommended Diet Type, SwRec : Regular Recommended Liquid Diet, SwRec : Thin Swallow Position, SwRec : Upright 90 degrees Supervision Level w/Meals, SwRec : Independent, modified Recommended Med Present, SwRec : As per nursing JOSSUE RODRÍGUEZ SLP - 11/26/2018 9:15 EDT Therapy Indication Assessment SALVAGE MEND WORKER Indicated : No SALVAGE MEND WORKER Not Indicated : At prior level of function JOSSUE RODRÍGUEZ SLP - 11/26/2018 9:15 EDT Swallow Plan/Goals Swallow LTG Grid SALVAGE MEND WORKER Sql Engineer Goal #1 SALVAGE MEND WORKER Sql Engineer Goal #2 Swallow LTG : Establish safe [...] JOSSUE RODRÍGUEZ SLP - 11/26/2018 9:15 EDT SALVAGE MEND WORKER Education Assessment Grid 1 Aspiration : Needs further teaching Diet Recommendation : Needs further teaching JOSSUE RODRÍGUEZ SLP - 11/26/2018 9:[address] [facility] SALVAGE MEND WORKER Charges Modified Barium Swallow : 1 JOSSUE RODRÍGUEZ SLP - 11/26/2018 9:15 EDT documented in this encounter Plan of Treatment Not on file documented as of this encounter Visit Diagnoses Not on filedocumented in this encounter
--- OUTSIDE RECORDS SUMMARY | 2025-06-14 13:29 | XMS_ITS | Encounter Summary ---
Author Organization [employer] ([place], [place], [place], [place]) Address [address] [place] [address] Care Team Providers Care Pharmacologist Name Role Phone Unavailable Primary Care Provider Unavailabl e Encounter Details Date Type Department Care Team (Late st Contact Info) Description 11/05/2018 Transcribed Document [facility] [place] [address] [place] [address] ProviderErika MD [address] [place] [address] Social History Tobacco Use Types [...]
--- OUTSIDE RECORDS SUMMARY | 2025-06-14 13:29 | XMS_ITS | Encounter Summary ---
Author Organization [employer] ([place], [place], [place], [place]) Address [address] [place] [address] Care Team Providers Care Transformer Stock Clerk Name Role Phone Unavailable Primary Care Provider Unavailabl e Encounter Details Date Type Department Care Team (Late st Contact Info) Description 11/20/2018 Transcribed Document [facility] [place] [address] [place] [address] ProviderErika MD [address] [phone] Social History Tobacco Use Types Packs/Day Years [...] Bedtime, Routine HEENT saliva substitutes - 1 [place], Buccal, Liquid, Q2H, PRN for Other (See [...] Radiology results Radiology Results (Last 48 hours) [id number] -- 11/16/2018 06:45 CR Chest 1 Vw [...] Shortness of breathCOMPARISON: 1 day priorFINDINGS: A Alvord-Jovanna catheter tip terminates in the SVC. The Alvord-Ganzcatheter has been retracted. The cardiac silhouette is [...]
--- OUTSIDE RECORDS SUMMARY | 2025-06-14 13:29 | XMS_ITS | Encounter Summary ---
Author Organization [employer] ([place], [place], [place], [place]) Address [address] [place] [address] Care Team Providers Care Associate Director Of Biostatistics Name Role Phone Unavailable Primary Care Provider Unavailabl e Encounter Details Date Type Department Care Team (Late st Contact Info) Description 11/16/[address] [facility] [place] Family Medicine [address] [place] [address] ProviderErika MD [address] [place] [address] Social History Tobacco Use Types [...]
--- OUTSIDE RECORDS SUMMARY | 2025-06-14 13:29 | XMS_ITS | Encounter Summary ---
Author Organization [employer] ([place], [place], [place], [place]) Address [address] [place] [address] Care Team Providers Care Groover And Striper Operator Name Role Phone Unavailable Primary Care Provider Unavailabl e Encounter Details Date Type Department Care Team (Late st Contact Info) Description 11/05/2018 Transcribed Document [facility] Cardiology [address] [place] [address] Lc Armendariz MD [address] [facility] [address] [place] [address] Social History Tobacco Use Types [...] 1940 Associated Diagnoses: None Author: LC ARMENDARIZ [facility] Basic Information PCP: Sanjuana Valdez Cardiology; [...] All Problems Prostate stricture / SNOMED CT 99698829 / Confirmed HTN - Hypertension / SNOMED CT 8119724148 / Confirmed Hypothyroidism / SNOMED CT 34639694 / Confirmed Aneurysm / SNOMED CT 4009628078 / Confirmed Disorder of prostate / SNOMED CT 96549082 / Confirmed Thyroid disease / SNOMED CT 869831847 / Confirmed Restless legs syndrome / SNOMED CT 19349834 / Confirmed Cancer of skin of face / SNOMED CT 1926351762 / Confirmed At risk for sleep apnea / IMO 68410695 / Confirmed Resolved: Bladder stone / SNOMED CT 871636863 Histories No education data available. Social & Psychosocial Habits Alcohol 04/16/2017 Alcohol Use History, Social Habits No Alcohol Use in Last Twelve Months No Substance Abuse 04/16/2017 Recreational Drug Use History No Recreational Drug Use Last 12 Months No Tobacco 04/16/2017 Smoking Status Never smoker Past Medical History: Active HTN - Hypertension (4670870377) Hypothyroidism (00020465) Family History: Entire family history is negative. [...] of motion, Normal strength. Integumentary: Warm, Dry, [place]. Neurologic: Alert, Oriented. Psychiatric: Cooperative. Review / [...]
--- OUTSIDE RECORDS SUMMARY | 2025-06-14 13:29 | XMS_ITS | Encounter Summary ---
Author Organization [employer] ([place], [place], [place], [place]) Address [address] [place] [address] Care Team Providers Care Plate Printer Name Role Phone Unavailable Primary Care Provider Unavailabl e Encounter Details Date Type Department Care Team (Late st Contact Info) Description 11/28/2018 Transcribed Document [facility] [place] [address] [place] [address] ProviderErika MD [address] [place] [address] Social History Tobacco Use Types [...]
--- OUTSIDE RECORDS SUMMARY | 2025-06-14 13:29 | XMS_ITS | Encounter Summary ---
Author Organization [employer] ([place], [place], [place], [place]) Address [address] [place] [address] Care Team Providers Care Utility Appraiser Name Role Phone Unavailable Primary Care Provider Unavailabl e Encounter Details Date Type Department Care Team (Late st Contact Info) Description 11/26/2018 Transcribed Document [facility] [place] [address] [place] [address] ProviderErika MD [address] [place] [address] Social History Tobacco Use Types [...]
--- OUTSIDE RECORDS SUMMARY | 2025-06-14 13:30 | XMS_ITS | Encounter Summary ---
Author Organization [employer] ([place], [place], [place], [place]) Address [address] [place] [address] Care Team Providers Care Concrete Bucket Unloader Name Role Phone Unavailable Primary Care Provider Unavailabl e Encounter Details Date Type Department Care Team (Late st Contact Info) Description 11/27/2018 Transcribed Document [facility] [place] [address] [place] [address] ProviderErika MD [address] [place] [address] Social History Tobacco Use Types [...]
--- OUTSIDE RECORDS SUMMARY | 2025-06-14 13:30 | XMS_ITS | Encounter Summary ---
Author Organization [employer] ([place], [place], [place], [place]) Address [address] [place] [address] Care Team Providers Care Recycling Tech Name Role Phone Unavailable Primary Care Provider Unavailabl e Encounter Details Date Type Department Care Team (Late st Contact Info) Description 11/19/2018 Transcribed Document [facility] Cardiology [address] [place] [address] Lc Armendariz MD [address] [facility] [address] [place] [address] Social History Tobacco Use Types [...] mg, Oral, At Bedtime saliva substitutes: 1 [place], Buccal, Q2H, PRN: Other (See Comment) sodium [...] of motion, Normal strength. Integumentary: Warm, Dry, [place]. Neurologic: Alert, Oriented. Psychiatric: Cooperative, Appropriate mood & affect. Results Review NOV 19 04:08 138 105 21 / H 184 4.0 28 0.70 \ NOV 19 04:08 \ L 10.0 / H 15.0 L 101 / L 30.3 \ Radiology Results (Last 48 hours) [id number] -- 11/16/2018 06:45 CR Chest 1 Vw [...]
--- OUTSIDE RECORDS SUMMARY | 2025-06-14 13:30 | XMS_ITS | Encounter Summary ---
Author Organization [employer] ([place], [place], [place], [place]) Address [address] [place] [address] Care Team Providers Care Curator Of Collections Name Role Phone Unavailable Primary Care Provider Unavailabl e Encounter Details Date Type Department Care Team (Late st Contact Info) Description 11/27/2018 Transcribed Document [facility] [place] [address] [place] [address] ProviderErika MD [address] [place], [place] [phone] Social History Tobacco Use Types Packs/Day Years Used Date Smoking Tobacco: Never Assessed Sex and Gender Information Value Date Recorded Sex Assigned at Not on file Legal Sex Male 5:03 PM CDT Gender Identity Not on file Sexual Orientation Not on file documented as of this encounter Miscellaneous Notes * Cerner Conversion Note - Historical ProviderMD - 11/27/2018 2:00 AM CDT Build And Deployment Engineer Details Entered On: 11/27/2018 3:00 EDT Performed [...]
--- OUTSIDE RECORDS SUMMARY | 2025-06-14 13:30 | XMS_ITS | Encounter Summary ---
Author Organization [employer] ([place], [place], [place], [place]) Address [address] [place] [address] Care Team Providers Care Card Puncher Name Role Phone Unavailable Primary Care Provider Unavailabl e Encounter Details Date Type Department Care Team (Late st Contact Info) Description 11/05/2018 Transcribed Document [facility] [place] [address] [place] [address] ProviderErika MD [address] [place] [address] Social History Tobacco Use Types [...] 11/05/2018 12:46 EDT Electronically signed by Parveen [facility] Conversion Expeller Worker Cerner at 12/08/2022 12:20 PM CDT documented in this encounter Plan of Treatment Not on file documented as of this encounter Visit Diagnoses Not on filedocumented in this encounter
--- OUTSIDE RECORDS SUMMARY | 2025-06-14 13:30 | XMS_ITS | Encounter Summary ---
Author Organization [employer] ([place], [place], [place], [place]) Address [address] [place] [address] Care Team Providers Care Experience Planning Strategist Name Role Phone Unavailable Primary Care Provider Unavailabl e Encounter Details Date Type Department Care Team (Late st Contact Info) Description 11/26/[address] [facility] [place] [address] [place] [address] ProviderErika MD [address] [place], [place] [phone] Social History Tobacco Use Types Packs/Day Years [...] swelling - improved today. Integumentary: Warm, Dry, [place], incision is C/D/I. Neurologic: Alert, left sided [...] CM has sent information to [facility] -Transfer to [facility] 11/24/18 -POD#8 -Awaiting transfer to [facility] -Awaiting response from [facility] 11/25/18 -left upper extremity venous doppler - doppler this am positive for LUE DVT - will start coumadin and heparin bridge -awaiting [facility] 11/26/18 -Heparin drip and coumadin for LUE DVT Left arm swelling improved today INR 1.1 today, INR goal 2-3 Possibly transfer to [facility] this weekend EF 55-60% per echo [...]
--- OUTSIDE RECORDS SUMMARY | 2025-06-14 13:30 | XMS_ITS | Encounter Summary ---
Author Organization [employer] ([place], [place], [place], [place]) Address [address] [place] [address] Care Team Providers Care Senior Care Manager Name Role Phone Unavailable Primary Care Provider Unavailabl e Encounter Details Date Type Department Care Team (Late st Contact Info) Description 11/19/[address] [facility] [place] Medicine [address] [place] [address] ProviderErika MD [address] [place], [...] TF regimen to add fiber. EST NEEDS: 9362-2612 kcal (25-30kcal/kg), 95g pro (1.2g/kg) 1. Change TF to Jevity 1.5 @ 60 ml/hr + 1 bottle [id number] daily (Provides 2040 kcal; 99 gm pro) Goal: meet est needs 2. Monitor alertness and appropriateness for DELI ASSOCIATE eval Goal: est safe po diet 3. Weigh pt 2x weekly Goal: no sig weight changes High Risk [address]ION [address], LD - 11/19/2018 12:43 EDT Electronically signed by Parveen, [facility] Conversion Strategic Debriefing Specialist Cerner at 12/08/2022 12:18 PM CDT documented in this encounter Plan of Treatment Not on file documented as of this encounter Visit Diagnoses Not on filedocumented in this encounter
--- OUTSIDE RECORDS SUMMARY | 2025-06-14 13:30 | XMS_ITS | Encounter Summary ---
Author Organization [employer] ([place], [place], [place], [place]) Address [address] [place] [address] Care Team Providers Care Roving Inspector Name Role Phone Unavailable Primary Care Provider Unavailabl e Encounter Details Date Type Department Care Team (Late st Contact Info) Description 11/27/2018 Transcribed Document [facility] [place] [address] [place] [address] ProviderErika MD [address] [place] [address] Social History Tobacco Use Types [...]
--- OUTSIDE RECORDS SUMMARY | 2025-06-14 13:30 | XMS_ITS | Encounter Summary ---
Author Organization [employer] ([place], [place], [place], [place]) Address [address] [place] [address] Care Team Providers Care Preschool Assistant Name Role Phone Unavailable Primary Care Provider Unavailabl e Encounter Details Date Type Department Care Team (Late st Contact Info) Description 11/19/2018 Transcribed Document [facility] [place] Family Medicine [address] [place] [address] ProviderErika MD [address] [place], [place] [phone] Social History Tobacco Use Types Packs/Day Years [...] 1940 Associated Diagnoses: CAD (coronary artery disease), [place] coronary artery; Thrombocytopenia; Coronary artery disease; HTN [...] S1, S2, No edema. Integumentary: Warm, Dry, [place], incision is C/D/I, He did not follow [...] Prophylaxis: SCDs Diagnosis CAD (coronary artery disease), [place] coronary artery - Admitting, Medical. Thrombocytopenia - [...]
--- OUTSIDE RECORDS SUMMARY | 2025-06-14 13:30 | XMS_ITS | Encounter Summary ---
Author Organization [employer] ([place], [place], [place], [place]) Address [address] [place] [address] Care Team Providers Care Analytics Associate Name Role Phone Unavailable Primary Care Provider Unavailabl e Encounter Details Date Type Department Care Team (Late st Contact Info) Description 11/05/2018 Transcribed Document [facility] [place] Family Medicine [address] [place] [address] ProviderErika MD [address] [place] [address] Social History Tobacco Use Types [...]
--- OUTSIDE RECORDS SUMMARY | 2025-06-14 13:30 | XMS_ITS | Encounter Summary ---
Author Organization [employer] ([place], [place], [place], [place]) Address [address] [place] [address] Care Team Providers Care Payroll And Benefits Coordinator Name Role Phone Unavailable Primary Care Provider Unavailabl e Encounter Details Date Type Department Care Team (Late st Contact Info) Description 11/27/2018 Transcribed Document [facility] [place] [address] [place] [address] ProviderErika MD [address] [place], [place] [phone] Social History Tobacco Use Types Packs/Day Years [...] 1940 Associated Diagnoses: CAD (coronary artery disease), [place] coronary artery; Thrombocytopenia; Coronary artery disease; HTN [...] swelling - improved today. Integumentary: Warm, Dry, [place], incision is C/D/I. Neurologic: Alert, Oriented, left [...] time of discharge- has sent information to [facility] -Transfer to [facility] 11/24/18 -POD#8 -Awaiting transfer to [facility] -Awaiting response from [facility] 11/25/18 -left upper extremity venous doppler - doppler this am positive for LUE DVT - will start coumadin and heparin bridge -awaiting [facility] 11/26/18 -Heparin drip and coumadin for LUE DVT Left arm swelling improved today INR 1.1 today, INR goal 2-3 Possibly transfer to [facility] this weekend 11/27/18: Left arm swelling continues to improve Continues on Coumadin and heparin bridge INR: 1.4 (1.1 yesterday) goal: 2 to 3 [facility] soon,? Tomorrow EF 55-60% per echo 11/16/18 DVT Prophylaxis: SCDs Diagnosis CAD (coronary artery disease), [place] coronary artery - Admitting, Medical. Thrombocytopenia - [...]
--- OUTSIDE RECORDS SUMMARY | 2025-06-14 13:30 | XMS_ITS | Encounter Summary ---
Author Organization [employer] ([place], [place], [place], [place]) Address [address] [place] [address] Care Team Providers Care Prevocational/Rehabilitation Counselor Name Role Phone Unavailable Primary Care Provider Unavailabl e Encounter Details Date Type Department Care Team (Late st Contact Info) Description 11/26/2018 Transcribed Document [facility] [place] [address] [place] [address] ProviderErika MD [address] [place], [place] [...] on 11/25/18) followed up with [facility] today regarding possible admission - plan [...] Care Management Note Report : LUCIE, ODALYS, Rn-Tobacco Scrap Sifter - 11/24/18 13:22:19 11/24/[address]ra from [facility] called to let me know they started a precert on this pt. CF ODALYS FAULKNER, Rn-Tobacco Scrap Sifter - 11/22/18 13:56:32 11/22/18 Pt has had a cva. Spoke to his Connie and son Sumeet at the bedside. Pt is lfacid on the left side. Discussed the need for STR and they decided on [facility]. Sent pt info via [employer] to [facility]. CF Documentation Status Complete : Yes ANGELA NAIR, Equipment Operat0R - 11/26/2018 11:16 EDT Electronically signed by Parveen [facility] Conversion Ground Transportation Operator Cerner at 12/08/2022 12:12 PM CDT documented in this encounter Plan of Treatment Not on file documented as of this encounter Visit Diagnoses Not on filedocumented in this encounter
== END 2025-06-14 23:59 | disposition home or self-care (01) ==
LOC: INF 12:48
PROVIDERS: PCP Internal Medicine; Visit Provider Internal Medicine
DX: N39.0 Urinary tract infection, site not specified (principal); B96.20 Unspecified Escherichia coli [E. coli] as the cause of diseases classified elsewhere; Z16.12 Extended spectrum beta lactamase (ESBL) resistance
CPT/HCPCS: 96372; J1335

== ENCOUNTER 2025-06-15 13:17 | Outpatient (CLI) | payer MEDICARE, SELFPAY ==
[2025-06-15 13:42] VITALS: BP 189/93; PULSE 73; RESP 20; TEMP 36.7; O2SAT 98
[2025-06-15] MEDS: ERTAPENEM SODIUM 1 GM VIAL IM (13:42)
--- OUTSIDE RECORDS SUMMARY | 2025-06-15 14:14 | XMS_ITS | Data Portability ---
Author Organization LIZ XIMENA Leavitt HELENA CLOSED Address [address] [facility] [place] [address] Assessment Encounter Date Assessment Date Assessment LastModified by Organization Details LastModified Time 07/01/2023 07/01/2023 PREOPERATIVE DIAGNOSIS: Bladder calculus, 13 mm. POSTOPERATIVE DIAGNOSIS: Bladder calculus, 13 mm with BPH. PROCEDURE: Cystolitholapaxy with dilation of distal urethra. 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 SURGEON: Cong Villasenor MD ANESTHESIA: General. DRAINS: 18-Syrian urethral Michele catheter. INDICATIONS: Patient with previous [...] prepped and draped in normal fashion. A 22-Syrian cystoscopy sheath was introduced. Pendulous urethra revealed some difficulty introducing at the meatus. I then used the Austin sounds to dilate the distal urethra up to 24-Syrian. I then easily advanced down the urethra. [...] Lab urinalysis , dipstick, auto 2018 019 [facility] Extended Services With [facility], [address], [address] [place] [address], [address], 9 08:09:21 urinalysis , dipstick, auto 2018 019 [facility], [address], [place] [address], [place], [address], 9 14:02:35 Referral None recorded. Procedures None recorded. Surgeries None recorded. Imaging None recorded. Medication Orders trospium ER 60 mg capsule,ex tended release 24 hr 2022 023 [facility] [address] [place], [address], 3 14:33:52 alfuzosin ER 10 mg tablet,ext ended release 24 hr 2018 019 [facility] [address], [address] [place], [address], 9 15:32:14 Patient TargetsNo targets recorded. Patient Instructions Encounter Date Encounter Id Patient Instructions Last Modified By Organization Details Last Modified Time 05/16/2019 [id number] At this point given the patient's comorbid [...] weeks. [email or web address] Not available 05/16/2019 14:03:13 06/27/2019 [id number] continue medical therapy [email or web address] Not available 06/29/2019 08:09:20 Reason for Referral None Reported. Results Created Date Observation Date Name Description Value Unit Range Abnormal Flag Note LastModifiedBy Organization Detail LastModifiedTime 06/27/2006/27/2019 urina lysis , dipst ick, auto Unknown Analyte Yellow Not Available [facility] Extended Services With [address], [place], [address], 06/27/2019 15:52:46 06/27/2006/27/2019 urina lysis , dipst ick, auto Unknown Analyte Clear Not Available [facility] Extended Services With [place] [address] [facility] [address], [place], [address], 06/27/2019 15:52:46 06/27/20 19 06/27/2019 urina lysis , dipst ick, auto Unknown Analyte 1.010 Not Available [facility] Extended Services With [place] [address], [place], [address], 06/27/2019 15:52:46 06/27/20 19 06/27/2019 urina lysis , dipst ick, auto Unknown Analyte 1.003 - 1.035 Not Available [facility] [address], [place], [address], 06/27/2019 15:52:46 06/27/20 19 06/27/2019 urina lysis , dipst ick, auto Unknown Analyte 7.0 Not Available [facility] Extended Services With [place] [address] [facility] [address], [place], [address], 06/27/2019 15:52:46 06/27/20 19 06/27/2019 urina lysis , dipst ick, auto Unknown Analyte 5.0 - 8.0 Not Available [facility] [place] [facility] With [facility] [address], [place], [address], 06/27/2019 15:52:46 06/27/20 19 06/27/2019 urina lysis , dipst ick, auto Unknown Analyte Negati ve Not Available [facility] [place] [facility] With [facility] [address], [place], [address], 06/27/2019 15:52:46 06/27/20 19 06/27/2019 urina lysis , dipst ick, auto Unknown Analyte Negati ve Not Available [facility] [place] [facility] [address], [place], [address], 06/27/2019 15:52:46 06/27/20 19 06/27/2019 urina lysis , dipst ick, auto Unknown Analyte Negati ve Not Available [facility] [place] [facility] [address], [place], [address], 06/27/2019 15:52:46 06/27/2006/27/2019 urina lysis , dipst ick, auto Unknown Analyte Negati ve Not Available [facility] [place] [facility] With [facility] [address], [place], [address], 06/27/2019 15:52:46 06/27/20 19 06/27/2019 urina lysis , dipst ick, auto Unknown Analyte Negtiv e Not Available [facility] [place] [facility] With [facility] [address], [place], [address], 06/27/2019 15:52:46 06/27/20 19 06/27/2019 urina lysis , dipst ick, auto Unknown Analyte Negati ve - Trace Not Available [facility] [place] [facility] [address], [place], [address], 06/27/2019 15:52:46 06/27/20 19 06/27/2019 urina lysis , dipst ick, auto Unknown Analyte Normal Not Available [facility] [place] [facility] With [facility] [address], [place], [address], 06/27/2019 15:52:46 06/27/20 19 06/27/2019 urina lysis , dipst ick, auto Unknown Analyte Normal Not Available [facility] [place] [facility] [address], [place], [address], 06/27/2019 15:52:46 06/27/20 19 06/27/2019 urina lysis , dipst ick, auto Unknown Analyte Negati ve Not Available [facility] [place] [facility] [address], [place], [address], 06/27/2019 15:52:46 06/27/20 19 06/27/2019 urina lysis , dipst ick, auto Unknown Analyte Negati ve Not Available [facility] [place] [facility] [address], [place], [address], 06/27/2019 15:52:46 06/27/20 19 06/27/2019 urina lysis , dipst ick, auto Unknown Analyte Normal Not Available [facility] [place] [facility] With [facility] [address], [place], [address], 06/27/2019 15:52:46 06/27/20 19 06/27/2019 urina lysis , dipst ick, auto Unknown Analyte Normal - 1mg/dl Not Available [facility] [place] [facility] [address], [place], [address], 06/27/2019 15:52:46 06/27/2006/27/2019 urina lysis , dipst ick, auto Unknown Analyte Negati ve Not Available [facility] [place] [facility] [address], [place], [address], 06/27/2019 15:52:46 06/27/2006/27/2019 urina lysis , dipst ick, auto Unknown Analyte Negati ve Not Available [facility] [place] [facility] [address], [place], [address], 06/27/2019 15:52:46 06/27/20 19 06/27/2019 urina lysis , dipst ick, auto Unknown Analyte Negati ve Not Available [facility] [place] [facility] [address], [place], [address], 06/27/2019 15:52:46 06/27/2006/27/2019 urina lysis , dipst ick, auto Unknown Analyte Negati ve Not Available [facility] [place] [facility] [address], [place], [address], 06/27/2019 15:52:46 06/27/20 19 06/27/2019 urina lysis , dipst ick, auto Unknown Analyte Clean Catch Not Available [facility] [place] [facility] [address] [facility] [address], [place], [address], 06/27/2019 15:52:46 06/27/20 19 06/27/2019 urina lysis , dipst ick, auto Unknown Analyte Automa jamshid Not Available [facility] [place] [facility] [address] [facility] [address], [place], [address], 06/27/2019 15:52:46 05/16/20 19 05/16/2019 urina lysis , dipst ick, auto Unknown Analyte Yellow Not Available [facility] [place] [facility] With [facility] [address] [facility] [address], [place], [address], 05/16/2019 13:23:16 05/16/20 19 05/16/2019 urina lysis , dipst ick, auto Unknown Analyte Clear Not Available [facility] [place] [facility] [address] [facility] [address], [place], [address], 05/16/2019 13:23:16 05/16/20 19 05/16/2019 urina lysis , dipst ick, auto Unknown Analyte 1.020 Not Available [facility] With [facility] [address] [facility] [address], [place], [address], 05/16/2019 13:23:16 05/16/2005/16/2019 urina lysis , dipst ick, auto Unknown Analyte 1.003 - 1.035 Not Available [facility] [place] [facility] [address] [facility] [address], [place], [address], 05/16/2019 13:23:16 05/16/20 19 05/16/2019 urina lysis , dipst ick, auto Unknown Analyte 5.0 Not Available [facility] [place] [facility] With [facility] [address] [facility] [address], [place], [address], 05/16/2019 13:23:16 05/16/20 19 05/16/2019 urina lysis , dipst ick, auto Unknown Analyte 5.0 - 8.0 Not Available [facility] [place] [facility] [address], [place], [address], 05/16/2019 13:23:16 05/16/20 19 05/16/2019 urina lysis , dipst ick, auto Unknown Analyte Negati ve Not Available [facility] [place] [facility] [address], [place], [address], 05/16/2019 13:23:16 05/16/20 19 05/16/2019 urina lysis , dipst ick, auto Unknown Analyte Negati ve Not Available [facility] [place] [facility] [address], [place], [address], 05/16/2019 13:23:16 05/16/20 19 05/16/2019 urina lysis , dipst ick, auto Unknown Analyte Negati ve Not Available [facility] [place] [facility] [address], [place], [address], 05/16/2019 13:23:16 05/16/20 19 05/16/2019 urina lysis , dipst ick, auto Unknown Analyte Negati ve Not Available [facility] [place] [facility] With [facility] [address], [place], [address], 05/16/2019 13:23:16 05/16/20 19 05/16/2019 urina lysis , dipst ick, auto Unknown Analyte Negtiv e Not Available [facility] [place] [facility] With [facility] [address], [place], [address], 05/16/2019 13:23:16 05/16/20 19 05/16/2019 urina lysis , dipst ick, auto Unknown Analyte Negati ve - Trace Not Available [facility] [place] [facility] [address], [place], [address], 05/16/2019 13:23:16 05/16/20 19 05/16/2019 urina lysis , dipst ick, auto Unknown Analyte Normal Not Available [facility] With [facility] [address], [place], [address], 05/16/2019 13:23:16 05/16/20 19 05/16/2019 urina lysis , dipst ick, auto Unknown Analyte Normal Not Available [facility] With [facility] [address], [place], [address], 05/16/2019 13:23:16 05/16/20 19 05/16/2019 urina lysis , dipst ick, auto Unknown Analyte 15 mg/dl (Sm) Not Available [facility] Extended Services With [facility] [address], [place], [address], 05/16/2019 13:23:16 05/16/20 19 05/16/2019 urina lysis , dipst ick, auto Unknown Analyte Negati ve Not Available [facility] With [facility] [address], [place], [address], 05/16/2019 13:23:16 05/16/20 19 05/16/2019 urina lysis , dipst ick, auto Unknown Analyte Normal Not Available [facility] With [facility] [address], [place], [address], 05/16/2019 13:23:16 05/16/20 19 05/16/2019 urina lysis , dipst ick, auto Unknown Analyte Normal - 1mg/dl Not Available [facility] [place] [facility] With [facility] [address], [place], [address], 05/16/2019 13:23:16 05/16/20 19 05/16/2019 urina lysis , dipst ick, auto Unknown Analyte Negati ve Not Available [facility] [place] [facility] [address], [place], [address], 05/16/2019 13:23:16 05/16/20 19 05/16/2019 urina lysis , dipst ick, auto Unknown Analyte Negati ve Not Available [facility] [place] [facility] [address], [place], [address], 05/16/2019 13:23:16 05/16/20 19 05/16/2019 urina lysis , dipst ick, auto Unknown Analyte Negati ve Not Available [facility] [place] [facility] [address], [place], [address], 05/16/2019 13:23:16 05/16/20 19 05/16/2019 urina lysis , dipst ick, auto Unknown Analyte Negati ve Not Available [facility] [place] [facility] [address], [place], [address], 05/16/2019 13:23:16 05/16/20 19 05/16/2019 urina lysis , dipst ick, auto Unknown Analyte Clean Catch Not Available [facility] [place] [facility] [address], [place], [address], 05/16/2019 13:23:16 05/16/20 19 05/16/2019 urina lysis , dipst ick, auto Unknown Analyte Automa jamshid Not Available [facility] [place] [facility] [address], [place], [address], 05/16/2019 13:23:16 07/01/20 23 07/07/2023 STONE GERMAINE SIS composition SEE BELOW normal Calci um Oxala te Dihyd rate (Wedd ellit e) 15% Calci um Oxala te Monoh ydrat e (Whew ellit e) 70% Carbo stephany Apati te (Dahl lite) 15% See Note 1 Not Available [facility] [address] [place] [address], [address], 07/07/2023 18:14:54 07/01/2007/07/2023 STONE GERMAINE SIS weight [...] Not Available [facility] [address] [place], [address], 07/07/2023 18:14:54 Result Notes None recorded. Problems Name Problem SNOMED Code Status Onset Date Resolution Date Notes Provider Name and Address Organization Details Recorded Time Lower urinary tract symptoms due to benign prostatic hypertrophy 9389606945108 1 Active 2018 LEYLA SHAH JR, MD [address] [place] [address], [address] , [facility] 9 11:50:21 Increased frequency of urination 341844232 Active 2018 LEYLA SHAH JR, MD [address] [place] [address], [address], [facility] 9 20:29:31 Nocturia 661294240 Active 2018 LEYLA SHAH JR, MD [address] [place] [address], [address], [facility] 9 20:29:35 Problem Notes None recorded. Procedures Surgical History Date Name Laterality Status Provider Name and Address Organization Details Recorded Time 03/02/20 19 Post Void Residual; Ultrasound completed Rima Ivory [facility] 03/02/2019 11:46:22 04/16/20 17 MEATOTOMY, EXCEPT IN (SURG) completed CONG VILLASENOR MD [address] [place] [address], [address], [facility] 04/29/2017 10:19:09 Heart Surgery completed Deseriee [place] [facility] 03/02/2019 11:35:52 cholecystectomy completed [facility] 05/19/2023 16:19:30 Hernia Repair completed [facility] 05/19/2023 16:19:41 Prostate Surgery completed [facility] [place] [facility] 05/19/2023 16:19:58 Urinary Bladder completed [facility] 05/19/2023 16:20:09 Imaging Results None recorded. [...] 2022 active son requests Rx changed to [facility] as pt will not be returning to [facility], so Rx called to new pharmacy [...] Updated DateTime 05/16/2019 185.42 cm 21.1 kg/m2 71596.78 [facility] 05/16/2019 13:22:42 Date Recorded Body height Systolic And Diastolic Provider Name and Address Organization Details Last Updated DateTime 06/27/2019 185.42 cm 143/77 mm[Hg] [facility] 06/27/2019 15:52:00 Date Recorded Body height Body mass index (BMI) Body weight Provider Name and Address Organization Details Last Updated DateTime 07/08/2023 182.88 cm 29.8 kg/m2 65399.32 g John Emanuel [facility] 07/08/2023 13:21:37 Social History Question Answer Notes LastModified by Organizat ion Details LastModified Time Tobacco Smoking Status [facility]oker [facility] 03/02/2019 11:35:35 Marital Status Informatio n not available 03/02/2019 What Was The Date Of Your Most Recent Tobacco Screening? 03/02/2019 Information not available 10/11/2019 What Is Your Relationship Status? Information not available 05/19/2023 Has Tobacco Cessation Counseling Been Provided? No [email or web address] Information not available 05/19/2023 Sex: Unknown Functional Status Question Answer Note LastModified by Organizat ion Details LastModified Time Do you use any illicit or recreational drugs? No [email or web address] Information not available 05/19/2023 Do you or have you ever used any other forms of tobacco or nicotine? No [email or web address] Information not available 05/19/2023 What is your level of alcohol consumption? 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 Family History Relationship Description Onset Age of this Age Resolved Age Notes LastModified by Organization Details LastModified Time Unspecified Relation Family history of malignant neoplasm colon cancer [email or web address] Not available 05/19/2023 16:18:41 Unspecified Relation Kidney stone [email or web address] Not available 05/2019 11:35:27 Medical History Condition Response Cardiac Disease Y Other Y Arthritis Y High Cholesterol Y High PSA Y Heart Attack (IA) Y Cancer Y Urinary Tract Infection Y Stroke Y Hypertension Y Kidney Disease Y Past Encounters Encounter ID Performer Location Encounter Start Date Encounter Closed Date Diagnosis/Indication Diagnosis SNOMED-CT Code Diagnosis ICD10 Code Diagnosis IMO Codes Diagnosis Note [id number] LEYLA SHAH JR, MD [address] [place] [address] 03/02/2019 11:00:32 03/07/2019 10:05:38 Lower urinary tract symptoms due to benign prostatic hypertrophy 4889741668 9101 N40.1 Increased frequency of urination 480101603 R35.0 Nocturia 622954931 R35.1 [id number] LEYLA SHAH JR, MD [facility] [address] [facility] [address] [place] [address] 05/16/2019 13:05:53 05/18/2019 08:09:55 Lower urinary tract symptoms due to benign prostatic hypertrophy 5513473001 9101 N40.1 [id number] LEYLA SHAH JR, MD [facility] [address] [facility] [address] [place] [address] 06/27/2019 14:58:19 06/30/2019 11:19:02 Lower urinary tract symptoms due to benign prostatic hypertrophy 2594803454 9101 N40.1 Nocturia 574583003 R35.1 [id number] MD JONES FONTANEZ [facility] [address] [place] [address] 05/19/2023 14:49:48 05/19/2023 16:47:49 Urinary bladder stone 43695237 N21.0 follow upp 2 months , earlier if necessary [id number] CONG VILLASENOR MD SURGERY SCHEDULE [address] [place] [address] 07/01/2023 10:05:11 07/01/2023 10:05:30 [id number] MD JONES FONTANEZ [facility] [address] [place] [address] 07/08/2023 13:06:58 07/08/2023 14:09:02 Urinary bladder stone 62363945 N21.0 follow upp 2 months , earlier if necessary, he will complete his antibiotic s Increased frequency of urination 357995649 R35.0 as above Health Concerns Section Related Observation LastModified by Organization Detai ls LastModified Time None Recorded Concern Status LastModified by Organization Details LastModified Time None Recorded Advance Directives Directive None Recorded Payers Insurance Date Sequence Insurance Name Policy Number Policy Mullen Covered Member ID Mullen Member ID Guarantor Name 05/19/2023 1 [place] Jorge Villasenor [id number] Jorge Pickering Fernando 09/06/2023 1 [employer] (MEDICARE REPLACEMENT/A DVANTAGE - PPO) Jorge Pickering Fernando [id number] Jorge Pickering Fernando Notes Date Note Type [...] of 9.3. LEYLA SHAH JR, MD [address] [place], [address], [facility] 05/16/2019 14:03:31 06/27/2019 text/html Patient is in [...] is somewhat improved. LEYLA SHAH JR, MD [address] [place] [address], [address], [facility] 06/29/2019 08:09:36 05/19/2023 text/html pt with h/o [...] it. HE had a Resume treatment in [place] about 3 years ago[address] I reviewed ct scan disc for [facility] CONG VILLASENOR MD [address] [place] [address] [place], [address], [facility] 05/21/2023 11:32:44 07/08/2023 text/html Patient is here [...] had recent cystoscopy. CONG VILLASENOR MD [address] [place], [address], [facility] 07/08/2023 14:34:03
--- OUTSIDE RECORDS SUMMARY | 2025-06-15 14:14 | XMS_ITS | Clinical Summary ---
Author Organization [facility] Address [address] [place] [address] Phone Care Team Providers Care Android Platform Developer Name Role Phone Svitlana Manley MD Primary [...] [place] A [place] B Care Teams Android Platform Developer Relationship Specialty Start Date End Date Svitlana Manley MD [address] [place] [phone] PCP - General Family Medicine 04/10/16
--- OUTSIDE RECORDS SUMMARY | 2025-06-15 14:14 | XMS_ITS | Encounter Summary ---
Author Organization Healthcare Address [address] [place] [address] Care Team Providers Care Computational Chemist Name Role Phone Sanjuana Valdez APRN Primary Care Provider [phone] Clifford Horner MD Primary Care Provider [phone] Encounter Details Date Type Department Care Team (Late st Contact Info) Description 06/02/2022 Community [facility] [address] [place] [address] Joanna Zamora, DPM [address] [place], [place] [id number] Contracture of left ankle (Primary Dx); Contracture [...] foot documented in this encounter Care Teams Computational Chemist Relationship Specialty Start Date End Date Sanjuana Valdez APRN [address] [place] [address] PCP - General 01/04/21 07/13/24 Clifford Horner MD [address] [place] [address] PCP - General 07/14/24 documented as of this encounter
--- OUTSIDE RECORDS SUMMARY | 2025-06-15 14:14 | XMS_ITS | Clinical Summary ---
Author Organization [facility] Address [address] [place] [address] Care Team Providers Care Coffee Bar Attendant Name Role Phone Clifford Horner MD Primary Care Provider [phone] Allergies No known active allergies Medications dutasteride [...] r (1 - 1-dose 75+ series) 2014 [id number] Vaccine (3 - Moderna risk series) 02/11/2021 [...] complete this topic Insurance MEDICARE Care Teams Coffee Bar Attendant Relationship Specialty Start Date End Date Clifford Horner MD [address] [facility] [address] [place] [address] PCP - General 07/14/24
== END 2025-06-15 23:59 | disposition home or self-care (01) ==
LOC: INF 13:18
PROVIDERS: PCP Internal Medicine; Visit Provider Internal Medicine
DX: N39.0 Urinary tract infection, site not specified (principal); B96.20 Unspecified Escherichia coli [E. coli] as the cause of diseases classified elsewhere; Z16.12 Extended spectrum beta lactamase (ESBL) resistance
CPT/HCPCS: 96372; J1335

== ENCOUNTER 2025-08-21 13:20 | Outpatient (CLI) | payer MEDICARE, SELFPAY ==
[2025-08-21 17:09] LABS: Microscopic, Urine URINE MICROSCOPIC (MICROSCOPIC)
[2025-08-21 17:26] LABS: Color,Urine YELLOW (Yellow); Glucose,Urine (UA) Negative (Negative); Ketones,Urine Negative (Negative); Leukocyte Esterase,Urine 3+ (Negative); PH,Urine 5.5 (5.0-8.5); Protein,Urine 2+ (Negative); Specific Gravity, Urine 1.020 (1.005-1.030); Urobilinogen,Urine 1.0 EU/dl (0.2)
[2025-08-21 17:33] LABS: Bilirubin,Urine 1+ (Negative)
[2025-08-21 17:47] LABS: Bacteria,Urine 4+ /lpf; WBC,Urine 50-100 #/hpf (0-3)
--- OUTSIDE RECORDS SUMMARY | 2025-08-22 10:00 | XMS_ITS | Encounter Summary ---
Author Organization [employer] ([place], [place], [place], [place], [place]) Address [address] [place] [address] Care Team Providers Care Ribbon Blockmaker Name Role Phone Unavailable Primary Care Provider Unavailabl e Encounter Details Date Type Department Care Team (Late st Contact Info) Description 11/25/2018 Transcribed Document [facility] [place] Family Medicine [address] [place] [address] ProviderErika MD [address] [place] [address] Social History Tobacco Use Types Packs/Day Years Used Date Smoking Tobacco: Never Assessed Sex and Gender Information Value Date Recorded Sex Assigned at Not on file Legal Sex Male 5:03 PM CDT Gender Identity Not on file Sexual Orientation Not on file documented as of this encounter Miscellaneous Notes * Cerner Conversion Note - Erika Jose MD - 11/25/2018 9:00 AM CDT NIH Stroke Scale *Q Entered On: 11/25/2018 11:41 EDT Performed On: 11/25/2018 9:00 EDT by Elissa Rodarte RN NIH Stroke Scale *Q NIH Assessment Interval : Other: Q12H Time of Assessment : 11/25/2018 9:00 EDT [facility] Clinician Administering Scale : Elissa Rodarte RN [...]
--- OUTSIDE RECORDS SUMMARY | 2025-08-22 10:00 | XMS_ITS | Encounter Summary ---
Author Organization [employer] ([place], [place], [place], [place], [place]) Address [address] [place] [address] Care Team Providers Care Meat Pumper Name Role Phone Unavailable Primary Care Provider Unavailabl e Encounter Details Date Type Department Care Team (Late st Contact Info) Description 11/22/2018 Transcribed Document [facility] [place] Family Medicine [address] [place] [address] ProviderErika MD [address] [place] [address] Social History Tobacco Use Types [...] Source : Measured Height Entry Format : [place] Height, Feet : 6 ft Height, Inches : 1 Inch Clinical Height : 185.42 cm Amanda Sigala RN - 11/22/2018 6:08 EDT Amanda Sigala RN - 11/22/2018 6:15 EDT documented in this encounter Plan of Treatment Not on file documented as of this encounter Visit Diagnoses Not on filedocumented in this encounter
--- OUTSIDE RECORDS SUMMARY | 2025-08-22 10:00 | XMS_ITS | Encounter Summary ---
Author Organization [employer] ([place], [place], [place], [place], [place]) Address [address] [place] [address] Care Team Providers Care Electroencephalogram Technologist Name Role Phone Unavailable Primary Care Provider Unavailabl e Encounter Details Date Type Department Care Team (Late st Contact Info) Description 11/22/2018 Transcribed Document [facility] [place] [address] [place] [address] ProviderErika MD [address] [place] [address] Social History Tobacco Use Types [...] EDT by LEONEL GUZMAN Chaplain General Information Scientologist Preference : Mandaeism LEONEL GUZMAN Chaplain - 11/24/2018 2:35 EDT Spiritual Assessment Spiritual Assessment Comment/Summary Points : Prov. empathetic engaged listening: Pt. is Mandaeism, spouse & son visit pt. regularly, Spouse & Pt. in their late teens. Pt. enjoys reminiscing and story telling, Pt. looking forward to [facility] rehab noting he wants/needs to work [...] GASCA EDWIN, Chaplain - 11/24/2018 2:35 EDT Electronically signed by Christina Saini Conversion Oil Well Services Supervisor Cerner at 12/08/2022 12:26 PM CDT documented in this encounter Plan of Treatment Not on file documented as of this encounter Visit Diagnoses Not on filedocumented in this encounter
--- OUTSIDE RECORDS SUMMARY | 2025-08-22 10:00 | XMS_ITS | Encounter Summary ---
Author Organization [employer] ([place], [place], [place], [place], [place]) Address [address] [place] [address] Care Team Providers Care Internet Webmaster Name Role Phone Unavailable Primary Care Provider Unavailabl e Encounter Details Date Type Department Care Team (Late st Contact Info) Description 11/22/2018 Transcribed Document [facility] [place] [address] [place] [address] ProviderErika MD [address] [place] [address] Social History Tobacco Use Types Packs/Day Years Used Date Smoking Tobacco: Never Assessed Sex and Gender Information Value Date Recorded Sex Assigned at Not on file Legal Sex Male 5:03 PM CDT Gender Identity Not on file Sexual Orientation Not on file documented as of this encounter Miscellaneous Notes * Cerner Conversion Note - Erika Jose MD - 11/22/2018 8:21 AM CDT FEES Evaluation Entered On: 11/22/2018 9:34 EDT Performed On: 11/22/2018 9:23 EDT by JOSSUE RODRÍGUEZ RETAIL SERVICE REPRESENTATIVE General Information Visit Type, RETAIL SERVICE REPRESENTATIVE : Re-Evaluation Patient Orders : RETAIL SERVICE REPRESENTATIVE Fxnl Limitation Documentation x 1 -111 Start: 11/22/18 8:22:14 EDT - SYSTEM, SYSTEM FEES - Start: 11/22/18 8:21:00 EDT, Routine, For Swallow Eval and Treat -111 MARIEL ROBLES PA RETAIL SERVICE REPRESENTATIVE Fxnl Limitation Documentation - Start: 11/20/18 9:37:47 EDT, Continuous Order -111 SYSTEM, SYSTEM Speech Language Pathology Additional Tx - Start: 11/20/18 9:36:00 EDT, For Dysphagia, Continuous Order -111 Admission Date : Admission Date/Time: 11/16/18 06:45:00 Medical Chart Reviewed, RETAIL SERVICE REPRESENTATIVE : Yes Personal Devices : Personal Devices No Devices Recorded Assistive Devices : Assistive Devices No Devices Recorded Active Diagnoses : 11/17/2018 00:00 Atherosclerotic heart disease of [place] coronary artery without angina pectoris 11/17/2018 00:00 Essential (primary) hypertension 11/17/2018 00:00 Hypothyroidism, unspecified 11/17/2018 00:00 Nonrheumatic aortic (valve) insufficiency 11/17/2018 00:00 Restless legs syndrome 11/17/2018 00:00 Thoracic aortic aneurysm, without rupture 11/17/2018 00:00 Thrombocytopenia, unspecified 11/16/2018 00:00 Atherosclerotic heart disease of [place] coronary artery without angina pectoris 11/16/2018 00:00 Nonrheumatic aortic (valve) insufficiency 11/16/2018 00:00 Thoracic aortic aneurysm, without rupture Therapy Diagnosis, RETAIL SERVICE REPRESENTATIVE : normal oral skills, moderate pharyngeal dysphagia Previous Speech/Language Evaluations : N/A Previous Swallow Precautions : Bedside 11/20 recommended instrumental prior to initiating PO diet Previous Cognitive Evaluations : N/A Diet/Intake Prior to Current Admission : Regular/thin Diet/Intake During Current Admission : NPO with TF via [place]ak Gag Reflex Intact : Yes Intubation Comment, RETAIL SERVICE REPRESENTATIVE : 11/16-11/17 Vital Signs RTF : [...] 9:23 EDT General Status Patient Received Status, RETAIL SERVICE REPRESENTATIVE : Long sitting in bed Patient Left Status, RETAIL SERVICE REPRESENTATIVE : Long sitting in bed JOSSUE RODRÍGUEZ [...] Consistencies Trialed FEES : Thin by straw, [place] by straw, Pureed, Regular solids JOSSUE RODRÍGUEZ SLP - 11/22/2018 9:23 EDT Swallow Impressions Impressions, FEES : Pharyngeal dysphagia JOSSUE RODRÍGUEZ SLP - 11/22/2018 9:23 EDT 8 Point Penetration/Aspiration Grid Thin by Straw : 8 [place] by Straw : 1 Pureed : 1 [...] : Regular Recommended Liquid Diet, SwRec : [place] Feeding Presentation Style, SwRec : No restrictions Swallow Position, SwRec : Upright 90 degrees Supervision Level w/Meals, SwRec : Assist, standby Recommended Med Present, SwRec : Crushed, Whole, With nectar, With puree/pudding, No medications with water Recommended Exam, Sw Rec : FEES Repeat Swallow Exam Timeframe : 3-6 days JOSSUE RODRÍGUEZ SLP - 11/22/2018 9:34 EDT Therapy Indication Assessment RETAIL SERVICE REPRESENTATIVE Indicated : Yes RETAIL SERVICE REPRESENTATIVE Problem List : Impaired, Swallowing JOSSUE RODRÍGUEZ SLP - 11/22/2018 9:34 EDT Swallow Plan/Goals Treatment Frequency, RETAIL SERVICE REPRESENTATIVE : 5 times per wk Treatment Plan Est w/Pt/Caregvr, Swallow : Yes JOSSUE RODRÍGUEZ SLP - 11/22/2018 9:34 EDT Swallow LTG Grid RETAIL SERVICE REPRESENTATIVE Snf Goal #1 RETAIL SERVICE REPRESENTATIVE Knot Borer Goal #2 Swallow LTG : Establish safe [...] JOSSUE RODRÍGUEZ SLP - 11/22/2018 9:34 EDT RETAIL SERVICE REPRESENTATIVE Education Assessment Grid 1 Aspiration : Needs further teaching Diet Recommendation : Needs further teaching Dysphagia : Needs further teaching Free Water Protocol : Needs further teaching Ice Chips : Needs further teaching Oral Care : Needs further teaching JOSSUE RODRÍGUEZ SLP - 11/22/2018 9:34 EDT RETAIL SERVICE REPRESENTATIVE Education Assessment Grid 2 Speech Language Pathology Treatment Plan : Needs further teaching JOSSUE RODRÍGUEZ SLP - 11/22/2018 9:[address] [facility] RETAIL SERVICE REPRESENTATIVE Charges FEES : 1 JOSSUE RODRÍGUEZ SLP - 11/22/2018 9:34 EDT documented in this encounter Plan of Treatment Not on file documented as of this encounter Visit Diagnoses Not on filedocumented in this encounter
--- OUTSIDE RECORDS SUMMARY | 2025-08-22 10:00 | XMS_ITS | Encounter Summary ---
Author Organization [employer] ([place], [place], [place], [place], [place]) Address [address] [place] [address] Care Team Providers Care Watch Leader Name Role Phone Unavailable Primary Care Provider Unavailabl e Encounter Details Date Type Department Care Team (Late st Contact Info) Description 11/18/2018 Transcribed Document [facility] [place] Family Medicine [address] [place] [address] ProviderErika MD [address] [place], [...] Note - Erika Jose MD - 11/18/2018 10:32 AM CDT Spiritual Care Assessment Entered On: 11/18/2018 10:54 EDT Performed On: 11/18/2018 10:32 EDT by MARCOS GASCA General Information Initial Visit : Yes Referred by : Veterinary Laboratory Technician initiated Referral Reason Comment : Post-op visit Ministry Provided to : Patient, Family/Significant other Rastafarian Preference : Bahai MARCOS GASCA P - 11/18/2018 10:51 EDT [...] other supported, Relationship strengths identified Spiritual and Rastafarian : Prayer shared, Spiritual/Rastafarian support provided MARCOS GASCA P - 11/18/2018 10:51 EDT Electronically signed by Parveen, [facility] Conversion Chlorine Cell Tender Cerner at 12/08/2022 12:34 PM CDT documented in this encounter Plan of Treatment Not on file documented as of this encounter Visit Diagnoses Not on filedocumented in this encounter
--- OUTSIDE RECORDS SUMMARY | 2025-08-22 10:00 | XMS_ITS | Encounter Summary ---
Author Organization [employer] ([place], [place], [place], [place], [place]) Address [address] [place] [address] Care Team Providers Care Loft Worker Name Role Phone Unavailable Primary Care Provider Unavailabl e Encounter Details Date Type Department Care Team (Late st Contact Info) Description 11/25/2018 Transcribed Document [facility] [place] [address] [place] [address] ProviderErika MD [address] [place], [...] Conversion Note - Erika ProviderMD - 11/25/2018 11:22 AM CDT RX Interventions Entered On: 11/25/2018 12:22 EDT Performed On: 11/25/2018 12:20 EDT by THERESA CAZARES [facility] Clinical Interventions Heparin Per Weight-Based Protocol : Yes THERESA CAZARES [facility] - 11/25/2018 12:20 EDT Heparin Per [...] 11/25/2018 12:20 EDT Electronically signed by Parveen [facility] Conversion Primary Teaching Assistant Cerner at 12/08/2022 12:35 PM CDT documented in this encounter Plan of Treatment Not on file documented as of this encounter Visit Diagnoses Not on filedocumented in this encounter
--- OUTSIDE RECORDS SUMMARY | 2025-08-22 10:00 | XMS_ITS | Encounter Summary ---
Author Organization [employer] ([place], [place], [place], [place], [place]) Address [address] [place] [address] Care Team Providers Care Test Rack Operator Name Role Phone Unavailable Primary Care Provider Unavailabl e Encounter Details Date Type Department Care Team (Late st Contact Info) Description 11/25/2018 Transcribed Document [facility] [place] [address] [place] [address] ProviderErika MD [address] [place] [address] Social History Tobacco Use Types [...]
--- OUTSIDE RECORDS SUMMARY | 2025-08-22 10:00 | XMS_ITS | Encounter Summary ---
Author Organization [employer] ([place], [place], [place], [place], [place]) Address [address] [place] [address] Care Team Providers Care Postal Sorting Officer Name Role Phone Unavailable Primary Care Provider Unavailabl e Encounter Details Date Type Department Care Team (Late st Contact Info) Description 11/22/2018 Transcribed Document [facility] [place] [address] [place] [address] ProviderErika MD [address] [place] [address] Social History Tobacco Use Types [...] On: 11/22/2018 13:55 EDT by ODALYS FAULKNER Rn-Robotic Welding OperatorDirector Data Processing Note Care Management Note : 11/22/18 Pt has had a cva. Spoke to his Connie and son Sumeet at the bedside. Pt is lfacid on the left side. Discussed the need for STR and they decided on [facility]. Sent pt info via [employer] to [facility]. CF Documentation Status Complete : Yes ODALYS FAULKNER Rn-Robotic Welding Operator - 11/22/2018 13:55 EDT Patient History Emergency Contact #1 : Connie Emergency Contact #1 (H) Emergency Contact #1 Relationship : Emergency Contact #2 : Sheridan Fernando Emergency Contact #2 (C) Emergency Contact #2 Relationship : daughter Living Situation : Home Patient Lives With : Spouse Current Home Treatments : None Patient History Note Report : ODALYS FAULKNER Rn-Robotic Welding Operator - 11/17/18 11:25:13 11/17/18 Pt sleeping [...] when pt is awake. CF ODALYS FAULKNER Rn-Robotic Welding Operator - 11/22/2018 13:55 EDT Electronically signed by [facility] Conversion Drop Wire Stringer Cerner at 12/08/2022 12:32 PM CDT documented in this encounter Plan of Treatment Not on file documented as of this encounter Visit Diagnoses Not on filedocumented in this encounter
--- OUTSIDE RECORDS SUMMARY | 2025-08-22 10:00 | XMS_ITS | Encounter Summary ---
Author Organization [employer] ([place], [place], [place], [place], [place]) Address [address] [place] [address] Care Team Providers Care Vocal Music Teacher Name Role Phone Unavailable Primary Care Provider Unavailabl e Encounter Details Date Type Department Care Team (Late st Contact Info) Description 11/17/2018 Transcribed Document [facility] [place] [address] [place] [address] ProviderErika MD [address] [place], [place] [id number] Social History Tobacco Use Types Packs/Day Years Used Date Smoking Tobacco: Never Assessed Sex and Gender Information Value Date Recorded Sex Assigned at Not on file Legal Sex Male 5:03 PM CDT Gender Identity Not on file Sexual Orientation Not on file documented as of this encounter Miscellaneous Notes * Cerner Conversion Note - Historical ProviderMD - 11/17/2018 2:00 AM CDT Primer Supervisor Details Entered On: 11/17/2018 7:39 EDT Performed [...]
--- OUTSIDE RECORDS SUMMARY | 2025-08-22 10:00 | XMS_ITS | Clinical Summary ---
Author Organization [employer] ([place], [place], [place], [place], [place]) Address [address] [place] [address] Care Team Providers Care Nanotechnology Engineering Technician Name Role Phone Unavailable Primary Care [...]
--- OUTSIDE RECORDS SUMMARY | 2025-08-22 10:00 | XMS_ITS | Encounter Summary ---
Author Organization [employer] ([place], [place], [place], [place], [place]) Address [address] [place] [address] Care Team Providers Care Can Maker Name Role Phone Unavailable Primary Care Provider Unavailabl e Encounter Details Date Type Department Care Team (Late st Contact Info) Description 11/25/2018 Transcribed Document [facility] [place] Family Medicine [address] [place] [address] ProviderErika MD [address] [place], [place] [id number] Social History Tobacco Use Types Packs/Day Years Used Date Smoking Tobacco: Never Assessed Sex and Gender Information Value Date Recorded Sex Assigned at Not on file Legal Sex Male 5:03 PM CDT Gender Identity Not on file Sexual Orientation Not on file documented as of this encounter Miscellaneous Notes * Cerner Conversion Note - Erika ProviderMD - 11/25/2018 6:00 PM CDT RX [...]
--- OUTSIDE RECORDS SUMMARY | 2025-08-22 10:00 | XMS_ITS | Encounter Summary ---
Author Organization [employer] ([place], [place], [place], [place], [place]) Address [address] [place] [address] Care Team Providers Care Apple Checker Name Role Phone Unavailable Primary Care Provider Unavailabl e Encounter Details Date Type Department Care Team (Late st Contact Info) Description 11/17/2018 Transcribed Document [facility] Cardiology [address] [place] [address] Lc Armendariz MD [address] [facility] [address] [place] [id number] Social History Tobacco Use Types Packs/Day Years [...] MD-CAR Basic Information PCP: Sanjuana Espino MD Travelers' Aid Worker: Porfirio Combs MD Chief Complaint s/p bioprosthetic [...] list: All Problems Aneurysm, thoracic aortic / 2794030254 / Confirmed Aortic valve insufficiency / 104508442 / Confirmed Arthritis / 1457814 / Confirmed At risk for sleep apnea / 73732679 / Confirmed CAD (coronary artery disease) / 12196506 / Confirmed Disorder of prostate ( enlarged) / 90272490 / Confirmed HTN - Hypertension / 4877975815 / Confirmed Hypothyroidism / 84777890 / Confirmed Frequent urination / 920286293 / Confirmed Cancer of skin of face / 4984231493 / Confirmed Nocturia / 912331722 / Confirmed Restless legs syndrome / 94379142 / Confirmed Prostate stricture / 68701914 / Confirmed Resolved: Bladder stone / 739803869 Canceled: Aneurysm / 1384129138 Canceled: Thyroid disease / 499590428 Histories No education data available. Social & Psychosocial Habits Alcohol 04/16/2017 Alcohol Use History, Social Habits No Alcohol Use in Last Twelve Months No Home/Environment 11/15/2018 Lives with: Spouse Living situation: Home/Independent Substance Abuse 04/16/2017 Recreational Drug Use History No Recreational Drug Use Last 12 Months No Tobacco 04/16/2017 Smoking Status Never smoker Past Medical History: Active HTN - Hypertension (6292370276) Hypothyroidism (25345445) Family History: Entire family history is negative. [...] No tenderness, No swelling. Integumentary: Warm, Dry, [place]. Neurologic: Not alert, Not oriented. Psychiatric: not [...] 11/17/2018 05:17 Radiology Results (Last 48 hours) [id number] -- 11/16/2018 06:45 CR Chest 2 Vws [...] by Dr. Niles Escalante.Transcribed by Clarence Roberts PA-C.I have personally viewed, interpreted and dictated the examination. Ihave read and agree with the above final transcribed report. CR Chest 1 Vw Portable (11/16/2018 12:55) Result: PORTABLE CHEST HISTORY: Pneumothorax.COMPARISON: 1 day prior.FINDINGS: The heart is stable in size. The patient is status post mediansternotomy. The endotracheal tube is in the mid thoracic trachea. Anasogastric tube extends below the diaphragm. Left-sided Dille-Ganzcatheter tip is in the left main pulmonary [...] day.FINDINGS: The heart is normal in size. Dille-Jovanna catheter tips in theleft pulmonary artery. There [...]
--- OUTSIDE RECORDS SUMMARY | 2025-08-22 10:00 | XMS_ITS | Encounter Summary ---
Author Organization [employer] ([place], [place], [place], [place], [place]) Address [address] [place] [address] Care Team Providers Care Clarity Developer Name Role Phone Unavailable Primary Care Provider Unavailabl e Encounter Details Date Type Department Care Team (Late st Contact Info) Description 11/18/2018 Transcribed Document [facility] Cardiology [address] [place] [address] Lc Armendariz MD [address] [facility] [address] [place] [address] Social History Tobacco Use Types Packs/Day Years [...] mg, Oral, At Bedtime saliva substitutes: 1 [place], Buccal, Q2H, PRN: Other (See Comment) [...] of motion, Normal strength. Integumentary: Warm, Dry, [place]. Neurologic: Alert, Oriented. Psychiatric: Cooperative, Appropriate mood & affect. Results Review NOV 18 03:37 138 106 19 / H 200 3.8 27 0.90 \ NOV 18 03:37 \ L 10.2 / H 17.7 L 103 / L 30.3 \ Cardiac Markers (Current Encounter/Past 24 Hours) No Cardiac Marker Results Found (Past 24 Hours) Radiology Results (Last 48 hours) [id number] -- 11/16/2018 06:45 CR Chest 1 Vw Portable (11/16/2018 12:55) Result: PORTABLE CHEST HISTORY: Pneumothorax.COMPARISON: 1 day prior.FINDINGS: The heart is stable in size. The patient is status post mediansternotomy. The endotracheal tube is in the mid thoracic trachea. Anasogastric tube extends below the diaphragm. Left-sided Pingree-Ganzcatheter tip is in the left main pulmonary [...] day.FINDINGS: The heart is normal in size. Pingree-Jovanna catheter tips in theleft pulmonary artery. There [...]
--- OUTSIDE RECORDS SUMMARY | 2025-08-22 10:00 | XMS_ITS | Encounter Summary ---
Author Organization [employer] ([place], [place], [place], [place], [place]) Address [address] [place] [address] Care Team Providers Care Corporate Director Of Human Resources Name Role Phone Unavailable Primary Care Provider Unavailabl e Encounter Details Date Type Department Care Team (Late st Contact Info) Description 11/18/2018 Transcribed Document [facility] [place] Family Medicine [address] [place] [address] ProviderErika MD [address] [place] [address] Social History Tobacco Use Types [...] : 11/17/2018 00:00 Atherosclerotic heart disease of [place] coronary artery without angina pectoris 11/17/2018 00:00 Essential (primary) hypertension 11/17/2018 00:00 Hypothyroidism, unspecified 11/17/2018 00:00 Nonrheumatic aortic (valve) insufficiency 11/17/2018 00:00 Restless legs syndrome 11/17/2018 00:00 Thoracic aortic aneurysm, without rupture 11/17/2018 00:00 Thrombocytopenia, unspecified 11/16/2018 00:00 Atherosclerotic heart disease of [place] coronary artery without angina pectoris 11/16/2018 00:00 [...] SENIA QUINTANA PTA - 11/23/2018 10:24 EDT Residential Goals Mobility/Bed Mobility LTG PT Grid Goal [...] SENIA QUINTANA PTA - 11/23/2018 10:24 EDT [place] PT Charges PT Therap. Exercise 15 min : 1 PT Ther Activities Ea 15 Min : 1 SENIA QUINTANA PTA - 11/23/2018 10:24 EDT Electronically signed by Parveen [facility] Conversion Leather Softener Cerner at 12/12/2022 8:26 AM CDT documented in this encounter Plan of Treatment Not on file documented as of this encounter Visit Diagnoses Not on filedocumented in this encounter
--- OUTSIDE RECORDS SUMMARY | 2025-08-22 10:00 | XMS_ITS | Encounter Summary ---
Author Organization [employer] ([place], [place], [place], [place], [place]) Address [address] [place] [address] Care Team Providers Care Civil Engineering Project Designer Name Role Phone Unavailable Primary Care Provider Unavailabl e Encounter Details Date Type Department Care Team (Late st Contact Info) Description 11/18/2018 Transcribed Document [facility] [place] Family Medicine [address] [place] [address] ProviderErika MD [address] [place], [place] [phone] Social History Tobacco Use Types Packs/Day Years Used Date Smoking Tobacco: Never Assessed Sex and Gender Information Value Date Recorded Sex Assigned at Not on file Legal Sex Male 5:03 PM CDT Gender Identity Not on file Sexual Orientation Not on file documented as of this encounter Miscellaneous Notes * Cerner Conversion Note - Historical ProviderMD - 11/18/2018 2:00 AM CDT Pr Manager Details Entered On: 11/18/2018 4:41 EDT Performed [...] Not Appropriate Arterial Line : Yes DANYA GILES, TONJA - 11/18/2018 4:41 EDT documented in this encounter Plan of Treatment Not on file documented as of this encounter Visit Diagnoses Not on filedocumented in this encounter
--- OUTSIDE RECORDS SUMMARY | 2025-08-22 10:00 | XMS_ITS | Clinical Summary ---
Author Organization [facility] Address [address] [place] [address] Care Team Providers Care Standard Machine Stitcher Name Role Phone Clifford Horner MD Primary Care Provider [phone] Allergies No known active allergies Medications dutasteride [...] r (1 - 1-dose 75+ series) 2014 [id number] Vaccine (3 - Moderna risk series) 02/11/2021 01/14/2021, 12/17/2020 [facility]-Influenza Vaccine (#1) 2025 07/12/2024 [facility]-Pneumococcal Vaccine: 50 + Years (2 of 2 - PCV) 07/12/2025 07/12/2024 [facility]-Depression Screening 07/19/2025 07/19/2024 [facility]-Zoster Vaccines Completed 06/25/2022, 01/17/2022 [facility]-Obesity Intervention Completed 024, 07/19/2024 HPV Vaccines (No Doses Required) Completed [facility]-HIB Vaccines Aged Out No longer e [...] complete this topic Insurance MEDICARE Care Teams Standard Machine Stitcher Relationship Specialty Start Date End Date Clifford Horner MD [address] [facility] [address] [place] [address] PCP - General 07/14/24
--- OUTSIDE RECORDS SUMMARY | 2025-08-22 10:00 | XMS_ITS | Encounter Summary ---
Author Organization [employer] ([place], [place], [place], [place], [place]) Address [address] [place] [address] Care Team Providers Care Deputy Assessor Name Role Phone Unavailable Primary Care Provider Unavailabl e Encounter Details Date Type Department Care Team (Late st Contact Info) Description 11/25/2018 Transcribed Document [facility] Family Medicine [address] [place] [address] ProviderErika MD [address] [place] [address] Social History Tobacco Use Types [...] schedule permits. Notification : TONJA Bowers SHEENAGH E, OTR/Ginny - 11/25/2018 15:07 EDT documented in this encounter Plan of Treatment Not on file documented as of this encounter Visit Diagnoses Not on filedocumented in this encounter
--- OUTSIDE RECORDS SUMMARY | 2025-08-22 10:00 | XMS_ITS | Encounter Summary ---
Author Organization [facility] Address [address] [place] [address] Care Team Providers Care Clinical Audiologist Name Role Phone Sanjuana Valdez APRN Primary Care Provider [phone] Clifford Horner MD Primary Care Provider [phone] Encounter Details Date Type Department Care Team (Late st Contact Info) Description 06/02/2022 [facility] [address] [place] [address] Joanna Zamora, DPM [address] [place], [place] [id number] Contracture of left ankle (Primary Dx); Contracture [...] foot documented in this encounter Care Teams Clinical Audiologist Relationship Specialty Start Date End Date Sanjuana Valdez APRN [address] [place] [address] PCP - General 01/04/21 07/13/24 Clifford Horner MD [address] [place] [address] PCP - General 07/14/24 documented as of this encounter
--- OUTSIDE RECORDS SUMMARY | 2025-08-22 10:00 | XMS_ITS | Encounter Summary ---
Author Organization [employer] ([place], [place], [place], [place], [place]) Address [address] [place] [address] Care Team Providers Care Lifeline Representatives Name Role Phone Unavailable Primary Care Provider Unavailabl e Encounter Details Date Type Department Care Team (Late st Contact Info) Description 11/17/2018 Transcribed Document [facility] Family Medicine [address] [place] [address] ProviderErika MD [address] [place] [address] Social History Tobacco Use Types [...] Source : Measured Height Entry Format : Willacy Height, Feet : 6 ft Height, Inches : 1 Inch Clinical Height : 185.42 cm Body Surface Area (BSA), Routine : 2.06 m2 Body Mass Index (BMI), Routine : 23.73 kg/m2 Alpesh Barraza RN - 11/17/2018 7:37 EDT Electronically signed by Christina Saini Conversion Entry Level Staff Accountant Cerner at 12/08/2022 12:13 PM CDT documented in this encounter Plan of Treatment Not on file documented as of this encounter Visit Diagnoses Not on filedocumented in this encounter
--- OUTSIDE RECORDS SUMMARY | 2025-08-22 10:00 | XMS_ITS | Encounter Summary ---
Author Organization [employer] ([place], [place], [place], [place], [place]) Address [address] [place] [address] Care Team Providers Care Exploration Manager Name Role Phone Unavailable Primary Care Provider Unavailabl e Encounter Details Date Type Department Care Team (Late st Contact Info) Description 11/25/2018 Transcribed Document [facility] Family Medicine [address] [place] [address] ProviderErika MD [address] [place] [address] Social History Tobacco Use Types Packs/Day Years Used Date Smoking Tobacco: Never Assessed Sex and Gender Information Value Date Recorded Sex Assigned at Not on file Legal Sex Male 5:03 PM CDT Gender Identity Not on file Sexual Orientation Not on file documented as of this encounter Miscellaneous Notes * Cerner Conversion Note - Erika ProviderMD - 11/25/2018 3:00 AM CDT Nutrition [...] at goal rate. Did have BM yesterday. JUDO TEACHER okayed pt for po diet this [...] midline incision; 1-2+ edema GI: + BM 4/3 Diet: Cardiac, NTL + ensure BID Intake: avg 30% x 3 meals, however pt reports eating ~75% of lunch today (family confirmed this) HT: 185cm (6'1) ADMIT WT: 79kg/174# Current Wt: 81.6kg (11/17), 82.4kg (11/18) , 84.3 kg (11/22), 81.8 kg (11/24) BMI: 23 IBW: 79kg/100% EST NEEDS: 9672-2609 kcal (25-30kcal/kg), 95g pro (1.2g/kg) DAVION GREEN [...] Therapy : Commercial beverage DAVION GREEN RD, TAMMIE - 11/25/2018 13:03 EDT Monitoring/Evaluation Energy Intake : Total energy intake Food Intake : Amount of food Protein Intake : Total protein Weight Status : Weight Maintanence DAVION GREEN RD, TAMMIE - 11/25/2018 13:03 EDT Nutrition Recommendations Dietitian [...]
--- OUTSIDE RECORDS SUMMARY | 2025-08-22 10:01 | XMS_ITS | Encounter Summary ---
Author Organization [employer] ([place], [place], [place], [place], [place]) Address [address] [place] [address] Care Team Providers Care Indirect Fire Infantryman Name Role Phone Unavailable Primary Care Provider Unavailabl e Encounter Details Date Type Department Care Team (Late st Contact Info) Description 11/21/2018 Transcribed Document [facility] [place] Family Medicine [address] [place] [address] ProviderErika MD [address] [place], [place] [id number] Social History Tobacco Use Types Packs/Day Years [...] Bedtime, Routine HEENT saliva substitutes - 1 [place], Buccal, Liquid, Q2H, PRN for Other (See [...] Radiology results Radiology Results (Last 48 hours) [id number] -- 11/16/2018 06:45 CR Chest 1 Vw Portable (11/20/2018 04:12) Result: PORTABLE CHEST 11/20/2018 4:00 AMHISTORY: Shortness of breathCOMPARISON: 1 day priorFINDINGS: A [place]-Jovanna catheter tip terminates in the SVC. The [place]-Ganzcatheter has been retracted. The cardiac silhouette is [...]
--- OUTSIDE RECORDS SUMMARY | 2025-08-22 10:01 | XMS_ITS | Encounter Summary ---
Author Organization [employer] ([place], [place], [place], [place], [place]) Address [address] [place] [address] Care Team Providers Care Cell Operation Supervisor Name Role Phone Unavailable Primary Care Provider Unavailabl e Encounter Details Date Type Department Care Team (Late st Contact Info) Description 11/23/2018 Transcribed Document [facility] Family Medicine [address] [place] [address] ProviderErika MD [address] [place] [address] Social History Tobacco Use Types Packs/Day Years Used Date Smoking Tobacco: Never Assessed Sex and Gender Information Value Date Recorded Sex Assigned at Not on file Legal Sex Male 5:03 PM CDT Gender Identity Not on file Sexual Orientation Not on file documented as of this encounter Miscellaneous Notes * Cerner Conversion Note - Erika ProviderMD - 11/23/2018 1:36 PM CDT Education-Wound [...]
--- OUTSIDE RECORDS SUMMARY | 2025-08-22 10:01 | XMS_ITS | Encounter Summary ---
Author Organization [employer] ([place], [place], [place], [place], [place]) Address [address] [place] [address] Care Team Providers Care Media Promoter Name Role Phone Unavailable Primary Care Provider Unavailabl e Encounter Details Date Type Department Care Team (Late st Contact Info) Description 11/21/2018 Transcribed Document [facility] Family Medicine [address] [place] [address] ProviderErika MD [address] [place] [address] Social History Tobacco Use Types [...] MRI to confirm. -continue asa, statin -Continue PT/OT/CUTLET MAKER PORK -control blood pressure, aim for whatever is [...] Tab, Oral, At Bedtime saliva substitutes, 1 [place], Buccal, Q2H, PRN Senokot, 17.2 mg= 2 [...]
--- OUTSIDE RECORDS SUMMARY | 2025-08-22 10:01 | XMS_ITS | Encounter Summary ---
Author Organization [employer] ([place], [place], [place], [place], [place]) Address [address] [place] [address] Care Team Providers Care Soaping Department Supervisor Name Role Phone Unavailable Primary Care Provider Unavailabl e Encounter Details Date Type Department Care Team (Late st Contact Info) Description 11/21/2018 Transcribed Document [facility] Family Medicine [address] [place] [address] ProviderErika MD [address] [place], [...] Historical ProviderMD - 11/21/2018 2:00 AM CDT Vice President Diversity Details Entered On: 11/21/2018 1:40 EDT Performed [...]
--- OUTSIDE RECORDS SUMMARY | 2025-08-22 10:01 | XMS_ITS | Encounter Summary ---
Author Organization [employer] ([place], [place], [place], [place], [place]) Address [address] [place] [address] Care Team Providers Care Bead Worker Sewing Name Role Phone Unavailable Primary Care Provider Unavailabl e Encounter Details Date Type Department Care Team (Late st Contact Info) Description 11/22/2018 Transcribed Document [facility] [place] Family Medicine [address] [place] [address] ProviderErika MD [address] [place] [id number] Social History Tobacco Use Types Packs/Day Years Used Date Smoking Tobacco: Never Assessed Sex and Gender Information Value Date Recorded Sex Assigned at Not on file Legal Sex Male 5:03 PM CDT Gender Identity Not on file Sexual Orientation Not on file documented as of this encounter Miscellaneous Notes * Cerner Conversion Note - Erika Jose MD - 11/22/2018 11:21 AM CDT Patient: JORGE VILLASENOR Age: 78 Years Sex: Male : 1940 Subjective Patient lying in bed. Still weak on left side. Review of Systems Respiratory - wearing 02 by MT GI - has NG tube. Objective Vitals [...] Tab, Oral, At Bedtime saliva substitutes, 1 [place], Buccal, Q2H, PRN Senokot, 17.2 mg= 2 Tab, Oral, BID sodium bicarbonate 50 mEq per amp (adult), 50 mEq= 50 mL, IV Push, 1-Time, PRN sodium bicarbonate 50 mEq per amp (adult), 100 mEq= 100 mL, IV Push, 1-Time, PRN Zofran, 4 mg= 2 mL, IV Push, Q4H, PRN Electronically signed by Christina Saini Conversion Aircraft Maintenance Instructor Cerner at 12/08/2022 12:16 PM CDT documented in this encounter Plan of Treatment Not on file documented as of this encounter Visit Diagnoses Not on filedocumented in this encounter
--- OUTSIDE RECORDS SUMMARY | 2025-08-22 10:01 | XMS_ITS | Encounter Summary ---
Author Organization [employer] ([place], [place], [place], [place], [place]) Address [address] [place] [address] Care Team Providers Care Dredge Runner Name Role Phone Unavailable Primary Care Provider Unavailabl e Encounter Details Date Type Department Care Team (Late st Contact Info) Description 12/01/2018 Transcribed Document [facility] [place] [address] [place] [address] ProviderErika MD [address] [place], [...] Jose MD - 12/01/2018 1:54 PM CDT [place] [address] DOTTIE VILLASENOR :1940 Visit Time:11/16/2018 Your Visit Summary Your Care Team Admitting Physician - JULIO CESAR CARVALHO MD-CAT Attending Physician - JULIO CESAR CARVALHO MD-YADIRA Primary Care Physician - DEMETRICE ARMIJO NP-FAM Referring Physician - DEMETRICE ARMIJO NP-FAM Your Diagnosis Acute blood loss anemia Aortic insufficiency, Aortic insufficiency CAD (coronary artery disease), inaja coronary artery, Coronary artery disease GI bleed [...] Your Care Team [facility]-Stroke [facility] RN report #[phone] DC Summary #[phone] You may shower. Make sure your back [...] IF you have a fever greater than [id number], call the surgeon. DO NOT drive for [...] [address] [facility] [place] [address]- Business (1) Follow Up with JULIO CESAR CARVALHO When 12/15/2018 12:15 PM EDT Where: [address] [facility] [address] [place] [address] Business (1) Follow Up with DEMETRICE ARMIJO When Within 1 week Comments When you are discharged from [facility] please call to make a 1 week hospital follow-up appointment. Where: [address] [place] [address]- Follow Up with JOHN BOWEN When Within 6 weeks Comments Patient should call for a follow up appointment with [facility]. Where: [address] [place] [address]- Business (1) Medications What How [...] 09/17/2005 Document Revised: 12/01/2016 Document Reviewed: 01/30/2014 [employer] Interactive Patient Education ?? 2017 [employer] How to Take Your Blood Pressure [...] 07/23/2009 Document Revised: 08/31/2015 Document Reviewed: 10/05/2014 [employer] Interactive Patient Education ?? 2017 [employer] How to Take a Pulse Your [...] 02/14/2004 Document Revised: 02/27/2017 Document Reviewed: 01/13/2017 [employer] Patient Education ?? 2017 [employer] Coronary Artery Bypass Grafting, Care After [...] 02/27/2006 Document Revised: 08/31/2015 Document Reviewed: 01/17/2014 [employer] Patient Education ?? 2017 [employer] Bleeding Precautions When on Anticoagulant Therapy [...] can be dangerous for you. ??? Many pytk-vms-mfpkxme medicines for pain, colds, or stomach problems [...] provider. Document Released: 07/21/2016 Document Reviewed: 07/21/2016 [employer] Interactive Patient Education ?? 2017 [employer] Atrial Fibrillation Introduction Atrial fibrillation is [...] Follow these instructions at home: ??? Take jjna-rga-elzfjnd and prescription medicines only as told by [...] 09/17/2005 Document Revised: 01/15/2017 Document Reviewed: 02/10/2014 [employer] Interactive Patient Education ?? 2017 [facility]ter[facility]G. [facility]ji ramos) [facility] What is the most important information I [...] may report side effects to FDA at 8-752-QMZ-9375. What other drugs will affect misoprostol? Other drugs may interact with misoprostol, including prescription and oliv-twq-afxltfc medicines, vitamins, and herbal products. Tell each [...] to ensure that the information provided by [employer] ('Craig Wirelesstum') is accurate, up-to-date, and complete, but no guarantee is made to that effect. Drug information contained herein may be time sensitive. [employer] information has been compiled for use by healthcare practitioners and consumers in the [place] and therefore [employer] does not warrant that uses outside of the [place] are appropriate, unless specifically indicated otherwise. [employer] drug information does not endorse drugs, diagnose patients or recommend therapy. [employer] drug information is an informational resource designed [...] effective or appropriate for any given patient. [employer] does not assume any responsibility for any aspect of healthcare administered with the aid of information [employer] provides. The information contained herein is not intended to cover all possible uses, directions, precautions, warnings, drug interactions, allergic reactions, or adverse effects. If you have questions about the drugs you are taking, check with your doctor, nurse or pharmacist. Copyright 9803-6347 [employer] Version: 8.01. Revision Date: 03/02/2014.sucralfate (oral) (angelica [...] may report side effects to FDA at 2-399-ITX-6386. What other drugs will affect sucralfate? Sucralfate can make it harder for your body to absorb other medications you take by mouth. Avoid taking any other medications within 2 hours before or after you take sucralfate. Other drugs may interact with sucralfate, including prescription and tncc-atn-ievknbh medicines, vitamins, and herbal products. Tell each [...] to ensure that the information provided by [employer] ('[employer]') is accurate, up-to-date, and complete, but no guarantee is made to that effect. Drug information contained herein may be time sensitive. [employer] information has been compiled for use by healthcare practitioners and consumers in the [place] and therefore [employer] does not warrant that uses outside of the [place] are appropriate, unless specifically indicated otherwise. [employer] drug information does not endorse drugs, diagnose patients or recommend therapy. [employer] drug information is an informational resource designed [...] effective or appropriate for any given patient. [employer] does not assume any responsibility for any aspect of healthcare administered with the aid of information [employer] provides. The information contained herein is not intended to cover all possible uses, directions, precautions, warnings, drug interactions, allergic reactions, or adverse effects. If you have questions about the drugs you are taking, check with your doctor, nurse or pharmacist. Copyright 2082-0545 [employer] Version: 8.01. Revision Date: 01/03/2013.sucralfate (oral) (angelica [...] may report side effects to FDA at 1-973-XUQ-9963. What other drugs will affect sucralfate? Sucralfate can make it harder for your body to absorb other medications you take by mouth. Avoid taking any other medications within 2 hours before or after you take sucralfate. Other drugs may interact with sucralfate, including prescription and iddw-bgx-sywdpbv medicines, vitamins, and herbal products. Tell each [...] to ensure that the information provided by [employer] ('[employer]') is accurate, up-to-date, and complete, but no guarantee is made to that effect. Drug information contained herein may be time sensitive. [employer] information has been compiled for use by healthcare practitioners and consumers in the [place] and therefore [employer] does not warrant that uses outside of the [place] are appropriate, unless specifically indicated otherwise. [employer] drug information does not endorse drugs, diagnose patients or recommend therapy. [employer] drug information is an informational resource designed [...] effective or appropriate for any given patient. [employer] does not assume any responsibility for any aspect of healthcare administered with the aid of information [facility] provides. The information contained herein is not intended to cover all possible uses, directions, precautions, warnings, drug interactions, allergic reactions, or adverse effects. If you have questions about the drugs you are taking, check with your doctor, nurse or pharmacist. Copyright 8798-6688 [employer] Version: 8.01. Revision Date: 01/03/2013. Emergency Awareness [...] Assistance with quitting is available by contacting 0-779-FASSBonfire.comNOW. This is a free resource providing counseling, [...]
--- OUTSIDE RECORDS SUMMARY | 2025-08-22 10:01 | XMS_ITS | Encounter Summary ---
Author Organization [employer] ([place], [place], [place], [place], [place]) Address [address] [place] [address] Care Team Providers Care Carpet Inspector Finished Name Role Phone Unavailable Primary Care Provider Unavailabl e Encounter Details Date Type Department Care Team (Late st Contact Info) Description 11/25/2018 Transcribed Document [facility] [place] [address] [place] [address] ProviderErika MD [address] [place] [address] Social History Tobacco Use Types Packs/Day Years Used Date Smoking Tobacco: Never Assessed Sex and Gender Information Value Date Recorded Sex Assigned at Not on file Legal Sex Male 5:03 PM CDT Gender Identity Not on file Sexual Orientation Not on file documented as of this encounter Miscellaneous Notes * Cerner Conversion Note - Erika ProviderMD - 11/25/2018 5:00 PM CDT Chart [...]
--- OUTSIDE RECORDS SUMMARY | 2025-08-22 10:01 | XMS_ITS | Encounter Summary ---
Author Organization [employer] ([place], [place], [place], [place], [place]) Address [address] [place] [address] Care Team Providers Care Cadmium Liquor Maker Name Role Phone Unavailable Primary Care Provider Unavailabl e Encounter Details Date Type Department Care Team (Late st Contact Info) Description 11/18/2018 Transcribed Document [facility] Family Medicine [address] [place] [address] ProviderErika MD [address] [place], [...] Note - Erika ProviderMD - 11/18/2018 5:00 PM CDT Chart [...]
--- OUTSIDE RECORDS SUMMARY | 2025-08-22 10:01 | XMS_ITS | Encounter Summary ---
Author Organization [employer] ([place], [place], [place], [place], [place]) Address [address] [place] [address] Care Team Providers Care Network Planner Name Role Phone Unavailable Primary Care Provider Unavailabl e Encounter Details Date Type Department Care Team (Late st Contact Info) Description 12/01/2018 Transcribed Document [facility] Family Medicine [address] [place] [address] ProviderErika MD [address] [place], [...]
--- OUTSIDE RECORDS SUMMARY | 2025-08-22 10:01 | XMS_ITS | Encounter Summary ---
Author Organization [employer] ([place], [place], [place], [place], [place]) Address [address] [place] [address] Care Team Providers Care Material Control Analyst Name Role Phone Unavailable Primary Care Provider Unavailabl e Encounter Details Date Type Department Care Team (Late st Contact Info) Description 11/22/2018 Transcribed Document [facility] [place] Family Medicine [address] [place] [address] ProviderErika MD [address] [place], [place] [phone] Social History Tobacco Use Types Packs/Day Years Used Date Smoking Tobacco: Never Assessed Sex and Gender Information Value Date Recorded Sex Assigned at Not on file Legal Sex Male 5:03 PM CDT Gender Identity Not on file Sexual Orientation Not on file documented as of this encounter Miscellaneous Notes * Cerner Conversion Note - Historical ProviderMD - 11/22/2018 2:00 AM CDT Bag Maker Details Entered On: 11/22/2018 6:09 EDT Performed [...]
--- OUTSIDE RECORDS SUMMARY | 2025-08-22 10:01 | XMS_ITS | Encounter Summary ---
Author Organization [employer] ([place], [place], [place], [place], [place]) Address [address] [place] [address] Care Team Providers Care Outdoor Education Teacher Name Role Phone Unavailable Primary Care Provider Unavailabl e Encounter Details Date Type Department Care Team (Late st Contact Info) Description 11/30/2018 Transcribed Document [facility] [place] Family Medicine [address] [place] [address] ProviderErika MD [address] [place], [place] [id number] Social History Tobacco Use Types Packs/Day Years Used Date Smoking Tobacco: Never Assessed Sex and Gender Information Value Date Recorded Sex Assigned at Not on file Legal Sex Male 5:03 PM CDT Gender Identity Not on file Sexual Orientation Not on file documented as of this encounter Miscellaneous Notes * Cerner Conversion Note - Historical ProviderMD - 11/30/2018 2:00 AM CDT Appliance Tester Details Entered On: 11/30/2018 0:59 EDT Performed [...] Appropriate Arterial Line : No Dixie Fox, TONJA - 11/30/2018 0:59 EDT documented in this encounter Plan of Treatment Not on file documented as of this encounter Visit Diagnoses Not on filedocumented in this encounter
--- OUTSIDE RECORDS SUMMARY | 2025-08-22 10:01 | XMS_ITS | Encounter Summary ---
Author Organization [email or web address] ([place], [place], [place], [place], [place]) Address [address] [place] [address] Care Team Providers Care Tube Cleaner Name Role Phone Unavailable Primary Care Provider Unavailabl e Encounter Details Date Type Department Care Team (Late st Contact Info) Description 11/23/2018 Transcribed Document [facility] [place] [address] [place] [address] ProviderErika MD [address] [place] [address] Social History Tobacco Use Types [...] Tab, Oral, At Bedtime saliva substitutes, 1 [place], Buccal, Q2H, PRN Senokot, 17.2 mg= 2 Tab, Oral, BID Zofran, 4 mg= 2 mL, IV Push, Q4H, PRN Electronically signed by Parveen, [facility] Conversion Rotary Saw Operator Cerner at 12/08/2022 12:26 PM CDT documented in this encounter Plan of Treatment Not on file documented as of this encounter Visit Diagnoses Not on filedocumented in this encounter
--- OUTSIDE RECORDS SUMMARY | 2025-08-22 10:01 | XMS_ITS | Encounter Summary ---
Author Organization [employer] ([place], [place], [place], [place], [place]) Address [address] [place] [address] Care Team Providers Care Thread Winder Name Role Phone Unavailable Primary Care Provider Unavailabl e Encounter Details Date Type Department Care Team (Late st Contact Info) Description 12/01/2018 Transcribed Document [facility] [place] Family Medicine [address] [place] [address] ProviderErika MD [address] [place] [address] Social History Tobacco Use Types [...] 09/17/2005 Document Revised: 12/01/2016 Document Reviewed: 01/30/2014 [employer] Interactive Patient Education ? 2017 [employer]. How to Take Your Blood Pressure [...] Document Reviewed: 10/05/2014 Elsevier Interactive Patient Education ? 2017 [employer]Walker [employer] How to Take a Pulse Your [...] 02/14/2004 Document Revised: 02/27/2017 Document Reviewed: 01/13/2017 [employer] Interactive Patient Education ? 2017 [employer]. Coronary Artery Bypass Grafting, Care After [...] 02/27/2006 Document Revised: 08/31/2015 Document Reviewed: 01/17/2014 [employer]Walker [employer] Interactive Patient Education ? 2017 [employer]. Bleeding Precautions When on Anticoagulant Therapy [...] can be dangerous for you. ??? Many famp-xmg-ctupggp medicines for pain, colds, or stomach problems [...] provider. Document Released: 07/21/2016 Document Reviewed: 07/21/2016 [employer]O Interactive Patient Education ? 2017 [employer] Inc. Atrial Fibrillation Introduction Atrial fibrillation is [...] Follow these instructions at home: ??? Take bcqt-kss-uksihbk and prescription medicines only as told by [...] 02/10/2014 Elsevier Interactive Patient Education ? 2017 [employer]. documented in this encounter Plan of Treatment Not on file documented as of this encounter Visit Diagnoses Not on filedocumented in this encounter
--- OUTSIDE RECORDS SUMMARY | 2025-08-22 10:01 | XMS_ITS | Encounter Summary ---
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 Respiratory Assessment Comment : Nasal cannula MAMTA SOLO, ERIC - 11/23/2018 14:12 EDT Visit Type, STEAM BOX OPERATOR : Initial evaluation Patient Orders : Speech Language Pathology Evaluation and Treatment -111 Start: 11/22/18 11:18:00 EDT, Routine, For Speech Language Cognitive Eval and Treat - JAY JAY CRESPO MD-DIANE STEAM BOX OPERATOR Fxnl Limitation Documentation - Start: 11/20/18 9:37:47 EDT, Continuous Order -111 SYSTEM, SYSTEM Speech Language Pathology Additional Tx - Start: 11/20/18 9:36:00 EDT, For Dysphagia, Continuous Order -111 Admission Date : Admission Date/Time: 03/26/19 06:45:00 Medical Chart Reviewed, STEAM BOX OPERATOR : Yes Personal Devices : Personal Devices No Devices Recorded Assistive Devices : Assistive Devices No Devices Recorded Active Diagnoses : 11/23/2018 00:00 Cerebral infarction, unspecified 11/17/2018 00:00 Atherosclerotic heart disease of [place] coronary artery without angina pectoris 11/17/2018 00:00 Essential (primary) hypertension 11/17/2018 00:00 Hypothyroidism, unspecified 11/17/2018 00:00 Nonrheumatic aortic (valve) insufficiency 11/17/2018 00:00 Restless legs syndrome 11/17/2018 00:00 Thoracic aortic aneurysm, without rupture 11/17/2018 00:00 Thrombocytopenia, unspecified 11/16/2018 00:00 Atherosclerotic heart disease of [place] coronary artery without angina pectoris 11/16/2018 [...] Gag Reflex Intact : Yes Intubation Comment, STEAM BOX OPERATOR : 11/16-11/17 Vital Signs RTF : [...] Wt: 11/15 79.2 kg 174 lb MAMTA SOLO, ERIC - 11/23/2018 13:41 EDT General Status Patient Received Status, STEAM BOX OPERATOR : Supine in bed Patient Left Status, STEAM BOX OPERATOR : Supine in bed MAMTA SOLO [...] Oral Mechanism for Daily Living : Intact STEAM BOX OPERATOR Cough : Weak MAMTA SOLO SLP [...] 14:12 EDT Evaluation Methods Types of Evaluation, STEAM BOX OPERATOR : Informal MAMTA SOLO SLP - 11/23/2018 14:12 EDT [facility] Impressions Impressions, Speech/Lang/Cog : Other: Mixed expressive/receptive communication impairment [facility] Overall Impressions : Communication evaluation [...] - 11/23/2018 14:12 EDT Therapy Indication Assessment STEAM BOX OPERATOR Indicated : Yes STEAM BOX OPERATOR Interdisciplinary Consultation Needs : No STEAM BOX OPERATOR Problem List : Impaired, Spoken Language Comprehension, Impaired, Spoken Language Expression MAMTA SOLO SLP - 11/23/2018 14:12 EDT LTG Lang/Comm/Cog LTG STEAM BOX OPERATOR Intermediate Goal 1 Intermediate Goal 2 Goals [...] MAMTA Acharya SLP - 11/23/2018 14:12 EDT Memory STG [...] MAMTA SOLO SLP - 11/23/2018 14:12 EDT STEAM BOX OPERATOR Education Assessment Grid 1 Evaluation Results : Verbalizes understanding MAMTA SOLO SLP - 11/23/2018 14:12 EDT STEAM BOX OPERATOR Education Assessment Grid 2 Treatment Plan : Verbalizes understanding MAMTA SOLO SLP - 11/23/2018 14:[address] [facility] STEAM BOX OPERATOR Charges Evaluation of Speech Production & Language : 1 MAMTA SOLO SLP - 11/23/2018 14:12 EDT Anticipated Discharge Needs, STEAM BOX OPERATOR Anticipated Discharge to OT : Rehab, high intensity Recommend Continued Therapy at Discharge : Yes MAMTA SOLO SLP - 11/23/2018 14:12 EDT Electronically signed by Christina Saini Conversion Vice President Corporate Communications Cerner at 12/08/2022 12:14 PM CDT documented in this encounter Plan of Treatment Not on file documented as of this encounter Visit Diagnoses Not on filedocumented in this encounter
--- OUTSIDE RECORDS SUMMARY | 2025-08-22 10:01 | XMS_ITS | Encounter Summary ---
Author Organization [employer] ([place], [place], [place], [place], [place]) Address [address] [place] [address] Care Team Providers Care Slurry Control Operator Helper Name Role Phone Unavailable Primary Care Provider Unavailabl e Encounter Details Date Type Department Care Team (Late st Contact Info) Description 11/30/2018 Transcribed Document [facility] [place] [address] [place] [address] ProviderErika MD [address] [place], [place] [id number] Social History Tobacco Use Types Packs/Day Years [...] Bed scale Routine Weight Entry Format : [place] Routine Weight, Pounds : 164 lb Routine Weight, Ounces : 1 oz Routine Weight Calculation : 74.57 kg Height Source : Measured Height Entry Format : [place] Height, Feet : 6 ft Height, Inches : 1 Inch Clinical Height : 185.42 cm Body Surface Area (BSA), Routine : 1.98 m2 Body Mass Index (BMI), Routine : 21.69 kg/m2 Dixie Fox RN - 11/30/2018 6:12 EDT Electronically signed by Christina Saini Conversion Electronic Controls Repairer Supervisor Cerner at 12/08/2022 12:39 PM CDT documented in this encounter Plan of Treatment Not on file documented as of this encounter Visit Diagnoses Not on filedocumented in this encounter
--- OUTSIDE RECORDS SUMMARY | 2025-08-22 10:01 | XMS_ITS | Encounter Summary ---
Author Organization [employer] ([place], [place], [place], [place], [place]) Address [address] [place] [address] Care Team Providers Care Assisted Sales Representative Name Role Phone Unavailable Primary Care Provider Unavailabl e Encounter Details Date Type Department Care Team (Late st Contact Info) Description 11/18/2018 Transcribed Document [facility] [place] [address] [place] [address] ProviderErika MD [address] [place] [address] Social History Tobacco Use Types Packs/Day Years Used Date Smoking Tobacco: Never Assessed Sex and Gender Information Value Date Recorded Sex Assigned at Not on file Legal Sex Male 5:03 PM CDT Gender Identity Not on file Sexual Orientation Not on file documented as of this encounter Miscellaneous Notes * Cerner Conversion Note - Erika Jose MD - 11/18/2018 3:00 AM CDT Nutrition Assessment [...] on Osmolite 1.5 @ 50m/hr + 1 [id number] daily advancing toward goal of 60ml/hr + 1 [id number] daily. No NURSING UNIT COORDINATOR consult noted, discussed if any concern [...] midline incision; chest tube 370ml GI: LBM CHIEF DEPUTY CLERK/BAILIFF (admit 11/16), hypoactive BS, +NGT Nutrition Support: Osmolite 1.5 @ 60ml/hr + 1 [id number] daily, water flush 10ml q1hr HT: 185cm (6'1) ADMIT WT: 79kg/174# Current Wt: 81.6kg (11/17), 82.4kg (11/18) BMI: 23 IBW: 79kg/100% EST NEEDS: 5607-8308 kcal (25-30kcal/kg), 95g pro (1.2g/kg) Bev Olvera [...] TF: Osmolite 1.5 @ 60ml/hr + 1 [id number] daily (provides 2040 kcal, 98g pro). FW per MD. goal: provide nutrition, meet est needs 2. As medically able, recommend swallow eval if appropriate; rec (cardiac) w/consistencies per NURSING UNIT COORDINATOR. RD will monitor need for supplement. goal: establish po intake 3. Obtain wt 2x weekly goal: no significant unintended changes high risk Nutrition Care Level : High Bev Olvera, Clinical Dietitian - 11/18/2018 11:31 EDT Electronically signed by Christina Saini Conversion Nanotechnology Engineering Technologist Cerner at 12/08/2022 12:30 PM CDT documented in this encounter Plan of Treatment Not on file documented as of this encounter Visit Diagnoses Not on filedocumented in this encounter
--- OUTSIDE RECORDS SUMMARY | 2025-08-22 10:01 | XMS_ITS | Encounter Summary ---
Author Organization [employer] ([place], [place], [place], [place], [place]) Address [address] [place] [address] Care Team Providers Care Woven Paper Hat Mender Name Role Phone Unavailable Primary Care Provider Unavailabl e Encounter Details Date Type Department Care Team (Late st Contact Info) Description 11/17/2018 Transcribed Document [facility] [place] [facility] [place] [address] ProviderErika MD [address] [place] [address] Social History Tobacco Use Types [...] On: 11/17/2018 11:22 EDT by ODALYS FAULKNER Rn-Acid DumperShip Ceiler Note Documentation Status Complete : Yes ODALYS FAULKNER Rn-Acid Dumper - 11/17/2018 11:22 EDT Patient History Information [...] when pt is awake. CF ODALYS FAULKNER, Rn-Acid Dumper - 11/17/2018 11:22 EDT Electronically signed by Christina Saini Conversion Commercial Lending Vice President Cerner at 12/08/2022 12:11 PM CDT documented in this encounter Plan of Treatment Not on file documented as of this encounter Visit Diagnoses Not on filedocumented in this encounter
--- OUTSIDE RECORDS SUMMARY | 2025-08-22 10:01 | XMS_ITS | Encounter Summary ---
Author Organization [employer] ([place], [place], [place], [place], [place]) Address [address] [place] [address] Care Team Providers Care Hris Manager Name Role Phone Unavailable Primary Care Provider Unavailabl e Encounter Details Date Type Department Care Team (Late st Contact Info) Description 11/18/2018 Transcribed Document [facility] Family Medicine [address] [place] [address] ProviderErika MD [address] [place], [place] [id number] Social History Tobacco Use Types Packs/Day Years [...] 1940 Associated Diagnoses: CAD (coronary artery disease), [place] coronary artery; Thrombocytopenia; Coronary artery disease; HTN [...] S1, S2, No edema. Integumentary: Warm, Dry, [place], incision is C/D/I. Neurologic: Alert, he did [...] Prophylaxis: SCDs Diagnosis CAD (coronary artery disease), [place] coronary artery - Admitting, Medical. Thrombocytopenia - Working, Medical. Coronary artery disease - Discharge, Medical. HTN (hypertension) - Pre-Op Diagnosis, Medical. Hypothyroidism - Pre-Op Diagnosis, Medical. Aortic insufficiency - Admitting, Medical. Aortic insufficiency - Discharge, Medical. RLS (restless legs syndrome) - Pre-Op Diagnosis, Medical. Thoracic ascending aortic aneurysm - Admitting, Medical. Thoracic ascending aortic aneurysm - Discharge, Medical. Electronically signed by Parveen, [facility] Conversion Property Technician Cerner at 12/08/2022 12:19 PM CDT documented in this encounter Plan of Treatment Not on file documented as of this encounter Visit Diagnoses Not on filedocumented in this encounter
--- OUTSIDE RECORDS SUMMARY | 2025-08-22 10:01 | XMS_ITS | Encounter Summary ---
Author Organization [employer] ([place], [place], [place], [place], [place]) Address [address] [place] [address] Care Team Providers Care Photographic Hand Developer Name Role Phone Unavailable Primary Care Provider Unavailabl e Encounter Details Date Type Department Care Team (Late st Contact Info) Description 11/25/2018 Transcribed Document [facility] [place] Family Medicine [address] [place] [address] ProviderErika MD [address] [place], [place] [phone] Social History Tobacco Use Types Packs/Day Years [...] 1940 Associated Diagnoses: CAD (coronary artery disease), [place] coronary artery; Thrombocytopenia; Coronary artery disease; HTN [...] left upper extremity swelling. Integumentary: Warm, Dry, [place], incision is C/D/I. Neurologic: Alert, left sided paralysis. Orientation: To person, To place, To time. Psychiatric: Cooperative, Appropriate mood & affect. Review / Management Results review: NOV 25 03:57 136 102 H 29 / 97 4.5 27 0.80 \ APR 04 03:57 \ L 11.0 / H 11.1 [...] information to [facility] -Transfer to [facility] 11/24/18 -POD#8 -Awaiting transfer to [facility] -Awaiting response from [facility] 11/25/18 -left upper extremity venous doppler - doppler this am positive for LUE DVT - will start coumadin and heparin bridge -awaiting [facility] EF 55-60% per echo 11/16/18 DVT Prophylaxis: SCDs Diagnosis CAD (coronary artery disease), [place] coronary artery - Admitting, Medical. Thrombocytopenia - [...]
--- OUTSIDE RECORDS SUMMARY | 2025-08-22 10:01 | XMS_ITS | Encounter Summary ---
Author Organization [employer] ([place], [place], [place], [place], [place]) Address [address] [place] [address] Care Team Providers Care Tool Grinder Operator Name Role Phone Unavailable Primary Care Provider Unavailabl e Encounter Details Date Type Department Care Team (Late st Contact Info) Description 11/23/2018 Transcribed Document [facility] [place] Family Medicine [address] [place] [address] ProviderEriak MD [address] [place] [address] Social History Tobacco Use Types Packs/Day Years Used Date Smoking Tobacco: Never Assessed Sex and Gender Information Value Date Recorded Sex Assigned at Not on file Legal Sex Male 5:03 PM CDT Gender Identity Not on file Sexual Orientation Not on file documented as of this encounter Miscellaneous Notes * Cerner Conversion Note - Erika Jose MD - 11/23/2018 1:36 PM CDT Education-Cardiac Topics [...]
--- OUTSIDE RECORDS SUMMARY | 2025-08-22 10:01 | XMS_ITS | Encounter Summary ---
Author Organization [employer] ([place], [place], [place], [place], [place]) Address [address] [place] [address] Care Team Providers Care Telegraph And Teletype Operator Name Role Phone Unavailable Primary Care Provider Unavailabl e Encounter Details Date Type Department Care Team (Late st Contact Info) Description 12/01/2018 Transcribed Document [facility] [place] Family Medicine [facility] [place] [address] ProviderErika MD [address] [place] [address] Social History Tobacco Use Types [...] MD - 12/01/2018 1:32 PM CDT [address] [address] Patient Copy Patient Information: Name: DOTTIE VILLASENOR Current Date: 12/01/2018 13:32:25 : 1940 Patient Address: [address] [place] [id number] Patient Attending Physician: JULIO CESAR CARVALHO MD-CAT Primary Care Provider: DEMETRICE ARMIJO NP-[facility] Primary Care Provider Discharge Diagnosis: Acute blood loss anemia; Aortic insufficiency; Coronary artery disease; GI bleed; LUE DVT (deep venous thrombosis); Right MCA CVA (cerebral vascular accident); Thoracic ascending aortic aneurysm Weight on Admission: 174 lb, 5 oz Weight at Discharge: 159 lb Comment: Follow-up Instructions: With: Address: When: DEMETRICE ARMIJO [address] [place] [address] Within 1 week Comments: When you are discharged from [facility] please call to make a 1 week hospital follow-up appointment. With: Address: When: JULIO CESAR DEY [address] [place] [address] Business (1) 1:15 PM With: Address: When: JULIO CESAR CARVALHO [address] [place] [address] Business (1) Within 2 weeks With: Address: When: JOHN BOWEN [address] [place] [address] Business (1) Within 6 weeks Comments: Patient should call for a follow up appointment with [facility] Neurology. Discharge Instructions: Driving after Discharge: Do not drive, Other: No driving or operating heavy machinery until released by a physician. Community Services: Outpt Cardiac [facility] [phone] They will call pt w/ appt time. [...] 09/17/2005 Document Revised: 01/15/2017 Document Reviewed: 02/10/2014 [employer] Interactive Patient Education ? 2017 [employer] Inc. CIGARETTE SMOKING: The facts are clear, cigarette smoking will shorten your life. Smoking can cause many illnesses along the way. As a healthcare provider, we recommend that you stop smoking. Assistance with quitting is available by contacting 2-470-CCFP-NOW. This is a free resource providing counseling, [...] Be sure to sign up for the [facility] patient portal, which gives you 16/03 access to your medical information ??? including these discharge instructions ??? using your computer, smartphone, or tablet. Just go to [employer] to get started. Questions? Call . [facility] would like to thank you for allowing us to assist you with your healthcare needs. HAMILTON Jarvis ROBERT H, (or international account representative) have received the above patient education materials/instructions and have verbalized understanding: Patient Signature _ Date/Time Patient Printing Supplies Sales Representative Signature (if needed) Date/Time Clinician/Hospital Printing Supplies Sales Representative Signature (if needed) Date/Time documented in this encounter Plan of Treatment Not on file documented as of this encounter Visit Diagnoses Not on filedocumented in this encounter
--- OUTSIDE RECORDS SUMMARY | 2025-08-22 10:01 | XMS_ITS | Encounter Summary ---
Author Organization [employer] ([place], [place], [place], [place], [place]) Address [address] [place] [address] Care Team Providers Care Cathode Washer Name Role Phone Unavailable Primary Care Provider Unavailabl e Encounter Details Date Type Department Care Team (Late st Contact Info) Description 11/23/2018 Transcribed Document [facility] [place] [address] [place] [address] ProviderErika MD [address] [place], [place] [phone] Social History Tobacco Use Types Packs/Day Years [...] 1940 Associated Diagnoses: CAD (coronary artery disease), [place] coronary artery; Thrombocytopenia; Coronary artery disease; HTN [...] S1, S2, No edema. Integumentary: Warm, Dry, [place], incision is C/D/I. Neurologic: Alert, left sided [...] of discharge- MELLISSA has sent information to [facility] -Transfer [facility] EF 55-60% per echo 11/16/18 DVT Prophylaxis: SCDs Diagnosis CAD (coronary artery disease), [place] coronary artery - Admitting, Medical. Thrombocytopenia - [...] accident) - Discharge, Medical. Electronically signed by Parveen, [facility] Conversion Hide Trimmer Cerner at 12/08/2022 12:36 PM CDT documented in this encounter Plan of Treatment Not on file documented as of this encounter Visit Diagnoses Not on filedocumented in this encounter
--- OUTSIDE RECORDS SUMMARY | 2025-08-22 10:01 | XMS_ITS | Encounter Summary ---
Author Organization [employer] ([place], [place], [place], [place], [place]) Address [address] [place] [address] Care Team Providers Care Sidewalk Inspector Name Role Phone Unavailable Primary Care Provider Unavailabl e Encounter Details Date Type Department Care Team (Late st Contact Info) Description 11/25/2018 Transcribed Document [facility] [place] [address] [place] [address] ProviderErika MD [address] [place], [place] [phone] Social History Tobacco Use Types Packs/Day Years Used Date Smoking Tobacco: Never Assessed Sex and Gender Information Value Date Recorded Sex Assigned at Not on file Legal Sex Male 5:03 PM CDT Gender Identity Not on file Sexual Orientation Not on file documented as of this encounter Miscellaneous Notes * Cerner Conversion Note - Erika Jose MD - 11/25/2018 1:48 PM CDT Patient: JORGE VILLASENOR Age: 78 [...] Tab, Oral, At Bedtime saliva substitutes, 1 [place], Buccal, Q2H, PRN Senokot, 17.2 mg= 2 Tab, Oral, BID warfarin, 5 mg= 1 Tab, Oral, Daily Zofran, 4 mg= 2 mL, IV Push, Q4H, PRN Electronically signed by Parveen, [facility] Conversion Chainstitch Elastic Attacher Cerner at 12/08/2022 12:38 PM CDT documented in this encounter Plan of Treatment Not on file documented as of this encounter Visit Diagnoses Not on filedocumented in this encounter
--- OUTSIDE RECORDS SUMMARY | 2025-08-22 10:01 | XMS_ITS | Encounter Summary ---
Author Organization [employer] ([place], [place], [place], [place], [place]) Address [address] [place] [address] Care Team Providers Care Head Well Puller Name Role Phone Unavailable Primary Care Provider Unavailabl e Encounter Details Date Type Department Care Team (Late st Contact Info) Description 11/21/2018 Transcribed Document [facility] [place] Family Medicine [address] [place] [address] ProviderErika MD [address] [place] [...] Source : Measured Height Entry Format : [place] Height, Feet : 6 ft Height, Inches [...]
--- OUTSIDE RECORDS SUMMARY | 2025-08-22 10:01 | XMS_ITS | Encounter Summary ---
Author Organization [email or web address] ([place], [place], [place], [place], [place]) Address [address] [place] [address] Care Team Providers Care Math And Physics Instructor Name Role Phone Unavailable Primary Care Provider Unavailabl e Encounter Details Date Type Department Care Team (Late st Contact Info) Description 11/18/2018 Transcribed Document [facility] [place] Family Medicine [address] [place] [address] ProviderErika MD [address] [place], [...] Note - Erika Jose MD - 11/18/2018 5:00 AM CDT Height and [...] Source : Measured Height Entry Format : [place] Height, Feet : 6 ft Height, Inches : 1 Inch Clinical Height : 185.42 cm Body Surface Area (BSA), Routine : 2.07 m2 Body Mass Index (BMI), Routine : 23.97 kg/m2 DANYA GILES RN - 11/18/2018 4:42 EDT Electronically signed by Christina Saini Conversion Table Games Dual Rate Supervisor Cerner at 12/08/2022 12:30 PM CDT documented in this encounter Plan of Treatment Not on file documented as of this encounter Visit Diagnoses Not on filedocumented in this encounter
--- OUTSIDE RECORDS SUMMARY | 2025-08-22 10:01 | XMS_ITS | Encounter Summary ---
Author Organization [employer] ([place], [place], [place], [place], [place]) Address [address] [place] [address] Care Team Providers Care Freight Clerk Name Role Phone Unavailable Primary Care Provider Unavailabl e Encounter Details Date Type Department Care Team (Late st Contact Info) Description 12/01/[address] [facility] [place] [address] [place] [address] ProviderErika MD [address] [place] [address] Social History Tobacco Use Types [...] Performed On: 12/01/2018 13:36 EDT by NAIN JARRETT, mohel Documentation Discharge Date/Time : 12/01/2018 15:13 EDT [...] information provided to patient and discussed at [place]. Verbalized understanding. Worker's Compensation Paperwork Completed : NAIN Gomez RN - 12/01/2018 13:36 EDT Electronically signed by Christina Saini Conversion Portable Grinding Machine Operator Cerner at 12/08/2022 12:15 PM CDT documented in this encounter Plan of Treatment Not on file documented as of this encounter Visit Diagnoses Not on filedocumented in this encounter
--- OUTSIDE RECORDS SUMMARY | 2025-08-22 10:01 | XMS_ITS | Encounter Summary ---
Author Organization [employer] ([place], [place], [place], [place], [place]) Address [address] [place] [address] Care Team Providers Care Endless Bed Drum Sander Name Role Phone Unavailable Primary Care Provider Unavailabl e Encounter Details Date Type Department Care Team (Late st Contact Info) Description 12/01/2018 Transcribed Document [facility] [place] Family Medicine [address] [place] [address] ProviderErika MD [address] [place] [address] Social History Tobacco Use Types [...] - 12/01/2018 11:54 EDT Electronically signed by Parveen [facility] Conversion Director Of Retail Cerner at 12/08/2022 12:11 PM CDT documented in this encounter Plan of Treatment Not on file documented as of this encounter Visit Diagnoses Not on filedocumented in this encounter
--- OUTSIDE RECORDS SUMMARY | 2025-08-22 10:01 | XMS_ITS | Encounter Summary ---
Author Organization [employer] ([place], [place], [place], [place], [place]) Address [address] [place] [address] Care Team Providers Care Furniture Removalist Name Role Phone Unavailable Primary Care Provider Unavailabl e Encounter Details Date Type Department Care Team (Late st Contact Info) Description 11/22/[address] [facility] [place] [address] [place] [address] ProviderErika MD [address] [place] [address] Social History Tobacco Use Types Packs/Day Years Used Date Smoking Tobacco: Never Assessed Sex and Gender Information Value Date Recorded Sex Assigned at Not on file Legal Sex Male 5:03 PM CDT Gender Identity Not on file Sexual Orientation Not on file documented as of this encounter Miscellaneous Notes * Cerner Conversion Note - Historical ProviderMD - 11/22/2018 12:18 PM CDT FIRE BOSS Attempt to Treat Entered On: 11/22/2018 12:20 EDT Performed On: 11/22/2018 12:18 EDT by JOSSUE RODRÍGUEZ SLP Attempt to Treat Inability to Treat Comment : New orders received from Neurologist. ST is currently following pt for dysphagia. Will await neuro dx for full communication JOSSUE Mccarthy, FIRE BOSS - 11/22/2018 12:18 EDT documented in this encounter Plan of Treatment Not on file documented as of this encounter Visit Diagnoses Not on filedocumented in this encounter
--- OUTSIDE RECORDS SUMMARY | 2025-08-22 10:01 | XMS_ITS | Encounter Summary ---
Author Organization [employer] ([place], [place], [place], [place], [place]) Address [address] [place] [address] Care Team Providers Care Director Operating Room Name Role Phone Unavailable Primary Care Provider Unavailabl e Encounter Details Date Type Department Care Team (Late st Contact Info) Description 11/23/2018 Transcribed Document [facility] [place] [address] [place] [address] ProviderErika MD [address] [place] [address] Social History Tobacco Use Types Packs/Day Years Used Date Smoking Tobacco: Never Assessed Sex and Gender Information Value Date Recorded Sex Assigned at Not on file Legal Sex Male 5:03 PM CDT Gender Identity Not on file Sexual Orientation Not on file documented as of this encounter Miscellaneous Notes * Cerner Conversion Note - Historical ProviderMD - 11/23/2018 1:36 PM CDT Digital Computer Operator Details Entered On: 11/23/2018 16:44 EDT Performed [...]
--- OUTSIDE RECORDS SUMMARY | 2025-08-22 10:01 | XMS_ITS | Clinical Summary ---
Author Organization [facility] Address [address] [place] [phone] Phone Care Team Providers Care Tester Operator Name Role Phone Svitlana Manley MD [...] [place] PART A [place] B Care Teams Tester Operator Relationship Specialty Start Date End Date Svitlana Manley MD [address] [place] [phone] PCP - General Family Medicine 04/10/16
--- OUTSIDE RECORDS SUMMARY | 2025-08-22 10:01 | XMS_ITS | Encounter Summary ---
Author Organization [employer] ([place], [place], [place], [place], [place]) Address [address] [place] [address] Care Team Providers Care Optical Instrument Inspector Name Role Phone Unavailable Primary Care Provider Unavailabl e Encounter Details Date Type Department Care Team (Late st Contact Info) Description 11/23/2018 Transcribed Document [facility] [place] [address] [place] [address] ProviderErika MD [address] [place] [address] Social History Tobacco Use Types Packs/Day Years Used Date Smoking Tobacco: Never Assessed Sex and Gender Information Value Date Recorded Sex Assigned at Not on file Legal Sex Male 5:03 PM CDT Gender Identity Not on file Sexual Orientation Not on file documented as of this encounter Miscellaneous Notes * Cerner Conversion Note - Erika ProviderMD - 11/23/2018 5:00 PM CDT Chart [...]
--- OUTSIDE RECORDS SUMMARY | 2025-08-22 10:01 | XMS_ITS | Encounter Summary ---
Author Organization [employer] ([place], [place], [place], [place], [place]) Address [address] [place] [address] Care Team Providers Care Global Head Advertiser Solutions Name Role Phone Unavailable Primary Care Provider Unavailabl e Encounter Details Date Type Department Care Team (Late st Contact Info) Description 11/18/[address] [facility] [place] Family Medicine [address] [place] [address] ProviderErika MD [address] [place] [address] Social History Tobacco Use Types [...]
--- OUTSIDE RECORDS SUMMARY | 2025-08-22 10:02 | XMS_ITS | Encounter Summary ---
Author Organization [employer] ([place], [place], [place], [place], [place]) Address [address] [place] [address] Care Team Providers Care Monorail Operator Name Role Phone Unavailable Primary Care Provider Unavailabl e Encounter Details Date Type Department Care Team (Late st Contact Info) Description 11/29/2018 Transcribed Document [facility] [place] Medicine [facility] [place] [address] ProviderErika MD [address] [place], [place] [id number] Social History Tobacco Use Types [...] 1940 Associated Diagnoses: CAD (coronary artery disease), [place] coronary artery; Thrombocytopenia; Coronary artery disease; HTN [...] Non-distended, Normal bowel sounds. Integumentary: Warm, Dry, [place], incision is C/D/I. Neurologic: Alert, left sided [...] (Current Encounter/Past 24 Hours) PT 31.3 Second(s) SD 11/29/2018 06:38 PTT 27.6 Second(s) 11/28/2018 08:53 INR 3.0 SD 11/29/2018 06:38 . Impression and Plan Plan: [...] time of discharge- has sent information to [facility] -Transfer to [facility] 11/24/18 -POD#8 -Awaiting transfer to [facility] -Awaiting response from [facility] [...] has been set up. -Transferred to [facility] 11/29/18: -POD#13 -Upper endoscopy showed duodenal [...] D/C due to GI bleed. -Transfer to [facility] EF 55-60% per echo 11/16/18 DVT Prophylaxis: SCDs Diagnosis CAD (coronary artery disease), [place] coronary artery - Admitting, Medical. Thrombocytopenia - [...] Medical. Electronically signed by Christina Saini Conversion Granulating Machine Operator Cerner at 12/08/2022 12:15 PM CDT documented in this encounter Plan of Treatment Not on file documented as of this encounter Visit Diagnoses Not on filedocumented in this encounter
--- OUTSIDE RECORDS SUMMARY | 2025-08-22 10:02 | XMS_ITS | Encounter Summary ---
Author Organization [employer] ([place], [place], [place], [place], [place]) Address [address] [place] [address] Care Team Providers Care Insulation Manager Name Role Phone Unavailable Primary Care Provider Unavailabl e Encounter Details Date Type Department Care Team (Late st Contact Info) Description 11/24/2018 Transcribed Document [facility] [place] [address] [place] [address] ProviderErika MD [address] [place] [address] Social History Tobacco Use Types [...]
--- OUTSIDE RECORDS SUMMARY | 2025-08-22 10:02 | XMS_ITS | Encounter Summary ---
Author Organization [employer] ([place], [place], [place], [place], [place]) Address [address] [place] [address] Care Team Providers Care Product Support Sales Representative Name Role Phone Unavailable Primary Care Provider Unavailabl e Encounter Details Date Type Department Care Team (Late st Contact Info) Description 11/28/2018 Transcribed Document [facility] [place] Medicine [address] [place] [address] ProviderErika MD [address] [place] [address] Social History Tobacco Use Types Packs/Day Years Used Date Smoking Tobacco: Never Assessed Sex and Gender Information Value Date Recorded Sex Assigned at Not on file Legal Sex Male 5:03 PM CDT Gender Identity Not on file Sexual Orientation Not on file documented as of this encounter Miscellaneous Notes * Cerner Conversion Note - Erika Jose MD - 11/28/2018 10:19 AM CDT [facility] Main OR IntraOp Summary Primary Physician: SAMAN BERNSTEIN MD-GAE Finalized Date/Time: 11/30/18 09:14:16 Pt. Name: DOTTIE VILLASENOR Ladan Gerber/Sex: 1940 Male Med Rec #: [id number] Physician: JULIO CESAR CARVALHO MD-[facility] Financial #: [id number] Pt. Type: I Room/Bed: 330/1 Admit/Disch: 11/16/18 06:45:00 - Institution: [facility] IntraOp Case Attendance Entry 1 Entry 2 Entry 3 Case Attendee SAMAN BERNSTEIN MD-SALMA GARCIA MD WURTELE, JOHN L. Role Performed Surgeon/Proceduralist, Anesthesiologist Conveyor Operator, Ancillary First Time In 11/28/18 10:10:00 11/28/18 10:10:00 11/28/18 10:10:00 Time Out 11/28/18 10:35:00 11/28/18 10:35:00 11/28/18 10:35:00 Procedure Esophagogastroduodenosco Esophagogastroduodenosco Esophagogastroduodenosco py py py Other Attendee Superficial Wound Closed By: Last Modified By: Sukumar Casanova, Sukumar Gibbs, Sukumar Gibbs RN 11/28/18 11:00:07 11/28/18 11:00:07 11/28/18 11:00:07 Entry 4 Entry 5 Case Attendee Dianne Garcia, Sukumar Gibbs RN Role Performed Piggery Worker, First Piggery Worker, Second Time In 11/28/18 10:10:00 11/28/18 10:10:00 Time Out 11/28/18 10:35:00 11/28/18 10:35:00 Procedure Esophagogastroduodenosco Esophagogastroduodenosco py py Other Attendee Superficial Wound Closed By: Last Modified By: Sukumar Casanova RN Pantano, Scott, RN 11/28/18 11:00:07 11/28/18 11:00:07 [facility] IntraOp Case Attendance Audit 11/28/18 11:00:07 Oracle Obiee Developer: WILL Modifier: PANTANOS 1 <+> Time Out 1 <*> Procedure Esophagogastroduodenoscopy 2 <+> Time Out 2 <*> Procedure Esophagogastroduodenoscopy 3 <+> Time Out 3 <*> Procedure Esophagogastroduodenoscopy 4 <+> Time Out 4 <*> Procedure Esophagogastroduodenoscopy 5 <+> Time Out 5 <*> Procedure Esophagogastroduodenoscopy 11/28/18 10:20:36 [employer] Obiee Developer: ANDRADES Modifier: PANTANOS <+> 1 Procedure 2 <+> Time In 2 <*> Procedure Esophagogastroduodenoscopy 3 <+> Time In 3 <*> Procedure Esophagogastroduodenoscopy 4 <+> Time In 4 <*> Procedure Esophagogastroduodenoscopy 5 <+> Time In 5 <*> Procedure Esophagogastroduodenoscopy [facility] IntraOp Case Times Entry 1 Patient In Room Time 11/28/18 10:10:00 Out Room Time 11/28/18 10:35:00 Anesthesia Start Time 11/28/18 10:10:00 Stop Time 11/28/18 10:35:00 Surgery / Procedure Times Start Time 11/28/18 10:19:00 Stop Time 11/28/18 10:33:00 Last Modified By: Sukumar Casanova RN 11/28/18 10:59:40 [facility] IntraOp Case Times Audit 11/28/18 10:59:40 Oracle Obiee Developer: PANTANOS Modifier: PANTANOS <+> 1 Out Room Time <+> 1 Stop Time <+> 1 Stop Time 11/28/18 10:22:00 Oracle Obiee Developer: PANTANOS Modifier: PANTANOS <+> 1 Start Time [facility] IntraOp Departure from OR Entry 1 Integumentary Assessment Transfer/Handoff Transfer to PACU Phase I Handoff Method Bedside/Face to face, Online nursing summary Post-op Transport Stretcher/Gurney Via Patient Transport Sukumar Casanova RN, Accompanied by SALMA MARROQUIN MD Last Modified By: Sukumar Casanova RN 11/28/18 10:25:50 [facility] IntraOp Departure from OR Audit 11/28/18 10:25:50 Oracle Obiee Developer: PANTANOS Modifier: PANTANOS 1 <*> Patient Transport Accompanied by Sukumar Casanova RN [facility] IntraOp Fire Risk Assessment Entry 1 Fire [...] Modified By: Sukumar Casanova RN 11/28/18 10:15:58 [facility] IntraOp General Case Sample Carrier 1 Case Information OR OR [facility] Case Level 1 Room Verified Yes Wound Class II - Clean-Contaminated Specialty SN Gastroenterology Anesthesia Type General ASA Class 4E Diagnosis Preop Diagnosis GASTRIC BLEED Postop Same As Preop Yes Postop Diagnosis GASTRIC BLEED Last Modified By: Sukumar Casanova RN 11/28/18 10:18:38 [facility] IntraOp General Case Data Audit 11/28/18 10:18:38 Oracle Obiee Developer: WILL Modifier: PANTANOS <+> 1 Postop Same As Preop <+> 1 Preop Diagnosis <+> 1 Postop Diagnosis [facility] IntraOp Intraoperative Assessment Entry 1 Handoff Method Bedside/Face to face, Online nursing summary Valid History / Yes Physical in Chart Preoperative Yes Checklist Reviewed/Evaluated Allergies Reviewed Yes Patient is Latex No Sensitive Level of WDL Consciousness (WDL = Alert, Oriented to Person, Place, and Time) Skin Assessment No Verified Present Upon IVs Arrival to OR Last Modified By: Sukumar Casanova RN 11/28/18 10:21:06 [facility] IntraOp Intraoperative Equipment Entry 1 Type Monitoring Equipment Intraop Monitoring Electrocardiogram Three lead placement (ECG) Electrode Placement Blood Pressure Non-Invasive BP Device Source Blood Pressure Arm, right upper Location Pulse Oximeter Hand, left Probe Site Antiembolic Devices Scopes Photo/Video Documentation Last Modified By: Sukumar Casanova RN 11/28/18 10:21:34 [facility] IntraOp Patient Positioning Entry 1 Procedure Esophagogastroduodenosco [...] Modified By: Sukumar Casanova RN 11/28/18 10:20:33 [facility] IntraOp Sign In Entry 1 Patient, Site, [...] Modified By: Sukumar Casanova RN 11/28/18 10:22:31 [facility] IntraOp Sign Out Entry 1 RN Confirmation [...] Modified By: Sukumar Casanova RN 11/28/18 11:00:01 [facility] IntraOp Sign Out Audit 11/28/18 11:00:01 Oracle Obiee Developer: WILL Modifier: WILL <+> 1 RN Sign Out Signature Date/Time [facility] IntraOp Surgical Procedures Entry 1 Procedure Esophagogastroduodenosco py Additional (EGD WITH CONTROL OF Procedure BLEEDING) Description Primary Procedure Yes Primary Surgeon SAMAN BERNSTEIN MD-TAO Start 11/28/18 10:19:00 Stop 11/28/18 10:33:00 Anesthesia Type General Specialty SN Gastroenterology Wound Class II - Clean-Contaminated Last Modified By: Sukumar Casanova RN 11/28/18 10:59:52 [facility] IntraOp Surgical Procedures Audit 11/28/18 10:59:52 Oracle Obiee Developer: WILL Modifier: WILL 1 <*> Procedure Esophagogastroduodenoscopy 1 <+> Specialty 11/28/18 10:59:43 [employer] Obiee Developer: WILL Modifier: WILL <+> 1 Start <+> 1 Stop [facility] IntraOp Temp Regulation Devices Entry 1 Temp Regulation Temperature Warm blankets Regulation Device Temperature Full body Regulation Site Last Modified By: Sukumar Casanova RN 11/28/18 10:26:13 [facility] IntraOP Time Out Entry 1 Procedure to [...] Modified By: Sukumar Casanova RN 11/28/18 10:21:53 [facility] IntraOP Time Out Audit 11/28/18 10:21:53 [employer] Obiee Developer: WILL Modifier: ANDRADENgozi 1 <+> Time Out Pause Time 1 <*> Procedure to be Performed Esophagogastroduodenoscopy Case Comments <None> Finalized By: JODI PITT Document Signatures Signed By: Sukumar Casanova RN 11/28/18 11:00 JODI PITT 11/30/18 09:14 Unfinalized History Date/Time Username Reason for Unfinalizing Freetext Reason for Unfinalizing 11/30/18 09:13 WATTSDR Correct Billing documented in this encounter Plan of Treatment Not on file documented as of this encounter Visit Diagnoses Not on filedocumented in this encounter
--- OUTSIDE RECORDS SUMMARY | 2025-08-22 10:02 | XMS_ITS | Encounter Summary ---
Author Organization [employer] ([place], [place], [place], [place], [place]) Address [address] [place] [address] Care Team Providers Care Software Applications Engineer Name Role Phone Unavailable Primary Care Provider Unavailabl e Encounter Details Date Type Department Care Team (Late st Contact Info) Description 12/01/2018 Transcribed Document [facility] [place] Family Medicine [address] [place] [address] ProviderErika MD [address] [place] [address] Social History Tobacco Use [...]
--- OUTSIDE RECORDS SUMMARY | 2025-08-22 10:02 | XMS_ITS | Encounter Summary ---
Author Organization [employer] ([place], [place], [place], [place], [place]) Address [address] [place] [address] Care Team Providers Care Student Ministries Director Name Role Phone Unavailable Primary Care Provider Unavailabl e Encounter Details Date Type Department Care Team (Late st Contact Info) Description 11/16/2018 Transcribed Document [facility] [place] Family Medicine [address] [place] [address] ProviderErika MD [address] [place] [address] Social History Tobacco Use Types [...] : 11/17/2018 00:00 Atherosclerotic heart disease of [place] coronary artery without angina pectoris 11/17/2018 00:00 Essential (primary) hypertension 11/17/2018 00:00 Hypothyroidism, unspecified 11/17/2018 00:00 Nonrheumatic aortic (valve) insufficiency 11/17/2018 00:00 Restless legs syndrome 11/17/2018 00:00 Thoracic aortic aneurysm, without rupture 11/17/2018 00:00 Thrombocytopenia, unspecified 11/16/2018 00:00 Atherosclerotic heart disease of [place] coronary artery without angina pectoris 11/16/2018 [...] ROGER LEWIS, PT - 11/18/2018 16:07 EDT Trade Analyst Goals Mobility/Bed Mobility LTG PT Grid Goal [...] ROGER LEWIS, PT - 11/18/2018 16:07 EDT [place] PT Charges PT Eval Moderate Complexity : 1 ROGER LEWIS, PT - 11/18/2018 16:07 EDT Electronically signed by Parveen, Michele Conversion Automotive Parts Interpreter Cerner at 12/08/2022 12:19 PM CDT documented in this encounter Plan of Treatment Not on file documented as of this encounter Visit Diagnoses Not on filedocumented in this encounter
--- OUTSIDE RECORDS SUMMARY | 2025-08-22 10:02 | XMS_ITS | Encounter Summary ---
Author Organization [employer] ([place], [place], [place], [place], [place]) Address [address] [place] [address] Care Team Providers Care Bar Back Name Role Phone Unavailable Primary Care Provider Unavailabl e Encounter Details Date Type Department Care Team (Late st Contact Info) Description 11/29/2018 Transcribed Document [facility] [place] Family Medicine [address] [place] [address] ProviderErika MD [address] [place], [place] [phone] Social History Tobacco Use Types Packs/Day Years Used Date Smoking Tobacco: Never Assessed Sex and Gender Information Value Date Recorded Sex Assigned at Not on file Legal Sex Male 5:03 PM CDT Gender Identity Not on file Sexual Orientation Not on file documented as of this encounter Miscellaneous Notes * [employer]ner Conversion Note - Historical ProviderMD - 11/29/2018 2:00 AM CDT Marine Electronics Repairer Details Entered On: 11/29/2018 1:39 EDT Performed [...] EDT Electronically signed by Christina Saini Conversion Welding Equipment Sales Representative Cerner at 12/08/2022 12:30 PM CDT documented in this encounter Plan of Treatment Not on file documented as of this encounter Visit Diagnoses Not on filedocumented in this encounter
--- OUTSIDE RECORDS SUMMARY | 2025-08-22 10:02 | XMS_ITS | Encounter Summary ---
Author Organization [employer] ([place], [place], [place], [place], [place]) Address [address] [place] [address] Care Team Providers Care Threshing Operator Name Role Phone Unavailable Primary Care Provider Unavailabl e Encounter Details Date Type Department Care Team (Late st Contact Info) Description 11/29/2018 Transcribed Document [facility] [place] [address] [place] [address] ProviderErika MD [address] [place], [...] Conversion Note - Erika ProviderMD - 11/29/2018 5:00 PM CDT Chart Check - Review Order Profile Entered On: 11/29/2018 17:38 EDT Performed On: 11/29/2018 17:00 EDT by CHIQUI STATON RN Chart Check All Active Orders Reviewed : Yes CHIQUI STATON RN - 11/29/2018 17:38 EDT documented in this encounter Plan of Treatment Not on file documented as of this encounter Visit Diagnoses Not on filedocumented in this encounter
--- OUTSIDE RECORDS SUMMARY | 2025-08-22 10:02 | XMS_ITS | Encounter Summary ---
Author Organization [employer] ([place], [place], [place], [place], [place]) Address [address] [place] [address] Care Team Providers Care Map Colorer Name Role Phone Unavailable Primary Care Provider Unavailabl e Encounter Details Date Type Department Care Team (Late st Contact Info) Description 11/28/2018 Transcribed Document [facility] [place] Family Medicine [address] [place] [address] ProviderErika MD [address] [place], [place] [phone] Social History Tobacco Use Types Packs/Day Years [...]
--- OUTSIDE RECORDS SUMMARY | 2025-08-22 10:02 | XMS_ITS | Encounter Summary ---
Author Organization [employer] ([place], [place], [place], [place], [place]) Address [address] [place] [address] Care Team Providers Care Journeyman Welder Name Role Phone Unavailable Primary Care Provider Unavailabl e Encounter Details Date Type Department Care Team (Late st Contact Info) Description 11/16/2018 Transcribed Document [facility] [place] Family Medicine [address] [place] [address] ProviderErika MD [address] [place] [address] Social History Tobacco Use Types Packs/Day Years Used Date Smoking Tobacco: Never Assessed Sex and Gender Information Value Date Recorded Sex Assigned at Not on file Legal Sex Male 5:03 PM CDT Gender Identity Not on file Sexual Orientation Not on file documented as of this encounter Miscellaneous Notes * Cerner Conversion Note - Erika Jose MD - 11/16/2018 8:20 AM CDT [facility] Main OR IntraOp Summary Primary Physician: JULIO CESAR CARVALHO MD-CAT Finalized Date/Time: 11/17/18 10:03:54 Pt. Name: HAMILTON DOTTIE Ladan Gerber/Sex: 1940 Male Med Rec #: [id number] Physician: JULIO CESAR CARVALHO MD-CAT Financial #: [id number] Pt. Type: I Room/Bed: [facility] Admit/Disch: 11/16/18 06:45:00 - Institution: [facility] IntraOp Case Attendance Entry 1 Entry 2 Entry 3 Case Attendee JULIO CESAR CARVALHO MD-CAT ALTIZER, LISA E, RN Tye, [place], rail doweling machine operator Role Performed Surgeon/Proceduralist, Hand Ornament Maker, First Sales Department Supervisor First Time In 11/16/18 07:06:00 11/16/18 [...] CAROLYN, RN Role Performed Scrub, First Anesthesiologist Hand Ornament Maker, Second Time In 11/16/18 07:06:00 11/16/18 07:06:00 [...] [place] Pref Card Builder Role Performed Physician facility assistant Physician facility assistant Hand Ornament Maker, Second Time In 11/16/18 07:06:00 11/16/18 09:00:00 [...] Entry 12 Case Attendee Colette Alexander, LISETH Dimas Irwin, Tom, rail doweling machine operator Pref Card Builder Sales Department Supervisor Role Performed Scrub, First Sales Department Supervisor Sales Department Supervisor Time In 11/16/18 10:32:00 11/16/18 11:05:00 11/16/18 11:17:00 Time Out 11/16/18 10:47:00 11/16/18 11:18:00 11/16/18 12:13:00 Procedure Aortic Aneurysm Aortic Aneurysm Aortic Aneurysm Ascending Repair, CABG Ascending Repair, CABG Ascending Repair, CABG w Aortic Valve, w Aortic Valve, w Aortic Valve Transesophageal Transesophageal Echocardiogram Echocardiogram Other Attendee BREAK BRREAK Superficial Wound Closed By: Last Modified By: RADHA VALENCIA, RN RADHA VALENCIA, RADHA BOWLES RN 11/16/18 10:47:10 11/16/18 11:17:17 11/16/18 12:25:17 Entry 13 Case Attendee LISETH ROE, Sales Department Supervisor Role Performed Sales Department Supervisor Time In 11/16/18 12:13:00 Time Out 11/16/18 12:30:00 Procedure Aortic Aneurysm Ascending Repair, CABG w Aortic Valve, Transesophageal Echocardiogram Other Attendee Superficial Wound Closed By: Last Modified By: RADHA VALENCIA, RN 11/16/18 12:40:56 [facility] IntraOp Case Attendance Audit 11/16/18 12:40:56 Graduate Advisor: ALTIZEL Modifier: ALTIZEL 1 <+> Time Out [...] w Aortic Valve, Transesophageal Echocardiogram 11/16/18 12:25:17 Graduate Advisor: ALTIZEL Modifier: ALTIZEL 12 <+> Time Out 12 <*> Procedure Aortic Aneurysm Ascending Repair, CABG w Aortic Valve <+> 13 Case Attendee <+> 13 Role Performed <+> 13 Time In <+> 13 Procedure 11/16/18 11:17:39 Graduate Advisor: ALTIZEL Modifier: ALTIZEL <+> 12 Case Attendee <+> 12 Role Performed <+> 12 Time In <+> 12 Procedure 11/16/18 11:17:17 Graduate Advisor: ALTIZEL Modifier: ALTIZEL 3 <+> Time Out 3 <*> Procedure Transesophageal Echocardiogram <+> 11 Case Attendee <+> 11 Role Performed <+> 11 Time In <+> 11 Time Out <+> 11 Procedure <+> 11 Other Attendee 11/16/18 10:47:10 Graduate Advisor: ALTIZEL Modifier: ALTIZEL <+> 10 Case Attendee <+> 10 Role Performed <+> 10 Time In <+> 10 Time Out <+> 10 Procedure <+> 10 Other Attendee 11/16/18 09:58:31 Graduate Advisor: ALTIZEL Modifier: ALTIZEL <+> 1 Procedure <+> 2 Procedure <+> 3 Procedure <+> 4 Procedure <+> 5 Procedure <+> 6 Procedure 7 <*> Procedure Aortic Aneurysm Ascending Repair, CABG w Aortic Valve 8 <*> Procedure Aortic Aneurysm Ascending Repair, CABG w Aortic Valve 9 <*> Procedure Aortic Aneurysm Ascending Repair, CABG w Aortic Valve 11/16/18 09:50:06 Graduate Advisor: ALTIZEL Modifier: ALTIZEL 9 <+> Time Out 9 <*> Procedure Aortic Aneurysm Ascending Repair, CABG w Aortic Valve 11/16/18 09:39:14 Graduate Advisor: ALTIZEL Modifier: ALTIZEL <+> 9 Case Attendee <+> 9 Role Performed <+> 9 Time In <+> 9 Procedure <+> 9 Other Attendee 11/16/18 09:28:12 Graduate Advisor: ALTIZEL Modifier: ALTIZEL <+> 8 Case Attendee <+> 8 Role Performed <+> 8 Time In <+> 8 Procedure 11/16/18 08:24:20 Graduate Advisor: ALTIZEL Modifier: ALTIZEL 7 <+> Time Out 7 <*> Procedure Aortic Aneurysm Ascending Repair, CABG w Aortic Valve 11/16/18 08:21:45 Graduate Advisor: ALTIZEL Modifier: ALTIZEL <+> 6 Time Out 11/16/18 08:10:59 Graduate Advisor: ALTIZEL Modifier: ALTIZEL 6 <*> Time In 11/16/18 07:00:00 <+> 7 Case Attendee <+> 7 Role Performed <+> 7 Time In <+> 7 Procedure 11/16/18 07:19:51 Graduate Advisor: ALTIZEL Modifier: ALTIZEL <+> 2 Time In <+> 3 Time In <+> 4 Time In <+> 5 Time In 11/16/18 07:19:37 Graduate Advisor: ALTIZEL Modifier: ALTIZEL <+> 1 Time In <+> 2 Case Attendee <+> 2 Role Performed <+> 3 Case Attendee <+> 3 Role Performed <+> 4 Case Attendee <+> 4 Role Performed <+> 5 Case Attendee <+> 5 Role Performed <+> 6 Case Attendee <+> 6 Role Performed <+> 6 Time In [facility] IntraOp Case Times Entry 1 Patient In Room Time 11/16/18 07:06:00 Out Room Time 11/16/18 12:30:00 Anesthesia Start Time 11/16/18 07:06:00 Stop Time 11/16/18 12:30:00 Anesthesia Ready 11/16/18 07:06:00 Surgery / Procedure Times Start Time 11/16/18 08:20:00 Stop Time 11/16/18 12:22:00 Last Modified By: RADHA VALENCIA RN 11/16/18 07:17:32 [facility] IntraOp Case Times Audit 11/16/18 12:30:30 Graduate Advisor: ALTIZEL Modifier: ALTIZEL <+> 1 Out Room Time <+> 1 Stop Time <+> 1 Stop Time 11/16/18 08:21:57 Graduate Advisor: ALTIZEL Modifier: ALTIZEL <+> 1 Start Time [facility] IntraOp Cautery Entry 1 ESU Identification Cautery Type Monopolar ESU ID Number [id number] ID Type Hospital Number Cautery Settings Cut [...] Modified By: RADHA VALENCIA RN 11/16/18 08:42:12 [facility] IntraOp Communication Entry 1 Entry 2 Entry [...] RADHA VALENCIA RN RADHA VALENCIA, RN RADHA VALENCIA RN 11/16/18 09:10:41 11/16/18 10:22:56 11/16/18 11:31:42 Entry 7 Entry 8 Entry 9 Communication To Other Family/Significant other Other Comment CTVU-OFF PUMP CTVU-CLOSING Communication By RADHA VALENCIA, RN RADHA VALENCIA, RN RADHA VALENCIA, RN Date and Time 11/16/18 11:38:00 11/16/18 12:01:00 11/16/18 12:04:00 Last Modified By: RADHA VALENCIA RN RADHA VALENCIA, RN ALTRADHA ROMERO RN 11/16/18 11:53:58 11/16/18 12:13:00 11/16/18 12:13:00 [facility] IntraOp Communication Audit 11/16/18 12:13:00 Graduate Advisor: ALTIZEL Modifier: ALTIZEL <+> 8 Communication By <+> 8 Date and Time <+> 8 Communication To <+> 9 Communication By <+> 9 Date and Time <+> 9 Communication To <+> 9 Comment 11/16/18 11:53:58 Graduate Advisor: ALTIZEL Modifier: ALTIZEL <+> 7 Communication By <+> 7 Date and Time <+> 7 Communication To <+> 7 Comment 11/16/18 11:31:42 Graduate Advisor: ALTIZEL Modifier: ALTIZEL <+> 6 Communication By <+> 6 Date and Time <+> 6 Communication To 11/16/18 10:22:56 Graduate Advisor: ALTIZEL Modifier: ALTIZEL <+> 5 Communication By <+> 5 Date and Time <+> 5 Communication To 11/16/18 09:10:41 Graduate Advisor: ALTIZEL Modifier: ALTIZEL <+> 3 Communication By <+> 3 Date and Time <+> 3 Communication To <+> 4 Communication By <+> 4 Date and Time <+> 4 Communication To <+> 4 Comment [facility] IntraOp Counts Verification Entry 1 Entry 2 [...] LISA E, RN 11/16/18 07:20:29 11/16/18 11:54:29 [facility] IntraOp Counts Verification Audit 11/16/18 11:54:29 Graduate Advisor: ALTIZEL Modifier: ALTIZEL <+> 2 Procedure <+> 2 Count Type <+> 2 Counts Verification Sequence <+> 2 Count Results <+> 2 Count Performed By (Scrub) <+> 2 Count Performed By (RN) 11/16/18 09:58:33 Graduate Advisor: ALTIZEL Modifier: ALTIZEL 1 <*> Procedure Aortic Aneurysm Ascending Repair, CABG w Aortic Valve [facility] IntraOp Counts Final Entry 1 Procedure Aortic Aneurysm Ascending Repair, CABG w Aortic Valve, Transesophageal Echocardiogram Final Count Info Count Type Sponge, Sharps, Instrument, Miscellaneous Counts Verification Skin Closure/end of Sequence procedure Count Results Correct, surgeon notified Counts Performed By Count Performed By MELODY MASON (Scrub) Count Performed By RADHA VALENCIA RN (RN) Last Modified By: RADHA VALENCIA RN 11/16/18 12:01:46 [facility] IntraOp Cultures and Spec Summary Entry 1 Cultrures and Specimens Specimen Ordered: Yes Specimens Types Pathology Specimen(s) Labeled Pathology and Sent to Last Modified By: RADHA VALENCIA RN 11/16/18 09:22:38 [facility] IntraOp Departure from OR Entry 1 Integumentary Assessment Integumentary WDL Assessment WDL Transfer/Handoff Transfer to ICU - Cardiovascular Post-op Transport Bed (including Via specialty) Patient Transport SHERRY NICHOLS, Accompanied by Tye KHAN Tom, rail doweling machine operator Last Modified By: RADHA VALENCIA RN 11/16/18 08:42:33 [facility] IntraOp Drains and Tubes Entry 1 Entry [...] LISA E, RN 11/16/18 08:42:54 11/16/18 08:42:54 [facility] IntraOp Dressing and Packing Entry 1 Entry 2 Type Dressing Dressing Location Mediastinum Mediastinum Wound Dressing Item 4x4's, Skin Closure Glue 4x4's Wound Packing Type Tape Type Supplemental Applications Applied By Other Comments Soft cloth paper tape Soft cloth paper tape Last Modified By: RADHA VALENCIA RN ALTIZER, LISA E, RN 11/16/18 08:43:06 11/16/18 08:53:50 [facility] IntraOp Dressing and Packing Audit 11/16/18 08:53:50 Graduate Advisor: ALTIZEL Modifier: ALTIZEL <+> 2 Type <+> 2 Location <+> 2 Wound Dressing Item <+> 2 Other Comments [facility] IntraOp Fire Risk Assessment Entry 1 Fire [...] Modified By: RADHA VALENCIA RN 11/16/18 07:20:01 [facility] IntraOp Fire Risk Assessment Audit 11/16/18 08:43:21 Graduate Advisor: SAIGEIZEL Modifier: ALTIZEL 1 <*> Fire Risk Assessment Verified 11/16/18 07:19:00 Date/Time [facility] IntraOp General Case 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 Case Information OR OR 14 [facility] Case Level 2 Room Verified Yes Wound Class I - Clean Specialty SN Cardio Thoracic Anesthesia Type General ASA Class 4 Diagnosis Preop Diagnosis CAD, AORTIC VALVE DISEASE, ASCENDING AORTIC ANEURSYM Postop Diagnosis SEE MD POST OP NOTE Last Modified By: RADHA VALENCIA RN 11/16/18 08:50:46 [facility] IntraOp Implant Log Entry 1 Entry 2 Type Implant (Synthetic) Tissue Implant (Biologic) Implant Log Implant Type Grafts, non-biological Tissue Implant Type Heart valve Implant [facility] PLAT VALVE AORT ROOT Identification [id number] Description Implant Quantity 1 1 Implant Site AORTA AORTA Implant Identification Model Number Implant [id number] Identification Serial Number Implant Identification Lot Number Implant Deaninge Ind:Maquet:Cv Medtronic:Card Surg:Tech Identification Parts Room Assistant Name: Implant [id number] Identification Catalog Number Implant Size Implant Has an Yes Yes Expiration Date Implant Expiration 08/23/23 05/20/22 Date Wasted Radioactive Material Time Implanted Tissue Implant Continue for Tissue Implant Documentation Tissue Identification Number Graft Prep Per Yes Parts Room Assistant Instructions: Tissue Preparation N/A Method: Reconstitution Solution: Reconstitution Solution Lot Number Reconstitution Solution Expiration Date: Thawing Solution Thawing Solution Lot Number Thawing Solution Expiration Date Preparation NACL Materials, Other Preparation [id number] Materials, Other Lot Number Preparation 06/22/22 Materials, Other Expiration Date Tissue MARLON, MELODY Prepared/Processed By Parts Room Assistant Yes Paperwork Completed Implant Type Comment Last Modified By: RADHA VALENCIA RN ALTIZER, LISA E, RN 11/16/18 09:42:38 11/16/18 09:42:38 [facility] IntraOp Intraoperative Assessment Entry 1 Handoff Reported [...] Modified By: RADHA VALENCIA RN 11/16/18 08:25:54 [facility] IntraOp Intraoperative Equipment Entry 1 Equipment Intraop Monitoring Blood Pressure Non-Invasive BP Device Source Blood Pressure Arm, right upper Location Pulse Oximeter Hand, left Probe Site Antiembolic Devices Scopes Photo/Video Documentation Last Modified By: RADHA VALENCIA RN 11/16/18 08:51:22 [facility] IntraOp Medication Admin Entry 1 Entry 2 Entry 3 Medication/Irrigant papverine HCL 30mg/ml lidocaine 1% 50ml vial NS 0.9% 50ml injection 10ml - [id number] - [id number] - [id number] Combo Med List Time Administered Route of FLUSH MAMMARY LOCAL FLUSH Administration Dose Dose 150 8 30 Unit of Measure mg ml ml Volume Administered By JULIO CESAR CARVALHO MD-[facility] ERASMO LÓPEZ PA MEECE, PAUL, PA Procedure Irrigation Irrigant Volume In Irrigant Volume Out Last Modified By: RADHA VALENCIA RN ALTIZER, LISA E, RN ALTIZER, LISA E, RN 11/16/18 08:52:11 11/16/18 11:07:14 11/16/18 08:52:11 Entry 4 Entry 5 Medication/Irrigant Ancef 1Gm advantage KT TISSEEL VH SD vial - [id number] Combo Med List Time Administered Route of IRRIGATION TOPICAL Administration Dose Dose 1 10 Unit of Measure gram ml Volume Administered By JULIO CESAR CARVALHO MD-CAT JULIO CESAR CARVALHO MD-CAT Procedure Irrigation Irrigant Volume In Irrigant Volume Out Last Modified By: RADHA VALENCIA RN ALTIZER, LISA E, RN 11/16/18 08:52:11 11/16/18 09:49:07 [facility] IntraOp Medication Admin Audit 11/16/18 11:07:14 Graduate Advisor: ALTIZEL Modifier: ALTIZEL 2 <*> Medication/Irrigant lidocaine 1% 50ml vial - [id number] 2 <*> Administered By ALLA SORIANO RN 11/16/18 09:49:07 Graduate Advisor: ALTIZEL Modifier: ALTIZEL <+> 5 Medication/Irrigant <+> 5 Route of Administration <+> 5 Administered By <+> 5 Dose <+> 5 Unit of Measure [facility] IntraOp Patient Positioning Entry 1 Procedure Aortic [...] Modified By: RADHA VALENCIA RN 11/16/18 08:49:03 [facility] IntraOp Patient Positioning Audit 11/16/18 09:58:34 Graduate Advisor: ALTIZEL Modifier: ALTIZEL 1 <*> Procedure Aortic Aneurysm Ascending Repair, CABG w Aortic Valve [facility] IntraOp Sign In Entry 1 Patient, Site, [...] Modified By: RADHA VALENCIA RN 11/16/18 07:19:47 [facility] IntraOp Sign Out Entry 1 RN Confirmation [...] Modified By: RADHA VALENCIA RN 11/16/18 12:41:17 [facility] IntraOp Skin Prep Entry 1 Procedure Transesophageal Echocardiogram Prescribed Yes Pre-Surgical Prep Completed Prep Area Chin to TOES Intraop Prep Integumentary WDL Assessment WDL Patients Normal WDL Integumentary Variance(s) Prep Agents Chloraprep Prep by RADHA VALENCIA RN Skin Prep Comment Xander Soriano also prepped Hair Removal Last Modified By: RADHA VALENCIA RN 11/16/18 08:52:45 [facility] IntraOp Skin Prep Audit 11/16/18 09:58:34 Graduate Advisor: DAGOBERTOGinny Modifier: ALTIZEL <+> 1 Procedure [facility] IntraOp Surgical Procedures Entry 1 Entry 2 [...] RN ALTIZER, LISA E, RN ALTIZER, LISA E RN 11/16/18 09:57:36 11/16/18 08:49:06 11/16/18 09:58:24 [facility] IntraOp Surgical Procedures Audit 11/16/18 12:41:26 Graduate Advisor: ALTIZEL Modifier: ALTIZEL <+> 1 Stop <+> 2 Stop <+> 3 Stop 11/16/18 10:51:43 Graduate Advisor: ALTIZEL Modifier: ALTIZEL 1 <*> Procedure Aortic Aneurysm Ascending Repair 11/16/18 10:17:14 Graduate Advisor: ALTIZEL Modifier: ALTIZEL <+> 3 Start 11/16/18 09:58:24 Graduate Advisor: ALTIZEL Modifier: ALTIZEL <+> 3 Procedure <+> 3 Primary Procedure <+> 3 Primary Surgeon <+> 3 Specialty <+> 3 Wound Class <+> 3 Anesthesia Type 11/16/18 09:57:36 Graduate Advisor: ALTIZEL Modifier: ALTIZEL 1 <*> Procedure Aortic Aneurysm Ascending Repair 1 <*> Additional Procedure Description (ASCENDING AORTIC ANEURYSM REPAIR, CABG, POSSIBLE AORTIC VALVE REPLACEMENT) [facility] IntraOp Temp Regulation Devices Entry 1 Entry 2 Temp Regulation Temperature Forced Air Warming Warm blankets Regulation Device device Temperature [id number] Regulation Device Serial/Unit Number Temperature Lower body Full body Regulation Site Temperature Device 43 DEG C Setting Temperature RADHA VALENCIA RN ALTIZER, LISA E RN Regulation Device Applied by Temperature CATIA HUGGER TURNED ON Regulation Comment AFTER AORTIC CROSS CLAMP REMOVED Last Modified By: RADHA VALENCIA RN ALTIZER, LISA E, RN 11/16/18 08:53:25 11/16/18 08:53:25 [facility] IntraOP Time Out Entry 1 Procedure to [...] Modified By: RADHA VALENCIA RN 11/16/18 09:58:34 [facility] IntraOP Time Out Audit 11/16/18 09:58:34 Graduate Advisor: SAIGEUMER Modifier: ALTIZEL 1 <*> Procedure to be Performed Aortic Aneurysm Ascending Repair, CABG w Aortic Valve Case Comments <None> Finalized By: JODI PITT Document Signatures Signed By: RADHA VALENCIA RN 11/16/18 12:41 JODI PITT 11/17/18 10:03 Unfinalized History Date/Time Username Reason for Unfinalizing Freetext Reason for Unfinalizing 11/17/18 09:59 WATTSDR Correct Billing documented in this encounter Plan of Treatment Not on file documented as of this encounter Visit Diagnoses Not on filedocumented in this encounter
--- OUTSIDE RECORDS SUMMARY | 2025-08-22 10:02 | XMS_ITS | Encounter Summary ---
Author Organization [employer] ([place], [place], [place], [place], [place]) Address [address] [place] [address] Care Team Providers Care Termite Control Technician Name Role Phone Unavailable Primary Care Provider Unavailabl e Encounter Details Date Type Department Care Team (Late st Contact Info) Description 11/22/2018 Transcribed Document [facility] [place] Family Medicine [address] [place] [address] ProviderErika MD [address] [place], [...] Conversion Note - Erika ProviderMD - 11/22/2018 5:00 AM CDT Chart [...]
--- OUTSIDE RECORDS SUMMARY | 2025-08-22 10:02 | XMS_ITS | Encounter Summary ---
Author Organization [employer] ([place], [place], [place], [place], [place]) Address [address] [place] [address] Care Team Providers Care Environmental Protection Geologist Name Role Phone Unavailable Primary Care Provider Unavailabl e Encounter Details Date Type Department Care Team (Late st Contact Info) Description 11/22/2018 Transcribed Document [facility] [place] [address] [place] [address] ProviderErika MD [address] [place] [address] Social History Tobacco Use Types Packs/Day Years Used Date Smoking Tobacco: Never Assessed Sex and Gender Information Value Date Recorded Sex Assigned at Not on file Legal Sex Male 5:03 PM CDT Gender Identity Not on file Sexual Orientation Not on file documented as of this encounter Miscellaneous Notes * Cerner Conversion Note - Erika ProviderMD - 11/22/2018 3:00 AM CDT Nutrition Assessment Entered On: 11/22/2018 8:52 EDT Performed On: 11/22/2018 8:[address], TAMMIE Nutrition Assessment Nutrition Assessment Reason : Follow Up, Nutrition support DAVION GREEN RD, TAMMIE - 11/22/2018 8:48 EDT Current Nutrition Regimen Comment : 11/22: Pt remains on TF, tolerating Jevity 1.5 at goal rate. Did have BM yesterday. COAGULATOR okayed pt for po diet this am- follow up after breakfast and pt had eating 50% of meal. Pt stated he would enjoy ensure as well. Spoke with RN about observing 1-2 more meals before removing corpak and speaking with MD as well. 11/18: Check on: Pt is on Osmolite 1.5 @ 50m/hr + 1 [id number] daily advancing toward goal of 60ml/hr + 1 [id number] daily. No COAGULATOR consult noted, discussed if any concern for [...] Support: Jevity 1.5 @ 60ml/hr + 1 [id number] daily, HT: 185cm (6'1) ADMIT WT: 79kg/174# Current Wt: 81.6kg (11/17), 82.4kg (11/18) , 84.3 kg (11/22) BMI: 23 IBW: 79kg/100% EST NEEDS: 5657-3040 kcal (25-30kcal/kg), 95g pro (1.2g/kg) DAVION GREEN [...] 11/22/2018 12:04 EDT Electronically signed by Parveen, [facility] Conversion Construction Supervisor/Carpenter Cerner at 12/08/2022 12:11 PM CDT documented in this encounter Plan of Treatment Not on file documented as of this encounter Visit Diagnoses Not on filedocumented in this encounter
--- OUTSIDE RECORDS SUMMARY | 2025-08-22 10:02 | XMS_ITS | Encounter Summary ---
Author Organization [employer] ([place], [place], [place], [place], [place]) Address [address] [place] [address] Care Team Providers Care Food Technologist Name Role Phone Unavailable Primary Care Provider Unavailabl e Encounter Details Date Type Department Care Team (Late st Contact Info) Description 11/20/2018 Transcribed Document [facility] Pulm & Critical Care Medicine [address] [place] [address] [address] [place] [address] Eloy Rodrigues MD [address] [facility] [address] [place] [address] Social History Tobacco Use Types [...] 16:32:27 Trans: 11/20/2018 22:52:43 Processed: 11/22/2018 09:57:30 Eastern CC1: Eloy Rodrigues M.D. documented in this encounter Plan of Treatment Not on file documented as of this encounter Visit Diagnoses Not on filedocumented in this encounter
--- OUTSIDE RECORDS SUMMARY | 2025-08-22 10:02 | XMS_ITS | Encounter Summary ---
Author Organization [employer] ([place], [place], [place], [place], [place]) Address [address] [place] [address] Care Team Providers Care Channel Cementer Insole Machine Name Role Phone Unavailable Primary Care Provider Unavailabl e Encounter Details Date Type Department Care Team (Late st Contact Info) Description 11/28/2018 Transcribed Document [facility] [place] Family Medicine [address] [place] [address] ProviderErika MD [address] [place], [place] [id number] Social History Tobacco Use Types Packs/Day Years [...] Spiritual Care Reason for Visit : Other: OPTICIAN Intervention/Comment/Summary Points : Pt fell back to sleep after RNs finished assessing pt. No needs at this time. Rastafarian Preference : Taoism MALU SHEPARD Chaplain-Non Cert - 11/28/2018 5:34 EDT documented in this encounter Plan of Treatment Not on file documented as of this encounter Visit Diagnoses Not on filedocumented in this encounter
--- OUTSIDE RECORDS SUMMARY | 2025-08-22 10:02 | XMS_ITS | Encounter Summary ---
Author Organization [employer] ([place], [place], [place], [place], [place]) Address [address] [place] [address] Care Team Providers Care Banquet Manager Name Role Phone Unavailable Primary Care Provider Unavailabl e Encounter Details Date Type Department Care Team (Late st Contact Info) Description 11/22/2018 Transcribed Document [facility] [place] Medicine [address] [place] [address] ProviderErika MD [address] [place] [address] Social History Tobacco Use Types [...] unspecified 11/17/2018 00:00 Atherosclerotic heart disease of [place] coronary artery without angina pectoris 11/17/2018 00:00 Essential (primary) hypertension 11/17/2018 00:00 Hypothyroidism, unspecified 11/17/2018 00:00 Nonrheumatic aortic (valve) insufficiency 11/17/2018 00:00 Restless legs syndrome 11/17/2018 00:00 Thoracic aortic aneurysm, without rupture 11/17/2018 00:00 Thrombocytopenia, unspecified 11/16/2018 00:00 Atherosclerotic heart disease of [place] coronary artery without angina pectoris 11/16/2018 00:00 [...] TARI MOORE OTR/L 11/23/2018 15:10 EDT Hand Auto Body Estimator Test : trace with digits TARI MOORE OTRL 11/23/2018 15:10 EDT Self Care/Home Management, OT [...] Rehabilitation Potential, OT : Guarded TARI MOORE DEISIR/L 11/23/2018 15:10 EDT Plan of Care, OT OT Tx Plan/Goals Established w Patient : Yes OT Frequency Rehab : Five days per week OT Duration Rehab : Fourteen days OT Treatments Planned : Activities of daily living, Balance training, Caregiver training, Functional mobility training, Neuromuscular reeducation, Safety education, Therapeutic activities, Therapeutic exercises TERESABRYANTARIMARY JANE ANGELES/L - 11/23/2018 15:10 EDT Fpc Goals, OT Self Feeding LTG Grid Goal #1 Activity : Self feeding Assist : Independent, modified Date to Meet : 12/07/2018 EDT Goal Status : Initial MOOREBRYANTARIDEISI ANGELESR/Ginny - 11/23/2018 15:10 EDT Grooming LTG Grid Goal #1 Activity : Grooming Assist : Assist, minimal Date to Meet : 12/07/2018 EDT Goal Status : Initial goal TERESABRYANTARIDEISI ANGELESR/L - 11/23/2018 15:10 EDT Dressing, Upper Body LTG Grid Goal #1 Activity : Dressing, Upper Body Assist : Assist, minimal Date to Meet : 12/07/2018 EDT Goal Status : Initial goal TERESABRYANTARIMARY JANE ANGELES/Ginny - 11/23/2018 15:10 EDT Toilet Transfer LTG [...] 12/07/2018 EDT Goal Status : Initial goal MOOREBRYANTARIDEISI ANGELESR/L - 11/23/2018 15:10 EDT Other LTG Grid [...] goal Initial goal Initial goal TARI MOORE OTR/L - 11/23/2018 [...] for Treatment : see poc TARI MOORE OTR/Ginny - 11/23/2018 15:10 EDT Pain Assessment Pain Score Post-Intervention. : not rated TARI MOORE OTR/Ginny - 11/23/2018 15:10 EDT Image 1 - Images currently included in the form version of this document have not been included in the text rendition version of the form. Anticipated Discharge Needs, OT/PT Anticipated Discharge to OT : Unit, rehabilitation TARI MOORE OTR/Ginny - 11/23/2018 15:[address] [facility] OT Charges OT Eval High Complexity : 1 TARI MOORE OTR/Ginny - 11/23/2018 15:10 EDT documented in this encounter Plan of Treatment Not on file documented as of this encounter Visit Diagnoses Not on filedocumented in this encounter
--- OUTSIDE RECORDS SUMMARY | 2025-08-22 10:02 | XMS_ITS | Encounter Summary ---
Author Organization [employer] ([place], [place], [place], [place], [place]) Address [address] [place] [address] Care Team Providers Care Friction Welding Machine Operator Name Role Phone Unavailable Primary Care Provider Unavailabl e Encounter Details Date Type Department Care Team (Late st Contact Info) Description 11/28/2018 Transcribed Document [facility] [place] [facility] [place] [address] [place] [address] ProviderErika MD [address] [place], [place] [phone] Social History Tobacco Use Types Packs/Day Years [...] 1940 Associated Diagnoses: CAD (coronary artery disease), [place] coronary artery; Thrombocytopenia; Coronary artery disease; HTN [...] mg, Oral, At Bedtime saliva substitutes: 1 [place], Buccal, Q2H, PRN: Other (See Comment) warfarin: [...] Q1H saliva substitute liq 59 mL 1 [place], Buccal, Q2H Problem list: Medical Aneurysm, thoracic aortic / SNOMED CT 6969942008 / Confirmed Aortic valve insufficiency / SNOMED CT 273131054 / Confirmed Arthritis / SNOMED CT 4730512 / Confirmed At risk for sleep apnea / IMO [id number] / Confirmed CAD (coronary artery disease) / SNOMED CT 57037925 / Confirmed HTN - Hypertension / SNOMED CT 8267589234 / Confirmed Hypothyroidism / SNOMED CT 95426652 / Confirmed Frequent urination / SNOMED CT 006523034 / Confirmed Nocturia / SNOMED CT 601017980 / Confirmed Prostate stricture / SNOMED CT 39009156 / Confirmed, Active Problems (13) Aneurysm, thoracic aortic Aortic valve insufficiency Arthritis At risk for sleep apnea CAD (coronary artery disease) Cancer of skin of face Disorder of prostate ( enlarged) Frequent urination HTN - Hypertension Hypothyroidism Nocturia Prostate stricture Restless legs syndrome Physical Examination VS/Measurements Vitals Signs (last 24 hrs) Last Charted Minimum Maximum Temp 97.5 (NOV 28 08:34) 97.5 (NOV 28 08:34) 97.5 (NOV [...] swelling - improved today. Integumentary: Warm, Dry, [place], incision is C/D/I. Neurologic: Alert, Oriented, left [...] (Current Encounter/Past 24 Hours) PT 20.8 Second(s) DC 11/28/2018 09:08 PTT 27.6 Second(s) 11/28/2018 08:53 INR 2.0 DC 11/28/2018 09:08 . Impression and Plan Plan: [...] of discharge- CM has sent information to [facility] -Transfer to [facility] 11/24/18 -POD#8 -Awaiting transfer to [facility] -Awaiting response from [facility] 11/25/18 -left upper extremity venous doppler - doppler this am positive for LUE DVT - will start coumadin and heparin bridge -awaiting [facility] 11/26/18 -Heparin drip and coumadin for LUE DVT Left arm swelling improved today INR 1.1 today, INR goal 2-3 Possibly transfer to [facility] this weekend 11/27/18: Left arm swelling continues to improve Continues on Coumadin and heparin bridge INR: 1.4 (1.1 yesterday) goal: 2 to 3 [facility] soon,? Tomorrow 11/28/18 BP in 70s-80s this [...] Prophylaxis: SCDs Diagnosis CAD (coronary artery disease), [place] coronary artery - Admitting, Medical. Thrombocytopenia - [...]
--- OUTSIDE RECORDS SUMMARY | 2025-08-22 10:02 | XMS_ITS | Referral Summary ---
Author Organization [employer] ([place], [place], [place], [place], [place]) Address [address] [place] [address] Care Team Providers Care Bundle Helper Name Role Phone Unavailable Primary Care [...]
--- OUTSIDE RECORDS SUMMARY | 2025-08-22 10:02 | XMS_ITS | Encounter Summary ---
Author Organization [employer] ([place], [place], [place], [place], [place]) Address [address] [place] [address] Care Team Providers Care Microbiology Professor Name Role Phone Unavailable Primary Care Provider Unavailabl e Encounter Details Date Type Department Care Team (Late st Contact Info) Description 11/20/2018 Transcribed Document [facility] [place] [address] [place] [address] ProviderErika MD [address] [place], [...] Note - Erika Jose MD - 11/20/2018 9:36 AM CDT MARINE ENGINE MACHINIST APPRENTICE Note Entered On: 11/24/2018 13:28 EDT Performed On: 11/24/2018 13:19 EDT by MAMTA SOLO, MARINE ENGINE MACHINIST APPRENTICE Dysphagia Exercise Technique Dysphagia Therapy/Treatment Type #1 [...] Technique PO Trial #1 Consistency Trialed : Sims Oral Symptoms : None observed Pharyngeal Signs [...] 13:19 EDT Swallow Plan/Goals Swallow LTG Grid MARINE ENGINE MACHINIST APPRENTICE Associate Professor Of Automation Goal #1 MARINE ENGINE MACHINIST APPRENTICE Associate Professor Of Automation Goal #2 Swallow LTG : Establish safe [...] Met : 11/22/2018 EDT MAMTA SOLO, [facility] - 11/24/2018 13:19 EDT MAMTA SOLO MARINE ENGINE MACHINIST APPRENTICE - 11/24/2018 13:19 EDT MAMTA SOLO, MARINE ENGINE MACHINIST APPRENTICE - 11/24/2018 13:19 EDT MAMTA SOLO, MARINE ENGINE MACHINIST APPRENTICE - 11/24/2018 13:19 EDT LTG Lang/Comm/Cog LTG MARINE ENGINE MACHINIST APPRENTICE Snf Goal 1 Associate Professor Of Automation Goal 2 Goals : Improved spoken language expression at the time of discharge Improved auditory/spoken language comprehension at the time of discharge Status : Initial Initial MAMTA SOLO, [facility] - 11/24/2018 13:19 EDT MAMTA SOLO, ERIC - 11/24/2018 13:19 EDT STG Lang_Comm_Cog Motor Speech STG Grid Goal #1 Activity : Improve intelligibility of speech Status : Initial MAMTA SOLO [facility] - 11/24/2018 13:19 EDT Auditory Comprehension Grid Goal #1 Goal #2 Activity : Follow directions, 3 step commands simple Comprehend paragraph complex MAMTA SOLO [facility] - 11/24/2018 13:19 EDT MAMTA SOLO [facility] - 11/24/2018 13:19 EDT Verbal Expression STG Grid Goal #1 Activity : Generate items in a category MAMTA SOLO [facility] - 11/24/2018 13:19 EDT Reading Comprehension STG Grid Goal #1 Activity : Visual perception deficits MAMTA SOLO [facility] - 11/24/2018 13:19 EDT Attention STG Grid Goal #1 Activity : Other: Probe Status : Goal met Date Met : 11/24/2018 TGT MAMTA SOLO [facility] - 11/24/2018 13:19 EDT Memory STG Grid Goal #1 Goal #2 Goal #3 Activity : Other: Probe Improve short term functional delayed Improve short term working memory Status : Goal met Initial Initial Date Met : 11/24/2018 TGT MAMTA SOLO MARINE ENGINE MACHINIST APPRENTICE - 11/24/2018 13:19 EDT MAMTA SOLO [facility] - 11/24/2018 13:19 EDT MAMTA SOLO [facility] - 11/24/2018 13:19 EDT Problem [...] SOLO SLP - 11/24/2018 13:19 EDT Subjective/Assessment/Plan MARINE ENGINE MACHINIST APPRENTICE Patient Concern : Pt was awake and lying in bed. Agreeable to tx. MARINE ENGINE MACHINIST APPRENTICE Therapy/Treatment Asmt Cmnt : Pt seen for speech and dysphagia tx. Great participation in tx. Requires continuous cues for accurate completion of timing exercises. No overt pharyngeal patterns with nectar liquids. Further cogntive probe completed. Pt presents with a moderate cognitive deficits characterized by impairments in memory, orientation, and problem solving. POC updated. MARINE ENGINE MACHINIST APPRENTICE Plan : Continue per POC. Repeat swallow study Thursday. MAMTA SOLO SLP - 11/24/2018 13:19 EDT Education Barriers To Learning : Cognitive deficit Individuals Taught : Patient Readiness to Learn : Cooperative Readiness to Learn : Explanation MAMTA SOLO SLP - 11/24/2018 13:19 EDT MARINE ENGINE MACHINIST APPRENTICE Education Assessment Grid 1 Evaluation Results : Verbalizes understanding MAMTA SOLO SLP - 11/24/2018 13:19 EDT MARINE ENGINE MACHINIST APPRENTICE Education Assessment Grid 2 Treatment Plan : Verbalizes understanding MAMTA SOLO SLP - 11/24/2018 13:[address] [facility] MARINE ENGINE MACHINIST APPRENTICE Charges Speech Therapy : 1 Treatment-Swallowing : 1 MAMTA SOLO SLP - 11/24/2018 13:19 EDT Anticipated Discharge Needs, MARINE ENGINE MACHINIST APPRENTICE Anticipated Discharge to OT : Rehab, high intensity Recommend Continued Therapy at Discharge : Yes MAMTA SOLO SLP - 11/24/2018 13:19 EDT documented in this encounter Plan of Treatment Not on file documented as of this encounter Visit Diagnoses Not on filedocumented in this encounter
--- OUTSIDE RECORDS SUMMARY | 2025-08-22 10:02 | XMS_ITS | Encounter Summary ---
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
--- OUTSIDE RECORDS SUMMARY | 2025-08-22 10:02 | XMS_ITS | Encounter Summary ---
Author Organization [employer] ([place], [place], [place], [place], [place]) Address [address] [place] [address] Care Team Providers Care Roller Helper Name Role Phone Unavailable Primary Care Provider Unavailabl e Encounter Details Date Type Department Care Team (Late st Contact Info) Description 11/29/2018 Transcribed Document [facility] [place] [facility] [place] [address] ProviderErika MD [address], [place] [phone] Social History Tobacco Use Types Packs/Day Years [...]
--- OUTSIDE RECORDS SUMMARY | 2025-08-22 10:02 | XMS_ITS | Encounter Summary ---
Author Organization [employer] ([place], [place], [place], [place], [place]) Address [address] [place] [address] Care Team Providers Care Engineering Project Manager Name Role Phone Unavailable Primary Care Provider Unavailabl e Encounter Details Date Type Department Care Team (Late st Contact Info) Description 12/01/2018 Transcribed Document [facility] [place] [address] [place] [address] ProviderErika MD [address] [place], [place] [id number] Social History Tobacco Use Types Packs/Day Years [...] 1940 Associated Diagnoses: CAD (coronary artery disease), [place] coronary artery; Thrombocytopenia; Coronary artery disease; HTN [...] complaints. 11/30/18: No complaints, transferred back to [facility] yesterday 12/01/18: Up to chair today, hopefully to [facility] today Review of Systems Constitutional: Weakness. [...] Musculoskeletal: left arm swelling. Integumentary: Warm, Dry, [place], incision is C/D/I. Neurologic: Alert, left sided [...] (Current Encounter/Past 24 Hours) PT 14.6 Second(s) MT 12/01/2018 06:53 INR 1.4 MT 12/01/2018 06:53 . Impression and Plan Plan: [...] time of discharge- has sent information to [facility] -Transfer to [facility] 11/24/18 -POD#8 -Awaiting transfer to [facility] -Awaiting response from [facility] 11/25/18 -POD#9 -left upper extremity venous doppler - doppler this am positive for LUE DVT - will start coumadin and heparin bridge -awaiting [facility] 11/26/18 -POD#10 -Heparin drip and coumadin for LUE DVT -Left arm swelling improved today -INR 1.1 today, INR goal 2-3 -Possibly transfer to [facility] this weekend 11/27/18: -POD#11 -Left arm swelling continues to improve -Continues on Coumadin and heparin bridge -INR: 1.4 (1.1 yesterday) goal: 2 to 3 -[facility] soon,? Tomorrow 11/28/18: -POD#12 -BP in [...] -Transferred to [facility] 11/29/18: -POD#13 -Upper endoscopy showed duodenal [...] D/C due to GI bleed. -Transfer to [facility] 11/30/18 POD # 14 EGD yesterday - duodenal ulceration with clot, no active bleeding and no intervention performed INR trending down, off coumadin and heparin Speech signed off yesterday - speech and cognition back to baseline Watch INR and [facility] upon discharge 12/01/18 POD # 15 Bed available at [facility] today\.brTH stable, INR 1.4 EF 55-60% per echo 11/16/18 DVT Prophylaxis: SCDs Diagnosis CAD (coronary artery disease), [place] coronary artery - Admitting, Medical. Thrombocytopenia - [...]
--- OUTSIDE RECORDS SUMMARY | 2025-08-22 10:02 | XMS_ITS | Encounter Summary ---
Author Organization [employer] ([place], [place], [place], [place], [place]) Address [address] [place] [address] Care Team Providers Care Helmet Hat Brim Cutter Name Role Phone Unavailable Primary Care Provider Unavailabl e Encounter Details Date Type Department Care Team (Late st Contact Info) Description 11/16/2018 Transcribed Document [facility] [place] [address] [place] [address] ProviderErika MD [address] [place] [address] Social History Tobacco Use Types Packs/Day Years Used Date Smoking Tobacco: Never Assessed Sex and Gender Information Value Date Recorded Sex Assigned at Not on file Legal Sex Male 5:03 PM CDT Gender Identity Not on file Sexual Orientation Not on file documented as of this encounter Miscellaneous Notes * [employer] Conversion Note - Erika Jose MD - 11/16/2018 12:27 PM CDT Pain Assessment [...]
--- OUTSIDE RECORDS SUMMARY | 2025-08-22 10:02 | XMS_ITS | Encounter Summary ---
Author Organization [employer] ([place], [place], [place], [place], [place]) Address [address] [place] [address] Care Team Providers Care Fence Erector Supervisor Name Role Phone Unavailable Primary Care Provider Unavailabl e Encounter Details Date Type Department Care Team (Late st Contact Info) Description 11/16/2018 Transcribed Document [facility] [place] [address] [place] [address] ProviderErika MD [address] [place] [address] Social History Tobacco Use Types Packs/Day Years Used Date Smoking Tobacco: Never Assessed Sex and Gender Information Value Date Recorded Sex Assigned at Not on file Legal Sex Male 5:03 PM CDT Gender Identity Not on file Sexual Orientation Not on file documented as of this encounter Miscellaneous Notes * [employer]ner Conversion Note - Erika ProviderMD - 11/16/2018 7:30 AM CDT [facility] Main OR Preop Summary Primary Physician: JULIO CESAR CARVALHO MD-CAT Finalized Date/Time: 11/16/18 07:12:04 Pt. Name: DOTTIE VILLASENORO.B./Sex: 1940 Male Med Rec #: [id number] Physician: JULIO CESAR CARVALHO MD-CAT Financial #: [id number] Pt. Type: I Room/Bed: ASA/8 Admit/Disch: 11/16/18 06:45:00 - Institution: [facility] PreOp Case Times Entry 1 In Preop 11/16/18 05:35:00 Ready for Holding n/a Room Patient Ready for 11/16/18 06:30:00 Surgery Patient Out of Preop 11/16/18 07:05:00 Patient Out of n/a Holding Room Last Modified By: JILLIAN BEATTY RN 11/16/18 07:12:02 Finalized By: JILLIAN BEATTY RN Document Signatures Signed By: JILLIAN BEATTY RN 11/16/18 07:12 Electronically signed by Parveen [facility] Conversion Rip/Mould Operator Cerner at 12/08/2022 12:27 PM CDT documented in this encounter Plan of Treatment Not on file documented as of this encounter Visit Diagnoses Not on filedocumented in this encounter
--- OUTSIDE RECORDS SUMMARY | 2025-08-22 10:02 | XMS_ITS | Encounter Summary ---
Author Organization [employer] ([place], [place], [place], [place], [place]) Address [address] [place] [address] Care Team Providers Care Hub Cutter Name Role Phone Unavailable Primary Care Provider Unavailabl e Encounter Details Date Type Department Care Team (Late st Contact Info) Description 11/29/2018 Transcribed Document [facility] [place] [address] [place] [address] ProviderErika MD [address] [place], [...] Erika ProviderMD - 11/29/2018 2:51 PM CDT [facility] Endo PACU Summary Primary Physician: RIGOBERTO YU MD Finalized Date/Time: 11/29/18 15:36:07 Pt. Name: DOTTIE VILLASENOR /Sex: 1940 Male Med Rec #: [id number] Physician: JULIO CESAR CARVALHO MD-[facility] Financial #: [id number] Pt. Type: I Room/Bed: 330/1 Admit/Disch: 11/16/18 06:45:00 - Institution: [facility] Endo PACU Case Times Entry 1 In PACU I 11/29/18 15:10:00 Ready for PACU 11/29/18 15:35:00 Discharge Discharge from PACU 11/29/18 15:35:00 I Last Modified By: Destiney Mckenzie RN 11/29/18 15:35:51 [facility] Endo PACU Case Times Audit 11/29/18 15:35:51 Dehydrogenation Converter Helper: [email or web address] Modifier: [email or web address] <+> 1 Ready for PACU Discharge <+> 1 Discharge from PACU I Finalized By: Destiney Mckenzie RN Document Signatures Signed By: Destiney Mckenzie RN 11/29/18 15:36 Electronically signed by [facility] Conversion Lokie Engineer Cerner at 12/08/2022 12:16 PM CDT documented in this encounter Plan of Treatment Not on file documented as of this encounter Visit Diagnoses Not on filedocumented in this encounter
--- OUTSIDE RECORDS SUMMARY | 2025-08-22 10:02 | XMS_ITS | Encounter Summary ---
Author Organization [employer] ([place], [place], [place], [place], [place]) Address [address] [place] [address] Care Team Providers Care Professional Bass Fisher Name Role Phone Unavailable Primary Care Provider Unavailabl e Encounter Details Date Type Department Care Team (Late st Contact Info) Description 12/01/2018 Transcribed Document [facility] [place] [address] [place] [address] ProviderErika MD [address] [phone] Social History Tobacco Use Types Packs/Day Years [...]
--- OUTSIDE RECORDS SUMMARY | 2025-08-22 10:02 | XMS_ITS | Encounter Summary ---
Author Organization [employer] ([place], [place], [place], [place], [place]) Address [address] [place] [address] Care Team Providers Care Application Counselor Name Role Phone Unavailable Primary Care Provider Unavailabl e Encounter Details Date Type Department Care Team (Late st Contact Info) Description 11/20/2018 Transcribed Document [facility] [place] [address] [place] [address] ProviderErika MD [address] [place], [place] [phone] Social History Tobacco Use Types Packs/Day Years [...] Bedtime, Routine HEENT saliva substitutes - 1 [place], Buccal, Liquid, Q2H, PRN for Other (See [...] Radiology results Radiology Results (Last 48 hours) [id number] -- 11/16/2018 06:45 CR Chest 1 Vw [...] Shortness of breathCOMPARISON: 1 day priorFINDINGS: A [place]pp[place]-Jovanna catheter tip terminates in the SVC. The Hooppole-Ganzcatheter has been retracted. The cardiac silhouette is [...] is improving. HCT stable Electronically signed by Parveen [facility] Conversion Button Maker Cerner at 12/08/2022 12:13 PM CDT documented in this encounter Plan of Treatment Not on file documented as of this encounter Visit Diagnoses Not on filedocumented in this encounter
--- OUTSIDE RECORDS SUMMARY | 2025-08-22 10:02 | XMS_ITS | Encounter Summary ---
Author Organization [employer] ([place], [place], [place], [place], [place]) Address [address] [place] [address] Care Team Providers Care Technician Telecommunication Systems Name Role Phone Unavailable Primary Care Provider Unavailabl e Encounter Details Date Type Department Care Team (Late st Contact Info) Description 11/22/2018 Transcribed Document [facility] [place] [address] [place] [address] ProviderErika MD [address] [place] [address] Social History Tobacco Use Types Packs/Day Years Used Date Smoking Tobacco: Never Assessed Sex and Gender Information Value Date Recorded Sex Assigned at Not on file Legal Sex Male 5:03 PM CDT Gender Identity Not on file Sexual Orientation Not on file documented as of this encounter Miscellaneous Notes * [employer]ner Conversion Note - Erika ProviderMD - 11/22/2018 5:00 AM CDT Height [...] Source : Measured Height Entry Format : [place] Height, Feet : 6 ft Height, Inches : 1 Inch Clinical Height : 185.42 cm Body Surface Area (BSA), Routine : 2.09 m2 Body Mass Index (BMI), Routine : 24.52 kg/m2 Amanda Sigala, RN - 11/22/2018 6:36 EDT Electronically signed by Christina [facility] Conversion Emergency Planning And Response Manager Cerner at 12/08/2022 12:18 PM CDT documented in this encounter Plan of Treatment Not on file documented as of this encounter Visit Diagnoses Not on filedocumented in this encounter
--- OUTSIDE RECORDS SUMMARY | 2025-08-22 10:02 | XMS_ITS | Encounter Summary ---
Author Organization [employer] ([place], [place], [place], [place], [place]) Address [address] [place] [address] Care Team Providers Care Lease Administrator Name Role Phone Unavailable Primary Care Provider Unavailabl e Encounter Details Date Type Department Care Team (Late st Contact Info) Description 11/24/2018 Transcribed Document [facility] [place] Medicine [address] [place] [address] ProviderErika MD [address] [place] [address] Social History Tobacco Use Types [...] EDT Electronically signed by Christina Saini Conversion Sustainable Products Marketing Manager Cerner at 12/08/2022 12:32 PM CDT documented in this encounter Plan of Treatment Not on file documented as of this encounter Visit Diagnoses Not on filedocumented in this encounter
--- OUTSIDE RECORDS SUMMARY | 2025-08-22 10:02 | XMS_ITS | Encounter Summary ---
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 11/17/2018 00:00 Essential (primary) hypertension 11/17/2018 00:00 Hypothyroidism, unspecified 11/17/2018 00:00 Nonrheumatic aortic (valve) insufficiency 11/17/2018 00:00 Restless legs syndrome 11/17/2018 00:00 Thoracic aortic aneurysm, without rupture 11/17/2018 00:00 Thrombocytopenia, unspecified 11/16/2018 00:00 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 11/16/2018 00:00 Nonrheumatic aortic (valve) insufficiency 11/16/2018 00:00 Thoracic aortic aneurysm, without rupture Admission Date : 11/16/2018 06:45 Co-treated by, OT : physical therapy assistant (FLIGHT OPERATIONS SPECIALIST) Personal Devices : Personal Devices No Devices [...] Established w Patient : Yes DAKOTA VELAZQUEZ OTR/Ginny - 11/29/2018 13:08 EDT Child Care Counselor Goals, OT Self Feeding LTG Grid Goal #1 Activity : Self feeding Assist : Independent, modified Date to Meet : 12/07/2018 EDT Goal Status : Progressing, continue CAROLINE TRISTANJAYCOB Carft OTR/L - 11/29/2018 13:08 EDT Grooming LTG Grid Goal #1 Activity : Grooming Assist : Assist, minimal Date to Meet : 12/07/2018 EDT Goal Status : Initial goal DAKOTA VELAZQUEZ OTR/L - 11/29/2018 13:08 EDT Dressing, Upper Body LTG Grid Goal #1 Activity : Dressing, Upper Body Assist : Assist, minimal Date to Meet : 12/07/2018 EDT Goal Status : Initial goal DAKOTA VELAZQUEZ OTR/L - 11/29/2018 13:08 EDT Toilet Transfer [...] 12/07/2018 EDT Goal Status : Progressing, continue DAKOTA VELAZQUEZ OTR/L - 11/29/2018 13:08 EDT Other LTG [...] scale Pain Score Pre-Intervention : 0 DAKOTA VELAZQUZE OTR/L - 11/29/2018 13:08 EDT Image 1 [...]
--- OUTSIDE RECORDS SUMMARY | 2025-08-22 10:02 | XMS_ITS | Encounter Summary ---
Author Organization [employer] ([place], [place], [place], [place], [place]) Address [address] [place] [address] Care Team Providers Care Speech Language Therapist Name Role Phone Unavailable Primary Care Provider Unavailabl e Encounter Details Date Type Department Care Team (Late st Contact Info) Description 11/24/2018 Transcribed Document [facility] [place] [facility] [place] [address] ProviderErika MD [address] [place] [address] Social History Tobacco Use Types Packs/Day Years Used Date Smoking Tobacco: Never Assessed Sex and Gender Information Value Date Recorded Sex Assigned at Not on file Legal Sex Male 5:03 PM CDT Gender Identity Not on file Sexual Orientation Not on file documented as of this encounter Miscellaneous Notes * Cerner Conversion Note - Erika ProviderMD - 11/24/2018 1:21 PM CDT Care Management Assessment/Plan Entered On: 11/24/2018 13:22 EDT Performed On: 11/24/2018 13:21 EDT by ODALYS FAULKNER Rn-Hydraulic Pile Hammer OperatorHydraulic Assembler Note Care Management Note : 11/24/18 Andra from [facility] called to let me know they started a precert on this pt. CF Care Management Note Report : ODALYS FAULKNER Rn-Hydraulic Pile Hammer Operator - 11/22/18 13:56:32 11/22/18 Pt has had a cva. Spoke to his Connie and son Sumeet at the bedside. Pt is lfacid on the left side. Discussed the need for STR and they decided on [facility]. Sent pt info via [employer] to [facility]. CF Documentation Status Complete : Yes ODALYS FAULKNER Rn-Hydraulic Pile Hammer Operator - 11/24/2018 13:21 EDT Electronically signed by Parveen [facility] Conversion Jewel Bearing Broacher Cerner at 12/08/2022 12:31 PM CDT documented in this encounter Plan of Treatment Not on file documented as of this encounter Visit Diagnoses Not on filedocumented in this encounter
--- OUTSIDE RECORDS SUMMARY | 2025-08-22 10:02 | XMS_ITS | Encounter Summary ---
Author Organization [employer] ([place], [place], [place], [place], [place]) Address [address] [place] [address] Care Team Providers Care Turner Off Name Role Phone Unavailable Primary Care Provider Unavailabl e Encounter Details Date Type Department Care Team (Late st Contact Info) Description 11/29/2018 Transcribed Document [facility] [place] Family Medicine [address] [place] [address] ProviderErika MD [address] [place] [address] Social History Tobacco Use Types [...] Ladan Gerber/Sex: 1940 Male Med Rec #: [id number] Physician: JULIO CESAR CARVALHO MD-[facility] Financial #: [id number] Pt. Type: I Room/Bed: [facility]/ Admit/Disch: 11/16/18 06:45:00 - Institution: [facility] - Case Attendance Entry 1 Entry 2 Entry 3 Case Attendee RIGOBERTO YU MD Reynolds, Ashley N RN JONNATHAN LUBIN Role Performed Surgeon/Proceduralist, Supreme Court Justice, First Scrub, First First Time In 11/29/18 [...] Patino Crna CORNEA, MIHAELA, MD Role Performed QUALITY ASSURANCE SPECIALIST/Nurse Grocery Store Manager Anesthesiologist of Record Time In 11/29/18 14:47:00 11/29/18 14:47:00 Time Out 11/29/18 15:09:00 11/29/18 15:09:00 Procedure EGD w Control Bleeding EGD w Control Bleeding Other Attendee Superficial Wound Closed By: Last Modified By: Gem Parekh RN Reynolds, Ashley N, RN 11/29/18 15:06:55 11/29/18 15:06:55 [facility] - Case Attendance Audit 11/29/18 15:06:55 Traffic Director: [email or web address] Modifier: [email or web address] 1 <+> Time Out 1 <*> Procedure EGD w Control Bleeding 2 <+> Time Out 2 <*> Procedure EGD w Control Bleeding 3 <+> Time Out 3 <*> Procedure EGD w Control Bleeding 4 <+> Time Out 4 <*> Procedure EGD w Control Bleeding 5 <+> Time Out 5 <*> Procedure EGD w Control Bleeding 11/29/18 14:59:16 Traffic Director: [email or web address] Modifier: [email or web address] <+> 1 Procedure <+> 2 Procedure <+> 3 Procedure <+> 4 Procedure <+> 5 Procedure 11/29/18 14:59:14 Traffic Director: [email or web address] Modifier: [email or web address] 1 <-> Procedure Esophagogastroduodenoscopy 2 <-> Procedure Esophagogastroduodenoscopy 3 <-> Procedure Esophagogastroduodenoscopy 4 <-> Procedure Esophagogastroduodenoscopy 5 <-> Procedure Esophagogastroduodenoscopy 11/29/18 14:49:19 Traffic Director: [email or web address] Modifier: [email or web address] 1 <*> Procedure Esophagogastroduodenoscopy 2 <+> Time In 2 <*> Procedure Esophagogastroduodenoscopy 3 <+> Time In 3 <*> Procedure Esophagogastroduodenoscopy 4 <+> Time In 4 <*> Procedure Esophagogastroduodenoscopy 5 <+> Time In 5 <*> Procedure Esophagogastroduodenoscopy 11/29/18 14:48:29 Traffic Director: [email or web address] Modifier: [email or web address] 1 <+> Time In [...] Endo - Case times Audit 11/29/18 15:06:53 Traffic Director: [email or web address] Modifier: [email or web address] <+> 1 Out Room Time <+> 1 Stop Time <+> 1 Stop Time 11/29/18 14:51:51 Traffic Director: [email or web address] Modifier: [email or web address] <+> 1 Start Time [...] 11/29/18 14:48:48 [facility] - General Case Auto Garage Mechanic 1 Case Information OR Endo 01 [facility] [...] CLIP II RESOLUTION CLIP II RESOLUTION Identification [id number] Description Implant Quantity 1 1 Implant Site Implant Identification Model Number Implant Identification Serial Number Implant [id number] Identification Lot Number Implant Ceiba Sci:Interv Ceiba Sci:Interv Identification Cardiology Cardiology Camera Systems Engineer Name: Implant [id number] Identification Catalog Number Implant Size Implant Has an Yes Yes Expiration Date Implant Expiration 09/05/21 07/10/21 Date Wasted Radioactive Material Time Implanted Tissue Implant Continue for Tissue Implant Documentation Tissue Identification Number Graft Prep Per Camera Systems Engineer Instructions: Tissue Preparation Method: Reconstitution Solution: Reconstitution Solution Lot Number Reconstitution Solution Expiration Date: Thawing Solution Thawing Solution Lot Number Thawing Solution Expiration Date Preparation Materials, Other Preparation Materials, Other Lot Number Preparation Materials, Other Expiration Date Tissue Prepared/Processed By Camera Systems Engineer Paperwork Completed Implant Type Comment clip failed Last Modified By: Gem Parekh RN Reynolds, Ashley N, RN 11/29/18 15:00:27 11/29/18 15:06:45 [facility] - Implant Log Audit 11/29/18 15:06:45 Traffic Director: GARY Modifier: [email or web address] 2 <*> Implant Identification Description CLIP II RESOLUTION [id number] <+> Implant Type Comment 11/29/18 15:04:27 Traffic Director: [email or web address] Modifier: [email or web address] <+> 2 Implant Identification Description <+> 2 Implant Identification Lot Number <+> 2 Implant Identification Camera Systems Engineer Name: <+> 2 Implant Expiration Date <+> [...] Modified By: Gem Parekh RN 11/29/18 14:49:01 [facility] - [...] Endo - Intraoperative Equipment Audit 11/29/18 14:56:48 Traffic Director: GARY Modifier: [email or web address] <+> 2 Photo <+> 2 [...] Endo - Patient Positioning Audit 11/29/18 14:59:16 Traffic Director: [email or web address] Modifier: [email or web address] <+> 1 Procedure 11/29/18 14:59:14 Traffic Director: [email or web address] Modifier: [email or web address] 1 <-> Procedure Esophagogastroduodenoscopy [facility] - Sign In Entry 1 Patient, Site, Yes Procedure Identified Surgical Consent Yes Confirmed Surgical Site N/A Marked by person performing procedure Airway Hypothermia Risk No Warming Measures No Taken Last Modified By: Gem Paerkh RN 11/29/18 14:49:18 [facility] - Sign [...] Endo - Surgical Procedures Audit 11/29/18 15:07:04 Traffic Director: [email or web address] Modifier: [email or web address] <+> 1 Stop 11/29/18 14:59:15 Traffic Director: [email or web address] Modifier: [email or web address] 1 <*> Procedure Esophagogastroduodenoscopy 1 <+> Start 11/29/18 14:49:23 Traffic Director: [email or web address] Modifier: [email or web address] 1 <*> Procedure Esophagogastroduodenoscopy [...] Endo - Time Out Audit 11/29/18 14:59:17 Traffic Director: [email or web address] Modifier: [email or web address] <+> 1 Procedure to be Performed 11/29/18 14:59:15 Traffic Director: [email or web address] Modifier: [email or web address] 1 <-> Procedure to be Performed Esophagogastroduodenoscopy Case Comments <None> Finalized By: Gem Parekh RN Document Signatures Signed By: Gem Parekh RN 11/29/18 15:07 Electronically signed by Parveen [facility] Conversion Management Recruiter Cerner at 12/08/2022 12:33 PM CDT documented in this encounter Plan of Treatment Not on file documented as of this encounter Visit Diagnoses Not on filedocumented in this encounter
--- OUTSIDE RECORDS SUMMARY | 2025-08-22 10:02 | XMS_ITS | Encounter Summary ---
Author Organization [employer] ([place], [place], [place], [place], [place]) Address [address] [place] [address] Care Team Providers Care Lead Sql Developer Name Role Phone Unavailable Primary Care Provider Unavailabl e Encounter Details Date Type Department Care Team (Late st Contact Info) Description 12/01/2018 Transcribed Document [facility] [place] [address] [place] [address] ProviderErika MD [address] [place] [address] Social History Tobacco Use Types [...] Jose MD - 12/01/2018 3:00 PM CDT [facility] [place], [place] [id number] DOTTIE VILLASENOR :1940 Visit Time:11/16/2018 Your Visit Summary Your Care Team Admitting Physician - JULIO CESAR CARVALHO MD-CAT Attending Physician - JULIO CESAR CARVALHO MD-YADIRA Primary Care Physician - DEMETRICE ARMIJO NP-FAM Referring Physician - DEMETRICE ARMIJO NP-FAM Your Diagnosis Acute blood loss anemia Aortic insufficiency, Aortic insufficiency CAD (coronary artery disease), pechanga coronary artery, Coronary artery disease GI bleed [...] do next Instructions From Your Care Team [facility]-Stroke Unit RN report #[phone] DC Summary #[phone] You may shower. Make sure your back [...] IF you have a fever greater than [address], call the surgeon. DO NOT drive for [...] Where: [address] [place] [address]- Business (1) Follow Up with JULIO CESAR CARVALHO When 12/15/2018 12:15 PM EDT Where: [address] [place] [address] Business (1) Follow Up with DEMETRICE ARMIJO When Within 1 week Comments When you are discharged from [facility] please call to make a 1 week hospital follow-up appointment. Where: [address] [place] [address]- Follow Up with JOHN BOWEN When Within 6 weeks Comments Patient should call for a follow up appointment with [facility] Neurology. Where: [address] [place] [address]- Business (1) Medications What How [...] contain harmful chemicals. FOR MORE INFORMATION ??? [place] [employer]: www.lung.org ??? [place] [employer]: www.cancer.org This information is not intended to replace advice given to you by your health care provider. Make sure you discuss any questions you have with your health care provider. Document Released: 09/17/2005 Document Revised: 12/01/2016 Document Reviewed: 01/30/2014 [employer] Interactive Patient Education ?? 2017 [employer]. How to Take Your Blood Pressure HOW [...] 02/14/2004 Document Revised: 02/27/2017 Document Reviewed: 01/13/2017 [employer] Interactive Patient Education ?? 2017 [employer]. Coronary Artery Bypass Grafting, Care After [...] 02/27/2006 Document Revised: 08/31/2015 Document Reviewed: 01/17/2014 [employer] Interactive Patient Education ?? 2017 [employer] Bleeding Precautions When on Anticoagulant Therapy [...] can be dangerous for you. ??? Many bgqj-lgt-immtliq medicines for pain, colds, or stomach problems [...] provider. Document Released: 07/21/2016 Document Reviewed: 07/21/2016 [employer] Interactive Patient Education ?? 2017 [employer] Atrial Fibrillation Introduction Atrial fibrillation is [...] Follow these instructions at home: ??? Take orku-oth-jmlvzzm and prescription medicines only as told by [...] 09/17/2005 Document Revised: 01/15/2017 Document Reviewed: 02/10/2014 [employer] Interactive Patient Education ?? 2017 [employer]. [facility]reji ramos) [facility] What is the most important information I [...] may report side effects to FDA at 7-352-JWD-9661. What other drugs will affect misoprostol? Other drugs may interact with misoprostol, including prescription and grux-epq-zboonht medicines, vitamins, and herbal products. Tell each [...] to ensure that the information provided by [employer]. ('Multum') is accurate, up-to-date, and complete, but no guarantee is made to that effect. Drug information contained herein may be time sensitive. Novavax ABum information has been compiled for use by healthcare practitioners and consumers in the [place] and therefore [employer] does not warrant that uses outside of the [place] are appropriate, unless specifically indicated otherwise. [employer] drug information does not endorse drugs, diagnose patients or recommend therapy. [employer] drug information is an informational resource designed [...] with your doctor, nurse or pharmacist. Copyright 9062-7571 [employer]. Version: 8.01. Revision Date: 03/02/2014.sucralfate (oral) (angelica [...] may report side effects to FDA at 5-655-XKM-4321. What other drugs will affect sucralfate? Sucralfate can make it harder for your body to absorb other medications you take by mouth. Avoid taking any other medications within 2 hours before or after you take sucralfate. Other drugs may interact with sucralfate, including prescription and ddqe-fwk-iirfoah medicines, vitamins, and herbal products. Tell each [...] to ensure that the information provided by [employer]. ('Multum') is accurate, up-to-date, and complete, but no guarantee is made to that effect. Drug information contained herein may be time sensitive. [employer] information has been compiled for use by healthcare practitioners and consumers in the [place] and therefore [employer] does not warrant that uses outside of the [place] are appropriate, unless specifically indicated otherwise. [employer] drug information does not endorse drugs, diagnose patients or recommend therapy. [employer] drug information is an informational resource designed [...] effective or appropriate for any given patient. [employer] does not assume any responsibility for any aspect of healthcare administered with the aid of information [employer] provides. The information contained herein is not intended to cover all possible uses, directions, precautions, warnings, drug interactions, allergic reactions, or adverse effects. If you have questions about the drugs you are taking, check with your doctor, nurse or pharmacist. Copyright 6644-9217 [employer]. Version: 8.01. Revision Date: 01/03/2013.sucralfate (oral) (angelica [...] may report side effects to FDA at 2-523-ZXR-7489. What other drugs will affect sucralfate? Sucralfate can make it harder for your body to absorb other medications you take by mouth. Avoid taking any other medications within 2 hours before or after you take sucralfate. Other drugs may interact with sucralfate, including prescription and dqji-opk-wpiyaeq medicines, vitamins, and herbal products. Tell each [...] to ensure that the information provided by [employer]. ('Multum') is accurate, up-to-date, and complete, but no guarantee is made to that effect. Drug information contained herein may be time sensitive. [employer] information has been compiled for use by healthcare practitioners and consumers in the [place] and therefore [employer] does not warrant that uses outside of the [place] are appropriate, unless specifically indicated otherwise. [employer] drug information does not endorse drugs, diagnose patients or recommend therapy. [employer] drug information is an informational resource designed [...] with your doctor, nurse or pharmacist. Copyright 4999-7888 [employer]. Version: 8.01. Revision Date: 01/03/2013. Emergency Awareness [...] Assistance with quitting is available by contacting 2-936-RCKV-NOW. This is a free resource providing counseling, [...] worse. Electronically signed by Parveen, Christina Conversion Tractor Sweeper Operator Cerner at 12/08/2022 12:20 PM CDT documented in this encounter Plan of Treatment Not on file documented as of this encounter Visit Diagnoses Not on filedocumented in this encounter
--- OUTSIDE RECORDS SUMMARY | 2025-08-22 10:02 | XMS_ITS | Encounter Summary ---
Author Organization [employer] ([place], [place], [place], [place], [place]) Address [address] [place] [address] Care Team Providers Care Truck Washer Name Role Phone Unavailable Primary Care Provider Unavailabl e Encounter Details Date Type Department Care Team (Late st Contact Info) Description 11/16/2018 Transcribed Document [facility] [place] Family Medicine [address] [place] [address] ProviderErika MD [address], [place] [...] anterior descending). SURGEON: Porfirio Gaxiola IV, MD MAILING MACHINE ASSISTANT: Saud Oliver (AMANDA) ANESTHESIA: General orotracheal. CLINICAL [...] 11/16/2018 15:09:34 CC1: Porfirio Gaxiola IV, M.D. documented in this encounter Plan of Treatment Not on file documented as of this encounter Visit Diagnoses Not on filedocumented in this encounter
--- OUTSIDE RECORDS SUMMARY | 2025-08-22 10:02 | XMS_ITS | Encounter Summary ---
Author Organization [employer] ([place], [place], [place], [place], [place]) Address [address] [place] [address] Care Team Providers Care Data Analytics Chief Scientist Name Role Phone Unavailable Primary Care Provider Unavailabl e Encounter Details Date Type Department Care Team (Late st Contact Info) Description 11/22/2018 Transcribed Document [facility] [place] [address] [place] [address] ProviderErika MD [address] [place] [address] Social History Tobacco Use Types Packs/Day Years Used Date Smoking Tobacco: Never Assessed Sex and Gender Information Value Date Recorded Sex Assigned at Not on file Legal Sex Male 5:03 PM CDT Gender Identity Not on file Sexual Orientation Not on file documented as of this encounter Miscellaneous Notes * Cerner Conversion Note - Erika Jose MD - 11/22/2018 11:16 AM CDT Discharge Instructions Entered On: 11/22/2018 11:16 EDT Performed On: 11/22/2018 11:16 EDT by JAY JAY CRESPO MD-NEU DC Instructions D Community Services : Outpt [facility] [phone] They will call pt w/ appt time. SUZANNA HAINES, Superintendent Operating - 11/30/2018 15:30 EDT Driving After Discharge : Do not drive, Other: No driving or operating heavy machinery until released by a physician. JAY JAY CRESPO MD-NEU - 11/22/2018 11:16 EDT documented in this encounter Plan of Treatment Not on file documented as of this encounter Visit Diagnoses Not on filedocumented in this encounter
--- OUTSIDE RECORDS SUMMARY | 2025-08-22 10:02 | XMS_ITS | Encounter Summary ---
Author Organization [employer] ([place], [place], [place], [place], [place]) Address [address] [place] [address] Care Team Providers Care Appliance Counselor Name Role Phone Unavailable Primary Care Provider Unavailabl e Encounter Details Date Type Department Care Team (Late st Contact Info) Description 11/16/2018 Transcribed Document [facility] [place] Family Medicine [address] [place] [address] ProviderErika MD [address] [place] [id number] Social History Tobacco Use Types Packs/Day Years [...] Medical. Performed by: JULIO CESAR CARVALHO MD-CAT. Pawn Broker: ERASMO LÓPEZ PA. Notes: Procedure: Resection and [...]
--- OUTSIDE RECORDS SUMMARY | 2025-08-22 10:02 | XMS_ITS | Encounter Summary ---
Author Organization [employer] ([place], [place], [place], [place], [place]) Address [address] [place] [address] Care Team Providers Care Refrigerator Glazier Name Role Phone Unavailable Primary Care Provider Unavailabl e Encounter Details Date Type Department Care Team (Late st Contact Info) Description 12/01/2018 Transcribed Document [facility] [place] [address] [place] [address] ProviderErika MD [address] [place] [address] Social History Tobacco Use Types Packs/Day Years Used Date Smoking Tobacco: Never Assessed Sex and Gender Information Value Date Recorded Sex Assigned at Not on file Legal Sex Male 5:03 PM CDT Gender Identity Not on file Sexual Orientation Not on file documented as of this encounter Miscellaneous Notes * Cerner Conversion Note - Historical ProviderMD - 12/01/2018 2:00 AM CDT Cable Rigger Details Entered On: 12/01/2018 0:23 EDT Performed [...] Line : No Dixie Fox, TONJA - 12/01/2018 0:22 EDT documented in this encounter Plan of Treatment Not on file documented as of this encounter Visit Diagnoses Not on filedocumented in this encounter
--- OUTSIDE RECORDS SUMMARY | 2025-08-22 10:02 | XMS_ITS | Encounter Summary ---
Author Organization [employer] ([place], [place], [place], [place], [place]) Address [address] [place] [address] Care Team Providers Care Public Relations Consultant Name Role Phone Unavailable Primary Care Provider Unavailabl e Encounter Details Date Type Department Care Team (Late st Contact Info) Description 11/20/2018 Transcribed Document [facility] [place] Family Medicine [address] [place] [address] ProviderErika MD [address] [place] [address] Social History Tobacco Use Types [...] TORREY ZUNIGA SLP General Information Visit Type, WIENER PACKER : Initial evaluation Patient Orders : WIENER PACKER Fxnl Limitation Documentation x 1 -111 Start: 11/20/18 8:39:00 EDT - SYSTEM, SYSTEM WIENER PACKER Bedside Swallow Evaluation - Start: 11/20/18 8:38:00 [...] Thoracic aortic aneurysm, without rupture Therapy Diagnosis, WIENER PACKER : overt signs and symptoms of aspiration at bedside Previous Speech/Language Evaluations : N/A Previous Swallow Precautions : N/A Previous Cognitive Evaluations : N/A Diet/Intake Prior to Current Admission : Regular/thin Diet/Intake During Current Admission : NPO Intubation Comment, WIENER PACKER : 11/16-11/17 Vital Signs RTF : Vitals [...] Comment : Nasal cannula 3 L/min TORREY ZUNIGA, WIENER PACKER - 11/20/2018 9:21 EDT General Status Patient Received Status, WIENER PACKER : Long sitting in bed Patient Left Status, WIENER PACKER : Long sitting in bed TORREY ZUNIGA WIENER PACKER - 11/20/2018 9:21 EDT Pain Assessment Pain Scaled Used : FACES Duration : 0 TORREY ZUNIGA SLP - 11/20/2018 9:21 EDT Image 1 - Images currently included in the form version of this document have not been included in the text rendition version of the form. Oral Mechanism Dysarthria : No Brief Phonation Quality : Hoarse, Other: Weak Resonance Types : Appropriate WIENER PACKER Cough : Weak Facial Appearance: : Symmetrical [...] closing, Impaired strength with resistance, opening TORREY ZUNIGA, WIENER PACKER - 11/20/2018 9:21 EDT Bedside Swallow Swallow [...] cup, Thin by straw, Pureed TORREY ZUNIGA WIENER PACKER - 11/20/2018 9:21 EDT Swallow Impressions Bedside [...] noted with thin via straw and puree. WIENER PACKER unable to determine safe diet at bedside, recommend FEES to further assess swallow function. Continue NPO with alternate means of nutrition and meds until FEES. WIENER PACKER discussed results and recs with patient and family. TORREY ZUNIGA, WIENER PACKER - 11/20/2018 9:26 EDT Impressions, BS Swallow : Signs/Symptoms of pharyngeal dysphagia Swallowing Outcome Measures : Functional Oral Intake Scale (FOIS) Functional Oral Intake Scale (FOIS) : Level I TORREY ZUNIGA WIENER PACKER - 11/20/2018 9:21 EDT Swallow Recommendations Recommended Diet Type, SwRec : Non-oral feeding, NPO Swallow Position, SwRec : Upright 90 degrees Recommended Med Present, SwRec : Non-oral Recommended Exam, Sw Rec : FEES Repeat Swallow Exam Timeframe : 1-3 days TORREY ZUNIGA SLP - 11/20/2018 9:26 EDT Therapy Indication Assessment WIENER PACKER Indicated : Yes WIENER PACKER Problem List : Impaired, Swallowing TORREY ZUNIGA SLP - 11/20/2018 9:26 EDT Swallow Plan/Goals Treatment Frequency, WIENER PACKER : 4 times per wk Treatment Duration, WIENER PACKER : Two weeks TORREY ZUNIGA SLP - 11/20/2018 9:26 EDT Swallow LTG Grid WIENER PACKER Fisher Purse Seine Goal #1 Swallow LTG : Establish safe [...] TORREY ZUNIGA SLP - 11/20/2018 9:26 EDT WIENER PACKER Education Assessment Grid 1 Diet Recommendation : Verbalizes understanding Dysphagia : Verbalizes understanding Non-Oral Nutrition : Verbalizes understanding NPO : Verbalizes understanding TORREY ZUNIGA SLP - 11/20/2018 9:26 EDT WIENER PACKER Education Assessment Grid 2 Treatment Plan : Verbalizes understanding TORREY ZUNIGA SLP - 11/20/2018 9:[address] [facility] WIENER PACKER Charges Evaluation Swallowing Function : 1 TORREY ZUNIGA SLP - 11/20/2018 9:26 EDT Functional Limitation Reporting, WIENER PACKER Functional Limitation Visit Type, WIENER PACKER : Initial evaluation Severity Determination Method, WIENER PACKER : Clinical Judgment, Swallowing Swallow G8996 - Current Mod, WIENER PACKER : 80 - 99% impaired, limited or restricted (CM) Swallow G8997 - Proj Goal Mod, WIENER PACKER : 1 - 19% impaired, limited or restricted (CI) TORREY ZUNIGA SLP - 11/20/2018 9:26 EDT Electronically signed by Parveen [facility] Conversion Technology Applications Consultant Cerner at 12/08/2022 12:30 PM CDT documented in this encounter Plan of Treatment Not on file documented as of this encounter Visit Diagnoses Not on filedocumented in this encounter
--- OUTSIDE RECORDS SUMMARY | 2025-08-22 10:02 | XMS_ITS | Encounter Summary ---
Author Organization [employer] ([place], [place], [place], [place], [place]) Address [address] [place] [address] Care Team Providers Care Radiological Health Specialist Name Role Phone Unavailable Primary Care Provider Unavailabl e Encounter Details Date Type Department Care Team (Late st Contact Info) Description 11/16/2018 Transcribed Document [facility] [place] [address] [place] [address] ProviderErika MD [address] [place] [address] Social History Tobacco Use Types [...] On: 11/16/2018 12:27 EDT by [facility]att [facility] Phone Call for Consults Consult Phone Call/Page Attempt : First call Lorin Pratt [facility] - 11/16/2018 13:34 EDT documented in this encounter Plan of Treatment Not on file documented as of this encounter Visit Diagnoses Not on filedocumented in this encounter
--- OUTSIDE RECORDS SUMMARY | 2025-08-22 10:02 | XMS_ITS | Encounter Summary ---
Author Organization [employer] ([place], [place], [place], [place], [place]) Address [address] [place] [address] Care Team Providers Care Cake Maker Name Role Phone Unavailable Primary Care Provider Unavailabl e Encounter Details Date Type Department Care Team (Late st Contact Info) Description 11/16/2018 Transcribed Document [facility] [place] Family Medicine [address] [place] [address] ProviderErika MD [address] [place] [address] Social History Tobacco Use Types [...] form. Electronically signed by Christina Saini Conversion Credit Collections Specialist Cerner at 12/08/2022 12:14 PM CDT documented in this encounter Plan of Treatment Not on file documented as of this encounter Visit Diagnoses Not on filedocumented in this encounter
--- OUTSIDE RECORDS SUMMARY | 2025-08-22 10:02 | XMS_ITS | Encounter Summary ---
Author Organization [employer] ([place], [place], [place], [place], [place]) Address [address] [place] [address] Care Team Providers Care Operations Welder Name Role Phone Unavailable Primary Care Provider Unavailabl e Encounter Details Date Type Department Care Team (Late st Contact Info) Description 11/24/2018 Transcribed Document [facility] [place] [address] [place] [address] ProviderErika MD [address] [place] [address] Social History Tobacco Use Types Packs/Day Years Used Date Smoking Tobacco: Never Assessed Sex and Gender Information Value Date Recorded Sex Assigned at Not on file Legal Sex Male 5:03 PM CDT Gender Identity Not on file Sexual Orientation Not on file documented as of this encounter Miscellaneous Notes * Cerner Conversion Note - Erika ProviderMD - 11/24/2018 4:00 AM CDT Height and Weight, Routine Entered On: 11/24/2018 3:37 EDT Performed On: 11/24/2018 4:00 EDT by SHELDON MUELLER RN Height and Weight, Routine Routine Weight Source : Bed scale Routine Weight Entry Format : [place] Routine Weight, Pounds : 180 lb Routine Weight, Ounces : 8 oz Routine Weight Calculation : 82.05 kg Height Source : Measured Height Entry Format : [place] Height, Feet : 6 ft Height, Inches [...]
--- OUTSIDE RECORDS SUMMARY | 2025-08-22 10:02 | XMS_ITS | Encounter Summary ---
Author Organization [employer] ([place], [place], [place], [place], [place]) Address [address] [place] [address] Care Team Providers Care Supervisor Display Fabrication Name Role Phone Unavailable Primary Care Provider Unavailabl e Encounter Details Date Type Department Care Team (Late st Contact Info) Description 11/28/2018 Transcribed Document [facility] [place] Family Medicine [address] [place] [address] ProviderErika MD [address] [place], [place] [id number] Social History Tobacco Use Types Packs/Day Years Used Date Smoking Tobacco: Never Assessed Sex and Gender Information Value Date Recorded Sex Assigned at Not on file Legal Sex Male 5:03 PM CDT Gender Identity Not on file Sexual Orientation Not on file documented as of this encounter Miscellaneous Notes * Cerner Conversion Note - Historical ProviderMD - 11/28/2018 2:00 AM CDT Senior Java Web Developer Details Entered On: 11/28/2018 2:45 EDT Performed [...] EDT Electronically signed by Christina Saini Conversion Fermenting Cellars Receiver Cerner at 12/08/2022 12:20 PM CDT documented in this encounter Plan of Treatment Not on file documented as of this encounter Visit Diagnoses Not on filedocumented in this encounter
--- OUTSIDE RECORDS SUMMARY | 2025-08-22 10:02 | XMS_ITS | Encounter Summary ---
Author Organization [employer] ([place], [place], [place], [place], [place]) Address [address] [place] [address] Care Team Providers Care Sales Performance Analyst Name Role Phone Unavailable Primary Care Provider Unavailabl e Encounter Details Date Type Department Care Team (Late st Contact Info) Description 11/28/2018 Transcribed Document [facility] [place] [address] [place] [address] ProviderErika MD [address] [place] [address] Social History Tobacco Use Types Packs/Day Years Used Date Smoking Tobacco: Never Assessed Sex and Gender Information Value Date Recorded Sex Assigned at Not on file Legal Sex Male 5:03 PM CDT Gender Identity Not on file Sexual Orientation Not on file documented as of this encounter Miscellaneous Notes * Cerner Conversion Note - Erika ProviderMD - 11/28/2018 5:00 PM CDT Chart [...]
--- OUTSIDE RECORDS SUMMARY | 2025-08-22 10:02 | XMS_ITS | Encounter Summary ---
Author Organization [employer] ([place], [place], [place], [place], [place]) Address [address] [place] [address] Care Team Providers Care Galvanometer Assembler Name Role Phone Unavailable Primary Care Provider Unavailabl e Encounter Details Date Type Department Care Team (Late st Contact Info) Description 11/22/2018 Transcribed Document [facility] [place] [address] [place] [address] ProviderrEika MD [address] [place], [place] [id number] Social History Tobacco Use Types Packs/Day Years [...] 1940 Associated Diagnoses: CAD (coronary artery disease), [place] coronary artery; Thrombocytopenia; Coronary artery disease; HTN [...] S1, S2, No edema. Integumentary: Warm, Dry, [place], incision is C/D/I. Neurologic: Alert, left sided [...] Prophylaxis: SCDs Diagnosis CAD (coronary artery disease), [place] coronary artery - Admitting, Medical. Thrombocytopenia - Working, Medical. Coronary artery disease - Discharge, Medical. HTN (hypertension) - Pre-Op Diagnosis, Medical. Hypothyroidism - Pre-Op Diagnosis, Medical. Aortic insufficiency - Admitting, Medical. Aortic insufficiency - Discharge, Medical. RLS (restless legs syndrome) - Pre-Op Diagnosis, Medical. Thoracic ascending aortic aneurysm - Admitting, Medical. Thoracic ascending aortic aneurysm - Discharge, Medical. Electronically signed by Parveen, [facility] Conversion Airplane Pilot Commercial Cerner at 12/08/2022 12:25 PM CDT documented in this encounter Plan of Treatment Not on file documented as of this encounter Visit Diagnoses Not on filedocumented in this encounter
--- OUTSIDE RECORDS SUMMARY | 2025-08-22 10:02 | XMS_ITS | Encounter Summary ---
Author Organization [employer] ([place], [place], [place], [place], [place]) Address [address] [place] [address] Care Team Providers Care Skiver Box Toe Name Role Phone Unavailable Primary Care Provider Unavailabl e Encounter Details Date Type Department Care Team (Late st Contact Info) Description 11/16/2018 Transcribed Document [facility] [place] [address] [place] [address] ProviderErika MD [address] [place] [address] Social History Tobacco Use Types [...] 13:37 EDT General Info Contact Password : FROY GLORIA RN - 11/16/2018 13:43 EDT Arrived From : Home Mode of Arrival on Unit : Ambulatory Legal Guardian : Spouse Support Person/Patient Legislative Director : Yes Support Person/Pt Rep Name : Connie- Sumeet - son Support Person/Pt Rep Contact Information : [phone] home [phone] - xqvt Want Family/Rep/Phys Notified of Admit : No Emergency Contact #1 : Connie FROY NEIL RN - 11/16/2018 13:37 EDT Emergency Contact #1 (H) FROY NEIL RN - 11/16/2018 13:43 EDT Emergency Contact #1 Relationship : RASHAAD FROY Tao RN - 11/16/2018 13:37 EDT Emergency Contact #2 : Sheridan King Emergency Contact #2 (C) Emergency Contact #2 Relationship : daughter RASHAAD FROY Tao RN - 11/16/2018 13:43 EDT Information Obtained From : Patient, Medical Record Primary Language : Niuean Preferred Communication Mode : Verbal Communication Barrier [...] Scale Risk Level : 25-45 Medium Risk Accord Fall Interventions : Adequate lighting, Assistive devices [...] Source : Measured Height Entry Format : [place] Height, Feet : 6 ft(Converted to: 183 cm, 72 Inch) Height, Inches : 1 Inch(Converted to: 0 ft 1 Inch, 2.54 cm) Clinical Height : 185.42 cm Weight Source : Standing scale Weight Entry Format : [place] Clinical Dosing Weight : 79.23 kg Weight, Pounds : 174 lb Weight, Ounces : 5 oz Body Surface Area (BSA) : 2.03 m2 Body Mass Index : 23 kg/m2 [place] Body Weight : 79 kg FROY NEIL [...]
--- OUTSIDE RECORDS SUMMARY | 2025-08-22 10:02 | XMS_ITS | Encounter Summary ---
Author Organization [employer] ([place], [place], [place], [place], [place]) Address [address] [place] [address] Care Team Providers Care Pediatric Sports Medicine Specialist Name Role Phone Unavailable Primary Care Provider Unavailabl e Encounter Details Date Type Department Care Team (Late st Contact Info) Description 11/24/2018 Transcribed Document [facility] [place] [address] [place] [address] ProviderErika MD [address] [place], [place] [phone] Social History Tobacco Use Types Packs/Day Years Used Date Smoking Tobacco: Never Assessed Sex and Gender Information Value Date Recorded Sex Assigned at Not on file Legal Sex Male 5:03 PM CDT Gender Identity Not on file Sexual Orientation Not on file documented as of this encounter Miscellaneous Notes * Cerner Conversion Note - Historical ProviderMD - 11/24/2018 2:00 AM CDT Liaison Officer Details Entered On: 11/24/2018 3:36 EDT Performed [...]
--- OUTSIDE RECORDS SUMMARY | 2025-08-22 10:02 | XMS_ITS | Encounter Summary ---
Author Organization [employer] ([place], [place], [place], [place], [place]) Address [address] [place] [address] Care Team Providers Care Endodontist Name Role Phone Unavailable Primary Care Provider Unavailabl e Encounter Details Date Type Department Care Team (Late st Contact Info) Description 11/29/2018 Transcribed Document [facility] [place] [facility] [place] [address] [place] [address] ProviderErika MD [address] [place], [place] [phone] Social History Tobacco Use Types Packs/Day Years Used Date Smoking Tobacco: Never Assessed Sex and Gender Information Value Date Recorded Sex Assigned at Not on file Legal Sex Male 5:03 PM CDT Gender Identity Not on file Sexual Orientation Not on file documented as of this encounter Miscellaneous Notes * Cerner Conversion Note - Erika ProviderMD - 11/29/2018 5:00 AM CDT Chart [...]
--- OUTSIDE RECORDS SUMMARY | 2025-08-22 10:02 | XMS_ITS | Encounter Summary ---
Author Organization [employer] ([place], [place], [place], [place], [place]) Address [address] [place] [address] Care Team Providers Care Cheese Cutter Name Role Phone Unavailable Primary Care Provider Unavailabl e Encounter Details Date Type Department Care Team (Late st Contact Info) Description 11/24/2018 Transcribed Document [facility] [place] [address] [place] [address] ProviderErika MD [address] [place], [place] [phone] Social History Tobacco Use Types Packs/Day Years Used Date Smoking Tobacco: Never Assessed Sex and Gender Information Value Date Recorded Sex Assigned at Not on file Legal Sex Male 5:03 PM CDT Gender Identity Not on file Sexual Orientation Not on file documented as of this encounter Miscellaneous Notes * Cerner Conversion Note - Erika Jose MD - 11/24/2018 10:15 AM CDT Patient: DOTTIE VILLASENOR Age: 78 years Sex: Male : 1940 Associated Diagnoses: CAD (coronary artery disease), [place] coronary artery; Thrombocytopenia; Coronary artery disease; HTN [...] S1, S2, No edema. Integumentary: Warm, Dry, [place], incision is C/D/I. Neurologic: Alert, left [...] restricted diffusion consistent with acute ischemic infarct. -Sharon. is working with pt -Pt will need inpatient rehab at the time of discharge- CM has sent information to [facility] -Transfer to [facility] 11/24/18 -POD#8 -Awaiting transfer to [facility] -Awaiting response from [facility] EF 55-60% per echo 11/16/18 DVT Prophylaxis: SCDs Diagnosis CAD (coronary artery disease), [place] coronary artery - Admitting, Medical. Thrombocytopenia - [...] accident) - Discharge, Medical. Electronically signed by Parveen [facility] Conversion Writer Producer Cerner at 12/08/2022 12:10 PM CDT documented in this encounter Plan of Treatment Not on file documented as of this encounter Visit Diagnoses Not on filedocumented in this encounter
--- OUTSIDE RECORDS SUMMARY | 2025-08-22 10:02 | XMS_ITS | Encounter Summary ---
Author Organization [employer] ([place], [place], [place], [place], [place]) Address [address] [place] [address] Care Team Providers Care Vehicle Delivery Worker Name Role Phone Unavailable Primary Care Provider Unavailabl e Encounter Details Date Type Department Care Team (Late st Contact Info) Description 11/24/[address] [facility] [place] Family Medicine [address] [place] [address] ProviderErika MD [address] [place], [place] [id number] Social History Tobacco Use Types Packs/Day Years [...] Chart Reviewed With : SHELDON MUELLER, SHELDON DORMAN RN - 11/24/2018 3:37 EDT documented in this encounter Plan of Treatment Not on file documented as of this encounter Visit Diagnoses Not on filedocumented in this encounter
--- OUTSIDE RECORDS SUMMARY | 2025-08-22 10:02 | XMS_ITS | Encounter Summary ---
Author Organization [employer] ([place], [place], [place], [place], [place]) Address [address] [place] [address] Care Team Providers Care Toe Lining Closer Name Role Phone Unavailable Primary Care Provider Unavailabl e Encounter Details Date Type Department Care Team (Late st Contact Info) Description 11/28/2018 Transcribed Document [facility] [place] Family Medicine [address] [place] [address] ProviderErika MD [address] [place], [place] [phone] Social History Tobacco Use Types Packs/Day Years Used Date Smoking Tobacco: Never Assessed Sex and Gender Information Value Date Recorded Sex Assigned at Not on file Legal Sex Male 5:03 PM CDT Gender Identity Not on file Sexual Orientation Not on file documented as of this encounter Miscellaneous Notes * Cerner Conversion Note - Erika Jose MD - 11/28/2018 8:36 AM CDT Rapid Response Team Documentation Entered On: 11/28/2018 8:40 EDT Performed On: 11/28/2018 8:36 EDT by MICHAEL WALLER RN Rapid Response Event Rapid Response Team Event Interventions : Additional Lab Testing, IV fluid bolus Patient Disposition Post Event : Transfer to critical care Rapid Response Toe Lining Closer #1 : MICHAEL WALLER, TONJA Rapid Response Toe Lining Closer #2 : DIA BINGHAM RN Rapid Response Toe Lining Closer #3 : SRINIVAS LEAL RN [place], CAMERON, [...] Team Initiation Reason Details : 3E 333. SENIOR ENVIRONMENTAL CONSULTANT notified of pt with decrease in BP despite treatment. MD notified. Bolus given and pt labwork obtained. Rapid Response Admission Diagnosis : Atherosclerotic heart disease of [place] coronary artery without angina pectoris Atherosclerotic heart disease of [place] coronary artery without angina pectoris Cerebral infarction, [...] - 11/28/2018 8:36 EDT Electronically signed by Parveen, [facility] Conversion Cement Block Maker Cerner at 12/08/2022 12:11 PM CDT documented in this encounter Plan of Treatment Not on file documented as of this encounter Visit Diagnoses Not on filedocumented in this encounter
--- OUTSIDE RECORDS SUMMARY | 2025-08-22 10:02 | XMS_ITS | Encounter Summary ---
Author Organization [employer] ([place], [place], [place], [place], [place]) Address [address] [place] [address] Care Team Providers Care Fried Cake Maker Name Role Phone Unavailable Primary Care Provider Unavailabl e Encounter Details Date Type Department Care Team (Late st Contact Info) Description 11/29/2018 Transcribed Document [facility] [place] [address] [place] [address] ProviderErika MD [address] [place], [place] [phone] Social History Tobacco Use Types Packs/Day Years Used Date Smoking Tobacco: Never Assessed Sex and Gender Information Value Date Recorded Sex Assigned at Not on file Legal Sex Male 5:03 PM CDT Gender Identity Not on file Sexual Orientation Not on file documented as of this encounter Miscellaneous Notes * [employer]ner Conversion Note - Erika ProviderMD - 11/29/2018 11:15 AM CDT ELECTRIC RANGE SERVICER Attempt to Treat Entered On: 11/29/2018 11:15 [...]
--- OUTSIDE RECORDS SUMMARY | 2025-08-22 10:02 | XMS_ITS | Encounter Summary ---
Author Organization [employer] ([place], [place], [place], [place], [place]) Address [address] [place] [address] Care Team Providers Care Validation Analyst Name Role Phone Unavailable Primary Care Provider Unavailabl e Encounter Details Date Type Department Care Team (Late st Contact Info) Description 12/01/[address] [facility] [place] [address] [place] [address] ProviderErika MD [address] [place] [address] Social History Tobacco Use Types [...] and arrangements, chart reviewed, received word from [facility] that bed is available for patient today, on their stroke unit. Patient to be transported via [facility], p/u set for 3pm. RN report to be called to [phone] and discharge summary to be faxed to [phone]. Pt, RN and family aware and in agreement with plan. ANGELA NAIR Social Worker - 12/01/2018 11:35 EDT Care Management Note Report : SUZANNA HAINES Social Worker - 11/30/18 15:30:18 Covering today for D/c planning, pt back on 3E room 330. Discussed w/ Carmen from [facility] who is still following pt. She has submitted pt info to MD for approval. Pt had EGD 11/29 which revealed duodenal ulcer w/ clot but no bleeding, no intervention needed, Off heparin gtt, watching pt's INR and H & H. Speech signed off today, pt is cleared for thins. Met w/ pt and family and informed them of [facility] situation. Also discussed outpt Cardiac Rehab. They prefer to go to [facility]. Phoned them and left msg, sent pt info to them. CM will cont to follow. ANGELA NAIR Metal Template Maker - 11/26/18 11:20:05 Continue to follow for discharge needs and arrangements, chart reviewed, admission day 10, transfer from [facility], on room air, WBC=11.2, INR=1.1, PTT=55.8, on IV Heparin gtt due to DVT in left arm, MBS completed today now on regular cardiac diet with thin liquids, PT/OT following (not seen on 11/25/18) followed up with [facility] today regarding possible admission - plan is to submit for approval today after being seen by therapy. Awaiting ANGELA NAIR Metal Template Maker - 11/26/18 11:24:04 Continue to follow for discharge needs and arrangements, chart reviewed, admission day 10, transfer from [facility], on room air, WBC=11.2, INR=1.1, PTT=55.8, on IV Heparin gtt due to DVT in left arm, MBS completed today now on regular cardiac diet with thin liquids, PT/OT following (not seen on 11/25/18) followed up with [facility] today regarding possible admission - plan is to submit for approval today after being seen by therapy, for their MD approval. Once accepting MD in place, bed in place and patient is medically stable will be able to transfer due to patient not requiring a insurance prior auth. CM will continue to follow. ODALYS FAULKNER, Rn-Navy Material Inspector - 11/24/18 13:22:19 11/24/18 Andra from [facility] called to let me know they started a precert on this pt. CF ODALYS FAULKNER Rn-Navy Material Inspector - 11/22/18 13:56:32 4/1/19 Pt has had a cva. Spoke to his Connie and son Sumeet at the bedside. Pt is lfacid on the left side. Discussed the need for STR and they decided on [facility]. Sent pt info via [employer] to [facility]. CF Documentation Status Complete : Yes ANGELA NAIR Social Worker - 12/01/2018 11:24 EDT Discharge Planning Details Home Caregiver Name/Relationship : Connie King [phone] spouse Discharge Placement Needs : Rehabilitation unit/facility [...] Yes Patient/Family Notified : Connie King Spouse [phone] ANGELA NAIR Social Worker - 12/01/2018 11:35 EDT Final Discharge Disposition Note-CM Discharge To Care Management : IRF -Inpatient Rehabilitation Facility-62 Name of Receiving Facility/Provider-CM : [facility] Stroke unit ANGELA NAIR Social Worker - 12/01/2018 11:35 EDT Electronically signed by Michele Saini Conversion Silvering Department Supervisor Cerner at 12/08/2022 12:25 PM CDT documented in this encounter Plan of Treatment Not on file documented as of this encounter Visit Diagnoses Not on filedocumented in this encounter
--- OUTSIDE RECORDS SUMMARY | 2025-08-22 10:02 | XMS_ITS | Encounter Summary ---
Author Organization [employer] ([place], [place], [place], [place], [place]) Address [address] [place] [address] Care Team Providers Care Piped Pocket Machine Operator Name Role Phone Unavailable Primary Care Provider Unavailabl e Encounter Details Date Type Department Care Team (Late st Contact Info) Description 11/28/2018 Transcribed Document [facility] [place] [address] [place] [address] ProviderErika MD [address] [place] [address] Social History Tobacco Use Types [...] access. 20R shoulder x1 attempt using vein janitorial maintenance worker. 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
--- OUTSIDE RECORDS SUMMARY | 2025-08-22 10:03 | XMS_ITS | Encounter Summary ---
Author Organization [employer] ([place], [place], [place], [place], [place]) Address [address] [place] [address] Care Team Providers Care Web Content Manager Name Role Phone Unavailable Primary Care Provider Unavailabl e Encounter Details Date Type Department Care Team (Late st Contact Info) Description 11/30/2018 Transcribed Document [facility] [place] [address] [place] [address] ProviderErika MD [address] [place] [address] Social History Tobacco Use Types Packs/Day Years Used Date Smoking Tobacco: Never Assessed Sex and Gender Information Value Date Recorded Sex Assigned at Not on file Legal Sex Male 5:03 PM CDT Gender Identity Not on file Sexual Orientation Not on file documented as of this encounter Miscellaneous Notes * Cerner Conversion Note - Erika ProviderMD - 11/30/2018 3:17 PM CDT Attempt [...]
--- OUTSIDE RECORDS SUMMARY | 2025-08-22 10:03 | XMS_ITS | Encounter Summary ---
Author Organization [employer] ([place], [place], [place], [place], [place]) Address [address] [place] [address] Care Team Providers Care Relief Worker Name Role Phone Unavailable Primary Care Provider Unavailabl e Encounter Details Date Type Department Care Team (Late st Contact Info) Description 11/29/2018 Transcribed Document [facility] [place] [address] [place] [address] ProviderErika MD [address] [place], [place] [id number] Social History Tobacco Use Types Packs/Day Years Used Date Smoking Tobacco: Never Assessed Sex and Gender Information Value Date Recorded Sex Assigned at Not on file Legal Sex Male 5:03 PM CDT Gender Identity Not on file Sexual Orientation Not on file documented as of this encounter Miscellaneous Notes * Cerner Conversion Note - Erika ProviderMD - 11/29/2018 1:37 PM CDT Discharge Summary, CONVERTING OPERATOR Entered On: 11/29/2018 13:40 EDT Performed On: 11/29/2018 13:37 EDT by JOSSUE RODRÍGUEZ SLP Discharge Notation. CONVERTING OPERATOR Dysphagia Treatment After Discharge : No Discharge Diet : Regular Discharge Liquids : Thin Discharge Summary Comment, CONVERTING OPERATOR : Attempted to see pt for language [...] - 11/29/2018 13:37 EDT LTG Lang/Comm/Cog LTG CONVERTING OPERATOR Customs Brokerage Manager Goal 1 Customs Brokerage Manager Goal 2 Goals : Improved spoken language expression at the time of discharge Improved auditory/spoken language comprehension at the time of discharge Status : Discontinue Discontinue JOSSUE RODRÍGUEZ SLP - 11/29/2018 13:37 EDT JOSSUE RODRÍGUEZ, [facility] - 11/29/2018 13:37 EDT STG Lang_Comm_Cog Motor Speech STG Grid Goal #1 Activity : Improve intelligibility of speech Status : Discontinue JOSSUE RODRÍGUEZ [facility] - 11/29/2018 13:37 EDT Auditory Comprehension Grid Goal #1 Goal #2 Activity : Follow directions, 3 step commands simple Comprehend paragraph complex Status : Discontinue Discontinue JOSSUE RODRÍGUEZ [facility] - 11/29/2018 13:37 EDT JOSSUE RODRÍGUEZ, [facility] - 11/29/2018 13:37 EDT Verbal Expression STG Grid Goal #1 Activity : Generate items in a category Status : Discontinue JOSSUE RODRÍGUEZ CONVERTING OPERATOR - 11/29/2018 13:37 EDT Reading Comprehension STG Grid Goal #1 Activity : Visual perception deficits Status : Discontinue JOSSUE RODRÍGUEZ CONVERTING OPERATOR - 11/29/2018 13:37 EDT Attention STG Grid Goal #1 Activity : Other: Probe Status : Goal met Date Met : 11/24/2018 EDT JOSSUE RODRÍGUEZ [facility] - 11/29/2018 13:37 EDT Memory STG Grid Goal #1 Goal #2 Goal #3 Activity : Other: Probe Improve short term functional delayed Improve short term working memory Status : Goal met Discontinue Discontinue Date Met : 11/24/2018 EDT JOSSUE RODRÍGUEZ, [facility] - 11/29/2018 13:37 EDT JOSSUE RODRÍGUEZ, [facility] - 11/29/2018 13:37 EDT JOSSUE RODRÍGUEZ, [facility] - 11/29/2018 13:37 EDT Problem Solving STG Grid Goal #1 Goal #2 Goal #3 Goal #4 Activity : Generate a list of simple/concrete items Label items in a category, complex/abstract Other: Probe Improve simple problem solving Status : Discontinue Discontinue Goal met Discontinue Date Met : 11/24/2018 EDT JOSSUE RODRÍGUEZ, CONVERTING OPERATOR - 11/29/2018 13:37 EDT JOSSUE RODRÍGUEZ, [facility] - 11/29/2018 13:37 EDT JOSSUE RODRÍGUEZ, [facility] - 11/29/2018 13:37 EDT JOSSUE RODRÍGUEZ, CONVERTING OPERATOR - 11/29/2018 13:37 EDT Swallow Plan/Goals Swallow LTG Grid CONVERTING OPERATOR Customs Brokerage Manager Goal #1 CONVERTING OPERATOR Customs Brokerage Manager Goal #2 Swallow LTG : Establish [...] JOSSUE RODRÍGUEZ SLP - 11/29/2018 13:37 EDT Electronically signed by Christina Saini Conversion Mail Processing Machine Operator Cerner at 12/08/2022 12:13 PM CDT documented in this encounter Plan of Treatment Not on file documented as of this encounter Visit Diagnoses Not on filedocumented in this encounter
--- OUTSIDE RECORDS SUMMARY | 2025-08-22 10:03 | XMS_ITS | Encounter Summary ---
Author Organization [employer] ([place], [place], [place], [place], [place]) Address [address] [place] [address] Care Team Providers Care Manager Hematology Name Role Phone Unavailable Primary Care Provider Unavailabl e Encounter Details Date Type Department Care Team (Late st Contact Info) Description 11/28/2018 Transcribed Document [facility] [place] [address] [place] [address] ProviderErika MD [address] [place], [place] [phone] Social History Tobacco Use Types Packs/Day Years Used Date Smoking Tobacco: Never Assessed Sex and Gender Information Value Date Recorded Sex Assigned at Not on file Legal Sex Male 5:03 PM CDT Gender Identity Not on file Sexual Orientation Not on file documented as of this encounter Miscellaneous Notes * Cerner Conversion Note - Erika ProviderMD - 11/28/2018 8:26 AM CDT Consult Phone Call Documentation Entered On: 11/28/2018 11:41 EDT Performed On: 11/28/2018 8:26 EDT by DIA BINGHAM, RN Phone Call for Consults Consult Phone Call/Page Attempt : First call DIA BINGHAM RN - 11/28/2018 11:41 EDT Electronically signed by Christina Saini Conversion Nuclear Powerplant Mechanic Cerner at 12/08/2022 12:39 PM CDT documented in this encounter Plan of Treatment Not on file documented as of this encounter Visit Diagnoses Not on filedocumented in this encounter
--- OUTSIDE RECORDS SUMMARY | 2025-08-22 10:03 | XMS_ITS | Encounter Summary ---
Author Organization [employer] ([place], [place], [place], [place], [place]) Address [address] [place] [address] Care Team Providers Care Contact Lens Polisher Name Role Phone Unavailable Primary Care Provider Unavailabl e Encounter Details Date Type Department Care Team (Late st Contact Info) Description 11/30/2018 Transcribed Document [facility] [place] Medicine [address] [place] [address] ProviderErika MD [address] [place] [address] Social History Tobacco Use Types Packs/Day Years Used Date Smoking Tobacco: Never Assessed Sex and Gender Information Value Date Recorded Sex Assigned at Not on file Legal Sex Male 5:03 PM CDT Gender Identity Not on file Sexual Orientation Not on file documented as of this encounter Miscellaneous Notes * Cerner Conversion Note - Erika ProviderMD - 11/30/2018 5:00 PM CDT Chart Check - Review Order Profile Entered On: 11/30/2018 18:03 EDT Performed On: 11/30/2018 17:00 EDT by CHIQUI STATON RN Chart Check All Active Orders Reviewed : Yes CHIQUI STATON RN - 11/30/2018 18:02 EDT documented in this encounter Plan of Treatment Not on file documented as of this encounter Visit Diagnoses Not on filedocumented in this encounter
--- OUTSIDE RECORDS SUMMARY | 2025-08-22 10:03 | XMS_ITS | Encounter Summary ---
Author Organization [employer] ([place], [place], [place], [place], [place]) Address [address] [place] [address] Care Team Providers Care Aoc Plans Intelligence Officer Chief Name Role Phone Unavailable Primary Care Provider Unavailabl e Encounter Details Date Type Department Care Team (Late st Contact Info) Description 11/30/2018 Transcribed Document [facility] [place] [address] [place] [address] ProviderErika MD [address] [place] [address] Social History Tobacco Use Types [...] Performed On: 11/30/2018 15:24 EDT by SUZANNA HAINES, Instructor Creeler Care Management Note Anticipated Discharge Date : 12/01/2018 14:00 EDT Care Management Note : Covering today for D/c planning, pt back on 3E room 330. Discussed w/ Carmen from [facility] who is still following pt. She has submitted pt info to for approval. Pt had EGD 11/29 which revealed duodenal ulcer w/ clot but no bleeding, no intervention needed, Off heparin gtt, watching pt's INR and H & H. Speech signed off today, pt is cleared for thins. Met w/ pt and family and informed them of [facility] situation. Also discussed outpt Cardiac Rehab. They prefer to go to [facility]. Phoned them and left msg, sent pt [...] (not seen on 11/25/18) followed up with [facility] today regarding possible admission - plan [...] (not seen on 11/25/18) followed up with [facility] today regarding possible admission - plan is to submit for approval today after being seen by therapy, for their MD approval. Once accepting MD in place, bed in place and patient is medically stable will be able to transfer due to patient not requiring a insurance prior auth. CM will continue to follow. ODALYS FAULKNER Rn-Process Control Tech - 11/24/18 13:22:19 11/24/18 Andra from [facility] called to let me know they started a precert on this pt. CF ODALYS FAULKENR Rn-Process Control Tech - 11/22/18 13:56:32 11/22/18 Pt has had a cva. Spoke to his Connie and son Sumeet at the bedside. Pt is lfacid on the left side. Discussed the need for STR and they decided on [facility]. Sent pt info via [employer] to [facility]. CF Documentation Status Complete : Yes SUZANNA HAINES Social Worker - 11/30/2018 15:24 EDT Discharge Planning Details Persons Assisting Patient at Home : Spouse SUZANNA HAINES Social Worker - 11/30/2018 15:24 EDT Electronically signed by [facility] Conversion Job Placement Specialist Cerner at 12/08/2022 12:27 PM CDT documented in this encounter Plan of Treatment Not on file documented as of this encounter Visit Diagnoses Not on filedocumented in this encounter
--- OUTSIDE RECORDS SUMMARY | 2025-08-22 10:03 | XMS_ITS | Encounter Summary ---
Author Organization [employer] ([place], [place], [place], [place], [place]) Address [address] [place] [address] Care Team Providers Care Enrollment Management Director Name Role Phone Unavailable Primary Care Provider Unavailabl e Encounter Details Date Type Department Care Team (Late st Contact Info) Description 11/30/2018 Transcribed Document [facility] [place] [facility] [place] [address] ProviderErika MD [address] [place], [place] [id number] Social History Tobacco Use Types Packs/Day Years Used Date Smoking Tobacco: Never Assessed Sex and Gender Information Value Date Recorded Sex Assigned at Not on file Legal Sex Male 5:03 PM CDT Gender Identity Not on file Sexual Orientation Not on file documented as of this encounter Miscellaneous Notes * Cerner Conversion Note - Erika Jose MD - 11/30/2018 8:51 AM CDT Patient: DOTTIE VILLASENOR Age: 78 years Sex: Male : 1940 Associated Diagnoses: CAD (coronary artery disease), [place] coronary artery; Thrombocytopenia; Coronary artery disease; HTN [...] Non-distended, Normal bowel sounds. Integumentary: Warm, Dry, [place], incision is C/D/I. Neurologic: Alert, left sided [...] (Current Encounter/Past 24 Hours) PT 27.4 Second(s) NM 11/30/2018 07:23 INR 2.6 NM 11/30/2018 07:23 . Impression and Plan Plan: [...] of discharge- CM has sent information to [facility] -Transfer to [facility] 11/24/18 -POD#8 -Awaiting transfer to [facility] -Awaiting response from [facility] 11/25/18 -POD#9 -left upper extremity venous doppler - doppler this am positive for LUE DVT - will start coumadin and heparin bridge -awaiting [facility] 11/26/18 -POD#10 -Heparin drip and coumadin for LUE DVT -Left arm swelling improved today -INR 1.1 today, INR goal 2-3 -Possibly transfer to [facility] this weekend 11/27/18: -POD#11 -Left arm swelling continues to improve -Continues on Coumadin and heparin bridge -INR: 1.4 (1.1 yesterday) goal: 2 to 3 -[facility] soon,? Tomorrow 11/28/18: -POD#12 -BP in 70s-80s [...] been set up. -Transferred to [facility] 11/29/18: -POD#13 -Upper endoscopy showed duodenal ulceration [...] -Transfer to [facility] 11/30/18 POD # 14 EGD yesterday - duodenal ulceration with clot, no active bleeding and no intervention performed INR trending down, off coumadin and heparin Speech signed off yesterday - speech and cognition back to baseline Watch INR and H&H [facility] upon discharge EF 55-60% per echo 11/16/18 DVT Prophylaxis: SCDs Diagnosis CAD (coronary artery disease), [place] coronary artery - Admitting, Medical. Thrombocytopenia - [...] bleed - Discharge, Medical. Electronically signed by Parveen, [facility] Conversion Bullet Swaging Machine Operator Cerner at 12/08/2022 12:34 PM CDT documented in this encounter Plan of Treatment Not on file documented as of this encounter Visit Diagnoses Not on filedocumented in this encounter
--- OUTSIDE RECORDS SUMMARY | 2025-08-22 10:03 | XMS_ITS | Encounter Summary ---
Author Organization [employer] ([place], [place], [place], [place], [place]) Address [address] [place] [address] Care Team Providers Care Link Fabric Machine Operator Name Role Phone Unavailable Primary Care Provider Unavailabl e Encounter Details Date Type Department Care Team (Late st Contact Info) Description 11/17/2018 Transcribed Document [facility] [place] [address] [place] [address] ProviderErika MD [address] [place] [address] Social History Tobacco Use Types [...] - 11/17/2018 13:44 EDT Electronically signed by Parveen [facility] Conversion Outsoles Channel Opener Cerner at 12/08/2022 12:19 PM CDT documented in this encounter Plan of Treatment Not on file documented as of this encounter Visit Diagnoses Not on filedocumented in this encounter
--- OUTSIDE RECORDS SUMMARY | 2025-08-22 10:03 | XMS_ITS | Encounter Summary ---
Author Organization [employer] ([place], [place], [place], [place], [place]) Address [address] [place] [address] Care Team Providers Care Beamer Helper Name Role Phone Unavailable Primary Care Provider Unavailabl e Encounter Details Date Type Department Care Team (Late st Contact Info) Description 11/17/2018 Transcribed Document [facility] [place] Medicine [address] [place] [address] ProviderErika MD [address] [place], [place] [id number] Social History Tobacco Use Types Packs/Day Years [...] 1940 Associated Diagnoses: CAD (coronary artery disease), [place] coronary artery; Thrombocytopenia; Coronary artery disease; HTN [...] Palpable bilateral DP pulses. Integumentary: Warm, Dry, [place]. Neurologic: Not alert. Review / Management Results review: NOV 17 03:12 142 110 20 / H 115 4.1 25 1.10 \ NOV 17 03:12 \ L 10.7 / H 15.3 L 112 / L 32.1 \ Blood Gases (Current Encounter/Past 24 Hours) pH Art 7.48 MO 11/17/2018 05:17 pCO2 Art 31.2 LOW 11/17/2018 [...] NA 11/16/2018 13:12 Set Rate Art 14.0 11/17/2018 05:17 Respiratory Rate Art 52.0 NA 11/17/2018 05:17 CPAP/PEEP Art 5.0 NA 11/16/2018 18:24 Pressure Support Art 8.0 NA 11/16/2018 18:24 Comment Art nppv 18/8 11/17/2018 05:17 pH Art POC 7.430 11/16/2018 12:06 pCO2 Art POC 43.0 11/16/2018 12:06 pO2 Art POC 433.0 MO 11/16/2018 12:06 HCO3 Art POC 28.5 MO 11/16/2018 12:06 tCO2 Art POC 30.0 MO 11/16/2018 12:06 BE Art POC 4.0 MO 11/16/2018 12:06 sO2 Art POC >99.9 MO 11/16/2018 12:06 ABG Num of Draw Attempts 1 11/17/2018 05:17 Coagulation Results (Current Encounter/Past 24 Hours) No Coagulation Results Found (Past 24 Hours) . Impression and Plan Plan: 11/17/18 -POD#1 -MTs left in place secondary to drainage EF 55-60% per echo 11/16/18 DVT Prophylaxis: SCDs Diagnosis CAD (coronary artery disease), [place] coronary artery - Admitting, Medical. Thrombocytopenia - [...]
--- OUTSIDE RECORDS SUMMARY | 2025-08-22 10:03 | XMS_ITS | Encounter Summary ---
Author Organization [employer] ([place], [place], [place], [place], [place]) Address [address] [place] [address] Care Team Providers Care Smeller Name Role Phone Unavailable Primary Care Provider Unavailabl e Encounter Details Date Type Department Care Team (Late st Contact Info) Description 11/16/2018 Transcribed Document [facility] [address] [place] [address] Niles Nunez MD [address] [place], [place] [id number] Social History Tobacco Use Types Packs/Day Years [...]
--- OUTSIDE RECORDS SUMMARY | 2025-08-22 10:03 | XMS_ITS | Encounter Summary ---
Author Organization [employer] ([place], [place], [place], [place], [place]) Address [address] [place] [address] Care Team Providers Care Youth Teacher Name Role Phone Unavailable Primary Care Provider Unavailabl e Encounter Details Date Type Department Care Team (Late st Contact Info) Description 11/30/2018 Transcribed Document [facility] [place] [facility] [place] [address] ProviderErika MD [address] [place] [address] Social History Tobacco Use [...] MD - 11/30/2018 3:31 PM CDT [address] [address] Patient Copy Patient Information: Name: DOTTIE VILLASENOR Current Date: 11/30/2018 15:31:38 : 1940 Patient Address: [address] [place] [id number] Patient Attending Physician: JULIO CESAR CARVALHO MD-CAT [...] JOHN BOWEN [address], [address] [place] [address] Business (1) Within 6 weeks Comments: Patient should call for a follow up appointment with [facility]. Discharge Instructions: Driving after Discharge: Do not drive, Other: No driving or operating heavy machinery until released by a physician. Community Services: Outpt Cardiac Rehab [facility] [phone] They will call pt w/ appt time. [...] 09/17/2005 Document Revised: 01/15/2017 Document Reviewed: 02/10/2014 [employer] Interactive Patient Education ? 2017 [employer] CIGARETTE SMOKING: The facts are clear, cigarette smoking will shorten your life. Smoking can cause many illnesses along the way. As a healthcare provider, we recommend that you stop smoking. Assistance with quitting is available by contacting 1-327-UVRW-NOW. This is a free resource providing counseling, [...] Be sure to sign up for the [employer] patient portal, which gives you 16/03 access to your medical information ??? including these discharge instructions ??? using your computer, smartphone, or tablet. Just go to [employer] to get started. Questions? Call . [facility] would like to thank you for allowing us to assist you with your healthcare needs. HAMILTON Jarvis ROBERT H, (or guest relations representative) have received the above patient education materials/instructions and have verbalized understanding: Patient Signature _ Date/Time Patient Senior Care Assistant Signature (if needed) Date/Time Clinician/Hospital Senior Care Assistant Signature (if needed) Date/Time documented in this encounter Plan of Treatment Not on file documented as of this encounter Visit Diagnoses Not on filedocumented in this encounter
--- OUTSIDE RECORDS SUMMARY | 2025-08-22 10:03 | XMS_ITS | Encounter Summary ---
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
--- OUTSIDE RECORDS SUMMARY | 2025-08-22 10:03 | XMS_ITS | Encounter Summary ---
Author Organization [employer] ([place], [place], [place], [place], [place]) Address [address] [place] [address] Care Team Providers Care Abap Developer Name Role Phone Unavailable Primary Care Provider Unavailabl e Encounter Details Date Type Department Care Team (Late st Contact Info) Description 11/16/2018 Transcribed Document [facility] [place] [facility] [place] [address] ProviderErika MD [address] [place] [id number] Social History Tobacco Use Types Packs/Day Years [...] All Problems Prostate stricture / SNOMED CT 84403963 / Confirmed Restless legs syndrome / SNOMED CT 27559677 / Confirmed Nocturia / SNOMED CT 159469187 / Confirmed Cancer of skin of face / SNOMED CT 3248922628 / Confirmed Frequent urination / SNOMED CT 510747979 / Confirmed Hypothyroidism / SNOMED CT 88250672 / Confirmed HTN - Hypertension / SNOMED CT 4299552903 / Confirmed Disorder of prostate ( enlarged) / SNOMED CT 95139708 / Confirmed CAD (coronary artery disease) / SNOMED CT 22514147 / Confirmed At risk for sleep apnea / IMO 95798966 / Confirmed Arthritis / SNOMED CT 0053388 / Confirmed Aortic valve insufficiency / SNOMED CT 037379968 / Confirmed Aneurysm, thoracic aortic / SNOMED CT 2122700648 / Confirmed, Active Problems (13) Aneurysm, thoracic aortic Aortic valve insufficiency Arthritis At risk for sleep apnea CAD (coronary artery disease) Cancer of skin of face Disorder of prostate ( enlarged) Frequent urination HTN - Hypertension Hypothyroidism Nocturia Prostate stricture Restless legs syndrome Histories Past Medical History: Active HTN - Hypertension (2301133416) Hypothyroidism (05180983) Family History: Entire family history is negative. [...] EDT Height Source Measured Height Entry Format [place] Height/Length, BURM[place] (ft) 6 ft Height/Length BURMESE 1 Inch CLINICALHEIGHT 185.42 cm [place] Body Weight 79 kg Weight Source Standing scale Weight Entry Format [place] Weight Singaporean lb 174 lb Weight Singaporean oz 5 oz CLINICALWEIGHT 79.23 kg Body [...] of motion, Normal strength. Integumentary: Warm, Dry, [place]. Neurologic: Alert, Oriented. Psychiatric: Cooperative, Appropriate mood [...] % 32.4 % Lymph # 2.32 x10(3)/uL [place] % 9.5 % HI Donley # 0.68 K/uL Eos % 1.1 % [...] Color Yellow Urine Appearance Clear Urine Specific [place] 1.016 Urine pH Dipstick 6.5 Urine Leukocyte Esterase Negative Urine Nitrite Negative Urine Protein Dipstick Negative Urine Glucose Dipstick Negative Urine Ketones Dipstick Negative Urine Urobilinogen Dipstick 0.2 EU/dL Urine Bilirubin Dipstick Negative Urine Blood Dipstick Negative 11/15/2018 13:33 EDT RBC Product Ready RBC Ready # of Units 2 . Impression and Plan Condition: Stable. Electronically signed by Christina Saini Conversion Amphibious Operations Officer Cerner at 12/08/2022 12:35 PM CDT documented in this encounter Plan of Treatment Not on file documented as of this encounter Visit Diagnoses Not on filedocumented in this encounter
--- OUTSIDE RECORDS SUMMARY | 2025-08-22 10:03 | XMS_ITS | Encounter Summary ---
Author Organization [employer] ([place], [place], [place], [place], [place]) Address [address] [place] [address] Care Team Providers Care Veneer Sorter Name Role Phone Unavailable Primary Care Provider Unavailabl e Encounter Details Date Type Department Care Team (Late st Contact Info) Description 11/30/2018 Transcribed Document [facility] [place] [address] [place] [address] ProviderErika MD [address] [place] [address] Social History Tobacco Use Types [...]
--- OUTSIDE RECORDS SUMMARY | 2025-08-22 10:03 | XMS_ITS | Encounter Summary ---
Author Organization [employer] ([place], [place], [place], [place], [place]) Address [address] [place] [address] Care Team Providers Care Gifted Teacher Name Role Phone Unavailable Primary Care Provider Unavailabl e Encounter Details Date Type Department Care Team (Late st Contact Info) Description 11/16/2018 Transcribed Document [facility] [place] [address] [place] [address] ProviderErika MD [address] [place], [...] Conversion Note - Erika ProviderMD - 11/16/2018 5:00 PM CDT Chart [...]
--- OUTSIDE RECORDS SUMMARY | 2025-08-22 10:03 | XMS_ITS | Encounter Summary ---
Author Organization [employer] ([place], [place], [place], [place], [place]) Address [address] [place] [address] Care Team Providers Care Wire Stitcher Name Role Phone Unavailable Primary Care Provider Unavailabl e Encounter Details Date Type Department Care Team (Late st Contact Info) Description 11/17/2018 Transcribed Document [facility] [place] [address] [place] [address] ProviderErika MD [address] [place], [...] Conversion Note - Erika ProviderMD - 11/17/2018 5:00 AM CDT Chart [...]
--- OUTSIDE RECORDS SUMMARY | 2025-08-22 10:03 | XMS_ITS ---
Laboratory report Created on: July 25, 2025 DOTTIE VILLASENOR : 1940 Sex: Male Author Organization Unknown PROBLEMS Problems List Code Description RESULTS Laboratory Orders Date Order Code Test 2024-05-29 [id number] HCV ANTIBODY RFX TO QUANT PCR Laboratory Results Date LOINC Test Value Unit Reference Range Interpre tation 2024-05-29 [id number] HCV AB NR NON REACTIVE
--- OUTSIDE RECORDS SUMMARY | 2025-08-22 10:03 | XMS_ITS | Encounter Summary ---
Author Organization [employer] ([place], [place], [place], [place], [place]) Address [address] [place] [address] Care Team Providers Care Merchandise Planning Manager Name Role Phone Unavailable Primary Care Provider Unavailabl e Encounter Details Date Type Department Care Team (Late st Contact Info) Description 11/28/2018 Transcribed Document [facility] [place] [address] [place] [address] ProviderErika MD [address] [place] [address] Social History Tobacco Use Types [...]
--- OUTSIDE RECORDS SUMMARY | 2025-08-22 10:03 | XMS_ITS | Encounter Summary ---
Author Organization [employer] ([place], [place], [place], [place], [place]) Address [address] [place] [address] Care Team Providers Care Pharmacy Student Name Role Phone Unavailable Primary Care Provider Unavailabl e Encounter Details Date Type Department Care Team (Late st Contact Info) Description 11/16/2018 Transcribed Document [facility] Family Medicine [address] [place] [address] ProviderErika MD [address] [place] [address] Social History Tobacco Use Types [...] On: 11/16/2018 12:27 EDT by Lorin Pratt, [facility] Coord Phone Call for Consults Consult Phone Call/Page Attempt : Other: Valve: no call Lorin Pratt Webfocus DeveloperHealth Unit Coord - 11/16/2018 13:34 EDT documented in this encounter Plan of Treatment Not on file documented as of this encounter Visit Diagnoses Not on filedocumented in this encounter
--- OUTSIDE RECORDS SUMMARY | 2025-08-22 10:03 | XMS_ITS | Encounter Summary ---
Author Organization [employer] ([place], [place], [place], [place], [place]) Address [address] [place] [address] Care Team Providers Care Security Software Engineer Name Role Phone Unavailable Primary Care Provider Unavailjuliana e Encounter Details Date Type Department Care Team (Late st Contact Info) Description 11/17/2018 Transcribed Document [facility] [place] [address] [place] [address] ProviderErika MD [address] [place] [address] Social History Tobacco Use Types Packs/Day Years Used Date Smoking Tobacco: Never Assessed Sex and Gender Information Value Date Recorded Sex Assigned at Not on file Legal Sex Male 5:03 PM CDT Gender Identity Not on file Sexual Orientation Not on file documented as of this encounter Miscellaneous Notes * Cerner Conversion Note - Erika Jose MD - 11/17/2018 11:49 AM CDT Nutrition Assessment Entered On: 11/17/2018 11:49 EDT Performed On: 11/17/2018 11:49 EDT by Lizabeth Marti, [employer] Attendant Nutrition Assessment Nutrition Assessment Reason : Consult [...] wnls + sternum midline incision GI: LBM CERAMIC ARTIST, hypoactive BS, +NGT, +chest tube (1030 ml) HT: 185cm (6'1) ADMIT WT: 79kg/174# BMI: 23 IBW: 79kg/100% NFPE: insignificant EST NEEDS: 7429-8678 kcal (25-30kcal/kg), 95g pro (1.2g/kg) Lizabeth Marti Dietician - 11/17/2018 11:44 EDT Teaching/Learning Assessment Lizabeth Marti Dietician - 11/17/2018 11:52 EDT Lizabeht Marti Dietician - 11/17/2018 11:53 EDT Nutrition [...] Maintanence Gastrointestinal Function : Bowel Function Lizabeth Marit Dietician - 11/17/2018 11:44 EDT Nutrition Recommendations Dietitian Recommendations : 1. recommend d/c D5W and initiate TF: osmolite 1.5 @ 60ml/hr + 1 proteinex daily (provides 2040 kcal, 98g pro). FW per MD. goal: provide nutrition, meet est needs 2. as medically able, recommend initate po diet (cardiac) w/consitencies per STAKING PRESS OPERATOR. RD will monitor need for [...]
--- OUTSIDE RECORDS SUMMARY | 2025-08-22 10:03 | XMS_ITS | Encounter Summary ---
Author Organization [employer] ([place], [place], [place], [place], [place]) Address [address] [place] [address] Care Team Providers Care Personal Health Coach Name Role Phone Unavailable Primary Care Provider Unavailabl e Encounter Details Date Type Department Care Team (Late st Contact Info) Description 11/23/[address] [facility] [place] [address] [place] [address] ProviderErika MD [address] [place], [...] unspecified 11/17/2018 00:00 Atherosclerotic heart disease of [place] coronary artery without angina pectoris 11/17/2018 00:00 Essential (primary) hypertension 11/17/2018 00:00 Hypothyroidism, unspecified 11/17/2018 00:00 Nonrheumatic aortic (valve) insufficiency 11/17/2018 00:00 Restless legs syndrome 11/17/2018 00:00 Thoracic aortic aneurysm, without rupture 11/17/2018 00:00 Thrombocytopenia, unspecified 11/16/2018 00:00 Atherosclerotic heart disease of [place] coronary artery without angina pectoris 11/16/2018 00:00 [...] Family present. MaxAx2 chair to bed transfer, LINER HELPER. RN assisting. Pt's L UE very weak. Pt's L LE very weak. MaxAx2 sit to supine and to scoot pt up in bed. Assessment : Progressing. AUDREY GRANDE OTR/Ginny - 11/30/2018 15:25 EDT Pain Assessment Pain Scaled Used : 0-10 Pain scale Pain Score Post-Intervention. : 0 AUDREY GRANDE OTR/Ginny - 11/30/2018 15:25 EDT Image 1 - [...]
--- OUTSIDE RECORDS SUMMARY | 2025-08-22 10:03 | XMS_ITS | Encounter Summary ---
Author Organization [employer] ([place], [place], [place], [place], [place]) Address [address] [place] [address] Care Team Providers Care Spout Liner Name Role Phone Unavailable Primary Care Provider Unavailabl e Encounter Details Date Type Department Care Team (Late st Contact Info) Description 11/30/2018 Transcribed Document [facility] Family Medicine [address] [place] [address] ProviderErika MD [address] [place] [address] Social History Tobacco Use Types Packs/Day Years Used Date Smoking Tobacco: Never Assessed Sex and Gender Information Value Date Recorded Sex Assigned at Not on file Legal Sex Male 5:03 PM CDT Gender Identity Not on file Sexual Orientation Not on file documented as of this encounter Miscellaneous Notes * Cerner Conversion Note - Erika ProviderMD - 11/30/2018 5:00 AM CDT Chart [...]
--- OUTSIDE RECORDS SUMMARY | 2025-08-22 10:03 | XMS_ITS | Encounter Summary ---
Author Organization [employer] ([place], [place], [place], [place], [place]) Address [address] [place] [address] Care Team Providers Care Roll Grinder Name Role Phone Unavailable Primary Care Provider Unavailabl e Encounter Details Date Type Department Care Team (Late st Contact Info) Description 11/28/2018 Transcribed Document [facility] [place] [facility] [place] [address] ProviderErika MD [address] [place] [address] Social History Tobacco Use Types Packs/Day Years Used Date Smoking Tobacco: Never Assessed Sex and Gender Information Value Date Recorded Sex Assigned at Not on file Legal Sex Male 5:03 PM CDT Gender Identity Not on file Sexual Orientation Not on file documented as of this encounter Miscellaneous Notes * Cerner Conversion Note - Eirka Jose MD - 11/28/2018 11:04 AM CDT [...] Jacob Coy MD Electronically signed by Parveen [facility] Conversion Bobbin Loose End Finder Cerner at 12/08/2022 12:31 PM CDT documented in this encounter Plan of Treatment Not on file documented as of this encounter Visit Diagnoses Not on filedocumented in this encounter
--- OUTSIDE RECORDS SUMMARY | 2025-08-22 10:03 | XMS_ITS | Encounter Summary ---
Author Organization [employer] ([place], [place], [place], [place], [place]) Address [address] [place] [address] Care Team Providers Care Straw Hat Brusher Name Role Phone Unavailable Primary Care Provider Unavailabl e Encounter Details Date Type Department Care Team (Late st Contact Info) Description 11/26/2018 Transcribed Document [facility] [place] [address] [place] [address] ProviderErika MD [address] [place], [...] Conversion Note - Erika ProviderMD - 11/26/2018 5:00 PM CDT Chart [...]
--- OUTSIDE RECORDS SUMMARY | 2025-08-22 10:03 | XMS_ITS | Encounter Summary ---
Author Organization [employer] ([place], [place], [place], [place], [place]) Address [address] [place] [address] Care Team Providers Care Transportation Attendant Name Role Phone Unavailable Primary Care Provider Unavailabl e Encounter Details Date Type Department Care Team (Late st Contact Info) Description 11/17/2018 Transcribed Document [facility] [place] [address] [place] [address] ProviderErika MD [address] [place] [address] Social History Tobacco Use Types Packs/Day Years Used Date Smoking Tobacco: Never Assessed Sex and Gender Information Value Date Recorded Sex Assigned at Not on file Legal Sex Male 5:03 PM CDT Gender Identity Not on file Sexual Orientation Not on file documented as of this encounter Miscellaneous Notes * Cerner Conversion Note - Erika ProviderMD - 11/17/2018 5:00 PM CDT Chart [...]
--- OUTSIDE RECORDS SUMMARY | 2025-08-22 10:03 | XMS_ITS | Encounter Summary ---
Author Organization [employer] ([place], [place], [place], [place], [place]) Address [address] [place] [address] Care Team Providers Care Loan Associate Name Role Phone Unavailable Primary Care Provider Unavailabl e Encounter Details Date Type Department Care Team (Late st Contact Info) Description 11/28/2018 Transcribed Document [facility] [place] [address] [place] [address] ProviderErika MD [address] [place] [address] Social History Tobacco Use Types Packs/Day Years [...]
--- OUTSIDE RECORDS SUMMARY | 2025-08-22 10:03 | XMS_ITS | Encounter Summary ---
Author Organization [employer] ([place], [place], [place], [place], [place]) Address [address] [place] [address] Care Team Providers Care Manager Of Quality Name Role Phone Unavailable Primary Care Provider Unavailabl e Encounter Details Date Type Department Care Team (Late st Contact Info) Description 11/05/2018 Transcribed Document [facility] [place] [address] [place] [address] ProviderErika MD [address] [place] [address] Social History Tobacco Use Types [...]
--- OUTSIDE RECORDS SUMMARY | 2025-08-22 10:03 | XMS_ITS | Encounter Summary ---
Author Organization [employer] ([place], [place], [place], [place], [place]) Address [address] [place] [address] Care Team Providers Care Vice President Of Manufacturing Name Role Phone Unavailable Primary Care Provider Unavailabl e Encounter Details Date Type Department Care Team (Late st Contact Info) Description 11/23/2018 Transcribed Document [facility] [place] Family Medicine [address] [place] [address] ProviderErika MD [address] [place] [address] Social History Tobacco Use Types Packs/Day Years Used Date Smoking Tobacco: Never Assessed Sex and Gender Information Value Date Recorded Sex Assigned at Not on file Legal Sex Male 5:03 PM CDT Gender Identity Not on file Sexual Orientation Not on file documented as of this encounter Miscellaneous Notes * Cerner Conversion Note - Erika Jose MD - 11/23/2018 9:00 PM CDT NIH Stroke Scale *Q Entered On: 11/23/2018 20:19 EDT Performed On: 11/23/2018 21:00 EDT by SHELDON MUELLER RN NIH Stroke Scale *Q NIH Assessment Interval : Other: shift Time of Assessment : 11/23/2018 20:00 EDT [facility] Clinician Administering Scale : SHELDON MUELLER [...] in one limb NIH Sensory (8) : [id number] sensory loss NIH Best Language (9) : No aphasia NIH Dysarthria (10) : Normal Extinction and Inattention (11) : No abnormality NIH Scale Score : 9 SHELDON MUELLER RN - 11/23/2018 20:14 EDT Electronically signed by Parveen [facility] Conversion Lock And Dam Equipment Repairer Cerner at 12/08/2022 12:13 PM CDT documented in this encounter Plan of Treatment Not on file documented as of this encounter Visit Diagnoses Not on filedocumented in this encounter
--- OUTSIDE RECORDS SUMMARY | 2025-08-22 10:03 | XMS_ITS | Encounter Summary ---
Author Organization [employer] ([place], [place], [place], [place], [place]) Address [address] [place] [address] Care Team Providers Care Lumber Sorter Machine Name Role Phone Unavailable Primary Care Provider Unavailabl e Encounter Details Date Type Department Care Team (Late st Contact Info) Description 11/21/2018 Transcribed Document [facility] [place] [address] [place] [address] ProviderErika MD [address] [place] [address] Social History Tobacco Use Types Packs/Day Years Used Date Smoking Tobacco: Never Assessed Sex and Gender Information Value Date Recorded Sex Assigned at Not on file Legal Sex Male 5:03 PM CDT Gender Identity Not on file Sexual Orientation Not on file documented as of this encounter Miscellaneous Notes * Cerner Conversion Note - Erika ProviderMD - 11/21/2018 5:00 AM CDT Chart [...]
--- OUTSIDE RECORDS SUMMARY | 2025-08-22 10:03 | XMS_ITS | Encounter Summary ---
Author Organization [employer] ([place], [place], [place], [place], [place]) Address [address] [place] [address] Care Team Providers Care Solutions Consultant Name Role Phone Unavailable Primary Care Provider Unavailabl e Encounter Details Date Type Department Care Team (Late st Contact Info) Description 11/15/2018 Transcribed Document [facility] [place] [address] [place] [address] ProviderErika MD [address] [place] [address] Social History Tobacco Use Types [...] Source : Measured Height Entry Format : [place] Height, Feet : 6 ft(Converted to: 183 cm, 72 Inch) Height, Inches : 1 Inch(Converted to: 0 ft 1 Inch, 2.54 cm) Clinical Height : 185.42 cm Weight Source : Standing scale Weight Entry Format : [place] Clinical Dosing Weight : 79.23 kg Weight, Pounds : 174 lb Weight, Ounces : 5 oz Body Surface Area (BSA) : 2.03 m2 Body Mass Index : 23 kg/m2 [place] Body Weight : 79 kg ANGELA KEY [...] Ambulatory Legal Guardian : Spouse Support Person/Patient Box Maker Wood : Yes Support Person/Pt Rep Name : Connie- Sumeet - son Support Person/Pt Rep Contact Information : [phone] home [phone] - cell Want Family/Rep/Phys Notified of Admit : No Emergency Contact #1 : Connie Emergency Contact #1 Emergency Contact #1 Relationship : Emergency Contact #2 : Sumeet Emergency Contact #2 Emergency Contact #2 Relationship : son Information Obtained From : Patient, Medical Record Primary Language : Qatari Preferred Communication Mode : Verbal Communication Barrier [...] 11/15/2018 13:52 EDT Electronically signed by Parveen [facility] Conversion Dehydration Unit Operator Cerner at 12/08/2022 12:30 PM CDT documented in this encounter Plan of Treatment Not on file documented as of this encounter Visit Diagnoses Not on filedocumented in this encounter
--- OUTSIDE RECORDS SUMMARY | 2025-08-22 10:03 | XMS_ITS | Encounter Summary ---
Author Organization [employer] ([place], [place], [place], [place], [place]) Address [address] [place] [address] Care Team Providers Care Acid Loader Name Role Phone Unavailable Primary Care Provider Unavailabl e Encounter Details Date Type Department Care Team (Late st Contact Info) Description 11/30/2018 Transcribed Document [facility] [place] Family Medicine [address] [place] [address] ProviderErika MD [address] [place] [address] Social History Tobacco Use Types [...] 2 Tab, Oral, BID saliva substitutes, 1 [place], Buccal, Q2H, PRN Senokot, 17.2 mg= 2 Tab, Oral, BID Synthroid, 50 mcg= 2.5 mL, IV Push, Q48H Zofran, 4 mg= 2 mL, IV Push, Q4H, PRN Electronically signed by Christina Saini Conversion Inspecting And Testing Lead Hand Cerner at 12/08/2022 12:29 PM CDT documented in this encounter Plan of Treatment Not on file documented as of this encounter Visit Diagnoses Not on filedocumented in this encounter
--- OUTSIDE RECORDS SUMMARY | 2025-08-22 10:03 | XMS_ITS | Encounter Summary ---
Author Organization [employer] ([place], [place], [place], [place], [place]) Address [address] [place] [address] Care Team Providers Care Draw Hand Name Role Phone Unavailable Primary Care Provider Unavailabl e Encounter Details Date Type Department Care Team (Late st Contact Info) Description 11/16/2018 Transcribed Document [facility] [place] [facility] [place] [address] ProviderErika MD [address] [place] [address] Social History Tobacco Use Types [...] PROCEDURE: 1. Left radial arterial line. 2. [place]-Jovanna catheter. SURGEON: Porfirio Gaxiola IV, MD Procedure [...] introducer was applied over guidewire, then a [place]-Jovanna catheter was advanced down MAC introducer to [...]
--- OUTSIDE RECORDS SUMMARY | 2025-08-22 10:03 | XMS_ITS | Encounter Summary ---
Author Organization [employer] ([place], [place], [place], [place], [place]) Address [address] [place] [address] Care Team Providers Care Drywall Installer Name Role Phone Unavailable Primary Care Provider Unavailabl e Encounter Details Date Type Department Care Team (Late st Contact Info) Description 11/21/2018 Transcribed Document [facility] [place] Family Medicine [address] [place] [address] ProviderErika MD [address] [place] [address] Social History Tobacco Use Types [...] 9:37 EDT by José Miguel Tran, [facility] Phone Call for Consults Consult Phone Call/Page Attempt : Other: Nurse spoke to Dr. Amaro. José Miguel Tran [facility] - 11/21/2018 9:40 EDT documented in this encounter Plan of Treatment Not on file documented as of this encounter Visit Diagnoses Not on filedocumented in this encounter
--- OUTSIDE RECORDS SUMMARY | 2025-08-22 10:04 | XMS_ITS | Encounter Summary ---
Author Organization [employer] ([place], [place], [place], [place], [place]) Address [address] [place] [address] Care Team Providers Care Joint Maker Machine Name Role Phone Unavailable Primary Care Provider Unavailabl e Encounter Details Date Type Department Care Team (Late st Contact Info) Description 11/27/2018 Transcribed Document [facility] [place] Family Medicine [address] [place] [address] ProviderErika MD [address] [place] [address] Social History Tobacco Use Types [...]
--- OUTSIDE RECORDS SUMMARY | 2025-08-22 10:04 | XMS_ITS | Encounter Summary ---
Author Organization [employer] ([place], [place], [place], [place], [place]) Address [address] [place] [address] Care Team Providers Care Batch Roller Operator Name Role Phone Unavailable Primary Care Provider Unavailabl e Encounter Details Date Type Department Care Team (Late st Contact Info) Description 11/05/2018 Transcribed Document [facility] [place] Family Medicine [address] [place] [address] ProviderErika MD [address] [place] [address] Social History Tobacco Use Types [...] Jose MD - 11/05/2018 12:48 PM CDT [address] [place] [address] Patient Copy Patient Information: Name: DOTTIE VILLASENOR Current Date: 11/05/2018 12:48:54 : 1940 Patient Address: [address] [place] [id number] Patient Attending Physician: LEYLA ARMENDARIZ MD-CAR Primary Care Provider: DEMETRICE ARMIJO NP-JORGE Primary Care Provider Discharge Diagnosis: Weight on Admission: 170 lb, 0 oz Comment: Follow-up Instructions: With: Address: When: JULIO CESAR GAXIOLA [address] [place] [address], [address] [place] [phone] Business (1) 1:30 PM Comments: Follow up with Dr. Gaxiola , surgeon, October at 1:30 pm With: Address: When: J[address]IO CES[address] [place] [address] Qubrit (1) 1:15 PM Comments: Follow up with [...] you are awake and alert. ??? Take aeue-vyk-udbebuz and prescription medicines only as told by [...] 05/31/2014 Document Revised: 01/12/2017 Document Reviewed: 11/29/2016 [employer] Patient Education ? 2017 [employer] Radial Site Care Introduction Refer to this [...] 02/26/2006 Document Revised: 01/15/2017 Document Reviewed: 01/11/2014 [employer] Patient Education ? 2017 [employer] CIGARETTE SMOKING: The facts are clear, cigarette smoking will shorten your life. Smoking can cause many illnesses along the way. As a healthcare provider, we recommend that you stop smoking. Assistance with quitting is available by contacting 6-690-NNJI-NOW. This is a free resource providing counseling, [...] Be sure to sign up for the [employer] patient portal, which gives you 16/03 access to your medical information ??? including these discharge instructions ??? using your computer, smartphone, or tablet. Just go to [employer] to get started. Questions? Call . [facility] would like to thank you for allowing us to assist you with your healthcare needs. HAMILTON Jarvis ROBERT H, (or farm loan representative) have received the above patient education materials/instructions and have verbalized understanding: Patient Signature _ Date/Time Patient Registered Nurse Post Partum Signature (if needed) Date/Time Clinician/Hospital Registered Nurse Post Partum Signature (if needed) Date/Time Electronically signed by Christina Saini Conversion Nuclear Medicine Pet Ct Technologist Cerner at 12/08/2022 12:14 PM CDT documented in this encounter Plan of Treatment Not on file documented as of this encounter Visit Diagnoses Not on filedocumented in this encounter
--- OUTSIDE RECORDS SUMMARY | 2025-08-22 10:04 | XMS_ITS | Data Portability ---
Author Organization [facility] XIMENA [facility] [place]OS[place] Address [address] [place] [address] Assessment Encounter Date Assessment Date Assessment LastModified by Organization Details LastModified Time 07/01/2023 07/01/2023 PREOPERATIVE DIAGNOSIS: Bladder calculus, 13 mm. POSTOPERATIVE DIAGNOSIS: Bladder calculus, 13 mm with BPH. PROCEDURE: Cystolitholapaxy with dilation of distal urethra. 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 SURGEON: Cong Villasenor MD ANESTHESIA: General. DRAINS: 18[place] urethral Michele catheter. INDICATIONS: Patient with previous [...] prepped and draped in normal fashion. A 22-[place] Citizen cystoscopy sheath was introduced. Pendulous urethra revealed some difficulty introducing at the meatus. I then used the [place] sounds to dilate the distal urethra up to 24-[place] Citizen. I then easily advanced down the urethra. [...] Lab urinalysis , dipstick, auto 2018 019 [facility], [address], [address] [place] [address], [address], 9 08:09:21 urinalysis , dipstick, auto 2018 019 [facility], [address], [address], [address], 9 14:02:35 Referral None recorded. Procedures None recorded. Surgeries None recorded. Imaging None recorded. Medication Orders trospium ER 60 mg capsule,ex tended release 24 hr 2022 023 [facility] [address] [place], [address], 3 14:33:52 alfuzosin ER 10 mg tablet,ext ended release 24 hr 2018 019 [facility] [address] [place], [address], 9 15:32:14 Patient TargetsNo targets recorded. Patient Instructions Encounter Date Encounter Id Patient Instructions Last Modified By Organization Details Last Modified Time 05/16/2019 [id number] At this point given the patient's comorbid [...] weeks. [email or web address] Not available 05/16/2019 14:03:13 06/27/2019 [id number] continue medical therapy [email or web address] Not available 06/29/2019 08:09:20 Reason for Referral None Reported. Results Created Date Observation Date Name Description Value Unit Range Abnormal Flag Note LastModifiedBy Organization Detail LastModifiedTime 06/27/2006/27/2019 urina lysis , dipst ick, auto Unknown Analyte Yellow Not Available [facility] With [address] [place] [address], [address], 06/27/2019 15:52:46 06/27/2006/27/2019 urina lysis , dipst ick, auto Unknown Analyte Clear Not Available [facility] With [address] [place] [address], [address], 06/27/2019 15:52:46 06/27/20 19 06/27/2019 urina lysis , dipst ick, auto Unknown Analyte 1.010 Not Available [facility] With [address] [place] [address], [address], 06/27/2019 15:52:46 06/27/2006/27/2019 urina lysis , dipst ick, auto Unknown Analyte 1.003 - 1.035 Not Available [facility] With [address] [place] [address], [address], 06/27/2019 15:52:46 06/27/2006/27/2019 urina lysis , dipst ick, auto Unknown Analyte 7.0 Not Available [facility] With [address] [place] [address], [address], 06/27/2019 15:52:46 06/27/20 19 06/27/2019 urina lysis , dipst ick, auto Unknown Analyte 5.0 - 8.0 Not Available [facility] [place] [facility] [place] [address], [place], [address], 06/27/2019 15:52:46 06/27/20 19 06/27/2019 urina lysis , dipst ick, auto Unknown Analyte Negati ve Not Available [facility] [place] [facility] [place] [address], [place], [address], 06/27/2019 15:52:46 06/27/2006/27/2019 urina lysis , dipst ick, auto Unknown Analyte Negati ve Not Available [facility] [place] [facility] [place] [address], [place], [address], 06/27/2019 15:52:46 06/27/20 19 06/27/2019 urina lysis , dipst ick, auto Unknown Analyte Negati ve Not Available [facility] [place] [facility] [place] [address], [place], [address], 06/27/2019 15:52:46 06/27/2006/27/2019 urina lysis , dipst ick, auto Unknown Analyte Negati ve Not Available [facility] [place] [facility] [address], [place], [address], 06/27/2019 15:52:46 06/27/20 19 06/27/2019 urina lysis , dipst ick, auto Unknown Analyte Negtiv e Not Available [facility] [place] [facility] [place] [address], [place], [address], 06/27/2019 15:52:46 06/27/20 19 06/27/2019 urina lysis , dipst ick, auto Unknown Analyte Negati ve - Trace Not Available [facility] [place] [facility] [place] [address], [place], [address], 06/27/2019 15:52:46 06/27/20 19 06/27/2019 urina lysis , dipst ick, auto Unknown Analyte Normal Not Available [facility] [place] [facility] [place] [address], [place], [address], 06/27/2019 15:52:46 06/27/20 19 06/27/2019 urina lysis , dipst ick, auto Unknown Analyte Normal Not Available [facility] [place] [facility] [place] [address], [place], [address], 06/27/2019 15:52:46 06/27/20 19 06/27/2019 urina lysis , dipst ick, auto Unknown Analyte Negati ve Not Available [facility] [place] [facility] [place] [address], [place], [address], 06/27/2019 15:52:46 06/27/20 19 06/27/2019 urina lysis , dipst ick, auto Unknown Analyte Negati ve Not Available [facility] [place] [facility] [address], [place], [address], 06/27/2019 15:52:46 06/27/20 19 06/27/2019 urina lysis , dipst ick, auto Unknown Analyte Normal Not Available [facility] [place] [address], [place], [address], 06/27/2019 15:52:46 06/27/20 19 06/27/2019 urina lysis , dipst ick, auto Unknown Analyte Normal - 1mg/dl Not Available [facility] [place] [facility] [place] [address], [place], [address], 06/27/2019 15:52:46 06/27/2006/27/2019 urina lysis , dipst ick, auto Unknown Analyte Negati ve Not Available [facility] [place] [facility] [place] [address] [facility] [address], [place], [address], 06/27/2019 15:52:46 06/27/2006/27/2019 urina lysis , dipst ick, auto Unknown Analyte Negati ve Not Available [facility] [place] [facility] [place] [address], [place], [address], 06/27/2019 15:52:46 06/27/20 19 06/27/2019 urina lysis , dipst ick, auto Unknown Analyte Negati ve Not Available [facility] [place] [facility] With [address], [place], [address], 06/27/2019 15:52:46 06/27/2006/27/2019 urina lysis , dipst ick, auto Unknown Analyte Negati ve Not Available [facility] [place] [facility] [place] [address] [facility] [address], [place], [address], 06/27/2019 15:52:46 06/27/20 19 06/27/2019 urina lysis , dipst ick, auto Unknown Analyte Clean Catch Not Available [facility] [place] [facility] With [address], [place], [address], 06/27/2019 15:52:46 06/27/20 19 06/27/2019 urina lysis , dipst ick, auto Unknown Analyte Automa jamshid Not Available [facility] [place] [facility] [place] [address] [facility] [address], [place], [address], 06/27/2019 15:52:46 05/16/20 19 05/16/2019 urina lysis , dipst ick, auto Unknown Analyte Yellow Not Available [facility] With [address] [facility], [place], [address], 05/16/2019 13:23:16 05/16/20 19 05/16/2019 urina lysis , dipst ick, auto Unknown Analyte Clear Not Available [facility] [place] [address] [facility] [address], [place], [address], 05/16/2019 13:23:16 05/16/20 19 05/16/2019 urina lysis , dipst ick, auto Unknown Analyte 1.020 Not Available [facility] With [address] [place] [address], [address], 05/16/2019 13:23:16 05/16/2005/16/2019 urina lysis , dipst ick, auto Unknown Analyte 1.003 - 1.035 Not Available [facility] [place] [facility] With [address] [facility], [place], [address], 05/16/2019 13:23:16 05/16/20 19 05/16/2019 urina lysis , dipst ick, auto Unknown Analyte 5.0 Not Available [facility] With [address] [place] [address], [place], [address], 05/16/2019 13:23:16 05/16/20 19 05/16/2019 urina lysis , dipst ick, auto Unknown Analyte 5.0 - 8.0 Not Available [facility] [place] [facility] [address], [place], [address], 05/16/2019 13:23:16 05/16/20 19 05/16/2019 urina lysis , dipst ick, auto Unknown Analyte Negati ve Not Available [facility] [place] [facility] [address], [place], [address], 05/16/2019 13:23:16 05/16/20 19 05/16/2019 urina lysis , dipst ick, auto Unknown Analyte Negati ve Not Available [facility] [place] [facility] [place] [address], [place], [address], 05/16/2019 13:23:16 05/16/20 19 05/16/2019 urina lysis , dipst ick, auto Unknown Analyte Negati ve Not Available [facility] [place] [facility] [place] [address] [facility] [address], [place], [address], 05/16/2019 13:23:16 05/16/20 19 05/16/2019 urina lysis , dipst ick, auto Unknown Analyte Negati ve Not Available [facility] [place] [facility] [address], [place], [address], 05/16/2019 13:23:16 05/16/20 19 05/16/2019 urina lysis , dipst ick, auto Unknown Analyte Negtiv e Not Available [facility] [place] [facility] [place] [address], [place], [address], 05/16/2019 13:23:16 05/16/20 19 05/16/2019 urina lysis , dipst ick, auto Unknown Analyte Negati ve - Trace Not Available [facility] [place] [address], [place], [address], 05/16/2019 13:23:16 05/16/20 19 05/16/2019 urina lysis , dipst ick, auto Unknown Analyte Normal Not Available [facility] [place] [address], [place], [address], 05/16/2019 13:23:16 05/16/20 19 05/16/2019 urina lysis , dipst ick, auto Unknown Analyte Normal Not Available [facility] [place] [address], [place], [address], 05/16/2019 13:23:16 05/16/20 19 05/16/2019 urina lysis , dipst ick, auto Unknown Analyte 15 mg/dl (Sm) Not Available [facility] [address], [place], [address], 05/16/2019 13:23:16 05/16/20 19 05/16/2019 urina lysis , dipst ick, auto Unknown Analyte Negati ve Not Available [facility] [address], [place], [address], 05/16/2019 13:23:16 05/16/20 19 05/16/2019 urina lysis , dipst ick, auto Unknown Analyte Normal Not Available [facility] [address], [place], [address], 05/16/2019 13:23:16 05/16/20 19 05/16/2019 urina lysis , dipst ick, auto Unknown Analyte Normal - 1mg/dl Not Available [facility] [place] [facility] [address], [place], [address], 05/16/2019 13:23:16 05/16/20 19 05/16/2019 urina lysis , dipst ick, auto Unknown Analyte Negati ve Not Available [facility] [place] [facility] [address], [place], [address], 05/16/2019 13:23:16 05/16/20 19 05/16/2019 urina lysis , dipst ick, auto Unknown Analyte Negati ve Not Available [facility] [place] [facility] [address], [place], [address], 05/16/2019 13:23:16 05/16/20 19 05/16/2019 urina lysis , dipst ick, auto Unknown Analyte Negati ve Not Available [facility] [place] [facility] [address], [place], [address], 05/16/2019 13:23:16 05/16/20 19 05/16/2019 urina lysis , dipst ick, auto Unknown Analyte Negati ve Not Available [facility] [place] [facility] [address], [place], [address], 05/16/2019 13:23:16 05/16/20 19 05/16/2019 urina lysis , dipst ick, auto Unknown Analyte Clean Catch Not Available [facility] [place] [facility] [address], [place], [address], 05/16/2019 13:23:16 05/16/20 19 05/16/2019 urina lysis , dipst ick, auto Unknown Analyte Automa jamshid Not Available [facility] [place] [facility] [address], [place], [address], 05/16/2019 13:23:16 07/01/20 23 07/07/2023 STONE GERMAINE SIS composition SEE BELOW normal Calci um Oxala te Dihyd rate (Wedd ellit e) 15% Calci um Oxala te Monoh ydrat e (Whew ellit e) 70% Carbo stephany Apati te (Dahl lite) 15% See Note 1 Not Available [facility] [address] [place] [address], [address], 07/07/2023 18:14:54 07/01/2007/07/2023 STONE GERMAINE SIS weight [...] for clini long purpo ses. Not Available [facility] [address] [place] [address], [address], 07/07/2023 18:14:54 Result Notes None recorded. Problems Name Problem SNOMED Code Status Onset Date Resolution Date Notes Provider Name and Address Organization Details Recorded Time Lower urinary tract symptoms due to benign prostatic hypertrophy 6653266642751 1 Active 2018 LEYLA SHAH JR, MD [address] [place] [address], [address] , [facility] 9 11:50:21 Increased frequency of urination 411372564 Active 2018 LEYLA SHAH JR, MD [address] [place] [address], [address], [facility] 9 20:29:31 Nocturia 729514631 Active 2018 LEYLA SHAH JR, MD [address] [place] [address], [address], [facility] 9 20:29:35 Problem Notes None recorded. Procedures Surgical History Date Name Laterality Status Provider Name and Address Organization Details Recorded Time 03/02/20 19 Post Void Residual; Ultrasound completed Rima Ivory [facility] 03/02/2019 11:46:22 04/16/20 17 MEATOTOMY, EXCEPT IN INFANT (SURG) completed CONG VILLASENOR MD [address] [place] [address], [address], [facility] 04/29/2017 10:19:09 Heart Surgery completed Deseriee [place] [facility] 03/02/2019 11:35:52 cholecystectomy completed [facility] 05/19/2023 16:19:30 Hernia Repair completed [facility] 05/19/2023 16:19:41 Prostate Surgery completed [facility] 05/19/2023 16:19:58 Urinary Bladder completed [facility] 05/19/2023 16:20:09 Imaging Results None recorded. [...] 2022 active son requests Rx changed to [facility] as pt will not be returning to [facility], so Rx called to new pharmacy [...] Updated DateTime 05/16/2019 185.42 cm 21.1 kg/m2 92989.78 [facility] 05/16/2019 13:22:42 Date Recorded Body height Systolic And Diastolic Provider Name and Address Organization Details Last Updated DateTime 06/27/2019 185.42 cm 143/77 mm[Hg] [facility] 06/27/2019 15:52:00 Date Recorded Body height Body mass index (BMI) Body weight Provider Name and Address Organization Details Last Updated DateTime 07/08/2023 182.88 cm 29.8 kg/m2 67866.32 g John Emanuel [facility] 07/08/2023 13:21:37 Social History Question Answer Notes LastModified by Organizat ion Details LastModified Time Tobacco Smoking Status Never Smoker [facility] 03/02/2019 11:35:35 Marital Status Informatio n not available 03/02/2019 What Was The Date Of Your Most Recent Tobacco Screening? 03/02/2019 Information not available 10/11/2019 What Is Your Relationship Status? [email or web address] Information not available 05/19/2023 Has Tobacco Cessation Counseling Been Provided? No [email or web address] Information not available 05/19/2023 Sex: Unknown Functional Status Question Answer Note LastModified by Organizat ion Details LastModified Time Do you use any illicit or recreational drugs? No [email or web address] Information not available 05/19/2023 Do you or have you ever used any other forms of tobacco or nicotine? No [email or web address] Information not available 05/19/2023 What is your level of alcohol consumption? 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 Family History Relationship Description Onset Age of this Age Resolved Age Notes LastModified by Organization Details LastModified Time Unspecified Relation Family history of malignant neoplasm colon cancer [email or web address] Not available 05/19/2023 16:18:41 Unspecified Relation Kidney stone paulina Not available 05/2019 11:35:27 Medical History Condition Response Cardiac Disease Y Other Y Arthritis Y High Cholesterol Y High PSA Y Heart Attack ([place]) Y Cancer Y Urinary Tract Infection Y Stroke Y Hypertension Y Kidney Disease Y Past Encounters Encounter ID Performer Location Encounter Start Date Encounter Closed Date Diagnosis/Indication Diagnosis SNOMED-CT Code Diagnosis ICD10 Code Diagnosis IMO Codes Diagnosis Note [id number] LEYLA SHAH JR, MD [address] [place] [address] 03/02/2019 11:00:32 03/07/2019 10:05:38 Lower urinary tract symptoms due to benign prostatic hypertrophy 6164160540 9101 N40.1 Increased frequency of urination 613009380 R35.0 Nocturia 337594195 R35.1 [id number] LEYLA SHAH JR, MD [facility] [address] [facility] [address] [place] [id number] 05/16/2019 13:05:53 05/18/2019 08:09:55 Lower urinary tract symptoms due to benign prostatic hypertrophy 1820741136 9101 N40.1 [id number] LEYLA SHAH JR, MD [facility] [address] [facility] [address] [place] [id number] 06/27/2019 14:58:19 06/30/2019 11:19:02 Lower urinary tract symptoms due to benign prostatic hypertrophy 2432810209 9101 N40.1 Nocturia 723152626 R35.1 [id number] MD JONES FONTANEZ [facility] [address] [place] [address] 05/19/2023 14:49:48 05/19/2023 16:47:49 Urinary bladder stone 27028134 N21.0 follow upp 2 months , earlier if necessary [id number] CONG VILLASENOR MD SURGERY SCHEDULE [address] [place] [address] 07/01/2023 10:05:11 07/01/2023 10:05:30 [id number] MD JONES FONTANEZ [facility] [address] [place] [address] 07/08/2023 13:06:58 07/08/2023 14:09:02 Urinary bladder stone 92699577 N21.0 follow upp 2 months , earlier if necessary, he will complete his antibiotic s Increased frequency of urination 069558860 R35.0 as above Health Concerns Section Related Observation LastModified by Organization Detai ls LastModified Time None Recorded Concern Status LastModified by Organization Details LastModified Time None Recorded Advance Directives Directive None Recorded Payers Insurance Date Sequence Insurance Name Policy Number Policy Mullen Covered Member ID Mullen Member ID Guarantor Name 05/19/2023 1 [place] Jorge Villasenor [id number] Jorge Pickering Fernando 09/06/2023 1 [employer] (MEDICARE REPLACEMENT/A DVANTAGE - PPO) Jorge Pickering Fernando [id number] Jorge Pickering Fernando Notes Date Note Type [...] of 9.3. LEYLA SHAH JR, MD [address] [place], [address], [facility] 05/16/2019 14:03:31 06/27/2019 text/html [...] is somewhat improved. LEYLA SHAH JR, MD [address] [place] [address], [address], [facility] 06/29/2019 08:09:36 05/19/2023 text/html [...] it. HE had a Resume treatment in [place] about 3 years ago[address] I reviewed ct scan disc for [facility] CONG VILLASENOR MD [address] [place] [address] [place], [address], [facility] 05/21/2023 11:32:44 07/08/2023 text/html [...] had recent cystoscopy. CONG VILLASENOR MD [address] [place], [address], [facility] 07/08/2023 14:34:03
--- OUTSIDE RECORDS SUMMARY | 2025-08-22 10:04 | XMS_ITS | Encounter Summary ---
Author Organization [employer] ([place], [place], [place], [place], [place]) Address [address] [place] [address] Care Team Providers Care Refrigeration Specialist Name Role Phone Unavailable Primary Care Provider Unavailabl e Encounter Details Date Type Department Care Team (Late st Contact Info) Description 11/26/2018 Transcribed Document [facility] Family Medicine [address] [place] [address] ProviderErika MD [address] [place] [address] Social History Tobacco Use Types [...] up with [facility] today regarding possible admission - plan is [...] 11:21 EDT Care Management Note Report : ODALYS FAULKNER, Rn-Cat Tender - 11/24/18 13:22:19 11/24/18 Andra from [facility] called to let me know they started a precert on this pt. CF ODALYS FAULKNER, Rn-Cat Tender - 11/22/18 13:56:32 11/22/18 Pt has had a cva. Spoke to his Connie and son Sumeet at the bedside. Pt is lfacid on the left side. Discussed the need for STR and they decided on [facility]. Sent pt info via [employer] to [facility]. CF Documentation Status Complete : Yes ANGELA NAIR, Test Administrator - 11/26/2018 11:16 EDT Electronically signed by Parveen [facility] Conversion Carton Repairer Cerner at 12/08/2022 12:12 PM CDT documented in this encounter Plan of Treatment Not on file documented as of this encounter Visit Diagnoses Not on filedocumented in this encounter
--- OUTSIDE RECORDS SUMMARY | 2025-08-22 10:04 | XMS_ITS | Encounter Summary ---
Author Organization [employer] ([place], [place], [place], [place], [place]) Address [address] [place] [address] Care Team Providers Care Associate Professor Of Medicine Name Role Phone Unavailable Primary Care Provider Unavailabl e Encounter Details Date Type Department Care Team (Late st Contact Info) Description 11/26/2018 Transcribed Document [facility] [place] [address] [place] [address] ProviderErika MD [address] [place] [address] Social History Tobacco Use Types Packs/Day Years Used Date Smoking Tobacco: Never Assessed Sex and Gender Information Value Date Recorded Sex Assigned at Not on file Legal Sex Male 5:03 PM CDT Gender Identity Not on file Sexual Orientation Not on file documented as of this encounter Miscellaneous Notes * Cerner Conversion Note - Erika Jose MD - 11/26/2018 7:00 AM CDT MBSS/VFSS Evaluation Entered On: 11/26/2018 9:23 EDT Performed On: 11/26/2018 9:15 EDT by JOSSUE RODRÍGUEZ ANNUAL GIVING OFFICER General Information Visit Type, ANNUAL GIVING OFFICER : Re-Evaluation Patient Orders : ANNUAL GIVING OFFICER Fxoliver Limitation Documentation x 1 -111 Start: 11/25/18 10:29:25 EDT - SYSTEM, SYSTEM Speech Language Pathology Modified Barium Swallow Study - Start: 11/26/18 7:00:00 EDT, Routine, For Other (see special instructions), Dysphagia -111 GISSEL ZHANG PA ANNUAL GIVING OFFICER Fxnl Limitation Documentation - Start: 11/20/18 9:37:47 EDT, Continuous Order -111 SYSTEM, SYSTEM Speech Language Pathology Additional Tx - Start: 11/20/18 9:36:00 EDT, For Dysphagia, Continuous Order -111 Admission Date : Admission Date/Time: 11/16/18 06:45:00 Medical Chart Reviewed, ANNUAL GIVING OFFICER : Yes Personal Devices : Personal Devices No Devices Recorded Assistive Devices : Assistive Devices No Devices Recorded Active Diagnoses : 11/23/2018 00:00 Cerebral infarction, unspecified 11/17/2018 00:00 Atherosclerotic heart disease of [place] coronary artery without angina pectoris 11/17/2018 00:00 Essential (primary) hypertension 11/17/2018 00:00 Hypothyroidism, unspecified 11/17/2018 00:00 Nonrheumatic aortic (valve) insufficiency 11/17/2018 00:00 Restless legs syndrome 11/17/2018 00:00 Thoracic aortic aneurysm, without rupture 11/17/2018 00:00 Thrombocytopenia, unspecified 11/16/2018 00:00 Atherosclerotic heart disease of [place] coronary artery without angina pectoris 11/16/2018 00:00 Nonrheumatic aortic (valve) insufficiency 11/16/2018 00:00 Thoracic aortic aneurysm, without rupture Therapy Diagnosis, ANNUAL GIVING OFFICER : functional oropharyngeal skills Previous Speech/Language Evaluations : N/A Previous Swallow Precautions : Bedside 11/20 recommended instrumental prior to initiating PO diet, FEES recommended reg/nectar. Pt has participated in tx and is ready for a repeat study Previous Cognitive Evaluations : this admit Diet/Intake Prior to Current Admission : Regular/thin Diet/Intake During Current Admission : reg/thin following MBS Intubation Comment, ANNUAL GIVING OFFICER : 11/16-11/17 Vital Signs RTF : Vitals [...] 9:15 EDT General Status Patient Received Status, ANNUAL GIVING OFFICER : Up in chair Patient Left Status, ANNUAL GIVING OFFICER : Up in chair JOSSUE RODRÍGUEZ SLP - 11/26/2018 9:15 EDT Pain Assessment Pain Scaled Used : FACES Pain Score Pre-Intervention : 2 JOSSUE RODRÍGUEZ, ERIC - 11/26/2018 9:15 EDT Image 1 - [...] Consistencies Trialed MB/VFSS : Thin by straw, [place] by straw, Pudding JOSSUE RODRÍGUEZ SLP - 11/26/2018 9:15 EDT Swallow Impressions Impressions, MBSS/VFSS : Functional swallow for oral intake JOSSUE RODRÍGUEZ SLP - 11/26/2018 9:15 EDT 8 Point Penetration/Aspiration Grid Thin by Straw : 1 [place] by Straw : 1 Pudding : 1 [...] Discussed briefly with CTS PA. JOSSUE RODRÍGUEZ, ERIC - 11/26/2018 9:15 EDT Swallow Recommendations Recommended Diet Type, SwRec : Regular Recommended Liquid Diet, SwRec : Thin Swallow Position, SwRec : Upright 90 degrees Supervision Level w/Meals, SwRec : Independent, modified Recommended Med Present, SwRec : As per nursing JOSSUE RODRÍGUEZ SLP - 11/26/2018 9:15 EDT Therapy Indication Assessment ANNUAL GIVING OFFICER Indicated : No ANNUAL GIVING OFFICER Not Indicated : At prior level of function JOSSUE RODRÍGUEZ SLP - 11/26/2018 9:15 EDT Swallow Plan/Goals Swallow LTG Grid ANNUAL GIVING OFFICER Clinical Psychology Teacher Goal #1 ANNUAL GIVING OFFICER Clinical Psychology Teacher Goal #2 Swallow LTG : Establish safe [...] JOSSUE RODRÍGUEZ SLP - 11/26/2018 9:15 EDT ANNUAL GIVING OFFICER Education Assessment Grid 1 Aspiration : Needs further teaching Diet Recommendation : Needs further teaching JOSSUE RODRÍGUEZ SLP - 11/26/2018 9:[address] [facility] ANNUAL GIVING OFFICER Charges Modified Barium Swallow : 1 JOSSUE RODRÍGUEZ SLP - 11/26/2018 9:15 EDT documented in this encounter Plan of Treatment Not on file documented as of this encounter Visit Diagnoses Not on filedocumented in this encounter
--- OUTSIDE RECORDS SUMMARY | 2025-08-22 10:04 | XMS_ITS | Encounter Summary ---
Author Organization [employer] ([place], [place], [place], [place], [place]) Address [address] [place] [address] Care Team Providers Care Computerized Machine Fabric Cutter Name Role Phone Unavailable Primary Care Provider Unavailabl e Encounter Details Date Type Department Care Team (Late st Contact Info) Description 11/05/2018 Transcribed Document [facility] [place] Family Medicine [address] [place] [address] ProviderErika MD [address] [place] [address] Social History Tobacco Use [...] 11/05/2018 12:46 EDT Electronically signed by Parveen [facility] Conversion Lumber Planer Cerner at 12/08/2022 12:12 PM CDT documented in this encounter Plan of Treatment Not on file documented as of this encounter Visit Diagnoses Not on filedocumented in this encounter
--- OUTSIDE RECORDS SUMMARY | 2025-08-22 10:04 | XMS_ITS | Encounter Summary ---
Author Organization [employer] ([place], [place], [place], [place], [place]) Address [address] [place] [address] Care Team Providers Care Log Chipper Operator Name Role Phone Unavailable Primary Care Provider Unavailabl e Encounter Details Date Type Department Care Team (Late st Contact Info) Description 11/05/2018 Transcribed Document [facility] [place] [address] [place] [address] ProviderErika MD [address] [place] [address] Social History Tobacco Use Types [...] Jose MD - 11/05/2018 12:46 PM CDT Nursing Discharge Summary Entered On: 11/05/2018 12:46 EDT Performed On: 11/05/2018 12:46 EDT by SRIRAM PATEL press feeder broomcorn Documentation Discharge Date/Time : 11/05/2018 13:15 EDT [...] 11/05/2018 12:46 EDT Electronically signed by Parveen [facility] Conversion Educational Psychology Teacher Cerner at 12/08/2022 12:20 PM CDT documented in this encounter Plan of Treatment Not on file documented as of this encounter Visit Diagnoses Not on filedocumented in this encounter
--- OUTSIDE RECORDS SUMMARY | 2025-08-22 10:04 | XMS_ITS | Encounter Summary ---
Author Organization [employer] ([place], [place], [place], [place], [place]) Address [address] [place] [address] Care Team Providers Care Clerk Of Works Name Role Phone Unavailable Primary Care Provider Unavailabl e Encounter Details Date Type Department Care Team (Late st Contact Info) Description 11/05/2018 Transcribed Document [facility] Cardiology [address] [place] [address] Lc Armendariz MD [address] [facility] [address] [place] [address] Social History Tobacco Use Types Packs/Day Years Used Date Smoking Tobacco: Never Assessed Sex and Gender Information Value Date Recorded Sex Assigned at Not on file Legal Sex Male 5:03 PM CDT Gender Identity Not on file Sexual Orientation Not on file documented as of this encounter Miscellaneous Notes * Cerner Conversion Note - Lc Amrendariz MD - 11/05/2018 9:00 AM EDT Patient: DOTTIE VILLASENOR Age: 78 years Sex: Male : 1940 Associated Diagnoses: None Author: LC ARMENDARIZ MD-CAR Basic Information PCP: Sanjuana Valdez Cardiology; Porfirio [...] All Problems Prostate stricture / SNOMED CT 35697122 / Confirmed HTN - Hypertension / SNOMED CT 7370489877 / Confirmed Hypothyroidism / SNOMED CT 03850059 / Confirmed Aneurysm / SNOMED CT 3093446828 / Confirmed Disorder of prostate / SNOMED CT 01871452 / Confirmed Thyroid disease / SNOMED CT 936002928 / Confirmed Restless legs syndrome / SNOMED CT 86919278 / Confirmed Cancer of skin of face / SNOMED CT 6876414854 / Confirmed At risk for sleep apnea / IMO 84035017 / Confirmed Resolved: Bladder stone / SNOMED CT 275506906 Histories No education data available. Social & Psychosocial Habits Alcohol 04/16/2017 Alcohol Use History, Social Habits No Alcohol Use in Last Twelve Months No Substance Abuse 04/16/2017 Recreational Drug Use History No Recreational Drug Use Last 12 Months No Tobacco 04/16/2017 Smoking Status Never smoker Past Medical History: Active HTN - Hypertension (6979021875) Hypothyroidism (89720652) Family History: Entire family history is negative. [...] of motion, Normal strength. Integumentary: Warm, Dry, [place]. Neurologic: Alert, Oriented. Psychiatric: Cooperative. Review / [...]
--- OUTSIDE RECORDS SUMMARY | 2025-08-22 10:04 | XMS_ITS | Encounter Summary ---
Author Organization [employer] ([place], [place], [place], [place], [place]) Address [address] [place] [address] Care Team Providers Care Pony Cylinder Press Operator Name Role Phone Unavailable Primary Care Provider Unavailabl e Encounter Details Date Type Department Care Team (Late st Contact Info) Description 11/27/2018 Transcribed Document [facility] [place] Family Medicine [address] [place] [address] ProviderErika MD [address] [place], [place] [id number] Social History Tobacco Use Types Packs/Day Years Used Date Smoking Tobacco: Never Assessed Sex and Gender Information Value Date Recorded Sex Assigned at Not on file Legal Sex Male 5:03 PM CDT Gender Identity Not on file Sexual Orientation Not on file documented as of this encounter Miscellaneous Notes * Cerner Conversion Note - Historical ProviderMD - 11/27/2018 2:00 AM CDT Drum Sander Details Entered On: 11/27/2018 3:00 EDT Performed [...]
--- OUTSIDE RECORDS SUMMARY | 2025-08-22 10:04 | XMS_ITS | Encounter Summary ---
Author Organization [employer] ([place], [place], [place], [place], [place]) Address [address] [place] [address] Care Team Providers Care Nuclear Equipment Test Engineer Name Role Phone Unavailable Primary Care Provider Unavailabl e Encounter Details Date Type Department Care Team (Late st Contact Info) Description 11/27/2018 Transcribed Document [facility] [place] Family Medicine [address] [place] [address] ProviderErika MD [address] [place] [address] Social History Tobacco Use Types Packs/Day Years Used Date Smoking Tobacco: Never Assessed Sex and Gender Information Value Date Recorded Sex Assigned at Not on file Legal Sex Male 5:03 PM CDT Gender Identity Not on file Sexual Orientation Not on file documented as of this encounter Miscellaneous Notes * Cerner Conversion Note - Erika ProviderMD - 11/27/2018 5:00 PM CDT Chart [...]
--- OUTSIDE RECORDS SUMMARY | 2025-08-22 10:04 | XMS_ITS | Encounter Summary ---
Author Organization [employer] ([place], [place], [place], [place], [place]) Address [address] [place] [address] Care Team Providers Care Enterprise Records Analyst Name Role Phone Unavailable Primary Care Provider Unavailabl e Encounter Details Date Type Department Care Team (Late st Contact Info) Description 11/19/2018 Transcribed Document [facility] Cardiology [address] [place] [address] Lc Armendariz MD [address] [facility] [address] [place] [address] Social History Tobacco Use Types Packs/Day Years [...] mg, Oral, At Bedtime saliva substitutes: 1 [place], Buccal, Q2H, PRN: Other (See Comment) sodium [...] of motion, Normal strength. Integumentary: Warm, Dry, [place]. Neurologic: Alert, Oriented. Psychiatric: Cooperative, Appropriate mood & affect. Results Review NOV 19 04:08 138 105 21 / H 184 4.0 28 0.70 \ NOV 19 04:08 \ L 10.0 / H 15.0 L 101 / L 30.3 \ Radiology Results (Last 48 hours) [id number] -- 11/16/2018 06:45 CR Chest 1 Vw [...] dictated by Dr. Niles Escalante.Transcribed by Daniel Hosuton PA-C. Impression and Plan IMPRESSION: CAD post op CABG x 1 (RUSSELL to LAD) Aortic insufficiency with ascending arotic aneurysm S/P Resection and Grafting of Ascending Thoracic Aortic Aneurysm, 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 and Reimplantation of Coronaries, CABG x 1 (RUSSELL>LAD). 3/26/19 Metabolic encephalopathy post operative HTN HLD Hypothyroidism. [...]
--- OUTSIDE RECORDS SUMMARY | 2025-08-22 10:04 | XMS_ITS | Encounter Summary ---
Author Organization [employer] ([place], [place], [place], [place], [place]) Address [address] [place] [address] Care Team Providers Care Stem Setter Name Role Phone Unavailable Primary Care Provider Unavailabl e Encounter Details Date Type Department Care Team (Late st Contact Info) Description 11/05/2018 Transcribed Document [facility] [place] Family Medicine [address] [place] [address] ProviderErika MD [address] [place], [...] you are awake and alert. ??? Take roul-rzr-agkaxys and prescription medicines only as told by [...] 05/31/2014 Document Revised: 01/12/2017 Document Reviewed: 11/29/2016 [employer] Interactive Patient Education ? 2017 [employer] Pulmonary Medicine Radial Site Care Introduction [...] 01/11/2014 [employer] Interactive Patient Education ? 2017 [employer] documented in this encounter Plan of Treatment Not on file documented as of this encounter Visit Diagnoses Not on filedocumented in this encounter
--- OUTSIDE RECORDS SUMMARY | 2025-08-22 10:04 | XMS_ITS | Encounter Summary ---
Author Organization [employer] ([place], [place], [place], [place], [place]) Address [address] [place] [address] Care Team Providers Care Printing Film Stripper Name Role Phone Unavailable Primary Care Provider Unavailabl e Encounter Details Date Type Department Care Team (Late st Contact Info) Description 11/29/2018 Transcribed Document [facility] [place] [address] [place] [address] ProviderErika MD [address] [place] [address] Social History Tobacco Use Types [...] MD Finalized Date/Time: 11/29/18 14:12:35 Pt. Name: HAMILTON DOTTIE Ladan /Sex: 1940 Male Med Rec #: [id number] Physician: JULIO CESAR CARVALHO MD-[facility] Financial #: [id number] Pt. Type: I Room/Bed: 330/1 Admit/Disch: 11/16/18 [...] Endo PreOp Case Times Audit 11/29/18 14:12:33 Gravure Press Operator: ASHLEYSTAPLETON Modifier: ASHLEYSTAPLETON <+> 1 Patient Out of Preop <+> 1 Patient Ready for Surgery Finalized By: Gem Osborne, Rn Document Signatures Signed By: Gem Osborne Rn 11/29/18 14:12 Electronically signed by Parveen [facility] Conversion Transfusion Aide Cerner at 12/08/2022 12:10 PM CDT documented in this encounter Plan of Treatment Not on file documented as of this encounter Visit Diagnoses Not on filedocumented in this encounter
--- OUTSIDE RECORDS SUMMARY | 2025-08-22 10:04 | XMS_ITS | Encounter Summary ---
Author Organization [employer] ([place], [place], [place], [place], [place]) Address [address] [place] [address] Care Team Providers Care Bodywork Therapist Name Role Phone Unavailable Primary Care Provider Unavailabl e Encounter Details Date Type Department Care Team (Late st Contact Info) Description 11/26/2018 Transcribed Document [facility] [place] Family [place] [address] [place] [address] ProviderErika MD [address] [place], [place] [id number] Social History Tobacco Use Types Packs/Day Years [...] 1940 Associated Diagnoses: CAD (coronary artery disease), [place] coronary artery; Thrombocytopenia; Coronary artery disease; [...] swelling - improved today. Integumentary: Warm, Dry, [place], incision is C/D/I. Neurologic: Alert, left sided [...] CM has sent information to [facility] -Transfer to [facility] 11/24/18 -POD#8 -Awaiting transfer to [facility] -Awaiting response from [facility] 11/25/18 -left upper extremity venous doppler - doppler this am positive for LUE DVT - will start coumadin and heparin bridge -awaiting [facility] 11/26/18 -Heparin drip and coumadin for LUE DVT Left arm swelling improved today INR 1.1 today, INR goal 2-3 Possibly transfer to [facility] this weekend EF 55-60% per echo 11/16/18 DVT Prophylaxis: SCDs Diagnosis CAD (coronary artery disease), [place] coronary artery - Admitting, Medical. Thrombocytopenia [...] Medical. Electronically signed by Christina Saini Conversion Drywall Application Supervisor Cerner at 12/08/2022 12:25 PM CDT documented in this encounter Plan of Treatment Not on file documented as of this encounter Visit Diagnoses Not on filedocumented in this encounter
--- OUTSIDE RECORDS SUMMARY | 2025-08-22 10:04 | XMS_ITS | Encounter Summary ---
Author Organization [employer] ([place], [place], [place], [place], [place]) Address [address] [place] [address] Care Team Providers Care Forensic Analyst Name Role Phone Unavailable Primary Care Provider Unavailabl e Encounter Details Date Type Department Care Team (Late st Contact Info) Description 11/19/2018 Transcribed Document [facility] [place] Family Medicine [address] [place] [address] ProviderErika MD [address] [place] [address] Social History Tobacco Use Types [...] TF regimen to add fiber. EST NEEDS: 1310-4800 kcal (25-30kcal/kg), 95g pro (1.2g/kg) 1. Change TF to Jevity 1.5 @ 60 ml/hr + 1 bottle [id number] daily (Provides 2040 kcal; 99 gm pro) Goal: meet est needs 2. Monitor alertness and appropriateness for FISHER CRAB eval Goal: est safe po diet 3. Weigh pt 2x weekly Goal: no sig weight changes High Risk DAVION GREEN RD, LD - 11/19/2018 12:43 EDT documented in this encounter Plan of Treatment Not on file documented as of this encounter Visit Diagnoses Not on filedocumented in this encounter
--- OUTSIDE RECORDS SUMMARY | 2025-08-22 10:04 | XMS_ITS | Encounter Summary ---
Author Organization [employer] ([place], [place], [place], [place], [place]) Address [address] [place] [address] Care Team Providers Care Cobbler Mckay Name Role Phone Unavailable Primary Care Provider Unavailabl e Encounter Details Date Type Department Care Team (Late st Contact Info) Description 11/27/2018 Transcribed Document [facility] [place] [address] [place] [address] ProviderErika MD [address] [place], [place] [phone] Social History Tobacco Use Types Packs/Day Years Used Date Smoking Tobacco: Never Assessed Sex and Gender Information Value Date Recorded Sex Assigned at Not on file Legal Sex Male 5:03 PM CDT Gender Identity Not on file Sexual Orientation Not on file documented as of this encounter Miscellaneous Notes * Cerner Conversion Note - Erika Jose MD - 11/27/2018 4:26 PM CDT Patient: DTOTIE VILLASENOR Age: 78 years Sex: Male : [...] swelling - improved today. Integumentary: Warm, Dry, [place], incision is C/D/I. Neurologic: Alert, Oriented, left sided paralysis. Psychiatric: Cooperative, Appropriate mood & affect. Review / Management Results review: NOV 27 06:12 136 102 21 / 96 4.3 27 0.80 \ NOV 06 06:12 \ L 11.8 / H 11.6 332 / L 35.7 \ Blood Gases (Current Encounter/Past 24 Hours) No Blood Gas Results Found (Past 24 Hours) Coagulation Results (Current Encounter/Past 24 Hours) PT 14.8 Second(s) HI 11/27/2018 07:36 PTT 55.8 Second(s) ID 11/26/2018 11:12 INR 1.4 HI 11/27/2018 07:36 . Impression and Plan Plan: [...] time of discharge- has sent information to [facility] -Transfer to [facility] 11/24/18 -POD#8 -Awaiting transfer to [facility] -Awaiting response from [facility] 11/25/18 -left upper extremity venous doppler - doppler this am positive for LUE DVT - will start coumadin and heparin bridge -awaiting [facility] 11/26/18 -Heparin drip and coumadin for LUE DVT Left arm swelling improved today INR 1.1 today, INR goal 2-3 Possibly transfer to [facility] this weekend 11/27/18: Left arm swelling continues to improve Continues on Coumadin and heparin bridge INR: 1.4 (1.1 yesterday) goal: 2 to 3 [facility] soon,? Tomorrow EF 55-60% per [...]
--- OUTSIDE RECORDS SUMMARY | 2025-08-22 10:04 | XMS_ITS | Encounter Summary ---
Author Organization [employer] ([place], [place], [place], [place], [place]) Address [address] [place] [address] Care Team Providers Care Shoe Stamper Name Role Phone Unavailable Primary Care Provider Unavailabl e Encounter Details Date Type Department Care Team (Late st Contact Info) Description 11/05/2018 Transcribed Document [facility] [place] Family Medicine [address] [place] [address] ProviderErika MD [address] [place] [address] Social History Tobacco Use Types Packs/Day Years Used Date Smoking Tobacco: Never Assessed Sex and Gender Information Value Date Recorded Sex Assigned at Not on file Legal Sex Male 5:03 PM CDT Gender Identity Not on file Sexual Orientation Not on file documented as of this encounter Miscellaneous Notes * Cerner Conversion Note - Erika Jose MD - 11/05/2018 8:49 AM CDT Pre Procedure Adult Entered On: 11/05/2018 8:55 EDT Performed On: 11/05/2018 8:49 EDT by SRIRAM PATEL RN Height and Weight, Clinical Dosing Height Source : Stated Height Entry Format : [place] Height, Feet : 6 ft(Converted to: 183 cm, 72 Inch) Height, Inches : 1 Inch(Converted to: 0 ft 1 Inch, 2.54 cm) Clinical Height : 185.42 cm Weight Source : Standing scale Weight Entry Format : [place] Clinical Dosing Weight : 77.27 kg Weight, Pounds : 170 lb Body Surface Area (BSA) : 2.01 m2 Body Mass Index : 22.5 kg/m2 [place] Body Weight : 79 kg SRIRAM PATEL [...] Any Spiritual/Cultural Needs or Requests : No Mosque Preference : Christian SRIRAM PATEL RN - [...] Obtained From : Patient Primary Language : Bhutanese Preferred Communication Mode : Verbal Communication Barrier : None Objects to Sharing Info w Family : No SRIRAM PATLE RN - 11/05/2018 8:49 EDT Vital Measurements [...] Scale Risk Level : 0-24 Low Risk [place] Fall Interventions : Adequate lighting, Bed in [...] the text rendition version of the form. [place] Coma Kavin Best Motor Response : Obey commands [place] Best Verbal Response : Oriented Kavin Eye Opening Response : Spontaneous [place] Coma Score : 15 SRIRAM PATEL RN - 11/05/2018 8:49 EDT documented in this encounter Plan of Treatment Not on file documented as of this encounter Visit Diagnoses Not on filedocumented in this encounter
--- OUTSIDE RECORDS SUMMARY | 2025-08-22 10:04 | XMS_ITS | Encounter Summary ---
Author Organization [employer] ([place], [place], [place], [place], [place]) Address [address] [place] [address] Care Team Providers Care Service Technician Copier Name Role Phone Unavailable Primary Care Provider Unavailabl e Encounter Details Date Type Department Care Team (Late st Contact Info) Description 11/19/2018 Transcribed Document [facility] Family Medicine [address] [place] [address] ProviderErika MD [address] [place], [place] [phone] Social History Tobacco Use Types Packs/Day Years [...] 1940 Associated Diagnoses: CAD (coronary artery disease), [place] coronary artery; Thrombocytopenia; Coronary artery disease; HTN [...] S1, S2, No edema. Integumentary: Warm, Dry, [place], incision is C/D/I, He did not follow [...] Prophylaxis: SCDs Diagnosis CAD (coronary artery disease), [place] coronary artery - Admitting, Medical. Thrombocytopenia - [...] Medical. Electronically signed by Christina Saini Conversion Profiling Machine Set Up Operator Cerner at 12/08/2022 12:09 PM CDT documented in this encounter Plan of Treatment Not on file documented as of this encounter Visit Diagnoses Not on filedocumented in this encounter
== END 2025-08-21 23:59 | disposition home or self-care (01) ==
LOC: LAB.DROPOF 08-22 09:51
PROVIDERS: PCP Internal Medicine; Visit Provider Nurse Practitioner Family
DX: R30.0 Dysuria (principal)
CPT/HCPCS: 81001; 87086; 87088